=== PATIENT | male | born 1945 | race Caucasian/White ===

== ENCOUNTER 2022-01-07 10:22 | Emergency (ER) | payer MEDICARE, SELFPAY ==
[2022-01-07 10:24] VITALS: BP 160/76; PULSE 81; RESP 18; TEMP 36.6; O2SAT 96; BMI 34.4
--- NOTE | 2022-01-07 10:40 | EKG12_ITS ---
Test Reason : SOB Blood Pressure : / mmHG Vent. Rate : 063 BPM Atrial Rate : 063 BPM P-R Int : 148 ms QRS Dur : 082 ms QT Int : 404 ms P-R-T Axes : 056 038 043 degrees QTc Int : 413 ms Normal sinus rhythm Normal ECG Confirmed by OLINDA RODRIGUEZ, CALISTA ([id number]), editor greeting card AMBROSIO MOREAU ([id number]) on 01/08/2022 11:06:49 AM Referred By: Raoul Confirmed By:CALISTA PRAKASH MD
--- NOTE | 2022-01-07 10:40 | RAD_ITS ---
STUDY: X-RAY CHEST REASON FOR EXAM: Male, 76 years old. Shortness of Breath TECHNIQUE: Single AP portable view of the chest. COMPARISON: None. FINDINGS: EKG electrodes are seen. Mild elevation of the right hemidiaphragm. The lungs are clear. There is no demonstrated pleural abnormality. Normal size heart. Normal mediastinum and geovany. Normal visualized pulmonary arteries. There is atherosclerotic tortuosity of the aortic arch and descending thoracic aorta. There are diffuse degenerative changes of the visualized thoracic spine. Normal visualized ribs, clavicles, and shoulders. There is no demonstrated abnormality of the visualized soft tissue structures of the upper abdomen. RAD/Chest 1 View (Portable) IMPRESSION: No acute abnormality is seen. Electronically Signed: Jesus Stout MD at 11:12 EDT ,
--- NOTE | 2022-01-07 10:41 | ED.VIS.DYS ---
HPI History of Present Illness Chief Complaint: Shortness of Breath Narrative Narrative: Patient with past medical history of hypertension, diabetes, presents with shortness of breath and orthopnea that has had for the last few weeks. States has had few pounds of weight gain. It is worse at night when he tries to lay flat he gets short of breath. He states he becomes diaphoretic and has sweats also. He denies any leg swelling. No fevers or chills. No cough. He may get slight chest pressure. He states he went to [facility] yesterday where he had a work-up and was told everything is fine. He presents again today because he has continued orthopnea and shortness of breath for weeks. [facility] Medical History GERD (gastroesophageal reflux disease) High cholesterol HTN (hypertension) Home Medications albuterol sulfate 90 mcg/actuation aerosol inhaler (Ventolin HFA) 1 - 2 puff inhalation Q4H PRN PRN Wheezing #1 ea 01/07/22 [Rx Last Taken Unknown] aspirin 81 mg tablet,delayed release 81 mg PO DAILY 01/07/22 [History Last Taken Unknown] glimepiride 4 mg tablet 4 mg PO DAILY 01/07/22 [History Last Taken Unknown] lisinopril 10 mg-hydrochlorothiazide 12.5 mg tablet 1 tab PO DAILY 01/07/22 [History Last Taken Unknown] omeprazole 40 mg capsule,delayed release 40 mg PO DAILY 01/07/22 [History Last Taken Unknown] pioglitazone 30 mg tablet 30 mg PO DAILY 01/07/22 [History Last Taken Unknown] potassium chloride 10 mEq capsule,extended release 10 meq PO DAILY 01/07/22 [History Last Taken Unknown] rosuvastatin 10 mg tablet 10 mg PO DAILY 01/07/22 [History Last Taken Unknown] Allergy/AdvReac Type Severity Reaction Status Date / Time metformin Allergy Upset Verified 01/07/22 10:24 Stomach Social History Smoking Status: Former smoker ROS ROS ED ROS Narrative Constitutional: No fever, no chills. HEENT: No sore throat. No neck pain. No loss of vision. No rhinorrhea. Cardiovascular: No chest pain, but occasional light pressure/tightness. No palpitations. No pedal edema. Respiratory: No cough, positive shortness of breath. Orthopnea and mild dyspnea on exertion. Abdominal: No abdominal pain. No nausea. No vomiting. Genitourinary: No dysuria. No hematuria. Musculoskeletal: No myalgias. No arthralgias. Neurologic: No headaches. No dizziness. No lightheadedness. Skin: No rash. No change in color. Psychiatric: No depression. No anxiety. EXAM Physical Exam Narrative Exam Narrative: Afebrile. Vital signs noted. HEENT: Normocephalic. Atraumatic. PERRL, EOMI. Neck soft and supple. No point tenderness or step off. Cardiovascular: Regular rate and rhythm. No murmurs, rubs, or gallops appreciated. Respiratory: No tachypnea. Lungs clear to auscultation bilaterally. No distress. Speaking in full sentences. Resting comfortably on cot. Gastrointestinal: Abdomen soft, nontender, with normoactive bowel sounds. No rebound or guarding. Neurological: Awake. Alert. Nonfocal, nonlateralizing. Skin: No rash. Normal color. No pallor. Musculoskeletal: No pedal edema. Full range of motion extremities. Const Vital Signs: 01/07/22 10:24 01/07/22 10:36 01/07/22 11:28 Temperature 97.9 F Temperature Source Temporal Pulse Rate 81 71 Respiratory Rate 18 18 Respiratory Effort Non-Labored Blood Pressure 160/76 H 132/67 H Blood Pressure Mean 104 88 Pulse Ox 96 93 Oxygen Delivery Method Room Air Room Air MDM MDM MDM Narrative Medical decision making narrative: Comprehensive work-up was pursued. His pulse ox is 96% on room air without evidence of hypoxia. EKG interpreted by myself demonstrates normal sinus rhythm at 63 bpm without ectopy or acute ST changes. No STEMI. CBC is grossly normal with a normal white count of 7.9, hemoglobin 12.3, hematocrit 39.3. Platelet count normal at 316. CMP is grossly unremarkable except for glucose of 189 with a normal anion gap of 5. BUN slightly elevated at 19 with a creatinine of 1.16. Troponin is 6. Beta natruretic peptide normal at 23.9. Chest x-ray interpreted by myself shows no acute process, no pneumonia or pneumothorax. Patient does wear CPAP at night. I am unsure as to the cause of his orthopnea. However, I do feel he can be discharged safely home. He may have a COPD component to this. I will write him for an albuterol inhaler to use and I recommended that he follow-up with pulmonology. Disposition is discharged home in stable condition. Lab Data Attestation: I reviewed the patient's lab results. Labs: Laboratory Results - last 24 hr 01/07/22 01/07/22 01/07/22 10:41 10:41 10:41 WBC 7.9 RBC 4.55 L Hgb 12.3 L Hct 39.3 L MCV 86.4 MCH 27.0 MCHC 31.3 L RDW Std Deviation 47.4 H RDW Coeff of Micky 14.9 H Plt Count 316 MPV 9.2 Immature Gran % (Auto) 0.400 Neut % (Auto) 72.1 H Lymph % (Auto) 16.1 L [place] % (Auto) 7.2 Eos % (Auto) 3.7 Baso % (Auto) 0.5 Absolute Neuts (auto) 5.7 Absolute Lymphs (auto) 1.28 Nucleated RBC % 0 Sodium 137 Potassium 3.9 Chloride 104 Carbon Dioxide 28.0 Anion Gap 5 BUN 19 H Creatinine 1.16 Estim Creat Clear Calc 52.23 Est GFR (MDRD) Af Amer 79 Est GFR (MDRD) Non-Af 65 BUN/Creatinine Ratio 16.4 Glucose 189 H Calcium 8.9 Total Bilirubin 0.50 AST 15 ALT 17 Alkaline Phosphatase 81 Troponin I High Sens 6 B-Natriuretic Peptide 23.9 Total Protein 7.6 Albumin 3.6 Globulin 4.0 Albumin/Globulin Ratio 0.9 Radiography Diagnostic Testing: Clinical Impression(s) from Imaging Studies Chest X-Ray 01/07/22 10:40 IMPRESSION: No acute abnormality is seen. Electronically Signed: Jesus Stout MD at 11:12 EDT , Discharge Plan Triage Chief Complaint: Shortness of Breath ED Provider: Lior Smith Dx/Rx/DC Orders Clinical Impression: SOB (shortness of breath), Orthopnea Instructions: ED Dyspnea Prescriptions: New albuterol sulfate [Ventolin HFA] 90 mcg/actuation HFA aerosol inhaler 1 - 2 puff inhalation Q4H PRN PRN (Reason: Wheezing) Qty: 1 0RF No Action potassium chloride 10 mEq Capsule, Extended Release 10 meq PO DAILY omeprazole 40 mg Capsule,Delayed Release(Dr/Ec) 40 mg PO DAILY aspirin [Aspir-81] 81 mg Tablet,Delayed Release (Dr/Ec) 81 mg PO DAILY glimepiride 4 mg Tablet 4 mg PO DAILY lisinopril-hydrochlorothiazide 10-12.5 mg Tablet 1 tab PO DAILY pioglitazone 30 mg Tablet 30 mg PO DAILY rosuvastatin 10 mg Tablet 10 mg PO DAILY Primary Care Provider: Chaitanya Hernandez Referrals: Kalin Cobos MD [STAFF PHYSICIAN] - 1-2 Weeks Chaitanya Hernandez MD [Primary Care Provider] - 3-5 Days Disposition Disposition: Home, Self Care
[2022-01-07 10:49] LABS: Absolute Lymphocyte Count 1.28 X10^3/uL (0.83-4.51); Absolute Neutrophil Count 5.7 X10^3/uL (2.0-7.7); Basophil# 0.04 X10^3/uL; Basophil% 0.5 % (0-1); Eosinophil# 0.29 X10^3/uL; Eosinophils% 3.7 % (0-5); Hematocrit 39.3 % (40-54); Hemoglobin 12.3 g/dL (13.0-16.5); Lymphocyte # 1.28 X10^3/ul (0.83-4.51); Lymphocyte % 16.1 % (19-41); Mean Corp Hgb Conc 31.3 g/dL (32-36); Mean Corpuscular Volume 86.4 fL (80-94); Mean Platelet Vol. 9.2 fl (6.2-12.0); Monocyte# 0.57 X10^3/uL; Monocyte% 7.2 % (0-10); NRBC Flagged by Analyzer 0 % (0-5); Neutrophil # 5.72 X10^3/uL (2.7-7.7); Neutrophil % 72.1 % (47-70); Platelet Count 316 K/mm3 (150-450); RBC Distribution Width CV 14.9 % (11.6-14.6); RBC Distribution Width SD 47.4 fl (35.1-43.9); Red Blood Count 4.55 M/mm3 (4.6-6.2); White Blood Count 7.9 K/mm3 (4.4-11.0)
[2022-01-07 11:08] LABS: ALB/GLOB Ratio 0.9 RATIO (0.9-2.4); AST(SGOT) 15 U/L (15-37); Alanine Aminotransfer ALT/SGPT 17 U/L (16-61); Albumin, Serum 3.6 g/dL (3.2-5.0); Alkaline Phosphatase 81 U/L (45-117); Anion Gap 5 (5-15); BUN 19 mg/dL (7-18); BUN/Creat Ratio 16.4 RATIO (10-20); Calcium,Total 8.9 mg/dL (8.5-10.1); Chloride 104 mmol/L (98-107); Creatinine, Serum 1.16 mg/dL (0.70-1.30); EST Glomerular Filtration Rate 65 mL/min (>60); Est Glom Filt Rate - Afr Amer 79 mL/min (>60); Estimated Creatinine Clearance 52.23 ml/min; Glucose 189 mg/dL (74-106); Potassium 3.9 mmol/L (3.5-5.1); Protein, Total 7.6 g/dL (6.4-8.2); Sodium Level 137 mmol/L (136-145); Troponin-I HS 6 pg/mL (3.0-78.0)
[2022-01-07 11:10] LABS: BNP,B-Type NATRIURETIC PEPTIDE 23.9 pg/mL (0-100)
[2022-01-07 11:28] VITALS: BP 132/67; PULSE 71; RESP 18; O2SAT 93
== END 2022-01-07 11:54 | disposition home or self-care (01) ==
PROVIDERS: Emergency Provider Emergency Medicine; PCP Family Medicine; Visit Provider Emergency Medicine
DX: R06.02 Shortness of breath (principal); E11.9 Type 2 diabetes mellitus without complications; R06.01 Orthopnea; I10 Essential (primary) hypertension; E78.00 Pure hypercholesterolemia, unspecified; K21.9 Gastro-esophageal reflux disease without esophagitis; Z87.891 Personal history of nicotine dependence; Z79.899 Other long term (current) drug therapy; Z79.82 Long term (current) use of aspirin; Z79.84 Long term (current) use of oral hypoglycemic drugs
CPT/HCPCS: 71045; 80053; 83880; 84484; 85025; 93005; 99283

== ENCOUNTER 2024-02-01 07:20 | Emergency (ER) | payer MEDICARE, SELFPAY ==
[2024-02-01 07:20] VITALS: BP 126/75; PULSE 117; RESP 19; TEMP 36.3; O2SAT 94; BMI 30.6
--- NOTE | 2024-02-01 07:39 | CT_ITS ---
STUDY: CT ABDOMEN AND PELVIS WITH CONTRAST REASON FOR EXAM: Male, 78 years old. Abdominal pain and cramping with diarrhea/constipation. Patient has a history of stage IV colon cancer. RADIATION DOSAGE (If Supplied By Facility): CTDIvol = ( 15.89 ) mGy, DLP = ( 1098.2 ) mGycm TECHNIQUE: Transaxial images were obtained from the dome of the diaphragm to the symphysis pubis without oral contrast. IV 100mL Isovue-370 was administered. Sagittal and coronal images were reconstructed. Individualized dose optimization techniques were used for this CT. COMPARISON: None. FINDINGS: Multiple large pulmonary metastases are seen at the lung bases. The visualized portions of the heart are within normal limits. Multiple hypodense masses are seen in the liver in keeping with metastatic disease. Normal gallbladder and extrahepatic biliary system. Normal spleen. Normal pancreas. Normal bilateral adrenal glands. Normal right kidney. Normal left kidney. Normal visualized stomach. Increased markings in the peritoneal fat surrounding the distal and terminal ileum as it enters the descending colon. Mild degree of enteritis should be ruled out. The patient is status post right hemicolectomy. Scattered sigmoid diverticula. There is non-visualization of the appendix. There is diffuse atherosclerotic calcification of the abdominal aorta, without a demonstrated aneurysm. Normal inferior vena cava. Normal retroperitoneum. Normal urinary bladder. There are prostatic calcifications. Small bilateral inguinal lymph nodes. There are degenerative changes of the visualized lumbar spine. CT/Abdomen/Pelvis W IV Cont ONLY IMPRESSION: Pulmonary and hepatic metastasis. Status post right hemicolectomy with evidence of inflammatory changes in the distal and terminal ileum at the site of the anastomosis with the colon. Localized enteritis should be ruled out. Electronically Signed: Jesus Stout MD at 9:35 EDT ,
--- NOTE | 2024-02-01 07:40 | EDS_ITS ---
HPI HPI - GI History of Present Illness Chief Complaint: Abd Pain Informant: patient and spouse/S.O. Abdominal Pain/Flank Pain Onset: Days Context: Gradual Onset Timing: Continuous Quality: Aching and Cramping Location: Diffuse Current Severity: Mild Maximum Severity: Mild Worsened by: Nothing Relieved by: Nothing Nausea/Vomiting/Emesis GI Symptom: Positive for Nausea and Vomiting Severity: Mild Diarrhea/Melena/Hematochezia GI Symptom: Positive for Diarrhea; Negative for Melena or Hematochezia Onset: Days Stool Quality: Positive for Loose Severity: Mild Associated Symptoms Associated Symptoms: Negative for Dysuria, Frequency, Hematuria or Urgency Narrative Narrative: 78-year-old male history of stage IV colon cancer with metastases to his liver and lungs. Had partial colectomy and tumor resection done on 424 at [facility]. He does have a prior appendectomy. Has been undergoing chemotherapy about every 10 days the last being Thursday a week ago through Dr. Chris Moran oncologist at [facility]. Patient also has a history of diabetes. Says since last Thursday he has had intermittent abdominal pain and cramping. Says he feels bloated. He had some diarrhea. He has been taking Imodium for that. Denies any dysuria. No fever. He had 2 episodes of nausea and vomiting which is resolved. Denies any fevers had some mild chills. Denies any melena. Prior similar symptoms: No Recent Illness/Hospitalization: No [facility] Medical History Sleep apnea Colon cancer GERD (gastroesophageal reflux disease) High cholesterol HTN (hypertension) Home Medications ?Medication ?Instructions ?Recorded ?Last Taken ?Type aspirin 81 mg tablet,delayed 81 mg PO DAILY 01/07/22 Unknown History release glimepiride 4 mg tablet 4 mg PO DAILY 01/07/22 Unknown History lisinopril 10 1 tab PO DAILY 01/07/22 Unknown History mg-hydrochlorothiazide 12.5 mg tablet omeprazole 40 mg capsule,delayed 40 mg PO DAILY 01/07/22 Unknown History release pioglitazone 30 mg tablet 30 mg PO DAILY 01/07/22 Unknown History potassium chloride 10 mEq 10 meq PO DAILY 01/07/22 Unknown History capsule,extended release rosuvastatin 10 mg tablet 10 mg PO DAILY 01/07/22 Unknown History dexamethasone 4 mg tablet mg 02/01/24 Unknown History hydrochlorothiazide 12.5 mg capsule mg 02/01/24 Unknown History lidocaine-prilocaine 2.5 %-2.5 % 02/01/24 Unknown History topical cream mometasone 50 mcg/actuation nasal intranasal 02/01/24 Unknown History spray ondansetron HCl 8 mg tablet mg 02/01/24 Unknown History prochlorperazine maleate 10 mg mg 02/01/24 Unknown History tablet zolpidem 10 mg tablet mg 02/01/24 Unknown History Allergy/AdvReac Type Severity Reaction Status Date / Time lisinopril Allergy Severe Angioedema Verified 02/01/24 07:27 metformin Allergy Upset Verified 02/01/24 07:26 Stomach Surgical History History of ankle surgery History of knee replacement History of appendectomy History of colon resection Social History Smoking Status: Former smoker ROS ROS ED ROS Narrative Nausea, vomiting and diarrhea. Abdominal pain. Constitutional Constitutional ED: Reports chills ENT ENT ED: Denies ear pain Cardiovascular Cardiovascular: Denies chest pain Respiratory/Chest Respiratory/Chest: Denies cough Gastrointestinal Gastrointestinal: Reports abdominal pain, constipation, diarrhea, nausea and vomiting; Denies melena Genitourinary Genitourinary ED: Denies dysuria or hematuria Musculoskeletal Musculoskeletal: Reports back pain; Denies arthralgias Integumentary Denies abscess Neurologic Neurologic: Denies headache(s) Psychiatric Psychiatric: Denies anxiety Endocrine Endocrinology: Denies polydipsia Hematologic/Lymphatic Hematologic/Lymphatic: Denies easy bleeding Allergic/Immunologic Allergic/Immunologic ED: Denies mouth swelling EXAM Physical Exam Narrative Exam Narrative: Well-appearing 78-year-old male. Vital signs are stable. Afebrile. He does not look septic or toxic. He does look mildly dehydrated. H EENT exam pupils round react to light. No facial droop. Dry mucous membranes. Neck nontender no lymphadenopathy. Lungs clear to auscultation bilaterally. Heart tachycardic rate about 115 no murmur. Abdomen soft mildly tender. No peritoneal signs. No hernia. No obvious obstruction. Back nontender. Moving all 4 extremities. Nontender no edema. Neurologically is awake and alert no focal motor deficits. Const Vital Signs: 02/01/24 07:20 02/01/24 08:14 02/01/24 09:17 Temperature 97.4 F L 97.8 F 97.7 F L Temperature Source Temporal Temporal Temporal Pulse Rate 117 H 80 87 Respiratory Rate 19 H 18 16 Blood Pressure 126/75 H 107/66 127/68 H Blood Pressure Mean 92 79 87 Pulse Ox 94 99 98 Oxygen Delivery Method Room Air Room Air Room Air Positive well nourished and well developed; Negative for cachectic, contractures or unkempt General Appearance ED: well developed and NAD; Negative for unkempt, cachectic, contractures or pallor Nutritional Appearance: Negative for cachectic HEENT Reports dry mucous membranes; Denies moist mucous membranes normocephalic and atraumatic; Negative for trauma or tenderness Mouth ED: Yes dry mucous membranes Mouth: dry mucous membranes Eyes PERRL and EOMs intact bilaterally General Eye ED: Negative for pale conjunctiva or scleral icterus Neck no lymphadenopathy, supple and no JVD General: Negative for tenderness Carotids: Negative for other Lymph Lymphatic: Negative for other Resp normal respiratory effort and clear to auscultation bilaterally Effort and Inspection: Negative for respiratory distress, retractions or pain with movement Auscultation: Negative for rales, rhonchi or wheezes Cardio regular rhythm, S1 normal heart sound, S2 normal heart sound and no murmurs; Negative for regular rate Rate: tachycardic Rhythm: Negative for abnormal rhythm GI non-tender, non-distended and no masses Inspection: Negative for abdominal distention Palpation: soft and tender; Negative for guarding, rigid, hernia, mass, pulsatile mass or rebound tenderness present Back/Spine no CVA tenderness General Back: Negative for CVA tenderness Cervical Spine: Negative for cervical spine tenderness Thoracic Spine / Upper Back: Negative for thoracic spinal tenderness Lumbar Spine / Lower Back: Negative for lumbar spinal tenderness Coccyx: Negative for other Extremity full ROM General Extremety ED: Negative for edema or tenderness General Extremity: Negative for edema Neuro CN's II-XII intact bilaterally and moves all extremities Sensorium / Orientation: alert, oriented to person, oriented to place and oriented to time Motor Exam: strength 5/5 throughout; Negative for general weakness or strength abnormal Psych mental status grossly normal and thought process normal Appearance: Negative for unkempt Attitude: No agitated Mood & Affect: Negative for depressed, anxious or tearful Skin no wounds General Skin Exam: Negative for jaundice or pallor Lesions: no lesions Rashes: no rashes Trauma: Negative for abrasion Nails: Negative for discolored MDM MDM MDM Narrative Medical decision making narrative: 78-year-old male with stage IV metastatic: CA with abdominal pain, cramping and diarrhea. Clinically looks dehydrated and received IV fluids. Morphine for pain and Zofran for nausea. CAT scan and labs are pending. Repeat exam at 10:26 AM patient feeling much better. Abdomen benign. Nausea is resolved. We went over his test results. He is comfortable being discharged home. He has a follow-up appointment to see his oncologist Dr. Chris Moran tomorrow at the [facility]. He knows to return if worse. He has nausea medication at home that he can use. Lab Data Attestation: I reviewed the patient's lab results. Lab results narrative: CBC shows a white count 2.4. H&H 12.6 and 40. Platelets are too numerous to count. Chemistry shows sodium 131. Gap 7. BUN 27 creatinine 1.2 consistent with mild dehydration. He is receiving IV fluids. Glucose 184. Liver enzymes unremarkable. Lipase normal. CAT scan shows the known cancer with liver and lung mets. No signs of acute obstruction or other acute abnormality. Labs: Laboratory Results - last 24 hr 02/01/24 08:05 WBC 2.4 L RBC 5.05 Hgb 12.6 L Hct 40.8 MCV 80.8 MCH 25.0 L MCHC 30.9 L RDW Std Deviation 56.2 H RDW Coeff of Micky 19.9 H Plt Count TNP MPV 9.0 Immature Gran % (Auto) 0.000 Neut % (Auto) 47.0 Lymph % (Auto) 13.6 L [place] % (Auto) 37.7 H Eos % (Auto) 1.3 Baso % (Auto) 0.4 Absolute Neuts (auto) 1.1 L Absolute Lymphs (auto) 0.32 L Nucleated RBC % 0 Differential Comment SCANNED Diff Path Review May foll Platelet Estimate ADEQUATE Sodium 131 L Potassium 3.8 Chloride 100 Carbon Dioxide 24.0 Anion Gap 7 BUN 27 H Creatinine 1.20 Estim Creat Clear Calc 55.68 Est GFR (MDRD) Af Amer 76 Est GFR (MDRD) Non-Af 63 BUN/Creatinine Ratio 22.5 H Glucose 184 H Calcium 8.8 Total Bilirubin 1.30 H AST 10 L ALT 8 L Alkaline Phosphatase 86 Total Protein 6.9 Albumin 2.6 L Globulin 4.3 H Albumin/Globulin Ratio 0.6 L Lipase < 10 L Radiography Diagnostic Testing: Clinical Impression(s) from Imaging Studies Abdomen/Pelvis CT 02/01/24 07:39 IMPRESSION: Pulmonary and hepatic metastasis. Status post right hemicolectomy with evidence of inflammatory changes in the distal and terminal ileum at the site of the anastomosis with the colon. Localized enteritis should be ruled out. Electronically Signed: Jesus Stout MD at 9:35 EDT , Discharge Plan Triage Chief Complaint: Abd Pain ED Provider: Genaro Pressley Dx/Rx/DC Orders Clinical Impression: Abdominal pain, History of colon cancer, History of chemotherapy, Acute dehydration Instructions: Abdominal Pain, ED Dehydration (Adult) Prescriptions: No Action potassium chloride 10 mEq Capsule, Extended Release 10 meq PO DAILY omeprazole 40 mg Capsule,Delayed Release(Dr/Ec) 40 mg PO DAILY aspirin [Aspir-81] 81 mg Tablet,Delayed Release (Dr/Ec) 81 mg PO DAILY glimepiride 4 mg Tablet 4 mg PO DAILY lisinopril-hydrochlorothiazide 10-12.5 mg Tablet 1 tab PO DAILY pioglitazone 30 mg Tablet 30 mg PO DAILY rosuvastatin 10 mg Tablet 10 mg PO DAILY ondansetron HCl 8 mg tablet Patient Comments: TAKE 1 TABLET BY MOUTH EVERY 8 HOURS NEEDED FOR NAUSEA AND VOMITING prochlorperazine maleate 10 mg tablet Patient Comments: TAKE 1 TABLET BY MOUTH EVERY 6 HOURS NEEDED lidocaine-prilocaine 2.5-2.5 % cream Patient Comments: APPLY CREAM TOPICALLY TO AFFECTED AREA NEEDED dexamethasone 4 mg tablet Patient Comments: TAKE 1 TABLET BY MOUTH TWICE DAILY WITH MEAL(S) FOR 3 DAYS BEGINNING THE DAY AFTER CHEMOTHERAPY TREATMENT hydrochlorothiazide 12.5 mg capsule Patient Comments: TAKE 1 CAPSULE BY MOUTH ONCE DAILY mometasone 50 mcg/actuation spray,non-aerosol INTRANASAL Patient Comments: USE 1 SPRAY(S) IN EACH NOSTRIL TWICE DAILY zolpidem 10 mg tablet Patient Comments: TAKE 1 TABLET BY MOUTH AT BEDTIME Primary Care Provider: Chaitanya Hernandez Referrals: Chaitanya Hernandez MD [Primary Care Provider] - Chris Moran DO [Med Staff - Active Staff] - 1 Day Activity Restrictions/Additional Instructions: Plenty of fluids and rest. Water, Gatorade and 7-Up. Use your nausea medication as needed. Follow-up with your oncologist Dr. Chris Moran tomorrow as scheduled. Print Language: Czech Disposition Disposition: Home, Self Care
[2024-02-01] MEDS: 0.9% Normal Saline (1000mL) 1,000 ML 999 ML IV (08:05)
[2024-02-01] MEDS: Morphine 4 MG/ML Syringe IV (08:05)
[2024-02-01] MEDS: Ondansetron 4 MG/2 ML Vial IV (08:05)
[2024-02-01 08:14] VITALS: BP 107/66; PULSE 80; RESP 18; TEMP 36.6; O2SAT 99
[2024-02-01 08:19] LABS: Absolute Lymphocyte Count 0.32 X10^3/uL (0.83-4.51); Absolute Neutrophil Count 1.1 X10^3/uL (2.0-7.7); Basophil# 0.01 X10^3/uL; Basophil% 0.4 % (0-1); Eosinophil# 0.03 X10^3/uL; Eosinophils% 1.3 % (0-5); Hematocrit 40.8 % (40-54); Hemoglobin 12.6 g/dL (13.0-16.5); Lymphocyte # 0.32 X10^3/ul (0.83-4.51); Lymphocyte % 13.6 % (19-41); Mean Corp Hgb Conc 30.9 g/dL (32-36); Mean Corpuscular Volume 80.8 fL (80-94); Monocyte# 0.89 X10^3/uL; Monocyte% 37.7 % (0-10); NRBC Flagged by Analyzer 0 % (0-5); Neutrophil # 1.11 X10^3/uL (2.7-7.7); POSITIVE COUNT YES; POSITIVE DIFFERENTIAL YES; POSITIVE MORPHOLOGY YES; RBC Distribution Width CV 19.9 % (11.6-14.6); RBC Distribution Width SD 56.2 fl (35.1-43.9); Red Blood Count 5.05 M/mm3 (4.6-6.2); White Blood Count 2.4 K/mm3 (4.4-11.0)
[2024-02-01 08:35] LABS: ALB/GLOB Ratio 0.6 RATIO (0.9-2.4); AST(SGOT) 10 U/L (15-37); Alanine Aminotransfer ALT/SGPT 8 U/L (16-61); Albumin, Serum 2.6 g/dL (3.2-5.0); Alkaline Phosphatase 86 U/L (45-117); Anion Gap 7 (5-15); BUN 27 mg/dL (7-18); BUN/Creat Ratio 22.5 RATIO (10-20); Calcium,Total 8.8 mg/dL (8.5-10.1); Chloride 100 mmol/L (98-107); EST Glomerular Filtration Rate 63 mL/min (>60); Est Glom Filt Rate - Afr Amer 76 mL/min (>60); Estimated Creatinine Clearance 55.68 ml/min; Globulin 4.3 g/dL (2.2-4.2); Glucose 184 mg/dL (74-106); Lipase < 10 U/L (13-75); Potassium 3.8 mmol/L (3.5-5.1); Protein, Total 6.9 g/dL (6.4-8.2); Sodium Level 131 mmol/L (136-145)
[2024-02-01 08:41] LABS: Differential Indicated SCAN CRITERIA MET
[2024-02-01 08:42] LABS: Differential Comment SCANNED; Platelet Estimate ADEQUATE (ADEQ)
[2024-02-01 09:17] VITALS: BP 127/68; PULSE 87; RESP 16; TEMP 36.5; O2SAT 98
[2024-02-01 10:34] VITALS: BP 118/80; PULSE 87; RESP 16; O2SAT 97
[2024-02-01 10:47] LABS: Bacteria 0 SEEN /hpf (None Seen); Mucous, Urine 0 SEEN /hpf (<or=2+); Red Blood Cells-Urine 0 SEEN /hpf (0-5)
[2024-02-01 10:48] LABS: Color, Urine Yellow (Yellow); Glucose, Dipstick Normal (Normal); Ketone-Dipstick Negative (Negative); Leukocyte Esterase-Dipstick 25 /ul (Negative); Nitrite-Dipstick Positive (Negative); Occult Blood-Urine 10 /ul (Negative); Protein-Dipstick 30 mg/dl (Negative); Specific Gravity, Urine 1.005 (1.002-1.030); Urine Bilirubin Dipstick Negative (Negative); Urine Clarity Clear (Clear); Urine Urobilinogen 1 mg/dl (Normal); Urine pH 6.5 (5.0 - 8.0)
[2024-02-01 11:01] LABS: Squamous Epithelial Cells - UA 0-5 SEEN /hpf (0-5); White Blood Cells 0-5 SEEN /hpf (0-5)
[2024-02-02 14:54] LABS: Pathologist Review Reviewed
== END 2024-02-01 10:43 | disposition home or self-care (01) ==
PROVIDERS: Emergency Provider Emergency Medicine; PCP Family Medicine; Visit Provider Emergency Medicine
DX: R10.9 Unspecified abdominal pain (principal); C78.7 Secondary malignant neoplasm of liver and intrahepatic bile duct; C78.01 Secondary malignant neoplasm of right lung; C78.02 Secondary malignant neoplasm of left lung; E11.9 Type 2 diabetes mellitus without complications; R11.2 Nausea with vomiting, unspecified; E86.0 Dehydration; R19.7 Diarrhea, unspecified; I10 Essential (primary) hypertension; E78.00 Pure hypercholesterolemia, unspecified; Z79.82 Long term (current) use of aspirin; Z79.84 Long term (current) use of oral hypoglycemic drugs; Z79.899 Other long term (current) drug therapy; Z87.891 Personal history of nicotine dependence; Z90.49 Acquired absence of other specified parts of digestive tract
CPT/HCPCS: 36591; 74177; 80053; 81001; 83690; 85025; 96361; 96374; 96375; 99284; J7030; Q9967; A4216; J2405

== ENCOUNTER 2024-11-24 07:46 | Outpatient (CLI) | payer MEDICARE, SELFPAY ==
[2024-11-24 08:01] VITALS: BP 126/55; PULSE 101; RESP 18; TEMP 36.6; O2SAT 93; BMI 28.6
[2024-11-24 08:38] VITALS: BP 105/44; PULSE 85; RESP 18; TEMP 37; O2SAT 96
[2024-11-24 09:38] VITALS: BP 103/49; PULSE 74; RESP 16; TEMP 36.9; O2SAT 96
[2024-11-24 10:42] VITALS: BP 97/43; PULSE 74; RESP 16; TEMP 36.8; O2SAT 92
[2024-11-24 11:40] VITALS: BP 121/66; PULSE 84; RESP 16; TEMP 36.2
== END 2024-11-24 23:59 | disposition home or self-care (01) ==
LOC: MEDOUTP 07:48
PROVIDERS: PCP Family Medicine; Referring Provider Internal Medicine Hematology & Oncology; Visit Provider Internal Medicine Hematology & Oncology
DX: D64.9 Anemia, unspecified (principal)
CPT/HCPCS: 36430; 86850; 86900; 86901; 86920; P9016; A4216

== ENCOUNTER 2025-01-09 13:12 | Inpatient (IN) | payer MEDICARE, SELFPAY ==
[2025-01-09] VITALS (17 sets, daily range): BP systolic 96–113; BP diastolic 47–56; PULSE 67–106; RESP 16–34; TEMP 36–37.2; O2SAT 90–98; BMI 25.0; BMI 25.7
--- NOTE | 2025-01-09 13:31 | EKG12_ITS ---
Test Reason : SOB Blood Pressure : */* mmHG Vent. Rate : 86 BPM Atrial Rate : 86 BPM P-R Int : 128 ms QRS Dur : 88 ms QT Int : 402 ms P-R-T Axes : 53 38 26 degrees QTcB Int : 481 ms Sinus rhythm with Premature atrial complexes BORDERLINE Reconfirmed by Brayan Johansen ([id number]), editor index JIM IBARRA ([id number]) on 01/11/2025 11:18:28 AM Referred By: Confirmed By: Brayan Johansen
[2025-01-09] MEDS: Piperacil/Tazobactam 4.5 GM in 0.9% Normal Saline (100mL MB+) 100 ML IV (14:01)
[2025-01-09] MEDS: 0.9% Normal Saline (1000mL) 1,000 ML 999 ML IV ×3 (14:01→20:12)
--- NOTE | 2025-01-09 14:04 | EX.ED.DYSGE1 ---
"HPI History of Present Illness Chief Complaint: Shortness of Breath Informant: patient and family Narrative Narrative: Sent from PCP office for admission for concerning sepsis. I spoke with Dr. Hudson prior to patient arrival. 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 He stopped his chemotherapy few months ago due to side effects. Couple weeks ago was admitted to [facility] for day due to dehydration. Last 2 days increasing productive sputum. He denies urinary symptoms denies vomiting diarrhea. Reports heart rate was 120s in the office he had a 20 pound weight loss. Patient had prescription of Augmentin and Z-Angelo for which they picked up however not started. Outpatient chest x-ray concerning for new left sided pneumonia. Reported his white count increase also from lab work. Oncologist Dr. Moran. Prior similar symptoms: Yes [facility] Medical History Sleep apnea Colon cancer GERD (gastroesophageal reflux disease) High cholesterol HTN (hypertension) Home Medications ?Medication ?Instructions ?Recorded ?Last Taken ?Type aspirin 81 mg tablet,delayed 81 mg PO DAILY 01/07/22 01/08/25 History release glimepiride 4 mg tablet 4 mg PO DAILY 01/07/22 01/09/25 History omeprazole 40 mg capsule,delayed 40 mg PO DAILY 01/07/22 01/08/25 History release pioglitazone 30 mg tablet 30 mg PO DAILY 01/07/22 01/08/25 History rosuvastatin 10 mg tablet 10 mg PO DAILY 01/07/22 01/09/25 History mometasone 50 mcg/actuation nasal 2 spray intranasal DAILY 02/01/24 01/08/25 History spray ondansetron HCl 8 mg tablet 8 mg PO Q8H PRN nausea and vomiting 02/01/24 Unknown History prochlorperazine maleate 10 mg 10 mg PO Q6H PRN nausea and 02/01/24 Unknown History tablet vomiting zolpidem 10 mg tablet 10 mg PO QHS PRN PRN sleep 02/01/24 Unknown History insulin glargine 100 unit/mL (3 20 unit subcut DAILY 11/24/24 Unknown History mL) subcutaneous pen (Lantus Solostar U-100 Insulin) acyclovir 400 mg tablet 400 mg PO BID 01/09/25 01/09/25 History amoxicillin 875 mg-potassium 1 tab PO BID 01/09/25 Unknown History clavulanate 125 mg tablet azithromycin 250 mg tablet 250 mg PO UD 01/09/25 Unknown History hydrochlorothiazide 12.5 mg tablet 12.5 mg PO DAILY 01/09/25 01/09/25 History magnesium chloride 71.5 mg 71.5 mg PO BID 01/09/25 01/09/25 History (magnesium chloride) tablet,delayed release (Slow-Mag) mirtazapine 15 mg tablet 15 mg PO QHS 01/09/25 Unknown History potassium chloride 10 mEq 10 meq PO BID 01/09/25 01/09/25 History tablet,extended release Allergy/AdvReac Type Severity Reaction Status Date / Time lisinopril Allergy Severe Angioedema Verified 01/09/25 13:14 metformin Allergy Upset Verified 01/09/25 13:14 Stomach Surgical History History of ankle surgery History of knee replacement History of appendectomy History of colon resection Social History housing: house Smoking Status: Former smoker ROS ROS ED Constitutional Constitutional ED: Denies chills, fever(s) or sweats ENT ENT ED: Denies sore throat Cardiovascular Cardiovascular: Denies chest pain, leg edema, palpitations or racing heartbeat Respiratory/Chest Respiratory/Chest: Reports cough; Denies dyspnea or dyspnea on exertion Gastrointestinal Gastrointestinal: Denies abdominal pain, diarrhea, nausea or vomiting Genitourinary Genitourinary ED: Denies dysuria, hematuria or urinary frequency Musculoskeletal Musculoskeletal: Denies back pain, extremity pain or neck pain Integumentary Denies rash or wounds Neurologic Neurologic: Denies headache(s), paresthesias or weakness EXAM Physical Exam Const Vital Signs: 01/09/25 13:13 01/09/25 13:58 01/09/25 13:58 Temperature 97.8 F 98.9 F Temperature Source Oral Oral Pulse Rate 106 H 86 Respiratory Rate 20 H 20 H Respiratory Effort Respiratory Depth Respiratory Pattern Blood Pressure 113/56 L 112/53 L Blood Pressure Mean 75 72 Pulse Ox 93 92 92 Oxygen Delivery Method Room Air Room Air Room Air 01/09/25 13:58 01/09/25 14:14 01/09/25 15:00 Temperature 98.6 F 98.6 F Temperature Source Oral Oral Pulse Rate 81 79 Respiratory Rate 21 H 18 Respiratory Effort Normal Non-Labored Respiratory Depth Normal Respiratory Pattern Normal Blood Pressure 96/54 L 96/53 L Blood Pressure Mean 68 67 Pulse Ox 90 90 Oxygen Delivery Method Room Air Room Air Room Air 01/09/25 16:00 Temperature 98.6 F Temperature Source Oral Pulse Rate 73 Respiratory Rate 18 Respiratory Effort Respiratory Depth Respiratory Pattern Blood Pressure 96/56 L Blood Pressure Mean 69 Pulse Ox 98 Oxygen Delivery Method Room Air Positive well nourished and well developed Constitutional Narrative: Nontoxic, no respiratory distress. General Appearance ED: well developed and NAD HEENT Reports moist mucous membranes normocephalic and atraumatic Eyes General Eye ED: Yes normal appearance of both eyes Neck full ROM Chest Wall Chest: Negative for tenderness Resp normal respiratory effort and normal air movement Effort and Inspection: symmetric chest movement; Negative for respiratory distress Cardio regular rhythm and no murmurs Rate: tachycardic Peripheral Pulses: pulses 2+ throughout GI normal to inspection, nondistended, normoactive bowel sounds and non-tender Palpation: Negative for guarding or rebound tenderness present Extremity normal to inspection General Extremety ED: Negative for edema or tenderness General Extremity: Negative for edema Neuro oriented x3 and no sensory deficits noted Sensorium / Orientation: awake and alert Skin no rashes or lesions noted and no wounds MDM MDM MDM Narrative Medical decision making narrative: Interventions / MDM: Differential diagnosis: Sepsis, pneumonia, metastatic cancer history, anemia Diagnosis considered but do not suspect: N/A My EKG interpretation: Sinus rate of 86, no ST changes. Imaging independently reviewed and interpreted by myself: 1 view chest x-ray: Right lower lobe mass structure noted left lower lobe infiltrative findings. External documents reviewed: Faxed paperwork from primary care chest X today small area of consolidation left lower lobe increasing pulmonary metastasis. Patient outpatient white count of 22 with hemoglobin 7.6. Test considered but not ordered:N/A ED course: Patient here for new pneumonia tachycardic. There is concerns for sepsis. 93% room air. Sepsis labs were ordered. Labs obtain outside hospital system. Will recheck labs and chest x-ray. Blood cultures ordered along with lactic acid. He is covered with Zosyn and vancomycin with his hospitalization 2 weeks ago. 1515: Hemoglobin returned at 5.9. Denies any black or bloody stools. Patient family was transfused blood approximately a month ago as an outpatient. From labs hemoglobin was 12.6 in January of last year. Per family when he was transfused is around the 7 range when he was discharged from the hospital couple weeks ago he was in the 8 range. No cardiac history. Rectal exam had some brown stools with Hemoccult sent. Will type and cross for 1 unit of blood. 1630: Hemoccult returned negative. Patient with pneumonia, anemia, will discuss with hospitalist for admission. I did discuss with GI Dr. Friend, patient was declining any investigations for the anemia from a GI standpoint. Lactic acid was normal. Initial tachycardia white count 13.7 meeting SIRS criteria. Normal creatinine, normal lactic acid, blood pressure 96/56. Currently on room air. Does not meet sepsis at this time. 1640: I spoke with Dr. Baker of the patient's history and findings. Pressures in the 90s, he was placed in the ICU for close monitoring. Re-evaluation: stable Disposition discussed with patient/family/significant other: Patient and family Case discussed with consulting clinician: Gastroenterology, hospitalist This note was generated with [employer] dictation software. It may contain incorrect words, spelling, and punctuation that were not noted in checking the note before signing. Lab Data Attestation: I reviewed the patient's lab results. Labs: Laboratory Results - last 24 hr 01/09/25 14:08 WBC 13.7 H RBC 2.19 L Hgb 5.9 L* Hct 19.8 L MCV 90.4 MCH 26.9 L MCHC 29.8 L RDW Std Deviation 69.5 H RDW Coeff of Micky 21.6 H Plt Count 280 MPV 9.8 Immature Gran % (Auto) 1.200 H Neut % (Auto) 87.1 H Lymph % (Auto) 6.0 L [place] % (Auto) 5.3 Eos % (Auto) 0.1 Baso % (Auto) 0.3 Absolute Neuts (auto) 11.9 H Absolute Lymphs (auto) 0.82 L Nucleated RBC % 0 Differential Comment SCANNED Platelet Estimate ADEQUATE Polychromasia 1+ Hypochromasia 2+ Anisocytosis 2+ PT 16.4 H INR 1.3 APTT 39.6 H Sodium 133 Potassium 3.6 Chloride 96 L Carbon Dioxide 26.0 Anion Gap 11 BUN 19 Creatinine 1.05 Estim Creat Clear Calc 55.08 Est GFR (MDRD) Non-Af 73 BUN/Creatinine Ratio 17.7 Glucose 177 H Lactic Acid 1.4 Calcium 8.5 Total Bilirubin 0.93 AST 29 ALT 14 Alkaline Phosphatase 130 H Total Protein 7.5 Albumin 2.4 L Globulin 5.1 H Albumin/Globulin Ratio 0.5 L Critical Care Time Critical Care Time: Yes Critical care time (excluding procedures): 30-74 minutes, Discussing w/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, Discussing w/Consultants, Arranging Admission or Transfer, Performing Direct Patient Care at Bedside and - (35 minutes) Discharge Plan Triage Chief Complaint: Shortness of Breath ED Provider: Alexandro Navarro Dx/Rx/DC Orders Clinical Impression: Pneumonia, Anemia, Colon cancer metastasized to multiple sites Prescriptions: No Action omeprazole 40 mg Capsule,Delayed Release(Dr/Ec) 40 mg PO DAILY aspirin [Aspir-81] 81 mg Tablet,Delayed Release (Dr/Ec) 81 mg PO DAILY glimepiride 4 mg Tablet 4 mg PO DAILY Patient Comments: was told today by Dr Mazariegos to stop taking pioglitazone 30 mg Tablet 30 mg PO DAILY rosuvastatin 10 mg Tablet 10 mg PO DAILY insulin glargine [Lantus Solostar U-100 Insulin] 100 unit/mL (3 mL) insulin pen 20 unit SUBCUT DAILY Patient Comments: USE 20 UNITS SUBCUTANEOUSLY ONCE A DAY IF SUGAR LEVELS ARE OVER 200 IN THE MORNING BEFORE BREAKFAST states hasn't had insulin since he had chemo potassium chloride 10 mEq tablet extended release 10 meq PO BID acyclovir 400 mg tablet 400 mg PO BID hydrochlorothiazide 12.5 mg tablet 12.5 mg PO DAILY Slow-Mag 71.5 mg tablet,delayed release (DR/EC) 71.5 mg PO BID azithromycin 250 mg tablet 250 mg PO UD Patient Comments: has not started yet mirtazapine 15 mg tablet 15 mg PO QHS amoxicillin-pot clavulanate 875-125 mg tablet 1 tab PO BID Patient Comments: has not started yet ondansetron HCl 8 mg tablet 8 mg PO Q8H PRN (Reason: nausea and vomiting) Patient Comments: TAKE 1 TABLET BY MOUTH EVERY 8 HOURS NEEDED FOR NAUSEA AND VOMITING prochlorperazine maleate 10 mg tablet 10 mg PO Q6H PRN (Reason: nausea and vomiting) Patient Comments: TAKE 1 TABLET BY MOUTH EVERY 6 HOURS NEEDED mometasone 50 mcg/actuation spray,non-aerosol 2 spray INTRANASAL DAILY Patient Comments: USE 1 SPRAY(S) IN EACH NOSTRIL TWICE DAILY zolpidem 10 mg tablet 10 mg PO QHS PRN PRN (Reason: sleep) Patient Comments: TAKE 1 TABLET BY MOUTH AT BEDTIME Primary Care Provider: Chaitanya Mazariegos Referrals: Chaitanya Mazariegos MD [Primary Care Provider] - Print Language: Palestinian Disposition Disposition: Acute Care Hospital [facility]"
--- NOTE | 2025-01-09 14:10 | RAD_ITS ---
PROCEDURE: CHEST 1 VIEW (PORTABLE) 01/09/2025 REASON FOR EXAM: COUGH TECHNIQUE: Frontal view of the chest.. AP portable upright radiograph of the chest. COMPARISON: Chest x-ray study dated 01/07/2022 FINDINGS: Heart and Mediastinum: Heart size and configuration are within normal limits. Pulmonary vasculature is prominent centrally. Arteriosclerotic vascular disease of the aorta is noted. Trachea is midline. Lungs: A 4.8 cm nodular density is noted in the right lower lobe. Prominent alveolar markings are noted in the left lung. A 3.3 cm nodular density is projected over the left upper lobe laterally. Small bilateral pleural effusions are noted. Compressive atelectasis of the adjacent lung bases is noted. Alveolar airspace disease processes are seen in the lower lobes bilaterally. Bones: Diffuse osteopenia of the bony thorax is seen. No acute osseous abnormality is noted. A left-sided central venous line port tip is located in the region of the superior vena cava. Cardiac leads overlie the chest. RAD/Chest 1 View (Portable) IMPRESSION: Bilateral airspace disease processes most likely representing pneumonic infiltr ates and/or compressive atelectasis. Small bilateral pleural effusions with adjacent compressive atelectasis of the lung bases. Recommendation: Follow-up x-ray to follow these processes until they completely resolve to exclude underlying pathology. CT examination may also be warranted if clinically warranted. Reading Location: [id number]
[2025-01-09 14:21] LABS: Hematocrit 19.8 % (40-54); Immature Granulocytes Count 0.170 X10^3/uL (0.0-0.0); Mean Corp Hgb Conc 29.8 g/dL (32-36); Mean Corpuscular Volume 90.4 fL (80-94); Mean Platelet Vol. 9.8 fl (6.2-12.0); NRBC Flagged by Analyzer 0 % (0-5); POSITIVE COUNT YES; POSITIVE MORPHOLOGY YES; Platelet Count 280 K/mm3 (150-450); RBC Distribution Width CV 21.6 % (11.6-14.6); RBC Distribution Width SD 69.5 fl (35.1-43.9); Red Blood Count 2.19 M/mm3 (4.6-6.2); White Blood Count 13.7 K/mm3 (4.4-11.0)
[2025-01-09 14:30] LABS: Differential Indicated SCAN CRITERIA MET
[2025-01-09 14:34] LABS: Prothrombin Time (Protime)PT. 16.4 SECONDS (11.7-14.9)
[2025-01-09 14:35] LABS: Partial Thromboplast Time 39.6 Seconds (24.1-36.2)
[2025-01-09 14:40] LABS: Hemoglobin 5.9 g/dL (13.0-16.5)
[2025-01-09 15:03] LABS: AST(SGOT) 29 U/L (<=37); Alanine Aminotransfer ALT/SGPT 14 U/L (<=46); Albumin, Serum 2.4 g/dL (3.4-4.8); Alkaline Phosphatase 130 U/L (40-129); Anion Gap 11 (5-15); BUN 19 mg/dL (4-19); BUN/Creat Ratio 17.7 RATIO (10-20); Calcium,Total 8.5 mg/dL (7.6-11.0); Carbon Dioxide 26.0 mmol/L (21.0-32.0); Chloride 96 mmol/L (98-108); Estimated Creatinine Clearance 55.08 ml/min (50-250); Globulin 5.1 g/dL (2.2-4.2); Glucose 177 mg/dL (70-99); Potassium 3.6 mmol/L (3.3-5.1)
[2025-01-09] MEDS: Vancomycin HCl 1,750 MG in 0.9% Normal Saline (500mL Bag) 500 ML 250 MG IV (15:10)
[2025-01-09 15:22] LABS: Differential Comment SCANNED
[2025-01-09 15:23] LABS: Anisocytosis 2+; Polychromasia 1+
[2025-01-09 15:24] LABS: Hypochromasia 2+
--- NOTE | 2025-01-09 16:40 | SEPSISATNOTE ---
Sepsis Attestation Sepsis Alert: Yes Sepsis Attestation: Agree w/Sepsis Date exam was performed: 01/09/25 Time exam was performed: 16:40 Possible Source of Sepsis: Pulmonary Supportive Findings: Systolic blood pressure about 94-96, leukocytosis, severe anemia Fluid Resuscitation Fluid resuscitation indicated?: Yes Fluid Resuscitation ordered: 30 ml/kg fluid bolus ordered Amount of fluid ordered: 2,230 Sepsis Note Date exam was performed: 01/09/25 Time exam was performed: 19:58 Sepsis Attestation: Sepsis re-evaluation was performed Response to fluids: Fluid responsive hypotension
--- NOTE | 2025-01-09 16:46 | PCM.HP.STD ---
HPI - General General Date of Admission: 01/09/25 Date of Service: 01/09/25 Chief Complaint: Productive cough, mild shortness of breath for 1 to 2 weeks HPI Narrative DIPTI SIERRA, is a 79 M who was sent to ED by PCP for productive cough, shortness of breath for about 2 weeks. He is not doing well after recent chemotherapy about 2 weeks ago, FOLFIRI by his oncologist Dr. Chris Moran. After chemotherapy patient had diarrhea, weakness, nausea and vomiting decreased oral intake and loss of weight from 180 to 160 pounds. Since then patient also getting productive cough with brownish/greenish sputum along with mild shortness of breath. He denies any fever or chills. His diarrhea has been resolved 2 days in the PCP office, he was found to have tachycardia heart rate more than 100 and, leukocytosis, 22.4 thousand, anemia hemoglobin 7.6 normal platelet count. Chest x-ray was done which shows left lower lobe consolidation and pulmonary metastasis. In ED, patient blood pressure was found very low, systolic 94, clinically dry, short of breath requiring 2 L of oxygen. He was afebrile. H&H also found 5.9/19.8% Patient finally admitted in ICU with concern of possible sepsis [facility] Medical History Sleep apnea Colon cancer GERD (gastroesophageal reflux disease) High cholesterol HTN (hypertension) Home Medications ?Medication ?Instructions ?Recorded ?Last Taken ?Type aspirin 81 mg tablet,delayed 81 mg PO DAILY 01/07/22 01/08/25 History release glimepiride 4 mg tablet 4 mg PO DAILY 01/07/22 01/09/25 History omeprazole 40 mg capsule,delayed 40 mg PO DAILY 01/07/22 01/08/25 History release pioglitazone 30 mg tablet 30 mg PO DAILY 01/07/22 01/08/25 History rosuvastatin 10 mg tablet 10 mg PO DAILY 01/07/22 01/09/25 History mometasone 50 mcg/actuation nasal 2 spray intranasal DAILY 02/01/24 01/08/25 History spray ondansetron HCl 8 mg tablet 8 mg PO Q8H PRN nausea and vomiting 02/01/24 Unknown History prochlorperazine maleate 10 mg 10 mg PO Q6H PRN nausea and 02/01/24 Unknown History tablet vomiting zolpidem 10 mg tablet 10 mg PO QHS PRN PRN sleep 02/01/24 Unknown History insulin glargine 100 unit/mL (3 20 unit subcut DAILY 11/24/24 Unknown History mL) subcutaneous pen (Lantus Solostar U-100 Insulin) acyclovir 400 mg tablet 400 mg PO BID 01/09/25 01/09/25 History amoxicillin 875 mg-potassium 1 tab PO BID 01/09/25 Unknown History clavulanate 125 mg tablet azithromycin 250 mg tablet 250 mg PO UD 01/09/25 Unknown History hydrochlorothiazide 12.5 mg tablet 12.5 mg PO DAILY 01/09/25 01/09/25 History magnesium chloride 71.5 mg 71.5 mg PO BID 01/09/25 01/09/25 History (magnesium chloride) tablet,delayed release (Slow-Mag) mirtazapine 15 mg tablet 15 mg PO QHS 01/09/25 Unknown History potassium chloride 10 mEq 10 meq PO BID 01/09/25 01/09/25 History tablet,extended release Allergy/AdvReac Type Severity Reaction Status Date / Time lisinopril Allergy Severe Angioedema Verified 01/09/25 13:14 metformin Allergy Upset Verified 01/09/25 13:14 Stomach Surgical History History of ankle surgery History of knee replacement History of appendectomy History of colon resection Social History housing: house Smoking Status: Former smoker ROS ROS Narrative Constitutional: Reports fatigue and weakness after chemotherapy. No fever. Fatigue and frail HEENT: Reports systems reviewed and no addt'l complaints, except as documented Respiratory/Chest: Mild shortness of breath mainly on exertion. No wheezing. Prior history of smoking. CVS: No acute chest pressure or tightness. Gastrointestinal: Denies coffee ground emesis, hematemesis or vomiting. He had after chemotherapy as described in HPI Genitourinary: Denies burning urination or new urinary tract symptoms Musculoskeletal: Denies acute joint pain or limited range of motion. No acute injury Neurologic: Denies seizure-like symptoms. skin: No ulcer. 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 Reports systems reviewed and no addt'l complaints, except as documented Rest 14 ROS are negative except as mentioned in HPI Vital Signs Vital Signs Vital Signs: 01/09/25 13:13 01/09/25 13:58 01/09/25 13:58 Temperature 97.8 F 98.9 F Temperature Source Oral Oral Pulse Rate 106 H 86 Respiratory Rate 20 H 20 H Respiratory Effort Respiratory Depth Respiratory Pattern Blood Pressure 113/56 L 112/53 L Blood Pressure Mean 75 72 Pulse Ox 93 92 92 Oxygen Delivery Method Room Air Room Air Room Air 01/09/25 13:58 01/09/25 14:14 01/09/25 15:00 Temperature 98.6 F 98.6 F Temperature Source Oral Oral Pulse Rate 81 79 Respiratory Rate 21 H 18 Respiratory Effort Normal Non-Labored Respiratory Depth Normal Respiratory Pattern Normal Blood Pressure 96/54 L 96/53 L Blood Pressure Mean 68 67 Pulse Ox 90 90 Oxygen Delivery Method Room Air Room Air Room Air 01/09/25 16:00 01/09/25 16:34 Temperature 98.6 F 98.6 F Temperature Source Oral Pulse Rate 73 73 Respiratory Rate 18 18 Respiratory Effort Respiratory Depth Respiratory Pattern Blood Pressure 96/56 L 96/56 L Blood Pressure Mean 69 69 Pulse Ox 98 98 Oxygen Delivery Method Room Air Weight Weight: 160 lb Body Mass Index (BMI) 25.0 Physical Exam Narrative General: Alert, Oriented x3, Cooperative. BMI 25.7 kg/m?, recent loss of weight HEENT: Atraumatic, PERRLA, EOMI, Normocephalic. Oral: Oral mucosa dry no Gingival or Mucosal Lesions/ Ulcerations Neck: Supple, No JVD, Negative Carotid Bruits Chest wall/Lungs: Left upper chest Mediport. Air entry diminished in left lung base. Bilateral lower lobe crepitations. Mild hypoxia. Tachypnea present Cardiovascular: Regular rate and rhythm, Normal S1,S2, No M/G/R Abdomen: Bowel Sounds sluggish, Soft, Non Tender, Non-Distended : No dysuria. No renal angle tenderness. No suprapubic tenderness. Extremities: No edema, Capillary Refill Less than 3 Seconds Skin: No rashes, No breakdown Musculoskeletal: No Tenderness to Palpation of Joints or Extremities. ROM intact Neurological: Cranial nerves II-XII grossly intact, DTR 2+/4. No acute focal neurological deficit. Psych/Mental Status: Flat affect Results Lab / Micro Data 01/09/25 14:08 01/09/25 14:08 Labs: Laboratory Results - last 24 hr 01/09/25 14:08: WBC 13.7 H, RBC 2.19 L, Hgb 5.9 L*, Hct 19.8 L, MCV 90.4, MCH 26.9 L, MCHC 29.8 L, RDW Std Deviation 69.5 H, RDW Coeff of Micky 21.6 H, Plt Count 280, MPV 9.8, Immature Gran % (Auto) 1.200 H, Neut % (Auto) 87.1 H, Lymph % (Auto) 6.0 L, Boyle % (Auto) 5.3, Eos % (Auto) 0.1, Baso % (Auto) 0.3, Absolute Neuts (auto) 11.9 H, Absolute Lymphs (auto) 0.82 L, Nucleated RBC % 0, Differential Comment SCANNED, Platelet Estimate ADEQUATE, Polychromasia 1+, Hypochromasia 2+, Anisocytosis 2+, PT 16.4 H, INR 1.3, APTT 39.6 H, Sodium 133, Potassium 3.6, Chloride 96 L, Carbon Dioxide 26.0, Anion Gap 11, BUN 19, Creatinine 1.05, Estim Creat Clear Calc 55.08, Est GFR (MDRD) Non-Af 73, BUN/Creatinine Ratio 17.7, Glucose 177 H, Lactic Acid 1.4, Calcium 8.5, Total Bilirubin 0.93, AST 29, ALT 14, Alkaline Phosphatase 130 H, Total Protein 7.5, Albumin 2.4 L, Globulin 5.1 H, Albumin/Globulin Ratio 0.5 L Micro: Microbiology 01/09/25 15:20 Stool Stool Occult Blood (JANNIE) - Final 01/09/25 13:40 Mucosa - Nose SARS-CoV-2, Influenza & RSV (PCR) - Final Assessment & Plan Assessment/Plan (1) Anemia: (2) Pneumonia: (3) Colon cancer metastasized to multiple sites: PLAN: Plan This 75-year-old gentleman with downhill course after recent chemotherapy 2 weeks ago presented with worsening of shortness of breath/FERNANDEZ and productive cough since then. 1. Left lower lobe healthcare associated pneumonia: He has SIRS criteria with leukocytosis, tachycardia, tachypnea and mild hypoxia but did not have signs of endorgan dysfunction. Lactic acid normal. Therefore does not meet criteria as per SEP 3 definition but has positive SIRS due to pneumonia. IV fluid resuscitation 30 mL/kg body weight with broad-spectrum antibiotic vancomycin and Zosyn. Pneumonia workup ordered. Patient diarrhea has resolved therefore C. difficile and enteric pathogen panel not ordered. Creel Operator consulted. Triple PCR for SARS-CoV-2, flu and RSV are negative Chest x-ray initially reviewed and shows left lower lobe consolidation and meds. Chest x-ray done today in PCP office, was reported left lower lobe consolidation and pulmonary metastasis. Twelve-lead EKG shows NSR, PAC at 86 beats minute. QTc 480 ms. 2. Carcinoma colon, status post resection and 3 anastomosis in 2023 in [facility] with metastasis to liver and lungs: Patient was started on FOLFIRI chemotherapy 2 weeks ago. Outpatient labs were reviewed. Patient had severe leukopenia, WBC 1000, hemoglobin 7.8, platelet count 88 on 12/15 which has recovered since then. Platelet count in normal the patient is still has severe anemia and leukocytosis. Patient had severe diarrhea, loss of weight loss of appetite, nausea and vomiting and does not want further chemotherapy. His oncologist is Dr. Chris Moran. 3. Severe anemia most likely due to chemotherapy: Patient H&H 5.9/19%. His hemoglobin was 7.9 on 12/15 and 7.6 today, 01/09 as an outpatient. Monitor PRBC transfusion ordered. Check H&H after transfusion. Hold baby aspirin. 4. Hypertension: Currently blood pressure is on lower side. Patient has Mediport. If needed he is agreeable for vasopressors/Levophed 5. DM type II: Glucose is 177. PCP office record reviewed. A1c 5.8% mentioned on the note. Accu-Chek before meals and at bedtime with Humalog sliding scale coverage and hypoglycemia protocol. 6. GERD, obstructive sleep apnea and dyslipidemia: CPAP ordered. IV PPI. Stool for occult blood negative 7. DVT prophylaxis, high risk: Bilateral SCDs. Pharmacological prophylaxis continued because of severe anemia. Living will/advanced directive/end of life care: Patient does have living will or advanced directive. He does not remember who is power of attorney law clerk for health but his is next of kin after discussion of benefits/risks procedures involved with full code, DNR CC arrest and DNR CC, the patient opted for DNR CCA with mild tissue and but want vasopressors through Mediport if indicated. Patient doesn't want artificial life support including intubation, tube feed, ventilator and/chest compression, central venous catheter, and DC shock if needed Total time spent in [id number] encounter in discussion of advanced directive 17 minutes. Microbiology Past 72 Hours 01/09/25 15:20 Stool Stool Occult Blood (JANNIE) - Final 01/09/25 13:40 Mucosa - Nose SARS-CoV-2, Influenza & RSV (PCR) - Final Laboratory Results 01/09/25 14:08: WBC 13.7 H, RBC 2.19 L, Hgb 5.9 L*, Hct 19.8 L, MCV 90.4, MCH 26.9 L, MCHC 29.8 L, RDW Std Deviation 69.5 H, RDW Coeff of Micky 21.6 H, Plt Count 280, MPV 9.8, Immature Gran % (Auto) 1.200 H, Neut % (Auto) 87.1 H, Lymph % (Auto) 6.0 L, Boyle % (Auto) 5.3, Eos % (Auto) 0.1, Baso % (Auto) 0.3, Absolute Neuts (auto) 11.9 H, Absolute Lymphs (auto) 0.82 L, Nucleated RBC % 0, Differential Comment SCANNED, Platelet Estimate ADEQUATE, Polychromasia 1+, Hypochromasia 2+, Anisocytosis 2+, PT 16.4 H, INR 1.3, APTT 39.6 H, Sodium 133, Potassium 3.6, Chloride 96 L, Carbon Dioxide 26.0, Anion Gap 11, BUN 19, Creatinine 1.05, Estim Creat Clear Calc 55.08, Est GFR (MDRD) Non-Af 73, BUN/Creatinine Ratio 17.7, Glucose 177 H, Lactic Acid 1.4, Calcium 8.5, Magnesium 2.2, Total Bilirubin 0.93, AST 29, ALT 14, Alkaline Phosphatase 130 H, Total Creatine Kinase 24, Total Protein 7.5, Albumin 2.4 L, Globulin 5.1 H, Albumin/Globulin Ratio 0.5 L 01/09/25 17:30: MRSA (PCR) Pending Charges/Coding Visit Charges Inpatient E&M: 22679 Init Hosp L3 Procedures Hospitalists Procedures: 26431 Advncd Care Plan 30 Min
--- NOTE | 2025-01-09 17:28 | PCM.RX.CS ---
Consult Antibiotic Management Pharmacy has been consulted to manage selected antibiotic: Vancomycin Type of Intervention Type of Consult: New start Suspected Infection Suspected Infection: Sepsis and Pneumonia Prior Doses of Antibiotics Prior Doses of Antibiotics Received/Current Regimen: Vancomycin 1750 mg IV x 1 given 01/09/25 @ 1510 Labs Labs: Sodium 133 mmol/L (133-145) 01/09/25 14:08 Potassium 3.6 mmol/L (3.3-5.1) 01/09/25 14:08 Chloride 96 mmol/L (98-108) L 01/09/25 14:08 Carbon Dioxide 26.0 mmol/L (21.0-32.0) 01/09/25 14:08 Anion Gap 11 (5-15) 01/09/25 14:08 BUN 19 mg/dL (4-19) 01/09/25 14:08 Creatinine 1.05 mg/dL (0.70-1.20) 01/09/25 14:08 Est GFR (MDRD) Non-Af 73 (>60) 01/09/25 14:08 BUN/Creatinine Ratio 17.7 RATIO (10-20) 01/09/25 14:08 Glucose 177 mg/dL (70-99) H 01/09/25 14:08 Microbiology Microbiology: Microbiology 01/09/25 15:20 Stool Stool Occult Blood (JANNIE) - Final 01/09/25 13:40 Mucosa - Nose SARS-CoV-2, Influenza & RSV (PCR) - Final Dosing Weight Weight used for dosin kg Estimated Creatinine Clearance Estimated Creatinine Clearance: ~ 55 Goal Trough Goal Trough: 15-20 mcg/mL Pharmacy Plan for Drug Dosing Pharmacy Plan for Drug Dosing: Vancomycin 1750 mg IV x 1 followed by 750 mg Q12h Pharmacy Service will continue to monitor and adjust dosing as required. Follow-Up Labs Follow-Up Labs: Trough: Vancomycin Date/Time Labs Ordered Labs to be done on [date and time ordered]: 01/11/25 @ 2330
[2025-01-09 17:32] LABS: CPK Total, Creatine Kinase 24 U/L (24-195); Magnesium 2.2 mg/dL (1.5-2.2)
[2025-01-09] MEDS: 0.9% Normal Saline (1000mL) 1,000 ML 75 ML IV (20:14)
[2025-01-09] MEDS: Piperacil/Tazobactam 3.375 GM in 0.9% Normal Saline (50mL MB+) 50 ML IV (23:00)
--- OUTSIDE RECORDS SUMMARY | 2025-01-09 23:22 | XMS RPT_ITS | CCD ---
Author Organization [facility] Care Team Providers Care Wind Turb[employer] Blade Repair Technician Name Role Phone Marker, Bhavna Cruz Unavailable Unavailable Marker, Bhavna Cruz Unavailable Unavailable Unavailable Primary Care Provider UnavailDayami [place] Unavailable Unavailable Unavailable Bhupinder RODRIGUEZ, Dayami Torres Primary Care Provider Ms. AMBROSIO BAILEY Attending U navailable BHUPINDER, Dr. DAYAMI TORRES Primary Care Unav ailable ROE, Dr. DAYAMI TORRES Attending Unav ailable ROE, Dr. DAYAMI TORRES Primary Care Unav ailable ROE, Dr. DAYAMI TORRES Attending Unav ailable ROE, Dr. DAYAMI TORRES Primary Care Unav ailable Zumbar, Dr. Tamara Gilbert Referring Unav ailable Zumbar, Dr. Tamara Gilbert Attending Unav ailable ROE, Dr. DAYAMI TORRES Primary Care Unav ailable ROE, Dr. DAYAMI TORRES Primary Care Unav ailable ROE, Dr. DAYAMI TORRES Attending Unav ailable ROE, Dr. DAYAMI TORRES Attending Unav ailable ROE, Dr. DAYAMI TORRES Primary Care Unav ailable Zumbar, Dr. Tamara Gilbert Attending Unav ailable ROE, Dr. DAYAMI TORRES Primary Care Unav ailfareed Roe MD, Dayami Torres Primary Care Provider Bhupinder, Dr. Dayami Torres Primary Care Unav ailable Roe, Dr. Dayami Torres Attending Unav ailable Roe, Dr. Dayami Torres Referring Unav ailable Roe, Dr. Dayami Torres Primary Care Unav ailable Roe, Dr. Dayami Torres Attending Unav ailable Roe, Dr. Dayami Torres Referring Unav ailable Roe, Dr. Dayami Torres Primary Care Unav ailable Roe, Dr. Dayami Torres Attending Unav ailable Roe, Dr. Dayami Torres Referring Unav ailable Roe, Dr. Dayami Torres Primary Care Unav ailable Roe, Dr. Dayami Torres Attending Unav ailable Roe, Dr. Dayami Torres Referring Unav ailable Roe, Dr. Dayami Torres Primary Care Unav ailable Roe, Dr. Dayami Torres Attending Unav ailable Roe, Dr. Dayami Torres Referring Unav ailable Roe Dayami RODRIGUEZ Primary Care Provider [phone] Dayami Roe MD Unavailable Dayami Roe MD Primary Care Provider [phone] Bhupinder RODRIGUEZ, Dayami Stiles Unavailable BHUPINDER, DAYAMI TORRES Primary Care Unavaila ble DAMEON RAI Attending Unava ilable ROE, DAYAMI TORRES Primary Care Unavaila ble NGA WHITFIELD Attending Unavailable Dayami Roe MD Primary Care Provider Dayami Roe MD Primary Care Provider Tara To RN Unavailable Unavailable Unavailable Primary Care Provider Unavailaddison Roe MD, Dayami Torres Primary Care Provider DAYAMI ROE Primary Care Unavaila ble HAYDEN BALDERAS Attending Unavailable VOELHAYDEN REYNOLDS Attending Unavailable ROEDAYAMI Stiles Primary Care Unavaila ble HAYDEN BALDERAS Referring Unavailable ROEDAYAMI Stiles Primary Care Unavaila ble HAYDEN BALDERAS Referring Unavailable VOHAYDEN WASHINGTON Attending Unavailable ROEDAYAMI Stiles Primary Care Unavaila ble ARIAS FRANCO Attending Unavail able ENRIQUETA العراقي Admitting Unavailable BHUPINDER, DAYAMI TORRES Primary Care Unavaila ble YENI, TOMÁS Consulting Unavailaddison e HAYDEN BALDERAS Attending Unavailable ROEDAYAMI Stiles Primary Care Unavaila ble ROE, DAYAMI TORRES Primary Care Unavaila ble HAYDEN BALDERAS Attending Unavailable DAY, DAVID SCHULZ Attending Unavailable ROEDAYAMI Stiles Referring Unavaila ble ROE, DAYAMI TORRES Primary Care Unavaila ble AUSTEN HALL Attending Unavailab le ROE, DAYAMI TORRES Primary Care Unavaila ble ROE, DAYAMI TORRES Primary Care Unavaila ble ECKLMIRLANDENELI Attending Unavailable ROE, DAYAMI Stiles Attending Unavailable ROE, DAYAMI Stiles Referring Unavailable ROE, DAYAMI Stiles Primary Care Unavailable ROE, DAYAMI Stiles Attending Unavailable ROE, DAYAMI Stiles Primary Care Unavailable ROE, DAYAMI Stiles Attending Unavailable ROE, DAYAMI Stiles Primary Care Unavailable ROE, DAYAMI Stiles Attending Unavailable ROE, DAYAMI Stiles Referring Unavailable ROE, DAYAMI Stiles Primary Care Unavailable Yong RN, Jocelin Unavailable Unavailable Aarti Bar DO Unavailable ROE, DAYAMI Stiles Primary Care Unavailable ROE, DAYAMI Stiles Primary Care Unavailable ROE, DAYAMI Stiles Primary Care Unavailable ROE, DAYAMI Stiles Primary Care Unavailable Dayami Puri MD Primary Care Provider Prosper Narvaez Unavailable [phone] Dayami Roe MD Primary Care Provider Podlogar MEDICAL REPRESENTATIVE.Mady IFNN Unavailable Jai MEDICAL REPRESENTATIVE.Brunilda FINN Unavailable Amparo Potts Unavailable Unavailabl e Jai MEDICAL REPRESENTATIVE.Brunilda FINN Unavailable Dr. Chaitanya Roe MD Primary Care Provider [phone] Dr. Aarti Bar DO Attending Provider Dipika DIAMOND, Dr. Perez Referring Provider Aarti Bar Attending Unavailable Aarti Bar Referring Unavailable Chaitanya Roe Primary Care Unavailable Bhupinder, Chaitanya Primary Care Unavailable Genaro Pressley Attending Unavailable Jai MEDICAL REPRESENTATIVE.Brunilda FINN Unavailable DAYAMI PURI Primary Care Unavailab DAYAMI Hines Primary Care Unavailab le AARTI BAR Referring Unavailable DAYAMI PURI Primary Care Unavailab le [facility] Dinesh Primary Care Unavailab rosa SILVA CASHE Attending Unavailabl e DAISY PURIER Dinesh Primary Care Unavailab le MASCI, AARTI Mckenna Referring Unavailable DAISY PURI Dinesh Primary Care Unavailab le MASCI, AARTI Mckenna Referring Unavailable DAISY PURIER Dinesh Primary Care Unavailab le [facility] Dinesh Primary Care Unavailab le MASCI, AARTI Mckenna Referring Unavailable MASCAARTI Jama Attending Unavailable DAYAMI PURI Primary Care Unavailab le [facility] Dinesh Primary Care Unavailab le MASCI, AARTI Mckenna Referring Unavailable DAISY PURIER Dinesh Primary Care Unavailab le MASCI, AARTI Andres Referring Unavailable DAISY PURIER Dinesh Primary Care Unavailab le MASCI, AARTI Andres Referring Unavailable DAISY PURIER Dinesh Primary Care Unavailab le MASCI, AARTI Andres Referring Unavailable MASCIAARTI Attending Unavailable DAISY PURIER Dinesh Primary Care Unavailab le [facility] Dinesh Primary Care Unavailab le [place] [place] Dinesh Primary Care Unavailab le [facility] Dinesh Primary Care Unavailab le MASCI, AARTI Andres Referring Unavailable DAYAMI ROE Primary Care Unavaila ble ROEDAYAMI Primary Care Unavaila ble MASCI, AARTI Andres Referring Unavailable DAYAMI PURI Primary Care Unavailab le MASCI, AARTI Andres Referring Unavailable RHONDA OWENS Attending Unavailable DAISY PURIER Dinesh Primary Care Unavailab le MASCI, AARTI Andres Referring Unavailable DAISY PURIER Dinesh Primary Care Unavailab le MASCI, AARTI Mckenna Referring Unavailable DAYAMI PUIR Primary Care Unavailab le MASCI, AARTI Mckenna Referring Unavailable [place]HI [place] Dinesh Primary Care Unavailab le [facility] Dinesh Primary Care Unavailab le [facility] Dinesh Primary Care Unavailab le MASCI, AARTI Andres Referring Unavailable DAISY PURIER Dinesh Primary Care Unavailab le MASCI, AARTI Andres Referring Unavailable DAISY PURIER Dinesh Primary Care Unavailab le MASCI, AARTI Andres Referring Unavailable DAISY PURIER Dinesh Primary Care Unavailab le MASCI, AARTI Mckenna Referring Unavailable DAISY PURIER Dinesh Primary Care Unavailab le MASCI, AARTI Andres Attending Unavailable DAYAMI PURI Primary Care Unavailab le MASCI, AARTI Andres Referring Unavailable ROE, CHRISTOPHER MELISSA Primary Care Unavaila ble MASCAARTI Jama Referring Unavailable DAISY PURIER Dinesh Primary Care Unavailab le MASCIAARTI Referring Unavailable GETACHEW PURIOPHER Dinesh Primary Care Unavailab le SELF Referring Unavailable JANNET BRADY Attending Unavailabl e AARTI BAR Referring Unavailable GETACHEW PURIOPHER B Primary Care Unavailab le GETACHEW PURIOPHER B Primary Care Unavailab le MASCAARTI Jama Referring Unavailable DAISY PURIER Dinesh Primary Care Unavailab le MASCIAARTI Referring Unavailable AARTI BAR Referring Unavailable GETACHEW PURIOPHER B Primary Care Unavailab le GETACHEW PURIOPHER B Primary Care Unavailab le MASCAARTI Jama Referring Unavailable DAYAMI ROE Primary Care Unavaila ble DAISY PURIER Dinesh Attending Unavailab le DAISY PURIER B Primary Care Unavailab le KHUSHI, GETACHEWOPHER B Primary Care Unavailab le KHUSHI, GETACHEWOPHER B Primary Care Unavailab le OWENS, RHONDA Attending Unavailable DAISY PURIER B Primary Care Unavailab le MASCAARTI Jama Referring Unavailable DAISY PURIER B Primary Care Unavailab le OWENS, RHONDA Referring Unavailable DAISY PURIER B Primary Care Unavailab le OWENS, RHONDA Referring Unavailable DAISY PURIER B Primary Care Unavailab le OWENS, RHONDA Referring Unavailable DAISY PURIER B Primary Care Unavailab le KHUSHI, GETACHEWOPHER B Primary Care Unavailab le KHUSHI, DAISYER B Primary Care Unavailab le MASCAARTI Jama Referring Unavailable DAISY PURIER B Primary Care Unavailab le MASCIAARTI Attending Unavailable AARTI BAR Referring Unavailable GETACHEW PURIOPHER B Primary Care Unavailab le MASCAARTI Jama Referring Unavailable GETACHEW PURIOPHER B Primary Care Unavailab le AARTI BAR Referring Unavailable GETACHEW PURIOPHER B Primary Care Unavailab le AARTI BAR Attending Unavailable AARTI BAR Referring Unavailable GETACHEW PURIOPHER B Primary Care Unavailab le MASCIAARTI Referring Unavailable GETACHEW PURIOPHER B Primary Care Unavailab le GETACHEW PURIOPHER B Primary Care Unavailab le MASCAARTI Jama Attending Unavailable DAISY PURIER B Primary Care Unavailab le DAYAMI PURI Primary Care Unavailab le MASCI, AARTI Andres Referring Unavailable MASCI, AARTI Andres Referring Unavailable DAYAMI PURI Primary Care Unavailab le MASCI, AARTI Andres Referring Unavailable DAYAMI PURI Primary Care Unavailab le ROE, DAYAMI TORRES Primary Care Unavaila ble MASCI, AARTI A Attending Unavailable DAYAMI ROE Primary Care Unavaila ble ROE, DAYAMI TORRES Primary Care Unavaila ble ROE, [place] MELISSA Primary Care Unavaila ble OWENS, RHONDA Attending Unavailable ROE, DAYAMI TORRES Primary Care Unavaila ble MASCI, AARTI A Referring Unavailable DAYAMI PURI Attending Unavailab le DAYAMI PURI Primary Care Unavailab le DAYAMI PURI Primary Care Unavailab le MASCI, AARTI Andres Referring Unavailable BHUPINDER, DAYAMI TORRES Primary Care Unavaila ble ROE, DAYAMI TORRES Primary Care Unavaila ble MASCI, AARTI Andres Attending Unavailable DAYAMI ROE Primary Care Unavaila ble MASCI, AARTI Andres Referring Unavailable DAYAMI ROE Primary Care Unavaila ble [facility] Montiel Primary Care Unavailab le KHUSHI, DAYAMI Montiel Primary Care Unavailab le MASCI, AARTI Andres Attending Unavailable DAYAMI PURI Primary Care Unavailab le DAYAMI PURI Primary Care Unavailab le MASCI, AARTI Andres Referring Unavailable DAYAMI PURI Primary Care Unavailab le [facility] Primary Care Unavailab le MASCI, AARTI Andres Referring Unavailable DAYAMI PURI Primary Care Unavailab le ROE, DAYAMI TRORES Primary Care Unavaila ble ROE, DAYAMI TORRES Primary Care Unavaila ble [facility] Primary Care Unavailab le MASCI, AARTI A Referring Unavailable MASCI, AARTI Andres Referring Unavailable DAYAMI PURI Primary Care Unavailab le MASCI, AARTI Andres Referring Unavailable DAYAMI PURI Primary Care Unavailab le MASCI, AARTI Andres Referring Unavailable DAYAMI PURI Primary Care Unavailab le MASCI, AARTI Andres Attending Unavailable DIPIKA, AARTI A Referring Unavailable DAYAMI PURI Primary Care Unavailab le MASCI, AARTI Andres Referring Unavailable DAYAMI PURI Primary Care Unavailab le MASCI, AARTI Andres Referring Unavailable DAYAMI PURI Primary Care Unavailab DAYAMI Manzano Primary Care Unavaila RHONDA Landa Attending Unavailable LUISITO HASSAN Attending Unavailaddison e DAYAMI PURI Primary Care Unavailab DAYAMI Hines Primary Care Unavailab le MASCEvita, AARTI Mckenna Referring Unavailable DAYAMI PURI Primary Care Unavailab le MASCI, AARTI Mckenna Referring Unavailable JOHN MCCRAY Attending Unavailable Khushi RODRIGUEZ, Dr. Tavares Primary Care Provider Rosa DIAMOND, Dr. Mc Emergency Provider Jocelyn RODRIGUEZ, Dr. Manley Other Provider Unavailaddison Levy MD, Dr. Dowd Other Provider Papito RODRIGUEZ, Dr. Gagnon Other Provider Elliot RODRIGUEZ, Dr. Sanon Other Provider [phone] Anastacio DIAMOND, Dr. Caro Other Provider Carly RODRIGUEZ, Dr. Zurita Other Provider [phone] Dave DIAMOND, Dr. Morgan Other Provider Neeru RODRIGUEZ, Dr. Wright Other Provider Dr. Richy Sales DO Other Provider Dr. Angela Ann MD Other Provider [phone] Darin Younger MD Other Provider Nargis RODRIGUEZ, Dr. Burnett Other Provider Dr. Felipa Christianson MD Other Provider Debbie RODRIGUEZ, Dr. Polk Other Provider Dony RODRIGUEZ, Dr. Hdez Other Provider Zander RODRIGUEZ, Dr. Joel Other Provider [phone] Phillip RODRIGUEZ, Dr. Lorenzo Other Provider Lucas RODRIGUEZ, Dr. Saunders Other Provider uCba RODRIGUEZ, Dr. Hyde Other Provider Mana RODRIGUEZ, Dr. Guerrero Other Provider Brian RODRIGUEZ, Dr. Melissa Strickland Other Provider Fermin RODRIGUEZ, Dr. Crowell Other Provider Zhao RODRIGUEZ, Dr. Bernard Other Provider Samuel RODRIGUEZ, Dr. Mattson Admit Provider Samuel RODRIGUEZ, Dr. Mattson Attending Provider Allergies Allergy Classification Reported Allergen(s) Allergy Type Date of Onset Reaction(s) Facility Angiotensin Converting Enzyme (LIZZETTE) Inhibitors (3 sources) Lisinopril Drug Allergy 4 Swelling [facility] metFORMIN (5 sources) metFORMIN; Translations: [metformin] Drug Allergy 4 GI Upset [facility] Work Phone: (20 sources) metFORMIN; Translations: [metformin] Drug Allergy 2 GI Intolerance, Diarrhea, Nausea Only, GI Upset [facility] (20 sources) Lisinopril; Translations: [LISINOPRIL] Drug Allergy 4 Angioedema, Swelling [facility] (1 source) Lisinopril Drug Allergy 5 [facility] (1 source) metFORMIN Drug Allergy 5 [facility] Medications Current Medications Medication Drug Class(es) Dates Sig (Normalized) Sig (Original) acyclovir 400 mg oral tablet (10 sources) Herpesvirus Nucleoside Analog DNA Polymerase Inhibitor, Herpes Simplex Virus Nucleoside Analog DNA Polymerase Inhibitor, Herpes Zoster Virus Nucleoside Analog DNA Polymerase Inhibitor Start: 12-15-2024 take 1 tablet by mouth twice daily acyclovir (ZOVIRAX) 400 mg tablet Take 1 tablet by mouth two times a day. 60 tablet 2 12/15/2024 Active amoxicillin 875 mg / clavulanate 125 mg oral tablet (3 sources) Penicillin-class Antibacterial Start: 01-09-2025 End: 01-16-2025 take 1 tablet by mouth every twelve hours amoxicillin-clav ulanate potassium (AUGMENTIN) 875-125 mg per tablet Take 1 tablet by mouth every 12 hours for 7 days. 14 tablet 01/09/2025 01/16/2025 Active Start: 01-09-2025 Amoxicillin-Po t Clavulanate 875-125 mg tablet Active 1 {tbl} PO TWICE A DAY January 09, 2025 12:00am aspirin 81 mg delayed release oral tablet (20 sources) Platelet Aggregation Inhibitor, Nonsteroidal Anti-inflammatory Drug Start: 06-16-2019 take 1 tablet by mouth once daily Aspirin (Aspir-81) 81 mg Tablet,Delayed Release (Dr/Ec) Active 81 mg PO DAILY January 07, 2022 12:00am Start: 06-16-2019 Adult Aspirin Regimen 81 MG Oral Tablet Delayed Release Quantity: 0 Refills: 0 Ordered: 16-Jun-2019 DO Start : 16-Jun-2019 Active aspirin 500 mg / caffeine 32.5 mg oral tablet (8 sources) Platelet Aggregation Inhibitor, Nonsteroidal Anti-inflammatory Drug, Central Nervous System Stimulant, Methylxanthine aspirin-caffeine ([employer]) 500-32.5 mg Tab Take 1 tablet by mouth as needed . 0 Active atropine sulfate 0.025 mg / diphenoxylate hydrochloride 2.5 mg oral tablet (7 sources) Anticholinergic, Cholinergic Muscarinic Antagonist, Antidiarrheal Start: 2024 End: 2024 take 2 tablets by mouth every six hours as needed for diarrhea diphenoxylate-atropine (LOMOTIL) 2.5-0.025 mg per tablet Indications: 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) , Chemotherapy induced diarrhea Take 2 tablets by mouth every 6 hours as needed for diarrhea for up to 7 days. 56 tablet 12/16/2024 Active azelastine hydrochloride 0.137 mg/actuat metered dose nasal spray (20 sources) Histamine-1 Receptor Antagonist Start: 2023 Start: 10-15-2023 azelastine ( TELIN) 137 mcg (0.1 %) nasal spray 2 (two) sprays by Each Nare route 2 (two) times a day . 0 10/15/2023 Active azithromycin 250 mg oral tablet (3 sources) Macrolide Antimicrobial Start: 01-09-2025 End: 01-09-2025 take 2 tablets by mouth once, then take 1 tablet by mouth once daily azithromycin (ZITHROMAX Z-AYAH) 250 mg tablet Take 2 tablets by mouth one time only for 1 dose. THEN 1 TAB DAILY FOR 4 DAYS. 6 tablet 01/09/2025 01/09/2025 Active Start: 01-09-2025 Azithromycin 2 50 mg tablet Active 250 mg PO DIRECTED January 09, 2025 12:00am codeine phosphate 2 mg/ml / guaiFENesin 20 mg/ml oral solution (20 sources) Opioid Agonist Start: 06-28-2024 End: 07-05-2024 take 10 mL by mouth three times daily as needed for cough codeine-guaiFENesin (ROBITUSSIN AC) 10-100 mg/5 mL syrup Indications: Lower respiratory infection (e.g., bronchitis, pneumonia, pneumonitis, pulmonitis) Take 10 mL by mouth three times a day as needed for cough for up to 7 days. 210 mL 06/28/2024 07/05/2024 Active take 15 mL by mouth every six hours as needed Codeine-guaiFENesin 6.3-100 mg/5 mL liqd Take 15 mL by mouth every 6 hours as needed. Active docusate sodium 50 mg / anselmo osides, care home 8.6 mg oral tablet (7 sources) Start: 10-29-2023 End: 11-28-2023 Start: 10-23-2023 End: 11-28-2023 take 1 tablet by mouth twice daily as needed for constipation senna-docusate (SENNA-S) 8.6-50 mg Take 1 (one) tablet by mouth 2 (two) times a day As needed for constipation . 60 tablet 0 10/29/2023 11/28/2023 Active doxycycline hyclate 100 mg oral capsule (4 sources) Tetracycline-class Drug Start: 06-28-2024 End: 07-08-2024 take 1 capsule by mouth twice daily doxycycline hyclate (VIBRAMYCIN) 100 mg capsule Indications: Lower respiratory infection (e.g., bronchitis, pneumonia, pneumonitis, pulmonitis) Take 1 capsule (100 mg) by mouth two times a day for 10 days. 20 capsule 06/28/2024 07/08/2024 Active enteric contrast (will be provided with radiology test) (20 sources) Start: 10-12-2024 enteric contrast (will be provided with radiology test) Indications: Cancer of cecum (HCC) , 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) , 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) For CT ABD/PEL W IVCON Routine order Administer, As Directed One Time Only, via Oral, Rectal, both Oral and Rectal, Enteric Tube, Stoma or Indwelling Catheter, Enteric Contrast as designated per enteric contrast guidelines 1 each 10/12/2024 Active Start: 07-20-2024 End: 09-14-2024 enteric contrast (will be pr ovided with radiology test) Indications: Cancer of cecum (HCC) , 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) , 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) For CT ABD/PEL W IVCON Routine order Administer, As Directed One Time Only, via Oral, Rectal, both Oral and Rectal, Enteric Tube, Stoma or Indwelling Catheter, Enteric Contrast as designated per enteric contrast guidelines 1 Each 07/20/2024 09/14/2024 Discontinued (Course of therapy completed) Start: 07-20-[address] (will be provided with radiology test) Indications: Cancer of cecum (HCC) , 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) , 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) For CT ABD/PEL W IVCON Routine order Administer, As Directed One Time Only, via Oral, Rectal, both Oral and Rectal, Enteric Tube, Stoma or Indwelling Catheter, Enteric Contrast as designated per enteric contrast guidelines 1 Each 07/20/2024 Active Start: 03-01-2024 End: 03-02-2024 enteric contrast (will be pr ovided with radiology test) Indications: Cancer of cecum (HCC) , 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) For CT CHESTABD/PEL W IVCON Routine order Administer, As Directed One Time Only, via Oral, Rectal, both Oral and Rectal, Enteric Tube, Stoma or Indwelling Catheter, Enteric Contrast as designated per enteric contrast guidelines 1 Each 03/01/2024 03/02/2024 Active hydroCHLOROthiazide 12.5 mg oral tablet (20 sources) Thiazide Diuretic Start: 11-13-2023 End: 01-09-2025 take 1 capsule by mouth once daily Hydrochlorothiazide 12.5 mg capsule Discontinued 12.5 mg PO DAILY February 01, 2024 12:00am January 09, 2025 1:25pm Start: 10-27-2023 End: 11-14-2024 take 1 tablet by mouth once daily hydroCHLOROthiazide 12.5 mg tablet Take 1 tablet by mouth once daily. 90 tablet 2 11/14/2024 Active 3 ml insulin glargine 100 unt/ml pen injector (4 sources) Insulin Analog Start: 11-24-2024 Insulin Glargi ne (Lantus Solostar U-100 Insulin) 100 unit/mL (3 mL) insulin pen Active 20 U SC DAILY November 24, 2024 12:00am Start: 01-01-2024 insulin glargi ne (Lantus) 100 unit/mL (3 mL) pen Indications: Type 2 diabetes mellitus without complication, without long-term current use of insulin (Multi) Use 20 units of insulin a day if sugars are over 200 in AM before breakfast 3 each 01/01/2024 Active Start: 10-28-2023 End: 10-28-2023 5 Units, Subcutaneous, Once, On Thu10/28/23 at 1500, For 1 dose, If patient NPO and BG LESS than 100 before procedure, administer half (rounded up to nearest unit) of the glargine insulin (LANTUS) dose; if BG is GREATER than 100, administer the full dose unless otherwise instructed by ordering physician Do not mix with other insulins in a syringe. Do NOT hold basal insulin without notifying physician insulin glargine,hum.rec.anl og (LANTUS SOLOSTAR U-100 INSULIN SUBCUTANEOUS) (20 sources) insulin glargine ,hum.rec.anlog (LANTUS SOLOSTAR U-100 INSULIN SUBCUTANEOUS) Inject 20 Units subcutaneously as directed. 20 units once daily if sugar greater than 200 Active iv contrast (will be provide d with radiology test) (20 sources) Start: 10-12-2024 iv contrast (will be provide d with radiology test) Indications: Cancer of cecum (HCC) , 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) , 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) CT Chest W -Inject, intravenously, once for 1 dose.No IV access, insert saline lock prior to the beginning of sedation, infusion, injection of imaging exam. Discontinue saline lock post exam. If Pt. has a central line or IVAD, may access for administration according to line specific nursing protocol. Once exam is complete flush line and de-access according to line specific nursing protocol in the CT contrast administration guidelines link. 1 each 10/12/2024 Active Start: 10-12-2024 iv contrast (w ill be provided with radiology test) Indications: Cancer of cecum (HCC) , 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) , 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) CT ABD/PEL -Inject, intravenously, once for 1 dose.No IV access, insert saline lock prior to the beginning of sedation, infusion, injection of imaging exam. Discontinue saline lock post exam. If Pt. has a central line or IVAD, may access for administration according to line specific nursing protocol. Once exam is complete flush line and de-access according to line specific nursing protocol in the CT contrast administration guidelines link. 1 each 10/12/2024 Active Start: 07-20-2024 End: 09-14-2024 iv contrast (will be provide d with radiology test) Indications: Cancer of cecum (HCC) , 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) , 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) CT Chest W -Inject, intravenously, once for 1 dose.No IV access, insert saline lock prior to the beginning of sedation, infusion, injection of imaging exam. Discontinue saline lock post exam. If Pt. has a central line or IVAD, may access for administration according to line specific nursing protocol. Once exam is complete flush line and de-access according to line specific nursing protocol in the CT contrast administration guidelines link. 1 Each 07/20/2024 09/14/2024 Discontinued (Course of therapy completed) Start: 07-20-2024 End: 09-14-2024 iv contrast (will be provide d with radiology test) Indications: Cancer of cecum (HCC) , 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) , 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) CT ABD/PEL -Inject, intravenously, once for 1 dose.No IV access, insert saline lock prior to the beginning of sedation, infusion, injection of imaging exam. Discontinue saline lock post exam. If Pt. has a central line or IVAD, may access for administration according to line specific nursing protocol. Once exam is complete flush line and de-access according to line specific nursing protocol in the CT contrast administration guidelines link. 1 Each 07/20/2024 09/14/2024 Discontinued (Course of therapy completed) Start: 07-20-2024 iv contrast (w ill be provided with radiology test) Indications: Cancer of cecum (HCC) , 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) , 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) CT Chest W -Inject, intravenously, once for 1 dose.No IV access, insert saline lock prior to the beginning of sedation, infusion, injection of imaging exam. Discontinue saline lock post exam. If Pt. has a central line or IVAD, may access for administration according to line specific nursing protocol. Once exam is complete flush line and de-access according to line specific nursing protocol in the CT contrast administration guidelines link. 1 Each 07/20/2024 Active Start: 07-20-2024 iv contrast (w ill be provided with radiology test) Indications: Cancer of cecum (HCC) , 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) , 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) CT ABD/PEL -Inject, intravenously, once for 1 dose.No IV access, insert saline lock prior to the beginning of sedation, infusion, injection of imaging exam. Discontinue saline lock post exam. If Pt. has a central line or IVAD, may access for administration according to line specific nursing protocol. Once exam is complete flush line and de-access according to line specific nursing protocol in the CT contrast administration guidelines link. 1 Each 07/20/2024 Active Start: 03-01-2024 End: 03-02-2024 iv contrast (will be provide d with radiology test) Indications: Cancer of cecum (HCC) , 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) CT Chest ABD/PEL-Inject, intravenously, once for 1 dose.No IV access, insert saline lock prior to the beginning of sedation, infusion, injection of imaging exam. Discontinue saline lock post exam. If Pt. has a central line or IVAD, may access for administration according to line specific nursing protocol. Once exam is complete flush line and de-access according to line specific nursing protocol in the CT contrast administration guidelines link. 1 Each 03/01/2024 03/02/2024 Active Lactobacillus acidophilus (20 sources) take 1 capsule by mouth once daily Lactobacillus acidophilus (ACIDOPHILUS) cap Take 1 capsule by mouth once daily. Active levoFLOXacin 750 mg oral tablet (6 sources) Quinolone Antimicrobial Start: 12-01-19 25 End: 12-08-19 25 take 1 tablet by mouth once daily levoFLOXacin (LEVAQUIN) 750 mg tablet Take 1 tablet by mouth once daily for 7 days. 7 tablet 11/30/2024 12/07/2024 Active magnesium chloride 598 mg delayed release oral tablet (20 sources) Start: 01-10-20 Magnesium Chloride [Magnesium Chloride 71.5 Mg (Magnesium Chloride) Tablet,Delayed Release] (Magnesium Chloride 71.5 Mg (Magnesium Chloride) ) 71.5 mg tablet,delayed release (DR/EC) Active 71.5 mg PO TWICE A DAY January 09, 2025 12:00am Start: 01-19-2024 End: 03-08-2024 take 1 tablet by mouth twice daily Magnesium Chloride (SLOW-MAG) 71.5 mg TbEC Take 1 tablet by mouth two times a day. 60 tablet 5 01/19/2024 03/08/2024 Discontinued (Course of therapy completed) take 71.5 mg by mout h once daily Magnesium Chloride (SLOW-MAG) 71.5 mg TbEC Take 71.5 mg by mouth once daily. Active meloxicam 15 mg oral tablet (17 sources) Nonsteroidal Anti-inflammatory Drug Start: 03-25-2022 End: 07-03-2023 take 1 tablet by mouth once daily meloxicam (Mobic) 15 mg tablet Take 1 tablet (15 mg) by mouth once daily. 0 03/25/2022 07/03/2023 Discontinued (Therapy completed) 24 hr metoprolol succinate 25 mg extended release oral tablet (20 sources) beta-Adrenergic Rinku Start: 01-22-2022 End: 12-31-2023 take 1 tablet by mouth once daily metoprolol succinate XL (Toprol-XL) 25 mg 24 hr tablet Indications: Hypertension, essential, benign Take 1 tablet (25 mg) by mouth once daily. 90 tablet 3 12/31/2022 07/03/2023 Discontinued (Therapy completed) Start: 01-22-2022 End: 05-18-2023 take 1 tablet by mouth every twenty-four hours metoprolol succinate (TOPROL-XL) 25 MG 24 hr tablet Take 1 Unspecified by mouth . 0 01/22/2022 05/18/2023 Discontinued (Therapy completed) mirtazapine 15 mg oral tablet (3 sources) Start: 01-09-2025 End: 04-09-2025 take 1 tablet by mouth once daily at bedtime mirtazapine (REMERON) 15 mg tablet Take 1 tablet by mouth daily at bedtime. 30 tablet 2 01/09/2025 04/09/2025 Active mometasone furoate 0.05 mg/actuat metered dose nasal spray (20 sources) Corticosteroid Start: 02-01-2024 Mometasone 50 mcg/actuation spray,non-aerosol Active 2 NMA INTRANASAL DAILY February 01, 2024 12:00am Start: 11-26-2023 mometasone (NA SONEX) 50 mcg/actuation nasal spray Use 2 Sprays in the nose once daily. 11/26/2023 Active naloxone hydrochloride 40 mg/ml nasal spray (7 sources) Opioid Antagonist Start: 10-29-2023 naloxone (NA RCAN) 4 mg/actuation Dilkon Administer 1 spray into one nostril for known or suspected opioid overdose. If patient worsens or does not respond, may repeat in 2-3 minutes. . 2 each 0 10/29/2023 Active Start: 10-29-2023 End: 10-29-2023 End: 11-13-2023 naloxone (Narcan) 4 mg/0.1 m L nasal spray Administer 1 spray (4 mg) into affected nostril(s) if needed for opioid reversal. May repeat every 2-3 minutes if needed, alternating nostrils, until medical assistance becomes available. 11/13/2023 Discontinued (Therapy completed) nortriptyline 10 mg oral capsule (2 sources) Tricyclic Antidepressant Start: 12-31-2022 End: 07-03-2023 take 1 capsule by mouth once daily at bedtime nortriptyline (Pamelor) 10 mg capsule Indications: Primary insomnia Take 1 capsule (10 mg) by mouth once daily at bedtime. 30 capsule 11 12/31/2022 07/03/2023 Discontinued (Therapy completed) omeprazole 40 mg delayed release oral capsule (20 sources) Proton Pump Inhibitor Start: 06-16-2019 End: 07-08-2025 take 1 capsule by mouth once daily omeprazole (PRILOSEC) 40 mg capsule Take 1 capsule by mouth once daily. 90 capsule 1 01/09/2025 07/08/2025 Active ondansetron 4 mg disintegrating oral tablet (20 sources) Serotonin-3 Receptor Antagonist Start: 12-20-2024 End: 12-27-2024 take 1 tablet by mouth every six hours as needed ondansetron orally disintegrating (ZOFRAN ODT) 4 mg disintegrating tablet Take 1 tablet by mouth every 6 hours as needed for nausea/vomiting for up to 7 days. 20 tablet 12/20/2024 12/27/2024 Active Start: 12-18-2023 take 1 tablet by esther th every eight hours as needed for nausea ondansetron (ZOFRAN) 8 mg tablet Indications: cancer chemotherapy-induced nausea and vomiting Take 1 tablet by mouth every 8 hours as needed for nausea/vomiting. 30 tablet 2 12/18/2023 Active Start: 10-21-2023 End: 10-21-2023 ondansetron (ZOFRAN) injecti on Start: 10-19-2023 End: 10-29-2023 take 4 mg intravenously every six hours as needed for nausea and vomiting 4 mg, Intravenous, Every 6 hours PRN, nausea, vomiting, Starting on 10/19/23 at 1057 oxyCODONE hydrochloride 5 mg oral tablet (5 sources) Opioid Agonist Start: 10-29-2023 End: 11-13-2023 Start: 10-23-2023 End: 10-29-2023 take 5-10 mg by mouth every four hours as needed 5-10 mg, Oral, Every 4 hours PRN (may repeat), moderate to severe pain, Starting on Thu10/23/23 at 1510, Initiate with 5 mg oral every 4 hours prn moderate to severe pain. For unrelieved pain, may repeat 5 mg within 60 minutes of initial dose. If pain is RELIEVED after repeat dose, change to 10 mg every 4 hours prn moderate to severe pain. If pain is UNrelieved after repeat dose, or patient requires dose reduction, call physician. pioglitazone 30 mg oral tablet (20 sources) Peroxisome Proliferator Receptor alpha Agonist, Peroxisome Proliferator Receptor gamma Agonist, Thiazolidinedione Start: 06-16-2019 End: 04-07-2030 take 1 tablet by mouth once daily pioglitazone (ACTOS) 30 mg tablet Take 1 tablet by mouth once daily. 90 tablet 3 11/08/2024 04/07/2030 Active potassium chloride 10 meq extended release oral tablet (20 sources) Start: 01-19-2024 End: 07-20-2024 take 1 tablet by mouth twice daily potassium chloride (K-TAB) 10 mEq tablet Take 1 tablet by mouth two times a day. 180 tablet 3 07/20/2024 Active Start: 01-07-2022 End: 01-09-2025 take 1 capsule by mouth once daily Potassium Chloride 10 mEq Capsule, Extended Release Discontinued 10 meq PO DAILY January 07, 2022 12:00am January 09, 2025 1:26pm Start: 06-16-2019 End: 11-15-2028 take 1 tablet by mouth once daily potassium chloride CR 10 mEq ER tablet Indications: Hypertension, essential, benign Take 1 tablet (10 mEq) by mouth once daily. 30 tablet 61 10/30/2023 11/15/2028 Active potassium phosphate 155 mg / sodium phosphate, dibasic 852 mg / sodium phosphate, monobasic 130 mg oral tablet (12 sources) Start: 12-05-2024 take 1 tablet by mouth twice daily phosphorus (N-JJBX-YPWGLPE) 250 mg tablet Take 1 tablet by mouth two times a day. 14 tablet 12/05/2024 Active pregabalin 25 mg oral capsule (11 sources) Start: 04-14-2022 End: 07-03-2023 take 1 capsule by mouth once daily at bedtime pregabalin (Lyrica) 25 mg capsule Take 1 capsule (25 mg) by mouth once daily at bedtime. 0 04/14/2022 07/03/2023 Discontinued (Therapy completed) prochlorperazine 10 mg oral tablet (20 sources) Phenothiazine Start: 12-18-2023 take 1 tablet by mouth every six hours as needed prochlorperazine (COMPAZINE) 10 mg tablet Take 1 tablet by mouth every 6 hours as needed. 30 tablet 2 12/18/2023 Active rosuvastatin calcium 10 mg oral tablet (20 sources) HMG-CoA Reductase Inhibitor Start: 06-17-2019 End: 07-08-2025 take 1 tablet by mouth once daily rosuvastatin (CRESTOR) 10 mg tablet Take 1 tablet by mouth once daily. 90 tablet 1 01/09/2025 07/08/2025 Active zolpidem tartrate 10 mg oral tablet (20 sources) gamma-Aminobutyric Acid-ergic Agonist Start: 02-01-2024 take 1 tablet by mouth at bedtime as needed for sleep Zolpidem 10 mg tablet Active 10 mg PO AT BEDTIME NEEDED as needed for sleep February 01, 2024 12:00am Start: 10-21-2023 End: 10-29-2023 take 10 mg by mouth once daily 10 mg, Oral, Nightly, F irst dose on Thu10/21/23 at 2100 Start: 10-14-2023 take 1 tablet by mouth once da renée zolpidem (AMBIEN) 10 mg tablet Take 1 (one) tablet (10 mg total) by mouth nightly . 0 10/14/2023 Active Start: 07-03-2023 End: 12-30-2023 take 2 tablets by mouth every twenty-four hours as needed zolpidem (AMBIEN) 5 mg tablet Take 10 mg by mouth at bedtime as needed. 07/03/2023 Active Start: 07-03-2023 End: 12-30-2023 zolpidem (Ambien) 5 mg table t Indications: Primary insomnia Take 1 tablet (5 mg) by mouth as needed at bedtime for sleep. 30 tablet 5 07/03/2023 Active Completed/Discontinued Medications Medication Drug Class(es) Dates Sig (Normalized) Sig (Original) 100 ml acetaminophen 10 mg/ml injection (20 sources) Start: 10-21-2023 End: 10-21-2023 acetaminophen (OFIRMEV) injection Start: 10-19-2023 End: 10-29-2023 take 650 mg by mouth every four hours as needed for pain and headache 650 mg, Oral, Every 4 hours PRN, mild pain, fever 100.4 F or greater, headaches, Starting on 10/19/23 at 1057 take 1 tablet by esther th every eight hours as needed acetaminophen (TYLENOL) 500 mg tablet Take 500 mg by mouth every 8 hours as needed. Active [id number] 200 actuat albuterol 0.09 mg/actuat metered dose inhaler (3 sources) beta2-Adrenergic Agonist Start: 10-21-2023 End: 10-21-2023 albuterol inhaler Start: 01-07-2022 End: 02-01-2024 Albuterol Sulfate (Ventolin Hfa) 90 mcg/actuation HFA aerosol inhaler Discontinued 1 - 2 NMA INHALATION EVERY 4 HOURS NEEDED as needed for Wheezing 1 0 January 07, 2022 12:00am February 01, 2024 7:27am albuterol 0.833 mg/ml / ipratropium bromide 0.167 mg/ml inhalation solution (1 source) Anticholinergic, beta2-Adrenergic Agonist Start: 10-21-2023 End: 10-29-2023 take 3 mL by inhalation every four hours as needed 3 mL, Inhalation, Every 4 hours PRN (RT), shortness of breath, Starting on Thu10/21/23 at 0848 atorvastatin 20 mg oral tablet (1 source) HMG-CoA Reductase Inhibitor Start: 10-21-2023 End: 10-29-2023 take 20 mg by mouth once daily 20 mg, Oral, Nightly, First dose on Thu10/21/23 at 2100 bevacizumab-awwb 440.5 mg in NaCl 0.9% 127.62 mL (MVASI) (2 sources) Start: 08-03-2024 End: 08-03-2024 440.5 mg (5 mg/kg/dose 88.1 kg Treatment plan Recorded weight), INTRAVENOUS, Administer over 30 Minutes, ONCE, 1 dose, On Thu08/03/24 at 1000, exp 1800 08/03/24 (room temp) -- DO NOT SHAKE Refrigerate, Medication Substitution: [facility] preferred product has been replaced with the insurance mandated product Start: 07-20-2024 End: 07-20-2024 440.5 mg (5 mg/kg/dose 88.1 kg Treatment plan Recorded weight), INTRAVENOUS, Administer over 30 Minutes, ONCE, 1 dose, On Thu07/20/24 at 1100, Approx Total Volume - Expires: 07/21/24 @ 1045 - DO NOT SHAKE Refrigerate, Medication Substitution: [facility] preferred product has been replaced with the insurance mandated product bevacizumab-awwb 471.5 mg in NaCl 0.9% 128.86 mL (MVASI) (9 sources) Start: 06-08-2024 End: 06-08-2024 471.5 mg (5 mg/kg/dose 94.3 kg Treatment plan Recorded weight), INTRAVENOUS, Administer over 30 Minutes, ONCE, 1 dose, On Thu06/08/24 at 1030, exp 0900 06/18/24 (refrigerated) - DO NOT SHAKE Refrigerate, Medication Substitution: [facility] preferred product has been replaced with the insurance mandated product Start: 05-25-2024 End: 05-25-2024 471.5 mg (5 mg/kg/dose 94.3 kg Treatment plan Recorded weight), INTRAVENOUS, Administer over 30 Minutes, ONCE, 1 dose, On Thu05/25/24 at 1000, exp 1400 06/03/24 (refrigerated) -- DO NOT SHAKE Refrigerate, Medication Substitution: [facility] preferred product has been replaced with the insurance mandated product Start: 05-11-2024 End: 05-11-2024 471.5 mg (5 mg/kg/dose 94.3 kg Treatment plan Recorded weight), INTRAVENOUS, Administer over 30 Minutes, ONCE, 1 dose, On Thu05/11/24 at 1030, exp 09:45 05/11/24 (room temp) - DO NOT SHAKE Refrigerate, Medication Substitution: [facility] preferred product has been replaced with the insurance mandated product Start: 04-27-2024 End: 04-27-2024 471.5 mg (5 mg/kg/dose 94.3 kg Treatment plan Recorded weight), INTRAVENOUS, Administer over 30 Minutes, ONCE, 1 dose, On Thu04/27/24 at 1000, exp 09:45 04/28/24 (room temp) -- DO NOT SHAKE Refrigerate, Medication Substitution: [facility] preferred product has been replaced with the insurance mandated product Start: 04-13-2024 End: 04-13-2024 471.5 mg (5 mg/kg/dose 94.3 kg Treatment plan Recorded weight), INTRAVENOUS, Administer over 30 Minutes, ONCE, 1 dose, On Thu04/13/24 at 1030, exp 1400 04/22/24 (refrigerated) -- DO NOT SHAKE Refrigerate, Medication Substitution: [facility] preferred product has been replaced with the insurance mandated product Start: 03-30-2024 End: 03-30-2024 471.5 mg (5 mg/kg/dose 94.3 kg Treatment plan Recorded weight), INTRAVENOUS, Administer over 30 Minutes, ONCE, 1 dose, On Thu03/30/24 at 1030, exp 1000 04/09/24 (refrigerated) -- DO NOT SHAKE Refrigerate, Medication Substitution: [facility] preferred product has been replaced with the insurance mandated product Start: 03-02-2024 End: 03-02-2024 471.5 mg (5 mg/kg/dose 94.3 kg Treatment plan Recorded weight), INTRAVENOUS, Administer over 30 Minutes, ONCE, 1 dose, On Thu03/02/24 at 1000, Approx Total Volume - IMMEDIATE USE at room temp -- DO NOT SHAKE Refrigerate, Medication Substitution: [facility] preferred product has been replaced with the insurance mandated product Start: 01-20-2024 End: 01-20-2024 bevacizumab-awwb 471.5 mg in NaCl 0.9% 128.86 mL (MVASI) Start: 01-06-2024 End: 01-06-2024 bevacizumab-awwb 471.5 mg in NaCl 0.9% 128.86 mL (MVASI) bevacizumab-bvzr 400 mg in N aCl 0.9% 126 mL (ZIRABEV) (1 source) Start: 12-05-2024 End: 12-05-2024 400 mg (rounded from 426.5 m g = 5 mg/kg/dose 85.3 kg Treatment plan Recorded weight), INTRAVENOUS, Administer over 30 Minutes, ONCE, 1 dose, On 12/05/24 at 0930, exp 1700 12/05/24 (room temp) - Do Not Shake Refrigerate bevacizumab-bvzr 440.5 mg in NaCl 0.9% 127.62 mL (ZIRABEV) (6 sources) Start: 10-26-2024 End: 10-26-2024 440.5 mg (5 mg/kg/dose 88.1 kg Treatment plan Recorded weight), INTRAVENOUS, Administer over 30 Minutes, ONCE, 1 dose, On Thu10/26/24 at 1000, Approx Total Volume - exp 1500 11/04/24 (refrigerated) Do Not Shake Refrigerate Start: 10-12-2024 End: 10-12-2024 440.5 mg (5 mg/kg/dose 88.1 kg Treatment plan Recorded weight), INTRAVENOUS, Administer over 30 Minutes, ONCE, 1 dose, On Thu10/12/24 at 1130, Approx Total Volume - exp 0830 10/22/24 (refrigerated) Do Not Shake Refrigerate Start: 09-28-2024 End: 09-28-2024 440.5 mg (5 mg/kg/dose 88.1 kg Treatment plan Recorded weight), INTRAVENOUS, Administer over 30 Minutes, ONCE, 1 dose, On Thu09/28/24 at 1100, Approx Total Volume - Expires: 09/29/24 @ 1035 Do Not Shake Refrigerate Start: 09-14-2024 End: 09-14-2024 440.5 mg (5 mg/kg/dose 88.1 kg Treatment plan Recorded weight), INTRAVENOUS, Administer over 30 Minutes, ONCE, 1 dose, On Thu09/14/24 at 1030, Approx Total Volume - Expires: 09/15/24 @ 1000 Do Not Shake Refrigerate Start: 08-31-2024 End: 08-31-2024 440.5 mg (5 mg/kg/dose 88.1 kg Treatment plan Recorded weight), INTRAVENOUS, Administer over 30 Minutes, ONCE, 1 dose, On Thu08/31/24 at 1000, Approx Total Volume - Expires: 09/01/24 @ 0935 - Do Not Shake Refrigerate Start: 08-17-2024 End: 08-17-2024 440.5 mg (5 mg/kg/dose 88.1 kg Treatment plan Recorded weight), INTRAVENOUS, Administer over 30 Minutes, ONCE, 1 dose, On Thu08/17/24 at 1000, Approx Total Volume - Expires: 08/18/24 @ 0935 - Do Not Shake Refrigerate calcium chloride 0.0014 meq/ml / potassium chloride 0.004 meq/ml / sodium chloride 0.103 meq/ml / sodium lactate 0.028 meq/ml injectable solution (2 sources) Start: 10-21-2023 End: 10-22-2023 take 50 mL intravenously every hour 50 mL/hr, Intravenous, Continuous, Starting on Thu10/21/23 at 1215 Start: 10-21-2023 End: 10-22-2023 lactated Ringers infusion ceFAZolin 2000 mg injection (1 source) Cephalosporin Antibacterial Start: 10-21-2023 End: 10-21-2023 ceFAZolin (ANCEF) IVPB 2 g (premix) cefoTEtan 1000 mg injection (1 source) Cephalosporin Antibacterial Start: 10-21-2023 End: 10-21-2023 cefoTEtan (CEFOTAN) injection 1 ml dexamethasone phosphate 10 mg/ml injection (20 sources) Corticosteroid Start: 12-05-2024 End: 12-05-2024 10 mg, INTRAVENOUS, ONCE, 1 dose, On Thu12/05/24 at 0900, Administer over 5 minutes. Start: 10-26-2024 End: 10-26-2024 10 mg, INTRAVENOUS, ONCE, 1 dose, On Thu10/26/24 at 0930, Administer over 5 minutes. Start: 10-12-2024 End: 10-12-2024 10 mg, INTRAVENOUS, ONCE, 1 dose, On Thu10/12/24 at 1100, Administer over 5 minutes. Start: 09-28-2024 End: 09-28-2024 10 mg, INTRAVENOUS, ONCE, 1 dose, On Thu09/28/24 at 1030, Administer over 5 minutes. Start: 09-14-2024 End: 09-14-2024 10 mg, INTRAVENOUS, ONCE, 1 dose, On Thu09/14/24 at 1000, Administer over 5 minutes. Start: 08-31-2024 End: 08-31-2024 10 mg, INTRAVENOUS, ONCE, 1 dose, On Thu08/31/24 at 0930, Administer over 5 minutes. Start: 08-17-2024 End: 08-17-2024 10 mg, INTRAVENOUS, ONCE, 1 dose, On Thu08/17/24 at 0930, Administer over 5 minutes. Start: 08-03-2024 End: 08-03-2024 10 mg, INTRAVENOUS, ONCE, 1 dose, On Thu08/03/24 at 0930, Administer over 5 minutes. Start: 07-20-2024 End: 07-20-2024 10 mg, INTRAVENOUS, ONCE, 1 dose, On Thu07/20/24 at 1030, Administer over 5 minutes. Start: 06-21-2024 End: 06-21-2024 10 mg, INTRAVENOUS, ONCE, 1 dose, On Thu06/21/24 at 0900, Administer over 5 minutes. Start: 06-08-2024 End: 06-08-2024 10 mg, INTRAVENOUS, ONCE, 1 dose, On Thu06/08/24 at 1000, Administer over 5 minutes. Start: 05-25-2024 End: 05-25-2024 10 mg, INTRAVENOUS, ONCE, 1 dose, On Thu05/25/24 at 0930, Administer over 5 minutes. Start: 05-11-2024 End: 05-11-2024 10 mg, INTRAVENOUS, ONCE, 1 dose, On Thu05/11/24 at 1000, Administer over 5 minutes. Start: 04-27-2024 End: 04-27-2024 10 mg, INTRAVENOUS, ONCE, 1 dose, On Thu04/27/24 at 0930, Administer over 5 minutes. Start: 04-13-2024 End: 04-13-2024 10 mg, INTRAVENOUS, ONCE, 1 dose, On Thu04/13/24 at 1000, Administer over 5 minutes. Start: 12-18-2023 End: 01-09-2025 take 1 tablet by mouth twice daily at mealtime dexAMETHasone (DECADRON) 4 mg tablet Indications: Cancer of cecum (HCC) Take 1 tablet by mouth two times a day with meals. for 3 days beginning the day after chemotherapy treatment. 24 tablet 2 11/09/2024 Active Start: 10-21-2023 End: 10-21-2023 dexAMETHasone (DECADRON) inj ection dexAMETHasone 10 mg in NaCl 0.9% 50 mL (DECADRON) (5 sources) Start: 03-30-2024 End: 03-30-2024 10 mg, INTRAVENOUS, ONCE, 1 dose, On Thu03/30/24 at 1000, Refrigerate. Start: 03-02-2024 End: 03-02-2024 10 mg, INTRAVENOUS, Administ er over 15 Minutes, ONCE, 1 dose, On Thu03/02/24 at 0930, Refrigerate. Start: 02-17-2024 End: 02-17-2024 10 mg, INTRAVENOUS, ONCE, 1 dose, On Thu02/17/24 at 0830, Refrigerate. Start: 01-20-2024 End: 01-20-2024 dexAMETHasone 10 mg in NaCl 0.9% 50 mL (DECADRON) Start: 01-06-2024 End: 01-06-2024 dexAMETHasone 10 mg in NaCl 0.9% 50 mL (DECADRON) diazePAM 5 mg oral tablet (6 sources) Benzodiazepine Start: 04-15-2022 diazePAM 5 MG Oral Tablet 1 tab PO 30 minutes prior to MRI Quantity: 1 Refills: 0 Ordered: 15-Apr-2022 Tamara Sesay MD Start : 15-Apr-2022 Active 0.4 ml enoxaparin sodium 100 mg/ml prefilled syringe (1 source) Low Molecular Weight Heparin Start: 10-23-2023 End: 10-29-2023 inject 40 mg by subcutaneous injection once daily 40 mg, Subcutaneous, Daily, First dose on Thu10/23/23 at 0900, Administer in abdomen unless otherwise directed by prescriber. Notify physician if patient refuses., Indication: VTE Prophylaxis famotidine 20 mg oral tablet (5 sources) Histamine-2 Receptor Antagonist Start: 09-26-2023 End: 11-09-2023 take 1 tablet by mouth twice daily famotidine (PEPCID) 20 MG tablet Take 1 (one) tablet (20 mg total) by mouth 2 (two) times a day for 10 days . 20 tablet 0 09/26/2023 11/09/2023 Discontinued (Therapy completed) 1 ml fentaNYL 0.05 mg/ml injection (1 source) Opioid Agonist Start: 10-21-2023 End: 10-21-2023 fentaNYL (SUBLIMAZE) injection fluorouracil 50 mg/ml injectable solution (4 sources) Nucleoside Metabolic Inhibitor Start: 03-02-2024 End: 03-02-2024 828 mg (400 mg/m2 2.07 m2 Treatment Plan BSA from Recorded weight), INTRAVENOUS, ONCE, 1 dose, On Thu03/02/24 at 1230, Push over 2-4 minutes start immediately after leucovorin infusion is complete. Expires: 03/04/24 @ 0930 Hazardous Chemotherapy Drug: Use appropriate PPE. Start: 02-17-2024 End: 02-17-2024 828 mg (400 mg/m2 2.07 m2 Tr eatment Plan BSA from Recorded weight), INTRAVENOUS, ONCE, 1 dose, On Thu02/17/24 at 1130, Push over 2-4 minutes start immediately after leucovorin infusion is complete. exp 1400 02/23/24 (room temp) _ Hazardous Chemotherapy Drug: Use appropriate PPE. Start: 01-20-2024 End: 01-20-2024 fluorouracil 828 mg injectio n (ADRUCIL) Start: 01-06-2024 End: 01-06-2024 fluorouracil 828 mg injectio n (ADRUCIL) fluorouracil (ADRUCIL) 4,500 mg in NaCl 0.9% 102 mL in empty bag (1 source) Start: 12-05-2024 End: 12-05-2024 4,500 mg (rounded from 4,704 mg = 2,400 mg/m2 1.96 m2 Treatment Plan BSA from Recorded weight), INTRAVENOUS, at 2.2 mL/hr, Administer over 46 Hours, ONCE, 1 dose, On 12/05/24 at 1130, Expires: 12/12/24 @ (refrigerated) Hazardous Chemotherapy Drug: Use appropriate PPE. Protect from Light. fluorouracil (ADRUCIL) 4,776 mg in NaCl 0.9% 102 mL in empty bag (8 sources) Start: 10-26-2024 End: 10-26-2024 4,776 mg (2,400 mg/m2 1.99 m 2 Treatment Plan BSA from Recorded weight), INTRAVENOUS, at 2.2 mL/hr, Administer over 46 Hours, ONCE, 1 dose, On Thu10/26/24 at 1230, exp 1500 11/04/24 (refrigerated) Hazardous Chemotherapy Drug: Use appropriate PPE. Protect from Light. Start: 10-12-2024 End: 10-12-2024 4,776 mg (2,400 mg/m2 1.99 m 2 Treatment Plan BSA from Recorded weight), INTRAVENOUS, at 2.2 mL/hr, Administer over 46 Hours, ONCE, 1 dose, On Thu10/12/24 at 1400, exp 0900 10/22/24 (refrigerated) Hazardous Chemotherapy Drug: Use appropriate PPE. Protect from Light. Start: 09-28-2024 End: 09-28-2024 4,776 mg (2,400 mg/m2 1.99 m 2 Treatment Plan BSA from Recorded weight), INTRAVENOUS, at 2.2 mL/hr, Administer over 46 Hours, ONCE, 1 dose, On Thu09/28/24 at 1330, Expires: 10/07/24 @ 1330 (refrigerated) Hazardous Chemotherapy Drug: Use appropriate PPE. Protect from Light. Start: 09-14-2024 End: 09-14-2024 4,776 mg (2,400 mg/m2 1.99 m 2 Treatment Plan BSA from Recorded weight), INTRAVENOUS, at 2.2 mL/hr, Administer over 46 Hours, ONCE, 1 dose, On Thu09/14/24 at 1300, Expires: 09/18/24 @ 1000 Hazardous Chemotherapy Drug: Use appropriate PPE. Protect from Light. Start: 08-31-2024 End: 08-31-2024 4,776 mg (2,400 mg/m2 1.99 m 2 Treatment Plan BSA from Recorded weight), INTRAVENOUS, at 2.2 mL/hr, Administer over 46 Hours, ONCE, 1 dose, On Thu08/31/24 at 1230, Expires: 09/04/24 @ 0930 (room temp) Hazardous Chemotherapy Drug: Use appropriate PPE. Protect from Light. Start: 08-17-2024 End: 08-17-2024 4,776 mg (2,400 mg/m2 1.99 m 2 Treatment Plan BSA from Recorded weight), INTRAVENOUS, at 2.2 mL/hr, Administer over 46 Hours, ONCE, 1 dose, On Thu08/17/24 at 1230, exp 0900 08/24/24 (room temp) Hazardous Chemotherapy Drug: Use appropriate PPE. Protect from Light. Start: 08-03-2024 End: 08-03-2024 4,776 mg (2,400 mg/m2 1.99 m 2 Treatment Plan BSA from Recorded weight), INTRAVENOUS, at 2.2 mL/hr, Administer over 46 Hours, ONCE, 1 dose, On Thu08/03/24 at 1230, exp 0900 08/07/24 (room temp) Hazardous Chemotherapy Drug: Use appropriate PPE. Protect from Light. Start: 07-20-2024 End: 07-20-2024 4,776 mg (2,400 mg/m2 1.99 m 2 Treatment Plan BSA from Recorded weight), INTRAVENOUS, at 2.2 mL/hr, Administer over 46 Hours, ONCE, 1 dose, On Thu07/20/24 at 1330, Expires: 07/24/24 @ 1100 Hazardous Chemotherapy Drug: Use appropriate PPE. Protect from Light. fluorouracil (ADRUCIL) 4,968 mg in NaCl 0.9% 102 mL in empty bag (11 sources) Start: 06-21-2024 End: 06-21-2024 4,968 mg (2,400 mg/m2 2.07 m 2 Treatment Plan BSA from Recorded weight), INTRAVENOUS, at 2.2 mL/hr, Administer over 46 Hours, ONCE, 1 dose, On Thu06/21/24 at 1200, exp 1100 06/27/24 (room temp) Hazardous Chemotherapy Drug: Use appropriate PPE. Protect from Light. Start: 06-08-2024 End: 06-08-2024 4,968 mg (2,400 mg/m2 2.07 m 2 Treatment Plan BSA from Recorded weight), INTRAVENOUS, at 2.2 mL/hr, Administer over 46 Hours, ONCE, 1 dose, On Thu06/08/24 at 1300, exp 0900 06/15/24 (room temp) Hazardous Chemotherapy Drug: Use appropriate PPE. Protect from Light. Start: 05-25-2024 End: 05-25-2024 4,968 mg (2,400 mg/m2 2.07 m 2 Treatment Plan BSA from Recorded weight), INTRAVENOUS, at 2.2 mL/hr, Administer over 46 Hours, ONCE, 1 dose, On Thu05/25/24 at 1230, exp 1400 05/31/24 (room temp) Hazardous Chemotherapy Drug: Use appropriate PPE. Protect from Light. Start: 05-11-2024 End: 05-11-2024 4,968 mg (2,400 mg/m2 2.07 m 2 Treatment Plan BSA from Recorded weight), INTRAVENOUS, at 2.2 mL/hr, Administer over 46 Hours, ONCE, 1 dose, On Thu05/11/24 at 1300, exp 0900 05/18/24 (room temp) Hazardous Chemotherapy Drug: Use appropriate PPE. Protect from Light. Start: 04-27-2024 End: 04-27-2024 4,968 mg (2,400 mg/m2 2.07 m 2 Treatment Plan BSA from Recorded weight), INTRAVENOUS, at 2.2 mL/hr, Administer over 46 Hours, ONCE, 1 dose, On Thu04/27/24 at 1230, exp 1200 05/03/24 (room temp) Hazardous Chemotherapy Drug: Use appropriate PPE. Protect from Light. Start: 04-13-2024 End: 04-13-2024 4,968 mg (2,400 mg/m2 2.07 m 2 Treatment Plan BSA from Recorded weight), INTRAVENOUS, at 2.2 mL/hr, Administer over 46 Hours, ONCE, 1 dose, On Thu04/13/24 at 1300, exp 1400 04/19/24 (room temp) Hazardous Chemotherapy Drug: Use appropriate PPE. Protect from Light. Start: 03-30-2024 End: 03-30-2024 4,968 mg (2,400 mg/m2 2.07 m 2 Treatment Plan BSA from Recorded weight), INTRAVENOUS, at 2.2 mL/hr, Administer over 46 Hours, ONCE, 1 dose, On Thu03/30/24 at 1300, exp 1200 04/05/24 (room temp) Hazardous Chemotherapy Drug: Use appropriate PPE. Protect from Light. Start: 03-02-2024 End: 03-02-2024 4,968 mg (2,400 mg/m2 2.07 m 2 Treatment Plan BSA from Recorded weight), INTRAVENOUS, at 2.2 mL/hr, Administer over 46 Hours, ONCE, 1 dose, On Thu03/02/24 at 1230, Expires: 03/09/24 @ 0930 Hazardous Chemotherapy Drug: Use appropriate PPE. Protect from Light. Start: 02-17-2024 End: 02-17-2024 4,968 mg (2,400 mg/m2 2.07 m 2 Treatment Plan BSA from Recorded weight), INTRAVENOUS, at 2.2 mL/hr, Administer over 46 Hours, ONCE, 1 dose, On Thu02/17/24 at 1130, exp 1400 02/23/24 (room temp) Hazardous Chemotherapy Drug: Use appropriate PPE. Protect from Light. Start: 01-20-2024 End: 01-20-2024 fluorouracil (ADRUCIL) 4,968 mg in NaCl 0.9% 102 mL in empty bag Start: 01-06-2024 End: 01-06-2024 fluorouracil (ADRUCIL) 4,968 mg in NaCl 0.9% 102 mL in empty bag fluticasone propionate 0.05 mg/actuat metered dose nasal spray (17 sources) Corticosteroid Start: 06-16-2019 take 1 spray(s) nasal route twice daily Fluticasone Propionate 50 MCG/ACT Nasal Suspension USE 1 SPRAY IN EACH NOSTRIL TWICE DAILY. Quantity: 0 Refills: 0 Ordered: 16-Jun-2019 DO Start : 16-Jun-2019 Active 4 ml furosemide 10 mg/ml injection (3 sources) Loop Diuretic Start: 10-22-2023 End: 10-23-2023 20 mg, Intravenous, Every 8 hours scheduled, First dose (after last reorder) on Khloe 10/22/23 at 1400, For 3 doses, Administer IV push at 20 mg per minute (doses higher than 100 mg require IVPB) Start: 10-21-2023 End: 10-21-2023 40 mg, Intravenous, Once, On Thu10/21/23 at 2115, For 1 dose, Administer IV push at 20 mg per minute (doses higher than 100 mg require IVPB) Start: 10-20-2023 End: 10-20-2023 20 mg, Intravenous, Every 6 hours scheduled, First dose on Thu10/20/23 at 1800, For 2 doses, Administer IV push at 20 mg per minute (doses higher than 100 mg require IVPB) gabapentin 300 mg oral capsule (3 sources) Anti-epileptic Agent Start: 03-25-2022 take 1 capsule by mouth once daily Gabapentin 300 MG Oral Capsule take 1 capsule by mouth once daily Quantity: 30 Refills: 2 Ordered: 25-Mar-2022 Dayami Roe MD Start : 25-Mar-2022 Active glimepiride 4 mg oral tablet (20 sources) Sulfonylurea Start: 01-05-2020 End: 01-14-2029 take 1 tablet by mouth once daily glimepiride (AMARYL) 4 mg tablet Take 1 tablet by mouth once daily. 90 tablet 1 01/09/2025 01/09/2025 Discontinued (Course of therapy completed) 2 ml glycopyrrolate 0.2 mg/ml injection (1 source) Start: 10-21-2023 End: 10-21-2023 glycopyrrolate (ROBINUL) injection 12 hr guaiFENesin 600 mg extended release oral tablet (1 source) Start: 10-23-2023 End: 10-29-2023 take 600 mg by mouth every twelve hours 600 mg, Oral, Every 12 hours scheduled, First dose on Thu10/23/23 at 2100, DO NOT CRUSH OR CHEW. homatropine methylbromide 0.3 mg/ml / HYDROcodone bitartrate 1 mg/ml oral solution (1 source) Opioid Agonist, Cholinergic Muscarinic Agonist Start: 10-23-2023 End: 10-29-2023 take 5 mL by mouth every four hours as needed for cough 5 mL, Oral, Every 4 hours PRN, cough, Starting on Thu10/23/23 at 1516 hydroCHLOROthiazide 12.5 mg / lisinopril 10 mg oral tablet (20 sources) Thiazide Diuretic, Angiotensin Converting Enzyme Inhibitor Start: 06-16-2019 End: 11-24-2024 Lisinopril-Hydroch lorothiazide 10-12.5 mg Tablet Discontinued 1 {tbl} PO DAILY January 07, 2022 12:00am November 24, 2024 8:01am Start: 06-16-2019 End: 10-29-2023 Start: 06-16-2019 take 1 tablet by esther th every twenty-four hours lisinopriL-hydrochlorothiazide (PRINZIDE,ZESTORETIC) 10-12.5 mg per tablet Take 1 Unspecified by mouth daily . 0 06/16/2019 Suspended 0.5 ml HYDROmorphone hydrochloride 1 mg/ml prefilled syringe (2 sources) Opioid Agonist Start: 10-22-2023 End: 10-23-2023 take 0.25 mg intravenously every three hours as needed 0.25 mg, Intravenous, Every 3 hours PRN, moderate to severe pain, Starting on Khloe 10/22/23 at 0831 Start: 10-21-2023 End: 10-21-2023 HYDROmorphone (DILAUDID) inj ection hyoscyamine sulfate 0.125 mg sublingual tablet (1 source) Start: 12-05-2024 End: 12-05-2024 take 0.25 mg under the tongue once 0.25 mg, SUBLINGUAL, ONCE, 1 dose, On Thu12/05/24 at 0900 Start: 12-05-2024 End: 12-05-2024 take 0.25 mg under the tongue once 0.25 mg, SUBLINGUAL, ONCE, 1 dose, On Thu12/05/24 at 0900 indocyanine green (IC-GREEN) injection (1 source) Start: 10-21-2023 End: 10-21-2023 indocyanine green (IC-GREEN) injection insulin lispro 100 unt/ml injectable solution (1 source) Insulin Analog Start: 10-19-2023 End: 10-29-2023 0-30 Units, Subcutaneous, 3 times daily before meals, First dose on Thu10/19/23 at 1130, * Dose should be given EITHER: No sooner than 10-15 minutes BEFORE a meal (Specific Prandial Doses or NO Prandial Dose - Corrective Scale ONLY) - OR - Immediately AFTER meal completed (Carb Counting Ratio), Prandial Insulin Dosing Method: NO Prandial Dose - Corrective Scale ONLY, Corrective Insulin Regimen (select desired scale to cover BG result): USUAL Sensitivity Scale, Dose Reduction Threshold (at meals) for POC Blood Glucose less than or equal to: 80, For Downtime Calculator, use: Insulin SC MEALtime PREprandial irinotecan (1 source) Topoisomerase Inhibitor Start: 12-05-2024 End: 12-05-2024 280 mg (rounded from 294 mg = 150 mg/m2 1.96 m2 Treatment Plan BSA from Recorded weight), INTRAVENOUS, Administer over 90 Minutes, ONCE, 1 dose, On 12/05/24 at 1000, Approx Total Volume - Expires: 12/06/24 @ Hazardous Chemotherapy Drug: Use appropriate PPE. Antineoplastic Irritant. 5 ml iron sucrose 20 mg/ml injection (1 source) Parenteral Iron Replacement Start: 10-20-2023 End: 10-22-2023 200 mg, Intravenous, Daily, First dose on Thu10/20/23 at 1730, For 3 doses, Administer as IV push over 5 minutes Doses equal to or less than 200 mg may be given IV Push; IF administered IV Push, give over 5 minutes iron sucrose iv piggyback 200 mg in NaCl 0.9% 100 mL (VENOFER) (4 sources) Start: 12-30-2023 End: 12-30-2023 iron sucrose iv piggyback 200 mg in NaCl 0.9% 100 mL (VENOFER) Start: 12-25-2023 End: 12-25-2023 iron sucrose iv piggyback 20 0 mg in NaCl 0.9% 100 mL (VENOFER) Start: 12-23-2023 End: 12-23-2023 iron sucrose iv piggyback 20 0 mg in NaCl 0.9% 100 mL (VENOFER) Start: 12-21-2023 End: 12-21-2023 iron sucrose iv piggyback 20 0 mg in NaCl 0.9% 100 mL (VENOFER) Leucovorin (20 sources) Folate Analog Start: 12-05-2024 End: 12-05-2024 784 mg (400 mg/m2 1.96 m2 Tr eatment Plan BSA from Recorded weight), INTRAVENOUS, Administer over 90 Minutes, ONCE, 1 dose, On 12/05/24 at 1000, Approx Total Volume - Expires: 12/06/24 @ (refrigerated) PROTECT FROM LIGHT ADMINISTER CONCURRENTLY WITH IRINOTECAN. REFRIGERATE Start: 10-26-2024 End: 10-26-2024 796 mg (400 mg/m2 1.99 m2 Tr eatment Plan BSA from Recorded weight), INTRAVENOUS, Administer over 2 Hours, ONCE, 1 dose, On Thu10/26/24 at 1030, Approx Total Volume exp 1500 10/29/24 (refrigerated) PROTECT FROM LIGHT ADMINISTER CONCURRENTLY WITH OXALIPLATIN. REFRIGERATE Start: 10-12-2024 End: 10-12-2024 796 mg (400 mg/m2 1.99 m2 Tr eatment Plan BSA from Recorded weight), INTRAVENOUS, Administer over 2 Hours, ONCE, 1 dose, On Thu10/12/24 at 1200, Approx Total Volume - exp 0900 10/16/24 (refrigerated) PROTECT FROM LIGHT ADMINISTER CONCURRENTLY WITH OXALIPLATIN. REFRIGERATE Start: 09-28-2024 End: 09-28-2024 796 mg (400 mg/m2 1.99 m2 Tr eatment Plan BSA from Recorded weight), INTRAVENOUS, Administer over 2 Hours, ONCE, 1 dose, On Thu09/28/24 at 1130, Approx Total Volume - Expires: 10/01/24 @ (refrigerated) PROTECT FROM LIGHT ADMINISTER CONCURRENTLY WITH OXALIPLATIN. REFRIGERATE Start: 09-14-2024 End: 09-14-2024 796 mg (400 mg/m2 1.99 m2 Tr eatment Plan BSA from Recorded weight), INTRAVENOUS, Administer over 2 Hours, ONCE, 1 dose, On Thu09/14/24 at 1100, Approx Total Volume - Expires: 09/15/24 @ 1600 PROTECT FROM LIGHT ADMINISTER CONCURRENTLY WITH OXALIPLATIN. REFRIGERATE Start: 08-31-2024 End: 08-31-2024 796 mg (400 mg/m2 1.99 m2 Tr eatment Plan BSA from Recorded weight), INTRAVENOUS, Administer over 2 Hours, ONCE, 1 dose, On Thu08/31/24 at 1030, Approx Total Volume - Expires: 09/01/24 @ 1530 PROTECT FROM LIGHT ADMINISTER CONCURRENTLY WITH OXALIPLATIN. REFRIGERATE Start: 08-17-2024 End: 08-17-2024 796 mg (400 mg/m2 1.99 m2 Tr eatment Plan BSA from Recorded weight), INTRAVENOUS, Administer over 2 Hours, ONCE, 1 dose, On Thu08/17/24 at 1030, Approx Total Volume - Expires: 08/18/24 @ 1540 PROTECT FROM LIGHT ADMINISTER CONCURRENTLY WITH OXALIPLATIN. REFRIGERATE Start: 08-03-2024 End: 08-03-2024 796 mg (400 mg/m2 1.99 m2 Tr eatment Plan BSA from Recorded weight), INTRAVENOUS, Administer over 2 Hours, ONCE, 1 dose, On Thu08/03/24 at 1030, PROTECT FROM LIGHT exp 0830 08/17/24 (refrigerated) ADMINISTER CONCURRENTLY WITH OXALIPLATIN. REFRIGERATE Start: 07-20-2024 End: 07-20-2024 796 mg (400 mg/m2 1.99 m2 Tr eatment Plan BSA from Recorded weight), INTRAVENOUS, Administer over 2 Hours, ONCE, 1 dose, On Thu07/20/24 at 1130, Approx Total Volume - Expires: 07/21/24 @ 1635 PROTECT FROM LIGHT ADMINISTER CONCURRENTLY WITH OXALIPLATIN. REFRIGERATE Start: 06-21-2024 End: 06-21-2024 828 mg (400 mg/m2 2.07 m2 Tr eatment Plan BSA from Recorded weight), INTRAVENOUS, Administer over 2 Hours, ONCE, 1 dose, On Thu06/21/24 at 1000, PROTECT FROM LIGHT exp 1100 07/25/23 (refrigerated) ADMINISTER CONCURRENTLY WITH OXALIPLATIN. REFRIGERATE Start: 06-08-2024 End: 06-08-2024 828 mg (400 mg/m2 2.07 m2 Tr eatment Plan BSA from Recorded weight), INTRAVENOUS, Administer over 2 Hours, ONCE, 1 dose, On Thu06/08/24 at 1100, PROTECT FROM LIGHT ADMINISTER CONCURRENTLY WITH OXALIPLATIN. REFRIGERATE Start: 05-25-2024 End: 05-25-2024 828 mg (400 mg/m2 2.07 m2 Tr eatment Plan BSA from Recorded weight), INTRAVENOUS, Administer over 2 Hours, ONCE, 1 dose, On Thu05/25/24 at 1030, PROTECT FROM LIGHT exp 1400 05/28/24 (refrigerated) ADMINISTER CONCURRENTLY WITH OXALIPLATIN. REFRIGERATE Start: 05-11-2024 End: 05-11-2024 828 mg (400 mg/m2 2.07 m2 Tr eatment Plan BSA from Recorded weight), INTRAVENOUS, Administer over 2 Hours, ONCE, 1 dose, On Thu05/11/24 at 1100, PROTECT FROM LIGHT exp 0900 05/15/24 (refrigerated) ADMINISTER CONCURRENTLY WITH OXALIPLATIN. REFRIGERATE Start: 04-27-2024 End: 04-27-2024 828 mg (400 mg/m2 2.07 m2 Tr eatment Plan BSA from Recorded weight), INTRAVENOUS, Administer over 2 Hours, ONCE, 1 dose, On Thu04/27/24 at 1030, PROTECT FROM LIGHT exp 1400 04/30/24 (refrigerated) ADMINISTER CONCURRENTLY WITH OXALIPLATIN. REFRIGERATE Start: 04-13-2024 End: 04-13-2024 828 mg (400 mg/m2 2.07 m2 Tr eatment Plan BSA from Recorded weight), INTRAVENOUS, Administer over 2 Hours, ONCE, 1 dose, On Thu04/13/24 at 1100, PROTECT FROM LIGHT exp 1400 04/14/24 (refrigerated) ADMINISTER CONCURRENTLY WITH OXALIPLATIN. REFRIGERATE Start: 03-30-2024 End: 03-30-2024 828 mg (400 mg/m2 2.07 m2 Tr eatment Plan BSA from Recorded weight), INTRAVENOUS, Administer over 2 Hours, ONCE, 1 dose, On Thu03/30/24 at 1100, PROTECT FROM LIGHT exp 1100 04/02/24 (refrigerated) ADMINISTER CONCURRENTLY WITH OXALIPLATIN. REFRIGERATE Start: 03-02-2024 End: 03-02-2024 828 mg (400 mg/m2 2.07 m2 Tr eatment Plan BSA from Recorded weight), INTRAVENOUS, Administer over 2 Hours, ONCE, 1 dose, On Thu03/02/24 at 1030, Approx Total Volume - Expires: 03/03/24 @ 1520 PROTECT FROM LIGHT ADMINISTER CONCURRENTLY WITH OXALIPLATIN. REFRIGERATE Start: 02-17-2024 End: 02-17-2024 828 mg (400 mg/m2 2.07 m2 T reatment Plan BSA from Recorded weight), INTRAVENOUS, Administer over 2 Hours, ONCE, 1 dose, On Thu02/17/24 at 0930, PROTECT FROM LIGHT exp 1400 02/20/24 (refrigerated) ADMINISTER CONCURRENTLY WITH OXALIPLATIN. REFRIGERATE Start: 01-20-2024 End: 01-20-2024 leucovorin 828 mg in D5W 99. 4 mL Start: 01-06-2024 End: 01-06-2024 leucovorin 828 mg in D5W 99. 4 mL Lidocaine (1 source) Antiarrhythmic, Amide Local Anesthetic Start: 10-21-2023 End: 10-21-2023 lidocaine 20 mg/mL (2 %) injection lidocaine 25 mg/ml / prilocaine 25 mg/ml topical cream (20 sources) Antiarrhythmic, Amide Local Anesthetic Start: 02-01-2024 End: 01-09-2025 Lidocaine-Prilocaine 2.5-2.5 % cream Discontinued February 01, 2024 12:00am January 09, 2025 1:26pm Start: 12-18-2023 lidocaine-pril ocaine (EMLA) 2.5-2.5 % cream Apply to affected area as needed. 30 g 2 12/18/2023 Active 100 ml magnesium sulfate 40 mg/ml injection (10 sources) Start: 12-05-2024 End: 12-05-2024 take 2 g intravenously every hour 4 g, INTRAVENOUS, at 25-50 mL/hr, Administer over 2-4 Hours, ONCE, 1 dose, On Thu12/05/24 at 1000, Magnesium 1.4 to 1.6 infuse 4gm Magnesium Sulfate IV over 2 hours. Magnesium sulfate iv bolus will be infused at a rate of 1 gram/hr The following nursing units may administer 2 g dose over 1 hour if necessary: ICUs/PACU/ED, Adult Hematology/Oncology, Labor and Delivery, Cardiac Stepdown, Headache Clinic If necessary, a magnesium sulfate bolus may be administered greater than 2 g/hr for the following indications: Adult and Pediatric Asthma Exacerbations, [place], Pediatric BMT and Hematology/Oncology, Eclampsia or Preeclampsia Start: 09-14-2024 End: 09-14-2024 take 2 g intravenously every hour 4 g, INTRAVENOUS, at 25-50 mL/hr, Administer over 2-4 Hours, ONCE, 1 dose, On Thu09/14/24 at 1130, Magnesium 1.4 to 1.6 infuse 4gm Magnesium Sulfate IV over 2 hours. Magnesium sulfate iv bolus will be infused at a rate of 1 gram/hr The following nursing units may administer 2 g dose over 1 hour if necessary: ICUs/PACU/ED, Adult Hematology/Oncology, Labor and Delivery, Cardiac Stepdown, Headache Clinic If necessary, a magnesium sulfate bolus may be administered greater than 2 g/hr for the following indications: Adult and Pediatric Asthma Exacerbations, [place], Pediatric BMT and Hematology/Oncology, Eclampsia or Preeclampsia Start: 08-31-2024 End: 08-31-2024 take 2 g intravenously every hour 4 g, INTRAVENOUS, at 25-50 mL/hr, Administer over 2-4 Hours, ONCE, 1 dose, On Thu08/31/24 at 1200, Magnesium 1.4 to 1.6 infuse 4gm Magnesium Sulfate IV over 2 hours. Magnesium sulfate iv bolus will be infused at a rate of 1 gram/hr The following nursing units may administer 2 g dose over 1 hour if necessary: ICUs/PACU/ED, Adult Hematology/Oncology, Labor and Delivery, Cardiac Stepdown, Headache Clinic If necessary, a magnesium sulfate bolus may be administered greater than 2 g/hr for the following indications: Adult and Pediatric Asthma Exacerbations, [place], Pediatric BMT and Hematology/Oncology, Eclampsia or Preeclampsia Start: 07-06-2024 End: 07-06-2024 2 g, INTRAVENOUS, at 25-50 m L/hr, Administer over 1-2 Hours, ONCE, 1 dose, On Thu07/06/24 at 1000, Magnesium Sulfate IV bolus will be infused at a rate of 1 gram/hr. The following care areas may administer a magnesium sulfate bolus at a rate of 2 grams/hr if necessary: 1) ICUs/PACU/ED 2) Adult Hematology/Oncology 3) Labor and Delivery 4) Cardiac Step Down 5) Headache Clinic The following care areas may administer a magnesium sulfate bolus at a rate of GREATER than 2 grams/hr if necessary: 1) Adult and Pediatric Asthma Exacerbations 2) [place] 3) Pediatric BMT and Hematology/Oncology 4) Eclampsia or Preeclampsia Start: 07-06-2024 End: 07-06-2024 take 2 g intravenously every hour 4 g, INTRAVENOUS, at 25-50 mL/hr, Administer over 2-4 Hours, ONCE, 1 dose, On Thu07/06/24 at 1000, Magnesium 1.4 to 1.6 infuse 4gm Magnesium Sulfate IV over 2 hours. Magnesium sulfate iv bolus will be infused at a rate of 1 gram/hr The following nursing units may administer 2 g dose over 1 hour if necessary: ICUs/PACU/ED, Adult Hematology/Oncology, Labor and Delivery, Cardiac Stepdown, Headache Clinic If necessary, a magnesium sulfate bolus may be administered greater than 2 g/hr for the following indications: Adult and Pediatric Asthma Exacerbations, [place], Pediatric BMT and Hematology/Oncology, Eclampsia or Preeclampsia Start: 03-16-2024 End: 03-16-2024 2 g, INTRAVENOUS, at 25-50 m L/hr, Administer over 1-2 Hours, ONCE, 1 dose, On Thu03/16/24 at 0830, Magnesium Sulfate IV bolus will be infused at a rate of 1 gram/hr. The following care areas may administer a magnesium sulfate bolus at a rate of 2 grams/hr if necessary: 1) ICUs/PACU/ED 2) Adult Hematology/Oncology 3) Labor and Delivery 4) Cardiac Step Down 5) Headache Clinic The following care areas may administer a magnesium sulfate bolus at a rate of GREATER than 2 grams/hr if necessary: 1) Adult and Pediatric Asthma Exacerbations 2) [place] 3) Pediatric BMT and Hematology/Oncology 4) Eclampsia or Preeclampsia Start: 03-16-2024 End: 03-16-2024 4 g, INTRAVENOUS, at 25-50 m L/hr, Administer over 2-4 Hours, ONCE, 1 dose, On Thu03/16/24 at 0830, Magnesium 1.4 to 1.6 infuse 4gm Magnesium Sulfate IV over 2 hours. Magnesium Sulfate IV bolus will be infused at a rate of 1 gram/hr. The following care areas may administer a magnesium sulfate bolus at a rate of 2 grams/hr if necessary: 1) ICUs/PACU/ED 2) Adult Hematology/Oncology 3) Labor and Delivery 4) Cardiac Step Down 5) Headache Clinic The following care areas may administer a magnesium sulfate bolus at a rate of GREATER than 2 grams/hr if necessary: 1) Adult and Pediatric Asthma Exacerbations 2) [place] 3) Pediatric BMT and Hematology/Oncology 4) Eclampsia or Preeclampsia Start: 03-02-2024 End: 03-02-2024 4 g, INTRAVENOUS, at 25-50 m L/hr, Administer over 2-4 Hours, ONCE, 1 dose, On Thu03/02/24 at 1000, Magnesium 1.4 to 1.6 infuse 4gm Magnesium Sulfate IV over 2 hours. Magnesium Sulfate IV bolus will be infused at a rate of 1 gram/hr. The following care areas may administer a magnesium sulfate bolus at a rate of 2 grams/hr if necessary: 1) ICUs/PACU/ED 2) Adult Hematology/Oncology 3) Labor and Delivery 4) Cardiac Step Down 5) Headache Clinic The following care areas may administer a magnesium sulfate bolus at a rate of GREATER than 2 grams/hr if necessary: 1) Adult and Pediatric Asthma Exacerbations 2) [place] 3) Pediatric BMT and Hematology/Oncology 4) Eclampsia or Preeclampsia Start: 02-17-2024 End: 02-17-2024 2 g, INTRAVENOUS, at 25-50 m L/hr, Administer over 1-2 Hours, ONCE, 1 dose, On Thu02/17/24 at 0830, Magnesium Sulfate IV bolus will be infused at a rate of 1 gram/hr. The following care areas may administer a magnesium sulfate bolus at a rate of 2 grams/hr if necessary: 1) ICUs/PACU/ED 2) Adult Hematology/Oncology 3) Labor and Delivery 4) Cardiac Step Down 5) Headache Clinic The following care areas may administer a magnesium sulfate bolus at a rate of GREATER than 2 grams/hr if necessary: 1) Adult and Pediatric Asthma Exacerbations 2) [place] 3) Pediatric BMT and Hematology/Oncology 4) Eclampsia or Preeclampsia Start: 02-17-2024 End: 02-17-2024 4 g, INTRAVENOUS, at 25-50 m L/hr, Administer over 2-4 Hours, ONCE, 1 dose, On Thu02/17/24 at 0830, Magnesium 1.4 to 1.6 infuse 4gm Magnesium Sulfate IV over 2 hours. Magnesium Sulfate IV bolus will be infused at a rate of 1 gram/hr. The following care areas may administer a magnesium sulfate bolus at a rate of 2 grams/hr if necessary: 1) ICUs/PACU/ED 2) Adult Hematology/Oncology 3) Labor and Delivery 4) Cardiac Step Down 5) Headache Clinic The following care areas may administer a magnesium sulfate bolus at a rate of GREATER than 2 grams/hr if necessary: 1) Adult and Pediatric Asthma Exacerbations 2) [place] 3) Pediatric BMT and Hematology/Oncology 4) Eclampsia or Preeclampsia magnesium sulfate 0.0277 meq/ml / potassium sulfate 0.0374 meq/ml / sodium sulfate 0.257 meq/ml oral solution (2 sources) Start: 10-19-2023 End: 10-20-2023 1 each, Oral, Once, On Thu10/20/23 at 0400, For 1 dose, Dilute the solution prior to use. Oral medications should not be administered within 1 hour of start of therapy. To be given as a split dose (2-day) regimen. Evening before colonoscopy: Dilute one bottle with water to a total volume of 16 ounces (up to the fill line) and drink the entire amount. Drink 32 ounces of water over the next hour. Next morning: Repeat both steps using the second bottle. The 2nd preparation should be completed no later than 0600 on the day of the procedure. 2 ml metoclopramide 5 mg/ml injection (1 source) Dopamine-2 Receptor Antagonist Start: 10-23-2023 End: 10-28-2023 take 10 mg intravenously every six hours 10 mg, Intravenous, Every 6 hours, First dose on Thu10/23/23 at 1645 100 ml metroNIDAZOLE 5 mg/ml injection (1 source) Nitroimidazole Antimicrobial Start: 10-21-2023 End: 10-21-2023 500 mg, Intravenous, at 200 mL/hr, Once, On Thu10/21/23 at 1200, For 1 dose, Pre-Procedure, Administer within 60 minutes prior to procedure DO NOT REFRIGERATE, Indication (PRE PROCEDURE): colon surgery 1 ml morphine sulfate 2 mg/ml cartridge (1 source) Opioid Agonist Start: 10-21-2023 End: 10-22-2023 take 2 mg intravenously every three hours as needed 2 mg, Intravenous, Every 3 hours PRN, moderate to severe pain, Starting on Thu10/21/23 at 2343, For 3 doses oxaliplatin (19 sources) [place]'-based Drug Start: 10-26-2024 End: 10-26-2024 119.4 mg (60 mg/m2 1.99 m2 Treatment Plan BSA from Recorded weight), INTRAVENOUS, Administer over 2 Hours, ONCE, 1 dose, On Thu10/26/24 at 1030, Approx Total Volume - exp 1500 11/04/24 (refrigerated) Administer concurrently with leucovorin. Hazardous Chemotherapy Drug: Use appropriate PPE. Antineoplastic Irritant with Vesicant Potential. Flush line with D5W before and after administration. Start: 10-12-2024 End: 10-12-2024 119.4 mg (60 mg/m2 1.99 m2 T reatment Plan BSA from Recorded weight), INTRAVENOUS, Administer over 2 Hours, ONCE, 1 dose, On Thu10/12/24 at 1200, Approx Total Volume - exp 0830 10/22/24 (refrigerated) Administer concurrently with leucovorin. Hazardous Chemotherapy Drug: Use appropriate PPE. Antineoplastic Irritant with Vesicant Potential. Flush line with D5W before and after administration. Start: 09-28-2024 End: 09-28-2024 119.4 mg (60 mg/m2 1.99 m2 T reatment Plan BSA from Recorded weight), INTRAVENOUS, Administer over 2 Hours, ONCE, 1 dose, On Thu09/28/24 at 1130, Approx Total Volume - Expires: 10/07/24 @ 1330 (refrigerated) Administer concurrently with leucovorin. Hazardous Chemotherapy Drug: Use appropriate PPE. Antineoplastic Irritant with Vesicant Potential. Flush line with D5W before and after administration. Start: 09-14-2024 End: 09-14-2024 119.4 mg (60 mg/m2 1.99 m2 T reatment Plan BSA from Recorded weight), INTRAVENOUS, Administer over 2 Hours, ONCE, 1 dose, On Thu09/14/24 at 1100, Approx Total Volume - Expires: 09/15/24 @ 1600 Administer concurrently with leucovorin. Hazardous Chemotherapy Drug: Use appropriate PPE. Antineoplastic Irritant with Vesicant Potential. Flush line with D5W before and after administration. Start: 08-31-2024 End: 08-31-2024 119.4 mg (60 mg/m2 1.99 m2 T reatment Plan BSA from Recorded weight), INTRAVENOUS, Administer over 2 Hours, ONCE, 1 dose, On Thu08/31/24 at 1030, Approx Total Volume - Expires: 09/01/24 @ 1530 Administer concurrently with leucovorin. Hazardous Chemotherapy Drug: Use appropriate PPE. Antineoplastic Irritant with Vesicant Potential. Flush line with D5W before and after administration. Start: 08-17-2024 End: 08-17-2024 119.4 mg (60 mg/m2 1.99 m2 T reatment Plan BSA from Recorded weight), INTRAVENOUS, Administer over 2 Hours, ONCE, 1 dose, On Thu08/17/24 at 1030, Administer concurrently with leucovorin. exp 829 (refrigerated) Hazardous Chemotherapy Drug: Use appropriate PPE. Antineoplastic Irritant with Vesicant Potential. Flush line with D5W before and after administration. Start: 08-03-2024 End: 08-03-2024 119.4 mg (60 mg/m2 1.99 m2 T reatment Plan BSA from Recorded weight), INTRAVENOUS, Administer over 2 Hours, ONCE, 1 dose, On Thu08/03/24 at 1030, Administer concurrently with leucovorin. exp 82908/13/24 (refrigerated) Hazardous Chemotherapy Drug: Use appropriate PPE. Antineoplastic Irritant with Vesicant Potential. Flush line with D5W before and after administration. Start: 07-20-2024 End: 07-20-2024 119.4 mg (60 mg/m2 1.99 m2 T reatment Plan BSA from Recorded weight), INTRAVENOUS, Administer over 2 Hours, ONCE, 1 dose, On Thu07/20/24 at 1130, Approx Total Volume - Expires: 07/21/24 @ 1635 Administer concurrently with leucovorin. Hazardous Chemotherapy Drug: Use appropriate PPE. Antineoplastic Irritant with Vesicant Potential. Flush line with D5W before and after administration. Start: 06-21-2024 End: 06-21-2024 124.2 mg (60 mg/m2 2.07 m2 T reatment Plan BSA from Recorded weight), INTRAVENOUS, Administer over 2 Hours, ONCE, 1 dose, On Thu06/21/24 at 1000, Administer concurrently with leucovorin.exp 1100 06/30/24 (refrigerated) Hazardous Chemotherapy Drug: Use appropriate PPE. Antineoplastic Irritant with Vesicant Potential. Flush line with D5W before and after administration. Start: 06-08-2024 End: 06-08-2024 124.2 mg (60 mg/m2 2.07 m2 T reatment Plan BSA from Recorded weight), INTRAVENOUS, Administer over 2 Hours, ONCE, 1 dose, On Thu06/08/24 at 1100, Administer concurrently with leucovorin. exp 0906/18/24 (refrigerated) Hazardous Chemotherapy Drug: Use appropriate PPE. Antineoplastic Irritant with Vesicant Potential. Flush line with D5W before and after administration. Start: 05-25-2024 End: 05-25-2024 124.2 mg (60 mg/m2 2.07 m2 T reatment Plan BSA from Recorded weight), INTRAVENOUS, Administer over 2 Hours, ONCE, 1 dose, On Thu05/25/24 at 1030, Administer concurrently with leucovorin.exp 1400 06/02/24 (refrigerated) Hazardous Chemotherapy Drug: Use appropriate PPE. Antineoplastic Irritant with Vesicant Potential. Flush line with D5W before and after administration. Start: 05-11-2024 End: 05-11-2024 124.2 mg (60 mg/m2 2.07 m2 T reatment Plan BSA from Recorded weight), INTRAVENOUS, Administer over 2 Hours, ONCE, 1 dose, On Thu05/11/24 at 1100, Administer concurrently with leucovorin.exp 89905/21/24 (refrigerated) Hazardous Chemotherapy Drug: Use appropriate PPE. Antineoplastic Irritant with Vesicant Potential. Flush line with D5W before and after administration. Start: 04-27-2024 End: 04-27-2024 124.2 mg (60 mg/m2 2.07 m2 T reatment Plan BSA from Recorded weight), INTRAVENOUS, Administer over 2 Hours, ONCE, 1 dose, On Thu04/27/24 at 1030, Administer concurrently with leucovorin.exp 1400 05/05/24 (refrigerated) Hazardous Chemotherapy Drug: Use appropriate PPE. Antineoplastic Irritant with Vesicant Potential. Flush line with D5W before and after administration. Start: 04-13-2024 End: 04-13-2024 124.2 mg (60 mg/m2 2.07 m2 T reatment Plan BSA from Recorded weight), INTRAVENOUS, Administer over 2 Hours, ONCE, 1 dose, On Thu04/13/24 at 1100, Administer concurrently with leucovorin.exp 1400 04/21/24 (refrigerated) Hazardous Chemotherapy Drug: Use appropriate PPE. Antineoplastic Irritant with Vesicant Potential. Flush line with D5W before and after administration. Start: 03-30-2024 End: 03-30-2024 124.2 mg (60 mg/m2 2.07 m2 T reatment Plan BSA from Recorded weight), INTRAVENOUS, Administer over 2 Hours, ONCE, 1 dose, On Thu03/30/24 at 1100, Administer concurrently with leucovorin. exp 1100 04/07/24 (refrigerated) Hazardous Chemotherapy Drug: Use appropriate PPE. Antineoplastic Irritant with Vesicant Potential. Flush line with D5W before and after administration. Start: 03-02-2024 End: 03-02-2024 175.95 mg (85 mg/m2 2.07 m2 Treatment Plan BSA from Recorded weight), INTRAVENOUS, Administer over 2 Hours, ONCE, 1 dose, On Thu03/02/24 at 1030, Approx Total Volume - Expires: 03/03/24 @ 1520 Administer concurrently with leucovorin. Hazardous Chemotherapy Drug: Use appropriate PPE. Antineoplastic Irritant with Vesicant Potential. Flush line with D5W before and after administration. Start: 02-17-2024 End: 02-17-2024 175.95 mg (85 mg/m2 2.07 m2 Treatment Plan BSA from Recorded weight), INTRAVENOUS, Administer over 2 Hours, ONCE, 1 dose, On Thu02/17/24 at 0930, Administer concurrently with leucovorin. exp 1400 02/24/24 (refrigerated) Hazardous Chemotherapy Drug: Use appropriate PPE. Antineoplastic Irritant with Vesicant Potential. Flush line with D5W before and after administration. Start: 01-20-2024 End: 01-20-2024 oxaliplatin 175.95 mg in D5W 575.19 mL (ELOXATIN) Start: 01-06-2024 End: 01-06-2024 oxaliplatin 175.95 mg in D5W 575.19 mL (ELOXATIN) 5 ml palonosetron 0.05 mg/ml injection (20 sources) Serotonin-3 Receptor Antagonist Start: 12-05-2024 End: 12-05-2024 0.25 mg, INTRAVENOUS, ONCE, 1 dose, On Thu12/05/24 at 0900, Flush IV line with NS prior to and following administration. Start: 10-26-2024 End: 10-26-2024 0.25 mg, INTRAVENOUS, ONCE, 1 dose, On Thu10/26/24 at 0930, Flush IV line with NS prior to and following administration. Start: 10-12-2024 End: 10-12-2024 0.25 mg, INTRAVENOUS, ONCE, 1 dose, On Thu10/12/24 at 1100, Flush IV line with NS prior to and following administration. Start: 09-28-2024 End: 09-28-2024 0.25 mg, INTRAVENOUS, ONCE, 1 dose, On Thu09/28/24 at 1030, Flush IV line with NS prior to and following administration. Start: 09-14-2024 End: 09-14-2024 0.25 mg, INTRAVENOUS, ONCE, 1 dose, On Thu09/14/24 at 1000, Flush IV line with NS prior to and following administration. Start: 08-31-2024 End: 08-31-2024 0.25 mg, INTRAVENOUS, ONCE, 1 dose, On Thu08/31/24 at 0930, Flush IV line with NS prior to and following administration. Start: 08-17-2024 End: 08-17-2024 0.25 mg, INTRAVENOUS, ONCE, 1 dose, On Thu08/17/24 at 0930, Flush IV line with NS prior to and following administration. Start: 08-03-2024 End: 08-03-2024 0.25 mg, INTRAVENOUS, ONCE, 1 dose, On Thu08/03/24 at 0930, Flush IV line with NS prior to and following administration. Start: 07-20-2024 End: 07-20-2024 0.25 mg, INTRAVENOUS, ONCE, 1 dose, On Thu07/20/24 at 1030, Flush IV line with NS prior to and following administration. Start: 06-21-2024 End: 06-21-2024 0.25 mg, INTRAVENOUS, ONCE, 1 dose, On Thu06/21/24 at 0900, Flush IV line with NS prior to and following administration. Start: 06-08-2024 End: 06-08-2024 0.25 mg, INTRAVENOUS, ONCE, 1 dose, On Thu06/08/24 at 1000, Flush IV line with NS prior to and following administration. Start: 05-25-2024 End: 05-25-2024 0.25 mg, INTRAVENOUS, ONCE, 1 dose, On Thu05/25/24 at 0930, Flush IV line with NS prior to and following administration. Start: 05-11-2024 End: 05-11-2024 0.25 mg, INTRAVENOUS, ONCE, 1 dose, On Thu05/11/24 at 1000, Flush IV line with NS prior to and following administration. Start: 04-27-2024 End: 04-27-2024 0.25 mg, INTRAVENOUS, ONCE, 1 dose, On Thu04/27/24 at 0930, Flush IV line with NS prior to and following administration. Start: 04-13-2024 End: 04-13-2024 0.25 mg, INTRAVENOUS, ONCE, 1 dose, On Thu04/13/24 at 1000, Flush IV line with NS prior to and following administration. Start: 03-30-2024 End: 03-30-2024 0.25 mg, INTRAVENOUS, ONCE, 1 dose, On Thu03/30/24 at 1000, Flush IV line with NS prior to and following administration. Start: 03-02-2024 End: 03-02-2024 0.25 mg, INTRAVENOUS, ONCE, 1 dose, On Thu03/02/24 at 0930, Flush IV line with NS prior to and following administration. Start: 02-17-2024 End: 02-17-2024 0.25 mg, INTRAVENOUS, ONCE, 1 dose, On Thu02/17/24 at 0830, Flush IV line with NS prior to and following administration. Start: 01-20-2024 End: 01-20-2024 palonosetron 0.25 mg injecti on (ALOXI) Start: 01-06-2024 End: 01-06-2024 palonosetron 0.25 mg injecti on (ALOXI) pantoprazole 40 mg injection (1 source) Proton Pump Inhibitor Start: 10-19-2023 End: 10-29-2023 take 40 mg intravenously every twelve hours 40 mg, Intravenous, Every 12 hours, First dose on Thu10/19/23 at 1200, Dilute each vial with 10 mL of 0.9% NaCl. 0.6 ml [id number]-jmdb 10 mg/ml prefilled syringe (9 sources) Leukocyte Growth Factor Start: 12-07-2024 End: 12-07-2024 6 mg, SUBCUTANEOUS, ONCE, 1 dose, On Thu12/07/24 at 1030, Refrigerate - Protect From Light - Do Not Shake - Allow prefilled syringe to reach room temperature for at least 30 minutes prior to injection. Start: 10-28-2024 End: 10-28-2024 6 mg, SUBCUTANEOUS, ONCE, 1 dose, On Thu10/28/24 at 1130, Refrigerate - Protect From Light - Do Not Shake - Allow prefilled syringe to reach room temperature for at least 30 minutes prior to injection. Start: 10-14-2024 End: 10-14-2024 6 mg, SUBCUTANEOUS, ONCE, 1 dose, On Thu10/14/24 at 1330, Refrigerate - Protect From Light - Do Not Shake - Allow prefilled syringe to reach room temperature for at least 30 minutes prior to injection. Start: 09-30-2024 End: 09-30-2024 6 mg, SUBCUTANEOUS, ONCE, 1 dose, On Thu09/30/24 at 1300, Refrigerate - Protect From Light - Do Not Shake - Allow prefilled syringe to reach room temperature for at least 30 minutes prior to injection. Start: 09-16-2024 End: 09-16-2024 6 mg, SUBCUTANEOUS, ONCE, 1 dose, On Thu09/16/24 at 1130, Refrigerate - Protect From Light - Do Not Shake - Allow prefilled syringe to reach room temperature for at least 30 minutes prior to injection. Start: 09-02-2024 End: 09-02-2024 6 mg, SUBCUTANEOUS, ONCE, 1 dose, On Thu09/02/24 at 1230, Refrigerate - Protect From Light - Do Not Shake - Allow prefilled syringe to reach room temperature for at least 30 minutes prior to injection. Start: 08-19-2024 End: 08-19-2024 6 mg, SUBCUTANEOUS, ONCE, 1 dose, On Thu08/19/24 at 1130, Refrigerate - Protect From Light - Do Not Shake - Allow prefilled syringe to reach room temperature for at least 30 minutes prior to injection. Start: 08-05-2024 End: 08-05-2024 6 mg, SUBCUTANEOUS, ONCE, 1 dose, On Thu08/05/24 at 1130, Refrigerate - Protect From Light - Do Not Shake - Allow prefilled syringe to reach room temperature for at least 30 minutes prior to injection. Start: 07-22-2024 End: 07-22-2024 6 mg, SUBCUTANEOUS, ONCE, 1 dose, On Thu07/22/24 at 1230, Refrigerate - Protect From Light - Do Not Shake - Allow prefilled syringe to reach room temperature for at least 30 minutes prior to injection. phenylephrine hydrochloride 25 mg/ml ophthalmic solution (2 sources) alpha-1 Adrenergic Agonist Start: 07-25-2024 End: 07-25-2024 PHENYLephrine 2.5 % 1 Drop (AK-DILATE, DAVID-SYNEPHRINE) Start: 07-25-2024 End: 07-25-2024 1 Drop, BOTH EYES, ONCE, 1 d ose, On Thu07/25/24 at 1430, FOR OPHTHALMIC USE ONLY PROTECT FROM LIGHT polyethylene glycol 3350 [id number] mg powder for oral solution (1 source) Osmotic Laxative Start: 2023 End: 10-29-2023 17 g, Oral, Daily, First dose on 10/25/23 at 1100 proparacaine hydrochloride 5 mg/ml ophthalmic solution (2 sources) Local Anesthetic Start: 07-25-2024 End: 07-25-2024 proparacaine 0.5 % 1 Drop (ALCAINE) Start: 07-25-2024 End: 07-25-2024 1 Drop, BOTH EYES, ONCE, 1 d ose, On Thu07/25/24 at 1430, FOR THE EYE 10 ml propofol 10 mg/ml injection (1 source) General Anesthetic Start: 10-21-2023 End: 10-21-2023 propofoL (DIPRIVAN) injection rocuronium bromide 10 mg/ml injectable solution (1 source) Nondepolarizing Neuromuscular Rinku Start: 10-21-2023 End: 10-21-2023 rocuronium (ZEMURON) injection 1000 ml sodium chloride 9 mg/ml injection (2 sources) Start: 12-15-2024 End: 12-15-2024 1,000 mL, INTRAVENOUS, at 500 mL/hr, Administer over 2 Hours, ONCE, 1 dose, On [place]hl[place] 12/15/24 at 1130 Start: 02-02-2024 End: 02-02-2024 NaCl 0.9% iv infusion 5 ml sugammadex 100 mg/ml injection (1 source) Start: 10-21-2023 End: 10-23-2023 sugammadex (BRIDION) injection traZODone hydrochloride 50 mg oral tablet (15 sources) Serotonin Reuptake Inhibitor Start: 10-19-2023 End: 10-29-2023 50 mg, Oral, Nightly PRN, sleep, Starting on Thu10/19/23 at 1058, May repeat times 1 in 30 minutes if still awake. Start: 07-03-2022 End: 11-13-2023 take 0.5 tablet by mouth once daily traZODone (DESYREL) 50 MG tablet Take 0.5 (one-half) tablet (25 mg total) by mouth nightly . 0 04/23/2023 Active Start: 07-03-2022 End: 07-03-2023 take 1 tablet by mouth once daily at bedtime traZODone (Desyrel) 50 mg tablet Take 1 tablet (50 mg) by mouth once daily at bedtime. 0 07/03/2022 07/03/2023 Discontinued (Ineffective) tropicamide 10 mg/ml ophthalmic solution (2 sources) Anticholinergic Start: 07-25-2024 End: 07-25-2024 tropicamide 1 % 1 Drop (MYDRIACYL) Start: 07-25-2024 End: 07-25-2024 1 Drop, BOTH EYES, ONCE, 1 d ose, On Thu07/25/24 at 1430, FOR THE EYE vitamin b12 1 mg/ml injectable solution (13 sources) Vitamin B12 Start: 11-23-2024 End: 11-23-2024 inject 1 dose by intramuscular injection once 1,000 mcg, INTRAMUSCULAR, ONCE, 1 dose, On Thu11/23/24 at 1130 Start: 10-26-2024 End: 10-26-2024 inject 1 dose by intramuscular injection once 1,000 mcg, INTRAMUSCULAR, ONCE, 1 dose, On Thu10/26/24 at 1030 Start: 09-28-2024 End: 09-28-2024 inject 1 dose by intramuscular injection once 1,000 mcg, INTRAMUSCULAR, ONCE, 1 dose, On Thu09/28/24 at 1100 Start: 08-31-2024 End: 08-31-2024 inject 1 dose by intramuscular injection once 1,000 mcg, INTRAMUSCULAR, ONCE, 1 dose, On Thu08/31/24 at 1300 Start: 08-03-2024 End: 08-03-2024 inject 1 dose by intramuscular injection once 1,000 mcg, INTRAMUSCULAR, ONCE, 1 dose, On Thu08/03/24 at 0930 Start: 07-06-2024 End: 07-06-2024 inject 1 dose by intramuscular injection once 1,000 mcg, INTRAMUSCULAR, ONCE, 1 dose, On Thu07/06/24 at 0930 Start: 06-08-2024 End: 06-08-2024 inject 1 dose by intramuscular injection once 1,000 mcg, INTRAMUSCULAR, ONCE, 1 dose, On Thu06/08/24 at 1000 Start: 05-11-2024 End: 05-11-2024 inject 1 dose by intramuscular injection once 1,000 mcg, INTRAMUSCULAR, ONCE, 1 dose, On Thu05/11/24 at 1000 Start: 04-15-2024 End: 04-15-2024 inject 1 dose by intramuscular injection once 1,000 mcg, INTRAMUSCULAR, ONCE, 1 dose, On Thu04/15/24 at 1200 Start: 04-08-2024 End: 04-08-2024 inject 1 dose by intramuscular injection once 1,000 mcg, INTRAMUSCULAR, ONCE, 1 dose, On Thu04/08/24 at 0930 Start: 03-30-2024 End: 03-30-2024 inject 1 dose by intramuscular injection once 1,000 mcg, INTRAMUSCULAR, ONCE, 1 dose, On Thu03/30/24 at 1000 Start: 03-23-2024 End: 03-23-2024 inject 1 dose by intramuscular injection once 1,000 mcg, INTRAMUSCULAR, ONCE, 1 dose, On Thu03/23/24 at 1100 Start: 03-16-2024 End: 03-16-2024 inject 1 dose by intramuscular injection once 1,000 mcg, INTRAMUSCULAR, ONCE, 1 dose, On Thu03/16/24 at 1100 (3 sources) Start: 10-23-2023 End: 10-29-2023 [Order 1 Start] Name: naloxo ne (NARCAN) injection 0.1 mg Signed Summary: 0.1 mg, Intravenous, As needed, opioid reversal, For respiratory rate less than or equal to 8 per minute., Starting on Thu10/23/23 at 1510, Mix nalOXone (NARCAN) 0.4 mg (1mL) with 9 mL of Normal Saline to total 10 mL. Administer 0.1 mg (2.5mL) IV Push every 2 minutes until respiratory rate is 10 or greater. [Order 1 End] [Order 2 Start] Name: Notify physician Signed Summary: STAT, Until discontinued, Starting on Thu10/23/23 at 1510, Until Specified, Respiratory rate less than: 8, For respiratory rate less than or equal to 8, notify physician and/or appropriate staff for additional orders. [Order 2 End] [Order 3 Start] Name: naloxone (NARCAN) injection 0.4 mg Signed Summary: 0.4 mg, Intravenous, As needed, opioid reversal, patient is pulseless, breathless, and unresponsive, Starting on Thu10/23/23 at 1510, Call a code first, then administer naloxone dose undiluted IV Push over 30 seconds. [Order 3 End] Start: 10-19-2023 End: 10-29-2023 [Order 1 Start] Name: insuli n lispro (AdmeLOG,HumaLOG) injection 0-15 Units Signed Summary: 0-15 Units, Subcutaneous, At bedtime, First dose on Thu10/19/23 at 2100, IF initial POC glucose is greater than 250, administer insulin as directed and re-check POC glucose no sooner than 2 hours after administration. THEN notify provider if POC glucose is still greater than 250., For nightly BG greater than 250, give: Half ( ) Corrective Scale, Nightly Prandial Snack Dosing Method: NO Snack Coverage - Corrective Scale ONLY, Nightly Insulin Dose Corrective Scale: FOLLOW DAYTIME Prandial Corrective Scale, Corrective Insulin Regimen (select desired scale to cover BG result): USUAL Sensitivity Scale, (REMINDER: Nightly Insulin Dose Corrective Scale will be automatically calculated to be of the daytime scale), Dose Reduction Threshold (at meals) for POC Blood Glucose less than or equal to: 80, For Downtime Calculator, use: Insulin SC NIGHTtime [Order 1 End] [Order 2 Start] Name: Notify physician Signed Summary: Routine, Until discontinued, Starting on Thu10/19/23 at 1101, Until Specified, Other: IF HS POC Glucose RE-CHECK Greater than 250, If initial HS POC glucose is greater than 250, administer insulin as directed and re-check POC glucose no sooner than 2 hours after administration. IF RE-CHECK POC glucose is still greater than 250, notify provider. [Order 2 End] Start: 10-19-2023 End: 10-29-2023 [Order 1 Start] Name: Saline lock IV Signed Summary: Routine, Continuous, Starting on Thu10/19/23 at 1054, Until Specified [Order 1 End] [Order 2 Start] Name: sodium chloride (PF) (NS) flush 5 mL Signed Summary: 5 mL, Intravenous, As needed, line care, Starting on Thu10/19/23 at 1053 [Order 2 End] [Order 3 Start] Name: sodium chloride (PF) (NS) flush 5 mL Signed Summary: 5 mL, Intravenous, Every 8 hours scheduled, First dose on Thu10/19/23 at 1400, Saline lock [Order 3 End] [Order 4 Start] Name: sodium chloride 0.9% (NS) Signed Summary: 0-150 mL/hr, Intravenous, As needed, To flush line after IV infusions when no maintenance IV ordered or a compatibility issue. Infuse 20ml at the same rate as the secondary infusion, Starting on Thu10/19/23 at 1053, Run as Primary IV. NOT intended for KVO. [Order 4 End] (1 source) Start: 10-21-2023 End: 10-29-2023 Topical, As needed, dry skin , Starting on Thu10/21/23 at 0849, Apply to nose on nose (1 source) Start: 10-20-2023 End: 10-20-2023 75 mL, Intravenous, Once in imaging, contrast, Starting on Thu10/20/23 at 1111, For 1 dose Problems Active Problems Problem Classification Problem Date Documented Da te Episodic/Chronic Abdominal pain (20 sources) Right upper quadrant pain; Translations: [Abdominal pain, right upper quadrant] Onset: 2 Resolved: 3 Episodic Acute and unspecified renal failure (1 source) Acute kidney failure, unspecified; Translations: [ANTHONY (acute kidney injury)] Onset: 5 Episodic Blindness and vision defects (3 sources) Bilateral hyperopia of eyes; Translations: [Hypermetropia, bilateral] 07-25-2024 Episodic Cancer of colon (20 sources) Adenocarcinoma of large intestine; Translations: [Malignant neoplasm of colon, unspecified] Onset: 4 10-28-2023 Chronic Cancer of colon (2 sources) History of malignant neoplasm of colon; Translations: [Personal history of other malignant neoplasm of large intestine] 02-09-2024 Episodic Cardiac dysrhythmias (1 source) Tachycardia; Translations: [Tachycardia, unspecified] 01-09-2025 Episodic Cataract (1 source) Bilateral senile combined form cataracts of eyes; Translations: [Combined forms of age-related cataract, bilateral] 07-25-2024 Chronic Chronic obstructive pulmonary disease and bronchiectasis (1 source) Simple chronic bronchitis; Translations: [Simple chronic bronchitis] 11-30-2023 Chronic Complications of surgical procedures or medical care (20 sources) Anemia due to antineoplastic chemotherapy; Translations: [Antineoplastic chemotherapy induced anemia] Onset: 5 08-17-2024 Chronic Coronary atherosclerosis and other heart disease (11 sources) Coronary atherosclerosis; Translations: [Atherosclerotic heart disease of [place] coronary artery without angina pectoris] Onset: 2 Chronic Deficiency and other anemia (20 sources) Iron deficiency anemia due to blood loss; Translations: [Iron deficiency anemia secondary to blood loss (chronic)] Onset: 4 12-16-2023 Chronic Deficiency and other anemia (1 source) Iron deficiency anemia secondary to blood loss (chronic); Translations: [Iron deficiency anemia due to chronic blood loss] Onset: 4 Chronic Deficiency and other anemia (14 sources) Anemia; Translations: [Anemia, unspecified] Onset: 4 10-19-2023 Episodic Deficiency and other anemia (8 sources) Anemia, unspecified; Translations: [Anemia, unspecified] Onset: 4 Episodic Diabetes mellitus without complication (20 sources) Type 2 diabetes mellitus; Translations: [Diabetes mellitus without mention of complication, type II or unspecified type, not stated as uncontrolled] Onset: 3 12-31-2022 Chronic Disorders of lipid metabolism (20 sources) Hyperlipidemia; Translations: [Other and unspecified hyperlipidemia] Onset: 3 12-31-2022 Chronic Diverticulosis and diverticulitis (1 source) Diverticulosis of large intestine without perforation or abscess without bleeding; Translations: [Dvrtclos of lg int w/o perforation or abscess w/o bleeding] Onset: 2 Chronic Esophageal disorders (20 sources) Gastroesophageal reflux disease; Translations: [Esophageal reflux] Onset: 2 Chronic Essential hypertension (20 sources) Benign essential hypertension; Translations: [Benign essential hypertension] Onset: 3 12-31-2022 Chronic Hyperplasia of prostate (1 source) Benign prostatic hyperplasia without lower urinary tract symptoms; Translations: [Benign prostatic hyperplasia without lower urinry tract symp] Onset: 2 Chronic Malaise and fatigue (1 source) Fatigue; Translations: [Other fatigue] 05-18-2023 Episodic Miscellaneous mental health disorders (5 sources) Primary insomnia; Translations: [Primary insomnia] Onset: 3 12-31-2022 Chronic Nausea and vomiting (3 sources) Nausea and vomiting; Translations: [Nausea with vomiting, unspecified] 01-09-2025 Episodic Osteoarthritis (20 sources) Degenerative joint disease involving multiple joints; Translations: [Osteoarthrosis, generalized, multiple sites] Onset: 3 12-29-2022 Chronic Other aftercare (1 source) Under care of palliative care physician; Translations: [Encounter for palliative care] 06-14-2024 Episodic Other eye disorders (1 source) Bilateral vitreous floaters; Translations: [Other vitreous opacities, bilateral] 07-25-2024 Chronic Other gastrointestinal disorders (20 sources) Malabsorption - iron; Translations: [Intestinal malabsorption, unspecified] Onset: 4 12-16-2023 Chronic Other gastrointestinal disorders (1 source) Intestinal malabsorption, unspecified; 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)] Onset: 4 Chronic Other gastrointestinal disorders (8 sources) Other specified diseases of intestine; Translations: [Other specified disorders of intestine] Onset: 4 10-21-2023 Episodic Other gastrointestinal disorders (1 source) Diarrhea of presumed infectious origin; Translations: [Diarrhea, unspecified] 02-02-2024 Episodic Other gastrointestinal disorders (1 source) Diarrhea, unspecified; Translations: [Diarrhea, unspecified type] Onset: 5 Episodic Other gastrointestinal disorders (3 sources) Diarrhea; Translations: [Diarrhea, unspecified] 01-09-2025 Episodic Other infections; including parasitic (1 source) Personal history of other infectious and parasitic diseases; Translations: [History of COVID-19] 07-11-2024 Episodic Other injuries and conditions due to external causes (2 sources) Angioneurotic edema, initial encounter; Translations: [Angioneurotic edema, initial encounter] Onset: 4 Episodic Other lower respiratory disease (20 sources) Dyspnea; Translations: [Dyspnea, unspecified] Onset: 2 Episodic Other lower respiratory disease (1 source) Hypoxia; Translations: [Hypoxemia] 11-13-2023 Episodic Other lower respiratory disease (2 sources) Shortness of breath; Translations: [Shortness of breath] Onset: 4 Episodic Other lower respiratory disease (1 source) Lower respiratory tract infection; Translations: [Unspecified acute lower respiratory infection] 06-28-2024 Episodic Other lower respiratory disease (2 sources) Orthopnea; Translations: [Orthopnea] 01-15-2022 Episodic Other lower respiratory disease (1 source) Productive cough ; Translations: [Productive cough] 01-09-2025 Episodic Other nutritional; endocrine; and metabolic disorders (9 sources) Morbid obesity; Translations: [Morbid (severe) obesity due to excess calories] Onset: 3 12-31-2022 Chronic Other nutritional; endocrine; and metabolic disorders (4 sources) Morbid (severe) obesity due to excess calories; Translations: [Morbid (severe) obesity due to excess calories (Multi)] Onset: 3 Chronic Other nutritional; endocrine; and metabolic disorders (20 sources) Obesity; Translations: [Class 1 obesity with serious comorbidity and body mass index (BMI) of 33.0 to 33.9 in adult, unspecified obesity type] 07-11-2024 Chronic Other nutritional; endocrine; and metabolic disorders (20 sources) Hypomagnesemia; Translations: [Hypomagnesemia] Onset: 5 07-20-2024 Chronic Other upper respiratory infections (3 sources) Acute pharyngitis, unspecified; Translations: [Sore throat symptom] Onset: 3 Episodic Pneumonia (except that caused by tuberculosis or sexually transmitted disease) (2 sources) Pneumonia; Translations: [Pneumonia, unspecified organism] 01-09-2025 Episodic Residual codes; unclassified (20 sources) Sleep apnea; Translations: [Unspecified sleep apnea] Onset: 3 12-29-2022 Chronic Residual codes; unclassified (20 sources) Obstructive sleep apnea syndrome; Translations: [Obstructive sleep apnea (adult) (pediatric)] 12-31-2022 Chronic Residual codes; unclassified (3 sources) Obstructive sleep apnea (adult) (pediatric); Translations: [Obstructive sleep apnea (adult) (pediatric)] Onset: 3 Chronic Residual codes; unclassified (1 source) History of partial resection of colon; Translations: [Acquired absence of other specified parts of digestive tract] 10-29-2023 Episodic Residual codes; unclassified (2 sources) Acquired absence of other specified parts of digestive tract; Translations: [Acquired absence of other specified parts of digestive tract] Onset: 4 Episodic Residual codes; unclassified (2 sources) History of antineoplastic chemotherapy; Translations: [Personal history of antineoplastic chemotherapy] 02-09-2024 Episodic Residual codes; unclassified (1 source) Pale complexion; Translations: [Pallor] 01-09-2025 Episodic Respiratory failure; insufficiency; arrest (adult) (3 sources) Acute respiratory failure; Translations: [Acute respiratory failure with hypoxia] Onset: 4 10-19-2023 Episodic Secondary malignancies (3 sources) Secondary malignant neoplasm of liver and intrahepatic bile duct; Translations: [Secondary malignant neoplasm of liver and intrahepatic bile duct] Onset: 4 Chronic Secondary malignancies (4 sources) Secondary malignant neoplasm of lung 10-12-2024 Chronic Secondary malignancies (1 source) Secondary malignant neoplasm of unspecified lung; Translations: [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)] Onset: 4 Chronic Spondylosis; intervertebral disc disorders; other back problems (20 sources) Arthritis of lumbosacral spine; Translations: [Lumbosacral spondylosis without myelopathy] Onset: 2 12-31-2022 Chronic Unclassified (2 sources) Colon Cancer Onset: 4 Unclassified (2 sources) 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) 10-12-2024 Unclassified (1 source) Chemotherapy Treatment Onset: 4 Urinary tract infections (2 sources) Acute cystitis; Translations: [Acute cystitis without hematuria] 02-02-2024 Episodic Past or Other Problems Problem Classification Problem Date Documented Da te Episodic/Chronic Deficiency and other anemia (20 sources) Nutritional anemia; Translations: [Vitamin B12 deficiency anemia, unspecified] Onset: 4 03-16-2024 Episodic Deficiency and other anemia (1 source) Vitamin B12 deficiency anemia, unspecified; Translations: [Anemia due to vitamin B12 deficiency, unspecified B12 deficiency type] Onset: 4 Episodic E Codes: Adverse effects of medical drugs (2 sources) Adverse effect of antineoplastic and immunosuppressive drugs, initial encounter; Translations: [Anemia due to antineoplastic chemotherapy] Onset: 5 Episodic Fluid and electrolyte disorders (20 sources) Dehydration; Translations: [Dehydration] Onset: 5 02-02-2024 Episodic Immunizations and screening for infectious disease (20 sources) Patient encounter status; Translations: [Other specified vaccination] Onset: 4 12-31-2022 Episodic Nonspecific chest pain (20 sources) Chest pain; Translations: [Chest pain, unspecified] Onset: 2 Resolved: 3 01-28-2022 Episodic Open wounds of extremities (20 sources) Open wound of finger; Translations: [Open wound of finger(s), without mention of complication] Onset: 3 Resolved: 3 12-29-2022 Episodic Other aftercare (1 source) long term care administrator (current) use of insulin; Translations: [Controlled type 2 diabetes mellitus without complication, with long-term current use of insulin (HCC)] Onset: 4 Episodic Other gastrointestinal disorders (20 sources) Diarrhea due to drug; Translations: [Toxic gastroenteritis and colitis] Onset: 5 05-24-2024 Episodic Other gastrointestinal disorders (1 source) Toxic gastroenteritis and colitis; Translations: [Chemotherapy induced diarrhea] Onset: 5 Episodic Other hematologic conditions (20 sources) History of anemia vitamin B12 deficient; Translations: [Personal history of diseases of the blood and blood-forming organs and certain disorders involving the immune mechanism] Onset: 5 08-17-2024 Episodic Other hematologic conditions (1 source) Personal history of diseases of the blood and blood-forming organs and certain disorders involving the immune mechanism; Translations: [History of anemia due to vitamin B12 deficiency] Onset: 5 Episodic Other nutritional; endocrine; and metabolic disorders (20 sources) Body mass index 30+ - obesity; Translations: [Obesity, unspecified] Onset: 3 Resolved: 3 12-31-2022 Chronic Other nutritional; endocrine; and metabolic disorders (20 sources) History of iron deficiency; Translations: [Personal history of other endocrine, nutritional and metabolic disease] Onset: 4 03-29-2024 Episodic Other nutritional; endocrine; and metabolic disorders (1 source) Personal history of other endocrine, nutritional and metabolic disease; Translations: [History of iron deficiency] Onset: 4 Episodic Other screening for suspected conditions (not mental disorders or infectious disease) (2 sources) Encounter for screening for malignant neoplasm of prostate; Translations: [Encounter for screening for malignant neoplasm of prostate] Onset: 3 Episodic Residual codes; unclassified (20 sources) Insomnia; Translations: [Insomnia, unspecified] Onset: 3 12-29-2022 Episodic Rheumatoid arthritis and related disease (20 sources) Inflammatory polyarthropathy; 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] Onset: 2 Resolved: 3 Chronic Spondylosis; intervertebral disc disorders; other back problems (20 sources) Neurogenic claudication; Translations: [Spinal stenosis, lumbar region, with neurogenic claudication] Onset: 2 Episodic Unclassified (4 sources) Onset: 4 Resolved: 4 07-03-2023 Results Test Name Value Interpretation Reference Range Facility Absolute lymphocyte countOrd ered By: Alexandro Navarro on 01-09-2025 Lymphocytes Auto (Unsp spec) [#/Vol] 0.82 10*3/uL Low 0.83-4.51 [facility] Absolute neutrophil countOrd ered By: Alexandro Navarro on 01-09-2025 Neutrophils (Bld) [#/Vol] 11.9 10*3/uL High 2.0-7.7 [facility] Activated partial thrombopla stin time (aPTT) in platelet poor plasma by coagulation aOrdered By: Alexandro Navarro on 01-09-2025 aPTT Coag (PPP) [Time] 39.6 s High 24.1-36.2 [facility] Anion gap in Serum or Plasma Ordered By: Alexandro Navarro on 01-09-2025 Anion gap [Moles/Vol] 11 mmol/L 5-15 [facility] Automated lymphocyte count a s percentage of total leukocytesOrdered By: Alexandro Navarro on 01-09-2025 Lymphocytes/100 WBC Auto (Unsp spec) 6.0 % Low 19-41 [facility] BUN/creatinine ratioOrdered By: Alexandro Navarro on 01-09-2025 Urea nitrogen/Creatinine [Mass ratio] 17.7 mg/mg 10-20 [facility] Basophil percentageOrdered B y: Alexandro Navarro on 01-09-2025 Basophils/100 WBC (Bld) 0.3 % 0-1 [facility] Bilirubin, totalOrdered By: Alexandro Navarro on 01-09-2025 Bilirubin [Mass/Vol] 0.93 mg/dL 0.00-1.30 [facility] Blood manual differential co mment interpretation (narrative result)Ordered By: Alexandro Navarro on 01-09-2025 Manual differential comment Timoteo (Bld) [Interp] SCANNED [facility] Blood polychromasia detectio n by light microscopyOrdered By: Alexandro Navarro on 01-09-2025 Polychromasia LM Ql (Bld) 1+ [facility] CBC W Auto Differential pane l (Bld)on 01-09-2025 Basophils (Bld) [#/Vol] 0.12 10*3/uL High [facility] Basophils/100 WBC (Bld) 0.5 % [facility] Differential cell count method Nom (Bld) Auto [facility] Eosinophils (Bld) [#/Vol] 0.08 10*3/uL [facility] Eosinophils/100 WBC (Bld) 0.4 % [facility] Erythrocyte distribution width (RBC) [Ratio] 22 % High 11.5 - 15.0 % [facility] Hematocrit (Bld) [Volume fraction] 26.1 % Low 39.0 - 51.0 % [facility] Hemoglobin (Bld) [Mass/Vol] 7.6 g/dL Low 13.0 - 17.0 g/dL [facility] Immature granulocytes (Bld) [#/Vol] 0.44 10*3/uL High [facility] Immature granulocytes/100 WBC (Bld) 2 % [facility] Interpretation and review of laboratory results Abnormal [facility] Lymphocytes (Bld) [#/Vol] 1.44 10*3/uL [facility] Lymphocytes/100 WBC (Bld) 6.4 % [facility] MCH (RBC) [Entitic mass] 26.6 pg 26.0 - 34.0 pg [facility] MCHC (RBC) [Mass/Vol] 29.1 g/dL Low 30.5 - 36.0 g/dL [facility] MCV (RBC) [Entitic vol] 91.3 fL 80.0 - 100.0 fL [facility] Monocytes (Bld) [#/Vol] 1.24 10*3/uL [facility] Monocytes/100 WBC (Bld) 5.5 % [facility] Neutrophils (Bld) [#/Vol] 19.16 10*3/uL High [facility] Neutrophils/100 WBC (Bld) 85.2 % [facility] Nucleated RBC (Bld) [#/Vol] 0.02 10*3/uL [facility] Nucleated RBC/100 WBC (Bld) [Ratio] 0.1 % /100 WBC [facility] Platelet mean volume (Bld) [Entitic vol] 10 fL 9.0 - 12.7 fL [facility] Platelets (Bld) [#/Vol] 462 10*3/uL High [facility] RBC (Bld) [#/Vol] 2.86 10*6/uL Low 4.20 - 6.0 0 m/uL [facility] WBC (Bld) [#/Vol] 22.48 10*3/uL High [facility] Carbon dioxide, total [Moles /volume] in Central venous bloodOrdered By: Alexandro Navarro on 01-09-2025 CO2 [Moles/Vol] 26.0 mmol/L 21.0-32.0 [facility] Chloride assayOrdered By: Jeffery Navarro on 01-09-2025 Chloride [Moles/Vol] 96 mmol/L Low 98-108 [facility] Comprehensive metabolic 2000 panelOrdered By: Cody Hurtado on 01-09-2025 Albumin [Mass/Vol] 2.7 g/dL Low 3.9 - 4.9 g/dL [facility] ALP [Catalytic activity/Vol] 149 U/L High 38 - 113 U/L [facility] ALT [Catalytic activity/Vol] 16 U/L 10 - 54 U/L [facility] Anion gap [Moles/Vol] 15 mmol/L 8 - 15 mmol/L [facility] AST [Catalytic activity/Vol] 29 U/L 14 - 40 U/L [facility] Bilirubin [Mass/Vol] 1.1 mg/dL 0.2 - 1 .3 mg/dL [facility] Calcium [Mass/Vol] 9.5 mg/dL 8.5 - 10. 2 mg/dL [facility] Chloride [Moles/Vol] 95 mmol/L Low 98 - 10 7 mmol/L [facility] CO2 [Moles/Vol] 22 mmol/L 22 - 30 mmol/L [facility] Creatinine [Mass/Vol] 0.98 mg/dL 0.73 - 1.22 mg/dL [facility] GFR/1.73 sq M.predicted among non-blacks MDRD (S/P/Bld) [Vol rate/Area] 79 mL/min/{1.73_m2} - PINF [facility] Comment on above: Estimated Glomerular Filtration Rate (eGFR) is calculated using the 2020 CKD-EPI creatinine equation. This equation utilizes serum creatinine, sex, and age as parameters. The creatinine assay has traceable calibration to isotope dilution-mass spectrometry. Refer to KDIGO guidelines for clinical interpretation. In patients with unstable renal function, e.g. those with acute kidney injury, the eGFR may not accurately reflect actual GFR. Glucose [Mass/Vol] 204 mg/dL High 74 - 99 mg/dL [facility] Comment on above: The [place] [employer] (ADA) provides guidance for cutoff values for fasting glucose and random glucose. The ADA defines fasting as no caloric intake for at least 8 hours. Fasting plasma glucose results between 100 to 125 mg/dL indicate increased risk for diabetes (prediabetes). Fasting plasma glucose results greater than or equal to 126 mg/dL meet the criteria for diagnosis of diabetes. In the absence of unequivocal hyperglycemia, results should be confirmed by repeat testing. In a patient with classic symptoms of hyperglycemia or hyperglycemic crisis, random plasma glucose results greater than or equal to 200 mg/dL meet the criteria for diagnosis of diabetes. Reference: Standards of Medical Care in Diabetes 2016, [place] [employer]. Diabetes Care. 2016.39(Suppl 1). Interpretation and review of laboratory results Abnormal [facility] Potassium [Moles/Vol] 4.3 mmol/L 3.7 - 5.1 mmol/L [facility] Protein [Mass/Vol] 8.7 g/dL High 6.3 - 8.0 g/dL [facility] Sodium [Moles/Vol] 132 mmol/L Low 136 - 144 mmol/L [facility] Urea nitrogen [Mass/Vol] 16 mg/dL 9 - 24 mg/dL [facility] Eosinophil percentageOrdered By: Alexandro Navarro on 01-09-2025 Eosinophils/100 WBC (Bld) 0.1 % 0-5 [facility] Erythrocyte distribution wid th ratioOrdered By: Alexandro Navarro on 01-09-2025 Erythrocyte distribution width (RBC) [Ratio] 21.6 % High 11.6-14.6 [facility] Erythrocyte distribution wid th standard deviationOrdered By: Alexandro Navarro on 01-09-2025 Erythrocyte distribution width (RBC) [Ratio] 69.5 fl High 35.1-43.9 [facility] Glomerular filtration rate ( GFR) estimation/1.73 sq m using serum, plasma, or whole bOrdered By: Alexandro Navarro on 01-09-2025 GFR/1.73 sq M.predicted among non-blacks MDRD (S/P/Bld) [Vol rate/Area] 73 mL/min/{1.73_m2} >60 [facility] Comment on above: mL/min/1.73m2 CKD-EP I Creatinine Equation (2020) Hematocrit Auto (Bld) [Volum e fraction]Ordered By: Alexandro Navarro on 01-09-2025 Hematocrit (Bld) [Volume fraction] 19.8 % Low 40-54 [facility] Hemoglobin measurementOrdere d By: Alexandro Navarro on 01-09-2025 Hemoglobin (Bld) [Mass/Vol] 5.9 g/dL Low 13.0-16.5 [facility] Comment on above: CRITICAL VALUE MORALES D TO RODNEY NGUYEN01/09/25 1438 Jailyn Sena.RESULTS READ BACK BY SAME. Hypochromatic red blood cell detectionOrdered By: Alexandro Navarro on 01-09-2025 Hypochromia Ql (Bld) 2+ [facility] Immature granulocytes/100 WB C Auto (Bld)Ordered By: Alexandro Navarro on 01-09-2025 Immature granulocytes/100 WBC (Bld) 1.200 % High 0.0-0.9 [facility] Comment on above: IG% - Immature Granu locytes (promyelocytes, myelocytes and metamyelocytes) > 1% indicates that a LEFT SHIFT is Present. Influenza virus A and B and SARS-CoV-2 (COVID-19) and Respiratory syncytial virus RNAOrdered By: Alexandro Navarro on 01-09-2025 SARS-CoV-2 (COVID-19) RNA ROYCE+probe Ql (Unsp spec) [facility] International normalized rat io (INR) calculationOrdered By: Alexandro Navarro on 01-09-2025 INR Coag (Bld) [Relative time] 1.3 {INR} [facility] - Chemistry and C hemistry - challengeOrdered By: Alexandro Navarro on 01-09-2025 AST [Catalytic activity/Vol] 29 U/L <38 [facility] - Hematology and Cell countsOrdered By: Alexandro Navarro on 01-09-2025 Anisocytosis Ql (Bld) 2+ [facility] Lactic acid measurementOrder ed By: Alexandro Navarro on 01-09-2025 Lactate [Moles/Vol] 1.4 mmol/L 0.0-2.0 [facility] MCV (mean corpuscular volume ) determinationOrdered By: Alexandro Navarro on 01-09-2025 MCV (RBC) [Entitic vol] 90.4 fL 80-94 [facility] Mean corpuscular hemoglobin (MCH) determinationOrdered By: Alexandro Navarro on 01-09-2025 MCH (RBC) [Entitic mass] 26.9 pg Low 27.0-32.0 [facility] Mean corpuscular hemoglobin concentration (MCHC) determinationOrdered By: Alexandro Navarro on 01-09-2025 MCHC (RBC) [Mass/Vol] 29.8 g/dL Low 32-36 [facility] Mean platelet volume determi nationOrdered By: Alexandro Navarro on 01-09-2025 Platelet mean volume (Bld) [Entitic vol] 9.8 fL 6.2-12.0 [facility] Monocyte percentageOrdered B y: Alexandro Navarro on 01-09-2025 Monocytes/100 WBC (Bld) 5.3 % 0-10 [facility] Neutrophil percentageOrdered By: Alexandro Navarro on 01-09-2025 Neutrophils/100 WBC (Bld) 87.1 % High 47-70 [facility] Nucleated red blood cell per centageOrdered By: Alexandro Navarro on 01-09-2025 Nucleated RBC/100 WBC (Bld) [Ratio] 0 % 0-5 [facility] Platelet countOrdered By: Jeffery Navarro on 01-09-2025 Platelets (Bld) [#/Vol] 280 10*3/uL 150-450 [facility] Platelet estimateOrdered By: Alexandro Navarro on 01-09-2025 Platelets LM Ql (Bld) ADEQUATE ADEQ [facility] Potassium measurement (mass/ volume)Ordered By: Alexandro Navarro on 01-09-2025 Potassium (Unsp spec) [Mass/Vol] 3.6 mmol/L 3.3-5.1 [facility] Prothrombin timeOrdered By: Alexandro Navarro on 01-09-2025 PT Coag (PPP) [Time] 16.4 s High 11.7-14.9 [facility] RBC Auto (Bld) [#/Vol]Ordere d By: Alexandro Navarro on 01-09-2025 RBC (Bld) [#/Vol] 2.19 10*6/uL Low 4.6-6.2 [facility] Serum creatinine measurement (mass/volume)Ordered By: Alexandro Navarro on 01-09-2025 Creatinine [Mass/Vol] 1.05 mg/dL 0.70-1.20 [facility] Serum globulin measurementOr dered By: Alexandro Navarro on 01-09-2025 Globulin (S) [Mass/Vol] 5.1 g/dL High 2.2-4.2 [facility] Serum glucose measurement (m ass/volume)Ordered By: Alexandro Navarro on 01-09-2025 Glucose [Mass/Vol] 177 mg/dL High 70-99 [facility] Serum or plasma alanine marshall otransferase (ALT) measurementOrdered By: Alexandro Navarro on 01-09-2025 ALT [Catalytic activity/Vol] 14 U/L <47 [facility] Serum or plasma albumin miley urement (mass/volume)Ordered By: Alexandro Navarro on 01-09-2025 Albumin [Mass/Vol] 2.4 g/dL Low 3.4-4.8 [facility] Serum or plasma albumin/glob ulin mass ratioOrdered By: Alexandro Navarro on 01-09-2025 Albumin/Globulin [Mass ratio] 0.5 {ratio} Low 0.9-2.4 [facility] Serum or plasma alkaline ruiz sphatase measurementOrdered By: Alexandro Navarro on 01-09-2025 ALP [Catalytic activity/Vol] 130 U/L High 40-129 [facility] Serum or plasma calcium miley urement (mass/volume)Ordered By: Alexandro Navarro on 01-09-2025 Calcium [Mass/Vol] 8.5 mg/dL 7.6-11.0 [facility] Serum or plasma urea nitroge n measurement (mass/volume)Ordered By: Alexandro Navarro on 01-09-2025 Urea nitrogen [Mass/Vol] 19 mg/dL 4-19 [facility] Sodium levelOrdered By: Alexandro Navarro on 01-09-2025 Sodium [Moles/Vol] 133 mmol/L 133-145 [facility] Stool gastrointestinal hemog lobin detection by immunologic methodOrdered By: Alexandro Navarro on 01-09-2025 Lower GI hemoglobin IA Ql (Stl) [facility] Total proteinOrdered By: Talon Navarro on 01-09-2025 Protein [Mass/Vol] 7.5 g/dL 5.9-8.4 [facility] White blood cell (WBC) count Ordered By: Alexandro Navarro on 01-09-2025 WBC (Bld) [#/Vol] 13.7 10*3/uL High 4.4-11.0 [facility] XR Chest PA and Lateralon IMPRESSION: Possible small area of consolidation in the left lower lobe. Increasing pulmonary metastases. Experimental Psychologist: ANNELIESE Transcribe Date/Time: Jan 09 2025 10:08A Dictated by : NGA HILLIARD MD This examination was interpreted and the report reviewed and electronically signed by: NGA HILLIARD MD on Jan 09 2025 10:09AM [facility] DIVISION OF RADIOLOGY * * *Final Report* * * DATE OF EXAM: Jan 09 2025 9:54AM WOX [id number] - XR CHEST 2V FRONTAL/LAT / PROCEDURE REASON: Productive cough * * * * Physician Interpretation * * * * EXAMINATION: CHEST RADIOGRAPH (2 VIEW FRONTAL & LATERAL) CLINICAL HISTORY: Productive cough MQ: [id number] EXAM DATE/TIME: 01/09/2025 9:54 AM COMPARISON: 12/20/2024 RESULT: Lines, tubes, and devices: Mediport with its tip over the mid SVC Lungs and pleura: Scattered bilateral lung masses up to 3.2 cm, increased compared with previously. Gaseous cavitation is noted within a left mid lung zone mass. Possible consolidation left lower lobe. No pleural effusions. Cardiomediastinal silhouette: Normal cardiomediastinal silhouette. Bones and soft tissues: Unremarkable. DIVISION OF RADIOLOGY Provider, Sharron Daniela [facility] - 01/09/2025 * * *Final Report* * * DATE OF EXAM: Jan 09 2025 9:54AM WOX [id number] - XR CHEST 2V FRONTAL/LAT / PROCEDURE REASON: Productive cough * * * * Physician Interpretation * * * * EXAMINATION: CHEST RADIOGRAPH (2 VIEW FRONTAL & LATERAL) CLINICAL HISTORY: Productive cough MQ: [id number] EXAM DATE/TIME: 01/09/2025 9:54 AM COMPARISON: 12/20/2024 RESULT: Lines, tubes, and devices: Mediport with its tip over the mid SVC Lungs and pleura: Scattered bilateral lung masses up to 3.2 cm, increased compared with previously. Gaseous cavitation is noted within a left mid lung zone mass. Possible consolidation left lower lobe. No pleural effusions. Cardiomediastinal silhouette: Normal cardiomediastinal silhouette. Bones and soft tissues: Unremarkable. IMPRESSION IMPRESSION: Possible small area of consolidation in the left lower lobe. Increasing pulmonary metastases. Experimental Psychologist: PSCB Transcribe Date/Time: Jan 09 2025 10:08A Dictated by : NGA HILLIARD MD This examination was interpreted and the report reviewed and electronically signed by: NGA HILLIARD MD on Jan 09 2025 10:09AM EST [facility] Radiology Study observation (narrative) [facility] XR Chest PA and LateralOrder ed By: Ccf Provider on 01-09-2025 [facility] CNPNon 01-02-2025 CNPN Normal [facility] CNPNon 12-21-2024 CNPN Normal [facility] ALLIED HEALTHon 12-20-2024 ALLIED HEALTH HNO ID: [id number] Author: DELGADO DUNLAP RT(R) Service: Radiology Author Type: Pals Specialist Type: Allied Health Filed: 12/20/2024 11:54 Note Text: Radiology Service Progress Note PATIENT NAME: Dipti Sierra DATE OF SERVICE: December 20, 2024 TIME: 11:54 AM PATIENT IDENTITY VERIFICATION COMPLETED USING TWO (2) IDENTIFIERS: Name and Date of confirmed by patient verbally. FALL SCREENING: Has the patient had 2 falls in the last year or 1 fall with injury or currently using an Ambulatory Assistive Device (Walker, Cane, Wheelchair, Crutches, etc.)? Emergency Room Patient: Screened in ED PATIENT GENDER DATA: Assigned male at PATIENT RELEVANT IMPLANT DATA REVIEWED: Not Applicable PATIENT PRESENTS WITH AN IMPLANTABLE OR ATTACHED CASING MAN: No RADIOLOGY DEPARTMENT: General X-ray: Exam(s) Completed: Chest X-Ray PERIPHERAL IV DATA: Not applicable SIGNED BY: RT Isiah(R) December 20, 2024 11:54 AM Normal [facility] CBC W Auto Differential pane l (Bld)on 12-20-2024 Anisocytosis Ql (Bld) Present Normal [facility]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 0.35 k/uL on 12/15/2024 at 2:19 PM EDT. Neutrophils/100 WBC (Bld) 34 % [facility] Comment on above: Corrected result: Pr eviously reported as 34.0 % on 12/15/2024 at 2:19 PM EDT. Nucleated RBC (Bld) [#/Vol] 0.01 10*3/uL High NINF [facility] Comment on above: Corrected result: Pr eviously reported as 0.01 k/uL on 12/15/2024 at 2:19 PM EDT. Nucleated RBC/100 WBC (Bld) [Ratio] 1 % /100 WBC [facility] Comment on above: Corrected result: Pr eviously reported as 1.0 /100 WBC on 12/15/2024 at 2:19 PM EDT. Ovalocytes LM Ql (Bld) Few [facility] Comment on above: Corrected result: Pr eviously reported as Few on 12/15/2024 at 2:19 PM EDT. Platelet mean volume (Bld) [Entitic vol] 10.8 fL 9.0 - 12.7 fL [facility] Platelets (Bld) [#/Vol] 88 10*3/uL Low [facility] Comment on above: No clot detected. Platelets Estimate (Bld) [#/Vol] Decreased [facility] Comment on above: Corrected result: Pr eviously reported as Decreased on 12/15/2024 at 2:19 PM EDT. Polychromasia LM Ql (Bld) Slight [facility] Comment on above: Corrected result: Pr eviously reported as Slight on 12/15/2024 at 2:19 PM EDT. RBC (Bld) [#/Vol] 2.82 10*6/uL Low 4.20 - 6.0 0 m/uL [facility] Red Cell Morph Reviewed: see result s of individual morphologies [facility] Comment on above: Corrected result: Pr eviously reported as Reviewed: see results of individual morphologies on 12/15/2024 at 2:19 PM EDT. Toxic granules LM Ql (Bld) Present [facility] Comment on above: Corrected result: Pr eviously reported as Present on 12/15/2024 at 2:19 PM EDT. WBC (Bld) [#/Vol] 1.03 10*3/uL Low [facility] WBC Left Shift Ql (Bld) Present [facility] Comment on above: Corrected result: Pr eviously reported as Present on 12/15/2024 at 2:19 PM EDT. This is an appended report. These results have been appended to a previously verified report. [facility] CBC W Auto Differential pane l (Bld)on 12-15-2024 Anisocytosis Ql (Bld) Present Normal [facility] Comment on above: Order Comment: Speci men Type: BLOOD SPECIMENOrdering Facility: [facility] Address: [address] [place] [address] Result Comment: Henry ected result: Previously reported as Present on 12/15/2024 at 2:19 PM EDT. Performed By: #### 5 7021-8 ####[facility]ORY[facility]IA [id number] [place] [address] [place] Basophils (Bld) [#/Vol] 0.00 10*3/uL Normal <0.11 [facility] Comment on above: Order Comment: Speci men Type: BLOOD SPECIMENOrdering Facility: [facility] Address: [address] [place] [address] Result Comment: Henry ected result: Previously reported as 0.00 k/uL on 12/15/2024 at 2:19 PM EDT. Performed By: #### 5 7021-8 ####[facility]ORYCLIA [id number] [place] [address] [place] Basophils/100 WBC (Bld) 0.0 % Normal [facility] Comment on above: Order Comment: Speci men Type: BLOOD SPECIMENOrdering Facility: [facility] Address: [address] [place] [address] Result Comment: Henry ected result: Previously reported as 0.0 % on 12/15/2024 at 2:19 PM EDT. Performed By: #### 5 7021-8 ####[facility]ORYCLIA [id number] [place] [address] [place] Differential cell count method Nom (Bld) Manual Normal [facility] Comment on above: Order Comment: Speci men Type: BLOOD SPECIMENOrdering Facility: [facility] Address: [address] [place] [address] Result Comment: Henry ected result: Previously reported as Manual on 12/15/2024 at 2:19 PM EDT. Performed By: #### 5 7021-8 ####[facility]ORYCLIA [id number] [place] [address] [place] Eosinophils (Bld) [#/Vol] 0.09 10*3/uL Normal <0.46 [facility] Comment on above: Order Comment: Speci men Type: BLOOD SPECIMENOrdering Facility: [facility] Address: [address] [place] [address] Result Comment: Henry ected result: Previously reported as 0.09 k/uL on 12/15/2024 at 2:19 PM EDT. Performed By: #### 5 7021-8 ####[facility]ORYCLIA [id number] [address] STATES [facility] Eosinophils/100 WBC (Bld) 9.0 % Normal [facility] Comment on above: Order Comment: Speci men Type: BLOOD SPECIMENOrdering Facility: [facility] Address: [address] [place] [address] Result Comment: Henry ected result: Previously reported as 9.0 % on 12/15/2024 at 2:19 PM EDT. Performed By: #### 5 7021-8 ####[facility]ORYCLIA [id number] [place] [address] [place] Erythrocyte distribution width (RBC) [Ratio] 19.7 % High 11.5-15.0 [facility] Comment on above: Order Comment: Speci men Type: BLOOD SPECIMENOrdering Facility: [facility] Address: [address] [place] [address] Performed By: #### 5 7021-8 ####[facility]ORYCLIA [id number] [address] [place] Hematocrit (Bld) [Volume fraction] 24.5 % Low 39.0-51.0 [facility] Comment on above: Order Comment: Speci men Type: BLOOD SPECIMENOrdering Facility: [facility] Address: [address] [place] [address] Performed By: #### 5 7021-8 ####[facility]ORYCLIA [id number] [place] [address] [place] Hemoglobin (Bld) [Mass/Vol] 7.7 g/dL Low 13.0-17.0 [facility] Comment on above: Order Comment: Speci men Type: BLOOD SPECIMENOrdering Facility: [facility] Address: [address] [place] [address] Performed By: #### 5 7021-8 ####[facility]ORYCLIA [id number] [place] [address] [place] Lymphocytes (Bld) [#/Vol] 0.48 10*3/uL Low 1.00-4.00 [facility] Comment on above: Order Comment: Speci men Type: BLOOD SPECIMENOrdering Facility: [facility] Address: [address] [place] [address] Result Comment: Henry ected result: Previously reported as 0.48 k/uL on 12/15/2024 at 2:19 PM EDT. Performed By: #### 5 7021-8 ####[facility]ORYCLIA [id number] [address] [place] Lymphocytes/100 WBC (Bld) 47.0 % Normal [facility] Comment on above: Order Comment: Speci men Type: BLOOD SPECIMENOrdering Facility: [facility] Address: [address] [place] [address] Result Comment: Henry ected result: Previously reported as 47.0 % on 12/15/2024 at 2:19 PM EDT. Performed By: #### 5 7021-8 ####[facility]ORYCLIA [id number] [place] [address] [place] MCH (RBC) [Entitic mass] 27.3 pg Normal 26.0-34.0 [facility] Comment on above: Order Comment: Speci men Type: BLOOD SPECIMENOrdering Facility: [facility] Address: [address] [place] [address] Performed By: #### 5 7021-8 ####[facility]ORYCLIA [id number] [address] [place] MCHC (RBC) [Mass/Vol] 31.4 g/dL Normal 30.5-36.0 [facility] Comment on above: Order Comment: Speci men Type: BLOOD SPECIMENOrdering Facility: [facility] Address: [address] [place] [address] Performed By: #### 5 7021-8 ####[facility]ORYCLIA [id number] [address] STATES OF [facility] MCV (RBC) [Entitic vol] 86.9 fL Normal 80.0-100.0 [facility] Comment on above: Order Comment: Speci men Type: BLOOD SPECIMENOrdering Facility: [facility] Address: [address] [place] [address] Performed By: #### 5 7021-8 ####[facility]ATORYIA [id number] [address] Monocytes (Bld) [#/Vol] 0.10 10*3/uL Normal <0.87 [facility] Comment on above: Order Comment: Speci men Type: BLOOD SPECIMENOrdering Facility: [facility] Address: [address] [place] [address] Result Comment: Henry ected result: Previously reported as 0.10 k/uL on 12/15/2024 at 2:19 PM EDT. Performed By: #### 5 7021-8 ####[facility]ORYCLIA [id number] [address] Monocytes/100 WBC (Bld) 10.0 % Normal [facility] Comment on above: Order Comment: Speci men Type: BLOOD SPECIMENOrdering Facility: [facility] Address: [address] [place] [address] Result Comment: Henry ected result: Previously reported as 10.0 % on 12/15/2024 at 2:19 PM EDT. Performed By: #### 5 7021-8 ####[facility]ORYCLIA [id number] [place] [address] [place] Neutrophils (Bld) [#/Vol] 0.35 10*3/uL Low 1.45-7.50 [facility] Comment on above: Order Comment: Speci men Type: BLOOD SPECIMENOrdering Facility: [facility] Address: [address] [place] [address] Result Comment: Henry ected result: Previously reported as 0.35 k/uL on 12/15/2024 at 2:19 PM EDT. Performed By: #### 5 7021-8 ####[facility]ORYCLIA [id number] [address] [place] Neutrophils/100 WBC (Bld) 34.0 % Normal [facility] Comment on above: Order Comment: Speci men Type: BLOOD SPECIMENOrdering Facility: [facility] Address: [address] [place] [address] Result Comment: Henry ected result: Previously reported as 34.0 % on 12/15/2024 at 2:19 PM EDT. Performed By: #### 5 7021-8 ####[facility]ORYCLIA [id number] [place] [address] [place] Nucleated RBC (Bld) [#/Vol] 0.01 10*3/uL High <0.01 [facility] Comment on above: Order Comment: Speci men Type: BLOOD SPECIMENOrdering Facility: [facility] Address: [address] [place] [address] Result Comment: Henry ected result: Previously reported as 0.01 k/uL on 12/15/2024 at 2:19 PM EDT. Performed By: #### 5 7021-8 ####[facility]ORYCLIA [id number] [address] [place] Nucleated RBC/100 WBC (Bld) [Ratio] 1.0 /100 WBC Normal [facility] Comment on above: Order Comment: Speci men Type: BLOOD SPECIMENOrdering Facility: [facility] Address: [address] [place] [address] Result Comment: Henry ected result: Previously reported as 1.0 /100 WBC on 12/15/2024 at 2:19 PM EDT. Performed By: #### 5 7021-8 ####[facility]ORYCLIA [id number] [place] [address] [place] Ovalocytes LM Ql (Bld) Few Normal [facility] Comment on above: Order Comment: Speci men Type: BLOOD SPECIMENOrdering Facility: [facility] Address: [address] [place] [address] Result Comment: Henry ected result: Previously reported as Few on 12/15/2024 at 2:19 PM EDT. Performed By: #### 5 7021-8 ####[facility]ATORYIA [id number] [place] [address] [place] Platelet mean volume (Bld) [Entitic vol] 10.8 fL Normal 9.0-12.7 [facility] Comment on above: Order Comment: Speci men Type: BLOOD SPECIMENOrdering Facility: [facility] Address: [address] [place] [address] Performed By: #### 5 7021-8 ####[facility]ORYCLIA [id number] [address] [place] Platelets (Bld) [#/Vol] 88 10*3/uL Low 150-400 [facility] Comment on above: Order Comment: Speci men Type: BLOOD SPECIMENOrdering Facility: [facility] Address: [address] [place] [address] Result Comment: No c lot detected. Performed By: #### 5 7021-8 ####[facility]ORYCLIA [id number] [address] Platelets Estimate (Bld) [#/Vol] Decreased Normal [facility] Comment on above: Order Comment: Speci men Type: BLOOD SPECIMENOrdering Facility: [facility] Address: [address] [place] [address] Result Comment: Henry ected result: Previously reported as Decreased on 12/15/2024 at 2:19 PM EDT. Performed By: #### 5 7021-8 ####[facility]ORYCLIA [id number] [address] Polychromasia LM Ql (Bld) Slight Normal [facility] Comment on above: Order Comment: Speci men Type: BLOOD SPECIMENOrdering Facility: [facility] Address: [address] [place] [address] Result Comment: Henry ected result: Previously reported as Slight on 12/15/2024 at 2:19 PM EDT. Performed By: #### 5 7021-8 ####[facility]ORATORYIA [id number] [place] [address] [place] RBC (Bld) [#/Vol] 2.82 10*6/uL Low 4.20-6.00 [facility] Comment on above: Order Comment: Speci men Type: BLOOD SPECIMENOrdering Facility: [facility] Address: [address] [place] [address] Performed By: #### 5 7021-8 ####[facility]ORYCLIA [id number] [address] RED CELL MORPH Reviewed: see result s of individual morphologies Normal [facility] Comment on above: Order Comment: Speci men Type: BLOOD SPECIMENOrdering Facility: [facility] Address: [address] [place] [address] Result Comment: Henry ected result: Previously reported as Reviewed: see results of individual morphologies on 12/15/2024 at 2:19 PM EDT. Performed By: #### 5 7021-8 ####[facility]ORYCLIA [id number] [address] [place] Toxic granules LM Ql (Bld) Present Normal [facility] Comment on above: Order Comment: Speci men Type: BLOOD SPECIMENOrdering Facility: [facility] Address: [address] [place] [address] Result Comment: Henry ected result: Previously reported as Present on 12/15/2024 at 2:19 PM EDT. Performed By: #### 5 7021-8 ####[facility]ATORYCLIA [id number] [place] [address] [place] WBC (Bld) [#/Vol] 1.03 10*3/uL Low 3.70-11.00 [facility] Comment on above: Order Comment: Speci margaret Type: BLOOD SPECIMENOrdering Facility: [facility] Address: [address] [place] [address] Performed By: #### 5 7021-8 ####[facility]ATORYCLIA [id number] [address] STATES [facility] WBC Left Shift Ql (Bld) Present Normal [facility] Comment on above: Order Comment: Willam robles Type: BLOOD SPECIMENOrdering Facility: [facility] Address: [address] [place] [address] Result Comment: Henry ected result: Previously reported as Present on 12/15/2024 at 2:19 PM EDT. Performed By: #### 5 7021-8 ####[facility]ATORYCLIA [id number] [place] [address] [place] CEA SerPl-mCncon 12-15-2024 Carcinoembryonic Ag [Mass/Vol] 38.3 ng/mL High <=2.9 [facility] Comment on above: Order Comment: Willam robles Type: BLOOD SPECIMENOrdering Facility: [facility] Address: [address] [place] [address] Result Comment: Carc inoembryonic antigen test is used as an aid in monitoring response to treatment or recurrence in patients with established colorectal, breast, lung, prostatic, pancreatic, and ovarian carcinomas. Clinical correlation is required.The Carcinoembryonic antigen test was performed using the Bryce Iveth [employer] DXI paramagnetic particle chemiluminescent immunoassay method. Results obtained with different assay methods or kits cannot be used interchangeably. Performed By: #### 2 039-6 ####[facility] LABCLIA [id number] [place] [address] [place] CNPNon 12-15-2024 CNPN Normal [facility] metabolic 2000 panelOrdered By: Cody Hurtado on 12-15-2024 Albumin [Mass/Vol] 3.2 g/dL Low 3.9 - 4.9 g/dL [facility] ALP [Catalytic activity/Vol] 77 U/L 38 - 113 U/L [facility] ALT [Catalytic activity/Vol] 11 U/L 10 - 54 U/L [facility] Anion gap [Moles/Vol] 12 mmol/L 8 - 15 mmol/L [facility] AST [Catalytic activity/Vol] 17 U/L 14 - 40 U/L [facility] Bilirubin [Mass/Vol] 0.9 mg/dL 0.2 - 1 .3 mg/dL [facility] Calcium [Mass/Vol] 8.9 mg/dL 8.5 - 10. 2 mg/dL [facility] Chloride [Moles/Vol] 93 mmol/L Low 98 - 10 7 mmol/L [facility] CO2 [Moles/Vol] 24 mmol/L 22 - 30 mmol/L [facility] Creatinine [Mass/Vol] 0.84 mg/dL 0.73 - 1.22 mg/dL [facility] GFR/1.73 sq M.predicted among non-blacks MDRD (S/P/Bld) [Vol rate/Area] 90 mL/min/{1.73_m2} - PINF [facility] Comment on above: Estimated Glomerular Filtration Rate (eGFR) is calculated using the 2020 CKD-EPI creatinine equation. This equation utilizes serum creatinine, sex, and age as parameters. The creatinine assay has traceable calibration to isotope dilution-mass spectrometry. Refer to KDIGO guidelines for clinical interpretation. In patients with unstable renal function, e.g. those with acute kidney injury, the eGFR may not accurately reflect actual GFR. Glucose [Mass/Vol] 141 mg/dL High 74 - 99 mg/dL [facility] Comment on above: The [place] [employer] (ADA) provides guidance for cutoff values for fasting glucose and random glucose. The ADA defines fasting as no caloric intake for at least 8 hours. Fasting plasma glucose results between 100 to 125 mg/dL indicate increased risk for diabetes (prediabetes). Fasting plasma glucose results greater than or equal to 126 mg/dL meet the criteria for diagnosis of diabetes. In the absence of unequivocal hyperglycemia, results should be confirmed by repeat testing. In a patient with classic symptoms of hyperglycemia or hyperglycemic crisis, random plasma glucose results greater than or equal to 200 mg/dL meet the criteria for diagnosis of diabetes. Reference: Standards of Medical Care in Diabetes 2016, [place] [employer]. Diabetes Care. 2016.39(Suppl 1). Interpretation and review of laboratory results Abnormal [facility] Potassium [Moles/Vol] 3.6 mmol/L Low 3.7 - 5.1 mmol/L [facility] Protein [Mass/Vol] 6.9 g/dL 6.3 - 8.0 g/dL [facility] Sodium [Moles/Vol] 129 mmol/L Low 136 - 144 mmol/L [facility] Urea nitrogen [Mass/Vol] 16 mg/dL 9 - 24 mg/dL [facility] Comprehensive metabolic 2000 panelon 12-15-2024 Albumin [Mass/Vol] 3.2 g/dL Low 3.9-4.9 [facility] Comment on above: Order Comment: Speci men Type: BLOOD SPECIMENOrdering Facility: [facility] Address: [address] [place] [address] Performed By: #### 1 9123-9, 43823-8 ####[facility] [id number] [place] [address] [place] ALP [Catalytic activity/Vol] 77 U/L Normal 38-113 [facility] Comment on above: Order Comment: Speci men Type: BLOOD SPECIMENOrdering Facility: [facility] Address: [address] [place] [address] Performed By: #### 1 9123-9, 62377-8 ####[facility] NORTHLIA [id number] [place] [address] [place] ALT [Catalytic activity/Vol] 11 U/L Normal 10-54 [facility] Comment on above: Order Comment: Speci men Type: BLOOD SPECIMENOrdering Facility: [facility] Address: [address] [place] [address] Performed By: #### 1 9123-9, 12168-6 ####[facility] CLAU MILLTOWNCLIA [id number] [place] [address] [place] Anion gap [Moles/Vol] 12 mmol/L Normal 8-15 [facility] Comment on above: Order Comment: Speci men Type: BLOOD SPECIMENOrdering Facility: [facility] Address: [address] [place] [address] Performed By: #### 1 9123-9, 95337-3 ####[facility] MILLTOWGIANNALIA [id number] [place] [address] [place] AST [Catalytic activity/Vol] 17 U/L Normal 14-40 [facility] Comment on above: Order Comment: Speci men Type: BLOOD SPECIMENOrdering Facility: [facility] Address: [address] [place] [address] Performed By: #### 1 9123-9, 44112-5 ####[facility] MILLTOWNCLIA [id number] [place] [address] [place] Bilirubin [Mass/Vol] 0.9 mg/dL Normal 0.2-1.3 [facility] Comment on above: Order Comment: Speci men Type: BLOOD SPECIMENOrdering Facility: [facility] Address: [address] [place] [address] Performed By: #### 1 9123-9, 98111-7 ####[facility] CLAU MILLTOWNCLIA [id number] [place] [address] [place] Calcium [Mass/Vol] 8.9 mg/dL Normal 8.5-10.2 [facility] Comment on above: Order Comment: Speci men Type: BLOOD SPECIMENOrdering Facility: [facility] Address: [address] [place] [address] Performed By: #### 1 9123-9, 88721-2 ####[facility]ENWNCLIA [id number] [place] [address] [place] Chloride [Moles/Vol] 93 mmol/L Low 98-107 [facility] Comment on above: Order Comment: Speci men Type: BLOOD SPECIMENOrdering Facility: [facility] Address: [address] [place] [address] Performed By: #### 1 9123-9, 44349-3 ####[facility] [id number] [place] [address] [place] CO2 [Moles/Vol] 24 mmol/L Normal 22-30 [facility] Comment on above: Order Comment: Speci men Type: BLOOD SPECIMENOrdering Facility: [facility] Address: [address] [place] [address] Performed By: #### 1 9123-9, 20326-6 ####[facility]ITALNCLIA [id number] [place] [address] [place] Creatinine [Mass/Vol] 0.84 mg/dL Normal 0.73-1.22 [facility] Comment on above: Order Comment: Speci men Type: BLOOD SPECIMENOrdering Facility: [facility] Address: [address] [place] [address] Performed By: #### 1 9123-9, 76444-1 ####[facility]ITALNCLIA [id number] [place] [address] [place] Creatinine and Glomerular filtration rate.predicted panel (S/P/Bld) 90 mL/min/1.73m??? Normal >=60 [facility] Comment on above: Order Comment: Willam robles Type: BLOOD SPECIMENOrdering Facility: [facility] Address: [address] [id number] Result Comment: Rod mated Glomerular Filtration Rate (eGFR) is calculated using the 2020 CKD-EPI creatinine equation. This equation utilizes serum creatinine, sex, and age as parameters. The creatinine assay has traceable calibration to isotope dilution-mass spectrometry. Refer to KDIGO guidelines for clinical interpretation. In patients with unstable renal function, e.g. those with acute kidney injury, the eGFR may not accurately reflect actual GFR. Performed By: #### 1 9123-9, 12185-5 ####[facility] [id number] [place] [address] [place] Glucose [Mass/Vol] 141 mg/dL High 74-99 [facility] Comment on above: Order Comment: Willam robles Type: BLOOD SPECIMENOrdering Facility: [facility] Address: [address] [place] [address] Result Comment: The [place] Diabetes Association (ADA) provides guidance for cutoff values for fasting glucose and random glucose. The ADA defines fasting as no caloric intake for at least 8 hours. Fasting plasma glucose results between 100 to 125 mg/dL indicate increased risk for diabetes (prediabetes).Fasting plasma glucose results greater than or equal to 126 mg/dL meet the criteria for diagnosis of diabetes. In the absence of unequivocal hyperglycemia, results should be confirmed by repeat testing. In a patient with classic symptoms of hyperglycemia or hyperglycemic crisis, random plasma glucose results greater than or equal to 200 mg/dL meet the criteria for diagnosis of diabetes.Reference: Standards of Medical Care in Diabetes 2016, [place] [employer]. Diabetes Care. 2016.39(Suppl 1). Performed By: #### 1 9123-9, 53687-1 ####[facility] [id number] [place] [address] [place] Potassium [Moles/Vol] 3.6 mmol/L Low 3.7-5.1 [facility] Comment on above: Order Comment: Willam robles Type: BLOOD SPECIMENOrdering Facility: [facility] Address: [address] [place], [place] [address] Performed By: #### 1 9123-9, 03761-9 ####[facility] CLAU MILLTOWNCLIA [id number] [place] [address] [place] Protein [Mass/Vol] 6.9 g/dL Normal 6.3-8.0 [facility] Comment on above: Order Comment: Speci men Type: BLOOD SPECIMENOrdering Facility: [facility] Address: [address] [place], [place] [address] Performed By: #### 1 9123-9, 78425-8 ####[facility] CLAU MILLCAROLLIA [id number] [place] [address] [place] Sodium [Moles/Vol] 129 mmol/L Low 136-144 [facility] Comment on above: Order Comment: Speci men Type: BLOOD SPECIMENOrdering Facility: [facility] Address: [address] [place], [place] [address] Performed By: #### 1 9123-9, 93580-1 ####[facility] MILLJEFFERYWGIANNALIA [id number] [place] [address] [place] Urea nitrogen [Mass/Vol] 16 mg/dL Normal 9-24 [facility] Comment on above: Order Comment: Speci men Type: BLOOD SPECIMENOrdering Facility: [facility] Address: [address] [place] [address] Performed By: #### 1 9123-9, 56746-1 ####[facility] CLAU MILLTOWNCLIA [id number] [place] [address] [place] MAGNESIUMon 12-15-2024 Magnesium [Mass/Vol] 1.7 mg/dL 1.7 - 2 .3 mg/dL [facility] Magnesium SerPl-mCncon 12-15 Magnesium [Mass/Vol] 1.7 mg/dL Normal 1.7-2.3 [facility] Comment on above: Order Comment: Speci men Type: BLOOD SPECIMENOrdering Facility: [facility] Address: [address] [place] [address] Performed By: #### 1 9123-9, 98714-3 ####[facility] [id number] [place] [address] [place] Magnesium [Mass/Vol]on 12-15 Interpretation and review of laboratory results Normal [facility] No Panel Informationon 12-15 [facility] Prot 24h Ur-mRateon 12-08-19 25 Protein (24H U) [Mass/Time] 0.25 g/24 Hr High <0.15 [facility] Comment on above: Order Comment: Speci men Type: URINE SPECIMENOrdering Facility: [facility] Address: [address] [place] [address] Result Comment: Adul t Proteinuria Categories:<0.15 g/24 hours is considered normal to mildly increased0.15 - 0.50 g/24 hours is considered moderately increased>0.50 g/24 hours is considered severely increasedKDIGO. (2013). KDIGO 2012 Clinical Practice Guideline for the Evaluation and Management of Chronic Kidney Disease. Official Journal of the International Society of Nephrology, 3(1), 1-150. Performed By: #### 2 889-4 ####[facility] LABCLIA [id number] [address] [id number] [facility] [id number] [place] [address] [place] Protein (24H U) [Mass/Time]o n 12-07-2024 PERIOD (HRS) 24 hr Normal [facility] Comment on above: Order Comment: Speci men Type: URINE SPECIMENOrdering Facility: [facility] Address: [address] [place] [address] Performed By: #### 2 889-4 ####[facility] LABCLIA [id number] [place] [id number] [facility]CL[facility] [id number] [place] [address] [place] Specimen volume (24H U) 2.275 L Normal [facility] Comment on above: Order Comment: Speci men Type: URINE SPECIMENOrdering Facility: [facility] Address: [address] [place] [address] Performed By: #### 2 889-4 ####[facility] LABCLIA [id number] [address] [id number] [place] [address] [place] CNPNon 12-06-2024 CNPN Normal [facility] CBC W Auto Differential pane l (Bld)on 12-05-2024 Basophils (Bld) [#/Vol] 0.06 10*3/uL [facility] Basophils/100 WBC (Bld) 1 % [facility] Differential cell count method Nom (Bld) Auto [facility] Eosinophils (Bld) [#/Vol] 0.04 10*3/uL [facility] Eosinophils/100 WBC (Bld) 0.7 % [facility] Erythrocyte distribution width (RBC) [Ratio] 20.1 % High 11.5 - 15.0 % [facility] Hematocrit (Bld) [Volume fraction] 28.8 % Low 39.0 - 51.0 % [facility] Hemoglobin (Bld) [Mass/Vol] 8.6 g/dL Low 13.0 - 17.0 g/dL [facility] Immature granulocytes (Bld) [#/Vol] 0.03 10*3/uL [facility] Immature granulocytes/100 WBC (Bld) 0.5 % [facility] Interpretation and review of laboratory results Abnormal [facility] Lymphocytes (Bld) [#/Vol] 0.6 10*3/uL Low [facility] Lymphocytes/100 WBC (Bld) 10.4 % [facility] MCH (RBC) [Entitic mass] 27 pg 26.0 - 34.0 pg [facility] MCHC (RBC) [Mass/Vol] 29.9 g/dL Low 30.5 - 36.0 g/dL [facility] MCV (RBC) [Entitic vol] 90.6 fL 80.0 - 100.0 fL [facility] Monocytes (Bld) [#/Vol] 0.46 10*3/uL [facility] Monocytes/100 WBC (Bld) 8 % [facility] Neutrophils (Bld) [#/Vol] 4.59 10*3/uL [facility] Neutrophils/100 WBC (Bld) 79.4 % [facility] Nucleated RBC (Bld) [#/Vol] NINF [facility] Nucleated RBC/100 WBC (Bld) [Ratio] 0 % /100 WBC [facility] Platelet mean volume (Bld) [Entitic vol] 9.4 fL 9.0 - 12.7 fL [facility] Platelets (Bld) [#/Vol] 238 10*3/uL [facility] RBC (Bld) [#/Vol] 3.18 10*6/uL Low 4.20 - 6.0 0 m/uL [facility] WBC (Bld) [#/Vol] 5.78 10*3/uL [facility] Basophils (Bld) [#/Vol] 0.06 10*3/uL Normal <0.11 [facility] Comment on above: Order Comment: Speci men Type: BLOOD SPECIMENOrdering Facility: [facility] Address: [address] [place] [address] Performed By: #### 5 7021-8 ####[facility] [id number] [place] [address] [place] Basophils/100 WBC (Bld) 1.0 % Normal [facility] Comment on above: Order Comment: Speci men Type: BLOOD SPECIMENOrdering Facility: [facility] Address: [address] [place] [address] Performed By: #### 5 7021-8 ####[facility] [id number] [place] [address] [place] Differential cell count method Nom (Bld) Auto Normal [facility] Comment on above: Order Comment: Speci men Type: BLOOD SPECIMENOrdering Facility: [facility] Address: [address] [place] [address] Performed By: #### 5 7021-8 ####[facility] HOSPITALFALGUNI [id number] [place] [address] [place] Eosinophils (Bld) [#/Vol] 0.04 10*3/uL Normal <0.46 [facility] Comment on above: Order Comment: Speci men Type: BLOOD SPECIMENOrdering Facility: [facility] Address: [address] [place] [address] Performed By: #### 5 7021-8 ####[facility] [id number] [place] [address] [place] Eosinophils/100 WBC (Bld) 0.7 % Normal [facility] Comment on above: Order Comment: Speci men Type: BLOOD SPECIMENOrdering Facility: [facility] Address: [address] [place] [address] Performed By: #### 5 7021-8 ####[facility] [id number] [place] [address] [place] Erythrocyte distribution width (RBC) [Ratio] 20.1 % High 11.5-15.0 [facility] Comment on above: Order Comment: Speci men Type: BLOOD SPECIMENOrdering Facility: [facility] Address: [address] [place] [address] Performed By: #### 5 7021-8 ####[facility] [id number] [place] [address] [place] Hematocrit (Bld) [Volume fraction] 28.8 % Low 39.0-51.0 [facility] Comment on above: Order Comment: Speci men Type: BLOOD SPECIMENOrdering Facility: [facility] Address: [address] [place] [address] Performed By: #### 5 7021-8 ####[facility] HOSPITALGIANNALIA [id number] [place] [address] [place] Hemoglobin (Bld) [Mass/Vol] 8.6 g/dL Low 13.0-17.0 [facility] Comment on above: Order Comment: Speci men Type: BLOOD SPECIMENOrdering Facility: [facility] Address: [address] [place] [address] Performed By: #### 5 7021-8 ####[facility] NORTHLIA [id number] [place] [address] [place] Immature granulocytes (Bld) [#/Vol] 0.03 10*3/uL Normal <0.10 [facility] Comment on above: Order Comment: Speci men Type: BLOOD SPECIMENOrdering Facility: [facility] Address: [address] [place] [address] Performed By: #### 5 7021-8 ####[facility] [id number] [place] [address] [place] Immature granulocytes/100 WBC (Bld) 0.5 % Normal [facility] Comment on above: Order Comment: Speci men Type: BLOOD SPECIMENOrdering Facility: [facility] Address: [address] [place] [address] Performed By: #### 5 7021-8 ####[facility] [id number] [place] [address] [place] Lymphocytes (Bld) [#/Vol] 0.60 10*3/uL Low 1.00-4.00 [facility] Comment on above: Order Comment: Speci men Type: BLOOD SPECIMENOrdering Facility: [facility] Address: [address] [place] [address] Performed By: #### 5 7021-8 ####[facility]ITALNCLIA [id number] [place] [address] [place] Lymphocytes/100 WBC (Bld) 10.4 % Normal [facility] Comment on above: Order Comment: Speci men Type: BLOOD SPECIMENOrdering Facility: [facility] Address: [address] [place] [address] Performed By: #### 5 7021-8 ####[facility] [id number] [place] [address] [place] MCH (RBC) [Entitic mass] 27.0 pg Normal 26.0-34.0 [facility] Comment on above: Order Comment: Speci men Type: BLOOD SPECIMENOrdering Facility: [facility] Address: [address] [place] [address] Performed By: #### 5 7021-8 ####[facility] [id number] [place] [address] [place] MCHC (RBC) [Mass/Vol] 29.9 g/dL Low 30.5-36.0 [facility] Comment on above: Order Comment: Speci men Type: BLOOD SPECIMENOrdering Facility: [facility] Address: [address] [place] [address] Performed By: #### 5 7021-8 ####[facility]OSPITALNCLI [id number] [place] [address] [place] MCV (RBC) [Entitic vol] 90.6 fL Normal 80.0-100.0 [facility] Comment on above: Order Comment: Speci men Type: BLOOD SPECIMENOrdering Facility: [facility] Address: [address] [place] [address] Performed By: #### 5 7021-8 ####[facility] [id number] [place] [address] [place] Monocytes (Bld) [#/Vol] 0.46 10*3/uL Normal <0.87 [facility] Comment on above: Order Comment: Speci men Type: BLOOD SPECIMENOrdering Facility: [facility] Address: [address] [place] [address] Performed By: #### 5 7021-8 ####[facility]OSPITALBANG [id number] [place] [address] [place] Monocytes/100 WBC (Bld) 8.0 % Normal [facility] Comment on above: Order Comment: Speci men Type: BLOOD SPECIMENOrdering Facility: [facility] Address: [address] [place] [address] Performed By: #### 5 7021-8 ####[facility] [id number] [place] [address] [place] Neutrophils (Bld) [#/Vol] 4.59 10*3/uL Normal 1.45-7.50 [facility] Comment on above: Order Comment: Speci men Type: BLOOD SPECIMENOrdering Facility: [facility] Address: [address] [place] [address] Performed By: #### 5 7021-8 ####[facility] [id number] [place] [address] [place] Neutrophils/100 WBC (Bld) 79.4 % Normal [facility] Comment on above: Order Comment: Speci men Type: BLOOD SPECIMENOrdering Facility: [facility] Address: [address] [place] [address] Performed By: #### 5 7021-8 ####[facility] [id number] [place] [address] [place] Nucleated RBC (Bld) [#/Vol] 10*3/uL Normal <0.01 [facility] Comment on above: Order Comment: Speci men Type: BLOOD SPECIMENOrdering Facility: [facility] Address: [address] [place] [address] Performed By: #### 5 7021-8 ####[facility] NAALIA [id number] [place] [address] [place] Nucleated RBC/100 WBC (Bld) [Ratio] 0.0 /100 WBC Normal [facility] Comment on above: Order Comment: Speci men Type: BLOOD SPECIMENOrdering Facility: [facility] Address: [address] [place] [address] Performed By: #### 5 7021-8 ####[facility] HOSPITALGIANNALIA [id number] [place] [address] [place] Platelet mean volume (Bld) [Entitic vol] 9.4 fL Normal 9.0-12.7 [facility] Comment on above: Order Comment: Speci men Type: BLOOD SPECIMENOrdering Facility: [facility] Address: [address] [place] [address] Performed By: #### 5 7021-8 ####[facility] [id number] [place] [address] [place] Platelets (Bld) [#/Vol] 238 10*3/uL Normal 150-400 [facility] Comment on above: Order Comment: Speci men Type: BLOOD SPECIMENOrdering Facility: [facility] Address: [address] [place] [address] Performed By: #### 5 7021-8 ####[facility] NORTHBECKYA [id number] [place] [address] [place] RBC (Bld) [#/Vol] 3.18 10*6/uL Low 4.20-6.00 [facility] Comment on above: Order Comment: Speci men Type: BLOOD SPECIMENOrdering Facility: [facility] Address: [address] [place] [address] Performed By: #### 5 7021-8 ####[facility]PITALNCLIA [id number] [place] [address] [place] WBC (Bld) [#/Vol] 5.78 10*3/uL Normal 3.70-11.00 [facility] Comment on above: Order Comment: Speci men Type: BLOOD SPECIMENOrdering Facility: [facility] Address: [address] [place] [address] Performed By: #### 5 7021-8 ####[facility] [id number] [place] [address] [place] CEA SerPl-mCncon 12-05-2024 Carcinoembryonic Ag [Mass/Vol] 33.0 ng/mL High <=2.9 [facility] Comment on above: Order Comment: Speci [facility] Type: BLOOD SPECIMENOrdering Facility: [facility] Address: [address] [place] [address] Result Comment: Carc inoembryonic antigen test is used as an aid in monitoring response to treatment or recurrence in patients with established colorectal, breast, lung, prostatic, pancreatic, and ovarian carcinomas. Clinical correlation is required.The Carcinoembryonic antigen test was performed using the Bryce Iveth [employer] DXI paramagnetic particle chemiluminescent immunoassay method. Results obtained with different assay methods or kits cannot be used interchangeably. Performed By: #### 2 039-6 ####[facility] LABCLIA [id number] [place] [address] [place] CK SerPl-cCncon 12-05-2024 CK [Catalytic activity/Vol] 76 U/L Normal 51-298 [facility] Comment on above: Order Comment: Speci men Type: BLOOD SPECIMENOrdering Facility: [facility] Address: [address] [place] [address] Performed By: #### 1 9123-9, 2777-1, 37674-9 ####[facility]ITALNCLIA [id number] [place] [address] [place]#### 2157-6 ####[facility] LABCLIA [id number] [place] [id number] [place] CK [Catalytic activity/Vol]o n 12-05-2024 Interpretation and review of laboratory results Normal [facility] CNPNon 12-05-2024 CNPN Normal [facility] metabolic 2000 panelOrdered By: Cody Hurtado on 12-05-2024 Albumin [Mass/Vol] 3.1 g/dL Low 3.9 - 4.9 g/dL [facility] ALP [Catalytic activity/Vol] 76 U/L 38 - 113 U/L [facility] ALT [Catalytic activity/Vol] 24 U/L 10 - 54 U/L [facility] Anion gap [Moles/Vol] 13 mmol/L 8 - 15 mmol/L [facility] AST [Catalytic activity/Vol] 33 U/L 14 - 40 U/L [facility] Bilirubin [Mass/Vol] 0.6 mg/dL 0.2 - 1 .3 mg/dL [facility] Calcium [Mass/Vol] 8.9 mg/dL 8.5 - 10. 2 mg/dL [facility] Chloride [Moles/Vol] 98 mmol/L 98 - 10 7 mmol/L [facility] CO2 [Moles/Vol] 23 mmol/L 22 - 30 mmol/L [facility] Creatinine [Mass/Vol] 0.91 mg/dL 0.73 - 1.22 mg/dL [facility] [facility] GFR/1.73 sq M.predicted among non-blacks MDRD (S/P/Bld) [Vol rate/Area] 87 mL/min/{1.73_m2} - PINF [facility] Comment on above: Estimated Glomerular Filtration Rate (eGFR) is calculated using the 2020 CKD-EPI creatinine equation. This equation utilizes serum creatinine, sex, and age as parameters. The creatinine assay has traceable calibration to isotope dilution-mass spectrometry. Refer to KDIGO guidelines for clinical interpretation. In patients with unstable renal function, e.g. those with acute kidney injury, the eGFR may not accurately reflect actual GFR. Glucose [Mass/Vol] 97 mg/dL 74 - 99 mg/dL [facility] Comment on above: The [place] Di[employer] Association (ADA) provides guidance for cutoff values for fasting glucose and random glucose. The ADA defines fasting as no caloric intake for at least 8 hours. Fasting plasma glucose results between 100 to 125 mg/dL indicate increased risk for diabetes (prediabetes). Fasting plasma glucose results greater than or equal to 126 mg/dL meet the criteria for diagnosis of diabetes. In the absence of unequivocal hyperglycemia, results should be confirmed by repeat testing. In a patient with classic symptoms of hyperglycemia or hyperglycemic crisis, random plasma glucose results greater than or equal to 200 mg/dL meet the criteria for diagnosis of diabetes. Reference: Standards of Medical Care in Diabetes 2016, [place] [employer]. Diabetes Care. 2016.39(Suppl 1). Potassium [Moles/Vol] 3.8 mmol/L 3.7 - 5.1 mmol/L [facility] Protein [Mass/Vol] 7.8 g/dL 6.3 - 8.0 g/dL [facility] Sodium [Moles/Vol] 134 mmol/L Low 136 - 144 mmol/L [facility] Urea nitrogen [Mass/Vol] 16 mg/dL 9 - 24 mg/dL [facility] Comprehensive metabolic 2000 panelon 12-05-2024 Albumin [Mass/Vol] 3.1 g/dL Low 3.9-4.9 [facility] Comment on above: Order Comment: Willam robles Type: BLOOD SPECIMENOrdering Facility: [facility] Address: [address] [place] [address] Performed By: #### 1 9123-9, 27712-27, 85811-2 ####[facility] [id number] [place] [address] [place]#### 2157-6 ####[facility] LABCLIA [id number] [place] [address] [place] ALP [Catalytic activity/Vol] 76 U/L Normal 38-113 [facility] Comment on above: Order Comment: Willam robles Type: BLOOD SPECIMENOrdering Facility: [facility] Address: [address] [place] [address] Performed By: #### 1 9123-9, 2777-, 32544-0 ####[facility] [id number] [place] [address] [place]#### 2157-6 ####[facility] LABCLIA [id number] [place] [id number] [place] ALT [Catalytic activity/Vol] 24 U/L Normal 10-54 [facility] Comment on above: Order Comment: Speci men Type: BLOOD SPECIMENOrdering Facility: [facility] Address: [facility] [place] [address] Performed By: #### 1 9123-9, 2776-06, ####[facility] MILLTOWNCLIA [id number] [place] [address] [place]#### 2157-6 ####[facility] LABCLIA [id number] [place] [address] [place] Anion gap [Moles/Vol] 13 mmol/L Normal 8-15 [facility] Comment on above: Order Comment: Speci men Type: BLOOD SPECIMENOrdering Facility: [facility] Address: [address] [place] [id number] Performed By: #### 1 91239, 2776-06, ####[facility] MILLTOWNCLIA [id number] [place] [address] [place]#### 2157-6 ####[facility] LABCLIA [id number] [place] [address] [place] AST [Catalytic activity/Vol] 33 U/L Normal 14-40 [facility] Comment on above: Order Comment: Speci men Type: BLOOD SPECIMENOrdering Facility: [facility] Address: [address] [place] [id number] Performed By: #### 1 9123-9, 2776-06, ####[facility] MILLTOWNCLIA [id number] [place] [address] [place]#### 2157-6 ####[facility] LABCLIA [id number] [address] [address] [place] Bilirubin [Mass/Vol] 0.6 mg/dL Normal 0.2-1.3 [facility] Comment on above: Order Comment: Speci men Type: BLOOD SPECIMENOrdering Facility: [facility] Address: [address] [place] [address] Performed By: #### 1 9123-9, 2776-06, ####[facility] MILLTOWNCLIA [id number] [place] [address] [place]#### 2157-6 ####[facility] LABCLIA [id number] [address] [address] [place] Calcium [Mass/Vol] 8.9 mg/dL Normal 8.5-10.2 [facility] Comment on above: Order Comment: Speci men Type: BLOOD SPECIMENOrdering Facility: [facility] Address: [address] [place] [address] Performed By: #### 1 91239, 2776-06, ####[facility] MILLTOWNCLIA [id number] [place] [address] [place]#### 2157-6 ####[facility] LABCLIA [id number] [place] [address] [place] Chloride [Moles/Vol] 98 mmol/L Normal 98-107 [facility] Comment on above: Order Comment: Speci men Type: BLOOD SPECIMENOrdering Facility: [facility] Address: [address] [place] [id number] Performed By: #### 1 9123-9, 2776-06, ####[facility] MILLTOWNCLIA [id number] [place] [address] [place]#### 2157-6 ####[facility] LABCLIA [id number] [address] [address] [place] CO2 [Moles/Vol] 23 mmol/L Normal 22-30 [facility] Comment on above: Order Comment: Speci men Type: BLOOD SPECIMENOrdering Facility: [facility] Address: [address] [place] [address] Performed By: #### 1 9123-9, 27712-27, 98344-7 ####[facility] [id number] [place] [address] [place]#### 2157-6 ####[facility] LABCLIA [id number] [address] [address] [address] [place] Creatinine [Mass/Vol] 0.91 mg/dL Normal 0.73-1.22 [facility] Comment on above: Order Comment: Speci men Type: BLOOD SPECIMENOrdering Facility: [facility] Address: [address] [place] [address] Performed By: #### 1 9123-9, 27712-27, 57000-2 ####[facility] NORTHLIA [id number] [place] [address] [place]#### 2157-6 ####[facility] LABCLIA [id number] [address] [address] [place] Creatinine and Glomerular filtration rate.predicted panel (S/P/Bld) 87 mL/min/1.73m??? Normal >=60 [facility] Comment on above: Order Comment: Speci men Type: BLOOD SPECIMENOrdering Facility: [facility] Address: [address] [place], [place] [address] Result Comment: Rod mated Glomerular Filtration Rate (eGFR) is calculated using the 2020 CKD-EPI creatinine equation. This equation utilizes serum creatinine, sex, and age as parameters. The creatinine assay has traceable calibration to isotope dilution-mass spectrometry. Refer to KDIGO guidelines for clinical interpretation. In patients with unstable renal function, e.g. those with acute kidney injury, the eGFR may not accurately reflect actual GFR. Performed By: #### 1 9123-9, 2776-, ####[facility] [id number] [place] [address] [place]#### 2157-6 ####[facility] LABCLIA [id number] [place] [address] [place] Glucose [Mass/Vol] 97 mg/dL Normal 74-99 [facility] Comment on above: Order Comment: Speci men Type: BLOOD SPECIMENOrdering Facility: [facility] Address: [address] [place] [address] Result Comment: The [place] Diabetes Association (ADA) provides guidance for cutoff values for fasting glucose and random glucose. The ADA defines fasting as no caloric intake for at least 8 hours. Fasting plasma glucose results between 100 to 125 mg/dL indicate increased risk for diabetes (prediabetes).Fasting plasma glucose results greater than or equal to 126 mg/dL meet the criteria for diagnosis of diabetes. In the absence of unequivocal hyperglycemia, results should be confirmed by repeat testing. In a patient with classic symptoms of hyperglycemia or hyperglycemic crisis, random plasma glucose results greater than or equal to 200 mg/dL meet the criteria for diagnosis of diabetes.Reference: Standards of Medical Care in Diabetes 2016, [place] [employer]. Diabetes Care. 2016.39(Suppl 1). Performed By: #### 1 9123-9, 2776-06, ####[facility] NORTHLIA [id number] [place] [address] [place]#### 2157-6 ####[facility] LABCLIA [id number] [address] [address] [place] Potassium [Moles/Vol] 3.8 mmol/L Normal 3.7-5.1 [facility] Comment on above: Order Comment: Speci men Type: BLOOD SPECIMENOrdering Facility: [facility] Address: [facility] [place] [address] Performed By: #### 1 9123-9, 2776-06, ####[facility] MILLTOWNCLIA [id number] [place] [address] [place]#### 2157-6 ####[facility] LABCLIA [id number] [address] [address] [place] Protein [Mass/Vol] 7.8 g/dL Normal 6.3-8.0 [facility] Comment on above: Order Comment: Speci men Type: BLOOD SPECIMENOrdering Facility: [facility] Address: [address] [place] [address] Performed By: #### 1 91239, 2776-06, ####[facility] MILLTOWNCLIA [id number] [place] [address] [place]#### 2157-6 ####[facility] LABCLIA [id number] [address] [address] [place] Sodium [Moles/Vol] 134 mmol/L Low 136-144 [facility] Comment on above: Order Comment: Speci men Type: BLOOD SPECIMENOrdering Facility: [facility] Address: [address] [place] [address] Performed By: #### 1 9123-9, 2776-06, ####[facility] MILLWNCLIA [id number] [place] [address] [place]#### 2157-6 ####[facility] LABCLIA [id number] [address] [address] [place] Urea nitrogen [Mass/Vol] 16 mg/dL Normal 9-24 [facility] Comment on above: Order Comment: Speci men Type: BLOOD SPECIMENOrdering Facility: [facility] Address: [facility] [place] [address] Performed By: #### 1 9123-9, 2776-1, 91343-3 ####[facility] NORTHLIA [id number] [place] [address] [place]#### 2157-6 ####[facility] LABCLIA [id number] [address] [facility] Laboratory - Chemistry and C hemistry - challengeon 12-05-2024 CK [Catalytic activity/Vol] 76 U/L 51 - 298 U/L [facility] Laboratory - Chemistry and C hemistry - challengeOrdered By: Mady Cabello on 12-05-2024 Phosphate [Mass/Vol] 2.2 mg/dL Low 2.7 - 4 .8 mg/dL [facility] MAGNESIUMon 12-05-2024 Magnesium [Mass/Vol] 1.4 mg/dL Low 1.7 - 2 .3 mg/dL [facility] Magnesium SerPl-mCncon 12-05 Magnesium [Mass/Vol] 1.4 mg/dL Low 1.7-2.3 [facility] Comment on above: Order Comment: Speci men Type: BLOOD SPECIMENOrdering Facility: [facility] Address: [facility] [place] [address] Performed By: #### 1 9123-9, 2776-06, 32991-5 ####[facility]ITAL[facility]CLIA [id number] [place] [address] [place]#### 2157-6 ####[facility] LABCLIA [id number] [address] [place] No Panel Informationon 12-05 Interpretation and review of laboratory results Abnormal [facility] Phosphate SerPl-mCncon 12-05 Phosphate [Mass/Vol] 2.2 mg/dL Low 2.7-4.8 [facility] Comment on above: Order Comment: Speci men Type: BLOOD SPECIMENOrdering Facility: [facility] Address: [address] [facility] [place] [address] Performed By: #### 1 9123-9, 2777-1, 10016-7 ####[facility] [id number] [place] [address] [place]#### 2157-6 ####[facility] LABCLIA [id number] [address] [place] Phosphate [Mass/Vol]Ordered By: Mady Cabello on 12-05-2024 Interpretation and review of laboratory results Abnormal [facility] UA DIP, URINE (POC)on 2024 BILIRUBIN UA (POCT) Negative Negative [facility] CLARITY UA (POCT) Clear [facility] COLOR UA (POCT) Dark yellow [facility] GLUCOSE UA (POCT) Negative Negative mg/dL [facility] Hemoglobin Ql (U) Negative Negative [facility] Interpretation and review of laboratory results Abnormal [facility] KETONE UA (POCT) Negative Negative mg/dL [facility] LEUKOCYTES UA (POCT) Negative Negative [facility] NITRITE UA (POCT) Negative Negative [facility] PH UA (POCT) 6 4.5 - 8.0 [facility] Protein Ql (U) 100 mg/dL Abnormal Negative [facility] SPECIFIC GRAVITY UA (POCT) >=1.030 1.005 - 1.030 [facility] UROBILINOGEN UA (POCT) 2 Abnormal Normal E.U./dL [facility] Location:[facility], [address] [facility], [place], [place], [address] [place] [address] POINT OF CARE [facility] CBC W Auto Differential pane l (Bld)on 11-30-2024 Basophils (Bld) [#/Vol] 0.05 10*3/uL NINF [facility] Basophils/100 WBC (Bld) 0.6 % [facility] Differential cell count method Nom (Bld) Auto [facility] Eosinophils (Bld) [#/Vol] 0.1 10*3/uL [facility] Eosinophils/100 WBC (Bld) 1.1 % [facility] Erythrocyte distribution width (RBC) [Ratio] 20.1 % High 11.5 - 15.0 % [facility] Hematocrit (Bld) [Volume fraction] 29.5 % Low 39.0 - 51.0 % [facility] Hemoglobin (Bld) [Mass/Vol] 8.8 g/dL Low 13.0 - 17.0 g/dL [facility] Immature granulocytes (Bld) [#/Vol] 0.04 10*3/uL [facility] Immature granulocytes/100 WBC (Bld) 0.4 % [facility] Interpretation and review of laboratory results Abnormal [facility] Lymphocytes (Bld) [#/Vol] 0.82 10*3/uL Low [facility] Lymphocytes/100 WBC (Bld) 9.1 % [facility] MCH (RBC) [Entitic mass] 27.2 pg 26.0 - 34.0 pg [facility] MCHC (RBC) [Mass/Vol] 29.8 g/dL Low 30.5 - 36.0 g/dL [facility] MCV (RBC) [Entitic vol] 91.3 fL 80.0 - 100.0 fL [facility] Monocytes (Bld) [#/Vol] 0.64 10*3/uL [facility] Monocytes/100 WBC (Bld) 7.1 % [facility] Neutrophils (Bld) [#/Vol] 7.33 10*3/uL [facility] Neutrophils/100 WBC (Bld) 81.7 % [facility] Nucleated RBC (Bld) [#/Vol] [facility] Nucleated RBC/100 WBC (Bld) [Ratio] 0 % /100 WBC [facility] Platelet mean volume (Bld) [Entitic vol] 9.1 fL 9.0 - 12.7 fL [facility] Platelets (Bld) [#/Vol] 226 10*3/uL [facility] RBC (Bld) [#/Vol] 3.23 10*6/uL Low 4.20 - 6.0 0 m/uL [facility] WBC (Bld) [#/Vol] 8.98 10*3/uL [facility] Basophils (Bld) [#/Vol] 0.05 10*3/uL Normal <0.11 [facility] Comment on above: Order Comment: Speci men Type: BLOOD SPECIMENOrdering Facility: [facility] Address: [address] [place] [address] Performed By: #### 5 7021-8 ####[facility] MILLWNCLIA [id number] [place] [address] [place] Basophils/100 WBC (Bld) 0.6 % Normal [facility] Comment on above: Order Comment: Speci men Type: BLOOD SPECIMENOrdering Facility: [facility] Address: [address] [place] [address] Performed By: #### 5 7021-8 ####[facility] [id number] [place] [address] [place] Differential cell count method Nom (Bld) Auto Normal [facility] Comment on above: Order Comment: Speci men Type: BLOOD SPECIMENOrdering Facility: [facility] Address: [address] [place] [address] Performed By: #### 5 7021-8 ####[facility] [id number] [place] [address] [place] Eosinophils (Bld) [#/Vol] 0.10 10*3/uL Normal <0.46 [facility] Comment on above: Order Comment: Speci men Type: BLOOD SPECIMENOrdering Facility: [facility] Address: [address] [place] [address] Performed By: #### 5 7021-8 ####[facility] [id number] [place] [address] [place] Eosinophils/100 WBC (Bld) 1.1 % Normal [facility] Comment on above: Order Comment: Speci men Type: BLOOD SPECIMENOrdering Facility: [facility] Address: [address] [place], [place] [address] Performed By: #### 5 7021-8 ####[facility] TEDDYNiraliNCLIA [id number] [place] [address] [place] Erythrocyte distribution width (RBC) [Ratio] 20.1 % High 11.5-15.0 [facility] Comment on above: Order Comment: Speci men Type: BLOOD SPECIMENOrdering Facility: [facility] Address: [address] [place] [address] Performed By: #### 5 7021-8 ####[facility]ITALNCLIA [id number] [place] [address] [place] Hematocrit (Bld) [Volume fraction] 29.5 % Low 39.0-51.0 [facility] Comment on above: Order Comment: Speci men Type: BLOOD SPECIMENOrdering Facility: [facility] Address: [address] [place] [address] Performed By: #### 5 7021-8 ####[facility]OSPITALNCBECKYA [id number] [place] [address] [place] Hemoglobin (Bld) [Mass/Vol] 8.8 g/dL Low 13.0-17.0 [facility] Comment on above: Order Comment: Speci men Type: BLOOD SPECIMENOrdering Facility: [facility] Address: [address] [place] [address] Performed By: #### 5 7021-8 ####[facility] HOSPITALGIANNALIA [id number] [place] [address] [place] Immature granulocytes (Bld) [#/Vol] 0.04 10*3/uL Normal <0.10 [facility] Comment on above: Order Comment: Speci men Type: BLOOD SPECIMENOrdering Facility: [facility] Address: [address] [place] [address] Performed By: #### 5 7021-8 ####[facility] HOSPITALGIANNAMckenna [id number] [place] [address] [place] Immature granulocytes/100 WBC (Bld) 0.4 % Normal [facility] Comment on above: Order Comment: Speci men Type: BLOOD SPECIMENOrdering Facility: [facility] Address: [address] [place] [address] Performed By: #### 5 7021-8 ####[facility] [id number] [place] [address] [place] Lymphocytes (Bld) [#/Vol] 0.82 10*3/uL Low 1.00-4.00 [facility] Comment on above: Order Comment: Speci men Type: BLOOD SPECIMENOrdering Facility: [facility] Address: [address] [place] [address] Performed By: #### 5 7021-8 ####[facility] [id number] [place] [address] [place] Lymphocytes/100 WBC (Bld) 9.1 % Normal [facility] Comment on above: Order Comment: Speci men Type: BLOOD SPECIMENOrdering Facility: [facility] Address: [address] [place] [address] Performed By: #### 5 7021-8 ####[facility] [id number] [place] [address] [place] MCH (RBC) [Entitic mass] 27.2 pg Normal 26.0-34.0 [facility] Comment on above: Order Comment: Speci men Type: BLOOD SPECIMENOrdering Facility: [facility] Address: [address] [place] [address] Performed By: #### 5 7021-8 ####[facility] NORTHLI [id number] [place] [address] [place] MCHC (RBC) [Mass/Vol] 29.8 g/dL Low 30.5-36.0 [facility] Comment on above: Order Comment: Speci men Type: BLOOD SPECIMENOrdering Facility: [facility] Address: [address] [place] [address] Performed By: #### 5 7021-8 ####[facility] HOSPITALNCLI [id number] [place] [address] [place] MCV (RBC) [Entitic vol] 91.3 fL Normal 80.0-100.0 [facility] Comment on above: Order Comment: Speci men Type: BLOOD SPECIMENOrdering Facility: [facility] Address: [address] [place] [address] Performed By: #### 5 7021-8 ####[facility]ITALNCL[facility] [id number] [place] [address] [place] Monocytes (Bld) [#/Vol] 0.64 10*3/uL Normal <0.87 [facility] Comment on above: Order Comment: Speci men Type: BLOOD SPECIMENOrdering Facility: [facility] Address: [address] [place] [address] Performed By: #### 5 7021-8 ####[facility]ITALNCLIA [id number] [place] [address] [place] Monocytes/100 WBC (Bld) 7.1 % Normal [facility] Comment on above: Order Comment: Speci men Type: BLOOD SPECIMENOrdering Facility: [facility] Address: [address] [place] [address] Performed By: #### 5 7021-8 ####[facility]ITALNCLIA [id number] [place] [address] [place] Neutrophils (Bld) [#/Vol] 7.33 10*3/uL Normal 1.45-7.50 [facility] Comment on above: Order Comment: Speci men Type: BLOOD SPECIMENOrdering Facility: [facility] Address: [address] [place] [address] Performed By: #### 5 7021-8 ####[facility] TEDDYBAYARDGIANNALIA [id number] [place] [address] [place] Neutrophils/100 WBC (Bld) 81.7 % Normal [facility] Comment on above: Order Comment: Speci men Type: BLOOD SPECIMENOrdering Facility: [facility] Address: [address] [place] [address] Performed By: #### 5 7021-8 ####[facility]ITALNCLIA [id number] [place] [address] [place] Nucleated RBC (Bld) [#/Vol] 10*3/uL Normal <0.01 [facility] Comment on above: Order Comment: Speci men Type: BLOOD SPECIMENOrdering Facility: [facility] Address: [address] [place] [address] Performed By: #### 5 7021-8 ####[facility] [id number] [place] [address] [place] Nucleated RBC/100 WBC (Bld) [Ratio] 0.0 /100 WBC Normal [facility] Comment on above: Order Comment: Speci men Type: BLOOD SPECIMENOrdering Facility: [facility] Address: [address] [place] [address] Performed By: #### 5 7021-8 ####[facility] [facility] [id number] [place] [address] [place] Platelet mean volume (Bld) [Entitic vol] 9.1 fL Normal 9.0-12.7 [facility] Comment on above: Order Comment: Speci men Type: BLOOD SPECIMENOrdering Facility: [facility] Address: [address] [place] [address] Performed By: #### 5 7021-8 ####[facility] [id number] [place] [address] [place] Platelets (Bld) [#/Vol] 226 10*3/uL Normal 150-400 [facility] Comment on above: Order Comment: Speci men Type: BLOOD SPECIMENOrdering Facility: [facility] Address: [address] [place] [address] Performed By: #### 5 7021-8 ####[facility] [id number] [place] [address] [place] RBC (Bld) [#/Vol] 3.23 10*6/uL Low 4.20-6.00 [facility] Comment on above: Order Comment: Speci men Type: BLOOD SPECIMENOrdering Facility: [facility] Address: [address] [place] [address] Performed By: #### 5 7021-8 ####[facility]ITAL[facility]CL[facility] [id number] [place] [address] [place] WBC (Bld) [#/Vol] 8.98 10*3/uL Normal 3.70-11.00 [facility] Comment on above: Order Comment: Speci men Type: BLOOD SPECIMENOrdering Facility: [facility] Address: [address] [place] [address] Performed By: #### 5 7021-8 ####[facility]NCLIA [id number] [place] [address] [place] CEA SerPl-mCncon 11-30-2024 Carcinoembryonic Ag [Mass/Vol] 36.0 ng/mL High <=2.9 [facility] Comment on above: Order Comment: Speci men Type: BLOOD SPECIMENOrdering Facility: [facility] Address: [address] [place] [address] Result Comment: Carc inoembryonic antigen test is used as an aid in monitoring response to treatment or recurrence in patients with established colorectal, breast, lung, prostatic, pancreatic, and ovarian carcinomas. Clinical correlation is required.The Carcinoembryonic antigen test was performed using the Bryce Iveth Unicel DXI paramagnetic particle chemiluminescent immunoassay method. Results obtained with different assay methods or kits cannot be used interchangeably. Performed By: #### 2 039-6 ####[facility] LABCLIA [id number] [address]OL[address] [address] OF [facility] Comprehensive metabolic 2000 panelOrdered By: Cody Hurtado on 11-30-2024 Albumin [Mass/Vol] 3.1 g/dL Low 3.9 - 4.9 g/dL [facility] ALP [Catalytic activity/Vol] 78 U/L 38 - 113 U/L [facility] ALT [Catalytic activity/Vol] 26 U/L 10 - 54 U/L [facility] Anion gap [Moles/Vol] 12 mmol/L 8 - 15 mmol/L [facility] AST [Catalytic activity/Vol] 37 U/L 14 - 40 U/L [facility] Bilirubin [Mass/Vol] 1.3 mg/dL 0.2 - 1 .3 mg/dL [facility] Calcium [Mass/Vol] 9.2 mg/dL 8.5 - 10. 2 mg/dL [facility] Chloride [Moles/Vol] 98 mmol/L 98 - 10 7 mmol/L [facility] CO2 [Moles/Vol] 22 mmol/L 22 - 30 mmol/L [facility] Creatinine [Mass/Vol] 0.9 mg/dL 0.73 - 1.22 mg/dL [facility] GFR/1.73 sq M.predicted among non-blacks MDRD (S/P/Bld) [Vol rate/Area] 88 mL/min/{1.73_m2} - PINF [facility] Comment on above: Estimated Glomerular Filtration Rate (eGFR) is calculated using the 2020 CKD-EPI creatinine equation. This equation utilizes serum creatinine, sex, and age as parameters. The creatinine assay has traceable calibration to isotope dilution-mass spectrometry. Refer to KDIGO guidelines for clinical interpretation. In patients with unstable renal function, e.g. those with acute kidney injury, the eGFR may not accurately reflect actual GFR. Glucose [Mass/Vol] 157 mg/dL High 74 - 99 mg/dL [facility] Comment on above: The [place] Di[employer] [place] Association (ADA) provides guidance for cutoff values for fasting glucose and random glucose. The ADA defines fasting as no caloric intake for at least 8 hours. Fasting plasma glucose results between 100 to 125 mg/dL indicate increased risk for diabetes (prediabetes). Fasting plasma glucose results greater than or equal to 126 mg/dL meet the criteria for diagnosis of diabetes. In the absence of unequivocal hyperglycemia, results should be confirmed by repeat testing. In a patient with classic symptoms of hyperglycemia or hyperglycemic crisis, random plasma glucose results greater than or equal to 200 mg/dL meet the criteria for diagnosis of diabetes. Reference: Standards of Medical Care in Diabetes 2016, [place] [employer]. Diabetes Care. 2016.39(Suppl 1). Interpretation and review of laboratory results Abnormal [facility] Potassium [Moles/Vol] 4.1 mmol/L 3.7 - 5.1 mmol/L [facility] Protein [Mass/Vol] 8.1 g/dL High 6.3 - 8.0 g/dL [facility] Sodium [Moles/Vol] 132 mmol/L Low 136 - 144 mmol/L [facility] Urea nitrogen [Mass/Vol] 20 mg/dL 9 - 24 mg/dL [facility] Comprehensive metabolic 2000 panelon 11-30-2024 Albumin [Mass/Vol] 3.1 g/dL Low 3.9-4.9 [facility] Comment on above: Order Comment: Speci men Type: BLOOD SPECIMENOrdering Facility: [facility] Address: [address] [place] [address] Performed By: #### 2 4323-8 ####[facility] [id number] [place] [address] [place] ALP [Catalytic activity/Vol] 78 U/L Normal 38-113 [facility] Comment on above: Order Comment: Speci men Type: BLOOD SPECIMENOrdering Facility: [facility] Address: [address] [place] [address] Performed By: #### 2 4323-8 ####[facility] [id number] [place] [address] [place] ALT [Catalytic activity/Vol] 26 U/L Normal 10-54 [facility] Comment on above: Order Comment: Speci men Type: BLOOD SPECIMENOrdering Facility: [facility] Address: [address] [place] [address] Performed By: #### 2 4323-8 ####[facility] CLAU MILLTOWNCLIA [id number] [place] [address] [place] Anion gap [Moles/Vol] 12 mmol/L Normal 8-15 [facility] Comment on above: Order Comment: Speci men Type: BLOOD SPECIMENOrdering Facility: [facility] Address: [address] [place] [address] Performed By: #### 2 4323-8 ####[facility] MILLWNCLIA [id number] [place] [address] [place] AST [Catalytic activity/Vol] 37 U/L Normal 14-40 [facility] Comment on above: Order Comment: Speci men Type: BLOOD SPECIMENOrdering Facility: [facility] Address: [address] [place] [address] Performed By: #### 2 4323-8 ####[facility] CLAUMAYO MEMORIAL HOSPITALWNCLIA [id number] [place] [address] [place] Bilirubin [Mass/Vol] 1.3 mg/dL Normal 0.2-1.3 [facility] Comment on above: Order Comment: Speci men Type: BLOOD SPECIMENOrdering Facility: [facility] Address: [address] [place] [address] Performed By: #### 2 4323-8 ####[facility] CLAU MILLTOWNCLIA [id number] [place] [address] [place] Calcium [Mass/Vol] 9.2 mg/dL Normal 8.5-10.2 [facility] Comment on above: Order Comment: Speci men Type: BLOOD SPECIMENOrdering Facility: [facility] Address: [address] [place] [address] Performed By: #### 2 4323-8 ####[facility] MILLTOWNCLIA [id number] [place] [address] [place] Chloride [Moles/Vol] 98 mmol/L Normal 98-107 [facility] Comment on above: Order Comment: Speci men Type: BLOOD SPECIMENOrdering Facility: [facility] Address: [address] [place] [address] Performed By: #### 2 4323-8 ####[facility]ITALNCLIA [id number] [place] [address] [place] CO2 [Moles/Vol] 22 mmol/L Normal 22-30 [facility] Comment on above: Order Comment: Speci men Type: BLOOD SPECIMENOrdering Facility: [facility] Address: [address] [place] [address] Performed By: #### 2 4323-8 ####[facility] [id number] [place] [address] [place] Creatinine [Mass/Vol] 0.90 mg/dL Normal 0.73-1.22 [facility] Comment on above: Order Comment: Speci men Type: BLOOD SPECIMENOrdering Facility: [facility] Address: [address] [place] [address] Performed By: #### 2 4323-8 ####[facility]ITALNCLIA [id number] [address] OF [facility] Creatinine and Glomerular filtration rate.predicted panel (S/P/Bld) 88 mL/min/1.73m??? Normal >=60 [facility] Comment on above: Order Comment: Speci men Type: BLOOD SPECIMENOrdering Facility: [facility] Address: [address] [place] [address] Result Comment: Rod mated Glomerular Filtration Rate (eGFR) is calculated using the 2020 CKD-EPI creatinine equation. This equation utilizes serum creatinine, sex, and age as parameters. The creatinine assay has traceable calibration to isotope dilution-mass spectrometry. Refer to KDIGO guidelines for clinical interpretation. In patients with unstable renal function, e.g. those with acute kidney injury, the eGFR may not accurately reflect actual GFR. Performed By: #### 2 4323-8 ####[facility] MILLTOWNCLIA [id number] [place] [address] [place] Glucose [Mass/Vol] 157 mg/dL High 74-99 [facility] Comment on above: Order Comment: Speci men Type: BLOOD SPECIMENOrdering Facility: [facility] Address: [address] [place] [address] Result Comment: The [place] Diabetes Association (ADA) provides guidance for cutoff values for fasting glucose and random glucose. The ADA defines fasting as no caloric intake for at least 8 hours. Fasting plasma glucose results between 100 to 125 mg/dL indicate increased risk for diabetes (prediabetes).Fasting plasma glucose results greater than or equal to 126 mg/dL meet the criteria for diagnosis of diabetes. In the absence of unequivocal hyperglycemia, results should be confirmed by repeat testing. In a patient with classic symptoms of hyperglycemia or hyperglycemic crisis, random plasma glucose results greater than or equal to 200 mg/dL meet the criteria for diagnosis of diabetes.Reference: Standards of Medical Care in Diabetes 2016, [place] [employer]. Diabetes Care. 2016.39(Suppl 1). Performed By: #### 2 4323-8 ####[facility] MILLTOWNCLIA [id number] [place] [address] [place] Potassium [Moles/Vol] 4.1 mmol/L Normal 3.7-5.1 [facility] Comment on above: Order Comment: [place] men Type: BLOOD SPECIMENOrdering Facility: [facility] Address: [address] [place] [address] Performed By: #### 2 4323-8 ####[facility] MILLTOWNCLIA [id number] [place] [address] [place] Protein [Mass/Vol] 8.1 g/dL High 6.3-8.0 [facility] Comment on above: Order Comment: Speci men Type: BLOOD SPECIMENOrdering Facility: [facility] Address: [address] [place] [address] Performed By: #### 2 4323-8 ####[facility] TEDDYGANESH [id number] [place] [address] [place] Sodium [Moles/Vol] 132 mmol/L Low 136-144 [facility] Comment on above: Order Comment: Speci men Type: BLOOD SPECIMENOrdering Facility: [facility] Address: [address] [place] [address] Performed By: #### 2 4323-8 ####[facility] [id number] [place] [address] [place] Urea nitrogen [Mass/Vol] 20 mg/dL Normal 9-24 [facility] Comment on above: Order Comment: Speci men Type: BLOOD SPECIMENOrdering Facility: [facility] Address: [address] [place] [address] Performed By: #### 2 4323-8 ####[facility] [id number] [address] [place] UA DIP, URINE (POC)on 2024 BILIRUBIN UA (POCT) Small Abnormal Negative [facility] CLARITY UA (POCT) Cloudy [facility] COLOR UA (POCT) Red [facility] GLUCOSE UA (POCT) Negative Negative mg/dL [facility] Hemoglobin Ql (U) Negative Negative [facility] Interpretation and review of laboratory results Abnormal [facility] KETONE UA (POCT) Trace Negative mg/dL [facility] LEUKOCYTES UA (POCT) Negative Negative [facility] NITRITE UA (POCT) Negative Negative [facility] PH UA (POCT) 5.5 4.5 - 8.0 [facility] Protein Ql (U) 100 mg/dL Abnormal Negative [facility] SPECIFIC GRAVITY UA (POCT) >=1.030 1.005 - 1.030 [facility] UROBILINOGEN UA (POCT) 2 Abnormal Normal E.U./dL [facility] Location:[facility], [address], [place], [address] [facility] POINT OF CARE [facility] BRCon 11-23-2024 RC Normal [facility] Comment on above: Result Comment: [id number] OP RC TRANSFUSED 11/24/24 0816 [id number] OP RC TRANSFUSED 11/24/24 1017 Performed By: #### B , BTS #### [facility] [address] [place], [place], [id number] CBC W Auto Differential pane l (Bld)on 11-23-2024 Basophils (Bld) [#/Vol] 0.06 10*3/uL [facility] Basophils/100 WBC (Bld) 0.9 % [facility] Differential cell count method Nom (Bld) Auto [facility] Eosinophils (Bld) [#/Vol] 0.16 10*3/uL [facility] Eosinophils/100 WBC (Bld) 2.3 % [facility] Erythrocyte distribution width (RBC) [Ratio] 22.8 % High 11.5 - 15.0 % [facility] Hematocrit (Bld) [Volume fraction] 22.8 % Low 39.0 - 51.0 % [facility] Hemoglobin (Bld) [Mass/Vol] 6.8 g/dL Low 13.0 - 17.0 g/dL [facility] Immature granulocytes (Bld) [#/Vol] 0.04 10*3/uL [facility] Immature granulocytes/100 WBC (Bld) 0.6 % [facility] Interpretation and review of laboratory results Abnormal [facility] Lymphocytes (Bld) [#/Vol] 0.9 10*3/uL Low [facility] Lymphocytes/100 WBC (Bld) 13.1 % [facility] MCH (RBC) [Entitic mass] 27.5 pg 26.0 - 34.0 pg [facility] MCHC (RBC) [Mass/Vol] 29.8 g/dL Low 30.5 - 36.0 g/dL [facility] MCV (RBC) [Entitic vol] 92.3 fL 80.0 - 100.0 fL [facility] Monocytes (Bld) [#/Vol] 0.79 10*3/uL NINF [facility] Monocytes/100 WBC (Bld) 11.5 % [facility] Neutrophils (Bld) [#/Vol] 4.92 10*3/uL [facility] Neutrophils/100 WBC (Bld) 71.6 % [facility] Nucleated RBC (Bld) [#/Vol] NINF [facility] Nucleated RBC/100 WBC (Bld) [Ratio] 0 % /100 WBC [facility] Platelet mean volume (Bld) [Entitic vol] 9.7 fL 9.0 - 12.7 fL [facility] Platelets (Bld) [#/Vol] 250 10*3/uL [facility] RBC (Bld) [#/Vol] 2.47 10*6/uL Low 4.20 - 6.0 0 m/uL [facility] WBC (Bld) [#/Vol] 6.87 10*3/uL [facility] Basophils (Bld) [#/Vol] 0.06 10*3/uL Normal <0.11 [facility] Comment on above: Order Comment: Speci men Type: BLOOD SPECIMENOrdering Facility: [facility] Address: [address] [place] [address] Performed By: #### 5 7021-8 ####[facility] [id number] [place] [address] [place] Basophils/100 WBC (Bld) 0.9 % Normal [facility] Comment on above: Order Comment: Speci men Type: BLOOD SPECIMENOrdering Facility: [facility] Address: [address] [place] [address] Performed By: #### 5 7021-8 ####[facility] [id number] [place] [address] [place] Differential cell count method Nom (Bld) Auto Normal [facility] Comment on above: Order Comment: Speci men Type: BLOOD SPECIMENOrdering Facility: [facility] Address: [address] [place] [address] Performed By: #### 5 7021-8 ####[facility]ENWHILIA [id number] [place] [address] [place] Eosinophils (Bld) [#/Vol] 0.16 10*3/uL Normal <0.46 [facility] Comment on above: Order Comment: Speci men Type: BLOOD SPECIMENOrdering Facility: [facility] Address: [address] [place] [address] Performed By: #### 5 7021-8 ####[facility] [id number] [place] [address] [place] Eosinophils/100 WBC (Bld) 2.3 % Normal [facility] Comment on above: Order Comment: Speci men Type: BLOOD SPECIMENOrdering Facility: [facility] Address: [address] [place] [address] Performed By: #### 5 7021-8 ####[facility] [id number] [place] [address] [place] Erythrocyte distribution width (RBC) [Ratio] 22.8 % High 11.5-15.0 [facility] Comment on above: Order Comment: Speci men Type: BLOOD SPECIMENOrdering Facility: [facility] Address: [address] [place] [address] Performed By: #### 5 7021-8 ####[facility] [id number] [place] [address] [place] Hematocrit (Bld) [Volume fraction] 22.8 % Low 39.0-51.0 [facility] Comment on above: Order Comment: Speci men Type: BLOOD SPECIMENOrdering Facility: [facility] Address: [address] [place] [address] Performed By: #### 5 7021-8 ####[facility]ITALNCLI [id number] [place] [address] [place] Hemoglobin (Bld) [Mass/Vol] 6.8 g/dL Low 13.0-17.0 [facility] Comment on above: Order Comment: Speci men Type: BLOOD SPECIMENOrdering Facility: [facility] Address: [address] [place] [address] Performed By: #### 5 7021-8 ####[facility] [id number] [place] [address] [place] Immature granulocytes (Bld) [#/Vol] 0.04 10*3/uL Normal <0.10 [facility] Comment on above: Order Comment: Speci men Type: BLOOD SPECIMENOrdering Facility: [facility] Address: [address] [place] [address] Performed By: #### 5 7021-8 ####[facility] [id number] [address] [place] Immature granulocytes/100 WBC (Bld) 0.6 % Normal [facility] Comment on above: Order Comment: Speci men Type: BLOOD SPECIMENOrdering Facility: [facility] Address: [address] [place] [address] Performed By: #### 5 7021-8 ####[facility] [id number] [place] [address] [place] Lymphocytes (Bld) [#/Vol] 0.90 10*3/uL Low 1.00-4.00 [facility] Comment on above: Order Comment: Speci men Type: BLOOD SPECIMENOrdering Facility: [facility] Address: [address] [place] [address] Performed By: #### 5 7021-8 ####[facility] [id number] [place] [address] [place] Lymphocytes/100 WBC (Bld) 13.1 % Normal [facility] Comment on above: Order Comment: Speci men Type: BLOOD SPECIMENOrdering Facility: [facility] Address: [address] [place] [address] Performed By: #### 5 7021-8 ####[facility] TEDDYBAYARDBANG [id number] [place] [address] [place] MCH (RBC) [Entitic mass] 27.5 pg Normal 26.0-34.0 [facility] Comment on above: Order Comment: Speci men Type: BLOOD SPECIMENOrdering Facility: [facility] Address: [address] [place] [address] Performed By: #### 5 7021-8 ####[facility] [id number] [place] [address] [place] MCHC (RBC) [Mass/Vol] 29.8 g/dL Low 30.5-36.0 [facility] Comment on above: Order Comment: Speci men Type: BLOOD SPECIMENOrdering Facility: [facility] Address: [address] [place] [address] Performed By: #### 5 7021-8 ####[facility] [id number] [place] [address] [place] MCV (RBC) [Entitic vol] 92.3 fL Normal 80.0-100.0 [facility] Comment on above: Order Comment: Speci men Type: BLOOD SPECIMENOrdering Facility: [facility] Address: [address] [place] [address] Performed By: #### 5 7021-8 ####[facility] [id number] [place] [address] [place] Monocytes (Bld) [#/Vol] 0.79 10*3/uL Normal <0.87 [facility] Comment on above: Order Comment: Speci men Type: BLOOD SPECIMENOrdering Facility: [facility] Address: [address] [place] [address] Performed By: #### 5 7021-8 ####[facility] MILLWNCLIA [id number] [place] [address] [place] Monocytes/100 WBC (Bld) 11.5 % Normal [facility] Comment on above: Order Comment: Speci men Type: BLOOD SPECIMENOrdering Facility: [facility] Address: [address] [place] [address] Performed By: #### 5 7021-8 ####[facility]ITALNCLIA [id number] [place] [address] [place] Neutrophils (Bld) [#/Vol] 4.92 10*3/uL Normal 1.45-7.50 [facility] Comment on above: Order Comment: Speci men Type: BLOOD SPECIMENOrdering Facility: [facility] Address: [address] [place] [address] Performed By: #### 5 7021-8 ####[facility] NORTHLIA [id number] [place] [address] [place] Neutrophils/100 WBC (Bld) 71.6 % Normal [facility] Comment on above: Order Comment: Speci men Type: BLOOD SPECIMENOrdering Facility: [facility] Address: [address] [place] [address] Performed By: #### 5 7021-8 ####[facility] NORTHLIA [id number] [place] [address] [place] Nucleated RBC (Bld) [#/Vol] 10*3/uL Normal <0.01 [facility] Comment on above: Order Comment: Speci men Type: BLOOD SPECIMENOrdering Facility: [facility] Address: [address] [place] [address] Performed By: #### 5 7021-8 ####[facility]ITALNCLIA [id number] [place] [address] [place] Nucleated RBC/100 WBC (Bld) [Ratio] 0.0 /100 WBC Normal [facility] Comment on above: Order Comment: Speci men Type: BLOOD SPECIMENOrdering Facility: [facility] Address: [address] [place] [address] Performed By: #### 5 7021-8 ####[facility]ITALNCLI [id number] [place] [address] [place] Platelet mean volume (Bld) [Entitic vol] 9.7 fL Normal 9.0-12.7 [facility] Comment on above: Order Comment: Speci men Type: BLOOD SPECIMENOrdering Facility: [facility] Address: [address] [place] [address] Performed By: #### 5 7021-8 ####[facility] [id number] [place] [address] [place] Platelets (Bld) [#/Vol] 250 10*3/uL Normal 150-400 [facility] Comment on above: Order Comment: Speci men Type: BLOOD SPECIMENOrdering Facility: [facility] Address: [address] [place] [address] Performed By: #### 5 7021-8 ####[facility] [id number] [place] [address] [place] [place] RBC (Bld) [#/Vol] 2.47 10*6/uL Low 4.20-6.00 [facility] Comment on above: Order Comment: Speci men Type: BLOOD SPECIMENOrdering Facility: [facility] Address: [address] [place] [address] Performed By: #### 5 7021-8 ####[facility]OSPITALNCLIA [id number] [place] [address] [place] WBC (Bld) [#/Vol] 6.87 10*3/uL Normal 3.70-11.00 [facility] Comment on above: Order Comment: Speci men Type: BLOOD SPECIMENOrdering Facility: [facility] Address: [address] [place], [place] [address] [address] Performed By: #### 5 7021-8 ####[facility] CLAU ESPINALBAYARDBANG [id number] [place] [address] [place] CEA SerPl-mCncon 11-23-2024 Carcinoembryonic Ag [Mass/Vol] 47.0 ng/mL High <=2.9 [facility] Comment on above: Order Comment: Speci men Type: BLOOD SPECIMENOrdering Facility: [facility] Address: [address] [place] [address] Result Comment: Carc inoembryonic antigen test is used as an aid in monitoring response to treatment or recurrence in patients with established colorectal, breast, lung, prostatic, pancreatic, and ovarian carcinomas. Clinical correlation is required.The Carcinoembryonic antigen test was performed using the [employer] Unicel DXI paramagnetic particle chemiluminescent immunoassay method. Results obtained with different assay methods or kits cannot be used interchangeably. Performed By: #### 2 039-6 ####[facility] LABCLIA [id number] [place] [address] [place] CNPNon 11-23-2024 CNPN Normal [facility] Comprehensive metabolic 2000 panelOrdered By: Mady Cabello on 11-23-2024 Albumin [Mass/Vol] 3.1 g/dL Low 3.9 - 4.9 g/dL [facility] ALP [Catalytic activity/Vol] 77 U/L 38 - 113 U/L [facility] ALT [Catalytic activity/Vol] 43 U/L 10 - 54 U/L [facility] Anion gap [Moles/Vol] 10 mmol/L 8 - 15 mmol/L [facility] AST [Catalytic activity/Vol] 46 U/L High 14 - 40 U/L [facility] Bilirubin [Mass/Vol] 0.9 mg/dL 0.2 - 1 .3 mg/dL [facility] Calcium [Mass/Vol] 8.8 mg/dL 8.5 - 10. 2 mg/dL [facility] Chloride [Moles/Vol] 100 mmol/L 98 - 10 7 mmol/L [facility] CO2 [Moles/Vol] 23 mmol/L 22 - 30 mmol/L [facility] Creatinine [Mass/Vol] 0.95 mg/dL 0.73 - 1.22 mg/dL [facility] GFR/1.73 sq M.predicted among non-blacks MDRD (S/P/Bld) [Vol rate/Area] 82 mL/min/{1.73_m2} - PINF [facility] Comment on above: Estimated Glomerular Filtration Rate (eGFR) is calculated using the 2020 CKD-EPI creatinine equation. This equation utilizes serum creatinine, sex, and age as parameters. The creatinine assay has traceable calibration to isotope dilution-mass spectrometry. Refer to KDIGO guidelines for clinical interpretation. In patients with unstable renal function, e.g. those with acute kidney injury, the eGFR may not accurately reflect actual GFR. Glucose [Mass/Vol] 119 mg/dL High 74 - 99 mg/dL [facility] Comment on above: The [place] Di[employer] [place] Association (ADA) provides guidance for cutoff values for fasting glucose and random glucose. The ADA defines fasting as no caloric intake for at least 8 hours. Fasting plasma glucose results between 100 to 125 mg/dL indicate increased risk for diabetes (prediabetes). Fasting plasma glucose results greater than or equal to 126 mg/dL meet the criteria for diagnosis of diabetes. In the absence of unequivocal hyperglycemia, results should be confirmed by repeat testing. In a patient with classic symptoms of hyperglycemia or hyperglycemic crisis, random plasma glucose results greater than or equal to 200 mg/dL meet the criteria for diagnosis of diabetes. Reference: Standards of Medical Care in Diabetes 2016, [place] [employer]. Diabetes Care. 2016.39(Suppl 1). Interpretation and review of laboratory results Abnormal [facility] Potassium [Moles/Vol] 4.3 mmol/L 3.7 - 5.1 mmol/L [facility] Protein [Mass/Vol] 7.6 g/dL 6.3 - 8.0 g/dL [facility] Sodium [Moles/Vol] 133 mmol/L Low 136 - 144 mmol/L [facility] Urea nitrogen [Mass/Vol] 19 mg/dL 9 - 24 mg/dL [facility] Comprehensive metabolic 2000 panelon 11-23-2024 Albumin [Mass/Vol] 3.1 g/dL Low 3.9-4.9 [facility] Comment on above: Order Comment: Speci men Type: BLOOD SPECIMENOrdering Facility: [facility] Address: [address] [place] [address] Performed By: #### 2 4323-8, ####[facility] GARDENWNCLIA [id number] [place] [address] [place] ALP [Catalytic activity/Vol] 77 U/L Normal 38-113 [facility] Comment on above: Order Comment: Speci men Type: BLOOD SPECIMENOrdering Facility: [facility] Address: [address] [place] [address] Performed By: #### 2 4323-8, ####[facility] GARDENWNCLIA [id number] [place] [address] [place] ALT [Catalytic activity/Vol] 43 U/L Normal 10-54 [facility] Comment on above: Order Comment: Speci men Type: BLOOD SPECIMENOrdering Facility: [facility] Address: [address] [place] [address] Performed By: #### 2 4323-8, ####[facility] HOSPITALNCLIA [id number] [place] [address] [place] Anion gap [Moles/Vol] 10 mmol/L Normal 8-15 [facility] Comment on above: Order Comment: Speci men Type: BLOOD SPECIMENOrdering Facility: [facility] Address: [address] [place] [address] Performed By: #### 2 4323-8, ####[facility]OSPITALNCLIA [id number] [place] [address] [place] AST [Catalytic activity/Vol] 46 U/L High 14-40 [facility] Comment on above: Order Comment: Speci men Type: BLOOD SPECIMENOrdering Facility: [facility] Address: [address] [id number] Performed By: #### 2 4323-8, 60252-3 ####[facility] TEDDYTRICIAA [id number] [place] [address] [place] Bilirubin [Mass/Vol] 0.9 mg/dL Normal 0.2-1.3 [facility] Comment on above: Order Comment: Speci men Type: BLOOD SPECIMENOrdering Facility: [facility] Address: [address] [place] [address] Performed By: #### 2 4323-8, ####[facility] TEDDYGANESH [id number] [place] [address] [place] Calcium [Mass/Vol] 8.8 mg/dL Normal 8.5-10.2 [facility] Comment on above: Order Comment: Speci men Type: BLOOD SPECIMENOrdering Facility: [facility] Address: [address] [place] [address] Performed By: #### 2 4323-8, ####[facility] HOSPITALBANG [id number] [place] [address] [place] Chloride [Moles/Vol] 100 mmol/L Normal 98-107 [facility] Comment on above: Order Comment: Speci men Type: BLOOD SPECIMENOrdering Facility: [facility] Address: [address] [place] [address] Performed By: #### 2 4323-8, ####[facility] HOSPITALGIANNALIA [id number] [place] [address] [place] CO2 [Moles/Vol] 23 mmol/L Normal 22-30 [facility] Comment on above: Order Comment: Speci men Type: BLOOD SPECIMENOrdering Facility: [facility] Address: [address] [place] [address] Performed By: #### 2 4323-8, ####[facility] HOSPITALNCLIA [id number] [place] [address] [place] Creatinine [Mass/Vol] 0.95 mg/dL Normal 0.73-1.22 [facility] Comment on above: Order Comment: Willam robles Type: BLOOD SPECIMENOrdering Facility: [facility] Address: [address] [place] [address] Performed By: #### 2 4323-8, ####[facility] [id number] [place] [address] [place] Creatinine and Glomerular filtration rate.predicted panel (S/P/Bld) 82 mL/min/1.73m??? Normal >=60 [facility] Comment on above: Order Comment: Willam robles Type: BLOOD SPECIMENOrdering Facility: [facility] Address: [address] [place] [address] Result Comment: Rod mated Glomerular Filtration Rate (eGFR) is calculated using the 2020 CKD-EPI creatinine equation. This equation utilizes serum creatinine, sex, and age as parameters. The creatinine assay has traceable calibration to isotope dilution-mass spectrometry. Refer to KDIGO guidelines for clinical interpretation. In patients with unstable renal function, e.g. those with acute kidney injury, the eGFR may not accurately reflect actual GFR. Performed By: #### 2 4323-8, ####[facility] [id number] [place] [address] [place] Glucose [Mass/Vol] 119 mg/dL High 74-99 [facility] Comment on above: Order Comment: Willam robles Type: BLOOD SPECIMENOrdering Facility: [facility] Address: [address] [id number] Result Comment: The [place] Diabetes Association (ADA) provides guidance for cutoff values for fasting glucose and random glucose. The ADA defines fasting as no caloric intake for at least 8 hours. Fasting plasma glucose results between 100 to 125 mg/dL indicate increased risk for diabetes (prediabetes).Fasting plasma glucose results greater than or equal to 126 mg/dL meet the criteria for diagnosis of diabetes. In the absence of unequivocal hyperglycemia, results should be confirmed by repeat testing. In a patient with classic symptoms of hyperglycemia or hyperglycemic crisis, random plasma glucose results greater than or equal to 200 mg/dL meet the criteria for diagnosis of diabetes.Reference: Standards of Medical Care in Diabetes 2016, [place] [employer]. Diabetes Care. 2016.39(Suppl 1). Performed By: #### 2 4323-8, ####[facility] CLAU MILLTOWNCLIA [id number] [place] [address] [place] Potassium [Moles/Vol] 4.3 mmol/L Normal 3.7-5.1 [facility] Comment on above: Order Comment: Speci men Type: BLOOD SPECIMENOrdering Facility: [facility] Address: [address] [place] [address] Performed By: #### 2 4328, ####[facility] GARDENWGIANNALIMckenna [id number] [place] [address] [place] Protein [Mass/Vol] 7.6 g/dL Normal 6.3-8.0 [facility] Comment on above: Order Comment: Patti men Type: BLOOD SPECIMENOrdering Facility: [facility] Address: [address] [place] [address] Performed By: #### 2 432-8, ####[facility] HOSPITALJEFFERYWNCLIA [id number] [place] [address] [place] Sodium [Moles/Vol] 133 mmol/L Low 136-144 [facility] Comment on above: Order Comment: Speci men Type: BLOOD SPECIMENOrdering Facility: [facility] Address: [address] [place] [address] Performed By: #### 2 4323-8, ####[facility] MILLWGIANNALIA [id number] [place] [address] [place] Urea nitrogen [Mass/Vol] 19 mg/dL Normal 9-24 [facility] Comment on above: Order Comment: Speci men Type: BLOOD SPECIMENOrdering Facility: [facility] Address: [address] [place] [address] Performed By: #### 2 4323-8, 50832-1 ####[facility] [id number] [place] [address] [place] FERRITINon 11-23-2024 Ferritin [Mass/Vol] 767 ng/mL High 30.3 - 5 65.7 ng/mL [facility] Ferritin SerPl-mCncon 2024 Ferritin [Mass/Vol] 767.0 ng/mL High 30.3-565.7 [facility] Comment on above: Order Comment: Speci men Type: BLOOD SPECIMENOrdering Facility: [facility] Address: [address] [place] [address] Performed By: #### 5 0190-8, 2275-4 ####[facility] LABCLIA [id number] [place] [address] [place] Ferritin [Mass/Vol]on 2024 Interpretation and review of laboratory results Abnormal [facility] Iron and Iron binding capaci ty panelon 11-23-2024 Interpretation and review of laboratory results Abnormal [facility] Iron [Mass/Vol] 21 ug/dL Low 41 - 186 ug/dL [facility] Iron binding capacity [Mass/Vol] 192 ug/dL Low 232 - 386 ug/dL [facility] Iron/TIBC [Molar ratio] 10.9 % Low 15.0 - 57.0 % [facility] Iron [Mass/Vol] 21 ug/dL Low 41-186 [facility] Comment on above: Order Comment: Speci men Type: BLOOD SPECIMENOrdering Facility: [facility] Address: [address] [place] [address] Performed By: #### 5 0190-8, 6-4 ####[facility] LABCLIA [id number] [place] [id number] [place] Iron binding capacity [Mass/Vol] 192 ug/dL Low 232-386 [facility] Comment on above: Order Comment: Speci men Type: BLOOD SPECIMENOrdering Facility: [facility] Address: [address] [place] [address] Performed By: #### 5 0190-8, 2276-4 ####[facility] LABCLIA [id number] [place] [address] [place] Iron/TIBC [Molar ratio] 10.9 % Low 15.0-57.0 [facility] Comment on above: Order Comment: Speci men Type: BLOOD SPECIMENOrdering Facility: [facility] Address: [address] [place] [address] Performed By: #### 5 0190-8, 2276-4 ####[facility] LABCLIA [id number] [place] [address] [place] MAGNESIUMon 11-23-2024 Magnesium [Mass/Vol] 1.8 mg/dL 1.7 - 2 .3 mg/dL [facility] Magnesium SerPl-mCncon 11-23 Magnesium [Mass/Vol] 1.8 mg/dL Normal 1.7-2.3 [facility] Comment on above: Order Comment: Speci men Type: BLOOD SPECIMENOrdering Facility: [facility] Address: [address] [place] [address] Performed By: #### 2 4323-8, 62942-5 ####[facility] CLAU MILLTOWNCLIA [id number] [place] [address] [place] Magnesium [Mass/Vol]on 11-23 Interpretation and review of laboratory results Normal [facility] No Panel InformationOrdered By: Mady Cabello on 11-23-2024 [facility] Type AND Screenon 11-23-2024 ABO and Rh group Nom (Bld) Blood group O Rh(D) positive Normal [facility] Comment on above: Order Comment: N 11/24/2024 @0745 N Y Mckenna Performed By: #### B CORNELIA #### [facility] [address] [place], [address] CNPNon 11-14-2024 CNPN Normal [facility] CBC W Auto Differential pane l (Bld)on 11-09-2024 Basophils (Bld) [#/Vol] 0.03 10*3/uL [facility] Basophils/100 WBC (Bld) 0.4 % [facility] Differential cell count method Nom (Bld) Auto [facility] Eosinophils (Bld) [#/Vol] 0.06 10*3/uL [facility] Eosinophils/100 WBC (Bld) 0.9 % [facility] Erythrocyte distribution width (RBC) [Ratio] 23.5 % High 11.5 - 15.0 % [facility] Hematocrit (Bld) [Volume fraction] 25.1 % Low 39.0 - 51.0 % [facility] Hemoglobin (Bld) [Mass/Vol] 7.7 g/dL Low 13.0 - 17.0 g/dL [facility] Immature granulocytes (Bld) [#/Vol] 0.22 10*3/uL High [facility] Immature granulocytes/100 WBC (Bld) 3.3 % [facility] Interpretation and review of laboratory results Abnormal [facility] Lymphocytes (Bld) [#/Vol] 0.82 10*3/uL Low [facility] Lymphocytes/100 WBC (Bld) 12.2 % [facility] MCH (RBC) [Entitic mass] 28.5 pg 26.0 - 34.0 pg [facility] MCHC (RBC) [Mass/Vol] 30.7 g/dL 30.5 - 36.0 g/dL [facility] MCV (RBC) [Entitic vol] 93 fL 80.0 - 100.0 fL [facility] Monocytes (Bld) [#/Vol] 0.79 10*3/uL [facility] Monocytes/100 WBC (Bld) 11.7 % [facility] Neutrophils (Bld) [#/Vol] 4.81 10*3/uL [facility] Neutrophils/100 WBC (Bld) 71.5 % [facility] Nucleated RBC (Bld) [#/Vol] 0.04 10*3/uL High NINF [facility] Nucleated RBC/100 WBC (Bld) [Ratio] 0.6 % /100 WBC [facility] Platelet mean volume (Bld) [Entitic vol] 9 fL 9.0 - 12.7 fL [facility] Platelets (Bld) [#/Vol] 160 10*3/uL [facility] RBC (Bld) [#/Vol] 2.7 10*6/uL Low 4.20 - 6.0 0 m/uL [facility] WBC (Bld) [#/Vol] 6.73 10*3/uL [facility] Basophils (Bld) [#/Vol] 0.03 10*3/uL Normal <0.11 [facility] Comment on above: Order Comment: Speci men Type: BLOOD SPECIMENOrdering Facility: [facility] Address: [address] [place] [address] Performed By: #### 5 7021-8 ####[facility] H[facility]ITALA [id number] [place] [address] [place] Basophils/100 WBC (Bld) 0.4 % Normal [facility] Comment on above: Order Comment: Speci men Type: BLOOD SPECIMENOrdering Facility: [facility] Address: [address] [place] [address] Performed By: #### 5 7021-8 ####[facility] [id number] [place] [address] [place] Differential cell count method Nom (Bld) Auto Normal [facility] Comment on above: Order Comment: Speci men Type: BLOOD SPECIMENOrdering Facility: [facility] Address: [address] [place] [address] Performed By: #### 5 7021-8 ####[facility] NORTHLIA [id number] [place] [address] [place] Eosinophils (Bld) [#/Vol] 0.06 10*3/uL Normal <0.46 [facility] Comment on above: Order Comment: Speci men Type: BLOOD SPECIMENOrdering Facility: [facility] Address: [address] [place] [address] Performed By: #### 5 7021-8 ####[facility] TEDDYNiraliNCCARLO [id number] [place] [address] [place] Eosinophils/100 WBC (Bld) 0.9 % Normal [facility] Comment on above: Order Comment: Speci men Type: BLOOD SPECIMENOrdering Facility: [facility] Address: [address] [place] [address] Performed By: #### 5 7021-8 ####[facility] HOSPITALNCLI [id number] [place] [address] [place] Erythrocyte distribution width (RBC) [Ratio] 23.5 % High 11.5-15.0 [facility] Comment on above: Order Comment: Speci men Type: BLOOD SPECIMENOrdering Facility: [facility] Address: [address] [place] [address] Performed By: #### 5 7021-8 ####[facility] HOSPITALNCA [id number] [place] [address] [place] Hematocrit (Bld) [Volume fraction] 25.1 % Low 39.0-51.0 [facility] Comment on above: Order Comment: Speci men Type: BLOOD SPECIMENOrdering Facility: [facility] Address: [address] [place], [place] [address] Performed By: #### 5 7021-8 ####[facility] HOSPITALNCLIA [id number] [place] [address] [place] Hemoglobin (Bld) [Mass/Vol] 7.7 g/dL Low 13.0-17.0 [facility] Comment on above: Order Comment: Speci men Type: BLOOD SPECIMENOrdering Facility: [facility] Address: [address] [place] [address] Performed By: #### 5 7021-8 ####[facility] MILLWNCLIA [id number] [place] [address] [place] Immature granulocytes (Bld) [#/Vol] 0.22 10*3/uL High <0.10 [facility] Comment on above: Order Comment: Speci men Type: BLOOD SPECIMENOrdering Facility: [facility] Address: [address] [place] [address] Performed By: #### 5 7021-8 ####[facility] NORTHLIA [id number] [place] [address] [place] Immature granulocytes/100 WBC (Bld) 3.3 % Normal [facility] Comment on above: Order Comment: Speci men Type: BLOOD SPECIMENOrdering Facility: [facility] Address: [address] [place] [address] Performed By: #### 5 7021-8 ####[facility] NORTHLIA [id number] [place] [address] [place] Lymphocytes (Bld) [#/Vol] 0.82 10*3/uL Low 1.00-4.00 [facility] Comment on above: Order Comment: Speci men Type: BLOOD SPECIMENOrdering Facility: [facility] Address: [address] [place] [address] Performed By: #### 5 7021-8 ####[facility]OSPITALNCLIA [id number] [place] [address] [place] Lymphocytes/100 WBC (Bld) 12.2 % Normal [facility] Comment on above: Order Comment: Speci men Type: BLOOD SPECIMENOrdering Facility: [facility] Address: [address] [place] [address] Performed By: #### 5 7021-8 ####[facility] HOSPITALNCLIA [id number] [place] [address] [place] MCH (RBC) [Entitic mass] 28.5 pg Normal 26.0-34.0 [facility] Comment on above: Order Comment: Speci men Type: BLOOD SPECIMENOrdering Facility: [facility] Address: [address] [place] [address] Performed By: #### 5 7021-8 ####[facility] HOSPITALBANG [id number] [place] [address] [place] MCHC (RBC) [Mass/Vol] 30.7 g/dL Normal 30.5-36.0 [facility] Comment on above: Order Comment: Speci men Type: BLOOD SPECIMENOrdering Facility: [facility] Address: [address] [place] [address] Performed By: #### 5 7021-8 ####[facility] HOSPITALNCMckenna [id number] [place] [address] [place] MCV (RBC) [Entitic vol] 93.0 fL Normal 80.0-100.0 [facility] Comment on above: Order Comment: Speci men Type: BLOOD SPECIMENOrdering Facility: [facility] Address: [address] [place] [address] Performed By: #### 5 7021-8 ####[facility] HOSPITALGIANNAMckenna [id number] [place] [address] [place] Monocytes (Bld) [#/Vol] 0.79 10*3/uL Normal <0.87 [facility] Comment on above: Order Comment: Speci men Type: BLOOD SPECIMENOrdering Facility: [facility] Address: [address] [place] [address] Performed By: #### 5 7021-8 ####[facility] HOSPITALNCLIA [id number] [place] [address] [place] Monocytes/100 WBC (Bld) 11.7 % Normal [facility] Comment on above: Order Comment: Speci men Type: BLOOD SPECIMENOrdering Facility: [facility] Address: [address] [place] [address] Performed By: #### 5 7021-8 ####[facility] TEDDYNiraliNCCARLO [id number] [place] [address] [place] Neutrophils (Bld) [#/Vol] 4.81 10*3/uL Normal 1.45-7.50 [facility] Comment on above: Order Comment: Speci men Type: BLOOD SPECIMENOrdering Facility: [facility] Address: [address] [place] [address] Performed By: #### 5 7021-8 ####[facility] HOSPITALNCBECKYA [id number] [place] [address] [place] Neutrophils/100 WBC (Bld) 71.5 % Normal [facility] Comment on above: Order Comment: Speci men Type: BLOOD SPECIMENOrdering Facility: [facility] Address: [address] [place] [address] Performed By: #### 5 7021-8 ####[facility] [id number] [place] [address] [place] Nucleated RBC (Bld) [#/Vol] 0.04 10*3/uL High <0.01 [facility] Comment on above: Order Comment: Speci men Type: BLOOD SPECIMENOrdering Facility: [facility] Address: [address] [place] [address] Performed By: #### 5 7021-8 ####[facility]ITALNCLIA [id number] [place] [address] [place] Nucleated RBC/100 WBC (Bld) [Ratio] 0.6 /100 WBC Normal [facility] Comment on above: Order Comment: Speci men Type: BLOOD SPECIMENOrdering Facility: [facility] Address: [address] [place] [address] Performed By: #### 5 7021-8 ####[facility] MILLJEFFERYWNCLIA [id number] [place] [address] [place] Platelet mean volume (Bld) [Entitic vol] 9.0 fL Normal 9.0-12.7 [facility] Comment on above: Order Comment: Speci men Type: BLOOD SPECIMENOrdering Facility: [facility] Address: [address] [place], [place] [address] Performed By: #### 5 7021-8 ####[facility] TEDDYWGIANNALIA [id number] [place] [address] [place] Platelets (Bld) [#/Vol] 160 10*3/uL Normal 150-400 [facility] Comment on above: Order Comment: Speci men Type: BLOOD SPECIMENOrdering Facility: [facility] Address: [address] [place], [place] [address] Performed By: #### 5 7021-8 ####[facility] TEDDYWGIANNALIA [id number] [place] [address] [place] RBC (Bld) [#/Vol] 2.70 10*6/uL Low 4.20-6.00 [facility] Comment on above: Order Comment: Speci men Type: BLOOD SPECIMENOrdering Facility: [facility] Address: [address] [place] [address] Performed By: #### 5 7021-8 ####[facility] XIMENAWNCLIA [id number] [place] [address] [place] WBC (Bld) [#/Vol] 6.73 10*3/uL Normal 3.70-11.00 [facility] Comment on above: Order Comment: Speci men Type: BLOOD SPECIMENOrdering Facility: [facility] Address: [address] [place], [place] [address] Performed By: #### 5 7021-8 ####[facility] TEDDYBAYARDFALGUNIA [id number] [place] [address] [place] CEA SerPl-mCncon 11-09-2024 Carcinoembryonic Ag [Mass/Vol] 55.1 ng/mL High <=2.9 [facility] Comment on above: Order Comment: Speci men Type: BLOOD SPECIMENOrdering Facility: [facility] Address: [address] [place] [address] Result Comment: Carc inoembryonic antigen test is used as an aid in monitoring response to treatment or recurrence in patients with established colorectal, breast, lung, prostatic, pancreatic, and ovarian carcinomas. Clinical correlation is required.The Carcinoembryonic antigen test was performed using the [employer] DXI paramagnetic particle chemiluminescent immunoassay method. Results obtained with different assay methods or kits cannot be used interchangeably. Performed By: #### 2 039-6 ####[facility] LABCLIA [id number] [place] [address] [place] CNOVSPon 11-09-2024 CNOVSP Normal [facility] CNPNon 11-09-2024 CNPN Normal [facility] Comprehensive metabolic 2000 panelon 11-09-2024 Albumin [Mass/Vol] 3.4 g/dL Low 3.9 - 4.9 g/dL [facility] ALP [Catalytic activity/Vol] 117 U/L High 38 - 113 U/L [facility] ALT With P-5'-P [Catalytic activity/Vol] 9 U/L Low 10 - 54 U/L [facility] Anion gap [Moles/Vol] 12 mmol/L 8 - 15 mmol/L [facility] AST With P-5'-P [Catalytic activity/Vol] 22 U/L 14 - 40 U/L [facility] Bilirubin [Mass/Vol] 0.6 mg/dL 0.2 - 1 .3 mg/dL [facility] Calcium [Mass/Vol] 8.8 mg/dL 8.5 - 10. 2 mg/dL [facility] Chloride [Moles/Vol] 100 mmol/L 98 - 10 7 mmol/L [facility] CO2 [Moles/Vol] 25 mmol/L 22 - 30 mmol/L [facility] Creatinine [Mass/Vol] 0.92 mg/dL 0.73 - 1.22 mg/dL [facility] GFR/1.73 sq M.predicted among non-blacks MDRD (S/P/Bld) [Vol rate/Area] 86 mL/min/{1.73_m2} - PINF [facility] Comment on above: Estimated Glomerular Filtration Rate (eGFR) is calculated using the 2020 CKD-EPI creatinine equation. This equation utilizes serum creatinine, sex, and age as parameters. The creatinine assay has traceable calibration to isotope dilution-mass spectrometry. Refer to KDIGO guidelines for clinical interpretation. In patients with unstable renal function, e.g. those with acute kidney injury, the eGFR may not accurately reflect actual GFR. Glucose [Mass/Vol] 181 mg/dL High 74 - 99 mg/dL [facility] Comment on above: The [place] Diab[employer] [place] Association (ADA) provides guidance for cutoff values for fasting glucose and random glucose. The ADA defines fasting as no caloric intake for at least 8 hours. Fasting plasma glucose results between 100 to 125 mg/dL indicate increased risk for diabetes (prediabetes). Fasting plasma glucose results greater than or equal to 126 mg/dL meet the criteria for diagnosis of diabetes. In the absence of unequivocal hyperglycemia, results should be confirmed by repeat testing. In a patient with classic symptoms of hyperglycemia or hyperglycemic crisis, random plasma glucose results greater than or equal to 200 mg/dL meet the criteria for diagnosis of diabetes. Reference: Standards of Medical Care in Diabetes 2016, [place] [employer] Association. Diabetes Care. 2016.39(Suppl 1). Interpretation and review of laboratory results Abnormal [facility] Potassium [Moles/Vol] 4 mmol/L 3.7 - 5.1 mmol/L [facility] Protein [Mass/Vol] 7.6 g/dL 6.3 - 8.0 g/dL [facility] Sodium [Moles/Vol] 137 mmol/L 136 - 144 mmol/L [facility] Urea nitrogen [Mass/Vol] 14 mg/dL 9 - 24 mg/dL [facility] Albumin [Mass/Vol] 3.4 g/dL Low 3.9-4.9 [facility] Comment on above: Order Comment: Speci men Type: BLOOD SPECIMENOrdering Facility: [facility] Address: [address] [place] [address] Performed By: #### 1 9123-9, 02474-8 ####[facility] [place] LABCLIA [id number] [place] [address] [place] ALP [Catalytic activity/Vol] 117 U/L High 38-113 [facility] Comment on above: Order Comment: Speci men Type: BLOOD SPECIMENOrdering Facility: [facility] Address: [address] [place] [address] Performed By: #### 1 9123-9, 14937-2 ####[facility] [place] LABCLIA [id number] [place] [address] [place] ALT With P-5'-P [Catalytic activity/Vol] 9 U/L Low 10-54 [facility] Comment on above: Order Comment: Speci men Type: BLOOD SPECIMENOrdering Facility: [facility] Address: [address] [place] [address] Performed By: #### 1 9123-9, 73465-6 ####[facility] [place] LABCLIA [id number] [place] [address] [place] Anion gap [Moles/Vol] 12 mmol/L Normal 8-15 [facility] Comment on above: Order Comment: Speci men Type: BLOOD SPECIMENOrdering Facility: [facility] Address: [address] [place] [address] Performed By: #### 1 9123-9, 89603-3 ####[facility] [place] LABCLIA [id number] [place] [address] [place] AST With P-5'-P [Catalytic activity/Vol] 22 U/L Normal 14-40 [facility] Comment on above: Order Comment: Speci men Type: BLOOD SPECIMENOrdering Facility: [facility] Address: [address] [place] [address] Performed By: #### 1 9123-9, 98633-0 ####[facility] [place] LABCLIA [id number] [place] [address] [place] Bilirubin [Mass/Vol] 0.6 mg/dL Normal 0.2-1.3 [facility] Comment on above: Order Comment: Speci men Type: BLOOD SPECIMENOrdering Facility: [facility] Address: [address] [place] [address] Performed By: #### 1 9123-9, 22909-1 ####[facility] [place] LABCLIA [id number] [place] [address] [place] Calcium [Mass/Vol] 8.8 mg/dL Normal 8.5-10.2 [facility] Comment on above: Order Comment: Speci men Type: BLOOD SPECIMENOrdering Facility: [facility] Address: [address] [place] [address] Performed By: #### 1 9123-9, 08177-4 ####[facility] [place] LABCLIA [id number] [place] [address] [place] Chloride [Moles/Vol] 100 mmol/L Normal 98-107 [facility] Comment on above: Order Comment: Speci men Type: BLOOD SPECIMENOrdering Facility: [facility] Address: [address] [place] [address] Performed By: #### 1 9123-9, 33519-6 ####[facility] [place] LABCLIA [id number] [place] [address] [place] CO2 [Moles/Vol] 25 mmol/L Normal 22-30 [facility] Comment on above: Order Comment: Speci men Type: BLOOD SPECIMENOrdering Facility: [facility] Address: [address] [place] [address] Performed By: #### 1 9123-9, 61721-0 ####[facility] [place] LABCLIA [id number] [place] [address] [place] Creatinine [Mass/Vol] 0.92 mg/dL Normal 0.73-1.22 [facility] Comment on above: Order Comment: Speci men Type: BLOOD SPECIMENOrdering Facility: [facility] Address: [address] [place] [address] Performed By: #### 1 9123-9, 02879-5 ####[facility] [employer] LABCLIA [id number] [place] [id number] [facility] Creatinine and Glomerular filtration rate.predicted panel (S/P/Bld) 86 mL/min/1.73m??? Normal >=60 [facility] Comment on above: Order Comment: Willam robles Type: BLOOD SPECIMENOrdering Facility: [facility] Address: [address] [place] [address] Result Comment: Rod mated Glomerular Filtration Rate (eGFR) is calculated using the 2020 CKD-EPI creatinine equation. This equation utilizes serum creatinine, sex, and age as parameters. The creatinine assay has traceable calibration to isotope dilution-mass spectrometry. Refer to KDIGO guidelines for clinical interpretation. In patients with unstable renal function, e.g. those with acute kidney injury, the eGFR may not accurately reflect actual GFR. Performed By: #### 1 9123-9, 72135-7 ####[facility] [employer] LABCLIA [id number] [place] [id number] [place] Glucose [Mass/Vol] 181 mg/dL High 74-99 [facility] Comment on above: Order Comment: Willam robles Type: BLOOD SPECIMENOrdering Facility: [facility] Address: [address] [place] [address] Result Comment: The [place] Diabetes Association (ADA) provides guidance for cutoff values for fasting glucose and random glucose. The ADA defines fasting as no caloric intake for at least 8 hours. Fasting plasma glucose results between 100 to 125 mg/dL indicate increased risk for diabetes (prediabetes).Fasting plasma glucose results greater than or equal to 126 mg/dL meet the criteria for diagnosis of diabetes. In the absence of unequivocal hyperglycemia, results should be confirmed by repeat testing. In a patient with classic symptoms of hyperglycemia or hyperglycemic crisis, random plasma glucose results greater than or equal to 200 mg/dL meet the criteria for diagnosis of diabetes.Reference: Standards of Medical Care in Diabetes 2016, [place] [employer]. Diabetes Care. 2016.39(Suppl 1). Performed By: #### 1 9123-9, 92090-9 ####[facility] [place] LABCLIA [id number] [place] [address] [place] Potassium [Moles/Vol] 4.0 mmol/L Normal 3.7-5.1 [facility] Comment on above: Order Comment: Speci men Type: BLOOD SPECIMENOrdering Facility: [facility] Address: [address] [place] [address] Performed By: #### 1 9123-9, 90260-9 ####[facility] [place] LABCLIA [id number] [facility] [place] [address] [place] Protein [Mass/Vol] 7.6 g/dL Normal 6.3-8.0 [facility] Comment on above: Order Comment: Speci men Type: BLOOD SPECIMENOrdering Facility: [facility] Address: [address] [place] [address] Performed By: #### 1 9123-9, 38588-0 ####[facility] [place] LABCLIA [id number] [place] [address] [place] Sodium [Moles/Vol] 137 mmol/L Normal 136-144 [facility] Comment on above: Order Comment: Speci men Type: BLOOD SPECIMENOrdering Facility: [facility] Address: [address] [place] [address] Performed By: #### 1 9123-9, 49493-0 ####[facility] [place] LABCLIA [id number] [place] [address] [place] Urea nitrogen [Mass/Vol] 14 mg/dL Normal 9-24 [facility] Comment on above: Order Comment: Speci men Type: BLOOD SPECIMENOrdering Facility: [facility] Address: [address] [place] [address] Performed By: #### 1 9123-9, 92423-2 ####[facility] [place] LABCLIA [id number] [facility] [place] [address] [place] MAGNESIUMon 11-09-2024 Magnesium [Mass/Vol] 1.7 mg/dL 1.7 - 2 .3 mg/dL [facility] Magnesium SerPl-mCncon 11-09 Magnesium [Mass/Vol] 1.7 mg/dL Normal 1.7-2.3 [facility] Comment on above: Order Comment: Speci men Type: BLOOD SPECIMENOrdering Facility: [facility] Address: [address] [id number] Performed By: #### 1 9123-9, 55717-4 ####[facility] [place] LABCLIA [id number] [place] [address] [place] Magnesium [Mass/Vol]on 11-09 Interpretation and review of laboratory results Normal [facility] No Panel Informationon 11-09 [facility] UA DIP, URINE (POC)on 2024 BILIRUBIN UA (POCT) Negative Negative [facility] CLARITY UA (POCT) Clear [facility] COLOR UA (POCT) Yellow [facility] GLUCOSE UA (POCT) Negative Negative mg/dL [facility] Hemoglobin Ql (U) Negative Negative [facility] KETONE UA (POCT) Negative Negative mg/dL [facility] LEUKOCYTES UA (POCT) Negative Negative [facility] NITRITE UA (POCT) Negative Negative [facility] PH UA (POCT) 6 4.5 - 8.0 [facility] Protein Ql (U) Negative Negative mg/dL [facility] SPECIFIC GRAVITY UA (POCT) 1.015 1.005 - 1.030 [facility] UROBILINOGEN UA (POCT) 1 Normal E.U./dL [facility] Location:[facility], [address] , [place], [place], [id number] [place] [address] POINT OF CARE [facility] CT ABD/PEL W IVCONon 025 CT ABD/PEL W IVCON Normal [facility] CT CHEST W IVCONon 5 CT CHEST W IVCON Normal [facility] CBC W Auto Differential pane l (Bld)on 10-26-2024 Basophils (Bld) [#/Vol] NINF [facility] Basophils/100 WBC (Bld) 0.4 % [facility] Differential cell count method Nom (Bld) Auto [facility] Eosinophils (Bld) [#/Vol] 0.1 10*3/uL [facility] Eosinophils/100 WBC (Bld) 2 % [facility] Erythrocyte distribution width (RBC) [Ratio] 22.2 % High 11.5 - 15.0 % [facility] Hematocrit (Bld) [Volume fraction] 28 % Low 39.0 - 51.0 % [facility] Hemoglobin (Bld) [Mass/Vol] 8.2 g/dL Low 13.0 - 17.0 g/dL [facility] Immature granulocytes (Bld) [#/Vol] 0.06 10*3/uL [facility] Immature granulocytes/100 WBC (Bld) 1.2 % [facility] Interpretation and review of laboratory results Abnormal [facility] Lymphocytes (Bld) [#/Vol] 0.79 10*3/uL Low [facility] Lymphocytes/100 WBC (Bld) 15.4 % [facility] MCH (RBC) [Entitic mass] 27.4 pg 26.0 - 34.0 pg [facility] MCHC (RBC) [Mass/Vol] 29.3 g/dL Low 30.5 - 36.0 g/dL [facility] MCV (RBC) [Entitic vol] 93.6 fL 80.0 - 100.0 fL [facility] Monocytes (Bld) [#/Vol] 0.56 10*3/uL [facility] Monocytes/100 WBC (Bld) 10.9 % [facility] Neutrophils (Bld) [#/Vol] 3.59 10*3/uL [facility] Neutrophils/100 WBC (Bld) 70.1 % [facility] Nucleated RBC (Bld) [#/Vol] [facility] Nucleated RBC/100 WBC (Bld) [Ratio] 0 % /100 WBC [facility] Platelet mean volume (Bld) [Entitic vol] 9.6 fL 9.0 - 12.7 fL [facility] Platelets (Bld) [#/Vol] 139 10*3/uL Low [facility] RBC (Bld) [#/Vol] 2.99 10*6/uL Low 4.20 - 6.0 0 m/uL [facility] WBC (Bld) [#/Vol] 5.12 10*3/uL [facility] Basophils (Bld) [#/Vol] 10*3/uL Normal <0.11 [facility] Comment on above: Order Comment: Speci men Type: BLOOD SPECIMENOrdering Facility: [facility] Address: [address] [place] [address] Performed By: #### 5 7021-8 ####[facility] NORTHLIA [id number] [place] [address] [place] Basophils/100 WBC (Bld) 0.4 % Normal [facility] Comment on above: Order Comment: Speci men Type: BLOOD SPECIMENOrdering Facility: [facility] Address: [address] [place] [address] Performed By: #### 5 7021-8 ####[facility] NOR[facility]LIA [id number] [place] [address] [place] Differential cell count method Nom (Bld) Auto Normal [facility] Comment on above: Order Comment: Speci men Type: BLOOD SPECIMENOrdering Facility: [facility] Address: [address] [place] [address] Performed By: #### 5 7021-8 ####[facility] [id number] [place] [address] [place] Eosinophils (Bld) [#/Vol] 0.10 10*3/uL Normal <0.46 [facility] Comment on above: Order Comment: Speci men Type: BLOOD SPECIMENOrdering Facility: [facility] Address: [address] [place] [address] Performed By: #### 5 7021-8 ####[facility] NOR[facility]LIA [id number] [place] [address] [place] Eosinophils/100 WBC (Bld) 2.0 % Normal [facility] Comment on above: Order Comment: Speci men Type: BLOOD SPECIMENOrdering Facility: [facility] Address: [address] [place] [address] Performed By: #### 5 7021-8 ####[facility]ITALNCLIA [id number] [place] [address] [place] Erythrocyte distribution width (RBC) [Ratio] 22.2 % High 11.5-15.0 [facility] Comment on above: Order Comment: Speci men Type: BLOOD SPECIMENOrdering Facility: [facility] Address: [address] [place] [address] Performed By: #### 5 7021-8 ####[facility] [id number] [place] [address] [place] Hematocrit (Bld) [Volume fraction] 28.0 % Low 39.0-51.0 [facility] Comment on above: Order Comment: Speci men Type: BLOOD SPECIMENOrdering Facility: [facility] Address: [address] [place] [address] Performed By: #### 5 7021-8 ####[facility] [id number] [place] [address] [place] Hemoglobin (Bld) [Mass/Vol] 8.2 g/dL Low 13.0-17.0 [facility] Comment on above: Order Comment: Speci men Type: BLOOD SPECIMENOrdering Facility: [facility] Address: [address] [place] [address] Performed By: #### 5 7021-8 ####[facility] [id number] [place] [address] [place] Immature granulocytes (Bld) [#/Vol] 0.06 10*3/uL Normal <0.10 [facility] Comment on above: Order Comment: Speci men Type: BLOOD SPECIMENOrdering Facility: [facility] Address: [address] [place] [address] Performed By: #### 5 7021-8 ####[facility] [id number] [place] [address] [place] Immature granulocytes/100 WBC (Bld) 1.2 % Normal [facility] Comment on above: Order Comment: Speci men Type: BLOOD SPECIMENOrdering Facility: [facility] Address: [address] [place] [address] Performed By: #### 5 7021-8 ####[facility] [id number] [place] [address] [place] Lymphocytes (Bld) [#/Vol] 0.79 10*3/uL Low 1.00-4.00 [facility] Comment on above: Order Comment: Speci men Type: BLOOD SPECIMENOrdering Facility: [facility] Address: [address] [place] [address] Performed By: #### 5 7021-8 ####[facility] [id number] [place] [address] [place] Lymphocytes/100 WBC (Bld) 15.4 % Normal [facility] Comment on above: Order Comment: Speci men Type: BLOOD SPECIMENOrdering Facility: [facility] Address: [address] [place] [address] Performed By: #### 5 7021-8 ####[facility]CLI [id number] [place] [address] [place] MCH (RBC) [Entitic mass] 27.4 pg Normal 26.0-34.0 [facility] Comment on above: Order Comment: Speci men Type: BLOOD SPECIMENOrdering Facility: [facility] Address: [address] [place] [address] Performed By: #### 5 7021-8 ####[facility]ITAL[facility]I [id number] [place] [address] [place] MCHC (RBC) [Mass/Vol] 29.3 g/dL Low 30.5-36.0 [facility] Comment on above: Order Comment: Speci men Type: BLOOD SPECIMENOrdering Facility: [facility] Address: [address] [place] [address] Performed By: #### 5 7021-8 ####[facility] TEDDYNiraliNCCARLO [id number] [place] [address] [place] MCV (RBC) [Entitic vol] 93.6 fL Normal 80.0-100.0 [facility] Comment on above: Order Comment: Speci men Type: BLOOD SPECIMENOrdering Facility: [facility] Address: [address] [place] [address] Performed By: #### 5 7021-8 ####[facility] [id number] [place] [address] [place] Monocytes (Bld) [#/Vol] 0.56 10*3/uL Normal <0.87 [facility] Comment on above: Order Comment: Speci men Type: BLOOD SPECIMENOrdering Facility: [facility] Address: [address] [place] [address] Performed By: #### 5 7021-8 ####[facility]ITALNCLIA [id number] [place] [address] [place] Monocytes/100 WBC (Bld) 10.9 % Normal [facility] Comment on above: Order Comment: Speci men Type: BLOOD SPECIMENOrdering Facility: [facility] Address: [address] [place] [address] Performed By: #### 5 7021-8 ####[facility]ITALNCLIA [id number] [place] [address] [place] Neutrophils (Bld) [#/Vol] 3.59 10*3/uL Normal 1.45-7.50 [facility] Comment on above: Order Comment: Speci men Type: BLOOD SPECIMENOrdering Facility: [facility] Address: [address] [place] [address] Performed By: #### 5 7021-8 ####[facility] GARDENWGIANNALIA [id number] [place] [address] [place] Neutrophils/100 WBC (Bld) 70.1 % Normal [facility] Comment on above: Order Comment: Speci men Type: BLOOD SPECIMENOrdering Facility: [facility] Address: [address] [place] [address] Performed By: #### 5 7021-8 ####[facility] [id number] [place] [address] [place] Nucleated RBC (Bld) [#/Vol] 10*3/uL Normal <0.01 [facility] Comment on above: Order Comment: Speci men Type: BLOOD SPECIMENOrdering Facility: [facility] Address: [address] [place] [address] Performed By: #### 5 7021-8 ####[facility] [id number] [place] [address] [place] Nucleated RBC/100 WBC (Bld) [Ratio] 0.0 /100 WBC Normal [facility] Comment on above: Order Comment: Speci men Type: BLOOD SPECIMENOrdering Facility: [facility] Address: [address] [place] [address] Performed By: #### 5 7021-8 ####[facility] NORTHLIA [id number] [place] [address] [place] Platelet mean volume (Bld) [Entitic vol] 9.6 fL Normal 9.0-12.7 [facility] Comment on above: Order Comment: Speci men Type: BLOOD SPECIMENOrdering Facility: [facility] Address: [address] [place] [address] Performed By: #### 5 7021-8 ####[facility] [id number] [place] [address] [place] Platelets (Bld) [#/Vol] 139 10*3/uL Low 150-400 [facility] Comment on above: Order Comment: Speci men Type: BLOOD SPECIMENOrdering Facility: [facility] Address: [address] [place] [address] Performed By: #### 5 7021-8 ####[facility]PITALNCA [id number] [place] [address] [place] RBC (Bld) [#/Vol] 2.99 10*6/uL Low 4.20-6.00 [facility] Comment on above: Order Comment: Speci men Type: BLOOD SPECIMENOrdering Facility: [facility] Address: [address] [place] [address] Performed By: #### 5 7021-8 ####[facility]ITALNCA [id number] [place] [address] [place] WBC (Bld) [#/Vol] 5.12 10*3/uL Normal 3.70-11.00 [facility] Comment on above: Order Comment: Speci men Type: BLOOD SPECIMENOrdering Facility: [facility] Address: [address] [place] [address] Performed By: #### 5 7021-8 ####[facility]ITALNCLIA [id number] [place] [id number] [place] [facility] 10-26-2024 Carcinoembryonic Ag [Mass/Vol] 45.8 ng/mL High <=2.9 [facility] Comment on above: Order Comment: Speci men Type: BLOOD SPECIMENOrdering Facility: [facility] Address: [address] [place] [address] Result Comment: Carc inoembryonic antigen test is used as an aid in monitoring response to treatment or recurrence in patients with established colorectal, breast, lung, prostatic, pancreatic, and ovarian carcinomas. Clinical correlation is required.The Carcinoembryonic antigen test was performed using the Bryce Tippr Unicel DXI paramagnetic particle chemiluminescent immunoassay method. Results obtained with different assay methods or kits cannot be used interchangeably. Performed By: #### 2 039-6 ####[facility] LABCLIA [id number] [facility] [place] [address] [place] Comprehensive metabolic 2000 panelOrdered By: Cody Hurtado on 10-26-2024 Albumin [Mass/Vol] 3.6 g/dL Low 3.9 - 4.9 g/dL [facility] ALP [Catalytic activity/Vol] 101 U/L 38 - 113 U/L [facility] ALT [Catalytic activity/Vol] 9 U/L Low 10 - 54 U/L [facility] Anion gap [Moles/Vol] 10 mmol/L 8 - 15 mmol/L [facility] AST [Catalytic activity/Vol] 13 U/L Low 14 - 40 U/L [facility] Bilirubin [Mass/Vol] 0.5 mg/dL 0.2 - 1 .3 mg/dL [facility] Calcium [Mass/Vol] 9.3 mg/dL 8.5 - 10. 2 mg/dL [facility] Chloride [Moles/Vol] 102 mmol/L 98 - 10 7 mmol/L [facility] CO2 [Moles/Vol] 27 mmol/L 22 - 30 mmol/L [facility] Creatinine [Mass/Vol] 0.85 mg/dL 0.73 - 1.22 mg/dL [facility] GFR/1.73 sq M.predicted among non-blacks MDRD (S/P/Bld) [Vol rate/Area] 89 mL/min/{1.73_m2} - PINF [facility] Comment on above: Estimated Glomerular Filtration Rate (eGFR) is calculated using the 2020 CKD-EPI creatinine equation. This equation utilizes serum creatinine, sex, and age as parameters. The creatinine assay has traceable calibration to isotope dilution-mass spectrometry. Refer to KDIGO guidelines for clinical interpretation. In patients with unstable renal function, e.g. those with acute kidney injury, the eGFR may not accurately reflect actual GFR. Glucose [Mass/Vol] 166 mg/dL High 74 - 99 mg/dL [facility] Comment on above: The [place] Di[employer] [place] Association (ADA) provides guidance for cutoff values for fasting glucose and random glucose. The ADA defines fasting as no caloric intake for at least 8 hours. Fasting plasma glucose results between 100 to 125 mg/dL indicate increased risk for diabetes (prediabetes). Fasting plasma glucose results greater than or equal to 126 mg/dL meet the criteria for diagnosis of diabetes. In the absence of unequivocal hyperglycemia, results should be confirmed by repeat testing. In a patient with classic symptoms of hyperglycemia or hyperglycemic crisis, random plasma glucose results greater than or equal to 200 mg/dL meet the criteria for diagnosis of diabetes. Reference: Standards of Medical Care in Diabetes 2016, [place] [employer] Association. Diabetes Care. 2016.39(Suppl 1). Interpretation and review of laboratory results Abnormal [facility] Potassium [Moles/Vol] 4 mmol/L 3.7 - 5.1 mmol/L [facility] Protein [Mass/Vol] 7.3 g/dL 6.3 - 8.0 g/dL [facility] Sodium [Moles/Vol] 139 mmol/L 136 - 144 mmol/L [facility] Urea nitrogen [Mass/Vol] 12 mg/dL 9 - 24 mg/dL [facility] Comprehensive metabolic 2000 panelon 10-26-2024 Albumin [Mass/Vol] 3.6 g/dL Low 3.9-4.9 [facility] Comment on above: Order Comment: Speci men Type: BLOOD SPECIMENOrdering Facility: [facility] Address: [address] [place] [address] Performed By: #### 2 4323-8, ####[facility] [id number] [place] [address] [place] ALP [Catalytic activity/Vol] 101 U/L Normal 38-113 [facility] Comment on above: Order Comment: Speci men Type: BLOOD SPECIMENOrdering Facility: [facility] Address: [address] [place] [address] Performed By: #### 2 4323-8, ####[facility] [id number] [place] [address] [place] ALT [Catalytic activity/Vol] 9 U/L Low 10-54 [facility] Comment on above: Order Comment: Speci men Type: BLOOD SPECIMENOrdering Facility: [facility] Address: [address] [place] [address] Performed By: #### 2 4323-8, ####[facility] CLAU ANGEL [id number] [place] [address] [place] Anion gap [Moles/Vol] 10 mmol/L Normal 8-15 [facility] Comment on above: Order Comment: Speci men Type: BLOOD SPECIMENOrdering Facility: [facility] Address: [address] [place] [address] Performed By: #### 2 4323-8, ####[facility]PITALNCCARLO [id number] [place] [address] [place] AST [Catalytic activity/Vol] 13 U/L Low 14-40 [facility] Comment on above: Order Comment: Speci men Type: BLOOD SPECIMENOrdering Facility: [facility] Address: [address] [place] [address] Performed By: #### 2 4323-8, ####[facility]OSPITALNCBECKYA [id number] [place] [address] [place] Bilirubin [Mass/Vol] 0.5 mg/dL Normal 0.2-1.3 [facility] Comment on above: Order Comment: Speci men Type: BLOOD SPECIMENOrdering Facility: [facility] Address: [address] [place] [address] Performed By: #### 2 4323-8, ####[facility]PITALNCLIA [id number] [place] [address] [place] Calcium [Mass/Vol] 9.3 mg/dL Normal 8.5-10.2 [facility] Comment on above: Order Comment: Speci men Type: BLOOD SPECIMENOrdering Facility: [facility] Address: [address] [place], [place] [address] Performed By: #### 2 4323-8, 89046-2 ####[facility]PITALNCLIA [id number] [place] [address] [place] Chloride [Moles/Vol] 102 mmol/L Normal 98-107 [facility] Comment on above: Order Comment: Speci men Type: BLOOD SPECIMENOrdering Facility: [facility] Address: [address] [place] [address] Performed By: #### 2 4323-8, ####[facility]PITALNCLIA [id number] [place] [address] [place] CO2 [Moles/Vol] 27 mmol/L Normal 22-30 [facility] Comment on above: Order Comment: Speci men Type: BLOOD SPECIMENOrdering Facility: [facility] Address: [address] [place] [address] Performed By: #### 2 4323-8, 17836-0 ####[facility]PITALNCLIA [id number] [place] [address] [place] Creatinine [Mass/Vol] 0.85 mg/dL Normal 0.73-1.22 [facility] Comment on above: Order Comment: Speci men Type: BLOOD SPECIMENOrdering Facility: [facility] Address: [address] [place] [address] Performed By: #### 2 4323-8, 41626-1 ####[facility]PITALNCLIA [id number] [place] [address] [place] [facility] Creatinine and Glomerular filtration rate.predicted panel (S/P/Bld) 89 mL/min/1.73m??? Normal >=60 [facility] Comment on above: Order Comment: Speci men Type: BLOOD SPECIMENOrdering Facility: [facility] Address: [address] [place] [address] Result Comment: Rod mated Glomerular Filtration Rate (eGFR) is calculated using the 2020 CKD-EPI creatinine equation. This equation utilizes serum creatinine, sex, and age as parameters. The creatinine assay has traceable calibration to isotope dilution-mass spectrometry. Refer to KDIGO guidelines for clinical interpretation. In patients with unstable renal function, e.g. those with acute kidney injury, the eGFR may not accurately reflect actual GFR. Performed By: #### 2 4323-8, 23015-5 ####[facility] MILLTOWNCLIA [id number] [place] [address] [place] Glucose [Mass/Vol] 166 mg/dL High 74-99 [facility] Comment on above: Order Comment: Wilalm robles Type: BLOOD SPECIMENOrdering Facility: [facility] Address: [address] [place] [address] Result Comment: The [place] Diabetes Association (ADA) provides guidance for cutoff values for fasting glucose and random glucose. The ADA defines fasting as no caloric intake for at least 8 hours. Fasting plasma glucose results between 100 to 125 mg/dL indicate increased risk for diabetes (prediabetes).Fasting plasma glucose results greater than or equal to 126 mg/dL meet the criteria for diagnosis of diabetes. In the absence of unequivocal hyperglycemia, results should be confirmed by repeat testing. In a patient with classic symptoms of hyperglycemia or hyperglycemic crisis, random plasma glucose results greater than or equal to 200 mg/dL meet the criteria for diagnosis of diabetes.Reference: Standards of Medical Care in Diabetes 2016, [place] [employer]. Diabetes Care. 2016.39(Suppl 1). Performed By: #### 2 4323-8, ####[facility] MILLTOWNCLIA [id number] [place] [address] [place] Potassium [Moles/Vol] 4.0 mmol/L Normal 3.7-5.1 [facility] Comment on above: Order Comment: Willam robles Type: BLOOD SPECIMENOrdering Facility: [facility] Address: [address] [place] [address] Performed By: #### 2 4323-8, ####[facility] GARDENWHILIA [id number] [place] [address] [place] Protein [Mass/Vol] 7.3 g/dL Normal 6.3-8.0 [facility] Comment on above: Order Comment: Speci men Type: BLOOD SPECIMENOrdering Facility: [facility] Address: [address] [place] [address] Performed By: #### 2 4323-8, ####[facility] TEDDYBAYARDGIANNALIA [id number] [place] [address] [place] Sodium [Moles/Vol] 139 mmol/L Normal 136-144 [facility] Comment on above: Order Comment: Speci men Type: BLOOD SPECIMENOrdering Facility: [facility] Address: [address] [place] [address] Performed By: #### 2 4323-8, ####[facility] NORTHLIA [id number] [place] [address] [place] Urea nitrogen [Mass/Vol] 12 mg/dL Normal 9-24 [facility] Comment on above: Order Comment: Speci men Type: BLOOD SPECIMENOrdering Facility: [facility] Address: [address] [place] [address] Performed By: #### 2 4323-8, ####[facility] NORTHLIA [id number] [place] [address] [place] MAGNESIUMon 10-26-2024 Magnesium [Mass/Vol] 1.8 mg/dL 1.7 - 2 .3 mg/dL [facility] Magnesium SerPl-mCncon 10-26 Magnesium [Mass/Vol] 1.8 mg/dL Normal 1.7-2.3 [facility] Comment on above: Order Comment: Speci men Type: BLOOD SPECIMENOrdering Facility: [facility] Address: [address] [place] [address] Performed By: #### 2 4323-8, 85637-7 ####[facility] [id number] [place] [address] [place] Magnesium [Mass/Vol]on 10-26 Interpretation and review of laboratory results Normal [facility] No Panel InformationOrdered By: Cody Hurtado on 10-26-2024 [facility] UA DIP, URINE (POC)on 2024 BILIRUBIN UA (POCT) Negative Negative [facility] CLARITY UA (POCT) Clear [facility] COLOR UA (POCT) Yellow [facility] GLUCOSE UA (POCT) Negative Negative mg/dL [facility] Hemoglobin Ql (U) Negative Negative [facility] KETONE UA (POCT) Negative Negative mg/dL [facility] LEUKOCYTES UA (POCT) Negative Negative [facility] NITRITE UA (POCT) Negative Negative [facility] PH UA (POCT) 5.5 4.5 - 8.0 [facility] Protein Ql (U) Negative Negative mg/dL [facility] SPECIFIC GRAVITY UA (POCT) 1.02 1.005 - 1.030 [facility] UROBILINOGEN UA (POCT) 1 Normal E.U./dL [facility] Location:[facility], [address] [place], [place], [address] [place] [address] POINT OF CARE [facility] CBC W Auto Differential pane l (Bld)on 10-12-2024 Basophils (Bld) [#/Vol] NINF [facility] Basophils/100 WBC (Bld) 0.4 % [facility] Differential cell count method Nom (Bld) Auto [facility] Eosinophils (Bld) [#/Vol] 0.09 10*3/uL [facility] Eosinophils/100 WBC (Bld) 1.9 % [facility] Erythrocyte distribution width (RBC) [Ratio] 22.5 % High 11.5 - 15.0 % [facility] Hematocrit (Bld) [Volume fraction] 29.3 % Low 39.0 - 51.0 % [facility] Hemoglobin (Bld) [Mass/Vol] 8.8 g/dL Low 13.0 - 17.0 g/dL [facility] Immature granulocytes (Bld) [#/Vol] 0.06 10*3/uL [facility] Immature granulocytes/100 WBC (Bld) 1.2 % [facility] Interpretation and review of laboratory results Abnormal [facility] Lymphocytes (Bld) [#/Vol] 0.8 10*3/uL Low [facility] Lymphocytes/100 WBC (Bld) 16.6 % [facility] MCH (RBC) [Entitic mass] 28.4 pg 26.0 - 34.0 pg [facility] MCHC (RBC) [Mass/Vol] 30 g/dL Low 30.5 - 36.0 g/dL [facility] MCV (RBC) [Entitic vol] 94.5 fL 80.0 - 100.0 fL [facility] Monocytes (Bld) [#/Vol] 0.5 10*3/uL [facility] Monocytes/100 WBC (Bld) 10.4 % [facility] Neutrophils (Bld) [#/Vol] 3.35 10*3/uL [facility] Neutrophils/100 WBC (Bld) 69.5 % [facility] Nucleated RBC (Bld) [#/Vol] [facility] Nucleated RBC/100 WBC (Bld) [Ratio] 0 % /100 WBC [facility] Platelet mean volume (Bld) [Entitic vol] 9.3 fL 9.0 - 12.7 fL [facility] Platelets (Bld) [#/Vol] 149 10*3/uL Low [facility] RBC (Bld) [#/Vol] 3.1 10*6/uL Low 4.20 - 6.0 0 m/uL [facility] WBC (Bld) [#/Vol] 4.82 10*3/uL [facility] Basophils (Bld) [#/Vol] 10*3/uL Normal <0.11 [facility] Comment on above: Order Comment: Speci men Type: BLOOD SPECIMENOrdering Facility: [facility] Address: [address] [place] [address] Performed By: #### 5 7021-8 ####[facility] CLAU [facility] INDIANACARLO [id number] [place] [address] [place] Basophils/100 WBC (Bld) 0.4 % Normal [facility] Comment on above: Order Comment: Speci men Type: BLOOD SPECIMENOrdering Facility: [facility] Address: [address] [place] [address] Performed By: #### 5 7021-8 ####[facility] TEDDYBAYARDBANG [id number] [place] [address] [place] Differential cell count method Nom (Bld) Auto Normal [facility] Comment on above: Order Comment: Speci men Type: BLOOD SPECIMENOrdering Facility: [facility] Address: [address] [place] [address] Performed By: #### 5 7021-8 ####[facility] [id number] [place] [address] [place] Eosinophils (Bld) [#/Vol] 0.09 10*3/uL Normal <0.46 [facility] Comment on above: Order Comment: Speci men Type: BLOOD SPECIMENOrdering Facility: [facility] Address: [address] [place] [address] Performed By: #### 5 7021-8 ####[facility] [id number] [place] [address] [place] Eosinophils/100 WBC (Bld) 1.9 % Normal [facility] Comment on above: Order Comment: Speci men Type: BLOOD SPECIMENOrdering Facility: [facility] Address: [address] [place] [address] Performed By: #### 5 7021-8 ####[facility] [id number] [place] [address] [place] Erythrocyte distribution width (RBC) [Ratio] 22.5 % High 11.5-15.0 [facility] Comment on above: Order Comment: Speci men Type: BLOOD SPECIMENOrdering Facility: [facility] Address: [address] [place] [address] Performed By: #### 5 7021-8 ####[facility]PITALNCLIA [id number] [place] [address] [place] Hematocrit (Bld) [Volume fraction] 29.3 % Low 39.0-51.0 [facility] Comment on above: Order Comment: Speci men Type: BLOOD SPECIMENOrdering Facility: [facility] Address: [address] [place] [address] Performed By: #### 5 7021-8 ####[facility] [id number] [place] [address] [place] Hemoglobin (Bld) [Mass/Vol] 8.8 g/dL Low 13.0-17.0 [facility] Comment on above: Order Comment: Speci men Type: BLOOD SPECIMENOrdering Facility: [facility] Address: [address] [place] [address] Performed By: #### 5 7021-8 ####[facility] [id number] [place] [address] [place] Immature granulocytes (Bld) [#/Vol] 0.06 10*3/uL Normal <0.10 [facility] Comment on above: Order Comment: Speci men Type: BLOOD SPECIMENOrdering Facility: [facility] Address: [address] [place] [address] Performed By: #### 5 7021-8 ####[facility] [id number] [place] [address] [place] Immature granulocytes/100 WBC (Bld) 1.2 % Normal [facility] Comment on above: Order Comment: Speci men Type: BLOOD SPECIMENOrdering Facility: [facility] Address: [address] [place] [address] Performed By: #### 5 7021-8 ####[facility]PITALNCLIA [id number] [place] [address] [place] Lymphocytes (Bld) [#/Vol] 0.80 10*3/uL Low 1.00-4.00 [facility] Comment on above: Order Comment: Speci men Type: BLOOD SPECIMENOrdering Facility: [facility] Address: [address] [place] [address] Performed By: #### 5 7021-8 ####[facility] [id number] [place] [address] [place] Lymphocytes/100 WBC (Bld) 16.6 % Normal [facility] Comment on above: Order Comment: Speci men Type: BLOOD SPECIMENOrdering Facility: [facility] Address: [address] [place] [address] Performed By: #### 5 7021-8 ####[facility] [id number] [place] [address] [place] MCH (RBC) [Entitic mass] 28.4 pg Normal 26.0-34.0 [facility] Comment on above: Order Comment: Speci men Type: BLOOD SPECIMENOrdering Facility: [facility] Address: [address] [place] [address] Performed By: #### 5 7021-8 ####[facility] [id number] [place] [address] [place] MCHC (RBC) [Mass/Vol] 30.0 g/dL Low 30.5-36.0 [facility] Comment on above: Order Comment: Speci men Type: BLOOD SPECIMENOrdering Facility: [facility] Address: [address] [place] [address] Performed By: #### 5 7021-8 ####[facility] [id number] [place] [address] [place] MCV (RBC) [Entitic vol] 94.5 fL Normal 80.0-100.0 [facility] Comment on above: Order Comment: Speci men Type: BLOOD SPECIMENOrdering Facility: [facility] Address: [address] [place] [address] Performed By: #### 5 7021-8 ####[facility] TEDDYMARIOLAA [id number] [place] [address] [place] Monocytes (Bld) [#/Vol] 0.50 10*3/uL Normal <0.87 [facility] Comment on above: Order Comment: Speci men Type: BLOOD SPECIMENOrdering Facility: [facility] Address: [address] [place] [address] Performed By: #### 5 7021-8 ####[facility] [id number] [place] [address] [place] Monocytes/100 WBC (Bld) 10.4 % Normal [facility] Comment on above: Order Comment: Speci men Type: BLOOD SPECIMENOrdering Facility: [facility] Address: [address] [place] [address] Performed By: #### 5 7021-8 ####[facility] [id number] [place] [address] [place] Neutrophils (Bld) [#/Vol] 3.35 10*3/uL Normal 1.45-7.50 [facility] Comment on above: Order Comment: Speci men Type: BLOOD SPECIMENOrdering Facility: [facility] Address: [address] [place] [address] Performed By: #### 5 7021-8 ####[facility] NORTHLIA [id number] [place] [address] [place] Neutrophils/100 WBC (Bld) 69.5 % Normal [facility] Comment on above: Order Comment: Speci men Type: BLOOD SPECIMENOrdering Facility: [facility] Address: [address] [place] [address] Performed By: #### 5 7021-8 ####[facility] TEDDYWGIANNALIA [id number] [place] [address] [place] Nucleated RBC (Bld) [#/Vol] 10*3/uL Normal <0.01 [facility] Comment on above: Order Comment: Speci men Type: BLOOD SPECIMENOrdering Facility: [facility] Address: [address] [place] [address] Performed By: #### 5 7021-8 ####[facility] [id number] [place] [address] [place] Nucleated RBC/100 WBC (Bld) [Ratio] 0.0 /100 WBC Normal [facility] Comment on above: Order Comment: Speci men Type: BLOOD SPECIMENOrdering Facility: [facility] Address: [address] [place] [address] Performed By: #### 5 7021-8 ####[facility] [id number] [place] [address] [place] Platelet mean volume (Bld) [Entitic vol] 9.3 fL Normal 9.0-12.7 [facility] Comment on above: Order Comment: Speci men Type: BLOOD SPECIMENOrdering Facility: [facility] Address: [address] [place] [address] Performed By: #### 5 7021-8 ####[facility] [id number] [place] [address] [place] Platelets (Bld) [#/Vol] 149 10*3/uL Low 150-400 [facility] Comment on above: Order Comment: Speci men Type: BLOOD SPECIMENOrdering Facility: [facility] Address: [address] [place] [address] Performed By: #### 5 7021-8 ####[facility]ITALNCLI [id number] [place] [address] [place] RBC (Bld) [#/Vol] 3.10 10*6/uL Low 4.20-6.00 [facility] Comment on above: Order Comment: Speci men Type: BLOOD SPECIMENOrdering Facility: [facility] Address: [address] [place] [address] Performed By: #### 5 7021-8 ####[facility] [id number] [place] [address] [place] WBC (Bld) [#/Vol] 4.82 10*3/uL Normal 3.70-11.00 [facility] Comment on above: Order Comment: Speci men Type: BLOOD SPECIMENOrdering Facility: [facility] Address: [address] [place] [address] Performed By: #### 5 7021-8 ####[facility] [id number] [place] [address] [place] CEA SerPl-mCncon 10-12-2024 Carcinoembryonic Ag [Mass/Vol] 31.8 ng/mL High <=2.9 [facility] Comment on above: Order Comment: Speci men Type: BLOOD SPECIMENOrdering Facility: [facility] Address: [address] [place] [address] Result Comment: Carc inoembryonic antigen test is used as an aid in monitoring response to treatment or recurrence in patients with established colorectal, breast, lung, prostatic, pancreatic, and ovarian carcinomas. Clinical correlation is required.The Carcinoembryonic antigen test was performed using the Bryce Tipp[employer] Unicel DXI paramagnetic particle chemiluminescent immunoassay method. Results obtained with different assay methods or kits cannot be used interchangeably. Performed By: #### 2 039-6 ####[facility] LABCLIA [id number] [place] [address] [place] CNOVSPon 10-12-2024 CNOVSP Normal [facility] Comprehensive metabolic 2000 panelOrdered By: Cody Hurtado on 10-12-2024 Albumin [Mass/Vol] 3.8 g/dL Low 3.9 - 4.9 g/dL [facility] ALP [Catalytic activity/Vol] 109 U/L 38 - 113 U/L [facility] ALT [Catalytic activity/Vol] 9 U/L Low 10 - 54 U/L [facility] Anion gap [Moles/Vol] 9 mmol/L 8 - 15 mmol/L [facility] AST [Catalytic activity/Vol] 13 U/L Low 14 - 40 U/L [facility] Bilirubin [Mass/Vol] 0.4 mg/dL 0.2 - 1 .3 mg/dL [facility] Calcium [Mass/Vol] 9.3 mg/dL 8.5 - 10. 2 mg/dL [facility] Chloride [Moles/Vol] 102 mmol/L 98 - 10 7 mmol/L [facility] CO2 [Moles/Vol] 27 mmol/L 22 - 30 mmol/L [facility] Creatinine [Mass/Vol] 0.75 mg/dL 0.73 - 1.22 mg/dL [facility] GFR/1.73 sq M.predicted among non-blacks MDRD (S/P/Bld) [Vol rate/Area] 94 mL/min/{1.73_m2} - PINF [facility] Comment on above: Estimated Glomerular Filtration Rate (eGFR) is calculated using the 2020 CKD-EPI creatinine equation. This equation utilizes serum creatinine, sex, and age as parameters. The creatinine assay has traceable calibration to isotope dilution-mass spectrometry. Refer to KDIGO guidelines for clinical interpretation. In patients with unstable renal function, e.g. those with acute kidney injury, the eGFR may not accurately reflect actual GFR. Glucose [Mass/Vol] 157 mg/dL High 74 - 99 mg/dL [facility] Comment on above: The [place] Di[employer] Association (ADA) provides guidance for cutoff values for fasting glucose and random glucose. The ADA defines fasting as no caloric intake for at least 8 hours. Fasting plasma glucose results between 100 to 125 mg/dL indicate increased risk for diabetes (prediabetes). Fasting plasma glucose results greater than or equal to 126 mg/dL meet the criteria for diagnosis of diabetes. In the absence of unequivocal hyperglycemia, results should be confirmed by repeat testing. In a patient with classic symptoms of hyperglycemia or hyperglycemic crisis, random plasma glucose results greater than or equal to 200 mg/dL meet the criteria for diagnosis of diabetes. Reference: Standards of Medical Care in Diabetes 2016, [place] [employer]. Diabetes Care. 2016.39(Suppl 1). Interpretation and review of laboratory results Abnormal [facility] Potassium [Moles/Vol] 3.8 mmol/L 3.7 - 5.1 mmol/L [facility] Protein [Mass/Vol] 7.2 g/dL 6.3 - 8.0 g/dL [facility] Sodium [Moles/Vol] 138 mmol/L 136 - 144 mmol/L [facility] Urea nitrogen [Mass/Vol] 12 mg/dL 9 - 24 mg/dL [facility] Comprehensive metabolic 2000 panelon 10-12-2024 Albumin [Mass/Vol] 3.8 g/dL Low 3.9-4.9 [facility] Comment on above: Order Comment: Patti margaret Type: BLOOD SPECIMENOrdering Facility: [facility] Address: [address] [place] [address] Performed By: #### 2 4323-8, 29616-4 ####[facility] HOSPITALGIANNAA [id number] [place] [address] [place] ALP [Catalytic activity/Vol] 109 U/L Normal 38-113 [facility] Comment on above: Order Comment: Willam robles Type: BLOOD SPECIMENOrdering Facility: [facility] Address: [address] [place] [address] Performed By: #### 2 4323-8, 11439-4 ####[facility] HOSPITALFALGUNIA [id number] [place] [address] [place] ALT [Catalytic activity/Vol] 9 U/L Low 10-54 [facility] Comment on above: Order Comment: Patti men Type: BLOOD SPECIMENOrdering Facility: [facility] Address: [address] [place] [address] Performed By: #### 2 4323-8, 76610-7 ####[facility] HOSPITALNCLIA [id number] [place] [address] [place] Anion gap [Moles/Vol] 9 mmol/L Normal 8-15 [facility] Comment on above: Order Comment: Speci men Type: BLOOD SPECIMENOrdering Facility: [facility] Address: [address] [place] [address] Performed By: #### 2 4323-8, ####[facility]OSPITALNCLIA [id number] [place] [address] [place] AST [Catalytic activity/Vol] 13 U/L Low 14-40 [facility] Comment on above: Order Comment: Speci men Type: BLOOD SPECIMENOrdering Facility: [facility] Address: [address] [place] [address] Performed By: #### 2 4323-8, ####[facility] HOSPITALNCLIA [id number] [place] [address] [place] Bilirubin [Mass/Vol] 0.4 mg/dL Normal 0.2-1.3 [facility] Comment on above: Order Comment: Speci men Type: BLOOD SPECIMENOrdering Facility: [facility] Address: [address] [place] [address] Performed By: #### 2 4323-8, ####[facility]OSPITALNCLIA [id number] [place] [address] [place] Calcium [Mass/Vol] 9.3 mg/dL Normal 8.5-10.2 [facility] Comment on above: Order Comment: Speci men Type: BLOOD SPECIMENOrdering Facility: [facility] Address: [address] [place], [place] [address] Performed By: #### 2 4323-8, ####[facility]OSPITALNCLIA [id number] [place] [address] [place] Chloride [Moles/Vol] 102 mmol/L Normal 98-107 [facility] Comment on above: Order Comment: Speci men Type: BLOOD SPECIMENOrdering Facility: [facility] Address: [address] [place], [place] [address] Performed By: #### 2 4323-8, 73150-7 ####[facility] TEDDYBAYARDFALGUNIA [id number] [place] [address] [place] CO2 [Moles/Vol] 27 mmol/L Normal 22-30 [facility] Comment on above: Order Comment: Speci men Type: BLOOD SPECIMENOrdering Facility: [facility] Address: [address] [place] [address] Performed By: #### 2 4323-8, 36399-9 ####[facility] HOSPITALNCBECKYA [id number] [address] [place] Creatinine [Mass/Vol] 0.75 mg/dL Normal 0.73-1.22 [facility] Comment on above: Order Comment: Speci men Type: BLOOD SPECIMENOrdering Facility: [facility] Address: [address] [place] [address] Performed By: #### 2 4323-8, ####[facility]OSPITALNCLIA [id number] [address] Creatinine and Glomerular filtration rate.predicted panel (S/P/Bld) 94 mL/min/1.73m??? Normal >=60 [facility] Comment on above: Order Comment: Speci men Type: BLOOD SPECIMENOrdering Facility: [facility] Address: [address] [place] [address] Result Comment: Rod mated Glomerular Filtration Rate (eGFR) is calculated using the 2020 CKD-EPI creatinine equation. This equation utilizes serum creatinine, sex, and age as parameters. The creatinine assay has traceable calibration to isotope dilution-mass spectrometry. Refer to KDIGO guidelines for clinical interpretation. In patients with unstable renal function, e.g. those with acute kidney injury, the eGFR may not accurately reflect actual GFR. Performed By: #### 2 4323-8, ####[facility]ENWNCLIA [id number] [place] [address] [place] Glucose [Mass/Vol] 157 mg/dL High 74-99 [facility] Comment on above: Order Comment: Speci men Type: BLOOD SPECIMENOrdering Facility: [facility] Address: [address] [place] [address] Result Comment: The [place] Diabetes Association (ADA) provides guidance for cutoff values for fasting glucose and random glucose. The ADA defines fasting as no caloric intake for at least 8 hours. Fasting plasma glucose results between 100 to 125 mg/dL indicate increased risk for diabetes (prediabetes).Fasting plasma glucose results greater than or equal to 126 mg/dL meet the criteria for diagnosis of diabetes. In the absence of unequivocal hyperglycemia, results should be confirmed by repeat testing. In a patient with classic symptoms of hyperglycemia or hyperglycemic crisis, random plasma glucose results greater than or equal to 200 mg/dL meet the criteria for diagnosis of diabetes.Reference: Standards of Medical Care in Diabetes 2016, [place] [employer]. Diabetes Care. 2016.39(Suppl 1). Performed By: #### 2 4323-8, ####[facility] HOSPITALNCLIA [id number] [place] [address] [place] Potassium [Moles/Vol] 3.8 mmol/L Normal 3.7-5.1 [facility] Comment on above: Order Comment: Speci men Type: BLOOD SPECIMENOrdering Facility: [facility] Address: [address] [place] [address] Performed By: #### 2 4323-8, ####[facility] NORTHLIA [id number] [place] [address] [place] Protein [Mass/Vol] 7.2 g/dL Normal 6.3-8.0 [facility] Comment on above: Order Comment: Speci men Type: BLOOD SPECIMENOrdering Facility: [facility] Address: [address] [place] [address] Performed By: #### 2 4323-8, ####[facility] MILLTOWNCLIA [id number] [place] [address] [place] Sodium [Moles/Vol] 138 mmol/L Normal 136-144 [facility] Comment on above: Order Comment: Speci men Type: BLOOD SPECIMENOrdering Facility: [facility] Address: [address] [place] [address] Performed By: #### 2 4323-8, ####[facility] MILLWHILIA [id number] [place] [address] [place] Urea nitrogen [Mass/Vol] 12 mg/dL Normal 9-24 [facility] Comment on above: Order Comment: Speci men Type: BLOOD SPECIMENOrdering Facility: [facility] Address: [address] [place] [address] Performed By: #### 2 4328, ####[facility] NORTHLIA [id number] [place] [address] [place] MAGNESIUMon 10-12-2024 Magnesium [Mass/Vol] 1.8 mg/dL 1.7 - 2 .3 mg/dL [facility] Magnesium SerPl-mCncon 10-12 Magnesium [Mass/Vol] 1.8 mg/dL Normal 1.7-2.3 [facility] Comment on above: Order Comment: Speci men Type: BLOOD SPECIMENOrdering Facility: [facility] Address: [address] [place], [place] [address] Performed By: #### 2 4323-8, ####[facility] MILLWNCLIA [id number] [place] [address] [place] Magnesium [Mass/Vol]on 10-12 Interpretation and review of laboratory results Normal [facility] No Panel InformationOrdered By: Cody Hurtado on 10-12-2024 [facility] CBC W Auto Differential pane l (Bld)on 09-28-2024 Basophils (Bld) [#/Vol] 0.03 10*3/uL [facility] Basophils/100 WBC (Bld) 0.5 % [facility] Differential cell count method Nom (Bld) Auto [facility] Eosinophils (Bld) [#/Vol] 0.09 10*3/uL [facility] Eosinophils/100 WBC (Bld) 1.5 % [facility] Erythrocyte distribution width (RBC) [Ratio] 22.3 % High 11.5 - 15.0 % [facility] Hematocrit (Bld) [Volume fraction] 29 % Low 39.0 - 51.0 % [facility] Hemoglobin (Bld) [Mass/Vol] 8.8 g/dL Low 13.0 - 17.0 g/dL [facility] Immature granulocytes (Bld) [#/Vol] 0.21 10*3/uL High [facility] Immature granulocytes/100 WBC (Bld) 3.6 % [facility] Interpretation and review of laboratory results Abnormal [facility] Lymphocytes (Bld) [#/Vol] 0.89 10*3/uL Low [facility] Lymphocytes/100 WBC (Bld) 15.3 % [facility] MCH (RBC) [Entitic mass] 28.9 pg 26.0 - 34.0 pg [facility] MCHC (RBC) [Mass/Vol] 30.3 g/dL Low 30.5 - 36.0 g/dL [facility] MCV (RBC) [Entitic vol] 95.1 fL 80.0 - 100.0 fL [facility] Monocytes (Bld) [#/Vol] 0.48 10*3/uL [facility] Monocytes/100 WBC (Bld) 8.2 % [facility] Neutrophils (Bld) [#/Vol] 4.12 10*3/uL [facility] Neutrophils/100 WBC (Bld) 70.9 % [facility] Nucleated RBC (Bld) [#/Vol] [facility] Nucleated RBC/100 WBC (Bld) [Ratio] 0 % /100 WBC [facility] Platelet mean volume (Bld) [Entitic vol] 9.8 fL 9.0 - 12.7 fL [facility] Platelets (Bld) [#/Vol] 143 10*3/uL Low [facility] RBC (Bld) [#/Vol] 3.05 10*6/uL Low 4.20 - 6.0 0 m/uL [facility] WBC (Bld) [#/Vol] 5.82 10*3/uL [facility] Basophils (Bld) [#/Vol] 0.03 10*3/uL Normal <0.11 [facility] Comment on above: Order Comment: Speci men Type: BLOOD SPECIMENOrdering Facility: [facility] Address: [address] [place] [address] Performed By: #### 5 7021-8 ####[facility] NORTHLIA [id number] [place] [address] [place] Basophils/100 WBC (Bld) 0.5 % Normal [facility] Comment on above: Order Comment: Speci men Type: BLOOD SPECIMENOrdering Facility: [facility] Address: [address] [place] [address] Performed By: #### 5 7021-8 ####[facility] NORTHLIA [id number] [place] [address] [place] Differential cell count method Nom (Bld) Auto Normal [facility] Comment on above: Order Comment: Speci men Type: BLOOD SPECIMENOrdering Facility: [facility] Address: [address] [place] [address] Performed By: #### 5 7021-8 ####[facility] NORTHLIA [id number] [place] [address] [place] Eosinophils (Bld) [#/Vol] 0.09 10*3/uL Normal <0.46 [facility] Comment on above: Order Comment: Speci men Type: BLOOD SPECIMENOrdering Facility: [facility] Address: [address] [place] [address] Performed By: #### 5 7021-8 ####[facility] [id number] [place] [address] [place] Eosinophils/100 WBC (Bld) 1.5 % Normal [facility] Comment on above: Order Comment: Speci men Type: BLOOD SPECIMENOrdering Facility: [facility] Address: [address] [place] [address] Performed By: #### 5 7021-8 ####[facility] [id number] [place] [address] [place] Erythrocyte distribution width (RBC) [Ratio] 22.3 % High 11.5-15.0 [facility] Comment on above: Order Comment: Speci men Type: BLOOD SPECIMENOrdering Facility: [facility] Address: [address] [place] [address] Performed By: #### 5 7021-8 ####[facility] [id number] [place] [address] [place] Hematocrit (Bld) [Volume fraction] 29.0 % Low 39.0-51.0 [facility] Comment on above: Order Comment: Speci men Type: BLOOD SPECIMENOrdering Facility: [facility] Address: [address] [place] [address] Performed By: #### 5 7021-8 ####[facility] [id number] [place] [address] [place] Hemoglobin (Bld) [Mass/Vol] 8.8 g/dL Low 13.0-17.0 [facility] Comment on above: Order Comment: Speci men Type: BLOOD SPECIMENOrdering Facility: [facility] Address: [address] [place] [address] Performed By: #### 5 7021-8 ####[facility]OSPITALNCLI [id number] [place] [address] [place] Immature granulocytes (Bld) [#/Vol] 0.21 10*3/uL High <0.10 [facility] Comment on above: Order Comment: Speci men Type: BLOOD SPECIMENOrdering Facility: [facility] Address: [address] [place] [address] Performed By: #### 5 7021-8 ####[facility] HOSPITALBANG [id number] [address] [place] [facility] Immature granulocytes/100 WBC (Bld) 3.6 % Normal [facility] Comment on above: Order Comment: Speci men Type: BLOOD SPECIMENOrdering Facility: [facility] Address: [address] [place] [address] Performed By: #### 5 7021-8 ####[facility] [id number] [place] [address] [place] Lymphocytes (Bld) [#/Vol] 0.89 10*3/uL Low 1.00-4.00 [facility] Comment on above: Order Comment: Speci men Type: BLOOD SPECIMENOrdering Facility: [facility] Address: [address] [place] [address] Performed By: #### 5 7021-8 ####[facility] [id number] [address] [place] [facility] Lymphocytes/100 WBC (Bld) 15.3 % Normal [facility] Comment on above: Order Comment: Speci men Type: BLOOD SPECIMENOrdering Facility: [facility] Address: [address] [place] [address] Performed By: #### 5 7021-8 ####[facility]OSPITALNCLIA [id number] [place] [address] [place] MCH (RBC) [Entitic mass] 28.9 pg Normal 26.0-34.0 [facility] Comment on above: Order Comment: Speci men Type: BLOOD SPECIMENOrdering Facility: [facility] Address: [address] [place] [address] Performed By: #### 5 7021-8 ####[facility] HOSPITALFALGUNIA [id number] [place] [address] [place] MCHC (RBC) [Mass/Vol] 30.3 g/dL Low 30.5-36.0 [facility] Comment on above: Order Comment: Speci men Type: BLOOD SPECIMENOrdering Facility: [facility] Address: [address] [place] [address] Performed By: #### 5 7021-8 ####[facility] [id number] [place] [address] [place] MCV (RBC) [Entitic vol] 95.1 fL Normal 80.0-100.0 [facility] Comment on above: Order Comment: Speci men Type: BLOOD SPECIMENOrdering Facility: [facility] Address: [address] [place] [address] Performed By: #### 5 7021-8 ####[facility] [id number] [place] [address] [place] Monocytes (Bld) [#/Vol] 0.48 10*3/uL Normal <0.87 [facility] Comment on above: Order Comment: Speci men Type: BLOOD SPECIMENOrdering Facility: [facility] Address: [address] [place] [address] Performed By: #### 5 7021-8 ####[facility] [id number] [place] [address] [place] Monocytes/100 WBC (Bld) 8.2 % Normal [facility] Comment on above: Order Comment: Speci men Type: BLOOD SPECIMENOrdering Facility: [facility] Address: [address] [place] [address] Performed By: #### 5 7021-8 ####[facility] [id number] [place] [address] [place] Neutrophils (Bld) [#/Vol] 4.12 10*3/uL Normal 1.45-7.50 [facility] Comment on above: Order Comment: Speci men Type: BLOOD SPECIMENOrdering Facility: [facility] Address: [address] [place] [address] Performed By: #### 5 7021-8 ####[facility] MILLWNCLIA [id number] [place] [address] [place] Neutrophils/100 WBC (Bld) 70.9 % Normal [facility] Comment on above: Order Comment: Speci men Type: BLOOD SPECIMENOrdering Facility: [facility] Address: [address] [place] [address] Performed By: #### 5 7021-8 ####[facility] [id number] [place] [address] [place] Nucleated RBC (Bld) [#/Vol] 10*3/uL Normal <0.01 [facility] Comment on above: Order Comment: Speci men Type: BLOOD SPECIMENOrdering Facility: [facility] Address: [address] [place] [address] Performed By: #### 5 7021-8 ####[facility]LIA [id number] [place] [address] [place] Nucleated RBC/100 WBC (Bld) [Ratio] 0.0 /100 WBC Normal [facility] Comment on above: Order Comment: Speci men Type: BLOOD SPECIMENOrdering Facility: [facility] Address: [address] [place] [address] Performed By: #### 5 7021-8 ####[facility]ITALA [id number] [place] [address] [place] Platelet mean volume (Bld) [Entitic vol] 9.8 fL Normal 9.0-12.7 [facility] Comment on above: Order Comment: Speci men Type: BLOOD SPECIMENOrdering Facility: [facility] Address: [address] [place] [address] Performed By: #### 5 7021-8 ####[facility] ANGEL [id number] [place] [address] [place] Platelets (Bld) [#/Vol] 143 10*3/uL Low 150-400 [facility] Comment on above: Order Comment: Speci men Type: BLOOD SPECIMENOrdering Facility: [facility] Address: [address] [place] [address] Performed By: #### 5 7021-8 ####[facility]PITALNCLIA [id number] [place] [address] [place] RBC (Bld) [#/Vol] 3.05 10*6/uL Low 4.20-6.00 [facility] Comment on above: Order Comment: Speci men Type: BLOOD SPECIMENOrdering Facility: [facility] Address: [address] [place] [address] Performed By: #### 5 7021-8 ####[facility] HOSPITALNCA [id number] [place] [address] [place] WBC (Bld) [#/Vol] 5.82 10*3/uL Normal 3.70-11.00 [facility] Comment on above: Order Comment: Speci men Type: BLOOD SPECIMENOrdering Facility: [facility] Address: [address] [place] [address] Performed By: #### 5 7021-8 ####[facility]PITALNCLIA [id number] [place] [address] [place] CEA SerPl-mCncon 09-28-2024 Carcinoembryonic Ag [Mass/Vol] 25.5 ng/mL High <=2.9 [facility] Comment on above: Order Comment: Speci men Type: BLOOD SPECIMENOrdering Facility: [facility] Address: [address] [place] [address] [place] [address] Result Comment: Carc inoembryonic antigen test is used as an aid in monitoring response to treatment or recurrence in patients with established colorectal, breast, lung, prostatic, pancreatic, and ovarian carcinomas. Clinical correlation is required.The Carcinoembryonic antigen test was performed using the [employer] DXI paramagnetic particle chemiluminescent immunoassay method. Results obtained with different assay methods or kits cannot be used interchangeably. Performed By: #### 2 039-6 ####[facility] LABCLIA [id number] [place] [address] [place] Comprehensive metabolic 2000 panelOrdered By: Cody Hurtado on 09-28-2024 Albumin [Mass/Vol] 3.6 g/dL Low 3.9 - 4.9 g/dL [facility] ALP [Catalytic activity/Vol] 139 U/L High 38 - 113 U/L [facility] ALT [Catalytic activity/Vol] 10 U/L 10 - 54 U/L [facility] Anion gap [Moles/Vol] 6 mmol/L Low 8 - 15 mmol/L [facility] AST [Catalytic activity/Vol] 14 U/L 14 - 40 U/L [facility] Bilirubin [Mass/Vol] 0.5 mg/dL 0.2 - 1 .3 mg/dL [facility] Calcium [Mass/Vol] 9 mg/dL 8.5 - 10. 2 mg/dL [facility] Chloride [Moles/Vol] 105 mmol/L 98 - 10 7 mmol/L [facility] CO2 [Moles/Vol] 29 mmol/L 22 - 30 mmol/L [facility] Creatinine [Mass/Vol] 0.72 mg/dL Low 0.73 - 1.22 mg/dL [facility] GFR/1.73 sq M.predicted among non-blacks MDRD (S/P/Bld) [Vol rate/Area] 95 mL/min/{1.73_m2} - PINF [facility] Comment on above: Estimated Glomerular Filtration Rate (eGFR) is calculated using the 2020 CKD-EPI creatinine equation. This equation utilizes serum creatinine, sex, and age as parameters. The creatinine assay has traceable calibration to isotope dilution-mass spectrometry. Refer to KDIGO guidelines for clinical interpretation. In patients with unstable renal function, e.g. those with acute kidney injury, the eGFR may not accurately reflect actual GFR. Glucose [Mass/Vol] 170 mg/dL High 74 - 99 mg/dL [facility] Comment on above: The [place] Di[employer] [place] Association (ADA) provides guidance for cutoff values for fasting glucose and random glucose. The ADA defines fasting as no caloric intake for at least 8 hours. Fasting plasma glucose results between 100 to 125 mg/dL indicate increased risk for diabetes (prediabetes). Fasting plasma glucose results greater than or equal to 126 mg/dL meet the criteria for diagnosis of diabetes. In the absence of unequivocal hyperglycemia, results should be confirmed by repeat testing. In a patient with classic symptoms of hyperglycemia or hyperglycemic crisis, random plasma glucose results greater than or equal to 200 mg/dL meet the criteria for diagnosis of diabetes. Reference: Standards of Medical Care in Diabetes 2016, [place] [employer]. Diabetes Care. 2016.39(Suppl 1). Interpretation and review of laboratory results Abnormal [facility] Potassium [Moles/Vol] 3.7 mmol/L 3.7 - 5.1 mmol/L [facility] Protein [Mass/Vol] 7 g/dL 6.3 - 8.0 g/dL [facility] Sodium [Moles/Vol] 140 mmol/L 136 - 144 mmol/L [facility] Urea nitrogen [Mass/Vol] 14 mg/dL 9 - 24 mg/dL [facility] Comprehensive metabolic 2000 panelon 09-28-2024 Albumin [Mass/Vol] 3.6 g/dL Low 3.9-4.9 [facility] Comment on above: Order Comment: Speci men Type: BLOOD SPECIMENOrdering Facility: [facility] Address: [address] [place] [address] Performed By: #### 2 4323-8, ####[facility] [id number] [place] [address] [place] ALP [Catalytic activity/Vol] 139 U/L High 38-113 [facility] Comment on above: Order Comment: Speci men Type: BLOOD SPECIMENOrdering Facility: [facility] Address: [address] [place] [address] Performed By: #### 2 432-8, ####[facility] MILLTOWNCLIA [id number] [place] [address] [place] ALT [Catalytic activity/Vol] 10 U/L Normal 10-54 [facility] Comment on above: Order Comment: Speci men Type: BLOOD SPECIMENOrdering Facility: [facility] Address: [address] [place] [address] Performed By: #### 2 4323-8, ####[facility] MILLTOWNCLIA [id number] [place] [address] [place] Anion gap [Moles/Vol] 6 mmol/L Low 8-15 [facility] Comment on above: Order Comment: Speci men Type: BLOOD SPECIMENOrdering Facility: [facility] Address: [address] [place] [address] Performed By: #### 2 4323-8, ####[facility]ITALNCLIA [id number] [place] [address] [place] AST [Catalytic activity/Vol] 14 U/L Normal 14-40 [facility] Comment on above: Order Comment: Speci men Type: BLOOD SPECIMENOrdering Facility: [facility] Address: [address] [place] [address] Performed By: #### 2 4323-8, ####[facility] GARDENWNCLIA [id number] [place] [address] [place] Bilirubin [Mass/Vol] 0.5 mg/dL Normal 0.2-1.3 [facility] Comment on above: Order Comment: Speci men Type: BLOOD SPECIMENOrdering Facility: [facility] Address: [address] [place] [address] Performed By: #### 2 4323-8, ####[facility]ITALNCLIA [id number] [place] [address] [place] Calcium [Mass/Vol] 9.0 mg/dL Normal 8.5-10.2 [facility] Comment on above: Order Comment: Speci men Type: BLOOD SPECIMENOrdering Facility: [facility] Address: [address] [place] [address] Performed By: #### 2 4323-8, ####[facility] CLAU MILLTOWGIANNALIA [id number] [place] [address] [place] Chloride [Moles/Vol] 105 mmol/L Normal 98-107 [facility] Comment on above: Order Comment: Speci men Type: BLOOD SPECIMENOrdering Facility: [facility] Address: [address] [place] [address] Performed By: #### 2 4323-8, ####[facility] HOSPITALGIANNALIA [id number] [place] [address] [place] CO2 [Moles/Vol] 29 mmol/L Normal 22-30 [facility] Comment on above: Order Comment: Speci men Type: BLOOD SPECIMENOrdering Facility: [facility] Address: [address] [place] [address] Performed By: #### 2 4323-8, ####[facility] MILLWHILIA [id number] [place] [address] [place] Creatinine [Mass/Vol] 0.72 mg/dL Low 0.73-1.22 [facility] Comment on above: Order Comment: Speci men Type: BLOOD SPECIMENOrdering Facility: [facility] Address: [address] [place] [address] Performed By: #### 2 4323-8, ####[facility] CLAU MILLWNCLIA [id number] [place] [address] [place] Creatinine and Glomerular filtration rate.predicted panel (S/P/Bld) 95 mL/min/1.73m??? Normal >=60 [facility] Comment on above: Order Comment: Willam robles Type: BLOOD SPECIMENOrdering Facility: [facility] Address: [address] [place] [address] Result Comment: Rod mated Glomerular Filtration Rate (eGFR) is calculated using the 2020 CKD-EPI creatinine equation. This equation utilizes serum creatinine, sex, and age as parameters. The creatinine assay has traceable calibration to isotope dilution-mass spectrometry. Refer to KDIGO guidelines for clinical interpretation. In patients with unstable renal function, e.g. those with acute kidney injury, the eGFR may not accurately reflect actual GFR. Performed By: #### 2 4323-8, 77870-7 ####[facility] [id number] [place] [address] [place] Glucose [Mass/Vol] 170 mg/dL High 74-99 [facility] Comment on above: Order Comment: Willam robles Type: BLOOD SPECIMENOrdering Facility: [facility] Address: [address] [place] [address] Result Comment: The [place] Diabetes Association (ADA) provides guidance for cutoff values for fasting glucose and random glucose. The ADA defines fasting as no caloric intake for at least 8 hours. Fasting plasma glucose results between 100 to 125 mg/dL indicate increased risk for diabetes (prediabetes).Fasting plasma glucose results greater than or equal to 126 mg/dL meet the criteria for diagnosis of diabetes. In the absence of unequivocal hyperglycemia, results should be confirmed by repeat testing. In a patient with classic symptoms of hyperglycemia or hyperglycemic crisis, random plasma glucose results greater than or equal to 200 mg/dL meet the criteria for diagnosis of diabetes.Reference: Standards of Medical Care in Diabetes 2016, [place] [employer]. Diabetes Care. 2016.39(Suppl 1). Performed By: #### 2 4323-8, 29519-8 ####[facility] NORTHBECKYA [id number] [place] [address] [place] Potassium [Moles/Vol] 3.7 mmol/L Normal 3.7-5.1 [facility] Comment on above: Order Comment: Speci men Type: BLOOD SPECIMENOrdering Facility: [facility] Address: [address] [place] [address] Performed By: #### 2 4323-8, ####[facility] CLAUYEIMI ESPINALRYAN [id number] [place] [address] [place] Protein [Mass/Vol] 7.0 g/dL Normal 6.3-8.0 [facility] Comment on above: Order Comment: Speci men Type: BLOOD SPECIMENOrdering Facility: [facility] Address: [address] [place] [address] Performed By: #### 2 4323-8, ####[facility] CLAU ORTIZ [id number] [place] [address] [place] Sodium [Moles/Vol] 140 mmol/L Normal 136-144 [facility] Comment on above: Order Comment: Speci men Type: BLOOD SPECIMENOrdering Facility: [facility] Address: [address] [place] [address] Performed By: #### 2 4323-8, ####[facility] CLAU ORTIZ [id number] [place] [address] [place] Urea nitrogen [Mass/Vol] 14 mg/dL Normal 9-24 [facility] Comment on above: Order Comment: Speci men Type: BLOOD SPECIMENOrdering Facility: [facility] Address: [address] [place], [place] [address] Performed By: #### 2 4323-8, ####[facility] CLAU GRETCHENA [id number] [place] [address] [place] MAGNESIUMon 09-28-2024 Magnesium [Mass/Vol] 1.7 mg/dL 1.7 - 2 .3 mg/dL [facility] Magnesium SerPl-mCncon 09-28 Magnesium [Mass/Vol] 1.7 mg/dL Normal 1.7-2.3 [facility] Comment on above: Order Comment: Speci men Type: BLOOD SPECIMENOrdering Facility: [facility] Address: [place] [address] Performed By: #### 2 4323-8, 81953-3 ####[facility] [id number] [place] [address] [place] Magnesium [Mass/Vol]on 09-28 Interpretation and review of laboratory results Normal [facility] No Panel InformationOrdered By: Cody Hurtado on 09-28-2024 [facility] UA DIP, URINE (POC)on 2024 BILIRUBIN UA (POCT) Negative Negative [facility] CLARITY UA (POCT) Slightly Cloudy Cl [facility] COLOR UA (POCT) Jocelin [facility] GLUCOSE UA (POCT) 100 mg/dL Abnormal Negative [facility] Hemoglobin Ql (U) Negative Negative [facility] Interpretation and review of laboratory results Abnormal [facility] KETONE UA (POCT) Negative Negative mg/dL [facility] LEUKOCYTES UA (POCT) Negative Negative [facility] NITRITE UA (POCT) Negative Negative [facility] PH UA (POCT) 6.5 4.5 - 8.0 [facility] Protein Ql (U) Trace Abnormal Negative mg/dL [facility] SPECIFIC GRAVITY UA (POCT) 1.025 1.005 - 1.030 [facility] UROBILINOGEN UA (POCT) >=8.0 Abnormal Normal E.U./dL [facility] Location:[facility], [address] [place], [place], [address] [place] [address] POINT OF CARE [facility] CNPNon 09-23-2024 CNPN Normal [facility] CBC W Auto Differential pane l (Bld)on 09-14-2024 Basophils (Bld) [#/Vol] NINF [facility] Basophils/100 WBC (Bld) 0.4 % [facility] Differential cell count method Nom (Bld) Auto [facility] Eosinophils (Bld) [#/Vol] 0.08 10*3/uL NINF [facility] Eosinophils/100 WBC (Bld) 1.5 % [facility] Erythrocyte distribution width (RBC) [Ratio] 22.1 % High 11.5 - 15.0 % [facility] Hematocrit (Bld) [Volume fraction] 29 % Low 39.0 - 51.0 % [facility] Hemoglobin (Bld) [Mass/Vol] 8.5 g/dL Low 13.0 - 17.0 g/dL [facility] Immature granulocytes (Bld) [#/Vol] 0.23 10*3/uL High [facility] Immature granulocytes/100 WBC (Bld) 4.3 % [facility] Interpretation and review of laboratory results Abnormal [facility] Lymphocytes (Bld) [#/Vol] 0.76 10*3/uL Low [facility] Lymphocytes/100 WBC (Bld) 14.1 % [facility] MCH (RBC) [Entitic mass] 28.2 pg 26.0 - 34.0 pg [facility] MCHC (RBC) [Mass/Vol] 29.3 g/dL Low 30.5 - 36.0 g/dL [facility] MCV (RBC) [Entitic vol] 96.3 fL 80.0 - 100.0 fL [facility] Monocytes (Bld) [#/Vol] 0.48 10*3/uL [facility] Monocytes/100 WBC (Bld) 8.9 % [facility] Neutrophils (Bld) [#/Vol] 3.81 10*3/uL [facility] Neutrophils/100 WBC (Bld) 70.8 % [facility] Nucleated RBC (Bld) [#/Vol] 0.04 10*3/uL High [facility] Nucleated RBC/100 WBC (Bld) [Ratio] 0.7 % /100 WBC [facility] Platelet mean volume (Bld) [Entitic vol] 9.7 fL 9.0 - 12.7 fL [facility] Platelets (Bld) [#/Vol] 140 10*3/uL Low [facility] RBC (Bld) [#/Vol] 3.01 10*6/uL Low 4.20 - 6.0 0 m/uL [facility] WBC (Bld) [#/Vol] 5.38 10*3/uL [facility] Basophils (Bld) [#/Vol] 10*3/uL Normal <0.11 [facility] Comment on above: Order Comment: Speci men Type: BLOOD SPECIMENOrdering Facility: [facility] Address: [address] [place] [address] Performed By: #### 5 7021-8 ####[facility] TEDDYWNCLIA [id number] [place] [address] [place] Basophils/100 WBC (Bld) 0.4 % Normal [facility] Comment on above: Order Comment: Speci men Type: BLOOD SPECIMENOrdering Facility: [facility] Address: [address] [place] [address] Performed By: #### 5 7021-8 ####[facility] NORTHLIA [id number] [place] [address] [place] Differential cell count method Nom (Bld) Auto Normal [facility] Comment on above: Order Comment: Speci men Type: BLOOD SPECIMENOrdering Facility: [facility] Address: [address] [place] [address] Performed By: #### 5 7021-8 ####[facility]ITALNCLIA [id number] [place] [address] [place] Eosinophils (Bld) [#/Vol] 0.08 10*3/uL Normal <0.46 [facility] Comment on above: Order Comment: Speci men Type: BLOOD SPECIMENOrdering Facility: [facility] Address: [address] [place] [address] Performed By: #### 5 7021-8 ####[facility] MILLWNCLIA [id number] [place] [address] [place] Eosinophils/100 WBC (Bld) 1.5 % Normal [facility] Comment on above: Order Comment: Speci men Type: BLOOD SPECIMENOrdering Facility: [facility] Address: [address] [place] [address] Performed By: #### 5 7021-8 ####[facility] HOSPITALBAYARDGIANNALIA [id number] [place] [address] [place] Erythrocyte distribution width (RBC) [Ratio] 22.1 % High 11.5-15.0 [facility] Comment on above: Order Comment: Speci men Type: BLOOD SPECIMENOrdering Facility: [facility] Address: [address] [place] [address] Performed By: #### 5 7021-8 ####[facility] NORTHBECKY [id number] [place] [address] [place] Hematocrit (Bld) [Volume fraction] 29.0 % Low 39.0-51.0 [facility] Comment on above: Order Comment: Speci men Type: BLOOD SPECIMENOrdering Facility: [facility] Address: [address] [place] [address] Performed By: #### 5 7021-8 ####[facility] [id number] [place] [address] [place] Hemoglobin (Bld) [Mass/Vol] 8.5 g/dL Low 13.0-17.0 [facility] Comment on above: Order Comment: Speci men Type: BLOOD SPECIMENOrdering Facility: [facility] Address: [address] [place] [address] Performed By: #### 5 7021-8 ####[facility] [id number] [place] [address] [place] Immature granulocytes (Bld) [#/Vol] 0.23 10*3/uL High <0.10 [facility] Comment on above: Order Comment: Speci men Type: BLOOD SPECIMENOrdering Facility: [facility] Address: [address] [place] [address] Performed By: #### 5 7021-8 ####[facility]OSPITALNCLI [id number] [place] [address] [place] Immature granulocytes/100 WBC (Bld) 4.3 % Normal [facility] Comment on above: Order Comment: Speci men Type: BLOOD SPECIMENOrdering Facility: [facility] Address: [address] [place] [address] Performed By: #### 5 7021-8 ####[facility] [id number] [place] [address] [place] Lymphocytes (Bld) [#/Vol] 0.76 10*3/uL Low 1.00-4.00 [facility] Comment on above: Order Comment: Speci men Type: BLOOD SPECIMENOrdering Facility: [facility] Address: [address] [place] [address] Performed By: #### 5 7021-8 ####[facility] [id number] [place] [address] [place] Lymphocytes/100 WBC (Bld) 14.1 % Normal [facility] Comment on above: Order Comment: Speci men Type: BLOOD SPECIMENOrdering Facility: [facility] Address: [address] [place] [address] Performed By: #### 5 7021-8 ####[facility] [id number] [place] [address] [place] MCH (RBC) [Entitic mass] 28.2 pg Normal 26.0-34.0 [facility] Comment on above: Order Comment: Speci men Type: BLOOD SPECIMENOrdering Facility: [facility] Address: [address] [place] [address] Performed By: #### 5 7021-8 ####[facility] [id number] [place] [address] [place] MCHC (RBC) [Mass/Vol] 29.3 g/dL Low 30.5-36.0 [facility] Comment on above: Order Comment: Speci men Type: BLOOD SPECIMENOrdering Facility: [facility] Address: [address] [place] [address] Performed By: #### 5 7021-8 ####[facility]OSPITALBANG [id number] [place] [address] [place] MCV (RBC) [Entitic vol] 96.3 fL Normal 80.0-100.0 [facility] Comment on above: Order Comment: Speci men Type: BLOOD SPECIMENOrdering Facility: [facility] Address: [address] [place] [address] Performed By: #### 5 7021-8 ####[facility] [id number] [place] [address] [place] Monocytes (Bld) [#/Vol] 0.48 10*3/uL Normal <0.87 [facility] Comment on above: Order Comment: Speci men Type: BLOOD SPECIMENOrdering Facility: [facility] Address: [address] [place] [address] Performed By: #### 5 7021-8 ####[facility]ITALA [id number] [place] [address] [place] Monocytes/100 WBC (Bld) 8.9 % Normal [facility] Comment on above: Order Comment: Speci men Type: BLOOD SPECIMENOrdering Facility: [facility] Address: [address] [place] [address] Performed By: #### 5 7021-8 ####[facility]ITALNCLIA [id number] [place] [address] [place] Neutrophils (Bld) [#/Vol] 3.81 10*3/uL Normal 1.45-7.50 [facility] Comment on above: Order Comment: Speci men Type: BLOOD SPECIMENOrdering Facility: [facility] Address: [address] [place] [address] Performed By: #### 5 7021-8 ####[facility] GARDENWHILIA [id number] [place] [address] [place] Neutrophils/100 WBC (Bld) 70.8 % Normal [facility] Comment on above: Order Comment: Speci men Type: BLOOD SPECIMENOrdering Facility: [facility] Address: [address] [place] [address] Performed By: #### 5 7021-8 ####[facility] [id number] [place] [address] [place] Nucleated RBC (Bld) [#/Vol] 0.04 10*3/uL High <0.01 [facility] Comment on above: Order Comment: Speci men Type: BLOOD SPECIMENOrdering Facility: [facility] Address: [address] [place] [address] Performed By: #### 5 7021-8 ####[facility] [id number] [place] [address] [place] Nucleated RBC/100 WBC (Bld) [Ratio] 0.7 /100 WBC Normal [facility] Comment on above: Order Comment: Speci men Type: BLOOD SPECIMENOrdering Facility: [facility] Address: [address] [place] [address] Performed By: #### 5 7021-8 ####[facility] [id number] [place] [address] [place] Platelet mean volume (Bld) [Entitic vol] 9.7 fL Normal 9.0-12.7 [facility] Comment on above: Order Comment: Speci men Type: BLOOD SPECIMENOrdering Facility: [facility] Address: [address] [place] [address] Performed By: #### 5 7021-8 ####[facility]PITALNCLI [id number] [place] [address] [place] Platelets (Bld) [#/Vol] 140 10*3/uL Low 150-400 [facility] Comment on above: Order Comment: Speci men Type: BLOOD SPECIMENOrdering Facility: [facility] Address: [address] [place] [address] Performed By: #### 5 7021-8 ####[facility]ITALNCLIA [id number] [place] [address] [place] RBC (Bld) [#/Vol] 3.01 10*6/uL Low 4.20-6.00 [facility] Comment on above: Order Comment: Speci men Type: BLOOD SPECIMENOrdering Facility: [facility] Address: [address] [place] [address] Performed By: #### 5 7021-8 ####[facility]ITALNCLIA [id number] [place] [address] [place] WBC (Bld) [#/Vol] 5.38 10*3/uL Normal 3.70-11.00 [facility] Comment on above: Order Comment: Speci men Type: BLOOD SPECIMENOrdering Facility: [facility] Address: [address] [place] [address] Performed By: #### 5 7021-8 ####[facility]ITALNCLIA [id number] [place] [address] [place] CEA SerPl-mCncon 09-14-2024 Carcinoembryonic Ag [Mass/Vol] 18.4 ng/mL High <=2.9 [facility] Comment on above: Order Comment: Speci men Type: BLOOD SPECIMENOrdering Facility: [facility] Address: [address] [place] [address] Result Comment: Carc inoembryonic antigen test is used as an aid in monitoring response to treatment or recurrence in patients with established colorectal, breast, lung, prostatic, pancreatic, and ovarian carcinomas. Clinical correlation is required.The Carcinoembryonic antigen test was performed using the [employer] DXI paramagnetic particle chemiluminescent immunoassay method. Results obtained with different assay methods or kits cannot be used interchangeably. Performed By: #### 2 039-6 ####[facility] LABCLIA [id number] [place] [address] [place] CNOVSPon 09-14-2024 CNOVSP Normal [facility] CNPNon 09-14-2024 CNPN Normal [facility] Comprehensive metabolic 2000 panelOrdered By: Mady Cabello on 09-14-2024 Albumin [Mass/Vol] 3.6 g/dL Low 3.9 - 4.9 g/dL [facility] ALP [Catalytic activity/Vol] 133 U/L High 38 - 113 U/L [facility] ALT [Catalytic activity/Vol] 11 U/L 10 - 54 U/L [facility] Anion gap [Moles/Vol] 9 mmol/L 8 - 15 mmol/L [facility] AST [Catalytic activity/Vol] 14 U/L 14 - 40 U/L [facility] Bilirubin [Mass/Vol] 0.5 mg/dL 0.2 - 1 .3 mg/dL [facility] Calcium [Mass/Vol] 8.9 mg/dL 8.5 - 10. 2 mg/dL [facility] Chloride [Moles/Vol] 102 mmol/L 98 - 10 7 mmol/L [facility] CO2 [Moles/Vol] 27 mmol/L 22 - 30 mmol/L [facility] Creatinine [Mass/Vol] 0.74 mg/dL 0.73 - 1.22 mg/dL [facility] GFR/1.73 sq M.predicted among non-blacks MDRD (S/P/Bld) [Vol rate/Area] 94 mL/min/{1.73_m2} - PINF [facility] Comment on above: Estimated Glomerular Filtration Rate (eGFR) is calculated using the 2020 CKD-EPI creatinine equation. This equation utilizes serum creatinine, sex, and age as parameters. The creatinine assay has traceable calibration to isotope dilution-mass spectrometry. Refer to KDIGO guidelines for clinical interpretation. In patients with unstable renal function, e.g. those with acute kidney injury, the eGFR may not accurately reflect actual GFR. Glucose [Mass/Vol] 179 mg/dL High 74 - 99 mg/dL [facility] Comment on above: The [place] Di[employer] [place] Association (ADA) provides guidance for cutoff values for fasting glucose and random glucose. The ADA defines fasting as no caloric intake for at least 8 hours. Fasting plasma glucose results between 100 to 125 mg/dL indicate increased risk for diabetes (prediabetes). Fasting plasma glucose results greater than or equal to 126 mg/dL meet the criteria for diagnosis of diabetes. In the absence of unequivocal hyperglycemia, results should be confirmed by repeat testing. In a patient with classic symptoms of hyperglycemia or hyperglycemic crisis, random plasma glucose results greater than or equal to 200 mg/dL meet the criteria for diagnosis of diabetes. Reference: Standards of Medical Care in Diabetes 2016, [place] [employer]. Diabetes Care. 2016.39(Suppl 1). Potassium [Moles/Vol] 3.6 mmol/L Low 3.7 - 5.1 mmol/L [facility] Protein [Mass/Vol] 6.6 g/dL 6.3 - 8.0 g/dL [facility] Sodium [Moles/Vol] 138 mmol/L 136 - 144 mmol/L [facility] Urea nitrogen [Mass/Vol] 12 mg/dL 9 - 24 mg/dL [facility] Comprehensive metabolic 2000 panelon 09-14-2024 Albumin [Mass/Vol] 3.6 g/dL Low 3.9-4.9 [facility] Comment on above: Order Comment: Speci men Type: BLOOD SPECIMENOrdering Facility: [facility] Address: [address] [place] [address] Performed By: #### 1 9123-9, ####[facility] [id number] [place] [address] [place] ALP [Catalytic activity/Vol] 133 U/L High 38-113 [facility] Comment on above: Order Comment: Speci men Type: BLOOD SPECIMENOrdering Facility: [facility] Address: [address] [place] [address] Performed By: #### 1 9123-9, ####[facility] [id number] [place] [address] [place] ALT [Catalytic activity/Vol] 11 U/L Normal 10-54 [facility] Comment on above: Order Comment: Speci men Type: BLOOD SPECIMENOrdering Facility: [facility] Address: [address] [place] [address] Performed By: #### 1 9123-9, 80139-2 ####[facility]CL[facility] [id number] [place] [address] [place] Anion gap [Moles/Vol] 9 mmol/L Normal 8-15 [facility] Comment on above: Order Comment: Speci men Type: BLOOD SPECIMENOrdering Facility: [facility] Address: [address] [place] [address] Performed By: #### 1 9123-9, 78819-9 ####[facility] [id number] [place] [address] [place] AST [Catalytic activity/Vol] 14 U/L Normal 14-40 [facility] Comment on above: Order Comment: Speci men Type: BLOOD SPECIMENOrdering Facility: [facility] Address: [address] [place] [address] Performed By: #### 1 9123-9, 30495-9 ####[facility] [id number] [place] [address] [place] Bilirubin [Mass/Vol] 0.5 mg/dL Normal 0.2-1.3 [facility] Comment on above: Order Comment: Speci men Type: BLOOD SPECIMENOrdering Facility: [facility] Address: [address] [place], [place] [address] Performed By: #### 1 9123-9, 20643-3 ####[facility] [id number] [place] [address] [place] Calcium [Mass/Vol] 8.9 mg/dL Normal 8.5-10.2 [facility] Comment on above: Order Comment: Speci men Type: BLOOD SPECIMENOrdering Facility: [facility] Address: [address] [place] [address] Performed By: #### 1 9123-9, 13081-1 ####[facility] TEDDYBAYARDGIANNACARLO [id number] [place] [address] [place] Chloride [Moles/Vol] 102 mmol/L Normal 98-107 [facility] Comment on above: Order Comment: Speci men Type: BLOOD SPECIMENOrdering Facility: [facility] Address: [address] [place] [address] Performed By: #### 1 9123-9, 44555-4 ####[facility]OSPITALFALGUNI [id number] [place] [address] [place] CO2 [Moles/Vol] 27 mmol/L Normal 22-30 [facility] Comment on above: Order Comment: Speci men Type: BLOOD SPECIMENOrdering Facility: [facility] Address: [address] [place] [address] Performed By: #### 1 9123-9, 22710-2 ####[facility]ITALFALGUNIA [id number] [place] [address] [place] Creatinine [Mass/Vol] 0.74 mg/dL Normal 0.73-1.22 [facility] Comment on above: Order Comment: Speci men Type: BLOOD SPECIMENOrdering Facility: [facility] Address: [address] [place] [address] Performed By: #### 1 9123-9, 87923-4 ####[facility]ITALNCLIA [id number] [place] [address] [place] Creatinine and Glomerular filtration rate.predicted panel (S/P/Bld) 94 mL/min/1.73m??? Normal >=60 [facility] Comment on above: Order Comment: Speci men Type: BLOOD SPECIMENOrdering Facility: [facility] Address: [address] [place] [address] Result Comment: Rod mated Glomerular Filtration Rate (eGFR) is calculated using the 2020 CKD-EPI creatinine equation. This equation utilizes serum creatinine, sex, and age as parameters. The creatinine assay has traceable calibration to isotope dilution-mass spectrometry. Refer to KDIGO guidelines for clinical interpretation. In patients with unstable renal function, e.g. those with acute kidney injury, the eGFR may not accurately reflect actual GFR. Performed By: #### 1 9123-9, 97963-3 ####[facility] [id number] [place] [address] [place] Glucose [Mass/Vol] 179 mg/dL High 74-99 [facility] Comment on above: Order Comment: Willam robles Type: BLOOD SPECIMENOrdering Facility: [facility] Address: [address] [place] [address] Result Comment: The [place] Diabetes Association (ADA) provides guidance for cutoff values for fasting glucose and random glucose. The ADA defines fasting as no caloric intake for at least 8 hours. Fasting plasma glucose results between 100 to 125 mg/dL indicate increased risk for diabetes (prediabetes).Fasting plasma glucose results greater than or equal to 126 mg/dL meet the criteria for diagnosis of diabetes. In the absence of unequivocal hyperglycemia, results should be confirmed by repeat testing. In a patient with classic symptoms of hyperglycemia or hyperglycemic crisis, random plasma glucose results greater than or equal to 200 mg/dL meet the criteria for diagnosis of diabetes.Reference: Standards of Medical Care in Diabetes 2016, [place] [employer]. Diabetes Care. 2016.39(Suppl 1). Performed By: #### 1 9123-9, 98209-5 ####[facility] [id number] [place] [address] [place] Potassium [Moles/Vol] 3.6 mmol/L Low 3.7-5.1 [facility] Comment on above: Order Comment: Willam robles Type: BLOOD SPECIMENOrdering Facility: [facility] Address: [address] [place] [address] Performed By: #### 1 9123-9, 98627-0 ####[facility] MILLWNCLIA [id number] [place] [address] [place] Protein [Mass/Vol] 6.6 g/dL Normal 6.3-8.0 [facility] Comment on above: Order Comment: Speci men Type: BLOOD SPECIMENOrdering Facility: [facility] Address: [address] [place] [address] Performed By: #### 1 9123-9, 12198-4 ####[facility] NORTHLIA [id number] [place] [address] [place] Sodium [Moles/Vol] 138 mmol/L Normal 136-144 [facility] Comment on above: Order Comment: Speci men Type: BLOOD SPECIMENOrdering Facility: [facility] Address: [address] [place] [address] Performed By: #### 1 9123-9, 94095-7 ####[facility] [id number] [place] [address] [place] Urea nitrogen [Mass/Vol] 12 mg/dL Normal 9-24 [facility] Comment on above: Order Comment: Speci men Type: BLOOD SPECIMENOrdering Facility: [facility] Address: [address] [place] [address] Performed By: #### 1 9123-9, ####[facility] [id number] [place] [address] [place] MAGNESIUMon 09-14-2024 Magnesium [Mass/Vol] 1.6 mg/dL Low 1.7 - 2 .3 mg/dL [facility] Magnesium SerPl-mCncon 09-14 Magnesium [Mass/Vol] 1.6 mg/dL Low 1.7-2.3 [facility] Comment on above: Order Comment: Speci men Type: BLOOD SPECIMENOrdering Facility: [facility] Address: [address] [place] [address] [place] [address] Performed By: #### 1 9123-9, 48618-4 ####[facility] [id number] [place] [id number] [place] [address] [facility] No Panel InformationOrdered By: Mady Cabello on 09-14-2024 Interpretation and review of laboratory results Abnormal [facility] CBC W Auto Differential pane l (Bld)on 08-31-2024 Anisocytosis Ql (Bld) Present [facility] Basophils (Bld) [#/Vol] 0 10*3/uL NINF [facility] Basophils/100 WBC (Bld) 0 % [facility] Dacrocytes LM Ql (Bld) Few [facility] Differential cell count method Nom (Bld) Manual [facility] Eosinophils (Bld) [#/Vol] 0.04 10*3/uL [facility] Eosinophils/100 WBC (Bld) 1 % [facility] Erythrocyte distribution width (RBC) [Ratio] 21.5 % High 11.5 - 15.0 % [facility] Hematocrit (Bld) [Volume fraction] 30.2 % Low 39.0 - 51.0 % [facility] Hemoglobin (Bld) [Mass/Vol] 9 g/dL Low 13.0 - 17.0 g/dL [facility] Interpretation and review of laboratory results Abnormal [facility] Lymphocytes (Bld) [#/Vol] 1.01 10*3/uL [facility] Lymphocytes/100 WBC (Bld) 25 % [facility] MCH (RBC) [Entitic mass] 28.5 pg 26.0 - 34.0 pg [facility] MCHC (RBC) [Mass/Vol] 29.8 g/dL Low 30.5 - 36.0 g/dL [facility] MCV (RBC) [Entitic vol] 95.6 fL 80.0 - 100.0 fL [facility] [place]ner % 1 % [facility] Monocytes (Bld) [#/Vol] 0.32 10*3/uL NINF [facility] Monocytes/100 WBC (Bld) 8 % [facility] Myelo % 2 % [facility] Neutrophils (Bld) [#/Vol] 2.55 10*3/uL [facility] Neutrophils/100 WBC (Bld) 63 % [facility] Nucleated RBC (Bld) [#/Vol] 0.08 10*3/uL High NINF [facility] Nucleated RBC/100 WBC (Bld) [Ratio] 2 % /100 WBC [facility] Ovalocytes LM Ql (Bld) Few [facility] Platelet mean volume (Bld) [Entitic vol] 9.5 fL 9.0 - 12.7 fL [facility] Platelets (Bld) [#/Vol] 137 10*3/uL Low [facility] Platelets Estimate (Bld) [#/Vol] Decreased [facility] Polychromasia LM Ql (Bld) Slight [facility] RBC (Bld) [#/Vol] 3.16 10*6/uL Low 4.20 - 6.0 0 m/uL [facility] Red Cell Morph Reviewed: see result s of individual morphologies [facility] WBC (Bld) [#/Vol] 4.04 10*3/uL [facility] WBC Left Shift Ql (Bld) Present [facility] This is an appended report. These results have been appended to a previously verified report. [facility] Anisocytosis Ql (Bld) Present Normal [facility] Comment on above: Order Comment: Speci men Type: BLOOD SPECIMENOrdering Facility: [facility] Address: [address] [place] [address] Performed By: #### 5 7021-8 ####[facility] [id number] [address] LABORATORYCLIA [id number] [address] Basophils (Bld) [#/Vol] 0.00 10*3/uL Normal <0.11 [facility] Comment on above: Order Comment: Speci men Type: BLOOD SPECIMENOrdering Facility: [facility] Address: [address] [place] [address] Performed By: #### 5 7021-8 ####[facility] [id number] [address] LABORATORYCLIA [id number] [place] [address] [place] Basophils/100 WBC (Bld) 0.0 % Normal [facility] Comment on above: Order Comment: Speci men Type: BLOOD SPECIMENOrdering Facility: [facility] Address: [address] [place] [address] Performed By: #### 5 7021-8 ####[facility] MILLTOWNCLIA [id number] [address] LABORATORYCLIA [id number] [place] [address] [place] Dacrocytes LM Ql (Bld) Few Normal [facility] Comment on above: Order Comment: Speci men Type: BLOOD SPECIMENOrdering Facility: [facility] Address: [address] [place] [address] Performed By: #### 5 7021-8 ####[facility] MILLWNCLIA [id number] [address] LABORATORYCLIA [id number] [place] [address] [place] Differential cell count method Nom (Bld) Manual Normal [facility] Comment on above: Order Comment: Speci men Type: BLOOD SPECIMENOrdering Facility: [facility] Address: [address] [place] [address] Performed By: #### 5 7021-8 ####[facility]ENWNCL[facility] [id number] [address] LABORATORYCLIA [id number] [place] [address] [place] Eosinophils (Bld) [#/Vol] 0.04 10*3/uL Normal <0.46 [facility] Comment on above: Order Comment: Speci men Type: BLOOD SPECIMENOrdering Facility: [facility] Address: [address] [place] [address] Performed By: #### 5 7021-8 ####[facility] MILLTOWNCLIA [id number] [address] LABORATORYCLIA [id number] [place] [address] [place] Eosinophils/100 WBC (Bld) 1.0 % Normal [facility] Comment on above: Order Comment: Speci men Type: BLOOD SPECIMENOrdering Facility: [facility] Address: [address] [place] [address] Performed By: #### 5 7021-8 ####[facility] MILLTOWNCLIA [id number] [address] LABORATORYCLIA [id number] [place] [address] [place] Erythrocyte distribution width (RBC) [Ratio] 21.5 % High 11.5-15.0 [facility] Comment on above: Order Comment: Speci men Type: BLOOD SPECIMENOrdering Facility: [facility] Address: [address] [place] [address] Performed By: #### 5 7021-8 ####[facility]ITALTOWNCLIA [id number] [address] LABORATORYCLIA [id number] [place] [address] [place] Hematocrit (Bld) [Volume fraction] 30.2 % Low 39.0-51.0 [facility] Comment on above: Order Comment: Speci men Type: BLOOD SPECIMENOrdering Facility: [facility] Address: [address] [place] [id number] Performed By: #### 5 7021-8 ####[facility] MILLTOWNCLIA [id number] [address] LABORATORYCLIA [id number] [place] [address] [place] Hemoglobin (Bld) [Mass/Vol] 9.0 g/dL Low 13.0-17.0 [facility] Comment on above: Order Comment: Speci men Type: BLOOD SPECIMENOrdering Facility: [facility] Address: [address] [place] [address] Performed By: #### 5 7021-8 ####[facility] MILLTOWNCLIA [id number] [address] LABORATORYCLIA [id number] [place] [address] [place] Lymphocytes (Bld) [#/Vol] 1.01 10*3/uL Normal 1.00-4.00 [facility] Comment on above: Order Comment: Speci men Type: BLOOD SPECIMENOrdering Facility: [facility] Address: [address] [place] [address] Performed By: #### 5 7021-8 ####[facility] HOSPITALTOWNCLIA [id number] [address] LABORATORYCLIA [id number] [address] STATES OF [facility] Lymphocytes/100 WBC (Bld) 25.0 % Normal [facility] Comment on above: Order Comment: Speci men Type: BLOOD SPECIMENOrdering Facility: [facility] Address: [address] [place] [address] Performed By: #### 5 7021-8 ####[facility] H[facility]PITALTOWNCLIA [id number] [address] LABORATORYCLIA [id number] [place] [address] [place] MCH (RBC) [Entitic mass] 28.5 pg Normal 26.0-34.0 [facility] Comment on above: Order Comment: Speci men Type: BLOOD SPECIMENOrdering Facility: [facility] Address: [address] [place] [address] Performed By: #### 5 7021-8 ####[facility] TEDDYTOWNCLIA [id number] [address] LABORATORYCLIA [id number] [place] [address] [place] MCHC (RBC) [Mass/Vol] 29.8 g/dL Low 30.5-36.0 [facility] Comment on above: Order Comment: Speci men Type: BLOOD SPECIMENOrdering Facility: [facility] Address: [address] [place] [address] Performed By: #### 5 7021-8 ####[facility]ITALNCLIA [id number] [address] LABORATORYCLIA [id number] [place] [address] [place] MCV (RBC) [Entitic vol] 95.6 fL Normal 80.0-100.0 [facility] Comment on above: Order Comment: Speci men Type: BLOOD SPECIMENOrdering Facility: [facility] Address: [address] [place] [address] Performed By: #### 5 7021-8 ####[facility]ENWNCLIA [id number] [address] LABORATORYCLIA [id number] [address] STATES [facility] Metamyelocytes/100 WBC (Bld) 1.0 % Normal [facility] Comment on above: Order Comment: Speci men Type: BLOOD SPECIMENOrdering Facility: [facility] Address: [address] [place] [address] Performed By: #### 5 7021-8 ####[facility]ENWNCL[facility] [id number] [address] LABORATORYCLIA [id number] [place] [address] [place] Monocytes (Bld) [#/Vol] 0.32 10*3/uL Normal <0.87 [facility] Comment on above: Order Comment: Speci men Type: BLOOD SPECIMENOrdering Facility: [facility] Address: [address] [place] [address] Performed By: #### 5 7021-8 ####[facility] MILLWNCLIA [id number] [address] LABORATORYCLIA [id number] [place] [address] [place] Monocytes/100 WBC (Bld) 8.0 % Normal [facility] Comment on above: Order Comment: Speci men Type: BLOOD SPECIMENOrdering Facility: [facility] Address: [address] [place] [address] Performed By: #### 5 7021-8 ####[facility] NORTHLIA [id number] [address] LABORATORYCLIA [id number] [place] [address] [place] MYELO% 2.0 % Normal [facility] Comment on above: Order Comment: Speci men Type: BLOOD SPECIMENOrdering Facility: [facility] Address: [address] [place] [address] Performed By: #### 5 7021-8 ####[facility] NOR[facility] [id number] [address] LABORATORYCLIA [id number] [place] [address] [place] Neutrophils (Bld) [#/Vol] 2.55 10*3/uL Normal 1.45-7.50 [facility] Comment on above: Order Comment: Speci men Type: BLOOD SPECIMENOrdering Facility: [facility] Address: [address] [place] [address] Performed By: #### 5 7021-8 ####[facility] TEDDYTOWNCLIA [id number] [address] LABORATORYCLIA [id number] [place] [address] [place] Neutrophils/100 WBC (Bld) 63.0 % Normal [facility] Comment on above: Order Comment: Speci men Type: BLOOD SPECIMENOrdering Facility: [facility] Address: [address] [place] [address] Performed By: #### 5 7021-8 ####[facility]ENWNCLIA [id number] [address] LABORATORYCLIA [id number] [place] [address] [place] Nucleated RBC (Bld) [#/Vol] 0.08 10*3/uL High <0.01 [facility] Comment on above: Order Comment: Speci men Type: BLOOD SPECIMENOrdering Facility: [facility] Address: [address] [place] [address] Performed By: #### 5 7021-8 ####[facility]ENWNCL[facility] [id number] [address] LABORATORYCLIA [id number] [place] [address] [place] Nucleated RBC/100 WBC (Bld) [Ratio] 2.0 /100 WBC Normal [facility] Comment on above: Order Comment: Speci men Type: BLOOD SPECIMENOrdering Facility: [facility] Address: [address] [place] [address] Performed By: #### 5 7021-8 ####[facility]ITALNCLIA [id number] [address] LABORATORYCLIA [id number] [place] [address] [place] Ovalocytes LM Ql (Bld) Few Normal [facility] Comment on above: Order Comment: Speci men Type: BLOOD SPECIMENOrdering Facility: [facility] Address: [address] [place] [address] Performed By: #### 5 7021-8 ####[facility]CL[facility] [id number] [address] LABORATORYCLIA [id number] [place] [address] [place] Platelet mean volume (Bld) [Entitic vol] 9.5 fL Normal 9.0-12.7 [facility] Comment on above: Order Comment: Speci men Type: BLOOD SPECIMENOrdering Facility: [facility] [facility] Address: [address] [place] [address] Performed By: #### 5 7021-8 ####[facility]ITALNCLIA [id number] [address] LABORATORYCLIA [id number] [place] [address] [place] Platelets (Bld) [#/Vol] 137 10*3/uL Low 150-400 [facility] Comment on above: Order Comment: Speci men Type: BLOOD SPECIMENOrdering Facility: [facility] Address: [address] [place] [address] Performed By: #### 5 7021-8 ####[facility]ENWNCLIA [id number] [address] LABORATORYCLIA [id number] [place] [address] [place] Platelets Estimate (Bld) [#/Vol] Decreased Normal [facility] Comment on above: Order Comment: Speci men Type: BLOOD SPECIMENOrdering Facility: [facility] Address: [address] [place] [address] Performed By: #### 5 7021-8 ####[facility] MILLTOWNCLIA [id number] [address] LABORATORYCLIA [id number] [place] [address] [place] Polychromasia LM Ql (Bld) Slight Normal [facility] Comment on above: Order Comment: Speci men Type: BLOOD SPECIMENOrdering Facility: [facility] Address: [address] [place] [address] Performed By: #### 5 7021-8 ####[facility] MILLWNCLIA [id number] [address] LABORATORYCLIA [id number] [place] [address] [place] RBC (Bld) [#/Vol] 3.16 10*6/uL Low 4.20-6.00 [facility] Comment on above: Order Comment: Speci men Type: BLOOD SPECIMENOrdering Facility: [facility] Address: [address] [place] [address] Performed By: #### 5 7021-8 ####[facility] MILLTOWNCLIA [id number] [address] LABORATORYCLIA [id number] [place] [address] [place] RED CELL MORPH Reviewed: see result s of individual morphologies Normal [facility] Comment on above: Order Comment: Speci men Type: BLOOD SPECIMENOrdering Facility: [facility] Address: [address] [place] [address] Performed By: #### 5 7021-8 ####[facility] MILLTOWNCLIA [id number] [address] LABORATORYCLIA [id number] [place] [address] [place] WBC (Bld) [#/Vol] 4.04 10*3/uL Normal 3.70-11.00 [facility] Comment on above: Order Comment: Speci men Type: BLOOD SPECIMENOrdering Facility: [facility] Address: [address] [place] [address] Performed By: #### 5 7021-8 ####[facility]A [id number] [address] LABORATORYCLIA [id number] [place] [address] [place] WBC Left Shift Ql (Bld) Present Normal [facility] Comment on above: Order Comment: Speci men Type: BLOOD SPECIMENOrdering Facility: [facility] Address: [address] [place] [address] Performed By: #### 5 7021-8 ####[facility] [id number] [address] LABORATORYCLIA [id number] [place] [address] [place] [facility] 08-31-2024 Carcinoembryonic Ag [Mass/Vol] 21.0 ng/mL High <=2.9 [facility] Comment on above: Order Comment: Speci men Type: BLOOD SPECIMENOrdering Facility: [facility] Address: [address] [place] [address] Result Comment: Carc inoembryonic antigen test is used as an aid in monitoring response to treatment or recurrence in patients with established colorectal, breast, lung, prostatic, pancreatic, and ovarian carcinomas. Clinical correlation is required.The Carcinoembryonic antigen test was performed using the [employer] DXI paramagnetic particle chemiluminescent immunoassay method. Results obtained with different assay methods or kits cannot be used interchangeably. Performed By: #### 2 039-6 ####[facility] LABCLIA [id number] [place] [address] [place] Comprehensive metabolic 2000 panelOrdered By: Cody Hurtado on 08-31-2024 Albumin [Mass/Vol] 3.5 g/dL Low 3.9 - 4.9 g/dL [facility] ALP [Catalytic activity/Vol] 110 U/L 38 - 113 U/L [facility] ALT [Catalytic activity/Vol] 9 U/L Low 10 - 54 U/L [facility] Anion gap [Moles/Vol] 8 mmol/L 8 - 15 mmol/L [facility] AST [Catalytic activity/Vol] 12 U/L Low 14 - 40 U/L [facility] Bilirubin [Mass/Vol] 0.4 mg/dL 0.2 - 1 .3 mg/dL [facility] Calcium [Mass/Vol] 8.8 mg/dL 8.5 - 10. 2 mg/dL [facility] Chloride [Moles/Vol] 101 mmol/L 98 - 10 7 mmol/L [facility] CO2 [Moles/Vol] 28 mmol/L 22 - 30 mmol/L [facility] Creatinine [Mass/Vol] 0.67 mg/dL Low 0.73 - 1.22 mg/dL [facility] GFR/1.73 sq M.predicted among non-blacks MDRD (S/P/Bld) [Vol rate/Area] 97 mL/min/{1.73_m2} - PINF [facility] Comment on above: Estimated Glomerular Filtration Rate (eGFR) is calculated using the 2020 CKD-EPI creatinine equation. This equation utilizes serum creatinine, sex, and age as parameters. The creatinine assay has traceable calibration to isotope dilution-mass spectrometry. Refer to KDIGO guidelines for clinical interpretation. In patients with unstable renal function, e.g. those with acute kidney injury, the eGFR may not accurately reflect actual GFR. Glucose [Mass/Vol] 188 mg/dL High 74 - 99 mg/dL [facility] Comment on above: The [place] Di[employer] [place] Association (ADA) provides guidance for cutoff values for fasting glucose and random glucose. The ADA defines fasting as no caloric intake for at least 8 hours. Fasting plasma glucose results between 100 to 125 mg/dL indicate increased risk for diabetes (prediabetes). Fasting plasma glucose results greater than or equal to 126 mg/dL meet the criteria for diagnosis of diabetes. In the absence of unequivocal hyperglycemia, results should be confirmed by repeat testing. In a patient with classic symptoms of hyperglycemia or hyperglycemic crisis, random plasma glucose results greater than or equal to 200 mg/dL meet the criteria for diagnosis of diabetes. Reference: Standards of Medical Care in Diabetes 2016, [place] [employer]. Diabetes Care. 2016.39(Suppl 1). Potassium [Moles/Vol] 3.5 mmol/L Low 3.7 - 5.1 mmol/L [facility] Protein [Mass/Vol] 6.6 g/dL 6.3 - 8.0 g/dL [facility] Sodium [Moles/Vol] 137 mmol/L 136 - 144 mmol/L [facility] Urea nitrogen [Mass/Vol] 15 mg/dL 9 - 24 mg/dL [facility] Comprehensive metabolic 2000 panelon 08-31-2024 Albumin [Mass/Vol] 3.5 g/dL Low 3.9-4.9 [facility] Comment on above: Order Comment: Speci men Type: BLOOD SPECIMENOrdering Facility: [facility] Address: [address] [place] [address] Performed By: #### 1 9123-9, 96271-6 ####[facility] [id number] [place] [address] [place] ALP [Catalytic activity/Vol] 110 U/L Normal 38-113 [facility] Comment on above: Order Comment: Speci men Type: BLOOD SPECIMENOrdering Facility: [facility] Address: [address] [place] [address] Performed By: #### 1 9123-9, 44858-2 ####[facility] [id number] [place] [address] [place] ALT [Catalytic activity/Vol] 9 U/L Low 10-54 [facility] Comment on above: Order Comment: Speci men Type: BLOOD SPECIMENOrdering Facility: [facility] Address: [address] [place] [address] Performed By: #### 1 9123-9, 38214-5 ####[facility]U MILLTOWNCLIA [id number] [place] [address] [place] Anion gap [Moles/Vol] 8 mmol/L Normal 8-15 [facility] Comment on above: Order Comment: Speci men Type: BLOOD SPECIMENOrdering Facility: [facility] Address: [address] [place] [address] Performed By: #### 1 9123-9, 43497-8 ####[facility] MILLTOWNCLIA [id number] [place] [address] [place] AST [Catalytic activity/Vol] 12 U/L Low 14-40 [facility] Comment on above: Order Comment: Speci men Type: BLOOD SPECIMENOrdering Facility: [facility] Address: [address] [place] [address] Performed By: #### 1 9123-9, 21327-2 ####[facility] MILLTOWNCLIA [id number] [place] [address] [place] Bilirubin [Mass/Vol] 0.4 mg/dL Normal 0.2-1.3 [facility] Comment on above: Order Comment: Speci men Type: BLOOD SPECIMENOrdering Facility: [facility] Address: [address] [place], [place] [address] Performed By: #### 1 9123-9, ####[facility] MILLTOWNCLIA [id number] [place] [address] [place] Calcium [Mass/Vol] 8.8 mg/dL Normal 8.5-10.2 [facility] Comment on above: Order Comment: Speci men Type: BLOOD SPECIMENOrdering Facility: [facility] Address: [address] [place], [place] [address] Performed By: #### 1 9123-9, 38814-2 ####[facility]ENWNCLIA [id number] [place] [address] [place] Chloride [Moles/Vol] 101 mmol/L Normal 98-107 [facility] Comment on above: Order Comment: Speci men Type: BLOOD SPECIMENOrdering Facility: [facility] Address: [address] [place] [address] Performed By: #### 1 9123-9, 43073-9 ####[facility] [id number] [place] [address] [place] CO2 [Moles/Vol] 28 mmol/L Normal 22-30 [facility] Comment on above: Order Comment: Speci men Type: BLOOD SPECIMENOrdering Facility: [facility] Address: [address] [place] [address] Performed By: #### 1 9123-9, 31169-6 ####[facility] [id number] [place] [address] [place] Creatinine [Mass/Vol] 0.67 mg/dL Low 0.73-1.22 [facility] Comment on above: Order Comment: Speci men Type: BLOOD SPECIMENOrdering Facility: [facility] Address: [address] [place] [address] Performed By: #### 1 9123-9, 27036-9 ####[facility]A [id number] [place] [address] [facility] [place] Creatinine and Glomerular filtration rate.predicted panel (S/P/Bld) 97 mL/min/1.73m??? Normal >=60 [facility] Comment on above: Order Comment: Speci men Type: BLOOD SPECIMENOrdering Facility: [facility] Address: [address] [place] [address] Result Comment: Rod mated Glomerular Filtration Rate (eGFR) is calculated using the 2020 CKD-EPI creatinine equation. This equation utilizes serum creatinine, sex, and age as parameters. The creatinine assay has traceable calibration to isotope dilution-mass spectrometry. Refer to KDIGO guidelines for clinical interpretation. In patients with unstable renal function, e.g. those with acute kidney injury, the eGFR may not accurately reflect actual GFR. Performed By: #### 1 9123-9, ####[facility] CLAU TEDDYCELINCLIMckenna [id number] [place] [address] [place] Glucose [Mass/Vol] 188 mg/dL High 74-99 [facility] Comment on above: Order Comment: Willma robles Type: BLOOD SPECIMENOrdering Facility: [facility] Address: [address] [place] [address] Result Comment: The [place] Diabetes Association (ADA) provides guidance for cutoff values for fasting glucose and random glucose. The ADA defines fasting as no caloric intake for at least 8 hours. Fasting plasma glucose results between 100 to 125 mg/dL indicate increased risk for diabetes (prediabetes).Fasting plasma glucose results greater than or equal to 126 mg/dL meet the criteria for diagnosis of diabetes. In the absence of unequivocal hyperglycemia, results should be confirmed by repeat testing. In a patient with classic symptoms of hyperglycemia or hyperglycemic crisis, random plasma glucose results greater than or equal to 200 mg/dL meet the criteria for diagnosis of diabetes.Reference: Standards of Medical Care in Diabetes 2016, [place] [employer]. Diabetes Care. 2016.39(Suppl 1). Performed By: #### 1 9123-9, ####[facility]PITALNCLIA [id number] [place] [address] [place] Potassium [Moles/Vol] 3.5 mmol/L Low 3.7-5.1 [facility] Comment on above: Order Comment: Willam robles Type: BLOOD SPECIMENOrdering Facility: [facility] Address: [address] [place] [address] Performed By: #### 1 9123-9, ####[facility] HOSPITALNCLIA [id number] [place] [address] [place] Protein [Mass/Vol] 6.6 g/dL Normal 6.3-8.0 [facility] Comment on above: Order Comment: Speci men Type: BLOOD SPECIMENOrdering Facility: [facility] Address: [address] [place] [address] Performed By: #### 1 9123-9, 33764-2 ####[facility] MILLTOWNCLIA [id number] [place] [address] [place] Sodium [Moles/Vol] 137 mmol/L Normal 136-144 [facility] Comment on above: Order Comment: Speci men Type: BLOOD SPECIMENOrdering Facility: [facility] Address: [address] [place] [address] Performed By: #### 1 9123-9, 25684-6 ####[facility]ITALNCLIA [id number] [place] [address] [place] Urea nitrogen [Mass/Vol] 15 mg/dL Normal 9-24 [facility] Comment on above: Order Comment: Speci men Type: BLOOD SPECIMENOrdering Facility: [facility] Address: [address] [place] [address] Performed By: #### 1 9123-9, ####[facility] MILLBAYARDNCLIA [id number] [place] [address] [place] MAGNESIUMon 08-31-2024 Magnesium [Mass/Vol] 1.6 mg/dL Low 1.7 - 2 .3 mg/dL [facility] Magnesium SerPl-mCncon 08-31 Magnesium [Mass/Vol] 1.6 mg/dL Low 1.7-2.3 [facility] Comment on above: Order Comment: Speci men Type: BLOOD SPECIMENOrdering Facility: [facility] Address: [address] [place] [address] Performed By: #### 1 9123-9, 21411-1 ####[facility] MILLTOWNCLIA [id number] [place] [address] [place] No Panel Informationon 08-31 Interpretation and review of laboratory results Abnormal [facility] UA DIP, URINE (POC)on 2024 BILIRUBIN UA (POCT) Negative Negative [facility] CLARITY UA (POCT) Clear [facility] COLOR UA (POCT) Yellow [facility] GLUCOSE UA (POCT) 500 mg/dL Abnormal Negative [facility] Hemoglobin Ql (U) Negative Negative [facility] Interpretation and review of laboratory results Abnormal [facility] KETONE UA (POCT) Negative Negative mg/dL [facility] LEUKOCYTES UA (POCT) Negative Negative [facility] NITRITE UA (POCT) Negative Negative [facility] PH UA (POCT) 6 4.5 - 8.0 [facility] Protein Ql (U) Negative Negative mg/dL [facility] SPECIFIC GRAVITY UA (POCT) 1.01 1.005 - 1.030 [facility] UROBILINOGEN UA (POCT) 1 Normal E.U./dL [facility] Location:[facility], [address], [place], [place], [id number] [place] [address] POINT OF CARE [facility] CBC W Auto Differential pane l (Bld)on 08-17-2024 Basophils (Bld) [#/Vol] [facility] Basophils/100 WBC (Bld) 0.8 % [facility] Differential cell count method Nom (Bld) Auto [facility] Eosinophils (Bld) [#/Vol] 0.1 10*3/uL [facility] Eosinophils/100 WBC (Bld) 3.8 % [facility] Erythrocyte distribution width (RBC) [Ratio] 22.1 % High 11.5 - 15.0 % [facility] Hematocrit (Bld) [Volume fraction] 29.9 % Low 39.0 - 51.0 % [facility] Hemoglobin (Bld) [Mass/Vol] 8.9 g/dL Low 13.0 - 17.0 g/dL [facility] Immature granulocytes (Bld) [#/Vol] [facility] Immature granulocytes/100 WBC (Bld) 0.8 % [facility] Interpretation and review of laboratory results Abnormal [facility] Lymphocytes (Bld) [#/Vol] 0.64 10*3/uL Low [facility] Lymphocytes/100 WBC (Bld) 24.4 % [facility] MCH (RBC) [Entitic mass] 29.2 pg 26.0 - 34.0 pg [facility] MCHC (RBC) [Mass/Vol] 29.8 g/dL Low 30.5 - 36.0 g/dL [facility] MCV (RBC) [Entitic vol] 98 fL 80.0 - 100.0 fL [facility] Monocytes (Bld) [#/Vol] 0.37 10*3/uL [facility] Monocytes/100 WBC (Bld) 14.1 % [facility] Neutrophils (Bld) [#/Vol] 1.47 10*3/uL [facility] Neutrophils/100 WBC (Bld) 56.1 % [facility] Nucleated RBC (Bld) [#/Vol] [facility] Nucleated RBC/100 WBC (Bld) [Ratio] 0 % /100 WBC [facility] Platelet mean volume (Bld) [Entitic vol] 9.6 fL 9.0 - 12.7 fL [facility] Platelets (Bld) [#/Vol] 127 10*3/uL Low [facility] RBC (Bld) [#/Vol] 3.05 10*6/uL Low 4.20 - 6.0 0 m/uL [facility] WBC (Bld) [#/Vol] 2.62 10*3/uL Low [facility] Basophils (Bld) [#/Vol] 10*3/uL Normal <0.11 [facility] Comment on above: Order Comment: Speci men Type: BLOOD SPECIMENOrdering Facility: [facility] Address: [address] [place] [address] Performed By: #### 5 7021-8 ####[facility] [id number] [address] [place] Basophils/100 WBC (Bld) 0.8 % Normal [facility] Comment on above: Order Comment: Speci men Type: BLOOD SPECIMENOrdering Facility: [facility] Address: [address] [place] [address] Performed By: #### 5 7021-8 ####[facility] HOSPITALNCLIA [id number] [place] [address] [place] Differential cell count method Nom (Bld) Auto Normal [facility] Comment on above: Order Comment: Speci men Type: BLOOD SPECIMENOrdering Facility: [facility] Address: [address] [place] [address] Performed By: #### 5 7021-8 ####[facility]ITALGIANNALAYTON [facility] [id number] [place] [address] [place] Eosinophils (Bld) [#/Vol] 0.10 10*3/uL Normal <0.46 [facility] Comment on above: Order Comment: Speci men Type: BLOOD SPECIMENOrdering Facility: [facility] Address: [address] [place] [address] Performed By: #### 5 7021-8 ####[facility] [id number] [place] [address] [place] Eosinophils/100 WBC (Bld) 3.8 % Normal [facility] Comment on above: Order Comment: Speci men Type: BLOOD SPECIMENOrdering Facility: [facility] Address: [address] [place] [address] Performed By: #### 5 7021-8 ####[facility]ITALNCL[facility] [id number] [place] [address] [place] Erythrocyte distribution width (RBC) [Ratio] 22.1 % High 11.5-15.0 [facility] Comment on above: Order Comment: Speci men Type: BLOOD SPECIMENOrdering Facility: [facility] Address: [address] [place] [address] Performed By: #### 5 7021-8 ####[facility]OSPITALNCLIA [id number] [place] [address] [place] Hematocrit (Bld) [Volume fraction] 29.9 % Low 39.0-51.0 [facility] Comment on above: Order Comment: Speci men Type: BLOOD SPECIMENOrdering Facility: [facility] Address: [address] [place] [address] Performed By: #### 5 7021-8 ####[facility]ITALNCL[facility] [id number] [place] [address] [place] Hemoglobin (Bld) [Mass/Vol] 8.9 g/dL Low 13.0-17.0 [facility] Comment on above: Order Comment: Speci men Type: BLOOD SPECIMENOrdering Facility: [facility] Address: [address] [place] [address] Performed By: #### 5 7021-8 ####[facility] [id number] [place] [address] [place] Immature granulocytes (Bld) [#/Vol] 10*3/uL Normal <0.10 [facility] Comment on above: Order Comment: Speci men Type: BLOOD SPECIMENOrdering Facility: [facility] Address: [address] [place] [address] Performed By: #### 5 7021-8 ####[facility] [id number] [place] [address] [place] Immature granulocytes/100 WBC (Bld) 0.8 % Normal [facility] Comment on above: Order Comment: Speci men Type: BLOOD SPECIMENOrdering Facility: [facility] Address: [address] [place] [address] Performed By: #### 5 7021-8 ####[facility] [id number] [place] [address] [place] Lymphocytes (Bld) [#/Vol] 0.64 10*3/uL Low 1.00-4.00 [facility] Comment on above: Order Comment: Speci men Type: BLOOD SPECIMENOrdering Facility: [facility] Address: [address] [place] [address] Performed By: #### 5 7021-8 ####[facility]PITALNCCARLO [id number] [place] [address] [place] Lymphocytes/100 WBC (Bld) 24.4 % Normal [facility] Comment on above: Order Comment: Speci men Type: BLOOD SPECIMENOrdering Facility: [facility] Address: [address] [place] [address] Performed By: #### 5 7021-8 ####[facility]ITALNCL[facility] [id number] [place] [address] [place] MCH (RBC) [Entitic mass] 29.2 pg Normal 26.0-34.0 [facility] Comment on above: Order Comment: Speci men Type: BLOOD SPECIMENOrdering Facility: [facility] Address: [address] [place] [address] Performed By: #### 5 7021-8 ####[facility] [id number] [place] [address] [place] MCHC (RBC) [Mass/Vol] 29.8 g/dL Low 30.5-36.0 [facility] Comment on above: Order Comment: Speci men Type: BLOOD SPECIMENOrdering Facility: [facility] Address: [address] [place] [address] Performed By: #### 5 7021-8 ####[facility]PITALNCLIA [id number] [place] [address] [place] MCV (RBC) [Entitic vol] 98.0 fL Normal 80.0-100.0 [facility] Comment on above: Order Comment: Speci men Type: BLOOD SPECIMENOrdering Facility: [facility] Address: [address] [place] [address] Performed By: #### 5 7021-8 ####[facility] GARDENWNCLIA [id number] [place] [address] [place] Monocytes (Bld) [#/Vol] 0.37 10*3/uL Normal <0.87 [facility] Comment on above: Order Comment: Speci men Type: BLOOD SPECIMENOrdering Facility: [facility] Address: [address] [place] [address] Performed By: #### 5 7021-8 ####[facility] NORTHLIA [id number] [place] [address] [place] Monocytes/100 WBC (Bld) 14.1 % Normal [facility] Comment on above: Order Comment: Speci men Type: BLOOD SPECIMENOrdering Facility: [facility] Address: [address] [place] [address] Performed By: #### 5 7021-8 ####[facility] [id number] [place] [address] [place] Neutrophils (Bld) [#/Vol] 1.47 10*3/uL Normal 1.45-7.50 [facility] Comment on above: Order Comment: Speci men Type: BLOOD SPECIMENOrdering Facility: [facility] [facility] Address: [address] [place] [address] Performed By: #### 5 7021-8 ####[facility] [id number] [place] [address] [place] Neutrophils/100 WBC (Bld) 56.1 % Normal [facility] Comment on above: Order Comment: Speci men Type: BLOOD SPECIMENOrdering Facility: [facility] Address: [address] [place] [address] Performed By: #### 5 7021-8 ####[facility] [id number] [place] [address] [place] Nucleated RBC (Bld) [#/Vol] 10*3/uL Normal <0.01 [facility] Comment on above: Order Comment: Speci men Type: BLOOD SPECIMENOrdering Facility: [facility] Address: [address] [place] [address] Performed By: #### 5 7021-8 ####[facility] [id number] [place] [address] [place] Nucleated RBC/100 WBC (Bld) [Ratio] 0.0 /100 WBC Normal [facility] Comment on above: Order Comment: Speci men Type: BLOOD SPECIMENOrdering Facility: [facility] Address: [address] [place] [address] Performed By: #### 5 7021-8 ####[facility] [id number] [place] [address] [place] Platelet mean volume (Bld) [Entitic vol] 9.6 fL Normal 9.0-12.7 [facility] Comment on above: Order Comment: Speci men Type: BLOOD SPECIMENOrdering Facility: [facility] Address: [address] [place] [address] Performed By: #### 5 7021-8 ####[facility] [id number] [place] [address] [place] Platelets (Bld) [#/Vol] 127 10*3/uL Low 150-400 [facility] Comment on above: Order Comment: Speci men Type: BLOOD SPECIMENOrdering Facility: [facility] Address: [address] [place] [address] Performed By: #### 5 7021-8 ####[facility] [id number] [place] [address] [place] RBC (Bld) [#/Vol] 3.05 10*6/uL Low 4.20-6.00 [facility] Comment on above: Order Comment: Speci men Type: BLOOD SPECIMENOrdering Facility: [facility] Address: [facility] [place] [id number] Performed By: #### 5 7021-8 ####[facility] [id number] [place] [address] [place] WBC (Bld) [#/Vol] 2.62 10*3/uL Low 3.70-11.00 [facility] Comment on above: Order Comment: Speci men Type: BLOOD SPECIMENOrdering Facility: [facility] Address: [address] [place] [address] Performed By: #### 5 7021-8 ####[facility] [id number] [place] [address] [place] CNOVSPon 08-17-2024 CNOVSP Normal [facility] metabolic 2000 panelOrdered By: Cody Hurtado on 08-17-2024 Albumin [Mass/Vol] 3.8 g/dL Low 3.9 - 4.9 g/dL [facility] ALP [Catalytic activity/Vol] 103 U/L 38 - 113 U/L [facility] ALT [Catalytic activity/Vol] 10 U/L 10 - 54 U/L [facility] Anion gap [Moles/Vol] 9 mmol/L 8 - 15 mmol/L [facility] AST [Catalytic activity/Vol] 14 U/L 14 - 40 U/L [facility] Bilirubin [Mass/Vol] 0.5 mg/dL 0.2 - 1 .3 mg/dL [facility] Calcium [Mass/Vol] 9 mg/dL 8.5 - 10. 2 mg/dL [facility] Chloride [Moles/Vol] 100 mmol/L 98 - 10 7 mmol/L [facility] CO2 [Moles/Vol] 28 mmol/L 22 - 30 mmol/L [facility] Creatinine [Mass/Vol] 0.74 mg/dL 0.73 - 1.22 mg/dL [facility] GFR/1.73 sq M.predicted among non-blacks MDRD (S/P/Bld) [Vol rate/Area] 94 mL/min/{1.73_m2} - PINF [facility] Comment on above: Estimated Glomerular Filtration Rate (eGFR) is calculated using the 2020 CKD-EPI creatinine equation. This equation utilizes serum creatinine, sex, and age as parameters. The creatinine assay has traceable calibration to isotope dilution-mass spectrometry. Refer to KDIGO guidelines for clinical interpretation. In patients with unstable renal function, e.g. those with acute kidney injury, the eGFR may not accurately reflect actual GFR. Glucose [Mass/Vol] 193 mg/dL High 74 - 99 mg/dL [facility] Comment on above: The [place] Di[employer] Association (ADA) provides guidance for cutoff values for fasting glucose and random glucose. The ADA defines fasting as no caloric intake for at least 8 hours. Fasting plasma glucose results between 100 to 125 mg/dL indicate increased risk for diabetes (prediabetes). Fasting plasma glucose results greater than or equal to 126 mg/dL meet the criteria for diagnosis of diabetes. In the absence of unequivocal hyperglycemia, results should be confirmed by repeat testing. In a patient with classic symptoms of hyperglycemia or hyperglycemic crisis, random plasma glucose results greater than or equal to 200 mg/dL meet the criteria for diagnosis of diabetes. Reference: Standards of Medical Care in Diabetes 2016, [place] [employer]. Diabetes Care. 2016.39(Suppl 1). Interpretation and review of laboratory results Abnormal [facility] Potassium [Moles/Vol] 3.9 mmol/L 3.7 - 5.1 mmol/L [facility] Protein [Mass/Vol] 6.9 g/dL 6.3 - 8.0 g/dL [facility] Sodium [Moles/Vol] 137 mmol/L 136 - 144 mmol/L [facility] Urea nitrogen [Mass/Vol] 12 mg/dL 9 - 24 mg/dL [facility] Comprehensive metabolic 2000 panelon 08-17-2024 Albumin [Mass/Vol] 3.8 g/dL Low 3.9-4.9 [facility] Comment on above: Order Comment: Speci men Type: BLOOD SPECIMENOrdering Facility: [facility] Address: [address] [place] [id number] Performed By: #### 1 9123-9, 97340-3 ####[facility] [id number] [place] [address] [place] ALP [Catalytic activity/Vol] 103 U/L Normal 38-113 [facility] Comment on above: Order Comment: Speci men Type: BLOOD SPECIMENOrdering Facility: [facility] Address: [address] [place] [address] Performed By: #### 1 9123-9, 81025-6 ####[facility]EN[facility]CL[facility] [id number] [place] [address] [place] ALT [Catalytic activity/Vol] 10 U/L Normal 10-54 [facility] Comment on above: Order Comment: Speci men Type: BLOOD SPECIMENOrdering Facility: [facility] Address: [address] [place] [address] Performed By: #### 1 9123-9, 23161-0 ####[facility] [id number] [place] [address] [place] Anion gap [Moles/Vol] 9 mmol/L Normal 8-15 [facility] Comment on above: Order Comment: Speci men Type: BLOOD SPECIMENOrdering Facility: [facility] Address: [address] [place] [address] Performed By: #### 1 9123-9, 11040-9 ####[facility] [id number] [place] [address] [place] AST [Catalytic activity/Vol] 14 U/L Normal 14-40 [facility] Comment on above: Order Comment: Speci men Type: BLOOD SPECIMENOrdering Facility: [facility] Address: [address] [place] [address] Performed By: #### 1 9123-9, 68052-3 ####[facility] [id number] [place] [address] [place] Bilirubin [Mass/Vol] 0.5 mg/dL Normal 0.2-1.3 [facility] Comment on above: Order Comment: Speci men Type: BLOOD SPECIMENOrdering Facility: [facility] Address: [address] [place], [place] [address] Performed By: #### 1 9123-9, 83240-8 ####[facility] TEDDYJEFFERYWGIANNALIA [id number] [place] [address] [place] Calcium [Mass/Vol] 9.0 mg/dL Normal 8.5-10.2 [facility] Comment on above: Order Comment: Speci men Type: BLOOD SPECIMENOrdering Facility: [facility] Address: [address] [place], [place] [address] Performed By: #### 1 9123-9, 07369-2 ####[facility] TEDDYJEFFERYWGIANNALIA [id number] [place] [address] [place] Chloride [Moles/Vol] 100 mmol/L Normal 98-107 [facility] Comment on above: Order Comment: Speci men Type: BLOOD SPECIMENOrdering Facility: [facility] Address: [address] [place], [place] [address] Performed By: #### 1 9123-9, 65313-9 ####[facility] MILLJEFFERYWGIANNALIA [id number] [place] [address] [place] CO2 [Moles/Vol] 28 mmol/L Normal 22-30 [facility] Comment on above: Order Comment: Speci men Type: BLOOD SPECIMENOrdering Facility: [facility] Address: [address] [place] [address] Performed By: #### 1 9123-9, ####[facility] MILLTOWNCLIA [id number] [place] [address] [place] Creatinine [Mass/Vol] 0.74 mg/dL Normal 0.73-1.22 [facility] Comment on above: Order Comment: Speci men Type: BLOOD SPECIMENOrdering Facility: [facility] Address: [address] [place] [address] Performed By: #### 1 9123-9, 61903-8 ####[facility] [id number] [place] [address] [place] Creatinine and Glomerular filtration rate.predicted panel (S/P/Bld) 94 mL/min/1.73m??? Normal >=60 [facility] Comment on above: Order Comment: Willam robles Type: BLOOD SPECIMENOrdering Facility: [facility] Address: [address] [place] [address] Result Comment: Rod mated Glomerular Filtration Rate (eGFR) is calculated using the 2020 CKD-EPI creatinine equation. This equation utilizes serum creatinine, sex, and age as parameters. The creatinine assay has traceable calibration to isotope dilution-mass spectrometry. Refer to KDIGO guidelines for clinical interpretation. In patients with unstable renal function, e.g. those with acute kidney injury, the eGFR may not accurately reflect actual GFR. Performed By: #### 1 9123-9, 05067-5 ####[facility] [id number] [place] [address] [place] Glucose [Mass/Vol] 193 mg/dL High 74-99 [facility] Comment on above: Order Comment: Willam robles Type: BLOOD SPECIMENOrdering Facility: [facility] Address: [address] [place] [address] Result Comment: The [place] Diabetes Association (ADA) provides guidance for cutoff values for fasting glucose and random glucose. The ADA defines fasting as no caloric intake for at least 8 hours. Fasting plasma glucose results between 100 to 125 mg/dL indicate increased risk for diabetes (prediabetes).Fasting plasma glucose results greater than or equal to 126 mg/dL meet the criteria for diagnosis of diabetes. In the absence of unequivocal hyperglycemia, results should be confirmed by repeat testing. In a patient with classic symptoms of hyperglycemia or hyperglycemic crisis, random plasma glucose results greater than or equal to 200 mg/dL meet the criteria for diagnosis of diabetes.Reference: Standards of Medical Care in Diabetes 2016, [place] [employer]. Diabetes Care. 2016.39(Suppl 1). Performed By: #### 1 9123-9, ####[facility] MILLTOWNCLIA [id number] [place] [address] [place] Potassium [Moles/Vol] 3.9 mmol/L Normal 3.7-5.1 [facility] Comment on above: Order Comment: Speci men Type: BLOOD SPECIMENOrdering Facility: [facility] Address: [address] [place] [address] Performed By: #### 1 9123-9, ####[facility] MILLTOWNCLIA [id number] [place] [address] [place] Protein [Mass/Vol] 6.9 g/dL Normal 6.3-8.0 [facility] Comment on above: Order Comment: Speci men Type: BLOOD SPECIMENOrdering Facility: [facility] Address: [address] [place] [address] Performed By: #### 1 9123-9, ####[facility]EN[facility]CL[facility] [id number] [place] [address] [place] Sodium [Moles/Vol] 137 mmol/L Normal 136-144 [facility] Comment on above: Order Comment: Speci men Type: BLOOD SPECIMENOrdering Facility: [facility] Address: [address] [place] [address] Performed By: #### 1 9123-9, ####[facility] MILLTOWNCLIA [id number] [place] [address] [place] Urea nitrogen [Mass/Vol] 12 mg/dL Normal 9-24 [facility] Comment on above: Order Comment: Speci men Type: BLOOD SPECIMENOrdering Facility: [facility] Address: [address] [place], [place] [address] Performed By: #### 1 9123-9, ####[facility] MILLTOWNCLIA [id number] [place] [address] [place] MAGNESIUMon 08-17-2024 Magnesium [Mass/Vol] 1.7 mg/dL 1.7 - 2 .3 mg/dL [facility] Magnesium SerPl-mCncon 08-17 Magnesium [Mass/Vol] 1.7 mg/dL Normal 1.7-2.3 [facility] Comment on above: Order Comment: Speci men Type: BLOOD SPECIMENOrdering Facility: [facility] Address: [facility] [place] [address] Performed By: #### 1 9123-9, 70764-7 ####[facility] [id number] [place] [address] [place] Magnesium [Mass/Vol]on 08-17 Interpretation and review of laboratory results Normal [facility] No Panel InformationOrdered By: Cody Hutrado on 08-17-2024 [facility] CBC W Auto Differential pane l (Bld)on 08-10-2024 Basophils (Bld) [#/Vol] [facility] Basophils/100 WBC (Bld) 0.2 % [facility] Differential cell count method Nom (Bld) Auto [facility] Eosinophils (Bld) [#/Vol] [facility] Eosinophils/100 WBC (Bld) 0.1 % [facility] Erythrocyte distribution width (RBC) [Ratio] 21.4 % High 11.5 - 15.0 % [facility] Hematocrit (Bld) [Volume fraction] 31.1 % Low 39.0 - 51.0 % [facility] Hemoglobin (Bld) [Mass/Vol] 9.3 g/dL Low 13.0 - 17.0 g/dL [facility] Immature granulocytes (Bld) [#/Vol] 0.14 10*3/uL High NINF [facility] Immature granulocytes/100 WBC (Bld) 1.1 % [facility] Interpretation and review of laboratory results Abnormal [facility] Lymphocytes (Bld) [#/Vol] 1.21 10*3/uL [facility] Lymphocytes/100 WBC (Bld) 9.9 % [facility] MCH (RBC) [Entitic mass] 28.9 pg 26.0 - 34.0 pg [facility] MCHC (RBC) [Mass/Vol] 29.9 g/dL Low 30.5 - 36.0 g/dL [facility] MCV (RBC) [Entitic vol] 96.6 fL 80.0 - 100.0 fL [facility] Monocytes (Bld) [#/Vol] 0.32 10*3/uL [facility] Monocytes/100 WBC (Bld) 2.6 % [facility] Neutrophils (Bld) [#/Vol] 10.49 10*3/uL High [facility] Neutrophils/100 WBC (Bld) 86.1 % [facility] Nucleated RBC (Bld) [#/Vol] NINF [facility] Nucleated RBC/100 WBC (Bld) [Ratio] 0 % /100 WBC [facility] Platelet mean volume (Bld) [Entitic vol] 9 fL 9.0 - 12.7 fL [facility] Platelets (Bld) [#/Vol] 185 10*3/uL [facility] RBC (Bld) [#/Vol] 3.22 10*6/uL Low 4.20 - 6.0 0 m/uL [facility] WBC (Bld) [#/Vol] 12.19 10*3/uL High [facility] Basophils (Bld) [#/Vol] 10*3/uL Normal <0.11 [facility] Comment on above: Order Comment: Speci men Type: BLOOD SPECIMENOrdering Facility: [facility] Address: [address] [place] [address] Performed By: #### 5 7021-8 ####[facility] [id number] [place] [address] [place] Basophils/100 WBC (Bld) 0.2 % Normal [facility] Comment on above: Order Comment: Speci men Type: BLOOD SPECIMENOrdering Facility: [facility] Address: [address] [place] [address] Performed By: #### 5 7021-8 ####[facility] [id number] [place] [address] [place] Differential cell count method Nom (Bld) Auto Normal [facility] Comment on above: Order Comment: Speci men Type: BLOOD SPECIMENOrdering Facility: [facility] Address: [address] [place] [address] Performed By: #### 5 7021-8 ####[facility] [id number] [place] [address] [place] Eosinophils (Bld) [#/Vol] 10*3/uL Normal <0.46 [facility] Comment on above: Order Comment: Speci men Type: BLOOD SPECIMENOrdering Facility: [facility] Address: [address] [place] [address] Performed By: #### 5 7021-8 ####[facility] [id number] [place] [address] [place] Eosinophils/100 WBC (Bld) 0.1 % Normal [facility] Comment on above: Order Comment: Speci men Type: BLOOD SPECIMENOrdering Facility: [facility] Address: [address] [place] [address] Performed By: #### 5 7021-8 ####[facility] [id number] [place] [address] [place] Erythrocyte distribution width (RBC) [Ratio] 21.4 % High 11.5-15.0 [facility] Comment on above: Order Comment: Speci men Type: BLOOD SPECIMENOrdering Facility: [facility] Address: [address] [place] [address] Performed By: #### 5 7021-8 ####[facility] [id number] [place] [address] [place] Hematocrit (Bld) [Volume fraction] 31.1 % Low 39.0-51.0 [facility] Comment on above: Order Comment: Speci men Type: BLOOD SPECIMENOrdering Facility: [facility] Address: [address] [place] [address] Performed By: #### 5 7021-8 ####[facility] TEDDYWNCLIA [id number] [place] [id number] [place] Hemoglobin (Bld) [Mass/Vol] 9.3 g/dL Low 13.0-17.0 [facility] Comment on above: Order Comment: Speci men Type: BLOOD SPECIMENOrdering Facility: [facility] Address: [address] [place] [address] Performed By: #### 5 7021-8 ####[facility] [id number] [place] [address] [place] Immature granulocytes (Bld) [#/Vol] 0.14 10*3/uL High <0.10 [facility] Comment on above: Order Comment: Speci men Type: BLOOD SPECIMENOrdering Facility: [facility] Address: [address] [place] [address] Performed By: #### 5 7021-8 ####[facility] [id number] [place] [address] [place] Immature granulocytes/100 WBC (Bld) 1.1 % Normal [facility] Comment on above: Order Comment: Speci men Type: BLOOD SPECIMENOrdering Facility: [facility] Address: [address] [place] [address] Performed By: #### 5 7021-8 ####[facility]ENWNCLIA [id number] [place] [address] [place] Lymphocytes (Bld) [#/Vol] 1.21 10*3/uL Normal 1.00-4.00 [facility] Comment on above: Order Comment: Speci men Type: BLOOD SPECIMENOrdering Facility: [facility] Address: [address] [place] [address] Performed By: #### 5 7021-8 ####[facility]CL[facility] [id number] [place] [address] [place] Lymphocytes/100 WBC (Bld) 9.9 % Normal [facility] Comment on above: Order Comment: Speci men Type: BLOOD SPECIMENOrdering Facility: [facility] Address: [address] [place] [address] Performed By: #### 5 7021-8 ####[facility] [id number] [place] [address] [place] MCH (RBC) [Entitic mass] 28.9 pg Normal 26.0-34.0 [facility] Comment on above: Order Comment: Speci men Type: BLOOD SPECIMENOrdering Facility: [facility] Address: [address] [place] [address] Performed By: #### 5 7021-8 ####[facility] [id number] [place] [address] [place] MCHC (RBC) [Mass/Vol] 29.9 g/dL Low 30.5-36.0 [facility] Comment on above: Order Comment: Speci men Type: BLOOD SPECIMENOrdering Facility: [facility] Address: [address] [place] [address] Performed By: #### 5 7021-8 ####[facility] [id number] [place] [address] [place] MCV (RBC) [Entitic vol] 96.6 fL Normal 80.0-100.0 [facility] Comment on above: Order Comment: Speci men Type: BLOOD SPECIMENOrdering Facility: [facility] Address: [address] [place] [address] Performed By: #### 5 7021-8 ####[facility] [id number] [place] [address] [place] Monocytes (Bld) [#/Vol] 0.32 10*3/uL Normal <0.87 [facility] Comment on above: Order Comment: Speci men Type: BLOOD SPECIMENOrdering Facility: [facility] Address: [address] [place] [address] Performed By: #### 5 7021-8 ####[facility] [id number] [place] [address] [place] Monocytes/100 WBC (Bld) 2.6 % Normal [facility] Comment on above: Order Comment: Speci men Type: BLOOD SPECIMENOrdering Facility: [facility] Address: [address] [place] [address] Performed By: #### 5 7021-8 ####[facility] [id number] [place] [address] [place] Neutrophils (Bld) [#/Vol] 10.49 10*3/uL High 1.45-7.50 [facility] Comment on above: Order Comment: Speci men Type: BLOOD SPECIMENOrdering Facility: [facility] Address: [address] [place] [address] Performed By: #### 5 7021-8 ####[facility] [id number] [place] [address] [place] Neutrophils/100 WBC (Bld) 86.1 % Normal [facility] Comment on above: Order Comment: Speci men Type: BLOOD SPECIMENOrdering Facility: [facility] Address: [address] [place] [address] Performed By: #### 5 7021-8 ####[facility] [id number] [place] [address] [place] Nucleated RBC (Bld) [#/Vol] 10*3/uL Normal <0.01 [facility] Comment on above: Order Comment: Speci men Type: BLOOD SPECIMENOrdering Facility: [facility] Address: [address] [place] [address] Performed By: #### 5 7021-8 ####[facility] NAALIA [id number] [place] [address] [place] Nucleated RBC/100 WBC (Bld) [Ratio] 0.0 /100 WBC Normal [facility] Comment on above: Order Comment: Speci men Type: BLOOD SPECIMENOrdering Facility: [facility] Address: [address] [place] [address] Performed By: #### 5 7021-8 ####[facility] TEDDYBAYARDNCLIA [id number] [place] [address] [place] Platelet mean volume (Bld) [Entitic vol] 9.0 fL Normal 9.0-12.7 [facility] Comment on above: Order Comment: Speci men Type: BLOOD SPECIMENOrdering Facility: [facility] Address: [address] [place] [address] Performed By: #### 5 7021-8 ####[facility] [id number] [place] [address] [place] Platelets (Bld) [#/Vol] 185 10*3/uL Normal 150-400 [facility] Comment on above: Order Comment: Speci men Type: BLOOD SPECIMENOrdering Facility: [facility] Address: [address] [place] [address] Performed By: #### 5 7021-8 ####[facility] TEDDYBAYARDNCLIA [id number] [place] [address] [place] RBC (Bld) [#/Vol] 3.22 10*6/uL Low 4.20-6.00 [facility] Comment on above: Order Comment: Speci men Type: BLOOD SPECIMENOrdering Facility: [facility] Address: [address] [place] [address] Performed By: #### 5 7021-8 ####[facility]NEPALMET[facility] GENERAL HOSPITALFALGUNIA [id number] [place] [address] [place] WBC (Bld) [#/Vol] 12.19 10*3/uL High 3.70-11.00 [facility] Comment on above: Order Comment: Speci men Type: BLOOD SPECIMENOrdering Facility: [facility] Address: [address] [place] [address] Performed By: #### 5 7021-8 ####[facility] [id number] [place] [address] [place] CEA SerPl-mCncon 08-10-2024 Carcinoembryonic Ag [Mass/Vol] 15.1 ng/mL High <=2.9 [facility] Comment on above: Order Comment: Speci men Type: BLOOD SPECIMENOrdering Facility: [facility] Address: [address] [place] [address] Result Comment: Carc inoembryonic antigen test is used as an aid in monitoring response to treatment or recurrence in patients with established colorectal, breast, lung, prostatic, pancreatic, and ovarian carcinomas. Clinical correlation is required.The Carcinoembryonic antigen test was performed using the Bryce Iveth Unicel DXI paramagnetic particle chemiluminescent immunoassay method. Results obtained with different assay methods or kits cannot be used interchangeably. Performed By: #### 2 039-6 ####[facility] LABCLIA [id number] [place] [address] [place] CT ABD/PEL W IVCONon 025 CT ABD/PEL W IVCON Normal [facility] CT CHEST W IVCONon 5 CT CHEST W IVCON Normal [facility] Comprehensive metabolic 2000 panelOrdered By: Cody Hurtado on 08-10-2024 Albumin [Mass/Vol] 4 g/dL 3.9 - 4.9 g/dL [facility] ALP [Catalytic activity/Vol] 185 U/L High 38 - 113 U/L [facility] ALT [Catalytic activity/Vol] 11 U/L 10 - 54 U/L [facility] Anion gap [Moles/Vol] 7 mmol/L Low 8 - 15 mmol/L [facility] AST [Catalytic activity/Vol] 14 U/L 14 - 40 U/L [facility] Bilirubin [Mass/Vol] 0.5 mg/dL 0.2 - 1 .3 mg/dL [facility] Calcium [Mass/Vol] 9.3 mg/dL 8.5 - 10. 2 mg/dL [facility] Chloride [Moles/Vol] 101 mmol/L 98 - 10 7 mmol/L [facility] CO2 [Moles/Vol] 29 mmol/L 22 - 30 mmol/L [facility] Creatinine [Mass/Vol] 0.88 mg/dL 0.73 - 1.22 mg/dL [facility] GFR/1.73 sq M.predicted among non-blacks MDRD (S/P/Bld) [Vol rate/Area] 89 mL/min/{1.73_m2} - PINF [facility] Comment on above: Estimated Glomerular Filtration Rate (eGFR) is calculated using the 2020 CKD-EPI creatinine equation. This equation utilizes serum creatinine, sex, and age as parameters. The creatinine assay has traceable calibration to isotope dilution-mass spectrometry. Refer to KDIGO guidelines for clinical interpretation. In patients with unstable renal function, e.g. those with acute kidney injury, the eGFR may not accurately reflect actual GFR. Glucose [Mass/Vol] 60 mg/dL Low 74 - 99 mg/dL [facility] Comment on above: The [place] Di[employer] [place] Association (ADA) provides guidance for cutoff values for fasting glucose and random glucose. The ADA defines fasting as no caloric intake for at least 8 hours. Fasting plasma glucose results between 100 to 125 mg/dL indicate increased risk for diabetes (prediabetes). Fasting plasma glucose results greater than or equal to 126 mg/dL meet the criteria for diagnosis of diabetes. In the absence of unequivocal hyperglycemia, results should be confirmed by repeat testing. In a patient with classic symptoms of hyperglycemia or hyperglycemic crisis, random plasma glucose results greater than or equal to 200 mg/dL meet the criteria for diagnosis of diabetes. Reference: Standards of Medical Care in Diabetes 2016, [place] [employer]. Diabetes Care. 2016.39(Suppl 1). Interpretation and review of laboratory results Abnormal [facility] Potassium [Moles/Vol] 3.2 mmol/L Low 3.7 - 5.1 mmol/L [facility] Protein [Mass/Vol] 7 g/dL 6.3 - 8.0 g/dL [facility] Sodium [Moles/Vol] 137 mmol/L 136 - 144 mmol/L [facility] Urea nitrogen [Mass/Vol] 34 mg/dL High 9 - 24 mg/dL [facility] Comprehensive metabolic 2000 panelon 08-10-2024 Albumin [Mass/Vol] 4.0 g/dL Normal 3.9-4.9 [facility] Comment on above: Order Comment: Speci men Type: BLOOD SPECIMENOrdering Facility: [facility] Address: [address] [place] [address] Performed By: #### 1 9123-9, 52296-4 ####[facility] [id number] [place] [address] [place] ALP [Catalytic activity/Vol] 185 U/L High 38-113 [facility] Comment on above: Order Comment: Speci men Type: BLOOD SPECIMENOrdering Facility: [facility] Address: [address] [place] [address] Performed By: #### 1 9123-9, 11949-7 ####[facility] HOSPITALMckenna [id number] [place] [address] [place] ALT [Catalytic activity/Vol] 11 U/L Normal 10-54 [facility] Comment on above: Order Comment: Speci men Type: BLOOD SPECIMENOrdering Facility: [facility] Address: [address] [place] [address] Performed By: #### 1 9123-9, 04513-5 ####[facility] HOSPITALNCLIA [id number] [place] [address] [place] Anion gap [Moles/Vol] 7 mmol/L Low 8-15 [facility] Comment on above: Order Comment: Speci men Type: BLOOD SPECIMENOrdering Facility: [facility] Address: [address] [place] [address] Performed By: #### 1 9123-9, ####[facility] MILLTOWNCLIA [id number] [place] [address] [place] AST [Catalytic activity/Vol] 14 U/L Normal 14-40 [facility] Comment on above: Order Comment: Speci men Type: BLOOD SPECIMENOrdering Facility: [facility] Address: [address] [place] [address] Performed By: #### 1 9123-9, ####[facility] MILLTOWNCLIA [id number] [place] [address] [place] Bilirubin [Mass/Vol] 0.5 mg/dL Normal 0.2-1.3 [facility] Comment on above: Order Comment: Speci men Type: BLOOD SPECIMENOrdering Facility: [facility] Address: [address] [place] [address] Performed By: #### 1 9123-9, ####[facility] GARDENWNCLIA [id number] [place] [address] [place] Calcium [Mass/Vol] 9.3 mg/dL Normal 8.5-10.2 [facility] Comment on above: Order Comment: Speci men Type: BLOOD SPECIMENOrdering Facility: [facility] Address: [address] [place] [address] Performed By: #### 1 9123-9, ####[facility] MILLTOWNCLIA [id number] [place] [address] [place] Chloride [Moles/Vol] 101 mmol/L Normal 98-107 [facility] Comment on above: Order Comment: Speci men Type: BLOOD SPECIMENOrdering Facility: [facility] Address: [address] [place] [address] Performed By: #### 1 9123-9, ####[facility] MILLTOWNCLIA [id number] [place] [address] [place] CO2 [Moles/Vol] 29 mmol/L Normal 22-30 [facility] Comment on above: Order Comment: Patti margaret Type: BLOOD SPECIMENOrdering Facility: [facility] Address: [address] [place] [address] Performed By: #### 1 9123-9, 79117-8 ####[facility] HOSPITALBANG [id number] [place] [address] [place] Creatinine [Mass/Vol] 0.88 mg/dL Normal 0.73-1.22 [facility] Comment on above: Order Comment: Speci men Type: BLOOD SPECIMENOrdering Facility: [facility] Address: [address] [place] [address] Performed By: #### 1 9123-9, 26364-6 ####[facility] [id number] [place] [address] [place] Creatinine and Glomerular filtration rate.predicted panel (S/P/Bld) 89 mL/min/1.73m??? Normal >=60 [facility] Comment on above: Order Comment: Willam robles Type: BLOOD SPECIMENOrdering Facility: [facility] Address: [address] [place] [address] Result Comment: Rod mated Glomerular Filtration Rate (eGFR) is calculated using the 2020 CKD-EPI creatinine equation. This equation utilizes serum creatinine, sex, and age as parameters. The creatinine assay has traceable calibration to isotope dilution-mass spectrometry. Refer to KDIGO guidelines for clinical interpretation. In patients with unstable renal function, e.g. those with acute kidney injury, the eGFR may not accurately reflect actual GFR. Performed By: #### 1 9123-9, 90289-6 ####[facility] HOSPITALNCLIA [id number] [place] [address] [place] Glucose [Mass/Vol] 60 mg/dL Low 74-99 [facility] Comment on above: Order Comment: Speci men Type: BLOOD SPECIMENOrdering Facility: [facility] Address: [address] [place], [place] [address] Result Comment: The [place] Diabetes Association (ADA) provides guidance for cutoff values for fasting glucose and random glucose. The ADA defines fasting as no caloric intake for at least 8 hours. Fasting plasma glucose results between 100 to 125 mg/dL indicate increased risk for diabetes (prediabetes).Fasting plasma glucose results greater than or equal to 126 mg/dL meet the criteria for diagnosis of diabetes. In the absence of unequivocal hyperglycemia, results should be confirmed by repeat testing. In a patient with classic symptoms of hyperglycemia or hyperglycemic crisis, random plasma glucose results greater than or equal to 200 mg/dL meet the criteria for diagnosis of diabetes.Reference: Standards of Medical Care in Diabetes 2016, [place] [employer]. Diabetes Care. 2016.39(Suppl 1). Performed By: #### 1 9123-9, 72096-5 ####[facility] HOSPITALA [id number] [place] [address] [place] Potassium [Moles/Vol] 3.2 mmol/L Low 3.7-5.1 [facility] Comment on above: Order Comment: Willam robles Type: BLOOD SPECIMENOrdering Facility: [facility] Address: [address] [place] [address] Performed By: #### 1 9123-9, 20166-7 ####[facility] GARDENWHILIA [id number] [place] [id number] [place] Protein [Mass/Vol] 7.0 g/dL Normal 6.3-8.0 [facility] Comment on above: Order Comment: Willam robles Type: BLOOD SPECIMENOrdering Facility: [facility] Address: [address] [place], [place] [address] Performed By: #### 1 9123-9, ####[facility] CLAU MILLWNCLIA [id number] [place] [id number] [place] Sodium [Moles/Vol] 137 mmol/L Normal 136-144 [facility] Comment on above: Order Comment: Speci men Type: BLOOD SPECIMENOrdering Facility: [facility] Address: [address] [place] [address] Performed By: #### 1 9123-9, 85632-4 ####[facility] TEDDYBAYARDNCLI [id number] [place] [address] [place] Urea nitrogen [Mass/Vol] 34 mg/dL High 9-24 [facility] Comment on above: Order Comment: Speci men Type: BLOOD SPECIMENOrdering Facility: [facility] Address: [address] [place] [address] Performed By: #### 1 9123-9, 35468-8 ####[facility] HOSPITALNCLI [id number] [place] [address] [place] MAGNESIUMon 08-10-2024 Magnesium [Mass/Vol] 1.8 mg/dL 1.7 - 2 .3 mg/dL [facility] Magnesium SerPl-mCncon 08-10 Magnesium [Mass/Vol] 1.8 mg/dL Normal 1.7-2.3 [facility] Comment on above: Order Comment: Speci men Type: BLOOD SPECIMENOrdering Facility: [facility] Address: [address] [place] [address] Performed By: #### 1 9123-9, 50314-8 ####[facility] NORTHLIA [id number] [place] [address] [place] Magnesium [Mass/Vol]on 08-10 Interpretation and review of laboratory results Normal [facility] No Panel InformationOrdered By: Cody Hurtado on 08-10-2024 [facility] UA DIP, URINE (POC)on 2024 BILIRUBIN UA (POCT) Negative Negative [facility] CLARITY UA (POCT) Clear [facility] COLOR UA (POCT) Jocelin [facility] GLUCOSE UA (POCT) Negative Negative mg/dL [facility] Hemoglobin Ql (U) Negative Negative [facility] KETONE UA (POCT) Negative Negative mg/dL [facility] LEUKOCYTES UA (POCT) Negative Negative [facility] NITRITE UA (POCT) Negative Negative [facility] PH UA (POCT) 5.5 4.5 - 8.0 [facility] Protein Ql (U) Negative Negative mg/dL [facility] SPECIFIC GRAVITY UA (POCT) 1.02 1.005 - 1.030 [facility] UROBILINOGEN UA (POCT) 0.2 Normal E.U./dL [facility] Location:[facility], [address], [place], [address] [facility] POINT OF CARE [facility] CBC W Auto Differential pane l (Bld)on 08-03-2024 Basophils (Bld) [#/Vol] [facility] Basophils/100 WBC (Bld) 0.2 % [facility] Differential cell count method Nom (Bld) Auto [facility] Eosinophils (Bld) [#/Vol] 0.05 10*3/uL [facility] Eosinophils/100 WBC (Bld) 1.1 % [facility] Erythrocyte distribution width (RBC) [Ratio] 23.0 % High 11.5 - 15.0 % [facility] Hematocrit (Bld) [Volume fraction] 30.8 % Low 39.0 - 51.0 % [facility] Hemoglobin (Bld) [Mass/Vol] 9.2 g/dL Low 13.0 - 17.0 g/dL [facility] Immature granulocytes (Bld) [#/Vol] 0.04 10*3/uL [facility] Immature granulocytes/100 WBC (Bld) 0.9 % [facility] Interpretation and review of laboratory results Abnormal [facility] Lymphocytes (Bld) [#/Vol] 0.68 10*3/uL Low [facility] Lymphocytes/100 WBC (Bld) 15.1 % [facility] MCH (RBC) [Entitic mass] 29.1 pg 26.0 - 34.0 pg [facility] MCHC (RBC) [Mass/Vol] 29.9 g/dL Low 30.5 - 36.0 g/dL [facility] MCV (RBC) [Entitic vol] 97.5 fL 80.0 - 100.0 fL [facility] Monocytes (Bld) [#/Vol] 0.37 10*3/uL NINF [facility] Monocytes/100 WBC (Bld) 8.2 % [facility] Neutrophils (Bld) [#/Vol] 3.34 10*3/uL [facility] Neutrophils/100 WBC (Bld) 74.5 % [facility] Nucleated RBC (Bld) [#/Vol] NINF [facility] Nucleated RBC/100 WBC (Bld) [Ratio] 0.0 % /100 WBC [facility] Platelet mean volume (Bld) [Entitic vol] 9.5 fL 9.0 - 12.7 fL [facility] Platelets (Bld) [#/Vol] 123 10*3/uL Low [facility] RBC (Bld) [#/Vol] 3.16 10*6/uL Low 4.20 - 6.0 0 m/uL [facility] WBC (Bld) [#/Vol] 4.49 10*3/uL [facility] Basophils (Bld) [#/Vol] 10*3/uL Normal <0.11 [facility] Comment on above: Order Comment: Speci men Type: BLOOD SPECIMENOrdering Facility: [facility] Address: [address] [place] [address] Performed By: #### 5 7021-8 ####[facility] [id number] [place] [address] [place] Basophils/100 WBC (Bld) 0.2 % Normal [facility] Comment on above: Order Comment: Speci men Type: BLOOD SPECIMENOrdering Facility: [facility] Address: [address] [place] [address] Performed By: #### 5 7021-8 ####[facility] [id number] [place] [address] [place] Differential cell count method Nom (Bld) Auto Normal [facility] Comment on above: Order Comment: Speci men Type: BLOOD SPECIMENOrdering Facility: [facility] Address: [address] [place] [address] Performed By: #### 5 7021-8 ####[facility] NORTHLIA [id number] [place] [address] [place] Eosinophils (Bld) [#/Vol] 0.05 10*3/uL Normal <0.46 [facility] Comment on above: Order Comment: Speci men Type: BLOOD SPECIMENOrdering Facility: [facility] Address: [address] [place] [address] Performed By: #### 5 7021-8 ####[facility] [id number] [place] [address] [place] Eosinophils/100 WBC (Bld) 1.1 % Normal [facility] Comment on above: Order Comment: Speci men Type: BLOOD SPECIMENOrdering Facility: [facility] Address: [address] [place] [address] Performed By: #### 5 7021-8 ####[facility] [id number] [place] [address] [place] Erythrocyte distribution width (RBC) [Ratio] 23.0 % High 11.5-15.0 [facility] Comment on above: Order Comment: Speci men Type: BLOOD SPECIMENOrdering Facility: [facility] Address: [address] [place] [address] Performed By: #### 5 7021-8 ####[facility] [id number] [place] [address] [place] Hematocrit (Bld) [Volume fraction] 30.8 % Low 39.0-51.0 [facility] Comment on above: Order Comment: Speci men Type: BLOOD SPECIMENOrdering Facility: [facility] Address: [address] [place] [address] Performed By: #### 5 7021-8 ####[facility] HOSPITALNCLI [id number] [place] [address] [place] Hemoglobin (Bld) [Mass/Vol] 9.2 g/dL Low 13.0-17.0 [facility] Comment on above: Order Comment: Speci men Type: BLOOD SPECIMENOrdering Facility: [facility] Address: [address] [place] [address] Performed By: #### 5 7021-8 ####[facility]ITALNCL[facility] [id number] [place] [address] [place] Immature granulocytes (Bld) [#/Vol] 0.04 10*3/uL Normal <0.10 [facility] Comment on above: Order Comment: Speci men Type: BLOOD SPECIMENOrdering Facility: [facility] Address: [address] [place] [address] Performed By: #### 5 7021-8 ####[facility] [id number] [place] [address] [place] Immature granulocytes/100 WBC (Bld) 0.9 % Normal [facility] Comment on above: Order Comment: Speci men Type: BLOOD SPECIMENOrdering Facility: [facility] Address: [address] [place] [address] Performed By: #### 5 7021-8 ####[facility] [id number] [place] [address] [place] Lymphocytes (Bld) [#/Vol] 0.68 10*3/uL Low 1.00-4.00 [facility] Comment on above: Order Comment: Speci men Type: BLOOD SPECIMENOrdering Facility: [facility] Address: [address] [place] [address] Performed By: #### 5 7021-8 ####[facility] [id number] [place] [address] [place] Lymphocytes/100 WBC (Bld) 15.1 % Normal [facility] Comment on above: Order Comment: Speci men Type: BLOOD SPECIMENOrdering Facility: [facility] Address: [address] [place] [address] Performed By: #### 5 7021-8 ####[facility] ANGEL [id number] [address] MCH (RBC) [Entitic mass] 29.1 pg Normal 26.0-34.0 [facility] Comment on above: Order Comment: Speci men Type: BLOOD SPECIMENOrdering Facility: [facility] Address: [address] [place] [address] Performed By: #### 5 7021-8 ####[facility] HOSPITALNCMckenna [id number] [place] [address] [place] MCHC (RBC) [Mass/Vol] 29.9 g/dL Low 30.5-36.0 [facility] Comment on above: Order Comment: Speci men Type: BLOOD SPECIMENOrdering Facility: [facility] Address: [address] [place] [address] Performed By: #### 5 7021-8 ####[facility] HOSPITALGIANNAMckenna [id number] [place] [address] [place] MCV (RBC) [Entitic vol] 97.5 fL Normal 80.0-100.0 [facility] Comment on above: Order Comment: Speci men Type: BLOOD SPECIMENOrdering Facility: [facility] Address: [address] [place] [address] Performed By: #### 5 7021-8 ####[facility] [id number] [place] [address] [facility] [place] Monocytes (Bld) [#/Vol] 0.37 10*3/uL Normal <0.87 [facility] Comment on above: Order Comment: Speci men Type: BLOOD SPECIMENOrdering Facility: [facility] Address: [address] [place] [address] Performed By: #### 5 7021-8 ####[facility] TEDDYWNCLIA [id number] [place] [address] [place] Monocytes/100 WBC (Bld) 8.2 % Normal [facility] Comment on above: Order Comment: Speci men Type: BLOOD SPECIMENOrdering Facility: [facility] Address: [address] [place] [address] Performed By: #### 5 7021-8 ####[facility] NORTHLIA [id number] [place] [address] [place] Neutrophils (Bld) [#/Vol] 3.34 10*3/uL Normal 1.45-7.50 [facility] Comment on above: Order Comment: Speci men Type: BLOOD SPECIMENOrdering Facility: [facility] Address: [address] [place] [address] Performed By: #### 5 7021-8 ####[facility] HOS[facility]ITALA [id number] [place] [address] [place] Neutrophils/100 WBC (Bld) 74.5 % Normal [facility] Comment on above: Order Comment: Speci men Type: BLOOD SPECIMENOrdering Facility: [facility] Address: [address] [place] [address] Performed By: #### 5 7021-8 ####[facility] NORTHLIA [id number] [place] [address] [place] Nucleated RBC (Bld) [#/Vol] 10*3/uL Normal <0.01 [facility] Comment on above: Order Comment: Speci men Type: BLOOD SPECIMENOrdering Facility: [facility] Address: [address] [place] [address] Performed By: #### 5 7021-8 ####[facility]OSPITALNCLIA [id number] [place] [address] [place] Nucleated RBC/100 WBC (Bld) [Ratio] 0.0 /100 WBC Normal [facility] Comment on above: Order Comment: Speci men Type: BLOOD SPECIMENOrdering Facility: [facility] Address: [address] [place] [address] Performed By: #### 5 7021-8 ####[facility]ITALN[facility] [id number] [place] [address] [place] Platelet mean volume (Bld) [Entitic vol] 9.5 fL Normal 9.0-12.7 [facility] Comment on above: Order Comment: Speci men Type: BLOOD SPECIMENOrdering Facility: [facility] Address: [address] [place] [address] Performed By: #### 5 7021-8 ####[facility] [id number] [place] [address] [place] Platelets (Bld) [#/Vol] 123 10*3/uL Low 150-400 [facility] Comment on above: Order Comment: Speci men Type: BLOOD SPECIMENOrdering Facility: [facility] Address: [address] [place] [address] Performed By: #### 5 7021-8 ####[facility]ITALN[facility] [id number] [place] [address] [place] RBC (Bld) [#/Vol] 3.16 10*6/uL Low 4.20-6.00 [facility] Comment on above: Order Comment: Speci men Type: BLOOD SPECIMENOrdering Facility: [facility] Address: [address] [place] [address] Performed By: #### 5 7021-8 ####[facility]PITALNCLIA [id number] [place] [address] [place] WBC (Bld) [#/Vol] 4.49 10*3/uL Normal 3.70-11.00 [facility] Comment on above: Order Comment: Speci men Type: BLOOD SPECIMENOrdering Facility: [facility] Address: [address] [place] [address] Performed By: #### 5 7021-8 ####[facility] CLAU ORTIZ [id number] [place] [address] [place] CEA SerPl-mCncon 08-03-2024 Carcinoembryonic Ag [Mass/Vol] 11.7 ng/mL High <=2.9 [facility] Comment on above: Order Comment: Speci men Type: BLOOD SPECIMENOrdering Facility: [facility] Address: [address] [place], [place] [address] [address] Result Comment: Carc inoembryonic antigen test is used as an aid in monitoring response to treatment or recurrence in patients with established colorectal, breast, lung, prostatic, pancreatic, and ovarian carcinomas. Clinical correlation is required.The Carcinoembryonic antigen test was performed using the Bryce [employer]ippr Unicel DXI paramagnetic particle chemiluminescent immunoassay method. Results obtained with different assay methods or kits cannot be used interchangeably. Performed By: #### 2 039-6 ####[facility] LABCLIA [id number] [place] [address] [place] Comprehensive metabolic 2000 panelOrdered By: Mady Cabello on 08-03-2024 Albumin [Mass/Vol] 3.8 g/dL Low 3.9 - 4.9 g/dL [facility] ALP [Catalytic activity/Vol] 123 U/L High 38 - 113 U/L [facility] ALT [Catalytic activity/Vol] 8 U/L Low 10 - 54 U/L [facility] Anion gap [Moles/Vol] 8 mmol/L 8 - 15 mmol/L [facility] AST [Catalytic activity/Vol] 14 U/L 14 - 40 U/L [facility] Bilirubin [Mass/Vol] 0.6 mg/dL 0.2 - 1 .3 mg/dL [facility] Calcium [Mass/Vol] 9.1 mg/dL 8.5 - 10. 2 mg/dL [facility] Chloride [Moles/Vol] 100 mmol/L 98 - 10 7 mmol/L [facility] CO2 [Moles/Vol] 27 mmol/L 22 - 30 mmol/L [facility] Creatinine [Mass/Vol] 0.75 mg/dL 0.73 - 1.22 mg/dL [facility] GFR/1.73 sq M.predicted among non-blacks MDRD (S/P/Bld) [Vol rate/Area] 94 mL/min/{1.73_m2} - PINF [facility] Comment on above: Estimated Glomerular Filtration Rate (eGFR) is calculated using the 2020 CKD-EPI creatinine equation. This equation utilizes serum creatinine, sex, and age as parameters. The creatinine assay has traceable calibration to isotope dilution-mass spectrometry. Refer to KDIGO guidelines for clinical interpretation. In patients with unstable renal function, e.g. those with acute kidney injury, the eGFR may not accurately reflect actual GFR. Glucose [Mass/Vol] 187 mg/dL High 74 - 99 mg/dL [facility] Comment on above: The [place] Di[employer] Association (ADA) provides guidance for cutoff values for fasting glucose and random glucose. The ADA defines fasting as no caloric intake for at least 8 hours. Fasting plasma glucose results between 100 to 125 mg/dL indicate increased risk for diabetes (prediabetes). Fasting plasma glucose results greater than or equal to 126 mg/dL meet the criteria for diagnosis of diabetes. In the absence of unequivocal hyperglycemia, results should be confirmed by repeat testing. In a patient with classic symptoms of hyperglycemia or hyperglycemic crisis, random plasma glucose results greater than or equal to 200 mg/dL meet the criteria for diagnosis of diabetes. Reference: Standards of Medical Care in Diabetes 2016, [place] [employer]. Diabetes Care. 2016.39(Suppl 1). Interpretation and review of laboratory results Abnormal [facility] Potassium [Moles/Vol] 3.9 mmol/L 3.7 - 5.1 mmol/L [facility] Protein [Mass/Vol] 7.0 g/dL 6.3 - 8.0 g/dL [facility] Sodium [Moles/Vol] 135 mmol/L Low 136 - 144 mmol/L [facility] Urea nitrogen [Mass/Vol] 12 mg/dL 9 - 24 mg/dL [facility] Comprehensive metabolic 2000 panelon 08-03-2024 Albumin [Mass/Vol] 3.8 g/dL Low 3.9-4.9 [facility] Comment on above: Order Comment: Speci men Type: BLOOD SPECIMENOrdering Facility: [facility] Address: [address] [place] [address] Performed By: #### 2 4323-8, ####[facility] JENNIEGIANNACARLO [id number] [place] [address] [place] ALP [Catalytic activity/Vol] 123 U/L High 38-113 [facility] Comment on above: Order Comment: Speci men Type: BLOOD SPECIMENOrdering Facility: [facility] Address: [address] [place] [address] Performed By: #### 2 4323-8, ####[facility] TEDDYBAYARDFALGUNIA [id number] [place] [address] [place] ALT [Catalytic activity/Vol] 8 U/L Low 10-54 [facility] Comment on above: Order Comment: Speci men Type: BLOOD SPECIMENOrdering Facility: [facility] Address: [address] [place] [address] Performed By: #### 2 4323-8, ####[facility] HOSPITALFALGUNIA [id number] [place] [address] [place] Anion gap [Moles/Vol] 8 mmol/L Normal 8-15 [facility] Comment on above: Order Comment: Speci men Type: BLOOD SPECIMENOrdering Facility: [facility] Address: [address] [place] [address] Performed By: #### 2 4323-8, ####[facility]ITALNCLIA [id number] [place] [address] [place] AST [Catalytic activity/Vol] 14 U/L Normal 14-40 [facility] Comment on above: Order Comment: Speci men Type: BLOOD SPECIMENOrdering Facility: [facility] Address: [address] [place] [address] Performed By: #### 2 4323-8, ####[facility] CLAU MILLTOWNCLIA [id number] [place] [id number] [place] Bilirubin [Mass/Vol] 0.6 mg/dL Normal 0.2-1.3 [facility] Comment on above: Order Comment: Speci men Type: BLOOD SPECIMENOrdering Facility: [facility] Address: [address] [place] [address] Performed By: #### 2 4328, ####[facility] MILLTOWNCLIA [id number] [place] [address] [place] Calcium [Mass/Vol] 9.1 mg/dL Normal 8.5-10.2 [facility] Comment on above: Order Comment: Speci men Type: BLOOD SPECIMENOrdering Facility: [facility] Address: [address] [place] [address] Performed By: #### 2 43209-03, ####[facility] G[facility]ENWNCLIA [id number] [place] [address] [place] Chloride [Moles/Vol] 100 mmol/L Normal 98-107 [facility] Comment on above: Order Comment: Speci men Type: BLOOD SPECIMENOrdering Facility: [facility] Address: [address] [place] [address] Performed By: #### 2 43209-03, ####[facility] MILLTOWNCLIA [id number] [place] [address] [place] CO2 [Moles/Vol] 27 mmol/L Normal 22-30 [facility] Comment on above: Order Comment: Speci men Type: BLOOD SPECIMENOrdering Facility: [facility] Address: [address] [place], [place] [address] Performed By: #### 2 4323-8, ####[facility] MILLTOWNCLIA [id number] [place] [address] [place] Creatinine [Mass/Vol] 0.75 mg/dL Normal 0.73-1.22 [facility] Comment on above: Order Comment: Willam robles Type: BLOOD SPECIMENOrdering Facility: [facility] Address: [address] [place] [address] Performed By: #### 2 4323-8, ####[facility] [id number] [place] [id number] [place] Creatinine and Glomerular filtration rate.predicted panel (S/P/Bld) 94 mL/min/1.73m??? Normal >=60 [facility] Comment on above: Order Comment: Willam robles Type: BLOOD SPECIMENOrdering Facility: [facility] Address: [address] [place] [address] Result Comment: Rod mated Glomerular Filtration Rate (eGFR) is calculated using the 2020 CKD-EPI creatinine equation. This equation utilizes serum creatinine, sex, and age as parameters. The creatinine assay has traceable calibration to isotope dilution-mass spectrometry. Refer to KDIGO guidelines for clinical interpretation. In patients with unstable renal function, e.g. those with acute kidney injury, the eGFR may not accurately reflect actual GFR. Performed By: #### 2 4323-8, ####[facility] NORTHLIA [id number] [place] [address] [place] Glucose [Mass/Vol] 187 mg/dL High 74-99 [facility] Comment on above: Order Comment: Willam robles Type: BLOOD SPECIMENOrdering Facility: [facility] Address: [address] [place] [id number] Result Comment: The [place] Diabetes Association (ADA) provides guidance for cutoff values for fasting glucose and random glucose. The ADA defines fasting as no caloric intake for at least 8 hours. Fasting plasma glucose results between 100 to 125 mg/dL indicate increased risk for diabetes (prediabetes).Fasting plasma glucose results greater than or equal to 126 mg/dL meet the criteria for diagnosis of diabetes. In the absence of unequivocal hyperglycemia, results should be confirmed by repeat testing. In a patient with classic symptoms of hyperglycemia or hyperglycemic crisis, random plasma glucose results greater than or equal to 200 mg/dL meet the criteria for diagnosis of diabetes.Reference: Standards of Medical Care in Diabetes 2016, [place] [employer]. Diabetes Care. 2016.39(Suppl 1). Performed By: #### 2 4323-8, ####[facility] MILLJEFFERYWGIANNALIMckenna [id number] [place] [address] [place] Potassium [Moles/Vol] 3.9 mmol/L Normal 3.7-5.1 [facility] Comment on above: Order Comment: Speci men Type: BLOOD SPECIMENOrdering Facility: [facility] Address: [address] [place] [address] Performed By: #### 2 4323-8, ####[facility] HOSPITALBANG [id number] [place] [address] [place] Protein [Mass/Vol] 7.0 g/dL Normal 6.3-8.0 [facility] Comment on above: Order Comment: Speci men Type: BLOOD SPECIMENOrdering Facility: [facility] Address: [address] [place] [address] Performed By: #### 2 4323-8, ####[facility]OSPITALBANG [id number] [place] [address] [place] Sodium [Moles/Vol] 135 mmol/L Low 136-144 [facility] Comment on above: Order Comment: Speci men Type: BLOOD SPECIMENOrdering Facility: [facility] Address: [address] [place] [address] Performed By: #### 2 4323-, ####[facility] GARDENWNCLIA [id number] [place] [address] [place] Urea nitrogen [Mass/Vol] 12 mg/dL Normal 9-24 [facility] Comment on above: Order Comment: Speci men Type: BLOOD SPECIMENOrdering Facility: [facility] Address: [address] [place] [address] Performed By: #### 2 4323-8, ####[facility]OSPITALNCLIA [id number] [place] [address] [place] MAGNESIUMon 08-03-2024 Magnesium [Mass/Vol] 1.8 mg/dL 1.7 - 2 .3 mg/dL [facility] Magnesium SerPl-mCncon 08-03 Magnesium [Mass/Vol] 1.8 mg/dL Normal 1.7-2.3 [facility] Comment on above: Order Comment: Speci men Type: BLOOD SPECIMENOrdering Facility: [facility] Address: [address] [place] [address] Performed By: #### 2 4323-8, ####[facility]ITALA [id number] [place] [address] [place] Magnesium [Mass/Vol]on 08-03 Interpretation and review of laboratory results Normal [facility] No Panel InformationOrdered By: Mady Cabello on 08-03-2024 [facility] CBC W Auto Differential pane l (Bld)on 07-20-2024 Basophils (Bld) [#/Vol] 0.05 10*3/uL Normal <0.11 [facility] Comment on above: Order Comment: Speci men Type: BLOOD SPECIMENOrdering Facility: [facility] Address: [address] [place] [address] Performed By: #### 5 7021-8 ####[facility] [id number] [place] [address] [place] Basophils/100 WBC (Bld) 0.8 % Normal [facility] Comment on above: Order Comment: Speci men Type: BLOOD SPECIMENOrdering Facility: [facility] Address: [address] [place] [address] Performed By: #### 5 7021-8 ####[facility] MILLWNCLIA [id number] [place] [address] [place] Differential cell count method Nom (Bld) Auto Normal [facility] Comment on above: Order Comment: Speci men Type: BLOOD SPECIMENOrdering Facility: [facility] Address: [address] [place] [address] Performed By: #### 5 7021-8 ####[facility] NORTHLIA [id number] [place] [address] [place] Eosinophils (Bld) [#/Vol] 0.13 10*3/uL Normal <0.46 [facility] Comment on above: Order Comment: Speci men Type: BLOOD SPECIMENOrdering Facility: [facility] Address: [address] [place] [address] Performed By: #### 5 7021-8 ####[facility]ITALA [id number] [place] [address] [place] Eosinophils/100 WBC (Bld) 2.0 % Normal [facility] Comment on above: Order Comment: Speci men Type: BLOOD SPECIMENOrdering Facility: [facility] Address: [address] [place] [address] Performed By: #### 5 7021-8 ####[facility]ITALA [id number] [place] [address] [place] Erythrocyte distribution width (RBC) [Ratio] 22.5 % High 11.5-15.0 [facility] Comment on above: Order Comment: Speci men Type: BLOOD SPECIMENOrdering Facility: [facility] Address: [address] [place] [address] Performed By: #### 5 7021-8 ####[facility]PITALNCLIA [id number] [place] [address] [place] Hematocrit (Bld) [Volume fraction] 31.0 % Low 39.0-51.0 [facility] Comment on above: Order Comment: Speci men Type: BLOOD SPECIMENOrdering Facility: [facility] Address: [address] [place] [address] Performed By: #### 5 7021-8 ####[facility]ITALNCL[facility] [id number] [place] [address] [place] Hemoglobin (Bld) [Mass/Vol] 9.0 g/dL Low 13.0-17.0 [facility] Comment on above: Order Comment: Speci men Type: BLOOD SPECIMENOrdering Facility: [facility] Address: [address] [place] [address] Performed By: #### 5 7021-8 ####[facility]ITALNCL[facility] [id number] [place] [address] [place] Immature granulocytes (Bld) [#/Vol] 0.05 10*3/uL Normal <0.10 [facility] Comment on above: Order Comment: Speci men Type: BLOOD SPECIMENOrdering Facility: [facility] Address: [address] [place] [address] Performed By: #### 5 7021-8 ####[facility]ITALNCLIA [id number] [place] [address] [place] Immature granulocytes/100 WBC (Bld) 0.8 % Normal [facility] Comment on above: Order Comment: Speci men Type: BLOOD SPECIMENOrdering Facility: [facility] Address: [address] [place] [address] Performed By: #### 5 7021-8 ####[facility]ITALNCLIA [id number] [place] [address] [place] Lymphocytes (Bld) [#/Vol] 1.08 10*3/uL Normal 1.00-4.00 [facility] Comment on above: Order Comment: Speci men Type: BLOOD SPECIMENOrdering Facility: [facility] Address: [address] [place] [address] Performed By: #### 5 7021-8 ####[facility] TEDDYGANESH [id number] [place] [address] [place] Lymphocytes/100 WBC (Bld) 17.0 % Normal [facility] Comment on above: Order Comment: Speci men Type: BLOOD SPECIMENOrdering Facility: [facility] Address: [address] [place] [address] Performed By: #### 5 7021-8 ####[facility] HOSPITALNCCARLO [id number] [place] [address] [place] MCH (RBC) [Entitic mass] 28.2 pg Normal 26.0-34.0 [facility] Comment on above: Order Comment: Speci men Type: BLOOD SPECIMENOrdering Facility: [facility] Address: [address] [place] [address] Performed By: #### 5 7021-8 ####[facility] HOSPITALNCA [id number] [place] [address] [place] MCHC (RBC) [Mass/Vol] 29.0 g/dL Low 30.5-36.0 [facility] Comment on above: Order Comment: Speci men Type: BLOOD SPECIMENOrdering Facility: [facility] Address: [address] [place] [address] Performed By: #### 5 7021-8 ####[facility]PITALNCLIA [id number] [place] [address] [place] MCV (RBC) [Entitic vol] 97.2 fL Normal 80.0-100.0 [facility] Comment on above: Order Comment: Speci men Type: BLOOD SPECIMENOrdering Facility: [facility] Address: [address] [place] [address] Performed By: #### 5 7021-8 ####[facility] MILLWNCLIA [id number] [place] [address] [place] Monocytes (Bld) [#/Vol] 0.53 10*3/uL Normal <0.87 [facility] Comment on above: Order Comment: Speci men Type: BLOOD SPECIMENOrdering Facility: [facility] Address: [address] [place] [address] Performed By: #### 5 7021-8 ####[facility] NORTHLIA [id number] [place] [address] [place] Monocytes/100 WBC (Bld) 8.3 % Normal [facility] Comment on above: Order Comment: Speci men Type: BLOOD SPECIMENOrdering Facility: [facility] Address: [address] [place] [address] Performed By: #### 5 7021-8 ####[facility] NORTHLIA [id number] [place] [address] [place] Neutrophils (Bld) [#/Vol] 4.51 10*3/uL Normal 1.45-7.50 [facility] Comment on above: Order Comment: Speci men Type: BLOOD SPECIMENOrdering Facility: [facility] Address: [address] [place] [address] Performed By: #### 5 7021-8 ####[facility]OSPITALNCLIA [id number] [place] [address] [place] Neutrophils/100 WBC (Bld) 71.1 % Normal [facility] Comment on above: Order Comment: Speci men Type: BLOOD SPECIMENOrdering Facility: [facility] Address: [address] [place] [address] Performed By: #### 5 7021-8 ####[facility]OSPITALNCLIA [id number] [place] [address] [place] Nucleated RBC (Bld) [#/Vol] 10*3/uL Normal <0.01 [facility] Comment on above: Order Comment: Speci men Type: BLOOD SPECIMENOrdering Facility: [facility] Address: [address] [place] [address] Performed By: #### 5 7021-8 ####[facility] [id number] [place] [address] [place] Nucleated RBC/100 WBC (Bld) [Ratio] 0.0 /100 WBC Normal [facility] Comment on above: Order Comment: Speci men Type: BLOOD SPECIMENOrdering Facility: [facility] Address: [address] [place] [address] Performed By: #### 5 7021-8 ####[facility] [id number] [place] [address] [place] Platelet mean volume (Bld) [Entitic vol] 9.5 fL Normal 9.0-12.7 [facility] Comment on above: Order Comment: Speci men Type: BLOOD SPECIMENOrdering Facility: [facility] Address: [address] [place] [address] Performed By: #### 5 7021-8 ####[facility] [id number] [place] [address] [place] Platelets (Bld) [#/Vol] 274 10*3/uL Normal 150-400 [facility] Comment on above: Order Comment: Speci men Type: BLOOD SPECIMENOrdering Facility: [facility] Address: [address] [place] [address] Performed By: #### 5 7021-8 ####[facility] [id number] [place] [address] [place] RBC (Bld) [#/Vol] 3.19 10*6/uL Low 4.20-6.00 [facility] Comment on above: Order Comment: Speci men Type: BLOOD SPECIMENOrdering Facility: [facility] Address: [address] [place] [address] Performed By: #### 5 7021-8 ####[facility] TEDDYBAYARDNCLIA [id number] [place] [address] [place] WBC (Bld) [#/Vol] 6.35 10*3/uL Normal 3.70-11.00 [facility] Comment on above: Order Comment: Speci men Type: BLOOD SPECIMENOrdering Facility: [facility] Address: [address] [place] [address] Performed By: #### 5 7021-8 ####[facility]PITALNCLIA [id number] [place] [address] [place] CEA SerPl-mCncon 07-20-2024 Carcinoembryonic Ag [Mass/Vol] 15.1 ng/mL High <=2.9 [facility] Comment on above: Order Comment: Speci men Type: BLOOD SPECIMENOrdering Facility: [facility] Address: [address] [place] [address] Result Comment: Carc inoembryonic antigen test is used as an aid in monitoring response to treatment or recurrence in patients with established colorectal, breast, lung, prostatic, pancreatic, and ovarian carcinomas. Clinical correlation is required.The Carcinoembryonic antigen test was performed using the [employer] DXI paramagnetic particle chemiluminescent immunoassay method. Results obtained with different assay methods or kits cannot be used interchangeably. Performed By: #### 2 039-6 ####[facility] LABCLIA [id number] [place] [address] [place] CNOVSPon 07-20-2024 CNOVSP Normal [facility] Comprehensive metabolic 2000 panelon 07-20-2024 Albumin [Mass/Vol] 3.6 g/dL Low 3.9-4.9 [facility] Comment on above: Order Comment: Speci men Type: BLOOD SPECIMENOrdering Facility: [facility] Address: [address] [place] [address] Performed By: #### 2 4323-8, 08415-9 ####[facility] CLAU MILLTOWNCLIA [id number] [place] [address] [place] ALP [Catalytic activity/Vol] 91 U/L Normal 38-113 [facility] Comment on above: Order Comment: Speci men Type: BLOOD SPECIMENOrdering Facility: [facility] Address: [address] [place] [address] Performed By: #### 2 4323-8, ####[facility] MILLTOWGIANNALIA [id number] [place] [address] [place] ALT [Catalytic activity/Vol] 5 U/L Low 10-54 [facility] Comment on above: Order Comment: Speci men Type: BLOOD SPECIMENOrdering Facility: [facility] Address: [address] [place] [address] Performed By: #### 2 4323-8, ####[facility] MILLJEFFERYWGIANNALIA [id number] [place] [address] [place] Anion gap [Moles/Vol] 8 mmol/L Normal 8-15 [facility] Comment on above: Order Comment: Speci men Type: BLOOD SPECIMENOrdering Facility: [facility] Address: [address] [place] [address] Performed By: #### 2 4323-8, ####[facility] MILLTOWNCLIA [id number] [place] [address] [place] AST [Catalytic activity/Vol] 12 U/L Low 14-40 [facility] Comment on above: Order Comment: Speci men Type: BLOOD SPECIMENOrdering Facility: [facility] Address: [address] [place] [address] Performed By: #### 2 4323-8, ####[facility] MILLTOWNCLIA [id number] [place] [address] [place] Bilirubin [Mass/Vol] 0.5 mg/dL Normal 0.2-1.3 [facility] Comment on above: Order Comment: Speci men Type: BLOOD SPECIMENOrdering Facility: [facility] Address: [address] [place] [address] Performed By: #### 2 4323-8, ####[facility] MILLTOWNCLIA [id number] [place] [address] [place] Calcium [Mass/Vol] 9.5 mg/dL Normal 8.5-10.2 [facility] Comment on above: Order Comment: Speci men Type: BLOOD SPECIMENOrdering Facility: [facility] Address: [address] [place] [address] Performed By: #### 2 4323-8, ####[facility] G[facility]ENWNCLIA [id number] [place] [address] [place] Chloride [Moles/Vol] 100 mmol/L Normal 98-107 [facility] Comment on above: Order Comment: Speci men Type: BLOOD SPECIMENOrdering Facility: [facility] Address: [address] [place] [address] Performed By: #### 2 4323-8, ####[facility] MILLTOWNCLIA [id number] [place] [address] [place] CO2 [Moles/Vol] 29 mmol/L Normal 22-30 [facility] Comment on above: Order Comment: Speci men Type: BLOOD SPECIMENOrdering Facility: [facility] Address: [address] [place] [address] Performed By: #### 2 4323-8, ####[facility] MILLTOWNCLIA [id number] [place] [address] [place] Creatinine [Mass/Vol] 0.77 mg/dL Normal 0.73-1.22 [facility] Comment on above: Order Comment: Willam robles Type: BLOOD SPECIMENOrdering Facility: [facility] Address: [address] [place] [address] Performed By: #### 2 4323-8, ####[facility] [id number] [place] [address] [place] Creatinine and Glomerular filtration rate.predicted panel (S/P/Bld) 93 mL/min/1.73m??? Normal >=60 [facility] Comment on above: Order Comment: Willam robles Type: BLOOD SPECIMENOrdering Facility: [facility] Address: [address] [place] [address] Result Comment: Rod mated Glomerular Filtration Rate (eGFR) is calculated using the 2020 CKD-EPI creatinine equation. This equation utilizes serum creatinine, sex, and age as parameters. The creatinine assay has traceable calibration to isotope dilution-mass spectrometry. Refer to KDIGO guidelines for clinical interpretation. In patients with unstable renal function, e.g. those with acute kidney injury, the eGFR may not accurately reflect actual GFR. Performed By: #### 2 4323-8, ####[facility] [id number] [place] [address] [place] Glucose [Mass/Vol] 136 mg/dL High 74-99 [facility] Comment on above: Order Comment: Willam robles Type: BLOOD SPECIMENOrdering Facility: [facility] Address: [address] [place] [address] Result Comment: The [place] Diabetes Association (ADA) provides guidance for cutoff values for fasting glucose and random glucose. The ADA defines fasting as no caloric intake for at least 8 hours. Fasting plasma glucose results between 100 to 125 mg/dL indicate increased risk for diabetes (prediabetes).Fasting plasma glucose results greater than or equal to 126 mg/dL meet the criteria for diagnosis of diabetes. In the absence of unequivocal hyperglycemia, results should be confirmed by repeat testing. In a patient with classic symptoms of hyperglycemia or hyperglycemic crisis, random plasma glucose results greater than or equal to 200 mg/dL meet the criteria for diagnosis of diabetes.Reference: Standards of Medical Care in Diabetes 2016, [place] [employer] Association. Diabetes Care. 2016.39(Suppl 1). Performed By: #### 2 4323-8, ####[facility]ITALNCCARLO [id number] [place] [address] [place] Potassium [Moles/Vol] 3.8 mmol/L Normal 3.7-5.1 [facility] Comment on above: Order Comment: Speci men Type: BLOOD SPECIMENOrdering Facility: [facility] Address: [address] [place], [place] [address] Performed By: #### 2 432-8, ####[facility] [id number] [place] [address] [place] Protein [Mass/Vol] 7.6 g/dL Normal 6.3-8.0 [facility] Comment on above: Order Comment: Speci men Type: BLOOD SPECIMENOrdering Facility: [facility] Address: [address] [place], [place] [address] Performed By: #### 2 432-8, ####[facility] [id number] [place] [address] [place] Sodium [Moles/Vol] 137 mmol/L Normal 136-144 [facility] Comment on above: Order Comment: Speci men Type: BLOOD SPECIMENOrdering Facility: [facility] Address: [address] [place] [address] Performed By: #### 2 4323-8, ####[facility]ITALNCLIA [id number] [place] [address] [place] Urea nitrogen [Mass/Vol] 13 mg/dL Normal 9-24 [facility] Comment on above: Order Comment: Speci men Type: BLOOD SPECIMENOrdering Facility: [facility] Address: [address] [place] [address] Performed By: #### 2 4323-8, 41734-7 ####[facility] CLAU BUENOBANG [id number] [place] [address] [place] HbA1c (Bld)on 07-20-2024 Average glucose Estimated from glycated hemoglobin (Bld) [Mass/Vol] 131 mg/dL Normal [facility] Comment on above: Order Comment: Willam robles Type: BLOOD SPECIMENOrdering Facility: [facility] Address: [address] [place] [address] Result Comment: eAG: (Estimated average glucose) is a calculated value from HgbA1c and is parts sales representative of the average blood glucose level in the last 2-3 month period. Performed By: #### 5 5454-3 ####[facility] LABCLIA [id number] [place] [address] [place] HbA1c (Bld) [Mass fraction] 6.2 % High 4.3-5.6 [facility] Comment on above: Order Comment: Willam robles Type: BLOOD SPECIMENOrdering Facility: [facility] Address: [address] [place] [address] Result Comment: Elizabeth [place] Diabetes Association guidelines indicate that patients with HgbA1c in the range 5.7-6.4% are at increased risk for development of diabetes, and intervention by lifestyle modification may be beneficial. HgbA1c greater or equal to 6.5% is considered diagnostic of diabetes. Performed By: #### 5 5454-3 ####[facility] LABCLIA [id number] [place] [address] [place] Magnesium SerPl-mCncon 07-20 Magnesium [Mass/Vol] 1.7 mg/dL Normal 1.7-2.3 [facility] Comment on above: Order Comment: Willam [facility] Type: BLOOD SPECIMENOrdering Facility: [facility] Address: [address] [place] [address] Performed By: #### 2 4323-8, 91031-5 ####[facility] [id number] [place] [id number] [place] CNOVon 07-11-2024 CNOV Normal [facility] CBC W Auto Differential pane l (Bld)on 07-06-2024 Anisocytosis Ql (Bld) Present [facility] Basophils (Bld) [#/Vol] 0.00 10*3/uL [facility] Basophils/100 WBC (Bld) 0.0 % [facility] Dacrocytes LM Ql (Bld) Few [facility] Differential cell count method Nom (Bld) Manual [facility] Eosinophils (Bld) [#/Vol] 0.05 10*3/uL [facility] Eosinophils/100 WBC (Bld) 3.0 % [facility] Erythrocyte distribution width (RBC) [Ratio] 22.6 % High 11.5 - 15.0 % [facility] Hematocrit (Bld) [Volume fraction] 27.3 % Low 39.0 - 51.0 % [facility] Hemoglobin (Bld) [Mass/Vol] 8.3 g/dL Low 13.0 - 17.0 g/dL [facility] Interpretation and review of laboratory results Abnormal [facility] Lymphocytes (Bld) [#/Vol] 0.64 10*3/uL Low [facility] Lymphocytes/100 WBC (Bld) 39.0 % [facility] MCH (RBC) [Entitic mass] 28.8 pg 26.0 - 34.0 pg [facility] MCHC (RBC) [Mass/Vol] 30.4 g/dL Low 30.5 - 36.0 g/dL [facility] MCV (RBC) [Entitic vol] 94.8 fL 80.0 - 100.0 fL [facility] Monocytes (Bld) [#/Vol] 0.33 10*3/uL [facility] Monocytes/100 WBC (Bld) 20.0 % [facility] Neutrophils (Bld) [#/Vol] 0.63 10*3/uL Low [facility] Neutrophils/100 WBC (Bld) 38.0 % [facility] Nucleated RBC (Bld) [#/Vol] 0.02 10*3/uL High NINF [facility] Nucleated RBC/100 WBC (Bld) [Ratio] 1.0 % /100 WBC [facility] Ovalocytes LM Ql (Bld) Few [facility] Platelet mean volume (Bld) [Entitic vol] 10.4 fL 9.0 - 12.7 fL [facility] Platelets (Bld) [#/Vol] 223 10*3/uL [facility] Comment on above: No clot detected. Platelets Estimate (Bld) [#/Vol] Adequate [facility] Polychromasia LM Ql (Bld) Slight [facility] RBC (Bld) [#/Vol] 2.88 10*6/uL Low 4.20 - 6.0 0 m/uL [facility] Red Cell Morph Reviewed: see result s of individual morphologies [facility] WBC (Bld) [#/Vol] 1.65 10*3/uL Low [facility] This is an appended report. These results have been appended to a previously verified report. [facility] Anisocytosis Ql (Bld) Present Normal [facility] Comment on above: Order Comment: Speci men Type: BLOOD SPECIMENOrdering Facility: [facility] Address: [address] [place] [address] Performed By: #### 5 7021-8 ####[facility] [id number] [address] LABORATORYCLIA [id number] [place] [address] [place] [facility] Basophils (Bld) [#/Vol] 0.00 10*3/uL Normal <0.11 [facility] Comment on above: Order Comment: Speci men Type: BLOOD SPECIMENOrdering Facility: [facility] Address: [address] [place] [address] Performed By: #### 5 7021-8 ####[facility] [id number] [address] LABORATORYCLIA [id number] [address] [place] Basophils/100 WBC (Bld) 0.0 % Normal [facility] Comment on above: Order Comment: Speci men Type: BLOOD SPECIMENOrdering Facility: [facility] Address: [address] [place] [address] Performed By: #### 5 7021-8 ####[facility] H[facility]PITALTOWNCLIA [id number] [address] LABORATORYCLIA [id number] [address] Dacrocytes LM Ql (Bld) Few Normal [facility] Comment on above: Order Comment: Speci men Type: BLOOD SPECIMENOrdering Facility: [facility] Address: [address] [place] [address] Performed By: #### 5 7021-8 ####[facility] [id number] [address] LABORATORYCLIA [id number] [address] STATES [facility] Differential cell count method Nom (Bld) Manual Normal [facility] Comment on above: Order Comment: Speci men Type: BLOOD SPECIMENOrdering Facility: [facility] Address: [address] [place] [address] Performed By: #### 5 7021-8 ####[facility] NORTHLIA [id number] [address] LABORATORYCLIA [id number] [place] [address] [place] Eosinophils (Bld) [#/Vol] 0.05 10*3/uL Normal <0.46 [facility] Comment on above: Order Comment: Speci men Type: BLOOD SPECIMENOrdering Facility: [facility] Address: [address] [place] [address] Performed By: #### 5 7021-8 ####[facility] MILLTOWNCLIA [id number] [address] LABORATORYCLIA [id number] [place] [address] [place] Eosinophils/100 WBC (Bld) 3.0 % Normal [facility] Comment on above: Order Comment: Speci men Type: BLOOD SPECIMENOrdering Facility: [facility] Address: [address] [place] [address] Performed By: #### 5 7021-8 ####[facility]ENWNCLIA [id number] [address] LABORATORYIA [id number] [place] [address] [place] Erythrocyte distribution width (RBC) [Ratio] 22.6 % High 11.5-15.0 [facility] Comment on above: Order Comment: Speci men Type: BLOOD SPECIMENOrdering Facility: [facility] Address: [address] [place] [address] Performed By: #### 5 7021-8 ####[facility] NORTHLIA [id number] [address] LABORATORYCLIA [id number] [place] [address] [place] Hematocrit (Bld) [Volume fraction] 27.3 % Low 39.0-51.0 [facility] Comment on above: Order Comment: Speci men Type: BLOOD SPECIMENOrdering Facility: [facility] Address: [address] [place] [address] Performed By: #### 5 7021-8 ####[facility]ENWNCLIA [id number] [address] LABORATORYIA [id number] [place] [address] [place] Hemoglobin (Bld) [Mass/Vol] 8.3 g/dL Low 13.0-17.0 [facility] Comment on above: Order Comment: Speci men Type: BLOOD SPECIMENOrdering Facility: [facility] Address: [address] [place] [address] Performed By: #### 5 7021-8 ####[facility] HOSPITALTOWNCLIA [id number] [address] LABORATORYCLIA [id number] [place] [address] [place] Lymphocytes (Bld) [#/Vol] 0.64 10*3/uL Low 1.00-4.00 [facility] Comment on above: Order Comment: Speci men Type: BLOOD SPECIMENOrdering Facility: [facility] Address: [address] [place] [address] Performed By: #### 5 7021-8 ####[facility] [id number] [address] LABORATORYCLIA [id number] [address] [place] Lymphocytes/100 WBC (Bld) 39.0 % Normal [facility] Comment on above: Order Comment: Speci men Type: BLOOD SPECIMENOrdering Facility: [facility] Address: [address] [place] [address] Performed By: #### 5 7021-8 ####[facility] NORTHLIA [id number] [address] LABORATORYCLIA [id number] [place] [address] [place] MCH (RBC) [Entitic mass] 28.8 pg Normal 26.0-34.0 [facility] Comment on above: Order Comment: Speci men Type: BLOOD SPECIMENOrdering Facility: [facility] Address: [address] [place] [address] Performed By: #### 5 7021-8 ####[facility] MILLTOWNCLIA [id number] [address] LABORATORYCLIA [id number] [address] MCHC (RBC) [Mass/Vol] 30.4 g/dL Low 30.5-36.0 [facility] Comment on above: Order Comment: Speci men Type: BLOOD SPECIMENOrdering Facility: [facility] Address: [address] [place] [address] Performed By: #### 5 7021-8 ####[facility]ITALNCLIA [id number] [address] LABORATORYCLIA [id number] [address] MCV (RBC) [Entitic vol] 94.8 fL Normal 80.0-100.0 [facility] Comment on above: Order Comment: Speci men Type: BLOOD SPECIMENOrdering Facility: [facility] Address: [address] [place] [address] Performed By: #### 5 7021-8 ####[facility]ENWNCLIA [id number] [address] LABORATORYCLIA [id number] [address] Monocytes (Bld) [#/Vol] 0.33 10*3/uL Normal <0.87 [facility] Comment on above: Order Comment: Speci men Type: BLOOD SPECIMENOrdering Facility: [facility] Address: [address] [place] [address] Performed By: #### 5 7021-8 ####[facility]ENWNCLIA [id number] [address] [facility] LABORATORYCLIA [id number] [place] [address] [place] Monocytes/100 WBC (Bld) 20.0 % Normal [facility] Comment on above: Order Comment: Speci men Type: BLOOD SPECIMENOrdering Facility: [facility] Address: [address] [place] [address] Performed By: #### 5 7021-8 ####[facility] MILLTOWNCLIA [id number] [address] LABORATORYCLIA [id number] [place] [address] [place] Neutrophils (Bld) [#/Vol] 0.63 10*3/uL Low 1.45-7.50 [facility] Comment on above: Order Comment: Speci men Type: BLOOD SPECIMENOrdering Facility: [facility] Address: [address] [place] [address] Performed By: #### 5 7021-8 ####[facility] H[facility]PITALTOWNCLIA [id number] [address] LABORATORYCLIA [id number] [place] [address] [place] Neutrophils/100 WBC (Bld) 38.0 % Normal [facility] Comment on above: Order Comment: Speci men Type: BLOOD SPECIMENOrdering Facility: [facility] Address: [address] [place] [address] Performed By: #### 5 7021-8 ####[facility] MILLTOWNCLIA [id number] [address] LABORATORYCLIA [id number] [place] [address] [place] Nucleated RBC (Bld) [#/Vol] 0.02 10*3/uL High <0.01 [facility] Comment on above: Order Comment: Speci men Type: BLOOD SPECIMENOrdering Facility: [facility] Address: [address] [place] [address] Performed By: #### 5 7021-8 ####[facility] TEDDYJEFFERYWGIANNALIA [id number] [address] LABORATORYCLIA [id number] [address] STATES [facility] Nucleated RBC/100 WBC (Bld) [Ratio] 1.0 /100 WBC Normal [facility] Comment on above: Order Comment: Speci men Type: BLOOD SPECIMENOrdering Facility: [facility] Address: [address] [place] [address] Performed By: #### 5 7021-8 ####[facility]ITALNCLIA [id number] [address] LABORATORYCLIA [id number] [address] OF [place] Ovalocytes LM Ql (Bld) Few Normal [facility] Comment on above: Order Comment: Speci men Type: BLOOD SPECIMENOrdering Facility: [facility] Address: [address] [place] [address] Performed By: #### 5 7021-8 ####[facility]ITALNCLIA [id number] [address] LABORATORYCLIA [id number] [address] Platelet mean volume (Bld) [Entitic vol] 10.4 fL Normal 9.0-12.7 [facility] Comment on above: Order Comment: Speci men Type: BLOOD SPECIMENOrdering Facility: [facility] Address: [address] [place] [address] Performed By: #### 5 7021-8 ####[facility] MILLWNCLIA [id number] [address] LABORATORYCLIA [id number] [place] [address] [place] Platelets (Bld) [#/Vol] 223 10*3/uL Normal 150-400 [facility] Comment on above: Order Comment: Speci men Type: BLOOD SPECIMENOrdering Facility: [facility] Address: [address] [place] [address] Result Comment: No c lot detected. Performed By: #### 5 7021-8 ####[facility] G[facility]ENWHILIA [id number] [address] LABORATORYCLIA [id number] [place] [address] [place] Platelets Estimate (Bld) [#/Vol] Adequate Normal [facility] Comment on above: Order Comment: Speci men Type: BLOOD SPECIMENOrdering Facility: [facility] Address: [address] [place] [address] Performed By: #### 5 7021-8 ####[facility] [id number] [address] LABORATORYCLIA [id number] [place] [address] [place] Polychromasia LM Ql (Bld) Slight Normal [facility] Comment on above: Order Comment: Speci men Type: BLOOD SPECIMENOrdering Facility: [facility] Address: [address] [place] [address] Performed By: #### 5 7021-8 ####[facility]ITALNCLIA [id number] [address] LABORATORYCLIA [id number] [place] [address] [place] RBC (Bld) [#/Vol] 2.88 10*6/uL Low 4.20-6.00 [facility] Comment on above: Order Comment: Speci men Type: BLOOD SPECIMENOrdering Facility: [facility] Address: [address] [place] [address] Performed By: #### 5 7021-8 ####[facility] TEDDYTOWNCLIA [id number] [address] LABORATORYCLIA [id number] [place] [address] [place] RED CELL MORPH Reviewed: see result s of individual morphologies Normal [facility] Comment on above: Order Comment: Speci men Type: BLOOD SPECIMENOrdering Facility: [facility] Address: [address] [place] [address] Performed By: #### 5 7021-8 ####[facility] G[facility]ENWNCLIA [id number] [address] LABORATORYCLIA [id number] [place] [address] [place] WBC (Bld) [#/Vol] 1.65 10*3/uL Low 3.70-11.00 [facility] Comment on above: Order Comment: Speci men Type: BLOOD SPECIMENOrdering Facility: [facility] Address: [address] [place] [address] Performed By: #### 5 7021-8 ####[facility]OSPITALNCA [id number] [address] LABORATORYCLIA [id number] [place] [address] [place] CEA SerPl-mCncon 07-06-2024 Carcinoembryonic Ag [Mass/Vol] 19.6 ng/mL High <=2.9 [facility] Comment on above: Order Comment: Speci men Type: BLOOD SPECIMENOrdering Facility: [facility] Address: [address] [place] [address] Result Comment: Carc inoembryonic antigen test is used as an aid in monitoring response to treatment or recurrence in patients with established colorectal, breast, lung, prostatic, pancreatic, and ovarian carcinomas. Clinical correlation is required.The Carcinoembryonic antigen test was performed using the Bryce Iveth [employer] DXI paramagnetic particle chemiluminescent immunoassay method. Results obtained with different assay methods or kits cannot be used interchangeably. Performed By: #### 2 039-6 ####[facility] LABCLIA [id number] [address] [place] CNPNon 07-06-2024 CNPN Normal [facility] metabolic 2000 panelOrdered By: Cody Hurtado on 07-06-2024 Albumin [Mass/Vol] 3.4 g/dL Low 3.9 - 4.9 g/dL [facility] ALP [Catalytic activity/Vol] 95 U/L 38 - 113 U/L [facility] ALT [Catalytic activity/Vol] 5 U/L Low 10 - 54 U/L [facility] Anion gap [Moles/Vol] 9 mmol/L 8 - 15 mmol/L [facility] AST [Catalytic activity/Vol] 10 U/L Low 14 - 40 U/L [facility] Bilirubin [Mass/Vol] 0.5 mg/dL 0.2 - 1 .3 mg/dL [facility] Calcium [Mass/Vol] 9.2 mg/dL 8.5 - 10. 2 mg/dL [facility] Chloride [Moles/Vol] 100 mmol/L 98 - 10 7 mmol/L [facility] CO2 [Moles/Vol] 28 mmol/L 22 - 30 mmol/L [facility] Creatinine [Mass/Vol] 0.82 mg/dL 0.73 - 1.22 mg/dL [facility] GFR/1.73 sq M.predicted among non-blacks MDRD (S/P/Bld) [Vol rate/Area] 91 mL/min/{1.73_m2} - PINF [facility] Comment on above: Estimated Glomerular Filtration Rate (eGFR) is calculated using the 2020 CKD-EPI creatinine equation. This equation utilizes serum creatinine, sex, and age as parameters. The creatinine assay has traceable calibration to isotope dilution-mass spectrometry. Refer to KDIGO guidelines for clinical interpretation. In patients with unstable renal function, e.g. those with acute kidney injury, the eGFR may not accurately reflect actual GFR. Glucose [Mass/Vol] 201 mg/dL High 74 - 99 mg/dL [facility] Comment on above: The [place] Di[employer] Association (ADA) provides guidance for cutoff values for fasting glucose and random glucose. The ADA defines fasting as no caloric intake for at least 8 hours. Fasting plasma glucose results between 100 to 125 mg/dL indicate increased risk for diabetes (prediabetes). Fasting plasma glucose results greater than or equal to 126 mg/dL meet the criteria for diagnosis of diabetes. In the absence of unequivocal hyperglycemia, results should be confirmed by repeat testing. In a patient with classic symptoms of hyperglycemia or hyperglycemic crisis, random plasma glucose results greater than or equal to 200 mg/dL meet the criteria for diagnosis of diabetes. Reference: Standards of Medical Care in Diabetes 2016, [place] [employer]. Diabetes Care. 2016.39(Suppl 1). Potassium [Moles/Vol] 3.7 mmol/L 3.7 - 5.1 mmol/L [facility] Protein [Mass/Vol] 6.7 g/dL 6.3 - 8.0 g/dL [facility] Sodium [Moles/Vol] 137 mmol/L 136 - 144 mmol/L [facility] Urea nitrogen [Mass/Vol] 14 mg/dL 9 - 24 mg/dL [facility] Comprehensive metabolic 2000 panelon 07-06-2024 Albumin [Mass/Vol] 3.4 g/dL Low 3.9-4.9 [facility] Comment on above: Order Comment: Speci men Type: BLOOD SPECIMENOrdering Facility: [facility] Address: [address] [place] [address] Performed By: #### 1 9123-9, ####[facility] [id number] [place] [address] [place] ALP [Catalytic activity/Vol] 95 U/L Normal 38-113 [facility] Comment on above: Order Comment: Speci men Type: BLOOD SPECIMENOrdering Facility: [facility] Address: [address] [place] [address] Performed By: #### 1 9123-9, ####[facility]ENWNCLIA [id number] [place] [address] [place] ALT [Catalytic activity/Vol] 5 U/L Low 10-54 [facility] Comment on above: Order Comment: Speci men Type: BLOOD SPECIMENOrdering Facility: [facility] Address: [address] [place] [address] Performed By: #### 1 9123-9, 31343-5 ####[facility] MILLTOWNCLIA [id number] [place] [address] [place] Anion gap [Moles/Vol] 9 mmol/L Normal 8-15 [facility] Comment on above: Order Comment: Speci men Type: BLOOD SPECIMENOrdering Facility: [facility] Address: [address] [place] [address] Performed By: #### 1 9123-9, 52694-1 ####[facility] GARDENWGIANNALIA [id number] [place] [address] [place] AST [Catalytic activity/Vol] 10 U/L Low 14-40 [facility] Comment on above: Order Comment: Speci men Type: BLOOD SPECIMENOrdering Facility: [facility] Address: [address] [place] [address] Performed By: #### 1 9123-9, 28033-0 ####[facility] HOSPITALGIANNALIA [id number] [place] [address] [place] Bilirubin [Mass/Vol] 0.5 mg/dL Normal 0.2-1.3 [facility] Comment on above: Order Comment: Speci men Type: BLOOD SPECIMENOrdering Facility: [facility] Address: [address] [place] [address] Performed By: #### 1 9123-9, 89225-6 ####[facility]ITALNCLIA [id number] [place] [address] [place] Calcium [Mass/Vol] 9.2 mg/dL Normal 8.5-10.2 [facility] Comment on above: Order Comment: Speci men Type: BLOOD SPECIMENOrdering Facility: [facility] Address: [address] [place] [address] Performed By: #### 1 9123-9, 39221-6 ####[facility] CLAU MILLWNCLIA [id number] [place] [address] [place] Chloride [Moles/Vol] 100 mmol/L Normal 98-107 [facility] Comment on above: Order Comment: Speci men Type: BLOOD SPECIMENOrdering Facility: [facility] Address: [address] [place] [address] Performed By: #### 1 9123-9, 08238-3 ####[facility]ENWNCLIA [id number] [place] [address] [place] CO2 [Moles/Vol] 28 mmol/L Normal 22-30 [facility] Comment on above: Order Comment: Speci men Type: BLOOD SPECIMENOrdering Facility: [facility] Address: [address] [place] [address] Performed By: #### 1 9123-9, 19445-4 ####[facility]ITALNCLIA [id number] [place] [address] [place] Creatinine [Mass/Vol] 0.82 mg/dL Normal 0.73-1.22 [facility] Comment on above: Order Comment: Speci men Type: BLOOD SPECIMENOrdering Facility: [facility] Address: [address] [place] [address] Performed By: #### 1 9123-9, 90202-1 ####[facility] MILLTOWNCLIA [id number] [place] [address] [place] Creatinine and Glomerular filtration rate.predicted panel (S/P/Bld) 91 mL/min/1.73m??? Normal >=60 [facility] Comment on above: Order Comment: Willam robles Type: BLOOD SPECIMENOrdering Facility: [facility] Address: [address] [place] [address] Result Comment: Rod mated Glomerular Filtration Rate (eGFR) is calculated using the 2020 CKD-EPI creatinine equation. This equation utilizes serum creatinine, sex, and age as parameters. The creatinine assay has traceable calibration to isotope dilution-mass spectrometry. Refer to KDIGO guidelines for clinical interpretation. In patients with unstable renal function, e.g. those with acute kidney injury, the eGFR may not accurately reflect actual GFR. Performed By: #### 1 9123-9, 25304-7 ####[facility] [id number] [place] [address] [place] Glucose [Mass/Vol] 201 mg/dL High 74-99 [facility] Comment on above: Order Comment: Willam robles Type: BLOOD SPECIMENOrdering Facility: [facility] Address: [address] [place] [address] Result Comment: The [place] Diabetes Association (ADA) provides guidance for cutoff values for fasting glucose and random glucose. The ADA defines fasting as no caloric intake for at least 8 hours. Fasting plasma glucose results between 100 to 125 mg/dL indicate increased risk for diabetes (prediabetes).Fasting plasma glucose results greater than or equal to 126 mg/dL meet the criteria for diagnosis of diabetes. In the absence of unequivocal hyperglycemia, results should be confirmed by repeat testing. In a patient with classic symptoms of hyperglycemia or hyperglycemic crisis, random plasma glucose results greater than or equal to 200 mg/dL meet the criteria for diagnosis of diabetes.Reference: Standards of Medical Care in Diabetes 2016, [place] [employer]. Diabetes Care. 2016.39(Suppl 1). Performed By: #### 1 9123-9, 16712-9 ####[facility] [id number] [place] [address] [place] Potassium [Moles/Vol] 3.7 mmol/L Normal 3.7-5.1 [facility] Comment on above: Order Comment: Speci men Type: BLOOD SPECIMENOrdering Facility: [facility] Address: [address] [place], [place] [address] Performed By: #### 1 9123-9, 67347-3 ####[facility] CLAU TEDDYRYAN [id number] [place] [address] [place] Protein [Mass/Vol] 6.7 g/dL Normal 6.3-8.0 [facility] Comment on above: Order Comment: Speci men Type: BLOOD SPECIMENOrdering Facility: [facility] Address: [address] [place] [address] Performed By: #### 1 9123-9, 25382-0 ####[facility] CLAU ANGEL [id number] [place] [address] [place] Sodium [Moles/Vol] 137 mmol/L Normal 136-144 [facility] Comment on above: Order Comment: Speci men Type: BLOOD SPECIMENOrdering Facility: [facility] Address: [address] [place] [address] Performed By: #### 1 9123-9, 53497-6 ####[facility] CLAU ANGEL [id number] [place] [address] [place] Urea nitrogen [Mass/Vol] 14 mg/dL Normal 9-24 [facility] Comment on above: Order Comment: Speci men Type: BLOOD SPECIMENOrdering Facility: [facility] Address: [address] [place] [address] Performed By: #### 1 9123-9, 53115-2 ####[facility] NAALIA [id number] [place] [address] [place] MAGNESIUMon 07-06-2024 Magnesium [Mass/Vol] 1.2 mg/dL Low 1.7 - 2 .3 mg/dL [facility] Magnesium SerPl-mCncon 07-06 Magnesium [Mass/Vol] 1.2 mg/dL Low 1.7-2.3 [facility] Comment on above: Order Comment: Speci men Type: BLOOD SPECIMENOrdering Facility: [facility] Address: [place] [address] Performed By: #### 1 9123-9, 49218-2 ####[facility] [id number] [address] [place] No Panel InformationOrdered By: Cody Hurtado on 07-06-2024 Interpretation and review of laboratory results Abnormal [facility] UA DIP, URINE (POC)on 2024 BILIRUBIN UA (POCT) Negative Negative [facility] CLARITY UA (POCT) Clear [facility] COLOR UA (POCT) Yellow [facility] GLUCOSE UA (POCT) Negative Negative mg/dL [facility] Hemoglobin Ql (U) Negative Negative [facility] Interpretation and review of laboratory results Abnormal [facility] KETONE UA (POCT) Negative Negative mg/dL [facility] LEUKOCYTES UA (POCT) Negative Negative [facility] NITRITE UA (POCT) Negative Negative [facility] PH UA (POCT) 6.5 4.5 - 8.0 [facility] Protein Ql (U) 30 mg/dL Abnormal Negative [facility] SPECIFIC GRAVITY UA (POCT) 1.020 1.005 - 1.030 [facility] UROBILINOGEN UA (POCT) 1.0 Normal E.U./dL [facility] Location:[facility], [address] [place], [place], [address] [place] [address] POINT OF CARE [facility] CNPNon 06-30-2024 CNPN Normal [facility] CNOVon 06-28-2024 CNOV Normal [facility] COVID AND INFLUENZA A/B AND RSV PCR, ROUTINEon 06-28-2024 SARS-CoV-2 (COVID-19) RNA ROYCE+probe Ql (Unsp spec) SARS-COV-2 (AGENT OF COVID-19) RNA: Detected INFLUENZA A RNA: Not detected INFLUENZA B RNA: Not detected RESPIRATORY SYNCYTIAL VIRUS (RSV) RNA: Not detected Abnormal [facility] Comment on above: Performed By: #### C VFLRS ####[facility] LABCLIA [id number] [place] [address] [place] STREP A MOLECULAR (POC)on Procedural Control Valid [facility] Strep A (POCT) Negative Negative [facility] CBC W Auto Differential pane l (Bld)on 06-21-2024 Basophils (Bld) [#/Vol] [facility] Basophils/100 WBC (Bld) 0.3 % [facility] Differential cell count method Nom (Bld) Auto [facility] Eosinophils (Bld) [#/Vol] 0.04 10*3/uL [facility] Eosinophils/100 WBC (Bld) 1.2 % [facility] Erythrocyte distribution width (RBC) [Ratio] 21.4 % High 11.5 - 15.0 % [facility] Hematocrit (Bld) [Volume fraction] 27.8 % Low 39.0 - 51.0 % [facility] Hemoglobin (Bld) [Mass/Vol] 8.7 g/dL Low 13.0 - 17.0 g/dL [facility] Immature granulocytes (Bld) [#/Vol] [facility] Immature granulocytes/100 WBC (Bld) 0.3 % [facility] Interpretation and review of laboratory results Abnormal [facility] Lymphocytes (Bld) [#/Vol] 0.73 10*3/uL Low [facility] Lymphocytes/100 WBC (Bld) 21.8 % [facility] MCH (RBC) [Entitic mass] 29.1 pg 26.0 - 34.0 pg [facility] MCHC (RBC) [Mass/Vol] 31.3 g/dL 30.5 - 36.0 g/dL [facility] MCV (RBC) [Entitic vol] 93.0 fL 80.0 - 100.0 fL [facility] Monocytes (Bld) [#/Vol] 0.35 10*3/uL [facility] Monocytes/100 WBC (Bld) 10.4 % [facility] Neutrophils (Bld) [#/Vol] 2.21 10*3/uL [facility] Neutrophils/100 WBC (Bld) 66.0 % [facility] Nucleated RBC (Bld) [#/Vol] [facility] Nucleated RBC/100 WBC (Bld) [Ratio] 0.0 % /100 WBC [facility] Platelet mean volume (Bld) [Entitic vol] 9.1 fL 9.0 - 12.7 fL [facility] Platelets (Bld) [#/Vol] 88 10*3/uL Low [facility] Comment on above: No clot detected. RBC (Bld) [#/Vol] 2.99 10*6/uL Low 4.20 - 6.0 0 m/uL [facility] WBC (Bld) [#/Vol] 3.35 10*3/uL Low [facility] Basophils (Bld) [#/Vol] 10*3/uL Normal <0.11 [facility] Comment on above: Order Comment: Speci men Type: BLOOD SPECIMENOrdering Facility: [facility] Address: [address] [place] [address] Performed By: #### 5 7021-8 ####[facility] [id number] [place] [address] [place] Basophils/100 WBC (Bld) 0.3 % Normal [facility] Comment on above: Order Comment: Speci men Type: BLOOD SPECIMENOrdering Facility: [facility] Address: [address] [place] [address] Performed By: #### 5 7021-8 ####[facility] [id number] [place] [address] [place] Differential cell count method Nom (Bld) Auto Normal [facility] Comment on above: Order Comment: Speci men Type: BLOOD SPECIMENOrdering Facility: [facility] Address: [address] [place] [address] Performed By: #### 5 7021-8 ####[facility] [id number] [place] [address] [place] Eosinophils (Bld) [#/Vol] 0.04 10*3/uL Normal <0.46 [facility] Comment on above: Order Comment: Speci men Type: BLOOD SPECIMENOrdering Facility: [facility] Address: [address] [place] [address] Performed By: #### 5 7021-8 ####[facility] TEDDYGANESH [id number] [place] [address] [place] Eosinophils/100 WBC (Bld) 1.2 % Normal [facility] Comment on above: Order Comment: Speci men Type: BLOOD SPECIMENOrdering Facility: [facility] Address: [address] [place] [address] Performed By: #### 5 7021-8 ####[facility] HOSPITALNCBECKYMckenna [id number] [place] [address] [place] Erythrocyte distribution width (RBC) [Ratio] 21.4 % High 11.5-15.0 [facility] Comment on above: Order Comment: Speci men Type: BLOOD SPECIMENOrdering Facility: [facility] Address: [address] [place] [address] Performed By: #### 5 7021-8 ####[facility]ITALNCLIA [id number] [place] [address] [place] Hematocrit (Bld) [Volume fraction] 27.8 % Low 39.0-51.0 [facility] Comment on above: Order Comment: Speci men Type: BLOOD SPECIMENOrdering Facility: [facility] Address: [address] [place] [address] Performed By: #### 5 7021-8 ####[facility]ITALNCLIA [id number] [place] [address] [place] Hemoglobin (Bld) [Mass/Vol] 8.7 g/dL Low 13.0-17.0 [facility] Comment on above: Order Comment: Speci men Type: BLOOD SPECIMENOrdering Facility: [facility] Address: [address] [place] [address] Performed By: #### 5 7021-8 ####[facility] GARDENWNCLIA [id number] [place] [address] [place] Immature granulocytes (Bld) [#/Vol] 10*3/uL Normal <0.10 [facility] Comment on above: Order Comment: Speci men Type: BLOOD SPECIMENOrdering Facility: [facility] Address: [address] [place] [address] Performed By: #### 5 7021-8 ####[facility] NORTHLIA [id number] [place] [address] [place] Immature granulocytes/100 WBC (Bld) 0.3 % Normal [facility] Comment on above: Order Comment: Speci men Type: BLOOD SPECIMENOrdering Facility: [facility] Address: [address] [place] [address] Performed By: #### 5 7021-8 ####[facility]ITALA [id number] [place] [address] [place] Lymphocytes (Bld) [#/Vol] 0.73 10*3/uL Low 1.00-4.00 [facility] Comment on above: Order Comment: Speci men Type: BLOOD SPECIMENOrdering Facility: [facility] Address: [address] [place] [address] Performed By: #### 5 7021-8 ####[facility]ITALA [id number] [place] [address] [place] Lymphocytes/100 WBC (Bld) 21.8 % Normal [facility] Comment on above: Order Comment: Speci men Type: BLOOD SPECIMENOrdering Facility: [facility] Address: [address] [place] [address] Performed By: #### 5 7021-8 ####[facility] [id number] [place] [address] [place] MCH (RBC) [Entitic mass] 29.1 pg Normal 26.0-34.0 [facility] Comment on above: Order Comment: Speci men Type: BLOOD SPECIMENOrdering Facility: [facility] Address: [address] [place] [address] Performed By: #### 5 7021-8 ####[facility]NCL[facility] [id number] [place] [address] [place] MCHC (RBC) [Mass/Vol] 31.3 g/dL Normal 30.5-36.0 [facility] Comment on above: Order Comment: Speci men Type: BLOOD SPECIMENOrdering Facility: [facility] Address: [address] [place], [place] [address] Performed By: #### 5 7021-8 ####[facility]NCL[facility] [id number] [place] [address] [place] MCV (RBC) [Entitic vol] 93.0 fL Normal 80.0-100.0 [facility] Comment on above: Order Comment: Speci men Type: BLOOD SPECIMENOrdering Facility: [facility] Address: [address] [place] [address] Performed By: #### 5 7021-8 ####[facility] [id number] [place] [address] [place] Monocytes (Bld) [#/Vol] 0.35 10*3/uL Normal <0.87 [facility] Comment on above: Order Comment: Speci men Type: BLOOD SPECIMENOrdering Facility: [facility] Address: [address] [place] [address] Performed By: #### 5 7021-8 ####[facility] [id number] [place] [address] [place] Monocytes/100 WBC (Bld) 10.4 % Normal [facility] Comment on above: Order Comment: Speci men Type: BLOOD SPECIMENOrdering Facility: [facility] Address: [address] [place] [address] Performed By: #### 5 7021-8 ####[facility] TEDDYTOWNCLIA [id number] [place] [address] [place] Neutrophils (Bld) [#/Vol] 2.21 10*3/uL Normal 1.45-7.50 [facility] Comment on above: Order Comment: Speci men Type: BLOOD SPECIMENOrdering Facility: [facility] Address: [address] [place] [address] Performed By: #### 5 7021-8 ####[facility] MILLWNCLIA [id number] [place] [address] [place] Neutrophils/100 WBC (Bld) 66.0 % Normal [facility] Comment on above: Order Comment: Speci men Type: BLOOD SPECIMENOrdering Facility: [facility] Address: [address] [place] [address] Performed By: #### 5 7021-8 ####[facility] TEDDYWNCLIA [id number] [place] [address] [place] Nucleated RBC (Bld) [#/Vol] 10*3/uL Normal <0.01 [facility] Comment on above: Order Comment: Speci men Type: BLOOD SPECIMENOrdering Facility: [facility] Address: [address] [place] [address] Performed By: #### 5 7021-8 ####[facility] MILLWNCLIA [id number] [place] [address] [place] Nucleated RBC/100 WBC (Bld) [Ratio] 0.0 /100 WBC Normal [facility] Comment on above: Order Comment: Speci men Type: BLOOD SPECIMENOrdering Facility: [facility] Address: [address] [place] [address] Performed By: #### 5 7021-8 ####[facility]OSPITALGIANNALIA [id number] [place] [address] [place] Platelet mean volume (Bld) [Entitic vol] 9.1 fL Normal 9.0-12.7 [facility] Comment on above: Order Comment: Speci men Type: BLOOD SPECIMENOrdering Facility: [facility] Address: [address] [place] [address] Performed By: #### 5 7021-8 ####[facility]ITALNCLIA [id number] [place] [address] [place] Platelets (Bld) [#/Vol] 88 10*3/uL Low 150-400 [facility] Comment on above: Order Comment: Speci men Type: BLOOD SPECIMENOrdering Facility: [facility] Address: [address] [place] [address] Result Comment: No c lot detected. Performed By: #### 5 7021-8 ####[facility]A [id number] [place] [address] [place] RBC (Bld) [#/Vol] 2.99 10*6/uL Low 4.20-6.00 [facility] Comment on above: Order Comment: Speci men Type: BLOOD SPECIMENOrdering Facility: [facility] Address: [address] [place] [address] Performed By: #### 5 7021-8 ####[facility] NORTHLIA [id number] [place] [address] [place] WBC (Bld) [#/Vol] 3.35 10*3/uL Low 3.70-11.00 [facility] Comment on above: Order Comment: Speci men Type: BLOOD SPECIMENOrdering Facility: [facility] Address: [address] [place] [address] Performed By: #### 5 7021-8 ####[facility]ITALNCLIA [id number] [place] [address] [place] CEA SerPl-mCncon 06-21-2024 Carcinoembryonic Ag [Mass/Vol] 26.3 ng/mL High <=2.9 [facility] Comment on above: Order Comment: Speci men Type: BLOOD SPECIMENOrdering Facility: [facility] Address: [address] [place] [address] Result Comment: Carc inoembryonic antigen test is used as an aid in monitoring response to treatment or recurrence in patients with established colorectal, breast, lung, prostatic, pancreatic, and ovarian carcinomas. Clinical correlation is required.The Carcinoembryonic antigen test was performed using the Bry[employer] Unicel DXI paramagnetic particle chemiluminescent immunoassay method. Results obtained with different assay methods or kits cannot be used interchangeably. Performed By: #### 2 039-6 ####[facility] LABCLIA [id number] [place] [address] [place] CNOVSPon 06-21-2024 CNOVSP Normal [facility] Comprehensive metabolic 2000 panelOrdered By: Cody Hurtado on 06-21-2024 Albumin [Mass/Vol] 3.5 g/dL Low 3.9 - 4.9 g/dL [facility] ALP [Catalytic activity/Vol] 71 U/L 38 - 113 U/L [facility] ALT [Catalytic activity/Vol] 8 U/L Low 10 - 54 U/L [facility] Anion gap [Moles/Vol] 8 mmol/L 8 - 15 mmol/L [facility] AST [Catalytic activity/Vol] 14 U/L 14 - 40 U/L [facility] Bilirubin [Mass/Vol] 0.8 mg/dL 0.2 - 1 .3 mg/dL [facility] Calcium [Mass/Vol] 8.5 mg/dL 8.5 - 10. 2 mg/dL [facility] Chloride [Moles/Vol] 102 mmol/L 98 - 10 7 mmol/L [facility] CO2 [Moles/Vol] 26 mmol/L 22 - 30 mmol/L [facility] Creatinine [Mass/Vol] 0.89 mg/dL 0.73 - 1.22 mg/dL [facility] GFR/1.73 sq M.predicted among non-blacks MDRD (S/P/Bld) [Vol rate/Area] 89 mL/min/{1.73_m2} - PINF [facility] Comment on above: Estimated Glomerular Filtration Rate (eGFR) is calculated using the 2020 CKD-EPI creatinine equation. This equation utilizes serum creatinine, sex, and age as parameters. The creatinine assay has traceable calibration to isotope dilution-mass spectrometry. Refer to KDIGO guidelines for clinical interpretation. In patients with unstable renal function, e.g. those with acute kidney injury, the eGFR may not accurately reflect actual GFR. Glucose [Mass/Vol] 162 mg/dL High 74 - 99 mg/dL [facility] Comment on above: The [place] Di[employer] Association (ADA) provides guidance for cutoff values for fasting glucose and random glucose. The ADA defines fasting as no caloric intake for at least 8 hours. Fasting plasma glucose results between 100 to 125 mg/dL indicate increased risk for diabetes (prediabetes). Fasting plasma glucose results greater than or equal to 126 mg/dL meet the criteria for diagnosis of diabetes. In the absence of unequivocal hyperglycemia, results should be confirmed by repeat testing. In a patient with classic symptoms of hyperglycemia or hyperglycemic crisis, random plasma glucose results greater than or equal to 200 mg/dL meet the criteria for diagnosis of diabetes. Reference: Standards of Medical Care in Diabetes 2016, [place] [employer]. Diabetes Care. 2016.39(Suppl 1). Potassium [Moles/Vol] 3.5 mmol/L Low 3.7 - 5.1 mmol/L [facility] Protein [Mass/Vol] 6.3 g/dL 6.3 - 8.0 g/dL [facility] Sodium [Moles/Vol] 136 mmol/L 136 - 144 mmol/L [facility] Urea nitrogen [Mass/Vol] 20 mg/dL 9 - 24 mg/dL [facility] Comprehensive metabolic 2000 panelon 06-21-2024 Albumin [Mass/Vol] 3.5 g/dL Low 3.9-4.9 [facility] Comment on above: Order Comment: Speci men Type: BLOOD SPECIMENOrdering Facility: [facility] Address: [address] [place], [place] [address] [id number] Performed By: #### 1 9123-9, 93383-0 ####[facility] HOSPITALMckenna [id number] [place] [address] [place] ALP [Catalytic activity/Vol] 71 U/L Normal 38-113 [facility] Comment on above: Order Comment: Speci men Type: BLOOD SPECIMENOrdering Facility: [facility] Address: [address] [place] [address] Performed By: #### 1 9123-9, 01631-5 ####[facility] MILLTOWNCLIA [id number] [place] [address] [place] ALT [Catalytic activity/Vol] 8 U/L Low 10-54 [facility] Comment on above: Order Comment: Speci men Type: BLOOD SPECIMENOrdering Facility: [facility] Address: [address] [place] [address] Performed By: #### 1 9123-9, 79725-3 ####[facility] HOSPITALGIANNALIA [id number] [place] [address] [place] Anion gap [Moles/Vol] 8 mmol/L Normal 8-15 [facility] Comment on above: Order Comment: Speci men Type: BLOOD SPECIMENOrdering Facility: [facility] Address: [address] [place] [address] Performed By: #### 1 9123-9, 78118-7 ####[facility] GARDENWGIANNALIA [id number] [place] [address] [place] AST [Catalytic activity/Vol] 14 U/L Normal 14-40 [facility] Comment on above: Order Comment: Speci men Type: BLOOD SPECIMENOrdering Facility: [facility] Address: [address] [place] [address] Performed By: #### 1 9123-9, 02924-0 ####[facility]OSPITALNCLIA [id number] [place] [address] [place] Bilirubin [Mass/Vol] 0.8 mg/dL Normal 0.2-1.3 [facility] Comment on above: Order Comment: Speci men Type: BLOOD SPECIMENOrdering Facility: [facility] Address: [address] [place] [address] Performed By: #### 1 9123-9, 81021-7 ####[facility] NORTHLIA [id number] [place] [address] [place] Calcium [Mass/Vol] 8.5 mg/dL Normal 8.5-10.2 [facility] Comment on above: Order Comment: Speci men Type: BLOOD SPECIMENOrdering Facility: [facility] Address: [address] [place] [address] Performed By: #### 1 9123-9, 71577-3 ####[facility] [id number] [place] [address] [place] Chloride [Moles/Vol] 102 mmol/L Normal 98-107 [facility] Comment on above: Order Comment: Speci men Type: BLOOD SPECIMENOrdering Facility: [facility] Address: [address] [place] [address] Performed By: #### 1 9123-9, 95043-9 ####[facility] NORTHLIA [id number] [place] [address] [place] CO2 [Moles/Vol] 26 mmol/L Normal 22-30 [facility] Comment on above: Order Comment: Speci men Type: BLOOD SPECIMENOrdering Facility: [facility] Address: [address] [place] [address] Performed By: #### 1 9123-9, 87788-9 ####[facility]ITALA [id number] [place] [address] [place] Creatinine [Mass/Vol] 0.89 mg/dL Normal 0.73-1.22 [facility] Comment on above: Order Comment: Speci men Type: BLOOD SPECIMENOrdering Facility: [facility] Address: [address] [place] [address] Performed By: #### 1 9123-9, 62643-5 ####[facility] [id number] [place] [address] [place] Creatinine and Glomerular filtration rate.predicted panel (S/P/Bld) 89 mL/min/1.73m??? Normal >=60 [facility] Comment on above: Order Comment: Willam robles Type: BLOOD SPECIMENOrdering Facility: [facility] Address: [address] [place] [address] Result Comment: Rod mated Glomerular Filtration Rate (eGFR) is calculated using the 2020 CKD-EPI creatinine equation. This equation utilizes serum creatinine, sex, and age as parameters. The creatinine assay has traceable calibration to isotope dilution-mass spectrometry. Refer to KDIGO guidelines for clinical interpretation. In patients with unstable renal function, e.g. those with acute kidney injury, the eGFR may not accurately reflect actual GFR. Performed By: #### 1 9123-9, 56789-5 ####[facility]ITALA [id number] [place] [address] [place] Glucose [Mass/Vol] 162 mg/dL High 74-99 [facility] Comment on above: Order Comment: Willam robles Type: BLOOD SPECIMENOrdering Facility: [facility] Address: [address] [place] [address] Result Comment: The [place] Diabetes Association (ADA) provides guidance for cutoff values for fasting glucose and random glucose. The ADA defines fasting as no caloric intake for at least 8 hours. Fasting plasma glucose results between 100 to 125 mg/dL indicate increased risk for diabetes (prediabetes).Fasting plasma glucose results greater than or equal to 126 mg/dL meet the criteria for diagnosis of diabetes. In the absence of unequivocal hyperglycemia, results should be confirmed by repeat testing. In a patient with classic symptoms of hyperglycemia or hyperglycemic crisis, random plasma glucose results greater than or equal to 200 mg/dL meet the criteria for diagnosis of diabetes.Reference: Standards of Medical Care in Diabetes 2016, [place] [employer]. Diabetes Care. 2016.39(Suppl 1). Performed By: #### 1 9123-9, 57001-8 ####[facility] TEDDYRYAN [id number] [place] [address] [place] Potassium [Moles/Vol] 3.5 mmol/L Low 3.7-5.1 [facility] Comment on above: Order Comment: Speci men Type: BLOOD SPECIMENOrdering Facility: [facility] Address: [address] [place] [address] Performed By: #### 1 9123-9, 90051-1 ####[facility] TEDDYBAYARDBANG [id number] [place] [address] [place] Protein [Mass/Vol] 6.3 g/dL Normal 6.3-8.0 [facility] Comment on above: Order Comment: Speci men Type: BLOOD SPECIMENOrdering Facility: [facility] Address: [address] [place] [address] Performed By: #### 1 9123-9, 40123-0 ####[facility] HOSPITALBANG [id number] [place] [address] [place] Sodium [Moles/Vol] 136 mmol/L Normal 136-144 [facility] Comment on above: Order Comment: Speci men Type: BLOOD SPECIMENOrdering Facility: [facility] Address: [address] [place] [address] Performed By: #### 1 9123-9, 04588-7 ####[facility]OSPITALGIANNALIA [id number] [place] [address] [place] Urea nitrogen [Mass/Vol] 20 mg/dL Normal 9-24 [facility] Comment on above: Order Comment: Speci men Type: BLOOD SPECIMENOrdering Facility: [facility] Address: [address] [place] [address] Performed By: #### 1 9123-9, 17171-8 ####[facility] MILLTOWNCLIA [id number] [place] [address] [place] MAGNESIUMon 06-21-2024 Magnesium [Mass/Vol] 1.5 mg/dL Low 1.7 - 2 .3 mg/dL [facility] Magnesium SerPl-mCncon 06-21 Magnesium [Mass/Vol] 1.5 mg/dL Low 1.7-2.3 [facility] Comment on above: Order Comment: Speci men Type: BLOOD SPECIMENOrdering Facility: [facility] Address: [address] [place] [address] Performed By: #### 1 9123-9, 48657-8 ####[facility] GARDENWHILIA [id number] [place] [address] [place] No Panel InformationOrdered By: Cody Hurtado on 06-21-2024 Interpretation and review of laboratory results Abnormal [facility] CNPNon 06-15-2024 CNPN Normal [facility] CBC W Auto Differential pane l (Bld)on 06-08-2024 Basophils (Bld) [#/Vol] [facility] Basophils/100 WBC (Bld) 0.0 % [facility] Differential cell count method Nom (Bld) Auto [facility] Eosinophils (Bld) [#/Vol] 0.04 10*3/uL [facility] Eosinophils/100 WBC (Bld) 1.0 % [facility] Erythrocyte distribution width (RBC) [Ratio] 21.7 % High 11.5 - 15.0 % [facility] Hematocrit (Bld) [Volume fraction] 30.1 % Low 39.0 - 51.0 % [facility] Hemoglobin (Bld) [Mass/Vol] 9.3 g/dL Low 13.0 - 17.0 g/dL [facility] Immature granulocytes (Bld) [#/Vol] [facility] Immature granulocytes/100 WBC (Bld) 0.3 % [facility] Interpretation and review of laboratory results Abnormal [facility] Lymphocytes (Bld) [#/Vol] 0.64 10*3/uL Low [facility] Lymphocytes/100 WBC (Bld) 16.7 % [facility] MCH (RBC) [Entitic mass] 29.3 pg 26.0 - 34.0 pg [facility] MCHC (RBC) [Mass/Vol] 30.9 g/dL 30.5 - 36.0 g/dL [facility] MCV (RBC) [Entitic vol] 95.0 fL 80.0 - 100.0 fL [facility] Monocytes (Bld) [#/Vol] 0.54 10*3/uL [facility] Monocytes/100 WBC (Bld) 14.1 % [facility] Neutrophils (Bld) [#/Vol] 2.60 10*3/uL [facility] Neutrophils/100 WBC (Bld) 67.9 % [facility] Nucleated RBC (Bld) [#/Vol] [facility] Nucleated RBC/100 WBC (Bld) [Ratio] 0.0 % /100 WBC [facility] Platelet mean volume (Bld) [Entitic vol] 9.3 fL 9.0 - 12.7 fL [facility] Platelets (Bld) [#/Vol] 110 10*3/uL Low [facility] RBC (Bld) [#/Vol] 3.17 10*6/uL Low 4.20 - 6.0 0 m/uL [facility] WBC (Bld) [#/Vol] 3.83 10*3/uL [facility] Basophils (Bld) [#/Vol] 10*3/uL Normal <0.11 [facility] Comment on above: Order Comment: Speci men Type: BLOOD SPECIMENOrdering Facility: [facility] Address: [address] [place] [address] Performed By: #### 5 7021-8 ####[facility] [id number] [address] [facility] Basophils/100 WBC (Bld) 0.0 % Normal [facility] Comment on above: Order Comment: Speci men Type: BLOOD SPECIMENOrdering Facility: [facility] Address: [address] [place] [address] Performed By: #### 5 7021-8 ####[facility] [id number] [place] [address] [place] Differential cell count method Nom (Bld) Auto Normal [facility] Comment on above: Order Comment: Speci men Type: BLOOD SPECIMENOrdering Facility: [facility] Address: [address] [place] [address] Performed By: #### 5 7021-8 ####[facility] [id number] [place] [address] [place] Eosinophils (Bld) [#/Vol] 0.04 10*3/uL Normal <0.46 [facility] Comment on above: Order Comment: Speci men Type: BLOOD SPECIMENOrdering Facility: [facility] Address: [address] [place] [address] Performed By: #### 5 7021-8 ####[facility] [id number] [place] [address] [place] Eosinophils/100 WBC (Bld) 1.0 % Normal [facility] Comment on above: Order Comment: Speci men Type: BLOOD SPECIMENOrdering Facility: [facility] Address: [address] [place] [address] Performed By: #### 5 7021-8 ####[facility] [id number] [place] [address] [place] Erythrocyte distribution width (RBC) [Ratio] 21.7 % High 11.5-15.0 [facility] Comment on above: Order Comment: Speci men Type: BLOOD SPECIMENOrdering Facility: [facility] Address: [address] [place] [address] Performed By: #### 5 7021-8 ####[facility] [id number] [place] [address] [place] Hematocrit (Bld) [Volume fraction] 30.1 % Low 39.0-51.0 [facility] Comment on above: Order Comment: Speci men Type: BLOOD SPECIMENOrdering Facility: [facility] Address: [address] [place] [address] Performed By: #### 5 7021-8 ####[facility] TEDDYBAYARDNCCARLO [id number] [place] [address] [place] Hemoglobin (Bld) [Mass/Vol] 9.3 g/dL Low 13.0-17.0 [facility] Comment on above: Order Comment: Speci men Type: BLOOD SPECIMENOrdering Facility: [facility] Address: [address] [place] [address] Performed By: #### 5 7021-8 ####[facility] [id number] [place] [address] [place] Immature granulocytes (Bld) [#/Vol] 10*3/uL Normal <0.10 [facility] Comment on above: Order Comment: Speci men Type: BLOOD SPECIMENOrdering Facility: [facility] Address: [address] [place] [address] Performed By: #### 5 7021-8 ####[facility]ITALNCLIA [id number] [place] [address] [place] Immature granulocytes/100 WBC (Bld) 0.3 % Normal [facility] Comment on above: Order Comment: Speci men Type: BLOOD SPECIMENOrdering Facility: [facility] Address: [address] [place] [address] Performed By: #### 5 7021-8 ####[facility]ITALNCLIA [id number] [place] [address] [place] Lymphocytes (Bld) [#/Vol] 0.64 10*3/uL Low 1.00-4.00 [facility] Comment on above: Order Comment: Speci men Type: BLOOD SPECIMENOrdering Facility: [facility] Address: [address] [place] [address] Performed By: #### 5 7021-8 ####[facility]PITALGIANNALIA [id number] [place] [address] [place] Lymphocytes/100 WBC (Bld) 16.7 % Normal [facility] Comment on above: Order Comment: Speci men Type: BLOOD SPECIMENOrdering Facility: [facility] Address: [address] [place] [address] Performed By: #### 5 7021-8 ####[facility] NORTHLIA [id number] [place] [address] [place] MCH (RBC) [Entitic mass] 29.3 pg Normal 26.0-34.0 [facility] Comment on above: Order Comment: Speci men Type: BLOOD SPECIMENOrdering Facility: [facility] Address: [address] [place] [address] Performed By: #### 5 7021-8 ####[facility] [id number] [place] [address] [place] MCHC (RBC) [Mass/Vol] 30.9 g/dL Normal 30.5-36.0 [facility] Comment on above: Order Comment: Speci men Type: BLOOD SPECIMENOrdering Facility: [facility] Address: [address] [place] [address] Performed By: #### 5 7021-8 ####[facility]ITALNCLIA [id number] [place] [address] [place] MCV (RBC) [Entitic vol] 95.0 fL Normal 80.0-100.0 [facility] Comment on above: Order Comment: Speci men Type: BLOOD SPECIMENOrdering Facility: [facility] Address: [address] [place] [address] Performed By: #### 5 7021-8 ####[facility] [id number] [place] [address] [place] Monocytes (Bld) [#/Vol] 0.54 10*3/uL Normal <0.87 [facility] Comment on above: Order Comment: Speci men Type: BLOOD SPECIMENOrdering Facility: [facility] Address: [address] [place] [address] Performed By: #### 5 7021-8 ####[facility] NORTHLIA [id number] [place] [address] [place] Monocytes/100 WBC (Bld) 14.1 % Normal [facility] Comment on above: Order Comment: Speci men Type: BLOOD SPECIMENOrdering Facility: [facility] Address: [address] [place] [address] Performed By: #### 5 7021-8 ####[facility]OSPITALNCLI [id number] [place] [address] [place] Neutrophils (Bld) [#/Vol] 2.60 10*3/uL Normal 1.45-7.50 [facility] Comment on above: Order Comment: Speci men Type: BLOOD SPECIMENOrdering Facility: [facility] Address: [address] [place] [address] Performed By: #### 5 7021-8 ####[facility] [id number] [place] [address] [place] Neutrophils/100 WBC (Bld) 67.9 % Normal [facility] Comment on above: Order Comment: Speci men Type: BLOOD SPECIMENOrdering Facility: [facility] Address: [address] [place] [address] Performed By: #### 5 7021-8 ####[facility] [id number] [place] [address] [place] Nucleated RBC (Bld) [#/Vol] 10*3/uL Normal <0.01 [facility] Comment on above: Order Comment: Speci men Type: BLOOD SPECIMENOrdering Facility: [facility] Address: [address] [place] [address] Performed By: #### 5 7021-8 ####[facility] ANGEL [id number] [place] [address] [place] Nucleated RBC/100 WBC (Bld) [Ratio] 0.0 /100 WBC Normal [facility] Comment on above: Order Comment: Speci men Type: BLOOD SPECIMENOrdering Facility: [facility] Address: [address] [place] [address] Performed By: #### 5 7021-8 ####[facility] TEDDYBAYARDNCCARLO [id number] [place] [address] [place] Platelet mean volume (Bld) [Entitic vol] 9.3 fL Normal 9.0-12.7 [facility] Comment on above: Order Comment: Speci men Type: BLOOD SPECIMENOrdering Facility: [facility] Address: [address] [place] [address] Performed By: #### 5 7021-8 ####[facility] TEDDYBAYARDNCBECKYA [id number] [place] [address] [place] Platelets (Bld) [#/Vol] 110 10*3/uL Low 150-400 [facility] Comment on above: Order Comment: Speci men Type: BLOOD SPECIMENOrdering Facility: [facility] Address: [address] [place] [address] Performed By: #### 5 7021-8 ####[facility]ITALNCLIA [id number] [place] [address] [place] RBC (Bld) [#/Vol] 3.17 10*6/uL Low 4.20-6.00 [facility] Comment on above: Order Comment: Speci men Type: BLOOD SPECIMENOrdering Facility: [facility] Address: [address] [place] [address] Performed By: #### 5 7021-8 ####[facility] GARDENWNCLIA [id number] [place] [address] [place] WBC (Bld) [#/Vol] 3.83 10*3/uL Normal 3.70-11.00 [facility] Comment on above: Order Comment: Speci men Type: BLOOD SPECIMENOrdering Facility: [facility] Address: [address] [place] [address] Performed By: #### 5 7021-8 ####[facility]ITALNCLIA [id number] [place] [address] [place] [facility] 06-08-2024 Carcinoembryonic Ag [Mass/Vol] 40.5 ng/mL High <=2.9 [facility] Comment on above: Order Comment: Speci men Type: BLOOD SPECIMENOrdering Facility: [facility] Address: [address] [place] [address] Result Comment: Carc inoembryonic antigen test is used as an aid in monitoring response to treatment or recurrence in patients with established colorectal, breast, lung, prostatic, pancreatic, and ovarian carcinomas. Clinical correlation is required.The Carcinoembryonic antigen test was performed using the [employer] DXI paramagnetic particle chemiluminescent immunoassay method. Results obtained with different assay methods or kits cannot be used interchangeably. Performed By: #### 2 039-6 ####[facility] LABCLIA [id number] [place] [address] [place] Comprehensive metabolic 2000 panelOrdered By: Cody Hurtado on 06-08-2024 Albumin [Mass/Vol] 3.7 g/dL Low 3.9 - 4.9 g/dL [facility] ALP [Catalytic activity/Vol] 81 U/L 38 - 113 U/L [facility] ALT [Catalytic activity/Vol] 9 U/L Low 10 - 54 U/L [facility] Anion gap [Moles/Vol] 10 mmol/L 8 - 15 mmol/L [facility] AST [Catalytic activity/Vol] 13 U/L Low 14 - 40 U/L [facility] Bilirubin [Mass/Vol] 0.9 mg/dL 0.2 - 1 .3 mg/dL [facility] Calcium [Mass/Vol] 8.9 mg/dL 8.5 - 10. 2 mg/dL [facility] Chloride [Moles/Vol] 98 mmol/L 98 - 10 7 mmol/L [facility] CO2 [Moles/Vol] 27 mmol/L 22 - 30 mmol/L [facility] Creatinine [Mass/Vol] 0.76 mg/dL 0.73 - 1.22 mg/dL [facility] GFR/1.73 sq M.predicted among non-blacks MDRD (S/P/Bld) [Vol rate/Area] 93 mL/min/{1.73_m2} - PINF [facility] Comment on above: Estimated Glomerular Filtration Rate (eGFR) is calculated using the 2020 CKD-EPI creatinine equation. This equation utilizes serum creatinine, sex, and age as parameters. The creatinine assay has traceable calibration to isotope dilution-mass spectrometry. Refer to KDIGO guidelines for clinical interpretation. In patients with unstable renal function, e.g. those with acute kidney injury, the eGFR may not accurately reflect actual GFR. Glucose [Mass/Vol] 232 mg/dL High 74 - 99 mg/dL [facility] Comment on above: The [place] [employer] [place] [employer] (ADA) provides guidance for cutoff values for fasting glucose and random glucose. The ADA defines fasting as no caloric intake for at least 8 hours. Fasting plasma glucose results between 100 to 125 mg/dL indicate increased risk for diabetes (prediabetes). Fasting plasma glucose results greater than or equal to 126 mg/dL meet the criteria for diagnosis of diabetes. In the absence of unequivocal hyperglycemia, results should be confirmed by repeat testing. In a patient with classic symptoms of hyperglycemia or hyperglycemic crisis, random plasma glucose results greater than or equal to 200 mg/dL meet the criteria for diagnosis of diabetes. Reference: Standards of Medical Care in Diabetes 2016, [place] [employer]. Diabetes Care. 2016.39(Suppl 1). Interpretation and review of laboratory results Abnormal [facility] Potassium [Moles/Vol] 3.6 mmol/L Low 3.7 - 5.1 mmol/L [facility] Protein [Mass/Vol] 6.4 g/dL 6.3 - 8.0 g/dL [facility] Sodium [Moles/Vol] 135 mmol/L Low 136 - 144 mmol/L [facility] Urea nitrogen [Mass/Vol] 13 mg/dL 9 - 24 mg/dL [facility] Comprehensive metabolic 2000 panelon 06-08-2024 Albumin [Mass/Vol] 3.7 g/dL Low 3.9-4.9 [facility] Comment on above: Order Comment: Speci men Type: BLOOD SPECIMENOrdering Facility: [facility] Address: [address] [place] [address] Performed By: #### 2 4323-8, ####[facility] MILLTOWNCLIA [id number] [place] [address] [place] ALP [Catalytic activity/Vol] 81 U/L Normal 38-113 [facility] Comment on above: Order Comment: Speci men Type: BLOOD SPECIMENOrdering Facility: [facility] Address: [address] [place] [address] Performed By: #### 2 4323-8, ####[facility] MILLTOWNCLIA [id number] [place] [address] [place] ALT [Catalytic activity/Vol] 9 U/L Low 10-54 [facility] Comment on above: Order Comment: Speci men Type: BLOOD SPECIMENOrdering Facility: [facility] Address: [address] [place] [address] Performed By: #### 2 4323-8, ####[facility] MILLTOWNCLIA [id number] [place] [address] [place] Anion gap [Moles/Vol] 10 mmol/L Normal 8-15 [facility] Comment on above: Order Comment: Speci men Type: BLOOD SPECIMENOrdering Facility: [facility] Address: [address] [place] [address] Performed By: #### 2 4323-8, ####[facility] MILLTOWNCLIA [id number] [place] [address] [place] AST [Catalytic activity/Vol] 13 U/L Low 14-40 [facility] Comment on above: Order Comment: Speci men Type: BLOOD SPECIMENOrdering Facility: [facility] Address: [address] [place] [address] Performed By: #### 2 4323-8, 30992-6 ####[facility] MILLTOWGIANNALIMckenna [id number] [place] [address] [place] Bilirubin [Mass/Vol] 0.9 mg/dL Normal 0.2-1.3 [facility] Comment on above: Order Comment: Speci men Type: BLOOD SPECIMENOrdering Facility: [facility] Address: [address] [place] [address] Performed By: #### 2 4323-8, ####[facility]EN[facility] [id number] [place] [address] [place] Calcium [Mass/Vol] 8.9 mg/dL Normal 8.5-10.2 [facility] Comment on above: Order Comment: Speci men Type: BLOOD SPECIMENOrdering Facility: [facility] Address: [address] [place] [address] Performed By: #### 2 4323-8, ####[facility] [id number] [place] [address] [place] Chloride [Moles/Vol] 98 mmol/L Normal 98-107 [facility] Comment on above: Order Comment: Speci men Type: BLOOD SPECIMENOrdering Facility: [facility] Address: [address] [place] [address] Performed By: #### 2 4323-8, ####[facility] MILLTOWNCLIA [id number] [place] [address] [place] CO2 [Moles/Vol] 27 mmol/L Normal 22-30 [facility] Comment on above: Order Comment: Speci men Type: BLOOD SPECIMENOrdering Facility: [facility] Address: [address] [place] [address] Performed By: #### 2 4323-8, ####[facility] [id number] [place] [address] [place] Creatinine [Mass/Vol] 0.76 mg/dL Normal 0.73-1.22 [facility] Comment on above: Order Comment: Speci men Type: BLOOD SPECIMENOrdering Facility: [facility] Address: [address] [place] [address] Performed By: #### 2 4323-8, ####[facility] [id number] [place] [address] [place] Creatinine and Glomerular filtration rate.predicted panel (S/P/Bld) 93 mL/min/1.73m??? Normal >=60 [facility] Comment on above: Order Comment: Speci men Type: BLOOD SPECIMENOrdering Facility: [facility] Address: [address] [place] [address] Result Comment: Rod mated Glomerular Filtration Rate (eGFR) is calculated using the 2020 CKD-EPI creatinine equation. This equation utilizes serum creatinine, sex, and age as parameters. The creatinine assay has traceable calibration to isotope dilution-mass spectrometry. Refer to KDIGO guidelines for clinical interpretation. In patients with unstable renal function, e.g. those with acute kidney injury, the eGFR may not accurately reflect actual GFR. Performed By: #### 2 4323-8, ####[facility] [id number] [place] [address] [place] Glucose [Mass/Vol] 232 mg/dL High 74-99 [facility] Comment on above: Order Comment: Speci men Type: BLOOD SPECIMENOrdering Facility: [facility] Address: [address] [id number] Result Comment: The [place] [employer] (ADA) provides guidance for cutoff values for fasting glucose and random glucose. The ADA defines fasting as no caloric intake for at least 8 hours. Fasting plasma glucose results between 100 to 125 mg/dL indicate increased risk for diabetes (prediabetes).Fasting plasma glucose results greater than or equal to 126 mg/dL meet the criteria for diagnosis of diabetes. In the absence of unequivocal hyperglycemia, results should be confirmed by repeat testing. In a patient with classic symptoms of hyperglycemia or hyperglycemic crisis, random plasma glucose results greater than or equal to 200 mg/dL meet the criteria for diagnosis of diabetes.Reference: Standards of Medical Care in Diabetes 2016, [place] [employer]. Diabetes Care. 2016.39(Suppl 1). Performed By: #### 2 4323-8, ####[facility] [id number] [place] [address] [place] Potassium [Moles/Vol] 3.6 mmol/L Low 3.7-5.1 [facility] Comment on above: Order Comment: Speci men Type: BLOOD SPECIMENOrdering Facility: [facility] Address: [address] [place] [address] Performed By: #### 2 4323-8, ####[facility] [id number] [place] [address] [place] Protein [Mass/Vol] 6.4 g/dL Normal 6.3-8.0 [facility] Comment on above: Order Comment: Speci men Type: BLOOD SPECIMENOrdering Facility: [facility] Address: [address] [id number] Performed By: #### 2 4323-8, ####[facility] [id number] [place] [address] [place] Sodium [Moles/Vol] 135 mmol/L Low 136-144 [facility] Comment on above: Order Comment: Speci men Type: BLOOD SPECIMENOrdering Facility: [facility] Address: [address] [place], [place] [address] Performed By: #### 2 4323-8, ####[facility] TEDDYBAYARDGIANNACARLO [id number] [place] [address] [place] Urea nitrogen [Mass/Vol] 13 mg/dL Normal 9-24 [facility] Comment on above: Order Comment: Speci men Type: BLOOD SPECIMENOrdering Facility: [facility] Address: [address] [place], [place] [address] Performed By: #### 2 4323-8, ####[facility] TEDDYBAYARDNCLIMckenna [id number] [place] [address] [place] MAGNESIUMon 06-08-2024 Magnesium [Mass/Vol] 1.8 mg/dL 1.7 - 2 .3 mg/dL [facility] Magnesium SerPl-mCncon 06-08 Magnesium [Mass/Vol] 1.8 mg/dL Normal 1.7-2.3 [facility] Comment on above: Order Comment: Speci men Type: BLOOD SPECIMENOrdering Facility: [facility] Address: [address] [place], [place] [address] Performed By: #### 2 4323-8, ####[facility]ITALNCLIA [id number] [place] [address] [place] Magnesium [Mass/Vol]on 06-08 Interpretation and review of laboratory results Normal [facility] No Panel InformationOrdered By: Cody Hurtado on 06-08-2024 [facility] UA DIP, URINE (POC)on 2023 BILIRUBIN UA (POCT) Negative Negative [facility] CLARITY UA (POCT) Clear [facility] COLOR UA (POCT) Yellow [facility] GLUCOSE UA (POCT) Negative Negative mg/dL [facility] Hemoglobin Ql (U) Negative Negative [facility] KETONE UA (POCT) Negative Negative mg/dL [facility] LEUKOCYTES UA (POCT) Negative Negative [facility] NITRITE UA (POCT) Negative Negative [facility] PH UA (POCT) 6.5 4.5 - 8.0 [facility] Protein Ql (U) Negative Negative mg/dL [facility] SPECIFIC GRAVITY UA (POCT) 1.010 1.005 - 1.030 [facility] UROBILINOGEN UA (POCT) 0.2 Normal E.U./dL [facility] Location:[facility], [address], [place], [place], [id number] [place] [address] POINT OF CARE [facility] CBC W Auto Differential pane l (Bld)on 05-24-2024 Basophils (Bld) [#/Vol] [facility] Basophils/100 WBC (Bld) 0.0 % [facility] Differential cell count method Nom (Bld) Auto [facility] Eosinophils (Bld) [#/Vol] 0.06 10*3/uL [facility] Eosinophils/100 WBC (Bld) 2.3 % [facility] Erythrocyte distribution width (RBC) [Ratio] 21.2 % High 11.5 - 15.0 % [facility] Hematocrit (Bld) [Volume fraction] 30.1 % Low 39.0 - 51.0 % [facility] Hemoglobin (Bld) [Mass/Vol] 9.3 g/dL Low 13.0 - 17.0 g/dL [facility] Immature granulocytes (Bld) [#/Vol] [facility] Immature granulocytes/100 WBC (Bld) 0.8 % [facility] Interpretation and review of laboratory results Abnormal [facility] Lymphocytes (Bld) [#/Vol] 0.80 10*3/uL Low [facility] Lymphocytes/100 WBC (Bld) 30.1 % [facility] MCH (RBC) [Entitic mass] 29.4 pg 26.0 - 34.0 pg [facility] MCHC (RBC) [Mass/Vol] 30.9 g/dL 30.5 - 36.0 g/dL [facility] MCV (RBC) [Entitic vol] 95.3 fL 80.0 - 100.0 fL [facility] Monocytes (Bld) [#/Vol] 0.35 10*3/uL [facility] Monocytes/100 WBC (Bld) 13.2 % [facility] Neutrophils (Bld) [#/Vol] 1.43 10*3/uL Low [facility] Neutrophils/100 WBC (Bld) 53.6 % [facility] Nucleated RBC (Bld) [#/Vol] NINF [facility] Nucleated RBC/100 WBC (Bld) [Ratio] 0.0 % /100 WBC [facility] Platelet mean volume (Bld) [Entitic vol] 10.2 fL 9.0 - 12.7 fL [facility] Platelets (Bld) [#/Vol] 120 10*3/uL Low [facility] RBC (Bld) [#/Vol] 3.16 10*6/uL Low 4.20 - 6.0 0 m/uL [facility] WBC (Bld) [#/Vol] 2.66 10*3/uL Low [facility] Basophils (Bld) [#/Vol] 10*3/uL Normal <0.11 [facility] Comment on above: Order Comment: Speci men Type: BLOOD SPECIMENOrdering Facility: [facility] Address: [address] [place] [address] Performed By: #### 5 7021-8 ####[facility] [id number] [address] [place] Basophils/100 WBC (Bld) 0.0 % Normal [facility] Comment on above: Order Comment: Speci men Type: BLOOD SPECIMENOrdering Facility: [facility] Address: [address] [place] [address] Performed By: #### 5 7021-8 ####[facility] NORTHLIA [id number] [address] [place] Differential cell count method Nom (Bld) Auto Normal [facility] Comment on above: Order Comment: Speci men Type: BLOOD SPECIMENOrdering Facility: [facility] Address: [address] [place] [address] Performed By: #### 5 7021-8 ####[facility] NORTHLIA [id number] [place] [address] [place] Eosinophils (Bld) [#/Vol] 0.06 10*3/uL Normal <0.46 [facility] Comment on above: Order Comment: Speci men Type: BLOOD SPECIMENOrdering Facility: [facility] Address: [address] [place] [address] Performed By: #### 5 7021-8 ####[facility] [id number] [place] [address] [place] Eosinophils/100 WBC (Bld) 2.3 % Normal [facility] Comment on above: Order Comment: Speci men Type: BLOOD SPECIMENOrdering Facility: [facility] Address: [address] [place] [address] Performed By: #### 5 7021-8 ####[facility] [id number] [place] [address] [place] Erythrocyte distribution width (RBC) [Ratio] 21.2 % High 11.5-15.0 [facility] Comment on above: Order Comment: Speci men Type: BLOOD SPECIMENOrdering Facility: [facility] Address: [address] [place] [address] Performed By: #### 5 7021-8 ####[facility]OS[facility]ITALNCLI [id number] [place] [address] [place] Hematocrit (Bld) [Volume fraction] 30.1 % Low 39.0-51.0 [facility] Comment on above: Order Comment: Speci men Type: BLOOD SPECIMENOrdering Facility: [facility] Address: [address] [place] [address] Performed By: #### 5 7021-8 ####[facility]ITALNCLIA [id number] [place] [address] [place] Hemoglobin (Bld) [Mass/Vol] 9.3 g/dL Low 13.0-17.0 [facility] Comment on above: Order Comment: Speci men Type: BLOOD SPECIMENOrdering Facility: [facility] Address: [address] [place] [address] Performed By: #### 5 7021-8 ####[facility] ANGEL [id number] [place] [address] [place] Immature granulocytes (Bld) [#/Vol] 10*3/uL Normal <0.10 [facility] Comment on above: Order Comment: Speci men Type: BLOOD SPECIMENOrdering Facility: [facility] Address: [address] [place] [address] Performed By: #### 5 7021-8 ####[facility] [id number] [place] [address] [place] Immature granulocytes/100 WBC (Bld) 0.8 % Normal [facility] Comment on above: Order Comment: Speci men Type: BLOOD SPECIMENOrdering Facility: [facility] Address: [address] [place] [address] Performed By: #### 5 7021-8 ####[facility] [id number] [place] [address] [place] Lymphocytes (Bld) [#/Vol] 0.80 10*3/uL Low 1.00-4.00 [facility] Comment on above: Order Comment: Speci men Type: BLOOD SPECIMENOrdering Facility: [facility] Address: [address] [place] [address] Performed By: #### 5 7021-8 ####[facility] NORTHLIA [id number] [place] [address] [place] Lymphocytes/100 WBC (Bld) 30.1 % Normal [facility] Comment on above: Order Comment: Speci men Type: BLOOD SPECIMENOrdering Facility: [facility] Address: [address] [place] [address] Performed By: #### 5 7021-8 ####[facility] TEDDYBAYARDNCLIA [id number] [place] [address] [place] MCH (RBC) [Entitic mass] 29.4 pg Normal 26.0-34.0 [facility] Comment on above: Order Comment: Speci men Type: BLOOD SPECIMENOrdering Facility: [facility] Address: [address] [place] [address] Performed By: #### 5 7021-8 ####[facility] [id number] [place] [address] [place] MCHC (RBC) [Mass/Vol] 30.9 g/dL Normal 30.5-36.0 [facility] Comment on above: Order Comment: Speci men Type: BLOOD SPECIMENOrdering Facility: [facility] Address: [address] [place] [address] Performed By: #### 5 7021-8 ####[facility] [id number] [place] [address] [place] MCV (RBC) [Entitic vol] 95.3 fL Normal 80.0-100.0 [facility] Comment on above: Order Comment: Speci men Type: BLOOD SPECIMENOrdering Facility: [facility] Address: [address] [place] [address] Performed By: #### 5 7021-8 ####[facility] [id number] [place] [address] [place] Monocytes (Bld) [#/Vol] 0.35 10*3/uL Normal <0.87 [facility] Comment on above: Order Comment: Speci men Type: BLOOD SPECIMENOrdering Facility: [facility] Address: [address] [place] [address] Performed By: #### 5 7021-8 ####[facility]OSPITALNCLI [id number] [place] [id number] [place] Monocytes/100 WBC (Bld) 13.2 % Normal [facility] Comment on above: Order Comment: Speci men Type: BLOOD SPECIMENOrdering Facility: [facility] Address: [address] [place] [address] Performed By: #### 5 7021-8 ####[facility]OSPITALNCA [id number] [place] [address] [place] Neutrophils (Bld) [#/Vol] 1.43 10*3/uL Low 1.45-7.50 [facility] Comment on above: Order Comment: Speci men Type: BLOOD SPECIMENOrdering Facility: [facility] Address: [address] [place] [address] Performed By: #### 5 7021-8 ####[facility] [id number] [place] [address] [place] Neutrophils/100 WBC (Bld) 53.6 % Normal [facility] Comment on above: Order Comment: Speci men Type: BLOOD SPECIMENOrdering Facility: [facility] Address: [address] [place] [address] Performed By: #### 5 7021-8 ####[facility] [id number] [place] [address] [place] Nucleated RBC (Bld) [#/Vol] 10*3/uL Normal <0.01 [facility] Comment on above: Order Comment: Speci men Type: BLOOD SPECIMENOrdering Facility: [facility] Address: [address] [place] [address] Performed By: #### 5 7021-8 ####[facility] [id number] [place] [address] [place] Nucleated RBC/100 WBC (Bld) [Ratio] 0.0 /100 WBC Normal [facility] Comment on above: Order Comment: Speci men Type: BLOOD SPECIMENOrdering Facility: [facility] Address: [address] [place] [address] Performed By: #### 5 7021-8 ####[facility] ANGEL [id number] [place] [address] [place] Platelet mean volume (Bld) [Entitic vol] 10.2 fL Normal 9.0-12.7 [facility] Comment on above: Order Comment: Speci men Type: BLOOD SPECIMENOrdering Facility: [facility] Address: [address] [place] [address] Performed By: #### 5 7021-8 ####[facility] TEDDYBAYARDBANG [id number] [place] [address] [place] Platelets (Bld) [#/Vol] 120 10*3/uL Low 150-400 [facility] Comment on above: Order Comment: Speci men Type: BLOOD SPECIMENOrdering Facility: [facility] Address: [address] [place] [address] Performed By: #### 5 7021-8 ####[facility]OSPITALNCBECKYA [id number] [place] [address] [place] RBC (Bld) [#/Vol] 3.16 10*6/uL Low 4.20-6.00 [facility] Comment on above: Order Comment: Speci men Type: BLOOD SPECIMENOrdering Facility: [facility] Address: [address] [place], [place] [address] Performed By: #### 5 7021-8 ####[facility]ITALNCLIA [id number] [place] [address] [place] WBC (Bld) [#/Vol] 2.66 10*3/uL Low 3.70-11.00 [facility] Comment on above: Order Comment: Speci men Type: BLOOD SPECIMENOrdering Facility: [facility] Address: [address] [place] [address] Performed By: #### 5 7021-8 ####[facility] CLAU MILLWNCLIA [id number] [place] [address] [place] CEA SerPl-mCncon 05-24-2024 Carcinoembryonic Ag [Mass/Vol] 35.4 ng/mL High <=2.9 [facility] Comment on above: Order Comment: Speci men Type: BLOOD SPECIMENOrdering Facility: [facility] Address: [address] [place] [address] Result Comment: Carc inoembryonic antigen test is used as an aid in monitoring response to treatment or recurrence in patients with established colorectal, breast, lung, prostatic, pancreatic, and ovarian carcinomas. Clinical correlation is required.The Carcinoembryonic antigen test was performed using the [employer] DXI paramagnetic particle chemiluminescent immunoassay method. Results obtained with different assay methods or kits cannot be used interchangeably. Performed By: #### 2 039-6 ####[facility] LABCLIA [id number] [place] [address] [place] CNOVSPon 05-24-2024 CNOVSP Normal [facility] Comprehensive metabolic 2000 panelOrdered By: Silvina Garibay on 05-24-2024 Albumin [Mass/Vol] 3.7 g/dL Low 3.9 - 4.9 g/dL [facility] ALP [Catalytic activity/Vol] 95 U/L 38 - 113 U/L [facility] ALT [Catalytic activity/Vol] 8 U/L Low 10 - 54 U/L [facility] Anion gap [Moles/Vol] 8 mmol/L 8 - 15 mmol/L [facility] AST [Catalytic activity/Vol] 15 U/L 14 - 40 U/L [facility] Bilirubin [Mass/Vol] 0.5 mg/dL 0.2 - 1 .3 mg/dL [facility] Calcium [Mass/Vol] 9.3 mg/dL 8.5 - 10. 2 mg/dL [facility] Chloride [Moles/Vol] 102 mmol/L 98 - 10 7 mmol/L [facility] CO2 [Moles/Vol] 29 mmol/L 22 - 30 mmol/L [facility] Creatinine [Mass/Vol] 0.78 mg/dL 0.73 - 1.22 mg/dL [facility] GFR/1.73 sq M.predicted among non-blacks MDRD (S/P/Bld) [Vol rate/Area] 92 mL/min/{1.73_m2} - PINF [facility] Comment on above: Estimated Glomerular Filtration Rate (eGFR) is calculated using the 2020 CKD-EPI creatinine equation. This equation utilizes serum creatinine, sex, and age as parameters. The creatinine assay has traceable calibration to isotope dilution-mass spectrometry. Refer to KDIGO guidelines for clinical interpretation. In patients with unstable renal function, e.g. those with acute kidney injury, the eGFR may not accurately reflect actual GFR. Glucose [Mass/Vol] 183 mg/dL High 74 - 99 mg/dL [facility] Comment on above: The [place] [employer] (ADA) provides guidance for cutoff values for fasting glucose and random glucose. The ADA defines fasting as no caloric intake for at least 8 hours. Fasting plasma glucose results between 100 to 125 mg/dL indicate increased risk for diabetes (prediabetes). Fasting plasma glucose results greater than or equal to 126 mg/dL meet the criteria for diagnosis of diabetes. In the absence of unequivocal hyperglycemia, results should be confirmed by repeat testing. In a patient with classic symptoms of hyperglycemia or hyperglycemic crisis, random plasma glucose results greater than or equal to 200 mg/dL meet the criteria for diagnosis of diabetes. Reference: Standards of Medical Care in Diabetes 2016, [place] [employer]. Diabetes Care. 2016.39(Suppl 1). Interpretation and review of laboratory results Abnormal [facility] Potassium [Moles/Vol] 3.7 mmol/L 3.7 - 5.1 mmol/L [facility] Protein [Mass/Vol] 6.3 g/dL 6.3 - 8.0 g/dL [facility] Sodium [Moles/Vol] 139 mmol/L 136 - 144 mmol/L [facility] Urea nitrogen [Mass/Vol] 15 mg/dL 9 - 24 mg/dL [facility] Comprehensive metabolic 2000 panelon 05-24-2024 Albumin [Mass/Vol] 3.7 g/dL Low 3.9-4.9 [facility] Comment on above: Order Comment: Speci men Type: BLOOD SPECIMENOrdering Facility: [facility] Address: [address] [place] [address] Performed By: #### 2 4323-8, 88370-5 ####[facility] CLAU MILLTOWNCLIA [id number] [place] [address] [place] ALP [Catalytic activity/Vol] 95 U/L Normal 38-113 [facility] Comment on above: Order Comment: Speci men Type: BLOOD SPECIMENOrdering Facility: [facility] Address: [address] [place] [address] Performed By: #### 2 4323-8, ####[facility] MILLWNCLIA [id number] [place] [address] [place] ALT [Catalytic activity/Vol] 8 U/L Low 10-54 [facility] Comment on above: Order Comment: Speci men Type: BLOOD SPECIMENOrdering Facility: [facility] Address: [address] [place] [address] Performed By: #### 2 4323-8, ####[facility]ENWGIANNALIA [id number] [place] [address] [place] Anion gap [Moles/Vol] 8 mmol/L Normal 8-15 [facility] Comment on above: Order Comment: Speci men Type: BLOOD SPECIMENOrdering Facility: [facility] Address: [address] [place] [address] Performed By: #### 2 4323-8, ####[facility] MILLTOWNCLIA [id number] [place] [address] [place] AST [Catalytic activity/Vol] 15 U/L Normal 14-40 [facility] Comment on above: Order Comment: Speci men Type: BLOOD SPECIMENOrdering Facility: [facility] Address: [address] [place] [address] Performed By: #### 2 4323-8, ####[facility] HOSPITALGIANNALIA [id number] [place] [address] [place] Bilirubin [Mass/Vol] 0.5 mg/dL Normal 0.2-1.3 [facility] Comment on above: Order Comment: Speci men Type: BLOOD SPECIMENOrdering Facility: [facility] Address: [address] [place] [address] Performed By: #### 2 4323-8, ####[facility] MILLTOWNCLIA [id number] [place] [address] [place] Calcium [Mass/Vol] 9.3 mg/dL Normal 8.5-10.2 [facility] Comment on above: Order Comment: Speci men Type: BLOOD SPECIMENOrdering Facility: [facility] Address: [address] [place] [address] Performed By: #### 2 4323-8, ####[facility] MILLTOWNCLIA [id number] [place] [address] [place] Chloride [Moles/Vol] 102 mmol/L Normal 98-107 [facility] Comment on above: Order Comment: Speci men Type: BLOOD SPECIMENOrdering Facility: [facility] Address: [address] [place] [address] Performed By: #### 2 4323-8, ####[facility] MILLTOWNCLIA [id number] [place] [address] [place] CO2 [Moles/Vol] 29 mmol/L Normal 22-30 [facility] Comment on above: Order Comment: Speci men Type: BLOOD SPECIMENOrdering Facility: [facility] Address: [address] [place] [address] Performed By: #### 2 4323-8, ####[facility] MILLTOWNCLIA [id number] [place] [address] [place] Creatinine [Mass/Vol] 0.78 mg/dL Normal 0.73-1.22 [facility] Comment on above: Order Comment: Willam robles Type: BLOOD SPECIMENOrdering Facility: [facility] Address: [address] [place] [address] Performed By: #### 2 4323-8, ####[facility] [id number] [place] [address] [place] Creatinine and Glomerular filtration rate.predicted panel (S/P/Bld) 92 mL/min/1.73m??? Normal >=60 [facility] Comment on above: Order Comment: Willam robles Type: BLOOD SPECIMENOrdering Facility: [facility] Address: [address] [place] [address] Result Comment: Rod mated Glomerular Filtration Rate (eGFR) is calculated using the 2020 CKD-EPI creatinine equation. This equation utilizes serum creatinine, sex, and age as parameters. The creatinine assay has traceable calibration to isotope dilution-mass spectrometry. Refer to KDIGO guidelines for clinical interpretation. In patients with unstable renal function, e.g. those with acute kidney injury, the eGFR may not accurately reflect actual GFR. Performed By: #### 2 4323-8, ####[facility] [id number] [place] [address] [place] Glucose [Mass/Vol] 183 mg/dL High 74-99 [facility] Comment on above: Order Comment: Willam robles Type: BLOOD SPECIMENOrdering Facility: [facility] Address: [address] [place] [address] Result Comment: The [place] Diabetes Association (ADA) provides guidance for cutoff values for fasting glucose and random glucose. The ADA defines fasting as no caloric intake for at least 8 hours. Fasting plasma glucose results between 100 to 125 mg/dL indicate increased risk for diabetes (prediabetes).Fasting plasma glucose results greater than or equal to 126 mg/dL meet the criteria for diagnosis of diabetes. In the absence of unequivocal hyperglycemia, results should be confirmed by repeat testing. In a patient with classic symptoms of hyperglycemia or hyperglycemic crisis, random plasma glucose results greater than or equal to 200 mg/dL meet the criteria for diagnosis of diabetes.Reference: Standards of Medical Care in Diabetes 2016, [place] [employer]. Diabetes Care. 2016.39(Suppl 1). Performed By: #### 2 4323-8, ####[facility] NORTHLIA [id number] [place] [address] [place] Potassium [Moles/Vol] 3.7 mmol/L Normal 3.7-5.1 [facility] Comment on above: Order Comment: Speci men Type: BLOOD SPECIMENOrdering Facility: [facility] Address: [address] [place], [place] [address] Performed By: #### 2 432-8, ####[facility] [id number] [place] [address] [place] Protein [Mass/Vol] 6.3 g/dL Normal 6.3-8.0 [facility] Comment on above: Order Comment: Speci men Type: BLOOD SPECIMENOrdering Facility: [facility] Address: [address] [place], [place] [address] Performed By: #### 2 432-8, ####[facility] NORTHLIA [id number] [place] [address] [place] Sodium [Moles/Vol] 139 mmol/L Normal 136-144 [facility] Comment on above: Order Comment: Speci men Type: BLOOD SPECIMENOrdering Facility: [facility] Address: [address] [place] [address] Performed By: #### 2 4323-8, ####[facility]PITALNCLIA [id number] [place] [address] [place] Urea nitrogen [Mass/Vol] 15 mg/dL Normal 9-24 [facility] Comment on above: Order Comment: Speci men Type: BLOOD SPECIMENOrdering Facility: [facility] Address: [address] [place] [address] Performed By: #### 2 4323-8, 59060-8 ####[facility] CLAU SCHNEIDERNCCARLO [id number] [place] [address] [place] MAGNESIUMon 05-24-2024 Magnesium [Mass/Vol] 1.6 mg/dL Low 1.7 - 2 .3 mg/dL [facility] Magnesium SerPl-mCncon 05-24 Magnesium [Mass/Vol] 1.6 mg/dL Low 1.7-2.3 [facility] Comment on above: Order Comment: Speci men Type: BLOOD SPECIMENOrdering Facility: [facility] Address: [address] [place] [address] Performed By: #### 2 4323-8, 98498-9 ####[facility] CLAU TEDDYBAYARDNCLIA [id number] [place] [address] [place] Magnesium [Mass/Vol]on 05-24 Interpretation and review of laboratory results Abnormal [facility] CBC W Auto Differential pane l (Bld)on 05-11-2024 Basophils (Bld) [#/Vol] [facility] Basophils/100 WBC (Bld) 0.3 % [facility] Differential cell count method Nom (Bld) Auto [facility] Eosinophils (Bld) [#/Vol] 0.05 10*3/uL [facility] Eosinophils/100 WBC (Bld) 1.5 % [facility] Erythrocyte distribution width (RBC) [Ratio] 22.5 % High 11.5 - 15.0 % [facility] Hematocrit (Bld) [Volume fraction] 31.1 % Low 39.0 - 51.0 % [facility] Hemoglobin (Bld) [Mass/Vol] 9.7 g/dL Low 13.0 - 17.0 g/dL [facility] Immature granulocytes (Bld) [#/Vol] [facility] Immature granulocytes/100 WBC (Bld) 0.3 % [facility] Interpretation and review of laboratory results Abnormal [facility] Lymphocytes (Bld) [#/Vol] 0.73 10*3/uL Low [facility] Lymphocytes/100 WBC (Bld) 22.0 % [facility] MCH (RBC) [Entitic mass] 29.6 pg 26.0 - 34.0 pg [facility] MCHC (RBC) [Mass/Vol] 31.2 g/dL 30.5 - 36.0 g/dL [facility] MCV (RBC) [Entitic vol] 94.8 fL 80.0 - 100.0 fL [facility] Monocytes (Bld) [#/Vol] 0.45 10*3/uL NINF [facility] Monocytes/100 WBC (Bld) 13.6 % [facility] Neutrophils (Bld) [#/Vol] 2.07 10*3/uL [facility] Neutrophils/100 WBC (Bld) 62.3 % [facility] Nucleated RBC (Bld) [#/Vol] NINF [facility] Nucleated RBC/100 WBC (Bld) [Ratio] 0.0 % /100 WBC [facility] Platelet mean volume (Bld) [Entitic vol] 9.1 fL 9.0 - 12.7 fL [facility] Platelets (Bld) [#/Vol] 118 10*3/uL Low [facility] RBC (Bld) [#/Vol] 3.28 10*6/uL Low 4.20 - 6.0 0 m/uL [facility] WBC (Bld) [#/Vol] 3.32 10*3/uL Low [facility] Basophils (Bld) [#/Vol] 10*3/uL Normal <0.11 [facility] Comment on above: Order Comment: Speci men Type: BLOOD SPECIMENOrdering Facility: [facility] Address: [address] [place] [address] Performed By: #### 5 7021-8 ####[facility] [id number] [place] [address] [place] Basophils/100 WBC (Bld) 0.3 % Normal [facility] Comment on above: Order Comment: Speci men Type: BLOOD SPECIMENOrdering Facility: [facility] Address: [address] [place] [address] Performed By: #### 5 7021-8 ####[facility] MILLWGIANNALIA [id number] [place] [address] [place] Differential cell count method Nom (Bld) Auto Normal [facility] Comment on above: Order Comment: Speci men Type: BLOOD SPECIMENOrdering Facility: [facility] Address: [address] [place] [address] Performed By: #### 5 7021-8 ####[facility] HOSPITALGIANNALIA [id number] [place] [address] [place] Eosinophils (Bld) [#/Vol] 0.05 10*3/uL Normal <0.46 [facility] Comment on above: Order Comment: Speci men Type: BLOOD SPECIMENOrdering Facility: [facility] Address: [address] [place] [address] Performed By: #### 5 7021-8 ####[facility]OSPITALGIANNALIA [id number] [place] [address] [place] Eosinophils/100 WBC (Bld) 1.5 % Normal [facility] Comment on above: Order Comment: Speci men Type: BLOOD SPECIMENOrdering Facility: [facility] Address: [address] [place] [address] Performed By: #### 5 7021-8 ####[facility]OSPITALGIANNALIA [id number] [place] [address] [place] Erythrocyte distribution width (RBC) [Ratio] 22.5 % High 11.5-15.0 [facility] Comment on above: Order Comment: Speci men Type: BLOOD SPECIMENOrdering Facility: [facility] Address: [address] [place] [address] Performed By: #### 5 7021-8 ####[facility]OSPITALNCLIA [id number] [place] [address] [place] Hematocrit (Bld) [Volume fraction] 31.1 % Low 39.0-51.0 [facility] Comment on above: Order Comment: Speci men Type: BLOOD SPECIMENOrdering Facility: [facility] Address: [address] [place] [address] Performed By: #### 5 7021-8 ####[facility] [id number] [place] [address] [place] Hemoglobin (Bld) [Mass/Vol] 9.7 g/dL Low 13.0-17.0 [facility] Comment on above: Order Comment: Speci men Type: BLOOD SPECIMENOrdering Facility: [facility] Address: [address] [place] [address] Performed By: #### 5 7021-8 ####[facility] [id number] [place] [address] [place] Immature granulocytes (Bld) [#/Vol] 10*3/uL Normal <0.10 [facility] Comment on above: Order Comment: Speci men Type: BLOOD SPECIMENOrdering Facility: [facility] Address: [address] [place] [address] Performed By: #### 5 7021-8 ####[facility] [id number] [place] [address] [place] Immature granulocytes/100 WBC (Bld) 0.3 % Normal [facility] Comment on above: Order Comment: Speci men Type: BLOOD SPECIMENOrdering Facility: [facility] Address: [address] [place] [address] Performed By: #### 5 7021-8 ####[facility] [id number] [place] [address] [place] Lymphocytes (Bld) [#/Vol] 0.73 10*3/uL Low 1.00-4.00 [facility] Comment on above: Order Comment: Speci men Type: BLOOD SPECIMENOrdering Facility: [facility] Address: [address] [place] [address] Performed By: #### 5 7021-8 ####[facility] TEDDYGANESH [id number] [place] [address] [place] Lymphocytes/100 WBC (Bld) 22.0 % Normal [facility] Comment on above: Order Comment: Speci men Type: BLOOD SPECIMENOrdering Facility: [facility] Address: [address] [place] [address] Performed By: #### 5 7021-8 ####[facility] HOSPITALNCCARLO [id number] [place] [address] [place] MCH (RBC) [Entitic mass] 29.6 pg Normal 26.0-34.0 [facility] Comment on above: Order Comment: Speci men Type: BLOOD SPECIMENOrdering Facility: [facility] Address: [address] [place] [address] Performed By: #### 5 7021-8 ####[facility] HOSPITALNCMckenna [id number] [place] [address] [place] MCHC (RBC) [Mass/Vol] 31.2 g/dL Normal 30.5-36.0 [facility] Comment on above: Order Comment: Speci men Type: BLOOD SPECIMENOrdering Facility: [facility] Address: [address] [place] [address] Performed By: #### 5 7021-8 ####[facility] HOSPITALNCLIA [id number] [place] [address] [place] MCV (RBC) [Entitic vol] 94.8 fL Normal 80.0-100.0 [facility] Comment on above: Order Comment: Speci men Type: BLOOD SPECIMENOrdering Facility: [facility] Address: [address] [place] [address] Performed By: #### 5 7021-8 ####[facility] MILLTOWNCLIA [id number] [place] [address] [place] Monocytes (Bld) [#/Vol] 0.45 10*3/uL Normal <0.87 [facility] Comment on above: Order Comment: Speci men Type: BLOOD SPECIMENOrdering Facility: [facility] Address: [address] [place] [address] Performed By: #### 5 7021-8 ####[facility] NORTHLIA [id number] [place] [address] [place] Monocytes/100 WBC (Bld) 13.6 % Normal [facility] Comment on above: Order Comment: Speci men Type: BLOOD SPECIMENOrdering Facility: [facility] Address: [address] [place] [address] Performed By: #### 5 7021-8 ####[facility] NORTHLIA [id number] [place] [address] [place] Neutrophils (Bld) [#/Vol] 2.07 10*3/uL Normal 1.45-7.50 [facility] Comment on above: Order Comment: Speci men Type: BLOOD SPECIMENOrdering Facility: [facility] Address: [address] [place] [address] Performed By: #### 5 7021-8 ####[facility] HOSPITALNCLIA [id number] [place] [address] [place] Neutrophils/100 WBC (Bld) 62.3 % Normal [facility] Comment on above: Order Comment: Speci men Type: BLOOD SPECIMENOrdering Facility: [facility] Address: [address] [place] [address] Performed By: #### 5 7021-8 ####[facility] HOSPITALNCLIA [id number] [place] [address] [place] Nucleated RBC (Bld) [#/Vol] 10*3/uL Normal <0.01 [facility] Comment on above: Order Comment: Speci men Type: BLOOD SPECIMENOrdering Facility: [facility] Address: [address] [place] [address] Performed By: #### 5 7021-8 ####[facility] [id number] [place] [address] [place] Nucleated RBC/100 WBC (Bld) [Ratio] 0.0 /100 WBC Normal [facility] Comment on above: Order Comment: Speci men Type: BLOOD SPECIMENOrdering Facility: [facility] Address: [address] [place] [address] Performed By: #### 5 7021-8 ####[facility] [id number] [place] [address] [place] Platelet mean volume (Bld) [Entitic vol] 9.1 fL Normal 9.0-12.7 [facility] Comment on above: Order Comment: Speci men Type: BLOOD SPECIMENOrdering Facility: [facility] Address: [address] [place] [address] Performed By: #### 5 7021-8 ####[facility] [id number] [place] [address] [place] Platelets (Bld) [#/Vol] 118 10*3/uL Low 150-400 [facility] Comment on above: Order Comment: Speci men Type: BLOOD SPECIMENOrdering Facility: [facility] Address: [address] [place] [address] Performed By: #### 5 7021-8 ####[facility]OSPITALNCLIA [id number] [place] [address] [place] RBC (Bld) [#/Vol] 3.28 10*6/uL Low 4.20-6.00 [facility] Comment on above: Order Comment: Speci men Type: BLOOD SPECIMENOrdering Facility: [facility] Address: [address] [place] [address] Performed By: #### 5 7021-8 ####[facility] CLAU SCHNEIDERNCLIA [id number] [place] [address] [place] WBC (Bld) [#/Vol] 3.32 10*3/uL Low 3.70-11.00 [facility] Comment on above: Order Comment: Speci men Type: BLOOD SPECIMENOrdering Facility: [facility] Address: [address] [place] [address] Performed By: #### 5 7021-8 ####[facility]PITALNCLIA [id number] [place] [address] [place] CEA SerPl-mCncon 05-11-2024 Carcinoembryonic Ag [Mass/Vol] 28.1 ng/mL High <=2.9 [facility] Comment on above: Order Comment: Speci men Type: BLOOD SPECIMENOrdering Facility: [facility] Address: [address] [place] [address] Result Comment: Carc inoembryonic antigen test is used as an aid in monitoring response to treatment or recurrence in patients with established colorectal, breast, lung, prostatic, pancreatic, and ovarian carcinomas. Clinical correlation is required.The Carcinoembryonic antigen test was performed using the [employer] Iv[employer] Unicel DXI paramagnetic particle chemiluminescent immunoassay method. Results obtained with different assay methods or kits cannot be used interchangeably. Performed By: #### 2 039-6 ####[facility] LABCLIA [id number] [place] [address] [place] Comprehensive metabolic 2000 panelOrdered By: Silvina Garibay on 05-11-2024 Albumin [Mass/Vol] 3.9 g/dL 3.9 - 4.9 g/dL [facility] ALP [Catalytic activity/Vol] 128 U/L High 38 - 113 U/L [facility] ALT [Catalytic activity/Vol] 11 U/L 10 - 54 U/L [facility] Anion gap [Moles/Vol] 10 mmol/L 8 - 15 mmol/L [facility] AST [Catalytic activity/Vol] 17 U/L 14 - 40 U/L [facility] Bilirubin [Mass/Vol] 0.6 mg/dL 0.2 - 1 .3 mg/dL [facility] Calcium [Mass/Vol] 9.1 mg/dL 8.5 - 10. 2 mg/dL [facility] Chloride [Moles/Vol] 100 mmol/L 98 - 10 7 mmol/L [facility] CO2 [Moles/Vol] 26 mmol/L 22 - 30 mmol/L [facility] Creatinine [Mass/Vol] 0.82 mg/dL 0.73 - 1.22 mg/dL [facility] GFR/1.73 sq M.predicted among non-blacks MDRD (S/P/Bld) [Vol rate/Area] 91 mL/min/{1.73_m2} - PINF [facility] Comment on above: Estimated Glomerular Filtration Rate (eGFR) is calculated using the 2020 CKD-EPI creatinine equation. This equation utilizes serum creatinine, sex, and age as parameters. The creatinine assay has traceable calibration to isotope dilution-mass spectrometry. Refer to KDIGO guidelines for clinical interpretation. In patients with unstable renal function, e.g. those with acute kidney injury, the eGFR may not accurately reflect actual GFR. Glucose [Mass/Vol] 259 mg/dL High 74 - 99 mg/dL [facility] Comment on above: The [place] [employer] [place] [employer] (ADA) provides guidance for cutoff values for fasting glucose and random glucose. The ADA defines fasting as no caloric intake for at least 8 hours. Fasting plasma glucose results between 100 to 125 mg/dL indicate increased risk for diabetes (prediabetes). Fasting plasma glucose results greater than or equal to 126 mg/dL meet the criteria for diagnosis of diabetes. In the absence of unequivocal hyperglycemia, results should be confirmed by repeat testing. In a patient with classic symptoms of hyperglycemia or hyperglycemic crisis, random plasma glucose results greater than or equal to 200 mg/dL meet the criteria for diagnosis of diabetes. Reference: Standards of Medical Care in Diabetes 2016, [place] [employer]. Diabetes Care. 2016.39(Suppl 1). Interpretation and review of laboratory results Abnormal [facility] Potassium [Moles/Vol] 3.7 mmol/L 3.7 - 5.1 mmol/L [facility] Protein [Mass/Vol] 6.6 g/dL 6.3 - 8.0 g/dL [facility] Sodium [Moles/Vol] 136 mmol/L 136 - 144 mmol/L [facility] Urea nitrogen [Mass/Vol] 18 mg/dL 9 - 24 mg/dL [facility] Comprehensive metabolic 2000 panelon 05-11-2024 Albumin [Mass/Vol] 3.9 g/dL Normal 3.9-4.9 [facility] Comment on above: Order Comment: Speci men Type: BLOOD SPECIMENOrdering Facility: [facility] Address: [address] [place] [address] Performed By: #### 2 4323-8, ####[facility] HOSPITALBANG [id number] [place] [address] [place] ALP [Catalytic activity/Vol] 128 U/L High 38-113 [facility] Comment on above: Order Comment: Speci men Type: BLOOD SPECIMENOrdering Facility: [facility] Address: [address] [place] [address] Performed By: #### 2 4323-8, ####[facility] HOSPITALFALGUNIA [id number] [place] [address] [place] ALT [Catalytic activity/Vol] 11 U/L Normal 10-54 [facility] Comment on above: Order Comment: Speci men Type: BLOOD SPECIMENOrdering Facility: [facility] Address: [address] [place] [address] Performed By: #### 2 4323-8, ####[facility] HOSPITALGIANNALIA [id number] [place] [address] [place] Anion gap [Moles/Vol] 10 mmol/L Normal 8-15 [facility] Comment on above: Order Comment: Speci men Type: BLOOD SPECIMENOrdering Facility: [facility] Address: [address] [place] [address] Performed By: #### 2 4323-8, ####[facility] CLAU MILLTOWNCLIA [id number] [place] [address] [place] AST [Catalytic activity/Vol] 17 U/L Normal 14-40 [facility] Comment on above: Order Comment: Speci men Type: BLOOD SPECIMENOrdering Facility: [facility] Address: [address] [place] [address] Performed By: #### 2 4323-8, ####[facility] MILLTOWNCLIA [id number] [place] [address] [place] Bilirubin [Mass/Vol] 0.6 mg/dL Normal 0.2-1.3 [facility] Comment on above: Order Comment: Speci men Type: BLOOD SPECIMENOrdering Facility: [facility] Address: [address] [place] [address] Performed By: #### 2 432-8, ####[facility] MILLTOWNCLIA [id number] [place] [address] [place] Calcium [Mass/Vol] 9.1 mg/dL Normal 8.5-10.2 [facility] Comment on above: Order Comment: Speci men Type: BLOOD SPECIMENOrdering Facility: [facility] Address: [address] [place] [address] Performed By: #### 2 4323-8, ####[facility] MILLTOWNCLIA [id number] [place] [address] [place] Chloride [Moles/Vol] 100 mmol/L Normal 98-107 [facility] Comment on above: Order Comment: Speci men Type: BLOOD SPECIMENOrdering Facility: [facility] Address: [address] [place] [address] Performed By: #### 2 4323-8, ####[facility] MILLTOWNCLIA [id number] [place] [address] [place] CO2 [Moles/Vol] 26 mmol/L Normal 22-30 [facility] Comment on above: Order Comment: Speci men Type: BLOOD SPECIMENOrdering Facility: [facility] Address: [address] [place] [address] Performed By: #### 2 4323-8, ####[facility] [id number] [place] [address] [place] Creatinine [Mass/Vol] 0.82 mg/dL Normal 0.73-1.22 [facility] Comment on above: Order Comment: Speci men Type: BLOOD SPECIMENOrdering Facility: [facility] Address: [address] [place] [address] Performed By: #### 2 4323-8, ####[facility] [id number] [place] [address] [place] Creatinine and Glomerular filtration rate.predicted panel (S/P/Bld) 91 mL/min/1.73m??? Normal >=60 [facility] Comment on above: Order Comment: Speci men Type: BLOOD SPECIMENOrdering Facility: [facility] Address: [address] [place] [address] Result Comment: Rod mated Glomerular Filtration Rate (eGFR) is calculated using the 2020 CKD-EPI creatinine equation. This equation utilizes serum creatinine, sex, and age as parameters. The creatinine assay has traceable calibration to isotope dilution-mass spectrometry. Refer to KDIGO guidelines for clinical interpretation. In patients with unstable renal function, e.g. those with acute kidney injury, the eGFR may not accurately reflect actual GFR. Performed By: #### 2 4323-8, ####[facility]CLI [id number] [place] [address] [place] Glucose [Mass/Vol] 259 mg/dL High 74-99 [facility] Comment on above: Order Comment: Willam robles Type: BLOOD SPECIMENOrdering Facility: [facility] Address: [address] [place], [place] [address] Result Comment: The [place] Diabetes Association (ADA) provides guidance for cutoff values for fasting glucose and random glucose. The ADA defines fasting as no caloric intake for at least 8 hours. Fasting plasma glucose results between 100 to 125 mg/dL indicate increased risk for diabetes (prediabetes).Fasting plasma glucose results greater than or equal to 126 mg/dL meet the criteria for diagnosis of diabetes. In the absence of unequivocal hyperglycemia, results should be confirmed by repeat testing. In a patient with classic symptoms of hyperglycemia or hyperglycemic crisis, random plasma glucose results greater than or equal to 200 mg/dL meet the criteria for diagnosis of diabetes.Reference: Standards of Medical Care in Diabetes 2016, [place] Diabetes Association. Diabetes Care. 2016.39(Suppl 1). Performed By: #### 2 4323-8, 87736-1 ####[facility] CLAUMAYO MEMORIAL HOSPITALGANESH [id number] [place] [address] [place] Potassium [Moles/Vol] 3.7 mmol/L Normal 3.7-5.1 [facility] Comment on above: Order Comment: Willam robles Type: BLOOD SPECIMENOrdering Facility: [facility] Address: [address] [place], [place] [address] Performed By: #### 2 4323-8, 23960-9 ####[facility] XIMENABANG [id number] [place] [address] [place] Protein [Mass/Vol] 6.6 g/dL Normal 6.3-8.0 [facility] Comment on above: Order Comment: Willam robles Type: BLOOD SPECIMENOrdering Facility: [facility] Address: [address] [place], [place] [address] Performed By: #### 2 4323-8, 49909-3 ####[facility]PITALBANG [id number] [place] [address] [place] Sodium [Moles/Vol] 136 mmol/L Normal 136-144 [facility] Comment on above: Order Comment: Speci men Type: BLOOD SPECIMENOrdering Facility: [facility] Address: [address] [place], [place] [address] Performed By: #### 2 4323-8, ####[facility]ITALNCLIA [id number] [place] [address] [place] Urea nitrogen [Mass/Vol] 18 mg/dL Normal 9-24 [facility] Comment on above: Order Comment: Speci men Type: BLOOD SPECIMENOrdering Facility: [facility] Address: [address] [place] [address] Performed By: #### 2 4323-8, ####[facility]ITALNCLIA [id number] [place] [address] [place] MAGNESIUMon 05-11-2024 Magnesium [Mass/Vol] 1.8 mg/dL 1.7 - 2 .3 mg/dL [facility] Magnesium SerPl-mCncon 05-11 Magnesium [Mass/Vol] 1.8 mg/dL Normal 1.7-2.3 [facility] Comment on above: Order Comment: Speci men Type: BLOOD SPECIMENOrdering Facility: [facility] Address: [address] [place] [address] Performed By: #### 2 4323-8, ####[facility] NORTHLIA [id number] [place] [address] [place] Magnesium [Mass/Vol]on 05-11 Interpretation and review of laboratory results Normal [facility] No Panel InformationOrdered By: Silvina Garibay on 05-11-2024 [facility] UA DIP, URINE (POC)on 2023 BILIRUBIN UA (POCT) Negative Negative [facility] CLARITY UA (POCT) Clear [facility] COLOR UA (POCT) Yellow [facility] GLUCOSE UA (POCT) Negative Negative mg/dL [facility] Hemoglobin Ql (U) Negative Negative [facility] KETONE UA (POCT) Negative Negative mg/dL [facility] LEUKOCYTES UA (POCT) Negative Negative [facility] NITRITE UA (POCT) Negative Negative [facility] PH UA (POCT) 7.5 4.5 - 8.0 [facility] Protein Ql (U) Negative Negative mg/dL [facility] SPECIFIC GRAVITY UA (POCT) 1.020 1.005 - 1.030 [facility] UROBILINOGEN UA (POCT) 0.2 Normal E.U./dL [facility] Location:[facility], [address] , [place], [address] [facility] POINT OF CARE [facility] CBC W Auto Differential pane l (Bld)on 04-26-2024 Basophils (Bld) [#/Vol] [facility] Basophils/100 WBC (Bld) 0.0 % [facility] Differential cell count method Nom (Bld) Auto [facility] Eosinophils (Bld) [#/Vol] 0.07 10*3/uL [facility] Eosinophils/100 WBC (Bld) 2.0 % [facility] Erythrocyte distribution width (RBC) [Ratio] 22.9 % High 11.5 - 15.0 % [facility] Hematocrit (Bld) [Volume fraction] 32.7 % Low 39.0 - 51.0 % [facility] Hemoglobin (Bld) [Mass/Vol] 9.9 g/dL Low 13.0 - 17.0 g/dL [facility] Immature granulocytes (Bld) [#/Vol] 0.03 10*3/uL [facility] Immature granulocytes/100 WBC (Bld) 0.9 % [facility] Interpretation and review of laboratory results Abnormal [facility] Lymphocytes (Bld) [#/Vol] 0.82 10*3/uL Low [facility] Lymphocytes/100 WBC (Bld) 23.7 % [facility] MCH (RBC) [Entitic mass] 28.8 pg 26.0 - 34.0 pg [facility] MCHC (RBC) [Mass/Vol] 30.3 g/dL Low 30.5 - 36.0 g/dL [facility] MCV (RBC) [Entitic vol] 95.1 fL 80.0 - 100.0 fL [facility] Monocytes (Bld) [#/Vol] 0.39 10*3/uL NINF [facility] Monocytes/100 WBC (Bld) 11.3 % [facility] Neutrophils (Bld) [#/Vol] 2.15 10*3/uL [facility] Neutrophils/100 WBC (Bld) 62.1 % [facility] Nucleated RBC (Bld) [#/Vol] NINF [facility] Nucleated RBC/100 WBC (Bld) [Ratio] 0.0 % /100 WBC [facility] Platelet mean volume (Bld) [Entitic vol] 9.4 fL 9.0 - 12.7 fL [facility] Platelets (Bld) [#/Vol] 133 10*3/uL Low [facility] RBC (Bld) [#/Vol] 3.44 10*6/uL Low 4.20 - 6.0 0 m/uL [facility] WBC (Bld) [#/Vol] 3.46 10*3/uL Low [facility] Basophils (Bld) [#/Vol] 10*3/uL Normal <0.11 [facility] Comment on above: Order Comment: Speci men Type: BLOOD SPECIMENOrdering Facility: [facility] Address: [address] [place] [address] Performed By: #### 5 7021-8 ####[facility] [id number] [place] [address] [place] Basophils/100 WBC (Bld) 0.0 % Normal [facility] Comment on above: Order Comment: Speci men Type: BLOOD SPECIMENOrdering Facility: [facility] Address: [address] [place] [address] Performed By: #### 5 7021-8 ####[facility] [id number] [place] [address] [place] Differential cell count method Nom (Bld) Auto Normal [facility] Comment on above: Order Comment: Speci men Type: BLOOD SPECIMENOrdering Facility: [facility] Address: [address] [place] [address] Performed By: #### 5 7021-8 ####[facility] MILLWNCLIA [id number] [place] [address] [place] Eosinophils (Bld) [#/Vol] 0.07 10*3/uL Normal <0.46 [facility] Comment on above: Order Comment: Speci men Type: BLOOD SPECIMENOrdering Facility: [facility] Address: [address] [place] [address] Performed By: #### 5 7021-8 ####[facility] NORTHLIA [id number] [place] [address] [place] Eosinophils/100 WBC (Bld) 2.0 % Normal [facility] Comment on above: Order Comment: Speci men Type: BLOOD SPECIMENOrdering Facility: [facility] Address: [address] [place] [address] Performed By: #### 5 7021-8 ####[facility] NORTHLIA [id number] [place] [address] [place] Erythrocyte distribution width (RBC) [Ratio] 22.9 % High 11.5-15.0 [facility] Comment on above: Order Comment: Speci men Type: BLOOD SPECIMENOrdering Facility: [facility] Address: [address] [place] [address] Performed By: #### 5 7021-8 ####[facility] NORTHLIA [id number] [place] [address] [place] Hematocrit (Bld) [Volume fraction] 32.7 % Low 39.0-51.0 [facility] Comment on above: Order Comment: Speci men Type: BLOOD SPECIMENOrdering Facility: [facility] Address: [address] [place] [address] Performed By: #### 5 7021-8 ####[facility]ITALNCLIA [id number] [place] [address] [place] Hemoglobin (Bld) [Mass/Vol] 9.9 g/dL Low 13.0-17.0 [facility] Comment on above: Order Comment: Speci men Type: BLOOD SPECIMENOrdering Facility: [facility] Address: [address] [place] [address] Performed By: #### 5 7021-8 ####[facility] HOSPITALNCA [id number] [place] [address] [place] Immature granulocytes (Bld) [#/Vol] 0.03 10*3/uL Normal <0.10 [facility] Comment on above: Order Comment: Speci men Type: BLOOD SPECIMENOrdering Facility: [facility] Address: [address] [place] [address] Performed By: #### 5 7021-8 ####[facility] [id number] [address] [place] Immature granulocytes/100 WBC (Bld) 0.9 % Normal [facility] Comment on above: Order Comment: Speci men Type: BLOOD SPECIMENOrdering Facility: [facility] Address: [address] [place] [address] Performed By: #### 5 7021-8 ####[facility] [id number] [place] [address] [place] Lymphocytes (Bld) [#/Vol] 0.82 10*3/uL Low 1.00-4.00 [facility] Comment on above: Order Comment: Speci men Type: BLOOD SPECIMENOrdering Facility: [facility] Address: [address] [place] [address] Performed By: #### 5 7021-8 ####[facility]OS[facility]ITALNCLIA [id number] [place] [address] [place] Lymphocytes/100 WBC (Bld) 23.7 % Normal [facility] Comment on above: Order Comment: Speci men Type: BLOOD SPECIMENOrdering Facility: [facility] Address: [address] [place] [address] Performed By: #### 5 7021-8 ####[facility] TEDDYBAYARDBANG [id number] [place] [address] [place] MCH (RBC) [Entitic mass] 28.8 pg Normal 26.0-34.0 [facility] Comment on above: Order Comment: Speci men Type: BLOOD SPECIMENOrdering Facility: [facility] Address: [address] [place] [address] Performed By: #### 5 7021-8 ####[facility] HOSPITALNCMckenna [id number] [place] [address] [place] MCHC (RBC) [Mass/Vol] 30.3 g/dL Low 30.5-36.0 [facility] Comment on above: Order Comment: Speci men Type: BLOOD SPECIMENOrdering Facility: [facility] Address: [address] [place] [address] Performed By: #### 5 7021-8 ####[facility] [id number] [place] [address] [place] MCV (RBC) [Entitic vol] 95.1 fL Normal 80.0-100.0 [facility] Comment on above: Order Comment: Speci men Type: BLOOD SPECIMENOrdering Facility: [facility] Address: [address] [place] [address] Performed By: #### 5 7021-8 ####[facility] HOSPITALNCA [id number] [place] [address] [place] Monocytes (Bld) [#/Vol] 0.39 10*3/uL Normal <0.87 [facility] Comment on above: Order Comment: Speci men Type: BLOOD SPECIMENOrdering Facility: [facility] Address: [address] [place] [address] Performed By: #### 5 7021-8 ####[facility] MILLWNCLIA [id number] [place] [address] [place] Monocytes/100 WBC (Bld) 11.3 % Normal [facility] Comment on above: Order Comment: Speci men Type: BLOOD SPECIMENOrdering Facility: [facility] Address: [address] [place] [address] Performed By: #### 5 7021-8 ####[facility]OSPITALNCLIA [id number] [place] [address] [place] Neutrophils (Bld) [#/Vol] 2.15 10*3/uL Normal 1.45-7.50 [facility] Comment on above: Order Comment: Speci men Type: BLOOD SPECIMENOrdering Facility: [facility] Address: [address] [place] [address] Performed By: #### 5 7021-8 ####[facility] NORTHLIA [id number] [place] [address] [place] Neutrophils/100 WBC (Bld) 62.1 % Normal [facility] Comment on above: Order Comment: Speci men Type: BLOOD SPECIMENOrdering Facility: [facility] Address: [address] [place] [address] Performed By: #### 5 7021-8 ####[facility] NORTHLIA [id number] [place] [address] [place] Nucleated RBC (Bld) [#/Vol] 10*3/uL Normal <0.01 [facility] Comment on above: Order Comment: Speci men Type: BLOOD SPECIMENOrdering Facility: [facility] Address: [address] [place] [address] Performed By: #### 5 7021-8 ####[facility]OSPITALNCLIA [id number] [place] [address] [place] Nucleated RBC/100 WBC (Bld) [Ratio] 0.0 /100 WBC Normal [facility] Comment on above: Order Comment: Speci men Type: BLOOD SPECIMENOrdering Facility: [facility] Address: [address] [place] [address] Performed By: #### 5 7021-8 ####[facility] HOSPITALNCBECKYA [id number] [place] [address] [place] Platelet mean volume (Bld) [Entitic vol] 9.4 fL Normal 9.0-12.7 [facility] Comment on above: Order Comment: Speci men Type: BLOOD SPECIMENOrdering Facility: [facility] Address: [address] [place] [address] Performed By: #### 5 7021-8 ####[facility] HOSPITALNCA [id number] [place] [address] [place] Platelets (Bld) [#/Vol] 133 10*3/uL Low 150-400 [facility] Comment on above: Order Comment: Speci men Type: BLOOD SPECIMENOrdering Facility: [facility] Address: [address] [place] [address] Performed By: #### 5 7021-8 ####[facility] HOSPITALNCA [id number] [place] [address] [place] RBC (Bld) [#/Vol] 3.44 10*6/uL Low 4.20-6.00 [facility] Comment on above: Order Comment: Speci men Type: BLOOD SPECIMENOrdering Facility: [facility] Address: [address] [place] [address] Performed By: #### 5 7021-8 ####[facility]OSPITALNCLIA [id number] [place] [address] [place] WBC (Bld) [#/Vol] 3.46 10*3/uL Low 3.70-11.00 [facility] Comment on above: Order Comment: Speci men Type: BLOOD SPECIMENOrdering Facility: [facility] Address: [address] [place], [place] [address] [address] Performed By: #### 5 7021-8 ####[facility] CLAU ESPINALBAYARDGIANNALIMckenna [id number] [place] [address] [place] CEA SerPl-mCncon 04-26-2024 Carcinoembryonic Ag [Mass/Vol] 25.6 ng/mL High <=2.9 [facility] Comment on above: Order Comment: Speci men Type: BLOOD SPECIMENOrdering Facility: [facility] Address: [address] [address] Result Comment: Carc inoembryonic antigen test is used as an aid in monitoring response to treatment or recurrence in patients with established colorectal, breast, lung, prostatic, pancreatic, and ovarian carcinomas. Clinical correlation is required.The Carcinoembryonic antigen test was performed using the [employer] DXI paramagnetic particle chemiluminescent immunoassay method. Results obtained with different assay methods or kits cannot be used interchangeably. Performed By: #### 2 039-6 ####[facility] LABCLIA [id number] [place] [address] [place] CNOVSPon 04-26-2024 CNOVSP Normal [facility] metabolic 2000 panelon 04-26-2024 Albumin [Mass/Vol] 3.5 g/dL Low 3.9 - 4.9 g/dL [facility] ALP [Catalytic activity/Vol] 78 U/L 38 - 113 U/L [facility] ALT With P-5'-P [Catalytic activity/Vol] 10 U/L 10 - 54 U/L [facility] Anion gap [Moles/Vol] 9 mmol/L 8 - 15 mmol/L [facility] AST With P-5'-P [Catalytic activity/Vol] 15 U/L 14 - 40 U/L [facility] Bilirubin [Mass/Vol] 0.6 mg/dL 0.2 - 1 .3 mg/dL [facility] Calcium [Mass/Vol] 9.2 mg/dL 8.5 - 10. 2 mg/dL [facility] Chloride [Moles/Vol] 102 mmol/L 98 - 10 7 mmol/L [facility] CO2 [Moles/Vol] 27 mmol/L 22 - 30 mmol/L [facility] Creatinine [Mass/Vol] 0.80 mg/dL 0.73 - 1.22 mg/dL [facility] GFR/1.73 sq M.predicted among non-blacks MDRD (S/P/Bld) [Vol rate/Area] 92 mL/min/{1.73_m2} - PINF [facility] Comment on above: Estimated Glomerular Filtration Rate (eGFR) is calculated using the 2020 CKD-EPI creatinine equation. This equation utilizes serum creatinine, sex, and age as parameters. The creatinine assay has traceable calibration to isotope dilution-mass spectrometry. Refer to KDIGO guidelines for clinical interpretation. In patients with unstable renal function, e.g. those with acute kidney injury, the eGFR may not accurately reflect actual GFR. Glucose [Mass/Vol] 188 mg/dL High 74 - 99 mg/dL [facility] Comment on above: The [place] Di[employer] [place] Association (ADA) provides guidance for cutoff values for fasting glucose and random glucose. The ADA defines fasting as no caloric intake for at least 8 hours. Fasting plasma glucose results between 100 to 125 mg/dL indicate increased risk for diabetes (prediabetes). Fasting plasma glucose results greater than or equal to 126 mg/dL meet the criteria for diagnosis of diabetes. In the absence of unequivocal hyperglycemia, results should be confirmed by repeat testing. In a patient with classic symptoms of hyperglycemia or hyperglycemic crisis, random plasma glucose results greater than or equal to 200 mg/dL meet the criteria for diagnosis of diabetes. Reference: Standards of Medical Care in Diabetes 2016, [place] [employer]. Diabetes Care. 2016.39(Suppl 1). Interpretation and review of laboratory results Abnormal [facility] Potassium [Moles/Vol] 4.1 mmol/L 3.7 - 5.1 mmol/L [facility] Protein [Mass/Vol] 6.7 g/dL 6.3 - 8.0 g/dL [facility] Sodium [Moles/Vol] 138 mmol/L 136 - 144 mmol/L [facility] Urea nitrogen [Mass/Vol] 15 mg/dL 9 - 24 mg/dL [facility] Albumin [Mass/Vol] 3.5 g/dL Low 3.9-4.9 [facility] Comment on above: Order Comment: Speci men Type: BLOOD SPECIMENOrdering Facility: [facility] Address: [address] [place] [address] Performed By: #### 2 4323-8, ####[facility] LABCLIA [id number] [facility] [place] [address] [place] ALP [Catalytic activity/Vol] 78 U/L Normal 38-113 [facility] Comment on above: Order Comment: Speci men Type: BLOOD SPECIMENOrdering Facility: [facility] Address: [address] [place], [place] [address] Performed By: #### 2 4323-8, ####[facility] LABCLIA [id number] [facility] [place] [address] [place] ALT With P-5'-P [Catalytic activity/Vol] 10 U/L Normal 10-54 [facility] Comment on above: Order Comment: Speci men Type: BLOOD SPECIMENOrdering Facility: [facility] Address: [address] [place] [address] Performed By: #### 2 4323-8, ####[facility] LABCLIA [id number] [place] [address] [place] Anion gap [Moles/Vol] 9 mmol/L Normal 8-15 [facility] Comment on above: Order Comment: Speci men Type: BLOOD SPECIMENOrdering Facility: [facility] Address: [address] [place] [address] Performed By: #### 2 4323-8, ####[facility] LABCLIA [id number] [facility] [place] [address] [place] AST With P-5'-P [Catalytic activity/Vol] 15 U/L Normal 14-40 [facility] Comment on above: Order Comment: Speci men Type: BLOOD SPECIMENOrdering Facility: [facility] Address: [address] [place] [address] Performed By: #### 2 432-8, ####[facility] [place] LABCLIA [id number] [place] [address] [place] Bilirubin [Mass/Vol] 0.6 mg/dL Normal 0.2-1.3 [facility] Comment on above: Order Comment: Speci men Type: BLOOD SPECIMENOrdering Facility: [facility] Address: [address] [place] [address] Performed By: #### 2 43209-03, ####[facility] [place] LABCLIA [id number] [place] [address] [place] Calcium [Mass/Vol] 9.2 mg/dL Normal 8.5-10.2 [facility] Comment on above: Order Comment: Speci men Type: BLOOD SPECIMENOrdering Facility: [facility] Address: [address] [place] [address] Performed By: #### 2 43209-03, ####[facility] [place] LABCLIA [id number] [place] [address] [place] Chloride [Moles/Vol] 102 mmol/L Normal 98-107 [facility] Comment on above: Order Comment: Speci men Type: BLOOD SPECIMENOrdering Facility: [facility] Address: [address] [place] [address] Performed By: #### 2 43209-03, ####[facility] [place] LABCLIA [id number] [place] [address] [place] CO2 [Moles/Vol] 27 mmol/L Normal 22-30 [facility] Comment on above: Order Comment: Speci men Type: BLOOD SPECIMENOrdering Facility: [facility] Address: [address] [place] [address] Performed By: #### 2 4323-8, ####[facility] [place] LABCLIA [id number] [place] [address] [place] Creatinine [Mass/Vol] 0.80 mg/dL Normal 0.73-1.22 [facility] Comment on above: Order Comment: Willam robles Type: BLOOD SPECIMENOrdering Facility: [facility] Address: [address] [place] [address] Performed By: #### 2 4323-8, ####[facility] [employer] LABCLIA [id number] [place] [address] [place] Creatinine and Glomerular filtration rate.predicted panel (S/P/Bld) 92 mL/min/1.73m??? Normal >=60 [facility] Comment on above: Order Comment: Willam robles Type: BLOOD SPECIMENOrdering Facility: [facility] Address: [address] [place] [address] Result Comment: Rod mated Glomerular Filtration Rate (eGFR) is calculated using the 2020 CKD-EPI creatinine equation. This equation utilizes serum creatinine, sex, and age as parameters. The creatinine assay has traceable calibration to isotope dilution-mass spectrometry. Refer to KDIGO guidelines for clinical interpretation. In patients with unstable renal function, e.g. those with acute kidney injury, the eGFR may not accurately reflect actual GFR. Performed By: #### 2 4323-8, ####[facility] [employer] LABCLIA [id number] [place] [address] [place] Glucose [Mass/Vol] 188 mg/dL High 74-99 [facility] Comment on above: Order Comment: Willam robles Type: BLOOD SPECIMENOrdering Facility: [facility] Address: [address] [id number] Result Comment: The [place] Diabetes Association (ADA) provides guidance for cutoff values for fasting glucose and random glucose. The ADA defines fasting as no caloric intake for at least 8 hours. Fasting plasma glucose results between 100 to 125 mg/dL indicate increased risk for diabetes (prediabetes).Fasting plasma glucose results greater than or equal to 126 mg/dL meet the criteria for diagnosis of diabetes. In the absence of unequivocal hyperglycemia, results should be confirmed by repeat testing. In a patient with classic symptoms of hyperglycemia or hyperglycemic crisis, random plasma glucose results greater than or equal to 200 mg/dL meet the criteria for diagnosis of diabetes.Reference: Standards of Medical Care in Diabetes 2016, [place] [employer]. Diabetes Care. 2016.39(Suppl 1). Performed By: #### 2 4323-8, ####[facility] [place] LABCLIA [id number] [place] [address] [place] Potassium [Moles/Vol] 4.1 mmol/L Normal 3.7-5.1 [facility] Comment on above: Order Comment: Speci men Type: BLOOD SPECIMENOrdering Facility: [facility] Address: [address] [place], [place] [address] Performed By: #### 2 43209-03, ####[facility] [place] LABCLIA [id number] [place] [address] [place] Protein [Mass/Vol] 6.7 g/dL Normal 6.3-8.0 [facility] Comment on above: Order Comment: Speci men Type: BLOOD SPECIMENOrdering Facility: [facility] Address: [address] [place], [place] [address] Performed By: #### 2 43209-03, ####[facility] [place] LABCLIA [id number] [place] [address] [place] Sodium [Moles/Vol] 138 mmol/L Normal 136-144 [facility] Comment on above: Order Comment: Speci men Type: BLOOD SPECIMENOrdering Facility: [facility] Address: [address] [place], [place] [address] Performed By: #### 2 43209-03, ####[facility] [place] LABCLIA [id number] [place] [address] [place] Urea nitrogen [Mass/Vol] 15 mg/dL Normal 9-24 [facility] Comment on above: Order Comment: Speci men Type: BLOOD SPECIMENOrdering Facility: [facility] Address: [address] [place] [address] Performed By: #### 2 43209-03, ####[facility] [place] LABCLIA [id number] [place] [address] [place] MAGNESIUMon 04-26-2024 Magnesium [Mass/Vol] 1.7 mg/dL 1.7 - 2 .3 mg/dL [facility] Magnesium SerPl-mCncon 04-26 Magnesium [Mass/Vol] 1.7 mg/dL Normal 1.7-2.3 [facility] Comment on above: Order Comment: Speci men Type: BLOOD SPECIMENOrdering Facility: [facility] Address: [address] [place] [address] Performed By: #### 2 4323-8, 50695-0 ####[facility] [place] LABCLIA [id number] [place] [address] [facility] Magnesium [Mass/Vol]on 04-26 Interpretation and review of laboratory results Normal [facility] No Panel Informationon 04-26 [facility] CBC W Auto Differential pane l (Bld)on 04-12-2024 Basophils (Bld) [#/Vol] [facility] Basophils/100 WBC (Bld) 0.2 % [facility] Differential cell count method Nom (Bld) Auto [facility] Eosinophils (Bld) [#/Vol] 0.16 10*3/uL [facility] Eosinophils/100 WBC (Bld) 3.1 % [facility] Erythrocyte distribution width (RBC) [Ratio] 23.8 % High 11.5 - 15.0 % [facility] Hematocrit (Bld) [Volume fraction] 29.7 % Low 39.0 - 51.0 % [facility] Hemoglobin (Bld) [Mass/Vol] 9.1 g/dL Low 13.0 - 17.0 g/dL [facility] Immature granulocytes (Bld) [#/Vol] [facility] Immature granulocytes/100 WBC (Bld) 0.2 % [facility] Interpretation and review of laboratory results Abnormal [facility] Lymphocytes (Bld) [#/Vol] 0.62 10*3/uL Low [facility] Lymphocytes/100 WBC (Bld) 12.2 % [facility] MCH (RBC) [Entitic mass] 27.9 pg 26.0 - 34.0 pg [facility] MCHC (RBC) [Mass/Vol] 30.6 g/dL 30.5 - 36.0 g/dL [facility] MCV (RBC) [Entitic vol] 91.1 fL 80.0 - 100.0 fL [facility] Monocytes (Bld) [#/Vol] 0.31 10*3/uL [facility] Monocytes/100 WBC (Bld) 6.1 % [facility] Neutrophils (Bld) [#/Vol] 3.99 10*3/uL [facility] Neutrophils/100 WBC (Bld) 78.2 % [facility] Nucleated RBC (Bld) [#/Vol] NINF [facility] Nucleated RBC/100 WBC (Bld) [Ratio] 0.0 % /100 WBC [facility] Platelet mean volume (Bld) [Entitic vol] 8.7 fL Low 9.0 - 12.7 fL [facility] Platelets (Bld) [#/Vol] 113 10*3/uL Low [facility] RBC (Bld) [#/Vol] 3.26 10*6/uL Low 4.20 - 6.0 0 m/uL [facility] WBC (Bld) [#/Vol] 5.10 10*3/uL [facility] Basophils (Bld) [#/Vol] 10*3/uL Normal <0.11 [facility] Comment on above: Order Comment: Speci men Type: BLOOD SPECIMENOrdering Facility: [facility] Address: [address] [place] [address] Performed By: #### 5 7021-8 ####[facility] [id number] [place] [address] [place] Basophils/100 WBC (Bld) 0.2 % Normal [facility] Comment on above: Order Comment: Speci men Type: BLOOD SPECIMENOrdering Facility: [facility] Address: [address] [place] [address] Performed By: #### 5 7021-8 ####[facility] [id number] [place] [address] [place] Differential cell count method Nom (Bld) Auto Normal [facility] Comment on above: Order Comment: Speci men Type: BLOOD SPECIMENOrdering Facility: [facility] Address: [address] [place] [address] Performed By: #### 5 7021-8 ####[facility] [id number] [place] [address] [place] Eosinophils (Bld) [#/Vol] 0.16 10*3/uL Normal <0.46 [facility] Comment on above: Order Comment: Speci men Type: BLOOD SPECIMENOrdering Facility: [facility] Address: [address] [place] [address] Performed By: #### 5 7021-8 ####[facility] [id number] [place] [address] [place] Eosinophils/100 WBC (Bld) 3.1 % Normal [facility] Comment on above: Order Comment: Speci men Type: BLOOD SPECIMENOrdering Facility: [facility] Address: [address] [place] [address] Performed By: #### 5 7021-8 ####[facility] [id number] [place] [address] [place] Erythrocyte distribution width (RBC) [Ratio] 23.8 % High 11.5-15.0 [facility] Comment on above: Order Comment: Speci men Type: BLOOD SPECIMENOrdering Facility: [facility] Address: [address] [place] [address] Performed By: #### 5 7021-8 ####[facility] [id number] [place] [address] [place] Hematocrit (Bld) [Volume fraction] 29.7 % Low 39.0-51.0 [facility] Comment on above: Order Comment: Speci men Type: BLOOD SPECIMENOrdering Facility: [facility] Address: [address] [place] [address] Performed By: #### 5 7021-8 ####[facility]CL[facility] [id number] [place] [address] [place] Hemoglobin (Bld) [Mass/Vol] 9.1 g/dL Low 13.0-17.0 [facility] Comment on above: Order Comment: Speci men Type: BLOOD SPECIMENOrdering Facility: [facility] Address: [address] [place] [address] Performed By: #### 5 7021-8 ####[facility] [id number] [place] [address] [place] Immature granulocytes (Bld) [#/Vol] 10*3/uL Normal <0.10 [facility] Comment on above: Order Comment: Speci men Type: BLOOD SPECIMENOrdering Facility: [facility] Address: [address] [place] [address] Performed By: #### 5 7021-8 ####[facility]ITALNCLIA [id number] [place] [address] [place] Immature granulocytes/100 WBC (Bld) 0.2 % Normal [facility] Comment on above: Order Comment: Speci men Type: BLOOD SPECIMENOrdering Facility: [facility] Address: [address] [place] [address] Performed By: #### 5 7021-8 ####[facility]ITAL[facility]CLIA [id number] [place] [address] [place] Lymphocytes (Bld) [#/Vol] 0.62 10*3/uL Low 1.00-4.00 [facility] Comment on above: Order Comment: Speci men Type: BLOOD SPECIMENOrdering Facility: [facility] Address: [address] [place] [address] Performed By: #### 5 7021-8 ####[facility] NORTHLIA [id number] [place] [address] [place] Lymphocytes/100 WBC (Bld) 12.2 % Normal [facility] Comment on above: Order Comment: Speci men Type: BLOOD SPECIMENOrdering Facility: [facility] Address: [address] [place] [address] Performed By: #### 5 7021-8 ####[facility]ITALBANG [id number] [place] [address] [place] MCH (RBC) [Entitic mass] 27.9 pg Normal 26.0-34.0 [facility] Comment on above: Order Comment: Speci men Type: BLOOD SPECIMENOrdering Facility: [facility] Address: [address] [place] [address] Performed By: #### 5 7021-8 ####[facility]ITALNCCARLO [id number] [place] [address] [place] MCHC (RBC) [Mass/Vol] 30.6 g/dL Normal 30.5-36.0 [facility] Comment on above: Order Comment: Speci men Type: BLOOD SPECIMENOrdering Facility: [facility] Address: [address] [place] [address] Performed By: #### 5 7021-8 ####[facility]ITALNCCARLO [id number] [place] [address] [place] MCV (RBC) [Entitic vol] 91.1 fL Normal 80.0-100.0 [facility] Comment on above: Order Comment: Speci men Type: BLOOD SPECIMENOrdering Facility: [facility] Address: [address] [place] [address] Performed By: #### 5 7021-8 ####[facility]ITALNCLI [id number] [place] [address] [place] Monocytes (Bld) [#/Vol] 0.31 10*3/uL Normal <0.87 [facility] Comment on above: Order Comment: Speci men Type: BLOOD SPECIMENOrdering Facility: [facility] Address: [address] [place] [address] Performed By: #### 5 7021-8 ####[facility]LIA [id number] [place] [address] [place] Monocytes/100 WBC (Bld) 6.1 % Normal [facility] Comment on above: Order Comment: Speci men Type: BLOOD SPECIMENOrdering Facility: [facility] Address: [address] [place] [address] Performed By: #### 5 7021-8 ####[facility] [id number] [place] [address] [place] Neutrophils (Bld) [#/Vol] 3.99 10*3/uL Normal 1.45-7.50 [facility] Comment on above: Order Comment: Speci men Type: BLOOD SPECIMENOrdering Facility: [facility] Address: [address] [place] [address] Performed By: #### 5 7021-8 ####[facility] [id number] [place] [address] [place] Neutrophils/100 WBC (Bld) 78.2 % Normal [facility] Comment on above: Order Comment: Speci men Type: BLOOD SPECIMENOrdering Facility: [facility] Address: [address] [place] [address] Performed By: #### 5 7021-8 ####[facility] [id number] [place] [address] [place] Nucleated RBC (Bld) [#/Vol] 10*3/uL Normal <0.01 [facility] Comment on above: Order Comment: Speci men Type: BLOOD SPECIMENOrdering Facility: [facility] Address: [address] [place] [address] Performed By: #### 5 7021-8 ####[facility] JENNIENCLIA [id number] [place] [address] [place] Nucleated RBC/100 WBC (Bld) [Ratio] 0.0 /100 WBC Normal [facility] Comment on above: Order Comment: Speci men Type: BLOOD SPECIMENOrdering Facility: [facility] Address: [address] [place] [address] Performed By: #### 5 7021-8 ####[facility]ITALNCLIA [id number] [place] [address] [place] Platelet mean volume (Bld) [Entitic vol] 8.7 fL Low 9.0-12.7 [facility] Comment on above: Order Comment: Speci men Type: BLOOD SPECIMENOrdering Facility: [facility] Address: [address] [place] [address] Performed By: #### 5 7021-8 ####[facility]ITALNCLIA [id number] [place] [address] [place] Platelets (Bld) [#/Vol] 113 10*3/uL Low 150-400 [facility] Comment on above: Order Comment: Speci men Type: BLOOD SPECIMENOrdering Facility: [facility] Address: [address] [place] [address] Performed By: #### 5 7021-8 ####[facility]ITALNCLIA [id number] [place] [address] [place] RBC (Bld) [#/Vol] 3.26 10*6/uL Low 4.20-6.00 [facility] Comment on above: Order Comment: Speci men Type: BLOOD SPECIMENOrdering Facility: [facility] Address: [address] [place] [address] Performed By: #### 5 7021-8 ####[facility] [id number] [place] [address] [place] WBC (Bld) [#/Vol] 5.10 10*3/uL Normal 3.70-11.00 [facility] Comment on above: Order Comment: Speci men Type: BLOOD SPECIMENOrdering Facility: [facility] Address: [address] [place] [address] Performed By: #### 5 7021-8 ####[facility] [id number] [place] [address] [place] CEA SerPl-mCncon 04-12-2024 Carcinoembryonic Ag [Mass/Vol] 16.3 ng/mL High <=2.9 [facility] Comment on above: Order Comment: Speci men Type: BLOOD SPECIMENOrdering Facility: [facility] Address: [address] [place] [address] Result Comment: Carc inoembryonic antigen test is used as an aid in monitoring response to treatment or recurrence in patients with established colorectal, breast, lung, prostatic, pancreatic, and ovarian carcinomas. Clinical correlation is required.The Carcinoembryonic antigen test was performed using the [employer] DXI paramagnetic particle chemiluminescent immunoassay method. Results obtained with different assay methods or kits cannot be used interchangeably. Performed By: #### 2 039-6 ####[facility] LABCLIA [id number] [place] [address] [place] CNOVSPon 04-12-2024 CNOVSP Normal [facility] Comprehensive metabolic 2000 panelOrdered By: Cody Hurtado on 04-12-2024 Albumin [Mass/Vol] 3.8 g/dL Low 3.9 - 4.9 g/dL [facility] ALP [Catalytic activity/Vol] 90 U/L 38 - 113 U/L [facility] ALT [Catalytic activity/Vol] 6 U/L Low 10 - 54 U/L [facility] Anion gap [Moles/Vol] 11 mmol/L 8 - 15 mmol/L [facility] AST [Catalytic activity/Vol] 9 U/L Low 14 - 40 U/L [facility] Bilirubin [Mass/Vol] 0.5 mg/dL 0.2 - 1 .3 mg/dL [facility] Calcium [Mass/Vol] 9.3 mg/dL 8.5 - 10. 2 mg/dL [facility] Chloride [Moles/Vol] 100 mmol/L 98 - 10 7 mmol/L [facility] CO2 [Moles/Vol] 25 mmol/L 22 - 30 mmol/L [facility] Creatinine [Mass/Vol] 0.78 mg/dL 0.73 - 1.22 mg/dL [facility] GFR/1.73 sq M.predicted among non-blacks MDRD (S/P/Bld) [Vol rate/Area] 92 mL/min/{1.73_m2} - PINF [facility] Comment on above: Estimated Glomerular Filtration Rate (eGFR) is calculated using the 2020 CKD-EPI creatinine equation. This equation utilizes serum creatinine, sex, and age as parameters. The creatinine assay has traceable calibration to isotope dilution-mass spectrometry. Refer to KDIGO guidelines for clinical interpretation. In patients with unstable renal function, e.g. those with acute kidney injury, the eGFR may not accurately reflect actual GFR. Glucose [Mass/Vol] 207 mg/dL High 74 - 99 mg/dL [facility] Comment on above: The [place] Di[employer] [place] Association (ADA) provides guidance for cutoff values for fasting glucose and random glucose. The ADA defines fasting as no caloric intake for at least 8 hours. Fasting plasma glucose results between 100 to 125 mg/dL indicate increased risk for diabetes (prediabetes). Fasting plasma glucose results greater than or equal to 126 mg/dL meet the criteria for diagnosis of diabetes. In the absence of unequivocal hyperglycemia, results should be confirmed by repeat testing. In a patient with classic symptoms of hyperglycemia or hyperglycemic crisis, random plasma glucose results greater than or equal to 200 mg/dL meet the criteria for diagnosis of diabetes. Reference: Standards of Medical Care in Diabetes 2016, [place] [employer]. Diabetes Care. 2016.39(Suppl 1). Interpretation and review of laboratory results Abnormal [facility] Potassium [Moles/Vol] 4.1 mmol/L 3.7 - 5.1 mmol/L [facility] Protein [Mass/Vol] 6.6 g/dL 6.3 - 8.0 g/dL [facility] Sodium [Moles/Vol] 136 mmol/L 136 - 144 mmol/L [facility] Urea nitrogen [Mass/Vol] 14 mg/dL 9 - 24 mg/dL [facility] Comprehensive metabolic 2000 panelon 04-12-2024 Albumin [Mass/Vol] 3.8 g/dL Low 3.9-4.9 [facility] Comment on above: Order Comment: Speci men Type: BLOOD SPECIMENOrdering Facility: [facility] Address: [address] [place] [address] Performed By: #### 1 9123-9, 73634-0 ####[facility] MILLTOWNCLIA [id number] [place] [address] [place] ALP [Catalytic activity/Vol] 90 U/L Normal 38-113 [facility] Comment on above: Order Comment: Speci men Type: BLOOD SPECIMENOrdering Facility: [facility] Address: [address] [place] [address] Performed By: #### 1 9123-9, 64275-3 ####[facility]ITALNCLIA [id number] [place] [address] [place] ALT [Catalytic activity/Vol] 6 U/L Low 10-54 [facility] Comment on above: Order Comment: Speci men Type: BLOOD SPECIMENOrdering Facility: [facility] Address: [address] [place] [address] Performed By: #### 1 9123-9, 77401-1 ####[facility] MILLWHILIA [id number] [place] [address] [place] Anion gap [Moles/Vol] 11 mmol/L Normal 8-15 [facility] Comment on above: Order Comment: Speci men Type: BLOOD SPECIMENOrdering Facility: [facility] Address: [address] [place] [address] Performed By: #### 1 9123-9, 99558-4 ####[facility]ITALNCLIA [id number] [place] [address] [place] AST [Catalytic activity/Vol] 9 U/L Low 14-40 [facility] Comment on above: Order Comment: Speci men Type: BLOOD SPECIMENOrdering Facility: [facility] Address: [address] [place] [address] Performed By: #### 1 9123-9, 66321-8 ####[facility] MILLTOWNCLIA [id number] [place] [address] [place] Bilirubin [Mass/Vol] 0.5 mg/dL Normal 0.2-1.3 [facility] Comment on above: Order Comment: Speci men Type: BLOOD SPECIMENOrdering Facility: [facility] Address: [address] [place] [address] Performed By: #### 1 9123-9, 65162-1 ####[facility]ENWNCL[facility] [id number] [place] [address] [place] Calcium [Mass/Vol] 9.3 mg/dL Normal 8.5-10.2 [facility] Comment on above: Order Comment: Speci men Type: BLOOD SPECIMENOrdering Facility: [facility] Address: [address] [place] [address] Performed By: #### 1 9123-9, 36837-7 ####[facility] [id number] [place] [address] [place] Chloride [Moles/Vol] 100 mmol/L Normal 98-107 [facility] Comment on above: Order Comment: Speci men Type: BLOOD SPECIMENOrdering Facility: [facility] Address: [address] [place] [address] Performed By: #### 1 9123-9, ####[facility] MILLTOWNCLIA [id number] [place] [address] [place] [place] CO2 [Moles/Vol] 25 mmol/L Normal 22-30 [facility] Comment on above: Order Comment: Speci men Type: BLOOD SPECIMENOrdering Facility: [facility] Address: [address] [place] [address] Performed By: #### 1 9123-9, ####[facility] CLAU JENNIENCLIA [id number] [place] [address] [place] Creatinine [Mass/Vol] 0.78 mg/dL Normal 0.73-1.22 [facility] Comment on above: Order Comment: Speci men Type: BLOOD SPECIMENOrdering Facility: [facility] Address: [address] [place] [address] Performed By: #### 1 9123-9, ####[facility]ITALNCLIA [id number] [place] [address] [place] Creatinine and Glomerular filtration rate.predicted panel (S/P/Bld) 92 mL/min/1.73m??? Normal >=60 [facility] Comment on above: Order Comment: Speci men Type: BLOOD SPECIMENOrdering Facility: [facility] Address: [address] [place] [address] Result Comment: Rod mated Glomerular Filtration Rate (eGFR) is calculated using the 2020 CKD-EPI creatinine equation. This equation utilizes serum creatinine, sex, and age as parameters. The creatinine assay has traceable calibration to isotope dilution-mass spectrometry. Refer to KDIGO guidelines for clinical interpretation. In patients with unstable renal function, e.g. those with acute kidney injury, the eGFR may not accurately reflect actual GFR. Performed By: #### 1 9123-9, ####[facility]ITALNCLIA [id number] [place] [address] [place] Glucose [Mass/Vol] 207 mg/dL High 74-99 [facility] Comment on above: Order Comment: Speci men Type: BLOOD SPECIMENOrdering Facility: [facility] Address: [address] [place] [address] Result Comment: The [place] Diabetes Association (ADA) provides guidance for cutoff values for fasting glucose and random glucose. The ADA defines fasting as no caloric intake for at least 8 hours. Fasting plasma glucose results between 100 to 125 mg/dL indicate increased risk for diabetes (prediabetes).Fasting plasma glucose results greater than or equal to 126 mg/dL meet the criteria for diagnosis of diabetes. In the absence of unequivocal hyperglycemia, results should be confirmed by repeat testing. In a patient with classic symptoms of hyperglycemia or hyperglycemic crisis, random plasma glucose results greater than or equal to 200 mg/dL meet the criteria for diagnosis of diabetes.Reference: Standards of Medical Care in Diabetes 2016, [place] Diabetes Association. Diabetes Care. 2016.39(Suppl 1). Performed By: #### 1 9123-9, 49016-2 ####[facility] HOSPITALMckenna [id number] [place] [address] [place] Potassium [Moles/Vol] 4.1 mmol/L Normal 3.7-5.1 [facility] Comment on above: Order Comment: Speci men Type: BLOOD SPECIMENOrdering Facility: [facility] Address: [address] [place] [address] Performed By: #### 1 9123-9, 81478-4 ####[facility] HOS[facility]ITALMckenna [id number] [place] [address] [place] Protein [Mass/Vol] 6.6 g/dL Normal 6.3-8.0 [facility] Comment on above: Order Comment: Speci men Type: BLOOD SPECIMENOrdering Facility: [facility] Address: [address] [id number] Performed By: #### 1 9123-9, 39616-6 ####[facility] HOS[facility]ITALA [id number] [place] [address] [place] Sodium [Moles/Vol] 136 mmol/L Normal 136-144 [facility] Comment on above: Order Comment: Speci men Type: BLOOD SPECIMENOrdering Facility: [facility] Address: [address] [place] [address] Performed By: #### 1 9123-9, 02696-4 ####[facility]ITALNCLIA [id number] [place] [id number] [place] Urea nitrogen [Mass/Vol] 14 mg/dL Normal 9-24 [facility] Comment on above: Order Comment: Speci men Type: BLOOD SPECIMENOrdering Facility: [facility] Address: [address] [place] [address] Performed By: #### 1 9123-9, 59034-3 ####[facility] [id number] [place] [address] [place] HbA1c (Bld)on 04-12-2024 Average glucose Estimated from glycated hemoglobin (Bld) [Mass/Vol] 154 mg/dL Normal [facility] Comment on above: Order Comment: Speci men Type: BLOOD SPECIMENOrdering Facility: [facility] Address: [address] [place] [address] Result Comment: eAG: (Estimated average glucose) is a calculated value from HgbA1c and is parts sales representative of the average blood glucose level in the last 2-3 month period. Performed By: #### 5 5454-3 ####[facility] LABCLIA [id number] [place] [address] [place] HbA1c (Bld) [Mass fraction] 7.0 % High 4.3-5.6 [facility] Comment on above: Order Comment: Patti men Type: BLOOD SPECIMENOrdering Facility: [facility] Address: [address] [place] [address] Result Comment: [place] Diabetes Association guidelines indicate that patients with HgbA1c in the range 5.7-6.4% are at increased risk for development of diabetes, and intervention by lifestyle modification may be beneficial. HgbA1c greater or equal to 6.5% is considered diagnostic of diabetes. Performed By: #### 5 5454-3 ####[facility] LABCLIA [id number] [address] [place] [address] [place] MAGNESIUMon 04-12-2024 Magnesium [Mass/Vol] 1.8 mg/dL 1.7 - 2 .3 mg/dL [facility] Magnesium SerPl-mCncon 04-12 Magnesium [Mass/Vol] 1.8 mg/dL Normal 1.7-2.3 [facility] Comment on above: Order Comment: Speci men Type: BLOOD SPECIMENOrdering Facility: [facility] Address: [facility] [place] [address] Performed By: #### 1 9123-9, 13699-0 ####[facility] [id number] [place] [id number] [place] Magnesium [Mass/Vol]on 04-12 Interpretation and review of laboratory results Normal [facility] No Panel InformationOrdered By: Cody Hurtado on 04-12-2024 [facility] CBC W Auto Differential pane l (Bld)on 03-29-2024 Basophils (Bld) [#/Vol] 0.04 10*3/uL [facility] Basophils/100 WBC (Bld) 0.5 % [facility] Differential cell count method Nom (Bld) Auto [facility] Eosinophils (Bld) [#/Vol] 0.06 10*3/uL [facility] Eosinophils/100 WBC (Bld) 0.8 % [facility] Erythrocyte distribution width (RBC) [Ratio] 25.0 % High 11.5 - 15.0 % [facility] Hematocrit (Bld) [Volume fraction] 29.9 % Low 39.0 - 51.0 % [facility] Hemoglobin (Bld) [Mass/Vol] 9.1 g/dL Low 13.0 - 17.0 g/dL [facility] Immature granulocytes (Bld) [#/Vol] 0.09 10*3/uL [facility] Immature granulocytes/100 WBC (Bld) 1.2 % [facility] Interpretation and review of laboratory results Abnormal [facility] Lymphocytes (Bld) [#/Vol] 1.11 10*3/uL [facility] Lymphocytes/100 WBC (Bld) 15.0 % [facility] MCH (RBC) [Entitic mass] 26.8 pg 26.0 - 34.0 pg [facility] MCHC (RBC) [Mass/Vol] 30.4 g/dL Low 30.5 - 36.0 g/dL [facility] MCV (RBC) [Entitic vol] 87.9 fL 80.0 - 100.0 fL [facility] Monocytes (Bld) [#/Vol] 0.87 10*3/uL High [facility] Monocytes/100 WBC (Bld) 11.7 % [facility] Neutrophils (Bld) [#/Vol] 5.24 10*3/uL [facility] Neutrophils/100 WBC (Bld) 70.8 % [facility] Nucleated RBC (Bld) [#/Vol] 0.03 10*3/uL High NINF [facility] Nucleated RBC/100 WBC (Bld) [Ratio] 0.4 % /100 WBC [facility] Platelet mean volume (Bld) [Entitic vol] 9.6 fL 9.0 - 12.7 fL [facility] Platelets (Bld) [#/Vol] 292 10*3/uL [facility] RBC (Bld) [#/Vol] 3.40 10*6/uL Low 4.20 - 6.0 0 m/uL [facility] WBC (Bld) [#/Vol] 7.41 10*3/uL [facility] Basophils (Bld) [#/Vol] 0.04 10*3/uL Normal <0.11 [facility] Comment on above: Order Comment: Speci men Type: BLOOD SPECIMENOrdering Facility: [facility] Address: [address] [place] [address] Performed By: #### 5 7021-8 ####[facility] [id number] [address] [facility] Basophils/100 WBC (Bld) 0.5 % Normal [facility] Comment on above: Order Comment: Speci men Type: BLOOD SPECIMENOrdering Facility: [facility] Address: [address] [place] [address] Performed By: #### 5 7021-8 ####[facility] [id number] [place] [address] [place] Differential cell count method Nom (Bld) Auto Normal [facility] Comment on above: Order Comment: Speci men Type: BLOOD SPECIMENOrdering Facility: [facility] Address: [address] [place] [address] Performed By: #### 5 7021-8 ####[facility] [id number] [place] [address] [place] Eosinophils (Bld) [#/Vol] 0.06 10*3/uL Normal <0.46 [facility] Comment on above: Order Comment: Speci men Type: BLOOD SPECIMENOrdering Facility: [facility] Address: [address] [place] [address] Performed By: #### 5 7021-8 ####[facility] [id number] [place] [address] [place] Eosinophils/100 WBC (Bld) 0.8 % Normal [facility] Comment on above: Order Comment: Speci men Type: BLOOD SPECIMENOrdering Facility: [facility] Address: [address] [place] [address] Performed By: #### 5 7021-8 ####[facility] [id number] [place] [address] [place] Erythrocyte distribution width (RBC) [Ratio] 25.0 % High 11.5-15.0 [facility] Comment on above: Order Comment: Speci men Type: BLOOD SPECIMENOrdering Facility: [facility] Address: [address] [place] [address] Performed By: #### 5 7021-8 ####[facility] [id number] [place] [address] [place] Hematocrit (Bld) [Volume fraction] 29.9 % Low 39.0-51.0 [facility] Comment on above: Order Comment: Speci men Type: BLOOD SPECIMENOrdering Facility: [facility] Address: [address] [place] [address] Performed By: #### 5 7021-8 ####[facility] CLAU TEDDYBAYARDNCBECKYA [id number] [place] [address] [place] Hemoglobin (Bld) [Mass/Vol] 9.1 g/dL Low 13.0-17.0 [facility] Comment on above: Order Comment: Speci men Type: BLOOD SPECIMENOrdering Facility: [facility] Address: [address] [place] [address] Performed By: #### 5 7021-8 ####[facility] HOSPITALNCA [id number] [place] [address] [place] Immature granulocytes (Bld) [#/Vol] 0.09 10*3/uL Normal <0.10 [facility] Comment on above: Order Comment: Speci men Type: BLOOD SPECIMENOrdering Facility: [facility] Address: [address] [place] [address] Performed By: #### 5 7021-8 ####[facility]PITALNCLIA [id number] [place] [address] [place] Immature granulocytes/100 WBC (Bld) 1.2 % Normal [facility] Comment on above: Order Comment: Speci men Type: BLOOD SPECIMENOrdering Facility: [facility] Address: [address] [place] [address] Performed By: #### 5 7021-8 ####[facility]ITALNCLIA [id number] [place] [address] [place] Lymphocytes (Bld) [#/Vol] 1.11 10*3/uL Normal 1.00-4.00 [facility] Comment on above: Order Comment: Speci men Type: BLOOD SPECIMENOrdering Facility: [facility] Address: [address] [place] [address] Performed By: #### 5 7021-8 ####[facility]ITALNCLIA [id number] [place] [address] [place] Lymphocytes/100 WBC (Bld) 15.0 % Normal [facility] Comment on above: Order Comment: Speci men Type: BLOOD SPECIMENOrdering Facility: [facility] Address: [address] [place] [address] Performed By: #### 5 7021-8 ####[facility]PITALNCLIA [id number] [place] [address] [place] MCH (RBC) [Entitic mass] 26.8 pg Normal 26.0-34.0 [facility] Comment on above: Order Comment: Speci men Type: BLOOD SPECIMENOrdering Facility: [facility] Address: [address] [place] [address] Performed By: #### 5 7021-8 ####[facility] NORTHLIA [id number] [place] [address] [place] MCHC (RBC) [Mass/Vol] 30.4 g/dL Low 30.5-36.0 [facility] Comment on above: Order Comment: Speci men Type: BLOOD SPECIMENOrdering Facility: [facility] Address: [address] [place] [address] Performed By: #### 5 7021-8 ####[facility]ITALNCLIA [id number] [place] [address] [place] MCV (RBC) [Entitic vol] 87.9 fL Normal 80.0-100.0 [facility] Comment on above: Order Comment: Speci men Type: BLOOD SPECIMENOrdering Facility: [facility] Address: [address] [place] [address] Performed By: #### 5 7021-8 ####[facility] [id number] [place] [address] [place] Monocytes (Bld) [#/Vol] 0.87 10*3/uL High <0.87 [facility] Comment on above: Order Comment: Speci men Type: BLOOD SPECIMENOrdering Facility: [facility] Address: [address] [place] [address] Performed By: #### 5 7021-8 ####[facility] NORTHLIA [id number] [place] [address] [place] Monocytes/100 WBC (Bld) 11.7 % Normal [facility] Comment on above: Order Comment: Speci men Type: BLOOD SPECIMENOrdering Facility: [facility] Address: [address] [place] [address] Performed By: #### 5 7021-8 ####[facility] HOSPITALNCA [id number] [place] [address] [place] Neutrophils (Bld) [#/Vol] 5.24 10*3/uL Normal 1.45-7.50 [facility] Comment on above: Order Comment: Speci men Type: BLOOD SPECIMENOrdering Facility: [facility] Address: [address] [place] [address] Performed By: #### 5 7021-8 ####[facility] NORTHLIA [id number] [place] [address] [place] Neutrophils/100 WBC (Bld) 70.8 % Normal [facility] Comment on above: Order Comment: Speci men Type: BLOOD SPECIMENOrdering Facility: [facility] Address: [address] [place] [address] Performed By: #### 5 7021-8 ####[facility]PITALNCLIA [id number] [place] [address] [place] Nucleated RBC (Bld) [#/Vol] 0.03 10*3/uL High <0.01 [facility] Comment on above: Order Comment: Speci men Type: BLOOD SPECIMENOrdering Facility: [facility] Address: [address] [place] [address] Performed By: #### 5 7021-8 ####[facility] CLAU JENNIENCCARLO [id number] [place] [address] [place] Nucleated RBC/100 WBC (Bld) [Ratio] 0.4 /100 WBC Normal [facility] Comment on above: Order Comment: Speci men Type: BLOOD SPECIMENOrdering Facility: [facility] Address: [address] [place] [address] Performed By: #### 5 7021-8 ####[facility] TEDDYBAYARDNCLIMckenna [id number] [place] [address] [place] Platelet mean volume (Bld) [Entitic vol] 9.6 fL Normal 9.0-12.7 [facility] Comment on above: Order Comment: Speci men Type: BLOOD SPECIMENOrdering Facility: [facility] Address: [address] [place] [address] Performed By: #### 5 7021-8 ####[facility]PITALNCLIA [id number] [place] [address] [place] Platelets (Bld) [#/Vol] 292 10*3/uL Normal 150-400 [facility] Comment on above: Order Comment: Speci men Type: BLOOD SPECIMENOrdering Facility: [facility] Address: [address] [place] [address] Performed By: #### 5 7021-8 ####[facility]PITALNCLIA [id number] [place] [address] [place] RBC (Bld) [#/Vol] 3.40 10*6/uL Low 4.20-6.00 [facility] Comment on above: Order Comment: Speci men Type: BLOOD SPECIMENOrdering Facility: [facility] Address: [address] [place] [address] Performed By: #### 5 7021-8 ####[facility] XIMENANCLIA [id number] [place] [address] [place] WBC (Bld) [#/Vol] 7.41 10*3/uL Normal 3.70-11.00 [facility] Comment on above: Order Comment: Speci men Type: BLOOD SPECIMENOrdering Facility: [facility] Address: [address] [place] [address] Performed By: #### 5 7021-8 ####[facility]ITALNCLIA [id number] [place] [address] [place] CEA SerPl-mCncon 03-29-2024 Carcinoembryonic Ag [Mass/Vol] 36.2 ng/mL High <=2.9 [facility] Comment on above: Order Comment: Speci men Type: BLOOD SPECIMENOrdering Facility: [facility] Address: [address] [place] [address] Result Comment: Carc inoembryonic antigen test is used as an aid in monitoring response to treatment or recurrence in patients with established colorectal, breast, lung, prostatic, pancreatic, and ovarian carcinomas. Clinical correlation is required.The Carcinoembryonic antigen test was performed using the Bryce Iveth Un[employer]el DXI paramagnetic particle chemiluminescent immunoassay method. Results obtained with different assay methods or kits cannot be used interchangeably. Performed By: #### 2 039-6 ####[facility] LABCLIA [id number] [place] [address] [place] CNOVSPon 03-29-2024 CNOVSP Normal [facility] Comprehensive metabolic 2000 panelOrdered By: Mady Cabello on 03-29-2024 Albumin [Mass/Vol] 3.6 g/dL Low 3.9 - 4.9 g/dL [facility] ALP [Catalytic activity/Vol] 75 U/L 38 - 113 U/L [facility] ALT [Catalytic activity/Vol] 5 U/L Low 10 - 54 U/L [facility] Anion gap [Moles/Vol] 11 mmol/L 8 - 15 mmol/L [facility] AST [Catalytic activity/Vol] 8 U/L Low 14 - 40 U/L [facility] Bilirubin [Mass/Vol] 0.6 mg/dL 0.2 - 1 .3 mg/dL [facility] Calcium [Mass/Vol] 9.2 mg/dL 8.5 - 10. 2 mg/dL [facility] Chloride [Moles/Vol] 98 mmol/L 98 - 10 7 mmol/L [facility] CO2 [Moles/Vol] 24 mmol/L 22 - 30 mmol/L [facility] Creatinine [Mass/Vol] 0.86 mg/dL 0.73 - 1.22 mg/dL [facility] GFR/1.73 sq M.predicted among non-blacks MDRD (S/P/Bld) [Vol rate/Area] 90 mL/min/{1.73_m2} - PINF [facility] Comment on above: Estimated Glomerular Filtration Rate (eGFR) is calculated using the 2020 CKD-EPI creatinine equation. This equation utilizes serum creatinine, sex, and age as parameters. The creatinine assay has traceable calibration to isotope dilution-mass spectrometry. Refer to KDIGO guidelines for clinical interpretation. In patients with unstable renal function, e.g. those with acute kidney injury, the eGFR may not accurately reflect actual GFR. Glucose [Mass/Vol] 265 mg/dL High 74 - 99 mg/dL [facility] Comment on above: The [place] Diab[place] Association (ADA) provides guidance for cutoff values for fasting glucose and random glucose. The ADA defines fasting as no caloric intake for at least 8 hours. Fasting plasma glucose results between 100 to 125 mg/dL indicate increased risk for diabetes (prediabetes). Fasting plasma glucose results greater than or equal to 126 mg/dL meet the criteria for diagnosis of diabetes. In the absence of unequivocal hyperglycemia, results should be confirmed by repeat testing. In a patient with classic symptoms of hyperglycemia or hyperglycemic crisis, random plasma glucose results greater than or equal to 200 mg/dL meet the criteria for diagnosis of diabetes. Reference: Standards of Medical Care in Diabetes 2016, [place] Diabetes Association. Diabetes Care. 2016.39(Suppl 1). Interpretation and review of laboratory results Abnormal [facility] Potassium [Moles/Vol] 3.9 mmol/L 3.7 - 5.1 mmol/L [facility] Protein [Mass/Vol] 7.2 g/dL 6.3 - 8.0 g/dL [facility] Sodium [Moles/Vol] 133 mmol/L Low 136 - 144 mmol/L [facility] Urea nitrogen [Mass/Vol] 16 mg/dL 9 - 24 mg/dL [facility] Comprehensive metabolic 2000 panelon 03-29-2024 Albumin [Mass/Vol] 3.6 g/dL Low 3.9-4.9 [facility] Comment on above: Order Comment: Speci men Type: BLOOD SPECIMENOrdering Facility: [facility] Address: [address] [place] [address] Performed By: #### 1 9123-9, 89920-8 ####[facility] HOS[facility]ITALA [id number] [place] [address] [place] ALP [Catalytic activity/Vol] 75 U/L Normal 38-113 [facility] Comment on above: Order Comment: Speci men Type: BLOOD SPECIMENOrdering Facility: [facility] Address: [address] [place] [address] Performed By: #### 1 9123-9, 00284-7 ####[facility] H[facility]ITALA [id number] [place] [address] [place] ALT [Catalytic activity/Vol] 5 U/L Low 10-54 [facility] Comment on above: Order Comment: Speci men Type: BLOOD SPECIMENOrdering Facility: [facility] Address: [address] [place] [address] Performed By: #### 1 9123-9, 49186-6 ####[facility]PITALNCLIA [id number] [place] [address] [place] Anion gap [Moles/Vol] 11 mmol/L Normal 8-15 [facility] Comment on above: Order Comment: Speci men Type: BLOOD SPECIMENOrdering Facility: [facility] Address: [address] [place] [address] Performed By: #### 1 9123-9, ####[facility] MILLTOWNCLIA [id number] [place] [address] [place] AST [Catalytic activity/Vol] 8 U/L Low 14-40 [facility] Comment on above: Order Comment: Speci men Type: BLOOD SPECIMENOrdering Facility: [facility] Address: [address] [place] [address] Performed By: #### 1 9123-9, ####[facility] MILLTOWNCLIA [id number] [place] [address] [place] Bilirubin [Mass/Vol] 0.6 mg/dL Normal 0.2-1.3 [facility] Comment on above: Order Comment: Speci men Type: BLOOD SPECIMENOrdering Facility: [facility] Address: [address] [place] [address] Performed By: #### 1 9123-9, ####[facility]ENWNCLIA [id number] [place] [address] [place] Calcium [Mass/Vol] 9.2 mg/dL Normal 8.5-10.2 [facility] Comment on above: Order Comment: Speci men Type: BLOOD SPECIMENOrdering Facility: [facility] Address: [address] [place] [address] Performed By: #### 1 9123-9, ####[facility] MILLTOWNCLIA [id number] [place] [address] [place] Chloride [Moles/Vol] 98 mmol/L Normal 98-107 [facility] Comment on above: Order Comment: Speci men Type: BLOOD SPECIMENOrdering Facility: [facility] Address: [address] [place] [address] Performed By: #### 1 9123-9, ####[facility] MILLTOWNCLIA [id number] [place] [address] [place] CO2 [Moles/Vol] 24 mmol/L Normal 22-30 [facility] Comment on above: Order Comment: Speci men Type: BLOOD SPECIMENOrdering Facility: [facility] Address: [address] [place] [address] Performed By: #### 1 9123-9, 70374-3 ####[facility] NORTHBECKY [id number] [place] [address] [place] Creatinine [Mass/Vol] 0.86 mg/dL Normal 0.73-1.22 [facility] Comment on above: Order Comment: Speci men Type: BLOOD SPECIMENOrdering Facility: [facility] Address: [address] [place] [address] Performed By: #### 1 9123-9, 83113-5 ####[facility] [id number] [place] [address] [place] Creatinine and Glomerular filtration rate.predicted panel (S/P/Bld) 90 mL/min/1.73m??? Normal >=60 [facility] Comment on above: Order Comment: Willam robles Type: BLOOD SPECIMENOrdering Facility: [facility] Address: [address] [place] [address] Result Comment: Rod mated Glomerular Filtration Rate (eGFR) is calculated using the 2020 CKD-EPI creatinine equation. This equation utilizes serum creatinine, sex, and age as parameters. The creatinine assay has traceable calibration to isotope dilution-mass spectrometry. Refer to KDIGO guidelines for clinical interpretation. In patients with unstable renal function, e.g. those with acute kidney injury, the eGFR may not accurately reflect actual GFR. Performed By: #### 1 9123-9, 96795-6 ####[facility]ITAL[facility]CLIA [id number] [place] [address] [place] Glucose [Mass/Vol] 265 mg/dL High 74-99 [facility] Comment on above: Order Comment: Speci men Type: BLOOD SPECIMENOrdering Facility: [facility] Address: [address] [place], [place] [address] Result Comment: The [place] Diabetes Association (ADA) provides guidance for cutoff values for fasting glucose and random glucose. The ADA defines fasting as no caloric intake for at least 8 hours. Fasting plasma glucose results between 100 to 125 mg/dL indicate increased risk for diabetes (prediabetes).Fasting plasma glucose results greater than or equal to 126 mg/dL meet the criteria for diagnosis of diabetes. In the absence of unequivocal hyperglycemia, results should be confirmed by repeat testing. In a patient with classic symptoms of hyperglycemia or hyperglycemic crisis, random plasma glucose results greater than or equal to 200 mg/dL meet the criteria for diagnosis of diabetes.Reference: Standards of Medical Care in Diabetes 2016, [place] [employer]. Diabetes Care. 2016.39(Suppl 1). Performed By: #### 1 9123-9, 82938-9 ####[facility] HOS[facility]ITALMckenna [id number] [place] [address] [place] Potassium [Moles/Vol] 3.9 mmol/L Normal 3.7-5.1 [facility] Comment on above: Order Comment: Willam orbles Type: BLOOD SPECIMENOrdering Facility: [facility] Address: [address] [place] [address] Performed By: #### 1 9123-9, 80407-0 ####[facility] HOS[facility]ITALA [id number] [place] [address] [place] Protein [Mass/Vol] 7.2 g/dL Normal 6.3-8.0 [facility] Comment on above: Order Comment: Willam men Type: BLOOD SPECIMENOrdering Facility: [facility] Address: [address] [place], [place] [address] Performed By: #### 1 9123-9, ####[facility]ENWNCLIA [id number] [place] [address] [place] Sodium [Moles/Vol] 133 mmol/L Low 136-144 [facility] Comment on above: Order Comment: Speci men Type: BLOOD SPECIMENOrdering Facility: [facility] Address: [address] [place], [place] [address] Performed By: #### 1 9123-9, 67574-8 ####[facility] MILLBAYARDNCLIA [id number] [place] [address] [place] Urea nitrogen [Mass/Vol] 16 mg/dL Normal 9-24 [facility] Comment on above: Order Comment: Speci men Type: BLOOD SPECIMENOrdering Facility: [facility] Address: [address] [place] [address] Performed By: #### 1 9123-9, 63989-3 ####[facility]ITALNCLIA [id number] [place] [address] [place] MAGNESIUMon 03-29-2024 Magnesium [Mass/Vol] 1.7 mg/dL 1.7 - 2 .3 mg/dL [facility] Magnesium SerPl-mCncon 03-29 Magnesium [Mass/Vol] 1.7 mg/dL Normal 1.7-2.3 [facility] Comment on above: Order Comment: Speci men Type: BLOOD SPECIMENOrdering Facility: [facility] Address: [address] [place], [place] [address] Performed By: #### 1 9123-9, 84557-3 ####[facility] NORTHLIA [id number] [place] [address] [place] Magnesium [Mass/Vol]on 03-29 Interpretation and review of laboratory results Normal [facility] No Panel InformationOrdered By: Mady Cabello on 03-29-[address] [facility] [address] ABD/PEL W IVCONon 024 CT ABD/PEL W IVCON Normal [facility] CT CHEST W IVCONon 4 CT CHEST W IVCON Normal [facility] CNOVSPon 03-16-2024 CNOVSP Normal [facility] CBC W Auto Differential pane l (Bld)on 03-15-2024 Anisocytosis Ql (Bld) Present Normal [facility] Comment on above: Order Comment: Speci men Type: BLOOD SPECIMENOrdering Facility: [facility] Address: [address] [place] [address] Performed By: #### 5 7021-8 ####[facility] MILLTOWNCLIA [id number] [address] LABORATORYCLIA [id number] [place] [address] [place] Basophils (Bld) [#/Vol] 0.03 10*3/uL Normal <0.11 [facility] Comment on above: Order Comment: Speci men Type: BLOOD SPECIMENOrdering Facility: [facility] Address: [address] [place] [address] Performed By: #### 5 7021-8 ####[facility] MILLTOWNCLIA [id number] [address] LABORATORYCLIA [id number] [place] [address] [place] Basophils/100 WBC (Bld) 2.0 % Normal [facility] Comment on above: Order Comment: Speci men Type: BLOOD SPECIMENOrdering Facility: [facility] Address: [address] [place] [address] Performed By: #### 5 7021-8 ####[facility] MILLTOWNCLIA [id number] [address] LABORATORYCLIA [id number] [place] [address] [place] Differential cell count method Nom (Bld) Manual Normal [facility] Comment on above: Order Comment: Speci men Type: BLOOD SPECIMENOrdering Facility: [facility] Address: [address] [place] [address] Performed By: #### 5 7021-8 ####[facility] MILLTOWNCLIA [id number] [address] LABORATORYCLIA [id number] [place] [address] [place] Eosinophils (Bld) [#/Vol] 0.02 10*3/uL Normal <0.46 [facility] Comment on above: Order Comment: Speci men Type: BLOOD SPECIMENOrdering Facility: [facility] Address: [address] [place] [address] Performed By: #### 5 7021-8 ####[facility] HOSPITALJEFFERYWGIANNALIA [id number] [address] LABORATORYCLIA [id number] [place] [address] [place] Eosinophils/100 WBC (Bld) 1.0 % Normal [facility] Comment on above: Order Comment: Speci men Type: BLOOD SPECIMENOrdering Facility: [facility] Address: [address] [place] [address] Performed By: #### 5 7021-8 ####[facility] G[facility]ENWNCLIA [id number] [address] LABORATORYCLIA [id number] [place] [address] [place] Erythrocyte distribution width (RBC) [Ratio] 24.1 % High 11.5-15.0 [facility] Comment on above: Order Comment: Speci men Type: BLOOD SPECIMENOrdering Facility: [facility] Address: [address] [place] [address] Performed By: #### 5 7021-8 ####[facility] MILLTOWNCLIA [id number] [address] LABORATORYCLIA [id number] [place] [address] [place] Hematocrit (Bld) [Volume fraction] 31.0 % Low 39.0-51.0 [facility] Comment on above: Order Comment: Speci men Type: BLOOD SPECIMENOrdering Facility: [facility] Address: [address] [place] [address] Performed By: #### 5 7021-8 ####[facility] NORTHLIA [id number] [address] LABORATORYCLIA [id number] [place] [address] [place] Hemoglobin (Bld) [Mass/Vol] 9.7 g/dL Low 13.0-17.0 [facility] Comment on above: Order Comment: Speci men Type: BLOOD SPECIMENOrdering Facility: [facility] Address: [address] [place] [address] Performed By: #### 5 7021-8 ####[facility] NORTHLIA [id number] [address] LABORATORYCLIA [id number] [place] [address] [place] Lymphocytes (Bld) [#/Vol] 0.72 10*3/uL Low 1.00-4.00 [facility] Comment on above: Order Comment: Speci men Type: BLOOD SPECIMENOrdering Facility: [facility] Address: [address] [place] [address] Performed By: #### 5 7021-8 ####[facility] NORTHLIA [id number] [address] LABORATORYCLIA [id number] [place] [address] [place] Lymphocytes/100 WBC (Bld) 45.0 % Normal [facility] Comment on above: Order Comment: Speci men Type: BLOOD SPECIMENOrdering Facility: [facility] Address: [address] [place] [address] Performed By: #### 5 7021-8 ####[facility] XIMENAWNCLIA [id number] [address] LABORATORYCLIA [id number] [address] MCH (RBC) [Entitic mass] 26.3 pg Normal 26.0-34.0 [facility] Comment on above: Order Comment: Speci men Type: BLOOD SPECIMENOrdering Facility: [facility] Address: [address] [place] [address] Performed By: #### 5 7021-8 ####[facility] [id number] [address] LABORATORYCLIA [id number] [address] STATES [facility] MCHC (RBC) [Mass/Vol] 31.3 g/dL Normal 30.5-36.0 [facility] Comment on above: Order Comment: Speci men Type: BLOOD SPECIMENOrdering Facility: [facility] Address: [address] [place] [address] Performed By: #### 5 7021-8 ####[facility]OSPITALGIANNALIA [id number] [address] LABORATORYCLIA [id number] [address] MCV (RBC) [Entitic vol] 84.0 fL Normal 80.0-100.0 [facility] Comment on above: Order Comment: Speci men Type: BLOOD SPECIMENOrdering Facility: [facility] Address: [address] [place], [place] [address] Performed By: #### 5 7021-8 ####[facility]ITALA [id number] [address] LABORATORYCLIA [id number] [place] [address] [place] Monocytes (Bld) [#/Vol] 0.16 10*3/uL Normal <0.87 [facility] Comment on above: Order Comment: Speci men Type: BLOOD SPECIMENOrdering Facility: [facility] Address: [address] [place] [address] Performed By: #### 5 7021-8 ####[facility] MILLTOWNCLIA [id number] [address] LABORATORYCLIA [id number] [place] [address] [place] Monocytes/100 WBC (Bld) 10.0 % Normal [facility] Comment on above: Order Comment: Speci men Type: BLOOD SPECIMENOrdering Facility: [facility] Address: [address] [place] [address] Performed By: #### 5 7021-8 ####[facility] GARDENWNCLIA [id number] [address] LABORATORYCLIA [id number] [place] [address] [place] Neutrophils (Bld) [#/Vol] 0.67 10*3/uL Low 1.45-7.50 [facility] Comment on above: Order Comment: Speci men Type: BLOOD SPECIMENOrdering Facility: [facility] Address: [address] [place] [address] Performed By: #### 5 7021-8 ####[facility] MILLTOWNCLIA [id number] [address] LABORATORYCLIA [id number] [place] [address] [place] Neutrophils/100 WBC (Bld) 42.0 % Normal [facility] Comment on above: Order Comment: Speci men Type: BLOOD SPECIMENOrdering Facility: [facility] Address: [address] [place] [address] Performed By: #### 5 7021-8 ####[facility] TEDDYTOWNCLIA [id number] [address] LABORATORYCLIA [id number] [place] [address] [place] Nucleated RBC (Bld) [#/Vol] 10*3/uL Normal <0.01 [facility] Comment on above: Order Comment: Speci men Type: BLOOD SPECIMENOrdering Facility: [facility] Address: [address] [place] [address] Performed By: #### 5 7021-8 ####[facility] HOSPITALTOWNCLIA [id number] [address] LABORATORYCLIA [id number] [place] [address] [place] Nucleated RBC/100 WBC (Bld) [Ratio] 0.0 /100 WBC Normal [facility] Comment on above: Order Comment: Speci men Type: BLOOD SPECIMENOrdering Facility: [facility] Address: [address] [place] [address] Performed By: #### 5 7021-8 ####[facility] HOSPITALTOWNCLIA [id number] [address] LABORATORYCLIA [id number] [place] [address] [place] Ovalocytes LM Ql (Bld) Few Normal [facility] Comment on above: Order Comment: Speci men Type: BLOOD SPECIMENOrdering Facility: [facility] Address: [address] [place] [address] Performed By: #### 5 7021-8 ####[facility] MILLTOWNCLIA [id number] [address] LABORATORYCLIA [id number] [place] [address] [place] Platelet mean volume (Bld) [Entitic vol] 8.7 fL Low 9.0-12.7 [facility] Comment on above: Order Comment: Speci men Type: BLOOD SPECIMENOrdering Facility: [facility] Address: [address] [place] [address] Performed By: #### 5 7021-8 ####[facility] MILLTOWNCLIA [id number] [address] LABORATORYCLIA [id number] [place] [address] [place] Platelets (Bld) [#/Vol] 121 10*3/uL Low 150-400 [facility] Comment on above: Order Comment: Speci men Type: BLOOD SPECIMENOrdering Facility: [facility] Address: [address] [place] [address] Performed By: #### 5 7021-8 ####[facility] MILLTOWNCLIA [id number] [address] LABORATORYCLIA [id number] [place] [address] [place] Platelets Estimate (Bld) [#/Vol] Decreased Normal [facility] Comment on above: Order Comment: Speci men Type: BLOOD SPECIMENOrdering Facility: [facility] Address: [address] [place] [address] Performed By: #### 5 7021-8 ####[facility] MILLTOWNCLIA [id number] [address] LABORATORYCLIA [id number] [place] [address] [place] Polychromasia LM Ql (Bld) Slight Normal [facility] Comment on above: Order Comment: Speci men Type: BLOOD SPECIMENOrdering Facility: [facility] Address: [address] [place] [address] Performed By: #### 5 7021-8 ####[facility] XIMENAWNCLIA [id number] [address] LABORATORYCLIA [id number] [place] [address] [place] RBC (Bld) [#/Vol] 3.69 10*6/uL Low 4.20-6.00 [facility] Comment on above: Order Comment: Speci men Type: BLOOD SPECIMENOrdering Facility: [facility] Address: [address] [place] [address] Performed By: #### 5 7021-8 ####[facility]ITALA [id number] [address] LABORATORYCLIA [id number] [place] [address] [place] RED CELL MORPH Reviewed: see result s of individual morphologies Normal [facility] Comment on above: Order Comment: Speci men Type: BLOOD SPECIMENOrdering Facility: [facility] Address: [address] [place] [address] Performed By: #### 5 7021-8 ####[facility] NORTHLIA [id number] [address] LABORATORYCLIA [id number] [place] [address] [place] WBC (Bld) [#/Vol] 1.60 10*3/uL Low 3.70-11.00 [facility] Comment on above: Order Comment: Speci men Type: BLOOD SPECIMENOrdering Facility: [facility] Address: [address] [place] [address] Performed By: #### 5 7021-8 ####[facility] MILLTOWNCLIA [id number] [address] STATES [facility] LABORATORYCLIA [id number] [place] [address] [place] CEA SerPl-mCncon 03-15-2024 Carcinoembryonic Ag [Mass/Vol] 37.0 ng/mL High <=2.9 [facility] Comment on above: Order Comment: Speci men Type: BLOOD SPECIMENOrdering Facility: [facility] Address: [address] [place] [address] Result Comment: Carc inoembryonic antigen test is used as an aid in monitoring response to treatment or recurrence in patients with established colorectal, breast, lung, prostatic, pancreatic, and ovarian carcinomas. Clinical correlation is required.The Carcinoembryonic antigen test was performed using the [employer]ce [employer] Un[employer] DXI paramagnetic particle chemiluminescent immunoassay method. Results obtained with different assay methods or kits cannot be used interchangeably. Performed By: #### 2 039-6 ####[facility] LABCLIA [id number] [place] [address] [place] CNOVSPon 03-15-2024 CNOVSP Normal [facility] CNPNon 03-15-2024 CNPN Normal [facility] Comprehensive metabolic 2000 panelOrdered By: Mady Cabello on 03-15-2024 Albumin [Mass/Vol] 3.6 g/dL Low 3.9 - 4.9 g/dL [facility] ALP [Catalytic activity/Vol] 99 U/L 38 - 113 U/L [facility] ALT [Catalytic activity/Vol] 9 U/L Low 10 - 54 U/L [facility] Anion gap [Moles/Vol] 12 mmol/L 8 - 15 mmol/L [facility] AST [Catalytic activity/Vol] 14 U/L 14 - 40 U/L [facility] Bilirubin [Mass/Vol] 0.6 mg/dL 0.2 - 1 .3 mg/dL [facility] Calcium [Mass/Vol] 8.8 mg/dL 8.5 - 10. 2 mg/dL [facility] Chloride [Moles/Vol] 98 mmol/L 98 - 10 7 mmol/L [facility] CO2 [Moles/Vol] 25 mmol/L 22 - 30 mmol/L [facility] Creatinine [Mass/Vol] 0.81 mg/dL 0.73 - 1.22 mg/dL [facility] GFR/1.73 sq M.predicted among non-blacks MDRD (S/P/Bld) [Vol rate/Area] 91 mL/min/{1.73_m2} - PINF [facility] Comment on above: Estimated Glomerular Filtration Rate (eGFR) is calculated using the 2020 CKD-EPI creatinine equation. This equation utilizes serum creatinine, sex, and age as parameters. The creatinine assay has traceable calibration to isotope dilution-mass spectrometry. Refer to KDIGO guidelines for clinical interpretation. In patients with unstable renal function, e.g. those with acute kidney injury, the eGFR may not accurately reflect actual GFR. Glucose [Mass/Vol] 248 mg/dL High 74 - 99 mg/dL [facility] Comment on above: The [place] Di[employer] [place] Association (ADA) provides guidance for cutoff values for fasting glucose and random glucose. The ADA defines fasting as no caloric intake for at least 8 hours. Fasting plasma glucose results between 100 to 125 mg/dL indicate increased risk for diabetes (prediabetes). Fasting plasma glucose results greater than or equal to 126 mg/dL meet the criteria for diagnosis of diabetes. In the absence of unequivocal hyperglycemia, results should be confirmed by repeat testing. In a patient with classic symptoms of hyperglycemia or hyperglycemic crisis, random plasma glucose results greater than or equal to 200 mg/dL meet the criteria for diagnosis of diabetes. Reference: Standards of Medical Care in Diabetes 2016, [place] [employer]. Diabetes Care. 2016.39(Suppl 1). Potassium [Moles/Vol] 3.6 mmol/L Low 3.7 - 5.1 mmol/L [facility] Protein [Mass/Vol] 6.4 g/dL 6.3 - 8.0 g/dL [facility] Sodium [Moles/Vol] 135 mmol/L Low 136 - 144 mmol/L [facility] Urea nitrogen [Mass/Vol] 15 mg/dL 9 - 24 mg/dL [facility] Comprehensive metabolic 2000 panelon 03-15-2024 Albumin [Mass/Vol] 3.6 g/dL Low 3.9-4.9 [facility] Comment on above: Order Comment: Speci men Type: BLOOD SPECIMENOrdering Facility: [facility] Address: [address] [place] [address] Performed By: #### 2 4323-8, ####[facility] CLAU GODINEZA [id number] [place] [address] [place] ALP [Catalytic activity/Vol] 99 U/L Normal 38-113 [facility] Comment on above: Order Comment: Speci men Type: BLOOD SPECIMENOrdering Facility: [facility] Address: [address] [place] [address] Performed By: #### 2 4323-8, ####[facility] JENNIEGIANNALIA [id number] [place] [address] [place] ALT [Catalytic activity/Vol] 9 U/L Low 10-54 [facility] Comment on above: Order Comment: Speci men Type: BLOOD SPECIMENOrdering Facility: [facility] Address: [address] [place] [address] Performed By: #### 2 4323-8, ####[facility] TEDDYTRICIAA [id number] [place] [address] [place] Anion gap [Moles/Vol] 12 mmol/L Normal 8-15 [facility] Comment on above: Order Comment: Speci men Type: BLOOD SPECIMENOrdering Facility: [facility] Address: [address] [place] [address] Performed By: #### 2 4323-8, ####[facility] TEDDYWNCLIA [id number] [place] [address] [place] AST [Catalytic activity/Vol] 14 U/L Normal 14-40 [facility] Comment on above: Order Comment: Speci men Type: BLOOD SPECIMENOrdering Facility: [facility] Address: [address] [place] [address] Performed By: #### 2 4323-8, ####[facility] CLAU MILLTOWNCLIA [id number] [place] [address] [place] Bilirubin [Mass/Vol] 0.6 mg/dL Normal 0.2-1.3 [facility] Comment on above: Order Comment: Speci men Type: BLOOD SPECIMENOrdering Facility: [facility] Address: [address] [place] [address] Performed By: #### 2 4323-8, ####[facility] MILLTOWNCLIA [id number] [place] [address] [place] Calcium [Mass/Vol] 8.8 mg/dL Normal 8.5-10.2 [facility] Comment on above: Order Comment: Speci men Type: BLOOD SPECIMENOrdering Facility: [facility] Address: [address] [place] [address] Performed By: #### 2 4323-8, ####[facility] MILLWNCLIA [id number] [place] [address] [place] Chloride [Moles/Vol] 98 mmol/L Normal 98-107 [facility] Comment on above: Order Comment: Speci men Type: BLOOD SPECIMENOrdering Facility: [facility] Address: [address] [place] [address] Performed By: #### 2 4323-8, ####[facility] MILLTOWNCLIA [id number] [place] [address] [place] CO2 [Moles/Vol] 25 mmol/L Normal 22-30 [facility] Comment on above: Order Comment: Speci men Type: BLOOD SPECIMENOrdering Facility: [facility] Address: [address] [place] [address] Performed By: #### 2 4323-8, ####[facility] CLAU MILLTOWNCLIA [id number] [place] [address] [place] Creatinine [Mass/Vol] 0.81 mg/dL Normal 0.73-1.22 [facility] Comment on above: Order Comment: Willam robles Type: BLOOD SPECIMENOrdering Facility: [facility] Address: [address] [place] [address] Performed By: #### 2 4323-8, ####[facility] [id number] [place] [id number] [place] Creatinine and Glomerular filtration rate.predicted panel (S/P/Bld) 91 mL/min/1.73m??? Normal >=60 [facility] Comment on above: Order Comment: Willam robles Type: BLOOD SPECIMENOrdering Facility: [facility] Address: [address] [place] [address] Result Comment: Rod mated Glomerular Filtration Rate (eGFR) is calculated using the 2020 CKD-EPI creatinine equation. This equation utilizes serum creatinine, sex, and age as parameters. The creatinine assay has traceable calibration to isotope dilution-mass spectrometry. Refer to KDIGO guidelines for clinical interpretation. In patients with unstable renal function, e.g. those with acute kidney injury, the eGFR may not accurately reflect actual GFR. Performed By: #### 2 4323-8, ####[facility] [id number] [place] [address] [place] Glucose [Mass/Vol] 248 mg/dL High 74-99 [facility] Comment on above: Order Comment: Willam robles Type: BLOOD SPECIMENOrdering Facility: [facility] Address: [address] [place] [address] Result Comment: The [place] Diabetes Association (ADA) provides guidance for cutoff values for fasting glucose and random glucose. The ADA defines fasting as no caloric intake for at least 8 hours. Fasting plasma glucose results between 100 to 125 mg/dL indicate increased risk for diabetes (prediabetes).Fasting plasma glucose results greater than or equal to 126 mg/dL meet the criteria for diagnosis of diabetes. In the absence of unequivocal hyperglycemia, results should be confirmed by repeat testing. In a patient with classic symptoms of hyperglycemia or hyperglycemic crisis, random plasma glucose results greater than or equal to 200 mg/dL meet the criteria for diagnosis of diabetes.Reference: Standards of Medical Care in Diabetes 2016, [place] [employer]. Diabetes Care. 2016.39(Suppl 1). Performed By: #### 2 4323-8, ####[facility] CLAU ANGEL [id number] [place] [address] [place] Potassium [Moles/Vol] 3.6 mmol/L Low 3.7-5.1 [facility] Comment on above: Order Comment: Patti margaret Type: BLOOD SPECIMENOrdering Facility: [facility] Address: [address] [place] [address] Performed By: #### 2 4323-8, ####[facility]ENGANESH [id number] [place] [address] [place] Protein [Mass/Vol] 6.4 g/dL Normal 6.3-8.0 [facility] Comment on above: Order Comment: Willam robles Type: BLOOD SPECIMENOrdering Facility: [facility] Address: [address] [place], [place] [address] Performed By: #### 2 4323-8, ####[facility]PITALBANG [id number] [place] [address] [place] Sodium [Moles/Vol] 135 mmol/L Low 136-144 [facility] Comment on above: Order Comment: Speci men Type: BLOOD SPECIMENOrdering Facility: [facility] Address: [address] [place], [place] [address] Performed By: #### 2 4323-8, ####[facility] GARDENMAGGILIMckenna [id number] [place] [address] [place] Urea nitrogen [Mass/Vol] 15 mg/dL Normal 9-24 [facility] Comment on above: Order Comment: Speci men Type: BLOOD SPECIMENOrdering Facility: [facility] Address: [address] [place] [address] Performed By: #### 2 4323-8, 49379-7 ####[facility] TEDDYMADISON STATE HOSPITALLIA [id number] [place] [address] [place] Ferritin SerPl-ncon 2023 Ferritin [Mass/Vol] 1582.0 ng/mL High 30.3-565.7 [facility] Comment on above: Order Comment: Speci men Type: BLOOD SPECIMENOrdering Facility: [facility] Address: [address] [place] [address] Performed By: #### 5 0190-8, 2275-09, 2132-02 ####[facility] LABCLIA [id number] [place] [address] [place] Iron and Iron binding capaci panel 03-15-2024 Iron [Mass/Vol] 40 ug/dL Low 41-186 [facility] Comment on above: Order Comment: Speci men Type: BLOOD SPECIMENOrdering Facility: [facility] Address: [address] [place] [address] Performed By: #### 5 0190-8, 2275-09, 2132-02 ####[facility] LABCLIA [id number] [place] [address] [place] Iron binding capacity [Mass/Vol] 293 ug/dL Normal 232-386 [facility] Comment on above: Order Comment: Speci men Type: BLOOD SPECIMENOrdering Facility: [facility] Address: [address] [place] [address] Performed By: #### 5 0190-8, 2275-09, 2132-02 ####[facility] LABCLIA [id number] [place] [address] [place] Iron/TIBC [Molar ratio] 13.7 % Low 15.0-57.0 [facility] Comment on above: Order Comment: Speci men Type: BLOOD SPECIMENOrdering Facility: [facility] Address: [address] [place], [place] [address] Performed By: #### 5 0190-8, 2275-09, 2132-02 ####[facility] LABCLIA [id number] [place] [address] [place] MAGNESIUMon 03-15-2024 Magnesium [Mass/Vol] 1.3 mg/dL Low 1.7 - 2 .3 mg/dL [facility] Magnesium SerPl-ncon 03-15 Magnesium [Mass/Vol] 1.3 mg/dL Low 1.7-2.3 [facility] Comment on above: Order Comment: Speci men Type: BLOOD SPECIMENOrdering Facility: [facility] Address: [address] [place] [address] Performed By: #### 2 4323-8, 16439-0 ####[facility] CLAU MILLMADISON STATE HOSPITALLIA [id number] [place] [address] [place] No Panel InformationOrdered By: Mady Cabello on 03-15-2024 Interpretation and review of laboratory results Abnormal [facility] Vit B12 SerPl-mCncon 024 Cobalamin (Vitamin B12) [Mass/Vol] 190 pg/mL Low 232-1245 [facility] Comment on above: Order Comment: Speci men Type: BLOOD SPECIMENOrdering Facility: [facility] Address: [address] [place], [place] [address] Performed By: #### 5 0190-8, 2275-09, 2132-02 ####[facility] LABCLIA [id number] [place] [id number] [place] CNCOon 03-08-2024 CNCO Letter Text Normal [facility] CNOVon 03-08-2024 CNOV Normal [facility] CNPNon 03-08-2024 CNPN Normal [facility] CBC W Auto Differential pane l (Bld)on 03-01-2024 Basophils (Bld) [#/Vol] [facility] Basophils/100 WBC (Bld) 0.0 % [facility] Differential cell count method Nom (Bld) Auto [facility] Eosinophils (Bld) [#/Vol] 0.07 10*3/uL [facility] Eosinophils/100 WBC (Bld) 2.5 % [facility] Erythrocyte distribution width (RBC) [Ratio] 23.1 % High 11.5 - 15.0 % [facility] Hematocrit (Bld) [Volume fraction] 32.4 % Low 39.0 - 51.0 % [facility] Hemoglobin (Bld) [Mass/Vol] 10.1 g/dL Low 13.0 - 17.0 g/dL [facility] Immature granulocytes (Bld) [#/Vol] [facility] Immature granulocytes/100 WBC (Bld) 0.4 % [facility] Interpretation and review of laboratory results Abnormal [facility] Lymphocytes (Bld) [#/Vol] 0.43 10*3/uL Low [facility] Lymphocytes/100 WBC (Bld) 15.1 % [facility] MCH (RBC) [Entitic mass] 25.9 pg Low 26.0 - 34.0 pg [facility] MCHC (RBC) [Mass/Vol] 31.2 g/dL 30.5 - 36.0 g/dL [facility] MCV (RBC) [Entitic vol] 83.1 fL 80.0 - 100.0 fL [facility] Monocytes (Bld) [#/Vol] 0.21 10*3/uL [facility] Monocytes/100 WBC (Bld) 7.4 % [facility] Neutrophils (Bld) [#/Vol] 2.12 10*3/uL [facility] Neutrophils/100 WBC (Bld) 74.6 % [facility] Nucleated RBC (Bld) [#/Vol] [facility] Nucleated RBC/100 WBC (Bld) [Ratio] 0.0 % /100 WBC [facility] Platelet mean volume (Bld) [Entitic vol] 8.6 fL Low 9.0 - 12.7 fL [facility] Platelets (Bld) [#/Vol] 112 10*3/uL Low [facility] RBC (Bld) [#/Vol] 3.90 10*6/uL Low 4.20 - 6.0 0 m/uL [facility] WBC (Bld) [#/Vol] 2.84 10*3/uL Low [facility] Basophils (Bld) [#/Vol] 10*3/uL Normal <0.11 [facility] Comment on above: Order Comment: Speci men Type: BLOOD SPECIMENOrdering Facility: [facility] Address: [address] [place] [address] Performed By: #### 5 7021-8 ####[facility] MILLWHILIA [id number] [place] [address] [place] Basophils/100 WBC (Bld) 0.0 % Normal [facility] Comment on above: Order Comment: Speci men Type: BLOOD SPECIMENOrdering Facility: [facility] Address: [address] [place] [address] Performed By: #### 5 7021-8 ####[facility] NORTHLIA [id number] [place] [address] [place] Differential cell count method Nom (Bld) Auto Normal [facility] Comment on above: Order Comment: Speci men Type: BLOOD SPECIMENOrdering Facility: [facility] Address: [address] [place] [address] Performed By: #### 5 7021-8 ####[facility] MILLWNCLIA [id number] [place] [address] [place] Eosinophils (Bld) [#/Vol] 0.07 10*3/uL Normal <0.46 [facility] Comment on above: Order Comment: Speci men Type: BLOOD SPECIMENOrdering Facility: [facility] Address: [address] [place] [address] Performed By: #### 5 7021-8 ####[facility] HOSPITALNCLIA [id number] [place] [address] [place] Eosinophils/100 WBC (Bld) 2.5 % Normal [facility] Comment on above: Order Comment: Speci men Type: BLOOD SPECIMENOrdering Facility: [facility] Address: [address] [place] [address] Performed By: #### 5 7021-8 ####[facility] HOSPITALNCLI [id number] [place] [address] [place] Erythrocyte distribution width (RBC) [Ratio] 23.1 % High 11.5-15.0 [facility] Comment on above: Order Comment: Speci men Type: BLOOD SPECIMENOrdering Facility: [facility] Address: [address] [place] [address] Performed By: #### 5 7021-8 ####[facility] [id number] [place] [address] [place] Hematocrit (Bld) [Volume fraction] 32.4 % Low 39.0-51.0 [facility] Comment on above: Order Comment: Speci men Type: BLOOD SPECIMENOrdering Facility: [facility] Address: [address] [place] [address] Performed By: #### 5 7021-8 ####[facility] [id number] [place] [address] [place] Hemoglobin (Bld) [Mass/Vol] 10.1 g/dL Low 13.0-17.0 [facility] Comment on above: Order Comment: Speci men Type: BLOOD SPECIMENOrdering Facility: [facility] Address: [address] [place] [address] Performed By: #### 5 7021-8 ####[facility] NORTHLI [id number] [place] [address] [place] Immature granulocytes (Bld) [#/Vol] 10*3/uL Normal <0.10 [facility] Comment on above: Order Comment: Speci men Type: BLOOD SPECIMENOrdering Facility: [facility] Address: [address] [place] [address] Performed By: #### 5 7021-8 ####[facility] TEDDYGANESH [id number] [place] [address] [place] Immature granulocytes/100 WBC (Bld) 0.4 % Normal [facility] Comment on above: Order Comment: Speci men Type: BLOOD SPECIMENOrdering Facility: [facility] Address: [address] [place] [address] Performed By: #### 5 7021-8 ####[facility] [id number] [place] [address] [place] Lymphocytes (Bld) [#/Vol] 0.43 10*3/uL Low 1.00-4.00 [facility] Comment on above: Order Comment: Speci men Type: BLOOD SPECIMENOrdering Facility: [facility] Address: [address] [place] [address] Performed By: #### 5 7021-8 ####[facility] NORTHBECKY [id number] [place] [address] [place] Lymphocytes/100 WBC (Bld) 15.1 % Normal [facility] Comment on above: Order Comment: Speci men Type: BLOOD SPECIMENOrdering Facility: [facility] Address: [address] [place] [address] Performed By: #### 5 7021-8 ####[facility] [id number] [place] [address] [place] MCH (RBC) [Entitic mass] 25.9 pg Low 26.0-34.0 [facility] Comment on above: Order Comment: Speci men Type: BLOOD SPECIMENOrdering Facility: [facility] Address: [address] [place] [address] Performed By: #### 5 7021-8 ####[facility] [id number] [place] [address] [place] MCHC (RBC) [Mass/Vol] 31.2 g/dL Normal 30.5-36.0 [facility] Comment on above: Order Comment: Speci men Type: BLOOD SPECIMENOrdering Facility: [facility] Address: [address] [place] [address] Performed By: #### 5 7021-8 ####[facility] [id number] [place] [address] [place] MCV (RBC) [Entitic vol] 83.1 fL Normal 80.0-100.0 [facility] Comment on above: Order Comment: Speci men Type: BLOOD SPECIMENOrdering Facility: [facility] Address: [address] [place] [address] Performed By: #### 5 7021-8 ####[facility] [id number] [place] [address] [place] Monocytes (Bld) [#/Vol] 0.21 10*3/uL Normal <0.87 [facility] Comment on above: Order Comment: Speci men Type: BLOOD SPECIMENOrdering Facility: [facility] Address: [address] [place] [address] Performed By: #### 5 7021-8 ####[facility] [id number] [place] [address] [place] Monocytes/100 WBC (Bld) 7.4 % Normal [facility] Comment on above: Order Comment: Speci men Type: BLOOD SPECIMENOrdering Facility: [facility] Address: [address] [place] [address] Performed By: #### 5 7021-8 ####[facility] HOSPITALNCLIA [id number] [place] [address] [place] Neutrophils (Bld) [#/Vol] 2.12 10*3/uL Normal 1.45-7.50 [facility] Comment on above: Order Comment: Speci men Type: BLOOD SPECIMENOrdering Facility: [facility] Address: [address] [place] [address] Performed By: #### 5 7021-8 ####[facility] [id number] [place] [address] [place] Neutrophils/100 WBC (Bld) 74.6 % Normal [facility] Comment on above: Order Comment: Speci men Type: BLOOD SPECIMENOrdering Facility: [facility] Address: [address] [place] [address] Performed By: #### 5 7021-8 ####[facility] [id number] [place] [address] [place] Nucleated RBC (Bld) [#/Vol] 10*3/uL Normal <0.01 [facility] Comment on above: Order Comment: Speci men Type: BLOOD SPECIMENOrdering Facility: [facility] Address: [address] [place] [address] Performed By: #### 5 7021-8 ####[facility] [id number] [place] [address] [place] Nucleated RBC/100 WBC (Bld) [Ratio] 0.0 /100 WBC Normal [facility] Comment on above: Order Comment: Speci men Type: BLOOD SPECIMENOrdering Facility: [facility] Address: [address] [place] [address] Performed By: #### 5 7021-8 ####[facility] [id number] [place] [address] [place] Platelet mean volume (Bld) [Entitic vol] 8.6 fL Low 9.0-12.7 [facility] Comment on above: Order Comment: Speci men Type: BLOOD SPECIMENOrdering Facility: [facility] Address: [address] [place] [address] Performed By: #### 5 7021-8 ####[facility] CLAU SCHNEIDERNCCARLO [id number] [place] [address] [place] Platelets (Bld) [#/Vol] 112 10*3/uL Low 150-400 [facility] Comment on above: Order Comment: Speci men Type: BLOOD SPECIMENOrdering Facility: [facility] Address: [address] [place] [address] Performed By: #### 5 7021-8 ####[facility] JENNIENCBECKYA [id number] [place] [address] [place] RBC (Bld) [#/Vol] 3.90 10*6/uL Low 4.20-6.00 [facility] Comment on above: Order Comment: Speci men Type: BLOOD SPECIMENOrdering Facility: [facility] Address: [address] [place] [address] Performed By: #### 5 7021-8 ####[facility] TEDDYBAYARDNCLIA [id number] [place] [address] [place] WBC (Bld) [#/Vol] 2.84 10*3/uL Low 3.70-11.00 [facility] Comment on above: Order Comment: Speci men Type: BLOOD SPECIMENOrdering Facility: [facility] Address: [address] [place] [address] Performed By: #### 5 7021-8 ####[facility]ITALNCLIA [id number] [place] [address] [facility] [place] CEA SerPl-mCncon 03-01-2024 Carcinoembryonic Ag [Mass/Vol] 37.5 ng/mL High <=2.9 [facility] Comment on above: Order Comment: Speci men Type: BLOOD SPECIMENOrdering Facility: [facility] Address: [address] [place] [address] Result Comment: Carc inoembryonic antigen test is used as an aid in monitoring response to treatment or recurrence in patients with established colorectal, breast, lung, prostatic, pancreatic, and ovarian carcinomas. Clinical correlation is required.The Carcinoembryonic antigen test was performed using the [employer] DXI paramagnetic particle chemiluminescent immunoassay method. Results obtained with different assay methods or kits cannot be used interchangeably. Performed By: #### 2 039-6 ####[facility] LABCLIA [id number] [place] [address] [place] CNOVSPon 03-01-2024 CNOVSP Normal [facility] Comprehensive metabolic 2000 panelOrdered By: Mady Cabello on 03-01-2024 Albumin [Mass/Vol] 3.6 g/dL Low 3.9 - 4.9 g/dL [facility] ALP [Catalytic activity/Vol] 98 U/L 38 - 113 U/L [facility] ALT [Catalytic activity/Vol] 9 U/L Low 10 - 54 U/L [facility] Anion gap [Moles/Vol] 14 mmol/L 8 - 15 mmol/L [facility] AST [Catalytic activity/Vol] 14 U/L 14 - 40 U/L [facility] Bilirubin [Mass/Vol] 0.6 mg/dL 0.2 - 1 .3 mg/dL [facility] Calcium [Mass/Vol] 9.2 mg/dL 8.5 - 10. 2 mg/dL [facility] Chloride [Moles/Vol] 99 mmol/L 98 - 10 7 mmol/L [facility] CO2 [Moles/Vol] 24 mmol/L 22 - 30 mmol/L [facility] Creatinine [Mass/Vol] 0.82 mg/dL 0.73 - 1.22 mg/dL [facility] GFR/1.73 sq M.predicted among non-blacks MDRD (S/P/Bld) [Vol rate/Area] 91 mL/min/{1.73_m2} - PINF [facility] Comment on above: Estimated Glomerular Filtration Rate (eGFR) is calculated using the 2020 CKD-EPI creatinine equation. This equation utilizes serum creatinine, sex, and age as parameters. The creatinine assay has traceable calibration to isotope dilution-mass spectrometry. Refer to KDIGO guidelines for clinical interpretation. In patients with unstable renal function, e.g. those with acute kidney injury, the eGFR may not accurately reflect actual GFR. Glucose [Mass/Vol] 316 mg/dL High 74 - 99 mg/dL [facility] Comment on above: The [place] Di[employer] [place] [employer] (ADA) provides guidance for cutoff values for fasting glucose and random glucose. The ADA defines fasting as no caloric intake for at least 8 hours. Fasting plasma glucose results between 100 to 125 mg/dL indicate increased risk for diabetes (prediabetes). Fasting plasma glucose results greater than or equal to 126 mg/dL meet the criteria for diagnosis of diabetes. In the absence of unequivocal hyperglycemia, results should be confirmed by repeat testing. In a patient with classic symptoms of hyperglycemia or hyperglycemic crisis, random plasma glucose results greater than or equal to 200 mg/dL meet the criteria for diagnosis of diabetes. Reference: Standards of Medical Care in Diabetes 2016, [place] [employer]. Diabetes Care. 2016.39(Suppl 1). Potassium [Moles/Vol] 3.7 mmol/L 3.7 - 5.1 mmol/L [facility] Protein [Mass/Vol] 6.5 g/dL 6.3 - 8.0 g/dL [facility] Sodium [Moles/Vol] 137 mmol/L 136 - 144 mmol/L [facility] Urea nitrogen [Mass/Vol] 14 mg/dL 9 - 24 mg/dL [facility] Comprehensive metabolic 2000 panelon 03-01-2024 Albumin [Mass/Vol] 3.6 g/dL Low 3.9-4.9 [facility] Comment on above: Order Comment: Speci men Type: BLOOD SPECIMENOrdering Facility: [facility] Address: [address] [place] [address] Performed By: #### 2 4323-8, ####[facility] [id number] [place] [address] [place] ALP [Catalytic activity/Vol] 98 U/L Normal 38-113 [facility] Comment on above: Order Comment: Speci men Type: BLOOD SPECIMENOrdering Facility: [facility] Address: [address] [place] [address] Performed By: #### 2 432-8, ####[facility] CLAU MILLTOWNCLIA [id number] [place] [address] [place] ALT [Catalytic activity/Vol] 9 U/L Low 10-54 [facility] Comment on above: Order Comment: Speci men Type: BLOOD SPECIMENOrdering Facility: [facility] Address: [address] [place] [address] Performed By: #### 2 432-8, ####[facility] MILLTOWNCLIA [id number] [place] [address] [place] Anion gap [Moles/Vol] 14 mmol/L Normal 8-15 [facility] Comment on above: Order Comment: Speci men Type: BLOOD SPECIMENOrdering Facility: [facility] Address: [address] [place] [address] Performed By: #### 2 4328, ####[facility] NORTHLIA [id number] [place] [address] [place] AST [Catalytic activity/Vol] 14 U/L Normal 14-40 [facility] Comment on above: Order Comment: Speci men Type: BLOOD SPECIMENOrdering Facility: [facility] Address: [address] [place] [address] Performed By: #### 2 432-8, ####[facility] MILLTOWNCLIA [id number] [place] [address] [place] Bilirubin [Mass/Vol] 0.6 mg/dL Normal 0.2-1.3 [facility] Comment on above: Order Comment: Speci men Type: BLOOD SPECIMENOrdering Facility: [facility] Address: [address] [place] [address] Performed By: #### 2 4323-8, ####[facility] MILLBAYARDNCLIA [id number] [place] [address] [place] Calcium [Mass/Vol] 9.2 mg/dL Normal 8.5-10.2 [facility] Comment on above: Order Comment: Speci men Type: BLOOD SPECIMENOrdering Facility: [facility] Address: [address] [place] [address] Performed By: #### 2 4323-8, ####[facility] MILLTOWGIANNALIA [id number] [place] [address] [place] Chloride [Moles/Vol] 99 mmol/L Normal 98-107 [facility] Comment on above: Order Comment: Speci men Type: BLOOD SPECIMENOrdering Facility: [facility] Address: [address] [place] [address] Performed By: #### 2 4323-8, ####[facility] GARDENNiraliNCBECKYA [id number] [place] [address] [place] CO2 [Moles/Vol] 24 mmol/L Normal 22-30 [facility] Comment on above: Order Comment: Speci men Type: BLOOD SPECIMENOrdering Facility: [facility] Address: [address] [place] [address] Performed By: #### 2 4323-8, ####[facility] MILLJEFFERYWGIANNALIA [id number] [place] [address] [place] Creatinine [Mass/Vol] 0.82 mg/dL Normal 0.73-1.22 [facility] Comment on above: Order Comment: Speci men Type: BLOOD SPECIMENOrdering Facility: [facility] Address: [address] [place] [address] Performed By: #### 2 4323-8, ####[facility] MILLTOWNCLIA [id number] [place] [address] [place] Creatinine and Glomerular filtration rate.predicted panel (S/P/Bld) 91 mL/min/1.73m??? Normal >=60 [facility] Comment on above: Order Comment: Willam robles Type: BLOOD SPECIMENOrdering Facility: [facility] Address: [address] [place] [address] Result Comment: Rod mated Glomerular Filtration Rate (eGFR) is calculated using the 2020 CKD-EPI creatinine equation. This equation utilizes serum creatinine, sex, and age as parameters. The creatinine assay has traceable calibration to isotope dilution-mass spectrometry. Refer to KDIGO guidelines for clinical interpretation. In patients with unstable renal function, e.g. those with acute kidney injury, the eGFR may not accurately reflect actual GFR. Performed By: #### 2 4323-8, 42185-7 ####[facility] [id number] [place] [address] [place] Glucose [Mass/Vol] 316 mg/dL High 74-99 [facility] Comment on above: Order Comment: Willam robles Type: BLOOD SPECIMENOrdering Facility: [facility] Address: [address] [place] [address] Result Comment: The [place] Diabetes Association (ADA) provides guidance for cutoff values for fasting glucose and random glucose. The ADA defines fasting as no caloric intake for at least 8 hours. Fasting plasma glucose results between 100 to 125 mg/dL indicate increased risk for diabetes (prediabetes).Fasting plasma glucose results greater than or equal to 126 mg/dL meet the criteria for diagnosis of diabetes. In the absence of unequivocal hyperglycemia, results should be confirmed by repeat testing. In a patient with classic symptoms of hyperglycemia or hyperglycemic crisis, random plasma glucose results greater than or equal to 200 mg/dL meet the criteria for diagnosis of diabetes.Reference: Standards of Medical Care in Diabetes 2016, [place] [employer] Association. Diabetes Care. 2016.39(Suppl 1). Performed By: #### 2 4323-8, 79468-2 ####[facility]ITALNCLIA [id number] [place] [address] [place] Potassium [Moles/Vol] 3.7 mmol/L Normal 3.7-5.1 [facility] Comment on above: Order Comment: Speci men Type: BLOOD SPECIMENOrdering Facility: [facility] Address: [address] [place] [address] Performed By: #### 2 4323-8, ####[facility] CLAU TEDDYRYAN [id number] [place] [address] [place] Protein [Mass/Vol] 6.5 g/dL Normal 6.3-8.0 [facility] Comment on above: Order Comment: Speci men Type: BLOOD SPECIMENOrdering Facility: [facility] Address: [address] [place], [place] [address] Performed By: #### 2 4323-8, ####[facility] CLAU ANGEL [id number] [place] [address] [place] Sodium [Moles/Vol] 137 mmol/L Normal 136-144 [facility] Comment on above: Order Comment: Speci men Type: BLOOD SPECIMENOrdering Facility: [facility] Address: [address] [place], [place] [address] Performed By: #### 2 4323-8, ####[facility] CLAU ORTIZ [id number] [place] [address] [place] Urea nitrogen [Mass/Vol] 14 mg/dL Normal 9-24 [facility] Comment on above: Order Comment: Speci men Type: BLOOD SPECIMENOrdering Facility: [facility] Address: [address] [place], [place] [address] Performed By: #### 2 4323-8, ####[facility] CLAU XIMENAFALGUNIA [id number] [place] [address] [place] MAGNESIUMon 03-01-2024 Magnesium [Mass/Vol] 1.5 mg/dL Low 1.7 - 2 .3 mg/dL [facility] Magnesium SerPl-mCncon 03-01 Magnesium [Mass/Vol] 1.5 mg/dL Low 1.7-2.3 [facility] Comment on above: Order Comment: Speci men Type: BLOOD SPECIMENOrdering Facility: [facility] Address: [address] [place] [id number] Performed By: #### 2 4323-8, 04965-6 ####[facility] [id number] [address] [facility] No Panel InformationOrdered By: Mady Cabello on 03-01-2024 Interpretation and review of laboratory results Abnormal [facility] CBC W Auto Differential pane l (Bld)on 02-16-2024 Basophils (Bld) [#/Vol] 0.04 10*3/uL [facility] Basophils/100 WBC (Bld) 0.7 % [facility] Differential cell count method Nom (Bld) Auto [facility] Eosinophils (Bld) [#/Vol] 0.10 10*3/uL [facility] Eosinophils/100 WBC (Bld) 1.8 % [facility] Erythrocyte distribution width (RBC) [Ratio] 21.6 % High 11.5 - 15.0 % [facility] Hematocrit (Bld) [Volume fraction] 33.6 % Low 39.0 - 51.0 % [facility] Hemoglobin (Bld) [Mass/Vol] 10.4 g/dL Low 13.0 - 17.0 g/dL [facility] Immature granulocytes (Bld) [#/Vol] 0.05 10*3/uL [facility] Immature granulocytes/100 WBC (Bld) 0.9 % [facility] Interpretation and review of laboratory results Abnormal [facility] Lymphocytes (Bld) [#/Vol] 0.64 10*3/uL Low [facility] Lymphocytes/100 WBC (Bld) 11.4 % [facility] MCH (RBC) [Entitic mass] 25.4 pg Low 26.0 - 34.0 pg [facility] MCHC (RBC) [Mass/Vol] 31.0 g/dL 30.5 - 36.0 g/dL [facility] MCV (RBC) [Entitic vol] 82.2 fL 80.0 - 100.0 fL [facility] Monocytes (Bld) [#/Vol] 0.54 10*3/uL NINF [facility] Monocytes/100 WBC (Bld) 9.6 % [facility] Neutrophils (Bld) [#/Vol] 4.23 10*3/uL [facility] Neutrophils/100 WBC (Bld) 75.6 % [facility] Nucleated RBC (Bld) [#/Vol] NINF [facility] Nucleated RBC/100 WBC (Bld) [Ratio] 0.0 % /100 WBC [facility] Platelet mean volume (Bld) [Entitic vol] 8.3 fL Low 9.0 - 12.7 fL [facility] Platelets (Bld) [#/Vol] 252 10*3/uL [facility] RBC (Bld) [#/Vol] 4.09 10*6/uL Low 4.20 - 6.0 0 m/uL [facility] WBC (Bld) [#/Vol] 5.60 10*3/uL [facility] Basophils (Bld) [#/Vol] 0.04 10*3/uL Normal <0.11 [facility] Comment on above: Order Comment: Speci men Type: BLOOD SPECIMENOrdering Facility: [facility] Address: [address] [place] [address] Performed By: #### 5 7021-8 ####[facility] [id number] [place] [address] [place] Basophils/100 WBC (Bld) 0.7 % Normal [facility] Comment on above: Order Comment: Speci men Type: BLOOD SPECIMENOrdering Facility: [facility] Address: [address] [place] [address] Performed By: #### 5 7021-8 ####[facility] [id number] [place] [address] [place] Differential cell count method Nom (Bld) Auto Normal [facility] Comment on above: Order Comment: Speci men Type: BLOOD SPECIMENOrdering Facility: [facility] Address: [address] [place] [address] Performed By: #### 5 7021-8 ####[facility] MILLWNCLIA [id number] [place] [address] [place] Eosinophils (Bld) [#/Vol] 0.10 10*3/uL Normal <0.46 [facility] Comment on above: Order Comment: Speci men Type: BLOOD SPECIMENOrdering Facility: [facility] Address: [address] [place] [address] Performed By: #### 5 7021-8 ####[facility] NORTHLIA [id number] [place] [address] [place] Eosinophils/100 WBC (Bld) 1.8 % Normal [facility] Comment on above: Order Comment: Speci men Type: BLOOD SPECIMENOrdering Facility: [facility] Address: [address] [place] [address] Performed By: #### 5 7021-8 ####[facility] NORTHLIA [id number] [place] [address] [place] Erythrocyte distribution width (RBC) [Ratio] 21.6 % High 11.5-15.0 [facility] Comment on above: Order Comment: Speci men Type: BLOOD SPECIMENOrdering Facility: [facility] Address: [address] [place] [address] Performed By: #### 5 7021-8 ####[facility] NORTHLIA [id number] [place] [address] [place] Hematocrit (Bld) [Volume fraction] 33.6 % Low 39.0-51.0 [facility] Comment on above: Order Comment: Speci men Type: BLOOD SPECIMENOrdering Facility: [facility] Address: [address] [place] [address] Performed By: #### 5 7021-8 ####[facility]ITALNCLIA [id number] [place] [address] [place] Hemoglobin (Bld) [Mass/Vol] 10.4 g/dL Low 13.0-17.0 [facility] Comment on above: Order Comment: Speci men Type: BLOOD SPECIMENOrdering Facility: [facility] Address: [address] [place] [address] Performed By: #### 5 7021-8 ####[facility] HOSPITALNCA [id number] [place] [address] [place] Immature granulocytes (Bld) [#/Vol] 0.05 10*3/uL Normal <0.10 [facility] Comment on above: Order Comment: Speci men Type: BLOOD SPECIMENOrdering Facility: [facility] Address: [address] [place] [address] Performed By: #### 5 7021-8 ####[facility] [id number] [address] [place] Immature granulocytes/100 WBC (Bld) 0.9 % Normal [facility] Comment on above: Order Comment: Speci men Type: BLOOD SPECIMENOrdering Facility: [facility] Address: [address] [place] [address] Performed By: #### 5 7021-8 ####[facility] [id number] [place] [address] [place] Lymphocytes (Bld) [#/Vol] 0.64 10*3/uL Low 1.00-4.00 [facility] Comment on above: Order Comment: Speci men Type: BLOOD SPECIMENOrdering Facility: [facility] Address: [address] [place] [address] Performed By: #### 5 7021-8 ####[facility]PITALNCLIA [id number] [place] [address] [place] Lymphocytes/100 WBC (Bld) 11.4 % Normal [facility] Comment on above: Order Comment: Speci men Type: BLOOD SPECIMENOrdering Facility: [facility] Address: [address] [place] [address] Performed By: #### 5 7021-8 ####[facility] TEDDYBAYARDBANG [id number] [place] [address] [place] MCH (RBC) [Entitic mass] 25.4 pg Low 26.0-34.0 [facility] Comment on above: Order Comment: Speci men Type: BLOOD SPECIMENOrdering Facility: [facility] Address: [address] [place] [address] Performed By: #### 5 7021-8 ####[facility] [id number] [place] [address] [place] MCHC (RBC) [Mass/Vol] 31.0 g/dL Normal 30.5-36.0 [facility] Comment on above: Order Comment: Speci men Type: BLOOD SPECIMENOrdering Facility: [facility] Address: [address] [place] [address] Performed By: #### 5 7021-8 ####[facility] [id number] [place] [address] [place] MCV (RBC) [Entitic vol] 82.2 fL Normal 80.0-100.0 [facility] Comment on above: Order Comment: Speci men Type: BLOOD SPECIMENOrdering Facility: [facility] Address: [address] [place] [address] Performed By: #### 5 7021-8 ####[facility] HOSPITALNCA [id number] [place] [address] [place] Monocytes (Bld) [#/Vol] 0.54 10*3/uL Normal <0.87 [facility] Comment on above: Order Comment: Speci men Type: BLOOD SPECIMENOrdering Facility: [facility] Address: [address] [place] [address] Performed By: #### 5 7021-8 ####[facility] MILLWNCLIA [id number] [place] [address] [place] Monocytes/100 WBC (Bld) 9.6 % Normal [facility] Comment on above: Order Comment: Speci men Type: BLOOD SPECIMENOrdering Facility: [facility] Address: [address] [place] [address] Performed By: #### 5 7021-8 ####[facility]PITALNCLIA [id number] [place] [address] [place] Neutrophils (Bld) [#/Vol] 4.23 10*3/uL Normal 1.45-7.50 [facility] Comment on above: Order Comment: Speci men Type: BLOOD SPECIMENOrdering Facility: [facility] Address: [address] [place] [address] Performed By: #### 5 7021-8 ####[facility] NORTHLIA [id number] [place] [address] [place] Neutrophils/100 WBC (Bld) 75.6 % Normal [facility] Comment on above: Order Comment: Speci men Type: BLOOD SPECIMENOrdering Facility: [facility] Address: [address] [place] [address] Performed By: #### 5 7021-8 ####[facility] NORTHLIA [id number] [place] [address] [place] Nucleated RBC (Bld) [#/Vol] 10*3/uL Normal <0.01 [facility] Comment on above: Order Comment: Speci men Type: BLOOD SPECIMENOrdering Facility: [facility] Address: [address] [place] [address] Performed By: #### 5 7021-8 ####[facility]ITALNCLIA [id number] [place] [address] [place] Nucleated RBC/100 WBC (Bld) [Ratio] 0.0 /100 WBC Normal [facility] Comment on above: Order Comment: Speci men Type: BLOOD SPECIMENOrdering Facility: [facility] Address: [address] [place] [address] Performed By: #### 5 7021-8 ####[facility] HOSPITALNCA [id number] [place] [address] [place] Platelet mean volume (Bld) [Entitic vol] 8.3 fL Low 9.0-12.7 [facility] Comment on above: Order Comment: Speci men Type: BLOOD SPECIMENOrdering Facility: [facility] Address: [address] [place] [address] Performed By: #### 5 7021-8 ####[facility]OSPITALNCA [id number] [place] [address] [place] Platelets (Bld) [#/Vol] 252 10*3/uL Normal 150-400 [facility] Comment on above: Order Comment: Speci men Type: BLOOD SPECIMENOrdering Facility: [facility] Address: [address] [place] [address] Performed By: #### 5 7021-8 ####[facility] HOSPITALNCA [id number] [place] [address] [place] RBC (Bld) [#/Vol] 4.09 10*6/uL Low 4.20-6.00 [facility] Comment on above: Order Comment: Speci men Type: BLOOD SPECIMENOrdering Facility: [facility] Address: [address] [place] [address] Performed By: #### 5 7021-8 ####[facility]PITALNCLIA [id number] [place] [address] [place] WBC (Bld) [#/Vol] 5.60 10*3/uL Normal 3.70-11.00 [facility] Comment on above: Order Comment: Speci men Type: BLOOD SPECIMENOrdering Facility: [facility] Address: [address] [place], [place] [address] [address] Performed By: #### 5 7021-8 ####[facility] CLAU ESPINALBAYARDBANG [id number] [place] [address] [place] CEA SerPl-mCncon 02-16-2024 Carcinoembryonic Ag [Mass/Vol] 41.6 ng/mL High <=2.9 [facility] Comment on above: Order Comment: Speci men Type: BLOOD SPECIMENOrdering Facility: [facility] Address: [address] [place] [address] Result Comment: Carc inoembryonic antigen test is used as an aid in monitoring response to treatment or recurrence in patients with established colorectal, breast, lung, prostatic, pancreatic, and ovarian carcinomas. Clinical correlation is required.The Carcinoembryonic antigen test was performed using the [employer] DXI paramagnetic particle chemiluminescent immunoassay method. Results obtained with different assay methods or kits cannot be used interchangeably. Performed By: #### 2 039-6 ####[facility] LABCLIA [id number] [place] [address] [place] CNOVSPon 02-16-2024 CNOVSP Normal [facility] metabolic 2000 panelOrdered By: Mady Cabello on 02-16-2024 Albumin [Mass/Vol] 3.6 g/dL Low 3.9 - 4.9 g/dL [facility] ALP [Catalytic activity/Vol] 84 U/L 38 - 113 U/L [facility] ALT [Catalytic activity/Vol] 11 U/L 10 - 54 U/L [facility] Anion gap [Moles/Vol] 12 mmol/L 8 - 15 mmol/L [facility] AST [Catalytic activity/Vol] 14 U/L 14 - 40 U/L [facility] Bilirubin [Mass/Vol] 0.6 mg/dL 0.2 - 1 .3 mg/dL [facility] Calcium [Mass/Vol] 9.0 mg/dL 8.5 - 10. 2 mg/dL [facility] Chloride [Moles/Vol] 98 mmol/L 98 - 10 7 mmol/L [facility] CO2 [Moles/Vol] 25 mmol/L 22 - 30 mmol/L [facility] Creatinine [Mass/Vol] 0.86 mg/dL 0.73 - 1.22 mg/dL [facility] GFR/1.73 sq M.predicted among non-blacks MDRD (S/P/Bld) [Vol rate/Area] 90 mL/min/{1.73_m2} - PINF [facility] Comment on above: Estimated Glomerular Filtration Rate (eGFR) is calculated using the 2020 CKD-EPI creatinine equation. This equation utilizes serum creatinine, sex, and age as parameters. The creatinine assay has traceable calibration to isotope dilution-mass spectrometry. Refer to KDIGO guidelines for clinical interpretation. In patients with unstable renal function, e.g. those with acute kidney injury, the eGFR may not accurately reflect actual GFR. Glucose [Mass/Vol] 320 mg/dL High 74 - 99 mg/dL [facility] Comment on above: The [place] Di[employer] Association (ADA) provides guidance for cutoff values for fasting glucose and random glucose. The ADA defines fasting as no caloric intake for at least 8 hours. Fasting plasma glucose results between 100 to 125 mg/dL indicate increased risk for diabetes (prediabetes). Fasting plasma glucose results greater than or equal to 126 mg/dL meet the criteria for diagnosis of diabetes. In the absence of unequivocal hyperglycemia, results should be confirmed by repeat testing. In a patient with classic symptoms of hyperglycemia or hyperglycemic crisis, random plasma glucose results greater than or equal to 200 mg/dL meet the criteria for diagnosis of diabetes. Reference: Standards of Medical Care in Diabetes 2016, [place] [employer]. Diabetes Care. 2016.39(Suppl 1). Potassium [Moles/Vol] 3.6 mmol/L Low 3.7 - 5.1 mmol/L [facility] Protein [Mass/Vol] 7.0 g/dL 6.3 - 8.0 g/dL [facility] Sodium [Moles/Vol] 135 mmol/L Low 136 - 144 mmol/L [facility] Urea nitrogen [Mass/Vol] 16 mg/dL 9 - 24 mg/dL [facility] Comprehensive metabolic 2000 panelon 02-16-2024 Albumin [Mass/Vol] 3.6 g/dL Low 3.9-4.9 [facility] Comment on above: Order Comment: Speci men Type: BLOOD SPECIMENOrdering Facility: [facility] Address: [address] [place] [address] Performed By: #### 2 4323-8, ####[facility] CLAU XIMENAWNCLIA [id number] [place] [address] [place] ALP [Catalytic activity/Vol] 84 U/L Normal 38-113 [facility] Comment on above: Order Comment: Speci men Type: BLOOD SPECIMENOrdering Facility: [facility] Address: [address] [place] [address] Performed By: #### 2 4323-8, ####[facility]ENWNCLIA [id number] [place] [address] [place] ALT [Catalytic activity/Vol] 11 U/L Normal 10-54 [facility] Comment on above: Order Comment: Speci men Type: BLOOD SPECIMENOrdering Facility: [facility] Address: [address] [place] [address] Performed By: #### 2 4323-8, ####[facility]PITALNCLIA [id number] [place] [address] [place] Anion gap [Moles/Vol] 12 mmol/L Normal 8-15 [facility] Comment on above: Order Comment: Speci men Type: BLOOD SPECIMENOrdering Facility: [facility] Address: [address] [place] [address] Performed By: #### 2 4323-8, ####[facility]ITALNCLIA [id number] [place] [address] [place] AST [Catalytic activity/Vol] 14 U/L Normal 14-40 [facility] Comment on above: Order Comment: Speci men Type: BLOOD SPECIMENOrdering Facility: [facility] Address: [address] [place] [address] Performed By: #### 2 4323-8, 66914-9 ####[facility] MILLTOWGIANNALIA [id number] [place] [id number] [place] Bilirubin [Mass/Vol] 0.6 mg/dL Normal 0.2-1.3 [facility] Comment on above: Order Comment: Speci men Type: BLOOD SPECIMENOrdering Facility: [facility] Address: [address] [place] [address] Performed By: #### 2 4323-8, ####[facility] MILLTOWGIANNALIA [id number] [place] [address] [place] Calcium [Mass/Vol] 9.0 mg/dL Normal 8.5-10.2 [facility] Comment on above: Order Comment: Speci men Type: BLOOD SPECIMENOrdering Facility: [facility] Address: [address] [place] [address] Performed By: #### 2 4323-8, ####[facility] HOSPITALGIANNALIA [id number] [place] [address] [place] Chloride [Moles/Vol] 98 mmol/L Normal 98-107 [facility] Comment on above: Order Comment: Speci men Type: BLOOD SPECIMENOrdering Facility: [facility] Address: [address] [place] [address] Performed By: #### 2 432-8, ####[facility] MILLWNCLIA [id number] [place] [address] [place] CO2 [Moles/Vol] 25 mmol/L Normal 22-30 [facility] Comment on above: Order Comment: Speci men Type: BLOOD SPECIMENOrdering Facility: [facility] Address: [address] [place] [address] Performed By: #### 2 4323-8, ####[facility] TEDDYBAYARDNCLIA [id number] [place] [address] [place] Creatinine [Mass/Vol] 0.86 mg/dL Normal 0.73-1.22 [facility] Comment on above: Order Comment: Willam robles Type: BLOOD SPECIMENOrdering Facility: [facility] Address: [address] [place] [address] Performed By: #### 2 4323-8, ####[facility] NORTHLIA [id number] [place] [address] [place] Creatinine and Glomerular filtration rate.predicted panel (S/P/Bld) 90 mL/min/1.73m??? Normal >=60 [facility] Comment on above: Order Comment: Willam robles Type: BLOOD SPECIMENOrdering Facility: [facility] Address: [address] [place] [address] Result Comment: Rod mated Glomerular Filtration Rate (eGFR) is calculated using the 2020 CKD-EPI creatinine equation. This equation utilizes serum creatinine, sex, and age as parameters. The creatinine assay has traceable calibration to isotope dilution-mass spectrometry. Refer to KDIGO guidelines for clinical interpretation. In patients with unstable renal function, e.g. those with acute kidney injury, the eGFR may not accurately reflect actual GFR. Performed By: #### 2 4323-8, ####[facility] NORTHLIA [id number] [place] [address] [place] Glucose [Mass/Vol] 320 mg/dL High 74-99 [facility] Comment on above: Order Comment: Willam men Type: BLOOD SPECIMENOrdering Facility: [facility] Address: [address] [id number] Result Comment: The [place] Diabetes Association (ADA) provides guidance for cutoff values for fasting glucose and random glucose. The ADA defines fasting as no caloric intake for at least 8 hours. Fasting plasma glucose results between 100 to 125 mg/dL indicate increased risk for diabetes (prediabetes).Fasting plasma glucose results greater than or equal to 126 mg/dL meet the criteria for diagnosis of diabetes. In the absence of unequivocal hyperglycemia, results should be confirmed by repeat testing. In a patient with classic symptoms of hyperglycemia or hyperglycemic crisis, random plasma glucose results greater than or equal to 200 mg/dL meet the criteria for diagnosis of diabetes.Reference: Standards of Medical Care in Diabetes 2016, [place] [employer] Association. Diabetes Care. 2016.39(Suppl 1). Performed By: #### 2 4323-8, ####[facility] MILLTOWGIANNALIA [id number] [place] [address] [place] Potassium [Moles/Vol] 3.6 mmol/L Low 3.7-5.1 [facility] Comment on above: Order Comment: Willam robles Type: BLOOD SPECIMENOrdering Facility: [facility] Address: [address] [place] [address] Performed By: #### 2 4323-8, ####[facility] G[facility]ENWGIANNALIMckenna [id number] [place] [address] [place] Protein [Mass/Vol] 7.0 g/dL Normal 6.3-8.0 [facility] Comment on above: Order Comment: Willam robles Type: BLOOD SPECIMENOrdering Facility: [facility] Address: [address] [place] [address] Performed By: #### 2 4323-8, ####[facility] GARDENWGIANNALIA [id number] [place] [address] [place] Sodium [Moles/Vol] 135 mmol/L Low 136-144 [facility] Comment on above: Order Comment: Patti margaret Type: BLOOD SPECIMENOrdering Facility: [facility] Address: [address] [place] [address] Performed By: #### 2 4323-8, ####[facility] G[facility]ENWNCLIA [id number] [place] [address] [place] Urea nitrogen [Mass/Vol] 16 mg/dL Normal 9-24 [facility] Comment on above: Order Comment: Speci men Type: BLOOD SPECIMENOrdering Facility: [facility] Address: [address] [place] [address] Performed By: #### 2 4323-8, ####[facility]ITALNCLI [id number] [place] [address] [place] MAGNESIUMon 02-16-2024 Magnesium [Mass/Vol] 1.3 mg/dL Low 1.7 - 2 .3 mg/dL [facility] Magnesium SerPl-mCncon 02-15 Magnesium [Mass/Vol] 1.3 mg/dL Low 1.7-2.3 [facility] Comment on above: Order Comment: Speci men Type: BLOOD SPECIMENOrdering Facility: [facility] Address: [address] [place] [address] Performed By: #### 2 4323-8, ####[facility] [id number] [place] [address] [place] No Panel InformationOrdered By: Mady Cabello on 02-16-2024 Interpretation and review of laboratory results Abnormal [facility] CNPNon 02-04-2024 CNPN Normal [facility] Bacteria Ur Culton Bacteria identified Cx Nom (U) ORGANISM ID: 1 10,000 -<50,000 CFU/ml Mixed microbiota No further workup Normal [facility] Comment on above: Performed By: #### 6 30-4 ####[facility] LABCLIA [id number] [place] [address] [place] C diff Tox gens Stl Ql ROYCE+p robeon 02-02-2024 C. difficile toxin genes ROYCE+probe Ql (Stl) Negative Normal Negative for C. difficile toxin by PCR [facility] Comment on above: Order Comment: Speci men Type: STOOL SPECIMENOrdering Facility: [facility] Address: [address] [place] [address] Performed By: #### 5 4067-4, 40816-9 ####[facility] LABCLIA [id number] [place] [address] [place] CBC W Auto Differential pane l (Bld)on 02-02-2024 Anisocytosis Ql (Bld) Present [facility] Basophils (Bld) [#/Vol] 0.08 10*3/uL [facility] Basophils/100 WBC (Bld) 3.0 % [facility] Differential cell count method Nom (Bld) Manual [facility] Eosinophils (Bld) [#/Vol] 0.03 10*3/uL [facility] Eosinophils/100 WBC (Bld) 1.0 % [facility] Erythrocyte distribution width (RBC) [Ratio] 19.5 % High 11.5 - 15.0 % [facility] Hematocrit (Bld) [Volume fraction] 39.4 % 39.0 - 51.0 % [facility] Hemoglobin (Bld) [Mass/Vol] 12.4 g/dL Low 13.0 - 17.0 g/dL [facility] Interpretation and review of laboratory results Abnormal [facility] Lymphocytes (Bld) [#/Vol] 0.81 10*3/uL Low [facility] Lymphocytes/100 WBC (Bld) 29.0 % [facility] MCH (RBC) [Entitic mass] 25.1 pg Low 26.0 - 34.0 pg [facility] MCHC (RBC) [Mass/Vol] 31.5 g/dL 30.5 - 36.0 g/dL [facility] MCV (RBC) [Entitic vol] 79.8 fL Low 80.0 - 100.0 fL [facility] Monocytes (Bld) [#/Vol] 0.73 10*3/uL [facility] Monocytes/100 WBC (Bld) 26.0 % [facility] Neutrophils (Bld) [#/Vol] 1.14 10*3/uL Low [facility] Neutrophils/100 WBC (Bld) 41.0 % [facility] Nucleated RBC (Bld) [#/Vol] [facility] Nucleated RBC/100 WBC (Bld) [Ratio] 0.0 % /100 WBC [facility] Platelet mean volume (Bld) [Entitic vol] 8.6 fL Low 9.0 - 12.7 fL [facility] Platelets (Bld) [#/Vol] 191 10*3/uL [facility] Comment on above: No clot detected. Platelets Estimate (Bld) [#/Vol] Adequate [facility] RBC (Bld) [#/Vol] 4.94 10*6/uL 4.20 - 6.0 0 m/uL [facility] Red Cell Morph Reviewed: see result s of individual morphologies [facility] Toxic granules LM Ql (Bld) Present [facility] WBC (Bld) [#/Vol] 2.79 10*3/uL Low [facility] This is an appended report. These results have been appended to a previously verified report. [facility] Anisocytosis Ql (Bld) Present Normal [facility] Comment on above: Order Comment: Speci men Type: BLOOD SPECIMENOrdering Facility: [facility] Address: [address] [place] [address] Performed By: #### 5 7021-8 ####[facility] LABORATORYCLIA [id number] [address] [id number] [place] [address] [place] Basophils (Bld) [#/Vol] 0.08 10*3/uL Normal <0.11 [facility] Comment on above: Order Comment: Speci men Type: BLOOD SPECIMENOrdering Facility: [facility] Address: [address] [place] [address] Performed By: #### 5 7021-8 ####[facility] LABORATORYCLIA [id number] [address] [id number] [place] [address] [place] Basophils/100 WBC (Bld) 3.0 % Normal [facility] Comment on above: Order Comment: Speci men Type: BLOOD SPECIMENOrdering Facility: [facility] Address: [address] [place] [address] Performed By: #### 5 7021-8 ####[facility] LABORATORYCLIA [id number] [address] [id number] [place] [address] [place] Differential cell count method Nom (Bld) Manual Normal [facility] Comment on above: Order Comment: Speci men Type: BLOOD SPECIMENOrdering Facility: [facility] Address: [address] [place] [address] Performed By: #### 5 7021-8 ####[facility] LABORATORYCLIA [id number] [id number] [place] [address] [place] Eosinophils (Bld) [#/Vol] 0.03 10*3/uL Normal <0.46 [facility] Comment on above: Order Comment: Speci men Type: BLOOD SPECIMENOrdering Facility: [facility] Address: [address] [place] [address] Performed By: #### 5 7021-8 ####[facility] LABORATORYCLIA [id number] [address] [id number] [place] [address] [place] Eosinophils/100 WBC (Bld) 1.0 % Normal [facility] Comment on above: Order Comment: Speci men Type: BLOOD SPECIMENOrdering Facility: [facility] Address: [address] [place] [address] Performed By: #### 5 7021-8 ####[facility] LABORATORYCLIA [id number] [address] [id number] [place] [address] [place] Erythrocyte distribution width (RBC) [Ratio] 19.5 % High 11.5-15.0 [facility] Comment on above: Order Comment: Speci men Type: BLOOD SPECIMENOrdering Facility: [facility] Address: [address] [place] [address] Performed By: #### 5 7021-8 ####[facility] LABORATORYCLIA [id number] [address] [id number] [place] [address] [place] Hematocrit (Bld) [Volume fraction] 39.4 % Normal 39.0-51.0 [facility] Comment on above: Order Comment: Speci men Type: BLOOD SPECIMENOrdering Facility: [facility] Address: [address] [place] [address] Performed By: #### 5 7021-8 ####[facility] LABORATORYCLIA [id number] [address] [id number] [place] [address] [place] Hemoglobin (Bld) [Mass/Vol] 12.4 g/dL Low 13.0-17.0 [facility] Comment on above: Order Comment: Speci men Type: BLOOD SPECIMENOrdering Facility: [facility] Address: [address] [place] [address] Performed By: #### 5 7021-8 ####[facility] LABORATORYCLIA [id number] [address] [id number] [place] [address] [place] Lymphocytes (Bld) [#/Vol] 0.81 10*3/uL Low 1.00-4.00 [facility] Comment on above: Order Comment: Speci men Type: BLOOD SPECIMENOrdering Facility: [facility] Address: [address] [place] [address] Performed By: #### 5 7021-8 ####[facility] LABORATORYCLIA [id number] [id number] [place] [address] STATES [facility] Lymphocytes/100 WBC (Bld) 29.0 % Normal [facility] Comment on above: Order Comment: Speci men Type: BLOOD SPECIMENOrdering Facility: [facility] Address: [address] [place] [address] Performed By: #### 5 7021-8 ####[facility] LABORATORYCLIA [id number] [id number] [place] [address] [place] MCH (RBC) [Entitic mass] 25.1 pg Low 26.0-34.0 [facility] Comment on above: Order Comment: Speci men Type: BLOOD SPECIMENOrdering Facility: [facility] Address: [address] [place] [address] Performed By: #### 5 7021-8 ####[facility] LABORATORYCLIA [id number] [address] [id number] [place] [address] [place] MCHC (RBC) [Mass/Vol] 31.5 g/dL Normal 30.5-36.0 [facility] Comment on above: Order Comment: Speci men Type: BLOOD SPECIMENOrdering Facility: [facility] Address: [address] [place] [address] Performed By: #### 5 7021-8 ####[facility] LABORATORYCLIA [id number] [address] [id number] [place] [address] [place] MCV (RBC) [Entitic vol] 79.8 fL Low 80.0-100.0 [facility] Comment on above: Order Comment: Speci men Type: BLOOD SPECIMENOrdering Facility: [facility] Address: [address] [place] [address] Performed By: #### 5 7021-8 ####[facility] LABORATORYCLIA [id number] [address] [id number] [place] [address] [place] Monocytes (Bld) [#/Vol] 0.73 10*3/uL Normal <0.87 [facility] Comment on above: Order Comment: Speci men Type: BLOOD SPECIMENOrdering Facility: [facility] Address: [address] [place] [address] Performed By: #### 5 7021-8 ####[facility] LABORATORYCLIA [id number] [address] [id number] [place] [address] [place] Monocytes/100 WBC (Bld) 26.0 % Normal [facility] Comment on above: Order Comment: Speci men Type: BLOOD SPECIMENOrdering Facility: [facility] Address: [address] [place] [address] Performed By: #### 5 7021-8 ####[facility] LABORATORYCLIA [id number] [address] [id number] [place] [address] [place] Neutrophils (Bld) [#/Vol] 1.14 10*3/uL Low 1.45-7.50 [facility] Comment on above: Order Comment: Speci men Type: BLOOD SPECIMENOrdering Facility: [facility] Address: [address] [place] [address] Performed By: #### 5 7021-8 ####[facility] LABORATORYCLIA [id number] [address] [id number] [place] [address] [place] Neutrophils/100 WBC (Bld) 41.0 % Normal [facility] Comment on above: Order Comment: Speci men Type: BLOOD SPECIMENOrdering Facility: [facility] Address: [address] [place] [address] Performed By: #### 5 7021-8 ####[facility] LABORATORYCLIA [id number] [address] [id number] [place] [address] [place] Nucleated RBC (Bld) [#/Vol] 10*3/uL Normal <0.01 [facility] Comment on above: Order Comment: Speci men Type: BLOOD SPECIMENOrdering Facility: [facility] Address: [address] [place] [address] Performed By: #### 5 7021-8 ####[facility] LABORATORYCLIA [id number] [address] [id number] [place] [address] [place] Nucleated RBC/100 WBC (Bld) [Ratio] 0.0 /100 WBC Normal [facility] Comment on above: Order Comment: Speci men Type: BLOOD SPECIMENOrdering Facility: [facility] Address: [address] [place] [address] Performed By: #### 5 7021-8 ####[facility] LABORATORYCLIA [id number] [address] [id number] [place] [address] [place] Platelet mean volume (Bld) [Entitic vol] 8.6 fL Low 9.0-12.7 [facility] Comment on above: Order Comment: Speci men Type: BLOOD SPECIMENOrdering Facility: [facility] Address: [address] [place] [address] Performed By: #### 5 7021-8 ####[facility] LABORATORYCLIA [id number] [address] [id number] [place] [address] [place] Platelets (Bld) [#/Vol] 191 10*3/uL Normal 150-400 [facility] Comment on above: Order Comment: Speci men Type: BLOOD SPECIMENOrdering Facility: [facility] Address: [address] [place] [address] Result Comment: No c lot detected. Performed By: #### 5 7021-8 ####[facility] LABORATORYCLIA [id number] [address] [id number] [place] [address] [place] Platelets Estimate (Bld) [#/Vol] Adequate Normal [facility] Comment on above: Order Comment: Speci men Type: BLOOD SPECIMENOrdering Facility: [facility] Address: [address] [place] [address] Performed By: #### 5 7021-8 ####[facility] LABORATORYCLIA [id number] [address] [id number] [place] [address] [place] RBC (Bld) [#/Vol] 4.94 10*6/uL Normal 4.20-6.00 [facility] Comment on above: Order Comment: Speci men Type: BLOOD SPECIMENOrdering Facility: [facility] Address: [address] [place] [address] Performed By: #### 5 7021-8 ####[facility] LABORATORYCLIA [id number] [address] [id number] [place] [address] [place] RED CELL MORPH Reviewed: see result s of individual morphologies Normal [facility] Comment on above: Order Comment: Speci men Type: BLOOD SPECIMENOrdering Facility: [facility] Address: [address] [place] [address] Performed By: #### 5 7021-8 ####[facility] LABORATORYCLIA [id number] [address] [id number] [place] [address] [place] Toxic granules LM Ql (Bld) Present Normal [facility] Comment on above: Order Comment: Speci men Type: BLOOD SPECIMENOrdering Facility: [facility] Address: [address] [place] [address] Performed By: #### 5 7021-8 ####[facility] LABORATORYCLIA [id number] [address] [id number] [place] [address] [place] WBC (Bld) [#/Vol] 2.79 10*3/uL Low 3.70-11.00 [facility] Comment on above: Order Comment: Speci men Type: BLOOD SPECIMENOrdering Facility: [facility] Address: [address] [place] [address] Performed By: #### 5 7021-8 ####[facility] LABORATORYCLIA [id number] [place] [address] [place] [facility] [id number] [place] [address] [place] CBC W/Diff, Automatedon 08-0 PATH REV Reviewed Normal [facility] Comment on above: Result Comment: Panc ytopenia. Leukopenia and neutropenia. Normocytic anemia. MILD Thrombocytopenia. Clinical correlation necessary. Ganesh Longoria M.D. 02/02/24 AMENDED REPORT 02/02/24 1454 PATH REV previously reported as: [place] Performed By: #### L 501.2450, L500.4050, L100.0100 #### [facility] [address] [place], [place], [id number] CEA SerPl-mCncon 02-02-2024 Carcinoembryonic Ag [Mass/Vol] 68.1 ng/mL High <=2.9 [facility] Comment on above: Order Comment: Speci men Type: BLOOD SPECIMENOrdering Facility: [facility] Address: [address] [place] [address] Result Comment: Carc inoembryonic antigen test is used as an aid in monitoring response to treatment or recurrence in patients with established colorectal, breast, lung, prostatic, pancreatic, and ovarian carcinomas. Clinical correlation is required.The Carcinoembryonic antigen test was performed using the [employer] DXI paramagnetic particle chemiluminescent immunoassay method. Results obtained with different assay methods or kits cannot be used interchangeably. Performed By: #### 2 039-6 ####[facility] LABCLIA [id number] [place] [address] [place] CNOVSPon 02-02-2024 CNOVSP Normal [facility] Comprehensive metabolic 2000 panelOrdered By: Cody Hurtado on 02-02-2024 Albumin [Mass/Vol] 3.4 g/dL Low 3.9 - 4.9 g/dL [facility] ALP [Catalytic activity/Vol] 88 U/L 38 - 113 U/L [facility] ALT [Catalytic activity/Vol] 6 U/L Low 10 - 54 U/L [facility] Anion gap [Moles/Vol] 10 mmol/L 8 - 15 mmol/L [facility] AST [Catalytic activity/Vol] 8 U/L Low 14 - 40 U/L [facility] Bilirubin [Mass/Vol] 1.0 mg/dL 0.2 - 1 .3 mg/dL [facility] Calcium [Mass/Vol] 8.8 mg/dL 8.5 - 10. 2 mg/dL [facility] Chloride [Moles/Vol] 96 mmol/L Low 98 - 10 7 mmol/L [facility] CO2 [Moles/Vol] 25 mmol/L 22 - 30 mmol/L [facility] Creatinine [Mass/Vol] 0.97 mg/dL 0.73 - 1.22 mg/dL [facility] GFR/1.73 sq M.predicted among non-blacks MDRD (S/P/Bld) [Vol rate/Area] 81 mL/min/{1.73_m2} - PINF [facility] Comment on above: Estimated Glomerular Filtration Rate (eGFR) is calculated using the 2020 CKD-EPI creatinine equation. This equation utilizes serum creatinine, sex, and age as parameters. The creatinine assay has traceable calibration to isotope dilution-mass spectrometry. Refer to KDIGO guidelines for clinical interpretation. In patients with unstable renal function, e.g. those with acute kidney injury, the eGFR may not accurately reflect actual GFR. Glucose [Mass/Vol] 196 mg/dL High 74 - 99 mg/dL [facility] Comment on above: The [place] Di[employer] [place] Association (ADA) provides guidance for cutoff values for fasting glucose and random glucose. The ADA defines fasting as no caloric intake for at least 8 hours. Fasting plasma glucose results between 100 to 125 mg/dL indicate increased risk for diabetes (prediabetes). Fasting plasma glucose results greater than or equal to 126 mg/dL meet the criteria for diagnosis of diabetes. In the absence of unequivocal hyperglycemia, results should be confirmed by repeat testing. In a patient with classic symptoms of hyperglycemia or hyperglycemic crisis, random plasma glucose results greater than or equal to 200 mg/dL meet the criteria for diagnosis of diabetes. Reference: Standards of Medical Care in Diabetes 2016, [place] [employer]. Diabetes Care. 2016.39(Suppl 1). Interpretation and review of laboratory results Abnormal [facility] Potassium [Moles/Vol] 3.7 mmol/L 3.7 - 5.1 mmol/L [facility] Protein [Mass/Vol] 6.5 g/dL 6.3 - 8.0 g/dL [facility] Sodium [Moles/Vol] 131 mmol/L Low 136 - 144 mmol/L [facility] Urea nitrogen [Mass/Vol] 24 mg/dL 9 - 24 mg/dL [facility] Comprehensive metabolic 2000 panelon 02-02-2024 Albumin [Mass/Vol] 3.4 g/dL Low 3.9-4.9 [facility] Comment on above: Order Comment: Speci men Type: BLOOD SPECIMENOrdering Facility: [facility] Address: [address] [place] [address] Performed By: #### 2 4323-8, ####[facility] [id number] [place] [address] [place] ALP [Catalytic activity/Vol] 88 U/L Normal 38-113 [facility] Comment on above: Order Comment: Speci men Type: BLOOD SPECIMENOrdering Facility: [facility] Address: [address] [place] [address] Performed By: #### 2 4323-8, ####[facility] [id number] [place] [address] [place] ALT [Catalytic activity/Vol] 6 U/L Low 10-54 [facility] Comment on above: Order Comment: Speci men Type: BLOOD SPECIMENOrdering Facility: [facility] [facility] Address: [address] [place] [address] Performed By: #### 2 4323-8, ####[facility] [id number] [place] [address] [place] Anion gap [Moles/Vol] 10 mmol/L Normal 8-15 [facility] Comment on above: Order Comment: Speci men Type: BLOOD SPECIMENOrdering Facility: [facility] Address: [address] [place] [address] Performed By: #### 2 4323-8, 83208-2 ####[facility] JENNIEGIANNACARLO [id number] [place] [address] [place] AST [Catalytic activity/Vol] 8 U/L Low 14-40 [facility] Comment on above: Order Comment: Speci men Type: BLOOD SPECIMENOrdering Facility: [facility] Address: [address] [place] [address] Performed By: #### 2 4323-8, 45625-2 ####[facility] TEDDYRYAN [id number] [place] [address] [place] Bilirubin [Mass/Vol] 1.0 mg/dL Normal 0.2-1.3 [facility] Comment on above: Order Comment: Speci men Type: BLOOD SPECIMENOrdering Facility: [facility] Address: [address] [place] [address] Performed By: #### 2 4323-8, 15219-5 ####[facility] TEDDYTRICIAA [id number] [place] [address] [place] Calcium [Mass/Vol] 8.8 mg/dL Normal 8.5-10.2 [facility] Comment on above: Order Comment: Speci men Type: BLOOD SPECIMENOrdering Facility: [facility] Address: [address] [place] [address] Performed By: #### 2 4323-8, ####[facility] TEDDYCAROLLIA [id number] [place] [address] [place] Chloride [Moles/Vol] 96 mmol/L Low 98-107 [facility] Comment on above: Order Comment: Speci men Type: BLOOD SPECIMENOrdering Facility: [facility] Address: [address] [place] [address] Performed By: #### 2 4323-8, 64615-5 ####[facility] XIMENAWNCLIA [id number] [place] [address] [place] CO2 [Moles/Vol] 25 mmol/L Normal 22-30 [facility] Comment on above: Order Comment: Speci men Type: BLOOD SPECIMENOrdering Facility: [facility] Address: [address] [place] [address] Performed By: #### 2 4323-8, ####[facility] [id number] [place] [address] [place] Creatinine [Mass/Vol] 0.97 mg/dL Normal 0.73-1.22 [facility] Comment on above: Order Comment: Speci men Type: BLOOD SPECIMENOrdering Facility: [facility] Address: [address] [place] [address] Performed By: #### 2 4323-8, ####[facility]ITAL[facility]CLIA [id number] [address] STATES OF [facility] Creatinine and Glomerular filtration rate.predicted panel (S/P/Bld) 81 mL/min/1.73m??? Normal >=60 [facility] Comment on above: Order Comment: Speci men Type: BLOOD SPECIMENOrdering Facility: [facility] Address: [address] [place] [address] Result Comment: Rod mated Glomerular Filtration Rate (eGFR) is calculated using the 2020 CKD-EPI creatinine equation. This equation utilizes serum creatinine, sex, and age as parameters. The creatinine assay has traceable calibration to isotope dilution-mass spectrometry. Refer to KDIGO guidelines for clinical interpretation. In patients with unstable renal function, e.g. those with acute kidney injury, the eGFR may not accurately reflect actual GFR. Performed By: #### 2 4323-8, 90240-7 ####[facility] [id number] [place] [address] [place] Glucose [Mass/Vol] 196 mg/dL High 74-99 [facility] Comment on above: Order Comment: Speci men Type: BLOOD SPECIMENOrdering Facility: [facility] Address: [address] [place], [place] [address] Result Comment: The [place] Diabetes Association (ADA) provides guidance for cutoff values for fasting glucose and random glucose. The ADA defines fasting as no caloric intake for at least 8 hours. Fasting plasma glucose results between 100 to 125 mg/dL indicate increased risk for diabetes (prediabetes).Fasting plasma glucose results greater than or equal to 126 mg/dL meet the criteria for diagnosis of diabetes. In the absence of unequivocal hyperglycemia, results should be confirmed by repeat testing. In a patient with classic symptoms of hyperglycemia or hyperglycemic crisis, random plasma glucose results greater than or equal to 200 mg/dL meet the criteria for diagnosis of diabetes.Reference: Standards of Medical Care in Diabetes 2016, [place] Diabetes Association. Diabetes Care. 2016.39(Suppl 1). Performed By: #### 2 4323-8, ####[facility] CLAU MILLTOWNCLIA [id number] [place] [address] [place] Potassium [Moles/Vol] 3.7 mmol/L Normal 3.7-5.1 [facility] Comment on above: Order Comment: Speci men Type: BLOOD SPECIMENOrdering Facility: [facility] Address: [address] [place] [address] Performed By: #### 2 4323-8, ####[facility] MILLTOWNCLIA [id number] [place] [address] [place] Protein [Mass/Vol] 6.5 g/dL Normal 6.3-8.0 [facility] Comment on above: Order Comment: Speci men Type: BLOOD SPECIMENOrdering Facility: [facility] Address: [address] [place] [address] Performed By: #### 2 4323-8, ####[facility] MILLTOWNCLIA [id number] [place] [address] [place] Sodium [Moles/Vol] 131 mmol/L Low 136-144 [facility] Comment on above: Order Comment: Speci men Type: BLOOD SPECIMENOrdering Facility: [facility] Address: [address] [place] [address] Performed By: #### 2 4323-8, 56877-1 ####[facility] [id number] [place] [address] [place] Urea nitrogen [Mass/Vol] 24 mg/dL Normal 9-24 [facility] Comment on above: Order Comment: Speci men Type: BLOOD SPECIMENOrdering Facility: [facility] Address: [address] [place] [address] Performed By: #### 2 4323-8, 02681-9 ####[facility]ITALNCA [id number] [place] [address] [place] Gastrointestinal pathogens i dentified ROYCE+probe Nom (Stl)on 02-02-2024 Campylobacter sp DNA ROYCE+probe Nom (Unsp spec) Not detected Normal Not Detected [facility] Comment on above: Order Comment: Speci men Type: STOOL SPECIMENOrdering Facility: [facility] Address: [address] [place] [address] Performed By: #### 5 4067-4, 14379-9 ####[facility] LABCLIA [id number] [place] [address] [place] Salmonella sp DNA ROYCE+probe Ql (Unsp spec) Not detected Normal Not Detected [facility] Comment on above: Order Comment: Speci men Type: STOOL SPECIMENOrdering Facility: [facility] Address: [address] [place] [address] Performed By: #### 5 4067-4, 73348-0 ####[facility] LABCLIA [id number] [place] [address] [place] Shiga toxin stx gene ROYCE+probe Nom (Unsp spec) Not detected Normal Not Detected [facility] Comment on above: Order Comment: Speci men Type: STOOL SPECIMENOrdering Facility: [facility] Address: [address] [place] [address] Performed By: #### 5 4067-4, 12030-3 ####[facility] LABCLIA [id number] [address] [place] Shigella sp DNA ROYCE+probe Ql (Unsp spec) Not detected Normal Not Detected [facility] Comment on above: Order Comment: Speci men Type: STOOL SPECIMENOrdering Facility: [facility] Address: [address] [place] [address] Performed By: #### 5 4067-4, 70983-9 ####[facility] LABCLIA [id number] [place] [address] [place] MAGNESIUMon 02-02-2024 Magnesium [Mass/Vol] 2.1 mg/dL 1.7 - 2 .3 mg/dL [facility] Magnesium SerPl-mCncon 02-01 Magnesium [Mass/Vol] 2.1 mg/dL Normal 1.7-2.3 [facility] Comment on above: Order Comment: Speci men Type: BLOOD SPECIMENOrdering Facility: [facility] Address: [address] [place] [address] Performed By: #### 2 4323-8, 42143-8 ####[facility] [id number] [place] [address] [place] Magnesium [Mass/Vol]on 02-01 Interpretation and review of laboratory results Normal [facility] No Panel InformationOrdered By: Cody Hurtado on 02-02-2024 [facility] Urinalysis complete panel (U )on 02-02-2024 Bacteria LM.HPF (Urine sed) [#/Area] Negative Normal Negative [facility] Comment on above: Order Comment: Speci men Type: URINE SPECIMENOrdering Facility: [facility] Address: [address] [place] [address] Performed By: #### 2 4356-8 ####[facility] LABCLIA [id number] [place] [address] [place] Bilirubin Ql (U) Negative Normal Negative [facility] Comment on above: Order Comment: Speci men Type: URINE SPECIMENOrdering Facility: [facility] Address: [address] [place] [address] Performed By: #### 2 4356-8 ####[facility] LABCLIA [id number] [place] [address] [place] Clarity (Unsp spec) Clear Normal Clear [facility] Comment on above: Order Comment: Speci men Type: URINE SPECIMENOrdering Facility: [facility] Address: [address] [place] [address] Performed By: #### 2 4356-8 ####[facility] LABCLIA [id number] [place] [address] [place] Color (U) Dark Yellow Abnormal Yellow [facility] Comment on above: Order Comment: Speci men Type: URINE SPECIMENOrdering Facility: [facility] Address: [address] [place] [address] Performed By: #### 2 4356-8 ####[facility] LABCLIA [id number] [place] [address] [place] Epithelial cells LM.HPF (Urine sed) [#/Area] Moderate Normal [facility] Comment on above: Order Comment: Speci men Type: URINE SPECIMENOrdering Facility: [facility] Address: [address] [place] [address] Performed By: #### 2 4356-8 ####[facility] LABCLIA [id number] [place] [address] [place] Glucose Test strip (U) [Mass/Vol] Negative Normal Negative [facility] Comment on above: Order Comment: Speci men Type: URINE SPECIMENOrdering Facility: [facility] Address: [address] [place] [address] Performed By: #### 2 4356-8 ####[facility] LABCLIA [id number] [place] [address] [place] Hemoglobin Ql (U) Negative Normal Negative [facility] Comment on above: Order Comment: Speci men Type: URINE SPECIMENOrdering Facility: [facility] Address: [address] [place] [address] Performed By: #### 2 4356-8 ####[facility] LABCLIA [id number] [place] [address] [place] Hyaline casts (Urine sed) [#/Area] 4-10 /LPF Abnormal 0 /LPF [facility] Comment on above: Order Comment: Speci men Type: URINE SPECIMENOrdering Facility: [facility] Address: [address] [place] [address] Performed By: #### 2 4356-8 ####[facility] LABCLIA [id number] [place] [address] [place] Ketones Ql (U) Negative Normal Negative [facility] Comment on above: Order Comment: Speci men Type: URINE SPECIMENOrdering Facility: [facility] Address: [address] [place] [address] Performed By: #### 2 4356-8 ####[facility] LABCLIA [id number] [place] [address] [place] Leukocyte esterase Test strip Ql (U) Negative Normal Negative [facility] Comment on above: Order Comment: Speci men Type: URINE SPECIMENOrdering Facility: [facility] Address: [address] [place] [address] Performed By: #### 2 4356-8 ####[facility] LABCLIA [id number] [place] [address] [place] Nitrite Ql (U) Negative Normal Negative [facility] Comment on above: Order Comment: Speci men Type: URINE SPECIMENOrdering Facility: [facility] Address: [address] [place] [address] Performed By: #### 2 4356-8 ####[facility] LABIA [id number] [place] [address] [place] pH (U) 6.0 [pH] Normal <8.5 [facility] Comment on above: Order Comment: Speci men Type: URINE SPECIMENOrdering Facility: [facility] Address: [address] [place] [address] Performed By: #### 2 4356-8 ####[facility] LABIA [id number] [place] [address] [place] Protein (U) [Mass/Vol] 2+ Abnormal Negative [facility] Comment on above: Order Comment: Speci men Type: URINE SPECIMENOrdering Facility: [facility] Address: [address] [place] [address] Performed By: #### 2 4356-8 ####[facility] LABIA [id number] [place] [address] [place] RBC LM.HPF (Urine sed) [#/Area] 0-2 /HPF Normal 0-2 /HPF [facility] Comment on above: Order Comment: Speci men Type: URINE SPECIMENOrdering Facility: [facility] Address: [address] [place] [address] Performed By: #### 2 4356-8 ####[facility] LABIA [id number] [place] [address] [place] Specific gravity (U) [Rel density] 1.026 Normal 1.005-1.030 [facility] Comment on above: Order Comment: Speci men Type: URINE SPECIMENOrdering Facility: [facility] Address: [address] [place] [address] Performed By: #### 2 4356-8 ####[facility] LABCLIA [id number] [place] [address] [place] Urobilinogen Ql (U) 1.0 EU/dL Normal 0.2-1.0 EU/dL [facility] Comment on above: Order Comment: Speci men Type: URINE SPECIMENOrdering Facility: [facility] Address: [address] [place] [address] Performed By: #### 2 4356-8 ####[facility] LABCLIA [id number] [place] [address] [place] WBC LM.HPF (Urine sed) [#/Area] 0-5 /HPF Normal 0-5 /HPF [facility] Comment on above: Order Comment: Speci men Type: URINE SPECIMENOrdering Facility: [facility] Address: [address] [place] [address] Performed By: #### 2 4356-8 ####[facility] LABIA [id number] [place] [address] [place] Abdomen/Pelvis W IV Cont ONL Yon 02-01-2024 Abdomen/Pelvis W IV Cont ONLY [facility] Imaging Services [address] [place] [address] [id number] Abdomen/Pelvis W IV Cont ONLY MR#: [id number] Acct: [id number] Name: DIPTI SIERRA Rep #: [id number] : 1945 M 78 From: Jesus yee MD PCP: Dr. Chaitanya Roe MD Status: REG ER Study: Abdomen/Pelvis W IV Cont ONLY Date of Exam: Exam# [id number] Ordering Dr: Genaro Pressley MD [id number] STUDY: CT ABDOMEN AND PELVIS WITH CONTRAST REASON FOR EXAM: Male, 78 years old. Abdominal pain and cramping with diarrhea/constipation. Patient has a history of stage IV colon cancer. RADIATION DOSAGE (If Supplied By Facility): CTDIvol = ( 15.89 ) mGy, DLP = ( 1098.2 ) mGycm TECHNIQUE: Transaxial images were obtained from the dome of the diaphragm to the symphysis pubis without oral contrast. IV 100mL Isovue-370 was administered. Sagittal and coronal images were reconstructed. Individualized dose optimization techniques were used for this CT. COMPARISON: None. FINDINGS: Multiple large pulmonary metastases are seen at the lung bases. The visualized portions of the heart are within normal limits. Multiple hypodense masses are seen in the liver in keeping with metastatic disease. Normal gallbladder and extrahepatic biliary system. Normal spleen. Normal pancreas. Normal bilateral adrenal glands. Normal right kidney. Normal left kidney. Normal visualized stomach. Increased markings in the peritoneal fat surrounding the distal and terminal ileum as it enters the descending colon. Mild degree of enteritis should be ruled out. The patient is status post right hemicolectomy. Scattered sigmoid diverticula. There is non-visualization of the appendix. There is diffuse atherosclerotic calcification of the abdominal aorta, without a demonstrated aneurysm. Normal inferior vena cava. Normal retroperitoneum. Normal urinary bladder. There are prostatic calcifications. Small bilateral inguinal lymph nodes. There are degenerative changes of the visualized lumbar spine. CT/Abdomen/Pelvis W IV Cont ONLY IMPRESSION: Pulmonary and hepatic metastasis. Status post right hemicolectomy with evidence of inflammatory changes in the distal and terminal ileum at the site of the anastomosis with the colon. Localized enteritis should be ruled out. Electronically Signed: Jesus Stout MD at 9:35 EDT , CC: Dr. Chaitanya Roe MD; Dr. Genaro Pressley MD Experimental Psychologist: Signed Normal [facility] 02-01-2024 Albumin [Mass/Vol] 2.6 g/dL Low 3.2-5.0 [facility] Comment on above: Performed By: #### L 501.2450, L500.4050, L100.0100 #### [facility] [address] [place], [address] Albumin/Globulin [Mass ratio] 0.6 {ratio} Low 0.9-2.4 [facility] Comment on above: Performed By: #### L 501.2450, L500.4050, L100.0100 #### [facility] [address] [place], [address] ALK P 86 U/L Normal 45-117 [facility] Comment on above: Performed By: #### L 501.2450, L500.4050, L100.0100 #### [facility] [address] [place], [address] ALT [Catalytic activity/Vol] 8 U/L Low 16-61 [facility] Comment on above: Performed By: #### L 501.2450, L500.4050, L100.0100 #### [facility] [address] [place], [address] AST [Catalytic activity/Vol] 10 U/L Low 15-37 [facility] Comment on above: Performed By: #### L 501.2450, L500.4050, L100.0100 #### [facility] [address] [place], [address] Bilirubin [Mass/Vol] 1.30 mg/dL High 0.20-1.00 [facility] Comment on above: Result Comment: For patients on eltrombopag therapy, use of Dimension Fyffe TBIL is not recommended. Performed By: #### L 501.2450, L500.4050, L100.0100 #### [facility] [address] [place], [address] BUN/CRE 22.5 RATIO High 10-20 [facility] Comment on above: Performed By: #### L 501.2450, L500.4050, L100.0100 #### [facility] [address] [place], [address] CA,Total 8.8 mg/dL Normal 8.5-10.1 [facility] Comment on above: Performed By: #### L 501.2450, L500.4050, L100.0100 #### [facility] [address] [place], [address] Chloride [Moles/Vol] 100 mmol/L Normal 98-107 [facility] Comment on above: Performed By: #### L 501.2450, L500.4050, L100.0100 #### [facility] [address] [place], [address] CO2 [Moles/Vol] 24.0 mmol/L Normal 21.0-32.0 [facility] Comment on above: Performed By: #### L 501.2450, L500.4050, L100.0100 #### [facility] [address] [place], [address] Creatinine [Mass/Vol] 1.20 mg/dL Normal 0.70-1.30 [facility] Comment on above: Result Comment: The validity of the calculated GFR GFRAA in patients over 70 years has not been determined. Clinical correlation is essential. Performed By: #### L 501.2450, L500.4050, L100.0100 #### [facility] [address] [place], [address] ECRCL 55.68 ml/min Normal [facility] Comment on above: Performed By: #### L 501.2450, L500.4050, L100.0100 #### [facility] [address] [place], [address] EST GFR - AA 76 mL/min Normal >60 [facility] Comment on above: Result Comment: Afri can [place] GFR Calc Performed By: #### L 501.2450, L500.4050, L100.0100 #### [facility] [address] [place], [address] GAP 7 Normal 5-15 [facility] Comment on above: Performed By: #### L 501.2450, L500.4050, L100.0100 #### [facility] [address] [place], [address] GFR/1.73 sq M.predicted among non-blacks MDRD (S/P/Bld) [Vol rate/Area] 63 mL/min/{1.73_m2} Normal >60 [facility] Comment on above: Result Comment: Non- GFR Calc Performed By: #### L 501.2450, L500.4050, L100.0100 #### [facility] [address] [place], [address] Globulin (S) [Mass/Vol] 4.3 g/dL High 2.2-4.2 [facility] Comment on above: Performed By: #### L 501.2450, L500.4050, L100.0100 #### [facility] [address] [place], [address] Glucose [Mass/Vol] 184 mg/dL High 74-106 [facility] Comment on above: Result Comment: Fast ing Glucose result greater than or equal to 126 mg/dL suggests DIABETES MELLITUS per A.D.A. criteria. Performed By: #### L 501.2450, L500.4050, L100.0100 #### [facility] [address] [place], [address] Potassium [Moles/Vol] 3.8 mmol/L Normal 3.5-5.1 [facility] Comment on above: Performed By: #### L 501.2450, L500.4050, L100.0100 #### [facility] [address] [place], [address] Sodium [Moles/Vol] 131 mmol/L Low 136-145 [facility] Comment on above: Performed By: #### L 501.2450, L500.4050, L100.0100 #### [facility] [address] [place], [address] T PROT 6.9 g/dL Normal 6.4-8.2 [facility] Comment on above: Performed By: #### L 501.2450, L500.4050, L100.0100 #### [facility] [address] [place], [address] Urea nitrogen [Mass/Vol] 27 mg/dL High 7-18 [facility] Comment on above: Performed By: #### L 501.2450, L500.4050, L100.0100 #### [facility] [address] [place], [address] Emergency Department Summary on 02-01-2024 Emergency Department Summary [facility] Medical Records Department [address] [place] [address] Emergency Department Summary 02/01/24 MR#: [id number] Acct: [id number] Name: DIPTI SIERRA Rep #: [id number] : 1945 78 From: Genaro Pressley MD PCP: Dr. Chaitanya Roe MD Status:DEP ER Location: ED HPI HPI - GI History of Present Illness Chief Complaint: Abd Pain Informant: patient and spouse/S.O. Abdominal Pain/Flank Pain Onset: Days Context: Gradual Onset Timing: Continuous Quality: Aching and Cramping Location: Diffuse Current Severity: Mild Maximum Severity: Mild Worsened by: Nothing Relieved by: Nothing Nausea/Vomiting/Emesis GI Symptom: Positive for Nausea and Vomiting Severity: Mild Diarrhea/Melena/Hematochez ia GI Symptom: Positive for Diarrhea; Negative for Melena or Hematochezia Onset: Days Stool Quality: Positive for Loose Severity: Mild Associated Symptoms Associated Symptoms: Negative for Dysuria, Frequency, Hematuria or Urgency Narrative Narrative: 78-year-old male history of stage IV colon cancer with metastases to his liver and lungs. Had partial colectomy and tumor resection done on 424 at [facility]. He does have a prior appendectomy. Has been undergoing chemotherapy about every 10 days the last 1 being Thursday a week ago through Dr. Aarti Bar oncologist at [facility]. Patient also has a history of diabetes. Says since last Thursday he has had intermittent abdominal pain and cramping. Says he feels bloated. He had some diarrhea. He has been taking Imodium for that. Denies any dysuria. No fever. He had 2 episodes of nausea and vomiting which is resolved. Denies any fevers had some mild chills. Denies any melena. Prior similar symptoms: No Recent Illness/Hospitalization: No [facility] Medical History Sleep apnea Colon cancer GERD (gastroesophageal reflux disease) High cholesterol HTN (hypertension) Home Medications ???Medication ???Instructions ???Recorded ???Last Taken ???Type aspirin 81 mg tablet,delayed 81 mg PO DAILY 01/07/22 Unknown History release glimepiride 4 mg tablet 4 mg PO DAILY 01/07/22 Unknown History lisinopril 10 1 tab PO DAILY 01/07/22 Unknown History mg-hydrochlorothiazide 12.5 mg tablet omeprazole 40 mg capsule,delayed 40 mg PO DAILY 01/07/22 Unknown History release pioglitazone 30 mg tablet 30 mg PO DAILY 01/07/22 Unknown History potassium chloride 10 mEq 10 meq PO DAILY 01/07/22 Unknown History capsule,extended release rosuvastatin 10 mg tablet 10 mg PO DAILY 01/07/22 Unknown History dexamethasone 4 mg tablet mg 02/01/24 Unknown History hydrochlorothiazide 12.5 mg capsule mg 02/01/24 Unknown History lidocaine-prilocaine 2.5 %-2.5 % 02/01/24 Unknown History topical cream mometasone 50 mcg/actuation nasal intranasal 02/01/24 Unknown History spray ondansetron HCl 8 mg tablet mg 02/01/24 Unknown History prochlorperazine maleate 10 mg mg 02/01/24 Unknown History tablet zolpidem 10 mg tablet mg 02/01/24 Unknown History Allergy/AdvReac Type Severity Reaction Status Date / Time lisinopril Allergy Severe Angioedema Verified 02/01/24 07:27 metformin Allergy Upset Verified 02/01/24 07:26 Stomach Surgical History History of ankle surgery History of knee replacement History of appendectomy History of colon resection Social History Smoking Status: Former smoker ROS ROS ED ROS Narrative Nausea, vomiting and diarrhea. Abdominal pain. Constitutional Constitutional ED: Reports chills ENT ENT ED: Denies ear pain Cardiovascular Cardiovascular: Denies chest pain Respiratory/Chest Respiratory/Chest: Denies cough Gastrointestinal Gastrointestinal: Reports abdominal pain, constipation, diarrhea, nausea and vomiting; Denies melena Genitourinary Genitourinary ED: Denies dysuria or hematuria Musculoskeletal Musculoskeletal: Reports back pain; Denies arthralgias Integumentary Denies abscess Neurologic Neurologic: Denies headache(s) Psychiatric Psychiatric: Denies anxiety Endocrine Endocrinology: Denies polydipsia Hematologic/Lymphatic Hematologic/Lymphatic: Denies easy bleeding Allergic/Immunologic Allergic/Immunologic ED: Denies mouth swelling EXAM Physical Exam Narrative Exam Narrative: Well-appearing 78-year-old male. Vital signs are stable. Afebrile. He does not look septic or toxic. He does look mildly dehydrated. H EENT exam pupils round react to light. No facial droop. Dry mucous membranes. Neck nontender no lymphadenopathy. Lungs clear to auscultation bilaterally. Heart tachycardic rate about 115 no murmur. Abdomen soft mildly tender. No peritoneal signs. No (more content not included)... Normal [facility] Lipaseon 02-01-2024 Lipase [Catalytic activity/Vol] U/L Low 13-75 [facility] Comment on above: Result Comment: Omar kirk note: LIPASE revised reference range effective 22. New Lipase methodology. Expected to produce lower values than the previous assay method. NEW Reference Range: 13 - 75 U/L Performed By: #### L 501.2450, L500.4050, L100.0100 #### [facility] [address] [place], [address] Urinalysis, Completeon 01-31 EPI,SQUAMOUS 0-5 SEEN Normal 0-5 [facility] Comment on above: Order Comment: CLEAN CATCH Performed By: #### L 400.0001 #### [facility] [address] [place], [address] WBC 0-5 SEEN Normal 0-5 [facility] Comment on above: Order Comment: CLEAN CATCH Performed By: #### L 400.0001 #### [facility] [address] [place], [address] BACTERIA 0 SEEN Normal None Seen [facility] Comment on above: Order Comment: CLEAN CATCH Performed By: #### L 400.0001 #### [facility] [address] [place], [address] Mucus Ql (Urine sed) 0 SEEN Normal [facility] Comment on above: Order Comment: CLEAN CATCH Performed By: #### L 400.0001 #### [facility] [address] [place], [address] RBC 0 SEEN Normal 0-5 [facility] Comment on above: Order Comment: CLEAN CATCH Performed By: #### L 400.0001 #### [facility] [address] [place], [address] CNPNon 01-29-2024 CNPN Normal [facility] CBC W Auto Differential pane l (Bld)on 01-19-2024 Basophils (Bld) [#/Vol] [facility] Basophils/100 WBC (Bld) 0.5 % [facility] Differential cell count method Nom (Bld) Auto [facility] Eosinophils (Bld) [#/Vol] 0.16 10*3/uL [facility] Eosinophils/100 WBC (Bld) 4.4 % [facility] Erythrocyte distribution width (RBC) [Ratio] 19.0 % High 11.5 - 15.0 % [facility] Hematocrit (Bld) [Volume fraction] 36.3 % Low 39.0 - 51.0 % [facility] Hemoglobin (Bld) [Mass/Vol] 11.0 g/dL Low 13.0 - 17.0 g/dL [facility] Immature granulocytes (Bld) [#/Vol] NINF [facility] Immature granulocytes/100 WBC (Bld) 0.3 % [facility] Interpretation and review of laboratory results Abnormal [facility] Lymphocytes (Bld) [#/Vol] 0.73 10*3/uL Low [facility] Lymphocytes/100 WBC (Bld) 19.9 % [facility] MCH (RBC) [Entitic mass] 24.8 pg Low 26.0 - 34.0 pg [facility] MCHC (RBC) [Mass/Vol] 30.3 g/dL Low 30.5 - 36.0 g/dL [facility] MCV (RBC) [Entitic vol] 81.9 fL 80.0 - 100.0 fL [facility] Monocytes (Bld) [#/Vol] 0.41 10*3/uL [facility] Monocytes/100 WBC (Bld) 11.2 % [facility] Neutrophils (Bld) [#/Vol] 2.33 10*3/uL [facility] Neutrophils/100 WBC (Bld) 63.7 % [facility] Nucleated RBC (Bld) [#/Vol] [facility] Nucleated RBC/100 WBC (Bld) [Ratio] 0.0 % /100 WBC [facility] Platelet mean volume (Bld) [Entitic vol] 8.3 fL Low 9.0 - 12.7 fL [facility] Platelets (Bld) [#/Vol] 178 10*3/uL [facility] RBC (Bld) [#/Vol] 4.43 10*6/uL 4.20 - 6.0 0 m/uL [facility] WBC (Bld) [#/Vol] 3.66 10*3/uL Low [facility] Basophils (Bld) [#/Vol] 10*3/uL Normal <0.11 [facility] Comment on above: Order Comment: Speci men Type: BLOOD SPECIMENOrdering Facility: [facility] Address: [address] [place], [place] [address] Performed By: #### 5 7021-8 ####[facility] CLAU ESPINALBAYARDBANG [id number] [place] [address] [place] Basophils/100 WBC (Bld) 0.5 % Normal [facility] Comment on above: Order Comment: Speci men Type: BLOOD SPECIMENOrdering Facility: [facility] Address: [address] [place] [address] Performed By: #### 5 7021-8 ####[facility] [id number] [place] [address] [place] Differential cell count method Nom (Bld) Auto Normal [facility] Comment on above: Order Comment: Speci men Type: BLOOD SPECIMENOrdering Facility: [facility] Address: [address] [place] [address] Performed By: #### 5 7021-8 ####[facility] [id number] [place] [address] [place] Eosinophils (Bld) [#/Vol] 0.16 10*3/uL Normal <0.46 [facility] Comment on above: Order Comment: Speci men Type: BLOOD SPECIMENOrdering Facility: [facility] Address: [address] [place] [address] Performed By: #### 5 7021-8 ####[facility] [id number] [place] [address] [place] Eosinophils/100 WBC (Bld) 4.4 % Normal [facility] Comment on above: Order Comment: Speci men Type: BLOOD SPECIMENOrdering Facility: [facility] Address: [address] [place] [address] Performed By: #### 5 7021-8 ####[facility] [id number] [place] [address] [place] Erythrocyte distribution width (RBC) [Ratio] 19.0 % High 11.5-15.0 [facility] Comment on above: Order Comment: Speci men Type: BLOOD SPECIMENOrdering Facility: [facility] Address: [address] [place] [address] Performed By: #### 5 7021-8 ####[facility] TEDDYBAYARDBANG [id number] [place] [address] [place] Hematocrit (Bld) [Volume fraction] 36.3 % Low 39.0-51.0 [facility] Comment on above: Order Comment: Speci men Type: BLOOD SPECIMENOrdering Facility: [facility] Address: [address] [place] [address] Performed By: #### 5 7021-8 ####[facility] [id number] [place] [address] [place] Hemoglobin (Bld) [Mass/Vol] 11.0 g/dL Low 13.0-17.0 [facility] Comment on above: Order Comment: Speci men Type: BLOOD SPECIMENOrdering Facility: [facility] Address: [address] [place] [address] Performed By: #### 5 7021-8 ####[facility] [id number] [place] [address] [place] Immature granulocytes (Bld) [#/Vol] 10*3/uL Normal <0.10 [facility] Comment on above: Order Comment: Speci men Type: BLOOD SPECIMENOrdering Facility: [facility] Address: [address] [place] [address] Performed By: #### 5 7021-8 ####[facility] [id number] [place] [address] [place] Immature granulocytes/100 WBC (Bld) 0.3 % Normal [facility] Comment on above: Order Comment: Speci men Type: BLOOD SPECIMENOrdering Facility: [facility] Address: [address] [place] [address] Performed By: #### 5 7021-8 ####[facility]ITALNCLIA [id number] [place] [address] [place] Lymphocytes (Bld) [#/Vol] 0.73 10*3/uL Low 1.00-4.00 [facility] Comment on above: Order Comment: Speci men Type: BLOOD SPECIMENOrdering Facility: [facility] Address: [address] [place] [address] Performed By: #### 5 7021-8 ####[facility] [id number] [place] [address] [place] Lymphocytes/100 WBC (Bld) 19.9 % Normal [facility] Comment on above: Order Comment: Speci men Type: BLOOD SPECIMENOrdering Facility: [facility] Address: [address] [place] [address] Performed By: #### 5 7021-8 ####[facility] [id number] [place] [address] [place] MCH (RBC) [Entitic mass] 24.8 pg Low 26.0-34.0 [facility] Comment on above: Order Comment: Speci men Type: BLOOD SPECIMENOrdering Facility: [facility] Address: [address] [place] [address] Performed By: #### 5 7021-8 ####[facility] [id number] [place] [address] [place] MCHC (RBC) [Mass/Vol] 30.3 g/dL Low 30.5-36.0 [facility] Comment on above: Order Comment: Speci men Type: BLOOD SPECIMENOrdering Facility: [facility] Address: [address] [place] [address] Performed By: #### 5 7021-8 ####[facility] [id number] [place] [address] [place] MCV (RBC) [Entitic vol] 81.9 fL Normal 80.0-100.0 [facility] Comment on above: Order Comment: Speci men Type: BLOOD SPECIMENOrdering Facility: [facility] Address: [address] [place] [address] Performed By: #### 5 7021-8 ####[facility] [id number] [place] [address] [place] Monocytes (Bld) [#/Vol] 0.41 10*3/uL Normal <0.87 [facility] Comment on above: Order Comment: Speci men Type: BLOOD SPECIMENOrdering Facility: [facility] Address: [address] [place] [address] Performed By: #### 5 7021-8 ####[facility] [id number] [place] [address] [place] Monocytes/100 WBC (Bld) 11.2 % Normal [facility] Comment on above: Order Comment: Speci men Type: BLOOD SPECIMENOrdering Facility: [facility] Address: [address] [place] [address] Performed By: #### 5 7021-8 ####[facility] [id number] [place] [address] [place] Neutrophils (Bld) [#/Vol] 2.33 10*3/uL Normal 1.45-7.50 [facility] Comment on above: Order Comment: Speci men Type: BLOOD SPECIMENOrdering Facility: [facility] Address: [address] [place] [address] Performed By: #### 5 7021-8 ####[facility] [id number] [place] [address] [place] Neutrophils/100 WBC (Bld) 63.7 % Normal [facility] Comment on above: Order Comment: Speci men Type: BLOOD SPECIMENOrdering Facility: [facility] Address: [address] [place] [address] Performed By: #### 5 7021-8 ####[facility]ITALNCBECKY [id number] [place] [address] [place] Nucleated RBC (Bld) [#/Vol] 10*3/uL Normal <0.01 [facility] Comment on above: Order Comment: Speci men Type: BLOOD SPECIMENOrdering Facility: [facility] Address: [address] [place] [address] Performed By: #### 5 7021-8 ####[facility] [id number] [place] [address] [place] Nucleated RBC/100 WBC (Bld) [Ratio] 0.0 /100 WBC Normal [facility] Comment on above: Order Comment: Speci men Type: BLOOD SPECIMENOrdering Facility: [facility] Address: [address] [place] [address] Performed By: #### 5 7021-8 ####[facility] [id number] [place] [address] [place] Platelet mean volume (Bld) [Entitic vol] 8.3 fL Low 9.0-12.7 [facility] Comment on above: Order Comment: Speci men Type: BLOOD SPECIMENOrdering Facility: [facility] Address: [address] [place] [address] Performed By: #### 5 7021-8 ####[facility]LIA [id number] [place] [address] [place] Platelets (Bld) [#/Vol] 178 10*3/uL Normal 150-400 [facility] Comment on above: Order Comment: Speci men Type: BLOOD SPECIMENOrdering Facility: [facility] Address: [address] [place] [address] Performed By: #### 5 7021-8 ####[facility]ITALNCLIA [id number] [place] [address] [place] RBC (Bld) [#/Vol] 4.43 10*6/uL Normal 4.20-6.00 [facility] Comment on above: Order Comment: Speci men Type: BLOOD SPECIMENOrdering Facility: [facility] Address: [address] [place] [address] Performed By: #### 5 7021-8 ####[facility]ITALNCLIA [id number] [place] [address] [place] WBC (Bld) [#/Vol] 3.66 10*3/uL Low 3.70-11.00 [facility] Comment on above: Order Comment: Speci men Type: BLOOD SPECIMENOrdering Facility: [facility] Address: [address] [place] [address] Performed By: #### 5 7021-8 ####[facility]IA [id number] [place] [address] [place] CEA SerPl-mCncon 01-19-2024 Carcinoembryonic Ag [Mass/Vol] 15.5 ng/mL High <=2.9 [facility] Comment on above: Order Comment: Speci men Type: BLOOD SPECIMENOrdering Facility: [facility] Address: [address] [place] [address] Result Comment: Carc inoembryonic antigen test is used as an aid in monitoring response to treatment or recurrence in patients with established colorectal, breast, lung, prostatic, pancreatic, and ovarian carcinomas. Clinical correlation is required.The Carcinoembryonic antigen test was performed using the [employer] DXI paramagnetic particle chemiluminescent immunoassay method. Results obtained with different assay methods or kits cannot be used interchangeably. Performed By: #### 2 039-6 ####[facility] LABCLIA [id number] [place] [address] [place] CNOVSPon 01-19-2024 CNOVSP Normal [facility] CNPNon 01-19-2024 CNPN Normal [facility] Comprehensive metabolic 2000 panelOrdered By: Cody Hurtado on 01-19-2024 Albumin [Mass/Vol] 3.8 g/dL Low 3.9 - 4.9 g/dL [facility] ALP [Catalytic activity/Vol] 99 U/L 38 - 113 U/L [facility] ALT [Catalytic activity/Vol] 7 U/L Low 10 - 54 U/L [facility] Anion gap [Moles/Vol] 9 mmol/L 8 - 15 mmol/L [facility] AST [Catalytic activity/Vol] 11 U/L Low 14 - 40 U/L [facility] Bilirubin [Mass/Vol] 0.3 mg/dL 0.2 - 1 .3 mg/dL [facility] Calcium [Mass/Vol] 8.7 mg/dL 8.5 - 10. 2 mg/dL [facility] Chloride [Moles/Vol] 100 mmol/L 98 - 10 7 mmol/L [facility] CO2 [Moles/Vol] 29 mmol/L 22 - 30 mmol/L [facility] Creatinine [Mass/Vol] 0.83 mg/dL 0.73 - 1.22 mg/dL [facility] GFR/1.73 sq M.predicted among non-blacks MDRD (S/P/Bld) [Vol rate/Area] 91 mL/min/{1.73_m2} - PINF [facility] Comment on above: Estimated Glomerular Filtration Rate (eGFR) is calculated using the 2020 CKD-EPI creatinine equation. This equation utilizes serum creatinine, sex, and age as parameters. The creatinine assay has traceable calibration to isotope dilution-mass spectrometry. Refer to KDIGO guidelines for clinical interpretation. In patients with unstable renal function, e.g. those with acute kidney injury, the eGFR may not accurately reflect actual GFR. Glucose [Mass/Vol] 175 mg/dL High 74 - 99 mg/dL [facility] Comment on above: The [place] Diab[employer] Association (ADA) provides guidance for cutoff values for fasting glucose and random glucose. The ADA defines fasting as no caloric intake for at least 8 hours. Fasting plasma glucose results between 100 to 125 mg/dL indicate increased risk for diabetes (prediabetes). Fasting plasma glucose results greater than or equal to 126 mg/dL meet the criteria for diagnosis of diabetes. In the absence of unequivocal hyperglycemia, results should be confirmed by repeat testing. In a patient with classic symptoms of hyperglycemia or hyperglycemic crisis, random plasma glucose results greater than or equal to 200 mg/dL meet the criteria for diagnosis of diabetes. Reference: Standards of Medical Care in Diabetes 2016, [place] [employer]. Diabetes Care. 2016.39(Suppl 1). Potassium [Moles/Vol] 3.6 mmol/L Low 3.7 - 5.1 mmol/L [facility] Protein [Mass/Vol] 6.6 g/dL 6.3 - 8.0 g/dL [facility] Sodium [Moles/Vol] 138 mmol/L 136 - 144 mmol/L [facility] Urea nitrogen [Mass/Vol] 19 mg/dL 9 - 24 mg/dL [facility] Comprehensive metabolic 2000 panelon 01-19-2024 Albumin [Mass/Vol] 3.8 g/dL Low 3.9-4.9 [facility] Comment on above: Order Comment: Willam robles Type: BLOOD SPECIMENOrdering Facility: [facility] Address: [address] [place] [address] Performed By: #### 2 4328, ####[facility] H[facility]PITALTOWNCLIA [id number] [place] [address] [place] ALP [Catalytic activity/Vol] 99 U/L Normal 38-113 [facility] Comment on above: Order Comment: Willam robles Type: BLOOD SPECIMENOrdering Facility: [facility] Address: [address] [place] [address] Performed By: #### 2 43209-03, ####[facility] MILLWNCLIA [id number] [place] [address] [place] ALT [Catalytic activity/Vol] 7 U/L Low 10-54 [facility] Comment on above: Order Comment: Patti margaret Type: BLOOD SPECIMENOrdering Facility: [facility] Address: [address] [place] [address] Performed By: #### 2 43209-03, ####[facility] [id number] [place] [address] [place] Anion gap [Moles/Vol] 9 mmol/L Normal 8-15 [facility] Comment on above: Order Comment: Speci men Type: BLOOD SPECIMENOrdering Facility: [facility] Address: [address] [place] [address] Performed By: #### 2 4323-8, ####[facility] MILLTOWNCLIA [id number] [place] [address] [place] AST [Catalytic activity/Vol] 11 U/L Low 14-40 [facility] Comment on above: Order Comment: Speci men Type: BLOOD SPECIMENOrdering Facility: [facility] Address: [address] [place] [address] Performed By: #### 2 4323-8, ####[facility] MILLWGIANNALIA [id number] [place] [address] [place] Bilirubin [Mass/Vol] 0.3 mg/dL Normal 0.2-1.3 [facility] Comment on above: Order Comment: Speci men Type: BLOOD SPECIMENOrdering Facility: [facility] Address: [address] [place] [address] Performed By: #### 2 4323-8, 67442-9 ####[facility] MILLTOWNCLIA [id number] [place] [address] [place] Calcium [Mass/Vol] 8.7 mg/dL Normal 8.5-10.2 [facility] Comment on above: Order Comment: Speci men Type: BLOOD SPECIMENOrdering Facility: [facility] Address: [address] [place] [address] Performed By: #### 2 4323-8, 29664-0 ####[facility] MILLTOWNCLIA [id number] [place] [address] [place] Chloride [Moles/Vol] 100 mmol/L Normal 98-107 [facility] Comment on above: Order Comment: Speci men Type: BLOOD SPECIMENOrdering Facility: [facility] Address: [address] [place], [place] [address] Performed By: #### 2 4323-8, 33963-3 ####[facility] [id number] [place] [address] [place] CO2 [Moles/Vol] 29 mmol/L Normal 22-30 [facility] Comment on above: Order Comment: Speci men Type: BLOOD SPECIMENOrdering Facility: [facility] Address: [address] [place] [address] Performed By: #### 2 4323-8, 94706-8 ####[facility] [id number] [place] [address] [place] Creatinine [Mass/Vol] 0.83 mg/dL Normal 0.73-1.22 [facility] Comment on above: Order Comment: Speci men Type: BLOOD SPECIMENOrdering Facility: [facility] Address: [address] [place] [address] Performed By: #### 2 4323-8, 72446-7 ####[facility]ITALNCLIA [id number] [address] [facility] Creatinine and Glomerular filtration rate.predicted panel (S/P/Bld) 91 mL/min/1.73m??? Normal >=60 [facility] Comment on above: Order Comment: Speci men Type: BLOOD SPECIMENOrdering Facility: [facility] Address: [address] [place] [address] Result Comment: Rod mated Glomerular Filtration Rate (eGFR) is calculated using the 2020 CKD-EPI creatinine equation. This equation utilizes serum creatinine, sex, and age as parameters. The creatinine assay has traceable calibration to isotope dilution-mass spectrometry. Refer to KDIGO guidelines for clinical interpretation. In patients with unstable renal function, e.g. those with acute kidney injury, the eGFR may not accurately reflect actual GFR. Performed By: #### 2 4323-8, ####[facility] HOSPITALGIANNALIMckenna [id number] [place] [id number] [place] Glucose [Mass/Vol] 175 mg/dL High 74-99 [facility] Comment on above: Order Comment: Speci men Type: BLOOD SPECIMENOrdering Facility: [facility] Address: [address] [place] [address] Result Comment: The [place] Diabetes Association (ADA) provides guidance for cutoff values for fasting glucose and random glucose. The ADA defines fasting as no caloric intake for at least 8 hours. Fasting plasma glucose results between 100 to 125 mg/dL indicate increased risk for diabetes (prediabetes).Fasting plasma glucose results greater than or equal to 126 mg/dL meet the criteria for diagnosis of diabetes. In the absence of unequivocal hyperglycemia, results should be confirmed by repeat testing. In a patient with classic symptoms of hyperglycemia or hyperglycemic crisis, random plasma glucose results greater than or equal to 200 mg/dL meet the criteria for diagnosis of diabetes.Reference: Standards of Medical Care in Diabetes 2016, [place] Diabetes Association. Diabetes Care. 2016.39(Suppl 1). Performed By: #### 2 4323-8, ####[facility] [id number] [place] [address] [place] Potassium [Moles/Vol] 3.6 mmol/L Low 3.7-5.1 [facility] Comment on above: Order Comment: Patti men Type: BLOOD SPECIMENOrdering Facility: [facility] Address: [address] [place] [address] Performed By: #### 2 4323-8, ####[facility] [id number] [place] [address] [place] Protein [Mass/Vol] 6.6 g/dL Normal 6.3-8.0 [facility] Comment on above: Order Comment: Speci men Type: BLOOD SPECIMENOrdering Facility: [facility] Address: [address] [place] [address] Performed By: #### 2 4323-8, ####[facility] CLAU TEDDYTRICIAA [id number] [place] [address] [place] Sodium [Moles/Vol] 138 mmol/L Normal 136-144 [facility] Comment on above: Order Comment: Speci men Type: BLOOD SPECIMENOrdering Facility: [facility] Address: [address] [place], [place] [address] Performed By: #### 2 43238, ####[facility] ANGEL [id number] [place] [address] [place] Urea nitrogen [Mass/Vol] 19 mg/dL Normal 9-24 [facility] Comment on above: Order Comment: Speci men Type: BLOOD SPECIMENOrdering Facility: [facility] Address: [address] [place], [place] [address] Performed By: #### 2 4323-8, ####[facility] ANGEL [id number] [place] [address] [place] MAGNESIUMon 01-19-2024 Magnesium [Mass/Vol] 1.6 mg/dL Low 1.7 - 2 .3 mg/dL [facility] Magnesium SerPl-mCncon 01-18 Magnesium [Mass/Vol] 1.6 mg/dL Low 1.7-2.3 [facility] Comment on above: Order Comment: Speci men Type: BLOOD SPECIMENOrdering Facility: [facility] Address: [address] [place] [address] Performed By: #### 2 4323-8, ####[facility] MILLJEFFERYWNCLIA [id number] [place] [address] [place] No Panel InformationOrdered By: Cody Hurtado on 01-19-2024 Interpretation and review of laboratory results Abnormal [facility] CNPNon 01-11-2024 CNPN Normal [facility] CBC W Auto Differential pane l (Bld)on 01-06-2024 Basophils (Bld) [#/Vol] 0.07 10*3/uL [facility] Basophils/100 WBC (Bld) 1.0 % [facility] Differential cell count method Nom (Bld) Auto [facility] Eosinophils (Bld) [#/Vol] 0.37 10*3/uL [facility] Eosinophils/100 WBC (Bld) 5.0 % [facility] Erythrocyte distribution width (RBC) [Ratio] 19.8 % High 11.5 - 15.0 % [facility] Hematocrit (Bld) [Volume fraction] 38.1 % Low 39.0 - 51.0 % [facility] Hemoglobin (Bld) [Mass/Vol] 11.3 g/dL Low 13.0 - 17.0 g/dL [facility] Immature granulocytes (Bld) [#/Vol] 0.03 10*3/uL [facility] Immature granulocytes/100 WBC (Bld) 0.4 % [facility] Interpretation and review of laboratory results Abnormal [facility] Lymphocytes (Bld) [#/Vol] 0.88 10*3/uL Low [facility] Lymphocytes/100 WBC (Bld) 12.0 % [facility] MCH (RBC) [Entitic mass] 24.4 pg Low 26.0 - 34.0 pg [facility] MCHC (RBC) [Mass/Vol] 29.7 g/dL Low 30.5 - 36.0 g/dL [facility] MCV (RBC) [Entitic vol] 82.3 fL 80.0 - 100.0 fL [facility] Monocytes (Bld) [#/Vol] 0.54 10*3/uL [facility] Monocytes/100 WBC (Bld) 7.4 % [facility] Neutrophils (Bld) [#/Vol] 5.45 10*3/uL [facility] Neutrophils/100 WBC (Bld) 74.2 % [facility] Nucleated RBC (Bld) [#/Vol] [facility] Nucleated RBC/100 WBC (Bld) [Ratio] 0.0 % /100 WBC [facility] Platelet mean volume (Bld) [Entitic vol] 8.2 fL Low 9.0 - 12.7 fL [facility] Platelets (Bld) [#/Vol] 392 10*3/uL [facility] RBC (Bld) [#/Vol] 4.63 10*6/uL 4.20 - 6.0 0 m/uL [facility] WBC (Bld) [#/Vol] 7.34 10*3/uL [facility] Comprehensive metabolic 2000 panelOrdered By: Cody Hurtado on 01-06-2024 Albumin [Mass/Vol] 3.9 g/dL 3.9 - 4.9 g/dL [facility] ALP [Catalytic activity/Vol] 89 U/L 38 - 113 U/L [facility] ALT [Catalytic activity/Vol] 5 U/L Low 10 - 54 U/L [facility] Anion gap [Moles/Vol] 9 mmol/L 8 - 15 mmol/L [facility] AST [Catalytic activity/Vol] 9 U/L Low 14 - 40 U/L [facility] Bilirubin [Mass/Vol] 0.4 mg/dL 0.2 - 1 .3 mg/dL [facility] Calcium [Mass/Vol] 9.2 mg/dL 8.5 - 10. 2 mg/dL [facility] Chloride [Moles/Vol] 98 mmol/L 98 - 10 7 mmol/L [facility] CO2 [Moles/Vol] 29 mmol/L 22 - 30 mmol/L [facility] Creatinine [Mass/Vol] 0.88 mg/dL 0.73 - 1.22 mg/dL [facility] GFR/1.73 sq M.predicted among non-blacks MDRD (S/P/Bld) [Vol rate/Area] 89 mL/min/{1.73_m2} - PINF [facility] Comment on above: Estimated Glomerular Filtration Rate (eGFR) is calculated using the 2020 CKD-EPI creatinine equation. This equation utilizes serum creatinine, sex, and age as parameters. The creatinine assay has traceable calibration to isotope dilution-mass spectrometry. Refer to KDIGO guidelines for clinical interpretation. In patients with unstable renal function, e.g. those with acute kidney injury, the eGFR may not accurately reflect actual GFR. Glucose [Mass/Vol] 224 mg/dL High 74 - 99 mg/dL [facility] Comment on above: The [place] Diab[employer] s Association (ADA) provides guidance for cutoff values for fasting glucose and random glucose. The ADA defines fasting as no caloric intake for at least 8 hours. Fasting plasma glucose results between 100 to 125 mg/dL indicate increased risk for diabetes (prediabetes). Fasting plasma glucose results greater than or equal to 126 mg/dL meet the criteria for diagnosis of diabetes. In the absence of unequivocal hyperglycemia, results should be confirmed by repeat testing. In a patient with classic symptoms of hyperglycemia or hyperglycemic crisis, random plasma glucose results greater than or equal to 200 mg/dL meet the criteria for diagnosis of diabetes. Reference: Standards of Medical Care in Diabetes 2016, [place] [employer]. Diabetes Care. 2016.39(Suppl 1). Interpretation and review of laboratory results Abnormal [facility] Potassium [Moles/Vol] 3.9 mmol/L 3.7 - 5.1 mmol/L [facility] Protein [Mass/Vol] 7.6 g/dL 6.3 - 8.0 g/dL [facility] Sodium [Moles/Vol] 136 mmol/L 136 - 144 mmol/L [facility] Urea nitrogen [Mass/Vol] 15 mg/dL 9 - 24 mg/dL [facility] Albumin/Creatinineon 024 Albumin/Creatinine DL <= 20 mg/L (U) [Mass ratio] 15.6 ug/mg Creat Normal <30.0 [facility] Comment on above: Performed By: #### 2 4323-8 #### AKIL CASTLE ([id number]) [facility] ([facility]) [address] [place] [address] Albumin/Creatinine DL <= 20 mg/L (U) [Mass ratio]on 12-29-2023 Albumin DL <= 20 mg/L (U) [Mass/Vol] 19.1 mg/L Normal Not established [facility] Comment on above: Performed By: #### 2 4323-8 #### AKIL CASTLE ([id number]) [facility] ([facility]) [facility] [place] [address] Creatinine (U) [Mass/Vol] 122.8 mg/dL Normal 20.0-370.0 [facility] Comment on above: Performed By: #### 2 432-8 #### AKIL CASTLE ([id number]) [facility] ([facility]) [facility] [place] [address] Comprehensive metabolic 2000 panelon 12-25-2023 Albumin BCP dye [Mass/Vol] 3.8 g/dL Normal 3.4-5.0 [facility] Comment on above: Performed By: #### 2 4323-8 #### AKIL CASTLE ([id number]) [facility] ([facility]) [address] [place] [address] ALP [Catalytic activity/Vol] 79 U/L Normal 33-136 [facility] Comment on above: Performed By: #### 2 4323-8 #### AKIL CASTLE ([id number]) [facility] ([facility]) [address] [place] [address] ALT With P-5'-P [Catalytic activity/Vol] 8 U/L Low 10-52 [facility] Comment on above: Result Comment: Anais ents treated with Sulfasalazine may generate falsely decreased results for ALT. Performed By: #### 2 4323-8 #### AKIL CASTLE ([id number]) [facility] ([facility]) [address] [place] [address] Anion gap [Moles/Vol] 12 mmol/L Normal 10-20 [facility] Comment on above: Performed By: #### 2 4323-8 #### AKIL CASTLE ([id number]) [facility] ([facility]) [address] [place] [address] AST With P-5'-P [Catalytic activity/Vol] 12 U/L Normal 9-39 [facility] Comment on above: Performed By: #### 2 4323-8 #### AKIL CASTLE ([id number]) [facility] ([facility]) [address] [place] [address] Bilirubin [Mass/Vol] 0.5 mg/dL Normal 0.0-1.2 [facility] Comment on above: Performed By: #### 2 4323-8 #### AKIL CASTLE ([id number]) [facility] ([facility]) [address] [place] [address] [place] [address] Calcium [Mass/Vol] 9.0 mg/dL Normal 8.6-10.3 [facility] Comment on above: Performed By: #### 2 4323-8 #### AKIL CASTLE ([id number]) [facility] ([facility]) [address] [place] [address] Chloride [Moles/Vol] 101 mmol/L Normal 98-107 [facility] Comment on above: Performed By: #### 2 4323-8 #### AKIL CASTLE ([id number]) [facility] ([facility]) [address] [place] [address] CO2 [Moles/Vol] 30 mmol/L Normal 21-32 [facility] Comment on above: Performed By: #### 2 4323-8 #### AKIL CASTLE ([id number]) [facility] ([facility]) [address] [place] [address] Creatinine [Mass/Vol] 0.97 mg/dL Normal 0.50-1.30 [facility] Comment on above: Performed By: #### 2 4323-8 #### AKIL CASTLE ([id number]) [facility] ([facility]) [address] [place] [address]9500 Glomerular filtration rate/1.73 sq M.predicted 81 mL/min/1.73m*2 Normal >60 [facility] Comment on above: Result Comment: Calc ulations of estimated GFR are performed using the 2020 CKD-EPI Study Refit equation without the race variable for the IDMS-Traceable creatinine methods. https://jasn.asnjournals.org/content/early//ASN.143986 4586 Performed By: #### 2 4323-8 #### AKIL CASTLE ([id number]) [facility] ([facility]) [address] [place] [address] Glucose [Mass/Vol] 133 mg/dL High 74-99 [facility] Comment on above: Performed By: #### 2 4323-8 #### AKIL CASTLE ([id number]) [facility] ([facility]) [address] [place] [address] Potassium [Moles/Vol] 4.2 mmol/L Normal 3.5-5.3 [facility] Comment on above: Performed By: #### 2 4323-8 #### AKIL CASTLE ([id number]) [facility] ([facility]) [address] [place] [address] Protein [Mass/Vol] 6.8 g/dL Normal 6.4-8.2 [facility] Comment on above: Performed By: #### 2 4323-8 #### AKIL CASTLE ([id number]) [facility] ([facility]) [address] [place] [address]33[address] Sodium [Moles/Vol] 139 mmol/L Normal 136-145 [facility] Comment on above: Performed By: #### 2 4323-8 #### AKIL CASTLE ([id number]) [facility] ([facility]) [address] [place] [address] Urea nitrogen [Mass/Vol] 13 mg/dL Normal 6-23 [facility] Comment on above: Performed By: #### 2 4323-8 #### AKIL CASTLE ([id number]) [facility] ([facility]) [address] [place] [address] HbA1c (Bld) [Mass fraction]o n 12-25-2023 Average glucose Estimated from glycated hemoglobin (Bld) [Mass/Vol] 137 mg/dL Normal Not Established [facility] Comment on above: Order Comment: Diagn osis of Diabetes-Adults Non-Diabetic: < or = 5.6% Increased risk for developing diabetes: 5.7-6.4% Diagnostic of diabetes: > or = 6.5% Performed By: #### 4 548-4 #### AKIL CASTLE ([id number]) [facility] ([facility]) [address] [place] [address]03 Hemoglobin A1c/Hemoglobin.to jenny 12-25-2023 HbA1c (Bld) [Mass fraction] 6.4 % High see below [facility] Comment on above: Order Comment: Diagn osis of Diabetes-Adults Non-Diabetic: < or = 5.6% Increased risk for developing diabetes: 5.7-6.4% Diagnostic of diabetes: > or = 6.5% Performed By: #### 4 548-4 #### AKIL CASTLE ([id number]) [facility] ([facility]) [address] [place] [address] Lipid 1996 panelon 4 Cholesterol [Mass/Vol] 117 mg/dL Normal 0-199 [facility] Comment on above: Result Comment: Age Desirable Borderline High High 0-19 Y 0 - 169 170 - 199 >/= 200 20-24 Y 0 - 189 190 - 224 >/= 225 >24 Y 0 - 199 200 - 239 >/= 240 All ranges are based on fasting samples. Specific therapeutic targets will vary based on patient-specific cardiac risk. Pediatric guidelines reference:Pediatrics 2011, 128(S5).Adult guidelines reference: NCEP ATPIII Guidelines,MARISA 2001, 258:2486-97 Venipuncture immediately after or during the administration of Metamizole may lead to falsely low results. Testing should be performed immediately prior to Metamizole dosing. Performed By: #### 2 4323-8 #### AKIL CASTLE ([id number]) [facility] ([facility]) [address] [place] [address] Cholesterol in HDL [Mass/Vol] 32.0 mg/dL Normal [facility] Comment on above: Result Comment: Age Very Low Low Normal High 0-19 Y < 35 < 40 40-45 ---- 20-24 Y ---- < 40 >45 ---- >24 Y ---- < 40 40-60 >60 Performed By: #### 2 4323-8 #### AKIL CASTLE ([id number]) [facility] ([facility]) [facility] [place] [address] Cholesterol in LDL [Mass/Vol] 64 mg/dL Normal <=99 [facility] Comment on above: Result Comment: Near Borderline AGE Desirable Optimal High High Very High 0-19 Y 0 - 109 --- 110-129 >/= 130 ---- 20-24 Y 0 - 119 --- 120-159 >/= 160 ---- >24 Y 0 - 99 100-129 130-159 160-189 >/=190 Performed By: #### 2 4323-8 #### AKIL CASTLE ([id number]) [facility] ([facility]) [address] [place] [address]62 Cholesterol in VLDL [Mass/Vol] 21 mg/dL Normal 0-40 [facility] Comment on above: Performed By: #### 2 4323-8 #### AKIL CASTLE ([id number]) [facility] ([facility]) [address] [place] [address] 58833 CHOLESTEROL/HDL RATIO 3.7 Normal [facility] Comment on above: Result Comment: Ref Values Desirable < 3.4 High Risk > 5.0 Performed By: #### 2 4323-8 #### AKIL CASTLE ([id number]) [facility] ([facility]) [address] [place] [address] 07010 NON HDL CHOLESTEROL 85 mg/dL Normal 0-149 [facility] Comment on above: Result Comment: Age Desirable Borderline High High Very High 0-19 Y 0 - 119 120 - 144 >/= 145 >/= 160 20-24 Y 0 - 149 150 - 189 >/= 190 ---- >24 Y 30 mg/dL above LDL Cholesterol goal Performed By: #### 2 4323-8 #### AKIL CASTLE ([id number]) [facility] ([facility]) [address] [place] [address] 39980 Triglyceride [Mass/Vol] 105 mg/dL Normal 0-149 [facility] Comment on above: Result Comment: Age Desirable Borderline High High Very High 0 D-90 D 19 - 174 ---- ---- ---- 91 D- 9 Y 0 - 74 75 - 99 >/= 100 ---- 10-19 Y 0 - 89 90 - 129 >/= 130 ---- 20-24 Y 0 - 114 115 - 149 >/= 150 ---- >24 Y 0 - 149 150 - 199 200- 499 >/= 500 Venipuncture immediately after or during the administration of Metamizole may lead to falsely low results. Testing should be performed immediately prior to Metamizole dosing. Performed By: #### 2 4323-8 #### AKIL CASTLE ([id number]) [facility] ([facility]) [facility] [place] [address] Thyrotropinon 12-25-2023 TSH Qn 1.90 m[IU]/L Normal 0.44-3.98 [facility] Comment on above: Order Comment: TSH t esting is performed using different testing methodology at [facility] than at other [facility]. Direct result comparisons should only be made within the same method. Performed By: #### 2 4323-8 #### AKIL CASTLE ([id number]) [facility] ([facility]) [facility] [place] [id number] CBC W Auto Differential pane l (Bld)on 12-15-2023 Basophils (Bld) [#/Vol] 0.04 10*3/uL [facility] Basophils/100 WBC (Bld) 0.5 % [facility] Differential cell count method Nom (Bld) Auto [facility] Eosinophils (Bld) [#/Vol] 0.34 10*3/uL [facility] Eosinophils/100 WBC (Bld) 4.2 % [facility] Erythrocyte distribution width (RBC) [Ratio] 20.9 % High 11.5 - 15.0 % [facility] Hematocrit (Bld) [Volume fraction] 33.6 % Low 39.0 - 51.0 % [facility] Hemoglobin (Bld) [Mass/Vol] 9.9 g/dL Low 13.0 - 17.0 g/dL [facility] Immature granulocytes (Bld) [#/Vol] [facility] Immature granulocytes/100 WBC (Bld) 0.2 % [facility] Interpretation and review of laboratory results Abnormal [facility] Lymphocytes (Bld) [#/Vol] 0.90 10*3/uL Low [facility] Lymphocytes/100 WBC (Bld) 11.1 % [facility] MCH (RBC) [Entitic mass] 23.6 pg Low 26.0 - 34.0 pg [facility] MCHC (RBC) [Mass/Vol] 29.5 g/dL Low 30.5 - 36.0 g/dL [facility] MCV (RBC) [Entitic vol] 80.2 fL 80.0 - 100.0 fL [facility] Monocytes (Bld) [#/Vol] 0.49 10*3/uL NINF [facility] Monocytes/100 WBC (Bld) 6.0 % [facility] Neutrophils (Bld) [#/Vol] 6.32 10*3/uL [facility] Neutrophils/100 WBC (Bld) 78.0 % [facility] Nucleated RBC (Bld) [#/Vol] NINF [facility] Nucleated RBC/100 WBC (Bld) [Ratio] 0.0 % /100 WBC [facility] Platelet mean volume (Bld) [Entitic vol] 8.2 fL Low 9.0 - 12.7 fL [facility] Platelets (Bld) [#/Vol] 401 10*3/uL High [facility] RBC (Bld) [#/Vol] 4.19 10*6/uL Low 4.20 - 6.0 0 m/uL [facility] WBC (Bld) [#/Vol] 8.11 10*3/uL [facility] Comprehensive metabolic 2000 panelOrdered By: Mady Cabello on 12-15-2023 Albumin [Mass/Vol] 3.7 g/dL Low 3.9 - 4.9 g/dL [facility] ALP [Catalytic activity/Vol] 91 U/L 38 - 113 U/L [facility] ALT [Catalytic activity/Vol] 5 U/L Low 10 - 54 U/L [facility] Anion gap [Moles/Vol] 12 mmol/L 8 - 15 mmol/L [facility] AST [Catalytic activity/Vol] 11 U/L Low 14 - 40 U/L [facility] Bilirubin [Mass/Vol] 0.4 mg/dL 0.2 - 1 .3 mg/dL [facility] Calcium [Mass/Vol] 9.3 mg/dL 8.5 - 10. 2 mg/dL [facility] Chloride [Moles/Vol] 99 mmol/L 98 - 10 7 mmol/L [facility] CO2 [Moles/Vol] 25 mmol/L 22 - 30 mmol/L [facility] Creatinine [Mass/Vol] 0.91 mg/dL 0.73 - 1.22 mg/dL [facility] GFR/1.73 sq M.predicted among non-blacks MDRD (S/P/Bld) [Vol rate/Area] 87 mL/min/{1.73_m2} - PINF [facility] Comment on above: Estimated Glomerular Filtration Rate (eGFR) is calculated using the 2020 CKD-EPI creatinine equation. This equation utilizes serum creatinine, sex, and age as parameters. The creatinine assay has traceable calibration to isotope dilution-mass spectrometry. Refer to KDIGO guidelines for clinical interpretation. In patients with unstable renal function, e.g. those with acute kidney injury, the eGFR may not accurately reflect actual GFR. Glucose [Mass/Vol] 157 mg/dL High 74 - 99 mg/dL [facility] Comment on above: The [place] Di[employer] Association (ADA) provides guidance for cutoff values for fasting glucose and random glucose. The ADA defines fasting as no caloric intake for at least 8 hours. Fasting plasma glucose results between 100 to 125 mg/dL indicate increased risk for diabetes (prediabetes). Fasting plasma glucose results greater than or equal to 126 mg/dL meet the criteria for diagnosis of diabetes. In the absence of unequivocal hyperglycemia, results should be confirmed by repeat testing. In a patient with classic symptoms of hyperglycemia or hyperglycemic crisis, random plasma glucose results greater than or equal to 200 mg/dL meet the criteria for diagnosis of diabetes. Reference: Standards of Medical Care in Diabetes 2016, [place] [employer]. Diabetes Care. 2016.39(Suppl 1). Interpretation and review of laboratory results Abnormal [facility] Potassium [Moles/Vol] 3.9 mmol/L 3.7 - 5.1 mmol/L [facility] Protein [Mass/Vol] 7.6 g/dL 6.3 - 8.0 g/dL [facility] Sodium [Moles/Vol] 136 mmol/L 136 - 144 mmol/L [facility] Urea nitrogen [Mass/Vol] 18 mg/dL 9 - 24 mg/dL [facility] HBV core Ab Ql (S)on Interpretation and review of laboratory results Normal [facility] HBV surface Ab Ql (S)Ordered By: Deep Srinivasan on 12-15-2023 HBV surface Ab Qn (S) mIU/mL [facility] Comment on above: <8 mIU/mL: No serolo gical evidence of immunity to Hepatitis B Virus. >/= 8 to <12 mIU/mL: No serological evidence of immunity to Hepatitis B Virus. >/= 12 mIU/mL: Consistent with serological evidence of immunity to Hepatitis B Virus. [facility] HBV surface Ag Ql (S)on 11-27 Interpretation and review of laboratory results Normal [facility] HCV Ab Ql (S)on 12-15-2023 Interpretation and review of laboratory results Normal [facility] HEPATITIS B CORE ANTIBODY TO Jenny 12-15-2023 HBV core Ab Ql (S) Negative Negative [facility] Comment on above: No evidence of curre nt or past infection with Hepatitis B virus. Should recent infection be suspected, repeat testing may be considered 3-4 weeks after this draw. HEPATITIS B SURFACE ANTIBODY Ordered By: Deep Srinivasan on 12-15-2023 HBV surface Ab Ql (S) Negative [facility] Comment on above: No serological evide nce of immunity to Hepatitis B Virus. HEPATITIS B SURFACE ANTIGENo n 12-15-2023 HBV surface Ag Ql (S) Negative Negative [facility] HEPATITIS C ANTIBODY IA WITH CONFIRMATIONon 12-15-2023 HCV Ab Ql (S) Negative Negative [facility] Comment on above: The result suggests no evidence of active infection with Hepatitis C virus. Should recent infection be suspected, repeat testing may be considered 4-6 weeks after this draw. PET LEONARDO IMAG W CT SKULL TO T HIGHon 11-25-[address] W CT SKULL TO THIGH EXAMINATION: PET-CT HISTORY: ORDERING SYSTEM PROVIDED HISTORY: Colon cancer, stage IV, monitor; Colon cancer, CEA elevation, TECHNOLOGIST PROVIDED HISTORY: Illness/Other Reason for exam: Colon cancer, stage IV, monitor, Colon cancer, CEA elevation, Adenocarcinoma of colon Encounter Type: Initial Additional signs and symptoms: ORDERING SYSTEM PROVIDED DIAGNOSIS CODES: C18.9 Adenocarcinoma of colon (HCC) COMPARISON: CT chest, abdomen and pelvis, 10/20/2023. TECHNIQUE: The patient was injected with 10.8 mCi of F-18 fluorodeoxyglucose (FDG) and an emission scan was performed from the skull base to the midthigh. Non contrast CT was performed for attenuation correction and anatomic localization. The blood glucose level was 134 mg/dl. Uptake time is 62 minutes. Mediastinal blood pool SUVmax 2.1. SUV calculations based on body weight. FINDINGS: Head and Neck: No hypermetabolic mass or adenopathy. Chest: Multiple hypermetabolic bilateral lung masses and nodules are seen measuring up to 4.2 x 5.5 cm on the right with SUVmax 11.8. A mildly enlarged subcarinal lymph node shows uptake similar to blood pool. Focal uptake in the right hilum with SUVmax 6.8. No pleural effusion or pneumothorax. No pericardial effusion. There are coronary artery calcifications. Abdomen and Pelvis: Multiple hypermetabolic liver masses measuring up to 4.1 cm with SUVmax 10.2. Postsurgical changes are seen in the colon with nonspecific uptake at the surgical site, SUVmax 7.6. Spleen size is borderline. The pancreas and adrenal glands are unremarkable. No hydronephrosis. Prostate is mildly enlarged. No bowel obstruction. There is colonic diverticulosis. There is mild right lower quadrant fat stranding. Minimal free fluid. No free air. No aortic aneurysm. Musculoskeletal: Diffuse skeletal uptake suggesting bone marrow hyperplasia. No definite hypermetabolic bone lesion. IMPRESSION: 1. Postsurgical changes in the abdomen. 2. Hypermetabolic bilateral lung masses and hypermetabolic right hilar adenopathy, suspicious for metastatic disease. 3. Hypermetabolic liver masses, suspicious for metastatic disease. 4. No other convincing evidence of metastatic disease. 5. Additional incidental findings described above. [employer] Workstation ID: [id number] Dictated by: MARILEE HONG on ThuNovember 26, 2023 12:51:05 PM EDT Transcribed by: ROS DICKERSON on ThuNovember 26, 2023 1:21:00 PM EDT Finalized by: MARILEE HONG on ThuNovember 26, 2023 5:08:57 PM EDT Normal [facility] Comment on above: Order Comment: Injur y/Trauma or Illness?:Illness/Other How long have you had these symptoms (acute/chronic)?:Acute Reason for exam?:post-op port placement History of cancer?:no Surgeries, chemotherapy, or radiation?:no Type of Exam?:Initial Additional signs and symptoms?:. POC GLUCOSE - Sharon 024 Glucose [Mass/Vol] 134 mg/dL High 65-99 [facility] CBC W Auto Differential pane l (Bld)on 11-13-2023 Basophils (Bld) [#/Vol] 0.05 x10*3/uL Normal 0.00-0.10 [facility] Comment on above: Performed By: #### 5 7021-8 #### AKIL CASTLE ([id number]) [facility] ([facility]) [address] [place] [address] 33606 Basophils/100 WBC (Bld) 0.6 % Normal 0.0-2.0 [facility] Comment on above: Performed By: #### 5 7021-8 #### AKIL CASTLE ([id number]) [facility] ([facility]) [address] [place] [address] 07946 Eosinophils (Bld) [#/Vol] 0.25 x10*3/uL Normal 0.00-0.40 [facility] Comment on above: Performed By: #### 5 7021-8 #### AKIL CASTLE ([id number]) [facility] ([facility]) [address] [place] [address] 91633 Eosinophils/100 WBC (Bld) 2.9 % Normal 0.0-6.0 [facility] Comment on above: Performed By: #### 5 7021-8 #### AKIL CASTLE ([id number]) [facility] ([facility]) [address] [place] [address] 79062 Erythrocyte distribution width (RBC) [Ratio] 28.5 % High 11.5-14.5 [facility] Comment on above: Performed By: #### 5 7021-8 #### AKIL CASTLE ([id number]) [facility] ([facility]) [address] [place] [address] 15568 Hematocrit (Bld) [Volume fraction] 36.1 % Low 41.0-52.0 [facility] Comment on above: Performed By: #### 5 7021-8 #### AKIL CASTLE ([id number]) [facility] ([facility]) [address] [place] [address] 80583 Hemoglobin (Bld) [Mass/Vol] 9.8 g/dL Low 13.5-17.5 [facility] Comment on above: Performed By: #### 5 7021-8 #### AKIL CASTLE ([id number]) [facility] ([facility]) [address] [place] [address] 40946 Immature granulocytes (Bld) [#/Vol] 0.04 x10*3/uL Normal 0.00-0.50 [facility] Comment on above: Performed By: #### 5 7021-8 #### AKIL CASTLE ([id number]) [facility] ([facility]) [address] [place] [address] 00380 Immature granulocytes/100 WBC (Bld) 0.5 % Normal 0.0-0.9 [facility] Comment on above: Result Comment: Vannesa ture Granulocyte Count (IG) includes promyelocytes, myelocytes and metamyelocytes but does not include bands. Percent differential counts (%) should be interpreted in the context of the absolute cell counts (cells/UL). Performed By: #### 5 7021-8 #### AKIL CASTLE ([id number]) [facility] ([facility]) [address] [place] [address] 12761 Lymphocytes (Bld) [#/Vol] 0.83 x10*3/uL Normal 0.80-3.00 [facility] Comment on above: Performed By: #### 5 7021-8 #### AKIL CASTLE ([id number]) [facility] ([facility]) [address] [place] [address] 89994 Lymphocytes/100 WBC (Bld) 9.8 % Normal 13.0-44.0 [facility] Comment on above: Performed By: #### 5 7021-8 #### AKIL CASTLE ([id number]) [facility] ([facility]) [address] [place] [address] 97408 MCH (RBC) [Entitic mass] 22.2 pg Low 26.0-34.0 [facility] Comment on above: Performed By: #### 5 7021-8 #### AKIL CASTLE ([id number]) [facility] ([facility]) [address] [place] [address] 33097 MCHC (RBC) [Mass/Vol] 27.1 g/dL Low 32.0-36.0 [facility] Comment on above: Performed By: #### 5 7021-8 #### AKIL CASTLE ([id number]) [facility] ([facility]) [address] [place] [address] 82398 MCV (RBC) [Entitic vol] 82 fL Normal 80-100 [facility] Comment on above: Performed By: #### 5 7021-8 #### AKIL CASTLE ([id number]) [facility] ([facility]) [address] [place] [address] 64892 Monocytes (Bld) [#/Vol] 0.63 x10*3/uL Normal 0.05-0.80 [facility] Comment on above: Performed By: #### 5 7021-8 #### AKIL CASTLE ([id number]) [facility] ([facility]) [address] [place] [address] 82293 Monocytes/100 WBC (Bld) 7.4 % Normal 2.0-10.0 [facility] Comment on above: Performed By: #### 5 7021-8 #### AKIL CASTLE ([id number]) [facility] ([facility]) [address] [place] [address] 46442 Neutrophils (Bld) [#/Vol] 6.69 x10*3/uL High 1.60-5.50 [facility] Comment on above: Result Comment: Perc ent differential counts (%) should be interpreted in the context of the absolute cell counts (cells/uL). Performed By: #### 5 7021-8 #### AKIL CASTLE ([id number]) [facility] ([facility]) [address] [place] [address] 02759 Neutrophils/100 WBC (Bld) 78.8 % Normal 40.0-80.0 [facility] Comment on above: Performed By: #### 5 7021-8 #### AKIL CASTLE ([id number]) [facility] ([facility]) [address] [place] [address] 06297 Nucleated RBC/100 WBC (Bld) [Ratio] 0.0 /100 WBCs Normal 0.0-0.0 [facility] Comment on above: Performed By: #### 5 7021-8 #### AKIL CASTLE ([id number]) [facility] ([facility]) [address] [place] [address] 56977 Platelets (Bld) [#/Vol] 474 x10*3/uL High 150-450 [facility] Comment on above: Result Comment: Plat elet count verified by smear review. Performed By: #### 5 7021-8 #### AKIL CASTLE ([id number]) [facility] ([facility]) [address] [place] [address] 01700 RBC (Bld) [#/Vol] 4.41 x10*6/uL Low 4.50-5.90 [facility] Comment on above: Performed By: #### 5 7021-8 #### AKIL CASTLE ([id number]) [facility] ([facility]) [address] [place] [address] 80902 WBC (Bld) [#/Vol] 8.5 x10*3/uL Normal 4.4-11.3 [facility] Comment on above: Performed By: #### 5 7021-8 #### AKIL CASTLE ([id number]) [facility] ([facility]) [address] [place] [address] 91801 Cobalaminson 11-13-2023 Cobalamin (Vitamin B12) [Mass/Vol] 248 pg/mL Normal 211-911 [facility] Comment on above: Performed By: #### 2 132-9 #### AKIL CASTLE ([id number]) [facility] ([facility]) [address] [place] [address] 35157 Ferritinon 11-13-2023 Ferritin [Mass/Vol] 253 ng/mL Normal 20-300 [facility] Comment on above: Performed By: #### 2 276-4 #### AKIL CASTLE ([id number]) [facility] ([facility]) [address] [place] [address] 54255 Iron and Iron binding capaci ty panelon 11-13-2023 Iron [Mass/Vol] 26 ug/dL Low 35-150 [facility] Comment on above: Performed By: #### 5 0190-8 #### AKIL CASTLE ([id number]) [facility] ([facility]) [address] [place] [address] 46959 Iron binding capacity [Mass/Vol] 273 ug/dL Normal 240-445 [facility] Comment on above: Performed By: #### 5 0190-8 #### AKIL CASTLE ([id number]) [facility] ([facility]) [address] [place] [address] Iron binding capacity.unsaturated [Mass/Vol] 247 ug/dL Normal 110-370 [facility] Comment on above: Performed By: #### 5 0190-8 #### AKIL CASTLE ([id number]) [facility] ([facility]) [address] [place] [address] Iron saturation [Mass fraction] 10 % Low 25-45 [facility] Comment on above: Performed By: #### 5 0190-8 #### AKIL CASTLE ([id number]) [facility] ([facility]) [address] [place] [address] Reticulocytes panel (Bld)on 11-13-2023 Hemoglobin (Reticulocytes) [Entitic mass] 25 pg Low 28-38 [facility] Comment on above: Performed By: #### 5 0262-5 #### AKIL CASTLE ([id number]) [facility] ([facility]) [address] [place] [address] IMMATURE RETIC FRACTION 30.1 % High <=16.0 [facility] Comment on above: Result Comment: Reti culocytes are measured based on a fluorescent technique. The IRF, or immature reticulocyte fraction, is the percent of reticulocytes that show medium (MFR) or high (HFR) fluorescence. This value can be used to assess the relative maturity of the reticulocyte population in response to anemia. The shift reticulocytes are not measured by this technique, eliminating the need for their correction in the reticulocyte index. Performed By: #### 5 0262-5 #### AKIL CASTLE ([id number]) [facility] ([facility]) [address] [place] [address] Reticulocytes (Bld) [#/Vol] 0.076 x10*6/uL Normal 0.017-0.110 [facility] Comment on above: Performed By: #### 5 0262-5 #### AKIL CASTLE ([id number]) [facility] ([facility]) [address] [place] [address] Reticulocytes/100 RBC (Bld) 1.7 % Normal 0.5-2.0 [facility] Comment on above: Performed By: #### 5 0262-5 #### AKIL CASTLE ([id number]) [facility] ([facility]) [address] [place] [address] CEAon 11-11-2023 CEA 42.20 ng/mL High 0.00-2.50 [facility] Comment on above: Result Comment: Test performed using Luma MARIN Immunoassay system. Results determined by assays using different instrumentation may not be comparable. The reference range is for non-smokers. Some smokers may have elevated CEA, usually <5.00. Performed By: #### 4 5219 ####[facility] [address] [place], [place] [address] Dameon Wilkins M.D. [id number] COMPREHENSIVE METABOLIC PANE [facility] 11-11-2023 Albumin [Mass/Vol] 3.7 g/dL Normal 3.2-5.2 [facility] Comment on above: Order Comment: [facility] has implemented the eGFR calculation approach that does not have a coefficient for race that conforms to the NKF-ASN Task Force Recommendations. Performed By: #### 4 6126 ####[facility] [address] [place], [place] [address] Dameon Wilkins M.D. [id number] ALP [Catalytic activity/Vol] 109 U/L Normal 40-150 [facility] Comment on above: Order Comment: [facility] has implemented the eGFR calculation approach that does not have a coefficient for race that conforms to the NKF-ASN Task Force Recommendations. Performed By: #### 4 6126 ####[facility] [address] [place] [address] 03508 Dameon Wilkins M.D. [id number] ALT [Catalytic activity/Vol] 21 U/L Normal 0-50 U/L [facility] Comment on above: Order Comment: [facility] has implemented the eGFR calculation approach that does not have a coefficient for race that conforms to the NKF-ASN Task Force Recommendations. Performed By: #### 4 6126 ####[facility] [address] [place] [address] 09793 Dameon Wilkins M.D. [id number] Anion gap [Moles/Vol] 16 mmol/L Normal 10-20 [facility] Comment on above: Order Comment: [facility] has implemented the eGFR calculation approach that does not have a coefficient for race that conforms to the NKF-ASN Task Force Recommendations. Performed By: #### 4 6126 ####[facility] [address] [place] [address] 85609 Dameon Wilkins M.D. [id number] AST [Catalytic activity/Vol] 25 U/L Normal 0-50 U/L [facility] Comment on above: Order Comment: [facility] has implemented the eGFR calculation approach that does not have a coefficient for race that conforms to the NKF-ASN Task Force Recommendations. Performed By: #### 4 6126 ####[facility] [address] [place] [address] 23525 Dameon Wilkins M.D. [id number] Bilirubin [Mass/Vol] 0.5 mg/dL Normal 0.0-1.3 [facility] Comment on above: Order Comment: [facility] has implemented the eGFR calculation approach that does not have a coefficient for race that conforms to the NKF-ASN Task Force Recommendations. Performed By: #### 4 6126 ####[facility] [address] [place] [address] 68101 Dameon Wilkins M.D. [id number] Calcium [Mass/Vol] 9.0 mg/dL Normal 8.4-10.2 [facility] Comment on above: Order Comment: [facility] has implemented the eGFR calculation approach that does not have a coefficient for race that conforms to the NKF-ASN Task Force Recommendations. Performed By: #### 4 6126 ####[facility] [address] [place] [address] 10236 Dameon Wilkins M.D. [id number] Chloride [Moles/Vol] 99 mmol/L Normal 98-108 [facility] Comment on above: Order Comment: [facility] has implemented the eGFR calculation approach that does not have a coefficient for race that conforms to the NKF-ASN Task Force Recommendations. Performed By: #### 4 6126 ####[facility] [address] [place] [address] 70168 Dameon Wilkins M.D. [id number] Creatinine [Mass/Vol] 0.93 mg/dL Normal 0.80-1.30 [facility] Comment on above: Order Comment: [facility] has implemented the eGFR calculation approach that does not have a coefficient for race that conforms to the NKF-ASN Task Force Recommendations. Performed By: #### 4 6126 ####[facility] [address] [place] [address] 10794 Dameon Wilkins M.D. [id number] EGFR 85 mL/min/1.73 m2 Normal >=60 [facility] Comment on above: Order Comment: [facility] has implemented the eGFR calculation approach that does not have a coefficient for race that conforms to the NKF-ASN Task Force Recommendations. Result Comment: Rod mated GFR was calculated using the 2020 CKD-EPI creatinine equation. Performed By: #### 4 6126 ####[facility] [address] [place] [address] 6[address] Dameon Wilkins M.D. [id number] Glucose [Mass/Vol] 191 mg/dL High 65-99 [facility] Comment on above: Order Comment: [facility] has implemented the eGFR calculation approach that does not have a coefficient for race that conforms to the NKF-ASN Task Force Recommendations. Performed By: #### 4 6126 ####[facility] [address] [place] [address] 50470 Dameon Wilkins M.D. [id number] HCO3 (Bld) [Moles/Vol] 28 mmol/L Normal 21-32 [facility] Comment on above: Order Comment: [facility] has implemented the eGFR calculation approach that does not have a coefficient for race that conforms to the NKF-ASN Task Force Recommendations. Performed By: #### 4 6126 ####[facility] [address] [place] [address] 47112 Dameon Wilkins M.D. [id number] Potassium [Moles/Vol] 4.1 mmol/L Normal 3.5-5.1 [facility] Comment on above: Order Comment: [facility] has implemented the eGFR calculation approach that does not have a coefficient for race that conforms to the NKF-ASN Task Force Recommendations. Performed By: #### 4 6126 ####[facility] [address] [place], [place] [address] Dameon Wilkins M.D. [id number] Protein [Mass/Vol] 7.4 g/dL Normal 6.0-8.0 [facility] Comment on above: Order Comment: [facility] has implemented the eGFR calculation approach that does not have a coefficient for race that conforms to the NKF-ASN Task Force Recommendations. Performed By: #### 4 6126 ####[facility] [address] [place], [place] [address] Dameon Wilkins M.D. [id number] Sodium [Moles/Vol] 139 mmol/L Normal 135-145 [facility] Comment on above: Order Comment: [facility] has implemented the eGFR calculation approach that does not have a coefficient for race that conforms to the NKF-ASN Task Force Recommendations. Performed By: #### 4 6126 ####[facility] [address] [place] [address] Dameon Wilkins M.D. [id number] Urea nitrogen [Mass/Vol] 18 mg/dL Normal 8-25 [facility] Comment on above: Order Comment: [facility] has implemented the eGFR calculation approach that does not have a coefficient for race that conforms to the NKF-ASN Task Force Recommendations. Performed By: #### 4 6126 ####[facility] [address] [place] [address] Dameon Wilkins M.D. [id number] Urea nitrogen/Creatinine [Mass ratio] 19.4 mg/mg Normal 10.0-20.0 [facility] Comment on above: Order Comment: [facility] has implemented the eGFR calculation approach that does not have a coefficient for race that conforms to the NKF-ASN Task Force Recommendations. Performed By: #### 4 6126 ####[facility] [address] [place] [address] Dameon Wilkins M.D. [id number] Comprehensive metabolic 2000 panelon 11-11-2023 Albumin [Mass/Vol] 3.7 g/dL 3.2 - 5.2 g/dL [facility] ALP [Catalytic activity/Vol] 109 U/L 40 - 150 U/L [facility] ALT [Catalytic activity/Vol] 21 U/L 0-50 U/L [facility] Anion gap [Moles/Vol] 16 mmol/L 10 - 2 0 mmol/L [facility] AST [Catalytic activity/Vol] 25 U/L 0-50 U/L [facility] Bilirubin [Mass/Vol] 0.5 mg/dL 0.0 - 1 .3 mg/dL [facility] Calcium [Mass/Vol] 9.0 mg/dL 8.4 - 10. 2 mg/dL [facility] Chloride [Moles/Vol] 99 mmol/L 98 - 10 8 mmol/L [facility] Creatinine [Mass/Vol] 0.93 mg/dL 0.80 - 1.30 mg/dL [facility] GFR/1.73 sq M.predicted CKD-EPI (S/P/Bld) [Vol rate/Area] 85 - PINF [facility] Comment on above: Estimated GFR was ca lculated using the 2020 CKD-EPI creatinine equation. Glucose [Mass/Vol] 191 mg/dL High 65 - 99 mg/dL [facility] HCO3 [Moles/Vol] 28 mmol/L 21 - 32 mmol/L [facility] Interpretation and review of laboratory results Abnormal [facility] Potassium [Moles/Vol] 4.1 mmol/L 3.5 - 5.1 mmol/L [facility] Protein [Mass/Vol] 7.4 g/dL 6.0 - 8.0 g/dL [facility] Sodium [Moles/Vol] 139 mmol/L 135 - 145 mmol/L [facility] Urea nitrogen [Mass/Vol] 18 mg/dL 8 - 25 mg/dL [facility] Urea nitrogen/Creatinine [Mass ratio] 19.4 mg/mg 10.0 - 20.0 [facility] has implemented the eGFR calculation approach that does not have a coefficient for race that conforms to the NKF-ASN Task Force Recommendations. [facility] MTB SCREENon 11-11-2023 MITOGEN-NIL 1.2188 IU/mL Normal [facility] Comment on above: Performed By: #### L [id number] ####[facility] [address] [place] [address] Dameon Wilkins M.D. [id number] MTB SCREEN INTERPRETATION Negative Normal Negative [facility] Comment on above: Result Comment: No I FN-gamma response to M tuberculosis antigens was detected. Latent infection with M tuberculosis is unlikely. A single negative result does not exclude infection with M tuberculosis. In patients at high risk for M tuberculosis infection,a second test should be considered Performed By: #### L [id number] ####[facility] [address] [place] [address] Dameon Wilkins M.D. [id number] NIL 0.0312 IU/mL Normal [facility] Comment on above: Performed By: #### L [id number] ####[facility] [address] [place], [place] [id number] Dameon Wilkins M.D. [id number] TB1-NIL 0.0004 IU/mL Normal 0.00 0.34 [facility] Comment on above: Performed By: #### L [id number] ####[facility] [address] [place] [address] Dameon Wilkins M.D. [id number] TB2-NIL 0.0011 IU/mL Normal 0.00 0.34 [facility] Comment on above: Result Comment: Inte rferon gamma release is measured for specimens from each of the four collection tubes. A qualitative result (Negative, Positive, or Indeterminate) is based on interpretation of the four values, NIL, MITOGEN minus NIL (MITOGEN-NIL), TB1 minus NIL (TB1-NIL), and TB2 minus NIL (TB2-NIL). The NIL value represents nonspecific reactivity produced by the patient specimen. The MITOGEN-NIL value serves as the positive control for the patient specimen, demonstrating successful lymphocyte reactivity. The TB1-NIL tube specifically detects CD4+ lymphocyte reactivity, specifically stimulated by the TB1 antigens. The TB2-NIL tube detects both CD4+ and CD8+ lymphocyte reactivity, stimulated by the TB2 antigens. An overall Negative result does not completely rule out TB Infection. Performed By: #### L [id number] ####[facility] [address] [place] [address] Dameon Wilkins M.D. [id number] BASIC METABOLIC PANELon 05-0 Anion gap [Moles/Vol] 11 mmol/L Normal 10-20 [facility] Comment on above: Order Comment: [facility] has implemented the eGFR calculation approach that does not have a coefficient for race that conforms to the NKF-ASN Task Force Recommendations. Performed By: #### 4 6124 #### LAB [address] [address] Saeid Platt M.D. [id number] Calcium [Mass/Vol] 8.5 mg/dL Normal 8.4-10.2 [facility] Comment on above: Order Comment: [facility] has implemented the eGFR calculation approach that does not have a coefficient for race that conforms to the NKF-ASN Task Force Recommendations. Performed By: #### 4 6124 ####[facility] [address] [address] Saeid Platt M.D. [id number] Chloride [Moles/Vol] 97 mmol/L Low 98-108 [facility] Comment on above: Order Comment: [facility] has implemented the eGFR calculation approach that does not have a coefficient for race that conforms to the NKF-ASN Task Force Recommendations. Performed By: #### 4 6124 #### LAB [address] [place], [place] [address] Saeid Platt M.D. [id number] Creatinine [Mass/Vol] 0.98 mg/dL Normal 0.80-1.30 [facility] Comment on above: Order Comment: [facility] has implemented the eGFR calculation approach that does not have a coefficient for race that conforms to the NKF-ASN Task Force Recommendations. Performed By: #### 4 6124 #### LAB [address] [address] Saeid Platt M.D. [id number] EGFR 80 mL/min/1.73 m2 Normal >=60 [facility] Comment on above: Order Comment: [facility] has implemented the eGFR calculation approach that does not have a coefficient for race that conforms to the NKF-ASN Task Force Recommendations. Result Comment: Rod mated GFR was calculated using the 2020 CKD-EPI creatinine equation. Performed By: #### 4 6124 #### LAB [address] [id number] Saeid Platt M.D. [id number] Glucose [Mass/Vol] 171 mg/dL High 65-99 [facility] Comment on above: Order Comment: [facility] has implemented the eGFR calculation approach that does not have a coefficient for race that conforms to the NKF-ASN Task Force Recommendations. Performed By: #### 4 6124 ####[facility] [address] [place], [place] [address] Saeid Platt M.D. [id number] HCO3 (Bld) [Moles/Vol] 34 mmol/L High 21-32 [facility] Comment on above: Order Comment: [facility] has implemented the eGFR calculation approach that does not have a coefficient for race that conforms to the NKF-ASN Task Force Recommendations. Performed By: #### 4 6124 ####[facility] [address] [id number] Saeid Platt M.D. [id number] Potassium [Moles/Vol] 3.5 mmol/L Normal 3.5-5.1 [facility] Comment on above: Order Comment: [facility] has implemented the eGFR calculation approach that does not have a coefficient for race that conforms to the NKF-ASN Task Force Recommendations. Performed By: #### 4 6124 #### LAB [address] [address] Saeid Platt M.D. [id number] Sodium [Moles/Vol] 138 mmol/L Normal 135-145 [facility] Comment on above: Order Comment: [facility] has implemented the eGFR calculation approach that does not have a coefficient for race that conforms to the NKF-ASN Task Force Recommendations. Performed By: #### 4 6124 #### LAB [address] [address] Saeid Platt M.D. [id number] Urea nitrogen [Mass/Vol] 13 mg/dL Normal 8-25 [facility] Comment on above: Order Comment: [facility] has implemented the eGFR calculation approach that does not have a coefficient for race that conforms to the NKF-ASN Task Force Recommendations. Performed By: #### 4 6124 #### LAB [address] [address] Saeid Platt M.D. [id number] Urea nitrogen/Creatinine [Mass ratio] 13.3 mg/mg Normal 10.0-20.0 [facility] Comment on above: Order Comment: [facility] has implemented the eGFR calculation approach that does not have a coefficient for race that conforms to the NKF-ASN Task Force Recommendations. Performed By: #### 4 6124 #### LAB [address] [address] Saeid Platt M.D. [id number] Basic metabolic 2000 panelon 10-29-2023 Anion gap [Moles/Vol] 11 mmol/L 10 - 2 0 mmol/L [facility] Calcium [Mass/Vol] 8.5 mg/dL 8.4 - 10. 2 mg/dL [facility] Chloride [Moles/Vol] 97 mmol/L Low 98 - 10 8 mmol/L [facility] Creatinine [Mass/Vol] 0.98 mg/dL 0.80 - 1.30 mg/dL [facility] GFR/1.73 sq M.predicted CKD-EPI (S/P/Bld) [Vol rate/Area] 80 - PINF [facility] Glucose [Mass/Vol] 171 mg/dL High 65 - 99 mg/dL [facility] HCO3 [Moles/Vol] 34 mmol/L High 21 - 32 mmol/L [facility] Interpretation and review of laboratory results Abnormal [facility] Potassium [Moles/Vol] 3.5 mmol/L 3.5 - 5.1 mmol/L [facility] Sodium [Moles/Vol] 138 mmol/L 135 - 145 mmol/L [facility] Urea nitrogen [Mass/Vol] 13 mg/dL 8 - 25 mg/dL [facility] Urea nitrogen/Creatinine [Mass ratio] 13.3 mg/mg 10.0 - 20.0 [facility] CBCon 10-29-2023 AUTO NRBC 0.0 % Normal [facility] Comment on above: Performed By: #### 4 [id number] #### LAB [address] [address] Saeid Platt M.D. [id number] AUTO NRBC ABS COUNT 0.00 K/mcL Normal 0.00-0.00 [facility] Comment on above: Performed By: #### 4 [id number] #### LAB [address] [id number] Saeid Platt M.D. [id number] Erythrocyte distribution width (RBC) [Ratio] 28.8 % High 11.6-14.8 [facility] Comment on above: Performed By: #### 4 [id number] #### LAB [address] [address] Saeid Platt M.D. [id number] Hematocrit (Bld) [Volume fraction] 31.5 % Low 41.0-53.0 [facility] Comment on above: Performed By: #### 4 [id number] #### LAB [address] [address] Saeid Platt M.D. [id number] Hemoglobin (Bld) [Mass/Vol] 8.6 g/dL Low 13.5-17.5 [facility] Comment on above: Performed By: #### 4 [id number] #### LAB [address] [address] Saeid Platt M.D. [id number] MCH (RBC) [Entitic mass] 21.4 pg Low 26.0-34.0 [facility] Comment on above: Performed By: #### 4 [id number] #### LAB [address] [address] Saeid Platt M.D. [id number] MCV (RBC) [Entitic vol] 78.6 fL Low 80.0-100.0 [facility] Comment on above: Performed By: #### 4 [id number] #### LAB [address] [address] Saeid Platt M.D. [id number] MEAN CORPUSCULAR HEMOGLOBIN CONC 27.3 g/dL Low 31.0-37.0 [facility] Comment on above: Performed By: #### 4 [id number] #### LAB [address] [address] Saeid Platt M.D. [id number] Platelet mean volume (Bld) [Entitic vol] 8.5 fL Low 9.4-12.4 [facility] Comment on above: Performed By: #### 4 [id number] #### LAB [address] [address] Saeid Platt M.D. [id number] Platelets (Bld) [#/Vol] 300 10*3/uL Normal 150-400 [facility] Comment on above: Performed By: #### 4 [id number] #### LAB [address] [address] Saeid Platt M.D. [id number] RBC (Bld) [#/Vol] 4.01 10*6/uL Low 4.50-5.90 [facility] Comment on above: Performed By: #### 4 [id number] #### LAB [address] [address] Saeid Platt M.D. [id number] WBC (Bld) [#/Vol] 4.64 10*3/uL Normal 4.50-11.00 [facility] Comment on above: Performed By: #### 4 [id number] #### LAB [address] [address] Saeid Platt M.D. [id number] AUTO NRBC 0.0 % Normal [facility] Comment on above: Performed By: #### 4 [id number] #### LAB [address] [address] Saeid Platt M.D. [id number] AUTO NRBC ABS COUNT 0.00 K/mcL Normal 0.00-0.00 [facility] Comment on above: Performed By: #### 4 [id number] #### LAB [address] [address] Saeid Platt M.D. [id number] Erythrocyte distribution width (RBC) [Ratio] 29.2 % High 11.6-14.8 [facility] Comment on above: Performed By: #### 4 [id number] #### LAB [address] [address] Saeid Platt M.D. [id number] Hematocrit (Bld) [Volume fraction] 28.5 % Low 41.0-53.0 [facility] Comment on above: Performed By: #### 4 [id number] #### LAB [address] [address] Saeid Platt M.D. [id number] Hemoglobin (Bld) [Mass/Vol] 7.7 g/dL Low 13.5-17.5 [facility] Comment on above: Performed By: #### 4 [id number] #### LAB [address] [address] Saeid Platt M.D. [id number] MCH (RBC) [Entitic mass] 21.4 pg Low 26.0-34.0 [facility] Comment on above: Performed By: #### 4 [id number] #### LAB [address] [address] Saeid Platt M.D. [id number] MCV (RBC) [Entitic vol] 79.2 fL Low 80.0-100.0 [facility] Comment on above: Performed By: #### 4 [id number] #### LAB [address] [address] Saeid Platt M.D. [id number] MEAN CORPUSCULAR HEMOGLOBIN CONC 27.0 g/dL Low 31.0-37.0 [facility] Comment on above: Performed By: #### 4 5218 ####[facility] [address] [address] Saeid Platt M.D. [id number] Platelet mean volume (Bld) [Entitic vol] 9.1 fL Low 9.4-12.4 [facility] Comment on above: Performed By: #### 4 [id number] #### LAB [address] [address] Saeid Platt M.D. [id number] Platelets (Bld) [#/Vol] 315 10*3/uL Normal 150-400 [facility] Comment on above: Performed By: #### 4 [id number] #### LAB [address] [address] Saeid Platt M.D. [id number] RBC (Bld) [#/Vol] 3.60 10*6/uL Low 4.50-5.90 [facility] Comment on above: Performed By: #### 4 [id number] #### LAB [address] [address] Saeid Platt M.D. [id number] WBC (Bld) [#/Vol] 5.00 10*3/uL Normal 4.50-11.00 [facility] Comment on above: Performed By: #### 4 [id number] ####[facility] [address] [address] Saeid Platt M.D. [id number] CBC panel Auto (Bld)on 10-28 Erythrocyte distribution width (RBC) [Entitic vol] 28.8 % High 11.6 - 14.8 % [facility] Hematocrit (Bld) [Volume fraction] 31.5 % Low 41.0 - 53.0 % [facility] Hemoglobin (Bld) [Mass/Vol] 8.6 g/dL Low 13.5 - 17.5 g/dL [facility] Interpretation and review of laboratory results Abnormal [facility] MCH (RBC) [Entitic mass] 21.4 pg Low 26.0 - 34.0 pg [facility] MCHC (RBC) [Mass/Vol] 27.3 g/dL Low 31.0 - 37.0 g/dL [facility] MCV (RBC) [Entitic vol] 78.6 fL Low 80.0 - 100.0 fL [facility] Nucleated RBC (Bld) [#/Vol] 0.00 10*3/uL [facility] Nucleated RBC/100 WBC (Bld) [Ratio] 0.0 % [facility] Platelet mean volume (Bld) [Entitic vol] 8.5 fL Low 9.4 - 12.4 fL [facility] Platelets (Bld) [#/Vol] 300 10*3/uL [facility] RBC (Bld) [#/Vol] 4.01 10*6/uL Low [facility] WBC (Bld) [#/Vol] 4.64 10*3/uL [facility] Erythrocyte distribution width (RBC) [Entitic vol] 29.2 % High 11.6 - 14.8 % [facility] Hematocrit (Bld) [Volume fraction] 28.5 % Low 41.0 - 53.0 % [facility] Hemoglobin (Bld) [Mass/Vol] 7.7 g/dL Low 13.5 - 17.5 g/dL [facility] Interpretation and review of laboratory results Abnormal [facility] MCH (RBC) [Entitic mass] 21.4 pg Low 26.0 - 34.0 pg [facility] MCHC (RBC) [Mass/Vol] 27.0 g/dL Low 31.0 - 37.0 g/dL [facility] MCV (RBC) [Entitic vol] 79.2 fL Low 80.0 - 100.0 fL [facility] Nucleated RBC (Bld) [#/Vol] 0.00 10*3/uL [facility] Nucleated RBC/100 WBC (Bld) [Ratio] 0.0 % [facility] Platelet mean volume (Bld) [Entitic vol] 9.1 fL Low 9.4 - 12.4 fL [facility] Platelets (Bld) [#/Vol] 315 10*3/uL [facility] RBC (Bld) [#/Vol] 3.60 10*6/uL Low [facility] ealth WBC (Bld) [#/Vol] 5.00 10*3/uL [facility] CEAOrdered By: Brittany elizabeth on 10-29-2023 Carcinoembryonic Ag [Mass/Vol] 56.60 ng/mL High 0.00 - 2.50 ng/mL [facility] Interpretation and review of laboratory results Abnormal [facility] CEAon 10-29-2023 CEA 56.60 ng/mL High 0.00-2.50 [facility] Comment on above: Result Comment: Test performed using Luma MARIN Immunoassay system. Results determined by assays using different instrumentation may not be comparable. The reference range is for non-smokers. Some smokers may have elevated CEA, usually <5.00. Performed By: #### 4 5219 #### LAB [address] [place], [place] [address] Saeid Platt M.D. [id number] FERRITINon 10-29-2023 Ferritin [Mass/Vol] 517 ng/mL High 30-400 [facility] Comment on above: Performed By: #### 4 5614 #### LAB [address] [place], [place] [address] Saeid Platt M.D. [id number] Ferritinon 10-29-2023 Ferritin [Mass/Vol] 517 ng/mL High 30 - 400 ng/mL [facility] Glucose (Bld) [Mass/Vol]on 0 10-29-2023 Glucose [Mass/Vol] 214 mg/dL High 65 - 99 mg/dL [facility] Interpretation and review of laboratory results Abnormal [facility] Glucose [Mass/Vol] 174 mg/dL High 65 - 99 mg/dL [facility] Interpretation and review of laboratory results Abnormal [facility] IRON AND TIBCon 10-29-2023 Iron [Mass/Vol] 19 ug/dL Low 40-165 [facility] Comment on above: Performed By: #### 4 6910 #### LAB [address] [place], [place] [address] Saeid Platt M.D. [id number] IRON SATURATION 10 % Low 20-50 [facility] Comment on above: Performed By: #### 4 6910 ####[facility] [address] [place], [place] [address] Saeid Platt M.D. [id number] TIBC (CALCULATED) 186 mcg/dL Low 225-430 [facility] Comment on above: Performed By: #### 4 6910 ####[facility] [address] [place], [place] [address] Saeid Platt M.D. [id number] Iron and Iron binding capaci ty panelon 10-29-2023 Iron [Mass/Vol] 19 ug/dL Low [facility] Iron binding capacity [Mass/Vol] 186 Low [facility] Iron saturation [Mass fraction] 10 % Low 20 - 50 % [facility] No Panel Informationon 10-28 Interpretation and review of laboratory results Abnormal [facility] POC GL[facility]COSE [facility] Glucose [Mass/Vol] 214 mg/dL High 65-99 [facility] Glucose [Mass/Vol] 174 mg/dL High 65-99 [facility] BASIC METABOLIC PANELon 05-0 Anion gap [Moles/Vol] 12 mmol/L Normal 10-20 [facility] Comment on above: Order Comment: [facility] has implemented the eGFR calculation approach that does not have a coefficient for race that conforms to the NKF-ASN Task Force Recommendations. Performed By: #### 4 6124 ####[facility] [address] [place], [place] [address] Saeid Platt M.D. [id number] Calcium [Mass/Vol] 8.6 mg/dL Normal 8.4-10.2 [facility] Comment on above: Order Comment: [facility] has implemented the eGFR calculation approach that does not have a coefficient for race that conforms to the NKF-ASN Task Force Recommendations. Performed By: #### 4 6124 #### LAB [address] [place], [place] [address] Saeid Platt M.D. [id number] Chloride [Moles/Vol] 93 mmol/L Low 98-108 [facility] Comment on above: Order Comment: [facility] has implemented the eGFR calculation approach that does not have a coefficient for race that conforms to the NKF-ASN Task Force Recommendations. Performed By: #### 4 6124 #### LAB [address] [address] Saeid Platt M.D. [id number] Creatinine [Mass/Vol] 0.98 mg/dL Normal 0.80-1.30 [facility] Comment on above: Order Comment: [facility] has implemented the eGFR calculation approach that does not have a coefficient for race that conforms to the NKF-ASN Task Force Recommendations. Performed By: #### 4 6124 #### LAB [address] [address] Saeid Platt M.D. [id number] EGFR 80 mL/min/1.73 m2 Normal >=60 [facility] Comment on above: Order Comment: [facility] has implemented the eGFR calculation approach that does not have a coefficient for race that conforms to the NKF-ASN Task Force Recommendations. Result Comment: Rod mated GFR was calculated using the 2020 CKD-EPI creatinine equation. Performed By: #### 4 6124 #### LAB [address] [address] Saeid Platt M.D. [id number] Glucose [Mass/Vol] 169 mg/dL High 65-99 [facility] Comment on above: Order Comment: [facility] has implemented the eGFR calculation approach that does not have a coefficient for race that conforms to the NKF-ASN Task Force Recommendations. Performed By: #### 4 6124 #### LAB [address] [address] Saeid Platt M.D. [id number] HCO3 (Bld) [Moles/Vol] 34 mmol/L High 21-32 [facility] Comment on above: Order Comment: [facility] has implemented the eGFR calculation approach that does not have a coefficient for race that conforms to the NKF-ASN Task Force Recommendations. Performed By: #### 4 6124 #### LAB [address] [address] Saeid Platt M.D. [id number] Potassium [Moles/Vol] 3.9 mmol/L Normal 3.5-5.1 [facility] Comment on above: Order Comment: [facility] has implemented the eGFR calculation approach that does not have a coefficient for race that conforms to the NKF-ASN Task Force Recommendations. Performed By: #### 4 6124 #### LAB [address] [address] Saeid Platt M.D. [id number] Sodium [Moles/Vol] 135 mmol/L Normal 135-145 [facility] Comment on above: Order Comment: [facility] has implemented the eGFR calculation approach that does not have a coefficient for race that conforms to the NKF-ASN Task Force Recommendations. Performed By: #### 4 6124 #### LAB [address] [address] Saeid Platt M.D. [id number] Urea nitrogen [Mass/Vol] 14 mg/dL Normal 8-25 [facility] Comment on above: Order Comment: [facility] has implemented the eGFR calculation approach that does not have a coefficient for race that conforms to the NKF-ASN Task Force Recommendations. Performed By: #### 4 6124 #### LAB [address] [address] Saeid Platt M.D. [id number] Urea nitrogen/Creatinine [Mass ratio] 14.3 mg/mg Normal 10.0-20.0 [facility] Comment on above: Order Comment: [facility] has implemented the eGFR calculation approach that does not have a coefficient for race that conforms to the NKF-ASN Task Force Recommendations. Performed By: #### 4 6124 #### LAB [address] [address] Saeid Platt M.D. [id number] Basic metabolic 2000 panelon 10-28-2023 Anion gap [Moles/Vol] 12 mmol/L 10 - 2 0 mmol/L [facility] Calcium [Mass/Vol] 8.6 mg/dL 8.4 - 10. 2 mg/dL [facility] Chloride [Moles/Vol] 93 mmol/L Low 98 - 10 8 mmol/L [facility] Creatinine [Mass/Vol] 0.98 mg/dL 0.80 - 1.30 mg/dL [facility] GFR/1.73 sq M.predicted CKD-EPI (S/P/Bld) [Vol rate/Area] 80 - PINF [facility] Glucose [Mass/Vol] 169 mg/dL High 65 - 99 mg/dL [facility] HCO3 [Moles/Vol] 34 mmol/L High 21 - 32 mmol/L [facility] Interpretation and review of laboratory results Abnormal [facility] Potassium [Moles/Vol] 3.9 mmol/L 3.5 - 5.1 mmol/L [facility] Sodium [Moles/Vol] 135 mmol/L 135 - 145 mmol/L [facility] Urea nitrogen [Mass/Vol] 14 mg/dL 8 - 25 mg/dL [facility] Urea nitrogen/Creatinine [Mass ratio] 14.3 mg/mg 10.0 - 20.0 [facility] CBCon 10-28-2023 AUTO NRBC 0.0 % Normal [facility] Comment on above: Performed By: #### 4 5218 ####[facility] [address] [address] Saeid Platt M.D. [id number] AUTO NRBC ABS COUNT 0.00 K/mcL Normal 0.00-0.00 [facility] Comment on above: Performed By: #### 4 5218 ####[facility] [address] [id number] Saeid Platt M.D. [id number] Erythrocyte distribution width (RBC) [Ratio] 29.3 % High 11.6-14.8 [facility] Comment on above: Performed By: #### 4 5218 #### LAB [address] [address] Saeid Platt M.D. [id number] Hematocrit (Bld) [Volume fraction] 28.5 % Low 41.0-53.0 [facility] Comment on above: Performed By: #### 4 [id number] #### LAB [address] [address] Saeid Platt M.D. [id number] Hemoglobin (Bld) [Mass/Vol] 7.7 g/dL Low 13.5-17.5 [facility] Comment on above: Performed By: #### 4 [id number] #### LAB [address] [address] Saeid Platt M.D. [id number] MCH (RBC) [Entitic mass] 21.3 pg Low 26.0-34.0 [facility] Comment on above: Performed By: #### 4 5218 ####[facility] [address] [address] Saeid Platt M.D. [id number] MCV (RBC) [Entitic vol] 78.9 fL Low 80.0-100.0 [facility] Comment on above: Performed By: #### 4 5218 ####[facility] [address] [address] Saeid Platt M.D. [id number] MEAN CORPUSCULAR HEMOGLOBIN CONC 27.0 g/dL Low 31.0-37.0 [facility] Comment on above: Performed By: #### 4 5218 #### LAB [address] [address] Saeid Platt M.D. [id number] Platelet mean volume (Bld) [Entitic vol] 9.0 fL Low 9.4-12.4 [facility] Comment on above: Performed By: #### 4 5218 #### LAB [address] [address] Saeid Platt M.D. [id number] Platelets (Bld) [#/Vol] 293 10*3/uL Normal 150-400 [facility] Comment on above: Performed By: #### 4 5218 #### LAB [address] [address] Saeid Platt M.D. [id number] RBC (Bld) [#/Vol] 3.61 10*6/uL Low 4.50-5.90 [facility] Comment on above: Performed By: #### 4 5218 #### LAB [address] [place], [place] [address] Saeid Platt M.D. [id number] WBC (Bld) [#/Vol] 5.21 10*3/uL Normal 4.50-11.00 [facility] Comment on above: Performed By: #### 4 [id number] #### LAB [address] [place], [place] [address] Saeid Platt M.D. [id number] CBC panel Auto (Bld)on 10-27 Erythrocyte distribution width (RBC) [Entitic vol] 29.3 % High 11.6 - 14.8 % [facility] Hematocrit (Bld) [Volume fraction] 28.5 % Low 41.0 - 53.0 % [facility] Hemoglobin (Bld) [Mass/Vol] 7.7 g/dL Low 13.5 - 17.5 g/dL [facility] Interpretation and review of laboratory results Abnormal [facility] MCH (RBC) [Entitic mass] 21.3 pg Low 26.0 - 34.0 pg [facility] MCHC (RBC) [Mass/Vol] 27.0 g/dL Low 31.0 - 37.0 g/dL [facility] MCV (RBC) [Entitic vol] 78.9 fL Low 80.0 - 100.0 fL [facility] Nucleated RBC (Bld) [#/Vol] 0.00 10*3/uL [facility] Nucleated RBC/100 WBC (Bld) [Ratio] 0.0 % [facility] Platelet mean volume (Bld) [Entitic vol] 9.0 fL Low 9.4 - 12.4 fL [facility] Platelets (Bld) [#/Vol] 293 10*3/uL [facility] RBC (Bld) [#/Vol] 3.61 10*6/uL Low [facility] WBC (Bld) [#/Vol] 5.21 10*3/uL [facility] Glucose (Bld) [Mass/Vol]on 0 10-28-2023 Glucose [Mass/Vol] 152 mg/dL High 65 - 99 mg/dL [facility] Interpretation and review of laboratory results Abnormal [facility] Glucose [Mass/Vol] 183 mg/dL High 65 - 99 mg/dL [facility] Interpretation and review of laboratory results Abnormal [facility] Glucose [Mass/Vol] 267 mg/dL High 65 - 99 mg/dL [facility] Interpretation and review of laboratory results Abnormal [facility] Glucose [Mass/Vol] 175 mg/dL High 65 - 99 mg/dL [facility] Interpretation and review of laboratory results Abnormal [facility] Glucose [Mass/Vol] 152 mg/dL High 65-99 [facility] Glucose [Mass/Vol] 183 mg/dL High 65-99 [facility] Glucose [Mass/Vol] 267 mg/dL High 65-99 [facility] Glucose [Mass/Vol] 175 mg/dL High 65-99 [facility] BASIC METABOLIC PANELon 09-29 Anion gap [Moles/Vol] 13 mmol/L Normal 10-20 [facility] Comment on above: Order Comment: [facility] has implemented the eGFR calculation approach that does not have a coefficient for race that conforms to the NKF-ASN Task Force Recommendations. Performed By: #### [id number] #### LAB [address] [place], [place] [address] Saeid Platt M.D. [id number] Calcium [Mass/Vol] 8.8 mg/dL Normal 8.4-10.2 [facility] Comment on above: Order Comment: [facility] has implemented the eGFR calculation approach that does not have a coefficient for race that conforms to the NKF-ASN Task Force Recommendations. Performed By: #### 4 [id number] #### LAB [address] [place], [place] [address] Saeid Platt M.D. [id number] Chloride [Moles/Vol] 94 mmol/L Low 98-108 [facility] Comment on above: Order Comment: [facility] has implemented the eGFR calculation approach that does not have a coefficient for race that conforms to the NKF-ASN Task Force Recommendations. Performed By: #### 4 [id number] #### LAB [address] [place], [place] [address] Saeid Platt M.D. [id number] Creatinine [Mass/Vol] 0.89 mg/dL Normal 0.80-1.30 [facility] Comment on above: Order Comment: [facility] has implemented the eGFR calculation approach that does not have a coefficient for race that conforms to the NKF-ASN Task Force Recommendations. Performed By: #### 4 [id number] #### LAB [address] [place] [address] Saeid Platt M.D. [id number] EGFR 89 mL/min/1.73 m2 Normal >=60 [facility] Comment on above: Order Comment: [facility] has implemented the eGFR calculation approach that does not have a coefficient for race that conforms to the NKF-ASN Task Force Recommendations. Result Comment: Rod mated GFR was calculated using the 2020 CKD-EPI creatinine equation. Performed By: #### [id number] #### LAB [address] [place] [address] Saeid Platt M.D. [id number] Glucose [Mass/Vol] 158 mg/dL High 65-99 [facility] Comment on above: Order Comment: [facility] has implemented the eGFR calculation approach that does not have a coefficient for race that conforms to the NKF-ASN Task Force Recommendations. Performed By: #### 4 [id number] #### LAB [address] [place] [address] Saeid Platt M.D. [id number] HCO3 (Bld) [Moles/Vol] 35 mmol/L High 21-32 [facility] Comment on above: Order Comment: [facility] has implemented the eGFR calculation approach that does not have a coefficient for race that conforms to the NKF-ASN Task Force Recommendations. Performed By: #### 4 [id number] #### LAB [address] [place] [address] Saeid Platt M.D. [id number] Potassium [Moles/Vol] 4.1 mmol/L Normal 3.5-5.1 [facility] Comment on above: Order Comment: [facility] has implemented the eGFR calculation approach that does not have a coefficient for race that conforms to the NKF-ASN Task Force Recommendations. Performed By: #### 4 [id number] #### LAB [address] [place], [place] [address] Saeid Platt M.D. [id number] Sodium [Moles/Vol] 138 mmol/L Normal 135-145 [facility] Comment on above: Order Comment: [facility] has implemented the eGFR calculation approach that does not have a coefficient for race that conforms to the NKF-ASN Task Force Recommendations. Performed By: #### 4 [id number] #### LAB [address] [place] [id number] Saeid Platt M.D. [id number] Urea nitrogen [Mass/Vol] 14 mg/dL Normal 8-25 [facility] Comment on above: Order Comment: [facility] has implemented the eGFR calculation approach that does not have a coefficient for race that conforms to the NKF-ASN Task Force Recommendations. Performed By: #### 4 [id number] #### LAB [address] [place] [address] Saeid Platt M.D. [id number] Urea nitrogen/Creatinine [Mass ratio] 15.7 mg/mg Normal 10.0-20.0 [facility] Comment on above: Order Comment: [facility] has implemented the eGFR calculation approach that does not have a coefficient for race that conforms to the NKF-ASN Task Force Recommendations. Performed By: #### 4 [id number] #### LAB [address] [place], [place] [address] Saeid Platt M.D. [id number] Basic metabolic 2000 panelon 10-27-2023 Anion gap [Moles/Vol] 13 mmol/L 10 - 2 0 mmol/L [facility] Calcium [Mass/Vol] 8.8 mg/dL 8.4 - 10. 2 mg/dL [facility] Chloride [Moles/Vol] 94 mmol/L Low 98 - 10 8 mmol/L [facility] Creatinine [Mass/Vol] 0.89 mg/dL 0.80 - 1.30 mg/dL [facility] GFR/1.73 sq M.predicted CKD-EPI (S/P/Bld) [Vol rate/Area] 89 - PINF [facility] Glucose [Mass/Vol] 158 mg/dL High 65 - 99 mg/dL [facility] HCO3 [Moles/Vol] 35 mmol/L High 21 - 32 mmol/L [facility] Interpretation and review of laboratory results Abnormal [facility] Potassium [Moles/Vol] 4.1 mmol/L 3.5 - 5.1 mmol/L [facility] Sodium [Moles/Vol] 138 mmol/L 135 - 145 mmol/L [facility] Urea nitrogen [Mass/Vol] 14 mg/dL 8 - 25 mg/dL [facility] Urea nitrogen/Creatinine [Mass ratio] 15.7 mg/mg 10.0 - 20.0 [facility] CBCon 10-27-2023 AUTO NRBC 0.0 % Normal [facility] Comment on above: Performed By: #### [id number] #### LAB [address] [place] [address] Saeid Platt M.D. [id number] AUTO NRBC ABS COUNT 0.00 K/mcL Normal 0.00-0.00 [facility] Comment on above: Performed By: #### 4 [id number] #### LAB [address] [place] [address] Saeid Platt M.D. [id number] Erythrocyte distribution width (RBC) [Ratio] 29.8 % High 11.6-14.8 [facility] Comment on above: Performed By: #### 4 [id number] #### LAB [address] [place] [address] Saeid Platt M.D. [id number] Hematocrit (Bld) [Volume fraction] 30.7 % Low 41.0-53.0 [facility] Comment on above: Performed By: #### 4 [id number] #### LAB [address] [place] [address] Saeid Platt M.D. [id number] Hemoglobin (Bld) [Mass/Vol] 8.3 g/dL Low 13.5-17.5 [facility] Comment on above: Performed By: #### 4 [id number] #### LAB [address] [place] [address] Saeid Platt M.D. [id number] MCH (RBC) [Entitic mass] 21.3 pg Low 26.0-34.0 [facility] Comment on above: Performed By: #### 4 [id number] #### LAB [address] [place] [address] Saeid Platt M.D. [id number] MCV (RBC) [Entitic vol] 78.9 fL Low 80.0-100.0 [facility] Comment on above: Performed By: #### 4 [id number] #### LAB [address] [place] [address] Saeid Platt M.D. [id number] MEAN CORPUSCULAR HEMOGLOBIN CONC 27.0 g/dL Low 31.0-37.0 [facility] Comment on above: Performed By: #### 4 [id number] #### LAB [address] [place] [address] Saeid Platt M.D. [id number] Platelet mean volume (Bld) [Entitic vol] 9.2 fL Low 9.4-12.4 [facility] Comment on above: Performed By: #### 4 [id number] #### LAB [address] [place] [address] Saeid Platt M.D. [id number] Platelets (Bld) [#/Vol] 305 10*3/uL Normal 150-400 [facility] Comment on above: Performed By: #### 4 [id number] #### LAB [address] [place] [address] Saeid Platt M.D. [id number] RBC (Bld) [#/Vol] 3.89 10*6/uL Low 4.50-5.90 [facility] Comment on above: Performed By: #### 4 [id number] ####[facility] [address] [place] [address] Saeid Platt M.D. [id number] WBC (Bld) [#/Vol] 8.63 10*3/uL Normal 4.50-11.00 [facility] Comment on above: Performed By: #### 4 [id number] #### LAB [address] [facility] [place] [address] Saeid Platt M.D. [id number] CBC panel Auto (Bld)on 10-26 Erythrocyte distribution width (RBC) [Entitic vol] 29.8 % High 11.6 - 14.8 % [facility] Hematocrit (Bld) [Volume fraction] 30.7 % Low 41.0 - 53.0 % [facility] Hemoglobin (Bld) [Mass/Vol] 8.3 g/dL Low 13.5 - 17.5 g/dL [facility] Interpretation and review of laboratory results Abnormal [facility] MCH (RBC) [Entitic mass] 21.3 pg Low 26.0 - 34.0 pg [facility] MCHC (RBC) [Mass/Vol] 27.0 g/dL Low 31.0 - 37.0 g/dL [facility] MCV (RBC) [Entitic vol] 78.9 fL Low 80.0 - 100.0 fL [facility] Nucleated RBC (Bld) [#/Vol] 0.00 10*3/uL [facility] Nucleated RBC/100 WBC (Bld) [Ratio] 0.0 % [facility] Platelet mean volume (Bld) [Entitic vol] 9.2 fL Low 9.4 - 12.4 fL [facility] Platelets (Bld) [#/Vol] 305 10*3/uL [facility] RBC (Bld) [#/Vol] 3.89 10*6/uL Low [facility] WBC (Bld) [#/Vol] 8.63 10*3/uL [facility] Glucose (Bld) [Mass/Vol]on 0 10-27-2023 Glucose [Mass/Vol] 193 mg/dL High 65 - 99 mg/dL [facility] Interpretation and review of laboratory results Abnormal [facility] Glucose [Mass/Vol] 280 mg/dL High 65 - 99 mg/dL [facility] Interpretation and review of laboratory results Abnormal [facility] Glucose [Mass/Vol] 147 mg/dL High 65 - 99 mg/dL [facility] Interpretation and review of laboratory results Abnormal [facility] Glucose [Mass/Vol] 161 mg/dL High 65 - 99 mg/dL [facility] Interpretation and review of laboratory results Abnormal [facility] POC GLUCOSE - [place] 024 Glucose [Mass/Vol] 193 mg/dL High 65-99 [facility] Glucose [Mass/Vol] 280 mg/dL High 65-99 [facility] Glucose [Mass/Vol] 147 mg/dL High 65-99 [facility] Glucose [Mass/Vol] 161 mg/dL High 65-99 [facility] Basic metabolic 2000 panelon 10-26-2023 Anion gap [Moles/Vol] 10 mmol/L 10 - 2 0 mmol/L [facility] Calcium [Mass/Vol] 8.8 mg/dL 8.4 - 10. 2 mg/dL [facility] Chloride [Moles/Vol] 94 mmol/L Low 98 - 10 8 mmol/L [facility] Creatinine [Mass/Vol] 0.84 mg/dL 0.80 - 1.30 mg/dL [facility] GFR/1.73 sq M.predicted CKD-EPI (S/P/Bld) [Vol rate/Area] 90 - PINF [facility] Glucose [Mass/Vol] 176 mg/dL High 65 - 99 mg/dL [facility] HCO3 [Moles/Vol] 37 mmol/L High 21 - 32 mmol/L [facility] Interpretation and review of laboratory results Abnormal [facility] Potassium [Moles/Vol] 4.0 mmol/L 3.5 - 5.1 mmol/L [facility] Sodium [Moles/Vol] 137 mmol/L 135 - 145 mmol/L [facility] Urea nitrogen [Mass/Vol] 10 mg/dL 8 - 25 mg/dL [facility] Urea nitrogen/Creatinine [Mass ratio] 11.9 mg/mg 10.0 - 20.0 [facility] CBC panel Auto (Bld)on 10-25 Erythrocyte distribution width (RBC) [Entitic vol] 29.2 % High 11.6 - 14.8 % [facility] Hematocrit (Bld) [Volume fraction] 30.5 % Low 41.0 - 53.0 % [facility] Hemoglobin (Bld) [Mass/Vol] 8.1 g/dL Low 13.5 - 17.5 g/dL [facility] Interpretation and review of laboratory results Abnormal [facility] MCH (RBC) [Entitic mass] 21.0 pg Low 26.0 - 34.0 pg [facility] MCHC (RBC) [Mass/Vol] 26.6 g/dL Low 31.0 - 37.0 g/dL [facility] MCV (RBC) [Entitic vol] 79.2 fL Low 80.0 - 100.0 fL [facility] Nucleated RBC (Bld) [#/Vol] 0.00 10*3/uL [facility] Nucleated RBC/100 WBC (Bld) [Ratio] 0.0 % [facility] Platelet mean volume (Bld) [Entitic vol] 9.3 fL Low 9.4 - 12.4 fL [facility] Platelets (Bld) [#/Vol] 285 10*3/uL [facility] RBC (Bld) [#/Vol] 3.85 10*6/uL Low [facility] WBC (Bld) [#/Vol] 5.81 10*3/uL [facility] eah [facility] Glucose (Bld) [Mass/Vol]on 0 10-26-2023 Glucose [Mass/Vol] 124 mg/dL High 65 - 99 mg/dL [facility] Interpretation and review of laboratory results Abnormal [facility] Glucose [Mass/Vol] 168 mg/dL High 65 - 99 mg/dL [facility] Interpretation and review of laboratory results Abnormal [facility] Glucose [Mass/Vol] 266 mg/dL High 65 - 99 mg/dL [facility] Interpretation and review of laboratory results Abnormal [facility] Glucose [Mass/Vol] 168 mg/dL High 65 - 99 mg/dL [facility] Interpretation and review of laboratory results Abnormal [facility] OCCULT BLOOD STOOL IMMUNOASS AY ([facility] ONLY)on 10-26-2023 OCCULT BLOOD STOOL IMMUNOASSAY ([facility] ONLY) Positive Abnormal Negative for Occult Blood [facility] Comment on above: Performed By: #### [id number] #### LAB [address] [place] [address] Saeid Platt M.D. [id number] Occult Blood Stool Immunoass ay ([facility] Only)Ordered By: Anastasia Osorio on 10-26-2023 Hemoglobin.gastrointe stinal Ql (Stl) Positive Abnormal Negative for Occult Blood [facility] Interpretation and review of laboratory results Abnormal [facility] POC GLUCOSE - [facility] Glucose [Mass/Vol] 124 mg/dL High 65-99 [facility] Glucose [Mass/Vol] 168 mg/dL High 65-99 [facility] Glucose [Mass/Vol] 266 mg/dL High 65-99 [facility] Tissue ExamOrdered By: Kiran Lopez on 10-26-2023 Annotation comment [Interpretation] Narrative j5afaTNbJJAnjFLwYRPgHHetfq XkLIUpvCPkS0SzyymdYBipCO0o AZ1jaBcbpISbzAJvVFBqNwChd6 lec670zCLkm6teIJVXebzuwIc8 fVerI42bj2X5SsbhR63lpUUaQQ N3TYEyQZZhxFIcSUXpJYZ5JTDs eMCjC6ahOWVdPT6icnobDDvpZH soZAXjgNV2QNZioLOaN0TkBVAj AVbaBGHdhft0NdJjKy2zlPIamF cyMFxwYXJkXHBsYWluXGZzMjAg RB8avQ6mxMscoH1bgDNlgLXhvO OxzQGcmsXyGq0fXL4pa34yrNYh FLRjqHMdzwZbqy33HEpadyHrKZ oLHMcmGCWKBuntYNDVLoxpWS3C WkyeJFSddhXqon2pZLDphPDpoO FnZSBhbmFseXNpcywgYWxsIHNo b4hvjD61SAG3IFQdl4RnaU4zQA sdfcYqv6rfogEfbeDcIGEjpB0u dIUtqdOgkEFqQgZoHTgtx3Pjxj HyjFw8rmAeryVeL56np2ispXGk cXU8xJUgFTDceZiwcd6yROEubI wgxPAyt4DxEtwsJQZkWH2gbWnt LJJaRIELDO3mhAClJAIbadARdJ kfG94fdYTnhPMix3nyxvMzeKFi o7SfiJH5XHOaADDnbMc6gOZ0Ad gsVQAkdDNxAKCtYGYXut6uZOAn mF3xWDbjI63uuW6mIG10AP6qIB wnoOLwm1xsd7RsV9csjJjyvAD2 IPZoWT1ejvYnpo5soUV9LIn1Mi XjUWw3SOHlq77lr2AkWPJluITo ZXRlZCBhdCBPaGlvSGVhbHRoIF fzgfHdv7mpMP3ztqWcsWHvEOUQ v0ZjiGCcnPjoMoV8IDiwLYBeba BnPKN5VR25HNzmKKHzj8AxPDnk OJZRCUS3JMfuIt5sGCcxCKSwF7 BUIGNvZGVzOlxwYXJccGFyIDg4 MzYxIHggNFxwYXJccGFyfQ== [employer] Work Phone: Case Report [employer] Work Phone: Clinical information d0fsmKUiXXUziPCgGEA wNVxhbn PjQRMngHAsX9DofsxvRVwbTU7q QZ7upJhptCErmYDpEDEjHwUsk8 iue772bSMfw9igTCXZxsdjfTx4 eMzqW78se6P6LfkwA7slGPIkKM vfCJBlLJxjcWWaEDv9XMSpaIAl wlErNkFnRDTboLWpbFA5NCIwAK 6prqgzDFweGSdhNVWbmrT4KIRl qAHeG3KfAUOzUD6djrfyFQC3OQ iiFQMrPJK1QlOiYBXbk6Feocb4 MjBccGFyZFxwbGFpblxmczIwXG ZyLPTGGUQuxYUhRCJyJJT7z3Mz E6UfXSEzc9rebrXlZQ2jMBKqG1 YwICBccGFyfQ== [employer] Work Phone: Pathology report final diagnosis Narrative o2avpNQwNLOfwTBcCKNoRFpacs KqZJApbBBsN2LrijjpXTznYQ7k SW8taRwkjTVooRTyMKCbSeAtz1 qjh348zPJzp8pxIRTHklovpXb0 aYgcL12ci0I6CojoH0ocGHSqSJ kfC7KnPG4dKDsiNoo3QZRsDkll iiIoYKyvahLgdlEbKut0WKL8qQ syPQFkzqgeJpC3YZhmSVJipeeu QWc2HXtzOAYtbCS7WBLwqSOoA1 JsNWOhBK6wrvk1DPU4FRkxRFYq QbD4HYOuhRRvDBVdoSoeTXywq0 16SEQ4FqDeLRTotcSvqZeixW7h GrNqHCszTVSjtIAvd6PtWUJiQ1 gnTOReDYArnEImKThbj5Tsv4hd dHJwYWRkZnQzXHRycGFkZGZsM1 n7ztTwCBNdFVI9RSFmzGKsLGMa I4w6ijTxZKMyGVL3PUPlrOQbUL JfD4peiVUltHL7XUtrhRAcCFT3 UOQvCBDtw31xOERoElRijhdgAs Gwyf4evaGvN0jlrcHarywndgJq qa5mEObvaGIcKBAsPAAtBLVhu7 0bAZMwtuBowQDqaKoytOH4h3pa XWDmD8gfmXkNbKK2hHNjZrP9RW WrvFn3RHA5VuSzgGTmXKkaxsGd yBibT5saDKBYPR9ZUxZzACEWLt 2SAIEJMW8YFOShJ8RyhIzbhjKx cOsmx5mozUAeQZvqYOmlGHYngR Kxj3YhpQJbkXDxTBkqgShfT4bz nUxHPN48PBeouMBoLLPoFcNbLP AoaBGgPWPzI3d5foArGRMoAZL7 GQIzoAGyJICaN2t6tjSrYSAvHB P0HBPonABrKLVeF1nayJLkJDK9 SCVnUPDgWANbEHL6HFYfL0yabr TkkLviiyOeh5lfekZbjiBaHWTi YnJkcnJcYnJkcnNcYnJkcncxMF xjbGJyZHJiXGJyZHJzXGJyZHJ3 AGOmL2q8IFT8UEt1FSMlJoIgB6 ucnSkkOPFdy2izDASzGIB9FKdp PFxhcFKvTTBfB5vczxVdoEpovt Jqf7gpboUrasRfGKAyFbYrzyrk YnJkcnNcYnJkcncxMFxjbGJyZH LxOKYiCAZaMOYjNXE4IWOzY3ji guYnOjbzboNbm8hoprLizcJkAA YyviAgxUHweKouvGQ3e3rvASTl X3erxHhIhWE5zVU4WReuOKhygU BlRfUzD3wtaeZiyPjyvxJdf2pv cmRydzEwXGNsYnJkcmxcYnJkcn NcYnJkcncxMFxjbGJyZHJyXGJy VUZpKVMuHWI6GUDnB6vpznRjXr nbeqYzz7dumeHwveOvXFOangHm qXCjwHgeuDW7y8xuTRKuG2cqjI pQmOH7fEX9ZGHoJ7VauSmiJZnc FBhwWDSgODxhsNIiNQHwr6MlKY UiHFgoQ1AacUivNDMgCTmfnBFb XGNlbGxccGFyZFxpbnRibFxwcm 07CGP4d6twrVVyCHbdFlhfwYCc etH2VQmUAOTIUQfAUdOtYJ4vRF ePO0JCXHtMJxw9FOGfHVdjrLP0 s7nwjRVhc1h8WCfxZSS9mPVkE8 p5KVnkjBljk5ryB1SddNj1HCNb ZXibi6jwIKOlSOumr7OcGVmLQZ JVKF3LQO5xjUA1WCnMLKWLJDd9 QZQvMUlcoDO9o9lztNCod5k8LM hjTZU4yDtifFJlfaxtylUlUWDj iOvguM44Zoiiiq74WBDcu3rmRP UpfUOYzJU1yC3iktQuySa6alUn ZGRmdDNcdHJwYWRkZmwzXHRycG FkZGwxMDVcdHJwYWRkZnIzXHRy cGFkZHIxMDVcdHJwYWRkZmIzXG NsYnJkcnRcYnJkcnNcYnJkcncx MFxjbGJyZHJsXGJyZHJzXGJyZH N7ZZFpS8agqlIrynhhtkYwp7gt cmRydzEwXGNsYnJkcmJcYnJkcn NcYnJkcncxMFxjbHZlcnRhbHRc F4gvsSZNgOF4xFOwR3e1A0mxoR i4KBw6WOHtgUt7VUJ8PBbzuDLe VVJ2ZSTqADAuQWRlTXS6SUGiE6 opdwVlbRdctyLsb8vtixUstdYg XGNsYnJkcnJcYnJkcnNcYnJkcn cxMFxjbGJyZHJiXGJyZHJzXGJy ODS2ZMWvC9y6TJS5TFu0NVKrNf HqL8jyoDaoBDOvv1xxAEEeHeNz ZZJxaKs4AMDeQMxoaNWeULV3HS LdHUXgUYUeICH6BDYkF8wvlhBp gPilmdSqs6dyitZxugInURJpIe JkcnJcYnJkcnNcYnJkcncxMFxj sHLjHLEyRUOqSBKxNZIpUGG8DP FlF5q9ZUM1TCv4ZABoBeDmH5cn wOvaGAFgt5hcRILgTaFxAYubHI nbbGNlPcU1CZDtjqNqlB88Ysos RRTybh9aB99mwLLaJNCvqJVjiS lvbiBvZiBtZXNvcmVjdHVtIChm g4EameFjlZFeAIMfkvXhmrx0LP NlbGxccGFyZFxpbnRibFxjZWxs XYUzhcJzyQ31ZisdlJSvtLQvyN akQxjrzQY7IPvfJsafnV4fqFQK QZYTDwxMBgrtcbArMC5PSQHRDv UWVI00HywhBkS3KxlnsJxrMuhy vwOetGWbXaErkJ8Zb1EtAIBbdG zxGZFcKXckKipqfTZ8UVnlUthr yY6siSLNZWXCZxbWHmgeyaWkEA 1OZIVNZX6UnQI1GfHgrOM8Lf16 XCGcOPSlbEAiCTtdX452IDPcYK lqRQQaZaEqE9PisBuczfVgnFjq m7xiwUPnd6IgYJUgQ7vmVMFhKC OhqTEdHZYpjCQeACB6A2m7deQm QFGykWIesJBhJDMluBByGVt2pb BhZGRmcjNcdHJwYWRkcjEwNVx0 iyGsNJAhSqZiM7cfltRyjCrhxr Qwj9axwdUzxnOqBWHpWbIkpivf YnJkcnNcYnJkcncxMFxjbGJyZH XqHILfNISeFFCkJVL5ATKpM0kv tbQvHjxgqhJgt3hwkqPgqySnAG CoheSmoOSxsDoepHD4c2mpEFKl A2rhlTnWfSE5lWLbOAZtN3ZdwX j5KTs2LHNtSaArsnPmClCiorUv YnJkcncxMFxjbGJyZHJsXGJyZH WwLEPmYRJ3BIUiD8mixzKghdbb rdVpe6jhirKoiqZmANIpRmVjqj JcYnJkcnNcYnJkcncxMFxjbHZl ocVkxREmR5zlnWEDfAO6fTCbC7 o3H3gywJajXKZiV0TkxEe2GeY3 XGNsYnJkcnRcYnJkcnNcYnJkcn cxMFxjbGJyZHJsXGJyZHJzXGJy GMU8UVObY6fprgKjnpszyfZdm7 xicmRydzEwXGNsYnJkcmJcYnJk cnNcYnJkcncxMFxjbHZlcnRhbH YgX3pmqCBPvNJ4mADtM7u9R6er bBd9WNIsUVYfcLk1TQP1SbDcoN NwQKpvzcJkbMZGhI7dwnBqdKRy ZlgaLFieFDKmhfPeaO56LeanO8 PloSjrIBRbNMwdxQObOILfa2Hj L4S7NMXsJWnng7hlAJVvZCuvh7 PcQYySCWDWNC6XFD5xsTZ3MSzJ MYTGP1nYjUN4PbV9pWJ6R159XH ByCVLfbDNkTHhvL888V8FgdJ84 MRQbQDvep8xgTUNuWKkjo4CqPM cTMKXLCR8RJW1jxDF7ULmYIFTW NQfhQMRzESsnrSW3g2vqeOPam2 e5VUtcWIK8mJflmKSsrgskjvAd LNLoyAzzgF10Znxmix64QOJid9 fqURLaxAJGsCB5rQ4sauMjlLi8 cnBhZGRmdDNcdHJwYWRkZmwzXH RycGFkZGwxMDVcdHJwYWRkZnIz XHRycGFkZHIxMDVcdHJwYWRkZm IzXGNsYnJkcnRcYnJkcnNcYnJk cncxMFxjbGJyZHJsXGJyZHJzXG XjVAA5JRNsJ9cpmePliebqpyMv s4gnibWgfaXfHKRgXnPfxmZsVk JkcnNcYnJkcncxMFxjbHZlcnRh tKPwL2tmzLDGgOF3dDTtH1y6O3 wscNc5MRj5TAOwtUu3TCG9FEdt wDJrRSD5YJVaCVEcXMYyUYD7TK JkH4axcaTqbWbcwpOdb8izncYe dzEwXGNsYnJkcnJcYnJkcnNcYn JkcncxMFxjbGJyZHJiXGJyZHJz WFNtCPV8ZKXpU3g9ESE5TJq2TP NlUhMvC6yliVqgPDDzl6hxCDQg WfMwQJDpgFu8KAMlDGsepNXsGB K2DCRwDHMpOCQwKVQ0SWWjB5vx xoIvmKhykeMtk4vejiWjybVuUO NsYnJkcnJcYnJkcnNcYnJkcncx MFxjbGJyZHJiXGJyZHJzXGJyZH E6MEPtB3s5PXK1EGq6POMoDpIz J3sngUhwNPKiy1dpEAPbMqVxZP gtWTgvaILmHqU4EIEupcCxkA07 XzuvNIajdV7cg8bjVzM0wDWqOl hpNNwkXPOoqwDtyY45NqquJ6Yx sQbgNEKtNNurvMJhUPHyp7LkN9 P7PKUpQMmcp5ppCXOkZCbqb0Ve WKiHNTXJCY1TOV1jtDP1TDsSPI GZJ0eBaMOvCwJ3tYB9SI68KDLx PWEugQAwWEuiR176OAWapv8tMH EhdZ6vnQA9MBJrPIthz3ptOYEg ALaln6DqJLsEXPWSDM6VYQ2rmN R8IDuUZMNHENq3QSPzG7e5pOA2 k3zrzNAhm2g8KAunTAJ2gBegvN GufcdobjYiKUHmiYkcwN08Owoc tz80SADzl3msZYAnaHZAcYW7wG 4zhbPhfSb8pdEmPCQzmQChrNKr YWRkZmwzXHRycGFkZGwxMDVcdH JwYWRkZnIzXHRycGFkZHIxMDVc dHJwYWRkZmIzXGNsYnJkcnRcYn JkcnNcYnJkcncxMFxjbGJyZHJs DJTdXVEwZGXoYEP3VPNrL1bnrr RqhzpsqzTgl3ywhlYenvKdCWGz YnJkcmJcYnJkcnNcYnJkcncxMF oodZKxbxMgtNDwN4bgvXXLcYI7 xPXfY3d2Y5cfpZh1FHp3QLOvkL a2BFH0BBzvoZBfBNO0DQWwFSRv HAWiPIV0XUPpV2zqyhYlhEuxlg Rth5hbmqUkgtXfEOGaVxJprfAs YnJkcnNcYnJkcncxMFxjbGJyZH MfLRLjDKAePAXlSUG2GRWqG0j8 PXT3KLs5LXHvGmIaQ0cncUzdJU Zsl9ihPXBiVyOoMSHjyYe1ZUZp RUatnBQxFVR5IQInKTAmIIHuQJ S6FIJcT4yrgdPglMlfesJvj3au cmRydzEwXGNsYnJkcnJcYnJkcn NcYnJkcncxMFxjbGJyZHJiXGJy QGYbKYOhYLI7LUAmK7f0MHN6HX j0ONDsNgVtG2jxhIvtNTBut1gu KORtDdVuFFgaJVajaHCgIoF5LC JpzaCchM78EajzLEsjdF1kh7uy JvRacrTfVPrnP7WisSrmNVAvMF ludGJsXGNlbGxccGFyZFxpbnRi rZcmfh89RWL9o1gwxPGrFIutRy plkZBfjdQ6GCnTDRMYWMmQGpDi DA7hGFcUG9ADOAbDPijkOCPiB0 e4lAH8c8czgMUvq8w6RCmxNRZ2 cQuyAhVNo8VydcL9LYk8ITYzVo AinvYvuWwtlHAwd0ildPHeTIcn IswciVXqecY7JQcPOVIPZScXFm UgGO0dPVrGE6IZMlW0PevhAby0 TPw3dMpfLkmmzfWrmPUaHlKpkB 0qyKgwxK7kCqMdBMkaIYkdIAsl cXNxMBSfw9p2fn54WMxgcBlnH0 pvpYfZBK58OZyshRNwWIRwIjDe KKRvfJQgQNFnH5z0nfFmLTJyQC G3AYHjoPUwBFMpY1l9mhAtNVIr YKP7IDPnyQAmYROfV4lmtOSvQN P0RDYvQLPkWJRyPTB7RNRgI6zh ylWvzCirkxUgs5albwYicyTdFU NsYnJkcnJcYnJkcnNcYnJkcncx MFxjbGJyZHJiXGJyZHJzXGJyZH D9WTDgX1b4TQM0VVn0CHNzNgTt W2nunEadEGXgs8btCTCjXAN4UW kgCExkcYTbRZCoS1rxxhRfzXhm dxHwu5xvskQdkmGqURGlQmVxhc xcYnJkcnNcYnJkcncxMFxjbGJy ETJhRAIwNKEjCMShTSU0KHRfG7 cjcaIrJjisuiXof8vjqdUmohAf XCSkkzMlkPLlfNrngYL6d9svGT LxO7nxmVnCiAL7hCZ5EEggYWug tDVzJnOyH9ebfbUmbActviCdt6 xicmRydzEwXGNsYnJkcmxcYnJk cnNcYnJkcncxMFxjbGJyZHJyXG LsVTTsUPJjCSZ6VCJuB9vqjcKx CsowzzPdp2tgrcKidvMcERYlrq HlzVWtxWwgkXV2k1zeFHVdS7po cBrIhYH2mZS8AHWpC0PdiXciVB gfRPwiQMYwRWemrCBwNEB5rI2r VFYmwfW9HSAvvWtlmJOsGPunfc HphDmfOQviKRFgfyKpvI00Paij SOBiI19fY3AbaSiwxhVuuSctn4 oxnKSsy0EaHJHoE2ylOEAwIVXh uOKyWJYhwOSlREW4J7r1bmAvCA McrVAjqVOaLNNesUSbBJf0vnXi AJAqtoXviPRiIRIknrPqIFk5ya LkTUKkLaFmQ1gdggNswOfjrpTj y4wcpuPcmaLnAJVgLpPvdggtAx JkcnNcYnJkcncxMFxjbGJyZHJy HGPtYYEzRNKbOLP1KIKtR5lriw TnVijrdtAjf1mwiwZaktZrEELi jhTboSYqlNuajNX1s0llRURiO2 ttfAoIzBY9yPLuWCWlD4QowDf5 EFc6KUFgYgCbejVoLnJaxeLqQg JkcncxMFxjbGJyZHJsXGJyZHJz QJMbOKU8ACTdZ3xrraWzlrgxya Ldv6lyviYrsyFcPSRfMmCtonNj YnJkcnNcYnJkcncxMFxjbHZlcn WrlLUuN8raaCFBsNW7jYFlH5d9 B6prmRboPEYrA3KiqAo8CzY5WB NsYnJkcnRcYnJkcnNcYnJkcncx MFxjbGJyZHJsXGJyZHJzXGJyZH T0NTWnL2hrsyUbzpliryPwi3xy cmRydzEwXGNsYnJkcmJcYnJkcn NcYnJkcncxMFxjbHZlcnRhbHRc N9ifqFTXkNZ9tHItS5q1F4htxL e8JFZyHTLjjNp0WVF4GwXnyINc WXjqmrCxyUDCaPj1yVXvOPAihx esFAN5AASsqAZgSgoqXVxwBOSf ndDafN76MynjR5OtlFiqKBQdQU vzyZMyHLVxl2OlB5N8NOVfIZzl g2tgYHQpKZslq7UzUYeKUCBCBC 2RHU3wcKK0LFaVHRAQH3cQyWTw XcH6dBZ1Xu42YATjKHSqkBZaZO uwP729Cb14OIUdzSdhI1WskYBv EI9tGQWzCPs4aH7bSXezvNTlbE ZygPVbwDRusgKkdaYmQP24SMgu SevngYS1AVvkEucasV2hkFLYZL XRGfzRStqampJgRJ0NDMMOCH7M cPIlUeG9lYI0Xe88MWHbUEAnwA HgOJgcP139VPCnALbcXAKpFrJp Q5FdhKzwisXktFiav7umeHWeg0 HgNZZsW8ymPRVlVHAzqDLvDCQk xIQkREP7P4a4pqFbMBAwiTSaaF IrDQVupTLpOXw7tyMiWJWnwvXp kTOhASCqqkQdEYg4mzWsHASjJg NlA4gbjsGynRpxboQzj8pwmiFk dzEwXGNsYnJkcmxcYnJkcnNcYn JkcncxMFxjbGJyZHJyXGJyZHJz QOGlTTX2AVTjQ9wrjjGdYugfko Zvc0cwamPikdWfLFTfjdDleOEe rWmgsEF6v4zaNCXhN1qspViLvO C5uOMmNTIpM3MrrMi0FDt8CEDw YnJkcnRcYnJkcnNcYnJkcncxMF xjbGJyZHJsXGJyZHJzXGJyZHJ3 CEOhI0zjrcFhbplwpjTzx9fvci RydzEwXGNsYnJkcmJcYnJkcnNc YnJkcncxMFxjbHZlcnRhbHRcY2 kxtMBUuIN9hBCyD4z6I3atwHng MZAiJ9GdgNd1PcH6NLMpTvQmql RcYnJkcnNcYnJkcncxMFxjbGJy VQDoOKJcXGYeVRVfJJN3OGJiS4 pfekRxmgugjeJtn0vnddXskmLq XGNsYnJkcmJcYnJkcnNcYnJkcn grRDfxlQBfwzLuwUBzN4invHJF eXR8tNXbF6o0T8otbJp2UKMvFY LrfTh2TWE1PzIdjEEvHGfuynWg jRLIzF3wkySdnKHrgiM3RLHjsZ xccGFyZFxpbnRibFxjZWxsXHBh lmPkdZ80IhjdHRolLTB8rWlaoW 52YWRlcyBvciBhZGhlcmVzIHRv LLRfamLhGR26QPR0hqKgoLXvKR tgMAbwB06uyMpbJk35WIwhV8Na sOwqzgVioScok7wkhKMat8RfUU VyC2umDPOwTIPyxKPxNKTqmLOh FYD8Y8j9zmTdXXFllGMcqAUeXK CgfCJlHYo4ilPhEHPpghXgtFGz QHYyhuLuHRz8npWlDENiIsGoP5 lsvmDaaBrwqzFnm6ozfcFwvvDx XGNsYnJkcmxcYnJkcnNcYnJkcn cxMFxjbGJyZHJyXGJyZHJzXGJy REA2DZDmU4xeqdVcNicbvbAio3 xicmRydzEwXGNsdmVydGFsdFxj vST7m2scLMDrB7auwVaOdVO3vN XjQTMbN8KdwNf1KIn8EDDzOmKs cnRcYnJkcnNcYnJkcncxMFxjbG BqYKZoUKDfZHNnPMSgXGS7SCFo S0sxuyTgfvagtjEwk5vhyoMwas EwXGNsYnJkcmJcYnJkcnNcYnJk bfbjGAwexDRuisHwvSIrP8xpzO FGsQR6gJJmJ0u6Q2jioMdrOJHv Z0LumCy8XtT3QSCkYfCdynKeDk JkcnNcYnJkcncxMFxjbGJyZHJs QTSnPNFrGKNeGGI4VDXcN5hpit RyiderdeKft6jffzZjlfLpFGGz YnJkcmJcYnJkcnNcYnJkcncxMF jloEGhaiLcxNWvT5vgiRTKjVN3 mOXaE5c9V4xcyDk4NPKiVUKdfS o4LBH3HaIidPYfTHyolhKogEIX sODpbSGvp5VaZLdxqwAxfC8qKH ckd5GyrVKpGBK4lC5yblGnpfe6 SHEjC5GvdLvgSTOuEYcirMCaRN FvwFuusCViBThptsLwsDpgqi92 ENV1q8blqFTmXTvgJvnksSCezf J1UDxCXHIWNLhLCwFbQM7bFGxB N1NEMBiHDrm8NFAyDAz7qYz8k6 gvrXYcy5p4BIumNBN6pF6xnHCr jHHhzAWjBosiYEwea4FuTUTbOY ItsKXyr6Imv5jevZOxCUgbMyme iVEdptZ0ZEiVOCMMMIyZFdLfFY 4xNZmJL6MYOdR6QUL4Ovs7E1p9 pPrpDewhkiObgHCvFfUjsQ2utP pdgE1kYxWxKNhfSNnbMMbljUEm SMMww9b6up74UBxhvDpkG3oeuC cYKE35RGgtwFZeWOJiFrWmORVn rKWiWVCdG6m5vrBkWGHzKTT7QZ RprPNxNJNvL5v0fvZzNKTuQVY5 DBXnyTLzWSEkQ8qagMJsKHT7XD YnVIOdDRRfDTX4UQIrI4mmleAa cYaqzzEes4pyzfHdbhFjWOLfEa JkcnJcYnJkcnNcYnJkcncxMFxj cWTaPHTkBMYuGQUzUHNoQIC2FA AoN9e7EVW3IOx2JOZwZoTgX3ds tZqkETCrn0raIJVeRPE2OXqaXM grfJAcLLScK8fcipNpyWsbpcHj x9blyqVvfmRiXMZuQvEjoejoDm JkcnNcYnJkcncxMFxjbGJyZHJy FZXsGOTsQTPxYGG8JLLvW6bbdq OcKrjlpoIav3lgmtWwsyOnDUOo loEghYWurOfuqWH3y2mzBWPzN6 okzYpKzVG3hDL3PKmgAJeprXUn YzLmN5engyPndHqlftHdp5yjsv RydzEwXGNsYnJkcmxcYnJkcnNc YnJkcncxMFxjbGJyZHJyXGJyZH YbQWZvEAK3AQWtT2jpotZgIdvc yaUwc4xdltKtgxVzBSRebuTpiE YfjDtxePD3p3kiUFCdB9wzlBlG zKP1xQR9HPYiJ5IesBwhYOeaRR fdWZZlANhbaUVmCL5qQ3Sdl6At gXlmOEA0nU4aHSBvtwTvbrY3hX 2mYhgfXUpsBMIigtLxjT21Czee R9UyjTrdEJVtOVyfxEAzJXHyo3 JtF8T9IVUoVLwnp6rqWXGmMBtp b9ZsJZpOGPDKYV4AEK5jfEH8IS pQVVLVB1fXlLR8KmZ5eXk0NS38 UWEaNQJscAYnWSheP911Zd04XI jsDS49rXAvHCX7JWYqIFawj1ml GFOySTdpc7QyEHbRRNDYRL3LMH 7rrEX6VGrMGUSNMGxxBQKwZLu8 zHt9a5pxvFByk2y6YBpmILZ9sU tosYAascebvbOrUFSeiFvdxP29 Zdpaos58HHSgp2ghERDpnTWCyI G8aW1zlyPjnNv7oqZvZLVocBEc dHJwYWRkZmwzXHRycGFkZGwxMD VcdHJwYWRkZnIzXHRycGFkZHIx MDVcdHJwYWRkZmIzXGNsYnJkcn RcYnJkcnNcYnJkcncxMFxjbGJy EPZfMGRcMFTkEYTiCQC1CETaT5 jcxiJqbyhpltEvx2cusxSfcxOv XGNsYnJkcmJcYnJkcnNcYnJkcn zhEDhibLSwohOrfMSpS2nsgJCI fII7oWYwB4f5S1zqhOt3PCi6QO ZegQb3DJT1YMlyzNXgJBK7HZKi LQHtDPVcRWJ3SVGmU5zshbVeeL ugelTce5hevoRcudYiNEKuHtAe cnJcYnJkcnNcYnJkcncxMFxjbG IqPPWyQUYpCDPmHQQaZKI9YVXr K6e5WEC9XMe7CTPoKkZwI8otbY xhXAHuf3sfZRPvXwCuOXBtsPp6 KOXtXInbmVZaPSB4HUWlMKNzHL JtELE0KAHlT0prjuLsvXitaaNn j4prgyQaosXyRKCoDwHbcjYbIx JkcnNcYnJkcncxMFxjbGJyZHJi WZZoEUQuPADuPMT7CDXbD8n3KW T3CNu5HFEuCyLxH9vgzFfdPTSi w4qhDWSqNqAkYHoaWLyesAIdPc E7OXStcjHcoR56OgenISzyoVfy aPmaXFUmJJ7ynuF1FROnaVtgfz PjtrRtd0ohohajHUOcbOhzxDRd ZFxpbnRibFxjZWxsXHBhcmRcaW 82MumnfIKheHSqpTflPsopcGU4 VWiwZxsehR4ofNKEMBURJawHZv vxegTlLF6ZFAGHXyRGAG67Qzqp EFD6RIp5vAwrWvsyzjImhLVjHw PbvR7Vn1NyyANufgHoDmvbHEut SqlxfTW3SIolTvbniC5crDXSQI JRMfzNGnmvnoMcKG0CVXJVRW7N yIP8DmJyxFp8GL48SMSvFVPokN AgAZzeB282KSXwGAepRPTsKdXd N8NtiLvxlsPtxKecc1pkcCPse2 AxLURkY6epEQEoZNYwaUXkTXYz zRFnIMM9J8d9cqPmXPJvtPSinZ OtVKKqaGRmLKf2hzLcWWKlziMa aLNbQLZwsaKoNPh9itByRPZoIi BwU5hvloDvpCwqwjIef8tvdxMz dzEwXGNsYnJkcmxcYnJkcnNcYn JkcncxMFxjbGJyZHJyXGJyZHJz QQYbHQZ8FIWjU9sxxzQrMnfpvp Sjj7avodDvlvCxJFWzmbEapJTb iAubdVL0y5bzZRZgM3lbjZaEdQ V2vGClYETgH7YjuHm2KVo9ROCr YnJkcnRcYnJkcnNcYnJkcncxMF xjbGJyZHJsXGJyZHJzXGJyZHJ3 JVIeK4jtyeJlwnmmeyHmg5rhah RydzEwXGNsYnJkcmJcYnJkcnNc YnJkcncxMFxjbHZlcnRhbHRcY2 wzaNJAwAN2iJQbE4z0T9strBvr KFCzX7DxjHk7FtR5ANDgMmEwiv RcYnJkcnNcYnJkcncxMFxjbGJy GFEbRQRaNIGeIUIyQAI9QAYvO0 axjbTtfqwvjtDqk2cdclUjjiZd XGNsYnJkcmJcYnJkcnNcYnJkcn oaNQztwTWltuYjxLKdD3sehAVC eNL9oMFhB3p7H3mfiBc9AMTrNS KryBm8JRS0UmYyiXBqEWrzxoKk aWGHFITevnQ8kjXeQZuljxZrwN 1sSowdYPybRDTbmbQkmV59Dtiv M2YgiRpgZWHeAFhohKNcCKHjz2 YiP0U9FRLaHVbil5dvGNGkAQqh i0GdETlYUFCOOG6QRI2uaAS4VJ mTRCSPK2rLyOM9EgO2gEJuzIFb lUyoTmyohoDcqSNpYcVzbH0Rp3 QgaWRlbnRpZmllZHtcZmllbGR7 NCgpIpizaN7enHDXIJSJVutABx soqyDzGR6XYJCHRC9BwQY0CzR7 fDEwfDEwfXtcZmxkcnNsdCBcJz InmA2shGaihQ4hOoFbGHzbJNoq HBfwjIPxRPWmb3a5vh79SNqbkD llI3yjcXbEZY65ZJzryYOdMUGv FeCgFXIlwDEzMUXfE7o6vkKzIY HtDVO5LNRqwXCpGPDiB7a0sxMz IMYcGRR9HBGlfCFoMUCcO5jdrV JdMWW2WWZsJLPmVXQuKEP8UFGu N4lxxnOgmApnvhHbq4umhuDhmf EwXGNsYnJkcnJcYnJkcnNcYnJk cncxMFxjbGJyZHJiXGJyZHJzXG FnGWY9EAKmE3a0EZO6RCs9HYHd ZlSaP4tyiZybBAZzw0vfUNPwRQ D5CNxzQOpccWWhMVDqD0yyikSr fEefjcEjr3bvgbBnyfNhJKKqKx JkcmxcYnJkcnNcYnJkcncxMFxj gJUoEIYxPDImRMCjXXIqLDW4QH ZpW6omplNeOopnjgZdg1szqhGi dfMtSCIcuePsxSRodMpqtZE1y0 qlUXUmJ0wbhEtMxCN4zRV7FZxu FWjtqVPjNvAbO2tdihPpwNjamj Wls7opahRbkeFcBFFjHrZudprj YnJkcnNcYnJkcncxMFxjbGJyZH OzJMDyJPYpWUDvQXM9BUIbC8yf haUgNugnfgOuo8kttoDmrvKrPT RbxzAisCIqvEivrBF9e1arETZz D8aqqAkLsEW3iNH8LPEfJ7YvoI gxMDczNVxwYXJkXGludGJsXGNm FxKSqA6yatMvvKDfnP5uZQHtm7 CdRkgxSPluKKNtrlFnyK89Vqtz S9QjXEKalHooqJRrROewuzFvlL wqil75KJI6u7ctaDOoNEamZqec hUWagzB5FHqPNPGGQThDUoBdKF 6hOQaXE0RKOGwLGbo0AYRtZhkh WEdeNG64CMQxXCBslODyEQsyX9 49TXnynSRyVFAjx2UzpM4mWOl9 XXKlHYevk5dzHGVkMVlhh1FnTR fRTGRSDC9SYJ3dhEY9TFjHBAUF NWq6RADsEnrzCOhxVV96SXFpIP MfkNQgXNwbE779KEMsHTtbHPKr JxUrK7PoqTqsbiMgtKdyb3tahH Ifw5LbCHWvX5exCYQqJDHjhNWf SXUcuHFnWAM1X0n9xbOrNGBdwD AvxPJlBALqxLDcBXp5eyVnXLEg itEmoQLlMDVgjiFnOJw1gjNuUU PxRjFeB6atheAonCxmrpYnd5ta cmRydzEwXGNsYnJkcmxcYnJkcn NcYnJkcncxMFxjbGJyZHJyXGJy CEKxELBmZWQ2CMDbG6tkwzVlLu gtyhUxd3wgljZvriThRUWtktHk oWHnlFtxiOW1u9ugXIEbT9mjrV wCiUY4iUWkMVIfQ2JjuNm0ZKh7 XGNsYnJkcnRcYnJkcnNcYnJkcn cxMFxjbGJyZHJsXGJyZHJzXGJy GFG9ETTgP5uhlhVggfzpqxByi9 xicmRydzEwXGNsYnJkcmJcYnJk cnNcYnJkcncxMFxjbHZlcnRhbH KzD9jmcSNJbBY3sJSdA5v1X9ed vUymBFDhC9RcqVc0CnR5OEFvTj JkcnRcYnJkcnNcYnJkcncxMFxj xUXdBVXuILUgHKIwYSHsVZD6WS ZoZ4zyfoMznemhjqYrj8naoxLy dzEwXGNsYnJkcmJcYnJkcnNcYn GdepllLUjclBIljdHdeQBhH2xs zXFNzUN8qOBhR8u3F0egtRe7RU ImBQYdcRm0ULI8DuHayGHhLDgm eaGiqBABogFdsU9nidFoYXJbKR M3PfpuSOzoTTMclwRvuC44Puab O2AqzGfrPDLpTCeyjYHrIHHhl7 EyD5T8ABYsYUylz7uiJKRaHNpt b7DdMEnKTNPGGO5AJS7myUO4HY hYCKBFS9uXhPB3JiAueZKyaCEn jHwlZnwdvbFedGUxWhLvlA7Trm Jtqx48nxWheoMgtHIkbLOykKW6 wCLbDNA6t4fqqVMrYSdiSfpnyX SzyfW8CGtONXPIAEjAPrEtBZ4n XLvHT5RNUlP7JizeTSX5MKO9YZ O0n9sepDQtx2g3WWnmNAO7nCso zHQpkxzndaTcHNVjzQjhnL30Bu mrmz20VSMoz8gcSQYgjTUHfWE0 jT3wyxDuqAc7xkPyAVRrzFOwwJ JwYWRkZmwzXHRycGFkZGwxMDVc dHJwYWRkZnIzXHRycGFkZHIxMD VcdHJwYWRkZmIzXGNsYnJkcnRc YnJkcnNcYnJkcncxMFxjbGJyZH QiUQXsBWZpIOEzIBO3IIWrE3hw pxJdzesnkaLag5scjlEbpgJjCQ NsYnJkcmJcYnJkcnNcYnJkcncx CHcmlNUihuNydLKaM9ichUASaR G4lXYgB7p7U9jhwEf9BPs3TNWs oIy3GSZ8NVijaIInSYK8DZNwSW UxLVZgKLR4BKTjA6svbgByiPun icEft3fvbwDpdnFhEWCfWkPodp JcYnJkcnNcYnJkcncxMFxjbGJy PCEcUOFhJZFcJGLoIJI0UUUsM6 u7NAA1YGy9FUGqBeTrJ6ozoQow ZYXdp5jhVHKsAvGuEDWdyZe5OR HeOEjlcWMuBEM9EQIaTZXjFQXt CGB2UMIhS4mvleKwaGfyzsUls9 xicmRydzEwXGNsYnJkcnJcYnJk cnNcYnJkcncxMFxjbGJyZHJiXG JnBGMpDAKzJCG4BAWzL8r9YNN6 VRx5KUZfRkRzC2hmrTjmRXNsm4 dpZHRoNjQwMVxjZWxseDEwNzM1 RSGibtBqbA74HrgtLVKgO9qgph rqH3DvtMrzVQMxIUozkJTyHGTo bGxccGFyZFxpbnRibFxjZWxsXG lbaFXoEQYof6h2xh18IGjczElu G0fqgNmTMY79GKmseRGoMYGyDm WlJPCxbNAqZBVbZ4k7diTlNKIx FPR4HPWvgFYmCECtD2t0zhItUE SdBMW1WNNdgXEaUPHzH3zjuLXe HZX9WNUoOMNjBKWrZKA2QRBkJ1 mhweXwpSijurNpm4tnmtPfxtXr XGNsYnJkcnJcYnJkcnNcYnJkcn cxMFxjbGJyZHJiXGJyZHJzXGJy JPL0NNNsQ7i3QFV9YWh4KNCvTz JrZ0eziUetWUExq1tdVYQuGXS6 DXibOMgghPDhWTChH9ugegZefB oayhEat8zvrpZqglPdWNBtKrFm cmxcYnJkcnNcYnJkcncxMFxjbG FhLZMyLTPpIYNlQYLcHYF8BJBg T5zmxhBpOrbhmyJui1mhamRygx BqQHFkckAmaOScwYwflMO8e9ps ZSAaE0qijFnCkPP3kOX3YNdkBE ioqYHoOeDhK9tduwOmrEwxdtFs r0uhadGwfeCiMYZaTdEsfmzsSg JkcnNcYnJkcncxMFxjbGJyZHJy XHKbXQLjATEgFNB1OCJjI1owqq JgDtxejvTvs1fvniMkmkIfTHEy dxYvxPEosGnqqKK4k4srTWExX4 tmrFaXyTK3hAO2MIExV2QqwXsh MDczNVxwYXJkXGludGJsICAgIC UINHOvdG9cp8YxgLBpOCGlizJf fsRqt0b5JUBqPRXkgD4vlEC7QQ NlbGxccGFyZFxpbnRibFxjZWxs RBZscfMhgL64XgkewLWsjICqfR vaHgucfDN4AStvAthziF8doNOF ACSUKrcJSoktydOpOD6ZHXTHWi KZXU86LSM5ZBM2KED3QGF9k3uy aIEod6k5ZFveMXE6nKZluUGtWK RbyF1iSK4kM8V1vMNsHQNxrsBw ajShi6l1ISQsPNHayV9huCA7BP KaSBodd9vaHGLsXKlmt3LiMKiP KMFUBI5GTL2asVZ8VWmDRKAREO t5OPF7EddbX1vcF455XRNtGAPq iAHiLNbuW892LZQjDPutRKQeBx RaM2GttQzlxcBlrHmav4mvuPVa e1BkBRGgM4xmYKGeMEIyfMXyIB KjdAEtLKX0J0n0zoDyANIwhZFk sIMvOAVtvYZjAQk3upYdRWMmpq IdnUBoNMPjzrBhUTx1oaDyTBXp KcRmD2qtoaJheNtbnlYgy7tqdv RydzEwXGNsYnJkcmxcYnJkcnNc YnJkcncxMFxjbGJyZHJyXGJyZH VbGNAkMFB8KXDaQ2ovalXtPcro zwTao8pdgmHzrxPdZOQlooFyuY SloMtbsDN3g7tsXUZwE1abeXtQ xUL6vEElUORzC1IhmQl7KOn8BE NsYnJkcnRcYnJkcnNcYnJkcncx MFxjbGJyZHJsXGJyZHJzXGJyZH S2WPVcC8xhqgZsdkwoxhAup1gx cmRydzEwXGNsYnJkcmJcYnJkcn NcYnJkcncxMFxjbHZlcnRhbHRc I5yfwDYQlHS8tCJxB8i9H0usjE gcRAAwP9RhhYs0SjH7BVFcTaFt cnRcYnJkcnNcYnJkcncxMFxjbG OfGOIxBLYfBQTaECSuEIC9HZRl Q2arzcFuvrlbehFma7ardjNywg EwXGNsYnJkcmJcYnJkcnNcYnJk lvexOWohdFZjqbInmATgO6tbyC HCcJS9uJEqE1f5C4kjyRl8MEGl NVZosBz3RYE6MvAmlXAsESkwcm MtvDBlFRRmMDJzS6qeHRG5QIO5 tyIyj9Flmi9aTGinlrFryHPvKA F6xW8aHsdxAXwxYLYqxyTncO78 ZmgxB8EuoMwhTULnQVjwcDCsUZ Ojn7GbG3Z5PBReWGifj4qvHJVo OCbqo3WwSLlQNKGFMN5CTM4ntZ L7NQcYKNSMP9xGdMGjFoLanSR9 yIH3xHkpPlpmivBkkXUpRiOubV 1YoYnorEPkH6ggdpPvDOzmtBm0 AHQfi9CkgBwchO9geqKnTKBpkE HpcOVhaITdQaXjmtVyHN28P17s XYgzL4PfD1rjr64jPWIwJMFwk5 tlO7UxMAAhWEaceFgzd4tuw5qo qJVxLBjrLlacfMQwkgY3IEaPZE FBHOlECpVjWH4nCEuVV8ZQHwJ4 OFY5XIL9MWP3YUF6s5mouYBll9 g8IQaoARH4iTlvvGTilvyyqyPv LPVxaBjhyF48Rlouri41QIYpe5 piHXHckYWXxFY3aL3nfdNjtVe8 cnBhZGRmdDNcdHJwYWRkZmwzXH RycGFkZGwxMDVcdHJwYWRkZnIz XHRycGFkZHIxMDVcdHJwYWRkZm IzXGNsYnJkcnRcYnJkcnNcYnJk cncxMFxjbGJyZHJsXGJyZHJzXG GuLGO2YFRoO5labySmypojurGb j2tjzbVmwtBdHFPxAwNpfkWuGq JkcnNcYnJkcncxMFxjbHZlcnRh zCJuZ5dhePOOyZE4cTJjV7c4C4 yokUh2OGp0SUCxnNp8MON5TTjj wHHlCWY2TPDoXARrVLMlGMY9HC GuM3semrZmoWkfpfOow3wbzgQh dzEwXGNsYnJkcnJcYnJkcnNcYn JkcncxMFxjbGJyZHJiXGJyZHJz CGFkTZG6LYUjW1n5KFY0CCd4HF DcEiCfG8adoZpnFSDqf6fqOVMr ZyKmUQProXb1IDXyCZtcsZCsIY E5OIFhFPIzWLYeIAR3FKBvT7im hhNgeEoqgsJtj9barrRtmmPgHC NsYnJkcnJcYnJkcnNcYnJkcncx MFxjbGJyZHJiXGJyZHJzXGJyZH K4XPApL9o8JKQ4FDf0MRKdMfRn F1kizOgbNPJrl0uoEJSnVgJuGS rxOItawIKpRxS8CEQgrgXxzS47 LhieBuDdzI4sCDbhfOtvsGzoyv 7fDEE4UWEknZuoxHYkQQyheqGc iCmeXAogFONolcPhtC06KaxpT3 DilVwqapLtlXokl8xkaLEaz6Ln IUDfK1xiRDEuOWAnmDTeTTDgaQ DxNSC6W9n7nnKhWIPzoQMcmNNp RQTvfFAoNIt4peCaDFQqpkVavW FtSZJlnrLyGBa9alNtGALxIsUz P7eceqHhwIncnaRih8josfQpdy EwXGNsYnJkcmxcYnJkcnNcYnJk cncxMFxjbGJyZHJyXGJyZHJzXG WzQQF8DKSmA2orouNwSoudcdJq t8relwRvdxIuCJFxpkTonUTbnQ sjvCC6f5oqROLyI9awbJeRrKA5 mNIlEYSuC3HmcGo3STl4SGLlHk JkcnRcYnJkcnNcYnJkcncxMFxj tRHgRBPtWQQsNCRbJELgQYL4LR XcF8bxnyRjdnwsnxTxd1zfukKz dzEwXGNsYnJkcmJcYnJkcnNcYn QcudxnJFzwrEKtekGzaIWjW6sn xDGEeTR5xTZyA8e5T3lmrTvaUC QeS4PgmBw7RrL9SMBgShJrkpRm YnJkcnNcYnJkcncxMFxjbGJyZH PlDJHjNVVkPAUpFTS4QUAaM5oo ldEaxvwmpcCie1jrjdCwcxYpTL NsYnJkcmJcYnJkcnNcYnJkcncx JFsdtJQpdwVemJLlW6kyoWLGzB M9bHVlW2g2G3etdJw5OFRvQVOc bDy0UCZ5JkCczJWeCQsqbzAxjN YzZJDpKyZrqF1tJQvhcRqnbEhb he7lVUEbbJR4oRP8KYRpqPdkqY FyZFxpbnRibFxjZWxsXHBhcmRc xQ15CmuufAJsxXFjaYjkOeofuC U0FItyOvqubR3duYWEHYVWNvcT ZqszxePvPH3BIHTAGpHTVO37Db ghYZN9YMM8WVA4f5ynsWAvw7q2 PGsqKIB3wDG3lT3sMTHdHDUggg QxiS2rowIzlV5sTBezeIkouNrj dw5mXLabRJE2GNZiIKsgc2cwZH YeIGwvu7EuPTeVKMCREH4CEN9j xII5ZRbDYCRMNOszPAY7RrrgQZ krLT04EVDhCAWayISzBTmwO869 RWWnJUmgEVNsQbOmE6ImqTtlzo YbeWioq1sowEOiz9WrKKPkG5oc WZSeJJTtsEHgOVTxzQYrBLJ0T5 j0xzGgKDAtzLUuuRTtSKEpwIBg OKw8fjTwEXYgmvYibQHoTKFsqx ZuPGe4kjXhSRYeKyKaG8hascOw aWvuguPka6pchqEdbaXhJGIjJf JkcmxcYnJkcnNcYnJkcncxMFxj qHDdWOWnKSFvJNWlEOMzOUL6UM KoZ4dwfhQcMjqcfnFxt4bxirIl xcPyTNRxngOdhELinZwbhMP3r0 joZAMiU9ouaSaPbAL5sJTdWPCf I7SvrWh9AWi9JFNhKkAqwaHmTv JkcnNcYnJkcncxMFxjbGJyZHJs CCRdEONcAJJhXWA6JNVaP8qrcp TpgygphpHjr4nkrkHdoiMjCBMh YnJkcmJcYnJkcnNcYnJkcncxMF qcxJFrhqAioZCzR2lckTHPtKJ6 lIXvW6c0M5ebkQgcAADlW5IweN i1QgT9SSNuEcHykfIfKbMxkuSo YnJkcncxMFxjbGJyZHJsXGJyZH QwBTYuTZV1OPHuI4nrtaPqewsh fkYez8bfaqQissDrCGYaUwXsii JcYnJkcnNcYnJkcncxMFxjbHZl tnMwbYMhQ9gqzEUIwZU3nWSnC4 e5L6zddTz3FZLiAADiwBp6GLH6 MzVccGFyZFxpbnRibCAgICAgTn CjWhZtDP2oFBd7bHBsRB1eXHSl JUvymIitdZGiz8A6QLEbeTrkvD FyZFxpbnRibFxjZWxsXHBhcmRc iW11UgbeXjekCRxbFXrcsSVzXE Efo7c7ri70LGbblCldZ0aagHzF HD47WSnhcJKbXGPhMfTaDRGiaD CrMKRwK5n8jjGzQGOxKWY5YCKr gIAwJGJaP0v5jkRwOMZjXCU8KF EvdZBoFMHrL1xwgUSnFPH2WUId SQZcNBNuHHW0ZGTiD4fnmcEobF zehdBml7auhlWvogZmPMGqDpHr cnJcYnJkcnNcYnJkcncxMFxjbG TrIXHkETVhUJIxGWWkQDJ1PXGh K3u3OBS7NKt3ROOdZsOiT8bloM qaBKIfd2itRMSdDJV9KKmmDOfh wZOzBBOxT3cjemJwrXivruDke3 xicmRydzEwXGNsYnJkcmxcYnJk cnNcYnJkcncxMFxjbGJyZHJyXG QvENDcVBWoLCT7IPVvZ5lyntWd HbfikeRxe0xyeeKsjmVaHXCcxs TyzTWjnEexgYD3n0ksNRCjO3xn kSaNaII7cQK7HRfjCJnaiKMaZv PnD7hieqGkmOfkzuJve7jeglPl dzEwXGNsYnJkcmxcYnJkcnNcYn JkcncxMFxjbGJyZHJyXGJyZHJz YKQeKJS9CZPdZ8edqcCcSzmbim Rqz2chmqNcuxMmLAUbflJatFMh tYqahYG1e0xhRNAgB0fbfQbFwN H3dMT5ARKfO3ZmnWwlIRjpUJfb XQFqSBnxuYBxRLAuMAUGjQ0lST Baf5XcgSzncCkevk1iGIDnIIai dRsvISE7AQBwoAvidLXlGExqmr AfrLxeQOieKGCtpfMvhM27Qphh NrYeU2FqxHbgzrOvgDzpy8evyH Pyb7JfGGJxZ8aoSLSoALLmgUPu ILMshADjRRK3P1x1rdPyQPXfbE IvvZRnKLHccBBoIWq6ixRpVIPw iqXboSZyUEZqbsYzEKv6eiKjDB NrSuGeN4bfelBflCbdycNxt0ci cmRydzEwXGNsYnJkcmxcYnJkcn NcYnJkcncxMFxjbGJyZHJyXGJy AXZiQBRdFTF7HZXnE3bobiAjXh erwyRvl9scfgKcusZfMEIbtaSs gDRboDgsoVT6y6vnYOGlH5hauR wCzJA3nMOjRRIcU5WdbCl1OLk2 XGNsYnJkcnRcYnJkcnNcYnJkcn cxMFxjbGJyZHJsXGJyZHJzXGJy TWE8CTNlT4pakrOhintfksVkj5 xicmRydzEwXGNsYnJkcmJcYnJk cnNcYnJkcncxMFxjbHZlcnRhbH TkM1xscJACnOO9uIExM3m9F8iu pXkuJNRrN1ZdoUc1UaV4IROiUt JkcnRcYnJkcnNcYnJkcncxMFxj jJUrIZToMRIbTZKmZRQaYUT0JD LgK9lmosZsvpuossGyx3yyqrPj dzEwXGNsYnJkcmJcYnJkcnNcYn LclvezAAsdkBHzolRdhQPcK1qi oFPAtBT8rSBfU7v4K7rsbTo9HP DzXAZhkNn8URG2VdOagKImCMny dfGtxUNEsN5tjnWzMGMds7o4pp kxL3KuzXftGTBwJOjtoSRdJDNr iIhezULqVCdxygZzrLlzhj88KY I1j5yipMEfNXvlCcjbaBLvlbR2 GKuOFVYYSFgOZdLmHS8mNPkSU4 HHBYnNFhmtJHF6FUcvTajgDk19 MOHfJOMcfNVdFQviF450BHKsj1 TtcFLqF994laLdGXMhpTBsqUSy qGW9QZJdSPgsp2owXXPwOIpmp5 JpJMfPOFJNFD4CAB7dqUG5A6sD XBKUU0iHkAU0bQndXelujfPdoR AeLxGfvD1ie7mvqWEiNBhlLemd nQFtivC7OWjTMWRYQAmSXoFdVM 4yGQeVOBPFEsU7EPs9f5ntoDYf o6z2TGwwPCG5wJgrrABvprydkc 92MOA8BZDsGzNqWNcqIsknzPY2 HHchMzixwM2puSPZIXWUVgaTKv xzgrCyIJ5XCGTAYT1BoQW9DwA0 fAA2oJZ1eGvpGlpwzhVvhOWkKv OolW3fqLxjtV7gNlWhQDpmCNjw WGizaWBbOVPkx7j2jn83NSsbpG uiC6yikOwFYM08FZmrzTAcJXZu SoUbEYYxlOHkCNMyA9t7djLhTT EyATJ2YXReoARlNPNqW8n3keLd ZKZyYSG6FXKnqVJlMVUcS3qcvU JtQGU7NGXzMULfHDXbLWH5MMRd Q8yavvDqdNcrjlLwa2dyfyTizf EwXGNsYnJkcnJcYnJkcnNcYnJk cncxMFxjbGJyZHJiXGJyZHJzXG VgPTM2CBLwT0a8AFD6NUu6VPSt JyEfZ7hvdWktJGUor0skARHeXT D0NOenOJyuaEQmCSNeD9yerxBp mPghuyZxi4rkwqXmdtNmAUTfYc JkcmxcYnJkcnNcYnJkcncxMFxj cKHqJYDzXHWiKFDpZNNxFQP2TR RgW8xxhfQiEkrmbnNwu2opefXl oqOlCLTgfrVjeGBguEknnAZ1b8 nrBPRuF6fucDrMyYC7bGQ0VOry NPckiMJnAgBkX3nrgiKhcPiybl Bkg4nlajDpfvAiMIStHtIozbtc YnJkcnNcYnJkcncxMFxjbGJyZH PwZZXbSSCfXBByXJP7HBFoQ0sw fbGfGerwjdXdz4edafOsraLaNG YicgOxwCPoqQvjvNA0p5mdLUXu A2ykjAxVrBD2yPR7RSKdA0JwuU gxMDczNVxwYXJkXGludGJsIERp r0IlvrFki5j4WPafNBXxmpEkvL FfEUooN7ApxZndVITnWOvbxJTr XGNlbGxccGFyZFxpbnRibFxwcm 76FGB1m0nekXBfMHndRyvfzJOo yaP6JLzTRHUMXKtMPqVaEI6dRF lEX5MMOYeMFri9WDz9DPdeGYhy QR64ZGSrBLOsgMRiPTpcC898ZO r9GJC6XFTyDXrgw3urESEeDPqt k8EcQNvWZOCZQS7ICY8fzUO7JS sYEWUANCa8BVw9CWjyRUdwVT46 OQGjZNSnuNRzLOnoR526HVZlGC lsUYYuYxYlJ5PzjUwwsyLqdZrh c1vjoKXmh0ZrQPUrJ2jlMITbVV ZzhMUjIXIkhCItWWJ5Z2d7vgPx NKGptQLnoVHiNGHxjDGeRPz6ru BhZGRmcjNcdHJwYWRkcjEwNVx0 naMnTHEzImIeO6boezYjsOzaty Slh6weclFermSnFUGhBxBtqprx YnJkcnNcYnJkcncxMFxjbGJyZH PpLBYfGRQkSURsJEV5XRLoU9dv ibWdFvifgqFvp4ehrtAiawBvKR WuntQmsLFgmTsueAK0j2ptJFXf D1lvtHeOcGW1dEZtBGJyB8XzlU w9DBf0JYHzBpErfyVwUaMpkbVj YnJkcncxMFxjbGJyZHJsXGJyZH NxRYKeZDO2XZCxR1njslJqorca ohWpg7dakxUgdnAxSOEiMcOalb JcYnJkcnNcYnJkcncxMFxjbHZl wjHexELkZ9uhpPZIwNH2zBDmS7 j6Z8exxJwiOZQkQ8WtoIp3XwQ4 XGNsYnJkcnRcYnJkcnNcYnJkcn cxMFxjbGJyZHJsXGJyZHJzXGJy ZFO7BEIaO0pphsEmoyrihsGol9 xicmRydzEwXGNsYnJkcmJcYnJk cnNcYnJkcncxMFxjbHZlcnRhbH OmR9kcrEKUmVT5eOLoN7u4A1xd sBn7FTLeOSIoqSw3ZBX3XuGzpT DlPIlzstDawJicYQRFF7AsENXi DXRsjHMqq81gtJQ1mH5xk0whMn DzgKBwWYrqM6ThfMlrDQYxAUsf dGJsXGIwXGNlbGxccGFyZFxpbn XbiEz3hMCgvLizQIKqOdEUb2Mg OojgIQWBhTPnd7zblCVqjJxyre egWLRal1VuM6F0BDGfJAvst2me TXQoLBgkq8IyGWiZGMYYMZ3ZPE 6shRL0TTtGGVKNR0pPoAV1IMtp iGJ3tQF6qLhqLqpfxjNulNXbNx CdwZ4Fr7UwVXWsqSlgDBEiWKrb ZzpsrGG8WZeeKhpevB2kvDKFLE ORJguXWlzxbyZsTH7KALIVYA2S dMW3LGlplPW1gLP8hDfvQoukul OieLCvFmQeiI2ewVsewG3rBemt hfHvHZRvighqz5cnNLC6cJDist MyZSlxrm68DXR8f6qjsYSoCBji JnzksFAtbdY8KMqHICLXXJsQTx OcRN4mAXxUT4XPLAsWRmdwMmT2 NsdoNVphYF44OWAeUOBjhFFcVR psC302TWE4JCKtKFfff7tuVILp XLtar2MvMKxCHYLKSC3EJG6nrK A9SPrIHRYEUXdtYjR7FftyIPup QU99KLJkHQMrpROpOSbtR982NI LiZNblXWHtYyUoQOxuHGGqnD2p nAMeqDUgtTcyRevgjRW0GPajXd dgfN4alAPHASTRTctQVcjideRw HE4CHEBHPvFKGD26IqFkFEu1Kk O1OzA7s0btrOEst6u8ILkdCRN5 nLLoi8adaLPyAIwaWuvvcFDpfu U9BDaIPUIAIPtMJbUyEY2mZCmC E2SBGcX8TcKcPFe9AzJ7ZbH1f7 tmvJPvc6b7LOjcDVZ6iRuvbQYf dmnbXCUoVxDqVJbjAGKtlJ5yfN MwwKXacAddYwjvvRO8BNptLzyo nG7psLXRWMBZYkwNClpsktGcPP 3JLTGMWeRYYQ29PTX7BID1JeO0 XzY6c2gdgCQij1j3MOszTOZ1aR Qsd6tznEGjKJfiLcidcAJjeiE7 KIjKBJYLDYkLUlOgCN9jPUfBW9 JAQyG0NVQ4QCD5JnR7LjY8b1nm zUChf1s0WYriUHE5pJlfkRFmfd xiXGZzMjAgIFxjZWxsXGludGJs FNHkb7u5uh96PPsybRynX7ctsH vNBN31RNsbwXJryWBhj1d0uhUt ZGRmdDNcdHJwYWRkZmwzXHRycG FkZGwxMDVcdHJwYWRkZnIzXHRy cGFkZHIxMDVcdHJwYWRkZmIzXG NsYnJkcnRcYnJkcnNcYnJkcncx MFxjbGJyZHJsXGJyZHJzXGJyZH R4GNFcB8dmtmLntfdrieEzi3dc cmRydzEwXGNsYnJkcmJcYnJkcn NcYnJkcncxMFxjbHZlcnRhbHRc U4wkyZMEjTS0dUHqY6b5T1cwrK s8ONh5CMKnyFz1BKP9ADavtFHf IMD4INAtQQHkXVRdBHI7QROnW4 hbfqNxwYjbvpHch6jurmRtiyPq XGNsYnJkcnJcYnJkcnNcYnJkcn cxMFxjbGJyZHJiXGJyZHJzXGJy DTT8DLQsL2u2TMY6PBr0VHAwCg WzI1mbdZhlYCDhm0izHNOuAoWe ZERjaJv8VKXrQJkahCFlBTN1VX ZaPURnTBYvSHY3NLNyR8dvvjMz sEnfcoZlj0osopDoydIcKHYpVp JkcnJcYnJkcnNcYnJkcncxMFxj oEFtKZWlZPEdJPPdYHIyGGX4RQ GcL1y3YAI5FFh6HJRmNxRsT0fd tTjyMLMsg1quDXFeEnHjWYgjFX ztqQKqYfM7ZWKkgjIbpU50Uexj LsAwMM9XVKE6kCTcNVFiVWOrxp Pnzu7rTEOyloJuwJUjPD68OCJs o1XdLUOmiUyraMLrMJtwdaAepE mmLSqoEHMabxVvkW09Xuttu6qg H3IwnZGkQX7PRBD7FExxoKZgrF Laqx50CUhpCJT9eSFyv5Ccv37o YZTtatAHE8znRuMVxiXjO4IvcA FwkSDqfqLkuIEvZXMtxT0tTevo MHXvVGWKRkztVO96IDM0OJSyg1 XpyX3tNBypdtMqd8knat6zbNCy NWPKFwP1CPuazEUjqNBjxf93FK mcQLI2dJCvv1Hfu46pSHLxmMmn pR03Kncthl93IKEujzXztZGcMQ RkVP1bNOeuws59XYF6u8kkzVNn PSexBavnfTTnztX7WEqLOCYNNK iCZwByIY7kDYdGE6BGBYkRLidk FNW8PIegI9okC379SOSyHYPaiU KjBBwpM987ZRXwfETJCJOeICMh dPYmtULpaAQ5ACBbJCuml9swTT EmBOvpi9QrNQcVVVYWAL0HFI0h zYZ5Q1gRRBBXL5vPhAD4sTlfPt pxmaRuxULvInZjfO0ObIMpdpze VfzggTN3VFwdJqkjaH9jvGSTEH AGToiGRbfhieLgUH8BITxHFO4D qEC4yGzaDfsdrqGmcNTwJaFxhS 9gnVixkG7jwAZmwJCkdFtqPSQq DhSvJAYefW0sr5r5j5ahuENxTO isPmycjZZqbxN5PAzQOHEPCQrV VfZcKO7fDVsUY5PCGgF6XwFmDE E5XoE1ZfR5i7uzbSMrj4t1ESle NHT9oXyzfNBbxglkYULvSeXtzG FyXGxpNzIwXGxpbjcyMFxiMCBB RNXmo9WjhbKijf3gATklkV2faA cdpQ5xwSAavEg0SNRiveXfu4Nj qaEnl3s4dZBtHXTxe8WabAcgYW ZwyU0mqJIufHSyuPCwiP4mkCIf GIzyPHfnkC6cBSOeifqpZUMkKB JCb9czxoiuzlqhrQFezQAgnOUh gFLhbK4mnKzryLYbCXtmAfNzWA anpvhwOTcqSISEghTdg3d3CFIp n5YrfeS2BRc0NZBgEmLqoqFrlQ qqsWUkQENxPK1lN4NkR9cdc28j FcLlY7WhENF8pr3zfGcmJXHvrK 5sbN5iqMCvBXReugRdmZOtBRWu Y64ABvUFNGYFP12FHOEXKTWBA7 NRC4wSVMIoEiC8lKV5YG9rANX8 DHyvPRWqXgcyFbF1Zi2gBnObGq I3bWS9JH4hCLEqA5p3YGYoDKK7 GZo3Jg2nHoUsPgT7dUg6KO7qTQ HcTDx5RSSwFspoMSO9VQ9dIfB6 HgC7jAJoLCSdDQX9JgG3XSZ4Z7 1kHHB3YvscOi0sNfLcHfPbtWGb JXKaCYO0GTD3ZUW6ZM2wGHO7Jt pnHW5oVnR1UcP1fUX4AID2GeP7 GkFrUkX2mDU1EDEwOBbeBYO2QG h0O19hVvF4EybeYW78KfKoCQj2 rFGjTBZuSAD7KZD2ZvV4ID8iJR N2FLdfAu4nPff4TdO9POIZNMGE CXtBJN0VLDURCTQHAD7NBqGkX0 lMRENBUkRfTUVUQURBVEFfQkVH EN8uKDtfwdAokDJ6FMwKsCAzof aHAPPDSUPRA69KVKNXQGIHR5QN QFBCIEIXPJpVQSKXOg3GJATYRO LUTN1XYXlACpHfXSjgjwP9YBP0 WuqbgBOae5WqGsF7GejsOfZfmS Lvf3YtUdiuSQXfKUn9CPx3J8U0 IJx3SYZwB0k1ONd0H4B1GoP6Qd M1LX19XWuaHvUkEzWuLaT0QG50 CPvmBlIpLrEeIwX7DT08QMarMj N9DsvrOrVtzTjbn8FeVBC4Bzwy HNIorEKcLGgwRzYnYnE5IcB5KA 9xWQi5Q9PeS0L4CNY4OxUouDQw PVkhRqLaBaR3RuIeKX2cH7o5A3 XnP1Q8DNP5JREmfBA9ZLhgZfM6 IcVpFrOjJD0gHEr1W7UcTMhkBE C4Fkd7YTLwh9MoUGG4KgwuQAYi pJQ0AZcqBsMmJeYdEtR8YF8pDG p4JGW1FKbkAFOfmTNxEXbbKkT9 OyHkFIr6KM4yOEu8C1PkMxobJh J6BPc7WbWtm6FiRxG2EMK9AHYv eHPzPMsKANLnhkIaQiV0YbT1VE 2pPVqHE1GTS1rLSDRiVTZKMHFD ZPTcYP7ZZKpSKC0RBJLqQRAZVN FWAANfQjYCGN5bIDzOSF0CEDVx OWRXJIKFOFGaED8HAJPXGB0JBX CJVMJLL41WSZBJNIYTZ7YER6tD XNNTUZSEVjBOLtTEFU3GLAJMIS PTYO2SBhZ4 [facility] Work Phone: Pathology report gross observation Narrative z1djbJTtLEYtcWWbLUZqXCqedd WxLBUsqHTdG9GjxhobNZadGJ7s XO0slDxhkWXepFPpXNJpYpGtz6 uxq406jPYub9inJGZDiqozbJf0 tYceE89ep5P3EoxsW0gbZPSvMF nxVJIlHFiigPFgKEl6VDXxcTXl mzJnOpIgBERbbWRolPR2FGUcMV 4zwnloHTfsSLzoFCJfcvJ5EHSe qIUsY6TjWGFyJH7lnwzxNUX8EV kfRYMpDXA4XnHfBCLfa8Gowmr7 XrZigGp5j0zlOPAqVLHtmNdgb5 vbLTO6JKMoxAAhY7dnyY9aCRRs YD9ajzirm2zlSGhaOXstZWEruX P5vdQ3QZLweXUdW3FxnE3qFRYq AOWvaoUufTwljX9tLuRhSPqdTc NwTS7wPBIuP9DnsyTjICGqMUMb IGxhYmVsZWQgImxpdmVyIiBpcy QfCLGwycGqq41bq1UqIhEme51x i58daQG2sKGrbHCjn9ifN1qxoR Bnl4KbTRFbCU71GCebWH91ITte VE10NRLlEcQsUTczON75bECxVE B9vmNgD0PcrVHrmE1jYXWhLun4 BZ8rDIIoOKMljTLjjB4alqJgnu HbWCZ7jB7jETUgCP9fAIUwtXVx tKgwo7OgbIx0hZHiFBmzCSWkUg feH1ysYPXdpokvLMXcWd8mWHKi Q7WbmnGcOQBvCGTkGGekTnFhML RvTfToml3seyHsKKvtTQLcINQz rRdkrFOid0kqeugkgYRqXU27SY P9QGYiahXblR0obRzmawWoIlSl dFApzBWiw5bquPEemXOaAALmlN mxcCHqWM0iO40ePHA1o241PDns kPWpKDEkzfYsh3TnKU6uGWIwtG 6huBsnoiYkNmB0XDAtpY2noOGj pLI4oLChXU64BIAmVAqdQGgims t4eZvgXm83HDZvARdmFPTcCP1f dGVyKSBhbmQgcHJveGltYWwgY2 2ua56uFAKzBUNxIWjmIRywdbi7 aCwgNCBjbSBpbiBkaWFtZXRlci nzDIUSr0UeLui7MVQ3uRPzFSYx rpZrjOVmGHDxn2SweWOfaUDdHe XbyVUqfQHwr1dazRC2tXrrwEQf RTWenBXnfwQ9VFLcRMofSUqtzg w0eRAvdpDxKjOcmDSuotEfwJMv MWOhvqH4rOyccCEmlcZnGBwciq EnhBG9kdQ9zQBvH4TxuE4kQMDW sBXbyMHnpHjmSStqxBDqE0jdWD lqKLKqWJWaAOEdjvGcx3AflRh2 lXNiBMkyfS0cDxhoL3prVjPdEH AZyTClPHjtbPScZV9dptgxgpGo ieHbxDV9WVGrMD9wHBZ9Tk2wnO OcBONqtyNdlG7bjwLUYi1qBOIf CYFxTAVgsY4xXTGlp42ptOzvWZ QhrSDjIYVta2ZktVUyoDArJsG3 hUUtw25xiJnlKj54ZWphOFMeNK TwWZJjFKCouuWjs2LxeEs0zDGc YXbmVGSpj7XjmwPHEvGktpKaVn CfRDQSoSIvA7UpIGrsqYTjdxFh tcEec2FcuADkUQBnoBLmaCmvCN SmhQazCGSspRRsey9qOBZkJXLw nD9gGMM0GV4po0OjpDUcjFEexA GkQ2siNfNzLOtjBJFfl5Knj2Zm pUJfEB43GNFdAxEhTBRebK5pkH Gup6gzzxCzDJKhXAYytZVfyLD3 OQPlIdlpB8pxXrWwAZHHh0BaZe h8OOJiiaFuvUXpruWzxSNdkaBt u0WanTIvqwTfYwfdXU8iOQJtIE RoLUbbSUUqO22cIesiKA13SBGd rz8wZWejcGOwf9EiuK2hIDFdp4 3aUFPtICOfZRXnpJQnDDYbb4Rx cI4lbNbeIABgDQOdk5hbkaXysN azWKUiU24vbzEns3Czr10amAwf Lb64CKwymBIuWZVeQCFfOL8vBZ GzhDOpfEWhhM9kYOPtUqu7IJ4a RLDciUBsp7LpxTN5aHUyTLWnD9 Tzm32iRI2lOVLseX5mXQwlhIzw u2Uts8CtpNUqbaFugQGxjJLryW WdeHK0rD2cwwK3rJBsREDuuZZt jL1qSQHkQQNyTEk8dA6wCYjwq6 0qnRkoSy26JZrxJKVkWWF3Yd0m dFKgZUKxrlRtfC6xe1PqCfOlJF 5gCDV8CiVuDAigSFRcI7GmNH8l o7QnCWZcWHOkqdJ2hvYwxxJkGI QxvK19kcU4xWAuDJP9VBLkBSHh b6WloAWgvOCiMbMnyNDlfTCgk2 nbtCJjqiThaE9rb9tvkZuoxF20 h8d3SFDeuIAecKCqs6OqsJSbiP RoKPWiAaTrC3YadKajxwTrj1Om yLhpWOC7pP4kSRpbaQdkhPfkFL 36U32dAQtsa0WvGfOyMPItNuI1 oDWgNFUvLQRlknEfb01vzUyiKw 29LLisGQLuIFH2Or5ipESvJFUq pL6yt2PpFnuyQI2gLUH7EcUwWM nmMDRmmS8nGGndCFBnTM9zo7Sl wsRhCwEpL1g2wPpeTWGcKWRuTX A7qHpqYCDzNLHljaVcaL5gwVay MVoyOU2wIPMpnYR9THu5GBmnvM hlcmUgaXMgYSByYWlzZWQsIGFu ejYxBXDqUBsbrU0bfdstI4crYW 2nj4SaoUTuwM7nQDkwfYViBA2m NDJ9dcVrVXXtCDAyDOmvKDnwOR N6LZC9YNYisPYjb7jswx5ePTNn eLRrDYKqRQVcmaF6qrHgagSuWB FycF96fhLnejEhwFoqb1HsnCG4 vFJbEo03TZavy9SmkS6aFVTmXC e5hN4uIVnxlvDexhEzIY82CBKk nuKol7KzaCdzzyFid5MsnVVjl2 NxPVXwLBB0Lx8bsZZdGGSxcZ7y z3FuBdAwDACtIEJESWWuTEAGmU AtUtQwq4utq9AzLKBmy2lakewm HD39N24pXFCuvgNqfac6pJKuNX DkuMNdVbC8JEMay8fpDB8mWOQq UZa7hO6oRMwaoG4fpYWnJN8oXT 4if4CtwIPpbE8mbg9lVMPsvNVe q2BxxIW0dLXbXFGrA7Xib52kOE 6eMKKgD4vzfb14dxLsFb96BYio y8EbdICwsoQze2CpdWg7vANnFU Wfn4IqEIHgFn1qEVDaPZUkJIWe zyBfpjmwLOOwrCQzt4XgmZkyz8 PgXMccDDKiFY9dj1ZygHKpWTQc Tj5cWDr5eEUeYR7xKPBjriC1hk mhkuNnLySvHxIiDZWdoF4ky4ba zGGpvFczgNlzlj8yDSNpsJSzC6 NvVL4cLfV7FLMqcXZaq5FboLS3 iKZeTESbY0Qlx40lUJ8kNFLzLY EkFMCjpyJxrRP3aNPtOPq6lSYx ID9gCKKjQyRjIcE6HRNzxA2oo1 kztHOlbNdoaMhxdr2nXHZmXRTD GOKkTgGrg7XfkOInDURaoS2jbV Uun4Qczm5vWkP1YQSixZ5ea2po tYTyyHojmHoxks4dYWAadBPiF3 GkAU2pPwZ0TAKzqL4kf5uxtAZi eXegeGzorc6pOMEaGCEaPLA8gK JvdWdoIEIyOSBhZGRpdGlvbmFs MDe1rPDsWY5jOIDdKxgbGMDckS PpXQiVSSHtdbZZek3fkiLvxGYy jK5ptQltxxRwVRThw5JfWRVxJN E1US1rdqTfbKGhXVHLt8WbxFKc hSMeWHAuUUXYfAHfq31kjhOHhz HzhJAzUKYdu3MeGBkcCCYKKIZ8 NLpoR7guRSC3 [facility] Work Phone: Pathology report microscopic observation Narrative Other stain v1tvhIHaNZLkeCCdEeYgRMQxAX Naa6tiOLXvkWIiShLcWrAcQuZt VjopvKIkSPLpRyNep3ydd848lF Uwq6loLEWyMlJ7aTCqGIHxcSYp A771BYUzQKvnc6pev3YfRVVbuQ Vby6B6RGYCqjngeCd6gHomQ55y v9I0JvzbY8oaWFHvOZMhK8LfJQ 0hTKImWxk5VBR2FIC7STBrKMPs Y0IpOX6dWKUvlNIfXOd2c0jcwX yzNHXkOWI7n3scJGkjnlNwLU2v hz5iePg4m7vaqiNyLPNxSDKseP JRLIFqS0RifFreKi9nfIf2tTez KbnwOHQ4Cdy4XZ6bmq36iji7dL qgWGJibqgaGxM9HGuyCBHucdyl ISv6NNbqKNZibIF4DOElbYAmX4 EiODRaRD2oeby5IPJ7RHadGHOy UqO9QETbwWMmAPHbqVcyTYulx6 04HHL7SzIcPV7hW0Gyg6F7zI5c yRBbFGMvbHObFoNeTLCjym0mtG HjSLawi1OxOPW5meY3yZAtzQNs GJUaEL05Erbtq6PeWpcxEIO8TG IfjzOay9Rgv8xfOiBeejCvO6sq W2SaURKdVVLnJYQnWvUasqNkr7 Mfz2GstNZuyDw4k3paEUIoJJRv tJobb8pyBNF8ESEiP3O0aQThy7 irBRheMBJmwRM2ugK4JMXbhBMa J0PjtB3pNLAqFL4qcfh5c9uePK T1YCfoHISoCzC5knI4AODihBPj SLQpoYfiKVzpj271MKM8MgZwFJ Ybq0YbR2SshQmeR37lxOzfH44y TCLxnFxhzN3gaPymfS5cIbZkLi MyNFxxbFxwbGFpblxmMVxmczIw OLdyxqxmTWPjTLibH8qtFxXyWC WrnFnxIHvzd7UbWDYoOHAgBeRy HZugul2nL90pdCAdWFquwRptAF Jbh18cqYHtqWFfHq1kiPStSnuo YXJ9 [facility] Work Phone: [facility] Work Phone: XR ABDOMEN /KUB/FLAT PLATE/1 VIEWon 10-26-2023 XR ABDOMEN /KUB/FLAT PLATE/1 VIEW EXAMINATION: XR ABDOMEN /KUB/FLAT PLATE/1 VIEW 10/26/2023 9:57 AM HISTORY: ORDERING SYSTEM PROVIDED HISTORY: nausea, ileus, TECHNOLOGIST PROVIDED HISTORY: Illness/Other Reason for exam: nausea, ileus Cancer History: no Surgery, RadiationHistory: no Encounter Type: Initial Additional signs and symptoms: Shortness of Breath ORDERING SYSTEM PROVIDED DIAGNOSIS CODES: J96.01 Acute respiratory failure with hypoxia (HCC) D64.9 Anemia, unspecified type R06.02 SOB (shortness of breath) COMPARISON: CT chest, abdomen and pelvis, 10/20/2023. FINDINGS: Supine image of the abdomen and pelvis performed. Gas is scattered through the abdomen including small bowel and colon. Loops of small bowel measure up to approximately 4.5 cm diameter. Skin indio project over the lower abdomen. IMPRESSION: Gas-filled loops of small bowel and colon suggesting ileus. Follow-up imaging is suggested to confirm resolution. [facility]/josephine Workstation ID: [id number] Dictated by: EFREN BECK on ThuOct 26, 2023 12:39:05 PM EDT Transcribed by: REKHA RODRÍGUEZ on ThuOct 26, 2023 12:58:07 PM EDT Finalized by: EFREN BECK on ThuOct 26, 2023 1:13:35 PM EDT [facility] Comment on above: Order Comment: Injur y/Trauma or Illness?:Illness/Other How long have you had these symptoms (acute/chronic)?:Acute Reason for exam?:post-op port placement History of cancer?:no Surgeries, chemotherapy, or radiation?:no Type of Exam?:Initial Additional signs and symptoms?:. XR Chest View and Abdomen [place] 10-26-2023 GE RIS GE RIS [facility] Radiology Study observation (narrative) [facility] XR Chest View and Abdomen [place] and UprightOrdered By: Efren Beck on 10-26-2023 [facility] Work Phone: Basic metabolic 2000 panelon 2023 Anion gap [Moles/Vol] 10 mmol/L 10 - 2 0 mmol/L [facility] Calcium [Mass/Vol] 8.8 mg/dL 8.4 - 10. 2 mg/dL [facility] Chloride [Moles/Vol] 94 mmol/L Low 98 - 10 8 mmol/L [facility] Creatinine [Mass/Vol] 0.84 mg/dL 0.80 - 1.30 mg/dL [facility] GFR/1.73 sq M.predicted CKD-EPI (S/P/Bld) [Vol rate/Area] 90 - PINF [facility] Glucose [Mass/Vol] 158 mg/dL High 65 - 99 mg/dL [facility] HCO3 [Moles/Vol] 37 mmol/L High 21 - 32 mmol/L [facility] Interpretation and review of laboratory results Abnormal [facility] Potassium [Moles/Vol] 4.1 mmol/L 3.5 - 5.1 mmol/L [facility] Sodium [Moles/Vol] 137 mmol/L 135 - 145 mmol/L [facility] Urea nitrogen [Mass/Vol] 16 mg/dL 8 - 25 mg/dL [facility] Urea nitrogen/Creatinine [Mass ratio] 19.0 mg/mg 10.0 - 20.0 [facility] CBC panel Auto (Bld)on 10-24 Erythrocyte distribution width (RBC) [Entitic vol] 29.2 % High 11.6 - 14.8 % [facility] Hematocrit (Bld) [Volume fraction] 32.0 % Low 41.0 - 53.0 % [facility] Hemoglobin (Bld) [Mass/Vol] 8.2 g/dL Low 13.5 - 17.5 g/dL [facility] Interpretation and review of laboratory results Abnormal [facility] MCH (RBC) [Entitic mass] 20.6 pg Low 26.0 - 34.0 pg [facility] MCHC (RBC) [Mass/Vol] 25.6 g/dL Low 31.0 - 37.0 g/dL [facility] MCV (RBC) [Entitic vol] 80.2 fL 80.0 - 100.0 fL [facility] Nucleated RBC (Bld) [#/Vol] 0.00 10*3/uL [facility] Nucleated RBC/100 WBC (Bld) [Ratio] 0.0 % [facility] Platelet mean volume (Bld) [Entitic vol] 9.4 fL 9.4 - 12.4 fL [facility] Platelets (Bld) [#/Vol] 277 10*3/uL [facility] RBC (Bld) [#/Vol] 3.99 10*6/uL Low [facility]ld[facility] [#/Vol] 6.70 10*3/uL [facility] eah [facility] Glucose (Bld) [Mass/Vol]on 0 2023 Glucose [Mass/Vol] 229 mg/dL High 65 - 99 mg/dL [facility] Interpretation and review of laboratory results Abnormal [facility] Glucose [Mass/Vol] 184 mg/dL High 65 - 99 mg/dL [facility] Interpretation and review of laboratory results Abnormal [facility] Glucose [Mass/Vol] 220 mg/dL High 65 - 99 mg/dL [facility] Interpretation and review of laboratory results Abnormal [facility] Glucose [Mass/Vol] 162 mg/dL High 65 - 99 mg/dL [facility] Interpretation and review of laboratory results Abnormal [facility] Basic metabolic 2000 panelon 10-24-2023 Anion gap [Moles/Vol] 10 mmol/L 10 - 2 0 mmol/L [facility] Calcium [Mass/Vol] 8.8 mg/dL 8.4 - 10. 2 mg/dL [facility] Chloride [Moles/Vol] 96 mmol/L Low 98 - 10 8 mmol/L [facility] Creatinine [Mass/Vol] 0.90 mg/dL 0.80 - 1.30 mg/dL [facility] GFR/1.73 sq M.predicted CKD-EPI (S/P/Bld) [Vol rate/Area] 89 - PINF [facility] Glucose [Mass/Vol] 186 mg/dL High 65 - 99 mg/dL [facility] HCO3 [Moles/Vol] 36 mmol/L High 21 - 32 mmol/L [facility] Interpretation and review of laboratory results Abnormal [facility] Potassium [Moles/Vol] 4.1 mmol/L 3.5 - 5.1 mmol/L [facility] Sodium [Moles/Vol] 138 mmol/L 135 - 145 mmol/L [facility] Urea nitrogen [Mass/Vol] 21 mg/dL 8 - 25 mg/dL [facility] Urea nitrogen/Creatinine [Mass ratio] 23.3 mg/mg High 10.0 - 20.0 [facility] CBC panel Auto (Bld)on 10-23 Erythrocyte distribution width (RBC) [Entitic vol] 29.1 % High 11.6 - 14.8 % [facility] Hematocrit (Bld) [Volume fraction] 29.6 % Low 41.0 - 53.0 % [facility] Hemoglobin (Bld) [Mass/Vol] 7.8 g/dL Low 13.5 - 17.5 g/dL [facility] Interpretation and review of laboratory results Abnormal [facility] MCH (RBC) [Entitic mass] 20.7 pg Low 26.0 - 34.0 pg [facility] MCHC (RBC) [Mass/Vol] 26.4 g/dL Low 31.0 - 37.0 g/dL [facility] MCV (RBC) [Entitic vol] 78.5 fL Low 80.0 - 100.0 fL [facility] Nucleated RBC (Bld) [#/Vol] 0.00 10*3/uL [facility] Nucleated RBC/100 WBC (Bld) [Ratio] 0.0 % [facility] Platelet mean volume (Bld) [Entitic vol] 9.4 fL 9.4 - 12.4 fL [facility] Platelets (Bld) [#/Vol] 291 10*3/uL [facility] RBC (Bld) [#/Vol] 3.77 10*6/uL Low [facility] WBC (Bld) [#/Vol] 8.17 10*3/uL [facility] Glucose (Bld) [Mass/Vol]on 0 10-24-2023 Glucose [Mass/Vol] 191 mg/dL High 65 - 99 mg/dL [facility] Interpretation and review of laboratory results Abnormal [facility] Glucose [Mass/Vol] 189 mg/dL High 65 - 99 mg/dL [facility] Interpretation and review of laboratory results Abnormal [facility] Glucose [Mass/Vol] 255 mg/dL High 65 - 99 mg/dL [facility] Interpretation and review of laboratory results Abnormal [facility] Glucose [Mass/Vol] 173 mg/dL High 65 - 99 mg/dL [facility] Interpretation and review of laboratory results Abnormal [facility] Basic metabolic 2000 panelon 10-23-2023 Anion gap [Moles/Vol] 11 mmol/L 10 - 2 0 mmol/L [facility] Calcium [Mass/Vol] 8.9 mg/dL 8.4 - 10. 2 mg/dL [facility] Chloride [Moles/Vol] 96 mmol/L Low 98 - 10 8 mmol/L [facility] Creatinine [Mass/Vol] 0.96 mg/dL 0.80 - 1.30 mg/dL [facility] GFR/1.73 sq M.predicted CKD-EPI (S/P/Bld) [Vol rate/Area] 82 - PINF [facility] Glucose [Mass/Vol] 151 mg/dL High 65 - 99 mg/dL [facility] HCO3 [Moles/Vol] 36 mmol/L High 21 - 32 mmol/L [facility] Interpretation and review of laboratory results Abnormal [facility] Potassium [Moles/Vol] 3.8 mmol/L 3.5 - 5.1 mmol/L [facility] Sodium [Moles/Vol] 139 mmol/L 135 - 145 mmol/L [facility] Urea nitrogen [Mass/Vol] 25 mg/dL 8 - 25 mg/dL [facility] Urea nitrogen/Creatinine [Mass ratio] 26.0 mg/mg High 10.0 - 20.0 [facility] CBC panel Auto (Bld)on 10-22 Erythrocyte distribution width (RBC) [Entitic vol] 29.1 % High 11.6 - 14.8 % [facility] Hematocrit (Bld) [Volume fraction] 31.7 % Low 41.0 - 53.0 % [facility] Hemoglobin (Bld) [Mass/Vol] 8.4 g/dL Low 13.5 - 17.5 g/dL [facility] Interpretation and review of laboratory results Abnormal [facility] MCH (RBC) [Entitic mass] 20.6 pg Low 26.0 - 34.0 pg [facility] MCHC (RBC) [Mass/Vol] 26.5 g/dL Low 31.0 - 37.0 g/dL [facility] MCV (RBC) [Entitic vol] 77.9 fL Low 80.0 - 100.0 fL [facility] Nucleated RBC (Bld) [#/Vol] 0.02 10*3/uL High [facility] Nucleated RBC/100 WBC (Bld) [Ratio] 0.2 % [facility] Platelet mean volume (Bld) [Entitic vol] 9.5 fL 9.4 - 12.4 fL [facility] Platelets (Bld) [#/Vol] 333 10*3/uL [facility] RBC (Bld) [#/Vol] 4.07 10*6/uL Low [facility] WBC (Bld) [#/Vol] 11.76 10*3/uL High [facility] Glucose (Bld) [Mass/Vol]on 0 10-23-2023 Glucose [Mass/Vol] 239 mg/dL High 65 - 99 mg/dL [facility] Interpretation and review of laboratory results Abnormal [facility] Glucose [Mass/Vol] 205 mg/dL High 65 - 99 mg/dL [facility] Interpretation and review of laboratory results Abnormal [facility] Glucose [Mass/Vol] 244 mg/dL High 65 - 99 mg/dL [facility] Interpretation and review of laboratory results Abnormal [facility] Glucose [Mass/Vol] 158 mg/dL High 65 - 99 mg/dL [facility] Interpretation and review of laboratory results Abnormal [facility] Basic metabolic 1998 panelon 10-22-2023 Anion gap [Moles/Vol] 14 mmol/L 10 - 2 0 mmol/L [facility] Chloride [Moles/Vol] 100 mmol/L 98 - 10 8 mmol/L [facility] Creatinine [Mass/Vol] 1.06 mg/dL 0.80 - 1.30 mg/dL [facility] GFR/1.73 sq M.predicted CKD-EPI (S/P/Bld) [Vol rate/Area] 73 - PINF [facility] Glucose [Mass/Vol] 290 mg/dL High 65 - 99 mg/dL [facility] HCO3 [Moles/Vol] 31 mmol/L 21 - 32 mmol/L [facility] Interpretation and review of laboratory results Abnormal [facility] Potassium [Moles/Vol] 4.2 mmol/L 3.5 - 5.1 mmol/L [facility] Sodium [Moles/Vol] 141 mmol/L 135 - 145 mmol/L [facility] Urea nitrogen [Mass/Vol] 26 mg/dL High 8 - 25 mg/dL [facility] Urea nitrogen/Creatinine [Mass ratio] 24.5 mg/mg High 10.0 - 20.0 [facility] CBC panel Auto (Bld)on 10-21 Erythrocyte distribution width (RBC) [Entitic vol] 27.5 % High 11.6 - 14.8 % [facility] Hematocrit (Bld) [Volume fraction] 30.1 % Low 41.0 - 53.0 % [facility] Hemoglobin (Bld) [Mass/Vol] 7.9 g/dL Low 13.5 - 17.5 g/dL [facility] Interpretation and review of laboratory results Abnormal [facility] MCH (RBC) [Entitic mass] 20.1 pg Low 26.0 - 34.0 pg [facility] MCHC (RBC) [Mass/Vol] 26.2 g/dL Low 31.0 - 37.0 g/dL [facility] MCV (RBC) [Entitic vol] 76.6 fL Low 80.0 - 100.0 fL [facility] Nucleated RBC (Bld) [#/Vol] 0.02 10*3/uL High [facility] Nucleated RBC/100 WBC (Bld) [Ratio] 0.2 % [facility] Platelet mean volume (Bld) [Entitic vol] 9.7 fL 9.4 - 12.4 fL [facility] Platelets (Bld) [#/Vol] 324 10*3/uL [facility] RBC (Bld) [#/Vol] 3.93 10*6/uL Low [facility]alth WBC (Bld) [#/Vol] 12.74 10*3/uL High [facility] Glucose (Bld) [Mass/Vol]on 0 10-22-2023 Glucose [Mass/Vol] 141 mg/dL High 65 - 99 mg/dL [facility] Interpretation and review of laboratory results Abnormal [facility] Glucose [Mass/Vol] 150 mg/dL High 65 - 99 mg/dL [facility] Interpretation and review of laboratory results Abnormal [facility] Glucose [Mass/Vol] 242 mg/dL High 65 - 99 mg/dL [facility] Interpretation and review of laboratory results Abnormal [facility] Glucose [Mass/Vol] 296 mg/dL High 65 - 99 mg/dL [facility] Interpretation and review of laboratory results Abnormal [facility] Tissue ExamOrdered By: Neftali leo on 10-22-2023 Case Report [facility] Work Phone: Clinical information [id number] wNVxhbn RbHTEogWUbD1MbnaqgXFxsNO3i NX9rfLjuqFOjxNStPXTdWuXno6 mfb652uTGfh9puBFKBgxnoxSu2 fOwrQ10ue9K8FtdrR5xzFOVcLG sgOLTwCZfnuPGaDYn7NCYtrMMp osDlNeCrJBWlaUCdqXR7IVEhGM 0cdfueAUjmLSezBTNrkwB2JIWt vAJhB2EuOJKbZN9sfxjsDFY5YN vnOLXsWHV2IcSxYDYup3Cmonu1 MjBccGFyZFxwbGFpblxmczIwXG WuNDPVoe3cSELkTnakrDCyK4sp CJ8dgEkpJJFeSGClRNLxrq6= [facility] Work Phone: Pathology report final diagnosis Narrative e2cxsRIfVNSfuCJoSCChXBnbso WuGBDaxWVfM1RhcuhrZRvlLJ4i OU9xlZicaJSylGBlJAOjHzNrp7 qcw946dDCub1hiOURWpgkosSk7 sImtR33tv8A5YuodV80ttKKxVV U2WEIuBAYunBFtSMYxVFR4WWYf zBAqK4tyHXYjGV9ugvwnRNkhBV ioPFMewZG3EWIwyKUoT3AfIAFr VOzwSUIhqtr5VrNbUs8zsWLtqS cyMFxwYXJkXHBsYWluXGJcZnMy LXNTVyBmU26fx28nSXIhF1HvJQ 7dc6AuWUMmy5HamGetzCDrTPnf NzIwXGxpbjcyMFxiMCBJbnZhc2 e1CSScQYVzh3CxqnJzws7oOZhb s8DxBHSzeI5exhNrTDLaoivcKK SurIVQd54vEP09AdAvPGWoMATu VEQsYAPgkJLdzDKpvNueJY1jFM FeQILilmWes0y9DVHuSVQqd3Ra kqEugi0gLASftxL4fLKgo5TmwL cwUTOABXDiz5V6RVardwR9dMuu IGJlIGRlZmVycmVkIHRvIHRoZS GaMUXeG3Jgl62na0WhA2pwAY9c XHBhcn0= [employer] Work Phone: Pathology report gross observation Narrative t8yzzGGcKYPkvIHhMUNtQZqlbu JrZRFuyPShA8QjsjdoAMvvTX7l EH4lnFwwmKHevEOgXOXkPnGwi0 qkt191vBJwc0ahFGBExxoqnUl8 gVmmK03ho5D8ZhmyG52nbMFxKR B2ZDNiNKFfoCKsEJRbTHA5LMTq tIFqP9ocTKKuQA0lsmrkOHxyYO taFGPpvIV3BUEsxXNyH4RgTJPe PIvdZEXmswr1FgJrGd1cuFMniE twVRcgV5vvsW3fCqV3IYtvW5wg tP8kLOy4XFioMBWaxLI9maP8ZX RixPObZ4HahK8rROIgGD2yvkk9 y0mpHVN8THdqEHWfIrN4hwX1LS BccGFyZFxwbGFpblxmczIwXHBy o0OuI2K2RUUjPGmiz1ztXXNzYH ifr3FoYQqRIAWMHZ9QDG4gdOL9 TNrUZOIYR6lBrRC2CxB1lLL5BN 27JQNaBINbjDCrWKotL629MKln BovypKQ1FRmmXwkavS6vnHASTI ZDNwxDBbaajoMhIT0VBDRUPT3H iIL9JlV8fCA4BS44MVDiXRGmkV UwBFjeC061CHYxSXkmJZCrBbZr OaBLLEWwpCPfSIRsdnVbu7GgEV qibaesEEUgpEloGWPoKULfK57r a15mMTOgS0YwNTHwt9VruKUxHY voxk17OAW0n8jinJJmJTrqCkor pUBdaaB9HPxWKNIXEGiUTaGmDS 2mUTdAK1WCHJwVGvgwNJB6BVoa cKO1p0xoiPWav4q1RLpeVFC4uF MfMKNwa2islMPlBQsrGpemqOWp jcR5IYkTGWDAJQqANlTdTK3tJU hHX5TZJbI8ErDiJCX9RcthpSyo OxyrdoXkuVIvNnDlwH0ywKjqwS 0pUuIaPQGrvLUnXYQqPMjeTC40 CNUtNN5bMCPgf3U6ETTlXMRdvZ DdyqmlID45FVajYH63LVzxAT1i VNItUCTop5IvC5M1ZKRoCBlhf2 nnFZQuBVdaz4YpGVlNWGIQWC7V LI4hpSS8CKrISJEND6jVzKQ4XF JxtTZ4R326DOKsZSMlfDDrCNag W384HMkvQSOrW3CdL5N6EZ25GH RwRMxis6trEMOmXDizr6OoZIeG YVVYEU5JJI0koZP2CGfRGBTPDR joQVI8A8buqYY8t9muqLZra3m9 DTuvUXE6uHxteGElrqpgfnBbVO YkTC07JEtqmMVrdOSzfMZ5OBJn xM8yQUZnTJDhDMT8YEhuTY9lsV ThHPTkrzSFYRvgEKRhX8Ozu5Hn ULuuqLnmVAIwc49ygPOxSz4bnD GiHUZ1UlRLNR5oOizdvMSdXE1e eUu1NUelJQXrTnFsC0lze6XfEK EzINGvqpMcMK4wrtNneDCkQEin G8ftUSZ8OZEpwJTcVJXiX70FFf SIOZSAW22YGGMAYYXNF0LPK5jJ LIE1SaN5tDS6ZT2kMPB1WQiySH reUoAvZMM2Fy3dLQRIKHWSISsU WD2SGPLWMROUBP2BWtLcI6kHOY KULuNvSUZNPLBJIDJkRsIXCA4m R4sITETZDgAySMLEIBUJTEUlIC 9XQGOJFMMNOO6ELGUGF29AXINS YQIQS8MIP3mQIMPhp5AiyrS8NF rjXpAraVKci6MWjcLqSrGhIO46 MeV0MLCoTO3zCKvYXAShkmKgV4 ooKLejaNX5DoFsVADqxGKVNKMP KNcWMIKLKv1WIOTWYDHJJG6ZIm XtA0WICY1RAj0IKUETXLHVSM0H ZUuGOaMmE9ANVH4DXm8GWTHWBV NUFU1KAuQcIJWZJ7QBCkBSE5fz XGURWRVKQOIoKkCMRP8gRTZBPK 8QMIVLZSPOY44BCBHERQLCX4JC RH0= [facility] Work Phone: Pathology report microscopic observation Narrative Other stain b8lhhBMkVQUyjYPpGyUrOESnQG Shr5wkVQPlwUKfCvQsSaJeBkHu WgbxzFEwLNSgZcSdd1mja636cF Wle4ojAJKaHuM2qGMvIOTdrBYh F822PDTzEGwik4wli5PhMSFteJ Xpz1J8IXPKmeeyrWs7oTouM34g r4F0XcqeI9lwVQFhYUNyK9PsMP 1pFDRkVok6VJX9KPC6GMVwQISs B7AwNF9xUWEiaVKnCSl6a7nujT unSILrAPO1i0pqDQxlgaMcGO4b nk1mpJs5h3ecjgWgIZPrGJHrnA ELQMGxQ2WvqPqiOp7vaYd5vTva TxdzFKQ0Hrk1BK9emr64ikp3lL wbWFHqcqmqTtE4UHckPORqjfch ZRe1JLuwDYHmwSI8BRKfeSEyG6 UgJMKzOW5exdi0JLZ6NPniJUWd QvI7HYWomDOtPXQhdBegTStax5 46JGO2RgKhOD1fC4Jha9I6kI8u aHItRDMqoXGvTvNsEVEqik8csA RfODgyg1HoDUY9avP5kBQudNZj CHJbDD28Lnold0SnGodrVJY3CD JfnzSvz0Tfr0etMtGlknRtF2mw O9LlMLFeVZDbGNGhKoZqeiZgl4 Gam9VizMVfbXa8l2ndRUQpHSDw sMgsj1rgUKU8CWRfU6A2vFEmu0 akZHfcXOBqoLT1woX0PJFzjTCc I9VqfB8vWDRtQR1iqwn7v9gfAF G8OYprBQWdKsG2pmL3IENpqWWk FVYgrHnsVEinn384VWG4IoPdPZ Ozr7ShF3TohTatN36tuFklS32t PVRawUzwsJ3tnKjclX2uJgJwIy MyNFxxbFxwbGFpblxmMVxmczIw BKauwbwsVJAsIUqoH6mwUnWhCD KlcSdrKAyvf6PwIMRbHLAwOcKu WMlksy5jG50rjXCeCCznsDskID Xwm30vsEZlvMQgId9toXPhTquo YXJ9 [facility] Work Phone: [facility] Work Phone: ECHOCARDIOGRAM COMPLETEon ECHOCARDIOGRAM COMPLETE Patient Info Name: DIPTI SIERRA Age: 77 years : 1945 Gender: Male Ht: 170 cm Wt: 104 kg BSA: 2.26 m2 HR: 80 bpm BP: 128 / 69 mmHg Heart Rhythm: Sinus Rhythm Technical Quality: Fair Exam Date: 10/21/2023 8:12 AM 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 Left ventricular chamber dimension is normal. 2. Left ventricular systolic function is normal with an ejection fraction by Biplane Method of Discs of 58 %. 3. The left ventricular diastolic function is normal. 4. Right ventricular chamber dimension is moderately enlarged. 5. Right atrial chamber dimension is enlarged. History/Risk Factors Hypertension: Yes Dyslipidemia: Yes Obesity: Yes Coronary Artery Disease (CAD) Yes Diabetes Mellitus: Yes Tobacco Use: Never Procedure(s): Complete two-dimensional, color flow and Doppler transthoracic echocardiogram is performed. Left Ventricle Left ventricular chamber dimension is normal. Left ventricular systolic function is normal with an ejection fraction by Biplane Method of Discs of 58 %. Normal left ventricular mass. Left ventricular segmental wall motion is normal. The left ventricular diastolic function is normal. Right Ventricle Right ventricular chamber dimension is moderately enlarged. Right ventricular systolic function is normal. Left Atria Left atrial chamber is normal with a left atrial volume index of 30 ml/m2 by BP MOD. Right Atria Right atrial chamber dimension is enlarged. Aortic Valve The aortic valve is poorly visualized. There is no aortic valve stenosis. There is no aortic valve regurgitation. Pulmonic Valve The pulmonic valve is not well visualized. Mitral Valve The mitral valve has normal leaflets. There is no mitral valve stenosis. There is trace mitral valve regurgitation. Tricuspid Valve The tricuspid valve leaflets are not well visualized. There is no significant tricuspid valve stenosis. There is trace tricuspid valve regurgitation. RV systolic pressure could not be accurately estimated. Pericardium/Pleural There is no pericardial effusion. Inferior Vena Cava Normal inferior vena cava with >50% collapse upon inspiration consistent with normal right atrial pressure. Aorta The aortic measurements are indexed to age and body surface area. The aortic root is normal measuring 3.2 cm with an index of 1.4 cm/m2. The proximal ascending aorta is normal measuring 3.1 cm with an index of 1.4 cm/m2. Left Ventricular Outflow Tract Name Value Normal LVOT 2D LVOT Diameter 2.1 cm LVOT Doppler LVOT Peak Velocity 1.2 m/s LVOT Peak Gradient 6 mmHg LVOT Mean Gradient 3 mmHg LVOT VTI 28 cm LVOT VTI/AV VTI Ratio 0.9 LVOT Stroke Volume 92 ml LVOT Stroke Index 40.81 ml/m2 Pulmonic Valve Name Value Normal RVOT Doppler RVOT Peak Velocity 57 cm/s RVOT Peak Gradient 1 mmHg RVOT Mean Gradient 1 mmHg RVOT VTI 14 cm PV Doppler PV Peak Velocity 0.85 m/s PV Peak Gradient 3 mmHg PV Mean Gradient 1 mmHg PV VTI 15 cm Mitral Valve Name Value Normal MV Doppler MV Peak Velocity 0.97 m/s MV Peak Gradient 4 mmHg MV Mean Gradient 2 mmHg MV VTI 30 cm MV Decel [place] 237 cm/s2 MV PHT 83 ms MV Area (PHT) 2.6 cm2 4.0-5.0 MV Area (Cont Eq VTI) 3.1 cm2 MV Area Index (Cont Eq VTI) 1.38 cm2/m2 MV DVI 1.07 MV Diastolic Function MV E Peak Velocity 0.68 m/s MV A Peak Velocity 0.68 m/s MV E/A 1.0 MV Decel Time 288 ms MV Annular TDI MV Septal e' Velocity 10.7 cm/s >=8.0 MV E/e' (Septal) 6.3 <=8.0 MV Lateral e' Velocity 17.4 cm/s >=9.5 MV E/e' (Lateral) 3.9 <=8.0 MV e' Average 14.09 cm/s MV E/e' (Average) 5.1 <=13.5 Tricuspid Valve Name Value Normal ------- (more content not included)... Normal [facility] ETT Airwayon 10-21-2023 Niles Chapman, AA 10/21/2023 12:42 PM ETT Airway Mask ventilation: ventilated by mask Technique: video laryngoscopy and intubating stylet Type: cuffed oral Tube size: 7.5 mm Final laryngoscope: video laryngoscope 4 Bishop Location: oral Final grade: 1 Insertion attempts: 1 Placement verification: end tidal CO2, auscultation, symmetrical chest wall movement and cuff palpation Secured at: 24 cm (measured from the lips) Secured by: tape Bite block: none Lip/tooth/tongue trauma: no Comments: Darin Jarquin [facility] Echo CompleteOrdered By: Sara Lang on 10-21-2023 Aortic valve area 2.943 cm [facility] Work Phone: AV mean gradient 5.17664 mmHg [facility] Work Phone: [phone] AV peak gradient 9.12562 mmHg [facility] Work Phone: EF 57.5409 % [facility] Work Phone: [facility] Work Phone: Echo Completeon 10-21-2023 [employer] CV [facility] Glucose (Bld) [Mass/Vol]on 0 10-21-2023 Glucose [Mass/Vol] 228 mg/dL High 65 - 99 mg/dL [facility] Interpretation and review of laboratory results Abnormal [facility] Glucose [Mass/Vol] 201 mg/dL High 65 - 99 mg/dL [facility] Interpretation and review of laboratory results Abnormal [facility] Glucose [Mass/Vol] 159 mg/dL High 65 - 99 mg/dL [facility] Interpretation and review of laboratory results Abnormal [facility] Glucose [Mass/Vol] 166 mg/dL High 65 - 99 mg/dL [facility] Interpretation and review of laboratory results Abnormal [facility] Hemoglobin and Hematocrit pa harvey (Bld)on 10-21-2023 Hematocrit (Bld) [Volume fraction] 31.0 % Low 41.0 - 53.0 % [facility] Hemoglobin (Bld) [Mass/Vol] 8.5 g/dL Low 13.5 - 17.5 g/dL [facility] Interpretation and review of laboratory results Abnormal [facility] Hematocrit (Bld) [Volume fraction] 31.9 % Low 41.0 - 53.0 % [facility] Hemoglobin (Bld) [Mass/Vol] 8.7 g/dL Low 13.5 - 17.5 g/dL [facility] Interpretation and review of laboratory results Abnormal [facility] Hematocrit (Bld) [Volume fraction] 30.4 % Low 41.0 - 53.0 % [facility] Hemoglobin (Bld) [Mass/Vol] 8.3 g/dL Low 13.5 - 17.5 g/dL [facility] Interpretation and review of laboratory results Abnormal [facility] Hematocrit (Bld) [Volume fraction] 28.8 % Low 41.0 - 53.0 % [facility] Hemoglobin (Bld) [Mass/Vol] 8.0 g/dL Low 13.5 - 17.5 g/dL [facility] Interpretation and review of laboratory results Abnormal [facility] NT Pro BNPon 10-21-2023 Natriuretic peptide.B prohormone N-Terminal [Mass/Vol] 712 pg/mL High 0 - 300 pg/mL [facility] Natriuretic peptide.B prohor loc N-Terminal [Mass/Vol]on 10-21-2023 Interpretation and review of laboratory results Abnormal [facility] TISSUE EXAMon 10-21-2023 TISSUE EXAM Surgical Pathology R eport Case: [id number] Authorizing Provider: Austen Hall MD Collected: 10/21/2023 03:56 PM Ordering Location: [facility] Received: 10/22/2023 07:44 AM Pathologist: Kiran Lopez IV, MD Specimens: A) - Liver, Core, liver biopsy out of body at 1602 B) - Colon, Specify Distance, terminal ileum, right colon, mesentary and portion of small bowel out of body at 1620 See attached Amended xT result from [facility]. Addendum electronically signed by Kiran Lopez IV, MD on 11/19/2023 at 1:08 PM See attached PD-L1, xT, xR and MMR results from [facility]. Addendum electronically signed by Kiran Lopez IV, MD on 11/09/2023 at 8:10 AM COLON: ADENOCARCINOMA Procedure: Right hemicolectomy Macroscopic evaluation of mesorectum (for rectal cancer): Not applicable Tumor site: Cecum Histologic type: Adenocarcinoma Histologic grade: G2: Moderately differentiated Tumor size: 10 cm Multiple primary sites: Not applicable (no additional primary sites present) Tumor extent: Directly invades or adheres to adjacent structure(s): Small bowel Submucosal Invasion (for pT1 tumors only) Not applicable (not a pT1 tumor) Macroscopic tumor perforation: Not identified Lymphatic and/or vascular invasion: Not identified Perineural invasion: Not identified Tumor budding score: High (10 or more) Treatment effect: No known presurgical therapy Margins: Margin status for invasive carcinoma: All margins negative for invasive carcinoma Margin status for non-invasive tumor: All margins negative for high-grade dysplasia / intramucosal carcinoma and low-grade dysplasia Regional lymph nodes: Regional lymph node status: Tumor present in regional lymph node(s) Number of lymph nodes with tumor: 2 Number of lymph nodes examined: 31 Tumor deposits: Present (count = 1) Distant site(s) involved: Liver AJCC 8th edition pathologic stage: Modified Classification: Not applicable pT4b pN1b pM1a MMR Studies (performed on current case) MLH1: Intact protein expression. MSH2: Intact protein expression. MSH6: Intact protein expression. PMS2: Intact protein expression. A. Liver, biopsy: Adenocarcinoma, morphologically consistent with metastatic colonic primary. B. Colon, right hemicolectomy: Invasive moderately differentiated adenocarcinoma. See synoptic report. Immunohistochemical stains for mismatch repair proteins (MLH1, MSH2, MSH6, PMS2), performed by image analysis, all show intact protein expression in carcinoma nuclei. These results are consistent with a microsatellite stable phenotype (JOHN). All controls show appropriate reactivity. The Professional Component of immunohistochemistry and/or in-situ hybridization was completed at [facility], [address] [place] [address]. CPT codes: 69078 x 4 Cecal mass suspected colon cancer A. Received fresh labeled liver is a portion of brown soft tissue which measures 0.9 x 0.9 x 0.5 cm. The outer surface is inked blue. The specimen is sectioned and totally submitted in 1 block. B. Received fresh labeled terminal ileum, right colon, mesentery, and portion of small bowel is a right hemicolectomy which consists of a portion of terminal ileum (4.5 cm in length, 2.5 cm in diameter) and proximal colon (41 cm in length, 4 cm in diameter). Notably, there is also a segment of small bowel which measures 5 cm in length and 3 cm in diameter which is adherent to the cecum. The proximal margin is shaved and submitted into block B1. The distal margin is shaved and submitted in block B2. The margins from the adhesed segment of the small bowel are shaved and submitted in blocks B3 and B4. The cecal mass is located approximately 8 cm from the closest mesenteric margin. The closest mesenteric margin is shaved and submitted block B5. Notably, an appendix is not identified. There is significant serosal puckering along the cecal serosa in the area where the segment of small bowel is adhesed. This is inked blue. Vulcan Crewmember sections of colon with serosal involvement by tumor with adhesion to additional small bowel are submitted in blocks B6 and B7. The cecal mass appears to invade into the attached segment of small bowel and possibly involve its mucosal surface. Sections of the tumor with the mucosal surface of the adherent small bowel are submitted blocks B8 and B9. The colon is then opened. Within the cecum, adjacent to the ileocecal valve, there is a raised, annular, hemorrhagic mass lesion which measures 10 cm in greatest dimension. This appears to invade into and through the bowel wall. Additional parts sales representative sections of tumor are submitted blocks B10 and B11. The background colonic mucosa is erythematous but shows no additional polyps or mass lesions. [employer] sections of background bowel wall are submitted block B12. The mesenteric adipose tissue is then stripped for lymp (more content not included)... Normal [facility] Comment on above: Performed By: #### [id number] ####[place] [address] Saeid Platt M.D. [id number] XR CHEST PA/APon 10-21-2023 XR CHEST PA/AP EXAMINATION: XR CHEST PA/AP HISTORY: Injury/Trauma or Illness?:Illness/Other How long have you had these symptoms (acute/chronic)?:Acute post-op port placement COMPARISON: 10/19/2023 TECHNIQUE: Single AP portable chest radiograph. FINDINGS: TUBES AND LINES: Left chest port likely terminates in the caval atrial junction. Enteric tube tip not visualized but is within the stomach. LUNGS: There are bilateral nodular opacities. PLEURA: No effusions or pneumothorax. HEART AND MEDIASTINUM:Stable cardiac silhouette. OSSEOUS STRUCTURES: No acute abnormality. IMPRESSION: Left chest port likely terminates in the caval atrial junction. No pneumothorax. Workstation ID: [id number] Dictated by: ANGEL HARRISON on ThuOct 21, 2023 6:06:35 PM EDT Transcribed by: ANGEL HARRISON on ThuOct 21, 2023 6:06:35 PM EDT Finalized by: ANGEL HARRISON on ThuOct 21, 2023 6:06:35 PM EDT [facility] Comment on above: Order Comment: Injur y/Trauma or Illness?:Illness/Other How long have you had these symptoms (acute/chronic)?:Acute Reason for exam?:post-op port placement History of cancer?:no Surgeries, chemotherapy, or radiation?:no Type of Exam?:Initial Additional signs and symptoms?:. XR Chest PA and Abdomen APon 10-21-2023 [employer] [facility] Radiology Study observation (narrative) [facility] XR Chest PA and Abdomen APOr dered By: Angel Harrison on 10-21-2023 [facility] Work Phone: XR OR FLUOROSCOPY TIMEon XR OR FLUOROSCOPY TIME This is an auto finalized result. Please refer to patient chart for further information. further information. further information. [facility] Comment on above: Order Comment: Injur y/Trauma or Illness?:Illness/Other How long have you had these symptoms (acute/chronic)?:Acute Reason for exam?:post-op port placement History of cancer?:no Surgeries, chemotherapy, or radiation?:no Type of Exam?:Initial Additional signs and symptoms?:. XR and RF Chest PA and Later al and Viewson 10-21-2023 GE RIS APTTon 10-20-2023 aPTT Coag (Bld) [Time] 37 s High [facility] B12/Folateon 10-20-2023 Cobalamin (Vitamin B12) [Mass/Vol] 353 pg/mL 232 - 1245 pg/mL [facility] Folate [Mass/Vol] 13.1 ng/mL 3.1 - 17.5 ng/mL [facility] Interpretation and review of laboratory results Normal [facility] Basic metabolic 2000 panelon 10-20-2023 Anion gap [Moles/Vol] 13 mmol/L 10 - 2 0 mmol/L [facility] Calcium [Mass/Vol] 8.0 mg/dL Low 8.4 - 10. 2 mg/dL [facility] Chloride [Moles/Vol] 103 mmol/L 98 - 10 8 mmol/L [facility] Creatinine [Mass/Vol] 1.00 mg/dL 0.80 - 1.30 mg/dL [facility] GFR/1.73 sq M.predicted CKD-EPI (S/P/Bld) [Vol rate/Area] 78 - PINF [facility] Glucose [Mass/Vol] 137 mg/dL High 65 - 99 mg/dL [facility] HCO3 [Moles/Vol] 27 mmol/L 21 - 32 mmol/L [facility] Interpretation and review of laboratory results Abnormal [facility] Potassium [Moles/Vol] 4.0 mmol/L 3.5 - 5.1 mmol/L [facility] Sodium [Moles/Vol] 139 mmol/L 135 - 145 mmol/L [facility] Urea nitrogen [Mass/Vol] 24 mg/dL 8 - 25 mg/dL [facility] Urea nitrogen/Creatinine [Mass ratio] 24.0 mg/mg High 10.0 - 20.0 [facility] CBC Auto Differentialon 09-28 Basophils (Bld) [#/Vol] 0.03 10*3/uL [facility] Basophils/100 WBC (Bld) 0.3 % [facility] Eosinophils (Bld) [#/Vol] 0.14 10*3/uL [facility] Eosinophils/100 WBC (Bld) 1.4 % [facility] Erythrocyte distribution width (RBC) [Entitic vol] 24.7 % High 11.6 - 14.8 % [facility] Hematocrit (Bld) [Volume fraction] 27.7 % Low 41.0 - 53.0 % [facility] Hemoglobin (Bld) [Mass/Vol] 7.8 g/dL Low 13.5 - 17.5 g/dL [facility] Immature granulocytes (Bld) [#/Vol] 0.17 10*3/uL [facility] Immature granulocytes/100 WBC (Bld) 1.70 % [facility] Interpretation and review of laboratory results Abnormal [facility] Lymphocytes (Bld) [#/Vol] 0.74 10*3/uL Low [facility] Lymphocytes/100 WBC (Bld) 7.6 % [facility] MCH (RBC) [Entitic mass] 20.5 pg Low 26.0 - 34.0 pg [facility] MCHC (RBC) [Mass/Vol] 28.2 g/dL Low 31.0 - 37.0 g/dL [facility] MCV (RBC) [Entitic vol] 72.9 fL Low 80.0 - 100.0 fL [facility] Monocytes (Bld) [#/Vol] 0.59 10*3/uL [facility] Monocytes/100 WBC (Bld) 6.0 % [facility] Neutrophils (Bld) [#/Vol] 8.10 10*3/uL High [facility] Neutrophils/100 WBC (Bld) 83.0 % [facility] Nucleated RBC (Bld) [#/Vol] 0.05 10*3/uL High [facility] Nucleated RBC/100 WBC (Bld) [Ratio] 0.5 % [facility] Platelet mean volume (Bld) [Entitic vol] 9.3 fL Low 9.4 - 12.4 fL [facility] Platelets (Bld) [#/Vol] 318 10*3/uL [facility] RBC (Bld) [#/Vol] 3.80 10*6/uL Low [facility] ealth WBC (Bld) [#/Vol] 9.77 10*3/uL [facility] eah [facility] CEAOrdered By: Carola Peña on 10-20-2023 Carcinoembryonic Ag [Mass/Vol] 42.00 ng/mL High 0.00 - 2.50 ng/mL [facility] Interpretation and review of laboratory results Abnormal [facility] COLONOSCOPYon 10-20-[address] [facility] [address] Abdomen and Pelvis W cont rast Miladis 10-20-2023 [employer] [facility] Radiology Study observation (narrative) [facility] CT Abdomen and Pelvis W cont rast IVOrdered By: Guillermo Bose on 10-20-2023 [facility] Work Phone: CTA PULM ART AND CT ABD PELV IS WITH IV CONTRASTon 10-20-[address] ABD PELVIS WITH IV CONTRAST EXAMINATION: CTA PULM ART AND CT ABD PELVIS WITH IV CONTRAST HISTORY: ORDERING SYSTEM PROVIDED HISTORY: hypoxia, multiple nodules noted on CXR; hypoxia, multiple nodules noted on CXR, TECHNOLOGIST PROVIDED HISTORY: Illness/Other Reason for exam: hypoxia, multiple nodules on CXR, concern for METS Encounter Type: Subsequent/Follow-up Additional signs and symptoms: . ORDERING SYSTEM PROVIDED DIAGNOSIS CODES: J96.01 Acute respiratory failure with hypoxia (HCC) D64.9 Anemia, unspecified type R06.02 SOB (shortness of breath) COMPARISON: None. TECHNIQUE: CT angiography of the pulmonary arteries following the administration of intravenous contrast. Coronal and sagittal MIP images were performed. Postcontrast axial CT images obtained through the abdomen and pelvis. Reconstructions obtained in the sagittal and coronal planes. Dose reduction techniques were achieved by using automated exposure control and/or adjustment of mA and/or kV according to patient size and/or use of iterative reconstruction technique. CONTRAST: IOPAMIDOL 370 MG IODINE/ML (76 %) INTRAVENOUS SOLUTION - 75 mL, FINDINGS: CT pulmonary angiogram: There is good contrast opacification of the pulmonary arteries. No acute pulmonary emboli. Cardiomegaly. Coronary artery calcifications are present. No thoracic aorta aneurysm or dissection. Thyroid gland normal. Trachea normal. Esophagus normal. Subcarinal lymph node measures 1.3 x 1.9 cm. There are a few additional smaller mediastinal lymph nodes. There are a few small hilar lymph nodes. Numerous metastatic nodules and masses are seen throughout both lungs. A left upper lobe metastatic mass measures 2.8 x 3.4 cm. An additional left upper lobe metastatic mass measures 3.1 x 3.5 cm. A mass within the right middle lobe measures 3.5 x 4.7 cm. A mass at the left lung base measures 3.9 x 4.1 cm. Multiple additional metastatic nodules and masses are noted. There is hazy ground-glass density throughout the lungs that may be pulmonary edema. No pleural effusion. No pneumothorax. CT abdomen and pelvis: Multiple liver metastases are noted. A low-density metastatic lesion in the right lobe of the liver measures 3.0 x 3.2 cm. A metastatic lesion in the left lobe of the liver measures 2.7 x 2.9 cm. There are multiple additional smaller low-density metastatic liver lesions. Gallbladder normal. No abnormal bile duct dilatation. Pancreas normal. Spleen normal. Adrenal glands normal. Kidneys are normal. Stomach normal. Duodenum normal. No small bowel obstruction. No small bowel wall thickening. Appendectomy. There is a mass in the cecum with abnormal thickening and enhancement of the wall of the cecum. The mass measures 6.1 x 6.7 cm in cross-section. This does not obstruct the ileocecal valve but appears to extend to the level of the ileocecal valve. There is some fluid in the ascending colon. There is fluid throughout the transverse colon. Multiple diverticula along the descending colon without acute inflammation. There are some diverticula along the sigmoid colon without inflammation. There are a few abnormally enlarged mesenteric lymph nodes in the right lower quadrant. The largest of these lymph nodes measures 1.1 x 1.1 cm. There are a few additional mildly enlarged mesenteric lymph nodes in the right lower quadrant. Calcification of the abdominal aorta without aneurysmal enlargement. Inferior vena cava normal in size. No ascites. No free air. In the pelvis, the bladder is unremarkable. Prostate gland is enlarged. The rectum is normal. No free fluid in the pelvis. No pelvic lymphadenopathy. No acute compression fracture in the thoracic or lumbar spine. No suspicious osseous lesions are clearly identified. No paraspinal masses. IMPRESSION: 1. No acute pulmonary emboli. 2. There is a mass in the cecum measuring approximately 6.7 cm in greatest dimension consistent with colon cancer. There are a few mildly enlarged mesenteric lymph nodes in the right lower quadrant likely representing local metastatic rolando disease. 3. Multiple ill-defined low-density metastatic lesions in the liver. 4. Numerous metastatic nodules and masses throughout both lungs. A few of these lesions abut the pleural surface but do not clearly invade into the chest wall. 5. Hazy ground-glass density throughout the lungs likely related to pulmonary edema. No pleural effusion. 6. There are a few small to borderline enlarged mediastinal and hilar lymph nodes that are nonspecific. MEHRAN/davin Workstation ID: [id number] Dictated by: GUILLERMO BOSE on ThuOct 20, 2023 12:21:39 PM EDT Transcribed by: TARA AVILA on ThuOct 20, 2023 12:46:37 PM EDT Finalized by: GUILLERMO BOSE on ThuOct 20, 2023 1:33:07 PM EDT Normal [facility] Comment on above: Order Comment: Injur y/Trauma or Illness?:Illness/Other How long have you had these symptoms (acute/chronic)?:Acute Reason for exam?:post-op port placement History of cancer?:no Surgeries, chemotherapy, or radiation?:no Type of Exam?:Initial Additional signs and symptoms?:. Comprehensive metabolic 2000 panelon 10-20-2023 Albumin [Mass/Vol] 3.3 g/dL 3.2 - 5.2 g/dL [facility] ALP [Catalytic activity/Vol] 80 U/L 40 - 150 U/L [facility] ALT [Catalytic activity/Vol] 8 U/L 0-50 U/L [facility] Anion gap [Moles/Vol] 14 mmol/L 10 - 2 0 mmol/L [facility] AST [Catalytic activity/Vol] 22 U/L 0-50 U/L [facility] Bilirubin [Mass/Vol] 0.7 mg/dL 0.0 - 1 .3 mg/dL [facility] Calcium [Mass/Vol] 8.3 mg/dL Low 8.4 - 10. 2 mg/dL [facility] Chloride [Moles/Vol] 104 mmol/L 98 - 10 8 mmol/L [facility] Creatinine [Mass/Vol] 1.00 mg/dL 0.80 - 1.30 mg/dL [facility] GFR/1.73 sq M.predicted CKD-EPI (S/P/Bld) [Vol rate/Area] 78 - PINF [facility] Glucose [Mass/Vol] 169 mg/dL High 65 - 99 mg/dL [facility] HCO3 [Moles/Vol] 27 mmol/L 21 - 32 mmol/L [facility] Interpretation and review of laboratory results Abnormal [facility] Potassium [Moles/Vol] 4.2 mmol/L 3.5 - 5.1 mmol/L [facility] Protein [Mass/Vol] 6.0 g/dL 6.0 - 8.0 g/dL [facility] Sodium [Moles/Vol] 141 mmol/L 135 - 145 mmol/L [facility] Urea nitrogen [Mass/Vol] 19 mg/dL 8 - 25 mg/dL [facility] Urea nitrogen/Creatinine [Mass ratio] 19.0 mg/mg 10.0 - 20.0 [facility] ENDOSCOPY, ESOPHAGUSon 10-19 [facility] Glucose (Bld) [Mass/Vol]on 0 10-20-2023 Glucose [Mass/Vol] 173 mg/dL High 65 - 99 mg/dL [facility] Interpretation and review of laboratory results Abnormal [facility] Glucose [Mass/Vol] 117 mg/dL High 65 - 99 mg/dL [facility] Interpretation and review of laboratory results Abnormal [facility] Glucose [Mass/Vol] 157 mg/dL High 65 - 99 mg/dL [facility] Interpretation and review of laboratory results Abnormal [facility] Glucose [Mass/Vol] 142 mg/dL High 65 - 99 mg/dL [facility] Interpretation and review of laboratory results Abnormal [facility] Hemoglobin and Hematocrit pa harvey (Bld)on 10-20-2023 Hematocrit (Bld) [Volume fraction] 28.9 % Low 41.0 - 53.0 % [facility] Hemoglobin (Bld) [Mass/Vol] 8.0 g/dL Low 13.5 - 17.5 g/dL [facility] Interpretation and review of laboratory results Abnormal [facility] Hematocrit (Bld) [Volume fraction] 28.6 % Low 41.0 - 53.0 % [facility] Hemoglobin (Bld) [Mass/Vol] 8.0 g/dL Low 13.5 - 17.5 g/dL [facility] Interpretation and review of laboratory results Abnormal [facility] INR Coag (PPP) [Relative mario e]Ordered By: Rafaela Shukla on 10-20-2023 Interpretation and review of laboratory results Abnormal [facility] PT Coag (PPP) [Time] 15.1 s High [facility] PT/INROrdered By: Rafaela butler on 10-20-2023 INR Coag (PPP) [Relative time] 1.2 {INR} High 0.8 - 1.1 [facility] aPTT Coag (Bld) [Time]on Interpretation and review of laboratory results Abnormal [facility] ABORH Verificationon 024 ABO and Rh group Nom (Bld) Blood group O Rh(D) positive [facility] ABO and Rh group Nom (Bld) ABO/Rh Verification [facility] Basic metabolic 2000 panelon 10-19-2023 Anion gap [Moles/Vol] 15 mmol/L 10 - 2 0 mmol/L [facility] Calcium [Mass/Vol] 8.2 mg/dL Low 8.4 - 10. 2 mg/dL [facility] Chloride [Moles/Vol] 102 mmol/L 98 - 10 8 mmol/L [facility] Creatinine [Mass/Vol] 1.24 mg/dL 0.80 - 1.30 mg/dL [facility] GFR/1.73 sq M.predicted CKD-EPI (S/P/Bld) [Vol rate/Area] 61 - PINF [facility] Glucose [Mass/Vol] 288 mg/dL High 65 - 99 mg/dL [facility] HCO3 [Moles/Vol] 26 mmol/L 21 - 32 mmol/L [facility] Interpretation and review of laboratory results Abnormal [facility] Potassium [Moles/Vol] 4.3 mmol/L 3.5 - 5.1 mmol/L [facility] Sodium [Moles/Vol] 139 mmol/L 135 - 145 mmol/L [facility] Urea nitrogen [Mass/Vol] 33 mg/dL High 8 - 25 mg/dL [facility] Urea nitrogen/Creatinine [Mass ratio] 26.6 mg/mg High 10.0 - 20.0 [facility] Blood type and Indirect anti body screen panel (Bld)on 10-19-2023 ABO and Rh group Nom (Bld) Blood group O Rh(D) positive [facility] Blood group antibody screen Ql Negative [facility] Specimen Expires 10/22/2023 23:59 EST [facility] CBC Auto Differentialon 09-28 Basophils (Bld) [#/Vol] 0.04 10*3/uL [facility] Basophils/100 WBC (Bld) 0.4 % [facility] Eosinophils (Bld) [#/Vol] 0.14 10*3/uL [facility] Eosinophils/100 WBC (Bld) 1.5 % [facility] Erythrocyte distribution width (RBC) [Entitic vol] 23.2 % High 11.6 - 14.8 % [facility] Hematocrit (Bld) [Volume fraction] 22.3 % Low 41.0 - 53.0 % [facility] Hemoglobin (Bld) [Mass/Vol] 5.5 g/dL Critically low 13.5 - 17.5 g/dL [facility] Immature granulocytes (Bld) [#/Vol] 0.10 10*3/uL [facility] Immature granulocytes/100 WBC (Bld) 1.00 % [facility] Interpretation and review of laboratory results Abnormal [facility] Lymphocytes (Bld) [#/Vol] 0.79 10*3/uL Low [facility] Lymphocytes/100 WBC (Bld) 8.2 % [facility] MCH (RBC) [Entitic mass] 17.1 pg Low 26.0 - 34.0 pg [facility] MCHC (RBC) [Mass/Vol] 24.7 g/dL Low 31.0 - 37.0 g/dL [facility] MCV (RBC) [Entitic vol] 69.3 fL Low 80.0 - 100.0 fL [facility] Monocytes (Bld) [#/Vol] 0.62 10*3/uL [facility] Monocytes/100 WBC (Bld) 6.5 % [facility] Neutrophils (Bld) [#/Vol] 7.91 10*3/uL High [facility] Neutrophils/100 WBC (Bld) 82.4 % [facility] Nucleated RBC (Bld) [#/Vol] 0.05 10*3/uL High [facility] Nucleated RBC/100 WBC (Bld) [Ratio] 0.5 % [facility] Platelet mean volume (Bld) [Entitic vol] 9.7 fL 9.4 - 12.4 fL [facility] Platelets (Bld) [#/Vol] 359 10*3/uL [facility] RBC (Bld) [#/Vol] 3.22 10*6/uL Low [facility] ealth WBC (Bld) [#/Vol] 9.60 10*3/uL [facility] eah CBC and Diff Morphologyon Ovalocytes LM Ql (Bld) Few [facility] Polychromasia LM Ql (Bld) Few [facility] RBC morphology finding Nom (Bld) See Comment [facility] Target cells LM Ql (Bld) Few [facility] COVID-19/INFLUENZA A,B MOLEC ULARon 10-19-2023 SARS-CoV-2 (COVID-19) Ab IA Ql SARS-COV-2 (CLEOPATRA): Not Detected INFLUENZA A (CLEOPATRA): Not Detected INFLUENZA B (CLEOPATRA): Not Detected Normal Not Detected [facility] Comment on above: Performed By: #### L [id number] ####[facility] [address] [address] Saeid Platt M.D. [id number] Critical Careon 10-19-2023 [facility] EKGon 10-19-2023 [facility] EKG 12-leadon 10-19-2023 Atrial Rate 92 BPM [facility] P [place] 67 degrees [facility] P-R Interval 126 ms [facility] Q-T Interval 358 ms [facility] QRS Duration 82 ms [facility] QTC Calculation (Bezet) 442 ms [facility] R [place] 67 degrees [facility] T [place] 68 degrees [facility] Ventricular Rate 92 BPM [facility] th MUSE [facility] Glucose (Bld) [Mass/Vol]on 0 10-19-2023 Glucose [Mass/Vol] 187 mg/dL High 65 - 99 mg/dL [facility] Interpretation and review of laboratory results Abnormal [facility] Glucose [Mass/Vol] 167 mg/dL High 65 - 99 mg/dL [facility] Interpretation and review of laboratory results Abnormal [facility] HbA1c (Bld) [Mass fraction]o n 10-19-2023 Average glucose Estimated from glycated hemoglobin (Bld) [Mass/Vol] 171 mg/dL High 74 - 114 mg/dL [facility] Interpretation and review of laboratory results Abnormal [facility] Hemoglobin A1con 10-19-2023 HbA1c (Bld) [Mass fraction] 7.6 % High 4.2 - 5.6 % [facility] Hemoglobin and Hematocrit pa harvey (Bld)on 10-19-2023 Hematocrit (Bld) [Volume fraction] 24.7 % Low 41.0 - 53.0 % [facility] Hemoglobin (Bld) [Mass/Vol] 6.8 g/dL Critically low 13.5 - 17.5 g/dL [facility] Interpretation and review of laboratory results Abnormal [facility] Hematocrit (Bld) [Volume fraction] 21.1 % Low 41.0 - 53.0 % [facility] Hemoglobin (Bld) [Mass/Vol] 5.2 g/dL Critically low 13.5 - 17.5 g/dL [facility] Interpretation and review of laboratory results Abnormal [facility] INR Coag (PPP) [Relative mario e]on 10-19-2023 Interpretation and review of laboratory results Abnormal [facility] PT Coag (PPP) [Time] 16.3 s High [facility] Influenza virus A and B RNA and SARS-CoV-2 (COVID-19) N gene panel ROYCE+probe (Resp)Ordered By: Jamee Smith on 10-19-2023 FLUAV RNA ROYCE+probe Ql (Unsp spec) Not detected Not Detected [facility] FLUBV RNA ROYCE+probe Ql (Unsp spec) Not detected Not Detected [facility] Interpretation and review of laboratory results Normal [facility] SARS-CoV-2 (COVID-19) RNA ROYCE+probe Ql (Resp) Not detected Not Detected [facility] Iron Study with Ferritinon 0 10-19-2023 Ferritin [Mass/Vol] 18 ng/mL Low 30 - 400 ng/mL [facility] Interpretation and review of laboratory results Abnormal [facility] Iron [Mass/Vol] 8 ug/dL Low [facility] Iron binding capacity [Mass/Vol] 290 [facility] Iron saturation [Mass fraction] 3 % Low 20 - 50 % [facility] Ferritin [Mass/Vol] 19 ng/mL Low 30 - 400 ng/mL [facility] Interpretation and review of laboratory results Abnormal [facility] Iron [Mass/Vol] 10 ug/dL [facility] Iron binding capacity [Mass/Vol] 304 [facility] Iron saturation [Mass fraction] 3 % Low 20 - 50 % [facility] Laboratory - Blood bankon ABO and Rh group Nom (Bld) 5100 [facility] ABO and Rh group Nom (Bld) Blood group O Rh(D) positive [facility] Lactate [Moles/Vol]on 2023 Interpretation and review of laboratory results Normal [facility] Lactic Acid, Plasmaon 2023 Lactate [Moles/Vol] 1.1 mmol/L 0.6 - 2. 0 mmol/L [facility] NT Pro BNPon 10-19-2023 Natriuretic peptide.B prohormone N-Terminal [Mass/Vol] 2593 pg/mL High 0 - 300 pg/mL [facility] Natriuretic peptide.B prohor loc N-Terminal [Mass/Vol]on 10-19-2023 Interpretation and review of laboratory results Abnormal [facility] No Panel Informationon 10-18 Cross Match Compatible [facility] Product ID Red Blood Cells [facility] Status Info Transfused [facility] Obtain VBG and performon [facility] POC Venous Blood Gas Panel-P ulmon 10-19-2023 Base excess Calc (BldV) [Moles/Vol] 2.0 mmol/L -2.0 - 2.0 [facility] Calcium.ionized [Mass/Vol] 4.4 mg/dL Low 4.5 - 5.3 mg/dL [facility] Carboxyhemoglobin (BldA) [Mass fraction] 4.4 High NINF [facility] Chloride [Moles/Vol] 102 mmol/L 98 - 10 8 mmol/L [facility] CO2 (BldV) [Partial pressure] 49.1 mm[Hg] [facility] Glucose post fast [Mass/Vol] 279 mg/dL High 65 - 99 mg/dL [facility] HCO3 (Bld) [Moles/Vol] 27.6 mmol/L 24.0 - 28.0 mmol/L [facility] Hemoglobin (Bld) [Mass/Vol] 6.1 g/dL Critically low 13.5 - 17.5 g/dL [facility] Interpretation and review of laboratory results Abnormal [facility] Lactate [Moles/Vol] 3.0 mmol/L High 0.6 - 2. 0 mmol/L [facility] Methemoglobin (BldA) [Mass fraction] 1.3 % 0.0 - 2.0 % [facility] Oxygen (BldV) [Partial pressure] 49 mm[Hg] High [facility] Oxygen saturation in Venous blood 80.1 % High 40.0 - 70.0 % [facility] Oxyhemoglobin (BldA) [Mass fraction] 75.5 % No established reference range [facility] pH (BldV) 7.36 [pH] 7.32 - 7.42 [facility] Potassium [Moles/Vol] 4.1 mmol/L 3.5 - 5.1 mmol/L [facility] Sodium [Moles/Vol] 141 mmol/L 135 - 145 mmol/L [facility] Specimen source Nom (Unsp spec) Not specified [facility] PT/INRon 10-19-2023 INR Coag (PPP) [Relative time] 1.3 {INR} High 0.8 - 1.1 [facility] Prepare RBC: 1 Unitson 10-18 ABO and Rh group Nom (Bld) 5100 [facility] ABO and Rh group Nom (Bld) Blood group O Rh(D) positive [facility] Cross Match Compatible [facility] Product Code [id number] [facility] Product ID Red Blood Cells [facility] h Status Info Transfused [facility] Unit Number [id number] [facility] Prepare RBC: 2 Unitson 10-18 Product Code [id number] [facility] Product Code [id number] [facility] Unit Number [id number] [facility] Unit Number [id number] [facility] TSH DL <= 0.005 mIU/L Qnon 0 10-19-2023 Interpretation and review of laboratory results Normal [facility] TSH Qn 0.71 m[IU]/L [facility] Troponinon 10-19-2023 Delta Difference Troponin T -4 ng/L < = -/+ 7 change [facility] Inter Troponin T Delta Change Probable non-acute cardiac injury or late presentation of acute injury. [facility] Troponin T 22 ng/L NINF - 22 ng/L [facility] Troponin x 2 (Now and Repeat in 3 hours)on 10-19-2023 Interp Troponin T Delta Change Delta troponin requires at least 3 hours between collections. [facility] Troponin T 21 ng/L NINF - 22 ng/L [facility] Troponin x 2 (Now and Repeat in 3 hours)Ordered By: Tosha Meyer on 10-19-2023 Interpretation and review of laboratory results Abnormal [facility] Troponin T 26 ng/L Critically high NINF - 22 ng/L [facility] Troponin T Interpretation Possible acute cardiac injury. [facility] UrinalysisOrdered By: Jessica Dela Cruz on 10-19-2023 Bacteria Auto Ql (U) Rare Abnormal None Se en /hpf [facility] Bilirubin Ql (U) Negative Negative [facility] th Clarity Refractometry automated (U) Clear Clear [facility] Color (U) Yellow Colorless, Yellow [facility] Crystals.amorphous Computer assisted (U) [#/Area] Few Abnormal None Seen, Rare /hpf [facility] Epithelial cells.squamous Auto (Urine sed) [#/Area] [facility] Glucose Auto test strip (U) [Mass/Vol] 50 mg/dL Abnormal Negative [facility] Hemoglobin Auto test strip Ql (U) Negative Negative [facility] Hyaline casts Auto (Urine sed) [#/Area] 0-2 [facility] Interpretation and review of laboratory results Abnormal [facility] Ketones (U) [Mass/Vol] Negative Negative mg/dL [facility] Leukocyte esterase Auto test strip Ql (U) Negative Negative [facility] Mucus Auto (Urine sed) [#/Area] Rare None Seen, Rare /lpf [facility] Nitrite Auto test strip Ql (U) Negative Negative [facility] pH (U) 6.0 [pH] 5.0 - 7.0 [facility] Protein (U) [Mass/Vol] 30 mg/dL Abnormal Negative [facility] RBC Auto (Urine sed) [#/Area] 2 [facility] Specific gravity (U) [Rel density] 1.028 High 1.005 - 1.025 [facility] Urobilinogen (U) [Mass/Vol] mg/dL [facility] WBC Auto (Urine sed) [#/Area] 1 [facility] XR CHEST AP/PA AND LATon XR CHEST AP/PA AND LAT EXAMINATION: XR CHEST AP/PA AND LAT HISTORY: ORDERING SYSTEM PROVIDED HISTORY: SOB, hypoxia, TECHNOLOGIST PROVIDED HISTORY: Illness/Other Reason for exam: SOB Cancer History: no Surgery, RadiationHistory: no Encounter Type: Initial Additional signs and symptoms: Patient states hes had SOB for years but its been worse the last couple weeks ORDERING SYSTEM PROVIDED DIAGNOSIS CODES: COMPARISON: Chest x-ray: 01/06/2022 FINDINGS: Two-view chest x-ray. There are multiple bilateral pulmonary nodules and masses. The dominant nodule in the right lung base measures 4.7 cm. A dominant nodule in the left lung base measures 4.1 cm. A mass overlying the heart on the lateral view measures 5.3 cm. There is no effusion or pneumothorax. The heart and pulmonary vessels appear stable. There are degenerative changes in the shoulders. IMPRESSION: Multiple bilateral pulmonary masses measuring up to approximately 5.3 cm likely secondary to metastatic disease. Workstation ID: [id number] Dictated by: MATHEW WONG on ThuOct 19, 2023 9:52:50 AM EDT Transcribed by: MATHEW WONG on ThuOct 19, 2023 9:52:50 AM EDT Finalized by: MATHEW WONG on ThuOct 19, 2023 9:52:50 AM EDT Normal [facility] Comment on above: Order Comment: Injur y/Trauma or Illness?:Illness/Other How long have you had these symptoms (acute/chronic)?:Chronic Reason for exam?:SOB History of cancer?:no Surgeries, chemotherapy, or radiation?:no Type of Exam?:Initial Additional signs and symptoms?:Patient states hes had SOB for years but its been worse the last couple weeks XR Chest PA and Lateral and AP lateral-decubituson 10-19-2023 GE RIS GE RIS [facility] Radiology Study observation (narrative) [facility] XR Chest PA and Lateral and AP lateral-decubitusOrdered By: Mathew Wong on 10-19-2023 [facility] Work Phone: Cholesterol in LDL Direct as say [Mass/Vol]on 06-26-2023 Cholesterol in LDL [Mass/Vol] 66 mg/dL Normal 0-129 [facility] Comment on above: Order Comment: [place] chip levels of LDL cholesterol are recognized as a lopez factor in the development of atherosclerosis and CHD. The direct LDL cholesterol test can be used to assess cardiovascular risk and monitor therapy as a follow up to a lipid profile when triglycerides are significantly elevated. Performed By: #### 1 8262-6 #### CODY Mcfadden ([id number]) [facility] ([facility]) [id number] [place] [address] Comprehensive metabolic 2000 panelon 06-26-2023 Albumin BCP dye [Mass/Vol] 3.9 g/dL Normal 3.4-5.0 [facility] Comment on above: Performed By: #### 2 4323-8 #### AKIL CASTLE ([id number]) [facility] ([facility]) [address] [place] [address] ALP [Catalytic activity/Vol] 83 U/L Normal 33-136 [facility] Comment on above: Performed By: #### 2 4323-8 #### AKIL CASTLE ([id number]) [facility] ([facility]) [address] [place] [address] ALT With P-5'-P [Catalytic activity/Vol] 7 U/L Low 10-52 [facility] Comment on above: Result Comment: Anais ents treated with Sulfasalazine may generate falsely decreased results for ALT. Performed By: #### 2 4323-8 #### AKIL CASTLE ([id number]) [facility] ([facility]) [address] [place] [address] Anion gap [Moles/Vol] 13 mmol/L Normal 10-20 [facility] Comment on above: Performed By: #### 2 4323-8 #### AKIL CASTLE ([id number]) [facility] ([facility]) [address] [place] [address] AST With P-5'-P [Catalytic activity/Vol] 9 U/L Normal 9-39 [facility] Comment on above: Performed By: #### 2 4323-8 #### AKIL CASTLE ([id number]) [facility] ([facility]) [address] [place] [address] Bilirubin [Mass/Vol] 0.6 mg/dL Normal 0.0-1.2 [facility] Comment on above: Performed By: #### 2 4323-8 #### AKIL CASTLE ([id number]) [facility] ([facility]) [address] [place] [address] Calcium [Mass/Vol] 8.9 mg/dL Normal 8.6-10.3 [facility] Comment on above: Performed By: #### 2 4323-8 #### AKIL CASTLE ([id number]) [facility] ([facility]) [address] [place] [address] Chloride [Moles/Vol] 101 mmol/L Normal 98-107 [facility] Comment on above: Performed By: #### 2 4323-8 #### AKIL CASTLE ([id number]) [facility] ([facility]) [address] [place] [address] CO2 [Moles/Vol] 30 mmol/L Normal 21-32 [facility] Comment on above: Performed By: #### 2 4323-8 #### AKIL CASTLE ([id number]) [facility] ([facility]) [address] [place] [address] Creatinine [Mass/Vol] 1.11 mg/dL Normal 0.50-1.30 [facility] Comment on above: Performed By: #### 2 4323-8 #### AKIL CASTLE ([id number]) [facility] ([facility]) [address] [place] [address] GFR/1.73 sq M.predicted MDRD (S/P/Bld) [Vol rate/Area] 69 mL/min/1.73m*2 Normal >60 [facility] Comment on above: Result Comment: Calc ulations of estimated GFR are performed using the 2020 CKD-EPI Study Refit equation without the race variable for the IDMS-Traceable creatinine methods. https://jasn.asnjournals.org/content/early//ASN.608413 7866 Performed By: #### 2 4323-8 #### AKIL CASTLE ([id number]) [facility] ([facility]) [address] [place] [address] Glucose [Mass/Vol] 171 mg/dL High 74-99 [facility] Comment on above: Performed By: #### 2 4323-8 #### AKIL CASTLE ([id number]) [facility] ([facility]) [address] [place] [address] Potassium [Moles/Vol] 4.1 mmol/L Normal 3.5-5.3 [facility] Comment on above: Performed By: #### 2 4323-8 #### AKIL CASTLE ([id number]) [facility] ([facility]) [address] [place] [address] Protein [Mass/Vol] 6.8 g/dL Normal 6.4-8.2 [facility] Comment on above: Performed By: #### 2 4323-8 #### AKIL CASTLE ([id number]) [facility] ([facility]) [address] [place] [address] Sodium [Moles/Vol] 140 mmol/L Normal 136-145 [facility] Comment on above: Performed By: #### 2 4323-8 #### AKIL CASTLE ([id number]) [facility] ([facility]) [address] [place] [address] Urea nitrogen [Mass/Vol] 21 mg/dL Normal 6-23 [facility] Comment on above: Performed By: #### 2 4323-8 #### AKIL CASTLE ([id number]) [facility] ([facility]) [address] [place] [address] HbA1c (Bld) [Mass fraction]o n 06-26-2023 Average glucose Estimated from glycated hemoglobin (Bld) [Mass/Vol] 157 mg/dL Normal Not Established [facility] Comment on above: Order Comment: Diagn osis of Diabetes-Adults Non-Diabetic: < or = 5.6% Increased risk for developing diabetes: 5.7-6.4% Diagnostic of diabetes: > or = 6.5% Monitoring of Diabetes Age (y)....................... Therapeutic Goal (%) Adults: >18.........................<7.0 Pediatrics: 13-18...................<7.5 Pediatrics: 7-12....................<8.0 Pediatrics: 0-6..................... 7.5-8.5 [employer]. Diabetes Care 33(S1)Jun 2009 Performed By: #### 4 548-4 #### AKIL CASTLE ([id number]) [facility] ([facility]) [address] [place] [address] Hemoglobin A1c/Hemoglobin.to jenny 06-26-2023 HbA1c (Bld) [Mass fraction] 7.1 % High see below [facility] Comment on above: Order Comment: Diagn osis of Diabetes-Adults Non-Diabetic: < or = 5.6% Increased risk for developing diabetes: 5.7-6.4% Diagnostic of diabetes: > or = 6.5% Monitoring of Diabetes Age (y)....................... Therapeutic Goal (%) Adults: >18.........................<7.0 Pediatrics: 13-18...................<7.5 Pediatrics: 7-12....................<8.0 Pediatrics: 0-6..................... 7.5-8.5 [employer]. Diabetes Care 33(S1)Jun 2009 Performed By: #### 4 548-4 #### AKIL CASTLE ([id number]) [facility] ([facility]) [address] [place] [address] Prostate specific Agon 06-26 Prostate specific Ag [Mass/Vol] 3.09 ng/mL Normal <=4.00 [facility] Comment on above: Order Comment: The F DA requires that the method used for PSA assay be reported to the physician. Values obtained with different assay methods must not be used interchangeably. This test was performed at [facility] using the [employer] Discovery PSA assay is a two-site immunoenzymatic sandwich assay. The assay is approved for measurement of prostate-specific antigen (PSA)in serum and may be used in conjunction with a digital rectal examination in men 50 years and older as an aid in detection of prostate cancer. 4-Owoil-aeiuyaotk inhibitors (e.g. Proscar, Finasteride, Avodart, Dutasteride and Chante) for the treatment of BPH have been shown to lower PSA levels by an average of 50% after 6 months of treatment. Performed By: #### 2 857-1 #### BARNARD CORRINE ([id number]) [facility] ([facility]) [address] [place] [address] COVID-19, MOLECULARon 2022 SARS-CoV-2 (COVID-19) Ab IA Ql Not detected Normal Not Detected [facility] Comment on above: Result Comment: This test was performed under the FDA's Emergency Use Authorization (EUA). Testing was performed using the Mcclell[employer] ID NOW COVID-19 assay on the ID NOW platform. This test has not been approved for use in asymptomatic patients and its performance in this patient population has not been evaluated. Negative results do not rule out the presence of SARS-CoV-2/COVID-19. Fact sheets for the EUA can be found at the following links: For Healthcare Providers: https://www.fda.gov/media/930968/download For Patients: https://www.fda.gov/media/886546/download ALBUMIN, URINE SPOTon 2022 ALBUMIN,URINE 14.9 mg/L Normal Not Established [facility] Comment on above: Performed By: #### C RP #### [id number] ALBUMIN/CREAT RATIO 8.4 ug/mg cycle analyst Normal 0.0 - 30.0 [facility] Comment on above: Performed By: #### C RP #### [address] [address] CREATININE,URINE 177.0 mg/dL Normal 20.0 - 370.0 [facility] Comment on above: Performed By: #### C RP #### [address] [address] ALBUMIN, URINE SPOTon 2022 ALBUMIN,URINE Canceled Normal [facility] Comment on above: Order Comment: TEST ALBUMIN, URINE SPOT WAS CANCELLED, 12/24/2022 07:15 patient unable to void, will recycle test.. Performed By: #### A LBSP #### [facility] [address] [place] [address] ALBUMIN/CREAT RATIO Canceled Normal [facility] Comment on above: Order Comment: TEST ALBUMIN, URINE SPOT WAS CANCELLED, 12/24/2022 07:15 patient unable to void, will recycle test.. Performed By: #### A LBSP #### [facility] [address] [place] [address] CREATININE,URINE Canceled Normal [facility] Comment on above: Order Comment: TEST ALBUMIN, URINE SPOT WAS CANCELLED, 12/24/2022 07:15 patient unable to void, will recycle test.. Performed By: #### A LBSP #### [facility] [address] [place] [address] COMPREHENSIVE PANELon 2022 Albumin [Mass/Vol] 3.8 g/dL Normal 3.4 - 5.0 [facility] Comment on above: Performed By: #### C MP #### [address] [address] ALP [Catalytic activity/Vol] 78 U/L Normal 33 - 136 [facility] Comment on above: Performed By: #### C MP #### [address] [address] ALT [Catalytic activity/Vol] 11 U/L Normal 10 - 52 [facility] Comment on above: Result Comment: Anais ents treated with Sulfasalazine may generate falsely decreased results for ALT. Performed By: #### C MP #### [address] [address] Anion gap [Moles/Vol] 12 mmol/L Normal 10 - 20 [facility] Comment on above: Performed By: #### C MP #### [address] [address] AST [Catalytic activity/Vol] 17 U/L Normal 9 - 39 [facility] Comment on above: Performed By: #### C MP #### [address] [address] Bilirubin [Mass/Vol] 0.7 mg/dL Normal 0.0 - 1.2 [facility] Comment on above: Performed By: #### C MP #### [address] [address] Calcium [Mass/Vol] 8.6 mg/dL Normal 8.6 - 10.3 [facility] Comment on above: Performed By: #### C MP #### [address] [address] Chloride [Moles/Vol] 100 mmol/L Normal 98 - 107 [facility] Comment on above: Performed By: #### C MP #### [address] [address] Creatinine [Mass/Vol] 1.16 mg/dL Normal 0.50 - 1.30 [facility] Comment on above: Performed By: #### C MP #### [address] [address] GFR/1.73 sq M.predicted among non-blacks MDRD (S/P/Bld) [Vol rate/Area] 66 mL/min/{1.73_m2} Normal >90 [facility] Comment on above: Result Comment: CALC ULATIONS OF ESTIMATED GFR ARE PERFORMED USING THE 2020 CKD-EPI STUDY REFIT EQUATION WITHOUT THE RACE VARIABLE FOR THE IDMS-TRACEABLE CREATININE METHODS. https://jasn.asnjournals.org/content/early/ASN.364035 2781 Performed By: #### C MP #### [address] [address] Glucose [Mass/Vol] 129 mg/dL High 74 - 99 [facility] Comment on above: Performed By: #### C MP #### [address] [address] HCO3 (Bld) [Moles/Vol] 29 mmol/L Normal 21 - 32 [facility] Comment on above: Performed By: #### C MP #### [address] [address] Potassium [Moles/Vol] 3.9 mmol/L Normal 3.5 - 5.3 [facility] Comment on above: Performed By: #### C MP #### [address] [address] Protein [Mass/Vol] 6.9 g/dL Normal 6.4 - 8.2 [facility] Comment on above: Performed By: #### C MP #### [address] [address] Sodium [Moles/Vol] 137 mmol/L Normal 136 - 145 [facility] Comment on above: Performed By: #### C MP #### [address] [address] Urea nitrogen [Mass/Vol] 19 mg/dL Normal 6 - 23 [facility] Comment on above: Performed By: #### C MP #### [address] [address] HEMOGLOBIN A1Con 12-24-2022 Glucose [Mass/Vol] 151 mg/dL Normal [facility] Comment on above: Performed By: #### H BA1E #### [address] [address] HbA1c (Bld) [Mass fraction] 6.9 % Abnormal [facility] Comment on above: Result Comment: Diag nosis of Diabetes-Adults Non-Diabetic: < or = 5.6% Increased risk for developing diabetes: 5.7-6.4% Diagnostic of diabetes: > or = 6.5% . Monitoring of Diabetes Age (y) Therapeutic Goal (%) Adults: >18 <7.0 Pediatrics: 13-18 <7.5 7-12 <8.0 0- 6 7.5-8.5 [employer] [employer]. Diabetes Care 33(S1), Jun 2009. Performed By: #### H BA1E #### [address] [address] LIPID PANEL (CORONARY RISK 2 )on 12-24-2022 Cholesterol [Mass/Vol] 111 mg/dL Normal 0 - 199 [facility] Comment on above: Result Comment: . AGE DESIRABLE BORDERLINE HIGH HIGH 0-19 Y 0 - 169 170 - 199 >/= 200 20-24 Y 0 - 189 190 - 224 >/= 225 >24 Y 0 - 199 200 - 239 >/= 240 All ranges are based on fasting samples. Specific therapeutic targets will vary based on patient-specific cardiac risk. . Pediatric guidelines reference:Pediatrics 2011, 128(S5). Adult guidelines reference: NCEP ATPIII Guidelines, MARISA 2001, 258:4986-97 . Venipuncture immediately after or during the administration of Metamizole may lead to falsely low results. Testing should be performed immediately prior to Metamizole dosing. Performed By: #### C RP #### [address] [address] Cholesterol in HDL [Mass/Vol] 39.0 mg/dL Abnormal [facility] Comment on above: Result Comment: . AGE VERY LOW LOW NORMAL HIGH 0-19 Y < 35 < 40 40-45 ---- 20-24 Y ---- < 40 >45 ---- >24 Y ---- < 40 40-60 >60 . Performed By: #### C RP #### [address] [address] Cholesterol in LDL [Mass/Vol] 47 mg/dL Normal 0 - 99 [facility] Comment on above: Result Comment: . NEAR BORD AGE DESIRABLE OPTIMAL HIGH HIGH VERY HIGH 0-19 Y 0 - 109 --- 110-129 >/= 130 ---- 20-24 Y 0 - 119 --- 120-159 >/= 160 ---- >24 Y 0 - 99 100-129 130-159 160-189 >/=190 . Performed By: #### C RP #### [address] [address] Cholesterol in VLDL [Mass/Vol] 25 mg/dL Normal 0 - 40 [facility] Comment on above: Performed By: #### C RP #### [address] [address] Cholesterol.total/Cho lesterol in HDL [Mass ratio] 2.8 {ratio} Normal [facility] Comment on above: Result Comment: REF VALUES DESIRABLE < 3.4 HIGH RISK > 5.0 Performed By: #### C RP #### [address] [address] Triglyceride [Mass/Vol] 123 mg/dL Normal 0 - 149 [facility] Comment on above: Result Comment: . AGE DESIRABLE BORDERLINE HIGH HIGH VERY HIGH 0 D-90 D 19 - 174 ---- ---- ---- 91 D- 9 Y 0 - 74 75 - 99 >/= 100 ---- 10-19 Y 0 - 89 90 - 129 >/= 130 ---- 20-24 Y 0 - 114 115 - 149 >/= 150 ---- >24 Y 0 - 149 150 - 199 200- 499 >/= 500 . Venipuncture immediately after or during the administration of Metamizole may lead to falsely low results. Testing should be performed immediately prior to Metamizole dosing. Performed By: #### C RP #### [address] [address] TSHon 12-24-2022 TSH Qn 1.68 m[IU]/L Normal 0.44 - 3.98 [facility] Comment on above: Result Comment: TSH testing is performed using different testing methodology at [facility] than at other [facility] [place] [facility]. Direct result comparisons should only be made within the same method. Performed By: #### T SH2 #### [address] [address] Tobacco Screening.on 023 Adult depression screening assessment No [employer] [facility] Work Phone: Fall risk assessment a) No falls within the last year [employer] [facility] Work Phone: Tobacco use status [facility] b) No [employer] [facility] Work Phone: COMPREHENSIVE PANEL 2021 Albumin [Mass/Vol] 4.1 g/dL Normal 3.4 - 5.0 [facility] Comment on above: Performed By: #### C MP #### [address] [address] ALP [Catalytic activity/Vol] 68 U/L Normal 33 - 136 [facility] Comment on above: Performed By: #### C MP #### [address] [address] ALT [Catalytic activity/Vol] 9 U/L Low 10 - 52 [facility] Comment on above: Result Comment: Anais ents treated with Sulfasalazine may generate falsely decreased results for ALT. Performed By: #### C MP #### [address] [address] Anion gap [Moles/Vol] 10 mmol/L Normal 10 - 20 [facility] Comment on above: Performed By: #### C MP #### [address] [address] AST [Catalytic activity/Vol] 14 U/L Normal 9 - 39 [facility] Comment on above: Performed By: #### C MP #### [address] [address] Bilirubin [Mass/Vol] 0.6 mg/dL Normal 0.0 - 1.2 [facility] Comment on above: Performed By: #### C MP #### [address] [address] Calcium [Mass/Vol] 9.2 mg/dL Normal 8.6 - 10.3 [facility] Comment on above: Performed By: #### C MP #### [address] [address] Chloride [Moles/Vol] 101 mmol/L Normal 98 - 107 [facility] Comment on above: Performed By: #### C MP #### [address] [address] Creatinine [Mass/Vol] 1.15 mg/dL Normal 0.50 - 1.30 [facility] Comment on above: Performed By: #### C MP #### [address] [address] GFR/1.73 sq M.predicted among non-blacks MDRD (S/P/Bld) [Vol rate/Area] 67 mL/min/{1.73_m2} Normal >90 [facility] Comment on above: Result Comment: CALC ULATIONS OF ESTIMATED GFR ARE PERFORMED USING THE 2020 CKD-EPI STUDY REFIT EQUATION WITHOUT THE RACE VARIABLE FOR THE IDMS-TRACEABLE CREATININE METHODS. https://jasn.asnjournals.org/content/early//ASN.765608 7880 Performed By: #### C MP #### [address] [address] Glucose [Mass/Vol] 106 mg/dL High 74 - 99 [facility] Comment on above: Performed By: #### C MP #### [address] [address] HCO3 (Bld) [Moles/Vol] 32 mmol/L Normal 21 - 32 [facility] Comment on above: Performed By: #### C MP #### [address] [address] Potassium [Moles/Vol] 3.7 mmol/L Normal 3.5 - 5.3 [facility] Comment on above: Performed By: #### C MP #### [address] [address] Protein [Mass/Vol] 7.2 g/dL Normal 6.4 - 8.2 [facility] Comment on above: Performed By: #### C MP #### [address] [address] Sodium [Moles/Vol] 139 mmol/L Normal 136 - 145 [facility] Comment on above: Performed By: #### C MP #### [address] [address] Urea nitrogen [Mass/Vol] 22 mg/dL Normal 6 - 23 [facility] Comment on above: Performed By: #### C MP #### [address] [address] HEMOGLOBIN A1Con 06-26-2022 Glucose [Mass/Vol] 154 mg/dL Normal [facility] Comment on above: Performed By: #### H BA1E #### [address] [address] HbA1c (Bld) [Mass fraction] 7.0 % Abnormal [facility] Comment on above: Result Comment: Diag nosis of Diabetes-Adults Non-Diabetic: < or = 5.6% Increased risk for developing diabetes: 5.7-6.4% Diagnostic of diabetes: > or = 6.5% . Monitoring of Diabetes Age (y) Therapeutic Goal (%) Adults: >18 <7.0 Pediatrics: 13-18 <7.5 7-12 <8.0 0- 6 7.5-8.5 [employer] [employer]. Diabetes Care 33(S1), Jun 2009. Performed By: #### H BA1E #### [address] [address] Hemoglobin A1Con 06-26-2022 Glucose [Mass/Vol] 154 mg/dL [facility]: HbA1c (Bld) [Mass fraction] 7.0 % Abnormal [facility] [place] [place] Work Phone: Comment on above: Diagnosis of Diabete s-Adults Non-Diabetic: < or = 5.6% Increased risk for developing diabetes: 5.7-6.4% Diagnostic of diabetes: > or = 6.5%. Monitoring of Diabetes Age (y) Therapeutic Goal (%) Adults: >18 <7.0 Pediatrics: 13-18 <7.5 7-12 <8.0 0- 6 7.5-8.5 [employer]. Diabetes Care 33(S1), Jun 2009. LDL, DIRECTon 06-26-2022 Cholesterol in LDL [Mass/Vol] 69 mg/dL Normal 0 - 129 [facility] Comment on above: Result Comment: Elev ated levels of LDL cholesterol are recognized as a lopez factor in the development of atherosclerosis and CHD. The direct LDL cholesterol test can be used to assess cardiovascular risk and monitor therapy as a follow up to a lipid profile when triglycerides are significantly elevated. Performed By: #### L DLDI #### [facility] [address] [place] [address] LDL, Direct, Serumon 022 Cholesterol in LDL [Mass/Vol] 69 mg/dL 0 - 129 [facility] [employer] [facility] Work Phone: Comment on above: Elevated levels of L DL cholesterol are recognized as a lopez factor in the development of atherosclerosis and CHD. The direct LDL cholesterol test can be used to assess cardiovascular risk and monitor therapy as a follow up to a lipid profile when triglycerides are significantly elevated. Laboratory - Chemistry and C hemistry - challengeon 06-26-2022 Albumin BCP dye [Mass/Vol] 4.1 g/dL 3.4 - 5.0 [facility] [place] [place] Work Phone: ALP [Catalytic activity/Vol] 68 U/L 33 - 136 [facility] [place] [place] Work Phone: ALT With P-5'-P [Catalytic activity/Vol] 9 U/L below low threshold 10 - 52 [facility] [employer] [facility] Work Phone: Comment on above: Patients treated wit h Sulfasalazine may generate falsely decreased results for ALT. Anion gap [Moles/Vol] 10 mmol/L 10 - 20 [facility] Work Phone: AST With P-5'-P [Catalytic activity/Vol] 14 U/L 9 - 39 [facility] [place] [place] Work Phone: Bilirubin [Mass/Vol] 0.6 mg/dL 0.0 - 1.2 - [employer] [facility] Work Phone: Calcium [Mass/Vol] 9.2 mg/dL 8.6 - 10.3 -[facility] [employer] Work Phone: Chloride [Moles/Vol] 101 mmol/L 98 - 107 [facility] [employer] [facility] Work Phone: CO2 [Moles/Vol] 32 mmol/L 21 - 32 [employer] [facility] Work Phone: Creatinine [Mass/Vol] 1.15 mg/dL See Below [employer] [facility] Work Phone: Comment on above: Reference Range: 0.5 0 - 1.30 Glucose [Mass/Vol] 106 mg/dL above high threshold 74 - 99 [email or web address] [facility] Work Phone: Potassium [Moles/Vol] 3.7 mmol/L 3.5 - 5.3 [facility] [[email or web address]] [employer] [facility] Work Phone: Protein [Mass/Vol] 7.2 g/dL 6.4 - 8.2 [employer] [facility] Work Phone: Sodium [Moles/Vol] 139 mmol/L 136 - 145 [employer] [facility] Work Phone: Urea nitrogen [Mass/Vol] 22 mg/dL 6 - 23 [employer] [facility] Work Phone: No Panel Informationon 06-26 67 {mL/min/1.73m2} >90 [employer] [facility] Work Phone: Comment on above: CALCULATIONS OF ROD MATED GFR ARE PERFORMED USING THE 2020 CKD-EPI STUDY REFIT EQUATION WITHOUT THE RACE VARIABLE FOR THE IDMS-TRACEABLE CREATININE METHODS.https://jasn.asnjournals.org/content// N.0881050828 PROSTATE SPEC.AG,SCREENon PROSTATE SPEC.AG,SCREEN 2.58 ng/mL Normal 0.00 - 4.00 [facility] Comment on above: Result Comment: The FDA requires that the method used for PSA assay be reported to the physician. Values obtained with different assay methods must not be used interchangeably. This test was performed at [facility] using the [employer] PSA assay is a two-site immunoenzymatic sandwich assay. The assay is approved for measurement of prostate-specific antigen (PSA)in serum and may be used in conjunction with a digital rectal examination in men 50 years and older as an aid in detection of prostate cancer. 0-Hmybg-yidskqikl inhibitors (e.g. Proscar, Finasteride, Avodart, Dutasteride and Chante) for the treatment of BPH have been shown to lower PSA levels by an average of 50% after 6 months of treatment. Performed By: #### C RP #### [facility] [address] [place] [address] Prostate Spec.Ag, Screenon 1 Prostate specific Ag [Mass/Vol] 2.58 ng/mL See Below [facility] Work Phone: Comment on above: Reference Range: 0.0 0 - 4.00The FDA requires that the method used for PSA assay be reported to the physician. Values obtained with different assay methods must not be used interchangeably. This testwas performed at [facility] using the [employer] PSA assay is a two-site immunoenzymatic sandwich assay. The assay is approved for measurement of prostate-specific antigen (PSA)in serum and may be used in conjunction with a digital rectal examination in men 50 years and older as an aid in detection of prostate cancer.1-Iwzks-tcpsrylrf inhibitors (e.g. Proscar, Finasteride, Avodart, Dutasteride and Chante) for the treatment of BPH have been shown to lower PSA levels by an average of 50% after 6 months of treatment. 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 We reviewed the MRI scan. We discussed the findings. We discussed his pain pattern. At this time, he does not want to do anything. He just wanted to make sure that there was nothing concerning on his imaging. He states that the pain has gotten better. It is not perfect but it is better than before. At this time, he will call our services should he require anything from us. Otherwise he is going to follow-up as needed. Chief Complaint Back Pain FUV MRI. PATIENT PRESENTS WITH PAIN IN HIS RIGHT LOWER BACK AND RIGHT SIDE. HE STATES THE PAIN IN HIS SIDE IS DULL, TENDER AND BURNING. THE PAIN IN HIS BACK IS DULL. HIS PAIN NEVER GOES AWAY. HE STATES THAT IT IS WORSE WITH STANDING, WALKING, BENDING OR TWISTING AND DAILY ACTIVITIES. HE DENIES USING ICE OR HEAT, WALKER, DEEP BREATHING OR MASSAGE TO HELP WITH HIS PAIN. HE DENIES GOING TO PT IN THE PAST OR DOING AT HOME STRETCHES/EXERCISE. PATIENT STATES HE HAS A CANE AT HOME BUT HE DOES NOT USE IT. HE TAKES MEDICATIONS PRESCRIBED; DENIES NEEDING REFILLS TODAY. 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 PATIENT DENIES NUMBNESS/PINS AND NEEDLES OR WEAKNESS. HE STATES THAT HE HAS HAD IT UP TO HERE (POINTING TO FOREHEAD) WITH ALL OF THE TESTS AND JUST WOULD LIKE AN ANSWER; STATING THAT HE HAS BEEN IN PAIN FOR TWO MONTHS. SMOKING NEGATIVE. DEPRESSION NEGATIVE. BMI EDUCATION GIVEN. PAIN 2/10 PAIN. Adult Risk Screening Living Will. Living Will: Living will on file. Healthcare POA: Health care proxy on file. Tobacco Screening: Has not used tobacco in the past 6 months. Has not tried to quit or thought about quitting tobacco. Domestic Violence Screen: Does not feel threatened or abused physically, emotionally or sexually. Do you feel UNSAFE? The patient feels safe in the home. Depression/Suicide Screening: During the past 2 weeks, the patient has not felt down, depressed or hopeless. During the past 2 weeks, the patient has not felt little interest or pleasure in doing things. He does not have a risk of suicide. He has not had thoughts of harming others. History of Present Illness On a scale of 0 to 10, the patient rates the pain at 2. Pain Location: Low Back Pain. Pain Quality: Burning, Dull, Tenderness and DULL IN THE LOW BACK; BURNING AND TENDER TO THE TOUCH DULL FEELING IN THE RIGHT SIDE. Timing/Duration: Constant and > 12 weeks duration. Exacerbating Factors: motion, lifting, repetitive motion, standing, walking, weightbearing and BENDING/TWISTING. Alleviating Factors: Assistive Devices, Medications, Repositioning. 24 Hour Behavior: Symptoms are the same in the am. Symptoms are the same as the day progresses. Symptoms are the same in the pm. Symptoms are better lying down. IF ON THE SIDE OR THE BACK. Patient is a 76-year-old male with a past medical history significant for pain along the right rib cage and lower back pain. He rates the discomfort a 2/10. He states that over the last month or so things have gotten better. He is here today just to make sure that there is nothing concerning on his imaging. He was concerned that maybe he had a mass. He states that the CT of the abdomen and pelvis did not show 1 but he wonders what this showed. He states that he can live with a certain amount of pain. He is not really all that concerned about that at this time. He just wants to make sure of the imaging. Review of Systems All 13 systems were reviewed and are within normal levels except as noted below or per HPI. Positive and pertinent negative responses are noted below or in the HPI. 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 Gonsalves History of Appendectomy History of Cardiac catheterization [facility], less than 70% stenosis, no stent History of Colonoscopy [place], 2019, +polyp (3 years) History of Knee replacement right knee per [facility] no details o (more content not included)... Normal [facility] MRI L Spine without Contrast on 04-22-2022 MR Lumbar spine WO contrast Normal [facility] Work Phone: MRI T Spine without Contrast on 04-22-2022 MR Thoracic spine WO contrast Normal [facility] Work Phone: NR MRI L-SPINE WOon 04-22-20 22 NR MRI L-SPINE WO Patient Name: DIPTI SIERRA STUDY: MRI L-SPINE WO; 04/22/2022 12:19 pm INDICATION: pain M06.4: Inflammatory polyarthropathy. COMPARISON: None. ACCESSION NUMBER(S): [id number] ORDERING CLINICIAN: TAMARA SESAY TECHNIQUE: The lumbar spine was studied in the sagital, axial and coronal planes utiliing T1 and T2 weighted images. FINDINGS: The marrow signal and vertebral body height are normal. The conus and sacrum are normal. Images at each interspace reveal the following: L1/L2 Mild bulging disc and facet hypertrophy without canal or foraminal narrowing L2/L3 Mild bulging disc and facet hypertrophy without canal or foraminal narrowing L3/L4 Mild bulging disc and facet hypertrophy without canal stenosis. Moderate bilateral foraminal narrowing without focal disc herniation L4/L5 Circumferential bulging intervertebral disc. Bilateral facet hypertrophy. Narrowing of the thecal sac which measures approximately 7 mm in diameter. Moderate/advanced bilateral foraminal narrowing. L5/S1 Asymmetrical bulging or osteophyte formation toward the left with focal left-sided foraminal narrowing. No measurable canal stenosis. IMPRESSION: * Lumbar spondylosis as described The examination was interpreted [facility] Electronically signed by: MICHELLE BLANCO MD [facility] NR MRI T-SPINE WOon 04-22-20 22 NR MRI T-SPINE WO Patient Name: DIPTI SIERRA STUDY: MRI T-SPINE WO; 04/22/2022 12:19 pm INDICATION: pain M06.4: Inflammatory polyarthropathy M54.14: Thoracic radiculopathy M48.062: Neurogenic claudication due to lumbar spinal stenosis. COMPARISON: None. ACCESSION NUMBER(S): [id number] ORDERING CLINICIAN: TAMARA SESAY TECHNIQUE: Sagittal and axial T1 and T2 weighted images were performed through the thoracic spine. FINDINGS: Marrow signal and vertebral body height are normal. There is slight loss of height and signal intervertebral disc spaces. Small bulging discs and osteophytes are present throughout the thoracic spine. There is no measurable canal stenosis or foraminally narrowing. The spinal cord is normal in size and signal. There is no evidence of herniated nucleus polyposis. The conus is normal. The paraspinal soft tissues are normal. IMPRESSION: Thoracic spondylosis without canal or foraminal narrowing. [place]AM[place] [facility] [place] by: MICHELLE BLANCO MD Normal [facility] C Reactive Protein, Serumon 04-14-2022 CRP [Mass/Vol] 0.42 mg/dL [facility] Work Phone: Comment on above: REF VALUE< 1.00 C-REACTIVE PROTEINon 022 C-REACTIVE PROTEIN 0.42 mg/dL Normal [facility] Comment on above: Result Comment: REF VALUE < 1.00 Performed By: #### C RP #### [facility] [address] [place] [address] Initial Visit (Pain Medicine )on 04-14-2022 Initial Visit (Pain Medicine) Diagnoses/Problems Thoracic radiculopathy (724.4) (M54.14) Neurogenic claudication due to lumbar spinal stenosis (724.03) (M48.062) 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 : No What are the patient's signs and symptoms? : pain MRI T Spine without Contrast; Status:Hold For - Scheduling; Requested for:14Apr2022; Radiologist to Determine Optimal Study : Y Does the patient have a Cochlear Implant, Pacemaker, Defibrilator, Pacing Wire, Brain Aneurysm Clip, Implanted Nerve or Bone Graft Simulator, Implanted Breast Tissue Patient Service Associate, Glucose Monitor, or Neulasta Device? : No What are the patient's signs and symptoms? : pain Start: Pregabalin 25 MG Oral Capsule; TAKE 1 CAPSULE Bedtime Patient Discussion/Summary I discussed with the patient the likely etiology of his symptoms, as well as potential treatment options I reviewed his recent imaging which did not show an obvious cause for his symptoms. We discussed options and I will check some inflammatory markers and we will check thoracic and lumbar MRIs to evaluate for neural impingement and/or an occult compression fracture. I went over the pros and cons of this plan and he was in agreement with it. Since he could not tolerate gabapentin I will start him on Lyrica 25 mg at bedtime. Depending on how he progresses we may consider injections and/or therapy but I think it would be premature to do either of those until a cause for his symptoms can be found. I will see him for follow-up after the imaging for repeat evaluation. Over 45 minutes was spent caring for the patient in total. Chief Complaint NEW PATIENT, PRESENTS WITH PAIN TO THE RIGHT SIDE OF HIS CHEST UNDER HIS PECTORAL LINE THAT WRAPS TO THE BACK, HE GETS A SHARP,STABBING PAIN WITH LIFTING, WHEN HE LAYS DOWN THE PAIN IS WORSE WITH A COLD FEELING THROUGHOUT HIS CHEST, HE HASN'T SLEPT FOR THE PAST 7 WEEKS, HIS PAIN IS CONSTANT, THE MELOXICAM SEEMS TO GIVE HIM SOME RELIEF, NO PHYSICAL THERAPY, NO CHIROPRACTIC VISITS, REPOSITIONS OFTEN, THORACIC X-RAY DONE, CT ABDOMEN/PELIVIS DONE, ULTRASOUND OF GALLBLADDER DONE, HIS DISCOMFORT IS ALWAYS AROUND A 2/10 BUT SPIKES AT TIMES This is a 76-year-old male here for a new patient appointment for chief complaint of right-sided mid to low back and rib pain. He rates the pain currently as a 2 out of 10 but at its worst it can get up to a 7-8 out of 10. He reports that this has been going on for 7 weeks. He cannot recall any causative event but reports that the symptoms came on relatively abruptly. He states that the pain starts in the mid to low back and radiates under the right lower ribs anteriorly. He does not have symptoms on the left side. He never had a rash. He states that the symptoms are constant to an extent but are generally worst when he is up and walking. He has been using meloxicam which helps some. He reports the pain impacts his function during the day and keeps him from sleeping at night. He was tried on gabapentin which initially seemed to help but then he developed side effects to it so he had to stop it. He has had a chest x-ray, a thoracic x-ray, and an abdominal CT scan along with a HIDA scan. Thus far no cause for his symptoms has been found. He denies numbness, tingling, weakness, or loss of bladder or bowel control. The patient's past medical, social, and family history along with medications and allergies are available and were reviewed. Adult Risk Screening Living Will. Living Will: Living will on file. Healthcare POA: Health care proxy on file. Domestic Violence Screen: Does not feel threatened or abused physically, emotionally or sexually. Do you feel UNSAFE? The patient feels safe in the home. Depression/Suicide Screening: During the past 2 weeks, the patient has not felt down, depressed or hopeless. During the past 2 weeks, the patient has not felt little interest or pleasure in doing things. He does not have a risk of suicide. He has not had thoughts of harming others. History of Present Illness On a scale of 0 to 10, the patient rates the pain at 2. Pain Location: RIGHT SIDE WRAPPING AROUND TO HIS BACK. Pain Quality: Burning, Stabbing and Tenderness. Pain Radiation: Right Lateral Chest and Right Posterior Chest. Sensory/ Motor: COLD. Timing/Duration: Constant and 6-12 weeks duration. Exacerbating Factors: rest and lifting. Alleviating Factors: Medications, Repositioning. 24 Hour Behavior: Symptoms are worse in the am. Symptoms are worse as the day progresses. Symptoms are worse in the pm. Symptoms are worse when lying down. Effect of Movement on Symptoms: Bending makes symptoms worse. Lyi (more content not included)... Normal [employer] SEDIMENTATION RATE, ERYTHROC YTEon 04-14-2022 SEDIMENTATION RATE, ERYTHROCYTE 24 mm/h High 0 - 20 [facility] Comment on above: Performed By: #### E SRWS #### [facility] [address] [place] [address] Sedimentation Rate, Erythroc yteon 04-14-2022 ESR (Bld) [Velocity] 24 mm/h above high threshold 0 - 20 [facility] Work Phone: Office Visit (Primary Care T xt/Forms)on 04-01-2022 Follow-up visit Diagnoses/Problems Assessed DM2 (diabetes mellitus, type 2) (250.00) (E11.9) Hypertension, essential, benign (401.1) (I10) Hyperlipidemia (272.4) (E78.5) Encounter for prostate cancer screening (V76.44) (Z12.5) Orders DM2 (diabetes mellitus, type 2) Comprehensive Metabolic Panel; Status:Active; Requested for:02Jul2022; Hemoglobin A1C; Status:Active; Requested for:02Jul2022; LDL, Direct, Serum; Status:Active; Requested for:02Jul2022; Encounter for prostate cancer screening Prostate Spec.Ag, Screen; Status:Active; Requested for:02Jul2022; Patient Discussion/Summary Follow-up in June, discontinue gabapentin for now follow-up with pain medicine. Provider Impressions Provider Impressions Free Text Note Form: Patient arrives to the office today for recheck on right chest wall pain. Thoracic spine demonstrates mild degenerative changes, gabapentin did seem to help at first, but now patient is feeling more tired is actually restless at night, try discontinuing medication to see if improves, pain is actually improved with time, has an appointment to see pain medicine on 14 April. 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 We will plan to follow-up in June for regular office visit. Chief Complaint 1 WK F/U History of Present Illness To see pain medicine 04/14 + fatigued, pain in side still there (not as sharp, dull ache), sensitive to touch gabapentin helped at first, worse in the past 2 nights worse if bends over, pain manageable Review of Systems Constitutional: feeling tired, but no fever and no chills. Cardiovascular: chest pain, but no palpitations, no lower extremity edema and no shortness of breath. Gastrointestinal: no abdominal pain, no constipation, no diarrhea, no heartburn, no nausea, no bloating, no rectal pain, no blood in stools, no dysphagia and no vomiting. Musculoskeletal: joint pain localized to one or more joints. 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) Medicare annual wellness visit, subsequent (V70.0) (Z00.00) Obesity (BMI 30-39.9) (278.00) (E66.9) Right-sided chest wall pain (786.52) (R07.89) Sleep apnea (780.57) (G47.30) Surgical History Problems History of Ankle surgery History of Appendectomy History of Cardiac catheterization History of Colonoscopy History of Knee replacement History of Laryngoscopy Family History Mother Family history of acute myocardial infarction (V17.3) (Z82.49) Family history of coronary artery disease (V17.3) (Z82.49) Family history of hypertension (V17.49) (Z82.49) Father Family history of hypertension (V17.49) (Z82.49) Sister Family history of malignant neoplasm of breast (V16.3) (Z80.3) Social History Problems Active advance directive (V49.89) (Z78.9) Denies alcohol consumption (V49.89) (Z78.9) Does not use illicit drugs (V49.89) (Z78.9) Former smoker (V15.82) (Z87.891) No alcohol use No illicit drug use Patient has healthcare proxy and living will (V49.89) (Z78.9) Current Meds Medication NameInstruction Adult Aspirin Regimen 81 MG Oral Tablet Delayed Release Fluticasone Propionate 50 MCG/ACT Nasal SuspensionUSE 1 SPRAY IN EACH NOSTRIL TWICE DAILY. Gabapentin 300 MG Oral Capsuletake 1 capsule by mouth once daily Glimepiride 4 MG Oral TabletTAKE 1 TABLET DAILY. Lisinopril-hydroCHLOROthia zide 10-12.5 MG Oral TabletTAKE 1 TABLET DAILY. Meloxicam 15 MG Oral TabletTAKE 1 TABLET DAILY. Metoprolol Succinate ER 25 MG Oral Tablet Extended Release 24 Hourtake 1 tablet by mouth once daily Omeprazole 40 MG Oral Capsule Delayed ReleaseTAKE 1 CAPSULE Daily Pioglitazone HCl - 30 MG Oral TabletTAKE 1 TABLET ONCE DAILY. Potassium Chloride ER 10 MEQ Oral Tablet Extended Releasetake 1 tablet by mouth once daily Rosuvastatin Calcium 10 MG Oral TabletTAKE 1 TABLET DAILY. Allergies Medication metformin Vitals Vital Signs Recorded: 01Apr2022 10:58AM Heart Rate: 91 Systolic: 140 Diastolic: 60 Height: 5 ft 7 in Weight: 241 lb BMI Calculated: 37.75 kg/m2 BSA Calculated: 2.19 O2 Saturation: 95 Physical Exam Constitutional - Well developed, well nourished, well hydrated and no acute distress. Vital signs reviewed. Pulmonary - No grunting, flaring or retractions. No rales or wheezing. Good air exchange. Cardiovascular - Regular rate and rhythm. No significant murmur. Results/Data Xray T (more content not included)... Normal [facility] Radiologyon 03-26-2022 XR Thoracic spine 3 Views Normal [facility] Work Phone: SPINE, THORACIC, 3 VIEWSon 0 03-26-2022 SPINE, THORACIC, 3 VIEWS Patient Name: DIPTI SIERRA STUDY: SPINE, THORACIC, 3 VIEWS; ; 03/26/2022 9:43 am INDICATION: chest wall pain R07.89: Right-sided chest wall pain. COMPARISON: None. ACCESSION NUMBER(S): [id number] ORDERING CLINICIAN: DAYAMI ROE FINDINGS: Thoracic kyphosis is maintained. Vertebral body heights and disc spaces are within normal limits. No fracture or dislocation. Mild multilevel degenerative change including endplate remodeling and osteophyte formation. Osseous echotexture is within normal limits. Partially imaged mild degenerative changes of the lower cervical spine. Imaged lung farfan are clear. IMPRESSION: No acute findings. Mild multilevel degenerative changes of the thoracic spine. Electronically signed by: CRISTOBAL COTTO MD Normal [facility] Office Visit (Primary Care T xt/Forms)on 03-25-2022 Follow-up visit Diagnoses/Problems Assessed Right-sided chest wall pain (786.52) (R07.89) Orders Right-sided chest wall pain Start: Gabapentin 300 MG Oral Capsule; take 1 capsule by mouth once daily Xray Thoracic Spine 3 View; Status:Hold For - Scheduling; Requested for:[id number]; Radiologist to Determine Optimal Study : Y What are the patient's signs and symptoms? : chest wall pain Pain Management Referral Evaluation and Treatment Evaluate AND Treat Status: Hold For - Scheduling Requested for: [id number] Start: Meloxicam 15 MG Oral Tablet; TAKE 1 TABLET DAILY Patient Discussion/Summary Follow-up in 1 week for pain, start gabapentin at night and meloxicam in morning, we are going to have you see Pain Management for evaluation and x-ray of thoracic spine. Provider Impressions Provider Impressions Free Text Note Form: Patient presents to the office today for reevaluation of right upper quadrant abdominal pain, the pain actually seems as though it may actually be radicular pain from his thoracic spine, describes as a burning sensation is somewhat positional at times, HIDA scan, ultrasound and CT scan of the area of all been normal. Will place on meloxicam 15 mg once a day, placed on gabapentin 300 mg at at bedtime, refer to pain medicine for further evaluation for possible injection check an x-ray specifically of the thoracic spine. Intermittent rapid heartbeat at times especially with exertion and exercise, despite the use of metoprolol. Patient has an appointment to see cardiology in the next few weeks, will try to make sure that we make sure that he has all of the testing that is been done. Follow-up in 1 week to recheck. Chief Complaint 2 WK F/U History of Present Illness NOt as sharp as it was, more dull/burning sensation, times gets worse if bends over, no pain with DB/cough no increase in GERD, nausea or worse after eating ,some bloating after eating, trying to eat less/frequent some better after eating some better if puts pressure on side NSAIDs some help hard to sleep at night, worse at night Review of Systems Constitutional: NAD, no fevers, chills, sweats or fatigue Rep: no cough or shortness of breath Cardio: no chest pain, edema, or palpitations GI: no nausea, vomiting, diarrhea, constipation, or heartburn : normal urine flow and stream, no nocturia or dysuria MS: no joint pain or significant limits of function Skin: no visible rashes or suspicious lesions Neuro: alert and oriented X4, no numbness, tingling or issues with balance Psych: no anxiety or depression 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) Medicare annual wellness visit, subsequent (V70.0) (Z00.00) Obesity (BMI 30-39.9) (278.00) (E66.9) Sleep apnea (780.57) (G47.30) Surgical History Problems History of Ankle surgery History of Appendectomy History of Cardiac catheterization History of Colonoscopy History of Knee replacement History of Laryngoscopy Family History Mother Family history of acute myocardial infarction (V17.3) (Z82.49) Family history of coronary artery disease (V17.3) (Z82.49) Family history of hypertension (V17.49) (Z82.49) Father Family history of hypertension (V17.49) (Z82.49) Sister Family history of malignant neoplasm of breast (V16.3) (Z80.3) Social History Problems Active advance directive (V49.89) (Z78.9) Denies alcohol consumption (V49.89) (Z78.9) Does not use illicit drugs (V49.89) (Z78.9) Former smoker (V15.82) (Z87.891) No alcohol use No illicit drug use Patient has healthcare proxy and living will (V49.89) (Z78.9) Current Meds Medication NameInstruction Adult Aspirin Regimen 81 MG Oral Tablet Delayed Release Fluticasone Propionate 50 MCG/ACT Nasal SuspensionUSE 1 SPRAY IN EACH NOSTRIL TWICE DAILY. Glimepiride 4 MG Oral TabletTAKE 1 TABLET DAILY. Lisinopril-hydroCHLOROthia zide 10-12.5 MG Oral TabletTAKE 1 TABLET DAILY. Metoprolol Succinate ER 25 MG Oral Tablet Extended Release 24 Hourtake 1 tablet by mouth once daily Omeprazole 40 MG Oral Capsule Delayed ReleaseTAKE 1 CAPSULE Daily Pioglitazone HCl - 30 MG Oral TabletTAKE 1 TABLET ONCE DAILY. Potassium Chloride ER 10 MEQ Oral Tablet Extended Releasetake 1 tablet by mouth once daily Rosuvastatin Calcium 10 MG Oral TabletTAKE 1 TABLET DAILY. Allergies Medication metformin Vitals Vital Signs Recorded: 25Mar2022 03:41PM Heart Rate: 97 Systolic: 140 Diastolic: 60 Height: 5 ft 7 in Weight: 238 lb 9 oz BMI Calculated: (more content not included)... [facility] PEL[facility] W IV C [facility] 03-13-2022 CT ABDOMEN AND PELVIS W IV CONTRAST Patient Name: DIPTI SIERRA STUDY: CT ABDOMEN AND PELVIS W IV CONTRAST; 03/13/2022 2:37 pm INDICATION: RUQ abdominal pain K21.9: GERD (gastroesophageal reflux disease) R10.11: Abdominal pain, RUQ (right upper quadrant). COMPARISON: None. ACCESSION NUMBER(S): [id number] ORDERING CLINICIAN: DAYAMI ROE TECHNIQUE: Contiguous axial images of the abdomen and pelvis were obtained after the intravenous administration of 90 mL of Omnipaque 350 contrast. 500 mL of positive contrast was administered. Coronal and sagittal reformatted images were reconstructed from the axial data. FINDINGS: LOWER CHEST: Partially visualized atherosclerotic calcifications of the right coronary artery. There is bibasilar atelectasis. Small hiatal hernia. ABDOMEN/PELVIS: ABDOMINAL WALL: No significant abnormality. LIVER: The liver is normal in size. There is a simple fluid attenuating hepatic segment 1 cyst. There is a right hepatic hypoattenuating lesion too small to characterize but likely represents a cyst. BILE DUCTS: No significant intrahepatic or extrahepatic dilatation. GALLBLADDER: No significant abnormality. SPLEEN: No significant abnormality. PANCREAS: No significant abnormality. ADRENALS: No significant abnormality. KIDNEYS, URETERS, BLADDER: No significant abnormality. REPRODUCTIVE ORGANS: The prostate is enlarged measuring 5.3 x 4.4 cm. VESSELS: Mild atherosclerotic vascular calcifications of the abdominal aorta and its branches. No abdominal aorta aneurysm. There are 2 left renal arteries. The portal and superior mesenteric veins are patent. RETROPERITONEUM/LYMPH NODES: No enlarged lymph nodes. BOWEL/MESENTERY/PERITONEUM : Positive oral contrast opacifies the duodenum, jejunum, and distal ileum. The stomach is decompressed. Descending and sigmoid colon diverticulosis. No inflammatory bowel wall thickening or dilatation. The appendix is surgically absent. No ascites, free air, or fluid collection. MUSCULOSKELETAL: Multilevel degenerative changes of the visualized thoracolumbar spine most prominent at L5-S1 consisting of intervertebral disc space narrowing, vacuum disc phenomenon, and endplate osteophytosis. Diffuse disc bulge and ligamentum flavum thickening at L4-L5 results in severe spinal canal narrowing. No acute osseous abnormality. IMPRESSION: 1. No acute abnormality within the abdomen or pelvis. 2. Colonic diverticulosis without diverticulitis. 3. Prostatomegaly. Correlate with serum PSA. 4. L4-L5 diffuse disc bulge and ligamentum flavum thickening results in severe spinal canal narrowing. I personally reviewed the images/study and I agree with the findings as stated. This study was interpreted at [place], [place]. Electronically signed by: BRENDA LAY MD [facility] CT Abdomen and Pelvis with I V Contraston 03-13-2022 CT Abdomen and Pelvis W contrast IV Normal [facility] Work Phone: BILIARY WITH EF W OR W/O CCK on 03-07-2022 BILIARY WITH EF W OR W/O CCK Patient Name: DIPTI SIERRA STUDY: BILIARY WITH EF W OR W/O CCK; 03/07/2022 10:35 am INDICATION: RUQ abdominal pain, neg US K21.9: GERD (gastroesophageal reflux disease) R10.11: Abdominal pain, RUQ (right upper quadrant). COMPARISON: Gallbladder ultrasound 03/07/2022 ACCESSION NUMBER(S): [id number] ORDERING CLINICIAN: DAYAMI ROE TECHNIQUE: DIVISION OF NUCLEAR MEDICINE HEPATOBILIARY SCAN (HIDA), QUANTITATIVE The patient received an intravenous dose of 5.3 mCi of Tc-99m mebrofenin (Choletec). Sequential images of the upper abdomen were then acquired over the next 60 minutes. An intravenous infusion of the cholecystokinin (CCK) analogue, Sincalide, was then administered followed by an additional period of imaging. Computer quantification of gallbladder emptying was then performed. FINDINGS: Adequate clearance of the cardiac blood pool. Liver is in its normal anatomic position. Gallbladder filling is first visualized at approximately 7 minutes with evidence of radiotracer activity within the small bowel. After Sincalide administration, there is evidence of excretion of radiotracer into the small bowel.. The gallbladder ejection fraction is calculated to be 95 % (normal above 38%). IMPRESSION: Normal HIDA scan without evidence of cystic duct obstruction or biliary dyskinesia (no acute or chronic cholecystitis). I personally reviewed the images/study and I agree with the resident findings as stated. This study was interpreted at [place], [place]. Electronically signed by: PROSPER RAMOS MD Normal [facility] PANELon 2021 Albumin [Mass/Vol] 4.0 g/dL Normal 3.4 - 5.0 [facility] Comment on above: Performed By: #### C RP #### [address] [address] ALP [Catalytic activity/Vol] 73 U/L Normal 33 - 136 [facility] Comment on above: Performed By: #### C RP #### [address] [address] ALT [Catalytic activity/Vol] 14 U/L Normal 10 - 52 [facility] Comment on above: Result Comment: Anais ents treated with Sulfasalazine may generate falsely decreased results for ALT. Performed By: #### C RP #### [address] [address] Anion gap [Moles/Vol] 11 mmol/L Normal 10 - 20 [facility] Comment on above: Performed By: #### C RP #### [address] [address] AST [Catalytic activity/Vol] 17 U/L Normal 9 - 39 [facility] Comment on above: Performed By: #### C RP #### [address] [address] Bilirubin [Mass/Vol] 0.6 mg/dL Normal 0.0 - 1.2 [facility] Comment on above: Performed By: #### C RP #### [address] [place] [address] Calcium [Mass/Vol] 8.8 mg/dL Normal 8.6 - 10.3 [facility] Comment on above: Performed By: #### C RP #### [address] [address] Chloride [Moles/Vol] 99 mmol/L Normal 98 - 107 [facility] Comment on above: Performed By: #### C RP #### [address] [address] Creatinine [Mass/Vol] 1.15 mg/dL Normal 0.50 - 1.30 [facility] Comment on above: Performed By: #### C RP #### [address] [address] GFR/1.73 sq M.predicted among non-blacks MDRD (S/P/Bld) [Vol rate/Area] 67 mL/min/{1.73_m2} Normal >90 [facility] Comment on above: Result Comment: CALC ULATIONS OF ESTIMATED GFR ARE PERFORMED USING THE 2020 CKD-EPI STUDY REFIT EQUATION WITHOUT THE RACE VARIABLE FOR THE IDMS-TRACEABLE CREATININE METHODS. https://jasn.asnjournals.org/content//ASN.125036 8395 Performed By: #### C RP #### [address] [address] Glucose [Mass/Vol] 155 mg/dL High 74 - 99 [facility] Comment on above: Performed By: #### C RP #### [address] [address] HCO3 (Bld) [Moles/Vol] 28 mmol/L Normal 21 - 32 [facility] Comment on above: Performed By: #### C RP #### [address] [address] Potassium [Moles/Vol] 3.6 mmol/L Normal 3.5 - 5.3 [facility] Comment on above: Performed By: #### C RP #### [address] [address] Protein [Mass/Vol] 6.9 g/dL Normal 6.4 - 8.2 [facility] Comment on above: Performed By: #### C RP #### [address] [address] Sodium [Moles/Vol] 134 mmol/L Low 136 - 145 [facility] Comment on above: Performed By: #### C RP #### [address] [address] Urea nitrogen [Mass/Vol] 23 mg/dL Normal 6 - 23 [facility] Comment on above: Performed By: #### C RP #### [address] [address] Laboratory - Chemistry and C hemistry - challengeon 03-07-2022 Albumin BCP dye [Mass/Vol] 4.0 g/dL 3.4 - 5.0 [facility] [[email or web address] [employer] Work Phone: [phone] ALP [Catalytic activity/Vol] 73 U/L 33 - 136 [facility] [place] [place] Work Phone: ALT With P-5'-P [Catalytic activity/Vol] 14 U/L 10 - 52 [facility] [place] [place] Work Phone: Comment on above: Patients treated wit h Sulfasalazine may generate falsely decreased results for ALT. Anion gap [Moles/Vol] 11 mmol/L 10 - 20 [facility] Work Phone: AST With P-5'-P [Catalytic activity/Vol] 17 U/L 9 - 39 [facility] [email or web address] [employer] Work Phone: Bilirubin [Mass/Vol] 0.6 mg/dL 0.0 - 1.2 [facility] [employer] [facility] Work Phone: Calcium [Mass/Vol] 8.8 mg/dL 8.6 - 10.3 [facility] ical [employer] Work Phone: Chloride [Moles/Vol] 99 mmol/L 98 - 107 [facility] [employer] [facility] Work Phone: CO2 [Moles/Vol] 28 mmol/L 21 - 32 [facility] Work Phone: Creatinine [Mass/Vol] 1.15 mg/dL See Below [facility] [[email or web address]] [employer] [facility] Work Phone: Comment on above: Reference Range: 0.5 0 - 1.30 Glucose [Mass/Vol] 155 mg/dL above high threshold 74 - 99 [facility] [place] [place] Work Phone: Potassium [Moles/Vol] 3.6 mmol/L 3.5 - 5.3 [facility] [[email or web address]] [facility] [employer] Work Phone: Protein [Mass/Vol] 6.9 g/dL 6.4 - 8.2 [facility] [place] [facility] Work Phone: Sodium [Moles/Vol] 134 mmol/L below low threshold 136 - 145 [facility] [place] [place] Work Phone: Urea nitrogen [Mass/Vol] 23 mg/dL 6 - 23 [facility] [place] [place] Work Phone: NM Biliary with EF w/wo CCKo n 03-07-2022 NM Biliary with EF w/wo CCK Normal [facility] [place] [place] Work Phone: No Panel Informationon 03-07 67 {mL/min/1.73m2} >90 [facility] [place] [facility] [place] Work [place]: Comment on above: CALCULATIONS OF ROD MATED GFR ARE PERFORMED USING THE 2020 CKD-EPI STUDY REFIT EQUATION WITHOUT THE RACE VARIABLE FOR THE IDMS-TRACEABLE CREATININE METHODS.https://jasn.asnjournals.org/content/early// N.9640474452 Radiologyon 02-26-2022 US Gallbladder Normal [facility] [[email or web address] Work Phone: US GALLBLADDERon 02-26-2022 US GALLBLADDER Patient Name: DIPTI SIERRA STUDY: US GALLBLADDER 02/26/2022 7:14 am INDICATION: 76 y/o M with RUQ abdominal pain R10.11: Abdominal pain, RUQ (right upper quadrant). COMPARISON: None. ACCESSION NUMBER(S): [id number] ORDERING CLINICIAN: DAYAMI ROE TECHNIQUE: Routine ultrasound of the right upper quadrant was performed. Static images were obtained for remote interpretation. FINDINGS: LIVER: Craniocaudal length: 15 cm, within normal limits of size for age. Echogenicity: Hyperechoic potentially related to fatty infiltration. Mass: None. BILE DUCTS: Intrahepatic ducts: Non-dilated. Common bile duct diameter: 5 mm. GALLBLADDER: Gallbladder: Normal. Gallstones: None. Gallbladder sludge: None. Gallbladder wall thickening: None. Pericholecystic fluid: None. PANCREAS: Obscured by gas RIGHT KIDNEY: Craniocaudal length: 12 cm, within normal limits of size for age. No hydronephrosis, hydroureter or focal renal lesion. PERITONEAL FLUID: None seen in the right upper quadrant. IMPRESSION: Hyperechoic liver may indicate fatty infiltration. Otherwise unremarkable ultrasound of the right upper quadrant. Electronically signed by: VALENTINA SIDDIQUI MD [facility] [facility] Office Visit (Primary Care T xt/Forms)on 02-21-2022 Follow-up visit Diagnoses/Problems Assessed GERD (gastroesophageal reflux disease) (530.81) (K21.9) Abdominal pain, RUQ (right upper quadrant) (789.01) (R10.11) Orders Abdominal pain, RUQ (right upper quadrant) Ultrasound Gallbladder; Status:Hold For - Scheduling; Requested for:[id number]; Radiologist to Determine Optimal Study : Y What are the patient's signs and symptoms? : RUQ abdominal pain Patient Discussion/Summary Follow-up as needed, get US of gallbladder Provider Impressions Provider Impressions Free Text Note Form: Patient arrives to the office today for evaluation of right upper quadrant abdominal pain been there for little over a month, had a heart catheterization in the past month that demonstrated stenosis less than 70% no stent needed. Worse after eating sometimes wakes him up at night, he does have no pain on examination today, concerned about gallbladder issues to check an ultrasound of the gallbladder, if negative will consider doing a HIDA scan. If all testing comes back normal consider doing CT scan of the area. Chief Complaint PAIN RT SIDE PAIN [id number] RUQ History of Present Illness not sleeping well at night, 1.5 weeks with pain in RUQ, getting worse, radiates to side and back, comes and goes, sensitive to touch, ate some chili last night, made worse, used some OTC AA with some help, had a hard time sleeping last night, drank some mild with help, no burping or belching, worse after eating Review of Systems Constitutional: NAD, no fevers, chills, sweats or fatigue Rep: no cough or shortness of breath Cardio: no chest pain, edema, or palpitations GI: no nausea, vomiting, diarrhea, constipation, or heartburn : normal urine flow and stream, no nocturia or dysuria MS: no joint pain or significant limits of function Skin: no visible rashes or suspicious lesions Neuro: alert and oriented X4, no numbness, tingling or issues with balance Psych: no anxiety or depression Active Problems Problems DM2 (diabetes mellitus, type 2) (250.00) (E11.9) Encounter for immunization (V03.89) (Z23) Encounter for prostate cancer screening (V76.44) (Z12.5) Finger wound, simple, open (883.0) (S61.209A) Generalized osteoarthritis of multiple sites (715.09) (M15.9) GERD (gastroesophageal reflux disease) (530.81) (K21.9) Hyperlipidemia (272.4) (E78.5) Hypertension, essential, benign (401.1) (I10) Insomnia disorder (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) Medicare annual wellness visit, subsequent (V70.0) (Z00.00) Obesity (BMI 30-39.9) (278.00) (E66.9) Sleep apnea (780.57) (G47.30) Surgical History Problems History of Ankle surgery History of Appendectomy History of Cardiac catheterization History of Colonoscopy History of Knee replacement History of Laryngoscopy Family History Mother Family history of acute myocardial infarction (V17.3) (Z82.49) Family history of coronary artery disease (V17.3) (Z82.49) Family history of hypertension (V17.49) (Z82.49) Father Family history of hypertension (V17.49) (Z82.49) Sister Family history of malignant neoplasm of breast (V16.3) (Z80.3) Social History Problems Active advance directive (V49.89) (Z78.9) Denies alcohol consumption (V49.89) (Z78.9) Does not use illicit drugs (V49.89) (Z78.9) Former smoker (V15.82) (Z87.891) No alcohol use No illicit drug use Patient has healthcare proxy and living will (V49.89) (Z78.9) Current Meds Medication NameInstruction Adult Aspirin Regimen 81 MG Oral Tablet Delayed Release Fluticasone Propionate 50 MCG/ACT Nasal SuspensionUSE 1 SPRAY IN EACH NOSTRIL TWICE DAILY. Glimepiride 4 MG Oral TabletTAKE 1 TABLET DAILY. Lisinopril-hydroCHLOROthia zide 10-12.5 MG Oral TabletTAKE 1 TABLET DAILY. Metoprolol Succinate ER 25 MG Oral Tablet Extended Release 24 Hourtake 1 tablet by mouth once daily Omeprazole 40 MG Oral Capsule Delayed ReleaseTAKE 1 CAPSULE Daily Pioglitazone HCl - 30 MG Oral TabletTAKE 1 TABLET ONCE DAILY. Potassium Chloride ER 10 MEQ Oral Tablet Extended Releasetake 1 tablet by mouth once daily Rosuvastatin Calcium 10 MG Oral TabletTAKE 1 TABLET DAILY. Allergies Medication metformin Vitals Vital Signs Recorded: 21Feb2022 11:25AM Heart Rate: 80 Systolic: 140 Diastolic: 60 Height: 5 ft 7 in Weight: 238 lb 8 oz BMI Calculated: 37.35 kg/m2 BSA Calculated: 2.18 O2 Saturation: 94 Physical Exam Gen: Alert and oriented, no acute distress HEENT: normal TMs/external ear, conjunctiva normal, PERRLA/EOMI, neck supple, no lymphadenopathy or thyromegaly Resp: clear to auscultation, no audible wheezes, rales, or rhonchi, normal chest movement Cardio: regular rate and rhythm, no murmur, clicks or gallops heard, normal peripheral pulses, no edema Abdomen: normal bowel sounds, soft, non tender, non distended, no organomegaly, negative Cassidy sign Skin: no visible rashes or abnormal skin lesions, warm and dry Neruo: Alert and oriented, normal gross movement of extremities Psych: cooperativ (more content not included)... [facility] Office Visit (Primary Care T xt/Forms)on 01-22-2022 Follow-up visit Diagnoses/Problems Assessed DM2 (diabetes mellitus, type 2) (250.00) (E11.9) Hypertension, essential, benign (401.1) (I10) Hyperlipidemia (272.4) (E78.5) Sleep apnea (780.57) (G47.30) GERD (gastroesophageal reflux disease) (530.81) (K21.9) Orders DM2 (diabetes mellitus, type 2) Renew: Glimepiride 4 MG Oral Tablet; TAKE 1 TABLET DAILY Renew: Pioglitazone HCl - 30 MG Oral Tablet; TAKE 1 TABLET ONCE DAILY GERD (gastroesophageal reflux disease) Renew: Omeprazole 40 MG Oral Capsule Delayed Release; TAKE 1 CAPSULE Daily Hyperlipidemia Renew: Rosuvastatin Calcium 10 MG Oral Tablet; TAKE 1 TABLET DAILY Hypertension, essential, benign Start: Metoprolol Succinate ER 25 MG Oral Tablet Extended Release 24 Hour; take 1 tablet by mouth once daily Patient Discussion/Summary Follow-up in 1 month for shortness of breath, start metoprolol and see formulation technician next week Provider Impressions Provider Impressions Free Text Note Form: Patient arrives to the office today 6-month follow-up for chronic medical problems. Laboratory testing reviewed with patient, A1c testing up slightly over 7, lipid profile is good, renal liver function testing is normal, he is compliant with CPAP therapy. Patient has been to 2 different emergency rooms in the past couple weeks with increasing shortness of breath, change in exercise tolerance and not feeling well and feeling more fatigued. Very concerned about possible heart issues, troponins and EKG and chest x-ray in the emergency room were all negative, he has an appointment to see cardiology next week, was encouraged to keep this appointment, was advised that he probably needs an echocardiogram and a stress test. We will start the patient on metoprolol 25 mg once a day, recheck in 1 month, if no solutions through cardiology will pursue other evaluations for the patient's dyspnea. May need to adjust medications if he does have heart disease. Chief Complaint 6 MO F/U REV LABS History of Present Illness No low blood sugars since last OV, seen opthalmology in the past year, and no numbness or tingling in feet, skin normal. No headache, chest pain, more shortness of breath,not dizziness, lightheadedness, or edema Taking PPI daily without breakthrough symptoms. Reviewed dietary, caffeine, tobacco, alcohol, and NSAID use. No dyspepsia, dysphagia, reflux, melena, or abdominal pain. Seen in ER 01/06/22, has been having a hard time sleeping at night since November has been noticing more FERNANDEZ, palpitations, fatigue and change in exercise tolerance to see [facility] on January 28 at [facility] went to ER at [place] after, gave MDI to use, has not used no cough or wheeze, some numbness in left hand at times Patient has been using their CPAP nightly and is experiencing restful sleep, no morning headaches, no witnessed snoring, and notices a difference if they do not use the device. Review of Systems Constitutional: NAD, no fevers, chills, sweats or fatigue Rep: no cough or shortness of breath Cardio: no chest pain, edema, or palpitations GI: no nausea, vomiting, diarrhea, constipation, or heartburn : normal urine flow and stream, no nocturia or dysuria MS: no joint pain or significant limits of function Skin: no visible rashes or suspicious lesions Neuro: alert and oriented X4, no numbness, tingling or issues with balance Psych: no anxiety or depression Active Problems Problems DM2 (diabetes mellitus, type 2) (250.00) (E11.9) Encounter for immunization (V03.89) (Z23) Encounter for prostate cancer screening (V76.44) (Z12.5) Finger wound, simple, open (883.0) (S61.209A) Generalized osteoarthritis of multiple sites (715.09) (M15.9) GERD (gastroesophageal reflux disease) (530.81) (K21.9) Hyperlipidemia (272.4) (E78.5) Hypertension, essential, benign (401.1) (I10) Insomnia disorder (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) Medicare annual wellness visit, subsequent (V70.0) (Z00.00) Obesity (BMI 30-39.9) (278.00) (E66.9) Sleep apnea (780.57) (G47.30) Surgical History Problems History of Ankle surgery History of Appendectomy History of Colonoscopy History of Knee replacement History of Laryngoscopy Family History Mother Family history of acute myocardial infarction (V17.3) (Z82.49) Family history of coronary artery disease (V17.3) (Z82.49) Family history of hypertension (V17.49) (Z82.49) Father Family history of hypertension (V17.49) (Z82.49) Sister Family history of malignant neoplasm of breast (V16.3) (Z80.3) Social History Problems Active advance directive (V49.89) (Z78.9) Denies alcohol consumption (V49.89) (Z78.9) Does not use illicit drugs (V49.89) (Z78.9) Former smoker (V15.82) (Z87.891) No alcohol use No illicit drug use Patient has healthcare proxy and living will (V49.89) (Z78.9) Current Meds Medication NameInstruction Adult Aspirin Regimen 81 MG Oral Tablet Delayed Release Fluticasone Propionate 50 MCG/ACT Nasal SuspensionUSE 1 SPRAY IN EACH NOSTRIL (more content not included)... Normal [employer] Tobacco Screening.on 022 Adult depression screening assessment No [employer] [facility] Work Phone: Fall risk assessment a) No falls within the last year [employer] [facility] Work Phone: Tobacco use status CPHS b) No [employer] [facility] Work Phone: ALBUMIN, URINE SPOTon 2021 ALBUMIN,URINE 11.6 mg/L Normal Not Established [facility] Comment on above: Performed By: #### A LBSP #### [address] [address] ALBUMIN/CREAT RATIO 8.9 ug/mg cycle analyst Normal 0.0 - 30.0 [facility] Comment on above: Performed By: #### A LBSP #### [address] [address] CREATININE,URINE 131.0 mg/dL Normal 20.0 - 370.0 [facility] Comment on above: Performed By: #### A LBSP #### [address] [address] COMPREHENSIVE PANELon 2021 Albumin [Mass/Vol] 4.1 g/dL Normal 3.4 - 5.0 [facility] Comment on above: Performed By: #### C RP #### [address] [address] ALP [Catalytic activity/Vol] 66 U/L Normal 33 - 136 [facility] Comment on above: Performed By: #### C RP #### [address] [address] ALT [Catalytic activity/Vol] 11 U/L Normal 10 - 52 [facility] Comment on above: Result Comment: Anasi ents treated with Sulfasalazine may generate falsely decreased results for ALT. Performed By: #### C RP #### [address] [address] Anion gap [Moles/Vol] 12 mmol/L Normal 10 - 20 [facility] Comment on above: Performed By: #### C RP #### [address] [address] AST [Catalytic activity/Vol] 14 U/L Normal 9 - 39 [facility] Comment on above: Performed By: #### C RP #### [address] [address] Bilirubin [Mass/Vol] 0.6 mg/dL Normal 0.0 - 1.2 [facility] Comment on above: Performed By: #### C RP #### [address] [address] Calcium [Mass/Vol] 9.0 mg/dL Normal 8.6 - 10.3 [facility] Comment on above: Performed By: #### C RP #### [address] [address] Chloride [Moles/Vol] 102 mmol/L Normal 98 - 107 [facility] Comment on above: Performed By: #### C RP #### [address] [address] Creatinine [Mass/Vol] 1.10 mg/dL Normal 0.50 - 1.30 [facility] Comment on above: Performed By: #### C RP #### [address] [address] GFR/1.73 sq M.predicted among non-blacks MDRD (S/P/Bld) [Vol rate/Area] 70 mL/min/{1.73_m2} Normal >90 [facility] Comment on above: Result Comment: CALC ULATIONS OF ESTIMATED GFR ARE PERFORMED USING THE 2020 CKD-EPI STUDY REFIT EQUATION WITHOUT THE RACE VARIABLE FOR THE IDMS-TRACEABLE CREATININE METHODS. https://jasn.asnjournals.org/content/early/ASN.149007 0802 Performed By: #### C RP #### [address] [address] Glucose [Mass/Vol] 108 mg/dL High 74 - 99 [facility] Comment on above: Performed By: #### C RP #### [address] [address] HCO3 (Bld) [Moles/Vol] 29 mmol/L Normal 21 - 32 [facility] Comment on above: Performed By: #### C RP #### [address] [address] Potassium [Moles/Vol] 3.9 mmol/L Normal 3.5 - 5.3 [facility] Comment on above: Performed By: #### C RP #### [address] [address] Protein [Mass/Vol] 7.1 g/dL Normal 6.4 - 8.2 [facility] Comment on above: Performed By: #### C RP #### [address] [address] Sodium [Moles/Vol] 139 mmol/L Normal 136 - 145 [facility] Comment on above: Performed By: #### C RP #### [address] [address] Urea nitrogen [Mass/Vol] 20 mg/dL Normal 6 - 23 [facility] Comment on above: Performed By: #### C RP #### [address] [address] HEMOGLOBIN A1Con 01-15-2022 Glucose [Mass/Vol] 157 mg/dL Normal [facility] Comment on above: Performed By: #### C RP #### [address] [address] HbA1c (Bld) [Mass fraction] 7.1 % Abnormal [facility] Comment on above: Result Comment: Diag nosis of Diabetes-Adults Non-Diabetic: < or = 5.6% Increased risk for developing diabetes: 5.7-6.4% Diagnostic of diabetes: > or = 6.5% . Monitoring of Diabetes Age (y) Therapeutic Goal (%) Adults: >18 <7.0 Pediatrics: 13-18 <7.5 7-12 <8.0 0- 6 7.5-8.5 [place] [employer]. Diabetes Care 33(S1), Jun 2009. Performed By: #### C RP #### [facility] [address] [place] [address] Hemoglobin A1Con 01-15-2022 Glucose [Mass/Vol] 157 mg/dL [employer] [facility] Work Phone: HbA1c (Bld) [Mass fraction] 7.1 % Abnormal [facility] [place] [place] Work Phone: Comment on above: Diagnosis of Diabete s-Adults Non-Diabetic: < or = 5.6% Increased risk for developing diabetes: 5.7-6.4% Diagnostic of diabetes: > or = 6.5%. Monitoring of Diabetes Age (y) Therapeutic Goal (%) Adults: >18 <7.0 Pediatrics: 13-18 <7.5 7-12 <8.0 0- 6 7.5-8.5 [employer] [employer]. Diabetes Care 33(S1), Jun 2009. LIPID PANEL (CORONARY RISK 2 )on 01-15-2022 Cholesterol [Mass/Vol] 128 mg/dL Normal 0 - 199 [facility] Comment on above: Result Comment: . AGE DESIRABLE BORDERLINE HIGH HIGH 0-19 Y 0 - 169 170 - 199 >/= 200 20-24 Y 0 - 189 190 - 224 >/= 225 >24 Y 0 - 199 200 - 239 >/= 240 All ranges are based on fasting samples. Specific therapeutic targets will vary based on patient-specific cardiac risk. . Pediatric guidelines reference:Pediatrics 2011, 128(S5). Adult guidelines reference: NCEP ATPIII Guidelines, MARISA 2001, 258:2486-97 . Venipuncture immediately after or during the administration of Metamizole may lead to falsely low results. Testing should be performed immediately prior to Metamizole dosing. Performed By: #### C RP #### [address] [address] Cholesterol in HDL [Mass/Vol] 44.0 mg/dL Normal [facility] Comment on above: Result Comment: . AGE VERY LOW LOW NORMAL HIGH 0-19 Y < 35 < 40 40-45 ---- 20-24 Y ---- < 40 >45 ---- >24 Y ---- < 40 40-60 >60 . Performed By: #### C RP #### [address] [address] Cholesterol in LDL [Mass/Vol] 57 mg/dL Normal 0 - 99 [facility] Comment on above: Result Comment: . NEAR BORD AGE DESIRABLE OPTIMAL HIGH HIGH VERY HIGH 0-19 Y 0 - 109 --- 110-129 >/= 130 ---- 20-24 Y 0 - 119 --- 120-159 >/= 160 ---- >24 Y 0 - 99 100-129 130-159 160-189 >/=190 . Performed By: #### C RP #### [address] [address] Cholesterol in VLDL [Mass/Vol] 27 mg/dL Normal 0 - 40 [facility] Comment on above: Performed By: #### C RP #### [address] [address] Cholesterol.total/Cho lesterol in HDL [Mass ratio] 2.9 {ratio} Normal [facility] Comment on above: Result Comment: REF VALUES DESIRABLE < 3.4 HIGH RISK > 5.0 Performed By: #### C RP #### [address] [address] Triglyceride [Mass/Vol] 135 mg/dL Normal 0 - 149 [facility] Comment on above: Result Comment: . AGE DESIRABLE BORDERLINE HIGH HIGH VERY HIGH 0 D-90 D 19 - 174 ---- ---- ---- 91 D- 9 Y 0 - 74 75 - 99 >/= 100 ---- 10-19 Y 0 - 89 90 - 129 >/= 130 ---- 20-24 Y 0 - 114 115 - 149 >/= 150 ---- >24 Y 0 - 149 150 - 199 200- 499 >/= 500 . Venipuncture immediately after or during the administration of Metamizole may lead to falsely low results. Testing should be performed immediately prior to Metamizole dosing. Performed By: #### C #### [facility] [address] [place] [address] Laboratory - Chemistry and C hemistry - challengeon 01-15-2022 Albumin BCP dye [Mass/Vol] 4.1 g/dL 3.4 - 5.0 [employer] [facility] Work Phone: Albumin Ql (U) 11.6 mg/L See Below [facility] [email or web address]][employer] [facility] Work Phone: Comment on above: Reference Range: Not Established Albumin/Creatinine DL <= 20 mg/L (U) [Mass ratio] 8.9 {ug/mg_crt} 0.0 - 30.0 [facility] [email or web address]][employer] [facility] Work Phone: ALP [Catalytic activity/Vol] 66 U/L 33 - 136 [facility] [employer] [facility] Work Phone: ALT With P-5'-P [Catalytic activity/Vol] 11 U/L 10 - 52 [facility] [[email or web address]][employer] Work Phone: Comment on above: Patients treated wit h Sulfasalazine may generate falsely decreased results for ALT. Anion gap [Moles/Vol] 12 mmol/L 10 - 20 [employer] Work Phone: [phone] AST With P-5'-P [Catalytic activity/Vol] 14 U/L 9 - 39 [facility] [email or web address]][employer] [facility] Work Phone: Bilirubin [Mass/Vol] 0.6 mg/dL 0.0 - 1.2 [facility] [facility] [employer] [facility] Work Phone: Calcium [Mass/Vol] 9.0 mg/dL 8.6 - 10.3 [facility] [employer] [facility] Work Phone: Chloride [Moles/Vol] 102 mmol/L 98 - 107 -[facility] Work Phone: CO2 [Moles/Vol] 29 mmol/L 21 - 32 -[facility] Work Phone: Creatinine (U) [Mass/Vol] 131.0 mg/dL See Below [facility] [email or web address] Work Phone: Comment on above: Reference Range: 20. 0 - 370.0 Creatinine [Mass/Vol] 1.10 mg/dL See Below [facility] [[email or web address]] [facility] Work Phone: Comment on above: Reference Range: 0.5 0 - 1.30 Glucose [Mass/Vol] 108 mg/dL above high threshold 74 - 99 [facility] [[email or web address] Work Phone: Potassium [Moles/Vol] 3.9 mmol/L 3.5 - 5.3 - [facility] Work Phone: Protein [Mass/Vol] 7.1 g/dL 6.4 - 8.2 -[facility] Work Phone: Sodium [Moles/Vol] 139 mmol/L 136 - 145 -[facility] Work Phone: Urea nitrogen [Mass/Vol] 20 mg/dL 6 - 23 -Medical [employer] Work Phone: Lipid Panelon 01-15-2022 Cholesterol [Mass/Vol] 128 mg/dL 0 - 199 -[facility] Work Phone: Comment on above: . AGE DESIRABLE BORD PJ HIGH HIGH 0-19 Y 0 - 169 170 - 199 >/= 200 20-24 Y 0 - 189 190 - 224 >/= 225 >24 Y 0 - 199 200 - 239 >/= 240 All ranges are based on fasting samples. Specific therapeutic targets will vary based on patient-specific cardiac risk.. Pediatric guidelines reference:Pediatrics 2011, 128(S5). Adult guidelines reference: NCEP ATPIII Guidelines, MARISA 2001, 258:2486-97. Venipuncture immediately after or during the administration of Metamizole may lead to falsely low results. Testing should be performed immediately prior to Metamizole dosing. Cholesterol in HDL [Mass/Vol] 44.0 mg/dL [employer] [facility] Work Phone: Comment on above: . AGE VERY LOW LOW N ORMAL HIGH 0-19 Y < 35 < 40 40-45 ---- 20- 24 Y ---- < 40 >45 ---- >24 Y ---- < 40 40-60 >60. Cholesterol in LDL [Mass/Vol] 57 mg/dL 0 - 99 [employer] [facility] Work Phone: Comment on above: . NEAR BORD AGE HUGO RABLE OPTIMAL HIGH HIGH VERY HIGH 0-19 Y 0 - 109 --- 110-129 >/= 130 ---- 20-24 Y 0 - 119 --- 120-159 >/= 160 ---- >24 Y 0 - 99 100-129 130-159 160-189 >/=190. Cholesterol.total/Cho lesterol in HDL [Mass ratio] 2.9 {ratio} [employer] [facility] Work Phone: Comment on above: REF VALUESDESIRABLE < 3.4HIGH RISK > 5.0 Triglyceride [Mass/Vol] 135 mg/dL 0 - 149 [employer] [facility] Work Phone: Comment on above: . AGE DESIRABLE BORD PJ HIGH HIGH VERY HIGH 0 D-90 D 19 - 174 ---- ---- ----91 D- 9 Y 0 - 74 75 - 99 >/= 100 ---- 10-19 Y 0 - 89 90 - 129 >/= 130 ---- 20-24 Y 0 - 114 115 - 149 >/= 150 ---- >24 Y 0 - 149 150 - 199 200- 499 >/= 500. Venipuncture immediately after or during the administration of Metamizole may lead to falsely low results. Testing should be performed immediately prior to Metamizole dosing. Lipid Panel 27 mg/dL 0 - 40 [employer] [facility] Work Phone: No Panel Informationon 01-15 70 {mL/min/1.73m2} >90 [employer] [facility] Work Phone: Comment on above: CALCULATIONS OF ROD MATED GFR ARE PERFORMED USING THE 2020 CKD-EPI STUDY REFIT EQUATION WITHOUT THE RACE VARIABLE FOR THE IDMS-TRACEABLE CREATININE METHODS.https://jasn.asnjournals.org/content/early/ N.3452329878 TSHon 01-15-2022 TSH Qn 1.57 m[IU]/L Normal 0.44 - 3.98 [facility] Comment on above: Result Comment: TSH testing is performed using different testing methodology at [facility] than at other [facility]. Direct result comparisons should only be made within the same method. Performed By: #### C RP #### [place] [address] TSH - Thyroid Stimulating Ho monse, Serumon 01-15-2022 TSH Qn 1.57 m[IU]/L See Below [facility] Work Phone: Comment on above: Reference Range: 0.4 4 - 3.98 TSH testing is performed using different testing methodology at [facility] than at [facility]. Direct result comparisons should only be made within the same method. Office Visit (Primary Care T xt/Forms)on 08-08-2021 Follow-up visit Diagnoses/Problems Assessed Finger wound, simple, open (883.0) (S61.154D) Orders Encounter for immunization Temporarily Stop: Influenza, seasonal, injectable Provider Impressions Provider Impressions Free Text Note Form: recommended soaking finger in warm h20 AND mild soap daily apply bacitracin oint, bid to wound recommended protecting tip of thumb from injury with a finger splint instructed to call if develops redness/edema/drainage from wound Chief Complaint [facility] ER FU L THUMB LACERATION History of Present Illness Dipti comes to office after cutting finger on Thursday w/ a table saw. Was seen @ [facility] and wound was cleansed AND he received his Tetanus shot. Minimal pain. No drainage. No F/C. Review of Systems Constitutional: no fever and no chills. Integumentary: skin wound, but as noted in HPI . L tip of thumb. Active Problems Problems DM2 (diabetes mellitus, type 2) (250.00) (E11.9) Encounter for immunization (V03.89) (Z23) Encounter for prostate cancer screening (V76.44) (Z12.5) Generalized osteoarthritis of multiple sites (715.09) (M15.9) GERD (gastroesophageal reflux disease) (530.81) (K21.9) Hyperlipidemia (272.4) (E78.5) Hypertension, essential, benign (401.1) (I10) Insomnia disorder (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) Medicare annual wellness visit, subsequent (V70.0) (Z00.00) Obesity (BMI 30-39.9) (278.00) (E66.9) Sleep apnea (780.57) (G47.30) Surgical History Problems History of Ankle surgery History of Appendectomy History of Colonoscopy History of Knee replacement History of Laryngoscopy Family History Mother Family history of acute myocardial infarction (V17.3) (Z82.49) Family history of coronary artery disease (V17.3) (Z82.49) Family history of hypertension (V17.49) (Z82.49) Father Family history of hypertension (V17.49) (Z82.49) Sister Family history of malignant neoplasm of breast (V16.3) (Z80.3) Social History Problems Active advance directive (V49.89) (Z78.9) Denies alcohol consumption (V49.89) (Z78.9) Does not use illicit drugs (V49.89) (Z78.9) Former smoker (V15.82) (Z87.891) No alcohol use No illicit drug use Patient has healthcare proxy and living will (V49.89) (Z78.9) Current Meds Medication NameInstruction Adult Aspirin Regimen 81 MG Oral Tablet Delayed Release Fluticasone Propionate 50 MCG/ACT Nasal SuspensionUSE 1 SPRAY IN EACH NOSTRIL TWICE DAILY. Glimepiride 4 MG Oral TabletTAKE 1 TABLET DAILY. Lisinopril-hydroCHLOROthia zide 10-12.5 MG Oral TabletTAKE 1 TABLET DAILY. Omeprazole 40 MG Oral Capsule Delayed ReleaseTAKE 1 CAPSULE Daily Pioglitazone HCl - 30 MG Oral TabletTAKE 1 TABLET ONCE DAILY. Potassium Chloride ER 10 MEQ Oral Tablet Extended Releasetake 1 tablet by mouth once daily Rosuvastatin Calcium 10 MG Oral TabletTAKE 1 TABLET DAILY. Allergies Medication metformin Vitals Vital Signs Recorded: [id number] 03:13PM Temperature: 96.8 F Heart Rate: 75 Systolic: 134 Diastolic: 68 Height: 5 ft 7 in Weight: 238 lb 3 oz BMI Calculated: 37.31 kg/m2 BSA Calculated: 2.18 Tobacco Use: b) No PHQ-2 #1. Over the last 2 weeks have you felt down, depressed or hopeless? (If yes, answer PHQ-9 below): No PHQ-2 #2. Over the last 2 weeks have you felt little interest or pleasure in doing things? (If yes, answer PHQ-9 below): No Fall Screening: a) No falls within the last year O2 Saturation: 95 Physical Exam General: Alert and oriented. Ambulation status: With steady gait. Behavior: Appropriate. Integumentary: Warm, Dry, Willows, Intact. + tip of L thumb with dried dark red drainage. No circumferential redness or edema noted. No drainage noted. tenderness to touch @ tip of thumb. Neurologic: Alert, Oriented. Signatures Electronically signed by : MONTRELL Coelho; Aug 08 2021 3:40PM EST (Author) Normal [employer] Tobacco Screening.on Adult depression screening assessment No [facility] Work Phone: Fall risk assessment a) No falls within the last year [facility] Work Phone: Tobacco use status [facility] b) No [facility] Work Phone: Medicare Annual Wellness Vis iton 07-25-2021 Medicare Annual Wellness Visit *Chief Complaint 6 MO GERD HL HTN CK REV LABS History of Present Illness The patient is being seen for the subsequent annual wellness visit. Past Medical, Surgical and Family History: reviewed and updated in chart. Medications and Supplements: Review of all medications by a prescribing practitioner or clinical pharmacist (such as prescriptions, OTCs, herbal therapies and supplements) documented in the medical record. No, the patient is not using opioids. Patient Self Assessment of Health Status: good. Tobacco use: Non-User Alcohol use: Non-User Illicit drug use: Non-User Current diet: well balanced diet. Exercise Frequency: regularly. Depression/Suicide Screening: . During the past 2 weeks, the patient has not felt down, depressed or hopeless. During the past 2 weeks, the patient has not felt little interest or pleasure in doing things. Hearing Impairment: none. Cognitive Impairment: No cognitive impairment observed. Bathing: performs independently. Dressing: performs independently. Walking: performs independently. Managing Finances: performs independently. Shopping: performs independently. Managing Medications: performs independently. Housework / Basic Home Maintenance: performs independently. Falls Risk Screening:. DIPTI has not fallen in the last 6 months. Home safety risk factors: none. Advance directives:. Patient has living will. Placed in chart. Patient's End of Life Decisions: End of life decisions were reviewed with the patient. I agree to follow the patient's decisions. No low blood sugars since last OV, seen opthalmology in the past year, and no numbness or tingling in feet, skin normal. No headache, chest pain, shortness of breath, dizziness, lightheadedness, or edema Review of Systems Constitutional: NAD, no fevers, chills, sweats or fatigue Rep: no cough or shortness of breath Cardio: no chest pain, edema, or palpitations GI: no nausea, vomiting, diarrhea, constipation, or heartburn : normal urine flow and stream, no nocturia or dysuria MS: no joint pain or significant limits of function Skin: no visible rashes or suspicious lesions Neuro: alert and oriented X4, no numbness, tingling or issues with balance Psych: no anxiety or depression *Active Problems DM2 (diabetes mellitus, type 2) (250.00) (E11.9) Encounter for immunization (V03.89) (Z23) Encounter for prostate cancer screening (V76.44) (Z12.5) Generalized osteoarthritis of multiple sites (715.09) (M15.9) GERD (gastroesophageal reflux disease) (530.81) (K21.9) Hyperlipidemia (272.4) (E78.5) Hypertension, essential, benign (401.1) (I10) Insomnia disorder (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) Medicare annual wellness visit, subsequent (V70.0) (Z00.00) Obesity (BMI 30-39.9) (278.00) (E66.9) Sleep apnea (780.57) (G47.30) Surgical History History of Ankle surgery With plate - Dr. Gonsalves History of Appendectomy History of Colonoscopy [place], 2019, +polyp (3 years) History of Knee replacement right knee per [facility] no details of date History of Laryngoscopy Dr. Whitfield's office Family History Family history of acute myocardial infarction (V17.3) (Z82.49) Family history of coronary artery disease (V17.3) (Z82.49) Family history of hypertension (V17.49) (Z82.49) Family history of hypertension (V17.49) (Z82.49) Family history of malignant neoplasm of breast (V16.3) (Z80.3) Social History Active advance directive (V49.89) (Z78.9) Denies alcohol consumption (V49.89) (Z78.9) Does not use illicit drugs (V49.89) (Z78.9) Former smoker (V15.82) (Z87.891) No alcohol use No illicit drug use Patient has healthcare proxy and living will (V49.89) (Z78.9) *Allergies metformin Diarrhea; Nausea; Recorded By: Bhavna Gamez; 06/16/2019 11:38:41 AM Additional reactions - C/O - a headache *Current Meds Medication NameInstruction Adult Aspirin Regimen 81 MG Oral Tablet Delayed Release Fluticasone Propionate 50 MCG/ACT Nasal SuspensionUSE 1 SPRAY IN EACH NOSTRIL TWICE DAILY. Glimepiride 4 MG Oral TabletTAKE 1 TABLET DAILY. Lisinopril-hydroCHLOROthia zide 10-12.5 MG Oral TabletTAKE 1 TABLET DAILY. Omeprazole 40 MG Oral Capsule Delayed ReleaseTAKE 1 CAPSULE Daily Pioglitazone HCl - 30 MG Oral TabletTAKE 1 TABLET ONCE DAILY. Potassium Chloride ER 10 MEQ Oral Tablet Extended Releasetake 1 tablet by mouth once daily Rosuvastatin Calcium 10 MG Oral TabletTAKE 1 TABLET DAILY. Immunizations Influenza --- Series1: 21-Jul-2019 Moderna COVID-19 Vaccine 100 MCG/0.5ML Intramuscular Suspension --- Series1: 30-Aug-2020; Series2: 27-Sep-2020; Series3: 04-May-2021 PCV --- Series1: 10-Jun-2016; Series2: 21-Jul-2019 PPSV --- Series1: 12-Nov-2012 Patient Care Team Care Team MemberRoleSpecialtyOffice Number Bhupinder RODRIGUEZ, Dayami Carmen Care ProviderAtrium Health Navicent [phone] Roseann RODRIGUEZ, Darin Farmer Vitals Vital Signs Recorded: 25Jul2021 10:05AM Coqjnlfurra71.2 F Heart Rate94 Systo (more content not included)... Normal [facility] Tobacco Screening.on 022 Adult depression screening assessment No [employer] [facility] Work Phone: Fall risk assessment a) No falls within the last year [facility] Work Phone: Tobacco use status [facility] b) No [facility] Work Phone: Hemoglobin A1Con 06-12-2021 Glucose [Mass/Vol] 146 mg/dL [email or web address] [employer] [facility] Work Phone: HbA1c (Bld) [Mass fraction] 6.7 % Abnormal [facility] Work Phone: Comment on above: Diagnosis of Diabete s-Adults Non-Diabetic: < or = 5.6% Increased risk for developing diabetes: 5.7-6.4% Diagnostic of diabetes: > or = 6.5%. Monitoring of Diabetes Age (y) Therapeutic Goal (%) Adults: >18 <7.0 Pediatrics: 13-18 <7.5 7-12 <8.0 0- 6 7.5-8.5 [place] [employer]. Diabetes Care 33(S1), Jun 2009. LDL, Direct, Serumon 021 Cholesterol in LDL [Mass/Vol] 74 mg/dL 0 - 129 [facility] Work Phone: Comment on above: Elevated levels of L DL cholesterol are recognized as a lopez factor in the development of atherosclerosis and CHD. The direct LDL cholesterol test can be used to assess cardiovascular risk and monitor therapy as a follow up to a lipid profile when triglycerides are significantly elevated. Laboratory - Chemistry and C hemistry - challengeon 06-12-2021 Albumin BCP dye [Mass/Vol] 4.0 g/dL 3.4 - 5.0 [facility] Work Phone: ALP [Catalytic activity/Vol] 65 U/L 33 - 136 [facility] Work Phone: ALT With P-5'-P [Catalytic activity/Vol] 12 U/L 10 - 52 [facility] Work Phone: Comment on above: Patients treated wit h Sulfasalazine may generate falsely decreased results for ALT. Anion gap [Moles/Vol] 9 mmol/L below low threshold 10 - 20 -[facility] Work Phone: AST With P-5'-P [Catalytic activity/Vol] 16 U/L 9 - 39 -Medical [employer] Work Phone: Bilirubin [Mass/Vol] 0.7 mg/dL 0.0 - 1.2 [facility] [employer] [facility] Work Phone: Calcium [Mass/Vol] 9.2 mg/dL 8.6 - 10.3 -[facility] [employer] [facility] Work Phone: Chloride [Moles/Vol] 101 mmol/L 98 - 107 [facility] Work Phone: CO2 [Moles/Vol] 30 mmol/L 21 - 32 [facility] [employer] [facility] Work Phone: Creatinine [Mass/Vol] 0.95 mg/dL See Below - [facility] Work Phone: Comment on above: Reference Range: 0.5 0 - 1.30 Glucose [Mass/Vol] 132 mg/dL above high threshold 74 - 99 -[facility] Work Phone: Potassium [Moles/Vol] 4.0 mmol/L 3.5 - 5.3 [facility] [[email or web address]] [facility] Work Phone: Protein [Mass/Vol] 7.2 g/dL 6.4 - 8.2 [facility] ical [employer] [facility] Work Phone: Sodium [Moles/Vol] 136 mmol/L 136 - 145 [employer] [facility] Work Phone: Urea nitrogen [Mass/Vol] 16 mg/dL [employer] [facility] Work Phone: No Panel Informationon 06-12 >60 >60 [facility] Work Phone: Comment on above: CALCULATIONS OF ROD MATED GFR ARE PERFORMED USING THE MDRD STUDY EQUATION FOR THE IDMS-TRACEABLE CREATININE METHODS. CLIN CHEM 2007;53:766-72 Prostate Spec.Ag, Screenon 1 08-13-2020 Prostate specific Ag [Mass/Vol] 3.39 ng/mL See Below [facility] Work Phone: Comment on above: Reference Range: 0.0 0 - 4.00The FDA requires that the method used for PSA assay be reported to the physician. Values obtained with different assay methods must not be used interchangeably. This testwas [facility] using the Access Hy[employer]ch PSA assay is a two-site immunoenzymatic sandwich assay. The assay is approved for measurement of prostate-specific antigen (PSA)in serum and may be used in conjunction with a digital rectal examination in men 50 years and older as an aid in detection of prostate cancer.4-Jftks-iykrmlazw inhibitors (e.g. Proscar, Finasteride, Avodart, Dutasteride and Chante) for the treatment of BPH have been shown to lower PSA levels by an average of 50% after 6 months of treatment. Tobacco Screening.on 021 Fall risk assessment a) No falls within the last year [facility] Work Phone: Tobacco use status [facility] b) No [facility] Work Phone: Hemoglobin A1Con 12-19-2020 Glucose [Mass/Vol] 123 mg/dL [employer] [facility] Work Phone: HbA1c (Bld) [Mass fraction] 5.9 % [employer] [facility] Work Phone: Comment on above: Diagnosis of Diabete s-Adults Non-Diabetic: < or = 5.6% Increased risk for developing diabetes: 5.7-6.4% Diagnostic of diabetes: > or = 6.5%. Monitoring of Diabetes Age (y) Therapeutic Goal (%) Adults: >18 <7.0 Pediatrics: 13-18 <7.5 7-12 <8.0 0- 6 7.5-8.5 [place] [employer]. Diabetes Care 33(S1), Jun 2009. Laboratory - Chemistry and C hemistry - challengeon 12-19-2020 Albumin BCP dye [Mass/Vol] 4.3 g/dL 3.4 - 5.0 -Medical [employer] [facility] Work Phone: ALP [Catalytic activity/Vol] 73 U/L 33 - 136 [facility] [[email or web address] [employer] [facility] Work Phone: ALT With P-5'-P [Catalytic activity/Vol] 15 U/L 10 - 52 -[employer] [facility] Work Phone: Comment on above: Patients treated wit h Sulfasalazine may generate falsely decreased results for ALT. Anion gap [Moles/Vol] 9 mmol/L below low threshold 10 - 20 -[facility] [employer] [facility] Work Phone: AST With P-5'-P [Catalytic activity/Vol] 17 U/L 9 - 39 -[facility] [employer] [facility] Work Phone: Bilirubin [Mass/Vol] 0.8 mg/dL 0.0 - 1.2 - [employer] [facility] Work Phone: Calcium [Mass/Vol] 9.6 mg/dL 8.6 - 10.3 -[facility] ical [employer] [facility] Work Phone: Chloride [Moles/Vol] 101 mmol/L 98 - 107 -[employer] [facility] Work Phone: CO2 [Moles/Vol] 32 mmol/L 21 - 32 -Medica l [employer] [facility] Work Phone: Creatinine [Mass/Vol] 1.03 mg/dL See Below [employer] [facility] Work Phone: Comment on above: Reference Range: 0.5 0 - 1.30 Glucose [Mass/Vol] 134 mg/dL above high threshold 74 - 99 [employer] [facility] Work Phone: Potassium [Moles/Vol] 3.9 mmol/L 3.5 - 5.3 [employer] [facility] Work Phone: Protein [Mass/Vol] 7.2 g/dL 6.4 - 8.2 [employer] [facility] Work Phone: Sodium [Moles/Vol] 138 mmol/L 136 - 145 [employer] [facility] Work Phone: Urea nitrogen [Mass/Vol] 23 mg/dL 6 - 23 [employer] [facility] Work Phone: Lipid Panelon 12-19-2020 Cholesterol [Mass/Vol] 134 mg/dL 0 - 199 [employer] [facility] Work Phone: Comment on above: . AGE DESIRABLE BORD PJ HIGH HIGH 0-19 Y 0 - 169 170 - 199 >/= 200 20-24 Y 0 - 189 190 - 224 >/= 225 >24 Y 0 - 199 200 - 239 >/= 240 All ranges are based on fasting samples. Specific therapeutic targets will vary based on patient-specific cardiac risk.. Pediatric guidelines reference:Pediatrics 2011, 128(S5). Adult guidelines reference: NCEP ATPIII Guidelines, MARISA 2001, 258:2486-97. Venipuncture immediately after or during the administration of Metamizole may lead to falsely low results. Testing should be performed immediately prior to Metamizole dosing. Cholesterol in HDL [Mass/Vol] 46.0 mg/dL [employer] [facility] Work Phone: Comment on above: . AGE VERY LOW LOW N ORMAL HIGH 0-19 Y < 35 < 40 40-45 ---- 20- 24 Y ---- < 40 >45 ---- >24 Y ---- < 40 40-60 >60. Cholesterol in LDL [Mass/Vol] 62 mg/dL 0 - 99 [facility] Work Phone: Comment on above: . NEAR BORD AGE HUGO RABLE OPTIMAL HIGH HIGH VERY HIGH 0-19 Y 0 - 109 --- 110-129 >/= 130 ---- 20-24 Y 0 - 119 --- 120-159 >/= 160 ---- >24 Y 0 - 99 100-129 130-159 160-189 >/=190. Cholesterol.total/Cho lesterol in HDL [Mass ratio] 2.9 {ratio} [facility] Work Phone: Comment on above: REF VALUESDESIRABLE < 3.4HIGH RISK > 5.0 Triglyceride [Mass/Vol] 129 mg/dL 0 - 149 [facility] Work Phone: Comment on above: . AGE DESIRABLE BORD PJ HIGH HIGH VERY HIGH 0 D-90 D 19 - 174 ---- ---- ----91 D- 9 Y 0 - 74 75 - 99 >/= 100 ---- 10-19 Y 0 - 89 90 - 129 >/= 130 ---- 20-24 Y 0 - 114 115 - 149 >/= 150 ---- >24 Y 0 - 149 150 - 199 200- 499 >/= 500. Venipuncture immediately after or during the administration of Metamizole may lead to falsely low results. Testing should be performed immediately prior to Metamizole dosing. Lipid Panel 26 mg/dL 0 - 40 [employer] [facility] Work Phone: No Panel Informationon 12-19 >60 >60 [facility] Work Phone: Comment on above: CALCULATIONS OF ROD MATED GFR ARE PERFORMED USING THE MDRD STUDY EQUATION FOR THE IDMS-TRACEABLE CREATININE METHODS. CLIN CHEM 2007;53:766-72 TSH - Thyroid Stimulating Ho monse, Serumon 12-19-2020 TSH Qn 1.80 m[IU]/L See Below [facility] Work Phone: Comment on above: Reference Range: 0.4 4 - 3.98 TSH testing is performed using different testing methodology at [facility] than at [facility]. Direct result comparisons should only be made within the same method. Hep A,B, C Panelon 9 Hep A IgM Negative Normal Negative [facility] Comment on above: Performed By: #### 1 [id number] #### [facility] [address] [place] [address] Hep B Core IgM Negative Normal Negative [facility] Comment on above: Performed By: #### 1 [id number] #### [facility] [address] [place] [address] Hep Bs Ag Negative Normal Negative [facility] Comment on above: Performed By: #### 1 [id number] #### [facility] [facility] [place] [address] Hep C Ab <0.1 Normal 0.0-0.9 [facility] Comment on above: Result Comment: Nega tive: < 0.8 Indeterminate: 0.8 - 0.9 Positive: > 0.9 The CDC recommends that a positive HCV antibody result be followed up with a HCV Nucleic Acid Amplification test (249776). Performed At: [facility] [id number] Lasha Parmar PhD Ph:[phone] Performed By: #### 1 [id number] #### [facility] [address] [address] Auto Diffon 12-23-2018 Basophils (Bld) [#/Vol] 0.0 E3/mcL Normal 0.0-0.2 [facility] Comment on above: Order Comment: Order added by Discern Expert. Performed By: #### 1 [id number] #### [facility] [address] [place] [address] Basophils/100 WBC (Bld) 0.9 % Normal 0.0-2.0 [facility] Comment on above: Order Comment: Order added by Discern Expert. Performed By: #### 1 [id number] #### [facility] [address] [place] [address] Eos Absolute 0.0 E3/mcL Normal 0.0-0.7 [facility] Comment on above: Order Comment: Order added by Discern Expert. Performed By: #### 1 [id number] #### [facility] [place] [address] Eosinophils/100 WBC (Bld) 0.3 % Normal 0.0-11.0 [facility] Comment on above: Order Comment: Order added by Discern Expert. Performed By: #### 1 [id number] #### [facility] [place] [address] Lymphocytes (Bld) [#/Vol] 1.0 E3/mcL Low 1.2-3.4 [facility] Comment on above: Order Comment: Order added by Discern Expert. Performed By: #### 1 [id number] #### [facility] [place] [address] Lymphocytes/100 WBC (Bld) 22.0 % Normal 20.0-55.0 [facility] Comment on above: Order Comment: Order added by Discern Expert. Performed By: #### 1 [id number] #### [facility] [place] [address] [place] Absolute 0.4 E3/mcL Normal 0.0-0.7 [facility] Comment on above: Order Comment: Order added by Discern Expert. Performed By: #### 1 [id number] #### [facility] [place] [address] Monocytes/100 WBC (Bld) 9.8 % Normal 0.0-10.0 [facility] Comment on above: Order Comment: Order added by Discern Expert. Performed By: #### 1 [id number] #### [facility] [address] Neutro Absolute 3.0 E3/mcL Normal 1.4-6.5 [facility] Comment on above: Order Comment: Order added by Discern Expert. Performed By: #### 1 [id number] #### [facility] [place] [address] Neutro Auto 67.0 % Normal 37.0-75.0 [facility] Comment on above: Order Comment: Order added by Discern Expert. Performed By: #### 1 [id number] #### [facility] [address] [address] CBC w/ Auto Diffon Erythrocyte distribution width (RBC) [Ratio] 14.7 % High 11.5-14.5 [facility] Comment on above: Performed By: #### 1 [id number] #### [facility] [place] [address] Hematocrit (Bld) [Volume fraction] 42.1 % Normal 42.0-52.0 [facility] Comment on above: Performed By: #### 1 [id number] #### [facility] [address] [place] [address] Hemoglobin (Bld) [Mass/Vol] 14.1 g/dL Normal 13.5-18.0 [facility] Comment on above: Performed By: #### 1 [id number] #### [facility] [employer] [address] [place] [address] MCH (RBC) [Entitic mass] 29.4 pg Normal 27.0-31.0 [facility] Comment on above: Performed By: #### 1 [id number] #### [facility] [employer] [address] [place] [address] MCHC (RBC) [Mass/Vol] 33.5 g/dL Normal 33.0-37.0 [facility] Comment on above: Performed By: #### 1 [id number] #### [facility] [employer] [address] [place] [address] MCV (RBC) [Entitic vol] 87.8 fL Normal 78.0-100.0 [facility] Comment on above: Performed By: #### 1 [id number] #### [facility] [employer] [address] [place] [address] Platelet mean volume (Bld) [Entitic vol] 7.6 fL Normal 7.4-11.0 [facility] Comment on above: Performed By: #### 1 [id number] #### [facility] [employer] [address] [place] [address] Platelets (Bld) [#/Vol] 247 E3/mcL Normal 130-400 [facility] Comment on above: Performed By: #### 1 [id number] #### [facility] [address] [address] RBC (Bld) [#/Vol] 4.80 E6/mcL Normal 3.90-6.10 [facility] Comment on above: Performed By: #### 1 [id number] #### [facility] [place] [address] [place] [address] WBC (Bld) [#/Vol] 4.5 E3/mcL Normal 3.6-11.0 [facility] Comment on above: Performed By: #### 1 [id number] #### [facility] [place] [address] CMPon 12-23-2018 Albumin [Mass/Vol] 3.9 g/dL Normal 3.4-5.0 [facility] Comment on above: Performed By: #### 1 [id number] #### [facility] [place] [address] [address] Albumin/Globulin [Mass ratio] 1.3 {ratio} Normal 1.1-1.9 [facility] Comment on above: Performed By: #### 1 [id number] #### [facility] [place] [address] Alk Phos 73 Int._Unit/L Normal 33-136 [facility] Comment on above: Performed By: #### 1 [id number] #### [facility] [place] [address] [place] [address] ALT [Catalytic activity/Vol] 147 Int._Unit/L High 10-52 [facility] Comment on above: Performed By: #### 1 [id number] #### [facility] [place] [address] Anion gap [Moles/Vol] 11 mmol/L Normal 10-20 [facility] Comment on above: Performed By: #### 1 [id number] #### [facility] [place] [address] [place] [address] AST [Catalytic activity/Vol] 110 Int._Unit/L High 9-39 [facility] Comment on above: Performed By: #### 1 [id number] #### [facility] [place] [address] Bili Total 0.70 mg/dL Normal 0.00-1.20 [facility] Comment on above: Performed By: #### 1 [id number] #### [facility] [employer] [address] [place] [address] Calcium [Mass/Vol] 8.8 mg/dL Normal 8.6-10.3 [facility] Comment on above: Performed By: #### 1 [id number] #### [facility] [employer] [address] [place] [address] Chloride [Moles/Vol] 98 mmol/L Normal 98-107 [facility] Comment on above: Performed By: #### 1 [id number] #### [facility] [employer] [address] [place] [address] CO2 [Moles/Vol] 30.0 mmol/L Normal 21.0-32.0 [facility] Comment on above: Performed By: #### 1 [id number] #### [facility] [employer] [address] [place] [address] Creatinine [Mass/Vol] 1.0 mg/dL Normal 0.5-1.3 [facility] Comment on above: Performed By: #### 1 [id number] #### [facility] [employer] [address] [place] [address] Globulin (S) [Mass/Vol] 3.0 g/dL Normal 2.0-4.0 [facility] Comment on above: Performed By: #### 1 [id number] #### [facility] [employer] [address] [place] [address] Glucose [Mass/Vol] 285 mg/dL High 70-99 [facility] Comment on above: Performed By: #### 1 [id number] #### [facility] [employer] [address] [place] [address] Potassium [Moles/Vol] 3.8 mmol/L Normal 3.5-5.3 [facility] Comment on above: Performed By: #### 1 [id number] #### [facility] [employer] [address] [place] [address] Protein [Mass/Vol] 7.0 g/dL Normal 6.4-8.2 [facility] Comment on above: Performed By: #### 1 [id number] #### [facility] [employer] [address] [place] [address] Sodium [Moles/Vol] 135 mmol/L Low 136-145 [facility] Comment on above: Performed By: #### 1 [id number] #### [facility] [employer] [address] [place] [address] Urea nitrogen [Mass/Vol] 23 mg/dL Normal 6-23 [facility] Comment on above: Performed By: #### 1 [id number] #### [facility] [employer] [address] [place] [address] 48327 Urea nitrogen/Creatinine [Mass ratio] 23.0 ratio Normal 5.4-30.0 [facility] Comment on above: Performed By: #### 1 [id number] #### [facility] [employer] [address] [place] [address] 73824 Sed Rate Automatedon 019 Sed Rate Automated 40 mm/hr Normal [facility] Comment on above: Result Comment: AGE- SPECIFIC REFERENCE RANGES FOR SEDIMENTATION RATE AUTOMATED REFERENCE RANGE - MM/HR AGE MEN WOMEN 0-2 0-2 - PUBERTY 3-13 3-13 PUBERTY - 50 YRS 0-15 0-20 > 50 YRS 0-20 0-30 Performed By: #### 1 [id number] #### [facility] [employer] [address] [place] [address] eGFRon 12-23-2018 GFR/1.73 sq M predicted among non-blacks MDRD (S/P/Bld) [Vol rate/Area] mL/min/{1.73_m2} Normal [facility] Comment on above: Order Comment: Order added by Discern Expert. Performed By: #### 1 [id number] #### [facility] [employer] [address] [place] [address] 448[address] CMPon 12-09-2018 Albumin [Mass/Vol] 4.0 g/dL Normal 3.4-5.0 [facility] Comment on above: Performed By: #### 2 145312 #### [facility] [employer] [address] [place] [address] 36671 Albumin/Globulin [Mass ratio] 1.3 {ratio} Normal 1.1-1.9 [facility] Comment on above: Performed By: #### 2 497072 #### [facility] [employer] [address] [place] [address] 50040 Alk Phos 75 Int._Unit/L Normal 33-136 [facility] Comment on above: Performed By: #### 2 090227 #### [facility] [employer] [address] [place] [address] 91877 ALT [Catalytic activity/Vol] 15 Int._Unit/L Normal 10-52 [facility] Comment on above: Performed By: #### 2 [id number] #### [facility] [employer] [address] [place] [address] 61957 Anion gap [Moles/Vol] 13 mmol/L Normal 10-20 [facility] Comment on above: Performed By: #### 2 110595 #### [facility] [employer] [address] [place] [address] 25344 AST [Catalytic activity/Vol] 18 Int._Unit/L Normal 9-39 [facility] Comment on above: Performed By: #### 2 602725 #### [facility] [employer] [address] [place] [address] 46310 Bili Total 0.53 mg/dL Normal 0.00-1.20 [facility] Comment on above: Performed By: #### 2 492856 #### [facility] [employer] [address] [place] [address] 01727 Calcium [Mass/Vol] 9.4 mg/dL Normal 8.6-10.3 [facility] Comment on above: Performed By: #### 2 179138 #### [facility] [employer] [address] [place] [address] 25536 Chloride [Moles/Vol] 102 mmol/L Normal 98-107 [facility] Comment on above: Performed By: #### 2 637782 #### [facility] [employer] [address] [place] [address] 57463 CO2 [Moles/Vol] 29.0 mmol/L Normal 21.0-32.0 [facility] Comment on above: Performed By: #### 2 600924 #### [facility] [employer] [address] [place] [address] 96594 Creatinine [Mass/Vol] 1.0 mg/dL Normal 0.5-1.3 [facility] Comment on above: Performed By: #### 2 126197 #### [facility] [employer] [address] [place] [address] 00319 Globulin (S) [Mass/Vol] 3.0 g/dL Normal 2.0-4.0 [facility] Comment on above: Performed By: #### 2 403186 #### [facility] [employer] [address] [place] [address] 93748 Glucose [Mass/Vol] 167 mg/dL High 70-99 [facility] Comment on above: Performed By: #### 2 555274 #### [facility] [employer] [address] [place] [address] 99839 Potassium [Moles/Vol] 3.7 mmol/L Normal 3.5-5.3 [facility] Comment on above: Performed By: #### 2 135648 #### [facility] [employer] [address] [place] [address] 83139 Protein [Mass/Vol] 7.0 g/dL Normal 6.4-8.2 [facility] Comment on above: Performed By: #### 2 819378 #### [facility] [employer] [address] [place] [address] 97122 Sodium [Moles/Vol] 140 mmol/L Normal 136-145 [facility] Comment on above: Performed By: #### 2 420967 #### [facility] [employer] [address] [place] [address] 39952 Urea nitrogen [Mass/Vol] 24 mg/dL High 6-23 [facility] Comment on above: Performed By: #### 2 945383 #### [facility] [employer] [address] [place] [address] 36822 Urea nitrogen/Creatinine [Mass ratio] 24.0 ratio Normal 5.4-30.0 [facility] Comment on above: Performed By: #### 2 765398 #### [facility] [employer] [address] [place] [address] 93534 [id number] 12-09-2018 HbA1c (Bld) [Mass fraction] 7.3 % High 4.0-6.3 [facility] Comment on above: Performed By: #### 1 [id number] #### [facility] [employer] [address] [place] [address] 31636 Lipid Profileon 06-13-2019 Cholesterol [Mass/Vol] 163 mg/dL Normal 0-199 [facility] Comment on above: Result Comment: TOTA L CHOLEESTEROL: <200 NORMAL 200 - 239 BORDERLINE HIGH >240 HIGH Performed By: #### 3 [id number] #### [facility] [employer] [address] [place] [address] 43854 Cholesterol in HDL [Mass/Vol] 46 mg/dL Normal 40-60 [facility] Comment on above: Performed By: #### 3 0391412 #### [facility] [employer] [facility] [place] [address] Cholesterol in LDL [Mass/Vol] 90 mg/dL Normal 0-130 [facility] Comment on above: Result Comment: <100 OPTIMAL 100-129 NEAR / ABOVE OPTIMAL 130-159 BORDERLINE HIGH 160-189 HIGH >190 VERY HIGH CALC LDL NOT VALID WHEN TRIGLYCERIDE IS >400 MG/DL Performed By: #### 3 [id number] #### [facility] [employer] [address] [place] [address] 61403 Cholesterol in VLDL [Mass/Vol] 27 mg/dL Normal 0-40 [facility] Comment on above: Performed By: #### 3 [id number] #### [facility] [employer] [address] [place] [address] 05054 Triglyceride [Mass/Vol] 137 mg/dL Normal 0-149 [facility] Comment on above: Result Comment: AGE DESIRABLE BORDERLINE HIGH 91 D - 9 Y 0 - 74 75 - 99 > 100 10 - 19 Y 0 - 89 90 - 129 > 130 20 -24 Y 0 - 114 115 - 149 > 150 > 25 0 - 149 150 - 199 200 - 499 Performed By: #### 3 [id number] #### [facility] [employer] [address] [place] [address] 93247 TSHon 12-09-2018 TSH Qn 1.92 mcIU/mL Normal 0.30-5.60 [facility] Comment on above: Performed By: #### 2 [id number] #### [facility] [employer] [address] [place] [address] 86151 eGFRon 12-09-2018 GFR/1.73 sq M predicted among non-blacks MDRD (S/P/Bld) [Vol rate/Area] mL/min/{1.73_m2} Normal [facility] Comment on above: Order Comment: Order added by Discern Expert. Performed By: #### 1 [id number] #### [facility] [employer] [address] [place] [address] 59562 Microalb/Creat Ratioon 06-15 Creatinine [Mass/Vol] 172.0 mg/dL Normal 20.0-300.0 [facility] Comment on above: Performed By: #### 1 [id number] #### [facility] [employer] [address] [place] [address] 67196 Creatinine [Mass/Vol] 4 ug/mg Normal 0-30 [facility] Comment on above: Performed By: #### 1 [id number] #### [facility] [employer] [address] [place] [address] 69016 Ur Microalbumin 0.7 mg/dL Normal 0.0-1.9 [facility] Comment on above: Performed By: #### 1 4656978 #### [facility] [employer] [address] [place] [address] CMPon 06-10-2018 Albumin [Mass/Vol] 4.4 g/dL Normal 3.4-5.0 [facility] Comment on above: Performed By: #### 2 254686 #### [facility] [employer] [address] [place] [address] 94134 Albumin/Globulin [Mass ratio] 1.4 {ratio} Normal 1.1-1.9 [facility] Comment on above: Performed By: #### 2 120184 #### [facility] [employer] [address] [place] [address] 14256 Alk Phos 64 Int._Unit/L Normal 33-136 [facility] Comment on above: Performed By: #### 2 111819 #### [facility] [employer] [address] [place] [address] 78434 ALT [Catalytic activity/Vol] 15 Int._Unit/L Normal 10-52 [facility] Comment on above: Performed By: #### 2 293460 #### [facility] [employer] [address] [place] [address] 68760 Anion gap [Moles/Vol] 10 mmol/L Normal 10-20 [facility] Comment on above: Performed By: #### 2 813075 #### [facility] [employer] [address] [place] [address] 64227 AST [Catalytic activity/Vol] 16 Int._Unit/L Normal 9-39 [facility] Comment on above: Performed By: #### 2 199386 #### [facility] [employer] [address] [place] [address] 06818 Bili Total 0.67 mg/dL Normal 0.00-1.20 [facility] Comment on above: Performed By: #### 2 [id number] #### [facility] [employer] [address] [place] [address] 57044 Calcium [Mass/Vol] 9.5 mg/dL Normal 8.6-10.3 [facility] Comment on above: Performed By: #### 2 468322 #### [facility] [employer] [address] [place] [address] 81074 Chloride [Moles/Vol] 100 mmol/L Normal 98-107 [facility] Comment on above: Performed By: #### 2 808432 #### [facility] [employer] [address] [place], [place] [address] CO2 [Moles/Vol] 32.0 mmol/L Normal 21.0-32.0 [facility] Comment on above: Performed By: #### 2 544349 #### [facility] [employer] [address] [place] [address] 16044 Creatinine [Mass/Vol] 1.1 mg/dL Normal 0.5-1.3 [facility] Comment on above: Performed By: #### 2 209503 #### [facility] [employer] [address] [place] [address] 71944 Globulin (S) [Mass/Vol] 3.0 g/dL Normal 2.0-4.0 [facility] Comment on above: Performed By: #### 2 329646 #### [facility] [employer] [address] [place] [address] 23944 Glucose [Mass/Vol] 147 mg/dL High 70-99 [facility] Comment on above: Performed By: #### 2 650392 #### [facility] [employer] [address] [place] [address] 18581 Potassium [Moles/Vol] 3.8 mmol/L Normal 3.5-5.3 [facility] Comment on above: Performed By: #### 2 450114 #### [facility] [employer] [facility] [place] [address] Protein [Mass/Vol] 7.5 g/dL Normal 6.4-8.2 [facility] Comment on above: Performed By: #### 2 807213 #### [facility] [employer] [address] [place] [address] 46996 Sodium [Moles/Vol] 138 mmol/L Normal 136-145 [facility] Comment on above: Performed By: #### 2 684060 #### [facility] [employer] [address] [place] [address] 35675 Urea nitrogen [Mass/Vol] 22 mg/dL Normal 6-23 [facility] Comment on above: Performed By: #### 2 583284 #### [facility] [employer] [address] [place] [address] 25598 Urea nitrogen/Creatinine [Mass ratio] 20.0 ratio Normal 5.4-30.0 [facility] Comment on above: Performed By: #### 2 694357 #### [facility] [employer] [address] [place] [address] 82255 [id number] 06-10-2018 HbA1c (Bld) [Mass fraction] 7.0 % High 4.0-6.3 [facility] Comment on above: Performed By: #### 3 [id number] #### [facility] Chemistry Manual Subsection [address] [place] [address] 67391 LDL Directon 06-10-2018 Cholesterol in LDL [Mass/Vol] 106 mg/dL Normal 0-129 [facility] Comment on above: Result Comment: LDL CHOLESTEROL: <100 OPTIMAL 100-129 NEAR / ABOVE OPTIMAL 130-159 BORDERLINE HIGH 160-189 HIGH >190 VERY HIGH CALC LDL NOT VALID WHEN TRIGLYCERIDE IS >400 MG/DL Performed By: #### 1 [id number] #### [facility] [employer] [address] [place] [address] 69412 eGFRon 06-10-2018 GFR/1.73 sq M predicted among non-blacks MDRD (S/P/Bld) [Vol rate/Area] mL/min/{1.73_m2} Normal [facility] Comment on above: Order Comment: Order added by Discern Expert. Performed By: #### 1 [id number] #### [facility] [employer] [facility] [place] [address] CBC with Diffon 08-20-2017 Basophils Auto #/vol (Bld) 0.0 K/mcL Normal 0-0.2 [facility] Comment on above: Performed By: #### C BCDIF, EDCTNI, CMET ####Unless otherwise noted, all testing performed by [phone]: [id number] Director: Saeid Platt M.D. Basophils/100 WBC Auto (Bld) 0.6 % Normal [facility] Comment on above: Performed By: #### C BCDIF, EDCTNI, CMET ####Unless otherwise noted, all testing performed by [place] [phone]: [id number] Director: Saeid Platt M.D. Eosinophils 0.2 K/mcL Normal 0-0.5 [facility] Comment on above: Performed By: #### C BCDIF, EDCTNI, CMET ####Unless otherwise noted, all testing performed by [phone]: [id number] Director: Saeid Platt M.D. Eosinophils/100 leukocytes 2.5 % Normal [facility] Comment on above: Performed By: #### C BCDIF, EDCTNI, CMET ####Unless otherwise noted, all testing performed by [address] [phone]: [id number] Director: Saeid Platt M.D. Erythrocyte distribution width Auto Ratio (RBC) 13.7 % Normal 10-14.3 [facility] Comment on above: Performed By: #### C BCDIF, EDCTNI, CMET ####Unless otherwise noted, all testing performed by [address] [phone]: [id number] Director: Saeid Platt M.D. Erythrocytes (RBC) 4.59 M/mcL Normal 4.0-5.5 [facility] Comment on above: Performed By: #### C BCDIF, EDCTNI, CMET ####Unless otherwise noted, all testing performed by [address] [phone]: [id number] Director: Saeid Platt M.D. Hematocrit (HCT) 40.9 % Normal 37.9-49.2 [facility] Comment on above: Performed By: #### C BCDIF, EDCTNI, CMET ####Unless otherwise noted, all testing performed by [address] [phone]: [id number] Director: Saeid Platt M.D. Hemoglobin mass conc (Bld) 13.5 g/dL Normal 12.9-16.9 [facility] Comment on above: Performed By: #### C BCDIF, EDCTNI, CMET ####Unless otherwise noted, all testing performed by [address] [phone]: [id number] Director: Saeid Platt M.D. Lymphocytes 0.9 K/mcL Normal 0.9-3.6 [facility] Comment on above: Performed By: #### C BCDIF, EDCTNI, CMET ####Unless otherwise noted, all testing performed by [address] [phone]: [id number] Director: Saeid Platt M.D. Lymphocytes/100 leukocytes 12.5 % Normal [facility] Comment on above: Performed By: #### C BCDIF, EDCTNI, CMET ####Unless otherwise noted, all testing performed by [address] [phone]: [id number] Director: Saeid Platt M.D. MCH 29.5 pg Normal 27.7-34.6 [facility] Comment on above: Performed By: #### C BCDIF, EDCTNI, CMET ####Unless otherwise noted, all testing performed by [address] [phone]: [id number] Director: Saeid Platt M.D. MCHC mass conc (RBC) 33.1 g/dL Normal 32.9-35.5 [facility] Comment on above: Performed By: #### C BCDIF, EDCTNI, CMET ####Unless otherwise noted, all testing performed by [address] [phone]: [id number] Director: Saeid Platt M.D. MCV 89.1 fL Normal 82.8-99.3 [facility] Comment on above: Performed By: #### C BCDIF, EDCTNI, CMET ####Unless otherwise noted, all testing performed by [address] [phone]: [id number] Director: Saeid Platt M.D. Monocytes 0.4 K/mcL Normal 0.2-0.6 [facility] Comment on above: Performed By: #### C BCDIF, EDCTNI, CMET ####Unless otherwise noted, all testing performed by [address]8509CLIA: [id number] Director: Saeid Platt M.D. Monocytes/100 leukocytes 5.2 % Normal [facility] Comment on above: Performed By: #### C BCDIF, EDCTNI, CMET ####Unless otherwise noted, all testing performed by [address]8509CLIA: [id number] Director: Saeid Platt M.D. Neutrophils 5.6 K/mcL Normal 1.4-6.8 [facility] Comment on above: Performed By: #### C BCDIF, EDCTNI, CMET ####Unless otherwise noted, all testing performed by [address]8509CLIA: [id number] Director: Saeid Platt M.D. Platelet mean volume (PMV) 7.7 fL Normal 6.6-10.8 [facility] Comment on above: Performed By: #### C BCDIF, EDCTNI, CMET ####Unless otherwise noted, all testing performed by [place] [phone]: [id number] Director: Saeid Platt M.D. Platelets 286 K/mcL Normal 139-354 [facility] Comment on above: Performed By: #### C BCDIF, EDCTNI, CMET ####Unless otherwise noted, all testing performed by [address] [phone]: [id number] Director: Saeid Platt M.D. Segmented Neut % 79.2 % Normal [facility] Comment on above: Performed By: #### C BCDIF, EDCTNI, CMET ####Unless otherwise noted, all testing performed by [address] [phone]: [id number] Director: Saeid Platt M.D. WBC (Leukocytes) 7.1 K/mcL Normal 3.6-10.4 [facility] Comment on above: Performed By: #### C BCDIF, EDCTNI, CMET ####Unless otherwise noted, all testing performed by [address] [phone]: [id number] Director: Saeid Platt M.D. CT BRAIN W/O CONTRASTon 07-31 CT BRAIN W/O CONTRAST Final ReportAccession No: [id number] Performed: Aug 20 2017 5:58AMExamination: CT BRAIN W/O CONTRASTHISTORY: Dizziness.CT HEAD WITHOUT CONTRAST 08/20/2017COMPARISON STUDY: None.TECHNIQUE: 3 mm sections were obtained through the head without contrast.Coronal and sagittal reconstructed images were obtained. Dose reductiontechniques were achieved by using automated exposure control and/oradjustmentof mA and/or kV according to patient size and/or use of iterativereconstruction technique.FINDINGS: Mastoid air cells, middle ear cavities and visualized paranasalsinuses are clear. No acute osseous abnormality is noted. No acuteintraorbitalabnormali ty is identified. The upper parapharyngeal fat planes are grosslyintact.Intracranial ly, there is no midline shift, hemorrhage, or dominant masslesion.The ventricles and cisternal spaces are within normal limits. Thegray-whitematter differentiation is grossly intact. Mild bifrontal predominantatrophicchanges are noted.IMPRESSION:No acute intracranial process. Negative for intracranial hemorrhage.Interpreting Physician: STERLING SANTIAGO M.D.Trans: nhatte : cc: Normal [facility] Comprehensive Metabolic Pane danyell 08-20-2017 Alanine aminotransferase (ALT) 21 U/L Normal 14-65 [facility] Comment on above: Result Comment: This test result might be falsely depressed or falsely elevated onsamples drawn from patients taking Sulfasalazine and Sulfapyridine.Venipuncture should occur prior to taking either of these drugs. Performed By: #### C BCDIF, EDCTNI, CMET ####Unless otherwise noted, all testing performed by [place] [phone]: [id number] Director: Saeid Platt M.D. Albumin 3.6 g/dL Normal 3.2-5.2 [facility] Comment on above: Performed By: #### C BCDIF, EDCTNI, CMET ####Unless otherwise noted, all testing performed by [address] [phone]: [id number] Director: Saeid Platt M.D. Alkaline phosphatase (ALP) 68 U/L Normal 40-150 [facility] Comment on above: Performed By: #### C BCDIF, OSCARTNI, CMET ####Unless otherwise noted, all testing performed by [address] [phone]: [id number] Director: Saeid Platt M.D. Aspartate aminotransferase (AST) 14 U/L Normal 0-45 [facility] Comment on above: Result Comment: This test result might be falsely depressed or falsely elevated onsamples drawn from patients taking Sulfasalazine and Sulfapyridine.Venipuncture should occur prior to taking either of these drugs. Performed By: #### C BCDIF, EDCTNI, CMET ####Unless otherwise noted, all testing performed by [place] [phone]: [id number] Director: Saeid Platt M.D. Bilirubin (total) 0.6 mg/dL Normal 0.3-1.2 [facility] Comment on above: Performed By: #### C BCDIF, EDCTNI, CMET ####Unless otherwise noted, all testing performed by [address]8509CLIA: [id number] Director: Saeid Platt M.D. Calcium 8.6 mg/dL Normal 8.4-10.2 [facility] Comment on above: Performed By: #### C BCDIF, EDCTNI, CMET ####Unless otherwise noted, all testing performed by [address] [phone]: [id number] Director: Saeid Platt M.D. Chloride 102 mmol/L Normal 98-108 [facility] Comment on above: Performed By: #### C BCDIF, EDCTNI, CMET ####Unless otherwise noted, all testing performed by [address] [phone]: [id number] Director: Saeid Lc, M.D. CO2 28 mmol/L Normal 21-32 [facility] Comment on above: Performed By: #### C BCDIF, EDCTNI, CMET ####Unless otherwise noted, all testing performed by [address] [phone]: [id number] Director: Saeid Platt M.D. Creatinine 1.03 mg/dL Normal 0.80-1.30 [facility] Comment on above: Performed By: #### C BCDIF, EDCTNI, CMET ####Unless otherwise noted, all testing performed by [address] [phone]: [id number] Director: Saeid Platt M.D. eGFR (black) mL/min/{1.73_m2} Normal [facility] Comment on above: Result Comment: Afri can [place] GFR Calc Performed By: #### C BCDIF, EDCTNI, CMET ####Unless otherwise noted, all testing performed by [address] [phone]: [id number] Director: Saeid Platt M.D. eGFR (non-black) mL/min/{1.73_m2} Normal [facility] Comment on above: Result Comment: Non- GFR CalceGFR is an estimated Glomerular Filtration Rate based on the valueof the patient's serum creatinine. In outpatients, eGFR should be usedas a helpful tool in screening for CKD. In inpatients or patients withacute renal failure, eGFR represents the GFR at the moment of the drawand should be used with caution. Performed By: #### C BCDIF, EDCTNI, CMET ####Unless otherwise noted, all testing performed by [address] [phone]: [id number] Director: Saeid Platt M.D. Glucose mass conc 195 mg/dL High 70-99 [facility] Comment on above: Result Comment: This test result might be falsely depressed or falsely elevated onsamples drawn from patients taking Sulfasalazine and Sulfapyridine.Venipuncture should occur prior to taking either of these drugs. Performed By: #### C BCDIF, EDCTNI, CMET ####Unless otherwise noted, all testing performed by [place] [id number]: [id number] Director: Saeid Platt M.D. Potassium molar conc 3.5 mmol/L Normal 3.5-5.1 [facility] Comment on above: Performed By: #### C BCDIF, EDCTNI, CMET ####Unless otherwise noted, all testing performed by [place] [id number]: [id number] Director: Saeid Platt M.D. Protein 7.2 g/dL Normal 6.0-8.0 [facility] Comment on above: Performed By: #### C BCDIF, EDCTNI, CMET ####Unless otherwise noted, all testing performed by [address] [id number]: [id number] Director: Saeid Platt M.D. Sodium 137 mmol/L Normal 135-145 [facility] Comment on above: Performed By: #### C BCDIF, EDCTNI, CMET ####Unless otherwise noted, all testing performed by [place] [id number]: [id number] Director: Saeid Platt M.D. Urea nitrogen 19 mg/dL Normal 8-25 [facility] Comment on above: Performed By: #### C BCDIF, EDCTNI, CMET ####Unless otherwise noted, all testing performed by [address] [id number]: [id number] Director: Saeid Platt M.D. ED Cardiac Troponin-Ion 07-31 Troponin I.cardiac mass conc ng/mL Normal < 45 [facility] Comment on above: Result Comment: Elev ation of troponin indicates some degree of myocardial necrosis butunless there is a significant rise and/or fall (if elevated) identified,it unlikely that an acute event has taken placeSamples from patients routinely receiving high dose biotin therapy(100-300 mg/day) may show falsely decreased results. Please correlateclinically. Performed By: #### C BCDIF, EDCTNI, CMET ####Unless otherwise noted, all testing performed by [address] [id number]: [id number] Director: Saeid Platt M.D. Vital Signs Date Time Vital Sign Value Performing Clinician Johana zavala 01-09-2025 16:34-0400 Body temperature 98.6 [degF] Dr. Chaitanya Roe MD Work Phone: [facility] 01-09-2025 16:34-0400 Diastolic blood pressure 56 mm[Hg] Dr. Chaitanya Roe MD Work Phone: [facility] 01-09-2025 16:34-0400 Heart rate 73 /min Dr. Chaitanya Roe MD Work Phone: [facility] 01-09-2025 16:34-0400 Respiratory rate 18 /min Dr. Chaitanya Roe MD Work Phone: [facility] 01-09-2025 16:34-0400 SaO2% (BldA) [Mass fraction] 98 % Dr. Chaitanya Roe MD Work Phone: [facility] 01-09-2025 16:34-0400 Systolic blood pressure 96 mm[Hg] Dr. Chaitanya Roe MD Work Phone: [facility] 01-09-2025 13:13-0400 Body height 170.[address] Chaitanya Roe MD Work Phone: [facility] 01-09-2025 13:13-0400 Body mass index (BMI) [Ratio] 25 kg/m2 Dr. Chaitanya Roe MD Work Phone: [facility] 01-09-2025 13:13-0400 Body weight 72.[address] Chaitanya Roe MD Work Phone: [facility] 01-09-2025 08:38-0400 Body height 160 cm Dayami Puri MD Work Phone: [facility] 01-09-2025 08:38-0400 Body mass index (BMI) [Ratio] 28.41 kg/m2 Dayami Puri MD Work Phone: [facility] 01-09-2025 08:38-0400 Body temperature 97.9 [degF] Dayami Puri MD Work Phone: [facility] 01-09-2025 08:38-0400 Body weight 72.76 kg Dayami Puri MD Work Phone: [facility] 01-09-2025 08:38-0400 Diastolic blood pressure 66 mm[Hg] Dayami Puri MD Work Phone: [facility] 01-09-2025 08:38-0400 Heart rate 116 /min Dayami Puri MD Work Phone: [facility] 01-09-2025 08:38-0400 SaO2% (BldA) [Mass fraction] 96 % Dayami Puri MD Work Phone: [facility] 01-09-2025 08:38-0400 Systolic blood pressure 110 mm[Hg] Dayami Puri MD Work Phone: [facility] 12-15-2024 11:30-0400 Body temperature 98.71 [degF] Treatment Wstr Work Phone: [facility] 12-15-2024 11:30-0400 Diastolic blood pressure 61 mm[Hg] Treatment [facility]str Work Phone: [facility] 12-15-2024 11:30-0400 Heart rate 73 /min Treatment [facility]str Work Phone: [facility] 12-15-2024 11:30-0400 SaO2% (BldA) [Mass fraction] 94 % Treatment [facility]str Work Phone: [facility] 12-15-2024 11:30-0400 Systolic blood pressure 98 mm[Hg] Treatment Wstr Work Phone: [facility] 12-07-2024 10:00-0400 Body temperature 97.2 [degF] Lab/Port [facility]str Work Phone: [facility] 12-07-2024 10:00-0400 Diastolic blood pressure 69 mm[Hg] Lab[facility]Port [facility]str Work Phone: [facility] 12-07-2024 10:00-0400 Heart rate 79 /min Lab/Port [facility]str Work Phone: [facility] 12-07-2024 10:00-0400 Systolic blood pressure 116 mm[Hg] Lab[facility]Port [facility]str Work Phone: [facility] 12-05-2024 07:00-0400 Body mass index (BMI) [Ratio] 31.27 kg/m2 Treatment Wstr Work Phone: [facility] 12-05-2024 07:00-0400 Body temperature 97.7 [degF] Treatment Wstr Work Phone: [facility] 12-05-2024 07:00-0400 Body weight 81.87 kg Treatment Wstr Work Phone: [facility] 12-05-2024 07:00-0400 Diastolic blood pressure 68 mm[Hg] Treatment Wstr Work Phone: [facility] 12-05-2024 07:00-0400 Heart rate 78 /min Treatment Wstr Work Phone: [facility] 12-05-2024 07:00-0400 Systolic blood pressure 117 mm[Hg] Treatment Wstr Work Phone: [facility] 11-30-2024 10:00-0400 Diastolic blood pressure 63 mm[Hg] Treatment Wstr Work Phone: [facility] 11-30-2024 10:00-0400 Heart rate 91 /min Treatment Wstr Work Phone: [facility] 11-30-2024 10:00-0400 Respiratory rate 20 /min Treatment Wstr Work Phone: [facility] 11-30-2024 10:00-0400 SaO2% (BldA) [Mass fraction] 89 % Treatment Wstr Work Phone: [facility] 11-30-2024 10:00-0400 Systolic blood pressure 104 mm[Hg] Treatment Wstr Work Phone: [facility] 11-24-2024 11:40-0400 Body temperature 97.2 [degF] Dr. Chaitanya Roe MD Work Phone: [facility] 11-24-2024 11:40-0400 Diastolic blood pressure 66 mm[Hg] Dr. Chaitanya Roe MD Work Phone: [facility] 11-24-2024 11:40-0400 Heart rate 84 /min Dr. Chaitanya Roe MD Work Phone: [facility] 11-24-2024 11:40-0400 Respiratory rate 16 /min Dr. Chaitanya Roe MD Work Phone: [facility] 11-24-2024 11:40-0400 Systolic blood pressure 121 mm[Hg] Dr. Chaitanya Roe MD Work Phone: [facility] 11-24-2024 10:42-0400 SaO2% (BldA) [Mass fraction] 92 % Dr. Chaitanya Roe MD Work Phone: [facility] 11-24-2024 08:01-0400 Body height 170.[address] Chaitanya Roe MD Work Phone: [facility] 11-24-2024 08:01-0400 Body mass index (BMI) [Ratio] 28.6 kg/m2 Dr. Chaitanya Roe MD Work Phone: [facility] 11-24-2024 08:01-0400 Body weight [address] Chaitanya Roe MD Work Phone: [facility] 11-23-2024 10:12-0400 Body mass index (BMI) [Ratio] 31.71 kg/m2 Treatment Wstr Work Phone: [facility] 11-23-2024 10:12-0400 Body temperature 98.01 [degF] Treatment Wstr Work Phone: [facility] 11-23-2024 10:12-0400 Body weight 83.01 kg Treatment Wstr Work Phone: [facility] 11-23-2024 10:12-0400 Diastolic blood pressure 69 mm[Hg] Treatment Wstr Work Phone: [facility] 11-23-2024 10:12-0400 Heart rate 79 /min Treatment Wstr Work Phone: [facility] 11-23-2024 10:12-0400 SaO2% (BldA) [Mass fraction] 94 % Treatment Wstr Work Phone: [facility] 11-23-2024 10:12-0400 Systolic blood pressure 122 mm[Hg] Treatment Wstr Work Phone: [facility] 11-09-2024 09:26-0400 Body mass index (BMI) [Ratio] 32.57 kg/m2 Aarti Bar DO Work Phone: [facility] 11-09-2024 09:26-0400 Body temperature 98.1 [degF] Aarti Salasi DO Work Phone: [facility] 11-09-2024 09:26-0400 Body weight 85.28 kg Aarti Masci DO Work Phone: [facility] 11-09-2024 09:26-0400 Diastolic blood pressure 68 mm[Hg] Aarti Masci DO Work Phone: [facility] 11-09-2024 09:26-0400 Heart rate 87 /min Aarti Masci DO Work Phone: [facility] 11-09-2024 09:26-0400 SaO2% (BldA) [Mass fraction] 95 % Aarti Salasi DO Work Phone: [facility] 11-09-2024 09:26-0400 Systolic blood pressure 114 mm[Hg] Aarti Salasi DO Work Phone: [facility] 11-09-2024 09:11-0400 Body mass index (BMI) [Ratio] 32.57 kg/m2 Lab/Port [facility]str Work Phone: [facility] 11-09-2024 09:11-0400 Body weight 85.28 kg Lab/Port [facility]str Work Phone: [facility] 10-28-2024 11:30-0400 Body temperature 97.59 [degF] Lab/Port [facility]str Work Phone: [facility] 10-28-2024 11:30-0400 Diastolic blood pressure 72 mm[Hg] Lab[facility]Port [facility]str Work Phone: [facility] 10-28-2024 11:30-0400 Heart rate 77 /min Lab/Port [facility]str Work Phone: [facility] 10-28-2024 11:30-0400 Respiratory rate 20 /min Lab/Port [facility] Work Phone: [facility] 10-28-2024 11:30-0400 SaO2% (BldA) [Mass fraction] 97 % Lab[facility]Port [facility] Work Phone: [facility] 10-28-2024 11:30-0400 Systolic blood pressure 130 mm[Hg] Lab/Port [facility]str Work Phone: [facility] 10-26-2024 09:09-0400 Body mass index (BMI) [Ratio] 33.44 kg/m2 Treatment Wstr Work Phone: [facility] 10-26-2024 09:09-0400 Body temperature 98.01 [degF] Treatment Wstr Work Phone: [facility] 10-26-2024 09:09-0400 Body weight 87.54 kg Treatment Wstr Work Phone: [facility] 10-26-2024 09:09-0400 Diastolic blood pressure 67 mm[Hg] Treatment Wstr Work Phone: [facility] 10-26-2024 09:09-0400 Heart rate 82 /min Treatment Wstr Work Phone: [facility] 10-26-2024 09:09-0400 Respiratory rate 22 /min Treatment Wstr Work Phone: [facility] 10-26-2024 09:09-0400 SaO2% (BldA) [Mass fraction] 97 % Treatment Wstr Work Phone: [facility] 10-26-2024 09:09-0400 Systolic blood pressure 144 mm[Hg] Treatment Wstr Work Phone: [facility] 10-14-2024 13:05-0400 Diastolic blood pressure 62 mm[Hg] Lab/Port [facility]str Work Phone: [facility] 10-14-2024 13:05-0400 Heart rate 90 /min Lab/Port [facility]str Work Phone: [facility] 10-14-2024 13:05-0400 SaO2% (BldA) [Mass fraction] 97 % Lab[facility]Port [facility] Work Phone: [facility] 10-14-2024 13:05-0400 Systolic blood pressure 118 mm[Hg] Lab/Port [facility]str Work Phone: [facility] 10-12-2024 10:02-0400 Body mass index (BMI) [Ratio] 33.53 kg/m2 Lab/Port [facility]str Work Phone: [facility] 10-12-2024 10:02-0400 Body temperature 97.59 [degF] Aarti Masci DO Work Phone: [facility] 10-12-2024 10:02-0400 Body weight 87.77 kg Lab/Port Wstr Work Phone: [facility] 10-12-2024 10:02-0400 Diastolic blood pressure 74 mm[Hg] Aarti Masci DO Work Phone: [facility] 10-12-2024 10:02-0400 Heart rate 68 /min Aarti Masci DO Work Phone: [facility] 10-12-2024 10:02-0400 SaO2% (BldA) [Mass fraction] 97 % Aarti Masci DO Work Phone: [facility] 10-12-2024 10:02-0400 Systolic blood pressure 135 mm[Hg] Aarti Masci DO Work Phone: [facility] 09-30-2024 12:33-0400 Body temperature 97 [degF] Lab/Port Wstr Work Phone: [facility] 09-30-2024 12:33-0400 Diastolic blood pressure 89 mm[Hg] Lab/Port [facility]str Work Phone: [facility] 09-30-2024 12:33-0400 Heart rate 79 /min Lab/Port [facility]str Work Phone: [facility] 09-30-2024 12:33-0400 SaO2% (BldA) [Mass fraction] 96 % Lab[facility] Work Phone: [facility] 09-30-2024 12:33-0400 Systolic blood pressure 140 mm[Hg] Lab/Port [facility]str Work Phone: [facility] 09-28-2024 09:56-0400 Body mass index (BMI) [Ratio] 33.96 kg/m2 Treatment Wstr Work Phone: [facility] 09-28-2024 09:56-0400 Body temperature 97.7 [degF] Treatment Wstr Work Phone: [facility] 09-28-2024 09:56-0400 Body weight 88.91 kg Treatment Wstr Work Phone: [facility] 09-28-2024 09:56-0400 Diastolic blood pressure 65 mm[Hg] Treatment Wstr Work Phone: [facility] 09-28-2024 09:56-0400 Heart rate 68 /min Treatment Wstr Work Phone: [facility] 09-28-2024 09:56-0400 SaO2% (BldA) [Mass fraction] 97 % Treatment Wstr Work Phone: [facility] 09-28-2024 09:56-0400 Systolic blood pressure 134 mm[Hg] Treatment Wstr Work Phone: [facility] 09-16-2024 11:22-0400 Body temperature 97.2 [degF] Lab/Port Wstr Work Phone: [facility] 09-16-2024 11:22-0400 Heart rate 91 /min Lab/Port [facility]str Work Phone: [facility] 09-16-2024 11:22-0400 SaO2% (BldA) [Mass fraction] 94 % Lab/Port [facility] Work Phone: [facility] 09-14-2024 09:18-0400 Body mass index (BMI) [Ratio] 34.22 kg/m2 Rhonda Owens Work Phone: [facility] 09-14-2024 09:18-0400 Body temperature 97.7 [degF] Rhonda Owens Work Phone: [facility] 09-14-2024 09:18-0400 Body weight 89.58 kg Rhonda Owens Work Phone: [facility] 09-14-2024 09:18-0400 Diastolic blood pressure 74 mm[Hg] Rhonda Owens Work Phone: [facility] 09-14-2024 09:18-0400 Heart rate 74 /min Rhonda Owens Work Phone: [facility] 09-14-2024 09:18-0400 SaO2% (BldA) [Mass fraction] 94 % Rhonda Owens Work Phone: [facility] 09-14-2024 09:18-0400 Systolic blood pressure 149 mm[Hg] Rhonda Owens Work Phone: [facility] 09-14-2024 09:06-0400 Body mass index (BMI) [Ratio] 34.22 kg/m2 Treatment Wstr Work Phone: [facility] 09-14-2024 09:06-0400 Body weight 89.58 kg Treatment Wstr Work Phone: [facility] 09-02-2024 12:18-0500 Body temperature 97.2 [degF] Lab/Port Wstr Work Phone: [facility] 09-02-2024 12:18-0500 Diastolic blood pressure 58 mm[Hg] Lab/Port [facility]str Work Phone: [facility] 09-02-2024 12:18-0500 Heart rate 80 /min Lab/Port [facility] Work Phone: [facility] 09-02-2024 12:18-0500 Respiratory rate 18 /min Lab/Port [facility]str Work Phone: [facility] 09-02-2024 12:18-0500 SaO2% (BldA) [Mass fraction] 94 % Lab[facility]Port [facility] Work Phone: [facility] 09-02-2024 12:18-0500 Systolic blood pressure 121 mm[Hg] Lab/Port [facility]str Work Phone: [facility] 08-31-2024 08:46-0500 Body mass index (BMI) [Ratio] 34.05 kg/m2 Treatment Wstr Work Phone: [facility] 08-31-2024 08:46-0500 Body temperature 97.3 [degF] Treatment Wstr Work Phone: [facility] 08-31-2024 08:46-0500 Body weight 89.13 kg Treatment Wstr Work Phone: [facility] 08-31-2024 08:46-0500 Diastolic blood pressure 69 mm[Hg] Treatment Wstr Work Phone: [facility] 08-31-2024 08:46-0500 Heart rate 70 /min Treatment Wstr Work Phone: [facility] 08-31-2024 08:46-0500 SaO2% (BldA) [Mass fraction] 94 % Treatment Wstr Work Phone: [facility] 08-31-2024 08:46-0500 Systolic blood pressure 123 mm[Hg] Treatment Wstr Work Phone: [facility] 08-19-2024 11:23-0500 Body temperature 97.11 [degF] Lab/Port Wstr Work Phone: [facility] 08-19-2024 11:23-0500 Diastolic blood pressure 69 mm[Hg] Lab/Port Wstr Work Phone: [facility] 08-19-2024 11:23-0500 Heart rate 82 /min Lab/Port Wstr Work Phone: [facility] 08-19-2024 11:23-0500 SaO2% (BldA) [Mass fraction] 96 % Lab/Port [facility]str Work Phone: [facility] 08-19-2024 11:23-0500 Systolic blood pressure 138 mm[Hg] Lab/Port [facility]str Work Phone: [facility] 08-17-2024 09:13-0500 Body mass index (BMI) [Ratio] 34.31 kg/m2 Aarti Bar DO Work Phone: [facility] 08-17-2024 09:13-0500 Body temperature 97.39 [degF] Aarti Masci DO Work Phone: [facility] 08-17-2024 09:13-0500 Body weight 89.81 kg Aarti Masci DO Work Phone: [facility] 08-17-2024 09:13-0500 Diastolic blood pressure 70 mm[Hg] Aarti Masci DO Work Phone: [facility] 08-17-2024 09:13-0500 Heart rate 68 /min Aarti Masci DO Work Phone: [facility] 08-17-2024 09:13-0500 SaO2% (BldA) [Mass fraction] 97 % Aarti Salasi DO Work Phone: [facility] 08-17-2024 09:13-0500 Systolic blood pressure 145 mm[Hg] Aarti Salasi DO Work Phone: [facility] 08-05-2024 11:30-0500 Body temperature 97.11 [degF] Lab/Port Wstr Work Phone: [facility] 08-05-2024 11:30-0500 Diastolic blood pressure 69 mm[Hg] Lab/Port [facility]str Work Phone: [facility] 08-05-2024 11:30-0500 Heart rate 61 /min Lab/Port Wstr Work Phone: [facility] 08-05-2024 11:30-0500 SaO2% (BldA) [Mass fraction] 95 % Lab/Port [facility]str Work Phone: [facility] 08-05-2024 11:30-0500 Systolic blood pressure 138 mm[Hg] Lab/Port Wstr Work Phone: [facility] 08-03-2024 08:47-0500 Body mass index (BMI) [Ratio] 34.31 kg/m2 Treatment Wstr Work Phone: [facility] 08-03-2024 08:47-0500 Body temperature 97.2 [degF] Treatment Wstr Work Phone: [facility] 08-03-2024 08:47-0500 Body weight 89.81 kg Treatment Wstr Work Phone: [facility] 08-03-2024 08:47-0500 Diastolic blood pressure 85 mm[Hg] Treatment Wstr Work Phone: [facility] 08-03-2024 08:47-0500 Heart rate 85 /min Treatment Wstr Work Phone: [facility] 08-03-2024 08:47-0500 Respiratory rate 22 /min Treatment Wstr Work Phone: [facility] 08-03-2024 08:47-0500 SaO2% (BldA) [Mass fraction] 94 % Treatment Wstr Work Phone: [facility] 08-03-2024 08:47-0500 Systolic blood pressure 109 mm[Hg] Treatment Wstr Work Phone: [facility] 07-22-2024 12:20-0500 Body temperature 97.5 [degF] Lab/Port Wstr Work Phone: [facility] 07-22-2024 12:20-0500 Diastolic blood pressure 73 mm[Hg] Lab/Port Wstr Work Phone: [facility] 07-22-2024 12:20-0500 Heart rate 80 /min Lab/Port Wstr Work Phone: [facility] 07-22-2024 12:20-0500 SaO2% (BldA) [Mass fraction] 94 % Lab/Port [facility]str Work Phone: [facility] 07-22-2024 12:20-0500 Systolic blood pressure 148 mm[Hg] Lab/Port Wstr Work Phone: [facility] 07-20-2024 09:09-0500 Body mass index (BMI) [Ratio] 34.31 kg/m2 Aarti Bar DO Work Phone: [facility] 07-20-2024 09:09-0500 Body temperature 97.11 [degF] Aarti Bar DO Work Phone: [facility] 07-20-2024 09:09-0500 Body weight 89.81 kg Aarti Masci DO Work Phone: [facility] 07-20-2024 09:09-0500 Diastolic blood pressure 77 mm[Hg] Aarti Bar DO Work Phone: [facility] 07-20-2024 09:09-0500 Heart rate 74 /min Aarti Bar DO Work Phone: [facility] 07-20-2024 09:09-0500 SaO2% (BldA) [Mass fraction] 95 % Aarti Bar DO Work Phone: [facility] 07-20-2024 09:09-0500 Systolic blood pressure 146 mm[Hg] Aarti Bar DO Work Phone: [facility] 07-11-2024 09:02-0500 Heart rate 96 /min Dayami Puri MD Work Phone: [facility] 07-11-2024 08:38-0500 Body mass index (BMI) [Ratio] 33.65 kg/m2 Dayami Puri MD Work Phone: [facility] 07-11-2024 08:38-0500 Body weight 88.09 kg Dayami Puri MD Work Phone: [facility] 07-11-2024 08:38-0500 Diastolic blood pressure 64 mm[Hg] Dayami Puri MD Work Phone: [facility] 07-11-2024 08:38-0500 Respiratory rate 20 /min Dayami Puri MD Work Phone: [facility] 07-11-2024 08:38-0500 SaO2% (BldA) [Mass fraction] 93 % Dayami Puri MD Work Phone: [facility] 07-11-2024 08:38-0500 Systolic blood pressure 126 mm[Hg] Dayami Puri MD Work Phone: [facility] 07-06-2024 08:43-0500 Body mass index (BMI) [Ratio] 33.96 kg/m2 Treatment Wstr Work Phone: [facility] 07-06-2024 08:43-0500 Body temperature 97.2 [degF] Treatment Wstr Work Phone: [facility] 07-06-2024 08:43-0500 Body weight 88.91 kg Treatment Wstr Work Phone: [facility] 07-06-2024 08:43-0500 Diastolic blood pressure 73 mm[Hg] Treatment Wstr Work Phone: [facility] 07-06-2024 08:43-0500 Heart rate 113 /min Treatment Wstr Work Phone: [facility] 07-06-2024 08:43-0500 Systolic blood pressure 126 mm[Hg] Treatment Wstr Work Phone: [facility] 06-28-2024 09:00-0500 Body mass index (BMI) [Ratio] 34.07 kg/m2 Silva Cash MEDICAL REPRESENTATIVE.OPERATIONS PROGRAM MANAGER Work Phone: [facility] 06-28-2024 09:00-0500 Body temperature 99.3 [degF] Silva Cash MEDICAL REPRESENTATIVE.OPERATIONS PROGRAM MANAGER Work Phone: [facility] 06-28-2024 09:00-0500 Body weight 89.2 kg Silva Cash MEDICAL REPRESENTATIVE.OPERATIONS PROGRAM MANAGER Work Phone: [facility] 06-28-2024 09:00-0500 Diastolic blood pressure 60 mm[Hg] Silva Vernonhof MEDICAL REPRESENTATIVE.OPERATIONS PROGRAM MANAGER Work Phone: [facility] 06-28-2024 09:00-0500 Heart rate 100 /min Silva Cash MEDICAL REPRESENTATIVE.OPERATIONS PROGRAM MANAGER Work Phone: [facility] 06-28-2024 09:00-0500 Respiratory rate 16 /min Silva Cash MEDICAL REPRESENTATIVE.OPERATIONS PROGRAM MANAGER Work Phone: [facility] 06-28-2024 09:00-0500 SaO2% (BldA) [Mass fraction] 93 % Silva Vernonhof MEDICAL REPRESENTATIVE.OPERATIONS PROGRAM MANAGER Work Phone: [facility] 06-28-2024 09:00-0500 Systolic blood pressure 110 mm[Hg] Silva Cash APRN.OPERATIONS PROGRAM MANAGER Work Phone: [facility] 06-23-2024 10:27-0500 Body temperature 96.01 [degF] Lab/Port Wstr Work Phone: [facility] 06-23-2024 10:27-0500 Diastolic blood pressure 66 mm[Hg] Lab/Port Wstr Work Phone: [facility] 06-23-2024 10:27-0500 Heart rate 69 /min Lab/Port Wstr Work Phone: [facility] 06-23-2024 10:27-0500 Respiratory rate 18 /min Lab/Port Wstr Work Phone: [facility] 06-23-2024 10:27-0500 SaO2% (BldA) [Mass fraction] 94 % Lab/Port Wstr Work Phone: [facility] 06-23-2024 10:27-0500 Systolic blood pressure 124 mm[Hg] Lab/Port Wstr Work Phone: [facility] 06-21-2024 08:34-0500 Body mass index (BMI) [Ratio] 34.91 kg/m2 John Mccray MD Work Phone: [facility] 06-21-2024 08:34-0500 Body temperature 98.01 [degF] John Mccray MD Work Phone: [facility] 06-21-2024 08:34-0500 Body weight 91.4 kg John Mccray MD Work Phone: [facility] 06-21-2024 08:34-0500 Diastolic blood pressure 67 mm[Hg] John Mccray MD Work Phone: [facility] 06-21-2024 08:34-0500 Heart rate 88 /min John Mccray MD Work Phone: [facility] 06-21-2024 08:34-0500 SaO2% (BldA) [Mass fraction] 92 % John Mccray MD Work Phone: [facility] 06-21-2024 08:34-0500 Systolic blood pressure 122 mm[Hg] John Mccray MD Work Phone: [facility] 06-21-2024 08:23-0500 Body mass index (BMI) [Ratio] 34.91 kg/m2 Lab/Port Wstr Work Phone: [facility] 06-21-2024 08:23-0500 Body weight 91.4 kg Lab/Port Wstr Work Phone: [facility] 06-10-2024 11:34-0500 Body temperature 96.91 [degF] Lab/Port Wstr Work Phone: [facility] 06-10-2024 11:34-0500 Diastolic blood pressure 64 mm[Hg] Lab/Port Wstr Work Phone: [facility] 06-10-2024 11:34-0500 Heart rate 63 /min Lab/Port Wstr Work Phone: [facility] 06-10-2024 11:34-0500 Respiratory rate 18 /min Lab/Port Wstr Work Phone: [facility] 06-10-2024 11:34-0500 SaO2% (BldA) [Mass fraction] 95 % Lab/Port [facility]str Work Phone: [facility] 06-10-2024 11:34-0500 Systolic blood pressure 135 mm[Hg] Lab/Port Wstr Work Phone: [facility] 06-08-2024 09:19-0500 Body mass index (BMI) [Ratio] 35.52 kg/m2 Treatment Wstr Work Phone: [facility] 06-08-2024 09:19-0500 Body temperature 97.11 [degF] Treatment Wstr Work Phone: [facility] 06-08-2024 09:19-0500 Body weight 92.99 kg Treatment Wstr Work Phone: [facility] 06-08-2024 09:19-0500 Diastolic blood pressure 73 mm[Hg] Treatment Wstr Work Phone: [facility] 06-08-2024 09:19-0500 Heart rate 78 /min Treatment Wstr Work Phone: [facility] 06-08-2024 09:19-0500 SaO2% (BldA) [Mass fraction] 96 % Treatment Wstr Work Phone: [facility] 06-08-2024 09:19-0500 Systolic blood pressure 136 mm[Hg] Treatment Wstr Work Phone: [facility] 05-27-2024 11:06-0500 Body temperature 96.91 [degF] Lab/Port Wstr Work Phone: [facility] 05-27-2024 11:06-0500 Diastolic blood pressure 82 mm[Hg] Lab/Port Wstr Work Phone: [facility] 05-27-2024 11:06-0500 Heart rate 56 /min Lab/Port [facility]str Work Phone: [facility] 05-27-2024 11:06-0500 Respiratory rate 16 /min Lab/Port Wstr Work Phone: [facility] 05-27-2024 11:06-0500 SaO2% (BldA) [Mass fraction] 97 % Lab/Port Wstr Work Phone: [facility] 05-27-2024 11:06-0500 Systolic blood pressure 146 mm[Hg] Lab/Port Wstr Work Phone: [facility] 05-25-2024 08:47-0500 Body temperature 97.5 [degF] Treatment Wstr Work Phone: [facility] 05-25-2024 08:47-0500 Diastolic blood pressure 77 mm[Hg] Treatment Wstr Work Phone: [facility] 05-25-2024 08:47-0500 Heart rate 74 /min Treatment Wstr Work Phone: [facility] 05-25-2024 08:47-0500 Respiratory rate 18 /min Treatment Wstr Work Phone: [facility] 05-25-2024 08:47-0500 SaO2% (BldA) [Mass fraction] 96 % Treatment Wstr Work Phone: [facility] 05-25-2024 08:47-0500 Systolic blood pressure 135 mm[Hg] Treatment Wstr Work Phone: [facility] 05-24-2024 09:34-0500 Body mass index (BMI) [Ratio] 35.69 kg/m2 Lab/Port Wstr Work Phone: [facility] 05-24-2024 09:34-0500 Body temperature 97.81 [degF] Aarti Masci DO Work Phone: [facility] 05-24-2024 09:34-0500 Body weight 93.44 kg Lab/Port Wstr Work Phone: [facility] 05-24-2024 09:34-0500 Diastolic blood pressure 75 mm[Hg] Aarti Masci DO Work Phone: [facility] 05-24-2024 09:34-0500 Heart rate 65 /min Aarti Masci DO Work Phone: [facility] 05-24-2024 09:34-0500 SaO2% (BldA) [Mass fraction] 97 % Aarti Masci DO Work Phone: [facility] 05-24-2024 09:34-0500 Systolic blood pressure 144 mm[Hg] Aarti Masci DO Work Phone: [facility] 05-13-2024 11:24-0500 Body temperature 97.2 [degF] Lab/Port Wstr Work Phone: [facility] 05-13-2024 11:24-0500 Diastolic blood pressure 76 mm[Hg] Lab/Port Wstr Work Phone: [facility] 05-13-2024 11:24-0500 Heart rate 63 /min Lab/Port Wstr Work Phone: [facility] 05-13-2024 11:24-0500 SaO2% (BldA) [Mass fraction] 96 % Lab/Port Wstr Work Phone: [facility] 05-13-2024 11:24-0500 Systolic blood pressure 142 mm[Hg] Lab/Port Wstr Work Phone: [facility] 05-11-2024 09:12-0500 Body mass index (BMI) [Ratio] 35.69 kg/m2 Treatment Wstr Work Phone: [facility] 05-11-2024 09:12-0500 Body temperature 97.39 [degF] Treatment Wstr Work Phone: [facility] 05-11-2024 09:12-0500 Body weight 93.44 kg Treatment Wstr Work Phone: [facility] 05-11-2024 09:12-0500 Diastolic blood pressure 67 mm[Hg] Treatment Wstr Work Phone: [facility] 05-11-2024 09:12-0500 Heart rate 74 /min Treatment Wstr Work Phone: [facility] 05-11-2024 09:12-0500 SaO2% (BldA) [Mass fraction] 97 % Treatment Wstr Work Phone: [facility] 05-11-2024 09:12-0500 Systolic blood pressure 127 mm[Hg] Treatment Wstr Work Phone: [facility] 04-29-2024 11:38-0400 Body temperature 96.69 [degF] Lab/Port Wstr Work Phone: [facility] 04-29-2024 11:38-0400 Diastolic blood pressure 72 mm[Hg] Lab/Port Wstr Work Phone: [facility] 04-29-2024 11:38-0400 Heart rate 63 /min Lab/Port Wstr Work Phone: [facility] 04-29-2024 11:38-0400 Respiratory rate 18 /min Lab/Port Wstr Work Phone: [facility] 04-29-2024 11:38-0400 SaO2% (BldA) [Mass fraction] 97 % Lab/Port Wstr Work Phone: [facility] 04-29-2024 11:38-0400 Systolic blood pressure 144 mm[Hg] Lab/Port Wstr Work Phone: [facility] 04-27-2024 09:00-0400 Diastolic blood pressure 73 mm[Hg] Treatment Wstr Work Phone: [facility] 04-27-2024 09:00-0400 Heart rate 68 /min Treatment Wstr Work Phone: [facility] 04-27-2024 09:00-0400 Respiratory rate 20 /min Treatment Wstr Work Phone: [facility] 04-27-2024 09:00-0400 SaO2% (BldA) [Mass fraction] 96 % Treatment Wstr Work Phone: [facility] 04-27-2024 09:00-0400 Systolic blood pressure 127 mm[Hg] Treatment Wstr Work Phone: [facility] 04-26-2024 09:46-0400 Body mass index (BMI) [Ratio] 35.35 kg/m2 Aarti [employer]i DO Work Phone: [facility] 04-26-2024 09:46-0400 Body temperature 97.3 [degF] Aarti Masci DO Work Phone: [facility] 04-26-2024 09:46-0400 Body weight 92.53 kg Aarti Masci DO Work Phone: [facility] 04-26-2024 09:46-0400 Diastolic blood pressure 77 mm[Hg] Aarti Masci DO Work Phone: [facility] 04-26-2024 09:46-0400 Heart rate 64 /min Aarti Masci DO Work Phone: [facility] 04-26-2024 09:46-0400 SaO2% (BldA) [Mass fraction] 96 % Aarti Masci DO Work Phone: [facility] 04-26-2024 09:46-0400 Systolic blood pressure 150 mm[Hg] Aarti Bar DO Work Phone: [facility] 04-26-2024 09:39-0400 Body mass index (BMI) [Ratio] 35.35 kg/m2 Lab/Port Wstr Work Phone: [facility] 04-26-2024 09:39-0400 Body weight 92.53 kg Lab/Port Wstr Work Phone: [facility] 04-15-2024 11:38-0400 Body temperature 97.39 [degF] Lab/Port Wstr Work Phone: [facility] 04-15-2024 11:38-0400 Diastolic blood pressure 70 mm[Hg] Lab/Port Wstr Work Phone: [facility] 04-15-2024 11:38-0400 Heart rate 65 /min Lab/Port Wstr Work Phone: [facility] 04-15-2024 11:38-0400 Respiratory rate 20 /min Lab/Port Wstr Work Phone: [facility] 04-15-2024 11:38-0400 Systolic blood pressure 125 mm[Hg] Lab/Port Wstr Work Phone: [facility] 04-13-2024 09:51-0400 Body temperature 97.2 [degF] Treatment Wstr Work Phone: [facility] 04-13-2024 09:51-0400 Diastolic blood pressure 67 mm[Hg] Treatment Wstr Work Phone: [facility] 04-13-2024 09:51-0400 Heart rate 68 /min Treatment Wstr Work Phone: [facility] 04-13-2024 09:51-0400 SaO2% (BldA) [Mass fraction] 94 % Treatment Wstr Work Phone: [facility] 04-13-2024 09:51-0400 Systolic blood pressure 125 mm[Hg] Treatment Wstr Work Phone: [facility] 04-12-2024 10:05-0400 Body mass index (BMI) [Ratio] 35.17 kg/m2 Aarti Salasi DO Work Phone: [facility] 04-12-2024 10:05-0400 Body temperature 97.11 [degF] Aarti Josuei DO Work Phone: [facility] 04-12-2024 10:05-0400 Body weight 92.08 kg Aarti Josuei DO Work Phone: [facility] 04-12-2024 10:05-0400 Diastolic blood pressure 54 mm[Hg] Aarti Josuei DO Work Phone: [facility] 04-12-2024 10:05-0400 Heart rate 75 /min Aarti Salasi DO Work Phone: [facility] 04-12-2024 10:05-0400 SaO2% (BldA) [Mass fraction] 96 % Aarti Salasi DO Work Phone: [facility] 04-12-2024 10:05-0400 Systolic blood pressure 135 mm[Hg] Aarti Josuei DO Work Phone: [facility] 04-12-2024 09:55-0400 Body mass index (BMI) [Ratio] 35.17 kg/m2 Lab/Port Wstr Work Phone: [facility] 04-12-2024 09:55-0400 Body weight 92.08 kg Lab/Port Wstr Work Phone: [facility] 04-08-2024 09:20-0400 Body mass index (BMI) [Ratio] 34.65 kg/m2 Injection Wstr Work Phone: [facility] 04-08-2024 09:20-0400 Body temperature 97.2 [degF] Injection Wstr Work Phone: [facility] 04-08-2024 09:20-0400 Body weight 90.72 kg Injection Wstr Work Phone: [facility] 04-08-2024 09:20-0400 Diastolic blood pressure 75 mm[Hg] Injection Wstr Work Phone: [facility] 04-08-2024 09:20-0400 Heart rate 104 /min Injection Wstr Work Phone: [facility] 04-08-2024 09:20-0400 SaO2% (BldA) [Mass fraction] 93 % Injection Wstr Work Phone: [facility] 04-08-2024 09:20-0400 Systolic blood pressure 155 mm[Hg] Injection Wstr Work Phone: [facility] 04-01-2024 11:43-0400 Body temperature 97.3 [degF] Lab/Port Wstr Work Phone: [facility] 04-01-2024 11:43-0400 Diastolic blood pressure 71 mm[Hg] Lab/Port Wstr Work Phone: [facility] 04-01-2024 11:43-0400 Heart rate 76 /min Lab/Port Wstr Work Phone: [facility] 04-01-2024 11:43-0400 Respiratory rate 18 /min Lab/Port Wstr Work Phone: [facility] 04-01-2024 11:43-0400 SaO2% (BldA) [Mass fraction] 97 % Lab/Port Wstr Work Phone: [facility] 04-01-2024 11:43-0400 Systolic blood pressure 118 mm[Hg] Lab/Port Wstr Work Phone: [facility] 03-30-2024 09:38-0400 Body temperature 97.3 [degF] Treatment Wstr Work Phone: [facility] 03-30-2024 09:38-0400 Heart rate 90 /min Treatment Wstr Work Phone: [facility] 03-30-2024 09:38-0400 SaO2% (BldA) [Mass fraction] 94 % Treatment Wstr Work Phone: [facility] 03-29-2024 08:23-0400 Body mass index (BMI) [Ratio] 35.09 kg/m2 Aarti Masci DO Work Phone: [facility] 03-29-2024 08:23-0400 Body temperature 98.2 [degF] Aarti Josuei DO Work Phone: [facility] 03-29-2024 08:23-0400 Body weight 91.85 kg Aarti Masci DO Work Phone: [facility] 03-29-2024 08:23-0400 Diastolic blood pressure 82 mm[Hg] Aarti Masci DO Work Phone: [facility] 03-29-2024 08:23-0400 Heart rate 108 /min Aarti Masci DO Work Phone: [facility] 03-29-2024 08:23-0400 SaO2% (BldA) [Mass fraction] 92 % Aarti Josuei DO Work Phone: [facility] 03-29-2024 08:23-0400 Systolic blood pressure 136 mm[Hg] Aarti Josuei DO Work Phone: [facility] 03-29-2024 08:20-0400 Body mass index (BMI) [Ratio] 35.09 kg/m2 Lab/Port Wstr Work Phone: [facility] 03-29-2024 08:20-0400 Body weight 91.85 kg Lab/Port Wstr Work Phone: [facility] 03-23-2024 10:52-0400 Diastolic blood pressure 78 mm[Hg] Injection Wstr Work Phone: [facility] 03-23-2024 10:52-0400 Heart rate 98 /min Injection Wstr Work Phone: [facility] 03-23-2024 10:52-0400 Systolic blood pressure 146 mm[Hg] Injection Wstr Work Phone: [facility] 03-16-2024 08:12-0400 Body mass index (BMI) [Ratio] 34.65 kg/m2 Treatment Wstr Work Phone: [facility] 03-16-2024 08:12-0400 Body temperature 97.9 [degF] Treatment Wstr Work Phone: [facility] 03-16-2024 08:12-0400 Body weight 90.7 kg Treatment Wstr Work Phone: [facility] 03-16-2024 08:12-0400 Diastolic blood pressure 67 mm[Hg] Treatment Wstr Work Phone: [facility] 03-16-2024 08:12-0400 Heart rate 107 /min Treatment Wstr Work Phone: [facility] 03-16-2024 08:12-0400 SaO2% (BldA) [Mass fraction] 93 % Treatment Wstr Work Phone: [facility] 03-16-2024 08:12-0400 Systolic blood pressure 142 mm[Hg] Treatment Wstr Work Phone: [facility] 03-15-2024 08:53-0400 Body mass index (BMI) [Ratio] 34.65 kg/m2 Rhonda Owens Work Phone: [facility] 03-15-2024 08:53-0400 Body temperature 97.81 [degF] Rhonda Owens Work Phone: [facility] 03-15-2024 08:53-0400 Body weight 90.72 kg Rhonda Owens Work Phone: [facility] 03-15-2024 08:53-0400 Diastolic blood pressure 79 mm[Hg] Rhonda Owens Work Phone: [facility] 03-15-2024 08:53-0400 Heart rate 101 /min Rhonda Owens Work Phone: [facility] 03-15-2024 08:53-0400 SaO2% (BldA) [Mass fraction] 97 % Rhonda Owens Work Phone: [facility] 03-15-2024 08:53-0400 Systolic blood pressure 149 mm[Hg] Rhonda Owens Work Phone: [facility] 03-15-2024 08:41-0400 Body mass index (BMI) [Ratio] 34.65 kg/m2 Lab/Port Wstr Work Phone: [facility] 03-15-2024 08:41-0400 Body weight 90.72 kg Lab/Port Wstr Work Phone: [facility] 03-08-2024 08:17-0400 Body height 161.8 cm Dayami Puri MD Work Phone: [facility] 03-08-2024 08:17-0400 Body mass index (BMI) [Ratio] 34.51 kg/m2 Dayami Puri MD Work Phone: [facility] 03-08-2024 08:17-0400 Body weight 90.36 kg Dayami Puri MD Work Phone: [facility] 03-08-2024 08:17-0400 Diastolic blood pressure 70 mm[Hg] Dayami Puri MD Work Phone: [facility] 03-08-2024 08:17-0400 Heart rate 93 /min Dayami Puri MD Work Phone: [facility] 03-08-2024 08:17-0400 Respiratory rate 20 /min Dayami Puri MD Work Phone: [facility] 03-08-2024 08:17-0400 SaO2% (BldA) [Mass fraction] 98 % Dayami Puri MD Work Phone: [facility] 03-08-2024 08:17-0400 Systolic blood pressure 128 mm[Hg] Dayami Puri MD Work Phone: [facility] 03-04-2024 11:51-0400 Body temperature 97.39 [degF] Lab/Port Wstr Work Phone: [facility] 03-04-2024 11:51-0400 Diastolic blood pressure 74 mm[Hg] Lab/Port Wstr Work Phone: [facility] 03-04-2024 11:51-0400 Heart rate 84 /min Lab/Port Wstr Work Phone: [facility] 03-04-2024 11:51-0400 Respiratory rate 20 /min Lab/Port Wstr Work Phone: [facility] 03-04-2024 11:51-0400 Systolic blood pressure 127 mm[Hg] Lab/Port Wstr Work Phone: [facility] 03-02-2024 08:50-0400 Body temperature 98.1 [degF] Treatment Wstr Work Phone: [facility] 03-02-2024 08:50-0400 Diastolic blood pressure 82 mm[Hg] Treatment Wstr Work Phone: [facility] 03-02-2024 08:50-0400 Heart rate 90 /min Treatment Wstr Work Phone: [facility] 03-02-2024 08:50-0400 Respiratory rate 14 /min Treatment Wstr Work Phone: [facility] 03-02-2024 08:50-0400 SaO2% (BldA) [Mass fraction] 95 % Treatment Wstr Work Phone: [facility] 03-02-2024 08:50-0400 Systolic blood pressure 140 mm[Hg] Treatment Wstr Work Phone: [facility] 03-01-2024 09:21-0400 Body mass index (BMI) [Ratio] 33.48 kg/m2 Rhondasarah Owens Work Phone: [facility] 03-01-2024 09:21-0400 Body temperature 98.01 [degF] Rhnoda Owens Work Phone: [facility] 03-01-2024 09:21-0400 Body weight 90.04 kg Rhonda Owens Work Phone: [facility] 03-01-2024 09:21-0400 Diastolic blood pressure 74 mm[Hg] Rhonda Lucasight Work Phone: [facility] 03-01-2024 09:21-0400 Heart rate 89 /min Rhonda Lucasight Work Phone: [facility] 03-01-2024 09:21-0400 SaO2% (BldA) [Mass fraction] 96 % Rhonda Owens Work Phone: [facility] 03-01-2024 09:21-0400 Systolic blood pressure 125 mm[Hg] Rhonda Owens Work Phone: [facility] 03-01-2024 09:08-0400 Body mass index (BMI) [Ratio] 33.48 kg/m2 Lab/Port Wstr Work Phone: [facility] 03-01-2024 09:08-0400 Body weight 90.04 kg Lab/Port Wstr Work Phone: [facility] 02-19-2024 10:00-0400 Body temperature 96.91 [degF] Lab/Port Wstr Work Phone: [facility] 02-19-2024 10:00-0400 Diastolic blood pressure 77 mm[Hg] Lab/Port Wstr Work Phone: [facility] 02-19-2024 10:00-0400 Heart rate 88 /min Lab/Port Wstr Work Phone: [facility] 02-19-2024 10:00-0400 Respiratory rate 16 /min Lab/Port Wstr Work Phone: [facility] 02-19-2024 10:00-0400 SaO2% (BldA) [Mass fraction] 96 % Lab/Port Wstr Work Phone: [facility] 02-19-2024 10:00-0400 Systolic blood pressure 128 mm[Hg] Lab/Port Wstr Work Phone: [facility] 02-17-2024 08:00-0400 Body temperature 97.3 [degF] Treatment Wstr Work Phone: [facility] 02-17-2024 08:00-0400 Diastolic blood pressure 62 mm[Hg] Treatment Wstr Work Phone: [facility] 02-17-2024 08:00-0400 Heart rate 92 /min Treatment Wstr Work Phone: [facility] 02-17-2024 08:00-0400 Systolic blood pressure 111 mm[Hg] Treatment Wstr Work Phone: [facility] 02-16-2024 09:36-0400 Body mass index (BMI) [Ratio] 33.9 kg/m2 Rhonda Owens Work Phone: [facility] 02-16-2024 09:36-0400 Body temperature 97.7 [degF] Rhonda Owens Work Phone: [facility] 02-16-2024 09:36-0400 Body weight 91.17 kg Rhonda Owens Work Phone: [facility] 02-16-2024 09:36-0400 Diastolic blood pressure 74 mm[Hg] Rhonda Owens Work Phone: [facility] 02-16-2024 09:36-0400 Heart rate 98 /min Rhonda Owens Work Phone: [facility] 02-16-2024 09:36-0400 SaO2% (BldA) [Mass fraction] 91 % Rhonda Owens Work Phone: [facility] 02-16-2024 09:36-0400 Systolic blood pressure 120 mm[Hg] Rhonda Owens Work Phone: [facility] 02-02-2024 10:52-0400 Body mass index (BMI) [Ratio] 33.22 kg/m2 Aarti Masci DO Work Phone: [facility] 02-02-2024 10:52-0400 Body temperature 97.81 [degF] Aarti Masci DO Work Phone: [facility] 02-02-2024 10:52-0400 Body weight 89.36 kg Aarti Masci DO Work Phone: [facility] 02-02-2024 10:52-0400 Diastolic blood pressure 76 mm[Hg] Aarti Masci DO Work Phone: [facility] 02-02-2024 10:52-0400 Heart rate 99 /min Aarti Masci DO Work Phone: [facility] 02-02-2024 10:52-0400 SaO2% (BldA) [Mass fraction] 91 % Aarti Bar DO Work Phone: [facility] 02-02-2024 10:52-0400 Systolic blood pressure 116 mm[Hg] Aarti Bar DO Work Phone: [facility] 01-22-2024 10:40-0400 Body temperature 97.39 [degF] Lab/Port Wstr Work Phone: [facility] 01-22-2024 10:40-0400 Diastolic blood pressure 88 mm[Hg] Lab/Port Wstr Work Phone: [facility] 01-22-2024 10:40-0400 Heart rate 70 /min Lab/Port Wstr Work Phone: [facility] 01-22-2024 10:40-0400 Respiratory rate 16 /min Lab/Port Wstr Work Phone: [facility] 01-22-2024 10:40-0400 SaO2% (BldA) [Mass fraction] 95 % Lab/Port Wstr Work Phone: [facility] 01-22-2024 10:40-0400 Systolic blood pressure 155 mm[Hg] Lab/Port Wstr Work Phone: [facility] 01-20-2024 08:22-0400 Body temperature 97.81 [degF] Treatment Wstr Work Phone: [facility] 01-20-2024 08:22-0400 Diastolic blood pressure 58 mm[Hg] Treatment Wstr Work Phone: [facility] 01-20-2024 08:22-0400 Heart rate 77 /min Treatment Wstr Work Phone: [facility] 01-20-2024 08:22-0400 Respiratory rate 18 /min Treatment Wstr Work Phone: [facility] 01-20-2024 08:22-0400 SaO2% (BldA) [Mass fraction] 96 % Treatment Wstr Work Phone: [facility] 01-20-2024 08:22-0400 Systolic blood pressure 125 mm[Hg] Treatment Wstr Work Phone: [facility] 01-19-2024 15:36-0400 Body mass index (BMI) [Ratio] 34.99 kg/m2 Aarti Masci DO Work Phone: [facility] 01-19-2024 15:36-0400 Body temperature 97.81 [degF] Aarti Masci DO Work Phone: [facility] 01-19-2024 15:36-0400 Body weight 94.12 kg Aarti Masci DO Work Phone: [facility] 01-19-2024 15:36-0400 Diastolic blood pressure 75 mm[Hg] Aarti Masci DO Work Phone: [facility] 01-19-2024 15:36-0400 Heart rate 74 /min Aarti Masci DO Work Phone: [facility] 01-19-2024 15:36-0400 SaO2% (BldA) [Mass fraction] 95 % Aarti Masci DO Work Phone: [facility] 01-19-2024 15:36-0400 Systolic blood pressure 134 mm[Hg] Aarti Masci DO Work Phone: [facility] 01-19-2024 15:27-0400 Body mass index (BMI) [Ratio] 34.99 kg/m2 Lab/Port Wstr Work Phone: [facility] 01-19-2024 15:27-0400 Body weight 94.12 kg Lab/Port Wstr Work Phone: [facility] 01-08-2024 11:57-0400 Body temperature 97.59 [degF] Lab/Port Wstr Work Phone: [facility] 01-08-2024 11:57-0400 Diastolic blood pressure 73 mm[Hg] Lab/Port Wstr Work Phone: [facility] 01-08-2024 11:57-0400 Heart rate 88 /min Lab/Port Wstr Work Phone: [facility] 01-08-2024 11:57-0400 Respiratory rate 18 /min Lab/Port Wstr Work Phone: [facility] 01-08-2024 11:57-0400 SaO2% (BldA) [Mass fraction] 98 % Lab/Port Wstr Work Phone: [facility] 01-08-2024 11:57-0400 Systolic blood pressure 136 mm[Hg] Lab/Port Wstr Work Phone: [facility] 01-06-2024 09:11-0400 Body mass index (BMI) [Ratio] 34.74 kg/m2 Treatment Wstr Work Phone: [facility] 01-06-2024 09:11-0400 Body temperature 97.81 [degF] Treatment Wstr Work Phone: [facility] 01-06-2024 09:11-0400 Body weight 93.44 kg Treatment Wstr Work Phone: [facility] 01-06-2024 09:11-0400 Diastolic blood pressure 60 mm[Hg] Treatment Wstr Work Phone: [facility] 01-06-2024 09:11-0400 Heart rate 92 /min Treatment Wstr Work Phone: [facility] 01-06-2024 09:11-0400 Respiratory rate 18 /min Treatment Wstr Work Phone: [facility] 01-06-2024 09:11-0400 SaO2% (BldA) [Mass fraction] 94 % Treatment Wstr Work Phone: [facility] 01-06-2024 09:11-0400 Systolic blood pressure 140 mm[Hg] Treatment Wstr Work Phone: [facility] 01-01-2024 08:29-0400 Body height 170.2 cm Dayami Roe MD Work Phone: [facility] 01-01-2024 08:29-0400 Body mass index (BMI) [Ratio] 32.8 kg/m2 Dayami Roe MD Work Phone: [facility] 01-01-2024 08:29-0400 Body weight 94.98 kg Dayami Roe MD Work Phone: [facility] 01-01-2024 08:29-0400 Diastolic blood pressure 68 mm[Hg] Dayami Roe MD Work Phone: [facility] 01-01-2024 08:29-0400 Heart rate 81 /min Dayami Roe MD Work Phone: [facility] 01-01-2024 08:29-0400 SaO2% (BldA) [Mass fraction] 93 % Dayami Roe MD Work Phone: [facility] 01-01-2024 08:29-0400 Systolic blood pressure 134 mm[Hg] Dayami Roe MD Work Phone: [facility] 12-30-2023 13:50-0400 Body temperature 98.6 [degF] Treatment Wstr Work Phone: [facility] 12-30-2023 13:50-0400 Diastolic blood pressure 77 mm[Hg] Treatment Wstr Work Phone: [facility] 12-30-2023 13:50-0400 Heart rate 96 /min Treatment Wstr Work Phone: [facility] 12-30-2023 13:50-0400 SaO2% (BldA) [Mass fraction] 95 % Treatment Wstr Work Phone: [facility] 12-30-2023 13:50-0400 Systolic blood pressure 146 mm[Hg] Treatment Wstr Work Phone: [facility] 12-25-2023 14:00-0400 Body temperature 97.81 [degF] Treatment Wstr Work Phone: [facility] 12-25-2023 14:00-0400 Diastolic blood pressure 53 mm[Hg] Treatment Wstr Work Phone: [facility] 12-25-2023 14:00-0400 Heart rate 77 /min Treatment Wstr Work Phone: [facility] 12-25-2023 14:00-0400 Systolic blood pressure 141 mm[Hg] Treatment Wstr Work Phone: [facility] 12-23-2023 13:53-0400 Body temperature 97.11 [degF] Treatment Wstr Work Phone: [facility] 12-23-2023 13:53-0400 Diastolic blood pressure 70 mm[Hg] Treatment Wstr Work Phone: [facility] 12-23-2023 13:53-0400 Heart rate 80 /min Treatment Wstr Work Phone: [facility] 12-23-2023 13:53-0400 Systolic blood pressure 131 mm[Hg] Treatment Wstr Work Phone: [facility] 12-21-2023 10:49-0400 Body temperature 98.01 [degF] Treatment Wstr Work Phone: [facility] 12-21-2023 10:49-0400 Diastolic blood pressure 76 mm[Hg] Treatment Wstr Work Phone: [facility] 12-21-2023 10:49-0400 Heart rate 75 /min Treatment Wstr Work Phone: [facility] 12-21-2023 10:49-0400 Respiratory rate 18 /min Treatment Wstr Work Phone: [facility] 12-21-2023 10:49-0400 Systolic blood pressure 139 mm[Hg] Treatment Wstr Work Phone: [facility] 12-15-2023 14:07-0400 Body height 164 cm Aarti Josuei DO Work Phone: [facility] 12-15-2023 14:07-0400 Body mass index (BMI) [Ratio] 35.08 kg/m2 Aarti Masci DO Work Phone: [facility] 12-15-2023 14:07-0400 Body temperature 98.8 [degF] Aarti Salasi DO Work Phone: [facility] 12-15-2023 14:07-0400 Body weight 94.35 kg Aarti Salasi DO Work Phone: [facility] 12-15-2023 14:07-0400 Diastolic blood pressure 76 mm[Hg] Aarti Salasi DO Work Phone: [facility] 12-15-2023 14:07-0400 Heart rate 96 /min Aarti Salasi DO Work Phone: [facility] 12-15-2023 14:07-0400 SaO2% (BldA) [Mass fraction] 94 % Aarti Salasi DO Work Phone: [facility] 12-15-2023 14:07-0400 Systolic blood pressure 132 mm[Hg] Aarti Salasi DO Work Phone: [facility] 11-30-2023 10:35-0400 Body height 170.2 cm Hayden Aaronpel DO Work Phone: [facility] 11-30-2023 10:35-0400 Body mass index (BMI) [Ratio] 32.44 kg/m2 Hayden Angelelpel DO Work Phone: [facility] 11-30-2023 10:35-0400 Body temperature 98.29 [degF] Hayden Aneglelpel DO Work Phone: [facility] 11-30-2023 10:35-0400 Body weight 93.94 kg Hayden Angelelpel DO Work Phone: [facility] 11-30-2023 10:35-0400 Diastolic blood pressure 76 mm[Hg] Hayden Angelelpel DO Work Phone: [facility] 11-30-2023 10:35-0400 Heart rate 99 /min Hayden Angelelpel DO Work Phone: [facility] 11-30-2023 10:35-0400 SaO2% (BldA) [Mass fraction] 89 % Hayden Angelelpel DO Work Phone: [facility] 11-30-2023 10:35-0400 Systolic blood pressure 160 mm[Hg] Hayden Voelpel DO Work Phone: [facility] 11-13-2023 11:06-0400 Body height 170.2 cm Dayami Roe MD Work Phone: [facility] 11-13-2023 11:06-0400 Body mass index (BMI) [Ratio] 32.56 kg/m2 Dayami Roe MD Work Phone: [facility] 11-13-2023 11:06-0400 Body weight 94.3 kg Dayami Roe MD Work Phone: [facility] 11-13-2023 11:06-0400 Diastolic blood pressure 60 mm[Hg] Dayami Roe MD Work Phone: [facility] 11-13-2023 11:06-0400 Heart rate 105 /min Dayami Roe MD Work Phone: [facility] 11-13-2023 11:06-0400 SaO2% (BldA) [Mass fraction] 93 % Dayami Roe MD Work Phone: [facility] 11-13-2023 11:06-0400 Systolic blood pressure 130 mm[Hg] Dayami Roe MD Work Phone: [facility] 11-11-2023 14:49-0400 Body mass index (BMI) [Ratio] 33.22 kg/m2 Hayden Voelpel DO Work Phone: [facility] 11-11-2023 14:49-0400 Body temperature 97.7 [degF] Hayden Voelpel DO Work Phone: [facility] 11-11-2023 14:49-0400 Body weight 96.21 kg Hayden Voelpel DO Work Phone: [facility] 11-11-2023 14:49-0400 Diastolic blood pressure 77 mm[Hg] Hayden Voelpel DO Work Phone: [facility] 11-11-2023 14:49-0400 Heart rate 105 /min Hayden Voelpel DO Work Phone: [facility] 11-11-2023 14:49-0400 SaO2% (BldA) [Mass fraction] 91 % Hayden Balderas DO Work Phone: [facility] 11-11-2023 14:49-0400 Systolic blood pressure 130 mm[Hg] Hayden Balderas DO Work Phone: [facility] 11-09-2023 10:31-0400 Body height 170.2 cm Austen Hall MD Work Phone: [facility] 11-09-2023 10:31-0400 Body mass index (BMI) [Ratio] 33.53 kg/m2 Austen Hall MD Work Phone: [facility] 11-09-2023 10:31-0400 Body weight 97.11 kg Austen Hall MD Work Phone: [facility] 11-09-2023 10:31-0400 Diastolic blood pressure 76 mm[Hg] Austen Hall MD Work Phone: [facility] 11-09-2023 10:31-0400 Heart rate 99 /min Austen Hall MD Work Phone: [facility] 11-09-2023 10:31-0400 SaO2% (BldA) [Mass fraction] 92 % Austen Hall MD Work Phone: [facility] 11-09-2023 10:31-0400 Systolic blood pressure 146 mm[Hg] Austen Hall MD Work Phone: [facility] 10-29-2023 17:12-0400 Diastolic blood pressure 51 mm[Hg] Arias Jyoti DO Work Phone: [facility] 10-29-2023 17:12-0400 Heart rate 86 /min Arias Jyoti DO Work Phone: [facility] 10-29-2023 17:12-0400 Respiratory rate 18 /min Arias Jyoti DO Work Phone: [facility] 10-29-2023 17:12-0400 SaO2% (BldA) [Mass fraction] 93 % Arias Franco DO Work Phone: [facility] 10-29-2023 17:12-0400 Systolic blood pressure 151 mm[Hg] Arias Ortegaran DO Work Phone: [facility] 10-29-2023 05:22-0400 Body temperature 97.81 [degF] Arias Ortegaran DO Work Phone: [facility] 10-19-2023 08:51-0400 Body height 170.2 cm Arias Ortegaran DO Work Phone: [facility] 10-19-2023 08:51-0400 Body mass index (BMI) [Ratio] 36.02 kg/m2 Arias Franco DO Work Phone: [facility] 10-19-2023 08:51-0400 Body weight 104.33 kg Arias Franco DO Work Phone: [facility] 09-28-2023 11:41-0400 Body height 170.2 cm Dayami Roe MD Work Phone: [facility] 09-28-2023 11:41-0400 Body mass index (BMI) [Ratio] 35.93 kg/m2 Dayami Roe MD Work Phone: [facility] 09-28-2023 11:41-0400 Body weight 104.06 kg Dayami Roe MD Work Phone: [facility] 09-28-2023 11:41-0400 Diastolic blood pressure 52 mm[Hg] Dayami Roe MD Work Phone: [facility] 09-28-2023 11:41-0400 Heart rate 91 /min Dayami Roe MD Work Phone: [facility] 09-28-2023 11:41-0400 SaO2% (BldA) [Mass fraction] 92 % Dayami Roe MD Work Phone: [facility] 09-28-2023 11:41-0400 Systolic blood pressure 130 mm[Hg] Dayami Roe MD Work Phone: [facility] 07-03-2023 08:22-0500 Body height 170.2 cm Dayami Roe MD Work Phone: [facility] 07-03-2023 08:22-0500 Body mass index (BMI) [Ratio] 36.96 kg/m2 Dayami Roe MD Work Phone: [facility] 07-03-2023 08:22-0500 Body weight 107.05 kg Dayami Roe MD Work Phone: [facility] 07-03-2023 08:22-0500 Diastolic blood pressure 60 mm[Hg] Dayami Roe MD Work Phone: [facility] 07-03-2023 08:22-0500 Heart rate 92 /min Dayami Roe MD Work Phone: [facility] 07-03-2023 08:22-0500 SaO2% (BldA) [Mass fraction] 93 % Dayami Roe MD Work Phone: [facility] 07-03-2023 08:22-0500 Systolic blood pressure 124 mm[Hg] Dayami Roe MD Work Phone: [facility] 05-18-2023 10:49-0500 Diastolic blood pressure 75 mm[Hg] David Argueta MD Work Phone: [facility] 05-18-2023 10:49-0500 Heart rate 95 /min David Argueta MD Work Phone: [facility] 05-18-2023 10:49-0500 SaO2% (BldA) [Mass fraction] 92 % David Argueta MD Work Phone: [facility] 05-18-2023 10:49-0500 Systolic blood pressure 138 mm[Hg] David Argueta MD Work Phone: [facility] 05-18-2023 10:41-0500 Body height 167.6 cm David Argueta MD Work Phone: [facility] 05-18-2023 10:41-0500 Body mass index (BMI) [Ratio] 38.64 kg/m2 David Argueta MD Work Phone: [facility] 05-18-2023 10:41-0500 Body weight 108.59 kg David Argueta MD Work Phone: [facility] 12-31-2022 09:40-0400 Body height 170.2 cm Dayami Roe MD Work Phone: [facility] 12-31-2022 09:40-0400 Body mass index (BMI) [Ratio] 37.2 kg/m2 Dayami Roe MD Work Phone: [facility] 12-31-2022 09:40-0400 Body weight 107.73 kg Dayami Roe MD Work Phone: [facility] 12-31-2022 09:40-0400 Diastolic blood pressure 56 mm[Hg] Dayami Roe MD Work Phone: [facility] 12-31-2022 09:40-0400 Heart rate 85 /min Dayami Roe MD Work Phone: [facility] 12-31-2022 09:40-0400 SaO2% (BldA) [Mass fraction] 94 % Dayami Roe MD Work Phone: [facility] 12-31-2022 09:40-0400 Systolic blood pressure 120 mm[Hg] Dayami Roe MD Work Phone: [facility] 07-03-2022 09:28-0500 Body height 170.18 cm Dayami Roe Work Phone: [facility] Work Phone: 07-03-2022 09:28-0500 Body mass index (BMI) [Ratio] 38.11 kg/m2 Dayami Roe Work Phone: [facility] Work Phone: 07-03-2022 09:28-0500 Body surface area Derived from formula 2.2 m2 Dayami Roe Work Phone: [facility] Work Phone: 07-03-2022 09:28-0500 Body weight 110.37 kg Dayami Roe Work Phone: [employer] Work Phone: 07-03-2022 09:28-0500 Diastolic blood pressure 60 mm[Hg] Dayami Roe Work Phone: [employer] Work Phone: 07-03-2022 09:28-0500 Heart rate 89 /min Dayami Roe Work Phone: [employer] [facility] Work Phone: 07-03-2022 09:28-0500 SaO2% (BldA) [Mass fraction] 94 % Dayami Roe Work Phone: [employer] [employer] [facility] Work Phone: 07-03-2022 09:28-0500 Systolic blood pressure 140 mm[Hg] Dayami Roe Work Phone: [facility] [employer] [facility] Work Phone: 05-27-2022 08:24-0500 Body height 167.6 cm Dipti Hoffman MD Work Phone: [facility] 05-27-2022 08:24-0500 Body mass index (BMI) [Ratio] 38.9 kg/m2 Dipti Hoffman MD Work Phone: [facility] 05-27-2022 08:24-0500 Body weight 109.32 kg Dipti Hoffman MD Work Phone: [facility] 05-27-2022 08:24-0500 Diastolic blood pressure 80 mm[Hg] Dipti Hoffman MD Work Phone: [facility] 05-27-2022 08:24-0500 Heart rate 81 /min Dipti Hoffman MD Work Phone: [facility] 05-27-2022 08:24-0500 SaO2% (BldA) [Mass fraction] 93 % Dipti Hoffman MD Work Phone: [facility] 05-27-2022 08:24-0500 Systolic blood pressure 159 mm[Hg] Dipti Hoffman MD Work Phone: [facility] 04-24-2022 11:16-0400 Body height 170.18 cm Dayami Roe Work Phone: [facility] Work Phone: 04-24-2022 11:16-0400 Body mass index (BMI) [Ratio] 38.22 kg/m2 Dayami Roe Work Phone: [facility] Work Phone: 04-24-2022 11:16-0400 Body surface area Derived from formula 2.2 m2 Dayami Roe Work Phone: [facility] Work Phone: 04-24-2022 11:16-0400 Body weight 110.68 kg Dayami Roe Work Phone: [facility] Work Phone: 04-24-2022 11:16-0400 Diastolic blood pressure 81 mm[Hg] Dayami Roe Work Phone: [facility] Work Phone: 04-24-2022 11:16-0400 Heart rate 76 /min Dayami Roe Work Phone: [facility] Work Phone: 04-24-2022 11:16-0400 Respiratory rate 20 /min Dayami Roe Work Phone: [facility] Work Phone: 04-24-2022 11:16-0400 Systolic blood pressure 176 mm[Hg] Dayami Roe Work Phone: [facility] Work Phone: 04-01-2022 10:58-0400 Body height 170.18 cm Dayami Roe Work Phone: [facility] Work Phone: 04-01-2022 10:58-0400 Body mass index (BMI) [Ratio] 37.75 kg/m2 Dayami Roe Work Phone: [facility] Work Phone: 04-01-2022 10:58-0400 Body surface area Derived from formula 2.19 m2 Dayami Roe Work Phone: [facility] Work Phone: 04-01-2022 10:58-0400 Body weight 109.32 kg Dayami Roe Work Phone: [facility] Work Phone: 04-01-2022 10:58-0400 Diastolic blood pressure 60 mm[Hg] Dayami Roe Work Phone: [facility] Work Phone: 04-01-2022 10:58-0400 Heart rate 91 /min Dayami Roe Work Phone: [facility] Work Phone: 04-01-2022 10:58-0400 SaO2% (BldA) [Mass fraction] 95 % Dayami Roe Work Phone: [facility] Work Phone: 04-01-2022 10:58-0400 Systolic blood pressure 140 mm[Hg] Dayami Roe Work Phone: [employer] Work Phone: 03-25-2022 15:41-0400 Body height 170.18 cm Dayami Roe Work Phone: [facility] Work Phone: 03-25-2022 15:41-0400 Body mass index (BMI) [Ratio] 37.36 kg/m2 Dayami Roe Work Phone: [facility] Work Phone: 03-25-2022 15:41-0400 Body surface area Derived from formula 2.18 m2 Dayami Roe Work Phone: [facility] Work Phone: 03-25-2022 15:41-0400 Body weight 108.21 kg Dayami Roe Work Phone: [employer] Work Phone: 03-25-2022 15:41-0400 Diastolic blood pressure 60 mm[Hg] Dayami Roe Work Phone: [facility] Work Phone: 03-25-2022 15:41-0400 Heart rate 97 /min Dayami Roe Work Phone: [facility] Work Phone: 03-25-2022 15:41-0400 SaO2% (BldA) [Mass fraction] 95 % Dayami Roe Work Phone: [employer] Work Phone: 03-25-2022 15:41-0400 Systolic blood pressure 140 mm[Hg] Dayami Roe Work Phone: [facility] Work Phone: 02-21-2022 11:25-0400 Body height 170.18 cm Dayami Roe Work Phone: [facility] Work Phone: 02-21-2022 11:25-0400 Body mass index (BMI) [Ratio] 37.35 kg/m2 Dayami Roe Work Phone: [facility] Work Phone: 02-21-2022 11:25-0400 Body surface area Derived from formula 2.18 m2 Dayami Roe Work Phone: [facility] Work Phone: 02-21-2022 11:25-0400 Body weight 108.18 kg Dayami Roe Work Phone: [facility] Work Phone: 02-21-2022 11:25-0400 Diastolic blood pressure 60 mm[Hg] Dayami Roe Work Phone: [facility] Work Phone: 02-21-2022 11:25-0400 Heart rate 80 /min Dayami Roe Work Phone: [facility] Work Phone: 02-21-2022 11:25-0400 SaO2% (BldA) [Mass fraction] 94 % Dayami Roe Work Phone: [facility] Work Phone: 02-21-2022 11:25-0400 Systolic blood pressure 140 mm[Hg] Dayami Roe Work Phone: [facility] Work Phone: 01-22-2022 08:51-0400 Body height 170.18 cm Dayami Roe Work Phone: [facility] Work Phone: 01-22-2022 08:51-0400 Body mass index (BMI) [Ratio] 37.29 kg/m2 Dayami Roe Work Phone: [facility] Work Phone: 01-22-2022 08:51-0400 Body surface area Derived from formula 2.18 m2 Dayami Roe Work Phone: [employer] Work Phone: 01-22-2022 08:51-0400 Body weight 107.98 kg Dayami Roe Work Phone: [employer] Work Phone: 01-22-2022 08:51-0400 Diastolic blood pressure 68 mm[Hg] Dayami Roe Work Phone: [employer] Work Phone: 01-22-2022 08:51-0400 Heart rate 97 /min Dayami Roe Work Phone: [employer] [facility] Work Phone: 01-22-2022 08:51-0400 SaO2% (BldA) [Mass fraction] 94 % Dayami Roe Work Phone: [facility] Work Phone: 01-22-2022 08:51-0400 Systolic blood pressure 140 mm[Hg] Dayami Roe Work Phone: [employer] Work Phone: 08-08-2021 15:13-0500 Body height 170.18 cm Dayami Roe Work Phone: [employer] Work Phone: 08-08-2021 15:13-0500 Body mass index (BMI) [Ratio] 37.31 kg/m2 Dayami Roe Work Phone: [employer] Work Phone: 08-08-2021 15:13-0500 Body surface area Derived from formula 2.18 m2 Dayami Roe Work Phone: [employer] Work Phone: 08-08-2021 15:13-0500 Body temperature 96.8 [degF] Dayami Roe Work Phone: [employer] Work Phone: 08-08-2021 15:13-0500 Body weight 108.04 kg Dayami Roe Work Phone: [employer] [facility] Work Phone: 08-08-2021 15:13-0500 Diastolic blood pressure 68 mm[Hg] Dayami Roe Work Phone: [employer] [facility] Work Phone: 08-08-2021 15:13-0500 Heart rate 75 /min Dayami Roe Work Phone: [employer] [facility] Work Phone: 08-08-2021 15:13-0500 SaO2% (BldA) [Mass fraction] 95 % Dayami Roe Work Phone: [employer] [facility] Work Phone: 08-08-2021 15:13-0500 Systolic blood pressure 134 mm[Hg] Dayami Roe Work Phone: [employer] [facility] Work Phone: 07-25-2021 10:05-0500 Body height 170.18 cm Dayami Roe Work Phone: [employer] [facility] Work Phone: 07-25-2021 10:05-0500 Body mass index (BMI) [Ratio] 37.05 kg/m2 Dayami Roe Work Phone: [facility] Work Phone: 07-25-2021 10:05-0500 Body surface area Derived from formula 2.17 m2 Dayami Roe Work Phone: [facility] Work Phone: 07-25-2021 10:05-0500 Body temperature 96.2 [degF] Dayami Roe Work Phone: [facility] Work Phone: 07-25-2021 10:05-0500 Body weight 107.3 kg Dayami Roe Work Phone: [facility] Work Phone: 07-25-2021 10:05-0500 Diastolic blood pressure 76 mm[Hg] Dayami Roe Work Phone: [facility] Work Phone: 07-25-2021 10:05-0500 Heart rate 94 /min Dayami Roe Work Phone: [facility] Work Phone: 07-25-2021 10:05-0500 SaO2% (BldA) [Mass fraction] 95 % Dayami Roe Work Phone: [facility] Work Phone: 07-25-2021 10:05-0500 Systolic blood pressure 140 mm[Hg] Dayami Roe Work Phone: [facility] Work Phone: 12-26-2020 08:55-0400 Body height 170.18 cm Dayami Roe Work Phone: [facility] Work Phone: 12-26-2020 08:55-0400 Body mass index (BMI) [Ratio] 35.74 kg/m2 Dayami Roe Work Phone: [employer] [facility] Work Phone: 12-26-2020 08:55-0400 Body surface area Derived from formula 2.14 m2 Dayami Roe Work Phone: [employer] [facility] Work Phone: 12-26-2020 08:55-0400 Body temperature 97.1 [degF] Dayami Roe Work Phone: [employer] [facility] Work Phone: 12-26-2020 08:55-0400 Body weight 103.51 kg Dayami Roe Work Phone: [employer] [facility] Work Phone: 12-26-2020 08:55-0400 Diastolic blood pressure 64 mm[Hg] Dayami Roe Work Phone: [employer] [facility] Work Phone: 12-26-2020 08:55-0400 Heart rate 84 /min Dayami Roe Work Phone: [employer] [facility] Work Phone: 12-26-2020 08:55-0400 SaO2% (BldA) [Mass fraction] 95 % Dayami Roe Work Phone: [employer] [facility] Work Phone: 12-26-2020 08:55-0400 Systolic blood pressure 130 mm[Hg] Dayami Roe Work Phone: [employer] [facility] Work Phone: Encounters Encounter Date Encounter Type Care Provider Facility Start: 01-09-2025 Evaluation and management of inpatient Dr. Srinivasan Baker MD -Intensive Care Unit Work Phone: Start: 01-09-2025 End: 01-09-2025 Follow-up encounter Dayami Puri MD Work Phone: [facility] Comment on above: Results Start: 01-09-2025 End: 01-09-2025 Patient encounter procedure Dayami Puri MD Work Phone: [facility] Comment on above: Nausea and vomiting, unspecified vomiting type (Primary Dx); Diarrhea, unspecified type; SOB (shortness of breath); Productive cough; Hypokalemia; Hyponatremia; Tachycardia; Dehydration; 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); Anemia due to antineoplastic chemotherapy; Pallor; Controlled type 2 diabetes mellitus without complication, with long-term current use of insulin (HCC); Essential hypertension Start: 01-02-2025 End: 01-02-2025 Telephone encounter Dayami Puri MD Work Phone: [facility] Comment on above: Orders Start: 12-21-2024 End: 12-22-2024 Telephone encounter Jocelin Beach reconciliation clerk/Oncology Comment on above: It Quality Analyst - O ther (ED Follow-up ) Start: 12-20-2024 End: 12-21-2024 Telephone encounter Aarti Bar DO Work Phone: Hematology/Oncology Comment on above: Patient Update Start: 12-20-2024 End: 12-20-2024 Emergency department patient visit DAYAMI PURI Facility:[facility] Start: 12-19-2024 End: 12-19-2024 Telephone encounter Jackie Noyola RN Work Phone: Hematology/Oncology Comment on above: Care Coordination (F ollow up Note ) Start: 12-16-2024 End: 12-16-2024 Telephone encounter Jackie Noyola RN Work Phone: Hematology/Oncology Comment on above: Care Coordination (F ollow up Note) Start: 12-15-2024 End: 12-15-2024 Telephone encounter Aarti Bar DO Work Phone: Hematology/Oncology Comment on above: Care Coordination (D iarrhea/Nausea) Start: 12-15-2024 End: 12-15-2024 ambulatory Treatment Rm 15 [facility] Work Phone: Hematology/Oncology Comment on above: Cancer of cecum (HCC ) (Primary Dx); 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); Iron deficiency anemia due to chronic blood loss; Iron malabsorption (HCC); 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); History of iron deficiency; Anemia due to vitamin B12 deficiency, unspecified B12 deficiency type Start: 12-07-2024 End: 12-07-2024 ambulatory Lab/Port [facility] Work Phone: Hematology/Oncology Comment on above: Cancer of cecum (HCC ) (Primary Dx); 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); 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) Start: 12-06-2024 End: 12-06-2024 Telephone encounter Jocelin Beach RN Hematology/Oncology Comment on above: It Quality Analyst - O ther (C1D1 Post Treatment Call ([facility]) ) Start: 12-05-2024 End: 12-05-2024 Telephone encounter Aarti Bar DO Work Phone: Hematology/Oncology Comment on above: Results Start: 12-05-2024 End: 12-05-2024 ambulatory Treatment Rm 2 [facility] Work Phone: Hematology/Oncology Comment on above: Cancer of cecum (HCC ) (Primary Dx); 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); 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); Anemia due to vitamin B12 deficiency, unspecified B12 deficiency type; History of iron deficiency; Anemia due to antineoplastic chemotherapy Start: 11-30-2024 End: 11-30-2024 ambulatory Treatment Rm 9 [facility] Work Phone: Hematology/Oncology Comment on above: Cancer of cecum (HCC ); 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); 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); Anemia due to vitamin B12 deficiency, unspecified B12 deficiency type; History of iron deficiency Start: 11-24-2024 End: 11-24-[address] Aarti Bar DO -Medical Out Work Phone: Start: 11-24-2024 End: 11-24-[address] Chaitanya Roe MD Work Phone: [facility] Work Phone: Start: 11-23-2024 End: 12-12-2024 Telephone encounter Aarti Bar DO Work Phone: Hematology/Oncology Comment on above: Appointment; [employer] Author[employer]at ion Start: 11-23-2024 End: 11-23-2024 ambulatory Treatment Rm 9 Jose Roberto [facility] Work Phone: Hematology/Oncology Comment on above: Anemia due to vitami n B12 deficiency, unspecified B12 deficiency type (Primary Dx); Cancer of cecum (HCC); 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); 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); History of iron deficiency Start: 11-14-2024 End: 12-12-2024 Refill Dayami Puri MD Work Phone: [facility] Comment on above: Refill Request Appointment Start: 11-09-2024 End: 11-09-2024 Telephone encounter Jocelin Beach reconciliation clerk/Oncology Comment on above: It Quality Analyst - O ther (Change in treatment ) Start: 11-09-2024 End: 11-09-2024 Office outpatient visit 25 minutes Aarti Bar DO Work Phone: Hematology/Oncology Comment on above: Cancer of cecum (HCC ) (Primary Dx); 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); 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); History of anemia due to vitamin B12 deficiency; Anemia due to antineoplastic chemotherapy; History of iron deficiency Start: 11-09-2024 End: 11-09-2024 ambulatory Lab/Port [facility] Work Phone: Hematology/Oncology Comment on above: Cancer of cecum (HCC ) (Primary Dx); 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); 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); Anemia due to vitamin B12 deficiency, unspecified B12 deficiency type; History of iron deficiency Start: 11-07-2024 End: 11-08-2024 Refill Dayami Puri MD Work Phone: [facility] Comment on above: Refill Request Start: 11-02-2024 End: 11-02-2024 Subsequent hospital visit by physician Tiffanie [facility] (I-Stat) Work Phone: Cat Scan Comment on above: Cancer of cecum (HCC ) [C18.0] Start: 11-02-2024 End: 11-02-2024 ambulatory Lab/Port Jose Roberto [facility] Work Phone: Hematology/Oncology Comment on above: Cancer of cecum (HCC ) (Primary Dx) Start: 10-28-2024 End: 10-28-2024 ambulatory Lab/Port Jose Roberto [facility] Work Phone: Hematology/Oncology Comment on above: Cancer of cecum (HCC ) (Primary Dx); 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); 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) Start: 10-26-2024 End: 10-26-2024 ambulatory Treatment Rm 5 Jose Roberto [facility] Work Phone: Hematology/Oncology Comment on above: Metastatic colon can cer to liver (HCC) (Primary Dx); Cancer of cecum (HCC); 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); Anemia due to vitamin B12 deficiency, unspecified B12 deficiency type; History of iron deficiency Start: 10-14-2024 End: 10-14-2024 ambulatory Lab/Port Jose Roberto [facility] Work Phone: Hematology/Oncology Comment on above: Cancer of cecum (HCC ) (Primary Dx); 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); 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) Start: 10-12-2024 End: 10-12-2024 Office outpatient visit 25 minutes Aarti Bar DO Work Phone: Hematology/Oncology Comment on above: Cancer of cecum (HCC ) (Primary Dx); 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); 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); Anemia due to vitamin B12 deficiency, unspecified B12 deficiency type; History of iron deficiency; Anemia due to antineoplastic chemotherapy; Chemotherapy induced diarrhea Start: 10-12-2024 End: 10-12-2024 ambulatory Lab/Port Jose Roberto [facility] Work Phone: Hematology/Oncology Comment on above: Cancer of cecum (HCC ) (Primary Dx); 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); 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); Anemia due to vitamin B12 deficiency, unspecified B12 deficiency type; History of iron deficiency Cancer of cecum (HCC ) (Primary Dx); 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); 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) Start: 09-30-2024 End: 09-30-2024 ambulatory Lab/Port Jose Roberto [facility] Work Phone: Hematology/Oncology Comment on above: Cancer of cecum (HCC ) (Primary Dx); 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); 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) Start: 09-28-2024 End: 09-28-2024 ambulatory Treatment Rm 9 Jose Roberto [facility] Work Phone: Hematology/Oncology Comment on above: Metastatic colon can cer to liver (HCC) (Primary Dx); Cancer of cecum (HCC); 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); Anemia due to vitamin B12 deficiency, unspecified B12 deficiency type; History of iron deficiency Start: 09-23-2024 End: 09-23-2024 Telephone encounter Financial Navigator Jose Roberto Work Phone: Hematology/Oncology Comment on above: Benefits Investigati on Start: 09-19-2024 End: 09-26-2024 Refill Dayami Puri MD Work Phone: [address] [place] [address] Comment on above: Refill Request Start: 09-16-2024 End: 09-16-2024 ambulatory Lab/Port Jose Roberto [facility] Work Phone: Hematology/Oncology Comment on above: Cancer of cecum (HCC ) (Primary Dx); 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); 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) Start: 09-14-2024 End: 09-14-2024 Telephone encounter Amparo WEBB Hematology/Oncology Comment on above: Social Work Services Start: 09-14-2024 End: 09-14-2024 Patient encounter procedure Rhonda Owens Work Phone: Hematology/Oncology Start: 09-14-2024 End: 09-14-2024 ambulatory Lab/Port Jose Roberto [facility] Work Phone: Hematology/Oncology Comment on above: Cancer of cecum (HCC ) (Primary Dx) Metastatic colon can cer to liver (HCC) (Primary Dx); Cancer of cecum (HCC); 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); Anemia due to vitamin B12 deficiency, unspecified B12 deficiency type; History of iron deficiency Cancer of cecum (HCC ) (Primary Dx); Anemia due to vitamin B12 deficiency, unspecified B12 deficiency type; Chemotherapy induced diarrhea Start: 09-12-2024 End: 09-12-2024 Refill Dayami Puri MD Work Phone: [address] [place] [address] Comment on above: Refill Request Start: 09-02-2024 End: 09-02-2024 ambulatory Lab/Port [facility] Work Phone: Hematology/Oncology Comment on above: Cancer of cecum (HCC ) (Primary Dx); 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); 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) Start: 08-31-2024 End: 08-31-2024 ambulatory Treatment Rm 5 [facility] Work Phone: Hematology/Oncology Comment on above: Metastatic colon can cer to liver (HCC) (Primary Dx); Cancer of cecum (HCC); 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); Anemia due to vitamin B12 deficiency, unspecified B12 deficiency type; History of iron deficiency Start: 08-19-2024 End: 08-19-2024 ambulatory Lab/Port [facility] Work Phone: Hematology/Oncology Comment on above: Cancer of cecum (HCC ) (Primary Dx); 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); 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) Start: 08-17-2024 End: 08-17-2024 ambulatory Treatment Rm 9 [facility] Work Phone: Hematology/Oncology Comment on above: Metastatic colon can cer to liver (HCC) (Primary Dx); Cancer of cecum (HCC); 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); Anemia due to vitamin B12 deficiency, unspecified B12 deficiency type; History of iron deficiency Start: 08-17-2024 End: 08-17-2024 Office outpatient visit 25 minutes Aarti Bar DO Work Phone: Hematology/Oncology Comment on above: Cancer of cecum (HCC ) (Primary Dx); 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); 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); History of iron deficiency; Chemotherapy induced diarrhea; History of anemia due to vitamin B12 deficiency; Anemia due to antineoplastic chemotherapy Start: 08-10-2024 End: 08-10-2024 ambulatory Lab/Port Jose Roberto [facility] Work Phone: Hematology/Oncology Comment on above: Cancer of cecum (HCC ) (Primary Dx); 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); 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); Anemia due to vitamin B12 deficiency, unspecified B12 deficiency type; History of iron deficiency Start: 08-10-2024 End: 08-10-2024 Subsequent hospital visit by physician Ct [facility] (I-Stat) Work Phone: Cat Scan Comment on above: Cancer of cecum (HCC ) [C18.0] Start: 08-05-2024 End: 08-05-2024 ambulatory Lab/Port Jose Roberto [facility] Work Phone: Hematology/Oncology Comment on above: Cancer of cecum (HCC ) (Primary Dx); 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); 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) Start: 08-03-2024 End: 08-03-2024 ambulatory Treatment Rm 5 Jose Roberto [facility] Work Phone: Hematology/Oncology Comment on above: Metastatic colon can cer to liver (HCC) (Primary Dx); Cancer of cecum (HCC); 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); Anemia due to vitamin B12 deficiency, unspecified B12 deficiency type; History of iron deficiency Start: 07-25-2024 End: 07-25-2024 ambulatory DAYAMI PURI Facility:[facility] Start: 07-25-2024 End: 07-25-2024 Patient encounter procedure Jannet Brday OD Work Phone: Optometry Comment on above: Type 2 diabetes pipe itus without retinopathy (HCC) (Primary Dx); Combined form of age-related cataract, both eyes; Floaters, bilateral; Hyperopia, bilateral; Regular astigmatism, bilateral; Presbyopia Start: 07-22-2024 End: 07-22-2024 ambulatory Lab/Port [facility] Work Phone: Hematology/Oncology Comment on above: Cancer of cecum (HCC ) (Primary Dx); 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); 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) Start: 07-20-2024 End: 07-20-2024 Office outpatient visit 25 minutes Aarti Bar DO Work Phone: Hematology/Oncology Comment on above: Cancer of cecum (HCC ) (Primary Dx); 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); 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); Anemia due to vitamin B12 deficiency, unspecified B12 deficiency type; History of iron deficiency; Hypokalemia; Hypomagnesemia Start: 07-20-2024 End: 07-20-2024 ambulatory Treatment Rm 10 [facility] [place] Work Phone: Hematology/Oncology Comment on above: Cancer of cecum (HCC ) (Primary Dx); 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); 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) Start: 07-11-2024 End: 07-11-2024 ambulatory DAYAMI PURI Facility:[facility] Start: 07-11-2024 End: 07-11-2024 Patient encounter procedure Dayami Puri MD Work Phone: [facility] Comment on above: Controlled type 2 di abetes mellitus without complication, with long-term current use of insulin (HCC) (Primary Dx); History of COVID-19; Essential hypertension; 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); Anemia due to vitamin B12 deficiency, unspecified B12 deficiency type; Iron deficiency anemia due to chronic blood loss; Class 1 obesity with serious comorbidity and body mass index (BMI) of 33.0 to 33.9 in adult, unspecified obesity type Start: 07-06-2024 End: 07-06-2024 Telephone encounter Aarti Bar DO Work Phone: Hematology/Oncology Start: 07-06-2024 End: 07-06-2024 ambulatory Treatment Rm 5 Jose Roberto [facility] [place] Work Phone: Hematology/Oncology Comment on above: Anemia due to vitami n B12 deficiency, unspecified B12 deficiency type (Primary Dx); Cancer of cecum (HCC); 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); 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); History of iron deficiency Start: 06-30-2024 End: 06-30-2024 Telephone encounter Silva Cash APRN.OPERATIONS PROGRAM MANAGER Work Phone: [facility] Comment on above: Results (Covid/Flu, RSV) Start: 06-28-2024 End: 06-28-2024 ambulatory DAYAMI PURI Facility:[facility] Start: 06-28-2024 End: 06-28-2024 Patient encounter procedure Silva Cash APRN.OPERATIONS PROGRAM MANAGER Work Phone: [facility] Comment on above: Lower respiratory in fection (e.g., bronchitis, pneumonia, pneumonitis, pulmonitis) (Primary Dx); Sore throat Start: 06-23-2024 End: 06-23-2024 ambulatory Lab/Port Jose Roberto [facility] Work Phone: Hematology/Oncology Comment on above: Cancer of cecum (HCC ) (Primary Dx); 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); 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) Start: 06-21-2024 End: 06-21-2024 Patient encounter procedure John Mccray MD Work Phone: Hematology/Oncology Start: 06-21-2024 End: 06-21-2024 ambulatory Lab/Port Jose Roberto [facility] Work Phone: Hematology/Oncology Comment on above: Cancer of cecum (HCC ); 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); 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) Cancer of cecum (HCC ) Cancer of cecum (HCC ) (Primary Dx); 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); 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) Start: 06-15-2024 End: 06-15-2024 Telephone encounter Nury Fonseca RN Mobile Services Start: 06-14-2024 End: 06-14-2024 ambulatory Luisito Hassan APRN.OPERATIONS PROGRAM MANAGER Work Phone: Palliative Medicine Comment on above: Palliative care by s pecialist (Primary Dx); 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); 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) Start: 06-14-2024 End: 06-14-2024 Telemedicine consultation with patient Luisito Hassan APRN.OPERATIONS PROGRAM MANAGER Work Phone: Palliative Medicine Start: 06-10-2024 End: 06-10-2024 ambulatory Lab/Port Jose Roberto [facility] Work Phone: Hematology/Oncology Comment on above: Cancer of cecum (HCC ) (Primary Dx); 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); 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) Start: 06-08-2024 End: 06-08-2024 ambulatory Treatment Rm 7 Jose Roberto [facility] Work Phone: Hematology/Oncology Comment on above: Metastatic colon can cer to liver (HCC) (Primary Dx); Cancer of cecum (HCC); 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); Anemia due to vitamin B12 deficiency, unspecified B12 deficiency type Start: 05-27-2024 End: 05-27-2024 ambulatory Lab/Port Jose Roberto [facility] Work Phone: Hematology/Oncology Comment on above: Cancer of cecum (HCC ) (Primary Dx); 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); 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) Start: 05-25-2024 End: 05-25-2024 ambulatory Treatment Rm 5 Jose Roberto [facility] Work Phone: Hematology/Oncology Comment on above: Cancer of cecum (HCC ) (Primary Dx); 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); 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) Start: 05-24-2024 End: 05-24-2024 Office outpatient visit 25 minutes Aarti Bar DO Work Phone: Hematology/Oncology Comment on above: Cancer of cecum (HCC ) (Primary Dx); 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); 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); Anemia due to vitamin B12 deficiency, unspecified B12 deficiency type; History of iron deficiency; Chemotherapy induced diarrhea Start: 05-24-2024 End: 05-24-2024 ambulatory Lab/Port Jose Roberto [facility] Work Phone: Hematology/Oncology Comment on above: Cancer of cecum (HCC ) (Primary Dx); 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); 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) Start: 05-13-2024 End: 05-13-2024 ambulatory Lab/Port Jose Roberto [facility] Work Phone: Hematology/Oncology Comment on above: Cancer of cecum (HCC ) (Primary Dx); 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); 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) Start: 05-11-2024 End: 05-11-2024 ambulatory Treatment Rm 7 Jose Roberto [facility] Work Phone: Hematology/Oncology Comment on above: Metastatic colon can cer to liver (HCC) (Primary Dx); Cancer of cecum (HCC); 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); Anemia due to vitamin B12 deficiency, unspecified B12 deficiency type Start: 04-29-2024 End: 04-29-2024 ambulatory Lab/Port Jose Roberto [facility] Work Phone: Hematology/Oncology Comment on above: Cancer of cecum (HCC ) (Primary Dx); 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); 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) Start: 04-27-2024 End: 04-27-2024 ambulatory Treatment 7 [facility] Work Phone: Hematology/Oncology Comment on above: Cancer of cecum (HCC ) (Primary Dx); 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); 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) Start: 04-26-2024 End: 04-26-2024 Office outpatient visit 25 minutes Aarti Bar DO Work Phone: Hematology/Oncology Comment on above: Cancer of cecum (HCC ) (Primary Dx); 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); 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); Anemia due to vitamin B12 deficiency, unspecified B12 deficiency type; History of iron deficiency Start: 04-26-2024 End: 04-26-2024 ambulatory Lab/Port Jose Roberto [facility] Work Phone: Hematology/Oncology Comment on above: Cancer of cecum (HCC ); 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); 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) Start: 04-15-2024 End: 04-15-2024 ambulatory Lab/Port Jose Roberto [facility] Work Phone: Hematology/Oncology Comment on above: Cancer of cecum (HCC ) (Primary Dx); 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); 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); Anemia due to vitamin B12 deficiency, unspecified B12 deficiency type Start: 04-13-2024 End: 04-13-2024 ambulatory Treatment Rm 9 Jose Roberto [facility] Work Phone: Hematology/Oncology Comment on above: Cancer of cecum (HCC ) (Primary Dx); 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); 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) Start: 04-12-2024 End: 04-12-2024 Patient encounter procedure Aarti Bar DO Work Phone: Hematology/Oncology Start: 04-12-2024 End: 04-12-2024 ambulatory Lab/Port [facility] Work Phone: Hematology/Oncology Comment on above: Cancer of cecum (HCC ) (Primary Dx); 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); 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); Controlled type 2 diabetes mellitus without complication, with long-term current use of insulin (HCC) Cancer of cecum (HCC ) (Primary Dx); 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); 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); History of iron deficiency; Anemia due to vitamin B12 deficiency, unspecified B12 deficiency type Start: 04-08-2024 End: 04-08-2024 ambulatory Injection Jose Roberto [facility] Work Phone: Hematology/Oncology Comment on above: Anemia due to vitami n B12 deficiency, unspecified B12 deficiency type (Primary Dx); Cancer of cecum (HCC); 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) Start: 04-01-2024 End: 04-01-2024 ambulatory Lab/Port Jose Roberto [facility] Work Phone: Hematology/Oncology Comment on above: Cancer of cecum (HCC ) (Primary Dx); 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); 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) Start: 03-30-2024 End: 03-30-2024 ambulatory Treatment Rm 7 Jose Roberto [facility] Work Phone: Hematology/Oncology Comment on above: Cancer of cecum (HCC ) (Primary Dx); 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); 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); Anemia due to vitamin B12 deficiency, unspecified B12 deficiency type Start: 03-29-2024 End: 03-29-2024 Patient encounter procedure Aarti Bar DO Work Phone: Hematology/Oncology Start: 03-29-2024 End: 03-29-2024 ambulatory Lab/Port Jose Roberto [facility] Work Phone: Hematology/Oncology Comment on above: Cancer of cecum (HCC ); 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); 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) Cancer of cecum (HCC ) (Primary Dx); 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); 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); History of iron deficiency Start: 03-23-2024 End: 03-23-2024 ambulatory Injection Jose Roberto [facility] Work Phone: Hematology/Oncology Comment on above: Anemia due to vitami n B12 deficiency, unspecified B12 deficiency type (Primary Dx); Cancer of cecum (HCC); 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) Start: 03-21-2024 End: 03-21-2024 ambulatory Lab/Port Jose Roberto [facility] Work Phone: Hematology/Oncology Comment on above: Cancer of cecum (HCC ) (Primary Dx) Start: 03-21-2024 End: 03-21-2024 Subsequent hospital visit by physician Ct Prep [facility] Cat Scan Comment on above: Cancer of cecum (HCC ) [C18.0] Start: 03-16-2024 End: 03-16-2024 Orders Only Rhonda Owens Work Phone: Hematology/Oncology Comment on above: Anemia due to vitami n B12 deficiency, unspecified B12 deficiency type (Primary Dx) Cancer of cecum (HCC ) (Primary Dx); 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); 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); Anemia due to vitamin B12 deficiency, unspecified B12 deficiency type Start: 03-15-2024 End: 03-15-2024 Telephone encounter Rhonda Owens Work Phone: Hematology/Oncology Comment on above: Results Start: 03-15-2024 End: 03-15-2024 Patient encounter procedure Rhonda Owens Work Phone: Hematology/Oncology Start: 03-15-2024 End: 03-15-2024 ambulatory Lab/Port Jose Roberto [facility] Work Phone: Hematology/Oncology Comment on above: Cancer of cecum (HCC ) (Primary Dx); 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); 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); Iron deficiency anemia due to chronic blood loss Cancer of cecum (HCC ) (Primary Dx) Start: 03-08-2024 End: 03-08-2024 Telephone encounter Dayami Puri MD Work Phone: Mobile Services Comment on above: [id number]- pall med; Ini tial Consult Start: 03-08-2024 End: 03-08-2024 Patient encounter procedure Dayami Puri MD Work Phone: [facility] Comment on above: Encounter for medica l examination to establish care (Primary Dx); 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); 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); Controlled type 2 diabetes mellitus without complication, with long-term current use of insulin (HCC); Iron deficiency anemia due to chronic blood loss; BRYCE on CPAP; Essential hypertension; Encounter for immunization Start: 03-08-2024 End: 03-08-2024 Patient encounter status Dayami Puri MD Work Phone: [facility] Work Phone: Start: 03-08-2024 End: 03-08-2024 ambulatory DAYAMI PURI Facility:[facility] Start: 03-08-2024 Encounter for genera l adult medical examination without abnormal findings DAYAMI PURI [facility] Start: 03-04-2024 End: 03-04-2024 ambulatory Lab/Port Jose Roberto [facility] Work Phone: Hematology/Oncology Comment on above: Cancer of cecum (HCC ) (Primary Dx); 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); 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) Start: 03-02-2024 End: 03-02-2024 ambulatory Treatment Rm 5 Jose Roberto [facility] Work Phone: Hematology/Oncology Comment on above: Cancer of cecum (HCC ) (Primary Dx); 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); 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) Start: 03-01-2024 End: 03-01-2024 Patient encounter procedure Rhonda Owens Work Phone: Hematology/Oncology Start: 03-01-2024 End: 03-01-2024 ambulatory Lab/Port [facility] Work Phone: Hematology/Oncology Comment on above: Cancer of cecum (HCC ); 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); 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) Cancer of cecum (HCC ) (Primary Dx); 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); Malignant neoplasm of colon, unspecified part of colon (HCC) Start: 02-19-2024 End: 02-19-2024 ambulatory Lab/Port [facility] Work Phone: Hematology/Oncology Comment on above: Cancer of cecum (HCC ) (Primary Dx); 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); 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) Start: 02-17-2024 End: 02-17-2024 ambulatory Treatment Rm 4 Jose Roberto [facility] Work Phone: Hematology/Oncology Comment on above: Colon cancer metasta sized to lung (HCC) (Primary Dx); Cancer of cecum (HCC); 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) Start: 02-16-2024 End: 02-16-2024 Patient encounter procedure Rhonda Owens Work Phone: Hematology/Oncology Start: 02-16-2024 End: 02-16-2024 ambulatory Lab/Port Jose Roberto [facility] Work Phone: Hematology/Oncology Comment on above: Cancer of cecum (HCC ); 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); 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) Colon cancer metasta sized to lung (HCC) (Primary Dx); Cancer of cecum (HCC); Iron deficiency anemia due to chronic blood loss Start: 02-04-2024 End: 03-22-2024 Telephone encounter Aarti Bar DO Work Phone: Hematology/Oncology Comment on above: Results Start: 02-02-2024 End: 02-02-2024 Patient encounter procedure Aarti Bar DO Work Phone: Hematology/Oncology Start: 02-02-2024 End: 02-02-2024 ambulatory Lab/Port Jose Roberto [facility] Work Phone: Hematology/Oncology Comment on above: Cancer of cecum (HCC ); 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); 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) Cancer of cecum (HCC ) (Primary Dx); 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); Diarrhea of presumed infectious origin; Acute cystitis without hematuria; Dehydration Cancer of cecum (HCC ) (Primary Dx); 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); 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); Acute cystitis without hematuria Start: 02-01-2024 End: 02-01-2024 Emergency department patient visit Chaitanya Avoca Facility:[facility] Start: 01-29-2024 Telephone encounter Aarti vincent DO Work Phone: Hematology/Oncology Comment on above: Patient Update It Quality Analyst - O ther (Symptoms ) Start: 01-22-2024 End: 01-22-2024 ambulatory Lab/Port Jose Roberto [facility] Work Phone: Hematology/Oncology Comment on above: Cancer of cecum (HCC ) (Primary Dx); 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); 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) Start: 01-20-2024 End: 01-20-2024 ambulatory Treatment Rm 4 Jose Roberto [facility] Work Phone: Hematology/Oncology Comment on above: Cancer of cecum (HCC ) (Primary Dx); 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); 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) Start: 01-19-2024 End: 01-19-2024 Patient encounter procedure Aarti Bar DO Work Phone: Hematology/Oncology Start: 01-19-2024 End: 01-19-2024 ambulatory Lab/Port Jose Roberto [facility] Work Phone: Hematology/Oncology Comment on above: Cancer of cecum (HCC ); 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); 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) Cancer of cecum (HCC ) (Primary Dx); 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); 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); Iron deficiency anemia due to chronic blood loss Start: 01-19-2024 Telephone encounter Aarti vincent DO Work Phone: Hematology/Oncology Comment on above: AVS 01/19/24 Start: 01-11-2024 Telephone encounter Jocelin Beach RN He matology/Oncology Comment on above: It Quality Analyst - O ther (C1D1 Post Treatment Call (Folfox+Avastin)) Start: 01-08-2024 End: 01-08-2024 ambulatory Lab/Port Jose Roberto [facility] Work Phone: Hematology/Oncology Comment on above: Cancer of cecum (HCC ) (Primary Dx); 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); 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) Start: 01-06-2024 End: 01-06-2024 ambulatory Treatment Rm 7 [facility] Work Phone: Hematology/Oncology Comment on above: Cancer of cecum (HCC ) (Primary Dx); 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); 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) Start: 01-01-2024 End: 01-01-2024 Assay of hemosiderin, quant Dayami Roe MD Work Phone: [facility] Work Phone: Start: 01-01-2024 End: 01-01-2024 Office outpatient visit 25 minutes Dayami Roe MD Work Phone: [facility] Comment on above: Type 2 diabetes pipe itus without complication, without long- term current use of insulin (Multi) (Primary Dx); Mixed hyperlipidemia; Hypertension, essential, benign; Gastroesophageal reflux disease without esophagitis; Neurogenic claudication due to lumbar spinal stenosis; Arthritis of lumbosacral spine; Obstructive sleep apnea syndrome; Routine general medical examination at health care facility; Obesity, morbid (Multi); Primary insomnia; 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 (Multi) Start: 01-01-2024 End: 01-01-2024 ambulatory [facility] Ambulatory Start: 12-30-2023 End: 12-30-2023 ambulatory Treatment 13 [facility] [place] Work Phone: Hematology/Oncology Comment on above: Iron malabsorption ( Primary Dx); Iron deficiency anemia due to chronic blood loss; Cancer of cecum (HCC); 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); 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) Start: 12-29-2023 End: 12-29-2023 ambulatory [facility] Start: 12-25-2023 End: 12-25-2023 ambulatory Treatment 13 [facility] [place] Work Phone: Hematology/Oncology Comment on above: Iron deficiency anem ia due to chronic blood loss (Primary Dx); Iron malabsorption; Cancer of cecum (HCC); 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); 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) Start: 12-25-2023 Telephone encounter Amparo WEBB Hematology/Oncology Comment on above: Social Work Services Start: 12-25-2023 End: 12-25-2023 ambulatory [facility] Start: 12-23-2023 End: 12-23-2023 ambulatory Treatment [address] [place] Work Phone: Hematology/Oncology Comment on above: Iron malabsorption ( Primary Dx); Iron deficiency anemia due to chronic blood loss; Cancer of cecum (HCC); 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); 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) Start: 12-21-2023 End: 12-21-2023 ambulatory Treatment [address] [place] Work Phone: Hematology/Oncology Comment on above: Iron malabsorption ( Primary Dx); Iron deficiency anemia due to chronic blood loss; Cancer of cecum (HCC); 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); 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) Start: 12-18-2023 Telephone encounter Jackie moss RN Work Phone: Hematology/Oncology Comment on above: Care Coordination (R x needed) Start: 12-18-2023 End: 12-18-2023 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 [facility] Work Phone: Hematology/Oncology Comment on above: Encounter for educat ion (Primary Dx); 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) Start: 12-15-2023 End: 12-15-2023 ambulatory Lab/Port Jose Roberto [facility] Work Phone: Hematology/Oncology Comment on above: Cancer of cecum (HCC ); 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); 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) Cancer of cecum (HCC ) (Primary Dx); 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); 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) Start: 12-15-2023 End: 12-15-2023 Patient encounter procedure Aarti Bar DO Work Phone: Hematology/Oncology Start: 12-15-2023 Telephone encounter Aarti vincent DO Work Phone: Hematology/Oncology Comment on above: AVS 12/15/23/CHEMO ST ART Start: 12-02-2023 ambulatory [facility] [[email or web address]BLAYNE JAMIL REINA [facility] Ambulatory Start: 11-30-2023 End: 11-30-2023 Office outpatient visit 25 minutes [facility] DO Work Phone: [facility] Comment on above: Adenocarcinoma of co danyell (HCC) (Primary Dx); Simple chronic bronchitis (HCC); Morbid obesity due to excess calories (HCC) Start: 11-30-2023 End: 11-30-2023 ambulatory [place] MELISSA [facility] Ambulatory Start: 11-25-2023 End: 11-25-2023 ambulatory [facility] Start: 11-19-2023 Telephone encounter Aarti vincent DO Work Phone: Hematology/Oncology Comment on above: New Patient Start: 11-13-2023 End: 11-13-2023 Office outpatient visit 25 minutes Dayami Roe MD Work Phone: [facility] Comment on above: 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 (Multi) (Primary Dx); Type 2 diabetes mellitus without complication, without long-term current use of insulin (Multi); Mixed hyperlipidemia; Gastroesophageal reflux disease without esophagitis; Hypertension, essential, benign; Anemia, unspecified type; Hypoxia; Obstructive sleep apnea syndrome Start: 11-13-2023 End: 11-13-2023 ambulatory [facility] Ambulatory Start: 11-11-2023 End: 11-11-2023 Encounter for other specified special examinations ALLYSSA [facility] Start: 11-11-2023 End: 11-15-2023 ambulatory [facility] Start: 11-11-2023 End: 11-11-2023 Office outpatient new 60 minutes Hayden Balderas DO Work Phone: [facility] Comment on above: Adenocarcinoma of co danyell (HCC) (Primary Dx) Start: 11-11-2023 End: 11-11-2023 ambulatory HAYDEN LIZ [facility] Amb[facility] Start: 11-09-2023 End: 11-09-2023 Postop follow up visit related to original px Austen Hall MD Work Phone: [facility] Comment on above: Cecal cancer (HCC) ( Primary Dx); 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) Start: 11-09-2023 End: 11-09-2023 ambulatory AUSTEN HALL [facility]ory Start: 10-28-2023 Orders Only Ros valladares RN [facility] Comment on above: Adenocarcinoma of co danyell (HCC) (Primary Dx) Start: 10-21-2023 End: 10-21-2023 Evaluation and management of inpatient Melissa Pereira MD Work Phone: [facility] Periop Start: 10-19-2023 Critical care ill/injured patient init 30-74 min Garrick Caruso MD Work Phone: [facility] Start: 10-19-2023 End: 10-29-2023 Evaluation and management of inpatient Garrick Caruso MD Work Phone: [facility] Intermediate Start: 09-28-2023 End: 09-28-2023 Office outpatient visit 15 minutes Dayami Roe MD Work Phone: [facility] Comment on above: Hypertension, essent ial, benign Start: 09-28-2023 End: 09-28-2023 ambulatory [facility] Ambulatory Start: 09-26-2023 End: 09-26-2023 Emergency department patient visit [email or web address] Start: 07-03-2023 End: 07-03-2023 Assay of hemosiderin, quant Dayami Roe MD Work Phone: [facility] Work Phone: Start: 07-03-2023 End: 07-03-2023 Patient encounter procedure Dayami Roe MD Work Phone: [facility] Comment on above: Routine general medi tanisha examination at health care facility (Primary Dx); Mixed hyperlipidemia; Hypertension, essential, benign; Type 2 diabetes mellitus without complication, without long-term current use of insulin ([facility]); Gastroesophageal reflux disease without esophagitis; Neurogenic claudication due to lumbar spinal stenosis; Arthritis of lumbosacral spine; Obstructive sleep apnea syndrome; Obesity, morbid ([facility]); Primary insomnia Start: 07-03-2023 End: 07-03-2023 ambulatory [facility] Ambulatory Start: 07-03-2023 End: 07-03-2023 Encounter for general adult medical examination without abnormal findings [facility] Ambulatory Start: 06-26-2023 End: 06-26-2023 ambulatory [facility] Start: 05-18-2023 End: 05-18-2023 Office outpatient visit 25 minutes David Argueta MD Work Phone: [facility] Comment on above: Dyspnea, unspecified type (Primary Dx); Coronary artery disease involving [place] coronary artery of [place] heart without angina pectoris; Fatigue, unspecified type Start: 05-18-2023 End: 05-18-2023 ambulatory DAVID ARGUETA [facility] Start: 03-26-2023 End: 03-26-2023 Emergency department patient visit DAYAMI ROE [facility] Start: 12-31-2022 End: 12-31-2022 Office outpatient visit 25 minutes Dayami Roe MD Work Phone: [facility] Comment on above: Type 2 diabetes pipe itus without complication, without long- term current use of insulin ([facility]) (Primary Dx); Mixed hyperlipidemia; Hypertension, essential, benign; Gastroesophageal reflux disease without esophagitis; Neurogenic claudication due to lumbar spinal stenosis; Arthritis of lumbosacral spine; Obstructive sleep apnea syndrome; Prostate cancer screening; Primary insomnia; Obesity, morbid ([facility]) Start: 08-28-2022 AUDIT Dayami Roe Work Phone: [facility] Work Phone: Start: 08-05-2022 AUDIT Dayami Roe Work Phone: [facility] [[email or web address] [employer] [facility] Work Phone: Start: 07-03-2022 Adv care pln tlkd & alt dcsn maker docd Dayami Roe Work Phone: -[facility] Work Phone: Start: 07-03-[address] Chaitanya Roe Facility:[id number] Start: 06-27-2022 Chart Update Dayami Roe Work Phone: -[facility] [facility] Work Phone: Start: 06-26-2022 Chart Update Dayami Roe Work Phone: -[facility] [employer] [facility] Work Phone: Start: 05-29-2022 AUDIT Dayami Roe Work Phone: [facility] Work Phone: Start: 05-27-2022 End: 05-27-2022 Office outpatient visit 10 minutes Dipti Hoffman MD Work Phone: [facility] Comment on above: Dyspnea, unspecified type (Primary Dx); Coronary artery disease involving [place] coronary artery of [place] heart without angina pectoris Start: 04-27-2022 Chart Update Dayami Roe Work Phone: [facility] Work Phone: Start: 04-24-2022 Patient encounter procedure Dayami Roe Work Phone: [facility] Work Phone: Start: 04-24-2022 ambulatory Ms. AMBROSIO SHRESTHA BAILEY Facility:[id number] Start: 04-22-[address] Tamara Flynn todd Shama Facility:[id number] Start: 04-15-2022 AUDIT Dayami Roe Work Phone: [facility] Work Phone: Start: 04-14-2022 Patient encounter procedure Dayami Roe Work Phone: [facility] Work Phone: Start: 04-14-[address] Tamara Flynn [facility] Facility:[id number] Start: 04-01-2022 Office outpatient vi sit 15 minutes Dayami Roe Work Phone: [facility] Work Phone: Start: 04-01-[address] Chaitanya Roe Facility:[id number] Start: 03-27-2022 Chart Update Dayami Roe Work Phone: [facility] Work Phone: Start: 03-26-[address] CHAITANYA ROE Facility:[id number] Start: 03-25-2022 Office outpatient vi sit 15 minutes Dayami Roe Work Phone: [facility] Work Phone: Start: 03-25-[address] Chaitanya Roe Facility:[id number] Start: 03-17-2022 Chart Update Dayami Roe Work Phone: [facility] Work Phone: Start: 03-13-[address] CHAITANYA ROE Facility:[id number] Start: 03-07-2022 Chart Update Dayami Roe Work Phone: [facility] Work Phone: Start: 03-07-[address] CHAITANYA ROE Facility:[id number] Start: 03-04-2022 AUDIT Dayami Roe Work Phone: [facility] Work Phone: Start: 02-26-[address] CHAITANYA ROE Facility:[id number] Start: 02-21-2022 Office outpatient vi sit 15 minutes Dayami Roe Work Phone: [facility] Work Phone: Start: 02-21-[address] Chaitanya Roe Facility:[id number] Start: 02-10-2022 Admission to [facility] Dipti Hoffman MD Work Phone: [facility] Start: 01-28-2022 Orders Only Hayden Russell RN [facility] Start: 01-22-[address] Chaitanya Roe Facility:[id number] Start: 01-22-2022 Office outpatient vi sit 25 minutes Dayami Roe Work Phone: [facility] Work Phone: Start: 01-16-2022 Chart Update Dayami Roe Work Phone: [facility] Work Phone: Start: 01-15-2022 Chart Update Dayami Roe Work Phone: [facility] Work Phone: Start: 01-15-2022 Transcribe Orders Dameon Rai DO Work Phone: [facility] Comment on above: Shortness of breath (Primary Dx); Dyspnea, unspecified type Start: 08-08-2021 Office outpatient vi sit 15 minutes Dayami Roe Work Phone: [facility] Work Phone: Start: 07-25-2021 Patient encounter procedure Dayami Roe Work Phone: [facility] Work Phone: Start: 06-12-2021 Chart Update Dayami Roe Work Phone: [facility] Work Phone: Start: 05-02-2021 Telephone encounter Chaitanya Roe Work Phone: [facility] [place] [id number] Work Phone: Start: 12-26-2020 Patient encounter procedure Dayami Roe Work Phone: [facility] Work Phone: Start: 12-24-2020 Chart Update Getachewjessica Linsey Roe Work Phone: [facility] Work Phone: Start: 08-04-2020 End: 08-04-2020 Orders Only Bhavna Ailson Reyes Work Phone: [facility] [place] Start: 08-20-2017 End: 08-20-2017 Emergency department patient visit Bhavna Gallardo Facility:[place] Patient encounter procedure Dayami Roe Work Phone: [facility] Work Phone: Procedures Date Procedure Procedure Detail Performing Clinician Start: 01-09-[address] Sarthak Roe MD Work Phone: Start: 01-09-2025 Measurement of occult blood in stool specimen using immunoassay Dr. Chaitanya Roe MD Work Phone: Start: 01-09-2025 SARS-CoV-2, Influenza & RSV (PCR) Dr. Wiliam Roe MD Work Phone: Start: 12-15-2024 Blood count complete auto&auto difrntl wbc Aarti Andres Masci DO Work Phone: Start: 12-05-2024 Urnls dip stick/tablet rgnt auto w/o microscopy [facility] Provider Start: 12-05-2024 Blood count complete auto&auto difrntl wbc Aarti Andres Masci DO Work Phone: Start: 11-30-2024 Urnls dip stick/tablet rgnt auto w/o microscopy [facility] Provider Start: 11-30-2024 Blood count complete auto&auto difrntl wbc Aarti Andres Masci DO Work Phone: Start: 11-23-2024 End: 11-23-2024 Blood count complete auto&auto difrntl wbc Aarti Andres Masci DO Work Phone: Start: 11-09-2024 Urnls dip stick/tablet rgnt auto w/o microscopy [facility] Provider Start: 11-09-2024 Blood count complete auto&auto difrntl wbc Aarti Salasi DO Work Phone: Start: 10-26-2024 Urnls dip stick/tablet rgnt auto w/o microscopy [facility] Provider Start: 10-26-2024 Blood count complete auto&auto difrntl wbc Aarti Andres Masci DO Work Phone: Start: 10-12-2024 Blood count complete auto&auto difrntl wbc Aarti Andres Masci DO Work Phone: Start: 09-28-2024 Urnls dip stick/tablet rgnt auto w/o microscopy [facility] Provider Start: 09-28-2024 Blood count complete auto&auto difrntl wbc Aarti Andres Masci DO Work Phone: Start: 09-14-2024 Blood count complete auto&auto difrntl wbc Aarti Andres Masci DO Work Phone: Start: 08-31-2024 Urnls dip stick/tablet rgnt auto w/o microscopy [facility] Provider Start: 08-31-2024 Blood count complete auto&auto difrntl wbc Aarti Andres Masci DO Work Phone: Start: 08-17-2024 Blood count complete auto&auto difrntl wbc Aarti Andres Masci DO Work Phone: Start: 08-10-2024 Urnls dip stick/tablet rgnt auto w/o microscopy [facility] Provider Start: 08-10-2024 Blood count complete auto&auto difrntl wbc Aarti Andres Masci DO Work Phone: Start: 08-03-2024 Blood count complete auto&auto difrntl wbc Aarti Andres Masci DO Work Phone: Start: 07-06-2024 Urnls dip stick/tablet rgnt auto w/o microscopy [facility] Provider Start: 07-06-2024 Blood count complete auto&auto difrntl wbc Aarti Andres Masci DO Work Phone: Start: 06-28-2024 STREP A MOLECULAR (POC) Silva Cash APRN.OPERATIONS PROGRAM MANAGER Work Phone: Start: 06-21-2024 Blood count complete auto&auto difrntl wbc Aarti Andres Masci DO Work Phone: Start: 06-08-2024 Blood count complete auto&auto difrntl wbc Aarti Andres Masci DO Work Phone: Start: 05-25-2024 Urnls dip stick/tablet rgnt auto w/o microscopy [facility] Provider Start: 05-24-2024 Blood count complete auto&auto difrntl wbc Aarti Andres Masci DO Work Phone: Start: 05-11-2024 Blood count complete auto&auto difrntl wbc Aarti Andres Masci DO Work Phone: Start: 04-27-2024 Urnls dip stick/tablet rgnt auto w/o microscopy [facility] Provider Start: 04-26-2024 Blood count complete auto&auto difrntl wbc Aarti Andres Masci DO Work Phone: Start: 04-12-2024 Blood count complete auto&auto difrntl wbc Aarti Andres Masci DO Work Phone: Start: 03-29-2024 Blood count complete auto&auto difrntl wbc Aarti Andres Masci DO Work Phone: Start: 03-15-2024 CBC + DIFF Aarti Andres Masci DO Work Phone: Start: 03-15-2024 Comprehensive metabolic panel Aarti Andres Mas ci DO Work Phone: Start: 03-01-2024 Blood count complete auto&auto difrntl wbc Aarti Andres Masci DO Work Phone: Start: 02-16-2024 Blood count complete auto&auto difrntl wbc Aarti Andres Masci DO Work Phone: Start: 02-02-2024 Blood count complete auto&auto difrntl wbc Aarti Andres Masci DO Work Phone: Start: 01-19-2024 Blood count complete auto&auto difrntl wbc Aarti Andres Masci DO Work Phone: Start: 01-06-2024 Blood count complete auto&auto difrntl wbc Ileana Xiao MEDICAL REPRESENTATIVEJohnathanOPERATIONS PROGRAM MANAGER Work Phone: Start: 12-25-2023 Lipid 1996 panel - Serum or Plasma Sarthak Roe MD Work Phone: Start: 12-15-2023 Blood count complete auto&auto difrntl wbc Aarti Andres Masci DO Work Phone: Start: 12-15-2023 HEP REMOTE PANEL BL Aarti Andres Masci DO Work Phone: Start: 12-15-2023 Hepatitis c antibody Aarti Andres Masci DO Work Phone: Start: 12-15-2023 Iaad ia hepatitis b surface antigen Aarti Andres Masci DO Work Phone: Start: 11-13-2023 CBC W Auto Differential panel - Blood DAYAMI ROE Start: 11-13-2023 Cyanocobalamin vitamin b-12 DAYAMI LENTZD Start: 11-13-2023 Ferritin [Mass/volume] in Serum or Plasma GETACHEWBLAYNEJULIA ROE Start: 11-13-2023 IRON AND TIBC GETACHEWJESSICA LENTZD Start: 11-13-2023 RETICULOCYTES GETACHEWJESSICA LENTZD Start: 10-29-2023 Glucose measurement Generic [facility] Work Phone: Start: 10-29-2023 EVALUATE FOR HOME O2 Arias Franco DO Work Phone: Start: 10-29-2023 Carcinoembryonic antigen cea Lencho Rodriguez MD Work Phone: Start: 10-29-2023 Glucose measurement [facility] Work Phone: Start: 10-29-2023 Basic metabolic panel calcium total Venessa Nicolas MD Work Phone: Start: 10-28-2023 Glucose measurement [facility] Work Phone: Start: 10-28-2023 Glucose measurement [facility] Work Phone: Start: 10-28-2023 Glucose measurement [facility] Work Phone: Start: 10-28-2023 Glucose measurement [facility] Work Phone: Start: 10-28-2023 Basic metabolic panel calcium total Venessa Nicolas MD Work Phone: Start: 10-27-2023 Glucose measurement [facility] Work Phone: Start: 10-27-2023 Glucose measurement [facility] Work Phone: Start: 10-27-2023 Glucose measurement [facility] Work Phone: Start: 10-27-2023 Glucose measurement [facility] Work Phone: Start: 10-27-2023 Basic metabolic panel calcium total Venessa Nicolas MD Work Phone: Start: 10-26-2023 Blood occult fecal hgb deter ia qual feces 1-3 Enriqueta العراقي MD Work Phone: Start: 10-26-2023 Glucose measurement [facility] Work Phone: Start: 10-26-2023 Glucose measurement [facility] Work Phone: Start: 10-26-2023 Glucose measurement [facility] Work Phone: Start: 10-26-2023 Radiologic exam abdomen 1 view Louisa Bogdan Vaca CNP Work Phone: Start: 10-26-2023 Glucose measurement [facility] Work Phone: Start: 10-26-2023 Basic metabolic panel calcium total Venessa Nicolas MD Work Phone: Start: 2023 Glucose measurement [facility] Work Phone: Start: 2023 Glucose measurement [facility] Work Phone: Start: 2023 Glucose measurement [facility] Work Phone: Start: 2023 Glucose measurement [facility] Work Phone: Start: 2023 Basic metabolic panel calcium total Venessa Nicolas MD Work Phone: Start: 10-24-2023 Glucose measurement [facility] Work Phone: Start: 10-24-2023 Glucose measurement [facility] Work Phone: Start: 10-24-2023 Glucose measurement [facility] Work Phone: Start: 10-24-2023 Glucose measurement [facility] Work Phone: Start: 10-24-2023 Basic metabolic panel calcium total Venessa Nicolas MD Work Phone: Start: 10-23-2023 Glucose measurement [facility] Work Phone: Start: 10-23-2023 Glucose measurement [facility] Work Phone: Start: 10-23-2023 Glucose measurement [facility] Work Phone: Start: 10-23-2023 Glucose measurement [facility] Work Phone: Start: 10-23-2023 Basic metabolic panel calcium total Venessa Shaikh Maria Isabel RODRIGUEZ Work Phone: Start: 10-22-2023 Glucose measurement [facility] Work Phone: Start: 10-22-2023 Glucose measurement [facility] Work Phone: Start: 10-22-2023 Glucose measurement [facility] Work Phone: Start: 10-22-2023 Glucose measurement [facility] Work Phone: Start: 10-22-2023 End: 10-22-2023 Blood count complete automated Sherron Browne OPERATIONS PROGRAM MANAGER Work Phone: Start: 10-21-2023 Blood count hematocrit Enriqueta العراقي MD Work Phone: Start: 10-21-2023 Natriuretic peptide Aixa Jennifer Gamez OPERATIONS PROGRAM MANAGER Work Phone: Start: 10-21-2023 Glucose measurement [facility] Work Phone: Start: 10-21-2023 Blood count hematocrit Enriqueta العراقي MD Work Phone: Start: 10-21-2023 Glucose measurement [facility] Work Phone: Start: 10-21-2023 Radiologic exam chest single view Norma Hall MD Work Phone: Start: 10-21-2023 XR and RF Chest PA and Lateral and Views Austen Hall MD Work Phone: Start: 10-21-2023 Level vi surg pathology gross&microscopic exam Austen Hall MD Work Phone: Start: 10-21-2023 AIRWAY ETT Niles Farnsworthkaren GIBBS Work Phone: Start: 10-21-2023 End: 10-21-2023 INSERTION SUBCUTANEOUS PORT Austen Hall MD Work Phone: Start: 10-21-2023 End: 10-21-2023 Laps colectomy prtl w/rmvl terminal ileum Austen Hall MD Work Phone: Start: 10-21-2023 Glucose measurement Generic [facility] Work Phone: Start: 10-21-2023 Glucose measurement Generic [facility] Work Phone: Start: 10-21-2023 Echo tthrc r-t 2d w/wom-mode compl spec&colr d Enriqueta العراقي MD Work Phone: Start: 10-21-2023 Blood count hematocrit Enriqueta العراقي MD Work Phone: Start: 10-20-2023 Blood count hematocrit Enriqueta العراقي MD Work Phone: Start: 10-20-2023 Glucose measurement Generic [facility] Work Phone: Start: 10-20-2023 Comprehensive metabolic panel Lencho Rodriguez MD Work Phone: Start: 10-20-2023 Glucose measurement Generic [facility] Work Phone: Start: 10-20-2023 Blood count hematocrit Enriqueta العراقي MD Work Phone: Start: 10-20-2023 Level iv surg pathology gross&microscopic exam Joe Rojas MD Work Phone: Start: 10-20-2023 End: 10-20-2023 Esophagogastroduodenoscopy Joe Rojas MD Work Phone: Start: 10-20-2023 Endoscopy of esophagus Joe Rojas MD Work Phone: Start: 10-20-2023 Glucose measurement Generic [facility] Work Phone: Start: 10-20-2023 Ct angiography chest w/contrast/noncontrast Venessa Nicolas MD Work Phone: Start: 10-20-2023 Glucose measurement Generic [facility] [place] [facility] Work Phone: Start: 10-20-2023 Blood count hematocrit Enriqueta العراقي MD Work Phone: Start: 10-20-2023 Basic metabolic panel calcium total Enriqueta العراقي MD Work Phone: Start: 10-20-2023 End: 10-20-2023 Colonoscopy Joe Rojas MD Work Phone: Start: 10-19-2023 End: 10-19-2023 Packed RBC preparation Garrick Caruso MD Work Phone: Start: 10-19-2023 End: 10-20-2023 Transfusion of red blood cells Tarik johnson DO Work Phone: Start: 10-19-2023 Glucose measurement Generic [facility] [place] [facility] Work Phone: Start: 10-19-2023 Urnls dip stick/tablet reagent auto microscopy Vero Morales CNP Work Phone: Start: 10-19-2023 Electrocardiogram Garrick Caruso MD Work Phone: Start: 10-19-2023 Blood count hematocrit Enriqueta العراقي MD Work Phone: Start: 10-19-2023 Glucose measurement Enriqueta العراقي MD Work Phone: Start: 10-19-2023 Assay of lactate Enriqueta العراقي MD Work Phone: Start: 10-19-2023 End: 10-19-2023 Transfusion of red blood cells Garrick anand MD Work Phone: Start: 10-19-2023 Hemoglobin glycosylated a1c Enriqueta rice MD Work Phone: Start: 10-19-2023 Blood typing serologic abo Garrick Caruso MD Work Phone: Start: 10-19-2023 Radiologic exam chest 2 views Garrick Caruso MD Work Phone: Start: 10-19-2023 Gases blood ph direct miley xcpt pulse oximitry Garrick Caruso MD Work Phone: Start: 10-19-2023 Basic metabolic panel calcium total Vero Morales OPERATIONS PROGRAM MANAGER Work Phone: Start: 10-19-2023 Blood group typing Garrick Caruso MD Work Phone: Start: 10-19-2023 Influenza virus A and B RNA and SARS-CoV-2 (COVID-19) N gene panel - Respiratory specimen by ROYCE with probe detection Vero Morales OPERATIONS PROGRAM MANAGER Work Phone: Start: 10-19-2023 OBTAIN VENOUS BLOOD GASES AND PERFORM Garrick Caruso MD Work Phone: Start: 10-19-2023 Red blood cell morphology Vero Morales OPERATIONS PROGRAM MANAGER Work Phone: Start: 10-19-2023 Ecg routine ecg w/least 12 lds w/i&r Garrick Caruso MD Work Phone: Start: 07-03-2023 FOLLOW UP IN FAMILY MEDICINE DAYAMI ROE Start: 06-26-2023 CHOLESTEROL, LDL DIRECT DAYAMI ROE Start: 06-26-2023 Comprehensive metabolic 2000 panel - Serum or Plasma DAYAMI ROE Start: 06-26-2023 Hemoglobin A1c/Hemoglobin.total in Blood DAYAMI ROE Start: 06-26-2023 PROSTATE SPECIFIC ANTIGEN, SCREEN GETACHEW ROE Start: 06-26-2023 Lipid 1996 panel - Serum or Plasma Sarthak Roe MD Work Phone: Start: 12-24-2022 Lipid 1996 panel - Serum or Plasma Sarthak Roe MD Work Phone: Start: 02-07-2022 Cardiac catheterization Dayami murphy Work Phone: Comment on above: [facility], less than 70% stenosis, no stent; Start: 03-01-2020 Colonoscopy Dayami Roe MD Work Phone: Start: 12-09-2018 [object Object] Comment on above: Result Comment: AGE-SPECIFIC REFERENCE R ANGES FOR SERUM PSA REFERENCE RANGE NG/ML AGE ASIANS BLACKS WHITE 40-49 0-2 0-2 0-2.5 50-59 0-3 0-4 0-3.5 60-69 0-4 0-4.5 0-4.5 70-79 0-5 0-5.5 0-6.5 PSA INCREASES WITH AGE, RACE, AND EJACULATION WITHIN 48 HRS. [facility] VOL24,NO.2, , PG.339 Performed By: #### [id number] #### [facility] [address] [place] [address] Start: 07-16-2018 Colonoscopy Dameon Rai DO Work Phone: Start: 07-16-2018 Colonoscopy Dayami Roe Work Phone: Comment on above: Jerome, 2019, +polyp (3 years); Start: 01-08-2013 Laryngoscopy Dayami Roe Work Phone: Comment on above: Dr. Whitfield's office; Appendectomy Dayami mclain Work Phone: Arthroplasty of knee Juan Roe Work Phone: Comment on above: right knee per [facility] no details of date; Operative procedure on ankle Dayami Roe Work Phone: Comment on above: With plate - Dr. Gonsalves; Plan of Treatment Date Care Activity Detail Author Start: 10-19-2033 Screening for malignant neoplasm of colon [facility] Start: 08-05-2031 DTaP/Tdap/Td Vaccines (2 - Td or Tdap) DTaP/Tdap/Td Vaccines (2 - Td or Tdap) [facility] Start: 08-05-2031 Tetanus vaccination Tetanus: Every 10yrs [facility] Start: 08-05-2031 Urine microalbumin profile DTaP,Tdap,Td Vaccine (2 - Td or Tdap) [facility] Start: 03-01-2030 Screening for malignant neoplasm of colon [facility] Start: 07-16-2028 Screening for malignant neoplasm of colon [facility] Start: 07-06-2027 Diabetes Screening Diabetes Screening [facility] Start: 06-21-2027 Diabetes Screening Diabetes Screening [facility] Start: 06-08-2027 Diabetes Screening Diabetes Screening [facility] Start: 05-24-2027 Diabetes Screening Diabetes Screening [facility] Start: 05-11-2027 Diabetes Screening Diabetes Screening [facility] Start: 04-26-2027 Diabetes Screening Diabetes Screening [facility] Start: 04-12-2027 Diabetes Screening Diabetes Screening [facility] Start: 03-29-2027 Diabetes Screening Diabetes Screening [facility] Start: 03-15-2027 Diabetes Screening Diabetes Screening [facility] Start: 03-01-2027 Diabetes Screening Diabetes Screening [facility] Start: 02-15-2027 Diabetes Screening Diabetes Screening [facility] Start: 02-01-2027 Diabetes Screening Diabetes Screening [facility] Start: 01-18-2027 Diabetes Screening Diabetes Screening [facility] Start: 01-05-2027 Diabetes Screening Diabetes Screening [facility] Start: 12-24-2026 Diabetes Screening Diabetes Screening [facility] Start: 12-14-2026 Diabetes Screening Diabetes Screening [facility] Start: 11-10-2026 Diabetes Screening Diabetes Screening [facility] Start: 01-09-2026 Annual PCP Team Chronic Disease Visit Annual PCP Team Chronic Disease Visit [facility] Start: 01-06-2026 Hepatitis B screening Urine Albumin:Creatinine Ratio [facility] Start: 01-06-2026 Hepatitis B surface antibody level LDL Cholesterol [facility] Start: 11-09-2025 BP Controlled (<130/80) BP Controlled (<130/80) [facility] Start: 07-25-2025 Glaucoma screening Dilated Retinal Exam [facility] Start: 07-11-2025 Annual PCP Team Chronic Disease Visit Annual PCP Team Chronic Disease Visit [facility] Start: 07-11-2025 BP Controlled (<130/80) BP Controlled (<130/80) [facility] Start: 07-09-2025 Hemoglobin A1c measurement HbA1C [facility] Start: 06-28-2025 Annual PCP Team Chronic Disease Visit Annual PCP Team Chronic Disease Visit [facility] Start: 06-28-2025 BP Controlled (<130/80) BP Controlled (<130/80) [facility] Start: 06-21-2025 BP Controlled (<130/80) BP Controlled (<130/80) [facility] Start: 03-08-2025 Annual PCP Team Chronic Disease Visit Annual PCP Team Chronic Disease Visit [facility] Start: 03-08-2025 BP Controlled (<130/80) BP Controlled (<130/80) [facility] Start: 03-08-2025 Covid-19 Vaccine ( season) Covid-19 Vaccine ( season) [facility] Comment on above: Postponed from 02/28/2024 (Declined at t his time) Start: 03-08-2025 Covid-19 Vaccine ( season) Covid-19 Vaccine ( season) [facility] Comment on above: Postponed from 02/28/2024 (Declined at t his time) Start: 03-08-2025 RSV Vaccine (1 - 1-dose 60+ series) RSV Vaccine (1 - 1-dose 60+ series) [facility] Comment on above: Postponed from 2007 (Declined at t his time) Start: 03-08-2025 RSV Vaccine (1 - 1-dose 75+ series) RSV Vaccine (1 - 1-dose 75+ series) [facility] Comment on above: Postponed from 10/24/2022 (Declined at t his time) Start: 03-08-2025 Shingrix Vaccine (1 of 2) Shingrix Vaccine (1 of 2) [facility] Comment on above: Postponed from 10/24/1966 (Declined at t his time) Start: 02-27-2025 Influenza vaccination Influ[facility] Start: 02-16-2025 End: 02-16-2025 ambulatory 02/16/2025 4:00 PM EDT Infusion Center Hematology/Oncology [address] [place] [address] Wstr, Lab/Port [facility] [address] [place] [address] D/C CADD* Hematology/Oncology Comment on above: D/C CADD* Start: 02-14-2025 End: 02-14-2025 ambulatory Hematology/Oncology Comment on above: (SO)CBC/CMP(S)/MG(S)/CEA/QMO URINE(PORT) /OV & CHEMO TODAY* OV(PORT)LAB EARLY/CH EMO TODAY* MASCI - OV EVERY OTHER TREATMENT Q2WK FOLFIRI/AVASTIN /(PORT)LAB&OV EARLY* EARLY APPTS (SO)CBC/CMP(S)/MG(S) /CEA/QMO URINE(PORT)/OV TODAY* OV(PORT)LAB EARLY* Start: 02-02-2025 End: 02-02-2025 ambulatory 02/02/2025 4:00 PM EDT Infusion Center Hematology/Oncology [address] [place] [address] Wstr, Lab/Port [place] [facility] [address] [place] [address] D/C CADD* Hematology/Oncology Comment on above: D/C CADD* Start: 01-31-2025 End: 01-31-2025 ambulatory 01/31/2025 9:00 AM EDT Infusion Center Hematology/Oncology [address] [place] [address] (SO)CBC/CMP(S)/MG(S)/CEA /Q2WK FOLFIRI/AVASTIN/QMO B12(PORT)* EARLY APPTS Hematology/Oncology Comment on above: (SO)CBC/CMP(S)/MG(S)/CEA/Q2WK FOLFIRI/AV ASTIN/QMO B12(PORT)* EARLY APPTS Start: 01-20-2025 End: 01-20-2025 ambulatory 01/20/2025 4:00 PM EDT Infusion Center Hematology/Oncology [address] [place] [address] Wstr, Lab/Port [place] [facility] [address] [place] [address] D/C CADD* Hematology/Oncology Comment on above: D/C CADD* Start: 01-19-2025 End: 01-19-2025 ambulatory 01/19/2025 4:00 PM EDT [facility] Center Hematology/Oncology [address] [place] [address] Wstr, Lab/Port [place] [facility] [address] [place] [address] D/C CADD* Hematology/Oncology Comment on above: D/C CADD* Start: 01-18-2025 End: 01-18-2025 ambulatory Hematology/Oncology Comment on above: (SO)CBC/CMP(S)/MG(S)/CEA/Q2WK FOLFOX/SATINDER STIN/QMO B12(PORT)* EARLY APPTS (SO)CBC/CMP(S)/MG(S) /CEA/Q2WK FOLFIRI/AVASTIN/QMO B12(PORT)* EARLY APPTS Start: 01-17-2025 Hemoglobin A1c measurement HbA1C [facility] Start: 01-17-2025 End: 01-17-2025 ambulatory Hematology/Oncology Comment on above: (SO)CBC/CMP(S)/MG(S)/CEA/QMO URINE(PORT) /OV & CHEMO TODAY* OV(PORT)LAB EARLY/CH EMO TODAY* MASCI - OV EVERY OTHER TREATMENT Q2WK FOLFIRI/AVASTIN /(PORT)LAB&OV EARLY* EARLY APPTS Start: 01-16-2025 End: 01-16-2025 Patient encounter procedure 01/16/2025 9:00 AM EDT Office Visit [facility] [address] [place] [address] Mady Armenta APRN.OPERATIONS PROGRAM MANAGER [address] [place] [address] 1 week follow up. Pneumonia [facility] Comment on above: 1 week follow up. Pneumonia Start: 01-13-2025 End: 01-13-2025 ambulatory 01/13/2025 4:00 PM EDT Infusion Center Hematology/Oncology [address] [place] [address] Wstr, Lab/Port [place] [facility] [address] [place] [address] D/C CADD* Hematology/Oncology Comment on above: D/C CADD* Start: 01-11-2025 End: 01-11-2025 ambulatory Hematology/Oncology Comment on above: (SO)CBC/CMP(S)/MG(S)/CEA/QMO URINE(PORT) /OV & CHEMO TODAY* OV(PORT)LAB EARLY/CH EMO TODAY* MASCI - OV EVERY OTHER TREATMENT Q2WK FOLFIRI/AVASTIN /(PORT)LAB&OV EARLY* EARLY APPTS Start: 01-09-2025 Bacteria identified in Sputum by Culture [facility] Start: 01-09-2025 Bacterial nucleic acid assay [facility] Start: 01-09-2025 Catheterization of vein [facility] Start: 01-09-2025 Consultation [facility] Start: 01-09-2025 Legionella pneumophila Ag [Presence] in Urine [facility] Start: 01-09-2025 Streptococcus pneumoniae antigen assay [facility] Start: 01-09-2025 [facility] Start: 01-09-2025 Hospital admission, emergency, from emergency room, medical nature [facility] Start: 01-09-2025 Admission procedure [facility] Start: 01-09-2025 Administration of blood product [facility] Start: 01-09-2025 Leukocyte reduced red blood cells [facility] Start: 01-09-2025 [facility] Start: 01-09-2025 Plain chest X-ray Chest 1 View (Portable) [facility] Start: 01-09-2025 XR Chest Single view [facility] Start: 01-09-2025 End: 01-09-2025 [facility] Start: 01-09-2025 Bacteria identified in Blood by Culture Blood Culture [facility] Start: 01-09-2025 End: 01-09-2025 Patient encounter procedure [facility] Comment on above: 6 month follow up 6 month follow up--[facility] follow up on 12/21/2023 nausea, vomiting, shortness of breath Start: 01-06-2025 End: 01-06-2025 ambulatory Hematology/Oncology Comment on above: D/C CADD* lab Start: 01-05-2025 End: 01-05-2025 ambulatory 01/05/2025 4:00 PM T Infusion Center Hematology/Oncology [address] [place] [address] Wstr, Lab/Port [place] [facility] [address] [place] [address] D/C CADD* Hematology/Oncology Comment on above: D/C CADD* Start: 01-04-2025 End: 01-04-2025 ambulatory Hematology/Oncology Comment on above: (SO)CBC/CMP(S)/MG(S)/CEA/QMO URINE(PORT) /OV & CHEMO TODAY* OV(PORT)LAB EARLY/CH EMO TODAY* MASCI- OV EVERY OTHER TX Q2WK FOLFOX/AVASTIN/ (PORT)LAB&OV EARLY* EARLY APPTS Q2WK FOLFIRI/AVASTIN /(PORT)LAB&OV EARLY* EARLY APPTS STRAIGHTBACK (SO)CBC /CMP(S)/MG(S)/CEA/QMO URINE(PORT)Q2WK FOLFIRI/AVASTIN* EARLY APPTS Start: 01-03-2025 End: 01-03-2025 ambulatory 01/03/2025 10:00 AM [facility] Infusion Center Hematology/Oncology [address] [place] [address] (SO)CBC/CMP(S)/MG(S)/CEA /Q2WK FOLFIRI/AVASTIN/QMO B12(PORT)* EARLY APPTS Hematology/Oncology Comment on above: (SO)CBC/CMP(S)/MG(S)/CEA/Q2WK FOLFIRI/AV ASTIN/QMO B12(PORT)* EARLY APPTS Start: 01-02-2025 End: 04-03-2025 Hemoglobin A1c in Blood HEMOGLOBIN A1C Lab Routine Controlled type 2 diabetes mellitus without complication, with long-term current use of insulin (HCC) Expected: 01/02/2025, Expires: 04/03/2025 [facility] Work Phone: Comment on above: Expected: 01/02/2025, Expires: Start: 01-02-2025 End: 04-03-2025 LIPID PANEL, NONFASTING LIPID PANEL, NONFASTING Lab Routine Controlled type 2 diabetes mellitus without complication, with long-term current use of insulin (HCC) Expected: 01/02/2025, Expires: 04/03/2025 [facility] Comment on above: Expected: 01/02/2025, Expires: Start: 01-02-2025 End: 04-03-2025 Microalbumin/Creatinine [Mass Ratio] in Urine ALBUMIN/CREATININE RATIO, URINE Lab Routine Controlled type 2 diabetes mellitus without complication, with long-term current use of insulin (HCC) Expected: 01/02/2025, Expires: 04/03/2025 [facility] Comment on above: Expected: 01/02/2025, Expires: Start: 12-29-2024 End: 12-29-2024 ambulatory 12/29/2024 4:00 PM EDT Infusion Center Hematology/Oncology [address] [place] [address] Wstr, Lab/Port [place] [facility] [address] [place] [address] D/C CADD* Hematology/Oncology Comment on above: D/C CADD* Start: 12-28-2024 Hepatitis B screening Urine Albumin:Creatinine Ratio [facility] Start: 12-28-2024 Urine screening for protein Diabetes: Urine Protein Screening [facility] Start: 12-27-2024 End: 12-27-2024 ambulatory 12/27/2024 8:00 AM EDT Infusion Center Hematology/Oncology [address] [place] [address] (SO)CBC/CMP(S)/MG(S)/CEA /Q2WK FOLFIRI/AVASTIN/QMO B12(PORT)* EARLY APPTS Hematology/Oncology Comment on above: (SO)CBC/CMP(S)/MG(S)/CEA/Q2WK FOLFIRI/AV ASTIN/QMO B12(PORT)* EARLY APPTS Start: 12-24-2024 Hepatitis B surface antibody level LDL Cholesterol [facility] Start: 12-24-2024 Lipid panel Lipid Panel [facility] Start: 12-23-2024 End: 12-23-2024 ambulatory 12/23/2024 4:00 PM EDT Infusion Center Hematology/Oncology [address] [place] [address] Wstr, Lab/Port [facility] [address] [place] [address] D/C CADD* Hematology/Oncology Comment on above: D/C CADD* Start: 12-22-2024 End: 12-22-2024 ambulatory 12/22/2024 4:00 PM EDT Infusion Center Hematology/Oncology [address] [place] [address] Wstr, Lab/Port [place] [facility] [address] [place] [address] D/C CADD* Hematology/Oncology Comment on above: D/C CADD* Start: 12-21-2024 End: 12-21-2024 ambulatory Hematology/Oncology Comment on above: (SO)CBC/CMP(S)/MG(S)/CEA/Q2WK FOLFOX/SATINDER STIN/QMO B12(PORT)* EARLY APPTS (SO)CBC/CMP(S)/MG(S) /CEA/Q2WK FOLFIRI/AVASTIN/QMO B12(PORT)* EARLY APPTS Start: 12-20-2024 End: 12-20-2024 ambulatory Hematology/Oncology Comment on above: (SO)CBC/CMP(S)/MG(S)/CEA/QMO URINE(PORT) /OV & CHEMO TODAY* OV(PORT)LAB EARLY/CH EMO TODAY* MASCI - OV EVERY OTHER TREATMENT Q2WK FOLFIRI/AVASTIN /(PORT)LAB&OV EARLY* EARLY APPTS Start: 12-15-2024 End: 12-15-2024 ambulatory 12/15/2024 4:00 PM EDT Infusion Center Hematology/Oncology [address] [place] [address] Wstr, Lab/Port [facility] [address] [place] [address] D/C CADD* Hematology/Oncology Comment on above: D/C CADD* Start: 12-15-2024 End: 03-16-2025 Basic metabolic 2000 panel - Serum or Plasma BASIC METABOLIC PANEL Lab Routine Cancer of cecum (HCC) 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) Expected: 12/15/2024, Expires: 03/16/2025 [facility] Comment on above: Expected: 12/15/2024, Expires: Start: 12-15-2024 End: 03-16-2025 CBC W Auto Differential panel - Blood COMPLETE BLOOD COUNT AND DIFFERENTIAL Lab STAT Cancer of cecum (HCC) 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) History of iron deficiency Expected: 12/15/2024, Expires: 03/16/2025 [facility] Work Phone: Comment on above: Expected: 12/15/2024, Expires: Start: 12-13-2024 End: 12-13-2024 ambulatory 12/13/2024 10:30 AM EDT Infusion Center Hematology/Oncology [address] [place] [address] Q2WK FOLFIRI/AVASTIN/(PORT)LA B&OV EARLY* EARLY APPTS Hematology/Oncology Comment on above: Q2WK FOLFIRI/AVASTIN/(PORT)LAB&OV EARLY* EARLY APPTS Start: 12-13-2024 End: 12-13-2024 ambulatory Hematology/Oncology Comment on above: (SO)CBC/CMP(S)/MG(S)/CEA/QMO URINE(PORT) /OV & CHEMO TODAY* OV(PORT)LAB EARLY/CH EMO TODAY* MASCI - OV EVERY OTHER TREATMENT Start: 12-09-2024 End: 12-09-2024 ambulatory 12/09/2024 4:00 PM EDT Infusion Center Hematology/Oncology [address] [place] [address] Wstr, Lab/Port [place] [facility] [address] [place] [address] D/C CADD* Hematology/Oncology Comment on above: D/C CADD* Start: 12-07-2024 End: 12-07-2024 ambulatory Hematology/Oncology Comment on above: (SO)CBC/CMP(S)/MG(S)/CEA/QMO URINE(PORT) /OV & CHEMO TODAY* OV(PORT)LAB EARLY/CH EMO TODAY* masci every other treatment Q2WK FOLFOX/AVASTIN/ (PORT)LAB&OV EARLY/AUTH EXP 11/01/24* EARLY APPTS Q2WK FOLFIRI/AVASTIN /(PORT)LAB&OV EARLY/AUTH EXP 11/01/24* EARLY APPTS D/C CADD* Start: 12-05-2024 End: 12-05-2024 ambulatory 12/05/2024 8:00 AM EDT Infusion Center Hematology/Oncology [address] [place] [address] delayed from 11/23 (SO)CBC/CMP(S)/MG(S)/CEA /Q2WK FOLFIRI/AVASTIN/QMO B12(PORT)/AUTH EXP 11/01/24* EARLY APPTS Hematology/Oncology Comment on above: delayed from 11/23 (SO)CBC/CMP(S)/MG(S)/C EA/Q2WK FOLFIRI/AVASTIN/QMO B12(PORT)/AUTH EXP 11/01/24* EARLY APPTS Start: 12-02-2024 End: 12-02-2024 ambulatory 12/02/2024 4:00 PM EDT Infusion Center Hematology/Oncology [address] [place] [address] Wstr, Lab/Port [place] [facility] [address] [place] [address] D/C CADD* Hematology/Oncology Comment on above: D/C CADD* Start: 11-30-2024 End: 11-30-2024 ambulatory 11/30/2024 10:00 AM EDT Infusion Center Hematology/Oncology [address] [place] [address] delayed from 11/23 (SO)CBC/CMP(S)/MG(S)/CEA /Q2WK FOLFIRI/AVASTIN/QMO B12(PORT)/AUTH EXP 11/01/24* EARLY APPTS Hematology/Oncology Comment on above: delayed from 11/23 (SO)CBC/CMP(S)/MG(S)/C EA/Q2WK FOLFIRI/AVASTIN/QMO B12(PORT)/AUTH EXP 11/01/24* EARLY APPTS Start: 11-25-2024 End: 11-25-2024 ambulatory 11/25/2024 4:00 PM EDT Infusion Center Hematology/Oncology [address] [place] [address] Wstr, Lab/Port [place] [facility] [address] [place] [address] D/C CADD* Hematology/Oncology Comment on above: D/C CADD* Start: 11-24-2024 Administration of blood product [facility] Start: 11-24-2024 [facility] Start: 11-23-2024 End: 11-23-2024 ambulatory Hematology/Oncology Comment on above: (SO)CBC/CMP(S)/MG(S)/CEA/Q2WK FOLFOX/SATINDER STIN/QMO B12(PORT)/AUTH EXP ?* (SO)CBC/CMP(S)/MG(S) /CEA/Q2WK FOLFOX/AVASTIN/QMO B12(PORT)/AUTH EXP 11/01/24* EARLY APPTS (SO)CBC/CMP(S)/MG(S) /CEA/Q2WK FOLFIRI/AVASTIN/QMO B12(PORT)/AUTH EXP 11/01/24* EARLY APPTS Start: 11-11-2024 End: 11-11-2024 ambulatory 11/11/2024 4:00 PM EDT Infusion Center Hematology/Oncology [address] [place] [address] Wstr, Lab/Port [facility] [address] [place] [address] D/C CADD* Hematology/Oncology Comment on above: D/C CADD* Start: 11-09-2024 End: 02-08-2025 [id number] [facility] Work Phone: Comment on above: Expected: 11/09/2024, Expires: Start: 11-09-2024 End: 11-09-2024 ambulatory Hematology/Oncology Comment on above: (SO)CBC/CMP(S)/MG(S)/CEA/QMO URINE(PORT) /OV & CHEMO TODAY* OV(PORT)LAB EARLY/CH EMO TODAY* masci every other treatment Q2WK FOLFOX/AVASTIN/ (PORT)LAB&OV EARLY/AUTH EXP ?* Q2WK FOLFOX/AVASTIN/ (PORT)LAB&OV EARLY/AUTH EXP 11/01/24* EARLY APPTS Start: 11-02-2024 End: 11-02-2024 Patient encounter procedure Cat Scan Comment on above: Cancer of cecum (HCC) [C18.0] Start: 10-28-2024 End: 10-28-2024 ambulatory 10/28/2024 4:00 PM EDT Infusion Center Hematology/Oncology [address] [place] [address] Wstr, Lab/Port [place] [facility] [address] [place] [address] D/C CADD* Hematology/Oncology Comment on above: D/C CADD* Start: 10-26-2024 End: 10-26-2024 ambulatory Hematology/Oncology Comment on above: (SO)CBC/CMP(S)/MG(S)/CEA/Q2WK FOLFOX/SATINDER STIN/QMO B12(PORT)/AUTH EXP ?* (SO)CBC/CMP(S)/MG(S) /CEA/Q2WK FOLFOX/AVASTIN/QMO B12(PORT)/AUTH EXP 11/01/24* Start: 10-14-2024 End: 10-14-2024 ambulatory 10/14/2024 4:00 PM EDT Infusion Center Hematology/Oncology [address] [place] [address] Wstr, Lab/Port [place] Roberto c [address] [place] [address] D/C CADD* Hematology/Oncology Comment on above: D/C CADD* Start: 10-12-2024 End: 10-12-2024 ambulatory Hematology/Oncology Comment on above: (SO)CBC/CMP(S)/MG(S)/CEA/QMO URINE(PORT) /OV & CHEMO TODAY* OV(PORT)LAB EARLY/CH EMO TODAY* masci every other treatment Q2WK FOLFOX/AVASTIN/ (PORT)LAB&OV EARLY/AUTH EXP ?* Q2WK FOLFOX/AVASTIN/ (PORT)LAB&OV EARLY/AUTH EXP 11/01/24* Start: 10-11-2024 Hemoglobin A1c measurement HbA1C [facility] Start: 09-30-2024 End: 09-30-2024 ambulatory 09/30/2024 4:00 PM EDT Infusion Center Hematology/Oncology [address] [place] [address] Wstr, Lab/Port [place] [facility] [address] [place] [address] D/C CADD* Hematology/Oncology Comment on above: D/C CADD* Start: 09-28-2024 End: 09-28-2024 ambulatory Hematology/Oncology Comment on above: (SO)CBC/CMP(S)/MG(S)/CEA/Q2WK FOLFOX/SATINDER STIN/QMO B12(PORT)/AUTH EXP ?* (SO)CBC/CMP(S)/MG(S) /CEA/Q2WK FOLFOX/AVASTIN/QMO B12(PORT)/AUTH EXP 11/01/24* Start: 09-16-2024 End: 09-16-2024 ambulatory 09/16/2024 4:00 PM EDT Infusion Center Hematology/Oncology [address] [place] [address] Wstr, Lab/Port [place] [facility] [address] [place] [address] D/C CADD* Hematology/Oncology Comment on above: D/C CADD* Start: 09-14-2024 End: 09-14-2024 ambulatory Hematology/Oncology Comment on above: (SO)CBC/CMP(S)/MG(S)/CEA(PORT)/OV & CHEM O TODAY* OV(PORT)LAB EARLY/CH EMO TODAY* masci every other treatment Q2WK FOLFOX/AVASTIN/ (PORT)LAB&OV EARLY/AUTH EXP 09/27/24* (SO)CBC/CMP(S)/MG(S) /CEA/QMO URINE(PORT)/OV & CHEMO TODAY* Start: 09-02-2024 End: 09-02-2024 ambulatory 09/02/2024 4:00 PM EST [facility] Hematology/Oncology [address] [place] [address] Wstr, Lab/Port [facility] [address] [place] [address] D/C CADD* Hematology/Oncology Comment on above: D/C CADD* Start: 08-31-2024 End: 08-31-2024 ambulatory 08/31/2024 9:00 AM EST [facility] H[facility]ology[facility]Oncology [address] [place] [address] (SO)CBC/CMP(S)/MG(S)/CEA /Q2WK FOLFOX/AVASTIN/QMO B12(PORT)/AUTH EXP 09/27/24* Hematology/Oncology Comment on above: (SO)CBC/CMP(S)/MG(S)/CEA/Q2WK FOLFOX/SATINDER STIN/QMO B12(PORT)/AUTH EXP 09/27/24* Start: 08-19-2024 End: 08-19-2024 ambulatory 08/19/2024 4:00 PM EST Infusion Center Hematology/Oncology [address] [place] [address] Wstr, Lab/Port Jose Roberto [facility] [address] [place] [address] D/C CADD* Hematology/Oncology Comment on above: D/C CADD* Start: 08-17-2024 End: 08-17-2024 ambulatory Hematology/Oncology Comment on above: (SO)CBC/CMP(S)/MG(S)/CEA(PORT)/OV & CHEM O TODAY* OV(PORT)LAB EARLY/CH EMO TODAY* masci every other treatment Q2WK FOLFOX/AVASTIN/ (PORT)LAB&OV EARLY/AUTH EXP 09/27/24* OV(PORT)LAB&CT 08/10/ CHEMO TODAY* masci every other treatment Start: 08-10-2024 End: 08-10-2024 ambulatory 08/10/2024 1:30 PM EST Infusion Center Hematology/Oncology [address] [place] [address] Wstr, Lab/Port Jose Roberto [facility] [address] [place] [address] (SO)CBC/CMP(S)/MG(S)/CEA /QMO URINE(PORT)/OV & CHEMO TODAY* Hematology/Oncology Comment on above: (SO)CBC/CMP(S)/MG(S)/CEA/QMO URINE(PORT) /OV & CHEMO TODAY* Start: 08-10-2024 End: 08-10-2024 Patient encounter procedure Cat Scan Comment on above: Cancer of cecum (HCC) [C18.0] Start: 08-05-2024 End: 08-05-2024 ambulatory 08/05/2024 4:00 PM EST Infusion Center Hematology/Oncology [address] [place] [address] Wstr, Lab/Port Jose Roberto [facility] [address] [place] [address] D/C CADD* Hematology/Oncology Comment on above: D/C CADD* Start: 08-03-2024 End: 08-03-2024 ambulatory Hematology/Oncology Comment on above: (SO)CBC/CMP(S)/MG(S)/CEA/Q2WK FOLFOX/SATINDER STIN/QMO B12(PORT)/AUTH EXP ?* (SO)CBC/CMP(S)/MG(S) /CEA/Q2WK FOLFOX/AVASTIN/QMO B12(PORT)/AUTH EXP 09/27/24* Start: 07-25-2024 End: 07-25-2024 Patient encounter procedure 07/25/2024 2:00 PM EST Office Visit [facility] [address] [place] [address] Jannet Brady, OD [address] [place] [address] Eye exam MMO Medicare/[facility] Comment on above: Eye exam MMO [employer] Start: 07-22-2024 End: 07-22-2024 ambulatory Hematology/Oncology Comment on above: D/C CADD* D/C CADD*/neulasta Start: 07-20-2024 End: 07-20-2024 ambulatory Hematology/Oncology Comment on above: (SO)CBC/CMP(S)/MG(S)/CEA(PORT)/Q2WK FOLF OX/AVASTIN/QMO B12(PORT)AUTH EXP ?* OV(PORT)LAB EARLY/CH EMO* masci every other treatment UA/(SO)CBC/CMP(S)/MG (S)/CEA(PORT)/Q2WK FOLFOX/AVASTIN/QMO B12(PORT)AUTH EXP ?* (SO)CBC/CMP(S)/MG(S) /CEA(PORT)/OV & CHEMO TODAY* OV(PORT)LAB EARLY/CH EMO TODAY* masci every other treatment Q2WK FOLFOX/AVASTIN( PORT)LAB&OV EARLY/AUTH EXP 09/27/24* Start: 07-11-2024 End: 10-10-2024 Hemoglobin A1c in Blood HEMOGLOBIN A1C Lab Routine Controlled type 2 diabetes mellitus without complication, with long-term current use of insulin (HCC) Expected: 07/11/2024, Expires: 10/10/2024 [facility] Work Phone: Comment on above: Expected: 07/11/2024, Expires: Start: 07-11-2024 End: 07-11-2024 Patient encounter procedure 07/11/2024 8:40 AM EST Office Visit [facility] [address] [place] [id number] Dayami Puri MD [address] [place] [phone] 4 month follow up [facility] Comment on above: 4 month follow up Start: 07-08-2024 End: 07-08-2024 ambulatory 07/08/2024 4:00 PM EST Infusion Center Hematology/Oncology [address] [place] [address] Wstr, Lab/Port Jose Roberto [facility] [address] [place] [address] D/C CADD* Hematology/Oncology Comment on above: D/C CADD* Start: 07-06-2024 End: 07-06-2024 ambulatory Hematology/Oncology Comment on above: Q2WK FOLFOX/AVASTIN/QMO B12(PORT)LAB&OV 1/UTH EXP ?* (SO)CBC/CMP(S)/MG(S) /CEA/Q2WK FOLFOX/AVASTIN/QMO B12(PORT)/AUTH EXP ?* Start: 07-05-2024 End: 07-05-2024 ambulatory Hematology/Oncology Comment on above: (SO)CBC/CMP(S)/MG(S)/CEA(PORT)/OV TODAY* OV(PORT)LAB EARLY/CH EMO 07/06* masci Start: 07-04-2024 Medicare Annual Wellness Visit Medicare Annual Wellness Visit (AWV) [facility] Start: 07-03-2024 History and physical examination, annual for health maintenance Wellness Visit [facility] Start: 06-29-2024 Advance Directive Discussion Advance Directive Discussion [facility] Start: 06-29-2024 Medicare Advantage Annual Wellness Visit Medicare Advantage Annual Wellness Visit [facility] Start: 06-26-2024 Lipid panel Lipid Panel [facility] Start: 06-23-2024 End: 06-23-2024 ambulatory 06/23/2024 4:00 PM EST Infusion Center Hematology/Oncology [address] [place] [address] Wstr, Lab/Port Jose Roberto [facility] [address] [place] [address] D/C CADD* Hematology/Oncology Comment on above: D/C CADD* Start: 06-21-2024 End: 06-21-2024 ambulatory Hematology/Oncology Comment on above: Q2WK FOLFOX/AVASTIN/QMO B12(PORT)LAB&OV H EXP 06/28/24* (SO)CBC/CMP(S)/MG(S) /CEA(PORT)/Q2WK FOLFOX/AVASTIN/QMO B12(PORT)AUTH EXP 06/28/24* OV(PORT)LAB EARLY/CH EMO* masci every other treatment UA/(SO)CBC/CMP(S)/MG (S)/CEA(PORT)/Q2WK FOLFOX/AVASTIN/QMO B12(PORT)AUTH EXP 06/28/24* (SO)CBC/CMP(S)/MG(S) /CEA(PORT)/OV & CHEMO TODAY* UA/(SO)CBC/CMP(S)/MG (S)/CEA(PORT)/OV & CHEMO TODAY* Start: 06-20-2024 End: 06-20-2024 ambulatory Hematology/Oncology Comment on above: (SO)CBC/CMP(S)/MG(S)/CEA(PORT)/OV TODAY* OV(PORT)LAB EARLY/CH EMO 06/21* masci Start: 06-14-2024 End: 06-14-2024 Patient encounter procedure 06/14/2024 8:30 AM [facility] [address] [place] [address] Luisito Hassan, MEDICAL REPRESENTATIVE.OPERATIONS PROGRAM MANAGER [address] [place] [address] Colon Cancer, referral from Dr. Puri, [place]/chemo room Palliative Medicine Comment on above: Colon Cancer, referral from Dr. Puri, [place]/chemo room Start: 06-10-2024 End: 06-10-2024 ambulatory 06/10/2024 4:00 PM [facility] Hematology/Oncology [address] [place] [address] Wstr, Lab/Port Jose Roberto [facility] [address] [place] [phone] D/C CADD* Hematology/Oncology Comment on above: D/C CADD* Start: 06-08-2024 End: 06-08-2024 ambulatory Hematology/Oncology Comment on above: Q2WK FOLFOX/AVASTIN(PORT)LAB&OV EXP 06/28/24* Q2WK FOLFOX/AVASTIN/ QMO B12(PORT)LAB&OV EXP 06/28/24* CBC/CMP/MAG/CEA/Q2WK FOLFOX/AVASTIN/QMO B12(PORT)LAB&OV EXP 06/28/24* Start: 06-06-2024 End: 06-06-2024 ambulatory Hematology/Oncology Comment on above: (SO)CBC/CMP(S)/MG(S)/CEA(PORT)/OV TODAY* OV(PORT)LAB EARLY/CH EMO 06/08* masci Start: 05-27-2024 End: 05-27-2024 ambulatory 05/27/2024 4:00 PM EST Infusion Center Hematology/Oncology [address] [place] [address] Wstr, Lab/Port Jose Roberto [facility] [address] [place] [address] D/C CADD* Hematology/Oncology Comment on above: D/C CADD* Start: 05-25-2024 End: 05-25-2024 ambulatory 05/25/2024 9:00 AM EST Infusion Center Hematology/Oncology [address] [place] [address] Q2WK FOLFOX/AVASTIN(PORT)LAB& OV EXP 06/28/24* Hematology/Oncology Comment on above: Q2WK FOLFOX/AVASTIN(PORT)LAB&OV EXP 06/28/24* Start: 05-24-2024 End: 05-24-2024 ambulatory Hematology/Oncology Comment on above: (SO)CBC/CMP(S)/MG(S)/CEA(PORT)/OV TODAY* OV(PORT)LAB EARLY/CH EMO 05/25* masci Start: 05-13-2024 End: 05-13-2024 ambulatory 05/13/2024 4:00 PM EST Infusion Center Hematology/Oncology [address] [place] [address] Wstr, Lab/Port Jose Roberto [facility] [address] [place] [address] D/C CADD* Hematology/Oncology Comment on above: D/C CADD* Start: 05-11-2024 End: 05-11-2024 ambulatory Hematology/Oncology Comment on above: Q2WK FOLFOX/AVASTIN(PORT)LAB&OV 05/10/ TH EXP 06/28/24* Q2WK FOLFOX/AVASTIN/ QMO B12(PORT)LAB&OV 05/10/AUTH EXP 06/28/24* (SO)CBC/CMP(S)/MG(S) /CEA(PORT)/Q2WK FOLFOX/AVASTIN/QMO B12(PORT)LAB&OV AUTH EXP 06/28/24* Start: 05-10-2024 End: 05-10-2024 ambulatory Hematology/Oncology Comment on above: (SO)CBC/CMP(S)/MG(S)/CEA(PORT)/OV TODAY* OV(PORT)LAB EARLY/CH EMO 05/11* masci Start: 04-29-2024 End: 04-29-2024 ambulatory 04/29/2024 4:00 PM [facility] Infusion Center Hematology/Oncology [address] [place] [address] Wstr, Lab/Port Jose Roberto [facility] [address] [place] [address] D/C CADD* Hematology/Oncology Comment on above: D/C CADD* Start: 04-27-2024 End: 04-27-2024 ambulatory Hematology/Oncology Comment on above: Q2WK FOLFOX/AVASTIN(PORT)LAB&OV EXP 06/28/24* Q2WK FOLFOX/AVASTIN( PORT)LAB&OV 04/26/AUTH EXP 06/28/24* Reprint schedule Start: 04-26-2024 End: 04-26-2024 ambulatory Hematology/Oncology Comment on above: (SO)CBC/CMP(S)/MG(S)/CEA(PORT)/OV TODAY* OV(PORT)LAB EARLY/CH EMO 04/27* masci Start: 04-15-2024 End: 04-15-2024 ambulatory Hematology/Oncology Comment on above: D/C CADD* B12 INJ./D/C CADD* Start: 04-13-2024 End: 04-13-2024 ambulatory Hematology/Oncology Comment on above: Q2WK FOLFOX/AVASTIN(PORT)LAB&OV TH EXP 06/28/24* Q2WK FOLFOX/AVASTIN/ QMO B12(PORT)LAB&OV EXP 06/28/24* Start: 04-12-2024 End: 11-10-2024 Complete blood count with white cell differential, manual CBC and Differential Lab Routine Adenocarcinoma of colon (HCC) Expected: 04/12/2024, Expires: 11/10/2024 [facility] Work Phone: Comment on above: Expected: 04/12/2024, Expires: Start: 04-12-2024 End: 04-12-2024 ambulatory Hematology/Oncology Comment on above: (SO)CBC/CMP(S)/MG(S)/CEA(PORT)/OV TODAY* OV(PORT)LAB EARLY/CH EMO 04/13* masci Start: 04-08-2024 End: 04-08-2024 ambulatory Hematology/Oncology Comment on above: QWK B12 QWK B12/4-4* THEN QM O Start: 04-04-2024 End: 04-04-2024 Patient encounter procedure 04/04/2024 9:00 AM EDT Office Visit [facility] [address] [place] [id number] Dayami Roe MD [address] [place] [address] [facility] Start: 04-02-2024 End: 12-31-2024 Cholesterol in LDL [Mass/volume] in Serum or Plasma Cholesterol, LDL Direct Lab Routine Mixed hyperlipidemia Type 2 diabetes mellitus without complication, without long-term current use of insulin (Multi) Expected: 04/02/2024 (Approximate), Expires: 12/31/2024 [facility] Service Area Work Phone: Comment on above: Expected: 04/02/2024 (Approximate), Expi res: 12/31/2024 Start: 04-02-2024 End: 12-31-2024 Comprehensive metabolic 2000 panel - Serum or Plasma Comprehensive Metabolic Panel Lab Routine Mixed hyperlipidemia Hypertension, essential, benign Type 2 diabetes mellitus without complication, without long-term current use of insulin (Multi) Expected: 04/02/2024 (Approximate), Expires: 12/31/2024 [facility] Work Phone: Comment on above: Expected: 04/02/2024 (Approximate), Expi res: 12/31/2024 Start: 04-02-2024 End: 12-31-2024 Hemoglobin A1c/Hemoglobin.total in Blood Hemoglobin A1C Lab Routine Type 2 diabetes mellitus without complication, without long-term current use of insulin (Multi) Expected: 04/02/2024 (Approximate), Expires: 12/31/2024 [facility] Work Phone: Comment on above: Expected: 04/02/2024 (Approximate), Expi res: 12/31/2024 Start: 04-01-2024 End: 04-01-2024 ambulatory 04/01/2024 4:00 PM [facility] Hematology/Oncology [address] [place] [address] Wstr, Lab/Port Jose Roberto [facility] [address] [place] [address] D/C CADD* Hematology/Oncology Comment on above: D/C CADD* Start: 03-30-2024 End: 03-30-2024 ambulatory Hematology/Oncology Comment on above: Q2WK FOLFOX/AVASTIN(PORT)LAB&OV H EXP 06/28/24* Q2WK FOLFOX/AVASTIN( PORT) / QWK B12/ LAB&OV EXP 06/28/24* Q2WK FOLFOX/AVASTIN( PORT) / QWK B12 3-4/ LAB&OV EXP 06/28/24* B12 THEN QMO Start: 03-29-2024 End: 03-29-2024 ambulatory Hematology/Oncology Comment on above: (SO)CBC/CMP(S)/MG(S)/CEA(PORT)/OV TODAY* OV(PORT)LAB EARLY/CH EMO 03/30* masci Start: 03-29-2024 End: 03-29-2024 ambulatory Hematology/Oncology Comment on above: (SO)CBC/CMP(S)/MG(S)/CEA(PORT)/OV TODAY* OV(PORT)LAB EARLY/CH EMO 03/30/CT 03/21* masci (SO)CBC/CMP(S)/MG(S) /CEA(PORT)/QWK B12 /OV TODAY* Start: 03-26-2024 End: 06-25-2024 Hemoglobin A1c in Blood HEMOGLOBIN A1C Lab Routine Controlled type 2 diabetes mellitus without complication, with long-term current use of insulin (HCC) Expected: 03/26/2024, Expires: 06/25/2024 [facility] Work Phone: Comment on above: Expected: 03/26/2024, Expires: Start: 03-26-2024 Hemoglobin A1c measurement Diabetes: Hemoglobin A1C [facility] Start: 03-23-2024 End: 03-23-2024 ambulatory 03/23/2024 10:45 AM EDT Infusion Center Hematology/Oncology [address] [place] [id number] Wstr, Injection Jose Roberto [facility] [address] [place] [id number] QWK B12(PORT)* Hematology/Oncology Comment on above: QWK B12(PORT)* Start: 03-21-2024 End: 03-21-2024 ambulatory Hematology/Oncology Comment on above: PORT ACCESS FOR CT* PORT ACCESS FOR CT/ ADD B12 * Start: 03-21-2024 End: 03-21-2024 Patient encounter procedure Cat Scan Comment on above: Cancer of cecum (HCC) [C18.0]; Colon can cer metastasized to lung (HCC) [C18.9, C78.00]; Malignant neoplasm of colon, unspecified part of colon (HCC) [C18.9] Start: 03-18-2024 End: 03-18-2024 ambulatory 03/18/2024 4:00 PM EDT Infusion Center Hematology/Oncology [address] [place] [address] Wstr, Lab/Port Jose Roberto [facility] [address] [place] [address] D/C CADD* Hematology/Oncology Comment on above: D/C CADD* Start: 03-16-2024 End: 03-16-2024 ambulatory Hematology/Oncology Comment on above: Q2WK FOLFOX/AVASTIN(PORT)LAB&OV 03/15/AUT H EXP 06/28/24* ELECTROLYTES PER 02/27 7 TE* Start: 03-15-2024 End: 03-15-2024 ambulatory Hematology/Oncology Comment on above: (SO)CBC/CMP(S)/MG(S)/CEA(PORT)/OV TODAY* OV(PORT)LAB EARLY/CH EMO 03/16* masci Start: 03-08-2024 End: 03-08-2024 Patient encounter procedure [facility] Comment on above: Building Dismantler consult Start: 03-04-2024 End: 03-04-2024 ambulatory 03/04/2024 4:00 PM EDT Infusion Center Hematology/Oncology [address] [place] [address] Wstr, Lab/Port Jose Roberto [facility] [address] [place] [address] D/C CADD* Hematology/Oncology Comment on above: D/C CADD* Start: 03-02-2024 End: 03-02-2024 ambulatory Hematology/Oncology Comment on above: Q2WK FOLFOX/AVASTIN(PORT)LAB&OV 03/01/AUTH EXP?* Q2WK FOLFOX/AVASTIN( PORT)LAB&OV //AUTH EXP 06/28/24* Start: 03-01-2024 End: 03-01-2024 ambulatory Hematology/Oncology Comment on above: CBC/CMP/MAG/CEA(PORT)OV TODAY* OV(PORT)LAB EARLY/CH EMO 03/02* masci (SO)CBC/CMP(S)/MG(S) /CEA(PORT)/OV TODAY* Start: 02-28-2024 Covid-19 Vaccine ( season) Covid-19 Vaccine () [facility] Start: 02-28-2024 Influenza vaccination [facility] Start: 02-19-2024 End: 02-19-2024 ambulatory 02/19/2024 4:00 PM EDT Infusion Center Hematology/Oncology [address] [place] [address] Wstr, Lab/Port Jose Roberto [facility] [address] [place] [address] D/C CADD* Hematology/Oncology Comment on above: D/C CADD* Start: 02-17-2024 End: 02-17-2024 ambulatory Hematology/Oncology Comment on above: Q2WK FOLFOX/AVASTIN(PORT)LAB&OV 02/15/AUT H EXP?* Q2WK FOLFOX/AVASTIN( PORT)LAB&OV 02/15/AUTH EXP 06/28/24* B12/IRON STUDIES/Q2W K FOLFOX(PORT)LAB&OV 02/15/AUTH EXP 06/28/24* Start: 02-16-2024 End: 05-17-2024 Cobalamin (Vitamin B12) [Mass/volume] in Serum or Plasma VITAMIN B12 Lab Routine Iron deficiency anemia due to chronic blood loss 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) Expected: 02/16/2024, Expires: 05/17/2024 [facility] Comment on above: Expected: 02/16/2024, Expires: Start: 02-16-2024 End: 05-17-2024 Ferritin [Mass/volume] in Serum or Plasma FERRITIN Lab Routine Iron deficiency anemia due to chronic blood loss 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) Expected: 02/16/2024, Expires: 05/17/2024 [facility] Work Phone: Comment on above: Expected: 02/16/2024, Expires: Start: 02-16-2024 End: 05-17-2024 Iron and Iron binding capacity panel - Serum or Plasma IRON AND TIBC Lab Routine Iron deficiency anemia due to chronic blood loss 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) Expected: 02/16/2024, Expires: 05/17/2024 [facility] Comment on above: Expected: 02/16/2024, Expires: Start: 02-16-2024 End: 02-16-2024 ambulatory Hematology/Oncology Comment on above: CBC/CMP/MAG/CEA(PORT)OV TODAY* OV(PORT)LAB EARLY/CH EMO 02/16* masci (SO)CBC/CMP(S)/MG(S) /CEA(PORT)/OV TODAY* Start: 02-05-2024 End: 02-05-2024 ambulatory 02/05/2024 4:00 PM EDT Infusion Center Hematology/Oncology [address] [place] [address] Wstr, Lab/Port Jose Roberto [facility] [address] [place] [address] D/C CADD* Hematology/Oncology Comment on above: D/C CADD* Start: 02-03-2024 End: 02-03-2024 ambulatory Hematology/Oncology Comment on above: Q2WK FOLFOX/AVASTIN(PORT)LAB&OV //AUTH EXP?* Q2WK FOLFOX/AVASTIN( PORT)LAB&OV 8/6/AUTH EXP 06/28/24* Start: 02-02-2024 End: 05-03-2024 Bacteria identified in Urine by Culture [facility] Comment on above: Expected: 02/02/2024, Expires: Start: 02-02-2024 End: 05-03-2024 Urinalysis complete panel - Urine [facility] Work Phone: Comment on above: Expected: 02/02/2024, Expires: Start: 02-02-2024 End: 02-02-2024 ambulatory Hematology/Oncology Comment on above: CBC/CMP/MAG/CEA(PORT)OV TODAY* OV(PORT)LAB EARLY/CH EMO 02/02* (SO)CBC/CMP(S)/MG(S) /CEA(PORT)/OV TODAY* Start: 01-22-2024 End: 01-22-2024 ambulatory 01/22/2024 4:00 PM EDT Infusion Center Hematology/Oncology [address] [place] [address] Wstr, Lab/Port Jose Roberto [facility] [address] [place] [address] D/C CADD* Hematology/Oncology Comment on above: D/C CADD* Start: 01-20-2024 End: 01-20-2024 ambulatory Hematology/Oncology Comment on above: Q2WK FOLFOX/AVASTIN(PORT)LAB&OV H EXP?* est pcp - Q2WK FOLFO X/AVASTIN(PORT)LAB&OV 01/18/ EXP 06/28/24* Start: 01-19-2024 End: 01-19-2024 ambulatory Hematology/Oncology Comment on above: CBC/CMP/MAG/CEA(PORT)OV TODAY* OV(PORT)LAB EARLY/CH EMO 01/19* Start: 01-18-2024 Hemoglobin A1c measurement [facility] Start: 01-08-2024 End: 01-08-2024 ambulatory 01/08/2024 4:00 PM EDT Infusion Center Hematology/Oncology [address] [place] [address] Wstr, Lab/Port Jose Roberto [facility] [address] [place] [address] D/C CADD* Hematology/Oncology Comment on above: D/C CADD* Start: 01-06-2024 End: 01-06-2024 ambulatory 01/06/2024 9:30 AM EDT Infusion Center Hematology/Oncology [address] [place] [address] CBC/CMP/START Q2WK FOLFOX/AVASTIN(PORT)AUTH EXP?* Hematology/Oncology Comment on above: CBC/CMP/START Q2WK FOLFOX/AVASTIN(PORT)A UTH EXP?* Start: 01-01-2024 End: 07-03-2024 Comprehensive metabolic 2000 panel - Serum or Plasma Comprehensive Metabolic Panel Lab Routine Mixed hyperlipidemia Hypertension, essential, benign Type 2 diabetes mellitus without complication, without long-term current use of insulin ([facility]) Expected: 01/01/2024 (Approximate), Expires: 07/03/2024 [facility] Work Phone: Comment on above: Expected: 01/01/2024 (Approximate), Expi res: 07/03/2024 Start: 01-01-2024 End: 07-03-2024 Hemoglobin A1c/Hemoglobin.total in Blood Hemoglobin A1C Lab Routine Type 2 diabetes mellitus without complication, without long-term current use of insulin ([facility]) Expected: 01/01/2024 (Approximate), Expires: 07/03/2024 [facility] Work Phone: Comment on above: Expected: 01/01/2024 (Approximate), Expi res: 07/03/2024 Start: 01-01-2024 End: 07-03-2024 Microalbumin/Creatinine [Mass Ratio] in Urine Albumin , Urine Random Lab Routine Hypertension, essential, benign Expected: 01/01/2024 (Approximate), Expires: 07/03/2024 [facility] Service Area Work Phone: Comment on above: Expected: 01/01/2024 (Approximate), Expi res: 07/03/2024 Start: 01-01-2024 End: 07-03-2024 Thyrotropin [Units/volume] in Serum or Plasma Thyroid Stimulating Hormone Lab Routine Type 2 diabetes mellitus without complication, without long-term current use of insulin ([facility]) Expected: 01/01/2024 (Approximate), Expires: 07/03/2024 [facility] Work Phone: Comment on above: Expected: 01/01/2024 (Approximate), Expi res: 07/03/2024 Start: 01-01-2024 End: 01-01-2024 Patient encounter procedure 01/01/2024 8:40 AM EDT Office Visit [facility] [address] [place] [address] Dayami Roe MD [address] [place] [address] [facility] Start: 12-30-2023 End: 12-30-2023 ambulatory 12/30/2023 2:00 PM EDT Infusion Center Hematology/Oncology [address] [place] [address] IRON SUCROSE/5-5/AUTH EXP 06/28/24* Hematology/Oncology Comment on above: IRON SUCROSE/5-5/AUTH EXP 06/28/24* Start: 12-28-2023 End: 12-28-2023 Patient encounter procedure 12/28/2023 10:30 AM EDT Office Visit [facility] [address] [place] [address] [address] [place] [address] Hayden Balderas [address] [address] [facility] Start: 12-28-2023 End: 12-28-2023 ambulatory 12/28/2023 10:00 AM EDT Infusion Center Hematology/Oncology [address] [place] [address] IRON SUCROSE/4-5/AUTH EXP 06/28/24* Hematology/Oncology Comment on above: IRON SUCROSE/4-5/AUTH EXP 06/28/24* Start: 12-27-2023 Urine screening for protein Diabetes: Urine Protein Screening [facility] Start: 12-25-2023 End: 12-25-2023 ambulatory 12/25/2023 2:30 PM EDT Infusion Center Hematology/Oncology [address] [place] [address] IRON SUCROSE/3-5/AUTH EXP 06/28/24* Hematology/Oncology Comment on above: IRON SUCROSE/3-5/AUTH EXP 06/28/24* Start: 12-25-2023 Lipid panel Lipid Panel [facility] Start: 12-23-2023 End: 12-23-2023 ambulatory 12/23/2023 2:00 PM EDT Infusion Center Hematology/Oncology [address] [place] [address] IRON SUCROSE/2-5/AUTH EXP 06/28/24* Hematology/Oncology Comment on above: IRON SUCROSE/2-5/AUTH EXP 06/28/24* Start: 12-21-2023 End: 12-21-2023 ambulatory 12/21/2023 11:00 AM EDT Infusion Center Hematology/Oncology [address] [place] [address] START IRON SUCROSE/1-5/AUTH EXP 06/28/24* Hematology/Oncology Comment on above: START IRON SUCROSE/1-5/AUTH EXP 06/28/24 * Start: 12-18-2023 End: 12-18-2023 ambulatory 12/18/2023 1:30 PM EDT Infusion Center Hematology/Oncology [address] [place] [address] Wstr, It Quality Analyst [facility] [address] [place] [address] CHEMO ED - FOLFOX/AVASTIN* Hematology/Oncology Comment on above: CHEMO ED - FOLFOX/AVASTIN* Start: 12-15-2023 End: 12-15-2023 ambulatory 12/15/2023 2:00 PM EDT Visit (SP) Office Hematology/Oncology [address] [place] [address] Aarti Bar DO [address] [place] [address] FUNERAL DIRECTOR/COLON CANCER WITH LIVER AND LUNG METS/REF.* Hematology/Oncology Comment on above: FUNERAL DIRECTOR/COLON CANCER WITH LIVER AND LUNG METS /REF.* Start: 12-15-2023 End: 03-15-2024 Carcinoembryonic Ag [Mass/volume] in Serum or Plasma [facility] Work Phone: Comment on above: Expected: 12/15/2023, Expires: Start: 12-15-2023 End: 03-15-2024 [id number] GENOTYPING PANEL [facility] Comment on above: Expected: 12/15/2023, Expires: 4 Start: 11-24-2023 End: 11-24-2023 Patient encounter procedure 11/24/2023 2:00 PM EDT Office Visit [facility] [address] [place] [address] Hayden Balderas DO [address] [place] [address] [facility] Start: 11-13-2023 End: 11-12-2024 CBC W Auto Differential panel - Blood [facility] Service Area Work Phone: Comment on above: Expected: 11/13/2023 (Approximate), Expi res: 11/12/2024 Start: 11-13-2023 End: 11-12-2024 Cobalamin (Vitamin B12) [Mass/volume] in Serum or Plasma [facility] Work Phone: Comment on above: Expected: 11/13/2023 (Approximate), Expi res: 11/12/2024 Start: 11-13-2023 End: 11-12-2024 Ferritin [Mass/volume] in Serum or Plasma [facility] Work Phone: Comment on above: Expected: 11/13/2023 (Approximate), Expi res: 11/12/2024 Start: 11-13-2023 End: 11-12-2024 Iron and Iron binding capacity panel - Serum or Plasma [facility] Work Phone: Comment on above: Expected: 11/13/2023 (Approximate), Expi res: 11/12/2024 Start: 11-13-2023 End: 11-12-2024 Reticulocytes panel - Blood [facility] Work Phone: Comment on above: Expected: 11/13/2023 (Approximate), Expi res: 11/12/2024 Start: 11-12-2023 End: 11-10-2024 PET+CT Guidance for localization of tumor of Skull base to mid-thigh-- W [id number] IV PET Tumor Imaging With CT Skull To Thigh Imaging Routine Adenocarcinoma of colon (HCC) Expected: 11/12/2023, Expires: 11/10/2024 [facility] Comment on above: Expected: 11/12/2023, Expires: Start: 11-11-2023 End: 11-11-2023 Patient encounter procedure 11/11/2023 2:45 PM EDT Office Visit [facility] [address] [facility] [address] [place] [address] Hayden Balderas, DO [address] [place] [address] [facility] Start: 10-30-2023 End: 10-30-2023 Patient encounter procedure 10/30/2023 1:40 PM EDT Office Visit [facility] [address] [place] [phone] Dayami Roe MD [address] [place] [address] [facility] Start: 09-25-2023 Hemoglobin A1c measurement Diabetes: Hemoglobin A1C [facility] Start: 07-04-2023 Medicare Annual Wellness Visit Medicare Annual Wellness Visit (AWV) [facility] Start: 07-03-2023 End: 01-01-2024 Cholesterol in LDL [Mass/volume] in Serum or Plasma Cholesterol, LDL Direct Lab Routine Mixed hyperlipidemia Type 2 diabetes mellitus without complication, without long-term current use of insulin (CMS/HCC) Expected: 07/03/2023 (Approximate), Expires: 01/01/2024 [facility] Service Area Work Phone: Comment on above: Expected: 07/03/2023 (Approximate), Expi res: 01/01/2024 Start: 07-03-2023 End: 01-01-2024 Comprehensive metabolic 2000 panel - Serum or Plasma Comprehensive Metabolic Panel Lab Routine Mixed hyperlipidemia Type 2 diabetes mellitus without complication, without long-term current use of insulin (CMS/HCC) Expected: 07/03/2023 (Approximate), Expires: 01/01/2024 [facility] Work Phone: Comment on above: Expected: 07/03/2023 (Approximate), Expi res: 01/01/2024 Start: 07-03-2023 End: 01-01-2024 Hemoglobin A1c/Hemoglobin.total in Blood Hemoglobin A1C Lab Routine Type 2 diabetes mellitus without complication, without long-term current use of insulin ([facility]) Expected: 07/03/2023 (Approximate), Expires: 01/01/2024 [facility] Work Phone: Comment on above: Expected: 07/03/2023 (Approximate), Expi res: 01/01/2024 Start: 07-03-2023 End: 07-03-2024 Lipid 1996 panel - Serum or Plasma Lipid Panel Lab Routine Mixed hyperlipidemia Type 2 diabetes mellitus without complication, without long-term current use of insulin ([facility]) Expected: 07/03/2023 (Approximate), Expires: 07/03/2024 [facility] Work Phone: Comment on above: Expected: 07/03/2023 (Approximate), Expi res: 07/03/2024 Start: 07-03-2023 End: 07-03-2023 Patient encounter procedure 07/03/2023 8:20 AM EST Office Visit [facility] [address] [place] [id number] Dayami Roe MD [address] [place] [address] [facility] Start: 06-29-2023 Advance Directive Discussion Advance Directive Discussion [facility] Start: 06-29-2023 Behavioral Health Screening Behavioral Health Screening [facility] Start: 06-29-2023 zzBehavioral Health Screening zzBehavioral Health Screening [facility] Start: 06-25-2023 Hemoglobin A1c measurement A1C [facility] Start: 03-26-2023 Hemoglobin A1c measurement Diabetes: Hemoglobin A1C [facility] Start: 02-27-2023 Covid-19 Vaccine () Covid-19 Vaccine () [facility] Start: 02-27-2023 COVID-19 Vaccine ( season) COVID-19 Vaccine () [facility] Start: 02-27-2023 Influenza vaccination [facility] Start: 12-31-2022 End: 01-01-2024 Prostate specific Ag [Mass/volume] in Serum or Plasma Prostate Specific Antigen, Screen Lab Routine Prostate cancer screening Expected: 12/31/2022 (Approximate), Expires: 01/01/2024 [facility] Work Phone: Comment on above: Expected: 12/31/2022 (Approximate), Expi res: 01/01/2024 Start: 12-31-2022 EPV, Provider: Dayami Roe, Status: Pen, Time: 9:20 AM EPV, Provider: Dayami Roe, Status: Pen, Time: 9:20 AM [facility] [place] [place] Work Phone: Start: 07-25-2022 COVID-19 Vaccine (4 - Booster for Moderna series) COVID-19 Vaccine (4 - Booster for Moderna series) [facility] Start: 07-25-2022 COVID-19 Vaccine (4 - Moderna series) COVID-19 Vaccine (4 - Moderna series) [facility] Start: 07-03-2022 EPV, Provider: Dayami Roe, Status: Pen, Time: 9:20 AM EPV, Provider: Dayami Roe, Status: Pen, Time: 9:20 AM [facility] [place] [place] Work Phone: Start: 06-09-2022 End: 06-09-2022 Patient encounter procedure 06/09/2022 Appointment Cardiology Dipti Hoffman MD [address] [place] [address] [facility] Start: 05-27-2022 End: 05-27-2022 Patient encounter procedure 05/27/2022 Office Visit Cardiology Dipti Hoffman MD [address] [facility] [place] [place] [address] [facility] Start: 04-24-2022 FUV, Provider: Ambrosio Bailey, Status: Pen, Time: 11:15 AM FUV, Provider: Ambrosio Bailey, Status: Pen, Time: 11:15 AM [facility] Work Phone: Start: 04-14-2022 NPV, Provider: Tamara Sesay, Status: Pen, Time: 9:00 AM NPV, Provider: Tamara Sesay, Status: Pen, Time: 9:00 AM [facility] Work Phone: Start: 04-01-2022 EPV, Provider: Dayami Roe, Status: Pen, Time: 11:00 AM EPV, Provider: Dayami Roe, Status: Pen, Time: 11:00 AM [facility] Work Phone: Start: 03-25-2022 EPV, Provider: Dayami Roe, Status: Pen, Time: 3:40 PM EPV, Provider: Dayami Roe, Status: Pen, Time: 3:40 PM [facility] Work Phone: Start: 03-07-2022 EPV, Provider: Dayami Roe, Status: Pen, Time: 3:00 PM EPV, Provider: Dayami Roe, Status: Pen, Time: 3:00 PM [facility] Work Phone: Start: 02-27-2022 Influenza vaccination Sequential Influenza Vaccine (#1) [facility] Start: 02-26-2022 EPV, Provider: Dayami Roe, Status: Pen, Time: 8:00 AM EPV, Provider: Dayami Roe, Status: Pen, Time: 8:00 AM [facility] Work Phone: Start: 02-10-2022 End: 02-10-2022 Admission to same day surgery center 02/10/2022 Surgery Cardiology Baljinder Banegas MD [facility] [place] [address] Left Heart Cath Possbile PTCA/Stent [facility] Comment on above: Left Heart Cath Possbile PTCA/Stent Start: 02-10-2022 Subsequent hospital visit by physician [facility] Procedural Care Unit Start: 01-28-2022 End: 01-28-2022 Patient encounter procedure 01/28/2022 Office Visit Cardiology Dmaeon aRi, [address] [place] [address] Dipti Hoffman MD [address] [place] [address] [facility] Start: 01-22-2022 EPV, Provider: Dayami Roe, Status: Pen, Time: 8:40 AM EPV, Provider: Dayami Roe, Status: Pen, Time: 8:40 AM [email or web address] Work Phone: Start: 09-01-2021 COVID-19 Vaccine (4 - Booster for Moderna series) COVID-19 Vaccine (4 - Booster for Moderna series) [facility] Start: 07-02-2021 EPV, Provider: Dayami Roe, Status: Pen, Time: 8:40 AM EPV, Provider: Dayami Roe, Status: Pen, Time: 8:40 AM [email or web address] Work Phone: Start: 06-29-2021 COVID-19 Vaccine (4 - Booster for Moderna series) COVID-19 Vaccine (4 - Booster for Moderna series) [facility] Start: 06-19-2021 EPV, Provider: Dayami Roe, Status: Pen, Time: 8:40 AM EPV, Provider: Dayami Roe, Status: Pen, Time: 8:40 AM [facility] Work Phone: Start: 12-26-2020 EPV, Provider: Dayami Roe, Status: Pen, Time: 8:40 AM EPV, Provider: Dayami Roe, Status: Osei, Time: 8:40 AM [facility] Work Phone: Start: 10-24-2012 Abdominal aortic aneurysm screening Abdominal Aortic Aneurysm (AAA) Screening [facility] Start: 10-24-2012 Fall risk assessment Falls Risk Assessment [facility] Start: 2007 Hepatitis B Vaccines (1 of 3 - Risk 3-dose series) Hepatitis B Vaccines (1 of 3 - Risk 3-dose series) [facility] Start: 2007 RSV patients and/or patients aged 60+ years (1 - 1-dose 60+ series) RSV patients and/or patients aged 60+ years (1 - 1-dose 60+ series) [facility] Start: 2007 RSV Vaccine (1 - 1-dose 60+ series) RSV Vaccine (1 - 1-dose 60+ series) [facility] Start: 10-24-1997 Administration of herpes zoster vaccine Zoster Vaccines (1 of 2) [facility] Start: 10-24-1997 Screening for malignant neoplasm of colon [facility] Start: 10-24-1997 Shingrix Vaccine (1 of 2) Shingrix Vaccine (1 of 2) [facility] Start: 10-24-1997 Zoster Vaccines (1 of 2) Zoster Vaccines (1 of 2) [facility] Start: 10-24-1969 DTaP/Tdap/Td Vaccines (1 - Tdap) DTaP/Tdap/Td Vaccines (1 - Tdap) [facility] Start: 10-24-1966 Hepatitis A Vaccines (1 of 2 - Risk 2-dose series) Hepatitis A Vaccines (1 of 2 - Risk 2-dose series) [facility] Start: 10-24-1966 Shingrix Vaccine (1 of 2) Shingrix Vaccine (1 of 2) [facility] Start: 10-24-1966 Urine microalbumin profile DTaP,Tdap,Td Vaccine (1 - Tdap) [facility] Start: 10-24-1965 Anxiety Screening Anxiety Screening [facility] Start: 10-24-1965 BP Controlled (<130/80) BP Controlled (<130/80) [facility] Start: 10-24-1965 Depression Screening Depression Screening [facility] Start: 10-24-1965 Hepatitis C screening Hepatitis C Screening [facility] Start: 1959 Depression screening using PHQ-9 (Patient Health Questionnaire 9) score Depression Screening (PHQ-2/9) [facility] Start: 10-24-1957 Diabetic foot examination [facility] Start: 10-24-1957 Glaucoma screening [facility] Start: 10-24-1957 Microalbumin measurement, urine, quantitative Urine Microalbumin [facility] Start: 10-24-1957 Ophthalmic examination and evaluation [facility] Start: 10-24-1957 Urine screening for protein Urine Microalbumin [facility] Start: 10-24-1950 History and physical examination, annual for health maintenance Wellness Visit [facility] Start: 1947 Hemoglobin A1c measurement A1C [facility] Start: 1947 Medicare Annual Wellness Visit Medicare Annual Wellness Visit (AWV) [facility] Start: 1947 Prostate specific antigen measurement PSA Level [facility] Start: 1947 Screening for malignant neoplasm of colon [facility] Bilirubin measuremen t, urine [facility] Carcinoembryonic Ag [Mass/volume] in Serum or Plasma CARCINOEMBRYONIC ANTIGEN Lab Routine Cancer of cecum (HCC) 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) 01/19/2024 3:34 PM [facility] Work Phone: Carcinoembryonic Ag [Mass/volume] in Serum or Plasma CARCINOEMBRYONIC ANTIGEN Lab Routine Cancer of cecum (HCC) 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) 02/02/2024 10:47 AM [facility] Work Phone: Carcinoembryonic Ag [Mass/volume] in Serum or Plasma CARCINOEMBRYONIC ANTIGEN Lab Routine Cancer of cecum (HCC) 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) 02/16/2024 9:33 AM [facility] Work Phone: Carcinoembryonic Ag [Mass/volume] in Serum or Plasma CARCINOEMBRYONIC ANTIGEN Lab Routine Cancer of cecum (HCC) 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) 03/01/2024 9:05 AM [facility] Work Phone: Carcinoembryonic Ag [Mass/volume] in Serum or Plasma CARCINOEMBRYONIC ANTIGEN Lab Routine Cancer of cecum (HCC) 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) 03/15/2024 8:40 AM [facility] Carcinoembryonic Ag [Mass/volume] in Serum or Plasma CARCINOEMBRYONIC ANTIGEN Lab Routine Cancer of cecum (HCC) 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) 03/29/2024 8:07 AM [facility] Work Phone: Carcinoembryonic Ag [Mass/volume] in Serum or Plasma CARCINOEMBRYONIC ANTIGEN Lab Routine Cancer of cecum (HCC) 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) 04/12/2024 9:56 AM [facility] Work Phone: Carcinoembryonic Ag [Mass/volume] in Serum or Plasma CARCINOEMBRYONIC ANTIGEN Lab Routine Cancer of cecum (HCC) 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) 04/26/2024 9:43 AM [facility] Work Phone: Carcinoembryonic Ag [Mass/volume] in Serum or Plasma CARCINOEMBRYONIC ANTIGEN Lab Routine Cancer of cecum (HCC) 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) 05/11/2024 9:22 AM [facility] Work Phone: Carcinoembryonic Ag [Mass/volume] in Serum or Plasma CARCINOEMBRYONIC ANTIGEN Lab Routine Cancer of cecum (HCC) 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) 05/24/2024 9:23 AM [facility] Work Phone: Carcinoembryonic Ag [Mass/volume] in Serum or Plasma CARCINOEMBRYONIC ANTIGEN Lab Routine Cancer of cecum (HCC) 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) 06/08/2024 9:24 AM [facility] Work Phone: Carcinoembryonic Ag [Mass/volume] in Serum or Plasma CARCINOEMBRYONIC ANTIGEN Lab Routine Cancer of cecum (HCC) 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) 06/21/2024 8:22 AM [facility] Work Phone: Carcinoembryonic Ag [Mass/volume] in Serum or Plasma CARCINOEMBRYONIC ANTIGEN Lab Routine Cancer of cecum (HCC) 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) Anemia due to vitamin B12 deficiency, unspecified B12 deficiency type History of iron deficiency 07/06/2024 8:46 AM [facility] Work Phone: Carcinoembryonic Ag [Mass/volume] in Serum or Plasma CARCINOEMBRYONIC ANTIGEN Lab Routine Cancer of cecum (HCC) 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) Anemia due to vitamin B12 deficiency, unspecified B12 deficiency type History of iron deficiency 08/03/2024 8:53 AM [facility] Work Phone: Carcinoembryonic Ag [Mass/volume] in Serum or Plasma CARCINOEMBRYONIC ANTIGEN Lab Routine Cancer of cecum (HCC) 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) Anemia due to vitamin B12 deficiency, unspecified B12 deficiency type History of iron deficiency 08/10/2024 1:09 PM [facility] Work Phone: End: 08-17-2025 Carcinoembryonic Ag [Mass/volume] in Serum or Plasma CARCINOEMBRYONIC ANTIGEN Lab Routine 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) Every other week for 26 Occurrences starting 08/17/2024 until 08/17/2025 [facility] Work Phone: Comment on above: Every other week for 26 Occurrences star ting 08/17/2024 until 08/17/2025 Carcinoembryonic Ag [Mass/volume] in Serum or Plasma CARCINOEMBRYONIC ANTIGEN Lab Routine Cancer of cecum (HCC) 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) Anemia due to vitamin B12 deficiency, unspecified B12 deficiency type History of iron deficiency 08/31/2024 8:59 AM [facility] Work Phone: Carcinoembryonic Ag [Mass/volume] in Serum or Plasma CARCINOEMBRYONIC ANTIGEN Lab Routine 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) 09/14/2024 9:15 AM [facility] Work Phone: Carcinoembryonic Ag [Mass/volume] in Serum or Plasma CARCINOEMBRYONIC ANTIGEN Lab Routine Cancer of cecum (HCC) 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) Anemia due to vitamin B12 deficiency, unspecified B12 deficiency type History of iron deficiency 09/28/2024 10:04 AM [facility] Work Phone: Carcinoembryonic Ag [Mass/volume] in Serum or Plasma CARCINOEMBRYONIC ANTIGEN Lab Routine 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) 10/12/2024 9:59 AM [facility] Work Phone: Carcinoembryonic Ag [Mass/volume] in Serum or Plasma CARCINOEMBRYONIC ANTIGEN Lab Routine Cancer of cecum (HCC) 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) Anemia due to vitamin B12 deficiency, unspecified B12 deficiency type History of iron deficiency 10/26/2024 9:15 AM [facility] Work Phone: Carcinoembryonic Ag [Mass/volume] in Serum or Plasma CARCINOEMBRYONIC ANTIGEN Lab Routine 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) 11/09/2024 9:13 AM [facility] Work Phone: Carcinoembryonic Ag [Mass/volume] in Serum or Plasma CARCINOEMBRYONIC ANTIGEN Lab Routine 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) 11/23/2024 10:23 AM [facility] Work Phone: Carcinoembryonic Ag [Mass/volume] in Serum or Plasma CARCINOEMBRYONIC ANTIGEN Lab Routine 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) 11/30/2024 10:02 AM [facility] Work Phone: Carcinoembryonic Ag [Mass/volume] in Serum or Plasma CARCINOEMBRYONIC ANTIGEN Lab Routine Cancer of cecum (HCC) 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) Anemia due to vitamin B12 deficiency, unspecified B12 deficiency type History of iron deficiency 12/05/2024 8:07 AM EDT [facility] Carcinoembryonic Ag [Mass/volume] in Serum or Plasma CARCINOEMBRYONIC ANTIGEN Lab Routine 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) 12/15/2024 11:28 AM EDT [facility] Work Phone: End: 11-10-2024 Carcinoembryonic antigen measurement CEA Lab Routine Adenocarcinoma of colon (HCC) 1 Occurrences starting 11/11/2023 until 11/10/2024 [facility] Comment on above: 1 Occurrences starting 11/11/2023 until 11/10/2024 Carcinoembryonic ant igen measurement CEA Lab Routine Adenocarcinoma of colon (HCC) 11/11/2023 4:51 PM EDT [facility] CBC W Auto Different ial panel - Blood COMPLETE BLOOD COUNT AND DIFFERENTIAL Lab STAT Cancer of cecum (HCC) 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) 03/15/2024 8:40 AM [facility] Work Phone: Clostridioides diffi cile toxin genes [Presence] in Stool by ROYCE with probe detection C. DIFFICILE PCR Lab Routine Cancer of cecum (HCC) 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) Diarrhea of presumed infectious origin 02/02/2024 1:46 PM EDT [facility] Cobalamin (Vitamin B 12) [Mass/volume] in Serum or Plasma VITAMIN B12 Lab Routine Iron deficiency anemia due to chronic blood loss 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) [facility] & [facility]FLU[facility] A/ B & RSV PCR, ROUTINE COVID & INFLUENZA A/B & RSV PCR, ROUTINE Microbiology Routine Lower respiratory infection (e.g., bronchitis, pneumonia, pneumonitis, pulmonitis) Ordered: 06/28/2024 [facility] Work Phone: Comment on above: Ordered: 06/28/2024 Creatine kinase [Enzymatic activity/volume] in Serum or Plasma [facility] End: 03-31-2025 CT Abdomen and Pelvis W contrast IV CT ABD/PEL W IVCON Radiology Routine Cancer of cecum (HCC) 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) Malignant neoplasm of colon, unspecified part of colon (HCC) 1 Occurrences starting 03/01/2024 until 03/31/2025 [facility] Work Phone: Comment on above: 1 Occurrences starting 03/01/2024 until 03/31/2025 CT Abdomen and Pelvi s W contrast IV CT ABD/PEL W IVCON Radiology Routine Cancer of cecum (HCC) 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) Malignant neoplasm of colon, unspecified part of colon (HCC) 03/21/2024 10:03 AM [facility] Work Phone: End: 08-20-2025 CT Abdomen and Pelvis W contrast IV CT ABD/PEL W IVCON Radiology Routine Cancer of cecum (HCC) 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) 1 Occurrences starting 07/20/2024 until 08/20/2025 [facility] Comment on above: 1 Occurrences starting 07/20/2024 until 08/20/2025 CT Abdomen and Pelvi s W contrast IV CT ABD/PEL W IVCON Radiology Routine Cancer of cecum (HCC) 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) 08/10/2024 2:[address] [facility] End: 11-11-2025 CT Abdomen and Pelvis W contrast IV CT ABD/PEL W IVCON Radiology Routine Cancer of cecum (HCC) 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) 1 Occurrences starting 10/12/2024 until 11/11/2025 [facility] Comment on above: 1 Occurrences starting 10/12/2024 until 11/11/2025 CT Abdomen and Pelvi s W contrast IV CT ABD/PEL W IVCON Radiology Routine Cancer of cecum (HCC) 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) 11/02/2024 9:17 AM [facility] End: 03-31-2025 CT Chest W contrast IV CT CHEST W IVCON Radiology Routine Cancer of cecum (HCC) 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) Malignant neoplasm of colon, unspecified part of colon (HCC) 1 Occurrences starting 03/01/2024 until 03/31/2025 [facility] Comment on above: 1 Occurrences starting 03/01/2024 until 03/31/2025 CT Chest W contrast IV CT CHEST W IVCON Radiology Routine Cancer of cecum (HCC) 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) Malignant neoplasm of colon, unspecified part of colon (HCC) 03/21/2024 10:03 AM [facility] End: 08-19-2025 CT Chest W contrast IV CT CHEST W IVCON Radiology Routine Cancer of cecum (HCC) 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) 1 Occurrences starting 07/20/2024 until 08/19/2025 [facility] Work Phone: Comment on above: 1 Occurrences starting 07/20/2024 until 08/19/2025 CT Chest W contrast IV CT CHEST W IVCON Radiology Routine Cancer of cecum (HCC) 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) 08/10/2024 2:36 PM [facility] Work Phone: End: 11-11-2025 CT Chest W contrast IV CT CHEST W IVCON Radiology Routine Cancer of cecum (HCC) 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) 1 Occurrences starting 10/12/2024 until 11/11/2025 [facility] Work Phone: Comment on above: 1 Occurrences starting 10/12/2024 until 11/11/2025 CT Chest W contrast IV CT CHEST W IVCON Radiology Routine Cancer of cecum (HCC) 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) 11/02/2024 9:17 AM [facility] Work Phone: End: 07-27-2023 Echocardiography Echocardiogram complete Echocardiography Routine Coronary artery disease involving [place] coronary artery of [place] heart without angina pectoris Dyspnea, unspecified type 1 Occurrences starting 05/27/2022 until 07/27/2023 [facility] Work Phone: Comment on above: 1 Occurrences starting 05/27/2022 until 07/27/2023 ENTERIC BACTERIAL PA HARVEY BY PCR ENTERIC BACTERIAL PANEL BY PCR Lab Routine Cancer of cecum (HCC) 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) Diarrhea of presumed infectious origin 02/02/2024 1:46 PM EDT [facility] Ferritin [Mass/volum e] in Serum or Plasma FERRITIN Lab Routine Iron deficiency anemia due to chronic blood loss 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) 03/15/2024 8:40 AM EDT [facility] Work Phone: Hemoglobin [Presence ] in Urine [facility] Hemoglobin A1c in Blood HEMOGLOB IN A1C Lab Routine Controlled type 2 diabetes mellitus without complication, with long-term current use of insulin (HCC) 04/12/2024 9:56 AM EDT [facility] Work Phone: Iron and Iron bindin g capacity panel - Serum or Plasma IRON AND TIBC Lab Routine Iron deficiency anemia due to chronic blood loss 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) 03/15/2024 8:40 AM EDT [facility] LEFT HEART CATH POSS IBLE PTCA/STENT LEFT HEART CATH POSSIBLE PTCA/STENT Shortness of Breath [facility] Magnesium measurement [facility] Measurement of keton es in urine using dipstick [facility] Microscopic urinalysis [facility] End: 11-10-2024 MTB SCREEN MTB SCREEN Lab Routine Adenocarcinoma of colon (HCC) 1 Occurrences starting 11/11/2023 until 11/10/2024 [facility] Comment on above: 1 Occurrences starting 11/11/2023 until 11/10/2024 MTB SCREEN MTB SCREEN Lab R outine Adenocarcinoma of colon (HCC) 11/11/2023 4:51 PM EDT [facility] pH of Urine [facility] Specific gravity of Urine [facility] Tempus xF - Blood/Li quid Biopsy Sample [facility]us xF - Blood/Liquid Biopsy Sample Lab Routine Adenocarcinoma of colon (HCC) 11/11/2023 4:57 PM EDT [facility] Tempus xT - Tumor Sample [facility] xT - Tumor Sample Lab Routine Adenocarcinoma of colon (HCC) 10/28/2023 11:42 AM EDT [facility] Work Phone: UA DIP B/O UA DIP B/O Lab R outine Cancer of cecum (HCC) Ordered: 12/05/2024 [facility] Work Phone: Comment on above: Ordered: 12/05/2024 UA DIP, URINE (POC) UA DIP, URIN E (POC) Lab Routine Cancer of cecum (HCC) Ordered: 01/06/2024 [facility] Work Phone: Comment on above: Ordered: 01/06/2024 UA DIP, URINE (POC) UA DIP, URIN E (POC) Lab Routine Cancer of cecum (HCC) 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) Ordered: 05/25/2024 [facility] Work Phone: Comment on above: Ordered: 05/25/2024 End: 07-20-2025 UA DIP, URINE (POC) UA DIP, URINE (POC) Lab Routine Cancer of cecum (HCC) 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) Once per month for 12 Occurrences starting 07/20/2024 until 07/20/2025 [facility] Comment on above: Once per month for 12 Occurrences starti ng 07/20/2024 until 07/20/2025 Urine blood test [facility] Urine culture [facility] Urine dipstick for glucose [facility] Urine dipstick for leukocyte esterase [facility] Urine dipstick for nitrite [facility] Urine dipstick for protein [facility] Urine examination [facility] Urine microscopy: epithelial cells [facility] Urine Microscopy: wh ite cells [facility] Urobilinogen [Presen ce] in Urine [facility] Immunizations Immunization Date Immunization Notes Care Provider [facility] 03-08-2024 influenza, high dose seasonal, preservative-free Dayami Puri MD Work Phone: [facility] 03-08-2024 influenza virus vaccine, unspecified formulation Dayami Puri MD Work Phone: [facility] 05-30-2022 Fluzone High-Dose Quadrivalent 0.7 ML Intramuscular Suspension Prefilled Syringe Dayami Roe Work Phone: [facility] Work Phone: 05-30-2022 Pfizer COVID-19 Vac Bivalent 30 MCG/0.3ML Intramuscular Suspension Dayami Roe Work Phone: [facility] Work Phone: 05-30-2022 influenza virus vaccine, unspecified formulation Dayami Roe MD Work Phone: [facility] Work Phone: 08-05-2021 tetanus toxoid, redu cristobal diphtheria toxoid, and acellular pertussis vaccine, adsorbed Dameon Oscar DO Work Phone: [facility] 05-04-2021 Moderna COVID-19 Vaccine 100 MCG/0.5ML Intramuscular Suspension Dayami Roe Work Phone: [facility] Work Phone: 09-27-2020 Moderna COVID-19 Vaccine 100 MCG/0.5ML Intramuscular Suspension Dayami Roe Work Phone: [facility] Work Phone: 08-30-2020 Moderna COVID-19 Vaccine 100 MCG/0.5ML Intramuscular Suspension Dayami Roe Work Phone: [facility] Work Phone: 07-21-2019 influenza, seasonal, injectable Dayami Roe Work Phone: [facility] Work Phone: Comment on above: Series: 07-21-2019 pneumococcal conjuga te vaccine, 13 valent Dayami Roe Work Phone: [facility] Comment on above: Series: 07-21-2019 Seasonal trivalent influenza vaccine, adjuvanted, preservative free Dayami Puri MD Work Phone: [facility] 07-21-2019 influenza virus vaccine, unspecified formulation Aarti Dipika DO Work Phone: [facility] 06-10-2016 pneumococcal conjuga te vaccine, 13 valent Dayami Roe Work Phone: [facility] Work Phone: Comment on above: Series: 11-12-2012 pneumococcal polysaccharide vaccine, 23 valent Dayami Roe Work Phone: [facility] Comment on above: Series: 10-30-1998 tetanus toxoid, unspecified formulation Dayami Roe MD Work Phone: [facility] Work Phone: Payers Date Payer Category Payer Medicare (Managed Care) MMO [employer] HMO [id number] 2024 Self-pay 2022 Unknown 2022 Unknown [id number] 2021 Medicare [id number] 2021 Medicare [id number] 2012 Medicare [id number] 2006 Unknown [id number] 1945 Unknown [id number] 2.16.840.1.644815.3.579. 2.1068 1945 Unknown [id number] 2.16.840.1.192710.3.579. 2.1068 1947 Unknown [id number] 2.16.840.1.983572.3.579. 2.1069 1947 Unknown [id number] 2.840.1.966290.3.579. 2.106 1947 Unknown [id number] 2.16840.1.314103.3.579. 2.1068 1947 Unknown [id number] 2.840.1.894612.3.579. 2.1068 1947 Unknown [id number] 2.16840.1.579025.3.579. 2.1068 1947 Unknown [id number] 2.840.1.687659.3.579. 2.356 1947 Unknown [id number] 2.840.1.862715.3.579. 2.356 1947 Unknown [id number] 2.840.1.993688.3.579. 2.356 1947 Unknown [id number] 2.840.1.660534.3.579. 2.356 1947 Unknown [id number] 2.840.1.174212.3.579. 2.356 1947 Unknown [id number] 2.840.1.146651.3.579. 2.902 1947 Unknown [id number] 2.840.1.011779.3.579. 2.90 1947 Unknown [id number] 2.840.1.776380.3.579. 2.903 1947 Unknown [id number] 2.840.1.060772.3.579. 2.90 1947 Unknown [id number] 2.840.1.551801.3.579. 2.903 1947 Unknown [id number] 2.840.1.594264.3.579. 2.90 1947 Unknown [id number] 2.840.1.881819.3.579. 2. 1945 Unknown [id number] 2.840.1.759412.3.579. 2. 1945 Unknown [id number] 2.16840.1.557581.3.579. 2. 1945 Unknown [id number] 2.840.1.619088.3.579. 2. 1945 Unknown [id number] 2.840.1.920432.3.579. 2. 1945 Unknown [id number] 2.0.1.479697.3.579. 2.1243 1947 Unknown [id number] 2.840.1.793665.3.579. 2.1243 1947 Unknown [id number] 2.0.1.246650.3.579. 2.1243 1947 Unknown [id number] 2.0.1.451187.3.579. 2.1243 1947 Unknown [id number] 2.0.1.789468.3.579. 2.1244 1947 Unknown [id number] 2.840.1.885123.3.579. 2.1244 1947 Unknown [id number] .840.1.771433.3.579. 2.1244 1947 Unknown [id number] .840.1.379085.3.579. 2.1245 Medicare [id number] Unknown [id number] 2.840.1.230456.3.579. 2.462 Unknown [id number] .840.1.036496.3.579. 2.462 Social History Date Type Detail Facility [facility] ever smoked [facility] Start: 1945 Sex Assigned At Not on file [facility] Start: 12-31-2022 End: 07-22-2024 Denies alcohol consumption Denies alcohol consumption [facility] Start: 01-06-2022 Tobacco smoking stat [facility] Tobacco smoking consumption unknown [facility] Start: 12-27-2021 End: 01-01-2024 Exposure to SARS-CoV-2 (event) Not sure [facility] Start: 01-28-2022 Tobacco [facility] Never smoked tobacco [facility] Start: 01-28-2022 End: 03-08-2024 Tobacco use and exposure Smokeless tobacco non-user [facility] Start: 01-28-2022 End: 11-30-2023 Alcohol intake Lifetime non-drinker (finding) [facility] Start: 12-31-2022 End: 03-08-2024 Tobacco smoking status NHIS Ex-smoker [facility] Start: 06-29-1973 End: 06-29-1983 History of tobacco use Current smoker [facility] Work Phone: Start: 06-29-1973 End: 06-29-1983 History of tobacco use Cigarette Smoker [facility] Work Phone: Start: 12-31-2022 End: 01-09-2025 Alcohol intake Ex-drinker (finding) [facility] Work Phone: Start: 12-31-2022 End: 07-22-2024 Tobacco use panel [facility] Start: 08-05-2021 Gender identity Identifies as male gender (finding) [facility] Start: 08-05-2021 Sexual orientation Heterosexua l (finding) [facility] Has the electric, H-umus s, oil, or water company threatened to shut off services in your home in past 12Mo No [facility] (I/We) worried manuel er (my/our) food would run out before (I/we) got money to buy more. Never true [facility] In the past 12 month s, has lack of transportation kept you from medical appointments or from getting medications? No [facility] Are you now , , , , never or living with a partner? [facility] How often to you hav e a drink containing alcohol? Never [facility] How hard is it for y ou to pay for the very basics like food, housing, medical care, and heating Not very hard [facility] Do you feel stress - tense, restless, nervous, or anxious, or unable to sleep at night because your mind is troubled all the time - these days [OSQ] Not at all [facility] Start: 1945 Sex Assigned At Male [facility] NEGATED: Highlighted rowStart: NINF History of tobacco use Passive smoker [facility] Work Phone: Medical Equipment Procedure Code Equipment Code Equipment Origin al Text Equipment Identifier Dates [id number], [id number] FDA Start: 10-21-2023 Use to inject 1- 4 times daily as directed. [id number] Start: 01-01-2024 End: 12-31-2024 Mental Status Date Assessment Result Facility 11-24-2024 Cognitive function Level Of Cons ciousness Awake;Alert;Appropriate;Follow s Commands [facility] Work Phone: Clinical Notes 01-22-2021 to 01-09-2025 Note Date & Type Note Facility 01-09-2025 Discharge summary [facility] 01-09-2025 Discharge summary Note Date/Time January 09, 2025 4:46pm [facility] Medical Records Department [address] [place] [address] Emergency Department Summary 01/09/25 MR#: [id number] Acct: [id number] Name: DIPTI SIERRA Rep #:[id number] : 1945 79 From: Alexandro Dillard PCP: Dr. Chaitanya Puri MD Status :REG ER Location: ED HPI History of Present Illness Chief Complaint: Shortness of Breath Informant: patient and family Narrative Narrative: Sent from PCP office for admission for concerning sepsis. I spoke with Dr. Hudson prior to patient arrival. 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 He stopped his chemotherapy few months ago due to side effects. Couple weeks ago was admitted to [facility] for day due to dehydration. Last 2 days increasing productive sputum. He denies urinary symptoms denies vomiting diarrhea. Reports heart rate was 120s in the office hehad a 20 pound weight loss. Patient had prescription of Augmentin and Z-Ayah forwhich they picked up however not started. Outpatient chest x-ray concerning fornew left sided pneumonia. Reported his white count increase also from lab work. Oncologist Dr. Bar. Prior similar symptoms: Yes PFSH [facility] Medical History Sleep apnea Colon cancer GERD (gastroesophageal reflux disease) High cholesterol HTN (hypertension) Home Medications ?Medication ?Instructions ?Recorded ?Last Taken ?Type aspirin 81 mg tablet,delayed 81 mg PO DAILY 01/07/22 0 01/08/25 History release glimepiride 4 mg tablet 4 mg PO DAILY 01/07/2201/09 History omeprazole 40 mg capsule,delayed 40 mg PO DAILY 01/08/25 History release pioglitazone 30 mg tablet 30 mg PO DAILY 01/07/2212/27 History rosuvastatin 10 mg tablet 10 mg PO DAILY 01/07/2212/27 History mometasone 50 mcg/actuation nasal 2 spray intranasal D AILY 02/01/24 01/08/25 History spray ondansetron HCl 8 mg tablet 8 mg PO Q8H PRN nausea and vomiting 02/01/24 Unknown History prochlorperazine maleate 10 mg 10 mg PO Q6H PRN nausea and 02/01/24 Unknown History tablet vomiting zolpidem 10 mg tablet 10 mg PO QHS PRN PRN sleep 0 02/01/24 Unknown History insulin glargine 100 unit/mL (3 20 unit subcut DAILY 0 11/24/24 Unknown History mL) subcutaneous pen (Lantus Solostar U-100 Insulin) acyclovir 400 mg tablet 400 mg PO BID 01/09/2501/09 History amoxicillin 875 mg-potassium 1 tab PO BID 01/09/25 Unk nown History clavulanate 125 mg tablet azithromycin 250 mg tablet 250 mg PO UD 01/09/25 Unkno wn History hydrochlorothiazide 12.5 mg tablet 12.5 mg PO DAILY 01/09/25 History magnesium chloride 71.5 mg 71.5 mg PO BID 01/09/25 History (magnesium chloride) tablet,delayed release (Slow-Mag) mirtazapine 15 mg tablet 15 mg PO QHS 01/09/25 Unknow n History potassium chloride 10 mEq 10 meq PO BID 01/09/2501/09 History tablet,extended release Allergy/AdvReac Type Severity Reaction Status Date / Time lisinopril Allergy Severe Angioedema Verified 01/09/25 13:14 metformin Allergy Upset Verified 01/09/25 13:14 Stomach Surgical History History of ankle surgery History of knee replacement History of appendectomy History of colon resection Social History housing: house Smoking Status: Former smoker ROS ROS ED Constitutional Constitutional ED: Denies chills, fever(s) or sweats ENT ENT ED: Denies sore throat Cardiovascular Cardiovascular: Denies chest pain, leg edema, palpitations or racing heartbeat Respiratory/Chest Respiratory/Chest: Reports cough; Denies dyspnea or dyspnea on exertion Gastrointestinal Gastrointestinal: Denies abdominal pain, diarrhea, nausea or vomiting Genitourinary Genitourinary ED: Denies dysuria, hematuria or urinary frequency Musculoskeletal Musculoskeletal: Denies back pain, extremity pain or neck pain Integumentary Denies rash or wounds Neurologic Neurologic: Denies headache(s), paresthesias or weakness EXAM Physical Exam Const Vital Signs: 01/09/25 13:13 01/09/25 13:58 01/09/25 13:58 Temperature 97.8 F 98.9 F Temperature Source Oral Oral Pulse Rate 106 H 86 Respiratory Rate 20 H 20 H Respiratory Effort Respiratory Depth Respiratory Pattern Blood Pressure 113/56 L 112/53 L Blood Pressure Mean 75 72 Pulse Ox 93 92 92 Oxygen Delivery Method Room Air Room Air Room Air 01/09/25 13:58 01/09/25 14:14 01/09/25 15:00 Temperature 98.6 F 98.6 F Temperature Source Oral Oral Pulse Rate 81 79 Respiratory Rate 21 H 18 Respiratory Effort Normal Non-Labored Respiratory Depth Normal Respiratory Pattern Normal Blood Pressure 96/54 L 96/53 L Blood Pressure Mean 68 67 Pulse Ox 90 90 Oxygen Delivery Method Room Air Room Air Room Air 01/09/25 16:00 Temperature 98.6 F Temperature Source Oral Pulse Rate 73 Respiratory Rate 18 Respiratory Effort Respiratory Depth Respiratory Pattern Blood Pressure 96/56 L Blood Pressure Mean 69 Pulse Ox 98 Oxygen Delivery Method Room Air Positive well nourished and well developed Constitutional Narrative: Nontoxic, no respiratory distress. General Appearance ED: well developed and NAD HEENT Reports moist mucous membranes normocephalic and atraumatic Eyes General Eye ED: Yes normal appearance of both eyes Neck full ROM Chest Wall Chest: Negative for tenderness Resp normal respiratory effort and normal air movement Effort and Inspection: symmetric chest movement; Negative for respiratory distress Cardio regular rhythm and no murmurs Rate: tachycardic Peripheral Pulses: pulses 2+ throughout GI normal to inspection, nondistended, normoactive bowel sounds and non-tender Palpation: Negative for guarding or rebound tenderness present Extremity normal to inspection General Extremety ED: Negative for edema or tenderness General Extremity: Negative for edema Neuro oriented x3 and no sensory deficits noted Sensorium / Orientation: awake and alert Skin no rashes or lesions noted and no wounds MDM MDM MDM Narrative Medical decision making narrative: Interventions / MDM: Differential diagnosis: Sepsis, pneumonia, metastatic cancer history, anemia Diagnosis considered but do not suspect: N/A My EKG interpretation: Sinus rate of 86, no ST changes. Imaging independently reviewed and interpreted by myself: 1 view chest x-ray: Right lower lobe mass structure noted left lower lobe infiltrative findings. External documents reviewed: Faxed paperwork from primary care chest X today small area of consolidation left lower lobe increasing pulmonary metastasis. Patient outpatient white count of 22 with hemoglobin 7.6. Test considered but not ordered:N/A ED course: Patient here for new pneumonia tachycardic. There is concerns for sepsis. 93% room air. Sepsis labs were ordered. Labs obtain outside hospital system. Will recheck labs and chest x-ray. Blood cultures ordered along with lactic acid. He is covered with Zosyn and vancomycin with his hospitalization 2weeks ago. 1515: Hemoglobin returned at 5.9. Denies any black or bloody stools. Patient family was transfused blood approximately a month ago as an outpatient. From labs hemoglobin was 12.6 in January of last year. Per family when he was transfused is around the 7 range when he was discharged from the hospital coupleweeks ago he was in the 8 range. No cardiac history. Rectal exam had some brown stools with Hemoccult sent. Will type and cross for 1 unit of blood. 1630: Hemoccult returned negative. Patient with pneumonia, anemia, will discusswith hospitalist for admission. I did discuss with GI Dr. Friend, patient was declining any investigations for the anemia from a GI standpoint. Lactic acid was normal. Initial tachycardia white count 13.7 meeting SIRS criteria. Normalcreatinine, normal lactic acid, blood pressure 96/56. Currently on room air. Does not meet sepsis at this time. 1640: I spoke with Dr. Baker of the patient's history and findings. Pressures in the 90s, he was placed in the ICU for close monitoring. Re-evaluation: stable Disposition discussed with patient/family/significant other: Patient and family Case discussed with consulting clinician: Gastroenterology, hospitalist This note was generated with [employer] dictation software. It may contain incorrectwords, spelling, and punctuation that were not noted in checking the note beforesigning. Lab Data Attestation: I reviewed the patient's lab results. Labs: Laboratory Results - last 24 hr 01/09/25 14:08 WBC 13.7 H RBC 2.19 L Hgb 5.9 L* Hct 19.8 L MCV 90.4 MCH 26.9 L MCHC 29.8 L RDW Std Deviation 69.5 H RDW Coeff of Micky 21.6 H Plt Count 280 MPV 9.8 Immature Gran % (Auto) 1.200 H Neut % (Auto) 87.1 H Lymph % (Auto) 6.0 L Medina % (Auto) 5.3 Eos % (Auto) 0.1 Baso % (Auto) 0.3 Absolute Neuts (auto) 11.9 H Absolute Lymphs (auto) 0.82 L Nucleated RBC % 0 Differential Comment SCANNED Platelet Estimate ADEQUATE Polychromasia 1+ Hypochromasia 2+ Anisocytosis 2+ PT 16.4 H INR 1.3 APTT 39.6 H Sodium 133 Potassium 3.6 Chloride 96 L Carbon Dioxide 26.0 Anion Gap 11 BUN 19 Creatinine 1.05 Estim Creat Clear Calc 55.08 Est GFR (MDRD) Non-Af 73 BUN/Creatinine Ratio 17.7 Glucose 177 H Lactic Acid 1.4 Calcium 8.5 Total Bilirubin 0.93 AST 29 ALT 14 Alkaline Phosphatase 130 H Total Protein 7.5 Albumin 2.4 L Globulin 5.1 H Albumin/Globulin Ratio 0.5 L Critical Care Time Critical Care Time: Yes Critical care time (excluding procedures): 30-74 minutes, Discussing w/Patient &/or Family/Manager In Training, Discussing w/Consultants, Arranging Admission or Transfer, Performing Direct Patient Care at Bedside and - (35 minutes) Discharge Plan Triage Chief Complaint: Shortness of Breath ED Provider: Alexandro Navarro Dx/Rx/DC Orders Clinical Impression: Pneumonia, Anemia, Colon cancer metastasized to multiple sites Prescriptions: No Action omeprazole 40 mg Capsule,Delayed Release(Dr/Ec) 40 mg PO DAILY aspirin [Aspir-81] 81 mg Tablet,Delayed Release (Dr/Ec) 81 mg PO DAILY glimepiride 4 mg Tablet 4 mg PO DAILY Patient Comments: was told today by Dr Puri to stop taking pioglitazone 30 mg Tablet 30 mg PO DAILY rosuvastatin 10 mg Tablet 10 mg PO DAILY insulin glargine [Lantus Solostar U-100 Insulin] 100 unit/mL (3 mL) insulin pen 20 unit SUBCUT DAILY Patient Comments: USE 20 UNITS SUBCUTANEOUSLY ONCE A DAY IF SUGAR LEVELS ARE OVER 200 IN THE MORNING BEFORE BREAKFAST states hasn't had insulin since he had chemo potassium chloride 10 mEq tablet extended release 10 meq PO BID acyclovir 400 mg tablet 400 mg PO BID hydrochlorothiazide 12.5 mg tablet 12.5 mg PO DAILY Slow-Mag 71.5 mg tablet,delayed release (DR/EC) 71.5 mg PO BID azithromycin 250 mg tablet 250 mg PO UD Patient Comments: has not started yet mirtazapine 15 mg tablet 15 mg PO QHS amoxicillin-pot clavulanate 875-125 mg tablet 1 tab PO BID Patient Comments: has not started yet ondansetron HCl 8 mg tablet 8 mg PO Q8H PRN (Reason: nausea and vomiting) Patient Comments: TAKE 1 TABLET BY MOUTH EVERY 8 HOURS NEEDED FOR NAUSEA AND VOMITING prochlorperazine maleate 10 mg tablet 10 mg PO Q6H PRN (Reason: nausea and vomiting) Patient Comments: TAKE 1 TABLET BY MOUTH EVERY 6 HOURS NEEDED mometasone 50 mcg/actuation spray,non-aerosol 2 spray INTRANASAL DAILY Patient Comments: USE 1 SPRAY(S) IN EACH NOSTRIL TWICE DAILY zolpidem 10 mg tablet 10 mg PO QHS PRN PRN (Reason: sleep) Patient Comments: TAKE 1 TABLET BY MOUTH AT BEDTIME Primary Care Provider: Chaitanya Puri Referrals: Chaitanya Puri MD [Primary Care Provider] - Print Language: Japanese Disposition Disposition: Acute Care Hospital [facility] What to do if you have Problems For any increased pain, shortness of breath, bleeding, nausea or vomiting, chestpain, or any unexpected problems, contact your Primary Care Provider. Call [facility] ([phone]) or report to the closest Emergency Room. Call 911 if necessary. 01/09/25 1646 <Electronically signed by Alexandro Dillard> Cosigner Signature (if applicable): CC: Dr. Chaitanya Puri MD ~ Signed [facility] Work Phone: [phone]) 136-591907-14-2025 Telephone encounter Note* Telephone Encounter - Dayami Puri MD - 01/09/2025 12:19 PM EDT Report called to [facility] ED. [facility]07-14-2025 Miscellaneous Notes* Telephone Encounter - Dayami Puri MD - 01/09/2025 12:19 PM EDT Report called to [facility] ED. * Telephone Encounter - Trinh Willett MA - 01/09/2025 11:20 AM EDT Patient informed and verbalized understanding. Will head over to [facility]. He states his is not home so it'll probably afternoon when he goes. Trinh Willett MA * Telephone Encounter - Trinh Willett MA - 01/09/2025 11:17 AM EDT ----- Message from Dayami Puri MD sent at 01/09/2025 10:34 AM EDT ----- Patient's CBC shows very high WBC and neutrophil count consistent with infection. His chest xray actually shows possible pneumonia in the left lung instead of the right. With his WBC being so high, HR being elevated >110, and a source of infection he meets criteria for sepsis. His CMP is still pending, but I would recommend he be evaluated in the ER and admitted for IV antibiotics and IV fluids for sepsis. If he goes to a [facility] ER such as [facility], they will be able to see our records. If going to [facility], will need to fax results and office note. Let me know what he says and where he will be going so I can update the hospital. [facility] Tele[facility] encounter Note * Telephone Encounter - Trinh Willett MA - 01/09/2025 11:20 AM EDT Patient informed and verbalized understanding. Will head over to [facility]. He states his is not home so it'll probably afternoon when he goes. Trinh Willett MA [facility]07-14-2025 Telephone encounter Note* Telephone Encounter - Trinh Willett MA - 01/09/2025 11:17 AM EDT ----- Message from Dayami Puri MD sent at 01/09/2025 10:34 AM EDT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 understanding of when to seek Medical Attention? YES Patient verbalizes understanding of after hours and weekend phone number? YES Patient verbalizes understanding of next outreach appointment? YES Jocelin Beach RN documented in this encounterAdena Health System06-26-2025 Telephone encounter Note * Telephone Encounter - Jocelin Beach RN - 12/22/2024 4:21 PM EDT Spoke to and informed her of Dr. Bar's response, stated understanding. stated patient has not had a BM since yesterday and feels he is constipated. Discussed increasing fluids, activity, fiber, and can try a stool softener or miralax. Hold imodium. instructed to call if patient does not have a BM after trying discussed interventions. denies abdominal pain. Jocelin Beach RN [facility]06-26-2025 Telephone encounter Note* Telephone Encounter - Bhavna Pritchett - 12/22/2024 4:19 PM EDT Jocelin and Evita must have been documenting at same time. I will take care of appointments and contact spouse. [facility]06-26-2025 Telephone encounter Note* Telephone Encounter - Bhavna Pritchett - 12/22/2024 4:14 PM EDT Spouse called back. Care Coord rang busy. Please call patient. [facility]06-26-2025 Telephone encounter Note* Telephone Encounter - Jocelin Beach RN - 12/22/2024 4:[address] Bar, okay to cancel all appointments up to his next OV with Dr. Bar on 02/14. Patient stated yesterday that he is declining further chemotherapy. Called patient to inform him of this, his answered the phone. stated she needed to call our office back. Message was not given to . When she calls back, please let her know that Dr. Bar stated he will see him at his next scheduled appointment in January. We are cancelling chemotherapy at this time. Thank you. Jocelin Beach RN [facility]06-25-2025 Telephone encounter Note* Telephone Encounter - Jocelin Beach RN - 12/21/2024 11:10 AM EDT EMERGENCY ROOM CALL BACK Today's date: December 21, 2024 Patient identified by name and date of . 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 Patient was onhis way to the ED. Patient with any new symptom issues: No Psychosocial Risk Factors: None FOLLOW UP Patient reminded of her follow-up appointment with [facility] provider, ALLIE- patient is declining any further chemotherapy. Next It Quality Analyst outreach with patient scheduled? TBD Discussed: Patient stated he went to the ED d/t vomiting and diarrhea. Patient stated he is doing the best I can today. Patient was able to drink a small glass of OJ and hot chocolate with marshmallows and part of a cookie. Everything just tastes so bad and when I get something, it's really hard choking it down. Patient stated his last episode of emesis was yesterday AM and last episode of diarrhea was yesterday. Patient has taken 1 tablet of imodium today. Denies fever, chills, dizzinesswith standing, decreased urine output, or dark urine. Patient stated he is drinking water, yolanda ramiro or patricia mist. Patient stated he is feeling better today. Patient will continue utilizing zofranand imodium/lomotil as needed. PATIENT EDUCATION/REINFORCEMENT Patient verbalizes understanding of when to seek Medical Attention? YES Patient verbalizes understanding of after hours and weekend phone number? YES Patient verbalizes understanding of next outreach appointment? YES Jocelin Beach RN [facility]06-24-2025 [id number] (AGENT OF COVID-19) RNA: Not detected INFLUENZA A RNA: Not detected INFLUENZA B RNA: Not detected RESPIRATORY SYNCYTIAL VIRUS (RSV) RNA: Not detectedMedina HospitalComment on above:Performed By: #### [id number] ####[facility] LABORATORYCLIA [id number] [place] [address] [facility]06-24-2025 Telephone encounter Note* Telephone Encounter - Kimberly Diaz - 12/20/2024 8:11 AM EDT Patients spouse called to cancel appointments due to patient being very ill. Spouse stated she is taking him to [facility] now. Kimberly Diaz [facility]06-24-2025 Miscellaneous Notes* Telephone Encounter - Kimberly Diaz - 12/20/2024 8:11 AM EDT Patients spouse called to cancel appointments due to patient being very ill. Spouse stated she is taking him to [facility] now. Kimberly Diaz documented in this encounterAdena Health System06-23-2025 Telephone encounter Note * Telephone Encounter - Jackie Noyola RN - 12/19/2024 12:23 PM EDT [place] Care Coordination FOLLOW-UP NOTE Patient identified by name and date of . YES Spoke to spouse Summary: (Reason for follow-up) Call to patient, spoke with spouse, Dionne. States she feels he is doing a little better. He had some breakfast/tea this am. Tolerating well. States she started the Lomotil alt with Imodium on Thursday and continued through W/E, did not wake patient up during the night. She couldn't really recall how many episode he had over the weekend but felt it was getting better. He did have an 1 episode of diarrhea during the night and gave him Imodium this am and will alt with Lomotil again today. Had nausea last pm, 1 episode of emesis, took Zofran, helped. Denies fever/chills or other concerns. She also asks about the Acyclovir Rx that was also sent in. Patient started that on Thursday. Explained that it is given as a preventative. Spouse states understanding. Reviewed upcoming appointment tomorrow. Patient verbalized when to seek Medical Attention and an understanding of after- hours phone numberand process: Yes Care Coordination Plan: Has lab/OV tomorrow at 815am. Jackie Noyola RN December 19, 2024 [facility] Work Phone: [phone]) 946-561406-23-2025 Miscellaneous Notes* Telephone Encounter - Jackie Noyola RN - 12/19/2024 12:23 PM EDT [place] Care Coordination FOLLOW-UP NOTE Patient identified by name and date of . YES Spoke to spouse Summary: (Reason for follow-up) Call to patient, spoke with spouse, Dionne. States she feels he is doing a little better. He had some breakfast/tea this am. Tolerating well. States she started the Lomotil alt with Imodium on Thursday and continued through W/E, did not wake patient up during the night. She couldn't really recall how many episode he had over the weekend but felt it was getting better. He did have an 1 episode of diarrhea during the night and gave him Imodium this am and will alt with Lomotil again today. Had nausea last pm, 1 episode of emesis, took Zofran, helped. Denies fever/chills or other concerns. She also asks about the Acyclovir Rx that was also sent in. Patient started that on Thursday. Explained that it is given as a preventative. Spouse states understanding. Reviewed upcoming appointment tomorrow. Patient verbalized when to seek Medical Attention and an understanding of after- hours phone numberand process: Yes Care Coordination Plan: Has lab/OV tomorrow at 815am. Jackie Noyola RN December 19, 2024 documented in this encounterAdena Health System06-20-2025 Telephone encounter Note * Telephone Encounter - Sindy Luna LPN - 12/16/2024 2:28 PM EDT Spoke with pt. Given instructions Advise 2 tabs of Lomotil alternating with 2 tabs Imodium every 6 hours until diarrhea ceases for 12 hours. If needs ED, then [facility] . Also sent info to pt. Via my chart so he knows exactly what he is looking for as far as the imodiumgoes and is clear on instructions. Sindy Luna LPN [facility]06-20-2025 Miscellaneous Notes* Telephone Encounter - Sindy Luna LPN - 12/16/2024 2:28 PM EDT Spoke with pt. Given instructions Advise 2 tabs of Lomotil alternating with 2 tabs Imodium every 6 hours until diarrhea ceases for 12 hours. If needs ED, then [facility] . Also sent info to pt. Via my chart so he knows exactly what he is looking for as far as the imodiumgoes and is clear on instructions. Sindy Luna LPN * Telephone Encounter - Aarti Bar DO - 12/16/2024 2:09 PM EDT He is an intermediate metabolizer of irinotecan. It was dose reduced for cycle #1. Advise 2 tabs ofLomotil alternating with 2 tabs Imodium every 6 hours until diarrhea ceases for 12 hours. If needs ED, then [facility]. Aarti Bar DO * Telephone Encounter - Jackie Noyola RN - 12/16/2024 1:45 PM EDT [place] Care Coordination FOLLOW-UP NOTE Patient identified by name and date of . YES Spoke to spouse for update on patient symptoms. Summary: (Reason for follow-up) Call to patient, spoke with . States he is continuing to have diarrhea. 3 episodes during the night. She doesn't think he took Imodium then. He had another this am, took 2 Imodium and then another later but did not take Imodium. Reviewed Imodium dosing and encouraged to take per instructions. (2 tbs w/ 1st episode and 1 after each additional loose/watery stool, no more than 8/24 hour period).She states understanding. States he is very weak and has no strength in his legs. Nausea/emesis x 1 last pm. Took Zofran and none since. Drinking a little more today, mostly Sprite, unable to tell me how much. Yesterday after home from infusion, had 2 hard boiled eggs. Today, small pancake for breakfast and granola bar for lunch, sipping on Sprite. Talked through other ideas to eat/drink, juice, gaterade, decaf options, buttered noodles, chicken noodle soup, jello, berries, banannas, bland food, easy to chew and digest. Avoid dairy. She states understanding. Advised ED if continues with diarrhea along with above dosing of Imodium, fever/chills, signs of dehydration. Call 911 if needed and too weak to ambulate to car. She states understanding and agrees. Patient verbalized when to seek Medical Attention and an understanding of after- hours phone numberand process: Yes Care Coordination Plan: Will follow up on 12/19/24 Jackie Noyola RN December 16, 2024 documented in this encounterAdena Health System06-20-2025 Telephone encounter Note * Telephone Encounter - Aarti Bar DO - 12/16/2024 2:09 PM EDT He is an intermediate metabolizer of irinotecan. It was dose reduced for cycle #1. Advise 2 tabs ofLomotil alternating with 2 tabs Imodium every 6 hours until diarrhea ceases for 12 hours. If needs ED, then [facility]. Aarti Bar DO [facility]06-20-2025 Telephone encounter Note* Telephone Encounter - Jackie Noyola RN - 12/16/2024 1:45 PM EDT [facility] Care Coordination FOLLOW-UP NOTE Patient identified by name and date of . YES Spoke to spouse for update on patient symptoms. Summary: (Reason for follow-up) Call to patient, spoke with . States he is continuing to have diarrhea. 3 episodes during the night. She doesn't think he took Imodium then. He had another this am, took 2 Imodium and then another later but did not take Imodium. Reviewed Imodium dosing and encouraged to take per instructions. (2 tbs w/ 1st episode and 1 after each additional loose/watery stool, no more than 8/24 hour period).She states understanding. States he is very weak and has no strength in his legs. Nausea/emesis x 1 last pm. Took Zofran and none since. Drinking a little more today, mostly Sprite, unable to tell me how much. Yesterday after home from infusion, had 2 hard boiled eggs. Today, small pancake for breakfast and granola bar for lunch, sipping on Sprite. Talked through other ideas to eat/drink, juice, gaterade, decaf options, buttered noodles, chicken noodle soup, jello, berries, banannas, bland food, easy to chew and digest. Avoid dairy. She states understanding. Advised ED if continues with diarrhea along with above dosing of Imodium, fever/chills, signs of dehydration. Call 911 if needed and too weak to ambulate to car. She states understanding and agrees. Patient verbalized when to seek Medical Attention and an understanding of after- hours phone numberand process: Yes Care Coordination Plan: Will follow up on 12/19/24 Jackie Noyola RN December 16, 2024 [facility] Work Phone: 1(184) 562-768406-19-2025 Telephone encounter Note* Telephone Encounter - Kimberly Diaz - 12/15/2024 11:08 AM EDT Scheduled as requested Kimberly Diaz [facility]06-19-2025 Miscellaneous Notes* Telephone Encounter - Kimberly Diaz - 12/15/2024 11:08 AM EDT Scheduled as requested Kimberly Diaz * Telephone Encounter - Aarti Bar DO - 12/15/2024 11:03 AM EDT Lab and beacon orders filed. * Telephone Encounter - Jackie Noyola RN - 12/15/2024 10:39 AM EDT PSS: please make appointment upstairs for labs(port)/hydration. labs pended. Melvi Noyola RN * Telephone Encounter - Jackie Noyola RN - 12/15/2024 10:[address] Bar would like fluids today and will place beacon orders. labs: CBC/possible transfusion, BMP, Mg Melvi Noyola RN Call to patricia Hernandez for patient to come in at this time. Will do hydration upstairs. Call to spouse, aware of labs/hydration and appointment will be upstairs. She states they have beenup there before. They will leave house at this time. Melvi Noyola RN * Telephone Encounter - Jackie Noyola RN - 12/15/2024 10:04 AM EDT Care Coordination Triage Note [facility] [place] Situation: Patient reports Appetite/Weight symptoms , Bowel symptoms, and Nausea/Vomiting Background: Colon w/ mets, C1 Folfori/Avastin 12/05/24 Assessment: Call to spouseDionne. Patient with diarrhea since Thursday. 2 episodes daily, taking dose of Imodium after each episode. Upset stomach, nausea, no emesis. Took Zofran last pm. Has not taken any today. Encouraged to use asprescribed every 8 hours. Poor appetite, not eating much, unable to tell me what he ate yesterday. well, it goes right through him. Decreased fluid intake. Drinking water and Gingerale, about 1.5 cups total yesterday. Encouraged to increase fluid intake but not sure that patient is willing to do that. Spouse aware that patient is going to get dehydrated if he doesn't increase his fluids and shestates yeah, I know She seems discouraged by patient status and also states he doesn't want to get anymore treatment. Patient states he is not light-headed or dizzy but when I asked spouse if he seems stable on feet when he is ambulating, she states no. She is aware that I will update Dr. Bar and call her back. They live about 15 minutes away and she thinks he would be willing to come in for hydration. Recommendations: Per RNCC, patient directed to: Manage at home. Instructions provided. Will update Dr. Bar and call back with further instructions. Jackie Noyola RN December 15, 2024 10:04 AM * Telephone Encounter - Kimberly Diaz - 12/15/2024 9:22 AM EDT Patients spouse called statin patient has diarrhea and upset stomach and is not wanting to continuewith treatment anymore. Unable to reach clinical at this time. Please call spouse Dionne. Kimberly Diaz documented in this encounterAdena [facility] System06-19-2025 Telephone encounter Note * Telephone Encounter - Aarti Bar DO - 12/15/2024 11:03 AM EDT Lab and beacon orders filed. [facility]06-19-2025 Telephone encounter Note* Telephone Encounter - Jackie Noyola RN - 12/15/2024 10:39 AM EDT PSS: please make appointment upstairs for labs(port)/hydration. labs pended. Melvi Noyola RN [facility]06-19-2025 Telephone encounter Note* Telephone Encounter - Jackie Noyola RN - 12/15/2024 10:[address] Bar would like fluids today and will place beacon orders. labs: CBC/possible transfusion, BMP, Mg Melvi Noyola RN Call to patricia Hernandez for patient to come in at this time. Will do hydration upstairs. Call to spouse, aware of labs/hydration and appointment will be upstairs. She states they have beenup there before. They will leave house at this time. Melvi Noyola RN [facility]06-19-2025 Telephone encounter Note* Telephone Encounter - Jackie Noyola RN - 12/15/2024 10:04 AM EDT Care Coordination Triage Note [facility] [place] Situation: Patient reports Appetite/Weight symptoms , Bowel symptoms, and Nausea/Vomiting Background: Colon w/ mets, C1 Folfori/Avastin 12/05/24 Assessment: Call to spouseDionne. Patient with diarrhea since Thursday. 2 episodes daily, taking dose of Imodium after each episode. Upset stomach, nausea, no emesis. Took Zofran last pm. Has not taken any today. Encouraged to use asprescribed every 8 hours. Poor appetite, not eating much, unable to tell me what he ate yesterday. well, it goes right through him. Decreased fluid intake. Drinking water and Gingerale, about 1.5 cups total yesterday. Encouraged to increase fluid intake but not sure that patient is willing to do that. Spouse aware that patient is going to get dehydrated if he doesn't increase his fluids and shestates yeah, I know She seems discouraged by patient status and also states he doesn't want to get anymore treatment. Patient states he is not light-headed or dizzy but when I asked spouse if he seems stable on feet when he is ambulating, she states no. She is aware that I will update Dr. Bar and call her back. They live about 15 minutes away and she thinks he would be willing to come in for hydration. Recommendations: Per RNCC, patient directed to: Manage at home. Instructions provided. Will update Dr. Bar and call back with further instructions. Jackie Noyola RN December 15, 2024 10:04 AM [facility]06-19-2025 Telephone encounter Note* Telephone Encounter - Kimberly Diaz - 12/15/2024 9:22 AM EDT Patients spouse called statin patient has diarrhea and upset stomach and is not wanting to continuewith treatment anymore. Unable to reach clinical at this time. Please call spouse Dionne. Kimberly Diaz [facility]06-10-2025 Telephone encounter Note* Telephone Encounter - Jocelin Beach RN - 12/06/2024 9:40 AM EDT CYCLE 1/DAY 1 POST TREATMENT CALL Today's date: December 06, 2024 Treatment Regimen: Folfiri C1D1 Date: 12/05/2024 Called patient to follow-up on symptom management. Spoke with patient SYMPTOM ASSESSMENT Neuro: Numbness/Weakness/Tingling: legs are weak with sitting down and standing up. Visual Changes: has occasional blurry vision. Once in awhile I have sensitivity to light. Had an eye exam 2 months ago and was informed he has cataracts. CV/Resp: Patient stated he had a respiratory infection recently and will occasionally lose his voice. Deniescough/SOB. GI/: Appetite: no changes in appetite, appetite fair Denies N/V/D Integument: None Activity: Patient reported no changes in energy level, energy level fair Pain: No=0 (pain 0 on a scale of 0-10). Fever: No Chills: No Patient stated he is feeling better today. Patient stated he doesn't have pain in his hips anymore. Any new referrals needed? No Reinforced CURRENT treatment education based on current and anticipated symptoms. Discussed port/line care and patient verbalizes understanding: Yes Patient instructed to contact office or after hours Hematology/Oncology fellow for: temperature >= 100.4; questions or concerns. Patient verbalized understanding of when to seek medical attention and after hours number protocol. Jocelin Beach RN [facility]06-10-2025 Miscellaneous Notes* Telephone Encounter - Jocelin Beach RN - 12/06/2024 9:40 AM EDT CYCLE 1/DAY 1 POST TREATMENT CALL Today's date: December 06, 2024 Treatment Regimen: Folfiri C1D1 Date: 12/05/2024 Called patient to follow-up on symptom management. Spoke with patient SYMPTOM ASSESSMENT Neuro: Numbness/Weakness/Tingling: legs are weak with sitting down and standing up. Visual Changes: has occasional blurry vision. Once in awhile I have sensitivity to light. Had an eye exam 2 months ago and was informed he has cataracts. CV/Resp: Patient stated he had a respiratory infection recently and will occasionally lose his voice. Deniescough/SOB. GI/: Appetite: no changes in appetite, appetite fair Denies N/V/D Integument: None Activity: Patient reported no changes in energy level, energy level fair Pain: No=0 (pain 0 on a scale of 0-10). Fever: No Chills: No Patient stated he is feeling better today. Patient stated he doesn't have pain in his hips anymore. Any new referrals needed? No Reinforced CURRENT treatment education based on current and anticipated symptoms. Discussed port/line care and patient verbalizes understanding: Yes Patient instructed to contact office or after hours Hematology/Oncology fellow for: temperature >= 100.4; questions or concerns. Patient verbalized understanding of when to seek medical attention and after hours number protocol. Jocelin Beach RN documented in this encounterAdena Health System06-09-2025 Telephone encounter Note * Telephone Encounter - Denae Carbone LPN - 12/05/2024 1:59 PM EDT Patient aware. Denae Carbone LPN [facility]06-09-2025 Miscellaneous Notes* Telephone Encounter - Denae Carbone LPN - 12/05/2024 1:59 PM EDT Patient aware. Denae Carbone LPN * Telephone Encounter - Aarti Bar DO - 12/05/2024 1:36 PM EDT Phosphorus is low. May explain some of the leg pain. Advise K-Phos twice daily x 1 week. Should be taken 4 hours apart from magnesium supplement. documented in this encounterAdena Health System06-09-2025 Telephone encounter Note * Telephone Encounter - Aarti Bar DO - 12/05/2024 1:36 PM EDT Phosphorus is low. May explain some of the leg pain. Advise K-Phos twice daily x 1 week. Should be taken 4 hours apart from magnesium supplement. [facility]06-09-2025 Telephone encounter Note* Telephone Encounter - Denae Carbone LPN - 12/05/2024 1:06 PM EDT Labs added on. Denae Carbone LPN [facility]06-09-2025 Miscellaneous Notes* Telephone Encounter - Denae Carbone LPN - 12/05/2024 1:06 PM EDT Labs added on. Denae Carbone LPN * Telephone Encounter - Aarti Bar DO - 12/05/2024 12:58 PM EDT Check phosphorus and CK level if he is still here. * Telephone Encounter - Mary Conway RN - 12/05/2024 9:53 AM EDT Patient is requesting prescription for bilateral leg pain; pain with ambulation. Rated 6/10 aching in nature x 1week. No redness/warmth noted. documented in this encounterAdena Health System06-09-2025 Telephone encounter Note * Telephone Encounter - Aarti Bar DO - 12/05/2024 12:58 PM EDT Check phosphorus and CK level if he is still here. [facility]06-09-2025 Telephone encounter Note* Telephone Encounter - Mary Conway RN - 12/05/2024 9:53 AM EDT Patient is requesting prescription for bilateral leg pain; pain with ambulation. Rated 6/10 aching in nature x 1week. No redness/warmth noted. [facility]06-04-2025 NoteHNO ID: [id number] Author: HEATHER AGUILAR RN Service: ? Author Type: Registered Nurse Type: Progress Notes Filed: 11/30/2024 14:49 Note Text: Held TX until 12/[address] bar. Pt is starting antibiotics.[facility]06-04-2025 History of Present illness Narrative* Heather Aguilar RN - 11/30/2024 11:40 AM EDT Held TX until 12/[address] bar. Pt is starting antibiotics. documented in this encounterAdena Health System05-28-2025 Telephone encounter Note * Telephone Encounter - Bhavna Pritchett - 11/23/2024 1:29 PM EDT Schedule updated [facility] Work Phone: 1(780) 717-924105-28-2025 Miscellaneous Notes* Telephone Encounter - Bhavna Pritchett - 11/23/2024 1:29 PM EDT Schedule updated * Telephone Encounter - Kimberly Diaz - 11/23/2024 11:53 AM EDT Scheduled next treatment with patient. Remainder will need scheduled Kimberly Diaz * Telephone Encounter - Denae Carbone LPN - 11/23/2024 11:04 AM EDT PSS- Per Dr. Bar- delay treatment X 1 week. Entire schedule will have to be adjusted. Patient is scheduled for 2 units PRBC 11/24/2024 @ [facility]. Orders faxed. Patient and lab aware. Denae Carbone LPN documented in this encounterAdena Health System05-28-2025 Telephone encounter Note * Telephone Encounter - Bhavna Pritchett - 11/23/2024 1:14 PM EDT Received call from [employer] with authorization # [id number] for Fulphila 6 mg every 14 days for 9 doses. Auth good from 09/30/24 to 01/27/25. [facility] Work Phone: 1(354) 605-938005-28-2025 Miscellaneous Notes* Telephone Encounter - Bhavna Pritchett - 11/23/2024 1:14 PM EDT Received call from [employer] with authorization # [id number] for Fulphila 6 mg every 14 days for 9 doses. Auth good from 09/30/24 to 01/27/25. documented in this encounterAdena Health System05-28-2025 Telephone encounter Note * Telephone Encounter - Kimberly Diaz - 11/23/2024 11:53 AM EDT Scheduled next treatment with patient. Remainder will need scheduled Kimberly Diaz [facility]05-28-2025 Telephone encounter Note* Telephone Encounter - Denae Carbone LPN - 11/23/2024 11:04 AM EDT PSS- Per Dr. Bar- delay treatment X 1 week. Entire schedule will have to be adjusted. Patient is scheduled for 2 units PRBC 11/24/2024 @ [facility], [facility]. Orders faxed. Patient and lab aware. Denae Carbone LPN [facility]05-28-2025 NoteR[facility] Institute05-28-2025 History of Present illness Narrative* Vero Lauren RN - 11/23/2024 10:46 AM EDT Collaborated with Dr. Bar on Dipti' symptoms/labs. Dipti describes himself as not well Increased fatigue 01/05 and sleeping a lot more, has had a significant change in his taste- describes it as spoiled, increased nausea and aversion to food, says appetite went from fair to poor in the last two weeks, poor fluid intake, son states he has been holding his head a lot but dipti denies headaches. Labs resulted and Hg was 6.8. Per Dr. Bar, hold chemotherapy treatment today and will need 2 units RBC 11/24/24, delay treatment 1 week, will not hydrate today due to low Hg. documented in this encounterAdena [facility] System05-19-2025 Telephone encounter Note * Telephone Encounter - Aarti Bar DO - 11/14/2024 2:20 PM EDT Yes. [facility]05-19-2025 Miscellaneous Notes* Telephone Encounter - Aarti Bar DO - 11/14/2024 2:20 PM EDT Yes. * Telephone Encounter - Bhavna Pritchett - 11/14/2024 1:52 PM EDT OK for straightback for 01/04 treatment due to change in [facility] template? documented in this encounterAdena Health System05-19-2025 Telephone encounter Note * Telephone Encounter - Bhavna Pritchett - 11/14/2024 1:52 PM EDT OK for straightback for 01/04 treatment due to change in [employer]onda[employer] template? [facility] Work Phone: 1(237) 510-564205-19-2025 Telephone encounter Note* Telephone Encounter - Lacey Rubio - 11/14/2024 9:12 AM EDT Prescription Refill Information The patient has been identified by name and date of : Yes Caregiver verified no other encounters exist for this prescription request: Yes Caregiver confirmed with patient/requestor that no other refills are due, in the near future, with this provider at this time: Yes The last office visit in the department: 07/11/2024 Does the patient have a future office visit with this provider/department: Yes Requested Prescriptions Pending Prescriptions Disp Refills hydroCHLOROthiazide 12.5 mg tablet 90 tablet 2 Sig: Take 1 tablet by mouth once daily. Lacey Nunez November 14, 2024 9:13 AM [facility]05-19-2025 Miscellaneous Notes* Telephone Encounter - Lacey Rubio - 11/14/2024 9:12 AM EDT Prescription Refill Information The patient has been identified by name and date of : Yes Caregiver verified no other encounters exist for this prescription request: Yes Caregiver confirmed with patient/requestor that no other refills are due, in the near future, with this provider at this time: Yes The last office visit in the department: 07/11/2024 Does the patient have a future office visit with this provider/department: Yes Requested Prescriptions Pending Prescriptions Disp Refills hydroCHLOROthiazide 12.5 mg tablet 90 tablet 2 Sig: Take 1 tablet by mouth once daily. Lacey Nunez November 14, 2024 9:13 AM documented in this encounterAdena Health System05-14-2025 Telephone encounter Note * Telephone Encounter - Jocelin Beach RN - 11/09/2024 9:58 AM EDT ONCOLOGY PATIENT EDUCATION NOTE TOPIC: Chemotherapy, Medications: Folfiri (changing from folfox) patient here today for education for treatment of Colon / Rectal Cancer Anticipated/Scheduled start date: TBD- next week READINESS TO LEARN: COGNITIVE ABILITY: Alert and oriented MOTIVATION TO LEARN: Interested FAMILY SUPPORT: High - Very involved in pt care INSTRUCTION PROVIDED TO: Patient and Family member INSTRUCTION PROVIDED BY: Nurse Coordinator PATIENT LEARNS BEST BY: Multiple Methods FACTORS AFFECTING LEARNING: None PHYSICAL LIMITATIONS AFFECTING LEARNING: None LEARNING RESPONSE METHOD OF INSTRUCTION: Individual instruction Written instruction/Handouts Verbal instruction PATIENT/FAMILY RESPONSE: Verbalizes understanding of: CHEMOTHERAPY-Regimen, toxicity and side effects FOLLOW UP PLAN: Patient instructed to call with any further issues Recommend - Recommend continued instruction and follow up as directed Follow up phone call. Contact information given. SUPPLEMENTAL MATERIAL: Written material was provided at this visit with the following information: - Chemotherapy education was provided by a pharmacist YES - Side effect management information was provided/discussed including but not limited to: anemia, appetite changes, arthralgia, bowel habit changes, diet, electrolyte disturbances, fatigue, hair loss, mouth hygiene, nausea/vomitting, thrombocytopenia YES - Provided important phone numbers and contacts during and after hours. YES - Provided information on symptoms that require immediate assistance. YES - Provided Chemotherapy when to call handouts YES - Preventing infection. YES - Treatment schedule and confirmation of appointment times. YES-- will be scheduled today at check out - Available support groups. YES - The importance of contraception during the course of chemotherapy YES - Neutropenic fever protocol discussed with patient, which included the importance of reporting anyfever of 100.4F (38.0C) or greater to the healthcare team as noted on the provided wallet card and/or magnet. YES-- handout given Time Spent: 5 minutes discussing irinotecan and diarrhea protocol. REFERRAL (RECOMMENDATION): N/A Jocelin Beach RN [facility]05-14-2025 Miscellaneous Notes* Telephone Encounter - Jocelin Beach RN - 11/09/2024 9:58 AM EDT ONCOLOGY PATIENT EDUCATION NOTE TOPIC: Chemotherapy, Medications: Folfiri (changing from folfox) patient here today for education for treatment of Colon / Rectal Cancer Anticipated/Scheduled start date: TBD- next week READINESS TO LEARN: COGNITIVE ABILITY: Alert and oriented MOTIVATION TO LEARN: Interested FAMILY SUPPORT: High - Very involved in pt care INSTRUCTION PROVIDED TO: Patient and Family member INSTRUCTION PROVIDED BY: Nurse Coordinator PATIENT LEARNS BEST BY: Multiple Methods FACTORS AFFECTING LEARNING: None PHYSICAL LIMITATIONS AFFECTING LEARNING: None LEARNING RESPONSE METHOD OF INSTRUCTION: Individual instruction Written instruction/Handouts Verbal instruction PATIENT/FAMILY RESPONSE: Verbalizes understanding of: CHEMOTHERAPY-Regimen, toxicity and side effects FOLLOW UP PLAN: Patient instructed to call with any further issues Recommend - Recommend continued instruction and follow up as directed Follow up phone call. Contact information given. SUPPLEMENTAL MATERIAL: Written material was provided at this visit with the following information: - Chemotherapy education was provided by a pharmacist YES - Side effect management information was provided/discussed including but not limited to: anemia, appetite changes, arthralgia, bowel habit changes, diet, electrolyte disturbances, fatigue, hair loss, mouth hygiene, nausea/vomitting, thrombocytopenia YES - Provided important phone numbers and contacts during and after hours. YES - Provided information on symptoms that require immediate assistance. YES - Provided Chemotherapy when to call handouts YES - Preventing infection. YES - Treatment schedule and confirmation of appointment times. YES-- will be scheduled today at check out - Available support groups. YES - The importance of contraception during the course of chemotherapy YES - Neutropenic fever protocol discussed with patient, which included the importance of reporting anyfever of 100.4F (38.0C) or greater to the healthcare team as noted on the provided wallet card and/or magnet. YES-- handout given Time Spent: 5 minutes discussing irinotecan and diarrhea protocol. REFERRAL (RECOMMENDATION): N/A Jocelin Beach RN documented in this encounterAdena Health System05-14-2025 History of Present illness Narrative* Aarti Bar DO - 11/09/2024 9:30 AM EDT Oncologic problem(s): 1) Metastatic adenocarcinoma of the cecum. HPI: The patient is a 78-year-old male with a past medical history as outlined below. Had a colonoscopy in 2019 during which evidently showed one polyp. Had about 2 year history right abdominal pain. Insomnia. Had work up [facility] 02/2022. Admitted to [facility] in September 2023 with hemoglobin of 5.5 g/dL and black tarry stools. Got 3 units RBCs and IV iron. CTA 10/20/2023: 1. No acute pulmonary emboli. 2. There is a mass in the cecum measuring approximately 6.7 cm in greatest dimension consistent with colon cancer. There are a few mildly enlarged mesenteric lymph nodes in the right lower quadrant likely representing local metastatic rolando disease. 3. Multiple ill-defined low-density metastatic lesions in the liver. 4. Numerous metastatic nodules and masses throughout both lungs. A few of these lesions abut the pleural surface but do not clearly invade into the chest wall. 5. Hazy ground-glass density throughout the lungs likely related to pulmonary edema. No pleural effusion. 6. There are a few small to borderline enlarged mediastinal and hilar lymph nodes that are nonspecific. Colonoscopy 10/20/2023: A frond-like/villous non-obstructing large mass was found in the cecum. No bleeding was present. Biopsies were taken with a cold forceps for histology. Multiple small and large-mouthed diverticula were found in the sigmoid colon and descending colon. External hemorrhoids were found. The hemorrhoids were small. EGD was unremarkable. Underwent robotic right hemicolectomy, small bowel resection, liver biopsy and port placement on 10/21/2023. COLON: ADENOCARCINOMA Procedure: Right hemicolectomy Macroscopic evaluation of mesorectum (for rectal cancer): Not applicable Tumor site: Cecum Histologic type: Adenocarcinoma Histologic grade: G2: Moderately differentiated Tumor size: 10 cm Multiple primary sites: Not applicable (no additional primary sites present) Tumor extent: Directly invades or adheres to adjacent structure(s): Small bowel Submucosal Invasion (for pT1 tumors only) Not applicable (not a pT1 tumor) Macroscopic tumor perforation: Not identified Lymphatic and/or vascular invasion: Not identified Perineural invasion: Not identified Tumor budding score: High (10 or more) Treatment effect: No known presurgical therapy Margins: Margin status for invasive carcinoma: All margins negative for invasive carcinoma Margin status for non-invasive tumor: All margins negative for high-grade dysplasia / intramucosal carcinoma and low-grade dysplasia Regional lymph nodes: Regional lymph node status: Tumor present in regional lymph node(s) Number of lymph nodes with tumor: 2 Number of lymph nodes examined: 31 Tumor deposits: Present (count = 1) Distant site(s) involved: Liver AJCC 8th edition pathologic stage: Modified Classification: Not applicable pT4b pN1b pM1a MMR Studies (performed on current case) MLH1: Intact protein expression. MSH2: Intact protein expression. MSH6: Intact protein expression. PMS2: Intact protein expression. A. Liver, biopsy: Adenocarcinoma, morphologically consistent with metastatic colonic primary. B. Colon, right hemicolectomy: Invasive moderately differentiated adenocarcinoma. See synoptic report. PET 11/25/2023--demonstrated postsurgical changes in the abdomen. There are hypermetabolic bilaterallung masses and hypermetabolic right hilar adenopathy suspicious for metastatic disease. The largest of the bilateral lung masses measured up to 4.2 x 5.5 cm on the right. Multiple hypermetabolic liver masses measuring up to 4.1 were observed. Spleen size was noted to be borderline. No bone metastases observed. Per initial OV: Feeling much better. No pain. Bowels moving regularly. Mostly formed stools. Occasionally loose. No other GI symptoms. No longer short of breath. Past Medical History: Diabetes mellitus (HCC) Hyperlipidemia Hypertension Sleep apnea has a CPAP Past Surgical History: Procedure Laterality Date ANKLE ARTHROSCOPY W/ OPEN REPAIR Left 1967 APPENDECTOMY 1961 CARDIAC CATHETERIZATION N/A 02/10/2022 Procedure: Left Heart Cath Possbile PTCA/Stent; Surgeon: Baljinder Banegas MD; Location: [facility]; Service: Cardiovascular CARDIAC CATHETERIZATION N/A 02/10/2022 Procedure: Coronary Angiogram; Surgeon: Baljinder Banegas MD; Location: [facility]; Service: Cardiovascular CARDIAC CATHETERIZATION N/A 02/10/2022 Procedure: Instant Wave Free Ratio; Surgeon: Baljinder Banegas MD; Location: [facility]; Service: Cardiovascular CARDIAC CATHETERIZATION N/A 02/10/2022 Procedure: Fractional Flow Ruffin; Surgeon: Baljinder Banegas MD; Location: [facility]; Service: Cardiovascular COLONOSCOPY N/A 10/20/2023 Procedure: COLONOSCOPY with biopsy; Surgeon: Joe Rojas MD; Location: Endo; Service: Gastroenterology CT COLONOSCOPY 03/01/[address] COLONOSCOPY 07/16/2018 CT COLONOSCOPY EGD N/A 10/20/2023 Procedure: ESOPHAGOGASTRODUODENOSCOPY; Surgeon: Joe Rojas MD; Location: Endo; Service: Gastroenterology INSERTION SUBCUTANEOUS PORT N/A 10/21/2023 Procedure: INSERTION SUBCUTANEOUS PORT; Surgeon: Austen Hall MD; Location: Main OR; Service: [employer] KNEE ARTHROPLASTY Right 1999 MT LAPS COLECTOMY PRTL W/RMVL TERMINAL ILEUM Right 10/21/2023 Procedure: COLECTOMY RIGHT ROBOTIC XI AND SMALL BOWEL RESECTION WITH LYMPH NODE DISSECTION AND LIVER BIOPSY; Surgeon: Austen Hall MD; Location: Main OR; Service: [employer] Social History Marital status: Tobacco Use Smoking status: Smokeless tobacco: Never Vaping Use Vaping Use: Never used Substance and Sexual Activity Alcohol use: Never Drug use: Never Sexual activity: Not Currently Family History Problem Relation Age of Onset Heart attack Mother Sister had breast cancer and at age 53 Current therapy: 1) FOLFOX with meli. Following cycle #2 which was administered on 01/19, he had onset of nausea and vomiting 01/26. 2 episodes. Following that he had diarrhea. Symptoms abated somewhat but worsened and he went to the ER. Had a CT of the abdomen pelvis which redemonstrated metastatic disease to liver and lung. There were findings of right prior hemicolectomy with some inflammatory changes in the distal terminal ileum atthe site of anastomosis. He was given hydration and discharged home. All was due to a supplemental drink he was using. He stopped it and has not had any nausea since. Presents for ongoing oncologic management. Interim history: No subjective change. No symptoms of neuropathy. Taste is still off. Generalized fatigue. ROS: Constitutional: No fever. No drenching night sweats. Neuro: No recent SARAH, vertigo, dizziness or imbalance. HEENT: No recent change in voice, vision or hearing. Resp: No cough, wheeze of hemoptysis. No shortness of breath at rest. No FERNANDEZ. CVS: No exertional chest pain, PND or orthopnea. No extremity swelling/edema. GI: See HPI. : No dysuria or gross hematuria. Endo: No hot flashes. No polyuria or polydipsia. No heat or cold intolerance. Musculoskeletal: No bone, back, joint and muscular pain. Derm: No rash. Heme: No unusual bleeding and unexplained bruising. Psych: Normal mood. PHYSICAL EXAM: Vitals: Blood pressure 114/68, pulse 87, temperature 36.7 C (98.1 F), temperature source Temporal, weight 85.3 kg (188 lb), SpO2 95%. Well-appearing and in no acute distress. EYES: Sclerae are anicteric bilaterally. LYMPHATIC: There is no palpable cervical, supraclavicular adenopathy. CARDIOVASCULAR: Rhythm is regular. ABDOMEN: The abdomen is nondistended. SKIN: No jaundice. LABS: NGS/biomarkers/route driver mutation analyses: pMRR. KRAS mutation. HER2 BRAF [id number] intermediate metabolizer. 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 -PS is 90%. -Comorbid conditions: DM2 (no baseline neuropathy), hypertension, hyperlipidemia and BRYCE. -Tolerating FOLFOX with bevacizumab very well. -Blood pressure controlled. -History of iron deficiency received parenteral iron. -Hgb fluctuates, but no suggestion of TUNG. Secondary to chemotherapy. -CEA increased trend. -CTs reviewed. Stable to further minimal response and some of the lung metastases. PD liver. - Discussed rationale for Guardant since mixed response. -Recommended changing to FOLFIRI with bevacizumab. -I discussed the rationale, logistics, potential risks (including but not limited to fatigue, nausea vomiting, diarrhea, cytopenias, infections and the small potential for as a consequence of severe toxicity/complications of therapy), benefits and alternatives, as well as the personnel involved in the administration of FOLFIRI with bevacizumab. I answered his questions in detail and he verbalized understanding and agreed with the recommended therapy. Please see the electronic consent document for details of doses and schedule. -Plan to start irinotecan 150 mg/m due to being an intermediate metabolizer, anemia and history of diarrhea with FOLFOX. Plan: -Cancel therapy today. -Begin FOLFIRI bevacizumab in 2 weeks--allow more recovery from anemia. -Continue monitoring CEA. -Monitor urine monthly for proteinuria. -CTs following 4 cycles. -Continue oral potassium replacement and Slow-Mag 1 tablet daily. -Ongoing monitoring of electrolytes and magnesium. (D64.81, T45.1X5A) Anemia due to antineoplastic chemotherapy (Z86.39) History of iron deficiency (Z86.2) History of anemia due to vitamin B12 deficiency Assessment: -Anemia multifactorial but no evidence of iron deficiency at this time. He has been receiving monthly B12 injections. - Reviewed CBC. Hemoglobin 7.7 g/dL today. No indication for transfusion. Discussed rationale for waiting 2 weeks to start FOLFIRI with bevacizumab based on degree of anemia now. Plan: -CBC with each cycle. -Recheck iron levels as indicated. -Continue monthly B12 injection. -Periodic check of B12 level. Portions of this documentation were copied and pasted from my previous office visit note dated 10/12/2024 in order to provide a cohesive continuity of the history. The note has been reviewed and edited and updated as necessary. Aarti Bar DO documented in this encounterAdena Health System05-14-2025 NoteRiverview [facility] Institute05-13-2025 Telephone encounter Note* Telephone Encounter - Nima Anglin LPN - 11/08/2024 8:51 AM EDT Last filled by former PCP. Rx pending. Please review and file. Nima Anglin LPN [facility]05-13-2025 Miscellaneous Notes* Telephone Encounter - Nima Anglin LPN - 11/08/2024 8:51 AM EDT Last filled by former PCP. Rx pending. Please review and file. Nima Anglin LPN * Telephone Encounter - Silva Chacon - 11/07/2024 9:57 AM EDT Prescription Refill Information The patient has been identified by name and date of : Yes Caregiver verified no other encounters exist for this prescription request: Yes Caregiver confirmed with patient/requestor that no other refills are due, in the near future, with this provider at this time: Yes The last office visit in the department: 07/11/24 Does the patient have a future office visit with this provider/department: Yes 01/09/25 Requested Prescriptions Pending Prescriptions Disp Refills pioglitazone (ACTOS) 30 mg tablet 90 tablet 21 Sig: Take 1 tablet by mouth once daily. Silva Chacon November 07, 2024 9:57 AM documented in this encounterAdena Health System05-12-2025 Telephone encounter Note * Telephone Encounter - Silva Chacon - 11/07/2024 9:57 AM EDT Prescription Refill Information The patient has been identified by name and date of : Yes Caregiver verified no other encounters exist for this prescription request: Yes Caregiver confirmed with patient/requestor that no other refills are due, in the near future, with this provider at this time: Yes The last office visit in the department: 07/11/24 Does the patient have a future office visit with this provider/department: Yes 01/09/25 Requested Prescriptions Pending Prescriptions Disp Refills pioglitazone (ACTOS) 30 mg tablet 90 tablet 21 Sig: Take 1 tablet by mouth once daily. Silva Chacon November 07, 2024 9:57 AM [facility]05-07-2025 History of Present illness Narrative* Luisito Carbajal, RT(R) - 11/02/2024 9:00 AM EDT Radiology Service Progress Note PATIENT NAME: Dipti Sierra DATE OF SERVICE: November 02, 2024 TIME: 12:17 PM PATIENT IDENTITY VERIFICATION COMPLETED USING TWO (2) IDENTIFIERS: Name and Date of confirmedby patient verbally. FALL SCREENING: Has the patient had 2 falls in the last year or 1 fall with injury or currently using an Ambulatory Assistive Device (Walker, Cane, Wheelchair, Crutches, etc.)? No PATIENT GENDER DATA: Assigned male at PATIENT RELEVANT IMPLANT DATA REVIEWED: Yes PATIENT PRESENTS WITH AN IMPLANTABLE OR ATTACHED CASING MAN: No RADIOLOGY DEPARTMENT: CT; Exam(s) Completed: Chest Abdomen Pelvis PERIPHERAL IV DATA: power port accessed by hemoc SIGNED BY: RT Rosaura(R) November 02, 2024 12:17 PM documented in this encounterAdena Health System05-07-2025 NoteRiverview Health Institute04-16-2025 NoteHNO ID: [id number] Author: PATRICIA OWEN RN Service: ? Author Type: Registered Nurse Type: Progress Notes Filed: 10/12/2024 14:27 Note Text: OV prior to tx. Patricia Owen RNRiverview Health Institute04-16-2025 History of Present illness Narrative* Patricia Owen RN - 10/12/2024 11:32 AM EDT OV prior to tx. Patricia Owen RN documented in this encounterAdena Health System04-16-2025 NoteRiverview [facility] Institute04-16-2025 History of Present illness Narrative* Aarti Bar DO - 10/12/2024 10:28 AM EDT Oncologic problem(s): 1) Metastatic adenocarcinoma of the cecum. HPI: The patient is a 78-year-old male with a past medical history as outlined below. Had a colonoscopy in 2019 during which evidently showed one polyp. Had about 2 year history right abdominal pain. Insomnia. Had work up [facility] 02/2022. Admitted to [facility] in September with hemoglobin of 5.5 g/dL and black tarry stools. Got 3 units RBCs and IV iron. CTA 10/20/2023: 1. No acute pulmonary emboli. 2. There is a mass in the cecum measuring approximately 6.7 cm in greatest dimension consistent with colon cancer. There are a few mildly enlarged mesenteric lymph nodes in the right lower quadrant likely representing local metastatic rolando disease. 3. Multiple ill-defined low-density metastatic lesions in the liver. 4. Numerous metastatic nodules and masses throughout both lungs. A few of these lesions abut the pleural surface but do not clearly invade into the chest wall. 5. Hazy ground-glass density throughout the lungs likely related to pulmonary edema. No pleural effusion. 6. There are a few small to borderline enlarged mediastinal and hilar lymph nodes that are nonspecific. Colonoscopy 10/20/2023: A frond-like/villous non-obstructing large mass was found in the cecum. No bleeding was present. Biopsies were taken with a cold forceps for histology. Multiple small and large-mouthed diverticula were found in the sigmoid colon and descending colon. External hemorrhoids were found. The hemorrhoids were small. EGD was unremarkable. Underwent robotic right hemicolectomy, small bowel resection, liver biopsy and port placement on 10/21/2023. COLON: ADENOCARCINOMA Procedure: Right hemicolectomy Macroscopic evaluation of mesorectum (for rectal cancer): Not applicable Tumor site: Cecum Histologic type: Adenocarcinoma Histologic grade: G2: Moderately differentiated Tumor size: 10 cm Multiple primary sites: Not applicable (no additional primary sites present) Tumor extent: Directly invades or adheres to adjacent structure(s): Small bowel Submucosal Invasion (for pT1 tumors only) Not applicable (not a pT1 tumor) Macroscopic tumor perforation: Not identified Lymphatic and/or vascular invasion: Not identified Perineural invasion: Not identified Tumor budding score: High (10 or more) Treatment effect: No known presurgical therapy Margins: Margin status for invasive carcinoma: All margins negative for invasive carcinoma Margin status for non-invasive tumor: All margins negative for high-grade dysplasia / intramucosal carcinoma and low-grade dysplasia Regional lymph nodes: Regional lymph node status: Tumor present in regional lymph node(s) Number of lymph nodes with tumor: 2 Number of lymph nodes examined: 31 Tumor deposits: Present (count = 1) Distant site(s) involved: Liver AJCC 8th edition pathologic stage: Modified Classification: Not applicable pT4b pN1b pM1a MMR Studies (performed on current case) MLH1: Intact protein expression. MSH2: Intact protein expression. MSH6: Intact protein expression. PMS2: Intact protein expression. A. Liver, biopsy: Adenocarcinoma, morphologically consistent with metastatic colonic primary. B. Colon, right hemicolectomy: Invasive moderately differentiated adenocarcinoma. See synoptic report. PET 11/25/2023--demonstrated postsurgical changes in the abdomen. There are hypermetabolic bilaterallung masses and hypermetabolic right hilar adenopathy suspicious for metastatic disease. The largest of the bilateral lung masses measured up to 4.2 x 5.5 cm on the right. Multiple hypermetabolic liver masses measuring up to 4.1 were observed. Spleen size was noted to be borderline. No bone metastases observed. Per initial OV: Feeling much better. No pain. Bowels moving regularly. Mostly formed stools. Occasionally loose. No other GI symptoms. No longer short of breath. Past Medical History: Diabetes mellitus (HCC) Hyperlipidemia Hypertension Sleep apnea has a CPAP Past Surgical History: Procedure Laterality Date ANKLE ARTHROSCOPY W/ OPEN REPAIR Left 1967 APPENDECTOMY 1961 CARDIAC CATHETERIZATION N/A 02/10/2022 Procedure: Left Heart Cath Possbile PTCA/Stent; Surgeon: Baljinder Banegas MD; Location: [facility]; Service: Cardiovascular CARDIAC CATHETERIZATION N/A 02/10/2022 Procedure: Coronary Angiogram; Surgeon: Baljinder Banegas MD; Location: [facility]; Service: Cardiovascular CARDIAC CATHETERIZATION N/A 02/10/2022 Procedure: Instant Wave Free Ratio; Surgeon: Baljinder Banegas MD; Location: [facility]; Service: Cardiovascular CARDIAC CATHETERIZATION N/A 02/10/2022 Procedure: Fractional Flow Ruffin; Surgeon: Baljinder Banegas MD; Location: [facility]; Service: Cardiovascular COLONOSCOPY N/A 10/20/2023 Procedure: COLONOSCOPY with biopsy; Surgeon: Joe Rojas MD; Location: [facility]; Service: Gastroenterology CT COLONOSCOPY 03/01/[address] COLONOSCOPY 07/16/2018 CT COLONOSCOPY EGD N/A 10/20/2023 Procedure: ESOPHAGOGASTRODUODENOSCOPY; Surgeon: Joe Rojas MD; Location: Endo; Service: Gastroenterology INSERTION SUBCUTANEOUS PORT N/A 10/21/2023 Procedure: INSERTION SUBCUTANEOUS PORT; Surgeon: Austen Hall MD; Location: Main OR; Service: [employer] KNEE ARTHROPLASTY Right 1999 MT LAPS COLECTOMY PRTL W/RMVL TERMINAL ILEUM Right 10/21/2023 Procedure: COLECTOMY RIGHT ROBOTIC XI AND SMALL BOWEL RESECTION WITH LYMPH NODE DISSECTION AND LIVER BIOPSY; Surgeon: Austen Hall MD; Location: [facility] OR; Service: [employer] Social History Marital status: Tobacco Use Smoking status: Smokeless tobacco: Never Vaping Use Vaping Use: Never used Substance and Sexual Activity Alcohol use: Never Drug use: Never Sexual activity: Not Currently Family History Problem Relation Age of Onset Heart attack Mother Sister had breast cancer and at age 53 Current therapy: 1) FOLFOX with meli. Following cycle #2 which was administered on 01/19, he had onset of nausea and vomiting 01/26. 2 episodes. Following that he had diarrhea. Symptoms abated somewhat but worsened and he went to the ER. Had a CT of the abdomen pelvis which redemonstrated metastatic disease to liver and lung. There were findings of right prior hemicolectomy with some inflammatory changes in the distal terminal ileum atthe site of anastomosis. He was given hydration and discharged home. All was due to a supplemental drink he was using. He stopped it and has not had any nausea since. Presents for ongoing oncologic management. Interim history: No sense of smell or taste. Was diminishing prior to Covid but really dropped off since then. 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 Diarrhea still occurs for about 3 days in a row continues. Depends on what he eats. Self resolves. Fatigue stable. ROS: Constitutional: No fever. No drenching night sweats. Neuro: No recent SARAH, vertigo, dizziness or imbalance. HEENT: No recent change in voice, vision or hearing. Resp: No cough, wheeze of hemoptysis. No shortness of breath at rest. No FERNANDEZ. CVS: No exertional chest pain, PND or orthopnea. No extremity swelling/edema. GI: See HPI. : No dysuria or gross hematuria. Endo: No hot flashes. No polyuria or polydipsia. No heat or cold intolerance. Musculoskeletal: No bone, back, joint and muscular pain. Derm: No rash. Heme: No unusual bleeding and unexplained bruising. Psych: Normal mood. PHYSICAL EXAM: Vitals: Blood pressure 135/74, pulse 68, temperature 36.4 C (97.6 F), temperature source Temporal, weight 87.8 kg (193 lb 8 oz), SpO2 97%. Well-appearing and in no acute distress. EYES: Sclerae are anicteric bilaterally. LYMPHATIC: There is no palpable cervical, supraclavicular adenopathy. RESPIRATORY: Inspiratory breath sounds are of normal intensity in all farfan. No rales, wheezes or rhonchi. CARDIOVASCULAR: Rhythm is regular. ABDOMEN: The abdomen is nondistended. SKIN: No jaundice. LABS: NGS/biomarkers/route driver mutation analyses: pMRR. KRAS mutation. 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 -PS is 90%. -Comorbid conditions: DM2 (no baseline neuropathy), hypertension, hyperlipidemia and BRYCE. -Tolerating FOLFOX with bevacizumab very well. -Blood pressure controlled. -History of iron deficiency received parenteral iron. -Hgb fluctuates, but no suggestion of TUNG. Secondary to chemotherapy. -CEA fluctuating. -He has no persistent symptoms of neuropathy so we again discussed continuing oxaliplatin for the time being particularly because his disease has been so well-controlled and it is not clear that oxaliplatin is causing his loss of smell or taste. I explained typically patients will complain of a metallic taste with oxaliplatin. We discussed potentially holding it but we agreed to continue for the reasons just stated. Plan: -Okay for cycle #18 today. -Monitor CEA. -Monitor urine monthly for proteinuria. -CTs prior to cycle #20. -Continue oral potassium replacement and Slow-Mag 1 tablet daily. -Ongoing monitoring of electrolytes and magnesium. (D64.81, T45.1X5A) Anemia due to antineoplastic chemotherapy (Z86.39) History of iron deficiency (Z86.2) History of anemia due to vitamin B12 deficiency Assessment: -Anemia multifactorial but no evidence of iron deficiency at this time. He has been receiving monthly B12 injections. Discussed that moderate anemia secondary to chemotherapy. He has some fatigue butis fully capable of ADLs and IADLs. Discussed plan to continue monitoring. Plan: -CBC with each cycle. -Recheck iron levels as indicated. -Continue monthly B12 injection. -Periodic check of B12 level. (K52.1, T45.1X5A) Chemotherapy induced diarrhea Assessment: -Remains a grade 1 and is well-managed with Imodium. Plan: -Imodium as needed. Portions of this documentation were copied and pasted from my previous office visit note dated 08/17/2024 in order to provide a cohesive continuity of the history. The note has been reviewed and edited and updated as necessary. Aarti Bar DO documented in this encounterAden[facility]04-16-2025 NoteR[facility]04-16-2025 History of Present illness Narrative* Mary Conway RN - 10/12/2024 9:52 AM EDT Patient is here for IVAD port flush/blood draw per [facility] [place] protocol. IVAD is located in left upper chest. Site cleansed with Chloraprep IVAD accessed with a #20 gauge 3/4 non-coring Gripper needle Flush with 5cc's Normal Saline. Blood Return: Good. 10 cc's blood aspirated and discarded. Blood drawn for CBC, CMP, and Gold top. Flushed with: 20 ml Normal Saline. Non-coring needle left intact for further therapy. Opsite applied to puncture site. Site negative for redness, edema or tenderness. Patient tolerated procedure well. documented in this encounterAdena Health System03-31-2025 Telephone encounter Note * Telephone Encounter - [place] Mikayla Cohen - 09/26/2024 1:53 PM EDT Dionne called due to waiting for one week. Patient is now out of medication. Please send today. Please notify spouse Dionne once sent. [facility]03-31-2025 Miscellaneous Notes* Telephone Encounter - [place] Mikayla Cohen - 09/26/2024 1:53 PM EDT Doinne called due to waiting for one week. Patient is now out of medication. Please send today. Please notify spouse Dionne once sent. * Telephone Encounter - Italia Flores - 09/19/2024 10:49 AM EDT Prescription Refill Information The patient has been identified by name and date of : Yes Caregiver verified no other encounters exist for this prescription request: Yes Caregiver confirmed with patient/requestor that no other refills are due, in the near future, with this provider at this time: Yes The last office visit in the department: Does the patient have a future office visit with this provider/department: Yes Requested Prescriptions Pending Prescriptions Disp Refills glimepiride (AMARYL) 4 mg tablet 90 tablet 1 Sig: Take 1 tablet by mouth once daily. rosuvastatin (CRESTOR) 10 mg tablet 90 tablet 1 Sig: Take 1 tablet by mouth once daily. Italia Cohen September 19, 2024 10:50 AM documented in this encounterAdena Health System03-28-2025 Telephone encounter Note * Telephone Encounter - Checnho Kovacs - 09/23/2024 10:21 AM EDT Patient is active with [employer] Medicare, LOC 80%, $0 deductible has $0 remaining, $3,350 OOP has $1,027.74 remaining. Estimate shows patient financial responsibility is $779.67 for each treatment in 2024until oop max is reached. Will call the patient's tomorrow to discuss Reference #[id number]. [facility]03-28-2025 Miscellaneous Notes* Telephone Encounter - Chencho Kovacs - 09/23/2024 10:21 AM EDT Patient is active with [employer], LOC 80%, $0 deductible has $0 remaining, $3,350 OOP has $1,027.74 remaining. Estimate shows patient financial responsibility is $779.67 for each treatment in 2024until oop max is reached. Will call the patient's tomorrow to discuss Reference #[id number]. documented in this encounterAdena Health System03-24-2025 Telephone encounter Note * Telephone Encounter - Italia Flores - 09/19/2024 10:49 AM EDT Prescription Refill Information The patient has been identified by name and date of : Yes Caregiver verified no other encounters exist for this prescription request: Yes Caregiver confirmed with patient/requestor that no other refills are due, in the near future, with this provider at this time: Yes The last office visit in the department: Does the patient have a future office visit with this provider/department: Yes Requested Prescriptions Pending Prescriptions Disp Refills glimepiride (AMARYL) 4 mg tablet 90 tablet 1 Sig: Take 1 tablet by mouth once daily. rosuvastatin (CRESTOR) 10 mg tablet 90 tablet 1 Sig: Take 1 tablet by mouth once daily. Italia Cohen September 19, 2024 10:50 AM [facility]03-21-2025 NoteHNO ID: [id number] Author: LAUREEN LYONS RN Service: ? Author Type: Registered Nurse Type: Progress Notes Filed: 09/16/2024 11:47 Note Text: Patient denies any pain or symptoms at this timeRiverview [facility] Institute 09-16-2024 History of Present illness Narrative* Laureen Lyons RN - 09/16/2024 11:21 AM EDT Patient denies any pain or symptoms at this time documented in this encounterAdena Health System03-19-2025 Telephone encounter Note * Telephone Encounter - Amparo Razo LISW - 09/14/2024 1:33 PM EDT SOCIAL WORK FOLLOW UP NOTE: [facility] Date of service: September 14, 2024 Dipti Sierra is being seen for a follow up social work visit. Today's visit includes: spouse TOPICS ADDRESSED: SW met with pt's this date following OV. Pt's is inquiring about financial assistance for pt's chemotherapy regimen, reporting a $300 OOP for each treatment. SW discussed referred to the financial navigators and discussed with pt's possible assistance programs they could assist him enroll him. Pt's in agreement with referral. SW referred pt via email to financial navigation this date. No other needs identified at this time. PLAN: Continue follow up as needed and referral to financial navigation F/U APPOINTMENT: PRN Assigned SW listed in Care Team tab: Yes JON Duran-Beverly [facility]03-19-2025 Miscellaneous Notes* Telephone Encounter - Amparo Razo LISW - 09/14/2024 1:33 PM EDT SOCIAL WORK FOLLOW UP NOTE: [facility] Date of service: September 14, 2024 Dipti Sierra is being seen for a follow up social work visit. Today's visit includes: spouse TOPICS ADDRESSED: SW met with pt's this date following OV. Pt's is inquiring about financial assistance for pt's chemotherapy regimen, reporting a $300 OOP for each treatment. SW discussed referred to the financial navigators and discussed with pt's possible assistance programs they could assist him enroll him. Pt's in agreement with referral. SW referred pt via email to financial navigation this date. No other needs identified at this time. PLAN: Continue follow up as needed and referral to financial navigation F/U APPOINTMENT: PRN Assigned SHERRI listed in Care Team tab: Yes VIRGIL Duran documented in this encounterAdena Health System03-19-2025 NoteRiverview [facility] Institute03-19-2025 History of Present illness Narrative* Rhonda Owens - 09/14/2024 9:21 AM EDT Oncologic problem(s): 1) Metastatic adenocarcinoma of the cecum. HPI: The patient is a 78-year-old male with a past medical history as outlined below. Had a colonoscopy in 2019 during which evidently showed one polyp. Had about 2 year history right abdominal pain. Insomnia. Had work up [facility] 02/2022. Admitted to [facility] in September with hemoglobin of 5.5 g/dL and black tarry stools. Got 3 units RBCs and IV iron. CTA 10/20/2023: 1. No acute pulmonary emboli. 2. There is a mass in the cecum measuring approximately 6.7 cm in greatest dimension consistent with colon cancer. There are a few mildly enlarged mesenteric lymph nodes in the right lower quadrant likely representing local metastatic rolando disease. 3. Multiple ill-defined low-density metastatic lesions in the liver. 4. Numerous metastatic nodules and masses throughout both lungs. A few of these lesions abut the pleural surface but do not clearly invade into the chest wall. 5. Hazy ground-glass density throughout the lungs likely related to pulmonary edema. No pleural effusion. 6. There are a few small to borderline enlarged mediastinal and hilar lymph nodes that are nonspecific. Colonoscopy 10/20/2023: A frond-like/villous non-obstructing large mass was found in the cecum. No bleeding was present. Biopsies were taken with a cold forceps for histology. Multiple small and large-mouthed diverticula were found in the sigmoid colon and descending colon. External hemorrhoids were found. The hemorrhoids were small. EGD was unremarkable. Underwent robotic right hemicolectomy, small bowel resection, liver biopsy and port placement on 10/21/2023. COLON: ADENOCARCINOMA Procedure: Right hemicolectomy Macroscopic evaluation of mesorectum (for rectal cancer): Not applicable Tumor site: Cecum Histologic type: Adenocarcinoma Histologic grade: G2: Moderately differentiated Tumor size: 10 cm Multiple primary sites: Not applicable (no additional primary sites present) Tumor extent: Directly invades or adheres to adjacent structure(s): Small bowel Submucosal Invasion (for pT1 tumors only) Not applicable (not a pT1 tumor) Macroscopic tumor perforation: Not identified Lymphatic and/or vascular invasion: Not identified Perineural invasion: Not identified Tumor budding score: High (10 or more) Treatment effect: No known presurgical therapy Margins: Margin status for invasive carcinoma: All margins negative for invasive carcinoma Margin status for non-invasive tumor: All margins negative for high-grade dysplasia / intramucosal carcinoma and low-grade dysplasia Regional lymph nodes: Regional lymph node status: Tumor present in regional lymph node(s) Number of lymph nodes with tumor: 2 Number of lymph nodes examined: 31 Tumor deposits: Present (count = 1) Distant site(s) involved: Liver AJCC 8th edition pathologic stage: Modified Classification: Not applicable pT4b pN1b pM1a MMR Studies (performed on current case) MLH1: Intact protein expression. MSH2: Intact protein expression. MSH6: Intact protein expression. PMS2: Intact protein expression. A. Liver, biopsy: Adenocarcinoma, morphologically consistent with metastatic colonic primary. B. Colon, right hemicolectomy: Invasive moderately differentiated adenocarcinoma. See synoptic report. PET 11/25/2023--demonstrated postsurgical changes in the abdomen. There are hypermetabolic bilaterallung masses and hypermetabolic right hilar adenopathy suspicious for metastatic disease. The largest of the bilateral lung masses measured up to 4.2 x 5.5 cm on the right. Multiple hypermetabolic liver masses measuring up to 4.1 were observed. Spleen size was noted to be borderline. No bone metastases observed. Per initial OV: Feeling much better. No pain. Bowels moving regularly. Mostly formed stools. Occasionally loose. No other GI symptoms. No longer short of breath. Past Medical History: Diabetes mellitus (HCC) Hyperlipidemia Hypertension Sleep apnea has a CPAP Past Surgical History: Procedure Laterality Date ANKLE ARTHROSCOPY W/ OPEN REPAIR Left 1967 APPENDECTOMY 1961 CARDIAC CATHETERIZATION N/A 02/10/2022 Procedure: Left Heart Cath Possbile PTCA/Stent; Surgeon: Baljinder Banegas MD; Location: [facility]; Service: Cardiovascular CARDIAC CATHETERIZATION N/A 02/10/2022 Procedure: Coronary Angiogram; Surgeon: Baljinder Banegas MD; Location: [facility]; Service: Cardiovascular CARDIAC CATHETERIZATION N/A 02/10/2022 Procedure: Instant Wave Free Ratio; Surgeon: Baljinder Banegas MD; Location: [facility]; Service: Cardiovascular CARDIAC CATHETERIZATION N/A 02/10/2022 Procedure: Fractional Flow Ruffin; Surgeon: Baljinder Banegas MD; Location: [facility]; Service: Cardiovascular COLONOSCOPY N/A 10/20/2023 Procedure: COLONOSCOPY with biopsy; Surgeon: Joe Rojas MD; Location: Endo; Service: Gastroenterology CT COLONOSCOPY 03/01/[address] COLONOSCOPY 07/16/2018 CT COLONOSCOPY EGD N/A 10/20/2023 Procedure: ESOPHAGOGASTRODUODENOSCOPY; Surgeon: Joe Rojas MD; Location: Endo; Service: Gastroenterology INSERTION SUBCUTANEOUS PORT N/A 10/21/2023 Procedure: INSERTION SUBCUTANEOUS PORT; Surgeon: Austen Hall MD; Location: [facility]; Service: [employer] KNEE ARTHROPLASTY Right 1999 MT LAPS COLECTOMY PRTL W/RMVL TERMINAL ILEUM Right 10/21/2023 Procedure: COLECTOMY RIGHT ROBOTIC XI AND SMALL BOWEL RESECTION WITH LYMPH NODE DISSECTION AND LIVER BIOPSY; Surgeon: Austen Hall MD; Location: [facility]; Service: [employer] Social History Marital status: Tobacco Use Smoking status: Smokeless tobacco: Never Vaping Use Vaping Use: Never used Substance and Sexual Activity Alcohol use: Never Drug use: Never Sexual activity: Not Currently Family History Problem Relation Age of Onset Heart attack Mother Sister had breast cancer and at age 53 Current therapy: 1) FOLFOX with meli. Following cycle #2 which was administered on 01/19, he had onset of nausea and vomiting 01/26. 2 episodes. Following that he had diarrhea. Symptoms abated somewhat but worsened and he went to the ER. Had a CT of the abdomen pelvis which redemonstrated metastatic disease to liver and lung. There were findings of right prior hemicolectomy with some inflammatory changes in the distal terminal ileum atthe site of anastomosis. He was given hydration and discharged home. All was due to a supplemental drink he was using. He stopped it and has not had any nausea since. Presents for ongoing oncologic management. Interim history: Mr. Sierra presents today with his spouse and son prior to treatment. He reports feeling well. Denies any new issues. Taste still off from Covid, no real changes. Feels that he has to force himself to eat. 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 Diarrhea still occurs for about 3 days in a row continues. What eats can make a difference. Self resolves. Often eats cheese to treat this. Tolerable. Denies bleeding or bruising. ROS: All systems reviewed on 09/14/2024 with pertinent positives and negatives as outlined in the interval history. PHYSICAL EXAM: Vitals: Blood pressure 149/74, pulse 74, temperature 36.5 C (97.7 F), temperature source Temporal, weight 89.6 kg (197 lb 8 oz), SpO2 94%. Well-appearing and in no acute distress. EYES: Sclerae are anicteric bilaterally. LYMPHATIC: There is no palpable cervical, supraclavicular adenopathy. RESPIRATORY: Inspiratory breath sounds are of normal intensity in all farfan. No rales, wheezes or rhonchi. CARDIOVASCULAR: Rhythm is regular. ABDOMEN: The abdomen is nondistended. SKIN: No jaundice. I have performed the physical exam today (09/14/2024) and have edited the note to correlate with current findings. LABS: NGS/biomarkers/route driver mutation analyses: pMRR. KRAS mutation. 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 -PS is 90%. -Comorbid conditions: DM2 (no baseline neuropathy), hypertension, hyperlipidemia and BRYCE. -Tolerating FOLFOX with bevacizumab very well. -Blood pressure controlled -History of iron deficiency received parenteral iron with improvement. -Hgb fluctuates, but no suggestion of TUNG. Secondary to chemotherapy. -CEA pending today -Reviewed CT results from 08/10, stable -He has no persistent symptoms of neuropathy paln to continuing oxaliplatin for the time being. Plan: -Okay for cycle #16 today. -Continue to monitor CEA. -Monitor urine monthly for proteinuria. -CTs following 3-5 cycles pending CEA trend. -Continue oral potassium replacement and Slow-Mag 1 tablet daily. -Ongoing monitoring of electrolytes and magnesium. (D64.81, T45.1X5A) Anemia due to antineoplastic chemotherapy (Z86.39) History of iron deficiency (Z86.2) History of anemia due to vitamin B12 deficiency Assessment: -Anemia multifactorial but no evidence of iron deficiency at this time. He has been receiving monthly B12 injections. Discussed that moderate anemia secondary to chemotherapy. He has some fatigue butis fully capable of ADLs and IADLs. Discussed plan to continue monitoring. Plan: -CBC with each cycle, generally stable today -Recheck iron levels as needed. -Continue monthly B12 injection. -Periodic check of B12 level. (K52.1, T45.1X5A) Chemotherapy induced diarrhea Assessment: -Remains a grade 1 and is well-managed with Imodium. Plan: -Imodium as needed. Rhonda Owens APRN.OPERATIONS PROGRAM MANAGER I spent a total of 30 minutes on the date of the service which included preparing to see the patient, [id number] patient care, completing clinical documentation, obtaining and/or reviewing separately obtained history, and ordering medications, tests, or procedures. Portions of this note including HPI, ROS, impression/plan may have been copied forward as to provide important historical information essential in contributing to medical decision making. Documentation has been reviewed and edited as necessary to support clinical decision making for today's visit and to reflect my own independent evaluation of this patient. documented in this encounterAden[facility] System[facility]-17-[facility]25 Telephone encounter Note * Telephone Encounter - Italia Flores - 09/12/2024 10:07 AM EDT Prescription Refill Information The patient has been identified by name and date of : Yes Caregiver verified no other encounters exist for this prescription request: Yes Caregiver confirmed with patient/requestor that no other refills are due, in the near future, with this provider at this time: Yes The last office visit in the department: Does the patient have a future office visit with this provider/department: Yes Requested Prescriptions Pending Prescriptions Disp Refills omeprazole (PRILOSEC) 40 mg capsule 90 capsule 1 Sig: Take 1 capsule by mouth once daily. Italia Cohen September 12, 2024 10:08 AM [facility]03-17-2025 Miscellaneous Notes* Telephone Encounter - Italia Flores - 09/12/2024 10:07 AM EDT Prescription Refill Information The patient has been identified by name and date of : Yes Caregiver verified no other encounters exist for this prescription request: Yes Caregiver confirmed with patient/requestor that no other refills are due, in the near future, with this provider at this time: Yes The last office visit in the department: Does the patient have a future office visit with this provider/department: Yes Requested Prescriptions Pending Prescriptions Disp Refills omeprazole (PRILOSEC) 40 mg capsule 90 capsule 1 Sig: Take 1 capsule by mouth once daily. Italia Cohen September 12, 2024 10:08 AM documented in this encounterAdena [facility] System02-19-2025 [facility] History of Present illness Narrative* Aarti Bar DO - 08/17/2024 9:17 AM EST Oncologic problem(s): 1) Metastatic adenocarcinoma of the cecum. HPI: The patient is a 78-year-old male with a past medical history as outlined below. Had a colonoscopy in 2018 during which evidently showed one polyp. Had about 2 year history right abdominal pain. Insomnia. Had work up [facility] 02/2022. Admitted to [facility] in September with hemoglobin of 5.5 g/dL and black tarry stools. Got 3 units RBCs and IV iron. CTA 10/20/2023: 1. No acute pulmonary emboli. 2. There is a mass in the cecum measuring approximately 6.7 cm in greatest dimension consistent with colon cancer. There are a few mildly enlarged mesenteric lymph nodes in the right lower quadrant likely representing local metastatic rolando disease. 3. Multiple ill-defined low-density metastatic lesions in the liver. 4. Numerous metastatic nodules and masses throughout both lungs. A few of these lesions abut the pleural surface but do not clearly invade into the chest wall. 5. Hazy ground-glass density throughout the lungs likely related to pulmonary edema. No pleural effusion. 6. There are a few small to borderline enlarged mediastinal and hilar lymph nodes that are nonspecific. Colonoscopy 10/20/2023: A frond-like/villous non-obstructing large mass was found in the cecum. No bleeding was present. Biopsies were taken with a cold forceps for histology. Multiple small and large-mouthed diverticula were found in the sigmoid colon and descending colon. External hemorrhoids were found. The hemorrhoids were small. EGD was unremarkable. Underwent robotic right hemicolectomy, small bowel resection, liver biopsy and port placement on 10/21/2023. COLON: ADENOCARCINOMA Procedure: Right hemicolectomy Macroscopic evaluation of mesorectum (for rectal cancer): Not applicable Tumor site: Cecum Histologic type: Adenocarcinoma Histologic grade: G2: Moderately differentiated Tumor size: 10 cm Multiple primary sites: Not applicable (no additional primary sites present) Tumor extent: Directly invades or adheres to adjacent structure(s): Small bowel Submucosal Invasion (for pT1 tumors only) Not applicable (not a pT1 tumor) Macroscopic tumor perforation: Not identified Lymphatic and/or vascular invasion: Not identified Perineural invasion: Not identified Tumor budding score: High (10 or more) Treatment effect: No known presurgical therapy Margins: Margin status for invasive carcinoma: All margins negative for invasive carcinoma Margin status for non-invasive tumor: All margins negative for high-grade dysplasia / intramucosal carcinoma and low-grade dysplasia Regional lymph nodes: Regional lymph node status: Tumor present in regional lymph node(s) Number of lymph nodes with tumor: 2 Number of lymph nodes examined: 31 Tumor deposits: Present (count = 1) Distant site(s) involved: Liver AJCC 8th edition pathologic stage: Modified Classification: Not applicable pT4b pN1b pM1a MMR Studies (performed on current case) MLH1: Intact protein expression. MSH2: Intact protein expression. MSH6: Intact protein expression. PMS2: Intact protein expression. A. Liver, biopsy: Adenocarcinoma, morphologically consistent with metastatic colonic primary. B. Colon, right hemicolectomy: Invasive moderately differentiated adenocarcinoma. See synoptic report. PET 11/25/2023--demonstrated postsurgical changes in the abdomen. There are hypermetabolic bilaterallung masses and hypermetabolic right hilar adenopathy suspicious for metastatic disease. The largest of the bilateral lung masses measured up to 4.2 x 5.5 cm on the right. Multiple hypermetabolic liver masses measuring up to 4.1 were observed. Spleen size was noted to be borderline. No bone metastases observed. Per initial OV: Feeling much better. No pain. Bowels moving regularly. Mostly formed stools. Occasionally loose. No other GI symptoms. No longer short of breath. Past Medical History: Diabetes mellitus (HCC) Hyperlipidemia Hypertension Sleep apnea has a CPAP Past Surgical History: Procedure Laterality Date ANKLE ARTHROSCOPY W/ OPEN REPAIR Left 1967 APPENDECTOMY 1961 CARDIAC CATHETERIZATION N/A 02/10/2022 Procedure: Left Heart Cath Possbile PTCA/Stent; Surgeon: Baljinder Banegas MD; Location: [facility]; Service: Cardiovascular CARDIAC CATHETERIZATION N/A 02/10/2022 Procedure: Coronary Angiogram; Surgeon: Baljinder Banegas MD; Location: [facility]; Service: Cardiovascular CARDIAC CATHETERIZATION N/A 02/10/2022 Procedure: Instant Wave Free Ratio; Surgeon: Baljinder Banegas MD; [facility]; Service: Cardiovascular CARDIAC CATHETERIZATION N/A 02/10/2022 Procedure: Fractional Flow Ruffin; Surgeon: Baljinder Banegas MD; Location: [facility]; Service: Cardiovascular COLONOSCOPY N/A 10/20/2023 Procedure: COLONOSCOPY with biopsy; Surgeon: Joe Rojas MD; Location: [facility]; Service: Gastroenterology CT COLONOSCOPY 03/01/[address] COLONOSCOPY 07/16/2018 CT COLONOSCOPY EGD N/A 10/20/2023 Procedure: ESOPHAGOGASTRODUODENOSCOPY; Surgeon: Joe Rojas MD; Location: [facility]; Service: Gastroenterology INSERTION SUBCUTANEOUS PORT N/A 10/21/2023 Procedure: INSERTION SUBCUTANEOUS PORT; Surgeon: Austen Hall MD; Location: [facility]; Service: [employer] KNEE ARTHROPLASTY Right 1999 MT LAPS COLECTOMY PRTL W/RMVL TERMINAL ILEUM Right 10/21/2023 Procedure: COLECTOMY RIGHT ROBOTIC XI AND SMALL BOWEL RESECTION WITH LYMPH NODE DISSECTION AND LIVER BIOPSY; Surgeon: Austen Hall MD; Location: [facility]; Service: [employer] Social History Marital status: Tobacco Use Smoking status: Smokeless tobacco: Never Vaping Use Vaping Use: Never used Substance and Sexual Activity Alcohol use: Never Drug use: Never Sexual activity: Not Currently Family History Problem Relation Age of Onset Heart attack Mother Sister had breast cancer and at age 53 Current therapy: 1) FOLFOX with meli. Following cycle #2 which was administered on 01/19, he had onset of nausea and vomiting 01/26. 2 episodes. Following that he had diarrhea. Symptoms abated somewhat but worsened and he went to the ER. Had a CT of the abdomen pelvis which redemonstrated metastatic disease to liver and lung. There were findings of right prior hemicolectomy with some inflammatory changes in the distal terminal ileum atthe site of anastomosis. He was given hydration and discharged home. All was due to a supplemental drink he was using. He stopped it and has not had any nausea since. Presents for ongoing oncologic management. Interim history: Taste still off from Covid. 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 In fact, says it's not as bad as it was at first--can drink cold water sooner after day 1. Diarrhea still occurs for about 3 days in a row continues. What eats can make a difference. Self resolves. Fatigued. ROS: Constitutional: No fever. No drenching night sweats. Neuro: No recent SARAH, vertigo, dizziness or imbalance. HEENT: No recent change in voice, vision or hearing. Resp: No cough, wheeze of hemoptysis. No shortness of breath at rest. No FERNANDEZ. CVS: No exertional chest pain, PND or orthopnea. No extremity swelling/edema. GI: See HPI. : No dysuria or gross hematuria. Endo: No hot flashes. No polyuria or polydipsia. No heat or cold intolerance. Musculoskeletal: No bone, back, joint and muscular pain. Derm: No rash. Heme: No unusual bleeding and unexplained bruising. Psych: Normal mood. PHYSICAL EXAM: Vitals: Blood pressure 145/70, pulse 68, temperature 36.3 C (97.4 F), temperature source Temporal, weight 89.8 kg (198 lb), SpO2 97%. Well-appearing and in no acute distress. EYES: Sclerae are anicteric bilaterally. LYMPHATIC: There is no palpable cervical, supraclavicular adenopathy. RESPIRATORY: Inspiratory breath sounds are of normal intensity in all farfan. No rales, wheezes or rhonchi. CARDIOVASCULAR: Rhythm is regular. ABDOMEN: The abdomen is nondistended. SKIN: No jaundice. LABS: NGS/biomarkers/route driver mutation analyses: pMRR. KRAS mutation. 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 -PS is 90%. -Comorbid conditions: DM2 (no baseline neuropathy), hypertension, hyperlipidemia and BRYCE. -Tolerating FOLFOX with bevacizumab very well. -Blood pressure controlled--systolic a little high today but is not usual for him when here. -History of iron deficiency received parenteral iron. Nice improvement in hemoglobin. -Hgb fluctuates, but no suggestion of TUNG. Secondary to chemotherapy. -CEA continues to trend lower. -Reviewed CT results from 08/10. Further objective response. -He has no persistent symptoms of neuropathy so we discussed continuing oxaliplatin for the time being. Plan: -Okay for cycle #14 today. -Monitor CEA. -Monitor urine monthly for proteinuria. -CTs following 4-6 cycles pending CEA trend. -Continue oral potassium replacement and Slow-Mag 1 tablet daily. -Ongoing monitoring of electrolytes and magnesium. (D64.81, T45.1X5A) Anemia due to antineoplastic chemotherapy (Z86.39) History of iron deficiency (Z86.2) History of anemia due to vitamin B12 deficiency Assessment: -Anemia multifactorial but no evidence of iron deficiency at this time. He has been receiving monthly B12 injections. Discussed that moderate anemia secondary to chemotherapy. He has some fatigue butis fully capable of ADLs and IADLs. Discussed plan to continue monitoring. Plan: -CBC with each cycle. -Recheck iron levels as needed. -Continue monthly B12 injection. -Periodic check of B12 level. (K52.1, T45.1X5A) Chemotherapy induced diarrhea Assessment: -Remains a grade 1 and is well-managed with Imodium. Plan: -Imodium as needed. Portions of this documentation were copied and pasted from my previous office visit note dated 07/20/2024 in order to provide a cohesive continuity of the history. The note has been reviewed and edited and updated as necessary. Aarti aBr DO documented in this encounterAdena Health System02-12-2025 History of Present illness Narrative* Luisito Carbajal, RT(R) - 08/10/2024 2:00 PM EST Radiology Service Progress Note PATIENT NAME: Dipti Sierra DATE OF SERVICE: August 10, 2024 TIME: 3:57 PM PATIENT IDENTITY VERIFICATION COMPLETED USING TWO (2) IDENTIFIERS: Name and Date of confirmedby patient verbally. FALL SCREENING: Has the patient had 2 falls in the last year or 1 fall with injury or currently using an Ambulatory Assistive Device (Walker, Cane, Wheelchair, Crutches, etc.)? No PATIENT GENDER DATA: Assigned male at PATIENT RELEVANT IMPLANT DATA REVIEWED: Yes PATIENT PRESENTS WITH AN IMPLANTABLE OR ATTACHED CASING MAN: No RADIOLOGY DEPARTMENT: CT; Exam(s) Completed: Chest Abdomen Pelvis PERIPHERAL IV DATA: power port accessed by hemoc SIGNED BY: RT Rosaura(R) August 10, 2024 3:57 PM documented in this encounterAdena Health System02-12-2025 [facility]02-12-2025 [facility]02-12-2025 History of Present illness Narrative* Mary Conway RN - 08/10/2024 7:24 AM EST Patient is here for IVAD port flush/blood draw per [facility] [place] protocol. IVAD is located in left upper chest. Site cleansed with Chloraprep IVAD accessed with a #20 gauge 3/4 non-coring Gripper needle Flush with 5cc's Normal Saline. Blood Return: Good. 10 cc's blood aspirated and discarded. Blood drawn for CBC, CMP, and Gold top. Flushed with: 20 ml Normal Saline. Non-coring needle left intact for further therapy. Opsite applied to puncture site. Site negative for redness, edema or tenderness. Patient tolerated procedure well. documented in this encounterAdena Health System01-27-2025 Instructions* Patient Instructions* Jannet Brady OD - 07/25/2024 2:35 PM EST ASSESSMENT/PLAN: 1. 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 Discussed need for optimal diabetes control to minimize chance of ocular complications. Advise patient to immediately report worsening in status or additional symptoms. Continue yearly dilated eye examinations. 2. Combined form of age-related cataract, both eyes - ICD9: 366.19, ICD10: H25.813 Mild to moderate cataract in both eyes. Well tolerated at this time. Discussed possible future affect on daily activities to watch for. Monitor as instructed. 3. Floaters, bilateral - ICD9: 379.24, ICD10: H43.393 Vitreal floaters stable both eyes. Retinas flat and intact with no apparent retinal tear or traction. Discussed symptoms of retinal tear/detachment and if seen patient will return to clinic without delay. 4. Hyperopia, bilateral - ICD9: 367.0, ICD10: H52.03 5. Regular astigmatism, bilateral - ICD9: 367.21, ICD10: H52.223 6. Presbyopia - ICD9: 367.4, ICD10: H52.4 Discussed updating his glasses as desired. Recommended yearly dilated exams. documented in this encounterAdena Health System01-27-2025 NoteR[facility] Institute01-27-2025 History of Present illness Narrative* Jannet Brady, OD - 07/25/2024 2:33 PM EST ASSESSMENT/PLAN: 1. 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 Discussed need for optimal diabetes control to minimize chance of ocular complications. Advise patient to immediately report worsening in status or additional symptoms. Continue yearly dilated eye examinations. 2. Combined form of age-related cataract, both eyes - ICD9: 366.19, ICD10: H25.813 Mild to moderate cataract in both eyes. Well tolerated at this time. Discussed possible future affect on daily activities to watch for. Monitor as instructed. 3. Floaters, bilateral - ICD9: 379.24, ICD10: H43.393 Vitreal floaters stable both eyes. Retinas flat and intact with no apparent retinal tear or traction. Discussed symptoms of retinal tear/detachment and if seen patient will return to clinic without delay. 4. Hyperopia, bilateral - ICD9: 367.0, ICD10: H52.03 5. Regular astigmatism, bilateral - ICD9: 367.21, ICD10: H52.223 6. Presbyopia - ICD9: 367.4, ICD10: H52.4 Discussed updating his glasses as desired. Recommended yearly dilated exams. Jannet Brady, OD I have confirmed and edited as necessary the relevant ophthalmic history, ROS, and the neuro exam findings as obtained by others. documented in this encounterAdena Health System01-22-2025 NoteRiverview [facility] Institute01-22-2025 History of Present illness Narrative* Aarti Bar, - 07/20/2024 9:57 AM EST Oncologic problem(s): 1) Metastatic adenocarcinoma of the cecum. HPI: The patient is a 78-year-old male with a past medical history as outlined below. Had a colonoscopy in 2019 during which evidently showed one polyp. Had about 2 year history right abdominal pain. Insomnia. Had work up [facility] 02/2022. Admitted to [facility] in September with hemoglobin of 5.5 g/dL and black tarry stools. Got 3 units RBCs and IV iron. CTA 10/20/2023: 1. No acute pulmonary emboli. 2. There is a mass in the cecum measuring approximately 6.7 cm in greatest dimension consistent with colon cancer. There are a few mildly enlarged mesenteric lymph nodes in the right lower quadrant likely representing local metastatic rolando disease. 3. Multiple ill-defined low-density metastatic lesions in the liver. 4. Numerous metastatic nodules and masses throughout both lungs. A few of these lesions abut the pleural surface but do not clearly invade into the chest wall. 5. Hazy ground-glass density throughout the lungs likely related to pulmonary edema. No pleural effusion. 6. There are a few small to borderline enlarged mediastinal and hilar lymph nodes that are nonspecific. Colonoscopy 10/20/2023: A frond-like/villous non-obstructing large mass was found in the cecum. No bleeding was present. Biopsies were taken with a cold forceps for histology. Multiple small and large-mouthed diverticula were found in the sigmoid colon and descending colon. External hemorrhoids were found. The hemorrhoids were small. EGD was unremarkable. Underwent robotic right hemicolectomy, small bowel resection, liver biopsy and port placement on 10/21/2023. COLON: ADENOCARCINOMA Procedure: Right hemicolectomy Macroscopic evaluation of mesorectum (for rectal cancer): Not applicable Tumor site: Cecum Histologic type: Adenocarcinoma Histologic grade: G2: Moderately differentiated Tumor size: 10 cm Multiple primary sites: Not applicable (no additional primary sites present) Tumor extent: Directly invades or adheres to adjacent structure(s): Small bowel Submucosal Invasion (for pT1 tumors only) Not applicable (not a pT1 tumor) Macroscopic tumor perforation: Not identified Lymphatic and/or vascular invasion: Not identified Perineural invasion: Not identified Tumor budding score: High (10 or more) Treatment effect: No known presurgical therapy Margins: Margin status for invasive carcinoma: All margins negative for invasive carcinoma Margin status for non-invasive tumor: All margins negative for high-grade dysplasia / intramucosal carcinoma and low-grade dysplasia Regional lymph nodes: Regional lymph node status: Tumor present in regional lymph node(s) Number of lymph nodes with tumor: 2 Number of lymph nodes examined: 31 Tumor deposits: Present (count = 1) Distant site(s) involved: Liver AJCC 8th edition pathologic stage: Modified Classification: Not applicable pT4b pN1b pM1a MMR Studies (performed on current case) MLH1: Intact protein expression. MSH2: Intact protein expression. MSH6: Intact protein expression. PMS2: Intact protein expression. A. Liver, biopsy: Adenocarcinoma, morphologically consistent with metastatic colonic primary. B. Colon, right hemicolectomy: Invasive moderately differentiated adenocarcinoma. See synoptic report. PET 11/25/2023--demonstrated postsurgical changes in the abdomen. There are hypermetabolic bilaterallung masses and hypermetabolic right hilar adenopathy suspicious for metastatic disease. The largest of the bilateral lung masses measured up to 4.2 x 5.5 cm on the right. Multiple hypermetabolic liver masses measuring up to 4.1 were observed. Spleen size was noted to be borderline. No bone metastases observed. Per initial OV: Feeling much better. No pain. Bowels moving regularly. Mostly formed stools. Occasionally loose. No other GI symptoms. No longer short of breath. Past Medical History: Diabetes mellitus (HCC) Hyperlipidemia Hypertension Sleep apnea has a CPAP Past Surgical History: Procedure Laterality Date ANKLE ARTHROSCOPY W/ OPEN REPAIR Left 1967 APPENDECTOMY 1961 CARDIAC CATHETERIZATION N/A 02/10/2022 Procedure: Left Heart Cath Possbile PTCA/Stent; Surgeon: Baljinder Banegas MD; Location: [facility]; Service: Cardiovascular CARDIAC CATHETERIZATION N/A 02/10/2022 Procedure: Coronary Angiogram; Surgeon: Baljinder Banegas MD; Location: [facility]; Service: Cardiovascular CARDIAC CATHETERIZATION N/A 02/10/2022 Procedure: Instant Wave Free Ratio; Surgeon: Baljinder Banegas MD; Location: [facility]; Service: Cardiovascular CARDIAC CATHETERIZATION N/A 02/10/2022 Procedure: Fractional Flow Ruffin; Surgeon: Baljinder Banegas MD; Location: [facility]; Service: Cardiovascular COLONOSCOPY N/A 10/20/2023 Procedure: COLONOSCOPY with biopsy; Surgeon: Joe Rojas MD; Location: [facility]; Service: Gastroenterology CT COLONOSCOPY 03/01/[address] COLONOSCOPY 07/16/2018 CT COLONOSCOPY EGD N/A 10/20/2023 Procedure: ESOPHAGOGASTRODUODENOSCOPY; Surgeon: Joe Rojas MD; Location: [facility]; Service: Gastroenterology INSERTION SUBCUTANEOUS PORT N/A 10/21/2023 Procedure: INSERTION SUBCUTANEOUS PORT; Surgeon: Austen Hall MD; [facility]: [facility]; Service: [employer] KNEE ARTHROPLASTY Right 1999 MT LAPS COLECTOMY PRTL W/RMVL TERMINAL ILEUM Right 10/21/2023 Procedure: COLECTOMY RIGHT ROBOTIC XI AND SMALL BOWEL RESECTION WITH LYMPH NODE DISSECTION AND LIVER BIOPSY; Surgeon: Austen Hall MD; Location: [facility]; Service: [employer] Social History Marital status: Tobacco Use Smoking status: Smokeless tobacco: Never Vaping Use Vaping Use: Never used Substance and Sexual Activity Alcohol use: Never Drug use: Never Sexual activity: Not Currently Family History Problem Relation Age of Onset Heart attack Mother Sister had breast cancer and at age 53 Current therapy: 1) FOLFOX with meli. Following cycle #2 which was administered on 7/24, he had onset of nausea and vomiting 01/26. 2 episodes. Following that he had diarrhea. Symptoms abated somewhat but worsened and he went to the ER. Had a CT of the abdomen pelvis which redemonstrated metastatic disease to liver and lung. There were findings of right prior hemicolectomy with some inflammatory changes in the distal terminal ileum atthe site of anastomosis. He was given hydration and discharged home. All was due to a supplemental drink he was using. He stopped it and has not had any nausea since. Presents for ongoing oncologic management. 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 No symptoms of sensory neuropathy currently--even in the very cold weather this am. Diarrhea for about 3 days in a row continues. Self resolves. Fatigued. Had Covid--taste is off so appetite lower right now. ROS: Constitutional: No fever. No drenching night sweats. Neuro: No recent SARAH, vertigo, dizziness or imbalance. HEENT: No recent change in voice, vision or hearing. Resp: No cough, wheeze of hemoptysis. No shortness of breath at rest. No FERNANDEZ. CVS: No exertional chest pain, PND or orthopnea. No extremity swelling/edema. No symptoms of claudication. No painful or tender varicose veins. GI: See HPI. : No dysuria or gross hematuria. Endo: No hot flashes. No polyuria or polydipsia. No heat or cold intolerance. Musculoskeletal: No bone, back, joint and muscular pain. Derm: No current rash. No history of jaundice. No diffuse pruritis. Heme: No unusual bleeding and unexplained bruising. Psych: Normal mood. PHYSICAL EXAM: Vitals: Blood pressure 146/77, pulse 74, temperature 36.2 C (97.1 F), temperature source Temporal, weight 89.8 kg (198 lb), SpO2 95%. Well-appearing and in no acute distress. EYES: Sclerae are anicteric bilaterally. LYMPHATIC: There is no palpable cervical, supraclavicular adenopathy. RESPIRATORY: Inspiratory breath sounds are of normal intensity in all farfan. No rales, wheezes or rhonchi. CARDIOVASCULAR: Rhythm is regular. ABDOMEN: The abdomen is nondistended. SKIN: No jaundice. LABS: NGS/biomarkers/route driver mutation analyses: pMRR. KRAS mutation. ASSESSMENT/PLAN: (C18.0) Cancer of cecum (HCC) (primary encounter diagnosis) (C18.9, C78.00) 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) (C18.9, C78.7) 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) (D51.9) Anemia due to vitamin B12 deficiency, unspecified B12 deficiency type (Z86.39) History of iron deficiency (K52.1, T45.1X5A) Chemotherapy induced diarrhea Assessment: -pT4b pN1b 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 -PS is 90%. -Comorbid conditions: DM2 (no neuropathy), hypertension, hyperlipidemia and BRYCE. -Tolerating FOLFOX with bevacizumab very well. -Blood pressure controlled--systolic a little high today but is not usual for him. -History of iron deficiency received parenteral iron. Nice improvement in hemoglobin. -CTs 03/21--Objective response of liver metastases. Stable disease in the lungs. However, baseline comparator scans were done in September which was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 (COMPAZINE) 10 mg tablet Take 1 tablet by mouth every 6 hours as needed. ondansetron (ZOFRAN) 8 mg tablet Take 1 tablet by mouth every 8 hours as needed for nausea/vomiting. pioglitazone (ACTOS) 30 mg tablet Take 30 mg by mouth once daily. hydroCHLOROthiazide 12.5 mg tablet Take 12.5 mg by mouth once daily. zolpidem (AMBIEN) 5 mg tablet Take 10 mg by mouth at bedtime as needed. mometasone (NASONEX) 50 mcg/actuation nasal spray Use 2 Sprays in the nose once daily. azelastine 0.1% nasal spray Use 2 Sprays in each nostril two times a day. acetaminophen (TYLENOL) 500 mg tablet Take 500 mg by mouth every 8 hours as needed. REVIEW OF SYSTEMS: GENERAL: No fever, night sweats, weight loss or malaise. All other reviewed and negative other than HPI. PHYSICAL EXAMINATION: VITAL SIGNS: BP 122/67 Pulse 88 Temp (Src) 98 (Temporal) Wt 201 lb 8 oz (91.4kg) SpO2 92% GENERAL APPEARANCE: Well appearing, in no acute distress, alert and oriented x3, well-hydrated, well nourished. LUNGS: CTA HEART: Reg I spent a total of 30 minutes on the date of the service which included preparing to see the patient, [id number] patient care, completing clinical documentation, obtaining and/or reviewing separately obtained history, performing a medically appropriate examination, counseling and educating the pat ient/family/caregiver, ordering medications, tests, or procedures, communicating with other HCPs (not separately reported), independently interpreting results (not separately reported), and communicating results to the patient/family/caregiver. Electronically Signed: John Mccray MD June 21, 2024 8:45 AM documented in this encounterAdena [facility] System12-18-2024 Telephone encounter Note * Telephone Encounter - Margarita Tomlinson RN - 06/15/2024 5:21 PM EST Palliative Medicine at Home Care Coordination New Patient Note Patient declined services. No contact made [facility] Work Phone: 1(610) 756-529012-18-2024 Miscellaneous Notes* Telephone Encounter - Margarita Tomlinson RN - 06/15/2024 5:21 PM EST Palliative Medicine at Home Care Coordination New Patient Note Patient declined services. No contact made documented in this encounterAdena Health System12-17-2024 Instructions* Patient Instructions* Luisito Hassan, HODA.OPERATIONS PROGRAM MANAGER - 06/14/2024 8:33 AM EST Luisito Hassan CNP Department of Palliative and Supportive Care Palliative Care - Specialty services in symptom management and support For questions or prescription refills, call: [phone] Thursday - Thursday 9AM-5PM JEROME Elliott, RN - It Quality Analyst Please call 3-5 days in advance for medication refills Evenings, Weekends, Holidays: [phone] (ask for palliative medicine on-call provider) For appointments, cancellations or reschedule, call: [phone] documented in this encounterAdena Health System12-17-2024 History of Present illness Narrative* Luisito Hassan APRN.AAKASH - 06/14/2024 8:30 AM EST PALLIATIVE MEDICINE VIRTUAL CONSULT NOTE SERVICE DATE: June 14, 2024 IDENTIFICATION AND INTRODUCTION: Dipti Sierra is a 78 year old male This visit took place Virtually; I have communicated my name and active licensure. The patient's identity and physical location were verified at the time of this visit. 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 Consultation requested by Dayami Garcia MD for an opinion regarding Symptom Management.. My final recommendations will be communicated back to the requesting physician by way of shared Medical record or letter to requesting physician via US mail. CHIEF COMPLAINT: Neoplasm Pain PERTINENT MEDICAL HISTORY: Stage IV colon cancer with mets to lung and liver diagnosed in 2021. Cancer managed by Dr. Bar with last OV on 03/01 with their office. On FOLFOX with bevacizumab since December. DM, CAD, OAS on CPAP Subjective I met with Mr. Sierra and his via virtual visit, he is alert oriented x 3, no acute distress. He is tolerating his treatment very well, he has minimal side effects. He tells me he has no pain, weight and appetite are stable, no shortness of breath, no edema. No significant emotional or sleep disturbance. He has all of his advanced directives in place. Mr. Sierra has a distrust of the medical system, he describes how he was misdiagnosed for 2 years,he had many expensive test done and it took going to another hospital system to have the cancer diagnosed. This journey his cost him a lot both emotionally, physically, and financially. He is tired of beingbounced around to doctors and is understandably. upset that this palliative medical appointment wasscheduled when he had no need for it. REVIEW OF SYSTEMS: Modified ESAS ([place] Symptom Assessment Scale) Information Provided By: Patient Pain: None Nausea: None Loss of Appetite: None Constipation: None Shortness of Breath: None Drowsiness: None Tiredness: None Depression: None Anxiety: None Objective PHYSICAL EXAMINATION: There were no vitals taken for this visit. General Appearance: No apparent distress Skin: No jaundice and No rash Eyes: Normal and No Icterus HENT: Atraumatic and No mucosal ulcerations Neck: Grossly normal and No masses Lungs: Normal effort, no cough CV: Not examined Abdomen: Not examined Musculoskeletal: Not examined Lymphatics: Not examined Neuro: Not examined Psych: Not examined DATA: Diagnostic tests reviewed for today's visit: Most recent labs and imaging results. Creatinine Date Value Ref Range Status 06/08/2024 0.76 0.73 - 1.22 mg/dL Final Estimated Creatinine Clearance: 84.6 mL/min (based on SCr of 0.76 mg/dL). Opioid Management: No Assessment & Plan (Z51.5) Palliative care by specialist (primary encounter diagnosis) - Introduced philosophy of palliative medicine and hospice to family. - Discussed services offered by [facility] and hospice - Provided support to family - MPOA and Living will in place - Remains Full Code - Thankfully Mr. Haywood has no symptoms that need to be managed at this time and will reach out if symptom burden increases. He does not wish additional visits and copays if not necessary. (C18.9, C78.7) 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) (C18.9, C78.00) Colon cancer metastasized to lung - Follow with Oncology Some elements copied from PCP note on 03/08/24, the elements have been updated and all reflect current decision making from today, 06/14/2024. I spent a total of 35 minutes on the date of the service which included preparing to see the patient, [id number] patient care, completing clinical documentation, obtaining and/or reviewing separately obtained history, performing a medically appropriate examination, counseling and educating the pat ient/family/caregiver, communicating with other HCPs (not separately reported), independently interpreting results (not separately reported), and care coordination (not separately reported). Next Visit: Pt declines Services Palliative Medicine Nurse to do telephonic follow-up: No Patient Support Assistant Services: None at this time Referral to Sub Prior: No, not at this time Luisito Hassan NP, HODA.OPERATIONS PROGRAM MANAGER June 14, 2024 8:06 AM This note may have been partially generated using the [employer] voice recognition system. While every effort was made to correct voice recognition errors, kindly be aware that some errors may occasionally occur. documented in this encounterAdena Health System12-17-2024 NoteR[facility]11-26-2024 NoteRiverview Health Institute11-26-2024 History of Present illness Narrative* Aarti Bar, - 05/24/2024 9:54 AM EST Oncologic problem(s): 1) Metastatic adenocarcinoma of the cecum. HPI: The patient is a 78-year-old male with a past medical history as outlined below. Had a colonoscopy in 2018 during which evidently showed one polyp. Had about 2 year history right abdominal pain. Insomnia. Had work up [facility] 02/2022. Admitted to [facility] in September with hemoglobin of 5.5 g/dL and black tarry stools. Got 3 units RBCs and IV iron. CTA 10/20/2023: 1. No acute pulmonary emboli. 2. There is a mass in the cecum measuring approximately 6.7 cm in greatest dimension consistent with colon cancer. There are a few mildly enlarged mesenteric lymph nodes in the right lower quadrant likely representing local metastatic rolando disease. 3. Multiple ill-defined low-density metastatic lesions in the liver. 4. Numerous metastatic nodules and masses throughout both lungs. A few of these lesions abut the pleural surface but do not clearly invade into the chest wall. 5. Hazy ground-glass density throughout the lungs likely related to pulmonary edema. No pleural effusion. 6. There are a few small to borderline enlarged mediastinal and hilar lymph nodes that are nonspecific. Colonoscopy 10/20/2023: A frond-like/villous non-obstructing large mass was found in the cecum. No bleeding was present. Biopsies were taken with a cold forceps for histology. Multiple small and large-mouthed diverticula were found in the sigmoid colon and descending colon. External hemorrhoids were found. The hemorrhoids were small. EGD was unremarkable. Underwent robotic right hemicolectomy, small bowel resection, liver biopsy and port placement on 10/21/2023. COLON: ADENOCARCINOMA Procedure: Right hemicolectomy Macroscopic evaluation of mesorectum (for rectal cancer): Not applicable Tumor site: Cecum Histologic type: Adenocarcinoma Histologic grade: G2: Moderately differentiated Tumor size: 10 cm Multiple primary sites: Not applicable (no additional primary sites present) Tumor extent: Directly invades or adheres to adjacent structure(s): Small bowel Submucosal Invasion (for pT1 tumors only) Not applicable (not a pT1 tumor) Macroscopic tumor perforation: Not identified Lymphatic and/or vascular invasion: Not identified Perineural invasion: Not identified Tumor budding score: High (10 or more) Treatment effect: No known presurgical therapy Margins: Margin status for invasive carcinoma: All margins negative for invasive carcinoma Margin status for non-invasive tumor: All margins negative for high-grade dysplasia / intramucosal carcinoma and low-grade dysplasia Regional lymph nodes: Regional lymph node status: Tumor present in regional lymph node(s) Number of lymph nodes with tumor: 2 Number of lymph nodes examined: 31 Tumor deposits: Present (count = 1) Distant site(s) involved: Liver AJCC 8th edition pathologic stage: Modified Classification: Not applicable pT4b pN1b pM1a MMR Studies (performed on current case) MLH1: Intact protein expression. MSH2: Intact protein expression. MSH6: Intact protein expression. PMS2: Intact protein expression. A. Liver, biopsy: Adenocarcinoma, morphologically consistent with metastatic colonic primary. B. Colon, right hemicolectomy: Invasive moderately differentiated adenocarcinoma. See synoptic report. PET 11/25/2023--demonstrated postsurgical changes in the abdomen. There are hypermetabolic bilaterallung masses and hypermetabolic right hilar adenopathy suspicious for metastatic disease. The largest of the bilateral lung masses measured up to 4.2 x 5.5 cm on the right. Multiple hypermetabolic liver masses measuring up to 4.1 were observed. Spleen size was noted to be borderline. No bone metastases observed. Per initial OV: Feeling much better. No pain. Bowels moving regularly. Mostly formed stools. Occasionally loose. No other GI symptoms. No longer short of breath. Past Medical History: Diabetes mellitus (HCC) Hyperlipidemia Hypertension Sleep apnea has a CPAP Past Surgical History: Procedure Laterality Date ANKLE ARTHROSCOPY W/ OPEN REPAIR Left 1967 APPENDECTOMY 1961 CARDIAC CATHETERIZATION N/A 02/10/2022 Procedure: Left Heart Cath Possbile PTCA/Stent; Surgeon: Baljinder Banegas MD; Location: [facility]; Service: Cardiovascular CARDIAC CATHETERIZATION N/A 02/10/2022 Procedure: Coronary Angiogram; Surgeon: Baljinder Banegas MD; Location: [facility]; Service: Cardiovascular CARDIAC CATHETERIZATION N/A 02/10/2022 Procedure: Instant Wave Free Ratio; Surgeon: Baljinder Banegas MD; Location: [facility]; Service: Cardiovascular CARDIAC CATHETERIZATION N/A 02/10/2022 Procedure: Fractional Flow Ruffin; Surgeon: Baljinder Banegas MD; Location: [facility]; Service: Cardiovascular COLONOSCOPY N/A 10/20/2023 Procedure: COLONOSCOPY with biopsy; Surgeon: Joe Rojas MD; Location: [facility]; Service: Gastroenterology CT COLONOSCOPY 03/01/[address] COLONOSCOPY 07/16/2018 CT COLONOSCOPY EGD N/A 10/20/2023 Procedure: ESOPHAGOGASTRODUODENOSCOPY; Surgeon: Joe Rojas MD; Location: Endo; Service: Gastroenterology INSERTION SUBCUTANEOUS PORT N/A 10/21/2023 Procedure: INSERTION SUBCUTANEOUS PORT; Surgeon: Austen Hall MD; Location: Main OR; Service: [employer] KNEE ARTHROPLASTY Right 1999 MT LAPS COLECTOMY PRTL W/RMVL TERMINAL ILEUM Right 10/21/2023 Procedure: COLECTOMY RIGHT ROBOTIC XI AND SMALL BOWEL RESECTION WITH LYMPH NODE DISSECTION AND LIVER BIOPSY; Surgeon: Austen Hall MD; Location: Main OR; Service: [employer] Social History Marital status: Tobacco Use Smoking status: Smokeless tobacco: Never Vaping Use Vaping Use: Never used Substance and Sexual Activity Alcohol use: Never Drug use: Never Sexual activity: Not Currently Family History Problem Relation Age of Onset Heart attack Mother Sister had breast cancer and at age 53 Current therapy: 1) FOLFOX with meli. Following cycle #2 which was administered on 01/19, he had onset of nausea and vomiting 01/26. 2 episodes. Following that he had diarrhea. Symptoms abated somewhat but worsened and he went to the ER. Had a CT of the abdomen pelvis which redemonstrated metastatic disease to liver and lung. There were findings of right prior hemicolectomy with some inflammatory changes in the distal terminal ileum atthe site of anastomosis. He was given hydration and discharged home. All was due to a supplemental drink he was using. He stopped it and has not had any nausea since. Presents for ongoing oncologic management. 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 No symptoms of sensory neuropathy currently. Diarrhea for about 3 days in a row. Self resolved. ROS: Constitutional: No fever. No drenching night sweats. Neuro: No recent SARAH, vertigo, dizziness or imbalance. HEENT: No recent change in voice, vision or hearing. Resp: No cough, wheeze of hemoptysis. No shortness of breath at rest. No FERNANDEZ. CVS: No exertional chest pain, PND or orthopnea. No extremity swelling/edema. No symptoms of claudication. No painful or tender varicose veins. GI: See HPI. : No dysuria or gross hematuria. Endo: No hot flashes. No polyuria or polydipsia. No heat or cold intolerance. Musculoskeletal: No bone, back, joint and muscular pain. Derm: No current rash. No history of jaundice. No diffuse pruritis. Heme: No unusual bleeding and unexplained bruising. Psych: Normal mood. PHYSICAL EXAM: Vitals: Blood pressure 144/75, pulse 65, temperature 36.6 C (97.8 F), temperature source Temporal, weight 93.4 kg (206 lb), SpO2 97%. Well-appearing and in no acute distress. EYES: Sclerae are anicteric bilaterally. LYMPHATIC: There is no palpable cervical, supraclavicular adenopathy. RESPIRATORY: Inspiratory breath sounds are of normal intensity in all farfan. No rales, wheezes or rhonchi. CARDIOVASCULAR: Rhythm is regular. ABDOMEN: The abdomen is nondistended. No splenomegaly or hepatomegaly. No tenderness. SKIN: No jaundice. LABS: NGS/biomarkers/route driver mutation analyses: pMRR. KRAS mutation. ASSESSMENT/PLAN: (C18.0) Cancer of cecum (HCC) (primary encounter diagnosis) (C18.9, C78.00) 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) (C18.9, C78.7) 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) (D51.9) Anemia due to vitamin B12 deficiency, unspecified B12 deficiency type (Z86.39) History of iron deficiency (K52.1, T45.1X5A) Chemotherapy induced diarrhea Assessment: -pT4b pN1b 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 -PS is 90%. -Comorbid conditions: DM2 (no neuropathy), hypertension, hyperlipidemia and BRYCE. -Tolerating FOLFOX with bevacizumab very well. -Blood pressure controlled. -History of iron deficiency received parenteral iron. Nice improvement in hemoglobin. -CTs 03/21--Objective response of liver metastases. Stable disease in the lungs. However, baseline comparator scans were done in September which was about 2-1/2 months prior to him starting therapy. -Stable to improving anemia. -CEA trending lower. -Tolerating treatment well. Reviewed CBC. ANC on the lower side but allows for continued treatment.Benefit outweighs risk. -Diarrhea secondary to chemotherapy. This has not been a consistent side effect but lasted longer this past cycle. Plan: -Continue current therapy. Okay for cycle #9 tomorrow. -Advised Imodium prn diarrhea. -CTs after the holidays. -Monitor CEA. -Monthly B12 injections. -Monitor urine monthly for proteinuria. -Recheck iron as indicated. Portions of this documentation were copied and pasted from previous office visit notes in order to provide a cohesive continuity of the history. The note has been reviewed and edited and updated as necessary. Aarti Bar DO documented in this encounterAdena Health System10-30-2024 NoteR[facility] Institute10-30-2024 History of Present illness Narrative* Heather Aguilar RN - 04/27/2024 9:35 AM EDT pt unable to give urine sample for treatment. he was unaware he needed to. are we ok to proceed with treatment without. I can collect one during treatment if needed ?? 29 mins PM Aarti Bar, Yes, okay for him to get treated. Can get UA later today or next time. 23 mins wonderful thank you Pt did give sample today negative urine protein. documented in this encounterAdena Health System10-29-2024 NoteRiverview [facility] Institute10-29-2024 History of Present illness Narrative* Aarti Bar, DO - 04/26/2024 10:10 AM EDT Oncologic problem(s): 1) Metastatic adenocarcinoma of the cecum. HPI: The patient is a 78-year-old male with a past medical history as outlined below. Had a colonoscopy in 2018 during which evidently showed one polyp. Had about 2 year history right abdominal pain. Insomnia. Had work up [facility] 02/2022. Admitted to [facility] in September with hemoglobin of 5.5 g/dL and black tarry stools. Got 3 units RBCs and IV iron. CTA 10/20/2023: 1. No acute pulmonary emboli. 2. There is a mass in the cecum measuring approximately 6.7 cm in greatest dimension consistent with colon cancer. There are a few mildly enlarged mesenteric lymph nodes in the right lower quadrant likely representing local metastatic rolando disease. 3. Multiple ill-defined low-density metastatic lesions in the liver. 4. Numerous metastatic nodules and masses throughout both lungs. A few of these lesions abut the pleural surface but do not clearly invade into the chest wall. 5. Hazy ground-glass density throughout the lungs likely related to pulmonary edema. No pleural effusion. 6. There are a few small to borderline enlarged mediastinal and hilar lymph nodes that are nonspecific. Colonoscopy 10/20/2023: A frond-like/villous non-obstructing large mass was found in the cecum. No bleeding was present. Biopsies were taken with a cold forceps for histology. Multiple small and large-mouthed diverticula were found in the sigmoid colon and descending colon. External hemorrhoids were found. The hemorrhoids were small. EGD was unremarkable. Underwent robotic right hemicolectomy, small bowel resection, liver biopsy and port placement on 10/21/2023. COLON: ADENOCARCINOMA Procedure: Right hemicolectomy Macroscopic evaluation of mesorectum (for rectal cancer): Not applicable Tumor site: Cecum Histologic type: Adenocarcinoma Histologic grade: G2: Moderately differentiated Tumor size: 10 cm Multiple primary sites: Not applicable (no additional primary sites present) Tumor extent: Directly invades or adheres to adjacent structure(s): Small bowel Submucosal Invasion (for pT1 tumors only) Not applicable (not a pT1 tumor) Macroscopic tumor perforation: Not identified Lymphatic and/or vascular invasion: Not identified Perineural invasion: Not identified Tumor budding score: High (10 or more) Treatment effect: No known presurgical therapy Margins: Margin status for invasive carcinoma: All margins negative for invasive carcinoma Margin status for non-invasive tumor: All margins negative for high-grade dysplasia / intramucosal carcinoma and low-grade dysplasia Regional lymph nodes: Regional lymph node status: Tumor present in regional lymph node(s) Number of lymph nodes with tumor: 2 Number of lymph nodes examined: 31 Tumor deposits: Present (count = 1) Distant site(s) involved: Liver AJCC 8th edition pathologic stage: Modified Classification: Not applicable pT4b pN1b pM1a MMR Studies (performed on current case) MLH1: Intact protein expression. MSH2: Intact protein expression. MSH6: Intact protein expression. PMS2: Intact protein expression. A. Liver, biopsy: Adenocarcinoma, morphologically consistent with metastatic colonic primary. B. Colon, right hemicolectomy: Invasive moderately differentiated adenocarcinoma. See synoptic report. PET 11/25/2023--demonstrated postsurgical changes in the abdomen. There are hypermetabolic bilaterallung masses and hypermetabolic right hilar adenopathy suspicious for metastatic disease. The largest of the bilateral lung masses measured up to 4.2 x 5.5 cm on the right. Multiple hypermetabolic liver masses measuring up to 4.1 were observed. Spleen size was noted to be borderline. No bone metastases observed. Per initial OV: Feeling much better. No pain. Bowels moving regularly. Mostly formed stools. Occasionally loose. No other GI symptoms. No longer short of breath. Past Medical History: Diabetes mellitus (HCC) Hyperlipidemia Hypertension Sleep apnea has a CPAP Past Surgical History: Procedure Laterality Date ANKLE ARTHROSCOPY W/ OPEN REPAIR Left 1967 APPENDECTOMY 1961 CARDIAC CATHETERIZATION N/A 02/10/2022 Procedure: Left Heart Cath Possbile PTCA/Stent; Surgeon: Baljinder Banegas MD; Location: [facility]; Service: Cardiovascular CARDIAC CATHETERIZATION N/A 02/10/2022 Procedure: Coronary Angiogram; Surgeon: Baljidner Banegas MD; Location: [facility]; Service: Cardiovascular CARDIAC CATHETERIZATION N/A 02/10/2022 Procedure: Instant Wave Free Ratio; Surgeon: Baljinder Banegas MD; Location: [facility]; Service: Cardiovascular CARDIAC CATHETERIZATION N/A 02/10/2022 Procedure: Fractional Flow Ruffin; Surgeon: Baljinder Banegas MD; Location: [facility]; Service: Cardiovascular COLONOSCOPY N/A 10/20/2023 Procedure: COLONOSCOPY with biopsy; Surgeon: Joe Rojas MD; Location: Endo; Service: Gastroenterology CT COLONOSCOPY 03/01/[address] COLONOSCOPY 07/16/2018 CT COLONOSCOPY EGD N/A 10/20/2023 Procedure: ESOPHAGOGASTRODUODENOSCOPY; Surgeon: Joe Rojas MD; Location: Endo; Service: Gastroenterology INSERTION SUBCUTANEOUS PORT N/A 10/21/2023 Procedure: INSERTION SUBCUTANEOUS PORT; Surgeon: Austen Hall MD; Location: Main OR; Service: [employer] KNEE ARTHROPLASTY Right 1999 MT LAPS COLECTOMY PRTL W/RMVL TERMINAL ILEUM Right 10/21/2023 Procedure: COLECTOMY RIGHT ROBOTIC XI AND SMALL BOWEL RESECTION WITH LYMPH NODE DISSECTION AND LIVER BIOPSY; Surgeon: Austen Hall MD; Location: Main OR; Service: [employer] Social History Marital status: Tobacco Use Smoking status: Smokeless tobacco: Never Vaping Use Vaping Use: Never used Substance and Sexual Activity Alcohol use: Never Drug use: Never Sexual activity: Not Currently Family History Problem Relation Age of Onset Heart attack Mother Sister had breast cancer and at age 53 Current therapy: 1) FOLFOX with meli. Following cycle #2 which was administered on 01/19, he had onset of nausea and vomiting 01/26. 2 episodes. Following that he had diarrhea. Symptoms abated somewhat but worsened and he went to the ER. Had a CT of the abdomen pelvis which redemonstrated metastatic disease to liver and lung. There were findings of right prior hemicolectomy with some inflammatory changes in the distal terminal ileum atthe site of anastomosis. He was given hydration and discharged home. All was due to a supplemental drink he was using. He stopped it and has not had any nausea since. Presents for ongoing oncologic management. 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 No symptoms of sensory neuropathy currently. Good appetite. No nausea. Bowels moving regularly with formed stools. Still only diarrhea if eats anything greasy. No black or bloody stools. Good energy. ROS: Constitutional: No fever. No drenching night sweats. Neuro: No recent SARAH, vertigo, dizziness or imbalance. HEENT: No recent change in voice, vision or hearing. Resp: No cough, wheeze of hemoptysis. No shortness of breath at rest. No FERNANDEZ. CVS: No exertional chest pain, PND or orthopnea. No extremity swelling/edema. No symptoms of claudication. No painful or tender varicose veins. GI: See HPI. : No dysuria or gross hematuria. Endo: No hot flashes. No polyuria or polydipsia. No heat or cold intolerance. Musculoskeletal: No bone, back, joint and muscular pain. Derm: No current rash. No history of jaundice. No diffuse pruritis. Heme: No unusual bleeding and unexplained bruising. Psych: Normal mood. PHYSICAL EXAM: Vitals: Blood pressure 150/77, pulse 64, temperature 36.3 C (97.3 F), temperature source Temporal, weight 92.5 kg (204 lb), SpO2 96%. Well-appearing and in no acute distress. EYES: Sclerae are anicteric bilaterally. LYMPHATIC: There is no palpable cervical, supraclavicular adenopathy. RESPIRATORY: Inspiratory breath sounds are of normal intensity in all farfan. No rales, wheezes or rhonchi. CARDIOVASCULAR: Rhythm is regular. ABDOMEN: The abdomen is nondistended. No splenomegaly or hepatomegaly. No tenderness. SKIN: No jaundice. LABS: Latest Ref Rng 04/26/2024 WBC 3.70 - 11.00 k/uL 3.46 (L) RBC 4.20 - 6.00 m/uL 3.44 (L) Hemoglobin 13.0 - 17.0 g/dL 9.9 (L) Hematocrit 39.0 - 51.0 % 32.7 (L) MCV 80.0 - 100.0 fL 95.1 MCH 26.0 - 34.0 pg 28.8 MCHC 30.5 - 36.0 g/dL 30.3 (L) RDW-CV 11.5 - 15.0 % 22.9 (H) Platelet Count 150 - 400 k/uL 133 (L) MPV 9.0 - 12.7 fL 9.4 Neut% % 62.1 Abs Neut (ANC) 1.45 - 7.50 k/uL 2.15 Lymph% % 23.7 Abs Lymph 1.00 - 4.00 k/uL 0.82 (L) Medina% % 11.3 Abs Medina <0.87 k/uL 0.39 Eosin% % 2.0 Abs Eosin <0.46 k/uL 0.07 Baso% % 0.0 Abs Baso <0.11 k/uL <0.03 Immature Gran % % 0.9 IMMATURE GRANS (ABS) <0.10 k/uL 0.03 NRBC /100 WBC 0.0 Absolute nRBC <0.01 k/uL <0.01 DTYPE Auto NGS/biomarkers/route driver mutation analyses: pMRR. KRAS mutation. 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 -PS is 90%. -Comorbid conditions: DM2 (no neuropathy), hypertension, hyperlipidemia and BRYCE. -Tolerating FOLFOX with bevacizumab very well. -Blood pressure controlled. -History of iron deficiency received parenteral iron. Nice improvement in hemoglobin. -CTs 03/21--Objective response of liver metastases. Stable disease in the lungs. However, baseline comparator scans were done in September which was about 2-1/2 months prior to him starting therapy. -Stable to improving anemia. -Answered questions--Again discussed the goals of therapy are palliation and prolongation of survival. Explained that he will require treatment lifelong but that some patients do require an occasional chemotherapy holiday. Discussed that oxaliplatin typically omitted after 9-12 cycles pending neuropathy symptoms. -CEA trending lower. -Tolerating treatment well. Benefit continues to outweigh risks. Plan: -Continue current therapy. Okay for next cycle tomorrow. -CTs after the holidays. -Counts and chemistries each cycle. -Monitor CEA. -Monthly B12 injections. -Monitor urine for proteinuria. Portions of this documentation were copied and pasted from previous office visit notes in order to provide a cohesive continuity of the history. The note has been reviewed and edited and updated as necessary. Aarti Bar DO documented in this encounterA[facility]24 [facility] History of Present illness Narrative* Aarti Bar DO - 04/12/2024 10:44 AM EDT Oncologic problem(s): 1) Metastatic adenocarcinoma of the cecum. HPI: The patient is a 78-year-old male with a past medical history as outlined below. Had a colonoscopy in 2019 during which evidently showed one polyp. Had about 2 year history right abdominal pain. Insomnia. Had work up [facility] 02/2022. Admitted to [facility] in September with hemoglobin of 5.5 g/dL and black tarry stools. Got 3 units RBCs and IV iron. CTA 10/20/2023: 1. No acute pulmonary emboli. 2. There is a mass in the cecum measuring approximately 6.7 cm in greatest dimension consistent with colon cancer. There are a few mildly enlarged mesenteric lymph nodes in the right lower quadrant likely representing local metastatic rolando disease. 3. Multiple ill-defined low-density metastatic lesions in the liver. 4. Numerous metastatic nodules and masses throughout both lungs. A few of these lesions abut the pleural surface but do not clearly invade into the chest wall. 5. Hazy ground-glass density throughout the lungs likely related to pulmonary edema. No pleural effusion. 6. There are a few small to borderline enlarged mediastinal and hilar lymph nodes that are nonspecific. Colonoscopy 10/20/2023: A frond-like/villous non-obstructing large mass was found in the cecum. No bleeding was present. Biopsies were taken with a cold forceps for histology. Multiple small and large-mouthed diverticula were found in the sigmoid colon and descending colon. External hemorrhoids were found. The hemorrhoids were small. EGD was unremarkable. Underwent robotic right hemicolectomy, small bowel resection, liver biopsy and port placement on 10/21/2023. COLON: ADENOCARCINOMA Procedure: Right hemicolectomy Macroscopic evaluation of mesorectum (for rectal cancer): Not applicable Tumor site: Cecum Histologic type: Adenocarcinoma Histologic grade: G2: Moderately differentiated Tumor size: 10 cm Multiple primary sites: Not applicable (no additional primary sites present) Tumor extent: Directly invades or adheres to adjacent structure(s): Small bowel Submucosal Invasion (for pT1 tumors only) Not applicable (not a pT1 tumor) Macroscopic tumor perforation: Not identified Lymphatic and/or vascular invasion: Not identified Perineural invasion: Not identified Tumor budding score: High (10 or more) Treatment effect: No known presurgical therapy Margins: Margin status for invasive carcinoma: All margins negative for invasive carcinoma Margin status for non-invasive tumor: All margins negative for high-grade dysplasia / intramucosal carcinoma and low-grade dysplasia Regional lymph nodes: Regional lymph node status: Tumor present in regional lymph node(s) Number of lymph nodes with tumor: 2 Number of lymph nodes examined: 31 Tumor deposits: Present (count = 1) Distant site(s) involved: Liver AJCC 8th edition pathologic stage: Modified Classification: Not applicable pT4b pN1b pM1a MMR Studies (performed on current case) MLH1: Intact protein expression. MSH2: Intact protein expression. MSH6: Intact protein expression. PMS2: Intact protein expression. A. Liver, biopsy: Adenocarcinoma, morphologically consistent with metastatic colonic primary. B. Colon, right hemicolectomy: Invasive moderately differentiated adenocarcinoma. See synoptic report. PET 11/25/2023--demonstrated postsurgical changes in the abdomen. There are hypermetabolic bilaterallung masses and hypermetabolic right hilar adenopathy suspicious for metastatic disease. The largest of the bilateral lung masses measured up to 4.2 x 5.5 cm on the right. Multiple hypermetabolic liver masses measuring up to 4.1 were observed. Spleen size was noted to be borderline. No bone metastases observed. Per initial OV: Feeling much better. No pain. Bowels moving regularly. Mostly formed stools. Occasionally loose. No other GI symptoms. No longer short of breath. Past Medical History: Diabetes mellitus (HCC) Hyperlipidemia Hypertension Sleep apnea has a CPAP Past Surgical History: Procedure Laterality Date ANKLE ARTHROSCOPY W/ OPEN REPAIR Left 1966 APPENDECTOMY 1961 CARDIAC CATHETERIZATION N/A 02/10/2022 Procedure: Left Heart Cath Possbile PTCA/Stent; Surgeon: Baljinder Banegas MD; Location: [facility]; Service: Cardiovascular CARDIAC CATHETERIZATION N/A 02/10/2022 Procedure: Coronary Angiogram; Surgeon: Baljinder Banegas MD; Location: [facility]; Service: Cardiovascular CARDIAC CATHETERIZATION N/A 02/10/2022 Procedure: Instant Wave Free Ratio; Surgeon: Baljinder Banegas MD; Location: [facility]; Service: Cardiovascular CARDIAC CATHETERIZATION N/A 02/10/2022 Procedure: Fractional Flow Ruffin; Surgeon: Baljinder Banegas MD; Location: [facility]; Service: Cardiovascular COLONOSCOPY N/A 10/20/2023 Procedure: COLONOSCOPY with biopsy; Surgeon: Joe Rojas MD; Location: Endo; Service: Gastroenterology CT COLONOSCOPY 03/01/[address] COLONOSCOPY 07/16/2018 CT COLONOSCOPY EGD N/A 10/20/2023 Procedure: ESOPHAGOGASTRODUODENOSCOPY; Surgeon: Joe Rojas MD; Location: [facility]; Service: Gastroenterology INSERTION SUBCUTANEOUS PORT N/A 10/21/2023 Procedure: INSERTION SUBCUTANEOUS PORT; Surgeon: Austen Hall MD; Location: Main OR; Service: [employer] KNEE ARTHROPLASTY Right 1999 MT LAPS COLECTOMY PRTL W/RMVL TERMINAL ILEUM Right 10/21/2023 Procedure: COLECTOMY RIGHT ROBOTIC XI AND SMALL BOWEL RESECTION WITH LYMPH NODE DISSECTION AND LIVER BIOPSY; Surgeon: Austen Hall MD; Location: Main OR; Service: [employer] Social History Marital status: Tobacco Use Smoking status: Smokeless tobacco: Never Vaping Use Vaping Use: Never used Substance and Sexual Activity Alcohol use: Never Drug use: Never Sexual activity: Not Currently Family History Problem Relation Age of Onset Heart attack Mother Sister had breast cancer and at age 53 Current therapy: 1) FOLFOX with meli. Following cycle #2 which was administered on 01/19, he had onset of nausea and vomiting 01/26. 2 episodes. Following that he had diarrhea. Symptoms abated somewhat but worsened and he went to the ER. Had a CT of the abdomen pelvis which redemonstrated metastatic disease to liver and lung. There were findings of right prior hemicolectomy with some inflammatory changes in the distal terminal ileum atthe site of anastomosis. He was given hydration and discharged home. All was due to a supplemental drink he was using. He stopped it and has not had any nausea since. Presents for ongoing oncologic management. 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 No symptoms of sensory neuropathy currently. Good appetite. No nausea. Bowels moving regularly with formed stools. Diarrhea if eats anything greasy. No black or bloody stools. Less fatigued--getting out and about. I feel better now than I did a year ago. ROS: Constitutional: No fever. No drenching night sweats. Neuro: No recent SARAH, vertigo, dizziness or imbalance. HEENT: No recent change in voice, vision or hearing. Resp: No cough, wheeze of hemoptysis. No shortness of breath at rest. No FERNANDEZ. CVS: No exertional chest pain, PND or orthopnea. No extremity swelling/edema. No symptoms of claudication. No painful or tender varicose veins. GI: See HPI. : No dysuria or gross hematuria. Endo: No hot flashes. No polyuria or polydipsia. No heat or cold intolerance. Musculoskeletal: No bone, back, joint and muscular pain. Derm: No current rash. No history of jaundice. No diffuse pruritis. Heme: No unusual bleeding and unexplained bruising. Psych: Normal mood. PHYSICAL EXAM: Vitals: Blood pressure 135/54, pulse 75, temperature 36.2 C (97.1 F), temperature source Temporal, weight 92.1 kg (203 lb), SpO2 96%. Well-appearing and in no acute distress. EYES: Sclerae are anicteric bilaterally. LYMPHATIC: There is no palpable cervical, supraclavicular adenopathy. RESPIRATORY: Inspiratory breath sounds are of normal intensity in all farfan. No rales, wheezes or rhonchi. CARDIOVASCULAR: Rhythm is regular. ABDOMEN: The abdomen is nondistended. No splenomegaly or hepatomegaly. No tenderness. SKIN: No jaundice. LABS: Latest Ref Rng 04/12/2024 WBC 3.70 - 11.00 k/uL 5.10 RBC 4.20 - 6.00 m/uL 3.26 (L) Hemoglobin 13.0 - 17.0 g/dL 9.1 (L) Hematocrit 39.0 - 51.0 % 29.7 (L) MCV 80.0 - 100.0 fL 91.1 MCH 26.0 - 34.0 pg 27.9 MCHC 30.5 - 36.0 g/dL 30.6 RDW-CV 11.5 - 15.0 % 23.8 (H) Platelet Count 150 - 400 k/uL 113 (L) MPV 9.0 - 12.7 fL 8.7 (L) Neut% % 78.2 Abs Neut (ANC) 1.45 - 7.50 k/uL 3.99 Lymph% % 12.2 Abs Lymph 1.00 - 4.00 k/uL 0.62 (L) Medina% % 6.1 Abs Medina <0.87 k/uL 0.31 Eosin% % 3.1 Abs Eosin <0.46 k/uL 0.16 Baso% % 0.2 Abs Baso <0.11 k/uL <0.03 Immature Gran % % 0.2 IMMATURE GRANS (ABS) <0.10 k/uL <0.03 NRBC /100 WBC 0.0 Absolute nRBC <0.01 k/uL <0.01 DTYPE Auto Protein, Total 6.3 - 8.0 g/dL 6.6 Albumin 3.9 - 4.9 g/dL 3.8 (L) Calcium 8.5 - 10.2 mg/dL 9.3 Bilirubin, Total 0.2 - 1.3 mg/dL 0.5 Alkaline Phosphatase 38 - 113 U/L 90 AST 14 - 40 U/L 9 (L) ALT 10 - 54 U/L 6 (L) Glucose 74 - 99 mg/dL 207 (H) BUN 9 - 24 mg/dL 14 Creatinine 0.73 - 1.22 mg/dL 0.78 Sodium 136 - 144 mmol/L 136 Potassium 3.7 - 5.1 mmol/L 4.1 Chloride 98 - 107 mmol/L 100 CO2 22 - 30 mmol/L 25 Anion Gap 8 - 15 mmol/L 11 eGFR >=60 mL/min/1.73m 92 Magnesium 1.7 - 2.3 mg/dL 1.8 NGS/biomarkers/route driver mutation analyses: pMRR. KRAS mutation. 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 -PS is . -Comorbid conditions: DM2 (no neuropathy), hypertension, hyperlipidemia and BRYCE. -Tolerating FOLFOX with bevacizumab very well. -Blood pressure controlled. -History of iron deficiency received parenteral iron. Nice improvement in hemoglobin. -CTs 03/21--Objective response of liver metastases. Stable disease in the lungs. However, baseline comparator scans were done in September which was about 2-1/2 months prior to him starting therapy. -Stable anemia. -Again discussed the goals of therapy are palliation and prolongation of survival. Explained that he will require treatment lifelong but that some patients do require an occasional chemotherapy holiday. Discussed that oxaliplatin typically omitted after 9-12 cycles pending neuropathy symptoms. Plan: -Continue current therapy. Okay for next cycle tomorrow. -CTs following 3 more cycles. -Continue monitoring counts and chemistries each cycle. -Monitor CEA. -Monthly B12 injections. -Monitor urine for proteinuria. Portions of this documentation were copied and pasted from previous office visit notes in order to provide a cohesive continuity of the history. The note has been reviewed and edited and updated as necessary. I spent a total of 20 minutes on the date of the service which included preparing to see the patient, [id number] patient care, completing clinical documentation, obtaining and/or reviewing separately obtained history, performing a medically appropriate examination, counseling and educating the pat ient/family/caregiver, ordering medications, tests, or procedures, communicating with other HCPs (not separately reported), and communicating results to the patient/family/caregiver. Aarti Bar DO documented in this encounterAdena [facility] System10-11-2024 Nurse Note* Sindy Luna LPN - 04/08/2024 9:23 AM EDT Patient presents with: Imm/Inj Pt is identified by name and birthdate: Yes. Allergies and medications reviewed. Latex allergy? No. Does this patient have: Unplanned weight loss or gain of greater than 10 pounds, or a change of appetite over the last year? No Does the patient have any concerns about safety in the home/falls? Not at risk for falls Has the patient fallen in the past year? No Does the patient have difficulty performing or completing routine daily living activities? No Does this patient have concerns about personal safety? No Is patient having pain? Pain: No=0 (pain 0 on a scale of 0-10). Health Maintenance: Reviewed and updated. Does patient have MyChart access or Caregiver proxy: yes Pt/Caregiver willingness and readiness to learn assessed: Yes. Barriers: none Cyanocobalamin injection administered, left Deltoid, tolerated well, no immediate adverse reactionsnoted. Sindy Luna LPN [facility]10-[facility] Nurse Note* Sindy Luna LPN - 04/08/2024 9:23 AM EDT Patient presents with: Imm/Inj Pt is identified by name and birthdate: Yes. Allergies and medications reviewed. Latex allergy? No. Does this patient have: Unplanned weight loss or gain of greater than 10 pounds, or a change of appetite over the last year? No Does the patient have any concerns about safety in the home/falls? Not at risk for falls Has the patient fallen in the past year? No Does the patient have difficulty performing or completing routine daily living activities? No Does this patient have concerns about personal safety? No Is patient having pain? Pain: No=0 (pain 0 on a scale of 0-10). Health Maintenance: Reviewed and updated. Does patient have MyChart access or Caregiver proxy: yes Pt/Caregiver willingness and readiness to learn assessed: Yes. Barriers: none Cyanocobalamin injection administered, left Deltoid, tolerated well, no immediate adverse reactionsnoted. Sindy Luna LPN documented in this encounterAdena Health System10-02-2024 NoteHNO ID: [id number] Author: LAUREEN LYONS RN Service: ? Author Type: Registered Nurse Type: Progress Notes Filed: 03/30/2024 13:01 Note Text: Assessment unchanged from 03/29/24 [facility] History of Present illness Narrative* Laureen Lyons RN - 03/30/2024 9:36 AM EDT Assessment unchanged from 03/29/24 office visit with Linsey Bar documented in this encounterAdena Health System10-01-2024 [facility]10-[facility]-2024 History of Present illness Narrative* Aarti BarDO - 03/29/2024 8:26 AM EDT Oncologic problem(s): 1) Metastatic adenocarcinoma of the cecum. HPI: The patient is a 78-year-old male with a past medical history as outlined below. Had a colonoscopy in 2019 during which evidently showed one polyp. Had about 2 year history right abdominal pain. Insomnia. Had work up [facility] 02/2022. Admitted to [facility] in September with hemoglobin of 5.5 g/dL and black tarry stools. Got 3 units RBCs and IV iron. CTA 10/20/2023: 1. No acute pulmonary emboli. 2. There is a mass in the cecum measuring approximately 6.7 cm in greatest dimension consistent with colon cancer. There are a few mildly enlarged mesenteric lymph nodes in the right lower quadrant likely representing local metastatic rolando disease. 3. Multiple ill-defined low-density metastatic lesions in the liver. 4. Numerous metastatic nodules and masses throughout both lungs. A few of these lesions abut the pleural surface but do not clearly invade into the chest wall. 5. Hazy ground-glass density throughout the lungs likely related to pulmonary edema. No pleural effusion. 6. There are a few small to borderline enlarged mediastinal and hilar lymph nodes that are nonspecific. Colonoscopy 10/20/2023: A frond-like/villous non-obstructing large mass was found in the cecum. No bleeding was present. Biopsies were taken with a cold forceps for histology. Multiple small and large-mouthed diverticula were found in the sigmoid colon and descending colon. External hemorrhoids were found. The hemorrhoids were small. EGD was unremarkable. Underwent robotic right hemicolectomy, small bowel resection, liver biopsy and port placement on 10/21/2023. COLON: ADENOCARCINOMA Procedure: Right hemicolectomy Macroscopic evaluation of mesorectum (for rectal cancer): Not applicable Tumor site: Cecum Histologic type: Adenocarcinoma Histologic grade: G2: Moderately differentiated Tumor size: 10 cm Multiple primary sites: Not applicable (no additional primary sites present) Tumor extent: Directly invades or adheres to adjacent structure(s): Small bowel Submucosal Invasion (for pT1 tumors only) Not applicable (not a pT1 tumor) Macroscopic tumor perforation: Not identified Lymphatic and/or vascular invasion: Not identified Perineural invasion: Not identified Tumor budding score: High (10 or more) Treatment effect: No known presurgical therapy Margins: Margin status for invasive carcinoma: All margins negative for invasive carcinoma Margin status for non-invasive tumor: All margins negative for high-grade dysplasia / intramucosal carcinoma and low-grade dysplasia Regional lymph nodes: Regional lymph node status: Tumor present in regional lymph node(s) Number of lymph nodes with tumor: 2 Number of lymph nodes examined: 31 Tumor deposits: Present (count = 1) Distant site(s) involved: Liver AJCC 8th edition pathologic stage: Modified Classification: Not applicable pT4b pN1b pM1a MMR Studies (performed on current case) MLH1: Intact protein expression. MSH2: Intact protein expression. MSH6: Intact protein expression. PMS2: Intact protein expression. A. Liver, biopsy: Adenocarcinoma, morphologically consistent with metastatic colonic primary. B. Colon, right hemicolectomy: Invasive moderately differentiated adenocarcinoma. See synoptic report. PET 11/25/2023--demonstrated postsurgical changes in the abdomen. There are hypermetabolic bilaterallung masses and hypermetabolic right hilar adenopathy suspicious for metastatic disease. The largest of the bilateral lung masses measured up to 4.2 x 5.5 cm on the right. Multiple hypermetabolic liver masses measuring up to 4.1 were observed. Spleen size was noted to be borderline. No bone metastases observed. Per initial OV: Feeling much better. No pain. Bowels moving regularly. Mostly formed stools. Occasionally loose. No other GI symptoms. No longer short of breath. Past Medical History: Diabetes mellitus (HCC) Hyperlipidemia Hypertension Sleep apnea has a CPAP Past Surgical History: Procedure Laterality Date ANKLE ARTHROSCOPY W/ OPEN REPAIR Left 1967 APPENDECTOMY 1962 CARDIAC CATHETERIZATION N/A 02/10/2022 Procedure: Left Heart Cath Possbile PTCA/Stent; Surgeon: Baljinder Banegas MD; [facility]; Service: Cardiovascular CARDIAC CATHETERIZATION N/A 02/10/2022 Procedure: Coronary Angiogram; Surgeon: Baljinder Banegas MD; Location: [facility]; Service: Cardiovascular CARDIAC CATHETERIZATION N/A 02/10/2022 Procedure: Instant Wave Free Ratio; Surgeon: Baljinder Banegas MD; Location: [facility]; Service: Cardiovascular CARDIAC CATHETERIZATION N/A 02/10/2022 Procedure: Fractional Flow Ruffin; Surgeon: Baljinder Banegas MD; Location: [facility]; Service: Cardiovascular COLONOSCOPY N/A 10/20/2023 Procedure: COLONOSCOPY with biopsy; Surgeon: Joe Rojas MD; Location: Endo; Service: Gastroenterology CT COLONOSCOPY 03/01/[address] COLONOSCOPY 07/16/2018 CT COLONOSCOPY EGD N/A 10/20/2023 Procedure: ESOPHAGOGASTRODUODENOSCOPY; Surgeon: Joe Rojas MD; Location: [facility]; Service: Gastroenterology INSERTION SUBCUTANEOUS PORT N/A 10/21/2023 Procedure: INSERTION SUBCUTANEOUS PORT; Surgeon: Austen Hall MD; Location: Main OR; Service: [employer] KNEE ARTHROPLASTY Right 1999 MT LAPS COLECTOMY PRTL W/RMVL TERMINAL ILEUM Right 10/21/2023 Procedure: COLECTOMY RIGHT ROBOTIC XI AND SMALL BOWEL RESECTION WITH LYMPH NODE DISSECTION AND LIVER BIOPSY; Surgeon: Austen Hall MD; Location: Main OR; Service: [employer] Social History Marital status: Tobacco Use Smoking status: Smokeless tobacco: Never Vaping Use Vaping Use: Never used Substance and Sexual Activity Alcohol use: Never Drug use: Never Sexual activity: Not Currently Family History Problem Relation Age of Onset Heart attack Mother Sister had breast cancer and at age 53 Current therapy: 1) FOLFOX with meli. Following cycle #2 which was administered on 01/19, he had onset of nausea and vomiting 01/26. 2 episodes. Following that he had diarrhea. Symptoms abated somewhat but worsened and he went to the ER. Had a CT of the abdomen pelvis which redemonstrated metastatic disease to liver and lung. There were findings of right prior hemicolectomy with some inflammatory changes in the distal terminal ileum atthe site of anastomosis.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 chemotherapy treatment. glimepiride (AMARYL) 4 mg tablet Take 4 mg by mouth once daily. rosuvastatin (CRESTOR) 10 mg tablet Take 10 mg by mouth once daily. pioglitazone (ACTOS) 30 mg tablet Take 30 mg by mouth once daily. hydroCHLOROthiazide 12.5 mg tablet Take 12.5 mg by mouth once daily. Magnesium Chloride (SLOW-MAG) 71.5 mg TbEC Take 1 tablet by mouth two times a day. (Patient not taking: Reported on 02/02/2024) lidocaine-prilocaine (EMLA) 2.5-2.5 % cream Apply to affected area as needed. prochlorperazine (COMPAZINE) 10 mg tablet Take 1 tablet by mouth every 6 hours as needed. ondansetron (ZOFRAN) 8 mg tablet Take 1 tablet by mouth every 8 hours as needed for nausea/vomiting. zolpidem (AMBIEN) 5 mg tablet Take 10 mg by mouth at bedtime as needed. mometasone (NASONEX) 50 mcg/actuation nasal spray Use 2 Sprays in the nose once daily. azelastine 0.1% nasal spray Use 2 Sprays in each nostril two times a day. acetaminophen (TYLENOL) 500 mg tablet Take 500 mg by mouth every 8 hours as needed. No current facility-administered medications on file prior to visit. Social History Social History Tobacco Use Smoking status: Former Current packs/day: 0.00 Average packs/day: 0.5 packs/day for 10.0 years (5.0 ttl pk-yrs) Types: Cigarettes Start date: 1973 Quit date: 1984 Years since quittin.7 Smokeless tobacco: Never Vaping Use Vaping status: Never Used Substance Use Topics Alcohol use: Not Currently Drug use: Never Review of Symptoms REVIEW OF SYSTEMS GENERAL: No weight loss, malaise or fevers RESPIRATORY: Negative for cough, hemoptysis, wheezing, COPD, dyspnea or shortness of breath CARDIOVASCULAR: Negative for chest pain, leg swelling, hypertension, CHF or palpitations GI: No nausea, vomiting, or diarrhea SKIN: Negative for lesions, rash, and itching PSYCH: Denies change in mood. EXAM: BP 128/70 Pulse 93 Resp 20 Ht 161.8 cm (5' 3.7) Wt 90.4 kg (199 lb 3.2 oz) SpO2 98% BMI 34.51 kg/m General Appearance: Well appearing, alert, in no acute distress, well-hydrated, well nourished.. Skin: Skin color, texture, turgor normal, no suspicious rashes or lesions. Lungs: Lungs clear to auscultation. No wheezing, rhonchi, rales.. Heart: RRR without murmur, gallop, or rubs. No ectopy. Abdomen: Normal abdominal exam, Abdomen soft, non-tender. Bowel sounds normal. No masses, organomegaly. Extremities: No deformities, edema, skin discoloration, clubbing or cyanosis. Good capillary refill. . Health Maintenance List Depression Screening Never done Anxiety Screening Never done Shingrix Vaccine(1 of 2) Never done RSV Vaccine(1 - 1-dose 60+ series) Never done Advance Directive Discussion Never done Covid-19 Vaccine(2022- season) due on 02/28/2024 Influenza Vaccine(1) due on 02/28/2024 Diabetes Screening due on 03/01/2027 DTaP,Tdap,Td Vaccine(2 - Td or Tdap) due on 08/05/2031 Hepatitis C Screening Completed Pneumococcal Vaccine: 65+ Completed HPV Vaccine Aged Out Data reviewed Latest Ref Rng 03/01/2024 WBC 3.70 - 11.00 k/uL 2.84 (L) RBC 4.20 - 6.00 m/uL 3.90 (L) Hemoglobin 13.0 - 17.0 g/dL 10.1 (L) Hematocrit 39.0 - 51.0 % 32.4 (L) MCV 80.0 - 100.0 fL 83.1 MCH 26.0 - 34.0 pg 25.9 (L) MCHC 30.5 - 36.0 g/dL 31.2 RDW-CV 11.5 - 15.0 % 23.1 (H) Platelet Count 150 - 400 k/uL 112 (L) MPV 9.0 - 12.7 fL 8.6 (L) Neut% % 74.6 Abs Neut (ANC) 1.45 - 7.50 k/uL 2.12 Lymph% % 15.1 Abs Lymph 1.00 - 4.00 k/uL 0.43 (L) Medina% % 7.4 Abs Medina <0.87 k/uL 0.21 Eosin% % 2.5 Abs Eosin <0.46 k/uL 0.07 Baso% % 0.0 Abs Baso <0.11 k/uL <0.03 Immature Gran % % 0.4 IMMATURE GRANS (ABS) <0.10 k/uL <0.03 NRBC /100 WBC 0.0 Absolute nRBC <0.01 k/uL <0.01 DTYPE Auto Protein, Total 6.3 - 8.0 g/dL 6.5 Albumin 3.9 - 4.9 g/dL 3.6 (L) Calcium 8.5 - 10.2 mg/dL 9.2 Bilirubin, Total 0.2 - 1.3 mg/dL 0.6 Alkaline Phosphatase 38 - 113 U/L 98 AST 14 - 40 U/L 14 ALT 10 - 54 U/L 9 (L) Glucose 74 - 99 mg/dL 316 (H) BUN 9 - 24 mg/dL 14 Creatinine 0.73 - 1.22 mg/dL 0.82 Sodium 136 - 144 mmol/L 137 Potassium 3.7 - 5.1 mmol/L 3.7 Chloride 98 - 107 mmol/L 99 CO2 22 - 30 mmol/L 24 Anion Gap 8 - 15 mmol/L 14 eGFR >=60 mL/min/1.73m 91 Magnesium 1.7 - 2.3 mg/dL 1.5 (L) CEA <=2.9 ng/mL 37.5 (H) Legend: (L) Low (H) High ASSESSMENT/PLAN: 1. Encounter for medical examination to establish care - ICD9: V70.9, ICD10: Z00.00 (primary diagnosis) - Counseled on healthy diet and regular exercise - Patient counseled on and acknowledged vaccine benefits/risks/side effects; VIS provided: Influenza 2. 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) - ICD9: 153.9, 197.0, ICD10: C18.9, C78.00 Managed by oncology and is on chemotherapy for palliation. Discussed referral to palliative care which he is agreeable to. Will discuss code status with , but would like to be DNR and will bring completed form back along with his living will and POA. Will f/u oncology recommendations. - CONSULT TO PALLIATIVE CARE 3. 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) - ICD9: 153.9, 197.7, ICD10: C18.9, C78.7 See above. - CONSULT TO PALLIATIVE CARE 4. Controlled type 2 diabetes mellitus without complication, with long-term current use of insulin (HCC) - ICD9: 250.00, V58.67, ICD10: E11.9, Z79.4 - Controlled - Continue current medications - Recheck A1c at the end of the month. If normal, will see back in 4 months or PRN. - Statin prescribed - rosuvastatin - Blood glucose monitoring on a once daily schedule - Counseled on healthy diet and regular exercise - Discussed need for and benefit of weight loss. BMI 34.51 kg/(m^2) - Discussed diabetic education issues of diabetes complications and monitoring required, hypoglycemic/hyperglycemic symptoms, and medication-specific side effects and monitoring - Follow up in 4 months, sooner should any other issues arise. - CONSULT TO OPHTHALMOLOGY - HEMOGLOBIN A1C 5. Iron deficiency anemia due to chronic blood loss - ICD9: 280.0, ICD10: D50.0 Improved with IV iron. Heme/onc monitoring his levels. 6. BRYCE on CPAP - ICD9: 327.23, ICD10: G47.33 Improved with nightly CPAP. Continue current settings and recommendations from specialist. 7. Essential hypertension - ICD9: 401.9, ICD10: I10 - Controlled - Continue current medications - Recommend home blood pressure monitoring, to bring results to next visit - Encouraged sodium restriction, DASH or Mediterranean diet - Recommend regular aerobic exercise 8. Encounter for immunization - ICD9: V03.89, ICD10: Z23 - INFLUENZA VACCINE, PRSV FREE, AGE 65+ YR, HIGH DOSE, TRIVALENT (FLUZONE HIGH-DOSE) I spent a total of 45 minutes on the date of the service which included preparing to see the patient, [id number] patient care, completing clinical documentation, obtaining and/or reviewing separately obtained history, performing a medically appropriate examination, counseling and educating the pat ient/family/caregiver, communicating with other HCPs (not separately reported), and independently interpreting results (not separately reported). Dayami Puri MD documented in this encounterAdena [facility] System09-03-2024 NoteRiverview Health Institute09-03-2024 History of Present illness Narrative* Rhonda Owens - 03/01/2024 9:27 AM EDT Oncologic problem(s): 1) Metastatic adenocarcinoma of the cecum. HPI: The patient is a 78-year-old male with a past medical history as outlined below. Had a colonoscopy in 2018 during which evidently showed one polyp. Had about 2 year history right abdominal pain. Insomnia. Had work up [facility] 02/2022. Admitted to [facility] in September with hemoglobin of 5.5 g/dL and black tarry stools. Got 3 units RBCs and IV iron. Started C1D1 FOLFOX Meli on 01/06/2024 Tolerated cycle #1 very well. Following cycle #2 which was administered on 01/19, he had onset of nausea and vomiting 01/26. 2 episodes. Following that he had diarrhea. Symptoms abated somewhat but worsened and he went to the ER last Thursday. Had a CT of the abdomen pelvis which redemonstrated metastatic disease to liver and lung.There were findings of right prior hemicolectomy with some inflammatory changes in the distal terminal ileum at the site of anastomosis. He was given hydration and discharged home. Treatment was heldfor symptoms. CTA 10/20/2023: 1. No acute pulmonary emboli. 2. There is a mass in the cecum measuring approximately 6.7 cm in greatest dimension consistent with colon cancer. There are a few mildly enlarged mesenteric lymph nodes in the right lower quadrant likely representing local metastatic rolando disease. 3. Multiple ill-defined low-density metastatic lesions in the liver. 4. Numerous metastatic nodules and masses throughout both lungs. A few of these lesions abut the pleural surface but do not clearly invade into the chest wall. 5. Hazy ground-glass density throughout the lungs likely related to pulmonary edema. No pleural effusion. 6. There are a few small to borderline enlarged mediastinal and hilar lymph nodes that are nonspecific. Colonoscopy 10/20/2023: A frond-like/villous non-obstructing large mass was found in the cecum. No bleeding was present. Biopsies were taken with a cold forceps for histology. Multiple small and large-mouthed diverticula were found in the sigmoid colon and descending colon. External hemorrhoids were found. The hemorrhoids were small. EGD was unremarkable. Underwent robotic right hemicolectomy, small bowel resection, liver biopsy and port placement on 10/21/2023. COLON: ADENOCARCINOMA Procedure: Right hemicolectomy Macroscopic evaluation of mesorectum (for rectal cancer): Not applicable Tumor site: Cecum Histologic type: Adenocarcinoma Histologic grade: G2: Moderately differentiated Tumor size: 10 cm Multiple primary sites: Not applicable (no additional primary sites present) Tumor extent: Directly invades or adheres to adjacent structure(s): Small bowel Submucosal Invasion (for pT1 tumors only) Not applicable (not a pT1 tumor) Macroscopic tumor perforation: Not identified Lymphatic and/or vascular invasion: Not identified Perineural invasion: Not identified Tumor budding score: High (10 or more) Treatment effect: No known presurgical therapy Margins: Margin status for invasive carcinoma: All margins negative for invasive carcinoma Margin status for non-invasive tumor: All margins negative for high-grade dysplasia / intramucosal carcinoma and low-grade dysplasia Regional lymph nodes: Regional lymph node status: Tumor present in regional lymph node(s) Number of lymph nodes with tumor: 2 Number of lymph nodes examined: 31 Tumor deposits: Present (count = 1) Distant site(s) involved: Liver AJCC 8th edition pathologic stage: Modified Classification: Not applicable pT4b pN1b pM1a MMR Studies (performed on current case) MLH1: Intact protein expression. MSH2: Intact protein expression. MSH6: Intact protein expression. PMS2: Intact protein expression. A. Liver, biopsy: Adenocarcinoma, morphologically consistent with metastatic colonic primary. B. Colon, right hemicolectomy: Invasive moderately differentiated adenocarcinoma. See synoptic report. PET 11/25/2023--demonstrated postsurgical changes in the abdomen. There are hypermetabolic bilaterallung masses and hypermetabolic right hilar adenopathy suspicious for metastatic disease. The largest of the bilateral lung masses measured up to 4.2 x 5.5 cm on the right. Multiple hypermetabolic liver masses measuring up to 4.1 were observed. Spleen size was noted to be borderline. No bone metastases observed. Per initial OV: Feeling much better. No pain. Bowels moving regularly. Mostly formed stools. Occasionally loose. No other GI symptoms. No longer short of breath. Past Medical History: Diabetes mellitus (HCC) Hyperlipidemia Hypertension Sleep apnea has a CPAP Past Surgical History: Procedure Laterality Date ANKLE ARTHROSCOPY W/ OPEN REPAIR Left 1967 APPENDECTOMY 1961 CARDIAC CATHETERIZATION N/A 02/10/2022 Procedure: Left Heart Cath Possbile PTCA/Stent; Surgeon: Baljinder Banegas MD; Location: [facility]; Service: Cardiovascular CARDIAC CATHETERIZATION N/A 02/10/2022 Procedure: Coronary Angiogram; Surgeon: Baljinder Banegas MD; Location: [facility]; Service: Cardiovascular CARDIAC CATHETERIZATION N/A 02/10/2022 Procedure: Instant Wave Free Ratio; Surgeon: Baljinder Banegas MD; Location: [facility]; Service: Cardiovascular CARDIAC CATHETERIZATION N/A 02/10/2022 Procedure: Fractional Flow Ruffin; Surgeon: Baljinder Banegas MD; Location: [facility]; Service: Cardiovascular COLONOSCOPY N/A 10/20/2023 Procedure: COLONOSCOPY with biopsy; Surgeon: Joe Rojas MD; Location: [facility]; Service: Gastroenterology CT COLONOSCOPY 03/01/[address] COLONOSCOPY 07/16/2018 CT COLONOSCOPY EGD N/A 10/20/2023 Procedure: ESOPHAGOGASTRODUODENOSCOPY; Surgeon: Joe Rojas MD; Location: Endo; Service: Gastroenterology INSERTION SUBCUTANEOUS PORT N/A 10/21/2023 Procedure: INSERTION SUBCUTANEOUS PORT; Surgeon: Austen Hall MD; Location: Main OR; Service: [employer] KNEE ARTHROPLASTY Right 1999 MT LAPS COLECTOMY PRTL W/RMVL TERMINAL ILEUM Right 10/21/2023 Procedure: COLECTOMY RIGHT ROBOTIC XI AND SMALL BOWEL RESECTION WITH LYMPH NODE DISSECTION AND LIVER BIOPSY; Surgeon: Austen Hall MD; Location: Main OR; Service: [employer] Social History Marital status: Tobacco Use Smoking status: Smokeless tobacco: Never Vaping Use Vaping Use: Never used Substance and Sexual Activity Alcohol use: Never Drug use: Never Sexual activity: Not Currently Family History Problem Relation Age of Onset Heart attack Mother Sister had breast cancer and at age 53 Current therapy: 1) FOLFOX with meli. Started C1D1 01/06/24 Presents for ongoing oncologic management. Interim history: Today he presents with his son for follow up and evaluation prior to C4. He states that he is feeling well overall. Denies recent fevers, chills or NS. Diarrhea has resolved. Had one day of looser stools but believed to be diet related. Not taking any imodium, treats diarrhea with crackers and [place] cheese. Otherwise no new issues. Denies SOB, CP, palpitations. No neuropathy. No SARAH, dizziness. Denies N/V. No rash or skin changes.No new aches or pains. No bleeding or bruising. Denies neuropathy. Appetite and energy level are good. Discussed Ok to restart PO mag. CMP pending ROS: Constitutional: No fever. No drenching night sweats. Normal appetite. All systems reviewed on 03/01/2024 with pertinent positives and negatives as outlined in the intervalhistory. PHYSICAL EXAM: Vitals: Blood pressure 125/74, pulse 89, temperature 36.7 C (98 F), temperature source Temporal, weight 90 kg (198 lb 8 oz), SpO2 96%. Fatigue-appearing and in no acute distress. EYES: Sclerae are anicteric bilaterally. ENT: Oral mucosa is dry. LYMPHATIC: There is no palpable cervical, supraclavicular, axillary adenopathy. RESPIRATORY: Inspiratory breath sounds are of normal intensity in all farfan. No rales, wheezes or rhonchi. CARDIOVASCULAR: Rhythm is regular. ABDOMEN: The abdomen is nondistended. No splenomegaly or hepatomegaly. No tenderness. No hyperactive bowel sounds. SKIN: No jaundice. I have performed the physical exam today (03/01/2024) and have edited the note to correlate with current findings. LABS: Latest Reference Range & Units 03/01/24 09:05 WBC 3.70 - 11.00 k/uL 2.84 (L) RBC 4.20 - 6.00 m/uL 3.90 (L) Hemoglobin 13.0 - 17.0 g/dL 10.1 (L) Hematocrit 39.0 - 51.0 % 32.4 (L) Platelet Count 150 - 400 k/uL 112 (L) MCV 80.0 - 100.0 fL 83.1 MCH 26.0 - 34.0 pg 25.9 (L) MCHC 30.5 - 36.0 g/dL 31.2 MPV 9.0 - 12.7 fL 8.6 (L) RDW-CV 11.5 - 15.0 % 23.1 (H) DTYPE Auto Neut% % 74.6 Abs Neut (ANC) 1.45 - 7.50 k/uL 2.12 Lymph% % 15.1 Abs Lymph 1.00 - 4.00 k/uL 0.43 (L) Medina% % 7.4 Abs Medina <0.87 k/uL 0.21 Eosin% % 2.5 Abs Eosin <0.46 k/uL 0.07 Baso% % 0.0 Abs Baso <0.11 k/uL <0.03 Immature Gran % % 0.4 IMMATURE GRANS (ABS) <0.10 k/uL <0.03 NRBC /100 WBC 0.0 Absolute nRBC <0.01 k/uL <0.01 (L): Data is abnormally low (H): Data is abnormally high CMP pending ASSESSMENT/PLAN: (C18.0) Cancer of cecum (HCC) (primary encounter diagnosis) (C18.9, C78.7) 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) (C18.9, C78.00) 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) Assessment: -pT4b pN1b 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 -pMRR. -KRAS mutation. -PS is 0. -Comorbid conditions: DM2 (no neuropathy), hypertension, hyperlipidemia and BRYCE. -Goals of care are palliation and prolongation of overall survival. -Tolerated C1 FOLFOX with bevacizumab very well. Following C2 had significant diarrhea, treatment held for symptoms however pt feels that this may have been related to protein drink. Diarrhea resolved once he discontinued use -Blood pressure controlled. -Received parenteral iron. Nice improvement in hemoglobin. - CBC stable Plan: -OK for C4D1 pending remaining labs -Check iron studies, B12 not drawn today. -CT following 4 cycles, ordered today RTC as scheduled for treatment Rhonda Owens APRN.OPERATIONS PROGRAM MANAGER I spent a total of 30 minutes on the date of the service which included preparing to see the patient, [id number] patient care, completing clinical documentation, and performing a medically appropriate examination. Portions of this note including HPI, ROS, impression/plan may have been copied forward as to provide important historical information essential in contributing to medical decision making. Documentation has been reviewed and edited as necessary to support clinical decision making for today's visit and to reflect my own independent evaluation of this patient. documented in this encounterAdena Health System08-20-2024 NoteRiverview [facility] Institute08-20-2024 History of Present illness Narrative* Rhonda Owens - 02/16/2024 9:42 AM EDT Oncologic problem(s): 1) Metastatic adenocarcinoma of the cecum. HPI: The patient is a 78-year-old male with a past medical history as outlined below. Had a colonoscopy in 2018 during which evidently showed one polyp. Had about 2 year history right abdominal pain. Insomnia. Had work up [facility] 02/2022. Admitted to [facility] in September with hemoglobin of 5.5 g/dL and black tarry stools. Got 3 units RBCs and IV iron. Started C1D1 FOLFOX Meli on 01/06/2024 Tolerated cycle #1 very well. Following cycle #2 which was administered on 01/19, he had onset of nausea and vomiting 01/26. 2 episodes. Following that he had diarrhea. Symptoms abated somewhat but worsened and he went to the ER last Thursday. Had a CT of the abdomen pelvis which redemonstrated metastatic disease to liver and lung.There were findings of right prior hemicolectomy with some inflammatory changes in the distal terminal ileum at the site of anastomosis. He was given hydration and discharged home. Treatment was heldfor symptoms. CTA 10/20/2023: 1. No acute pulmonary emboli. 2. There is a mass in the cecum measuring approximately 6.7 cm in greatest dimension consistent with colon cancer. There are a few mildly enlarged mesenteric lymph nodes in the right lower quadrant likely representing local metastatic rolando disease. 3. Multiple ill-defined low-density metastatic lesions in the liver. 4. Numerous metastatic nodules and masses throughout both lungs. A few of these lesions abut the pleural surface but do not clearly invade into the chest wall. 5. Hazy ground-glass density throughout the lungs likely related to pulmonary edema. No pleural effusion. 6. There are a few small to borderline enlarged mediastinal and hilar lymph nodes that are nonspecific. Colonoscopy 10/20/2023: A frond-like/villous non-obstructing large mass was found in the cecum. No bleeding was present. Biopsies were taken with a cold forceps for histology. Multiple small and large-mouthed diverticula were found in the sigmoid colon and descending colon. External hemorrhoids were found. The hemorrhoids were small. EGD was unremarkable. Underwent robotic right hemicolectomy, small bowel resection, liver biopsy and port placement on 10/21/2023. COLON: ADENOCARCINOMA Procedure: Right hemicolectomy Macroscopic evaluation of mesorectum (for rectal cancer): Not applicable Tumor site: Cecum Histologic type: Adenocarcinoma Histologic grade: G2: Moderately differentiated Tumor size: 10 cm Multiple primary sites: Not applicable (no additional primary sites present) Tumor extent: Directly invades or adheres to adjacent structure(s): Small bowel Submucosal Invasion (for pT1 tumors only) Not applicable (not a pT1 tumor) Macroscopic tumor perforation: Not identified Lymphatic and/or vascular invasion: Not identified Perineural invasion: Not identified Tumor budding score: High (10 or more) Treatment effect: No known presurgical therapy Margins: Margin status for invasive carcinoma: All margins negative for invasive carcinoma Margin status for non-invasive tumor: All margins negative for high-grade dysplasia / intramucosal carcinoma and low-grade dysplasia Regional lymph nodes: Regional lymph node status: Tumor present in regional lymph node(s) Number of lymph nodes with tumor: 2 Number of lymph nodes examined: 31 Tumor deposits: Present (count = 1) Distant site(s) involved: Liver AJCC 8th edition pathologic stage: Modified Classification: Not applicable pT4b pN1b pM1a MMR Studies (performed on current case) MLH1: Intact protein expression. MSH2: Intact protein expression. MSH6: Intact protein expression. PMS2: Intact protein expression. A. Liver, biopsy: Adenocarcinoma, morphologically consistent with metastatic colonic primary. B. Colon, right hemicolectomy: Invasive moderately differentiated adenocarcinoma. See synoptic report. PET 11/25/2023--demonstrated postsurgical changes in the abdomen. There are hypermetabolic bilaterallung masses and hypermetabolic right hilar adenopathy suspicious for metastatic disease. The largest of the bilateral lung masses measured up to 4.2 x 5.5 cm on the right. Multiple hypermetabolic liver masses measuring up to 4.1 were observed. Spleen size was noted to be borderline. No bone metastases observed. Per initial OV: Feeling much better. No pain. Bowels moving regularly. Mostly formed stools. Occasionally loose. No other GI symptoms. No longer short of breath. Past Medical History: Diabetes mellitus (HCC) Hyperlipidemia Hypertension Sleep apnea has a CPAP Past Surgical History: Procedure Laterality Date ANKLE ARTHROSCOPY W/ OPEN REPAIR Left 1967 APPENDECTOMY 1961 CARDIAC CATHETERIZATION N/A 02/10/2022 Procedure: Left Heart Cath Possbile PTCA/Stent; Surgeon: Baljinder Banegas MD; Location: [facility]; Service: Cardiovascular CARDIAC CATHETERIZATION N/A 02/10/2022 Procedure: Coronary Angiogram; Surgeon: Baljinder Banegas MD; Location: [facility]; Service: Cardiovascular CARDIAC CATHETERIZATION N/A 02/10/2022 Procedure: Instant Wave Free Ratio; Surgeon: Baljinder Banegas MD; Location: [facility]; Service: Cardiovascular CARDIAC CATHETERIZATION N/A 02/10/2022 Procedure: Fractional Flow Ruffin; Surgeon: Baljinder Banegas MD; Location: [facility]; Service: Cardiovascular COLONOSCOPY N/A 10/20/2023 Procedure: COLONOSCOPY with biopsy; Surgeon: Joe Rojas MD; Location: [facility]; Service: Gastroenterology CT COLONOSCOPY 03/01/[address] COLONOSCOPY 07/16/2018 CT COLONOSCOPY EGD N/A 10/20/2023 Procedure: ESOPHAGOGASTRODUODENOSCOPY; Surgeon: Joe Rojas MD; Location: Endo; Service: Gastroenterology INSERTION SUBCUTANEOUS PORT N/A 10/21/2023 Procedure: INSERTION SUBCUTANEOUS PORT; Surgeon: Austen Hall MD; Location: Main [facility]; Service: [employer] KNEE ARTHROPLASTY Right 1999 MT LAPS COLECTOMY PRTL W/RMVL TERMINAL ILEUM Right 10/21/2023 Procedure: COLECTOMY RIGHT ROBOTIC XI AND SMALL BOWEL RESECTION WITH LYMPH NODE DISSECTION AND LIVER BIOPSY; Surgeon: Austen Hall MD; Location: [facility] OR; Service: [employer] Social History Marital status: Tobacco Use Smoking status: Smokeless tobacco: Never Vaping Use Vaping Use: Never used Substance and Sexual Activity Alcohol use: Never Drug use: Never Sexual activity: Not Currently Family History Problem Relation Age of Onset Heart attack Mother Sister had breast cancer and at age 53 Current therapy: 1) FOLFOX with meli. Started C1D1 01/06/24 Presents for ongoing oncologic management. Interim history: Today he presents with his spouse for follow up and evaluation prior to C3. He states that he is feeling well overall. Denies recent fevers, chills or NS. Diarrhea has resolved. He states that he believes symptoms related to drinking [employer] protein shakes. Diarrhea has entirely resolved since he discontinued these. Not taking any imodium, treats diarrhea with crackers and [place] cheese. Denies SOB, CP, palpitations. No neuropathy. No SARAH, dizziness. Denies N/V. No rash or skin changes.No new aches or pains. No bleeding or bruising. ROS: Constitutional: No fever. No drenching night sweats. Normal appetite. All systems reviewed on 02/16/2024 with pertinent positives and negatives as outlined in the interval history. PHYSICAL EXAM: Vitals: Blood pressure 120/74, pulse 98, temperature 36.5 C (97.7 F), temperature source Temporal, weight 91.2 kg (201 lb), SpO2 91%. Fatigue-appearing and in no acute distress. EYES: Sclerae are anicteric bilaterally. ENT: Oral mucosa is dry. LYMPHATIC: There is no palpable cervical, supraclavicular, axillary adenopathy. RESPIRATORY: Inspiratory breath sounds are of normal intensity in all farfan. No rales, wheezes or rhonchi. CARDIOVASCULAR: Rhythm is regular. ABDOMEN: The abdomen is nondistended. No splenomegaly or hepatomegaly. No tenderness. No hyperactive bowel sounds. SKIN: No jaundice. I have performed the physical exam today (02/16/2024) and have edited the note to correlate with current findings. LABS: Latest Reference Range & Units 02/16/24 09:33 WBC 3.70 - 11.00 k/uL 5.60 RBC 4.20 - 6.00 m/uL 4.09 (L) Hemoglobin 13.0 - 17.0 g/dL 10.4 (L) Hematocrit 39.0 - 51.0 % 33.6 (L) Platelet Count 150 - 400 k/uL 252 MCV 80.0 - 100.0 fL 82.2 MCH 26.0 - 34.0 pg 25.4 (L) MCHC 30.5 - 36.0 g/dL 31.0 MPV 9.0 - 12.7 fL 8.3 (L) RDW-CV 11.5 - 15.0 % 21.6 (H) DTYPE Auto Neut% % 75.6 Abs Neut (ANC) 1.45 - 7.50 k/uL 4.23 Lymph% % 11.4 Abs Lymph 1.00 - 4.00 k/uL 0.64 (L) Medina% % 9.6 Abs [place]ina <0.87 k/uL 0.54 Eosin% % 1.8 Abs Eosin <0.46 k/uL 0.10 Baso% % 0.7 Abs Baso <0.11 k/uL 0.04 Immature Gran % % 0.9 IMMATURE GRANS (ABS) <0.10 k/uL 0.05 NRBC /100 WBC 0.0 Absolute nRBC <0.01 k/uL <0.01 (L): Data is abnormally low (H): Data is abnormally high CMP pending ASSESSMENT/PLAN: (C18.0) Cancer of cecum (HCC) (primary encounter diagnosis) (C18.9, C78.7) 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) (C18.9, C78.00) 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) Assessment: -pT4b pN1b 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 -pMRR. -KRAS mutation. -PS is 0. -Comorbid conditions: DM2 (no neuropathy), hypertension, hyperlipidemia and BRYCE. -We discussed goals of care are palliation and prolongation of overall survival. -Tolerated C1 FOLFOX with bevacizumab very well. Following C2 had significant diarrhea, treatment held for symptoms however pt feels that this may have been related to protein drink. Diarrhea resolved once he discontinued use -Blood pressure controlled. -Received parenteral iron. Nice improvement in hemoglobin. Plan: -OK to resume treatment with C3D1 pending remaining labs - per Dr. Bar previous note -Hold bevacizumab at least 1 cycle after restarting. -Check iron studies, B12 -CT following 4 cycles. Rhonda Owens APRN.OPERATIONS PROGRAM MANAGER I spent a total of 30 minutes on the date of the service which included preparing to see the patient, [id number] patient care, completing clinical documentation, and performing a medically appropriate examination. Portions of this note including HPI, ROS, impression/plan may have been copied forward as to provide important historical information essential in contributing to medical decision making. Documentation has been reviewed and edited as necessary to support clinical decision making for today's visit and to reflect my own independent evaluation of this patient. documented in this encounterA[facility]24 Telephone encounter Note * Telephone Encounter - Jocelin Beach RN - 02/05/2024 10:18 AM EDT Diarrhea symptoms: When did you start having loose stools? Last Thursday How many loose stools have you had in the last 24 hours? Has at least 3 BM's daily. Is there any solid component to the stool? It's starting to become more solid, it was pretty watery before In the last 24 hours, have you taken anything for your diarrhea? (Imodium?) yes imodium If yes, what and how often? 3 tablets yesterday Any fever, bloating, nausea, vomiting or cramping? Denies fever, N/V, or cramping. Has chills every once in awhile and has had some bloating occasionally Any blood in the stool? no Are you eating and drinking normally? Just starting yesterday and today he actually ate, I thinkwe are on the right track. He gets up a little slow and stands there for a minute and he's okay.I think he's just weak too If no, what have you eaten and how much have you drunk in the last 24 hours? Not enough 1/2 glassfluids each meal + 14 ounces. Had OJ for breakfast yesterday and today. Also had tea this morning. Are you taking any new medications, especially antibiotics or supplements? Denies antibiotics, stopped slow-mag. Just started probiotics I think that might be helping. Denies dry mouth or cracked lips. Normal urine output. feels patient is doing better today. Denies the need for IVF. informed of results. feels patient is slowly improving, still having at least 3 BM's daily, becoming more formed now. Patient started eating/drinking a little bit more yesterday. He has hadOJ and tea this morning. denied the need for IVF today. Encouraged her to have him continue imodium and discussed instructions for use. Jocelin Beach RN [facility]08-09-[facility] Miscellaneous Notes* Telephone Encounter - Joeclin Beach RN - 02/05/2024 10:18 AM EDT Diarrhea symptoms: When did you start having loose stools? Last Thursday How many loose stools have you had in the last 24 hours? Has at least 3 BM's daily. Is there any solid component to the stool? It's starting to become more solid, it was pretty watery before In the last 24 hours, have you taken anything for your diarrhea? (Imodium?) yes imodium If yes, what and how often? 3 tablets yesterday Any fever, bloating, nausea, vomiting or cramping? Denies fever, N/V, or cramping. Has chills every once in awhile and has had some bloating occasionally Any blood in the stool? no Are you eating and drinking normally? Just starting yesterday and today he actually ate, I thinkwe are on the right track. He gets up a little slow and stands there for a minute and he's okay.I think he's just weak too If no, what have you eaten and how much have you drunk in the last 24 hours? Not enough 1/2 glassfluids each meal + 14 ounces. Had OJ for breakfast yesterday and today. Also had tea this morning. Are you taking any new medications, especially antibiotics or supplements? Denies antibiotics, stopped slow-mag. Just started probiotics I think that might be helping. Denies dry mouth or cracked lips. Normal urine output. feels patient is doing better today. Denies the need for IVF. informed of results. feels patient is slowly improving, still having at least 3 BM's daily, becoming more formed now. Patient started eating/drinking a little bit more yesterday. He has hadOJ and tea this morning. denied the need for IVF today. Encouraged her to have him continue imodium and discussed instructions for use. Jocelin Beach RN * Telephone Encounter - Jocelin Beach RN - 02/05/2024 9:41 AM EDT [place] Care Coordination FOLLOW-UP NOTE Care Coordination Plan: called patient, no answer, left a VM requesting a call back. Jocelin Beach RN February 05, 2024 * Telephone Encounter - Bhavna Pritchett - 02/04/2024 3:17 PM EDT Spouse requesting lab results from 02/01 documented in this encounterAdena [facility]08-09-2024 Telephone encounter Note * Telephone Encounter - Jocelin Beach RN - 02/05/2024 9:41 AM EDT [facility] Care Coordination FOLLOW-UP NOTE Care Coordination Plan: called patient, no answer, left a VM requesting a call back. Jocelin Beach RN February 05, 2024 [facility]08-08-[facility] Telephone encounter Note* Telephone Encounter - Bhavna Pritchett - 02/04/2024 3:17 PM EDT Spouse requesting lab results from 02/01 [facility] Work Phone: 1(811) 550-441108-06-2024 [facility] History of Present illness Narrative* Aarti Bar DO - 02/02/2024 11:44 AM EDT Oncologic problem(s): 1) Metastatic adenocarcinoma of the cecum. HPI: The patient is a 78-year-old male with a past medical history as outlined below. Had a colonoscopy in 2019 during which evidently showed one polyp. Had about 2 year history right abdominal pain. Insomnia. Had work up [facility] 02/2022. Admitted to [facility] in September with hemoglobin of 5.5 g/dL and black tarry stools. Got 3 units RBCs and IV iron. CTA 10/20/2023: 1. No acute pulmonary emboli. 2. There is a mass in the cecum measuring approximately 6.7 cm in greatest dimension consistent with colon cancer. There are a few mildly enlarged mesenteric lymph nodes in the right lower quadrant likely representing local metastatic rolando disease. 3. Multiple ill-defined low-density metastatic lesions in the liver. 4. Numerous metastatic nodules and masses throughout both lungs. A few of these lesions abut the pleural surface but do not clearly invade into the chest wall. 5. Hazy ground-glass density throughout the lungs likely related to pulmonary edema. No pleural effusion. 6. There are a few small to borderline enlarged mediastinal and hilar lymph nodes that are nonspecific. Colonoscopy 10/20/2023: A frond-like/villous non-obstructing large mass was found in the cecum. No bleeding was present. Biopsies were taken with a cold forceps for histology. Multiple small and large-mouthed diverticula were found in the sigmoid colon and descending colon. External hemorrhoids were found. The hemorrhoids were small. EGD was unremarkable. Underwent robotic right hemicolectomy, small bowel resection, liver biopsy and port placement on 10/21/2023. COLON: ADENOCARCINOMA Procedure: Right hemicolectomy Macroscopic evaluation of mesorectum (for rectal cancer): Not applicable Tumor site: Cecum Histologic type: Adenocarcinoma Histologic grade: G2: Moderately differentiated Tumor size: 10 cm Multiple primary sites: Not applicable (no additional primary sites present) Tumor extent: Directly invades or adheres to adjacent structure(s): Small bowel Submucosal Invasion (for pT1 tumors only) Not applicable (not a pT1 tumor) Macroscopic tumor perforation: Not identified Lymphatic and/or vascular invasion: Not identified Perineural invasion: Not identified Tumor budding score: High (10 or more) Treatment effect: No known presurgical therapy Margins: Margin status for invasive carcinoma: All margins negative for invasive carcinoma Margin status for non-invasive tumor: All margins negative for high-grade dysplasia / intramucosal carcinoma and low-grade dysplasia Regional lymph nodes: Regional lymph node status: Tumor present in regional lymph node(s) Number of lymph nodes with tumor: 2 Number of lymph nodes examined: 31 Tumor deposits: Present (count = 1) Distant site(s) involved: Liver AJCC 8th edition pathologic stage: Modified Classification: Not applicable pT4b pN1b pM1a MMR Studies (performed on current case) MLH1: Intact protein expression. MSH2: Intact protein expression. MSH6: Intact protein expression. PMS2: Intact protein expression. A. Liver, biopsy: Adenocarcinoma, morphologically consistent with metastatic colonic primary. B. Colon, right hemicolectomy: Invasive moderately differentiated adenocarcinoma. See synoptic report. PET 11/25/2023--demonstrated postsurgical changes in the abdomen. There are hypermetabolic bilaterallung masses and hypermetabolic right hilar adenopathy suspicious for metastatic disease. The largest of the bilateral lung masses measured up to 4.2 x 5.5 cm on the right. Multiple hypermetabolic liver masses measuring up to 4.1 were observed. Spleen size was noted to be borderline. No bone metastases observed. Per initial OV: Feeling much better. No pain. Bowels moving regularly. Mostly formed stools. Occasionally loose. No other GI symptoms. No longer short of breath. Past Medical History: Diabetes mellitus (HCC) Hyperlipidemia Hypertension Sleep apnea has a CPAP Past Surgical History: Procedure Laterality Date ANKLE ARTHROSCOPY W/ OPEN REPAIR Left 1967 APPENDECTOMY 1961 CARDIAC CATHETERIZATION N/A 02/10/2022 Procedure: Left Heart Cath Possbile PTCA/Stent; Surgeon: Baljinder Banegas MD; Location: [facility]; Service: Cardiovascular CARDIAC CATHETERIZATION N/A 02/10/2022 Procedure: Coronary Angiogram; Surgeon: Baljinder Banegas MD; [facility]; Service: Cardiovascular CARDIAC CATHETERIZATION N/A 02/10/2022 Procedure: Instant Wave Free Ratio; Surgeon: Baljinder Banegas MD; [facility]; Service: Cardiovascular CARDIAC CATHETERIZATION N/A 02/10/2022 Procedure: Fractional Flow Ruffin; Surgeon: Baljinder Banegas MD; Location: [facility]; Service: Cardiovascular COLONOSCOPY N/A 10/20/2023 Procedure: COLONOSCOPY with biopsy; Surgeon: Joe Rojas MD; Location: Endo; Service: Gastroenterology CT COLONOSCOPY 03/01/[address] COLONOSCOPY 07/16/2018 CT COLONOSCOPY EGD N/A 10/20/2023 Procedure: ESOPHAGOGASTRODUODENOSCOPY; Surgeon: Joe Rojas MD; Location: Endo; Service: Gastroenterology INSERTION SUBCUTANEOUS PORT N/A 10/21/2023 Procedure: INSERTION SUBCUTANEOUS PORT; Surgeon: Austen Hall MD; Location: [facility]; Service: [employer] KNEE ARTHROPLASTY Right 1999 MT LAPS COLECTOMY PRTL W/RMVL TERMINAL ILEUM Right 10/21/2023 Procedure: COLECTOMY RIGHT ROBOTIC XI AND SMALL BOWEL RESECTION WITH LYMPH NODE DISSECTION AND LIVER BIOPSY; Surgeon: Austen Hall MD; Location: [facility]; Service: [employer] Social History Marital status: Tobacco Use Smoking status: Smokeless tobacco: Never Vaping Use Vaping Use: Never used Substance and Sexual Activity Alcohol use: Never Drug use: Never Sexual activity: Not Currently Family History Problem Relation Age of Onset Heart attack Mother Sister had breast cancer and at age 53 Current therapy: 1) FOLFOX with meli. Presents for ongoing oncologic management. Interim history: Tolerated cycle #1 very well. Following cycle #2 which was administered on 01/19, he had onset of nausea and vomiting 01/26. 2 episodes. Following that he had diarrhea. Symptoms abated somewhat but worsened and he went to the ER last Thursday. Had a CT of the abdomen pelvis which redemonstrated metastatic disease to liver and lung.There were findings of right prior hemicolectomy with some inflammatory changes in the distal terminal ileum at the site of anastomosis. He was given hydration and discharged home. Has been eating very little since Thursday. Took Imodium this morning when diarrhea started occurring again. Watery. No blood. Lower back pain flared but has subsided. He discontinued oral magnesium. Restarted omeprazole 40 mg daily. ROS: Constitutional: No fever. No drenching night sweats. Normal appetite. Neuro: No recent SARAH, vertigo, dizziness or imbalance. HEENT: No recent change in voice, vision or hearing. Resp: No cough, wheeze of hemoptysis. No shortness of breath at rest. No FERNANDEZ. CVS: No exertional chest pain, PND or orthopnea. No extremity swelling/edema. No symptoms of claudication. No painful or tender varicose veins. GI: See HPI. : No dysuria or gross hematuria. Endo: No hot flashes. No polyuria or polydipsia. No heat or cold intolerance. Musculoskeletal: No bone, back, joint and muscular pain. Derm: No current rash. No history of jaundice. No diffuse pruritis. Heme: No unusual bleeding and unexplained bruising. Psych: Normal mood. PHYSICAL EXAM: Vitals: Blood pressure 116/76, pulse 99, temperature 36.6 C (97.8 F), temperature source Temporal, weight 89.4 kg (197 lb), SpO2 91%. Fatigue-appearing and in no acute distress. EYES: Sclerae are anicteric bilaterally. ENT: Oral mucosa is dry. LYMPHATIC: There is no palpable cervical, supraclavicular, axillary adenopathy. RESPIRATORY: Inspiratory breath sounds are of normal intensity in all farfan. No rales, wheezes or rhonchi. CARDIOVASCULAR: Rhythm is regular. ABDOMEN: The abdomen is nondistended. No splenomegaly or hepatomegaly. No tenderness. No hyperactive bowel sounds. SKIN: No jaundice. LABS: Latest Ref [facility] 02/02/2024 Protein, Total 6.3 - 8.0 g/dL 6.5 Albumin 3.9 - 4.9 g/dL 3.4 (L) Calcium 8.5 - 10.2 mg/dL 8.8 Bilirubin, Total 0.2 - 1.3 mg/dL 1.0 Alkaline Phosphatase 38 - 113 U/L 88 AST 14 - 40 U/L 8 (L) ALT 10 - 54 U/L 6 (L) Glucose 74 - 99 mg/dL 196 (H) BUN 9 - 24 mg/dL 24 Creatinine 0.73 - 1.22 mg/dL 0.97 Sodium 136 - 144 mmol/L 131 (L) Potassium 3.7 - 5.1 mmol/L 3.7 Chloride 98 - 107 mmol/L 96 (L) CO2 22 - 30 mmol/L 25 Anion Gap 8 - 15 mmol/L 10 eGFR >=60 mL/min/1.73m 81 RBC 4.20 - 6.00 m/uL 4.94 (P) Hemoglobin 13.0 - 17.0 g/dL 12.4 (L) (P) Hematocrit 39.0 - 51.0 % 39.4 (P) MCV 80.0 - 100.0 fL 79.8 (L) (P) MCH 26.0 - 34.0 pg 25.1 (L) (P) MCHC 30.5 - 36.0 g/dL 31.5 (P) RDW-CV 11.5 - 15.0 % 19.5 (H) (P) Platelet Count 150 - 400 k/uL 191 (P) MPV 9.0 - 12.7 fL 8.6 (L) (P) Magnesium 1.7 - 2.3 mg/dL 2.1 ASSESSMENT/PLAN: (C18.0) Cancer of cecum (HCC) (primary encounter diagnosis) (C18.9, C78.7) 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) (C18.9, C78.00) 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) Assessment: -pT4b pN1b 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 -pMRR. -KRAS mutation. -PS is 0. -Comorbid conditions: DM2 (no neuropathy), hypertension, hyperlipidemia and BRYCE. -We discussed goals of care are palliation and prolongation of overall survival. -Tolerating FOLFOX with bevacizumab very well. -Blood pressure controlled. -Received parenteral iron. Nice improvement in hemoglobin. Plan: -Continue omeprazole. -Stop oral Mg. -IV hydration today. -Delay chemotherapy tomorrow at least a week. -Hold bevacizumab at least 1 cycle after restarting. -Imodium [id number]. -Rule out C. difficile and other enteric pathogens. -Encouraged liberal hydration. -Check UA and culture based on UA results at the ED which showed nitrites and leukocyte esterases. Culture was not done there. -CT following 4 cycles. Portions of this documentation were copied and pasted from previous office visit notes in order to provide a cohesive continuity of the history. The note has been reviewed and edited and updated as necessary. I spent a total of 30 minutes on the date of the service which included preparing to see the patient, [id number] patient care, completing clinical documentation, obtaining and/or reviewing separately obtained history, performing a medically appropriate examination, counseling and educating the pat ient/family/caregiver, ordering medications, tests, or procedures, communicating with other HCPs (not separately reported), and communicating results to the patient/family/caregiver. Aarti Bar DO documented in this encounterAdena Health System08-05-2024 Telephone encounter Note * Telephone Encounter - Jocelin Beach RN - 02/01/2024 12:54 PM EDT EMERGENCY ROOM CALL BACK Today's date: February 01, 2024 Patient identified by name and date of . YES Primary Cancer Diagnosis: Metastatic Colon Cancer, Folfox + Avastin C2 01/20/24 Reason for Emergency Room Visit: Dehydration/N/V Time of day presented to Emergency Room morning If Thu-Thursday during business hours: N/A Patient with any new symptom issues: No Psychosocial Risk Factors: None FOLLOW UP Patient reminded of her follow-up appointment with [facility] provider, Dr. Bar on 02/02/24: Yes Next It Quality Analyst outreach with patient scheduled? Yes, reinforced date and time Discussed: stated patient went to [facility] ED this morning d/t weakness/dehydration. Patient is feeling much better now after receiving IVF. Per , she believes the diarrhea has improved as well. Patient has an OV with Dr. Bar tomorrow. Advised stopping magnesium if he is having diarrhea. Wifewas given the billing customer service number because she had a question about a bill she received in the mail. PATIENT EDUCATION/REINFORCEMENT Patient verbalizes understanding of when to seek Medical Attention? YES Patient verbalizes understanding of after hours and weekend phone number? YES Patient verbalizes understanding of next outreach appointment? YES Jocelin Beach RN [facility]08-05-2024 Miscellaneous Notes* Telephone Encounter - Jocelin Beach RN - 02/01/2024 12:54 PM EDT EMERGENCY ROOM CALL BACK Today's date: February 01, 2024 Patient identified by name and date of . YES Primary Cancer Diagnosis: Metastatic Colon Cancer, Folfox + Avastin C2 01/20/24 Reason for Emergency Room Visit: Dehydration/N/V Time of day presented to Emergency Room morning If Thu-Thursday during business hours: N/A Patient with any new symptom issues: No Psychosocial Risk Factors: None FOLLOW UP Patient reminded of her follow-up appointment with [facility] provider, Dr. Bar on 02/02/24: Yes Next It Quality Analyst outreach with patient scheduled? Yes, reinforced date and time Discussed: stated patient went to [facility] ED this morning d/t weakness/dehydration. Patient is feeling much better now after receiving IVF. Per , she believes the diarrhea has improved as well. Patient has an OV with Dr. Bar tomorrow. Advised stopping magnesium if he is having diarrhea. Wifewas given the billing customer service number because she had a question about a bill she received in the mail. PATIENT EDUCATION/REINFORCEMENT Patient verbalizes understanding of when to seek Medical Attention? YES Patient verbalizes understanding of after hours and weekend phone number? YES Patient verbalizes understanding of next outreach appointment? YES Jocelin Beach RN * Telephone Encounter - Jocelin Beach RN - 01/29/2024 1:01 PM EDT Care Coordination Triage Note [facility] Situation: Patient reports Bowel symptoms and Nausea/Vomiting, started 01/26 Background: Metastatic Colon Cancer, Folfox + Avastin C2 01/20/24 Assessment: Diarrhea symptoms: When did you start having loose stools? Yesterday How many loose stools have you had in the last 24 hours? 3 diarrhea episodes Is there any solid component to the stool? Watery and some form In the last 24 hours, have you taken anything for your diarrhea? Imodium AD 2 tablets, today 11 am.Has had a BM since taking imodium, watery some form Any fever, bloating, nausea, vomiting or cramping? Bloating, patient stated he looks and feels bloated. Not passing much gas. Denies cramping. Any blood in the stool? no Are you eating and drinking normally? no If no, what have you eaten and how much have you drunk in the last 24 hours? Not much more than 10-12 ounces Are you taking any new medications, especially antibiotics or supplements? no Any recent hospitalization? no Dizziness with standing- denies Feels weak Urinating- denies decrease in urination Denies fever/chills, cold/resp symptoms. NAUSEA When did the nausea start? Thursday Is it constant or intermittent? Constant Are you taking any anti-nausea medications? Prochlorperazine- started , took every 6 hours. If yes, what and when did you last take it? Noon today Did you get any relief from this medication? He's been drowsy, sleeping, its not enough to make him eat or drink Is there anything that makes the nausea worse? no When was your last bowel movement? An hour ago Was it normal for you? No, diarrhea What have you been able to eat and drink in the past 24 hours? Are you taking any pain medications or any new medications including supplements since the nausea started? no VOMITING Are you also having any vomiting? 1- yesterday, after drinking coffee Heartburn: restarted omeprazole yesterday and the heartburn has resolved. Not eating/drinking, heartburn started Thursday. Patient stated he switched to slow-mag after his last OV. On Thursday he developed heartburn and burning up into his esophagus. Patient had breakfast and then coffee and had an episode of emesis. Patient restarted omeprazole yesterday and the heartburn resolved. Patient has continuous nausea, not relieved by compazine. Patient has also had 3 episodes of watery some form stool in the past 24 hours. Patient stated he has bloating and increased gas, denies abdominal pain, fever, chills, dizziness with standing, decreased urine output, or recent colds/illnesses. Denies sick contacts. Patient advised to switch to Zofran and take every 8 hours. Continue taking imodium. Start sipping on fluids every 15 min, eat crackers/cereal/BRAT diet, and go to local ER if he continues to not be able to eat/drink over the weekend. Patient stated understanding. Recommendations: Per RNCC, patient directed to: Manage at home. Instructions provided. Jocelin Beach RN January 29, 2024 1:01 PM documented in this encounterAden[facility]08-[facility]24 Telephone encounter Note * Telephone Encounter - Jocelin Beach RN - 01/29/2024 3:06 PM EDT Addressed in a separate phone encounter. Jocelin Beach RN [facility]08-02-2024 Miscellaneous Notes* Telephone Encounter - Jocelin Beach RN - 01/29/2024 3:06 PM EDT Addressed in a separate phone encounter. Jocelin Beach RN * Telephone Encounter - Bhavna Pritchett - 01/29/2024 12:58 PM EDT Spouse called stating patient has not been feeling well since Thursday. He had a couple bouts of diarrhea and has vomited. Patient is not eating. Please advise. documented in this encounterAdena [facility] System08-02-2024 Telephone encounter Note * Telephone Encounter - Jocelin Beach RN - 01/29/2024 1:01 PM EDT Care Coordination Triage Note [facility] Situation: Patient reports Bowel symptoms and Nausea/Vomiting, started 01/26 Background: Metastatic Colon Cancer, Folfox + Avastin C2 01/20/24 Assessment: Diarrhea symptoms: When did you start having loose stools? Yesterday How many loose stools have you had in the last 24 hours? 3 diarrhea episodes Is there any solid component to the stool? Watery and some form In the last 24 hours, have you taken anything for your diarrhea? Imodium AD 2 tablets, today 11 am.Has had a BM since taking imodium, watery some form Any fever, bloating, nausea, vomiting or cramping? Bloating, patient stated he looks and feels bloated. Not passing much gas. Denies cramping. Any blood in the stool? no Are you eating and drinking normally? no If no, what have you eaten and how much have you drunk in the last 24 hours? Not much more than 10-12 ounces Are you taking any new medications, especially antibiotics or supplements? no Any recent hospitalization? no Dizziness with standing- denies Feels weak Urinating- denies decrease in urination Denies fever/chills, cold/resp symptoms. NAUSEA When did the nausea start? Thursday Is it constant or intermittent? Constant Are you taking any anti-nausea medications? Prochlorperazine- started , took every 6 hours. If yes, what and when did you last take it? Noon today Did you get any relief from this medication? He's been drowsy, sleeping, its not enough to make him eat or drink Is there anything that makes the nausea worse? no When was your last bowel movement? An hour ago Was it normal for you? No, diarrhea What have you been able to eat and drink in the past 24 hours? Are you taking any pain medications or any new medications including supplements since the nausea started? no VOMITING Are you also having any vomiting? 1- yesterday, after drinking coffee Heartburn: restarted omeprazole yesterday and the heartburn has resolved. Not eating/drinking, heartburn started Thursday. Patient stated he switched to slow-mag after his last OV. On Thursday he developed heartburn and burning up into his esophagus. Patient had breakfast and then coffee and had an episode of emesis. Patient restarted omeprazole yesterday and the heartburn resolved. Patient has continuous nausea, not relieved by compazine. Patient has also had 3 episodes of watery some form stool in the past 24 hours. Patient stated he has bloating and increased gas, denies abdominal pain, fever, chills, dizziness with standing, decreased urine output, or recent colds/illnesses. Denies sick contacts. Patient advised to switch to Zofran and take every 8 hours. Continue taking imodium. Start sipping on fluids every 15 min, eat crackers/cereal/BRAT diet, and go to local ER if he continues to not be able to eat/drink over the weekend. Patient stated understanding. Recommendations: Per RNCC, patient directed to: Manage at home. Instructions provided. Jocelin Beach RN January 29, 2024 1:01 PM [facility]08-02-2024 Telephone encounter Note* Telephone Encounter - Jacksonthiago CohenBhavna - 01/29/2024 12:58 PM EDT Spouse called stating patient has not been feeling well since Thursday. He had a couple bouts of diarrhea and has vomited. Patient is not eating. Please advise. [facility] Work Phone: 1(400) 959-548207-24-2024 [facility] History of Present illness Narrative* Yaima Nieto RN - 01/20/2024 9:53 AM EDT Pt. Verbally denies any change in assessment from office visit on 01/19/[address] Bar. Pt verbalagree's to treatment. documented in this encounterAdena Health System07-23-2024 Telephone encounter Note * Telephone Encounter - Kimberly Diaz - 01/19/2024 4:45 PM EDT Scheduled as directed Kimberly Diaz [facility]07-23-2024 Miscellaneous Notes* Telephone Encounter - Kimberly Diaz - 01/19/2024 4:45 PM EDT Scheduled as directed Kimberly Diaz * Telephone Encounter - Nury Hunter - 01/19/2024 4:31 PM EDT Check out comments:He would like to establish with PCP here if able. As scheduled. documented in this encounterAdena Health System07-23-2024 Telephone encounter Note * Telephone Encounter - Nury Hunter - 01/19/2024 4:31 PM EDT Check out comments:He would like to establish with PCP here if able. As scheduled. [facility]07-23-2024 [facility]07-[facility]24 History of Present illness Narrative* Aarti Bar, - 01/19/2024 4:15 PM EDT Oncologic problem(s): 1) Metastatic HPI: The patient is a 78-year-old male with a past medical history as outlined below. Had a colonoscopy in 2019 during which evidently showed one polyp. Had about 2 year history right abdominal pain. Insomnia. Had work up [facility] 02/2022. Admitted to [facility] in September with hemoglobin of 5.5 g/dL and black tarry stools. Got 3 units RBCs and IV iron. CTA 10/20/2023: 1. No acute pulmonary emboli. 2. There is a mass in the cecum measuring approximately 6.7 cm in greatest dimension consistent with colon cancer. There are a few mildly enlarged mesenteric lymph nodes in the right lower quadrant likely representing local metastatic roladno disease. 3. Multiple ill-defined low-density metastatic lesions in the liver. 4. Numerous metastatic nodules and masses throughout both lungs. A few of these lesions abut the pleural surface but do not clearly invade into the chest wall. 5. Hazy ground-glass density throughout the lungs likely related to pulmonary edema. No pleural effusion. 6. There are a few small to borderline enlarged mediastinal and hilar lymph nodes that are nonspecific. Colonoscopy 10/20/2023: A frond-like/villous non-obstructing large mass was found in the cecum. No bleeding was present. Biopsies were taken with a cold forceps for histology. Multiple small and large-mouthed diverticula were found in the sigmoid colon and descending colon. External hemorrhoids were found. The hemorrhoids were small. EGD was unremarkable. Underwent robotic right hemicolectomy, small bowel resection, liver biopsy and port placement on 10/21/2023. COLON: ADENOCARCINOMA Procedure: Right hemicolectomy Macroscopic evaluation of mesorectum (for rectal cancer): Not applicable Tumor site: Cecum Histologic type: Adenocarcinoma Histologic grade: G2: Moderately differentiated Tumor size: 10 cm Multiple primary sites: Not applicable (no additional primary sites present) Tumor extent: Directly invades or adheres to adjacent structure(s): Small bowel Submucosal Invasion (for pT1 tumors only) Not applicable (not a pT1 tumor) Macroscopic tumor perforation: Not identified Lymphatic and/or vascular invasion: Not identified Perineural invasion: Not identified Tumor budding score: High (10 or more) Treatment effect: No known presurgical therapy Margins: Margin status for invasive carcinoma: All margins negative for invasive carcinoma Margin status for non-invasive tumor: All margins negative for high-grade dysplasia / intramucosal carcinoma and low-grade dysplasia Regional lymph nodes: Regional lymph node status: Tumor present in regional lymph node(s) Number of lymph nodes with tumor: 2 Number of lymph nodes examined: 31 Tumor deposits: Present (count = 1) Distant site(s) involved: Liver AJCC 8th edition pathologic stage: Modified Classification: Not applicable pT4b pN1b pM1a MMR Studies (performed on current case) MLH1: Intact protein expression. MSH2: Intact protein expression. MSH6: Intact protein expression. PMS2: Intact protein expression. A. Liver, biopsy: Adenocarcinoma, morphologically consistent with metastatic colonic primary. B. Colon, right hemicolectomy: Invasive moderately differentiated adenocarcinoma. See synoptic report. PET 11/25/2023--demonstrated postsurgical changes in the abdomen. There are hypermetabolic bilaterallung masses and hypermetabolic right hilar adenopathy suspicious for metastatic disease. The largest of the bilateral lung masses measured up to 4.2 x 5.5 cm on the right. Multiple hypermetabolic liver masses measuring up to 4.1 were observed. Spleen size was noted to be borderline. No bone metastases observed. Per initial OV: Feeling much better. No pain. Bowels moving regularly. Mostly formed stools. Occasionally loose. No other GI symptoms. No longer short of breath. Past Medical History: Diabetes mellitus (HCC) Hyperlipidemia Hypertension Sleep apnea has a CPAP Past Surgical History: Procedure Laterality Date ANKLE ARTHROSCOPY W/ OPEN REPAIR Left 1967 APPENDECTOMY 1961 CARDIAC CATHETERIZATION N/A 02/10/2022 Procedure: Left Heart Cath Possbile PTCA/Stent; Surgeon: Baljinder Banegas MD; Location: [facility]; Service: Cardiovascular CARDIAC CATHETERIZATION N/A 02/10/2022 Procedure: Coronary Angiogram; Surgeon: Baljinder Banegas MD; Location: [facility]; Service: Cardiovascular CARDIAC CATHETERIZATION N/A 02/10/2022 Procedure: Instant Wave Free Ratio; Surgeon: Baljinder Banegas MD; Location: [facility]; Service: Cardiovascular CARDIAC CATHETERIZATION N/A 02/10/2022 Procedure: Fractional Flow Ruffin; Surgeon: Baljinder Banegas MD; Location: [facility]; Service: Cardiovascular COLONOSCOPY N/A 10/20/2023 Procedure: COLONOSCOPY with biopsy; Surgeon: Joe Rojas MD; Location: Endo; Service: Gastroenterology CT COLONOSCOPY 03/01/[address] COLONOSCOPY 07/16/2018 CT COLONOSCOPY EGD N/A 10/20/2023 Procedure: ESOPHAGOGASTRODUODENOSCOPY; Surgeon: Joe Rojas MD; Location: Endo; Service: Gastroenterology INSERTION SUBCUTANEOUS PORT N/A 10/21/2023 Procedure: INSERTION SUBCUTANEOUS PORT; Surgeon: Austen Hall MD; Location: Main OR; Service: [employer] KNEE ARTHROPLASTY Right 1999 MT LAPS COLECTOMY PRTL W/RMVL TERMINAL ILEUM Right 10/21/2023 Procedure: COLECTOMY RIGHT ROBOTIC XI AND SMALL BOWEL RESECTION WITH LYMPH NODE DISSECTION AND LIVER BIOPSY; Surgeon: Austen Hall MD; Location: Main OR; Service: [employer] Social History Marital status: Tobacco Use Smoking status: Smokeless tobacco: Never Vaping Use Vaping Use: Never used Substance and Sexual Activity Alcohol use: Never Drug use: Never Sexual activity: Not Currently Family History Problem Relation Age of Onset Heart attack Mother Sister had breast cancer and at age 53 Current therapy: 1) FOLFOX with meli. Presents for ongoing oncologic management. Interim history: Tolerated well. Got parenteral iron. No nausea. One episode diarrhea. Otherwise bowels working normally. Cold induced neuropathy resolved. ROS: Constitutional: No fever. No drenching night sweats. Normal appetite. Neuro: No recent SARAH, vertigo, dizziness or imbalance. HEENT: No recent change in voice, vision or hearing. Resp: No cough, wheeze of hemoptysis. No shortness of breath at rest. No FERNANDEZ. CVS: No exertional chest pain, PND or orthopnea. No extremity swelling/edema. No symptoms of claudication. No painful or tender varicose veins. GI: See HPI. : No dysuria or gross hematuria. Endo: No hot flashes. No polyuria or polydipsia. No heat or cold intolerance. Musculoskeletal: No bone, back, joint and muscular pain. Derm: No current rash. No history of jaundice. No diffuse pruritis. Heme: No unusual bleeding and unexplained bruising. Psych: Normal mood. PHYSICAL EXAM: Vitals: Blood pressure 134/75, pulse 74, temperature 36.6 C (97.8 F), temperature source Temporal, weight 94.1 kg (207 lb 8 oz), SpO2 95%. Well-appearing and in no acute distress. EYES: Sclerae are anicteric bilaterally. ENT: Oral mucosa is unremarkable. There is no sign of thrush or mucositis. LYMPHATIC: There is no palpable cervical, supraclavicular, axillary adenopathy. RESPIRATORY: Inspiratory breath sounds are of normal intensity in all farfan. No rales, wheezes or rhonchi. CARDIOVASCULAR: Rhythm is regular. ABDOMEN: The abdomen is nondistended. No splenomegaly or hepatomegaly. No tenderness. All incisionsand trocar sites well-healed. SKIN: No jaundice. LABS: Latest Ref [facility] 01/19/2024 WBC 3.70 - 11.00 k/uL 3.66 (L) RBC 4.20 - 6.00 m/uL 4.43 Hemoglobin 13.0 - 17.0 g/dL 11.0 (L) Hematocrit 39.0 - 51.0 % 36.3 (L) MCV 80.0 - 100.0 fL 81.9 MCH 26.0 - 34.0 pg 24.8 (L) MCHC 30.5 - 36.0 g/dL 30.3 (L) RDW-CV 11.5 - 15.0 % 19.0 (H) Platelet Count 150 - 400 k/uL 178 MPV 9.0 - 12.7 fL 8.3 (L) Neut% % 63.7 Abs Neut (ANC) 1.45 - 7.50 k/uL 2.33 Lymph% % 19.9 Abs Lymph 1.00 - 4.00 k/uL 0.73 (L) Medina% % 11.2 Abs Medina <0.87 k/uL 0.41 Eosin% % 4.4 Abs Eosin <0.46 k/uL 0.16 Baso% % 0.5 Abs Baso <0.11 k/uL <0.03 Immature Gran % % 0.3 IMMATURE GRANS (ABS) <0.10 k/uL <0.03 NRBC /100 WBC 0.0 Absolute nRBC <0.01 k/uL <0.01 DTYPE Auto Protein, Total 6.3 - 8.0 g/dL 6.6 Albumin 3.9 - 4.9 g/dL 3.8 (L) Calcium 8.5 - 10.2 mg/dL 8.7 Bilirubin, Total 0.2 - 1.3 mg/dL 0.3 Alkaline Phosphatase 38 - 113 U/L 99 AST 14 - 40 U/L 11 (L) ALT 10 - 54 U/L 7 (L) Glucose 74 - 99 mg/dL 175 (H) BUN 9 - 24 mg/dL 19 Creatinine 0.73 - 1.22 mg/dL 0.83 Sodium 136 - 144 mmol/L 138 Potassium 3.7 - 5.1 mmol/L 3.6 (L) Chloride 98 - 107 mmol/L 100 CO2 22 - 30 mmol/L 29 Anion Gap 8 - 15 mmol/L 9 eGFR >=60 mL/min/1.73m 91 Magnesium 1.7 - 2.3 mg/dL 1.6 (L) ASSESSMENT/PLAN: (C18.0) Cancer of cecum (HCC) (primary encounter diagnosis) (C18.9, C78.7) 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) (C18.9, C78.00) 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) Assessment: -pT4b pN1b 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 -pMRR. -KRAS mutation. -PS is 0. -Comorbid conditions: DM2 (no neuropathy), hypertension, hyperlipidemia and BRYCE. -We discussed goals of care are palliation and prolongation of overall survival. -Tolerating FOLFOX with bevacizumab very well. -Blood pressure controlled. -Received parenteral iron. Nice improvement in hemoglobin. Plan: -Hold omeprazole. -Start Slo-Mag BID. -Okay for cycle #2 of FOLFOX with bevacizumab tomorrow. -Monitor urine for protein every other cycle. -Monitor blood pressure. -CT following 4 cycles. Portions of this documentation were copied and pasted from previous office visit notes in order to provide a cohesive continuity of the history. The note has been reviewed and edited and updated as necessary. I spent a total of 20 minutes on the date of the service which included preparing to see the patient, [id number] patient care, completing clinical documentation, obtaining and/or reviewing separately obtained history, performing a medically appropriate examination, counseling and educating the pat ient/family/caregiver, ordering medications, tests, or procedures, communicating with other HCPs (not separately reported), and communicating results to the patient/family/caregiver. Aarti Bar DO documented in this encounterAdena Health System07-15-2024 Telephone encounter Note * Telephone Encounter - Jocelin Beach RN - 01/11/2024 11:29 AM EDT CYCLE 1/DAY 1 POST TREATMENT CALL Today's date: January 11, 2024 Treatment Regimen: Folfox+ Avastin C1D1 Date: 01/06/24 Called patient to follow-up on symptom management. Spoke with patient SYMPTOM ASSESSMENT Neuro: Headache slight headache Thursday- took 2 tylenol and he's been fine since. CV/Resp: None GI/: Appetite: no changes in appetite, appetite fair. Fluid intake: drinking adequate amounts of water Denies N/V/D Integument: None Activity: Patient reported no changes in energy level, energy level good Pain: No=0 (pain 0 on a scale of 0-10). Fever: No Chills: No Any new referrals needed? No Reinforced CURRENT treatment education based on current and anticipated symptoms. Discussed port/line care and patient verbalizes understanding: Yes Patient instructed to contact office or after hours Hematology/Oncology fellow for: temperature ? 100.4; questions or concerns. Patient verbalized understanding of when to seek medical attention and after hours number protocol. Jocelin Beach RN [facility]07-15-2024 Miscellaneous Notes* Telephone Encounter - Jocelin Beach RN - 01/11/2024 11:29 AM EDT CYCLE 1/DAY 1 POST TREATMENT CALL Today's date: January 11, 2024 Treatment Regimen: Folfox+ Avastin C1D1 Date: 01/06/24 Called patient to follow-up on symptom management. Spoke with patient SYMPTOM ASSESSMENT Neuro: Headache slight headache Thursday- took 2 tylenol and he's been fine since. CV/Resp: None GI/: Appetite: no changes in appetite, appetite fair. Fluid intake: drinking adequate amounts of water Denies N/V/D Integument: None Activity: Patient reported no changes in energy level, energy level good Pain: No=0 (pain 0 on a scale of 0-10). Fever: No Chills: No Any new referrals needed? No Reinforced CURRENT treatment education based on current and anticipated symptoms. Discussed port/line care and patient verbalizes understanding: Yes Patient instructed to contact office or after hours Hematology/Oncology fellow for: temperature ? 100.4; questions or concerns. Patient verbalized understanding of when to seek medical attention and after hours number protocol. Jocelin Beach RN * Telephone Encounter - Jocelin Beach RN - 01/11/2024 11:05 AM EDT CYCLE 1/DAY 1 POST TREATMENT CALL Today's date: January 11, 2024 Treatment Regimen: Folfox+Avastin C1D1 Date: 01/06/24 Called patient to follow-up on symptom management, there was no answer, left a VM requesting a callback from patient. Jocelin Beach RN documented in this encounterAdena Health System07-15-2024 Telephone encounter Note * Telephone Encounter - Jocelin Beach RN - 01/11/2024 11:05 AM EDT CYCLE 1/DAY 1 POST TREATMENT CALL Today's date: January 11, 2024 Treatment Regimen: Folfox+Avastin C1D1 Date: 01/06/24 Called patient to follow-up on symptom management, there was no answer, left a VM requesting a callback from patient. Jocelin Beach RN [facility]07-10-2024 History of Present illness Narrative* Katja Diggs RN - 01/06/2024 1:08 PM EDT Urine dip completed this am did not transfer over copy sent to be scanned in to the system documented in this encounterAdena Health System07-05-2024 Evaluation + Plan note* Assessment & Plan Note - Dayami Roe MD - 01/01/2024 12:51 PM EDT Associated Problem(s): 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 (Multi) Following with oncology at the [facility], to start chemotherapy in the next month. [facility] Work Phone: [phone]) 646-496607-05-2024 Evaluation + Plan note* Assessment & Plan Note - Dayami Roe MD - 01/01/2024 12:51 PM EDTAssociated Problem(s): GERD (gastroesophageal reflux disease) Currently stable. [facility] Work Phone: 1(539) 638-900007-05-2024 Miscellaneous Notes* Assessment & Plan Note - Dayami Roe MD - 01/01/2024 12:51 PM EDTAssociated Problem(s): 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 (Multi) Following with oncology at the [facility], to start chemotherapy in the next month. * Assessment & Plan Note - Dayami Roe MD - 01/01/2024 12:51 PM EDT Associated Problem(s): GERD (gastroesophageal reflux disease) Currently stable. * Assessment & Plan Note - Dayami Roe MD - 01/01/2024 12:50 PM EDT Associated Problem(s): Obesity, morbid (Multi) Encouraged about diet and exercise. * Assessment & Plan Note - Dayami Roe MD - 01/01/2024 12:50 PM EDT Associated Problem(s): DM2 (diabetes mellitus, type 2) (Multi) A1c testing improved, patient lost about 20 pounds since September, is currently undergoing evaluation with oncology for treatment of stage IV colon cancer. Patient will be getting steroids during his chemotherapy session, was given a prescription today for glucose meter, told to check in the morning before breakfast especially during chemotherapy, if sugars over 200 administer 20 units of insulin glargine, was demonstrated how to use insulin pen today in the office, contact the office if any problems. * Assessment & Plan Note - Dayami Roe MD - 01/01/2024 12:50 PM EDT Associated Problem(s): Hypertension, essential, benign Blood pressure under good control renal function stable no change. * Assessment & Plan Note - Dayami Roe MD - 01/01/2024 12:50 PM EDT Associated Problem(s): Hyperlipidemia Stable currently with rosuvastatin. [facility] [place] [facility] [phone]) 811-370407-05-2024 Evaluation + Plan note* Assessment & Plan Note - Dayami Roe MD - 01/01/2024 12:50 PM EDTAssociated Problem(s): Obesity, morbid (Multi) Encouraged about diet and exercise. [facility] Work Phone: [phone]) 371-155907-05-2024 Evaluation + Plan note* Assessment & Plan Note - Dayami Roe MD - 01/01/2024 12:50 PM EDTAssociated Problem(s): DM2 (diabetes mellitus, type 2) (Multi) A1c testing improved, patient lost about 20 pounds since September, is currently undergoing evaluation with oncology for treatment of stage IV colon cancer. Patient will be getting steroids during his chemotherapy session, was given a prescription today for glucose meter, told to check in the morning before breakfast especially during chemotherapy, if sugars over 200 administer 20 units of insulin glargine, was demonstrated how to use insulin pen today in the office, contact the office if any problems. [facility] Work Phone: [phone]) 446-995707-05-2024 Evaluation + Plan note* Assessment & Plan Note - Dayami Roe MD - 01/01/2024 12:50 PM EDTAssociated Problem(s): Hypertension, essential, benign Blood pressure under good control renal function stable no change. [facility] Work Phone: [phone]) 424-717507-05-2024 Evaluation + Plan note* Assessment & Plan Note - Dayami Roe MD - 01/01/2024 12:50 PM EDTAssociated Problem(s): Hyperlipidemia Stable currently with rosuvastatin. [facility] Work Phone: [phone]) [phone] History of Present illness Narrative* Dayami Roe MD - 01/01/2024 8:40 AM EDT Subjective Patient ID: Dipti Sierra is a 78 y.o. male who presents for Follow-up (6 month follow up with labs ). HPI No low blood sugars since last OV, seen opthalmology in the past year, and no numbness or tingling in feet, skin normal. No headache, chest pain, shortness of breath, dizziness, lightheadedness, or edema Taking PPI daily without breakthrough symptoms. Reviewed dietary, caffeine, tobacco, alcohol, and NSAID use. No dyspepsia, dysphagia, reflux, melena, or abdominal pain. 20 pound weight loss since September Last seen oncology in November, had Fe infusion, to start chemotherapy next week No LBS, will be using steroids with chemotherapy Review of Systems Constitutional: Negative for activity change, appetite change, fatigue and unexpected weight change. HENT: Negative for ear pain, nosebleeds, rhinorrhea, sneezing and trouble swallowing. Respiratory: Negative for cough, shortness of breath and wheezing. Cardiovascular: Negative for chest pain, palpitations and leg swelling. Gastrointestinal: Negative for abdominal distention, abdominal pain, constipation, diarrhea, nauseaand vomiting. Genitourinary: Negative for difficulty urinating. Musculoskeletal: Negative for arthralgias. Skin: Negative for rash. Neurological: Negative for dizziness, light-headedness, numbness and headaches. Hematological: Negative for adenopathy. Psychiatric/Behavioral: Negative for behavioral problems. All other systems reviewed and are negative. Objective BP 134/68 (BP Location: Left arm, Patient Position: Sitting) Pulse 81 Ht 1.702 m (5' 7) Wt 95 kg (209 lb 6.4 oz) SpO2 93% BMI 32.80 kg/m Physical Exam Vitals and nursing note reviewed. Constitutional: General: He is not in acute distress. Appearance: Normal appearance. He is not toxic-appearing. HENT: Head: Normocephalic and atraumatic. Right Ear: Tympanic membrane, ear canal and external ear normal. Left Ear: Tympanic membrane, ear canal and external ear normal. Nose: Nose normal. Mouth/Throat: Mouth: Mucous membranes are moist. Pharynx: Oropharynx is clear. Eyes: Extraocular Movements: Extraocular movements intact. Conjunctiva/sclera: Conjunctivae normal. Pupils: Pupils are equal, round, and reactive to light. Cardiovascular: Rate and Rhythm: Normal rate and regular rhythm. Pulses: Normal pulses. Heart sounds: Normal heart sounds. Pulmonary: Effort: Pulmonary effort is normal. Breath sounds: Normal breath sounds. Abdominal: General: Abdomen is flat. Bowel sounds are normal. Palpations: Abdomen is soft. Musculoskeletal: Cervical back: Normal range of motion and neck supple. Skin: General: Skin is warm and dry. Capillary Refill: Capillary refill takes less than 2 seconds. Neurological: General: No focal deficit present. Mental Status: He is alert and oriented to person, place, and time. Mental status is at baseline. Psychiatric: Mood and Affect: Mood normal. Behavior: Behavior normal. 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 Patient will be getting steroids during his chemotherapy session, was given a prescription today for glucose meter, told to check in the morning before breakfast especially during chemotherapy, if sugars over 200 administer 20 units of insulin glargine, was demonstrated how to use insulin pen today in the office, contact the office if any problems. Relevant Medications insulin glargine (Lantus) 100 unit/mL (3 mL) pen pen needle, diabetic 31 gauge x 5/16 needle Other Relevant Orders Follow Up In Primary Care - Established Cholesterol, LDL Direct Comprehensive Metabolic Panel Hemoglobin A1C GERD (gastroesophageal reflux disease) K21.9 Currently stable. Relevant Orders Follow Up In Primary Care - Established Hyperlipidemia E78.5 Stable currently with rosuvastatin. Relevant Orders Follow Up In Primary Care - Established Cholesterol, LDL Direct Comprehensive Metabolic Panel Hypertension, essential, benign I10 Blood pressure under good control renal function stable no change. Relevant Orders Follow Up In Primary Care - Established Comprehensive Metabolic Panel Insomnia disorder G47.00 Relevant Orders Follow Up In Primary Care - Established Neurogenic claudication due to lumbar spinal stenosis M48.062 Relevant Orders Follow Up In Primary Care - Established Sleep apnea G47.30 Relevant Orders Follow Up In Primary Care - Established Obesity, morbid (Multi) E66.01 Encouraged about diet and exercise. Relevant Orders Follow Up In Primary Care - Established 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 (Multi) C18.9 Following with oncology at the [facility], to start chemotherapy in the next month. Relevant Orders Follow Up In Primary Care - Established Other Visit Diagnoses Codes Routine general medical examination at [facility] Z00.00 Relevant Orders Follow Up In Primary Care - Established [facility] [place] Work Phone: [phone]) [phone] Instructions* Patient Instructions* Dayami Roe MD - 01/01/2024 8:40 AM EDT Monitor sugars around chemotherapy, use 20 units of your insulin if sugar goes over 200. documented [facility]Access [facility] [place] Work Phone: [phone]) [phone] Telephone encounter Note* Telephone Encounter - Amparo Razo LISW - 12/25/2023 11:14 AM EDT Pt noted on [facility] 1st time treatment report. Pt has a non-oncology regimen. No social work followup indicated. VIRGIL Duran [facility]06-28-2024 Miscellaneous Notes* Telephone Encounter - Amparo Razo LISW - 12/25/2023 11:14 AM EDT Pt noted on [facility] 1st time treatment report. Pt has a non-oncology regimen. No social work followup indicated. VIRGIL Duran documented in this encounterAden[facility]06-[facility] Telephone encounter Note * Telephone Encounter - Aarti Bar DO - 12/18/2023 5:03 PM EDT I also sent prescription for 3 days of dexamethasone and Zofran. Aarti Bar DO [facility] Miscellaneous Notes* Telephone Encounter - Aarti Bar DO - 12/18/2023 5:03 PM EDT I also sent prescription for 3 days of dexamethasone and Zofran. Aarti Bar DO * Telephone Encounter - Jackie Noyola RN - 12/18/2023 2:18 PM EDT Chemo education completed. Needs Rx for antiemetic and Emla cream. Pended. Please review. Melvi Noyola RN documented in this encounterAdena Health System06-21-2024 History of Present illness Narrative* Jackie Noyola RN - 12/18/2023 3:36 PM EDT Patient teaching was completed over the phone. Jackie Noyola RN It Quality Analyst Pre Chemo Patient identified by name and date of . YES Confirmed date and time for chemotherapy ? YES Other appointments (labs, imaging) discussed? 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 NO Described the infusion room and what to expect. (What to wear, what to bring [iPad, books] amount of time treatment can take, meals and CC options for food) YES Note: na Discussed whether the patient can eat prior to labs and treatment. YES Who is driving you to and from treatment? Spouse Discussed why it is important to bring someone with you. Yes, first treatment Resources discussed (music therapy, Art therapy, pet therapy, etc.) YES Education on chemotherapy (drug, side effects) discussed and that the patient will be receiving a C1D1 call within 7 days of treatment. YES Other topics discussed, interventions needed: kimberley Noyola RN * Jackie Noyola RN - 12/18/2023 3:32 PM EDT ONCOLOGY PATIENT EDUCATION NOTE TOPIC: Chemotherapy, Medications: Folfox/Avastin patient called today for education for treatment of Colon / Rectal Cancer Anticipated/Scheduled start date: 01/06/24 READINESS TO LEARN: COGNITIVE ABILITY: Alert and oriented MOTIVATION TO LEARN: Interested FAMILY SUPPORT: High - Very involved in pt care INSTRUCTION PROVIDED TO: Patient INSTRUCTION PROVIDED BY: Nurse Coordinator PATIENT LEARNS BEST BY: Multiple Methods FACTORS AFFECTING LEARNING: None PHYSICAL LIMITATIONS AFFECTING LEARNING: None LEARNING RESPONSE METHOD OF INSTRUCTION: Individual instruction Written instruction/Handouts Verbal instruction PATIENT/FAMILY RESPONSE: Verbalizes understanding of: CHEMOTHERAPY-Regimen, toxicity and side effects FOLLOW UP PLAN: Recommend - Recommend continued instruction and follow up as directed Contact information given. SUPPLEMENTAL MATERIAL: Written material was provided at this visit with the following information: - Chemotherapy education was provided by a pharmacist NO - Side effect management information was provided/discussed including but not limited to: anemia, bowel habit changes, fatigue, mucositis, nausea/vomitting, neutropenia, peripheral neuropathy, rash, skin changes, taste changes, thrombocytopenia YES - Provided important phone numbers and contacts during and after hours. YES - Provided information on symptoms that require immediate assistance. YES - Provided Chemotherapy when to call handouts YES - Preventing infection. YES - Treatment schedule and confirmation of appointment times. YES - Available support groups. YES - The importance of contraception during the course of chemotherapy NA - Neutropenic fever protocol discussed with patient, which included the importance of reporting anyfever of 100.4F (38.0C) or greater to the healthcare team as noted on the provided wallet card and/or magnet. YES Time Spent: 45 minutes REFERRAL (RECOMMENDATION): Social Work, to call patient at a later time. Jackie Noyola RN documented in this encounterAdena Health System06-21-2024 Telephone encounter Note * Telephone Encounter - Jackie Noyola RN - 12/18/2023 2:18 PM EDT Chemo education completed. Needs Rx for antiemetic and Emla cream. Pended. Please review. Melvi Noyola RN [facility] Work Phone: [phone]) [phone] Telephone encounter Note* Telephone Encounter - Bhavna Pritchett - 12/17/2023 1:47 PM EDT Chemo scheduled Start email sent [facility] Work Phone: [phone]) [phone] Miscellaneous Notes* Telephone Encounter - Bhavna Pritchett - 12/17/2023 1:47 PM EDT Chemo scheduled Start email sent * Telephone Encounter - Bhavna Pritchett - 12/17/2023 1:28 PM EDT Scheduled iron with patient Start email sent * Telephone Encounter - Aarti Bar DO - 12/16/2023 4:54 PM EDT Can let him know he is definitely low on iron. Please schedule for 5 doses of iron sucrose. Can start that prior to starting chemotherapy. Aarti Bar DO * Telephone Encounter - Nury Hunter - 12/15/2023 3:22 PM EDT Check out comments: Begin Folfox/Avastin when able. CBC/CMP straight back D1. CBC/CMP/MAG/CEA/OV for cycle 2 and subsequent cycles. Chemo Ed scheduled for 12/18/23. Patient already has port. Please schedule once orders have dropped into [place]. Nury Hunter documented in this encounterAdena Health System06-20-2024 Telephone encounter Note * Telephone Encounter - Bhavna Pritchett - 12/17/2023 1:28 PM EDT Scheduled iron with patient Start email sent [facility]06-19-20[facility] Telephone encounter Note* Telephone Encounter - Aarti Bar DO - 12/16/2023 4:54 PM EDT Can let him know he is definitely low on iron. Please schedule for 5 doses of iron sucrose. Can start that prior to starting chemotherapy. Aarti Bar DO [facility]06-18-[facility] Telephone encounter Note* Telephone Encounter - Nury Hunter - 12/15/2023 3:22 PM EDT Check out comments: Begin Folfox/Avastin when able. CBC/CMP straight back D1. CBC/CMP/MAG/CEA/OV for cycle 2 and subsequent cycles. Chemo Ed scheduled for 12/18/23. Patient already has port. Please schedule once orders have dropped into [place]. Nury Hunter [facility]06-18-2024 History of Present illness Narrative* Aarti Bar DO - 12/15/2023 2:00 PM EDT Patient referred by Dayami Roe for metastatic colon cancer. The impression and plan will be communicated by way of the shared electronic record or faxed under separate cover letter. HPI: The patient is a 78-year-old male with a past medical history as outlined below. Had a colonoscopy in 2019 during which evidently showed one polyp. Had about 2 year history right abdominal pain. Insomnia. Had work up [facility] 02/2022. Admitted to [facility] in September with hemoglobin of 5.5 g/dL and black tarry stools. Got 3 units RBCs and IV iron. CTA 10/20/2023: 1. No acute pulmonary emboli. 2. There is a mass in the cecum measuring approximately 6.7 cm in greatest dimension consistent with colon cancer. There are a few mildly enlarged mesenteric lymph nodes in the right lower quadrant likely representing local metastatic rolando disease. 3. Multiple ill-defined low-density metastatic lesions in the liver. 4. Numerous metastatic nodules and masses throughout both lungs. A few of these lesions abut the pleural surface but do not clearly invade into the chest wall. 5. Hazy ground-glass density throughout the lungs likely related to pulmonary edema. No pleural effusion. 6. There are a few small to borderline enlarged mediastinal and hilar lymph nodes that are nonspecific. Colonoscopy 10/20/2023: A frond-like/villous non-obstructing large mass was found in the cecum. No bleeding was present. Biopsies were taken with a cold forceps for histology. Multiple small and large-mouthed diverticula were found in the sigmoid colon and descending colon. External hemorrhoids were found. The hemorrhoids were small. EGD was unremarkable. Underwent robotic right hemicolectomy, small bowel resection, liver biopsy and port placement on 10/21/2023. COLON: ADENOCARCINOMA Procedure: Right hemicolectomy Macroscopic evaluation of mesorectum (for rectal cancer): Not applicable Tumor site: Cecum Histologic type: Adenocarcinoma Histologic grade: G2: Moderately differentiated Tumor size: 10 cm Multiple primary sites: Not applicable (no additional primary sites present) Tumor extent: Directly invades or adheres to adjacent structure(s): Small bowel Submucosal Invasion (for pT1 tumors only) Not applicable (not a pT1 tumor) Macroscopic tumor perforation: Not identified Lymphatic and/or vascular invasion: Not identified Perineural invasion: Not identified Tumor budding score: High (10 or more) Treatment effect: No known presurgical therapy Margins: Margin status for invasive carcinoma: All margins negative for invasive carcinoma Margin status for non-invasive tumor: All margins negative for high-grade dysplasia / intramucosal carcinoma and low-grade dysplasia Regional lymph nodes: Regional lymph node status: Tumor present in regional lymph node(s) Number of lymph nodes with tumor: 2 Number of lymph nodes examined: 31 Tumor deposits: Present (count = 1) Distant site(s) involved: Liver AJCC 8th edition pathologic stage: Modified Classification: Not applicable pT4b pN1b pM1a MMR Studies (performed on current case) MLH1: Intact protein expression. MSH2: Intact protein expression. MSH6: Intact protein expression. PMS2: Intact protein expression. A. Liver, biopsy: Adenocarcinoma, morphologically consistent with metastatic colonic primary. B. Colon, right hemicolectomy: Invasive moderately differentiated adenocarcinoma. See synoptic report. PET 11/25/2023--demonstrated postsurgical changes in the abdomen. There are hypermetabolic bilaterallung masses and hypermetabolic right hilar adenopathy suspicious for metastatic disease. The largest of the bilateral lung masses measured up to 4.2 x 5.5 cm on the right. Multiple hypermetabolic liver masses measuring up to 4.1 were observed. Spleen size was noted to be borderline. No bone metastases observed. Feeling much better. No pain. Bowels moving regularly. Mostly formed stools. Occasionally loose. No other GI symptoms. No longer short of breath. Past Medical History: Diabetes mellitus (HCC) Hyperlipidemia Hypertension Sleep apnea has a CPAP Past Surgical History: Procedure Laterality Date ANKLE ARTHROSCOPY W/ OPEN REPAIR Left 1967 APPENDECTOMY 1961 CARDIAC CATHETERIZATION N/A 02/10/2022 Procedure: Left Heart Cath Possbile PTCA/Stent; Surgeon: Baljinder Banegas MD; Location: [facility]; Service: Cardiovascular CARDIAC CATHETERIZATION N/A 02/10/2022 Procedure: Coronary Angiogram; Surgeon: Baljinder Banegas MD; Location: [facility]; Service: Cardiovascular CARDIAC CATHETERIZATION N/A 02/10/2022 Procedure: Instant Wave Free Ratio; Surgeon: Baljinder Banegas MD; Location: [facility]; Service: Cardiovascular CARDIAC CATHETERIZATION N/A 02/10/2022 Procedure: Fractional Flow Ruffin; Surgeon: Baljinder Banegas MD; Location: [facility]; Service: Cardiovascular COLONOSCOPY N/A 10/20/2023 Procedure: COLONOSCOPY with biopsy; Surgeon: Joe Rojas MD; Location: [facility]; Service: Gastroenterology CT COLONOSCOPY 03/01/[address] COLONOSCOPY 07/16/2018 CT COLONOSCOPY EGD N/A 10/20/2023 Procedure: ESOPHAGOGASTRODUODENOSCOPY; Surgeon: Joe Rojas MD; Location: [facility]; Service: Gastroenterology INSERTION SUBCUTANEOUS PORT N/A 10/21/2023 Procedure: INSERTION SUBCUTANEOUS PORT; Surgeon: Austen Hall MD; Location: Main OR; Service: [employer] KNEE ARTHROPLASTY Right 1999 MT LAPS COLECTOMY PRTL W/RMVL TERMINAL ILEUM Right 10/21/2023 Procedure: COLECTOMY RIGHT ROBOTIC XI AND SMALL BOWEL RESECTION WITH LYMPH NODE DISSECTION AND LIVER BIOPSY; Surgeon: Austen Hall MD; Location: [facility]; Service: [employer] Social History Marital status: Tobacco Use Smoking status: Smokeless tobacco: Never Vaping Use Vaping Use: Never used Substance and Sexual Activity Alcohol use: Never Drug use: Never Sexual activity: Not Currently Family History Problem Relation Age of Onset Heart attack Mother Sister had breast cancer and at age 53 ROS: Constitutional: No fever. No drenching night sweats. Normal appetite. No unexplained weight loss. No significant fatigue. Neuro: No recent SARAH, vertigo, dizziness or imbalance. No symptoms of sensory neuropathy. HEENT: No recent change in voice, vision or hearing. Resp: No cough, wheeze of hemoptysis. No shortness of breath at rest. No FERNANDEZ. CVS: No exertional chest pain, PND or orthopnea. No extremity swelling/edema. No symptoms of claudication. No painful or tender varicose veins. GI: See HPI. : No dysuria or gross hematuria. Endo: No hot flashes. No polyuria or polydipsia. No heat or cold intolerance. Musculoskeletal: No bone, back, joint and muscular pain. Derm: No current rash. No history of jaundice. No diffuse pruritis. Heme: No unusual bleeding and unexplained bruising. Psych: Normal mood. PHYSICAL EXAM: Vitals: Blood pressure 132/76, pulse 96, temperature 37.1 C (98.8 F), temperature source Temporal, height 164 cm (5' 4.57), weight 94.3 kg (208 lb), SpO2 94%. Well-appearing and in no acute distress. EYES: Sclerae are anicteric bilaterally. ENT: Oral mucosa is unremarkable. There is no sign of thrush or mucositis. LYMPHATIC: There is no palpable cervical, supraclavicular, axillary adenopathy. RESPIRATORY: Inspiratory breath sounds are of normal intensity in all farfan. No rales, wheezes or rhonchi. CARDIOVASCULAR: Rhythm is regular. ABDOMEN: The abdomen is nondistended. No splenomegaly or hepatomegaly. No tenderness. All incisionsand trocar sites well-healed. SKIN: No jaundice. 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 -Mismatch repair proficient. -KRAS mutation. -PS is 0. -Comorbid conditions: DM2 (no neuropathy), hypertension, hyperlipidemia and BRYCE. -I reviewed the PET scan images with the patient and his family. -We discussed goals of care are palliation and prolongation of overall survival. -I recommended starting therapy with FOLFOX and bevacizumab. -I discussed the rationale, logistics, potential risks (including but not limited to cytopenias, nausea vomiting, diarrhea, rash, stomatitis, cytopenias, neuropathy, infectious complications and the small potential for as a consequence of severe toxicity/complications of therapy), benefits and alternatives, as well as the personnel involved in the administration of FOLFOX with bevacizumab. I answered his questions in detail and he verbalized understanding and agreed with the recommended therapy. Please see the electronic consent document for details of doses and schedule. -Most recent outside lab work suggests iron deficiency anemia. Plan: -CBC, CMP, CEA, hepatitis remote panel, DPYD genotyping and iron studies today. -Parenteral iron indicated if low (on PPI and need to replete iron stores quickly). -Rx for Zofran, dexamethasone and olanzapine (once we know his pharmacy). -Begin FOLFOX with bevacizumab once approved. -Monitor urine for protein every other cycle. -Monitor blood pressure. -CT following 4 cycles. I spent a total of 75 minutes on the date of the service which included preparing to see the patient, [id number] patient care, completing clinical documentation, obtaining and/or reviewing separately obtained history, performing a medically appropriate examination, counseling and educating the pat ient/family/caregiver, ordering medications, tests, or procedures, communicating with other HCPs (not separately reported), and communicating results to the patient/family/caregiver. Aarti Bar DO documented in this encounterAdena [facility] System06-03-2024 NoteHematology and Oncology Consult Note Patient Name: Dipti Sierra : 1945 Physicians: Dayami Roe MD (Family); No ref. provider found (Referring) History of present illness Dipti Sierra is a 78 y.o. y/o male with c/o metaastatic colon cancer wants result of PET/CT Oncologic history This 78 yo obese male presented to discuss the extent of his metastatic disease and the possibility of starting Pembrolizumab and FolFOX. He wanted to know if he decided to start if he could start without the pembrolizumab first And then decide if he wanted to add it. His son and were present for this visit. Past Medical, Surgical, Family, and Social History: Past Medical History: Diagnosis Date Diabetes mellitus (HCC) Hyperlipidemia Hypertension Sleep apnea has a CPAP Past Surgical History: Procedure Laterality Date ANKLE ARTHROSCOPY W/ OPEN REPAIR Left 1967 APPENDECTOMY 1961 CARDIAC CATHETERIZATION N/A 02/10/2022 Procedure: Left Heart Cath Possbile PTCA/Stent; Surgeon: Baljinder Banegas MD; Location: [facility]; Service: Cardiovascular CARDIAC CATHETERIZATION N/A 02/10/2022 Procedure: Coronary Angiogram; Surgeon: Baljinder Banegas MD; Location: [facility]; Service: Cardiovascular CARDIAC CATHETERIZATION N/A 02/10/2022 Procedure: Instant Wave Free Ratio; Surgeon: Baljinder Banegas MD; Location: [facility]; Service: Cardiovascular CARDIAC CATHETERIZATION N/A 02/10/2022 Procedure: Fractional Flow Ruffin; Surgeon: Baljinder Banegas MD; Location: [facility]; Service: Cardiovascular COLONOSCOPY N/A 10/20/2023 Procedure: COLONOSCOPY with biopsy; Surgeon: Joe Rojas MD; Location: [facility]; Service: Gastroenterology CT COLONOSCOPY 03/01/[address] COLONOSCOPY 07/16/2018 CT COLONOSCOPY EGD N/A 10/20/2023 Procedure: ESOPHAGOGASTRODUODENOSCOPY; Surgeon: Joe Rojas MD; Location: Endo; Service: Gastroenterology INSERTION SUBCUTANEOUS PORT N/A 10/21/2023 Procedure: INSERTION SUBCUTANEOUS PORT; Surgeon: Austen Hall MD; Location: [facility] OR; Service: [employer] KNEE ARTHROPLASTY Right 1999 MT LAPS COLECTOMY PRTL W/RMVL TERMINAL ILEUM Right 10/21/2023 Procedure: COLECTOMY RIGHT ROBOTIC XI AND SMALL BOWEL RESECTION WITH LYMPH NODE DISSECTION AND LIVER BIOPSY; Surgeon: Austen Hall MD; Location: Main OR; Service: Gen-Robotics Family History Problem Relation Age of Onset Heart attack Mother Social History Socioeconomic History Marital status: Tobacco Use Smoking status: Never Smokeless tobacco: Never Vaping Use Vaping Use: Never used Substance and Sexual Activity Alcohol use: Never Drug use: Never Sexual activity: Not Currently Social Determinants of Health Food Insecurity: No Food Insecurity (10/19/2023) Hunger Vital Sign Worried About Running Out of Food in the Last Year: Never true Ran Out of Food in the Last Year: Never true Transportation Needs: No Transportation Needs (10/19/2023) PRAPARE - Transportation Lack of Transportation (Medical): No Lack of Transportation (Non-Medical): No Housing Stability: Low Risk (10/19/2023) Housing Stability Vital Sign Unable to Pay for Housing in the Last Year: No Number of Places Lived in the Last Year: 1 Unstable Housing in the Last Year: No Other HX: Allergies and Medications: : I have reviewed the patient's allergies. Lisinopril and Metformin Home Medications: Patient's Medications New Prescriptions No medications on file Previous Medications ACETAMINOPHEN (TYLENOL) 500 MG TABLET Take 1 (one) tablet (500 mg total) by mouth as needed for pain . ASPIRIN 81 MG EC TABLET Take 1 (one) tablet (81 mg total) by mouth every morning . ASPIRIN-CAFFEINE (KIA BACK AND BODY) 500-32.5 MG TAB Take 1 tablet by mouth as needed . AZELASTINE (ASTELIN) 137 MCG (0.1 %) NASAL SPRAY 2 (two) sprays by Each Nare route 2 (two) times a day . GLIMEPIRIDE (AMARYL) 4 MG TABLET Take 1 Unspecified by mouth daily . HYDROCHLOROTHIAZIDE 12.5 MG TABLET Take 1 (one) tablet (12.5 mg total) by mouth daily Start: 10/30/23. NALOXONE (NARCAN) 4 MG/ACTUATION SPRY Administer 1 spray into one nostril for known or suspected opioid overdose. If patient worsens or does not respond, may repeat in 2-3 minutes. . OMEPRAZOLE (PRILOSEC) 40 MG CAPSULE Take 1 (one) capsule (40 mg total) by mouth daily with dinner . PIOGLITAZONE (ACTOS) 30 MG TABLET Take 1 (one) tablet (30 mg total) by mouth every morning . POTASSIUM CHLORIDE 10 MEQ CR TABLET Take 1 Unspecified by mouth . ROSUVASTATIN (CRESTOR) 10 MG TABLET Take 1 (one) tablet (10 mg total) by mouth every morning . TRAZODONE (DESYREL) 50 MG TABLET Take 0.5 (one-half) tablet (25 mg total) by mouth nightly . ZOLPIDEM (AMBIEN) 10 MG TABLET Take 1 (one) tablet (10 mg total) by mouth nightly . Modified Medications No medications on file Discontinued Medicati (more content not included)...[facility] 11-30-2023 History of Present illness Narrative* LulúHayden mcfadden Jo, DO - 11/30/2023 12:08 PM EDT Hematology and Oncology Consult Note Patient Name: Dipti Sierra : 1945 Physicians: Dayami Roe MD (Family); No ref. provider found (Referring) History of present illness Dipti Sierra is a 78 y.o. y/o male with c/o metaastatic colon cancer wants result of PET/CT Oncologic history This 78 yo obese male presented to discuss the extent of his metastatic disease and the possibilityof starting Pembrolizumab and FolFOX. He wanted to know if he decided to start if he could start without the pembrolizumab first And then decide if he wanted to add it. His son and were present for this visit. Past Medical, Surgical, Family, and Social History: Past Medical History: Diagnosis Date Diabetes mellitus (HCC) Hyperlipidemia Hypertension Sleep apnea has a CPAP Past Surgical History: Procedure Laterality Date ANKLE ARTHROSCOPY W/ OPEN REPAIR Left 1967 APPENDECTOMY 1961 CARDIAC CATHETERIZATION N/A 02/10/2022 Procedure: Left Heart Cath Possbile PTCA/Stent; Surgeon: Baljinder Banegas MD; Location: [facility]; Service: Cardiovascular CARDIAC CATHETERIZATION N/A 02/10/2022 Procedure: Coronary Angiogram; Surgeon: Baljinder Banegas MD; Location: [facility]; Service: Cardiovascular CARDIAC CATHETERIZATION N/A 02/10/2022 Procedure: Instant Wave Free Ratio; Surgeon: Baljinder Banegas MD; Location: [facility]; Service: Cardiovascular CARDIAC CATHETERIZATION N/A 02/10/2022 Procedure: Fractional Flow Ruffin; Surgeon: Baljinder Banegas MD; Location[facility]; Service: Cardiovascular COLONOSCOPY N/A 10/20/2023 Procedure: COLONOSCOPY with biopsy; Surgeon: Joe Rojas MD; Location: Endo; Service: Gastroenterology CT COLONOSCOPY 03/01/[address] COLONOSCOPY 07/16/2018 CT COLONOSCOPY EGD N/A 10/20/2023 Procedure: ESOPHAGOGASTRODUODENOSCOPY; Surgeon: Joe Rojas MD; Location: Endo; Service: Gastroenterology INSERTION SUBCUTANEOUS PORT N/A 10/21/2023 Procedure: INSERTION SUBCUTANEOUS PORT; Surgeon: Austen Hall MD; Location: [facility] OR; Service: [employer] KNEE ARTHROPLASTY Right 1999 MT LAPS COLECTOMY PRTL W/RMVL TERMINAL ILEUM Right 10/21/2023 Procedure: COLECTOMY RIGHT ROBOTIC XI AND SMALL BOWEL RESECTION WITH LYMPH NODE DISSECTION AND LIVER BIOPSY; Surgeon: Austen Hall MD; Location: [facility] OR; Service: Gen-[employer] Family History Problem Relation Age of Onset Heart attack Mother Social History Socioeconomic History Marital status: Tobacco Use Smoking status: Never Smokeless tobacco: Never Vaping Use Vaping Use: Never used Substance and Sexual Activity Alcohol use: Never Drug use: Never Sexual activity: Not Currently Social Determinants of Health Food Insecurity: No Food Insecurity (10/19/2023) Hunger Vital Sign Worried About Running Out of Food in the Last Year: Never true Ran Out of Food in the Last Year: Never true Transportation Needs: No Transportation Needs (10/19/2023) PRAPARE - Transportation Lack of Transportation (Medical): No Lack of Transportation (Non-Medical): No Housing Stability: Low Risk (10/19/2023) Housing Stability Vital Sign Unable to Pay for Housing in the Last Year: No Number of Places Lived in the Last Year: 1 Unstable Housing in the Last Year: No Other HX: Allergies and Medications: : I have reviewed the patient's allergies. Lisinopril and Metformin Home Medications: Patient's Medications New Prescriptions No medications on file Previous Medications ACETAMINOPHEN (TYLENOL) 500 MG TABLET Take 1 (one) tablet (500 mg total) by mouth as needed for pain . ASPIRIN 81 MG EC TABLET Take 1 (one) tablet (81 mg total) by mouth every morning . ASPIRIN-CAFFEINE (KIA BACK AND BODY) 500-32.5 MG TAB Take 1 tablet by mouth as needed . AZELASTINE (ASTELIN) 137 MCG (0.1 %) NASAL SPRAY 2 (two) sprays by Each Nare route 2 (two) times a day . GLIMEPIRIDE (AMARYL) 4 MG TABLET Take 1 Unspecified by mouth daily . HYDROCHLOROTHIAZIDE 12.5 MG TABLET Take 1 (one) tablet (12.5 mg total) by mouth daily Start: 10/30/23. NALOXONE (NARCAN) 4 MG/ACTUATION SPRY Administer 1 spray into one nostril for known or suspected opioid overdose. If patient worsens or does not respond, may repeat in 2-3 minutes. . OMEPRAZOLE (PRILOSEC) 40 MG CAPSULE Take 1 (one) capsule (40 mg total) by mouth daily with dinner . PIOGLITAZONE (ACTOS) 30 MG TABLET Take 1 (one) tablet (30 mg total) by mouth every morning . POTASSIUM CHLORIDE 10 MEQ CR TABLET Take 1 Unspecified by mouth . ROSUVASTATIN (CRESTOR) 10 MG TABLET Take 1 (one) tablet (10 mg total) by mouth every morning . TRAZODONE (DESYREL) 50 MG TABLET Take 0.5 (one-half) tablet (25 mg total) by mouth nightly . ZOLPIDEM (AMBIEN) 10 MG TABLET Take 1 (one) tablet (10 mg total) by mouth nightly . Modified Medications No medications on file Discontinued Medications No medications on file Review of Systems : The following system(s) were reviewed and pertinent findings noted: PSH: hemicolectomy and liver bxrigh knee arthroscopy, young Ankle arthroscopy. Resp: non smoker no hx of pneumonia, has slight SOB with exertion CV> cardiaccath in the past with coronary calcifications GI: no hx of hepatitis and states he eats healthy but would like additional nutritional informationas it relates to chemotherapy : no hx of CKD Fam Hx: cardiac disease Physical Exam: Alert obese male no abdominal pain and states he has no restrictions at home at this time. He is undecided about if he wants chemo but would like information on diet. Heart RRR Lungs CTA abd was protuberant due to obesity he is able to ambulate with wide based gait and DTR's are diminished. His surgical incisions are well healed. We read the results of the PET ct done last week. Mediport is intact and is ready for treatment if patient agrees understands this is not curative intent but may prolong lifespan Laboratory and Additional Data Reviewed: Laboratory 11/30/23 12:09 PM Microbiology 11/30/23 12:09 PM Pathology 11/30/23 12:09 PM Radiology 11/30/23 12:09 PM Cardiology 11/30/23 12:09 PM Medications 11/30/23 12:09 PM Transcriptions 11/30/23 12:09 PM No results for input(s): WBC, HGB, PLT in the last 72 hours. No results for input(s): NA, K, CL, BICARB, BUN, CREATININE, GLUCOSE, PHOS, MG, DREW, CALCIUM, BILITOT, ALKPHOS, ALT, AST, PROT, ALBUMIN in the last 72 hours. Invalid input(s): ALB No results for input(s): INR, PTT in the last 72 hours. No orders to display IMPRESSION : ASSESSMENT AND PLAN: Metastatic adenocarcinoma of colon COPD Morbid Obesity Degenerative Arthritis Plan: will await decision on FOLFOX treatment he wants to wait for immunotherapy at this time. The genomic testing indicated FDA approved therapies include cetuximab or panitumumab added to FOLFOX, patient was given number for clinic to call when he is ready to start. RTC one month Hayden Balderas DO documented in this [id number] Instructions* Patient Instructions* Neli Guevara RN - 11/30/2023 11:31 AM EDT Please call the office on Thursday if you decide to do treatment, , follow the prompts for Dr. Balderas's nurse. documented in this [id number] Telephone encounter Note* Telephone Encounter - Justyna Delcid LPN - 11/25/2023 4:27 PM EDT I requested PET images to be pushed. Justyna Delcid LPN [facility]05-29-2024 Miscellaneous Notes* Telephone Encounter - Justyna Delcid LPN - 11/25/2023 4:27 PM EDT I requested PET images to be pushed. Justyna Delcid LPN * Telephone Encounter - Klaudia Lundy - 11/25/2023 3:40 PM EDT Patient called back and was scheduled for first available new patient appointment which was with for 12/15/23 @ 2:00 pm, patient is concerned maybe he should not wait this long. He stated he just had a PET scan done yesterday at [facility] in [place]. I told the patient we would let him know if there was a possibility of getting him in sooner, but he could speak to his PCP about going somewhere else also. I told him we could also [facility] He wanted to wait for right now. Klaudia Cohen * Telephone Encounter - Sally Caldera - 11/25/2023 2:40 PM EDT Called patient and left a vm to return our call * Telephone Encounter - Denae Carbone LPN - 11/20/2023 9:19 AM EDT Referral never received. 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 Surgery was at [facility] and some testing was done at . Dr. Roe is patient's PCP. Patient will contact his office to have referral faxed. Denae Carbone LPN * Telephone Encounter - Bhavna Pritchett - 11/19/2023 3:36 PM EDT Patient states new patient referral was faxed to us on Thursday from Dr. Roe. documented in this encounterAdena [facility] System05-29-2024 Telephone encounter Note * Telephone Encounter - Klaudia Lundy - 11/25/2023 3:40 PM EDT Patient called back and was scheduled for first available new patient appointment which was with for 12/15/23 @ 2:00 pm, patient is concerned maybe he should not wait this long. He stated he just had a PET scan done yesterday at [facility] in [place]. I told the patient we would let him know if there was a possibility of getting him in sooner, but he could speak to his PCP about going somewhere else also. I told him we could also [facility] He wanted to wait for right now. Klaudia Cohen [facility]05-29-2024 Telephone encounter Note* Telephone Encounter - Sally Caldera - 11/25/2023 2:40 PM EDT Called patient and left a vm to return our call [facility]05-24-2024 Telephone encounter Note* Telephone Encounter - Denae Carbone LPN - 11/20/2023 9:19 AM EDT Referral never received. 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 Surgery was at [facility] and some testing was done at . Dr. Roe is patient's PCP. Patient will contact his office to have referral faxed. Denae Carbone LPN [facility]05-23-2024 Telephone encounter Note* Telephone Encounter - Delaney Pritchettissa - 11/19/2023 3:36 PM EDT Patient states new patient referral was faxed to us on Thursday from Dr. Roe. [facility]05-17-2024 Evaluation + Plan note* Assessment & Plan Note - Dayami Roe MD - 11/13/2023 1:05 PM EDTAssociated Problem(s): Sleep apnea Advised to use CPAP device nightly, will check a nocturnal pulse oximetry without oxygen supplementation, if O2 sat below 88% will set up for O2 bleed in at night. [facility] Work Phone: [phone]) 149-505205-17-2024 Miscellaneous Notes* Assessment & Plan Note - Dayami Roe MD - 11/13/2023 1:05 PM EDTAssociated Problem(s): Sleep apnea Advised to use CPAP device nightly, will check a nocturnal pulse oximetry without oxygen supplementation, if O2 sat below 88% will set up for O2 bleed in at night. * Assessment & Plan Note - Dayami Roe MD - 11/13/2023 1:04 PM EDT Associated Problem(s): 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 (Multi) Patient with presumed stage IV colorectal cancer, had surgery at the cecum with hemicolectomy, is not happy with oncology services at [facility], will get second opinion from [facility]. * Assessment & Plan Note - Dayami Roe MD - 11/13/2023 1:04 PM EDT Associated Problem(s): Anemia Check labs today, seems like it was improving after surgery. Patient is subjectively feeling better. [facility] Work Phone: [phone] 860-601905-17-2024 Evaluation + Plan note* Assessment & Plan Note - Dayami Roe MD - 11/13/2023 1:04 PM EDTAssociated Problem(s): 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 (Multi) Patient with presumed stage IV colorectal cancer, had surgery at the cecum with hemicolectomy, is not happy with oncology services at [facility], will get second opinion from [facility]. [facility] Work Phone: [phone]) 286-407605-17-2024 Evaluation + Plan note* Assessment & Plan Note - Dayami Roe MD - 11/13/2023 1:04 PM EDTAssociated Problem(s): Anemia Check labs today, seems like it was improving after surgery. Patient is subjectively feeling better. [facility] Work Phone: [phone]) 756-680105-17-2024 History of Present illness Narrative* Dayami Roe MD - 11/13/2023 11:00 AM EDT Patient: Dipti Sierra : 1945 PCP: Dayami Roe MD Program: Transitional Care Management Status: Enrolled Effective Dates: 10/30/2023 - present Responsible Staff: Tara To RN Social Determinants to be Addressed: Alcohol Use, Financial Resource Strain, Physical Activity, Social Connections, Stress, Tobacco Use, Transportation Needs Dipti Sierra is a 78 y.o. male presenting today for follow-up after being discharged from the hospital 15 days ago. The main problem requiring admission was colon cancer and anemia. The discharge summary and/or Transitional Care Management documentation was reviewed. Medication reconciliation was performed as indicated via the Lencho as Reviewed timestamp. Dipti Sierra was contacted by Transitional Care Management services two days after his discharge. This encounter and supporting documentation was reviewed. Patient post hospitalization at [facility] from 10/18 to 10/28 for anemia and found to have metastatic colon cancer, had right hemicolectomy on 10/20 for a cecal mass, had some post-op ileus issues, Hgbwas 5.5 at admission, gave 2 U PRBC in hospital, had post hospital follow-up with surgery 11/08 and oncology on 11/10 Sent home with O2, not wearing now, SOB improved, coughing better Feeling better since surgery, sleeping better (6-8 hours) Using CPAP, using an incentive spirometer Weight down 30 pounds since last seen in June Uses [facility] for home O2 Review of Systems Constitutional: Negative for activity change, appetite change, fatigue and unexpected weight change. HENT: Negative for ear pain, nosebleeds, rhinorrhea, sneezing and trouble swallowing. Respiratory: Negative for cough, shortness of breath and wheezing. Cardiovascular: Negative for chest pain, palpitations and leg swelling. Gastrointestinal: Negative for abdominal distention, abdominal pain, constipation, diarrhea, nauseaand vomiting. Genitourinary: Negative for difficulty urinating. Musculoskeletal: Negative for arthralgias. Skin: Negative for rash. Neurological: Negative for dizziness, light-headedness, numbness and headaches. Hematological: Negative for adenopathy. Psychiatric/Behavioral: Negative for behavioral problems. All other systems reviewed and are negative. BP 130/60 Pulse 105 Ht 1.702 m (5' 7) Wt 94.3 kg (207 lb 14.4 oz) SpO2 93% BMI 32.56 kg/m Physical Exam Vitals and nursing note reviewed. Constitutional: General: He is not in acute distress. Appearance: Normal appearance. He is not toxic-appearing. HENT: Head: Normocephalic and atraumatic. Right Ear: Tympanic membrane, ear canal and external ear normal. Left Ear: Tympanic membrane, ear canal and external ear normal. Nose: Nose normal. Mouth/Throat: Mouth: Mucous membranes are moist. Pharynx: Oropharynx is clear. Eyes: Extraocular Movements: Extraocular movements intact. Conjunctiva/sclera: Conjunctivae normal. Pupils: Pupils are equal, round, and reactive to light. Cardiovascular: Rate and Rhythm: Normal rate and regular rhythm. Pulses: Normal pulses. Heart sounds: Normal heart sounds. Pulmonary: Effort: Pulmonary effort is normal. Breath sounds: Normal breath sounds. Abdominal: General: Abdomen is flat. Bowel sounds are normal. Palpations: Abdomen is soft. Musculoskeletal: Cervical back: Normal range of motion and neck supple. Skin: General: Skin is warm and dry. Capillary Refill: Capillary refill takes less than 2 seconds. Neurological: General: No focal deficit present. Mental Status: He is alert and oriented to person, place, and time. Mental status is at baseline. Psychiatric: Mood and Affect: Mood normal. Behavior: Behavior normal. The complexity of medical decision making for this patient's transitional care is high. Assessment/Plan Problem List Items Addressed This Visit ICD-10-CM DM2 (diabetes mellitus, type 2) (Multi) E11.9 Relevant Medications pioglitazone (Actos) 30 mg tablet glimepiride (Amaryl) 4 mg tablet GERD (gastroesophageal reflux disease) K21.9 Relevant Medications omeprazole (PriLOSEC) [address] capsule Hyperlipidemia E78.5 Relevant Medications rosuvastatin (Crestor) 10 mg tablet Hypertension, essential, benign I10 Relevant Medications hydroCHLOROthiazide (Microzide) 12.5 mg capsule Sleep apnea G47.30 Advised to use CPAP device nightly, will check a nocturnal pulse oximetry without oxygen supplementation, if O2 sat below 88% will set up for O2 bleed in at night. Anemia D64.9 Check labs today, seems like it was improving after surgery. Patient is subjectively feeling better. Relevant Orders CBC and Auto Differential Ferritin Reticulocytes Iron and TIBC Vitamin B12 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 (Multi) - Primary C18.9 Patient with presumed stage IV colorectal cancer, had surgery at the cecum with hemicolectomy, is not happy with oncology services at [facility], will get second opinion from [facility]. Relevant Orders Referral to Hematology and Oncology Other Visit Diagnoses Codes Hypoxia R09.02 Try using O2 as needed through the day, pulse oximetry above 88%, check nocturnal pulse oximetry onroom air. [facility] encounterAccess [facility] Work Phone: 1(225) 614-659405-17-2024 Instructions* Patient Instructions* Dayami Roe MD - 11/13/2023 11:00 AM EDT Keep appointment in December, use oxygen as needed and we will check oxygen at night while asleep without oxygen. We will arrange for a second opinion for your cancer treatment documented [facility] encounterAccess [facility] Work Phone: [phone]) 529-197805-15-2024 Instructions* Patient Instructions* Ignacia Patel RN - 11/11/2023 4:37 PM EDT [facility] Scheduling will call you to schedule your PET scan. Please be sure to follow theinstructions provided regarding preparation for scan, if applicable. Please make every effort to keep your scheduled appointment. documented in this [id number] NoteHematology and Oncology Consult Note Patient Name: Dipti Sierra : 1945 Physicians: Dayami Roe MD (Family); No ref. provider found (Referring) History of present illness Dipti Sierra is a 78 y.o. y/o male with c/o evaluation of metastatic ca of colon Oncologic history This 78 yo presented on oxygen therapy 2liter flow with recent resection of colon cancer and + liver bx for metastatic disease Past Medical, Surgical, Family, and Social History: Past Medical History: Diagnosis Date Diabetes mellitus (HCC) Hyperlipidemia Hypertension Sleep apnea has a CPAP Past Surgical History: Procedure Laterality Date ANKLE ARTHROSCOPY W/ OPEN REPAIR Left 1967 APPENDECTOMY 1961 CARDIAC CATHETERIZATION N/A 02/10/2022 Procedure: Left Heart Cath Possbile PTCA/Stent; Surgeon: Baljinder Banegas MD; Location: [facility]; Service: Cardiovascular CARDIAC CATHETERIZATION N/A 02/10/2022 Procedure: Coronary Angiogram; Surgeon: Baljinder Banegas MD; Location: [facility]; Service: Cardiovascular CARDIAC CATHETERIZATION N/A 02/10/2022 Procedure: Instant Wave Free Ratio; Surgeon: Baljinder Banegas MD; Location: [facility]; Service: Cardiovascular CARDIAC CATHETERIZATION N/A 02/10/2022 Procedure: Fractional Flow Ruffin; Surgeon: Baljinder Banegas MD; Location: [facility]; Service: Cardiovascular COLONOSCOPY N/A 10/20/2023 Procedure: COLONOSCOPY with biopsy; Surgeon: Joe Rojas MD; Location: Endo; Service: Gastroenterology CT COLONOSCOPY 03/01/[address] COLONOSCOPY 07/16/2018 CT COLONOSCOPY EGD N/A 10/20/2023 Procedure: ESOPHAGOGASTRODUODENOSCOPY; Surgeon: Joe Rojas MD; Location: [facility]; Service: Gastroenterology INSERTION SUBCUTANEOUS PORT N/A 10/21/2023 Procedure: INSERTION SUBCUTANEOUS PORT; Surgeon: Austen Hall MD; Location: Main OR; Service: [employer] KNEE ARTHROPLASTY Right 1999 MT LAPS COLECTOMY PRTL W/RMVL TERMINAL ILEUM Right 10/21/2023 Procedure: COLECTOMY RIGHT ROBOTIC XI AND SMALL BOWEL RESECTION WITH LYMPH NODE DISSECTION AND LIVER BIOPSY; Surgeon: Austen Hall MD; Location: Main OR; Service: [employer] Family History Problem Relation Age of Onset Heart attack Mother Social History Socioeconomic History Marital status: Tobacco Use Smoking status: Never Smokeless tobacco: Never Vaping Use Vaping Use: Never used Substance and Sexual Activity Alcohol use: Never Drug use: Never Sexual activity: Not Currently Social Determinants of Health Food Insecurity: No Food Insecurity (10/19/2023) Hunger Vital Sign Worried About Running Out of Food in the Last Year: Never true Ran Out of Food in the Last Year: Never true Transportation Needs: No Transportation Needs (10/19/2023) PRAPARE - Transportation Lack of Transportation (Medical): No Lack of Transportation (Non-Medical): No Housing Stability: Low Risk (10/19/2023) Housing Stability Vital Sign Unable to Pay for Housing in the Last Year: No Number of Places Lived in the Last Year: 1 Unstable Housing in the Last Year: No Other HX: Allergies and Medications: : I have reviewed the patient's allergies. Lisinopril and Metformin Home Medications: Patient's Medications New Prescriptions No medications on file Previous Medications ACETAMINOPHEN (TYLENOL) 500 MG TABLET Take 1 (one) tablet (500 mg total) by mouth as needed for pain . ASPIRIN 81 MG EC TABLET Take 1 (one) tablet (81 mg total) by mouth every morning . ASPIRIN-CAFFEINE (KIA BACK AND BODY) 500-32.5 MG TAB Take 1 tablet by mouth as needed . AZELASTINE (ASTELIN) 137 MCG (0.1 %) NASAL SPRAY 2 (two) sprays by Each Nare route 2 (two) times a day . GLIMEPIRIDE (AMARYL) 4 MG TABLET Take 1 Unspecified by mouth daily . HYDROCHLOROTHIAZIDE 12.5 MG TABLET Take 1 (one) tablet (12.5 mg total) by mouth daily Start: 10/30/23. NALOXONE (NARCAN) 4 MG/ACTUATION SPRY Administer 1 spray into one nostril for known or suspected opioid overdose. If patient worsens or does not respond, may repeat in 2-3 minutes. . OMEPRAZOLE (PRILOSEC) 40 MG CAPSULE Take 1 (one) capsule (40 mg total) by mouth daily with dinner . PIOGLITAZONE (ACTOS) 30 MG TABLET Take 1 (one) tablet (30 mg total) by mouth every morning . POTASSIUM CHLORIDE 10 MEQ CR TABLET Take 1 Unspecified by mouth . ROSUVASTATIN (CRESTOR) 10 MG TABLET Take 1 (one) tablet (10 mg total) by mouth every morning . SENNA-DOCUSATE (SENNA-S) 8.6-50 MG Take 1 (one) tablet by mouth 2 (two) times a day As needed for constipation . TRAZODONE (DESYREL) 50 MG TABLET Take 0.5 (one-half) tablet (25 mg total) by mouth nightly . ZOLPIDEM (AMBIEN) 10 MG TABLET Take 1 (one) tablet (10 mg total) by mouth nightly . Modified Medications No medications on file Discontinued Medications No medications on file Review of Systems : The following system(s) were reviewed (more content not included)...[facility]05-15-2024 History of Present illness Narrative* Hayden Balderas DO - 11/11/2023 4:06 PM EDT Hematology and Oncology Consult Note Patient Name: Dipti Sierra : 1945 Physicians: Dayami Roe MD (Family); No ref. provider found (Referring) History of present illness Dipti Sierra is a 78 y.o. y/o male with c/o evaluation of metastatic ca of colon Oncologic history This 78 yo presented on oxygen therapy 2liter flow with recent resection of colon cancer and + liver bx for metastatic disease Past Medical, Surgical, Family, and Social History: Past Medical History: Diagnosis Date Diabetes mellitus (HCC) Hyperlipidemia Hypertension Sleep apnea has a CPAP Past Surgical History: Procedure Laterality Date ANKLE ARTHROSCOPY W/ OPEN REPAIR Left 1967 APPENDECTOMY 1961 CARDIAC CATHETERIZATION N/A 02/10/2022 Procedure: Left Heart Cath Possbile PTCA/Stent; Surgeon: Baljinder Banegas MD; Location: [facility]; Service: Cardiovascular CARDIAC CATHETERIZATION N/A 02/10/2022 Procedure: Coronary Angiogram; Surgeon: Baljinder Banegas MD; Location: [facility]; Service: Cardiovascular CARDIAC CATHETERIZATION N/A 02/10/2022 Procedure: Instant Wave Free Ratio; Surgeon: Baljinder Banegas MD; Location: [facility]; Service: Cardiovascular CARDIAC CATHETERIZATION N/A 02/10/2022 Procedure: Fractional Flow Ruffin; Surgeon: Baljinder Banegas MD; Location: [facility]; Service: Cardiovascular COLONOSCOPY N/A 10/20/2023 Procedure: COLONOSCOPY with biopsy; Surgeon: Joe Rojas MD; Location: [facility]; Service: Gastroenterology CT COLONOSCOPY 03/01/[address] COLONOSCOPY 07/16/2018 CT COLONOSCOPY EGD N/A 10/20/2023 Procedure: ESOPHAGOGASTRODUODENOSCOPY; Surgeon: Joe Rojas MD; Location: Endo; Service: Gastroenterology INSERTION SUBCUTANEOUS PORT N/A 10/21/2023 Procedure: INSERTION SUBCUTANEOUS PORT; Surgeon: Austen Hall MD; Location: [facility]; Service: [employer] KNEE ARTHROPLASTY Right 1999 MT LAPS COLECTOMY PRTL W/RMVL TERMINAL ILEUM Right 10/21/2023 Procedure: COLECTOMY RIGHT ROBOTIC XI AND SMALL BOWEL RESECTION WITH LYMPH NODE DISSECTION AND LIVER BIOPSY; Surgeon: Austen Hall MD; Location: [facility]; Service: [employer] Family History Problem Relation Age of Onset Heart attack Mother Social History Socioeconomic History Marital status: Tobacco Use Smoking status: Never Smokeless tobacco: Never Vaping Use Vaping Use: Never used Substance and Sexual Activity Alcohol use: Never Drug use: Never Sexual activity: Not Currently Social Determinants of Health Food Insecurity: No Food Insecurity (10/19/2023) Hunger Vital Sign Worried About Running Out of Food in the Last Year: Never true Ran Out of Food in the Last Year: Never true Transportation Needs: No Transportation Needs (10/19/2023) PRAPARE - Transportation Lack of Transportation (Medical): No Lack of Transportation (Non-Medical): No Housing Stability: Low Risk (10/19/2023) Housing Stability Vital Sign Unable to Pay for Housing in the Last Year: No Number of Places Lived in the Last Year: 1 Unstable Housing in the Last Year: No Other HX: Allergies and Medications: : I have reviewed the patient's allergies. Lisinopril and Metformin Home Medications: Patient's Medications New Prescriptions No medications on file Previous Medications ACETAMINOPHEN (TYLENOL) 500 MG TABLET Take 1 (one) tablet (500 mg total) by mouth as needed for pain . ASPIRIN 81 MG EC TABLET Take 1 (one) tablet (81 mg total) by mouth every morning . ASPIRIN-CAFFEINE (KIA BACK AND BODY) 500-32.5 MG TAB Take 1 tablet by mouth as needed . AZELASTINE (ASTELIN) 137 MCG (0.1 %) NASAL SPRAY 2 (two) sprays by Each Nare route 2 (two) times a day . GLIMEPIRIDE (AMARYL) 4 MG TABLET Take 1 Unspecified by mouth daily . HYDROCHLOROTHIAZIDE 12.5 MG TABLET Take 1 (one) tablet (12.5 mg total) by mouth daily Start: 10/30/23. NALOXONE (NARCAN) 4 MG/ACTUATION SPRY Administer 1 spray into one nostril for known or suspected opioid overdose. If patient worsens or does not respond, may repeat in 2-3 minutes. . OMEPRAZOLE (PRILOSEC) 40 MG CAPSULE Take 1 (one) capsule (40 mg total) by mouth daily with dinner . PIOGLITAZONE (ACTOS) 30 MG TABLET Take 1 (one) tablet (30 mg total) by mouth every morning . POTASSIUM CHLORIDE 10 MEQ CR TABLET Take 1 Unspecified by mouth . ROSUVASTATIN (CRESTOR) 10 MG TABLET Take 1 (one) tablet (10 mg total) by mouth every morning . SENNA-DOCUSATE (SENNA-S) 8.6-50 MG Take 1 (one) tablet by mouth 2 (two) times a day As needed for constipation . TRAZODONE (DESYREL) 50 MG TABLET Take 0.5 (one-half) tablet (25 mg total) by mouth nightly . ZOLPIDEM (AMBIEN) 10 MG TABLET Take 1 (one) tablet (10 mg total) by mouth nightly . Modified Medications No medications on file Discontinued Medications No medications on file Review of Systems : The following system(s) were reviewed and pertinent findings noted: PSH: hemicolectomy September 2023,liver bx, pinning of right knee Resp: exertional dyspnea with SOB, on oxygen therapy 2l/m stop: only has nocturia once nightly. CV no hx of DC GI: black tarry stools for some time had Hb of 6.5 was admitted and underwent endoscopy then bowel surgery and liver bx In 2018 had colonoscopy that was negative Fam Hx: sister had breast cancer and at age 53. Physical Exam: Alert obese cau male with oxygen on at this time poor respiratory expansion of chest wall but lung farfan were CTA Heart RRR abd was distended with 4 incisions from robotic hemicolectomy healing is good. DTR's diminished Laboratory and Additional Data Reviewed: Laboratory 11/11/23 4:06 PM Microbiology 11/11/23 4:06 PM Pathology 11/11/23 4:06 PM Radiology 11/11/23 4:06 PM Cardiology 11/11/23 4:06 PM Medications 11/11/23 4:06 PM Transcriptions 11/11/23 4:06 PM No results for input(s): WBC, HGB, PLT in the last 72 hours. No results for input(s): NA, K, CL, BICARB, BUN, CREATININE, GLUCOSE, PHOS, MG, DREW, CALCIUM, BILITOT, ALKPHOS, ALT, AST, PROT, ALBUMIN in the last 72 hours. Invalid input(s): ALB No results for input(s): INR, PTT in the last 72 hours. 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 Patient presented with iron deficiency anemia, found to have a large right colon/cecal mass with multiple liver and lung lesions. Biopsy proven adenocarcinoma with liver metastasis. Doing well without major issues. Tolerating diet, pain free, bowels working, reports stools are soft but formed. Incisions C/D/I, all indio removed. Port site looks good. Abdomen soft, NTND From a surgical standpoint I think he may begin chemotherapy when deemed appropriate from the oncologist. I would recommend not beginning Avastin for an additional 3 weeks. Follow up prn Final Diagnosis COLON: ADENOCARCINOMA Procedure: Right hemicolectomy Macroscopic evaluation of mesorectum (for rectal cancer): Not applicable Tumor site: Cecum Histologic type: Adenocarcinoma Histologic grade: G2: Moderately differentiated Tumor size: 10 cm Multiple primary sites: Not applicable (no additional primary sites present) Tumor extent: Directly invades or adheres to adjacent structure(s): Small bowel Submucosal Invasion (for pT1 tumors only) Not applicable (not a pT1 tumor) Macroscopic tumor perforation: Not identified Lymphatic and/or vascular invasion: Not identified Perineural invasion: Not identified Tumor budding score: High (10 or more) Treatment effect: No known presurgical therapy Margins: Margin status for invasive carcinoma: All margins negative for invasive carcinoma Margin status for non-invasive tumor: All margins negative for high-grade dysplasia / intramucosal carcinoma and low-grade dysplasia Regional lymph nodes: Regional lymph node status: Tumor present in regional lymph node(s) Number of lymph nodes with tumor: 2 Number of lymph nodes examined: 31 Tumor deposits: Present (count = 1) Distant site(s) involved: Liver AJCC 8th edition pathologic stage: Modified Classification: Not applicable pT4b pN1b pM1a MMR Studies (performed on current case) MLH1: Intact protein expression. MSH2: Intact protein expression. MSH6: Intact protein expression. PMS2: Intact protein expression. A. Liver, biopsy: Adenocarcinoma, morphologically consistent with metastatic colonic primary. B. Colon, right hemicolectomy: Invasive moderately differentiated adenocarcinoma. See synoptic report. AUTHENTICATED BY AUSTEN HALL, ON 11/09/2023 10:52:31[facility]05-13-2024 History of Present illness Narrative* Austen Hall MD - 11/09/2023 10:37 AM EDT Patient presents for follow up s/p robotic right hemicolectomy, small bowel resection, liver biopsyand port placement on 10/20. Patient presented with iron deficiency anemia, found to have a large right colon/cecal mass with multiple liver and lung lesions. Biopsy proven adenocarcinoma with liver metastasis. Doing well without major issues. Tolerating diet, pain free, bowels working, reports stools are soft but formed. Incisions C/D/I, all indio removed. Port site looks good. Abdomen soft, NTND From a surgical standpoint I think he may begin chemotherapy when deemed appropriate from the oncologist. I would recommend not beginning Avastin for an additional 3 weeks. Follow up prn Final Diagnosis COLON: ADENOCARCINOMA Procedure: Right hemicolectomy Macroscopic evaluation of mesorectum (for rectal cancer): Not applicable Tumor site: Cecum Histologic type: Adenocarcinoma Histologic grade: G2: Moderately differentiated Tumor size: 10 cm Multiple primary sites: Not applicable (no additional primary sites present) Tumor extent: Directly invades or adheres to adjacent structure(s): Small bowel Submucosal Invasion (for pT1 tumors only) Not applicable (not a pT1 tumor) Macroscopic tumor perforation: Not identified Lymphatic and/or vascular invasion: Not identified Perineural invasion: Not identified Tumor budding score: High (10 or more) Treatment effect: No known presurgical therapy Margins: Margin status for invasive carcinoma: All margins negative for invasive carcinoma Margin status for non-invasive tumor: All margins negative for high-grade dysplasia / intramucosal carcinoma and low-grade dysplasia Regional lymph nodes: Regional lymph node status: Tumor present in regional lymph node(s) Number of lymph nodes with tumor: 2 Number of lymph nodes examined: 31 Tumor deposits: Present (count = 1) Distant site(s) involved: Liver AJCC 8th edition pathologic stage: Modified Classification: Not applicable pT4b pN1b pM1a MMR Studies (performed on current case) MLH1: Intact protein expression. MSH2: Intact protein expression. MSH6: Intact protein expression. PMS2: Intact protein expression. A. Liver, biopsy: Adenocarcinoma, morphologically consistent with metastatic colonic primary. B. Colon, right hemicolectomy: Invasive moderately differentiated adenocarcinoma. See synoptic report. documented in this [id number] History of Present illness Narrative* Candy Bright LISW - 10/29/2023 2:21 PM EDT Care Management Progress Note Date: 10/29/2023 Time: 2:21 PM Patient Name: Dipti Sierra Date of : 1945 Discharge Plan: Regulatory Documentation: Medicare IM Regulatory Documentation Status: Certified Plan A: Home Patient Paper Copy: Patient received paper copy Discharging Transportation Plan: Discharge Plan Status: Patient is expected to discharge today. Plans remains in place for patient to return home with spouse. Patient denied need for any home health or continued therapy at discharge. 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 Tolerating diet. Having bowel function. - ok to discharge from surgical standpoint - f/u with Dr. Hall next week for staple removal. INCIDENTAL FINDINGS: RESOLVED PROBLEMS: SURGERIES/PROCEDURES: Date Operation/Procedure Provider Name 10/21/2023 Robotic right hemicolectomy with central mesenteric lymph node dissection. Robotic small bowel resection. Robotic segment 5 liver wedge resection. Left-sided subclavian [id number]-[id number] placement with fluoroscopic guidance Dr. Hall TODAY'S ASSESSMENT AND PLAN OF CARE: See above DISPOSITION - per primary CHIEF COMPLAINT/ HPI / PFSHx / EVENTS OVER LAST 24HRS: Up in chair. Tolerating diet. No nausea or vomiting. Having bowel movements. REVIEW OF SYSTEMS: Other than the above items the remainder of the complete ROS is otherwise unchanged from admission. PHYSICAL EXAM: Temp: [97.8 F (36.6 C)-99 F (37.2 C)] 97.8 F (36.6 C) Heart Rate: [78-87] 87 Resp: [18-22] 18 BP: (119-150)/(65-72) 150/70 GENERAL: Appears age appropriate. NEUROLOGICAL: Alert and oriented X 3. No focal neurologic deficits noted. CARDIOVASCULAR: Regular rate and rhythm. 2+ pulses radial/DP/PT bilaterally. RESPIRATORY: Respiratory effort unlabored without use of accessory muscles. On nasal cannula. ABDOMINAL: Rounded, soft, mildly TTP. Incisions well approximated with indio. GENITOURINARY: Normal genitalia for age without lesion or trauma. MUSCULOSKELETAL: Extremities atraumatic without gross deformity x4. SKIN: Skin warm and dry. No intake or output data in the 24 hours ending 10/29/23 0941 IMAGING: No new imaging. LABS Lab Results Component Value Date WBC 4.64 10/29/2023 HGB 8.6 (L) 10/29/2023 HCT 31.5 (L) 10/29/2023 MCV 78.6 (L) 10/29/2023 EXTMCV 89.1 08/20/2017 PLT 300 10/29/2023 RBC 4.01 (L) 10/29/2023 Lab Results Component Value Date GLUCOSE 171 (H) 10/29/2023 CALCIUM 8.5 10/29/2023 NA 138 10/29/2023 K 3.5 10/29/2023 CL 97 (L) 10/29/2023 BUN 13 10/29/2023 CREATININE 0.98 10/29/2023 Lab Results Component Value Date ALT 8 10/20/2023 AST 22 10/20/2023 ALKPHOS 80 10/20/2023 BILITOT 0.7 10/20/2023 DAILY CHECKLIST: *Need for Restraints: na *Need for Urinary Catheter: na *Need for Central Access Devices: port *Stress Ulcer Prophylaxis: protonix *VTE Prophylaxis (Body mass index is 36.02 kg/m ., Estimated Creatinine Clearance: 60 mL/min (by C-G formula based on SCr of 0.98 mg/dL).): lovenox 40 mg daily *Home Medications Reconciled: per primary *Code Status: full code * Daria Herndon PTA - 10/29/2023 8:13 AM EDT Physical Therapy PHYSICAL THERAPY TREATMENT NOTE Skilled Therapy Needs After Discharge Anticipate Resolution of Current Assessment Limitations Including: Pain, Mechanical Barriers, Social Support Are Skilled Therapy Services Needed After Discharge: Yes Intensity of Skilled Therapy: 2-3 days per week DME Recommendation: Wheeled Walker (may not need by discharge, owns) DME Rationale: Patient's condition creates an increased risk of safety hazard without recommended equipment Rehab Potential: Good Outcomes Measures Prior Function - Basic Mobility Raw Score: 24 Points Prior Function - Basic Mobility % Impaired: 0% AM-PAC Basic Mobility Raw Score: 18 Points AM-PAC Basic Mobility % Impaired: 40.47% Activity Tolerance Activity Tolerance: Tolerates 20 - 30 min activity with multiple rests Therapy Precautions Orthotic Devices: No Weight Bearing Status: WFL General Rehab Precautions: Fall risk, Abdominal Balance Sitting Balance - Static: Modified independent Sitting Balance - Dynamic: Modified independent Standing Balance - Static: Stand by assist Mechanical Shop Laborer - Standing Static: wheeled walker Loss of Balance- Standing Static: (none) Standing Balance - Dynamic: Stand by assist, Contact guard assist Mechanical Shop Laborer - Standing Dynamic: wheeled walker Loss of Balance- Standing Dynamic: (none) Transfers Sit to Stand: Stand by assist Mechanical Shop Laborer: wheeled walker, BUE Skilled Intervention Provided: verbal cues, environmental setup/modification, patient education, monitoring patient response with activity For: controlled descent, efficient movement, safety during functional tasks, self-monitoring duringactivity Resulting in: improved activity tolerance, improved functional independence, improved safety, improved performance, increased upright tolerance for functional tasks, decreased assistance required Gait/Locomotion Gait Assistance: Stand by assist Assistive Device: wheeled walker Distance: 300 Feet (lap around unit; SpO2 89% and above) Pattern: step through, L decreased step length, R decreased step length, over reliance on upper extremities, decreased candace (steps per minute) Weight Bearing Status: able to maintain Gait Loss(es) of Balance: (none with ww) Environment/Terrain: open/community environment, multiple distractions Stair Management Technique: (Pt declined need for stair training, as training was done earlier thisweek) Skilled Intervention Provided: verbal cues, environmental setup/modification, monitoring patient response with activity, patient education For: breathing techniques, efficient movement, pathfinding, self-monitoring during activity, stairssequence/technique Resulting in: improved activity tolerance, improved functional independence, improved performance, improved safety, increased upright tolerance for functional tasks, decreased assistance required Additional Treatment Details Pt with increased activity juanita this date on 4L O2. Pt able to amb one lap around unit with no rest breaks. SpO2 89% and above throughout amb. Pt with no further concerns or questions regarding therapy at this time. Pt educated on continued use of ww for safety upon return home. Pt understands abdominal precautions. Pt up in chair post tx with all needs met and call light in reach. Home Living Obtained Home Living and PLOF info from: Patient Lives With: Spouse, Son (They can assist at home after discharge.) Type of Home: House Home Layout: One level Steps to enter home: Yes Rails to enter home: (Grab bar present to assist self at top step.) Number of stairs to enter home: 3 Bathroom Shower/Tub: Walk-in shower, Main level Bathroom Toilet: Standard, Main level Bathroom Equipment: Grab bars in shower, Shower chair, Bulit-in shower seat Bathroom Accessibility: Accessible via walker Mobility Equipment: Standard walker Additional Objective Details - Home Living: Pt can be called [place]. Prior Level of Function Level of [place] - Transfers/Ambulation/Mobility: Independent with functional transfers, Independent with household ambulation, Independent with community ambulation (No AD for ambulation at home SIGHT MOUNTER.) Level of [place] - ADLs: Independent Level of [place] - Homemaking: (Spouse completed cooking and laundry tasks.) Driving: Patient drives Vocational: Retired For complete objective data, detailed plan of care and patient education refer to: PT Evaluation flowsheet, PT Evaluation and Treatment flowsheet, PT Treatment flowsheet, patient Plan of Care, Plan of Care progress note, and Patient Education. This note stands as the current Discharge Summary upon patient discharge from the hospital or completion of Physical Therapy Plan of Care. * Candy Bright LISW - 10/28/2023 1:21 PM EDT Care Management Progress Note Date: 10/28/2023 Time: 1:21 PM Patient Name: Dipti Sierra Date of : 1945 Discharge Plan: Regulatory Documentation: Medicare IM Regulatory Documentation Status: Certified Plan A: Home Patient Paper Copy: Patient received paper copy Discharging Transportation Plan: Discharge Plan Status: Patient reviewed with Dr. Franco. No new needs identified. Plan remains in place for patient to return home with spouse. Assessment and Background Information: * Daria Herndon PTA - 10/28/2023 9:30 AM EDT Physical Therapy PHYSICAL THERAPY TREATMENT NOTE Skilled Therapy Needs After Discharge Anticipate Resolution of Current Assessment Limitations Including: Pain, Mechanical Barriers, Social Support Are Skilled Therapy Services Needed After Discharge: Yes Intensity of Skilled Therapy: 2-3 days per week DME Recommendation: Wheeled Walker (may not need by discharge, owns) DME Rationale: Patient's condition creates an increased risk of safety hazard without recommended equipment Rehab Potential: Good Outcomes Measures Prior Function - Basic Mobility Raw Score: 24 Points Prior Function - Basic Mobility % Impaired: 0% AM-PAC Basic Mobility Raw Score: 18 Points AM-PAC Basic Mobility % Impaired: 40.47% Activity Tolerance Activity Tolerance: Tolerates 20 - 30 min activity with multiple rests Therapy Precautions Orthotic Devices: No Weight Bearing Status: WFL General Rehab Precautions: Fall risk, Abdominal Balance Sitting Balance - Static: Modified independent Sitting Balance - Dynamic: Modified independent Standing Balance - Static: Stand by assist Mechanical Shop Laborer - Standing Static: wheeled walker Loss of Balance- Standing Static: (none) Standing Balance - Dynamic: Stand by assist, Contact guard assist Mechanical Shop Laborer - Standing Dynamic: wheeled walker Loss of Balance- Standing Dynamic: (none) Transfers Sit to Stand: Contact guard assist Mechanical Shop Laborer: wheeled walker, BUE Additional Transfer Trial 2: Yes Sit to Stand Trial 2: Stand by assist Mechanical Shop Laborer Trial 2: wheeled walker, BUE Skilled Intervention Provided: verbal cues, environmental setup/modification, monitoring patient response with activity For: controlled descent, energy conservation, efficient movement, safety during functional tasks, self-monitoring during activity Resulting in: improved activity tolerance, improved functional independence, improved performance, improved safety, increased upright tolerance for functional tasks, decreased assistance required Gait/Locomotion Gait Assistance: Contact guard assist, Stand by assist Assistive Device: wheeled walker Distance: 70 Feet (SpO2 92% after amb) Rest Breaks: Yes Rest Break Position: seated Additional Gait Trial 2: Yes Gait Assistance Trial 2: Stand by assist, Contact guard assist Assistive Device Trial 2: wheeled walker Distance Trial 2: 30 Pattern: step through, R decreased step length, L decreased step length, over reliance on upper extremities, decreased candace (steps per minute) Weight Bearing Status: able to maintain Gait Loss(es) of Balance: (none with ww) Environment/Terrain: open/community environment, multiple distractions Skilled Intervention Provided: verbal cues, environmental setup/modification, monitoring patient response with activity, provided step by step instructions, patient education For: breathing techniques, device management and safe use of device, fall prevention, pathfinding, self-monitoring during activity Resulting in: improved activity tolerance, improved functional independence, improved performance, improved safety, increased upright tolerance for functional tasks Exercise Seated Exercises: Pt performs miguel LE ap, LAQ and hip abd x 15 each to improve m. strength and endurance (Seated/supine HEP handout provided and explained) Skilled Intervention Provided: verbal cues, visual cues, demonstration, instruction on proper technique/alignment, patient education, written instructions/handout provided and reviewed For: achieving full ROM as tolerated, hold duration, muscle activation, number of repetitions, necessary precautions Resulting in: improved activity tolerance, improved functional strength/ROM, improved independence with HEP, improved performance Additional Treatment Details Pt with increased activity juanita this date. Pt on 4L O2 this date. SpO2 92% immediately after amb. Ptgiven seated/supine HEP for LE strengthening, ex adhering to abdominal precautions. Pt up in recliner post tx with all needs met and call light in reach. Access Code: [email or web address] URL: [email or web address] Date: 10/28/2023 Prepared by: Daria Box Exercises - Seated Heel Toe Raises - 1 x daily -7 x weekly - 1 sets - 20 reps - 5 hold - Seated Long Arc Quad (Mirrored) - 1 x daily - 7 x weekly -1 sets - 20 reps - 5 hold - Seated Hip Abduction - 1 x daily - 7 x weekly - 1 sets - 20 reps - 5 hold - Supine Ankle Pumps - 1 x daily - 7 x weekly - 3 sets - 10 reps - Supine Quad Set - 1 x daily - 7 x weekly - 3 sets - 10 reps - Supine Short Arc Quad - 1 x daily - 7 x weekly - 3 sets - 10 reps Home Living Obtained Home Living and PLOF info from: Patient Lives With: Spouse, Son (They can assist at home after discharge.) Type of Home: House Home Layout: One level Steps to enter home: Yes Rails to enter home: (Grab bar present to assist self at top step.) Number of stairs to enter home: 3 Bathroom Shower/Tub: Walk-in shower, Main level Bathroom Toilet: Standard, Main level Bathroom Equipment: Grab bars in shower, Shower chair, Bulit-in shower seat Bathroom Accessibility: Accessible via walker Mobility Equipment: Standard walker Additional Objective Details - Home Living: Pt can be called [place]. Prior Level of Function Level of [place] - Transfers/Ambulation/Mobility: Independent with functional transfers, Independent with household ambulation, Independent with community ambulation (No AD for ambulation at home SIGHT MOUNTER.) Level of [place] - ADLs: Independent Level of [place] - Homemaking: (Spouse completed cooking and laundry tasks.) Driving: Patient drives Vocational: Retired For complete objective data, detailed plan of care and patient education refer to: PT Evaluation flowsheet, PT Evaluation and Treatment flowsheet, PT Treatment flowsheet, patient Plan of Care, Plan of Care progress note, and Patient Education. This note stands as the current Discharge Summary upon patient discharge from the hospital or completion of Physical Therapy Plan of Care. 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 Oncology following. Afebrile. WBC 5.2 Tolerating cld, passing flatus and having bowel movements Pain improving - adv to reg diet - continue ambulation, pulm hygiene INCIDENTAL FINDINGS: RESOLVED PROBLEMS: SURGERIES/PROCEDURES: Date Operation/Procedure Provider Name 10/21/2023 Robotic right hemicolectomy with central mesenteric lymph node dissection. Robotic small bowel resection. Robotic segment 5 liver wedge resection. Left-sided subclavian Zeeahm-V-Vulp placement with fluoroscopic guidance Dr. Hall TODAY'S ASSESSMENT AND PLAN OF CARE: See above DISPOSITION - TBD CHIEF COMPLAINT/ HPI / PFSHx / EVENTS OVER LAST 24HRS: Up to chair. Reports overall improvement to distension and abdominal pain. REVIEW OF SYSTEMS: Other than the above items the remainder of the complete ROS is otherwise unchanged from admission. PHYSICAL EXAM: Temp: [97.7 F (36.5 C)-98.7 F (37.1 C)] 97.8 F (36.6 C) Heart Rate: [83-94] 88 Resp: [16-20] 18 BP: (125-153)/(67-77) 134/70 GENERAL: Appears age appropriate. NEUROLOGICAL: Alert and oriented X 3. No focal neurologic deficits noted. Head Eyes Ear Nose Throat: Head: Atraumatic, normocephalic. CARDIOVASCULAR: Regular rate and rhythm. 2+ pulses radial/DP/PT bilaterally. RESPIRATORY: Respiratory effort unlabored without use of accessory muscles. On nasal cannula. ABDOMINAL: Rounded, distended, mildly TTP. Incisions well approximated. GENITOURINARY: Normal genitalia for age without lesion or trauma. MUSCULOSKELETAL: Extremities atraumatic without gross deformity x4. SKIN: Skin warm and dry. Intake/Output Summary (Last 24 hours) at 10/28/2023 0922 Last data filed at 10/28/2023 0800 Gross per 24 hour Intake 990 ml Output 475 ml Net 515 ml IMAGING: No new imaging. LABS Lab Results Component Value Date WBC 5.21 10/28/2023 HGB 7.7 (L) 10/28/2023 HCT 28.5 (L) 10/28/2023 MCV 78.9 (L) 10/28/2023 EXTMCV 89.1 08/20/2017 PLT 293 10/28/2023 RBC 3.61 (L) 10/28/2023 Lab Results Component Value Date GLUCOSE 169 (H) 10/28/2023 CALCIUM 8.6 10/28/2023 NA 135 10/28/2023 K 3.9 10/28/2023 CL 93 (L) 10/28/2023 BUN 14 10/28/2023 CREATININE 0.98 10/28/2023 Lab Results Component Value Date ALT 8 10/20/2023 AST 22 10/20/2023 ALKPHOS 80 10/20/2023 BILITOT 0.7 10/20/2023 DAILY CHECKLIST: *Need for Restraints: na *Need for Urinary Catheter: na *Need for Central Access Devices: port *Stress Ulcer Prophylaxis: protonix *VTE Prophylaxis (Body mass index is 36.02 kg/m ., Estimated Creatinine Clearance: 60 mL/min (by C-G formula based on SCr of 0.98 mg/dL).): lovenox 40 mg daily *Home Medications Reconciled: per primary *Code Status: full code Associated attestation - Austen Hall MD - 10/28/2023 1:36 PM EDT Patient seen and examined agree with below. Doing well no new issues. Has tolerated diet without problems, bowels continue to work and no nausea. AFVS Labs reviewed Abdomen soft, less distended, ATTP Incisions CDI - advance diet - dc reglan - okay to dc home if patient tolerates regular/diabetic diet from surgical standpoint. Patient should follow up with me in one week for staple removal * Arias Franco DO - 10/28/2023 9:[address] [facility] [place] PROGRESS NOTE Assessment and Plan Dipti Sierra is a 77 y.o. male patient of Dayami Roe MD with history of DM, HLD, HTNand sleep apnea presents to ED with fatigue and shortness of breath found to have hemoglobin of 5.5down from 11.9 in . Colon cancer with Multiple metastatic lesions S/p right hemicolectomy on 10/21/23 Colonoscopy with large cecal mass CT chest abdomen and pelvis with no PE, 6.7 cm cecal mass, mesenteric lymph nodes, multiple metastases to liver, mediastinal and hilar lymph nodes, likely pulmonary edema Biopsies taken of cecal mass GS rec removal of mass and port placement Rt hemicolectomy w/LN dissection, robotic small bowel resection due to involved small bowel, segment 5 liver resection and port placed done on 10/20 Pain poorly controlled on 10/22 Discontinued Dilaudid IV, changed to oxycodone pain intermittent order set 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 thereafter Had 2 large bowel movements on 10/26 a.m. Tolerating liquids now, will be advanced to regular diet per surgery 10/27 Continue Reglan and will scale back bowel regimen Possibly can discharge on 10/28 Encouraged ambulation Acute on chronic anemia Iron deficiency anemia Hemoglobin 5.5 down from 9.2(01/2022) Patient currently getting 2 units of PRBC transfused Guaiac neg Ferritin low GI consulted, recommend colonoscopy and EGD Patient on Protonix IV 40 mg twice daily EGD on 10/19 with normal mucosa Colonoscopy on 10/19 with 6 cm mass in cecum-likely cause of bleeding Hgb remaining stable Acute respiratory failure with hypoxia Acute pulmonary edema, CHF ruled out Patient notes shortness of breath for 2 years BNP of 700-WNL for age Chest x-ray with multiple lung nodules, the largest of which was approximately 5 cm Likely secondary to multiple lung metastases as well as pulmonary edema S/P IV lasix x 2 doses Required HHF post-op IS, lasix 20mg q8 hours x 3 and monitor Added Hycodan, Mucinex, PEP Presently remaining stable on 3 L nasal cannula, wean as able Lactic acidosis Initial 3.1 trend with fluids to 1.1 Likely secondary to bleed Type 2 diabetes Patient takes Actos and Amaryl at home Continue Sliding scale while here BG high on 10/27, will give one time dose of Lantus 5u If still remaining high, may need to add consistent basal coverage Dyslipidemia Continue atorvastatin while here. Patient takes Crestor 10 mg daily at home Hypertension Blood pressure on the low normal side. Patient's home regimen includes lisinopril-hydrochlorothiazide, however it is mentioned that he hasa history of angioedema with lisinopril Start hydrochlorothiazide 12.5 mg alone on 10/26 BP now much better Consider adding losartan if needed BRYCE Gets cpap at night Continue while here Obesity Discharge Planning Medically Stable for Discharge Date: 10/28 Patient requires continued hospitalization due to: need to advance diet further now that ileus is resolving Discharge Location: Home, likely with [facility] Quality Measures DVT Prophylaxis: SCDs Pierce Catheter: absent Code Status full Primary Contact Information Subjective Patient reports significant improvement in symptoms today. Has actually had loose bowel movements. Per surgery, advancing diet and possibly going to discharge tomorrow Objective BP 134/70 Pulse 88 Temp 97.8 F (36.6 C) (Oral) Resp 18 Ht 5' 7 Wt 104.3 kg (230 lb) SpO2 94% BMI 36.02 kg/m Physical Examination General Appearance: alert; acute on chronically ill appearing; in no acute distress HEENT: Head- normocephalic; Eyes- EOMI, sclera anicteric; Throat- mucous membranes moist Cardiovascular: regular rate and rhythm; normal S1, S2; no murmurs, rubs, clicks or gallops; peripheral edema absent Respiratory: Diminished breath sounds bilaterally; on nasal cannula Abdomen: Protuberant, soft, nontender, moderately distended but improved from 10/25, wound dressing c/d/i Neurological: oriented x 3; normal speech; no focal findings or movement disorder noted Musculoskeletal: no significant deformity or tenderness to palpation Skin: normal coloration Psych: normal mood and affect * Wilfred Pretty CNP - 10/27/2023 12:24 PM EDT [facility] DAILY PROGRESS NOTE 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 Oncology following. Afebrile. WBC normal. Reports nausea has resolved, 2 large bowel movements overnight. No emesis. Tolerating sips. -Will discuss advancing diet. - continue reglan. Ambulate OOB. - pathology pending. INCIDENTAL FINDINGS: RESOLVED PROBLEMS: SURGERIES/PROCEDURES: Date Operation/Procedure Provider Name 10/21/2023 Robotic right hemicolectomy with central mesenteric lymph node dissection. Robotic small bowel resection. Robotic segment 5 liver wedge resection. Left-sided subclavian Npiuhf-I-Eolu placement with fluoroscopic guidance Dr. Hall TODAY'S ASSESSMENT AND PLAN OF CARE: See above DISPOSITION - TBD CHIEF COMPLAINT/ HPI / PFSHx / EVENTS OVER LAST 24HRS: Up to chair on my evaluation, reports pain is controlled. Reports 2 large bowel movements overnight. Family at bedside REVIEW OF SYSTEMS: Other than the above items the remainder of the complete ROS is otherwise unchanged from admission. PHYSICAL EXAM: Temp: [97.6 F (36.4 C)-98.7 F (37.1 C)] 97.7 F (36.5 C) Heart Rate: [83-107] 94 Resp: [14-18] 18 BP: (137-159)/(63-76) 153/75 GENERAL: Appears age appropriate. NEUROLOGICAL: Alert and oriented X 3. No focal neurologic deficits noted. Head Eyes Ear Nose Throat: Head: Atraumatic, normocephalic. CARDIOVASCULAR: Regular rate and rhythm. 2+ pulses radial/DP/PT bilaterally. RESPIRATORY: Respiratory effort unlabored without use of accessory muscles. On nasal cannula. ABDOMINAL: Rounded, distended, mildly TTP. Incisions well approximated with [place]. GENITOURINARY: Normal genitalia for age without lesion or trauma. MUSCULOSKELETAL: Extremities atraumatic without gross deformity x4. SKIN: Skin warm and dry. Intake/Output Summary (Last 24 hours) at 10/27/2023 1224 Last data filed at 10/27/2023 0300 Gross per 24 hour Intake -- Output 325 ml Net -325 ml IMAGING: No new imaging. LABS Lab Results Component Value Date WBC 8.63 10/27/2023 HGB 8.3 (L) 10/27/2023 HCT 30.7 (L) 10/27/2023 MCV 78.9 (L) 10/27/2023 EXTMCV 89.1 08/20/2017 PLT 305 10/27/2023 RBC 3.89 (L) 10/27/2023 Lab Results Component Value Date GLUCOSE 158 (H) 10/27/2023 CALCIUM 8.8 10/27/2023 NA 138 10/27/2023 K 4.1 10/27/2023 CL 94 (L) 10/27/2023 BUN 14 10/27/2023 CREATININE 0.89 10/27/2023 Lab Results Component Value Date ALT 8 10/20/2023 AST 22 10/20/2023 ALKPHOS 80 10/20/2023 BILITOT 0.7 10/20/2023 DAILY CHECKLIST: *Need for Restraints: na *Need for Urinary Catheter: na *Need for Central Access Devices: port *Stress Ulcer Prophylaxis: protonix *VTE Prophylaxis (Body mass index is 36.02 kg/m ., Estimated Creatinine Clearance: 66 mL/min (by C-G formula based on SCr of 0.89 mg/dL).): lovenox 40 mg daily *Home Medications Reconciled: per primary *Code Status: full code Associated attestation - Austen Hall MD - 10/27/2023 2:55 PM EDT Seen and examined agree with below. Doing well. Reports 3 good bowel movements now and resolution of nausea. Has tolerated clear liquids. Sore. AFVS Labs reviewed, HGB stable. Abdomen softer less distended, aTTP Incisions CDI - clear liquids today - if tolerating advance tomorrow - tentative DC date 10/28 from surgical standpoint * Daria Herndon PTA - 10/27/2023 8:25 AM EDT Physical Therapy PHYSICAL THERAPY TREATMENT NOTE Skilled Therapy Needs After Discharge Anticipate Resolution of Current Assessment Limitations Including: Pain, Mechanical Barriers, Social Support Are Skilled Therapy Services Needed After Discharge: Yes Intensity of Skilled Therapy: 2-3 days per week DME Recommendation: Wheeled Walker (may not need by discharge, owns) DME Rationale: Patient's condition creates an increased risk of safety hazard without recommended equipment Rehab Potential: Good Outcomes Measures Prior Function - Basic Mobility Raw Score: 24 Points Prior Function - Basic Mobility % Impaired: 0% AM-PAC Basic Mobility Raw Score: 18 Points AM-PAC Basic Mobility % Impaired: 40.47% Activity Tolerance Activity Tolerance: Tolerates 20 - 30 min activity with multiple rests Therapy Precautions Orthotic Devices: No Weight Bearing Status: WFL General Rehab Precautions: Fall risk, Abdominal Balance Sitting Balance - Static: Modified independent Sitting Balance - Dynamic: Modified independent Standing Balance - Static: Stand by assist Mechanical Shop Laborer - Standing Static: wheeled walker Loss of Balance- Standing Static: (none with ww) Standing Balance - Dynamic: Contact guard assist, Stand by assist, with device Mechanical Shop Laborer - Standing Dynamic: wheeled walker Loss of Balance- Standing Dynamic: intermittent Transfers Sit to Stand: Stand by assist Mechanical Shop Laborer: wheeled walker, BUE Additional Transfer Trial 2: Yes Sit to Stand Trial 2: Stand by assist Mechanical Shop Laborer Trial 2: wheeled walker, BUE Additional Transfer Trial 3: Yes Sit to Stand Trial 3: Stand by assist Mechanical Shop Laborer Trial 3: wheeled walker, BUE Skilled Intervention Provided: verbal cues, environmental setup/modification, provided step by stepinstructions, patient education, monitoring patient response with activity For: energy conservation, efficient movement, breathing techniques, safety during functional tasks,safe use of AD and/or equipment, sequencing of movement, self-monitoring during activity Resulting in: improved functional independence, improved performance, improved safety, increased upright tolerance for functional tasks, decreased assistance required Gait/Locomotion Gait Assistance: Contact guard assist, Stand by assist Assistive Device: wheeled walker Distance: 30 Feet Rest Breaks: Yes Rest Break Position: standing (stair training performed during amb break) Additional Gait Trial 2: Yes Gait Assistance Trial 2: Contact guard assist, Stand by assist Assistive Device Trial 2: wheeled walker Distance Trial 2: 20 Rest Breaks Trial 2: Yes Rest Break Position Trial 2: seated Rest Break Duration Trial 2: 3-4mins (pt resting d/t feeling nauseous) Additional Gait Trial 3: Yes Gait Assistance Trial 3: Contact guard assist Assistive Device Trial 3: wheeled walker Distance Trial 3: 30 Pattern: step through, R decreased step length, L decreased step length, over reliance on upper extremities, forward flexed, decreased candace (steps per minute) Weight Bearing Status: able to maintain Gait Loss(es) of Balance: (none with ww) Environment/Terrain: open/community environment, multiple distractions Stair Management Technique: L rail up/R rail down, step-to pattern, forwards Stair Management Assistance: Contact guard assist Number of Stairs: 3 Skilled Intervention Provided: verbal cues, visual cues, environmental setup/modification, providedstep by step instructions, patient education, monitoring patient response with activity For: breathing techniques, device management and safe use of device, efficient movement, fall prevention, gait technique, pathfinding, self-monitoring during activity, stairs sequence/technique Resulting in: improved functional independence, improved performance, improved safety, increased upright tolerance for functional tasks Exercise Ankle Pumps: x20 miguel Skilled Intervention Provided: verbal cues, visual cues For: achieving full ROM as tolerated, number of repetitions Resulting in: improved activity tolerance, improved functional strength/ROM, improved performance Additional Treatment Details Pt on 4L O2 upon arrival. Pt SpO2 monitored throughout tx. Pt trials stairs this date for home going. Pt educated on safe sequence, technique, and use of HRs. Pt performs with CGA for safety. Pt seated after stairs to rest, SpO2 had dropped into low 80s. Zahira back up to 90 with 1 min of seated rest. While amb back to room, pt reports feeling nauseous. Pt given extended seated rest. Pt up in cahir post tx with all needs met, call light in reach. No alarm on pre tx. Nurses aware of pt status. Home Living Obtained Home Living and PLOF info from: Patient Lives With: Spouse, Son Type of Home: House Home Layout: One level Steps to enter home: Yes Rails to enter home: 1 rail Number of stairs to enter home: 3 Mobility Equipment: Wheeled walker Prior Level of Function Level of [place] - Transfers/Ambulation/Mobility: Independent with household ambulation, Independent with functional transfers, Independent with community ambulation (no AD) Level of [place] - ADLs: Independent Driving: Patient drives Vocational: Retired For complete objective data, detailed plan of care and patient education refer to: PT Evaluation flowsheet, PT Evaluation and Treatment flowsheet, PT Treatment flowsheet, patient Plan of Care, Plan of Care progress note, and Patient Education. This note stands as the current Discharge Summary upon patient discharge from the hospital or completion of Physical Therapy Plan of Care. * Arias Franco, DO - 10/27/2023 8:[address] [facility] [place] PROGRESS NOTE Assessment and Plan Dipti Sierra is a 77 y.o. male patient of Dayami Roe MD with history of DM, HLD, HTNand sleep apnea presents to ED with fatigue and shortness of breath found to have hemoglobin of 5.5down from 11.9 in . Colon cancer with Multiple metastatic lesions S/p right hemicolectomy on 10/21/23 Colonoscopy with large cecal mass CT chest abdomen and pelvis with no PE, 6.7 cm cecal mass, mesenteric lymph nodes, multiple metastases to liver, mediastinal and hilar lymph nodes, likely pulmonary edema Biopsies taken of cecal mass GS rec removal of mass and port placement Rt hemicolectomy w/LN dissection, robotic small bowel resection due to involved small bowel, segment 5 liver resection and port placed done on 10/20 Pain poorly controlled on 10/22 Discontinued Dilaudid IV, changed to oxycodone pain intermittent order set 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 thereafter Had 2 large bowel movements on 10/26 a.m. Likely will advance diet per surgery Continue Reglan and bowel regimen Encouraged ambulation Acute on chronic anemia Iron deficiency anemia Hemoglobin 5.5 down from 9.2(01/2022) Patient currently getting 2 units of PRBC transfused Guaiac neg Ferritin low GI consulted, recommend colonoscopy and EGD Patient on Protonix IV 40 mg twice daily EGD on 10/19 with normal mucosa Colonoscopy on 10/19 with 6 cm mass in cecum-likely cause of bleeding Hgb remaining stable Acute respiratory failure with hypoxia Acute pulmonary edema, CHF ruled out Patient notes shortness of breath for 2 years BNP of 700-WNL for age Chest x-ray with multiple lung nodules, the largest of which was approximately 5 cm Likely secondary to multiple lung metastases as well as pulmonary edema S/P IV lasix x 2 doses Required HHF post-op IS, lasix 20mg q8 hours x 3 and monitor Added Hycodan, Mucinex, PEP Presently remaining stable on 3 L nasal cannula, wean as able Lactic acidosis Initial 3.1 trend with fluids to 1.1 Likely secondary to bleed Type 2 diabetes Patient takes Actos and Amaryl at home Continue Sliding scale while here Dyslipidemia Continue atorvastatin while here. Patient takes Crestor 10 mg daily at home Hypertension Blood pressure on the low normal side. Patient's home regimen includes lisinopril-hydrochlorothiazide, however it is mentioned that he hasa history of angioedema with lisinopril Start hydrochlorothiazide 12.5 mg alone on 10/26 Consider adding losartan if needed BRYCE Gets cpap at night Continue while here Obesity Discharge Planning Medically Stable for Discharge Date: 10/26 Patient requires continued hospitalization due to: Possibly advancing diet but need to evaluate forileus Discharge Location: Home Quality Measures DVT Prophylaxis: SCDs Pierce Catheter: absent Code Status full Primary Contact Information Subjective Patient reports significant improvement in symptoms today. He had 2 large bowel movements overnight. Otherwise denies any issues presently. Objective BP (!) 150/75 Pulse (!) 107 Temp 97.6 F (36.4 C) (Oral) Resp 16 Ht 5' 7 Wt 104.3 kg (230lb) SpO2 90% BMI 36.02 kg/m Physical Examination General Appearance: alert; acute on chronically ill appearing; in no acute distress HEENT: Head- normocephalic; Eyes- EOMI, sclera anicteric; Throat- mucous membranes moist Cardiovascular: regular rate and rhythm; normal S1, S2; no murmurs, rubs, clicks or gallops; peripheral edema absent Respiratory: Diminished breath sounds bilaterally; on nasal cannula Abdomen: Protuberant, soft, nontender, moderately distended but improved from 10/25, wound dressing c/d/i Neurological: oriented x 3; normal speech; no focal findings or movement disorder noted Musculoskeletal: no significant deformity or tenderness to palpation Skin: normal coloration Psych: normal mood and affect * Lencho Rodriguez MD - 10/26/2023 4:55 PM EDT Oncology Inpatient Follow-up 10/26/2023 Lencho Rodriguez MD [facility] Patient: Dipti Sierra Date of : 1945 (78 y.o.) PCP: Dayami Roe MD SUBJECTIVE: History Since Last Visit: Patient has developed an ileus since last visit p.o. intake is being heldwill wait till his ileus resolved no new pain. Final pathology returned shows adenocarcinoma of thecolon with liver mets Review of Systems: A Complete review of systems was performed and is negative except for what is listed in the HPI. OBJECTIVE: Physical Examination: BP (!) 159/76 Pulse 83 Temp 98.3 F (36.8 C) (Oral) Resp 14 Ht 5' 7 Wt 104.3 kg (230 lb) SpO2 95% BMI 36.02 kg/m ECOG Gen: NAD, resting comfortably HEENT: NCAT, no temporal wasting, anicteric sclerae, mmm, no op lesions Neck: supple, no thyromegaly or LAD Lymphatics: no cervical, axillary, or inguinal adenopathy Chest: CTAB, no w/r/r, no respiratory distress CV: RRR, no m/r/g, normal S1, S2 Abd: soft, nontender, nondistended, +BS Ext: wwp, no c/c/e Skin: no rashes or lesions Neuro: Alert and oriented x4, no focal deficits, moves all four extremities Psych: Mood normal. Laboratory and Additional Data Reviewed: Reviewed 10/26/23 4:55 PM: Laboratory Lab Results Component Value Date WBC 5.81 10/26/2023 HGB 8.1 (L) 10/26/2023 HCT 30.5 (L) 10/26/2023 MCV 79.2 (L) 10/26/2023 EXTMCV 89.1 08/20/2017 PLT 285 10/26/2023 RBC 3.85 (L) 10/26/2023 Lab Results Component Value Date GLUCOSE 176 (H) 10/26/2023 CALCIUM 8.8 10/26/2023 NA 137 10/26/2023 K 4.0 10/26/2023 CL 94 (L) 10/26/2023 BUN 10 10/26/2023 CREATININE 0.84 10/26/2023 Lab Results Component Value Date ALT 8 10/20/2023 AST 22 10/20/2023 ALKPHOS 80 10/20/2023 BILITOT 0.7 10/20/2023 ASSESSMENT/PLAN: Dipti Sierra 78 y.o. male with history of metastatic colorectal cancer presently has an ileus thatwill resolve soon would consider IV iron in the near future wait any chemotherapy for 3 to 4 weeks * Candy Bright LISW - 10/26/2023 2:03 PM EDT Care Management Progress Note Date: 10/26/2023 Time: 2:03 PM Patient Name: Dipti Sierra Date of : 1945 Discharge Plan: Regulatory Documentation: Medicare IM Regulatory Documentation Status: Certified Plan A: Home Patient Paper Copy: Patient received paper copy Discharging Transportation Plan: Discharge Plan Status: Patient reviewed with Dr. Franco. No new needs identified. Plan remains in place for patient to return home with spouse. Patient denied need for home health/continued therapy at discharge. Assessment and Background Information: * Sally Vallejo RD - 10/26/2023 11:00 AM EDT Nutrition Care Initial Assessment Reason for visit: Dietitian Screen: Length of Stay Nutrition Diagnosis: Inadequate oral intake r/t inability to consume sufficient energy PO aeb NPO diet status. Nutrition Intervention Initiate source of nutrition X 24 hours Nutrition Prescription: Diet:Continue NPO sips/ice chips Follow surgery for diet advancement. Add MVI as able. Nutrition Goals: Diet advancement within 24-72hrs Start Date:10/26/2023 Expected End Date:11/01/2023 Nutrition Education: Not appropriate due to clinical presentation Assessment: Pertinent clinical information: Stage 4 cecal cancer. S/P right hemicolectomy with central mesenteric lymph node dissection. S/P small bowel resection. S/P port placement. Considering chemotherapy in 1 month. Pathology of cecal mass is pending. Note, terminal ileum resected. May need to consider B12. Past Medical History: Diagnosis Date Diabetes mellitus (HCC) Hyperlipidemia Hypertension Sleep apnea has a CPAP Past Surgical History: Procedure Laterality Date ANKLE ARTHROSCOPY W/ OPEN REPAIR Left 1967 APPENDECTOMY 1961 CARDIAC CATHETERIZATION N/A 02/10/2022 Procedure: Left Heart Cath Possbile PTCA/Stent; Surgeon: Baljinder Banegas MD; Location: [facility]; Service: Cardiovascular CARDIAC CATHETERIZATION N/A 02/10/2022 Procedure: Coronary Angiogram; Surgeon: Baljinder Banegas MD; Location: [facility]; Service: Cardiovascular CARDIAC CATHETERIZATION N/A 02/10/2022 Procedure: Instant Wave Free Ratio; Surgeon: Baljinder Banegas MD; Location: [facility]; Service: Cardiovascular CARDIAC CATHETERIZATION N/A 02/10/2022 Procedure: Fractional Flow Ruffin; Surgeon: Baljinder Banegas MD; Location: [facility]; Service: Cardiovascular COLONOSCOPY N/A 10/20/2023 Procedure: COLONOSCOPY with biopsy; Surgeon: Joe Rojas MD; Location: [facility]; Service: Gastroenterology CT COLONOSCOPY 03/01/[address] COLONOSCOPY 07/16/2018 CT COLONOSCOPY EGD N/A 10/20/2023 Procedure: ESOPHAGOGASTRODUODENOSCOPY; Surgeon: Joe Rojas MD; Location: Endo; Service: Gastroenterology INSERTION SUBCUTANEOUS PORT N/A 10/21/2023 Procedure: INSERTION SUBCUTANEOUS PORT; Surgeon: Austen Hall MD; Location: Main OR; Service: [employer] KNEE ARTHROPLASTY Right 1999 MT LAPS COLECTOMY PRTL W/RMVL TERMINAL ILEUM Right 10/21/2023 Procedure: COLECTOMY RIGHT ROBOTIC XI AND SMALL BOWEL RESECTION WITH LYMPH NODE DISSECTION AND LIVER BIOPSY; Surgeon: Austen Hall MD; Location: Main OR; Service: [employer] Height: 5' 7 Current weight: 104.3 kg (230 lb) BMI Body mass index is 36.02 kg/m . Weight hx: stable Wt Readings from Last 10 Encounters: 10/19/23 104.3 kg (230 lb) 09/26/23 104.3 kg (230 lb) 05/18/23 108.6 kg (239 lb 6.4 oz) 03/26/23 109.3 kg (241 lb) 05/27/22 109.3 kg (241 lb) 02/10/22 104.3 kg (230 lb) 01/28/22 108 kg (238 lb) 01/06/22 99.8 kg (220 lb) 08/05/21 104.3 kg (230 lb) Significant Weight Change: No Current diet order: Diet: NPO. NPO/CL most of LOS. Recent intake: Current intake does not meet estimated needs. Barriers to adequate p.o. intakes: Frequent NPO status for OR/Procedures Nutrition Related Allergies/Intolerances: No Nutrition Related Allergies noted Cultural or Episcopalian Dietary Needs :No Cultural or Episcopalian Dietary needs noted Patient/family comments: deferred: remains NPO Difficulty Chewing or Swallowing: No Skin Integrity: Surgical Incision(s) GI Function: LBM: 10/19 with bloating Fluid Status: Generalized edema noted Physical Appearance: Unable to assess at this time Labs: Recent Labs 10/26/23 0601 NA 137 K 4.0 BICARB 37* CL 94* GLUCOSE 176* BUN 10 CREATININE 0.84 Recent Labs 10/24/23 0551 10/25/23 0600 10/26/23 0601 GLUCOSE 186* 158* 176* Lab Results Component Value Date HGBA1C 7.6 (H) 10/19/2023 Home Medications Reviewed: Yes Scheduled Meds: atorvastatin 20 mg Oral Nightly enoxaparin (LOVENOX) injection 40 mg Subcutaneous Daily guaiFENesin 600 mg Oral Q12H KODY lispro insulin 0-15 Units Subcutaneous at bedtime insulin lispro 0-30 Units Subcutaneous TID AC metoclopramide (REGLAN) injection 10 mg Intravenous Q6H pantoprazole 40 mg Intravenous Q12H polyethylene glycol 17 g Oral Daily senna-docusate 1 tablet Oral BID sodium chloride (PF) 5 mL Intravenous Q8H KODY zolpidem 10 mg Oral Nightly Continuous Infusions: sodium chloride 0.9 % Nutrient Depleting Medications: No chronic use of nutrient depleting medications noted. 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 Oncology following. Afebrile. WBC normal. With nausea this morning, minimal flatus. Increased abdominal distention. - back down to sips and chips. - continue reglan. Ambulate OOB. - pathology pending. INCIDENTAL FINDINGS: RESOLVED PROBLEMS: SURGERIES/PROCEDURES: Date Operation/Procedure Provider Name 10/21/2023 Robotic right hemicolectomy with central mesenteric lymph node dissection. Robotic small bowel resection. Robotic segment 5 liver wedge resection. Left-sided subclavian Gmchke-A-Muvl placement with fluoroscopic guidance Dr. Hall TODAY'S ASSESSMENT AND PLAN OF CARE: See above DISPOSITION - TBD CHIEF COMPLAINT/ HPI / PFSHx / EVENTS OVER LAST 24HRS: Resting in recliner. Reports feeling increased distention with nausea this morning. Had been up walking prior to our visit. REVIEW OF SYSTEMS: Other than the above items the remainder of the complete ROS is otherwise unchanged from admission. PHYSICAL EXAM: Temp: [97.6 F (36.4 C)-98.6 F (37 C)] 97.6 F (36.4 C) Heart Rate: [74-85] 81 Resp: [14-20] 16 BP: (134-148)/(73-80) 144/77 GENERAL: Appears age appropriate. NEUROLOGICAL: Alert and oriented X 3. No focal neurologic deficits noted. GCS = 15 Head Eyes Ear Nose Throat: Head: Atraumatic, normocephalic. CARDIOVASCULAR: Regular rate and rhythm. 2+ pulses radial/DP/PT bilaterally. RESPIRATORY: Respiratory effort unlabored without use of accessory muscles. On nasal cannula. ABDOMINAL: Rounded, distended, mildly TTP. Incisions well approximated with indio. GENITOURINARY: Normal genitalia for age without lesion or trauma. MUSCULOSKELETAL: Extremities atraumatic without gross deformity x4. SKIN: Skin warm and dry. Intake/Output Summary (Last 24 hours) at 10/26/2023 0918 Last data filed at 10/26/2023 0758 Gross per 24 hour Intake 1365 ml Output 1575 ml Net -210 ml IMAGING: No new imaging. LABS Lab Results Component Value Date WBC 5.81 10/26/2023 HGB 8.1 (L) 10/26/2023 HCT 30.5 (L) 10/26/2023 MCV 79.2 (L) 10/26/2023 EXTMCV 89.1 08/20/2017 PLT 285 10/26/2023 RBC 3.85 (L) 10/26/2023 Lab Results Component Value Date GLUCOSE 176 (H) 10/26/2023 CALCIUM 8.8 10/26/2023 NA 137 10/26/2023 K 4.0 10/26/2023 CL 94 (L) 10/26/2023 BUN 10 10/26/2023 CREATININE 0.84 10/26/2023 Lab Results Component Value Date ALT 8 10/20/2023 AST 22 10/20/2023 ALKPHOS 80 10/20/2023 BILITOT 0.7 10/20/2023 DAILY CHECKLIST: *Need for Restraints: na *Need for Urinary Catheter: na *Need for Central Access Devices: port *Stress Ulcer Prophylaxis: protonix *VTE Prophylaxis (Body mass index is 36.02 kg/m ., Estimated Creatinine Clearance: 69.9 mL/min (by C-G formula based on SCr of 0.84 mg/dL).): lovenox 40 mg daily *Home Medications Reconciled: per primary *Code Status: full code Associated attestation - Austen Hall MD - 10/26/2023 2:56 PM EDT Seen and examined agree with below. Patient with ongoing bloating. Did report some nausea this am, currently not experiencing. No bowelfunction yet. KUB images reviewed, diffuse small and large bowel gas consistent with ileus. Pathology reviewed with patient and family today. Confirmed stage IV colon cancer that were suspicious for. HGB remains stable, WBC normal. AFVS Abdomen softly distended, tympanitic, ATTP Incisions CDI - agree with sips/chips - continue current aggressive bowel regimen - encourage activity - if patient does experience emesis then would recommend NGT replacement * Arias Franco, - 10/26/2023 8:[address] [facility] [place] PROGRESS NOTE Assessment and Plan Dipti Sierra is a 77 y.o. male patient of Dayami Roe MD with history of DM, HLD, HTNand sleep apnea presents to ED with fatigue and shortness of breath found to have hemoglobin of 5.5down from 11.9 in . Colon cancer with Multiple metastatic lesions S/p right hemicolectomy on 10/21/23 Concern for postoperative ileus Colonoscopy with large cecal mass CT chest abdomen and pelvis with no PE, 6.7 cm cecal mass, mesenteric lymph nodes, multiple metastases to liver, mediastinal and hilar lymph nodes, likely pulmonary edema Biopsies taken of cecal mass GS rec removal of mass and port placement Rt hemicolectomy w/LN dissection, robotic small bowel resection due to involved small bowel, segment 5 liver resection and port placed done on 10/20 Pain poorly controlled on 10/22 Discontinued Dilaudid IV, changed to oxycodone pain intermittent order set Final pathology of 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 at this time Aggressive bowel regimen Acute on chronic anemia Iron deficiency anemia Hemoglobin 5.5 down from 9.2(01/2022) Patient currently getting 2 units of PRBC transfused Guaiac neg Ferritin low GI consulted, recommend colonoscopy and EGD Patient on Protonix IV 40 mg twice daily EGD on 10/19 with normal mucosa Colonoscopy on 10/19 with 6 cm mass in cecum-likely cause of bleeding Hb stable IV iron. Follow-up CBC. Acute respiratory failure with hypoxia Acute pulmonary edema, CHF ruled out Patient notes shortness of breath for 2 years BNP of 700-WNL for age Chest x-ray with multiple lung nodules, the largest of which was approximately 5 cm Likely secondary to multiple lung metastases as well as pulmonary edema S/P IV lasix x 2 doses Required HHF post-op IS, lasix 20mg q8 hours x 3 and monitor Added Hycodan, Mucinex, PEP Lactic acidosis Initial 3.1 trend with fluids to 1.1 Likely secondary to bleed Type 2 diabetes Patient takes Actos and Amaryl at home Continue Sliding scale while here Dyslipidemia Continue atorvastatin while here. Patient takes Crestor 10 mg daily at home Hypertension Blood pressure on the low normal side. Consider restarting lisinopril/hydrochlorothiazide if BP increases BRYCE Gets cpap at night Continue while here Obesity Discharge Planning Medically Stable for Discharge Date: 10/26 Patient requires continued hospitalization due to: Possibly advancing diet but need to evaluate forileus Discharge Location: Home Quality Measures DVT Prophylaxis: SCDs Pierce Catheter: absent Code Status full Primary Contact Information Subjective Patient reports bloating and distention today. Otherwise denies any significant issues. Objective BP (!) 144/77 Pulse 81 Temp 97.6 F (36.4 C) (Oral) Resp 18 Ht 5' 7 Wt 104.3 kg (230 lb) SpO2 93% BMI 36.02 kg/m Physical Examination General Appearance: alert; acute on chronically ill appearing; in no acute distress HEENT: Head- normocephalic; Eyes- EOMI, sclera anicteric; Throat- mucous membranes moist Cardiovascular: regular rate and rhythm; normal S1, S2; no murmurs, rubs, clicks or gallops; peripheral edema absent Respiratory: Diminished breath sounds bilaterally; on heated high flow Abdomen: Protuberant, soft, mildly tender, moderately distended, wound dressing c/d/i Neurological: oriented x 3; normal speech; no focal findings or movement disorder noted Musculoskeletal: no significant deformity or tenderness to palpation Skin: normal coloration Psych: normal mood and affect * Daria Herndon PTA - 10/26/2023 8:15 AM EDT Physical Therapy PHYSICAL THERAPY TREATMENT NOTE Skilled Therapy Needs After Discharge Anticipate Resolution of Current Assessment Limitations Including: Pain, Mechanical Barriers, Social Support Are Skilled Therapy Services Needed After Discharge: Yes Intensity of Skilled Therapy: 2-3 days per week DME Recommendation: Wheeled Walker (may not need by discharge, owns) DME Rationale: Patient's condition creates an increased risk of safety hazard without recommended equipment Rehab Potential: Good Outcomes Measures Prior Function - Basic Mobility Raw Score: 24 Points Prior Function - Basic Mobility % Impaired: 0% AM-PAC Basic Mobility Raw Score: 18 Points AM-PAC Basic Mobility % Impaired: 40.47% Activity Tolerance Activity Tolerance: Tolerates 20 - 30 min activity with multiple rests Therapy Precautions Orthotic Devices: No Weight Bearing Status: WFL General Rehab Precautions: Fall risk, Abdominal Balance Sitting Balance - Static: Modified independent Sitting Balance - Dynamic: Modified independent Standing Balance - Static: Stand by assist Mechanical Shop Laborer - Standing Static: wheeled walker Loss of Balance- Standing Static: (none) Standing Balance - Dynamic: Contact guard assist, Stand by assist, with device Mechanical Shop Laborer - Standing Dynamic: wheeled walker Loss of Balance- Standing Dynamic: intermittent Bed Mobility Rolling: (pt up in recliner upon arrival) Transfers Sit to Stand: Stand by assist Mechanical Shop Laborer: wheeled walker, BUE Additional Transfer Trial 2: Yes Sit to Stand Trial 2: Stand by assist Mechanical Shop Laborer Trial 2: wheeled walker, BUE Skilled Intervention Provided: verbal cues, environmental setup/modification, patient education For: controlled descent, efficient movement, safety during functional tasks, safe use of AD and/or equipment, self-monitoring during activity, sequencing of movement Resulting in: improved activity tolerance, improved functional independence, improved performance, improved safety, increased upright tolerance for functional tasks Gait/Locomotion Gait Assistance: Stand by assist Assistive Device: wheeled walker Distance: 30 Feet (Pt trials amb on 3LO2, desat to 88%) Rest Breaks: Yes Rest Break Position: seated Additional Gait Trial 2: Yes Gait Assistance Trial 2: Stand by assist Assistive Device Trial 2: wheeled walker Distance Trial 2: 70 (Trials amb on 4L O2, SpO2 stays in low 90s) Pattern: step through, R decreased step length, L decreased step length, over reliance on upper extremities, forward flexed, decreased candace (steps per minute) Weight Bearing Status: able to maintain Gait Loss(es) of Balance: (none with ww) Environment/Terrain: open/community environment, multiple distractions Skilled Intervention Provided: verbal cues, environmental setup/modification, provided step by stepinstructions, patient education, monitoring patient response with activity For: breathing techniques, device management and safe use of device, efficient movement, fall prevention, gait technique, pathfinding, self-monitoring during activity Resulting in: improved activity tolerance, improved functional independence, improved performance, improved safety, increased upright tolerance for functional tasks Exercise Seated Exercises: Pt performs miguel LE ap, marches, LAQs, and hip abd/add x 20 each to improve m. strength and endurance for functional mobility Skilled Intervention Provided: verbal cues, visual cues, demonstration, instruction on proper technique/alignment, patient education For: achieving full ROM as tolerated, muscle activation, number of repetitions Resulting in: improved activity tolerance, improved functional strength/ROM, improved independence with HEP, improved performance Additional Treatment Details pt on 5L O2 upon arrival, pt reports he has been on 3L. Amb trialled on 3L O2 this date, pt SpO2 dropping to 88% when amb. pt denies SOB/Dizziness. Pt cues in breathing tech. Pt recovers back to low 90s with 1 min of seated rest. Pt trials amb on 4L for next trial, with SpO2 staying in low 90s. Pt returned to recliner post tx with all needs met, call light in reach. No alarm on pre tx. Home Living Obtained Home Living and PLOF info from: Patient Lives With: Spouse, Son Type of Home: House Home Layout: One level Steps to enter home: Yes Rails to enter home: 1 rail Number of stairs to enter home: 3 Mobility Equipment: Wheeled walker Prior Level of Function Level of [place] - Transfers/Ambulation/Mobility: Independent with household ambulation, Independent with functional transfers, Independent with community ambulation (no AD) Level of [place] - ADLs: Independent Driving: Patient drives Vocational: Retired For complete objective data, detailed plan of care and patient education refer to: PT Evaluation flowsheet, PT Evaluation and Treatment flowsheet, PT Treatment flowsheet, patient Plan of Care, Plan of Care progress note, and Patient Education. This note stands as the current Discharge Summary upon patient discharge from the hospital or completion of Physical Therapy Plan of Care. * Lencho Rodriguez MD - 2023 5:31 PM EDT Oncology Inpatient Follow-up 2023 Lencho Rodriguez MD [facility] Patient: Dipti Sierra Date of : 1945 (78 y.o.) PCP: Dayami Roe MD ASSESSMENT/PLAN: Dipti Sierra 78 y.o. male with history of colon cancer awaiting final tissue diagnosed tolerating full liquids will consider chemotherapy in a month SUBJECTIVE: History Since Last Visit: Improved today tolerating clear liquids Pending Lab and Radiology Results Order Current Status Tissue Exam In process Review of Systems: GI All other systems reviewed and negative other than HPI OBJECTIVE: Physical Examination: BP (!) 148/74 Pulse 74 Temp 98 F (36.7 C) (Oral) Resp 18 Ht 5' 7 Wt 104.3 kg (230 lb) SpO2 95% BMI 36.02 kg/m General Appearance: Alert, well appearing, and in no acute distress. HEENT: Head - Normocephalic, atraumatic. Eyes - JAIME bilaterally and EOMI. Ears - normal external appearance, hearing intact. Nose - normal, no erythema. Throat - mucous membranes moist, pharynx without lesions. Neck: Supple, trachea midline. Cardiovascular: S1, S2 normal. No murmurs, rubs, clicks or gallops appreciated. No pedal edema. Respiratory: Lungs clear to auscultation, no wheezes, rales or rhonchi heard. Abdomen: Soft, non-tender, normal bowel sounds, non-distended, no masses or organomegaly appreciated. Neurological: Grossly normal motor and sensory exam. No focal deficits. Musculoskeletal: No joint tenderness, deformity or swelling. Skin: Normal coloration and turgor. No rashes. Psych: Alert, oriented x 3. Normal mood and affect. Laboratory and Additional Data Reviewed: Reviewed 10/25/23 5:31 PM: Laboratory * Michael Maddox MD - 2023 11:[address] [facility] [place] PROGRESS NOTE Assessment and Plan Dipti Sierra is a 77 y.o. male patient of Dayami Roe MD with history of DM, HLD, HTNand sleep apnea presents to ED with fatigue and shortness of breath found to have hemoglobin of 5.5down from 11.9 in . Colon cancer with Multiple metastatic lesions Colonoscopy with large cecal mass CT chest abdomen and pelvis with no PE, 6.7 cm cecal mass, mesenteric lymph nodes, multiple metastases to liver, mediastinal and hilar lymph nodes, likely pulmonary edema Biopsies taken of cecal mass GS rec removal of mass and port placement Rt hemicolectomy w/LN dissection, robotic small bowel resection due to involved small bowel, segment 5 liver resection and port placed done on 10/20 Pain poorly controlled on 10/22 Discontinued Dilaudid IV, changed to oxycodone pain intermittent order set Pending final pathology of cecal mass. Continue clear liquid diet. Add senna Colace and MiraLAX. Awaiting return of bowel function. Acute on chronic anemia Iron deficiency anemia Hemoglobin 5.5 down from 9.2(01/2022) Patient currently getting 2 units of PRBC transfused Guaiac neg Ferritin low GI consulted, recommend colonoscopy and EGD Patient on Protonix IV 40 mg twice daily EGD on 10/19 with normal mucosa Colonoscopy on 10/19 with 6 cm mass in cecum-likely cause of bleeding Hb stable IV iron. CBC tomorrow. Acute respiratory failure with hypoxia Acute pulmonary edema, CHF ruled out Patient notes shortness of breath for 2 years BNP of 700-WNL for age Chest x-ray with multiple lung nodules, the largest of which was approximately 5 cm Likely secondary to multiple lung metastases as well as pulmonary edema S/P IV lasix x 2 doses Required HHF post-op IS, lasix 20mg q8 hours x 3 and monitor Added Hycodan, Mucinex, PEP Lactic acidosis Initial 3.1 trend with fluids to 1.1 Likely secondary to bleed Type 2 diabetes Patient takes Actos and Amaryl at home Continue Sliding scale while here Dyslipidemia Continue atorvastatin while here. Patient takes Crestor 10 mg daily at home Hypertension Blood pressure on the low normal side. Consider restarting lisinopril/hydrochlorothiazide if BP increases BRYCE Gets cpap at night Continue while here Obesity Discharge Planning Medically Stable for Discharge Date: 10/25 Patient requires continued hospitalization due to: Advancing diet today, awaiting final pathology results of cecal mass. Oncology and general surgery following. Plan for discharge once okay with consultants in next 1 to 2 days. Discharge Location: Home Quality Measures DVT Prophylaxis: SCDs Pierce Catheter: absent Code Status full Primary Contact Information Subjective Patient reports having great sleep last night. Feeling much better this morning. Has not had a bowel movement. Objective BP (!) 146/77 Pulse 80 Temp 97.9 F (36.6 C) (Oral) Resp 14 Ht 5' 7 Wt 104.3 kg (230 lb) SpO2 92% BMI 36.02 kg/m Physical Examination General Appearance: alert; acute on chronically ill appearing; in no acute distress HEENT: Head- normocephalic; Eyes- EOMI, sclera anicteric; Throat- mucous membranes moist Cardiovascular: regular rate and rhythm; normal S1, S2; no murmurs, rubs, clicks or gallops; peripheral edema absent Respiratory: Diminished breath sounds bilaterally; on heated high flow Abdomen: Protuberant, soft, mildly tender, mildly distended, improved bs, wound dressing c/d/i Neurological: oriented x 3; normal speech; no focal findings or movement disorder noted Musculoskeletal: no significant deformity or tenderness to palpation Skin: normal coloration Psych: normal mood and affect * Prosper Camarillo MD - 2023 8:44 AM EDT POD #4 Robotic right hemicolectomy with central mesenteric lymph node dissection. Robotic small bowel resection. Robotic segment 5 liver wedge resection. Left-sided subclavian [id number] placementwith fluoroscopic guidance The patient feels very bloated but is otherwise without complaints. His pain is minimal. He is tolerating clear liquids and ambulating well. He denies any flatus or bowel movement still but also denies nausea. Vital signs stable, afebrile Belly markedly distended, all incisions look good Hemoglobin stable at 8.2 (7.8), WBC normal as are electrolytes Continue to encourage increased activity Continue with clear liquids for now Awaiting return of bowel function * Michael Maddox MD - 10/24/2023 11:[address] [facility] [place] PROGRESS NOTE Assessment and Plan Dipti Sierra is a 77 y.o. male patient of Dayami Roe MD with history of DM, HLD, HTNand sleep apnea presents to ED with fatigue and shortness of breath found to have hemoglobin of 5.5down from 11.9 in . Colon cancer with Multiple metastatic lesions Colonoscopy with large cecal mass CT chest abdomen and pelvis with no PE, 6.7 cm cecal mass, mesenteric lymph nodes, multiple metastases to liver, mediastinal and hilar lymph nodes, likely pulmonary edema Biopsies taken of cecal mass GS rec removal of mass and port placement Rt hemicolectomy w/LN dissection, robotic small bowel resection due to involved small bowel, segment 5 liver resection and port placed done on 10/20 Pain poorly controlled on 10/22 Discontinued Dilaudid IV, changed to oxycodone pain intermittent order set Pending final pathology of cecal mass. Continue clear liquids for general surgery. Encourage ambulation today. Acute on chronic anemia Iron deficiency anemia Hemoglobin 5.5 down from 9.2(01/2022) Patient currently getting 2 units of PRBC transfused Guaiac neg Ferritin low GI consulted, recommend colonoscopy and EGD Patient on Protonix IV 40 mg twice daily EGD on 10/19 with normal mucosa Colonoscopy on 10/19 with 6 cm mass in cecum-likely cause of bleeding Hb stable IV iron today. CBC tomorrow. Acute respiratory failure with hypoxia Acute pulmonary edema, CHF ruled out Patient notes shortness of breath for 2 years BNP of 700-WNL for age Chest x-ray with multiple lung nodules, the largest of which was approximately 5 cm Likely secondary to multiple lung metastases as well as pulmonary edema Will give Lasix IV x 2 doses Required HHF post-op IS, lasix 20mg q8 hours x 3 and monitor Added Hycodan, Mucinex, PEP Lactic acidosis Initial 3.1 trend with fluids to 1.1 Likely secondary to bleed Type 2 diabetes Patient takes Actos and Amaryl at home Continue Sliding scale while here Dyslipidemia Continue atorvastatin while here. Patient takes Crestor 10 mg daily at home Hypertension Blood pressure on the low normal side. Consider restarting lisinopril/hydrochlorothiazide if BP increases BRYCE Gets cpap at night Continue while here Obesity Discharge Planning Medically Stable for Discharge Date: 10/25 Patient requires continued hospitalization due to: Investigation of multiple metastasis, oncology consult, respiratory failure Discharge Location: Home Quality Measures DVT Prophylaxis: SCDs Pierce Catheter: absent Code Status full Primary Contact Information Subjective Pain is better controlled, he is passing gas. No nausea or vomiting. Finished his breakfast this morning. Objective BP 137/72 Pulse 80 Temp 98.5 F (36.9 C) (Oral) Resp (!) 21 Ht 5' 7 Wt 104.3 kg (230 lb) SpO2 91% BMI 36.02 kg/m Physical Examination General Appearance: alert; acute on chronically ill appearing; in no acute distress HEENT: Head- normocephalic; Eyes- EOMI, sclera anicteric; Throat- mucous membranes moist Cardiovascular: regular rate and rhythm; normal S1, S2; no murmurs, rubs, clicks or gallops; peripheral edema absent Respiratory: Diminished breath sounds bilaterally; on heated high flow Abdomen: Protuberant, soft, mildly tender, mildly distended, improved bs, wound dressing c/d/i Neurological: oriented x 3; normal speech; no focal findings or movement disorder noted Musculoskeletal: no significant deformity or tenderness to palpation Skin: normal coloration Psych: normal mood and affect * Lencho Rodriguez MD - 10/24/2023 9:23 AM EDT Oncology Inpatient Follow-up 10/24/2023 Lencho Rodriguez MD [facility] Patient: Dipti Sierra Date of : 1945 (77 y.o.) PCP: Dayami Roe MD SUBJECTIVE: History Since Last Visit: Patient doing well status post laparoscopy this last indicates he has some abdominal soreness. But is ambulating with physical therapy advised final path is not available as of today. Will discuss it with him as soon as it arrives likely her testing was ordered. CEA is in the range of 43 his hemoglobin today is 7.8 would consider giving IV iron his iron level islow. Pending Lab and Radiology Results Order Current Status Tissue Exam In process Interpretation of Testing: I personally reviewed the Chest X-ray and agree with the interpretation(s). Review of Systems: A Complete review of systems was performed and is negative except for what is listed in the HPI. OBJECTIVE: Physical Examination: BP 137/72 Pulse 80 Temp 98.5 F (36.9 C) (Oral) Resp (!) 21 Ht 5' 7 Wt 104.3 kg (230 lb) SpO2 91% BMI 36.02 kg/m ECOG Gen: NAD, resting comfortably HEENT: NCAT, no temporal wasting, anicteric sclerae, mmm, no op lesions Neck: supple, no thyromegaly or LAD Lymphatics: no cervical, axillary, or inguinal adenopathy Chest: CTAB, no w/r/r, no respiratory distress CV: RRR, no m/r/g, normal S1, S2 Abd: soft, nontender, nondistended, +BS Ext: wwp, no c/c/e Skin: no rashes or lesions Neuro: Alert and oriented x4, no focal deficits, moves all four extremities Psych: Mood normal. Laboratory and Additional Data Reviewed: Reviewed 10/24/23 9:23 AM: Laboratory Lab Results Component Value Date WBC 8.17 10/24/2023 HGB 7.8 (L) 10/24/2023 HCT 29.6 (L) 10/24/2023 MCV 78.5 (L) 10/24/2023 EXTMCV 89.1 08/20/2017 PLT 291 10/24/2023 RBC 3.77 (L) 10/24/2023 Lab Results Component Value Date GLUCOSE 186 (H) 10/24/2023 CALCIUM 8.8 10/24/2023 NA 138 10/24/2023 K 4.1 10/24/2023 CL 96 (L) 10/24/2023 BUN 21 10/24/2023 CREATININE 0.90 10/24/2023 Lab Results Component Value Date ALT 8 10/20/2023 AST 22 10/20/2023 ALKPHOS 80 10/20/2023 BILITOT 0.7 10/20/2023 ASSESSMENT/PLAN: Dipti Sierra 77 y.o. male with history of metastatic colorectal cancer to the lung and liver status post resection of a cecal mass status post excision of liver lesion awaiting final path. I have ordered further testing on the colon cancer resected his hemoglobin 7.8 today would give him IV iron will help his anemia. 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 Oncology following. Afebrile. WBC 8.2 (11.8). NG out 10/21, patient denies any flatus or BM. No nausea or emesis Continued right sided abdominal tenderness - pathology pending - continue cld until further bowel function - ambulate. OOB. Therapies. - pain control. Acute Respiratory Failure Assessment & Plan Management per primary team. Currently on 4L NC, encourage pulm hygiene Anemia Assessment & Plan Hemodynamically stable. Hemoglobin 7.8(8.4). HD stable - monitor. INCIDENTAL FINDINGS: RESOLVED PROBLEMS: SURGERIES/PROCEDURES: Date Operation/Procedure Provider Name 10/21/2023 Robotic right hemicolectomy with central mesenteric lymph node dissection. Robotic small bowel resection. Robotic segment 5 liver wedge resection. Left-sided subclavian [id number]-[id number] placement with fluoroscopic guidance Dr. Hall TODAY'S ASSESSMENT AND PLAN OF CARE: See above DISPOSITION - TBD CHIEF COMPLAINT/ HPI / PFSHx / EVENTS OVER LAST 24HRS: Resting in recliner, patient reports continued right sided abdominal pain. REVIEW OF SYSTEMS: Other than the above items the remainder of the complete ROS is otherwise unchanged from admission. PHYSICAL EXAM: Temp: [97.9 F (36.6 C)-98.5 F (36.9 C)] 98.5 F (36.9 C) Heart Rate: [76-89] 80 Resp: [16-21] 21 BP: (132-167)/(58-81) 137/72 GENERAL: Appears age appropriate. NEUROLOGICAL: Alert and oriented X 3. No focal neurologic deficits noted. GCS = 15 Head Eyes Ear Nose Throat: Head: Atraumatic, normocephalic. CARDIOVASCULAR: Regular rate and rhythm. 2+ pulses radial/DP/PT bilaterally. RESPIRATORY: Respiratory effort unlabored without use of accessory muscles. On bipap. ABDOMINAL: Rounded, softly distended, mildly TTP. Incisions with dressing CDI. GENITOURINARY: Normal genitalia for age without lesion or trauma. MUSCULOSKELETAL: Extremities atraumatic without gross deformity x4. SKIN: Skin warm and dry. Intake/Output Summary (Last 24 hours) at 10/24/2023 0817 Last data filed at 10/24/2023 0100 Gross per 24 hour Intake -- Output 250 ml Net -250 ml IMAGING: No imaging. LABS Lab Results Component Value Date WBC 8.17 10/24/2023 HGB 7.8 (L) 10/24/2023 HCT 29.6 (L) 10/24/2023 MCV 78.5 (L) 10/24/2023 EXTMCV 89.1 08/20/2017 PLT 291 10/24/2023 RBC 3.77 (L) 10/24/2023 Lab Results Component Value Date GLUCOSE 186 (H) 10/24/2023 CALCIUM 8.8 10/24/2023 NA 138 10/24/2023 K 4.1 10/24/2023 CL 96 (L) 10/24/2023 BUN 21 10/24/2023 CREATININE 0.90 10/24/2023 Lab Results Component Value Date ALT 8 10/20/2023 AST 22 10/20/2023 ALKPHOS 80 10/20/2023 BILITOT 0.7 10/20/2023 DAILY CHECKLIST: *Need for Restraints: na *Need for Urinary Catheter: na *Need for Central Access Devices: port *Stress Ulcer Prophylaxis: protonix *VTE Prophylaxis (Body mass index is 36.02 kg/m ., Estimated Creatinine Clearance: 66.3 mL/min (by C-G formula based on SCr of 0.9 mg/dL).): lovenox 40 mg daily *Home Medications Reconciled: per primary *Code Status: full code Associated attestation - Austen Hall MD - 10/24/2023 10:16 AM EDT Seen and examined agree with below. No nausea but no bowel function yet. Normal abdominal soreness. AFVS Labs reviewed, WBC normal HGB stable. Abdomen softly distended, ATTP Incision CDI - keep on clears for now, encourage ambulation - reglan scheduled * Venessa Nicolas MD - 10/23/2023 4:[address] [facility] [place] PROGRESS NOTE Assessment and Plan Dipti Sierra is a 77 y.o. male patient of Dayami Roe MD with history of DM, HLD, HTNand sleep apnea presents to ED with fatigue and shortness of breath found to have hemoglobin of 5.5down from 11.9 in . Colon cancer with Multiple metastatic lesions Colonoscopy with large cecal mass CT chest abdomen and pelvis with no PE, 6.7 cm cecal mass, mesenteric lymph nodes, multiple metastases to liver, mediastinal and hilar lymph nodes, likely pulmonary edema Biopsies taken of cecal mass Oncology consult-rec GS consult GS rec removal of mass and port placement Rt hemicolectomy w/LN dissection, robotic small bowel resection due to involved small bowel, segment 5 liver resection and port placed done on 10/20 Pain poorly controlled on 10/22 Discontinued Dilaudid IV, changed to oxycodone pain intermittent order set Clear liquids per surgery Acute on chronic anemia Iron deficiency anemia Hemoglobin 5.5 down from 9.2(01/2022) Patient currently getting 2 units of PRBC transfused Guaiac neg Ferritin low GI consulted, recommend colonoscopy and EGD Patient on Protonix IV 40 mg twice daily EGD on 10/19 with normal mucosa Colonoscopy on 10/19 with 6 cm mass in cecum-likely cause of bleeding Hb stable Acute respiratory failure with hypoxia Acute pulmonary edema, CHF ruled out Patient notes shortness of breath for 2 years BNP of 700-WNL for age Chest x-ray with multiple lung nodules, the largest of which was approximately 5 cm Likely secondary to multiple lung metastases as well as pulmonary edema Will give Lasix IV x 2 doses Required HHF post-op IS, lasix 20mg q8 hours x 3 and monitor Added Hycodan, Mucinex, PEP Lactic acidosis Initial 3.1 trend with fluids to 1.1 Likely secondary to bleed Type 2 diabetes Patient takes Actos and Amaryl at home Continue Sliding scale while here Dyslipidemia Continue atorvastatin while here. Patient takes Crestor 10 mg daily at home Hypertension Blood pressure on the low normal side. Consider restarting lisinopril/hydrochlorothiazide if BP increases BRYCE Gets cpap at night Continue while here Obesity Discharge Planning Medically Stable for Discharge Date: 10/25 Patient requires continued hospitalization due to: Investigation of multiple metastasis, oncology consult, respiratory failure Discharge Location: Home Quality Measures DVT Prophylaxis: SCDs Pierce Catheter: absent Code Status full Primary Contact Information Subjective Pain is still not very well-controlled when patient moves or coughs. His pain is normally 3 out of 10 but it increases Significantly with cough. He still is not passing gas and does note bloating. Hehas not had a stool. He has no trouble urinating. Objective BP 135/69 (BP Location: Right arm, Patient Position: Lying) Pulse 76 Temp 98.4 F (36.9 C) (Oral) Resp (!) 21 Ht 5' 7 Wt 104.3 kg (230 lb) SpO2 96% BMI 36.02 kg/m Physical Examination General Appearance: alert; acute on chronically ill appearing; in no acute distress HEENT: Head- normocephalic; Eyes- EOMI, sclera anicteric; Throat- mucous membranes moist Cardiovascular: regular rate and rhythm; normal S1, S2; no murmurs, rubs, clicks or gallops; peripheral edema absent Respiratory: Diminished breath sounds bilaterally; on heated high flow Abdomen: Protuberant, soft, mildly tender, mildly distended, improved bs, wound dressing c/d/i Neurological: oriented x 3; normal speech; no focal findings or movement disorder noted Musculoskeletal: no significant deformity or tenderness to palpation Skin: normal coloration Psych: normal mood and affect * Lencho Rodriguez MD - 10/23/2023 3:15 PM EDT Oncology Inpatient Follow-up 10/23/2023 Lencho Rodriguez MD [facility] Patient: Dipti Sierra Date of : 1945 (77 y.o.) PCP: Dayami Roe MD SUBJECTIVE: History Since Last Visit: 77-year-old male status post laparoscopy with resection of the cecum for a small bowel for the liver and Port-A-Cath placed. He is doing well day 2 postoperatively. Final path not available. Pending Lab and Radiology Results Order Current Status Tissue Exam In process Review of Systems: A Complete review of systems was performed and is negative except for what is listed in the HPI. OBJECTIVE: Physical Examination: BP 131/73 Pulse 85 Temp 98.7 F (37.1 C) (Oral) Resp 16 Ht 5' 7 Wt 104.3 kg (230 lb) SpO2 95% BMI 36.02 kg/m ECOG Gen: NAD, resting comfortably HEENT: NCAT, no temporal wasting, anicteric sclerae, mmm, no op lesions Neck: supple, no thyromegaly or LAD Lymphatics: no cervical, axillary, or inguinal adenopathy Chest: CTAB, no w/r/r, no respiratory distress CV: RRR, no m/r/g, normal S1, S2 Abd: soft, nontender, nondistended, +BS Ext: wwp, no c/c/e Skin: no rashes or lesions Neuro: Alert and oriented x4, no focal deficits, moves all four extremities Psych: Mood normal. Laboratory and Additional Data Reviewed: Reviewed 10/23/23 3:15 PM: Laboratory Lab Results Component Value Date WBC 11.76 (H) 10/23/2023 HGB 8.4 (L) 10/23/2023 HCT 31.7 (L) 10/23/2023 MCV 77.9 (L) 10/23/2023 EXTMCV 89.1 08/20/2017 PLT 333 10/23/2023 RBC 4.07 (L) 10/23/2023 Lab Results Component Value Date GLUCOSE 151 (H) 10/23/2023 CALCIUM 8.9 10/23/2023 NA 139 10/23/2023 K 3.8 10/23/2023 CL 96 (L) 10/23/2023 BUN 25 10/23/2023 CREATININE 0.96 10/23/2023 Lab Results Component Value Date ALT 8 10/20/2023 AST 22 10/20/2023 ALKPHOS 80 10/20/2023 BILITOT 0.7 10/20/2023 ASSESSMENT/PLAN: Dipti Sierra 77 y.o. male with history of metastatic colorectal cancer to the lung and liver. Patient's status post resection of the cecal lesion. Will hold any therapy for 20 days at that time may begin FOLFOX without Avastin possibly add Avastin 2 weeks after that time. Wait for final path and special studies. * Daria Herndon, SIGHT MOUNTER - 10/23/2023 12:45 PM EDT Physical Therapy PHYSICAL THERAPY TREATMENT NOTE Skilled Therapy Needs After Discharge Anticipate Resolution of Current Assessment Limitations Including: Pain, Mechanical Barriers, Social Support Are Skilled Therapy Services Needed After Discharge: Yes Intensity of Skilled Therapy: 2-3 days per week DME Recommendation: Wheeled Walker (may not need by discharge, owns) DME Rationale: Patient's condition creates an increased risk of safety hazard without recommended equipment Rehab Potential: Good Outcomes Measures Prior Function - Basic Mobility Raw Score: 24 Points Prior Function - Basic Mobility % Impaired: 0% AM-PAC Basic Mobility Raw Score: 17 Points AM-PAC Basic Mobility % Impaired: 43.83% Activity Tolerance Activity Tolerance: Tolerates 10 - 20 min activity with multiple rests (pt desat to low 80s on 6L O2) Therapy Precautions Orthotic Devices: No Weight Bearing Status: WFL General Rehab Precautions: Fall risk, Abdominal Balance Sitting Balance - Static: Stand by assist Sitting Balance - Dynamic: Stand by assist Standing Balance - Static: Contact guard assist, with device Mechanical Shop Laborer - Standing Static: wheeled walker Loss of Balance- Standing Static: (none with ww) Standing Balance - Dynamic: Contact guard assist, with device Mechanical Shop Laborer - Standing Dynamic: wheeled walker Loss of Balance- Standing Dynamic: intermittent Standing Balance Treatment: postural re-education, varying base of support, upright gaze, marching in place (Pt' SpO2 able to stay in low 90s on 6L O2) Skilled Intervention Provided: verbal cues, patient education For: balance recovery, efficient movement, safe use of AD and/or equipment, self-monitoring during activity, sequencing of movement Resulting in: improved activity tolerance, improved functional independence, improved performance, improved safety, improved trunk stability, increased upright tolerance for functional tasks, improved balance reactions Transfers Sit to Stand: Contact guard assist Mechanical Shop Laborer: wheeled walker, BUE Additional Transfer Trial 2: Yes Sit to Stand Trial 2: Contact guard assist Mechanical Shop Laborer Trial 2: wheeled walker, BUE Skilled Intervention Provided: verbal cues, visual cues, environmental setup/modification, providedstep by step instructions, patient education For: UE positioning, controlled descent, efficient movement, safety during functional tasks, safe use of AD and/or equipment, sequencing of movement Resulting in: improved activity tolerance, improved functional independence, improved performance, improved safety, increased upright tolerance for functional tasks Gait/Locomotion Gait Assistance: Contact guard assist Assistive Device: wheeled walker Distance: 30 Feet (desat to low 80s during amb on 6L O2. pt cued in breathing technique and seated rest) Rest Breaks: Yes Rest Break Position: seated Rest Break Duration: 3mins Additional Gait Trial 2: Yes Gait Assistance Trial 2: Contact guard assist Assistive Device Trial 2: wheeled walker Distance Trial 2: 25 Pattern: step through, L impaired heel strike, R impaired heel strike, L decreased step length, R decreased step length, over reliance on upper extremities, forward flexed, decreased candace (steps per minute) Weight Bearing Status: able to maintain Gait Loss(es) of Balance: intermittent (mild unsteadiness) Environment/Terrain: open/community environment, multiple distractions Skilled Intervention Provided: verbal cues, environmental setup/modification, provided step by stepinstructions, patient education, monitoring patient response with activity For: breathing techniques, device management and safe use of device, efficient movement, fall prevention, gait technique, improved posture, pathfinding, self- monitoring during activity Resulting in: improved activity tolerance, improved functional independence, improved performance, improved safety, increased upright tolerance for functional tasks Exercise Seated Exercises: Pt performs miguel LE ap, LAQs, and hip add x 15 each to improve m. strength and endurance Skilled Intervention Provided: verbal cues, visual cues, demonstration, instruction on proper technique/alignment, patient education For: achieving full ROM as tolerated, hold duration, muscle activation, number of repetitions Resulting in: improved activity tolerance, improved independence with HEP, improved functional strength/ROM, improved performance Additional Treatment Details Pt on 4L O2 upon arrival, however pt desat upon standing into low 80s. O2 turned up to 6 L for ambulation. Pt reports no SOB/dizziness. Pt requires increased rest time to alow SpO2 to rise. Pt up in chair post tx with all needs met, call light in reach. No alarm on pre tx. Home Living Obtained Home Living and PLOF info from: Patient Lives With: Spouse, Son Type of Home: House Home Layout: One level Steps to enter home: Yes Rails to enter home: 1 rail Number of stairs to enter home: 3 Mobility Equipment: Wheeled walker Prior Level of Function Level of [place] - Transfers/Ambulation/Mobility: Independent with household ambulation, Independent with functional transfers, Independent with community ambulation (no AD) Level of [place] - ADLs: Independent Driving: Patient drives Vocational: Retired For complete objective data, detailed plan of care and patient education refer to: PT Evaluation flowsheet, PT Evaluation and Treatment flowsheet, PT Treatment flowsheet, patient Plan of Care, Plan of Care progress note, and Patient Education. This note stands as the current Discharge Summary upon patient discharge from the hospital or completion of Physical Therapy Plan of Care. * Candy Bright LISW - 10/23/2023 10:20 AM EDT Care Management Progress Note Date: 10/23/2023 Time: 10:20 AM Patient Name: Dipti Sierra Date of : 1945 Discharge Plan: Plan A: Home Discharging Transportation Plan: Discharge Plan Status: In to see patient. Discussed continued therapy at discharge. Patient denied needing outpatient or home health care at this time. Patient advised to notify nursing if he changeshis mind. 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 Oncology following. Afebrile. WBC 11 (12). NG removed 10/21 - no nausea or vomiting. Awaiting for bowel function. - ok for clears today - ambulate. OOB. Therapies. - pain control. Acute Respiratory Failure Assessment & Plan Management per primary team. Anemia Assessment & Plan Hemodynamically stable. Hemoglobin 8.4 (7.9). - monitor. INCIDENTAL FINDINGS: RESOLVED PROBLEMS: SURGERIES/PROCEDURES: Date Operation/Procedure Provider Name 10/21/2023 Robotic right hemicolectomy with central mesenteric lymph node dissection. Robotic small bowel resection. Robotic segment 5 liver wedge resection. Left-sided subclavian Znxvem-T-Wcjy placement with fluoroscopic guidance Dr. Hall TODAY'S ASSESSMENT AND PLAN OF CARE: See above DISPOSITION - TBD CHIEF COMPLAINT/ HPI / PFSHx / EVENTS OVER LAST 24HRS: Resting in recliner on bipap. Patient reports mild abdominal pain. No nausea or vomiting. No flatusyet. REVIEW OF SYSTEMS: Other than the above items the remainder of the complete ROS is otherwise unchanged from admission. PHYSICAL EXAM: Temp: [97.8 F (36.6 C)-99.2 F (37.3 C)] 99.2 F (37.3 C) Heart Rate: [77-84] 77 Resp: [16-20] 19 BP: (127-160)/(57-95) 148/75 FiO2 (%): 6 GENERAL: Appears age appropriate. NEUROLOGICAL: Alert and oriented X 3. No focal neurologic deficits noted. GCS = 15 Head Eyes Ear Nose Throat: Head: Atraumatic, normocephalic. CARDIOVASCULAR: Regular rate and rhythm. 2+ pulses radial/DP/PT bilaterally. RESPIRATORY: Respiratory effort unlabored without use of accessory muscles. On bipap. ABDOMINAL: Rounded, softly distended, mildly TTP. Incisions with dressing CDI. GENITOURINARY: Normal genitalia for age without lesion or trauma. MUSCULOSKELETAL: Extremities atraumatic without gross deformity x4. SKIN: Skin warm and dry. Intake/Output Summary (Last 24 hours) at 10/23/2023 0737 Last data filed at 10/22/2023 1700 Gross per 24 hour Intake -- Output 800 ml Net -800 ml IMAGING: No imaging. LABS Lab Results Component Value Date WBC 11.76 (H) 10/23/2023 HGB 8.4 (L) 10/23/2023 HCT 31.7 (L) 10/23/2023 MCV 77.9 (L) 10/23/2023 EXTMCV 89.1 08/20/2017 PLT 333 10/23/2023 RBC 4.07 (L) 10/23/2023 Lab Results Component Value Date GLUCOSE 151 (H) 10/23/2023 CALCIUM 8.9 10/23/2023 NA 139 10/23/2023 K 3.8 10/23/2023 CL 96 (L) 10/23/2023 BUN 25 10/23/2023 CREATININE 0.96 10/23/2023 Lab Results Component Value Date ALT 8 10/20/2023 AST 22 10/20/2023 ALKPHOS 80 10/20/2023 BILITOT 0.7 10/20/2023 DAILY CHECKLIST: *Need for Restraints: na *Need for Urinary Catheter: na *Need for Central Access Devices: port *Stress Ulcer Prophylaxis: protonix *VTE Prophylaxis (Body mass index is 36.02 kg/m ., Estimated Creatinine Clearance: 62.2 mL/min (by C-G formula based on SCr of 0.96 mg/dL).): lovenox 40 mg daily *Home Medications Reconciled: per primary *Code Status: full code Associated attestation - Austen Hall MD - 10/23/2023 3:51 PM EDT Seen and examined agree with below. No new issues. Denies nausea. No bowel function yet. AFVS Labs reviewed, HGB stable, WBC trending down Abdomen softly distended, ATTP - clear liquids today - await bowel function - encourage activity - awaiting final pathology * Lencho Rodriguez MD - 10/22/2023 3:14 PM EDT Oncology Inpatient Follow-up 10/22/2023 Lencho Rodriguez MD [facility] Patient: Dipti Sierra Date of : 1945 (77 y.o.) PCP: Dayami oRe MD SUBJECTIVE: History Since Last Visit: Patient underwent a robotic right hemicolectomy and partial small bowel resection wedge resection of the liver lesion 5 cm and Port-A-Cath placed he is doing well postoperatively ambulating with physical therapy. Abdomen without significant discomfort Pending Lab and Radiology Results Order Current Status Tissue Exam In process Review of Systems: A Complete review of systems was performed and is negative except for what is listed in the HPI. OBJECTIVE: Physical Examination: BP (!) 145/58 Pulse 81 Temp 98.3 F (36.8 C) Resp 16 Ht 5' 7 Wt 104.3 kg (230 lb) SpO2 92% BMI 36.02 kg/m ECOG Gen: NAD, resting comfortably HEENT: NCAT, no temporal wasting, anicteric sclerae, mmm, no op lesions Neck: supple, no thyromegaly or LAD Lymphatics: no cervical, axillary, or inguinal adenopathy Chest: CTAB, no w/r/r, no respiratory distress CV: RRR, no m/r/g, normal S1, S2 Abd: soft, nontender, nondistended, +BS Ext: wwp, no c/c/e Skin: no rashes or lesions Neuro: Alert and oriented x4, no focal deficits, moves all four extremities Psych: Mood normal. Laboratory and Additional Data Reviewed: Reviewed 10/22/23 3:14 PM: Laboratory Lab Results Component Value Date WBC 12.74 (H) 10/22/2023 HGB 7.9 (L) 10/22/2023 HCT 30.1 (L) 10/22/2023 MCV 76.6 (L) 10/22/2023 EXTMCV 89.1 08/20/2017 PLT 324 10/22/2023 RBC 3.93 (L) 10/22/2023 Lab Results Component Value Date GLUCOSE 290 (H) 10/22/2023 CALCIUM 8.3 (L) 10/20/2023 NA 141 10/22/2023 K 4.2 10/22/2023 CL 100 10/22/2023 BUN 26 (H) 10/22/2023 CREATININE 1.06 10/22/2023 Lab Results Component Value Date ALT 8 10/20/2023 AST 22 10/20/2023 ALKPHOS 80 10/20/2023 BILITOT 0.7 10/20/2023 ASSESSMENT/PLAN: Dipti Sierra 77 y.o. male with history of 77-year-old male with a history of metastatic colorectalcancer final path is pending today he had robotic right hemicolectomy partial small bowel resectionand lesion removed from the liver 5 cm in size as well as a Port-A-Cath he is doing well first day postoperatively. Will follow with you and advise consider IV iron * Louisa Vaca, AAKASH - 10/22/2023 8:18 AM EDT [facility] DAILY PROGRESS NOTE DIAGNOSIS / REASON FOR CONSULT: Surgery Admitted with these risk variables:Acute Respiratory Failure, Diabetes, Acute Glycemic Conditions, and Metastatic Cancer. Please see assessment and plan for further details. 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 Oncology following. Afebrile. WBC 12.74 likely reactive. Minimal NG output. - ok for ice chips. -ambulate. OOB. Therapies. - pain control. Acute Respiratory Failure Assessment & Plan Management per primary team. Anemia Assessment & Plan Hemodynamically stable. Hemoglobin 7.9. (8.5). - monitor. INCIDENTAL FINDINGS: RESOLVED PROBLEMS: SURGERIES/PROCEDURES: Date Operation/Procedure Provider Name 10/21/2023 Robotic right hemicolectomy with central mesenteric lymph node dissection. Robotic small bowel resection. Robotic segment 5 liver wedge resection. Left-sided subclavian Thpxny-L-Ovxd placement with fluoroscopic guidance Dr. Hall TODAY'S ASSESSMENT AND PLAN OF CARE: See above DISPOSITION - TBD CHIEF COMPLAINT/ HPI / PFSHx / EVENTS OVER LAST 24HRS: Resting in bed. Patient reports generalized abdominal pain to palpation but mild at rest. No nauseaor vomiting. No flatus yet. REVIEW OF SYSTEMS: Other than the above items the remainder of the complete ROS is otherwise unchanged from admission. PHYSICAL EXAM: Temp: [97 F (36.1 C)-98.2 F (36.8 C)] 97.8 F (36.6 C) Heart Rate: [65-95] 81 Resp: [13-22] 16 BP: (116-147)/(56-71) 147/60 FiO2 (%): 50 GENERAL: Appears age appropriate. NEUROLOGICAL: Alert and oriented X 3. No focal neurologic deficits noted. GCS = 15 Head Eyes Ear Nose Throat: Head: Atraumatic, normocephalic. CARDIOVASCULAR: Regular rate and rhythm. 2+ pulses radial/DP/PT bilaterally. RESPIRATORY: Respiratory effort unlabored without use of accessory muscles. On high flow nasal cannula, ABDOMINAL: Rounded, softly distended, mildly TTP. Incisions with dressing CDI. NG with minimal clear output. GENITOURINARY: Normal genitalia for age without lesion or trauma. MUSCULOSKELETAL: Extremities atraumatic without gross deformity x4. SKIN: Skin warm and dry. Intake/Output Summary (Last 24 hours) at 10/22/2023 0818 Last data filed at 10/22/2023 0016 Gross per 24 hour Intake 1350 ml Output 975 ml Net 375 ml IMAGING: Imaging reviewed. LABS Lab Results Component Value Date WBC 12.74 (H) 10/22/2023 HGB 7.9 (L) 10/22/2023 HCT 30.1 (L) 10/22/2023 MCV 76.6 (L) 10/22/2023 EXTMCV 89.1 08/20/2017 PLT 324 10/22/2023 RBC 3.93 (L) 10/22/2023 Lab Results Component Value Date GLUCOSE 290 (H) 10/22/2023 CALCIUM 8.3 (L) 10/20/2023 NA 141 10/22/2023 K 4.2 10/22/2023 CL 100 10/22/2023 BUN 26 (H) 10/22/2023 CREATININE 1.06 10/22/2023 Lab Results Component Value Date ALT 8 10/20/2023 AST 22 10/20/2023 ALKPHOS 80 10/20/2023 BILITOT 0.7 10/20/2023 DAILY CHECKLIST: *Need for Restraints: na *Need for Urinary Catheter: na *Need for Central Access Devices: port *Stress Ulcer Prophylaxis: protonix *VTE Prophylaxis (Body mass index is 36.02 kg/m ., Estimated Creatinine Clearance: 56.3 mL/min (by C-G formula based on SCr of 1.06 mg/dL).): ok for lovenox *Home Medications Reconciled: per primary *Code Status: full code Associated attestation - Austen Hall MD - 10/22/2023 2:16 PM EDT Seen and examined agree with below. Overall doing well. Pain/soreness as expected. No nausea or emesis. No bowel function. Scant NGT output overnight. AFVS Labs reviewed, reactive leukocytosis. Abdomen soft, ATTP, ND Incisions CDI - DC NGT - sips of clears - ambulate - await final pathology. Clinically this was stage 4 malignancy. * Venessa Nicolas MD - 10/22/2023 7:[address] [facility] [place] PROGRESS NOTE Assessment and Plan Dipti Sierra is a 77 y.o. male patient of Dayami Roe MD with history of DM, HLD, HTNand sleep apnea presents to ED with fatigue and shortness of breath found to have hemoglobin of 5.5down from 11.9 in . Colon cancer with Multiple metastatic lesions Colonoscopy with large cecal mass CT chest abdomen and pelvis with no PE, 6.7 cm cecal mass, mesenteric lymph nodes, multiple metastases to liver, mediastinal and hilar lymph nodes, likely pulmonary edema Biopsies taken of cecal mass Oncology consult-rec GS consult GS rec removal of mass and port placement Rt hemicolectomy w/LN dissection, robotic small bowel resection due to involved small bowel, segment 5 liver resection and port placed done on 10/20 Acute on chronic anemia Iron deficiency anemia Hemoglobin 5.5 down from 9.2(01/2022) Patient currently getting 2 units of PRBC transfused Guaiac neg Ferritin low GI consulted, recommend colonoscopy and EGD Patient on Protonix IV 40 mg twice daily EGD on 10/19 with normal mucosa Colonoscopy on 10/19 with 6 cm mass in cecum-likely cause of bleeding Hb stable Acute respiratory failure with hypoxia Acute pulmonary edema, CHF ruled out Patient notes shortness of breath for 2 years BNP of 700-WNL for age Chest x-ray with multiple lung nodules, the largest of which was approximately 5 cm Likely secondary to multiple lung metastases as well as pulmonary edema Will give Lasix IV x 2 doses Required HHF post-op IS, lasix 20mg q8 hours x 3 and monitor Lactic acidosis Initial 3.1 trend with fluids to 1.1 Likely secondary to bleed Type 2 diabetes Patient takes Actos and Amaryl at home Continue Sliding scale while here Dyslipidemia Continue atorvastatin while here. Patient takes Crestor 10 mg daily at home Hypertension Blood pressure on the low normal side. Consider restarting lisinopril/hydrochlorothiazide if BP increases BRYCE Gets cpap at night Continue while here Obesity Discharge Planning Medically Stable for Discharge Date: 10/22 Patient requires continued hospitalization due to: Investigation of multiple metastasis, oncology consult, respiratory failure Discharge Location: Home Quality Measures DVT Prophylaxis: SCDs Pierce Catheter: absent Code Status full Primary Contact Information Subjective Pt doing well post-op. Pain 09/05. Has HHF on. Denies ROS. Still not passing gas or having stool Objective BP (!) 147/60 (BP Location: Right arm) Pulse 81 Temp 97.8 F (36.6 C) (Oral) Resp 16 Ht 5' 7 Wt 104.3 kg (230 lb) SpO2 91% BMI 36.02 kg/m Physical Examination General Appearance: alert; acute on chronically ill appearing; in no acute distress HEENT: Head- normocephalic; Eyes- EOMI, sclera anicteric; Throat- mucous membranes moist Cardiovascular: regular rate and rhythm; normal S1, S2; no murmurs, rubs, clicks or gallops; peripheral edema absent Respiratory: Diminished breath sounds bilaterally; on heated high flow Abdomen: Protuberant, soft, mildly tender, mildly distended, hypoactive bs, wound dressing c/d/i Neurological: oriented x 3; normal speech; no focal findings or movement disorder noted Musculoskeletal: no significant deformity or tenderness to palpation Skin: normal coloration Psych: normal mood and affect * Aixa Gamez, AAKASH - 10/21/2023 8:27 PM EDT [facility] POST-OP CHECK Mr. Dipti Sierra is a 77 y.o. male who is - POD#1 ESOPHAGOGASTRODUODENOSCOPY on 10/20/[address] Rojas - POD#1 COLONOSCOPY on 10/20/[address] Rojas - POD#0 COLECTOMY RIGHT ROBOTIC XI on 10/21/[address] Hall - POD#0 INSERTION SUBCUTANEOUS PORT on 10/21/[address] Hall Procedure without complications. Ihave evaluated the patient in the immediate post op period. Assessment and Plan: Mass of cecum Acute Respiratory Failure Assessment & Plan POD # 0 from robotic right colectomy, central mesenteric lymph node dissection, SBR, liver biopsy, and port placement. Pre-op anemia with 3 unit PRBC administered 10/18. EBL 150 ml - post op hgb 8.7, no tachycardia, however is hypoxic on 6L NC - Q 8 hour H/H - Cpap at HS if able to tolerate. IS at bedside. - NG tube- ILWS - NPO, MIVF Acute Respiratory Failure Assessment & Plan +4.5L since admission Obtain strict I&O On 6L NC currenly satting 86-89%, dropped to the 60s earlier per nursing, start [facility] CXR this evening with vascular congestion, likely worsening pulmonary edema - given findings, will order a 1x dose of lasix 40mg IV - decrease LR to 50ml/hr - echo with EF 58% Further treatment per primary Temp: [97 F (36.1 C)-98.7 F (37.1 C)] 97.6 F (36.4 C) Heart Rate: [65-95] 89 Resp: [13-22] 15 BP: (116-144)/(56-71) 127/71 GENERAL: Appears age appropriate. No acute distress. NEUROLOGICAL: Alert and oriented X 3. Follows commands with extremities x4, equal strength. GCS = 15 CARDIOVASCULAR: Regular rate and rhythm. 2+ pulses radial/DP/PT bilaterally. RESPIRATORY: Lungs, with fine crackles to auscultation bilaterally. Respiratory effort labored withuse of accessory muscles. On 6L NC, satting 89%. ABDOMINAL: Rounded, soft, TTP as expected, nondistended, hypoactive bowel sounds. Multiple lap sites to lower abdomen with surgical glue, lower abdominal incision with indio. GENITOURINARY: Normal genitalia for age without lesion or trauma. MUSCULOSKELETAL: Extremities atraumatic without gross deformity x4. SKIN: Skin warm and dry. Intake/Output Summary (Last 24 hours) at 10/21/20232026 Last data filed at 10/21/2023 1721 Gross per 24 hour Intake 1350 ml Output 150 ml Net 1200 ml * Venessa Nicolas MD - 10/21/2023 4:[address] [facility] [place] PROGRESS NOTE Assessment and Plan Dipti Sierra is a 77 y.o. male patient of Dayami Roe MD with history of DM, HLD, HTNand sleep apnea presents to ED with fatigue and shortness of breath found to have hemoglobin of 5.5down from 11.9 in . Large cecal mass Multiple metastatic lesions Colonoscopy with large cecal mass CT chest abdomen and pelvis with no PE, 6.7 cm cecal mass, mesenteric lymph nodes, multiple metastases to liver, mediastinal and hilar lymph nodes, likely pulmonary edema Biopsies taken of cecal mass Oncology consult-rec GS consult GS rec removal of mass and port placement - done on 10/20 Acute on chronic anemia Iron deficiency anemia Hemoglobin 5.5 down from 9.2(01/2022) Patient currently getting 2 units of PRBC transfused Guaiac neg Ferritin low GI consulted, recommend colonoscopy and EGD Patient on Protonix IV 40 mg twice daily EGD on 10/19 with normal mucosa Colonoscopy on 10/19 with 6 cm mass in cecum-likely cause of bleeding Hb stable Acute respiratory failure with hypoxia Patient notes shortness of breath for 2 years Chest x-ray with multiple lung nodules, the largest of which was approximately 5 cm Likely secondary to multiple lung metastases as well as pulmonary edema Will give Lasix IV x 2 doses Wean oxygen as tolerated Type 2 diabetes Patient takes Actos and Amaryl at home Continue Sliding scale while here Dyslipidemia Continue atorvastatin while here. Patient takes Crestor 10 mg daily at home Hypertension Blood pressure on the low normal side. Consider restarting lisinopril/hydrochlorothiazide if BP increases BRYCE Gets cpap at night Continue while here Discharge Planning Medically Stable for Discharge Date: 10/22 Patient requires continued hospitalization due to: Investigation of multiple metastasis, oncology consult, respiratory failure Discharge Location: Home Quality Measures DVT Prophylaxis: SCDs Pierce Catheter: absent Code Status full Primary Contact Information Subjective Pt doing better today. No bleeding. Feels wheezy. Normally on cpap at night and didn't get it. Objective BP 133/71 Pulse 80 Temp 98 F (36.7 C) (Oral) Resp 18 Ht 5' 7 Wt 104.3 kg (230 lb) VaL686% BMI 36.02 kg/m Physical Examination General Appearance: alert; acute on chronically ill appearing; in no acute distress HEENT: Head- normocephalic; Eyes- EOMI, sclera anicteric; Throat- mucous membranes moist Cardiovascular: regular rate and rhythm; normal S1, S2; no murmurs, rubs, clicks or gallops; peripheral edema absent Respiratory: Diminished breath sounds bilaterally; on nasal cannula Abdomen: Protuberant, soft, non-tender, non-distended Neurological: oriented x 3; normal speech; no focal findings or movement disorder noted Musculoskeletal: no significant deformity or tenderness to palpation Skin: normal coloration Psych: normal mood and affect * Lencho Rodriguez MD - 10/21/2023 9:42 AM EDT 77-year-old male with what appears to be metastatic colorectal cancer has been prepped for surgery that will happen this afternoon talk to the surgeon at length. We will follow the postop time. He will have a partial colectomy and also a port placed today I will see him in about 3 weeks as an outpatient to plan on initiating chemotherapy when he has totally recovered from his operation. his CEA was 42, B12 level of 353 and folic acid level of 13. The cause of his anemia is iron deficiency and the cause of the iron deficiency is a colon tumor in the cecum area. Will follow with you thank you for this consult * April Bailey - 10/20/2023 4:45 PM EDT Spiritual Care Progress Note Completed by: April Bailey Person(s) Present During this Visit: Patient, Daughter Time Spent in Direct Patient Care: 15 Narrative: Sub Prior visited with the patient while rounding on the unit, Mr. Simon was sitting up in bed and his daughter was sitting in a chair. Mr. Simon spoke very little but he did indicate that felt okay, Mr. Simon also stated that he was being discharged, but that he appreciated the visit. Sub Prior provided spiritual and emotional support to the patient and his family. Patients Response to Pastoral Care: Appeared to be well-engaged Planning for Future Visits: PRN 10/20/23 1645 Visit Background Visit With Patient;Daughter Visit By Staff Sub Prior Visit Progression Introduction Visit Requested By Sub Prior Initiated Visit Source Sub Prior Initiated Visit Type Inpatient;Rounding Visit Circumstances and Events Routine Visit Visit Length (minutes) 15 Patient's Response to Pastoral Care Appeared to be well-engaged Visit Planning PRN Spiritual Assessment Not assessed during visit Episcopalian Assessment Not assessed during this visit Family assessment provided? Assessed during this visit Family Assessment Relationship to Patient Daughter April Giraldo [place]iv[place] [address] On-call Sub Prior: * Venessa Nicolas MD - 10/20/2023 10:[address] [facility] [place] PROGRESS NOTE Assessment and Plan Dipti Sierra is a 77 y.o. male patient of Dayami Roe MD with history of DM, HLD, HTNand sleep apnea presents to ED with fatigue and shortness of breath found to have hemoglobin of 5.5down from 11.9 in . Large cecal mass Multiple metastatic lesions Colonoscopy with large cecal mass CT chest abdomen and pelvis with no PE, 6.7 cm cecal mass, mesenteric lymph nodes, multiple metastases to liver, mediastinal and hilar lymph nodes, likely pulmonary edema Biopsies taken of cecal mass Oncology consult Acute on chronic anemia Iron deficiency anemia Hemoglobin 5.5 down from 9.2(01/2022) Patient currently getting 2 units of PRBC transfused Guaiac neg Ferritin low GI consulted, recommend colonoscopy and EGD Patient on Protonix IV 40 mg twice daily EGD on 10/19 with normal mucosa Colonoscopy on 10/19 with 5 to 6 cm mass in cecum-likely cause of bleeding Monitor hemoglobin for now Acute respiratory failure with hypoxia Patient notes shortness of breath for 2 years Chest x-ray with multiple lung nodules, the largest of which was approximately 5 cm Likely secondary to multiple lung metastases as well as pulmonary edema Will give Lasix IV x 2 doses Type 2 diabetes Patient takes Actos and Amaryl at home Continue Sliding scale while here Dyslipidemia Continue atorvastatin while here. Patient takes Crestor 10 mg daily at home Hypertension Blood pressure on the low normal side. Hold lisinopril/hydrochlorothiazide while here Discharge Planning Medically Stable for Discharge Date: 10/22 Patient requires continued hospitalization due to: Investigation of multiple metastasis, oncology consult, respiratory failure Discharge Location: Home Quality Measures DVT Prophylaxis: SCDs Pierce Catheter: absent Code Status full Primary Contact Information Subjective Patient states he has been having trouble breathing for the last 2 years. He has been talking to his doctor about this. He did just see a lung doctor who ordered a chest x-ray as well as pulmonary function test. These were supposed to be scheduled but had not been scheduled yet. Patient states he feels better than when he came in. He denies any melena or blood per rectum Objective BP 128/73 Pulse 79 Temp 98.1 F (36.7 C) (Oral) Resp 18 Ht 5' 7 Wt 104.3 kg (230 lb) SpO2 92% BMI 36.02 kg/m Physical Examination General Appearance: alert; acute on chronically ill appearing; in no acute distress HEENT: Head- normocephalic; Eyes- EOMI, sclera anicteric; Throat- mucous membranes moist Cardiovascular: regular rate and rhythm; normal S1, S2; no murmurs, rubs, clicks or gallops; peripheral edema absent Respiratory: Diminished breath sounds bilaterally; on nasal cannula Abdomen: Protuberant, soft, non-tender, non-distended Neurological: oriented x 3; normal speech; no focal findings or movement disorder noted Musculoskeletal: no significant deformity or tenderness to palpation Skin: normal coloration Psych: normal mood and affect * Liliana Zaldivar RN - 10/19/2023 11:34 AM EDT 10/19/23 1131 Patient Information Source of Information Patient;Children;Significant Other (His son and spouse were also present in the room and contributed to his history.) Primary Caregiver Self Support Systems Spouse/significant other;Children Type of Residence Private residence (Denies any difficulty navigating strairs - remains independent - uses no home medial equipment to assist with ambulation.) Current Home Equipment None Does Patient have a PCP? Yes (Dayami Roe MD [phone]) Interventions Home Health Care (Denies any in home services or the need for assistance.) Mr. Sierra presented to the emergency department with complaints of ongoing and progressive shortness of breath. He denies the use of any home oxygen and was only 83% on room air on arrival. He has been placed on oxygen at 3 liters to maintain his saturation levels. He has a history of hypertension, diabetes mellitus chronic shortness of breath and hyperlipidemia. He is from home where he resides with his spouse. He remains fairly independent and does not use any assistive devices for ambulation. He is a diabetic but does not check his blood sugars, he takes glimepiride at home. I was never told to. He denies any difficulty covering the expense of his medications or his medical care. His spouse did share a concern that his insurance will only pay for 90 s leeping pills a year. Encouraged her to discuss the concern with his PCP. He denies any food insecurity. He denies any current in home services or the need. He has a primary care provider and has [employer]. Care Coordination will continue to follow for possible discharge needs. documented in this [id number] [facility] [place] [facility] Dipti Sierra Admitted: 10/19/2023 Discharge Date: 10/29/23 PCP Handoff Recommended Outpatient Testing CBC, BMP, iron studies Remainder per oncology Results Pending At Discharge [facility] tumor sample testing Clinical Summary Colon cancer with Multiple metastatic lesions S/p right hemicolectomy on 10/21/23 Colonoscopy with large cecal mass CT chest abdomen and pelvis with no PE, 6.7 cm cecal mass, mesenteric lymph nodes, multiple metastases to liver, mediastinal and hilar lymph nodes, likely pulmonary edema Biopsies taken of cecal mass GS rec removal of mass and port placement Rt hemicolectomy w/LN dissection, robotic small bowel resection due to involved small bowel, segment 5 liver resection and port placed done on 10/20 Pain poorly controlled on 10/22 Discontinued Dilaudid IV, changed to oxycodone pain intermittent order set 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 thereafter Had 2 large bowel movements on 10/26 a.m. Tolerating liquids now, will be advanced to regular diet per surgery 10/27 Continue Reglan and will scale back bowel regimen Tolerating diet on 10/28, plan for discharge Encouraged ambulation Acute on chronic anemia Iron deficiency anemia Hemoglobin 5.5 down from 9.2(01/2022) Patient currently getting 2 units of PRBC transfused Guaiac neg Ferritin low GI consulted, recommend colonoscopy and EGD Patient on Protonix IV 40 mg twice daily EGD on 10/19 with normal mucosa Colonoscopy on 10/19 with 6 cm mass in cecum-likely cause of bleeding Hgb remaining stable Acute respiratory failure with hypoxia Acute pulmonary edema, CHF ruled out Patient notes shortness of breath for 2 years BNP of 700-WNL for age Chest x-ray with multiple lung nodules, the largest of which was approximately 5 cm Likely secondary to multiple lung metastases as well as pulmonary edema S/P IV lasix x 2 doses Required HHF post-op IS, lasix 20mg q8 hours x 3 and monitor Added Hycodan, Mucinex, PEP Presently remaining stable on 3 L nasal cannula, wean as able Home O2 eval prior to discharge Lactic acidosis Initial 3.1 trend with fluids to 1.1 Likely secondary to bleed Type 2 diabetes Patient takes Actos and Amaryl at home Continue Sliding scale while here BG high on 10/27, will give one time dose of Lantus 5u Dyslipidemia Continue atorvastatin while here. Patient takes Crestor 10 mg daily at home Hypertension Blood pressure on the low normal side. Patient's home regimen includes lisinopril-hydrochlorothiazide, however it is mentioned that he has a history of angioedema with lisinopril Start hydrochlorothiazide 12.5 mg alone on 10/26 BP now much better Consider adding losartan if needed BRYCE Gets cpap at night Continue while here Obesity Discharge Medications Discharge Medications New Medications Details hydroCHLOROthiazide 12.5 MG tablet Start taking on: October 30, 2023 Take 1 (one) tablet (12.5 mg total) by mouth daily Start: 10/30/23. Quantity: 30 tablet naloxone 4 mg/actuation Dilkon Commonly known as: NARCAN Administer 1 spray into one nostril for known or suspected opioid overdose. If patient worsens or does not respond, may repeat in 2-3 minutes. . Quantity: 2 each oxyCODONE 5 MG immediate release tablet Commonly known as: ROXICODONE Take 1 (one) tablet (5 mg total) by mouth every 4 (four) hours as needed (may repeat) for pain . Quantity: 15 tablet senna-docusate 8.6-50 mg Commonly known as: SENNA-S Take 1 (one) tablet by mouth 2 (two) times a day . Quantity: 60 tablet Medications To Continue Details acetaminophen 500 MG tablet Commonly known as: TYLENOL Take 1 (one) tablet (500 mg total) by mouth as needed for pain . aspirin 81 MG EC tablet Take 1 (one) tablet (81 mg total) by mouth every morning . azelastine 137 mcg (0.1 %) nasal spray Commonly known as: ASTELIN 2 (two) sprays by Each Nare route 2 (two) times a day . Kia Back and Body 500-32.5 mg Tab Generic drug: aspirin-caffeine Take 1 tablet by mouth as needed . famotidine 20 MG tablet Commonly known as: PEPCID Take 1 (one) tablet (20 mg total) by mouth 2 (two) times a day for 10 days . Quantity: 20 tablet glimepiride 4 MG tablet Commonly known as: AMARYL Take 1 Unspecified by mouth daily . omeprazole 40 MG capsule Commonly known as: PRILOSEC Take 1 (one) capsule (40 mg total) by mouth daily with dinner . pioglitazone 30 MG tablet Commonly known as: ACTOS Take 1 (one) tablet (30 mg total) by mouth every morning . potassium chloride 10 MEQ CR tablet Take 1 Unspecified by mouth . rosuvastatin 10 MG tablet Commonly know (more content not included)...[facility]05-02-2024 Hospital course Narrative* Arias Franco, - 10/29/2023 1:[address] [facility] [place] DISCHARGE SUMMARY -- [facility] Dipti Sierra Admitted: 10/19/2023 Discharge Date: 10/29/23 PCP Handoff Recommended Outpatient Testing CBC, BMP, iron studies Remainder per oncology Results Pending At Discharge [facility] tumor sample testing Clinical Summary Colon cancer with Multiple metastatic lesions S/p right hemicolectomy on 10/21/23 Colonoscopy with large cecal mass CT chest abdomen and pelvis with no PE, 6.7 cm cecal mass, mesenteric lymph nodes, multiple metastases to liver, mediastinal and hilar lymph nodes, likely pulmonary edema Biopsies taken of cecal mass GS rec removal of mass and port placement Rt hemicolectomy w/LN dissection, robotic small bowel resection due to involved small bowel, segment 5 liver resection and port placed done on 10/20 Pain poorly controlled on 10/22 Discontinued Dilaudid IV, changed to oxycodone pain intermittent order set 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 thereafter Had 2 large bowel movements on 10/26 a.m. Tolerating liquids now, will be advanced to regular diet per surgery 10/27 Continue Reglan and will scale back bowel regimen Tolerating diet on 10/28, plan for discharge Encouraged ambulation Acute on chronic anemia Iron deficiency anemia Hemoglobin 5.5 down from 9.2(01/2022) Patient currently getting 2 units of PRBC transfused Guaiac neg Ferritin low GI consulted, recommend colonoscopy and EGD Patient on Protonix IV 40 mg twice daily EGD on 10/19 with normal mucosa Colonoscopy on 10/19 with 6 cm mass in cecum-likely cause of bleeding Hgb remaining stable Acute respiratory failure with hypoxia Acute pulmonary edema, CHF ruled out Patient notes shortness of breath for 2 years BNP of 700-WNL for age Chest x-ray with multiple lung nodules, the largest of which was approximately 5 cm Likely secondary to multiple lung metastases as well as pulmonary edema S/P IV lasix x 2 doses Required HHF post-op IS, lasix 20mg q8 hours x 3 and monitor Added Hycodan, Mucinex, PEP Presently remaining stable on 3 L nasal cannula, wean as able Home O2 eval prior to discharge Lactic acidosis Initial 3.1 trend with fluids to 1.1 Likely secondary to bleed Type 2 diabetes Patient takes Actos and Amaryl at home Continue Sliding scale while here BG high on 10/27, will give one time dose of Lantus 5u Dyslipidemia Continue atorvastatin while here. Patient takes Crestor 10 mg daily at home Hypertension Blood pressure on the low normal side. Patient's home regimen includes lisinopril-hydrochlorothiazide, however it is mentioned that he hasa history of angioedema with lisinopril Start hydrochlorothiazide 12.5 mg alone on 10/26 BP now much better Consider adding losartan if needed BRYCE Gets cpap at night Continue while here Obesity Discharge Medications Discharge Medications New Medications Details hydroCHLOROthiazide 12.5 MG tablet Start taking on: October 30, 2023 Take 1 (one) tablet (12.5 mg total) by mouth daily Start: 10/30/23. Quantity: 30 tablet naloxone 4 mg/actuation Dilkon Commonly known as: NARCAN Administer 1 spray into one nostril for known or suspected opioid overdose. If patient worsens or does not respond, may repeat in 2-3 minutes. . Quantity: 2 each oxyCODONE 5 MG immediate release tablet Commonly known as: ROXICODONE Take 1 (one) tablet (5 mg total) by mouth every 4 (four) hours as needed (may repeat) for pain . Quantity: 15 tablet senna-docusate 8.6-50 mg Commonly known as: SENNA-S Take 1 (one) tablet by mouth 2 (two) times a day . Quantity: 60 tablet Medications To Continue Details acetaminophen 500 MG tablet Commonly known as: TYLENOL Take 1 (one) tablet (500 mg total) by mouth as needed for pain . aspirin 81 MG EC tablet Take 1 (one) tablet (81 mg total) by mouth every morning . azelastine 137 mcg (0.1 %) nasal spray Commonly known as: ASTELIN 2 (two) sprays by Each Nare route 2 (two) times a day . Kia Back and Body 500-32.5 mg Tab Generic drug: aspirin-caffeine Take 1 tablet by mouth as needed . famotidine 20 MG tablet Commonly known as: PEPCID Take 1 (one) tablet (20 mg total) by mouth 2 (two) times a day for 10 days . Quantity: 20 tablet glimepiride 4 MG tablet Commonly known as: AMARYL Take 1 Unspecified by mouth daily . omeprazole 40 MG capsule Commonly known as: PRILOSEC Take 1 (one) capsule (40 mg total) by mouth daily with dinner . pioglitazone 30 MG tablet Commonly known as: ACTOS Take 1 (one) tablet (30 mg total) by mouth every morning . potassium chloride 10 MEQ CR tablet Take 1 Unspecified by mouth . rosuvastatin 10 MG tablet Commonly known as: CRESTOR Take 1 (one) tablet (10 mg total) by mouth every morning . traZODone 50 MG tablet Commonly known as: DESYREL Take 0.5 (one-half) tablet (25 mg total) by mouth nightly . zolpidem 10 mg tablet Commonly known as: AMBIEN Take 1 (one) tablet (10 mg total) by mouth nightly . Stopped Medications lisinopriL-hydrochlorothiazide 10-12.5 mg per tablet Commonly known as: SABINEZESTORETIC Physician(s) Follow Up: Dayami Roe MD [id number] [facility] [phone] Schedule an appointment as soon as possible for a visit in 2 week(s) for a hospital follow-up Austen Hall MD [address] [id number] Schedule an appointment as soon as possible for a visit in 1 week(s) for staple removal and postop follow-up Lencho Rodriguez MD [address] [phone] Schedule an appointment as soon as possible for a visit in 2 week(s) Condition at Discharge: Stable Disposition: Home with Home Health I reviewed discharge recommendations with the patient in person. Patient instructions, including activity, were given to the patient/family at discharge. On day of discharge I saw Dipti Sierra and spent: > 30 minutes on discharge. Completed by: Arias Franco DO on 10/29/23, 1:06 PM documented in this [id number] Miscellaneous Notes* Plan of Care - Jannet Perez RN - 10/29/2023 10:40 AM EDT Problem: Actual or potential alteration in health Goal: Absence of healthcare acquired conditions Outcome: Met Problem: Pain Goal: Reduced pain sensation Outcome: Met Goal: Control of acute pain to acceptable level Outcome: Met Goal: Able to cope with pain Outcome: Met Goal: Able to achieve maximum level of physical functioning Outcome: Met Goal: Able to achieve maximum level of psychosocial functioning Outcome: Met Problem: Pressure Injury, Risk of Goal: Absence of pressure injury Outcome: Met * Plan of Care - Vladimir Dias RN - 10/29/2023 6:09 AM EDT Problem: Actual or potential alteration in health Goal: Absence of healthcare acquired conditions Outcome: Partially Met Problem: Pain Goal: Reduced pain sensation Outcome: Partially Met Goal: Control of acute pain to acceptable level Outcome: Partially Met Goal: Able to cope with pain Outcome: Partially Met Goal: Able to achieve maximum level of physical functioning Outcome: Partially Met Goal: Able to achieve maximum level of psychosocial functioning Outcome: Partially Met Problem: Pressure Injury, Risk of Goal: Absence of pressure injury Outcome: Partially Met Problem: Falls, Risk of Goal: Absence of falls Outcome: Partially Met Goal: Absence of physical injury Outcome: Partially Met * Plan of Care - Liliana Weiss RN - 10/28/2023 2:53 PM EDT Problem: Actual or potential alteration in health Goal: Absence of healthcare acquired conditions Outcome: Partially Met Problem: Pain Goal: Reduced pain sensation Outcome: Partially Met Goal: Control of acute pain to acceptable level Outcome: Partially Met Goal: Able to cope with pain Outcome: Partially Met Goal: Able to achieve maximum level of physical functioning Outcome: Partially Met Goal: Able to achieve maximum level of psychosocial functioning Outcome: Partially Met Problem: Pressure Injury, Risk of Goal: Absence of pressure injury Outcome: Partially Met Problem: Falls, Risk of Goal: Absence of falls Outcome: Partially Met Goal: Absence of physical injury Outcome: Partially Met * Plan of Care - Swapnil Pineda RN - 10/26/2023 7:26 AM EDT Problem: Actual or potential alteration in health Goal: Absence of healthcare acquired conditions Outcome: Partially Met Goal: Knowledge of Interdisciplinary Plan of Care Outcome: Completed Goal: Knowledge of Enviroment Outcome: Completed Problem: Pain Goal: Reduced pain sensation Outcome: Partially Met Goal: Control of acute pain to acceptable level Outcome: Partially Met Goal: Able to cope with pain Outcome: Partially Met Goal: Able to achieve maximum level of physical functioning Outcome: Partially Met Goal: Able to achieve maximum level of psychosocial functioning Outcome: Partially Met Problem: Pressure Injury, Risk of Goal: Absence of pressure injury Outcome: Partially Met Problem: Falls, Risk of Goal: Absence of falls Outcome: Partially Met Goal: Absence of physical injury Outcome: Partially Met * Plan of Care - Jannet Perez RN - 2023 10:37 AM EDT Problem: Actual or potential alteration in health Goal: Absence of healthcare acquired conditions Outcome: Met Goal: Knowledge of Interdisciplinary Plan of Care Outcome: Met Goal: Knowledge of Enviroment Outcome: Met Problem: Pain Goal: Reduced pain sensation Outcome: Met Goal: Control of acute pain to acceptable level Outcome: Met Goal: Able to cope with pain Outcome: Met Goal: Able to achieve maximum level of physical functioning Outcome: Met Goal: Able to achieve maximum level of psychosocial functioning Outcome: Met Problem: Pressure Injury, Risk of Goal: Absence of pressure injury Outcome: Met Problem: Falls, Risk of Goal: Absence of falls Outcome: Met * Plan of Care - Dayana Bernal RN - 2023 12:23 AM EDT Problem: Actual or potential alteration in health Goal: Absence of healthcare acquired conditions Outcome: Partially Met Goal: Knowledge of Interdisciplinary Plan of Care Outcome: Partially Met Goal: Knowledge of Enviroment Outcome: Partially Met Problem: Pain Goal: Reduced pain sensation Outcome: Partially Met Goal: Control of acute pain to acceptable level Outcome: Partially Met Goal: Able to cope with pain Outcome: Partially Met Goal: Able to achieve maximum level of physical functioning Outcome: Partially Met Goal: Able to achieve maximum level of psychosocial functioning Outcome: Partially Met Problem: Pressure Injury, Risk of Goal: Absence of pressure injury Outcome: Partially Met Problem: Falls, Risk of Goal: Absence of falls Outcome: Partially Met Goal: Absence of physical injury Outcome: Partially Met * Plan of Care - Jannet Perez RN - 10/24/2023 10:40 AM EDT Problem: Actual or potential alteration in health Goal: Absence of healthcare acquired conditions Outcome: Met Goal: Knowledge of Interdisciplinary Plan of Care Outcome: Met Goal: Knowledge of Enviroment Outcome: Met Problem: Pain Goal: Reduced pain sensation Outcome: Met Goal: Control of acute pain to acceptable level Outcome: Met Goal: Able to cope with pain Outcome: Met Goal: Able to achieve maximum level of physical functioning Outcome: Met Goal: Able to achieve maximum level of psychosocial functioning Outcome: Met Problem: Pressure Injury, Risk of Goal: Absence of pressure injury Outcome: Met Problem: Falls, Risk of Goal: Absence of falls Outcome: Met Goal: Absence of physical injury Outcome: Met * Plan of Care - Louisa Kahn RN - 10/24/2023 6:10 AM EDT Problem: Actual or potential alteration in health Goal: Absence of healthcare acquired conditions Outcome: Partially Met Goal: Knowledge of Interdisciplinary Plan of Care Outcome: Partially Met Goal: Knowledge of Enviroment Outcome: Partially Met Problem: Pain Goal: Reduced pain sensation Outcome: Partially Met Goal: Control of acute pain to acceptable level Outcome: Partially Met Goal: Able to cope with pain Outcome: Partially Met Goal: Able to achieve maximum level of physical functioning Outcome: Partially Met Goal: Able to achieve maximum level of psychosocial functioning Outcome: Partially Met Problem: Pressure Injury, Risk of Goal: Absence of pressure injury Outcome: Partially Met * Plan of Care - Kenroy Garcia RN - 10/23/2023 3:38 PM EDT Problem: Actual or potential alteration in health Goal: Absence of healthcare acquired conditions Outcome: Met Goal: Knowledge of Interdisciplinary Plan of Care Outcome: Met Goal: Knowledge of Enviroment Outcome: Met Problem: Pressure Injury, Risk of Goal: Absence of pressure injury Outcome: Met Problem: Pain Goal: Reduced pain sensation Outcome: Partially Met Goal: Control of acute pain to acceptable level Outcome: Partially Met Goal: Able to cope with pain Outcome: Partially Met Goal: Able to achieve maximum level of physical functioning Outcome: Partially Met Goal: Able to achieve maximum level of psychosocial functioning Outcome: Partially Met * Plan of Care - Sandi Kendrick RN - 10/22/2023 9:14 AM EDT Problem: Actual or potential alteration in health Goal: Absence of healthcare acquired conditions Outcome: Partially Met Goal: Knowledge of Interdisciplinary Plan of Care Outcome: Partially Met Goal: Knowledge of Enviroment Outcome: Partially Met Problem: Pain Goal: Reduced pain sensation Outcome: Partially Met Goal: Control of acute pain to acceptable level Outcome: Partially Met Goal: Able to cope with pain Outcome: Partially Met Goal: Able to achieve maximum level of physical functioning Outcome: Partially Met Goal: Able to achieve maximum level of psychosocial functioning Outcome: Partially Met * CDI Query - Venessa Nicolas MD - 10/22/2023 6:56 AM EDT Noted monitoring of lactic acid. Clinical Indicators: Per lab: 10/18 lactic acid 3.1 and 1.1 Per orders: PRBC Per progress notes: Acute respiratory failure with hypoxia, anemia Please document the corresponding diagnosis reflective of these findings. Please include the present on admission status if applicable. For Example: Excessive lacticemia, POA now resolved Elevated lactic acid is clinically undetermined Other (please specify) Unable to determine Thank you, Glenny BIRCHN, RN Clinical Medical Laboratory Specialist [phone] (cell) After business hours you may contact Kenna Russo at [phone] (Weekdays until 10 PM and weekends 8 AM -10 PM) * Plan of Care - Dayana Bernal RN - 10/22/2023 3:42 AM EDT Problem: Actual or potential alteration in health Goal: Absence of healthcare acquired conditions Outcome: Partially Met Goal: Knowledge of Interdisciplinary Plan of Care Outcome: Partially Met Goal: Knowledge of Enviroment Outcome: Partially Met Problem: Pain Goal: Reduced pain sensation Outcome: Partially Met Goal: Control of acute pain to acceptable level Outcome: Partially Met Goal: Able to cope with pain Outcome: Partially Met Goal: Able to achieve maximum level of physical functioning Outcome: Partially Met Goal: Able to achieve maximum level of psychosocial functioning Outcome: Partially Met * Assessment & Plan Note - Sherron Browne CNP - 10/21/2023 8:08 PM EDT Associated Problem(s): Mass of cecum POD # 0 from robotic right colectomy, central mesenteric lymph node dissection, SBR, liver biopsy, and port placement. Pre-op anemia with 3 unit PRBC administered 10/18. EBL 150 ml -post op hgb 8.7, no tachycardia, VS stable. 6L NC -Q 8 hour H/H -Cpap at HS. IS to bedside. -NG tube- ILWS -NPO, MIVF * Plan of Care - Kenroy Garcia, ALESSANDRA - 10/21/2023 6:38 PM EDT Problem: Actual or potential alteration in health Goal: Absence of healthcare acquired conditions Outcome: Met Goal: Knowledge of Interdisciplinary Plan of Care Outcome: Met Goal: Knowledge of Enviroment Outcome: Met * CDI Query - Venessa Nicolas MD - 10/21/2023 5:52 PM EDT Noted documentation of pulmonary edema. Clinical Indicators: Per progress notes: CT chest abdomen and pelvis..... likely pulmonary edema Per 10/20 Echo: Left ventricular systolic function is normal with an ejection fraction 58 % Per HEATHER: IV lasix Per orders: 3 units PRBC since admission Please specify the acuity of the pulmonary edema and if related to heart failure. For Example: Acute pulmonary edema due to fluid overload, not related heart failure Acute pulmonary edema, CHF ruled out Pulmonary edema (please further specify) Other (please specify) Unable to determine Thank you, Glenny BIRCHN, RN Clinical Medical Laboratory Specialist [phone] (cell) After business hours you may contact Kenna Russo at [phone] (Weekdays until 10 PM and weekends 8 AM - 10 PM) * CDI Query - Venessa Nicolas MD - 10/21/2023 5:38 PM EDT 10/21/23 Addendum: Thank you for looking at this query; unable to find a response. Please respond in the progress notes. Noted BMI of 36. Weight: 230 # Height: 5'7'' Clinical Indicators: PMHX: Type 2 diabetes, Dyslipidemia, Hypertension, BRYCE Please provide an associated diagnosis related to the abnormal BMI. For Example: Obesity Overweight BMI is not clinically significant Other (please specify) Unable to determine Thank you, Glenny CANO, RN Clinical Medical Laboratory Specialist [phone] (cell) After business hours you may contact Kenna Russo at [phone] (Weekdays until 10 PM and weekends 8 AM - 10 PM) * Brief Op Note - Austen Hall MD - 10/21/2023 5:18 PM EDT Brief Post Operative Note Patient Name: Dipti Sierra : 1945 (77 y.o.) Date of Service: 10/21/2023 CSN: [id number] Procedure(s): COLECTOMY RIGHT ROBOTIC XI AND SMALL BOWEL RESECTION WITH LYMPH NODE DISSECTION AND LIVER BIOPSY INSERTION SUBCUTANEOUS PORT Pre-Operative Diagnoses: * Cecal mass suspected colon cancer Post-Operative Diagnoses: * Same as Pre-Op Diagnosis Surgeon(s) and Role: * Austen Hall MD - Primary Anesthesiologist: Melissa Pereira MD ICEBOX MAN: Ty Betancourt CRNA Anesthesiologist Business Analyst Intern: Niles Chapman AA Supervisor Communications And Signals: Tiffanie Reese RN Cleaning Professional: Mckayla Mancilla TECHNOLOGIST Supervisor Communications And Signals Relief: Brunilda Miranda RN Scrub Person: Stefania Guerrier RN Electronics Warfare Technician: Germain Henderson PSA Operative findings: Tumor appears to be involving the anterior abdominal wall and a segment of small bowel. This was all able to be removed en bloc. Superficial liver lesions seen in segment V of theliver so wedge biopsy performed. Intra and immediate post-operative complications: none Type of anesthesia used: General Estimated blood loss: 150 mL Estimated urine output: Specimen(s): ID Type Source Tests Collected by Time Destination A : liver biopsy out of body at 1602 Biopsy Liver, Medical TISSUE EXAM Austen Hall MD 10/21/2023 1556 B : terminal ileum, right colon, mesentary and portion of small bowel out of body at 1620 Tissue Colon, Specify Distance TISSUE EXAM Austen Hall MD 10/21/2023 1304 Implant(s): Implant Name Type Inv. Item Serial No. Pulley Worker Lot No. LRB No. Used Action PORT 8FR POWER ISP ATTACHABLE SINGLE LUMEN - SNA PORT 8FR POWER ISP ATTACHABLE SINGLE LUMEN NA PUJA [id number] Left 1 Implanted Drain(s): Urethral Catheter Latex 16 Fr. (Active) Wound(s): Wound 10/21/23 x5 trocar sites Surgical Wound Abdomen LUQ (Active) Wound Closure Sutures;[place] 10/19/23 0001 Wound 10/21/23 1 Surgical Wound Abdomen Lower;Medial (Active) Wound Closure Sutures;[place] 10/19/23 0001 Wound 10/21/23 1 Surgical Wound Clavicle Left (Active) Wound Closure Sutures;Surgical Adhesive 10/19/23 0001 Austen Hall MD 10/21/2023 5:18 PM * Quick Note - Clementina Wilson RN - 10/21/2023 1:18 PM EDT Charting of SN Eulalia Hardy reviewed * Op Note - Austen Hall MD - 10/21/2023 12:47 PM EDT DIPTI SIERRA [id number] 1945 DATE 10/21/2023 OPERATIVE REPORT SURGEON AUSTEN HALL MD PREOPERATIVE DIAGNOSIS 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 PROCEDURES 1. Robotic right hemicolectomy with central mesenteric lymph node dissection. 2. Robotic small bowel resection. 3. Robotic segment 5 liver wedge resection. 4. Left-sided subclavian Idqhss-D-Alup placement with fluoroscopic guidance. ANESTHESIA General endotracheal. ESTIMATED BLOOD LOSS 150 cc. SPECIMENS 1. Terminal ileum, right colon mesentery, and associated segment of small bowel. 2. Liver biopsy. COMPLICATIONS None apparent. Colon resection Operation performed with curative intent? No Tumor location: Cecum Extent of colon and vascular resection: Right hemicolectomy - ileocolic, right colic (if present) HISTORY OF PRESENT ILLNESS Patient is a 77-year-old male, who recently presented with iron- deficiency anemia. He underwent workup and was found to have a cecal mass. Further imaging demonstrates multiple liver and lung nodules concerning for stage IV metastatic disease. Oncology met with the patient and are talking about chemotherapy, but given the patient's size of the mass and the fact that he came in with the bleeding, there is concern about the risk of bleeding and potential perforation as well as obstruction developing. As such it was discussed with the patient to proceed with the resection. I discussed with the oncologist and all are in agreement. DESCRIPTION OF PROCEDURE Patient was brought to the operating room. General endotracheal anesthesia was induced. SCDs were on and functioning. He received preoperative antibiotics. Pierce catheter was placed by the nursing staff with return of clear yellow urine. Abdomen was prepped and draped in the usual sterile manner bottle. Bilateral arms were tucked. Time- out was performed to confirm correct patient and procedure. Anesthetized skin and subcutaneous tissue in the left upper quadrant. A transverse incision was made in the left upper quadrant. Direct entry to the peritoneal cavity was obtained using the Optiview obturator. Abdomen insufflated with carbon dioxide. Visual inspection confirms no injuries from the entrance. There was no evidence of diffuse carcinomatosis, but there is the cecum stuck to the right lower quadrant of the abdominal wall. I placed 3 additional robotic trocars in a line extending down to the left lower quadrant. Under direct visualization the 8 mm assist trocar was then placed in the left upper quadrant. The patient was rotated, slight Trendelenburg and right side up. The robot was then docked. I began taking the omentum, trying to pull this out of the pelvis, but it is clearly stuck to the cecum. A segment of the omentum was left en bloc with the cecal mass. I then amputate the omentum off and flipped this into the upper abdomen. I then began taking the omentum off the hepatic flexure of the colon. Further inspection demonstrated that there was a loop of small bowel that appears to be potentially invaded by this cecal mass as well as the right lower quadrant abdominal wall. I was able to remove both the segment of small bowel and a portion of the abdominal wall en bloc with the specimen as well, taking a wedge of the peritoneum using electrocautery. I ran the bowel and, unfortunately, it is not the terminal ileum that is involved, it is actually midportion of the small bowel with at least 100 cm between the terminal ileum and this segment of small bowel. As such, I had to perform a separate small bowel resection. I made windows in the mesentery, both proximal and distal to the involvement and divided the bowel using the robotic MANJU 60 mm stapler with blue loads. Intervening mesentery was then taken down using the vessel sealer. This allowed me to then rotate the small bowel away from the right colon mesentery. I began dividing the attachments of the hepatic flexure using the vessel sealer, dividing out the avascular plane between the stomach and duodenum and the hepatic flexure of the colon. I then continued my dissection down along the ascending colon toward the cecum, again working in the avascular plane between the retroperitoneum and the colon. I took this down to the level of the cecum. I now identified the terminal ileum and divided the terminal ileum using a robotic MANJU 60 mm with a blue load and began taking down the mesentery to the terminal ileum toward the colonic mesentery using the vessel sealer. Now I tented up the mesentery and I could identify the ileocolic pedicle. The mesentery was scored and the ileocolic vessels were isolated out individually. They were clipped proximally and divided distally using the vessel sealer. I then continued my division taking the ascending colon ff the retroperitoneum, dividing in the avascular plane, connecting it to my previous lateral dissection. I then continued dissecting inferiorly toward the level of the cecum and hepatic flexure. Finally then I connected the mesenteric dissection to my previous terminal ileum dissection using the vessel sealer. Now I began dividing the terminal ileum to the hepatic flexure of the colon using the vessel sealer and again isolated this out, and 1 firing of the MANJU 60 mm stapler with the blue load completely removed the right colon segment along with the en bloc resection specimens. This was placed in the upper abdomen. ICG was given at this time to assess the perfusion. There was a 2 cm segment of the terminal ileum that was not perfusing as well as I would like, so this was taken off using 1 additional firing of the stapler. A [id number] isoperistaltic anastomosis was then created using the robotic MANJU 60 mm stapler with a blue load, and the common enterotomy was closed using a 2-0 absorbable V-Loc suture. When the defect was completely closed. It was further imbricated upon itself taking seromuscular bites. Anastomosis was then placed in the right upper quadrant. I was able to align the antimesenteric borders of the small bowel segment and a [id number] antiperistaltic anastomosis was able to be created. I amputated the previous staple lines using the vessel sealer and then the common enterotomy was closed using 1 final firing of the robotic MANJU 60 mm stapler with a blue load. The anastomotic crotch stitch was placed using a 2-0 silk suture to take tension off the anastomosis, and prior to performing the ileocolic anastomosis a suture was placed at the crotch of that anastomosis as well. I was able to visualize in segment 5 of the liver there were superficial nodules adjacent to the gallbladder and I went ahead and performed a wedge resection of these to confirm stage IV malignancy. This was performed using a combination of the vessel sealer and electrocautery and scissors. This specimen was then placed into the finger of a glove and was extracted from the abdominal cavity. Everything was inspected. It was found to be hemostatic. The omentum was draped over the bowel. The specimen was then grasped using a laparoscopic grasper. The robot was then undocked. A Pfannenstiel incision was made. The Devyn retractor was placed within the abdominal cavity and the specimen was withdrawn. Peritoneal defect was then closed using a #1 Vicryl suture. The anterior fascia was closed in a transverse fashion using #1 Prolene x2. Prior to undocking the robot and desufflating the abdomen I did perform a bilateral TAP block using a mixture of Exparel, normal saline and regular Marcaine. With the specimen extracted everything was hemostatic. This skin incisions were then closed using skin indio. Counts were correct x2 prior to completion of the procedure. Now these dressings were taken down and the patient's left neck and chest were re- prepped and draped in the usual sterile fashion. I anesthetized skin and subcutaneous tissue using lidocaine 1% with epinephrine. Subclavian vein was accessed on the 1st attempt with return of venous blood. The syringe was removed and a guidewire was advanced. Fluoroscopy was used to confirm intraluminal position in the superior vena cava tracking down toward the heart. Ectopy was also appreciated on telemetry. An incision was then made using a 15 blade scalpel. I created a subcutaneous pocket on the left chest using electrocautery. The dilator was then advanced over the guidewire. The guidewire was then removed as was the dilator, leaving the tear-away sheath in place. The catheter was flushed with saline. It was then advanced into the venous lumen and fluoroscopy was used to position the distal tip in the superior vena cava. The port was previously flushed and it was then secured to the chest wall using 0 silk sutures x3. The catheter was then cut to the appropriate length and secured to the port and the locking clip was used to secure the tube in place. Sutures were then sequentially tied down and 1 final image demonstrated good positioning of the catheter with no kinking. It was found to flush and withdraw blood easily and then it was flushed with heparin solution. The subcutaneous tissue was then approximated using interrupted 3-0 Vicryl sutures and the skin incisions were then closed using 4-0 Monocryl in a running subcuticular fashion. The chest was then cleansed and dried. Skin glue was applied. Counts were correct for this site x2. The patient subsequently had his Pierce catheter removed, extubated, and transferred to the mobile cart. Upright x-ray was obtained demonstrating good positioning of the catheter and no pneumothorax. The patient was subsequently transferred to the recovery room in stable condition. AUSTEN HALL MD D 10/21/2023 17:46 [id number] T 10/21/2023 22:17 MICHELLE/BLESSINGL cc: DAYAMI ROE MD * Quick Note - Louisa Vaca CNP - 10/21/2023 7:34 AM EDT General Surgery Quick: NPO since midnight. Consent on chart. OR today with Dr. Hall. Associated attestation - Austen Hall MD - 10/21/2023 7:50 AM EDT Patient was seen this am and discussed the plan with him. Discussed case with Dr. Rodriguez last evening. 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 Given the mass and bleeding with plans for chemotherapy, feel it best to perform resection in order to prevent complications of bleeding and perforation associated with the mass and chemotherapy agents. As such we will plan for a robotic right hemicolectomy and port placement today. I discussed the details of the operation rationalerisks and benefits with the patient and he is agreeable to proceed. All questions were answered. Plan to proceed this afternoon. * Plan of Care - Dayana Bernal RN - 10/21/2023 12:45 AM EDT Problem: Actual or potential alteration in health Goal: Absence of healthcare acquired conditions Outcome: Partially Met Goal: Knowledge of Interdisciplinary Plan of Care Outcome: Partially Met Goal: Knowledge of Enviroment Outcome: Partially Met * Quick Note - Juan Tinajero CNP - 10/20/2023 7:43 PM EDT Consent obtained for right colectomy and port placement tomorrow with JV Rodríguez at midnight. * CDI Query - Venessa Nicolas MD - 10/20/2023 6:53 PM EDT Noted BMI of 36. Weight: 230 # Height: 5'7'' Clinical Indicators: PMHX: Type 2 diabetes, Dyslipidemia, Hypertension Please provide an associated diagnosis related to the abnormal BMI. For Example: Obesity Overweight BMI is not clinically significant Other (please specify) Unable to determine Thank you, Glenny CANO, RN Clinical Medical Laboratory Specialist [phone] (cell) After business hours you may contact Kenna Russo at [phone] (Weekdays until 10 PM and weekends 8 AM - 10 PM) * Plan of Care - Kenroy Garcia RN - 10/20/2023 2:58 PM EDT Problem: Actual or potential alteration in health Goal: Absence of healthcare acquired conditions Outcome: Met Goal: Knowledge of Interdisciplinary Plan of Care Outcome: Met Goal: Knowledge of Enviroment Outcome: Met * Brief Op Note - Joe Rojas MD - 10/20/2023 2:10 PM EDT Colonoscopy and EGD done. EGD was normal. Colonoscopy revealed #1 a large mass in the cecum endoscopically consistent with colon cancer biopsies taken. #2 moderate diverticulosis in the sigmoid and descending colon. Follow-up the biopsy result and he will need surgery consult. * Utilization Review - Barbara Landin RN - 10/20/2023 7:16 AM EDT Images from the original note were not included. [facility] Utilization Review Notes HISTORY OF PRESENT ILLNESS: Dipti Sierra is a 77 y.o. male patient of Dayami Roe MD with history of DM, HLD, HTN and sleep apnea presents to ED with fatigue and shortness of breath found to have hemoglobin of 5.5 down from 11.9 in . Patient admits to progressive fatigue and shortness of breath over the past year becoming worse this past few weeks. he denies any melena orred blood per rectum. No nausea vomiting weight loss dysphagia or change in bowel habits. His last colonoscopy was on 07/16/[address] Cano and noted to have 5 mm cecal polyps and diverticulosis.He denies family history of colorectal cancer. Patient denies any fever or chills. Denies any abdominal pain, chest pain syncope or dizziness VITAL SIGNS: 10/19/23 1730 -- 75 24 Abnormal 137/63 90 -- -- 10/19/23 1600 -- 77 19 Abnormal 109/85 91 -- -- 10/19/23 1530 -- 79 22 Abnormal 153/60 Abnormal 94 -- -- 10/19/23 1522 97.5 (36.4) 79 15 148/59 Abnormal 93 Nasal cannula 3 10/19/23 1512 97.5 (36.4) 75 15 150/54 Abnormal 93 Nasal cannula 3 10/19/23 1430 -- 75 22 Abnormal 115/78 90 -- -- 10/19/23 1415 98.2 (36.8) 73 24 Abnormal 128/72 -- -- -- 10/19/23 1157 98.2 (36.8) 75 16 124/76 95 Nasal cannula 3 10/19/23 1142 98 (36.7) 75 16 124/59 Abnormal -- -- -- 10/19/23 1100 -- 73 23 Abnormal -- 94 -- -- SpO2: 3L at 10/19/23 1100 10/19/23 1045 -- 75 24 Abnormal 120/63 93 -- -- 10/19/23 1000 -- 78 22 Abnormal 132/71 94 Nasal cannula 3 10/19/23 0853 -- -- -- 161/82 Abnormal -- -- -- 10/19/23 0851 98.2 (36.8) 93 23 Abnormal -- 95 Nasal cannula 2 EKG: Sinus Rhythm WEIGHT: 104.3kg LABS: (Abnormal / Relevant): Latest Reference Range & Units 10/19/23 08:58 10/19/23 09:15 10/19/23 11:25 10/19/23 14:34 10/19/23 18:42 pH, Venous 7.32 - 7.42 7.36 pCO2, Marco Antonio 41.0 - 51.0 mm Hg 49.1 pO2, Marco Antonio 25 - 40 mm Hg 49 (H) HCO3, Marco Antonio 24.0 - 28.0 mmol/L 27.6 Base Excess, Marco Antonio -2.0 - 2.0 2.0 O2 Sat, Marco Antonio 40.0 - 70.0 % 80.1 (H) Carboxyhemoglobin <=1.5 % of total Hb 4.4 (H) Methemoglobin 0.0 - 2.0 % 1.3 Hemoglobin, Blood Gas 13.5 - 17.5 g/dL 6.1 (CL) O2 Hb No established reference range % 75.5 Sodium 135 - 145 mmol/L 139 141 Potassium 3.5 - 5.1 mmol/L 4.3 4.1 Chloride 98 - 108 mmol/L 102 102 Bicarbonate 21 - 32 mmol/L 26 Anion Gap 10 - 20 mmol/L 15 Glucose 65 - 99 mg/dL 288 (H) 279 (H) BUN 8 - 25 mg/dL 33 (H) Creatinine 0.80 - 1.30 mg/dL 1.24 eGFR >=60 mL/min/1.73 m2 61 BUN/Creatinine Ratio 10.0 - 20.0 26.6 (H) Calcium 8.4 - 10.2 mg/dL 8.2 (L) Ionized Calcium 4.5 - 5.3 mg/dL 4.4 (L) Troponin T <=22 ng/L 26 (CH) 21 22 Delta Difference Troponin T < = -/+ 7 change ng/L -4 Troponin T Interpretation Possible acute cardiac injury. Interp Troponin T Delta Change Delta troponin requires at least 3 hours between collections. Probable non-acute cardiac injury or late presentation of acute injury. NT-Pro BNP 0 - 300 pg/mL 2,593 (H) Iron 40 - 165 mcg/dL 10 (L) 8 (L) Ferritin 30 - 400 ng/mL 19 (L) 18 (L) Iron Saturation 20 - 50 % 3 (L) 3 (L) TIBC 225 - 430 mcg/dL 304 290 Lactic Acid 0.6 - 2.0 mmol/L 3.0 (H) 1.1 WBC 4.50 - 11.00 K/mcL 9.60 RBCs 4.50 - 5.90 M/mcL 3.22 (L) Hemoglobin 13.5 - 17.5 g/dL 5.5 (CL) 5.2 (CL) 6.8 (CL) Hematocrit 41.0 - 53.0 % 22.3 (L) 21.1 (L) 24.7 (L) MCV 80.0 - 100.0 fL 69.3 (L) MCH 26.0 - 34.0 pg 17.1 (L) MCHC 31.0 - 37.0 g/dL 24.7 (L) RDW 11.6 - 14.8 % 23.2 (H) Platelets 150 - 400 K/mcL 359 MPV 9.4 - 12.4 fL 9.7 Neutrophils % 82.4 Lymphocytes % 8.2 Monocytes % 6.5 Eosinophils % 1.5 Basophils % 0.4 IG Percent % 1.00 Neutrophils Abs 1.70 - 7.00 K/mcL 7.91 (H) Lymphocytes Abs 0.90 - 4.00 K/mcL 0.79 (L) Monocytes Abs 0.30 - 0.90 K/mcL 0.62 Eosinophils Abs 0.00 - 0.50 K/mcL 0.14 Basophils Abs 0.00 - 0.30 K/mcL 0.04 IG Absolute 0.00 - 0.30 K/mcL 0.10 Nucleated RBC % 0.5 Nucleated RBC Abs 0.00 - 0.00 K/mcL 0.05 (H) RBC Morphology See Comment Polychromia Few Ovalocytes Few Target Cells Few Protime 11.8 - 14.3 seconds 16.3 (H) INR 0.8 - 1.1 1.3 (H) Hemoglobin A1C 4.2 - 5.6 % 7.6 (H) Estimated Average Glucose 74 - 114 mg/dL 171 (H) IMAGING: (Abnormal / Relevant): Chest xray: Multiple bilateral pulmonary masses measuring up to approximately 5.3 cm likely secondary to metastatic disease. ED TX: Chest xray, EKG, Protonix 40mg IV x1 DX:Acute on chronic anemia ASSESSMENT / PLAN H&P 10/19/23: Dipti Sierra is a 77 y.o. male patient of Dayami Roe MD with history of DM, HLD, HTNand sleep apnea presents to ED with fatigue and shortness of breath found to have hemoglobin of 5.5down from 11.9 in . Assessment and plan Acute on chronic anemia Iron deficiency anemia Hemoglobin 5.5 down from 9.2(01/2022) Patient currently getting 2 units of PRBC transfused Guaiac negative per ED physician. Stool for Hemoccult Ferritin low Patient evaluated by GI, no signs of active bleeding patient probably has slow intermittent GI blood loss Plan for EGD and colonoscopy tomorrow Patient on Protonix IV 40 mg twice daily Type 2 diabetes Patient takes Actos and Amaryl at home Continue Sliding scale while here Dyslipidemia Continue atorvastatin while here. Patient takes Crestor 10 mg daily at home Hypertension Blood pressure on the low normal side. Hold lisinopril/hydrochlorothiazide while here GI consult 10/19/23: Iron deficiency anemia- Ferritin 18 hemoglobin 5.5 down from 9.2 (on 01/2022) Denies melena or red blood per rectum Occult stool was negative Last colonoscopy 07/16/[address] Cano-cecal polyp and diverticulosis No signs of acute bleeding, may have slow intermittent GI blood loss Will need bidirectional endoscopy to further evaluate Plan for EGD and colonoscopy tomorrow Continue to monitor hemoglobin and transfuse for hemoglobin less than 7 Significant event note: Called by the RN that the patient hemoglobin is 6.8 after 2 units of PRBC transfusion. Ordered another 1 unit of PRBC MEDS / ORDERS: Transfuse 3 units PRBC's, Protonix 40mg IV q12h, H&H q8h, cardiac monitoring, Echo, EGD, colonoscopy DISPO: TBD * Plan of Care - Alcira Nair RN - 10/20/2023 5:15 AM EDT Problem: Actual or potential alteration in health Goal: Absence of healthcare acquired conditions Outcome: Partially Met Goal: Knowledge of Interdisciplinary Plan of Care Outcome: Partially Met Goal: Knowledge of Enviroment Outcome: Partially Met * Quick Note - Alcira Nair RN - 10/20/2023 12:00 AM EDT Pt NPO for colonoscopy in AM. Pt verbalized understanding. * Quick Note - Alcira Nair RN - 10/19/2023 9:33 PM EDT Pt started Suprep at this time for colonoscopy in AM. * Plan of Care - Jessica Ballard RN - 10/19/2023 8:34 PM EDT Problem: Actual or potential alteration in health Goal: Absence of healthcare acquired conditions Outcome: Not Met Goal: Knowledge of Interdisciplinary Plan of Care Outcome: Not Met Goal: Knowledge of Enviroment Outcome: Not Met * Quick Note - Alcira Nair RN - 10/19/2023 8:29 PM EDT Pt admitted into room 3712 via WC from ED. VS and assessment completed. Telemetry applied. Orientedto room, call light. No distress noted. * Significant Event - Tarik Carrasquillo DO - 10/19/2023 7:06 PM EDT Called by the RN that the patient hemoglobin is 6.8 after 2 units of PRBC transfusion. Ordered another 1 unit of PRBC * ED Attestation Note - Garrick Caruso MD - 10/19/2023 11:03 AM EDT - Initially the YOUNG had signed up to see this patient. However I decided to see this patient by MYSELF ONLY. As such, an attestation note is not needed. - Please see my primary ED medical record note for complete details. documented in this [id number] [facility] and [facility] DAILY PROGRESS NOTE 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 Tolerating diet. Having bowel function. - ok to discharge from surgical standpoint - f/u with Dr. Hall next week for staple removal. INCIDENTAL FINDINGS: RESOLVED PROBLEMS: SURGERIES/PROCEDURES: Date Operation/Procedure Provider Name 10/21/2023 Robotic right hemicolectomy with central mesenteric lymph node dissection. Robotic small bowel resection. Robotic segment 5 liver wedge resection. Left-sided subclavian [id number] placement with fluoroscopic guidance Dr. Hall TODAY'S ASSESSMENT AND PLAN OF CARE: See above DISPOSITION - per primary CHIEF COMPLAINT/ HPI / PFSHx / EVENTS OVER LAST 24HRS: Up in chair. Tolerating diet. No nausea or vomiting. Having bowel movements. REVIEW OF SYSTEMS: Other than the above items the remainder of the complete ROS is otherwise unchanged from admission. PHYSICAL EXAM: Temp: [97.8 degrees F (36.6 degrees C)-99 degrees F (37.2 degrees C)] 97.8 degrees F (36.6 degrees C) Heart Rate: [78-87] 87 Resp: [18-22] 18 BP: (119-150)/(65-72) 150/70 GENERAL: Appears age appropriate. NEUROLOGICAL: Alert and oriented X 3. No focal neurologic deficits noted. CARDIOVASCULAR: Regular rate and rhythm. 2+ pulses radial/DP/PT bilaterally. RESPIRATORY: Respiratory effort unlabored without use of accessory muscles. On nasal cannula. ABDOMINAL: Rounded, soft, mildly TTP. Incisions well approximated with indio. GENITOURINARY: Normal genitalia for age without lesion or trauma. MUSCULOSKELETAL: Extremities atraumatic without gross deformity x4. SKIN: Skin warm and dry. No intake or output data in the 24 hours ending 10/29/23 0941 IMAGING: No new imaging. LABS Lab Results Component Value Date WBC 4.64 10/29/2023 HGB 8.6 (L) 10/29/2023 HCT 31.5 (L) 10/29/2023 MCV 78.6 (L) 10/29/2023 EXTMCV 89.1 08/20/2017 PLT 300 10/29/2023 RBC 4.01 (L) 10/29/2023 Lab Results Component Value Date GLUCOSE 171 (H) 10/29/2023 CALCIUM 8.5 10/29/2023 NA 138 10/29/2023 K 3.5 10/29/2023 CL 97 (L) 10/29/2023 BUN 13 10/29/2023 CREATININE 0.98 10/29/2023 Lab Results Component Value Date ALT 8 10/20/2023 AST 22 10/20/2023 ALKPHOS 80 10/20/2023 BILITOT 0.7 10/20/2023 DAILY CHECKLIST: *Need for Restraints: na *Need for Urinary Catheter: na *Need for Central Access Devices: port *Stress Ulcer Prophylaxis: protonix *VTE Prophylaxis (Body mass index is 36.02 kg/m ., Estimated Creatinine Clearance: 60 mL/min (by C-G formula based on SCr of 0.98 mg/dL).): lovenox 40 mg daily *Home Medications Reconciled: per primary *Code Status: full code AUTHENTICATED BY LOUISA VACA, ON 10/29/2023 09:45:18[facility]05-01-2024 Consult note* Alcira Guzman RN - 10/28/2023 10:34 AM EDT Unstageable pressure injury identified to the right elbow via the prevalent study. Floor nurse notified of need for assessment, documentation, measurements, orders, and consult for wound care for evaluation and treatment orders, if warranted. * Swapna Caro OTR/Bogdan - 10/27/2023 4:05 PM EDT Occupational Therapy OCCUPATIONAL THERAPY EVALUATION Skilled Therapy Needs After Discharge Are Skilled Therapy Services Needed After Discharge: No DME Recommendation: None Rehab Potential: (N/A; Evaluation Only.) OT Caregiver Readiness Working toward discharge home: Yes OT Caregiver Training: Completed Who was trained?: (Patient) Provided training for: Bed mobility - completed, Dressing - completed, Precautions - completed Caregiver response to training: Verbalizes understanding, Returns demonstration Outcomes Measures Prior Function Daily Activity Raw Score: 24 Prior Function Daily Activity % Impaired: 0% AM-PAC Daily Activity Raw Score: 22 AM-PAC Daily Activity % Impaired: 25.80% Occupational Therapy Assessment The patient's current functional participation deficits are LE dressing, bathing. This reduced independence will limit their life roles of premorbid level individual. The patient's co morbidities do affect patient performance in the above activities and roles. The performance deficits are a result of musculoskeletal, cardiopulmonary impairment(s) in generalized debility, trunk including balance, acitvity tolerance, respiratory capacity, pain. 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 The patient's education level is a state fire marshal, compliance is a state fire marshal, awareness of own capacity and performance is a state fire marshal to return to prior level of function. During the assessment, minimal to moderate modification of task was required and several treatment options were identified in the plan of care. This consultation required expanded review of the medical and therapy history. 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 UE Function: Bilateral UE AROM to WNL; bilateral gross grasp about 5/5; pt has impaired opposition of thumb to 5th digit using R hand; UE MMT not completed d/t pt with abdominal precautions. Activity Tolerance Activity Tolerance: (Using O2 at 4 lpm; no O2 at home SIGHT MOUNTER; SpO2 noted to be 87- 93% when checked during session.) Therapy Precautions Orthotic Devices: No Weight Bearing Status: WFL General Rehab Precautions: Abdominal Activity as Tolerated Cognition Overall Cognitive Status: Within Functional Limits Arousal/Alertness: Appropriate responses to stimuli Orientation Level: Oriented to place, Oriented to time, Oriented to person (Knew birthdate.) Attention: Attends to quiet environment Hearing Status: WFL Social Interaction: WF ADL Grooming: Stand by assist (Cue for thoroughness w/face washing in standing at sink. Combed hair seated in chair w/set-up.) Lower Body Dressing: Stand by assist (Donned/doffed socks at chair level using figure-four strategyat recommendation of therapist to maximize abdominal ease with LB dressing during surgical recovery.) Functional Mobility: Stand by assist (For short distance ambulation w/out AD.) Bed Mobility Not tested; pt sleeps in chair or adjustable bed at home. Functional Transfers Sit to Stand: Independent (Independent w/stand to sit transition at chair.) Mechanical Shop Laborer: (None) (Independent w/dynamic sitting at chair level during sock donning using figure- four strategy; independent w/standing at sink to wash face w/out LOB observed.) Additional Assessment Details Pt encouraged to use built-in shower seat for showering upon discharge to home if he becomes fatigued or SOB with activity exertion. Pt instructed to limit lifting to 10# during recovery from abdominal surgery and to utilize logroll for bed mobility for abdominal protection. Pt does not present with deficits that warrant follow-up OT treatment. (OT will sign off case at this time.) Home Living Obtained Home Living and PLOF info from: Patient Lives With: Spouse, Son (They can assist at home after discharge.) Type of Home: House Home Layout: One level Steps to enter home: Yes Rails to enter home: (Grab bar present to assist self at top step.) Number of stairs to enter home: 3 Bathroom Shower/Tub: Walk-in shower, Main level Bathroom Toilet: Standard, Main level Bathroom Equipment: Grab bars in shower, Shower chair, Bulit-in shower seat Bathroom Accessibility: Accessible via walker Mobility Equipment: Standard walker Additional Objective Details - Home Living: Pt can be called [place]. Prior Level of Function Level of [place] - Transfers/Ambulation/Mobility: Independent with functional transfers, Independent with household ambulation, Independent with community ambulation (No AD for ambulation at home SIGHT MOUNTER.) Level of [place] - ADLs: Independent Level of [place] - Homemaking: (Spouse completed cooking and laundry tasks.) Driving: Patient drives Vocational: Retired Past Medical History: Diagnosis Date Diabetes mellitus (HCC) Hyperlipidemia Hypertension Sleep apnea has a CPAP Past Surgical History: Procedure Laterality Date ANKLE ARTHROSCOPY W/ OPEN REPAIR Left 1967 APPENDECTOMY 1961 CARDIAC CATHETERIZATION N/A 02/10/2022 Procedure: Left Heart Cath Possbile PTCA/Stent; Surgeon: Baljinder Banegas MD; Location: [facility]; Service: Cardiovascular CARDIAC CATHETERIZATION N/A 02/10/2022 Procedure: Coronary Angiogram; Surgeon: Baljinder Banegas MD; Location: [facility]; Service: Cardiovascular CARDIAC CATHETERIZATION N/A 02/10/2022 Procedure: Instant Wave Free Ratio; Surgeon: Baljinder Banegas MD; [facility]; Service: Cardiovascular CARDIAC CATHETERIZATION N/A 02/10/2022 Procedure: Fractional Flow Ruffin; Surgeon: Baljinder Banegas MD; Location: [facility]; Service: Cardiovascular COLONOSCOPY N/A 10/20/2023 Procedure: COLONOSCOPY with biopsy; Surgeon: Joe Rojas MD; Location: [facility]; Service: Gastroenterology CT COLONOSCOPY 03/01/[address] COLONOSCOPY 07/16/2018 CT COLONOSCOPY EGD N/A 10/20/2023 Procedure: ESOPHAGOGASTRODUODENOSCOPY; Surgeon: Joe Rojas MD; Location: [facility]; Service: Gastroenterology INSERTION SUBCUTANEOUS PORT N/A 10/21/2023 Procedure: INSERTION SUBCUTANEOUS PORT; Surgeon: Austen Hall MD; [facility]; Service: [employer] KNEE ARTHROPLASTY Right 1999 MT LAPS COLECTOMY PRTL W/RMVL TERMINAL ILEUM Right 10/21/2023 Procedure: COLECTOMY RIGHT ROBOTIC XI AND SMALL BOWEL RESECTION WITH LYMPH NODE DISSECTION AND LIVER BIOPSY; Surgeon: Austen Hall MD; [facility]; Service: [employer] For complete objective data, detailed plan of care and patient education refer to: OT Evaluation flowsheet, OT Evaluation and Treatment flowsheet, OT Treatment flowsheet, patient Plan of Care, Plan of Care progress note, and Patient Education. This note stands as the current Discharge Summary upon patient discharge from the hospital or completion of Occupational Therapy Plan of Care. * Dorothy Thurston, PT - 10/22/2023 2:54 PM EDT Physical Therapy PHYSICAL THERAPY EVALUATION and TREATMENT NOTE COLECTOMY RIGHT ROBOTIC XI AND SMALL BOWEL RESECTION WITH LYMPH NODE DISSECTION AND LIVER BIOPSY INSERTION SUBCUTANEOUS PORT 10/21/23 PHYSICAL THERAPY EVALUATION Skilled Therapy Needs After Discharge Anticipate Resolution of Current Assessment Limitations Including: Pain, Mechanical Barriers, Social Support Are Skilled Therapy Services Needed After Discharge: Yes Intensity of Skilled Therapy: 2-3 days per week DME Recommendation: Wheeled Walker (may not need by discharge, owns) DME Rationale: Patient's condition creates an increased risk of safety hazard without recommended equipment Rehab Potential: Good Outcomes Measures Prior Function - Basic Mobility Raw Score: 24 Points Prior Function - Basic Mobility % Impaired: 0% AM-PAC Basic Mobility Raw Score: 17 Points AM-PAC Basic Mobility % Impaired: 43.83% Physical Therapy Assessment History: The following factors influence the patient's participation in the PT plan of care: Personal Factors: Age Environmental Factors: Steps to enter home The following co-morbidities (from this admission or prior) influence the patient's participation in this plan of care: See H&P Number of History elements affecting this patient's PT plan of care: 3 or more Examination of Body Systems: The patient presents with: Musculoskeletal impairments: Functional Endurance, Pain Neurologic Impairments: Balance Cardiopulmonary Impairments: Activity Tolerance, O2 Saturation Regulation with Activity Integumentary Impairments: Active Wound, Tissue Healing. These impairments result in limitations of Gait, Functional Transfers, Stair- Climbing, Safety, Activity Tolerance. These impairments result in restrictions of Household mobility, Community mobility, Leisure activities. Number of Body Systems elements affecting this patient's PT plan of care: 4 or more. Clinical Presentation: The patient's clinical presentation for this PT evaluation is evolving with changing characteristics as evidenced by current PT documentation. Activity Tolerance Activity Tolerance: (desat to 85% on 6L NC with ambulation) Was on high flow earlier today Therapy Precautions Orthotic Devices: No Weight Bearing Status: WFL General Rehab Precautions: Fall risk, Abdominal Balance Assessment Standing Balance - Static: Contact guard assist, with device Mechanical Shop Laborer - Standing Static: wheeled walker Bed Mobility Not assessed Transfers Sit to Stand: Contact guard assist Mechanical Shop Laborer: BUE, wheeled walker Additional Transfer Trial 2: Yes Sit to Stand Trial 2: Contact guard assist Mechanical Shop Laborer Trial 2: BUE Additional Transfer Trial 3: Yes Sit to Stand Trial 3: Contact guard assist Mechanical Shop Laborer Trial 3: wheeled walker, BUE Gait/Locomotion Gait Assistance: Contact guard assist Assistive Device: wheeled walker Distance: 25 Feet Additional Gait Trial 2: Yes Gait Assistance Trial 2: Contact guard assist Assistive Device Trial 2: wheeled walker Distance Trial 2: 25 Additional Gait Trial 3: Yes Gait Assistance Trial 3: Contact guard assist Assistive Device Trial 3: other (comment) (none) Distance Trial 3: 1 (1 step forward then back from recliner with mildly unsteady gait) Pattern: step through, L decreased step length, R decreased step length, decreased candace (steps per minute) Gait Loss(es) of Balance: (2 mild LOB first bout) Environment/Terrain: open/community environment, multiple distractions Home Living Obtained Home Living and PLOF info from: Patient Lives With: Spouse, Son Type of Home: House Home Layout: One level Steps to enter home: Yes Rails to enter home: 1 rail Number of stairs to enter home: 3 Mobility Equipment: Wheeled walker Prior Level of Function Level of [place] - Transfers/Ambulation/Mobility: Independent with household ambulation, Independent with functional transfers, Independent with community ambulation (no AD) Level of [place] - ADLs: Independent Driving: Patient drives Vocational: Retired Additional Assessment: After patient mobilization was performed SCD's were administered to the Bilateral LE's for DVT prevention. Pt in recliner at end of session with pain rated 3/10. No alarm in recliner pre-PT PHYSICAL THERAPY TREATMENT NOTE Total Treatment Time (Total Session Time): 20 Minutes Total Timed Code Treatment Minutes: 5 Minutes Gait Training Skilled Intervention Provided: verbal cues, monitoring patient response with activity (monitoring vitals) For: device adjustment fit to patient, self-monitoring during activity, fall prevention Resulting in: improved safety, decreasing fall risk, improved activity tolerance Additional Treatment Details Pt educated on PT POC Past Medical History: Diagnosis Date Diabetes mellitus (HCC) Hyperlipidemia Hypertension Sleep apnea has a CPAP Past Surgical History: Procedure Laterality Date ANKLE ARTHROSCOPY W/ OPEN REPAIR Left 1967 APPENDECTOMY 1961 CARDIAC CATHETERIZATION N/A 02/10/2022 Procedure: Left Heart Cath Possbile PTCA/Stent; Surgeon: Baljinder Banegas MD; Location: [facility]; Service: Cardiovascular CARDIAC CATHETERIZATION N/A 02/10/2022 Procedure: Coronary Angiogram; Surgeon: Baljinder Banegas MD; Location: [facility]; Service: Cardiovascular CARDIAC CATHETERIZATION N/A 02/10/2022 Procedure: Instant Wave Free Ratio; Surgeon: Baljinder Banegas MD; Location: [facility]; Service: Cardiovascular CARDIAC CATHETERIZATION N/A 02/10/2022 Procedure: Fractional Flow Ruffin; Surgeon: Baljinder Banegas MD; Location: [facility]; Service: Cardiovascular COLONOSCOPY N/A 10/20/2023 Procedure: COLONOSCOPY with biopsy; Surgeon: Joe Rojas MD; Location: [facility]; Service: Gastroenterology CT COLONOSCOPY 03/01/[address] COLONOSCOPY 07/16/2018 CT COLONOSCOPY EGD N/A 10/20/2023 Procedure: ESOPHAGOGASTRODUODENOSCOPY; Surgeon: Joe Rojas MD; Location: [facility]; Service: Gastroenterology INSERTION SUBCUTANEOUS PORT N/A 10/21/2023 Procedure: INSERTION SUBCUTANEOUS PORT; Surgeon: Austen Hall MD; [facility]; Service: [employer] KNEE ARTHROPLASTY Right 1999 MT LAPS COLECTOMY PRTL W/RMVL TERMINAL ILEUM Right 10/21/2023 Procedure: COLECTOMY RIGHT ROBOTIC XI AND SMALL BOWEL RESECTION WITH LYMPH NODE DISSECTION AND LIVER BIOPSY; Surgeon: Austen Hall MD; [facility]; Service: [employer] For complete objective data, detailed plan of care and patient education refer to: PT Evaluation flowsheet, PT Evaluation and Treatment flowsheet, PT Treatment flowsheet, patient Plan of Care, Plan of Care progress note, and Patient Education. This note stands as the current Discharge Summary upon patient discharge from the hospital or completion of Physical Therapy Plan. * Diana Bryant RN - 10/22/2023 1:02 PM EDTAssociated Order(s): IP CONSULT TO CARE MANAGEMENT Care Management Consult Note Date: 10/22/2023 Time: 1:02 PM Patient Name: Dipti Sierra Date of : 1945 Reason for Consult: Discharge Plan: Plan A: Home Discharging Transportation Plan: Pt's to transport to home at discharge Discharge Plan Status: Pending medical decision making. Assessment and Background Information: Please see CM assessment completed by Liliana Zaldivar RNresidential program manager while pt was in the emergency dept. CM ASSESSMENT Introduced self to patient his and son at bedside; CM Services explained; pt agreeable to CM assessment. LIVING ARRANGEMENTS: Patient lives with his and son in one story private residence with basement. Entry into home has 3 steps, having 1 handrail(s), which pt can navigate. Pt lives on first floor without need to access basement.. ADL'S: Performs all primary ADLs independently, i.e., bathing, toileting, continence, dressing, feeding, transfering . Food preparation completed by pt's . Shopping needs obtained by pt's . House keeping performed by pt's TRANSPORTATION: Pt drives and doeshave a working vehicle, transportation assistance provided by pt's or son . Pt's will transport pt home at time of discharge as appropriate. FINANCES: Pt aware this admission insurance coverage is listed as [employer]OTED [employer] MANAGED MEDICARE and no secondary insurance. Pt denies transportation, medication or food insecurity. Pt denies any concerns relating to obtaining medications or follow up medical care. DISCHARGE CARE RESOURCES: Pt has Dayami Roe MD as PCP. The patient is not currently receiving home health services.. Pt's spouse as teachable care consultant. Pt does not have association with [facility] Agency on Aging such as [facility] [employer]/ [employer].. DME: As listed Living Arrangements: Spouse/significant other, Children Support Systems: Spouse/significant other, Children Assistance Needed: no Type of Residence: Private residence Prior to Admission Home Care Services: No Current Home Equipment: Wheeled walker, Cane, Tub/Shower chair, Adaptive equipment, C-PAP (does notuse ambulatory DME, grab bars in shower. Has CPAP machine but states old and needs new one) Holistic Assessment Medication adherence problem:: No History of falls in last 6 months:: No Family aware of the patient's advance care planning wishes:: Yes Do you have any cultural/spiritual connections or beliefs that would impact how we deliver your care?: No Chronic pain:: (!) Yes Location of chronic pain:: low back Chronic pain timing:: Intermittent Chronic pain severity:: 8 (experiences pain level of 8 with weather changes) Limitation of routine activities due to chronic pain:: No Pt denies further needs at this time. CM will continue to follow this visit * Lencho Rodriguez MD - 10/21/2023 2:06 PM EDTAssociated Order(s): IP CONSULT TO ONCOLOGY Consult completed on 10/20/23 * Juan Tinajero CNP - 10/20/2023 5:43 PM EDT [facility] SURGICAL HISTORY & PHYSICAL/CONSULTATION NOTE Cecal mass: C-scope today with large cecal mass, no obstruction or perforation noted, pathology pending CT CAP, 6.7 cm cecal mass, enlarged mesenteric lymph nodes right lower quadrant, numerous metastatic nodules bilateral lungs, multiple ill-defined metastatic lesions in the liver Oncology following, recommending surgical consult and possible Port-A-Cath placement CEA pending Final surgical plan to follow, Dr. Hall to review imaging and discuss with oncology. Surgery Admitted with these risk variables:None. Please see assessment and plan for further details. CHIEF COMPLAINT: Shortness of breath HISTORY OF PRESENT ILLNESS / INJURY (HPI): 77-year-old male patient with past medical history of diabetes, hyperlipidemia, hypertension, BRYCE and past surgical history of appendectomy arrived to [facility] emergency department on 10/18 with complaints of shortness of breath. He was found to be anemic at that time and GI was consulted for colonoscopy. Colonoscopy 10/19 shows a large cecal mass, nonobstructing, nonbleeding, biopsies and pathology is pending. CT chest abdomen pelvis was obtained and shows likely metastatic disease to liver, lymph nodes, and lungs. Oncology consulted recommended surgery consult for possible colon resection. No abdominal pain, denies any bloody bowel movements, no AC/AP medications at home. Discussed with Dr. Hall, final surgical plan pending. PAST MEDICAL HISTORY (PMH): Past Medical History: Diagnosis Date Diabetes mellitus (HCC) Hyperlipidemia Hypertension Sleep apnea has a CPAP Past Surgical History: Procedure Laterality Date ANKLE ARTHROSCOPY W/ OPEN REPAIR Left 1967 APPENDECTOMY 1961 CARDIAC CATHETERIZATION N/A 02/10/2022 Procedure: Left Heart Cath Possbile PTCA/Stent; Surgeon: Baljinder Banegas MD; Location: [facility]; Service: Cardiovascular CARDIAC CATHETERIZATION N/A 02/10/2022 Procedure: Coronary Angiogram; Surgeon: Baljinder Banegas MD; Location: [facility]; Service: Cardiovascular CARDIAC CATHETERIZATION N/A 02/10/2022 Procedure: Instant Wave Free Ratio; Surgeon: Baljinder Banegas MD; Location: [facility]; Service: Cardiovascular CARDIAC CATHETERIZATION N/A 02/10/2022 Procedure: Fractional Flow Ruffin; Surgeon: Baljinder Banegas MD; [facility]; Service: Cardiovascular CT COLONOSCOPY 03/01/[address] COLONOSCOPY 07/16/2018 CT COLONOSCOPY KNEE ARTHROPLASTY Right 2000 Social History Tobacco Use Smoking status: Never Smokeless tobacco: Never Vaping Use Vaping Use: Never used Substance Use Topics Alcohol use: Never Drug use: Never Family History Problem Relation Age of Onset Heart attack Mother MEDICATIONS: No current facility-administered medications on file prior to encounter. Current Outpatient Medications on File Prior to Encounter Medication Sig Dispense Refill aspirin 81 MG EC tablet Take 1 (one) tablet (81 mg total) by mouth every morning . aspirin-caffeine (Kia Back and Body) 500-32.5 mg Tab Take 1 tablet by mouth as needed . azelastine (ASTELIN) 137 mcg (0.1 %) nasal spray 2 (two) sprays by Each Nare route 2 (two) times a day . glimepiride (AMARYL) 4 MG tablet Take 1 Unspecified by mouth daily . omeprazole (PRILOSEC) 40 MG capsule Take 1 (one) capsule (40 mg total) by mouth daily with dinner . pioglitazone (ACTOS) 30 MG tablet Take 1 (one) tablet (30 mg total) by mouth every morning . rosuvastatin (CRESTOR) 10 MG tablet Take 1 (one) tablet (10 mg total) by mouth every morning . zolpidem (AMBIEN) 10 mg tablet Take 1 (one) tablet (10 mg total) by mouth nightly . acetaminophen (TYLENOL) 500 MG tablet Take 1 (one) tablet (500 mg total) by mouth as needed for pain . famotidine (PEPCID) 20 MG tablet Take 1 (one) tablet (20 mg total) by mouth 2 (two) times a day for10 days . 20 tablet 0 lisinopriL-hydrochlorothiazide (PRINZIDE,ZESTORETIC) 10-12.5 mg per tablet Take 1 Unspecified by mouth daily . potassium chloride 10 MEQ CR tablet Take 1 Unspecified by mouth . traZODone (DESYREL) 50 MG tablet Take 0.5 (one-half) tablet (25 mg total) by mouth nightly . ALLERGIES: Allergies Allergen Reactions Lisinopril Angioedema Metformin GI Intolerance REVIEW OF SYSTEMS: COVID19 Screen: Negative for fever, cough, SOB, exposure. Constitutional Symptoms: Negative for unexplained falls, weight loss Eyes: Negative for eye pain or vision changes Ears, Nose, Mouth, Throat: Negative for rhinorrhea, nasal pain, dysphagia, hoarseness Cardiovascular: Negative for chest pain, orthopnea, edema Respiratory: Positive for shortness of breath, denies chest pain Gastrointestinal: Slight abdominal bloating, no nausea or vomiting. Genitourinary: Negative for dysuria, hematuria Musculoskeletal: Negative for pain, joint edema Skin/Breast: Negative for rash, itching, lesions Neurological: Negative for paresthesia, paralysis, loss of bowel or bladder control, loss of consciousness Psychiatric: Negative for depression, anxiety, or suicidal ideations Endocrine: Negative for heat/cold intolerance, polydipsia, polyphagia, polyuria Hematologic/Lymphatic: Negative for anticoagulant use, antiplatelet use, family hx of clotting or bleeding disorders Allergic/Immunologic: Allergies reviewed, no use of immunosuppressants or active chemotherapy Other than the above items, the remainder of a complete review of systems is otherwise negative. PHYSICAL EXAM: BP 134/75 Pulse 70 Temp 98.1 F (36.7 C) (Oral) Resp (!) 22 Ht 5' 7 Wt 104.3 kg (230 lb) SpO2 96% BMI 36.02 kg/m Body mass index is 36.02 kg/m . GENERAL: Appears age appropriate. No acute distress. NEUROLOGICAL: Alert and oriented X 3. Follows commands with extremities x4, equal strength. Pupils equal, round, reactive to light. EOMI. No focal neurologic deficits noted. Head Eyes Ear Nose Throat: Head: Atraumatic, normocephalic. Eyes: Conjunctivae/sclerae/corneas clear. Ears: External ear normal. Hearing within normal limits for patient. No drainage. Nose: nares normal, septum midline, no drainage or nasal tenderness. Throat: phonation normal Neck: Supple, trachea midline, no midline tenderness, step offs, bony crepitus. CARDIOVASCULAR: Regular rate and rhythm. No clicks, rubs, murmurs or gallops noted. No peripheral edema noted. 2+ pulses radial/DP/PT bilaterally. RESPIRATORY: lungs clear, equal chest rise, on 2 liters nc. ABDOMINAL: Rounded, soft, nontender, slightly distended. normal bowel sounds. No guarding or peritoneal signs. +BM/+flatus GENITOURINARY: Normal genitalia for age without lesion or trauma. Rectal exam - defer MUSCULOSKELETAL: Extremities atraumatic without gross deformity x4. ROM appropriate for age. No clubbing, cyanosis or joint edema. SPINE: No midline tenderness, stepoffs, or bony tenderness to thoracic and lumbar spine SKIN: Skin warm and dry. No rashes or lesions. IMAGING STUDIES: I have reviewed the following: Reviewed LABORATORY STUDIES: Lab Results Component Value Date WBC 9.77 10/20/2023 HGB 8.0 (L) 10/20/2023 HCT 28.9 (L) 10/20/2023 MCV 72.9 (L) 10/20/2023 EXTMCV 89.1 08/20/2017 PLT 318 10/20/2023 RBC 3.80 (L) 10/20/2023 Lab Results Component Value Date GLUCOSE 137 (H) 10/20/2023 CALCIUM 8.0 (L) 10/20/2023 NA 139 10/20/2023 K 4.0 10/20/2023 CL 103 10/20/2023 BUN 24 10/20/2023 CREATININE 1.00 10/20/2023 Lab Results Component Value Date ALT 21 08/20/2017 AST 14 08/20/2017 * Lencho Rodriguez MD - 10/20/2023 5:00 PM EDT Oncology Inpatient Consult 10/20/2023 Lencho Rodriguez MD [facility] Patient: Dipti Sierra Date of : 1945 (77 y.o.) Referring Provider: Refer to consult order in electronic medical record PCP: Dayami Roe MD ASSESSMENT/PLAN: Dipti Sierra 77 y.o. male with history of colon cancer with metastatic disease to the lung and liver colonoscopy on 10/20/2023 showed a mass in the cecum there is no evidence of obstruction from the notes I can find we will wait for the surgeon to talk to the criminology professor about the need for any diverting procedure if no diverting procedure is needed we will proceed with FOLFOX and Avastin in the near future he will need a Port-A-Cath tomorrow and we will initiate FOLFOX and Avastin in thenear future he is iron deficient and should be given some IV iron tomorrow I have discussed the options with his his son and the patient himself. Will wait for final biopsy report and special testing of the biopsy we could biopsy the lung or the liver but they all look like metastasis from thecolon and I do not see the need at the present time. Admitted with these risk variables:Acute Respiratory Failure. Please see assessment and plan for further details. SUBJECTIVE: Reason for Consult: 77-year-old male presented to the emergency room with a history of shortness ofbreath he indicated he been shortness of breath for the last couple years but it got markedly worsein the emergency room his hemoglobin was in the [address] of the chest showed no evidence of pulmonary embolus but the CT showed multiple pulmonary metastasis as well as liver metastasis. He deniesbright red blood per rectum are hemoptysis or hematemesis. Colonoscopy done today showed a cecal mass CAT scan showed a mass in the same area about 6.7 cm in size liver masses measuring the range of 3 cm lung mass is in the similar size. No family history of colon cancer he did have a colon anoscopy approxi-10 years ago and was negative except for a polyp. These not any significant weight loss. He does have exertional dyspnea he feels better now after transfusion hemoglobin was moved from 5-11.His iron levels are low I do not see a B12 or folate level but we have ordered those we will try toget him some IV iron in the near future. History of Present Illness: Dipti Sierra is a 77 y.o. male with a history of patient appears to have colon cancer and will need treatment for metastatic disease in the near future. Pending Lab and Radiology Results Order Current Status Tissue Exam In process Interpretation of Testing: I personally reviewed the Chest X-ray and agree with the interpretation(s). Review of Systems: A Complete review of systems was performed and is negative except for what is listed in the HPI. Past Medical History: Diagnosis Date Diabetes mellitus (HCC) Hyperlipidemia Hypertension Sleep apnea has a CPAP Past Surgical History: Procedure Laterality Date ANKLE ARTHROSCOPY W/ OPEN REPAIR Left 1967 APPENDECTOMY 1961 CARDIAC CATHETERIZATION N/A 02/10/2022 Procedure: Left Heart Cath Possbile PTCA/Stent; Surgeon: Baljinder Banegas MD; Location: [facility]; Service: Cardiovascular CARDIAC CATHETERIZATION N/A 02/10/2022 Procedure: Coronary Angiogram; Surgeon: Baljinder Banegas MD; Location: [facility]; Service: Cardiovascular CARDIAC CATHETERIZATION N/A 02/10/2022 Procedure: Instant Wave Free Ratio; Surgeon: Baljinder Banegas MD; Location: [facility]; Service: Cardiovascular CARDIAC CATHETERIZATION N/A 02/10/2022 Procedure: Fractional Flow Ruffin; Surgeon: Baljinder Banegas MD; Location: [facility]; Service: Cardiovascular CT COLONOSCOPY 03/01/[address] COLONOSCOPY 07/16/2018 CT COLONOSCOPY KNEE ARTHROPLASTY Right 2000 Family History Problem Relation Age of Onset Heart attack Mother Social History Tobacco Use Smoking Status Never Smokeless Tobacco Never Allergies: Lisinopril and Metformin Current HOSPITAL Medications: acetaminophen (TYLENOL) tablet 650 mg, 650 mg, Oral, Q4H PRN furosemide (LASIX) injection 20 mg, 20 mg, Intravenous, Q6H KODY insulin lispro (AdmeLOG,HumaLOG) injection 0-15 Units, 0-15 Units, Subcutaneous, at bedtime ANDNotify physician, , , Until Discontinued insulin lispro (AdmeLOG,HumaLOG) injection 0-30 Units, 0-30 Units, Subcutaneous, TID AC iron sucrose (VENOFER) injection 200 mg, 200 mg, Intravenous, Daily ondansetron (ZOFRAN) injection 4 mg, 4 mg, Intravenous, Q6H PRN pantoprazole (PROTONIX) injection 40 mg, 40 mg, Intravenous, Q12H perflutren lipid microspheres (DEFINITY) 0.143 mg/mL solution 0-10 mL of mixture, 0-10 mL of mixture, Intravenous, Once in imaging Saline lock IV, , , Continuous AND sodium chloride (PF) (NS) flush 5 mL, 5 mL, Intravenous, PRNAND sodium chloride (PF) (NS) flush 5 mL, 5 mL, Intravenous, Q8H KODY AND sodium chloride 0.9% (NS), 0-150 mL/hr, Intravenous, PRN sodium chloride 0.9% (NS), 25 mL/hr, Intravenous, Once PRN sodium chloride 0.9% (NS), 25 mL/hr, Intravenous, Once PRN traZODone (DESYREL) tablet 50 mg, 50 mg, Oral, Nightly PRN OBJECTIVE: Physical Examination: BP 134/75 Pulse 70 Temp 98.1 F (36.7 C) (Oral) Resp (!) 22 Ht 5' 7 Wt 104.3 kg (230 lb) SpO2 96% BMI 36.02 kg/m ECOG Gen: NAD, resting comfortably HEENT: NCAT, no temporal wasting, anicteric sclerae, mmm, no op lesions Neck: supple, no thyromegaly or LAD Lymphatics: no cervical, axillary, or inguinal adenopathy Chest: CTAB, no w/r/r, no respiratory distress CV: RRR, no m/r/g, normal S1, S2 Abd: soft, nontender, nondistended, +BS Ext: wwp, no c/c/e Skin: no rashes or lesions Neuro: Alert and oriented x4, no focal deficits, moves all four extremities Psych: Mood normal. Laboratory and Additional Data Reviewed: Reviewed 10/20/23 5:00 PM: Laboratory Lab Results Component Value Date WBC 9.77 10/20/2023 HGB 8.0 (L) 10/20/2023 HCT 28.9 (L) 10/20/2023 MCV 72.9 (L) 10/20/2023 EXTMCV 89.1 08/20/2017 PLT 318 10/20/2023 RBC 3.80 (L) 10/20/2023 Lab Results Component Value Date GLUCOSE 137 (H) 10/20/2023 CALCIUM 8.0 (L) 10/20/2023 NA 139 10/20/2023 K 4.0 10/20/2023 CL 103 10/20/2023 BUN 24 10/20/2023 CREATININE 1.00 10/20/2023 Lab Results Component Value Date ALT 21 08/20/2017 AST 14 08/20/2017 Lencho Rodriguez MD * Gayla De La Paz CNP - 10/19/2023 12:54 PM EDTAssociated Order(s): IP CONSULT TO GASTROENTEROLOGY Gastroenterology Inpatient Consult 10/19/2023 Gayla De La Paz CNP [facility] Patient: Dipti Sierra Date of : 1945 (77 y.o.) Referring Provider: Refer to consult order in electronic medical record PCP: Dayami Roe MD SUBJECTIVE: Chief Complaint/Reason for Consult: acute anemia ASSESSMENT/PLAN: 77 y.o. male with history of DM, HLD, HTN and sleep apnea presents to ED with fatigue and shortnessof breath found to have hemoglobin of 5.5 down from 11.9 in along with low iron stores without signs of overt bleeding. Iron deficiency anemia- Ferritin 18 hemoglobin 5.5 down from 9.2 (on 01/2022) Denies melena or red blood per rectum Occult stool was negative Last colonoscopy 07/16/[address] Cano-cecal polyp and diverticulosis No signs of acute bleeding, may have slow intermittent GI blood loss Will need bidirectional endoscopy to further evaluate Plan for EGD and colonoscopy tomorrow Continue to monitor hemoglobin and transfuse for hemoglobin less than 7 No new Assessment & Plan notes have been filed under this hospital service since the last note was generated. Service: Gastroenterology History of Present Illness: Dipti Sierra is a 77 y.o. male with history of DM, HLD, HTN and sleep apnea presents to ED with fatigue and shortness of breath found to have hemoglobin of 5.5 down from 11.9 in . Endorses progressive fatigue and shortness of breath over the past year becoming worse this past few weeks he denies any melena or red blood per rectum. No nausea vomiting weight loss dysphagia or change in bowel habits. His last colonoscopy was on 07/16/[address] Cano and noted to have 5 mm cecal polyps and diverticulosis. He denies family history of colorectal cancer. Iron studies show ferritin of18 consistent with iron deficiency anemia. He was found to be guaiac negative by ED physician. Blood transfusion has been ordered. Interpretation of Testing: I personally reviewed the labs notes and imaging Review of Systems: All other systems reviewed and negative other than HPI Past Medical History: Diagnosis Date Diabetes mellitus (HCC) Hyperlipidemia Hypertension Sleep apnea has a CPAP Past Surgical History: Procedure Laterality Date ANKLE ARTHROSCOPY W/ OPEN REPAIR Left 1967 APPENDECTOMY 1961 CARDIAC CATHETERIZATION N/A 02/10/2022 Procedure: Left Heart Cath Possbile PTCA/Stent; Surgeon: Baljinder Banegas MD; Location: [facility]; Service: Cardiovascular CARDIAC CATHETERIZATION N/A 02/10/2022 Procedure: Coronary Angiogram; Surgeon: Baljinder Banegas MD; Location: [facility]; Service: Cardiovascular CARDIAC CATHETERIZATION N/A 02/10/2022 Procedure: Instant Wave Free Ratio; Surgeon: Baljinder Banegas MD; Location: [facility]; Service: Cardiovascular CARDIAC CATHETERIZATION N/A 02/10/2022 Procedure: Fractional Flow Ruffin; Surgeon: Baljinder Banegas MD; Location: [facility]; Service: Cardiovascular CT COLONOSCOPY 03/01/[address] COLONOSCOPY 07/16/2018 CT COLONOSCOPY KNEE ARTHROPLASTY Right 2000 Family History Problem Relation Age of Onset Heart attack Mother Social History Tobacco Use Smoking Status Never Smokeless Tobacco Never Additional History Comments: None Allergies: Lisinopril and Metformin Current HOME Medications: Outpatient Medications Marked as Taking for the 10/19/23 encounter (Hospital Encounter): aspirin 81 MG EC tablet, Take 1 (one) tablet (81 mg total) by mouth every morning . aspirin-caffeine (Kia Back and Body) 500-32.5 mg Tab, Take 1 tablet by mouth as needed . azelastine (ASTELIN) 137 mcg (0.1 %) nasal spray, 2 (two) sprays by Each Nare route 2 (two) times aday . glimepiride (AMARYL) 4 MG tablet, Take 1 Unspecified by mouth daily . omeprazole (PRILOSEC) 40 MG capsule, Take 1 (one) capsule (40 mg total) by mouth daily with dinner . pioglitazone (ACTOS) 30 MG tablet, Take 1 (one) tablet (30 mg total) by mouth every morning . rosuvastatin (CRESTOR) 10 MG tablet, Take 1 (one) tablet (10 mg total) by mouth every morning . zolpidem (AMBIEN) 10 mg tablet, Take 1 (one) tablet (10 mg total) by mouth nightly . Current HOSPITAL Medications: acetaminophen (TYLENOL) tablet 650 mg, 650 mg, Oral, Q4H PRN enoxaparin (LOVENOX) syringe 40 mg, 40 mg, Subcutaneous, Daily insulin lispro (AdmeLOG,HumaLOG) injection 0-15 Units, 0-15 Units, Subcutaneous, at bedtime ANDNotify physician, , , Until Discontinued insulin lispro (AdmeLOG,HumaLOG) injection 0-30 Units, 0-30 Units, Subcutaneous, TID AC ondansetron (ZOFRAN) injection 4 mg, 4 mg, Intravenous, Q6H PRN pantoprazole (PROTONIX) injection 40 mg, 40 mg, Intravenous, Q12H Saline lock IV, , , Continuous AND sodium chloride (PF) (NS) flush 5 mL, 5 mL, Intravenous, PRNAND sodium chloride (PF) (NS) flush 5 mL, 5 mL, Intravenous, Q8H KODY AND sodium chloride 0.9% (NS), 0-150 mL/hr, Intravenous, PRN sodium chloride 0.9% (NS), 25 mL/hr, Intravenous, Once PRN traZODone (DESYREL) tablet 50 mg, 50 mg, Oral, Nightly PRN OBJECTIVE: Physical Examination: BP 124/76 Pulse 75 Temp 98.2 F (36.8 C) Resp 16 Ht 5' 7 Wt 104.3 kg (230 lb) SpO2 95% BMI 36.02 kg/m General Appearance: Well appearing, no acute distress HEENT: Head- Normocephalic, atraumatic. Eyes: No scleral icterus, normal conjunctive. Ears: Normal appearance, hearing intact. Nares: Normal pink mucosa, no exudate. Throat: Mucus membranes moist, noerythema. Neck: Supple, trachea midline. Cardiovascular: Regular rate and rhythm, no murmur, rub or gallop. Respiratory: Respirations unlabored, Lungs clear to auscultation, no wheezes, crackles or rhonchi. Abdomen: Soft, non distended, normoactive bowel sounds, non- tender to palpation, no organomegaly or masses. Extremities: No clubbing, cyanosis or edema. Musculoskeletal: No joint deformity, swelling or tenderness Neurological: Alert and oriented, no focal deficits, grossly normal motor and sensory Skin: Normal color and turgor, no jaundice or rashes. Psych: Normal mood and affect. Laboratory and Additional Data Reviewed: Reviewed 10/19/23 12:54 PM: Laboratory, Medications, and Transcriptions Associated attestation - Joe Rojas MD - 10/19/2023 1:52 PM EDT I personally interviewed and examined the patient. I review Nayely nurse practitioner consultation report and agree with the documented history physical exam assessment and plan. 77 y.o. male with history of DM, HLD, HTN and sleep apnea presents to ED with fatigue and shortnessof breath found to have hemoglobin of 5.5 down from 11.9 in along with low iron stores without signs of overt bleeding. Ferritin 18 hemoglobin 5.5 down from 9.2 (on 01/2022) Denies melena or red blood per rectum Occult stool was negative Last colonoscopy 07/16/[address] Cano-cecal polyp and diverticulosis No signs of acute bleeding, may have slow intermittent GI blood loss Will need bidirectional endoscopy to further evaluate Plan for EGD and colonoscopy tomorrow documented in this [id number] Note Attestation signed by Austen Hall MD at 10/28/2023 1:36 PM Patient seen and examined agree with below. Doing well no new issues. Has tolerated diet without problems, bowels continue to work and no nausea. AFVS Labs reviewed Abdomen soft, less distended, ATTP Incisions CDI - advance diet - dc reglan - okay to dc home if patient tolerates regular/diabetic diet from surgical standpoint. 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 Oncology following. Afebrile. WBC 5.2 Tolerating cld, passing flatus and having bowel movements Pain improving - adv to reg diet - continue ambulation, pulm hygiene INCIDENTAL FINDINGS: RESOLVED PROBLEMS: SURGERIES/PROCEDURES: Date Operation/Procedure Provider Name 10/21/2023 Robotic right hemicolectomy with central mesenteric lymph node dissection. Robotic small bowel resection. Robotic segment 5 liver wedge resection. Left-sided subclavian [id number] placement with fluoroscopic guidance Dr. Hall TODAY'S ASSESSMENT AND PLAN OF CARE: See above DISPOSITION - TBD CHIEF COMPLAINT/ HPI / PFSHx / EVENTS OVER LAST 24HRS: Up to chair. Reports overall improvement to distension and abdominal pain. REVIEW OF SYSTEMS: Other than the above items the remainder of the complete ROS is otherwise unchanged from admission. PHYSICAL EXAM: Temp: [97.7 degrees F (36.5 degrees C)-98.7 degrees F (37.1 degrees C)] 97.8 degrees F (36.6 degrees C) Heart Rate: [83-94] 88 Resp: [16-20] 18 BP: (125-153)/(67-77) 134/70 GENERAL: Appears age appropriate. NEUROLOGICAL: Alert and oriented X 3. No focal neurologic deficits noted. Head Eyes Ear Nose Throat: Head: Atraumatic, normocephalic. CARDIOVASCULAR: Regular rate and rhythm. 2+ pulses radial/DP/PT bilaterally. RESPIRATORY: Respiratory effort unlabored without use of accessory muscles. On nasal cannula. ABDOMINAL: Rounded, distended, mildly TTP. Incisions well approximated. GENITOURINARY: Normal genitalia for age without lesion or trauma. MUSCULOSKELETAL: Extremities atraumatic without gross deformity x4. SKIN: Skin warm and dry. Intake/Output Summary (Last 24 hours) at 10/28/2023 0922 Last data filed at 10/28/2023 0800 Gross per 24 hour Intake 990 ml Output 475 ml Net 515 ml IMAGING: No new imaging. LABS Lab Results Component Value Date WBC 5.21 10/28/2023 HGB 7.7 (L) 10/28/2023 HCT 28.5 (L) 10/28/2023 MCV 78.9 (L) 10/28/2023 EXTMCV 89.1 08/20/2017 PLT 293 10/28/2023 RBC 3.61 (L) 10/28/2023 Lab Results Component Value Date GLUCOSE 169 (H) 10/28/2023 CALCIUM 8.6 10/28/2023 NA 135 10/28/2023 K 3.9 10/28/2023 CL 93 (L) 10/28/2023 BUN 14 10/28/2023 CREATININE 0.98 10/28/2023 Lab Results Component Value Date ALT 8 10/20/2023 AST 22 10/20/2023 ALKPHOS 80 10/20/2023 BILITOT 0.7 10/20/2023 DAILY CHECKLIST: *Need for Restraints: na *Need for Urinary Catheter: na *Need for Central Access Devices: port *Stress Ulcer Prophylaxis: protonix *VTE Prophylaxis (Body mass index is 36.02 kg/m ., Estimated Creatinine Clearance: 60 mL/min (by C-G formula based on SCr of 0.98 mg/dL).): lovenox 40 mg daily *Home Medications Reconciled: per primary *Code Status: full code AUTHENTICATED BY JA CASTRO ON 10/28/2023 09:24:[address] [place] [address] 10-28-2023 NoteS PROGRESS NOTE Assessment and Plan Dipti Sierra is a 77 y.o. male patient of Dayami Roe MD with history of DM, HLD, HTN and sleep apnea presents to ED with fatigue and shortness of breath found to have hemoglobin of 5.5 down from 11.9 in . Colon cancer with Multiple metastatic lesions S/p right hemicolectomy on 10/21/23 Colonoscopy with large cecal mass CT chest abdomen and pelvis with no PE, 6.7 cm cecal mass, mesenteric lymph nodes, multiple metastases to liver, mediastinal and hilar lymph nodes, likely pulmonary edema Biopsies taken of cecal mass GS rec removal of mass and port placement Rt hemicolectomy w/LN dissection, robotic small bowel resection due to involved small bowel, segment 5 liver resection and port placed done on 10/20 Pain poorly controlled on 10/22 Discontinued Dilaudid IV, changed to oxycodone pain intermittent order set 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 thereafter Had 2 large bowel movements on 10/26 a.m. Tolerating liquids now, will be advanced to regular diet per surgery 10/27 Continue Reglan and will scale back bowel regimen Possibly can discharge on 10/28 Encouraged ambulation Acute on chronic anemia Iron deficiency anemia Hemoglobin 5.5 down from 9.2(01/2022) Patient currently getting 2 units of PRBC transfused Guaiac neg Ferritin low GI consulted, recommend colonoscopy and EGD Patient on Protonix IV 40 mg twice daily EGD on 10/19 with normal mucosa Colonoscopy on 10/19 with 6 cm mass in cecum-likely cause of bleeding Hgb remaining stable Acute respiratory failure with hypoxia Acute pulmonary edema, CHF ruled out Patient notes shortness of breath for 2 years BNP of 700-WNL for age Chest x-ray with multiple lung nodules, the largest of which was approximately 5 cm Likely secondary to multiple lung metastases as well as pulmonary edema S/P IV lasix x 2 doses Required HHF post-op IS, lasix 20mg q8 hours x 3 and monitor Added Hycodan, Mucinex, PEP Presently remaining stable on 3 L nasal cannula, wean as able Lactic acidosis Initial 3.1 trend with fluids to 1.1 Likely secondary to bleed Type 2 diabetes Patient takes Actos and Amaryl at home Continue Sliding scale while here BG high on 10/27, will give one time dose of Lantus 5u If still remaining high, may need to add consistent basal coverage Dyslipidemia Continue atorvastatin while here. Patient takes Crestor 10 mg daily at home Hypertension Blood pressure on the low normal side. Patient's home regimen includes lisinopril-hydrochlorothiazide, however it is mentioned that he has a history of angioedema with lisinopril Start hydrochlorothiazide 12.5 mg alone on 10/26 BP now much better Consider adding losartan if needed BRYCE Gets cpap at night Continue while here Obesity Discharge Planning Medically Stable for Discharge Date: 10/28 Patient requires continued hospitalization due to: need to advance diet further now that ileus is resolving Discharge Location: Home, likely with [facility] Quality Measures DVT Prophylaxis: SCDs Pierce Catheter: absent Code Status full Primary Contact Information Subjective Patient reports significant improvement in symptoms today. Has actually had loose bowel movements. Per surgery, advancing diet and possibly going to discharge tomorrow Objective BP 134/70 Pulse 88 Temp 97.8 degrees F (36.6 degrees C) (Oral) Resp 18 Ht 5' 7 Wt 104.3 kg (230 lb) SpO2 94% BMI 36.02 kg/m Physical Examination General Appearance: alert; acute on chronically ill appearing; in no acute distress HEENT: Head- normocephalic; Eyes- EOMI, sclera anicteric; Throat- mucous membranes moist Cardiovascular: regular rate and rhythm; normal S1, S2; no murmurs, rubs, clicks or gallops; peripheral edema absent Respiratory: Diminished breath sounds bilaterally; on nasal cannula Abdomen: Protuberant, soft, nontender, moderately distended but improved from 10/25, wound dressing c/d/i Neurological: oriented x 3; normal speech; no focal findings or movement disorder noted Musculoskeletal: no significant deformity or tenderness to palpation Skin: normal coloration Psych: normal mood and affect AUTHENTICATED BY ARIAS FRANCO ON 10/28/2023 13:18:02[facility]04-30-2024 Note Attestation signed by Austen Hall MD at 10/27/2023 2:55 PM Seen and examined agree with below. Doing well. Reports 3 good bowel movements now and resolution of nausea. Has tolerated clear liquids. Sore. AFVS Labs reviewed, HGB stable. 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 Oncology following. Afebrile. WBC normal. Reports nausea has resolved, 2 large bowel movements overnight. No emesis. Tolerating sips. -Will discuss advancing diet. - continue reglan. Ambulate OOB. - pathology pending. INCIDENTAL FINDINGS: RESOLVED PROBLEMS: SURGERIES/PROCEDURES: Date Operation/Procedure Provider Name 10/21/2023 Robotic right hemicolectomy with central mesenteric lymph node dissection. Robotic small bowel resection. Robotic segment 5 liver wedge resection. Left-sided subclavian [id number] placement with fluoroscopic guidance Dr. Hall TODAY'S ASSESSMENT AND PLAN OF CARE: See above DISPOSITION - TBD CHIEF COMPLAINT/ HPI / PFSHx / EVENTS OVER LAST 24HRS: Up to chair on my evaluation, reports pain is controlled. Reports 2 large bowel movements overnight. Family at bedside REVIEW OF SYSTEMS: Other than the above items the remainder of the complete ROS is otherwise unchanged from admission. PHYSICAL EXAM: Temp: [97.6 degrees F (36.4 degrees C)-98.7 degrees F (37.1 degrees C)] 97.7 degrees F (36.5 degrees C) Heart Rate: [83-107] 94 Resp: [14-18] 18 BP: (137-159)/(63-76) 153/75 GENERAL: Appears age appropriate. NEUROLOGICAL: Alert and oriented X 3. No focal neurologic deficits noted. Head Eyes Ear Nose Throat: Head: Atraumatic, normocephalic. CARDIOVASCULAR: Regular rate and rhythm. 2+ pulses radial/DP/PT bilaterally. RESPIRATORY: Respiratory effort unlabored without use of accessory muscles. On nasal cannula. ABDOMINAL: Rounded, distended, mildly TTP. Incisions well approximated with indio. GENITOURINARY: Normal genitalia for age without lesion or trauma. MUSCULOSKELETAL: Extremities atraumatic without gross deformity x4. SKIN: Skin warm and dry. Intake/Output Summary (Last 24 hours) at 10/27/2023 1224 Last data filed at 10/27/2023 0300 Gross per 24 hour Intake -- Output 325 ml Net -325 ml IMAGING: No new imaging. LABS Lab Results Component Value Date WBC 8.63 10/27/2023 HGB 8.3 (L) 10/27/2023 HCT 30.7 (L) 10/27/2023 MCV 78.9 (L) 10/27/2023 EXTMCV 89.1 08/20/2017 PLT 305 10/27/2023 RBC 3.89 (L) 10/27/2023 Lab Results Component Value Date GLUCOSE 158 (H) 10/27/2023 CALCIUM 8.8 10/27/2023 NA 138 10/27/2023 K 4.1 10/27/2023 CL 94 (L) 10/27/2023 BUN 14 10/27/2023 CREATININE 0.89 10/27/2023 Lab Results Component Value Date ALT 8 10/20/2023 AST 22 10/20/2023 ALKPHOS 80 10/20/2023 BILITOT 0.7 10/20/2023 DAILY CHECKLIST: *Need for Restraints: na *Need for Urinary Catheter: na *Need for Central Access Devices: port *Stress Ulcer Prophylaxis: protonix *VTE Prophylaxis (Body mass index is 36.02 kg/m ., Estimated Creatinine Clearance: 66 mL/min (by C-G formula based on SCr of 0.89 mg/dL).): lovenox 40 mg daily *Home Medications Reconciled: per primary *Code Status: full code AUTHENTICATED BY AUSTEN HALL, ON 10/27/2023 14:55:[address] [place] [address] 10-27-2023 NoteHMS PROGRESS NOTE Assessment and Plan Dipti Sierra is a 77 y.o. male patient of Dayami Roe MD with history of DM, HLD, HTN and sleep apnea presents to ED with fatigue and shortness of breath found to have hemoglobin of 5.5 down from 11.9 in . Colon cancer with Multiple metastatic lesions S/p right hemicolectomy on 10/21/23 Colonoscopy with large cecal mass CT chest abdomen and pelvis with no PE, 6.7 cm cecal mass, mesenteric lymph nodes, multiple metastases to liver, mediastinal and hilar lymph nodes, likely pulmonary edema Biopsies taken of cecal mass GS rec removal of mass and port placement Rt hemicolectomy w/LN dissection, robotic small bowel resection due to involved small bowel, segment 5 liver resection and port placed done on 10/20 Pain poorly controlled on 10/22 Discontinued Dilaudid IV, changed to oxycodone pain intermittent order set 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 thereafter Had 2 large bowel movements on 10/26 a.m. Likely will advance diet per surgery Continue Reglan and bowel regimen Encouraged ambulation Acute on chronic anemia Iron deficiency anemia Hemoglobin 5.5 down from 9.2(01/2022) Patient currently getting 2 units of PRBC transfused Guaiac neg Ferritin low GI consulted, recommend colonoscopy and EGD Patient on Protonix IV 40 mg twice daily EGD on 10/19 with normal mucosa Colonoscopy on 10/19 with 6 cm mass in cecum-likely cause of bleeding Hgb remaining stable Acute respiratory failure with hypoxia Acute pulmonary edema, CHF ruled out Patient notes shortness of breath for 2 years BNP of 700-WNL for age Chest x-ray with multiple lung nodules, the largest of which was approximately 5 cm Likely secondary to multiple lung metastases as well as pulmonary edema S/P IV lasix x 2 doses Required HHF post-op IS, lasix 20mg q8 hours x 3 and monitor Added Hycodan, Mucinex, PEP Presently remaining stable on 3 L nasal cannula, wean as able Lactic acidosis Initial 3.1 trend with fluids to 1.1 Likely secondary to bleed Type 2 diabetes Patient takes Actos and Amaryl at home Continue Sliding scale while here Dyslipidemia Continue atorvastatin while here. Patient takes Crestor 10 mg daily at home Hypertension Blood pressure on the low normal side. Patient's home regimen includes lisinopril-hydrochlorothiazide, however it is mentioned that he has a history of angioedema with lisinopril Start hydrochlorothiazide 12.5 mg alone on 10/26 Consider adding losartan if needed BRYCE Gets cpap at night Continue while here Obesity Discharge Planning Medically Stable for Discharge Date: 10/26 Patient requires continued hospitalization due to: Possibly advancing diet but need to evaluate for ileus Discharge Location: Home Quality Measures DVT Prophylaxis: SCDs Pierce Catheter: absent Code Status full Primary Contact Information Subjective Patient reports significant improvement in symptoms today. He had 2 large bowel movements overnight. Otherwise denies any issues presently. Objective BP (!) 150/75 Pulse (!) 107 Temp 97.6 degrees F (36.4 degrees C) (Oral) Resp 16 Ht 5' 7 Wt 104.3 kg (230 lb) SpO2 90% BMI 36.02 kg/m Physical Examination General Appearance: alert; acute on chronically ill appearing; in no acute distress HEENT: Head- normocephalic; Eyes- EOMI, sclera anicteric; Throat- mucous membranes moist Cardiovascular: regular rate and rhythm; normal S1, S2; no murmurs, rubs, clicks or gallops; peripheral edema absent Respiratory: Diminished breath sounds bilaterally; on nasal cannula Abdomen: Protuberant, soft, nontender, moderately distended but improved from 10/25, wound dressing c/d/i Neurological: oriented x 3; normal speech; no focal findings or movement disorder noted Musculoskeletal: no significant deformity or tenderness to palpation Skin: normal coloration Psych: normal mood and affect AUTHENTICATED BY ARIAS FRANCO, ON 10/27/2023 13:17:[address] [place], [place] [id number] NoteOncology Inpatient Follow-up 10/26/2023 Lencho Rodriguez MD [facility] Patient: Dipti Sierra Date of : 1945 (78 y.o.) PCP: Dayami Roe MD SUBJECTIVE: History Since Last Visit: Patient has developed an ileus since last visit p.o. intake is being held will wait till his ileus resolved no new pain. Final pathology returned shows adenocarcinoma of the colon with liver mets Review of Systems: A Complete review of systems was performed and is negative except for what is listed in the HPI. OBJECTIVE: Physical Examination: BP (!) 159/76 Pulse 83 Temp 98.3 degrees F (36.8 degrees C) (Oral) Resp 14 Ht 5' 7 Wt 104.3 kg (230 lb) SpO2 95% BMI 36.02 kg/m ECOG Gen: NAD, resting comfortably HEENT: NCAT, no temporal wasting, anicteric sclerae, mmm, no op lesions Neck: supple, no thyromegaly or LAD Lymphatics: no cervical, axillary, or inguinal adenopathy Chest: CTAB, no w/r/r, no respiratory distress CV: RRR, no m/r/g, normal S1, S2 Abd: soft, nontender, nondistended, +BS Ext: wwp, no c/c/e Skin: no rashes or lesions Neuro: Alert and oriented x4, no focal deficits, moves all four extremities Psych: Mood normal. Laboratory and Additional Data Reviewed: Reviewed 10/26/23 4:55 PM: Laboratory Lab Results Component Value Date WBC 5.81 10/26/2023 HGB 8.1 (L) 10/26/2023 HCT 30.5 (L) 10/26/2023 MCV 79.2 (L) 10/26/2023 EXTMCV 89.1 08/20/2017 PLT 285 10/26/2023 RBC 3.85 (L) 10/26/2023 Lab Results Component Value Date GLUCOSE 176 (H) 10/26/2023 CALCIUM 8.8 10/26/2023 NA 137 10/26/2023 K 4.0 10/26/2023 CL 94 (L) 10/26/2023 BUN 10 10/26/2023 CREATININE 0.84 10/26/2023 Lab Results Component Value Date ALT 8 10/20/2023 AST 22 10/20/2023 ALKPHOS 80 10/20/2023 BILITOT 0.7 10/20/2023 ASSESSMENT/PLAN: Dipti Sierra 78 y.o. male with history of metastatic colorectal cancer presently has an ileus that will resolve soon would consider IV iron in the near future wait any chemotherapy for 3 to 4 weeks AUTHENTICATED BY LENCHO RODRIGUEZ, ON 10/26/2023 16:56:[address] [place] [address] 10-26-2023 Note Attestation signed by Austen Hall MD at 10/26/2023 2:56 PM Seen and examined agree with below. Patient with ongoing bloating. Did report some nausea this am, currently not experiencing. No bowel function yet. KUB images reviewed, diffuse small and large bowel gas consistent with ileus. Pathology reviewed with patient and family today. Confirmed stage IV colon cancer that were suspicious for. HGB remains stable, WBC normal. 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 Oncology following. Afebrile. WBC normal. With nausea this morning, minimal flatus. Increased abdominal distention. - back down to sips and chips. - continue reglan. Ambulate OOB. - pathology pending. INCIDENTAL FINDINGS: RESOLVED PROBLEMS: SURGERIES/PROCEDURES: Date Operation/Procedure Provider Name 10/21/2023 Robotic right hemicolectomy with central mesenteric lymph node dissection. Robotic small bowel resection. Robotic segment 5 liver wedge resection. Left-sided subclavian [id number]-V-Ejor placement with fluoroscopic guidance Dr. Hall TODAY'S ASSESSMENT AND PLAN OF CARE: See above DISPOSITION - TBD CHIEF COMPLAINT/ HPI / PFSHx / EVENTS OVER LAST 24HRS: Resting in recliner. Reports feeling increased distention with nausea this morning. Had been up walking prior to our visit. REVIEW OF SYSTEMS: Other than the above items the remainder of the complete ROS is otherwise unchanged from admission. PHYSICAL EXAM: Temp: [97.6 degrees F (36.4 degrees C)-98.6 degrees F (37 degrees C)] 97.6 degrees F (36.4 degrees C) Heart Rate: [74-85] 81 Resp: [14-20] 16 BP: (134-148)/(73-80) 144/77 GENERAL: Appears age appropriate. NEUROLOGICAL: Alert and oriented X 3. No focal neurologic deficits noted. GCS = 15 Head Eyes Ear Nose Throat: Head: Atraumatic, normocephalic. CARDIOVASCULAR: Regular rate and rhythm. 2+ pulses radial/DP/PT bilaterally. RESPIRATORY: Respiratory effort unlabored without use of accessory muscles. On nasal cannula. ABDOMINAL: Rounded, distended, mildly TTP. Incisions well approximated with indio. GENITOURINARY: Normal genitalia for age without lesion or trauma. MUSCULOSKELETAL: Extremities atraumatic without gross deformity x4. SKIN: Skin warm and dry. Intake/Output Summary (Last 24 hours) at 10/26/2023 0918 Last data filed at 10/26/2023 0758 Gross per 24 hour Intake 1365 ml Output 1575 ml Net -210 ml IMAGING: No new imaging. LABS Lab Results Component Value Date WBC 5.81 10/26/2023 HGB 8.1 (L) 10/26/2023 HCT 30.5 (L) 10/26/2023 MCV 79.2 (L) 10/26/2023 EXTMCV 89.1 08/20/2017 PLT 285 10/26/2023 RBC 3.85 (L) 10/26/2023 Lab Results Component Value Date GLUCOSE 176 (H) 10/26/2023 CALCIUM 8.8 10/26/2023 NA 137 10/26/2023 K 4.0 10/26/2023 CL 94 (L) 10/26/2023 BUN 10 10/26/2023 CREATININE 0.84 10/26/2023 Lab Results Component Value Date ALT 8 10/20/2023 AST 22 10/20/2023 ALKPHOS 80 10/20/2023 BILITOT 0.7 10/20/2023 DAILY CHECKLIST: *Need for Restraints: na *Need for Urinary Catheter: na *Need for Central Access Devices: port *Stress Ulcer Prophylaxis: protonix *VTE Prophylaxis (Body mass index is 36.02 kg/m ., Estimated Creatinine Clearance: 69.9 mL/min (by C-G formula based on SCr of 0.84 mg/dL).): lovenox 40 mg daily *Home Medications Reconciled: per primary *Code Status: full code AUTHENTICATED BY AUSTEN HALL, ON 10/26/2023 14:56:00[facility] 10-26-2023 NoteS PROGRESS NOTE Assessment and Plan Dipti Sierra is a 77 y.o. male patient of Dayami Roe MD with history of DM, HLD, HTN and sleep apnea presents to ED with fatigue and shortness of breath found to have hemoglobin of 5.5 down from 11.9 in . Colon cancer with Multiple metastatic lesions S/p right hemicolectomy on 10/21/23 Concern for postoperative ileus Colonoscopy with large cecal mass CT chest abdomen and pelvis with no PE, 6.7 cm cecal mass, mesenteric lymph nodes, multiple metastases to liver, mediastinal and hilar lymph nodes, likely pulmonary edema Biopsies taken of cecal mass GS rec removal of mass and port placement Rt hemicolectomy w/LN dissection, robotic small bowel resection due to involved small bowel, segment 5 liver resection and port placed done on 10/20 Pain poorly controlled on 10/22 Discontinued Dilaudid IV, changed to oxycodone pain intermittent order set Final pathology of 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 at this time Aggressive bowel regimen Acute on chronic anemia Iron deficiency anemia Hemoglobin 5.5 down from 9.2(01/2022) Patient currently getting 2 units of PRBC transfused Guaiac neg Ferritin low GI consulted, recommend colonoscopy and EGD Patient on Protonix IV 40 mg twice daily EGD on 10/19 with normal mucosa Colonoscopy on 10/19 with 6 cm mass in cecum-likely cause of bleeding Hb stable IV iron. Follow-up CBC. Acute respiratory failure with hypoxia Acute pulmonary edema, CHF ruled out Patient notes shortness of breath for 2 years BNP of 700-WNL for age Chest x-ray with multiple lung nodules, the largest of which was approximately 5 cm Likely secondary to multiple lung metastases as well as pulmonary edema S/P IV lasix x 2 doses Required HHF post-op IS, lasix 20mg q8 hours x 3 and monitor Added Hycodan, Mucinex, PEP Lactic acidosis Initial 3.1 trend with fluids to 1.1 Likely secondary to bleed Type 2 diabetes Patient takes Actos and Amaryl at home Continue Sliding scale while here Dyslipidemia Continue atorvastatin while here. Patient takes Crestor 10 mg daily at home Hypertension Blood pressure on the low normal side. Consider restarting lisinopril/hydrochlorothiazide if BP increases BRYCE Gets cpap at night Continue while here Obesity Discharge Planning Medically Stable for Discharge Date: 10/26 Patient requires continued hospitalization due to: Possibly advancing diet but need to evaluate for ileus Discharge Location: Home Quality Measures DVT Prophylaxis: SCDs Pierce Catheter: absent Code Status full Primary Contact Information Subjective Patient reports bloating and distention today. Otherwise denies any significant issues. Objective BP (!) 144/77 Pulse 81 Temp 97.6 degrees F (36.4 degrees C) (Oral) Resp 18 Ht 5' 7 Wt 104.3 kg (230 lb) SpO2 93% BMI 36.02 kg/m Physical Examination General Appearance: alert; acute on chronically ill appearing; in no acute distress HEENT: Head- normocephalic; Eyes- EOMI, sclera anicteric; Throat- mucous membranes moist Cardiovascular: regular rate and rhythm; normal S1, S2; no murmurs, rubs, clicks or gallops; peripheral edema absent Respiratory: Diminished breath sounds bilaterally; on heated high flow Abdomen: Protuberant, soft, mildly tender, moderately distended, wound dressing c/d/i Neurological: oriented x 3; normal speech; no focal findings or movement disorder noted Musculoskeletal: no significant deformity or tenderness to palpation Skin: normal coloration Psych: normal mood and affect AUTHENTICATED BY ARIAS FRANCO, ON 10/26/2023 16:07:[address] [place], [place] [id number] Note* Addendum Note - Ty Betancourt CRNA - 10/23/2023 9:09 AM EDT Addendum created 10/23/23908 by Ty Betancourt CRNA Intraprocedure Meds edited, Orders acknowledged in Narrator [facility] Work Phone: 1(785) 580-340804-26-2024 Miscellaneous Notes* Addendum Note - Ty Betancourt CRNA - 10/23/2023 9:09 AM EDT Addendum created 10/23/23908 by Ty Betancourt CRNA Intraprocedure Meds edited, Orders acknowledged in Narrator documented in this [id number] Anesthesiology Postoperative evaluation and management note* Anesthesia Postprocedure Evaluation - Melissa Pereira MD - 10/21/2023 5:49 PM EDT Images from the original note were not included. Anesthesia Post Evaluation PACU Vitals 10/21/2023 1721 - 10/21/2023 1730 10/21/2023 1727 10/21/2023 1730 BP: 116/63 140/66 Temp: 36.6 C -- Pulse: 94 95 Resp: 18 18 SpO2: 91 % 91 % MAP (mmHg): 80 87 * * Refer to nursing documentation for PACU vitals * * Patient participation: patient participated Mental status: awake Pain management: adequate Anesthetic complications: no Nausea / vomiting: no Respiratory / airway status: airway patent Postoperative hydration: acceptable Comment: Patient has satisfactorily recovered from his anesthetic. [facility] Work Phone: [phone]) 257-961404-24-2024 Surgical operation note* Anesthesia Postprocedure Evaluation - Melissa Pereira MD - 10/21/2023 5:49 PM EDT Images from the original note were not included. Anesthesia Post Evaluation PACU Vitals 10/21/2023 1721 - 10/21/2023 1730 10/21/2023 1727 10/21/2023 1730 BP: 116/63 140/66 Temp: 36.6 C -- Pulse: 94 95 Resp: 18 18 SpO2: 91 % 91 % MAP (mmHg): 80 87 * * Refer to nursing documentation for PACU vitals * * Patient participation: patient participated Mental status: awake Pain management: adequate Anesthetic complications: no Nausea / vomiting: no Respiratory / airway status: airway patent Postoperative hydration: acceptable Comment: Patient has satisfactorily recovered from his anesthetic. * Anesthesia Procedure Notes - Niles Chapman AA - 10/21/2023 12:35 PM EDTAssociated Order(s): ETT Airway ETT Airway Mask ventilation: ventilated by mask Technique: video laryngoscopy and intubating stylet Type: cuffed oral Tube size: 7.5 mm Final laryngoscope: video laryngoscope 4 Bishop Location: oral Final grade: 1 Insertion attempts: 1 Placement verification: end tidal CO2, auscultation, symmetrical chest wall movement and cuff palpation Secured at: 24 cm (measured from the lips) Secured by: tape Bite block: none Lip/tooth/tongue trauma: no Comments: Darin Jarquin *See MAR for medication administration * Anesthesia Preprocedure Evaluation - Melissa Pereira MD - 10/21/2023 11:26 AM EDT ANESTHESIA PREPROCEDURE EVALUATION Anesthesia Plan ASA: 3 (emergent) Type: general Airway: endotracheal tube Induction: intravenous Anesthetic plan and risks as outlined in the consent discussed with: patient Plan discussed with: CAA Physical Exam Airway Mallampati: II Neck ROM: full Cardiovascular Rhythm: regular Pulmonary Breath sounds are clear to auscultation Neurological Mental Status: alert Dental poor dentition Review of Systems / Medical History - Reviewed: ECG, patient summary, anesthesia history, nursing notes, medical history, H&P and labs / results - No history of anesthetic complications Pulmonary Positive: sleep apnea Neurological / Psychological - negative Cardiovascular Positive: hypertension hyperlipidemia Gastrointestinal / Hepatic / Renal NPO Status > 8 hours Comment: Cecal Mass Positive: GERD Endocrine / Musculoskeletal Positive: type 2 diabetes anemia Other Negative: smoker documented in this [id number] Procedure anesthesia Narrative * Procedure Summary Procedure Name Responsible Anesthesiologist Anesthesia Start Time Anesthesia Stop Time COLECTOMY RIGHT ROBOTIC XI AND SMALL BOWEL RESECTION WITH LYMPH NODE DISSECTION AND LIVER BIOPSY (Right: Abdomen) Melissa Pereira MD 10/21/23 1219 10/21/23 1730 Events Date Time Event Comment 10/21/2023 1129 1154 AN Equip Check 1219 An Start 1219 Patient Verification 1219 An Start Data 1223 An Induction 1228 An Intubation 1232 Anesthesia Ready 1554 an lencho now Reverse Trendel enburg PSR. 1715 Emergence MH OR 10 1718 An Extubation 1721 an stop data 1729 Handoff 1730 An Stop Meds Name Total fentaNYL 100 mcg lidocaine 2% 100 mg propofol 140 mg rocuronium 150 mg dexamethasone 8 mg ondansetron 4 mg sugammadex 300 mg ceFAZolin (ANCEF) IVPB 2 g (premix) 2,00 0 mg metroNIDAZOLE (FLAGYL) IVPB 500 mg 0 mg glycopyrrolate 0.1 mg acetaminophen 1,000 mg albuterol 6 puff indocyanine green 10 mg HYDROmorphone 0.5 mg cefoTEtan 1g 2,000 mg lactated Ringers infusion 1,200 mL * Agents No agents on file. * Blood No blood administrations on file. Lines, Drains, and Airways Type Details Placement Removal Peripheral IV Placement Date: 09/28 08/22; Placement Time: 1016; Orientation: Right; Location: Antecubital; Site Prep: Chlorhexidine ; Local Anes: None; Inserted by: LANDEN Lal; Patient Tolerance: Tolerated well 10/19/23 1016 by Ros Yin RN Wound 10/21/23; 1340; x5 t rocar sites; Surgical Wou; Abdomen LUQ; Surgical Jackie; Sutures, [place]; 4x4, medipore 10/21/23 1340 by Tiffanie Reese RN Wound 10/21/23; 1612; 1; Surgical Wou; Abdomen; Lower, Medial; Surgical Jackie; Sutures, [place]; 4x4, medipore 10/21/23 1612 by Tiffanie Reese RN Wound 10/21/23; 1700; 1; Surgical Wou; Clavicle; Left; Surgical Jackie; Sutures, Surgical Adhesive; dermabond 10/21/23 1700 by Tiffanie Reese RN Port A Cath 10/21/23; 1700; Chlorhexidine ; Power Port; Left; Subclavian; Dr. Hall 10/21/23 1700 by Tiffanie Reese RN Peripheral IV Placement Date: 09/28 08/22; Placement Time: 0856; Orientation: Distal, Left, Posterior; Location: Forearm; Site Prep: Chlorhexidine ; Local Anes: None; Inserted by: ALESSANDRA Yanez; Patient Tolerance: Tolerated well; Removal Date: 10/23/23; Removal Time: 0543; Removal Reason: Other (Comment) 10/19/23 0856 by Ros Yin RN 10/23/23 0543 by Catie Sarmiento RN Urethral Catheter Placement Date: 09/28 10/20; Placement Time: 1230; Inserted by: Tiffanie Reese RN; Type: Latex; Size: 16 Fr.; Balloon Size: 10 mL; Urine Returned: Yes; Removal Date: 10/21/23; Removal Time: 171810/21/23 1230 by Tiffanie Reese RN 10/21/23 1719 by Tiffanie Reese RN ETT Placement Date: 09/28 10/20; Placement Time: 1236 (created via procedure documentation); Mask Ventilation: Ventilated by mask; Type: Cuffed, Oral; Tube Size: 7.5 mm; Grade View: 1; Insertion Attempts: 1; Removal Date: 10/21/23; Removal Time: 17110/21/23 1236 by Niles Chapman AA 10/21/23 1718 by Ty Betancourt CRNA Feeding Tube 10/21/23; 1700; Righ t nare; 10/22/23; 1005; Per order 10/21/23 1700 by Sandi Echols RN 10/22/23 1005 by Sandi Kendrick RN documented in this encounter [id number] Anesthesiology procedure note* Anesthesia Procedure Notes - Niles Chapman AA - 10/21/2023 12:35 PM EDTAssociated Order(s): ETT Airway ETT Airway Mask ventilation: ventilated by mask Technique: video laryngoscopy and intubating stylet Type: cuffed oral Tube size: 7.5 mm Final laryngoscope: video laryngoscope 4 Bishop Location: oral Final grade: 1 Insertion attempts: 1 Placement verification: end tidal CO2, auscultation, symmetrical chest wall movement and cuff palpation Secured at: 24 cm (measured from the lips) Secured by: tape Bite block: none Lip/tooth/tongue trauma: no Comments: Darin Jarquin *See MAR for medication administration [facility] Work Phone: [phone] Anesthesiology Preoperative evaluation and management note* Anesthesia Preprocedure Evaluation - Melissa Pereira MD - 10/21/2023 11:26 AM EDT ANESTHESIA PREPROCEDURE EVALUATION Anesthesia Plan ASA: 3 (emergent) Type: general Airway: endotracheal tube Induction: intravenous Anesthetic plan and risks as outlined in the consent discussed with: patient Plan discussed with: CAA Physical Exam Airway Mallampati: II Neck ROM: full Cardiovascular Rhythm: regular Pulmonary Breath sounds are clear to auscultation Neurological Mental Status: alert Dental poor dentition Review of Systems / Medical History - Reviewed: ECG, patient summary, anesthesia history, nursing notes, medical history, H&P and labs / results - No history of anesthetic complications Pulmonary Positive: sleep apnea Neurological / Psychological - negative Cardiovascular Positive: hypertension hyperlipidemia Gastrointestinal / Hepatic / Renal NPO Status > 8 hours Comment: Cecal Mass Positive: GERD Endocrine / Musculoskeletal Positive: type 2 diabetes anemia Other Negative: smoker [id number] History and physical note* Austen Hall MD - 10/21/2023 8:25 AM EDT INTERVAL HISTORY AND PHYSICAL Patient Name: Dipti Sierra Admit Date: [id number] MR #: [id number] : 1945 The H&P has been reviewed and the patient has been examined. I have re-assessed the patient andnoted the following changes: see note from today It is appropriate to proceed with the planned procedure. Austen Hall MD 10/21/2023 8:25 AM Source Note - Juan Tinajero, AAKASH - 10/20/2023 5:43 PM EDT [facility] SURGICAL HISTORY & PHYSICAL/CONSULTATION NOTE Cecal mass: C-scope today with large cecal mass, no obstruction or perforation noted, pathology pending CT CAP, 6.7 cm cecal mass, enlarged mesenteric lymph nodes right lower quadrant, numerous metastatic nodules bilateral lungs, multiple ill-defined metastatic lesions in the liver Oncology following, recommending surgical consult and possible Port-A-Cath placement CEA pending Final surgical plan to follow, Dr. Hall to review imaging and discuss with oncology. Surgery Admitted with these risk variables:None. Please see assessment and plan for further details. CHIEF COMPLAINT: Shortness of breath HISTORY OF PRESENT ILLNESS / INJURY (HPI): 77-year-old male patient with past medical history of diabetes, hyperlipidemia, hypertension, BRYCE and past surgical history of appendectomy arrived to [facility] emergency department on 10/18 with complaints of shortness of breath. He was found to be anemic at that time and GI was consulted for colonoscopy. Colonoscopy 10/19 shows a large cecal mass, nonobstructing, nonbleeding, biopsies and pathology is pending. CT chest abdomen pelvis was obtained and shows likely metastatic disease to liver, lymph nodes, and lungs. Oncology consulted recommended surgery consult for possible colon resection. No abdominal pain, denies any bloody bowel movements, no AC/AP medications at home. Discussed with Dr. Hall, final surgical plan pending. PAST MEDICAL HISTORY (PMH): Past Medical History: Diagnosis Date Diabetes mellitus (HCC) Hyperlipidemia Hypertension Sleep apnea has a CPAP Past Surgical History: Procedure Laterality Date ANKLE ARTHROSCOPY W/ OPEN REPAIR Left 1967 APPENDECTOMY 1961 CARDIAC CATHETERIZATION N/A 02/10/2022 Procedure: Left Heart Cath Possbile PTCA/Stent; Surgeon: Baljinder Banegas MD; Location: [facility]; Service: Cardiovascular CARDIAC CATHETERIZATION N/A 02/10/2022 Procedure: Coronary Angiogram; Surgeon: Baljinder Banegas MD; Location: [facility]; Service: Cardiovascular CARDIAC CATHETERIZATION N/A 02/10/2022 Procedure: Instant Wave Free Ratio; Surgeon: Baljinder Banegas MD; Location: [facility]; Service: Cardiovascular CARDIAC CATHETERIZATION N/A 02/10/2022 Procedure: Fractional Flow Ruffin; Surgeon: Baljinder Banegas MD; Location: [facility]; Service: Cardiovascular CT COLONOSCOPY 03/01/[address] COLONOSCOPY 07/16/2018 CT COLONOSCOPY KNEE ARTHROPLASTY Right 1999 Social History Tobacco Use Smoking status: Never Smokeless tobacco: Never Vaping Use Vaping Use: Never used Substance Use Topics Alcohol use: Never Drug use: Never Family History Problem Relation Age of Onset Heart attack Mother MEDICATIONS: No current facility-administered medications on file prior to encounter. Current Outpatient Medications on File Prior to Encounter Medication Sig Dispense Refill aspirin 81 MG EC tablet Take 1 (one) tablet (81 mg total) by mouth every morning . aspirin-caffeine (Kia Back and Body) 500-32.5 mg Tab Take 1 tablet by mouth as needed . azelastine (ASTELIN) 137 mcg (0.1 %) nasal spray 2 (two) sprays by Each Nare route 2 (two) times a day . glimepiride (AMARYL) 4 MG tablet Take 1 Unspecified by mouth daily . omeprazole (PRILOSEC) 40 MG capsule Take 1 (one) capsule (40 mg total) by mouth daily with dinner . pioglitazone (ACTOS) 30 MG tablet Take 1 (one) tablet (30 mg total) by mouth every morning . rosuvastatin (CRESTOR) 10 MG tablet Take 1 (one) tablet (10 mg total) by mouth every morning . zolpidem (AMBIEN) 10 mg tablet Take 1 (one) tablet (10 mg total) by mouth nightly . acetaminophen (TYLENOL) 500 MG tablet Take 1 (one) tablet (500 mg total) by mouth as needed for pain . famotidine (PEPCID) 20 MG tablet Take 1 (one) tablet (20 mg total) by mouth 2 (two) times a day for10 days . 20 tablet 0 lisinopriL-hydrochlorothiazide (PRINZIDE,ZESTORETIC) 10-12.5 mg per tablet Take 1 Unspecified by mouth daily . potassium chloride 10 MEQ CR tablet Take 1 Unspecified by mouth . traZODone (DESYREL) 50 MG tablet Take 0.5 (one-half) tablet (25 mg total) by mouth nightly . ALLERGIES: Allergies Allergen Reactions Lisinopril Angioedema Metformin GI Intolerance REVIEW OF SYSTEMS: COVID19 Screen: Negative for fever, cough, SOB, exposure. Constitutional Symptoms: Negative for unexplained falls, weight loss Eyes: Negative for eye pain or vision changes Ears, Nose, Mouth, Throat: Negative for rhinorrhea, nasal pain, dysphagia, hoarseness Cardiovascular: Negative for chest pain, orthopnea, edema Respiratory: Positive for shortness of breath, denies chest pain Gastrointestinal: Slight abdominal bloating, no nausea or vomiting. Genitourinary: Negative for dysuria, hematuria Musculoskeletal: Negative for pain, joint edema Skin/Breast: Negative for rash, itching, lesions Neurological: Negative for paresthesia, paralysis, loss of bowel or bladder control, loss of consciousness Psychiatric: Negative for depression, anxiety, or suicidal ideations Endocrine: Negative for heat/cold intolerance, polydipsia, polyphagia, polyuria Hematologic/Lymphatic: Negative for anticoagulant use, antiplatelet use, family hx of clotting or bleeding disorders Allergic/Immunologic: Allergies reviewed, no use of immunosuppressants or active chemotherapy Other than the above items, the remainder of a complete review of systems is otherwise negative. PHYSICAL EXAM: BP 134/75 Pulse 70 Temp 98.1 F (36.7 C) (Oral) Resp (!) 22 Ht 5' 7 Wt 104.3 kg (230 lb) SpO2 96% BMI 36.02 kg/m Body mass index is 36.02 kg/m . GENERAL: Appears age appropriate. No acute distress. NEUROLOGICAL: Alert and oriented X 3. Follows commands with extremities x4, equal strength. Pupils equal, round, reactive to light. EOMI. No focal neurologic deficits noted. Head Eyes Ear Nose Throat: Head: Atraumatic, normocephalic. Eyes: Conjunctivae/sclerae/corneas clear. Ears: External ear normal. Hearing within normal limits for patient. No drainage. Nose: nares normal, septum midline, no drainage or nasal tenderness. Throat: phonation normal Neck: Supple, trachea midline, no midline tenderness, step offs, bony crepitus. CARDIOVASCULAR: Regular rate and rhythm. No clicks, rubs, murmurs or gallops noted. No peripheral edema noted. 2+ pulses radial/DP/PT bilaterally. RESPIRATORY: lungs clear, equal chest rise, on 2 liters nc. ABDOMINAL: Rounded, soft, nontender, slightly distended. normal bowel sounds. No guarding or peritoneal signs. +BM/+flatus GENITOURINARY: Normal genitalia for age without lesion or trauma. Rectal exam - defer MUSCULOSKELETAL: Extremities atraumatic without gross deformity x4. ROM appropriate for age. No clubbing, cyanosis or joint edema. SPINE: No midline tenderness, stepoffs, or bony tenderness to thoracic and lumbar spine SKIN: Skin warm and dry. No rashes or lesions. IMAGING STUDIES: I have reviewed the following: Reviewed LABORATORY STUDIES: Lab Results Component Value Date WBC 9.77 10/20/2023 HGB 8.0 (L) 10/20/2023 HCT 28.9 (L) 10/20/2023 MCV 72.9 (L) 10/20/2023 EXTMCV 89.1 08/20/2017 PLT 318 10/20/2023 RBC 3.80 (L) 10/20/2023 Lab Results Component Value Date GLUCOSE 137 (H) 10/20/2023 CALCIUM 8.0 (L) 10/20/2023 NA 139 10/20/2023 K 4.0 10/20/2023 CL 103 10/20/2023 BUN 24 10/20/2023 CREATININE 1.00 10/20/2023 Lab Results Component Value Date ALT 21 08/20/2017 AST 14 08/20/2017 * Enriqueta العراقي MD - 10/19/2023 11:[address] [facility] HISTORY AND PHYSICAL -- [facility] Patient Name: Dipti Sierra : 1945 MR #: [id number] Admit Date: 10/19/2023 Physicians: Dayami Roe MD (Family); No ref. provider found (Referring) Dipti Sierra is a 77 y.o. male patient of Dayami Roe MD with history of DM, HLD, HTNand sleep apnea presents to ED with fatigue and shortness of breath found to have hemoglobin of 5.5down from 11.9 in . Assessment and plan Acute on chronic anemia Iron deficiency anemia Hemoglobin 5.5 down from 9.2(01/2022) Patient currently getting 2 units of PRBC transfused Guaiac negative per ED physician. Stool for Hemoccult Ferritin low Patient evaluated by GI, no signs of active bleeding patient probably has slow intermittent GI blood loss Plan for EGD and colonoscopy tomorrow Patient on Protonix IV 40 mg twice daily Type 2 diabetes Patient takes Actos and Amaryl at home Continue Sliding scale while here Dyslipidemia Continue atorvastatin while here. Patient takes Crestor 10 mg daily at home Hypertension Blood pressure on the low normal side. Hold lisinopril/hydrochlorothiazide while here Residence prior to admission: house or apartment Was patient transferred from outlying hospital or ED no Quality Measures DVT Prophylaxis: SCDs Pierce Catheter: absent Medication Reconciliation: Verified Admitted with these risk variables:None. Please see assessment and plan for further details. Estimated Date of Discharge greater than 2 midnights Code Status Full Code; code status verified on 10/19/2023 with patient (capacity intact) Chief Complaint fatigue and shortness of breath History of Present Illness Dipti Sierra is a 77 y.o. male patient of Dayami Roe MD with history of DM, HLD, HTNand sleep apnea presents to ED with fatigue and shortness of breath found to have hemoglobin of 5.5down from 11.9 in . Patient admits to progressive fatigue and shortness of breath over the past year becoming worse this past few weeks. he denies any melena or red blood per rectum. No nausea vomiting weight loss dysphagia or change in bowel habits. His last colonoscopy was on 07/16/2018with Dr. Cano and noted to have 5 mm cecal polyps and diverticulosis. He denies family history ofcolorectal cancer. Patient denies any fever or chills. Denies any abdominal pain, chest pain syncope or dizziness Past Medical History Past Medical History: Diagnosis Date Diabetes mellitus (HCC) Hyperlipidemia Hypertension Sleep apnea has a CPAP Past Surgical History Past Surgical History: Procedure Laterality Date ANKLE ARTHROSCOPY W/ OPEN REPAIR Left 1967 APPENDECTOMY 1961 CARDIAC CATHETERIZATION N/A 02/10/2022 Procedure: Left Heart Cath Possbile PTCA/Stent; Surgeon: Baljinder Banegas MD; Location: [facility]; Service: Cardiovascular CARDIAC CATHETERIZATION N/A 02/10/2022 Procedure: Coronary Angiogram; Surgeon: Baljinder Banegas MD; Location: [facility]; Service: Cardiovascular CARDIAC CATHETERIZATION N/A 02/10/2022 Procedure: Instant Wave Free Ratio; Surgeon: Baljinder Banegas MD; Location: [facility]; Service: Cardiovascular CARDIAC CATHETERIZATION N/A 02/10/2022 Procedure: Fractional Flow Ruffin; Surgeon: Baljinder Banegas MD; Location: [facility]; Service: Cardiovascular CT COLONOSCOPY 03/01/[address] COLONOSCOPY 07/16/2018 CT COLONOSCOPY KNEE ARTHROPLASTY Right 2000 Family History Family History Problem Relation Age of Onset Heart attack Mother Social History Social History Tobacco Use Smoking Status Never Smokeless Tobacco Never Social History Substance and Sexual Activity Alcohol Use Never Social History Substance and Sexual Activity Drug Use Never Allergy Information I have reviewed the patient's allergies. Lisinopril and Metformin Home Medications Home medications were reviewed. Review Of Systems All relevant systems have been reviewed and are negative except as noted in HPI or below Physical Examination BP 120/63 Pulse 73 Temp 98.2 F (36.8 C) (Oral) Resp (!) 23 Ht 5' 7 Wt 104.3 kg (230 lb) SpO2 (S) 94% Comment: 3L BMI 36.02 kg/m General Appearance: alert; well appearing; in no acute distress HEENT: Head- normocephalic; Eyes- EOMI, sclera anicteric; Throat- mucous membranes moist Cardiovascular: regular rate and rhythm; normal S1, S2; no murmurs, rubs, clicks or gallops; peripheral edema absent Respiratory: lungs clear to auscultation; without wheezes, rales or rhonchi; on nasal cannula Abdomen: soft, non-tender, non-distended Neurological: oriented x 3; normal speech; no focal findings or movement disorder noted Musculoskeletal: no significant deformity or tenderness to palpation Skin: normal coloration Psych: normal mood and affect documented in this [id number] Nurse Note* Vianey Mabry RN - 10/20/2023 2:45 PM EDT Patient escorted back to inpatient room at this time via cart. * Vianey Mabry RN - 10/20/2023 2:35 PM EDT Report given to primary RN at this time. * Vianey Mabry RN - 10/20/2023 2:[address] Rojas at bedside updating patient at this time. * Vianey Mabry RN - 10/20/2023 1:36 PM EDT Vitals and monitoring by anesthesia/ICEBOX MAN. See their charting. documented in this [id number] Emergency department Note* Geraldine Robledo RN - 10/19/2023 8:14 PM EDT Hourly rounding assessment completed on the patient. [x] Patient updated on plan of care [x] All comfort needs addressed [x] Patient updated on duration of visit All questions answered, patient denies further needs. Call light within reach. * Desire Amador PSA - 10/19/2023 6:16 PM EDT Hourly rounding assessment completed on the patient. [x] Patient updated on plan of care [x] All comfort needs addressed [] Patient updated on duration of visit All questions answered, patient denies further needs. Call light within reach. * Louisa Sandoval RN - 10/19/2023 6:03 PM EDT Call placed to RN to give report, awaiting room to be clean * Desire Amador PSA - 10/19/2023 3:13 PM EDT Hourly rounding assessment completed on the patient. [x] Patient updated on plan of care [x] All comfort needs addressed [] Patient updated on duration of visit All questions answered, patient denies further needs. Call light within reach. * Santiago Perez - 10/19/2023 2:13 PM EDT Ordered clear liquid meal tray for this pt at this time. * Carolina Newman RN - 10/19/2023 2:00 PM EDT Hourly rounding assessment completed on the patient. [x] Patient updated on plan of care [x] All comfort needs addressed [] Patient updated on duration of visit All questions answered, patient denies further needs. Call light within reach. * Carolina Newman RN - 10/19/2023 1:00 PM EDT Hourly rounding assessment completed on the patient. [x] Patient updated on plan of care [x] All comfort needs addressed [x] Patient updated on duration of visit All questions answered, patient denies further needs. Call light within reach. * Ros Yin RN - 10/19/2023 10:13 AM EDT Hourly rounding assessment completed on the patient. [x] Patient updated on plan of care [x] All comfort needs addressed [x] Patient updated on duration of visit All questions answered, patient denies further needs. Call light within reach. * Garrick Caruso MD - 10/19/2023 8:56 AM EDTAssociated Order(s): EKG 12-lead; Critical Care [facility] EMERGENCY DEPARTMENT - Emergency Medicine Attending Note: NAME: Dipti Sierra 77 y.o. CSN: [id number] PCP: Dayami Roe MD History: Chief Complaint: Shortness of Breath HPI: The history was obtained from the patient. Dipti is a 77 y.o. male who presents with a chief complaint of Shortness of Breath. Shortness of Breath Associated symptoms: cough Associated symptoms: no abdominal pain, no chest pain, no fever, no headaches, no rash, no vomitingand no wheezing 77-year-old presented for evaluation of shortness of breath and coughing for the past few weeks. However, today, he felt like he could only catch his breath, and presented here for further evaluation. Patient found in triage to have an SpO2 of 79% on room air. Patient reports no history of any pulmonary or cardiac problems. ROS: Review of Systems Constitutional: Positive for fatigue. Negative for activity change, appetite change and fever. HENT: Positive for congestion. Negative for facial swelling. Eyes: Negative for photophobia, pain, redness and visual disturbance. Respiratory: Positive for cough and shortness of breath. Negative for apnea, chest tightness and wheezing. Cardiovascular: Negative for chest pain and palpitations. Gastrointestinal: Negative for abdominal pain, constipation, diarrhea, nausea and vomiting. Genitourinary: Negative for difficulty urinating and hematuria. Musculoskeletal: Negative for arthralgias and myalgias. Skin: Negative for color change and rash. Allergic/Immunologic: Negative for environmental allergies and food allergies. Neurological: Negative for dizziness, syncope, light-headedness, numbness and headaches. Psychiatric/Behavioral: Negative for behavioral problems and confusion. Positives and pertinent negatives as per HPI. All other systems were reviewed and are negative. Physical Exam: Patient Vitals for the past 24 hrs: BP Temp Temp src Pulse Resp SpO2 Height Weight 10/19/23 1045 120/63 -- -- 75 (!) 24 93 % -- -- 10/19/23 1000 132/71 -- -- 78 (!) 22 94 % -- -- 10/19/23 0900 (!) 142/69 -- -- 86 (!) 20 93 % -- -- 10/19/23 0853 (!) 161/82 -- -- -- -- -- -- -- 10/19/23 0851 -- 98.2 F (36.8 C) Oral 93 (!) 23 95 % 5' 7 104.3 kg (230 lb) Physical Exam Constitutional: General: He is not in acute distress. Appearance: He is ill-appearing (Patient is ill-appearing, but in no acute distress.). He is not diaphoretic. HENT: Head: Normocephalic and atraumatic. Right Ear: External ear normal. Left Ear: External ear normal. Eyes: General: No scleral icterus. Extraocular Movements: Extraocular movements intact. Pupils: Pupils are equal, round, and reactive to light. Neck: Vascular: No JVD. Trachea: No tracheal deviation. Cardiovascular: Rate and Rhythm: Normal rate and regular rhythm. Pulses: Normal pulses. Heart sounds: Normal heart sounds. No murmur heard. No friction rub. No gallop. Pulmonary: Effort: Pulmonary effort is normal. No respiratory distress. Breath sounds: Normal breath sounds. Comments: Mildly coarse breath sounds bilaterally. Chest: Chest wall: No tenderness. Musculoskeletal: General: No deformity. Right lower leg: No tenderness. No edema. Left lower leg: No tenderness. No edema. Skin: General: Skin is warm and dry. Neurological: General: No focal deficit present. Mental Status: He is alert and oriented to person, place, and time. Psychiatric: Mood and Affect: Mood normal. Behavior: Behavior normal. Laboratory & Radiological Imaging (if done): Labs Reviewed BASIC METABOLIC PANEL - Abnormal; Notable for the following components: Result Value Glucose 288 (*) BUN 33 (*) BUN/Creatinine Ratio 26.6 (*) Calcium 8.2 (*) All other components within normal limits Narrative: [facility] has implemented the eGFR calculation approach that does not have a coefficient for race that conforms to the NKF-ASN Task Force Recommendations. NT PRO BNP - Abnormal; Notable for the following components: NT-Pro BNP 2,593 (*) All other components within normal limits Narrative: Pride Study Cut-offs Rule In: < /= 50 Years >450 pg/mL 51 Years - 75 Years >900 pg/mL 76 Years - 99 Years >1800 pg/mL Rule Out: All patients <300 pg/mL TROPONIN - Abnormal; Notable for the following components: Troponin T 26 (*) All other components within normal limits CBC WITH AUTO DIFFERENTIAL - Abnormal; Notable for the following components: RBC 3.22 (*) Hemoglobin 5.5 (*) Hematocrit 22.3 (*) MCV 69.3 (*) MCH 17.1 (*) MCHC 24.7 (*) RDW - CV 23.2 (*) Neutrophils Abs 7.91 (*) Lymphocytes Abs 0.79 (*) Nucleated RBC Abs 0.05 (*) All other components within normal limits COVID-19/INFLUENZA A,B MOLECULAR - Normal OCCULT BLOOD STOOL IMMUNOASSAY (CRUZITO DOS SANTOS, ANDREW ONLY) CBC AND DIFFERENTIAL Narrative: The following orders were created for panel order CBC w/ Diff. Procedure Abnormality Status --------- ------ CBC Auto Differential[[id number]] Abnormal Final result CBC and Diff Morphology[[id number]] Final result Please view results for these tests on the individual orders. OBTAIN VENOUS BLOOD GASES AND PERFORM TROPONIN URINALYSIS PT/INR TROPONIN TROPONIN URINALYSIS HEMOGLOBIN A1C HEMOGLOBIN AND HEMATOCRIT HEMOGLOBIN AND HEMATOCRIT IRON STUDY WITH FERRITIN POC GLUCOSE POC GLUCOSE PREPARE RBC TYPE AND SCREEN PREPARE RBC MORPHOLOGY ABORH VERIFICATION XR Chest AP/PA and LAT Final Result Multiple bilateral pulmonary masses measuring up to approximately 5.3 cm likely secondary to metastatic disease. Workstation ID: [id number] Procedures: EKG 12-lead Date/Time: 10/19/2023 8:59 AM Performed by: Garrick Caruso MD Authorized by: Garrick Caruso MD Interpreted by ED attending physician Rhythm: sinus rhythm BPM: 92 ST Segments: ST segments normal Clinical impression: normal ECG Critical Care Performed by: Garrick Caruso MD Authorized by: Garrick Caruso MD Total critical care time: 35 minutes Critical care time was exclusive of separately billable procedures and treating other patients. Critical care was necessary to treat or prevent imminent or life-threatening deterioration of the following conditions: respiratory failure. Critical care was time spent personally by me on the following activities: development of treatmentplan with patient or surrogate, discussions with consultants, evaluation of patient's response to treatment, examination of patient, obtaining history from patient or surrogate, ordering and performing treatments and interventions, ordering and review of laboratory studies, ordering and review of radiographic studies, pulse oximetry, re-evaluation of patient's condition and review of old charts. ED Course / Medical Decision Makin-year-old male, presenting for evaluation of shortness of breath has been progressively worseningover the past few weeks, as described above. Initial differential is very broad, including for pneumonia, pneumothorax, ACS, COVID, new onset COPD or other obstructive pulmonary disease. Patient was found to be anemic, his baseline appears to be close to 12 or 13, and his CBC today showing hemoglobin of 5.5. This is confirmed on the VBG as well. Troponin is elevated to 26, but likelydemand ischemia. Chest x-ray is unremarkable. Stool guaiac test was obtained, with Tushar, LINTER DRIER OPERATOR, chaperoning, and is found to be negative. We discussed the results of the work up in the emergency department. Patient was consented for blood, after discussing the risk, benefits, and alternatives, he is agreeable to proceeding with the same. Will plan for admission at this time, still unclear source of the anemia, will likely need to trend hemoglobins after transfusion to determine if this is acute, subacute, or chronic. I spoke with the [facility] Doc Cargo Surveyor/Unassigned Medicine Service, Dr. العراقي, and the patient will beaccepted onto their inpatient service., Intermediate unit. ED MIPS (if empty, not applicable): Coding Elements: Medical Decision Making Clinical Impression: 1. Acute respiratory failure with hypoxia (HCC) 2. Anemia, unspecified type 3. SOB (shortness of breath) Disposition: hospitalize to CVSD/ISD (Intermediate) Garrick Caruso M.D. Attending Physician [facility] 10/19/2023 Portions of this note may have been dictated utilizing voice recognition software. Unfortunately this leads to occasional typographical errors. If questions arise please do not hesitate to contact jesus for clarification. Data from EMR: PMHx: Past Medical History: Diagnosis Date Diabetes mellitus (HCC) Hyperlipidemia Hypertension Sleep apnea has a CPAP PMSx: Past Surgical History: Procedure Laterality Date ANKLE ARTHROSCOPY W/ OPEN REPAIR Left 1967 APPENDECTOMY 1961 CARDIAC CATHETERIZATION N/A 02/10/2022 Procedure: Left Heart Cath Possbile PTCA/Stent; Surgeon: Baljinder Banegas MD; Location: [facility]; Service: Cardiovascular CARDIAC CATHETERIZATION N/A 02/10/2022 Procedure: Coronary Angiogram; Surgeon: Baljinder Banegas MD; Location: [facility]; Service: Cardiovascular CARDIAC CATHETERIZATION N/A 02/10/2022 Procedure: Instant Wave Free Ratio; Surgeon: Baljinder Banegas MD; Location[facility]; Service: Cardiovascular CARDIAC CATHETERIZATION N/A 02/10/2022 Procedure: Fractional Flow Ruffin; Surgeon: Baljinder Banegas MD; Location: [facility]; Service: Cardiovascular CT COLONOSCOPY 03/01/[address] COLONOSCOPY 07/16/2018 CT COLONOSCOPY KNEE ARTHROPLASTY Right 1999 FAM. Hx: Family History Problem Relation Age of Onset Heart attack Mother SOC. Hx: Social History Socioeconomic History Marital status: Tobacco Use Smoking status: Never Smokeless tobacco: Never Vaping Use Vaping Use: Never used Substance and Sexual Activity Alcohol use: Never Drug use: Never MEDs: Previous Medications Medication Sig aspirin 81 MG EC tablet Take 1 (one) tablet (81 mg total) by mouth daily . famotidine (PEPCID) 20 MG tablet Take 1 (one) tablet (20 mg total) by mouth 2 (two) times a day for10 days . glimepiride (AMARYL) 4 MG tablet Take 1 Unspecified by mouth daily . lisinopriL-hydrochlorothiazide (PRINZIDE,ZESTORETIC) 10-12.5 mg per tablet Take 1 Unspecified by mouth daily . omeprazole (PRILOSEC) 40 MG capsule Take 1 Unspecified by mouth . pioglitazone (ACTOS) 30 MG tablet Take 1 Unspecified by mouth daily . potassium chloride 10 MEQ CR tablet Take 1 Unspecified by mouth . rosuvastatin (CRESTOR) 10 MG tablet Take 1 Unspecified by mouth daily . traZODone (DESYREL) 50 MG tablet Take 0.5 (one-half) tablet (25 mg total) by mouth nightly . ALL: Allergies Allergen Reactions Lisinopril Angioedema Metformin GI Intolerance (Please note that portions of this note have been completed with a voice recognition software. Efforts were made to correct any errors, but occasionally words are mis-transcribed.) Garrick Caruso MD 10/19/23 1102 * Ros Yin RN - 10/19/2023 8:48 AM EDT Pt reports to ED via triage w/ c/o SOB worsening x 2 weeks. Pt denies chest pain and does not wear O2 at home. Pt SPO2 83% upon arrival to ED, placed on 4L O2 via NC with return SPO2 91%. Pt A&O x 4. * Carolina Newman RN - 10/19/2023 1:50 AM EDT Hourly rounding assessment completed on the patient. [x] Patient updated on plan of care [x] All comfort needs addressed [] Patient updated on duration of visit All questions answered, patient denies further needs. Call light within reach. documented in this [id number] History of Present illness Narrative* Dayami Roe MD - 09/28/2023 11:40 AM EDT Subjective Patient ID: Dipti Sierra is a 77 y.o. male who presents for ER F/U ALLERGIC REACTION TO MEDICATION. HPI Was in ER 09/25 for facial swelling suspected angioedema, stopped lisinopril Had an episode 3 weeks prior with some swelling of the tongue, woke up drooling Stable SOB, had a cough for a week prior, had seen cardiology in April, stopped metoprolol No HBP checks Review of Systems Constitutional: Negative for activity change, appetite change and fatigue. HENT: Negative for congestion, nosebleeds, postnasal drip, rhinorrhea, sinus pressure, sinus pain, sneezing and sore throat. Respiratory: Negative for cough, chest tightness and shortness of breath. Cardiovascular: Negative for chest pain, palpitations and leg swelling. Gastrointestinal: Negative for abdominal pain, constipation, diarrhea, nausea and vomiting. Objective BP 130/52 Pulse 91 Ht 1.702 m (5' 7) Wt 104 kg (229 lb 6.4 oz) SpO2 92% BMI 35.93 kg/m Physical Exam Vitals and nursing note reviewed. Constitutional: Appearance: Normal appearance. HENT: Head: Normocephalic and atraumatic. Right Ear: Tympanic membrane, ear canal and external ear normal. Left Ear: Tympanic membrane, ear canal and external ear normal. Nose: Nose normal. Mouth/Throat: Mouth: Mucous membranes are moist. Pharynx: Oropharynx is clear. Cardiovascular: Rate and Rhythm: Normal rate and regular rhythm. Pulses: Normal pulses. Heart sounds: Normal heart sounds. Pulmonary: Effort: Pulmonary effort is normal. Breath sounds: Normal breath sounds. Musculoskeletal: Cervical back: Normal range of motion and neck supple. Neurological: Mental Status: He is alert. Psychiatric: Mood and Affect: Mood normal. Behavior: Behavior normal. Assessment/Plan Problem List Items Addressed This Visit ICD-10-CM Hypertension, essential, benign I10 Relevant Orders Follow Up In Primary Care - Established documented in this [facility] Work Phone: 1(246) 201-888904-01-2024 Instructions* Patient Instructions* Dayami Roe MD - 09/28/2023 11:40 AM EDT Stop potassium and stay off of lisinopril for now, try to get some blood pressure readings outside of the office, goal to be less than 140/90 documented in this [facility] Work Phone: 1([phone]) 800-122201-05-2024 Evaluation + Plan note* Assessment & Plan Note - Dayami Roe MD - 07/03/2023 12:38 PM ESTAssociated Problem(s): Insomnia disorder No help with tricyclic antidepressants or trazodone. Has had success with zolpidem in the past, state prescribing database was reviewed today, was given a prescription for 5 mg of zolpidem with refills, will plan to do controlled medicine agreement at his follow-up in 6 months from now. It was advised about [facility] policy for prescribing controlled medicines and he agrees to comply. [facility] Work Phone: [phone]) [phone] Evaluation + Plan note* Assessment & Plan Note - Dayami Roe MD - 07/03/2023 12:38 PM ESTAssociated Problem(s): Neurogenic claudication due to lumbar spinal stenosis As she seems to be improved currently. [facility] Work Phone: [phone] Evaluation + Plan note* Assessment & Plan Note - Dayami Roe MD - 07/03/2023 12:38 PM ESTAssociated Problem(s): GERD (gastroesophageal reflux disease) Currently stable. [facility] Work Phone: [phone] Evaluation + Plan note* Assessment & Plan Note - Dayami Roe MD - 07/03/2023 12:38 PM ESTAssociated Problem(s): Obesity, morbid (CMS/HCC) Encouraged about diet and exercise. [facility] Work Phone: [phone] Miscellaneous Notes* Assessment & Plan Note - Dayami Roe MD - 07/03/2023 12:38 PM ESTAssociated Problem(s): Insomnia disorder No help with tricyclic antidepressants or trazodone. Has had success with zolpidem in the past, state prescribing database was reviewed today, was given a prescription for 5 mg of zolpidem with refills, will plan to do controlled medicine agreement at his follow-up in 6 months from now. It was advised about [facility] policy for prescribing controlled medicines and he agrees to comply. * Assessment & Plan Note - Dayami Roe MD - 07/03/2023 12:38 PM EST Associated Problem(s): Neurogenic claudication due to lumbar spinal stenosis As she seems to be improved currently. * Assessment & Plan Note - Dayami Roe MD - 07/03/2023 12:38 PM EST Associated Problem(s): GERD (gastroesophageal reflux disease) Currently stable. * Assessment & Plan Note - Dayami Roe MD - 07/03/2023 12:38 PM EST Associated Problem(s): Obesity, morbid (CMS/HCC) Encouraged about diet and exercise. * Assessment & Plan Note - Dayami Roe MD - 07/03/2023 12:37 PM EST Associated Problem(s): DM2 (diabetes mellitus, type 2) (CMS/[facility]) A1c testing stable, tolerating medication, is not been able to afford GLP-1 or SGLT2's * Assessment & Plan Note - Dayami Roe MD - 07/03/2023 12:37 PM EST Associated Problem(s): Hypertension, essential, benign Blood pressure under good control renal function stable no change. * Assessment & Plan Note - Dayami Roe MD - 07/03/2023 12:37 PM EST Associated Problem(s): Hyperlipidemia Labs stable no change. documented in this [facility] Work Phone: [phone]) [phone] Evaluation + Plan note* Assessment & Plan Note - Dayami Roe MD - 07/03/2023 12:37 PM ESTAssociated Problem(s): DM2 (diabetes mellitus, type 2) ([facility]) A1c testing stable, tolerating medication, is not been able to afford GLP-1 or SGLT2's [facility] Work Phone: [phone] Evaluation + Plan note* Assessment & Plan Note - Dayami Roe MD - 07/03/2023 12:37 PM ESTAssociated Problem(s): Hypertension, essential, benign Blood pressure under good control renal function stable no change. [facility] Work Phone: [phone] Evaluation + Plan note* Assessment & Plan Note - Dayami Roe MD - 07/03/2023 12:37 PM ESTAssociated Problem(s): Hyperlipidemia Labs stable no change. [facility] Work Phone: [phone]) [phone] History of Present illness Narrative* Daymai Roe MD - 07/03/2023 8:20 AM EST Subjective Reason for Visit: Dipti Sierra is an 77 y.o. male here for a Medicare Wellness visit. Past Medical, Surgical, and Family History reviewed and updated in chart. Reviewed all medications by prescribing practitioner or clinical pharmacist (such as prescriptions,OTCs, herbal therapies and supplements) and documented in the medical record. HPI No low blood sugars since last OV, seen opthalmology in the past year, and no numbness or tingling in feet, skin normal. No headache, chest pain, shortness of breath, dizziness, lightheadedness, or edema Taking PPI daily without breakthrough symptoms. Reviewed dietary, caffeine, tobacco, alcohol, and NSAID use. No dyspepsia, dysphagia, reflux, melena, or abdominal pain. Still has trouble sleeping at night, try to use CPAP LBP some better, not using Meloxicam or Lyrica Patient Care Team: Dayami Roe MD as PCP - General Dayami Roe MD as PCP - [facility] [employer] PCP Review of Systems Constitutional: Negative for activity change, appetite change, fatigue and unexpected weight change. HENT: Negative for ear pain, nosebleeds, rhinorrhea, sneezing and trouble swallowing. Respiratory: Negative for cough, shortness of breath and wheezing. Cardiovascular: Negative for chest pain, palpitations and leg swelling. Gastrointestinal: Negative for abdominal distention, abdominal pain, constipation, diarrhea, nauseaand vomiting. Genitourinary: Negative for difficulty urinating. Musculoskeletal: Negative for arthralgias. Skin: Negative for rash. Neurological: Negative for dizziness, light-headedness, numbness and headaches. Hematological: Negative for adenopathy. Psychiatric/Behavioral: Positive for sleep disturbance. Negative for behavioral problems. All other systems reviewed and are negative. Objective Vitals: BP 124/60 Pulse 92 Ht 1.702 m (5' 7) Wt 107 kg (236 lb) SpO2 93% BMI 36.96 kg/m Physical Exam Vitals and nursing note reviewed. Constitutional: Appearance: Normal appearance. HENT: Head: Normocephalic and atraumatic. Right Ear: Tympanic membrane, ear canal and external ear normal. Left Ear: Tympanic membrane, ear canal and external ear normal. Nose: Nose normal. Mouth/Throat: Mouth: Mucous membranes are moist. Pharynx: Oropharynx is clear. Cardiovascular: Rate and Rhythm: Normal rate and regular rhythm. Pulses: Normal pulses. Heart sounds: Normal heart sounds. Pulmonary: Effort: Pulmonary effort is normal. Breath sounds: Normal breath sounds. Musculoskeletal: Cervical back: Normal range of motion and neck supple. Neurological: Mental Status: He is alert. Psychiatric: Mood and Affect: Mood normal. Behavior: Behavior normal. Assessment/Plan Problem List Items Addressed This Visit Arthritis of lumbosacral spine Relevant Orders Follow Up In Primary Care - Established DM2 (diabetes mellitus, type 2) ([facility]) Current Assessment & Plan A1c testing stable, tolerating medication, is not been able to afford GLP-1 or SGLT2's Relevant Orders Comprehensive Metabolic Panel Hemoglobin A1C Thyroid Stimulating Hormone Lipid Panel Follow Up In Primary Care - Established GERD (gastroesophageal reflux disease) Current Assessment & Plan Currently stable. Relevant Orders Follow Up In Primary Care - Established Hyperlipidemia Current Assessment & Plan Labs stable no change. Relevant Orders Comprehensive Metabolic Panel Lipid Panel Follow Up In Primary Care - Established Hypertension, essential, benign Current Assessment & Plan Blood pressure under good control renal function stable no change. Relevant Medications potassium chloride CR 10 mEq ER tablet lisinopriL-hydrochlorothiazide 10-12.5 mg tablet Other Relevant Orders Albumin , Urine Random Comprehensive Metabolic Panel Follow Up In Primary Care - Established Insomnia disorder Current Assessment & Plan No help with tricyclic antidepressants or trazodone. Has had success with zolpidem in the past, state prescribing database was reviewed today, was given a prescription for 5 mg of zolpidem with refills, will plan to do controlled medicine agreement at his follow-up in 6 months from now. It was advised about [facility] policy for prescribing controlled medicines and he agrees to comply. Relevant Medications zolpidem (Ambien) 5 mg tablet Other Relevant Orders Follow Up In Primary Care - Established Neurogenic claudication due to lumbar spinal stenosis Current Assessment & Plan As she seems to be improved currently. Relevant Orders Follow Up In Primary Care - Established Sleep apnea Relevant Orders Follow Up In Primary Care - Established Obesity, morbid (CMS/HCC) Current Assessment & Plan Encouraged about diet and exercise. Relevant Orders Follow Up In Primary Care - Established Other Visit Diagnoses Routine general medical examination at health care facility - Primary Relevant Orders Follow Up In Primary [facility] - [facility]: [phone] 453-196601-05-2024 Instructions* Patient Instructions* Dayami Roe MD - 07/03/2023 8:20 AM EST Use the Ambien at night as needed [facility]: [phone]) 384-704711-20-2023 History of Present illness Narrative* David Argueta MD - 05/18/2023 3:00 PM EST General Cardiology Returning Patient Clinic Visit [facility] 05/18/2023 David Argueta MD [address] [place] [phone] [facility], physician's office 05/18/2023 Patient: Dipti Sierra Date of : 1945 (77 y.o.) PCP: Dayami Roe MD Chief Complaint: Follow-up (Yearly previous Hoffman/ ) Date of Service: 05/18/2023 Assessment and Plan: 1. Dyspnea, unspecified type 2. Coronary artery disease involving [place] coronary artery of [place] heart without angina pectoris 3. Fatigue, unspecified type Overall I do not believe that his symptoms are cardiac in nature. He seems to have multiple other medical comorbidities including sciatica etc. I do not see an indication for metoprolol so I would be happy to stop that medication for him todayto see how his symptoms do. Regarding his coronary disease, nonobstructive, continue primary prevention with statin and aspirin as he is doing It has been a pleasure caring for this patient. Please don't hesitate to reach out to my office directly with any questions or concerns. Follow-up: Patient really does not have any ongoing cardiovascular needs that require routine cardiovascular follow-up, and so we will defer to his primary care physician at this time. We will be happy to see him should further issues arise David Argueta MD, [facility] Non-Invasive Cardiology [facility] P:[phone] F:[phone] History of Present Illness: Dipti Sierra is a 77 y.o. man with a past medical history of hypertension, diabetes, hyperlipidemia who previously followed with Dr. Hoffman. Was seen initially in January 2022 he was referred from the with shortness of breath symptoms. Noted he had a long history of sleep apnea. I felt he should go for catheterization with his risk factors. Catheterization was done on February 10. He had a mid LAD lesion with a negative FFR assessment. Left ventricular end- diastolic pressure was normal, LV systolic function was normal. No other significant disease noted. He presents today continuing to feel well from a cardiovascular perspective. He does think that metoprolol is leading to some fatigue. Objective Review of Systems: All systems were reviewed and noted to be negative unless otherwise stated in HPI. Past Medical History: Diagnosis Date Diabetes mellitus (HCC) Hyperlipidemia Hypertension Sleep apnea has a CPAP Past Surgical History: Procedure Laterality Date ANKLE ARTHROSCOPY W/ OPEN REPAIR Left 1967 APPENDECTOMY 1961 CARDIAC CATHETERIZATION N/A 02/10/2022 Procedure: Left Heart Cath Possbile PTCA/Stent; Surgeon: Baljinder Banegas MD; Location[facility]; Service: Cardiovascular CARDIAC CATHETERIZATION N/A 02/10/2022 Procedure: Coronary Angiogram; Surgeon: Baljinder Banegas MD; Location: [facility]; Service: Cardiovascular CARDIAC CATHETERIZATION N/A 02/10/2022 Procedure: Instant Wave Free Ratio; Surgeon: Baljinder Banegas MD; Location: [facility]; Service: Cardiovascular CARDIAC CATHETERIZATION N/A 02/10/2022 Procedure: Fractional Flow Ruffin; Surgeon: Baljinder Banegas MD; Location: [facility]; Service: Cardiovascular KNEE ARTHROPLASTY Right 1999 Family History Problem Relation Age of Onset Heart attack Mother Social History Tobacco Use Smoking Status Never Smokeless Tobacco Never Allergies: Metformin All of the above information has been reviewed at today's visit and modified if necessary. Home Medications: Current Outpatient Medications: aspirin 81 MG EC tablet, Take 1 (one) tablet (81 mg total) by mouth daily ., Disp: , Rfl: glimepiride (AMARYL) 4 MG tablet, Take 1 Unspecified by mouth daily ., Disp: , Rfl: lisinopriL-hydrochlorothiazide (PRINZIDE,ZESTORETIC) 10-12.5 mg per tablet, Take 1 Unspecified by mouth daily ., Disp: , Rfl: omeprazole (PRILOSEC) 40 MG capsule, Take 1 Unspecified by mouth ., Disp: , Rfl: pioglitazone (ACTOS) 30 MG tablet, Take 1 Unspecified by mouth daily ., Disp: , Rfl: potassium chloride 10 MEQ CR tablet, Take 1 Unspecified by mouth ., Disp: , Rfl: rosuvastatin (CRESTOR) 10 MG tablet, Take 1 Unspecified by mouth daily ., Disp: , Rfl: traZODone (DESYREL) 50 MG tablet, Take 0.5 (one-half) tablet (25 mg total) by mouth nightly ., Disp: , Rfl: Physical Exam: BP 138/75 (BP Location: Left arm, Patient Position: Sitting, BP Cuff Size: X- large Adult) Pulse 95 Ht 5' 6 Wt 108.6 kg (239 lb 6.4 oz) SpO2 92% BMI 38.64 kg/m Constitutional: Well appearing male, no acute distress Head: Normocephalic and atraumatic. Eyes: Conjunctivae are normal, no scleral icterus, no corneal arcus Neck: No acanthosis nigricans, no elevated jugular venous distension, no hepatojugular reflux Cardiovascular: Regular rate and rhythm, no murmurs appreciated on today's exam, normal S1 and S2, no rubs or gallops, PMI is midline Pulses: +2 dorsalis pedis pulses bilaterally Musculoskeletal: Normal range of motion. No cyanosis. No peripheral Edema Neurological: AOx3, moving all extremities normally Skin: Skin is warm and dry, normal hair pattern Psychiatric: Normal mood and affect, appropriate conversation Cardiovascular Studies: Reviewed left heart catheterization January 2022 nonobstructive coronary disease Echocardiogram May 2022 within normal limits Labs: Lab Results Component Value Date GLUCOSE 157 (H) 01/28/2022 CALCIUM 8.9 01/28/2022 NA 141 01/28/2022 K 4.0 01/28/2022 CL 106 01/28/2022 BUN 22 01/28/2022 CREATININE 1.18 01/28/2022 Lab Results Component Value Date ALT 21 08/20/2017 AST 14 08/20/2017 Lab Results Component Value Date WBC 5.99 01/28/2022 HGB 11.9 (L) 01/28/2022 HCT 38.9 (L) 01/28/2022 MCV 88.0 01/28/2022 EXTMCV 89.1 08/20/2017 PLT 349 01/28/2022 RBC 4.42 (L) 01/28/2022 No results found for: CHOL, LDLCALC, LDLDIRECT, TRIG, HDL No results found for: HGBA1C Lab Results Component Value Date ALT 21 08/20/2017 AST 14 08/20/2017 The ASCVD Risk score (Ben DK, et al., 2019) failed to calculate for the following reasons: The valid total cholesterol range is 130 to 320 mg/dL documented in this [id number] Instructions* Patient Instructions* David Argueta MD - 05/18/2023 10:41 AM EST How to Contact your Care Team: Provider: Dr. David Argueta MD Clinic Nurse: Amna Smith RN REFILLS: When in need for refills please call your care team or the office at [phone]. Please include medication name, pharmacy name, and specify 30-day or 90-day supply. Please check with your pharmacy within 24 hours of request for your refill. You must follow up as directed to continue current refills. Thank you! Patient Instructions So great to see you today! Please do not hesitate to call me if you have any questions! Here are the things we talked about... Cut metoprolol in half for a week, then stop See if that helps documented in this [id number] Evaluation + Plan note* Assessment & Plan Note - Dayami Roe MD - 12/31/2022 1:50 PM EDT Associated Problem(s): Sleep apnea Patient has been using their CPAP nightly and is experiencing restful sleep, no morning headaches, no witnessed snoring, and notices a difference if they do not use the device. [facility] Work Phone: [phone]) [phone] Evaluation + Plan note* Assessment & Plan Note - Dayami Roe MD - 12/31/2022 1:50 PM EDTAssociated Problem(s): Insomnia disorder Patient unable to get relief with trazodone, has used zolpidem in the past, try low-dose nortriptyline 10 mg at at bedtime to try to help with sleep and help improve pain relief. [facility] Work Phone: [phone] Evaluation + Plan note* Assessment & Plan Note - Dayami Roe MD - 12/31/2022 1:50 PM EDTAssociated Problem(s): Neurogenic claudication due to lumbar spinal stenosis No change with current treatment, able to accomplish daily activities without difficulty. [facility] Work Phone: [phone] Evaluation + Plan note* Assessment & Plan Note - Dayami Roe MD - 12/31/2022 1:50 PM EDTAssociated Problem(s): GERD (gastroesophageal reflux disease) Currently stable with medication no change. [facility] Work Phone: [phone]) 340-277207-05-2023 Miscellaneous Notes* Assessment & Plan Note - Dayami Roe MD - 12/31/2022 1:50 PM EDTAssociated Problem(s): Sleep apnea Patient has been using their CPAP nightly and is experiencing restful sleep, no morning headaches, no witnessed snoring, and notices a difference if they do not use the device. * Assessment & Plan Note - Dayami Roe MD - 12/31/2022 1:50 PM EDT Associated Problem(s): Insomnia disorder Patient unable to get relief with trazodone, has used zolpidem in the past, try low-dose nortriptyline 10 mg at at bedtime to try to help with sleep and help improve pain relief. * Assessment & Plan Note - Dayami Roe MD - 12/31/2022 1:50 PM EDT Associated Problem(s): Neurogenic claudication due to lumbar spinal stenosis No change with current treatment, able to accomplish daily activities without difficulty. * Assessment & Plan Note - Dayami Roe MD - 12/31/2022 1:50 PM EDT Associated Problem(s): GERD (gastroesophageal reflux disease) Currently stable with medication no change. * Assessment & Plan Note - Dayami Roe MD - 12/31/2022 1:49 PM EDT Associated Problem(s): DM2 (diabetes mellitus, type 2) (CMS/HCC) A1c testing stable, continue with current medication, again advised about diet and exercise. * Assessment & Plan Note - Dayami Roe MD - 12/31/2022 1:49 PM EDT Associated Problem(s): Hypertension, essential, benign Blood pressures within goal, renal function electrolytes are all normal. * Assessment & Plan Note - Dayami Roe MD - 12/31/2022 1:49 PM EDT Associated Problem(s): Hyperlipidemia Cholesterol levels are within range, no change with medication. * Assessment & Plan Note - Dayami oRe MD - 12/31/2022 1:48 PM EDT Associated Problem(s): Obesity, morbid (CMS/HCC) Advised about diet and exercise. documented in this [facility] Work Phone: [phone] Evaluation + Plan note* Assessment & Plan Note - Dayami Roe MD - 12/31/2022 1:49 PM EDTAssociated Problem(s): DM2 (diabetes mellitus, type 2) (CMS/[facility]) A1c testing stable, continue with current medication, again advised about diet and exercise. [facility] Work Phone: [phone] Evaluation + Plan note* Assessment & Plan Note - Dayami Roe MD - 12/31/2022 1:49 PM EDTAssociated Problem(s): Hypertension, essential, benign Blood pressures within goal, renal function electrolytes are all normal. [facility] Work Phone: [phone] Evaluation + Plan note* Assessment & Plan Note - Dayami Roe MD - 12/31/2022 1:49 PM EDTAssociated Problem(s): Hyperlipidemia Cholesterol levels are within range, no change with medication. [facility] Work Phone: [phone] Evaluation + Plan note* Assessment & Plan Note - Dayami Roe MD - 12/31/2022 1:48 PM EDTAssociated Problem(s): Obesity, morbid (CMS/HCC) Advised about diet and exercise. [facility] Work Phone: [phone] History of Present illness Narrative* Dayami Roe MD - 12/31/2022 9:20 AM EDT Subjective Patient ID: Dipti Sierra is a 77 y.o. male who presents for 6 MO LABS. HPI No low blood sugars since last OV, seen opthalmology in the past year, and no numbness or tingling in feet, skin normal. No headache, chest pain, shortness of breath, dizziness, lightheadedness, or edema Taking PPI daily without breakthrough symptoms. Reviewed dietary, caffeine, tobacco, alcohol, and NSAID use. No dyspepsia, dysphagia, reflux, melena, or abdominal pain. Patient has been using their CPAP nightly and is experiencing restful sleep, no morning headaches, no witnessed snoring, and notices a difference if they do not use the device. Last seen cardiology in April Still having trouble sleeping through the night, trazodone not helpful Review of Systems Constitutional: Negative for activity change, appetite change, fatigue and unexpected weight change. HENT: Negative for ear pain, nosebleeds, rhinorrhea, sneezing and trouble swallowing. Respiratory: Negative for cough, shortness of breath and wheezing. Cardiovascular: Negative for chest pain, palpitations and leg swelling. Gastrointestinal: Negative for abdominal distention, abdominal pain, constipation, diarrhea, nauseaand vomiting. Genitourinary: Negative for difficulty urinating. Musculoskeletal: Negative for arthralgias. Skin: Negative for rash. Neurological: Negative for dizziness, light-headedness, numbness and headaches. Hematological: Negative for adenopathy. Psychiatric/Behavioral: Positive for sleep disturbance. Negative for behavioral problems. All other systems reviewed and are negative. Objective BP 120/56 Pulse 85 Ht 1.702 m (5' 7) Wt 108 kg (237 lb 8 oz) SpO2 94% BMI 37.20 kg/m Physical Exam Vitals and nursing note reviewed. Constitutional: General: He is not in acute distress. Appearance: Normal appearance. He is not toxic-appearing. HENT: Head: Normocephalic and atraumatic. Right Ear: Tympanic membrane, ear canal and external ear normal. Left Ear: Tympanic membrane, ear canal and external ear normal. Nose: Nose normal. Mouth/Throat: Mouth: Mucous membranes are moist. Pharynx: Oropharynx is clear. Eyes: Extraocular Movements: Extraocular movements intact. Conjunctiva/sclera: Conjunctivae normal. Pupils: Pupils are equal, round, and reactive to light. Cardiovascular: Rate and Rhythm: Normal rate and regular rhythm. Pulmonary: Effort: Pulmonary effort is normal. Breath sounds: Normal breath sounds. Abdominal: General: Abdomen is flat. Bowel sounds are normal. Palpations: Abdomen is soft. Musculoskeletal: Cervical back: Normal range of motion and neck supple. Skin: General: Skin is warm and dry. Capillary Refill: Capillary refill takes less than 2 seconds. Neurological: General: No focal deficit present. Mental Status: He is alert and oriented to person, place, and time. Mental status is at baseline. Psychiatric: Mood and Affect: Mood normal. Behavior: Behavior normal. Assessment/Plan Problem List Items Addressed This Visit Arthritis of lumbosacral spine Relevant Orders Follow Up In Primary Care - Established DM2 (diabetes mellitus, type 2) ([facility]) - Primary A1c testing stable, continue with current medication, again advised about diet and exercise. Relevant Medications pioglitazone (Actos) 30 mg tablet glimepiride (Amaryl) 4 mg tablet Other Relevant Orders Follow Up In Primary Care - Established Cholesterol, LDL Direct Comprehensive Metabolic Panel Hemoglobin A1C GERD (gastroesophageal reflux disease) Currently stable with medication no change. Relevant Medications omeprazole (PriLOSEC) [address] capsule Other Relevant Orders Follow Up In Primary Care - Established Hyperlipidemia Cholesterol levels are within range, no change with medication. Relevant Medications rosuvastatin (Crestor) 10 mg tablet Other Relevant Orders Follow Up In Primary Care - Established Cholesterol, LDL Direct Comprehensive Metabolic Panel Hypertension, essential, benign Blood pressures within goal, renal function electrolytes are all normal. Relevant Medications metoprolol succinate XL (Toprol-XL) 25 mg 24 hr tablet Other Relevant Orders Follow Up In Primary Care - Established Insomnia disorder Patient unable to get relief with trazodone, has used zolpidem in the past, try low-dose nortriptyline 10 mg at at bedtime to try to help with sleep and help improve pain relief. Relevant Medications nortriptyline (Pamelor) 10 mg capsule Neurogenic claudication due to lumbar spinal stenosis No change with current treatment, able to accomplish daily activities without difficulty. Relevant Orders Follow Up In Primary Care - Established Sleep apnea Patient has been using their CPAP nightly and is experiencing restful sleep, no morning headaches, no witnessed snoring, and notices a difference if they do not use the device. Relevant Orders Follow Up In Primary Care - Established Obesity, morbid ([facility]) Advised about diet and exercise. Other Visit Diagnoses Prostate cancer screening Relevant Orders Prostate Specific Antigen, [facility] [phone] Instructions* Patient Instructions* Dayami Roe MD - 12/31/2022 9:20 AM EDT Try using nortriptyline at night for sleep, if not helping in the next month, call. [facility]: [phone] Evaluation + Plan note* Assessment & Plan Note - Dipti Hoffman MD - 05/27/2022 9:18 AM ESTAssociated Problem(s): CAD (coronary artery disease) He does not report any anginal complaints. I reviewed with him today the possibility of switching his Actos to a Farxiga or Jardiance. I would like him to discuss this further with his primary care. Those agents may be more appropriate for him in the setting of his underlying coronary artery disease and diabetes condition. [id number] Miscellaneous Notes* Assessment & Plan Note - Dipti Hoffman MD - 05/27/2022 9:18 AM ESTAssociated Problem(s): CAD (coronary artery disease) He does not report any anginal complaints. I reviewed with him today the possibility of switching his Actos to a Farxiga or Jardiance. I would like him to discuss this further with his primary care. Those agents may be more appropriate for him in the setting of his underlying coronary artery disease and diabetes condition. * Assessment & Plan Note - Dipti Hoffman MD - 05/27/2022 8:52 AM EST Associated Problem(s): Dyspnea I reviewed his recent angiographic findings with him. He does not have any critical coronary disease. He still has some dyspnea symptoms but in further discussion today it seems to relate to problemswith sleep. This has been ongoing for some time and he is working it through his primary care. He did undergo a number of diagnostic studies since his catheterization and he does not sound like any particular finding was noted except for some sort of issue with the thoracic muscle. I do not have copies of those reports. I reviewed his cardiovascular therapy and I told him it is reasonable to continue this. I would like to get an echo for assessment of overall cardiac structure and function. We would like to maintain periodic follow-ups with him, he also knows to contact us if he has any additional concerns or changes. documented in this [id number] Evaluation + Plan note* Assessment & Plan Note - Dipti Hoffman MD - 05/27/2022 8:52 AM EST Associated Problem(s): Dyspnea I reviewed his recent angiographic findings with him. He does not have any critical coronary disease. He still has some dyspnea symptoms but in further discussion today it seems to relate to problemswith sleep. This has been ongoing for some time and he is working it through his primary care. He did undergo a number of diagnostic studies since his catheterization and he does not sound like any particular finding was noted except for some sort of issue with the thoracic muscle. I do not have copies of those reports. I reviewed his cardiovascular therapy and I told him it is reasonable to continue this. I would like to get an echo for assessment of overall cardiac structure and function. We would like to maintain periodic follow-ups with him, he also knows to contact us if he has any additional concerns or changes. [id number] Instructions* Patient Instructions* Brooke Villeda MA - 05/27/2022 8:25 AM EST You can reach Dr Hoffman's nurse Hayden Russell RN, at [phone]. If unable to reach us please leave a detailed voicemail message. We regularly check our messages when we are in clinic and will return your call in 24 hours. REFILLS: When in need for refills please call the above number. Please relay your name, date and phonenumber. We request that you include medication name, dose, pharmacy name and location of pharmacy in your message. Be sure to specify 30-day or 90-day supply requested. Please check with your pharmacy within 24-48 hours of request for your refill. You must follow up as directed to continue current refills. FOLLOW UP VISIT: Regarding your follow up office visit: The return date listed below is an approximate date of when your next office visit will be. We will call you a month before that date to schedule your office visit. If you have not heard from us by the date listed below please call the office at [phone] and ask to speak to the schedulers to make an appointment. *If you made an -appointment prior to leaving the office today disregard this message. To cancel or reschedule your office visit or testing please call [phone]. If you need to cancel it must be 24 hours prior to that appt. Thank you. ....If you were seen in the [place] office today. If any testing was ordered a director blood bank from [facility] will call you to schedule your testing. If you do not hear from a director blood bank after a couple of days please call the office at [phone] and ask to speak to a director blood bank. documented in this [id number] History of Present illness Narrative* Dipti Hoffman MD - 05/27/2022 8:20 AM EST General Cardiology Clinic Follow-up Heart & Vascular [facility] 05/27/2022 Dipti Hoffman MD [address] [place] [address] [phone] Patient: Dipti Sierra Date of : 1945 (76 y.o.) PCP: Dayami Roe MD Assessment & Plan Dyspnea I reviewed his recent angiographic findings with him. He does not have any critical coronary disease. He still has some dyspnea symptoms but in further discussion today it seems to relate to problemswith sleep. This has been ongoing for some time and he is working it through his primary care. He did undergo a number of diagnostic studies since his catheterization and he does not sound like any particular finding was noted except for some sort of issue with the thoracic muscle. I do not have copies of those reports. I reviewed his cardiovascular therapy and I told him it is reasonable to continue this. I would like to get an echo for assessment of overall cardiac structure and function. We would like to maintain periodic follow-ups with him, he also knows to contact us if he has any additional concerns or changes. CAD (coronary artery disease) He does not report any anginal complaints. I reviewed with him today the possibility of switching his Actos to a Farxiga or Jardiance. I would like him to discuss this further with his primary care. Those agents may be more appropriate for him in the setting of his underlying coronary artery disease and diabetes condition. Follow-up: Return in about 1 year (around 05/27/2023). Subjective History of Present Illness: Dipti Sierra is a 76 y.o. male This is a 76-year-old gentleman. He has a history of diabetes, hypertension, hyperlipidemia. I saw him in January he was referred from the ER with shortness of breath symptoms. Noted he had a long history of sleep apnea. I felt he should go for catheterization with his risk factors. Catheterization was done on February 10. He had a mid LAD lesion with a negative FFR assessment. Left ventricular end-diastolic pressure was normal, LV systolic function was normal. No other significant disease noted. Objective Tobacco Use Smoking Status Never Smokeless Tobacco Never ECG 12 Lead Final Result by Interface, Lab Results In [facility] (02/10/2022 1256) Cardiac Catheterization Final Result by Baljinder Banegas MD (02/10/2022 0883) HOME Medications: Patient's Medications New Prescriptions No medications on file Previous Medications ASPIRIN 81 MG EC TABLET Take 1 (one) tablet (81 mg total) by mouth daily . GLIMEPIRIDE (AMARYL) 4 MG TABLET Take 1 Unspecified by mouth daily . LISINOPRIL-HYDROCHLOROTHIAZIDE (PRINZIDE,ZESTORETIC) 10-12.5 MG PER TABLET Take 1 Unspecified by mouth daily . METOPROLOL SUCCINATE (TOPROL-XL) 25 MG 24 HR TABLET Take 1 Unspecified by mouth . OMEPRAZOLE (PRILOSEC) 40 MG CAPSULE Take 1 Unspecified by mouth . PIOGLITAZONE (ACTOS) 30 MG TABLET Take 1 Unspecified by mouth daily . POTASSIUM CHLORIDE 10 MEQ CR TABLET Take 1 Unspecified by mouth . ROSUVASTATIN (CRESTOR) 10 MG TABLET Take 1 Unspecified by mouth daily . Modified Medications No medications on file Discontinued Medications No medications on file Vital Signs: BP (!) 159/80 (BP Location: Right arm, Patient Position: Sitting, BP Cuff Size: Adult) Pulse 81 Ht 5' 6 Wt 109.3 kg (241 lb) SpO2 93% BMI 38.90 kg/m Physical Exam Vitals reviewed. documented in this [id number] History of Present illness Narrative* On a scale of 0 to 10, the patient rates the pain at 2. * Pain Location: Low Back Pain. * Pain Quality: Burning, Dull, Tenderness and DULL IN THE LOW BACK; BURNING AND TENDER TO THE TOUCH DULL FEELING IN THE RIGHT SIDE. * Timing/Duration: Constant and > 12 weeks duration. * Exacerbating Factors: motion, lifting, repetitive motion, standing, walking, weightbearing and BENDING/TWISTING. * Alleviating Factors: Assistive Devices, Medications, Repositioning. * 24 Hour Behavior: * Symptoms are the same in the am. * Symptoms are the same as the day progresses. * Symptoms are the same in the pm. * Symptoms are better lying down. IF ON THE SIDE OR THE BACK. * Patient is a 76-year-old male with a past medical history significant for pain along the right rib cage and lower back pain. He rates the discomfort a 2/10. He states that over the last month or so things have gotten better. He is here today just to make sure that there is nothing concerning on hisimaging. He was concerned that maybe he had a mass. He states that the CT of the abdomen and pelvisdid not show 1 but he wonders what this showed. * He states that he can live with a certain amount of pain. He is not really all that concerned aboutthat at this time. He just wants to make sure of the imaging. [facility] Work Phone: [phone]) [phone] History of Present illness Narrativenot sleeping well at night, 1.5 weeks with pain in RUQ, getting worse, radiates to side and back, comes and goes, sensitive to touch, ate some chili last night, made worse, used some OTC AA with somehelp, had a hard time sleeping last night, drank some mild with help, no burping or belching, worseafter eatingMP-[facility] Work Phone: [phone]) [phone] History of Present illness NarrativeJames comes to office after cutting finger on Thursday w/ a table saw. [facility] and woundwas cleansed & he received his Tetanus shot. Minimal pain. No drainage. No F/C.[facility] Work Phone: [phone]) [phone] History of Present illness Narrative* No low blood sugars since last OV, seen opthalmology in the past year, and no numbness or tingling in feet, skin normal. * No headache, chest pain, more shortness of breath,not dizziness, lightheadedness, or edema * Taking PPI daily without breakthrough symptoms. Reviewed dietary, caffeine, tobacco, alcohol, and NSAID use. No dyspepsia, dysphagia, reflux, melena, or abdominal pain. * Seen in ER 01/06/22, has been having a hard time sleeping at night since November * has been noticing more FERNANDEZ, palpitations, fatigue and change in exercise tolerance * to see [facility] on January 28 at [facility] * went to ER at [facility] after, gave MDI to use, has not used * no cough or wheeze, some numbness in left hand at times * Patient has been using their CPAP nightly and is experiencing restful sleep, no morning headaches, no witnessed snoring, and notices a difference if they do not use the device. [facility] Work Phone: evaluation note* Diagnosis Dyspnea, unspecified type [facility] Diagnosis Dyspnea, unspecified type- Primary Coronary artery disease involving [place] coronary artery of [place] heart without angina pectoris [facility]* Diagnosis Type 2 diabetes mellitus without complication, without long-term current use of insulin (CMS/HCC)- Primary Mixed hyperlipidemia Hypertension, essential, benign Essential hypertension, benign Gastroesophageal reflux disease without esophagitis Esophageal reflux Neurogenic claudication due to lumbar spinal stenosis Spinal stenosis of lumbar region Arthritis of lumbosacral spine Obstructive sleep apnea syndrome Obstructive sleep apnea (adult) (pediatric) Prostate cancer screening Special screening for malignant neoplasm of prostate Primary insomnia Persistent disorder of initiating or maintaining sleep Obesity, morbid (CMS/HCC) Morbid obesity documented [facility] Work Phone: Evaluation note* Diagnosis Dyspnea, unspecified type- Primary Coronary artery disease involving [place] coronary artery of [place] heart without angina pectoris Fatigue, unspecified type [facility]* Diagnosis Routine general medical examination at health care facility- Primary Routine general medical examination at a health care facility Mixed hyperlipidemia Hypertension, essential, benign Essential hypertension, benign Type 2 diabetes mellitus without complication, without long-term current use of insulin (CMS/HCC) Gastroesophageal reflux disease without esophagitis Esophageal reflux Neurogenic claudication due to lumbar spinal stenosis Spinal stenosis of lumbar region Arthritis of lumbosacral spine Obstructive sleep apnea syndrome Obstructive sleep apnea (adult) (pediatric) Obesity, morbid (CMS/HCC) Morbid obesity Primary insomnia Persistent disorder of initiating or maintaining sleep documented in [facility] Work Phone: Evaluation note* Diagnosis Hypertension, essential, benign Essential hypertension, benign documented in [facility] Work Phone: Evaluation note* Diagnosis Adenocarcinoma of colon (HCC)- Primary Malignant neoplasm of colon, unspecified site [facility]* Diagnosis Acute anemia- Primary Anemia, unspecified type SOB (shortness of breath) Shortness of breath Acute respiratory failure with hypoxia (HCC) S/P right hemicolectomy Other postprocedural status Mass of cecum Unspecified disorder of intestine [facility]* Diagnosis 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) [facility]* Diagnosis Adenocarcinoma of colon (HCC)- Primary Malignant neoplasm of colon, unspecified site [facility]* Diagnosis 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 (Multi)- Primary Type 2 diabetes mellitus without complication, without long-term current use of insulin (Multi) Mixed hyperlipidemia Gastroesophageal reflux disease without esophagitis Esophageal reflux Hypertension, essential, benign Essential hypertension, benign Anemia, unspecified type Hypoxia Hypoxemia Obstructive sleep apnea syndrome Obstructive sleep apnea (adult) (pediatric) documented in this [facility] Work Phone: Evaluation note* Diagnosis Adenocarcinoma of colon (HCC)- Primary Malignant neoplasm of colon, unspecified site 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) Malignant neoplasm of colon, unspecified site 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) Malignant neoplasm of colon, unspecified site documented in this encounter [facility]* Diagnosis Iron deficiency anemia due to chronic blood loss- Primary 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 [facility]* Diagnosis Encounter for education- Primary Counseling NOS 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) Malignant neoplasm of colon, unspecified site [facility]* Diagnosis Iron malabsorption- 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) 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) Malignant neoplasm of colon, unspecified site 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) Malignant neoplasm of colon, [facility] site [facility] Iron malabsorption- 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) 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) Malignant neoplasm of colon, unspecified site 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) Malignant neoplasm of colon, unspecified site [facility] Iron deficiency anemia due to chronic blood loss- Primary 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) Malignant neoplasm of colon, unspecified site 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) Malignant neoplasm of colon, unspecified site [facility] Iron [facility]- 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) 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) Malignant neoplasm of colon, unspecified site 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) Malignant neoplasm of colon, unspecified site [facility] Cancer of cecum (HCC)- Primary 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) Malignant neoplasm of colon, unspecified site 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) Malignant neoplasm of colon, unspecified site [facility] Cancer of cecum (HCC)- Primary 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) Malignant neoplasm of colon, unspecified site 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) Malignant neoplasm of colon, unspecified site [facility] 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) Malignant neoplasm of colon, unspecified site 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) Malignant neoplasm of colon, unspecified site [facility] Cancer of cecum (HCC)- Primary 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) Malignant neoplasm of colon, unspecified site 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) Malignant neoplasm of colon, unspecified site Iron deficiency anemia due to chronic blood loss Iron deficiency anemia secondary to blood loss (chronic) [facility] Cancer of cecum (HCC)- Primary 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) Malignant neoplasm of colon, unspecified site 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) Malignant neoplasm of colon, unspecified site [facility] Cancer of cecum (HCC)- Primary 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) Malignant neoplasm of colon, unspecified site 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) Malignant neoplasm of colon, unspecified site [facility] Cancer of cecum (HCC)- Primary 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) Malignant neoplasm of colon, unspecified site Diarrhea of presumed infectious origin Acute cystitis without hematuria Acute cystitis Dehydration [facility] Cancer of cecum (HCC)- Primary 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) Malignant neoplasm of colon, unspecified site 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) Malignant neoplasm of colon, unspecified site Acute cystitis without hematuria Acute cystitis [facility] 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) Malignant neoplasm of colon, unspecified site 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) Malignant neoplasm of colon, unspecified site [facility] Diagnosis 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)- Primary Malignant neoplasm of colon, unspecified site 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) [facility] Diagnosis 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)- Primary Malignant neoplasm of colon, unspecified site 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) Malignant neoplasm of colon, unspecified site [facility] Diagnosis Cancer of cecum (HCC)- Primary 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) Malignant neoplasm of colon, unspecified site 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) Malignant neoplasm of colon, unspecified site [facility] 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) Malignant neoplasm of colon, unspecified site 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) Malignant neoplasm of colon, unspecified site [facility] Cancer of cecum (HCC)- Primary 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) Malignant neoplasm of colon, unspecified site Malignant neoplasm of colon, unspecified part of colon (HCC) [facility] Cancer of cecum (HCC)- Primary 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) Malignant neoplasm of colon, unspecified site 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) Malignant neoplasm of colon, unspecified site [facility] Cancer of cecum (HCC)- Primary 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) Malignant neoplasm of colon, unspecified site 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) Malignant neoplasm of colon, unspecified site [facility] Diagnosis Encounter for medical examination to establish care- Primary 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) Malignant neoplasm of colon, unspecified site 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) Malignant neoplasm of colon, unspecified site Controlled type 2 diabetes mellitus without complication, with long-term current use of insulin (HCC) Iron deficiency anemia due to chronic blood loss Iron deficiency anemia secondary to blood loss (chronic) BRYCE on CPAP Obstructive sleep apnea (adult) (pediatric) Essential hypertension Unspecified essential hypertension Encounter for immunization Need for other specified prophylactic vaccination against single bacterial disease [facility] Cancer of cecum (HCC)- Primary 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) Malignant neoplasm of colon, unspecified site 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) Malignant neoplasm of colon, unspecified site Iron deficiency anemia due to chronic blood loss Iron deficiency anemia secondary to blood loss (chronic) [facility] Cancer of cecum (HCC)- Primary Malignant neoplasm of cecum [facility] Diagnosis Anemia due to vitamin B12 deficiency, unspecified B12 deficiency type- Primary [facility] Diagnosis Cancer of cecum (HCC)- Primary 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) Malignant neoplasm of colon, unspecified site 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) Malignant neoplasm of colon, unspecified site Anemia due to vitamin B12 deficiency, unspecified B12 deficiency type [facility] Diagnosis Cancer of cecum (HCC)- Primary Malignant neoplasm of cecum [facility] Diagnosis 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) Malignant neoplasm of colon, unspecified site Malignant neoplasm of colon, unspecified part of colon (HCC) [facility] Diagnosis Anemia due to vitamin B12 deficiency, unspecified B12 deficiency type- Primary 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) Malignant neoplasm of colon, unspecified site [facility] Diagnosis 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) Malignant neoplasm of colon, unspecified site 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) Malignant neoplasm of colon, unspecified site [facility] Diagnosis Cancer of cecum (HCC)- Primary 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) Malignant neoplasm of colon, unspecified site 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) Malignant neoplasm of colon, unspecified site History of iron deficiency Personal history of diseases of blood and blood-forming organs [facility] Diagnosis Cancer of cecum (HCC)- Primary 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) Malignant neoplasm of colon, unspecified site 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) Malignant neoplasm of colon, unspecified site Anemia due to vitamin B12 deficiency, unspecified B12 deficiency type [facility] Diagnosis Cancer of cecum (HCC)- Primary 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) Malignant neoplasm of colon, unspecified site 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) Malignant neoplasm of colon, unspecified site [facility] Diagnosis Cancer of cecum (HCC)- Primary 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) Malignant neoplasm of colon, unspecified site 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) Malignant neoplasm of colon, unspecified site Controlled type 2 diabetes mellitus without complication, with long-term current use of insulin (HCC) [facility] Diagnosis Cancer of cecum (HCC)- Primary 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) Malignant neoplasm of colon, unspecified site 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) Malignant neoplasm of colon, unspecified site History of iron deficiency Personal history of diseases of blood and blood-forming organs Anemia due to vitamin B12 deficiency, unspecified B12 deficiency type [facility] Diagnosis Cancer of cecum (HCC)- Primary 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) Malignant neoplasm of colon, unspecified site 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) Malignant neoplasm of colon, unspecified site [facility] Diagnosis Cancer of cecum (HCC)- Primary 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) Malignant neoplasm of colon, unspecified site 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) Malignant neoplasm of colon, unspecified site Anemia due to vitamin B12 deficiency, unspecified B12 deficiency type [facility] Diagnosis Cancer of cecum (HCC)- Primary 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) Malignant neoplasm of colon, unspecified site 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) Malignant neoplasm of colon, unspecified site Anemia due to vitamin B12 deficiency, unspecified B12 deficiency type History of iron deficiency Personal history of diseases of blood and blood-forming organs [facility] Cancer of cecum (HCC)- Primary 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) Malignant neoplasm of colon, unspecified site 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) Malignant neoplasm of colon, unspecified site [facility] Diagnosis 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)- Primary Malignant neoplasm of colon, unspecified site 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) Malignant neoplasm of colon, unspecified site Anemia due to vitamin B12 deficiency, unspecified B12 deficiency type [facility] Diagnosis Cancer of cecum (HCC)- Primary 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) Malignant neoplasm of colon, unspecified site 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) Malignant neoplasm of colon, unspecified site [facility] Diagnosis Cancer of cecum (HCC)- Primary 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) Malignant neoplasm of colon, unspecified site 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) Malignant neoplasm of colon, unspecified site [facility] Diagnosis Cancer of cecum (HCC)- Primary 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) Malignant neoplasm of colon, unspecified site 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) Malignant neoplasm of colon, unspecified site Anemia due to vitamin B12 deficiency, unspecified B12 deficiency type History of iron deficiency Personal history of diseases of blood and blood-forming organs Chemotherapy induced diarrhea Diarrhea [facility] Cancer of cecum (HCC)- Primary 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) Malignant neoplasm of colon, unspecified site 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) Malignant neoplasm of colon, unspecified site [facility] Diagnosis Cancer of cecum (HCC)- Primary 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) Malignant neoplasm of colon, unspecified site 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) Malignant neoplasm of colon, unspecified site [facility] Diagnosis Type 2 diabetes mellitus without complication, without long-term current use of insulin (Multi)- Primary Mixed hyperlipidemia Hypertension, essential, benign Essential hypertension, benign Gastroesophageal reflux disease without esophagitis Esophageal reflux Neurogenic claudication due to lumbar spinal stenosis Spinal stenosis of lumbar region Arthritis of lumbosacral spine Obstructive sleep apnea syndrome Obstructive sleep apnea (adult) (pediatric) Routine general medical examination at health care facility Routine general medical examination at a health care facility Obesity, morbid (Multi) Morbid obesity Primary insomnia Persistent disorder of initiating or maintaining sleep 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 (Multi) documented in this encounter [facility] Work Phone: Evaluation note* Diagnosis 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)- Primary Malignant neoplasm of colon, unspecified site 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 (HCC) Malignant neoplasm of colon, unspecified site Anemia due to vitamin B12 deficiency, unspecified B12 deficiency type [facility] [place] [facility] Diagnosis Cancer of cecum (HCC)- Primary 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 (HCC) Malignant neoplasm of colon, unspecified site 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) Malignant neoplasm of colon, unspecified site [facility] Diagnosis Palliative care by specialist- Primary 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) Malignant neoplasm of colon, unspecified site Colon cancer metastasized to lung (HCC) Malignant neoplasm of colon, unspecified site [facility] 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 [facility] Diagnosis Cancer of cecum (HCC)- Primary 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 (HCC) Malignant neoplasm of colon, unspecified site 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) Malignant neoplasm of colon, unspecified site [facility] Diagnosis Cancer of cecum (HCC)- Primary 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 (HCC) Malignant neoplasm of colon, unspecified site 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) Malignant neoplasm of colon, unspecified site [facility] Diagnosis Lower respiratory infection (e.g., bronchitis, pneumonia, pneumonitis, pulmonitis)- Primary Other diseases of respiratory system, not elsewhere classified Sore throat Acute pharyngitis [facility] Diagnosis Anemia due to vitamin B12 deficiency, unspecified B12 deficiency type- Primary 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 (HCC) Malignant neoplasm of colon, unspecified site 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) Malignant neoplasm of colon, unspecified site History of iron deficiency Personal history of diseases of blood and blood-forming organs [facility] Diagnosis Controlled type 2 diabetes mellitus without complication, with long-term current use of insulin (HCC)- Primary History of COVID-19 Essential hypertension Unspecified essential hypertension Colon cancer metastasized to lung (HCC) Malignant neoplasm of colon, unspecified site Anemia due to vitamin B12 deficiency, unspecified B12 deficiency type Iron deficiency anemia due to chronic blood loss Iron deficiency anemia secondary to blood loss (chronic) Class 1 obesity with serious comorbidity and body mass index (BMI) of 33.0 to 33.9 in adult, unspecified obesity type [facility] Diagnosis Cancer of cecum (HCC)- Primary 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 (HCC) Malignant neoplasm of colon, unspecified site 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) Malignant neoplasm of colon, unspecified site Anemia due to vitamin B12 deficiency, unspecified B12 deficiency type History of iron deficiency Personal history of diseases of blood and blood-forming organs Hypokalemia Hypopotassemia Hypomagnesemia Disorders of magnesium metabolism [facility] Diagnosis Cancer of cecum (HCC)- Primary 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 (HCC) Malignant neoplasm of colon, unspecified site 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) Malignant neoplasm of colon, unspecified site [facility] Diagnosis Cancer of cecum (HCC)- Primary 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 (HCC) Malignant neoplasm of colon, unspecified site 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) Malignant neoplasm of colon, unspecified site [facility] Diagnosis Type 2 diabetes mellitus without retinopathy (HCC)- Primary Type II or unspecified type diabetes mellitus without mention of complication, not stated as uncontrolled Combined form of age-related cataract, both eyes Floaters, bilateral Hyperopia, bilateral Regular astigmatism, bilateral Presbyopia [facility] Diagnosis 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)- Primary Malignant neoplasm of colon, unspecified site 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 (HCC) Malignant neoplasm of colon, unspecified site Anemia due to vitamin B12 deficiency, unspecified B12 deficiency type History of iron deficiency Personal history of diseases of blood and blood-forming organs [facility] Diagnosis Cancer of cecum (HCC)- Primary 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 (HCC) Malignant neoplasm of colon, unspecified site 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) Malignant neoplasm of colon, unspecified site [facility] Diagnosis Cancer of cecum (HCC)- Primary 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 (HCC) Malignant neoplasm of colon, unspecified site 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) Malignant neoplasm of colon, unspecified site Anemia due to vitamin B12 deficiency, unspecified B12 deficiency type History of iron deficiency Personal history of diseases of blood and blood-forming organs [facility] Diagnosis 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 (HCC) Malignant neoplasm of colon, unspecified site 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) Malignant neoplasm of colon, unspecified site [facility] Diagnosis Cancer of cecum (HCC)- Primary 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 (HCC) Malignant neoplasm of colon, unspecified site Metastatic colon cancer to liver (HCC) Malignant neoplasm of colon, unspecified site History of iron deficiency Personal history of diseases of blood and blood-forming organs Chemotherapy induced diarrhea Diarrhea History of anemia due to vitamin B12 deficiency Anemia due to antineoplastic chemotherapy Antineoplastic chemotherapy induced anemia [facility] Diagnosis Metastatic colon cancer to liver (HCC)- Primary Malignant neoplasm of colon, unspecified site 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 (HCC) Malignant neoplasm of colon, unspecified site Anemia due to vitamin B12 deficiency, unspecified B12 deficiency type History of iron deficiency Personal history of diseases of blood and blood-forming organs [facility] Cancer of cecum (HCC)- Primary 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 (HCC) Malignant neoplasm of colon, unspecified site Metastatic colon cancer to liver (HCC) Malignant neoplasm of colon, unspecified site [facility] Metastatic colon cancer to liver (HCC)- Primary Malignant neoplasm of colon, unspecified site 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 (HCC) Malignant neoplasm of colon, unspecified site Anemia due to vitamin B12 deficiency, unspecified B12 deficiency type History of iron deficiency Personal history of diseases of blood and blood-forming organs [facility] Cancer of cecum (HCC)- Primary 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 (HCC) Malignant neoplasm of colon, unspecified site Metastatic colon cancer to liver (HCC) Malignant neoplasm of colon, unspecified site [facility] Cancer of cecum (HCC)- Primary Malignant neoplasm of cecum [facility] Diagnosis Metastatic colon cancer to liver (HCC)- Primary Malignant neoplasm of colon, unspecified site 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 (HCC) Malignant neoplasm of colon, unspecified site Anemia due to vitamin B12 deficiency, unspecified B12 deficiency type History of iron deficiency Personal history of diseases of blood and blood-forming organs [facility] Diagnosis Cancer of cecum (HCC)- Primary Malignant neoplasm of cecum Anemia due to vitamin B12 deficiency, unspecified B12 deficiency type Chemotherapy induced diarrhea Diarrhea [facility] Diagnosis Cancer of cecum (HCC)- Primary 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 (HCC) Malignant neoplasm of colon, unspecified site Metastatic colon cancer to liver (HCC) Malignant neoplasm of colon, unspecified site [facility]* Diagnosis Metastatic colon cancer to liver (HCC)- Primary Malignant neoplasm of colon, unspecified site 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 (HCC) Malignant neoplasm of colon, unspecified site Anemia due to vitamin B12 deficiency, unspecified B12 deficiency type History of iron deficiency Personal history of diseases of blood and blood-forming organs documented in this encounter [facility]* Diagnosis Cancer of cecum (HCC)- Primary 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 (HCC) Malignant neoplasm of colon, unspecified site Metastatic colon cancer to liver (HCC) Malignant neoplasm of colon, unspecified site documented in this encounter [facility]* Diagnosis Cancer of cecum (HCC)- Primary 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 (HCC) Malignant neoplasm of colon, unspecified site Metastatic colon cancer to liver (HCC) Malignant neoplasm of colon, unspecified site Anemia due to vitamin B12 deficiency, unspecified B12 deficiency type History of iron deficiency Personal history of diseases of blood and blood-forming organs documented in this encounter [facility]* Diagnosis Cancer of cecum (HCC)- Primary 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 (HCC) Malignant neoplasm of colon, unspecified site Metastatic colon cancer to liver (HCC) Malignant neoplasm of colon, unspecified site Anemia due to vitamin B12 deficiency, unspecified B12 deficiency type History of iron deficiency Personal history of diseases of blood and blood-forming organs Anemia due to antineoplastic chemotherapy Antineoplastic chemotherapy induced anemia Chemotherapy induced diarrhea Diarrhea documented in this encounter [facility]* Diagnosis Cancer of cecum (HCC)- Primary 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 (HCC) Malignant neoplasm of colon, unspecified site Metastatic colon cancer to liver (HCC) Malignant neoplasm of colon, unspecified site [facility] Diagnosis Metastatic colon cancer to liver (HCC)- Primary Malignant neoplasm of colon, unspecified site 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 (HCC) Malignant neoplasm of colon, unspecified site Anemia due to vitamin B12 deficiency, unspecified B12 deficiency type History of iron deficiency Personal history of diseases of blood and blood-forming organs documented in this encounter [facility]* Diagnosis Cancer of cecum (HCC)- Primary Malignant neoplasm of cecum [facility] 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 (HCC) Malignant neoplasm of colon, unspecified site Metastatic colon cancer to liver (HCC) Malignant neoplasm of colon, unspecified site [facility] Cancer of cecum (HCC)- Primary 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 (HCC) Malignant neoplasm of colon, unspecified site Metastatic colon cancer to liver (HCC) Malignant neoplasm of colon, unspecified site Anemia due to vitamin B12 deficiency, unspecified B12 deficiency type History of iron deficiency Personal history of diseases of blood and blood-forming organs [facility]* Diagnosis Cancer of cecum (HCC)- Primary 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 (HCC) Malignant neoplasm of colon, unspecified site Metastatic colon cancer to liver (HCC) Malignant neoplasm of colon, unspecified site History of anemia due to vitamin B12 deficiency Anemia due to antineoplastic chemotherapy Antineoplastic chemotherapy induced anemia History of iron deficiency Personal history of diseases of blood and blood-forming organs [facility]* Diagnosis Anemia due to vitamin B12 deficiency, unspecified B12 deficiency type- Primary 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 (HCC) Malignant neoplasm of colon, unspecified site Metastatic colon cancer to liver (HCC) Malignant neoplasm of colon, unspecified site History of iron deficiency Personal history of diseases of blood and blood-forming organs documented in this encounter [facility] noteNo assessment information availableWJoint [facility] Work Phone: Evaluation note* Diagnosis 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 (HCC) Malignant neoplasm of colon, unspecified site Metastatic colon cancer to liver (HCC) Malignant neoplasm of colon, unspecified site Anemia due to vitamin B12 deficiency, unspecified B12 deficiency type History of iron deficiency Personal history of diseases of blood and blood-forming organs documented in this encounter [facility]* Diagnosis Cancer of cecum (HCC)- Primary 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 (HCC) Malignant neoplasm of colon, unspecified site Metastatic colon cancer to liver (HCC) Malignant neoplasm of colon, unspecified site Anemia due to vitamin B12 deficiency, unspecified B12 deficiency type History of iron deficiency Personal history of diseases of blood and blood-forming organs Anemia due to antineoplastic chemotherapy Antineoplastic chemotherapy induced anemia [facility]* Diagnosis Cancer of cecum (HCC)- Primary 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) Malignant neoplasm of colon, unspecified site documented in this encounter [facility]* Diagnosis Cancer of cecum (HCC)- Primary 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 (HCC) Malignant neoplasm of colon, unspecified site 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 Metastatic colon cancer to liver (HCC) Malignant neoplasm of colon, unspecified site History of iron deficiency Personal history of diseases of blood and blood-forming organs Anemia due to vitamin B12 deficiency, unspecified B12 deficiency type documented in this encounter [facility]* Diagnosis Cancer of cecum (HCC)- Primary 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) Malignant neoplasm of colon, unspecified site History of iron deficiency Personal history of diseases of blood and blood-forming organs documented in this encounter [facility]* Diagnosis Metastatic colon cancer to liver (HCC)- Primary Malignant neoplasm of colon, unspecified site Chemotherapy induced diarrhea Diarrhea documented in this encounter [facility]* Diagnosis Controlled type 2 diabetes mellitus without complication, with long-term current use of insulin (HCC)- Primary documented in this encounter [facility]* Diagnosis Onset Date Resolution Status Admit Date Anemia acute January 09 4:35pm Colon cancer metastasized to multiple sites acute January 09, 2025 4:35pm Pneumonia acute January 09 4:35pm [facility] Work Phone: Evaluation note* Diagnosis Nausea and vomiting, unspecified vomiting type- Primary Diarrhea, unspecified type SOB (shortness of breath) Shortness of breath Productive cough Cough Hypokalemia Hypopotassemia Hyponatremia Hyposmolality and/or hyponatremia Tachycardia Tachycardia, unspecified Dehydration Colon cancer metastasized to lung (HCC) Malignant neoplasm of colon, unspecified site Anemia due to antineoplastic chemotherapy Antineoplastic chemotherapy induced anemia Pallor Controlled type 2 diabetes mellitus without complication, with long-term current use of insulin (HCC) Essential hypertension Unspecified essential hypertension Productive cough Cough [facility]* The patient is being seen for the subsequent annual wellness visit. * Past Medical, Surgical and Family History: reviewed and updated in chart. * Medications and Supplements: Medications and supplements, including calcium and vitamins reviewed and updated in chart. * No, the patient is not using opioids. * Patient Self Assessment of Health Status: good. * Tobacco use: Non-User * Alcohol use: Non-User * Illicit drug use: Non-User * Current diet: well balanced diet. * Exercise Frequency: regularly. * Depression/Suicide Screening: . * During the past 2 weeks, the patient has not felt down, depressed or hopeless. * During the past 2 weeks, the patient has not felt little interest or pleasure in doing things. * Hearing Impairment: none. * Cognitive Impairment: No cognitive impairment observed. * Bathing: performs independently. * Dressing: performs independently. * Walking: performs independently. * Managing Finances: performs independently. * Shopping: performs independently. * Managing Medications: performs independently. * Housework / Basic Home Maintenance: performs independently. * Falls Risk Screening:. DIPTI has not fallen in the last 6 months. * Home safety risk factors: none. * No low blood sugars since last OV, seen opthalmology in the past year, and no numbness or tingling in feet, skin normal. * No headache, chest pain, shortness of breath, dizziness, lightheadedness, or edema * Taking PPI daily without breakthrough symptoms. Reviewed dietary, caffeine, tobacco, alcohol, and NSAID use. No dyspepsia, dysphagia, reflux, melena, or abdominal pain. * Patient has been using their CPAP nightly and is experiencing restful sleep, no morning headaches, no witnessed snoring, and notices a difference if they do not use the device. * LBP and shoulder pain, has been moving homes lately, uses some NSAIDs prn [facility] Work Phone: History of Present illness Narrative* The patient is being seen for the subsequent annual wellness visit. * Past Medical, Surgical and Family History: reviewed and updated in chart. * Medications and Supplements: Review of all medications by a prescribing practitioner or clinical pharmacist (such as prescriptions, OTCs, herbal therapies and supplements) documented in the medical record. * No, the patient is not using opioids. * Patient Self Assessment of Health Status: good. * Tobacco use: Non-User * Alcohol use: Non-User * Illicit drug use: Non-User * Current diet: well balanced diet. * Exercise Frequency: regularly. * Depression/Suicide Screening: . * During the past 2 weeks, the patient has not felt down, depressed or hopeless. * During the past 2 weeks, the patient has not felt little interest or pleasure in doing things. * Hearing Impairment: none. * Cognitive Impairment: No cognitive impairment observed. * Bathing: performs independently. * Dressing: performs independently. * Walking: performs independently. * Managing Finances: performs independently. * Shopping: performs independently. * Managing Medications: performs independently. * Housework / Basic Home Maintenance: performs independently. * Falls Risk Screening:. DIPTI has not fallen in the last 6 months. * Home safety risk factors: none. * Advance directives:. Patient has living will. Placed in chart. * Patient's End of Life Decisions: End of life decisions were reviewed with the patient. I agree to follow the patient's decisions. * No low blood sugars since last OV, seen opthalmology in the past year, and no numbness or tingling in feet, skin normal. * No headache, chest pain, shortness of breath, dizziness, lightheadedness, or edema [employer] [facility] Work Phone: History of Present illness Narrative* NOt as sharp as it was, more dull/burning sensation, times gets worse if bends over, no pain with DB/cough * no increase in GERD, nausea or worse after eating ,some bloating after eating, trying to eat less/frequent * some better after eating * some better if puts pressure on side * NSAIDs some help * hard to sleep at night, worse at night [employer] [facility] Work Phone: History of Present illness Narrative* NOt as sharp as it was, more dull/burning sensation, times gets worse if bends over, no pain with DB/cough * no increase in GERD, nausea or worse after eating ,some bloating after eating, trying to eat less/frequent * some better after eating * some better if puts pressure on side * NSAIDs some help * hard to sleep at night, worse at night [facility] Work Phone: History of Present illness Narrative* To see pain medicine 04/14 * + fatigued, pain in side still there (not as sharp, dull ache), sensitive to touch * gabapentin helped at first, worse in the past 2 nights * worse if bends over, pain manageable [facility] Work Phone: History of Present illness Narrative* On a scale of 0 to 10, the patient rates the pain at 2. * Pain Location: RIGHT SIDE WRAPPING AROUND TO HIS BACK. * Pain Quality: Burning, Stabbing and Tenderness. * Pain Radiation: Right Lateral Chest and Right Posterior Chest. * Sensory/ Motor: COLD. * Timing/Duration: Constant and 6-12 weeks duration. * Exacerbating Factors: rest and lifting. * Alleviating Factors: Medications, Repositioning. * 24 Hour Behavior: * Symptoms are worse in the am. * Symptoms are worse as the day progresses. * Symptoms are worse in the pm. * Symptoms are worse when lying down. * Effect of Movement on Symptoms: * Bending makes symptoms worse. * Lying makes symptoms worse. COLD FEELING IN CHEST. * Rising from sitting doesn't change symptoms. * Sitting doesn't change symptoms. * Standing doesn't change symptoms. * Rising from supine to sitting makes symptoms worse. * Turning doesn't change symptoms. * Walking doesn't change symptoms. * Twisting makes symptoms worse. * Weather doesn't change symptoms. * Coughing/sneezing doesn't change symptoms. * Pushing motion makes symptoms worse. * Pulling motion makes symptoms worse. * Lifting: Worse. * Goals for Pain Management: * OPIOID RISK SCORE=0. [facility]: History of Present illness Narrative* NOt as sharp as it was, more dull/burning sensation, times gets worse if bends over, no pain with DB/cough * no increase in GERD, nausea or worse after eating ,some bloating after eating, trying to eat less/frequent * some better after eating * some better if puts pressure on side * NSAIDs some help * hard to sleep at night, worse at night [facility] Work Phone: History of Present illness Narrative* The patient is being seen for the subsequent annual wellness visit. * Past Medical, Surgical and Family History: reviewed and updated in chart. * Medications and Supplements: Review of all medications by a prescribing practitioner or clinical pharmacist (such as prescriptions, OTCs, herbal therapies and supplements) documented in the medical record. * No, the patient is not using opioids. * Patient Self Assessment of Health Status: good. * Tobacco use: Non-User * Alcohol use: Non-User * Illicit drug use: Non-User * Current diet: well balanced diet. * Exercise Frequency: regularly. * Depression/Suicide Screening: . * During the past 2 weeks, the patient has not felt down, depressed or hopeless. * During the past 2 weeks, the patient has not felt little interest or pleasure in doing things. * Hearing Impairment: none. * Cognitive Impairment: No cognitive impairment observed. * Bathing: performs independently. * Dressing: performs independently. * Walking: performs independently. * Managing Finances: performs independently. * Shopping: performs independently. * Managing Medications: performs independently. * Housework / Basic Home Maintenance: performs independently. * Falls Risk Screening:. DIPTI has not fallen in the last 6 months. * Home safety risk factors: none. * Advance directives:. Advanced Care Planning discussed and documented advance care plan or surrogatedecision maker documented in the medical record. Patient has living will. Patient has healthcare POA. * Patient's End of Life Decisions: End of life decisions were reviewed with the patient. I agree to follow the patient's decisions. * No low blood sugars since last OV, seen opthalmology in the past year, and no numbness or tingling in feet, skin normal. * No headache, chest pain, shortness of breath (some FERNANDEZ), dizziness, lightheadedness, or edema * Taking PPI daily without breakthrough symptoms. Reviewed dietary, caffeine, tobacco, alcohol, and NSAID use. No dyspepsia, dysphagia, reflux, melena, or abdominal pain. * seen pain medicine, pain in right abdomen better, pain medicine Rx pregabalin (hard to sleep) * Patient has been using their CPAP nightly and is experiencing restful sleep, no morning headaches, no witnessed snoring, and notices a difference if they do not use the device. * has a hard time sleeping at night (hard to sleep through the night), Ambien helped in the past * started to exercise in the past week * seen Cardiology in November, had Echo done [facility] Work Phone: Hospital Discharge instructions* Attachments The following attachments cannot be sent through Care Everywhere. 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 Obstructive sleep apnea syndrome Procedures Follow Up In Primary Care - Established Dayami Roe MD [address] [place] [address] Referral ID Status Reason Start Date Expiration Date V isits Requested Visits Authorized [id number] Authorized 12/31/2022 06/29/2023 1 1 [facility] Work Phone: Reztmg for referral (narrative)* Consultation (Routine) - Authorized Specialty Diagnoses / Procedures Referred By Oren jones Referred To Contact Primary Care Diagnoses Mixed hyperlipidemia Hypertension, essential, benign Type 2 diabetes mellitus without complication, without long-term current use of insulin (CMS/HCC) Gastroesophageal reflux disease without esophagitis 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 Obstructive sleep apnea syndrome Routine general medical examination at health care facility Obesity, morbid (CMS/HCC) Primary insomnia Procedures Follow Up In Primary Care - Established Dayami Roe MD [address] [place] [address] Referral ID Status Reason Start Date Expiration Date V isits Requested Visits Authorized [id number] Authorized 07/03/2023 07/02/2024 1 1 [facility] Work Phone: Reuasb for referral (narrative)* Consultation (Routine) - Authorized Specialty Diagnoses / Procedures Referred By Oren jones Referred To Contact Primary Care Diagnoses Hypertension, essential, benign Procedures Follow Up In Primary Care - Established Dayami Roe MD [address] [place] [address] Referral ID Status Reason Start Date Expiration Date V isits Requested Visits Authorized [id number] Authorized 09/28/2023 09/27/2024 1 1 [facility] Work Phone: Reason for referral (narrative)* Consultation (Routine) - Authorized Specialty Diagnoses / Procedures Referred By Oren jones Referred To Contact Primary Care Diagnoses Mixed hyperlipidemia Hypertension, essential, benign Type 2 diabetes mellitus without complication, without long-term current use of insulin (Multi) Gastroesophageal reflux disease without esophagitis 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 Obstructive sleep apnea syndrome Routine general medical examination at health care facility Obesity, morbid (Multi) Primary insomnia 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 (Multi) Procedures Follow Up In Primary Care - Established Dayami Roe MD [address] [place] [address] Referral ID Status Reason Start Date Expiration Date V isits Requested Visits Authorized [id number] Authorized 01/01/2024 12/31/2024 1 1 [facility] Work Phone: Reason for referral (narrative)No reason for referral information availableWJoint Township District [facility] Work Phone: Reason for visit Narrative* MRI/CT (Routine) - Closed Specialty Diagnoses / Procedures Referred By Oren jones Referred To Contact CT IMAGING Diagnoses Cancer of cecum (HCC) 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) Procedures CT ABD/PEL W IVCON CT ABD & PELVIS W/CONTRAST Aarti Bar DO [address] [place] [address] Phone: tel: fax: [place] [phone] Referral ID Status Reason Start Date Expiration Date V isits Requested Visits Authorized [id number] Closed Auto-Generate d Referral 07/20/2024 08/19/2025 1 1 [facility] for visit Narrative* MRI/CT (Routine) - Closed Specialty Diagnoses / Procedures Referred By Contac t Referred To Contact CT IMAGING Diagnoses Cancer of cecum (HCC) 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) Procedures CT ABD/PEL W IVCON CT ABD & PELVIS W/CONTRAST Aarti Bar, DO [address] [place] [address] Phone: tel: fax: [place] [phone] Referral ID Status Reason Start Date Expiration Date V isits Requested Visits Authorized [id number] Closed Auto-Generate d Referral 10/12/2024 11/11/2025 1 1 [facility] for visit Narrative* [place] Prior Authorization (Routine) - Pending Review Specialty Diagnoses / Procedures Referred By Contac t Referred To Contact Diagnoses Cancer of cecum (HCC) 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) Procedures LEUCOVORIN CALCIUM INJECTION PALONOSETRON HCL IRINOTECAN, 20 MG FLUOROURACIL INJECTION INJ., ZIRABEV, 10 MG Aarti Bar, DO [address] [place] [address] Phone: tel: fax: Aarti Bar, DO [address] [place] [address] Phone: tel: fax: Referral ID Status Reason Start Date Expiration Date Visits Requested Visits Authorized [id number] Pending Review Patient Cleared - Admin/Chair man/Directo r advise to proceed or did not respond 11/23/2024 03/26/2025 1 99 [facility] Summary Purpose Family History Unknown Family Member Name Dates Details Family history of coronary a rtery disease: Mother(V17.3, Z82.49) Status:Active Family history of malignant neoplasm of breast: Sister(V16.3, Z80.3) Status:Active Family history of acute myoc ardial infarction: Mother(V17.3, Z82.49) Status:Active Family history of hypertensi on: Mother, Father(V17.49, Z82.49) Status:Active Unknown Family Member Name Dates Details Family history of hypertensi on: Mother, Father(V17.49, Z82.49) Status:Active Family history of acute myoc ardial infarction: Mother(V17.3, Z82.49) Status:Active Family history of malignant neoplasm of breast: Sister(V16.3, Z80.3) Status:Active Family history of coronary a rtery disease: Mother(V17.3, Z82.49) Status:Active Unknown Family Member Name Dates Details Family history of hypertensi on: Mother, Father(V17.49, Z82.49) Status:Active Family history of acute myoc ardial infarction: Mother(V17.3, Z82.49) Status:Active Family history of malignant neoplasm of breast: Sister(V16.3, Z80.3) Status:Active Family history of coronary a rtery disease: Mother(V17.3, Z82.49) Status:Active Unknown Family Member Name Dates Details Family history of acute myoc ardial infarction: Mother(V17.3, Z82.49) Status:Active Family history of hypertensi on: Mother, Father(V17.49, Z82.49) Status:Active Family history of malignant neoplasm of breast: Sister(V16.3, Z80.3) Status:Active Family history of coronary a rtery disease: Mother(V17.3, Z82.49) Status:Active Unknown Family Member Name Dates Details Family history of hypertensi on: Mother, Father(V17.49, Z82.49) Status:Active Family history of acute myoc ardial infarction: Mother(V17.3, Z82.49) Status:Active Family history of malignant neoplasm of breast: Sister(V16.3, Z80.3) Status:Active Family history of coronary a rtery disease: Mother(V17.3, Z82.49) Status:Active Unknown Family Member Name Dates Details Family history of coronary a rtery disease: Mother(V17.3, Z82.49) Status:Active Family history of malignant neoplasm of breast: Sister(V16.3, Z80.3) Status:Active Family history of acute myoc ardial infarction: Mother(V17.3, Z82.49) Status:Active Family history of hypertensi on: Mother, Father(V17.49, Z82.49) Status:Active Unknown Family Member Name Dates Details Family history of hypertensi on: Mother, Father(V17.49, Z82.49) Status:Active Family history of acute myoc ardial infarction: Mother(V17.3, Z82.49) Status:Active Family history of malignant neoplasm of breast: Sister(V16.3, Z80.3) Status:Active Family history of coronary a rtery disease: Mother(V17.3, Z82.49) Status:Active Unknown Family Member Name Dates Details Family history of coronary a rtery disease: Mother(V17.3, Z82.49) Status:Active Family history of malignant neoplasm of breast: Sister(V16.3, Z80.3) Status:Active Family history of acute myoc ardial infarction: Mother(V17.3, Z82.49) Status:Active Family history of hypertensi on: Mother, Father(V17.49, Z82.49) Status:Active Unknown Family Member Name Dates Details Family history of hypertensi on: Mother, Father(V17.49, Z82.49) Status:Active Family history of acute myoc ardial infarction: Mother(V17.3, Z82.49) Status:Active Family history of malignant neoplasm of breast: Sister(V16.3, Z80.3) Status:Active Family history of coronary a rtery disease: Mother(V17.3, Z82.49) Status:Active Unknown Family Member Name Dates Details Family history of coronary a rtery disease: Mother(V17.3, Z82.49) Status:Active Family history of malignant neoplasm of breast: Sister(V16.3, Z80.3) Status:Active Family history of acute myoc ardial infarction: Mother(V17.3, Z82.49) Status:Active Family history of hypertensi on: Mother, Father(V17.49, Z82.49) Status:Active Unknown Family Member Name Dates Details Family history of hypertensi on: Mother, Father(V17.49, Z82.49) Status:Active Family history of acute myoc ardial infarction: Mother(V17.3, Z82.49) Status:Active Family history of malignant neoplasm of breast: Sister(V16.3, Z80.3) Status:Active Family history of coronary a rtery disease: Mother(V17.3, Z82.49) Status:Active Unknown Family Member Name Dates Details Family history of hypertensi on: Mother, Father(V17.49, Z82.49) Status:Active Family history of acute myoc ardial infarction: Mother(V17.3, Z82.49) Status:Active Family history of malignant neoplasm of breast: Sister(V16.3, Z80.3) Status:Active Family history of coronary a rtery disease: Mother(V17.3, Z82.49) Status:Active Unknown Family Member Name Dates Details Family history of hypertensi on: Mother, Father(V17.49, Z82.49) Status:Active Family history of acute myoc ardial infarction: Mother(V17.3, Z82.49) Status:Active Family history of malignant neoplasm of breast: Sister(V16.3, Z80.3) Status:Active Family history of coronary a rtery disease: Mother(V17.3, Z82.49) Status:Active Unknown Family Member Name Dates Details Family history of coronary a rtery disease: Mother(V17.3, Z82.49) Status:Active Family history of malignant neoplasm of breast: Sister(V16.3, Z80.3) Status:Active Family history of acute myoc ardial infarction: Mother(V17.3, Z82.49) Status:Active Family history of hypertensi on: Mother, Father(V17.49, Z82.49) Status:Active Unknown Family Member Name Dates Details Family history of coronary a rtery disease: Mother(V17.3, Z82.49) Status:Active Family history of malignant neoplasm of breast: Sister(V16.3, Z80.3) Status:Active Family history of acute myoc ardial infarction: Mother(V17.3, Z82.49) Status:Active Family history of hypertensi on: Mother, Father(V17.49, Z82.49) Status:Active Unknown Family Member Name Dates Details Family history of hypertensi on: Mother, Father(V17.49, Z82.49) Status:Active Family history of acute myoc ardial infarction: Mother(V17.3, Z82.49) Status:Active Family history of malignant neoplasm of breast: Sister(V16.3, Z80.3) Status:Active Family history of coronary a rtery disease: Mother(V17.3, Z82.49) Status:Active Unknown Family Member Name Dates Details Family history of hypertensi on: Mother, Father(V17.49, Z82.49) Status:Active Family history of acute myoc ardial infarction: Mother(V17.3, Z82.49) Status:Active Family history of malignant neoplasm of breast: Sister(V16.3, Z80.3) Status:Active Family history of coronary a rtery disease: Mother(V17.3, Z82.49) Status:Active Unknown Family Member Name Dates Details Family history of hypertensi on: Mother, Father(V17.49, Z82.49) Status:Active Family history of acute myoc ardial infarction: Mother(V17.3, Z82.49) Status:Active Family history of malignant neoplasm of breast: Sister(V16.3, Z80.3) Status:Active Family history of coronary a rtery disease: Mother(V17.3, Z82.49) Status:Active Unknown Family Member Name Dates Details Family history of hypertensi on: Mother, Father(V17.49, Z82.49) Status:Active Family history of acute myoc ardial infarction: Mother(V17.3, Z82.49) Status:Active Family history of malignant neoplasm of breast: Sister(V16.3, Z80.3) Status:Active Family history of coronary a rtery disease: Mother(V17.3, Z82.49) Status:Active Unknown Family Member Name Dates Details Family history of hypertensi on: Mother, Father(V17.49, Z82.49) Status:Active Family history of acute myoc ardial infarction: Mother(V17.3, Z82.49) Status:Active Family history of malignant neoplasm of breast: Sister(V16.3, Z80.3) Status:Active Family history of coronary a rtery disease: Mother(V17.3, Z82.49) Status:Active Unknown Family Member Name Dates Details Family history of hypertensi on: Mother, Father(V17.49, Z82.49) Status:Active Family history of acute myoc ardial infarction: Mother(V17.3, Z82.49) Status:Active Family history of malignant neoplasm of breast: Sister(V16.3, Z80.3) Status:Active Family history of coronary a rtery disease: Mother(V17.3, Z82.49) Status:Active Unknown Family Member Name Dates Details Family history of coronary a rtery disease: Mother(V17.3, Z82.49) Status:Active Family history of malignant neoplasm of breast: Sister(V16.3, Z80.3) Status:Active Family history of acute myoc ardial infarction: Mother(V17.3, Z82.49) Status:Active Family history of hypertensi on: Mother, Father(V17.49, Z82.49) Status:Active Unknown Family Member Name Dates Details Family history of hypertensi on: Mother, Father(V17.49, Z82.49) Status:Active Family history of acute myoc ardial infarction: Mother(V17.3, Z82.49) Status:Active Family history of malignant neoplasm of breast: Sister(V16.3, Z80.3) Status:Active Family history of coronary a rtery disease: Mother(V17.3, Z82.49) Status:Active Unknown Family Member Name Dates Details Family history of hypertensi on: Mother, Father(V17.49, Z82.49) Status:Active Family history of acute myoc ardial infarction: Mother(V17.3, Z82.49) Status:Active Family history of malignant neoplasm of breast: Sister(V16.3, Z80.3) Status:Active Family history of coronary a rtery disease: Mother(V17.3, Z82.49) Status:Active Unknown Family Member Name Dates Details Family history of hypertensi on: Mother, Father(V17.49, Z82.49) Status:Active Family history of acute myoc ardial infarction: Mother(V17.3, Z82.49) Status:Active Family history of malignant neoplasm of breast: Sister(V16.3, Z80.3) Status:Active Family history of coronary a rtery disease: Mother(V17.3, Z82.49) Status:Active Unknown Family Member Name Dates Details Family history of hypertensi on: Mother, Father(V17.49, Z82.49) Status:Active Family history of acute myoc ardial infarction: Mother(V17.3, Z82.49) Status:Active Family history of malignant neoplasm of breast: Sister(V16.3, Z80.3) Status:Active Family history of coronary a rtery disease: Mother(V17.3, Z82.49) Status:Active Unknown Family Member Name Dates Details Family history of coronary a rtery disease: Mother(V17.3, Z82.49) Status:Active Family history of malignant neoplasm of breast: Sister(V16.3, Z80.3) Status:Active Family history of acute myoc ardial infarction: Mother(V17.3, Z82.49) Status:Active Family history of hypertensi on: Mother, Father(V17.49, Z82.49) Status:Active Unknown Family Member Name Dates Details Family history of hypertensi on: Mother, Father(V17.49, Z82.49) Status:Active Family history of acute myoc ardial infarction: Mother(V17.3, Z82.49) Status:Active Family history of malignant neoplasm of breast: Sister(V16.3, Z80.3) Status:Active Family history of coronary a rtery disease: Mother(V17.3, Z82.49) Status:Active Advance Directives Date Activated Date Inactivated Comments 10/19/2023 10:59 AM 10/29/2023 7:33 PM Date Activated Date Inactivated Comments 02/10/2022 7:01 AM 02/10/2022 12:33 PM Latest Code Status on File Code Status Date Activated Date Inactivated Comments Full Code 02/10/2022 7:01 AM 02/10/2022 12:33 PM Latest Code Status on File Code Status Date Activated Date Inactivated Comments Full Code 02/10/2022 7:01 AM 02/10/2022 12:33 PM Date Activated Date Inactivated Comments 10/19/2023 10:59 AM Date Activated Date Inactivated Comments 02/10/2022 7:01 AM 02/10/2022 12:33 PM Date Activated Date Inactivated Comments 10/19/2023 10:59 AM Date Activated Date Inactivated Comments 10/19/2023 10:59 AM 10/29/2023 7:33 PM Documents on File Type Date Recorded 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 No January 09, 2025 1:58pm Chief Complaint 6 MO F/U DM HT REV LABS6 MO GERD HL [facility] THUMB LACERATION6 MO F/U REV LABSPAIN RT SIDE PAIN X1MO RUQ2 WK F/U2 WK F/U1 WK F/U* NEW PATIENT, PRESENTS WITH PAIN TO THE RIGHT SIDE OF HIS CHEST UNDER HIS PECTORAL LINE THAT WRAPS TO THE BACK, HE GETS A SHARP,STABBING PAIN WITH LIFTING, WHEN HE LAYS DOWN THE PAIN IS WORSE WITH A COLD FEELING THROUGHOUT HIS CHEST, HE HASN'T SLEPT FOR THE PAST 7 WEEKS, HIS PAIN IS CONSTANT, THE DELANEY OXICAM SEEMS TO GIVE HIM SOME RELIEF, NO PHYSICAL THERAPY, NO CHIROPRACTIC VISITS, REPOSITIONS OFTEN, THORACIC X-RAY DONE, CT ABDOMEN/PELIVIS DONE, ULTRASOUND OF GALLBLADDER DONE, HIS DISCOMFORT IS ALWAYS AROUND A 2/10 BUT SPIKES AT TIMES * This is a 76-year-old male here for a new patient appointment for chief complaint of right-sided mid to low back and rib pain. He rates the pain currently as a 2 out of 10 but at its worst it can getup to a 7-8 out of 10. He reports that this has been going on for 7 weeks. He cannot recall any caus ative event but reports that the symptoms came on relatively abruptly. He states that the pain starts in the mid to low back and radiates under the right lower ribs anteriorly. He does not have symptoms on the left side. He never had a rash. He states that the symptoms are constant to an extent butare generally worst when he is up and walking. He has been using meloxicam which helps some. He reports the pain impacts his function during the day and keeps him from sleeping at night. He was triedon gabapentin which initially seemed to help but then he developed side effects to it so he had to stop it. He has had a chest x-ray, a thoracic x-ray, and an abdominal CT scan along with a HIDA scan. Thus far no cause for his symptoms has been found. He denies numbness, tingling, weakness, or lossof bladder or bowel control. * The patient's past medical, social, and family history along with medications and allergies are available and were reviewed. 2 WK F/U* FUV MRI. PATIENT PRESENTS WITH PAIN IN HIS RIGHT LOWER BACK AND RIGHT SIDE. HE STATES THE PAIN IN HIS SIDE IS DULL, TENDER AND BURNING. THE PAIN IN HIS BACK IS DULL. HIS PAIN NEVER GOES AWAY. HE STATES THAT IT IS WORSE WITH STANDING, WALKING, BENDING OR TWISTING AND DAILY ACTIVITIES. HE DENIES USING ICE OR HEAT, WALKER, DEEP BREATHING OR MASSAGE TO HELP WITH HIS PAIN. [facility] OR DOING AT HOME STRETCHES/EXERCISE. PATIENT STATES HE HAS A CANE AT HOME BUT HE DOES NOT USE IT. HE TAKES MEDICATIONS PRESCRIBED; DENIES NEEDING REFILLS TODAY. 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 PATIENT DENIES NUMBNESS/PINS AND NEEDLES OR WEAKNESS. HE STATES THAT HE HAS HAD IT UP TO HERE (POINTING TO FOREHEAD) WITH ALL OF THE TESTS AND JUST WOULD LIKE AN ANSWER; STATING THAT HE HAS BEEN IN PAIN FOR TWO MONTHS. * SMOKING NEGATIVE. DEPRESSION NEGATIVE. BMI EDUCATION GIVEN. PAIN 2/10 PAIN. 3 mo f/u labs Reason for Referral Specialty Diagnoses / Procedures Referred By Oren jones Referred To Contact Cardiology Diagnoses Shortness of breath Dyspnea, unspecified type Dameon Rai DO [address] [place] [address] [facility] [address] [place], [place] [address] [place] [address] Referral ID Status Reason Start Date Expiration Date V isits Requested Visits Authorized [id number] Authorized 01/15/2022 01/15/2023 1 1 Specialty Diagnoses / Procedures Referred By Contac t Referred To Contact Cardiology Diagnoses Coronary artery disease involving [place] coronary artery of [place] heart without angina pectoris Dyspnea, unspecified type Procedures Echocardiogram complete Dipti Hoffman MD [address] [place] [address] Referral ID Status Reason Start Date Expiration Date V isits Requested Visits Authorized [id number] New Request 05/27/2022 05/27/2023 1 1 Specialty Diagnoses / Procedures Referred By Contac t Referred To Contact Radiology Diagnoses Adenocarcinoma of colon (HCC) Procedures PET Tumor Imaging With CT Skull To Thigh Hayden Balderas DO [address] [place] [address] Referral ID Status Reason Start Date Expiration Date V isits Requested Visits Authorized [id number] New Request 11/12/2023 11/11/2024 4 4 Specialty Diagnoses / Procedures Referred By Contac t Referred To Contact Hematology and Oncology Diagnoses 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 (Multi) Dayami Roe MD [address] [place] [address] Aarti Bar DO [address] [place] [address] Referral ID Status Reason Start Date Expiration Date Visits Requested Visits Authorized [id number] Authorized Specialty Services Required 11/13/2023 11/12/2024 1 1 [facility]ty Diagnoses / [facility] Diagnoses Cancer of cecum (HCC) 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) Malignant neoplasm of colon, unspecified part of colon (HCC) Procedures CT CHEST W IVCON DIAGNOSTIC COMPUTED TOMOGRAPHY THORAX W/CONTRAST Rhonda Owens [address] [place] [address] [place] [address] Referral ID Status Reason Start Date Expiration Date Visits Requested Visits Authorized [id number] Authorized Auto-Generat ed Referral 03/01/2024 06/28/2024 2 2 Specialty Diagnoses / [facility] CT [facility]ING Diagnoses Cancer of cecum (HCC) 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) Malignant neoplasm of colon, unspecified part of colon (HCC) Procedures CT ABD/PEL W IVCON CT ABD & PELVIS W/CONTRAST Rhonda Owens [address] [place] [address] [place] [address] Referral ID Status Reason Start Date Expiration Date Visits Requested Visits Authorized [id number] Authorized Auto-Generat ed Referral 03/01/2024 06/28/2024 1 1 Specialty Diagnoses / Procedures Referred By Contac t Referred To Contact Ophthalmology Diagnoses Controlled type 2 diabetes mellitus without complication, with long-term current use of insulin (HCC) Procedures CONSULT TO OPHTHALMOLOGY OFFICE/OUTPATIENT NEW [facility] MDM 60 MINUTES Dayami Puri MD [address] [place] [id number] Referral ID Status Reason Start Date Expiration Date Visits Requested Visits Authorized [id number] Authorized PCP Requested Referral 03/08/2024 03/08/2025 1 1 Specialty Diagnoses / Procedures Referred By Contac t Referred To Contact Diagnoses 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) Procedures CONSULT TO PALLIATIVE CARE OFFICE/OUTPATIENT NEW [facility] MDM 60 MINUTES Dayami Puri MD [facility] [place] [address] Referral ID Status Reason Start Date Expiration Date Visits Requested Visits Authorized [id number] Authorized PCP Requested Referral 03/08/2024 03/08/2025 1 1 Specialty Diagnoses / Procedures Referred By Contac t Referred To Contact CT IMAGING Diagnoses Cancer of cecum (HCC) 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) Procedures CT ABD/PEL W IVCON CT ABD & PELVIS W/CONTRAST Aarti Bar DO [address] [facility] [place] [address] [place] [address] Referral ID Status Reason Start Date Expiration Date Visits Requested Visits Authorized [id number] Authorized Auto-Generat ed Referral 07/20/2024 08/19/2025 1 1 Specialty Diagnoses / Procedures Referred By Contac t Referred To Contact CT IMAGING Diagnoses Cancer of cecum (HCC) 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) Procedures CT CHEST W IVCON DIAGNOSTIC COMPUTED TOMOGRAPHY THORAX W/CONTRAST Aarti Bar, DO [address] [place] [address] [place] [address] Referral ID Status Reason Start Date Expiration Date Visits Requested Visits Authorized [id number] Authorized Auto-Generat ed Referral 07/20/2024 08/19/2025 1 1 Chief Complaint and Reason for Visit Chief Complaint Admit Date 2 UNITS PRBC November 24, 2024 7:46a m Chief Complaint Admit Date 2 UNITS PRBC November 24, 2024 7:46a m PNEUMONIA, LOW BP January 09, 2025 4:35 pm Reason for Visit Admit Date Anemia January 09, 2025 4:35 pm Colon cancer metastasized to multiple si raudel January 09, 2025 4:35pm Pneumonia January 09, 2025 4:35 pm Additional Source Comments (unrecognized sect ion and content) No Status Records FoundNo Status Records FoundNo Status Records FoundNo Status Records FoundNo Status Records FoundNo Status Records FoundNo Status Records FoundNo Status Records FoundNo Status Records FoundNo Status Records FoundNo Status Records FoundNo Status Records FoundNo Status Records Found INFORMATION SOURCE (unrecogn ized section and content) DATE CREATED AUTHOR 12/17/2017 [facility] DATE CREATED AUTHOR AUTHOR'S ORGANIZ ATION 03/27/2019 [facility] DATE CREATED AUTHOR AUTHOR'S ORGANIZ ATION 04/26/2022 [facility] DATE CREATED AUTHOR AUTHOR'S ORGANIZ ATION 04/27/2022 [facility] DATE CREATED AUTHOR AUTHOR'S ORGANIZ ATION 12/27/2022 [facility] DATE CREATED AUTHOR AUTHOR'S ORGANIZ ATION 10/26/2023 [facility] DATE CREATED AUTHOR AUTHOR'S ORGANIZ ATION 12/27/2023 [facility] DATE CREATED AUTHOR AUTHOR'S ORGANIZ ATION 01/02/2024 [facility] DATE CREATED AUTHOR AUTHOR'S ORGANIZ ATION 01/16/2024 [facility] DATE CREATED AUTHOR AUTHOR'S ORGANIZ ATION 02/06/2024 [facility] DATE CREATED AUTHOR AUTHOR'S ORGANIZ ATION 11/30/2024 [facility] DATE CREATED AUTHOR AUTHOR'S ORGANIZ ATION 12/21/2024 [facility] DATE CREATED AUTHOR AUTHOR'S ORGANIZ ATION 01/06/2025 [facility] Care Teams (unrecognized sec tion and content) [employer] Blade Repair Technician Relationship Specialty Start Date End Date Dayami Roe MD [address] [place] [phone] PCP - General Family Medicine 08/05/21 [employer] Repair Technician Relationship Specialty Start Date End Date Dayami Roe MD [address] [place] [phone] PCP - General Family Medicine 08/05/21 [employer] Repair Technician Relationship Specialty Start Date End Date Dayami Roe MD [address] [place] [phone] PCP - General Family Medicine 08/05/21 [employer] Blade Repair Technician Relationship Specialty Start Date End Date Dayami Roe MD [address] [place] [phone] PCP - General 03/01/19 Dayami Roe MD [address] [facility] [place] [phone] PCP - [employer] PCP 06/29/22 [employer] Blade Repair Technician Relationship Specialty Start Date End Date Dayami Roe MD [address] [place] [phone] PCP - General Family Medicine 08/05/21 [employer] Repair Technician Relationship Specialty Start Date End Date Dayami Roe MD PCP - General 03/01/19 Dayami Roe MD [address] [place], [place] [phone]- PCP - [employer]age PCP 06/29/22 [employer] Rep[employer] Technician Relationship Specialty Start Date End Date Dayami Roe MD PCP - General 03/01/19 Dayami Roe MD [address] [place], [place] [phone]- PCP - [employer] PCP 06/29/22 [employer] Repair Technician Relationship Specialty Start Date End Date Dayami Roe MD [address] [place] [phone] PCP - General Family Medicine 08/05/21 [employer] Bl[employer] Repair Technician Relationship Specialty Start Date End Date Dayami Roe MD [address] [place] [phone] PCP - General Family Medicine 08/05/21 [employer] Blade Repair Technician Relationship Specialty Start Date End Date Dayami Roe MD [address] [place] [phone]- PCP - General Family Medicine 08/05/21 [employer] Blade Repair Technician Relationship Specialty Start Date End Date Dayami Roe MD [address] [place] [phone] PCP - General Family Medicine 08/05/21 Wind T[employer] Blade Repair Technician Relationship Specialty Start Date End Date Dayami Roe MD [address] [place] [id number] PCP - General Family Medicine 08/05/21 Wind Turbine Blade Repair Technician Relationship Specialty Start Date End Date Dayami Roe MD [address] [place] [address] PCP - [facility] Medicare Advantage PCP 06/29/22 Dayami Roe MD [address] [place] [address] PCP - General Family Medicine 10/23/23 Tara To, title processorCourtesy Clerk 10/30/23 Wind Turbine Blade Repair Technician Relationship Specialty Start Date End Date Dayami Roe MD [address] [place] [id number] PCP - General Family Medicine 12/15/23 Wind Turbine Blade Repair Technician Relationship Specialty Start Date End Date Dayami Roe MD [address] [facility] [place] [address] PCP - General Family Medicine 12/15/23 Wind Turbine Blade Repair Technician Relationship Specialty Start Date End Date Dayami Roe MD [address] [facility] [place] [id number] PCP - General Family Medicine 12/15/23 Wind Turbine Blade Repair Technician Relationship Specialty Start Date End Date Dayami Roe MD [address] [facility] [place] [address] PCP - General Family Medicine 12/15/23 Wind Turbine Blade Repair Technician Relationship Specialty Start Date End Date Dayami Roe MD [address] [place] [address] PCP - General Family Medicine 12/15/23 Wind Turbine Blade Repair Technician Relationship Specialty Start Date End Date Dayami Roe MD [address] [facility] [place] [address] PCP - General Family Medicine 12/15/23 Wind Turbine Blade Repair Technician Relationship Specialty Start Date End Date Dayami Roe MD [address] [facility] [place] [address] PCP - General Family Medicine 12/15/23 Wind Turbine Blade Repair Technician Relationship Specialty Start Date End Date Dayami Roe MD [address] [facility] [place] [place] [address] PCP - General Family Medicine 12/15/23 Wind Turbine Blade Repair Technician Relationship Specialty Start Date End Date Dayami Roe MD [address] [facility] [place] [id number] PCP - General Family Medicine 12/15/23 Wind Turbine Blade Repair Technician Relationship Specialty Start Date End Date Dayami Roe MD [address] [facility] [place] [address] PCP - General Family Medicine 12/15/23 Wind Turbine Blade Repair Technician Relationship Specialty Start Date End Date Dayami Roe MD [address] [facility] [place] [place] [address] PCP - General Family Medicine 12/15/23 Wind Turbine Blade Repair Technician Relationship Specialty Start Date End Date Dayami Roe MD [address] [facility] [place] [place] [address] PCP - General Family Medicine 12/15/23 Wind Turbine Blade Repair Technician Relationship Specialty Start Date End Date Dayami Roe MD [address] [facility] [place] [address] PCP - General Family Medicine 12/15/23 Jocelin Beach RN Specialty It Quality Analyst Oncology 01/13/24 Aarti Bar DO [address] [place] [address] Hematology/Oncology 01/13/24 Wind Turbine Blade Repair Technician Relationship Specialty Start Date End Date Dayami Roe MD [address] [facility] [place] [place] [address] PCP - General Family Medicine 12/15/23 Jocelin Beach RN Specialty It Quality Analyst Oncology 01/13/24 Aarti Bar DO [address] [place] [address] Hematology/Oncology 01/13/24 Wind Turbine Blade Repair Technician Relationship Specialty Start Date End Date Dayami Roe MD [address] [place] [address] PCP - General Family Medicine 12/15/23 Jocelin Beach RN Specialty It Quality Analyst Oncology 01/13/24 Aarti Bar DO [address] [place] [address] Hematology/Oncology 01/13/24 Wind Turbine Blade Repair Technician Relationship Specialty Start Date End Date Dayami Roe MD [address] [facility] [place] [address] PCP - General Family Medicine 12/15/23 Jocelin Beach RN Specialty It Quality Analyst Oncology 01/13/24 Aarti Bar DO [address] [place] [address] Hematology/Oncology 01/13/24 Wind Turbine Blade Repair Technician Relationship Specialty Start Date End Date Dayami Roe MD [address] [place] [address] PCP - General Family Medicine 12/15/23 Jocelin Beach RN Specialty It Quality Analyst Oncology 01/13/24 Aarti Bar DO [address] [facility] [place] [address] Hematology/Oncology 01/13/24 Wind Turbine Blade Repair Technician Relationship Specialty Start Date End Date Dayami Roe MD [address] [place] [address] PCP - General Family Medicine 12/15/23 Jocelin Beach RN Specialty It Quality Analyst Oncology 01/13/24 Aarti Bar DO [address] [facility] [place] [address] Hematology/Oncology 01/13/24 Wind Turbine Blade Repair Technician Relationship Specialty Start Date End Date Dayami Roe MD [address] [facility] [place] [address] PCP - General Family Medicine 12/15/23 Jocelin Beach RN Specialty It Quality Analyst Oncology 01/13/24 Aarti Bar DO [address] [facility] [place] [address] Hematology/Oncology 01/13/24 Wind Turbine Blade Repair Technician Relationship Specialty Start Date End Date Dayami Roe MD [address] [facility] [place] [address] PCP - General Family Medicine 12/15/23 Jocelin Beach RN Specialty It Quality Analyst Oncology 01/13/24 Aarti Bar DO [address] [place] [address] Hematology/Oncology 01/13/24 Wind Turbine Blade Repair Technician Relationship Specialty Start Date End Date Dayami Roe MD [address] [facility] [place] [place] [address] PCP - General Family Medicine 12/15/23 Jocelin Beach RN Specialty It Quality Analyst Oncology 01/13/24 Aarti Bar DO [address] [place] [address] Hematology/Oncology 01/13/24 Wind Turbine Blade Repair Technician Relationship Specialty Start Date End Date Dayami Roe MD [address] [place] [address] PCP - General Family Medicine 12/15/23 Jocelin Beach RN Specialty It Quality Analyst Oncology 01/13/24 Aarti Bar DO [address] [place] [address] Hematology/Oncology 01/13/24 Wind Turbine Blade Repair Technician Relationship Specialty Start Date End Date Dayami Roe MD [address] [place] [address] PCP - General Family Medicine 12/15/23 Jocelin Beach RN Specialty It Quality Analyst Oncology 01/13/24 Aarti Bar DO [address] [place] [address] Hematology/Oncology 01/13/24 Wind Turbine Blade Repair Technician Relationship Specialty Start Date End Date Dayami Roe MD [address] [place] [address] PCP - General Family Medicine 12/15/23 Jocelin Beach RN Specialty It Quality Analyst Oncology 01/13/24 Aarti Bar DO [address] [place] [address] Hematology/Oncology 01/13/24 Wind Turbine Blade Repair Technician Relationship Specialty Start Date End Date Dayami Roe MD [address] [place] [address] PCP - General Family Medicine 12/15/23 Jocelin Beach RN Specialty It Quality Analyst Oncology 01/13/24 Aarti Bar DO [address] [place] [address] Hematology/Oncology 01/13/24 Wind Turbine Blade Repair Technician Relationship Specialty Start Date End Date Dayami Puri MD [address] [place] [address] PCP - General Family Medicine 03/08/24 Jocelin Beach RN Specialty It Quality Analyst Oncology 01/13/24 Aarti Bar DO [address] [place] [address] Hematology/Oncology 01/13/24 Wind Turbine Blade Repair Technician Relationship Specialty Start Date End Date Dayami Puri MD [address] [place] [address] PCP - General Family Medicine 03/08/24 Jocelin Beach RN Specialty It Quality Analyst Oncology 01/13/24 Aarti Bar DO [address] [place] [address] Hematology/Oncology 01/13/24 Wind Turbine Blade Repair Technician Relationship Specialty Start Date End Date Dayami Puri MD [address] [place] [address] PCP - General Family Medicine 03/08/24 Jocelin Beach RN Specialty It Quality Analyst Oncology 01/13/24 Aatri Bar DO [address] [place] [address] Hematology/Oncology 01/13/24 Prosper Narvaez [address] [place] [address] Pulmonary Disease 03/15/24 Wind Turbine Blade Repair Technician Relationship Specialty Start Date End Date Dayami Puri MD [address] [place] [address] PCP - General Family Medicine 03/08/24 Jocelin Beach RN Specialty It Quality Analyst Oncology 01/13/24 Aarti Bar DO [address] [place] [address] Hematology/Oncology 01/13/24 Prosper Narvaez [address] [place] [address] Pulmonary Disease 03/15/24 Wind Turbine Blade Repair Technician Relationship Specialty Start Date End Date Dayami Puri MD [address] [place] [address] PCP - General Family Medicine 03/08/24 Jocelin Beach RN Specialty It Quality Analyst Oncology 01/13/24 Aarti Bar DO [address] [place] [address] Hematology/Oncology 01/13/24 Prosper Narvaez [address] [place] [address] Pulmonary Disease 03/15/24 Wind Turbine Blade Repair Technician Relationship Specialty Start Date End Date Dayami Puri MD [address] [place] [address] PCP - General Family Medicine 03/08/24 Jocelin Beach RN Specialty It Quality Analyst Oncology 01/13/24 Aarti Bar DO [address] [place] [address] Hematology/Oncology 01/13/24 Prosper Narvaez [address] [facility] [address] Pulmonary Disease 03/15/24 Wind Turbine Blade Repair Technician Relationship Specialty Start Date End Date Dayami Puri MD [address] [place] [address] PCP - General Family Medicine 03/08/24 Jocelin Beach RN Specialty It Quality Analyst Oncology 01/13/24 Aarti Bar DO [address] [place] [address] Hematology/Oncology 01/13/24 Prosper Narvaez [address] [place] [address] Pulmonary Disease 03/15/24 Wind Turbine Blade Repair Technician Relationship Specialty Start Date End Date Dayami Puri MD [address] [place] [address] PCP - General Family Medicine 03/08/24 Jocelin Beach RN Specialty It Quality Analyst Oncology 01/13/24 Aarti Bar DO [address] [place] [address] Hematology/Oncology 01/13/24 Prosper Narvaez [address] [facility] [place] [place] [address] Pulmonary Disease 03/15/24 Wind Turbine Blade Repair Technician Relationship Specialty Start Date End Date Dayami oRe MD [address] [place] [address] PCP - General Family Medicine 12/15/23 03/07/24 Dayami Puri MD [address] [place] [address] PCP - General Family Medicine 03/08/24 Jocelin Beach RN Specialty It Quality Analyst Oncology 01/13/24 Aarti Bar DO [address] [place] [address] Hematology/Oncology 01/13/24 Prosper Narvaez [address] [place] [address] Pulmonary Disease 03/15/24 Wind Turbine Blade Repair Technician Relationship Specialty Start Date End Date Dayami Puri MD [address] [facility] [place] [address] PCP - General Family Medicine 03/08/24 Jocelin Beach RN Specialty It Quality Analyst Oncology 01/13/24 Aarti Bar DO [address] [place] [address] Hematology/Oncology 01/13/24 Prosper Narvaez [address] [place] [address] Pulmonary Disease 03/15/24 Wind Turbine Blade Repair Technician Relationship Specialty Start Date End Date Dayami Puri MD [address] [place] [address] PCP - General Family Medicine 03/08/24 Jocelin Beach RN Specialty It Quality Analyst Oncology 01/13/24 Aarti Bar DO [address] [place] [address] Hematology/Oncology 01/13/24 Prosper Narvaez [address] [place] [address] Pulmonary Disease 03/15/24 Wind Turbine Blade Repair Technician Relationship Specialty Start Date End Date Dayami Puri MD [address] [place] [address] PCP - General Family Medicine 03/08/24 Jocelin Beach RN Specialty It Quality Analyst Oncology 01/13/24 Aarti Bar DO [address] [place] [address] Hematology/Oncology 01/13/24 Prosper Narvaez [address] [place] [address] Pulmonary Disease 03/15/24 Wind Turbine Blade Repair Technician Relationship Specialty Start Date End Date Dayami Puri MD [address] [place] [address] PCP - General Family Medicine 03/08/24 Jocelin Beach RN Specialty It Quality Analyst Oncology 01/13/24 Aarti Bar DO [address] [place] [address] Hematology/Oncology 01/13/24 Prosper Narvaez [address] [place] [address] Pulmonary Disease 03/15/24 Wind Turbine Blade Repair Technician Relationship Specialty Start Date End Date Dayami Puri MD [address] [place] [address] PCP - General Family Medicine 03/08/24 Jocelin Beach RN Specialty It Quality Analyst Oncology 01/13/24 Aarti Bar DO [address] [place] [address] Hematology/Oncology 01/13/24 Prsoper Narvaez [address] [place] [address] Pulmonary Disease 03/15/24 Wind Turbine Blade Repair Technician Relationship Specialty Start Date End Date Dayami Puri MD [address] [place] [address] PCP - General Family Medicine 03/08/24 Jocelin Beach RN Specialty It Quality Analyst Oncology 01/13/24 Aarti Bar DO [address] [facility] [address] Hematology/Oncology 01/13/24 Prosper Narvaez [address] [place] [address] Pulmonary Disease 03/15/24 Wind Turbine Blade Repair Technician Relationship Specialty Start Date End Date Dayami Puri MD [address] [place] [address] PCP - General Family Medicine 03/08/24 Jocelin Beach RN Specialty It Quality Analyst Oncology 01/13/24 Aarti Bar DO [address] [place] [address] Hematology/Oncology 01/13/24 Prosper Narvaez [address] [facility] [place] [address] Pulmonary Disease 03/15/24 Wind Turbine Blade Repair Technician Relationship Specialty Start Date End Date Dayami Puri MD [address] [place] [address] PCP - General Family Medicine 03/08/24 Jocelin Beach RN Specialty It Quality Analyst Oncology 01/13/24 Aarti Bar DO [address] [place] [address] Hematology/Oncology 01/13/24 Prosper Narvaez [address] [place] [address] Pulmonary Disease 03/15/24 Wind Turbine Blade Repair Technician Relationship Specialty Start Date End Date Dayami Puri MD [address] [place] [address] PCP - General Family Medicine 03/08/24 Jocelin Beach RN Specialty It Quality Analyst Oncology 01/13/24 Aarti Bar DO [address] [place] [address] Hematology/Oncology 01/13/24 Prosper Narvaez [address] [address] Pulmonary Disease 03/15/24 Wind Turbine Blade Repair Technician Relationship Specialty Start Date End Date Dayami Puri MD [address] [place] [address] PCP - General Family Medicine 03/08/24 Jocelin Beach RN Specialty It Quality Analyst Oncology 01/13/24 Aarti Bar DO [address] [place] [address] Hematology/Oncology 01/13/24 Prosper Narvaez [address] [address] Pulmonary Disease 03/15/24 Wind Turbine Blade Repair Technician Relationship Specialty Start Date End Date Dayami Puri MD [address] [place] [address] PCP - General Family Medicine 03/08/24 Jocelin Beach RN Specialty It Quality Analyst Oncology 01/13/24 Aarti Bar DO [address] [place] [address] Hematology/Oncology 01/13/24 Prosper Narvaez [address] [place] [address] Pulmonary Disease 03/15/24 Wind Turbine Blade Repair Technician Relationship Specialty Start Date End Date Dayami Puri MD [address] [place] [address] PCP - General Family Medicine 03/08/24 Jocelin Beach RN Specialty It Quality Analyst Oncology 01/13/24 Aarti Bar DO [address] [place] [address] Hematology/Oncology 01/13/24 Prosper Narvaez [address] [place] [address] Pulmonary Disease 03/15/24 Wind Turbine Blade Repair Technician Relationship Specialty Start Date End Date Dayami Puri MD [address] [place] [address] PCP - General Family Medicine 03/08/24 Jocelin Beach RN Specialty It Quality Analyst Oncology 01/13/24 Aarti Bar DO [address] [place] [address] Hematology/Oncology 01/13/24 Prosper Narvaez [address] [place] [address] Pulmonary Disease 03/15/24 Wind Turbine Blade Repair Technician Relationship Specialty Start Date End Date Dayami Puri MD [address] [place] [address] PCP - General Family Medicine 03/08/24 Jocelin Beach RN Specialty It Quality Analyst Oncology 01/13/24 Aarti Bar DO [address] [place] [address] Hematology/Oncology 01/13/24 Prosper Narvaez [address] [facility] [address] Pulmonary Disease 03/15/24 Wind Turbine Blade Repair Technician Relationship Specialty Start Date End Date Dayami Puri MD [address] [place] [address] PCP - General Family Medicine 03/08/24 Jocelin Beach RN Specialty It Quality Analyst Oncology 01/13/24 Aarti Bar DO [address] [place] [address] Hematology/Oncology 01/13/24 Prosper Narvaez [address] [facility] [place] [address] Pulmonary Disease 03/15/24 Wind Turbine Blade Repair Technician Relationship Specialty Start Date End Date Dayami Roe MD [address] [place] [address] PCP - [facility] Medicare Advantage PCP 06/29/22 Dayami Roe MD [address] [place] [address] PCP - General Family Medicine 10/23/23 Tara To, title processorCourtesy Clerk 10/30/23 Wind Turbine Blade Repair Technician Relationship Specialty Start Date End Date Dayami Puri MD [address] [place] [address] PCP - General Family Medicine 03/08/24 Jocelin Beach, ALESSANDRA Specialty It Quality Analyst Oncology 01/13/24 Aarti Bar DO [address] [place], [place] [address] Hematology/Oncology 01/13/24 Prosper Narvaez [address] [facility] [address] Pulmonary Disease 03/15/24 PodlogarMady APRN.CNP [address] [place] [address] Hoop Punch And Coiler Operator Helper Family Medicine 06/04/24 Wind Turbine Blade Repair Technician Relationship Specialty Start Date End Date Dayami Puri MD [address] [place] [address] PCP - General Family Medicine 03/08/24 Jocelin Beach RN Specialty It Quality Analyst Oncology 01/13/24 Aarti Bar DO [address] [place], [place] [address] Hematology/Oncology 01/13/24 Prosper Narvaez [address] [place] [address] Pulmonary Disease 03/15/24 Podlogar, Mady, MEDICAL REPRESENTATIVE.OPERATIONS PROGRAM MANAGER [address] [place] [address] [facility] 06/04/24 Wind Turbine Blade Repair Technician Relationship Specialty Start Date End Date Dayami Puri MD [address] [place] [address] PCP - General Family Medicine 03/08/24 Jocelin Beach RN Specialty It Quality Analyst Oncology 01/13/24 Aarti Bar DO [address] [place] [address] Hematology/Oncology 01/13/24 Prosper Narvaez [address] [facility] [address] Pulmonary Disease 03/15/24 Podlogar, Mady, MEDICAL REPRESENTATIVE.OPERATIONS PROGRAM MANAGER [address] [place] [address] [facility] 06/04/24 Wind Turbine Blade Repair Technician Relationship Specialty Start Date End Date Dayami Puri MD [address] [place] [address] PCP - General Family Medicine 03/08/24 Jocelin Beach RN Specialty It Quality Analyst Oncology 01/13/24 Aarti Bar DO [address] [place] [address] Hematology/Oncology 01/13/24 Prosper Narvaez [address] [place] [address] Pulmonary Disease 03/15/24 Podlogar, HODA Earl.OPERATIONS PROGRAM MANAGER [address] [place] [address] Hoop Punch And Coiler Operator Helper [facility] 06/04/24 Wind Turbine Blade Repair Technician Relationship Specialty Start Date End Date Dayami Puri MD [address] [place] [address] PCP - General Family Medicine 03/08/24 Jocelin Beach RN Specialty It Quality Analyst Oncology 01/13/24 Aarti Bar DO [address] [place] [address] Hematology/Oncology 01/13/24 Prosper Narvaez [address] [facility] [address] Pulmonary Disease 03/15/24 Podlogar, HODA Earl.OPERATIONS PROGRAM MANAGER [address] [place] [address] [facility] 06/04/24 Wind Turbine Blade Repair Technician Relationship Specialty Start Date End Date Dayami Puri MD [address] [place] [address] PCP - General Family Medicine 03/08/24 Jocelin Beach RN Specialty It Quality Analyst Oncology 01/13/24 Aarti Bar DO [address] [place] [address] Hematology/Oncology 01/13/24 Prosper Narvaez [address] [place] [address] Pulmonary Disease 03/15/24 PodlogarMady APRN.OPERATIONS PROGRAM MANAGER [address] [place] [address] Hoop Punch And Coiler Operator Helper [facility] 06/04/24 Wind Turbine Blade Repair Technician Relationship Specialty Start Date End Date Dayami Puri MD [address] [place] [address] PCP - General Family Medicine 03/08/24 Jocelin Beach RN Specialty It Quality Analyst Oncology 01/13/24 Aarti Bar DO [address] [place] [address] Hematology/Oncology 01/13/24 Prosper Narvaez [address] [facility] [address] Pulmonary Disease 03/15/24 PodlogarMady APRN.OPERATIONS PROGRAM MANAGER [address] [place] [address] [facility] 06/04/24 Wind Turbine Blade Repair Technician Relationship Specialty Start Date End Date Dayami Puri MD [address] [place] [address] PCP - General Family Medicine 03/08/24 Jocelin Beach RN Specialty It Quality Analyst Oncology 01/13/24 Aarti Bar DO [address] [place] [address] Hematology/Oncology 01/13/24 Prosper Narvaez [address] [place] [address] Pulmonary Disease 03/15/24 PodlogarMady APRN.OPERATIONS PROGRAM MANAGER [address] [place] [address] Hoop Punch And Coiler Operator Helper [facility] 06/04/24 Wind Turbine Blade Repair Technician Relationship Specialty Start Date End Date Dayami Puri MD [address] [place] [address] PCP - General Family Medicine 03/08/24 Jocelin Beach RN Specialty It Quality Analyst Oncology 01/13/24 Aarti Bar DO [address] [place] [address] Hematology/Oncology 01/13/24 Prosper Narvaez [address] [facility] [place] [address] Pulmonary Disease 03/15/24 PodlogarMady APRN.OPERATIONS PROGRAM MANAGER [address] [place] [address] [facility] Punch And Coiler [facility] 06/04/24 Wind Turbine Blade Repair Technician Relationship Specialty Start Date End Date Dayami Puri MD [address] [place] [address] PCP - General Family Medicine 03/08/24 Jocelin Beach RN Specialty It Quality Analyst Oncology 01/13/24 Aarti Bar DO [address] [place] [address] Hematology/Oncology 01/13/24 Prosper Narvaez [address] [place] [address] Pulmonary Disease 03/15/24 PodlogarMady APRN.OPERATIONS PROGRAM MANAGER [address] [place] [address] [employer] Punch [employer] Coiler Operator [facility] 06/04/24 Wind Turbine Blade Repair Technician Relationship Specialty Start Date End Date Dayami Puri MD [address] [place] [address] PCP - General Family Medicine 03/08/24 Jocelin Beach RN Specialty It Quality Analyst Oncology 01/13/24 Aarti Bar DO [address] [place], [place] [address] [phone] Hematology/Oncology 01/13/24 Prosper Narvaez [address] [facility] [address] Pulmonary Disease 03/15/24 PodlogarMady APRN.OPERATIONS PROGRAM MANAGER [address] [place] [address] [facility] 06/04/24 Wind Turbine Blade Repair Technician Relationship Specialty Start Date End Date Dayami Puri MD [address] [place] [address] PCP - General Family Medicine 03/08/24 Jocelin Beach RN Specialty It Quality Analyst Oncology 01/13/24 Aarti Bar DO [address] [place], [place] [address] [phone] Hematology/Oncology 01/13/24 Prosper Narvaez [address] [place] [address] Pulmonary Disease 03/15/24 PodlogarMady APRN.OPERATIONS PROGRAM MANAGER [address] [place] [address] [employer] Punch And Coiler Operator [facility] 06/04/24 Wind Turbine Blade Repair Technician Relationship Specialty Start Date End Date Dayami Puri MD [address] [place] [address] PCP - General Family Medicine 03/08/24 Jocelin Beach RN Specialty It Quality Analyst Oncology 01/13/24 Aarti Bar DO [address] [place], [place] [address] [phone] Hematology/Oncology 01/13/24 Prosper Narvaez [address] [facility] [address] Pulmonary Disease 03/15/24 Podlogar, HODA Earl.OPERATIONS PROGRAM MANAGER [address] [place] [address] [facility] 06/04/24 Wind Turbine Blade Repair Technician Relationship Specialty Start Date End Date Dayami Puri MD [address] [place] [address] PCP - General Family Medicine 03/08/24 Jocelin Beach RN Specialty It Quality Analyst Oncology 01/13/24 Aarti Bar DO [address] [place] [address] Hematology/Oncology 01/13/24 Prosper Narvaez [address] [facility] [place] [address] Pulmonary Disease 03/15/24 Podlogar, HODA Earl.OPERATIONS PROGRAM MANAGER [address] [place], [place] [address] [phone] Hoop Punch And Coiler Operator Helper [facility] 06/04/24 Wind Turbine Blade Repair Technician Relationship Specialty Start Date End Date Dayami Puri MD [address] [place] [address] PCP - General Family Medicine 03/08/24 Jocelin Beach RN Specialty It Quality Analyst Oncology 01/13/24 Aarti Bar DO [address] [place] [address] Hematology/Oncology 01/13/24 Prosper Narvaez 391 [facility] [address] Pulmonary Disease 03/15/24 Podlogar, Mady, MEDICAL REPRESENTATIVE.OPERATIONS PROGRAM MANAGER [address] [place] [address] [facility] 06/04/24 Wind Turbine Blade Repair Technician Relationship Specialty Start Date End Date Dayami Puri MD [address] [place] [address] PCP - General Family Medicine 03/08/24 Jocelin Beach RN Specialty It Quality Analyst Oncology 01/13/24 Aarti Bar DO [address] [facility] [place] [address] Hematology/Oncology 01/13/24 Prosper Narvaez [address] [facility] [place] [address] Pulmonary Disease 03/15/24 Podlogar, HODA Earl.OPERATIONS PROGRAM MANAGER [address] [place], [place] [address]71 Hoop Punch And Coiler [facility] Wind Turbine Blade Repair Technician Relationship Specialty Start Date End Date Dayami Puri MD [address] [place] [address] PCP - General Family Medicine 03/08/24 Jocelin Beach RN Specialty It Quality Analyst Oncology 01/13/24 Aarti Bar DO [address] [place] [address] Hematology/Oncology 01/13/24 Prosper Narvaez 391 [facility] [address] Pulmonary Disease 03/15/24 Podlogar, HODA Earl.OPERATIONS PROGRAM MANAGER [address] [place] [address] [facility] 06/04/24 Wind Turbine Blade Repair Technician Relationship Specialty Start Date End Date Dayami Puri MD [address] [place] [address] PCP - General Family Medicine 03/08/24 Jocelin Beach RN Specialty It Quality Analyst Oncology 01/13/24 Aarti Bar DO [address] [place] [address] Hematology/Oncology 01/13/24 Prosper Narvaez [address] [facility] [place] [address] Pulmonary Disease 03/15/24 Podlogar, Mady, MEDICAL REPRESENTATIVE.OPERATIONS PROGRAM MANAGER [address] [place], [place] [address] Hoop Punch And Coiler Operator Helper [facility] 06/04/24 Wind Turbine Blade Repair Technician Relationship Specialty Start Date End Date Dayami Puri MD [address] [place], [place] 403[address] PCP - General Family Medicine 03/08/24 Jocelin Beach RN Specialty It Quality Analyst Oncology 01/13/24 Aarti Bar DO [address] [place] [address] Hematology/Oncology 01/13/24 Prosper Narvaez 391 [facility] WO[place] [address] Pulmonary Disease 03/15/24 Podlogar, Mady, MEDICAL REPRESENTATIVE.OPERATIONS PROGRAM MANAGER [address] [place] [address] [facility] 06/04/24 Wind Turbine Blade Repair Technician Relationship Specialty Start Date End Date Dayami Puri MD [address] [place], [place] [id number] PCP - General Family Medicine 03/08/24 Jocelin Beach RN Specialty It Quality Analyst Oncology 01/13/24 Aarti Bar DO [address] [place] [address] Hematology/Oncology 01/13/24 Prosper Narvaez 391 [facility] [place] [address] Pulmonary Disease 03/15/24 Podlogar, HODA Earl.OPERATIONS PROGRAM MANAGER [address] [place] [address] Hoop Punch And Coiler Operator Helper Family [facility] 06/04/24 Wind Turbine Blade Repair Technician Relationship Specialty Start Date End Date Dayami Puri MD [address] [place] [address] PCP - General Family Medicine 03/08/24 Jocelin Beach RN Specialty It Quality Analyst Oncology 01/13/24 Aarti Bar DO [address] [place] [address] Hematology/Oncology 01/13/24 Prosper Narvaez [address] [facility] [place] [address] Pulmonary Disease 03/15/24 Podlogar, HODA Earl.OPERATIONS PROGRAM MANAGER [address] [place] [address] Hoop Punch And Coiler Operator Helper Family [facility] 06/04/24 Wind Turbine Blade Repair Technician Relationship Specialty Start Date End Date Dayami Puri MD [address] [place] [address] PCP - General Family Medicine 03/08/24 Jocelin Beach RN Specialty It Quality Analyst Oncology 01/13/24 Aarti Bar DO [address] [place] [address] Hematology/Oncology 01/13/24 Prosper Narvaez [address] [facility] [place] [address] Pulmonary Disease 03/15/24 Podlogar, Mady, MEDICAL REPRESENTATIVE.OPERATIONS PROGRAM MANAGER [address] [place] [address] Hoop Punch And Coiler Operator Helper Family [facility] 06/04/24 Wind Turbine Blade Repair Technician Relationship Specialty Start Date End Date Dayami Puri MD [address] [place] [address] PCP - General Family Medicine 03/08/24 Jocelin Beach RN Specialty It Quality Analyst Oncology 01/13/24 Aarti Bar DO [address] [place] [address] Hematology/Oncology 01/13/24 Prosper Narvaez [address] [facility] [place] [address] Pulmonary Disease 03/15/24 Podlogar, Mady, MEDICAL REPRESENTATIVE.OPERATIONS PROGRAM MANAGER [address] [place] [address] Hoop Punch And Coiler Operator Helper Family [facility] 06/04/24 Wind Turbine Blade Repair Technician Relationship Specialty Start Date End Date Dayami Puri MD [address] [place] [address] PCP - General Family Medicine 03/08/24 Jocelin Beach RN Specialty It Quality Analyst Oncology 01/13/24 Aarti Bar DO [address] [place] [address] Hematology/Oncology 01/13/24 Brice Prosper Joey [address] [place] [address] Pulmonary Disease 03/15/24 PodlogarMady APRN.OPERATIONS PROGRAM MANAGER [address] [place] [address] Hoop Punch And Coiler Operator Helper Family [facility] 06/04/24 Wind Turbine Blade Repair Technician Relationship Specialty Start Date End Date Dayami Puri MD [address] [place] [address] PCP - General Family Medicine 03/08/24 Jocelin Beach RN Specialty It Quality Analyst Oncology 01/13/24 Aarti Bar DO [address] [place] [address] Hematology/Oncology 01/13/24 Prosper Narvaez [address] [facility] [place] [address] Pulmonary Disease 03/15/24 PodlogarMady APRN.OPERATIONS PROGRAM MANAGER [address] [place] [address] Hoop Punch And Coiler Operator Helper Family Medicine 06/04/24 Brunilda Vergara APRN.OPERATIONS PROGRAM MANAGER [address] [place] [address] Hoop Punch And Coiler Operator Helper Family Medicine 09/09/24 Wind Turbine Blade Repair Technician Relationship Specialty Start Date End Date Dayami Puri MD [address] [place] [address] PCP - General Family Medicine 03/08/24 Jocelin Beach, RN Specialty It Quality Analyst Oncology 01/13/24 Aarti Bar DO [address] [place], [place] 98[address] [phone] Hematology/Oncology 01/13/24 Prosper Narvaez [address] [facility] [address] Pulmonary Disease 03/15/24 PodlogarMady APRN.OPERATIONS PROGRAM MANAGER [address] [place] [address] Hoop Punch And Coiler Operator Helper Family [facility] 06/04/24 Brunilda Vergara APRN.OPERATIONS PROGRAM MANAGER [address] [place], [place] [address] [phone] Hoop Punch And Coiler Operator Helper Family [facility] 09/09/24 Amparo Razo LISW [address] [place] [address] Nurse Instructor Hematology/Oncology 09/14/24 Wind Turbine Blade Repair Technician Relationship Specialty Start Date End Date Dayami Puri MD [address] [place] [address] PCP - General Family Medicine 03/08/24 Jocelin Beach, RN Specialty It Quality Analyst Oncology 01/13/24 Aarti Bar DO [address] [place] [address] Hematology/Oncology 01/13/24 Prosper Narvaez 391 [facility] [address] Pulmonary Disease 03/15/24 Podlogar, HODA Earl.OPERATIONS PROGRAM MANAGER [address] [facility] [address] Hoop Punch And Coiler Operator Helper Family Medicine 06/04/24 Brunilda Vergara APRN.OPERATIONS PROGRAM MANAGER [address] [facility] [place] [address] Hoop Punch And Coiler Operator Helper Family Medicine 09/09/24 Amparo Razo LISW [address] [place] [address] Nurse Instructor Hematology/Oncology 09/14/24 Wind Turbine Blade Repair Technician Relationship Specialty Start Date End Date Dayami Puri MD [address] [facility] [address] PCP - General Family Medicine 03/08/24 Jocelin Beach RN Specialty It Quality Analyst Oncology 01/13/24 Aarti Bar DO [address] [facility] [address] Hematology/Oncology 01/13/24 Prosper Narvaez [address] [place] [address] Pulmonary Disease 03/15/24 Podlogar, HODA Earl.OPERATIONS PROGRAM MANAGER [address] [facility] [address] Hoop Punch And Coiler Operator Helper Family Medicine 06/04/24 Brunilda Vergara APRN.OPERATIONS PROGRAM MANAGER [address] [facility] [place] [address] Hoop Punch And Coiler Operator Helper Family Medicine 09/09/24 Amparo Razo, DIRECTOR [place]INA [address] [facility] [address] Nurse Instructor Hematology/Oncology 09/14/24 Wind Turbine Blade Repair Technician Relationship Specialty Start Date End Date Dayami Puri MD [address] [place] [address] PCP - General Family Medicine 03/08/24 Jocelin Beach, RN Specialty It Quality Analyst Oncology 01/13/24 Aarti Bar DO [address] [place] [address] Hematology/Oncology 01/13/24 Prosper Narvaez [address] [place] [address] Pulmonary Disease 03/15/24 PodlogarMady APRN.OPERATIONS PROGRAM MANAGER [address] [place] [address] Hoop Punch And Coiler Operator Helper Family Medicine 06/04/24 Brunilda Vergara APRN.OPERATIONS PROGRAM MANAGER [address] [place] [address] Hoop Punch And Coiler Operator Helper Family [facility] 09/09/24 Amparo Razo LISW [address] [place] [address] Nurse Instructor Hematology/Oncology 09/14/24 Wind Turbine Blade Repair Technician Relationship Specialty Start Date End Date Dayami Puri MD [address] [place] [address] PCP - General Family Medicine 03/08/24 Jocelin Beach, RN Specialty It Quality Analyst Oncology 01/13/24 Aarti Bar DO [address] [place] [address] Hematology/Oncology 01/13/24 Prosper Narvaez [address] [place] [address] Pulmonary Disease 03/15/24 Podlogar, HODA Earl.OPERATIONS PROGRAM MANAGER [address] [place] [address] Hoop Punch And Coiler Operator Helper Family Medicine 06/04/24 Brunilda Vergara APRN.OPERATIONS PROGRAM MANAGER [address] [place] [address] Hoop Punch And Coiler Operator Helper Family [facility] 09/09/24 Amparo Razo LISW [address] [place] [address] Nurse Instructor Hematology/Oncology 09/14/24 Wind Turbine Blade Repair Technician Relationship Specialty Start Date End Date Dayami Puri MD [address] [place] [address] PCP - General Family Medicine 03/08/24 Jocelin Beach, ALESSANDRA Specialty It Quality Analyst Oncology 01/13/24 Aarti Bar DO [address] [place] [address] Hematology/Oncology 01/13/24 Prosper Narvaez [address] [place] [address] Pulmonary Disease 03/15/24 Podlogar, HODA Earl.OPERATIONS PROGRAM MANAGER [address] [place] [address] [facility] Family [facility] 06/04/24 Amparo Razo LISW [address] [place] [address] Nurse Instructor Hematology/Oncology 09/14/24 Brunilda Vergara APRN.OPERATIONS PROGRAM MANAGER [address] [place] [address] Hoop Punch And Coiler Operator Helper Family Medicine 09/19/24 Wind Turbine Blade Repair Technician Relationship Specialty Start Date End Date Dayami Puri MD [address] [place] [address] PCP - General Family Medicine 03/08/24 Jocelin Beach RN Specialty It Quality Analyst Oncology 01/13/24 Aarti Bar DO [address] [place], [place] [address] Hematology/Oncology 01/13/24 Prosper Narvaez [address] [place], [place] [address]ANTHONY WOJCIECHChuy [place] [address] Pulmonary Disease 03/15/24 MeeralogMady quarles MEDICAL REPRESENTATIVE.OPERATIONS PROGRAM MANAGER [address] [place] [address] Hoop Punch And Coiler Operator Helper Family Medicine 06/04/24 Amparo Razo LISW [address] [place] [address] Nurse Instructor Hematology/Oncology 09/14/24 Brunilda Vergara APRN.OPERATIONS PROGRAM MANAGER [address] [place] [address] Hoop Punch And Coiler Operator Helper Family [facility] 09/19/24 Wind Turbine Blade Repair Technician Relationship Specialty Start Date End Date Dayami Puri MD [address] [place], [place] [address] PCP - General Family Medicine 03/08/24 Jocelin Beach RN Specialty It Quality Analyst Oncology 01/13/24 Aarti Bar DO [address] [place] [address] Hematology/Oncology 01/13/24 Prosper Narvaez [address] [place] [address] Pulmonary Disease 03/15/24 Podlogar, HODA Earl.OPERATIONS PROGRAM MANAGER [address] [facility] [address] Hoop Punch And Coiler Operator [facility] 06/04/24 Amparo Razo, JON [address] [place] [address] Nurse Instructor Hematology/Oncology 09/14/24 Brunilda Vergara APRN.OPERATIONS PROGRAM MANAGER [address] [place] [address] [facility] 09/19/24 Wind Turbine Blade Repair Technician Relationship Specialty Start Date End Date Dayami Puri MD [address] [facility] [address] PCP - General Family Medicine 03/08/24 Jocelin Beach RN Specialty It Quality Analyst Oncology 01/13/24 Aarti Bar DO [address] [place] [address] Hematology/Oncology 01/13/24 Prosper Narvaez [address] [place] [address] Pulmonary Disease 03/15/24 Podlogar, HODA Earl.OPERATIONS PROGRAM MANAGER [address] [place] [address] [facility] 06/04/24 Amparo Razo, DIRECTOR CHINA [address] [place] [address] Nurse Instructor Hematology/Oncology 09/14/24 Brunilda Vergara APRN.OPERATIONS PROGRAM MANAGER [address] [place] [address] Hoop Punch And Coiler Operator Helper Family Medicine 09/19/24 Wind Turbine Blade Repair Technician Relationship Specialty Start Date End Date Dayami Puri MD [address] [place] [address] PCP - General Family Medicine 03/08/24 Jocelin Beach, ALESSANDRA Specialty It Quality Analyst Oncology 01/13/24 Aarti Bar DO [address] [place] [address] Hematology/Oncology 01/13/24 Prosper Narvaez [address] [place] [address] [place] [address] Pulmonary Disease 03/15/24 PodlogarMady APRN.OPERATIONS PROGRAM MANAGER [address] [place] [address] Hoop Punch And Coiler Operator Helper Family [facility] 06/04/24 Amparo Razo LISW [address] [place] [address] Nurse Instructor Hematology/Oncology 09/14/24 Brunilda Vergara, MEDICAL REPRESENTATIVE.OPERATIONS PROGRAM MANAGER [address] [place] [address] Hoop Punch And Coiler Operator Helper Family Medicine 09/19/24 Wind Turbine Blade Repair Technician Relationship Specialty Start Date End Date Dayami Puri MD [address] [place] [address] PCP - General Family Medicine 03/08/24 Jocelin Beach RN Specialty It Quality Analyst Oncology 01/13/24 Aarti Bar DO [address] [place], [place] 8444[address] [phone] Hematology/Oncology 01/13/24 Prosper Narvaez [address] [place] [address] Pulmonary Disease 03/15/24 Podlogar, Mady, MEDICAL REPRESENTATIVE.OPERATIONS PROGRAM MANAGER [address] [place] [address] Hoop Punch And Coiler Operator Helper Family [facility] 06/04/24 Amparo Razo LISW [address] [place] [address] Nurse Instructor Hematology/Oncology 09/14/24 Brunilda Vergara APRN.OPERATIONS PROGRAM MANAGER [address] [place] [address] [facility] 09/19/24 Wind Turbine Blade Repair Technician Relationship Specialty Start Date End Date Dayami Puri MD [address] [place] [address] PCP - General Family Medicine 03/08/24 Jocelin Beach, RN Specialty It Quality Analyst Oncology 01/13/24 Aarti Bar DO [address] [place] [address] Hematology/Oncology 01/13/24 Prosper Narvaez [address] [place] [address] Pulmonary Disease 03/15/24 Podlogar, Mady, MEDICAL REPRESENTATIVE.OPERATIONS PROGRAM MANAGER [address] [place] [address] Hoop Punch And Coiler Operator Helper Family Medicine 06/04/24 Amparo Razo, DIRECTOR CHINA [address] [place] [address] Nurse Instructor Hematology/Oncology 09/14/24 Brunilda Vergara APRN.OPERATIONS PROGRAM MANAGER [address] [facility] [place] [address] [facility] Family [facility] 09/19/24 Wind Turbine Blade Repair Technician Relationship Specialty Start Date End Date Dayami Puri MD [address] [facility] [address] PCP - General Family Medicine 03/08/24 Jocelin Beach RN Specialty It Quality Analyst Oncology 01/13/24 Aarti Bar DO [address] [place] [address] Hematology/Oncology 01/13/24 Propser Narvaez [address] [place] [phone] Pulmonary Disease 03/15/24 PodlogarMady APRN.OPERATIONS PROGRAM MANAGER [address] [facility] [address] Hoop Punch And Coiler Operator Helper Family Medicine 06/04/24 Amparo Razo, JON [address] [facility] [address] Nurse Instructor Hematology/Oncology 09/14/24 Brunilda Vergara APRN.OPERATIONS PROGRAM MANAGER [address] [place] [address] [facility] Family Medicine 09/19/24 Wind Turbine Blade Repair Technician Relationship Specialty Start Date End Date Dayami Puri MD [address] [place] [address] PCP - General Family Medicine 03/08/24 Jocelin Beach RN Specialty It Quality Analyst Oncology 01/13/24 Aarti Bar DO [address] [place], [place] [address] [phone] Hematology/Oncology 01/13/24 Prosper Narvaez [address] [facility] [place] [address] Pulmonary Disease 03/15/24 PodlogarMady APRN.OPERATIONS PROGRAM MANAGER [address] [place] [address] Hoop Punch And Coiler Operator Helper Family [facility] 06/04/24 Amparo Razo LISW [address] [place] [address] Nurse Instructor Hematology/Oncology 09/14/24 Brunilda Vergara APRN.OPERATIONS PROGRAM MANAGER [address] [place], [place] [address] [phone] [facility] 09/19/24 Wind Turbine Blade Repair Technician Relationship Specialty Start Date End Date Dayami Puri MD [address] [place] [address] PCP - General Family Medicine 03/08/24 Jocelin Beach RN Specialty It Quality Analyst Oncology 01/13/24 Aarti Bar DO [address] [place] [address] Hematology/Oncology 01/13/24 Prosper Narvaez [address] [place] [address] Pulmonary Disease 03/15/24 Podlogar, HODA Earl.OPERATIONS PROGRAM MANAGER [address] [facility] [address] Hoop Punch And Coiler Operator Helper Family Medicine 06/04/24 DongAmparo andrade, DIRECTOR CHINA [address] [place] [address] Nurse Instructor Hematology/Oncology 09/14/24 Brunilda Vergara APRN.OPERATIONS PROGRAM MANAGER [address] [facility] [place] [address] [facility] 09/19/24 Wind Turbine Blade Repair Technician Relationship Specialty Start Date End Date Dayami Puri MD [address] [facility] [address] PCP - General Family Medicine 03/08/24 Jocelin Beach RN Specialty It Quality Analyst Oncology 01/13/24 Aarti Bar DO [address] [place] [address] Hematology/Oncology 01/13/24 Prosper Narvaez [address] [place] [phone] Pulmonary Disease 03/15/24 Podlogar, HODA Earl.OPERATIONS PROGRAM MANAGER [address] [facility] [address] Hoop Punch And Coiler Operator Helper Family Medicine 06/04/24 Amparo Razo, DIRECTOR CHINA [address] [facility] [address] Nurse Instructor Hematology/Oncology 09/14/24 Brunilda Vergara APRN.OPERATIONS PROGRAM MANAGER [address] [facility] [place] [address] [facility] Family Medicine 09/19/24 Wind Turbine Blade Repair Technician Relationship Specialty Start Date End Date Dayami Puri MD [address] [place] [address] PCP - General Family Medicine 03/08/24 Jocelin Beach RN Specialty It Quality Analyst Oncology 01/13/24 Aarti Bar DO [address] [place] [address] Hematology/Oncology 01/13/24 Prosper Narvaez [address] [facility] [address] Pulmonary Disease 03/15/24 PodlogarMady APRN.OPERATIONS PROGRAM MANAGER [address] [place] [address] Hoop Punch And Coiler Operator Helper Family Medicine 06/04/24 Amparo Razo LISW [address] [place] [address] Nurse Instructor Hematology/Oncology 09/14/24 Brunilda Vergara, HODA.OPERATIONS PROGRAM MANAGER [address] [place] [address] Hoop Punch And Coiler Operator Helper Family [facility] 09/19/24 Wind Turbine Blade Repair Technician Relationship Specialty Start Date End Date Dayami Puri MD [address] [place] [address] PCP - General Family Medicine 03/08/24 Jocelin Beach RN Specialty It Quality Analyst Oncology 01/13/24 Aarti Bar DO [address] [place] [address] Hematology/Oncology 01/13/24 Prosper Narvaez [address] [facility] [place] [address] Pulmonary Disease 03/15/24 Podlogar, HIRAM EarlN.OPERATIONS PROGRAM MANAGER [address] [facility] [address] Hoop Punch And Coiler Operator Helper Family Medicine 06/04/24 Amparo Razo, DIRECTOR CHINA [address] [place] [address] Nurse Instructor Hematology/Oncology 09/14/24 Brunilda Vergara APRN.OPERATIONS PROGRAM MANAGER [address] [facility] [place] [address] [facility] 09/19/24 Wind Turbine Blade Repair Technician Relationship Specialty Start Date End Date Dayami Puri MD [address] [facility] [address] PCP - General Family Medicine 03/08/24 Jocelin Beach RN Specialty It Quality Analyst Oncology 01/13/24 Aarti Bar DO [address] [facility] [place] [address] Hematology/Oncology 01/13/24 Prosper Narvaez [address] [place] [address] Pulmonary Disease 03/15/24 Podlogar, Mady, MEDICAL REPRESENTATIVE.OPERATIONS PROGRAM MANAGER [address] [facility] [address] [facility] Family [facility] 06/04/24 Amparo Razo, DIRECTOR [place]INA [address] [place] [address] Nurse Instructor Hematology/Oncology 09/14/24 Brunilda Vergara APRN.OPERATIONS PROGRAM MANAGER [address] [facility] [place] [address] Hoop Punch And Coiler Operator Helper Family Medicine 09/19/24 Wind Turbine Blade Repair Technician Relationship Specialty Start Date End Date Dayami Puri MD [address] [place] [address] PCP - General Family Medicine 03/08/24 Jocelin Beach RN Specialty It Quality Analyst Oncology 01/13/24 Aarti Bar DO [address] [place] [address] Hematology/Oncology 01/13/24 Prosper Narvaez [address] [place], [place] [address]ANTHONY [place] [address] Pulmonary Disease 03/15/24 PodlogarMady APRN.OPERATIONS PROGRAM MANAGER [address] [place] [address] Hoop Punch And Coiler Operator Helper Family [facility] 06/04/24 Amparo Razo LISW [address] [place] [address] Nurse Instructor Hematology/Oncology 09/14/24 Brunilda Vergara APRN.OPERATIONS PROGRAM MANAGER [address] [place] [address] [facility] 09/19/24 Wind Turbine Blade Repair Technician Relationship Specialty Start Date End Date Dayami Puri MD [address] [place] [address] PCP - General Family Medicine 03/08/24 Jocelin Beach RN Specialty It Quality Analyst Oncology 01/13/24 Aarti Bar DO [address] [place] [address] Hematology/Oncology 01/13/24 Brice Prosper Cook [address] [place] [address] Pulmonary Disease 03/15/24 Podlogar, HODA Earl.OPERATIONS PROGRAM MANAGER [address] [place] [place] [address] Hoop Punch And Coiler Operator Helper Family Medicine 06/04/24 Amparo Razo LISW [address] [place] [address] Nurse Instructor Hematology/Oncology 09/14/24 Wind Turbine Blade Repair Technician Relationship Specialty Start Date End Date Dayami Puri MD [address] [facility] [place] [address] PCP - General Family Medicine 03/08/24 Jocelin Beach RN Specialty It Quality Analyst Oncology 01/13/24 Aarti Bar DO [address] [place] [address] Hematology/Oncology 01/13/24 Brice Prosper Cook [address] [place] [address] Pulmonary Disease 03/15/24 Podlogar, HODA Earl.OPERATIONS PROGRAM MANAGER [address] [facility] [place] [address] Hoop Punch And Coiler Operator Helper Family Medicine 06/04/24 Amparo Razo LISW [address] [place] [address] Nurse Instructor Hematology/Oncology 09/14/24 Wind Turbine Blade Repair Technician Relationship Specialty Start Date End Date Dayami Puri MD [address] [facility] [place] [address] PCP - General Family Medicine 03/08/24 Jocelin Beach RN Specialty It Quality Analyst Oncology 01/13/24 Aarti Bar DO [address] [place], [place] [address] Hematology/Oncology 01/13/24 Prosper Narvaez [address] [place] [address] Pulmonary Disease 03/15/24 PodlogarMady APRN.OPERATIONS PROGRAM MANAGER [address] [place], [place] [address] Hoop Punch And Coiler Operator Helper Family Medicine 06/04/24 Amparo Razo LISW [address] [place] [address] Nurse Instructor Hematology/Oncology 09/14/24 Team Status: Active Member Role Status Dates Dr. Chaitanya Roe MD Primary Care Provider Active Team Status: Inactive Member Role Status Dates Dr. Chaitanya Roe MD Primary Care Provider Active Start: November 24, 2024 End: November 24, 2024 Dr. Aarti Bar DO Attending Provider Active St art: November 24, 2024 End: November 24, 2024 Dr. Aarti Bar DO Referring Provider Active St art: November 24, 2024 End: November 24, 2024 Wind Turbine Blade Repair Technician Relationship Specialty Start Date End Date Dayami Puri MD [address] [place], [place] [address] PCP - General Family Medicine 03/08/24 Jocelin Beach RN Specialty It Quality Analyst Oncology 01/13/24 Aarti Bar DO [address] [place], [place] [address] Hematology/Oncology 01/13/24 Prosper Narvaez [address] [place] [address] Pulmonary Disease 03/15/24 Podlogar, HODA Earl.OPERATIONS PROGRAM MANAGER [address] [facility] [place] [address] Hoop Punch And Coiler Operator Helper Family Medicine 06/04/24 Amparo Razo, JON [address] [place] [address] Nurse Instructor Hematology/Oncology 09/14/24 Wind Turbine Blade Repair Technician Relationship Specialty Start Date End Date Dayami Puri MD [address] [facility] [address] PCP - General Family Medicine 03/08/24 Jocelin Beach RN Specialty It Quality Analyst Oncology 01/13/24 Aarti Bar DO [address] [facility] [place] [address] Hematology/Oncology 01/13/24 Prosper Narvaez [address] [facility] [phone] Pulmonary Disease 03/15/24 Podlogar, HODA Earl.OPERATIONS PROGRAM MANAGER [address] [facility] [address] Hoop Punch And Coiler Operator Helper Family Medicine 06/04/24 Amparo Razo, DIRECTOR CHINA [address] [facility] [address] Nurse Instructor Hematology/Oncology 09/14/24 Wind Turbine Blade Repair Technician Relationship Specialty Start Date End Date Dayami Puri MD [address] [facility] [place] [address] PCP - General Family Medicine 03/08/24 Jocelin Beach RN Specialty It Quality Analyst Oncology 01/13/24 Aarti Bar DO [address] [place] [address] Hematology/Oncology 01/13/24 Prosper Narvaez [address] [place] [address] Pulmonary Disease 03/15/24 Podlogar, HODA Earl.OPERATIONS PROGRAM MANAGER [address] [place] [address] Hoop Punch And Coiler Operator Helper Family Medicine 06/04/24 Amparo Razo LISW [address] [place] [address] Nurse Instructor Hematology/Oncology 09/14/24 Wind Turbine Blade Repair Technician Relationship Specialty Start Date End Date Dayami Puri MD [address] [facility] [place] [address] PCP - General Family Medicine 03/08/24 Jocelin Beach, RN Specialty It Quality Analyst Oncology 01/13/24 Aarti Bar DO [address] [place] [address] Hematology/Oncology 01/13/24 Prosper Narvaez [address] [place] [address] Pulmonary Disease 03/15/24 Podlogar, HODA Earl.OPERATIONS PROGRAM MANAGER [address] [facility] [place] [address] Hoop Punch And Coiler Operator Helper Family Medicine 06/04/24 Amparo Razo LISW [address] [place] [address] Nurse Instructor Hematology/Oncology 09/14/24 Wind Turbine Blade Repair Technician Relationship Specialty Start Date End Date Dayami Puri MD [address] [place] [address] PCP - General Family Medicine 03/08/24 Jocelin Beach RN Specialty It Quality Analyst Oncology 01/13/24 Aarti Bar DO [address] [place] [address] Hematology/Oncology 01/13/24 Prosper Narvaez [address] [facility] [place] [address] Pulmonary Disease 03/15/24 PodlogarMady APRN.OPERATIONS PROGRAM MANAGER [address] [place] [address] Hoop Punch And Coiler Operator Helper Family Medicine 06/04/24 Amparo Razo LISW [address] [place] [address] Nurse Instructor Hematology/Oncology 09/14/24 Brunilda Vergara APRN.OPERATIONS PROGRAM MANAGER [address] [place] [address] Hoop Punch And Coiler Operator Helper Family [facility] 12/08/24 Wind Turbine Blade Repair Technician Relationship Specialty Start Date End Date Dayami Puri MD [address] [place] [address] PCP - General Family Medicine 03/08/24 Jocelin Beach RN Specialty It Quality Analyst Oncology 01/13/24 Aarti Bar DO [address] [place] [address] Hematology/Oncology 01/13/24 Prosper Narvaez [address] [place] [address] Pulmonary Disease 03/15/24 Podlogar, HIRAM EarlN.OPERATIONS PROGRAM MANAGER [address] [facility] [address] Hoop Punch And Coiler Operator Helper Family Medicine 06/04/24 Amparo Razo, DIRECTOR CHINA [address] [place] [address] Nurse Instructor Hematology/Oncology 09/14/24 Brunilda Vergara APRN.OPERATIONS PROGRAM MANAGER [address] [facility] [place] [address] [facility] 12/08/24 Wind Turbine Blade Repair Technician Relationship Specialty Start Date End Date Dayami Puri MD [address] [place] [address] PCP - General Family Medicine 03/08/24 Jocelin Beach RN Specialty It Quality Analyst Oncology 01/13/24 Aarti Bra DO [address] [facility], [place] [address] Hematology/Oncology 01/13/24 Prosper Narvaez [address] [place] [phone] Pulmonary Disease 03/15/24 Podlogar, Mady, MEDICAL REPRESENTATIVE.OPERATIONS PROGRAM MANAGER [address] [facility] [address] [facility] 06/04/24 Amparo Razo, DIRECTOR CHINA [address] [facility] [address] Nurse Instructor Hematology/Oncology 09/14/24 Brunilda Vergara APRN.OPERATIONS PROGRAM MANAGER [address] [place] [address] Hoop Punch And Coiler Operator Helper Family [facility] 12/08/24 Wind Turbine Blade Repair Technician Relationship Specialty Start Date End Date Dayami Puri MD [address] [place] [address] PCP - General Family Medicine 03/08/24 Jocelin Beach RN Specialty It Quality Analyst Oncology 01/13/24 Aarti Bar DO [address] [place] [address] Hematology/Oncology 01/13/24 Prosper Narvaez [address] [place], [place] [address] [address] Pulmonary Disease 03/15/24 PodlogarMady APRN.OPERATIONS PROGRAM MANAGER [address] [place] [address] Hoop Punch And Coiler Operator Helper Family [facility] 06/04/24 Amparo Razo LISW [address] [place] [address] Nurse Instructor Hematology/Oncology 09/14/24 Brunilda Vergara APRN.OPERATIONS PROGRAM MANAGER [address] [place] [address] [facility] 12/08/24 Wind Turbine Blade Repair Technician Relationship Specialty Start Date End Date Dayami Puri MD [address] [place] [address] PCP - General Family Medicine 03/08/24 Jocelin Beach, RN Specialty It Quality Analyst Oncology 01/13/24 Aarti Bar DO [address] [place] [address] Hematology/Oncology 01/13/24 Prosper Narvaez [address] [place] [address] Pulmonary Disease 03/15/24 Podlogar, HODA Earl.OPERATIONS PROGRAM MANAGER [address] [place] [address] Hoop Punch And Coiler Operator Helper Family Medicine 06/04/24 Amparo Razo, DIRECTOR CHINA [address] [place] [address] Nurse Instructor Hematology/Oncology 09/14/24 Brunilda Vergara APRN.OPERATIONS PROGRAM MANAGER [address] [place] [address] [facility] Family [facility] 12/08/24 Wind Turbine Blade Repair Technician Relationship Specialty Start Date End Date Dayami Puri MD [address] [facility] [address] PCP - General Family Medicine 03/08/24 Jocelin Beach, ALESSANDRA Specialty It Quality Analyst Oncology 01/13/24 Aarti Bar DO [address] [facility] [address] Hematology/Oncology 01/13/24 Prosper Narvaez [address] [place] [address] Pulmonary Disease 03/15/24 Podlogar, HIRAM EarlN.OPERATIONS PROGRAM MANAGER [address] [facility] [address] Hoop Punch And Coiler Operator Helper Family Medicine 06/04/24 Amparo Razo, DIRECTOR CHINA [address] [place] [address] Nurse Instructor Hematology/Oncology 09/14/24 Brunilda Vergara, HODA.OPERATIONS PROGRAM MANAGER [address] [place], [place] [address] Hoop Punch And Coiler Operator Helper Family Medicine 12/08/24 Wind Turbine Blade Repair Technician Relationship Specialty Start Date End Date Dayami Puri MD [address] [place], [place] [address] PCP - General Family Medicine 03/08/24 Jocelin Beach RN Specialty It Quality Analyst Oncology 01/13/24 Aarti Bar DO [address] [place], [place] [id number] Hematology/Oncology 01/13/24 Prosper Narvaez [address] [place] [address] [place] [address] Pulmonary Disease 03/15/24 PodlogarMady APRN.OPERATIONS PROGRAM MANAGER [address] [place], [place] [address] Hoop Punch And Coiler Operator Helper Family Medicine 06/04/24 Amparo Razo LISW [address] [place] [address] Nurse Instructor Hematology/Oncology 09/14/24 Brunilda Vergara, MEDICAL REPRESENTATIVE.OPERATIONS PROGRAM MANAGER [address] [place], [place] [address] Hoop Punch And Coiler Operator Helper Family Medicine 12/08/24 Team Status: Active Member Role/Relationship Status Dates Dr. Chaitanya Puri MD Primary Care Provider Acti ve Team Status: Inactive Member Role/Relationship Status Dates Dr. Chaitanya Roe MD Primary Care Provider Active Start: November 24, 2024 End: November 24, 2024 Dr. Aarti Bar DO Attending Provider Active St art: November 24, 2024 End: November 24, 2024 Dr. Aarti Bar DO Referring Provider Active St art: November 24, 2024 End: November 24, 2024 Team Status: Active Member Role/Relationship Status Dates Dr. Chaitanya Puri MD Primary Care Provider Acti ve Start: January 09, 2025 Dr. Alexandro Navarro DO Emergency Provider Active Start : January 09, 2025 Dr. Sindhu Banks MD Other Provider Active Sta rt: January 09, 2025 Dr. Nile Levy MD Other Provider Active Star t: January 09, 2025 Dr. Kalin Cobos MD Other Provider Active Star t: January 09, 2025 Dr. Fab Zarate MD Other Provider Active S tart: January 09, 2025 Dr. Gordo Chaves DO Other Provider Active Start : January 09, 2025 Dr. Parminder Carroll MD Other Provider Active Start : January 09, 2025 Dr. Eddie Acosta DO Other Provider Active St art: January 09, 2025 Dr. Kyle Siddiqi MD Other Provider Active Star t: January 09, 2025 Dr. Richy Sales DO Other Provider Active Start: January 09, 2025 Dr. Angeal Ann MD Other Provider Active Star t: January 09, 2025 Dr. Darin Younger MD Other Provider Active Start: January 09, 2025 Dr. Lex Barillas MD Other Provider Active Star t: January 09, 2025 Dr. Felipa Christianson MD Other Provider Active Start: January 09, 2025 Dr. Jam Lewis MD Other Provider Active St art: January 09, 2025 Dr. Ketty Napoles MD Other Provider Active Start: January 09, 2025 Dr. Wisam Fermin MD Other Provider Active Sta rt: January 09, 2025 Dr. Bj Fisher MD Other Provider Active St art: January 09, 2025 Dr. Nicky Zavala MD Other Provider Active Sta rt: January 09, 2025 Dr. Barrett Brink MD Other Provider Active St art: January 09, 2025 Dr. Cesar Adair MD Other Provider Active Start: January 09, 2025 Dr. Melissa Nguyen MD Other Provider Active Sta rt: January 09, 2025 Dr. Socrates Christensen MD Other Provider Active Start: January 09, 2025 Dr. Marco Antonio Churchill MD Other Provider Active Start : January 09, 2025 Dr. Srinivasan Baker MD Admit Provider Active Sta rt: January 09, 2025 Dr. Srinivasan Baker MD Attending Provider Active Start: January 09, 2025 Wind Turbine Blade Repair Technician Relationship Specialty Start Date End Date Dayami Puri MD [address] [facility] [address] PCP - General Family Medicine 03/08/24 Jocelin Beach RN Specialty It Quality Analyst Oncology 01/13/24 Aarti Bar DO [address] [place] [address] Hematology/Oncology 01/13/24 Prosper Narvaez [address] [place] [phone] Pulmonary Disease 03/15/24 PodMady vila, MEDICAL REPRESENTATIVE.OPERATIONS PROGRAM MANAGER [address] [facility] [address] Hoop Punch And Coiler Operator Helper Family Medicine 06/04/24 Amparo Razo LISW [address] [place] [address] Nurse Instructor Hematology/Oncology 09/14/24 Brunilda Vergara, MEDICAL REPRESENTATIVE.OPERATIONS PROGRAM MANAGER [address] [facility] [place] [address] Hoop Punch And Coiler Operator Helper Family Medicine 12/08/24 Wind Turbine Blade Repair Technician Relationship Specialty Start Date End Date Dayami Puri MD [address] [facility] [address] PCP - General Family Medicine 03/08/24 Doup, Jocelin, RN Specialty It Quality Analyst Oncology 01/13/24 Aarti Bar DO [address] [place], [place] [id number] Hematology/Oncology 01/13/24 BriceProsper [address] [place] [phone] Pulmonary Disease 03/15/24 MeeralogarMady APRN.OPERATIONS PROGRAM MANAGER [address] [place], [place] [address] Hoop Punch And Coiler Operator Helper Family Medicine 06/04/24 Amparo Razo LISW [address] [place] [address] Nurse Instructor Hematology/Oncology 09/14/24 Brunilda Vergara APRN.OPERATIONS PROGRAM MANAGER [address] [place], [place] [id number] [facility] 12/08/24 Reason for Visit (unrecogniz ed section and content) Reason Comments CADD Pump D/C Specialty Diagnoses / Procedures Referred By Contac t Referred To Contact Diagnoses Cancer of cecum (HCC) 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) Procedures OXALIPLATIN LEUCOVORIN CALCIUM INJECTION FLUOROURACIL INJECTION PALONOSETRON HCL INJ MVASI 10 MG INJECTION, Aarti Escamilla DO [address] [place] [address] Jose Roberto [facility] [address] [place] [address] Referral ID Status Reason Start Date Expiration Date Visits Requested Visits Authorized [id number] Pending Review Patient Cleared - Admin/Chair man/Directo r advise to proceed or did not respond 12/29/2023 09/27/2024 99 99 Reason Comments New Patient Specialty Diagnoses / Procedures Referred By Contac t Referred To Contact Hematology/Oncology Diagnoses 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 (HCC) Procedures AMB REFERRAL TO MALIGNANT HEMATOLOGY (HEMATOLOGY / ONCOLOGY) Dayami Roe MD [address] [place] [address] Aarti Bar DO [address] [place] [address] Referral ID Status Reason Start Date Expiration Date V isits Requested Visits Authorized [id number] Outside PCP 11/13/2023 11/12/2024 1 1 Reason Comments 6 [facility] LAB[facility] Reason Comments Follow-up Yearly previous Baco n/ Reason Comments Medicare Annual Wellness Visit Elio t 6 [facility] LABS Specialty Diagnoses / Procedures Referred By Contac t Referred To Contact Primary Care Diagnoses Mixed hyperlipidemia Hypertension, essential, benign Type 2 diabetes mellitus without complication, without long-term current use of insulin (CMS/HCC) Gastroesophageal reflux disease without esophagitis 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 Obstructive sleep apnea syndrome Procedures Follow Up In Primary Care - Established Dayami Roe MD [address] [place] [address] Referral ID Status Reason Start Date Expiration Date Visits Re quested Visits Authorized [id number] Closed 12/31/2022 06/29/2023 1 1 Reason Comments ER F/U ALLERGIC REACTION TO MEDICATION Specialty Diagnoses / Procedures Referred By Contac t Referred To Contact Diagnoses SOB (shortness of breath) Acute respiratory failure with hypoxia (HCC) Anemia, unspecified type Acute anemia Referral ID Status Reason Start Date Expiration Date Visits Re quested Visits Authorized [id number] 1 1 Reason Comments Shortness of Breath Specialty Diagnoses / Procedures Referred By Contac t Referred To Contact Diagnoses SOB (shortness of breath) Acute respiratory failure with hypoxia (HCC) Anemia, unspecified type Acute anemia Reason Comments Post-op Colectomy and small bowel resection Reason Comments Colon Cancer IP f/u new colon ca, pt needs tempus blood sample Reason Comments [place] F/U Colon Surgery Reason Comments Colon Cancer Reason Comments Established Patient Reason Comments AVS 12/15/23/CHEMO START Reason Comments Care Coordination Rx needed Reason Comments Non-Chemotherapy Treatment Specialty Diagnoses / Procedures Referred By Contac t Referred To Contact Diagnoses Iron malabsorption Iron deficiency anemia due to chronic blood loss Cancer of cecum (HCC) 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) Procedures IRON SUCROSE INJECTION PER 1 MG Aarti Bar, DO [address] [facility] [place] [address] Jose Roberto [facility] [address] [place] [address] Referral ID Status Reason Start Date Expiration Date V isits Requested Visits Authorized [id number] Authorized 12/17/2023 06/28/2024 99 99 Reason Comments Social Work Services Reason Comments Chemotherapy Treatment Specialty Diagnoses / Procedures [facility] To Contact Diagnoses Cancer of cecum (HCC) 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) Procedures OXALIPLATIN LEUCOVORIN CALCIUM INJECTION FLUOROURACIL INJECTION PALONOSETRON HCL INJ MVASI 10 MG Aarti Bar, DO [address] [place] [address] [facility] [address] [place] [address] Referral ID Status Reason Start Date Expiration Date Visits Requested Visits Authorized [id number] Waiting for Response Patient Cleared - Admin/Chair man/Directo r advise to proceed or did not respond 12/29/2023 03/14/2024 6 6 Reason Comments It Quality Analyst - Other C1D1 Post Treat ment Call (Folfox+Avastin) Reason Comments Blood Draw (CVAD) Reason Comments AVS 01/19/24 Referral ID Status Reason Start Date Expiration Date Visits Requested Visits Authorized [id number] Authorized Patient Cleared - Admin/Chairm an/Director advise to proceed or did not respond 12/29/2023 06/28/2024 99 99 Reason Comments Patient Update Reason Comments It Quality Analyst - Other Symptoms Reason Comments Established Patient Reason Comments Establish Care Reason Comments 23932- pall med Initial Consult Reason Comments Results Reason Comments CVAD Access Specialty Diagnoses / Procedures [facility] To Contact [facility] Diagnoses Cancer of cecum (HCC) 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) Malignant neoplasm of colon, unspecified part of colon (HCC) Procedures CT CHEST W IVCON DIAGNOSTIC COMPUTED TOMOGRAPHY THORAX W/CONTRAST Frankie Owensianna [address] [place] [address] [place] [address] Referral ID Status Reason Start Date Expiration Date V isits Requested Visits Authorized [id number] Closed Auto-Generate d Referral 03/01/2024 06/28/2024 [address] Specialty Diagnoses / Procedures Referred By Contac t Referred To Contact CT IMAGING Diagnoses Cancer of cecum (HCC) 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) Malignant neoplasm of colon, unspecified part of colon (HCC) Procedures CT CHEST W IVCON DIAGNOSTIC COMPUTED TOMOGRAPHY THORAX W/CONTRAST Rhonda Owens [address] [place] [address] [place] [address] Reason Comments Imm/Inj Reason Comments Follow-up 6 month follow up [facility] labs Specialty Diagnoses / Procedures Referred By Contac t Referred To Contact Primary Care Diagnoses Mixed hyperlipidemia Hypertension, essential, benign Type 2 diabetes mellitus without complication, without long-term current use of insulin (Multi) Gastroesophageal reflux disease without esophagitis 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 Obstructive sleep apnea syndrome Routine general medical examination at health care facility Obesity, morbid (Multi) Primary insomnia Procedures Follow Up In Primary Care - Established Dayami Roe MD [address] [place] [address] Referral ID Status Reason Start Date Expiration Date V isits Requested Visits Authorized [id number] Authorized 07/03/2023 07/02/2024 1 1 Specialty Diagnoses / Procedures Referred By Contac t Referred To Contact Diagnoses Cancer of cecum (HCC) 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 60 MINUTES Dayami Puri MD [address] [place] [address] Referral ID Status Reason Start Date Expiration Date V isits Requested Visits Authorized [id number] Closed PCP Requested Referral 03/08/2024 03/08/2025 1 1 Reason Comments Acute Visit cough, congestion an d fatique Reason Comments Results Covid/Flu, RSV Referral ID Status Reason Start Date Expiration Date Visits Requested Visits Authorized [id number] Authorized Patient Cleared - Admin/Chairm an/Director advise to proceed or did not respond 12/29/2023 09/27/2024 99 99 Reason Comments Follow Up 4 month Reason Comments Diabetes Specialty Diagnoses / Procedures Referred By Contac t Referred To Contact Diagnoses Cancer of cecum (HCC) 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) Procedures OXALIPLATIN LEUCOVORIN CALCIUM INJECTION FLUOROURACIL INJECTION PALONOSETRON HCL INJ MVASI 10 MG INJECTION, Aarti Escamilla DO [address] [place] [address] Phone: tel: fax: Hematology/Oncology [address] [place] [address] Phone: tel: fax: Referral ID Status Reason Start Date Expiration Date Visits Requested Visits Authorized [id number] Authorized Patient Cleared - Admin/Chairm an/Director advise to proceed or did not respond 12/29/2023 09/27/2024 99 99 Referral ID Status Reason Start Date Expiration Date Visits Requested Visits Authorized [id number] Authorized Patient Cleared - Admin/Chairm an/Director advise to proceed or did not respond 12/29/2023 11/01/2024 99 99 Reason Onset Date Comments Refill Request 09/12/2024 Reason Comments Benefits Investigation Reason Onset Date Comments Refill Request 09/19/2024 Referral ID Status Reason Start Date Expiration Date Visits Requested Visits Authorized [id number] Authorized Patient Cleared - Admin/Chairm an/Director advise to proceed or did not respond 12/29/2023 03/26/2025 27 27 Referral ID Status Reason Start Date Expiration Date Visits Requested Visits Authorized [id number] Authorized Patient Cleared - Admin/Chairm an/Director advise to proceed or did not respond 12/29/2023 03/26/2025 38 38 Specialty Diagnoses / Procedures Referred By Contac t Referred To Contact CT IMAGING Diagnoses Cancer of cecum (HCC) 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) Procedures CT ABD/PEL W IVCON CT ABD & PELVIS W/CONTRAST Aarti Bar, DO [address] [place] [address] Phone: tel: fax: [place] [address] Referral ID Status Reason Start Date Expiration Date V isits Requested Visits Authorized [id number] Closed Auto-Generate d Referral 10/12/2024 11/11/2025 1 1 Reason Onset Date Comments Refill Request 11/07/2024 Reason Comments It Quality Analyst - Other Change in treat ment Reason Comments Refill Request Specialty Diagnoses / Procedures Referred By [facility] [facility] Diagnoses Cancer of cecum (HCC) 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) Procedures LEUCOVORIN CALCIUM INJECTION PALONOSETRON HCL IRINOTECAN, 20 MG FLUOROURACIL INJECTION INJ., ZIRABEV, 10 MG Aarti Bar, DO [address] [place] [address] Phone: tel: fax: Aarti Bar, DO [address] [facility] [place] [address] Phone: tel: fax: Referral ID Status Reason Start Date Expiration Date V Donya Labsts Requested Visits Authorized [id number] Pending Review 11/23/2024 03/26/2025 1 99 Reason Comments Appointment Transfusion Referral ID Status Reason Start Date Expiration Date Visits Requested Visits Authorized [id number] Pending Review Patient Cleared - Admin/Chair man/Directo r advise to proceed or did not respond 11/23/2024 03/26/2025 1 102 Reason Comments It Quality Analyst - Other C1D1 Post Treat ment Call (Folfir) Referral ID Status Reason Start Date Expiration Date Visits Requested Visits Authorized [id number] Pending Review Patient Cleared - Admin/Chair man/Directo r advise to proceed or did not respond 11/23/2024 03/26/2025 1 101 Reason Comments Appointment Reason Comments Insurance Authorization Reason Comments Care Coordination Diarrhea/Nausea Reason Comments Care Coordination Follow up Note Reason Comments Care Coordination Follow up Note Reason Comments It Quality Analyst - Other ED Follow-up Reason Comments Orders Reason Comments 6 Month Exam ER F/U [facility] 12/20/24 na usea/vomiting, coughing, SOB Reason Onset Date Comments Results 01/09/2025 Scheduled Active and Recently Administ ered Medications (unrecognized section and content) Medication Order 10/27/2023 10/28/2023 10/29/2023 atorvastatin (LIPITOR) tablet 20 mg 20 mg, Oral, Nightly, First dose on Thu10/21/23 at 2100 2106 (Given - Provider: Shell Ruvalcaba RN) 2206 (Given - Provider: Vladimir Dias, RN) enoxaparin (LOVENOX) syringe 40 mg 40 mg, Subcutaneous, Daily, First dose on Thu10/23/23 at 0900, Administer in abdomen unless otherwise directed by prescriber. Notify physician if patient refuses., Indication: VTE Prophylaxis 901 (Given - Provider: Liliana Weiss RN) 08 (Given - Provider: Liliana Weiss RN) 09 (Given - Provider: Jannet Perez, ALESSANDRA) guaiFENesin (MUCINEX) 12 hr tablet 600 mg 600 mg, Oral, Every 12 hours scheduled, First dose on Thu10/23/23 at 2100, DO NOT CRUSH OR CHEW. 09 (Given - Provider: Liliana Weiss RN)2106 (Given - Provider: Shell Ruvalcaba RN) 08 (Given - Provider: Liliana Weiss RN)2206 (Given - Provider: Vladimir Dias, RN) 913 (Given - Provider: Jannet Perez, ALESSANDRA) hydroCHLOROthiazide tablet 12.5 mg 12.5 mg, Oral, Daily, First dose on Thu10/27/23 at 1500 1532 (Given - Provider: Liliana Weiss RN) 0837 (Given - Provider: Liliana Weiss RN) 0914 (Given - Provider: Jannet Perez RN) insulin glargine (LANTUS) injection 5 Units (COMPLETED) 5 Units, Subcutaneous, Once, On Thu10/28/23 at 1500, For 1 dose, If patient NPO and BG LESS than 100 before procedure, administer half (rounded up to nearest unit) of the glargine insulin (LANTUS) dose; if BG is GREATER than 100, administer the full dose unless otherwise instructed by ordering physician Do not mix with other insulins in a syringe. Do NOT hold basal insulin without notifying physician 1542 (Given - Provider: Liliana Weiss RN) insulin lispro (AdmeLOG,HumaLOG) injection 0-15 Units(Linked Group 1) 0-15 Units, Subcutaneous, At bedtime, First dose on Thu10/19/23 at 2100, IF initial POC glucose is greater than 250, administer insulin as directed and re-check POC glucose no sooner than 2 hours after administration. THEN notify provider if POC glucose is still greater than 250., For nightly BG greater than 250, give: Half ( ) Corrective Scale, Nightly Prandial Snack Dosing Method: NO Snack Coverage - Corrective Scale ONLY, Nightly Insulin Dose Corrective Scale: FOLLOW DAYTIME Prandial Corrective Scale, Corrective Insulin Regimen (select desired scale to cover BG result): USUAL Sensitivity Scale, (REMINDER: Nightly Insulin Dose Corrective Scale will be automatically calculated to be of the daytime scale), Dose Reduction Threshold (at meals) for POC Blood Glucose less than or equal to: 80, For Downtime Calculator, use: Insulin SC NIGHTtime 2100 (Not Given - Provider: Shell Ruvalcaba RN - Reason: Order parameters not met) 2100 (Not Given - Provider: Vladimir Dias RN - Reason: Order parameters not met) insulin lispro (AdmeLOG,HumaLOG) injection 0-30 Units 0-30 Units, Subcutaneous, 3 times daily before meals, First dose on Thu10/19/23 at 1130, * Dose should be given EITHER: No sooner than 10-15 minutes BEFORE a meal (Specific Prandial Doses or NO Prandial Dose - Corrective Scale ONLY) - OR - Immediately AFTER meal completed (Carb Counting Ratio), Prandial Insulin Dosing Method: NO Prandial Dose - Corrective Scale ONLY, Corrective Insulin Regimen (select desired scale to cover BG result): USUAL Sensitivity Scale, Dose Reduction Threshold (at meals) for POC Blood Glucose less than or equal to: 80, For Downtime Calculator, use: Insulin SC MEALtime PREprandial 0900 (Given - Provider: Liliana Weiss RN)1152 (Given - Provider: Liliana Weiss RN)1727 (Given - Provider: Liliana Weiss RN) 0837 (Given - Provider: Liliana Weiss RN)1308 (Given - Provider: Liliana Weiss RN)1713 (Given - Provider: Liliana Weiss RN) 0914 (Given - Provider: Jannet Perez RN)1221 (Given - Provider: Jannet Perez RN)1630 (Due) metoclopramide (REGLAN) injection 10 mg (CANCELED) 10 mg, Intravenous, Every 6 hours, First dose on Thu10/23/23 at 1645 0554 (Given - Provider: Amber Fernandez RN)1049 (Given - Provider: Liliana Weiss RN)1624 (Given - Provider: Liliana Weiss RN)2326 (Given - Provider: Shell Ruvalcaba RN) 0549 (Given - Provider: Shell Ruvalcaba RN)1013 (Given - Provider: Liliana Weiss RN) pantoprazole (PROTONIX) injection 40 mg 40 mg, Intravenous, Every 12 hours, First dose on Thu10/19/23 at 1200, Dilute each vial with 10 mL of 0.9% NaCl. 0902 (Given - Provider: Liliana Weiss RN)2107 (Given - Provider: Shell Ruvalcaba RN) 0837 (Given - Provider: Liliana Weiss RN)2207 (Given - Provider: Vladimir Dias RN) 0914 (Given - Provider: Jannet Perez RN) polyethylene glycol (MIRALAX) powder 17 g 17 g, Oral, Daily, First dose on Thu10/25/23 at 1100 0902 (Given - Provider: Liliana Weiss RN) 0836 (Given - Provider: Liliana Weiss RN) 0900 (Hold - Provider: Jannet Perez RN - Reason: Other) senna-docusate (SENNA-S) 8.6-50 mg per tablet 1 tablet 1 tablet, Oral, 2 times daily, First dose on Thu10/23/23 at 2100, NOT for abdominal surgery patients. Hold for loose stools. Do Not Crush or Chew if administering orally due to bitter taste. May be crushed if given via tube. 0902 (Given - Provider: Liliana Weiss RN)2100 (Not Given - Provider: Shell Ruvalcaba RN - Reason: Order parameters not met) 0836 (Given - Provider: Liliana Weiss RN)2100 (Not Given - Provider: Vladimir Dias RN - Reason: Patient/family refused) 0900 (Hold - Provider: Jannet Perez RN - Reason: Other) sodium chloride (PF) (NS) flush 5 mL(Linked Group 2) 5 mL, Intravenous, Every 8 hours scheduled, First dose on Thu10/19/23 at 1400, Saline lock 0554 (Given - Provider: Amber Fernandez RN)1532 (Given - Provider: Liliana Weiss RN)1623 (Given - Provider: Liliana Wiess RN)2108 (Given - Provider: Shell Ruvalcaba RN) 0549 (Given - Provider: Shell Ruvalcaba RN)1400 (Canceled Entry - Provider: Liliana Weiss RN)2207 (Given - Provider: Vladimir Dias, ALESSANDRA) 0521 (Given - Provider: Vladimir Dias RN)1400 (Not Given - Provider: Jannet Perez RN - Reason: Loss of IV access) zolpidem (AMBIEN) tablet 10 mg 10 mg, Oral, Nightly, First dose on Thu10/21/23 at 2100 2107 (Given - Provider: Shell Ruvalcaba RN) 2207 (Given - Provider: Vladimir Dias, ALESSANDRA) PRN Medication Order 10/27/2023 10/28/2023 10/29/2023 acetaminophen (TYLENOL) tablet 650 mg 650 mg, Oral, Every 4 hours PRN, mild pain, fever 100.4 F or greater, headaches, Starting on Thu10/19/23 at 1057 HYDROcodone-homatropine (HYCODAN,HYDROMET) 5-1.5 mg/5 mL syrup 5 mL 5 mL, Oral, Every 4 hours PRN, cough, Starting on Thu10/23/23 at 1516 ipratropium-albuteroL (DUO-NEB) 0.5-2.5 mg/3 ml nebulizer solution 3 mL 3 mL, Inhalation, Every 4 hours PRN (RT), shortness of breath, Starting on Thu10/21/23 at 0848 naloxone (NARCAN) injection 0.1 mg(Linked Group 3) 0.1 mg, Intravenous, As needed, opioid reversal, For respiratory rate less than or equal to 8 per minute., Starting on Thu10/23/23 at 1510, Mix nalOXone (NARCAN) 0.4 mg (1mL) with 9 mL of Normal Saline to total 10 mL. Administer 0.1 mg (2.5mL) IV Push every 2 minutes until respiratory rate is 10 or greater. naloxone (NARCAN) injection 0.4 mg(Linked Group 3) 0.4 mg, Intravenous, As needed, opioid reversal, patient is pulseless, breathless, and unresponsive, Starting on Thu10/23/23 at 1510, Call a code first, then administer naloxone dose undiluted IV Push over 30 seconds. ondansetron (ZOFRAN) injection 4 mg 4 mg, Intravenous, Every 6 hours PRN, nausea, vomiting, Starting on Thu10/19/23 at 1057 1621 (Not Given - Provider: Liliana Weiss RN - Reason: Other - Comment: pt not needed) oxyCODONE (ROXICODONE) immediate release tablet 5-10 mg 5-10 mg, Oral, Every 4 hours PRN (may repeat), moderate to severe pain, Starting on Thu10/23/23 at 1510, Initiate with 5 mg oral every 4 hours prn moderate to severe pain. For unrelieved pain, may repeat 5 mg within 60 minutes of initial dose. If pain is RELIEVED after repeat dose, change to 10 mg every 4 hours prn moderate to severe pain. If pain is UNrelieved after repeat dose, or patient requires dose reduction, call physician. 0235 (Given - Provider: Amber Fernandez RN) sodium chloride (PF) (NS) flush 5 mL(Linked Group 2) 5 mL, Intravenous, As needed, line care, Starting on Thu10/19/23 at 1053 sodium chloride 0.9% (NS)(Linked Group 2) 0-150 mL/hr, Intravenous, As needed, To flush line after IV infusions when no maintenance IV ordered or a compatibility issue. Infuse 20ml at the same rate as the secondary infusion, Starting on Thu10/19/23 at 1053, Run as Primary IV. NOT intended for KVO. sodium chloride-aloe vera topical gel Gel Topical, As needed, dry skin, Starting on Thu10/21/23 at 0849, Apply to nose on nose traZODone (DESYREL) tablet 50 mg 50 mg, Oral, Nightly PRN, sleep, Starting on Thu10/19/23 at 1058, May repeat times 1 in 30 minutes if still awake. Linked Groups Order Group 1: insulin lispro (AdmeLOG,HumaLOG) injection 0-15 UnitsJump to med 0-15 Units, Subcutaneous, At bedtime, First dose on Thu10/19/23 at 2100, IF initial POC glucose is greater than 250, administer insulin as directed and re-check POC glucose no sooner than 2 hours after administration. THEN notify provider if POC glucose is still greater than 250., For nightly BG greater than 250, give: Half ( ) Corrective Scale, Nightly Prandial Snack Dosing Method: NO Snack Coverage - Corrective Scale ONLY, Nightly Insulin Dose Corrective Scale: FOLLOW DAYTIME Prandial Corrective Scale, Corrective Insulin Regimen (select desired scale to cover BG result): USUAL Sensitivity Scale, (REMINDER: Nightly Insulin Dose Corrective Scale will be automatically calculated to be of the daytime scale), Dose Reduction Threshold (at meals) for POC Blood Glucose less than or equal to: 80, For Downtime Calculator, use: Insulin SC NIGHTtime And Notify physician (CANCELED) Routine, Until discontinued, Starting on Thu10/19/23 at 1101, Until Specified, Other: IF HS POC Glucose RE-CHECK Greater than 250, If initial HS POC glucose is greater than 250, administer insulin as directed and re-check POC glucose no sooner than 2 hours after administration. IF RE-CHECK POC glucose is still greater than 250, notify provider. Group 2: Saline lock IV (CANCELED) Routine, Continuous, Starting on Thu10/19/23 at 1054, Until Specified And sodium chloride (PF) (NS) flush 5 mLJump to med 5 mL, Intravenous, As needed, line care, Starting on Thu10/19/23 at 1053 And sodium chloride (PF) (NS) flush 5 mLJump to med 5 mL, Intravenous, Every 8 hours scheduled, First dose on Thu10/19/23 at 1400, Saline lock And sodium chloride 0.9% (NS)Jump to med 0-150 mL/hr, Intravenous, As needed, To flush line after IV infusions when no maintenance IV ordered or a compatibility issue. Infuse 20ml at the same rate as the secondary infusion, Starting on Thu10/19/23 at 1053, Run as Primary IV. NOT intended for KVO. Group 3: naloxone (NARCAN) injection 0.1 mgJump to med 0.1 mg, Intravenous, As needed, opioid reversal, For respiratory rate less than or equal to 8 per minute., Starting on Thu10/23/23 at 1510, Mix nalOXone (NARCAN) 0.4 mg (1mL) with 9 mL of Normal Saline to total 10 mL. Administer 0.1 mg (2.5mL) IV Push every 2 minutes until respiratory rate is 10 or greater. And Notify physician (CANCELED) STAT, Until discontinued, Starting on Thu10/23/23 at 1510, Until Specified, Respiratory rate less than: 8, For respiratory rate less than or equal to 8, notify physician and/or appropriate staff for additional orders. And naloxone (NARCAN) injection 0.4 mgJump to med 0.4 mg, Intravenous, As needed, opioid reversal, patient is pulseless, breathless, and unresponsive, Starting on Thu10/23/23 at 1510, Call a code first, then administer naloxone dose undiluted IV Push over 30 seconds. Source Comments (unrecognize d section and content) In the event this informatio n is protected by the Federal Confidentiality of Alcohol and Drug Abuse Patient Records regulations: The Federal rules restrict any use of the information to criminally investigate or prosecute any alcohol or drug abuse patient.[facility]In the event this information is protected by the Federal Confidentiality of Alcohol and Drug Abuse Patient Records regulations: The Federal rules restrict any use of the information to criminally investigate or prosecute any alcohol or drug abuse patient.[facility] SystemIn the event this information is protected by the Federal Confidentiality of Alcohol and Drug Abuse Patient Records regulations: The Federal rules restrict any use of the information to criminally investigate or prosecute any alcohol or drug abuse patient.[facility] SystemIn the event this information is protected by the Federal Confidentiality of Alcohol and Drug Abuse Patient Records regulations: The Federal rules restrict any use of the information to criminally investigate or prosecute any alcohol or drug abuse patient.[facility] SystemIn the event this information is protected by the Federal Confidentiality of Alcohol and Drug Abuse Patient Records regulations: The Federal rules restrict any use of the information to criminally investigate or prosecute any alcohol or drug abuse patient.[facility] SystemIn the event this information is protected by the Federal Confidentiality of Alcohol and Drug Abuse Patient Records regulations: The Federal rules restrict any use of the information to criminally investigate or prosecute any alcohol or drug abuse patient.[facility] SystemIn the event this information is protected by the Federal Confidentiality of Alcohol and Drug Abuse Patient Records regulations: The Federal rules restrict any use of the information to criminally investigate or prosecute any alcohol or drug abuse patient.[facility] SystemIn the event this information is protected by the Federal Confidentiality of Alcohol and Drug Abuse Patient Records regulations: The Federal rules restrict any use of the information to criminally investigate or prosecute any alcohol or drug abuse patient.[facility] SystemIn the event this information is protected by the Federal Confidentiality of Alcohol and Drug Abuse Patient Records regulations: The Federal rules restrict any use of the information to criminally investigate or prosecute any alcohol or drug abuse patient.[facility] SystemIn the event this information is protected by the Federal Confidentiality of Alcohol and Drug Abuse Patient Records regulations: The Federal rules restrict any use of the information to criminally investigate or prosecute any alcohol or drug abuse patient.[facility] SystemIn the event this information is protected by the Federal Confidentiality of Alcohol and Drug Abuse Patient Records regulations: The Federal rules restrict any use of the information to criminally investigate or prosecute any alcohol or drug abuse patient.[facility] SystemIn the event this information is protected by the Federal Confidentiality of Alcohol and Drug Abuse Patient Records regulations: The Federal rules restrict any use of the information to criminally investigate or prosecute any alcohol or drug abuse patient.[facility] SystemIn the event this information is protected by the Federal Confidentiality of Alcohol and Drug Abuse Patient Records regulations: The Federal rules restrict any use of the information to criminally investigate or prosecute any alcohol or drug abuse patient.[facility] SystemIn the event this information is protected by the Federal Confidentiality of Alcohol and Drug Abuse Patient Records regulations: The Federal rules restrict any use of the information to criminally investigate or prosecute any alcohol or drug abuse patient.[facility] SystemIn the event this information is protected by the Federal Confidentiality of Alcohol and Drug Abuse Patient Records regulations: The Federal rules restrict any use of the information to criminally investigate or prosecute any alcohol or drug abuse patient.[facility] SystemIn the event this information is protected by the Federal Confidentiality of Alcohol and Drug Abuse Patient Records regulations: The Federal rules restrict any use of the information to criminally investigate or prosecute any alcohol or drug abuse patient.[facility] SystemIn the event this information is protected by the Federal Confidentiality of Alcohol and Drug Abuse Patient Records regulations: The Federal rules restrict any use of the information to criminally investigate or prosecute any alcohol or drug abuse patient.[facility] SystemIn the event this information is protected by the Federal Confidentiality of Alcohol and Drug Abuse Patient Records regulations: The Federal rules restrict any use of the information to criminally investigate or prosecute any alcohol or drug abuse patient.[facility] SystemIn the event this information is protected by the Federal Confidentiality of Alcohol and Drug Abuse Patient Records regulations: The Federal rules restrict any use of the information to criminally investigate or prosecute any alcohol or drug abuse patient.[facility] SystemIn the event this information is protected by the Federal Confidentiality of Alcohol and Drug Abuse Patient Records regulations: The Federal rules restrict any use of the information to criminally investigate or prosecute any alcohol or drug abuse patient.[facility] SystemIn the event this information is protected by the Federal Confidentiality of Alcohol and Drug Abuse Patient Records regulations: The Federal rules restrict any use of the information to criminally investigate or prosecute any alcohol or drug abuse patient.[facility] SystemIn the event this information is protected by the Federal Confidentiality of Alcohol and Drug Abuse Patient Records regulations: The Federal rules restrict any use of the information to criminally investigate or prosecute any alcohol or drug abuse patient.[facility] SystemIn the event this information is protected by the Federal Confidentiality of Alcohol and Drug Abuse Patient Records regulations: The Federal rules restrict any use of the information to criminally investigate or prosecute any alcohol or drug abuse patient.[facility] SystemIn the event this information is protected by the Federal Confidentiality of Alcohol and Drug Abuse Patient Records regulations: The Federal rules restrict any use of the information to criminally investigate or prosecute any alcohol or drug abuse patient.[facility] SystemIn the event this information is protected by the Federal Confidentiality of Alcohol and Drug Abuse Patient Records regulations: The Federal rules restrict any use of the information to criminally investigate or prosecute any alcohol or drug abuse patient.[facility] SystemIn the event this information is protected by the Federal Confidentiality of Alcohol and Drug Abuse Patient Records regulations: The Federal rules restrict any use of the information to criminally investigate or prosecute any alcohol or drug abuse patient.[facility] SystemIn the event this information is protected by the Federal Confidentiality of Alcohol and Drug Abuse Patient Records regulations: The Federal rules restrict any use of the information to criminally investigate or prosecute any alcohol or drug abuse patient.[facility] SystemIn the event this information is protected by the Federal Confidentiality of Alcohol and Drug Abuse Patient Records regulations: The Federal rules restrict any use of the information to criminally investigate or prosecute any alcohol or drug abuse patient.[facility] SystemIn the event this information is protected by the Federal Confidentiality of Alcohol and Drug Abuse Patient Records regulations: The Federal rules restrict any use of the information to criminally investigate or prosecute any alcohol or drug abuse patient.[facility] SystemIn the event this information is protected by the Federal Confidentiality of Alcohol and Drug Abuse Patient Records regulations: The Federal rules restrict any use of the information to criminally investigate or prosecute any alcohol or drug abuse patient.[facility] SystemIn the event this information is protected by the Federal Confidentiality of Alcohol and Drug Abuse Patient Records regulations: The Federal rules restrict any use of the information to criminally investigate or prosecute any alcohol or drug abuse patient.[facility] SystemIn the event this information is protected by the Federal Confidentiality of Alcohol and Drug Abuse Patient Records regulations: The Federal rules restrict any use of the information to criminally investigate or prosecute any alcohol or drug abuse patient.[facility] SystemIn the event this information is protected by the Federal Confidentiality of Alcohol and Drug Abuse Patient Records regulations: The Federal rules restrict any use of the information to criminally investigate or prosecute any alcohol or drug abuse patient.[facility] SystemIn the event this information is protected by the Federal Confidentiality of Alcohol and Drug Abuse Patient Records regulations: The Federal rules restrict any use of the information to criminally investigate or prosecute any alcohol or drug abuse patient.[facility] SystemIn the event this information is protected by the Federal Confidentiality of Alcohol and Drug Abuse Patient Records regulations: The Federal rules restrict any use of the information to criminally investigate or prosecute any alcohol or drug abuse patient.[facility] SystemIn the event this information is protected by the Federal Confidentiality of Alcohol and Drug Abuse Patient Records regulations: The Federal rules restrict any use of the information to criminally investigate or prosecute any alcohol or drug abuse patient.[facility] SystemIn the event this information is protected by the Federal Confidentiality of Alcohol and Drug Abuse Patient Records regulations: The Federal rules restrict any use of the information to criminally investigate or prosecute any alcohol or drug abuse patient.[facility] SystemIn the event this information is protected by the Federal Confidentiality of Alcohol and Drug Abuse Patient Records regulations: The Federal rules restrict any use of the information to criminally investigate or prosecute any alcohol or drug abuse patient.[facility] SystemIn the event this information is protected by the Federal Confidentiality of Alcohol and Drug Abuse Patient Records regulations: The Federal rules restrict any use of the information to criminally investigate or prosecute any alcohol or drug abuse patient.[facility] SystemIn the event this information is protected by the Federal Confidentiality of Alcohol and Drug Abuse Patient Records regulations: The Federal rules restrict any use of the information to criminally investigate or prosecute any alcohol or drug abuse patient.[facility] SystemIn the event this information is protected by the Federal Confidentiality of Alcohol and Drug Abuse Patient Records regulations: The Federal rules restrict any use of the information to criminally investigate or prosecute any alcohol or drug abuse patient.[facility] SystemIn the event this information is protected by the Federal Confidentiality of Alcohol and Drug Abuse Patient Records regulations: The Federal rules restrict any use of the information to criminally investigate or prosecute any alcohol or drug abuse patient.[facility] SystemIn the event this information is protected by the Federal Confidentiality of Alcohol and Drug Abuse Patient Records regulations: The Federal rules restrict any use of the information to criminally investigate or prosecute any alcohol or drug abuse patient.[facility] SystemIn the event this information is protected by the Federal Confidentiality of Alcohol and Drug Abuse Patient Records regulations: The Federal rules restrict any use of the information to criminally investigate or prosecute any alcohol or drug abuse patient.[facility] SystemIn the event this information is protected by the Federal Confidentiality of Alcohol and Drug Abuse Patient Records regulations: The Federal rules restrict any use of the information to criminally investigate or prosecute any alcohol or drug abuse patient.[facility] SystemIn the event this information is protected by the Federal Confidentiality of Alcohol and Drug Abuse Patient Records regulations: The Federal rules restrict any use of the information to criminally investigate or prosecute any alcohol or drug abuse patient.[facility] SystemIn the event this information is protected by the Federal Confidentiality of Alcohol and Drug Abuse Patient Records regulations: The Federal rules restrict any use of the information to criminally investigate or prosecute any alcohol or drug abuse patient.[facility] SystemIn the event this information is protected by the Federal Confidentiality of Alcohol and Drug Abuse Patient Records regulations: The Federal rules restrict any use of the information to criminally investigate or prosecute any alcohol or drug abuse patient.[facility] SystemIn the event this information is protected by the Federal Confidentiality of Alcohol and Drug Abuse Patient Records regulations: The Federal rules restrict any use of the information to criminally investigate or prosecute any alcohol or drug abuse patient.[facility] SystemIn the event this information is protected by the Federal Confidentiality of Alcohol and Drug Abuse Patient Records regulations: The Federal rules restrict any use of the information to criminally investigate or prosecute any alcohol or drug abuse patient.[facility] SystemIn the event this information is protected by the Federal Confidentiality of Alcohol and Drug Abuse Patient Records regulations: The Federal rules restrict any use of the information to criminally investigate or prosecute any alcohol or drug abuse patient.[facility] SystemIn the event this information is protected by the Federal Confidentiality of Alcohol and Drug Abuse Patient Records regulations: The Federal rules restrict any use of the information to criminally investigate or prosecute any alcohol or drug abuse patient.[facility] SystemIn the event this information is protected by the Federal Confidentiality of Alcohol and Drug Abuse Patient Records regulations: The Federal rules restrict any use of the information to criminally investigate or prosecute any alcohol or drug abuse patient.[facility] SystemIn the event this information is protected by the Federal Confidentiality of Alcohol and Drug Abuse Patient Records regulations: The Federal rules restrict any use of the information to criminally investigate or prosecute any alcohol or drug abuse patient.[facility] SystemIn the event this information is protected by the Federal Confidentiality of Alcohol and Drug Abuse Patient Records regulations: The Federal rules restrict any use of the information to criminally investigate or prosecute any alcohol or drug abuse patient.[facility] SystemIn the event this information is protected by the Federal Confidentiality of Alcohol and Drug Abuse Patient Records regulations: The Federal rules restrict any use of the information to criminally investigate or prosecute any alcohol or drug abuse patient.[facility] SystemIn the event this information is protected by the Federal Confidentiality of Alcohol and Drug Abuse Patient Records regulations: The Federal rules restrict any use of the information to criminally investigate or prosecute any alcohol or drug abuse patient.[facility] SystemIn the event this information is protected by the Federal Confidentiality of Alcohol and Drug Abuse Patient Records regulations: The Federal rules restrict any use of the information to criminally investigate or prosecute any alcohol or drug abuse patient.[facility] SystemIn the event this information is protected by the Federal Confidentiality of Alcohol and Drug Abuse Patient Records regulations: The Federal rules restrict any use of the information to criminally investigate or prosecute any alcohol or drug abuse patient.[facility] SystemIn the event this information is protected by the Federal Confidentiality of Alcohol and Drug Abuse Patient Records regulations: The Federal rules restrict any use of the information to criminally investigate or prosecute any alcohol or drug abuse patient.[facility] SystemIn the event this information is protected by the Federal Confidentiality of Alcohol and Drug Abuse Patient Records regulations: The Federal rules restrict any use of the information to criminally investigate or prosecute any alcohol or drug abuse patient.[facility] SystemIn the event this information is protected by the Federal Confidentiality of Alcohol and Drug Abuse Patient Records regulations: The Federal rules restrict any use of the information to criminally investigate or prosecute any alcohol or drug abuse patient.[facility] SystemIn the event this information is protected by the Federal Confidentiality of Alcohol and Drug Abuse Patient Records regulations: The Federal rules restrict any use of the information to criminally investigate or prosecute any alcohol or drug abuse patient.[facility] SystemIn the event this information is protected by the Federal Confidentiality of Alcohol and Drug Abuse Patient Records regulations: The Federal rules restrict any use of the information to criminally investigate or prosecute any alcohol or drug abuse patient.[facility] SystemIn the event this information is protected by the Federal Confidentiality of Alcohol and Drug Abuse Patient Records regulations: The Federal rules restrict any use of the information to criminally investigate or prosecute any alcohol or drug abuse patient.[facility] SystemIn the event this information is protected by the Federal Confidentiality of Alcohol and Drug Abuse Patient Records regulations: The Federal rules restrict any use of the information to criminally investigate or prosecute any alcohol or drug abuse patient.[facility] SystemIn the event this information is protected by the Federal Confidentiality of Alcohol and Drug Abuse Patient Records regulations: The Federal rules restrict any use of the information to criminally investigate or prosecute any alcohol or drug abuse patient.[facility] SystemIn the event this information is protected by the Federal Confidentiality of Alcohol and Drug Abuse Patient Records regulations: The Federal rules restrict any use of the information to criminally investigate or prosecute any alcohol or drug abuse patient.[facility] SystemIn the event this information is protected by the Federal Confidentiality of Alcohol and Drug Abuse Patient Records regulations: The Federal rules restrict any use of the information to criminally investigate or prosecute any alcohol or drug abuse patient.[facility] SystemIn the event this information is protected by the Federal Confidentiality of Alcohol and Drug Abuse Patient Records regulations: The Federal rules restrict any use of the information to criminally investigate or prosecute any alcohol or drug abuse patient.[facility]In the event this information is protected by the Federal Confidentiality of Alcohol and Drug Abuse Patient Records regulations: The Federal rules restrict any use of the information to criminally investigate or prosecute any alcohol or drug abuse patient.[facility]In the event this information is protected by the Federal Confidentiality of Alcohol and Drug Abuse Patient Records regulations: The Federal rules restrict any use of the information to criminally investigate or prosecute any alcohol or drug abuse patient.[facility]In the event this information is protected by the Federal Confidentiality of Alcohol and Drug Abuse Patient Records regulations: The Federal rules restrict any use of the information to criminally investigate or prosecute any alcohol or drug abuse patient.[facility]In the event this information is protected by the Federal Confidentiality of Alcohol and Drug Abuse Patient Records regulations: The Federal rules restrict any use of the information to criminally investigate or prosecute any alcohol or drug abuse patient.[facility]In the event this information is protected by the Federal Confidentiality of Alcohol and Drug Abuse Patient Records regulations: The Federal rules restrict any use of the information to criminally investigate or prosecute any alcohol or drug abuse patient.[facility]In the event this information is protected by the Federal Confidentiality of Alcohol and Drug Abuse Patient Records regulations: The Federal rules restrict any use of the information to criminally investigate or prosecute any alcohol or drug abuse patient.[facility]In the event this information is protected by the Federal Confidentiality of Alcohol and Drug Abuse Patient Records regulations: The Federal rules restrict any use of the information to criminally investigate or prosecute any alcohol or drug abuse patient.[facility]In the event this information is protected by the Federal Confidentiality of Alcohol and Drug Abuse Patient Records regulations: The Federal rules restrict any use of the information to criminally investigate or prosecute any alcohol or drug abuse patient.[facility]In the event this information is protected by the Federal Confidentiality of Alcohol and Drug Abuse Patient Records regulations: The Federal rules restrict any use of the information to criminally investigate or prosecute any alcohol or drug abuse patient.[facility]In the event this information is protected by the Federal Confidentiality of Alcohol and Drug Abuse Patient Records regulations: The Federal rules restrict any use of the information to criminally investigate or prosecute any alcohol or drug abuse patient.[facility]In the event this information is protected by the Federal Confidentiality of Alcohol and Drug Abuse Patient Records regulations: The Federal rules restrict any use of the information to criminally investigate or prosecute any alcohol or drug abuse patient.[facility]In the event this information is protected by the Federal Confidentiality of Alcohol and Drug Abuse Patient Records regulations: The Federal rules restrict any use of the information to criminally investigate or prosecute any alcohol or drug abuse patient.[facility]In the event this information is protected by the Federal Confidentiality of Alcohol and Drug Abuse Patient Records regulations: The Federal rules restrict any use of the information to criminally investigate or prosecute any alcohol or drug abuse patient.[facility]In the event this information is protected by the Federal Confidentiality of Alcohol and Drug Abuse Patient Records regulations: The Federal rules restrict any use of the information to criminally investigate or prosecute any alcohol or drug abuse patient.[facility]In the event this information is protected by the Federal Confidentiality of Alcohol and Drug Abuse Patient Records regulations: The Federal rules restrict any use of the information to criminally investigate or prosecute any alcohol or drug abuse patient.[facility]In the event this information is protected by the Federal Confidentiality of Alcohol and Drug Abuse Patient Records regulations: The Federal rules restrict any use of the information to criminally investigate or prosecute any alcohol or drug abuse patient.[facility]In the event this information is protected by the Federal Confidentiality of Alcohol and Drug Abuse Patient Records regulations: The Federal rules restrict any use of the information to criminally investigate or prosecute any alcohol or drug abuse patient.[facility]In the event this information is protected by the Federal Confidentiality of Alcohol and Drug Abuse Patient Records regulations: The Federal rules restrict any use of the information to criminally investigate or prosecute any alcohol or drug abuse patient.[facility]In the event this information is protected by the Federal Confidentiality of Alcohol and Drug Abuse Patient Records regulations: The Federal rules restrict any use of the information to criminally investigate or prosecute any alcohol or drug abuse patient.[facility]In the event this information is protected by the Federal Confidentiality of Alcohol and Drug Abuse Patient Records regulations: The Federal rules restrict any use of the information to criminally investigate or prosecute any alcohol or drug abuse patient.[facility]In the event this information is protected by the Federal Confidentiality of Alcohol and Drug Abuse Patient Records regulations: The Federal rules restrict any use of the information to criminally investigate or prosecute any alcohol or drug abuse patient.[facility]In the event this information is protected by the Federal Confidentiality of Alcohol and Drug Abuse Patient Records regulations: The Federal rules restrict any use of the information to criminally investigate or prosecute any alcohol or drug abuse patient.[facility]In the event this information is protected by the Federal Confidentiality of Alcohol and Drug Abuse Patient Records regulations: The Federal rules restrict any use of the information to criminally investigate or prosecute any alcohol or drug abuse patient.[facility]In the event this information is protected by the Federal Confidentiality of Alcohol and Drug Abuse Patient Records regulations: The Federal rules restrict any use of the information to criminally investigate or prosecute any alcohol or drug abuse patient.[facility]In the event this information is protected by the Federal Confidentiality of Alcohol and Drug Abuse Patient Records regulations: The Federal rules restrict any use of the information to criminally investigate or prosecute any alcohol or drug abuse patient.[facility]In the event this information is protected by the Federal Confidentiality of Alcohol and Drug Abuse Patient Records regulations: The Federal rules restrict any use of the information to criminally investigate or prosecute any alcohol or drug abuse patient.[facility]In the event this information is protected by the Federal Confidentiality of Alcohol and Drug Abuse Patient Records regulations: The Federal rules restrict any use of the information to criminally investigate or prosecute any alcohol or drug abuse patient.[facility]In the event this information is protected by the Federal Confidentiality of Alcohol and Drug Abuse Patient Records regulations: The Federal rules restrict any use of the information to criminally investigate or prosecute any alcohol or drug abuse patient.[facility]In the event this information is protected by the Federal Confidentiality of Alcohol and Drug Abuse Patient Records regulations: The Federal rules restrict any use of the information to criminally investigate or prosecute any alcohol or drug abuse patient.[facility]In the event this information is protected by the Federal Confidentiality of Alcohol and Drug Abuse Patient Records regulations: The Federal rules restrict any use of the information to criminally investigate or prosecute any alcohol or drug abuse patient.[facility]In the event this information is protected by the Federal Confidentiality of Alcohol and Drug Abuse Patient Records regulations: The Federal rules restrict any use of the information to criminally investigate or prosecute any alcohol or drug abuse patient.[facility]In the event this information is protected by the Federal Confidentiality of Alcohol and Drug Abuse Patient Records regulations: The Federal rules restrict any use of the information to criminally investigate or prosecute any alcohol or drug abuse patient.[facility]In the event this information is protected by the Federal Confidentiality of Alcohol and Drug Abuse Patient Records regulations: The Federal rules restrict any use of the information to criminally investigate or prosecute any alcohol or drug abuse patient.[facility]In the event this information is protected by the Federal Confidentiality of Alcohol and Drug Abuse Patient Records regulations: The Federal rules restrict any use of the information to criminally investigate or prosecute any alcohol or drug abuse patient.[facility]In the event this information is protected by the Federal Confidentiality of Alcohol and Drug Abuse Patient Records regulations: The Federal rules restrict any use of the information to criminally investigate or prosecute any alcohol or drug abuse patient.[facility]In the event this information is protected by the Federal Confidentiality of Alcohol and Drug Abuse Patient Records regulations: The Federal rules restrict any use of the information to criminally investigate or prosecute any alcohol or drug abuse patient.[facility]In the event this information is protected by the Federal Confidentiality of Alcohol and Drug Abuse Patient Records regulations: The Federal rules restrict any use of the information to criminally investigate or prosecute any alcohol or drug abuse patient.[facility]In the event this information is protected by the Federal Confidentiality of Alcohol and Drug Abuse Patient Records regulations: The Federal rules restrict any use of the information to criminally investigate or prosecute any alcohol or drug abuse patient.[facility]In the event this information is protected by the Federal Confidentiality of Alcohol and Drug Abuse Patient Records regulations: The Federal rules restrict any use of the information to criminally investigate or prosecute any alcohol or drug abuse patient.[facility]In the event this information is protected by the Federal Confidentiality of Alcohol and Drug Abuse Patient Records regulations: The Federal rules restrict any use of the information to criminally investigate or prosecute any alcohol or drug abuse patient.[facility]In the event this information is protected by the Federal Confidentiality of Alcohol and Drug Abuse Patient Records regulations: The Federal rules restrict any use of the information to criminally investigate or prosecute any alcohol or drug abuse patient.[facility]In the event this information is protected by the Federal Confidentiality of Alcohol and Drug Abuse Patient Records regulations: The Federal rules restrict any use of the information to criminally investigate or prosecute any alcohol or drug abuse patient.[facility]In the event this information is protected by the Federal Confidentiality of Alcohol and Drug Abuse Patient Records regulations: The Federal rules restrict any use of the information to criminally investigate or prosecute any alcohol or drug abuse patient.[facility]In the event this information is protected by the Federal Confidentiality of Alcohol and Drug Abuse Patient Records regulations: The Federal rules restrict any use of the information to criminally investigate or prosecute any alcohol or drug abuse patient.[facility]In the event this information is protected by the Federal Confidentiality of Alcohol and Drug Abuse Patient Records regulations: The Federal rules restrict any use of the information to criminally investigate or prosecute any alcohol or drug abuse patient.[facility]In the event this information is protected by the Federal Confidentiality of Alcohol and Drug Abuse Patient Records regulations: The Federal rules restrict any use of the information to criminally investigate or prosecute any alcohol or drug abuse patient.[facility]In the event this information is protected by the Federal Confidentiality of Alcohol and Drug Abuse Patient Records regulations: The Federal rules restrict any use of the information to criminally investigate or prosecute any alcohol or drug abuse patient.[facility]In the event this information is protected by the Federal Confidentiality of Alcohol and Drug Abuse Patient Records regulations: The Federal rules restrict any use of the information to criminally investigate or prosecute any alcohol or drug abuse patient.[facility]In the event this information is protected by the Federal Confidentiality of Alcohol and Drug Abuse Patient Records regulations: The Federal rules restrict any use of the information to criminally investigate or prosecute any alcohol or drug abuse patient.[facility]In the event this information is protected by the Federal Confidentiality of Alcohol and Drug Abuse Patient Records regulations: The Federal rules restrict any use of the information to criminally investigate or prosecute any alcohol or drug abuse patient.[facility]In the event this information is protected by the Federal Confidentiality of Alcohol and Drug Abuse Patient Records regulations: The Federal rules restrict any use of the information to criminally investigate or prosecute any alcohol or drug abuse patient.[facility]In the event this information is protected by the Federal Confidentiality of Alcohol and Drug Abuse Patient Records regulations: The Federal rules restrict any use of the information to criminally investigate or prosecute any alcohol or drug abuse patient.[facility]In the event this information is protected by the Federal Confidentiality of Alcohol and Drug Abuse Patient Records regulations: The Federal rules restrict any use of the information to criminally investigate or prosecute any alcohol or drug abuse patient.[facility]In the event this information is protected by the Federal Confidentiality of Alcohol and Drug Abuse Patient Records regulations: The Federal rules restrict any use of the information to criminally investigate or prosecute any alcohol or drug abuse patient.[facility]In the event this information is protected by the Federal Confidentiality of Alcohol and Drug Abuse Patient Records regulations: The Federal rules restrict any use of the information to criminally investigate or prosecute any alcohol or drug abuse patient.[facility]In the event this information is protected by the Federal Confidentiality of Alcohol and Drug Abuse Patient Records regulations: The Federal rules restrict any use of the information to criminally investigate or prosecute any alcohol or drug abuse patient.[facility] SystemIn the event this information is protected by the Federal Confidentiality of Alcohol and Drug Abuse Patient Records regulations: The Federal rules restrict any use of the information to criminally investigate or prosecute any alcohol or drug abuse patient.[facility] SystemIn the event this information is protected by the Federal Confidentiality of Alcohol and Drug Abuse Patient Records regulations: The Federal rules restrict any use of the information to criminally investigate or prosecute any alcohol or drug abuse patient.[facility] SystemIn the event this information is protected by the Federal Confidentiality of Alcohol and Drug Abuse Patient Records regulations: The Federal rules restrict any use of the information to criminally investigate or prosecute any alcohol or drug abuse patient.[facility] SystemIn the event this information is protected by the Federal Confidentiality of Alcohol and Drug Abuse Patient Records regulations: The Federal rules restrict any use of the information to criminally investigate or prosecute any alcohol or drug abuse patient.[facility] SystemIn the event this information is protected by the Federal Confidentiality of Alcohol and Drug Abuse Patient Records regulations: The Federal rules restrict any use of the information to criminally investigate or prosecute any alcohol or drug abuse patient.[facility] SystemIn the event this information is protected by the Federal Confidentiality of Alcohol and Drug Abuse Patient Records regulations: The Federal rules restrict any use of the information to criminally investigate or prosecute any alcohol or drug abuse patient.[facility] SystemIn the event this information is protected by the Federal Confidentiality of Alcohol and Drug Abuse Patient Records regulations: The Federal rules restrict any use of the information to criminally investigate or prosecute any alcohol or drug abuse patient.[facility] SystemIn the event this information is protected by the Federal Confidentiality of Alcohol and Drug Abuse Patient Records regulations: The Federal rules restrict any use of the information to criminally investigate or prosecute any alcohol or drug abuse patient.[facility] Goals (unrecognized section and content) Goals may be documented in a n alternate sectionGoals may be documented in an alternate section FOR RECORDS PERTAINING TO PATIENTS WHO ARE OR HAVE BEEN ENROLLED IN A CHEMICAL DEPENDENCY/SUBSTANCEABUSE PROGRAM, SOME INFORMATION MAY BE OMITTED. This clinical summary was aggregated from multiple sources. Caution should be exercised in using it in the provision of clinical care. This summary normalizes information from multiple sources, and as a consequence, information in this document may materially change the coding, format and clinical context of patient data. In addition, data may be omitted in some cases. CLINICAL DECISIONS SHOULD BE BASED ON THE PRIMARY CLINICAL RECORDS. [facility]. provides no warranty or guarantee of the accuracy or completeness of information in this document.
[2025-01-10] VITALS (10 sets, daily range): BP systolic 100–129; BP diastolic 50–57; PULSE 67–78; RESP 19–29; TEMP 36.3–36.4; O2SAT 92–99; BMI 26.4
[2025-01-10 02:10] LABS: Mucous, Urine 0 SEEN /hpf (<or=2+); Red Blood Cells-Urine 0 SEEN /hpf (0-5)
[2025-01-10 02:13] LABS: Color, Urine Yellow (Yellow); Glucose, Dipstick Normal (Normal); Ketone-Dipstick Negative (Negative); Leukocyte Esterase-Dipstick Negative /ul (Negative); Nitrite-Dipstick Negative (Negative); Occult Blood-Urine Negative /ul (Negative); Protein-Dipstick 15 mg/dl (Negative); Specific Gravity, Urine 1.010 (1.002-1.030); Urine Bilirubin Dipstick Negative (Negative)
[2025-01-10 02:21] LABS: Squamous Epithelial Cells - UA 0-5 SEEN /hpf (0-5)
[2025-01-10] MEDS: Vancomycin HCl 750 MG in 0.9% Normal Saline (250mL Bag) 250 ML 250 MG IV (03:21)
[2025-01-10] MEDS: Piperacil/Tazobactam 3.375 GM in 0.9% Normal Saline (50mL MB+) 50 ML IV (05:23)
[2025-01-10] MEDS: 0.9% Saline Lock 10 ML Syringe IV (05:24)
[2025-01-10 05:55] LABS: Hematocrit 20.8 % (40-54); Hemoglobin 6.3 g/dL (13.0-16.5); Immature Granulocytes Count 0.280 X10^3/uL (0.0-0.0); Mean Corp Hgb Conc 30.3 g/dL (32-36); Mean Corpuscular Volume 90.4 fL (80-94); Mean Platelet Vol. 9.5 fl (6.2-12.0); NRBC Flagged by Analyzer 0.1 % (0-5); POSITIVE MORPHOLOGY YES; Platelet Count 272 K/mm3 (150-450); RBC Distribution Width CV 21.1 % (11.6-14.6); RBC Distribution Width SD 67.3 fl (35.1-43.9); Red Blood Count 2.30 M/mm3 (4.6-6.2); White Blood Count 13.8 K/mm3 (4.4-11.0)
[2025-01-10 05:58] LABS: Differential Indicated SCAN CRITERIA MET
[2025-01-10 06:25] LABS: Anion Gap 9 (5-15); BUN 13 mg/dL (4-19); BUN/Creat Ratio 16.4 RATIO (10-20); Calcium,Total 7.9 mg/dL (7.6-11.0); Carbon Dioxide 23.7 mmol/L (21.0-32.0); Chloride 106 mmol/L (98-108); Estimated Creatinine Clearance 72.30 ml/min (50-250); Glucose 41 mg/dL (70-99); Potassium 3.0 mmol/L (3.3-5.1)
[2025-01-10 06:43] LABS: Differential Comment SCANNED
[2025-01-10 06:44] LABS: Acanthocytes RARE; Anisocytosis 2+; Bite Cell RARE; Macrocytosis 1+; Microcytosis 1+; Schistocytes RARE
--- NOTE | 2025-01-10 06:53 | EX.PCM.CONCC ---
Assessment & Plan Assessment/Plan (1) Anemia: PLAN: Plan RECOMMENDATIONS: 1. Transfuse 1 additional unit of packed red blood cells. 2. Transition to Levaquin to complete 7 days of therapy. 3. No additional intervention or workup, per patient request. 4. CODE STATUS has been updated based upon discussion with the patient. 5. Outpatient follow-up with hospice care services next week. 6. Will sign off from a critical care perspective. IMPRESSIONS: 1. Shortness of breath Most likely secondary to presenting anemia with questionable pneumonia on chest imaging. I do not feel that the patient is septic. I do believe that his hypotension was likely the consequence of volume depletion and anemia. The patient understands that he has an incurable disease in the form of metastatic colon cancer, and at this time, does not wish to pursue any additional intervention or workup. The patient is agreeable to receiving 1 additional unit of packed red blood cells, after which time, he is requesting to be discharged home. The patient indicated that he is scheduled to be seen by palliative/hospice care services next week. From my perspective, the patient can be transitioned to Levaquin to complete 7 days of therapy. 2. History of anemia/metastatic colon cancer/diabetes mellitus/GERD/obstructive sleep apnea Complicates care, management, recovery and prognosis. Continue supportive measures as noted above. CODE STATUS to be updated to DNR comfort care, per patient request. The patient is requesting discharge home today and does not want any additional workup or intervention at this time. This note was generated with [employer] dictation software. It may contain incorrect words, spelling, and punctuation that were not noted in checking the note before signing. HPI Consult Data Date of Consult: 01/10/25 HPI Narrative Reason for Consultation: Anemia HPI Narrative: The patient is a 79-year-old male, with a history as outlined below, who presented to the emergency department on January 09 with shortness of breath. The patient had been referred to the emergency department for evaluation by his primary care provider over concerns for underlying pneumonia. The patient has a known history of metastatic colon cancer, which was previously being treated with chemotherapy under the discretion of Dr. Moran of oncology. However, due to the advanced nature of his disease, coupled with the side effects of the chemotherapy, the patient decided to discontinue therapy approximately 3 weeks ago. He does report an associated cough that has been productive of clear sputum. On presentation to the emergency department, the patient was documented to be afebrile and hemodynamically stable. Laboratory evaluation revealed a white blood cell count of 13,000 with a hemoglobin of 5.9 g/dL. Coagulation profile was notable for an INR of 1.3. Chemistry profile was unremarkable. Lactate was within normal limits. Total bilirubin was normal. Urine analysis was unremarkable. Chest x-ray was notable for pulmonary metastatic disease with questionable left lower lobe infiltrate. The patient was subsequently placed on antimicrobials and IV fluids. The patient was transfused 1 unit of packed red blood cells. Overnight, the patient has remained hemodynamically stable. This morning, the patient was still noted to be anemic with a hemoglobin of 6.3 g/dL. Stool for occult blood was negative. I did have a very murray discussion with the patient this morning regarding his CODE STATUS and overall goals of care. He indicated to me that he is scheduled to be seen by hospice care services next week. He is not currently interested in pursuing any additional intervention or workup. He understands that he has an underlying incurable disease and indicated that his goal to be discharged home today. He indicated that he is okay with receiving 1 more unit of packed red blood cells, but then would like to be discharged afterwards. Ultimately, the patient's wishes are to be made comfort care. [facility] Medical History Sleep apnea Colon cancer GERD (gastroesophageal reflux disease) High cholesterol HTN (hypertension) Home Medications ?Medication ?Instructions ?Recorded ?Last Taken ?Type aspirin 81 mg tablet,delayed 81 mg PO DAILY 01/07/22 01/08/25 History release glimepiride 4 mg tablet 4 mg PO DAILY 01/07/22 01/09/25 History omeprazole 40 mg capsule,delayed 40 mg PO DAILY 01/07/22 01/08/25 History release pioglitazone 30 mg tablet 30 mg PO DAILY 01/07/22 01/08/25 History rosuvastatin 10 mg tablet 10 mg PO DAILY 01/07/22 01/09/25 History mometasone 50 mcg/actuation nasal 2 spray intranasal DAILY 02/01/24 01/08/25 History spray ondansetron HCl 8 mg tablet 8 mg PO Q8H PRN nausea and vomiting 02/01/24 Unknown History prochlorperazine maleate 10 mg 10 mg PO Q6H PRN nausea and 02/01/24 Unknown History tablet vomiting zolpidem 10 mg tablet 10 mg PO QHS PRN PRN sleep 02/01/24 Unknown History insulin glargine 100 unit/mL (3 20 unit subcut DAILY 11/24/24 Unknown History mL) subcutaneous pen (Lantus Solostar U-100 Insulin) acyclovir 400 mg tablet 400 mg PO BID 01/09/25 01/09/25 History amoxicillin 875 mg-potassium 1 tab PO BID 01/09/25 Unknown History clavulanate 125 mg tablet azithromycin 250 mg tablet 250 mg PO UD 01/09/25 Unknown History hydrochlorothiazide 12.5 mg tablet 12.5 mg PO DAILY 01/09/25 01/09/25 History magnesium chloride 71.5 mg 71.5 mg PO BID 01/09/25 01/09/25 History (magnesium chloride) tablet,delayed release (Slow-Mag) mirtazapine 15 mg tablet 15 mg PO QHS 01/09/25 Unknown History potassium chloride 10 mEq 10 meq PO BID 01/09/25 01/09/25 History tablet,extended release Allergy/AdvReac Type Severity Reaction Status Date / Time lisinopril Allergy Severe Angioedema Verified 01/09/25 13:14 metformin Allergy Upset Verified 01/09/25 13:14 Stomach Surgical History History of ankle surgery History of knee replacement History of appendectomy History of colon resection Social History housing: house Smoking Status: Former smoker ROS ROS Narrative 10 systems were reviewed with pertinent positives as noted in the HPI above. Physical Exam Const alert, oriented x3 and no apparent distress General Appearance: cooperative HEENT normocephalic, head/scalp atraumatic and moist oral mucous membranes Eyes PERRL, EOMs intact bilaterally and conjunctivae normal Neck supple General: trachea midline Chest inspection of chest normal Resp normal respiratory effort Auscultation: Negative for rales, rhonchi or wheezes Cardio regular rate and regular rhythm GI normal to inspection, nondistended, normoactive bowel sounds Extremity no clubbing, cyanosis or edema Skin no rashes or lesions noted Neuro CN's II-XII intact bilaterally, moves all extremities and no focal motor deficits Psych cooperative and affect normal Lab / Micro Data 01/10/25 05:30 01/10/25 05:30 Labs: Laboratory Results - last 24 hr 01/09/25 14:08: WBC 13.7 H, RBC 2.19 L, Hgb 5.9 L*, Hct 19.8 L, MCV 90.4, MCH 26.9 L, MCHC 29.8 L, RDW Std Deviation 69.5 H, RDW Coeff of Micky 21.6 H, Plt Count 280, MPV 9.8, Immature Gran % (Auto) 1.200 H, Neut % (Auto) 87.1 H, Lymph % (Auto) 6.0 L, [place] % (Auto) 5.3, Eos % (Auto) 0.1, Baso % (Auto) 0.3, Absolute Neuts (auto) 11.9 H, Absolute Lymphs (auto) 0.82 L, Nucleated RBC % 0, Differential Comment SCANNED, Platelet Estimate ADEQUATE, Polychromasia 1+, Hypochromasia 2+, Anisocytosis 2+, PT 16.4 H, INR 1.3, APTT 39.6 H, Sodium 133, Potassium 3.6, Chloride 96 L, Carbon Dioxide 26.0, Anion Gap 11, BUN 19, Creatinine 1.05, Estim Creat Clear Calc 55.08, Est GFR (MDRD) Non-Af 73, BUN/Creatinine Ratio 17.7, Glucose 177 H, Lactic Acid 1.4, Calcium 8.5, Magnesium 2.2, Total Bilirubin 0.93, AST 29, ALT 14, Alkaline Phosphatase 130 H, Total Creatine Kinase 24, Total Protein 7.5, Albumin 2.4 L, Globulin 5.1 H, Albumin/Globulin Ratio 0.5 L 01/09/25 17:30: MRSA (PCR) Negative 01/09/25 18:50: Blood Type O POSITIVE, Antibody Screen NEGATIVE, Crossmatch See Detail 01/10/25 02:00: Urine Color Yellow, Urine Clarity Clear, Urine pH 6.0, Ur Specific [place] 1.010, Urine Protein 15 H, Urine Glucose (UA) Normal, Urine Ketones Negative, Urine Occult Blood Negative, Urine Nitrite Negative, Urine Bilirubin Negative, Urine Urobilinogen 4 H, Ur Leukocyte Esterase Negative, Urine RBC 0 SEEN, Urine WBC 0 SEEN, Ur Squamous Epith Cells 0-5 SEEN, Urine Bacteria 1+, Urine Mucus 0 SEEN 01/10/25 05:30: WBC 13.8 H, RBC 2.30 L, Hgb 6.3 L, Hct 20.8 L, MCV 90.4, MCH 27.4, MCHC 30.3 L, RDW Std Deviation 67.3 H, RDW Coeff of Micky 21.1 H, Plt Count 272, MPV 9.5, Immature Gran % (Auto) 2.000 H, Neut % (Auto) 84.8 H, Lymph % (Auto) 6.9 L, [place] % (Auto) 4.9, Eos % (Auto) 1.0, Baso % (Auto) 0.4, Absolute Neuts (auto) 11.7 H, Absolute Lymphs (auto) 0.95, Nucleated RBC % 0.1, Differential Comment SCANNED, Platelet Estimate ADEQUATE, Anisocytosis 2+, Microcytosis 1+, Macrocytosis 1+, Ovalocytes 1+, Bite Cells RARE, Acanthocytes (Spur) RARE, Schistocytes RARE, Sodium 139, Potassium 3.0 L, Chloride 106, Carbon Dioxide 23.7, Anion Gap 9, BUN 13, Creatinine 0.78, Estim Creat Clear Calc 72.30, Est GFR (MDRD) Non-Af 92, BUN/Creatinine Ratio 16.4, Glucose 41 L*, Calcium 7.9 Micro: Microbiology 01/09/25 19:40 Urine, Clean Catch Legionella Antigen - Final 01/09/25 19:40 Urine, Clean Catch Streptococcus pneumoniae Antigen (M - Final 01/09/25 17:30 Mucosa - Nose SARS-CoV-2, Influenza & RSV (PCR) - Final 01/09/25 15:20 Stool Stool Occult Blood (JANNIE) - Final 01/09/25 13:40 Mucosa - Nose SARS-CoV-2, Influenza & RSV (PCR) - Final Charges/Coding Visit Charges Inpatient E&M: 91760 Init Hosp L3
--- NOTE | 2025-01-10 08:00 | DCINST_ITS ---
Discharge Instructions DC O2, CPAP, BIPAP needs Home O2 Discharge instructions: No Dressing / Incision Discharge Activity: Return to Normal Activity Weight Bearing Status: Full weight bearing Follow Up Care Test Results: Test results from this visit will be discussed in further detail at your follow- up appointment, if applicable. Discharge Plan Admission Admit Date/Time: 01/09/25 16:35 Primary Reason for Your Visit: anemia, pneumonia Attending Provider: Reynold Ty Primary Care Provider: Chaitanya Mazariegos Consulting Providers: Darin Younger; Cesar Adair; Kalin Cobos; Gordo Chaves; Polo Torres; Barrett Brink; Fab Zarate; Ketty Napoles; Parminder Carroll; Socrates Christensen; Marco Antonio Churchill; Angela Ann; Sindhu Banks; Nicky Zavala; Lex Barillas; Bj Fisher; Kyle Siddiqi; Eddie Acosta; Felipa Christianson; Jam Lewis; Richy Sales; Nile Levy; Wisam Fermin; Srinivasan Baker Discharge Orders/Prescriptions Prescriptions: Continued omeprazole 40 mg Capsule,Delayed Release(Dr/Ec) 40 mg PO DAILY aspirin 81 mg Tablet,Delayed Release (Dr/Ec) 81 mg PO DAILY glimepiride 4 mg Tablet 4 mg PO DAILY Patient Comments: was told today by Dr Mazariegos to stop taking pioglitazone 30 mg Tablet 30 mg PO DAILY rosuvastatin 10 mg Tablet 10 mg PO DAILY insulin glargine [Lantus Solostar U-100 Insulin] 100 unit/mL (3 mL) insulin pen 20 unit SUBCUT DAILY Patient Comments: USE 20 UNITS SUBCUTANEOUSLY ONCE A DAY IF SUGAR LEVELS ARE OVER 200 IN THE MORNING BEFORE BREAKFAST states hasn't had insulin since he had chemo potassium chloride 10 mEq tablet extended release 10 meq PO BID acyclovir 400 mg tablet 400 mg PO BID hydrochlorothiazide 12.5 mg tablet 12.5 mg PO DAILY Slow-Mag 71.5 mg tablet,delayed release (DR/EC) 71.5 mg PO BID azithromycin 250 mg tablet 250 mg PO UD Patient Comments: has not started yet mirtazapine 15 mg tablet 15 mg PO QHS amoxicillin-pot clavulanate 875-125 mg tablet 1 tab PO BID Patient Comments: has not started yet ondansetron HCl 8 mg tablet 8 mg PO Q8H PRN (Reason: nausea and vomiting) Patient Comments: TAKE 1 TABLET BY MOUTH EVERY 8 HOURS NEEDED FOR NAUSEA AND VOMITING prochlorperazine maleate 10 mg tablet 10 mg PO Q6H PRN (Reason: nausea and vomiting) Patient Comments: TAKE 1 TABLET BY MOUTH EVERY 6 HOURS NEEDED mometasone 50 mcg/actuation spray,non-aerosol 2 spray INTRANASAL DAILY Patient Comments: USE 1 SPRAY(S) IN EACH NOSTRIL TWICE DAILY zolpidem 10 mg tablet 10 mg PO QHS PRN PRN (Reason: sleep) Patient Comments: TAKE 1 TABLET BY MOUTH AT BEDTIME Referrals / Follow Up: Chaitanya Mazareigos MD [Primary Care Provider] - Chris Moran DO [Med Staff - Active Staff] - See Referral Note (As scheduled) Disposition Disposition (needs filled in before D/C Order can be placed): Home, Self Care
--- NOTE | 2025-01-10 08:03 | DS.PCM_ITS ---
Providers Date of Admission: 01/09/25 Date of Discharge: 01/10/25 Primary Care Physician: Dr. Chaitanya Mazariegos MD Consultations 01/09/25 16:43 Consult: A And P Technician / Pulmonary Medicine Routine Consulting Provider: Intensivists/Pulmonary Med Reason for Consult: CONCERN of sepsis EMERGENT Consult: No MD Notified: Yes Date Notified: 01/09/25 Time Notified: 16:43 Method of Notification: Text Reason For Visit: PNEUMONIA, LOW BP Diagnosis Discharge Diagnosis (1) Anemia: Status: Acute Code(s): D64.9 - Anemia, unspecified Plan 1. Left lower lobe pneumonia #2 anemia secondary to chemotherapy for colon cancer #3 metastatic colon cancer #4 type 2 diabetes Medications at Discharge Home Medications aspirin 81 mg tablet,delayed release 81 mg PO DAILY 01/07/22 glimepiride 4 mg tablet 4 mg PO DAILY 01/07/22 omeprazole 40 mg capsule,delayed release 40 mg PO DAILY 01/07/22 pioglitazone 30 mg tablet 30 mg PO DAILY 01/07/22 rosuvastatin 10 mg tablet 10 mg PO DAILY 01/07/22 mometasone 50 mcg/actuation nasal spray 2 spray intranasal DAILY 02/01/24 ondansetron HCl 8 mg tablet 8 mg PO Q8H PRN nausea and vomiting 02/01/24 prochlorperazine maleate 10 mg tablet 10 mg PO Q6H PRN nausea and vomiting 02/01/24 zolpidem 10 mg tablet 10 mg PO QHS PRN PRN sleep 02/01/24 insulin glargine 100 unit/mL (3 mL) subcutaneous pen (Lantus Solostar U-100 Insulin) 20 unit subcut DAILY 11/24/24 acyclovir 400 mg tablet 400 mg PO BID 01/09/25 amoxicillin 875 mg-potassium clavulanate 125 mg tablet 1 tab PO BID 01/09/25 azithromycin 250 mg tablet 250 mg PO UD 01/09/25 hydrochlorothiazide 12.5 mg tablet 12.5 mg PO DAILY 01/09/25 magnesium chloride 71.5 mg (magnesium chloride) tablet,delayed release (Slow- Mag) 71.5 mg PO BID 01/09/25 mirtazapine 15 mg tablet 15 mg PO QHS 01/09/25 potassium chloride 10 mEq tablet,extended release 10 meq PO BID 07/14/25 Hospital Course Operations None Procedures None and Blood transfusion Summary of Care Provided Minutes Spent on Discharge: 30 Hospital Course: This 79-year-old white male was seen in the emergency room at [facility] with chief complaint of shortness of breath and cough, he had been recently discharged from the hospital in [facility] after treatment for dehydration. Patient has a history of metastatic colon cancer with metastatic disease spread to the lungs and liver. Labs in the emergency room revealed a low hemoglobin at 5.9, white blood cell count was elevated, patient did not require supplemental oxygen. Chest x-ray showed bilateral infiltrates. Patient was admitted to ICU and given 1 unit of packed red blood cells, the following day the patient requested discharge to home, he had a prescription for Zithromax and Augmentin as an outpatient which he had not started. On 01/10/2025, patient was seen and examined: On examination he appeared in good health and spirits. Vital signs as documented. Skin warm and dry and without overt rashes. Neck without JVD, neck was supple, trachea midline, thyroid was normal. Lungs clear bilaterally, normal air movement was noted. Heart exam notable for regular rhythm, normal sounds and absence of murmurs, rubs or gallops. Abdomen unremarkable and without evidence of organomegaly, masses, or abdominal aortic enlargement. Bowel sounds are present, abdomen is not distended. Extremities nonedematous, no cyanosis was noted, no clubbing was noted. Neuro: Cranial nerves II through XII are grossly intact, no focal motor deficits were noted, sensation to light touch and pinprick intact, motor exam 5/5 throughout. Psych: Patient is alert and oriented x3, he does not appear anxious or depressed, he does not appear agitated. Patient was discharged home in stable condition on 01/10/2025. Weight / BMI Weight Weight: 76.3 kg Body Mass Index (BMI) 26.4 ABG / Lab / Microbiology Data 01/10/25 05:30 01/10/25 05:30 Laboratory: Laboratory Results - last 24 hr 01/09/25 14:08: WBC 13.7 H, RBC 2.19 L, Hgb 5.9 L*, Hct 19.8 L, MCV 90.4, MCH 26.9 L, MCHC 29.8 L, RDW Std Deviation 69.5 H, RDW Coeff of Micky 21.6 H, Plt Count 280, MPV 9.8, Immature Gran % (Auto) 1.200 H, Neut % (Auto) 87.1 H, Lymph % (Auto) 6.0 L, [place] % (Auto) 5.3, Eos % (Auto) 0.1, Baso % (Auto) 0.3, Absolute Neuts (auto) 11.9 H, Absolute Lymphs (auto) 0.82 L, Nucleated RBC % 0, Differential Comment SCANNED, Platelet Estimate ADEQUATE, Polychromasia 1+, Hypochromasia 2+, Anisocytosis 2+, PT 16.4 H, INR 1.3, APTT 39.6 H, Sodium 133, Potassium 3.6, Chloride 96 L, Carbon Dioxide 26.0, Anion Gap 11, BUN 19, Creatinine 1.05, Estim Creat Clear Calc 55.08, Est GFR (MDRD) Non-Af 73, BUN/Creatinine Ratio 17.7, Glucose 177 H, Lactic Acid 1.4, Calcium 8.5, Magnesium 2.2, Total Bilirubin 0.93, AST 29, ALT 14, Alkaline Phosphatase 130 H, Total Creatine Kinase 24, Total Protein 7.5, Albumin 2.4 L, Globulin 5.1 H, A lbumin/Globulin Ratio 0.5 L 01/09/25 17:30: MRSA (PCR) Negative 01/09/25 18:50: Blood Type O POSITIVE, Antibody Screen NEGATIVE, Crossmatch See Detail 01/10/25 02:00: Urine Color Yellow, Urine Clarity Clear, Urine pH 6.0, Ur Specific [place] 1.010, Urine Protein 15 H, Urine Glucose (UA) Normal, Urine Ketones Negative, Urine Occult Blood Negative, Urine Nitrite Negative, Urine Bilirubin Negative, Urine Urobilinogen 4 H, Ur Leukocyte Esterase Negative, Urine RBC 0 SEEN, Urine WBC 0 SEEN, Ur Squamous Epith Cells 0-5 SEEN, Urine Bacteria 1+, Urine Mucus 0 SEEN 01/10/25 05:30: WBC 13.8 H, RBC 2.30 L, Hgb 6.3 L, Hct 20.8 L, MCV 90.4, MCH 27.4, MCHC 30.3 L, RDW Std Deviation 67.3 H, RDW Coeff of Micky 21.1 H, Plt Count 272, MPV 9.5, Immature Gran % (Auto) 2.000 H, Neut % (Auto) 84.8 H, Lymph % (Auto) 6.9 L, [place] % (Auto) 4.9, Eos % (Auto) 1.0, Baso % (Auto) 0.4, Absolute Neuts (auto) 11.7 H, Absolute Lymphs (auto) 0.95, Nucleated RBC % 0.1, Differential Comment SCANNED, Platelet Estimate ADEQUATE, Anisocytosis 2+, Microcytosis 1+, Macrocytosis 1+, Ovalocytes 1+, Bite Cells RARE, Acanthocytes (Spur) RARE, Schistocytes RARE, Sodium 139, Potassium 3.0 L, Chloride 106, Carbon Dioxide 23.7, Anion Gap 9, BUN 13, Creatinine 0.78, Estim Creat Clear Calc 72.30, Est GFR (MDRD) Non-Af 92, BUN/Creatinine Ratio 16.4, Glucose 41 L*, Calcium 7.9 Microbiology: Microbiology 01/09/25 14:05 Blood Culture (Wb) - Chest Blood Culture - Final No growth in 5 days. 01/09/25 13:50 Blood Culture (Wb) - Chest Blood Culture - Final No growth in 5 days. 01/10/25 02:00 Urine, Clean Catch Urine Culture - Final Culture exhibits no growth. 01/09/25 19:40 Urine, Clean Catch Legionella Antigen - Final 01/09/25 19:40 Urine, Clean Catch Streptococcus pneumoniae Antigen (M - Final 01/09/25 17:30 Mucosa - Nose SARS-CoV-2, Influenza & RSV (PCR) - Final 01/09/25 15:20 Stool Stool Occult Blood (JANNIE) - Final 01/09/25 13:40 Mucosa - Nose SARS-CoV-2, Influenza & RSV (PCR) - Final D/C Instructions Weight Bearing Status: Full weight bearing DC O2, CPAP, BIPAP Needs Home O2 Discharge instructions: No Meaningful Use Info Meaningful Use Meaningful Use Diagnoses (Choose all that apply): None applicable Discharge Plan Admission Admit Date/Time: 01/09/25 16:35 Primary Reason for Your Visit: anemia, pneumonia Attending Provider: Reynold Ty Primary Care Provider: Chaitanya Mazariegos Consulting Providers: Darin Younger; Cesar Adair; Kalin Cobos; Gordo Chaves; Polo Torres; Barrett Brink; Fab Zarate; Ketty Napoles; Parminder Carroll; Socrates Christensen; Marco Antonio Churchill; Angela Ann; Sindhu Banks; Nicky Zavala; Lex Barillas; Bj Fisher; Kyle Siddiqi; Eddie Acosta; Felipa Christianson; Jam Lewis; Richy Sales; Nile Levy; Wisam Fermin; Srinivasan Baker Discharge Orders/Prescriptions Prescriptions: Continued omeprazole 40 mg Capsule,Delayed Release(Dr/Ec) 40 mg PO DAILY aspirin 81 mg Tablet,Delayed Release (Dr/Ec) 81 mg PO DAILY glimepiride 4 mg Tablet 4 mg PO DAILY Patient Comments: was told today by Dr Mazariegos to stop taking pioglitazone 30 mg Tablet 30 mg PO DAILY rosuvastatin 10 mg Tablet 10 mg PO DAILY insulin glargine [Lantus Solostar U-100 Insulin] 100 unit/mL (3 mL) insulin pen 20 unit SUBCUT DAILY Patient Comments: USE 20 UNITS SUBCUTANEOUSLY ONCE A DAY IF SUGAR LEVELS ARE OVER 200 IN THE MORNING BEFORE BREAKFAST states hasn't had insulin since he had chemo potassium chloride 10 mEq tablet extended release 10 meq PO BID acyclovir 400 mg tablet 400 mg PO BID hydrochlorothiazide 12.5 mg tablet 12.5 mg PO DAILY Slow-Mag 71.5 mg tablet,delayed release (DR/EC) 71.5 mg PO BID azithromycin 250 mg tablet 250 mg PO UD Patient Comments: has not started yet mirtazapine 15 mg tablet 15 mg PO QHS amoxicillin-pot clavulanate 875-125 mg tablet 1 tab PO BID Patient Comments: has not started yet ondansetron HCl 8 mg tablet 8 mg PO Q8H PRN (Reason: nausea and vomiting) Patient Comments: TAKE 1 TABLET BY MOUTH EVERY 8 HOURS NEEDED FOR NAUSEA AND VOMITING prochlorperazine maleate 10 mg tablet 10 mg PO Q6H PRN (Reason: nausea and vomiting) Patient Comments: TAKE 1 TABLET BY MOUTH EVERY 6 HOURS NEEDED mometasone 50 mcg/actuation spray,non-aerosol 2 spray INTRANASAL DAILY Patient Comments: USE 1 SPRAY(S) IN EACH NOSTRIL TWICE DAILY zolpidem 10 mg tablet 10 mg PO QHS PRN PRN (Reason: sleep) Patient Comments: TAKE 1 TABLET BY MOUTH AT BEDTIME Referrals / Follow Up: Chaitanya Mazariegos MD [Primary Care Provider] - Chris Moran DO [Med Staff - Active Staff] - See Referral Note (As scheduled) Disposition Disposition (needs filled in before D/C Order can be placed): Home, Self Care Charges/Coding Visit Charges Inpatient E&M: 29979 Disch Hosp
--- NOTE | 2025-01-10 09:22 | CASEMGMT ---
Per ICU rounds, pt is ready for DC home now. Per chart review, pt has a hospice meeting next week. ALESSANDRA CM to the pt room at this time. Pt is sitting up in bed and is A&Ox4 and is calm. Pt states that he has a hospice appt scheduled for next Thursday. Pt declines wanting the appt moved up at all. Pt states that he lives at home with his and that she will be his ride home today. Pt states that he feels safe returning home today and denies any further DC needs or concerns. SW updated and plans to call hospice to confirm appt date/time. No further needs identified at this time.
--- NOTE | 2025-01-10 10:01 | CASEMGMT ---
Social Work- RNCM reports pt plans to have hospice eval Thursday. [facility] does not have pt on schedule. Pt updated. Pt declined additional assistance. Pt d/c home today. NORI Coffey
--- NOTE | 2025-01-10 11:33 | CHAPLAIN ---
Type of Pastoral Visit _x__ Initial Visit ___ Follow-up Visit ___ On-call Visit ___ General Patient Visit ___ Spiritual Assessment ___ Family Conference ___ Bereavement ___ Rapid Response ___ Code Blue ___ Other (describe below) Pastoral Care Referral From _x__ Patient ___ Family ___ Nurse ___ Physician ___ Oil Rag Washer ___ Audit Intern ___ Other (describe below) Sacrament/Intervention _x__ Active listening ___ Anointing ___ Jain ___ Bereavement ___ Communion ___ Crystal exploration ___ ___ Life review ___ Prayer ___ Reconciliation ___ Sacrament of Sick ___ Supportive presence ___ Wedding ___ Other (describe below) Pastoral Comments patient is ready for discharge and is waiting for his ride home; pt is offered presence, support, and listening for any concerns or needs; pt indicates that he is doing fine for the situation, had a difficult experience with the change in his chemo treatments, and has made a decision to stop chemo treatments and will be consulting with hospice soon; offered to help reflect and continue processing of the situation and of his desires for his life; pt states that he is comfortable with his decision and plan of action; prayer is also offered; family members arrive at this time to take patient home; family is greeted and offered support as well
== END 2025-01-10 09:45 | disposition home or self-care (01) | DRG 811 ==
LOC: ED 16:46 → ICU 16:52
PROVIDERS: Admitting Provider Internal Medicine; Emergency Provider Emergency Medicine; PCP Family Medicine; Visit Provider Internal Medicine
DX: D64.81 Anemia due to antineoplastic chemotherapy (principal); J18.9 Pneumonia, unspecified organism; C78.01 Secondary malignant neoplasm of right lung; C78.02 Secondary malignant neoplasm of left lung; C18.0 Malignant neoplasm of cecum; C78.7 Secondary malignant neoplasm of liver and intrahepatic bile duct; Z66 Do not resuscitate; E11.9 Type 2 diabetes mellitus without complications; I10 Essential (primary) hypertension; Z79.4 Long term (current) use of insulin; E78.5 Hyperlipidemia, unspecified; K21.9 Gastro-esophageal reflux disease without esophagitis; G47.33 Obstructive sleep apnea (adult) (pediatric); I95.9 Hypotension, unspecified; T45.1X5A Adverse effect of antineoplastic and immunosuppressive drugs, initial encounter; I49.1 Atrial premature depolarization; Z79.82 Long term (current) use of aspirin; Z79.899 Other long term (current) drug therapy; Z90.49 Acquired absence of other specified parts of digestive tract; Z87.891 Personal history of nicotine dependence; Z95.9 Presence of cardiac and vascular implant and graft, unspecified; Z79.84 Long term (current) use of oral hypoglycemic drugs
CPT/HCPCS: 36591; 71045; 80048; 80053; 81001; 82274; 82550; 82962; 83605; 83735; 85025; 85610; 85730; 86850; 86900; 86901; 87040; 87086; 87449; 87631; 87641; 93005; 99285; P9016; A4216

== ENCOUNTER 2025-03-24 08:52 | Emergency (ER) | payer MEDICARE, SELFPAY ==
[2025-03-24] VITALS (27 sets, daily range): BP systolic 87–126; BP diastolic 46–71; PULSE 70–101; RESP 20–33; TEMP 36.4–37.1; O2SAT 86–100; BMI 24.3
--- NOTE | 2025-03-24 09:55 | EKG12_ITS ---
Test Reason : GENERAL Blood Pressure : */* mmHG Vent. Rate : 83 BPM Atrial Rate : 83 BPM P-R Int : 130 ms QRS Dur : 84 ms QT Int : 404 ms P-R-T Axes : 43 28 30 degrees QTcB Int : 474 ms Normal sinus rhythm Normal ECG Confirmed by DRISS VARGAS ([id number]), publications editor JIM IBARRA ([id number]) on 03/27/2025 9:07:02 AM Referred By: Confirmed By: DRISS VARGAS
--- NOTE | 2025-03-24 09:55 | CT_ITS ---
PROCEDURE: CTA CHEST W/WO CONTRAST 03/24/2025 REASON FOR EXAM: HYPOXIA, PLEURITIC CHEST PAIN , HX OF CANCER Pulmonary metastatic disease. TECHNIQUE: Procedure Code: [id number] Modality: CT Procedure: CTA CHEST W/WO CONTRAST Multiplanar Sagittal and Coronal images were obtained. 3D post processing was performed CONTRAST: Isovue 370 VOLUME: 100 mL One or more dose reduction techniques were used (e.g., Automated exposure control, adjustment of the mA and/or kV according to patient size, use of iterative reconstruction technique). RADIATION DOSE SUMMARY: CTDlvol: 17 mGy DLP: 450.3 MGycm COMPARISON: CT abdomen January 2024. # of known CTs in the past 12 months: 1 # of known Cardiac Nuclear Medicine Studies in the past 12 months: 0 FINDINGS: Thyroid gland: Negative. Lungs: Extensive bilateral pulmonary masses largest on the right is in the right middle lobe and measures 5.6 by 4.8 cm. Largest in the left is in the left lung base and measures at least 6 by 7 cm. This mass is increased in size and overall suspect metastatic disease has moderately worsened since January 2024. Additionally there is hyperdense material in the right lower lobe consider concerning for aspiration pneumonia with similar disease on the left. Therefore suspect patient has both worsening metastatic disease and developing bilateral aspiration pneumonia. Pleura: Negative for pleural effusion or pneumothorax. Airways: Imaged bronchi and trachea otherwisenegative. Mediastinum: Right azygous esophageal recess adenopathy measures 2.7 by 1.6 cm. Negative for mediastinal mass. Lymph nodes: Azygous esophageal recess adenopathy. Mild left hilar adenopathy. No axillary adenopathy. Heart and Vasculature: Pulmonary arteries well opacify with intravenous contrast. Negative for intraluminal thrombus. Heart normal size. Negative for vascular calcifications of the thoracic aorta. Coronary Artery Calcifications: Slight vascular calcifications of the coronary arteries Upper Abdomen: Probable hepatic metastatic disease with poorly defined lesion in the right lobe of liver measuring at least 5 cm. Hardware: None. Bones: No bony metastatic disease. Mild compression fractures lower thoracic spine, old. Age-appropriate degenerative changes of the thoracic spine. CT/CTA Chest W/WO Contrast IMPRESSION: Negative for pulmonary embolus. Extensive pulmonary metastatic disease mildly worse compared to January 2024. Suspect interval development of bilateral aspiration pneumonia. Hepatic metastatic disease. No definitive bony metastatic disease Reading Location: [id number]
--- NOTE | 2025-03-24 09:57 | EX.ED.DYSGE1 ---
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 He follows with Dr. Moran. He is presenting today with worsening left sided pleuritic chest pain. States it started rather suddenly around 7 PM last night. He states he feels generally weak and short of breath with it. On arrival to the ER patient was 86% on room air and does not wear oxygen normally. He has been having chills for the past few nights and for the past few weeks has been having some worsening cough. Son states has been worse over the past few days. No fevers reported. Tried to take pain medication (phospho-inge) last night with no relief. Denies any medications today. Denies associate nausea or vomiting, cardiac history, history of DVT or PE or leg swelling. Is not on any oral anticoagulation. States he does have some mild pain in his left upper quadrant but states it is more underneath his ribs. Denies any acute change in his bowel movements . No other complaints or concerns reported acutely at this time. States he does have [facility] Medical History Colon cancer metastasized to multiple sites Anemia Pneumonia Sleep apnea Colon cancer GERD (gastroesophageal reflux disease) High cholesterol HTN (hypertension) Home Medications ?Medication ?Instructions ?Recorded ?Last Taken ?Type aspirin 81 mg tablet,delayed 81 mg PO DAILY 01/07/22 01/08/25 History release glimepiride 4 mg tablet 4 mg PO DAILY 01/07/22 01/09/25 History omeprazole 40 mg capsule,delayed 40 mg PO DAILY 01/07/22 01/08/25 History release pioglitazone 30 mg tablet 30 mg PO DAILY 01/07/22 01/08/25 History rosuvastatin 10 mg tablet 10 mg PO DAILY 01/07/22 01/09/25 History mometasone 50 mcg/actuation nasal 2 spray intranasal DAILY 02/01/24 01/08/25 History spray ondansetron HCl 8 mg tablet 8 mg PO Q8H PRN nausea and vomiting 02/01/24 Unknown History prochlorperazine maleate 10 mg 10 mg PO Q6H PRN nausea and 08/05/24 Unknown History tablet vomiting zolpidem 10 mg tablet 10 mg PO QHS PRN PRN sleep 02/01/24 Unknown History insulin glargine 100 unit/mL (3 20 unit subcut DAILY 11/24/24 Unknown History mL) subcutaneous pen (Lantus Solostar U-100 Insulin) acyclovir 400 mg tablet 400 mg PO BID 01/09/25 01/09/25 History amoxicillin 875 mg-potassium 1 tab PO BID 01/09/25 Unknown History clavulanate 125 mg tablet azithromycin 250 mg tablet 250 mg PO UD 01/09/25 Unknown History hydrochlorothiazide 12.5 mg tablet 12.5 mg PO DAILY 01/09/25 01/09/25 History magnesium chloride 71.5 mg 71.5 mg PO BID 01/09/25 01/09/25 History (magnesium chloride) tablet,delayed release (Slow-Mag) mirtazapine 15 mg tablet 15 mg PO QHS 01/09/25 Unknown History potassium chloride 10 mEq 10 meq PO BID 01/09/25 01/09/25 History tablet,extended release amoxicillin 875 mg-potassium 1 tab PO Q12H #20 tabs 03/24/25 Unknown Rx clavulanate 125 mg tablet hydrocodone-acetaminophen 5-325mg 1 tab PO Q6H PRN PRN Pain 5 days 03/24/25 Unknown Rx 5mg-325mg #20 TABLETS Allergy/AdvReac Type Severity Reaction Status Date / Time lisinopril Allergy Severe Angioedema Verified 03/24/25 08:54 metformin Allergy Upset Verified 03/24/25 08:54 Stomach Surgical History History of ankle surgery History of knee replacement History of appendectomy History of colon resection Social History housing: house Smoking Status: Former smoker ROS ROS ED Constitutional Constitutional ED: Reports chills; Denies fever(s) ENT ENT ED: Denies rhinorrhea or sore throat Cardiovascular Cardiovascular: Reports chest pain; Denies palpitations Respiratory/Chest Respiratory/Chest: Reports cough, dyspnea, dyspnea on exertion and sputum Gastrointestinal Gastrointestinal: Denies abdominal pain, diarrhea, nausea or vomiting Musculoskeletal Musculoskeletal: Denies arthralgias or myalgias Integumentary Denies rash Neurologic Neurologic: Reports weakness; Denies headache(s) or paresthesias Hematologic/Lymphatic Hematologic/Lymphatic: Denies easy bleeding or easy bruising EXAM Physical Exam Const Vital Signs: 03/24/25 15:45 03/24/25 15:56 03/24/25 16:00 Temperature 97.8 F Temperature Source Oral Pulse Rate 75 72 74 Respiratory Rate 20 H 28 H 33 H Blood Pressure 107/64 107/64 94/54 L Blood Pressure Mean 77 78 66 Blood Pressure Source Monitor Blood Pressure Position Semi-Fowlers Blood Pressure Location Left Arm Pulse Ox 99 97 100 Oxygen Delivery Method Room Air 03/24/25 16:15 03/24/25 16:20 Temperature 97.8 F Temperature Source Pulse Rate 77 77 Respiratory Rate 29 H 29 H Blood Pressure 98/55 L 98/55 L Blood Pressure Mean 67 69 Blood Pressure Source Blood Pressure Position Blood Pressure Location Pulse Ox 97 97 Oxygen Delivery Method Positive well nourished and well developed General Appearance ED: well developed and NAD HEENT Reports dry mucous membranes Mouth ED: Yes dry mucous membranes Mouth: dry mucous membranes Eyes PERRL and EOMs intact bilaterally Neck supple and no JVD Chest Wall inspection of chest normal Chest Narrative: No chest wall crepitus. No overlying rash of the chest wall. Mild tense palpation of the left anterior lower ribs and along the costal margin. Resp Resp Narrative: Tachypneic. Mildly coarse of breath sounds on the left side compared to the right with bibasilar crackles present. No absent breath sounds. Cardio regular rate, regular rhythm and no murmurs GI normal to inspection, nondistended, normoactive bowel sounds and non-tender Palpation: soft; Negative for tender or guarding Extremity normal to inspection General Extremety ED: Negative for edema General Extremity: Negative for edema Neuro oriented x3 Sensorium / Orientation: alert Motor Exam: general weakness Psych mental status grossly normal Skin no rashes or lesions noted and no wounds MDM MDM MDM Narrative Medical decision making narrative: Patient is evaluated for worsening shortness of breath left-sided pleuritic pain. Has had chills. Differential includes is not limited to pulmonary emboli, pneumothorax, postobstructive pneumonia, progression of his cancer, pleural effusion, symptomatic anemia, hyponatremia. Chest x-ray obtained to rule out pneumothorax given sudden onset of pleuritic pain and hypoxia. This reviewed by myself and shows extensive pulmonary metastatic disease but no pneumothorax. This is also reviewed by radiology was in agreement. CBC shows a mild leukocytosis of 13.1, his hemoglobin is 6.5 which is similar to where his hemoglobin was in December of this year. Question we could have some symptomatic anemia however given that he is hypoxic and short of breath more acutely over the past few days. Anemia is likely associated with his cancer. He has a normal BUN and creatinine lower spectrum for upper GI bleeding. Blood glucose is mildly elevated at 309 however his anion gap is normal. He has some mild pseudohyponatremia with a sodium of 129. CTA of the chest shows no PE however there is extensive pulmonary metastatic disease that is worsening from January 2024 as well as bilateral aspiration pneumonia. Patient started on Unasyn. We ordered a unit of blood. Did discuss with the patient's oncologist, Dr. Moran, who states from an oncologic standpoint there is not a whole lot of intervention further for him and he does not need transferred from that standpoint. He does not have a particularly obstructive process from his lung mets. Discussed with the hospitalist for admission with the patient. Initially patient was agreeable however on further consideration patient states he is really go home. He knows that his diagnosis is terminal and is interested in hospice evaluation. He understands if he goes home I cannot arrange for home oxygen today and his oxygen might be low. He states he is likely had low oxygen for couple days. He is acting appropriate and has capacity to make this decision. I did speak with [facility] and his information was sent over. I given a phone number which I gave to his to call once he gets home and they will have someone come out [facility] for further hospice assistance and evaluation. Patient is agreeable to prescription for pain medication and antibiotics (Augmentin) for pneumonia. Will receive a unit of blood in the emergency room. Counseled that it is possible that he could go into fulminant respiratory distress and have an untimely associated with respiratory failure given that he is already hypoxic. He verbalizes understanding of this. He is encouraged to return to the emergency room should he change his mind about treatment options or hospitalization. Patient, son and are all in agreement with this plan of care. Lab Data Attestation: I reviewed the patient's lab results. Labs: Laboratory Results - last 24 hr 03/24/25 11:52 Crossmatch See Detail Radiography Chest X-Ray - ED: 1 View, Read by ED Physician, Read by Radiologist and Chronic Changes Diagnostic Testing: Clinical Impression(s) from Imaging Studies Chest CTA 03/24/25 09:55 IMPRESSION: Negative for pulmonary embolus. Extensive pulmonary metastatic disease mildly worse compared to January 2024. Suspect interval development of bilateral aspiration pneumonia. Hepatic metastatic disease. No definitive bony metastatic disease Reading Location: [facility] Chest X-Ray 03/24/25 10:30 IMPRESSION: Extensive pulmonary metastatic disease Small left-sided pleural effusion. Reading Location: [facility] Rhythm Strip Rate: 83 Ectopy: None EKG Initial EKG: Attestation: I personally reviewed and interpreted this EKG as follows: Interpretation: Sinus Rhythm Comments: Normal sinus rhythm at a rate of 83 bpm Normal axis Normal intervals Normal ST segments Management Discussion w/another healthcare provider: Hospitalist and Cdl Driver Discharge Plan Triage Chief Complaint: Other, Pain/Inj ED Provider: Afsaneh Olson Dx/Rx/DC Orders Clinical Impression: Metastatic colon cancer to liver, Metastatic cancer to lung, Aspiration pneumonia, Anemia, Hypoxia Prescriptions: New amoxicillin-pot clavulanate 875-125 mg tablet 1 tab PO Q12H Qty: 20 0RF hydrocodone-acetaminophen 5-325 mg tablet 1 tab PO Q6H PRN PRN (Reason: Pain) 5 Days Qty: 20 0RF No Action omeprazole 40 mg Capsule,Delayed Release(Dr/Ec) 40 mg PO DAILY aspirin 81 mg Tablet,Delayed Release (Dr/Ec) 81 mg PO DAILY glimepiride 4 mg Tablet 4 mg PO DAILY Patient Comments: was told today by Dr Mazariegos to stop taking pioglitazone 30 mg Tablet 30 mg PO DAILY rosuvastatin 10 mg Tablet 10 mg PO DAILY insulin glargine [Lantus Solostar U-100 Insulin] 100 unit/mL (3 mL) insulin pen 20 unit SUBCUT DAILY Patient Comments: USE 20 UNITS SUBCUTANEOUSLY ONCE A DAY IF SUGAR LEVELS ARE OVER 200 IN THE MORNING BEFORE BREAKFAST states hasn't had insulin since he had chemo potassium chloride 10 mEq tablet extended release 10 meq PO BID acyclovir 400 mg tablet 400 mg PO BID hydrochlorothiazide 12.5 mg tablet 12.5 mg PO DAILY Slow-Mag 71.5 mg tablet,delayed release (DR/EC) 71.5 mg PO BID azithromycin 250 mg tablet 250 mg PO UD Patient Comments: has not started yet mirtazapine 15 mg tablet 15 mg PO QHS amoxicillin-pot clavulanate 875-125 mg tablet 1 tab PO BID Patient Comments: has not started yet ondansetron HCl 8 mg tablet 8 mg PO Q8H PRN (Reason: nausea and vomiting) Patient Comments: TAKE 1 TABLET BY MOUTH EVERY 8 HOURS NEEDED FOR NAUSEA AND VOMITING prochlorperazine maleate 10 mg tablet 10 mg PO Q6H PRN (Reason: nausea and vomiting) Patient Comments: TAKE 1 TABLET BY MOUTH EVERY 6 HOURS NEEDED mometasone 50 mcg/actuation spray,non-aerosol 2 spray INTRANASAL DAILY Patient Comments: USE 1 SPRAY(S) IN EACH NOSTRIL TWICE DAILY zolpidem 10 mg tablet 10 mg PO QHS PRN PRN (Reason: sleep) Patient Comments: TAKE 1 TABLET BY MOUTH AT BEDTIME Primary Care Provider: Chaitanya Mazariegos Referrals: Chaitanya Mazariegos MD [Primary Care Provider, Family Practice] Activity Restrictions/Additional Instructions: You received a unit of blood today. You have been prescribed antibiotics for aspiration pneumonia. Please contact hospice [facility] referral line when you get home (call them immediately) and they will send hospice nurse out to your house for further assistance and evaluation later tonight or soon as possible. If it anytime you feel your breathing is worsening, you change your mind or you have further concerns please do not hesitate to return to the emergency room. We did initially plan on admission to the hospital for supplemental oxygen, pain control, blood transfusion and treatment of aspiration pneumonia however due to your advanced cancer and desire to be at home it was ultimately decided to go home tonight. There is a risk given your low oxygen with this however you are welcome back to the ER if you feel that you are worsening or change her mind. Print Language: Albanian Disposition Disposition: Home, Self Care Discharge Date/Time: 03/24/25 16:28
[2025-03-24] MEDS: 0.9% Normal Saline (1000mL) 1,000 ML 999 ML IV (10:11)
[2025-03-24] MEDS: fentaNYL 100 MCG/2 ML Ampul 50 MCG IV (10:13)
--- NOTE | 2025-03-24 10:19 | CPS ---
Pt was 100%, RT decreased O2 down to 2L NC. Pt is now 97%
--- NOTE | 2025-03-24 10:30 | RAD_ITS ---
PROCEDURE: CHEST 1 VIEW (PORTABLE) 03/24/2025 REASON FOR EXAM: LEFT SIDED CHEEST PAIN TECHNIQUE: Frontal view of the chest. COMPARISON: December 2024. FINDINGS: Hardware and support lines: Left-sided Port-A-Cath. Heart: Negative. Lungs: Numerous bilateral pulmonary masses relatively stable. Pleura: No pleural thickening. Minimal left-sided pleural fluid. Mediastinum and aorta: Negative for hilar adenopathy. Mildly tortuous thoracic aorta. Bones: Mild degenerative changes of the shoulders. Age-appropriate degenerative changes of the spine. Other: Remainder of the exam negative. RAD/Chest 1 View (Portable) IMPRESSION: Extensive pulmonary metastatic disease Small left-sided pleural effusion. Reading Location: [id number]
[2025-03-24 11:11] LABS: Hematocrit 21.5 % (40-54); Hemoglobin 6.5 g/dL (13.0-16.5); Immature Granulocytes Count 0.080 X10^3/uL (0.0-0.0); Mean Corp Hgb Conc 30.2 g/dL (32-36); Mean Corpuscular Volume 85.3 fL (80-94); Mean Platelet Vol. 9.3 fl (6.2-12.0); NRBC Flagged by Analyzer 0 % (0-5); Platelet Count 253 K/mm3 (150-450); RBC Distribution Width CV 18.8 % (11.6-14.6); RBC Distribution Width SD 59.0 fl (35.1-43.9); Red Blood Count 2.52 M/mm3 (4.6-6.2); White Blood Count 13.1 K/mm3 (4.4-11.0)
[2025-03-24 11:41] LABS: Anion Gap 10 (5-15); BUN 16 mg/dL (4-19); BUN/Creat Ratio 14.4 RATIO (10-20); Calcium,Total 8.1 mg/dL (7.6-11.0); Carbon Dioxide 25.2 mmol/L (21.0-32.0); Chloride 94 mmol/L (98-108); Estimated Creatinine Clearance 53.06 ml/min (50-250); Glucose 309 mg/dL (70-99); Potassium 3.4 mmol/L (3.3-5.1); Pro- Brain NATRIURETIC PEPTIDE 1573 pg/mL (<=1800); Troponin T High Sensitivity 27 ng/L (<=22)
[2025-03-24] MEDS: Ampicillin/Sulbactam 3 GM in 0.9% Normal Saline (100mL MB+) 100 ML IV (13:56)
[2025-03-24] MEDS: HYDROcodone Bitartrate/Apap 5/325 Tablet PO (13:56)
[2025-03-24 14:09] LABS: Troponin T High Sens 2 HR 26 ng/L (<=22)
== END 2025-03-24 16:28 | disposition home or self-care (01) ==
LOC: ED 12:29 → PCU 15:00
PROVIDERS: Emergency Provider Emergency Medicine; PCP Family Medicine; Visit Provider Emergency Medicine
DX: J69.0 Pneumonitis due to inhalation of food and vomit (principal); C78.7 Secondary malignant neoplasm of liver and intrahepatic bile duct; C78.01 Secondary malignant neoplasm of right lung; C78.02 Secondary malignant neoplasm of left lung; C18.9 Malignant neoplasm of colon, unspecified; R09.02 Hypoxemia; D64.9 Anemia, unspecified; R06.00 Dyspnea, unspecified; I10 Essential (primary) hypertension; K21.9 Gastro-esophageal reflux disease without esophagitis; E78.00 Pure hypercholesterolemia, unspecified; Z90.49 Acquired absence of other specified parts of digestive tract; Z79.82 Long term (current) use of aspirin; Z79.899 Other long term (current) drug therapy; Z87.891 Personal history of nicotine dependence
CPT/HCPCS: 36430; 71045; 71275; 80048; 83880; 84484; 85025; 86850; 86900; 86901; 93005; 96361; 96365; 96366; 96375; 99284; P9016; Q9967; A4216; J0295

== ENCOUNTER 2025-04-21 08:54 | Outpatient (CLI) | payer MEDICARE, SELFPAY ==
[2025-04-21 09:17] VITALS: BP 110/49; PULSE 102; RESP 16; TEMP 35.7; O2SAT 95; BMI 25.0
[2025-04-21 09:40] VITALS: BP 88/48; PULSE 83; RESP 16; TEMP 36.1; O2SAT 95
[2025-04-21 10:46] VITALS: BP 99/49; PULSE 76; RESP 16; TEMP 36; O2SAT 95
== END 2025-04-21 23:59 | disposition home or self-care (01) ==
LOC: MEDOUTP 08:54
PROVIDERS: PCP Family Medicine; Referring Provider Internal Medicine Hematology & Oncology; Visit Provider Internal Medicine Hematology & Oncology
DX: D64.81 Anemia due to antineoplastic chemotherapy (principal); T45.1X5A Adverse effect of antineoplastic and immunosuppressive drugs, initial encounter
CPT/HCPCS: 36430; 86850; 86900; 86901; P9016; A4216

== ENCOUNTER 2025-05-06 08:25 | Emergency (ER) | payer MEDICARE, SELFPAY ==
[2025-05-06 08:26] VITALS: BP 101/54; PULSE 93; RESP 18; TEMP 37.1; O2SAT 92; BMI 24.7
[2025-05-06 08:30] VITALS: BP 113/61; PULSE 86; RESP 18; TEMP 36.3; O2SAT 94; O2SAT 96
--- OUTSIDE RECORDS SUMMARY | 2025-05-06 08:41 | XMS RPT_ITS | CCD ---
Author Organization [facility] Care Team Providers Care Sustainable Agriculture Specialist Name Role Phone Marker, Bhavna Cruz Unavailable Unavailable Marker, Bhavna Cruz Unavailable Unavailable Unavailable Primary Care Provider UnavailDayami [place] Unavailable Unavailable Unavailable Bhupinder RODRIGUEZ, Dayami Torres Primary Care Provider HARIS MsJohnathan ROSS Attending U navailable ROE, Dr. DAYAMI TORRES Primary Care Unav [...] TORRES Primary Care Unav ailable Zumbar, Dr. Tamaar Gilbert Attending Unav ailable ROE, Dr. DAYAMI TORRES Primary Care Unav ailfareed Roe MD, Dayami Torres Primary Care Provider Bhupinder, Dr. Dayami Torres Primary Care Unav ailable Bhupinder, Dr. Dayami Torres Attending Unav ailable Roe, Dr. Dayami Torres Referring Unav ailable Roe, Dr. Dayami Torres Primary Care Unav ailable Bhupinder, Dr. Dayami Torres Attending Unav ailable Roe, [...] ailable Roe Dayami RODRIGUEZ Primary Care Provider [phone] Dayami Roe MD Unavailable Dayami Roe MD Primary Care Provider [phone] Dayami Roe MD Unavailable [phone] DAYAMI ROE Primary Care Unavaila ble DAMEON RAI Attending Unava ilable DAYAMI ROE Primary Care Unavaila ble NGA WHITFIELD Attending Unavailable Dayami Roe MD Primary Care Provider Dayami Roe MD Primary Care Provider [phone] Tara To RN Unavailable Unavailable Unavailable Primary Care Provider Unavailaddison Roe MD, Dayami Torres Primary Care Provider DAYAMI ROE Primary Care Unavaila ble HAYDEN BALDERAS Attending Unavailable HAYDEN BALDERAS Attending Unavailable ROEDAYAMI Stiles Primary Care Unavaila ble HAYDEN BALDEARS Referring Unavailable ROEDAYAMI Stiles Primary Care Unavaila ble HAYDEN BALDERAS Referring Unavailable HAYDEN BALDERAS Attending Unavailable DAYAMI ROE Primary Care Unavaila ble ARIAS FRANCO Attending Unavail able ENRIQUETA العراقي Admitting Unavailable DAYAMI ROE Primary Care Unavaila ble YENI, TOMÁS Consulting UnavailHAYDEN Gilmore Attending Unavailable DAYAMI ROE Primary Care Unavaila ble DAYAMI ROE Primary Care Unavaila ble HAYDEN BALDERAS Attending Unavailable DAYDAVID Attending Unavailable ROE, DAYAMI TORRES Referring Unavaila ble ROE, DAYAMI TORRES Primary Care Unavaila ble AUSTEN HALL Attending Unavailab le ROE, DAYAMI TORRES Primary Care Unavaila ble ROE, DAYAMI TORRES Primary Care Unavaila ble COLBYNELI Attending Unavailable ROE, DAYAMI Stiles Attending Unavailable ROE, DAYAMI Stiles Referring Unavailable ROE, GETACHEWOPHALESSANDRA Stiles Primary Care Unavailable ROE, CHRISTOPHALESSANDRA Stiles Attending Unavailable ROE, CHRISTOPHER Linsey Primary Care Unavailable ROE, CHRISTOPHALESSANDRA D Attending Unavailable ROE, GETACHEWOPHALESSANDRA Stiles Primary Care Unavailable ROE, CHRISTOPHALESSANDRA Stiles Attending Unavailable ROE, CHRISTOPHER D Referring Unavailable ROE, CHRISTOPHER D Primary Care Unavailable Dosandra APARICIO, Jocelin Unavailable Unavailable Dipika DIAMOND, Aarti Andres Unavailable BHUPINDER, DAYAMI Stiles Primary Care Unavailable ROE, DAYAMI Stiles Primary Care Unavailable ROE, DAYAMI Stiles Primary Care Unavailable ROE, GETACHEWOPHER Linsey Primary Care Unavailable Dayami Puri MD Primary Care Provider Prosper Narvaez Unavailable Bhupinder RODRIGUEZ, Dayami Torres Primary Care Provider Podlogar HAND PRINTED CIRCUIT BOARD ASSEMBLER.Mady FINN Unavailable Jai HAND PRINTED CIRCUIT BOARD ASSEMBLER.AAKASH, Brunilda Unavailable Amparo Potts Unavailable Unavailabl e Jai HAND 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, Brunilda Unavailable Dr. Chaitanya Roe MD Primary Care Provider [phone] Dr. Aarti Bar DO Attending Provider Dr. Aarti Bar DO Referring Provider Jai HAND 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, Brunilda Unavailable Dr. Chaitanya Puri MD Primary Care Provider Melanie DIAMOND, Dr. Mc Emergency Provider Jocelyn RODRIGUEZ, Dr. Manley Other Provider Unavailabl chuy Levy MD, Dr. Dowd Other Provider Papito RODRIGUEZ, Dr. Gagnon Other Provider Elliot RODRIGUEZ, Dr. Sanon Other Provider [phone] Anastacio DIAMOND, Dr. Caro Other Provider Carly RODRIGUEZ, Dr. Zurita Other Provider [phone] Dave DIAMOND, Dr. Morgan Other Provider [phone] Neeru RODRIGUEZ, Dr. Wright Other Provider Henrry DIAMOND, Dr. Lockhart Other Provider Marissa RODRIGUEZ, Dr. Miller Other Provider Carisa RODRIGUEZ, Dr. Webster Other Provider Nargis RODRIGUEZ, Dr. Burnett Other Provider Meghan RODRIGUEZ, Dr. Leo Other Provider [phone] Debbie RODRIGUEZ, Dr. Polk Other Provider [phone] Dony RODRGIUEZ, Dr. Hdez Other Provider [phone] Zander RODRIGUEZ, Dr. Joel Other Provider [phone] Phillip RODRIGUEZ, Dr. Lorenzo Other Provider [phone] Lucas RODRIGUEZ, Dr. Saunders Other Provider [phone] Cuba RODRIGUEZ, Dr. Hyde Other Provider [phone] Mana RODRIGUEZ, Dr. Guerrero Other Provider Brian RODRIGUEZ, Dr. Polo Strickland Other Provider [phone] Fermin RODRIGUEZ, Dr. Crowell Other Provider [phone] Zhao RODRIGUEZ, Dr. Bernard Other Provider [phone] Samuel RODRIGUEZ, Dr. Mattson Admit Provider Samuel RODRIGUEZ, Dr. Mattson Attending Provider Samuel RODRIGUEZ, Dr. Mattson Other Provider Dr. Lencho Ty DO Attending Provider Samuel RODRIGUEZ, Dr. Mattson Attending Provider Anastacio DIAMOND, Dr. Caro Attending Provider Melony DIAMOND, Dr. Flaherty Other Provider Brice Prosper Joey Unavailable Khushi RODRIGUEZ, Dr. Tavares Primary Care Physicia n Melanie DIAMOND, Dr. Mc Emergency Department Physician Samuel RODRIGUEZ, Dr. Mattson Admitting Physician Samuel RODRIGUEZ, Dr. Mattson Nurse Practitioner Carisa RODRIGUEZ, Dr. Webster Nurse Practitioner [phone] Mana RODRIGUEZ, Dr. Guerrero Nurse Practitioner Papito RODRIGUEZ, Dr. Gagnon Nurse Practitioner Anastacio DIAMOND, Dr. Caro Nurse Practitioner Brian RODRIGUEZ, Dr. Polo Strickland Nurse Practitioner Cuba RODRIGUEZ, Dr. Hyde Nurse Practitioner Elliot RODRIGUEZ, Dr. Sanon Nurse Practitioner Dony RODRIGUEZ, Dr. Hdez Nurse Practitioner Carly RODRIGUEZ, Dr. Zurita Nurse Practitioner Fermin RODRIGUEZ, Dr. Crowell Nurse Practitioner Zhao RODRIGUEZ, Dr. Bernard Nurse Practitioner [phone] Marissa RODRIGUEZ, Dr. Miller Nurse Practitioner Jocelyn RODRIGUEZ, Dr. Manley Nurse Practitioner Unavail fareed Zavala MD, Dr. Saunders Nurse Practitioner [phone] Nargis RODRIGUEZ, Dr. Burnett Nurse Practitioner [phone] Phillip RODRIGUEZ, Dr. Lorenzo Nurse Practitioner Neeru RODRIGUEZ, Dr. Wright Nurse Practitioner [phone] Dave DIAMOND, Dr. Morgan Nurse Practitioner Gill MD, Dr. Leo Nurse Practitioner Debbie RODRIGUEZ, Dr. Polk Nurse Practitioner Henrry DIAMOND, Dr. Lockhart Nurse Practitioner [phone] Cam RODRIGUEZ, Dr. Dowd Nurse Practitioner [phone] Zander RODRIGUEZ, Dr. Joel Nurse Practitioner Melony DIAMOND, Dr. Flaherty Attending Physician Samuel RODRIGUEZ, Dr. Mattson Attending Physician Anastacio DIAMOND, Dr. Caro Attending Physician Melony DIAMOND, Dr. Flaherty Referring Provider Melony DIAMOND, Dr. Flaherty Nurse Practitioner Wesley DIAMOND, Dr. Shelby Emergency Department Physi minerva DAYAMI PURI Primary Care Unavailab Aarti Andrews Attending Unavailable Chaitanya Puri Primary Care Unavailable Aarti Bar Referring Unavailable Lencho Ty Attending Unavailable Chaitanya Puri Primary Care Unavailable Srinivasan Baker Admitting Unavailable Darin Younger Consulting Unavailable Cesar Adair Consulting Unavailable Kalin Cobos Consulting Unavailable Gordo Chaves Consulting Unavailable Polo Nguyen Consulting Unavailable Barrett Brink Consulting Unavailable Fab Zarate Consulting Unavailable Ketty Napoles Consulting Unavailab Parminder Granger Consulting Unavailable Socrates Christensen Consulting Unavailable Marco Antonio Churchill Consulting Unavailable Angela Ann Consulting Unavailable AljunSindhu schneider Consulting Unavailable Zavala, Nicky Consulting Unavailable Nargis, Lex Consulting Unavailable Iruksivan, Bj Consulting Unavailable Neeru, Kyle Consulting Unavailable Dave, Eddie Consulting Unavailable Felipa Christianson Consulting Unavailable Jam Lewis Consulting Unavailable Richy Sales Consulting Unavailable Nile Levy Consulting Unavailable Wisam Fermin Consulting Unavailable Srinivasan Baker Consulting Unavailable Lencho Ty Consulting Unavailable Lencho Ty Referring Unavailable Gordo Chaves Attending Unavailable Srinivasan Baker Attending Unavailable Afsaneh Olson Attending Unavailable Dameon Cohn Admitting Unavailable Chaitanya Puri Primary Care Unavailable Lencho Ty Attending Unavailable Darin Younger Consulting Unavailable Khushi Chaitanya Primary Care Unavailable Samuel, Srinivasan Admitting Unavailable Cesar Adair Consulting Unavailable Kalin Cobos Consulting Unavailable Gordo Chaves Consulting Unavailable Polo Nguyen Consulting Unavailable Barrett Brink Consulting Unavailable Fab Zarate Consulting Unavailable Ketty Napoles Consulting Unavailab Parminder Granger Consulting Unavailable Christensen, Scorates Consulting Unavailable Marco Antonio Churchill Consulting Unavailable Angela Ann Consulting Unavailable Sindhu Banks Consulting Unavailable Zavala, Nicky Consulting Unavailable Nargis, Lex Consulting Unavailable IrBj mcclellan Consulting Unavailable Neeru, Kyle Consulting Unavailable Eddie Acosta Consulting Unavailable Felipa Christianson Consulting Unavailable Jam Lewis Consulting Unavailable Richy Sales Consulting Unavailable Nile Levy Consulting Unavailable Wisam Fermin Consulting Unavailable Samuel, Srinivasan Consulting Unavailable Bhupinder Chaitanya Primary Care Unavailable Aarti Bar Referring Unavailable Aarti Bar Attending Unavailable DAYAMI PURI Referring Unavailab le YONATAN PURIER B Primary Care Unavailab le AARTI BAR A Referring Unavailable DAYAMI PURI B Primary Care Unavailab le AARTI BAR Referring Unavailable DAYAMI PURI B Primary Care Unavailab le DAYAMI PURI B Primary Care Unavailab le KHUSHI, GETACHEWOPHER B Primary Care Unavailab le DIPIKA, AARTI A Referring Unavailable AARTI BAR A Referring Unavailable YONATAN PURIER Dinesh Primary Care Unavailab SILVA Pyle Attending Unavailabl e DAYAMI PURI Primary Care Unavailab le KHUSHI, GETACHEWOPHER B Primary Care Unavailab le AARTI BAR A Referring Unavailable YONATAN PURIER B Primary Care Unavailab le AARTI BAR A Referring Unavailable AARTI BAR Referring Unavailable DAYAMI PURI B Primary Care Unavailab le AARTI BAR Referring Unavailable DAYAMI PURI B Primary Care Unavailab RHONDA Caba Attending Unavailable AARTI BAR Referring Unavailable DAYAMI PURI B Primary Care Unavailab le KHUSHI, YONATANER B Referring Unavailab le KHUSHI, YONATANER B Primary Care Unavailab le DAYAMI PURI Attending Unavailab le YONATAN PURIER Dinesh Primary Care Unavailab le YONATAN PURIER B Primary Care Unavailab le MASCI, AARTI A Referring Unavailable YONATAN PURIER Dinesh Primary Care Unavailab le MASCI, AARTI A Referring Unavailable YONATAN PURIER Dinesh Primary Care Unavailab le MASCI, AARTI A Referring Unavailable YONATAN PURIER Dinesh Primary Care Unavailab le MASCI, AARTI A Referring Unavailable YONATAN PURIER Dinesh Primary Care Unavailab le MASCI, AARTI A Referring Unavailable YONATAN PURIER Dinesh Primary Care Unavailab le MASCI, AARTI A Referring Unavailable YONATAN PURIER Dinesh Primary Care Unavailab le GETACHEW PURIOPHER Dinesh Primary Care Unavailab le MASCI, AARTI A Attending Unavailable YONATAN PURIER Dinesh Primary Care Unavailab le YONATAN PURIER Dinesh Primary Care Unavailab le MASCI, AARTI A Referring Unavailable YONATAN PURIER Dinesh Primary Care Unavailab LUISITO Walters Attending Unavailabl e YONATAN PURIER Dinesh Primary Care Unavailab le MASCI, AARTI A Referring Unavailable MASCI, AARTI A Referring Unavailable YONATAN PURIER B Primary Care Unavailab le MASCI, AARTI A Referring Unavailable YONATAN PURIER B Primary Care Unavailab le YONATAN PURIER Dinesh Referring Unavailab le YONATAN PURIER B Primary Care Unavailab le MASCI, AARTI A Referring Unavailable YONATAN PURIER Dinesh Primary Care Unavailab le MASCI, AARTI A Referring Unavailable YONATAN PURIER B Primary Care Unavailab le MASCI, AARTI A Referring Unavailable YONATAN PURIER B Primary Care Unavailab le MASCI, AARTI A Referring Unavailable YONATAN PURIER Dinesh Primary Care Unavailab le MASCI, AARTI A Referring Unavailable YONATAN PURIER Dinesh Primary Care Unavailab JANNET Gamble Attending Unavailabl e SELF Referring Unavailable YONATAN PURIER B Primary Care Unavailab le GETACHEW PURIOPHER B Primary Care Unavailab le MASCI, AARTI A Referring Unavailable YONATAN PURIER B Primary Care Unavailab le MASCI, AARTI A Referring Unavailable YONATAN PURIER B Primary Care Unavailab le MASCI, AARTI A Referring Unavailable MASCI, AARTI A Referring Unavailable YONATAN PURIER B Primary Care Unavailab le YONATAN PURIER Dinesh Attending Unavailab le [facility] Primary Care Unavailab le MASCI, AARTI A Referring Unavailable [facility]HI [facility] Primary Care Unavailab CHATO Dumont Attending Unavailable MASCI, AARTI Andres Referring Unavailable [facility] Primary Care Unavailab le MASCI, AARTI A Referring Unavailable [facility] Primary Care Unavailab le MASCI, AARTI A Referring Unavailable [facility]HI [facility] Primary Care Unavailab le MASCI, AARTI A Referring Unavailable [facility] Primary Care Unavailab le MASCI, AARTI A Referring Unavailable MASCI, AARTI Mckenna Attending Unavailable [facility], [facility] Primary Care Unavailab le MASCI, AARTI A Referring Unavailable [facility]HI [facility] Primary Care Unavailab le MASCI, AARTI A Referring Unavailable [facility], [facility] Primary Care Unavailab le MASCI, AARTI Mckenna Referring Unavailable [facility], [facility] Primary Care Unavailab le KHUSHI, [place] B Primary Care Unavailab le [facility], [facility] Primary Care Unavailab le MASCI, AARTI Mckenna Attending Unavailable MADY ARMENTA Attending Unavailable DANDRELEY[facility] Primary Care Unavailab le BURSLEY[facility] Primary Care Unavailab le MASCI, AARTI A Referring Unavailable MASCI, AARTI Andres Attending Unavailable [facility], [facility] Primary Care Unavailab le MASCI, AARTI Mckenna Referring Unavailable MASCI, AARTI Andres Attending Unavailable [facility] Primary Care Unavailab le MASCI, AARTI A Referring Unavailable [facility] Primary Care Unavailab le BURSLEY, [facility] Primary Care Unavailab le MASCI, AARTI A Referring Unavailable MASCI, AARTI A Referring Unavailable [facility], [facility] Primary Care Unavailab le MASCI, AARTI A Referring Unavailable [facility], [facility] Primary Care Unavailab le MASCI, AARTI Andres Attending Unavailable MASCI, AARTI A Referring Unavailable [facility] Primary Care Unavailab le BURSLEY[facility] Primary Care Unavailab le MASCI, AARTI A Referring Unavailable MASCI, AARTI A Referring Unavailable DANDRELEY[facility] Primary Care Unavailab le BURSLEY, [facility] Primary Care Unavailab le MASCI, AARTI Mckenna Attending Unavailable MASCI, AARTI A Referring Unavailable [facility] Primary Care Unavailab le MASCI, AARTI Mckenna Referring Unavailable DAYAMI PURI Primary Care Unavailab JOHN Christianson Attending Unavailable AARTI BAR Referring Unavailable DAYAMI PURI Primary Care Unavailab AARTI Andrews Referring Unavailable AARTI BAR Attending Unavailable DAYAMI PURI Primary Care Unavailab DAYAMI Hines Primary Care Unavailab AARTI Andrews Referring Unavailable DAYAMI PURI Primary Care Unavailab DAYAMI Hines Primary Care Unavailab AARTI Andrews Referring Unavailable DAYAMI PURI Primary Care Unavailab le DAYAMI PURI Primary Care Unavailab AARTI Andrews Referring Unavailable Allergies Allergy Classification Reported Allergen(s) Allergy Type Date of Onset Reaction(s) Facility Angiotensin Converting Enzyme (LIZZETTE) Inhibitors (3 sources) Lisinopril Drug Allergy 4 Swelling [facility] metFORMIN (5 sources) metFORMIN; Translations: [metformin] Drug Allergy 4 GI Upset [facility] Work Phone: (20 sources) metFORMIN; Translations: [metformin] Drug Allergy 2 GI Intolerance, Diarrhea, Nausea Only, GI Upset [facility] (20 sources) Lisinopril; Translations: [LISINOPRIL] Drug Allergy 4 Angioedema, Swelling [facility] (1 source) Lisinopril Drug Allergy [address] [facility] (1 source) metFORMIN Drug Allergy [address] [facility] Medications Current Medications Medication Drug Class(es) Dates Sig (Normalized) Sig (Original) acetaminophen 325 mg / HYDROcodone bitartrate 5 mg oral tablet (1 source) Opioid Agonist Start: 03-24-2025 take 1 tablet by mouth every six hours as needed for pain acyclovir 400 mg oral tablet (20 sources) Herpesvirus Nucleoside Analog DNA Polymerase Inhibitor, Herpes Simplex Virus Nucleoside Analog DNA Polymerase Inhibitor, Herpes Zoster Virus Nucleoside Analog DNA Polymerase Inhibitor Start: 12-15-2024 take 1 tablet by mouth twice daily amoxicillin 875 mg / clavulanate 125 mg oral tablet (9 sources) Penicillin-class Antibacterial Start: 03-24-2025 Start: 01-09-2025 End: 01-16-2025 take 1 tablet by mouth every twelve hours amoxicillin-clavulanate potassium (AUGMENTIN) 875-125 mg per tablet Take 1 tablet by mouth every 12 hours for 7 days. 14 tablet 01/09/2025 01/16/2025 Active Start: 01-09-2025 aspirin 81 mg delayed release oral tablet (20 sources) Platelet Aggregation Inhibitor, Nonsteroidal Anti-inflammatory Drug Start: 06-16-2019 take 1 tablet by mouth once daily Start: 06-16-2019 Adult Aspirin Regimen 81 MG [...] / diphenoxylate hydrochloride 2.5 mg oral tablet (20 sources) Anticholinergic, Cholinergic Muscarinic Antagonist, Antidiarrheal Start: [...] times a day . 0 10/15/2023 Active codeine phosphate 2 mg/ml / guaiFENesin 20 [...] 7 days. 210 mL 06/28/2024 07/05/2024 Active End: 01-17-2025 take 15 mL by mouth every six hours as needed Codeine-guaiFENesin 6.3-100 mg/5 mL liqd Take 15 mL by mouth every 6 hours as needed. 01/17/2025 Discontinued docusate sodium 50 mg / anselmo osides, jail 8.6 mg oral tablet (7 sources) Start: [...] contrast guidelines 1 Each 03/01/2024 03/02/2024 Active glimepiride 4 mg oral tablet (20 sources) Sulfonylurea Start: 01-05-2020 End: 01-14-2029 take 1 tablet by mouth once daily hydroCHLOROthiazide 12.5 mg oral tablet (20 sources) Thiazide Diuretic Start: 01-09-2025 take 1 tablet by mouth once daily Start: 11-13-2023 End: 01-09-2025 take 1 capsule by mouth once daily Hydrochlorothiazide 12.5 mg capsule Discontinued 12.5 mg PO DAILY February 01, 2024 12:00am January 09, 2025 1:25pm Start: 10-27-2023 End: 11-14-2024 take 1 tablet by mouth once daily hydroCHLOROthiazide 12.5 mg tablet Take 1 tablet by mouth once daily. 90 tablet 2 11/14/2024 Active 3 ml insulin glargine 100 un t/ml pen injector (6 sources) Insulin Analog Start: 11-24-2024 Start: 01-01-2024 insulin glargi ne (Lantus) 100 [...] d with radiology test) (20 sources) Start: 01-17-2025 iv contrast (will be provide d with radiology test) Indications: Metastatic colon cancer to liver (HCC) , Cancer of cecum (HCC) CT Chest W -Inject, intravenously, once [...] CT contrast administration guidelines link. 1 each 01/17/2025 Active Start: 01-17-2025 iv contrast (w ill be provided with radiology test) Indications: Metastatic colon cancer to liver (HCC) , Cancer of cecum (HCC) CT ABD/PEL -Inject, intravenously, once for [...] CT contrast administration guidelines link. 1 each 01/17/2025 Active Start: 10-12-2024 End: 01-17-2025 iv contrast (will be provide d with [...] contrast administration guidelines link. 1 each 10/12/2024 01/17/2025 Discontinued Start: 10-12-2024 End: 01-17-2025 iv contrast (will be provide d with [...] contrast administration guidelines link. 1 each 10/12/2024 01/17/2025 Discontinued Start: 10-12-2024 iv contrast (w ill be [...] tablet (6 sources) Quinolone Antimicrobial Start: 12-01-19 End: 12-08-19 25 take 1 tablet by mouth once daily levoFLOXacin (LEVAQUIN) 750 mg tablet Take 1 tablet by mouth once daily for 7 days. 7 tablet 11/30/2024 12/07/2024 Active magnesium chloride 598 mg delayed release oral tablet (20 sources) Start: 01-10-20 25 take 1 tablet by mouth twice daily Start: 01-19-2024 End: 03-08-2024 take 1 tablet [...] (Therapy completed) mirtazapine 15 mg oral tablet (20 sources) Start: 01-09-2025 End: 04-09-2025 take 1 tablet by mouth at bedtime mometasone furoate 0.05 mg/actuat metered dose nasal spray (20 sources) Corticosteroid Start: 02-01-2024 Start: 11-26-2023 mometasone (NA SONEX) 50 mcg/actuation nasal spray Use 2 Sprays in the nose once daily. 11/26/2023 Active naloxone hydrochloride 40 mg/ml nasal spray (7 sources) Opioid Antagonist Start: 10-29-2023 naloxone (NA RCAN) 4 mg/actuation [place] Administer 1 spray into one nostril for [...] take 1 capsule by mouth once daily ondansetron 4 mg disintegrating oral tablet (20 [...] every eight hours as needed for nausea and vomiting Start: 10-21-2023 End: 10-21-2023 ondansetron (ZOFRAN) injecti [...] tablet by mouth once daily potassium chloride 10 meq extended release oral tablet (20 sources) Start: 01-09-2025 take 1 tablet by mouth twice daily Start: 01-19-2024 End: 07-20-2024 take 1 tablet [...] sodium phosphate, monobasic 130 mg oral tablet (20 sources) Start: 12-05-2024 take 1 tablet by mouth twice daily phosphorus (L-HRVF-UCBXYNP) 250 mg tablet Take 1 tablet by [...] mouth every six hours as needed for nausea and vomiting rosuvastatin calcium 10 mg oral tablet (20 sources) HMG-CoA Reductase Inhibitor Start: 06-17-2019 End: 07-08-2025 take 1 tablet by mouth once daily tipiracil 8.19 mg / trifluridine 20 mg oral tablet (3 sources) Nucleoside Analog Antiviral, Nucleoside Metabolic Inhibitor, Thymidine Phosphorylase Inhibitor Start: 02-14-2025 trifluridine-tipirac il (LONSURF) 20-8.19 mg tablet Take 3 tablets by mouth two times a day. with food Thursday through Thursday for 2 consecutive weeks. Then off two weeks. 60 tablet 5 02/14/2025 Active zolpidem tartrate 10 mg oral tablet (20 sources) gamma-Aminobutyric Acid-ergic Agonist Start: 02-01-2024 take 1 tablet by mouth at bedtime as needed for sleep Start: 10-21-2023 End: 10-29-2023 take 10 mg [...] greater, headaches, Starting on Thu10/19/23 at 1057 take 1 tablet by esther th every eight hours as needed acetaminophen (TYLENOL) 500 mg tablet Take 500 mg by mouth every 8 hours as needed. Active [id number] 200 actuat albuterol 0.09 mg/actuat metered dose inhaler (5 sources) beta2-Adrenergic Agonist Start: 10-21-2023 End: 10-21-2023 [...] Nightly, First dose on Thu10/21/23 at 2100 azithromycin 250 mg oral tablet (6 sources) Macrolide Antimicrobial Start: 01-09-2025 End: 01-09-2025 take 2 tablets by mouth once, then take 1 tablet by mouth once daily azithromycin (ZITHROMAX Z-AYAH) 250 mg tablet Take 2 tablets by mouth one time only for 1 dose. THEN 1 TAB DAILY FOR 4 DAYS. 6 tablet 01/09/2025 01/09/2025 Start: 01-09-2025 bevacizumab-awwb 440.5 mg in NaCl 0.9% 127.62 mL (MVASI) (2 sources) Start: 08-03-2024 End: 08-03-2024 440.5 mg (5 mg/kg/dose 88.1 kg Treatment plan Recorded weight), INTRAVENOUS, Administer over 30 Minutes, ONCE, 1 dose, On Thu08/03/24 at 1000, exp 1800 08/03/24 (room temp) -- DO NOT SHAKE Refrigerate, Medication Substitution: [facility] preferred product has been replaced with the insurance mandated product Start: 07-20-2024 End: 07-20-2024 440.5 mg (5 mg/kg/dose 88.1 kg Treatment plan Recorded weight), INTRAVENOUS, Administer over 30 Minutes, ONCE, 1 dose, On Thu07/20/24 at 1100, Approx Total Volume - Expires: 07/21/24 @ 1045 - DO NOT SHAKE Refrigerate, Medication Substitution: [facility] preferred product has been replaced with the insurance mandated product bevacizumab-awwb 471.5 mg in NaCl 0.9% 128.86 mL (MVASI) (9 sources) Start: 06-08-2024 End: 06-08-2024 471.5 mg (5 mg/kg/dose 94.3 kg Treatment plan Recorded weight), INTRAVENOUS, Administer over 30 Minutes, ONCE, 1 dose, On Thu06/08/24 at 1030, exp 0900 06/18/24 (refrigerated) - DO NOT SHAKE Refrigerate, Medication Substitution: [facility] preferred product has been replaced with the insurance mandated product Start: 05-25-2024 End: 05-25-2024 471.5 mg (5 mg/kg/dose 94.3 kg Treatment plan Recorded weight), INTRAVENOUS, Administer over 30 Minutes, ONCE, 1 dose, On Thu05/25/24 at 1000, exp 1400 06/03/24 (refrigerated) -- DO NOT SHAKE Refrigerate, Medication Substitution: [facility] preferred product has been replaced with the insurance mandated product Start: 05-11-2024 End: 05-11-2024 471.5 mg (5 mg/kg/dose 94.3 kg Treatment plan Recorded weight), INTRAVENOUS, Administer over 30 Minutes, ONCE, 1 dose, On Thu05/11/24 at 1030, exp 09:45 05/11/24 (room temp) - DO NOT SHAKE Refrigerate, Medication Substitution: [facility] preferred product has been replaced with the insurance mandated product Start: 04-27-2024 End: 04-27-2024 471.5 mg (5 mg/kg/dose 94.3 kg Treatment plan Recorded weight), INTRAVENOUS, Administer over 30 Minutes, ONCE, 1 dose, On Thu04/27/24 at 1000, exp 09:45 04/28/24 (room temp) -- DO NOT SHAKE Refrigerate, Medication Substitution: [facility] preferred product has been replaced with the insurance mandated product Start: 04-13-2024 End: 04-13-2024 471.5 mg (5 mg/kg/dose 94.3 kg Treatment plan Recorded weight), INTRAVENOUS, Administer over 30 Minutes, ONCE, 1 dose, On Thu04/13/24 at 1030, exp 1400 04/22/24 (refrigerated) -- DO NOT SHAKE Refrigerate, Medication Substitution: [facility] preferred product has been replaced with the insurance mandated product Start: 03-30-2024 End: 03-30-2024 471.5 mg (5 mg/kg/dose 94.3 kg Treatment plan Recorded weight), INTRAVENOUS, Administer over 30 Minutes, ONCE, 1 dose, On Thu03/30/24 at 1030, exp 1000 04/09/24 (refrigerated) -- DO NOT SHAKE Refrigerate, Medication Substitution: [facility] preferred product has been replaced with the insurance mandated product Start: 03-02-2024 End: 03-02-2024 471.5 mg (5 mg/kg/dose 94.3 kg Treatment plan Recorded weight), INTRAVENOUS, Administer over 30 Minutes, ONCE, 1 dose, On Thu03/02/24 at 1000, Approx Total Volume - IMMEDIATE USE at room temp -- DO NOT SHAKE Refrigerate, Medication Substitution: [facility] preferred product has been replaced with the [...] Administer over 5 minutes. Start: 12-18-2023 End: 01-17-2025 Dexamethasone 4 mg tablet Di scontinued mg February 01, 2024 12:00am January 09, 2025 1:25pm Start: 10-21-2023 End: 10-21-2023 dexAMETHasone (DECADRON) inj [...] over 46 Hours, ONCE, 1 dose, On Thu12/05/24 at 1130, Expires: 12/12/24 @ (refrigerated) Hazardous [...] scheduled, First dose (after last reorder) on Thu10/22/23 at 1400, For 3 doses, Administer IV [...] Dayami Roe MD Start : 25-Mar-2022 Active 2 ml glycopyrrolate 0.2 mg/ml injection (1 [...] over 90 Minutes, ONCE, 1 dose, On Thu12/05/24 at 1000, Approx Total Volume - Expires: [...] over 2 Hours, ONCE, 1 dose, On 09/28/24 at 1130, Approx Total Volume - Expires: [...] over 2 Hours, ONCE, 1 dose, On 08/31/24 at 1030, Approx Total Volume - Expires: 09/01/24 @ 1530 PROTECT FROM LIGHT ADMINISTER CONCURRENTLY WITH OXALIPLATIN. REFRIGERATE Start: 08-17-2024 End: 08-17-2024 796 mg (400 mg/m2 1.99 m2 Tr eatment Plan BSA from Recorded weight), INTRAVENOUS, Administer over 2 Hours, ONCE, 1 dose, On 08/17/24 at 1030, Approx Total Volume - Expires: [...] over 2 Hours, ONCE, 1 dose, On 07/20/24 at 1130, Approx Total Volume - Expires: [...] 2343, For 3 doses oxaliplatin (19 sources) [facility] Start: 10-26-2024 End: 10-26-2024 119.4 mg [...] at 1100, Administer concurrently with leucovorin. exp 89906/18/24 (refrigerated) Hazardous Chemotherapy Drug: Use appropriate PPE. [...] Thu04/27/24 at 1030, Administer concurrently with leucovorin.exp 139905/05/24 (refrigerated) Hazardous Chemotherapy Drug: Use appropriate PPE. Antineoplastic Irritant with Vesicant Potential. Flush line with D5W before and after administration. Start: 04-13-2024 End: 04-13-2024 124.2 mg (60 mg/m2 2.07 m2 T reatment Plan BSA from Recorded weight), INTRAVENOUS, Administer over 2 Hours, ONCE, 1 dose, On Thu04/13/24 at 1100, Administer concurrently with leucovorin.exp 139904/21/24 (refrigerated) Hazardous Chemotherapy Drug: Use appropriate PPE. Antineoplastic Irritant with Vesicant Potential. Flush line with D5W before and after administration. Start: 03-30-2024 End: 03-30-2024 124.2 mg (60 mg/m2 2.07 m2 T reatment Plan BSA from Recorded weight), INTRAVENOUS, Administer over 2 Hours, ONCE, 1 dose, On Thu03/30/24 at 1100, Administer concurrently with leucovorin. exp 109904/07/24 (refrigerated) Hazardous Chemotherapy Drug: Use appropriate PPE. [...] at 0930, Administer concurrently with leucovorin. exp 139902/24/24 (refrigerated) Hazardous Chemotherapy Drug: Use appropriate PPE. [...] ONLY PROTECT FROM LIGHT polyethylene glycol 3350 38026 mg powder for oral solution (1 source) Osmotic Laxative Start: 2023 End: 10-29-2023 17 g, Oral, Daily, First dose on Thu10/25/23 at 1100 proparacaine hydrochloride 5 mg/ml ophthalmic [...] As needed, dry skin , Starting on 4/24/24 at 0849, Apply to nose on nose (1 source) Start: 10-20-2023 End: 10-20-2023 75 mL, Intravenous, Once in imaging, contrast, Starting on Thu10/20/23 at 1111, For 1 dose Problems Active Problems Problem Classification Problem Date Documented Da te Episodic/Chronic Abdominal pain (20 sources) Right upper quadrant pain; Translations: [Abdominal pain, right upper quadrant] Onset: 2 Resolved: 3 Episodic Aspiration pneumonitis; food/vomitus (1 source) Aspiration pneumonia; Translations: [Pneumonitis due to inhalation of food and vomit] 03-24-2025 Episodic Blindness and vision defects (3 sources) Bilateral hyperopia of eyes; Translations: [Hypermetropia, bilateral] 07-25-2024 Episodic Cancer of colon (20 sources) Adenocarcinoma of large intestine; Translations: [Malignant neoplasm of colon, unspecified] Onset: 4 10-28-2023 Chronic Cancer of colon (4 sources) History of malignant neoplasm of colon; Translations: [Personal history of other malignant neoplasm of large intestine] 02-09-2024 Episodic Cataract (1 source) Bilateral senile combined [...] Coronary atherosclerosis; Translations: [Atherosclerotic heart disease of [place] coronary artery without angina pectoris] Onset: 2 Chronic Deficiency and other anemia (20 sources) Iron deficiency anemia due to blood loss; Translations: [Iron deficiency anemia secondary to blood loss (chronic)] Onset: 4 12-16-2023 Chronic Deficiency and other anemia (1 source) Anemia in neoplastic disease; Translations: [Anemia in neoplastic disease] 01-16-2025 Chronic Deficiency and other anemia (1 source) Anemia in neoplastic disease; Translations: [Anemia in neoplastic disease] Onset: 5 Chronic Deficiency and other anemia (1 source) Iron deficiency anemia secondary to blood loss (chronic); Translations: [Iron deficiency anemia due to chronic blood loss] Onset: 4 Chronic Deficiency and other anemia (19 sources) Anemia; Translations: [Anemia, unspecified] Onset: 4 10-19-2023 Episodic Deficiency and other anemia (9 sources) Anemia, unspecified; Translations: [Anemia, unspecified] Onset: [...] lower urinry tract symp] Onset: 2 Chronic Immunizations and screening for infectious disease (20 sources) Patient encounter status; Translations: [Other specified vaccination] 12-31-2022 Episodic Malaise and fatigue (1 source) Fatigue; Translations: [Other fatigue] 05-18-2023 Episodic Miscellaneous mental health disorders (5 sources) Primary insomnia; Translations: [Primary insomnia] Onset: 3 12-31-2022 Chronic Nonspecific chest pain (20 sources) Chest pain; Translations: [Chest pain, unspecified] Onset: 2 Resolved: 3 01-28-2022 Episodic Osteoarthritis (20 sources) Degenerative joint disease involving multiple joints; Translations: [Osteoarthrosis, generalized, multiple sites] Onset: 3 12-29-2022 Chronic Other aftercare (1 source) Under care of palliative care physician; Translations: [Encounter for palliative care] 06-14-2024 Episodic Other aftercare (1 source) Post-discharge follow-up; Translations: [Encounter for follow-up examination after completed treatment for conditions other than malignant neoplasm] 01-16-2025 Episodic Other eye disorders (1 source) Bilateral [...] [Diarrhea, unspecified] 02-02-2024 Episodic Other gastrointestinal disorders (3 sources) Diarrhea; [...] Onset: 2 Episodic Other lower respiratory disease (2 sources) Hypoxia; Translations: [Hypoxemia] 11-13-2023 Episodic Other lower respiratory disease (1 source) Lower respiratory tract infection; Translations: [Unspecified acute lower respiratory infection] 06-28-2024 Episodic Other lower respiratory disease (4 sources) Orthopnea; Translations: [Orthopnea] 01-15-2022 Episodic Other nutritional; endocrine; and metabolic disorders [...] Translations: [Sore throat symptom] Onset: 3 Episodic Residual codes; unclassified (20 sources) Sleep apnea; Translations: [Unspecified sleep apnea] Onset: 3 12-29-2022 Chronic Residual codes; unclassified (20 sources) Obstructive sleep apnea syndrome; Translations: [Obstructive sleep apnea (adult) (pediatric)] 12-31-2022 Chronic Residual codes; unclassified (2 sources) Obstructive sleep apnea (adult) (pediatric); Translations: [...] tract] Onset: 4 Episodic Residual codes; unclassified (4 sources) History of antineoplastic chemotherapy; Translations: [Personal [...] bile duct] Onset: 4 Chronic Secondary malignancies (5 sources) Secondary malignant neoplasm of lung; Translations: [Secondary malignant neoplasm of unspecified lung] 10-12-2024 Chronic Secondary malignancies (1 source) Secondary malignant neoplasm of unspecified lung; Translations: [Colon cancer metastasized to lung (HCC)] Onset: 4 Chronic Spondylosis; intervertebral disc disorders; other back problems (20 sources) Arthritis of lumbosacral spine; Translations: [Lumbosacral spondylosis without myelopathy] Onset: 2 12-31-2022 Chronic Unclassified (2 sources) Colon Cancer Onset: 4 Unclassified (2 sources) As scheduled Urinary tract infections (2 sources) Acute cystitis; Translations: [Acute cystitis without hematuria] 02-02-2024 Episodic Past or Other Problems Problem Classification Problem Date Documented Da te Episodic/Chronic Acute and unspecified renal failure (1 source) Acute kidney failure, unspecified; Translations: [ANTHONY (acute kidney injury)] Onset: 5 Episodic Cardiac dysrhythmias (2 sources) Tachycardia; Translations: [Tachycardia, unspecified] Onset: 5 01-09-2025 Episodic Deficiency and other anemia (20 sources) Nutritional [...] Dehydration; Translations: [Dehydration] Onset: 5 02-02-2024 Episodic Nausea and vomiting (4 sources) Nausea and vomiting; Translations: [Nausea with vomiting, unspecified] Onset: 5 01-09-2025 Episodic Open wounds of extremities (20 sources) Open wound of finger; Translations: [Open wound of finger(s), without mention of complication] Onset: 3 Resolved: 3 12-29-2022 Episodic Other aftercare (1 source) Encounter for follow-up examination after completed treatment for conditions other than malignant neoplasm; Translations: [Hospital discharge follow-up] Onset: 5 Episodic Other aftercare (1 source) FPC (current) use of insulin; Translations: [Controlled type 2 diabetes mellitus without complication, with long-term current use of insulin (HCC)] Onset: 5 Episodic Other gastrointestinal disorders (20 sources) Diarrhea due to drug; Translations: [Toxic gastroenteritis and colitis] Onset: 5 05-24-2024 Episodic Other gastrointestinal disorders (2 sources) Diarrhea, unspecified; Translations: [Diarrhea, unspecified type] Onset: 5 Episodic Other gastrointestinal disorders (1 source) Toxic [...] vitamin B12 deficiency] Onset: 5 Episodic Other lower respiratory disease (4 sources) Shortness of breath; Translations: [Shortness of breath] Onset: 4 Episodic Other lower respiratory disease (3 sources) Productive cough ; Translations: [Productive cough] Onset: 5 01-09-2025 Episodic Other nutritional; endocrine; and metabolic [...] malignant neoplasm of prostate] Onset: 3 Episodic Pneumonia (except that caused by tuberculosis or sexually transmitted disease) (9 sources) Pneumonia; Translations: [Pneumonia, unspecified organism] Onset: 5 01-09-2025 Episodic Residual codes; unclassified (20 sources) Insomnia; Translations: [Insomnia, unspecified] Onset: 3 12-29-2022 Episodic Residual codes; unclassified (1 source) Pallor; Translations: [Pallor] Onset: 5 Episodic Rheumatoid arthritis and related disease (20 sources) Inflammatory polyarthropathy; 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] Onset: 2 Resolved: 3 Chronic Spondylosis; intervertebral disc disorders; other back problems (20 sources) Neurogenic claudication; Translations: [Spinal stenosis, lumbar region, with neurogenic claudication] Onset: 2 Episodic Unclassified (4 sources) Onset: 4 Resolved: 4 07-03-2023 Unclassified (4 sources) Metastatic colon cancer to liver (HCC) 10-12-2024 Results Test Name Value Interpretation Reference Range Facility CBC W Auto Differential pane l (Bld)on 05-02-2025 Basophils (Bld) [#/Vol] 10*3/uL Normal <0.11 [facility] Comment on above: Order Comment: Speci men Type: BLOOD SPECIMENOrdering Facility: [facility] Address: [address] [place] [address] Performed By: #### 5 7021-8 ####[facility] [id number] [place] [address] [place] Basophils/100 WBC (Bld) 0.4 % Normal [facility] Comment on above: Order Comment: Speci men Type: BLOOD SPECIMENOrdering Facility: [facility] Address: [address] [place] [address] Performed By: #### 5 7021-8 ####[facility] MILLST[facility]INC[facility] EVANSV[facility]LELIA [id number] [place] [address] [place] Differential cell count method Nom (Bld) Auto Normal [facility] Comment on above: Order Comment: Speci men Type: BLOOD SPECIMENOrdering Facility: [facility] Address: [address] [place] [address] Performed By: #### 5 7021-8 ####[facility] [id number] [place] [address] [place] Eosinophils (Bld) [#/Vol] 0.07 10*3/uL Normal <0.46 [facility] Comment on above: Order Comment: Speci men Type: BLOOD SPECIMENOrdering Facility: [facility] Address: [address] [place] [address] Performed By: #### 5 7021-8 ####[facility] [id number] [place] [address] [place] Eosinophils/100 WBC (Bld) 2.8 % Normal [facility] Comment on above: Order Comment: Speci men Type: BLOOD SPECIMENOrdering Facility: [facility] Address: [address] [place] [address] Performed By: #### 5 7021-8 ####[facility] [id number] [place] [address] [place] Erythrocyte distribution width (RBC) [Ratio] 21.1 % High 11.5-15.0 [facility] Comment on above: Order Comment: Speci men Type: BLOOD SPECIMENOrdering Facility: [facility] Address: [address] [place] [address] Performed By: #### 5 7021-8 ####[facility] [id number] [place] [address] [place] Hematocrit (Bld) [Volume fraction] 23.7 % Low 39.0-51.0 [facility] Comment on above: Order Comment: Speci men Type: BLOOD SPECIMENOrdering Facility: [facility] Address: [address] [place] [address] Performed By: #### 5 7021-8 ####[facility] [id number] [place] [address] [place] Hemoglobin (Bld) [Mass/Vol] 7.2 g/dL Low 13.0-17.0 [facility] Comment on above: Order Comment: Speci men Type: BLOOD SPECIMENOrdering Facility: [facility] Address: [address] [place] [address] Performed By: #### 5 7021-8 ####[facility] [id number] [place] [address] [place] Immature granulocytes (Bld) [#/Vol] 10*3/uL Normal <0.10 [facility] Comment on above: Order Comment: Speci men Type: BLOOD SPECIMENOrdering Facility: [facility] Address: [address] [place] [address] Performed By: #### 5 7021-8 ####[facility] [id number] [place] [address] [place] Immature granulocytes/100 WBC (Bld) 0.4 % Normal [facility] Comment on above: Order Comment: Speci men Type: BLOOD SPECIMENOrdering Facility: [facility] Address: [address] [place] [address] Performed By: #### 5 7021-8 ####[facility] [id number] [place] [address] [place] Lymphocytes (Bld) [#/Vol] 0.51 10*3/uL Low 1.00-4.00 [facility] Comment on above: Order Comment: Speci men Type: BLOOD SPECIMENOrdering Facility: [facility] Address: [address] [place] [address] Performed By: #### 5 7021-8 ####[facility] [id number] [address] [place] Lymphocytes/100 WBC (Bld) 20.3 % Normal [facility] Comment on above: Order Comment: Speci men Type: BLOOD SPECIMENOrdering Facility: [facility] Address: [address] [place] [address] Performed By: #### 5 7021-8 ####[facility] [id number] [place] [address] [place] MCH (RBC) [Entitic mass] 25.8 pg Low 26.0-34.0 [facility] Comment on above: Order Comment: Speci men Type: BLOOD SPECIMENOrdering Facility: [facility] Address: [address] [place] [address] Performed By: #### 5 7021-8 ####[facility] [id number] [place] [address] [place] MCHC (RBC) [Mass/Vol] 30.4 g/dL Low 30.5-36.0 [facility] Comment on above: Order Comment: Speci men Type: BLOOD SPECIMENOrdering Facility: [facility] Address: [address] [place] [address] Performed By: #### 5 7021-8 ####[facility] [id number] [place] [address] [place] MCV (RBC) [Entitic vol] 84.9 fL Normal 80.0-100.0 [facility] Comment on above: Order Comment: Speci men Type: BLOOD SPECIMENOrdering Facility: [facility] Address: [address] [place] [address] Performed By: #### 5 7021-8 ####[facility] MILLTOWNCLIA [id number] [place] [address] [place] Monocytes (Bld) [#/Vol] 0.35 10*3/uL Normal <0.87 [facility] Comment on above: Order Comment: Speci men Type: BLOOD SPECIMENOrdering Facility: [facility] Address: [address] [place] [address] Performed By: #### 5 7021-8 ####[facility] ERWVTLIA [id number] [place] [address] [place] Monocytes/100 WBC (Bld) 13.9 % Normal [facility] Comment on above: Order Comment: Speci men Type: BLOOD SPECIMENOrdering Facility: [facility] Address: [address] [place] [address] Performed By: #### 5 7021-8 ####[facility] [id number] [place] [address] [place] Neutrophils (Bld) [#/Vol] 1.56 10*3/uL Normal 1.45-7.50 [facility] Comment on above: Order Comment: Speci men Type: BLOOD SPECIMENOrdering Facility: [facility] Address: [address] [place] [address] Performed By: #### 5 7021-8 ####[facility] [id number] [place] [address] [place] Neutrophils/100 WBC (Bld) 62.2 % Normal [facility] Comment on above: Order Comment: Speci men Type: BLOOD SPECIMENOrdering Facility: [facility] Address: [address] [place] [address] Performed By: #### 5 7021-8 ####[facility] [id number] [place] [address] [place] Nucleated RBC (Bld) [#/Vol] 10*3/uL Normal <0.01 [facility] Comment on above: Order Comment: Speci men Type: BLOOD SPECIMENOrdering Facility: [facility] Address: [address] [place] [address] Performed By: #### 5 7021-8 ####[facility] [id number] [place] [address] [place] Nucleated RBC/100 WBC (Bld) [Ratio] 0.0 /100 WBC Normal [facility] Comment on above: Order Comment: Speci men Type: BLOOD SPECIMENOrdering Facility: [facility] Address: [address] [place] [address] Performed By: #### 5 7021-8 ####[facility] [id number] [place] [address] [place] Platelet mean volume (Bld) [Entitic vol] 9.1 fL Normal 9.0-12.7 [facility] Comment on above: Order Comment: Speci men Type: BLOOD SPECIMENOrdering Facility: [facility] Address: [address] [place] [address] Performed By: #### 5 7021-8 ####[facility] [id number] [place] [address] [place] Platelets (Bld) [#/Vol] 189 10*3/uL Normal 150-400 [facility] Comment on above: Order Comment: Speci men Type: BLOOD SPECIMENOrdering Facility: [facility] Address: [address] [place] [address] Performed By: #### 5 7021-8 ####[facility] [id number] [place] [address] [place] RBC (Bld) [#/Vol] 2.79 10*6/uL Low 4.20-6.00 [facility] Comment on above: Order Comment: Speci men Type: BLOOD SPECIMENOrdering Facility: [facility] Address: [address] [place] [address] Performed By: #### 5 7021-8 ####[facility] [id number] [place] [address] [place] WBC (Bld) [#/Vol] 2.51 10*3/uL Low 3.70-11.00 [facility] Comment on above: Order Comment: Speci men Type: BLOOD SPECIMENOrdering Facility: [facility] Address: [address] [place] [address] Performed By: #### 5 7021-8 ####[facility] [id number] [place] [address] [place] CEA SerPl-mCncon 05-02-2025 Carcinoembryonic Ag [Mass/Vol] 873.0 ng/mL High <=2.9 [facility] Comment on above: Order Comment: Speci men Type: BLOOD SPECIMENOrdering Facility: [facility] Address: [address] [place] [address] Result Comment: Carc inoembryonic antigen test is used as an aid in monitoring response to treatment or recurrence in patients with established colorectal, breast, lung, prostatic, pancreatic, and ovarian carcinomas. Clinical correlation is required.The Carcinoembryonic antigen test was performed using the Bryce Aspen Un[employer] DXI paramagnetic particle chemiluminescent immunoassay method. Results obtained with different assay methods or kits cannot be used interchangeably. Performed By: #### 2 039-6 ####[facility] LABCL[facility] [id number] [place] [address] [place] CNOVSPon 05-02-2025 CNOVSP Normal [facility] Comprehensive metabolic 2000 panelon 05-02-2025 Albumin [Mass/Vol] 3.3 g/dL Low 3.9-4.9 [facility] Comment on above: Order Comment: Speci men Type: BLOOD SPECIMENOrdering Facility: [facility] Address: [address] [place] [address] Performed By: #### 2 4323-8 ####[facility] MILLTOWNCLIA [id number] [place] [address] [place] ALP [Catalytic activity/Vol] 138 U/L High 38-113 [facility] Comment on above: Order Comment: Speci men Type: BLOOD SPECIMENOrdering Facility: [facility] Address: [address] [place] [address] Performed By: #### 2 4323-8 ####[facility] ERWNCLIA [id number] [place] [address] [place] ALT [Catalytic activity/Vol] 6 U/L Low 10-54 [facility] Comment on above: Order Comment: Speci men Type: BLOOD SPECIMENOrdering Facility: [facility] Address: [address] [place] [address] Performed By: #### 2 4323-8 ####[facility] [id number] [place] [address] [place] Anion gap [Moles/Vol] 13 mmol/L Normal 8-15 [facility] Comment on above: Order Comment: Speci men Type: BLOOD SPECIMENOrdering Facility: [facility] Address: [address] [place] [address] Performed By: #### 2 4323-8 ####[facility] [id number] [place] [address] [place] AST [Catalytic activity/Vol] 16 U/L Normal 14-40 [facility] Comment on above: Order Comment: Speci men Type: BLOOD SPECIMENOrdering Facility: [facility] Address: [address] [place] [address] Performed By: #### 2 4323-8 ####[facility]CL[facility] [id number] [place] [address] [place] Bilirubin [Mass/Vol] 1.0 mg/dL Normal 0.2-1.3 [facility] Comment on above: Order Comment: Speci men Type: BLOOD SPECIMENOrdering Facility: [facility] Address: [address] [place] [address] Performed By: #### 2 4323-8 ####[facility] [id number] [place] [address] [place] Calcium [Mass/Vol] 9.3 mg/dL Normal 8.5-10.2 [facility] Comment on above: Order Comment: Speci men Type: BLOOD SPECIMENOrdering Facility: [facility] Address: [address] [place] [address] Performed By: #### 2 4323-8 ####[facility] [id number] [place] [address] [place] Chloride [Moles/Vol] 96 mmol/L Low 98-107 [facility] Comment on above: Order Comment: Speci men Type: BLOOD SPECIMENOrdering Facility: [facility] Address: [address] [place] [address] Performed By: #### 2 4323-8 ####[facility] [id number] [place] [address] [place] CO2 [Moles/Vol] 24 mmol/L Normal 22-30 [facility] Comment on above: Order Comment: Speci men Type: BLOOD SPECIMENOrdering Facility: [facility] Address: [address] [place] [address] Performed By: #### 2 4323-8 ####[facility] [id number] [place] [address] [place] Creatinine [Mass/Vol] 0.77 mg/dL Normal 0.73-1.22 [facility] Comment on above: Order Comment: Speci men Type: BLOOD SPECIMENOrdering Facility: [facility] Address: [address] [place] [address] Performed By: #### 2 4323-8 ####[facility]ANCLI [id number] [place] [address] [place] eGFRcr SerPlBld CKD-EPI 2020 92 mL/min/1.73m??? Normal >=60 [facility] Comment on above: Order Comment: Willam robles Type: BLOOD SPECIMENOrdering Facility: [facility] Address: [address] [place] [address] Result Comment: Rod mated Glomerular Filtration Rate [...] actual GFR. Performed By: #### 2 4323-8 ####[facility]CL[facility] [id number] [place] [address] [place] Glucose [Mass/Vol] 256 mg/dL High 74-99 [facility] Comment on above: Order Comment: Willam robles Type: BLOOD SPECIMENOrdering Facility: [facility] Address: [address] [place] [address] Result Comment: The [place] [employer] (ADA) provides guidance for cutoff [...] Standards of Medical Care in Diabetes 2016, [place] [employer]. Diabetes Care. 2016.39(Suppl 1). Performed By: #### 2 4323-8 ####[facility] MILLTOWNCLIA [id number] [place] [address] [place] Potassium [Moles/Vol] 3.6 mmol/L Low 3.7-5.1 [facility] Comment on above: Order Comment: Speci men Type: BLOOD SPECIMENOrdering Facility: [facility] Address: [address] [place] [address] Performed By: #### 2 4323-8 ####[facility] ERWNCLIA [id number] [place] [address] [place] Protein [Mass/Vol] 8.0 g/dL Normal 6.3-8.0 [facility] Comment on above: Order Comment: Speci men Type: BLOOD SPECIMENOrdering Facility: [facility] Address: [address] [place] [address] Performed By: #### 2 4323-8 ####[facility] [id number] [place] [address] [place] Sodium [Moles/Vol] 133 mmol/L Low 136-144 [facility] Comment on above: Order Comment: Speci men Type: BLOOD SPECIMENOrdering Facility: [facility] Address: [address] [place] [address] Performed By: #### 2 4323-8 ####[facility] ERWNCLIA [id number] [place] [address] [place] Urea nitrogen [Mass/Vol] 16 mg/dL Normal 9-24 [facility] Comment on above: Order Comment: Speci men Type: BLOOD SPECIMENOrdering Facility: [facility] Address: [address] [place] [address] Performed By: #### 2 4323-8 ####[facility]CL[facility] [id number] [place] [address] [place] CNPNon 05-01-2025 CNPN Normal [facility] CBC W Auto Differential pane l (Bld)on 04-27-2025 Basophils (Bld) [#/Vol] 10*3/uL Normal <0.11 [facility] Comment on above: Order Comment: Speci men Type: BLOOD SPECIMENOrdering Facility: [facility] Address: [address] [place] [address] Performed By: #### 5 7021-8 ####[facility] ERWVTLIA [id number] [place] [address] [place] Basophils/100 WBC (Bld) 0.3 % Normal [facility] Comment on above: Order Comment: Speci men Type: BLOOD SPECIMENOrdering Facility: [facility] Address: [address] [place] [address] Performed By: #### 5 7021-8 ####[facility]A [id number] [place] [address] [place] Differential cell count method Nom (Bld) Auto Normal [facility] Comment on above: Order Comment: Speci men Type: BLOOD SPECIMENOrdering Facility: [facility] Address: [address] [place] [address] Performed By: #### 5 7021-8 ####[facility]A [id number] [place] [address] [place] Eosinophils (Bld) [#/Vol] 0.06 10*3/uL Normal <0.46 [facility] Comment on above: Order Comment: Speci men Type: BLOOD SPECIMENOrdering Facility: [facility] Address: [address] [place] [address] Performed By: #### 5 7021-8 ####[facility]CLIA [id number] [place] [address] [place] Eosinophils/100 WBC (Bld) 1.6 % Normal [facility] Comment on above: Order Comment: Speci men Type: BLOOD SPECIMENOrdering Facility: [facility] Address: [address] [place] [address] Performed By: #### 5 7021-8 ####[facility] ANGEL [id number] [place] [address] [place] Erythrocyte distribution width (RBC) [Ratio] 18.9 % High 11.5-15.0 [facility] Comment on above: Order Comment: Speci men Type: BLOOD SPECIMENOrdering Facility: [facility] Address: [address] [place] [address] Performed By: #### 5 7021-8 ####[facility] TEDDYBULLHEADNCBECKYMckenna [id number] [place] [address] [place] Hematocrit (Bld) [Volume fraction] 24.3 % Low 39.0-51.0 [facility] Comment on above: Order Comment: Speci men Type: BLOOD SPECIMENOrdering Facility: [facility] Address: [address] [place] [address] Performed By: #### 5 7021-8 ####[facility] FLORIDAFALGUNIA [id number] [place] [address] [place] Hemoglobin (Bld) [Mass/Vol] 7.4 g/dL Low 13.0-17.0 [facility] Comment on above: Order Comment: Speci men Type: BLOOD SPECIMENOrdering Facility: [facility] Address: [address] [place] [address] Performed By: #### 5 7021-8 ####[facility] FL[facility]IDAGIANNALIA [id number] [place] [address] [place] Immature granulocytes (Bld) [#/Vol] 0.04 10*3/uL Normal <0.10 [facility] Comment on above: Order Comment: Speci men Type: BLOOD SPECIMENOrdering Facility: [facility] Address: [address] [place] [address] Performed By: #### 5 7021-8 ####[facility]ANCLIA [id number] [place] [address] [place] Immature granulocytes/100 WBC (Bld) 1.1 % Normal [facility] Comment on above: Order Comment: Speci men Type: BLOOD SPECIMENOrdering Facility: [facility] Address: [address] [place] [address] Performed By: #### 5 7021-8 ####[facility] [id number] [place] [address] [place] Lymphocytes (Bld) [#/Vol] 0.52 10*3/uL Low 1.00-4.00 [facility] Comment on above: Order Comment: Speci men Type: BLOOD SPECIMENOrdering Facility: [facility] Address: [address] [place] [address] Performed By: #### 5 7021-8 ####[facility] [id number] [place] [address] [place] Lymphocytes/100 WBC (Bld) 13.8 % Normal [facility] Comment on above: Order Comment: Speci men Type: BLOOD SPECIMENOrdering Facility: [facility] Address: [address] [place] [address] Performed By: #### 5 7021-8 ####[facility] [id number] [place] [address] [place] MCH (RBC) [Entitic mass] 25.5 pg Low 26.0-34.0 [facility] Comment on above: Order Comment: Speci men Type: BLOOD SPECIMENOrdering Facility: [facility] Address: [address] [place] [address] Performed By: #### 5 7021-8 ####[facility] [id number] [place] [address] [place] MCHC (RBC) [Mass/Vol] 30.5 g/dL Normal 30.5-36.0 [facility] Comment on above: Order Comment: Speci men Type: BLOOD SPECIMENOrdering Facility: [facility] Address: [address] [place] [address] Performed By: #### 5 7021-8 ####[facility] [id number] [place] [address] [place] MCV (RBC) [Entitic vol] 83.8 fL Normal 80.0-100.0 [facility] Comment on above: Order Comment: Speci men Type: BLOOD SPECIMENOrdering Facility: [facility] Address: [address] [place] [address] Performed By: #### 5 7021-8 ####[facility] [id number] [place] [address] [place] Monocytes (Bld) [#/Vol] 0.23 10*3/uL Normal <0.87 [facility] Comment on above: Order Comment: Speci men Type: BLOOD SPECIMENOrdering Facility: [facility] Address: [address] [place] [address] Performed By: #### 5 7021-8 ####[facility] [id number] [place] [address] [place] Monocytes/100 WBC (Bld) 6.1 % Normal [facility] Comment on above: Order Comment: Speci men Type: BLOOD SPECIMENOrdering Facility: [facility] Address: [address] [place] [address] Performed By: #### 5 7021-8 ####[facility] [id number] [place] [address] [place] Neutrophils (Bld) [#/Vol] 2.90 10*3/uL Normal 1.45-7.50 [facility] Comment on above: Order Comment: Speci men Type: BLOOD SPECIMENOrdering Facility: [facility] Address: [address] [place] [address] Performed By: #### 5 7021-8 ####[facility] TEDDYGANESH [id number] [place] [address] [place] Neutrophils/100 WBC (Bld) 77.1 % Normal [facility] Comment on above: Order Comment: Speci men Type: BLOOD SPECIMENOrdering Facility: [facility] Address: [address] [place] [address] Performed By: #### 5 7021-8 ####[facility]IDABANG [id number] [place] [address] [place] Nucleated RBC (Bld) [#/Vol] 10*3/uL Normal <0.01 [facility] Comment on above: Order Comment: Speci men Type: BLOOD SPECIMENOrdering Facility: [facility] Address: [address] [place] [address] Performed By: #### 5 7021-8 ####[facility]IDANCMckenna [id number] [place] [address] [place] Nucleated RBC/100 WBC (Bld) [Ratio] 0.0 /100 WBC Normal [facility] Comment on above: Order Comment: Speci men Type: BLOOD SPECIMENOrdering Facility: [facility] Address: [address] [place] [address] Performed By: #### 5 7021-8 ####[facility] [id number] [place] [address] [place] Platelet mean volume (Bld) [Entitic vol] 9.1 fL Normal 9.0-12.7 [facility] Comment on above: Order Comment: Speci men Type: BLOOD SPECIMENOrdering Facility: [facility] Address: [address] [place] [address] Performed By: #### 5 7021-8 ####[facility]CL[facility] [id number] [place] [address] [place] Platelets (Bld) [#/Vol] 175 10*3/uL Normal 150-400 [facility] Comment on above: Order Comment: Speci men Type: BLOOD SPECIMENOrdering Facility: [facility] Address: [address] [place] [address] Performed By: #### 5 7021-8 ####[facility]CL[facility] [id number] [place] [address] [place] RBC (Bld) [#/Vol] 2.90 10*6/uL Low 4.20-6.00 [facility] Comment on above: Order Comment: Speci men Type: BLOOD SPECIMENOrdering Facility: [facility] Address: [address] [place] [address] Performed By: #### 5 7021-8 ####[facility] [id number] [place] [address] [place] WBC (Bld) [#/Vol] 3.76 10*3/uL Normal 3.70-11.00 [facility] Comment on above: Order Comment: Speci men Type: BLOOD SPECIMENOrdering Facility: [facility] Address: [address] [place] [address] Performed By: #### 5 7021-8 ####[facility]ALL[facility] [id number] [place] [address] [place] CNPNon 04-27-2025 CNPN Normal [facility] BRCon 04-20-[address] [facility] Comment on above: Result Comment: [id number] OP RC TRANSFUSED 04/21/25 0917 Performed By: #### B BETY, BTS #### [facility] [address] [facility]. [place], [place], [id number] CBC W Auto Differential pane l (Bld)on 04-20-2025 Basophils (Bld) [#/Vol] 0.03 10*3/uL Normal <0.11 [facility] Comment on above: Order Comment: Speci men Type: BLOOD SPECIMENOrdering Facility: [facility] Address: [address] [place] [address] Performed By: #### 5 7021-8 ####[facility] ERWVTLIA [id number] [place] [address] [place] Basophils/100 WBC (Bld) 0.4 % Normal [facility] Comment on above: Order Comment: Speci men Type: BLOOD SPECIMENOrdering Facility: [facility] Address: [address] [place] [address] Performed By: #### 5 7021-8 ####[facility] [id number] [place] [address] [place] Differential cell count method Nom (Bld) Auto Normal [facility] Comment on above: Order Comment: Speci men Type: BLOOD SPECIMENOrdering Facility: [facility] Address: [address] [place] [address] Performed By: #### 5 7021-8 ####[facility] [id number] [place] [address] [place] Eosinophils (Bld) [#/Vol] 0.15 10*3/uL Normal <0.46 [facility] Comment on above: Order Comment: Speci men Type: BLOOD SPECIMENOrdering Facility: [facility] Address: [address] [place] [address] Performed By: #### 5 7021-8 ####[facility] [id number] [place] [address] [place] Eosinophils/100 WBC (Bld) 2.2 % Normal [facility] Comment on above: Order Comment: Speci men Type: BLOOD SPECIMENOrdering Facility: [facility] Address: [address] [place] [address] Performed By: #### 5 7021-8 ####[facility] ANGEL [id number] [place] [address] [place] Erythrocyte distribution width (RBC) [Ratio] 18.6 % High 11.5-15.0 [facility] Comment on above: Order Comment: Speci men Type: BLOOD SPECIMENOrdering Facility: [facility] Address: [address] [place] [address] Performed By: #### 5 7021-8 ####[facility]CC[facility] [id number] [place] [address] [place] Hematocrit (Bld) [Volume fraction] 24.0 % Low 39.0-51.0 [facility] Comment on above: Order Comment: Speci men Type: BLOOD SPECIMENOrdering Facility: [facility] Address: [address] [place] [address] Performed By: #### 5 7021-8 ####[facility]ITALCARLO [id number] [place] [address] [place] Hemoglobin (Bld) [Mass/Vol] 7.3 g/dL Low 13.0-17.0 [facility] Comment on above: Order Comment: Speci men Type: BLOOD SPECIMENOrdering Facility: [facility] Address: [address] [place] [address] Performed By: #### 5 7021-8 ####[facility]CL[facility] [id number] [place] [address] [place] Immature granulocytes (Bld) [#/Vol] 0.04 10*3/uL Normal <0.10 [facility] Comment on above: Order Comment: Speci men Type: BLOOD SPECIMENOrdering Facility: [facility] Address: [address] [place] [address] Performed By: #### 5 7021-8 ####[facility] [id number] [place] [address] [place] Immature granulocytes/100 WBC (Bld) 0.6 % Normal [facility] Comment on above: Order Comment: Speci men Type: BLOOD SPECIMENOrdering Facility: [facility] Address: [address] [place] [address] Performed By: #### 5 7021-8 ####[facility] [id number] [place] [address] [place] Lymphocytes (Bld) [#/Vol] 0.73 10*3/uL Low 1.00-4.00 [facility] Comment on above: Order Comment: Speci men Type: BLOOD SPECIMENOrdering Facility: [facility] Address: [address] [place] [address] Performed By: #### 5 7021-8 ####[facility] [id number] [place] [address] [place] Lymphocytes/100 WBC (Bld) 10.8 % Normal [facility] Comment on above: Order Comment: Speci men Type: BLOOD SPECIMENOrdering Facility: [facility] Address: [address] [place] [address] Performed By: #### 5 7021-8 ####[facility] [id number] [place] [address] [place] MCH (RBC) [Entitic mass] 25.4 pg Low 26.0-34.0 [facility] Comment on above: Order Comment: Speci men Type: BLOOD SPECIMENOrdering Facility: [facility] Address: [address] [place] [address] Performed By: #### 5 7021-8 ####[facility] [id number] [place] [address] [place] MCHC (RBC) [Mass/Vol] 30.4 g/dL Low 30.5-36.0 [facility] Comment on above: Order Comment: Speci men Type: BLOOD SPECIMENOrdering Facility: [facility] Address: [address] [place] [address] Performed By: #### 5 7021-8 ####[facility] [id number] [place] [address] [place] MCV (RBC) [Entitic vol] 83.6 fL Normal 80.0-100.0 [facility] Comment on above: Order Comment: Speci men Type: BLOOD SPECIMENOrdering Facility: [facility] Address: [address] [place] [address] Performed By: #### 5 7021-8 ####[facility] [id number] [place] [address] [place] Monocytes (Bld) [#/Vol] 0.25 10*3/uL Normal <0.87 [facility] Comment on above: Order Comment: Speci men Type: BLOOD SPECIMENOrdering Facility: [facility] Address: [address] [place] [address] Performed By: #### 5 7021-8 ####[facility] [id number] [place] [address] [place] Monocytes/100 WBC (Bld) 3.7 % Normal [facility] Comment on above: Order Comment: Speci men Type: BLOOD SPECIMENOrdering Facility: [facility] Address: [address] [place] [address] Performed By: #### 5 7021-8 ####[facility] [id number] [place] [address] [place] Neutrophils (Bld) [#/Vol] 5.57 10*3/uL Normal 1.45-7.50 [facility] Comment on above: Order Comment: Speci men Type: BLOOD SPECIMENOrdering Facility: [facility] Address: [address] [place] [address] Performed By: #### 5 7021-8 ####[facility] TEDDYGANESH [id number] [place] [address] [place] Neutrophils/100 WBC (Bld) 82.3 % Normal [facility] Comment on above: Order Comment: Speci men Type: BLOOD SPECIMENOrdering Facility: [facility] Address: [address] [place] [address] Performed By: #### 5 7021-8 ####[facility]NAL[facility] [id number] [place] [address] [place] Nucleated RBC (Bld) [#/Vol] 10*3/uL Normal <0.01 [facility] Comment on above: Order Comment: Speci men Type: BLOOD SPECIMENOrdering Facility: [facility] Address: [address] [place] [address] Performed By: #### 5 7021-8 ####[facility]ENTERMckenna [id number] [place] [address] [place] Nucleated RBC/100 WBC (Bld) [Ratio] 0.0 /100 WBC Normal [facility] Comment on above: Order Comment: Speci men Type: BLOOD SPECIMENOrdering Facility: [facility] Address: [address] [place] [address] Performed By: #### 5 7021-8 ####[facility] [id number] [place] [address] [place] Platelet mean volume (Bld) [Entitic vol] 9.0 fL Normal 9.0-12.7 [facility] Comment on above: Order Comment: Speci men Type: BLOOD SPECIMENOrdering Facility: [facility] Address: [address] [place] [address] Performed By: #### 5 7021-8 ####[facility]CL[facility] [id number] [place] [address] [place] Platelets (Bld) [#/Vol] 210 10*3/uL Normal 150-400 [facility] Comment on above: Order Comment: Speci men Type: BLOOD SPECIMENOrdering Facility: [facility] Address: [address] [place] [address] Performed By: #### 5 7021-8 ####[facility] [id number] [place] [address] [place] RBC (Bld) [#/Vol] 2.87 10*6/uL Low 4.20-6.00 [facility] Comment on above: Order Comment: Speci men Type: BLOOD SPECIMENOrdering Facility: [facility] Address: [address] [place] [address] Performed By: #### 5 7021-8 ####[facility] [id number] [place] [address] [place] WBC (Bld) [#/Vol] 6.77 10*3/uL Normal 3.70-11.00 [facility] Comment on above: Order Comment: Speci men Type: BLOOD SPECIMENOrdering Facility: [facility] Address: [address] [place] [address] Performed By: #### 5 7021-8 ####[facility] [id number] [place] [address] [place] CNPNon 04-20-2025 CNPN Normal [facility] Type AND Screenon 04-20-2025 ABO and Rh group Nom (Bld) Blood group O Rh(D) positive Normal [facility] Comment on above: Order Comment: PRETR ANSFUSION HGB = 7.3 HCT = 24.0 PERFORMED AT [facility] PRETRANSFUSION PLT = 210 PERFORMED AT [facility] 04/21/2025 @ 0900 N Y A Performed By: #### B RC, BTS #### [facility] [address] [place], [address] [facility]17[facility]2025 [facility] CNOVSPon 04-11-2025 CNOVSP [facility] CNPNon 04-09-2025 CNPN Telephone (MEPRAD) -- DIPTI SIERRA ([id number]) 1945 M Date Time Provider Department 04/09/25 FRED DAVEY During your visit today, we recorded the following information about you: Fred Davey MD 04/09/2025 5:22 PM Signed rifluridine-tipiracil (LONSURF) 20-8.19 mg tablet 60 tablet 5 02/14/2025 -- Sig: Take 3 tablets by mouth two times a day. with food Thursday through Thursday for 2 consecutive weeks. Then off two weeks. Sent to pharmacy as: trifluridine-tipiracil (LONSURF) 20-8.19 mg tablet Class: [facility] Patient requested to go over new medication that he is planning to start in AM. I went over lonsurf medication as was prescribed by Dr. Aarti Bar in detail. Fred Davey MD April 09, 2025 5:22 PM Allergies As of Date: 04/09/2025 Noted Allergy Reaction LISINOPRIL 12/15/2023 7 - Swelling METFORMIN 12/15/2023 8 - GI Upset Date Reviewed: 02/14/2025 Reviewed by: William Corbett MA - Fully Assessed Reason for Visit: Returning Patient's Call [408] Cmt: Lonsurf directions Prescriptions as of 04/09/2025 - trifluridine-tipiracil (LONSURF) 20-8.19 mg tablet Take 3 tablets by mouth two times a day. with food Thursday through Thursday for 2 consecutive weeks. Then off two weeks. - iv contrast (will be provided with radiology [...] in the CT contrast administration guidelines link. - iv contrast (will be provided with radiology [...] in the CT contrast administration guidelines link. - rosuvastatin (CRESTOR) 10 mg tablet Take 1 tablet by mouth once daily. - omeprazole (PRILOSEC) 40 mg capsule Take 1 capsule by mouth once daily. - mirtazapine (REMERON) 15 mg tablet Take 1 tablet by mouth daily at bedtime. - diphenoxylate-atropine (LOMOTIL) 2.5-0.025 mg per tablet Take 2 tablets by mouth every 6 hours as needed for diarrhea for up to 7 days. - acyclovir (ZOVIRAX) 400 mg tablet Take 1 tablet by mouth two times a day. - phosphorus (V-SJUP-EOATEBL) 250 mg tablet Take 1 tablet by mouth two times a day. - hydroCHLOROthiazide 12.5 mg tablet Take 1 tablet by mouth once daily. - pioglitazone (ACTOS) 30 mg tablet Take 1 tablet by mouth once daily. - enteric contrast (will be provided with radiology test) For CT ABD/PEL W IVCON Routine order Administer, As Directed One Time Only, via Oral, Rectal, both Oral and Rectal, Enteric Tube, Stoma or Indwelling Catheter, Enteric Contrast as designated per enteric contrast guidelines - potassium chloride (K-TAB) 10 mEq tablet Take 1 tablet by mouth two times a day. - Magnesium Chloride (SLOW-MAG) 71.5 mg TbEC Take 71.5 mg by mouth once daily. - aspirin, enteric coated (ASPIRIN, ENTERIC COATED) 81 mg EC tablet Take 81 mg by mouth once daily. - insulin glargine,hum.rec.anlog (LANTUS SOLOSTAR U-100 INSULIN SUBCUTANEOUS) Inject 20 Units subcutaneously as directed. 20 units once daily if sugar greater than 200 - Lactobacillus acidophilus (ACIDOPHILUS) cap Take 1 capsule by mouth once daily. - lidocaine-prilocaine (EMLA) 2.5-2.5 % cream Apply to affected area as needed. - prochlorperazine (COMPAZINE) 10 mg tablet Take 1 tablet by mouth every 6 hours as needed. - ondansetron (ZOFRAN) 8 mg tablet Take 1 tablet by mouth every 8 hours as needed for nausea/vomiting. - zolpidem (AMBIEN) 5 mg tablet Take 10 mg by mouth at bedtime as needed. - mometasone (NASONEX) 50 mcg/actuation nasal spray Use 2 Sprays in the nose once daily. - azelastine 0.1% nasal spray Use 2 Sprays in each nostril two times a day. - acetaminophen (TYLENOL) 500 mg tablet Take 500 mg by mouth every 8 hours as needed. 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 Normal [facility] CBC W Auto Differential pane l (Bld)on 04-07-2025 Basophils (Bld) [#/Vol] 0.07 10*3/uL Normal <0.11 [facility] Comment on above: Order Comment: Speci men Type: BLOOD SPECIMENOrdering Facility: [facility] Address: [address] [place] [address] Performed By: #### 5 7021-8 ####[facility] MILLWNCLIA [id number] [place] [address] [place] Basophils/100 WBC (Bld) 0.7 % Normal [facility] Comment on above: Order Comment: Speci men Type: BLOOD SPECIMENOrdering Facility: [facility] Address: [address] [place] [address] Performed By: #### 5 7021-8 ####[facility] [id number] [place] [address] [place] Differential cell count method Nom (Bld) Auto Normal [facility] Comment on above: Order Comment: Speci men Type: BLOOD SPECIMENOrdering Facility: [facility] Address: [address] [place] [address] Performed By: #### 5 7021-8 ####[facility] [id number] [place] [address] [place] Eosinophils (Bld) [#/Vol] 0.21 10*3/uL Normal <0.46 [facility] Comment on above: Order Comment: Speci men Type: BLOOD SPECIMENOrdering Facility: [facility] Address: [address] [place] [address] Performed By: #### 5 7021-8 ####[facility] [id number] [place] [address] [place] Eosinophils/100 WBC (Bld) 2.0 % Normal [facility] Comment on above: Order Comment: Speci men Type: BLOOD SPECIMENOrdering Facility: [facility] Address: [address] [place] [address] Performed By: #### 5 7021-8 ####[facility] [id number] [place] [address] [place] Erythrocyte distribution width (RBC) [Ratio] 18.1 % High 11.5-15.0 [facility] Comment on above: Order Comment: Speci men Type: BLOOD SPECIMENOrdering Facility: [facility] Address: [address] [place] [address] Performed By: #### 5 7021-8 ####[facility] [id number] [place] [address] [place] Hematocrit (Bld) [Volume fraction] 27.3 % Low 39.0-51.0 [facility] Comment on above: Order Comment: Speci men Type: BLOOD SPECIMENOrdering Facility: [facility] Address: [address] [place] [address] Performed By: #### 5 7021-8 ####[facility] [id number] [place] [address] [place] Hemoglobin (Bld) [Mass/Vol] 8.2 g/dL Low 13.0-17.0 [facility] Comment on above: Order Comment: Speci men Type: BLOOD SPECIMENOrdering Facility: [facility] Address: [address] [place] [address] Performed By: #### 5 7021-8 ####[facility] [id number] [place] [address] [place] Immature granulocytes (Bld) [#/Vol] 0.09 10*3/uL Normal <0.10 [facility] Comment on above: Order Comment: Speci men Type: BLOOD SPECIMENOrdering Facility: [facility] Address: [address] [place] [address] Performed By: #### 5 7021-8 ####[facility] [id number] [place] [address] [place] Immature granulocytes/100 WBC (Bld) 0.9 % Normal [facility] Comment on above: Order Comment: Speci men Type: BLOOD SPECIMENOrdering Facility: [facility] Address: [address] [place] [address] Performed By: #### 5 7021-8 ####[facility] [id number] [place] [address] [place] Lymphocytes (Bld) [#/Vol] 0.70 10*3/uL Low 1.00-4.00 [facility] Comment on above: Order Comment: Speci men Type: BLOOD SPECIMENOrdering Facility: [facility] Address: [address] [place] [address] Performed By: #### 5 7021-8 ####[facility] [id number] [place] [address] [place] Lymphocytes/100 WBC (Bld) 6.8 % Normal [facility] Comment on above: Order Comment: Speci men Type: BLOOD SPECIMENOrdering Facility: [facility] Address: [address] [place] [address] Performed By: #### 5 7021-8 ####[facility] [id number] [place] [address] [place] MCH (RBC) [Entitic mass] 25.2 pg Low 26.0-34.0 [facility] Comment on above: Order Comment: Speci men Type: BLOOD SPECIMENOrdering Facility: [facility] Address: [address] [place] [address] Performed By: #### 5 7021-8 ####[facility] [id number] [place] [address] [place] MCHC (RBC) [Mass/Vol] 30.0 g/dL Low 30.5-36.0 [facility] Comment on above: Order Comment: Speci men Type: BLOOD SPECIMENOrdering Facility: [facility] Address: [address] [place] [address] Performed By: #### 5 7021-8 ####[facility] TEDDYWNCLIA [id number] [place] [address] [place] MCV (RBC) [Entitic vol] 83.7 fL Normal 80.0-100.0 [facility] Comment on above: Order Comment: Speci men Type: BLOOD SPECIMENOrdering Facility: [facility] Address: [address] [place] [address] Performed By: #### 5 7021-8 ####[facility] [id number] [place] [address] [place] Monocytes (Bld) [#/Vol] 0.64 10*3/uL Normal <0.87 [facility] Comment on above: Order Comment: Speci men Type: BLOOD SPECIMENOrdering Facility: [facility] Address: [address] [place] [address] Performed By: #### 5 7021-8 ####[facility] [id number] [place] [address] [place] Monocytes/100 WBC (Bld) 6.2 % Normal [facility] Comment on above: Order Comment: Speci men Type: BLOOD SPECIMENOrdering Facility: [facility] Address: [address] [place] [address] Performed By: #### 5 7021-8 ####[facility] [id number] [place] [address] [place] Neutrophils (Bld) [#/Vol] 8.61 10*3/uL High 1.45-7.50 [facility] Comment on above: Order Comment: Speci men Type: BLOOD SPECIMENOrdering Facility: [facility] Address: [address] [place] [address] Performed By: #### 5 7021-8 ####[facility] [id number] [place] [address] [place] Neutrophils/100 WBC (Bld) 83.4 % Normal [facility] Comment on above: Order Comment: Speci men Type: BLOOD SPECIMENOrdering Facility: [facility] Address: [address] [place] [address] Performed By: #### 5 7021-8 ####[facility] [id number] [place] [address] [place] Nucleated RBC (Bld) [#/Vol] 10*3/uL Normal <0.01 [facility] Comment on above: Order Comment: Speci men Type: BLOOD SPECIMENOrdering Facility: [facility] Address: [address] [place] [address] Performed By: #### 5 7021-8 ####[facility] [id number] [place] [address] [place] Nucleated RBC/100 WBC (Bld) [Ratio] 0.0 /100 WBC Normal [facility] Comment on above: Order Comment: Speci men Type: BLOOD SPECIMENOrdering Facility: [facility] Address: [address] [place] [address] Performed By: #### 5 7021-8 ####[facility] [id number] [place] [address] [place] Platelet mean volume (Bld) [Entitic vol] 9.0 fL Normal 9.0-12.7 [facility] Comment on above: Order Comment: Speci men Type: BLOOD SPECIMENOrdering Facility: [facility] Address: [address] [place] [address] Performed By: #### 5 7021-8 ####[facility] [id number] [place] [address] [place] Platelets (Bld) [#/Vol] 356 10*3/uL Normal 150-400 [facility] Comment on above: Order Comment: Speci men Type: BLOOD SPECIMENOrdering Facility: [facility] Address: [address] [place] [address] Performed By: #### 5 7021-8 ####[facility]CL[facility] [id number] [place] [address] [place] RBC (Bld) [#/Vol] 3.26 10*6/uL Low 4.20-6.00 [facility] Comment on above: Order Comment: Speci men Type: BLOOD SPECIMENOrdering Facility: [facility] Address: [address] [place] [address] Performed By: #### 5 7021-8 ####[facility] [id number] [place] [address] [place] WBC (Bld) [#/Vol] 10.32 10*3/uL Normal 3.70-11.00 [facility] Comment on above: Order Comment: Speci men Type: BLOOD SPECIMENOrdering Facility: [facility] Address: [address] [place] [address] Performed By: #### 5 7021-8 ####[facility] [id number] [place] [address] [place] CEA SerPl-ncon 04-07-2025 Carcinoembryonic Ag [Mass/Vol] 676.1 ng/mL High <=2.9 [facility] Comment on above: Order Comment: Speci men Type: BLOOD SPECIMENOrdering Facility: [facility] Address: [address] [place] [address] Result Comment: Carc inoembryonic antigen test is used as an aid in monitoring response to treatment or recurrence in patients with established colorectal, breast, lung, prostatic, pancreatic, and ovarian carcinomas. Clinical correlation is required.The Carcinoembryonic antigen test was performed using the [employer] Unicel DXI paramagnetic particle chemiluminescent immunoassay method. Results obtained with different assay methods or kits cannot be used interchangeably. Performed By: #### 2 039-6 ####[facility] LABCLIA [id number] [place] [address] [address] [place] CNPNon 04-07-2025 CNPN Normal [facility] Comprehensive metabolic 2000 panelon 04-07-2025 Albumin [Mass/Vol] 3.3 g/dL Low 3.9-4.9 [facility] Comment on above: Order Comment: Speci men Type: BLOOD SPECIMENOrdering Facility: [facility] Address: [address] [place] [address] Performed By: #### 1 9123-9, 75031-4 ####[facility] MILLTOWNCLIA [id number] [place] [address] [place] ALP [Catalytic activity/Vol] 172 U/L High 38-113 [facility] Comment on above: Order Comment: Speci men Type: BLOOD SPECIMENOrdering Facility: [facility] Address: [address] [place] [address] Performed By: #### 1 9123-9, 79223-5 ####[facility] MILLTOWNCLIA [id number] [place] [address] [place] ALT [Catalytic activity/Vol] 10 U/L Normal 10-54 [facility] Comment on above: Order Comment: Speci men Type: BLOOD SPECIMENOrdering Facility: [facility] Address: [address] [place] [address] Performed By: #### 1 9123-9, 92811-4 ####[facility] MILLTOWNCLIA [id number] [place] [address] [place] Anion gap [Moles/Vol] 15 mmol/L Normal 8-15 [facility] Comment on above: Order Comment: Speci men Type: BLOOD SPECIMENOrdering Facility: [facility] Address: [address] [place] [address] Performed By: #### 1 9123-9, 05473-5 ####[facility] MILLTOWNCLIA [id number] [place] [address] [place] AST [Catalytic activity/Vol] 27 U/L Normal 14-40 [facility] Comment on above: Order Comment: Speci men Type: BLOOD SPECIMENOrdering Facility: [facility] Address: [address] [place] [address] Performed By: #### 1 9123-9, 20570-2 ####[facility]CL[facility] [id number] [place] [address] [place] Bilirubin [Mass/Vol] 0.5 mg/dL Normal 0.2-1.3 [facility] Comment on above: Order Comment: Speci men Type: BLOOD SPECIMENOrdering Facility: [facility] Address: [address] [place] [address] Performed By: #### 1 9123-9, 15553-9 ####[facility] FLORIDAGIANNALIMckenna [id number] [place] [address] [place] Calcium [Mass/Vol] 9.7 mg/dL Normal 8.5-10.2 [facility] Comment on above: Order Comment: Speci men Type: BLOOD SPECIMENOrdering Facility: [facility] Address: [address] [place] [address] Performed By: #### 1 9123-9, 48822-9 ####[facility] [id number] [place] [address] [place] Chloride [Moles/Vol] 95 mmol/L Low 98-107 [facility] Comment on above: Order Comment: Speci men Type: BLOOD SPECIMENOrdering Facility: [facility] Address: [address] [place] [address] Performed By: #### 1 9123-9, 59341-6 ####[facility] MILLBULLHEADNCLIA [id number] [place] [address] [place] CO2 [Moles/Vol] 23 mmol/L Normal 22-30 [facility] Comment on above: Order Comment: Speci men Type: BLOOD SPECIMENOrdering Facility: [facility] Address: [address] [place] [address] Performed By: #### 1 9123-9, 93415-5 ####[facility] [id number] [place] [address] [place] Creatinine [Mass/Vol] 0.92 mg/dL Normal 0.73-1.22 [facility] Comment on above: Order Comment: Speci men Type: BLOOD SPECIMENOrdering Facility: [facility] Address: [address] [place] [address] Performed By: #### 1 9123-9, 49266-1 ####[facility] [id number] [place] [address] [place] eGFRcr SerPlBld CKD-EPI 2020 86 mL/min/1.73m??? Normal >=60 [facility] Comment on above: Order Comment: Speci men Type: BLOOD SPECIMENOrdering Facility: [facility] Address: [address] [place] [address] Result Comment: Rod mated Glomerular Filtration Rate [...] actual GFR. Performed By: #### 1 9123-9, 47514-9 ####[facility] [id number] [place] [address] [place] Glucose [Mass/Vol] 292 mg/dL High 74-99 [facility] Comment on above: Order Comment: Speci men Type: BLOOD SPECIMENOrdering Facility: [facility] Address: [address] [place], [place] [address] Result Comment: The [place] [employer] (ADA) provides guidance for cutoff [...] Standards of Medical Care in Diabetes 2016, [place] [employer]. Diabetes Care. 2016.39(Suppl 1). Performed By: #### 1 9123-9, 87241-8 ####[facility] [id number] [place] [address] [place] Potassium [Moles/Vol] 3.6 mmol/L Low 3.7-5.1 [facility] Comment on above: Order Comment: Speci men Type: BLOOD SPECIMENOrdering Facility: [facility] Address: [address] [address] Performed By: #### 1 9123-9, 86901-2 ####[facility] [id number] [place] [address] [place] Protein [Mass/Vol] 9.0 g/dL High 6.3-8.0 [facility] Comment on above: Order Comment: Speci men Type: BLOOD SPECIMENOrdering Facility: [facility] Address: [address] [address] Performed By: #### 1 9123-9, 80538-7 ####[facility] [id number] [place] [address] [place] Sodium [Moles/Vol] 133 mmol/L Low 136-144 [facility] Comment on above: Order Comment: Speci men Type: BLOOD SPECIMENOrdering Facility: [facility] Address: [address] [place], [place] [address] Performed By: #### 1 9123-9, 40840-4 ####[facility] TEDDYBULLHEADNCA [id number] [place] [address] [place] Urea nitrogen [Mass/Vol] 15 mg/dL Normal 9-24 [facility] Comment on above: Order Comment: Speci men Type: BLOOD SPECIMENOrdering Facility: [facility] Address: [address] [place] [address] Performed By: #### 1 9123-9, 53846-6 ####[facility]CL[facility] [id number] [place] [address] [place] Magnesium SerPl-mCncon 04-07 Magnesium [Mass/Vol] 2.0 mg/dL Normal 1.7-2.3 [facility] Comment on above: Order Comment: Speci men Type: BLOOD SPECIMENOrdering Facility: [facility] Address: [address] [place] [address] Performed By: #### 1 9123-9, 11334-5 ####[facility] [id number] [place] [address] [place] CNPNon 04-03-2025 CNPN Normal [facility] CNPNon 03-28-2025 CNPN Normal [facility] 12 Lead EKGon 03-24-2025 12 Lead EKG [facility] [address] [place] [address] 12 Lead EKG 03/24/25 1011 MR#: [id number] Acct: [id number] Name: DIPTI SIERRA Rep #: [id number] : 1945 79 From: Driss Martinez MD Attending Dr: Status: DEP ER Ordering Dr: Afsaneh Olson DO Date: 03/24/25 Location: ED Sex: M C Admitted: Test Reason : GENERAL Blood Pressure : */* mmHG Vent. Rate : 83 BPM Atrial Rate : 83 BPM P-R Int : 130 ms QRS Dur : 84 ms QT Int : 404 ms P-R-T Axes : 43 28 30 degrees QTcB Int : 474 ms Normal sinus rhythm Normal ECG Confirmed by DRISS MARTINEZ ([id number]), industrial editor JIM IBARRA ([id number]) on 03/27/2025 9:07:02 AM Referred By: Confirmed By: DRISS MARTINEZ 03/27/25906 Driss Martinez MD CC: Dr. Chaitanya Puri MD; Dr. Afsaneh Olson, DO Signed Normal [facility] Absolute lymphocyte countOrd ered By: Afsaneh Olson on 03-24-2025 Lymphocytes Auto (Unsp spec) [#/Vol] 0.63 10*3/uL Low 0.83-4.51 [facility] Absolute neutrophil countOrd ered By: Afsaneh Olson on 03-24-2025 Neutrophils (Bld) [#/Vol] 11.6 10*3/uL High 2.0-7.7 [facility] Anion gap in Serum or Plasma Ordered By: Afsaneh Olson on 03-24-2025 Anion gap [Moles/Vol] 10 mmol/L 5-15 [facility] Automated lymphocyte count a s percentage of total leukocytesOrdered By: Afsaneh Olson on 03-24-2025 Lymphocytes/100 WBC Auto (Unsp spec) 4.8 % Low 19-41 [facility] BRCon 03-24-[address] [facility] Comment on above: Result Comment: [id number] OP RC TRANSFUSED 03/24/25 1305 Performed By: #### L 501.080 #### [facility] [place], [address] BUN/creatinine ratioOrdered By: Afsaneh Olson on 03-24-2025 Urea nitrogen/Creatinine [Mass ratio] 14.4 mg/mg 10-20 [facility] Basic Metabolic Profile (BMP )on 03-24-2025 BUN/CRE 14.4 RATIO Normal 10-20 [facility] Comment on above: Performed By: #### Dinesh ALBERT, BTS #### [facility] [address] [place], [address] Calcium [Mass/Vol] 8.1 mg/dL Normal 7.6-11.0 [facility] Comment on above: Performed By: #### Dinesh ALBERT, BTS #### [facility] [address] [place], [address] Chloride [Moles/Vol] 94 mmol/L Low 98-108 [facility] Comment on above: Performed By: #### Dinesh ALBERT, BTS #### [facility] [address] [place], [address] CO2 [Moles/Vol] 25.2 mmol/L Normal 21.0-32.0 [facility] Comment on above: Performed By: #### Dinesh ALBERT, BTS #### [facility] [address] [place], [address] Creatinine [Mass/Vol] 1.09 mg/dL Normal 0.70-1.20 [facility] Comment on above: Performed By: #### Dinesh ALBERT, BTS #### [facility] [address] [place], [address] ECRCL 53.06 ml/min Normal 50-250 [facility] Comment on above: Performed By: #### Dinesh ALBERT, BTS #### [facility] [address] [place], [address] GAP 10 Normal 5-15 [facility] Comment on above: Performed By: #### Dinesh ALBERT, BTS #### [facility] [address] [place], [address] GFR/1.73 sq M.predicted among non-blacks MDRD (S/P/Bld) [Vol rate/Area] 70 mL/min/{1.73_m2} Normal >60 [facility] Comment on above: Result Comment: mL/m in/1.73m2 CKD-EPI Creatinine Equation (2020) Performed By: #### Dinesh ALBERT, BTS #### [facility] [address] [place], [address] Glucose [Mass/Vol] 309 mg/dL High 70-99 [facility] Comment on above: Performed By: #### Dinesh ALBERT, BTS #### [facility] [address] [place], [address] Potassium [Moles/Vol] 3.4 mmol/L Normal 3.3-5.1 [facility] Comment on above: Performed By: #### Dinesh ALBERT, BTS #### [facility] [address] [place], [address] Sodium [Moles/Vol] 129 mmol/L Low 133-145 [facility] Comment on above: Performed By: #### Dinesh ALBERT, BTS #### [facility] [address] [place], [address] Urea nitrogen [Mass/Vol] 16 mg/dL Normal 4-19 [facility] Comment on above: Performed By: #### Dinesh ALBERT, BTS #### [facility] [address] [place], [address] Basophil percentageOrdered B y: Afsaneh Olson on 03-24-2025 Basophils/100 WBC (Bld) 0.2 % 0-1 [facility] CBC W/Diff, Automatedon 02-28 Absolute Lymph 0.63 X10 3/uL Low 0.83-4.51 [facility] Comment on above: Performed By: #### Dinesh ALBERT, BTS #### [facility] [address] [place], [address] Absolute Neut 11.6 X10 3/uL High 2.0-7.7 [facility] Comment on above: Performed By: #### B BETY, BTS #### [facility] [address] [place], [address] Basophils/100 WBC (Bld) 0.2 % Normal 0-1 [facility] Comment on above: Performed By: #### B BETY, BTS #### [facility] [address] [place], [address] Eosinophils/100 WBC (Bld) 0.1 % Normal 0-5 [facility] Comment on above: Performed By: #### B BETY, BTS #### [facility] [address] [place], [address] Erythrocyte distribution width (RBC) [Ratio] 18.8 % High 11.6-14.6 [facility] Comment on above: Performed By: #### Dinesh ALBERT, BTS #### [facility] [address] [place], [address] Hematocrit (Bld) [Volume fraction] 21.5 % Low 40-54 [facility] Comment on above: Performed By: #### B BETY, BTS #### [facility] [address] [place], [address] Hemoglobin (Bld) [Mass/Vol] 6.5 g/dL Low 13.0-16.5 [facility] Comment on above: Performed By: #### B BETY, BTS #### [facility] [address] [place], [address] IG% 0.600 Normal 0.0-0.9 [facility] Comment on above: Result Comment: IG% - Immature Granulocytes (promyelocytes, myelocytes and metamyelocytes) > 1% indicates that a LEFT SHIFT is Present. Performed By: #### B BETY, BTS #### [facility] [address] [place], [address] Lymphocytes/100 WBC (Bld) 4.8 % Low 19-41 [facility] Comment on above: Performed By: #### Dinesh ALBERT, BTS #### [facility] [address] [place], [address] MCH (RBC) [Entitic mass] 25.8 pg Low 27.0-32.0 [facility] Comment on above: Performed By: #### Dinesh ALBERT, BTS #### [facility] [address] [place], [address] MCHC (RBC) [Mass/Vol] 30.2 g/dL Low 32-36 [facility] Comment on above: Performed By: #### Dinesh ALBERT, BTS #### [facility] [address] [place], [address] MCV (RBC) [Entitic vol] 85.3 fL Normal 80-94 [facility] Comment on above: Performed By: #### Dinesh ALBERT, BTS #### [facility] [address] [place], [address] Monocytes/100 WBC (Bld) 6.0 % Normal 0-10 [facility] Comment on above: Performed By: #### Dinesh ALBERT, BTS #### [facility] [address] [place], [address] Neutrophils/100 WBC (Bld) 88.3 % High 47-70 [facility] Comment on above: Performed By: #### Dinesh ALBERT, BTS #### [facility] [address] [place], [address] Nucleated RBC (Bld) [#/Vol] 0 10*3/uL Normal 0-5 [facility] Comment on above: Performed By: #### Dinesh ALBERT, BTS #### [facility] [address] [place], [address] Platelet mean volume (Bld) [Entitic vol] 9.3 fL Normal 6.2-12.0 [facility] Comment on above: Performed By: #### B BETY BTS #### [facility] [address] [place], [address] Platelets (Bld) [#/Vol] 253 10*3/uL Normal 150-450 [facility] Comment on above: Performed By: #### B BETY, BTS #### [facility] [address] [place] [place], [address] RBC (Bld) [#/Vol] 2.52 10*6/uL Low 4.6-6.2 [facility] Comment on above: Performed By: #### B BETY BTS #### [facility] [address] [place], [address] RDW SD 59.0 fl High 35.1-43.9 [facility] Comment on above: Performed By: #### B BETY BTS #### [facility] [address] [place], [address] WBC (Bld) [#/Vol] 13.1 10*3/uL High 4.4-11.0 [facility] Comment on above: Performed By: #### B BETY BTS #### [facility] [address] [place], [address] CNPNon 03-24-2025 CNPN Normal [facility] CTA Chest W/WO Contraston CTA Chest W/WO Contrast [facility] Imaging Services [address] [place] [address] CTA Chest W/WO Contrast MR#: [id number] Acct: [id number] Name: DIPTI SIERRA Rep #: [id number] : 1945 M 79 From: Brayan Martinez MD PCP: Dr. Chaitanya Puri MD Status: REG ER Study: CTA Chest W/WO Contrast Date of Exam: 03/24/25 Exam# [id number] Ordering Dr: Afsaneh Olson DO PROCEDURE: CTA CHEST W/WO CONTRAST 03/24/2025 REASON FOR EXAM: HYPOXIA, PLEURITIC CHEST PAIN , HX OF CANCER Pulmonary metastatic disease. TECHNIQUE: Procedure Code: CTCTACHWW Modality: CT Procedure: CTA CHEST W/WO CONTRAST Multiplanar Sagittal and Coronal images were obtained. 3D post processing was performed CONTRAST: Isovue 370 VOLUME: 100 mL One or more dose reduction techniques were used (e.g., Automated exposure control, adjustment of the mA and/or kV according to patient size, use of iterative reconstruction technique). RADIATION DOSE SUMMARY: CTDlvol: 17 mGy DLP: 450.3 MGycm COMPARISON: CT abdomen January 2024. # of known CTs in the past 12 months: 1 # of known Cardiac Nuclear Medicine Studies in the past 12 months: 0 FINDINGS: Thyroid gland: Negative. Lungs: Extensive bilateral pulmonary masses largest on the right is in the right middle lobe and measures 5.6 by 4.8 cm. Largest in the left is in the left lung base and measures at least 6 by 7 cm. This mass is increased in size and overall suspect metastatic disease has moderately worsened since January 2024. Additionally there is hyperdense material in the right lower lobe consider concerning for aspiration pneumonia with similar disease on the left. Therefore suspect patient has both worsening metastatic disease and developing bilateral aspiration pneumonia. Pleura: Negative for pleural effusion or pneumothorax. Airways: Imaged bronchi and trachea otherwisenegative. Mediastinum: Right azygous esophageal recess adenopathy measures 2.7 by 1.6 cm. Negative for mediastinal mass. Lymph nodes: Azygous esophageal recess adenopathy. Mild left hilar adenopathy. No axillary adenopathy. Heart and Vasculature: Pulmonary arteries well opacify with intravenous contrast. Negative for intraluminal thrombus. Heart normal size. Negative for vascular calcifications of the thoracic aorta. Coronary Artery Calcifications: Slight vascular calcifications of the coronary arteries Upper Abdomen: Probable hepatic metastatic disease with poorly defined lesion in the right lobe of liver measuring at least 5 cm. Hardware: None. Bones: No bony metastatic disease. Mild compression fractures lower thoracic spine, old. Age- appropriate degenerative changes of the thoracic spine. CT/CTA Chest W/WO Contrast IMPRESSION: Negative for pulmonary embolus. Extensive pulmonary metastatic disease mildly worse compared to January 2024. Suspect interval development of bilateral aspiration pneumonia. Hepatic metastatic disease. No definitive bony metastatic disease Reading Location: [facility] CC: Dr. Chaitanya Puri MD; Dr. Afsaneh Olson DO Zoning Assistant: Signed Normal [facility] Carbon dioxide, total [Moles /volume] in Central venous bloodOrdered By: Afsaneh Olson on 03-24-2025 CO2 [Moles/Vol] 25.2 mmol/L 21.0-32.0 [facility] Chest 1 View (Portable)on Chest 1 View (Portable) [facility] Imaging Services [address], [place] [address] Chest 1 View (Portable) MR#: [id number] Acct: [id number] Name: DIPTI SIERRA Rep #: [id number] : 1945 M 79 From: Brayan Martinez MD PCP: Dr. Chaitanya Puri MD Status: REG ER Study: Chest 1 View (Portable) Date of Exam: 03/24/25 Exam# [id number] Ordering Dr: Afsaneh Olson DO PROCEDURE: CHEST 1 VIEW (PORTABLE) 03/24/2025 REASON FOR EXAM: LEFT SIDED CHEEST PAIN TECHNIQUE: Frontal view of the chest. COMPARISON: December 2024. FINDINGS: Hardware and support lines: Left-sided Port-A-Cath. Heart: Negative. Lungs: Numerous bilateral pulmonary masses relatively stable. Pleura: No pleural thickening. Minimal left-sided pleural fluid. Mediastinum and aorta: Negative for hilar adenopathy. Mildly tortuous thoracic aorta. Bones: Mild degenerative changes of the shoulders. Age-appropriate degenerative changes of the spine. Other: Remainder of the exam negative. RAD/Chest 1 View (Portable) IMPRESSION: Extensive pulmonary metastatic disease Small left-sided pleural effusion. Reading Location: [id number] CC: Dr. Chaitanya Puri MD; Dr. Afsaneh Olson DO Zoning Assistant: Signed Normal [facility] Chloride assayOrdered By: Blu Olson on 09-26-2025 Chloride [Moles/Vol] 94 mmol/L Low 98-108 [facility] Electrocardiogram reportOrde red By: Driss Martinez on 03-24-2025 EKG study [facility] Cardiovascular Services [address] [place] [address] 12 Lead EKG 03/24/25 1011 MR#: [id number] Acct: [id number] Name: DIPTI SIERRA Rep #:[id number] : 1945 79 From: Driss Martinez MD Attending Dr: Status: DEP E R Ordering Dr: Afsaneh Olson DO Date: 0 03/24/25 Location: ED Sex: M C Admitted: Test Reason : GENERAL Blood Pressure : */* mmHG Vent. Rate : 83 BPM Atrial Rate : 83 BPM P-R Int : 130 ms QRS Dur : 84 ms QT Int : 404 ms P-R-T Axes : 43 28 30 degrees QTcB Int : 474 ms Normal sinus rhythm Normal ECG Confirmed by DRISS MARTINEZ ([id number]), industrial editor JIM IBARRA ([id number]) on 03/27/2025 9:07:02 AM Referred By: Confirmed By: DRISS MARTINEZ 03/27/25 09 Date _ Driss Martinez MD CC: Dr. Chaitanya Puri MD; Dr. Afsaneh Olson DO ~ Signed [facility] Other Phone: Emergency Department Summary on 03-24-[address] [facility] Medical Records Department [address] [place] [address] Emergency Department Summary 03/24/25 MR#: [id number] Acct: [id number] Name: DIPTI SIERRA Rep #: [id number] : 1945 79 From: Afsaneh Olson DO PCP: Dr. 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 He follows with Dr. Bar. He is presenting today with worsening left sided pleuritic chest pain. States it started rather suddenly around 7 PM last night. He states he feels generally weak and short of breath with it. On arrival to the ER patient was 86% on room air and does not wear oxygen normally. He has been having chills for the past few nights and for the past few weeks has been having some worsening cough. Son states has been worse over the past few days. No fevers reported. Tried to take pain medication (phospho-inge) last night with no relief. Denies any medications today. Denies associate nausea or vomiting, cardiac history, history of DVT or PE or leg swelling. Is not on any oral anticoagulation. States he does have some mild pain in his left upper quadrant but states it is more underneath his ribs. Denies any acute change in his bowel movements . No other complaints or concerns reported acutely at this time. States he does have [facility] Medical History Colon cancer metastasized to multiple sites Anemia Pneumonia Sleep apnea Colon cancer GERD (gastroesophageal reflux disease) High cholesterol HTN (hypertension) Home Medications ???Medication ???Instructions ???Recorded ???Last Taken ???Type aspirin 81 mg tablet,delayed 81 mg PO DAILY 01/07/22 01/08/25 H istory release glimepiride 4 mg tablet 4 mg PO DAILY 01/07/22 01/09/25 Hi story omeprazole 40 mg capsule,delayed 40 mg PO DAILY 01/07/22 01/08/25 H istory release pioglitazone 30 mg tablet 30 mg PO DAILY 01/07/22 01/08/25 H istory rosuvastatin 10 mg tablet 10 mg PO DAILY 01/07/22 01/09/25 H istory mometasone 50 mcg/actuation nasal 2 spray intranasal DAILY 02/01/24 01/08/25 History spray ondansetron HCl 8 mg tablet 8 mg PO Q8H PRN nausea and vomitin g 02/01/24 Unknown History prochlorperazine maleate 10 mg 10 mg PO Q6H PRN nausea and Unknown History tablet vomiting zolpidem 10 mg tablet 10 mg PO QHS PRN PRN sleep 4 Unknown History insulin glargine 100 unit/mL (3 20 unit subcut DAILY 11/24/24 Unkn own History mL) subcutaneous pen (Lantus Solostar U-100 Insulin) acyclovir 400 mg tablet 400 mg PO BID 01/09/25 01/09/25 Hi story amoxicillin 875 mg-potassium 1 tab PO BID 01/09/25 Unknown Hist ory clavulanate 125 mg tablet azithromycin 250 mg tablet 250 mg PO UD 01/09/25 Unknown Hist ory hydrochlorothiazide 12.5 mg tablet 12.5 mg PO DAILY 01/09/25 History magnesium chloride 71.5 mg 71.5 mg PO BID 01/09/25 01/09/25 H istory (magnesium chloride) tablet,delayed release (Slow-Mag) mirtazapine 15 mg tablet 15 mg PO QHS 01/09/25 Unknown Hist ory potassium chloride 10 mEq 10 meq PO BID 01/09/25 01/09/25 Hi story tablet,extended release amoxicillin 875 mg-potassium 1 tab PO Q12H #20 tabs 03/24/25 Un known Rx clavulanate 125 mg tablet hydrocodone-acetaminophen 5-325mg 1 tab PO Q6H PRN PRN Pain 5 days 03/24/25 Unknown Rx 5mg-325mg #20 TABLETS Allergy/AdvReac Type Severity Reaction Status Date / Time lisinopril Allergy Severe Angioedema Verified 03/24/25 08:54 metformin Allergy Upset Verified 03/24/25 08:54 Stomach Surgical History History of ankle surgery History of knee replacement History of appendectomy History of colon resection Social History housing: house Smoking Status: Former smoker ROS ROS ED Constitutional Constitutional ED: Reports chills; Denies fever(s) ENT ENT ED: Denies rhinorrhea or sore throat Cardiovascular Cardiovascular: Reports chest pain; Denies palpitations Respiratory/Chest Respiratory/Chest: Reports cough, dyspnea, dyspnea on exertion and sputum Gastrointestinal Gastrointestinal: Denies abdominal pain, diarrhea, nausea or vomiting Musculoskeletal Musculoskeletal: Denies arthralgias or myalgias Integumentary Denies rash Neurologic Neurologic: Reports weakness; Denies headache(s) or paresthesias Hematologic/Lymphatic Hematologic/Lymphatic: Denies easy bleeding or easy bruising (more content not included)... Normal [facility] Eosinophil percentageOrdered By: Afsaneh Olson on 03-24-2025 Eosinophils/100 WBC (Bld) 0.1 % 0-5 [facility] Erythrocyte distribution wid th ratioOrdered By: Afsaneh Olson on 03-24-2025 Erythrocyte distribution width (RBC) [Ratio] 18.8 % High 11.6-14.6 [facility] Erythrocyte distribution wid th standard deviationOrdered By: Afsaneh Olson on 03-24-2025 Erythrocyte distribution width (RBC) [Ratio] 59.0 fl High 35.1-43.9 [facility] Glomerular filtration rate ( GFR) estimation/1.73 sq m using serum, plasma, or whole bOrdered By: Afsaneh Olson on 03-24-2025 GFR/1.73 sq M.predicted among non-blacks MDRD (S/P/Bld) [Vol rate/Area] 70 mL/min/{1.73_m2} >60 [facility] Comment on above: mL/min/1.73m2 CKD-EP I Creatinine Equation (2020) Hematocrit Auto (Bld) [Volum e fraction]Ordered By: Afsaneh Olson on 03-24-2025 Hematocrit (Bld) [Volume fraction] 21.5 % Low 40-54 [facility] Hemoglobin measurementOrdere d By: Afsaneh Olson on 03-24-2025 Hemoglobin (Bld) [Mass/Vol] 6.5 g/dL Low 13.0-16.5 [facility] Immature granulocytes/100 WB C Auto (Bld)Ordered By: Afsaneh Olson on 03-24-2025 Immature granulocytes/100 WBC (Bld) 0.600 % 0.0-0.9 [facility] Comment on above: IG% - Immature Granu locytes (promyelocytes, myelocytes and metamyelocytes) > 1% indicates that a LEFT SHIFT is Present. L501.4021on 03-24-2025 Trop T High Sen 27 ng/L High <=22 [facility] Comment on above: Performed By: #### B , BTS #### [facility] [address] [place], [place], [id number] MCV (mean corpuscular volume ) determinationOrdered By: Afsaneh Olson on 03-24-2025 MCV (RBC) [Entitic vol] 85.3 fL 80-94 [facility] Mean corpuscular hemoglobin (MCH) determinationOrdered By: Afsaneh Olson on 03-24-2025 MCH (RBC) [Entitic mass] 25.8 pg Low 27.0-32.0 [facility] Mean corpuscular hemoglobin concentration (MCHC) determinationOrdered By: Afsaneh Olson on 03-24-2025 MCHC (RBC) [Mass/Vol] 30.2 g/dL Low 32-36 [facility] Mean platelet volume determi nationOrdered By: Afsaneh Olson on 03-24-2025 Platelet mean volume (Bld) [Entitic vol] 9.3 fL 6.2-12.0 [facility] Monocyte percentageOrdered B y: Afsaneh Olson on 03-24-2025 Monocytes/100 WBC (Bld) 6.0 % 0-10 [facility] Natriuretic peptide.B prohor loc N-Terminal [Mass/volume] in Serum or PlasmaOrdered By: Afsaneh Olson on 03-24-2025 Natriuretic peptide.B prohormone N-Terminal [Mass/Vol] 1573 pg/mL <1800 [facility] Comment on above: Heart Failure Unlike ly: < 300 pg/mLHeart Failure Likely< 50 Years: > 450 pg/mL50-75 Years: > 900 pg/mL>75 Years: > 1800 pg/mL Neutrophil percentageOrdered By: Afsaneh Olson on 03-24-2025 Neutrophils/100 WBC (Bld) 88.3 % High 47-70 [facility] Nucleated red blood cell per centageOrdered By: Afsaneh Olson on 03-24-2025 Nucleated RBC/100 WBC (Bld) [Ratio] 0 % 0-5 [facility] Platelet countOrdered By: Blu Olson on 03-24-2025 Platelets (Bld) [#/Vol] 253 10*3/uL 150-450 [facility] Potassium measurement (mass/ volume)Ordered By: Afsaneh Olson on 03-24-2025 Potassium (Unsp spec) [Mass/Vol] 3.4 mmol/L 3.3-5.1 [facility] Pro- Brain NATRIURETIC PEPTI Andrea 03-24-2025 Natriuretic peptide B (Bld) [Mass/Vol] 1573 pg/mL Normal <=1800 [facility] Comment on above: Result Comment: Hear t Failure Unlikely: < 300 pg/mL Heart Failure Likely < 50 Years: > 450 pg/mL 50-75 Years: > 900 pg/mL >75 Years: > 1800 pg/mL Performed By: #### B BETY, BTS #### [facility] [address] [place], [address] RBC Auto (Bld) [#/Vol]Ordere d By: Afsaneh Olson on 03-24-2025 RBC (Bld) [#/Vol] 2.52 10*6/uL Low 4.6-6.2 [facility] Serum creatinine measurement (mass/volume)Ordered By: Afsaneh Olson on 03-24-2025 Creatinine [Mass/Vol] 1.09 mg/dL 0.70-1.20 [facility] Serum glucose measurement (m ass/volume)Ordered By: Afsaneh Olson on 03-24-2025 Glucose [Mass/Vol] 309 mg/dL High 70-99 [facility] Serum or plasma calcium miley urement (mass/volume)Ordered By: Afsaneh Olson on 03-24-2025 Calcium [Mass/Vol] 8.1 mg/dL 7.6-11.0 [facility] Serum or plasma urea nitroge n measurement (mass/volume)Ordered By: Afsaneh Olson on 03-24-2025 Urea nitrogen [Mass/Vol] 16 mg/dL 4-19 [facility] Sodium levelOrdered By: Lyle Olson on 03-24-2025 Sodium [Moles/Vol] 129 mmol/L Low 133-145 [facility] Troponin T HS 2 HRon 025 Trop T High Sen 26 ng/L High <=22 [facility] Comment on above: Performed By: #### L 499.0042 #### [facility] [address] [place], [place], [id number] Troponin T HS 4 HRon 025 Trop T High Sen Normal <=22 [facility] Comment on above: Result Comment: CAMELIA ENT DISCHARGED Performed By: #### L 499.0043 #### [facility] [address] [place], [place], [id number] Troponin T.cardiac [Mass/vol ume] in Serum or Plasma by High sensitivity methodOrdered By: Afsaneh Olson on 03-24-2025 Troponin T.cardiac High sensitivity method [Mass/Vol] 26 ng/L High <22 [facility] Troponin T.cardiac High sensitivity method [Mass/Vol] 27 ng/L High <22 [facility] Type AND Screenon 03-24-2025 ABO and Rh group Nom (Bld) Blood group O Rh(D) positive Normal [facility] Comment on above: Order Comment: CMV N EG? NNumber of units to transfuse: 1Is pt's Hgb is = to 7.0 mg/dl or Hct </= 21%? YReason for Ordering Blood: ChronicAre the blood/blood products to be transfused? YIs the patient having/had surgery? NHas pt arrived? YBlanca Chu Performed By: #### L 501.080 #### [facility] [address] [facility]. [place], [place], [id number] White blood cell (WBC) count Ordered By: Afsaneh Olson on 03-24-2025 WBC (Bld) [#/Vol] 13.1 10*3/uL High 4.4-11.0 [facility] CNPNon 03-17-2025 CNPN Normal [facility] CBC W Auto Differential pane l (Bld)on 02-14-2025 Basophils (Bld) [#/Vol] 0.05 10*3/uL NINF [facility] Basophils/100 WBC (Bld) 0.8 % [facility] Differential cell count method Nom (Bld) Auto [facility] Eosinophils (Bld) [#/Vol] 0.29 10*3/uL [facility]F [facility] Eosinophils/100 WBC (Bld) 4.8 % [facility] Erythrocyte distribution width (RBC) [Ratio] 20.2 % High 11.5 - 15.0 % [facility] Hematocrit (Bld) [Volume fraction] 25.2 % Low 39.0 - 51.0 % [facility] Hemoglobin (Bld) [Mass/Vol] 7.6 g/dL Low 13.0 - 17.0 g/dL [facility] Immature granulocytes (Bld) [#/Vol] 0.05 10*3/uL [facility]F [facility] Immature granulocytes/100 WBC (Bld) 0.8 % [facility] Interpretation and review of laboratory results Abnormal [facility] Lymphocytes (Bld) [#/Vol] 0.79 10*3/uL Low [facility] Lymphocytes/100 WBC (Bld) 13.0 % [facility] MCH (RBC) [Entitic mass] 27.6 pg 26.0 - 34.0 pg [facility] MCHC (RBC) [Mass/Vol] 30.2 g/dL Low 30.5 - 36.0 g/dL [facility] MCV (RBC) [Entitic vol] 91.6 fL 80.0 - 100.0 fL [facility] Monocytes (Bld) [#/Vol] 0.47 10*3/uL [facility] Monocytes/100 WBC (Bld) 7.8 % [facility] Neutrophils (Bld) [#/Vol] 4.41 10*3/uL [facility] Neutrophils/100 WBC (Bld) 72.8 % [facility] Nucleated RBC (Bld) [#/Vol] [facility]F [facility] Nucleated RBC/100 WBC (Bld) [Ratio] 0.0 % /100 WBC [facility] Platelet mean volume (Bld) [Entitic vol] 9.1 fL 9.0 - 12.7 fL [facility] Platelets (Bld) [#/Vol] 243 10*3/uL [facility] RBC (Bld) [#/Vol] 2.75 10*6/uL Low 4.20 - 6.0 0 m/uL [facility] WBC (Bld) [#/Vol] 6.06 10*3/uL [facility] Basophils (Bld) [#/Vol] 0.05 10*3/uL Normal <0.11 [facility] Comment on above: Order Comment: Speci men Type: BLOOD SPECIMENOrdering Facility: [facility] Address: [address] [place] [address] Performed By: #### 5 7021-8 ####[facility] MILLWNCLIA [id number] [place] [address] [place] Basophils/100 WBC (Bld) 0.8 % Normal [facility] Comment on above: Order Comment: Speci men Type: BLOOD SPECIMENOrdering Facility: [facility] Address: [address] [place] [address] Performed By: #### 5 7021-8 ####[facility] [id number] [place] [address] [place] Differential cell count method Nom (Bld) Auto Normal [facility] Comment on above: Order Comment: Speci men Type: BLOOD SPECIMENOrdering Facility: [facility] Address: [address] [place] [address] Performed By: #### 5 7021-8 ####[facility] [id number] [place] [address] [place] Eosinophils (Bld) [#/Vol] 0.29 10*3/uL Normal <0.46 [facility] Comment on above: Order Comment: Speci men Type: BLOOD SPECIMENOrdering Facility: [facility] Address: [address] [place] [address] Performed By: #### 5 7021-8 ####[facility]PITALLIA [id number] [place] [address] [place] Eosinophils/100 WBC (Bld) 4.8 % Normal [facility] Comment on above: Order Comment: Speci men Type: BLOOD SPECIMENOrdering Facility: [facility] Address: [address] [place] [address] Performed By: #### 5 7021-8 ####[facility] ANGEL [id number] [place] [address] [place] Erythrocyte distribution width (RBC) [Ratio] 20.2 % High 11.5-15.0 [facility] Comment on above: Order Comment: Speci men Type: BLOOD SPECIMENOrdering Facility: [facility] Address: [address] [place] [address] Performed By: #### 5 7021-8 ####[facility] [id number] [place] [address] [place] Hematocrit (Bld) [Volume fraction] 25.2 % Low 39.0-51.0 [facility] Comment on above: Order Comment: Speci men Type: BLOOD SPECIMENOrdering Facility: [facility] Address: [address] [place] [address] Performed By: #### 5 7021-8 ####[facility]ITALBECKYA [id number] [place] [address] [place] Hemoglobin (Bld) [Mass/Vol] 7.6 g/dL Low 13.0-17.0 [facility] Comment on above: Order Comment: Speci men Type: BLOOD SPECIMENOrdering Facility: [facility] Address: [address] [place] [address] Performed By: #### 5 7021-8 ####[facility] [id number] [place] [address] [place] Immature granulocytes (Bld) [#/Vol] 0.05 10*3/uL Normal <0.10 [facility] Comment on above: Order Comment: Speci men Type: BLOOD SPECIMENOrdering Facility: [facility] Address: [address] [place] [address] Performed By: #### 5 7021-8 ####[facility]ITALBECKYA [id number] [place] [address] [place] Immature granulocytes/100 WBC (Bld) 0.8 % Normal [facility] Comment on above: Order Comment: Speci men Type: BLOOD SPECIMENOrdering Facility: [facility] Address: [address] [place] [address] Performed By: #### 5 7021-8 ####[facility] [id number] [place] [address] [place] Lymphocytes (Bld) [#/Vol] 0.79 10*3/uL Low 1.00-4.00 [facility] Comment on above: Order Comment: Speci men Type: BLOOD SPECIMENOrdering Facility: [facility] Address: [address] [place] [address] Performed By: #### 5 7021-8 ####[facility] [id number] [place] [address] [place] Lymphocytes/100 WBC (Bld) 13.0 % Normal [facility] Comment on above: Order Comment: Speci men Type: BLOOD SPECIMENOrdering Facility: [facility] Address: [address] [place] [address] Performed By: #### 5 7021-8 ####[facility] [id number] [place] [address] [place] MCH (RBC) [Entitic mass] 27.6 pg Normal 26.0-34.0 [facility] Comment on above: Order Comment: Speci men Type: BLOOD SPECIMENOrdering Facility: [facility] Address: [address] [place] [address] Performed By: #### 5 7021-8 ####[facility] [id number] [place] [address] [place] MCHC (RBC) [Mass/Vol] 30.2 g/dL Low 30.5-36.0 [facility] Comment on above: Order Comment: Speci men Type: BLOOD SPECIMENOrdering Facility: [facility] Address: [address] [place] [address] Performed By: #### 5 7021-8 ####[facility] [id number] [place] [address] [place] MCV (RBC) [Entitic vol] 91.6 fL Normal 80.0-100.0 [facility] Comment on above: Order Comment: Speci men Type: BLOOD SPECIMENOrdering Facility: [facility] Address: [address] [place] [address] Performed By: #### 5 7021-8 ####[facility] [id number] [place] [address] [place] Monocytes (Bld) [#/Vol] 0.47 10*3/uL Normal <0.87 [facility] Comment on above: Order Comment: Speci men Type: BLOOD SPECIMENOrdering Facility: [facility] Address: [address] [place] [address] Performed By: #### 5 7021-8 ####[facility] [id number] [place] [address] [place] Monocytes/100 WBC (Bld) 7.8 % Normal [facility] Comment on above: Order Comment: Speci men Type: BLOOD SPECIMENOrdering Facility: [facility] Address: [address] [place] [address] Performed By: #### 5 7021-8 ####[facility] [id number] [place] [address] [place] Neutrophils (Bld) [#/Vol] 4.41 10*3/uL Normal 1.45-7.50 [facility] Comment on above: Order Comment: Speci men Type: BLOOD SPECIMENOrdering Facility: [facility] Address: [address] [place] [address] Performed By: #### 5 7021-8 ####[facility] TEDDYMARIOLAA [id number] [place] [address] [place] Neutrophils/100 WBC (Bld) 72.8 % Normal [facility] Comment on above: Order Comment: Speci men Type: BLOOD SPECIMENOrdering Facility: [facility] Address: [address] [place] [address] Performed By: #### 5 7021-8 ####[facility]NAA [id number] [place] [address] [place] Nucleated RBC (Bld) [#/Vol] 10*3/uL Normal <0.01 [facility] Comment on above: Order Comment: Speci men Type: BLOOD SPECIMENOrdering Facility: [facility] Address: [address] [place] [address] Performed By: #### 5 7021-8 ####[facility]BECKYA [id number] [place] [address] [place] Nucleated RBC/100 WBC (Bld) [Ratio] 0.0 /100 WBC Normal [facility] Comment on above: Order Comment: Speci men Type: BLOOD SPECIMENOrdering Facility: [facility] Address: [address] [place] [address] Performed By: #### 5 7021-8 ####[facility] TEDDYBULLHEADGIANNALIA [id number] [place] [address] [place] Platelet mean volume (Bld) [Entitic vol] 9.1 fL Normal 9.0-12.7 [facility] Comment on above: Order Comment: Speci men Type: BLOOD SPECIMENOrdering Facility: [facility] Address: [address] [place] [address] Performed By: #### 5 7021-8 ####[facility]CL[facility] [id number] [place] [address] [place] Platelets (Bld) [#/Vol] 243 10*3/uL Normal 150-400 [facility] Comment on above: Order Comment: Speci men Type: BLOOD SPECIMENOrdering Facility: [facility] Address: [address] [place] [address] Performed By: #### 5 7021-8 ####[facility]CL[facility] [id number] [place] [address] [place] RBC (Bld) [#/Vol] 2.75 10*6/uL Low 4.20-6.00 [facility] Comment on above: Order Comment: Speci men Type: BLOOD SPECIMENOrdering Facility: [facility] Address: [address] [place] [address] Performed By: #### 5 7021-8 ####[facility] [id number] [place] [address] [place] WBC (Bld) [#/Vol] 6.06 10*3/uL Normal 3.70-11.00 [facility] Comment on above: Order Comment: Speci men Type: BLOOD SPECIMENOrdering Facility: [facility] Address: [address] [place] [address] Performed By: #### 5 7021-8 ####[facility] [id number] [place] [address] [place] CEA SerPl-mCncon 02-14-2025 Carcinoembryonic Ag [Mass/Vol] 420.9 ng/mL High <=2.9 [facility] Comment on above: Order Comment: Speci men Type: BLOOD SPECIMENOrdering Facility: [facility] Address: [address] [place] [address] Result Comment: Carc inoembryonic antigen test is [...] used interchangeably. Performed By: #### 2 039-6 ####[facility] LABCLIA [id number] [address] [place] CNOVSPon 02-14-2025 CNOVSP Normal [facility] CNPNon 02-14-2025 CNPN Normal [facility] Comprehensive metabolic 2000 panelOrdered By: Mady Cabello on 02-14-2025 Albumin [Mass/Vol] 3.5 g/dL Low 3.9 - 4.9 g/dL [facility] ALP [Catalytic activity/Vol] 120 U/L High 38 - 113 U/L [facility] ALT [Catalytic activity/Vol] 8 U/L Low 10 - 54 U/L [facility] Anion gap [Moles/Vol] 12 mmol/L 8 - 15 mmol/L [facility] AST [Catalytic activity/Vol] 19 U/L 14 - 40 U/L [facility] Bilirubin [Mass/Vol] 0.7 mg/dL 0.2 - 1 .3 mg/dL [facility] Calcium [Mass/Vol] 9.6 mg/dL 8.5 - 10. 2 mg/dL [facility] Chloride [Moles/Vol] 97 mmol/L Low 98 - 10 7 mmol/L [facility] CO2 [Moles/Vol] 25 mmol/L 22 - 30 mmol/L [facility] Creatinine [Mass/Vol] 0.79 mg/dL 0.73 - 1.22 mg/dL [facility] GFR/1.73 sq M.predicted among non-blacks MDRD (S/P/Bld) [Vol rate/Area] 91 mL/min/{1.73_m2} - PINF [facility] Comment on above: Estimated Glomerular Filtration Rate [...] not accurately reflect actual GFR. Glucose [Mass/Vol] 276 mg/dL High 74 - 99 mg/dL [facility] Comment on above: The [place] Di[employer] Association (ADA) provides guidance for [...] Standards of Medical Care in Diabetes 2016, [place] [employer]. Diabetes Care. 2016.39(Suppl 1). Interpretation and review of laboratory results Abnormal [facility] Potassium [Moles/Vol] 3.6 mmol/L Low 3.7 - 5.1 mmol/L [facility] Protein [Mass/Vol] 8.2 g/dL High 6.3 - 8.0 g/dL [facility] Sodium [Moles/Vol] 134 mmol/L Low 136 - 144 mmol/L [facility] Urea nitrogen [Mass/Vol] 15 mg/dL 9 - 24 mg/dL [facility] Comprehensive metabolic 2000 panelon 02-14-2025 Albumin [Mass/Vol] 3.5 g/dL Low 3.9-4.9 [facility] Comment on above: Order Comment: Speci men Type: BLOOD SPECIMENOrdering Facility: [facility] Address: [address] [place] [address] Performed By: #### 2 4323-8, ####[facility] [id number] [place] [address] [place] ALP [Catalytic activity/Vol] 120 U/L High 38-113 [facility] Comment on above: Order Comment: Speci men Type: BLOOD SPECIMENOrdering Facility: [facility] Address: [address] [place] [address] Performed By: #### 2 4323-8, ####[facility] MILLTOWNCLIA [id number] [place] [address] [place] ALT [Catalytic activity/Vol] 8 U/L Low 10-54 [facility] Comment on above: Order Comment: Speci men Type: BLOOD SPECIMENOrdering Facility: [facility] Address: [address] [place] [address] Performed By: #### 2 4323-8, ####[facility] MILLTOWNCLIA [id number] [place] [address] [place] Anion gap [Moles/Vol] 12 mmol/L Normal 8-15 [facility] Comment on above: Order Comment: Speci men Type: BLOOD SPECIMENOrdering Facility: [facility] Address: [address] [place] [address] Performed By: #### 2 4328, ####[facility] [id number] [place] [address] [place] AST [Catalytic activity/Vol] 19 U/L Normal 14-40 [facility] Comment on above: Order Comment: Speci men Type: BLOOD SPECIMENOrdering Facility: [facility] Address: [address] [place] [address] Performed By: #### 2 4323-8, ####[facility] MILLWNCLIA [id number] [place] [address] [place] Bilirubin [Mass/Vol] 0.7 mg/dL Normal 0.2-1.3 [facility] Comment on above: Order Comment: Speci men Type: BLOOD SPECIMENOrdering Facility: [facility] Address: [address] [place] [address] Performed By: #### 2 4323-8, ####[facility]CL[facility] [id number] [place] [address] [place] Calcium [Mass/Vol] 9.6 mg/dL Normal 8.5-10.2 [facility] Comment on above: Order Comment: Speci men Type: BLOOD SPECIMENOrdering Facility: [facility] Address: [address] [place] [address] Performed By: #### 2 4323-8, 85457-6 ####[facility] MILLTOWGIANNALIA [id number] [place] [address] [place] Chloride [Moles/Vol] 97 mmol/L Low 98-107 [facility] Comment on above: Order Comment: Speci men Type: BLOOD SPECIMENOrdering Facility: [facility] Address: [address] [place] [address] Performed By: #### 2 4323-8, 97107-6 ####[facility] MILLWGIANNALIA [id number] [place] [address] [place] CO2 [Moles/Vol] 25 mmol/L Normal 22-30 [facility] Comment on above: Order Comment: Speci men Type: BLOOD SPECIMENOrdering Facility: [facility] Address: [address] [place] [address] Performed By: #### 2 4323-8, ####[facility] MILLTOWNCLIA [id number] [place] [address] [place] Creatinine [Mass/Vol] 0.79 mg/dL Normal 0.73-1.22 [facility] Comment on above: Order Comment: Speci men Type: BLOOD SPECIMENOrdering Facility: [facility] Address: [address] [place] [address] Performed By: #### 2 4323-8, 81945-0 ####[facility] MILLTOWNCLIA [id number] [place] [address] [place] eGFRcr SerPlBld CKD-EPI 2020 91 mL/min/1.73m??? Normal >=60 [facility] Comment on above: Order Comment: Willam robles Type: BLOOD SPECIMENOrdering Facility: [facility] Address: [address] [place] [address] Result Comment: Rod mated Glomerular Filtration Rate [...] actual GFR. Performed By: #### 2 4323-8, 05412-2 ####[facility] [id number] [place] [address] [place] Glucose [Mass/Vol] 276 mg/dL High 74-99 [facility] Comment on above: Order Comment: Willam robles Type: BLOOD SPECIMENOrdering Facility: [facility] Address: [address] [place] [address] Result Comment: The [place] Diabetes Association (ADA) provides guidance for cutoff [...] Standards of Medical Care in Diabetes 2016, [place] [employer]. Diabetes Care. 2016.39(Suppl 1). Performed By: #### 2 4323-8, 23882-3 ####[facility] [id number] [place] [address] [place] Potassium [Moles/Vol] 3.6 mmol/L Low 3.7-5.1 [facility] Comment on above: Order Comment: Speci men Type: BLOOD SPECIMENOrdering Facility: [facility] Address: [address] [place] [address] Performed By: #### 2 4323-8, ####[facility] TEDDYRYAN [id number] [place] [address] [place] Protein [Mass/Vol] 8.2 g/dL High 6.3-8.0 [facility] Comment on above: Order Comment: Speci men Type: BLOOD SPECIMENOrdering Facility: [facility] Address: [address] [place] [address] Performed By: #### 2 4323-8, ####[facility] ORTIZ [id number] [place] [address] [place] Sodium [Moles/Vol] 134 mmol/L Low 136-144 [facility] Comment on above: Order Comment: Speci men Type: BLOOD SPECIMENOrdering Facility: [facility] Address: [address] [place] [address] Performed By: #### 2 4323-8, ####[facility] ORTIZ [id number] [place] [address] [place] Urea nitrogen [Mass/Vol] 15 mg/dL Normal 9-24 [facility] Comment on above: Order Comment: Speci men Type: BLOOD SPECIMENOrdering Facility: [facility] Address: [address] [place] [address] Performed By: #### 2 4323-8, ####[facility] GODINEZA [id number] [place] [address] [place] MAGNESIUMon 02-14-2025 Magnesium [Mass/Vol] 1.8 mg/dL 1.7 - 2 .3 mg/dL [facility] Magnesium SerPl-mCncon 02-14 Magnesium [Mass/Vol] 1.8 mg/dL Normal 1.7-2.3 [facility] Comment on above: Order Comment: Speci men Type: BLOOD SPECIMENOrdering Facility: [facility] Address: [place] [address] Performed By: #### 2 4323-8, 12182-0 ####[facility]ENTERMckenna [id number] [place] [address] [place] Magnesium [Mass/Vol]on 02-14 Interpretation and review of laboratory results Normal [facility] UA DIP, URINE (POC)on 2024 BILIRUBIN UA (POCT) Negative Negative [facility] CLARITY UA (POCT) Clear [facility] COLOR UA (POCT) Yellow [facility] GLUCOSE UA (POCT) Negative Negative mg/dL [facility] Hemoglobin Ql (U) Negative Negative [facility] Interpretation and review of laboratory results Abnormal [facility] KETONE UA (POCT) Negative Negative mg/dL [facility] LEUKOCYTES UA (POCT) Negative Negative [facility] NITRITE UA (POCT) Negative Negative [facility] PH UA (POCT) 6.0 4.5 - 8.0 [facility] Protein Ql (U) Trace Abnormal Negative mg/dL [facility] SPECIFIC GRAVITY UA (POCT) 1.020 1.005 - 1.030 [facility] UROBILINOGEN UA (POCT) 0.2 Normal E.U./dL [facility] Location:[facility], [address], [place], [place], [address] [place] [address] POINT OF CARE [facility] CT ABD/PEL W IVCONon 025 CT ABD/PEL W IVCON Normal [facility] CT CHEST W IVCONon 5 CT CHEST W IVCON Normal [facility] CNPNon 02-06-2025 CNPN Normal [facility] CNPNon 01-19-2025 CNPN Normal [facility] CBC W Auto Differential pane l (Bld)on 01-17-2025 Basophils (Bld) [#/Vol] 0.07 10*3/uL NINF [facility] Basophils/100 WBC (Bld) 0.7 % [facility] Differential cell count method Nom (Bld) Auto [facility] Eosinophils (Bld) [#/Vol] 0.4 10*3/uL [facility]F [facility] Eosinophils/100 WBC (Bld) 4.2 % [facility] Erythrocyte distribution width (RBC) [Ratio] 21.1 % High 11.5 - 15.0 % [facility] Hematocrit (Bld) [Volume fraction] 24.5 % Low 39.0 - 51.0 % [facility] Hemoglobin (Bld) [Mass/Vol] 7.2 g/dL Low 13.0 - 17.0 g/dL [facility] Immature granulocytes (Bld) [#/Vol] 0.08 10*3/uL [facility]F [facility] Immature granulocytes/100 WBC (Bld) 0.8 % [facility] Interpretation and review of laboratory results Abnormal [facility] Lymphocytes (Bld) [#/Vol] 0.72 10*3/uL Low [facility] Lymphocytes/100 WBC (Bld) 7.6 % [facility] MCH (RBC) [Entitic mass] 27.2 pg 26.0 - 34.0 pg [facility] MCHC (RBC) [Mass/Vol] 29.4 g/dL Low 30.5 - 36.0 g/dL [facility] MCV (RBC) [Entitic vol] 92.5 fL 80.0 - 100.0 fL [facility] Monocytes (Bld) [#/Vol] 0.41 10*3/uL [facility] Monocytes/100 WBC (Bld) 4.3 % [facility] Neutrophils (Bld) [#/Vol] 7.77 10*3/uL High [facility] Neutrophils/100 WBC (Bld) 82.4 % [facility] Nucleated RBC (Bld) [#/Vol] [facility]F [facility] Nucleated RBC/100 WBC (Bld) [Ratio] 0 % /100 WBC [facility] Platelet mean volume (Bld) [Entitic vol] 9.2 fL 9.0 - 12.7 fL [facility] Platelets (Bld) [#/Vol] 256 10*3/uL [facility] RBC (Bld) [#/Vol] 2.65 10*6/uL Low 4.20 - 6.0 0 m/uL [facility] WBC (Bld) [#/Vol] 9.45 10*3/uL [facility] Basophils (Bld) [#/Vol] 0.07 10*3/uL Normal <0.11 [facility] Comment on above: Order Comment: Speci men Type: BLOOD SPECIMENOrdering Facility: [facility] Address: [address] [place] [address] Performed By: #### 5 7021-8 ####[facility] MILLWVTLIA [id number] [place] [address] [place] Basophils/100 WBC (Bld) 0.7 % Normal [facility] Comment on above: Order Comment: Speci men Type: BLOOD SPECIMENOrdering Facility: [facility] Address: [address] [place] [address] Performed By: #### 5 7021-8 ####[facility] [id number] [place] [address] [place] Differential cell count method Nom (Bld) Auto Normal [facility] Comment on above: Order Comment: Speci men Type: BLOOD SPECIMENOrdering Facility: [facility] Address: [address] [place] [address] Performed By: #### 5 7021-8 ####[facility]IA [id number] [place] [address] [place] Eosinophils (Bld) [#/Vol] 0.40 10*3/uL Normal <0.46 [facility] Comment on above: Order Comment: Speci men Type: BLOOD SPECIMENOrdering Facility: [facility] Address: [address] [place] [address] Performed By: #### 5 7021-8 ####[facility] [id number] [place] [address] [place] Eosinophils/100 WBC (Bld) 4.2 % Normal [facility] Comment on above: Order Comment: Speci men Type: BLOOD SPECIMENOrdering Facility: [facility] Address: [address] [place] [address] Performed By: #### 5 7021-8 ####[facility] TEDDYGANESH [id number] [place] [address] [place] Erythrocyte distribution width (RBC) [Ratio] 21.1 % High 11.5-15.0 [facility] Comment on above: Order Comment: Speci men Type: BLOOD SPECIMENOrdering Facility: [facility] Address: [address] [place] [address] Performed By: #### 5 7021-8 ####[facility] [id number] [place] [address] [place] Hematocrit (Bld) [Volume fraction] 24.5 % Low 39.0-51.0 [facility] Comment on above: Order Comment: Speci men Type: BLOOD SPECIMENOrdering Facility: [facility] Address: [address] [place] [address] Performed By: #### 5 7021-8 ####[facility]CL[facility] [id number] [place] [address] [place] Hemoglobin (Bld) [Mass/Vol] 7.2 g/dL Low 13.0-17.0 [facility] Comment on above: Order Comment: Speci men Type: BLOOD SPECIMENOrdering Facility: [facility] Address: [address] [place] [address] Performed By: #### 5 7021-8 ####[facility] [id number] [place] [address] [place] Immature granulocytes (Bld) [#/Vol] 0.08 10*3/uL Normal <0.10 [facility] Comment on above: Order Comment: Speci men Type: BLOOD SPECIMENOrdering Facility: [facility] Address: [address] [place] [address] Performed By: #### 5 7021-8 ####[facility] ERWNCLIA [id number] [place] [address] [place] Immature granulocytes/100 WBC (Bld) 0.8 % Normal [facility] Comment on above: Order Comment: Speci men Type: BLOOD SPECIMENOrdering Facility: [facility] Address: [address] [place] [address] Performed By: #### 5 7021-8 ####[facility]IDAGIANNALI [id number] [place] [address] [place] Lymphocytes (Bld) [#/Vol] 0.72 10*3/uL Low 1.00-4.00 [facility] Comment on above: Order Comment: Speci men Type: BLOOD SPECIMENOrdering Facility: [facility] Address: [address] [place] [address] Performed By: #### 5 7021-8 ####[facility] [id number] [place] [address] [place] Lymphocytes/100 WBC (Bld) 7.6 % Normal [facility] Comment on above: Order Comment: Speci men Type: BLOOD SPECIMENOrdering Facility: [facility] Address: [address] [place] [address] Performed By: #### 5 7021-8 ####[facility]CL[facility] [id number] [place] [address] [place] MCH (RBC) [Entitic mass] 27.2 pg Normal 26.0-34.0 [facility] Comment on above: Order Comment: Speci men Type: BLOOD SPECIMENOrdering Facility: [facility] Address: [address] [place] [address] Performed By: #### 5 7021-8 ####[facility]CL[facility] [id number] [place] [address] [place] MCHC (RBC) [Mass/Vol] 29.4 g/dL Low 30.5-36.0 [facility] Comment on above: Order Comment: Speci men Type: BLOOD SPECIMENOrdering Facility: [facility] Address: [address] [place] [address] Performed By: #### 5 7021-8 ####[facility] [id number] [place] [address] [place] MCV (RBC) [Entitic vol] 92.5 fL Normal 80.0-100.0 [facility] Comment on above: Order Comment: Speci men Type: BLOOD SPECIMENOrdering Facility: [facility] Address: [address] [place] [address] Performed By: #### 5 7021-8 ####[facility] [id number] [place] [address] [place] Monocytes (Bld) [#/Vol] 0.41 10*3/uL Normal <0.87 [facility] Comment on above: Order Comment: Speci men Type: BLOOD SPECIMENOrdering Facility: [facility] Address: [address] [place] [address] Performed By: #### 5 7021-8 ####[facility] [id number] [place] [address] [place] Monocytes/100 WBC (Bld) 4.3 % Normal [facility] Comment on above: Order Comment: Speci men Type: BLOOD SPECIMENOrdering Facility: [facility] Address: [address] [place] [address] Performed By: #### 5 7021-8 ####[facility]IDANCLI [id number] [place] [address] [place] Neutrophils (Bld) [#/Vol] 7.77 10*3/uL High 1.45-7.50 [facility] Comment on above: Order Comment: Speci men Type: BLOOD SPECIMENOrdering Facility: [facility] Address: [address] [place] [address] Performed By: #### 5 7021-8 ####[facility] TEDDYGANESH [id number] [place] [address] [place] Neutrophils/100 WBC (Bld) 82.4 % Normal [facility] Comment on above: Order Comment: Speci men Type: BLOOD SPECIMENOrdering Facility: [facility] Address: [address] [place] [address] Performed By: #### 5 7021-8 ####[facility] FL[facility]IDAGIANNAMckenna [id number] [place] [address] [place] Nucleated RBC (Bld) [#/Vol] 10*3/uL Normal <0.01 [facility] Comment on above: Order Comment: Speci men Type: BLOOD SPECIMENOrdering Facility: [facility] Address: [address] [place] [address] Performed By: #### 5 7021-8 ####[facility]IDAGIANNAMckenna [id number] [place] [address] [place] Nucleated RBC/100 WBC (Bld) [Ratio] 0.0 /100 WBC Normal [facility] Comment on above: Order Comment: Speci men Type: BLOOD SPECIMENOrdering Facility: [facility] Address: [address] [place] [address] Performed By: #### 5 7021-8 ####[facility]ENTERMckenna [id number] [place] [address] [place] Platelet mean volume (Bld) [Entitic vol] 9.2 fL Normal 9.0-12.7 [facility] Comment on above: Order Comment: Speci men Type: BLOOD SPECIMENOrdering Facility: [facility] Address: [address] [place] [address] Performed By: #### 5 7021-8 ####[facility]CL[facility] [id number] [place] [address] [place] Platelets (Bld) [#/Vol] 256 10*3/uL Normal 150-400 [facility] Comment on above: Order Comment: Speci men Type: BLOOD SPECIMENOrdering Facility: [facility] Address: [address] [place] [address] Performed By: #### 5 7021-8 ####[facility]CL[facility] [id number] [place] [address] [place] RBC (Bld) [#/Vol] 2.65 10*6/uL Low 4.20-6.00 [facility] Comment on above: Order Comment: Speci men Type: BLOOD SPECIMENOrdering Facility: [facility] Address: [address] [place] [address] Performed By: #### 5 7021-8 ####[facility] [id number] [place] [address] [place] WBC (Bld) [#/Vol] 9.45 10*3/uL Normal 3.70-11.00 [facility] Comment on above: Order Comment: Speci men Type: BLOOD SPECIMENOrdering Facility: [facility] Address: [address] [place] [address] Performed By: #### 5 7021-8 ####[facility]ALL[facility] [id number] [place] [address] [place] CEA SerPl-mCncon 01-17-2025 Carcinoembryonic Ag [Mass/Vol] 55.7 ng/mL High <=2.9 [facility] Comment on above: Order Comment: Speci men Type: BLOOD SPECIMENOrdering Facility: [facility] Address: [address] [place] [address] Result Comment: Carc inoembryonic antigen test is [...] used interchangeably. Performed By: #### 2 039-6 ####[facility] LABCLIA [id number] [address] [place] CNOVSPon 01-17-2025 CNOVSP Normal [facility] CNPNon 01-17-2025 CNPN Normal [facility] Comprehensive metabolic 2000 panelOrdered By: Cody Hurtado on 01-17-2025 Albumin [Mass/Vol] 2.8 g/dL Low 3.9 - 4.9 g/dL [facility] ALP [Catalytic activity/Vol] 105 U/L 38 - 113 U/L [facility] ALT [Catalytic activity/Vol] 11 U/L 10 - 54 U/L [facility] Anion gap [Moles/Vol] 14 mmol/L 8 - 15 mmol/L [facility] AST [Catalytic activity/Vol] 20 U/L 14 - 40 U/L [facility] Bilirubin [Mass/Vol] 0.6 mg/dL 0.2 - 1 .3 mg/dL [facility] Calcium [Mass/Vol] 8.8 mg/dL 8.5 - 10. 2 mg/dL [facility] Chloride [Moles/Vol] 99 mmol/L 98 - 10 7 mmol/L [facility] CO2 [Moles/Vol] 22 mmol/L 22 - 30 mmol/L [facility] Creatinine [Mass/Vol] 0.74 mg/dL 0.73 - 1.22 mg/dL [facility] GFR/1.73 sq M.predicted among non-blacks MDRD (S/P/Bld) [Vol rate/Area] 93 mL/min/{1.73_m2} - PINF [facility] Comment on above: Estimated Glomerular Filtration Rate [...] not accurately reflect actual GFR. Glucose [Mass/Vol] 288 mg/dL High 74 - 99 mg/dL [facility] Comment on above: The [place] Diab[employer] Association (ADA) provides guidance for [...] Standards of Medical Care in Diabetes 2016, [place] [employer]. Diabetes Care. 2016.39(Suppl 1). Interpretation and review of laboratory results Abnormal [facility] Potassium [Moles/Vol] 3.8 mmol/L 3.7 - 5.1 mmol/L [facility] Protein [Mass/Vol] 8.2 g/dL High 6.3 - 8.0 g/dL [facility] Sodium [Moles/Vol] 135 mmol/L Low 136 - 144 mmol/L [facility] Urea nitrogen [Mass/Vol] 10 mg/dL 9 - 24 mg/dL [facility] Comprehensive metabolic 2000 panelon 01-17-2025 Albumin [Mass/Vol] 2.8 g/dL Low 3.9-4.9 [facility] Comment on above: Order Comment: Speci men Type: BLOOD SPECIMENOrdering Facility: [facility] Address: [address] [place] [address] Performed By: #### 2 4323-8 ####[facility] [id number] [place] [address] [place] ALP [Catalytic activity/Vol] 105 U/L Normal 38-113 [facility] Comment on above: Order Comment: Patti men Type: BLOOD SPECIMENOrdering Facility: [facility] Address: [address] [place] [address] Performed By: #### 2 4323-8 ####[facility] MILLTOWNCLIA [id number] [place] [address] [place] ALT [Catalytic activity/Vol] 11 U/L Normal 10-54 [facility] Comment on above: Order Comment: Speci men Type: BLOOD SPECIMENOrdering Facility: [facility] Address: [address] [place] [address] Performed By: #### 2 4323-8 ####[facility] MILLTOWNCLIA [id number] [place] [address] [place] Anion gap [Moles/Vol] 14 mmol/L Normal 8-15 [facility] Comment on above: Order Comment: Speci men Type: BLOOD SPECIMENOrdering Facility: [facility] Address: [address] [place] [address] Performed By: #### 2 4323-8 ####[facility] MILLTOWNCLIA [id number] [place] [address] [place] AST [Catalytic activity/Vol] 20 U/L Normal 14-40 [facility] Comment on above: Order Comment: Speci men Type: BLOOD SPECIMENOrdering Facility: [facility] Address: [address] [place] [address] Performed By: #### 2 4323-8 ####[facility] MILLTOWNCLIA [id number] [place] [address] [place] Bilirubin [Mass/Vol] 0.6 mg/dL Normal 0.2-1.3 [facility] Comment on above: Order Comment: Speci men Type: BLOOD SPECIMENOrdering Facility: [facility] Address: [address] [place] [address] Performed By: #### 2 4323-8 ####[facility] MILLTOWNCLIA [id number] [place] [address] [place] Calcium [Mass/Vol] 8.8 mg/dL Normal 8.5-10.2 [facility] Comment on above: Order Comment: Speci men Type: BLOOD SPECIMENOrdering Facility: [facility] Address: [address] [place] [address] Performed By: #### 2 4323-8 ####[facility] ERWNCLIA [id number] [place] [address] [place] Chloride [Moles/Vol] 99 mmol/L Normal 98-107 [facility] Comment on above: Order Comment: Speci men Type: BLOOD SPECIMENOrdering Facility: [facility] Address: [address] [place] [address] Performed By: #### 2 4323-8 ####[facility] ERWNCLIA [id number] [place] [address] [place] CO2 [Moles/Vol] 22 mmol/L Normal 22-30 [facility] Comment on above: Order Comment: Speci men Type: BLOOD SPECIMENOrdering Facility: [facility] Address: [address] [place] [address] Performed By: #### 2 4323-8 ####[facility] [id number] [place] [address] [place] Creatinine [Mass/Vol] 0.74 mg/dL Normal 0.73-1.22 [facility] Comment on above: Order Comment: Speci men Type: BLOOD SPECIMENOrdering Facility: [facility] Address: [address] [place] [address] Performed By: #### 2 4323-8 ####[facility]CL[facility] [id number] [place] [address] [place] eGFRcr SerPlBld CKD-EPI 2020 93 mL/min/1.73m??? Normal >=60 [facility] Comment on above: Order Comment: Speci men Type: BLOOD SPECIMENOrdering Facility: [facility] Address: [address] [place] [address] Result Comment: Rod mated Glomerular Filtration Rate [...] actual GFR. Performed By: #### 2 4323-8 ####[facility]ENTERMckenna [id number] [place] [address] [place] Glucose [Mass/Vol] 288 mg/dL High 74-99 [facility] Comment on above: Order Comment: Willam robles Type: BLOOD SPECIMENOrdering Facility: [facility] Address: [address] [place] [address] Result Comment: The [place] Diabetes Association (ADA) provides guidance for cutoff [...] Standards of Medical Care in Diabetes 2016, [place] [employer]. Diabetes Care. 2016.39(Suppl 1). Performed By: #### 2 4323-8 ####[facility]A [id number] [place] [address] [place] Potassium [Moles/Vol] 3.8 mmol/L Normal 3.7-5.1 [facility] Comment on above: Order Comment: Willam robles Type: BLOOD SPECIMENOrdering Facility: [facility] Address: [address] [place] [address] Performed By: #### 2 4323-8 ####[facility] [id number] [place] [address] [place] Protein [Mass/Vol] 8.2 g/dL High 6.3-8.0 [facility] Comment on above: Order Comment: Speci men Type: BLOOD SPECIMENOrdering Facility: [facility] Address: [address] [place] [address] Performed By: #### 2 4323-8 ####[facility] [id number] [place] [address] [place] Sodium [Moles/Vol] 135 mmol/L Low 136-144 [facility] Comment on above: Order Comment: Speci men Type: BLOOD SPECIMENOrdering Facility: [facility] Address: [address] [place] [address] Performed By: #### 2 4323-8 ####[facility] [id number] [place] [address] [place] Urea nitrogen [Mass/Vol] 10 mg/dL Normal 9-24 [facility] Comment on above: Order Comment: Speci men Type: BLOOD SPECIMENOrdering Facility: [facility] Address: [address] [place] [address] Performed By: #### 2 4323-8 ####[facility] [id number] [place] [address] [place] Ferritin SerPl-mCncon 2024 Ferritin [Mass/Vol] 1043.0 ng/mL High 30.3-565.7 [facility] Comment on above: Order Comment: Speci men Type: BLOOD SPECIMENOrdering Facility: [facility] Address: [address] [place] [address] Performed By: #### 2 276-4, 37210-6 ####[facility] LABCLIA [id number] [place] [address] [place] Ferritin [Mass/Vol]on 2024 Interpretation and review of laboratory results Abnormal [facility] Iron and Iron binding capaci ty panelon 01-17-2025 Interpretation and review of laboratory results Abnormal [facility] Iron [Mass/Vol] 20 ug/dL Low 41 - 186 ug/dL [facility] Iron binding capacity [Mass/Vol] 162 ug/dL Low 232 - 386 ug/dL [facility] Iron/TIBC [Molar ratio] 12.3 % Low 15.0 - 57.0 % [facility] Iron [Mass/Vol] 20 ug/dL Low 41-186 [facility] Comment on above: Order Comment: Speci men Type: BLOOD SPECIMENOrdering Facility: [facility] Address: [address] [place] [address] Performed By: #### 2 276-4, 38754-0 ####[facility] LABCLIA [id number] [place] [address] [place] Iron binding capacity [Mass/Vol] 162 ug/dL Low 232-386 [facility] Comment on above: Order Comment: Speci men Type: BLOOD SPECIMENOrdering Facility: [facility] Address: [address] [place] [address] Performed By: #### 2 276-4, 38270-9 ####[facility] LABIA [id number] [place] [address] [place] Iron/TIBC [Molar ratio] 12.3 % Low 15.0-57.0 [facility] Comment on above: Order Comment: Speci men Type: BLOOD SPECIMENOrdering Facility: [facility] Address: [address] [place] [address] Performed By: #### 2 276-4, 63137-4 ####[facility] LABCLIA [id number] [place] [id number] [place] Laboratory - Chemistry and C hemistry - challengeon 01-17-2025 Ferritin [Mass/Vol] 1043 ng/mL High 30.3 - 5 65.7 ng/mL [facility] CNOVon 01-16-2025 CNOV Normal [facility] Culture, Blood (WB)on 2024 CUB Blood cultures x2, f rom two different sites No growth in [address] [facility] Comment on above: Performed By: #### B BETY BTS #### [facility] [address] [place], [address] Performed By: #### L 499.0043 #### [facility] [address] [place], [address] CNPNon 01-12-2025 CNPN Normal [facility] Absolute lymphocyte countOrd ered By: Srinivasan Baker on 01-10-2025 Lymphocytes Auto (Unsp spec) [#/Vol] 0.95 10*3/uL 0.83-4.51 [facility] Absolute neutrophil countOrd ered By: Srinivasan Baker on 01-10-2025 Neutrophils (Bld) [#/Vol] 11.7 10*3/uL High 2.0-7.7 [facility] Anion gap in Serum or Plasma Ordered By: Srinivasan Baker on 01-10-2025 Anion gap [Moles/Vol] 9 mmol/L - [facility] Automated lymphocyte count a s percentage of total leukocytesOrdered By: Srinivasan Baker on 01-10-2025 Lymphocytes/100 WBC Auto (Unsp spec) 6.9 % Low 19-41 [facility] BUN/creatinine ratioOrdered By: Srinivasan Baker on 01-10-2025 Urea nitrogen/Creatinine [Mass ratio] 16.4 mg/mg 10- [facility] Basic Metabolic Profile (BMP )on 01-10-2025 BUN/CRE 16.4 RATIO Normal - [facility] Comment on above: Performed By: #### L 100.0100, L500.2500 #### [facility] [address] [place], [address] Calcium [Mass/Vol] 7.9 mg/dL Normal 7.6-11.0 [facility] Comment on above: Performed By: #### L 100.0100, L500.2500 #### [facility] [address] [place], [address] Chloride [Moles/Vol] 106 mmol/L Normal 98-108 [facility] Comment on above: Performed By: #### L 100.0100, L500.2500 #### [facility] [address] [place], [address] CO2 [Moles/Vol] 23.7 mmol/L Normal 21.0-32.0 [facility] Comment on above: Performed By: #### L 100.0100, L500.2500 #### [facility] [address] [place], [address] Creatinine [Mass/Vol] 0.78 mg/dL Normal 0.70-1.20 [facility] Comment on above: Performed By: #### L 100.0100, L500.2500 #### [facility] [address] [place], [address] ECRCL 72.30 ml/min Normal 50-250 [facility] Comment on above: Performed By: #### L 100.0100, L500.2500 #### [facility] [address] [place], [address] GAP 9 Normal 5-15 [facility] Comment on above: Performed By: #### L 100.0100, L500.2500 #### [facility] [address] [place], [address] GFR/1.73 sq M.predicted among non-blacks MDRD (S/P/Bld) [Vol rate/Area] 92 mL/min/{1.73_m2} Normal >60 [facility] Comment on above: Result Comment: mL/m in/1.73m2 CKD-EPI Creatinine Equation (2020) Performed By: #### L 100.0100, L500.2500 #### [facility] [address] [place], [address] Glucose [Mass/Vol] 41 mg/dL Invalid Interpretation Code 70-99 [facility] Comment on above: Result Comment: Crit ical Result(s) Called at: by:??Results read back by same. CRITICAL RESULT CALLED TO ZULEMA BY MIGUEL ANGEL HIGGINBOTHAM. RESULTS READ BACK BY SAME. 0625 Performed By: #### L 100.0100, L500.2500 #### [facility] [address] [place], [address] Potassium [Moles/Vol] 3.0 mmol/L Low 3.3-5.1 [facility] Comment on above: Performed By: #### L 100.0100, L500.2500 #### [facility] [address] [place], [address] Sodium [Moles/Vol] 139 mmol/L Normal 133-145 [facility] Comment on above: Performed By: #### L 100.0100, L500.2500 #### [facility] [address] [place], [address] Urea nitrogen [Mass/Vol] 13 mg/dL Normal 4-19 [facility] Comment on above: Performed By: #### L 100.0100, L500.2500 #### [facility] [address] [place], [address] Basophil percentageOrdered B y: Srinivasan Baker on 01-10-2025 Basophils/100 WBC (Bld) 0.4 % 0-1 [facility] Bedside Glucoseon 01-10-2025 FINGERSTICK GLU 103 mg/dL Normal 74-106 [facility] Comment on above: Result Comment: EBONY GEMENT OF PATIENT CARE PER NURSING PROTOCOL Performed By: #### B RC, BTS #### [facility] [address] [place], [address] FINGERSTICK GLU 54 mg/dL Low 74-106 [facility] Comment on above: Result Comment: EBONY GEMENT OF PATIENT CARE PER NURSING PROTOCOL Performed By: #### L 501.080 #### [facility] [address] [place], [address] Bilirubin Test strip Ql (U)O rdered By: Alexandro Navarro on 01-10-2025 Bilirubin Ql (U) Negative Negative [facility] Bite cells detectionOrdered By: Srinivasan Baker on 01-10-2025 Bite cells LM Ql (Bld) RARE [facility] Blood manual differential co mment interpretation (narrative result)Ordered By: Srinivasan Baker on 01-10-2025 Manual differential comment Timoteo (Bld) [Interp] SCANNED [facility] Blood schistocyte detection by light microscopyOrdered By: Srniivasan Baker on 01-10-2025 Schistocytes LM Ql (Bld) [facility] CBC W/Diff, Automatedon 12-[address] [facility] Comment on above: Performed By: #### L 100.0100, L500.2500 #### [facility] [address] [place], [address] Anisocytosis Ql (Bld) 2+ Normal [facility] Comment on above: Performed By: #### L 100.0100, L500.2500 #### [facility] [address] [place], [address] BITE CELL RARE Normal [facility] Comment on above: Performed By: #### L 100.0100, L500.2500 #### [facility] [address] [place], [address] MACROCYTOSIS 1+ Normal [facility] Comment on above: Performed By: #### L 100.0100, L500.2500 #### [facility] [address] [place], [address] MICROCYTIC 1+ Normal [facility] Comment on above: Performed By: #### L 100.0100, L500.2500 #### [facility] [address] [place], [address] OVALOCYTE 1+ Normal [facility] Comment on above: Performed By: #### L 100.0100, L500.2500 #### [facility] [address] [place], [address] [facility] Comment on above: Performed By: #### L 100.0100, L500.2500 #### [facility] [address] [place], [address] PLT EST ADEQUATE Normal ADEQ [facility] Comment on above: Performed By: #### L 100.0100, L500.2500 #### [facility] [address] [place], [address] SMEAR COMMENT SCANNED Normal [facility] Comment on above: Performed By: #### L 100.0100, L500.2500 #### [facility] [address] [facility] [place], [address] Carbon dioxide, total [Moles /volume] in Central venous bloodOrdered By: Srinivasan Baker on 01-10-2025 CO2 [Moles/Vol] 23.7 mmol/L 21.0-32.0 [facility] Chloride assayOrdered By: Hailey Baker on 01-10-2025 Chloride [Moles/Vol] 106 mmol/L 98-108 [facility] Consultation - Intensiviston 01-10-2025 Consultation - Journeyman Molder [facility] Medical Records Department [address] [place] [address] Consultation - Journeyman Molder 01/10/25 0653 MR#: [id number] Acct: [id number] Name: RIGODIPTI MUSA Rep #: [id number] : 1945 79 From: Gordo Chaves DO PCP: Dr. Chaitanya Puri MD Status:ADM IN Location: ICU ICU08-1 Assessment Plan Assessment/Plan (1) Anemia: PLAN: Plan RECOMMENDATIONS: 1. Transfuse 1 additional unit of packed red blood cells. 2. Transition to Levaquin to complete 7 days of therapy. 3. No additional intervention or workup, per patient request. 4. CODE STATUS has been updated based upon discussion with the patient. 5. Outpatient follow-up with hospice care services next week. 6. Will sign off from a critical care perspective. IMPRESSIONS: 1. Shortness of breath Most likely secondary to presenting anemia with questionable pneumonia on chest imaging. I do not feel that the patient is septic. I do believe that his hypotension was likely the consequence of volume depletion and anemia. The patient understands that he has an incurable disease in the form of metastatic colon cancer, and at this time, does not wish to pursue any additional intervention or workup. The patient is agreeable to receiving 1 additional unit of packed red blood cells, after which time, he is requesting to be discharged home. The patient indicated that he is scheduled to be seen by palliative/hospice care services next week. From my perspective, the patient can be transitioned to Levaquin to complete 7 days of therapy. 2. History of anemia/metastatic colon cancer/diabetes mellitus/GERD/obstructive sleep apnea Complicates care, management, recovery and prognosis. Continue supportive measures as noted above. CODE STATUS to be updated to DNR comfort care, per patient request. The patient is requesting discharge home today and does not want any additional workup or intervention at this time. This note was generated with [employer] dictation software. It may contain incorrect words, spelling, and punctuation that were not noted in checking the note before signing. HPI Consult Data Date of Consult: 01/10/25 HPI Narrative Reason for Consultation: Anemia HPI Narrative: The patient is a 79-year-old male, with a history as outlined below, who presented to the emergency department on January 09 with shortness of breath. The patient had been referred to the emergency department for evaluation by his primary care provider over concerns for underlying pneumonia. The patient has a known history of metastatic colon cancer, which was previously being treated with chemotherapy under the discretion of Dr. Bar of oncology. However, due to the advanced nature of his disease, coupled with the side effects of the chemotherapy, the patient decided to discontinue therapy approximately 3 weeks ago. He does report an associated cough that has been productive of clear sputum. On presentation to the emergency department, the patient was documented to be afebrile and hemodynamically stable. Laboratory evaluation revealed a white blood cell count of 13,000 with a hemoglobin of 5.9 g/dL. Coagulation profile was notable for an INR of 1.3. Chemistry profile was unremarkable. Lactate was within normal limits. Total bilirubin was normal. Urine analysis was unremarkable. Chest x-ray was notable for pulmonary metastatic disease with questionable left lower lobe infiltrate. The patient was subsequently placed on antimicrobials and IV fluids. The patient was transfused 1 unit of packed red blood cells. Overnight, the patient has remained hemodynamically stable. This morning, the patient was still noted to be anemic with a hemoglobin of 6.3 g/dL. Stool for occult blood was negative. I did have a very murray discussion with the patient this morning regarding his CODE STATUS and overall goals of care. He indicated to me that he is scheduled to be seen by hospice care services next week. He is not currently interested in pursuing any additional intervention or workup. He understands that he has an underlying incurable disease and indicated that his goal to be discharged home today. He indicated that he is okay with receiving 1 more unit of packed red blood cells, but then would like to be discharged afterwards. Ultimately, the patient's wishes are to be made comfort care. [facility] Medical History Sleep apnea Colon cancer GERD (gastroesophageal reflux disease) High cholesterol HTN (hypertension) Home Medications ???Medication ???Instructions ???Recorded ???Last Taken ???Type aspirin 81 mg tablet,delayed 81 mg PO DAILY 01/07/22 01/08/25 H istory release glimepiride 4 mg tablet 4 mg PO DAILY 01/07/22 01/09/25 Hi story omeprazole 40 mg capsule,delayed 40 mg PO DAILY 01/07/22 01/08/25 H istory release (more content not included)... Normal [facility] Discharge Instructionon 12-27 Discharge Instruction [facility] Medical Records Department [address] [place] [address] Instructions for Home/Discharge Instructions 01/10/25 0800 MR#: [id number] Acct: [id number] Name: DIPTI SIERRA Rep #: [id number] : 1945 79 From: Lencho Ty DO PCP: Dr. Chaitanya Puri MD Status:ADM IN Discharge Instructions DC O2, CPAP, BIPAP needs Home O2 Discharge instructions: No Dressing / Incision Discharge Activity: Return to Normal Activity Weight Bearing Status: Full weight bearing Follow Up Care Test Results: Test results from this visit will be discussed in further detail at your follow-up appointment, if applicable. Discharge Plan Admission Admit Date/Time: 01/09/25 16:35 Primary Reason for Your Visit: anemia, pneumonia Attending Provider: Lencho Ty Primary Care Provider: Chaitanya Puri Consulting Providers: Darin Younger; Cesar Adair; Kalin Cobos; Gordo Chaves; Polo Nguyen; Barrett Brink; Fab Zarate; Ketty Napoles; Parminder Carroll; Socrates Christensen; Marco Antonio Churchill; Angela Ann; Sindhu Banks; Nicky Zavala; Lex Barillas; Bj Fishre; Kyle Siddiqi; Eddie Acosta; Felipa Christianson; Jam Lewis; Richy Sales; Nile Levy; Wisam Fermin; Srinivasan Baker Discharge Orders/Prescriptions Prescriptions: Continued omeprazole 40 mg Capsule,Delayed Release(Dr/Ec) 40 mg PO DAILY aspirin 81 mg Tablet,Delayed Release (Dr/Ec) 81 mg [...] TAKE 1 TABLET BY MOUTH AT BEDTIME Referrals / Follow Up: Chaitanya Puri MD [Primary Care Provider] - Aarti Bar DO [Med Staff - Active Staff] - See Referral Note (As scheduled) Disposition Disposition (needs filled in before D/C Order can be placed): Home, Self Care 01/10/25 0803 Lencho Ty DO CC: Dr. Cesar Adair MD; Dr. Darin Younger MD; Dr. Kalin Cobos MD; Dr. Chaitanya Puri MD; Dr. Polo Nguyen MD; Dr. Gordo Chaves DO; Dr. Barrett Brink MD; Dr. Fab Zarate MD; Dr. Parminder Carroll MD; Dr. Socrates Christensen MD; Dr. Marco Antonio Churchill MD; Dr. Angela Ann MD; Dr. Sindhu Banks MD; Dr. Nicky Zavala MD; Dr. Bj Fisher MD; Dr. Srinivasan Baker MD; Dr. Lex Barillas MD; Dr. Kyle Siddiqi MD; Dr. Jam Lewis MD; Dr. Felipa Christianson MD; Dr. Eddie Acosta DO; Dr. Richy Sales DO; Dr. Nile Levy MD; Dr. Wisam Fermin MD; Dr. Ketty Napoles MD Signed Normal [facility] Eosinophil percentageOrdered By: Srinivasan Baker on 01-10-2025 Eosinophils/100 WBC (Bld) 1.0 % 0-5 [facility] Erythrocyte distribution wid th ratioOrdered By: Srinivasan Baker on 01-10-2025 Erythrocyte distribution width (RBC) [Ratio] 21.1 % High 11.6-14.6 [facility] Erythrocyte distribution wid th standard deviationOrdered By: Srinivasan Baker on 01-10-2025 Erythrocyte distribution width (RBC) [Ratio] 67.3 fl High 35.1-43.9 [facility] Glomerular filtration rate ( GFR) estimation/1.73 sq m using serum, plasma, or whole bOrdered By: Srinivasan Baker on 01-10-2025 GFR/1.73 sq M.predicted among non-blacks MDRD (S/P/Bld) [Vol rate/Area] 92 mL/min/{1.73_m2} >60 [facility] Comment on above: mL/min/1.73m2 CKD-EP I Creatinine Equation (2020) [facility] deOrdered By: Lencho Ty on 01-10-2025 Glucose [Mass/Vol] 103 mg/dL 74-106 [facility] Comment on above: MANAGEMENT OF PATIEN T CARE PER NURSING PROTOCOL Hematocrit Auto (Bld) [Volum e fraction]Ordered By: Srinivasan Baker on 01-10-2025 Hematocrit (Bld) [Volume fraction] 20.8 % Low 40-54 [facility] Hemoglobin measurementOrdere d By: Srinivasan Baker on 01-10-2025 Hemoglobin (Bld) [Mass/Vol] 6.3 g/dL Low 13.0-16.5 [facility] Immature granulocytes/100 WB C Auto (Bld)Ordered By: Srinivasan Baker on 01-10-2025 Immature granulocytes/100 WBC (Bld) 2.000 % High 0.0-0.9 [facility] Comment on above: IG% - Immature Granu locytes (promyelocytes, myelocytes and metamyelocytes) > 1% indicates that a LEFT SHIFT is Present. Ketones Test strip Ql (U)Ord ered By: Alexandro Navarro on 01-10-2025 Ketones Ql (U) Negative Negative [facility] - Hematology and Cell countsOrdered By: Srinivasan Baker on 01-10-2025 Anisocytosis Ql (Bld) 2+ [facility] MCV (mean corpuscular volume ) determinationOrdered By: Srinivasan Baker on 01-10-2025 MCV (RBC) [Entitic vol] 90.4 fL 80-94 [facility] Macrocytes detectionOrdered By: Srinivasan Baker on 01-10-2025 Macrocytes Ql (Bld) 1+ [facility] Mean corpuscular hemoglobin (MCH) determinationOrdered By: Srinivasan Baker on 01-10-2025 MCH (RBC) [Entitic mass] 27.4 pg 27.0-32.0 [facility] Mean corpuscular hemoglobin concentration (MCHC) determinationOrdered By: Srinivasan Baker on 01-10-2025 MCHC (RBC) [Mass/Vol] 30.3 g/dL Low 32-36 [facility] Mean platelet volume determi nationOrdered By: Srinivasan Baker on 01-10-2025 Platelet mean volume (Bld) [Entitic vol] 9.5 fL 6.2-12.0 [facility] Microscopic analysis of urin e for red blood cells (RBC)Ordered By: Alexandro Navarro on 01-10-2025 Microscopic analysis of urine for red blood cells (RBC) 0 SEEN /hpf 0-5 [facility] Monocyte percentageOrdered B y: Srinivasan Baker on 01-10-2025 Monocytes/100 WBC (Bld) 4.9 % 0-10 [facility] Mucus LM Ql (Urine sed)Order ed By: Alexandro Navarro on 01-10-2025 Mucus Ql (Urine sed) 0 SEEN /hpf [facility] Neutrophil percentageOrdered By: Srinivasan Baker on 01-10-2025 Neutrophils/100 WBC (Bld) 84.8 % High 47-70 [facility] Nitrite Test strip Ql (U)Ord ered By: Alexandro Navarro on 01-10-2025 Nitrite Ql (U) Negative Negative [facility] Nucleated red blood cell per centageOrdered By: Srinivasan Baker on 01-10-2025 Nucleated RBC/100 WBC (Bld) [Ratio] 0.1 % 0-5 [facility] Ovalocyte detectionOrdered B y: Srinivasan Baker on 01-10-2025 Ovalocytes LM Ql (Bld) 1+ [facility] Platelet countOrdered By: Hailey Baker on 01-10-2025 Platelets (Bld) [#/Vol] 272 10*3/uL 150-450 [facility] Platelet estimateOrdered By: Srinivasan Baker on 01-10-2025 Platelets LM Ql (Bld) ADEQUATE ADEQ [facility] Potassium measurement (mass/ volume)Ordered By: Srinivasan Baker on 01-10-2025 Potassium (Unsp spec) [Mass/Vol] 3.0 mmol/L Low 3.3-5.1 [facility] Protein Test strip Ql (U)Ord ered By: Alexandro Navarro on 01-10-2025 Protein Ql (U) 15 mg/dl High Negative [facility] RBC Auto (Bld) [#/Vol]Ordere d By: Srinivasan Baker on 01-10-2025 RBC (Bld) [#/Vol] 2.30 10*6/uL Low 4.6-6.2 [facility] Serum creatinine measurement (mass/volume)Ordered By: Srinivasan Baker on 01-10-2025 Creatinine [Mass/Vol] 0.78 mg/dL 0.70-1.20 [facility] Serum glucose measurement (m ass/volume)Ordered By: Srinivasan Baker on 01-10-2025 Glucose [Mass/Vol] 41 mg/dL Critically low 70-99 [facility] Comment on above: Critical Result(s) C alled at: by: Results read back by same.CRITICAL RESULT CALLED TO [facility] BY MIGUEL ANGEL HIGGINBOTHAM. RESULTS READ BACK BY SAME. 0625 Serum or plasma calcium miley urement (mass/volume)Ordered By: Srinivasan Baker on 01-10-2025 Calcium [Mass/Vol] 7.9 mg/dL 7.6-11.0 [facility] Serum or plasma urea nitroge n measurement (mass/volume)Ordered By: Srinivasan Baker on 01-10-2025 Urea nitrogen [Mass/Vol] 13 mg/dL 4-19 [facility] Sodium levelOrdered By: Enrique Baker on 01-10-2025 Sodium [Moles/Vol] 139 mmol/L 133-145 [facility] Squamous epithelial cells de tection in urine sediment by light microscopyOrdered By: Alexandro Navarro on 01-10-2025 Epithelial cells.squamous LM Ql (Urine sed) 0-5 SEEN /hpf 0-5 [facility] Urinalysis, Completeon 01-10 BACTERIA 1+ /hpf Normal None Seen [facility] Comment on above: Order Comment: CLEAN CATCH Performed By: #### L 499.0042 #### [facility] [address] [place], [address] EPI,SQUAMOUS 0-5 SEEN Normal 0-5 [facility] Comment on above: Order Comment: CLEAN CATCH Performed By: #### L 499.0042 #### [facility] [address] [place], [address] Mucus Ql (Urine sed) 0 SEEN Normal [facility] Comment on above: Order Comment: CLEAN CATCH Performed By: #### L 499.0042 #### [facility] [address] [place], [address] RBC 0 SEEN Normal 0-5 [facility] Comment on above: Order Comment: CLEAN CATCH Performed By: #### L 499.0042 #### [facility] [address] [place], [address] WBC 0 SEEN Normal 0-5 [facility] Comment on above: Order Comment: CLEAN CATCH Performed By: #### L 499.0042 #### [facility] [address] [place], [address] Urine Cultureon 01-10-2025 URC Culture exhibits no growth. Normal [facility] Comment on above: Performed By: #### L 501.080 #### [facility] [address] [place], [address] Urine clarityOrdered By: Talon Navarro on 01-10-2025 Clarity (U) Clear Clear [facility] Urine color determinationOrd ered By: Alexandro Navarro on 01-10-2025 Color (U) Yellow Yellow [facility] Urine cultureOrdered By: Talon Navarro on 01-10-2025 Bacteria identified Cx Nom (U) Culture exhibits no growth. [facility] Urine glucose detectionOrder ed By: Alexandro Navarro on 01-10-2025 Glucose Ql (U) Normal mg/dl Normal [facility] Urine leukocyte esterase det ection by dipstickOrdered By: Alexandro Navarro on 01-10-2025 Leukocyte esterase Test strip Ql (U) Negative Negative [facility] Urine pHOrdered By: Alexandro Navarro on 01-10-2025 pH (U) 6.0 [pH] 5.0 - 8.0 [facility] Urine sediment bacteria coun t by microscopy (number/high power field)Ordered By: Alexandro Navarro on 01-10-2025 Bacteria LM.HPF (Urine sed) [#/Area] 1 /[HPF] None Seen [facility] Urine specific gravity measu rementOrdered By: Alexandro Navarro on 01-10-2025 Specific gravity (U) [Rel density] 1.010 1.002-1.030 [facility] Urine urobilinogen measureme ntOrdered By: Alexandro Navarro on 01-10-2025 Urobilinogen Ql (U) 4 mg/dl High Normal [facility] White blood cell (WBC) count Ordered By: Srinivasan Baker on 01-10-2025 WBC (Bld) [#/Vol] 13.8 10*3/uL High 4.4-11.0 [facility] White blood cell countOrdere d By: Alexandro Navarro on 01-10-2025 White blood cell count 0 SEEN /hpf 0-5 [facility] 12 Lead EKGon 01-09-2025 12 Lead EKG [facility] [address] [place] [address] 12 Lead EKG 01/09/25 1400 MR#: [id number] Acct: [id number] Name: DIPTI SIERRA Rep #: [id number] : 1945 79 From: Brayan Johansen MD Attending Dr: Dr. Lencho Ty DO Status: D IS IN Ordering Dr: Alexandro Navarro DO Date: 01/09/25 Location: ICU Sex: M C Admitted: 01/09/25 Test Reason : SOB Blood Pressure : */* mmHG Vent. Rate : 86 BPM Atrial Rate : 86 BPM P-R Int : 128 ms QRS Dur : 88 ms QT Int : 402 ms P-R-T Axes : 53 38 26 degrees QTcB Int : 481 ms Sinus rhythm with Premature atrial complexes BORDERLINE Reconfirmed by Brayan Johansen ([id number]), industrial editor JIM IBARRA ([id number]) on 01/11/2025 11:18:28 AM Referred By: Confirmed By: Brayan Johansen 01/11/251117 Date Brayan Johansen MD CC: Dr. Chaitanya Puri MD; Dr. Lencho Ty DO; Dr. Alexandro Navarro DO Signed Normal [facility] Absolute lymphocyte countOrd ered By: Alexandro Navarro on 01-09-2025 Lymphocytes Auto (Unsp spec) [#/Vol] 0.82 10*3/uL Low 0.83-4.51 [facility] Absolute neutrophil countOrd ered By: Alexandro Navarro on 01-09-2025 Neutrophils (Bld) [#/Vol] 11.9 10*3/uL High 2.0-7.7 [facility] Activated partial thrombopla stin time (aPTT) in platelet poor plasma by coagulation aOrdered By: Alexandro Navarro on 01-09-2025 aPTT Coag (PPP) [Time] 39.6 s High 24.1-36.2 [facility] Anion gap in Serum or Plasma Ordered By: Alexandro Navarro on 01-09-2025 Anion gap [Moles/Vol] 11 mmol/L 5-15 [facility] Automated lymphocyte count a s percentage of total leukocytesOrdered By: Alexandro Navarro on 01-09-2025 Lymphocytes/100 WBC Auto (Unsp spec) 6.0 % Low 19-41 [facility] BRCon 01-09-[address] [facility] Comment on above: Result Comment: [id number] OP RC READY Performed By: #### L 499.0043 #### [facility] [address] [place], [address] Result Comment: [id number] OP RC TRANSFUSED 01/09/252035 Performed By: #### L 501.080 #### [facility] [address] [place], [address] BUN/creatinine ratioOrdered By: Alexandro Navarro on 01-09-2025 Urea nitrogen/Creatinine [Mass ratio] 17.7 mg/mg 10-20 [facility] Basophil percentageOrdered B y: Alexandro Navarro on 01-09-2025 Basophils/100 WBC (Bld) 0.3 % 0-1 [facility] Bilirubin, totalOrdered By: Alexandro Navarro on 01-09-2025 Bilirubin [Mass/Vol] 0.93 mg/dL 0.00-1.30 [facility] Blood cultureOrdered By: Talon Navarro on 01-09-2025 Bacteria identified Cx Nom (Bld) No growth in [address] [facility] Bacteria identified Cx Nom (Bld) No growth in [address] [facility] Blood manual differential co mment interpretation (narrative result)Ordered By: Alexandro Navarro on 01-09-2025 Manual differential comment Timoteo (Bld) [Interp] SCANNED [facility] Blood polychromasia detectio n by light microscopyOrdered By: Alexandro Navarro on 01-09-2025 Polychromasia LM Ql (Bld) 1+ [facility] CBC W Auto Differential pane l (Bld)on 01-09-2025 Basophils (Bld) [#/Vol] 0.12 10*3/uL High [facility] Basophils/100 WBC (Bld) 0.5 % [facility] Differential cell count method Nom (Bld) Auto [facility] Eosinophils (Bld) [#/Vol] 0.08 10*3/uL [facility] Eosinophils/100 WBC (Bld) 0.4 % [facility] Erythrocyte distribution width (RBC) [Ratio] 22 % High 11.5 - 15.0 % [facility] Hematocrit (Bld) [Volume fraction] 26.1 % Low 39.0 - 51.0 % [facility] Hemoglobin (Bld) [Mass/Vol] 7.6 g/dL Low 13.0 - 17.0 g/dL [facility] Immature granulocytes (Bld) [#/Vol] 0.44 10*3/uL High [facility]F [facility] Immature granulocytes/100 WBC (Bld) 2 % [facility] Interpretation and review of laboratory results Abnormal [facility] Lymphocytes (Bld) [#/Vol] 1.44 10*3/uL [facility] Lymphocytes/100 WBC (Bld) 6.4 % [facility] MCH (RBC) [Entitic mass] 26.6 pg 26.0 - 34.0 pg [facility] MCHC (RBC) [Mass/Vol] 29.1 g/dL Low 30.5 - 36.0 g/dL [facility] MCV (RBC) [Entitic vol] 91.3 fL 80.0 - 100.0 fL [facility] Monocytes (Bld) [#/Vol] 1.24 10*3/uL High [facility] Monocytes/100 WBC (Bld) 5.5 % [facility] Neutrophils (Bld) [#/Vol] 19.16 10*3/uL High [facility] Neutrophils/100 WBC (Bld) 85.2 % [facility] Nucleated RBC (Bld) [#/Vol] 0.02 10*3/uL High [facility] Nucleated RBC/100 WBC (Bld) [Ratio] 0.1 % /100 WBC [facility] Platelet mean volume (Bld) [Entitic vol] 10 fL 9.0 - 12.7 fL [facility] Platelets (Bld) [#/Vol] 462 10*3/uL High [facility] RBC (Bld) [#/Vol] 2.86 10*6/uL Low 4.20 - 6.0 0 m/uL [facility] WBC (Bld) [#/Vol] 22.48 10*3/uL [facility] Basophils (Bld) [#/Vol] 0.12 10*3/uL High <0.11 [facility] Comment on above: Order Comment: Speci men Type: BLOOD SPECIMENOrdering Facility: [facility] [facility] Address: [address] [place], [place] [address] Performed By: #### 5 7021-8 ####[facility] [id number] [place] [address] [place] Basophils/100 WBC (Bld) 0.5 % Normal [facility] Comment on above: Order Comment: Speci men Type: BLOOD SPECIMENOrdering Facility: [facility] Address: [address] [place] [address] Performed By: #### 5 7021-8 ####[facility] [id number] [place] [address] [place] Differential cell count method Nom (Bld) Auto Normal [facility] Comment on above: Order Comment: Speci men Type: BLOOD SPECIMENOrdering Facility: [facility] Address: [address] [place] [address] Performed By: #### 5 7021-8 ####[facility] [id number] [place] [address] [place] Eosinophils (Bld) [#/Vol] 0.08 10*3/uL Normal <0.46 [facility] Comment on above: Order Comment: Speci men Type: BLOOD SPECIMENOrdering Facility: [facility] Address: [address] [place] [address] Performed By: #### 5 7021-8 ####[facility] [id number] [place] [address] [place] Eosinophils/100 WBC (Bld) 0.4 % Normal [facility] Comment on above: Order Comment: Speci men Type: BLOOD SPECIMENOrdering Facility: [facility] Address: [address] [place] [address] Performed By: #### 5 7021-8 ####[facility] [id number] [place] [address] [place] Erythrocyte distribution width (RBC) [Ratio] 22.0 % High 11.5-15.0 [facility] Comment on above: Order Comment: Speci men Type: BLOOD SPECIMENOrdering Facility: [facility] Address: [address] [place] [address] Performed By: #### 5 7021-8 ####[facility] TEDDYGANESH [id number] [place] [address] [place] Hematocrit (Bld) [Volume fraction] 26.1 % Low 39.0-51.0 [facility] Comment on above: Order Comment: Speci men Type: BLOOD SPECIMENOrdering Facility: [facility] Address: [address] [place] [address] Performed By: #### 5 7021-8 ####[facility] [id number] [place] [address] [place] Hemoglobin (Bld) [Mass/Vol] 7.6 g/dL Low 13.0-17.0 [facility] Comment on above: Order Comment: Speci men Type: BLOOD SPECIMENOrdering Facility: [facility] Address: [address] [place] [address] Performed By: #### 5 7021-8 ####[facility]ENTERMckenna [id number] [place] [address] [place] Immature granulocytes (Bld) [#/Vol] 0.44 10*3/uL High <0.10 [facility] Comment on above: Order Comment: Speci men Type: BLOOD SPECIMENOrdering Facility: [facility] Address: [address] [place] [address] Performed By: #### 5 7021-8 ####[facility] [id number] [place] [address] [place] Immature granulocytes/100 WBC (Bld) 2.0 % Normal [facility] Comment on above: Order Comment: Speci men Type: BLOOD SPECIMENOrdering Facility: [facility] Address: [address] [place] [address] Performed By: #### 5 7021-8 ####[facility] TEDDYWNCLIA [id number] [place] [address] [place] Lymphocytes (Bld) [#/Vol] 1.44 10*3/uL Normal 1.00-4.00 [facility] Comment on above: Order Comment: Speci men Type: BLOOD SPECIMENOrdering Facility: [facility] Address: [address] [place] [address] Performed By: #### 5 7021-8 ####[facility] [id number] [place] [address] [place] Lymphocytes/100 WBC (Bld) 6.4 % Normal [facility] Comment on above: Order Comment: Speci men Type: BLOOD SPECIMENOrdering Facility: [facility] Address: [address] [place] [address] Performed By: #### 5 7021-8 ####[facility] [id number] [place] [address] [place] MCH (RBC) [Entitic mass] 26.6 pg Normal 26.0-34.0 [facility] Comment on above: Order Comment: Speci men Type: BLOOD SPECIMENOrdering Facility: [facility] Address: [address] [place] [address] Performed By: #### 5 7021-8 ####[facility] [id number] [place] [address] [place] MCHC (RBC) [Mass/Vol] 29.1 g/dL Low 30.5-36.0 [facility] Comment on above: Order Comment: Speci men Type: BLOOD SPECIMENOrdering Facility: [facility] Address: [address] [place] [address] Performed By: #### 5 7021-8 ####[facility] [id number] [place] [address] [place] MCV (RBC) [Entitic vol] 91.3 fL Normal 80.0-100.0 [facility] Comment on above: Order Comment: Speci men Type: BLOOD SPECIMENOrdering Facility: [facility] Address: [address] [place] [address] Performed By: #### 5 7021-8 ####[facility] [id number] [place] [address] [place] Monocytes (Bld) [#/Vol] 1.24 10*3/uL High <0.87 [facility] Comment on above: Order Comment: Speci men Type: BLOOD SPECIMENOrdering Facility: [facility] Address: [address] [place] [address] Performed By: #### 5 7021-8 ####[facility] [id number] [place] [address] [place] Monocytes/100 WBC (Bld) 5.5 % Normal [facility] Comment on above: Order Comment: Speci men Type: BLOOD SPECIMENOrdering Facility: [facility] Address: [address] [place] [address] Performed By: #### 5 7021-8 ####[facility]CL[facility] [id number] [place] [address] [place] Neutrophils (Bld) [#/Vol] 19.16 10*3/uL High 1.45-7.50 [facility] Comment on above: Order Comment: Speci men Type: BLOOD SPECIMENOrdering Facility: [facility] Address: [address] [place] [address] Performed By: #### 5 7021-8 ####[facility] [id number] [place] [address] [place] Neutrophils/100 WBC (Bld) 85.2 % Normal [facility] Comment on above: Order Comment: Speci men Type: BLOOD SPECIMENOrdering Facility: [facility] Address: [address] [place] [address] Performed By: #### 5 7021-8 ####[facility] TEDDYBULLHEADBANG [id number] [place] [address] [place] Nucleated RBC (Bld) [#/Vol] 0.02 10*3/uL High <0.01 [facility] Comment on above: Order Comment: Speci men Type: BLOOD SPECIMENOrdering Facility: [facility] Address: [address] [place] [address] Performed By: #### 5 7021-8 ####[facility] [id number] [place] [address] [place] Nucleated RBC/100 WBC (Bld) [Ratio] 0.1 /100 WBC Normal [facility] Comment on above: Order Comment: Speci men Type: BLOOD SPECIMENOrdering Facility: [facility] Address: [address] [place] [address] Performed By: #### 5 7021-8 ####[facility] [id number] [place] [address] [place] Platelet mean volume (Bld) [Entitic vol] 10.0 fL Normal 9.0-12.7 [facility] Comment on above: Order Comment: Speci men Type: BLOOD SPECIMENOrdering Facility: [facility] Address: [address] [place] [address] Performed By: #### 5 7021-8 ####[facility] [id number] [place] [address] [place] Platelets (Bld) [#/Vol] 462 10*3/uL High 150-400 [facility] Comment on above: Order Comment: Speci men Type: BLOOD SPECIMENOrdering Facility: [facility] Address: [address] [place] [address] Performed By: #### 5 7021-8 ####[facility] TEDDYWNCLIA [id number] [place] [address] [place] RBC (Bld) [#/Vol] 2.86 10*6/uL Low 4.20-6.00 [facility] Comment on above: Order Comment: Speci men Type: BLOOD SPECIMENOrdering Facility: [facility] Address: [address] [place] [address] Performed By: #### 5 7021-8 ####[facility] [id number] [place] [address] [place] WBC (Bld) [#/Vol] 22.48 10*3/uL High 3.70-11.00 [facility] Comment on above: Order Comment: Speci men Type: BLOOD SPECIMENOrdering Facility: [facility] Address: [address] [place] [address] Performed By: #### 5 7021-8 ####[facility] [id number] [place] [address] [place] CBC W/Diff, Automatedon 07- HYPOCHROMASIA 2+ Normal [facility] Comment on above: Performed By: #### L 300.4310, L100.0100, L300.3900, L503.6005, L500.4050, M200.1000 #### [facility] [address] [place] [address] Anisocytosis Ql (Bld) 2+ Normal [facility] Comment on above: Performed By: #### L 300.4310, L100.0100, L300.3900, L503.6005, L500.4050, M200.1000 #### [facility] [address] [facility] [address] POLYCHROMASIA 1+ Normal [facility] Comment on above: Performed By: #### L 300.4310, L100.0100, L300.3900, L503.6005, L500.4050, M200.1000 #### [facility] [address] [place], [address] PLT EST ADEQUATE Normal ADEQ [facility] Comment on above: Performed By: #### L 300.4310, L100.0100, L300.3900, L503.6005, L500.4050, M200.1000 #### [facility] [address] [place], [address] SMEAR COMMENT SCANNED Normal [facility] Comment on above: Performed By: #### L 300.4310, L100.0100, L300.3900, L503.6005, L500.4050, M200.1000 #### [facility] [address] [place], [address] CNOVon 01-09-2025 CNOV Normal [facility] CPK Total, Creatine Kinaseon 01-09-2025 CPK TOTAL 24 U/L Normal 24-195 [facility] Comment on above: Performed By: #### L 501.3620, L501.5200 #### [facility] [address] [place], [address] Carbon dioxide, total [Moles /volume] in Central venous bloodOrdered By: Alexandro Navarro on 01-09-2025 CO2 [Moles/Vol] 26.0 mmol/L 21.0-32.0 [facility] Chest 1 View (Portable)on Chest 1 View (Portable) [facility] Imaging Services [address] [place] [address] Chest 1 View (Portable) MR#: [id number] Acct: [id number] Name: DIPTI SIERRA Rep #: [id number] : 1945 M 79 From: Ciara Goode PCP: Dr. Chaitanya Puri MD Status: DIS IN Study: Chest 1 View (Portable) Date of Exam: 01/09/25 Exam# [id number] Ordering Dr: Alexandro Navarro DO PROCEDURE: CHEST 1 VIEW (PORTABLE) 01/09/2025 REASON FOR EXAM: COUGH TECHNIQUE: Frontal view of the chest.. AP portable upright radiograph of the chest. COMPARISON: Chest x-ray study dated 01/07/2022 FINDINGS: Heart and Mediastinum: Heart size and configuration are within normal limits. Pulmonary vasculature is prominent centrally. Arteriosclerotic vascular disease of the aorta is noted. Trachea is midline. Lungs: A 4.8 cm nodular density is noted in the right lower lobe. Prominent alveolar markings are noted in the left lung. A 3.3 cm nodular density is projected over the left upper lobe laterally. Small bilateral pleural effusions are noted. Compressive atelectasis of the adjacent lung bases is noted. Alveolar airspace disease processes are seen in the lower lobes bilaterally. Bones: Diffuse osteopenia of the bony thorax is seen. No acute osseous abnormality is noted. A left-sided central venous line port tip is located in the region of the superior vena cava. Cardiac leads overlie the chest. RAD/Chest 1 View (Portable) IMPRESSION: Bilateral airspace disease processes most likely representing pneumonic infiltrates and/or compressive atelectasis. Small bilateral pleural effusions with adjacent compressive atelectasis of the lung bases. Recommendation: Follow-up x-ray to follow these processes until they completely resolve to exclude underlying pathology. CT examination may also be warranted if clinically warranted. Reading Location: [id number] CC: Dr. Chaitanya Puri MD; Dr. Alexandro Navarro DO Zoning Assistant: Signed Normal [facility] Chloride assayOrdered By: Jeffery Navarro on 01-09-2025 Chloride [Moles/Vol] 96 mmol/L Low 98-108 [facility] Comprehensive Metabolic Prof ilon 01-09-2025 Albumin [Mass/Vol] 2.4 g/dL Low 3.4-4.8 [facility] Comment on above: Performed By: #### B BTS #### [facility] [address] [place], [address] Albumin/Globulin [Mass ratio] 0.5 {ratio} Low 0.9-2.4 [facility] Comment on above: Performed By: #### B BETY, BTS #### [facility] [address] [place], [address] ALK PHOS 130 U/L High 40-129 [facility] Comment on above: Performed By: #### B BETY, BTS #### [facility] [address] [place], [address] ALT [Catalytic activity/Vol] 14 U/L Normal <=46 [facility] Comment on above: Performed By: #### B BETY, BTS #### [facility] [address] [place], [address] AST [Catalytic activity/Vol] 29 U/L Normal <=37 [facility] Comment on above: Performed By: #### B BETY, BTS #### [facility] [address] [place], [address] Bilirubin [Mass/Vol] 0.93 mg/dL Normal 0.00-1.30 [facility] Comment on above: Performed By: #### B BETY, BTS #### [facility] [address] [place], [address] BUN/CRE 17.7 RATIO Normal 10-20 [facility] Comment on above: Performed By: #### B BETY, BTS #### [facility] [address] [place], [address] Calcium [Mass/Vol] 8.5 mg/dL Normal 7.6-11.0 [facility] Comment on above: Performed By: #### B BETY, BTS #### [facility] [address] [place], [address] Chloride [Moles/Vol] 96 mmol/L Low 98-108 [facility] Comment on above: Performed By: #### B BETY, BTS #### [facility] [address] [place], [address] CO2 [Moles/Vol] 26.0 mmol/L Normal 21.0-32.0 [facility] Comment on above: Performed By: #### B BETY, BTS #### [facility] [address] [place], [address] Creatinine [Mass/Vol] 1.05 mg/dL Normal 0.70-1.20 [facility] Comment on above: Performed By: #### B BETY, BTS #### [facility] [address] [place], [address] ECRCL 55.08 ml/min Normal 50-250 [facility] Comment on above: Performed By: #### B BETY, BTS #### [facility] [address] [place], [address] GAP 11 Normal 5-15 [facility] Comment on above: Performed By: #### B BETY, BTS #### [facility] [address] [place], [address] GFR/1.73 sq M.predicted among non-blacks MDRD (S/P/Bld) [Vol rate/Area] 73 mL/min/{1.73_m2} Normal >60 [facility] Comment on above: Result Comment: mL/m in/1.73m2 CKD-EPI Creatinine Equation (2020) Performed By: #### B BETY, BTS #### [facility] [address] [place], [address] Globulin (S) [Mass/Vol] 5.1 g/dL High 2.2-4.2 [facility] Comment on above: Performed By: #### B BETY, BTS #### [facility] [address] [place], [address] Glucose [Mass/Vol] 177 mg/dL High 70-99 [facility] Comment on above: Performed By: #### B BETY, BTS #### [facility] [address] [place], [address] Potassium [Moles/Vol] 3.6 mmol/L Normal 3.3-5.1 [facility] Comment on above: Performed By: #### B BETY, BTS #### [facility] [address] [place], [address] Sodium [Moles/Vol] 133 mmol/L Normal 133-145 [facility] Comment on above: Performed By: #### B BETY, BTS #### [facility] [address] [place], [address] T PROT 7.5 g/dL Normal 5.9-8.4 [facility] Comment on above: Performed By: #### Dinesh ALBERT, BTS #### [facility] [address] [place], [address] Urea nitrogen [Mass/Vol] 19 mg/dL Normal 4-19 [facility] Comment on above: Performed By: #### B BETY, BTS #### [facility] [address] [place], [address] Comprehensive metabolic 2000 panelOrdered By: Cody Hurtado on 01-09-2025 Albumin [Mass/Vol] 2.7 g/dL Low 3.9 - 4.9 g/dL [facility] ALP [Catalytic activity/Vol] 149 U/L High 38 - 113 U/L [facility] ALT [Catalytic activity/Vol] 16 U/L 10 - 54 U/L [facility] Anion gap [Moles/Vol] 15 mmol/L 8 - 15 mmol/L [facility] AST [Catalytic activity/Vol] 29 U/L 14 - 40 U/L [facility] Bilirubin [Mass/Vol] 1.1 mg/dL 0.2 - 1 .3 mg/dL [facility] Calcium [Mass/Vol] 9.5 mg/dL 8.5 - 10. 2 mg/dL [facility] Chloride [Moles/Vol] 95 mmol/L Low 98 - 10 7 mmol/L [facility] CO2 [Moles/Vol] 22 mmol/L 22 - 30 mmol/L [facility] Creatinine [Mass/Vol] 0.98 mg/dL 0.73 - 1.22 mg/dL [facility] GFR/1.73 sq M.predicted among non-blacks MDRD (S/P/Bld) [Vol rate/Area] 79 mL/min/{1.73_m2} - PINF [facility] Comment on above: Estimated Glomerular Filtration Rate [...] 204 mg/dL High 74 - 99 mg/dL [facility] Comment on above: The [place] Di[employer] Association (ADA) provides guidance for [...] Standards of Medical Care in Diabetes 2016, [place] [employer]. Diabetes Care. 2016.39(Suppl 1). Interpretation and review of laboratory results Abnormal [facility] Potassium [Moles/Vol] 4.3 mmol/L 3.7 - 5.1 mmol/L [facility] Protein [Mass/Vol] 8.7 g/dL High 6.3 - 8.0 g/dL [facility] Sodium [Moles/Vol] 132 mmol/L Low 136 - 144 mmol/L [facility] Urea nitrogen [Mass/Vol] 16 mg/dL 9 - 24 mg/dL [facility] Comprehensive metabolic 2000 panelon 01-09-2025 Albumin [Mass/Vol] 2.7 g/dL Low 3.9-4.9 [facility] Comment on above: Order Comment: Speci men Type: BLOOD SPECIMENOrdering Facility: [facility] Address: [address] [place] [address] Performed By: #### 2 4323-8 ####[facility] [id number] [place] [address] [place] ALP [Catalytic activity/Vol] 149 U/L High 38-113 [facility] Comment on above: Order Comment: Speci men Type: BLOOD SPECIMENOrdering Facility: [facility] Address: [address] [place] [address] Performed By: #### 2 4323-8 ####[facility] [id number] [place] [address] [place] ALT [Catalytic activity/Vol] 16 U/L Normal 10-54 [facility] Comment on above: Order Comment: Speci men Type: BLOOD SPECIMENOrdering Facility: [facility] Address: [address] [place] [address] Performed By: #### 2 4323-8 ####[facility] [id number] [place] [address] [place] Anion gap [Moles/Vol] 15 mmol/L Normal 8-15 [facility] Comment on above: Order Comment: Speci men Type: BLOOD SPECIMENOrdering Facility: [facility] Address: [address] [place] [address] Performed By: #### 2 4323-8 ####[facility] [id number] [place] [address] [place] AST [Catalytic activity/Vol] 29 U/L Normal 14-40 [facility] Comment on above: Order Comment: Speci men Type: BLOOD SPECIMENOrdering Facility: [facility] Address: [address] [place] [address] Performed By: #### 2 4323-8 ####[facility] MILLTOWNCLIA [id number] [place] [address] [place] Bilirubin [Mass/Vol] 1.1 mg/dL Normal 0.2-1.3 [facility] Comment on above: Order Comment: Speci men Type: BLOOD SPECIMENOrdering Facility: [facility] Address: [address] [place] [address] Performed By: #### 2 4323-8 ####[facility] MILLTOWNCLIA [id number] [place] [address] [place] Calcium [Mass/Vol] 9.5 mg/dL Normal 8.5-10.2 [facility] Comment on above: Order Comment: Speci men Type: BLOOD SPECIMENOrdering Facility: [facility] Address: [address] [place] [address] Performed By: #### 2 4323-8 ####[facility] MILLTOWNCLIA [id number] [place] [address] [place] Chloride [Moles/Vol] 95 mmol/L Low 98-107 [facility] Comment on above: Order Comment: Speci men Type: BLOOD SPECIMENOrdering Facility: [facility] Address: [address] [place] [address] Performed By: #### 2 4323-8 ####[facility] MILLTOWNCLIA [id number] [place] [address] [place] CO2 [Moles/Vol] 22 mmol/L Normal 22-30 [facility] Comment on above: Order Comment: Speci men Type: BLOOD SPECIMENOrdering Facility: [facility] Address: [address] [place] [address] Performed By: #### 2 4323-8 ####[facility] MILLTOWNCLIA [id number] [place] [address] [place] Creatinine [Mass/Vol] 0.98 mg/dL Normal 0.73-1.22 [facility] Comment on above: Order Comment: Willam rboles Type: BLOOD SPECIMENOrdering Facility: [facility] Address: [address] [place] [address] Performed By: #### 2 4323-8 ####[facility] [id number] [place] [address] [place] Creatinine and Glomerular filtration rate.predicted panel (S/P/Bld) 79 mL/min/1.73m??? Normal >=60 [facility] Comment on above: Order Comment: Willam robles Type: BLOOD SPECIMENOrdering Facility: [facility] Address: [address] [place] [address] Result Comment: Rod mated Glomerular Filtration Rate [...] actual GFR. Performed By: #### 2 4323-8 ####[facility] [id number] [place] [address] [place] Glucose [Mass/Vol] 204 mg/dL High 74-99 [facility] Comment on above: Order Comment: Willam robles Type: BLOOD SPECIMENOrdering Facility: [facility] Address: [address] [place] [address] Result Comment: The [place] [employer] (ADA) provides guidance for cutoff [...] Standards of Medical Care in Diabetes 2016, [place] [employer]. Diabetes Care. 2016.39(Suppl 1). Performed By: #### 2 4323-8 ####[facility] [id number] [place] [address] [place] Potassium [Moles/Vol] 4.3 mmol/L Normal 3.7-5.1 [facility] Comment on above: Order Comment: Speci men Type: BLOOD SPECIMENOrdering Facility: [facility] Address: [address] [place] [address] Performed By: #### 2 4323-8 ####[facility] [id number] [place] [address] [place] Protein [Mass/Vol] 8.7 g/dL High 6.3-8.0 [facility] Comment on above: Order Comment: Speci men Type: BLOOD SPECIMENOrdering Facility: [facility] Address: [address] [place], [place] [address] Performed By: #### 2 4323-8 ####[facility] [id number] [place] [address] [place] Sodium [Moles/Vol] 132 mmol/L Low 136-144 [facility] Comment on above: Order Comment: Speci men Type: BLOOD SPECIMENOrdering Facility: [facility] Address: [address] [place] [address] Performed By: #### 2 4323-8 ####[facility] [id number] [place] [address] [place] Urea nitrogen [Mass/Vol] 16 mg/dL Normal 9-24 [facility] Comment on above: Order Comment: Speci men Type: BLOOD SPECIMENOrdering Facility: [facility] Address: [address] [place] [address] Performed By: #### 2 4323-8 ####[facility] [id number] [place] [address] [place] Emergency Department Summary on 01-09-2025 Emergency Department Summary [facility] Medical Records Department [address] [place] [address] Emergency Department Summary 01/09/25 MR#: [id number] Acct: [id number] Name: DIPTI SIERRA Rep #: [id number] : 1945 79 From: Alexandro Dillard PCP: Dr. Chaitanya Puri MD Status:REG ER Location: ED HPI History of Present [...] effects. Couple weeks ago was admitted to [facility] for day due to dehydration. Last 2 days increasing productive sputum. He denies urinary symptoms denies vomiting diarrhea. Reports heart rate was 120s in the office he had a 20 pound weight loss. Patient had prescription of Augmentin and Z-Ayah for which they picked up however not started. Outpatient chest x-ray concerning for new left sided pneumonia. Reported his white count increase also from lab work. Oncologist Dr. Bar. Prior similar symptoms: Yes PFSH PFSH Medical History Sleep apnea Colon cancer GERD (gastroesophageal reflux disease) High cholesterol HTN (hypertension) Home Medications ???Medication ???Instructions ???Recorded ???Last Taken ???Type aspirin 81 mg tablet,delayed 81 mg PO DAILY 01/07/22 01/08/25 H istory release glimepiride 4 mg tablet 4 mg PO DAILY 01/07/22 01/09/25 Hi story omeprazole 40 mg capsule,delayed 40 mg PO DAILY 01/07/22 01/08/25 H istory release pioglitazone 30 mg tablet 30 mg PO DAILY 01/07/22 01/08/25 H istory rosuvastatin 10 mg tablet 10 mg PO DAILY 01/07/22 01/09/25 H istory mometasone 50 mcg/actuation nasal 2 spray intranasal DAILY 02/01/24 01/08/25 History spray ondansetron HCl 8 mg tablet 8 mg PO Q8H PRN nausea and vomitin g 02/01/24 Unknown History prochlorperazine maleate 10 mg 10 mg PO Q6H PRN nausea and Unknown History tablet vomiting zolpidem 10 mg tablet 10 mg PO QHS PRN PRN sleep 4 Unknown History insulin glargine 100 unit/mL (3 20 unit subcut DAILY 11/24/24 Unkn own History mL) subcutaneous pen (Lantus Solostar U-100 Insulin) acyclovir 400 mg tablet 400 mg PO BID 01/09/25 01/09/25 Hi story amoxicillin 875 mg-potassium 1 tab PO BID 01/09/25 Unknown Hist ory clavulanate 125 mg tablet azithromycin 250 mg tablet 250 mg PO UD 01/09/25 Unknown Hist ory hydrochlorothiazide 12.5 mg tablet 12.5 mg PO DAILY 01/09/25 History magnesium chloride 71.5 mg 71.5 mg PO BID 01/09/25 01/09/25 H istory (magnesium chloride) tablet,delayed release (Slow-Mag) mirtazapine 15 mg tablet 15 mg PO QHS 01/09/25 Unknown Hist ory potassium chloride 10 mEq 10 meq PO BID 01/09/25 01/09/25 Hi story tablet,extended release Allergy/AdvReac Type Severity Reaction Status [...] Effort Normal Non-Labored Respiratory Depth Normal Respiratory (more content not included)... Normal [facility] Eosinophil percentageOrdered By: Alexandro Navarro on 01-09-2025 Eosinophils/100 WBC (Bld) 0.1 % 0-5 [facility] Erythrocyte distribution wid th ratioOrdered By: Alexandro Navarro on 01-09-2025 Erythrocyte distribution width (RBC) [Ratio] 21.6 % High 11.6-14.6 [facility] Erythrocyte distribution wid th standard deviationOrdered By: Alexandro Navarro on 01-09-2025 Erythrocyte distribution width (RBC) [Ratio] 69.5 fl High 35.1-43.9 [facility] Glomerular filtration rate ( GFR) estimation/1.73 sq m using serum, plasma, or whole bOrdered By: Alexandro Navarro on 01-09-2025 GFR/1.73 sq M.predicted among non-blacks MDRD (S/P/Bld) [Vol rate/Area] 73 mL/min/{1.73_m2} >60 [facility] Comment on above: mL/min/1.73m2 CKD-EP I Creatinine Equation (2020) [facility] H&P Exam - Hospitalist [facility] Medical Records Department [address] [place] [address] H P Exam - Hospitalist 01/09/25 1646 MR#: [id number] Acct: [id number] Name: DIPTI SIERRA Rep #: [id number] : 1945 79 From: Srinivasan Baker MD PCP: Dr. Chaitanya Puri MD Status:ADM IN Location: ICU ICU08-1 HPI - General General Date of Admission: 01/09/25 Date of Service: 01/09/25 Chief Complaint: Productive cough, mild shortness of breath for 1 to 2 weeks HPI Narrative DIPTI SIERRA, is a 79 M who was sent to ED by PCP for productive cough, shortness of breath for about 2 weeks. He is not doing well after recent chemotherapy about 2 weeks ago, FOLFIRI by his oncologist Dr. Aarti Bar. After chemotherapy patient had diarrhea, weakness, nausea and vomiting decreased oral intake and loss of weight from 180 to 160 pounds. Since then patient also getting productive cough with brownish/greenish sputum along with mild shortness of breath. He denies any fever or chills. His diarrhea has been resolved 2 days in the PCP office, he was found to have tachycardia heart rate more than 100 and, leukocytosis, 22.4 thousand, anemia hemoglobin 7.6 normal platelet count. Chest x-ray was done which shows left lower lobe consolidation and pulmonary metastasis. In ED, patient blood pressure was found very low, systolic 94, clinically dry, short of breath requiring 2 L of oxygen. He was afebrile. H H also found 5.9/19.8% Patient finally admitted in ICU with concern of possible sepsis [facility] Medical History Sleep apnea Colon cancer GERD (gastroesophageal reflux disease) High cholesterol HTN (hypertension) Home Medications ???Medication ???Instructions ???Recorded ???Last Taken ???Type aspirin 81 mg tablet,delayed 81 mg PO DAILY 01/07/22 01/08/25 H istory release glimepiride 4 mg tablet 4 mg PO DAILY 01/07/22 01/09/25 Hi story omeprazole 40 mg capsule,delayed 40 mg PO DAILY 01/07/22 01/08/25 H istory release pioglitazone 30 mg tablet 30 mg PO DAILY 01/07/22 01/08/25 H istory rosuvastatin 10 mg tablet 10 mg PO DAILY 01/07/22 01/09/25 H istory mometasone 50 mcg/actuation nasal 2 spray intranasal DAILY 02/01/24 01/08/25 History spray ondansetron HCl 8 mg tablet 8 mg PO Q8H PRN nausea and vomitin g 02/01/24 Unknown History prochlorperazine maleate 10 mg 10 mg PO Q6H PRN nausea and Unknown History tablet vomiting zolpidem 10 mg tablet 10 mg PO QHS PRN PRN sleep 4 Unknown History insulin glargine 100 unit/mL (3 20 unit subcut DAILY 11/24/24 Unkn own History mL) subcutaneous pen (Lantus Solostar U-100 Insulin) acyclovir 400 mg tablet 400 mg PO BID 01/09/25 01/09/25 Hi story amoxicillin 875 mg-potassium 1 tab PO BID 01/09/25 Unknown Hist ory clavulanate 125 mg tablet azithromycin 250 mg tablet 250 mg PO UD 01/09/25 Unknown Hist ory hydrochlorothiazide 12.5 mg tablet 12.5 mg PO DAILY 01/09/25 History magnesium chloride 71.5 mg 71.5 mg PO BID 01/09/25 01/09/25 H istory (magnesium chloride) tablet,delayed release (Slow-Mag) mirtazapine 15 mg tablet 15 mg PO QHS 01/09/25 Unknown Hist ory potassium chloride 10 mEq 10 meq PO BID 01/09/25 01/09/25 Hi story tablet,extended release Allergy/AdvReac Type Severity Reaction Status Date / Time lisinopril Allergy Severe Angioedema Verified 01/09/25 13:14 metformin Allergy Upset Verified 01/09/25 13:14 Stomach Surgical History History of ankle surgery History of knee replacement History of appendectomy History of colon resection Social History housing: house Smoking Status: Former smoker ROS ROS Narrative Constitutional: Reports fatigue and weakness after chemotherapy. No fever. Fatigue and frail HEENT: Reports systems reviewed and no addt'l complaints, except as documented Respiratory/Chest: Mild shortness of breath mainly on exertion. No wheezing. Prior history of smoking. CVS: No acute chest pressure or tightness. Gastrointestinal: Denies coffee ground emesis, hematemesis or vomiting. He had after chemotherapy as described in HPI Genitourinary: Denies burning urination or new urinary tract symptoms Musculoskeletal: Denies acute joint pain or limited range of motion. No acute injury Neurologic: Denies seizure-like symptoms. skin: No ulcer. 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 Reports systems reviewed and no addt'l complaints, except as documented Rest 14 ROS are negative except as mentioned in HPI Vital Signs Vital Signs Vital Signs: (more content not included)... Normal [facility] Hematocrit Auto (Bld) [Volum e fraction]Ordered By: Alexandro Navarro on 01-09-2025 Hematocrit (Bld) [Volume fraction] 19.8 % Low 40-54 [facility] Hemoglobin measurementOrdere d By: Alexandro Navarro on 01-09-2025 Hemoglobin (Bld) [Mass/Vol] 5.9 g/dL Low 13.0-16.5 [facility] Comment on above: CRITICAL VALUE MORALES D TO RODNEY NGUYEN01/09/25 1438 Jailyn Sena.RESULTS READ BACK BY SAME. Hypochromatic red blood cell detectionOrdered By: Alexandro Navarro on 01-09-2025 Hypochromia Ql (Bld) 2+ [facility] Immature granulocytes/100 WB C Auto (Bld)Ordered By: Alexandro Navarro on 01-09-2025 Immature granulocytes/100 WBC (Bld) 1.200 % High 0.0-0.9 [facility] Comment on above: IG% - Immature Granu locytes (promyelocytes, myelocytes and metamyelocytes) > 1% indicates that a LEFT SHIFT is Present. Influenza virus A and B and SARS-CoV-2 (COVID-19) and Respiratory syncytial virus RNAOrdered By: Srinivasan Baker on 01-09-2025 SARS-CoV-2 (COVID-19) RNA ROYCE+probe Ql (Unsp spec) [facility] Influenza virus A and B and SARS-CoV-2 (COVID-19) and Respiratory syncytial virus RNAOrdered By: Alexandro Le on 01-09-2025 SARS-CoV-2 (COVID-19) RNA ROYCE+probe Ql (Unsp spec) [facility] International normalized rat io (INR) calculationOrdered By: Alexandro Melanie on 01-09-2025 INR Coag (Bld) [Relative time] 1.3 {INR} [facility] - Chemistry and C hemistry - challengeOrdered By: Alexandro Navarro on 01-09-2025 AST [Catalytic activity/Vol] 29 U/L <38 [facility] - Hematology and Cell countsOrdered By: Alexandro Navarro on 01-09-2025 Anisocytosis Ql (Bld) 2+ [facility] Lactic Acidon 01-09-2025 Lactate [Moles/Vol] 1.4 mmol/L Normal 0.0-2.0 [facility] Comment on above: Order Comment: Y Performed By: #### B RC, BTS #### [facility] [address] [place], [place], [id number] Lactic acid measurementOrder ed By: Alexandro Le on 01-09-2025 Lactate [Moles/Vol] 1.4 mmol/L 0.0-2.0 [facility] Legionella Antigen Urineon 0 01-09-2025 LEGU URINE, CLEAN CATCH Legionella Antigen result interpretation: L pneumo Ag Ur Ql Negative Presumptive negative for Legionella pneumophila serogroup 1 antigen in urine, suggesting no recent or current infection. Legionella Ag, Urine Negative (See interpretation below) Normal [facility] Comment on above: Performed By: #### L 499.0043 #### [facility] [address] [place], [address] M R Staph Aureus DNA by PCRo n 01-09-2025 MRSA DNA ASSAY Negative Normal Negative [facility] Comment on above: Performed By: #### L 499.0043 #### [facility] [address] [place], [address] M100.678on 01-09-2025 M100.678 Pending SARS-CoV-2 (COVID 19) Negative INFLUENZA A Negative INFLUENZA B Negative RSV PCR Negative Normal [facility] Comment on above: Performed By: #### L 499.0042 #### [facility] [address] [place], [address] M100.678 Pending SARS-CoV-2 (COVID 19) Negative INFLUENZA A Negative INFLUENZA B Negative RSV PCR Negative Normal [facility] Comment on above: Performed By: #### L 499.0042 #### [facility] [address] [place], [place], [id number] MCV (mean corpuscular volume ) determinationOrdered By: Alexandro Navarro on 01-09-2025 MCV (RBC) [Entitic vol] 90.4 fL 80-94 [facility] Magnesiumon 01-09-2025 Magnesium [Mass/Vol] 2.2 mg/dL Normal 1.5-2.2 [facility] Comment on above: Performed By: #### L 501.3620, L501.5200 #### [facility] [address] [place], [place], [id number] Magnesium measurement (mass/ volume)Ordered By: Srinivasan Baker on 01-09-2025 Magnesium (Unsp spec) [Mass/Vol] 2.2 mg/dL 1.5-2.2 [facility] Mean corpuscular hemoglobin (MCH) determinationOrdered By: Alexandro Navarro on 01-09-2025 MCH (RBC) [Entitic mass] 26.9 pg Low 27.0-32.0 [facility] Mean corpuscular hemoglobin concentration (MCHC) determinationOrdered By: Alexandro Navarro on 01-09-2025 MCHC (RBC) [Mass/Vol] 29.8 g/dL Low 32-36 [facility] Mean platelet volume determi nationOrdered By: Alexandro Navarro on 01-09-2025 Platelet mean volume (Bld) [Entitic vol] 9.8 fL 6.2-12.0 [facility] Monocyte percentageOrdered B y: Alexandro Navarro on 01-09-2025 Monocytes/100 WBC (Bld) 5.3 % 0-10 [facility] Neutrophil percentageOrdered By: Alexandro Navarro on 01-09-2025 Neutrophils/100 WBC (Bld) 87.1 % High 47-70 [facility] Nucleated red blood cell per centageOrdered By: Alexandro Navarro on 01-09-2025 Nucleated RBC/100 WBC (Bld) [Ratio] 0 % 0-5 [facility] Partial Thromboplast Timeon 01-09-2025 aPTT Coag (Bld) [Time] 39.6 s High 24.1-36.2 [facility] Comment on above: Performed By: #### B LIANA ALBERTS #### [facility] [address] [place], [address] (741) Platelet countOrdered By: Jeffery peñaloza Melanie on 01-09-2025 Platelets (Bld) [#/Vol] 280 10*3/uL 150-450 [facility] Platelet estimateOrdered By: Alexandro Le on 01-09-2025 Platelets LM Ql (Bld) ADEQUATE ADEQ [facility] Potassium measurement (mass/ volume)Ordered By: Alexandro Le on 01-09-2025 Potassium (Unsp spec) [Mass/Vol] 3.6 mmol/L 3.3-5.1 [facility] Prothrombin Time w/INRon INR Coag (PPP) [Relative time] 1.3 {INR} Normal [facility] Comment on above: Performed By: #### B BETY, BTS #### [facility] [address] [place], [address] (800 PT Coag (PPP) [Time] 16.4 s High 11.7-14.9 [facility] Comment on above: Performed By: #### B BETY, BTS #### [facility] [address] [place], [address] (254 Prothrombin timeOrdered By: Alexandro Navarro on 01-09-2025 PT Coag (PPP) [Time] 16.4 s High 11.7-14.9 [facility] RBC Auto (Bld) [#/Vol]Ordere d By: Alexandro Navarro on 01-09-2025 RBC (Bld) [#/Vol] 2.19 10*6/uL Low 4.6-6.2 [facility] Serum creatinine measurement (mass/volume)Ordered By: Alexandro Navarro on 01-09-2025 Creatinine [Mass/Vol] 1.05 mg/dL 0.70-1.20 [facility] Serum globulin measurementOr dered By: Alexandro Navarro on 01-09-2025 Globulin (S) [Mass/Vol] 5.1 g/dL High 2.2-4.2 [facility] Serum glucose measurement (m ass/volume)Ordered By: Alexandro Navarro on 01-09-2025 Glucose [Mass/Vol] 177 mg/dL High 70-99 [facility] Serum or plasma alanine masrhall otransferase (ALT) measurementOrdered By: Alexandro Navarro on 01-09-2025 ALT [Catalytic activity/Vol] 14 U/L <47 [facility] Serum or plasma albumin miley urement (mass/volume)Ordered By: Alexandro Navarro on 01-09-2025 Albumin [Mass/Vol] 2.4 g/dL Low 3.4-4.8 [facility] Serum or plasma albumin/glob ulin mass ratioOrdered By: Alexandro Navarro on 01-09-2025 Albumin/Globulin [Mass ratio] 0.5 {ratio} Low 0.9-2.4 [facility] Serum or plasma alkaline ruiz sphatase measurementOrdered By: Alexandro Navarro on 01-09-2025 ALP [Catalytic activity/Vol] 130 U/L High 40-129 [facility] Serum or plasma calcium miley urement (mass/volume)Ordered By: Alexandro Navarro on 01-09-2025 Calcium [Mass/Vol] 8.5 mg/dL 7.6-11.0 [facility] Serum or plasma creatine kin ase activityOrdered By: Srinivasan Baker on 01-09-2025 CK [Catalytic activity/Vol] 24 U/L 24-195 [facility] Serum or plasma urea nitroge n measurement (mass/volume)Ordered By: Alexandro Navarro on 01-09-2025 Urea nitrogen [Mass/Vol] 19 mg/dL 4-19 [facility] Sodium levelOrdered By: Alexandro Navarro on 01-09-2025 Sodium [Moles/Vol] 133 mmol/L 133-145 [facility] Stool Occult Blood iFOBon STOB Negative Normal [facility] Comment on above: Performed By: #### L 499.0042 #### [facility] [address] [place], [place], [id number] Stool gastrointestinal hemog lobin detection by immunologic methodOrdered By: Alexandro Navarro on 01-09-2025 Lower GI hemoglobin IA Ql (Stl) [facility] Strep pneumoniae Antig(UR,CS F)on 01-09-2025 STPAG URINE INTERPRETATION Strep pneumoniae Antig(UR,CSF) Negative Urine Presumptive negative for pneumococcal pneumonia, suggesting no current or recent pneumococcal infection. Infection due to S pneumoniae cannot be ruled out since the antigen present in the sample may be below the detection limit of the test. Strep pneumo Test Negative URINE (See interpretation below) Normal [facility] Comment on above: Performed By: #### L 499.0043 #### [facility] [address] [place], [address] Total proteinOrdered By: Talon Navarro on 01-09-2025 Protein [Mass/Vol] 7.5 g/dL 5.9-8.4 [facility] Type AND Screenon 01-09-2025 Ab SCREEN GEL Negative Normal [facility] Comment on above: Order Comment: CMV N EG? NNumber of units to transfuse: 1Is pt's Hgb is = to 7.0 mg/dl or Hct </= 21%? YReason for Ordering Blood: ChronicAre the blood/blood products to be transfused? YIs the patient having/had surgery? Jerman Dunbar Performed By: #### L 501.080 #### [facility] [address] [place], [place], [address] Urine Legionella pneumophila antigen detectionOrdered By: Srinivasan Baker on 01-09-2025 L. pneumophila Ag Ql (U) [facility] White blood cell (WBC) count Ordered By: Alexandro Navarro on 01-09-2025 WBC (Bld) [#/Vol] 13.7 10*3/uL High 4.4-11.0 [facility] XR CHEST 2V FRONTAL/LATon XR CHEST 2V FRONTAL/LAT Normal [facility] XR Chest PA and Lateralon IMPRESSION: Possible small area of consolidation in the left lower lobe. Increasing pulmonary metastases. Zoning Assistant: PSCDinesh Transcribe Date/Time: Jan 09 2025 10:08A Dictated by : NGA HILLIARD MD This examination was interpreted and the report reviewed and electronically signed by: NGA HILLIARD MD on Jan 09 2025 10:09AM [facility] DIVISION OF RADIOLOGY * * *Final Report* [...] soft tissues: Unremarkable. DIVISION OF RADIOLOGY Provider, [facility] Daniela [facility] - 01/09/2025 * * *Final Report* * [...] the left lower lobe. Increasing pulmonary metastases. Zoning Assistant: PSCB Transcribe Date/Time: Jan 09 2025 10:08A Dictated by : NGA HILLIARD MD This examination was interpreted and the report reviewed and electronically signed by: NGA HILLIARD MD on Jan 09 2025 10:09AM EST [facility] Radiology Study observation (narrative) [facility] XR Chest PA and LateralOrder ed By: [facility] Provider on 01-09-2025 [facility] ALBUMIN/CREATININE RATIO, UR INEon 01-06-2025 Albumin DL <= 20 mg/L (U) [Mass/Vol] 33.7 mg/L Normal [facility] Comment on above: Order Comment: Speci men Type: URINE SPECIMENOrdering Facility: [facility] Address: [address] [place] [address] Performed By: #### U ACR ####[facility] LABCLIA [id number] [place] [address] [place] Albumin/Creatinine (U) [Mass ratio] 19 mg/g Normal <30 [facility] Comment on above: Order Comment: Speci men Type: URINE SPECIMENOrdering Facility: [facility] Address: [address] [place] [address] Result Comment: Adul t Male and Female Nephrotic Criteria:<30 mg/g is considered normal to mildly sslrxfsgi20-003 mg/g is considered moderately increased>300 mg/g is considered severely increasedKDIGO. (2013). KDIGO 2012 Clinical Practice Guideline for the Evaluation and Management of Chronic Kidney Disease. Official Journal of the International Society of Nephrology, 3(1), 1-150. Performed By: #### U ACR ####[facility] LABCLIA [id number] [place] [address] [place] Creatinine (U) [Mass/Vol] 179.6 mg/dL Normal 20.0-300.0 [facility] Comment on above: Order Comment: Speci men Type: URINE SPECIMENOrdering Facility: [facility] Address: [address] [place] [address] Performed By: #### U ACR ####[facility] LABCLIA [id number] [place] [id number] [facility] HbA1c (Bld)on 01-06-2025 Average glucose Estimated from glycated hemoglobin (Bld) [Mass/Vol] 120 mg/dL Normal [facility] Comment on above: Order Comment: Speci men Type: BLOOD SPECIMENOrdering Facility: [facility] Address: [address] [place] [address] Result Comment: eAG: (Estimated average glucose) is a calculated value from HgbA1c and is sales representative livestock of the average blood glucose level in the last 2-3 month period. Performed By: #### 5 5454-3 ####[facility] LABCLIA [id number] [place] [id number] [place] [facility] HbA1c (Bld) [Mass fraction] 5.8 % High 4.3-5.6 [facility] Comment on above: Order Comment: Speci men Type: BLOOD SPECIMENOrdering Facility: [facility] Address: [address] [place] [address] Result Comment: Amer [place] Diabetes Association guidelines indicate that patients with HgbA1c in the range 5.7-6.4% are at increased risk for development of diabetes, and intervention by lifestyle modification may be beneficial. HgbA1c greater or equal to 6.5% is considered diagnostic of diabetes. Performed By: #### 5 5454-3 ####[facility] LABCLIA [id number] [place] [id number] [facility] LIPID PANEL, NONFASTINGon Cholesterol [Mass/Vol] 96 mg/dL Normal <200 [facility] Comment on above: Order Comment: Speci men Type: BLOOD SPECIMENOrdering Facility: [facility] Address: [address] [place], [place] [id number] Result Comment: <200 mg/dL, Desirable 200-239 mg/dL, Borderline high>239 mg/dL, High Performed By: #### L IPNF ####[facility] LABCLIA [id number] [address] HDL CHOLESTEROL, NF 38 mg/dL Low >39 [facility] Comment on above: Order Comment: Willam rolbes Type: BLOOD SPECIMENOrdering Facility: [facility] Address: [address] [place] [address] Result Comment: 40-5 9 mg/dL, Acceptable>59 mg/dL, High: Negative risk factor for coronary heart disease<40 mg/dL, Low: Positive risk factor for coronary heart disease Performed By: #### L IPNF ####[facility] LABCLIA [id number] [address] LDL CHOLESTEROL CALCULATED, NF 44 mg/dL Normal <100 [facility] Comment on above: Order Comment: Willam robles Type: BLOOD SPECIMENOrdering Facility: [facility] Address: [address] [place] [address] Result Comment: <100 mg/dL, Optimal 100-129 mg/dL, Near optimal/above optimal 130-159 mg/dL, Borderline high 160-189 mg/dL, High>189 mg/dL, Very highSecondary prevention optimal LDL Cholesterol levels are recommended to be <70 mg/dLLDL cholesterol is calculated using the Romo-NIH equation. Performed By: #### L IPNF ####[facility] LABIA [id number] [address] OF [facility] LDL/HDL RATIO, NF 1.16 mg/dL Normal <2.54 [facility] Comment on above: Order Comment: Willam robles Type: BLOOD SPECIMENOrdering Facility: [facility] Address: [address] [place] [address] Result Comment: Refe rence:1. National Cholesterol Education Program ATP III Guideline At-A-Glance Quick Desk Reference: National Heart, Lung, and Blood Roy. National Institutes of Health. 2001: NIH Publication No. 01-3305.2. An International Atherosclerosis Society position paper: global recommendations for the management of dyslipidemia: executive summary, Atherosclerosis. 2014: 232(2):410-413. Performed By: #### L IPNF ####[facility] LABCLIA [id number] [address] [place] NON HDL CHOL, NF 58 mg/dL Normal <130 [facility] Comment on above: Order Comment: Speci men Type: BLOOD SPECIMENOrdering Facility: [facility] Address: [address] [place] [address] Result Comment: <130 mg/dL, Optimal 130-159 mg/dL, Near optimal/above optimal 160-189 mg/dL, Borderline high 190-219 mg/dL, High>219 mg/dL, Very highSecondary prevention optimal non HDL Cholesterol levels are recommended to be <100 mg/dL Performed By: #### L IPNF ####[facility] LABIA [id number] [address] T CHOL/HDL RATIO NF 2.53 mg/dL Normal <5.10 [facility] Comment on above: Order Comment: Willam [facility] Type: BLOOD SPECIMENOrdering Facility: [facility] Address: [address] [place] [address] Performed By: #### L IPNF ####[facility] LABIA [id number] [address] [place] TRIGLYCERIDES, NF 65 mg/dL Normal <150 [facility] Comment on above: Order Comment: Willam [facility] Type: BLOOD SPECIMENOrdering Facility: [facility] Address: [address] [place] [address] Result Comment: <150 mg/dL, Normal 150-199 mg/dL, Borderline high 200-499 mg/dL, High>499 mg/dL, Very high Performed By: #### L IPNF ####[facility] LABIA [id number] [place] [address] [place] VLDL CHOLESTEROL, NF 9 mg/dL Normal <30 [facility] Comment on above: Order Comment: Speci margaret Type: BLOOD SPECIMENOrdering Facility: [facility] Address: [address] [place] [address] Performed By: #### L IPNF ####[facility] LABCLIA [id number] [place] [address] [place] CNPNon 01-02-2025 CNPN Normal [facility] CNPNon 12-21-2024 CNPN Normal [facility] ALLIED HEALTHon 12-20-2024 ALLIED HEALTH HNO ID: [id number] Author: DELGADO DUNLAP RT(R) Service: Radiology Author Type: Tow Truck Dispatcher Type: Allied Health Filed: 12/20/2024 11:54 Note [...] PATIENT PRESENTS WITH AN IMPLANTABLE OR ATTACHED GEOSPATIAL DEVELOPER: No RADIOLOGY DEPARTMENT: General X-ray: Exam(s) Completed: Chest X-Ray PERIPHERAL IV DATA: Not applicable SIGNED BY: RT Isiah(R) December 20, 2024 11:54 AM Normal [facility] CBC W Auto Differential pane l (Bld)on 12-20-2024 Anisocytosis Ql (Bld) Present Normal [facility] Comment on above: Order Comment: Willam robles Type: BLOOD SPECIMEN [facility] Address: [address] [place] [address] Performed By: #### 5 7021-8 #### [facility] CLIA [id number] [address] [place] [address] [place] Basophils (Bld) [#/Vol] 0.00 10*3/uL Normal <0.11 [facility] Comment on above: Order Comment: Speci men Type: BLOOD SPECIMEN [facility] Address: [address] [place] [address] Performed By: #### 5 7021-8 #### [facility] CLIA [id number] [address] [place] [address] [place] Basophils/100 WBC (Bld) 0.0 % Normal [facility] Comment on above: Order Comment: Speci men Type: BLOOD SPECIMEN [facility] Address: [address] [place] [address] Performed By: #### 5 7021-8 #### [facility] CLIA [id number] [address] [place] [address] [place] Differential cell count method Nom (Bld) Manual Normal [facility] Comment on above: Order Comment: Speci men Type: BLOOD SPECIMEN [facility] Address: [address] [place] [address] Performed By: #### 5 7021-8 #### [facility] CLIA [id number] [address] [place] [address] [place] Eosinophils (Bld) [#/Vol] 0.00 10*3/uL Normal <0.46 [facility] Comment on above: Order Comment: Speci men Type: BLOOD SPECIMEN [facility] Address: [address] [place] [address] Performed By: #### 5 7021-8 #### [facility] CLIA [id number] [address] [place] [address] [place] Eosinophils/100 WBC (Bld) 0.0 % Normal [facility] Comment on above: Order Comment: Speci men Type: BLOOD SPECIMEN [facility] Address: [address] [place] [address] Performed By: #### 5 7021-8 #### [facility] CLIA [id number] [address] [place] [address] [place] Erythrocyte distribution width (RBC) [Ratio] 20.4 % High 11.5-15.0 [facility] Comment on above: Order Comment: Speci men Type: BLOOD SPECIMEN [facility] Address: [address] [place] [address] Performed By: #### 5 7021-8 #### [facility] CLIA [id number] [address] [place] Hematocrit (Bld) [Volume fraction] 26.3 % Low 39.0-51.0 [facility] Comment on above: Order Comment: Speci men Type: BLOOD SPECIMEN [facility] Address: [address] [place] [address] Performed By: #### 5 7021-8 #### [facility] CLIA [id number] [address] [place] Hemoglobin (Bld) [Mass/Vol] 8.1 g/dL Low 13.0-17.0 [facility] Comment on above: Order Comment: Speci men Type: BLOOD SPECIMEN [facility] Address: [address] [place] [address] Performed By: #### 5 7021-8 #### [facility] CLIA [id number] [address] [place] [address] [place] Lymphocytes (Bld) [#/Vol] 0.56 10*3/uL Low 1.00-4.00 [facility] Comment on above: Order Comment: Speci men Type: BLOOD SPECIMEN [facility] Address: [address] [place] [address] Performed By: #### 5 7021-8 #### [facility] CLIA [id number] [address] [place] Lymphocytes/100 WBC (Bld) 12.0 % Normal [facility] Comment on above: Order Comment: Speci men Type: BLOOD SPECIMEN [facility] Address: [address] [place] [address] Performed By: #### 5 7021-8 #### [facility] CLIA [id number] [address] [place] [address] [place] MCH (RBC) [Entitic mass] 27.0 pg Normal 26.0-34.0 [facility] Comment on above: Order Comment: Speci men Type: BLOOD SPECIMEN [facility] Address: [address] [place] [address] Performed By: #### 5 7021-8 #### [facility] CLIA [id number] [address] OF [facility] MCHC (RBC) [Mass/Vol] 30.8 g/dL Normal 30.5-36.0 [facility] Comment on above: Order Comment: Speci men Type: BLOOD SPECIMEN [facility] Address: [address] [place] [address] Performed By: #### 5 7021-8 #### [facility] CLIA [id number] [address] MCV (RBC) [Entitic vol] 87.7 fL Normal 80.0-100.0 [facility] Comment on above: Order Comment: Speci men Type: BLOOD SPECIMEN [facility] Address: [address] [place] [address] Performed By: #### 5 7021-8 #### [facility] CLIA [id number] [address] Monocytes (Bld) [#/Vol] 0.60 10*3/uL Normal <0.87 [facility] Comment on above: Order Comment: Speci men Type: BLOOD SPECIMEN [facility] Address: [address] [place] [address] Performed By: #### 5 7021-8 #### [facility] CLIA [id number] [address] Monocytes/100 WBC (Bld) 13.0 % Normal [facility] Comment on above: Order Comment: Speci men Type: BLOOD SPECIMEN [facility] Address: [address] [place] [address] Performed By: #### 5 7021-8 #### [facility] CLIA [id number] [address] [place] Neutrophils (Bld) [#/Vol] 3.49 10*3/uL Normal 1.45-7.50 [facility] Comment on above: Order Comment: Speci men Type: BLOOD SPECIMEN [facility] Address: [address] [place] [address] Performed By: #### 5 7021-8 #### [facility] CLIA [id number] [address] Neutrophils/100 WBC (Bld) 75.0 % Normal [facility] Comment on above: Order Comment: Speci men Type: BLOOD SPECIMEN [facility] Address: [address] [place] [address] Performed By: #### 5 7021-8 #### [facility] CLIA [id number] [address] Nucleated RBC (Bld) [#/Vol] 10*3/uL Normal <0.01 [facility] Comment on above: Order Comment: Speci men Type: BLOOD SPECIMEN [facility] Address: [address] [place] [address] Performed By: #### 5 7021-8 #### [facility] CLIA [id number] [address] [facility] Nucleated RBC/100 WBC (Bld) [Ratio] 0.0 /100 WBC Normal [facility] Comment on above: Order Comment: Speci men Type: BLOOD SPECIMEN [facility] Address: [address] [place] [address] Performed By: #### 5 7021-8 #### [facility] CLIA [id number] [address] [place] Ovalocytes LM Ql (Bld) Few Normal [facility] Comment on above: Order Comment: Speci men Type: BLOOD SPECIMEN [facility] Address: [address] [place] [address] Performed By: #### 5 7021-8 #### [facility] CLIA [id number] [address] [place] Platelet mean volume (Bld) [Entitic vol] 9.8 fL Normal 9.0-12.7 [facility] Comment on above: Order Comment: Speci men Type: BLOOD SPECIMEN [facility] Address: [address] [place] [address] Performed By: #### 5 7021-8 #### [facility] CLIA [id number] [address] Platelets (Bld) [#/Vol] 228 10*3/uL Normal 150-400 [facility] Comment on above: Order Comment: Speci men Type: BLOOD SPECIMEN [facility] Address: [address] [place] [address] Performed By: #### 5 7021-8 #### [facility] CLIA [id number] [address] Platelets Estimate (Bld) [#/Vol] Adequate Normal [facility] Comment on above: Order Comment: Speci men Type: BLOOD SPECIMEN [facility] Address: [address] [place] [address] Performed By: #### 5 7021-8 #### [facility] CLIA [id number] [address] [place] RBC (Bld) [#/Vol] 3.00 10*6/uL Low 4.20-6.00 [facility] Comment on above: Order Comment: Speci men Type: BLOOD SPECIMEN [facility] Address: [address] [place] [address] Performed By: #### 5 7021-8 #### [facility] CLIA [id number] [address] RED CELL MORPH Reviewed: see result s of individual morphologies Normal [facility] Comment on above: Order Comment: Speci men Type: BLOOD SPECIMEN [facility] Address: [address] [place] [address] Performed By: #### 5 7021-8 #### [facility] CLIA [id number] [address] [place] WBC (Bld) [#/Vol] 4.65 10*3/uL Normal 3.70-11.00 [facility] Comment on above: Order Comment: Speci men Type: BLOOD SPECIMEN [facility] Address: [address] [place] [address] Performed By: #### 5 7021-8 #### [facility] CLIA [id number] [address] [place] [address] [place] CNPNon 12-20-2024 CNPN Normal [facility] metabolic 2000 panelon 12-20-2024 Albumin [Mass/Vol] 3.2 g/dL Low 3.9-4.9 [facility] Comment on above: Order Comment: Speci men Type: BLOOD SPECIMEN [facility] Address: [address] [place] [address] Performed By: #### 2 4323-8, , 3039-3 #### [facility] CLIA [id number] [address] [place] [address] [place] ALP [Catalytic activity/Vol] 105 U/L Normal 38-113 [facility] Comment on above: Order Comment: Speci men Type: BLOOD SPECIMEN [facility] Address: [address] [place] [address] Performed By: #### 2 4323-8, , 3039-3 #### [facility] CLIA [id number] [address] [place] [address] [place] ALT [Catalytic activity/Vol] 20 U/L Normal 10-54 [facility] Comment on above: Order Comment: Speci men Type: BLOOD SPECIMEN [facility] Address: [address] [place] [address] Performed By: #### 2 4323-8, 35174-6, 0-3 #### [facility] CLIA [id number] [address] [place] [address] [place] Anion gap [Moles/Vol] 13 mmol/L Normal 8-15 [facility] Comment on above: Order Comment: Speci men Type: BLOOD SPECIMEN [facility] Address: [address] [place] [address] Performed By: #### 2 4323-8, , 3040-3 #### [facility] CLIA [id number] [address] [place] [address] [place] AST [Catalytic activity/Vol] 29 U/L Normal 14-40 [facility] Comment on above: Order Comment: Speci men Type: BLOOD SPECIMEN [facility] Address: [address] [place] [address] Performed By: #### 2 4323-8, , 3039-3 #### [facility] CLIA [id number] [address] [place] [address] [place] Bilirubin [Mass/Vol] 1.0 mg/dL Normal 0.2-1.3 [facility] Comment on above: Order Comment: Speci men Type: BLOOD SPECIMEN [facility] Address: [address] [place] [address] Performed By: #### 2 4323-8, , 3 #### [facility] CLIA [id number] [address] [place] [address] [place] Calcium [Mass/Vol] 8.5 mg/dL Normal 8.5-10.2 [facility] Comment on above: Order Comment: Speci men Type: BLOOD SPECIMEN [facility] Address: [address] [place] [address] Performed By: #### 2 4323-8, , 3 #### [facility] CLIA [id number] [address] [place] [address] [place] Chloride [Moles/Vol] 96 mmol/L Low 98-107 [facility] Comment on above: Order Comment: Speci men Type: BLOOD SPECIMEN [facility] Address: [address] [place] [address] Performed By: #### 2 4323-8, , 3039-3 #### [facility] CLIA [id number] [address] [place] [address] [place] CO2 [Moles/Vol] 22 mmol/L Normal 22-30 [facility] Comment on above: Order Comment: Speci men Type: BLOOD SPECIMEN [facility] [address] [id number] Performed By: #### 2 4323-8, 13917-5, 0-3 #### [facility] CLIA [id number] [address] [place] [address] [place] Creatinine [Mass/Vol] 1.32 mg/dL High 0.73-1.22 [facility] Comment on above: Order Comment: Willam men Type: BLOOD SPECIMEN [facility] Address: [address] [place] [address] Performed By: #### 2 4323-8, 98952-2, 0-3 #### [facility] CLIA [id number] [address] [place] [address] [facility] [place] Creatinine and Glomerular filtration rate.predicted panel (S/P/Bld) 56 mL/min/1.73m??? Low >=60 [facility] Comment on above: Order Comment: Willam robles Type: BLOOD SPECIMEN [facility] Address: [address] [place] [address] Result Comment: Rod mated Glomerular Filtration Rate [...] actual GFR. Performed By: #### 2 4323-8, 14701-2, 0-3 #### [facility] CLIA [id number] [address] [place] [address] [place] Glucose [Mass/Vol] 103 mg/dL High 74-99 [facility] Comment on above: Order Comment: Willam robles Type: BLOOD SPECIMEN [facility] Address: [address] [place] [address] Result Comment: The [place] [employer] (ADA) provides guidance for cutoff [...] Standards of Medical Care in Diabetes 2016, [place] [employer]. Diabetes Care. 2016.39(Suppl 1). Performed By: #### 2 4323-8, , 0-3 #### [facility] CLIA [id number] [address] [place] [address] [place] Potassium [Moles/Vol] 2.8 mmol/L Low 3.7-5.1 [facility] Comment on above: Order Comment: Willam robles Type: BLOOD SPECIMEN [facility] Address: [address] [place] [address] Performed By: #### 2 4323-8, , 3039-3 #### [facility] CLIA [id number] [address] [place] [address] [place] Protein [Mass/Vol] 8.1 g/dL High 6.3-8.0 [facility] Comment on above: Order Comment: Willam robles Type: BLOOD SPECIMEN [facility] Address: [address] [place] [address] Performed By: #### 2 4323-8, , 3039-3 #### [facility] CLIA [id number] [address] [place] [address] [place] Sodium [Moles/Vol] 131 mmol/L Low 136-144 [facility] Comment on above: Order Comment: Willam robles Type: BLOOD SPECIMEN [facility] Address: [address] [place] [address] Performed By: #### 2 4323-8, , 3039-3 #### [facility] CLIA [id number] [address] [place] [address] [place] Urea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 432-8, ####[facility] TEDDYRYAN [id number] [place] [address] [place] Potassium [Moles/Vol] 3.6 mmol/L Low 3.7-5.1 [facility] Comment on above: Order Comment: Speci men Type: BLOOD SPECIMENOrdering Facility: [facility] Address: [address] [place] [address] Performed By: #### 2 432-8, ####[facility] TEDDYRYAN [id number] [place] [address] [place] Protein [Mass/Vol] 6.9 g/dL Normal 6.3-8.0 [facility] Comment on above: Order Comment: Speci men Type: BLOOD SPECIMENOrdering Facility: [facility] Address: [address] [place] [address] Performed By: #### 2 432-8, ####[facility] [facility] [id number] [place] [address] [place] Sodium [Moles/Vol] 129 mmol/L Low 136-144 [facility] Comment on above: Order Comment: Speci men Type: BLOOD SPECIMENOrdering Facility: [facility] Address: [address] [place] [address] Performed By: #### 2 4323-01, ####[facility] [id number] [place] [address] [place] Urea nitrogen [Mass/Vol] 16 mg/dL Normal 9-24 [facility] Comment on above: Order Comment: Speci men Type: BLOOD SPECIMENOrdering Facility: [facility] Address: [address] [place] [address] Performed By: #### 2 4323-8, 27012-2 ####[facility] [id number] [place] [address] [place] MAGNESIUMon 12-15-2024 Magnesium [Mass/Vol] 1.7 mg/dL 1.7 - 2 .3 mg/dL [facility] Magnesium SerPl-mCncon 12-15 Magnesium [Mass/Vol] 1.7 mg/dL Normal 1.7-2.3 [facility] Comment on above: Order Comment: Speci men Type: BLOOD SPECIMENOrdering Facility: [facility] Address: [address] [place] [address] Performed By: #### 2 4323-8, ####[facility] [id number] [place] [address] [place] Magnesium [Mass/Vol]on 12-15 Interpretation and review of laboratory results Normal [facility] No Panel Informationon 12-15 [facility] Prot 24h Ur-mRateon 12-08-19 25 Protein (24H U) [Mass/Time] 0.25 g/24 Hr High <0.15 [facility] Comment on above: Order Comment: Speci men Type: URINE SPECIMENOrdering Facility: [facility] Address: [address] [place] [address] Result Comment: Adul t Proteinuria Categories:<0.15 g/24 hours is considered normal to mildly increased0.15 - 0.50 g/24 hours is considered moderately increased>0.50 g/24 hours is considered severely increasedKDIGO. (2013). KDIGO 2012 Clinical Practice Guideline for the Evaluation and Management of Chronic Kidney Disease. Official Journal of the International Society of Nephrology, 3(1), 1-150. Performed By: #### 2 889-4 ####[facility] LABCLIA [id number] [address] [address] [place] [facility] [id number] [place] [address] [place] Protein (24H U) [Mass/Time]o n 12-07-2024 PERIOD (HRS) 24 hr Normal [facility] Comment on above: Order Comment: Speci men Type: URINE SPECIMENOrdering Facility: [facility] Address: [address] [place] [address] Performed By: #### 2 889-4 ####[facility] LABCLIA [id number] [address] STATES [facility] [id number] [place] [address] [place] Specimen volume (24H U) 2.275 L Normal [facility] Comment on above: Order Comment: Speci men Type: URINE SPECIMENOrdering Facility: [facility] Address: [address] [place] [address] Performed By: #### 2 889-4 ####[facility] LABCLIA [id number] [address] STATES [facility] [id number] [place] [address] [place] CNPNon 12-06-2024 CNPN Normal [facility] CBC W Auto Differential pane l (Bld)on 12-05-2024 Basophils (Bld) [#/Vol] 0.06 10*3/uL [facility]F [facility] Basophils/100 WBC (Bld) 1 % [facility] Differential cell count method Nom (Bld) Auto [facility] Eosinophils (Bld) [#/Vol] 0.04 10*3/uL [facility]F [facility] Eosinophils/100 WBC (Bld) 0.7 % [facility] Erythrocyte distribution width (RBC) [Ratio] 20.1 % High 11.5 - 15.0 % [facility] Hematocrit (Bld) [Volume fraction] 28.8 % Low 39.0 - 51.0 % [facility] Hemoglobin (Bld) [Mass/Vol] 8.6 g/dL Low 13.0 - 17.0 g/dL [facility] Immature granulocytes (Bld) [#/Vol] 0.03 10*3/uL [facility]F [facility] Immature granulocytes/100 WBC (Bld) 0.5 % [facility] Interpretation and review of laboratory results Abnormal [facility] Lymphocytes (Bld) [#/Vol] 0.6 10*3/uL Low [facility] Lymphocytes/100 WBC (Bld) 10.4 % [facility] MCH (RBC) [Entitic mass] 27 pg 26.0 - 34.0 pg [facility] MCHC (RBC) [Mass/Vol] 29.9 g/dL Low 30.5 - 36.0 g/dL [facility] MCV (RBC) [Entitic vol] 90.6 fL 80.0 - 100.0 fL [facility] Monocytes (Bld) [#/Vol] 0.46 10*3/uL [facility] Monocytes/100 WBC (Bld) 8 % [facility] Neutrophils (Bld) [#/Vol] 4.59 10*3/uL [facility] Neutrophils/100 WBC (Bld) 79.4 % [facility] Nucleated RBC (Bld) [#/Vol] [facility] Nucleated RBC/100 WBC (Bld) [Ratio] 0 % /100 WBC [facility] Platelet mean volume (Bld) [Entitic vol] 9.4 fL 9.0 - 12.7 fL [facility] Platelets (Bld) [#/Vol] 238 10*3/uL [facility] RBC (Bld) [#/Vol] 3.18 10*6/uL Low 4.20 - 6.0 0 m/uL [facility] WBC (Bld) [#/Vol] 5.78 10*3/uL [facility] Basophils (Bld) [#/Vol] 0.06 10*3/uL Normal <0.11 [facility] Comment on above: Order Comment: Speci men Type: BLOOD SPECIMENOrdering Facility: [facility] Address: [address] [place] [address] Performed By: #### 5 7021-8 ####[facility] [id number] [address] [place] Basophils/100 WBC (Bld) 1.0 % Normal [facility] Comment on above: Order Comment: Speci men Type: BLOOD SPECIMENOrdering Facility: [facility] Address: [address] [place] [address] Performed By: #### 5 7021-8 ####[facility] [id number] [place] [address] [place] Differential cell count method Nom (Bld) Auto Normal [facility] Comment on above: Order Comment: Speci men Type: BLOOD SPECIMENOrdering Facility: [facility] Address: [address] [place] [address] Performed By: #### 5 7021-8 ####[facility]IANNAA [id number] [place] [address] [place] Eosinophils (Bld) [#/Vol] 0.04 10*3/uL Normal <0.46 [facility] Comment on above: Order Comment: Speci men Type: BLOOD SPECIMENOrdering Facility: [facility] Address: [address] [place] [address] Performed By: #### 5 7021-8 ####[facility] [id number] [place] [address] [place] Eosinophils/100 WBC (Bld) 0.7 % Normal [facility] Comment on above: Order Comment: Speci men Type: BLOOD SPECIMENOrdering Facility: [facility] Address: [address] [place] [address] Performed By: #### 5 7021-8 ####[facility] [id number] [place] [address] [place] Erythrocyte distribution width (RBC) [Ratio] 20.1 % High 11.5-15.0 [facility] Comment on above: Order Comment: Speci men Type: BLOOD SPECIMENOrdering Facility: [facility] Address: [address] [place] [address] Performed By: #### 5 7021-8 ####[facility] NAALIA [id number] [place] [address] [place] Hematocrit (Bld) [Volume fraction] 28.8 % Low 39.0-51.0 [facility] Comment on above: Order Comment: Speci men Type: BLOOD SPECIMENOrdering Facility: [facility] Address: [address] [place] [address] Performed By: #### 5 7021-8 ####[facility] [id number] [place] [address] [place] Hemoglobin (Bld) [Mass/Vol] 8.6 g/dL Low 13.0-17.0 [facility] Comment on above: Order Comment: Speci men Type: BLOOD SPECIMENOrdering Facility: [facility] Address: [address] [place] [address] Performed By: #### 5 7021-8 ####[facility] [id number] [place] [address] [place] Immature granulocytes (Bld) [#/Vol] 0.03 10*3/uL Normal <0.10 [facility] Comment on above: Order Comment: Speci men Type: BLOOD SPECIMENOrdering Facility: [facility] Address: [address] [place] [address] Performed By: #### 5 7021-8 ####[facility] [id number] [place] [address] [place] Immature granulocytes/100 WBC (Bld) 0.5 % Normal [facility] Comment on above: Order Comment: Speci men Type: BLOOD SPECIMENOrdering Facility: [facility] Address: [address] [place] [address] Performed By: #### 5 7021-8 ####[facility]CLI [id number] [place] [address] [place] Lymphocytes (Bld) [#/Vol] 0.60 10*3/uL Low 1.00-4.00 [facility] Comment on above: Order Comment: Speci men Type: BLOOD SPECIMENOrdering Facility: [facility] Address: [address] [place] [address] Performed By: #### 5 7021-8 ####[facility] [id number] [place] [address] [place] Lymphocytes/100 WBC (Bld) 10.4 % Normal [facility] Comment on above: Order Comment: Speci men Type: BLOOD SPECIMENOrdering Facility: [facility] Address: [address] [place] [address] Performed By: #### 5 7021-8 ####[facility] [id number] [place] [address] [place] MCH (RBC) [Entitic mass] 27.0 pg Normal 26.0-34.0 [facility] Comment on above: Order Comment: Speci men Type: BLOOD SPECIMENOrdering Facility: [facility] Address: [address] [place] [address] Performed By: #### 5 7021-8 ####[facility] [id number] [place] [address] [place] MCHC (RBC) [Mass/Vol] 29.9 g/dL Low 30.5-36.0 [facility] Comment on above: Order Comment: Speci men Type: BLOOD SPECIMENOrdering Facility: [facility] Address: [address] [place] [address] Performed By: #### 5 7021-8 ####[facility] [id number] [place] [address] [place] MCV (RBC) [Entitic vol] 90.6 fL Normal 80.0-100.0 [facility] Comment on above: Order Comment: Speci men Type: BLOOD SPECIMENOrdering Facility: [facility] Address: [address] [place] [address] Performed By: #### 5 7021-8 ####[facility] [id number] [place] [address] [place] Monocytes (Bld) [#/Vol] 0.46 10*3/uL Normal <0.87 [facility] Comment on above: Order Comment: Speci men Type: BLOOD SPECIMENOrdering Facility: [facility] Address: [address] [place] [address] Performed By: #### 5 7021-8 ####[facility] [id number] [place] [address] [place] Monocytes/100 WBC (Bld) 8.0 % Normal [facility] Comment on above: Order Comment: Speci men Type: BLOOD SPECIMENOrdering Facility: [facility] Address: [address] [place] [address] Performed By: #### 5 7021-8 ####[facility] [id number] [place] [address] [place] Neutrophils (Bld) [#/Vol] 4.59 10*3/uL Normal 1.45-7.50 [facility] Comment on above: Order Comment: Speci men Type: BLOOD SPECIMENOrdering Facility: [facility] Address: [address] [place] [address] Performed By: #### 5 7021-8 ####[facility] [id number] [place] [address] [place] Neutrophils/100 WBC (Bld) 79.4 % Normal [facility] Comment on above: Order Comment: Speci men Type: BLOOD SPECIMENOrdering Facility: [facility] Address: [address] [place] [address] Performed By: #### 5 7021-8 ####[facility] [id number] [place] [address] [place] Nucleated RBC (Bld) [#/Vol] 10*3/uL Normal <0.01 [facility] Comment on above: Order Comment: Speci men Type: BLOOD SPECIMENOrdering Facility: [facility] Address: [address] [place] [address] Performed By: #### 5 7021-8 ####[facility] [id number] [place] [address] [place] Nucleated RBC/100 WBC (Bld) [Ratio] 0.0 /100 WBC Normal [facility] Comment on above: Order Comment: Speci men Type: BLOOD SPECIMENOrdering Facility: [facility] Address: [address] [place] [address] Performed By: #### 5 7021-8 ####[facility] [id number] [place] [address] [place] Platelet mean volume (Bld) [Entitic vol] 9.4 fL Normal 9.0-12.7 [facility] Comment on above: Order Comment: Speci men Type: BLOOD SPECIMENOrdering Facility: [facility] Address: [address] [place] [address] Performed By: #### 5 7021-8 ####[facility] [id number] [place] [address] [place] Platelets (Bld) [#/Vol] 238 10*3/uL Normal 150-400 [facility] Comment on above: Order Comment: Speci men Type: BLOOD SPECIMENOrdering Facility: [facility] Address: [address] [place] [address] Performed By: #### 5 7021-8 ####[facility] [id number] [place] [address] [place] RBC (Bld) [#/Vol] 3.18 10*6/uL Low 4.20-6.00 [facility] Comment on above: Order Comment: Speci men Type: BLOOD SPECIMENOrdering Facility: [facility] Address: [address] [place] [address] Performed By: #### 5 7021-8 ####[facility] [id number] [place] [address] [place] WBC (Bld) [#/Vol] 5.78 10*3/uL Normal 3.70-11.00 [facility] Comment on above: Order Comment: Speci men Type: BLOOD SPECIMENOrdering Facility: [facility] Address: [address] [place] [address] Performed By: #### 5 7021-8 ####[facility] [id number] [place] [address] [place] CEA SerPl-mCncon 12-05-2024 Carcinoembryonic Ag [Mass/Vol] 33.0 ng/mL High <=2.9 [facility] Comment on above: Order Comment: Speci men Type: BLOOD SPECIMENOrdering Facility: [facility] Address: [address] [place] [address] Result Comment: Carc inoembryonic antigen test is used as an aid in monitoring response to treatment or recurrence in patients with established colorectal, breast, lung, prostatic, pancreatic, and ovarian carcinomas. Clinical correlation is required.The Carcinoembryonic antigen test was performed using the Bryce Aspen Unicel DXI paramagnetic particle chemiluminescent immunoassay method. Results obtained with different assay methods or kits cannot be used interchangeably. Performed By: #### 2 039-6 ####[facility] LABCLIA [id number] [place] [address] [place] CK SerPl-cCncon 12-05-2024 CK [Catalytic activity/Vol] 76 U/L Normal 51-298 [facility] Comment on above: Order Comment: Speci men Type: BLOOD SPECIMENOrdering Facility: [facility] Address: [address] [place] [address] Performed By: #### 1 9123-9, 2777-1, 28361-0 ####[facility] MILLBULLHEADNCLIA [id number] [place] [id number] [place] [address] [place]#### 2157-6 ####[facility] LABCLIA [id number] [address] STATES OF [facility] CK [Catalytic activity/Vol]o n 12-05-2024 Interpretation and review of laboratory results Normal [facility] CNPNon 12-05-2024 CNPN Normal [facility] Comprehensive metabolic 2000 panelOrdered By: Cody Hurtado on 12-05-2024 Albumin [Mass/Vol] 3.1 g/dL Low 3.9 - 4.9 g/dL [facility] ALP [Catalytic activity/Vol] 76 U/L 38 - 113 U/L [facility] ALT [Catalytic activity/Vol] 24 U/L 10 - 54 U/L [facility] Anion gap [Moles/Vol] 13 mmol/L 8 - 15 mmol/L [facility] AST [Catalytic activity/Vol] 33 U/L 14 - 40 U/L [facility] Bilirubin [Mass/Vol] 0.6 mg/dL 0.2 - 1 .3 mg/dL [facility] Calcium [Mass/Vol] 8.9 mg/dL 8.5 - 10. 2 mg/dL [facility] Chloride [Moles/Vol] 98 mmol/L 98 - 10 7 mmol/L [facility] CO2 [Moles/Vol] 23 mmol/L 22 - 30 mmol/L [facility] Creatinine [Mass/Vol] 0.91 mg/dL 0.73 - 1.22 mg/dL [facility] GFR/1.73 sq M.predicted among non-blacks MDRD (S/P/Bld) [Vol rate/Area] 87 mL/min/{1.73_m2} - PINF [facility] Comment on above: Estimated Glomerular Filtration Rate (eGFR) is calculated using the 2021 CKD-EPI creatinine equation. This equation utilizes serum creatinine, sex, and age as parameters. The creatinine assay has traceable calibration to isotope dilution-mass spectrometry. Refer to KDIGO guidelines for clinical interpretation. In patients with unstable renal function, e.g. those with acute kidney injury, the eGFR may not accurately reflect actual GFR. Glucose [Mass/Vol] 97 mg/dL 74 - 99 mg/dL [facility] Comment on above: The [place] Diabete s Association (ADA) provides guidance for [...] Standards of Medical Care in Diabetes 2016, [place] [employer] Association. Diabetes Care. 2016.39(Suppl 1). Potassium [Moles/Vol] 3.8 mmol/L 3.7 - 5.1 mmol/L [facility] Protein [Mass/Vol] 7.8 g/dL 6.3 - 8.0 g/dL [facility] Sodium [Moles/Vol] 134 mmol/L Low 136 - 144 mmol/L [facility] Urea nitrogen [Mass/Vol] 16 mg/dL 9 - 24 mg/dL [facility] Comprehensive metabolic 2000 panelon 12-05-2024 Albumin [Mass/Vol] 3.1 g/dL Low 3.9-4.9 [facility] Comment on above: Order Comment: Speci men Type: BLOOD SPECIMENOrdering Facility: [facility] Address: [address] [place] [address] Performed By: #### 1 9123-9, 2777-1, 14316-5 ####[facility] SYSTEMCARLO [id number] [place] [address] [place]#### 2157-6 ####[facility] LABCLIA [id number] [address] [address] [place] ALP [Catalytic activity/Vol] 76 U/L Normal 38-113 [facility] Comment on above: Order Comment: Speci men Type: BLOOD SPECIMENOrdering Facility: [facility] Address: [address] [place] [address] Performed By: #### 1 9123-9, 2776-, 63437-1 ####[facility] MILLTOWNCLIA [id number] [place] [address] [place]#### 2157-6 ####[facility] LABCLIA [id number] [place] [id number] [place] ALT [Catalytic activity/Vol] 24 U/L Normal 10-54 [facility] Comment on above: Order Comment: Speci men Type: BLOOD SPECIMENOrdering Facility: [facility] Address: [address] [place], [place] [address] Performed By: #### 1 23-9, 2776-06, 53222-4 ####[facility] MILLTOWNCLIA [id number] [place] [address] [place]#### 2157-6 ####[facility] LABCLIA [id number] [address] [address] [place] Anion gap [Moles/Vol] 13 mmol/L Normal 8-15 [facility] Comment on above: Order Comment: Speci men Type: BLOOD SPECIMENOrdering Facility: [facility] Address: [address] [place] [address] Performed By: #### 1 9123-9, 2776-06, 09746-8 ####[facility] MILLTOWNCLIA [id number] [place] [address] [place]#### 2157-6 ####[facility] LABCLIA [id number] [address] [address] [place] AST [Catalytic activity/Vol] 33 U/L Normal 14-40 [facility] Comment on above: Order Comment: Speci men Type: BLOOD SPECIMENOrdering Facility: [facility] Address: [address] [place] [address] Performed By: #### 1 23-9, 2776-06, 07937-6 ####[facility] MILLTOWNCLIA [id number] [place] [address] [place]#### 2157-6 ####[facility] LABCLIA [id number] [place] [address] [place] Bilirubin [Mass/Vol] 0.6 mg/dL Normal 0.2-1.3 [facility] Comment on above: Order Comment: Speci men Type: BLOOD SPECIMENOrdering Facility: [facility] Address: [address] [place] [address] Performed By: #### 1 9, 2776-06, ####[facility] MILLTOWNCLIA [id number] [place] [address] [place]#### 2157-6 ####[facility] LABCLIA [id number] [place] [address] [place] Calcium [Mass/Vol] 8.9 mg/dL Normal 8.5-10.2 [facility] Comment on above: Order Comment: Speci men Type: BLOOD SPECIMENOrdering Facility: [facility] Address: [address] [place] [id number] Performed By: #### 1 23-9, 2776-06, 02241-7 ####[facility] MILLTOWNCLIA [id number] [place] [address] [place]#### 2157-6 ####[facility] LABCLIA [id number] [address] [address] [place] Chloride [Moles/Vol] 98 mmol/L Normal 98-107 [facility] Comment on above: Order Comment: Speci men Type: BLOOD SPECIMENOrdering Facility: [facility] Address: [address] [place] [id number] Performed By: #### 1 23-9, 2776-06, 59102-3 ####[facility] MILLTOWNCLIA [id number] [place] [address] [place]#### 2157-6 ####[facility] LABCLIA [id number] [place] [address] [place] CO2 [Moles/Vol] 23 mmol/L Normal 22-30 [facility] Comment on above: Order Comment: Speci men Type: BLOOD SPECIMENOrdering Facility: [facility] Address: [address] [place] [address] Performed By: #### 1 239, 2776-06, ####[facility] MILLTOWNCLIA [id number] [place] [address] [place]#### 2157-6 ####[facility] LABCLIA [id number] [place] [address] [place] Creatinine [Mass/Vol] 0.91 mg/dL Normal 0.73-1.22 [facility] Comment on above: Order Comment: Speci men Type: BLOOD SPECIMENOrdering Facility: [facility] Address: [address] [place] [address] Performed By: #### 1 9123-9, 2776-06, 62877-1 ####[facility] MILLTOWNCLIA [id number] [place] [address] [place]#### 2157-6 ####[facility] LABCLIA [id number] [place] [id number] [place] Creatinine and Glomerular filtration rate.predicted panel (S/P/Bld) 87 mL/min/1.73m??? Normal >=60 [facility] Comment on above: Order Comment: Willam robles Type: BLOOD SPECIMENOrdering Facility: [facility] Address: [address] [place] [address] Result Comment: Rod mated Glomerular Filtration Rate [...] actual GFR. Performed By: #### 1 9123-9, 2777-1, 78327-6 ####[facility] [id number] [place] [address] [place]#### 2157-6 ####[facility] LABCLIA [id number] [place] [id number] [place] Glucose [Mass/Vol] 97 mg/dL Normal 74-99 [facility] Comment on above: Order Comment: Willam robles Type: BLOOD SPECIMENOrdering Facility: [facility] Address: [address] [place] [address] Result Comment: The [place] Diabetes Association (ADA) provides guidance for cutoff [...] Standards of Medical Care in Diabetes 2016, [place] Diabetes Association. Diabetes Care. 2016.39(Suppl 1). Performed By: #### 1 9123-9, 2776-06, ####[facility] MILLTOWNCLIA [id number] [place] [address] [place]#### 2157-6 ####[facility] LABCLIA [id number] [address] [address] [place] Potassium [Moles/Vol] 3.8 mmol/L Normal 3.7-5.1 [facility] Comment on above: Order Comment: Speci men Type: BLOOD SPECIMENOrdering Facility: [facility] Address: [address] [place] [address] Performed By: #### 1 9123-9, 2776-06, ####[facility] [id number] [place] [address] [place]#### 2157-6 ####[facility] LABCLIA [id number] [address] [address] [place] Protein [Mass/Vol] 7.8 g/dL Normal 6.3-8.0 [facility] Comment on above: Order Comment: Speci men Type: BLOOD SPECIMENOrdering Facility: [facility] Address: [address] [place] [address] Performed By: #### 1 9123-9, 2776-06, ####[facility] MILLWNCLIA [id number] [place] [address] [place]#### 2157-6 ####[facility] LABCLIA [id number] [place] [id number] [place] Sodium [Moles/Vol] 134 mmol/L Low 136-144 [facility] Comment on above: Order Comment: Speci men Type: BLOOD SPECIMENOrdering Facility: [facility] Address: [address] [facility] [address] Performed By: #### 1 9123-9, 2776-06, 20930-9 ####[facility] [id number] [place] [address] [place]#### 2157-6 ####[facility] LABCLIA [id number] [place] [address] [place] Urea nitrogen [Mass/Vol] 16 mg/dL Normal 9-24 [facility] Comment on above: Order Comment: Speci men Type: BLOOD SPECIMENOrdering Facility: [facility] Address: [address] [place] [place] [address] Performed By: #### 1 9123-9, 2776-06, ####[facility] [id number] [address] [place]#### 2157-6 ####[facility] LABCLIA [id number] [place] [id number] [place] Laboratory - Chemistry and C hemistry - challengeon 12-05-2024 CK [Catalytic activity/Vol] 76 U/L 51 - 298 U/L [facility] Laboratory - Chemistry and C hemistry - challengeOrdered By: Mady Cabello on 12-05-2024 Phosphate [Mass/Vol] 2.2 mg/dL Low 2.7 - 4 .8 mg/dL [facility] MAGNESIUMon 12-05-2024 Magnesium [Mass/Vol] 1.4 mg/dL Low 1.7 - 2 .3 mg/dL [facility] Magnesium SerPl-mCncon 12-05 Magnesium [Mass/Vol] 1.4 mg/dL Low 1.7-2.3 [facility] Comment on above: Order Comment: Speci men Type: BLOOD SPECIMENOrdering Facility: [facility] Address: [address] [place] [address] Performed By: #### 1 9123-9, 2776-06, ####[facility] [id number] [place] [address] [place]#### 2157-6 ####[facility] LABCLIA [id number] [place] [id number] [place] No Panel Informationon 12-05 Interpretation and review of laboratory results Abnormal [facility] Phosphate SerPl-mCncon 12-05 Phosphate [Mass/Vol] 2.2 mg/dL Low 2.7-4.8 [facility] Comment on above: Order Comment: Speci men Type: BLOOD SPECIMENOrdering Facility: [facility] Address: [address] [place] [address] Performed By: #### 1 9123-9, 2777-1, 15600-7 ####[facility] [id number] [address] [place]#### 2157-6 ####[facility] LABCLIA [id number] [address] [place] [facility] Phosphate [Mass/Vol]Ordered By: Mady Cabello on 12-05-2024 Interpretation and review of laboratory results Abnormal [facility] UA DIP, URINE (POC)on 2024 BILIRUBIN UA (POCT) Negative Negative [facility] CLARITY UA (POCT) Clear [facility] COLOR UA (POCT) Dark yellow [facility] GLUCOSE UA (POCT) Negative Negative mg/dL [facility] Hemoglobin Ql (U) Negative Negative [facility] Interpretation and review of laboratory results Abnormal [facility] KETONE UA (POCT) Negative Negative mg/dL [facility] LEUKOCYTES UA (POCT) Negative Negative [facility] NITRITE UA (POCT) Negative Negative [facility] PH UA (POCT) 6 4.5 - 8.0 [facility] Protein Ql (U) 100 mg/dL Abnormal Negative [facility] SPECIFIC GRAVITY UA (POCT) >=1.030 1.005 - 1.030 [facility] UROBILINOGEN UA (POCT) 2 Abnormal Normal E.U./dL [facility] Location:[facility], [address], [place], [address] [facility] POINT OF CARE [facility] CBC W Auto Differential pane l (Bld)on 11-30-2024 Basophils (Bld) [#/Vol] 0.05 10*3/uL [facility] Basophils/100 WBC (Bld) 0.6 % [facility] Differential cell count method Nom (Bld) Auto [facility] Eosinophils (Bld) [#/Vol] 0.1 10*3/uL [facility] Eosinophils/100 WBC (Bld) 1.1 % [facility] Erythrocyte distribution width (RBC) [Ratio] 20.1 % High 11.5 - 15.0 % [facility] Hematocrit (Bld) [Volume fraction] 29.5 % Low 39.0 - 51.0 % [facility] Hemoglobin (Bld) [Mass/Vol] 8.8 g/dL Low 13.0 - 17.0 g/dL [facility] Immature granulocytes (Bld) [#/Vol] 0.04 10*3/uL [facility] Immature granulocytes/100 WBC (Bld) 0.4 % [facility] Interpretation and review of laboratory results Abnormal [facility] Lymphocytes (Bld) [#/Vol] 0.82 10*3/uL Low [facility] Lymphocytes/100 WBC (Bld) 9.1 % [facility] MCH (RBC) [Entitic mass] 27.2 pg 26.0 - 34.0 pg [facility] MCHC (RBC) [Mass/Vol] 29.8 g/dL Low 30.5 - 36.0 g/dL [facility] MCV (RBC) [Entitic vol] 91.3 fL 80.0 - 100.0 fL [facility] Monocytes (Bld) [#/Vol] 0.64 10*3/uL [facility] Monocytes/100 WBC (Bld) 7.1 % [facility] Neutrophils (Bld) [#/Vol] 7.33 10*3/uL [facility] Neutrophils/100 WBC (Bld) 81.7 % [facility] Nucleated RBC (Bld) [#/Vol] NINF [facility] Nucleated RBC/100 WBC (Bld) [Ratio] 0 % /100 WBC [facility] Platelet mean volume (Bld) [Entitic vol] 9.1 fL 9.0 - 12.7 fL [facility] Platelets (Bld) [#/Vol] 226 10*3/uL [facility] RBC (Bld) [#/Vol] 3.23 10*6/uL Low 4.20 - 6.0 0 m/uL [facility] WBC (Bld) [#/Vol] 8.98 10*3/uL [facility] Basophils (Bld) [#/Vol] 0.05 10*3/uL Normal <0.11 [facility] Comment on above: Order Comment: Speci men Type: BLOOD SPECIMENOrdering Facility: [facility] Address: [address] [place] [address] Performed By: #### 5 7021-8 ####[facility] [id number] [place] [address] [place] Basophils/100 WBC (Bld) 0.6 % Normal [facility] Comment on above: Order Comment: Speci men Type: BLOOD SPECIMENOrdering Facility: [facility] Address: [address] [place] [address] Performed By: #### 5 7021-8 ####[facility] [id number] [place] [address] [place] Differential cell count method Nom (Bld) Auto Normal [facility] Comment on above: Order Comment: Speci men Type: BLOOD SPECIMENOrdering Facility: [facility] Address: [address] [place] [address] Performed By: #### 5 7021-8 ####[facility] [id number] [place] [address] [place] Eosinophils (Bld) [#/Vol] 0.10 10*3/uL Normal <0.46 [facility] Comment on above: Order Comment: Speci men Type: BLOOD SPECIMENOrdering Facility: [facility] Address: [address] [place] [address] Performed By: #### 5 7021-8 ####[facility] TEDDYGANESH [id number] [place] [address] [place] Eosinophils/100 WBC (Bld) 1.1 % Normal [facility] Comment on above: Order Comment: Speci men Type: BLOOD SPECIMENOrdering Facility: [facility] Address: [address] [place] [address] Performed By: #### 5 7021-8 ####[facility] [id number] [place] [address] [place] Erythrocyte distribution width (RBC) [Ratio] 20.1 % High 11.5-15.0 [facility] Comment on above: Order Comment: Speci men Type: BLOOD SPECIMENOrdering Facility: [facility] Address: [address] [place] [address] Performed By: #### 5 7021-8 ####[facility]ANCBECKYA [id number] [place] [address] [place] Hematocrit (Bld) [Volume fraction] 29.5 % Low 39.0-51.0 [facility] Comment on above: Order Comment: Speci men Type: BLOOD SPECIMENOrdering Facility: [facility] Address: [address] [place] [address] Performed By: #### 5 7021-8 ####[facility] [id number] [place] [address] [place] Hemoglobin (Bld) [Mass/Vol] 8.8 g/dL Low 13.0-17.0 [facility] Comment on above: Order Comment: Speci men Type: BLOOD SPECIMENOrdering Facility: [facility] Address: [address] [place] [address] Performed By: #### 5 7021-8 ####[facility] ERWNCLIA [id number] [place] [address] [place] Immature granulocytes (Bld) [#/Vol] 0.04 10*3/uL Normal <0.10 [facility] Comment on above: Order Comment: Speci men Type: BLOOD SPECIMENOrdering Facility: [facility] Address: [address] [place] [address] Performed By: #### 5 7021-8 ####[facility] [id number] [place] [address] [place] Immature granulocytes/100 WBC (Bld) 0.4 % Normal [facility] Comment on above: Order Comment: Speci men Type: BLOOD SPECIMENOrdering Facility: [facility] Address: [address] [place] [address] Performed By: #### 5 7021-8 ####[facility] [id number] [place] [address] [place] Lymphocytes (Bld) [#/Vol] 0.82 10*3/uL Low 1.00-4.00 [facility] Comment on above: Order Comment: Speci men Type: BLOOD SPECIMENOrdering Facility: [facility] Address: [address] [place] [address] Performed By: #### 5 7021-8 ####[facility] [id number] [place] [address] [place] Lymphocytes/100 WBC (Bld) 9.1 % Normal [facility] Comment on above: Order Comment: Speci men Type: BLOOD SPECIMENOrdering Facility: [facility] Address: [address] [place] [address] Performed By: #### 5 7021-8 ####[facility] [id number] [place] [address] [place] MCH (RBC) [Entitic mass] 27.2 pg Normal 26.0-34.0 [facility] Comment on above: Order Comment: Speci men Type: BLOOD SPECIMENOrdering Facility: [facility] Address: [address] [place] [address] Performed By: #### 5 7021-8 ####[facility] [id number] [place] [address] [place] MCHC (RBC) [Mass/Vol] 29.8 g/dL Low 30.5-36.0 [facility] Comment on above: Order Comment: Speci men Type: BLOOD SPECIMENOrdering Facility: [facility] Address: [address] [place], [place] [address] Performed By: #### 5 7021-8 ####[facility] [id number] [place] [address] [place] MCV (RBC) [Entitic vol] 91.3 fL Normal 80.0-100.0 [facility] Comment on above: Order Comment: Speci men Type: BLOOD SPECIMENOrdering Facility: [facility] Address: [address] [place] [address] Performed By: #### 5 7021-8 ####[facility] [id number] [place] [address] [place] Monocytes (Bld) [#/Vol] 0.64 10*3/uL Normal <0.87 [facility] Comment on above: Order Comment: Speci men Type: BLOOD SPECIMENOrdering Facility: [facility] Address: [address] [place] [address] Performed By: #### 5 7021-8 ####[facility] [id number] [place] [address] [place] Monocytes/100 WBC (Bld) 7.1 % Normal [facility] Comment on above: Order Comment: Speci men Type: BLOOD SPECIMENOrdering Facility: [facility] Address: [address] [place] [address] Performed By: #### 5 7021-8 ####[facility] [id number] [place] [address] [place] Neutrophils (Bld) [#/Vol] 7.33 10*3/uL Normal 1.45-7.50 [facility] Comment on above: Order Comment: Speci men Type: BLOOD SPECIMENOrdering Facility: [facility] Address: [address] [place] [address] Performed By: #### 5 7021-8 ####[facility] [id number] [place] [address] [place] Neutrophils/100 WBC (Bld) 81.7 % Normal [facility] Comment on above: Order Comment: Speci men Type: BLOOD SPECIMENOrdering Facility: [facility] Address: [address] [place] [address] Performed By: #### 5 7021-8 ####[facility] [id number] [place] [address] [place] Nucleated RBC (Bld) [#/Vol] 10*3/uL Normal <0.01 [facility] Comment on above: Order Comment: Speci men Type: BLOOD SPECIMENOrdering Facility: [facility] Address: [address] [place] [address] Performed By: #### 5 7021-8 ####[facility] [id number] [place] [address] [place] Nucleated RBC/100 WBC (Bld) [Ratio] 0.0 /100 WBC Normal [facility] Comment on above: Order Comment: Speci men Type: BLOOD SPECIMENOrdering Facility: [facility] Address: [address] [place] [address] Performed By: #### 5 7021-8 ####[facility] [id number] [place] [address] [place] Platelet mean volume (Bld) [Entitic vol] 9.1 fL Normal 9.0-12.7 [facility] Comment on above: Order Comment: Speci men Type: BLOOD SPECIMENOrdering Facility: [facility] Address: [address] [place] [address] Performed By: #### 5 7021-8 ####[facility] TEDDYMARIOLAA [id number] [place] [address] [place] Platelets (Bld) [#/Vol] 226 10*3/uL Normal 150-400 [facility] Comment on above: Order Comment: Speci men Type: BLOOD SPECIMENOrdering Facility: [facility] Address: [address] [place] [address] Performed By: #### 5 7021-8 ####[facility]IANNABECKYA [id number] [place] [address] [place] RBC (Bld) [#/Vol] 3.23 10*6/uL Low 4.20-6.00 [facility] Comment on above: Order Comment: Speci men Type: BLOOD SPECIMENOrdering Facility: [facility] Address: [address] [place] [address] Performed By: #### 5 7021-8 ####[facility]NABECKYA [id number] [place] [address] [place] WBC (Bld) [#/Vol] 8.98 10*3/uL Normal 3.70-11.00 [facility] Comment on above: Order Comment: Speci men Type: BLOOD SPECIMENOrdering Facility: [facility] Address: [address] [place] [address] Performed By: #### 5 7021-8 ####[facility]CL[facility] [id number] [place] [id number] [place] CEA SerPl-mCncon 11-30-2024 Carcinoembryonic Ag [Mass/Vol] 36.0 ng/mL High <=2.9 [facility] Comment on above: Order Comment: Speci men Type: BLOOD SPECIMENOrdering Facility: [facility] Address: [address] [place] [address] Result Comment: Carc inoembryonic antigen test is used as an aid in monitoring response to treatment or recurrence in patients with established colorectal, breast, lung, prostatic, pancreatic, and ovarian carcinomas. Clinical correlation is required.The Carcinoembryonic antigen test was performed using the Bryce Aspen Unicel DXI paramagnetic particle chemiluminescent immunoassay method. Results obtained with different assay methods or kits cannot be used interchangeably. Performed By: #### 2 039-6 ####[facility] LABCLIA [id number] [place] [address] [place] Comprehensive metabolic 2000 panelOrdered By: Cody Hurtado on 11-30-2024 Albumin [Mass/Vol] 3.1 g/dL Low 3.9 - 4.9 g/dL [facility] ALP [Catalytic activity/Vol] 78 U/L 38 - 113 U/L [facility] ALT [Catalytic activity/Vol] 26 U/L 10 - 54 U/L [facility] Anion gap [Moles/Vol] 12 mmol/L 8 - 15 mmol/L [facility] AST [Catalytic activity/Vol] 37 U/L 14 - 40 U/L [facility] Bilirubin [Mass/Vol] 1.3 mg/dL 0.2 - 1 .3 mg/dL [facility] Calcium [Mass/Vol] 9.2 mg/dL 8.5 - 10. 2 mg/dL [facility] Chloride [Moles/Vol] 98 mmol/L 98 - 10 7 mmol/L [facility] CO2 [Moles/Vol] 22 mmol/L 22 - 30 mmol/L [facility] Creatinine [Mass/Vol] 0.9 mg/dL 0.73 - 1.22 mg/dL [facility] GFR/1.73 sq M.predicted among non-blacks MDRD (S/P/Bld) [Vol rate/Area] 88 mL/min/{1.73_m2} - PINF [facility] Comment on above: Estimated Glomerular Filtration Rate [...] 157 mg/dL High 74 - 99 mg/dL [facility] Comment on above: The [place] Diabete s Association (ADA) provides guidance for [...] Standards of Medical Care in Diabetes 2016, [place] [employer]. Diabetes Care. 2016.39(Suppl 1). Interpretation and review of laboratory results Abnormal [facility] Potassium [Moles/Vol] 4.1 mmol/L 3.7 - 5.1 mmol/L [facility] Protein [Mass/Vol] 8.1 g/dL High 6.3 - 8.0 g/dL [facility] Sodium [Moles/Vol] 132 mmol/L Low 136 - 144 mmol/L [facility] Urea nitrogen [Mass/Vol] 20 mg/dL 9 - 24 mg/dL [facility] Comprehensive metabolic 2000 panelon 11-30-2024 Albumin [Mass/Vol] 3.1 g/dL Low 3.9-4.9 [facility] Comment on above: Order Comment: Speci men Type: BLOOD SPECIMENOrdering Facility: [facility] Address: [address] [place], [place] [address] [address] Performed By: #### 2 4323-8 ####[facility] [id number] [place] [address] [place] ALP [Catalytic activity/Vol] 78 U/L Normal 38-113 [facility] Comment on above: Order Comment: Speci men Type: BLOOD SPECIMENOrdering Facility: [facility] Address: [address] [place] [address] Performed By: #### 2 4323-8 ####[facility] [id number] [place] [address] [place] ALT [Catalytic activity/Vol] 26 U/L Normal 10-54 [facility] Comment on above: Order Comment: Speci men Type: BLOOD SPECIMENOrdering Facility: [facility] Address: [address] [place] [address] Performed By: #### 2 4323-8 ####[facility] [id number] [place] [address] [place] Anion gap [Moles/Vol] 12 mmol/L Normal 8-15 [facility] Comment on above: Order Comment: Speci men Type: BLOOD SPECIMENOrdering Facility: [facility] Address: [address] [place] [address] Performed By: #### 2 4323-8 ####[facility] [id number] [place] [address] [place] AST [Catalytic activity/Vol] 37 U/L Normal 14-40 [facility] Comment on above: Order Comment: Speci men Type: BLOOD SPECIMENOrdering Facility: [facility] Address: [address] [place] [address] Performed By: #### 2 4323-8 ####[facility] [id number] [place] [address] [place] Bilirubin [Mass/Vol] 1.3 mg/dL Normal 0.2-1.3 [facility] Comment on above: Order Comment: Speci men Type: BLOOD SPECIMENOrdering Facility: [facility] Address: [address] [place] [address] Performed By: #### 2 4323-8 ####[facility] MILLTOWNCLIA [id number] [place] [address] [place] Calcium [Mass/Vol] 9.2 mg/dL Normal 8.5-10.2 [facility] Comment on above: Order Comment: Speci men Type: BLOOD SPECIMENOrdering Facility: [facility] Address: [address] [place] [address] Performed By: #### 2 4323-8 ####[facility] MILLTOWNCLIA [id number] [place] [address] [place] Chloride [Moles/Vol] 98 mmol/L Normal 98-107 [facility] Comment on above: Order Comment: Speci men Type: BLOOD SPECIMENOrdering Facility: [facility] Address: [address] [place] [address] Performed By: #### 2 4323-8 ####[facility] ERWNCLIA [id number] [place] [address] [place] CO2 [Moles/Vol] 22 mmol/L Normal 22-30 [facility] Comment on above: Order Comment: Speci men Type: BLOOD SPECIMENOrdering Facility: [facility] Address: [address] [place] [address] Performed By: #### 2 4323-8 ####[facility] MILLTOWNCLIA [id number] [place] [address] [place] Creatinine [Mass/Vol] 0.90 mg/dL Normal 0.73-1.22 [facility] Comment on above: Order Comment: Speci men Type: BLOOD SPECIMENOrdering Facility: [facility] Address: [address] [place] [address] Performed By: #### 2 4323-8 ####[facility] MILLWNCLIA [id number] [place] [address] [place] Creatinine and Glomerular filtration rate.predicted panel (S/P/Bld) 88 mL/min/1.73m??? Normal >=60 [facility] Comment on above: Order Comment: Willam robles Type: BLOOD SPECIMENOrdering Facility: [facility] Address: [address] [place] [address] Result Comment: Rod mated Glomerular Filtration Rate [...] actual GFR. Performed By: #### 2 4323-8 ####[facility] [id number] [place] [address] [place] Glucose [Mass/Vol] 157 mg/dL High 74-99 [facility] Comment on above: Order Comment: Willam robles Type: BLOOD SPECIMENOrdering Facility: [facility] Address: [address] [place] [address] Result Comment: The [place] Diabetes Association (ADA) provides guidance for cutoff [...] Standards of Medical Care in Diabetes 2016, [place] [employer]. Diabetes Care. 2016.39(Suppl 1). Performed By: #### 2 4323-8 ####[facility] [id number] [place] [address] [place] Potassium [Moles/Vol] 4.1 mmol/L Normal 3.7-5.1 [facility] Comment on above: Order Comment: Speci men Type: BLOOD SPECIMENOrdering Facility: [facility] Address: [address] [place] [address] Performed By: #### 2 4323-8 ####[facility] ERWNCLIA [id number] [place] [address] [place] Protein [Mass/Vol] 8.1 g/dL High 6.3-8.0 [facility] Comment on above: Order Comment: Speci men Type: BLOOD SPECIMENOrdering Facility: [facility] Address: [address] [place] [address] Performed By: #### 2 4323-8 ####[facility] [id number] [place] [address] [place] Sodium [Moles/Vol] 132 mmol/L Low 136-144 [facility] Comment on above: Order Comment: Speci men Type: BLOOD SPECIMENOrdering Facility: [facility] Address: [address] [place] [address] Performed By: #### 2 4323-8 ####[facility] [id number] [place] [address] [place] Urea nitrogen [Mass/Vol] 20 mg/dL Normal 9-24 [facility] Comment on above: Order Comment: Speci men Type: BLOOD SPECIMENOrdering Facility: [facility] Address: [address] [place] [address] Performed By: #### 2 4323-8 ####[facility] [id number] [place] [address] [place] UA DIP, URINE (POC)on 2024 BILIRUBIN UA (POCT) Small Abnormal Negative [facility] CLARITY UA (POCT) Cloudy [facility] COLOR UA (POCT) Red [facility] GLUCOSE UA (POCT) Negative Negative mg/dL [facility] Hemoglobin Ql (U) Negative Negative [facility] Interpretation and review of laboratory results Abnormal [facility] KETONE UA (POCT) Trace Negative mg/dL [facility] LEUKOCYTES UA (POCT) Negative Negative [facility] NITRITE UA (POCT) Negative Negative [facility] PH UA (POCT) 5.5 4.5 - 8.0 [facility] Protein Ql (U) 100 mg/dL Abnormal Negative [facility] SPECIFIC GRAVITY UA (POCT) >=1.030 1.005 - 1.030 [facility] UROBILINOGEN UA (POCT) 2 Abnormal Normal E.U./dL [facility] Location:[facility], [address], [place], [place], [id number] [place] [address] POINT OF CARE [facility] BRCon 11-23-[address] [facility] Comment on above: Result Comment: [id number] OP RC TRANSFUSED 11/24/24 0816 [id number] OP RC TRANSFUSED 11/24/24 1017 Performed By: #### L 501.080 #### [facility] [address] [place], [address] CBC W Auto Differential pane l (Bld)on 11-23-2024 Basophils (Bld) [#/Vol] 0.06 10*3/uL [facility] Basophils/100 WBC (Bld) 0.9 % [facility] Differential cell count method Nom (Bld) Auto [facility] Eosinophils (Bld) [#/Vol] 0.16 10*3/uL [facility] Eosinophils/100 WBC (Bld) 2.3 % [facility] Erythrocyte distribution width (RBC) [Ratio] 22.8 % High 11.5 - 15.0 % [facility] Hematocrit (Bld) [Volume fraction] 22.8 % Low 39.0 - 51.0 % [facility] Hemoglobin (Bld) [Mass/Vol] 6.8 g/dL Low 13.0 - 17.0 g/dL [facility] Immature granulocytes (Bld) [#/Vol] 0.04 10*3/uL [facility] Immature granulocytes/100 WBC (Bld) 0.6 % [facility] Interpretation and review of laboratory results Abnormal [facility] Lymphocytes (Bld) [#/Vol] 0.9 10*3/uL Low [facility] Lymphocytes/100 WBC (Bld) 13.1 % [facility] MCH (RBC) [Entitic mass] 27.5 pg 26.0 - 34.0 pg [facility] MCHC (RBC) [Mass/Vol] 29.8 g/dL Low 30.5 - 36.0 g/dL [facility] MCV (RBC) [Entitic vol] 92.3 fL 80.0 - 100.0 fL [facility] Monocytes (Bld) [#/Vol] 0.79 10*3/uL NINF [facility] Monocytes/100 WBC (Bld) 11.5 % [facility] Neutrophils (Bld) [#/Vol] 4.92 10*3/uL [facility] Neutrophils/100 WBC (Bld) 71.6 % [facility] Nucleated RBC (Bld) [#/Vol] NINF [facility] Nucleated RBC/100 WBC (Bld) [Ratio] 0 % /100 WBC [facility] Platelet mean volume (Bld) [Entitic vol] 9.7 fL 9.0 - 12.7 fL [facility] Platelets (Bld) [#/Vol] 250 10*3/uL [facility] RBC (Bld) [#/Vol] 2.47 10*6/uL Low 4.20 - 6.0 0 m/uL [facility] WBC (Bld) [#/Vol] 6.87 10*3/uL [facility] Basophils (Bld) [#/Vol] 0.06 10*3/uL Normal <0.11 [facility] Comment on above: Order Comment: Speci men Type: BLOOD SPECIMENOrdering Facility: [facility] Address: [address] [place] [address] Performed By: #### 5 7021-8 ####[facility] CLAU ESPINALBULLHEADBANG [id number] [place] [id number] [place] Basophils/100 WBC (Bld) 0.9 % Normal [facility] Comment on above: Order Comment: Speci men Type: BLOOD SPECIMENOrdering Facility: [facility] Address: [address] [place] [address] Performed By: #### 5 7021-8 ####[facility] [id number] [place] [address] [place] Differential cell count method Nom (Bld) Auto Normal [facility] Comment on above: Order Comment: Speci men Type: BLOOD SPECIMENOrdering Facility: [facility] Address: [address] [place] [address] Performed By: #### 5 7021-8 ####[facility] [id number] [place] [address] [place] Eosinophils (Bld) [#/Vol] 0.16 10*3/uL Normal <0.46 [facility] Comment on above: Order Comment: Speci men Type: BLOOD SPECIMENOrdering Facility: [facility] Address: [address] [place] [address] Performed By: #### 5 7021-8 ####[facility] [id number] [place] [address] [place] Eosinophils/100 WBC (Bld) 2.3 % Normal [facility] Comment on above: Order Comment: Speci men Type: BLOOD SPECIMENOrdering Facility: [facility] Address: [address] [place] [address] Performed By: #### 5 7021-8 ####[facility] [id number] [place] [address] [place] Erythrocyte distribution width (RBC) [Ratio] 22.8 % High 11.5-15.0 [facility] Comment on above: Order Comment: Speci men Type: BLOOD SPECIMENOrdering Facility: [facility] Address: [address] [place] [address] Performed By: #### 5 7021-8 ####[facility] [id number] [place] [address] [place] Hematocrit (Bld) [Volume fraction] 22.8 % Low 39.0-51.0 [facility] Comment on above: Order Comment: Speci men Type: BLOOD SPECIMENOrdering Facility: [facility] Address: [address] [place] [address] Performed By: #### 5 7021-8 ####[facility]ID[facility] [id number] [place] [address] [place] Hemoglobin (Bld) [Mass/Vol] 6.8 g/dL Low 13.0-17.0 [facility] Comment on above: Order Comment: Speci men Type: BLOOD SPECIMENOrdering Facility: [facility] Address: [address] [place] [address] Performed By: #### 5 7021-8 ####[facility] FLORIDAGIANNAMckenna [id number] [place] [address] [place] Immature granulocytes (Bld) [#/Vol] 0.04 10*3/uL Normal <0.10 [facility] Comment on above: Order Comment: Speci men Type: BLOOD SPECIMENOrdering Facility: [facility] Address: [address] [place] [address] Performed By: #### 5 7021-8 ####[facility] [id number] [place] [address] [place] Immature granulocytes/100 WBC (Bld) 0.6 % Normal [facility] Comment on above: Order Comment: Speci men Type: BLOOD SPECIMENOrdering Facility: [facility] Address: [address] [place] [address] Performed By: #### 5 7021-8 ####[facility] [id number] [place] [address] [place] Lymphocytes (Bld) [#/Vol] 0.90 10*3/uL Low 1.00-4.00 [facility] Comment on above: Order Comment: Speci men Type: BLOOD SPECIMENOrdering Facility: [facility] Address: [address] [place] [address] Performed By: #### 5 7021-8 ####[facility] [id number] [place] [address] [place] Lymphocytes/100 WBC (Bld) 13.1 % Normal [facility] Comment on above: Order Comment: Speci men Type: BLOOD SPECIMENOrdering Facility: [facility] Address: [address] [place] [address] Performed By: #### 5 7021-8 ####[facility] [id number] [place] [address] [place] MCH (RBC) [Entitic mass] 27.5 pg Normal 26.0-34.0 [facility] Comment on above: Order Comment: Speci men Type: BLOOD SPECIMENOrdering Facility: [facility] Address: [address] [place] [address] Performed By: #### 5 7021-8 ####[facility] [id number] [place] [address] [place] MCHC (RBC) [Mass/Vol] 29.8 g/dL Low 30.5-36.0 [facility] Comment on above: Order Comment: Speci men Type: BLOOD SPECIMENOrdering Facility: [facility] Address: [address] [place] [address] Performed By: #### 5 7021-8 ####[facility] [id number] [place] [address] [place] MCV (RBC) [Entitic vol] 92.3 fL Normal 80.0-100.0 [facility] Comment on above: Order Comment: Speci men Type: BLOOD SPECIMENOrdering Facility: [facility] Address: [address] [place] [address] Performed By: #### 5 7021-8 ####[facility] MILLTOWNCLIA [id number] [place] [address] [place] Monocytes (Bld) [#/Vol] 0.79 10*3/uL Normal <0.87 [facility] Comment on above: Order Comment: Speci men Type: BLOOD SPECIMENOrdering Facility: [facility] Address: [address] [place] [address] Performed By: #### 5 7021-8 ####[facility] MILLTOWNCLIA [id number] [place] [address] [place] Monocytes/100 WBC (Bld) 11.5 % Normal [facility] Comment on above: Order Comment: Speci men Type: BLOOD SPECIMENOrdering Facility: [facility] Address: [address] [place] [address] Performed By: #### 5 7021-8 ####[facility]CL[facility] [id number] [place] [address] [place] Neutrophils (Bld) [#/Vol] 4.92 10*3/uL Normal 1.45-7.50 [facility] Comment on above: Order Comment: Speci men Type: BLOOD SPECIMENOrdering Facility: [facility] Address: [address] [place] [address] Performed By: #### 5 7021-8 ####[facility] MILLTOWNCLIA [id number] [place] [address] [place] Neutrophils/100 WBC (Bld) 71.6 % Normal [facility] Comment on above: Order Comment: Speci men Type: BLOOD SPECIMENOrdering Facility: [facility] Address: [address] [place] [address] Performed By: #### 5 7021-8 ####[facility] MILLWNCLIA [id number] [place] [address] [place] Nucleated RBC (Bld) [#/Vol] 10*3/uL Normal <0.01 [facility] Comment on above: Order Comment: Speci men Type: BLOOD SPECIMENOrdering Facility: [facility] Address: [address] [place] [address] Performed By: #### 5 7021-8 ####[facility]AGIANNACARLO [id number] [place] [address] [place] Nucleated RBC/100 WBC (Bld) [Ratio] 0.0 /100 WBC Normal [facility] Comment on above: Order Comment: Speci men Type: BLOOD SPECIMENOrdering Facility: [facility] Address: [address] [place] [address] Performed By: #### 5 7021-8 ####[facility]AGIANNAMckenna [id number] [place] [address] [place] Platelet mean volume (Bld) [Entitic vol] 9.7 fL Normal 9.0-12.7 [facility] Comment on above: Order Comment: Speci men Type: BLOOD SPECIMENOrdering Facility: [facility] Address: [address] [place] [address] Performed By: #### 5 7021-8 ####[facility] FLORIDAFALGUNIA [id number] [place] [address] [place] Platelets (Bld) [#/Vol] 250 10*3/uL Normal 150-400 [facility] Comment on above: Order Comment: Speci men Type: BLOOD SPECIMENOrdering Facility: [facility] Address: [address] [place] [address] Performed By: #### 5 7021-8 ####[facility]CL[facility] [id number] [place] [address] [place] RBC (Bld) [#/Vol] 2.47 10*6/uL Low 4.20-6.00 [facility] Comment on above: Order Comment: Speci men Type: BLOOD SPECIMENOrdering Facility: [facility] Address: [address] [place] [address] Performed By: #### 5 7021-8 ####[facility] [id number] [place] [address] [place] WBC (Bld) [#/Vol] 6.87 10*3/uL Normal 3.70-11.00 [facility] Comment on above: Order Comment: Speci men Type: BLOOD SPECIMENOrdering Facility: [facility] Address: [address] [place] [address] Performed By: #### 5 7021-8 ####[facility] [id number] [place] [address] [place] CEA SerPl-mCncon 11-23-2024 Carcinoembryonic Ag [Mass/Vol] 47.0 ng/mL High <=2.9 [facility] Comment on above: Order Comment: Speci men Type: BLOOD SPECIMENOrdering Facility: [facility] Address: [address] [place] [address] Result Comment: Carc inoembryonic antigen test is used as an aid in monitoring response to treatment or recurrence in patients with established colorectal, breast, lung, prostatic, pancreatic, and ovarian carcinomas. Clinical correlation is required.The Carcinoembryonic antigen test was performed using the [employer] Unicel DXI paramagnetic particle chemiluminescent immunoassay method. Results obtained with different assay methods or kits cannot be used interchangeably. Performed By: #### 2 039-6 ####[facility] LABCLIA [id number] [place] [address] [place] CNPNon 11-23-2024 CNPN Normal [facility] Comprehensive metabolic 2000 panelOrdered By: Mady Cabello on 11-23-2024 Albumin [Mass/Vol] 3.1 g/dL Low 3.9 - 4.9 g/dL [facility] ALP [Catalytic activity/Vol] 77 U/L 38 - 113 U/L [facility] ALT [Catalytic activity/Vol] 43 U/L 10 - 54 U/L [facility] Anion gap [Moles/Vol] 10 mmol/L 8 - 15 mmol/L [facility] AST [Catalytic activity/Vol] 46 U/L High 14 - 40 U/L [facility] Bilirubin [Mass/Vol] 0.9 mg/dL 0.2 - 1 .3 mg/dL [facility] Calcium [Mass/Vol] 8.8 mg/dL 8.5 - 10. 2 mg/dL [facility] Chloride [Moles/Vol] 100 mmol/L 98 - 10 7 mmol/L [facility] CO2 [Moles/Vol] 23 mmol/L 22 - 30 mmol/L [facility] Creatinine [Mass/Vol] 0.95 mg/dL 0.73 - 1.22 mg/dL [facility] GFR/1.73 sq M.predicted among non-blacks MDRD (S/P/Bld) [Vol rate/Area] 82 mL/min/{1.73_m2} - PINF [facility] Comment on above: Estimated Glomerular Filtration Rate [...] 119 mg/dL High 74 - 99 mg/dL [facility] Comment on above: The [place] Diabete s Association (ADA) provides guidance for [...] Standards of Medical Care in Diabetes 2016, [place] [employer]. Diabetes Care. 2016.39(Suppl 1). Interpretation and review of laboratory results Abnormal [facility] Potassium [Moles/Vol] 4.3 mmol/L 3.7 - 5.1 mmol/L [facility] Protein [Mass/Vol] 7.6 g/dL 6.3 - 8.0 g/dL [facility] Sodium [Moles/Vol] 133 mmol/L Low 136 - 144 mmol/L [facility] Urea nitrogen [Mass/Vol] 19 mg/dL 9 - 24 mg/dL [facility] Comprehensive metabolic 2000 panelon 11-23-2024 Albumin [Mass/Vol] 3.1 g/dL Low 3.9-4.9 [facility] Comment on above: Order Comment: Speci men Type: BLOOD SPECIMENOrdering Facility: [facility] Address: [address] [place] [address] Performed By: #### 2 4323-8, ####[facility] [id number] [place] [address] [place] ALP [Catalytic activity/Vol] 77 U/L Normal 38-113 [facility] Comment on above: Order Comment: Speci men Type: BLOOD SPECIMENOrdering Facility: [facility] Address: [address] [place] [address] Performed By: #### 2 4323-8, ####[facility] [id number] [place] [address] [place] ALT [Catalytic activity/Vol] 43 U/L Normal 10-54 [facility] Comment on above: Order Comment: Speci men Type: BLOOD SPECIMENOrdering Facility: [facility] Address: [address] [place] [address] Performed By: #### 2 4323-8, ####[facility] [id number] [place] [address] [place] Anion gap [Moles/Vol] 10 mmol/L Normal 8-15 [facility] Comment on above: Order Comment: Speci men Type: BLOOD SPECIMENOrdering Facility: [facility] Address: [address] [place] [address] Performed By: #### 2 4323-8, 50836-0 ####[facility] JENNIEGIANNACARLO [id number] [place] [address] [place] AST [Catalytic activity/Vol] 46 U/L High 14-40 [facility] Comment on above: Order Comment: Speci men Type: BLOOD SPECIMENOrdering Facility: [facility] Address: [address] [place] [address] Performed By: #### 2 4323-8, 55362-7 ####[facility] TEDDYRYAN [id number] [place] [address] [place] Bilirubin [Mass/Vol] 0.9 mg/dL Normal 0.2-1.3 [facility] Comment on above: Order Comment: Speci men Type: BLOOD SPECIMENOrdering Facility: [facility] Address: [address] [place] [address] Performed By: #### 2 4323-8, 32010-4 ####[facility] TEDDYRYAN [id number] [place] [address] [place] Calcium [Mass/Vol] 8.8 mg/dL Normal 8.5-10.2 [facility] Comment on above: Order Comment: Speci men Type: BLOOD SPECIMENOrdering Facility: [facility] Address: [address] [place] [address] Performed By: #### 2 4323-8, ####[facility] TEDDYCAROLLIA [id number] [place] [address] [place] Chloride [Moles/Vol] 100 mmol/L Normal 98-107 [facility] Comment on above: Order Comment: Speci men Type: BLOOD SPECIMENOrdering Facility: [facility] Address: [address] [place] [address] Performed By: #### 2 4323-8, 31827-2 ####[facility] XIMENAWNCLIA [id number] [place] [address] [place] CO2 [Moles/Vol] 23 mmol/L Normal 22-30 [facility] Comment on above: Order Comment: Speci men Type: BLOOD SPECIMENOrdering Facility: [facility] Address: [address] [place] [address] Performed By: #### 2 4323-8, ####[facility] [id number] [place] [address] [place] Creatinine [Mass/Vol] 0.95 mg/dL Normal 0.73-1.22 [facility] Comment on above: Order Comment: Speci men Type: BLOOD SPECIMENOrdering Facility: [facility] Address: [address] [place] [address] Performed By: #### 2 4323-8, ####[facility]CL[facility] [id number] [address] STATES OF [facility] Creatinine and Glomerular filtration rate.predicted panel (S/P/Bld) 82 mL/min/1.73m??? Normal >=60 [facility] Comment on above: Order Comment: Speci men Type: BLOOD SPECIMENOrdering Facility: [facility] Address: [address] [place] [address] Result Comment: Rod mated Glomerular Filtration Rate [...] actual GFR. Performed By: #### 2 4323-8, 09766-6 ####[facility] ERWNCLIA [id number] [place] [address] [place] Glucose [Mass/Vol] 119 mg/dL High 74-99 [facility] Comment on above: Order Comment: Speci men Type: BLOOD SPECIMENOrdering Facility: [facility] Address: [address] [place], [place] [id number] Result Comment: The [place] Diabetes Association (ADA) provides guidance for cutoff [...] Standards of Medical Care in Diabetes 2016, [place] [employer]. Diabetes Care. 2016.39(Suppl 1). Performed By: #### 2 4323-8, ####[facility] MILLTOWNCLIA [id number] [place] [address] [place] Potassium [Moles/Vol] 4.3 mmol/L Normal 3.7-5.1 [facility] Comment on above: Order Comment: Speci men Type: BLOOD SPECIMENOrdering Facility: [facility] Address: [address] [place], [place] [address] Performed By: #### 2 4323-8, ####[facility] MILLTOWNCLIA [id number] [place] [address] [place] Protein [Mass/Vol] 7.6 g/dL Normal 6.3-8.0 [facility] Comment on above: Order Comment: Speci men Type: BLOOD SPECIMENOrdering Facility: [facility] Address: [address] [place], [place] [address] Performed By: #### 2 4323-8, ####[facility] MILLTOWNCLIA [id number] [place] [address] [place] Sodium [Moles/Vol] 133 mmol/L Low 136-144 [facility] Comment on above: Order Comment: Speci men Type: BLOOD SPECIMENOrdering Facility: [facility] Address: [address] [place], [place] [address] Performed By: #### 2 4323-8, 69112-1 ####[facility] [id number] [place] [address] [place] Urea nitrogen [Mass/Vol] 19 mg/dL Normal 9-24 [facility] Comment on above: Order Comment: Speci men Type: BLOOD SPECIMENOrdering Facility: [facility] Address: [address] [place] [address] Performed By: #### 2 4323-8, 45794-7 ####[facility] [id number] [place] [address] [place] FERRITINon 11-23-2024 Ferritin [Mass/Vol] 767 ng/mL High 30.3 - 5 65.7 ng/mL [facility] Ferritin SerPl-mCncon 2024 Ferritin [Mass/Vol] 767.0 ng/mL High 30.3-565.7 [facility] Comment on above: Order Comment: Speci men Type: BLOOD SPECIMENOrdering Facility: [facility] Address: [address] [place] [address] Performed By: #### 2 276-4, 98931-3 ####[facility] LABCLIA [id number] [place] [address] [place] Ferritin [Mass/Vol]on 2024 Interpretation and review of laboratory results Abnormal [facility] Iron and Iron binding capaci ty panelon 11-23-2024 Interpretation and review of laboratory results Abnormal [facility] Iron [Mass/Vol] 21 ug/dL Low 41 - 186 ug/dL [facility] Iron binding capacity [Mass/Vol] 192 ug/dL Low 232 - 386 ug/dL [facility] Iron/TIBC [Molar ratio] 10.9 % Low 15.0 - 57.0 % [facility] Iron [Mass/Vol] 21 ug/dL Low 41-186 [facility] Comment on above: Order Comment: Speci men Type: BLOOD SPECIMENOrdering Facility: [facility] Address: [address] [place] [address] Performed By: #### 2 276-4, 83255-3 ####[facility] LABIA [id number] [place] [address] [place] Iron binding capacity [Mass/Vol] 192 ug/dL Low 232-386 [facility] Comment on above: Order Comment: Speci men Type: BLOOD SPECIMENOrdering Facility: [facility] Address: [address] [place] [address] Performed By: #### 2 276-4, 98430-8 ####[facility] [id number] [place] [address] [place] Iron/TIBC [Molar ratio] 10.9 % Low 15.0-57.0 [facility] Comment on above: Order Comment: Speci men Type: BLOOD SPECIMENOrdering Facility: [facility] Address: [address] [place] [address] Performed By: #### 2 276-4, 42730-9 ####[facility] [id number] [place] [id number] [place] MAGNESIUMon 11-23-2024 Magnesium [Mass/Vol] 1.8 mg/dL 1.7 - 2 .3 mg/dL [facility] Magnesium SerPl-mCncon 11-23 Magnesium [Mass/Vol] 1.8 mg/dL Normal 1.7-2.3 [facility] Comment on above: Order Comment: Speci men Type: BLOOD SPECIMENOrdering Facility: [facility] Address: [address] [place] [address] Performed By: #### 2 4323-8, 38897-4 ####[facility] MILLTOWNCLIA [id number] [place] [id number] [facility] Magnesium [Mass/Vol]on 11-23 Interpretation and review of laboratory results Normal [facility] No Panel InformationOrdered By: Mady Cabello on 11-23-2024 [facility] Type AND Screenon 11-23-2024 ABO and Rh group Nom (Bld) Blood group O Rh(D) positive Normal [facility] Comment on above: Order Comment: N05/2 02/2025 @0745NYA Performed By: #### L 501.080 #### [facility] [address] [place], [place], [id number] CNPNon 11-14-2024 CNPN Normal [facility] CBC W Auto Differential pane l (Bld)on 11-09-2024 Basophils (Bld) [#/Vol] 0.03 10*3/uL [facility] Basophils/100 WBC (Bld) 0.4 % [facility] Differential cell count method Nom (Bld) Auto [facility] Eosinophils (Bld) [#/Vol] 0.06 10*3/uL [facility] Eosinophils/100 WBC (Bld) 0.9 % [facility] Erythrocyte distribution width (RBC) [Ratio] 23.5 % High 11.5 - 15.0 % [facility] Hematocrit (Bld) [Volume fraction] 25.1 % Low 39.0 - 51.0 % [facility] Hemoglobin (Bld) [Mass/Vol] 7.7 g/dL Low 13.0 - 17.0 g/dL [facility] Immature granulocytes (Bld) [#/Vol] 0.22 10*3/uL High [facility]F [facility] Immature granulocytes/100 WBC (Bld) 3.3 % [facility] Interpretation and review of laboratory results Abnormal [facility] Lymphocytes (Bld) [#/Vol] 0.82 10*3/uL Low [facility] Lymphocytes/100 WBC (Bld) 12.2 % [facility] MCH (RBC) [Entitic mass] 28.5 pg 26.0 - 34.0 pg [facility] MCHC (RBC) [Mass/Vol] 30.7 g/dL 30.5 - 36.0 g/dL [facility] MCV (RBC) [Entitic vol] 93 fL 80.0 - 100.0 fL [facility] Monocytes (Bld) [#/Vol] 0.79 10*3/uL [facility]F [facility] Monocytes/100 WBC (Bld) 11.7 % [facility] Neutrophils (Bld) [#/Vol] 4.81 10*3/uL [facility] Neutrophils/100 WBC (Bld) 71.5 % [facility] Nucleated RBC (Bld) [#/Vol] 0.04 10*3/uL High NINF [facility] Nucleated RBC/100 WBC (Bld) [Ratio] 0.6 % /100 WBC [facility] Platelet mean volume (Bld) [Entitic vol] 9 fL 9.0 - 12.7 fL [facility] Platelets (Bld) [#/Vol] 160 10*3/uL [facility] RBC (Bld) [#/Vol] 2.7 10*6/uL Low 4.20 - 6.0 0 m/uL [facility] WBC (Bld) [#/Vol] 6.73 10*3/uL [facility] Basophils (Bld) [#/Vol] 0.03 10*3/uL Normal <0.11 [facility] Comment on above: Order Comment: Speci men Type: BLOOD SPECIMENOrdering Facility: [facility] Address: [address] [place] [address] Performed By: #### 5 7021-8 ####[facility] [id number] [place] [address] [place] Basophils/100 WBC (Bld) 0.4 % Normal [facility] Comment on above: Order Comment: Speci men Type: BLOOD SPECIMENOrdering Facility: [facility] Address: [address] [place] [address] Performed By: #### 5 7021-8 ####[facility] [id number] [place] [address] [place] Differential cell count method Nom (Bld) Auto Normal [facility] Comment on above: Order Comment: Speci men Type: BLOOD SPECIMENOrdering Facility: [facility] Address: [address] [place] [address] Performed By: #### 5 7021-8 ####[facility] [id number] [place] [address] [place] Eosinophils (Bld) [#/Vol] 0.06 10*3/uL Normal <0.46 [facility] Comment on above: Order Comment: Speci men Type: BLOOD SPECIMENOrdering Facility: [facility] Address: [address] [place] [address] Performed By: #### 5 7021-8 ####[facility] [id number] [place] [address] [place] Eosinophils/100 WBC (Bld) 0.9 % Normal [facility] Comment on above: Order Comment: Speci men Type: BLOOD SPECIMENOrdering Facility: [facility] Address: [address] [place] [address] Performed By: #### 5 7021-8 ####[facility] [id number] [place] [address] [place] Erythrocyte distribution width (RBC) [Ratio] 23.5 % High 11.5-15.0 [facility] Comment on above: Order Comment: Speci men Type: BLOOD SPECIMENOrdering Facility: [facility] Address: [address] [place] [address] Performed By: #### 5 7021-8 ####[facility] [id number] [place] [address] [place] Hematocrit (Bld) [Volume fraction] 25.1 % Low 39.0-51.0 [facility] Comment on above: Order Comment: Speci men Type: BLOOD SPECIMENOrdering Facility: [facility] Address: [address] [place] [address] Performed By: #### 5 7021-8 ####[facility] JENNIENCLIA [id number] [place] [address] [place] Hemoglobin (Bld) [Mass/Vol] 7.7 g/dL Low 13.0-17.0 [facility] Comment on above: Order Comment: Speci men Type: BLOOD SPECIMENOrdering Facility: [facility] Address: [address] [place] [address] Performed By: #### 5 7021-8 ####[facility]CL[facility] [id number] [place] [address] [place] Immature granulocytes (Bld) [#/Vol] 0.22 10*3/uL High <0.10 [facility] Comment on above: Order Comment: Speci men Type: BLOOD SPECIMENOrdering Facility: [facility] Address: [address] [place] [address] Performed By: #### 5 7021-8 ####[facility]IDAGIANNAL[facility] [id number] [place] [address] [place] Immature granulocytes/100 WBC (Bld) 3.3 % Normal [facility] Comment on above: Order Comment: Speci men Type: BLOOD SPECIMENOrdering Facility: [facility] Address: [address] [place] [address] Performed By: #### 5 7021-8 ####[facility] TEDDYWGIANNALIA [id number] [place] [address] [place] Lymphocytes (Bld) [#/Vol] 0.82 10*3/uL Low 1.00-4.00 [facility] Comment on above: Order Comment: Speci men Type: BLOOD SPECIMENOrdering Facility: [facility] Address: [address] [place] [address] Performed By: #### 5 7021-8 ####[facility] [id number] [place] [address] [place] Lymphocytes/100 WBC (Bld) 12.2 % Normal [facility] Comment on above: Order Comment: Speci men Type: BLOOD SPECIMENOrdering Facility: [facility] Address: [address] [place] [address] Performed By: #### 5 7021-8 ####[facility] [id number] [place] [address] [place] MCH (RBC) [Entitic mass] 28.5 pg Normal 26.0-34.0 [facility] Comment on above: Order Comment: Speci men Type: BLOOD SPECIMENOrdering Facility: [facility] Address: [address] [place] [address] Performed By: #### 5 7021-8 ####[facility] [id number] [place] [address] [place] MCHC (RBC) [Mass/Vol] 30.7 g/dL Normal 30.5-36.0 [facility] Comment on above: Order Comment: Speci men Type: BLOOD SPECIMENOrdering Facility: [facility] Address: [address] [place] [address] Performed By: #### 5 7021-8 ####[facility] [id number] [place] [address] [place] MCV (RBC) [Entitic vol] 93.0 fL Normal 80.0-100.0 [facility] Comment on above: Order Comment: Speci men Type: BLOOD SPECIMENOrdering Facility: [facility] Address: [address] [place] [address] Performed By: #### 5 7021-8 ####[facility] [id number] [place] [address] [place] Monocytes (Bld) [#/Vol] 0.79 10*3/uL Normal <0.87 [facility] Comment on above: Order Comment: Speci men Type: BLOOD SPECIMENOrdering Facility: [facility] Address: [address] [place] [address] Performed By: #### 5 7021-8 ####[facility] [id number] [place] [address] [place] Monocytes/100 WBC (Bld) 11.7 % Normal [facility] Comment on above: Order Comment: Speci men Type: BLOOD SPECIMENOrdering Facility: [facility] Address: [address] [place] [address] Performed By: #### 5 7021-8 ####[facility] [id number] [place] [address] [place] Neutrophils (Bld) [#/Vol] 4.81 10*3/uL Normal 1.45-7.50 [facility] Comment on above: Order Comment: Speci men Type: BLOOD SPECIMENOrdering Facility: [facility] Address: [address] [place] [address] Performed By: #### 5 7021-8 ####[facility] [id number] [place] [address] [place] Neutrophils/100 WBC (Bld) 71.5 % Normal [facility] Comment on above: Order Comment: Speci men Type: BLOOD SPECIMENOrdering Facility: [facility] Address: [address] [place] [address] Performed By: #### 5 7021-8 ####[facility] [id number] [place] [address] [place] Nucleated RBC (Bld) [#/Vol] 0.04 10*3/uL High <0.01 [facility] Comment on above: Order Comment: Speci men Type: BLOOD SPECIMENOrdering Facility: [facility] Address: [address] [place] [address] Performed By: #### 5 7021-8 ####[facility] TEDDYGANESH [id number] [place] [address] [place] Nucleated RBC/100 WBC (Bld) [Ratio] 0.6 /100 WBC Normal [facility] Comment on above: Order Comment: Speci men Type: BLOOD SPECIMENOrdering Facility: [facility] Address: [address] [place] [address] Performed By: #### 5 7021-8 ####[facility] [id number] [place] [address] [place] Platelet mean volume (Bld) [Entitic vol] 9.0 fL Normal 9.0-12.7 [facility] Comment on above: Order Comment: Speci men Type: BLOOD SPECIMENOrdering Facility: [facility] Address: [address] [place] [address] Performed By: #### 5 7021-8 ####[facility] [id number] [place] [address] [place] Platelets (Bld) [#/Vol] 160 10*3/uL Normal 150-400 [facility] Comment on above: Order Comment: Speci men Type: BLOOD SPECIMENOrdering Facility: [facility] Address: [address] [place] [address] Performed By: #### 5 7021-8 ####[facility]NAL[facility] [id number] [place] [address] [place] RBC (Bld) [#/Vol] 2.70 10*6/uL Low 4.20-6.00 [facility] Comment on above: Order Comment: Speci men Type: BLOOD SPECIMENOrdering Facility: [facility] Address: [address] [place] [address] Performed By: #### 5 7021-8 ####[facility] ERWNCLIA [id number] [place] [address] [place] WBC (Bld) [#/Vol] 6.73 10*3/uL Normal 3.70-11.00 [facility] Comment on above: Order Comment: Speci men Type: BLOOD SPECIMENOrdering Facility: [facility] Address: [address] [place] [address] Performed By: #### 5 7021-8 ####[facility] [id number] [place] [address] [place] CEA SerPl-nc 11-09-2024 Carcinoembryonic Ag [Mass/Vol] 55.1 ng/mL High <=2.9 [facility] Comment on above: Order Comment: Speci men Type: BLOOD SPECIMENOrdering Facility: [facility] Address: [address] [place] [address] Result Comment: Carc inoembryonic antigen test is [...] used interchangeably. Performed By: #### 2 039-6 ####[facility] LABCLIA [id number] [place] [address] [place] CNOVSPon 11-09-2024 CNOVSP Normal [facility] CNPNon 11-09-2024 CNPN Normal [facility] Comprehensive metabolic 2000 panelon 11-09-2024 Albumin [Mass/Vol] 3.4 g/dL Low 3.9 - 4.9 g/dL [facility] ALP [Catalytic activity/Vol] 117 U/L High 38 - 113 U/L [facility] ALT With P-5'-P [Catalytic activity/Vol] 9 U/L Low 10 - 54 U/L [facility] Anion gap [Moles/Vol] 12 mmol/L 8 - 15 mmol/L [facility] AST With P-5'-P [Catalytic activity/Vol] 22 U/L 14 - 40 U/L [facility] Bilirubin [Mass/Vol] 0.6 mg/dL 0.2 - 1 .3 mg/dL [facility] Calcium [Mass/Vol] 8.8 mg/dL 8.5 - 10. 2 mg/dL [facility] Chloride [Moles/Vol] 100 mmol/L 98 - 10 7 mmol/L [facility] CO2 [Moles/Vol] 25 mmol/L 22 - 30 mmol/L [facility] Creatinine [Mass/Vol] 0.92 mg/dL 0.73 - 1.22 mg/dL [facility] GFR/1.73 sq M.predicted among non-blacks MDRD (S/P/Bld) [Vol rate/Area] 86 mL/min/{1.73_m2} - PINF [facility] Comment on above: Estimated Glomerular Filtration Rate [...] 181 mg/dL High 74 - 99 mg/dL [facility] Comment on above: The [place] Di[employer] s Association (ADA) provides guidance for [...] Standards of Medical Care in Diabetes 2016, [place] [employer]. Diabetes Care. 2016.39(Suppl 1). Interpretation and review of laboratory results Abnormal [facility] Potassium [Moles/Vol] 4 mmol/L 3.7 - 5.1 mmol/L [facility] Protein [Mass/Vol] 7.6 g/dL 6.3 - 8.0 g/dL [facility] Sodium [Moles/Vol] 137 mmol/L 136 - 144 mmol/L [facility] Urea nitrogen [Mass/Vol] 14 mg/dL 9 - 24 mg/dL [facility] Albumin [Mass/Vol] 3.4 g/dL Low 3.9-4.9 [facility] Comment on above: Order Comment: Speci men Type: BLOOD SPECIMENOrdering Facility: [facility] Address: [address] [place] [address] Performed By: #### 1 9123-9, 92849-0 ####[facility] LABCLIA [id number] [facility] [place] [address] [place] ALP [Catalytic activity/Vol] 117 U/L High 38-113 [facility] Comment on above: Order Comment: Speci men Type: BLOOD SPECIMENOrdering Facility: [facility] Address: [address] [place] [address] Performed By: #### 1 9123-9, 90381-2 ####[facility] LABCLIA [id number] [place] [address] [place] ALT With P-5'-P [Catalytic activity/Vol] 9 U/L Low 10-54 [facility] Comment on above: Order Comment: Speci men Type: BLOOD SPECIMENOrdering Facility: [facility] Address: [address] [place] [address] Performed By: #### 1 9123-9, 93787-9 ####[facility] LABCLIA [id number] [facility] [address] [place] Anion gap [Moles/Vol] 12 mmol/L Normal 8-15 [facility] Comment on above: Order Comment: Speci men Type: BLOOD SPECIMENOrdering Facility: [facility] Address: [address] [place] [address] Performed By: #### 1 9123-9, 19660-8 ####[facility] LABCLIA [id number] [facility] [place] [address] [place] AST With P-5'-P [Catalytic activity/Vol] 22 U/L Normal 14-40 [facility] Comment on above: Order Comment: Speci men Type: BLOOD SPECIMENOrdering Facility: [facility] Address: [address] [place] [address] Performed By: #### 1 9123-9, 30481-3 ####[facility] LABCLIA [id number] [facility] [place] [address] [place] Bilirubin [Mass/Vol] 0.6 mg/dL Normal 0.2-1.3 [facility] Comment on above: Order Comment: Speci men Type: BLOOD SPECIMENOrdering Facility: [facility] Address: [address] [place] [address] Performed By: #### 1 9123-9, ####[facility] LABCLIA [id number] [facility] [place] [address] [place] Calcium [Mass/Vol] 8.8 mg/dL Normal 8.5-10.2 [facility] Comment on above: Order Comment: Speci men Type: BLOOD SPECIMENOrdering Facility: [facility] Address: [address] [place] [address] Performed By: #### 1 9123-9, 76334-5 ####[facility] LABCLIA [id number] [place] [address] [place] Chloride [Moles/Vol] 100 mmol/L Normal 98-107 [facility] Comment on above: Order Comment: Speci men Type: BLOOD SPECIMENOrdering Facility: [facility] Address: [address] [place], [place] [address] Performed By: #### 1 9123-9, 36705-1 ####[facility] LABCLIA [id number] [place] [address] [place] CO2 [Moles/Vol] 25 mmol/L Normal 22-30 [facility] Comment on above: Order Comment: Speci men Type: BLOOD SPECIMENOrdering Facility: [facility] Address: [address] [place] [address] [place] [address] Performed By: #### 1 9123-9, 81254-1 ####[facility] LABCLIA [id number] [place] [address] [place] [facility] Creatinine [Mass/Vol] 0.92 mg/dL Normal 0.73-1.22 [facility] Comment on above: Order Comment: Willam robles Type: BLOOD SPECIMENOrdering Facility: [facility] Address: [address] [place] [address] Performed By: #### 1 9123-9, 41525-4 ####[facility] LABCLIA [id number] [place] [address] [facility] Creatinine and Glomerular filtration rate.predicted panel (S/P/Bld) 86 mL/min/1.73m??? Normal >=60 [facility] Comment on above: Order Comment: Willam robles Type: BLOOD SPECIMENOrdering Facility: [facility] Address: [address] [place] [address] Result Comment: Rod mated Glomerular Filtration Rate [...] actual GFR. Performed By: #### 1 9123-9, 63383-2 ####[facility] LABCLIA [id number] [place] [address] [place] Glucose [Mass/Vol] 181 mg/dL High 74-99 [facility] Comment on above: Order Comment: Willam robles Type: BLOOD SPECIMENOrdering Facility: [facility] Address: [address] [place] [address] Result Comment: The [place] Diabetes Association (ADA) provides guidance for cutoff [...] Standards of Medical Care in Diabetes 2016, [place] [employer]. Diabetes Care. 2016.39(Suppl 1). Performed By: #### 1 9123-9, ####[facility] LABCLIA [id number] [place] [address] [place] Potassium [Moles/Vol] 4.0 mmol/L Normal 3.7-5.1 [facility] Comment on above: Order Comment: Willam robles Type: BLOOD SPECIMENOrdering Facility: [facility] Address: [address] [place] [address] Performed By: #### 1 9123-02, ####[facility] LABCLIA [id number] [place] [address] [place] Protein [Mass/Vol] 7.6 g/dL Normal 6.3-8.0 [facility] Comment on above: Order Comment: Willam robles Type: BLOOD SPECIMENOrdering Facility: [facility] Address: [address] [place] [address] Performed By: #### 1 91239, ####[facility] LABCLIA [id number] [place] [address] [place] Sodium [Moles/Vol] 137 mmol/L Normal 136-144 [facility] Comment on above: Order Comment: Willam robles Type: BLOOD SPECIMENOrdering Facility: [facility] Address: [address] [place] [address] Performed By: #### 1 91239, ####[facility] LABCLIA [id number] [place] [address] [place] Urea nitrogen [Mass/Vol] 14 mg/dL Normal 9-24 [facility] [facility] Comment on above: Order Comment: Speci men Type: BLOOD SPECIMENOrdering Facility: [facility] Address: [address] [place] [address] Performed By: #### 1 9123-9, 96647-8 ####[facility] LABCLIA [id number] [place] [address] [place] MAGNESIUMon 11-09-2024 Magnesium [Mass/Vol] 1.7 mg/dL 1.7 - 2 .3 mg/dL [facility] Magnesium SerPl-mCncon 11-09 Magnesium [Mass/Vol] 1.7 mg/dL Normal 1.7-2.3 [facility] Comment on above: Order Comment: Speci men Type: BLOOD SPECIMENOrdering Facility: [facility] Address: [address] [place] [address] Performed By: #### 1 9123-9, 77146-9 ####[facility] LABCLIA [id number] [place] [address] [place] Magnesium [Mass/Vol]on 11-09 Interpretation and review of laboratory results Normal [facility] No Panel Informationon 11-09 [facility] UA DIP, URINE (POC)on 2024 BILIRUBIN UA (POCT) Negative Negative [facility] CLARITY UA (POCT) Clear [facility] COLOR UA (POCT) Yellow [facility] GLUCOSE UA (POCT) Negative Negative mg/dL [facility] Hemoglobin Ql (U) Negative Negative [facility] KETONE UA (POCT) Negative Negative mg/dL [facility] LEUKOCYTES UA (POCT) Negative Negative [facility] NITRITE UA (POCT) Negative Negative [facility] PH UA (POCT) 6 4.5 - 8.0 [facility] Protein Ql (U) Negative Negative mg/dL [facility] SPECIFIC GRAVITY UA (POCT) 1.015 1.005 - 1.030 [facility] UROBILINOGEN UA (POCT) 1 Normal E.U./dL [facility] Location:[facility], [address] , [place], [place], [id number] [place] [address] POINT OF CARE [facility] CT ABD/PEL W IVCONon 025 CT ABD/PEL W IVCON Normal [facility] CT CHEST W IVCONon 5 CT CHEST W IVCON Normal [facility] CBC W Auto Differential pane l (Bld)on 10-26-2024 Basophils (Bld) [#/Vol] [facility] Basophils/100 WBC (Bld) 0.4 % [facility] Differential cell count method Nom (Bld) Auto [facility] Eosinophils (Bld) [#/Vol] 0.1 10*3/uL [facility] Eosinophils/100 WBC (Bld) 2 % [facility] Erythrocyte distribution width (RBC) [Ratio] 22.2 % High 11.5 - 15.0 % [facility] Hematocrit (Bld) [Volume fraction] 28 % Low 39.0 - 51.0 % [facility] Hemoglobin (Bld) [Mass/Vol] 8.2 g/dL Low 13.0 - 17.0 g/dL [facility] Immature granulocytes (Bld) [#/Vol] 0.06 10*3/uL [facility] Immature granulocytes/100 WBC (Bld) 1.2 % [facility] Interpretation and review of laboratory results Abnormal [facility] Lymphocytes (Bld) [#/Vol] 0.79 10*3/uL Low [facility] Lymphocytes/100 WBC (Bld) 15.4 % [facility] MCH (RBC) [Entitic mass] 27.4 pg 26.0 - 34.0 pg [facility] MCHC (RBC) [Mass/Vol] 29.3 g/dL Low 30.5 - 36.0 g/dL [facility] MCV (RBC) [Entitic vol] 93.6 fL 80.0 - 100.0 fL [facility] Monocytes (Bld) [#/Vol] 0.56 10*3/uL [facility] Monocytes/100 WBC (Bld) 10.9 % [facility] Neutrophils (Bld) [#/Vol] 3.59 10*3/uL [facility] Neutrophils/100 WBC (Bld) 70.1 % [facility] Nucleated RBC (Bld) [#/Vol] [facility] Nucleated RBC/100 WBC (Bld) [Ratio] 0 % /100 WBC [facility] Platelet mean volume (Bld) [Entitic vol] 9.6 fL 9.0 - 12.7 fL [facility] Platelets (Bld) [#/Vol] 139 10*3/uL Low [facility] RBC (Bld) [#/Vol] 2.99 10*6/uL Low 4.20 - 6.0 0 m/uL [facility] WBC (Bld) [#/Vol] 5.12 10*3/uL [facility] Basophils (Bld) [#/Vol] 10*3/uL Normal <0.11 [facility] Comment on above: Order Comment: Speci men Type: BLOOD SPECIMENOrdering Facility: [facility] Address: [address] [place] [address] Performed By: #### 5 7021-8 ####[facility] [id number] [place] [address] [place] Basophils/100 WBC (Bld) 0.4 % Normal [facility] Comment on above: Order Comment: Speci men Type: BLOOD SPECIMENOrdering Facility: [facility] Address: [address] [place] [address] Performed By: #### 5 7021-8 ####[facility] [id number] [place] [address] [place] Differential cell count method Nom (Bld) Auto Normal [facility] Comment on above: Order Comment: Speci men Type: BLOOD SPECIMENOrdering Facility: [facility] Address: [address] [place] [address] Performed By: #### 5 7021-8 ####[facility] [id number] [place] [address] [place] Eosinophils (Bld) [#/Vol] 0.10 10*3/uL Normal <0.46 [facility] Comment on above: Order Comment: Speci men Type: BLOOD SPECIMENOrdering Facility: [facility] Address: [address] [place] [address] Performed By: #### 5 7021-8 ####[facility] TEDDYWNCLIA [id number] [place] [address] [place] Eosinophils/100 WBC (Bld) 2.0 % Normal [facility] Comment on above: Order Comment: Speci men Type: BLOOD SPECIMENOrdering Facility: [facility] Address: [address] [place] [address] Performed By: #### 5 7021-8 ####[facility]IDANCL[facility] [id number] [place] [address] [place] Erythrocyte distribution width (RBC) [Ratio] 22.2 % High 11.5-15.0 [facility] Comment on above: Order Comment: Speci men Type: BLOOD SPECIMENOrdering Facility: [facility] Address: [address] [place] [address] Performed By: #### 5 7021-8 ####[facility]ANCL[facility] [id number] [place] [address] [place] Hematocrit (Bld) [Volume fraction] 28.0 % Low 39.0-51.0 [facility] Comment on above: Order Comment: Speci men Type: BLOOD SPECIMENOrdering Facility: [facility] Address: [address] [place] [address] Performed By: #### 5 7021-8 ####[facility] FL[facility]IDANCLIA [id number] [place] [address] [place] Hemoglobin (Bld) [Mass/Vol] 8.2 g/dL Low 13.0-17.0 [facility] Comment on above: Order Comment: Speci men Type: BLOOD SPECIMENOrdering Facility: [facility] Address: [address] [place] [address] Performed By: #### 5 7021-8 ####[facility] [id number] [place] [address] [place] Immature granulocytes (Bld) [#/Vol] 0.06 10*3/uL Normal <0.10 [facility] Comment on above: Order Comment: Speci men Type: BLOOD SPECIMENOrdering Facility: [facility] Address: [address] [place] [address] Performed By: #### 5 7021-8 ####[facility] [id number] [place] [address] [place] Immature granulocytes/100 WBC (Bld) 1.2 % Normal [facility] Comment on above: Order Comment: Speci men Type: BLOOD SPECIMENOrdering Facility: [facility] Address: [address] [place] [address] Performed By: #### 5 7021-8 ####[facility] [id number] [place] [address] [place] Lymphocytes (Bld) [#/Vol] 0.79 10*3/uL Low 1.00-4.00 [facility] Comment on above: Order Comment: Speci men Type: BLOOD SPECIMENOrdering Facility: [facility] Address: [address] [place] [address] Performed By: #### 5 7021-8 ####[facility] [id number] [place] [address] [place] Lymphocytes/100 WBC (Bld) 15.4 % Normal [facility] Comment on above: Order Comment: Speci men Type: BLOOD SPECIMENOrdering Facility: [facility] Address: [address] [place] [address] Performed By: #### 5 7021-8 ####[facility] [id number] [place] [address] [place] MCH (RBC) [Entitic mass] 27.4 pg Normal 26.0-34.0 [facility] Comment on above: Order Comment: Speci men Type: BLOOD SPECIMENOrdering Facility: [facility] Address: [address] [place] [address] Performed By: #### 5 7021-8 ####[facility] [id number] [place] [address] [place] MCHC (RBC) [Mass/Vol] 29.3 g/dL Low 30.5-36.0 [facility] Comment on above: Order Comment: Speci men Type: BLOOD SPECIMENOrdering Facility: [facility] Address: [address] [place] [address] Performed By: #### 5 7021-8 ####[facility] [id number] [place] [address] [place] MCV (RBC) [Entitic vol] 93.6 fL Normal 80.0-100.0 [facility] Comment on above: Order Comment: Speci men Type: BLOOD SPECIMENOrdering Facility: [facility] Address: [address] [place] [address] Performed By: #### 5 7021-8 ####[facility] [id number] [place] [address] [place] Monocytes (Bld) [#/Vol] 0.56 10*3/uL Normal <0.87 [facility] Comment on above: Order Comment: Speci men Type: BLOOD SPECIMENOrdering Facility: [facility] Address: [address] [place] [address] Performed By: #### 5 7021-8 ####[facility] [id number] [place] [address] [place] Monocytes/100 WBC (Bld) 10.9 % Normal [facility] Comment on above: Order Comment: Speci men Type: BLOOD SPECIMENOrdering Facility: [facility] Address: [address] [place] [address] Performed By: #### 5 7021-8 ####[facility] MILLTOWNCLIA [id number] [place] [address] [place] Neutrophils (Bld) [#/Vol] 3.59 10*3/uL Normal 1.45-7.50 [facility] Comment on above: Order Comment: Speci men Type: BLOOD SPECIMENOrdering Facility: [facility] Address: [address] [place] [address] Performed By: #### 5 7021-8 ####[facility] ERWNCLIA [id number] [place] [address] [place] Neutrophils/100 WBC (Bld) 70.1 % Normal [facility] Comment on above: Order Comment: Speci men Type: BLOOD SPECIMENOrdering Facility: [facility] Address: [address] [place] [address] Performed By: #### 5 7021-8 ####[facility]ITALLIA [id number] [place] [address] [place] Nucleated RBC (Bld) [#/Vol] 10*3/uL Normal <0.01 [facility] Comment on above: Order Comment: Speci men Type: BLOOD SPECIMENOrdering Facility: [facility] Address: [address] [place] [address] Performed By: #### 5 7021-8 ####[facility] MILLWNCLIA [id number] [place] [address] [place] Nucleated RBC/100 WBC (Bld) [Ratio] 0.0 /100 WBC Normal [facility] Comment on above: Order Comment: Speci men Type: BLOOD SPECIMENOrdering Facility: [facility] Address: [address] [place] [address] Performed By: #### 5 7021-8 ####[facility] MILLBULLHEADNCLIA [id number] [place] [address] [place] Platelet mean volume (Bld) [Entitic vol] 9.6 fL Normal 9.0-12.7 [facility] Comment on above: Order Comment: Speci men Type: BLOOD SPECIMENOrdering Facility: [facility] Address: [address] [place] [address] Performed By: #### 5 7021-8 ####[facility] [id number] [place] [address] [place] Platelets (Bld) [#/Vol] 139 10*3/uL Low 150-400 [facility] Comment on above: Order Comment: Speci men Type: BLOOD SPECIMENOrdering Facility: [facility] Address: [address] [place] [address] Performed By: #### 5 7021-8 ####[facility] [id number] [place] [address] [place] RBC (Bld) [#/Vol] 2.99 10*6/uL Low 4.20-6.00 [facility] Comment on above: Order Comment: Speci men Type: BLOOD SPECIMENOrdering Facility: [facility] Address: [address] [place] [address] Performed By: #### 5 7021-8 ####[facility]IDANCLIA [id number] [place] [address] [place] WBC (Bld) [#/Vol] 5.12 10*3/uL Normal 3.70-11.00 [facility] Comment on above: Order Comment: Speci men Type: BLOOD SPECIMENOrdering Facility: [facility] Address: [address] [place] [address] Performed By: #### 5 7021-8 ####[facility]ANCLIA [id number] [place] [address] [place] CEA SerPl-mCncon 04-30-2025 Carcinoembryonic Ag [Mass/Vol] 45.8 ng/mL High <=2.9 [facility] Comment on above: Order Comment: Speci men Type: BLOOD SPECIMENOrdering Facility: [facility] Address: [address] [place] [address] Result Comment: Carc inoembryonic antigen test is used as an aid in monitoring response to treatment or recurrence in patients with established colorectal, breast, lung, prostatic, pancreatic, and ovarian carcinomas. Clinical correlation is required.The Carcinoembryonic antigen test was performed using the [employer] Unicel DXI paramagnetic particle chemiluminescent immunoassay method. Results obtained with different assay methods or kits cannot be used interchangeably. Performed By: #### 2 039-6 ####[facility] LABCLIA [id number] [address] OF [facility] Comprehensive metabolic 2000 panelOrdered By: Cody Hurtado on 10-26-2024 Albumin [Mass/Vol] 3.6 g/dL Low 3.9 - 4.9 g/dL [facility] ALP [Catalytic activity/Vol] 101 U/L 38 - 113 U/L [facility] ALT [Catalytic activity/Vol] 9 U/L Low 10 - 54 U/L [facility] Anion gap [Moles/Vol] 10 mmol/L 8 - 15 mmol/L [facility] AST [Catalytic activity/Vol] 13 U/L Low 14 - 40 U/L [facility] Bilirubin [Mass/Vol] 0.5 mg/dL 0.2 - 1 .3 mg/dL [facility] Calcium [Mass/Vol] 9.3 mg/dL 8.5 - 10. 2 mg/dL [facility] Chloride [Moles/Vol] 102 mmol/L 98 - 10 7 mmol/L [facility] CO2 [Moles/Vol] 27 mmol/L 22 - 30 mmol/L [facility] Creatinine [Mass/Vol] 0.85 mg/dL 0.73 - 1.22 mg/dL [facility] GFR/1.73 sq M.predicted among non-blacks MDRD (S/P/Bld) [Vol rate/Area] 89 mL/min/{1.73_m2} - PINF [facility] Comment on above: Estimated Glomerular Filtration Rate [...] 166 mg/dL High 74 - 99 mg/dL [facility] Comment on above: The [place] Diab[employer] s Association (ADA) provides guidance for [...] Standards of Medical Care in Diabetes 2016, [place] [employer]. Diabetes Care. 2016.39(Suppl 1). Interpretation and review of laboratory results Abnormal [facility] Potassium [Moles/Vol] 4 mmol/L 3.7 - 5.1 mmol/L [facility] Protein [Mass/Vol] 7.3 g/dL 6.3 - 8.0 g/dL [facility] Sodium [Moles/Vol] 139 mmol/L 136 - 144 mmol/L [facility] Urea nitrogen [Mass/Vol] 12 mg/dL 9 - 24 mg/dL [facility] Comprehensive metabolic 2000 panelon 10-26-2024 Albumin [Mass/Vol] 3.6 g/dL Low 3.9-4.9 [facility] Comment on above: Order Comment: Speci men Type: BLOOD SPECIMENOrdering Facility: [facility] Address: [facility] [place]Lin[address] [place] [id number] Performed By: #### 2 4323-8, 64248-2 ####[facility] CLAUCLEVEL[facility] [id number] [place] [address] [place] ALP [Catalytic activity/Vol] 101 U/L Normal 38-113 [facility] Comment on above: Order Comment: Speci men Type: BLOOD SPECIMENOrdering Facility: [facility] Address: [address] [place] [address] Performed By: #### 2 4323-8, ####[facility] ERWNCLIA [id number] [place] [address] [place] ALT [Catalytic activity/Vol] 9 U/L Low 10-54 [facility] Comment on above: Order Comment: Speci men Type: BLOOD SPECIMENOrdering Facility: [facility] Address: [address] [place] [address] Performed By: #### 2 4323-8, ####[facility]CL[facility] [id number] [place] [address] [place] Anion gap [Moles/Vol] 10 mmol/L Normal 8-15 [facility] Comment on above: Order Comment: Speci men Type: BLOOD SPECIMENOrdering Facility: [facility] Address: [address] [place] [address] Performed By: #### 2 4323-8, ####[facility]ANCLIA [id number] [place] [address] [place] AST [Catalytic activity/Vol] 13 U/L Low 14-40 [facility] Comment on above: Order Comment: Speci men Type: BLOOD SPECIMENOrdering Facility: [facility] Address: [address] [place] [address] Performed By: #### 2 4323-8, ####[facility] [id number] [place] [address] [place] Bilirubin [Mass/Vol] 0.5 mg/dL Normal 0.2-1.3 [facility] Comment on above: Order Comment: Speci men Type: BLOOD SPECIMENOrdering Facility: [facility] Address: [address] [id number] Performed By: #### 2 4323-8, ####[facility] NAALIA [id number] [place] [address] [place] Calcium [Mass/Vol] 9.3 mg/dL Normal 8.5-10.2 [facility] Comment on above: Order Comment: Speci men Type: BLOOD SPECIMENOrdering Facility: [facility] Address: [address] [place], [place] [address] Performed By: #### 2 4323-8, ####[facility] TEDDYCAROLLIA [id number] [place] [address] [place] Chloride [Moles/Vol] 102 mmol/L Normal 98-107 [facility] Comment on above: Order Comment: Speci men Type: BLOOD SPECIMENOrdering Facility: [facility] Address: [address] [place], [place] [address] Performed By: #### 2 4323-8, ####[facility] TEDDYBULLHEADFALGUNIA [id number] [place] [address] [place] CO2 [Moles/Vol] 27 mmol/L Normal 22-30 [facility] Comment on above: Order Comment: Speci men Type: BLOOD SPECIMENOrdering Facility: [facility] Address: [address] [place] [address] Performed By: #### 2 4323-8, ####[facility] MILLWNCLIA [id number] [place] [address] [place] Creatinine [Mass/Vol] 0.85 mg/dL Normal 0.73-1.22 [facility] Comment on above: Order Comment: Speci men Type: BLOOD SPECIMENOrdering Facility: [facility] Address: [address] [place] [address] Performed By: #### 2 4323-8, 30546-4 ####[facility] ERWNCLIA [id number] [place] [address] [place] Creatinine and Glomerular filtration rate.predicted panel (S/P/Bld) 89 mL/min/1.73m??? Normal >=60 [facility] Comment on above: Order Comment: Willam robles Type: BLOOD SPECIMENOrdering Facility: [facility] Address: [address] [place] [address] Result Comment: Rod mated Glomerular Filtration Rate [...] actual GFR. Performed By: #### 2 4323-8, 67243-7 ####[facility]ITALLIA [id number] [place] [address] [place] Glucose [Mass/Vol] 166 mg/dL High 74-99 [facility] Comment on above: Order Comment: Willam robles Type: BLOOD SPECIMENOrdering Facility: [facility] Address: [address] [place] [address] Result Comment: The [place] Diabetes Association (ADA) provides guidance for cutoff [...] Standards of Medical Care in Diabetes 2016, [place] [employer]. Diabetes Care. 2016.39(Suppl 1). Performed By: #### 2 4323-8, 44745-6 ####[facility]ITALLIA [id number] [place] [address] [place] Potassium [Moles/Vol] 4.0 mmol/L Normal 3.7-5.1 [facility] Comment on above: Order Comment: Speci men Type: BLOOD SPECIMENOrdering Facility: [facility] Address: [address] [place] [address] Performed By: #### 2 4323-8, ####[facility] MILLTOWNCLIA [id number] [place] [address] [place] Protein [Mass/Vol] 7.3 g/dL Normal 6.3-8.0 [facility] Comment on above: Order Comment: Speci men Type: BLOOD SPECIMENOrdering Facility: [facility] Address: [address] [place] [address] Performed By: #### 2 4323-8, ####[facility] MILLTOWNCLIA [id number] [place] [address] [place] Sodium [Moles/Vol] 139 mmol/L Normal 136-144 [facility] Comment on above: Order Comment: Speci men Type: BLOOD SPECIMENOrdering Facility: [facility] Address: [address] [place] [address] Performed By: #### 2 4323-8, ####[facility] MILLTOWNCLIA [id number] [place] [address] [place] Urea nitrogen [Mass/Vol] 12 mg/dL Normal 9-24 [facility] Comment on above: Order Comment: Speci men Type: BLOOD SPECIMENOrdering Facility: [facility] Address: [address] [place] [address] Performed By: #### 2 4323-8, ####[facility] MILLTOWNCLIA [id number] [place] [address] [place] MAGNESIUMon 10-26-2024 Magnesium [Mass/Vol] 1.8 mg/dL 1.7 - 2 .3 mg/dL [facility] Magnesium SerPl-mCncon 10-26 Magnesium [Mass/Vol] 1.8 mg/dL Normal 1.7-2.3 [facility] Comment on above: Order Comment: Speci men Type: BLOOD SPECIMENOrdering Facility: [facility] Address: [facility] [place] [id number] Performed By: #### 2 4323-8, 33229-2 ####[facility] CENTERMckenna [id number] [place] [address] [place] Magnesium [Mass/Vol]on 10-26 Interpretation and review of laboratory results Normal [facility] No Panel InformationOrdered By: Cody Hurtado on 10-26-2024 [facility] UA DIP, URINE (POC)on 2024 BILIRUBIN UA (POCT) Negative Negative [facility] CLARITY UA (POCT) Clear [facility] COLOR UA (POCT) Yellow [facility] GLUCOSE UA (POCT) Negative Negative mg/dL [facility] Hemoglobin Ql (U) Negative Negative [facility] KETONE UA (POCT) Negative Negative mg/dL [facility] LEUKOCYTES UA (POCT) Negative Negative [facility] NITRITE UA (POCT) Negative Negative [facility] PH UA (POCT) 5.5 4.5 - 8.0 [facility] Protein Ql (U) Negative Negative mg/dL [facility] SPECIFIC GRAVITY UA (POCT) 1.02 1.005 - 1.030 [facility] UROBILINOGEN UA (POCT) 1 Normal E.U./dL [facility] Location:[facility], [address] , [place], [place], [id number] [place] [address] POINT OF CARE [facility] CBC W Auto Differential pane l (Bld)on 10-12-2024 Basophils (Bld) [#/Vol] NINF [facility] Basophils/100 WBC (Bld) 0.4 % [facility] Differential cell count method Nom (Bld) Auto [facility] Eosinophils (Bld) [#/Vol] 0.09 10*3/uL [facility] Eosinophils/100 WBC (Bld) 1.9 % [facility] Erythrocyte distribution width (RBC) [Ratio] 22.5 % High 11.5 - 15.0 % [facility] Hematocrit (Bld) [Volume fraction] 29.3 % Low 39.0 - 51.0 % [facility] Hemoglobin (Bld) [Mass/Vol] 8.8 g/dL Low 13.0 - 17.0 g/dL [facility] Immature granulocytes (Bld) [#/Vol] 0.06 10*3/uL [facility] Immature granulocytes/100 WBC (Bld) 1.2 % [facility] Interpretation and review of laboratory results Abnormal [facility] Lymphocytes (Bld) [#/Vol] 0.8 10*3/uL Low [facility] Lymphocytes/100 WBC (Bld) 16.6 % [facility] MCH (RBC) [Entitic mass] 28.4 pg 26.0 - 34.0 pg [facility] MCHC (RBC) [Mass/Vol] 30 g/dL Low 30.5 - 36.0 g/dL [facility] MCV (RBC) [Entitic vol] 94.5 fL 80.0 - 100.0 fL [facility] Monocytes (Bld) [#/Vol] 0.5 10*3/uL [facility] Monocytes/100 WBC (Bld) 10.4 % [facility] Neutrophils (Bld) [#/Vol] 3.35 10*3/uL [facility] Neutrophils/100 WBC (Bld) 69.5 % [facility] Nucleated RBC (Bld) [#/Vol] [facility]F [facility] Nucleated RBC/100 WBC (Bld) [Ratio] 0 % /100 WBC [facility] Platelet mean volume (Bld) [Entitic vol] 9.3 fL 9.0 - 12.7 fL [facility] Platelets (Bld) [#/Vol] 149 10*3/uL Low [facility] RBC (Bld) [#/Vol] 3.1 10*6/uL Low 4.20 - 6.0 0 m/uL [facility] WBC (Bld) [#/Vol] 4.82 10*3/uL [facility] Basophils (Bld) [#/Vol] 10*3/uL Normal <0.11 [facility] Comment on above: Order Comment: Speci men Type: BLOOD SPECIMENOrdering Facility: [facility] Address: [address] [place] [address] Performed By: #### 5 7021-8 ####[facility] [id number] [place] [address] [place] Basophils/100 WBC (Bld) 0.4 % Normal [facility] Comment on above: Order Comment: Speci men Type: BLOOD SPECIMENOrdering Facility: [facility] Address: [address] [place] [address] Performed By: #### 5 7021-8 ####[facility] [id number] [place] [address] [place] Differential cell count method Nom (Bld) Auto Normal [facility] Comment on above: Order Comment: Speci men Type: BLOOD SPECIMENOrdering Facility: [facility] Address: [address] [place] [address] Performed By: #### 5 7021-8 ####[facility] [id number] [place] [address] [place] Eosinophils (Bld) [#/Vol] 0.09 10*3/uL Normal <0.46 [facility] Comment on above: Order Comment: Speci men Type: BLOOD SPECIMENOrdering Facility: [facility] Address: [address] [place] [address] Performed By: #### 5 7021-8 ####[facility] [id number] [place] [address] [place] Eosinophils/100 WBC (Bld) 1.9 % Normal [facility] Comment on above: Order Comment: Speci men Type: BLOOD SPECIMENOrdering Facility: [facility] Address: [address] [place] [address] Performed By: #### 5 7021-8 ####[facility] [id number] [place] [address] [place] Erythrocyte distribution width (RBC) [Ratio] 22.5 % High 11.5-15.0 [facility] Comment on above: Order Comment: Speci men Type: BLOOD SPECIMENOrdering Facility: [facility] Address: [address] [place] [address] Performed By: #### 5 7021-8 ####[facility] [id number] [place] [address] [place] Hematocrit (Bld) [Volume fraction] 29.3 % Low 39.0-51.0 [facility] Comment on above: Order Comment: Speci men Type: BLOOD SPECIMENOrdering Facility: [facility] Address: [address] [place] [address] Performed By: #### 5 7021-8 ####[facility] [id number] [place] [address] [place] Hemoglobin (Bld) [Mass/Vol] 8.8 g/dL Low 13.0-17.0 [facility] Comment on above: Order Comment: Speci men Type: BLOOD SPECIMENOrdering Facility: [facility] Address: [address] [place] [address] Performed By: #### 5 7021-8 ####[facility] [id number] [place] [address] [place] Immature granulocytes (Bld) [#/Vol] 0.06 10*3/uL Normal <0.10 [facility] Comment on above: Order Comment: Speci men Type: BLOOD SPECIMENOrdering Facility: [facility] Address: [address] [place] [address] Performed By: #### 5 7021-8 ####[facility] [id number] [place] [address] [place] Immature granulocytes/100 WBC (Bld) 1.2 % Normal [facility] Comment on above: Order Comment: Speci men Type: BLOOD SPECIMENOrdering Facility: [facility] Address: [address] [place] [address] Performed By: #### 5 7021-8 ####[facility] [id number] [place] [address] [place] Lymphocytes (Bld) [#/Vol] 0.80 10*3/uL Low 1.00-4.00 [facility] Comment on above: Order Comment: Speci men Type: BLOOD SPECIMENOrdering Facility: [facility] Address: [address] [place] [address] Performed By: #### 5 7021-8 ####[facility] [id number] [place] [address] [place] Lymphocytes/100 WBC (Bld) 16.6 % Normal [facility] Comment on above: Order Comment: Speci men Type: BLOOD SPECIMENOrdering Facility: [facility] Address: [address] [place] [address] Performed By: #### 5 7021-8 ####[facility]CL[facility] [id number] [place] [address] [place] MCH (RBC) [Entitic mass] 28.4 pg Normal 26.0-34.0 [facility] Comment on above: Order Comment: Speci men Type: BLOOD SPECIMENOrdering Facility: [facility] Address: [address] [place] [address] Performed By: #### 5 7021-8 ####[facility]CL[facility] [id number] [place] [address] [place] MCHC (RBC) [Mass/Vol] 30.0 g/dL Low 30.5-36.0 [facility] Comment on above: Order Comment: Speci men Type: BLOOD SPECIMENOrdering Facility: [facility] Address: [address] [place] [address] Performed By: #### 5 7021-8 ####[facility] TEDDYGANESH [id number] [place] [address] [place] MCV (RBC) [Entitic vol] 94.5 fL Normal 80.0-100.0 [facility] Comment on above: Order Comment: Speci men Type: BLOOD SPECIMENOrdering Facility: [facility] Address: [address] [place] [address] Performed By: #### 5 7021-8 ####[facility]LO [id number] [place] [address] [place] Monocytes (Bld) [#/Vol] 0.50 10*3/uL Normal <0.87 [facility] Comment on above: Order Comment: Speci men Type: BLOOD SPECIMENOrdering Facility: [facility] Address: [address] [place] [address] Performed By: #### 5 7021-8 ####[facility]CL[facility] [id number] [place] [address] [place] Monocytes/100 WBC (Bld) 10.4 % Normal [facility] Comment on above: Order Comment: Speci men Type: BLOOD SPECIMENOrdering Facility: [facility] Address: [address] [place] [address] Performed By: #### 5 7021-8 ####[facility]CL[facility] [id number] [place] [address] [place] Neutrophils (Bld) [#/Vol] 3.35 10*3/uL Normal 1.45-7.50 [facility] Comment on above: Order Comment: Speci men Type: BLOOD SPECIMENOrdering Facility: [facility] Address: [address] [place] [address] Performed By: #### 5 7021-8 ####[facility] TEDDYWNCLIA [id number] [place] [address] [place] Neutrophils/100 WBC (Bld) 69.5 % Normal [facility] Comment on above: Order Comment: Speci men Type: BLOOD SPECIMENOrdering Facility: [facility] Address: [address] [place] [address] Performed By: #### 5 7021-8 ####[facility] FL[facility]IDAGIANNALIA [id number] [place] [address] [place] Nucleated RBC (Bld) [#/Vol] 10*3/uL Normal <0.01 [facility] Comment on above: Order Comment: Speci men Type: BLOOD SPECIMENOrdering Facility: [facility] Address: [address] [place] [address] Performed By: #### 5 7021-8 ####[facility] [id number] [place] [address] [place] Nucleated RBC/100 WBC (Bld) [Ratio] 0.0 /100 WBC Normal [facility] Comment on above: Order Comment: Speci men Type: BLOOD SPECIMENOrdering Facility: [facility] Address: [address] [place] [address] Performed By: #### 5 7021-8 ####[facility] [id number] [place] [address] [place] Platelet mean volume (Bld) [Entitic vol] 9.3 fL Normal 9.0-12.7 [facility] Comment on above: Order Comment: Speci men Type: BLOOD SPECIMENOrdering Facility: [facility] Address: [address] [place] [address] Performed By: #### 5 7021-8 ####[facility] [id number] [place] [address] [place] Platelets (Bld) [#/Vol] 149 10*3/uL Low 150-400 [facility] Comment on above: Order Comment: Speci men Type: BLOOD SPECIMENOrdering Facility: [facility] Address: [address] [place] [address] Performed By: #### 5 7021-8 ####[facility] [id number] [place] [address] [place] RBC (Bld) [#/Vol] 3.10 10*6/uL Low 4.20-6.00 [facility] Comment on above: Order Comment: Speci men Type: BLOOD SPECIMENOrdering Facility: [facility] Address: [address] [place] [address] Performed By: #### 5 7021-8 ####[facility]CA [id number] [place] [address] [place] WBC (Bld) [#/Vol] 4.82 10*3/uL Normal 3.70-11.00 [facility] Comment on above: Order Comment: Speci men Type: BLOOD SPECIMENOrdering Facility: [facility] Address: [address] [place] [address] Performed By: #### 5 7021-8 ####[facility]CL[facility] [id number] [place] [address] [place] CEA SerPl-ncon 10-12-2024 Carcinoembryonic Ag [Mass/Vol] 31.8 ng/mL High <=2.9 [facility] Comment on above: Order Comment: Speci men Type: BLOOD SPECIMENOrdering Facility: [facility] Address: [address] [place] [address] Result Comment: Carc inoembryonic antigen test is used as an aid in monitoring response to treatment or recurrence in patients with established colorectal, breast, lung, prostatic, pancreatic, and ovarian carcinomas. Clinical correlation is required.The Carcinoembryonic antigen test was performed using the [employer] Unicel DXI paramagnetic particle chemiluminescent immunoassay method. Results obtained with different assay methods or kits cannot be used interchangeably. Performed By: #### 2 039-6 ####[facility] LABCLIA [id number] [facility]PITALSheng [address] [place] CNOVSPon 10-12-2024 CNOVSP Normal [facility] metabolic 2000 panelOrdered By: Cody Hurtado on 10-12-2024 Albumin [Mass/Vol] 3.8 g/dL Low 3.9 - 4.9 g/dL [facility] ALP [Catalytic activity/Vol] 109 U/L 38 - 113 U/L [facility] ALT [Catalytic activity/Vol] 9 U/L Low 10 - 54 U/L [facility] Anion gap [Moles/Vol] 9 mmol/L 8 - 15 mmol/L [facility] AST [Catalytic activity/Vol] 13 U/L Low 14 - 40 U/L [facility] Bilirubin [Mass/Vol] 0.4 mg/dL 0.2 - 1 .3 mg/dL [facility] Calcium [Mass/Vol] 9.3 mg/dL 8.5 - 10. 2 mg/dL [facility] Chloride [Moles/Vol] 102 mmol/L 98 - 10 7 mmol/L [facility] CO2 [Moles/Vol] 27 mmol/L 22 - 30 mmol/L [facility] Creatinine [Mass/Vol] 0.75 mg/dL 0.73 - 1.22 mg/dL [facility] GFR/1.73 sq M.predicted among non-blacks MDRD (S/P/Bld) [Vol rate/Area] 94 mL/min/{1.73_m2} - PINF [facility] Comment on above: Estimated Glomerular Filtration Rate [...] 157 mg/dL High 74 - 99 mg/dL [facility] Comment on above: The [place] Di[employer] Association (ADA) provides guidance for [...] Standards of Medical Care in Diabetes 2016, [place] [employer]. Diabetes Care. 2016.39(Suppl 1). Interpretation and review of laboratory results Abnormal [facility] Potassium [Moles/Vol] 3.8 mmol/L 3.7 - 5.1 mmol/L [facility] Protein [Mass/Vol] 7.2 g/dL 6.3 - 8.0 g/dL [facility] Sodium [Moles/Vol] 138 mmol/L 136 - 144 mmol/L [facility] Urea nitrogen [Mass/Vol] 12 mg/dL 9 - 24 mg/dL [facility] Comprehensive metabolic 2000 panelon 10-12-2024 Albumin [Mass/Vol] 3.8 g/dL Low 3.9-4.9 [facility] Comment on above: Order Comment: Willam robles Type: BLOOD SPECIMENOrdering Facility: [facility] Address: [address] [place] [address] Performed By: #### 2 4323-8, ####[facility] [id number] [place] [address] [place] ALP [Catalytic activity/Vol] 109 U/L Normal 38-113 [facility] Comment on above: Order Comment: Patti men Type: BLOOD SPECIMENOrdering Facility: [facility] Address: [address] [place] [address] Performed By: #### 2 4323-8, ####[facility] [id number] [place] [address] [place] ALT [Catalytic activity/Vol] 9 U/L Low 10-54 [facility] Comment on above: Order Comment: Speci men Type: BLOOD SPECIMENOrdering Facility: [facility] Address: [address] [place] [address] Performed By: #### 2 4323-8, ####[facility] ERWNCLIA [id number] [place] [address] [place] Anion gap [Moles/Vol] 9 mmol/L Normal 8-15 [facility] Comment on above: Order Comment: Speci men Type: BLOOD SPECIMENOrdering Facility: [facility] Address: [address] [place] [address] Performed By: #### 2 4323-8, ####[facility] [id number] [place] [address] [place] AST [Catalytic activity/Vol] 13 U/L Low 14-40 [facility] Comment on above: Order Comment: Speci men Type: BLOOD SPECIMENOrdering Facility: [facility] Address: [address] [place] [address] Performed By: #### 2 4323-8, ####[facility] [id number] [place] [address] [place] Bilirubin [Mass/Vol] 0.4 mg/dL Normal 0.2-1.3 [facility] Comment on above: Order Comment: Speci men Type: BLOOD SPECIMENOrdering Facility: [facility] Address: [address] [place] [address] Performed By: #### 2 4323-8, ####[facility] [id number] [place] [address] [place] Calcium [Mass/Vol] 9.3 mg/dL Normal 8.5-10.2 [facility] Comment on above: Order Comment: Speci men Type: BLOOD SPECIMENOrdering Facility: [facility] Address: [address] [place] [address] Performed By: #### 2 4323-8, ####[facility] SCHNEIDERNCCARLO [id number] [place] [address] [place] Chloride [Moles/Vol] 102 mmol/L Normal 98-107 [facility] Comment on above: Order Comment: Speci men Type: BLOOD SPECIMENOrdering Facility: [facility] Address: [address] [place] [address] Performed By: #### 2 4323-8, ####[facility] TEDDYMARIOLAA [id number] [place] [address] [place] CO2 [Moles/Vol] 27 mmol/L Normal 22-30 [facility] Comment on above: Order Comment: Speci men Type: BLOOD SPECIMENOrdering Facility: [facility] Address: [address] [place] [address] Performed By: #### 2 4323-8, ####[facility] TEDDYBULLHEADFALGUNIA [id number] [place] [address] [place] Creatinine [Mass/Vol] 0.75 mg/dL Normal 0.73-1.22 [facility] Comment on above: Order Comment: Speci men Type: BLOOD SPECIMENOrdering Facility: [facility] Address: [address] [place] [address] Performed By: #### 2 4323-8, ####[facility] [id number] [place] [address] [place] Creatinine and Glomerular filtration rate.predicted panel (S/P/Bld) 94 mL/min/1.73m??? Normal >=60 [facility] Comment on above: Order Comment: Speci men Type: BLOOD SPECIMENOrdering Facility: [facility] Address: [facility] [place] [address] Result Comment: Rod mated Glomerular Filtration Rate [...] actual GFR. Performed By: #### 2 4323-8, ####[facility] [id number] [place] [address] [place] Glucose [Mass/Vol] 157 mg/dL High 74-99 [facility] Comment on above: Order Comment: Speci men Type: BLOOD SPECIMENOrdering Facility: [facility] Address: [address] [place] [address] Result Comment: The [place] Diabetes Association (ADA) provides guidance for cutoff [...] Standards of Medical Care in Diabetes 2016, [place] [employer]. Diabetes Care. 2016.39(Suppl 1). Performed By: #### 2 4323-8, ####[facility] [id number] [place] [address] [place] Potassium [Moles/Vol] 3.8 mmol/L Normal 3.7-5.1 [facility] Comment on above: Order Comment: Speci men Type: BLOOD SPECIMENOrdering Facility: [facility] Address: [address] [place] [address] Performed By: #### 2 4323-8, 17704-7 ####[facility] MILLWNCLIA [id number] [place] [address] [place] Protein [Mass/Vol] 7.2 g/dL Normal 6.3-8.0 [facility] Comment on above: Order Comment: Speci men Type: BLOOD SPECIMENOrdering Facility: [facility] Address: [address] [place] [address] Performed By: #### 2 4323-8, ####[facility] [id number] [place] [address] [place] Sodium [Moles/Vol] 138 mmol/L Normal 136-144 [facility] Comment on above: Order Comment: Speci men Type: BLOOD SPECIMENOrdering Facility: [facility] Address: [address] [place] [address] Performed By: #### 2 4323-8, ####[facility] [id number] [place] [address] [place] Urea nitrogen [Mass/Vol] 12 mg/dL Normal 9-24 [facility] Comment on above: Order Comment: Speci men Type: BLOOD SPECIMENOrdering Facility: [facility] Address: [address] [place] [address] Performed By: #### 2 4323-8, ####[facility] [id number] [place] [address] [place] MAGNESIUMon 10-12-2024 Magnesium [Mass/Vol] 1.8 mg/dL 1.7 - 2 .3 mg/dL [facility] Magnesium SerPl-mCncon 10-12 Magnesium [Mass/Vol] 1.8 mg/dL Normal 1.7-2.3 [facility] Comment on above: Order Comment: Speci men Type: BLOOD SPECIMENOrdering Facility: [facility] Address: [address] [place], [place] [address] [id number] Performed By: #### 2 4323-8, 97901-4 ####[facility] CLAU [facility] HOSPITALMckenna [id number] [place] [id number] [place] Magnesium [Mass/Vol]on 10-12 Interpretation and review of laboratory results Normal [facility] No Panel InformationOrdered By: Cody Hurtado on 10-12-2024 [facility] CBC W Auto Differential pane l (Bld)on 09-28-2024 Basophils (Bld) [#/Vol] 0.03 10*3/uL [facility]F [facility] Basophils/100 WBC (Bld) 0.5 % [facility] Differential cell count method Nom (Bld) Auto [facility] Eosinophils (Bld) [#/Vol] 0.09 10*3/uL [facility] Eosinophils/100 WBC (Bld) 1.5 % [facility] Erythrocyte distribution width (RBC) [Ratio] 22.3 % High 11.5 - 15.0 % [facility] Hematocrit (Bld) [Volume fraction] 29 % Low 39.0 - 51.0 % [facility] Hemoglobin (Bld) [Mass/Vol] 8.8 g/dL Low 13.0 - 17.0 g/dL [facility] Immature granulocytes (Bld) [#/Vol] 0.21 10*3/uL High [facility] Immature granulocytes/100 WBC (Bld) 3.6 % [facility] Interpretation and review of laboratory results Abnormal [facility] Lymphocytes (Bld) [#/Vol] 0.89 10*3/uL Low [facility] Lymphocytes/100 WBC (Bld) 15.3 % [facility] MCH (RBC) [Entitic mass] 28.9 pg 26.0 - 34.0 pg [facility] MCHC (RBC) [Mass/Vol] 30.3 g/dL Low 30.5 - 36.0 g/dL [facility] MCV (RBC) [Entitic vol] 95.1 fL 80.0 - 100.0 fL [facility] Monocytes (Bld) [#/Vol] 0.48 10*3/uL [facility] Monocytes/100 WBC (Bld) 8.2 % [facility] Neutrophils (Bld) [#/Vol] 4.12 10*3/uL [facility] Neutrophils/100 WBC (Bld) 70.9 % [facility] [facility] Nucleated RBC (Bld) [#/Vol] NINF [facility] Nucleated RBC/100 WBC (Bld) [Ratio] 0 % /100 WBC [facility] Platelet mean volume (Bld) [Entitic vol] 9.8 fL 9.0 - 12.7 fL [facility] Platelets (Bld) [#/Vol] 143 10*3/uL Low [facility] RBC (Bld) [#/Vol] 3.05 10*6/uL Low 4.20 - 6.0 0 m/uL [facility] WBC (Bld) [#/Vol] 5.82 10*3/uL [facility] Basophils (Bld) [#/Vol] 0.03 10*3/uL Normal <0.11 [facility] Comment on above: Order Comment: Speci men Type: BLOOD SPECIMENOrdering Facility: [facility] Address: [address] [place] [address] Performed By: #### 5 7021-8 ####[facility] [id number] [place] [address] [place] Basophils/100 WBC (Bld) 0.5 % Normal [facility] Comment on above: Order Comment: Speci men Type: BLOOD SPECIMENOrdering Facility: [facility] Address: [address] [place] [address] Performed By: #### 5 7021-8 ####[facility]ITALLIA [id number] [place] [address] [place] Differential cell count method Nom (Bld) Auto Normal [facility] Comment on above: Order Comment: Speci men Type: BLOOD SPECIMENOrdering Facility: [facility] Address: [address] [place] [address] Performed By: #### 5 7021-8 ####[facility] [id number] [place] [address] [place] Eosinophils (Bld) [#/Vol] 0.09 10*3/uL Normal <0.46 [facility] Comment on above: Order Comment: Speci men Type: BLOOD SPECIMENOrdering Facility: [facility] Address: [address] [place] [address] Performed By: #### 5 7021-8 ####[facility] [id number] [place] [address] [place] Eosinophils/100 WBC (Bld) 1.5 % Normal [facility] Comment on above: Order Comment: Speci men Type: BLOOD SPECIMENOrdering Facility: [facility] Address: [address] [place] [address] Performed By: #### 5 7021-8 ####[facility] [id number] [place] [address] [place] Erythrocyte distribution width (RBC) [Ratio] 22.3 % High 11.5-15.0 [facility] Comment on above: Order Comment: Speci men Type: BLOOD SPECIMENOrdering Facility: [facility] Address: [address] [place] [address] Performed By: #### 5 7021-8 ####[facility] [id number] [place] [address] [place] Hematocrit (Bld) [Volume fraction] 29.0 % Low 39.0-51.0 [facility] Comment on above: Order Comment: Speci men Type: BLOOD SPECIMENOrdering Facility: [facility] Address: [address] [place] [address] Performed By: #### 5 7021-8 ####[facility] [id number] [place] [address] [place] Hemoglobin (Bld) [Mass/Vol] 8.8 g/dL Low 13.0-17.0 [facility] Comment on above: Order Comment: Speci men Type: BLOOD SPECIMENOrdering Facility: [facility] Address: [address] [place] [address] Performed By: #### 5 7021-8 ####[facility] ANGEL [id number] [place] [address] [place] Immature granulocytes (Bld) [#/Vol] 0.21 10*3/uL High <0.10 [facility] Comment on above: Order Comment: Speci men Type: BLOOD SPECIMENOrdering Facility: [facility] Address: [address] [place] [address] Performed By: #### 5 7021-8 ####[facility] [id number] [place] [address] [place] Immature granulocytes/100 WBC (Bld) 3.6 % Normal [facility] Comment on above: Order Comment: Speci men Type: BLOOD SPECIMENOrdering Facility: [facility] Address: [address] [place] [address] Performed By: #### 5 7021-8 ####[facility]ENTERMckenna [id number] [place] [address] [place] Lymphocytes (Bld) [#/Vol] 0.89 10*3/uL Low 1.00-4.00 [facility] Comment on above: Order Comment: Speci men Type: BLOOD SPECIMENOrdering Facility: [facility] Address: [address] [place] [address] Performed By: #### 5 7021-8 ####[facility]NALIA [id number] [place] [address] [place] Lymphocytes/100 WBC (Bld) 15.3 % Normal [facility] Comment on above: Order Comment: Speci men Type: BLOOD SPECIMENOrdering Facility: [facility] Address: [address] [place] [address] Performed By: #### 5 7021-8 ####[facility]CL[facility] [id number] [place] [address] [place] MCH (RBC) [Entitic mass] 28.9 pg Normal 26.0-34.0 [facility] Comment on above: Order Comment: Speci men Type: BLOOD SPECIMENOrdering Facility: [facility] Address: [address] [place] [address] Performed By: #### 5 7021-8 ####[facility] [id number] [place] [address] [place] MCHC (RBC) [Mass/Vol] 30.3 g/dL Low 30.5-36.0 [facility] Comment on above: Order Comment: Speci men Type: BLOOD SPECIMENOrdering Facility: [facility] Address: [address] [place] [address] Performed By: #### 5 7021-8 ####[facility] [id number] [place] [address] [place] MCV (RBC) [Entitic vol] 95.1 fL Normal 80.0-100.0 [facility] Comment on above: Order Comment: Speci men Type: BLOOD SPECIMENOrdering Facility: [facility] Address: [address] [place] [address] Performed By: #### 5 7021-8 ####[facility] [id number] [place] [address] [place] Monocytes (Bld) [#/Vol] 0.48 10*3/uL Normal <0.87 [facility] Comment on above: Order Comment: Speci men Type: BLOOD SPECIMENOrdering Facility: [facility] Address: [address] [place] [address] Performed By: #### 5 7021-8 ####[facility] [id number] [place] [address] [place] Monocytes/100 WBC (Bld) 8.2 % Normal [facility] Comment on above: Order Comment: Speci men Type: BLOOD SPECIMENOrdering Facility: [facility] Address: [address] [place] [address] Performed By: #### 5 7021-8 ####[facility] [id number] [place] [address] [place] Neutrophils (Bld) [#/Vol] 4.12 10*3/uL Normal 1.45-7.50 [facility] Comment on above: Order Comment: Speci men Type: BLOOD SPECIMENOrdering Facility: [facility] Address: [address] [place] [address] Performed By: #### 5 7021-8 ####[facility] [id number] [place] [address] [place] Neutrophils/100 WBC (Bld) 70.9 % Normal [facility] Comment on above: Order Comment: Speci men Type: BLOOD SPECIMENOrdering Facility: [facility] Address: [address] [place] [address] Performed By: #### 5 7021-8 ####[facility] [id number] [place] [address] [place] Nucleated RBC (Bld) [#/Vol] 10*3/uL Normal <0.01 [facility] Comment on above: Order Comment: Speci men Type: BLOOD SPECIMENOrdering Facility: [facility] Address: [address] [place] [address] Performed By: #### 5 7021-8 ####[facility] [id number] [place] [address] [place] Nucleated RBC/100 WBC (Bld) [Ratio] 0.0 /100 WBC Normal [facility] Comment on above: Order Comment: Speci men Type: BLOOD SPECIMENOrdering Facility: [facility] Address: [address] [place] [address] Performed By: #### 5 7021-8 ####[facility] ANGEL [id number] [place] [address] [place] Platelet mean volume (Bld) [Entitic vol] 9.8 fL Normal 9.0-12.7 [facility] Comment on above: Order Comment: Speci men Type: BLOOD SPECIMENOrdering Facility: [facility] Address: [address] [place] [address] Performed By: #### 5 7021-8 ####[facility] TEDDYBULLHEADBANG [id number] [place] [address] [place] Platelets (Bld) [#/Vol] 143 10*3/uL Low 150-400 [facility] Comment on above: Order Comment: Speci men Type: BLOOD SPECIMENOrdering Facility: [facility] Address: [address] [place] [address] Performed By: #### 5 7021-8 ####[facility] TEDDYBULLHEADFALGUNIA [id number] [place] [address] [place] RBC (Bld) [#/Vol] 3.05 10*6/uL Low 4.20-6.00 [facility] Comment on above: Order Comment: Speci men Type: BLOOD SPECIMENOrdering Facility: [facility] Address: [address] [place] [address] Performed By: #### 5 7021-8 ####[facility] [id number] [place] [address] [place] WBC (Bld) [#/Vol] 5.82 10*3/uL Normal 3.70-11.00 [facility] Comment on above: Order Comment: Speci men Type: BLOOD SPECIMENOrdering Facility: [facility] Address: [address] [place] [address] Performed By: #### 5 7021-8 ####[facility] [id number] [place] [address] [place] CEA SerPl-mCncon 09-28-2024 Carcinoembryonic Ag [Mass/Vol] 25.5 ng/mL High <=2.9 [facility] Comment on above: Order Comment: Speci men Type: BLOOD SPECIMENOrdering Facility: [facility] Address: [address] [place] [address] Result Comment: Carc inoembryonic antigen test is used as an aid in monitoring response to treatment or recurrence in patients with established colorectal, breast, lung, prostatic, pancreatic, and ovarian carcinomas. Clinical correlation is required.The Carcinoembryonic antigen test was performed using the [employer] Unicel DXI paramagnetic particle chemiluminescent immunoassay method. Results obtained with different assay methods or kits cannot be used interchangeably. Performed By: #### 2 039-6 ####[facility] LABCLIA [id number] [place] [address] [place] Comprehensive metabolic 2000 panelOrdered By: Cody Hurtado on 09-28-2024 Albumin [Mass/Vol] 3.6 g/dL Low 3.9 - 4.9 g/dL [facility] ALP [Catalytic activity/Vol] 139 U/L High 38 - 113 U/L [facility] ALT [Catalytic activity/Vol] 10 U/L 10 - 54 U/L [facility] Anion gap [Moles/Vol] 6 mmol/L Low 8 - 15 mmol/L [facility] AST [Catalytic activity/Vol] 14 U/L 14 - 40 U/L [facility] Bilirubin [Mass/Vol] 0.5 mg/dL 0.2 - 1 .3 mg/dL [facility] Calcium [Mass/Vol] 9 mg/dL 8.5 - 10. 2 mg/dL [facility] Chloride [Moles/Vol] 105 mmol/L 98 - 10 7 mmol/L [facility] CO2 [Moles/Vol] 29 mmol/L 22 - 30 mmol/L [facility] Creatinine [Mass/Vol] 0.72 mg/dL Low 0.73 - 1.22 mg/dL [facility] GFR/1.73 sq M.predicted among non-blacks MDRD (S/P/Bld) [Vol rate/Area] 95 mL/min/{1.73_m2} - PINF [facility] Comment on above: Estimated Glomerular Filtration Rate [...] 170 mg/dL High 74 - 99 mg/dL [facility] Comment on above: The [place] Di[employer] Association (ADA) provides guidance for [...] Standards of Medical Care in Diabetes 2016, [place] [employer]. Diabetes Care. 2016.39(Suppl 1). Interpretation and review of laboratory results Abnormal [facility] Potassium [Moles/Vol] 3.7 mmol/L 3.7 - 5.1 mmol/L [facility] Protein [Mass/Vol] 7 g/dL 6.3 - 8.0 g/dL [facility] Sodium [Moles/Vol] 140 mmol/L 136 - 144 mmol/L [facility] Urea nitrogen [Mass/Vol] 14 mg/dL 9 - 24 mg/dL [facility] Comprehensive metabolic 2000 panelon 09-28-2024 Albumin [Mass/Vol] 3.6 g/dL Low 3.9-4.9 [facility] Comment on above: Order Comment: Speci men Type: BLOOD SPECIMENOrdering Facility: [facility] Address: [address] [id number] Performed By: #### 2 5483-8, ####[facility] CLAU MILLTOWNCLIA [id number] [place] [address] [place] ALP [Catalytic activity/Vol] 139 U/L High 38-113 [facility] Comment on above: Order Comment: Speci men Type: BLOOD SPECIMENOrdering Facility: [facility] Address: [address] [place] [address] Performed By: #### 2 4323-8, ####[facility] MILLWNCLIA [id number] [place] [address] [place] ALT [Catalytic activity/Vol] 10 U/L Normal 10-54 [facility] Comment on above: Order Comment: Speci men Type: BLOOD SPECIMENOrdering Facility: [facility] Address: [address] [place] [address] Performed By: #### 2 4323-8, ####[facility] [id number] [place] [address] [place] Anion gap [Moles/Vol] 6 mmol/L Low 8-15 [facility] Comment on above: Order Comment: Speci men Type: BLOOD SPECIMENOrdering Facility: [facility] Address: [address] [place] [address] Performed By: #### 2 4323-8, ####[facility] MILLWNCLIA [id number] [place] [address] [place] AST [Catalytic activity/Vol] 14 U/L Normal 14-40 [facility] Comment on above: Order Comment: Speci men Type: BLOOD SPECIMENOrdering Facility: [facility] Address: [address] [place] [address] Performed By: #### 2 4323-8, ####[facility] [id number] [place] [address] [place] Bilirubin [Mass/Vol] 0.5 mg/dL Normal 0.2-1.3 [facility] Comment on above: Order Comment: Speci men Type: BLOOD SPECIMENOrdering Facility: [facility] Address: [address] [place] [address] Performed By: #### 2 4323-8, 00247-7 ####[facility] MILLWFALGUNIA [id number] [place] [address] [place] Calcium [Mass/Vol] 9.0 mg/dL Normal 8.5-10.2 [facility] Comment on above: Order Comment: Speci men Type: BLOOD SPECIMENOrdering Facility: [facility] Address: [address] [place] [address] Performed By: #### 2 4323-8, ####[facility] [id number] [place] [address] [place] Chloride [Moles/Vol] 105 mmol/L Normal 98-107 [facility] Comment on above: Order Comment: Speci men Type: BLOOD SPECIMENOrdering Facility: [facility] Address: [address] [place] [address] Performed By: #### 2 4323-8, ####[facility] [id number] [place] [address] [place] CO2 [Moles/Vol] 29 mmol/L Normal 22-30 [facility] Comment on above: Order Comment: Speci men Type: BLOOD SPECIMENOrdering Facility: [facility] Address: [address] [place] [address] Performed By: #### 2 4323-8, ####[facility] ERWNCLIA [id number] [place] [address] [place] Creatinine [Mass/Vol] 0.72 mg/dL Low 0.73-1.22 [facility] Comment on above: Order Comment: Willam robles Type: BLOOD SPECIMENOrdering Facility: [facility] Address: [address] [place] [address] Performed By: #### 2 4323-8, ####[facility]CL[facility] [id number] [place] [address] [place] Creatinine and Glomerular filtration rate.predicted panel (S/P/Bld) 95 mL/min/1.73m??? Normal >=60 [facility] Comment on above: Order Comment: Willam robles Type: BLOOD SPECIMENOrdering Facility: [facility] Address: [address] [place] [address] Result Comment: Rod mated Glomerular Filtration Rate [...] actual GFR. Performed By: #### 2 4323-8, ####[facility]A [id number] [place] [address] [place] Glucose [Mass/Vol] 170 mg/dL High 74-99 [facility] Comment on above: Order Comment: Willam robles Type: BLOOD SPECIMENOrdering Facility: [facility] Address: [address] [place] [address] Result Comment: The [place] Diabetes Association (ADA) provides guidance for cutoff [...] Standards of Medical Care in Diabetes 2016, [place] [employer]. Diabetes Care. 2016.39(Suppl 1). Performed By: #### 2 4323-8, ####[facility] TEDDYWNCLIA [id number] [place] [address] [place] Potassium [Moles/Vol] 3.7 mmol/L Normal 3.7-5.1 [facility] Comment on above: Order Comment: Speci men Type: BLOOD SPECIMENOrdering Facility: [facility] Address: [address] [place], [place] [id number] Performed By: #### 2 4323-8, ####[facility] FL[facility]IDANCMckenna [id number] [place] [address] [place] Protein [Mass/Vol] 7.0 g/dL Normal 6.3-8.0 [facility] Comment on above: Order Comment: Speci men Type: BLOOD SPECIMENOrdering Facility: [facility] Address: [address] [place] [address] Performed By: #### 2 4323-8, ####[facility] [id number] [place] [address] [place] Sodium [Moles/Vol] 140 mmol/L Normal 136-144 [facility] Comment on above: Order Comment: Speci men Type: BLOOD SPECIMENOrdering Facility: [facility] Address: [address] [place] [address] Performed By: #### 2 4323-8, ####[facility] [id number] [place] [address] [place] Urea nitrogen [Mass/Vol] 14 mg/dL Normal 9-24 [facility] Comment on above: Order Comment: Speci men Type: BLOOD SPECIMENOrdering Facility: [facility] Address: [address] [place], [place] [address] [address] Performed By: #### 2 4323-8, 34043-9 ####[facility] ANGEL [id number] [place] [address] [place] MAGNESIUMon 09-28-2024 Magnesium [Mass/Vol] 1.7 mg/dL 1.7 - 2 .3 mg/dL [facility] Magnesium SerPl-mCncon 09-28 Magnesium [Mass/Vol] 1.7 mg/dL Normal 1.7-2.3 [facility] Comment on above: Order Comment: Speci men Type: BLOOD SPECIMENOrdering Facility: [facility] Address: [facility] [address] [place] [id number] Performed By: #### 2 4323-8, 97952-6 ####[facility] TEDDYBULLHEADNCBECKYA [id number] [place] [address] [place] Magnesium [Mass/Vol]on 09-28 Interpretation and review of laboratory results Normal [facility] No Panel InformationOrdered By: Cody Hurtado on 09-28-2024 [facility] UA DIP, URINE (POC)on 2024 BILIRUBIN UA (POCT) Negative Negative [facility] CLARITY UA (POCT) Slightly Cloudy Cl [facility] COLOR UA (POCT) Jocelin [facility] GLUCOSE UA (POCT) 100 mg/dL Abnormal Negative [facility] Hemoglobin Ql (U) Negative Negative [facility] Interpretation and review of laboratory results Abnormal [facility] KETONE UA (POCT) Negative Negative mg/dL [facility] LEUKOCYTES UA (POCT) Negative Negative [facility] NITRITE UA (POCT) Negative Negative [facility] PH UA (POCT) 6.5 4.5 - 8.0 [facility] Protein Ql (U) Trace Abnormal Negative mg/dL [facility] SPECIFIC GRAVITY UA (POCT) 1.025 1.005 - 1.030 [facility] UROBILINOGEN UA (POCT) >=8.0 Abnormal Normal E.U./dL [facility] Location:[facility] [address] [facility], [place], [address] [facility] POINT [facility] CARE [facility] CNPNon 09-23-2024 CNPN Normal [facility] CBC W Auto Differential pane l (Bld)on 09-14-2024 Basophils (Bld) [#/Vol] [facility] Basophils/100 WBC (Bld) 0.4 % [facility] Differential cell count method Nom (Bld) Auto [facility] Eosinophils (Bld) [#/Vol] 0.08 10*3/uL [facility] Eosinophils/100 WBC (Bld) 1.5 % [facility] Erythrocyte distribution width (RBC) [Ratio] 22.1 % High 11.5 - 15.0 % [facility] Hematocrit (Bld) [Volume fraction] 29 % Low 39.0 - 51.0 % [facility] Hemoglobin (Bld) [Mass/Vol] 8.5 g/dL Low 13.0 - 17.0 g/dL [facility] Immature granulocytes (Bld) [#/Vol] 0.23 10*3/uL High [facility] Immature granulocytes/100 WBC (Bld) 4.3 % [facility] Interpretation and review of laboratory results Abnormal [facility] Lymphocytes (Bld) [#/Vol] 0.76 10*3/uL Low [facility] Lymphocytes/100 WBC (Bld) 14.1 % [facility] MCH (RBC) [Entitic mass] 28.2 pg 26.0 - 34.0 pg [facility] MCHC (RBC) [Mass/Vol] 29.3 g/dL Low 30.5 - 36.0 g/dL [facility] MCV (RBC) [Entitic vol] 96.3 fL 80.0 - 100.0 fL [facility] Monocytes (Bld) [#/Vol] 0.48 10*3/uL [facility] Monocytes/100 WBC (Bld) 8.9 % [facility] Neutrophils (Bld) [#/Vol] 3.81 10*3/uL [facility] Neutrophils/100 WBC (Bld) 70.8 % [facility] Nucleated RBC (Bld) [#/Vol] 0.04 10*3/uL High [facility] Nucleated RBC/100 WBC (Bld) [Ratio] 0.7 % /100 WBC [facility] Platelet mean volume (Bld) [Entitic vol] 9.7 fL 9.0 - 12.7 fL [facility] Platelets (Bld) [#/Vol] 140 10*3/uL Low [facility] RBC (Bld) [#/Vol] 3.01 10*6/uL Low 4.20 - 6.0 0 m/uL [facility] WBC (Bld) [#/Vol] 5.38 10*3/uL [facility] Basophils (Bld) [#/Vol] 10*3/uL Normal <0.11 [facility] Comment on above: Order Comment: Speci men Type: BLOOD SPECIMENOrdering Facility: [facility] Address: [address] [place] [address] Performed By: #### 5 7021-8 ####[facility] [id number] [place] [address] [place] Basophils/100 WBC (Bld) 0.4 % Normal [facility] Comment on above: Order Comment: Speci men Type: BLOOD SPECIMENOrdering Facility: [facility] Address: [address] [place] [address] Performed By: #### 5 7021-8 ####[facility] [id number] [place] [address] [place] Differential cell count method Nom (Bld) Auto Normal [facility] Comment on above: Order Comment: Speci men Type: BLOOD SPECIMENOrdering Facility: [facility] Address: [address] [place] [address] Performed By: #### 5 7021-8 ####[facility] [id number] [place] [address] [place] Eosinophils (Bld) [#/Vol] 0.08 10*3/uL Normal <0.46 [facility] Comment on above: Order Comment: Speci men Type: BLOOD SPECIMENOrdering Facility: [facility] Address: [address] [place] [address] Performed By: #### 5 7021-8 ####[facility] MILLWNCLIA [id number] [place] [address] [place] Eosinophils/100 WBC (Bld) 1.5 % Normal [facility] Comment on above: Order Comment: Speci men Type: BLOOD SPECIMENOrdering Facility: [facility] Address: [address] [place] [address] Performed By: #### 5 7021-8 ####[facility] [id number] [place] [address] [place] Erythrocyte distribution width (RBC) [Ratio] 22.1 % High 11.5-15.0 [facility] Comment on above: Order Comment: Speci men Type: BLOOD SPECIMENOrdering Facility: [facility] Address: [address] [place] [address] Performed By: #### 5 7021-8 ####[facility] [id number] [place] [address] [place] Hematocrit (Bld) [Volume fraction] 29.0 % Low 39.0-51.0 [facility] Comment on above: Order Comment: Speci men Type: BLOOD SPECIMENOrdering Facility: [facility] Address: [address] [place] [address] Performed By: #### 5 7021-8 ####[facility] [id number] [place] [address] [place] Hemoglobin (Bld) [Mass/Vol] 8.5 g/dL Low 13.0-17.0 [facility] Comment on above: Order Comment: Speci men Type: BLOOD SPECIMENOrdering Facility: [facility] Address: [address] [place] [address] Performed By: #### 5 7021-8 ####[facility] [id number] [place] [address] [place] Immature granulocytes (Bld) [#/Vol] 0.23 10*3/uL High <0.10 [facility] Comment on above: Order Comment: Speci men Type: BLOOD SPECIMENOrdering Facility: [facility] Address: [address] [place] [address] Performed By: #### 5 7021-8 ####[facility] [id number] [place] [address] [place] Immature granulocytes/100 WBC (Bld) 4.3 % Normal [facility] Comment on above: Order Comment: Speci men Type: BLOOD SPECIMENOrdering Facility: [facility] Address: [address] [place] [address] Performed By: #### 5 7021-8 ####[facility] [id number] [place] [address] [place] Lymphocytes (Bld) [#/Vol] 0.76 10*3/uL Low 1.00-4.00 [facility] Comment on above: Order Comment: Speci men Type: BLOOD SPECIMENOrdering Facility: [facility] Address: [address] [place] [address] Performed By: #### 5 7021-8 ####[facility] [id number] [place] [address] [place] Lymphocytes/100 WBC (Bld) 14.1 % Normal [facility] Comment on above: Order Comment: Speci men Type: BLOOD SPECIMENOrdering Facility: [facility] Address: [address] [place] [address] Performed By: #### 5 7021-8 ####[facility] [id number] [place] [address] [place] MCH (RBC) [Entitic mass] 28.2 pg Normal 26.0-34.0 [facility] Comment on above: Order Comment: Speci men Type: BLOOD SPECIMENOrdering Facility: [facility] Address: [address] [place] [address] Performed By: #### 5 7021-8 ####[facility] JENNIEFALGUNIMckenna [id number] [place] [address] [place] MCHC (RBC) [Mass/Vol] 29.3 g/dL Low 30.5-36.0 [facility] Comment on above: Order Comment: Speci men Type: BLOOD SPECIMENOrdering Facility: [facility] Address: [address] [place] [address] Performed By: #### 5 7021-8 ####[facility] TEDDYBULLHEADBANG [id number] [place] [address] [place] MCV (RBC) [Entitic vol] 96.3 fL Normal 80.0-100.0 [facility] Comment on above: Order Comment: Speci men Type: BLOOD SPECIMENOrdering Facility: [facility] Address: [address] [place] [address] Performed By: #### 5 7021-8 ####[facility] [id number] [place] [address] [place] Monocytes (Bld) [#/Vol] 0.48 10*3/uL Normal <0.87 [facility] Comment on above: Order Comment: Speci men Type: BLOOD SPECIMENOrdering Facility: [facility] Address: [address] [place] [address] Performed By: #### 5 7021-8 ####[facility] [id number] [place] [address] [place] Monocytes/100 WBC (Bld) 8.9 % Normal [facility] Comment on above: Order Comment: Speci men Type: BLOOD SPECIMENOrdering Facility: [facility] Address: [address] [place] [address] Performed By: #### 5 7021-8 ####[facility] MILLWNCLIA [id number] [place] [address] [place] Neutrophils (Bld) [#/Vol] 3.81 10*3/uL Normal 1.45-7.50 [facility] Comment on above: Order Comment: Speci men Type: BLOOD SPECIMENOrdering Facility: [facility] Address: [address] [place] [address] Performed By: #### 5 7021-8 ####[facility] [id number] [place] [address] [place] Neutrophils/100 WBC (Bld) 70.8 % Normal [facility] Comment on above: Order Comment: Speci men Type: BLOOD SPECIMENOrdering Facility: [facility] Address: [address] [place] [address] Performed By: #### 5 7021-8 ####[facility] [id number] [place] [address] [place] Nucleated RBC (Bld) [#/Vol] 0.04 10*3/uL High <0.01 [facility] Comment on above: Order Comment: Speci men Type: BLOOD SPECIMENOrdering Facility: [facility] Address: [address] [place] [address] Performed By: #### 5 7021-8 ####[facility] [id number] [place] [address] [place] Nucleated RBC/100 WBC (Bld) [Ratio] 0.7 /100 WBC Normal [facility] Comment on above: Order Comment: Speci men Type: BLOOD SPECIMENOrdering Facility: [facility] Address: [address] [place] [address] Performed By: #### 5 7021-8 ####[facility] [id number] [place] [address] [place] Platelet mean volume (Bld) [Entitic vol] 9.7 fL Normal 9.0-12.7 [facility] Comment on above: Order Comment: Speci men Type: BLOOD SPECIMENOrdering Facility: [facility] Address: [address] [place] [address] Performed By: #### 5 7021-8 ####[facility] [id number] [place] [address] [place] Platelets (Bld) [#/Vol] 140 10*3/uL Low 150-400 [facility] Comment on above: Order Comment: Speci men Type: BLOOD SPECIMENOrdering Facility: [facility] Address: [address] [place] [address] Performed By: #### 5 7021-8 ####[facility] [id number] [place] [address] [place] RBC (Bld) [#/Vol] 3.01 10*6/uL Low 4.20-6.00 [facility] Comment on above: Order Comment: Speci men Type: BLOOD SPECIMENOrdering Facility: [facility] Address: [address] [place] [address] Performed By: #### 5 7021-8 ####[facility] [id number] [place] [address] [place] WBC (Bld) [#/Vol] 5.38 10*3/uL Normal 3.70-11.00 [facility] Comment on above: Order Comment: Speci men Type: BLOOD SPECIMENOrdering Facility: [facility] Address: [address] [place] [address] Performed By: #### 5 7021-8 ####[facility] ERWNCLIA [id number] [place] [address] [place] CEA SerPl-mCncon 09-14-2024 Carcinoembryonic Ag [Mass/Vol] 18.4 ng/mL High <=2.9 [facility] Comment on above: Order Comment: Speci men Type: BLOOD SPECIMENOrdering Facility: [facility] Address: [address] [place] [address] Result Comment: Carc inoembryonic antigen test is used as an aid in monitoring response to treatment or recurrence in patients with established colorectal, breast, lung, prostatic, pancreatic, and ovarian carcinomas. Clinical correlation is required.The Carcinoembryonic antigen test was performed using the [employer] DXI paramagnetic particle chemiluminescent immunoassay method. Results obtained with different assay methods or kits cannot be used interchangeably. Performed By: #### 2 039-6 ####[facility] LABCLIA [id number] [place] [address] [place] CNOVSPon 09-14-2024 CNOVSP Normal [facility] CNPNon 09-14-2024 CNPN Normal [facility] Comprehensive metabolic 2000 panelOrdered By: Mady Cabello on 09-14-2024 Albumin [Mass/Vol] 3.6 g/dL Low 3.9 - 4.9 g/dL [facility] ALP [Catalytic activity/Vol] 133 U/L High 38 - 113 U/L [facility] ALT [Catalytic activity/Vol] 11 U/L 10 - 54 U/L [facility] Anion gap [Moles/Vol] 9 mmol/L 8 - 15 mmol/L [facility] AST [Catalytic activity/Vol] 14 U/L 14 - 40 U/L [facility] Bilirubin [Mass/Vol] 0.5 mg/dL 0.2 - 1 .3 mg/dL [facility] Calcium [Mass/Vol] 8.9 mg/dL 8.5 - 10. 2 mg/dL [facility] Chloride [Moles/Vol] 102 mmol/L 98 - 10 7 mmol/L [facility] CO2 [Moles/Vol] 27 mmol/L 22 - 30 mmol/L [facility] Creatinine [Mass/Vol] 0.74 mg/dL 0.73 - 1.22 mg/dL [facility] GFR/1.73 sq M.predicted among non-blacks MDRD (S/P/Bld) [Vol rate/Area] 94 mL/min/{1.73_m2} - PINF [facility] Comment on above: Estimated Glomerular Filtration Rate [...] 179 mg/dL High 74 - 99 mg/dL [facility] Comment on above: The [place] Di[employer] Association (ADA) provides guidance for [...] Standards of Medical Care in Diabetes 2016, [place] [employer]. Diabetes Care. 2016.39(Suppl 1). Potassium [Moles/Vol] 3.6 mmol/L Low 3.7 - 5.1 mmol/L [facility] Protein [Mass/Vol] 6.6 g/dL 6.3 - 8.0 g/dL [facility] Sodium [Moles/Vol] 138 mmol/L 136 - 144 mmol/L [facility] Urea nitrogen [Mass/Vol] 12 mg/dL 9 - 24 mg/dL [facility] Comprehensive metabolic 2000 panelon 09-14-2024 Albumin [Mass/Vol] 3.6 g/dL Low 3.9-4.9 [facility] Comment on above: Order Comment: Speci men Type: BLOOD SPECIMENOrdering Facility: [facility] Address: [address] [place] [address] Performed By: #### 1 9123-9, 20189-7 ####[facility] [id number] [address] [place] ALP [Catalytic activity/Vol] 133 U/L High 38-113 [facility] Comment on above: Order Comment: Speci men Type: BLOOD SPECIMENOrdering Facility: [facility] Address: [address] [place] [address] Performed By: #### 1 9123-9, 87069-6 ####[facility] MILLTOWNCLIA [id number] [place] [address] [place] ALT [Catalytic activity/Vol] 11 U/L Normal 10-54 [facility] Comment on above: Order Comment: Speci men Type: BLOOD SPECIMENOrdering Facility: [facility] Address: [address] [place] [address] Performed By: #### 1 9123-9, 98118-0 ####[facility] [id number] [place] [address] [place] Anion gap [Moles/Vol] 9 mmol/L Normal 8-15 [facility] Comment on above: Order Comment: Speci men Type: BLOOD SPECIMENOrdering Facility: [facility] Address: [address] [place] [address] Performed By: #### 1 9123-9, 80178-7 ####[facility] [id number] [place] [address] [place] [facility] AST [Catalytic activity/Vol] 14 U/L Normal 14-40 [facility] Comment on above: Order Comment: Speci men Type: BLOOD SPECIMENOrdering Facility: [facility] Address: [address] [place] [address] Performed By: #### 1 9123-9, 80607-7 ####[facility] [id number] [place] [address] [place] Bilirubin [Mass/Vol] 0.5 mg/dL Normal 0.2-1.3 [facility] Comment on above: Order Comment: Speci men Type: BLOOD SPECIMENOrdering Facility: [facility] Address: [address] [place] [address] Performed By: #### 1 9123-9, 82555-9 ####[facility] ESPINALJEFFERYNiraliFALGUNIA [id number] [place] [address] [place] Calcium [Mass/Vol] 8.9 mg/dL Normal 8.5-10.2 [facility] Comment on above: Order Comment: Speci men Type: BLOOD SPECIMENOrdering Facility: [facility] Address: [address] [place] [address] Performed By: #### 1 9123-9, 83265-1 ####[facility] TEDDYRYAN [id number] [place] [address] [place] Chloride [Moles/Vol] 102 mmol/L Normal 98-107 [facility] Comment on above: Order Comment: Speci men Type: BLOOD SPECIMENOrdering Facility: [facility] Address: [address] [place] [address] Performed By: #### 1 9123-9, 19557-4 ####[facility] TEDDYTRICIAA [id number] [place] [address] [place] CO2 [Moles/Vol] 27 mmol/L Normal 22-30 [facility] Comment on above: Order Comment: Speci men Type: BLOOD SPECIMENOrdering Facility: [facility] Address: [address] [place] [address] Performed By: #### 1 9123-9, 87702-9 ####[facility] TEDDYCELINCLIA [id number] [place] [address] [place] Creatinine [Mass/Vol] 0.74 mg/dL Normal 0.73-1.22 [facility] Comment on above: Order Comment: Speci men Type: BLOOD SPECIMENOrdering Facility: [facility] Address: [address] [place] [address] Performed By: #### 1 9123-9, 94704-9 ####[facility] [id number] [place] [address] [place] Creatinine and Glomerular filtration rate.predicted panel (S/P/Bld) 94 mL/min/1.73m??? Normal >=60 [facility] Comment on above: Order Comment: Willam robles Type: BLOOD SPECIMENOrdering Facility: [facility] Address: [address] [place] [address] Result Comment: Rod mated Glomerular Filtration Rate [...] actual GFR. Performed By: #### 1 9123-9, 41981-7 ####[facility] [id number] [place] [address] [place] Glucose [Mass/Vol] 179 mg/dL High 74-99 [facility] Comment on above: Order Comment: Willam robles Type: BLOOD SPECIMENOrdering Facility: [facility] Address: [address] [place] [address] Result Comment: The [place] Diabetes Association (ADA) provides guidance for cutoff [...] Standards of Medical Care in Diabetes 2016, [place] [employer]. Diabetes Care. 2016.39(Suppl 1). Performed By: #### 1 9123-9, 65717-9 ####[facility] MILLTOWNCLIA [id number] [place] [address] [place] Potassium [Moles/Vol] 3.6 mmol/L Low 3.7-5.1 [facility] Comment on above: Order Comment: Speci men Type: BLOOD SPECIMENOrdering Facility: [facility] Address: [address] [place] [address] Performed By: #### 1 9123-9, 51103-1 ####[facility] MILLTOWNCLIA [id number] [place] [address] [place] Protein [Mass/Vol] 6.6 g/dL Normal 6.3-8.0 [facility] Comment on above: Order Comment: Speci men Type: BLOOD SPECIMENOrdering Facility: [facility] Address: [address] [place] [address] Performed By: #### 1 9123-9, ####[facility] MILLWNCLIA [id number] [place] [address] [place] Sodium [Moles/Vol] 138 mmol/L Normal 136-144 [facility] Comment on above: Order Comment: Speci men Type: BLOOD SPECIMENOrdering Facility: [facility] Address: [address] [place] [address] Performed By: #### 1 9123-9, ####[facility] MILLTOWNCLIA [id number] [place] [address] [place] Urea nitrogen [Mass/Vol] 12 mg/dL Normal 9-24 [facility] Comment on above: Order Comment: Speci men Type: BLOOD SPECIMENOrdering Facility: [facility] Address: [address] [place] [address] Performed By: #### 1 9123-9, 28209-7 ####[facility] MILLTOWNCLIA [id number] [place] [address] [place] MAGNESIUMon 09-14-2024 Magnesium [Mass/Vol] 1.6 mg/dL Low 1.7 - 2 .3 mg/dL [facility] Magnesium SerPl-mCncon 09-14 Magnesium [Mass/Vol] 1.6 mg/dL Low 1.7-2.3 [facility] Comment on above: Order Comment: Speci men Type: BLOOD SPECIMENOrdering Facility: [facility] Address: [address] [place] [address] Performed By: #### 1 9123-9, 12155-3 ####[facility] [id number] [address] [place] No Panel InformationOrdered By: Mady Cabello on 09-14-2024 Interpretation and review of laboratory results Abnormal [facility] CBC W Auto Differential pane l (Bld)on 08-31-2024 Anisocytosis Ql (Bld) Present [facility] Basophils (Bld) [#/Vol] 0 10*3/uL [facility]F [facility] Basophils/100 WBC (Bld) 0 % [facility] Dacrocytes LM Ql (Bld) Few [facility] Differential cell count method Nom (Bld) Manual [facility] Eosinophils (Bld) [#/Vol] 0.04 10*3/uL [facility]F [facility] Eosinophils/100 WBC (Bld) 1 % [facility] Erythrocyte distribution width (RBC) [Ratio] 21.5 % High 11.5 - 15.0 % [facility] Hematocrit (Bld) [Volume fraction] 30.2 % Low 39.0 - 51.0 % [facility] Hemoglobin (Bld) [Mass/Vol] 9 g/dL Low 13.0 - 17.0 g/dL [facility] Interpretation and review of laboratory results Abnormal [facility] Lymphocytes (Bld) [#/Vol] 1.01 10*3/uL [facility] Lymphocytes/100 WBC (Bld) 25 % [facility] MCH (RBC) [Entitic mass] 28.5 pg 26.0 - 34.0 pg [facility] MCHC (RBC) [Mass/Vol] 29.8 g/dL Low 30.5 - 36.0 g/dL [facility] MCV (RBC) [Entitic vol] 95.6 fL 80.0 - 100.0 fL [facility] [place] % 1 % [facility] Monocytes (Bld) [#/Vol] 0.32 10*3/uL NINF [facility] Monocytes/100 WBC (Bld) 8 % [facility] Myelo % 2 % [facility] Neutrophils (Bld) [#/Vol] 2.55 10*3/uL [facility] Neutrophils/100 WBC (Bld) 63 % [facility] Nucleated RBC (Bld) [#/Vol] 0.08 10*3/uL High NINF [facility] Nucleated RBC/100 WBC (Bld) [Ratio] 2 % /100 WBC [facility] Ovalocytes LM Ql (Bld) Few [facility] Platelet mean volume (Bld) [Entitic vol] 9.5 fL 9.0 - 12.7 fL [facility] Platelets (Bld) [#/Vol] 137 10*3/uL Low [facility] Platelets Estimate (Bld) [#/Vol] Decreased [facility] Polychromasia LM Ql (Bld) Slight [facility] RBC (Bld) [#/Vol] 3.16 10*6/uL Low 4.20 - 6.0 0 m/uL [facility] Red Cell Morph Reviewed: see result s of individual morphologies [facility] WBC (Bld) [#/Vol] 4.04 10*3/uL [facility] WBC Left Shift Ql (Bld) Present [facility] This is an appended report. These results have been appended to a previously verified report. [facility] Anisocytosis Ql (Bld) Present Normal [facility] Comment on above: Order Comment: Speci men Type: BLOOD SPECIMENOrdering Facility: [facility] Address: [address] [place] [address] Performed By: #### 5 7021-8 ####[facility] BUENOBANG [id number] [place] [id number] [place] [address] LABORATORYCLIA [id number] [address] [place] Basophils (Bld) [#/Vol] 0.00 10*3/uL Normal <0.11 [facility] Comment on above: Order Comment: Speci men Type: BLOOD SPECIMENOrdering Facility: [facility] Address: [address] [place] [address] Performed By: #### 5 7021-8 ####[facility] ERWNCLIA [id number] [address] LABORATORYCLIA [id number] [address] [place] [facility] Basophils/100 WBC (Bld) 0.0 % Normal [facility] Comment on above: Order Comment: Speci men Type: BLOOD SPECIMENOrdering Facility: [facility] Address: [address] [place] [address] Performed By: #### 5 7021-8 ####[facility] [id number] [address] LABORATORYCLIA [id number] [address] Dacrocytes LM Ql (Bld) Few Normal [facility] Comment on above: Order Comment: Speci men Type: BLOOD SPECIMENOrdering Facility: [facility] Address: [address] [place] [address] Performed By: #### 5 7021-8 ####[facility] [id number] [address] LABORATORYCLIA [id number] [address] [place] Differential cell count method Nom (Bld) Manual Normal [facility] Comment on above: Order Comment: Speci men Type: BLOOD SPECIMENOrdering Facility: [facility] Address: [address] [place] [address] Performed By: #### 5 7021-8 ####[facility] MILLTOWNCLIA [id number] [address] LABORATORYCLIA [id number] [place] [address] [place] Eosinophils (Bld) [#/Vol] 0.04 10*3/uL Normal <0.46 [facility] Comment on above: Order Comment: Speci men Type: BLOOD SPECIMENOrdering Facility: [facility] Address: [address] [place] [address] Performed By: #### 5 7021-8 ####[facility] ERWNCLIA [id number] [address] LABORATORYCLIA [id number] [place] [address] [place] Eosinophils/100 WBC (Bld) 1.0 % Normal [facility] Comment on above: Order Comment: Speci men Type: BLOOD SPECIMENOrdering Facility: [facility] Address: [address] [place] [address] Performed By: #### 5 7021-8 ####[facility]IDANCLIA [id number] [address] LABORATORYCLIA [id number] [place] [address] [place] Erythrocyte distribution width (RBC) [Ratio] 21.5 % High 11.5-15.0 [facility] Comment on above: Order Comment: Speci men Type: BLOOD SPECIMENOrdering Facility: [facility] Address: [address] [place] [address] Performed By: #### 5 7021-8 ####[facility] ERWNCLIA [id number] [address] LABORATORYCLIA [id number] [place] [address] [place] Hematocrit (Bld) [Volume fraction] 30.2 % Low 39.0-51.0 [facility] Comment on above: Order Comment: Speci men Type: BLOOD SPECIMENOrdering Facility: [facility] Address: [address] [place] [address] Performed By: #### 5 7021-8 ####[facility]ITALTOWNCLIA [id number] [address] LABORATORYCLIA [id number] [place] [address] [place] Hemoglobin (Bld) [Mass/Vol] 9.0 g/dL Low 13.0-17.0 [facility] Comment on above: Order Comment: Speci men Type: BLOOD SPECIMENOrdering Facility: [facility] Address: [address] [place] [address] Performed By: #### 5 7021-8 ####[facility] ERWVTLIA [id number] [address] LABORATORYCLIA [id number] [place] [address] [place] Lymphocytes (Bld) [#/Vol] 1.01 10*3/uL Normal 1.00-4.00 [facility] Comment on above: Order Comment: Speci men Type: BLOOD SPECIMENOrdering Facility: [facility] Address: [address] [place] [address] Performed By: #### 5 7021-8 ####[facility]ANCLIA [id number] [address] LABORATORYCLIA [id number] [address] [place] Lymphocytes/100 WBC (Bld) 25.0 % Normal [facility] Comment on above: Order Comment: Speci men Type: BLOOD SPECIMENOrdering Facility: [facility] Address: [address] [place] [address] Performed By: #### 5 7021-8 ####[facility] MILLTOWNCLIA [id number] [address] LABORATORYCLIA [id number] [place] [address] [facility] MCH (RBC) [Entitic mass] 28.5 pg Normal 26.0-34.0 [facility] Comment on above: Order Comment: Speci men Type: BLOOD SPECIMENOrdering Facility: [facility] Address: [address] [place] [address] Performed By: #### 5 7021-8 ####[facility]ANCLIA [id number] [address] LABORATORYCLIA [id number] [place] [address] [place] [facility] MCHC (RBC) [Mass/Vol] 29.8 g/dL Low 30.5-36.0 [facility] Comment on above: Order Comment: Speci men Type: BLOOD SPECIMENOrdering Facility: [facility] Address: [address] [place] [address] Performed By: #### 5 7021-8 ####[facility]ANCLIA [id number] [address] LABORATORYCLIA [id number] [address] [place] [facility] MCV (RBC) [Entitic vol] 95.6 fL Normal 80.0-100.0 [facility] Comment on above: Order Comment: Speci men Type: BLOOD SPECIMENOrdering Facility: [facility] Address: [address] [place] [address] Performed By: #### 5 7021-8 ####[facility] FL[facility]IDANCA [id number] [address] [facility] LABORATORYCLIA [id number] [place] [address] [place] Metamyelocytes/100 WBC (Bld) 1.0 % Normal [facility] Comment on above: Order Comment: Speci men Type: BLOOD SPECIMENOrdering Facility: [facility] Address: [address] [place] [address] Performed By: #### 5 7021-8 ####[facility] MILLTOWNCLIA [id number] [address] LABORATORYCLIA [id number] [place] [address] [place] Monocytes (Bld) [#/Vol] 0.32 10*3/uL Normal <0.87 [facility] Comment on above: Order Comment: Speci men Type: BLOOD SPECIMENOrdering Facility: [facility] Address: [address] [place] [address] Performed By: #### 5 7021-8 ####[facility] MILLTOWNCLIA [id number] [address] LABORATORYCLIA [id number] [place] [address] [place] Monocytes/100 WBC (Bld) 8.0 % Normal [facility] Comment on above: Order Comment: Speci men Type: BLOOD SPECIMENOrdering Facility: [facility] Address: [address] [place] [address] Performed By: #### 5 7021-8 ####[facility] MILLTOWNCLIA [id number] [address] LABORATORYCLIA [id number] [place] [address] [place] MYELO% 2.0 % Normal [facility] Comment on above: Order Comment: Speci men Type: BLOOD SPECIMENOrdering Facility: [facility] Address: [address] [place] [address] Performed By: #### 5 7021-8 ####[facility] XIMENAWNCLIA [id number] [address] LABORATORYCLIA [id number] [place] [address] [place] Neutrophils (Bld) [#/Vol] 2.55 10*3/uL Normal 1.45-7.50 [facility] Comment on above: Order Comment: Speci men Type: BLOOD SPECIMENOrdering Facility: [facility] Address: [address] [place] [address] Performed By: #### 5 7021-8 ####[facility] FLORIDAGIANNALIA [id number] [address] LABORATORYCLIA [id number] [place] [address] [place] Neutrophils/100 WBC (Bld) 63.0 % Normal [facility] Comment on above: Order Comment: Speci men Type: BLOOD SPECIMENOrdering Facility: [facility] Address: [address] [place] [address] Performed By: #### 5 7021-8 ####[facility]IDANCLIA [id number] [address] LABORATORYCLIA [id number] [place] [address] [place] Nucleated RBC (Bld) [#/Vol] 0.08 10*3/uL High <0.01 [facility] Comment on above: Order Comment: Speci men Type: BLOOD SPECIMENOrdering Facility: [facility] Address: [address] [place] [address] Performed By: #### 5 7021-8 ####[facility] ERWNCLIA [id number] [address] LABORATORYCLIA [id number] [place] [address] [place] Nucleated RBC/100 WBC (Bld) [Ratio] 2.0 /100 WBC Normal [facility] Comment on above: Order Comment: Speci men Type: BLOOD SPECIMENOrdering Facility: [facility] Address: [address] [place] [address] Performed By: #### 5 7021-8 ####[facility] MILLTOWNCLIA [id number] [address] LABORATORYCLIA [id number] [place] [address] [place] Ovalocytes LM Ql (Bld) Few Normal [facility] Comment on above: Order Comment: Speci men Type: BLOOD SPECIMENOrdering Facility: [facility] Address: [address] [place] [address] Performed By: #### 5 7021-8 ####[facility] ERWNCLIA [id number] [address] LABORATORYCLIA [id number] [place] [address] [place] Platelet mean volume (Bld) [Entitic vol] 9.5 fL Normal 9.0-12.7 [facility] Comment on above: Order Comment: Speci men Type: BLOOD SPECIMENOrdering Facility: [facility] Address: [address] [place] [address] Performed By: #### 5 7021-8 ####[facility] MILLWNCLIA [id number] [address] LABORATORYCLIA [id number] [place] [address] [place] Platelets (Bld) [#/Vol] 137 10*3/uL Low 150-400 [facility] Comment on above: Order Comment: Speci men Type: BLOOD SPECIMENOrdering Facility: [facility] Address: [address] [place] [address] Performed By: #### 5 7021-8 ####[facility] TEDDYTOWNCLIA [id number] [address] LABORATORYCLIA [id number] [place] [address] [place] Platelets Estimate (Bld) [#/Vol] Decreased Normal [facility] Comment on above: Order Comment: Speci men Type: BLOOD SPECIMENOrdering Facility: [facility] Address: [address] [place] [address] Performed By: #### 5 7021-8 ####[facility]ITALLIA [id number] [address] LABORATORYCLIA [id number] [place] [address] [place] Polychromasia LM Ql (Bld) Slight Normal [facility] Comment on above: Order Comment: Speci men Type: BLOOD SPECIMENOrdering Facility: [facility] Address: [address] [place] [address] Performed By: #### 5 7021-8 ####[facility] ERWNCLIA [id number] [address] LABORATORYCLIA [id number] [place] [address] [place] RBC (Bld) [#/Vol] 3.16 10*6/uL Low 4.20-6.00 [facility] Comment on above: Order Comment: Speci men Type: BLOOD SPECIMENOrdering Facility: [facility] Address: [address] [place] [address] Performed By: #### 5 7021-8 ####[facility] MILLWNCLIA [id number] [address] LABORATORYCLIA [id number] [place] [address] [place] [facility] RED CELL MORPH Reviewed: see result s of individual morphologies Normal [facility] Comment on above: Order Comment: Speci men Type: BLOOD SPECIMENOrdering Facility: [facility] Address: [address] [place] [address] Performed By: #### 5 7021-8 ####[facility]ITALLIA [id number] [address] LABORATORYCLIA [id number] [place] [address] [place] WBC (Bld) [#/Vol] 4.04 10*3/uL Normal 3.70-11.00 [facility] Comment on above: Order Comment: Speci men Type: BLOOD SPECIMENOrdering Facility: [facility] Address: [address] [place] [address] Performed By: #### 5 7021-8 ####[facility]ENTERA [id number] [address] LABORATORYCLIA [id number] [place] [address] [place] WBC Left Shift Ql (Bld) Present Normal [facility] Comment on above: Order Comment: Speci men Type: BLOOD SPECIMENOrdering Facility: [facility] Address: [address] [place] [address] Performed By: #### 5 7021-8 ####[facility]ENTERA [id number] [address] LABORATORYCLIA [id number] [place] [address] [place] CEA SerPl-mCncon 08-31-2024 Carcinoembryonic Ag [Mass/Vol] 21.0 ng/mL High <=2.9 [facility] Comment on above: Order Comment: Speci men Type: BLOOD SPECIMENOrdering Facility: [facility] Address: [address] [place] [address] Result Comment: Carc inoembryonic antigen test is [...] used interchangeably. Performed By: #### 2 039-6 ####[facility] LABCLIA [id number] [place] [address] [place] Comprehensive metabolic 2000 panelOrdered By: Cody Hurtado on 08-31-2024 Albumin [Mass/Vol] 3.5 g/dL Low 3.9 - 4.9 g/dL [facility] ALP [Catalytic activity/Vol] 110 U/L 38 - 113 U/L [facility] ALT [Catalytic activity/Vol] 9 U/L Low 10 - 54 U/L [facility] Anion gap [Moles/Vol] 8 mmol/L 8 - 15 mmol/L [facility] AST [Catalytic activity/Vol] 12 U/L Low 14 - 40 U/L [facility] Bilirubin [Mass/Vol] 0.4 mg/dL 0.2 - 1 .3 mg/dL [facility] Calcium [Mass/Vol] 8.8 mg/dL 8.5 - 10. 2 mg/dL [facility] Chloride [Moles/Vol] 101 mmol/L 98 - 10 7 mmol/L [facility] CO2 [Moles/Vol] 28 mmol/L 22 - 30 mmol/L [facility] Creatinine [Mass/Vol] 0.67 mg/dL Low 0.73 - 1.22 mg/dL [facility] GFR/1.73 sq M.predicted among non-blacks MDRD (S/P/Bld) [Vol rate/Area] 97 mL/min/{1.73_m2} - PINF [facility] Comment on above: Estimated Glomerular Filtration Rate [...] 188 mg/dL High 74 - 99 mg/dL [facility] Comment on above: The [place] Diabete s Association (ADA) provides guidance for [...] Standards of Medical Care in Diabetes 2016, [place] [employer]. Diabetes Care. 2016.39(Suppl 1). Potassium [Moles/Vol] 3.5 mmol/L Low 3.7 - 5.1 mmol/L [facility] Protein [Mass/Vol] 6.6 g/dL 6.3 - 8.0 g/dL [facility] Sodium [Moles/Vol] 137 mmol/L 136 - 144 mmol/L [facility] Urea nitrogen [Mass/Vol] 15 mg/dL 9 - 24 mg/dL [facility] Comprehensive metabolic 2000 panelon 08-31-2024 Albumin [Mass/Vol] 3.5 g/dL Low 3.9-4.9 [facility] Comment on above: Order Comment: Willam robles Type: BLOOD SPECIMENOrdering Facility: [facility] Address: [address] [place] [address] Performed By: #### 2 4323-8, 93631-1 ####[facility] CLA[facility] HOSPITALMckenna [id number] [place] [id number] [place] ALP [Catalytic activity/Vol] 110 U/L Normal 38-113 [facility] Comment on above: Order Comment: Willam robles Type: BLOOD SPECIMENOrdering Facility: [facility] Address: [address] [place] [address] Performed By: #### 2 4323-8, 08921-2 ####[facility] GRETCHENA [id number] [address] [place] ALT [Catalytic activity/Vol] 9 U/L Low 10-54 [facility] Comment on above: Order Comment: Speci men Type: BLOOD SPECIMENOrdering Facility: [facility] Address: [address] [place] [address] Performed By: #### 2 4323-8, ####[facility] TEDDYBULLHEADFALGUNIA [id number] [place] [address] [place] Anion gap [Moles/Vol] 8 mmol/L Normal 8-15 [facility] Comment on above: Order Comment: Speci men Type: BLOOD SPECIMENOrdering Facility: [facility] Address: [address] [place] [address] Performed By: #### 2 4323-8, ####[facility] FLORIDAFALGUNIA [id number] [place] [address] [place] AST [Catalytic activity/Vol] 12 U/L Low 14-40 [facility] Comment on above: Order Comment: Speci men Type: BLOOD SPECIMENOrdering Facility: [facility] Address: [address] [place] [address] Performed By: #### 2 4323-8, ####[facility] ERWNCLIA [id number] [place] [address] [place] Bilirubin [Mass/Vol] 0.4 mg/dL Normal 0.2-1.3 [facility] Comment on above: Order Comment: Speci men Type: BLOOD SPECIMENOrdering Facility: [facility] Address: [address] [place] [address] Performed By: #### 2 4323-, ####[facility] MILLTOWNCLIA [id number] [place] [address] [place] Calcium [Mass/Vol] 8.8 mg/dL Normal 8.5-10.2 [facility] Comment on above: Order Comment: Speci men Type: BLOOD SPECIMENOrdering Facility: [facility] Address: [address] [place] [address] Performed By: #### 2 432-8, ####[facility] MILLTOWNCLIA [id number] [place] [address] [place] Chloride [Moles/Vol] 101 mmol/L Normal 98-107 [facility] Comment on above: Order Comment: Speci men Type: BLOOD SPECIMENOrdering Facility: [facility] Address: [address] [place] [address] Performed By: #### 2 4328, ####[facility]PITALLIA [id number] [place] [address] [place] CO2 [Moles/Vol] 28 mmol/L Normal 22-30 [facility] Comment on above: Order Comment: Speci men Type: BLOOD SPECIMENOrdering Facility: [facility] Address: [address] [place] [address] Performed By: #### 2 43238, ####[facility] MILLWNCLIA [id number] [place] [address] [place] Creatinine [Mass/Vol] 0.67 mg/dL Low 0.73-1.22 [facility] Comment on above: Order Comment: Speci men Type: BLOOD SPECIMENOrdering Facility: [facility] Address: [address] [place], [place] [address] Performed By: #### 2 4323-8, ####[facility] MILLBULLHEADGIANNALIA [id number] [place] [address] [place] Creatinine and Glomerular filtration rate.predicted panel (S/P/Bld) 97 mL/min/1.73m??? Normal >=60 [facility] Comment on above: Order Comment: Willam robles Type: BLOOD SPECIMENOrdering Facility: [facility] Address: [address] [place] [address] Result Comment: Rod mated Glomerular Filtration Rate [...] actual GFR. Performed By: #### 2 4323-8, 12155-6 ####[facility] [id number] [place] [address] [place] Glucose [Mass/Vol] 188 mg/dL High 74-99 [facility] Comment on above: Order Comment: Willam robles Type: BLOOD SPECIMENOrdering Facility: [facility] Address: [address] [place] [address] Result Comment: The [place] Diabetes Association (ADA) provides guidance for cutoff [...] Standards of Medical Care in Diabetes 2016, [place] [employer]. Diabetes Care. 2016.39(Suppl 1). Performed By: #### 2 4323-8, 47759-0 ####[facility] HOSPITALLI [id number] [place] [address] [place] Potassium [Moles/Vol] 3.5 mmol/L Low 3.7-5.1 [facility] Comment on above: Order Comment: Speci men Type: BLOOD SPECIMENOrdering Facility: [facility] Address: [address] [place] [address] Performed By: #### 2 4323-8, ####[facility] ERGANESH [id number] [place] [id number] [place] Protein [Mass/Vol] 6.6 g/dL Normal 6.3-8.0 [facility] Comment on above: Order Comment: Speci men Type: BLOOD SPECIMENOrdering Facility: [facility] Address: [address] [place] [address] Performed By: #### 2 4323-8, ####[facility] ERGANESH [id number] [place] [address] [place] Sodium [Moles/Vol] 137 mmol/L Normal 136-144 [facility] Comment on above: Order Comment: Speci men Type: BLOOD SPECIMENOrdering Facility: [facility] Address: [address] [place] [address] Performed By: #### 2 4323-8, ####[facility]IDABANG [id number] [place] [address] [place] Urea nitrogen [Mass/Vol] 15 mg/dL Normal 9-24 [facility] Comment on above: Order Comment: Speci men Type: BLOOD SPECIMENOrdering Facility: [facility] Address: [address] [place] [address] Performed By: #### 2 4323-8, ####[facility] FLORIDANCLIA [id number] [place] [id number] [place] MAGNESIUMon 08-31-2024 Magnesium [Mass/Vol] 1.6 mg/dL Low 1.7 - 2 .3 mg/dL [facility] Magnesium SerPl-mCncon 08-31 Magnesium [Mass/Vol] 1.6 mg/dL Low 1.7-2.3 [facility] Comment on above: Order Comment: Speci men Type: BLOOD SPECIMENOrdering Facility: [facility] Address: [address] [place] [address] Performed By: #### 2 4323-8, 15587-7 ####[facility] [id number] [place] [address] [place] No Panel Informationon 08-31 Interpretation and review of laboratory results Abnormal [facility] UA DIP, URINE (POC)on 2024 BILIRUBIN UA (POCT) Negative Negative [facility] CLARITY UA (POCT) Clear [facility] COLOR UA (POCT) Yellow [facility] GLUCOSE UA (POCT) 500 mg/dL Abnormal Negative [facility] Hemoglobin Ql (U) Negative Negative [facility] Interpretation and review of laboratory results Abnormal [facility] KETONE UA (POCT) Negative Negative mg/dL [facility] LEUKOCYTES UA (POCT) Negative Negative [facility] NITRITE UA (POCT) Negative Negative [facility] PH UA (POCT) 6 4.5 - 8.0 [facility] Protein Ql (U) Negative Negative mg/dL [facility] SPECIFIC GRAVITY UA (POCT) 1.01 1.005 - 1.030 [facility] UROBILINOGEN UA (POCT) 1 Normal E.U./dL [facility] Location:[facility], [address], [place], [place], [id number] [place] [address] POINT OF CARE [facility] CBC W Auto Differential pane l (Bld)on 08-17-2024 Basophils (Bld) [#/Vol] NINF [facility] Basophils/100 WBC (Bld) 0.8 % [facility] Differential cell count method Nom (Bld) Auto [facility] Eosinophils (Bld) [#/Vol] 0.1 10*3/uL NINF [facility] Eosinophils/100 WBC (Bld) 3.8 % [facility] Erythrocyte distribution width (RBC) [Ratio] 22.1 % High 11.5 - 15.0 % [facility] Hematocrit (Bld) [Volume fraction] 29.9 % Low 39.0 - 51.0 % [facility] Hemoglobin (Bld) [Mass/Vol] 8.9 g/dL Low 13.0 - 17.0 g/dL [facility] Immature granulocytes (Bld) [#/Vol] NINF [facility] Immature granulocytes/100 WBC (Bld) 0.8 % [facility] Interpretation and review of laboratory results Abnormal [facility] Lymphocytes (Bld) [#/Vol] 0.64 10*3/uL Low [facility] Lymphocytes/100 WBC (Bld) 24.4 % [facility] MCH (RBC) [Entitic mass] 29.2 pg 26.0 - 34.0 pg [facility] MCHC (RBC) [Mass/Vol] 29.8 g/dL Low 30.5 - 36.0 g/dL [facility] MCV (RBC) [Entitic vol] 98 fL 80.0 - 100.0 fL [facility] Monocytes (Bld) [#/Vol] 0.37 10*3/uL [facility] Monocytes/100 WBC (Bld) 14.1 % [facility] Neutrophils (Bld) [#/Vol] 1.47 10*3/uL [facility] Neutrophils/100 WBC (Bld) 56.1 % [facility] Nucleated RBC (Bld) [#/Vol] [facility] Nucleated RBC/100 WBC (Bld) [Ratio] 0 % /100 WBC [facility] Platelet mean volume (Bld) [Entitic vol] 9.6 fL 9.0 - 12.7 fL [facility] Platelets (Bld) [#/Vol] 127 10*3/uL Low [facility] RBC (Bld) [#/Vol] 3.05 10*6/uL Low 4.20 - 6.0 0 m/uL [facility] WBC (Bld) [#/Vol] 2.62 10*3/uL Low [facility] Basophils (Bld) [#/Vol] 10*3/uL Normal <0.11 [facility] Comment on above: Order Comment: Speci men Type: BLOOD SPECIMENOrdering Facility: [facility] Address: [address] [place] [address] Performed By: #### 5 7021-8 ####[facility] TEDDYWNCLIA [id number] [place] [address] [place] Basophils/100 WBC (Bld) 0.8 % Normal [facility] Comment on above: Order Comment: Speci men Type: BLOOD SPECIMENOrdering Facility: [facility] Address: [address] [place] [address] Performed By: #### 5 7021-8 ####[facility]ITALLIA [id number] [place] [address] [place] Differential cell count method Nom (Bld) Auto Normal [facility] Comment on above: Order Comment: Speci men Type: BLOOD SPECIMENOrdering Facility: [facility] Address: [address] [place] [address] Performed By: #### 5 7021-8 ####[facility]ITALLIA [id number] [place] [address] [place] Eosinophils (Bld) [#/Vol] 0.10 10*3/uL Normal <0.46 [facility] Comment on above: Order Comment: Speci men Type: BLOOD SPECIMENOrdering Facility: [facility] Address: [address] [place] [address] Performed By: #### 5 7021-8 ####[facility] ERWNCLIA [id number] [place] [address] [place] Eosinophils/100 WBC (Bld) 3.8 % Normal [facility] Comment on above: Order Comment: Speci men Type: BLOOD SPECIMENOrdering Facility: [facility] Address: [address] [place] [address] Performed By: #### 5 7021-8 ####[facility]IDANCLIA [id number] [place] [address] [place] Erythrocyte distribution width (RBC) [Ratio] 22.1 % High 11.5-15.0 [facility] Comment on above: Order Comment: Speci men Type: BLOOD SPECIMENOrdering Facility: [facility] Address: [address] [place] [address] Performed By: #### 5 7021-8 ####[facility] [id number] [place] [address] [place] Hematocrit (Bld) [Volume fraction] 29.9 % Low 39.0-51.0 [facility] Comment on above: Order Comment: Speci men Type: BLOOD SPECIMENOrdering Facility: [facility] Address: [address] [place] [address] Performed By: #### 5 7021-8 ####[facility] [id number] [place] [address] [place] Hemoglobin (Bld) [Mass/Vol] 8.9 g/dL Low 13.0-17.0 [facility] Comment on above: Order Comment: Speci men Type: BLOOD SPECIMENOrdering Facility: [facility] Address: [address] [place] [address] Performed By: #### 5 7021-8 ####[facility] [id number] [place] [address] [place] Immature granulocytes (Bld) [#/Vol] 10*3/uL Normal <0.10 [facility] Comment on above: Order Comment: Speci men Type: BLOOD SPECIMENOrdering Facility: [facility] Address: [address] [place] [address] Performed By: #### 5 7021-8 ####[facility] FL[facility]IDANCLI [id number] [place] [address] [place] Immature granulocytes/100 WBC (Bld) 0.8 % Normal [facility] Comment on above: Order Comment: Speci men Type: BLOOD SPECIMENOrdering Facility: [facility] Address: [address] [place] [address] Performed By: #### 5 7021-8 ####[facility] TEDDYGANESH [id number] [place] [address] [place] Lymphocytes (Bld) [#/Vol] 0.64 10*3/uL Low 1.00-4.00 [facility] Comment on above: Order Comment: Speci men Type: BLOOD SPECIMENOrdering Facility: [facility] Address: [address] [place] [address] Performed By: #### 5 7021-8 ####[facility] [id number] [place] [address] [place] Lymphocytes/100 WBC (Bld) 24.4 % Normal [facility] Comment on above: Order Comment: Speci men Type: BLOOD SPECIMENOrdering Facility: [facility] Address: [address] [place] [address] Performed By: #### 5 7021-8 ####[facility] FLORIDANCMckenna [id number] [place] [address] [place] MCH (RBC) [Entitic mass] 29.2 pg Normal 26.0-34.0 [facility] Comment on above: Order Comment: Speci men Type: BLOOD SPECIMENOrdering Facility: [facility] Address: [address] [place] [address] Performed By: #### 5 7021-8 ####[facility] FL[facility]IDANCLIA [id number] [place] [address] [place] MCHC (RBC) [Mass/Vol] 29.8 g/dL Low 30.5-36.0 [facility] Comment on above: Order Comment: Speci men Type: BLOOD SPECIMENOrdering Facility: [facility] Address: [address] [place] [address] Performed By: #### 5 7021-8 ####[facility] ERWNCLIA [id number] [place] [address] [place] MCV (RBC) [Entitic vol] 98.0 fL Normal 80.0-100.0 [facility] Comment on above: Order Comment: Speci men Type: BLOOD SPECIMENOrdering Facility: [facility] Address: [address] [place] [address] Performed By: #### 5 7021-8 ####[facility]ALLIA [id number] [place] [address] [place] Monocytes (Bld) [#/Vol] 0.37 10*3/uL Normal <0.87 [facility] Comment on above: Order Comment: Speci men Type: BLOOD SPECIMENOrdering Facility: [facility] Address: [address] [place] [address] Performed By: #### 5 7021-8 ####[facility]ENTERA [id number] [place] [address] [place] Monocytes/100 WBC (Bld) 14.1 % Normal [facility] Comment on above: Order Comment: Speci men Type: BLOOD SPECIMENOrdering Facility: [facility] Address: [address] [place] [address] Performed By: #### 5 7021-8 ####[facility]ENTERA [id number] [place] [address] [place] Neutrophils (Bld) [#/Vol] 1.47 10*3/uL Normal 1.45-7.50 [facility] Comment on above: Order Comment: Speci men Type: BLOOD SPECIMENOrdering Facility: [facility] Address: [address] [place] [address] Performed By: #### 5 7021-8 ####[facility] FL[facility]IDANCLIA [id number] [place] [address] [place] Neutrophils/100 WBC (Bld) 56.1 % Normal [facility] Comment on above: Order Comment: Speci men Type: BLOOD SPECIMENOrdering Facility: [facility] Address: [address] [place] [address] Performed By: #### 5 7021-8 ####[facility]CL[facility] [id number] [place] [address] [place] Nucleated RBC (Bld) [#/Vol] 10*3/uL Normal <0.01 [facility] Comment on above: Order Comment: Speci men Type: BLOOD SPECIMENOrdering Facility: [facility] Address: [address] [place] [address] Performed By: #### 5 7021-8 ####[facility] [id number] [place] [address] [place] Nucleated RBC/100 WBC (Bld) [Ratio] 0.0 /100 WBC Normal [facility] Comment on above: Order Comment: Speci men Type: BLOOD SPECIMENOrdering Facility: [facility] Address: [address] [place] [address] Performed By: #### 5 7021-8 ####[facility] [id number] [place] [address] [place] Platelet mean volume (Bld) [Entitic vol] 9.6 fL Normal 9.0-12.7 [facility] Comment on above: Order Comment: Speci men Type: BLOOD SPECIMENOrdering Facility: [facility] Address: [address] [place] [address] Performed By: #### 5 7021-8 ####[facility] [id number] [place] [address] [place] Platelets (Bld) [#/Vol] 127 10*3/uL Low 150-400 [facility] Comment on above: Order Comment: Speci men Type: BLOOD SPECIMENOrdering Facility: [facility] Address: [address] [place] [address] Performed By: #### 5 7021-8 ####[facility]IDANCLIA [id number] [place] [address] [place] RBC (Bld) [#/Vol] 3.05 10*6/uL Low 4.20-6.00 [facility] Comment on above: Order Comment: Speci men Type: BLOOD SPECIMENOrdering Facility: [facility] Address: [address] [place] [address] Performed By: #### 5 7021-8 ####[facility]IDANCLIA [id number] [place] [address] [place] WBC (Bld) [#/Vol] 2.62 10*3/uL Low 3.70-11.00 [facility] Comment on above: Order Comment: Speci men Type: BLOOD SPECIMENOrdering Facility: [facility] Address: [address] [place] [address] Performed By: #### 5 7021-8 ####[facility]IDANCLIA [id number] [place] [address] [place] CNOVSPon 08-17-2024 CNOVSP Normal [facility] metabolic 2000 panelOrdered By: Cody Hurtado on 08-17-2024 Albumin [Mass/Vol] 3.8 g/dL Low 3.9 - 4.9 g/dL [facility] ALP [Catalytic activity/Vol] 103 U/L 38 - 113 U/L [facility] ALT [Catalytic activity/Vol] 10 U/L 10 - 54 U/L [facility] Anion gap [Moles/Vol] 9 mmol/L 8 - 15 mmol/L [facility] AST [Catalytic activity/Vol] 14 U/L 14 - 40 U/L [facility] Bilirubin [Mass/Vol] 0.5 mg/dL 0.2 - 1 .3 mg/dL [facility] Calcium [Mass/Vol] 9 mg/dL 8.5 - 10. 2 mg/dL [facility] Chloride [Moles/Vol] 100 mmol/L 98 - 10 7 mmol/L [facility] CO2 [Moles/Vol] 28 mmol/L 22 - 30 mmol/L [facility] Creatinine [Mass/Vol] 0.74 mg/dL 0.73 - 1.22 mg/dL [facility] GFR/1.73 sq M.predicted among non-blacks MDRD (S/P/Bld) [Vol rate/Area] 94 mL/min/{1.73_m2} - PINF [facility] Comment on above: Estimated Glomerular Filtration Rate [...] 193 mg/dL High 74 - 99 mg/dL [facility] Comment on above: The [place] Di[employer] Association (ADA) provides guidance for [...] Standards of Medical Care in Diabetes 2016, [place] [employer]. Diabetes Care. 2016.39(Suppl 1). Interpretation and review of laboratory results Abnormal [facility] Potassium [Moles/Vol] 3.9 mmol/L 3.7 - 5.1 mmol/L [facility] Protein [Mass/Vol] 6.9 g/dL 6.3 - 8.0 g/dL [facility] Sodium [Moles/Vol] 137 mmol/L 136 - 144 mmol/L [facility] Urea nitrogen [Mass/Vol] 12 mg/dL 9 - 24 mg/dL [facility] Comprehensive metabolic 2000 panelon 08-17-2024 Albumin [Mass/Vol] 3.8 g/dL Low 3.9-4.9 [facility] Comment on above: Order Comment: Speci men Type: BLOOD SPECIMENOrdering Facility: [facility] Address: [address] [place] [address] Performed By: #### 1 9123-9, 47402-3 ####[facility] FLORIDAFALGUNIA [id number] [place] [address] [place] ALP [Catalytic activity/Vol] 103 U/L Normal 38-113 [facility] Comment on above: Order Comment: Speci men Type: BLOOD SPECIMENOrdering Facility: [facility] Address: [address] [place] [address] Performed By: #### 1 9123-9, 12188-0 ####[facility] FLORIDANCA [id number] [place] [address] [place] ALT [Catalytic activity/Vol] 10 U/L Normal 10-54 [facility] Comment on above: Order Comment: Speci men Type: BLOOD SPECIMENOrdering Facility: [facility] Address: [address] [place] [address] Performed By: #### 1 9123-9, 67769-5 ####[facility] FLORIDABANG [id number] [place] [address] [place] Anion gap [Moles/Vol] 9 mmol/L Normal 8-15 [facility] Comment on above: Order Comment: Speci men Type: BLOOD SPECIMENOrdering Facility: [facility] Address: [address] [place] [address] Performed By: #### 1 9123-9, 43154-0 ####[facility] FLORIDANCLIA [id number] [place] [address] [place] AST [Catalytic activity/Vol] 14 U/L Normal 14-40 [facility] Comment on above: Order Comment: Speci men Type: BLOOD SPECIMENOrdering Facility: [facility] Address: [address] [place], [place] [address] Performed By: #### 1 9123-9, 03564-3 ####[facility] CLAU ORTIZ [id number] [place] [address] [place] Bilirubin [Mass/Vol] 0.5 mg/dL Normal 0.2-1.3 [facility] Comment on above: Order Comment: Speci men Type: BLOOD SPECIMENOrdering Facility: [facility] Address: [address] [place] [address] Performed By: #### 1 9123-9, 50356-5 ####[facility] ANGEL [id number] [place] [address] [place] Calcium [Mass/Vol] 9.0 mg/dL Normal 8.5-10.2 [facility] Comment on above: Order Comment: Speci men Type: BLOOD SPECIMENOrdering Facility: [facility] Address: [address] [place] [address] Performed By: #### 1 9123-9, 63369-5 ####[facility] ANGEL [id number] [place] [address] [place] Chloride [Moles/Vol] 100 mmol/L Normal 98-107 [facility] Comment on above: Order Comment: Speci men Type: BLOOD SPECIMENOrdering Facility: [facility] Address: [address] [place] [address] Performed By: #### 1 9123-9, 83703-5 ####[facility] ANGEL [id number] [place] [address] [place] CO2 [Moles/Vol] 28 mmol/L Normal 22-30 [facility] Comment on above: Order Comment: Speci men Type: BLOOD SPECIMENOrdering Facility: [facility] Address: [address] [place] [address] Performed By: #### 1 9123-9, 38532-5 ####[facility] TEDDYBULLHEADNCA [id number] [place] [address] [place] Creatinine [Mass/Vol] 0.74 mg/dL Normal 0.73-1.22 [facility] Comment on above: Order Comment: Willam robles Type: BLOOD SPECIMENOrdering Facility: [facility] Address: [address] [place] [address] Performed By: #### 1 9123-9, 45402-7 ####[facility] FL[facility]IDANCLIA [id number] [place] [address] [place] Creatinine and Glomerular filtration rate.predicted panel (S/P/Bld) 94 mL/min/1.73m??? Normal >=60 [facility] Comment on above: Order Comment: Willam robles Type: BLOOD SPECIMENOrdering Facility: [facility] Address: [address] [place] [address] Result Comment: Rod mated Glomerular Filtration Rate [...] actual GFR. Performed By: #### 1 9123-9, 55009-4 ####[facility]ITALLIA [id number] [place] [address] [place] Glucose [Mass/Vol] 193 mg/dL High 74-99 [facility] Comment on above: Order Comment: Patti men Type: BLOOD SPECIMENOrdering Facility: [facility] Address: [address] [place] [address] Result Comment: The [place] Diabetes Association (ADA) provides guidance for cutoff [...] Standards of Medical Care in Diabetes 2016, [place] [employer]. Diabetes Care. 2016.39(Suppl 1). Performed By: #### 1 9123-9, 57421-3 ####[facility] MILLTOWNCLIA [id number] [place] [address] [place] Potassium [Moles/Vol] 3.9 mmol/L Normal 3.7-5.1 [facility] Comment on above: Order Comment: Speci men Type: BLOOD SPECIMENOrdering Facility: [facility] Address: [address] [place] [address] Performed By: #### 1 239, ####[facility] ERWNCLIA [id number] [place] [address] [place] Protein [Mass/Vol] 6.9 g/dL Normal 6.3-8.0 [facility] Comment on above: Order Comment: Speci men Type: BLOOD SPECIMENOrdering Facility: [facility] Address: [address] [place] [address] Performed By: #### 1 91239, ####[facility] MILLWNCLIA [id number] [place] [address] [place] Sodium [Moles/Vol] 137 mmol/L Normal 136-144 [facility] Comment on above: Order Comment: Speci men Type: BLOOD SPECIMENOrdering Facility: [facility] Address: [address] [place] [address] Performed By: #### 1 9123-9, ####[facility] MILLTOWNCLIA [id number] [place] [address] [place] Urea nitrogen [Mass/Vol] 12 mg/dL Normal 9-24 [facility] Comment on above: Order Comment: Speci men Type: BLOOD SPECIMENOrdering Facility: [facility] Address: [address] [place] [address] Performed By: #### 1 9123-9, 62597-8 ####[facility] [id number] [place] [address] [place] MAGNESIUMon 08-17-2024 Magnesium [Mass/Vol] 1.7 mg/dL 1.7 - 2 .3 mg/dL [facility] Magnesium SerPl-mCncon 08-17 Magnesium [Mass/Vol] 1.7 mg/dL Normal 1.7-2.3 [facility] Comment on above: Order Comment: Speci men Type: BLOOD SPECIMENOrdering Facility: [facility] Address: [address] [place] [address] Performed By: #### 1 9123-9, 87536-7 ####[facility] [id number] [place] [address] [place] Magnesium [Mass/Vol]on 08-17 Interpretation and review of laboratory results Normal [facility] No Panel InformationOrdered By: Cody Hurtado on 08-17-2024 [facility] CBC W Auto Differential pane l (Bld)on 08-10-2024 Basophils (Bld) [#/Vol] NINF [facility] Basophils/100 WBC (Bld) 0.2 % [facility] Differential cell count method Nom (Bld) Auto [facility] Eosinophils (Bld) [#/Vol] NINF [facility] Eosinophils/100 WBC (Bld) 0.1 % [facility] Erythrocyte distribution width (RBC) [Ratio] 21.4 % High 11.5 - 15.0 % [facility] Hematocrit (Bld) [Volume fraction] 31.1 % Low 39.0 - 51.0 % [facility] Hemoglobin (Bld) [Mass/Vol] 9.3 g/dL Low 13.0 - 17.0 g/dL [facility] Immature granulocytes (Bld) [#/Vol] 0.14 10*3/uL High NINF [facility] Immature granulocytes/100 WBC (Bld) 1.1 % [facility] Interpretation and review of laboratory results Abnormal [facility] Lymphocytes (Bld) [#/Vol] 1.21 10*3/uL [facility] Lymphocytes/100 WBC (Bld) 9.9 % [facility] MCH (RBC) [Entitic mass] 28.9 pg 26.0 - 34.0 pg [facility] MCHC (RBC) [Mass/Vol] 29.9 g/dL Low 30.5 - 36.0 g/dL [facility] MCV (RBC) [Entitic vol] 96.6 fL 80.0 - 100.0 fL [facility] Monocytes (Bld) [#/Vol] 0.32 10*3/uL [facility] Monocytes/100 WBC (Bld) 2.6 % [facility] Neutrophils (Bld) [#/Vol] 10.49 10*3/uL High [facility] Neutrophils/100 WBC (Bld) 86.1 % [facility] Nucleated RBC (Bld) [#/Vol] [facility] Nucleated RBC/100 WBC (Bld) [Ratio] 0 % /100 WBC [facility] Platelet mean volume (Bld) [Entitic vol] 9 fL 9.0 - 12.7 fL [facility] Platelets (Bld) [#/Vol] 185 10*3/uL [facility] RBC (Bld) [#/Vol] 3.22 10*6/uL Low 4.20 - 6.0 0 m/uL [facility] WBC (Bld) [#/Vol] 12.19 10*3/uL High [facility] Basophils (Bld) [#/Vol] 10*3/uL Normal <0.11 [facility] Comment on above: Order Comment: Speci men Type: BLOOD SPECIMENOrdering Facility: [facility] Address: [address] [place], [place] [address] Performed By: #### 5 7021-8 ####[facility] CLAUC[facility] [id number] [place] [address] [place] Basophils/100 WBC (Bld) 0.2 % Normal [facility] Comment on above: Order Comment: Speci men Type: BLOOD SPECIMENOrdering Facility: [facility] Address: [address] [place] [address] Performed By: #### 5 7021-8 ####[facility] [id number] [place] [address] [place] Differential cell count method Nom (Bld) Auto Normal [facility] Comment on above: Order Comment: Speci men Type: BLOOD SPECIMENOrdering Facility: [facility] Address: [address] [place] [address] Performed By: #### 5 7021-8 ####[facility] [id number] [place] [address] [place] Eosinophils (Bld) [#/Vol] 10*3/uL Normal <0.46 [facility] Comment on above: Order Comment: Speci men Type: BLOOD SPECIMENOrdering Facility: [facility] Address: [address] [place] [address] Performed By: #### 5 7021-8 ####[facility] [id number] [place] [address] [place] Eosinophils/100 WBC (Bld) 0.1 % Normal [facility] Comment on above: Order Comment: Speci men Type: BLOOD SPECIMENOrdering Facility: [facility] Address: [address] [place] [address] Performed By: #### 5 7021-8 ####[facility] [id number] [place] [address] [place] Erythrocyte distribution width (RBC) [Ratio] 21.4 % High 11.5-15.0 [facility] Comment on above: Order Comment: Speci men Type: BLOOD SPECIMENOrdering Facility: [facility] Address: [address] [place] [address] Performed By: #### 5 7021-8 ####[facility] TEDDYGANESH [id number] [place] [address] [place] Hematocrit (Bld) [Volume fraction] 31.1 % Low 39.0-51.0 [facility] Comment on above: Order Comment: Speci men Type: BLOOD SPECIMENOrdering Facility: [facility] Address: [address] [place] [address] Performed By: #### 5 7021-8 ####[facility] [id number] [place] [address] [place] Hemoglobin (Bld) [Mass/Vol] 9.3 g/dL Low 13.0-17.0 [facility] Comment on above: Order Comment: Speci men Type: BLOOD SPECIMENOrdering Facility: [facility] Address: [address] [place] [address] Performed By: #### 5 7021-8 ####[facility] [id number] [place] [address] [place] Immature granulocytes (Bld) [#/Vol] 0.14 10*3/uL High <0.10 [facility] Comment on above: Order Comment: Speci men Type: BLOOD SPECIMENOrdering Facility: [facility] Address: [address] [place] [address] Performed By: #### 5 7021-8 ####[facility]ALL[facility] [id number] [place] [address] [place] Immature granulocytes/100 WBC (Bld) 1.1 % Normal [facility] Comment on above: Order Comment: Speci men Type: BLOOD SPECIMENOrdering Facility: [facility] Address: [address] [place] [address] Performed By: #### 5 7021-8 ####[facility] ERWVTLIA [id number] [place] [address] [place] Lymphocytes (Bld) [#/Vol] 1.21 10*3/uL Normal 1.00-4.00 [facility] Comment on above: Order Comment: Speci men Type: BLOOD SPECIMENOrdering Facility: [facility] [facility] Address: [address] [place] [address] Performed By: #### 5 7021-8 ####[facility] [id number] [place] [address] [place] Lymphocytes/100 WBC (Bld) 9.9 % Normal [facility] Comment on above: Order Comment: Speci men Type: BLOOD SPECIMENOrdering Facility: [facility] Address: [address] [place] [address] Performed By: #### 5 7021-8 ####[facility] [id number] [place] [address] [place] MCH (RBC) [Entitic mass] 28.9 pg Normal 26.0-34.0 [facility] Comment on above: Order Comment: Speci men Type: BLOOD SPECIMENOrdering Facility: [facility] Address: [address] [place] [address] Performed By: #### 5 7021-8 ####[facility] [id number] [place] [address] [place] MCHC (RBC) [Mass/Vol] 29.9 g/dL Low 30.5-36.0 [facility] Comment on above: Order Comment: Speci men Type: BLOOD SPECIMENOrdering Facility: [facility] Address: [address] [place] [address] Performed By: #### 5 7021-8 ####[facility] [id number] [place] [address] [place] MCV (RBC) [Entitic vol] 96.6 fL Normal 80.0-100.0 [facility] Comment on above: Order Comment: Speci men Type: BLOOD SPECIMENOrdering Facility: [facility] Address: [address] [place] [address] Performed By: #### 5 7021-8 ####[facility] [id number] [place] [address] [place] Monocytes (Bld) [#/Vol] 0.32 10*3/uL Normal <0.87 [facility] Comment on above: Order Comment: Speci men Type: BLOOD SPECIMENOrdering Facility: [facility] Address: [address] [place] [address] Performed By: #### 5 7021-8 ####[facility] [id number] [place] [address] [place] Monocytes/100 WBC (Bld) 2.6 % Normal [facility] Comment on above: Order Comment: Speci men Type: BLOOD SPECIMENOrdering Facility: [facility] Address: [address] [place] [address] Performed By: #### 5 7021-8 ####[facility] [id number] [place] [address] [place] Neutrophils (Bld) [#/Vol] 10.49 10*3/uL High 1.45-7.50 [facility] Comment on above: Order Comment: Speci men Type: BLOOD SPECIMENOrdering Facility: [facility] Address: [address] [place] [address] Performed By: #### 5 7021-8 ####[facility] [id number] [place] [address] [place] Neutrophils/100 WBC (Bld) 86.1 % Normal [facility] Comment on above: Order Comment: Speci men Type: BLOOD SPECIMENOrdering Facility: [facility] Address: [address] [place] [address] Performed By: #### 5 7021-8 ####[facility] TEDDYBULLHEADBANG [id number] [place] [address] [place] Nucleated RBC (Bld) [#/Vol] 10*3/uL Normal <0.01 [facility] Comment on above: Order Comment: Speci men Type: BLOOD SPECIMENOrdering Facility: [facility] Address: [address] [place] [address] Performed By: #### 5 7021-8 ####[facility] [id number] [place] [address] [place] Nucleated RBC/100 WBC (Bld) [Ratio] 0.0 /100 WBC Normal [facility] Comment on above: Order Comment: Speci men Type: BLOOD SPECIMENOrdering Facility: [facility] Address: [address] [place] [address] Performed By: #### 5 7021-8 ####[facility] [id number] [place] [address] [place] Platelet mean volume (Bld) [Entitic vol] 9.0 fL Normal 9.0-12.7 [facility] Comment on above: Order Comment: Speci men Type: BLOOD SPECIMENOrdering Facility: [facility] Address: [address] [place] [address] Performed By: #### 5 7021-8 ####[facility] [id number] [place] [address] [place] Platelets (Bld) [#/Vol] 185 10*3/uL Normal 150-400 [facility] Comment on above: Order Comment: Speci men Type: BLOOD SPECIMENOrdering Facility: [facility] Address: [address] [place] [address] Performed By: #### 5 7021-8 ####[facility] [id number] [place] [address] [place] RBC (Bld) [#/Vol] 3.22 10*6/uL Low 4.20-6.00 [facility] Comment on above: Order Comment: Speci men Type: BLOOD SPECIMENOrdering Facility: [facility] Address: [address] [place] [address] Performed By: #### 5 7021-8 ####[facility] [id number] [place] [address] [place] WBC (Bld) [#/Vol] 12.19 10*3/uL High 3.70-11.00 [facility] Comment on above: Order Comment: Speci men Type: BLOOD SPECIMENOrdering Facility: [facility] Address: [address] [place] [address] Performed By: #### 5 7021-8 ####[facility] [id number] [place] [address] [place] [facility] 08-10-2024 Carcinoembryonic Ag [Mass/Vol] 15.1 ng/mL High <=2.9 [facility] Comment on above: Order Comment: Speci men Type: BLOOD SPECIMENOrdering Facility: [facility] Address: [address] [place] [address] Result Comment: Carc inoembryonic antigen test is [...] used interchangeably. Performed By: #### 2 039-6 ####[facility] LABCLIA [id number] [place] [address] [place] CT ABD/PEL W IVCONon 025 CT ABD/PEL W IVCON Normal [facility] CT CHEST W IVCONon 5 CT CHEST W IVCON Normal [facility] Comprehensive metabolic 2000 panelOrdered By: Cody Hurtado on 08-10-2024 Albumin [Mass/Vol] 4 g/dL 3.9 - 4.9 g/dL [facility] ALP [Catalytic activity/Vol] 185 U/L High 38 - 113 U/L [facility] ALT [Catalytic activity/Vol] 11 U/L 10 - 54 U/L [facility] Anion gap [Moles/Vol] 7 mmol/L Low 8 - 15 mmol/L [facility] AST [Catalytic activity/Vol] 14 U/L 14 - 40 U/L [facility] Bilirubin [Mass/Vol] 0.5 mg/dL 0.2 - 1 .3 mg/dL [facility] Calcium [Mass/Vol] 9.3 mg/dL 8.5 - 10. 2 mg/dL [facility] Chloride [Moles/Vol] 101 mmol/L 98 - 10 7 mmol/L [facility] CO2 [Moles/Vol] 29 mmol/L 22 - 30 mmol/L [facility] Creatinine [Mass/Vol] 0.88 mg/dL 0.73 - 1.22 mg/dL [facility] GFR/1.73 sq M.predicted among non-blacks MDRD (S/P/Bld) [Vol rate/Area] 89 mL/min/{1.73_m2} - PINF [facility] Comment on above: Estimated Glomerular Filtration Rate [...] 60 mg/dL Low 74 - 99 mg/dL [facility] Comment on above: The [place] Diab[employer] s Association (ADA) provides guidance for [...] Standards of Medical Care in Diabetes 2016, [place] [employer]. Diabetes Care. 2016.39(Suppl 1). Interpretation and review of laboratory results Abnormal [facility] Potassium [Moles/Vol] 3.2 mmol/L Low 3.7 - 5.1 mmol/L [facility] Protein [Mass/Vol] 7 g/dL 6.3 - 8.0 g/dL [facility] Sodium [Moles/Vol] 137 mmol/L 136 - 144 mmol/L [facility] Urea nitrogen [Mass/Vol] 34 mg/dL High 9 - 24 mg/dL [facility] Comprehensive metabolic 2000 panelon 08-10-2024 Albumin [Mass/Vol] 4.0 g/dL Normal 3.9-4.9 [facility] Comment on above: Order Comment: Willam robles Type: BLOOD SPECIMENOrdering Facility: [facility] Address: [address] [place] [address] Performed By: #### 1 9123-9, 67366-1 ####[facility] [id number] [place] [address] [place] ALP [Catalytic activity/Vol] 185 U/L High 38-113 [facility] Comment on above: Order Comment: Willam robles Type: BLOOD SPECIMENOrdering Facility: [facility] Address: [address] [place] [address] Performed By: #### 1 9123-9, 71523-3 ####[facility] [id number] [place] [address] [place] ALT [Catalytic activity/Vol] 11 U/L Normal 10-54 [facility] Comment on above: Order Comment: Willam robles Type: BLOOD SPECIMENOrdering Facility: [facility] Address: [address] [place] [address] Performed By: #### 1 9123-9, 18173-2 ####[facility] MILLTOWNCLIA [id number] [place] [address] [place] Anion gap [Moles/Vol] 7 mmol/L Low 8-15 [facility] Comment on above: Order Comment: Speci men Type: BLOOD SPECIMENOrdering Facility: [facility] Address: [address] [place] [address] Performed By: #### 1 9123-9, 26653-0 ####[facility] MILLTOWNCLIA [id number] [place] [address] [place] AST [Catalytic activity/Vol] 14 U/L Normal 14-40 [facility] Comment on above: Order Comment: Speci men Type: BLOOD SPECIMENOrdering Facility: [facility] Address: [address] [place] [address] Performed By: #### 1 9123-9, 55992-5 ####[facility] MILLTOWNCLIA [id number] [place] [address] [place] Bilirubin [Mass/Vol] 0.5 mg/dL Normal 0.2-1.3 [facility] Comment on above: Order Comment: Speci men Type: BLOOD SPECIMENOrdering Facility: [facility] Address: [address] [place] [address] Performed By: #### 1 9123-9, 50225-5 ####[facility] MILLTOWNCLIA [id number] [place] [address] [place] Calcium [Mass/Vol] 9.3 mg/dL Normal 8.5-10.2 [facility] Comment on above: Order Comment: Speci men Type: BLOOD SPECIMENOrdering Facility: [facility] Address: [address] [place] [address] Performed By: #### 1 9123-9, 28650-2 ####[facility] MILLTOWNCLIA [id number] [place] [address] [place] Chloride [Moles/Vol] 101 mmol/L Normal 98-107 [facility] Comment on above: Order Comment: Speci men Type: BLOOD SPECIMENOrdering Facility: [facility] Address: [address] [place] [address] Performed By: #### 1 9123-9, 32402-4 ####[facility] [id number] [place] [address] [place] CO2 [Moles/Vol] 29 mmol/L Normal 22-30 [facility] Comment on above: Order Comment: Speci men Type: BLOOD SPECIMENOrdering Facility: [facility] Address: [address] [place] [address] Performed By: #### 1 9123-9, 01198-0 ####[facility] [id number] [place] [address] [place] Creatinine [Mass/Vol] 0.88 mg/dL Normal 0.73-1.22 [facility] Comment on above: Order Comment: Speci men Type: BLOOD SPECIMENOrdering Facility: [facility] Address: [address] [place] [address] Performed By: #### 1 9123-9, 16213-8 ####[facility] [id number] [place] [address] [place] Creatinine and Glomerular filtration rate.predicted panel (S/P/Bld) 89 mL/min/1.73m??? Normal >=60 [facility] Comment on above: Order Comment: Speci men Type: BLOOD SPECIMENOrdering Facility: [facility] Address: [address] [place] [address] Result Comment: Rod mated Glomerular Filtration Rate [...] actual GFR. Performed By: #### 1 9123-9, ####[facility] TEDDYTOWNCLIA [id number] [place] [address] [place] Glucose [Mass/Vol] 60 mg/dL Low 74-99 [facility] Comment on above: Order Comment: Willam rolbes Type: BLOOD SPECIMENOrdering Facility: [facility] Address: [address] [place] [address] Result Comment: The [place] Diabetes Association (ADA) provides guidance for cutoff [...] Standards of Medical Care in Diabetes 2016, [place] [employer]. Diabetes Care. 2016.39(Suppl 1). Performed By: #### 1 9123-9, ####[facility] TEDDYTOWNCLIA [id number] [place] [address] [place] Potassium [Moles/Vol] 3.2 mmol/L Low 3.7-5.1 [facility] Comment on above: Order Comment: Willam robles Type: BLOOD SPECIMENOrdering Facility: [facility] Address: [address] [place] [address] Performed By: #### 1 9123-9, ####[facility] TEDDYJEFFERYWNCLIA [id number] [place] [address] [place] Protein [Mass/Vol] 7.0 g/dL Normal 6.3-8.0 [facility] Comment on above: Order Comment: Speci men Type: BLOOD SPECIMENOrdering Facility: [facility] Address: [address] [place] [address] Performed By: #### 1 9123-9, 29187-3 ####[facility] ERWNCLIA [id number] [place] [address] [place] Sodium [Moles/Vol] 137 mmol/L Normal 136-144 [facility] Comment on above: Order Comment: Speci men Type: BLOOD SPECIMENOrdering Facility: [facility] Address: [address] [place] [address] Performed By: #### 1 9123-9, 75233-1 ####[facility] [id number] [place] [address] [place] Urea nitrogen [Mass/Vol] 34 mg/dL High 9-24 [facility] Comment on above: Order Comment: Speci men Type: BLOOD SPECIMENOrdering Facility: [facility] Address: [address] [place] [address] Performed By: #### 1 9123-9, ####[facility] [id number] [place] [address] [place] MAGNESIUMon 08-10-2024 Magnesium [Mass/Vol] 1.8 mg/dL 1.7 - 2 .3 mg/dL [facility] Magnesium SerPl-mCncon 08-10 Magnesium [Mass/Vol] 1.8 mg/dL Normal 1.7-2.3 [facility] Comment on above: Order Comment: Speci men Type: BLOOD SPECIMENOrdering Facility: [facility] Address: [address] [place] [address] Performed By: #### 1 9123-9, 56432-3 ####[facility]ANCBECKYA [id number] [place] [address] [place] Magnesium [Mass/Vol]on 08-10 Interpretation and review of laboratory results Normal [facility] No Panel InformationOrdered By: Cody Hurtado on 08-10-2024 [facility] UA DIP, URINE (POC)on 2024 BILIRUBIN UA (POCT) Negative Negative [facility] CLARITY UA (POCT) Clear [facility] COLOR UA (POCT) Jocelin [facility] GLUCOSE UA (POCT) Negative Negative mg/dL [facility] Hemoglobin Ql (U) Negative Negative [facility] KETONE UA (POCT) Negative Negative mg/dL [facility] LEUKOCYTES UA (POCT) Negative Negative [facility] NITRITE UA (POCT) Negative Negative [facility] PH UA (POCT) 5.5 4.5 - 8.0 [facility] Protein Ql (U) Negative Negative mg/dL [facility] SPECIFIC GRAVITY UA (POCT) 1.02 1.005 - 1.030 [facility] UROBILINOGEN UA (POCT) 0.2 Normal E.U./dL [facility] Location:[facility], [address], [place], [place], [id number] [place] [address] POINT OF CARE [facility] CBC W Auto Differential pane l (Bld)on 08-03-2024 Basophils (Bld) [#/Vol] [facility]F [facility] Basophils/100 WBC (Bld) 0.2 % [facility] Differential cell count method Nom (Bld) Auto [facility] Eosinophils (Bld) [#/Vol] 0.05 10*3/uL [facility] Eosinophils/100 WBC (Bld) 1.1 % [facility] Erythrocyte distribution width (RBC) [Ratio] 23.0 % High 11.5 - 15.0 % [facility] Hematocrit (Bld) [Volume fraction] 30.8 % Low 39.0 - 51.0 % [facility] Hemoglobin (Bld) [Mass/Vol] 9.2 g/dL Low 13.0 - 17.0 g/dL [facility] Immature granulocytes (Bld) [#/Vol] 0.04 10*3/uL [facility]F [facility] Immature granulocytes/100 WBC (Bld) 0.9 % [facility] Interpretation and review of laboratory results Abnormal [facility] Lymphocytes (Bld) [#/Vol] 0.68 10*3/uL Low [facility] Lymphocytes/100 WBC (Bld) 15.1 % [facility] MCH (RBC) [Entitic mass] 29.1 pg 26.0 - 34.0 pg [facility] MCHC (RBC) [Mass/Vol] 29.9 g/dL Low 30.5 - 36.0 g/dL [facility] MCV (RBC) [Entitic vol] 97.5 fL 80.0 - 100.0 fL [facility] Monocytes (Bld) [#/Vol] 0.37 10*3/uL NINF [facility] Monocytes/100 WBC (Bld) 8.2 % [facility] Neutrophils (Bld) [#/Vol] 3.34 10*3/uL [facility] Neutrophils/100 WBC (Bld) 74.5 % [facility] Nucleated RBC (Bld) [#/Vol] NINF [facility] Nucleated RBC/100 WBC (Bld) [Ratio] 0.0 % /100 WBC [facility] Platelet mean volume (Bld) [Entitic vol] 9.5 fL 9.0 - 12.7 fL [facility] Platelets (Bld) [#/Vol] 123 10*3/uL Low [facility] RBC (Bld) [#/Vol] 3.16 10*6/uL Low 4.20 - 6.0 0 m/uL [facility] WBC (Bld) [#/Vol] 4.49 10*3/uL [facility] Basophils (Bld) [#/Vol] 10*3/uL Normal <0.11 [facility] Comment on above: Order Comment: Speci men Type: BLOOD SPECIMENOrdering Facility: [facility] Address: [address] [place] [address] Performed By: #### 5 7021-8 ####[facility] [id number] [address] [place] Basophils/100 WBC (Bld) 0.2 % Normal [facility] Comment on above: Order Comment: Speci men Type: BLOOD SPECIMENOrdering Facility: [facility] Address: [address] [place], [place] [id number] Performed By: #### 5 7021-8 ####[facility] MILLWGIANNALIA [id number] [place] [address] [place] Differential cell count method Nom (Bld) Auto Normal [facility] Comment on above: Order Comment: Speci men Type: BLOOD SPECIMENOrdering Facility: [facility] Address: [address] [place] [address] Performed By: #### 5 7021-8 ####[facility] [id number] [place] [address] [place] Eosinophils (Bld) [#/Vol] 0.05 10*3/uL Normal <0.46 [facility] Comment on above: Order Comment: Speci men Type: BLOOD SPECIMENOrdering Facility: [facility] Address: [address] [place] [address] Performed By: #### 5 7021-8 ####[facility] [id number] [place] [address] [place] Eosinophils/100 WBC (Bld) 1.1 % Normal [facility] Comment on above: Order Comment: Speci men Type: BLOOD SPECIMENOrdering Facility: [facility] Address: [address] [place] [address] Performed By: #### 5 7021-8 ####[facility] [id number] [place] [address] [place] Erythrocyte distribution width (RBC) [Ratio] 23.0 % High 11.5-15.0 [facility] Comment on above: Order Comment: Speci men Type: BLOOD SPECIMENOrdering Facility: [facility] Address: [address] [place] [address] Performed By: #### 5 7021-8 ####[facility] [id number] [place] [address] [place] Hematocrit (Bld) [Volume fraction] 30.8 % Low 39.0-51.0 [facility] Comment on above: Order Comment: Speci men Type: BLOOD SPECIMENOrdering Facility: [facility] Address: [address] [place] [address] Performed By: #### 5 7021-8 ####[facility] [id number] [place] [address] [place] Hemoglobin (Bld) [Mass/Vol] 9.2 g/dL Low 13.0-17.0 [facility] Comment on above: Order Comment: Speci men Type: BLOOD SPECIMENOrdering Facility: [facility] Address: [address] [place] [address] Performed By: #### 5 7021-8 ####[facility] [id number] [place] [address] [place] Immature granulocytes (Bld) [#/Vol] 0.04 10*3/uL Normal <0.10 [facility] Comment on above: Order Comment: Speci men Type: BLOOD SPECIMENOrdering Facility: [facility] Address: [address] [place] [address] Performed By: #### 5 7021-8 ####[facility] [id number] [place] [address] [place] Immature granulocytes/100 WBC (Bld) 0.9 % Normal [facility] Comment on above: Order Comment: Speci men Type: BLOOD SPECIMENOrdering Facility: [facility] Address: [address] [place] [address] Performed By: #### 5 7021-8 ####[facility]CL[facility] [id number] [place] [address] [place] Lymphocytes (Bld) [#/Vol] 0.68 10*3/uL Low 1.00-4.00 [facility] Comment on above: Order Comment: Speci men Type: BLOOD SPECIMENOrdering Facility: [facility] Address: [address] [place] [address] Performed By: #### 5 7021-8 ####[facility] TEDDYNiraliNCCARLO [id number] [place] [address] [place] Lymphocytes/100 WBC (Bld) 15.1 % Normal [facility] Comment on above: Order Comment: Speci men Type: BLOOD SPECIMENOrdering Facility: [facility] Address: [address] [place] [address] Performed By: #### 5 7021-8 ####[facility] [id number] [place] [address] [place] MCH (RBC) [Entitic mass] 29.1 pg Normal 26.0-34.0 [facility] Comment on above: Order Comment: Speci men Type: BLOOD SPECIMENOrdering Facility: [facility] Address: [address] [place] [address] Performed By: #### 5 7021-8 ####[facility] [id number] [place] [address] [place] MCHC (RBC) [Mass/Vol] 29.9 g/dL Low 30.5-36.0 [facility] Comment on above: Order Comment: Speci men Type: BLOOD SPECIMENOrdering Facility: [facility] Address: [address] [place] [address] Performed By: #### 5 7021-8 ####[facility]CL[facility] [id number] [place] [address] [place] MCV (RBC) [Entitic vol] 97.5 fL Normal 80.0-100.0 [facility] Comment on above: Order Comment: Speci men Type: BLOOD SPECIMENOrdering Facility: [facility] Address: [address] [place] [address] Performed By: #### 5 7021-8 ####[facility] MILLTOWNCLIA [id number] [place] [address] [place] Monocytes (Bld) [#/Vol] 0.37 10*3/uL Normal <0.87 [facility] Comment on above: Order Comment: Speci men Type: BLOOD SPECIMENOrdering Facility: [facility] Address: [address] [place] [address] Performed By: #### 5 7021-8 ####[facility] [id number] [place] [address] [place] Monocytes/100 WBC (Bld) 8.2 % Normal [facility] Comment on above: Order Comment: Speci men Type: BLOOD SPECIMENOrdering Facility: [facility] Address: [address] [place] [address] Performed By: #### 5 7021-8 ####[facility]ALLIA [id number] [place] [address] [place] Neutrophils (Bld) [#/Vol] 3.34 10*3/uL Normal 1.45-7.50 [facility] Comment on above: Order Comment: Speci men Type: BLOOD SPECIMENOrdering Facility: [facility] Address: [address] [place] [address] Performed By: #### 5 7021-8 ####[facility] [id number] [place] [address] [place] Neutrophils/100 WBC (Bld) 74.5 % Normal [facility] Comment on above: Order Comment: Speci men Type: BLOOD SPECIMENOrdering Facility: [facility] Address: [address] [place] [address] Performed By: #### 5 7021-8 ####[facility]IDANCLIA [id number] [place] [address] [place] Nucleated RBC (Bld) [#/Vol] 10*3/uL Normal <0.01 [facility] Comment on above: Order Comment: Speci men Type: BLOOD SPECIMENOrdering Facility: [facility] Address: [address] [place] [address] Performed By: #### 5 7021-8 ####[facility] [id number] [place] [address] [place] Nucleated RBC/100 WBC (Bld) [Ratio] 0.0 /100 WBC Normal [facility] Comment on above: Order Comment: Speci men Type: BLOOD SPECIMENOrdering Facility: [facility] Address: [address] [place] [address] Performed By: #### 5 7021-8 ####[facility]CL[facility] [id number] [place] [address] [place] Platelet mean volume (Bld) [Entitic vol] 9.5 fL Normal 9.0-12.7 [facility] Comment on above: Order Comment: Speci men Type: BLOOD SPECIMENOrdering Facility: [facility] Address: [address] [place] [address] Performed By: #### 5 7021-8 ####[facility] [id number] [place] [address] [place] Platelets (Bld) [#/Vol] 123 10*3/uL Low 150-400 [facility] Comment on above: Order Comment: Speci men Type: BLOOD SPECIMENOrdering Facility: [facility] Address: [address] [place] [address] Performed By: #### 5 7021-8 ####[facility] [id number] [place] [address] [place] RBC (Bld) [#/Vol] 3.16 10*6/uL Low 4.20-6.00 [facility] Comment on above: Order Comment: Speci men Type: BLOOD SPECIMENOrdering Facility: [facility] Address: [address] [place] [address] Performed By: #### 5 7021-8 ####[facility] CLAU BUENOWNCLIA [id number] [place] [address] [place] WBC (Bld) [#/Vol] 4.49 10*3/uL Normal 3.70-11.00 [facility] Comment on above: Order Comment: Speci men Type: BLOOD SPECIMENOrdering Facility: [facility] Address: [address] [place] [address] Performed By: #### 5 7021-8 ####[facility]IDANCLIA [id number] [place] [address] [place] CEA SerPl-mCncon 08-03-2024 Carcinoembryonic Ag [Mass/Vol] 11.7 ng/mL High <=2.9 [facility] Comment on above: Order Comment: Speci men Type: BLOOD SPECIMENOrdering Facility: [facility] Address: [address] [place] [address] Result Comment: Carc inoembryonic antigen test is [...] used interchangeably. Performed By: #### 2 039-6 ####[facility] LABCLIA [id number] [place] [address] [place] Comprehensive metabolic 2000 panelOrdered By: Mady Cabello on 08-03-2024 Albumin [Mass/Vol] 3.8 g/dL Low 3.9 - 4.9 g/dL [facility] ALP [Catalytic activity/Vol] 123 U/L High 38 - 113 U/L [facility] ALT [Catalytic activity/Vol] 8 U/L Low 10 - 54 U/L [facility] Anion gap [Moles/Vol] 8 mmol/L 8 - 15 mmol/L [facility] AST [Catalytic activity/Vol] 14 U/L 14 - 40 U/L [facility] Bilirubin [Mass/Vol] 0.6 mg/dL 0.2 - 1 .3 mg/dL [facility] Calcium [Mass/Vol] 9.1 mg/dL 8.5 - 10. 2 mg/dL [facility] Chloride [Moles/Vol] 100 mmol/L 98 - 10 7 mmol/L [facility] CO2 [Moles/Vol] 27 mmol/L 22 - 30 mmol/L [facility] Creatinine [Mass/Vol] 0.75 mg/dL 0.73 - 1.22 mg/dL [facility] GFR/1.73 sq M.predicted among non-blacks MDRD (S/P/Bld) [Vol rate/Area] 94 mL/min/{1.73_m2} - PINF [facility] Comment on above: Estimated Glomerular Filtration Rate [...] 187 mg/dL High 74 - 99 mg/dL [facility] Comment on above: The [place] Diabete s Association (ADA) provides guidance for [...] Standards of Medical Care in Diabetes 2016, [place] [employer]. Diabetes Care. 2016.39(Suppl 1). Interpretation and review of laboratory results Abnormal [facility] Potassium [Moles/Vol] 3.9 mmol/L 3.7 - 5.1 mmol/L [facility] Protein [Mass/Vol] 7.0 g/dL 6.3 - 8.0 g/dL [facility] Sodium [Moles/Vol] 135 mmol/L Low 136 - 144 mmol/L [facility] Urea nitrogen [Mass/Vol] 12 mg/dL 9 - 24 mg/dL [facility] Comprehensive metabolic 2000 panelon 08-03-2024 Albumin [Mass/Vol] 3.8 g/dL Low 3.9-4.9 [facility] Comment on above: Order Comment: Speci men Type: BLOOD SPECIMENOrdering Facility: [facility] Address: [address] [place] [address] Performed By: #### 2 4323-8, ####[facility] FL[facility]IDABANG [id number] [place] [address] [place] ALP [Catalytic activity/Vol] 123 U/L High 38-113 [facility] Comment on above: Order Comment: Speci men Type: BLOOD SPECIMENOrdering Facility: [facility] Address: [address] [place] [address] Performed By: #### 2 4323-8, ####[facility] FLORIDAFALGUNIA [id number] [place] [address] [place] ALT [Catalytic activity/Vol] 8 U/L Low 10-54 [facility] Comment on above: Order Comment: Speci men Type: BLOOD SPECIMENOrdering Facility: [facility] Address: [address] [place] [address] Performed By: #### 2 4323-8, ####[facility] FLORIDAGIANNALIA [id number] [place] [address] [place] Anion gap [Moles/Vol] 8 mmol/L Normal 8-15 [facility] Comment on above: Order Comment: Speci men Type: BLOOD SPECIMENOrdering Facility: [facility] Address: [address] [place] [address] Performed By: #### 2 4323-8, 91675-6 ####[facility] CLAU MILLTOWNCLIA [id number] [place] [address] [place] AST [Catalytic activity/Vol] 14 U/L Normal 14-40 [facility] Comment on above: Order Comment: Speci men Type: BLOOD SPECIMENOrdering Facility: [facility] Address: [address] [place] [address] Performed By: #### 2 4323-8, ####[facility] MILLTOWNCLIA [id number] [place] [address] [place] Bilirubin [Mass/Vol] 0.6 mg/dL Normal 0.2-1.3 [facility] Comment on above: Order Comment: Speci men Type: BLOOD SPECIMENOrdering Facility: [facility] Address: [address] [place] [address] Performed By: #### 2 432-8, 79710-3 ####[facility] MILLTOWNCLIA [id number] [place] [address] [place] Calcium [Mass/Vol] 9.1 mg/dL Normal 8.5-10.2 [facility] Comment on above: Order Comment: Speci men Type: BLOOD SPECIMENOrdering Facility: [facility] Address: [address] [place] [address] Performed By: #### 2 4323-8, ####[facility] MILLTOWNCLIA [id number] [place] [address] [place] Chloride [Moles/Vol] 100 mmol/L Normal 98-107 [facility] Comment on above: Order Comment: Speci men Type: BLOOD SPECIMENOrdering Facility: [facility] Address: [address] [place] [address] Performed By: #### 2 4323-8, ####[facility] [id number] [place] [address] [place] CO2 [Moles/Vol] 27 mmol/L Normal 22-30 [facility] Comment on above: Order Comment: Speci men Type: BLOOD SPECIMENOrdering Facility: [facility] Address: [address] [place] [address] Performed By: #### 2 4323-8, ####[facility] [id number] [place] [address] [place] Creatinine [Mass/Vol] 0.75 mg/dL Normal 0.73-1.22 [facility] Comment on above: Order Comment: Speci men Type: BLOOD SPECIMENOrdering Facility: [facility] Address: [address] [place] [address] Performed By: #### 2 4323-8, ####[facility] [id number] [place] [address] [place] Creatinine and Glomerular filtration rate.predicted panel (S/P/Bld) 94 mL/min/1.73m??? Normal >=60 [facility] Comment on above: Order Comment: Speci men Type: BLOOD SPECIMENOrdering Facility: [facility] Address: [address] [place] [address] Result Comment: Rod mated Glomerular Filtration Rate [...] actual GFR. Performed By: #### 2 4323-8, ####[facility]ALLIA [id number] [place] [address] [place] Glucose [Mass/Vol] 187 mg/dL High 74-99 [facility] Comment on above: Order Comment: Willam robles Type: BLOOD SPECIMENOrdering Facility: [facility] Address: [address] [place], [place] [id number] Result Comment: The [place] Diabetes Association (ADA) provides guidance for cutoff [...] Standards of Medical Care in Diabetes 2016, [place] [employer]. Diabetes Care. 2016.39(Suppl 1). Performed By: #### 2 4323-8, ####[facility] ANGEL [id number] [place] [address] [place] Potassium [Moles/Vol] 3.9 mmol/L Normal 3.7-5.1 [facility] Comment on above: Order Comment: Willam robles Type: BLOOD SPECIMENOrdering Facility: [facility] Address: [address] [place], [place] [address] Performed By: #### 2 4323-8, ####[facility] XIMENABANG [id number] [place] [address] [place] Protein [Mass/Vol] 7.0 g/dL Normal 6.3-8.0 [facility] Comment on above: Order Comment: Willam robles Type: BLOOD SPECIMENOrdering Facility: [facility] Address: [address] [place], [place] [address] Performed By: #### 2 4323-8, ####[facility]OSPITALJEFFERYWGIANNALIMckenna [id number] [place] [address] [place] Sodium [Moles/Vol] 135 mmol/L Low 136-144 [facility] Comment on above: Order Comment: Speci men Type: BLOOD SPECIMENOrdering Facility: [facility] Address: [address] [place] [address] Performed By: #### 2 4323-8, ####[facility] [id number] [place] [address] [place] Urea nitrogen [Mass/Vol] 12 mg/dL Normal 9-24 [facility] Comment on above: Order Comment: Speci men Type: BLOOD SPECIMENOrdering Facility: [facility] Address: [address] [place] [address] Performed By: #### 2 4323-8, ####[facility] [id number] [place] [address] [place] MAGNESIUMon 08-03-2024 Magnesium [Mass/Vol] 1.8 mg/dL 1.7 - 2 .3 mg/dL [facility] Magnesium SerPl-mCncon 08-03 Magnesium [Mass/Vol] 1.8 mg/dL Normal 1.7-2.3 [facility] Comment on above: Order Comment: Speci men Type: BLOOD SPECIMENOrdering Facility: [facility] Address: [address] [place] [address] Performed By: #### 2 4323-8, ####[facility] [id number] [place] [address] [place] Magnesium [Mass/Vol]on 08-03 Interpretation and review of laboratory results Normal [facility] No Panel InformationOrdered By: Mady Cabello on 08-03-2024 [facility] CBC W Auto Differential pane l (Bld)on 07-20-2024 Basophils (Bld) [#/Vol] 0.05 10*3/uL Normal <0.11 [facility] Comment on above: Order Comment: Speci men Type: BLOOD SPECIMENOrdering Facility: [facility] Address: [address] [place] [address] Performed By: #### 5 7021-8 ####[facility] TEDDYWGIANNALIA [id number] [place] [address] [place] Basophils/100 WBC (Bld) 0.8 % Normal [facility] Comment on above: Order Comment: Speci men Type: BLOOD SPECIMENOrdering Facility: [facility] Address: [address] [place] [address] Performed By: #### 5 7021-8 ####[facility]ALLIA [id number] [place] [address] [place] Differential cell count method Nom (Bld) Auto Normal [facility] Comment on above: Order Comment: Speci men Type: BLOOD SPECIMENOrdering Facility: [facility] Address: [address] [place] [address] Performed By: #### 5 7021-8 ####[facility]ALL[facility] [id number] [place] [address] [place] Eosinophils (Bld) [#/Vol] 0.13 10*3/uL Normal <0.46 [facility] Comment on above: Order Comment: Speci men Type: BLOOD SPECIMENOrdering Facility: [facility] Address: [address] [place] [address] Performed By: #### 5 7021-8 ####[facility] ERWNCLIA [id number] [place] [address] [place] Eosinophils/100 WBC (Bld) 2.0 % Normal [facility] Comment on above: Order Comment: Speci men Type: BLOOD SPECIMENOrdering Facility: [facility] Address: [address] [place] [address] Performed By: #### 5 7021-8 ####[facility]ALL[facility] [id number] [place] [address] [place] Erythrocyte distribution width (RBC) [Ratio] 22.5 % High 11.5-15.0 [facility] Comment on above: Order Comment: Speci men Type: BLOOD SPECIMENOrdering Facility: [facility] Address: [address] [place] [address] Performed By: #### 5 7021-8 ####[facility]IDAGIANNALIFEPOINT [facility]ALS [id number] [place] [address] [place] Hematocrit (Bld) [Volume fraction] 31.0 % Low 39.0-51.0 [facility] Comment on above: Order Comment: Speci men Type: BLOOD SPECIMENOrdering Facility: [facility] Address: [address] [place] [address] Performed By: #### 5 7021-8 ####[facility] [id number] [place] [address] [place] Hemoglobin (Bld) [Mass/Vol] 9.0 g/dL Low 13.0-17.0 [facility] Comment on above: Order Comment: Speci men Type: BLOOD SPECIMENOrdering Facility: [facility] Address: [address] [place] [address] Performed By: #### 5 7021-8 ####[facility] [id number] [place] [address] [place] Immature granulocytes (Bld) [#/Vol] 0.05 10*3/uL Normal <0.10 [facility] Comment on above: Order Comment: Speci men Type: BLOOD SPECIMENOrdering Facility: [facility] Address: [address] [place] [address] Performed By: #### 5 7021-8 ####[facility] FLORIDANCLI [id number] [place] [address] [place] Immature granulocytes/100 WBC (Bld) 0.8 % Normal [facility] Comment on above: Order Comment: Speci men Type: BLOOD SPECIMENOrdering Facility: [facility] Address: [address] [place] [address] Performed By: #### 5 7021-8 ####[facility] TEDDYBULLHEADNCCARLO [id number] [place] [address] [place] Lymphocytes (Bld) [#/Vol] 1.08 10*3/uL Normal 1.00-4.00 [facility] Comment on above: Order Comment: Speci men Type: BLOOD SPECIMENOrdering Facility: [facility] Address: [address] [place] [address] Performed By: #### 5 7021-8 ####[facility]ANCL[facility] [id number] [place] [address] [place] Lymphocytes/100 WBC (Bld) 17.0 % Normal [facility] Comment on above: Order Comment: Speci men Type: BLOOD SPECIMENOrdering Facility: [facility] Address: [address] [place] [address] Performed By: #### 5 7021-8 ####[facility] [id number] [place] [address] [place] MCH (RBC) [Entitic mass] 28.2 pg Normal 26.0-34.0 [facility] Comment on above: Order Comment: Speci men Type: BLOOD SPECIMENOrdering Facility: [facility] Address: [address] [place] [address] Performed By: #### 5 7021-8 ####[facility] FL[facility]IDANCLIA [id number] [place] [address] [place] MCHC (RBC) [Mass/Vol] 29.0 g/dL Low 30.5-36.0 [facility] Comment on above: Order Comment: Speci men Type: BLOOD SPECIMENOrdering Facility: [facility] Address: [address] [place] [address] Performed By: #### 5 7021-8 ####[facility]IDANCLIA [id number] [place] [address] [place] MCV (RBC) [Entitic vol] 97.2 fL Normal 80.0-100.0 [facility] Comment on above: Order Comment: Speci men Type: BLOOD SPECIMENOrdering Facility: [facility] Address: [address] [place] [address] Performed By: #### 5 7021-8 ####[facility] FL[facility]IDANCLIA [id number] [place] [address] [place] Monocytes (Bld) [#/Vol] 0.53 10*3/uL Normal <0.87 [facility] Comment on above: Order Comment: Speci men Type: BLOOD SPECIMENOrdering Facility: [facility] Address: [address] [place] [address] Performed By: #### 5 7021-8 ####[facility] FLORIDANCLIA [id number] [place] [address] [place] Monocytes/100 WBC (Bld) 8.3 % Normal [facility] Comment on above: Order Comment: Speci men Type: BLOOD SPECIMENOrdering Facility: [facility] Address: [address] [place] [address] Performed By: #### 5 7021-8 ####[facility]ALLIA [id number] [place] [address] [place] Neutrophils (Bld) [#/Vol] 4.51 10*3/uL Normal 1.45-7.50 [facility] Comment on above: Order Comment: Speci men Type: BLOOD SPECIMENOrdering Facility: [facility] Address: [address] [place] [address] Performed By: #### 5 7021-8 ####[facility]ANCL[facility] [id number] [place] [address] [place] Neutrophils/100 WBC (Bld) 71.1 % Normal [facility] Comment on above: Order Comment: Speci men Type: BLOOD SPECIMENOrdering Facility: [facility] Address: [address] [place] [address] Performed By: #### 5 7021-8 ####[facility] [id number] [place] [address] [place] Nucleated RBC (Bld) [#/Vol] 10*3/uL Normal <0.01 [facility] Comment on above: Order Comment: Speci men Type: BLOOD SPECIMENOrdering Facility: [facility] Address: [address] [place] [address] Performed By: #### 5 7021-8 ####[facility] [id number] [place] [address] [place] Nucleated RBC/100 WBC (Bld) [Ratio] 0.0 /100 WBC Normal [facility] Comment on above: Order Comment: Speci men Type: BLOOD SPECIMENOrdering Facility: [facility] Address: [address] [place] [address] Performed By: #### 5 7021-8 ####[facility]IDANCLIA [id number] [place] [address] [place] Platelet mean volume (Bld) [Entitic vol] 9.5 fL Normal 9.0-12.7 [facility] Comment on above: Order Comment: Speci men Type: BLOOD SPECIMENOrdering Facility: [facility] Address: [address] [place] [address] Performed By: #### 5 7021-8 ####[facility] FL[facility]IDANCLIA [id number] [place] [address] [place] Platelets (Bld) [#/Vol] 274 10*3/uL Normal 150-400 [facility] Comment on above: Order Comment: Speci men Type: BLOOD SPECIMENOrdering Facility: [facility] Address: [address] [place] [address] Performed By: #### 5 7021-8 ####[facility] CLAU TEDDYWNCLIA [id number] [place] [address] [place] RBC (Bld) [#/Vol] 3.19 10*6/uL Low 4.20-6.00 [facility] Comment on above: Order Comment: Speci men Type: BLOOD SPECIMENOrdering Facility: [facility] Address: [address] [place] [address] Performed By: #### 5 7021-8 ####[facility]IDANCLIA [id number] [place] [address] [place] WBC (Bld) [#/Vol] 6.35 10*3/uL Normal 3.70-11.00 [facility] Comment on above: Order Comment: Speci men Type: BLOOD SPECIMENOrdering Facility: [facility] Address: [address] [place] [address] Performed By: #### 5 7021-8 ####[facility]IDANCLIA [id number] [place] [address] [place] CEA SerPl-mCncon 07-20-2024 Carcinoembryonic Ag [Mass/Vol] 15.1 ng/mL High <=2.9 [facility] Comment on above: Order Comment: Speci men Type: BLOOD SPECIMENOrdering Facility: [facility] Address: [address] [place] [address] Result Comment: Carc inoembryonic antigen test is used as an aid in monitoring response to treatment or recurrence in patients with established colorectal, breast, lung, prostatic, pancreatic, and ovarian carcinomas. Clinical correlation is required.The Carcinoembryonic antigen test was performed using the [employer] DXI paramagnetic particle chemiluminescent immunoassay method. Results obtained with different assay methods or kits cannot be used interchangeably. Performed By: #### 2 039-6 ####[facility] LABCLIA [id number] [place] LLCLinsey DRASC[place] [address] [place] CNOVSPon 07-20-2024 CNOVSP Normal [facility] Comprehensive metabolic 2000 panelon 07-20-2024 Albumin [Mass/Vol] 3.6 g/dL Low 3.9-4.9 [facility] Comment on above: Order Comment: Speci men Type: BLOOD SPECIMENOrdering Facility: [facility] Address: [address] [place] [address] Performed By: #### 1 9123-9, 75981-8 ####[facility] FLORIDAGIANNAMckenna [id number] [place] [address] [place] ALP [Catalytic activity/Vol] 91 U/L Normal 38-113 [facility] Comment on above: Order Comment: Speci men Type: BLOOD SPECIMENOrdering Facility: [facility] Address: [address] [place] [address] Performed By: #### 1 9123-9, 89963-4 ####[facility]PITALBECKYA [id number] [place] [address] [place] ALT [Catalytic activity/Vol] 5 U/L Low 10-54 [facility] Comment on above: Order Comment: Speci men Type: BLOOD SPECIMENOrdering Facility: [facility] Address: [address] [place] [address] Performed By: #### 1 9123-9, 04844-1 ####[facility] FLORIDANCLIA [id number] [place] [address] [place] Anion gap [Moles/Vol] 8 mmol/L Normal 8-15 [facility] Comment on above: Order Comment: Speci men Type: BLOOD SPECIMENOrdering Facility: [facility] Address: [address] [place] [address] Performed By: #### 1 9123-9, 37604-7 ####[facility] MILLTOWNCLIA [id number] [place] [address] [place] AST [Catalytic activity/Vol] 12 U/L Low 14-40 [facility] Comment on above: Order Comment: Speci men Type: BLOOD SPECIMENOrdering Facility: [facility] Address: [address] [place] [address] Performed By: #### 1 9123-9, ####[facility] MILLTOWNCLIA [id number] [place] [address] [place] Bilirubin [Mass/Vol] 0.5 mg/dL Normal 0.2-1.3 [facility] Comment on above: Order Comment: Speci men Type: BLOOD SPECIMENOrdering Facility: [facility] Address: [address] [place] [address] Performed By: #### 1 9123-9, ####[facility] ERWNCLIA [id number] [place] [address] [place] Calcium [Mass/Vol] 9.5 mg/dL Normal 8.5-10.2 [facility] Comment on above: Order Comment: Speci men Type: BLOOD SPECIMENOrdering Facility: [facility] Address: [address] [place] [address] Performed By: #### 1 9123-9, ####[facility] ERWNCLIA [id number] [place] [address] [place] Chloride [Moles/Vol] 100 mmol/L Normal 98-107 [facility] Comment on above: Order Comment: Speci men Type: BLOOD SPECIMENOrdering Facility: [facility] Address: [address] [place] [address] Performed By: #### 1 9123-9, ####[facility] MILLTOWNCLIA [id number] [place] [address] [place] CO2 [Moles/Vol] 29 mmol/L Normal 22-30 [facility] Comment on above: Order Comment: Willam robles Type: BLOOD SPECIMENOrdering Facility: [facility] Address: [address] [place] [address] Performed By: #### 1 9123-9, 05009-7 ####[facility] FLORIDABANG [id number] [place] [address] [place] Creatinine [Mass/Vol] 0.77 mg/dL Normal 0.73-1.22 [facility] Comment on above: Order Comment: Willam men Type: BLOOD SPECIMENOrdering Facility: [facility] Address: [address] [place] [address] Performed By: #### 1 9123-9, 06296-1 ####[facility] FLORIDANCMckenna [id number] [place] [address] [place] Creatinine and Glomerular filtration rate.predicted panel (S/P/Bld) 93 mL/min/1.73m??? Normal >=60 [facility] Comment on above: Order Comment: Willam rboles Type: BLOOD SPECIMENOrdering Facility: [facility] Address: [address] [place] [address] Result Comment: Rod mated Glomerular Filtration Rate [...] actual GFR. Performed By: #### 1 9123-9, 46326-8 ####[facility] FLORIDANCLIA [id number] [place] [address] [place] Glucose [Mass/Vol] 136 mg/dL High 74-99 [facility] Comment on above: Order Comment: Speci men Type: BLOOD SPECIMENOrdering Facility: [facility] Address: [address] [place], [place] [address] Result Comment: The [place] Diabetes Association (ADA) provides guidance for cutoff [...] Standards of Medical Care in Diabetes 2016, [place] Diabetes Association. Diabetes Care. 2016.39(Suppl 1). Performed By: #### 1 9123-9, 23848-2 ####[facility] [id number] [place] [address] [place] Potassium [Moles/Vol] 3.8 mmol/L Normal 3.7-5.1 [facility] Comment on above: Order Comment: Willam robles Type: BLOOD SPECIMENOrdering Facility: [facility] Address: [address] [place], [place] [address] Performed By: #### 1 9123-9, 47715-9 ####[facility]ENTERA [id number] [place] [address] [place] Protein [Mass/Vol] 7.6 g/dL Normal 6.3-8.0 [facility] Comment on above: Order Comment: Willam robles Type: BLOOD SPECIMENOrdering Facility: [facility] Address: [address] [place], [place] [address] Performed By: #### 1 9123-9, ####[facility] ERWNCLIA [id number] [place] [address] [place] Sodium [Moles/Vol] 137 mmol/L Normal 136-144 [facility] Comment on above: Order Comment: Willam robles Type: BLOOD SPECIMENOrdering Facility: [facility] Address: [address] [place] [address] Performed By: #### 1 9123-9, 84799-8 ####[facility]ANCLIFE[facility] [id number] [place] [address] [place] Urea nitrogen [Mass/Vol] 13 mg/dL Normal 9-24 [facility] Comment on above: Order Comment: Willam men Type: BLOOD SPECIMENOrdering Facility: [facility] Address: [address] [place] [address] Performed By: #### 1 9123-9, 44881-4 ####[facility]CL[facility] [id number] [place] [address] [place] HbA1c (Bld)on 07-20-2024 Average glucose Estimated from glycated hemoglobin (Bld) [Mass/Vol] 131 mg/dL Normal [facility] Comment on above: Order Comment: Willam robles Type: BLOOD SPECIMENOrdering Facility: [facility] Address: [address] [place] [address] Result Comment: eAG: (Estimated average glucose) is a calculated value from HgbA1c and is sales representative livestock of the average blood glucose level in the last 2-3 month period. Performed By: #### 5 5454-3 ####[facility] LABCLIA [id number] [place] [address] [place] HbA1c (Bld) [Mass fraction] 6.2 % High 4.3-5.6 [facility] Comment on above: Order Comment: Willam margaret Type: BLOOD SPECIMENOrdering Facility: [facility] Address: [address] [place] [address] Result Comment: [place] Diabetes Association guidelines indicate that patients with HgbA1c in the range 5.7-6.4% are at increased risk for development of diabetes, and intervention by lifestyle modification may be beneficial. HgbA1c greater or equal to 6.5% is considered diagnostic of diabetes. Performed By: #### 5 5454-3 ####[facility] LABCLIA [id number] [facility]DES[facility] [place] [id number] [place] Magnesium SerPl-mCncon 07-20 Magnesium [Mass/Vol] 1.7 mg/dL Normal 1.7-2.3 [facility] Comment on above: Order Comment: Speci men Type: BLOOD SPECIMENOrdering Facility: [facility] Address: [address] [place] [address] Performed By: #### 1 9123-9, 47097-7 ####[facility] MILLTONCLIA [id number] [place] [address] [place] CNOVon 07-11-2024 CNOV Normal [facility] CBC W Auto Differential pane l (Bld)on 07-06-2024 Anisocytosis Ql (Bld) Present [facility] Basophils (Bld) [#/Vol] 0.00 10*3/uL [facility]F [facility] Basophils/100 WBC (Bld) 0.0 % [facility] Dacrocytes LM Ql (Bld) Few [facility] Differential cell count method Nom (Bld) Manual [facility] Eosinophils (Bld) [#/Vol] 0.05 10*3/uL [facility]F [facility] Eosinophils/100 WBC (Bld) 3.0 % [facility] Erythrocyte distribution width (RBC) [Ratio] 22.6 % High 11.5 - 15.0 % [facility] Hematocrit (Bld) [Volume fraction] 27.3 % Low 39.0 - 51.0 % [facility] Hemoglobin (Bld) [Mass/Vol] 8.3 g/dL Low 13.0 - 17.0 g/dL [facility] Interpretation and review of laboratory results Abnormal [facility] Lymphocytes (Bld) [#/Vol] 0.64 10*3/uL Low [facility] Lymphocytes/100 WBC (Bld) 39.0 % [facility] MCH (RBC) [Entitic mass] 28.8 pg 26.0 - 34.0 pg [facility] MCHC (RBC) [Mass/Vol] 30.4 g/dL Low 30.5 - 36.0 g/dL [facility] MCV (RBC) [Entitic vol] 94.8 fL 80.0 - 100.0 fL [facility] Monocytes (Bld) [#/Vol] 0.33 10*3/uL [facility]F [facility] Monocytes/100 WBC (Bld) 20.0 % [facility] Neutrophils (Bld) [#/Vol] 0.63 10*3/uL Low [facility] Neutrophils/100 WBC (Bld) 38.0 % [facility] Nucleated RBC (Bld) [#/Vol] 0.02 10*3/uL [facility] Nucleated RBC/100 WBC (Bld) [Ratio] 1.0 % /100 WBC [facility] Ovalocytes LM Ql (Bld) Few [facility] Platelet mean volume (Bld) [Entitic vol] 10.4 fL 9.0 - 12.7 fL [facility] Platelets (Bld) [#/Vol] 223 10*3/uL [facility] Comment on above: No clot detected. Platelets Estimate (Bld) [#/Vol] Adequate [facility] Polychromasia LM Ql (Bld) Slight [facility] RBC (Bld) [#/Vol] 2.88 10*6/uL Low 4.20 - 6.0 0 m/uL [facility] Red Cell Morph Reviewed: see result s of individual morphologies [facility] WBC (Bld) [#/Vol] 1.65 10*3/uL Low [facility] This is an appended report. These results have been appended to a previously verified report. [facility] Anisocytosis Ql (Bld) Present Normal [facility] Comment on above: Order Comment: Speci men Type: BLOOD SPECIMENOrdering Facility: [facility] Address: [address] [place], [place] [address] Performed By: #### 5 7021-8 ####[facility] ESPINALBULLHEADBANG [id number] [place] [id number] [place] [address] LABORATORYCLIA [id number] [address] Basophils (Bld) [#/Vol] 0.00 10*3/uL Normal <0.11 [facility] Comment on above: Order Comment: Speci men Type: BLOOD SPECIMENOrdering Facility: [facility] Address: [address] [place] [address] Performed By: #### 5 7021-8 ####[facility]ITALTOWNCLIA [id number] [address] LABORATORYCLIA [id number] [address] Basophils/100 WBC (Bld) 0.0 % Normal [facility] Comment on above: Order Comment: Speci men Type: BLOOD SPECIMENOrdering Facility: [facility] Address: [address] [place] [address] Performed By: #### 5 7021-8 ####[facility] ERWNCLIA [id number] [address] LABORATORYCLIA [id number] [address] Dacrocytes LM Ql (Bld) Few Normal [facility] Comment on above: Order Comment: Speci men Type: BLOOD SPECIMENOrdering Facility: [facility] Address: [address] [place] [address] Performed By: #### 5 7021-8 ####[facility]ANCLIA [id number] [address] LABORATORYCLIA [id number] [address] Differential cell count method Nom (Bld) Manual Normal [facility] Comment on above: Order Comment: Speci men Type: BLOOD SPECIMENOrdering Facility: [facility] Address: [address] [place] [address] Performed By: #### 5 7021-8 ####[facility]A [id number] [address] LABORATORYCLIA [id number] [place] [address] [place] Eosinophils (Bld) [#/Vol] 0.05 10*3/uL Normal <0.46 [facility] Comment on above: Order Comment: Speci men Type: BLOOD SPECIMENOrdering Facility: [facility] Address: [address] [place] [address] Performed By: #### 5 7021-8 ####[facility] MILLTOWNCLIA [id number] [address] LABORATORYCLIA [id number] [place] [address] [place] Eosinophils/100 WBC (Bld) 3.0 % Normal [facility] Comment on above: Order Comment: Speci men Type: BLOOD SPECIMENOrdering Facility: [facility] Address: [address] [place] [address] Performed By: #### 5 7021-8 ####[facility]ITALTOWNCLIA [id number] [address] LABORATORYCLIA [id number] [place] [address] [place] Erythrocyte distribution width (RBC) [Ratio] 22.6 % High 11.5-15.0 [facility] Comment on above: Order Comment: Speci men Type: BLOOD SPECIMENOrdering Facility: [facility] Address: [address] [place] [address] Performed By: #### 5 7021-8 ####[facility] ERWVTLIA [id number] [address] LABORATORYCLIA [id number] [place] [address] [place] Hematocrit (Bld) [Volume fraction] 27.3 % Low 39.0-51.0 [facility] Comment on above: Order Comment: Speci men Type: BLOOD SPECIMENOrdering Facility: [facility] Address: [address] [place] [address] Performed By: #### 5 7021-8 ####[facility] XIMENAWNCLIA [id number] [address] LABORATORYCLIA [id number] [place] [address] [place] Hemoglobin (Bld) [Mass/Vol] 8.3 g/dL Low 13.0-17.0 [facility] Comment on above: Order Comment: Speci men Type: BLOOD SPECIMENOrdering Facility: [facility] Address: [address] [place] [address] Performed By: #### 5 7021-8 ####[facility]IDANCLIA [id number] [address] LABORATORYCLIA [id number] [place] [address] [place] Lymphocytes (Bld) [#/Vol] 0.64 10*3/uL Low 1.00-4.00 [facility] Comment on above: Order Comment: Speci men Type: BLOOD SPECIMENOrdering Facility: [facility] Address: [address] [place] [address] Performed By: #### 5 7021-8 ####[facility] ERWNCLIA [id number] [address] LABORATORYCLIA [id number] [place] [address] [place] Lymphocytes/100 WBC (Bld) 39.0 % Normal [facility] Comment on above: Order Comment: Speci men Type: BLOOD SPECIMENOrdering Facility: [facility] Address: [address] [place] [address] Performed By: #### 5 7021-8 ####[facility] MILLTOWNCLIA [id number] [address] LABORATORYCLIA [id number] [address] MCH (RBC) [Entitic mass] 28.8 pg Normal 26.0-34.0 [facility] Comment on above: Order Comment: Speci men Type: BLOOD SPECIMENOrdering Facility: [facility] Address: [address] [place] [address] Performed By: #### 5 7021-8 ####[facility]IDANCLIA [id number] [address] LABORATORYCLIA [id number] [address] [facility] MCHC (RBC) [Mass/Vol] 30.4 g/dL Low 30.5-36.0 [facility] Comment on above: Order Comment: Speci men Type: BLOOD SPECIMENOrdering Facility: [facility] Address: [address] [place] [address] Performed By: #### 5 7021-8 ####[facility]ANCLIA [id number] [address] LABORATORYCLIA [id number] [address] [facility] MCV (RBC) [Entitic vol] 94.8 fL Normal 80.0-100.0 [facility] Comment on above: Order Comment: Speci men Type: BLOOD SPECIMENOrdering Facility: [facility] Address: [address] [place], [place] [address] Performed By: #### 5 7021-8 ####[facility] ERWNCLIA [id number] [address] LABORATORYCLIA [id number] [place] [address] [place] Monocytes (Bld) [#/Vol] 0.33 10*3/uL Normal <0.87 [facility] Comment on above: Order Comment: Speci men Type: BLOOD SPECIMENOrdering Facility: [facility] Address: [address] [place] [address] Performed By: #### 5 7021-8 ####[facility]ITALLIA [id number] [address] LABORATORYCLIA [id number] [place] [address] [place] Monocytes/100 WBC (Bld) 20.0 % Normal [facility] Comment on above: Order Comment: Speci men Type: BLOOD SPECIMENOrdering Facility: [facility] Address: [address] [place] [address] Performed By: #### 5 7021-8 ####[facility] [id number] [address] LABORATORYCLIA [id number] [place] [address] [place] Neutrophils (Bld) [#/Vol] 0.63 10*3/uL Low 1.45-7.50 [facility] Comment on above: Order Comment: Speci men Type: BLOOD SPECIMENOrdering Facility: [facility] Address: [address] [place] [address] Performed By: #### 5 7021-8 ####[facility]ITALLIA [id number] [address] LABORATORYCLIA [id number] [place] [address] [place] Neutrophils/100 WBC (Bld) 38.0 % Normal [facility] Comment on above: Order Comment: Speci men Type: BLOOD SPECIMENOrdering Facility: [facility] Address: [address] [place] [address] Performed By: #### 5 7021-8 ####[facility] MILLJEFFERYWNCLIA [id number] [address] LABORATORYCLIA [id number] [place] [address] [place] Nucleated RBC (Bld) [#/Vol] 0.02 10*3/uL High <0.01 [facility] Comment on above: Order Comment: Speci men Type: BLOOD SPECIMENOrdering Facility: [facility] Address: [address] [place] [address] Performed By: #### 5 7021-8 ####[facility] [id number] [address] LABORATORYCLIA [id number] [place] [address] [place] Nucleated RBC/100 WBC (Bld) [Ratio] 1.0 /100 WBC Normal [facility] Comment on above: Order Comment: Speci men Type: BLOOD SPECIMENOrdering Facility: [facility] Address: [address] [place] [address] Performed By: #### 5 7021-8 ####[facility]PITALLIA [id number] [address] LABORATORYCLIA [id number] [place] [address] [place] Ovalocytes LM Ql (Bld) Few Normal [facility] Comment on above: Order Comment: Speci men Type: BLOOD SPECIMENOrdering Facility: [facility] Address: [address] [place] [address] Performed By: #### 5 7021-8 ####[facility] ERWNCLIA [id number] [address] LABORATORYCLIA [id number] [place] [address] [place] Platelet mean volume (Bld) [Entitic vol] 10.4 fL Normal 9.0-12.7 [facility] Comment on above: Order Comment: Speci men Type: BLOOD SPECIMENOrdering Facility: [facility] Address: [address] [place] [address] Performed By: #### 5 7021-8 ####[facility] MILLTOWNCLIA [id number] [address] LABORATORYCLIA [id number] [place] [address] [place] Platelets (Bld) [#/Vol] 223 10*3/uL Normal 150-400 [facility] Comment on above: Order Comment: Speci men Type: BLOOD SPECIMENOrdering Facility: [facility] Address: [address] [place] [address] Result Comment: No c lot detected. Performed By: #### 5 7021-8 ####[facility]ITALTOWNCLIA [id number] [address] LABORATORYCLIA [id number] [place] [address] [place] Platelets Estimate (Bld) [#/Vol] Adequate Normal [facility] Comment on above: Order Comment: Speci men Type: BLOOD SPECIMENOrdering Facility: [facility] Address: [address] [place] [address] Performed By: #### 5 7021-8 ####[facility] ERWNCLIA [id number] [address] LABORATORYCLIA [id number] [place] [address] [place] Polychromasia LM Ql (Bld) Slight Normal [facility] Comment on above: Order Comment: Speci men Type: BLOOD SPECIMENOrdering Facility: [facility] Address: [address] [place] [address] Performed By: #### 5 7021-8 ####[facility] XIMENAWNCLIA [id number] [address] LABORATORYCLIA [id number] [place] [address] [place] RBC (Bld) [#/Vol] 2.88 10*6/uL Low 4.20-6.00 [facility] Comment on above: Order Comment: Speci men Type: BLOOD SPECIMENOrdering Facility: [facility] Address: [address] [place] [address] Performed By: #### 5 7021-8 ####[facility]CL[facility] [id number] [address] LABORATORYCLIA [id number] [place] [address] [place] RED CELL MORPH Reviewed: see result s of individual morphologies Normal [facility] Comment on above: Order Comment: Speci men Type: BLOOD SPECIMENOrdering Facility: [facility] Address: [address] [place] [address] Performed By: #### 5 7021-8 ####[facility] ERWNCLIA [id number] [address] LABORATORYCLIA [id number] [place] [address] [place] WBC (Bld) [#/Vol] 1.65 10*3/uL Low 3.70-11.00 [facility] Comment on above: Order Comment: Speci men Type: BLOOD SPECIMENOrdering Facility: [facility] Address: [address] [place] [address] Performed By: #### 5 7021-8 ####[facility] ERWNCLIA [id number] [place] [address] [place] [facility] LABORATORYCLIA [id number] [place] [address] [place] CEA SerPl-mCncon 07-06-2024 Carcinoembryonic Ag [Mass/Vol] 19.6 ng/mL High <=2.9 [facility] Comment on above: Order Comment: Speci men Type: BLOOD SPECIMENOrdering Facility: [facility] Address: [address] [place] [address] Result Comment: Carc inoembryonic antigen test is used as an aid in monitoring response to treatment or recurrence in patients with established colorectal, breast, lung, prostatic, pancreatic, and ovarian carcinomas. Clinical correlation is required.The Carcinoembryonic antigen test was performed using the [employer] Unicel DXI paramagnetic particle chemiluminescent immunoassay method. Results obtained with different assay methods or kits cannot be used interchangeably. Performed By: #### 2 039-6 ####[facility] LABCLIA [id number] [place] [address] [place] CNPNon 07-06-2024 CNPN Normal [facility] Comprehensive metabolic 2000 panelOrdered By: Cody Hurtado on 07-06-2024 Albumin [Mass/Vol] 3.4 g/dL Low 3.9 - 4.9 g/dL [facility] ALP [Catalytic activity/Vol] 95 U/L 38 - 113 U/L [facility] ALT [Catalytic activity/Vol] 5 U/L Low 10 - 54 U/L [facility] Anion gap [Moles/Vol] 9 mmol/L 8 - 15 mmol/L [facility] AST [Catalytic activity/Vol] 10 U/L Low 14 - 40 U/L [facility] Bilirubin [Mass/Vol] 0.5 mg/dL 0.2 - 1 .3 mg/dL [facility] Calcium [Mass/Vol] 9.2 mg/dL 8.5 - 10. 2 mg/dL [facility] Chloride [Moles/Vol] 100 mmol/L 98 - 10 7 mmol/L [facility] CO2 [Moles/Vol] 28 mmol/L 22 - 30 mmol/L [facility] Creatinine [Mass/Vol] 0.82 mg/dL 0.73 - 1.22 mg/dL [facility] GFR/1.73 sq M.predicted among non-blacks MDRD (S/P/Bld) [Vol rate/Area] 91 mL/min/{1.73_m2} - PINF [facility] Comment on above: Estimated Glomerular Filtration Rate [...] 201 mg/dL High 74 - 99 mg/dL [facility] Comment on above: The [place] Diabete s Association (ADA) provides guidance for [...] Standards of Medical Care in Diabetes 2016, [place] [employer]. Diabetes Care. 2016.39(Suppl 1). Potassium [Moles/Vol] 3.7 mmol/L 3.7 - 5.1 mmol/L [facility] Protein [Mass/Vol] 6.7 g/dL 6.3 - 8.0 g/dL [facility] Sodium [Moles/Vol] 137 mmol/L 136 - 144 mmol/L [facility] Urea nitrogen [Mass/Vol] 14 mg/dL 9 - 24 mg/dL [facility] Comprehensive metabolic 2000 panelon 07-06-2024 Albumin [Mass/Vol] 3.4 g/dL Low 3.9-4.9 [facility] Comment on above: Order Comment: Speci men Type: BLOOD SPECIMENOrdering Facility: [facility] Address: [facility] [place] [address] Performed By: #### 1 9123-9, 87148-0 ####[facility] MILLTOWNCLIA [id number] [place] [address] [place] ALP [Catalytic activity/Vol] 95 U/L Normal 38-113 [facility] Comment on above: Order Comment: Speci men Type: BLOOD SPECIMENOrdering Facility: [facility] Address: [address] [place] [address] Performed By: #### 1 9123-9, 97008-3 ####[facility] MILLTOWNCLIA [id number] [place] [address] [place] ALT [Catalytic activity/Vol] 5 U/L Low 10-54 [facility] Comment on above: Order Comment: Speci men Type: BLOOD SPECIMENOrdering Facility: [facility] Address: [address] [place] [address] Performed By: #### 1 9123-9, 67385-9 ####[facility] ERWNCLIA [id number] [place] [address] [place] Anion gap [Moles/Vol] 9 mmol/L Normal 8-15 [facility] Comment on above: Order Comment: Speci men Type: BLOOD SPECIMENOrdering Facility: [facility] Address: [address] [place] [address] Performed By: #### 1 9123-9, 01428-6 ####[facility] MILLTOWNCLIA [id number] [place] [address] [place] AST [Catalytic activity/Vol] 10 U/L Low 14-40 [facility] Comment on above: Order Comment: Speci men Type: BLOOD SPECIMENOrdering Facility: [facility] Address: [address] [place] [address] Performed By: #### 1 9123-9, 90221-8 ####[facility] ERWNCLIA [id number] [place] [address] [place] Bilirubin [Mass/Vol] 0.5 mg/dL Normal 0.2-1.3 [facility] Comment on above: Order Comment: Speci men Type: BLOOD SPECIMENOrdering Facility: [facility] Address: [address] [place] [address] Performed By: #### 1 9123-9, 90239-4 ####[facility] MILLTOWNCLIA [id number] [place] [address] [place] Calcium [Mass/Vol] 9.2 mg/dL Normal 8.5-10.2 [facility] Comment on above: Order Comment: Speci men Type: BLOOD SPECIMENOrdering Facility: [facility] Address: [address] [place] [address] Performed By: #### 1 9123-9, 55500-6 ####[facility] MILLWGIANNALIA [id number] [place] [address] [place] Chloride [Moles/Vol] 100 mmol/L Normal 98-107 [facility] Comment on above: Order Comment: Speci men Type: BLOOD SPECIMENOrdering Facility: [facility] Address: [address] [place] [address] Performed By: #### 1 9123-9, 18026-0 ####[facility] MILLWNCLIA [id number] [place] [address] [place] CO2 [Moles/Vol] 28 mmol/L Normal 22-30 [facility] Comment on above: Order Comment: Speci men Type: BLOOD SPECIMENOrdering Facility: [facility] Address: [address] [place] [address] Performed By: #### 1 9123-9, 30946-2 ####[facility] MILLTOWNCLIA [id number] [place] [address] [place] Creatinine [Mass/Vol] 0.82 mg/dL Normal 0.73-1.22 [facility] Comment on above: Order Comment: Willam robles Type: BLOOD SPECIMENOrdering Facility: [facility] Address: [address] [place] [address] Performed By: #### 1 9123-9, 43336-7 ####[facility] [id number] [place] [address] [place] Creatinine and Glomerular filtration rate.predicted panel (S/P/Bld) 91 mL/min/1.73m??? Normal >=60 [facility] Comment on above: Order Comment: Willam robles Type: BLOOD SPECIMENOrdering Facility: [facility] Address: [address] [place] [address] Result Comment: Rod mated Glomerular Filtration Rate [...] actual GFR. Performed By: #### 1 9123-9, 87148-9 ####[facility] [id number] [place] [address] [place] Glucose [Mass/Vol] 201 mg/dL High 74-99 [facility] Comment on above: Order Comment: Willam robles Type: BLOOD SPECIMENOrdering Facility: [facility] Address: [address] [place] [address] Result Comment: The [place] Diabetes Association (ADA) provides guidance for cutoff [...] Standards of Medical Care in Diabetes 2016, [place] [employer]. Diabetes Care. 2016.39(Suppl 1). Performed By: #### 1 9123-9, 42261-8 ####[facility] ESPINALJEFFERYWNCBECKYA [id number] [place] [address] [place] Potassium [Moles/Vol] 3.7 mmol/L Normal 3.7-5.1 [facility] Comment on above: Order Comment: Speci men Type: BLOOD SPECIMENOrdering Facility: [facility] Address: [address] [place], [place] [address] Performed By: #### 1 9123-9, 75234-9 ####[facility]CBECKYA [id number] [place] [address] [place] Protein [Mass/Vol] 6.7 g/dL Normal 6.3-8.0 [facility] Comment on above: Order Comment: Speci men Type: BLOOD SPECIMENOrdering Facility: [facility] Address: [address] [place], [place] [address] Performed By: #### 1 9123-9, 85020-9 ####[facility] FLORIDAFALGUNIA [id number] [place] [address] [place] Sodium [Moles/Vol] 137 mmol/L Normal 136-144 [facility] Comment on above: Order Comment: Speci men Type: BLOOD SPECIMENOrdering Facility: [facility] Address: [address] [place] [address] Performed By: #### 1 9123-9, 93547-1 ####[facility]ID[facility]CL[facility] [id number] [place] [address] [place] Urea nitrogen [Mass/Vol] 14 mg/dL Normal 9-24 [facility] Comment on above: Order Comment: Speci men Type: BLOOD SPECIMENOrdering Facility: [facility] Address: [address] [place], [place] [address] Performed By: #### 1 9123-9, 03820-4 ####[facility] ESPINALWNCLIA [id number] [place], [place] [address] [place] [address] OF [place] MAGNESIUMon 07-06-2024 Magnesium [Mass/Vol] 1.2 mg/dL Low 1.7 - 2 .3 mg/dL [facility] Magnesium SerPl-mCncon 07-06 Magnesium [Mass/Vol] 1.2 mg/dL Low 1.7-2.3 [facility] Comment on above: Order Comment: Speci men Type: BLOOD SPECIMENOrdering Facility: [facility] Address: [address] [place] [address] Performed By: #### 1 9123-9, 68982-0 ####[facility] TEDDYBULLHEADNCLIA [id number] [address] No Panel InformationOrdered By: Cody Hurtado on 07-06-2024 Interpretation and review of laboratory results Abnormal [facility] UA DIP, URINE (POC)on 2024 BILIRUBIN UA (POCT) Negative Negative [facility] CLARITY UA (POCT) Clear [facility] COLOR UA (POCT) Yellow [facility] GLUCOSE UA (POCT) Negative Negative mg/dL [facility] Hemoglobin Ql (U) Negative Negative [facility] Interpretation and review of laboratory results Abnormal [facility] KETONE UA (POCT) Negative Negative mg/dL [facility] LEUKOCYTES UA (POCT) Negative Negative [facility] NITRITE UA (POCT) Negative Negative [facility] PH UA (POCT) 6.5 4.5 - 8.0 [facility] Protein Ql (U) 30 mg/dL Abnormal Negative [facility] SPECIFIC GRAVITY UA (POCT) 1.020 1.005 - 1.030 [facility] UROBILINOGEN UA (POCT) 1.0 Normal E.U./dL [facility] Location:[facility], [address], [place], [place], [address] [place] [address] POINT OF CARE [facility] CNPNon 06-30-2024 CNPN Normal [facility] CNOVon 06-28-2024 CNOV Normal [facility] COVID AND INFLUENZA A/B AND RSV PCR, ROUTINEon 06-28-2024 SARS-CoV-2 (COVID-19) RNA ROYCE+probe Ql (Unsp spec) SARS-COV-2 (AGENT OF COVID-19) RNA: Detected INFLUENZA A RNA: Not detected INFLUENZA B RNA: Not detected RESPIRATORY SYNCYTIAL VIRUS (RSV) RNA: Not detected Abnormal [facility] Comment on above: Performed By: #### C VFLRS ####[facility] LABCLIA [id number] [address] [place] STREP A MOLECULAR (POC)on Procedural Control Valid [facility] Strep A (POCT) Negative Negative [facility] CBC W Auto Differential pane l (Bld)on 06-21-2024 Basophils (Bld) [#/Vol] [facility] Basophils/100 WBC (Bld) 0.3 % [facility] Differential cell count method Nom (Bld) Auto [facility] Eosinophils (Bld) [#/Vol] 0.04 10*3/uL [facility] Eosinophils/100 WBC (Bld) 1.2 % [facility] Erythrocyte distribution width (RBC) [Ratio] 21.4 % High 11.5 - 15.0 % [facility] Hematocrit (Bld) [Volume fraction] 27.8 % Low 39.0 - 51.0 % [facility] Hemoglobin (Bld) [Mass/Vol] 8.7 g/dL Low 13.0 - 17.0 g/dL [facility] Immature granulocytes (Bld) [#/Vol] [facility] Immature granulocytes/100 WBC (Bld) 0.3 % [facility] Interpretation and review of laboratory results Abnormal [facility] Lymphocytes (Bld) [#/Vol] 0.73 10*3/uL Low [facility] Lymphocytes/100 WBC (Bld) 21.8 % [facility] MCH (RBC) [Entitic mass] 29.1 pg 26.0 - 34.0 pg [facility] MCHC (RBC) [Mass/Vol] 31.3 g/dL 30.5 - 36.0 g/dL [facility] MCV (RBC) [Entitic vol] 93.0 fL 80.0 - 100.0 fL [facility] Monocytes (Bld) [#/Vol] 0.35 10*3/uL [facility] Monocytes/100 WBC (Bld) 10.4 % [facility] Neutrophils (Bld) [#/Vol] 2.21 10*3/uL [facility] Neutrophils/100 WBC (Bld) 66.0 % [facility] Nucleated RBC (Bld) [#/Vol] NINF [facility] Nucleated RBC/100 WBC (Bld) [Ratio] 0.0 % /100 WBC [facility] Platelet mean volume (Bld) [Entitic vol] 9.1 fL 9.0 - 12.7 fL [facility] Platelets (Bld) [#/Vol] 88 10*3/uL Low [facility] Comment on above: No clot detected. RBC (Bld) [#/Vol] 2.99 10*6/uL Low 4.20 - 6.0 0 m/uL [facility] WBC (Bld) [#/Vol] 3.35 10*3/uL Low [facility] Basophils (Bld) [#/Vol] 10*3/uL Normal <0.11 [facility] Comment on above: Order Comment: Speci men Type: BLOOD SPECIMENOrdering Facility: [facility] Address: [address] [place] [address] Performed By: #### 5 7021-8 ####[facility] [id number] [address] STATES OF [facility] Basophils/100 WBC (Bld) 0.3 % Normal [facility] Comment on above: Order Comment: Speci men Type: BLOOD SPECIMENOrdering Facility: [facility] Address: [address] [place] [address] Performed By: #### 5 7021-8 ####[facility] [id number] [place] [address] [place] Differential cell count method Nom (Bld) Auto Normal [facility] Comment on above: Order Comment: Speci men Type: BLOOD SPECIMENOrdering Facility: [facility] Address: [address] [place] [address] Performed By: #### 5 7021-8 ####[facility] TEDDYBULLHEADBANG [id number] [place] [address] [place] Eosinophils (Bld) [#/Vol] 0.04 10*3/uL Normal <0.46 [facility] Comment on above: Order Comment: Speci men Type: BLOOD SPECIMENOrdering Facility: [facility] Address: [address] [place] [address] Performed By: #### 5 7021-8 ####[facility] FLORIDAGIANNAMckenna [id number] [place] [address] [place] Eosinophils/100 WBC (Bld) 1.2 % Normal [facility] Comment on above: Order Comment: Speci men Type: BLOOD SPECIMENOrdering Facility: [facility] Address: [address] [place] [address] Performed By: #### 5 7021-8 ####[facility]ENTERMckenna [id number] [place] [address] [place] Erythrocyte distribution width (RBC) [Ratio] 21.4 % High 11.5-15.0 [facility] Comment on above: Order Comment: Speci men Type: BLOOD SPECIMENOrdering Facility: [facility] Address: [address] [place] [address] Performed By: #### 5 7021-8 ####[facility]ENTERA [id number] [place] [address] [place] Hematocrit (Bld) [Volume fraction] 27.8 % Low 39.0-51.0 [facility] Comment on above: Order Comment: Speci men Type: BLOOD SPECIMENOrdering Facility: [facility] Address: [address] [place] [address] Performed By: #### 5 7021-8 ####[facility] TEDDYNiraliNCLIA [id number] [place] [address] [place] Hemoglobin (Bld) [Mass/Vol] 8.7 g/dL Low 13.0-17.0 [facility] Comment on above: Order Comment: Speci men Type: BLOOD SPECIMENOrdering Facility: [facility] Address: [address] [place] [address] Performed By: #### 5 7021-8 ####[facility] FL[facility]IDAGIANNALIA [id number] [place] [address] [place] Immature granulocytes (Bld) [#/Vol] 10*3/uL Normal <0.10 [facility] Comment on above: Order Comment: Speci men Type: BLOOD SPECIMENOrdering Facility: [facility] Address: [address] [place] [address] Performed By: #### 5 7021-8 ####[facility]ENTERA [id number] [place] [address] [place] Immature granulocytes/100 WBC (Bld) 0.3 % Normal [facility] Comment on above: Order Comment: Speci men Type: BLOOD SPECIMENOrdering Facility: [facility] Address: [address] [place] [address] Performed By: #### 5 7021-8 ####[facility] FL[facility]IDAGIANNALIA [id number] [place] [address] [place] Lymphocytes (Bld) [#/Vol] 0.73 10*3/uL Low 1.00-4.00 [facility] Comment on above: Order Comment: Speci men Type: BLOOD SPECIMENOrdering Facility: [facility] Address: [address] [place] [address] Performed By: #### 5 7021-8 ####[facility] FLORIDANCLI [id number] [place] [address] [place] Lymphocytes/100 WBC (Bld) 21.8 % Normal [facility] Comment on above: Order Comment: Speci men Type: BLOOD SPECIMENOrdering Facility: [facility] Address: [address] [place] [address] Performed By: #### 5 7021-8 ####[facility]ANCLIFEPOINT [facility] [id number] [place] [address] [place] MCH (RBC) [Entitic mass] 29.1 pg Normal 26.0-34.0 [facility] Comment on above: Order Comment: Speci men Type: BLOOD SPECIMENOrdering Facility: [facility] Address: [address] [place] [address] Performed By: #### 5 7021-8 ####[facility]CL[facility] [id number] [place] [address] [place] MCHC (RBC) [Mass/Vol] 31.3 g/dL Normal 30.5-36.0 [facility] Comment on above: Order Comment: Speci men Type: BLOOD SPECIMENOrdering Facility: [facility] Address: [address] [place] [address] Performed By: #### 5 7021-8 ####[facility] FL[facility]IDANCLIA [id number] [place] [address] [place] MCV (RBC) [Entitic vol] 93.0 fL Normal 80.0-100.0 [facility] Comment on above: Order Comment: Speci men Type: BLOOD SPECIMENOrdering Facility: [facility] Address: [address] [place] [address] Performed By: #### 5 7021-8 ####[facility] FL[facility]IDANCLI [id number] [place] [address] [place] Monocytes (Bld) [#/Vol] 0.35 10*3/uL Normal <0.87 [facility] Comment on above: Order Comment: Speci men Type: BLOOD SPECIMENOrdering Facility: [facility] Address: [address] [place] [address] Performed By: #### 5 7021-8 ####[facility] TEDDYBULLHEADFALGUNIA [id number] [place] [address] [place] Monocytes/100 WBC (Bld) 10.4 % Normal [facility] Comment on above: Order Comment: Speci men Type: BLOOD SPECIMENOrdering Facility: [facility] Address: [address] [place] [address] Performed By: #### 5 7021-8 ####[facility]CL[facility] [id number] [place] [address] [place] Neutrophils (Bld) [#/Vol] 2.21 10*3/uL Normal 1.45-7.50 [facility] Comment on above: Order Comment: Speci men Type: BLOOD SPECIMENOrdering Facility: [facility] Address: [address] [place] [address] Performed By: #### 5 7021-8 ####[facility]ENTERA [id number] [place] [address] [place] Neutrophils/100 WBC (Bld) 66.0 % Normal [facility] Comment on above: Order Comment: Speci men Type: BLOOD SPECIMENOrdering Facility: [facility] Address: [address] [place] [address] Performed By: #### 5 7021-8 ####[facility]IDANCLIA [id number] [place] [address] [place] Nucleated RBC (Bld) [#/Vol] 10*3/uL Normal <0.01 [facility] Comment on above: Order Comment: Speci men Type: BLOOD SPECIMENOrdering Facility: [facility] Address: [address] [place] [address] Performed By: #### 5 7021-8 ####[facility] FL[facility]IDANCLIA [id number] [place] [address] [place] Nucleated RBC/100 WBC (Bld) [Ratio] 0.0 /100 WBC Normal [facility] Comment on above: Order Comment: Speci men Type: BLOOD SPECIMENOrdering Facility: [facility] Address: [address] [place] [address] Performed By: #### 5 7021-8 ####[facility] FLORIDAFALGUNI [id number] [place] [address] [place] Platelet mean volume (Bld) [Entitic vol] 9.1 fL Normal 9.0-12.7 [facility] Comment on above: Order Comment: Speci men Type: BLOOD SPECIMENOrdering Facility: [facility] Address: [address] [place] [address] Performed By: #### 5 7021-8 ####[facility] FLORIDANCA [id number] [place] [address] [place] Platelets (Bld) [#/Vol] 88 10*3/uL Low 150-400 [facility] Comment on above: Order Comment: Speci men Type: BLOOD SPECIMENOrdering Facility: [facility] Address: [address] [place] [address] Result Comment: No c lot detected. Performed By: #### 5 7021-8 ####[facility]A [id number] [place] [address] [place] RBC (Bld) [#/Vol] 2.99 10*6/uL Low 4.20-6.00 [facility] Comment on above: Order Comment: Speci men Type: BLOOD SPECIMENOrdering Facility: [facility] Address: [address] [place] [address] Performed By: #### 5 7021-8 ####[facility] [id number] [place] [id number] [place] WBC (Bld) [#/Vol] 3.35 10*3/uL Low 3.70-11.00 [facility] Comment on above: Order Comment: Speci men Type: BLOOD SPECIMENOrdering Facility: [facility] Address: [address] [place] [address] Performed By: #### 5 7021-8 ####[facility] [id number] [place] [address] [place] CEA SerPl-ncon 06-21-2024 Carcinoembryonic Ag [Mass/Vol] 26.3 ng/mL High <=2.9 [facility] Comment on above: Order Comment: Speci men Type: BLOOD SPECIMENOrdering Facility: [facility] Address: [address] [place] [address] Result Comment: Carc inoembryonic antigen test is used as an aid in monitoring response to treatment or recurrence in patients with established colorectal, breast, lung, prostatic, pancreatic, and ovarian carcinomas. Clinical correlation is required.The Carcinoembryonic antigen test was performed using the Bryce Aspen Unicel DXI paramagnetic particle chemiluminescent immunoassay method. Results obtained with different assay methods or kits cannot be used interchangeably. Performed By: #### 2 039-6 ####[facility] LABCLIA [id number] [place] [address] [place] CNOVSPon 06-21-2024 CNOVSP Normal [facility] Comprehensive metabolic 2000 panelOrdered By: Cody Hurtado on 06-21-2024 Albumin [Mass/Vol] 3.5 g/dL Low 3.9 - 4.9 g/dL [facility] ALP [Catalytic activity/Vol] 71 U/L 38 - 113 U/L [facility] ALT [Catalytic activity/Vol] 8 U/L Low 10 - 54 U/L [facility] Anion gap [Moles/Vol] 8 mmol/L 8 - 15 mmol/L [facility] AST [Catalytic activity/Vol] 14 U/L 14 - 40 U/L [facility] Bilirubin [Mass/Vol] 0.8 mg/dL 0.2 - 1 .3 mg/dL [facility] Calcium [Mass/Vol] 8.5 mg/dL 8.5 - 10. 2 mg/dL [facility] Chloride [Moles/Vol] 102 mmol/L 98 - 10 7 mmol/L [facility] CO2 [Moles/Vol] 26 mmol/L 22 - 30 mmol/L [facility] Creatinine [Mass/Vol] 0.89 mg/dL 0.73 - 1.22 mg/dL [facility] GFR/1.73 sq M.predicted among non-blacks MDRD (S/P/Bld) [Vol rate/Area] 89 mL/min/{1.73_m2} - PINF [facility] Comment on above: Estimated Glomerular Filtration Rate [...] 162 mg/dL High 74 - 99 mg/dL [facility] Comment on above: The [place] Diabete s Association (ADA) provides guidance for [...] Standards of Medical Care in Diabetes 2016, [place] Diabetes Association. Diabetes Care. 2016.39(Suppl 1). Potassium [Moles/Vol] 3.5 mmol/L Low 3.7 - 5.1 mmol/L [facility] Protein [Mass/Vol] 6.3 g/dL 6.3 - 8.0 g/dL [facility] Sodium [Moles/Vol] 136 mmol/L 136 - 144 mmol/L [facility] Urea nitrogen [Mass/Vol] 20 mg/dL 9 - 24 mg/dL [facility] metabolic 2000 panelon 06-21-2024 Albumin [Mass/Vol] 3.5 g/dL Low 3.9-4.9 [facility] Comment on above: Order Comment: Speci men Type: BLOOD SPECIMENOrdering Facility: [facility] Address: [address] [place] [address] Performed By: #### 1 9123-9, 58412-5 ####[facility] MILLWFALGUNIA [id number] [place] [address] [place] ALP [Catalytic activity/Vol] 71 U/L Normal 38-113 [facility] Comment on above: Order Comment: Speci men Type: BLOOD SPECIMENOrdering Facility: [facility] Address: [address] [place] [address] Performed By: #### 1 9123-9, 93922-7 ####[facility] FLORIDAFALGUNIA [id number] [place] [address] [place] ALT [Catalytic activity/Vol] 8 U/L Low 10-54 [facility] Comment on above: Order Comment: Speci men Type: BLOOD SPECIMENOrdering Facility: [facility] Address: [address] [place] [address] Performed By: #### 1 9123-9, 76407-8 ####[facility] FLORIDAFALGUNIA [id number] [place] [address] [place] Anion gap [Moles/Vol] 8 mmol/L Normal 8-15 [facility] Comment on above: Order Comment: Speci men Type: BLOOD SPECIMENOrdering Facility: [facility] Address: [address] [place] [address] Performed By: #### 1 9123-9, 83565-4 ####[facility] FLORIDANCLIA [id number] [place] [address] [place] AST [Catalytic activity/Vol] 14 U/L Normal 14-40 [facility] Comment on above: Order Comment: Speci men Type: BLOOD SPECIMENOrdering Facility: [facility] Address: [address] [place], [place] [address] Performed By: #### 1 9123-9, 63455-9 ####[facility]PITALLIA [id number] [place] [address] [place] Bilirubin [Mass/Vol] 0.8 mg/dL Normal 0.2-1.3 [facility] Comment on above: Order Comment: Speci men Type: BLOOD SPECIMENOrdering Facility: [facility] Address: [address] [place] [address] Performed By: #### 1 9123-9, 31504-8 ####[facility] [id number] [place] [address] [place] Calcium [Mass/Vol] 8.5 mg/dL Normal 8.5-10.2 [facility] Comment on above: Order Comment: Speci men Type: BLOOD SPECIMENOrdering Facility: [facility] Address: [address] [place] [address] Performed By: #### 1 9123-9, 22443-7 ####[facility] [id number] [place] [address] [place] Chloride [Moles/Vol] 102 mmol/L Normal 98-107 [facility] Comment on above: Order Comment: Speci men Type: BLOOD SPECIMENOrdering Facility: [facility] Address: [address] [place] [address] Performed By: #### 1 9123-9, 13619-2 ####[facility]ENTERA [id number] [place] [address] [place] CO2 [Moles/Vol] 26 mmol/L Normal 22-30 [facility] Comment on above: Order Comment: Speci men Type: BLOOD SPECIMENOrdering Facility: [facility] Address: [address] [place] [address] Performed By: #### 1 9123-9, 94165-6 ####[facility] FLORIDANCLI [id number] [place] [address] [place] Creatinine [Mass/Vol] 0.89 mg/dL Normal 0.73-1.22 [facility] Comment on above: Order Comment: Speci men Type: BLOOD SPECIMENOrdering Facility: [facility] Address: [address] [place] [address] Performed By: #### 1 9123-9, 13545-7 ####[facility] [id number] [place] [address] [place] Creatinine and Glomerular filtration rate.predicted panel (S/P/Bld) 89 mL/min/1.73m??? Normal >=60 [facility] Comment on above: Order Comment: Speci men Type: BLOOD SPECIMENOrdering Facility: [facility] Address: [address] [place] [address] Result Comment: Rod mated Glomerular Filtration Rate [...] actual GFR. Performed By: #### 1 9123-9, 79137-7 ####[facility] FLORIDANCLIA [id number] [place] [address] [place] Glucose [Mass/Vol] 162 mg/dL High 74-99 [facility] Comment on above: Order Comment: Speci men Type: BLOOD SPECIMENOrdering Facility: [facility] Address: [address] [place] [address] Result Comment: The [place] Diabetes Association (ADA) provides guidance for cutoff [...] Standards of Medical Care in Diabetes 2016, [place] Diabetes Association. Diabetes Care. 2016.39(Suppl 1). Performed By: #### 1 9123-9, 94725-5 ####[facility] FLORIDABANG [id number] [place] [address] [place] Potassium [Moles/Vol] 3.5 mmol/L Low 3.7-5.1 [facility] Comment on above: Order Comment: Speci men Type: BLOOD SPECIMENOrdering Facility: [facility] Address: [address] [place] [address] Performed By: #### 1 9123-9, 67084-0 ####[facility] CENTERMckenna [id number] [place] [address] [place] Protein [Mass/Vol] 6.3 g/dL Normal 6.3-8.0 [facility] Comment on above: Order Comment: Speci men Type: BLOOD SPECIMENOrdering Facility: [facility] Address: [address] [place] [address] Performed By: #### 1 9123-9, ####[facility] CENTERMckenna [id number] [place] [address] [place] Sodium [Moles/Vol] 136 mmol/L Normal 136-144 [facility] Comment on above: Order Comment: Speci men Type: BLOOD SPECIMENOrdering Facility: [facility] Address: [address] [place] [address] Performed By: #### 1 9123-9, 36286-4 ####[facility] MILLWNCLIA [id number] [place] [address] [place] Urea nitrogen [Mass/Vol] 20 mg/dL Normal 03-22 [facility] Comment on above: Order Comment: Speci men Type: BLOOD SPECIMENOrdering Facility: [facility] Address: [address] [place] [address] Performed By: #### 1 9123-9, 70252-4 ####[facility] MILLWNCLIA [id number] [place] [address] [place] MAGNESIUMon 06-21-2024 Magnesium [Mass/Vol] 1.5 mg/dL Low 1.7 - 2 .3 mg/dL [facility] Magnesium SerPl-mCncon 06-21 Magnesium [Mass/Vol] 1.5 mg/dL Low 1.7-2.3 [facility] Comment on above: Order Comment: Speci men Type: BLOOD SPECIMENOrdering Facility: [facility] Address: [address] [place] [address] Performed By: #### 1 9123-9, 54318-1 ####[facility]OSPITALLIA [id number] [place] [address] [place] No Panel InformationOrdered By: Cody Hurtado on 06-21-2024 Interpretation and review of laboratory results Abnormal [facility] CNPNon 06-15-2024 CNPN Normal [facility] CBC W Auto Differential pane l (Bld)on 06-08-2024 Basophils (Bld) [#/Vol] NINF [facility] Basophils/100 WBC (Bld) 0.0 % [facility] Differential cell count method Nom (Bld) Auto [facility] Eosinophils (Bld) [#/Vol] 0.04 10*3/uL NINF [facility] Eosinophils/100 WBC (Bld) 1.0 % [facility] Erythrocyte distribution width (RBC) [Ratio] 21.7 % High 11.5 - 15.0 % [facility] Hematocrit (Bld) [Volume fraction] 30.1 % Low 39.0 - 51.0 % [facility] Hemoglobin (Bld) [Mass/Vol] 9.3 g/dL Low 13.0 - 17.0 g/dL [facility] Immature granulocytes (Bld) [#/Vol] NINF [facility] Immature granulocytes/100 WBC (Bld) 0.3 % [facility] Interpretation and review of laboratory results Abnormal [facility] Lymphocytes (Bld) [#/Vol] 0.64 10*3/uL Low [facility] Lymphocytes/100 WBC (Bld) 16.7 % [facility] MCH (RBC) [Entitic mass] 29.3 pg 26.0 - 34.0 pg [facility] MCHC (RBC) [Mass/Vol] 30.9 g/dL 30.5 - 36.0 g/dL [facility] MCV (RBC) [Entitic vol] 95.0 fL 80.0 - 100.0 fL [facility] Monocytes (Bld) [#/Vol] 0.54 10*3/uL [facility] Monocytes/100 WBC (Bld) 14.1 % [facility] Neutrophils (Bld) [#/Vol] 2.60 10*3/uL [facility] Neutrophils/100 WBC (Bld) 67.9 % [facility] Nucleated RBC (Bld) [#/Vol] NINF [facility] Nucleated RBC/100 WBC (Bld) [Ratio] 0.0 % /100 WBC [facility] Platelet mean volume (Bld) [Entitic vol] 9.3 fL 9.0 - 12.7 fL [facility] Platelets (Bld) [#/Vol] 110 10*3/uL Low [facility] RBC (Bld) [#/Vol] 3.17 10*6/uL Low 4.20 - 6.0 0 m/uL [facility] WBC (Bld) [#/Vol] 3.83 10*3/uL [facility] Basophils (Bld) [#/Vol] 10*3/uL Normal <0.11 [facility] Comment on above: Order Comment: Speci men Type: BLOOD SPECIMENOrdering Facility: [facility] Address: [address] [place] [address] Performed By: #### 5 7021-8 ####[facility] TEDDYWGIANNALIA [id number] [place] [address] [place] Basophils/100 WBC (Bld) 0.0 % Normal [facility] Comment on above: Order Comment: Speci men Type: BLOOD SPECIMENOrdering Facility: [facility] Address: [address] [place] [address] Performed By: #### 5 7021-8 ####[facility] TEDDYBULLHEADGIANNALIA [id number] [place] [address] [place] Differential cell count method Nom (Bld) Auto Normal [facility] Comment on above: Order Comment: Speci men Type: BLOOD SPECIMENOrdering Facility: [facility] Address: [address] [place] [address] Performed By: #### 5 7021-8 ####[facility] FLORIDAGIANNABECKYA [id number] [place] [address] [place] Eosinophils (Bld) [#/Vol] 0.04 10*3/uL Normal <0.46 [facility] Comment on above: Order Comment: Speci men Type: BLOOD SPECIMENOrdering Facility: [facility] Address: [address] [place] [address] Performed By: #### 5 7021-8 ####[facility] FLORIDAFALGUNIA [id number] [place] [address] [place] Eosinophils/100 WBC (Bld) 1.0 % Normal [facility] Comment on above: Order Comment: Speci men Type: BLOOD SPECIMENOrdering Facility: [facility] Address: [address] [place] [address] Performed By: #### 5 7021-8 ####[facility] FLORIDANCLIA [id number] [place] [address] [place] Erythrocyte distribution width (RBC) [Ratio] 21.7 % High 11.5-15.0 [facility] Comment on above: Order Comment: Speci men Type: BLOOD SPECIMENOrdering Facility: [facility] Address: [address] [place] [address] Performed By: #### 5 7021-8 ####[facility]IDANCLIFEPOINT [facility]ALS [id number] [place] [address] [place] Hematocrit (Bld) [Volume fraction] 30.1 % Low 39.0-51.0 [facility] Comment on above: Order Comment: Speci men Type: BLOOD SPECIMENOrdering Facility: [facility] Address: [address] [place] [address] Performed By: #### 5 7021-8 ####[facility]ANCLIFEPOINT [facility] [id number] [place] [address] [place] Hemoglobin (Bld) [Mass/Vol] 9.3 g/dL Low 13.0-17.0 [facility] Comment on above: Order Comment: Speci men Type: BLOOD SPECIMENOrdering Facility: [facility] Address: [address] [place] [address] Performed By: #### 5 7021-8 ####[facility] FLORIDANCLIA [id number] [place] [address] [place] Immature granulocytes (Bld) [#/Vol] 10*3/uL Normal <0.10 [facility] Comment on above: Order Comment: Speci men Type: BLOOD SPECIMENOrdering Facility: [facility] Address: [address] [place] [address] Performed By: #### 5 7021-8 ####[facility]ENTERA [id number] [place] [address] [place] Immature granulocytes/100 WBC (Bld) 0.3 % Normal [facility] Comment on above: Order Comment: Speci men Type: BLOOD SPECIMENOrdering Facility: [facility] Address: [address] [place] [address] Performed By: #### 5 7021-8 ####[facility] MILLWNCLIA [id number] [place] [address] [place] Lymphocytes (Bld) [#/Vol] 0.64 10*3/uL Low 1.00-4.00 [facility] Comment on above: Order Comment: Speci men Type: BLOOD SPECIMENOrdering Facility: [facility] Address: [address] [place] [address] Performed By: #### 5 7021-8 ####[facility] ERWNCLIA [id number] [place] [address] [place] Lymphocytes/100 WBC (Bld) 16.7 % Normal [facility] Comment on above: Order Comment: Speci men Type: BLOOD SPECIMENOrdering Facility: [facility] Address: [address] [place] [address] Performed By: #### 5 7021-8 ####[facility] FLORIDANCLIA [id number] [place] [address] [place] MCH (RBC) [Entitic mass] 29.3 pg Normal 26.0-34.0 [facility] Comment on above: Order Comment: Speci men Type: BLOOD SPECIMENOrdering Facility: [facility] Address: [address] [place] [address] Performed By: #### 5 7021-8 ####[facility] MILLBULLHEADNCLIA [id number] [place] [address] [place] MCHC (RBC) [Mass/Vol] 30.9 g/dL Normal 30.5-36.0 [facility] Comment on above: Order Comment: Speci men Type: BLOOD SPECIMENOrdering Facility: [facility] Address: [address] [place] [address] Performed By: #### 5 7021-8 ####[facility]PITALLIA [id number] [place] [address] [place] MCV (RBC) [Entitic vol] 95.0 fL Normal 80.0-100.0 [facility] Comment on above: Order Comment: Speci men Type: BLOOD SPECIMENOrdering Facility: [facility] Address: [address] [place] [address] Performed By: #### 5 7021-8 ####[facility] [id number] [place] [address] [place] Monocytes (Bld) [#/Vol] 0.54 10*3/uL Normal <0.87 [facility] Comment on above: Order Comment: Speci men Type: BLOOD SPECIMENOrdering Facility: [facility] Address: [address] [place] [address] Performed By: #### 5 7021-8 ####[facility] [id number] [place] [address] [place] Monocytes/100 WBC (Bld) 14.1 % Normal [facility] Comment on above: Order Comment: Speci men Type: BLOOD SPECIMENOrdering Facility: [facility] Address: [address] [place] [address] Performed By: #### 5 7021-8 ####[facility] [id number] [place] [address] [place] Neutrophils (Bld) [#/Vol] 2.60 10*3/uL Normal 1.45-7.50 [facility] Comment on above: Order Comment: Speci men Type: BLOOD SPECIMENOrdering Facility: [facility] Address: [address] [place] [address] Performed By: #### 5 7021-8 ####[facility] [id number] [place] [address] [place] Neutrophils/100 WBC (Bld) 67.9 % Normal [facility] Comment on above: Order Comment: Speci men Type: BLOOD SPECIMENOrdering Facility: [facility] Address: [address] [place] [address] Performed By: #### 5 7021-8 ####[facility]ANCLIFE[facility] [id number] [place] [address] [place] Nucleated RBC (Bld) [#/Vol] 10*3/uL Normal <0.01 [facility] Comment on above: Order Comment: Speci men Type: BLOOD SPECIMENOrdering Facility: [facility] Address: [address] [place] [address] Performed By: #### 5 7021-8 ####[facility]ANCLIFE[facility] [id number] [place] [address] [place] Nucleated RBC/100 WBC (Bld) [Ratio] 0.0 /100 WBC Normal [facility] Comment on above: Order Comment: Speci men Type: BLOOD SPECIMENOrdering Facility: [facility] Address: [address] [place] [address] Performed By: #### 5 7021-8 ####[facility] [id number] [place] [address] [place] Platelet mean volume (Bld) [Entitic vol] 9.3 fL Normal 9.0-12.7 [facility] Comment on above: Order Comment: Speci men Type: BLOOD SPECIMENOrdering Facility: [facility] Address: [address] [place] [address] Performed By: #### 5 7021-8 ####[facility]OSPITALLIA [id number] [place] [address] [place] Platelets (Bld) [#/Vol] 110 10*3/uL Low 150-400 [facility] Comment on above: Order Comment: Speci men Type: BLOOD SPECIMENOrdering Facility: [facility] Address: [address] [place] [address] Performed By: #### 5 7021-8 ####[facility] FL[facility]IDANCLIA [id number] [place] [address] [place] RBC (Bld) [#/Vol] 3.17 10*6/uL Low 4.20-6.00 [facility] Comment on above: Order Comment: Speci men Type: BLOOD SPECIMENOrdering Facility: [facility] Address: [address] [place] [address] Performed By: #### 5 7021-8 ####[facility] FLORIDANCA [id number] [place] [address] [place] WBC (Bld) [#/Vol] 3.83 10*3/uL Normal 3.70-11.00 [facility] Comment on above: Order Comment: Speci men Type: BLOOD SPECIMENOrdering Facility: [facility] Address: [address] [place] [address] Performed By: #### 5 7021-8 ####[facility]ENTERA [id number] [place] [address] [place] [facility] Carcinoembryonic Ag [Mass/Vol] 40.5 ng/mL High <=2.9 [facility] Comment on above: Order Comment: Speci men Type: BLOOD SPECIMENOrdering Facility: [facility] Address: [address] [place] [address] Result Comment: Carc inoembryonic antigen test is used as an aid in monitoring response to treatment or recurrence in patients with established colorectal, breast, lung, prostatic, pancreatic, and ovarian carcinomas. Clinical correlation is required.The Carcinoembryonic antigen test was performed using the [employer] Unicel DXI paramagnetic particle chemiluminescent immunoassay method. Results obtained with different assay methods or kits cannot be used interchangeably. Performed By: #### 2 039-6 ####[facility] LABCLIA [id number] [address] [address] [place] Comprehensive metabolic 2000 panelOrdered By: Cody Hurtado on 06-08-2024 Albumin [Mass/Vol] 3.7 g/dL Low 3.9 - 4.9 g/dL [facility] ALP [Catalytic activity/Vol] 81 U/L 38 - 113 U/L [facility] ALT [Catalytic activity/Vol] 9 U/L Low 10 - 54 U/L [facility] Anion gap [Moles/Vol] 10 mmol/L 8 - 15 mmol/L [facility] AST [Catalytic activity/Vol] 13 U/L Low 14 - 40 U/L [facility] Bilirubin [Mass/Vol] 0.9 mg/dL 0.2 - 1 .3 mg/dL [facility] Calcium [Mass/Vol] 8.9 mg/dL 8.5 - 10. 2 mg/dL [facility] Chloride [Moles/Vol] 98 mmol/L 98 - 10 7 mmol/L [facility] CO2 [Moles/Vol] 27 mmol/L 22 - 30 mmol/L [facility] Creatinine [Mass/Vol] 0.76 mg/dL 0.73 - 1.22 mg/dL [facility] GFR/1.73 sq M.predicted among non-blacks MDRD (S/P/Bld) [Vol rate/Area] 93 mL/min/{1.73_m2} - PINF [facility] Comment on above: Estimated Glomerular Filtration Rate [...] 232 mg/dL High 74 - 99 mg/dL [facility] Comment on above: The [place] Diabete s Association (ADA) provides guidance for [...] Standards of Medical Care in Diabetes 2016, [place] [employer]. Diabetes Care. 2016.39(Suppl 1). Interpretation and review of laboratory results Abnormal [facility] Potassium [Moles/Vol] 3.6 mmol/L Low 3.7 - 5.1 mmol/L [facility] Protein [Mass/Vol] 6.4 g/dL 6.3 - 8.0 g/dL [facility] Sodium [Moles/Vol] 135 mmol/L Low 136 - 144 mmol/L [facility] Urea nitrogen [Mass/Vol] 13 mg/dL 9 - 24 mg/dL [facility] Comprehensive metabolic 2000 panelon 06-08-2024 Albumin [Mass/Vol] 3.7 g/dL Low 3.9-4.9 [facility] Comment on above: Order Comment: Speci margaret Type: BLOOD SPECIMENOrdering Facility: [facility] Address: [address] [place] [address] Performed By: #### 2 4328, ####[facility] ERWVTLIA [id number] [place] [address] [place] ALP [Catalytic activity/Vol] 81 U/L Normal 38-113 [facility] Comment on above: Order Comment: Patti men Type: BLOOD SPECIMENOrdering Facility: [facility] Address: [address] [place] [address] Performed By: #### 2 43209-03, ####[facility] MILLWNCLIA [id number] [place] [address] [place] ALT [Catalytic activity/Vol] 9 U/L Low 10-54 [facility] Comment on above: Order Comment: Speci men Type: BLOOD SPECIMENOrdering Facility: [facility] Address: [address] [place] [address] Performed By: #### 2 43209-03, ####[facility]PITALLIA [id number] [place] [address] [place] Anion gap [Moles/Vol] 10 mmol/L Normal 8-15 [facility] Comment on above: Order Comment: Speci men Type: BLOOD SPECIMENOrdering Facility: [facility] Address: [address] [place] [address] Performed By: #### 2 4323-8, ####[facility] MILLTOWNCLIA [id number] [place] [address] [place] AST [Catalytic activity/Vol] 13 U/L Low 14-40 [facility] Comment on above: Order Comment: Speci men Type: BLOOD SPECIMENOrdering Facility: [facility] Address: [address] [place] [address] Performed By: #### 2 4323-8, ####[facility] MILLWGIANNALIA [id number] [place] [address] [place] Bilirubin [Mass/Vol] 0.9 mg/dL Normal 0.2-1.3 [facility] Comment on above: Order Comment: Speci men Type: BLOOD SPECIMENOrdering Facility: [facility] Address: [address] [place] [address] Performed By: #### 2 4323-8, 85653-7 ####[facility] MILLTOWNCLIA [id number] [place] [address] [place] Calcium [Mass/Vol] 8.9 mg/dL Normal 8.5-10.2 [facility] Comment on above: Order Comment: Speci men Type: BLOOD SPECIMENOrdering Facility: [facility] Address: [address] [place] [address] Performed By: #### 2 4323-8, 93176-7 ####[facility] MILLTOWNCLIA [id number] [place] [address] [place] Chloride [Moles/Vol] 98 mmol/L Normal 98-107 [facility] Comment on above: Order Comment: Speci men Type: BLOOD SPECIMENOrdering Facility: [facility] Address: [address] [place], [place] [address] Performed By: #### 2 4323-8, 53235-2 ####[facility] [id number] [place] [address] [place] CO2 [Moles/Vol] 27 mmol/L Normal 22-30 [facility] Comment on above: Order Comment: Speci men Type: BLOOD SPECIMENOrdering Facility: [facility] Address: [address] [place] [address] Performed By: #### 2 4323-8, 59895-8 ####[facility] [id number] [place] [address] [place] Creatinine [Mass/Vol] 0.76 mg/dL Normal 0.73-1.22 [facility] Comment on above: Order Comment: Speci men Type: BLOOD SPECIMENOrdering Facility: [facility] Address: [address] [place] [address] Performed By: #### 2 4323-8, 58758-1 ####[facility] [id number] [address] OF [facility] Creatinine and Glomerular filtration rate.predicted panel (S/P/Bld) 93 mL/min/1.73m??? Normal >=60 [facility] Comment on above: Order Comment: Speci men Type: BLOOD SPECIMENOrdering Facility: [facility] Address: [address] [place] [address] Result Comment: Rod mated Glomerular Filtration Rate [...] GFR. Performed By: #### 2 4323-8, ####[facility]ORIDAGIANNALIMckenna [id number] [place] [address] [place] Glucose [Mass/Vol] 232 mg/dL High 74-99 [facility] Comment on above: Order Comment: Speci men Type: BLOOD SPECIMENOrdering Facility: [facility] Address: [address] [place] [address] Result Comment: The [place] Diabetes Association (ADA) provides guidance for cutoff [...] Standards of Medical Care in Diabetes 2016, [place] [employer]. Diabetes Care. 2016.39(Suppl 1). Performed By: #### 2 4323-8, ####[facility] [id number] [place] [address] [place] Potassium [Moles/Vol] 3.6 mmol/L Low 3.7-5.1 [facility] Comment on above: Order Comment: Patti men Type: BLOOD SPECIMENOrdering Facility: [facility] Address: [address] [place] [address] Performed By: #### 2 4323-8, ####[facility] [id number] [place] [address] [place] Protein [Mass/Vol] 6.4 g/dL Normal 6.3-8.0 [facility] Comment on above: Order Comment: Speci men Type: BLOOD SPECIMENOrdering Facility: [facility] Address: [address] [place] [address] Performed By: #### 2 4323-8, ####[facility]U TEDDYRYAN [id number] [place] [address] [place] Sodium [Moles/Vol] 135 mmol/L Low 136-144 [facility] Comment on above: Order Comment: Speci men Type: BLOOD SPECIMENOrdering Facility: [facility] Address: [address] [place], [place] [address] Performed By: #### 2 4323-8, ####[facility] ANGEL [id number] [place] [address] [place] Urea nitrogen [Mass/Vol] 13 mg/dL Normal 9-24 [facility] Comment on above: Order Comment: Speci men Type: BLOOD SPECIMENOrdering Facility: [facility] Address: [address] [place], [place] [address] Performed By: #### 2 4323-8, ####[facility] ANGEL [id number] [place] [address] [place] MAGNESIUMon 06-08-2024 Magnesium [Mass/Vol] 1.8 mg/dL 1.7 - 2 .3 mg/dL [facility] Magnesium SerPl-mCncon 06-08 Magnesium [Mass/Vol] 1.8 mg/dL Normal 1.7-2.3 [facility] Comment on above: Order Comment: Speci men Type: BLOOD SPECIMENOrdering Facility: [facility] Address: [address] [place] [address] Performed By: #### 2 4323-8, ####[facility] XIMENAWNCBECKYA [id number] [place] [address] [place] Magnesium [Mass/Vol]on 06-08 Interpretation and review of laboratory results Normal [facility] No Panel InformationOrdered By: Cody Hurtado on 06-08-2024 [facility] UA DIP, URINE (POC)on 2023 BILIRUBIN UA (POCT) Negative Negative [facility] CLARITY UA (POCT) Clear [facility] COLOR UA (POCT) Yellow [facility] GLUCOSE UA (POCT) Negative Negative mg/dL [facility] Hemoglobin Ql (U) Negative Negative [facility] KETONE UA (POCT) Negative Negative mg/dL [facility] LEUKOCYTES UA (POCT) Negative Negative [facility] NITRITE UA (POCT) Negative Negative [facility] PH UA (POCT) 6.5 4.5 - 8.0 [facility] Protein Ql (U) Negative Negative mg/dL [facility] SPECIFIC GRAVITY UA (POCT) 1.010 1.005 - 1.030 [facility] UROBILINOGEN UA (POCT) 0.2 Normal E.U./dL [facility] Location:[facility], [address] , [place], [place], [address] [place] [address] POINT OF CARE [facility] CBC W Auto Differential pane l (Bld)on 05-24-2024 Basophils (Bld) [#/Vol] [facility] Basophils/100 WBC (Bld) 0.0 % [facility] Differential cell count method Nom (Bld) Auto [facility] Eosinophils (Bld) [#/Vol] 0.06 10*3/uL [facility] Eosinophils/100 WBC (Bld) 2.3 % [facility] Erythrocyte distribution width (RBC) [Ratio] 21.2 % High 11.5 - 15.0 % [facility] Hematocrit (Bld) [Volume fraction] 30.1 % Low 39.0 - 51.0 % [facility] Hemoglobin (Bld) [Mass/Vol] 9.3 g/dL Low 13.0 - 17.0 g/dL [facility] Immature granulocytes (Bld) [#/Vol] [facility]F [facility] Immature granulocytes/100 WBC (Bld) 0.8 % [facility] Interpretation and review of laboratory results Abnormal [facility] Lymphocytes (Bld) [#/Vol] 0.80 10*3/uL Low [facility] Lymphocytes/100 WBC (Bld) 30.1 % [facility] MCH (RBC) [Entitic mass] 29.4 pg 26.0 - 34.0 pg [facility] MCHC (RBC) [Mass/Vol] 30.9 g/dL 30.5 - 36.0 g/dL [facility] MCV (RBC) [Entitic vol] 95.3 fL 80.0 - 100.0 fL [facility] Monocytes (Bld) [#/Vol] 0.35 10*3/uL [facility]F [facility] Monocytes/100 WBC (Bld) 13.2 % [facility] Neutrophils (Bld) [#/Vol] 1.43 10*3/uL Low [facility] Neutrophils/100 WBC (Bld) 53.6 % [facility] Nucleated RBC (Bld) [#/Vol] NINF [facility] Nucleated RBC/100 WBC (Bld) [Ratio] 0.0 % /100 WBC [facility] Platelet mean volume (Bld) [Entitic vol] 10.2 fL 9.0 - 12.7 fL [facility] Platelets (Bld) [#/Vol] 120 10*3/uL Low [facility] RBC (Bld) [#/Vol] 3.16 10*6/uL Low 4.20 - 6.0 0 m/uL [facility] WBC (Bld) [#/Vol] 2.66 10*3/uL Low [facility] Basophils (Bld) [#/Vol] 10*3/uL Normal <0.11 [facility] Comment on above: Order Comment: Speci men Type: BLOOD SPECIMENOrdering Facility: [facility] Address: [address] [place] [address] Performed By: #### 5 7021-8 ####[facility] [id number] [address] OF [facility] Basophils/100 WBC (Bld) 0.0 % Normal [facility] Comment on above: Order Comment: Speci men Type: BLOOD SPECIMENOrdering Facility: [facility] Address: [address] [place] [address] Performed By: #### 5 7021-8 ####[facility] [id number] [place] [address] [place] Differential cell count method Nom (Bld) Auto Normal [facility] Comment on above: Order Comment: Speci men Type: BLOOD SPECIMENOrdering Facility: [facility] Address: [address] [place] [address] Performed By: #### 5 7021-8 ####[facility] [id number] [place] [address] [place] Eosinophils (Bld) [#/Vol] 0.06 10*3/uL Normal <0.46 [facility] Comment on above: Order Comment: Speci men Type: BLOOD SPECIMENOrdering Facility: [facility] Address: [address] [place] [address] Performed By: #### 5 7021-8 ####[facility] [id number] [place] [address] [place] Eosinophils/100 WBC (Bld) 2.3 % Normal [facility] Comment on above: Order Comment: Speci men Type: BLOOD SPECIMENOrdering Facility: [facility] Address: [address] [place] [address] Performed By: #### 5 7021-8 ####[facility] [id number] [place] [address] [place] Erythrocyte distribution width (RBC) [Ratio] 21.2 % High 11.5-15.0 [facility] Comment on above: Order Comment: Speci men Type: BLOOD SPECIMENOrdering Facility: [facility] Address: [address] [place] [address] Performed By: #### 5 7021-8 ####[facility] [id number] [place] [address] [place] Hematocrit (Bld) [Volume fraction] 30.1 % Low 39.0-51.0 [facility] Comment on above: Order Comment: Speci men Type: BLOOD SPECIMENOrdering Facility: [facility] Address: [address] [place] [address] Performed By: #### 5 7021-8 ####[facility] TEDDYNiraliNCCARLO [id number] [place] [address] [place] Hemoglobin (Bld) [Mass/Vol] 9.3 g/dL Low 13.0-17.0 [facility] Comment on above: Order Comment: Speci men Type: BLOOD SPECIMENOrdering Facility: [facility] Address: [address] [place] [address] Performed By: #### 5 7021-8 ####[facility] [id number] [place] [address] [place] Immature granulocytes (Bld) [#/Vol] 10*3/uL Normal <0.10 [facility] Comment on above: Order Comment: Speci men Type: BLOOD SPECIMENOrdering Facility: [facility] Address: [address] [place] [address] Performed By: #### 5 7021-8 ####[facility] [id number] [place] [address] [place] Immature granulocytes/100 WBC (Bld) 0.8 % Normal [facility] Comment on above: Order Comment: Speci men Type: BLOOD SPECIMENOrdering Facility: [facility] Address: [address] [place] [address] Performed By: #### 5 7021-8 ####[facility] [id number] [place] [address] [place] Lymphocytes (Bld) [#/Vol] 0.80 10*3/uL Low 1.00-4.00 [facility] Comment on above: Order Comment: Speci men Type: BLOOD SPECIMENOrdering Facility: [facility] Address: [address] [place], [place] [address] Performed By: #### 5 7021-8 ####[facility] [id number] [place] [address] [place] Lymphocytes/100 WBC (Bld) 30.1 % Normal [facility] Comment on above: Order Comment: Speci men Type: BLOOD SPECIMENOrdering Facility: [facility] Address: [address] [place] [address] Performed By: #### 5 7021-8 ####[facility] [id number] [place] [address] [place] MCH (RBC) [Entitic mass] 29.4 pg Normal 26.0-34.0 [facility] Comment on above: Order Comment: Speci men Type: BLOOD SPECIMENOrdering Facility: [facility] Address: [address] [place] [address] Performed By: #### 5 7021-8 ####[facility] [id number] [place] [address] [place] MCHC (RBC) [Mass/Vol] 30.9 g/dL Normal 30.5-36.0 [facility] Comment on above: Order Comment: Speci men Type: BLOOD SPECIMENOrdering Facility: [facility] Address: [address] [place] [address] Performed By: #### 5 7021-8 ####[facility] [id number] [place] [address] [place] MCV (RBC) [Entitic vol] 95.3 fL Normal 80.0-100.0 [facility] Comment on above: Order Comment: Speci men Type: BLOOD SPECIMENOrdering Facility: [facility] Address: [address] [place] [address] Performed By: #### 5 7021-8 ####[facility] [id number] [place] [address] [place] Monocytes (Bld) [#/Vol] 0.35 10*3/uL Normal <0.87 [facility] Comment on above: Order Comment: Speci men Type: BLOOD SPECIMENOrdering Facility: [facility] Address: [address] [place] [address] Performed By: #### 5 7021-8 ####[facility]ITALLIA [id number] [place] [address] [place] Monocytes/100 WBC (Bld) 13.2 % Normal [facility] Comment on above: Order Comment: Speci men Type: BLOOD SPECIMENOrdering Facility: [facility] Address: [address] [place] [address] Performed By: #### 5 7021-8 ####[facility] [id number] [place] [address] [place] Neutrophils (Bld) [#/Vol] 1.43 10*3/uL Low 1.45-7.50 [facility] Comment on above: Order Comment: Speci men Type: BLOOD SPECIMENOrdering Facility: [facility] Address: [address] [place] [address] Performed By: #### 5 7021-8 ####[facility]IT[facility] [id number] [place] [address] [place] Neutrophils/100 WBC (Bld) 53.6 % Normal [facility] Comment on above: Order Comment: Speci men Type: BLOOD SPECIMENOrdering Facility: [facility] Address: [address] [place] [address] Performed By: #### 5 7021-8 ####[facility] [id number] [place] [address] [place] Nucleated RBC (Bld) [#/Vol] 10*3/uL Normal <0.01 [facility] Comment on above: Order Comment: Speci men Type: BLOOD SPECIMENOrdering Facility: [facility] Address: [address] [place] [address] Performed By: #### 5 7021-8 ####[facility] JENNIENCCARLO [id number] [place] [address] [place] Nucleated RBC/100 WBC (Bld) [Ratio] 0.0 /100 WBC Normal [facility] Comment on above: Order Comment: Speci men Type: BLOOD SPECIMENOrdering Facility: [facility] Address: [address] [place] [address] Performed By: #### 5 7021-8 ####[facility] TEDDYBULLHEADNCLIA [id number] [place] [address] [place] Platelet mean volume (Bld) [Entitic vol] 10.2 fL Normal 9.0-12.7 [facility] Comment on above: Order Comment: Speci men Type: BLOOD SPECIMENOrdering Facility: [facility] Address: [address] [place] [address] Performed By: #### 5 7021-8 ####[facility] [id number] [place] [address] [place] Platelets (Bld) [#/Vol] 120 10*3/uL Low 150-400 [facility] Comment on above: Order Comment: Speci men Type: BLOOD SPECIMENOrdering Facility: [facility] Address: [address] [place] [address] Performed By: #### 5 7021-8 ####[facility] [id number] [place] [address] [place] RBC (Bld) [#/Vol] 3.16 10*6/uL Low 4.20-6.00 [facility] Comment on above: Order Comment: Speci men Type: BLOOD SPECIMENOrdering Facility: [facility] Address: [address] [place] [address] Performed By: #### 5 7021-8 ####[facility] TEDDYBULLHEADNCLIA [id number] [place] [address] [place] WBC (Bld) [#/Vol] 2.66 10*3/uL Low 3.70-11.00 [facility] Comment on above: Order Comment: Speci men Type: BLOOD SPECIMENOrdering Facility: [facility] Address: [address] [place] [address] Performed By: #### 5 7021-8 ####[facility] [id number] [place] [address] [place] CEA SerPl-mCncon 05-24-2024 Carcinoembryonic Ag [Mass/Vol] 35.4 ng/mL High <=2.9 [facility] Comment on above: Order Comment: Speci men Type: BLOOD SPECIMENOrdering Facility: [facility] Address: [address] [place] [address] Result Comment: Carc inoembryonic antigen test is used as an aid in monitoring response to treatment or recurrence in patients with established colorectal, breast, lung, prostatic, pancreatic, and ovarian carcinomas. Clinical correlation is required.The Carcinoembryonic antigen test was performed using the [employer] Unicel DXI paramagnetic particle chemiluminescent immunoassay method. Results obtained with different assay methods or kits cannot be used interchangeably. Performed By: #### 2 039-6 ####[facility] LABCLIA [id number] [place] [address] [place] CNOVSPon 05-24-2024 CNOVSP Normal [facility] metabolic 2000 panelOrdered By: Silvina Garibay on 05-24-2024 Albumin [Mass/Vol] 3.7 g/dL Low 3.9 - 4.9 g/dL [facility] ALP [Catalytic activity/Vol] 95 U/L 38 - 113 U/L [facility] ALT [Catalytic activity/Vol] 8 U/L Low 10 - 54 U/L [facility] Anion gap [Moles/Vol] 8 mmol/L 8 - 15 mmol/L [facility] AST [Catalytic activity/Vol] 15 U/L 14 - 40 U/L [facility] Bilirubin [Mass/Vol] 0.5 mg/dL 0.2 - 1 .3 mg/dL [facility] Calcium [Mass/Vol] 9.3 mg/dL 8.5 - 10. 2 mg/dL [facility] Chloride [Moles/Vol] 102 mmol/L 98 - 10 7 mmol/L [facility] CO2 [Moles/Vol] 29 mmol/L 22 - 30 mmol/L [facility] Creatinine [Mass/Vol] 0.78 mg/dL 0.73 - 1.22 mg/dL [facility] GFR/1.73 sq M.predicted among non-blacks MDRD (S/P/Bld) [Vol rate/Area] 92 mL/min/{1.73_m2} - PINF [facility] Comment on above: Estimated Glomerular Filtration Rate [...] 183 mg/dL High 74 - 99 mg/dL [facility] Comment on above: The [place] Di[employer] s Association (ADA) provides guidance for [...] Standards of Medical Care in Diabetes 2016, [place] [employer]. Diabetes Care. 2016.39(Suppl 1). Interpretation and review of laboratory results Abnormal [facility] Potassium [Moles/Vol] 3.7 mmol/L 3.7 - 5.1 mmol/L [facility] Protein [Mass/Vol] 6.3 g/dL 6.3 - 8.0 g/dL [facility] Sodium [Moles/Vol] 139 mmol/L 136 - 144 mmol/L [facility] Urea nitrogen [Mass/Vol] 15 mg/dL 9 - 24 mg/dL [facility] Comprehensive metabolic 2000 panelon 05-24-2024 Albumin [Mass/Vol] 3.7 g/dL Low 3.9-4.9 [facility] Comment on above: Order Comment: Speci men Type: BLOOD SPECIMENOrdering Facility: [facility] Address: [address] [place] [address] Performed By: #### 2 4323-8, ####[facility] FLORIDAFALGUNIA [id number] [place] [address] [place] ALP [Catalytic activity/Vol] 95 U/L Normal 38-113 [facility] Comment on above: Order Comment: Speci men Type: BLOOD SPECIMENOrdering Facility: [facility] Address: [address] [place] [address] Performed By: #### 2 4323-8, ####[facility]PITALBECKYA [id number] [place] [address] [place] ALT [Catalytic activity/Vol] 8 U/L Low 10-54 [facility] Comment on above: Order Comment: Speci men Type: BLOOD SPECIMENOrdering Facility: [facility] Address: [address] [place] [address] Performed By: #### 2 4323-8, ####[facility]CL[facility] [id number] [place] [address] [place] Anion gap [Moles/Vol] 8 mmol/L Normal 8-15 [facility] Comment on above: Order Comment: Speci men Type: BLOOD SPECIMENOrdering Facility: [facility] Address: [address] [place] [address] Performed By: #### 2 4323-8, ####[facility] MILLTOWNCLIA [id number] [place] [address] [place] AST [Catalytic activity/Vol] 15 U/L Normal 14-40 [facility] Comment on above: Order Comment: Speci men Type: BLOOD SPECIMENOrdering Facility: [facility] Address: [address] [place] [address] Performed By: #### 2 432-8, ####[facility] MILLTOWNCLIA [id number] [place] [address] [place] Bilirubin [Mass/Vol] 0.5 mg/dL Normal 0.2-1.3 [facility] Comment on above: Order Comment: Speci men Type: BLOOD SPECIMENOrdering Facility: [facility] Address: [address] [place] [address] Performed By: #### 2 432-8, ####[facility] ERWNCLIA [id number] [place] [address] [place] Calcium [Mass/Vol] 9.3 mg/dL Normal 8.5-10.2 [facility] Comment on above: Order Comment: Speci men Type: BLOOD SPECIMENOrdering Facility: [facility] Address: [address] [place] [address] Performed By: #### 2 4323-8, ####[facility] MILLTOWNCLIA [id number] [place] [address] [place] Chloride [Moles/Vol] 102 mmol/L Normal 98-107 [facility] Comment on above: Order Comment: Speci men Type: BLOOD SPECIMENOrdering Facility: [facility] Address: [address] [place] [address] Performed By: #### 2 4323-8, ####[facility] MILLTOWNCLIA [id number] [place] [address] [place] CO2 [Moles/Vol] 29 mmol/L Normal 22-30 [facility] Comment on above: Order Comment: Speci margaret Type: BLOOD SPECIMENOrdering Facility: [facility] Address: [address] [place] [address] Performed By: #### 2 4323-8, 91423-7 ####[facility]IDAABNG [id number] [place] [address] [place] Creatinine [Mass/Vol] 0.78 mg/dL Normal 0.73-1.22 [facility] Comment on above: Order Comment: Speci men Type: BLOOD SPECIMENOrdering Facility: [facility] Address: [address] [place] [address] Performed By: #### 2 4323-8, ####[facility] CENTERMckenna [id number] [place] [address] [place] Creatinine and Glomerular filtration rate.predicted panel (S/P/Bld) 92 mL/min/1.73m??? Normal >=60 [facility] Comment on above: Order Comment: Willam robles Type: BLOOD SPECIMENOrdering Facility: [facility] Address: [address] [place] [address] Result Comment: Rod mated Glomerular Filtration Rate [...] GFR. Performed By: #### 2 4323-8, ####[facility] FLORIDANCLIA [id number] [place] [address] [place] Glucose [Mass/Vol] 183 mg/dL High 74-99 [facility] Comment on above: Order Comment: Speci men Type: BLOOD SPECIMENOrdering Facility: [facility] Address: [address] [place], [place] [address] Result Comment: The [place] Diabetes Association (ADA) provides guidance for cutoff [...] Standards of Medical Care in Diabetes 2016, [place] [employer]. Diabetes Care. 2016.39(Suppl 1). Performed By: #### 2 4323-8, ####[facility]ENTERA [id number] [place] [address] [place] Potassium [Moles/Vol] 3.7 mmol/L Normal 3.7-5.1 [facility] Comment on above: Order Comment: Willam robles Type: BLOOD SPECIMENOrdering Facility: [facility] Address: [address] [place] [address] Performed By: #### 2 4323-8, ####[facility] ERWVTLIA [id number] [place] [address] [place] Protein [Mass/Vol] 6.3 g/dL Normal 6.3-8.0 [facility] Comment on above: Order Comment: Willam robles Type: BLOOD SPECIMENOrdering Facility: [facility] Address: [address] [place], [place] [address] Performed By: #### 2 4323-, ####[facility] MILLWNCLIA [id number] [place] [address] [place] Sodium [Moles/Vol] 139 mmol/L Normal 136-144 [facility] Comment on above: Order Comment: Speci men Type: BLOOD SPECIMENOrdering Facility: [facility] Address: [address] [place] [address] Performed By: #### 2 4323-8, ####[facility] TEDDYBULLHEADNCLIA [id number] [place] [address] [place] Urea nitrogen [Mass/Vol] 15 mg/dL Normal 9-24 [facility] Comment on above: Order Comment: Speci men Type: BLOOD SPECIMENOrdering Facility: [facility] Address: [address] [place] [address] Performed By: #### 2 4323-8, ####[facility] FLORIDANCLI [id number] [place] [address] [place] MAGNESIUMon 05-24-2024 Magnesium [Mass/Vol] 1.6 mg/dL Low 1.7 - 2 .3 mg/dL [facility] Magnesium SerPl-mCncon 05-24 Magnesium [Mass/Vol] 1.6 mg/dL Low 1.7-2.3 [facility] Comment on above: Order Comment: Speci men Type: BLOOD SPECIMENOrdering Facility: [facility] Address: [address] [place] [address] Performed By: #### 2 4323-8, ####[facility]ENTERA [id number] [place] [address] [place] Magnesium [Mass/Vol]on 05-24 Interpretation and review of laboratory results Abnormal [facility] CBC W Auto Differential pane l (Bld)on 05-11-2024 Basophils (Bld) [#/Vol] [facility]F [facility] Basophils/100 WBC (Bld) 0.3 % [facility] Differential cell count method Nom (Bld) Auto [facility] Eosinophils (Bld) [#/Vol] 0.05 10*3/uL NINF [facility] Eosinophils/100 WBC (Bld) 1.5 % [facility] Erythrocyte distribution width (RBC) [Ratio] 22.5 % High 11.5 - 15.0 % [facility] Hematocrit (Bld) [Volume fraction] 31.1 % Low 39.0 - 51.0 % [facility] Hemoglobin (Bld) [Mass/Vol] 9.7 g/dL Low 13.0 - 17.0 g/dL [facility] Immature granulocytes (Bld) [#/Vol] [facility]F [facility] Immature granulocytes/100 WBC (Bld) 0.3 % [facility] Interpretation and review of laboratory results Abnormal [facility] Lymphocytes (Bld) [#/Vol] 0.73 10*3/uL Low [facility] Lymphocytes/100 WBC (Bld) 22.0 % [facility] MCH (RBC) [Entitic mass] 29.6 pg 26.0 - 34.0 pg [facility] MCHC (RBC) [Mass/Vol] 31.2 g/dL 30.5 - 36.0 g/dL [facility] MCV (RBC) [Entitic vol] 94.8 fL 80.0 - 100.0 fL [facility] Monocytes (Bld) [#/Vol] 0.45 10*3/uL [facility] Monocytes/100 WBC (Bld) 13.6 % [facility] Neutrophils (Bld) [#/Vol] 2.07 10*3/uL [facility] Neutrophils/100 WBC (Bld) 62.3 % [facility] Nucleated RBC (Bld) [#/Vol] [facility]F [facility] Nucleated RBC/100 WBC (Bld) [Ratio] 0.0 % /100 WBC [facility] Platelet mean volume (Bld) [Entitic vol] 9.1 fL 9.0 - 12.7 fL [facility] Platelets (Bld) [#/Vol] 118 10*3/uL Low [facility] RBC (Bld) [#/Vol] 3.28 10*6/uL Low 4.20 - 6.0 0 m/uL [facility] WBC (Bld) [#/Vol] 3.32 10*3/uL Low [facility] Basophils (Bld) [#/Vol] 10*3/uL Normal <0.11 [facility] Comment on above: Order Comment: Speci men Type: BLOOD SPECIMENOrdering Facility: [facility] Address: [address] [place] [address] Performed By: #### 5 7021-8 ####[facility] MILLWNCLIA [id number] [place] [address] [place] Basophils/100 WBC (Bld) 0.3 % Normal [facility] Comment on above: Order Comment: Speci men Type: BLOOD SPECIMENOrdering Facility: [facility] Address: [address] [place] [address] Performed By: #### 5 7021-8 ####[facility] ERWNCLIA [id number] [place] [address] [place] Differential cell count method Nom (Bld) Auto Normal [facility] Comment on above: Order Comment: Speci men Type: BLOOD SPECIMENOrdering Facility: [facility] Address: [address] [place] [address] Performed By: #### 5 7021-8 ####[facility] ERWNCLIA [id number] [place] [address] [place] Eosinophils (Bld) [#/Vol] 0.05 10*3/uL Normal <0.46 [facility] Comment on above: Order Comment: Speci men Type: BLOOD SPECIMENOrdering Facility: [facility] Address: [address] [place] [address] Performed By: #### 5 7021-8 ####[facility] MILLTOWNCLIA [id number] [place] [address] [place] Eosinophils/100 WBC (Bld) 1.5 % Normal [facility] Comment on above: Order Comment: Speci men Type: BLOOD SPECIMENOrdering Facility: [facility] Address: [address] [place] [address] Performed By: #### 5 7021-8 ####[facility] MILLTOWNCLIA [id number] [place] [address] [place] Erythrocyte distribution width (RBC) [Ratio] 22.5 % High 11.5-15.0 [facility] Comment on above: Order Comment: Speci men Type: BLOOD SPECIMENOrdering Facility: [facility] Address: [address] [place] [address] Performed By: #### 5 7021-8 ####[facility] FLORIDABANG [id number] [place] [address] [place] Hematocrit (Bld) [Volume fraction] 31.1 % Low 39.0-51.0 [facility] Comment on above: Order Comment: Speci men Type: BLOOD SPECIMENOrdering Facility: [facility] Address: [address] [place] [address] Performed By: #### 5 7021-8 ####[facility] FLORIDANCCARLO [id number] [place] [address] [place] Hemoglobin (Bld) [Mass/Vol] 9.7 g/dL Low 13.0-17.0 [facility] Comment on above: Order Comment: Speci men Type: BLOOD SPECIMENOrdering Facility: [facility] Address: [address] [place] [address] Performed By: #### 5 7021-8 ####[facility] FL[facility]IDAB[facility] [id number] [place] [address] [place] Immature granulocytes (Bld) [#/Vol] 10*3/uL Normal <0.10 [facility] Comment on above: Order Comment: Speci men Type: BLOOD SPECIMENOrdering Facility: [facility] Address: [address] [place] [address] Performed By: #### 5 7021-8 ####[facility] FLORIDANCLIA [id number] [place] [address] [place] Immature granulocytes/100 WBC (Bld) 0.3 % Normal [facility] Comment on above: Order Comment: Speci men Type: BLOOD SPECIMENOrdering Facility: [facility] Address: [address] [place] [address] Performed By: #### 5 7021-8 ####[facility] TEDDYNiraliNCCARLO [id number] [place] [address] [place] Lymphocytes (Bld) [#/Vol] 0.73 10*3/uL Low 1.00-4.00 [facility] Comment on above: Order Comment: Speci men Type: BLOOD SPECIMENOrdering Facility: [facility] Address: [address] [place] [address] Performed By: #### 5 7021-8 ####[facility]IDANCLIFEPOINT [facility] [id number] [place] [address] [place] Lymphocytes/100 WBC (Bld) 22.0 % Normal [facility] Comment on above: Order Comment: Speci men Type: BLOOD SPECIMENOrdering Facility: [facility] Address: [address] [place] [address] Performed By: #### 5 7021-8 ####[facility] [id number] [place] [address] [place] MCH (RBC) [Entitic mass] 29.6 pg Normal 26.0-34.0 [facility] Comment on above: Order Comment: Speci men Type: BLOOD SPECIMENOrdering Facility: [facility] Address: [address] [place] [address] Performed By: #### 5 7021-8 ####[facility] FLORIDANCLIA [id number] [place] [address] [place] MCHC (RBC) [Mass/Vol] 31.2 g/dL Normal 30.5-36.0 [facility] Comment on above: Order Comment: Speci men Type: BLOOD SPECIMENOrdering Facility: [facility] Address: [address] [place], [place] [address] Performed By: #### 5 7021-8 ####[facility] FLORIDANCLIA [id number] [place] [address] [place] MCV (RBC) [Entitic vol] 94.8 fL Normal 80.0-100.0 [facility] Comment on above: Order Comment: Speci men Type: BLOOD SPECIMENOrdering Facility: [facility] Address: [address] [place] [address] Performed By: #### 5 7021-8 ####[facility] FLORIDANCLIA [id number] [place] [address] [place] Monocytes (Bld) [#/Vol] 0.45 10*3/uL Normal <0.87 [facility] Comment on above: Order Comment: Speci men Type: BLOOD SPECIMENOrdering Facility: [facility] Address: [address] [place] [address] Performed By: #### 5 7021-8 ####[facility] FLORIDANCLIA [id number] [place] [address] [place] Monocytes/100 WBC (Bld) 13.6 % Normal [facility] Comment on above: Order Comment: Speci men Type: BLOOD SPECIMENOrdering Facility: [facility] Address: [address] [place] [address] Performed By: #### 5 7021-8 ####[facility]PITALLIA [id number] [place] [address] [place] Neutrophils (Bld) [#/Vol] 2.07 10*3/uL Normal 1.45-7.50 [facility] Comment on above: Order Comment: Speci men Type: BLOOD SPECIMENOrdering Facility: [facility] Address: [address] [place] [address] Performed By: #### 5 7021-8 ####[facility] [id number] [place] [address] [place] Neutrophils/100 WBC (Bld) 62.3 % Normal [facility] Comment on above: Order Comment: Speci men Type: BLOOD SPECIMENOrdering Facility: [facility] Address: [address] [place] [address] Performed By: #### 5 7021-8 ####[facility] TEDDYBULLHEADBANG [id number] [place] [address] [place] Nucleated RBC (Bld) [#/Vol] 10*3/uL Normal <0.01 [facility] Comment on above: Order Comment: Speci men Type: BLOOD SPECIMENOrdering Facility: [facility] Address: [address] [place] [address] Performed By: #### 5 7021-8 ####[facility]AB[facility] [id number] [place] [address] [place] Nucleated RBC/100 WBC (Bld) [Ratio] 0.0 /100 WBC Normal [facility] Comment on above: Order Comment: Speci men Type: BLOOD SPECIMENOrdering Facility: [facility] Address: [address] [place] [address] Performed By: #### 5 7021-8 ####[facility] [id number] [place] [address] [place] Platelet mean volume (Bld) [Entitic vol] 9.1 fL Normal 9.0-12.7 [facility] Comment on above: Order Comment: Speci men Type: BLOOD SPECIMENOrdering Facility: [facility] Address: [address] [place] [address] Performed By: #### 5 7021-8 ####[facility] FLORIDANCLIA [id number] [place] [address] [place] Platelets (Bld) [#/Vol] 118 10*3/uL Low 150-400 [facility] Comment on above: Order Comment: Speci men Type: BLOOD SPECIMENOrdering Facility: [facility] Address: [address] [place] [address] Performed By: #### 5 7021-8 ####[facility] TEDDYWNCLIA [id number] [place] [address] [place] RBC (Bld) [#/Vol] 3.28 10*6/uL Low 4.20-6.00 [facility] Comment on above: Order Comment: Speci men Type: BLOOD SPECIMENOrdering Facility: [facility] Address: [address] [place] [address] Performed By: #### 5 7021-8 ####[facility] FL[facility]IDANCLIA [id number] [place] [address] [place] WBC (Bld) [#/Vol] 3.32 10*3/uL Low 3.70-11.00 [facility] Comment on above: Order Comment: Speci men Type: BLOOD SPECIMENOrdering Facility: [facility] Address: [address] [place] [address] Performed By: #### 5 7021-8 ####[facility] FL[facility]IDANCLIA [id number] [place] [address] [place] [facility]A [facility] Carcinoembryonic Ag [Mass/Vol] 28.1 ng/mL High <=2.9 [facility] Comment on above: Order Comment: Speci men Type: BLOOD SPECIMENOrdering Facility: [facility] Address: [address] [place] [address] Result Comment: Carc inoembryonic antigen test is used as an aid in monitoring response to treatment or recurrence in patients with established colorectal, breast, lung, prostatic, pancreatic, and ovarian carcinomas. Clinical correlation is required.The Carcinoembryonic antigen test was performed using the [employer] DXI paramagnetic particle chemiluminescent immunoassay method. Results obtained with different assay methods or kits cannot be used interchangeably. Performed By: #### 2 039-6 ####[facility] LABCLIA [id number] [place] [address] [place] Comprehensive metabolic 2000 panelOrdered By: Silvina Garibay on 05-11-2024 Albumin [Mass/Vol] 3.9 g/dL 3.9 - 4.9 g/dL [facility] ALP [Catalytic activity/Vol] 128 U/L High 38 - 113 U/L [facility] ALT [Catalytic activity/Vol] 11 U/L 10 - 54 U/L [facility] Anion gap [Moles/Vol] 10 mmol/L 8 - 15 mmol/L [facility] AST [Catalytic activity/Vol] 17 U/L 14 - 40 U/L [facility] Bilirubin [Mass/Vol] 0.6 mg/dL 0.2 - 1 .3 mg/dL [facility] Calcium [Mass/Vol] 9.1 mg/dL 8.5 - 10. 2 mg/dL [facility] Chloride [Moles/Vol] 100 mmol/L 98 - 10 7 mmol/L [facility] CO2 [Moles/Vol] 26 mmol/L 22 - 30 mmol/L [facility] Creatinine [Mass/Vol] 0.82 mg/dL 0.73 - 1.22 mg/dL [facility] GFR/1.73 sq M.predicted among non-blacks MDRD (S/P/Bld) [Vol rate/Area] 91 mL/min/{1.73_m2} - PINF [facility] Comment on above: Estimated Glomerular Filtration Rate [...] 259 mg/dL High 74 - 99 mg/dL [facility] Comment on above: The [place] Di[employer] s Association (ADA) provides guidance for [...] Standards of Medical Care in Diabetes 2016, [place] [employer]. Diabetes Care. 2016.39(Suppl 1). Interpretation and review of laboratory results Abnormal [facility] Potassium [Moles/Vol] 3.7 mmol/L 3.7 - 5.1 mmol/L [facility] Protein [Mass/Vol] 6.6 g/dL 6.3 - 8.0 g/dL [facility] Sodium [Moles/Vol] 136 mmol/L 136 - 144 mmol/L [facility] Urea nitrogen [Mass/Vol] 18 mg/dL 9 - 24 mg/dL [facility] Comprehensive metabolic 2000 panelon 05-11-2024 Albumin [Mass/Vol] 3.9 g/dL Normal 3.9-4.9 [facility] Comment on above: Order Comment: Willam robles Type: BLOOD SPECIMENOrdering Facility: [facility] Address: [address] [place] [address] Performed By: #### 2 4323-8, ####[facility] [id number] [place] [address] [place] ALP [Catalytic activity/Vol] 128 U/L High 38-113 [facility] Comment on above: Order Comment: Patti margaret Type: BLOOD SPECIMENOrdering Facility: [facility] Address: [address] [place] [address] Performed By: #### 2 4323-8, ####[facility] [id number] [place] [address] [place] ALT [Catalytic activity/Vol] 11 U/L Normal 10-54 [facility] Comment on above: Order Comment: Speci men Type: BLOOD SPECIMENOrdering Facility: [facility] Address: [address] [place] [address] Performed By: #### 2 4323-8, ####[facility] MILLTOWNCLIA [id number] [place] [address] [place] Anion gap [Moles/Vol] 10 mmol/L Normal 8-15 [facility] Comment on above: Order Comment: Speci men Type: BLOOD SPECIMENOrdering Facility: [facility] Address: [address] [place] [address] Performed By: #### 2 4323-8, ####[facility] MILLTOWNCLIA [id number] [place] [address] [place] AST [Catalytic activity/Vol] 17 U/L Normal 14-40 [facility] Comment on above: Order Comment: Speci men Type: BLOOD SPECIMENOrdering Facility: [facility] Address: [address] [place], [place] [address] Performed By: #### 2 432-8, ####[facility] MILLTOWNCLIA [id number] [place] [address] [place] Bilirubin [Mass/Vol] 0.6 mg/dL Normal 0.2-1.3 [facility] Comment on above: Order Comment: Speci men Type: BLOOD SPECIMENOrdering Facility: [facility] Address: [address] [place] [address] Performed By: #### 2 4328, ####[facility] MILLTOWNCLIA [id number] [place] [address] [place] Calcium [Mass/Vol] 9.1 mg/dL Normal 8.5-10.2 [facility] Comment on above: Order Comment: Speci men Type: BLOOD SPECIMENOrdering Facility: [facility] Address: [address] [place] [address] Performed By: #### 2 4323-8, ####[facility]IDANCLIA [id number] [place] [address] [place] Chloride [Moles/Vol] 100 mmol/L Normal 98-107 [facility] Comment on above: Order Comment: Speci men Type: BLOOD SPECIMENOrdering Facility: [facility] Address: [address] [place] [address] Performed By: #### 2 4323-8, 33433-6 ####[facility] FLORIDANCA [id number] [place] [address] [place] CO2 [Moles/Vol] 26 mmol/L Normal 22-30 [facility] Comment on above: Order Comment: Speci men Type: BLOOD SPECIMENOrdering Facility: [facility] Address: [address] [place] [address] Performed By: #### 2 4323-8, 16902-1 ####[facility]PITALLIA [id number] [place] [address] [place] Creatinine [Mass/Vol] 0.82 mg/dL Normal 0.73-1.22 [facility] Comment on above: Order Comment: Speci men Type: BLOOD SPECIMENOrdering Facility: [facility] Address: [address] [place] [address] Performed By: #### 2 4323-8, 35104-2 ####[facility]PITALLIA [id number] [place] [address] [place] Creatinine and Glomerular filtration rate.predicted panel (S/P/Bld) 91 mL/min/1.73m??? Normal >=60 [facility] Comment on above: Order Comment: Speci men Type: BLOOD SPECIMENOrdering Facility: [facility] Address: [address] [place] [address] Result Comment: Rod mated Glomerular Filtration Rate [...] reflect actual GFR. Performed By: #### 2 432-8, ####[facility] TEDDYCAROLLIMckenna [id number] [place] [address] [place] Glucose [Mass/Vol] 259 mg/dL High 74-99 [facility] Comment on above: Order Comment: Willam robles Type: BLOOD SPECIMENOrdering Facility: [facility] Address: [address] [place] [address] Result Comment: The [place] [employer] (ADA) provides guidance for cutoff [...] Standards of Medical Care in Diabetes 2016, [place] [employer]. Diabetes Care. 2016.39(Suppl 1). Performed By: #### 2 43209-03, ####[facility]IDANCLIA [id number] [place] [address] [place] Potassium [Moles/Vol] 3.7 mmol/L Normal 3.7-5.1 [facility] Comment on above: Order Comment: Willam robles Type: BLOOD SPECIMENOrdering Facility: [facility] Address: [address] [place] [address] Performed By: #### 2 4323-8, ####[facility]IDANCLIA [id number] [place] [address] [place] Protein [Mass/Vol] 6.6 g/dL Normal 6.3-8.0 [facility] Comment on above: Order Comment: Speci men Type: BLOOD SPECIMENOrdering Facility: [facility] Address: [address] [place] [address] Performed By: #### 2 4323-8, ####[facility] MILLWNCLIA [id number] [place] [address] [place] Sodium [Moles/Vol] 136 mmol/L Normal 136-144 [facility] Comment on above: Order Comment: Speci men Type: BLOOD SPECIMENOrdering Facility: [facility] Address: [address] [place] [address] Performed By: #### 2 4323-8, ####[facility] FLORIDANCLIMckenna [id number] [place] [address] [place] Urea nitrogen [Mass/Vol] 18 mg/dL Normal 9-24 [facility] Comment on above: Order Comment: Speci men Type: BLOOD SPECIMENOrdering Facility: [facility] Address: [address] [place] [address] Performed By: #### 2 4323-8, ####[facility] FLORIDANCLIA [id number] [place] [address] [place] MAGNESIUMon 05-11-2024 Magnesium [Mass/Vol] 1.8 mg/dL 1.7 - 2 .3 mg/dL [facility] Magnesium SerPl-mCncon 05-11 Magnesium [Mass/Vol] 1.8 mg/dL Normal 1.7-2.3 [facility] Comment on above: Order Comment: Speci men Type: BLOOD SPECIMENOrdering Facility: [facility] Address: [address] [place] [address] Performed By: #### 2 4323-8, ####[facility] MILLBULLHEADNCLIA [id number] [place] [id number] [place] Magnesium [Mass/Vol]on 05-11 Interpretation and review of laboratory results Normal [facility] No Panel InformationOrdered By: Silvina Garibay on 05-11-2024 [facility] UA DIP, URINE (POC)on 2023 BILIRUBIN UA (POCT) Negative Negative [facility] CLARITY UA (POCT) Clear [facility] COLOR UA (POCT) Yellow [facility] GLUCOSE UA (POCT) Negative Negative mg/dL [facility] Hemoglobin Ql (U) Negative Negative [facility] KETONE UA (POCT) Negative Negative mg/dL [facility] LEUKOCYTES UA (POCT) Negative Negative [facility] NITRITE UA (POCT) Negative Negative [facility] PH UA (POCT) 7.5 4.5 - 8.0 [facility] Protein Ql (U) Negative Negative mg/dL [facility] SPECIFIC GRAVITY UA (POCT) 1.020 1.005 - 1.030 [facility] UROBILINOGEN UA (POCT) 0.2 Normal E.U./dL [facility] Location:[facility], [address], [place], [place], [id number] [place] [address] POINT OF CARE [facility] CBC W Auto Differential pane l (Bld)on 04-26-2024 Basophils (Bld) [#/Vol] [facility]F [facility] Basophils/100 WBC (Bld) 0.0 % [facility] Differential cell count method Nom (Bld) Auto [facility] Eosinophils (Bld) [#/Vol] 0.07 10*3/uL [facility] Eosinophils/100 WBC (Bld) 2.0 % [facility] Erythrocyte distribution width (RBC) [Ratio] 22.9 % High 11.5 - 15.0 % [facility] Hematocrit (Bld) [Volume fraction] 32.7 % Low 39.0 - 51.0 % [facility] Hemoglobin (Bld) [Mass/Vol] 9.9 g/dL Low 13.0 - 17.0 g/dL [facility] Immature granulocytes (Bld) [#/Vol] 0.03 10*3/uL [facility] Immature granulocytes/100 WBC (Bld) 0.9 % [facility] Interpretation and review of laboratory results Abnormal [facility] Lymphocytes (Bld) [#/Vol] 0.82 10*3/uL Low [facility] Lymphocytes/100 WBC (Bld) 23.7 % [facility] MCH (RBC) [Entitic mass] 28.8 pg 26.0 - 34.0 pg [facility] MCHC (RBC) [Mass/Vol] 30.3 g/dL Low 30.5 - 36.0 g/dL [facility] MCV (RBC) [Entitic vol] 95.1 fL 80.0 - 100.0 fL [facility] Monocytes (Bld) [#/Vol] 0.39 10*3/uL NINF [facility] Monocytes/100 WBC (Bld) 11.3 % [facility] Neutrophils (Bld) [#/Vol] 2.15 10*3/uL [facility] Neutrophils/100 WBC (Bld) 62.1 % [facility] Nucleated RBC (Bld) [#/Vol] NINF [facility] Nucleated RBC/100 WBC (Bld) [Ratio] 0.0 % /100 WBC [facility] Platelet mean volume (Bld) [Entitic vol] 9.4 fL 9.0 - 12.7 fL [facility] Platelets (Bld) [#/Vol] 133 10*3/uL Low [facility] RBC (Bld) [#/Vol] 3.44 10*6/uL Low 4.20 - 6.0 0 m/uL [facility] WBC (Bld) [#/Vol] 3.46 10*3/uL Low [facility] Comprehensive metabolic 2000 panelon 04-26-2024 Albumin [Mass/Vol] 3.5 g/dL Low 3.9 - 4.9 g/dL [facility] ALP [Catalytic activity/Vol] 78 U/L 38 - 113 U/L [facility] ALT With P-5'-P [Catalytic activity/Vol] 10 U/L 10 - 54 U/L [facility] Anion gap [Moles/Vol] 9 mmol/L 8 - 15 mmol/L [facility] AST With P-5'-P [Catalytic activity/Vol] 15 U/L 14 - 40 U/L [facility] Bilirubin [Mass/Vol] 0.6 mg/dL 0.2 - 1 .3 mg/dL [facility] Calcium [Mass/Vol] 9.2 mg/dL 8.5 - 10. 2 mg/dL [facility] Chloride [Moles/Vol] 102 mmol/L 98 - 10 7 mmol/L [facility] CO2 [Moles/Vol] 27 mmol/L 22 - 30 mmol/L [facility] Creatinine [Mass/Vol] 0.80 mg/dL 0.73 - 1.22 mg/dL [facility] GFR/1.73 sq M.predicted among non-blacks MDRD (S/P/Bld) [Vol rate/Area] 92 mL/min/{1.73_m2} - PINF [facility] Comment on above: Estimated Glomerular Filtration Rate [...] 188 mg/dL High 74 - 99 mg/dL [facility] Comment on above: The [place] [employer] (ADA) provides guidance for [...] Standards of Medical Care in Diabetes 2016, [place] [employer]. Diabetes Care. 2016.39(Suppl 1). Interpretation and review of laboratory results Abnormal [facility] Potassium [Moles/Vol] 4.1 mmol/L 3.7 - 5.1 mmol/L [facility] Protein [Mass/Vol] 6.7 g/dL 6.3 - 8.0 g/dL [facility] Sodium [Moles/Vol] 138 mmol/L 136 - 144 mmol/L [facility] Urea nitrogen [Mass/Vol] 15 mg/dL 9 - 24 mg/dL [facility] MAGNESIUMon 04-26-2024 Magnesium [Mass/Vol] 1.7 mg/dL 1.7 - 2 .3 mg/dL [facility] Magnesium [Mass/Vol]on 04-26 Interpretation and review of laboratory results Normal [facility] No Panel Informationon 04-26 [facility] CBC W Auto Differential pane l (Bld)on 04-12-2024 Basophils (Bld) [#/Vol] [facility] Basophils/100 WBC (Bld) 0.2 % [facility] Differential cell count method Nom (Bld) Auto [facility] Eosinophils (Bld) [#/Vol] 0.16 10*3/uL [facility] Eosinophils/100 WBC (Bld) 3.1 % [facility] Erythrocyte distribution width (RBC) [Ratio] 23.8 % High 11.5 - 15.0 % [facility] Hematocrit (Bld) [Volume fraction] 29.7 % Low 39.0 - 51.0 % [facility] Hemoglobin (Bld) [Mass/Vol] 9.1 g/dL Low 13.0 - 17.0 g/dL [facility] Immature granulocytes (Bld) [#/Vol] [facility] Immature granulocytes/100 WBC (Bld) 0.2 % [facility] Interpretation and review of laboratory results Abnormal [facility] Lymphocytes (Bld) [#/Vol] 0.62 10*3/uL Low [facility] Lymphocytes/100 WBC (Bld) 12.2 % [facility] MCH (RBC) [Entitic mass] 27.9 pg 26.0 - 34.0 pg [facility] MCHC (RBC) [Mass/Vol] 30.6 g/dL 30.5 - 36.0 g/dL [facility] MCV (RBC) [Entitic vol] 91.1 fL 80.0 - 100.0 fL [facility] Monocytes (Bld) [#/Vol] 0.31 10*3/uL [facility] Monocytes/100 WBC (Bld) 6.1 % [facility] Neutrophils (Bld) [#/Vol] 3.99 10*3/uL [facility] Neutrophils/100 WBC (Bld) 78.2 % [facility] Nucleated RBC (Bld) [#/Vol] [facility] Nucleated RBC/100 WBC (Bld) [Ratio] 0.0 % /100 WBC [facility] Platelet mean volume (Bld) [Entitic vol] 8.7 fL Low 9.0 - 12.7 fL [facility] Platelets (Bld) [#/Vol] 113 10*3/uL Low [facility] RBC (Bld) [#/Vol] 3.26 10*6/uL Low 4.20 - 6.0 0 m/uL [facility] WBC (Bld) [#/Vol] 5.10 10*3/uL [facility] Comprehensive metabolic 2000 panelOrdered By: Cody Hurtado on 04-12-2024 Albumin [Mass/Vol] 3.8 g/dL Low 3.9 - 4.9 g/dL [facility] ALP [Catalytic activity/Vol] 90 U/L 38 - 113 U/L [facility] ALT [Catalytic activity/Vol] 6 U/L Low 10 - 54 U/L [facility] Anion gap [Moles/Vol] 11 mmol/L 8 - 15 mmol/L [facility] AST [Catalytic activity/Vol] 9 U/L Low 14 - 40 U/L [facility] Bilirubin [Mass/Vol] 0.5 mg/dL 0.2 - 1 .3 mg/dL [facility] Calcium [Mass/Vol] 9.3 mg/dL 8.5 - 10. 2 mg/dL [facility] Chloride [Moles/Vol] 100 mmol/L 98 - 10 7 mmol/L [facility] CO2 [Moles/Vol] 25 mmol/L 22 - 30 mmol/L [facility] Creatinine [Mass/Vol] 0.78 mg/dL 0.73 - 1.22 mg/dL [facility] GFR/1.73 sq M.predicted among non-blacks MDRD (S/P/Bld) [Vol rate/Area] 92 mL/min/{1.73_m2} - PINF [facility] Comment on above: Estimated Glomerular Filtration Rate [...] 207 mg/dL High 74 - 99 mg/dL [facility] Comment on above: The [place] [employer] (ADA) provides guidance for [...] Standards of Medical Care in Diabetes 2016, [place] [employer]. Diabetes Care. 2016.39(Suppl 1). Interpretation and review of laboratory results Abnormal [facility] Potassium [Moles/Vol] 4.1 mmol/L 3.7 - 5.1 mmol/L [facility] Protein [Mass/Vol] 6.6 g/dL 6.3 - 8.0 g/dL [facility] Sodium [Moles/Vol] 136 mmol/L 136 - 144 mmol/L [facility] Urea nitrogen [Mass/Vol] 14 mg/dL 9 - 24 mg/dL [facility] MAGNESIUMon 04-12-2024 Magnesium [Mass/Vol] 1.8 mg/dL 1.7 - 2 .3 mg/dL [facility] Magnesium [Mass/Vol]on 04-12 Interpretation and review of laboratory results Normal [facility] No Panel InformationOrdered By: Cody Hurtado on 04-12-2024 [facility] CBC W Auto Differential pane l (Bld)on 03-29-2024 Basophils (Bld) [#/Vol] 0.04 10*3/uL [facility] Basophils/100 WBC (Bld) 0.5 % [facility] Differential cell count method Nom (Bld) Auto [facility] Eosinophils (Bld) [#/Vol] 0.06 10*3/uL [facility] Eosinophils/100 WBC (Bld) 0.8 % [facility] Erythrocyte distribution width (RBC) [Ratio] 25.0 % High 11.5 - 15.0 % [facility] Hematocrit (Bld) [Volume fraction] 29.9 % Low 39.0 - 51.0 % [facility] Hemoglobin (Bld) [Mass/Vol] 9.1 g/dL Low 13.0 - 17.0 g/dL [facility] Immature granulocytes (Bld) [#/Vol] 0.09 10*3/uL [facility]F [facility] Immature granulocytes/100 WBC (Bld) 1.2 % [facility] Interpretation and review of laboratory results Abnormal [facility] Lymphocytes (Bld) [#/Vol] 1.11 10*3/uL [facility] Lymphocytes/100 WBC (Bld) 15.0 % [facility] MCH (RBC) [Entitic mass] 26.8 pg 26.0 - 34.0 pg [facility] MCHC (RBC) [Mass/Vol] 30.4 g/dL Low 30.5 - 36.0 g/dL [facility] MCV (RBC) [Entitic vol] 87.9 fL 80.0 - 100.0 fL [facility] Monocytes (Bld) [#/Vol] 0.87 10*3/uL High [facility] Monocytes/100 WBC (Bld) 11.7 % [facility] Neutrophils (Bld) [#/Vol] 5.24 10*3/uL [facility] Neutrophils/100 WBC (Bld) 70.8 % [facility] Nucleated RBC (Bld) [#/Vol] 0.03 10*3/uL High [facility] Nucleated RBC/100 WBC (Bld) [Ratio] 0.4 % /100 WBC [facility] Platelet mean volume (Bld) [Entitic vol] 9.6 fL 9.0 - 12.7 fL [facility] Platelets (Bld) [#/Vol] 292 10*3/uL [facility] RBC (Bld) [#/Vol] 3.40 10*6/uL Low 4.20 - 6.0 0 m/uL [facility] WBC (Bld) [#/Vol] 7.41 10*3/uL [facility] Comprehensive metabolic 2000 panelOrdered By: Mady Cabello on 03-29-2024 Albumin [Mass/Vol] 3.6 g/dL Low 3.9 - 4.9 g/dL [facility] ALP [Catalytic activity/Vol] 75 U/L 38 - 113 U/L [facility] ALT [Catalytic activity/Vol] 5 U/L Low 10 - 54 U/L [facility] Anion gap [Moles/Vol] 11 mmol/L 8 - 15 mmol/L [facility] AST [Catalytic activity/Vol] 8 U/L Low 14 - 40 U/L [facility] Bilirubin [Mass/Vol] 0.6 mg/dL 0.2 - 1 .3 mg/dL [facility] Calcium [Mass/Vol] 9.2 mg/dL 8.5 - 10. 2 mg/dL [facility] Chloride [Moles/Vol] 98 mmol/L 98 - 10 7 mmol/L [facility] CO2 [Moles/Vol] 24 mmol/L 22 - 30 mmol/L [facility] Creatinine [Mass/Vol] 0.86 mg/dL 0.73 - 1.22 mg/dL [facility] GFR/1.73 sq M.predicted among non-blacks MDRD (S/P/Bld) [Vol rate/Area] 90 mL/min/{1.73_m2} - PINF [facility] Comment on above: Estimated Glomerular Filtration Rate [...] 265 mg/dL High 74 - 99 mg/dL [facility] Comment on above: The [place] [employer] (ADA) provides guidance for [...] Standards of Medical Care in Diabetes 2016, [place] [employer]. Diabetes Care. 2016.39(Suppl 1). Interpretation and review of laboratory results Abnormal [facility] Potassium [Moles/Vol] 3.9 mmol/L 3.7 - 5.1 mmol/L [facility] Protein [Mass/Vol] 7.2 g/dL 6.3 - 8.0 g/dL [facility] Sodium [Moles/Vol] 133 mmol/L Low 136 - 144 mmol/L [facility] Urea nitrogen [Mass/Vol] 16 mg/dL 9 - 24 mg/dL [facility] MAGNESIUMon 03-29-2024 Magnesium [Mass/Vol] 1.7 mg/dL 1.7 - 2 .3 mg/dL [facility] Magnesium [Mass/Vol]on 03-29 Interpretation and review of laboratory results Normal [facility] No Panel InformationOrdered By: Mady Cabello on 03-29-2024 [facility] Comprehensive metabolic 2000 panelOrdered By: Mady Cabello on 03-15-2024 Albumin [Mass/Vol] 3.6 g/dL Low 3.9 - 4.9 g/dL [facility] ALP [Catalytic activity/Vol] 99 U/L 38 - 113 U/L [facility] ALT [Catalytic activity/Vol] 9 U/L Low 10 - 54 U/L [facility] Anion gap [Moles/Vol] 12 mmol/L 8 - 15 mmol/L [facility] AST [Catalytic activity/Vol] 14 U/L 14 - 40 U/L [facility] Bilirubin [Mass/Vol] 0.6 mg/dL 0.2 - 1 .3 mg/dL [facility] Calcium [Mass/Vol] 8.8 mg/dL 8.5 - 10. 2 mg/dL [facility] Chloride [Moles/Vol] 98 mmol/L 98 - 10 7 mmol/L [facility] CO2 [Moles/Vol] 25 mmol/L 22 - 30 mmol/L [facility] Creatinine [Mass/Vol] 0.81 mg/dL 0.73 - 1.22 mg/dL [facility] GFR/1.73 sq M.predicted among non-blacks MDRD (S/P/Bld) [Vol rate/Area] 91 mL/min/{1.73_m2} - PINF [facility] Comment on above: Estimated Glomerular Filtration Rate [...] 248 mg/dL High 74 - 99 mg/dL [facility] Comment on above: The [place] [employer] (ADA) provides guidance for [...] Standards of Medical Care in Diabetes 2016, [place] [employer]. Diabetes Care. 2016.39(Suppl 1). Potassium [Moles/Vol] 3.6 mmol/L Low 3.7 - 5.1 mmol/L [facility] Protein [Mass/Vol] 6.4 g/dL 6.3 - 8.0 g/dL [facility] Sodium [Moles/Vol] 135 mmol/L Low 136 - 144 mmol/L [facility] Urea nitrogen [Mass/Vol] 15 mg/dL 9 - 24 mg/dL [facility] MAGNESIUMon 03-15-2024 Magnesium [Mass/Vol] 1.3 mg/dL Low 1.7 - 2 .3 mg/dL [facility] No Panel InformationOrdered By: Mady Cabello on 03-15-2024 Interpretation and review of laboratory results Abnormal [facility] CBC W Auto Differential pane l (Bld)on 03-01-2024 Basophils (Bld) [#/Vol] NINF [facility] Basophils/100 WBC (Bld) 0.0 % [facility] Differential cell count method Nom (Bld) Auto [facility] Eosinophils (Bld) [#/Vol] 0.07 10*3/uL [facility]F [facility] Eosinophils/100 WBC (Bld) 2.5 % [facility] Erythrocyte distribution width (RBC) [Ratio] 23.1 % High 11.5 - 15.0 % [facility] Hematocrit (Bld) [Volume fraction] 32.4 % Low 39.0 - 51.0 % [facility] Hemoglobin (Bld) [Mass/Vol] 10.1 g/dL Low 13.0 - 17.0 g/dL [facility] Immature granulocytes (Bld) [#/Vol] NINF [facility] Immature granulocytes/100 WBC (Bld) 0.4 % [facility] Interpretation and review of laboratory results Abnormal [facility] Lymphocytes (Bld) [#/Vol] 0.43 10*3/uL Low [facility] Lymphocytes/100 WBC (Bld) 15.1 % [facility] MCH (RBC) [Entitic mass] 25.9 pg Low 26.0 - 34.0 pg [facility] MCHC (RBC) [Mass/Vol] 31.2 g/dL 30.5 - 36.0 g/dL [facility] MCV (RBC) [Entitic vol] 83.1 fL 80.0 - 100.0 fL [facility] Monocytes (Bld) [#/Vol] 0.21 10*3/uL [facility] Monocytes/100 WBC (Bld) 7.4 % [facility] Neutrophils (Bld) [#/Vol] 2.12 10*3/uL [facility] Neutrophils/100 WBC (Bld) 74.6 % [facility] Nucleated RBC (Bld) [#/Vol] [facility]F [facility] Nucleated RBC/100 WBC (Bld) [Ratio] 0.0 % /100 WBC [facility] Platelet mean volume (Bld) [Entitic vol] 8.6 fL Low 9.0 - 12.7 fL [facility] Platelets (Bld) [#/Vol] 112 10*3/uL Low [facility] RBC (Bld) [#/Vol] 3.90 10*6/uL Low 4.20 - 6.0 0 m/uL [facility] WBC (Bld) [#/Vol] 2.84 10*3/uL Low [facility] Comprehensive metabolic 2000 panelOrdered By: Mady Cabello on 03-01-2024 Albumin [Mass/Vol] 3.6 g/dL Low 3.9 - 4.9 g/dL [facility] ALP [Catalytic activity/Vol] 98 U/L 38 - 113 U/L [facility] ALT [Catalytic activity/Vol] 9 U/L Low 10 - 54 U/L [facility] Anion gap [Moles/Vol] 14 mmol/L 8 - 15 mmol/L [facility] AST [Catalytic activity/Vol] 14 U/L 14 - 40 U/L [facility] Bilirubin [Mass/Vol] 0.6 mg/dL 0.2 - 1 .3 mg/dL [facility] Calcium [Mass/Vol] 9.2 mg/dL 8.5 - 10. 2 mg/dL [facility] Chloride [Moles/Vol] 99 mmol/L 98 - 10 7 mmol/L [facility] CO2 [Moles/Vol] 24 mmol/L 22 - 30 mmol/L [facility] Creatinine [Mass/Vol] 0.82 mg/dL 0.73 - 1.22 mg/dL [facility] GFR/1.73 sq M.predicted among non-blacks MDRD (S/P/Bld) [Vol rate/Area] 91 mL/min/{1.73_m2} - PINF [facility] Comment on above: Estimated Glomerular Filtration Rate [...] 316 mg/dL High 74 - 99 mg/dL [facility] Comment on above: The [employer] (ADA) provides guidance for [...] Standards of Medical Care in Diabetes 2016, [employer]. Diabetes Care. 2016.39(Suppl 1). Potassium [Moles/Vol] 3.7 mmol/L 3.7 - 5.1 mmol/L [facility] Protein [Mass/Vol] 6.5 g/dL 6.3 - 8.0 g/dL [facility] Sodium [Moles/Vol] 137 mmol/L 136 - 144 mmol/L [facility] Urea nitrogen [Mass/Vol] 14 mg/dL 9 - 24 mg/dL [facility] MAGNESIUMon 03-01-2024 Magnesium [Mass/Vol] 1.5 mg/dL Low 1.7 - 2 .3 mg/dL [facility] No Panel InformationOrdered By: Mady Cabello on 03-01-2024 Interpretation and review of laboratory results Abnormal [facility] CBC W Auto Differential pane l (Bld)on 02-16-2024 Basophils (Bld) [#/Vol] 0.04 10*3/uL [facility] Basophils/100 WBC (Bld) 0.7 % [facility] Differential cell count method Nom (Bld) Auto [facility] Eosinophils (Bld) [#/Vol] 0.10 10*3/uL [facility] Eosinophils/100 WBC (Bld) 1.8 % [facility] Erythrocyte distribution width (RBC) [Ratio] 21.6 % High 11.5 - 15.0 % [facility] Hematocrit (Bld) [Volume fraction] 33.6 % Low 39.0 - 51.0 % [facility] Hemoglobin (Bld) [Mass/Vol] 10.4 g/dL Low 13.0 - 17.0 g/dL [facility] Immature granulocytes (Bld) [#/Vol] 0.05 10*3/uL [facility] Immature granulocytes/100 WBC (Bld) 0.9 % [facility] Interpretation and review of laboratory results Abnormal [facility] Lymphocytes (Bld) [#/Vol] 0.64 10*3/uL Low [facility] Lymphocytes/100 WBC (Bld) 11.4 % [facility] MCH (RBC) [Entitic mass] 25.4 pg Low 26.0 - 34.0 pg [facility] MCHC (RBC) [Mass/Vol] 31.0 g/dL 30.5 - 36.0 g/dL [facility] MCV (RBC) [Entitic vol] 82.2 fL 80.0 - 100.0 fL [facility] Monocytes (Bld) [#/Vol] 0.54 10*3/uL [facility]F [facility] Monocytes/100 WBC (Bld) 9.6 % [facility] Neutrophils (Bld) [#/Vol] 4.23 10*3/uL [facility] Neutrophils/100 WBC (Bld) 75.6 % [facility] Nucleated RBC (Bld) [#/Vol] NINF [facility] Nucleated RBC/100 WBC (Bld) [Ratio] 0.0 % /100 WBC [facility] Platelet mean volume (Bld) [Entitic vol] 8.3 fL Low 9.0 - 12.7 fL [facility] Platelets (Bld) [#/Vol] 252 10*3/uL [facility] RBC (Bld) [#/Vol] 4.09 10*6/uL Low 4.20 - 6.0 0 m/uL [facility] WBC (Bld) [#/Vol] 5.60 10*3/uL [facility] Comprehensive metabolic 2000 panelOrdered By: Mady Cabello on 02-16-2024 Albumin [Mass/Vol] 3.6 g/dL Low 3.9 - 4.9 g/dL [facility] ALP [Catalytic activity/Vol] 84 U/L 38 - 113 U/L [facility] ALT [Catalytic activity/Vol] 11 U/L 10 - 54 U/L [facility] Anion gap [Moles/Vol] 12 mmol/L 8 - 15 mmol/L [facility] AST [Catalytic activity/Vol] 14 U/L 14 - 40 U/L [facility] Bilirubin [Mass/Vol] 0.6 mg/dL 0.2 - 1 .3 mg/dL [facility] Calcium [Mass/Vol] 9.0 mg/dL 8.5 - 10. 2 mg/dL [facility] Chloride [Moles/Vol] 98 mmol/L 98 - 10 7 mmol/L [facility] CO2 [Moles/Vol] 25 mmol/L 22 - 30 mmol/L [facility] Creatinine [Mass/Vol] 0.86 mg/dL 0.73 - 1.22 mg/dL [facility] GFR/1.73 sq M.predicted among non-blacks MDRD (S/P/Bld) [Vol rate/Area] 90 mL/min/{1.73_m2[facility] Comment on above: Estimated Glomerular Filtration Rate [...] 320 mg/dL High 74 - 99 mg/dL [facility] Comment on above: The [place] [employer] (ADA) provides guidance for [...] Standards of Medical Care in Diabetes 2016, [employer]. Diabetes Care. 2016.39(Suppl 1). Potassium [Moles/Vol] 3.6 mmol/L Low 3.7 - 5.1 mmol/L [facility] Protein [Mass/Vol] 7.0 g/dL 6.3 - 8.0 g/dL [facility] Sodium [Moles/Vol] 135 mmol/L Low 136 - 144 mmol/L [facility] Urea nitrogen [Mass/Vol] 16 mg/dL 9 - 24 mg/dL [facility] MAGNESIUMon 02-16-2024 Magnesium [Mass/Vol] 1.3 mg/dL Low 1.7 - 2 .3 mg/dL [facility] No Panel InformationOrdered By: Mady Cabello on 02-16-2024 Interpretation and review of laboratory results Abnormal [facility] CBC W Auto Differential pane l (Bld)on 02-02-2024 Anisocytosis Ql (Bld) Present [facility] Basophils (Bld) [#/Vol] 0.08 10*3/uL NINF [facility] Basophils/100 WBC (Bld) 3.0 % [facility] Differential cell count method Nom (Bld) Manual [facility] Eosinophils (Bld) [#/Vol] 0.03 10*3/uL [facility]F [facility] Eosinophils/100 WBC (Bld) 1.0 % [facility] Erythrocyte distribution width (RBC) [Ratio] 19.5 % High 11.5 - 15.0 % [facility] Hematocrit (Bld) [Volume fraction] 39.4 % 39.0 - 51.0 % [facility] Hemoglobin (Bld) [Mass/Vol] 12.4 g/dL Low 13.0 - 17.0 g/dL [facility] Interpretation and review of laboratory results Abnormal [facility] Lymphocytes (Bld) [#/Vol] 0.81 10*3/uL Low [facility] Lymphocytes/100 WBC (Bld) 29.0 % [facility] MCH (RBC) [Entitic mass] 25.1 pg Low 26.0 - 34.0 pg [facility] MCHC (RBC) [Mass/Vol] 31.5 g/dL 30.5 - 36.0 g/dL [facility] MCV (RBC) [Entitic vol] 79.8 fL Low 80.0 - 100.0 fL [facility] Monocytes (Bld) [#/Vol] 0.73 10*3/uL [facility]F [facility] Monocytes/100 WBC (Bld) 26.0 % [facility] Neutrophils (Bld) [#/Vol] 1.14 10*3/uL Low [facility] Neutrophils/100 WBC (Bld) 41.0 % [facility] Nucleated RBC (Bld) [#/Vol] [facility]F [facility] Nucleated RBC/100 WBC (Bld) [Ratio] 0.0 % /100 WBC [facility] Platelet mean volume (Bld) [Entitic vol] 8.6 fL Low 9.0 - 12.7 fL [facility] Platelets (Bld) [#/Vol] 191 10*3/uL [facility] Comment on above: No clot detected. Platelets Estimate (Bld) [#/Vol] Adequate [facility] RBC (Bld) [#/Vol] 4.94 10*6/uL 4.20 - 6.0 0 m/uL [facility] Red Cell Morph Reviewed: see result s of individual morphologies [facility] Toxic granules LM Ql (Bld) Present [facility] WBC (Bld) [#/Vol] 2.79 10*3/uL [facility] This is an appended report. These results have been appended to a previously verified report. [facility] Comprehensive metabolic 2000 panelOrdered By: Cody Hurtado on 02-02-2024 Albumin [Mass/Vol] 3.4 g/dL Low 3.9 - 4.9 g/dL [facility] ALP [Catalytic activity/Vol] 88 U/L 38 - 113 U/L [facility] ALT [Catalytic activity/Vol] 6 U/L Low 10 - 54 U/L [facility] Anion gap [Moles/Vol] 10 mmol/L 8 - 15 mmol/L [facility] AST [Catalytic activity/Vol] 8 U/L Low 14 - 40 U/L [facility] Bilirubin [Mass/Vol] 1.0 mg/dL 0.2 - 1 .3 mg/dL [facility] Calcium [Mass/Vol] 8.8 mg/dL 8.5 - 10. 2 mg/dL [facility] Chloride [Moles/Vol] 96 mmol/L Low 98 - 10 7 mmol/L [facility] CO2 [Moles/Vol] 25 mmol/L 22 - 30 mmol/L [facility] Creatinine [Mass/Vol] 0.97 mg/dL 0.73 - 1.22 mg/dL [facility] GFR/1.73 sq M.predicted among non-blacks MDRD (S/P/Bld) [Vol rate/Area] 81 mL/min/{1.73_m2} - PINF [facility] Comment on above: Estimated Glomerular Filtration Rate [...] 196 mg/dL High 74 - 99 mg/dL [facility] Comment on above: The [employer] (ADA) provides guidance for [...] Standards of Medical Care in Diabetes 2016, [employer]. Diabetes Care. 2016.39(Suppl 1). Interpretation and review of laboratory results Abnormal [facility] Potassium [Moles/Vol] 3.7 mmol/L 3.7 - 5.1 mmol/L [facility] Protein [Mass/Vol] 6.5 g/dL 6.3 - 8.0 g/dL [facility] Sodium [Moles/Vol] 131 mmol/L Low 136 - 144 mmol/L [facility] Urea nitrogen [Mass/Vol] 24 mg/dL 9 - 24 mg/dL [facility] MAGNESIUMon 02-02-2024 Magnesium [Mass/Vol] 2.1 mg/dL 1.7 - 2 .3 mg/dL [facility] Magnesium [Mass/Vol]on 02-01 Interpretation and review of laboratory results Normal [facility] No Panel InformationOrdered By: Cody Hurtado on 02-02-2024 [facility] CBC W Auto Differential pane l (Bld)on 01-19-2024 Basophils (Bld) [#/Vol] [facility] Basophils/100 WBC (Bld) 0.5 % [facility] Differential cell count method Nom (Bld) Auto [facility] Eosinophils (Bld) [#/Vol] 0.16 10*3/uL [facility] Eosinophils/100 WBC (Bld) 4.4 % [facility] Erythrocyte distribution width (RBC) [Ratio] 19.0 % High 11.5 - 15.0 % [facility] Hematocrit (Bld) [Volume fraction] 36.3 % Low 39.0 - 51.0 % [facility] Hemoglobin (Bld) [Mass/Vol] 11.0 g/dL Low 13.0 - 17.0 g/dL [facility] Immature granulocytes (Bld) [#/Vol] [facility] Immature granulocytes/100 WBC (Bld) 0.3 % [facility] Interpretation and review of laboratory results Abnormal [facility] Lymphocytes (Bld) [#/Vol] 0.73 10*3/uL Low [facility] Lymphocytes/100 WBC (Bld) 19.9 % [facility] MCH (RBC) [Entitic mass] 24.8 pg Low 26.0 - 34.0 pg [facility] MCHC (RBC) [Mass/Vol] 30.3 g/dL Low 30.5 - 36.0 g/dL [facility] MCV (RBC) [Entitic vol] 81.9 fL 80.0 - 100.0 fL [facility] Monocytes (Bld) [#/Vol] 0.41 10*3/uL NINF [facility] Monocytes/100 WBC (Bld) 11.2 % [facility] Neutrophils (Bld) [#/Vol] 2.33 10*3/uL [facility] Neutrophils/100 WBC (Bld) 63.7 % [facility] Nucleated RBC (Bld) [#/Vol] NINF [facility] Nucleated RBC/100 WBC (Bld) [Ratio] 0.0 % /100 WBC [facility] Platelet mean volume (Bld) [Entitic vol] 8.3 fL Low 9.0 - 12.7 fL [facility] Platelets (Bld) [#/Vol] 178 10*3/uL [facility] RBC (Bld) [#/Vol] 4.43 10*6/uL 4.20 - 6.0 0 m/uL [facility] WBC (Bld) [#/Vol] 3.66 10*3/uL Low [facility] Comprehensive metabolic 2000 panelOrdered By: Cody Hurtado on 01-19-2024 Albumin [Mass/Vol] 3.8 g/dL Low 3.9 - 4.9 g/dL [facility] ALP [Catalytic activity/Vol] 99 U/L 38 - 113 U/L [facility] ALT [Catalytic activity/Vol] 7 U/L Low 10 - 54 U/L [facility] Anion gap [Moles/Vol] 9 mmol/L 8 - 15 mmol/L [facility] AST [Catalytic activity/Vol] 11 U/L Low 14 - 40 U/L [facility] Bilirubin [Mass/Vol] 0.3 mg/dL 0.2 - 1 .3 mg/dL [facility] Calcium [Mass/Vol] 8.7 mg/dL 8.5 - 10. 2 mg/dL [facility] Chloride [Moles/Vol] 100 mmol/L 98 - 10 7 mmol/L [facility] CO2 [Moles/Vol] 29 mmol/L 22 - 30 mmol/L [facility] Creatinine [Mass/Vol] 0.83 mg/dL 0.73 - 1.22 mg/dL [facility] GFR/1.73 sq M.predicted among non-blacks MDRD (S/P/Bld) [Vol rate/Area] 91 mL/min/{1.73_m2} - PINF [facility] Comment on above: Estimated Glomerular Filtration Rate [...] 175 mg/dL High 74 - 99 mg/dL [facility] Comment on above: The [employer] (ADA) provides guidance for [...] Standards of Medical Care in Diabetes 2016, [employer]. Diabetes Care. 2016.39(Suppl 1). Potassium [Moles/Vol] 3.6 mmol/L Low 3.7 - 5.1 mmol/L [facility] Protein [Mass/Vol] 6.6 g/dL 6.3 - 8.0 g/dL [facility] Sodium [Moles/Vol] 138 mmol/L 136 - 144 mmol/L [facility] Urea nitrogen [Mass/Vol] 19 mg/dL 9 - 24 mg/dL [facility] MAGNESIUMon 01-19-2024 Magnesium [Mass/Vol] 1.6 mg/dL Low 1.7 - 2 .3 mg/dL [facility] No Panel InformationOrdered By: Cody Hurtado on 01-19-2024 Interpretation and review of laboratory results Abnormal [facility] CBC W Auto Differential pane l (Bld)on 01-06-2024 Basophils (Bld) [#/Vol] 0.07 10*3/uL [facility] Basophils/100 WBC (Bld) 1.0 % [facility] Differential cell count method Nom (Bld) Auto [facility] Eosinophils (Bld) [#/Vol] 0.37 10*3/uL [facility] Eosinophils/100 WBC (Bld) 5.0 % [facility] Erythrocyte distribution width (RBC) [Ratio] 19.8 % High 11.5 - 15.0 % [facility] Hematocrit (Bld) [Volume fraction] 38.1 % Low 39.0 - 51.0 % [facility] Hemoglobin (Bld) [Mass/Vol] 11.3 g/dL Low 13.0 - 17.0 g/dL [facility] Immature granulocytes (Bld) [#/Vol] 0.03 10*3/uL [facility] Immature granulocytes/100 WBC (Bld) 0.4 % [facility] Interpretation and review of laboratory results Abnormal [facility] Lymphocytes (Bld) [#/Vol] 0.88 10*3/uL Low [facility] Lymphocytes/100 WBC (Bld) 12.0 % [facility] MCH (RBC) [Entitic mass] 24.4 pg Low 26.0 - 34.0 pg [facility] MCHC (RBC) [Mass/Vol] 29.7 g/dL Low 30.5 - 36.0 g/dL [facility] MCV (RBC) [Entitic vol] 82.3 fL 80.0 - 100.0 fL [facility] Monocytes (Bld) [#/Vol] 0.54 10*3/uL [facility] Monocytes/100 WBC (Bld) 7.4 % [facility] Neutrophils (Bld) [#/Vol] 5.45 10*3/uL [facility] Neutrophils/100 WBC (Bld) 74.2 % [facility] Nucleated RBC (Bld) [#/Vol] [facility]F [facility] Nucleated RBC/100 WBC (Bld) [Ratio] 0.0 % /100 WBC [facility] Platelet mean volume (Bld) [Entitic vol] 8.2 fL Low 9.0 - 12.7 fL [facility] Platelets (Bld) [#/Vol] 392 10*3/uL [facility] RBC (Bld) [#/Vol] 4.63 10*6/uL 4.20 - 6.0 0 m/uL [facility] WBC (Bld) [#/Vol] 7.34 10*3/uL [facility] Comprehensive metabolic 2000 panelOrdered By: Cody Hurtado on 01-06-2024 Albumin [Mass/Vol] 3.9 g/dL 3.9 - 4.9 g/dL [facility] ALP [Catalytic activity/Vol] 89 U/L 38 - 113 U/L [facility] ALT [Catalytic activity/Vol] 5 U/L Low 10 - 54 U/L [facility] Anion gap [Moles/Vol] 9 mmol/L 8 - 15 mmol/L [facility] AST [Catalytic activity/Vol] 9 U/L Low 14 - 40 U/L [facility] Bilirubin [Mass/Vol] 0.4 mg/dL 0.2 - 1 .3 mg/dL [facility] Calcium [Mass/Vol] 9.2 mg/dL 8.5 - 10. 2 mg/dL [facility] Chloride [Moles/Vol] 98 mmol/L 98 - 10 7 mmol/L [facility] CO2 [Moles/Vol] 29 mmol/L 22 - 30 mmol/L [facility] Creatinine [Mass/Vol] 0.88 mg/dL 0.73 - 1.22 mg/dL [facility] GFR/1.73 sq M.predicted among non-blacks MDRD (S/P/Bld) [Vol rate/Area] 89 mL/min/{1.73_m2} - PINF [facility] Comment on above: Estimated Glomerular Filtration Rate [...] 224 mg/dL High 74 - 99 mg/dL [facility] Comment on above: The [employer] (ADA) provides guidance for [...] Standards of Medical Care in Diabetes 2016, [employer]. Diabetes Care. 2016.39(Suppl 1). Interpretation and review of laboratory results Abnormal [facility] Potassium [Moles/Vol] 3.9 mmol/L 3.7 - 5.1 mmol/L [facility] Protein [Mass/Vol] 7.6 g/dL 6.3 - 8.0 g/dL [facility] Sodium [Moles/Vol] 136 mmol/L 136 - 144 mmol/L [facility] Urea nitrogen [Mass/Vol] 15 mg/dL 9 - 24 mg/dL [facility] Albumin/Creatinineon 024 Albumin/Creatinine DL <= 20 mg/L (U) [Mass ratio] 15.6 ug/mg Creat Normal <30.0 [facility] Comment on above: Performed By: #### 2 4323-8 #### AKIL CASTLE ([id number]) [facility] ([facility]) [address] [place] [address] Albumin/Creatinine DL <= 20 mg/L (U) [Mass ratio]on 12-29-2023 Albumin DL <= 20 mg/L (U) [Mass/Vol] 19.1 mg/L Normal Not established [facility] Comment on above: Performed By: #### 2 4323-8 #### AKIL CASTLE ([id number]) [facility] ([facility]) [address] [place] [address] Creatinine (U) [Mass/Vol] 122.8 mg/dL Normal 20.0-370.0 [facility] Comment on above: Performed By: #### 2 4323-8 #### AKIL CASTLE ([id number]) [facility] ([facility]) [address] [place] [address] Comprehensive metabolic 2000 panelon 12-25-2023 Albumin BCP dye [Mass/Vol] 3.8 g/dL Normal 3.4-5.0 [facility] Comment on above: Performed By: #### 2 4323-8 #### AKIL CASTLE ([id number]) [facility] ([facility]) [address] [place] [address] ALP [Catalytic activity/Vol] 79 U/L Normal 33-136 [facility] Comment on above: Performed By: #### 2 4323-8 #### AKIL CASTLE ([id number]) [facility] ([facility]) [address] [place] [address] ALT With P-5'-P [Catalytic activity/Vol] 8 U/L Low 10-52 [facility] Comment on above: Result Comment: Camelia ents treated with Sulfasalazine may generate falsely decreased results for ALT. Performed By: #### 2 4323-8 #### AKIL CASTLE ([id number]) [facility] ([facility]) [address] [place] [address] Anion gap [Moles/Vol] 12 mmol/L Normal 10-20 [facility] Comment on above: Performed By: #### 2 4323-8 #### AKIL CASTLE ([id number]) [facility] ([facility]) [address] [place] [address] AST With P-5'-P [Catalytic activity/Vol] 12 U/L Normal 9-39 [facility] Comment on above: Performed By: #### 2 4323-8 #### AKIL CASTLE ([id number]) [facility] ([facility]) [address] [place] [address] Bilirubin [Mass/Vol] 0.5 mg/dL Normal 0.0-1.2 [facility] Comment on above: Performed By: #### 2 4323-8 #### AKIL CASTLE ([id number]) [facility] ([facility]) [address] [place] [address] Calcium [Mass/Vol] 9.0 mg/dL Normal 8.6-10.3 [facility] Comment on above: Performed By: #### 2 4323-8 #### AKIL CASTLE ([id number]) [facility] ([facility]) [facility] [place] [address] Chloride [Moles/Vol] 101 mmol/L Normal 98-107 [facility] Comment on above: Performed By: #### 2 4323-8 #### AKIL CASTLE ([id number]) [facility] ([facility]) [address] [place] [address] CO2 [Moles/Vol] 30 mmol/L Normal 21-32 [facility] Comment on above: Performed By: #### 2 4323-8 #### AKIL CASTLE ([id number]) [facility] ([facility]) [address] [place] [address] Creatinine [Mass/Vol] 0.97 mg/dL Normal 0.50-1.30 [facility] Comment on above: Performed By: #### 2 4323-8 #### AKIL CASTLE ([id number]) [facility] ([facility]) [address] [place] [address] Glomerular filtration rate/1.73 sq M.predicted 81 mL/min/1.73m*2 Normal >60 [facility] Comment on above: Result Comment: Calc ulations of estimated GFR are performed using the 2020 CKD-EPI Study Refit equation without the race variable for the IDMS-Traceable creatinine methods. https://jasn.asnjournals.org/content/early//ASN.093809 4588 Performed By: #### 2 4323-8 #### AKIL CASTLE ([id number]) [facility] ([facility]) [address] [place] [address] Glucose [Mass/Vol] 133 mg/dL High 74-99 [facility] Comment on above: Performed By: #### 2 4323-8 #### AKIL CASTLE ([id number]) [facility] ([facility]) [address] [place] [address] Potassium [Moles/Vol] 4.2 mmol/L Normal 3.5-5.3 [facility] Comment on above: Performed By: #### 2 4323-8 #### AKIL CASTLE ([id number]) [facility] ([facility]) [address] [place] [address] Protein [Mass/Vol] 6.8 g/dL Normal 6.4-8.2 [facility] Comment on above: Performed By: #### 2 4323-8 #### AKIL CASTLE ([id number]) [facility] ([facility]) [address] [place] [address] Sodium [Moles/Vol] 139 mmol/L Normal 136-145 [facility] Comment on above: Performed By: #### 2 4323-8 #### AKIL CASTLE ([id number]) [facility] ([facility]) [address] [place] [address] Urea nitrogen [Mass/Vol] 13 mg/dL Normal 6-23 [facility] Comment on above: Performed By: #### 2 4323-8 #### AKIL CASTLE ([id number]) [facility] ([facility]) [address] [place] [address]2942 HbA1c (Bld) [Mass fraction]o n 12-25-2023 Average glucose Estimated from glycated hemoglobin (Bld) [Mass/Vol] 137 mg/dL Normal Not Established [facility] Comment on above: Order Comment: Diagn osis of Diabetes-Adults Non-Diabetic: < or = 5.6% Increased risk for developing diabetes: 5.7-6.4% Diagnostic of diabetes: > or = 6.5% Performed By: #### 4 548-4 #### AKIL CASTLE ([id number]) [facility] ([facility]) [address] [place] [address] Hemoglobin A1c/Hemoglobin.to jenny 12-25-2023 HbA1c (Bld) [Mass fraction] 6.4 % High see below [facility] Comment on above: Order Comment: Diagn osis of Diabetes-Adults Non-Diabetic: < or = 5.6% Increased risk for developing diabetes: 5.7-6.4% Diagnostic of diabetes: > or = 6.5% Performed By: #### 4 548-4 #### AKIL CASTLE ([id number]) [facility] ([facility]) [facility] [place] [address] Lipid 1996 panelon 4 Cholesterol [Mass/Vol] 117 mg/dL Normal 0-199 [facility] Comment on above: Result Comment: Age [...] By: #### 2 4323-8 #### AKIL CASTLE ([id number]) [facility] ([facility]) [address] [place] [address] Cholesterol in HDL [Mass/Vol] 32.0 mg/dL Normal [facility] Comment on above: Result Comment: Age Very Low Low Normal High 0-19 Y < 35 < 40 40-45 ---- 20-24 Y ---- < 40 >45 ---- >24 Y ---- < 40 40-60 >60 Performed By: #### 2 4323-8 #### AKIL CASTLE ([id number]) [facility] ([facility]) [facility] [place] [address] Cholesterol in LDL [Mass/Vol] 64 mg/dL Normal <=99 [facility] Comment on above: Result Comment: Near Borderline AGE Desirable Optimal High High Very High 0-19 Y 0 - 109 --- 110-129 >/= 130 ---- 20-24 Y 0 - 119 --- 120-159 >/= 160 ---- >24 Y 0 - 99 100-129 130-159 160-189 >/=190 Performed By: #### 2 4323-8 #### AKIL CASTLE ([id number]) [facility] ([facility]) [facility] [place] [address] Cholesterol in VLDL [Mass/Vol] 21 mg/dL Normal 0-40 [facility] Comment on above: Performed By: #### 2 4323-8 #### AKIL CASTLE ([id number]) [facility] ([facility]) [address] [place] [address] 627[address] CHOLESTEROL/HDL RATIO 3.7 Normal [facility] Comment on above: Result Comment: Ref Values Desirable < 3.4 High Risk > 5.0 Performed By: #### 2 4323-8 #### AKIL CASTLE ([id number]) [facility] ([facility]) [address] [place] [address] 70252 NON HDL CHOLESTEROL 85 mg/dL Normal 0-149 [facility] Comment on above: Result Comment: Age Desirable Borderline High High Very High 0-19 Y 0 - 119 120 - 144 >/= 145 >/= 160 20-24 Y 0 - 149 150 - 189 >/= 190 ---- >24 Y 30 mg/dL above LDL Cholesterol goal Performed By: #### 2 4323-8 #### AKIL CASTLE ([id number]) [facility] ([facility]) [address] [place] [address]371 Triglyceride [Mass/Vol] 105 mg/dL Normal 0-149 [facility] Comment on above: Result Comment: Age [...] By: #### 2 4323-8 #### AKIL CASTLE ([id number]) [facility] ([facility]) [address] [place] [address] Thyrotropinon 12-25-2023 TSH Qn 1.90 m[IU]/L Normal 0.44-3.98 [facility] Comment on above: Order Comment: TSH t esting is performed using different testing methodology at [facility] than at other [facility]. Direct result comparisons should only be made within the same method. Performed By: #### 2 4323-8 #### AKIL CASTLE ([id number]) [facility] ([facility]) [address] [place] [address] CBC W Auto Differential pane l (Bld)on 12-15-2023 Basophils (Bld) [#/Vol] 0.04 10*3/uL [facility] Basophils/100 WBC (Bld) 0.5 % [facility] Differential cell count method Nom (Bld) Auto [facility] Eosinophils (Bld) [#/Vol] 0.34 10*3/uL [facility]F [facility] Eosinophils/100 WBC (Bld) 4.2 % [facility] Erythrocyte distribution width (RBC) [Ratio] 20.9 % High 11.5 - 15.0 % [facility] Hematocrit (Bld) [Volume fraction] 33.6 % Low 39.0 - 51.0 % [facility] Hemoglobin (Bld) [Mass/Vol] 9.9 g/dL Low 13.0 - 17.0 g/dL [facility] Immature granulocytes (Bld) [#/Vol] [facility]F [facility] Immature granulocytes/100 WBC (Bld) 0.2 % [facility] Interpretation and review of laboratory results Abnormal [facility] Lymphocytes (Bld) [#/Vol] 0.90 10*3/uL Low [facility] Lymphocytes/100 WBC (Bld) 11.1 % [facility] MCH (RBC) [Entitic mass] 23.6 pg Low 26.0 - 34.0 pg [facility] MCHC (RBC) [Mass/Vol] 29.5 g/dL Low 30.5 - 36.0 g/dL [facility] MCV (RBC) [Entitic vol] 80.2 fL 80.0 - 100.0 fL [facility] Monocytes (Bld) [#/Vol] 0.49 10*3/uL NINF [facility] Monocytes/100 WBC (Bld) 6.0 % [facility] Neutrophils (Bld) [#/Vol] 6.32 10*3/uL [facility] Neutrophils/100 WBC (Bld) 78.0 % [facility] Nucleated RBC (Bld) [#/Vol] NINF [facility] Nucleated RBC/100 WBC (Bld) [Ratio] 0.0 % /100 WBC [facility] Platelet mean volume (Bld) [Entitic vol] 8.2 fL Low 9.0 - 12.7 fL [facility] Platelets (Bld) [#/Vol] 401 10*3/uL High [facility] RBC (Bld) [#/Vol] 4.19 10*6/uL Low 4.20 - 6.0 0 m/uL [facility] WBC (Bld) [#/Vol] 8.11 10*3/uL [facility] Comprehensive metabolic 2000 panelOrdered By: Mady Cabello on 12-15-2023 Albumin [Mass/Vol] 3.7 g/dL Low 3.9 - 4.9 g/dL [facility] ALP [Catalytic activity/Vol] 91 U/L 38 - 113 U/L [facility] ALT [Catalytic activity/Vol] 5 U/L Low 10 - 54 U/L [facility] Anion gap [Moles/Vol] 12 mmol/L 8 - 15 mmol/L [facility] AST [Catalytic activity/Vol] 11 U/L Low 14 - 40 U/L [facility] Bilirubin [Mass/Vol] 0.4 mg/dL 0.2 - 1 .3 mg/dL [facility] Calcium [Mass/Vol] 9.3 mg/dL 8.5 - 10. 2 mg/dL [facility] Chloride [Moles/Vol] 99 mmol/L 98 - 10 7 mmol/L [facility] CO2 [Moles/Vol] 25 mmol/L 22 - 30 mmol/L [facility] Creatinine [Mass/Vol] 0.91 mg/dL 0.73 - 1.22 mg/dL [facility] GFR/1.73 sq M.predicted among non-blacks MDRD (S/P/Bld) [Vol rate/Area] 87 mL/min/{1.73_m2} - PINF [facility] Comment on above: Estimated Glomerular Filtration Rate [...] 157 mg/dL High 74 - 99 mg/dL [facility] Comment on above: The [place] Diabete s Association (ADA) provides guidance for [...] Standards of Medical Care in Diabetes 2016, [place] [employer]. Diabetes Care. 2016.39(Suppl 1). Interpretation and review of laboratory results Abnormal [facility] Potassium [Moles/Vol] 3.9 mmol/L 3.7 - 5.1 mmol/L [facility] Protein [Mass/Vol] 7.6 g/dL 6.3 - 8.0 g/dL [facility] Sodium [Moles/Vol] 136 mmol/L 136 - 144 mmol/L [facility] Urea nitrogen [Mass/Vol] 18 mg/dL 9 - 24 mg/dL [facility] HBV core Ab Ql (S)on Interpretation and review of laboratory results Normal [facility] HBV surface Ab Ql (S)Ordered By: Deep Srinivasan on 12-15-2023 HBV surface Ab Qn (S) mIU/mL [facility] Comment on above: <8 mIU/mL: No serolo gical evidence of immunity to Hepatitis B Virus. >/= 8 to <12 mIU/mL: No serological evidence of immunity to Hepatitis B Virus. >/= 12 mIU/mL: Consistent with serological evidence of immunity to Hepatitis B Virus. [facility] HBV surface Ag Ql (S)on 11-27 Interpretation and review of laboratory results Normal [facility] HCV Ab Ql (S)on 12-15-2023 Interpretation and review of laboratory results Normal [facility] HEPATITIS B CORE ANTIBODY TO Jenny 12-15-2023 HBV core Ab Ql (S) Negative Negative [facility] Comment on above: No evidence of curre nt or past infection with Hepatitis B virus. Should recent infection be suspected, repeat testing may be considered 3-4 weeks after this draw. HEPATITIS B SURFACE ANTIBODY Ordered By: Deep Srinivasan on 12-15-2023 HBV surface Ab Ql (S) Negative [facility] Comment on above: No serological evide nce of immunity to Hepatitis B Virus. HEPATITIS B SURFACE ANTIGENo n 12-15-2023 HBV surface Ag Ql (S) Negative Negative [facility] HEPATITIS C ANTIBODY IA WITH CONFIRMATIONon 12-15-2023 HCV Ab Ql (S) Negative Negative [facility] Comment on above: The result suggests no [...] disease. 5. Additional incidental findings described above. [employer] Workstation ID: [id number] Dictated by: MARILEE HONG on ThuNovember 26, 2023 12:51:05 PM EDT Transcribed by: ROS DICKERSON on ThuNovember 26, 2023 1:21:00 PM EDT Finalized by: MARILEE HONG on ThuNovember 26, 2023 5:08:57 PM EDT Normal [facility] Comment on above: Order Comment: Injur y/Trauma or Illness?:Illness/Other How long have you had these symptoms (acute/chronic)?:Acute Reason for exam?:post-op port placement History of cancer?:no Surgeries, chemotherapy, or radiation?:no Type of Exam?:Initial Additional signs and symptoms?:. POC GLUCOSE - Sharon 024 Glucose [Mass/Vol] 134 mg/dL High 65-99 [facility] CBC W Auto Differential pane l (Bld)on 11-13-2023 Basophils (Bld) [#/Vol] 0.05 x10*3/uL Normal 0.00-0.10 [facility] Comment on above: Performed By: #### 5 7021-8 #### AKIL CASTLE ([id number]) [facility] ([facility]) [address] [place] [address] 78570 Basophils/100 WBC (Bld) 0.6 % Normal 0.0-2.0 [facility] Comment on above: Performed By: #### 5 7021-8 #### AKIL CASTLE ([id number]) [facility] ([facility]) [address] [place] [address] 19166 Eosinophils (Bld) [#/Vol] 0.25 x10*3/uL Normal 0.00-0.40 [facility] Comment on above: Performed By: #### 5 7021-8 #### AKIL CASTLE ([id number]) [facility] ([facility]) [address] [place] [address] 10401 Eosinophils/100 WBC (Bld) 2.9 % Normal 0.0-6.0 [facility] Comment on above: Performed By: #### 7021-8 #### AKIL CASTLE ([id number]) [facility] ([facility]) [address] [place] [address] 38057 Erythrocyte distribution width (RBC) [Ratio] 28.5 % High 11.5-14.5 [facility] Comment on above: Performed By: #### 5 7021-8 #### AKIL CASTLE ([id number]) [facility] ([facility]) [address] [place] [address] 44005 Hematocrit (Bld) [Volume fraction] 36.1 % Low 41.0-52.0 [facility] Comment on above: Performed By: #### 5 7021-8 #### AKIL CASTLE ([id number]) [facility] ([facility]) [address] [place] [address] 11288 Hemoglobin (Bld) [Mass/Vol] 9.8 g/dL Low 13.5-17.5 [facility] Comment on above: Performed By: #### 5 7021-8 #### AKIL CASTLE ([id number]) [facility] ([facility]) [address] [place] [address] 63652 Immature granulocytes (Bld) [#/Vol] 0.04 x10*3/uL Normal 0.00-0.50 [facility] Comment on above: Performed By: #### 5 7021-8 #### AKIL CASTLE ([id number]) [facility] ([facility]) [address] [place] [address] 13015 Immature granulocytes/100 WBC (Bld) 0.5 % Normal 0.0-0.9 [facility] Comment on above: Result Comment: Vannesa ture Granulocyte Count (IG) includes promyelocytes, myelocytes and metamyelocytes but does not include bands. Percent differential counts (%) should be interpreted in the context of the absolute cell counts (cells/UL). Performed By: #### 5 7021-8 #### AKIL CASTLE ([id number]) [facility] ([facility]) [address] [place] [address] Lymphocytes (Bld) [#/Vol] 0.83 x10*3/uL Normal 0.80-3.00 [facility] Comment on above: Performed By: #### 5 7021-8 #### AKIL CASTLE ([id number]) [facility] ([facility]) [address] [place] [address] 71351 Lymphocytes/100 WBC (Bld) 9.8 % Normal 13.0-44.0 [facility] Comment on above: Performed By: #### 5 7021-8 #### AKIL CASTLE ([id number]) [facility] ([facility]) [address] [place], [place] [address] MCH (RBC) [Entitic mass] 22.2 pg Low 26.0-34.0 [facility] Comment on above: Performed By: #### 5 7021-8 #### AKIL CASTLE ([id number]) [facility] ([facility]) [address] [place] [address] 96799 MCHC (RBC) [Mass/Vol] 27.1 g/dL Low 32.0-36.0 [facility] Comment on above: Performed By: #### 5 7021-8 #### AKIL CASTLE ([id number]) [facility] ([facility]) [address] [place] [address] MCV (RBC) [Entitic vol] 82 fL Normal 80-100 [facility] Comment on above: Performed By: #### 5 7021-8 #### AKIL CASTLE ([id number]) [facility] ([facility]) [address] [place] [address] 92920 Monocytes (Bld) [#/Vol] 0.63 x10*3/uL Normal 0.05-0.80 [facility] Comment on above: Performed By: #### 5 7021-8 #### AKIL CASTLE ([id number]) [facility] ([facility]) [address] [place] [address] 95935 Monocytes/100 WBC (Bld) 7.4 % Normal 2.0-10.0 [facility] Comment on above: Performed By: #### 5 7021-8 #### AKIL CASTLE ([id number]) [facility] ([facility]) [address] [place] [address] 97424 Neutrophils (Bld) [#/Vol] 6.69 x10*3/uL High 1.60-5.50 [facility] Comment on above: Result Comment: Perc ent differential counts (%) should be interpreted in the context of the absolute cell counts (cells/uL). Performed By: #### 5 7021-8 #### AKIL CASTLE ([id number]) [facility] ([facility]) [address] [place] [address] 87103 Neutrophils/100 WBC (Bld) 78.8 % Normal 40.0-80.0 [facility] Comment on above: Performed By: #### 5 7021-8 #### AKIL CASTLE ([id number]) [facility] ([facility]) [address] [place] [address] 11348 Nucleated RBC/100 WBC (Bld) [Ratio] 0.0 /100 WBCs Normal 0.0-0.0 [facility] Comment on above: Performed By: #### 5 7021-8 #### AKIL CASTLE ([id number]) [facility] ([facility]) [address] [place] [address] 17992 Platelets (Bld) [#/Vol] 474 x10*3/uL High 150-450 [facility] Comment on above: Result Comment: Plat elet count verified by smear review. Performed By: #### 5 7021-8 #### AKIL CASTLE ([id number]) [facility] ([facility]) [address] [place] [address] 37516 RBC (Bld) [#/Vol] 4.41 x10*6/uL Low 4.50-5.90 [facility] Comment on above: Performed By: #### 5 7021-8 #### AKIL CASTLE ([id number]) [facility] ([facility]) [address] [place] [address] 43778 WBC (Bld) [#/Vol] 8.5 x10*3/uL Normal 4.4-11.3 [facility] Comment on above: Performed By: #### 5 7021-8 #### AKIL CASTLE ([id number]) [facility] ([facility]) [address] [place] [address] 86379 Cobalaminson 11-13-2023 Cobalamin (Vitamin B12) [Mass/Vol] 248 pg/mL Normal 211-911 [facility] Comment on above: Performed By: #### 2 132-9 #### AKIL CASTLE ([id number]) [facility] ([facility]) [address] [place] [address] 74691 Ferritinon 11-13-2023 Ferritin [Mass/Vol] 253 ng/mL Normal 20-300 [facility] Comment on above: Performed By: #### 2 276-4 #### AKIL CASTLE ([id number]) [facility] ([facility]) [address] [place] [address] 71704 Iron and Iron binding capaci ty panelon 11-13-2023 Iron [Mass/Vol] 26 ug/dL Low 35-150 [facility] Comment on above: Performed By: #### 5 0190-8 #### AKIL CASTLE ([id number]) [facility] ([facility]) [address] [place] [address] 79673 Iron binding capacity [Mass/Vol] 273 ug/dL Normal 240-445 [facility] Comment on above: Performed By: #### 5 0190-8 #### AKIL CASTLE ([id number]) [facility] ([facility]) [address] [place] [address] Iron binding capacity.unsaturated [Mass/Vol] 247 ug/dL Normal 110-370 [facility] Comment on above: Performed By: #### 5 0190-8 #### AKIL CASTLE ([id number]) [facility] ([facility]) [address] [place], [place] [address] Iron saturation [Mass fraction] 10 % Low 25-45 [facility] Comment on above: Performed By: #### 5 0190-8 #### AKIL CASTLE ([id number]) [facility] ([facility]) [address] [place] [address] Reticulocytes panel (Bld)on 11-13-2023 Hemoglobin (Reticulocytes) [Entitic mass] 25 pg Low 28-38 [facility] Comment on above: Performed By: #### 5 0262-5 #### AKIL CASTLE ([id number]) [facility] ([facility]) [address] [place] [address] IMMATURE RETIC FRACTION 30.1 % High <=16.0 [facility] Comment on above: Result Comment: Reti [...] By: #### 5 0262-5 #### AKIL CASTLE ([id number]) [facility] ([facility]) [address] [place], [place] [address] Reticulocytes (Bld) [#/Vol] 0.076 x10*6/uL Normal 0.017-0.110 [facility] Comment on above: Performed By: #### 5 0262-5 #### AKIL CASTLE ([id number]) [facility] ([facility]) [address] [place] [address] Reticulocytes/100 RBC (Bld) 1.7 % Normal 0.5-2.0 [facility] Comment on above: Performed By: #### 5 0262-5 #### BARNARD CORRINE ([id number]) [facility] ([facility]) [address] [place] [address] CEAon 11-11-2023 CEA 42.20 ng/mL High 0.00-2.50 [facility] Comment on above: Result Comment: Test performed using Luma MARIN Immunoassay system. Results determined by assays using different instrumentation may not be comparable. The reference range is for non-smokers. Some smokers may have elevated CEA, usually <5.00. Performed By: #### 4 5219 ####[facility] [address] [place] [address] Dameon Wilkins M.D. [id number] COMPREHENSIVE METABOLIC PANE [facility] 11-11-2023 Albumin [Mass/Vol] 3.7 g/dL Normal 3.2-5.2 [facility] Comment on above: Order Comment: [facility] has implemented the eGFR calculation approach that does not have a coefficient for race that conforms to the NKF-ASN Task Force Recommendations. Performed By: #### 4 6126 ####[facility] [address] [place] [address] Dameon Wilkins M.D. [id number] ALP [Catalytic activity/Vol] 109 U/L Normal 40-150 [facility] Comment on above: Order Comment: [facility] has implemented the eGFR calculation approach that does not have a coefficient for race that conforms to the NKF-ASN Task Force Recommendations. Performed By: #### 4 6188 ####[facility] [address] [place], [place] [id number] Dameon Wilkins M.D. [id number] ALT [Catalytic activity/Vol] 21 U/L Normal 0-50 U/L [facility] Comment on above: Order Comment: [facility] has implemented the eGFR calculation approach that does not have a coefficient for race that conforms to the NKF-ASN Task Force Recommendations. Performed By: #### 4 6126 ####[facility] [address] [place] [address] 37046 Dameon Wilkins M.D. [id number] Anion gap [Moles/Vol] 16 mmol/L Normal 10-20 [facility] Comment on above: Order Comment: [facility] has implemented the eGFR calculation approach that does not have a coefficient for race that conforms to the NKF-ASN Task Force Recommendations. Performed By: #### 4 6126 ####[facility] [address] [place] [address] 16821 Dameon Wilkins M.D. [id number] AST [Catalytic activity/Vol] 25 U/L Normal 0-50 U/L [facility] Comment on above: Order Comment: [facility] has implemented the eGFR calculation approach that does not have a coefficient for race that conforms to the NKF-ASN Task Force Recommendations. Performed By: #### 4 6126 ####[facility] [address] [place] [address] 626[address] Dameon Wilkins M.D. [id number] Bilirubin [Mass/Vol] 0.5 mg/dL Normal 0.0-1.3 [facility] Comment on above: Order Comment: [facility] has implemented the eGFR calculation approach that does not have a coefficient for race that conforms to the NKF-ASN Task Force Recommendations. Performed By: #### 4 6126 ####[facility] [address] [place] [address] 62273 Dameon Wilkins M.D. [id number] Calcium [Mass/Vol] 9.0 mg/dL Normal 8.4-10.2 [facility] Comment on above: Order Comment: [facility] has implemented the eGFR calculation approach that does not have a coefficient for race that conforms to the NKF-ASN Task Force Recommendations. Performed By: #### 4 6126 ####[facility] [address] [place] [address] Dameon Wilkins M.D. [id number] Chloride [Moles/Vol] 99 mmol/L Normal 98-108 [facility] Comment on above: Order Comment: [facility] has implemented the eGFR calculation approach that does not have a coefficient for race that conforms to the NKF-ASN Task Force Recommendations. Performed By: #### 4 6126 ####[facility] [address] [place] [address] 76891 Dameon Wilkins M.D. [id number] Creatinine [Mass/Vol] 0.93 mg/dL Normal 0.80-1.30 [facility] Comment on above: Order Comment: [facility] has implemented the eGFR calculation approach that does not have a coefficient for race that conforms to the NKF-ASN Task Force Recommendations. Performed By: #### 4 6126 ####[facility] [address] [place] [address] 33255 Dameon Wilkins M.D. [id number] EGFR 85 mL/min/1.73 m2 Normal >=60 [facility] Comment on above: Order Comment: [facility] has implemented the eGFR calculation approach that does not have a coefficient for race that conforms to the NKF-ASN Task Force Recommendations. Result Comment: Rod mated GFR was calculated using the 2020 CKD-EPI creatinine equation. Performed By: #### 4 6126 ####[facility] [address] [place] [address] 266[address] Dameon Wilkins M.D. [id number] Glucose [Mass/Vol] 191 mg/dL High 65-99 [facility] Comment on above: Order Comment: [facility] has implemented the eGFR calculation approach that does not have a coefficient for race that conforms to the NKF-ASN Task Force Recommendations. Performed By: #### 4 6126 ####[facility] [address] [place] [address] 228[address] Dameon Wilkins M.D. [id number] HCO3 (Bld) [Moles/Vol] 28 mmol/L Normal 21-32 [facility] Comment on above: Order Comment: [facility] has implemented the eGFR calculation approach that does not have a coefficient for race that conforms to the NKF-ASN Task Force Recommendations. Performed By: #### 4 6126 ####[facility] [facility] [address] [place], [place] [id number] Dameon Wilkins M.D. [id number] Potassium [Moles/Vol] 4.1 mmol/L Normal 3.5-5.1 [facility] Comment on above: Order Comment: [facility] has implemented the eGFR calculation approach that does not have a coefficient for race that conforms to the NKF-ASN Task Force Recommendations. Performed By: #### 4 [id number] ####[facility] [address] [place], [place] [id number] Dameon Wilkins M.D. [id number] Protein [Mass/Vol] 7.4 g/dL Normal 6.0-8.0 [facility] Comment on above: Order Comment: [facility] has implemented the eGFR calculation approach that does not have a coefficient for race that conforms to the NKF-ASN Task Force Recommendations. Performed By: #### 4 [id number] ####[facility] [address] [place], [place] [id number] Dameon Wilkins M.D. [id number] Sodium [Moles/Vol] 139 mmol/L Normal 135-145 [facility] Comment on above: Order Comment: [facility] has implemented the eGFR calculation approach that does not have a coefficient for race that conforms to the NKF-ASN Task Force Recommendations. Performed By: #### 4 [id number] ####[facility] [address] [place], [place] [id number] Dameon Wilkins M.D. [id number] Urea nitrogen [Mass/Vol] 18 mg/dL Normal 8-25 [facility] Comment on above: Order Comment: [facility] has implemented the eGFR calculation approach that does not have a coefficient for race that conforms to the NKF-ASN Task Force Recommendations. Performed By: #### 4 [id number] ####[facility] [address] [place] [address] Dameon Wilkins M.D. [id number] Urea nitrogen/Creatinine [Mass ratio] 19.4 mg/mg Normal 10.0-20.0 [facility] Comment on above: Order Comment: [facility] has implemented the eGFR calculation approach that does not have a coefficient for race that conforms to the NKF-ASN Task Force Recommendations. Performed By: #### 4 [id number] ####[facility] [address] [place] [address] Dameon Wilkins M.D. [id number] Comprehensive metabolic 2000 panelon 11-11-2023 Albumin [Mass/Vol] 3.7 g/dL 3.2 - 5.2 g/dL [facility] ALP [Catalytic activity/Vol] 109 U/L 40 - 150 U/L [facility] ALT [Catalytic activity/Vol] 21 U/L 0-50 U/L [facility] Anion gap [Moles/Vol] 16 mmol/L 10 - 2 0 mmol/L [facility] AST [Catalytic activity/Vol] 25 U/L 0-50 U/L [facility] Bilirubin [Mass/Vol] 0.5 mg/dL 0.0 - 1 .3 mg/dL [facility] Calcium [Mass/Vol] 9.0 mg/dL 8.4 - 10. 2 mg/dL [facility] Chloride [Moles/Vol] 99 mmol/L 98 - 10 8 mmol/L [facility] Creatinine [Mass/Vol] 0.93 mg/dL 0.80 - 1.30 mg/dL [facility] GFR/1.73 sq M.predicted CKD-EPI (S/P/Bld) [Vol rate/Area] 85 - PINF [facility] Comment on above: Estimated GFR was ca lculated using the 2020 CKD-EPI creatinine equation. Glucose [Mass/Vol] 191 mg/dL High 65 - 99 mg/dL [facility] HCO3 [Moles/Vol] 28 mmol/L 21 - 32 mmol/L [facility] Interpretation and review of laboratory results Abnormal [facility] Potassium [Moles/Vol] 4.1 mmol/L 3.5 - 5.1 mmol/L [facility] Protein [Mass/Vol] 7.4 g/dL 6.0 - 8.0 g/dL [facility] Sodium [Moles/Vol] 139 mmol/L 135 - 145 mmol/L [facility] Urea nitrogen [Mass/Vol] 18 mg/dL 8 - 25 mg/dL [facility] Urea nitrogen/Creatinine [Mass ratio] 19.4 mg/mg 10.0 - 20.0 [facility] has implemented the eGFR calculation approach that does not have a coefficient for race that conforms to the NKF-ASN Task Force Recommendations. [facility] MTB SCREENon 11-11-2023 MITOGEN-NIL 1.2188 IU/mL Normal [facility] Comment on above: Performed By: #### L [id number] ####[facility] [address] [place] [address] Dameon Wilkins M.D. [id number] MTB SCREEN INTERPRETATION Negative Normal Negative [facility] Comment on above: Result Comment: No I FN-gamma response to M tuberculosis antigens was detected. Latent infection with M tuberculosis is unlikely. A single negative result does not exclude infection with M tuberculosis. In patients at high risk for M tuberculosis infection,a second test should be considered Performed By: #### L [id number] ####[facility] [address] [place] [address] Dameon Wilkins M.D. [id number] NIL 0.0312 IU/mL Normal [facility] Comment on above: Performed By: #### L [id number] ####[facility] [address] [place] [address] Dameon Wilkins M.D. [id number] TB1-NIL 0.0004 IU/mL Normal 0.00 0.34 [facility] Comment on above: Performed By: #### L [id number] ####[facility] [address] [place] [address] Dameon Wilkins M.D. [id number] TB2-NIL 0.0011 IU/mL Normal 0.00 0.34 [facility] Comment on above: Result Comment: Inte rferon [...] out TB Infection. Performed By: #### L [id number] ####[facility] [address] [place] [address] Dameon Wilkins M.D. [id number] BASIC METABOLIC PANELon 05-0 Anion gap [Moles/Vol] 11 mmol/L Normal 10-20 [facility] Comment on above: Order Comment: [facility] has implemented the eGFR calculation approach that does not have a coefficient for race that conforms to the NKF-ASN Task Force Recommendations. Performed By: #### 4 6124 ####[facility] [address] [place], [place] [address] Saeid Platt M.D. [id number] Calcium [Mass/Vol] 8.5 mg/dL Normal 8.4-10.2 [facility] Comment on above: Order Comment: [facility] has implemented the eGFR calculation approach that does not have a coefficient for race that conforms to the NKF-ASN Task Force Recommendations. Performed By: #### 4 6124 ####[facility] [address] [place], [place] [address] Saeid Platt M.D. [id number] Chloride [Moles/Vol] 97 mmol/L Low 98-108 [facility] Comment on above: Order Comment: [facility] has implemented the eGFR calculation approach that does not have a coefficient for race that conforms to the NKF-ASN Task Force Recommendations. Performed By: #### 4 6124 #### [facility] [address] [place], [place] [address] Saeid Platt M.D. [id number] Creatinine [Mass/Vol] 0.98 mg/dL Normal 0.80-1.30 [facility] Comment on above: Order Comment: [facility] has implemented the eGFR calculation approach that does not have a coefficient for race that conforms to the NKF-ASN Task Force Recommendations. Performed By: #### 4 6124 #### [facility] [address] [place] [address] Saeid Platt M.D. [id number] EGFR 80 mL/min/1.73 m2 Normal >=60 [facility] Comment on above: Order Comment: [facility] has implemented the eGFR calculation approach that does not have a coefficient for race that conforms to the NKF-ASN Task Force Recommendations. Result Comment: Rod mated GFR was calculated using the 2020 CKD-EPI creatinine equation. Performed By: #### 4 6124 #### [facility] [address] [place] [address] Saeid Platt M.D. [id number] Glucose [Mass/Vol] 171 mg/dL High 65-99 [facility] Comment on above: Order Comment: [facility] has implemented the eGFR calculation approach that does not have a coefficient for race that conforms to the NKF-ASN Task Force Recommendations. Performed By: #### 4 6124 #### [facility] [address] [place] [address] Saeid Platt M.D. [id number] HCO3 (Bld) [Moles/Vol] 34 mmol/L High 21-32 [facility] Comment on above: Order Comment: [facility] has implemented the eGFR calculation approach that does not have a coefficient for race that conforms to the NKF-ASN Task Force Recommendations. Performed By: #### 4 6124 #### [facility] [address] [place] [address] Saeid Platt M.D. [id number] Potassium [Moles/Vol] 3.5 mmol/L Normal 3.5-5.1 [facility] Comment on above: Order Comment: [facility] has implemented the eGFR calculation approach that does not have a coefficient for race that conforms to the NKF-ASN Task Force Recommendations. Performed By: #### 4 6124 #### [facility] [address] [place], [place] [address] Saeid Platt M.D. [id number] Sodium [Moles/Vol] 138 mmol/L Normal 135-145 [facility] Comment on above: Order Comment: [facility] has implemented the eGFR calculation approach that does not have a coefficient for race that conforms to the NKF-ASN Task Force Recommendations. Performed By: #### 4 6124 #### [facility] [address] [place], [place] [address] Saeid Platt M.D. [id number] Urea nitrogen [Mass/Vol] 13 mg/dL Normal 8-25 [facility] Comment on above: Order Comment: [facility] has implemented the eGFR calculation approach that does not have a coefficient for race that conforms to the NKF-ASN Task Force Recommendations. Performed By: #### 4 6124 #### [facility] [address] [place], [place] [address] Saeid Platt M.D. [id number] Urea nitrogen/Creatinine [Mass ratio] 13.3 mg/mg Normal 10.0-20.0 [facility] Comment on above: Order Comment: [facility] has implemented the eGFR calculation approach that does not have a coefficient for race that conforms to the NKF-ASN Task Force Recommendations. Performed By: #### 4 [id number] #### [facility] [address] [place], [place] [address] Saeid Platt M.D. [id number] Basic metabolic 2000 panelon 10-29-2023 Anion gap [Moles/Vol] 11 mmol/L 10 - 2 0 mmol/L [facility] Calcium [Mass/Vol] 8.5 mg/dL 8.4 - 10. 2 mg/dL [facility] Chloride [Moles/Vol] 97 mmol/L Low 98 - 10 8 mmol/L [facility] Creatinine [Mass/Vol] 0.98 mg/dL 0.80 - 1.30 mg/dL [facility] GFR/1.73 sq M.predicted CKD-EPI (S/P/Bld) [Vol rate/Area] 80 - PINF [facility] Glucose [Mass/Vol] 171 mg/dL High 65 - 99 mg/dL [facility] HCO3 [Moles/Vol] 34 mmol/L High 21 - 32 mmol/L [facility] Interpretation and review of laboratory results Abnormal [facility] Potassium [Moles/Vol] 3.5 mmol/L 3.5 - 5.1 mmol/L [facility] Sodium [Moles/Vol] 138 mmol/L 135 - 145 mmol/L [facility] Urea nitrogen [Mass/Vol] 13 mg/dL 8 - 25 mg/dL [facility] Urea nitrogen/Creatinine [Mass ratio] 13.3 mg/mg 10.0 - 20.0 [facility] CBCon 10-29-2023 AUTO NRBC 0.0 % Normal [facility] Comment on above: Performed By: #### 4 [id number] #### [facility] [address] [place] [address] Saeid Platt M.D. [id number] AUTO NRBC ABS COUNT 0.00 K/mcL Normal 0.00-0.00 [facility] Comment on above: Performed By: #### 4 [id number] #### [facility] [address] [place] [address] Saeid Platt M.D. [id number] Erythrocyte distribution width (RBC) [Ratio] 28.8 % High 11.6-14.8 [facility] Comment on above: Performed By: #### 4 [id number] #### [facility] [address] [place] [id number] Saeid Platt M.D. [id number] Hematocrit (Bld) [Volume fraction] 31.5 % Low 41.0-53.0 [facility] Comment on above: Performed By: #### 4 [id number] #### [facility] [address] [place] [address] Saeid Platt M.D. [id number] Hemoglobin (Bld) [Mass/Vol] 8.6 g/dL Low 13.5-17.5 [facility] Comment on above: Performed By: #### 4 [id number] #### [facility] [address] [place] [address] Saeid Platt M.D. [id number] MCH (RBC) [Entitic mass] 21.4 pg Low 26.0-34.0 [facility] Comment on above: Performed By: #### 4 [id number] #### [facility] [address] [place] [address] Saeid Platt M.D. [id number] MCV (RBC) [Entitic vol] 78.6 fL Low 80.0-100.0 [facility] Comment on above: Performed By: #### 4 [id number] #### [facility] [address] [place] [address] Saeid Paltt M.D. [id number] MEAN CORPUSCULAR HEMOGLOBIN CONC 27.3 g/dL Low 31.0-37.0 [facility] Comment on above: Performed By: #### 4 [id number] #### [facility] [address] [place] [address] Saeid Platt M.D. [id number] Platelet mean volume (Bld) [Entitic vol] 8.5 fL Low 9.4-12.4 [facility] Comment on above: Performed By: #### 4 [id number] #### [facility] [address] [place] [address] Saeid Platt M.D. [id number] Platelets (Bld) [#/Vol] 300 10*3/uL Normal 150-400 [facility] Comment on above: Performed By: #### 4 [id number] #### [facility] [address] [place] [address] Saeid Platt M.D. [id number] RBC (Bld) [#/Vol] 4.01 10*6/uL Low 4.50-5.90 [facility] Comment on above: Performed By: #### 4 [id number] #### [facility] [address] [place] [address] Saeid Platt M.D. [id number] WBC (Bld) [#/Vol] 4.64 10*3/uL Normal 4.50-11.00 [facility] Comment on above: Performed By: #### 4 [id number] #### [facility] [address] [place] [address] Saeid Platt M.D. [id number] AUTO NRBC 0.0 % Normal [facility] Comment on above: Performed By: #### 4 [id number] #### [facility] [address] [place] [address] Saeid Platt M.D. [id number] AUTO NRBC ABS COUNT 0.00 K/mcL Normal 0.00-0.00 [facility] Comment on above: Performed By: #### 4 [id number] #### [facility] [address] [place] [address] Saeid Platt M.D. [id number] Erythrocyte distribution width (RBC) [Ratio] 29.2 % High 11.6-14.8 [facility] Comment on above: Performed By: #### 4 [id number] #### [facility] [address] [place] [address] Saeid Platt M.D. [id number] Hematocrit (Bld) [Volume fraction] 28.5 % Low 41.0-53.0 [facility] Comment on above: Performed By: #### 4 [id number] #### [facility] [address] [place] [address] Saeid Platt M.D. [id number] Hemoglobin (Bld) [Mass/Vol] 7.7 g/dL Low 13.5-17.5 [facility] Comment on above: Performed By: #### 4 [id number] #### [facility] [address] [place] [address] Saeid Platt M.D. [id number] MCH (RBC) [Entitic mass] 21.4 pg Low 26.0-34.0 [facility] Comment on above: Performed By: #### 4 [id number] #### [facility] [address] [place] [address] Saeid Platt M.D. [id number] MCV (RBC) [Entitic vol] 79.2 fL Low 80.0-100.0 [facility] Comment on above: Performed By: #### 4 [id number] #### [facility] [address] [place] [address] Saeid Platt M.D. [id number] MEAN CORPUSCULAR HEMOGLOBIN CONC 27.0 g/dL Low 31.0-37.0 [facility] Comment on above: Performed By: #### 4 [id number] #### [facility] [address] [place] [address] Saeid Platt M.D. [id number] Platelet mean volume (Bld) [Entitic vol] 9.1 fL Low 9.4-12.4 [facility] Comment on above: Performed By: #### 4 [id number] #### [facility] [address] [place] [address] Saeid Platt M.D. [id number] Platelets (Bld) [#/Vol] 315 10*3/uL Normal 150-400 [facility] Comment on above: Performed By: #### 4 [id number] #### [facility] [address] [place] [address] Saeid Platt M.D. [id number] RBC (Bld) [#/Vol] 3.60 10*6/uL Low 4.50-5.90 [facility] Comment on above: Performed By: #### 4 [id number] #### [facility] [address] [place] [address] Saeid Platt M.D. [id number] WBC (Bld) [#/Vol] 5.00 10*3/uL Normal 4.50-11.00 [facility] Comment on above: Performed By: #### 4 [id number] #### [facility] [address] [place] [address] Saeid Platt M.D. [id number] CBC panel Auto (Bld)on 10-28 Erythrocyte distribution width (RBC) [Entitic vol] 28.8 % High 11.6 - 14.8 % [facility] Hematocrit (Bld) [Volume fraction] 31.5 % Low 41.0 - 53.0 % [facility] Hemoglobin (Bld) [Mass/Vol] 8.6 g/dL Low 13.5 - 17.5 g/dL [facility] Interpretation and review of laboratory results Abnormal [facility] MCH (RBC) [Entitic mass] 21.4 pg Low 26.0 - 34.0 pg [facility] MCHC (RBC) [Mass/Vol] 27.3 g/dL Low 31.0 - 37.0 g/dL [facility] MCV (RBC) [Entitic vol] 78.6 fL Low 80.0 - 100.0 fL [facility] Nucleated RBC (Bld) [#/Vol] 0.00 10*3/uL [facility] Nucleated RBC/100 WBC (Bld) [Ratio] 0.0 % [facility] Platelet mean volume (Bld) [Entitic vol] 8.5 fL Low 9.4 - 12.4 fL [facility] Platelets (Bld) [#/Vol] 300 10*3/uL [facility] RBC (Bld) [#/Vol] 4.01 10*6/uL Low [facility] WBC (Bld) [#/Vol] 4.64 10*3/uL [facility] Erythrocyte distribution width (RBC) [Entitic vol] 29.2 % High 11.6 - 14.8 % [facility] Hematocrit (Bld) [Volume fraction] 28.5 % Low 41.0 - 53.0 % [facility] Hemoglobin (Bld) [Mass/Vol] 7.7 g/dL Low 13.5 - 17.5 g/dL [facility] Interpretation and review of laboratory results Abnormal [facility] MCH (RBC) [Entitic mass] 21.4 pg Low 26.0 - 34.0 pg [facility] MCHC (RBC) [Mass/Vol] 27.0 g/dL Low 31.0 - 37.0 g/dL [facility] MCV (RBC) [Entitic vol] 79.2 fL Low 80.0 - 100.0 fL [facility] Nucleated RBC (Bld) [#/Vol] 0.00 10*3/uL [facility] Nucleated RBC/100 WBC (Bld) [Ratio] 0.0 % [facility] Platelet mean volume (Bld) [Entitic vol] 9.1 fL Low 9.4 - 12.4 fL [facility] Platelets (Bld) [#/Vol] 315 10*3/uL [facility] RBC (Bld) [#/Vol] 3.60 10*6/uL Low [facility] ealth WBC (Bld) [#/Vol] 5.00 10*3/uL [facility] CEAOrdered By: Brittany elizabeth on 10-29-2023 Carcinoembryonic Ag [Mass/Vol] 56.60 ng/mL High 0.00 - 2.50 ng/mL [facility] Interpretation and review of laboratory results Abnormal [facility] CEAon 10-29-2023 CEA 56.60 ng/mL High 0.00-2.50 [facility] Comment on above: Result Comment: Test performed using [employer] MARIN Immunoassay system. Results determined by assays using different instrumentation may not be comparable. The reference range is for non-smokers. Some smokers may have elevated CEA, usually <5.00. Performed By: #### 4 [id number] #### [facility] [address] [place], [place] [address] Saeid Platt M.D. [id number] FERRITINon 10-29-2023 Ferritin [Mass/Vol] 517 ng/mL High 30-400 [facility] Comment on above: Performed By: #### 4 5614 #### [facility] [address] [place], [place] [address] Saeid Platt M.D. [id number] Ferritinon 10-29-2023 Ferritin [Mass/Vol] 517 ng/mL High 30 - 400 ng/mL [facility] Glucose (Bld) [Mass/Vol]on 0 10-29-2023 Glucose [Mass/Vol] 214 mg/dL High 65 - 99 mg/dL [facility] Interpretation and review of laboratory results Abnormal [facility] Glucose [Mass/Vol] 174 mg/dL High 65 - 99 mg/dL [facility] Interpretation and review of laboratory results Abnormal [facility] IRON AND TIBCon 10-29-2023 Iron [Mass/Vol] 19 ug/dL Low 40-165 [facility] Comment on above: Performed By: #### 4 6910 #### LAB [address] [place], [place] [address] Saeid Platt M.D. [id number] IRON SATURATION 10 % Low 20-50 [facility] Comment on above: Performed By: #### 4 6910 ####[facility] [address] [place], [place] [address] Saeid Platt M.D. [id number] TIBC (CALCULATED) 186 mcg/dL Low 225-430 [facility] Comment on above: Performed By: #### 4 [id number] #### [facility] [address] [place] [address] Saeid Platt M.D. [id number] Iron and Iron binding capaci ty panelon 10-29-2023 Iron [Mass/Vol] 19 ug/dL Low [facility] Iron binding capacity [Mass/Vol] 186 Low [facility] Iron saturation [Mass fraction] 10 % Low 20 - 50 % [facility] No Panel Informationon 10-28 Interpretation and review of laboratory results Abnormal [facility] Glucose [Mass/Vol] 214 mg/dL High 65-99 [facility] Glucose [Mass/Vol] 174 mg/dL High 65-99 [facility] BASIC METABOLIC PANELon 0 Anion gap [Moles/Vol] 12 mmol/L Normal 10-20 [facility] Comment on above: Order Comment: [facility] has implemented the eGFR calculation approach that does not have a coefficient for race that conforms to the NKF-ASN Task Force Recommendations. Performed By: #### 4 6124 #### LAB [address] [place] [id number] Saeid Platt M.D. [id number] Calcium [Mass/Vol] 8.6 mg/dL Normal 8.4-10.2 [facility] Comment on above: Order Comment: [facility] has implemented the eGFR calculation approach that does not have a coefficient for race that conforms to the NKF-ASN Task Force Recommendations. Performed By: #### 4 6124 ####[facility] [address] [place] [address] Saeid Platt M.D. [id number] Chloride [Moles/Vol] 93 mmol/L Low 98-108 [facility] Comment on above: Order Comment: [facility] has implemented the eGFR calculation approach that does not have a coefficient for race that conforms to the NKF-ASN Task Force Recommendations. Performed By: #### 4 6124 #### [facility] [address] [place] [address] Saeid Platt M.D. [id number] Creatinine [Mass/Vol] 0.98 mg/dL Normal 0.80-1.30 [facility] Comment on above: Order Comment: [facility] has implemented the eGFR calculation approach that does not have a coefficient for race that conforms to the NKF-ASN Task Force Recommendations. Performed By: #### 4 6124 ####[facility] [address] [place] [address] Saeid Platt M.D. [id number] EGFR 80 mL/min/1.73 m2 Normal >=60 [facility] Comment on above: Order Comment: [facility] has implemented the eGFR calculation approach that does not have a coefficient for race that conforms to the NKF-ASN Task Force Recommendations. Result Comment: Rod mated GFR was calculated using the 2020 CKD-EPI creatinine equation. Performed By: #### 4 6124 #### [facility] [address] [place] [address] Saeid Platt M.D. [id number] Glucose [Mass/Vol] 169 mg/dL High 65-99 [facility] Comment on above: Order Comment: [facility] has implemented the eGFR calculation approach that does not have a coefficient for race that conforms to the NKF-ASN Task Force Recommendations. Performed By: #### 4 6124 ####[facility] [address] [place] [address] Saeid Platt M.D. [id number] HCO3 (Bld) [Moles/Vol] 34 mmol/L High 21-32 [facility] Comment on above: Order Comment: [facility] has implemented the eGFR calculation approach that does not have a coefficient for race that conforms to the NKF-ASN Task Force Recommendations. Performed By: #### 4 6124 #### [facility] [address] [place] [address] Saeid Platt M.D. [id number] Potassium [Moles/Vol] 3.9 mmol/L Normal 3.5-5.1 [facility] Comment on above: Order Comment: [facility] has implemented the eGFR calculation approach that does not have a coefficient for race that conforms to the NKF-ASN Task Force Recommendations. Performed By: #### 4 6124 #### [facility] [address] [place] [address] Saeid Platt M.D. [id number] Sodium [Moles/Vol] 135 mmol/L Normal 135-145 [facility] Comment on above: Order Comment: [facility] has implemented the eGFR calculation approach that does not have a coefficient for race that conforms to the NKF-ASN Task Force Recommendations. Performed By: #### 4 6124 #### LAB [address] [place] [address] Saeid Platt M.D. [id number] Urea nitrogen [Mass/Vol] 14 mg/dL Normal 8-25 [facility] Comment on above: Order Comment: [facility] has implemented the eGFR calculation approach that does not have a coefficient for race that conforms to the NKF-ASN Task Force Recommendations. Performed By: #### [id number] #### LAB [address] [address] Saeid Platt M.D. [id number] Urea nitrogen/Creatinine [Mass ratio] 14.3 mg/mg Normal 10.0-20.0 [facility] Comment on above: Order Comment: [facility] has implemented the eGFR calculation approach that does not have a coefficient for race that conforms to the NKF-ASN Task Force Recommendations. Performed By: #### [id number] #### LAB [address] [address] Saeid Platt M.D. [id number] Basic metabolic 2000 panelon 10-28-2023 Anion gap [Moles/Vol] 12 mmol/L 10 - 2 0 mmol/L [facility] Calcium [Mass/Vol] 8.6 mg/dL 8.4 - 10. 2 mg/dL [facility] Chloride [Moles/Vol] 93 mmol/L Low 98 - 10 8 mmol/L [facility] Creatinine [Mass/Vol] 0.98 mg/dL 0.80 - 1.30 mg/dL [facility] GFR/1.73 sq M.predicted CKD-EPI (S/P/Bld) [Vol rate/Area] 80 - PINF [facility] Glucose [Mass/Vol] 169 mg/dL High 65 - 99 mg/dL [facility] HCO3 [Moles/Vol] 34 mmol/L High 21 - 32 mmol/L [facility] Interpretation and review of laboratory results Abnormal [facility] Potassium [Moles/Vol] 3.9 mmol/L 3.5 - 5.1 mmol/L [facility] Sodium [Moles/Vol] 135 mmol/L 135 - 145 mmol/L [facility] Urea nitrogen [Mass/Vol] 14 mg/dL 8 - 25 mg/dL [facility] Urea nitrogen/Creatinine [Mass ratio] 14.3 mg/mg 10.0 - 20.0 [facility] CBCon 10-28-2023 AUTO NRBC 0.0 % Normal [facility] Comment on above: Performed By: #### [id number] #### LAB [address] [address] Saeid Platt M.D. [id number] AUTO NRBC ABS COUNT 0.00 K/mcL Normal 0.00-0.00 [facility] Comment on above: Performed By: #### 4 [id number] ####[facility] LAB [address] [place], [place] [address] Saeid Platt M.D. [id number] Erythrocyte distribution width (RBC) [Ratio] 29.3 % High 11.6-14.8 [facility] Comment on above: Performed By: #### 4 [id number] #### LAB [address] [address] Saeid Platt M.D. [id number] Hematocrit (Bld) [Volume fraction] 28.5 % Low 41.0-53.0 [facility] Comment on above: Performed By: #### 4 [id number] #### LAB [address] [address] Saeid Platt M.D. [id number] Hemoglobin (Bld) [Mass/Vol] 7.7 g/dL Low 13.5-17.5 [facility] Comment on above: Performed By: #### 4 [id number] #### LAB [address] [address] Saeid Platt M.D. [id number] MCH (RBC) [Entitic mass] 21.3 pg Low 26.0-34.0 [facility] Comment on above: Performed By: #### 4 [id number] #### LAB [address] [address] Saeid Platt M.D. [id number] MCV (RBC) [Entitic vol] 78.9 fL Low 80.0-100.0 [facility] Comment on above: Performed By: #### 4 [id number] #### LAB [address] [address] Saeid Platt M.D. [id number] MEAN CORPUSCULAR HEMOGLOBIN CONC 27.0 g/dL Low 31.0-37.0 [facility] Comment on above: Performed By: #### 4 [id number] #### LAB [address] [address] Saeid Platt M.D. [id number] Platelet mean volume (Bld) [Entitic vol] 9.0 fL Low 9.4-12.4 [facility] Comment on above: Performed By: #### 4 [id number] #### LAB [address] [address] Seaid Platt M.D. [id number] Platelets (Bld) [#/Vol] 293 10*3/uL Normal 150-400 [facility] Comment on above: Performed By: #### 4 [id number] #### LAB [address] [address] Saeid Platt M.D. [id number] RBC (Bld) [#/Vol] 3.61 10*6/uL Low 4.50-5.90 [facility] Comment on above: Performed By: #### 4 [id number] #### LAB [address] [place], [place] [address] Saeid Platt M.D. [id number] WBC (Bld) [#/Vol] 5.21 10*3/uL Normal 4.50-11.00 [facility] Comment on above: Performed By: #### 4 [id number] #### LAB [address] [place], [place] [address] Saeid Platt M.D. [id number] CBC panel Auto (Bld)on 10-27 Erythrocyte distribution width (RBC) [Entitic vol] 29.3 % High 11.6 - 14.8 % [facility] Hematocrit (Bld) [Volume fraction] 28.5 % Low 41.0 - 53.0 % [facility] Hemoglobin (Bld) [Mass/Vol] 7.7 g/dL Low 13.5 - 17.5 g/dL [facility] Interpretation and review of laboratory results Abnormal [facility] MCH (RBC) [Entitic mass] 21.3 pg Low 26.0 - 34.0 pg [facility] MCHC (RBC) [Mass/Vol] 27.0 g/dL Low 31.0 - 37.0 g/dL [facility] MCV (RBC) [Entitic vol] 78.9 fL Low 80.0 - 100.0 fL [facility] Nucleated RBC (Bld) [#/Vol] 0.00 10*3/uL [facility] Nucleated RBC/100 WBC (Bld) [Ratio] 0.0 % [facility] Platelet mean volume (Bld) [Entitic vol] 9.0 fL Low 9.4 - 12.4 fL [facility] Platelets (Bld) [#/Vol] 293 10*3/uL [facility] RBC (Bld) [#/Vol] 3.61 10*6/uL Low [facility] WBC (Bld) [#/Vol] 5.21 10*3/uL [facility] Glucose (Bld) [Mass/Vol]on 10-28-2023 Glucose [Mass/Vol] 152 mg/dL High 65 - 99 mg/dL [facility] Interpretation and review of laboratory results Abnormal [facility] Glucose [Mass/Vol] 183 mg/dL High 65 - 99 mg/dL [facility] Interpretation and review of laboratory results Abnormal [facility] Glucose [Mass/Vol] 267 mg/dL High 65 - 99 mg/dL [facility] Interpretation and review of laboratory results Abnormal [facility] Glucose [Mass/Vol] 175 mg/dL High 65 - 99 mg/dL [facility] Interpretation and review of laboratory results Abnormal [facility] Glucose [Mass/Vol] 152 mg/dL High 65-99 [facility] Glucose [Mass/Vol] 183 mg/dL High 65-99 [facility] Glucose [Mass/Vol] 267 mg/dL High 65-99 [facility] Glucose [Mass/Vol] 175 mg/dL High 65-99 [facility] BASIC METABOLIC PANEL 09-29-2023 Anion gap [Moles/Vol] 13 mmol/L Normal 10-20 [facility] Comment on above: Order Comment: [facility] has implemented the eGFR calculation approach that does not have a coefficient for race that conforms to the NKF-ASN Task Force Recommendations. Performed By: #### 4 [id number] #### LAB [address] [place], [place] [address] Saeid Platt M.D. [id number] Calcium [Mass/Vol] 8.8 mg/dL Normal 8.4-10.2 [facility] Comment on above: Order Comment: [facility] has implemented the eGFR calculation approach that does not have a coefficient for race that conforms to the NKF-ASN Task Force Recommendations. Performed By: #### 4 [id number] ####[facility] LAB [address] [place], [place] [address] Saeid Platt M.D. [id number] Chloride [Moles/Vol] 94 mmol/L Low 98-108 [facility] Comment on above: Order Comment: [facility] has implemented the eGFR calculation approach that does not have a coefficient for race that conforms to the NKF-ASN Task Force Recommendations. Performed By: #### 4 6124 ####[facility] LAB [address] [place], [place] [address] Saeid Platt M.D. [id number] Creatinine [Mass/Vol] 0.89 mg/dL Normal 0.80-1.30 [facility] Comment on above: Order Comment: [facility] has implemented the eGFR calculation approach that does not have a coefficient for race that conforms to the NKF-ASN Task Force Recommendations. Performed By: #### 4 [id number] #### LAB [address] [address] Saeid Platt M.D. [id number] EGFR 89 mL/min/1.73 m2 Normal >=60 [facility] Comment on above: Order Comment: [facility] has implemented the eGFR calculation approach that does not have a coefficient for race that conforms to the NKF-ASN Task Force Recommendations. Result Comment: Rod mated GFR was calculated using the 2020 CKD-EPI creatinine equation. Performed By: #### 4 [id number] #### LAB [address] [address] Saeid Platt M.D. [id number] Glucose [Mass/Vol] 158 mg/dL High 65-99 [facility] Comment on above: Order Comment: [facility] has implemented the eGFR calculation approach that does not have a coefficient for race that conforms to the NKF-ASN Task Force Recommendations. Performed By: #### 4 [id number] #### LAB [address] [address] Saeid Platt M.D. [id number] HCO3 (Bld) [Moles/Vol] 35 mmol/L High 21-32 [facility] Comment on above: Order Comment: [facility] has implemented the eGFR calculation approach that does not have a coefficient for race that conforms to the NKF-ASN Task Force Recommendations. Performed By: #### 4 [id number] #### LAB [address] [address] Saeid Platt M.D. [id number] Potassium [Moles/Vol] 4.1 mmol/L Normal 3.5-5.1 [facility] Comment on above: Order Comment: [facility] has implemented the eGFR calculation approach that does not have a coefficient for race that conforms to the NKF-ASN Task Force Recommendations. Performed By: #### 4 [id number] #### LAB [address] [place], [place] [address] Saeid Platt M.D. [id number] Sodium [Moles/Vol] 138 mmol/L Normal 135-145 [facility] Comment on above: Order Comment: [facility] has implemented the eGFR calculation approach that does not have a coefficient for race that conforms to the NKF-ASN Task Force Recommendations. Performed By: #### 4 [id number] #### LAB [address] [place], [place] [address] Saeid Platt M.D. [id number] Urea nitrogen [Mass/Vol] 14 mg/dL Normal 8-25 [facility] Comment on above: Order Comment: [facility] has implemented the eGFR calculation approach that does not have a coefficient for race that conforms to the NKF-ASN Task Force Recommendations. Performed By: #### 4 [id number] #### LAB [address] [place], [place] [address] Saeid Platt M.D. [id number] Urea nitrogen/Creatinine [Mass ratio] 15.7 mg/mg Normal 10.0-20.0 [facility] Comment on above: Order Comment: [facility] has implemented the eGFR calculation approach that does not have a coefficient for race that conforms to the NKF-ASN Task Force Recommendations. Performed By: #### 4 [id number] #### LAB [address] [place], [place] [address] Saeid Platt M.D. [id number] Basic metabolic 2000 panelon 10-27-2023 Anion gap [Moles/Vol] 13 mmol/L 10 - 2 0 mmol/L [facility] Calcium [Mass/Vol] 8.8 mg/dL 8.4 - 10. 2 mg/dL [facility] Chloride [Moles/Vol] 94 mmol/L Low 98 - 10 8 mmol/L [facility] Creatinine [Mass/Vol] 0.89 mg/dL 0.80 - 1.30 mg/dL [facility] GFR/1.73 sq M.predicted CKD-EPI (S/P/Bld) [Vol rate/Area] 89 - PINF [facility] Glucose [Mass/Vol] 158 mg/dL High 65 - 99 mg/dL [facility] HCO3 [Moles/Vol] 35 mmol/L High 21 - 32 mmol/L [facility] Interpretation and review of laboratory results Abnormal [facility] Potassium [Moles/Vol] 4.1 mmol/L 3.5 - 5.1 mmol/L [facility] Sodium [Moles/Vol] 138 mmol/L 135 - 145 mmol/L [facility] Urea nitrogen [Mass/Vol] 14 mg/dL 8 - 25 mg/dL [facility] Urea nitrogen/Creatinine [Mass ratio] 15.7 mg/mg 10.0 - 20.0 [facility] CBCon 10-27-2023 AUTO NRBC 0.0 % Normal [facility] Comment on above: Performed By: #### [id number] #### LAB [address] [address] Saeid Platt M.D. [id number] AUTO NRBC ABS COUNT 0.00 K/mcL Normal 0.00-0.00 [facility] Comment on above: Performed By: #### 4 [id number] #### LAB [address] [address] Saeid Platt M.D. [id number] Erythrocyte distribution width (RBC) [Ratio] 29.8 % High 11.6-14.8 [facility] Comment on above: Performed By: #### 4 [id number] #### LAB [address] [address] Saeid Platt M.D. [id number] Hematocrit (Bld) [Volume fraction] 30.7 % Low 41.0-53.0 [facility] Comment on above: Performed By: #### 4 [id number] #### LAB [address] [address] Saeid Platt M.D. [id number] Hemoglobin (Bld) [Mass/Vol] 8.3 g/dL Low 13.5-17.5 [facility] Comment on above: Performed By: #### 4 [id number] #### LAB [address] [address] Saeid Platt M.D. [id number] MCH (RBC) [Entitic mass] 21.3 pg Low 26.0-34.0 [facility] Comment on above: Performed By: #### 4 [id number] #### LAB [address] [address] Saeid Platt M.D. [id number] MCV (RBC) [Entitic vol] 78.9 fL Low 80.0-100.0 [facility] Comment on above: Performed By: #### 4 [id number] #### LAB [address] [address] Saeid Platt M.D. [id number] MEAN CORPUSCULAR HEMOGLOBIN CONC 27.0 g/dL Low 31.0-37.0 [facility] Comment on above: Performed By: #### 4 [id number] #### LAB [address] [address] Saeid Platt M.D. [id number] Platelet mean volume (Bld) [Entitic vol] 9.2 fL Low 9.4-12.4 [facility] Comment on above: Performed By: #### 4 [id number] #### LAB [address] [address] Saeid Platt M.D. [id number] Platelets (Bld) [#/Vol] 305 10*3/uL Normal 150-400 [facility] Comment on above: Performed By: #### 4 [id number] #### LAB [address] [address] Saeid Platt M.D. [id number] RBC (Bld) [#/Vol] 3.89 10*6/uL Low 4.50-5.90 [facility] Comment on above: Performed By: #### 4 [id number] #### LAB [address] [address] Saeid Platt M.D. [id number] WBC (Bld) [#/Vol] 8.63 10*3/uL Normal 4.50-11.00 [facility] Comment on above: Performed By: #### 4 [id number] #### LAB [address] [place], [place] [address] Saeid Platt M.D. [id number] CBC panel Auto (Bld)on 10-26 Erythrocyte distribution width (RBC) [Entitic vol] 29.8 % High 11.6 - 14.8 % [facility] Hematocrit (Bld) [Volume fraction] 30.7 % Low 41.0 - 53.0 % [facility] Hemoglobin (Bld) [Mass/Vol] 8.3 g/dL Low 13.5 - 17.5 g/dL [facility] Interpretation and review of laboratory results Abnormal [facility] MCH (RBC) [Entitic mass] 21.3 pg Low 26.0 - 34.0 pg [facility] MCHC (RBC) [Mass/Vol] 27.0 g/dL Low 31.0 - 37.0 g/dL [facility] MCV (RBC) [Entitic vol] 78.9 fL Low 80.0 - 100.0 fL [facility] Nucleated RBC (Bld) [#/Vol] 0.00 10*3/uL [facility] Nucleated RBC/100 WBC (Bld) [Ratio] 0.0 % [facility] Platelet mean volume (Bld) [Entitic vol] 9.2 fL Low 9.4 - 12.4 fL [facility] Platelets (Bld) [#/Vol] 305 10*3/uL [facility] RBC (Bld) [#/Vol] 3.89 10*6/uL Low [facility] WBC (Bld) [#/Vol] 8.63 10*3/uL [facility] Glucose (Bld) [Mass/Vol]on 0 10-27-2023 Glucose [Mass/Vol] 193 mg/dL High 65 - 99 mg/dL [facility] Interpretation and review of laboratory results Abnormal [facility] Glucose [Mass/Vol] 280 mg/dL High 65 - 99 mg/dL [facility] Interpretation and review of laboratory results Abnormal [facility] Glucose [Mass/Vol] 147 mg/dL High 65 - 99 mg/dL [facility] Interpretation and review of laboratory results Abnormal [facility] Glucose [Mass/Vol] 161 mg/dL High 65 - 99 mg/dL [facility] Interpretation and review of laboratory results Abnormal [facility] POC GLUCOSE - [place] 024 Glucose [Mass/Vol] 193 mg/dL High 65-99 [facility] Glucose [Mass/Vol] 280 mg/dL High 65-99 [facility] Glucose [Mass/Vol] 147 mg/dL High 65-99 [facility] Glucose [Mass/Vol] 161 mg/dL High 65-99 [facility] Basic metabolic 2000 panelon 10-26-2023 Anion gap [Moles/Vol] 10 mmol/L 10 - 2 0 mmol/L [facility] Calcium [Mass/Vol] 8.8 mg/dL 8.4 - 10. 2 mg/dL [facility] Chloride [Moles/Vol] 94 mmol/L Low 98 - 10 8 mmol/L [facility] Creatinine [Mass/Vol] 0.84 mg/dL 0.80 - 1.30 mg/dL [facility] GFR/1.73 sq M.predicted CKD-EPI (S/P/Bld) [Vol rate/Area] 90 - PINF [facility] Glucose [Mass/Vol] 176 mg/dL High 65 - 99 mg/dL [facility] HCO3 [Moles/Vol] 37 mmol/L High 21 - 32 mmol/L [facility] Interpretation and review of laboratory results Abnormal [facility] Potassium [Moles/Vol] 4.0 mmol/L 3.5 - 5.1 mmol/L [facility] Sodium [Moles/Vol] 137 mmol/L 135 - 145 mmol/L [facility] Urea nitrogen [Mass/Vol] 10 mg/dL 8 - 25 mg/dL [facility] Urea nitrogen/Creatinine [Mass ratio] 11.9 mg/mg 10.0 - 20.0 [facility] CBC panel Auto (Bld)on 10-25 Erythrocyte distribution width (RBC) [Entitic vol] 29.2 % High 11.6 - 14.8 % [facility] Hematocrit (Bld) [Volume fraction] 30.5 % Low 41.0 - 53.0 % [facility] Hemoglobin (Bld) [Mass/Vol] 8.1 g/dL Low 13.5 - 17.5 g/dL [facility] Interpretation and review of laboratory results Abnormal [facility] MCH (RBC) [Entitic mass] 21.0 pg Low 26.0 - 34.0 pg [facility] MCHC (RBC) [Mass/Vol] 26.6 g/dL Low 31.0 - 37.0 g/dL [facility] MCV (RBC) [Entitic vol] 79.2 fL Low 80.0 - 100.0 fL [facility] Nucleated RBC (Bld) [#/Vol] 0.00 10*3/uL [facility] Nucleated RBC/100 WBC (Bld) [Ratio] 0.0 % [facility] Platelet mean volume (Bld) [Entitic vol] 9.3 fL Low 9.4 - 12.4 fL [facility] Platelets (Bld) [#/Vol] 285 10*3/uL [facility] RBC (Bld) [#/Vol] 3.85 10*6/uL Low [facility] WBC (Bld) [#/Vol] 5.81 10*3/uL [facility] Glucose (Bld) [Mass/Vol]on 0 10-26-2023 Glucose [Mass/Vol] 124 mg/dL High 65 - 99 mg/dL [facility] Interpretation and review of laboratory results Abnormal [facility] Glucose [Mass/Vol] 168 mg/dL High 65 - 99 mg/dL [facility] Interpretation and review of laboratory results Abnormal [facility] Glucose [Mass/Vol] 266 mg/dL High 65 - 99 mg/dL [facility] Interpretation and review of laboratory results Abnormal [facility] Glucose [Mass/Vol] 168 mg/dL High 65 - 99 mg/dL [facility] Interpretation and review of laboratory results Abnormal [facility] OCCULT BLOOD STOOL IMMUNOASS AY ([facility] ONLY)on 10-26-2023 OCCULT BLOOD STOOL IMMUNOASSAY ([facility] ONLY) Positive Abnormal Negative for Occult Blood [facility] Comment on above: Performed By: #### [id number] #### LAB [address] [place], [place] [address] Saeid Platt M.D. [id number] Occult Blood Stool Immunoass ay ([facility] Only)Ordered By: Anastasia Osorio on 10-26-2023 Hemoglobin.gastrointe stinal Ql (Stl) Positive Abnormal Negative for Occult Blood [facility] Interpretation and review of laboratory results Abnormal [facility] POC GLUCOSE - [place] 024 Glucose [Mass/Vol] 124 mg/dL High 65-99 [facility] Glucose [Mass/Vol] 168 mg/dL High 65-99 [facility] Glucose [Mass/Vol] 266 mg/dL High 65-99 [facility] Tissue ExamOrdered By: Kiran Lopez on 10-26-2023 Annotation comment [Interpretation] Narrative o5anvTZeDASsuARvWZVrWLwkac CzWXMsgDPtR4MjgxqjNVtjBS1y NP0bmDlxuDKmkMGgDMHpHhZpu2 zhj828sRLpk8unKXXXnxyxpVv8 aCgmR45gn2W4RespT49gtZIbEP A4JMWsBLGbeTBvKSWhNWF9PSWn rPMuF8nwUCCjZK9olpuyGUznXN ytJMMmrGE0AMOtcAGhK0ZsZGWq UNvoXGHuqiz9KhKfId1toQFmxH cyMFxwYXJkXHBsYWluXGZzMjAg IZ9gaU3xmZzxtU8bjWRuvOSbzA QiaHIapzJaXg4iPO4jw14ppBUt DKKutYQipjIfqs60TKpkjvNhAX lFQXnkORDQTfvzEZQPHornYK6K IddgWYEqqsFiwd9sEHBfiCRzhF FnZSBhbmFseXNpcywgYWxsIHNo v7uueC44QUZ0VENkf4EbxK3wJN rpgpXak4opnjOlirYmIIUicE2e iOAbfhLooFWfYgLtJUqqy3Whtt JpxZr3dzJsrwAqT18vg6kzdMCb rWL7sFGkPQWpaEyjbx1cKHYfzE mygPIck5WlUeqaGMJqVT9coZvj TMAgQOQUOL7bpBBgMAQckaJUpZ joA21auOHvrXDmo5oxqzPkhDBo p5HblGA1YDBgQPSdhVd4zUI2Hz xfDQDuyNFhWRQsAVGJdz3dZBLf oB8mGCwtA81aqU1fSP84II8bJR lqkDDaz1pwh5CjH8xqvBcdsYE5 BFKeEJ6zqsZyjw1haHT3NIh0Wj RmSUa1TZKlp74ur9GhNIXfqGYx ZXRlZCBhdCBPaGlvSGVhbHRoIF cyazSqn7unTY8tztNucEZaQCWF o5OvqBBusThyWcI1FFxaXWEqbw WgORK9FW87WJrrUMLjw1MeODhs SRVXAZV0GVtwOx2aCOhsTJEwM5 BUIGNvZGVzOlxwYXJccGFyIDg4 MzYxIHggNFxwYXJccGFyfQ== [employer] Work Phone: Case Report [employer] Work Phone: Clinical information i0kazRSjYHFzxXXcLEX wNVxhbn IzGPUuwRYzP3JdymarJGbfWP3s TV7zuAlyhVJgcAZeZEShLfAua6 ncz107rMYsp4nqTMYGowosqNj2 xRokW65ao6H0VwkbH3bcQCOqSY fmHMZgKOctoMCqMWc8COSidEOo nnLkTdUeZHQjkEQcrQD8UHXcYY 6yckqfOItfPFyaSPJcqcF7MJBh aLUfR6OfHFYkLS2qhwoxGXZ7SO zgGVAfJQR7TpFoGRZcf3Lqwpv7 MjBccGFyZFxwbGFpblxmczIwXG BzWDEMCYPxpAAoVXGmUYZ7h4Jr I8FlEWBqb3xlynDlUZ5xIZLaE6 YwICBccGFyfQ== [employer] Work Phone: Pathology report final diagnosis Narrative c2nvzVIfDIEvfUDvUOUmGLcwrk LiIVKlxNOmH1InuyprQOadXJ1k AM4vdLzjdFAhjIMmJUHwZzJfp3 ijx660pJDny2uxCZGDvcddsIa1 gLdcI89cg5U4WsxsC5hxJMEqSR fyR6AsRT0kBBcoBjq5RAFpAves qfJiYCvkheSkvsWfIdi2YVT6sT kyEWUlbgvpBiK8GCfbXERjjrra JSh3UDcdDBDagAW4QJOzbPZuB8 DfKVQbRY8tkbi8YUN3PMryIFPb KxL4BXLarUUgNVXnmKuwFNgbo5 39WCD9HyPsEYPqghRkyUoegL9k HkTuYZdnQZQtmBTzw4PdGNYhQ2 phAPYyTUGxtDSkLAzkk6Glq1nu dHJwYWRkZnQzXHRycGFkZGZsM1 t0wdXvRMZkOMC2SCWrbWKfMQYt K8a6xaYyAVWuNVQ6HADwnFAtZV WjF3xmrCAphWO5MSvoaPHlJDH1 MFRwIERur13uONGgXrZsfmigEz Nekq9iepHmR8jmsmFzjtmdzaAl ry2dNIujfXFcYOVaZOMpNWOeb8 3bUWAzyfIhgCQwoWquaRG9a0lx LNNdS8cdaNxKuIU2cKXiAsD5YV QybPw3URK7IoHsqQUqUYtwuyZd zHfiU6ovGVZDMT7VEjOxKESSXl 6JDSYIJO3BNPPnB4WyfWxfslGl nRnkw2xnbAHlFLnhBQgjZAHeyS Sxn1BrdKIkjVCkOQkljHxuJ0nu zHdUCB79FObpbZXqERQvIaKvIZ StpPChFPXiZ0a3wePbVPPmWEY2 RDWciVLyDRMvI7n4huHbWJQtPM O7EWSwpJZxIKJgB1hwiRSjZXK9 INUkGPIwDROhBCH6OMVnU0lgaz NihPialjThi6gkckKpkwXnLAIx YnJkcnJcYnJkcnNcYnJkcncxMF xjbGJyZHJiXGJyZHJzXGJyZHJ3 LTTcM0i8UJX2ECk9LBWkWvRbT9 jdgBlqDMZna1rmELAgCSQ0MJas VNpmqCUfYFNwA9ezanXgjZzeuu Ydm2bqxdRnqlCqQBVtAiCrmhdb YnJkcnNcYnJkcncxMFxjbGJyZH LjRZLxIOLkTENkCQO8YJPdT0hx tcFiZysgjeJcz7nbxtMvzjMqYJ ZnogRzsXCltXntgVS8p3qzBZIb W0lrmOyTvRX3gJF7FZsnXOcwfU FkUkCsS0cqapNkvJnquoLbk9zt cmRydzEwXGNsYnJkcmxcYnJkcn NcYnJkcncxMFxjbGJyZHJyXGJy CVUgUITtVSI2QWQuK6zxdrXrCh yjfyAcm8eyloGlsvEvNFJovhAd dCRywAxqeLX6g9zrGRFuU8zsbY zIoXA5oHM8PMSmQ9KhyWlpDRny MBapTSVhTNtsjMQeABWer0AlYM ErDIdwO0LpyQdqBWGnVAifvCJs XGNlbGxccGFyZFxpbnRibFxwcm 85QEO5p6bpaPLzDYmoXdrtpSFz hlE6FZfCBNZWLQtJZlXsTR6oQP wQM1WFBUfIEuq9DFNvYPikrAX6 i1zzaJPtm7o6MEnhYWC0pGQsM8 t8FHymkVmfq6ceW0OweKw8FDQm CHsms4ujWKQdHIqxl8TvUQmONF CVCH0YDB1jfNV6ZYuIBCXZPLy0 GGWtNIiazTR0z9ndxGDgl9q3JT fyBKM6wTvmwJUfsxqvslHlCCJm qZuhaE31Dhiqkb29SXHpo2brTA RjwSXDaBQ8iJ4sjkQekOj0vcKf ZGRmdDNcdHJwYWRkZmwzXHRycG FkZGwxMDVcdHJwYWRkZnIzXHRy cGFkZHIxMDVcdHJwYWRkZmIzXG NsYnJkcnRcYnJkcnNcYnJkcncx MFxjbGJyZHJsXGJyZHJzXGJyZH H5YDYsU5bmjuAzmfvksaOpt5xk cmRydzEwXGNsYnJkcmJcYnJkcn NcYnJkcncxMFxjbHZlcnRhbHRc G9imsDNRrAV6yVKmW4y9L2bhlC o4BDs9RATiaPj3PVT2TFxvoDCc OQM9VMIxKGZdVYKpXOZ5LZGqC2 jwdgDrcGugpeOmx8kqcrVqgbIp XGNsYnJkcnJcYnJkcnNcYnJkcn cxMFxjbGJyZHJiXGJyZHJzXGJy YIE8TCRvO3a5VSE6TIv1GXZgZe KfY6desUgqULGrp8vbUIMpNvJb YIXjaLl5QCMnPYqshCMvREW9LK VsQHGnBUBhFYO0ZDEdR0gmorDn dUfqxrLmz0ycnuXmiyAoEWRhLk JkcnJcYnJkcnNcYnJkcncxMFxj lKBmXSNnMHXzMZTpYAXhTON1XO AsC1t4QZC4AQw0JYIsLtMaA3rv oWotMBPkb7akWZVvYdYhFDjhUD cezUImMfO9VSDsklYdyH01Bxyd GFDsak8zG50bcHOsTVLrsCSczL lvbiBvZiBtZXNvcmVjdHVtIChm n7EavrZxgXQqIDSijhGlsta9HW NlbGxccGFyZFxpbnRibFxjZWxs BKXdcvPubK20UfutuWPdcBNxoR suPvdrwHW0QOogCusijJ4bhGHB YSSCGmiGLniudxNhRM9TBTFKAb PDBN34UmikSlA6DxrzjZizOcsv epHxaZRxBiLpbX1Pz0EgXTCklW dqNRBaLQtcIgletNP5ILebBxpw fS6kdOJQKSHFVxcLGjueqgWlKY 3KSKNFUD4RjSH6GkDbiZD0El86 OYFuAJUrnUXgOXcjB978VPMwIV tzSVIyOvSsX0HeiOirbsTalUlb e8isxHNsw5VyHCXhB3mkWBQcBV LftBPtHVVnjRPjZVJ0L0v3xjJv OBJslPJpjLOeVZVuqQNtSHc4qr BhZGRmcjNcdHJwYWRkcjEwNVx0 mzVgHOVzOkPoG8wtreIgsLdlya Wdl3gctuVbqfXbOAGmDbHdrnui YnJkcnNcYnJkcncxMFxjbGJyZH PlHYIeSNXqESHvCSO2CRYeA7tg fmLdUoqohyMtz2daxwZrncFoKM ChvqJnhZWdnIgxkAS4x7huXHKt V2zqkXwDuWT1jKMlJNXhY9PudJ f0OWx2KLSgTkVqltSgIjZmaaIw YnJkcncxMFxjbGJyZHJsXGJyZH CmHSNwGJM7ZXXfW8dwmqWesxig pcTzm9pslfDfbiVyRMPhQwOeeg JcYnJkcnNcYnJkcncxMFxjbHZl uoFlqJZmR1bcfEMApTR3gAQuP3 h0L1fzqIngLLHpX0DutFw7BmH1 XGNsYnJkcnRcYnJkcnNcYnJkcn cxMFxjbGJyZHJsXGJyZHJzXGJy ZJU0EDStO7uiqaGnztbbcnHpl5 xicmRydzEwXGNsYnJkcmJcYnJk cnNcYnJkcncxMFxjbHZlcnRhbH KgJ4syrZOZyOK2aGGrO9h4M9ui qEs4SNVsUQToqTy2PGC9YaAeuT IaTJhettRhhMTNhU3dftAcoTIw ChjeYXlyWUYrgtFylN96IvwgM0 EgcVxbNSLnAThcyYMiCXEch5Mc S6F5MQFdYCcud4dnGXAiFTxpb7 ImMBwMLXUXDP0IBS3noEM5QWkX UEVGF9eYlTC3CtC0lHS7H545JC PxKWErsEAlOWkfL863H5PfuJ15 SCSpBYyvn6fjGODtFPgcy2GaAO dKZWCYLR1VDC2xaHM9XTlDLGOS HRosMEWwETnzfMF2a2nerDUtu1 m5SSxpVKV9bKyahCStvuflwdZl BLIjbFfktG85Lusmxh58ZMNhc0 yjWIFnvDIHhXJ1fE8usdQxlWr7 cnBhZGRmdDNcdHJwYWRkZmwzXH RycGFkZGwxMDVcdHJwYWRkZnIz XHRycGFkZHIxMDVcdHJwYWRkZm IzXGNsYnJkcnRcYnJkcnNcYnJk cncxMFxjbGJyZHJsXGJyZHJzXG HzYMV5CSDsO9zdykFkyruzwuSs b3hdqoZzkiUoVQGoHtGixaCaPs JkcnNcYnJkcncxMFxjbHZlcnRh fADyJ7qdmOCDcAV8wTOsJ3s7X8 ztoSa1XNz1BARnoCn2MEX7NKco uAYtNDL3CHLzKJIiKPIhWOG1TE DgP8oojxWrxCescbKbg5arulWu dzEwXGNsYnJkcnJcYnJkcnNcYn JkcncxMFxjbGJyZHJiXGJyZHJz RUUkELX9DRGpV6c2BTF4NWm2ZR HzTdVqI2jfeLamCCHty6hzBZEb YnUhWFBfxRf9JHTvCKksaSExIZ R6QYOfFGRmTOBvGYJ0CKNiL7cf yxWtfQxgvkInx7tvfiItgrLjRX NsYnJkcnJcYnJkcnNcYnJkcncx MFxjbGJyZHJiXGJyZHJzXGJyZH C0WDIkH9q4QTH2GQs2FPZsToWp S6vjoPmcYJRyx0wuIVOtJpDvKW nyWTjrdXJlOqJ7JPLqmnEpeB40 RncdITxrgO9bz0chOxH5uKOpUm xpSQpuZVPmmkSpaL61NnbhO5Ip sNyrYOSxUDnurAUuZXYwx4VfB4 D5WHUyUIdjs0jpIFFzYOwcc1Wn PLkJNGWQUM8AOR3mcBG0NDpIYG ECT2hRcMQoEcX3kSE5VX11GBHt PSPsqRHeXJegJ358RKNcxx9vZD BjcL6jnCR4AVUeYUtpo1shXWIp TYgwt2MnRWmARUJPEI5LEI7zyP J3AToTEEPRFNh1PKHiL3e3xAX6 o5gleIEcv8p2CZuvPCG5eMwqlO UtunkbkrOpKCYwfGbfaY38Jdrm cx61YQXuy8owHSEjbFDLkXI1nC 0mxeBzgDz7wjUgPMSfjAQzeWQr YWRkZmwzXHRycGFkZGwxMDVcdH JwYWRkZnIzXHRycGFkZHIxMDVc dHJwYWRkZmIzXGNsYnJkcnRcYn JkcnNcYnJkcncxMFxjbGJyZHJs QVLoKWBdAQLzYAN0ZISuP2uokv LelmdpmnBcs7gvpeCxabSuIGDn YnJkcmJcYnJkcnNcYnJkcncxMF qpiIIkufMwyFRiX0eslHNNxUI1 zOOwJ9s4D8vodFr9TUp7JGFcvR r2PYO9CLyemVVdLRI5GICvNVWm CASxUUI8RPKaL7pnyhWhnIrwwn Qib1jtvpOsfnZoDMGxDkGlssRj YnJkcnNcYnJkcncxMFxjbGJyZH DvJEWoUYUaBECiUEQ5CJArV8i7 GXM6LUz8LJRwExSuN1kqiUshWQ Dbc4hhFLQhVoTuWVSjnEu2KNEn KKoumGQrSJO8IFKpSCFjAZXvVW G1VGFuN0frhoArkZfuzfDbk3cn cmRydzEwXGNsYnJkcnJcYnJkcn NcYnJkcncxMFxjbGJyZHJiXGJy DRLxOSSkZOG0AJOxJ7j0NQQ8AJ s7UQDsRtLxF8tagPlzGRWsf3bo RBKeCtWmKAclKIiggCCpYnS3QA ShccPyrF00LdhtWUlcpP0yz9qv ArPrffRxAIsmO5MyrLhpEEFbVU ludGJsXGNlbGxccGFyZFxpbnRi oEjktk25QPX4d1bgaFKnCXhuKr wmyTMineH2FFtRVAAVXRlBDvGa QI9xCBmKQ9QVNUvUIvmeVITrL2 s9bPF6x4csaLUge2n0OWauHRO0 mGlrZjZRt2KgkgF6LKc2YBRpGn YntgQaqQwyfTTbo8lhqKPeDNmi KitxrGJdzmM5PNlLRJJXZMeDBz AwGA7xXWjTQ9FBYsF6JrdsNpl3 MLj2pRsjRmybbuKyoBFsMrTjrP 9ijMlmhN4dBeJpQHtnYTzwXTfa uVEhKKAnc0f9wg31DEmkzDxfR3 knwPxZTX66CUobwITvKZVuDvTa WICkaDKtVMNpR3n9ehLmTFQtLT M3VIAmwWZfLTXrL1u9psOxVNQj CIO9WLAkiEOoQYSgU1mbmXKvOV C7FJZpRNXnOVTmFWE4ENSgI3la ydOyeRtahrXru0agwsEjpsIaXN NsYnJkcnJcYnJkcnNcYnJkcncx MFxjbGJyZHJiXGJyZHJzXGJyZH Z6IAQbA0j2JCO2PAl0FINkUfKg Y9ujhKteGUOhf9yiSLYjDOU6NU asMZzcpPSoRPQiL6viusWkdHjf wqFqc3cgfqGdxyFgCWDfBpEblq xcYnJkcnNcYnJkcncxMFxjbGJy MCQhROLkSLOzMWHcPIE8AOPaM5 ovmuCjFrnvzvPrh9sqfhQxwiPr UKAfmxOptVJvxKzjtLA1q7eyWH TiC3yfwPfDoET6iWI9QIbiVNzb rYZhMzDwS1nvvePnqXkougSkm8 xicmRydzEwXGNsYnJkcmxcYnJk cnNcYnJkcncxMFxjbGJyZHJyXG MdHAZbMZCyCUN0JQCtR6dgqqZr CimrwkOdb6ooizOzglUwYQXpkk OxpHQnrEtsgYY4l7ohNLJtL9mj lPeUhMY7wXW0CIBuO2VzpOhaOI veBHvtOFTxTJdvoFIoBKD3yK3t HMHuhrB4RELijKzxxGQpMBkppn KzsAgkQNxeDENgjtUdrS65Emwj UCVmB37lV9PxmIqlaeJfiKnko1 ujzMYyb0AuJFUvZ9keXYNgJOHf sOHaIISwnGSdWEB9Q4y0asGiQU HasUPgnPAzZBPjuGFmTVh5pdCi OWQfikLlfMNjPJTvmeGyIIk5nt WeKKGtDrWxR9jocpWhlVvsvqSb s4fjugAvucBhBJDfEvOtvunjEh JkcnNcYnJkcncxMFxjbGJyZHJy NDYhGDVbXRRzWYM5DPAoI7tift MyWpacdkYzh4xyvyYtlkTzQWFv prEsgOJtiSmthFU5y7mpFMLsB2 ybeHyRjZE5yAAlELNlQ0WktVd1 RZl6TYBnUfPwryLvJwYcdiHtUm JkcncxMFxjbGJyZHJsXGJyZHJz FTLhZNV4JDLgW9dtkrVdwgmzik Xns9rsdgHdsfBfJSLxQkQixqBv YnJkcnNcYnJkcncxMFxjbHZlcn IteBQsS1vzrQNTrXQ2pSSqZ3p6 T9lncUklTCVyY1LqrWb0KdA9YX NsYnJkcnRcYnJkcnNcYnJkcncx MFxjbGJyZHJsXGJyZHJzXGJyZH K7QRYyA5ajuaTxoriuhlKbt4rr cmRydzEwXGNsYnJkcmJcYnJkcn NcYnJkcncxMFxjbHZlcnRhbHRc B9kzjOCJxCZ0lFVgS8m2O3xltL v8QATkAYUcwFz4LMG7BwAfrXTe TCroriVroAEOiZp9bAFdJWYyxb heOWO4QAXluZSyDtyzTCtqVQLp jaOtoR62JrjaE2OfdEigKUXjHG rynHMcBYHri9YtV6D7MMPpSHmj d6grDNXpJIfkr6EbXNkOVMTBYM 0GST1wwIA8STiGTURLZ7uXnMOd EzV1gAR4Pg64MFEqNHOlwKYlDH szX484Hg36YEQzfKbwW7FtlVSs QT5yCIYpBPi4mD9dPWchhNMexJ KnzXMosFOsisQjviJiDB14NVgq VjbncMO1ONozHpqsrP8fnIMVHA OOPxmOJanwubPtYG9MAVZQNP0X uIHrAzN2xIS8Gy28JQTmIQIepG JoJOxhX159HMNyXLbhKZKpLrLz S4VzuTaizgWqwOrih6luvIKhh0 JkMLMoV2mnTLLnPUArxNBsYAYv mUGkWTC7A0j2eyExSTRrrUEoiI AbCPSglMPbPAv8qyEvJJVbgfZo aTWoAUTuzxKgZRf5xnOyFSBpOv VgS5rwxkZikMuekyGit6jsamJg dzEwXGNsYnJkcmxcYnJkcnNcYn JkcncxMFxjbGJyZHJyXGJyZHJz EUGzOUY6UDAsG5bygfEeBqvakb Buq2rsvhRptgGxZLPzifJuuTHx kGdwgPK0a4ivGSZqV1fcrRpOsV Z4pSNtHNIkG9VhjTj0SBf1YFMu YnJkcnRcYnJkcnNcYnJkcncxMF xjbGJyZHJsXGJyZHJzXGJyZHJ3 QNFfK6mlahYweboicfUkm3xroi RydzEwXGNsYnJkcmJcYnJkcnNc YnJkcncxMFxjbHZlcnRhbHRcY2 dvtEWAsBM7oXVmY9e2Z5arjIud LIDrT3KttRo0CkK3BGTuLoUihv RcYnJkcnNcYnJkcncxMFxjbGJy KWIgONSrPBAxCJVhQUN7XVSyA2 ccrgErrtngmkOms6vvolFnihEd XGNsYnJkcmJcYnJkcnNcYnJkcn njLQbmoTWuxgCfeQGiL5zfsAUD hEX1bSIjH8c6F2uhcDr1TSDnFJ FmzQk8QWR1XlFtoHHuENbbnbDb cOJTrI9fsjOqiYRmeyI1LYJunL xccGFyZFxpbnRibFxjZWxsXHBh bzClbI71IpknYYngSRJ8lDusuZ 52YWRlcyBvciBhZGhlcmVzIHRv GLHwafJuGJ47WJY4ksZlsBJoOI xgBUofE24prIxqIm91ZCfmD5Ko iYasstAjzLkji2ppyRXut1GyUG PxV4gmWYGpJVXiyRMrHYNroGRk WZA8X9m3bdHoGLZsgZAatOJiTO LsrGCkUNq8ioEtTZQdkbXdjIYs EVMzokPdXGp9gbTqTDTwZmNhC5 qwhiLvcPauipYgm6aorpOmtpTb XGNsYnJkcmxcYnJkcnNcYnJkcn cxMFxjbGJyZHJyXGJyZHJzXGJy MLF4LXUzB7cttzRbKmcjqiSqk9 xicmRydzEwXGNsdmVydGFsdFxj iLH4u2suWGDdK9zlhAsAqJK4wW BzJYRyF0FnaIh4UWp8XHOtXvQk cnRcYnJkcnNcYnJkcncxMFxjbG IrFPOmWEVjWFOmWWSeWXL1KJNh N4kndfYnwdayzuHko4ksyrYmao EwXGNsYnJkcmJcYnJkcnNcYnJk dlxsHXujmJBrckAiyGBkL6oetT AZlGW2fIGdZ8m4B0vxeIlzPQLu G7XsfXo0WuR7LPZmVyFrnpCkDm JkcnNcYnJkcncxMFxjbGJyZHJs XQQwMCFzDPBvSZG9RIRkE7xkjb CjldrrnuZyc9ifjyGkooFbXBAh YnJkcmJcYnJkcnNcYnJkcncxMF xtpZKmndVevLJcF7vmiDUHeLR8 oCAvU5p7G8cbjTq8THJxTQDfyV i2GMN6DmOiiPEbAZyubkKfsUCA iJDuvYGme1GvLKreulUyiY7sUS hji9SjqWKjLVU8pJ9bfwSxqnm4 UMEzJ4KgpXexMCYwWNvebMMgPC EmmHeidVKyCJgufrEqdAihaw82 QJY6o8djdYPsNFksOfsxmQSurw E6NLvCPELEBTiACqVkLR1sKCqL X3EPRMaVCam9DREdIOs1tSd5r9 oetRLyy9l7BLybYCR6aM7kwSQg qOCptDKhAdamZClah9DaIYMhSV JglAXun7Iyu2okfOBwHZwhSqxm sYLfnaV9LOnKJFKVCFnDTrQnDN 1wJMuJM7EPEgQ8FBO1Auc1D7y4 lIiiQgzkpeWadXEfMsWamC7nlI kdeO8cIdWyJXdsVYxyBKuabMUg XLKwq7i3mh47CYxigBawX7gkqO oCJO56ZKgdhXZfRIWvCtPrLXFe aTZzNOLiF1q8mfElZXRiMOF8IB MhjPEnYAQsE4l2cbBbXXDqKTK9 EPXbdHZaEYKlE2xwvQCsVRW2RI DlMXUoINUjDKI0JZQbX2uhdfEc nSvbyzAsm1dpssGfqsWsIMAfZr JkcnJcYnJkcnNcYnJkcncxMFxj cYCyZRRsYHInVMPcCFUzXKR7WD QyJ1g3QGT2USs3RGItHpLmP8ba aTweIKTth7imOMVeRWJ4BAtmIW qtwOUbYWGnQ1geofImlNthlmTq y7rnksXhipPgUVCuIbTnmozyHb JkcnNcYnJkcncxMFxjbGJyZHJy JVEdSNGsVYMxQQX6UVRiE3zcmg MuUjkwmjWrs5pjxhFiecGyBWAy wkChbMRjeVbmdBY2j2lqQFUxF4 wzgRpBhXD8bLG5GBecHRubtYSg YxNoH8cmdfFaaHdvouLlz2fald RydzEwXGNsYnJkcmxcYnJkcnNc YnJkcncxMFxjbGJyZHJyXGJyZH TnGNVeJCC1SJFqN8rbooPeWxei jfSzo7aoohGwbxLtQIMjmwWtfI UphJlrgJV5t4ilQRAhU0ueeQxM mFA3tEW7OFLrK0ViqFucASrpWC jeWERwBDsllVWbRJ3gP0Rqm5Uv fJuuKWY6zC1vZJVsjiUaodK6wE 8sYcvzOKpgEACanoQebU07Jgkw M4SfyEjqDJDdQKnefDInIEGdr0 UsZ6P7GSGfBMzie2twDBWuINui u1JgCJnEPQMGJV2YSS0oqVS7WV sRIZBSV8vIhSP4CoO6qSw4LI90 NRRbWWLxdCHxEXfeX693Bp02AZ qsVT30tQVmZME0WSTbUHiff8od WOGzZMeet0DiNOlXPTXVZC7AUO 8muUQ1UGwSOPENUMlrXKIyMVu5 zUj5j5tdjOHwj8a7LQydIYN1vQ obtCRulbctkgZwNYYzvOzstU31 Yhuhme78YYFgg5ilXOWhlWOJyV F4qB9xhiWngKg4nhHmRHDnyXVv dHJwYWRkZmwzXHRycGFkZGwxMD VcdHJwYWRkZnIzXHRycGFkZHIx MDVcdHJwYWRkZmIzXGNsYnJkcn RcYnJkcnNcYnJkcncxMFxjbGJy DHZnVKRoBXDiNIOvMTB0NQXjH4 swzcIqfakwyzGnw8ezviWuzsBi XGNsYnJkcmJcYnJkcnNcYnJkcn roEWxjtVWxvqLepJWqP9tjvHQY uGS1uBWcB5n4C0fqxFk9OTm2UV WpfBd0KCS0DAgrmEIvNZA8XXWb UPKaCEZqZOF1OOVvY3wifqFuvT jgyrZlx4ehviOhiyAlUKGhPxQj cnJcYnJkcnNcYnJkcncxMFxjbG XlCAWlRCJrDCBuTHEkUOF3NQDv L7p4XEV8ZSd5ZZBhSzQaA2auiU ztXFQie5jePUJaRsPzSIJwmVv2 UOSjKOkahXZxVOP8ZUUiIOAyNN TnJQD1TXHeM3ocexFryAgxsyFz b4pksaSgofGlUZEgGvRaovDbXd JkcnNcYnJkcncxMFxjbGJyZHJi VHIyGHWwQXGoQSC6TVIvG9v4SF D2KZy5WLMzIkBiZ6hgxAfdFVRs c1fwXGKiGyBlSMggVWhmkLHkIo U4XTKywpSvpU34UamgZEesaKdz kJesNCMnJR2fduI5ZWGrzMwzdl DglpWak3scixxsICKttKdxiUBo ZFxpbnRibFxjZWxsXHBhcmRcaW 94UsywvIKoqIRfbWsyGtvrmOM8 LPzjCbsrwQ2wsOIKOJOUIyfUJk ojcgCgOH1YDAFEDpHOZO68Kuaz WQJ3FXc4iGahBccstxXavEBoXw YnrW7Eh7SusGTvnkTqLgxdZQav XbippLN6PUcmNyrymD3xrMXVEQ ZUUyjPMfmsnjPfVT2XONCZJL3V jHO2GlIypNd4XH86AIBvGCRwyV BeQZkzC210LKGtPJfuUHByZtRl M1QhzZvehqKkdCtnp0suhZSfj2 XzVGWuU5dxTBUdHFKtoRXiMMEo aKPlLNU2U1o9qoGjPXQmtJQwzV FeBEEgiSReBJs2stSiRFCwejSi pJWtOWNgbfMpLBd3pmPzVYCzBp LhA7xgcuWueBxexkBwu2ijdaTd dzEwXGNsYnJkcmxcYnJkcnNcYn JkcncxMFxjbGJyZHJyXGJyZHJz MXWmGVL6DUIqL7vkstBeEtlcoj Rfk4icthEnndLkSLXirbAqsQEa zThgbEV8y8zbYXTwP9icpTtMoI Z7oBGeUTDyZ6FlqKj3MLj0FSLz YnJkcnRcYnJkcnNcYnJkcncxMF xjbGJyZHJsXGJyZHJzXGJyZHJ3 AIGbZ0juzvHotmhdtzYqp0qdpw RydzEwXGNsYnJkcmJcYnJkcnNc YnJkcncxMFxjbHZlcnRhbHRcY2 twuBUHhOR0wYUxS0a6W2ewkYza KDVuV0QtkUu2FeL2SHPrOoVplq RcYnJkcnNcYnJkcncxMFxjbGJy JZUrBEMwRHToOKHbOXM7RNVjR5 dkzfKrqnrrydXae7rpvtHpnfUb XGNsYnJkcmJcYnJkcnNcYnJkcn eiDKcpcEFzthQxdULtZ1hokEMS gPC2iZZgG4v6W2qomMw9VMUdOP EioSg8OFA5FmZmiABxVWegjzIh yTDJJVIvdhX5zaBbUMrqsqEziQ 1sYbzdGVxoYYMoynIlcF86Cybz A6GqvWtqDXQbVWcyfZSdDPSqp5 UpT6U5IQOkXFsmh8txKWZiJPga t5AkVUeEGNPRQU5YSZ5maJT2BM uWJUOLE5vThVH7YnU6cWTxqBLf zWtlRmplytCpcSVjNwFzoT9Ks2 QgaWRlbnRpZmllZHtcZmllbGR7 KHoiZngquC0vvOWHRPEFFelUZq ajbeZmKD0IOKNCLS0KnLC9GfD9 fDEwfDEwfXtcZmxkcnNsdCBcJz XxqI9xqXcqoW3gMhFhANpdHOid WYcveCRkDVIyh2k8if66WKcoyJ arF4xmmVpLWE30CGhvpBBjQEBw GhVcEKLafMQrBFNsC5h0nvAtSS DzALD2LSVnmIOvSVOsG9d9roId NODwGOQ4SBNmbRQsCVSuK2ygqK DzSBK1RTFcPSAnLGJqXXN4FWPs M7czdpWmhTdbedRrf2uokoLxpc EwXGNsYnJkcnJcYnJkcnNcYnJk cncxMFxjbGJyZHJiXGJyZHJzXG SiEZC6SZObR5z1FSE4TQt9XUPx GmOwQ3rpaSllHKDpf9rbUYHnNU K4FWwjOKyfcOFbBMHlE3dvyiJx yDvqggIjj4lfzcAlvpTrZSWjOm JkcmxcYnJkcnNcYnJkcncxMFxj mXJqTBTkUQCcUDGfASUqWXL7ZZ CjD9wpwnOnRcrmbqQst3crmzXj ruHxYLXtmgBeaTSnoCdcpHE8z9 miBMUrN7vekJeIpBD7vBH0VMfe QGbyrAVlQpMyI2wlzgClyGrgpd Nik8lrqoPksaLvNAOvJhNyzasl YnJkcnNcYnJkcncxMFxjbGJyZH RzINGlYEHcIYGuPTC9LCHzN3vq tbTwIexolcIgw9epqwDfycLsUP NjweZelJRajQwjtOC9k6gdDGQz F0irvRrCaKO6tTV7GLKuK5CgsD gxMDczNVxwYXJkXGludGJsXGNm XrFOaW2yycKmjDLxvM1nPFTuo0 AyXdznUWpqRGItuoEhkQ99Mpep Y9BqTRMzjAcwtTNbBIwvhmZnuL ysxv59TJC9k4xukLIzSRzcItme yNGoiqM1QDsHWRYGRRvHThBaFU 5sYVjGC5MAZUeJVlt3SJWrRnsg JEzqAV46ANYeGZLswVAoQMrlB4 71IJtpoDRqFDBix5HsxN7cRCa3 QRYhTUxou8vsGHGaSYfeu1GkBG mLKVDDVR4UTA5khMF6BHoKBYOJ OUs8MHKnTkdeFJqfDY76ISGxRX YqgYTqIVwnO606YJJeORelVDYk ZjBhX8JmoHwexrIwxPksf3xwhR Lnu8JaPMXgJ4gjEDErABQmjPDg EOOjnTNgFGO7Y9c8wnEmMDOtdL BopWAxGAIqrVJbIJs6uzZoZZNj uxHotJOrXGQzusShDYu2vyBlIU ArVaRiX8izalDypJzrbmAho1ya cmRydzEwXGNsYnJkcmxcYnJkcn NcYnJkcncxMFxjbGJyZHJyXGJy FKEfUILsJQL9NVVvP3jafoDcIc qcpfKma0aafpIazwKrUSYiptKh yLIjxChhnKA9o5sjLAKuV6vhjV rMuYU6mRUnFFZwA5GohCq0QSe2 XGNsYnJkcnRcYnJkcnNcYnJkcn cxMFxjbGJyZHJsXGJyZHJzXGJy HAR2OKViW8pelxJxykjqelXun7 xicmRydzEwXGNsYnJkcmJcYnJk cnNcYnJkcncxMFxjbHZlcnRhbH GiE7faoMQKnGQ8xCReT0d5V0jf hOpkPGEoC1GatJl2NeL5JBJeJi JkcnRcYnJkcnNcYnJkcncxMFxj gRQrFQZiELAfBWRcOSBwZIQ9IP LeK4ggurYuboichpVck8unpoLp dzEwXGNsYnJkcmJcYnJkcnNcYn PbnotvUSzkuLUwqeMwxEUqN8yq eKQVxSI6gNDoR8v9E2jisHo9HX QyWBAoyUz6KJX6XjWljYUnVVlj ivHzxQCAfxWckW6dgwHeJVDbRC R7MxxeIGurJDKzncUblI31Funj M6UkaQbrVWVrCHaqkYIyPIAov8 PrV5S4HPSiCHova0tbCSYiWXnh h4DgEJdUZGIHDN2VMO7dgYX0TC vLCJPJQ9oMmTQ4IoOipHVexZEh mIbdSuqleuInzMKcTfQtiA7Ygx Lrwd86bqVcpdRasFFdjZRgzNR0 uLGaPOC3m8zchCBjNQsiIizkzU CbazX9LYuXYEATLNhNSrFfCI7k APjWV5OKGeK7LxkqMFP5UQB3BQ B4b7yrgFMpz7t1RQprSEF1aGyp vMBcjjpevsOuDLUubGiqxR66Jc ayql41HYZyw8gwOIYmzAKSiXE8 lX5bxkCvpNv9ziGuNXAhrXWmdB JwYWRkZmwzXHRycGFkZGwxMDVc dHJwYWRkZnIzXHRycGFkZHIxMD VcdHJwYWRkZmIzXGNsYnJkcnRc YnJkcnNcYnJkcncxMFxjbGJyZH AlIGLmSILeVMToWHC4TDYtF6rf fuKuwfzaefUpj0isdcVpwbSnBQ NsYnJkcmJcYnJkcnNcYnJkcncx BZnxhUJaslUwmPWvI2hghRRJqM N9rAHoT6r6N5uuqOu3IPk1GAAc lUz8UYB9GWfloBIqLRW3IGAmSC RnTGMrXHA8PFOhH6evleFwdMpa rcByx5axvwUtmlJwRFUdCkVhbf JcYnJkcnNcYnJkcncxMFxjbGJy FPAoBVGrNJZkBXJlTSK4FIHoO0 w9XLZ1LTo1HGGvBuMiS2exkQwc ZXSwu1wsVKZtBdIaTMDujZd8UC RiDGdsaWFkBNQ0DQJwDYTiKSAb BST8BTNbL5fgozFhgFsxkeVin3 xicmRydzEwXGNsYnJkcnJcYnJk cnNcYnJkcncxMFxjbGJyZHJiXG JbNUUjQLNaNLA1DGMjZ5k0WEQ9 JKf6RDZrEqCoY7zzwIrgRIYji2 dpZHRoNjQwMVxjZWxseDEwNzM1 AYPbliKnfC04LlztFKJoH4geti ciY8YlvCjfXRWnXIzcuEEfMWSm bGxccGFyZFxpbnRibFxjZWxsXG jwbJLbRMWag1b2ag61APvzwNes N3fjeQnCGR96RIodiRCvYUTzSi VaMTPdiDWoFYByZ5p1xjYpUAQy LXS8TQKifAZrLMTvD7d8ldKoWM DlMPW0KVYkvCIhKZSgT4ccyEBf VYA8KFGcLIFpMYDsYQQ7ZGErN8 yrreHlrKvzcsIom8nrueYzjaHw XGNsYnJkcnJcYnJkcnNcYnJkcn cxMFxjbGJyZHJiXGJyZHJzXGJy TJQ3MDNlG7a9XIA6UYu3BRHcNr VfF6exoNlpFSQts4yuPEZnVRI3 UYniYCmltQLiNXCfP3ithaMltO yxcoTrw0eupiLqncXjRKJwVvOg cmxcYnJkcnNcYnJkcncxMFxjbG VbNEGnAOZzGZTeBFFpKEP1ZSWs X7xzggKwLdixjsBgu0wmmlXddm CzDRVsppPdxKLpxEjfoYH1t3du TUPxI4etuVfLmKI5rCV8JGqkUH uzxNGaAtHhV8crgzJmzEsoilKx d0wjgoZjfsGfJRPvGcTketbuWt JkcnNcYnJkcncxMFxjbGJyZHJy SKUqIZQvWNOsVVV7EKSmA4bmww FjZydzowLfw8vguzKzokAoMKYh soShaGAemMfrrRU8m7qzKQAmK5 bahCeXcIR8jPO9JSXzY8EdrAov MDczNVxwYXJkXGludGJsICAgIC ASMFGvgB4as5YuhNIdDSFebeXu loAvk8w6UIKxBYQexI6cpTB4YF NlbGxccGFyZFxpbnRibFxjZWxs YHQwjqGheY27DdkinZQuyGGnhR dvVdzsbBK7JLrtFfaiyJ1npTCQ TTLDLjgYHezwyxNoMH8ZGBCXZt TGUE08VRQ1PBM2ARI2SWG1y3tt yCIlx4k9IOjvMLT2sYLnhLXmTG YgoI3fAD3dW2M9hGIoCFKecmJt myQmk7m9IYTkQDBlgN6fcID8LR AsECsaz4oaYCYvZYfer8UnBYpZ WJTZOZ0HAQ5zkEY8NAoDZAGLJC c4UKN4JxjtB5hdZ022JFBcBVEg yLVmNNusT316DHUlCVbfJSRxPt UmR7OfnDsizzHoeMqwm9dovPYl j4PjKKYrI1qlKATeLWRlnTJkGJ WepVQaUXS6W9m5elBiDOSquYIq aOQsXGOhmADlSFm1vpJzQNEmru ZipHIjONGytsBzQSq9boOqCALz SrUwF3flwiGhwXwbuxWrr5cxvh RydzEwXGNsYnJkcmxcYnJkcnNc YnJkcncxMFxjbGJyZHJyXGJyZH EzZGRzBJS3SBOrW8twbuFbRumf fkKxc9lazrIkuoGtCRTzfpCsyE CkxJayrPF7q3ogUUDzH7lkjDiT uPG5lDFoGHImW5SczYd6CNs4EN NsYnJkcnRcYnJkcnNcYnJkcncx MFxjbGJyZHJsXGJyZHJzXGJyZH U6HGCcQ9xrzlTqbkwamfPxa2er cmRydzEwXGNsYnJkcmJcYnJkcn NcYnJkcncxMFxjbHZlcnRhbHRc I8mwiZTFhGI7mVYkI9f1A6bveG mdZBOaE1OofPs2AlC7QHUtWdYz cnRcYnJkcnNcYnJkcncxMFxjbG NvIWAuFKNwTVZuWPYxQYE2NKDp U2xemsBnbiurzoEdd0hyfvUdkc EwXGNsYnJkcmJcYnJkcnNcYnJk uiaiSCgiqROhuiUkbDCtT7pqcV SZxKM9uNNnN9x6M3sioNe6PSYz LBDjfBa8OPP5UpVlrKFgNIarqo UtwTUmKCZvALHjM7bbVLN3JZK1 cdPto6Rbku3kFNquxkOdkQRiDA A3iY5yCgvzJJytKVPxecOqzG01 KgsuP7AakOshXTXkSZmlbLZaKM Buk6TlR0T8YZEuLBlct9ngZIMh IWmmi0TyTXbSNWOAYH3OAK2cqT C6OVjJDVXYN9eShUWhUxOluKJ9 nYE4jBfpRzntqqDkuWYjCvAauC 1OmDfwfBYyK0aybuTqXFblpDs3 LKYhv6DutIdwyZ1gfaLrFRRcbJ JzoVIkvMOiDeVbhsKsSO61U75y YMzqQ1MlS1dqr22fSSWoGQHuz0 zbH8IuLJLpGWedvIvlx3wgr9ob gLCfPSwwCrozcOFryrK4UNtFQE KGASrXTiObUP8gQOvBE1GGFrJ4 TJE6STM8OKQ6ANC6o8pkoGAtf6 e5PAufKYJ9nTxkoTLngipmpyUi ZYHpuMhcuM82Bfkxac28DEGch0 teYXTlrOSVjHK9oE9aevQcxRj4 cnBhZGRmdDNcdHJwYWRkZmwzXH RycGFkZGwxMDVcdHJwYWRkZnIz XHRycGFkZHIxMDVcdHJwYWRkZm IzXGNsYnJkcnRcYnJkcnNcYnJk cncxMFxjbGJyZHJsXGJyZHJzXG ZdOCE8OKDiP2antdBydyflveZs d0jihwOmwpNuLAMhQzVyaqAlLd JkcnNcYnJkcncxMFxjbHZlcnRh cBUcW9tuoHEMnXG0uDRzE9e2H2 cqhJy5AZv1MEQsjIe8YQO4YXuk zZQmIJS0HSUoALOzCRZxQHO0IK TmP8rzkiHpfFpfrbStm9yffhZy dzEwXGNsYnJkcnJcYnJkcnNcYn JkcncxMFxjbGJyZHJiXGJyZHJz DULeVKF7WPWhC3x3ZWW5IIl2HU HtUcUjI2jwgZtgGORjh1tsZGRe YhPdXSBauJd9AWYrBOgvnCGcZK R1GCGdCAZbGIKbAFI9MXStP3zi skCjcRoxsyUkn3imnzKrmhBjKD NsYnJkcnJcYnJkcnNcYnJkcncx MFxjbGJyZHJiXGJyZHJzXGJyZH B2HGUiJ8a8ZKZ5RQt6NFWjVrZp F1aacMxlECKfw2kvKIFdArWuGH qmOQexhJMhEdY4XHYuheLvbG36 IsfzAsBgqR6mTFooiBbojTtlsw 6dNNL3BALwjWuknTLlGKwwdiGe vEvjOLjxSANyndWhxO52SgbkZ8 WktWtcycRrtAewz8dhyEPrw3Vw VBMoT5zmDITxVMWdtVJeMLMooA MeJTB3C8n1kwQdPWIztEDoiEEm SMJkrOIjUHy3yfHtWCBhsrIhqS ZgTOSedaUjROn7tjCaIKJuBzIe L3wbgrVnaBnecyUet2ogngKfwy EwXGNsYnJkcmxcYnJkcnNcYnJk cncxMFxjbGJyZHJyXGJyZHJzXG IlSPH3FJIhB4ecvsKeQpmcelPa k9kttxXaczMqPEPjvjSktSFnnJ mxnAM3k8mpHEEnS0hyfTtXuBK0 sMJdIYEbY3NfzMh1VMl0EHLjIk JkcnRcYnJkcnNcYnJkcncxMFxj nTQvSXCkCFCcQRFgPJQtBHG5OO BoO0tbgsWhkrkbaaQri4arbhVo dzEwXGNsYnJkcmJcYnJkcnNcYn TlmjblPFhjuYEnelTjkARvP4uw nMFKdQT1fCZcE2j4A0syoQqyHX SxK4DymMq1FbJ7PKUxHeObtbLi YnJkcnNcYnJkcncxMFxjbGJyZH BsZKOoCMSpKGOjKCG4HCLrU5nv pxGimjavjpUab9kvvfWtifHjXY NsYnJkcmJcYnJkcnNcYnJkcncx EEyedXSsydYxjFPdI7hwyTIRmZ T1wMVrQ5c9N8hleVb1TJXeLGFm uYo7YRQ4RrYwdPTbBZtezgPczY TyFNAtXdUzjB1rDBlukXqdbArf ua6kVRTipWT7aDW6FGEytZbhtA FyZFxpbnRibFxjZWxsXHBhcmRc rV13VzriqBPwbMFrnYfmAvfzyI Z5YIfsGryesL2pyBNGDROCOgxN GmiuypUkZQ2KCROMSlNLXD81Pm xgMXC9BIV3QUK0b3kfoYFry5w8 WTpzQTK5hHL7zH8eRKLkOXZank YrrZ1bmaBjbA1vZRdtxObrmKjo pi6zDFbxRGL1SBUiZYnrf5pfUH BlZZfox6TbUJiTIEIGOG5TGS9q tBK2YMyHWTRPJOufVNB0XopoQG rgWL44MSNdHNXjyZKqYSicO196 ZLHqNKdwMCJmPgWsQ9FszXhcsz VpnQzai1pvpWCub8OlVZHlA0tv JYNyNVRqqEGqBOJhnHQhWCD6O0 x5srCpQMEhvCRysVIvJYAmqNMa LZl9cxAmKYMzwkMypGIqYFSmrd PhARt3paLbZCEoFuShE1uxkeEf vQwplqGqc8cejlZpyoBpLPKyHz JkcmxcYnJkcnNcYnJkcncxMFxj jMQpWJPjBBNkWGJlPJHaCCA3TE DlB1ijxvYhYcjtqzLvt8fixeDu qvQqZDNjurReiDFrfVvbiMB7c1 hbLWStY8opaChGjIA0xKGoBROr Z6DxwBu4KTz5TTFfLsVpftKnIg JkcnNcYnJkcncxMFxjbGJyZHJs VKOaASLpHGRhMZM2WWZlE2pusm BxmsyqheMxg7ujtyXqibYkVLMm YnJkcmJcYnJkcnNcYnJkcncxMF jitOYxzsGdnODbI9imwYTJmRK1 aUVxY6i6Z2yleLcxKYRiT5QyeY b3RhF0QIWsQrGtycWkHqPqnnWj YnJkcncxMFxjbGJyZHJsXGJyZH ScBELdWAN1JZWqB1xyeiVhjxcn muRgk1kxzkThruAyJINrBkJdze JcYnJkcnNcYnJkcncxMFxjbHZl xyFipLCfF5vcgYUGeRO1mBJzP4 p4P7cbiOj8EBCtIBYivQv1ZBV9 MzVccGFyZFxpbnRibCAgICAgTn KmUdArUH5zRDn3uZLvNT7wHHWz AUwfwUfgmERjr9W0MXUivXxnfX FyZFxpbnRibFxjZWxsXHBhcmRc nS76ImazJptiRIwhZNletGJsSR Kkw8o9sz52UWnloMavJ0kqkOqC SD00XBiubLRoZIIcKcKbGPNxvI SpMHHoS6o4rxBfSTOkYPE6AGOn bOHqUOSgT0l1ciSvPXRnVAF9XU XorLVsMCPeD0eqcDKcSCA3DZXz MXHeTCTcIRY7PASkQ9livzLclQ vxfuOzb3zyohGegvNrZVCaWiNo cnJcYnJkcnNcYnJkcncxMFxjbG YqTQRcVSClHIKyQXDsXAQ2AUPz Z4d5FZT3LJf0VWKjHlQxF3ppxZ owKPWvz8uhOMFjPJL9AZjvOOxc zBZqQFRpC8ufcoRxyQgmmeOjl7 xicmRydzEwXGNsYnJkcmxcYnJk cnNcYnJkcncxMFxjbGJyZHJyXG BzQBTqDGVeTWL9DUPnB5csupEc OvwyvuWkv8ckanAeleKlZZPlil JziMJlzXiavUL1m1ggFPRbT5ha fFbEwKG6wAT0AMkxCGyupHNxAg EhK8sgwkCnhKhgjhJbz0ymklYb dzEwXGNsYnJkcmxcYnJkcnNcYn JkcncxMFxjbGJyZHJyXGJyZHJz CIRiHPA3IATtX3nbbuNdLxlrmt Hsf1dvbmSnkcEpJRBobhTvqMHt nYiliNQ5o4dzETTsU2qejWiJaS I1bEP2ZTEbM6IpqGfaPAvkQQca XKPbEUtlwUMoXHWpTBVPgZ7hST Byw0JhwYbisAqjdt1vFTUjAQiq iMjqYUT1KDMaoSbywETcTYyzgp FajTyqZThcNKZrhaPboD54Qjho GwFjO0HmwPvapgPjvPeep6bftN Tku9GnHVMmQ1xoSCWnETEerTMd KUGpwPYpNDF8O9m3rkOyMNDhlC HkuBDiJIPbxFDeLJg2zdZnTRFh uyLskJZmRTDubqCuLSk1lzGoCX VaRqAcV1swdpJpcMzgpiTtg1jm cmRydzEwXGNsYnJkcmxcYnJkcn NcYnJkcncxMFxjbGJyZHJyXGJy YHEbVVVrUHS1HYKcC9wctkEmKm gugnTad1zlhuVaylTgYYMxqaWy yUMciRjqpBH5g0kqUIAcW5rdvB tLeLP1iYRgHIEaK4QxpDv8JNe1 XGNsYnJkcnRcYnJkcnNcYnJkcn cxMFxjbGJyZHJsXGJyZHJzXGJy FPV7WSWmF7yfnzAhrkhkimHkn6 xicmRydzEwXGNsYnJkcmJcYnJk cnNcYnJkcncxMFxjbHZlcnRhbH IpP4dziBTFlRB5jWBfI5m9M4ct yPkgQWSbB1OndDk1OgJ8KDUuBu JkcnRcYnJkcnNcYnJkcncxMFxj cRKwHJXhNGRbRZAwWDLcJEY0HT LjA8qtdlQzxxayxfQcf2hakgKe dzEwXGNsYnJkcmJcYnJkcnNcYn CvwvhqDLaxvBTqrtZtcDFrK3pl rWLHoOT2sOJkI4d2T9ijwOe1WG MqDXTavRj2TMR7BgKjbBInLYmf zqIlzGQGxR8uxwWnFVQwm1i5tt hcD7JajLmqUWStUBsjcGYeFEZe cBdlaILaZDlignFjlDsobp43QU U5c5kwfZXuNXekEyfflQZlcnL6 DKoMZRXMWUiXJeRgKG7eMGeWC0 WCFLfTIdqtVZH1JIwbUjeqRa95 FOIoRHNooTXqGTqyG737SWZgu9 ExmHHiS060xiCxRVMdxRMnyAXq uLL0FDKeMQsfz6mwKWSiJNpkx6 XgACxKUBZSVB8NDP2fjWD4R6nO LWGFS7eFvEG2nXmoLlmygpExpH UmGrGcnR5qa3gtqBLdQPglOkfz kMPjijO6MAePTTKMIAmCXdQsKU 7uZCiSPRKRHiO3ULm0d1mdoOPp f9c5IJfbTHB2hDimtRMcsiqxxg 62VHG3QYGlKhHiYVtmPoqrzPL2 TNutAcgweA2hnUYBWQQHXzaYAb xjjzWaWA0DEOZAHA1IiBY6QnI0 zOC0aQU5qBeqGhjdqzKqcWGyAf NlaZ2tfLlrmG4fNsJjFDpaKEwe KNrctOPiSIMrw4r9pw81OEnjbX vtU6odxDxOYE38IVpqmPJvVXEj PjRbTGNwuRRhTXYuC4o0poGmKM DoHIB9NXRmsULrUWVqH4o8pzGm ZWIkUOU7FGWrdSZlOQWeQ3wgpP QmLVL2HLCoAMFzDZKzCLJ2KRFh S6vqpoQpdZfattCry7zjdxZnvf EwXGNsYnJkcnJcYnJkcnNcYnJk cncxMFxjbGJyZHJiXGJyZHJzXG SwOYH2LHAtG7p4OLA4OWb7NZBr PnTgQ2qoeCfrCNNiv7qcGUEySF I8QCabGYeppKHzATEgZ2xzkkSc kLytqaElu4wohlKygoOjMOJoSl JkcmxcYnJkcnNcYnJkcncxMFxj hTVfOGYjYWSxUUTuHXUyPDR2ZH IcX6kpiwVwRigldnNcj9pxvgDz nzKpXEWappFdfVZvvYhlaXD0m2 rlMQBbX6ebzRcYfNT1hFD4FEfw TDdjfCDhRyFuI9ububRkeIjezn Qgc4jnfzTqmkInCKNbDtYvaway YnJkcnNcYnJkcncxMFxjbGJyZH UcCCGmRXMtGGNeOPG2YSLdK1ik ksCoAuyxlwMml3fmooPazlCtMY PouhZlzFUpsXkclXD6f1giYVHe C4ybhQsCcHQ7qMS1BMDoT2FetB gxMDczNVxwYXJkXGludGJsIERp j0HxaxBoq8q0MAjbHFOvthFziH KiATzqN5WmpTewCJRtNFxwuMUg XGNlbGxccGFyZFxpbnRibFxwcm 34PAN5n0tbsRHzMFbxNokfsGGi utZ7TXfMHWYZCKuSCwRlEF7sNV oUX6JWHKwQCtz7FPj4MReoSCcl FM29YCIcTJDipITsUXiyW648VT i7SHQ1PXBrVCmul8zkOGBgWSuf m2BrMOsIOUIPKG6RIO5zzKZ1ZY dLJUURRQw1KJc7RReeUHctBV03 YCQdEHKdbZEjZRvwM149ZAIwDN ljFYKyLhTyF1QduFkkejNqhVmh s6xelHPdv3XvLQWcE1dxJTAaYQ JdfBSgCKXkhJPjDVF7U7x7xrVz JWRleUJajERmIBBizEFpYKt7ln BhZGRmcjNcdHJwYWRkcjEwNVx0 nsOhLJRnVaKgA3tqjmYotGaozr Rfm9ytmcVoxnHuOJTjSoTzzbjm YnJkcnNcYnJkcncxMFxjbGJyZH RoFURaODBwOZKiAII8XYNfI3nj twExGmuethQqx9exyxEsxzSaQB GnveWjpRLdkHjcwMK0e9vvLGTi J1lqnDiLbNS9gIFlDQGlQ6WwdU t1HVk9NQXvZiFqebZdPnFitaIb YnJkcncxMFxjbGJyZHJsXGJyZH AxKWVlMJD5XWCsJ9muyePyllat wwKkq4orndCrgeUdLSWuXiRsiw JcYnJkcnNcYnJkcncxMFxjbHZl neTjjFEdP7qbmYVJeVP1tPKvL3 b8O9ewcHdxFXUaF9MtcBd6GuQ0 XGNsYnJkcnRcYnJkcnNcYnJkcn cxMFxjbGJyZHJsXGJyZHJzXGJy GBH7LJIqE8snbcYiyvuvqpKgk7 xicmRydzEwXGNsYnJkcmJcYnJk cnNcYnJkcncxMFxjbHZlcnRhbH UkP5cgzOVYtRL9dQYkC9t1R0el cIe2SXAhNBZuwSf8COI0IzXtlM WhPSnskcUofSabSACMC5PvJTNy HXKuzXWng66pnWN2bP9af6qcOa AhkDNoSAymL1VfbXpyABMoYTgi dGJsXGIwXGNlbGxccGFyZFxpbn NhmRi0nPLpkUicYHZuYuTDk5Ep VvafCKXItEWrq0ovlYTbuZbbnc mwPGUnw9ChB3J4CORzHAwpy2up IQOhMYohr4JxXBdZTPCAVU1MUJ 4hoEN5EFyAYBWNF5gPsDU7NEyw tHC5mKV9fBhxAhdshrUvuDMwDy AsiC2Ry1XnMNGlsXaiWUPwMPsp PghvcQZ5ZNbdIycmrW8pgLQDIM MJKogEXdvblyYtLZ3TBKRFMJ4S tXY1IPsgnOO3fGX9hUhsQlvmth VatXPeAiOdlG6vpGbvgM3wZjwv esRxNCGlpjlrp5xeHAH7nLLfbz HxWDnzwi42IIN1t7pabHOvSXmn PlfyoEDaziA0XIyTDNZEQLaZPz VjWF8dIAnKM7RWLIaZTnpyDwG1 HukgKRmgFH42AUNzMGJqvRNpMD rrK038TIO9LMFcFFgbv8qhHVLv AHmcc5HaXChHXVDZBD0LDY4yeO F3AKxMETMMTQvnKzT8DindOMes AB99QGBgIDIrwCPzCLllK231BL OlKHaqRTOxAlDgROnaXHSowC2c iHEnjQZxgEytGskyeWT1AQpsBw cdlH2riBCCDHBNHorOSksaxhGp WW9XFINXNdEXNS59EhOmWCp2Sg U4ZuD1e4mefZQva4d3JIbjKMW8 uLXwa8cbqEBuCEmxSgxbzYXdfj S4TThBLPXDQTxYFtIfYQ0uYBhH O4IZCtS8TeBtKTm6FgW6NvH4i1 qfrPKff4x5GMtcBSE6iLvuqVVn fsruQNGoFyMeRGohHUQncO2kbN LziUUrdNtaYgjygWS0RZhvRbta hG0rxKHMHCEPKtpKRmmosiNdFM 1LKHAGXqDFFP84CNM1KIN7RgU7 QtS1q0qywVQxr9v1SAehWHH9aW Pfs1mviMPjGZknWljwuUBtgeS2 JZwHDPNSRPyTZeOzJP2lYCoIB9 FJEfO6POP4QHA6KrV1ZcM1y5kr gMJdn5x7NJigNSW0dHyhwYOjfj xiXGZzMjAgIFxjZWxsXGludGJs JCKik1l3ur86PCfcwIbwY9qvnY yZGX79HDqkoIVmjBNfe6w4wuFi ZGRmdDNcdHJwYWRkZmwzXHRycG FkZGwxMDVcdHJwYWRkZnIzXHRy cGFkZHIxMDVcdHJwYWRkZmIzXG NsYnJkcnRcYnJkcnNcYnJkcncx MFxjbGJyZHJsXGJyZHJzXGJyZH T7CABuD5lgxdKnajbsogKeq8ti cmRydzEwXGNsYnJkcmJcYnJkcn NcYnJkcncxMFxjbHZlcnRhbHRc J8sjwYYIhOS1lNXbL7b6N1rkxP u7SLs9LQWljIc3GNU9FCnvhDEr ENQ7JRWzQJMjFEDdKGW4VCYoQ5 xkweKlmWpmtsUkn1futoPoltLr XGNsYnJkcnJcYnJkcnNcYnJkcn cxMFxjbGJyZHJiXGJyZHJzXGJy PMF4VHAaG2d6KHB8TNo9XJRyXp AmZ1qrfApfBWBxt1nnCOHvNkDg RKNlmGt3OVTtHNplgYMxPQN6TD SrYMUcACBgKEI8GZAiC2jocqWv mCthunHuo4pmbuScmiUrAIEmMx JkcnJcYnJkcnNcYnJkcncxMFxj pYNrCAHaDWPnQDGbRRSmDCO2MH RxG7r3PFR4KGh7PITgZkWsL1jv dDwtWMDja8foJZXjJuVhZCdcED gvvHTgPfJ6TIZlfxDpkJ76Qllq TfWsYI2CKFR0zMLdZSMmQMSnae Sovj6hDJCwvhIplYTqFO85MLRk l7ZiMUNtxEcxpPBuNHjsxqUyqG aeBZglQEKrfvArgI62Rxtda2uz U0DkeGZdQD7LVRY5IXasqYQidP Fcfj93WOthMOC0aNJdo6Tgm61j BQZommSTK4pbPyMLvrUrE2RwzW QziXMbdnOscRInENKmoU1mWjxd JSVlYLRYSzdoHB28RWH8MNPpn4 PmdW2hGMwvspFyb0usfg1rrLZo NQEEGjP8DOkqlYIqcFZdfc87GQ jfWHY9rFChp6Usm44qDFWckSaw gT38Xcspug34DSApcqHxnGDaRC OiOV1xBZdfdo32NVP3s5mlnGSw GCgnRjagrORtlsQ5LSxAJHFBUR iRBqOjIW4pMJgDT1ATHVbMDfoq HCE0TFgiG3ydA314MSCuEGRykP ZjLTdhV004WDYfvTEIXEEzTUXg iCPldITdyXJ5JPDpVOanu1shMS QnJNeyi6KxSEyZFSSCGZ3WAZ3x fNE2C8bGJXBAI9tMaMH8oOtjEf wtbwZvhMSfHvKbaR6CkGMvkuqf DogohZG4BBbaKuhtzG5mnBDZWZ DCUqzTZchhjmSdGQ7TVHiZZV6Z sZX5sKatVcfwxcNpiVJhDuIcmU 8zxViqcG2uyPQtbYCynKtsANXz FaAeKKJakH7aw0i4c8pgvAWzVJ muUurymWXgwxW6RIxJFDGHDOuE PwWmWD6wMFcWM4IZTvW8JfQxGY F8ZlZ0AwJ8y8zsoWHpb7j0BWxr ZBO7oOoscNKgbhcuDHNfByVlaV FyXGxpNzIwXGxpbjcyMFxiMCBB LFDsi5OkiaKblo6sVIkrtM9xfX lvrS5mmSGfbXn2HKFcqvAqf1Qn hcLaz9u2jPMmCJLml9UlsIhzGU QcsK9unZGoyDFgmKDahI7oeARm CYslFGteyK3mAIZjtgtxDHBpYT QVf0bmwxvplhwmqAHmvXCcdXDn mKNbxL1fxGztgPFvGCalHsHaQS fbgcmlWOwjUDDOgrVpa2j2LZYx j5CqctF8DIc6TWWyIvPkrlZdfP jclIMsBNQoSN8gD2RvU8fte57x LuVtM6HtDFL1gx1dpXitSGDsnS 8fgT9kzVJvCMQrwhAjdGBwUENp X75ZFmQTJCMOC11FBDKYNOTHU4 MDO0eKQHSmWjQ2tUA5XL2xIXY1 OQjcFLAnYbofRvV1Ir8uNiPwBj E6yXV4MJ1fGORfQ9e6TKNlBAK3 NPp3Ll0nVjFrAuD6cNf0IV4sZQ CpZQm8ZLRkAjkvVBU2HD0zPyV0 IhJ1rJVmFDKyICA9SeO9SQK8G8 5kHQV9NainAz5aRuWbEtNvmAAa KHDuLKR4YUC3MNJ0SK1nANK9Xy rpCJ1lWnU2OaF6gIL6JEG1SxV6 EpAcYyE4yOF0CMVhCPwbIBI8GU b8E69oOqZ0OcglNF85DvHvVKe1 qLPrDJWdIBL6TAI1YfL6WM2kCM V1BQkdVg0xTsr2TkK4NLPTQTVW OWdMVJ2ONVXWPSFLOC8PBlYdF3 lMRENBUkRfTUVUQURBVEFfQkVH SA5hFQdnhuClmBU5ECxUaRUvgj pTSCJSKLRUF23PWWTHXIEQW7XW IMFCERXJBGoSUJVLGf4WYHFLDU EZTO0AFLnVNmCePIdoyhN5FIZ4 AbqzfGIjm2CuYhQ3GixvNdGdqW Hjo5ApLkziFIEcHQh6AVr4P6F9 COh9DBQkY5n1QOa3E9M2EbF7Pt I6PZ41HLokGeAeSwRuTrR3JJ52 KDwzVgNzKaUlZpP4XX90DSglOd V1EkpgDrFfeJoqs8JbELN0Gvvz JUUxsDWpPWeiFpFuRfA3LdD4FJ 3uCJx6B1VqM4D8BPW6ZjZgeZRq XPbzKcBmXyQ3OfTmOR7yB4x6V6 MhB7X7UCF3WNLkiSG2TRfcVnM0 KjTdAbCtZJ9lLMi7D7MtWOneYR C1Ulo8OKOqo2CyEKK1TsvuIXVw rNB2GGnsXiCkXnHaIjZ8JB7qRK z3VPN7QZyyOEPrhEPkWTupMrD9 JpQdLKy7WM0bZKq4W1NfMuyyNc T2DEu1KvLeu8KuYrL6SCS7CGRa yYSzGQdLQJTiovSyEuC7JeN2NB 6bUOjIC9ZMI4tYBDWxUJSLQIKQ YOZzFG9KTWvSPU0QEYXjRHAOVP IZWEYlNkQDIX6yTJhYSE7WRSIc YNBURPCKTNSfCN4GCHAXHN4WCY BTNXARD66VLLPNIIRAE8BVQ9bK PEHLDNMVBxHZQjICXP5SRVGGHK HGTG9TTsR5 [facility] Work Phone: Pathology report gross observation Narrative y2ogrDZuBNSqrHXhOWRwDXenty BfQTNqcXPeV5ScaycnTOayTL8x YX4xlHxouBLhwXAmQVDwXfTya4 ntf631sSHgg9pvRXSEyvulnYm9 jNkgC57kd8E1RqlpW7suWAWwIF snVRQaMSpueBRcQJq4MVVhjYHh vtWgUiXaJRQsoQNddWE2IARaJE 7uwdnoSOrtHMlsVCZtldE4WOJp uXZjD4MfTVVgNQ7hcirbIQQ5QR mzNKWjJZJ4OyTrXNZol7Mbpgb9 FeTsbVx7y0yeAROvDPViwMktj1 hjVJG1NYEtqENmW8sryL8lAAXp RP8bqxbbi5sgILeaZTyoWZZwjY U3lwK7JDFejDCnX3CgoS5gLNWi ITHxmfRjfIxzmW0qKnMaLZoqPi TcCA9yRTCkQ3XnysPvGJPkVTDz IGxhYmVsZWQgImxpdmVyIiBpcy StFLCtclElk42uf2TmQmLck24d a14aiDX2jKSfiWGxc6yoF3kquA Nks1ArDQRpZX72YNggBU89TMfb DS33BSPxXwIqLRgoNA32tNZaMK Y1dzFwF9OgbKBlwJ9tIGJmGvv3 XT0oVWZzZAMtcSBwvS7pukWyss KoIAZ4kS0cBXYdYK3tKYKcwWLb dBxyy4RimNj6mPYiXPcbMASaSx koD5uhAEPryxeqRTJoGb2nHYIk Z0ApoaGeMIFwCOXwQQulAeJmUN QyOuJpcx9vejWyOBxiHFYeOZSo vPupfSMmk6abltniyYCcZB76WE X6TGQhxtSrrL7yaIswmvKpZbIy wPBeoHWjl8zpeYVbaSLgUUIekR rvlUPcPR7xE36rYDY0j165CPtx rCKlDNOdjbFzb5KjFH0iPKXknW 8awFicjtNjRfY0UJGobZ4zuPSq vLS9vUAdOR47IHOkXRxrXWrwsa l1iPrfHo68SGOyYBgkDKTbZZ9i dGVyKSBhbmQgcHJveGltYWwgY2 6ie74jWHReUKUxBLudDTktuts3 aCwgNCBjbSBpbiBkaWFtZXRlci bdBWDUo0QbXga8MSD6lSYgNJJn aqWnaVLoLMImp7KejUDqmCCjYi EydNIhyJEjv6exmKF6dOemgUVk KQRerQWrbpC2BIXjBSnhTPscqd a0tPXgmmZbTeHhsIBbfyAcsTMb EPNkivV2hOedwTEiedGeGWaffa HuxAC7svB3fWZrL7BksD7yGQJQ dUTguVZykSlwISbwiCWwM2dvTZ ekFSTjORMuFABfmoLig4WaqZt7 tNQgUMrtrB1kWxbtX6vqMgSvKS FQdWWlIRoyvUOuSH8nxejuvfXw ozOhgEQ6LKDxTH9tDMW8Wv2xfL GsXATyfoOhpW9hzqXAAb5pMPRw BANgSIHheE8xLERje35rhKtkRI SrwFQkORBuj9HwsFVphQOnIcB0 yWPcd76pvKyxHl10OWbxZECiZJ JhJXAqOVXagxOzb0GgtOp0lVWj USlfHZUww9ScheRIQeRlcvDpVf KiJICVzBOtD8AmOCdpgYLomrNm chWvj0BaqEEtDKJugVBwpWtvHA VhnEiqSQLwoWJulu0bTVZsTDCl dJ1oHUR9RL9wl1EpaZLdeJLszX AiF7ngHoZnDDdxJPZnt5Kmh0Re xCVfUH70ZSGcAnCmUKDrvF6jaC Jeu8okaxErVELuXCNkqIDlzFQ4 AOUmYkqaK4cfVdLgPSSTb0HsLc a0IFPtzuZkaSBpzcEgnUTsrfYz z3SnaDYukkGyKwcwYP2wECMbNZ JiJHwiMKKjB14uErvkCQ36TCYf ta3zBPxacPVra4BsrB6aSLMzt5 1lVCOhAYRhIZKrlROmNMAgx2Hm cD8elViaCWDsLVYvt2rxxbFreO dtTZDcD66gvgGga3Ymg76xqXvk Uw68HVebtZYyLKRsRSKhUL2oIA YlxZZsxVFunG7jGXPyNss8DY0f RJUawNKdm1UutFD7fBMvLOMkV4 Wzl43kRO2gXVFubN5wWWkdsMdl j7Lrd8DzoNLtsrYjbHHphFVqsA GefLC4cB3qdlJ4eANqMRQjoXTx qF3sFKYrZEQiRDj8yS9aENilv0 2tmFebIf05AUryGRWcBXC1Ak8e iNDpWQZpbiLrwV1cl9JrMlBqEK 2gIQV2IhXhOCynJAOaJ8GjOE6x s9KySNVwKBGhwjC1afAvkxKzUN TsrT98tuF0kABuGIJ1AMIaJDLq m3IekQWcdFLlZwPbjRFqtABrx1 esnQTmhiVgbA1iq2tduFyzbF30 a8u5HEWfcFXmbQYsy3BzaFMkgE GcNXYpPwHrJ6QruVaccdIsa1Es pTcbAFF0aU7yYKahiInwmAjrKS 54W86uJOfbd9OeXvMhEDLyVfD7 pUXvLDExAFDvngBlh60caZbtHn 64YDvuZKXzLDV3Ry4huMKgYJVc fD9fa7MxLitfEG3nIRT3AmPrAC zrHCAntP1iSSljVMHePT8lk9Bc dkMwZdYfE1g6hYzoVCOyFBVxBC U5cGsuANNgRGQocqQspR4apOle URctPB7xPCBgpUX1UIl7ISsxtN hlcmUgaXMgYSByYWlzZWQsIGFu diZtSRPcPCzrwU5gyarsN9wcCN 9lw9JhcXIdrA6pXVnuvBOxHA1b YAX0zsYaIWLbRJGzSAprEZgmBP U0ZFL9CNZbaVBvu1rxsx3pLGPn rDXrCEOzEDDkrpU7vqRmflAzTZ YegP30sqOksbGxfYkzk5JjeSI8 vDGzEb36QWiki1SgrY4gIDQsWA n6cH5dOLovwzOnlzAgHK68QIUn apAvf3XwhVgngtItj4JwmLObl8 CnLJBgWFL9Tq4bnXWmIMOodJ1c t5DaZiJzCKJzFBYYWEHiQPAQvR XuBvUlt7ynu0BvDRZty8ajgleh VX78L21xDZMeiuNgfjz9yFHuMU JytVJhNjZ7ZANzc8jyYD0bRIGs OXk5kW4zHWcukU6bpYSaRS3gLP 7ka8JacVCgmT7zof4uHXKvfOXn h3ExcVY8qMIoIOJqO3Pyb58pKQ 4lHBTeB5xrkn95cbGoFn12SZnb y2AjjEWtebMgw4KzzDl5uOSpTG Vyi3XrJXQzGq2iPRAdMKAnEQJc xvSnqcltHIBzrKYsj3NdcCpvc6 YjGWlkQLUdZL1xn4YzjRCpUIMc Ci4yRSb3wNZhPC1mRMFvdxO7go mqehIlWgLzQmQiYSRxpW5yu5iz nXLsaNsvpSjysf9kTLEqnPJlD0 CsBN6hCeF6YSYykSYnn1BdfWI5 uWFoXNMfF8Krf86qMD9jDBHdRY UoYYYomqRltDB4uLOfHGs0mAIw AS2aBUPkNuWsAyX6OMIjdK4pd4 omsWOweVctlTgari0uQDGlAAPR MZEaAeDnh9AthIDjCIUpgS8fpC Ypv1Tfwb1vFdI2QCHuzA1bg9fc fBWxxKkspLeici2hKMHlqCQqA6 XsBE9yWmR6RFOunO8pg0xylVFp dMfhfSftrl6pGAHvBEQvSFG1aL JvdWdoIEIyOSBhZGRpdGlvbmFs QCm6dTBzBA5uCOHmRwogHTJcsE RoUVkWOKXbjjVHfx1sgbKmwQYh bQ0ahOpsmkLrFETrl7IsBHYcBG G7FV3deeUcdYIeNTDQy7DesDTm iQIaNLIrGKBSpJXat51ofeZVgn SgsODyETTgc1JeNVlcCYPEVTG8 GRzqK9gcDVF3 [facility] Work Phone: Pathology report microscopic observation Narrative Other stain n7jblIPhQEFlsSLmEbZnEWPwLI Twj5xaKWFpmJRsNdJnNjJnMfFy GxpmdJUlLMUjPvHxo3gsh026dA Rfg6lpDTEjZqP6vJKtZEXxaGMx T398IYTyWOjrs5nud3WqXGJhkD Ake8D7CJCIwpbxjKx2rOdnH91y p5F1EzbqT9inIEWiQFBoL3CgBV 8yDYBdPnv2MJU0DLC1QMBhZYJl G3QgGI9hKHZbzZDsYXj6x8qjrD muMWGfELW4m6xaKYvdkiReNY6i ea7yyGv7p5bqwyAgMWOwRUMwwY AKWZVzL1NxnKfaXt1gaSe8vIlb IncpRGV6Mfw5FM6qrl38swi0fV iyJXElonlbGnH4RNzlUYNuexem DVt3ZDcjUSCxbZG1XVEftZDxC9 VuEQDwXO7oadt0XAW2YOcbTNJo NdA6ZFIooMTsBBYjyTeuWPjst4 46JEK9BqHmBS3uI4Lgp7G1gM4q iRVwOYRuhHEuXpDiALQmue5fjW CfIPigg3VxBWN6qrO7eNKudSFn CSTfNQ03Injjw1VfHapcDFF1ZY ZstbIfv1Hln4plJvVmaoQmX8im L0GlYBXeCJSqIZSdGdSnorBln8 Oux6YljFXkrUr1c3bnLKNqHVSn mIcms6irPHY8XFBnP2I0oDIfh9 daYLxkGIPybCI9voQ5CJOwqXQa V2RoxG7yLDGiOK7amnj5f9msHC T4GAsoRHOlTvA2cgO2GMPgrXEa NVJdyTeaSQnqr040ZAB9NmHqUY Hkl6XhR1UdsBmcB98zmPwdI52y DAAlcGwwaX1hgQnadS3sRqVoBw MyNFxxbFxwbGFpblxmMVxmczIw GNsmagpwCYDwWCsaU0dqLbPoBO XtbBkdMSvrb4YmNJWgIHRvBuWp PPslcz7qT56vmARwIXitoWoaUC Vme46wfFSiaRJmMb9fyXCoVphp YXJ9 [facility] Work Phone: [facility] Work Phone: XR ABDOMEN /KUB/FLAT PLATE/1 VIEWon [...] Follow-up imaging is suggested to confirm resolution. [facility] Workstation ID: [id number] Dictated by: EFREN BECK on ThuOct 26, 2023 12:39:05 PM EDT Transcribed by: REKHA RODRÍGUEZ on ThuOct 26, 2023 12:58:07 PM EDT Finalized by: EFREN BECK on ThuOct 26, 2023 1:13:35 PM EDT [facility] Comment on above: Order Comment: Injur y/Trauma or Illness?:Illness/Other How long have you had these symptoms (acute/chronic)?:Acute Reason for exam?:post-op port placement History of cancer?:no Surgeries, chemotherapy, or radiation?:no Type of Exam?:Initial Additional signs and symptoms?:. XR Chest View and Abdomen [place] 10-26-2023 GE RIS GE RIS [facility] Radiology Study observation (narrative) [facility] XR Chest View and Abdomen [place] and UprightOrdered By: Efren Beck on 10-26-2023 [facility] Work Phone: Basic metabolic 2000 panelon 2023 Anion gap [Moles/Vol] 10 mmol/L 10 - 2 0 mmol/L [facility] Calcium [Mass/Vol] 8.8 mg/dL 8.4 - 10. 2 mg/dL [facility] Chloride [Moles/Vol] 94 mmol/L Low 98 - 10 8 mmol/L [facility] Creatinine [Mass/Vol] 0.84 mg/dL 0.80 - 1.30 mg/dL [facility] GFR/1.73 sq M.predicted CKD-EPI (S/P/Bld) [Vol rate/Area] 90 - PINF [facility] Glucose [Mass/Vol] 158 mg/dL High 65 - 99 mg/dL [facility] HCO3 [Moles/Vol] 37 mmol/L High 21 - 32 mmol/L [facility] Interpretation and review of laboratory results Abnormal [facility] Potassium [Moles/Vol] 4.1 mmol/L 3.5 - 5.1 mmol/L [facility] Sodium [Moles/Vol] 137 mmol/L 135 - 145 mmol/L [facility] Urea nitrogen [Mass/Vol] 16 mg/dL 8 - 25 mg/dL [facility] Urea nitrogen/Creatinine [Mass ratio] 19.0 mg/mg 10.0 - 20.0 [facility] CBC panel Auto (Bld)on 10-24 Erythrocyte distribution width (RBC) [Entitic vol] 29.2 % High 11.6 - 14.8 % [facility] Hematocrit (Bld) [Volume fraction] 32.0 % Low 41.0 - 53.0 % [facility] Hemoglobin (Bld) [Mass/Vol] 8.2 g/dL Low 13.5 - 17.5 g/dL [facility] Interpretation and review of laboratory results Abnormal [facility] MCH (RBC) [Entitic mass] 20.6 pg Low 26.0 - 34.0 pg [facility] MCHC (RBC) [Mass/Vol] 25.6 g/dL Low 31.0 - 37.0 g/dL [facility] MCV (RBC) [Entitic vol] 80.2 fL 80.0 - 100.0 fL [facility] Nucleated RBC (Bld) [#/Vol] 0.00 10*3/uL [facility] Nucleated RBC/100 WBC (Bld) [Ratio] 0.0 % [facility] Platelet mean volume (Bld) [Entitic vol] 9.4 fL 9.4 - 12.4 fL [facility] Platelets (Bld) [#/Vol] 277 10*3/uL [facility] RBC (Bld) [#/Vol] 3.99 10*6/uL Low [facility] [#/Vol] 6.70 10*3/uL [facility] Glucose (Bld) [Mass/Vol]on 0 2023 Glucose [Mass/Vol] 229 mg/dL High 65 - 99 mg/dL [facility] Interpretation and review of laboratory results Abnormal [facility] Glucose [Mass/Vol] 184 mg/dL High 65 - 99 mg/dL [facility] Interpretation and review of laboratory results Abnormal [facility] Glucose [Mass/Vol] 220 mg/dL High 65 - 99 mg/dL [facility] Interpretation and review of laboratory results Abnormal [facility] Glucose [Mass/Vol] 162 mg/dL High 65 - 99 mg/dL [facility] Interpretation and review of laboratory results Abnormal [facility] Basic metabolic 2000 panelon 10-24-2023 Anion gap [Moles/Vol] 10 mmol/L 10 - 2 0 mmol/L [facility] Calcium [Mass/Vol] 8.8 mg/dL 8.4 - 10. 2 mg/dL [facility] Chloride [Moles/Vol] 96 mmol/L Low 98 - 10 8 mmol/L [facility] Creatinine [Mass/Vol] 0.90 mg/dL 0.80 - 1.30 mg/dL [facility] GFR/1.73 sq M.predicted CKD-EPI (S/P/Bld) [Vol rate/Area] 89 - PINF [facility] Glucose [Mass/Vol] 186 mg/dL High 65 - 99 mg/dL [facility] HCO3 [Moles/Vol] 36 mmol/L High 21 - 32 mmol/L [facility] Interpretation and review of laboratory results Abnormal [facility] Potassium [Moles/Vol] 4.1 mmol/L 3.5 - 5.1 mmol/L [facility] Sodium [Moles/Vol] 138 mmol/L 135 - 145 mmol/L [facility] Urea nitrogen [Mass/Vol] 21 mg/dL 8 - 25 mg/dL [facility] Urea nitrogen/Creatinine [Mass ratio] 23.3 mg/mg High 10.0 - 20.0 [facility] CBC panel Auto (Bld)on 10-23 Erythrocyte distribution width (RBC) [Entitic vol] 29.1 % High 11.6 - 14.8 % [facility] Hematocrit (Bld) [Volume fraction] 29.6 % Low 41.0 - 53.0 % [facility] Hemoglobin (Bld) [Mass/Vol] 7.8 g/dL Low 13.5 - 17.5 g/dL [facility] Interpretation and review of laboratory results Abnormal [facility] MCH (RBC) [Entitic mass] 20.7 pg Low 26.0 - 34.0 pg [facility] MCHC (RBC) [Mass/Vol] 26.4 g/dL Low 31.0 - 37.0 g/dL [facility] MCV (RBC) [Entitic vol] 78.5 fL Low 80.0 - 100.0 fL [facility] Nucleated RBC (Bld) [#/Vol] 0.00 10*3/uL [facility] Nucleated RBC/100 WBC (Bld) [Ratio] 0.0 % [facility] Platelet mean volume (Bld) [Entitic vol] 9.4 fL 9.4 - 12.4 fL [facility] Platelets (Bld) [#/Vol] 291 10*3/uL [facility] RBC (Bld) [#/Vol] 3.77 10*6/uL Low [facility] WBC (Bld) [#/Vol] 8.17 10*3/uL [facility] Glucose (Bld) [Mass/Vol]on 0 10-24-2023 Glucose [Mass/Vol] 191 mg/dL High 65 - 99 mg/dL [facility] Interpretation and review of laboratory results Abnormal [facility] Glucose [Mass/Vol] 189 mg/dL High 65 - 99 mg/dL [facility] Interpretation and review of laboratory results Abnormal [facility] Glucose [Mass/Vol] 255 mg/dL High 65 - 99 mg/dL [facility] Interpretation and review of laboratory results Abnormal [facility] Glucose [Mass/Vol] 173 mg/dL High 65 - 99 mg/dL [facility] Interpretation and review of laboratory results Abnormal [facility] Basic metabolic 2000 panelon 10-23-2023 Anion gap [Moles/Vol] 11 mmol/L 10 - 2 0 mmol/L [facility] Calcium [Mass/Vol] 8.9 mg/dL 8.4 - 10. 2 mg/dL [facility] Chloride [Moles/Vol] 96 mmol/L Low 98 - 10 8 mmol/L [facility] Creatinine [Mass/Vol] 0.96 mg/dL 0.80 - 1.30 mg/dL [facility] GFR/1.73 sq M.predicted CKD-EPI (S/P/Bld) [Vol rate/Area] 82 - PINF [facility] Glucose [Mass/Vol] 151 mg/dL High 65 - 99 mg/dL [facility] HCO3 [Moles/Vol] 36 mmol/L High 21 - 32 mmol/L [facility] Interpretation and review of laboratory results Abnormal [facility] Potassium [Moles/Vol] 3.8 mmol/L 3.5 - 5.1 mmol/L [facility] Sodium [Moles/Vol] 139 mmol/L 135 - 145 mmol/L [facility] Urea nitrogen [Mass/Vol] 25 mg/dL 8 - 25 mg/dL [facility] Urea nitrogen/Creatinine [Mass ratio] 26.0 mg/mg High 10.0 - 20.0 [facility] CBC panel Auto (Bld)on 10-22 Erythrocyte distribution width (RBC) [Entitic vol] 29.1 % High 11.6 - 14.8 % [facility] Hematocrit (Bld) [Volume fraction] 31.7 % Low 41.0 - 53.0 % [facility] Hemoglobin (Bld) [Mass/Vol] 8.4 g/dL Low 13.5 - 17.5 g/dL [facility] Interpretation and review of laboratory results Abnormal [facility] MCH (RBC) [Entitic mass] 20.6 pg Low 26.0 - 34.0 pg [facility] MCHC (RBC) [Mass/Vol] 26.5 g/dL Low 31.0 - 37.0 g/dL [facility] MCV (RBC) [Entitic vol] 77.9 fL Low 80.0 - 100.0 fL [facility] Nucleated RBC (Bld) [#/Vol] 0.02 10*3/uL High [facility] Nucleated RBC/100 WBC (Bld) [Ratio] 0.2 % [facility] Platelet mean volume (Bld) [Entitic vol] 9.5 fL 9.4 - 12.4 fL [facility] Platelets (Bld) [#/Vol] 333 10*3/uL [facility] RBC (Bld) [#/Vol] 4.07 10*6/uL Low [facility] WBC (Bld) [#/Vol] 11.76 10*3/uL High [facility] Glucose (Bld) [Mass/Vol]on 0 10-23-2023 Glucose [Mass/Vol] 239 mg/dL High 65 - 99 mg/dL [facility] Interpretation and review of laboratory results Abnormal [facility] Glucose [Mass/Vol] 205 mg/dL High 65 - 99 mg/dL [facility] Interpretation and review of laboratory results Abnormal [facility] Glucose [Mass/Vol] 244 mg/dL High 65 - 99 mg/dL [facility] Interpretation and review of laboratory results Abnormal [facility] Glucose [Mass/Vol] 158 mg/dL High 65 - 99 mg/dL [facility] Interpretation and review of laboratory results Abnormal [facility] Basic metabolic 1998 panelon 10-22-2023 Anion gap [Moles/Vol] 14 mmol/L 10 - 2 0 mmol/L [facility] Chloride [Moles/Vol] 100 mmol/L 98 - 10 8 mmol/L [facility] Creatinine [Mass/Vol] 1.06 mg/dL 0.80 - 1.30 mg/dL [facility] GFR/1.73 sq M.predicted CKD-EPI (S/P/Bld) [Vol rate/Area] 73 - PINF [facility] Glucose [Mass/Vol] 290 mg/dL High 65 - 99 mg/dL [facility] HCO3 [Moles/Vol] 31 mmol/L 21 - 32 mmol/L [facility] Interpretation and review of laboratory results Abnormal [facility] Potassium [Moles/Vol] 4.2 mmol/L 3.5 - 5.1 mmol/L [facility] Sodium [Moles/Vol] 141 mmol/L 135 - 145 mmol/L [facility] Urea nitrogen [Mass/Vol] 26 mg/dL High 8 - 25 mg/dL [facility] Urea nitrogen/Creatinine [Mass ratio] 24.5 mg/mg High 10.0 - 20.0 [facility] CBC panel Auto (Bld)on 10-21 Erythrocyte distribution width (RBC) [Entitic vol] 27.5 % High 11.6 - 14.8 % [facility] Hematocrit (Bld) [Volume fraction] 30.1 % Low 41.0 - 53.0 % [facility] Hemoglobin (Bld) [Mass/Vol] 7.9 g/dL Low 13.5 - 17.5 g/dL [facility] Interpretation and review of laboratory results Abnormal [facility] MCH (RBC) [Entitic mass] 20.1 pg Low 26.0 - 34.0 pg [facility] MCHC (RBC) [Mass/Vol] 26.2 g/dL Low 31.0 - 37.0 g/dL [facility] MCV (RBC) [Entitic vol] 76.6 fL Low 80.0 - 100.0 fL [facility] Nucleated RBC (Bld) [#/Vol] 0.02 10*3/uL High [facility] Nucleated RBC/100 WBC (Bld) [Ratio] 0.2 % [facility] Platelet mean volume (Bld) [Entitic vol] 9.7 fL 9.4 - 12.4 fL [facility] Platelets (Bld) [#/Vol] 324 10*3/uL [facility] RBC (Bld) [#/Vol] 3.93 10*6/uL Low [facility] WBC (Bld) [#/Vol] 12.74 10*3/uL High [facility] Glucose (Bld) [Mass/Vol]on 0 10-22-2023 Glucose [Mass/Vol] 141 mg/dL High 65 - 99 mg/dL [facility] Interpretation and review of laboratory results Abnormal [facility] Glucose [Mass/Vol] 150 mg/dL High 65 - 99 mg/dL [facility] Interpretation and review of laboratory results Abnormal [facility] Glucose [Mass/Vol] 242 mg/dL High 65 - 99 mg/dL [facility] Interpretation and review of laboratory results Abnormal [facility] Glucose [Mass/Vol] 296 mg/dL High 65 - 99 mg/dL [facility] Interpretation and review of laboratory results Abnormal [facility] Tissue ExamOrdered By: Neftali leo on 10-22-2023 Case Report [facility] Work Phone: Clinical information j3korAYgWRGegIUuPPS wNVxhbn BgHYBxgCFsB5SrelcbOGjhLG1v VY9vuEsqoEAatORrOCCtOrXch3 tyk144cSUiw6rrBAWBxphzrTf5 qPsnP04lw1V5GgdgA1mjQVKkSG slNTMdSEmqvOFrOPn5KDHutGVh puEiZnSpIVVxgYZnyKT4ZGVbFX 2ksasuXPqoPUdwBNZncdP1GZDo fWOzP3IeVIErUH7cotoqUNN8WJ bxJISjQYE5WbMpNEYcd6Nizgb4 MjBccGFyZFxwbGFpblxmczIwXG IkAEOVtx3jLITnFspahMJrH6iy QO3beLfsPEOvYPYnZFLjnu2= [facility] Work Phone: Pathology report final diagnosis Narrative w2ufgPSeDRLshABlNFHtPVydqe MxMVLwkXWyJ5QssylnYHjpXX8s DD9snLruvFHygJTdCAEaHaAzo4 myx610iVYbs6laMGTJtsgncKo6 eFumV60dz6J0ClinK29vlWUsYL U3FUBmXHSnhCWbIHFtUOK5GRAp lWWiS0aoHNSrZK1opiyuAQfdDU icWSYbsXP6OPSctPLeO4DoRTBy XVudURKnirv7JnPdSk2llBBqxB cyMFxwYXJkXHBsYWluXGJcZnMy AHPOQrFhQ81wo95kTCHdW8BmZV 5nc1QnKDUpx8HvrQjnlYWgZWtp NzIwXGxpbjcyMFxiMCBJbnZhc2 d4RMZaYXKtx3LynwSepk5nGYqr t3UePLCvlE7mzeQzCCElrtrcRR EvuNTXr58eHD78XkUrEPHwWRYg XQIjRMBnxFEufXGflRryHQ3oIB MiWLLpvoHqn8q0ZWHhJFGci7Jm grRapf1wXICpkeQ0qLZhm5UluJ ubUQGTEDLwy1Z8XLprcqT6hVlz IGJlIGRlZmVycmVkIHRvIHRoZS SqXTToM1Syv75ye6HeO0szQR8x XHBhcn0= [employer] Work Phone: Pathology report gross observation Narrative g3exwLIvQNRnrUTkASMbIRsxmq WlZDLnqNMcP5UxykfnUOhyTV1p UK6ipGrqzDTjxIOtYVMyXdFlv1 mfh461tIGzy1brOYNByfcovBg4 rYviB25qw2S2KpixG14brYEuDK O5NUAcTFJjnXHuTXOyKRE9WGDm qBWoZ5ztEEJtXW0uwmdyZXzqWT uwDBRxbKZ6ICChxLNjN3LnAHOo LXtxPJCeqgj4AxPcFg6owHJlcZ llBJnbX6bicB7zYkX4UXvxP3gf vJ0pKQj0OAhsCNGhwQB3slE8SF VzdQRoZ0MfiC0vAZYeHT3drdq8 o3dqKLI7JEtnCBRuHhS8deK1HH BccGFyZFxwbGFpblxmczIwXHBy a4UfZ7R1SUTxFJpwo6prJQBrEH uye0GpTEaRPSGJEE3KXM4qeVZ4 OHxVXXJJB7iIfDV9GgJ8nZW7SV 48CTKwYIIccJWuLJjnZ661NZru KotbsPU4XPtvVrffaY9cgIBOOW UQQycQIlckheUrIJ7NLGKZUX8R gCA5MwX4iKR2QE53XRLvFEFvfJ EjOPygM736SDUkNGqnIRHcLaXq ZmBVYYAopUJtGMWwxnZgg5RhRI kuqqypVWKykMpqXKStNXHgC53m u96cWAOaF9XjKPQsj8FuqMHeLS nujl81DWZ1o4nkdCTvTBhjTuau rGNiprZ6GOzFYHCDRWvNJkJrER 0vZVeJH5JFYXrYBkgkHTS6NVyv wAX2d6bbjEMzl9p9JBrsOZB6wY IzDWHsy7gjoARoVIhpClpmfEUt qyF0OGhCNHJBWVtPQpMxDM1aCI xSP5HEUnJ8RgWaYAS5LhynmNot IapgvhXaeKViKgGkrA9kmYzmpD 6oYpFqPWEfxZTxBOUwJHtaFT75 GDBfZW4qAJDbt1H7JIHzZOOavF GfjenaPY44ZRzxDG76MXpwTU7j ZCVdDFEyv0XbH3Z0FRIxKIkfs8 nkNEQkJXojc4ZxWWjGMPLAIX1T KM2twDQ9WSkVXILHJ2yGnBY8AP VrlVT6Q787JCFuOEGejXCbQBdw T798QXgmZGPvP0WkN8G0JH63JX RmSKunu4jvNNHwYIiik9FsITjD CVXPVQ1LNQ3zmFX9XUsEPWHACA bcMSL3F3ynkIW9z6escXIdz4d7 CMumROZ5lPxiaXYywgrncvWtDX ZhVR65HMiprALmxTKviUP8IASe mU5nQVPaQTYjBYK6JLmeMM9qwG ZeVLAxjiSTMOqbNCTbT6Szw1Nx XIhtrNwbQAWqg08npNIpLu3ujG AfTDP3ZaNPVF3xYqnfvEHlUY2u lUc3XMkqXCEuRkDlB2sfp2XmYV EiFAWgcgXjDF8puoSdeBAqHXin Z3qhFZG1NJYoqAYhIYStJ50WKs DXUCMYW04QTUSNNGGUN1WNO6gL FOH9OlL2cQV7BU4aHJO5JEqoLX wxWvJaLGW5Wp5bRIDRALLHHHgD LX6IHNZOMHHKFR2IDhTzP8cMOM ZPPbDrLWKUQRGATIXjUeOEMY2r X3tKHVLUOcVyIHDGEXZVVQFxRE 4FUWBJPBGJPD3SWSEJG62RBMIH CYCNS1ZKO1wAYCOqi0LmvkN6AJ fkIfPfuRUpx3BIctWfQvPkSK46 CeU1BHBnHV5yEShGPIEpjnGjS0 skGDhklNF2HdQxHTJlzXEDAQZE TBkJMKQDNi2GNRYDNCDERU0MHw OoD0HXWG7BHb1SOWVMAJKHLR4O BDvXDrNvC0LZES4GUq1ZSCNNLA OLLA7ZHfDvBXAQF1WUCuMXE6yj ECSXEKSWUQRdQjTQKV9gZCHDXP 3OOSNZCLTSJ01WKIBXTQWTU3NV RH0= [facility] Work Phone: Pathology report microscopic observation Narrative Other stain h9nupNMdNTVtaMYjUcFsOFUkSC Ild0uaYMYunARiHyGvIvUpMmPe JhhvrRJxVDJoFrVbd6goz545xN Iml4fhWLOgFzX7zENpKFBscAOe I617FPXlFLjmv0zey6XxHSYtmO Ejo7X9XBTUrenybMq5iQneS68q y8J8EhbfY5mxANWsMPLfT0SfCF 2dXUSkRkl1JZW0BDT4NIJsMCUs Y8MfJH0qMMVafREjPCg9c8ihcH gsONGnGJP6m1hlYCizsgIuQN5v ey3ghAr1b4noifRcJWQwBIUcpN DZPKClE6FwvWuuJi0upAz0zMnm XapsTKP4Iyi1HI9jgo05iik0zF npNAQmyusnOzO6EXahSZNajfqc SRr3TRrcSBSmePX5PZHxbQTcG6 ZkCQDeQQ0skwg3NER2KNjhTNDt KwU6IHExbNUeYUFpoCwdASbrs3 02KQT3VlBbLU4zI1Veo4O0fH5w hHZgFWCzbKEkJsAkYVDepx2ryS WmCUnqc9FyTCB2muV1fNVfvGKq OAQnNN63Dqshn6CbDkmxCCB7MA YsyhVgh7Nlp0fkOpNlntZgG8nz V4UnWOEtAABjPMEqMeUdonIvl7 Usz7OiaZConPf8j1imVEGoQACl dUhst9ozZID6WOHmT1Y7pTSic3 cpPYxqMSUwtAF5baD5OGDqhGWq C3EkyY6sAPDqCH7tuuh5r9ojGR P8GXgdCANtIzQ0ckN7KWZtgNNz UFEowEjqSVdrj513UFX2TrSkIN Xca8JcF2XzkDutL75arGhqW28g CBHojDyilL7uwCuebS7oCwIdUx MyNFxxbFxwbGFpblxmMVxmczIw XVqigpbsQFYnQBgoD7hvMxMmIX VqvXpxFDokx8BoUKFkSXMbDpJq CDxixw0wI28boRFgBFfovXvuTV Jcb80maOZbsSZbAt1thAXgDdtc YXJ9 [facility] Work Phone: [facility] Work Phone: ECHOCARDIOGRAM COMPLETEon ECHOCARDIOGRAM COMPLETE Patient Info Name: DIPTI SIERRA Age: 77 years : 1945 Gender: Male Ht: 170 cm Wt: 104 kg BSA: 2.26 m2 HR: 80 bpm BP: 128 / 69 mmHg Heart Rhythm: Sinus Rhythm Technical Quality: Fair Exam Date: 10/21/2023 8:12 AM 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 Left ventricular [...] mmHg MV VTI 30 cm MV Decel Grainger 237 cm/s2 MV PHT 83 ms MV [...] Normal ------- (more content not included)... Normal [facility] ETT Airwayon 10-21-2023 Niles Chapman AA 10/21/2023 12:42 PM ETT Airway Mask ventilation: ventilated by mask Technique: video laryngoscopy and intubating stylet Type: cuffed oral Tube size: 7.5 mm Final laryngoscope: video laryngoscope 4 [place] Location: oral Final grade: 1 Insertion attempts: 1 Placement verification: end tidal CO2, auscultation, symmetrical chest wall movement and cuff palpation Secured at: 24 cm (measured from the lips) Secured by: tape Bite block: none Lip/tooth/tongue trauma: no Comments: Darin Milka [facility] Echo CompleteOrdered By: Sara Lang on 10-21-2023 Aortic valve area 2.943 cm [facility] Work Phone: AV mean gradient 5.28560 mmHg [facility] Work Phone: [phone] AV peak gradient 9.02248 mmHg [facility] Work Phone: [phone] EF 57.5409 % [facility] Work Phone: [facility] Work Phone: Echo Completeon 10-21-2023 [employer] SYNAPSE CV [facility] Glucose (Bld) [Mass/Vol]on 0 10-21-2023 Glucose [Mass/Vol] 228 mg/dL High 65 - 99 mg/dL [facility] Interpretation and review of laboratory results Abnormal [facility] Glucose [Mass/Vol] 201 mg/dL High 65 - 99 mg/dL [facility] Interpretation and review of laboratory results Abnormal [facility] Glucose [Mass/Vol] 159 mg/dL High 65 - 99 mg/dL [facility] Interpretation and review of laboratory results Abnormal [facility] Glucose [Mass/Vol] 166 mg/dL High 65 - 99 mg/dL [facility] Interpretation and review of laboratory results Abnormal [facility] Hemoglobin and Hematocrit pa harvey (Bld)on 10-21-2023 Hematocrit (Bld) [Volume fraction] 31.0 % Low 41.0 - 53.0 % [facility] Hemoglobin (Bld) [Mass/Vol] 8.5 g/dL Low 13.5 - 17.5 g/dL [facility] Interpretation and review of laboratory results Abnormal [facility] Hematocrit (Bld) [Volume fraction] 31.9 % Low 41.0 - 53.0 % [facility] Hemoglobin (Bld) [Mass/Vol] 8.7 g/dL Low 13.5 - 17.5 g/dL [facility] Interpretation and review of laboratory results Abnormal [facility] Hematocrit (Bld) [Volume fraction] 30.4 % Low 41.0 - 53.0 % [facility] Hemoglobin (Bld) [Mass/Vol] 8.3 g/dL Low 13.5 - 17.5 g/dL [facility] Interpretation and review of laboratory results Abnormal [facility] Hematocrit (Bld) [Volume fraction] 28.8 % Low 41.0 - 53.0 % [facility] Hemoglobin (Bld) [Mass/Vol] 8.0 g/dL Low 13.5 - 17.5 g/dL [facility] Interpretation and review of laboratory results Abnormal [facility] NT Pro BNPon 10-21-2023 Natriuretic peptide.B prohormone N-Terminal [Mass/Vol] 712 pg/mL High 0 - 300 pg/mL [facility] Natriuretic peptide.B prohor loc N-Terminal [Mass/Vol]on 10-21-2023 Interpretation and review of laboratory results Abnormal [facility] TISSUE EXAMon 10-21-2023 TISSUE EXAM Surgical Pathology R eport Case: [id number] Authorizing Provider: Austen Hall MD Collected: 10/21/2023 03:56 PM Ordering Location: [facility] Received: 10/22/2023 07:44 AM Pathologist: Kiran Lopez [...] immunohistochemistry and/or in-situ hybridization was completed at [facility], [address] [place] [address]. CPT codes: 09596 x 4 Cecal mass suspected colon cancer [...] bowel is adhesed. This is inked blue. Storehouse Clerk sections of colon with serosal involvement by [...] into and through the bowel wall. Additional sales representative livestock sections of tumor are submitted blocks B10 and B11. The background colonic mucosa is erythematous but shows no additional polyps or mass lesions. Storehouse Clerk sections of background bowel wall are submitted block B12. The mesenteric adipose tissue is then stripped for lymp (more content not included)... Normal [facility] Comment on above: Performed By: #### [id number] ####[facility] [address] [place], [place] [address] Saeid Platt M.D. [id number] XR CHEST PA/APon 10-21-2023 XR CHEST PA/AP [...] on ThuOct 21, 2023 6:06:35 PM EDT [facility] Comment on above: Order Comment: Injur y/Trauma or Illness?:Illness/Other How long have you had these symptoms (acute/chronic)?:Acute Reason for exam?:post-op port placement History of cancer?:no Surgeries, chemotherapy, or radiation?:no Type of Exam?:Initial Additional signs and symptoms?:. XR Chest PA and Abdomen APon 10-21-2023 Hapara RIS Zanbato [facility] Radiology Study observation (narrative) [facility] XR Chest PA and Abdomen APOr dered By: Angel Harrison on 10-21-2023 [facility] Work Phone: XR OR FLUOROSCOPY TIMEon XR OR FLUOROSCOPY TIME This is an auto finalized result. Please refer to patient chart for further information. further information. further information. [facility] Comment on above: Order Comment: Injur y/Trauma or Illness?:Illness/Other How long have you had these symptoms (acute/chronic)?:Acute Reason for exam?:post-op port placement History of cancer?:no Surgeries, chemotherapy, or radiation?:no Type of Exam?:Initial Additional signs and symptoms?:. XR and RF Chest PA and Later al and Viewson 10-21-2023 GE RIS APTTon 10-20-2023 aPTT Coag (Bld) [Time] 37 s High [facility] B12/Folateon 10-20-2023 Cobalamin (Vitamin B12) [Mass/Vol] 353 pg/mL 232 - 1245 pg/mL [facility] Folate [Mass/Vol] 13.1 ng/mL 3.1 - 17.5 ng/mL [facility] Interpretation and review of laboratory results Normal [facility] Basic metabolic 2000 panelon 10-20-2023 Anion gap [Moles/Vol] 13 mmol/L 10 - 2 0 mmol/L [facility] Calcium [Mass/Vol] 8.0 mg/dL Low 8.4 - 10. 2 mg/dL [facility] Chloride [Moles/Vol] 103 mmol/L 98 - 10 8 mmol/L [facility] Creatinine [Mass/Vol] 1.00 mg/dL 0.80 - 1.30 mg/dL [facility] GFR/1.73 sq M.predicted CKD-EPI (S/P/Bld) [Vol rate/Area] 78 - PINF [facility] Glucose [Mass/Vol] 137 mg/dL High 65 - 99 mg/dL [facility] HCO3 [Moles/Vol] 27 mmol/L 21 - 32 mmol/L [facility] Interpretation and review of laboratory results Abnormal [facility] Potassium [Moles/Vol] 4.0 mmol/L 3.5 - 5.1 mmol/L [facility] Sodium [Moles/Vol] 139 mmol/L 135 - 145 mmol/L [facility] Urea nitrogen [Mass/Vol] 24 mg/dL 8 - 25 mg/dL [facility] Urea nitrogen/Creatinine [Mass ratio] 24.0 mg/mg High 10.0 - 20.0 [facility] CBC Auto Differentialon 09-28 Basophils (Bld) [#/Vol] 0.03 10*3/uL [facility] Basophils/100 WBC (Bld) 0.3 % [facility] Eosinophils (Bld) [#/Vol] 0.14 10*3/uL [facility] Eosinophils/100 WBC (Bld) 1.4 % [facility] Erythrocyte distribution width (RBC) [Entitic vol] 24.7 % High 11.6 - 14.8 % [facility] Hematocrit (Bld) [Volume fraction] 27.7 % Low 41.0 - 53.0 % [facility] Hemoglobin (Bld) [Mass/Vol] 7.8 g/dL Low 13.5 - 17.5 g/dL [facility] Immature granulocytes (Bld) [#/Vol] 0.17 10*3/uL [facility] Immature granulocytes/100 WBC (Bld) 1.70 % [facility] Interpretation and review of laboratory results Abnormal [facility] Lymphocytes (Bld) [#/Vol] 0.74 10*3/uL Low [facility] Lymphocytes/100 WBC (Bld) 7.6 % [facility] MCH (RBC) [Entitic mass] 20.5 pg Low 26.0 - 34.0 pg [facility] MCHC (RBC) [Mass/Vol] 28.2 g/dL Low 31.0 - 37.0 g/dL [facility] MCV (RBC) [Entitic vol] 72.9 fL Low 80.0 - 100.0 fL [facility] Monocytes (Bld) [#/Vol] 0.59 10*3/uL [facility] Monocytes/100 WBC (Bld) 6.0 % [facility] Neutrophils (Bld) [#/Vol] 8.10 10*3/uL High [facility] Neutrophils/100 WBC (Bld) 83.0 % [facility] Nucleated RBC (Bld) [#/Vol] 0.05 10*3/uL High [facility] Nucleated RBC/100 WBC (Bld) [Ratio] 0.5 % [facility] Platelet mean volume (Bld) [Entitic vol] 9.3 fL Low 9.4 - 12.4 fL [facility] Platelets (Bld) [#/Vol] 318 10*3/uL [facility] RBC (Bld) [#/Vol] 3.80 10*6/uL Low [facility] ealth WBC (Bld) [#/Vol] 9.77 10*3/uL [facility] ealth [facility] CEAOrdered By: Carola Peña on 10-20-2023 Carcinoembryonic Ag [Mass/Vol] 42.00 ng/mL High 0.00 - 2.50 ng/mL [facility] Interpretation and review of laboratory results Abnormal [facility] COLONOSCOPYon 10-20-[address] [facility] [address] Abdomen and Pelvis W cont rast Miladis 10-20-2023 GE RIS GE RIS [facility] Radiology Study observation (narrative) [facility] CT Abdomen and Pelvis W cont rast IVOrdered By: Guillermo Bose on 10-20-2023 [facility] Work Phone: CTA PULM ART AND CT [...] and hilar lymph nodes that are nonspecific. [facility] Workstation ID: [id number] Dictated by: GUILLERMO BOSE on ThuOct 20, 2023 12:21:39 PM EDT Transcribed by: TARA AVILA on ThuOct 20, 2023 12:46:37 PM EDT Finalized by: GUILLERMO BOSE on ThuOct 20, 2023 1:33:07 PM EDT Normal [facility] Comment on above: Order Comment: Injur y/Trauma or Illness?:Illness/Other How long have you had these symptoms (acute/chronic)?:Acute Reason for exam?:post-op port placement History of cancer?:no Surgeries, chemotherapy, or radiation?:no Type of Exam?:Initial Additional signs and symptoms?:. Comprehensive metabolic 2000 panelon 10-20-2023 Albumin [Mass/Vol] 3.3 g/dL 3.2 - 5.2 g/dL [facility] ALP [Catalytic activity/Vol] 80 U/L 40 - 150 U/L [facility] ALT [Catalytic activity/Vol] 8 U/L 0-50 U/L [facility] Anion gap [Moles/Vol] 14 mmol/L 10 - 2 0 mmol/L [facility] AST [Catalytic activity/Vol] 22 U/L 0-50 U/L [facility] Bilirubin [Mass/Vol] 0.7 mg/dL 0.0 - 1 .3 mg/dL [facility] Calcium [Mass/Vol] 8.3 mg/dL Low 8.4 - 10. 2 mg/dL [facility] Chloride [Moles/Vol] 104 mmol/L 98 - 10 8 mmol/L [facility] Creatinine [Mass/Vol] 1.00 mg/dL 0.80 - 1.30 mg/dL [facility] GFR/1.73 sq M.predicted CKD-EPI (S/P/Bld) [Vol rate/Area] 78 - PINF [facility] Glucose [Mass/Vol] 169 mg/dL High 65 - 99 mg/dL [facility] HCO3 [Moles/Vol] 27 mmol/L 21 - 32 mmol/L [facility] Interpretation and review of laboratory results Abnormal [facility] Potassium [Moles/Vol] 4.2 mmol/L 3.5 - 5.1 mmol/L [facility] Protein [Mass/Vol] 6.0 g/dL 6.0 - 8.0 g/dL [facility] Sodium [Moles/Vol] 141 mmol/L 135 - 145 mmol/L [facility] Urea nitrogen [Mass/Vol] 19 mg/dL 8 - 25 mg/dL [facility] Urea nitrogen/Creatinine [Mass ratio] 19.0 mg/mg 10.0 - 20.0 [facility] ENDOSCOPY, ESOPHAGUSon 10-19 [facility] Glucose (Bld) [Mass/Vol]on 0 10-20-2023 Glucose [Mass/Vol] 173 mg/dL High 65 - 99 mg/dL [facility] Interpretation and review of laboratory results Abnormal [facility] Glucose [Mass/Vol] 117 mg/dL High 65 - 99 mg/dL [facility] Interpretation and review of laboratory results Abnormal [facility] Glucose [Mass/Vol] 157 mg/dL High 65 - 99 mg/dL [facility] Interpretation and review of laboratory results Abnormal [facility] Glucose [Mass/Vol] 142 mg/dL High 65 - 99 mg/dL [facility] Interpretation and review of laboratory results Abnormal [facility] Hemoglobin and Hematocrit pa harvey (Bld)on 10-20-2023 Hematocrit (Bld) [Volume fraction] 28.9 % Low 41.0 - 53.0 % [facility] Hemoglobin (Bld) [Mass/Vol] 8.0 g/dL Low 13.5 - 17.5 g/dL [facility] Interpretation and review of laboratory results Abnormal [facility] Hematocrit (Bld) [Volume fraction] 28.6 % Low 41.0 - 53.0 % [facility] Hemoglobin (Bld) [Mass/Vol] 8.0 g/dL Low 13.5 - 17.5 g/dL [facility] Interpretation and review of laboratory results Abnormal [facility] INR Coag (PPP) [Relative mario e]Ordered By: Rafaela Shukla on 10-20-2023 Interpretation and review of laboratory results Abnormal [facility] PT Coag (PPP) [Time] 15.1 s High [facility] PT/INROrdered By: Rafaela butler on 10-20-2023 INR Coag (PPP) [Relative time] 1.2 {INR} High 0.8 - 1.1 [facility] aPTT Coag (Bld) [Time]on Interpretation and review of laboratory results Abnormal [facility] ABORH Verificationon 024 ABO and Rh group Nom (Bld) Blood group O Rh(D) positive [facility] ABO and Rh group Nom (Bld) ABO/Rh Verification [facility] Basic metabolic 2000 panelon 10-19-2023 Anion gap [Moles/Vol] 15 mmol/L 10 - 2 0 mmol/L [facility] Calcium [Mass/Vol] 8.2 mg/dL Low 8.4 - 10. 2 mg/dL [facility] Chloride [Moles/Vol] 102 mmol/L 98 - 10 8 mmol/L [facility] Creatinine [Mass/Vol] 1.24 mg/dL 0.80 - 1.30 mg/dL [facility] GFR/1.73 sq M.predicted CKD-EPI (S/P/Bld) [Vol rate/Area] 61 - PINF [facility] Glucose [Mass/Vol] 288 mg/dL High 65 - 99 mg/dL [facility] HCO3 [Moles/Vol] 26 mmol/L 21 - 32 mmol/L [facility] Interpretation and review of laboratory results Abnormal [facility] Potassium [Moles/Vol] 4.3 mmol/L 3.5 - 5.1 mmol/L [facility] Sodium [Moles/Vol] 139 mmol/L 135 - 145 mmol/L [facility] Urea nitrogen [Mass/Vol] 33 mg/dL High 8 - 25 mg/dL [facility] Urea nitrogen/Creatinine [Mass ratio] 26.6 mg/mg High 10.0 - 20.0 [facility] Blood type and Indirect anti body screen panel (Bld)on 10-19-2023 ABO and Rh group Nom (Bld) Blood group O Rh(D) positive [facility] Blood group antibody screen Ql Negative [facility] Specimen Expires 10/22/2023 23:59 EST [facility] CBC Auto Differentialon 09-28 Basophils (Bld) [#/Vol] 0.04 10*3/uL [facility] Basophils/100 WBC (Bld) 0.4 % [facility] Eosinophils (Bld) [#/Vol] 0.14 10*3/uL [facility] Eosinophils/100 WBC (Bld) 1.5 % [facility] Erythrocyte distribution width (RBC) [Entitic vol] 23.2 % High 11.6 - 14.8 % [facility] Hematocrit (Bld) [Volume fraction] 22.3 % Low 41.0 - 53.0 % [facility] Hemoglobin (Bld) [Mass/Vol] 5.5 g/dL Critically low 13.5 - 17.5 g/dL [facility] Immature granulocytes (Bld) [#/Vol] 0.10 10*3/uL [facility] Immature granulocytes/100 WBC (Bld) 1.00 % [facility] Interpretation and review of laboratory results Abnormal [facility] Lymphocytes (Bld) [#/Vol] 0.79 10*3/uL Low [facility] Lymphocytes/100 WBC (Bld) 8.2 % [facility] MCH (RBC) [Entitic mass] 17.1 pg Low 26.0 - 34.0 pg [facility] MCHC (RBC) [Mass/Vol] 24.7 g/dL Low 31.0 - 37.0 g/dL [facility] MCV (RBC) [Entitic vol] 69.3 fL Low 80.0 - 100.0 fL [facility] Monocytes (Bld) [#/Vol] 0.62 10*3/uL [facility] Monocytes/100 WBC (Bld) 6.5 % [facility] Neutrophils (Bld) [#/Vol] 7.91 10*3/uL High [facility] Neutrophils/100 WBC (Bld) 82.4 % [facility] Nucleated RBC (Bld) [#/Vol] 0.05 10*3/uL High [facility] Nucleated RBC/100 WBC (Bld) [Ratio] 0.5 % [facility] Platelet mean volume (Bld) [Entitic vol] 9.7 fL 9.4 - 12.4 fL [facility] Platelets (Bld) [#/Vol] 359 10*3/uL [facility] RBC (Bld) [#/Vol] 3.22 10*6/uL Low [facility] ealth WBC (Bld) [#/Vol] 9.60 10*3/uL [facility] eah CBC and Diff Morphologyon Ovalocytes LM Ql (Bld) Few [facility] Polychromasia LM Ql (Bld) Few [facility] RBC morphology finding Nom (Bld) See Comment [facility] Target cells LM Ql (Bld) Few [facility] COVID-19/INFLUENZA A,B MOLEC ULARon 10-19-2023 SARS-CoV-2 (COVID-19) Ab IA Ql SARS-COV-2 (CLEOPATRA): Not Detected INFLUENZA A (CLEOPATRA): Not Detected INFLUENZA B (CLEOPATRA): Not Detected Normal Not Detected [facility] Comment on above: Performed By: #### L [id number] ####[facility] [address], [place] [address] Saeid Platt M.D. [id number] Critical Careon 10-19-2023 [facility] EKGon 10-19-2023 [facility] EKG 12-leadon 10-19-2023 Atrial Rate 92 BPM [facility] P [place] 67 degrees [facility] P-R Interval 126 ms [facility] Q-T Interval 358 ms [facility] QRS Duration 82 ms [facility] QTC Calculation (Bezet) 442 ms [facility] R [place] 67 degrees [facility] T [place] 68 degrees [facility] Ventricular Rate 92 BPM [facility] MUSE [facility] Glucose (Bld) [Mass/Vol]on 0 10-19-2023 Glucose [Mass/Vol] 187 mg/dL High 65 - 99 mg/dL [facility] Interpretation and review of laboratory results Abnormal [facility] Glucose [Mass/Vol] 167 mg/dL High 65 - 99 mg/dL [facility] Interpretation and review of laboratory results Abnormal [facility] HbA1c (Bld) [Mass fraction]o n 10-19-2023 Average glucose Estimated from glycated hemoglobin (Bld) [Mass/Vol] 171 mg/dL High 74 - 114 mg/dL [facility] Interpretation and review of laboratory results Abnormal [facility] Hemoglobin A1con 10-19-2023 HbA1c (Bld) [Mass fraction] 7.6 % High 4.2 - 5.6 % [facility] Hemoglobin and Hematocrit pa harvey (Bld)on 10-19-2023 Hematocrit (Bld) [Volume fraction] 24.7 % Low 41.0 - 53.0 % [facility] Hemoglobin (Bld) [Mass/Vol] 6.8 g/dL Critically low 13.5 - 17.5 g/dL [facility] Interpretation and review of laboratory results Abnormal [facility] Hematocrit (Bld) [Volume fraction] 21.1 % Low 41.0 - 53.0 % [facility] Hemoglobin (Bld) [Mass/Vol] 5.2 g/dL Critically low 13.5 - 17.5 g/dL [facility] Interpretation and review of laboratory results Abnormal [facility] INR Coag (PPP) [Relative mario e]on 10-19-2023 Interpretation and review of laboratory results Abnormal [facility] PT Coag (PPP) [Time] 16.3 s High [facility] Influenza virus A and B RNA and SARS-CoV-2 (COVID-19) N gene panel ROYCE+probe (Resp)Ordered By: Jamee Smith on 10-19-2023 FLUAV RNA ROYCE+probe Ql (Unsp spec) Not detected Not Detected [facility] FLUBV RNA ROYCE+probe Ql (Unsp spec) Not detected Not Detected [facility] Interpretation and review of laboratory results Normal [facility] SARS-CoV-2 (COVID-19) RNA ROYCE+probe Ql (Resp) Not detected Not Detected [facility] Iron Study with Ferritinon 0 10-19-2023 Ferritin [Mass/Vol] 18 ng/mL Low 30 - 400 ng/mL [facility] Interpretation and review of laboratory results Abnormal [facility] Iron [Mass/Vol] 8 ug/dL Low [facility] h Iron binding capacity [Mass/Vol] 290 [facility] Iron saturation [Mass fraction] 3 % Low 20 - 50 % [facility] Ferritin [Mass/Vol] 19 ng/mL Low 30 - 400 ng/mL [facility] Interpretation and review of laboratory results Abnormal [facility] Iron [Mass/Vol] 10 ug/dL Low [facility] h Iron binding capacity [Mass/Vol] 304 [facility] Iron saturation [Mass fraction] 3 % Low 20 - 50 % [facility] Laboratory - Blood bankon ABO and Rh group Nom (Bld) 5100 [facility] ABO and Rh group Nom (Bld) Blood group O Rh(D) positive [facility] Lactate [Moles/Vol]on 2023 Interpretation and review of laboratory results Normal [facility] Lactic Acid, Plasmaon 2023 Lactate [Moles/Vol] 1.1 mmol/L 0.6 - 2. 0 mmol/L [facility] NT Pro BNPon 10-19-2023 Natriuretic peptide.B prohormone N-Terminal [Mass/Vol] 2593 pg/mL High 0 - 300 pg/mL [facility] Natriuretic peptide.B prohor loc N-Terminal [Mass/Vol]on 10-19-2023 Interpretation and review of laboratory results Abnormal [facility] No Panel Informationon 10-18 Cross Match Compatible [facility] Product ID Red Blood Cells [facility] h Status Info Transfused [facility] Obtain VBG and performon [facility] POC Venous Blood Gas Panel-P ulmon 10-19-2023 Base excess Calc (BldV) [Moles/Vol] 2.0 mmol/L -2.0 - 2.0 [facility] Calcium.ionized [Mass/Vol] 4.4 mg/dL Low 4.5 - 5.3 mg/dL [facility] Carboxyhemoglobin (BldA) [Mass fraction] 4.4 High [facility]F [facility] Chloride [Moles/Vol] 102 mmol/L 98 - 10 8 mmol/L [facility] CO2 (BldV) [Partial pressure] 49.1 mm[Hg] [facility] Glucose post fast [Mass/Vol] 279 mg/dL High 65 - 99 mg/dL [facility] HCO3 (Bld) [Moles/Vol] 27.6 mmol/L 24.0 - 28.0 mmol/L [facility] Hemoglobin (Bld) [Mass/Vol] 6.1 g/dL Critically low 13.5 - 17.5 g/dL [facility] Interpretation and review of laboratory results Abnormal [facility] Lactate [Moles/Vol] 3.0 mmol/L High 0.6 - 2. 0 mmol/L [facility] Methemoglobin (BldA) [Mass fraction] 1.3 % 0.0 - 2.0 % [facility] Oxygen (BldV) [Partial pressure] 49 mm[Hg] High [facility] Oxygen saturation in Venous blood 80.1 % High 40.0 - 70.0 % [facility] Oxyhemoglobin (BldA) [Mass fraction] 75.5 % No established reference range [facility] pH (BldV) 7.36 [pH] 7.32 - 7.42 [facility] Potassium [Moles/Vol] 4.1 mmol/L 3.5 - 5.1 mmol/L [facility] Sodium [Moles/Vol] 141 mmol/L 135 - 145 mmol/L [facility] Specimen source Nom (Unsp spec) Not specified [facility] PT/INRon 10-19-2023 INR Coag (PPP) [Relative time] 1.3 {INR} High 0.8 - 1.1 [facility] Prepare RBC: 1 Unitson 10-18 ABO and Rh group Nom (Bld) 5100 [facility] ABO and Rh group Nom (Bld) Blood group O Rh(D) positive [facility] Cross Match Compatible [facility] Product Code [id number] [facility] Product ID Red Blood Cells [facility] h Status Info Transfused [facility] Unit Number [id number] [facility] Prepare RBC: 2 Unitson 10-18 Product Code [id number] [facility] Product Code [id number] [facility] Unit Number [id number] [facility] Unit Number [id number] [facility] TSH DL <= 0.005 mIU/L Qnon 0 10-19-2023 Interpretation and review of laboratory results Normal [facility] TSH Qn 0.71 m[IU]/L [facility] Troponinon 10-19-2023 Delta Difference Troponin T -4 ng/L < = -/+ 7 change [facility] [facility] Inter Troponin T Delta Change Probable non-acute cardiac injury or late presentation of acute injury. [facility] Troponin T 22 ng/L NINF - 22 ng/L [facility] Troponin x 2 (Now and Repeat in 3 hours)on 10-19-2023 Interp Troponin T Delta Change Delta troponin requires at least 3 hours between collections. [facility] Troponin T 21 ng/L NINF - 22 ng/L [facility] Troponin x 2 (Now and Repeat in 3 hours)Ordered By: Tosha Meyer on 10-19-2023 Interpretation and review of laboratory results Abnormal [facility] Troponin T 26 ng/L Critically high NINF - 22 ng/L [facility] Troponin T Interpretation Possible acute cardiac injury. [facility] UrinalysisOrdered By: Jessica Dela Cruz on 10-19-2023 Bacteria Auto Ql (U) Rare Abnormal None Se en /hpf [facility] Bilirubin Ql (U) Negative Negative [facility] th Clarity Refractometry automated (U) Clear Clear [facility] Color (U) Yellow Colorless, Yellow [facility] Crystals.amorphous Computer assisted (U) [#/Area] Few Abnormal None Seen, Rare /hpf [facility] Epithelial cells.squamous Auto (Urine sed) [#/Area] [facility] Glucose Auto test strip (U) [Mass/Vol] 50 mg/dL Abnormal Negative [facility] Hemoglobin Auto test strip Ql (U) Negative Negative [facility] Hyaline casts Auto (Urine sed) [#/Area] 0-2 [facility] Interpretation and review of laboratory results Abnormal [facility] Ketones (U) [Mass/Vol] Negative Negative mg/dL [facility] Leukocyte esterase Auto test strip Ql (U) Negative Negative [facility] Mucus Auto (Urine sed) [#/Area] Rare None Seen, Rare /lpf [facility] Nitrite Auto test strip Ql (U) Negative Negative [facility] pH (U) 6.0 [pH] 5.0 - 7.0 [facility] Protein (U) [Mass/Vol] 30 mg/dL Abnormal Negative [facility] RBC Auto (Urine sed) [#/Area] 2 [facility] Specific gravity (U) [Rel density] 1.028 High 1.005 - 1.025 [facility] Urobilinogen (U) [Mass/Vol] mg/dL Abnormal [facility]F - 2.0 mg/dL [facility] WBC Auto (Urine sed) [#/Area] 1 [facility] XR CHEST AP/PA AND LATon XR CHEST [...] ThuOct 19, 2023 9:52:50 AM EDT Normal [facility] Comment on above: Order Comment: Injur y/Trauma or Illness?:Illness/Other How long have you had these symptoms (acute/chronic)?:Chronic Reason for exam?:SOB History of cancer?:no Surgeries, chemotherapy, or radiation?:no Type of Exam?:Initial Additional signs and symptoms?:Patient states hes had SOB for years but its been worse the last couple weeks XR Chest PA and Lateral and AP lateral-decubituson 10-19-2023 GE RIS GE RIS [facility] Radiology Study observation (narrative) [facility] XR Chest PA and Lateral and AP lateral-decubitusOrdered By: Mathew Wong on 10-19-2023 [facility] Work Phone: Cholesterol in LDL Direct as say [Mass/Vol]on 06-26-2023 Cholesterol in LDL [Mass/Vol] 66 mg/dL Normal 0-129 [facility] Comment on above: Order Comment: [place] chip levels of LDL cholesterol are recognized as a lopez factor in the development of atherosclerosis and CHD. The direct LDL cholesterol test can be used to assess cardiovascular risk and monitor therapy as a follow up to a lipid profile when triglycerides are significantly elevated. Performed By: #### 1 8262-6 #### CODY Mcfadden ([id number]) [facility] ([facility]) [id number] [place] [address] Comprehensive metabolic 2000 panelon 06-26-2023 Albumin BCP dye [Mass/Vol] 3.9 g/dL Normal 3.4-5.0 [facility] Comment on above: Performed By: #### 2 4323-8 #### AKIL CASTLE ([id number]) [facility] ([facility]) [address] [place] [address] ALP [Catalytic activity/Vol] 83 U/L Normal 33-136 [facility] Comment on above: Performed By: #### 2 4323-8 #### AKIL CASTLE ([id number]) [facility] ([facility]) [address] [place] [address] ALT With P-5'-P [Catalytic activity/Vol] 7 U/L Low 10-52 [facility] Comment on above: Result Comment: Camelia ents treated with Sulfasalazine may generate falsely decreased results for ALT. Performed By: #### 2 4323-8 #### AKIL CASTLE ([id number]) [facility] ([facility]) [address] [place] [address] Anion gap [Moles/Vol] 13 mmol/L Normal 10-20 [facility] Comment on above: Performed By: #### 2 4323-8 #### AKIL CASTLE ([id number]) [facility] ([facility]) [address] [place] [address] AST With P-5'-P [Catalytic activity/Vol] 9 U/L Normal 9-39 [facility] Comment on above: Performed By: #### 2 4323-8 #### AKIL CASTLE ([id number]) [facility] ([facility]) [address] [place] [address] Bilirubin [Mass/Vol] 0.6 mg/dL Normal 0.0-1.2 [facility] Comment on above: Performed By: #### 2 4323-8 #### AKIL CASTLE ([id number]) [facility] ([facility]) [facility] [place] [address] Calcium [Mass/Vol] 8.9 mg/dL Normal 8.6-10.3 [facility] Comment on above: Performed By: #### 2 4323-8 #### AKIL CASTLE ([id number]) [facility] ([facility]) [address] [place] [address] Chloride [Moles/Vol] 101 mmol/L Normal 98-107 [facility] Comment on above: Performed By: #### 2 4323-8 #### AKIL CASTLE ([id number]) [facility] ([facility]) [address] [place] [address]71 CO2 [Moles/Vol] 30 mmol/L Normal 21-32 [facility] Comment on above: Performed By: #### 2 4323-8 #### AKIL CASTLE ([id number]) [facility] ([facility]) [address] [place] [address] Creatinine [Mass/Vol] 1.11 mg/dL Normal 0.50-1.30 [facility] Comment on above: Performed By: #### 2 4323-8 #### AKIL CASTLE ([id number]) [facility] ([facility]) [address] [place] [address] GFR/1.73 sq M.predicted MDRD (S/P/Bld) [Vol rate/Area] 69 mL/min/1.73m*2 Normal >60 [facility] Comment on above: Result Comment: Calc ulations of estimated GFR are performed using the 2020 CKD-EPI Study Refit equation without the race variable for the IDMS-Traceable creatinine methods. https://jasn.asnjournals.org/content/early/ASN.393127 4261 Performed By: #### 2 4323-8 #### AKIL CASTLE ([id number]) [facility] ([facility]) [address] [place] [address] Glucose [Mass/Vol] 171 mg/dL High 74-99 [facility] Comment on above: Performed By: #### 2 4323-8 #### AKIL CASTLE ([id number]) [facility] ([facility]) [address] [place] [address] Potassium [Moles/Vol] 4.1 mmol/L Normal 3.5-5.3 [facility] Comment on above: Performed By: #### 2 4323-8 #### AKIL CASTLE ([id number]) [facility] ([facility]) [address] [place] [address]21 Protein [Mass/Vol] 6.8 g/dL Normal 6.4-8.2 [facility] Comment on above: Performed By: #### 2 4323-8 #### AKIL CASTLE ([id number]) [facility] ([facility]) [address] [place] [address] Sodium [Moles/Vol] 140 mmol/L Normal 136-145 [facility] Comment on above: Performed By: #### 2 4323-8 #### AKIL CASTLE ([id number]) [facility] ([facility]) [address] [place] [address] Urea nitrogen [Mass/Vol] 21 mg/dL Normal 6-23 [facility] Comment on above: Performed By: #### 2 4323-8 #### AKIL CASTLE ([id number]) [facility] ([facility]) [address] [place] [address] HbA1c (Bld) [Mass fraction]o n 06-26-2023 Average glucose Estimated from glycated hemoglobin (Bld) [Mass/Vol] 157 mg/dL Normal Not Established [facility] Comment on above: Order Comment: Diagn osis of Diabetes-Adults Non-Diabetic: < or = 5.6% Increased risk for developing diabetes: 5.7-6.4% Diagnostic of diabetes: > or = 6.5% Monitoring of Diabetes Age (y)....................... Therapeutic Goal (%) Adults: >18.........................<7.0 Pediatrics: 13-18...................<7.5 Pediatrics: 7-12....................<8.0 Pediatrics: 0-6..................... 7.5-8.5 [employer]. Diabetes Care 33(S1)Jun 2009 Performed By: #### 4 548-4 #### AKIL CASTLE ([id number]) [facility] ([facility]) [address] [place], [place] [id number] Hemoglobin A1c/Hemoglobin.to jenny 06-26-2023 HbA1c (Bld) [Mass fraction] 7.1 % High see below [facility] Comment on above: Order Comment: Diagn osis of Diabetes-Adults Non-Diabetic: < or = 5.6% Increased risk for developing diabetes: 5.7-6.4% Diagnostic of diabetes: > or = 6.5% Monitoring of Diabetes Age (y)....................... Therapeutic Goal (%) Adults: >18.........................<7.0 Pediatrics: 13-18...................<7.5 Pediatrics: 7-12....................<8.0 Pediatrics: 0-6..................... 7.5-8.5 [employer]. Diabetes Care 33(S1)Jun 2009 Performed By: #### 4 548-4 #### AKIL CASTLE ([id number]) [facility] ([facility]) [facility] [place] [address] Prostate specific Agon 06-26 Prostate specific Ag [Mass/Vol] 3.09 ng/mL Normal <=4.00 [facility] Comment on above: Order Comment: The F DA requires that the method used for PSA assay be reported to the physician. Values obtained with different assay methods must not be used interchangeably. This test was performed at [facility] using the [employer] PSA assay is a two-site immunoenzymatic sandwich assay. The assay is approved for measurement of prostate-specific antigen (PSA)in serum and may be used in conjunction with a digital rectal examination in men 50 years and older as an aid in detection of prostate cancer. 5-Zkdvi-rxtzlusqo inhibitors (e.g. Proscar, Finasteride, Avodart, Dutasteride and Chante) for the treatment of BPH have been shown to lower PSA levels by an average of 50% after 6 months of treatment. Performed By: #### 2 857-1 #### BARNARD CORRINE ([id number]) [facility] ([facility]) [address] [place] [address] COVID-19, MOLECULARon 2022 SARS-CoV-2 (COVID-19) Ab IA Ql Not detected Normal Not Detected [facility] Comment on above: Result Comment: [...] at the following links: For Healthcare Providers: https://www.fda.gov/media/707990/download For Patients: https://www.fda.gov/media/313978/download ALBUMIN, URINE SPOTon 2022 ALBUMIN,URINE 14.9 mg/L Normal Not Established [facility] Comment on above: Performed By: #### C RP #### [place] [address] ALBUMIN/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 Performed By: #### A LBSP #### [facility] [address] [place] [address] ALBUMIN/CREAT RATIO Canceled Normal [facility] Comment on above: Order Comment: TEST ALBUMIN, URINE SPOT WAS CANCELLED, 12/24/2022 07:15 patient unable to void, will recycle test.. Performed By: #### A LBSP #### [facility] [address] [place] [address] CREATININE,URINE Canceled Normal [facility] Comment on above: Order Comment: TEST ALBUMIN, URINE SPOT WAS CANCELLED, 12/24/2022 07:15 patient unable to void, will recycle test.. Performed By: #### A LBSP #### [facility] [address] [place] [address] COMPREHENSIVE PANELon 2022 Albumin [Mass/Vol] 3.8 g/dL Normal 3.4 - 5.0 [facility] Comment on above: Performed By: #### C MP #### [address] [address] ALP [Catalytic activity/Vol] 78 U/L Normal 33 - 136 [facility] Comment on above: Performed By: #### C MP #### [address] [address] ALT [Catalytic activity/Vol] 11 U/L Normal 10 - 52 [facility] Comment on above: Result Comment: Camelia ents treated with Sulfasalazine may generate falsely decreased results for ALT. Performed By: #### C MP #### [address] [address] Anion gap [Moles/Vol] 12 mmol/L Normal 10 - 20 [facility] Comment on above: Performed By: #### C MP #### [address] [address] AST [Catalytic activity/Vol] 17 U/L Normal 9 - 39 [facility] Comment on above: Performed By: #### C MP #### [address] [address] Bilirubin [Mass/Vol] 0.7 mg/dL Normal 0.0 - 1.2 [facility] Comment on above: Performed By: #### C MP #### [address] [address] Calcium [Mass/Vol] 8.6 mg/dL Normal 8.6 - 10.3 [facility] Comment on above: Performed By: #### C MP #### [address] [address] Chloride [Moles/Vol] 100 mmol/L Normal 98 - 107 [facility] Comment on above: Performed By: #### C MP #### [address] [address] Creatinine [Mass/Vol] 1.16 mg/dL Normal 0.50 - 1.30 [facility] Comment on above: Performed By: #### C MP #### [address] [address] GFR/1.73 sq M.predicted among non-blacks MDRD (S/P/Bld) [Vol rate/Area] 66 mL/min/{1.73_m2} Normal >90 [facility] Comment on above: Result Comment: CALC ULATIONS OF ESTIMATED GFR ARE PERFORMED USING THE 2020 CKD-EPI STUDY REFIT EQUATION WITHOUT THE RACE VARIABLE FOR THE IDMS-TRACEABLE CREATININE METHODS. https://jasn.asnjournals.org/content/early//ASN.283027 0948 Performed By: #### C MP #### [address] [address] Glucose [Mass/Vol] 129 mg/dL High 74 - 99 [facility] Comment on above: Performed By: #### C MP #### [address] [address] HCO3 (Bld) [Moles/Vol] 29 mmol/L Normal 21 - 32 [facility] Comment on above: Performed By: #### C MP #### [address] [address] Potassium [Moles/Vol] 3.9 mmol/L Normal 3.5 - 5.3 [facility] Comment on above: Performed By: #### C MP #### [address] [address] Protein [Mass/Vol] 6.9 g/dL Normal 6.4 - 8.2 [facility] Comment on above: Performed By: #### C MP #### [address] [address] Sodium [Moles/Vol] 137 mmol/L Normal 136 - 145 [facility] Comment on above: Performed By: #### C MP #### [address] [address] Urea nitrogen [Mass/Vol] 19 mg/dL Normal 6 - 23 [facility] Comment on above: Performed By: #### C MP #### [address] [address] HEMOGLOBIN A1Con 12-24-2022 Glucose [Mass/Vol] 151 mg/dL Normal [facility] Comment on above: Performed By: #### H BA1E #### [address] [address] HbA1c (Bld) [Mass fraction] 6.9 % Abnormal [facility] Comment on above: Result Comment: Diag nosis of Diabetes-Adults Non-Diabetic: < or = 5.6% Increased risk for developing diabetes: 5.7-6.4% Diagnostic of diabetes: > or = 6.5% . Monitoring of Diabetes Age (y) Therapeutic Goal (%) Adults: >18 <7.0 Pediatrics: 13-18 <7.5 7-12 <8.0 0- 6 7.5-8.5 [employer]. Diabetes Care 33(S1), Jun 2009. Performed By: #### H BA1E #### [address] [address] LIPID PANEL (CORONARY RISK 2 )on 12-24-2022 Cholesterol [Mass/Vol] 111 mg/dL Normal 0 - 199 [facility] Comment on above: Result Comment: . AGE [...] dosing. Performed By: #### C RP #### [address] [address] Cholesterol in HDL [Mass/Vol] 39.0 mg/dL Abnormal [facility] Comment on above: Result Comment: . AGE VERY LOW LOW NORMAL HIGH 0-19 Y < 35 < 40 40-45 ---- 20-24 Y ---- < 40 >45 ---- >24 Y ---- < 40 40-60 >60 . Performed By: #### C RP #### [address] [address] Cholesterol in LDL [Mass/Vol] 47 mg/dL Normal 0 - 99 [facility] Comment on above: Result Comment: . NEAR BORD AGE DESIRABLE OPTIMAL HIGH HIGH VERY HIGH 0-19 Y 0 - 109 --- 110-129 >/= 130 ---- 20-24 Y 0 - 119 --- 120-159 >/= 160 ---- >24 Y 0 - 99 100-129 130-159 160-189 >/=190 . Performed By: #### C RP #### [address] [address] Cholesterol in VLDL [Mass/Vol] 25 mg/dL Normal 0 - 40 [facility] Comment on above: Performed By: #### C RP #### [address] [address] Cholesterol.total/Cho lesterol in HDL [Mass ratio] 2.8 {ratio} Normal [facility] Comment on above: Result Comment: REF VALUES DESIRABLE < 3.4 HIGH RISK > 5.0 Performed By: #### C RP #### [address] [address] Triglyceride [Mass/Vol] 123 mg/dL Normal 0 - 149 [facility] Comment on above: Result Comment: . AGE [...] dosing. Performed By: #### C RP #### [address] [address] TSHon 12-24-2022 TSH Qn 1.68 m[IU]/L Normal 0.44 - 3.98 [facility] Comment on above: Result Comment: TSH testing is performed using different testing methodology at [facility] than at other [facility]. Direct result comparisons should only be made within the same method. Performed By: #### T SH2 #### [address] [address] Tobacco Screening.on 023 Adult depression screening assessment No [employer] [facility] Work Phone: Fall risk assessment a) No falls within the last year [employer] [facility] Work Phone: Tobacco use status [facility]PH[facility] b) No [employer] [facility] Work Phone: COMPREHENSIVE PANELon 12-29- 2022 Albumin [Mass/Vol] 4.1 g/dL Normal 3.4 - 5.0 [facility] Comment on above: Performed By: #### C MP #### [address] [address] ALP [Catalytic activity/Vol] 68 U/L Normal 33 - 136 [facility] Comment on above: Performed By: #### C MP #### [address] [address] ALT [Catalytic activity/Vol] 9 U/L Low 10 - 52 [facility] Comment on above: Result Comment: Camelia ents treated with Sulfasalazine may generate falsely decreased results for ALT. Performed By: #### C MP #### [address] [address] Anion gap [Moles/Vol] 10 mmol/L Normal 10 - 20 [facility] Comment on above: Performed By: #### C MP #### [address] [address] AST [Catalytic activity/Vol] 14 U/L Normal 9 - 39 [facility] Comment on above: Performed By: #### C MP #### [address] [address] Bilirubin [Mass/Vol] 0.6 mg/dL Normal 0.0 - 1.2 [facility] Comment on above: Performed By: #### C MP #### [address] [address] Calcium [Mass/Vol] 9.2 mg/dL Normal 8.6 - 10.3 [facility] Comment on above: Performed By: #### C MP #### [address] [address] Chloride [Moles/Vol] 101 mmol/L Normal 98 - 107 [facility] Comment on above: Performed By: #### C MP #### [address] [address] Creatinine [Mass/Vol] 1.15 mg/dL Normal 0.50 - 1.30 [facility] Comment on above: Performed By: #### C MP #### [address] [address] GFR/1.73 sq M.predicted among non-blacks MDRD (S/P/Bld) [Vol rate/Area] 67 mL/min/{1.73_m2} Normal >90 [facility] Comment on above: Result Comment: CALC ULATIONS OF ESTIMATED GFR ARE PERFORMED USING THE 2020 CKD-EPI STUDY REFIT EQUATION WITHOUT THE RACE VARIABLE FOR THE IDMS-TRACEABLE CREATININE METHODS. https://jasn.asnjournals.org/content/early//ASN.312651 8935 Performed By: #### C MP #### [address] [address] Glucose [Mass/Vol] 106 mg/dL High 74 - 99 [facility] Comment on above: Performed By: #### C MP #### [address] [address] HCO3 (Bld) [Moles/Vol] 32 mmol/L Normal 21 - 32 [facility] Comment on above: Performed By: #### C MP #### [address] [address] Potassium [Moles/Vol] 3.7 mmol/L Normal 3.5 - 5.3 [facility] Comment on above: Performed By: #### C MP #### [address] [address] Protein [Mass/Vol] 7.2 g/dL Normal 6.4 - 8.2 [facility] Comment on above: Performed By: #### C MP #### [address] [address] Sodium [Moles/Vol] 139 mmol/L Normal 136 - 145 [facility] Comment on above: Performed By: #### C MP #### [address] [address] Urea nitrogen [Mass/Vol] 22 mg/dL Normal 6 - 23 [facility] Comment on above: Performed By: #### C MP #### [address] [address] HEMOGLOBIN A1Con 06-26-2022 Glucose [Mass/Vol] 154 mg/dL Normal [facility] Comment on above: Performed By: #### H BA1E #### [address] [address] HbA1c (Bld) [Mass fraction] 7.0 % Abnormal [facility] Comment on above: Result Comment: Diag nosis of Diabetes-Adults Non-Diabetic: < or = 5.6% Increased risk for developing diabetes: 5.7-6.4% Diagnostic of diabetes: > or = 6.5% . Monitoring of Diabetes Age (y) Therapeutic Goal (%) Adults: >18 <7.0 Pediatrics: 13-18 <7.5 7-12 <8.0 0- 6 7.5-8.5 [employer]. Diabetes Care 33(S1), Jun 2009. Performed By: #### H BA1E #### [address] [address] Hemoglobin A1Con 06-26-2022 Glucose [Mass/Vol] 154 mg/dL [facility] Work Phone: HbA1c (Bld) [Mass fraction] 7.0 % Abnormal [facility] Work Phone: Comment on above: Diagnosis of Diabete s-Adults Non-Diabetic: < or = 5.6% Increased risk for developing diabetes: 5.7-6.4% Diagnostic of diabetes: > or = 6.5%. Monitoring of Diabetes Age (y) Therapeutic Goal (%) Adults: >18 <7.0 Pediatrics: 13-18 <7.5 7-12 <8.0 0- 6 7.5-8.5 [employer]. Diabetes Care 33(S1), Jun 2009. LDL, DIRECTon 06-26-2022 Cholesterol in LDL [Mass/Vol] 69 mg/dL Normal 0 - 129 [facility] Comment on above: Result Comment: Elev ated levels of LDL cholesterol are recognized as a lopez factor in the development of atherosclerosis and CHD. The direct LDL cholesterol test can be used to assess cardiovascular risk and monitor therapy as a follow up to a lipid profile when triglycerides are significantly elevated. Performed By: #### L DLDI #### [facility] [address] [place] [address] LDL, Direct, Serumon 022 Cholesterol in LDL [Mass/Vol] 69 mg/dL 0 - 129 -[employer] [facility] Work Phone: Comment on above: Elevated levels [...] dye [Mass/Vol] 4.1 g/dL 3.4 - 5.0 MP-[employer] [facility] Work Phone: ALP [Catalytic activity/Vol] 68 U/L 33 - 136 [facility] [employer] [facility] Work Phone: ALT With P-5'-P [Catalytic activity/Vol] 9 U/L below low threshold 10 - 52 [facility] Work Phone: Comment on above: Patients treated wit h Sulfasalazine may generate falsely decreased results for ALT. Anion gap [Moles/Vol] 10 mmol/L 10 - 20 - [employer] [facility] Work Phone: AST With P-5'-P [Catalytic activity/Vol] 14 U/L 9 - 39 [facility] [employer] [facility] Work Phone: Bilirubin [Mass/Vol] 0.6 mg/dL 0.0 - 1.2 - [employer] [facility] Work Phone: Calcium [Mass/Vol] 9.2 mg/dL 8.6 - 10.3 -[facility] ical [employer] [facility] Work Phone: Chloride [Moles/Vol] 101 mmol/L 98 - 107 - edical [employer] [facility] Work Phone: CO2 [Moles/Vol] 32 mmol/L 21 - 32 -Medica l [employer] [facility] Work Phone: Creatinine [Mass/Vol] 1.15 mg/dL See Below Recommendi [facility] Work Phone: Comment on above: Reference Range: 0.5 0 - 1.30 Glucose [Mass/Vol] 106 mg/dL above high threshold 74 - 99 [facility] [employer] [facility] Work Phone: Potassium [Moles/Vol] 3.7 mmol/L 3.5 - 5.3 [facility] Work Phone: Protein [Mass/Vol] 7.2 g/dL 6.4 - 8.2 [employer] [facility] Work Phone: Sodium [Moles/Vol] 139 mmol/L 136 - 145 [employer] [facility] Work Phone: Urea nitrogen [Mass/Vol] 22 mg/dL 6 - 23 [facility] Work Phone: No Panel Informationon 06-26 67 {mL/min/1.73m2} >90 [employer] [facility] Work Phone: Comment on above: CALCULATIONS OF ROD MATED GFR ARE PERFORMED USING THE 2020 CKD-EPI STUDY REFIT EQUATION WITHOUT THE RACE VARIABLE FOR THE IDMS-TRACEABLE CREATININE METHODS.https://jasn.asnjournals.org/content// N.3453851604 PROSTATE SPEC.AG,SCREENon PROSTATE SPEC.AG,SCREEN 2.58 ng/mL Normal 0.00 - 4.00 [facility] Comment on above: Result Comment: The FDA requires that the method used for PSA assay be reported to the physician. Values obtained with different assay methods must not be used interchangeably. This test was performed at [facility] using the [employer] PSA assay is a two-site immunoenzymatic sandwich assay. The assay is approved for measurement of prostate-specific antigen (PSA)in serum and may be used in conjunction with a digital rectal examination in men 50 years and older as an aid in detection of prostate cancer. 7-Lzrgw-rpfdylctu inhibitors (e.g. Proscar, Finasteride, Avodart, Dutasteride and Chante) for the treatment of BPH have been shown to lower PSA levels by an average of 50% after 6 months of treatment. Performed By: #### C RP #### [facility] [address] [place] [address] Prostate Spec.Ag, Screenon 1 Prostate specific Ag [Mass/Vol] 2.58 ng/mL See Below [facility] Work Phone: Comment on above: Reference Range: 0.0 0 - 4.00The FDA requires that the method used for PSA assay be reported to the physician. Values obtained with different assay methods must not be used interchangeably. This testwas performed at [facility] using the [employer] PSA assay is a two-site immunoenzymatic sandwich assay. The assay is approved for measurement of prostate-specific antigen (PSA)in serum and may be used in conjunction with a digital rectal examination in men 50 years and older as an aid in detection of prostate cancer.0-Erkga-dvekxxsxt inhibitors (e.g. Proscar, Finasteride, Avodart, Dutasteride and [...] PRESCRIBED; DENIES NEEDING REFILLS TODAY. 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 PATIENT DENIES NUMBNESS/PINS AND NEEDLES OR WEAKNESS. [...] History of Appendectomy History of Cardiac catheterization [facility], less than 70% stenosis, no stent History of Colonoscopy [place], 2018, +polyp (3 years) History of Knee replacement right knee per [facility] no details o (more content not included)... 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 COMPARISON: None. 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 COMPARISON: None. ACCESSION NUMBER(S): [id number] ORDERING CLINICIAN: TAMARA SESAY TECHNIQUE: Sagittal and [...] foraminal narrowing. THIS EXAMINATION WAS INTERPRETED AT [facility] Electronically signed by: MICHELLE BLANCO MD Normal [facility] C Reactive Protein, Serumon 04-14-2022 CRP [Mass/Vol] 0.42 mg/dL -[facility] Work Phone: Comment on above: REF VALUE< 1.00 C-REACTIVE PROTEINon 022 C-REACTIVE PROTEIN 0.42 mg/dL Normal [facility] Comment on above: Result Comment: REF VALUE < 1.00 Performed By: #### C RP #### [id number] [place] [address] Initial Visit (Pain Medicine )on 04-14-2022 Initial [...] or Bone Graft Simulator, Implanted Breast Tissue Bag Tester, Glucose Monitor, or Neulasta Device? : No What are the patient's signs and symptoms? : pain MRI T Spine without Contrast; Status:Hold For - Scheduling; Requested for:14Apr2022; Radiologist to Determine Optimal Study : Y Does the patient have a Cochlear Implant, Pacemaker, Defibrilator, Pacing Wire, Brain Aneurysm Clip, Implanted Nerve or Bone Graft Simulator, Implanted Breast Tissue Bag Tester, Glucose Monitor, or Neulasta Device? : No [...] 24 mm/h High 0 - 20 [facility] Comment on above: Performed By: #### E SRWS #### [address] [address] Sedimentation Rate, Erythroc yteon 04-14-2022 ESR (Bld) [Velocity] 24 mm/h above high threshold 0 - 20 [facility] Phone: Office Visit (Primary Care T xt/Forms)on [...] has an appointment to follow-up with his computer support technician in the next week or 2, [...] Xray T (more content not included)... Normal [facility] Radiologyon 03-26-2022 XR Thoracic spine 3 Views Normal [facility] Work Phone: SPINE, THORACIC, 3 VIEWSon 0 03-26-2022 SPINE, THORACIC, 3 VIEWS Patient Name: DIPTI SIERRA STUDY: SPINE, THORACIC, 3 VIEWS; ; 03/26/2022 9:43 am INDICATION: chest wall pain R07.89: Right-sided chest wall pain. COMPARISON: None. ACCESSION NUMBER(S): [id number] ORDERING CLINICIAN: DAYAMI ROE FINDINGS: Thoracic kyphosis [...] Electronically signed by: CRISTOBAL COTTO MD Normal [facility] Office Visit (Primary Care T xt/Forms)on 03-25-2022 Follow-up visit Diagnoses/Problems Assessed Right-sided chest wall pain (786.52) (R07.89) Orders Right-sided chest wall pain Start: Gabapentin 300 MG Oral Capsule; take 1 capsule by mouth once daily Xray Thoracic Spine 3 View; Status:Hold For - Scheduling; Requested for:[id number]; Radiologist to Determine Optimal Study : Y What are the patient's signs and symptoms? : chest wall pain Pain Management Referral Evaluation and Treatment Evaluate AND Treat Status: Hold For - Scheduling Requested for: [id number] Start: Meloxicam 15 MG Oral Tablet; TAKE [...] Allergies Medication metformin Vitals Vital Signs Recorded: [id number] 03:41PM Heart Rate: 97 Systolic: 140 Diastolic: 60 Height: 5 ft 7 in Weight: 238 lb 9 oz BMI Calculated: (more content not included)... Normal [facility] CT ABDOMEN AND PELVIS W IV C [facility] 03-13-2022 CT ABDOMEN AND PELVIS W IV CONTRAST Patient Name: DIPTI SIERRA STUDY: CT ABDOMEN AND PELVIS W IV CONTRAST; 03/13/2022 2:37 pm INDICATION: RUQ abdominal pain K21.9: GERD (gastroesophageal reflux disease) R10.11: Abdominal pain, RUQ (right upper quadrant). COMPARISON: None. ACCESSION NUMBER(S): [id number] ORDERING CLINICIAN: DAYAMI ROE TECHNIQUE: Contiguous axial [...] as stated. This study was interpreted at [place], [place]. Electronically signed by: BRENDA LAY MD [facility] CT Abdomen and Pelvis with I V Contraston 03-13-2022 CT Abdomen and Pelvis W contrast IV Normal [facility] Work Phone: BILIARY WITH EF W OR W/O CCK on 03-07-2022 BILIARY WITH EF W OR W/O CCK Patient Name: DIPTI SIERRA STUDY: BILIARY WITH EF W OR W/O CCK; 03/07/2022 10:35 am INDICATION: RUQ abdominal pain, neg US K21.9: GERD (gastroesophageal reflux disease) R10.11: Abdominal pain, RUQ (right upper quadrant). COMPARISON: Gallbladder ultrasound 03/07/2022 ACCESSION NUMBER(S): [id number] ORDERING CLINICIAN: DAYAMI ROE TECHNIQUE: DIVISION OF [...] as stated. This study was interpreted at [place], [place]. Electronically signed by: PROSPER RAMOS MD Normal [facility] PANELon 2021 Albumin [Mass/Vol] 4.0 g/dL Normal 3.4 - 5.0 [facility] Comment on above: Performed By: #### C RP #### [address] [address] ALP [Catalytic activity/Vol] 73 U/L Normal 33 - 136 [facility] Comment on above: Performed By: #### C RP #### [address] [address] ALT [Catalytic activity/Vol] 14 U/L Normal 10 - 52 [facility] Comment on above: Result Comment: Camelia ents treated with Sulfasalazine may generate falsely decreased results for ALT. Performed By: #### C RP #### [address] [address] Anion gap [Moles/Vol] 11 mmol/L Normal 10 - 20 [facility] Comment on above: Performed By: #### C RP #### [address] [address] AST [Catalytic activity/Vol] 17 U/L Normal 9 - 39 [facility] Comment on above: Performed By: #### C RP #### [address] [address] Bilirubin [Mass/Vol] 0.6 mg/dL Normal 0.0 - 1.2 [facility] Comment on above: Performed By: #### C RP #### [address] [address] Calcium [Mass/Vol] 8.8 mg/dL Normal 8.6 - 10.3 [facility] Comment on above: Performed By: #### C RP #### [address] [address] Chloride [Moles/Vol] 99 mmol/L Normal 98 - 107 [facility] Comment on above: Performed By: #### C RP #### [address] [address] Creatinine [Mass/Vol] 1.15 mg/dL Normal 0.50 - 1.30 [facility] Comment on above: Performed By: #### C RP #### [address] [address] GFR/1.73 sq M.predicted among non-blacks MDRD (S/P/Bld) [Vol rate/Area] 67 mL/min/{1.73_m2} Normal >90 [facility] Comment on above: Result Comment: CALC ULATIONS OF ESTIMATED GFR ARE PERFORMED USING THE 2020 CKD-EPI STUDY REFIT EQUATION WITHOUT THE RACE VARIABLE FOR THE IDMS-TRACEABLE CREATININE METHODS. https://jasn.asnjournals.org/content/early//ASN.268735 6479 Performed By: #### C RP #### [address] [address] Glucose [Mass/Vol] 155 mg/dL High 74 - 99 [facility] Comment on above: Performed By: #### C RP #### [address] [address] HCO3 (Bld) [Moles/Vol] 28 mmol/L Normal 21 - 32 [facility] Comment on above: Performed By: #### C RP #### [address] [address] Potassium [Moles/Vol] 3.6 mmol/L Normal 3.5 - 5.3 [facility] Comment on above: Performed By: #### C RP #### [address] [address] Protein [Mass/Vol] 6.9 g/dL Normal 6.4 - 8.2 [facility] Comment on above: Performed By: #### C RP #### [address] [address] Sodium [Moles/Vol] 134 mmol/L Low 136 - 145 [facility] Comment on above: Performed By: #### C RP #### [address] [address] Urea nitrogen [Mass/Vol] 23 mg/dL Normal 6 - 23 [facility] Comment on above: Performed By: #### C RP #### [address] [address] Laboratory - Chemistry and C hemistry - challengeon 03-07-2022 Albumin BCP dye [Mass/Vol] 4.0 g/dL 3.4 - 5.0 -[facility] Work Phone: [phone] ALP [Catalytic activity/Vol] 73 U/L 33 - 136 [facility] Work Phone: ALT With P-5'-P [Catalytic activity/Vol] 14 U/L 10 - 52 [facility] Work Phone: Comment on above: Patients treated wit h Sulfasalazine may generate falsely decreased results for ALT. Anion gap [Moles/Vol] 11 mmol/L 10 - 20 - [facility] Work Phone: AST With P-5'-P [Catalytic activity/Vol] 17 U/L 9 - 39 -[facility] Work Phone: Bilirubin [Mass/Vol] 0.6 mg/dL 0.0 - 1.2 [employer] [facility] Work Phone: Calcium [Mass/Vol] 8.8 mg/dL 8.6 - 10.3 -[facility] ical [facility] Work Phone: Chloride [Moles/Vol] 99 mmol/L 98 - 107 - edical [facility] Work Phone: CO2 [Moles/Vol] 28 mmol/L 21 - 32 [facility] Work Phone: Creatinine [Mass/Vol] 1.15 mg/dL See Below Recommendi [facility] Work Phone: Comment on above: Reference Range: 0.5 0 - 1.30 Glucose [Mass/Vol] 155 mg/dL above high threshold 74 - 99 [facility] Work Phone: Potassium [Moles/Vol] 3.6 mmol/L 3.5 - 5.3 [employer] [facility] Work Phone: Protein [Mass/Vol] 6.9 g/dL 6.4 - 8.2 [employer] [facility] Work Phone: Sodium [Moles/Vol] 134 mmol/L below low threshold 136 - 145 [facility] Work Phone: Urea nitrogen [Mass/Vol] 23 mg/dL 6 - 23 [facility] Work Phone: NM Biliary with EF w/wo CCKo n 03-07-2022 NM Biliary with EF w/wo CCK Normal [facility] Work Phone: No Panel Informationon 03-07 67 {mL/min/1.73m2} >90 [employer] [facility] Work Phone: Comment on above: CALCULATIONS OF ROD MATED GFR ARE PERFORMED USING THE 2020 CKD-EPI STUDY REFIT EQUATION WITHOUT THE RACE VARIABLE FOR THE IDMS-TRACEABLE CREATININE METHODS.https://jasn.asnjournals.org/content/early/ N.7031829636 Radiologyon 02-26-2022 US Gallbladder Normal [facility] Work Phone: US GALLBLADDERon 02-26-2022 US GALLBLADDER Patient Name: DIPTI SIERRA STUDY: US GALLBLADDER 02/26/2022 7:14 am INDICATION: 76 y/o M with RUQ abdominal pain R10.11: Abdominal pain, RUQ (right upper quadrant). COMPARISON: None. ACCESSION NUMBER(S): [id number] ORDERING CLINICIAN: DAYAMI ROE TECHNIQUE: Routine ultrasound [...] quadrant. Electronically signed by: VALENTINA SIDDIQUI MD [facility] Office Visit (Primary Care T xt/Forms)on 02-21-2022 Follow-up visit Diagnoses/Problems Assessed GERD (gastroesophageal reflux disease) (530.81) (K21.9) Abdominal pain, RUQ (right upper quadrant) (789.01) (R10.11) Orders Abdominal pain, RUQ (right upper quadrant) Ultrasound Gallbladder; Status:Hold For - Scheduling; Requested for:[id number]; Radiologist to Determine Optimal Study : Y [...] Allergies Medication metformin Vitals Vital Signs Recorded: [id number] 11:25AM Heart Rate: 80 Systolic: 140 Diastolic: [...] shortness of breath, start metoprolol and see computer support technician next week Provider Impressions Provider Impressions [...] and change in exercise tolerance to see Javascript Web Developer on January 28 at [facility] went to ER at [place] after, gave MDI to use, has not [...] EACH NOSTRIL (more content not included)... Normal [facility] Tobacco Screening.on 022 Adult depression screening assessment No [employer] [facility] Work Phone: Fall risk assessment a) No falls within the last year [employer] [facility] Work Phone: Tobacco use status [facility]PH[facility] b) No [employer] 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 Normal 0.0 - 30.0 [facility] Comment on above: Performed By: #### A LBSP #### [address] [address] CREATININE,URINE 131.0 mg/dL Normal 20.0 - 370.0 [facility] Comment on above: Performed By: #### A LBSP #### [address] [address] COMPREHENSIVE PANELon 2021 Albumin [Mass/Vol] 4.1 g/dL Normal 3.4 - 5.0 [facility] Comment on above: Performed By: #### C RP #### [address] [address] ALP [Catalytic activity/Vol] 66 U/L Normal 33 - 136 [facility] Comment on above: Performed By: #### C RP #### [address] [address] ALT [Catalytic activity/Vol] 11 U/L Normal 10 - 52 [facility] Comment on above: Result Comment: Camelia ents treated with Sulfasalazine may generate falsely decreased results for ALT. Performed By: #### C RP #### [address] [address] Anion gap [Moles/Vol] 12 mmol/L Normal 10 - 20 [facility] Comment on above: Performed By: #### C RP #### [address] [address] AST [Catalytic activity/Vol] 14 U/L Normal 9 - 39 [facility] Comment on above: Performed By: #### C RP #### [address] [address] Bilirubin [Mass/Vol] 0.6 mg/dL Normal 0.0 - 1.2 [facility] Comment on above: Performed By: #### C RP #### [address] [address] Calcium [Mass/Vol] 9.0 mg/dL Normal 8.6 - 10.3 [facility] Comment on above: Performed By: #### C RP #### [address] [address] Chloride [Moles/Vol] 102 mmol/L Normal 98 - 107 [facility] Comment on above: Performed By: #### C RP #### [address] [address] Creatinine [Mass/Vol] 1.10 mg/dL Normal 0.50 - 1.30 [facility] Comment on above: Performed By: #### C RP #### [address] [address] GFR/1.73 sq M.predicted among non-blacks MDRD (S/P/Bld) [Vol rate/Area] 70 mL/min/{1.73_m2} Normal >90 [facility] Comment on above: Result Comment: CALC ULATIONS OF ESTIMATED GFR ARE PERFORMED USING THE 2020 CKD-EPI STUDY REFIT EQUATION WITHOUT THE RACE VARIABLE FOR THE IDMS-TRACEABLE CREATININE METHODS. https://jasn.asnjournals.org/content/early/ASN.007827 1851 Performed By: #### C RP #### [address] [address] Glucose [Mass/Vol] 108 mg/dL High 74 - 99 [facility] Comment on above: Performed By: #### C RP #### [address] [address] HCO3 (Bld) [Moles/Vol] 29 mmol/L Normal 21 - 32 [facility] Comment on above: Performed By: #### C RP #### [address] [address] Potassium [Moles/Vol] 3.9 mmol/L Normal 3.5 - 5.3 [facility] Comment on above: Performed By: #### C RP #### [address] [address] Protein [Mass/Vol] 7.1 g/dL Normal 6.4 - 8.2 [facility] Comment on above: Performed By: #### C RP #### [address] [address] Sodium [Moles/Vol] 139 mmol/L Normal 136 - 145 [facility] Comment on above: Performed By: #### C RP #### [address] [address] Urea nitrogen [Mass/Vol] 20 mg/dL Normal 6 - 23 [facility] Comment on above: Performed By: #### C RP #### [address] [address] HEMOGLOBIN A1Con 01-15-2022 Glucose [Mass/Vol] 157 mg/dL Normal [facility] Comment on above: Performed By: #### C RP #### [address] [address] HbA1c (Bld) [Mass fraction] 7.1 % Abnormal [facility] Comment on above: Result Comment: Diag nosis of Diabetes-Adults Non-Diabetic: < or = 5.6% Increased risk for developing diabetes: 5.7-6.4% Diagnostic of diabetes: > or = 6.5% . Monitoring of Diabetes Age (y) Therapeutic Goal (%) Adults: >18 <7.0 Pediatrics: 13-18 <7.5 7-12 <8.0 0- 6 7.5-8.5 [employer]. Diabetes Care 33(S1), Jun 2009. Performed By: #### C RP #### [facility] [address] [place] [address] Hemoglobin A1Con 01-15-2022 Glucose [Mass/Vol] 157 mg/dL [employer] [facility] Work Phone: HbA1c (Bld) [Mass fraction] 7.1 % Abnormal [employer] [facility] Work Phone: Comment on above: Diagnosis of Diabete s-Adults Non-Diabetic: < or = 5.6% Increased risk for developing diabetes: 5.7-6.4% Diagnostic of diabetes: > or = 6.5%. Monitoring of Diabetes Age (y) Therapeutic Goal (%) Adults: >18 <7.0 Pediatrics: 13-18 <7.5 7-12 <8.0 0- 6 7.5-8.5 [employer]. Diabetes Care 33(S1), Jun 2009. LIPID PANEL (CORONARY RISK 2 )on 01-15-2022 Cholesterol [Mass/Vol] 128 mg/dL Normal 0 - 199 [facility] Comment on above: Result Comment: . AGE [...] dosing. Performed By: #### C RP #### [address] [address] Cholesterol in HDL [Mass/Vol] 44.0 mg/dL Normal [facility] Comment on above: Result Comment: . AGE VERY LOW LOW NORMAL HIGH 0-19 Y < 35 < 40 40-45 ---- 20-24 Y ---- < 40 >45 ---- >24 Y ---- < 40 40-60 >60 . Performed By: #### C RP #### [address] [address] Cholesterol in LDL [Mass/Vol] 57 mg/dL Normal 0 - 99 [facility] Comment on above: Result Comment: . NEAR BORD AGE DESIRABLE OPTIMAL HIGH HIGH VERY HIGH 0-19 Y 0 - 109 --- 110-129 >/= 130 ---- 20-24 Y 0 - 119 --- 120-159 >/= 160 ---- >24 Y 0 - 99 100-129 130-159 160-189 >/=190 . Performed By: #### C RP #### [address] [address] Cholesterol in VLDL [Mass/Vol] 27 mg/dL Normal 0 - 40 [facility] Comment on above: Performed By: #### C RP #### [address] [address] Cholesterol.total/Cho lesterol in HDL [Mass ratio] 2.9 {ratio} Normal [facility] Comment on above: Result Comment: REF VALUES DESIRABLE < 3.4 HIGH RISK > 5.0 Performed By: #### C RP #### [address] [address] Triglyceride [Mass/Vol] 135 mg/dL Normal 0 - 149 [facility] Comment on above: Result Comment: . AGE [...] Metamizole dosing. Performed By: #### C #### [facility] [address] [place] [address] Laboratory - Chemistry and C hemistry - challengeon 01-15-2022 Albumin BCP dye [Mass/Vol] 4.1 g/dL 3.4 - 5.0 [facility] Work Phone: Albumin Ql (U) 11.6 mg/L See Below [facility] Work Phone: Comment on above: Reference Range: Not Established Albumin/Creatinine DL <= 20 mg/L (U) [Mass ratio] 8.9 {ug/mg_crt} 0.0 - 30.0 [facility] Work Phone: ALP [Catalytic activity/Vol] 66 U/L 33 - 136 [facility] [employer] [facility] Work Phone: ALT With P-5'-P [Catalytic activity/Vol] 11 U/L 10 - 52 [employer] [facility] Work Phone: Comment on above: Patients treated wit h Sulfasalazine may generate falsely decreased results for ALT. Anion gap [Moles/Vol] 12 mmol/L 10 - 20 [employer] [facility] Work Phone: AST With P-5'-P [Catalytic activity/Vol] 14 U/L 9 - 39 [facility] Work Phone: Bilirubin [Mass/Vol] 0.6 mg/dL 0.0 - 1.2 [facility] [employer]ical [employer] [facility] Work Phone: Calcium [Mass/Vol] 9.0 mg/dL 8.6 - 10.3 [facility] ical [employer] [facility] Work Phone: Chloride [Moles/Vol] 102 mmol/L 98 - 107 [facility] [employer] [facility] Work Phone: CO2 [Moles/Vol] 29 mmol/L 21 - 32 -[facility] Work Phone: Creatinine (U) [Mass/Vol] 131.0 mg/dL See Below [facility] Work Phone: Comment on above: Reference Range: 20. 0 - 370.0 Creatinine [Mass/Vol] 1.10 mg/dL See Below [facility] [employer] [facility] Work Phone: Comment on above: Reference Range: 0.5 0 - 1.30 Glucose [Mass/Vol] 108 mg/dL above high threshold 74 - 99 [facility] Work Phone: Potassium [Moles/Vol] 3.9 mmol/L 3.5 - 5.3 [facility] Medical [facility] Work Phone: Protein [Mass/Vol] 7.1 g/dL 6.4 - 8.2 [employer] [facility] Work Phone: Sodium [Moles/Vol] 139 mmol/L 136 - 145 [employer] [facility] Work Phone: Urea nitrogen [Mass/Vol] 20 mg/dL 6 - 23 [facility] [place] Work Phone: Lipid Panelon 01-15-2022 Cholesterol [Mass/Vol] 128 mg/dL 0 - 199 -Medical [facility] Work Phone: Comment on above: . AGE [...] dosing. Cholesterol in HDL [Mass/Vol] 44.0 mg/dL [employer] [facility] Work Phone: Comment on above: . AGE VERY LOW LOW N ORMAL HIGH 0-19 Y < 35 < 40 40-45 ---- 20- 24 Y ---- < 40 >45 ---- >24 Y ---- < 40 40-60 >60. Cholesterol in LDL [Mass/Vol] 57 mg/dL 0 - 99 [employer] [facility] Work Phone: Comment on above: . NEAR BORD AGE HUGO RABLE OPTIMAL HIGH HIGH VERY HIGH 0-19 Y 0 - 109 --- 110-129 >/= 130 ---- 20-24 Y 0 - 119 --- 120-159 >/= 160 ---- >24 Y 0 - 99 100-129 130-159 160-189 >/=190. Cholesterol.total/Cho lesterol in HDL [Mass ratio] 2.9 {ratio} [employer] [facility] Work Phone: Comment on above: REF VALUESDESIRABLE < 3.4HIGH RISK > 5.0 Triglyceride [Mass/Vol] 135 mg/dL 0 - 149 [employer] [facility] Work Phone: Comment on above: . AGE [...] Lipid Panel 27 mg/dL 0 - 40 [employer] [employer] [facility] Work Phone: No Panel Informationon 01-15 70 {mL/min/1.73m2} >90 [employer] [facility] Work Phone: Comment on above: CALCULATIONS OF ROD MATED GFR ARE PERFORMED USING THE 2020 CKD-EPI STUDY REFIT EQUATION WITHOUT THE RACE VARIABLE FOR THE IDMS-TRACEABLE CREATININE METHODS.https://jasn.asnjournals.org/content/early/ N.4613592064 TSHon 01-15-2022 TSH Qn 1.57 m[IU]/L Normal 0.44 - 3.98 [facility] Comment on above: Result Comment: TSH testing is performed using different testing methodology at [facility] than at other [facility]. Direct result comparisons should only be made within the same method. Performed By: #### C #### [id number] [place] [address] TSH - Thyroid Stimulating Ho monse, Serumon 01-15-2022 TSH Qn 1.57 m[IU]/L See Below [facility] Work Phone: Comment on above: Reference Range: 0.4 4 - 3.98 TSH testing is performed using different testing methodology at [facility] than at [facility]. Direct result comparisons should only be made within the same method. Office Visit (Primary Care T xt/Forms)on 08-08-2021 Follow-up visit Diagnoses/Problems Assessed Finger wound, simple, open (883.0) (S61.209A) Orders Encounter for immunization Temporarily Stop: Influenza, seasonal, injectable Provider Impressions Provider Impressions Free Text Note Form: recommended soaking finger in warm h20 AND mild soap daily apply bacitracin oint, bid to wound recommended protecting tip of thumb from injury with a finger splint instructed to call if develops redness/edema/drainage from wound Chief Complaint [facility] FU L THUMB LACERATION History of Present Illness Dipti comes to office after cutting finger on Thursday w/ a table saw. Was seen @ [facility] and wound was cleansed AND he received [...] Allergies Medication metformin Vitals Vital Signs Recorded: [id number] 03:13PM Temperature: 96.8 F Heart Rate: 75 [...] steady gait. Behavior: Appropriate. Integumentary: Warm, Dry, [place], Intact. + tip of L thumb with dried dark red drainage. No circumferential redness or edema noted. No drainage noted. tenderness to touch @ tip of thumb. Neurologic: Alert, Oriented. Signatures Electronically signed by : MONTRELL Coelho; Aug 08 2021 3:40PM EST (Author) Normal [employer] Tobacco Screening.on Adult depression screening assessment No [facility] Work Phone: Fall risk assessment a) No falls within the last year [facility] Work Phone: Tobacco use status [facility] b) No [facility] [employer] [facility] Work Phone: Medicare Annual Wellness Vis iton [...] Care Team MemberRoleSpecialtyOffice Number Bhupinder RODRIGUEZ, Dayami PACErimary Care ProviderFafoxborough state hospital [phone] Roseann RODRIGUEZ, Darin Farmer Vitals Vital Signs Recorded: 25Jul2021 10:05AM Jmdtsilmsek84.2 F Heart Rate94 Systo (more content not included)... Normal [facility] Tobacco Screening.on 022 Adult depression screening assessment No [facility] Work Phone: Fall risk assessment a) No falls within the last year [facility] [employer] [facility] Work Phone: Tobacco use status [facility] b) No [employer] [facility] Work Phone: Hemoglobin A1Con 06-12-2021 Glucose [Mass/Vol] 146 mg/dL [employer] [facility] Work Phone: HbA1c (Bld) [Mass fraction] 6.7 % Abnormal [employer] [employer] [facility] Work Phone: Comment on above: Diagnosis of Diabete s-Adults Non-Diabetic: < or = 5.6% Increased risk for developing diabetes: 5.7-6.4% Diagnostic of diabetes: > or = 6.5%. Monitoring of Diabetes Age (y) Therapeutic Goal (%) Adults: >18 <7.0 Pediatrics: 13-18 <7.5 7-12 <8.0 0- 6 7.5-8.5 [employer]. Diabetes Care 33(S1), Jun 2009. LDL, Direct, Serumon 021 Cholesterol in LDL [Mass/Vol] 74 mg/dL 0 - 129 [employer] [employer] [facility] Work Phone: Comment on above: Elevated levels [...] dye [Mass/Vol] 4.0 g/dL 3.4 - 5.0 [employer] [facility] Work Phone: ALP [Catalytic activity/Vol] 65 U/L 33 - 136 -[facility] Work Phone: ALT With P-5'-P [Catalytic activity/Vol] 12 U/L 10 - 52 [facility] Work Phone: Comment on above: Patients treated wit h Sulfasalazine may generate falsely decreased results for ALT. Anion gap [Moles/Vol] 9 mmol/L below low threshold 10 - 20 -[facility] Work Phone: AST With P-5'-P [Catalytic activity/Vol] 16 U/L 9 - 39 [facility] Work Phone: Bilirubin [Mass/Vol] 0.7 mg/dL 0.0 - 1.2 [facility] Work Phone: Calcium [Mass/Vol] 9.2 mg/dL 8.6 - 10.3 -[facility] Work Phone: Chloride [Moles/Vol] 101 mmol/L 98 - 107 [facility] [employer] [facility] Work Phone: CO2 [Moles/Vol] 30 mmol/L 21 - 32 [facility] l [facility] Work Phone: Creatinine [Mass/Vol] 0.95 mg/dL See Below - [facility] Work Phone: Comment on above: Reference Range: 0.5 0 - 1.30 Glucose [Mass/Vol] 132 mg/dL above high threshold 74 - 99 -[facility] Work Phone: Potassium [Moles/Vol] 4.0 mmol/L 3.5 - 5.3 - [facility] Work Phone: Protein [Mass/Vol] 7.2 g/dL 6.4 - 8.2 -[facility] Work Phone: Sodium [Moles/Vol] 136 mmol/L 136 - 145 [employer] [facility] Work Phone: Urea nitrogen [Mass/Vol] 16 mg/dL - [employer] [facility] Work Phone: No Panel Informationon 06-12 >60 >60 [facility] [employer] [facility] Work Phone: Comment on above: CALCULATIONS OF ROD MATED GFR ARE PERFORMED USING THE MDRD STUDY EQUATION FOR THE IDMS-TRACEABLE CREATININE METHODS. CLIN CHEM 2007;53:766-72 Prostate Spec.Ag, Screenon 1 08-13-2020 Prostate specific Ag [Mass/Vol] 3.39 ng/mL See Below [employer] [facility] Work Phone: Comment on above: Reference Range: 0.0 0 - 4.00The FDA requires that the method used for PSA assay be reported to the physician. Values obtained with different assay methods must not be used interchangeably. This testwas performed at [facility] using the [employer] PSA assay is a two-site immunoenzymatic sandwich assay. The assay is approved for measurement of prostate-specific antigen (PSA)in serum and may be used in conjunction with a digital rectal examination in men 50 years and older as an aid in detection of prostate cancer.9-Lqlqt-tunukqike inhibitors (e.g. Proscar, Finasteride, Avodart, Dutasteride and Chante) for the treatment of BPH have been shown to lower PSA levels by an average of 50% after 6 months of treatment. Tobacco Screening.on 021 Fall risk assessment a) No falls within the last year [employer] [facility] Work Phone: Tobacco use status [facility] b) No [employer] [employer] [facility] Work Phone: Hemoglobin A1Con 12-19-2020 Glucose [Mass/Vol] 123 mg/dL [employer] [facility] Work Phone: HbA1c (Bld) [Mass fraction] 5.9 % [employer] [facility] Work Phone: Comment on above: Diagnosis of Diabete s-Adults Non-Diabetic: < or = 5.6% Increased risk for developing diabetes: 5.7-6.4% Diagnostic of diabetes: > or = 6.5%. Monitoring of Diabetes Age (y) Therapeutic Goal (%) Adults: >18 <7.0 Pediatrics: 13-18 <7.5 7-12 <8.0 0- 6 7.5-8.5 [employer]. Diabetes Care 33(S1), Jun 2009. Laboratory - Chemistry and C hemistry - challengeon 12-19-2020 Albumin BCP dye [Mass/Vol] 4.3 g/dL 3.4 - 5.0 MP[facility] [employer] [facility] Work Phone: ALP [Catalytic activity/Vol] 73 U/L 33 - 136 -Medical [employer] [facility] Work Phone: ALT With P-5'-P [Catalytic activity/Vol] 15 U/L 10 - 52 [employer] [facility] Work Phone: Comment on above: Patients treated wit h Sulfasalazine may generate falsely decreased results for ALT. Anion gap [Moles/Vol] 9 mmol/L below low threshold 10 - 20 [facility] [employer] [facility] Work Phone: AST With P-5'-P [Catalytic activity/Vol] 17 U/L 9 - 39 -Medical [employer] [facility] Work Phone: Bilirubin [Mass/Vol] 0.8 mg/dL 0.0 - 1.2 -[employer] [facility] Work Phone: Calcium [Mass/Vol] 9.6 mg/dL 8.6 - 10.3 -Med ical [employer] [facility] Work Phone: Chloride [Moles/Vol] 101 mmol/L 98 - 107 [employer] [facility] Work Phone: CO2 [Moles/Vol] 32 mmol/L 21 - 32 [facility]Med[facility] l [employer] [facility] Work Phone: Creatinine [Mass/Vol] 1.03 mg/dL See Below MP- Medical [employer] [facility] Work Phone: Comment on above: Reference Range: 0.5 0 - 1.30 Glucose [Mass/Vol] 134 mg/dL above high threshold 74 - 99 [facility] Work Phone: Potassium [Moles/Vol] 3.9 mmol/L 3.5 - 5.3 [facility] [employer] [facility] Work Phone: Protein [Mass/Vol] 7.2 g/dL 6.4 - 8.2 [employer] [facility] [employer] [facility] Work Phone: Sodium [Moles/Vol] 138 mmol/L 136 - 145 [facility] [employer] [facility] Work Phone: Urea nitrogen [Mass/Vol] 23 mg/dL 6 - 23 [facility]ENTERBridj [facility] Work Phone: Lipid Panelon 12-19-2020 Cholesterol [Mass/Vol] 134 mg/dL 0 - 199 [facility] Work Phone: Comment on above: . AGE [...] dosing. Cholesterol in HDL [Mass/Vol] 46.0 mg/dL [facility] Work Phone: Comment on above: . AGE VERY LOW LOW N ORMAL HIGH 0-19 Y < 35 < 40 40-45 ---- 20- 24 Y ---- < 40 >45 ---- >24 Y ---- < 40 40-60 >60. Cholesterol in LDL [Mass/Vol] 62 mg/dL 0 - 99 [employer] [facility] Work Phone: Comment on above: . NEAR BORD AGE HUGO RABLE OPTIMAL HIGH HIGH VERY HIGH 0-19 Y 0 - 109 --- 110-129 >/= 130 ---- 20-24 Y 0 - 119 --- 120-159 >/= 160 ---- >24 Y 0 - 99 100-129 130-159 160-189 >/=190. Cholesterol.total/Cho lesterol in HDL [Mass ratio] 2.9 {ratio} [employer] [facility] Work Phone: Comment on above: REF VALUESDESIRABLE < 3.4HIGH RISK > 5.0 Triglyceride [Mass/Vol] 129 mg/dL 0 - 149 [employer] [facility] Work Phone: Comment on above: . AGE [...] Lipid Panel 26 mg/dL 0 - 40 [employer] [facility] Work Phone: No Panel Informationon 12-19 >60 >60 [employer] [facility] Work Phone: Comment on above: CALCULATIONS OF ROD MATED GFR ARE PERFORMED USING THE MDRD STUDY EQUATION FOR THE IDMS-TRACEABLE CREATININE METHODS. CLIN CHEM 2007;53:766-72 TSH - Thyroid Stimulating Ho monse, Serumon 12-19-2020 TSH Qn 1.80 m[IU]/L See Below [employer] [facility] Work Phone: Comment on above: Reference Range: 0.4 4 - 3.98 TSH testing is performed using different testing methodology at [facility] than at [facility]. Direct result comparisons should only be made within the same method. Hep A,B, C Panelon 9 Hep A IgM Negative Normal Negative [facility] Comment on above: Performed By: #### 1 [id number] #### [facility] [id number] Hep B Core IgM Negative Normal Negative [facility] Comment on above: Performed By: #### 1 [id number] #### [facility] [employer] [address] [place], [place] [id number] Hep Bs Ag Negative Normal Negative [facility] Comment on above: Performed By: #### 1 [id number] #### [facility] [employer] [facility] [place] [address] Hep C Ab <0.1 Normal 0.0-0.9 [facility] Comment on above: Result Comment: Nega tive: < 0.8 Indeterminate: 0.8 - 0.9 Positive: > 0.9 The CDC recommends that a positive HCV antibody result be followed up with a HCV Nucleic Acid Amplification test (903984). Performed At: [facility] [address] [id number] Lasha Parmar PhD Ph:[phone] Performed By: #### 1 [id number] #### [facility] [address] [address] Auto Diffon 12-23-2018 Basophils (Bld) [#/Vol] 0.0 E3/mcL Normal 0.0-0.2 [facility] Comment on above: Order Comment: Order added by Discern Expert. Performed By: #### 1 [id number] #### [facility] [employer] [address] [place] [address] Basophils/100 WBC (Bld) 0.9 % Normal 0.0-2.0 [facility] Comment on above: Order Comment: Order added by Discern Expert. Performed By: #### 1 [id number] #### [facility] [employer] [facility] [place] [address] Eos Absolute 0.0 E3/mcL Normal 0.0-0.7 [facility] Comment on above: Order Comment: Order added by Discern Expert. Performed By: #### 1 [id number] #### [facility] [employer] [address] [place] [address] Eosinophils/100 WBC (Bld) 0.3 % Normal 0.0-11.0 [facility] Comment on above: Order Comment: Order added by Discern Expert. Performed By: #### 1 [id number] #### [facility] [address] [address] Lymphocytes (Bld) [#/Vol] 1.0 E3/mcL Low 1.2-3.4 [facility] Comment on above: Order Comment: Order added by Discern Expert. Performed By: #### 1 [id number] #### [facility] [address] [address] Lymphocytes/100 WBC (Bld) 22.0 % Normal 20.0-55.0 [facility] Comment on above: Order Comment: Order added by Discern Expert. Performed By: #### 1 [id number] #### [facility] [address] [address] [place] Absolute 0.4 E3/mcL Normal 0.0-0.7 [facility] Comment on above: Order Comment: Order added by Discern Expert. Performed By: #### 1 [id number] #### [facility] [address] [address] Monocytes/100 WBC (Bld) 9.8 % Normal 0.0-10.0 [facility] Comment on above: Order Comment: Order added by Discern Expert. Performed By: #### 1 [id number] #### [facility] [address] [address] Neutro Absolute 3.0 E3/mcL Normal 1.4-6.5 [facility] Comment on above: Order Comment: Order added by Discern Expert. Performed By: #### 1 [id number] #### [facility] [address] [address] Neutro Auto 67.0 % Normal 37.0-75.0 [facility] Comment on above: Order Comment: Order added by Discern Expert. Performed By: #### 1 [id number] #### [facility] [employer] [address] [place] [address] CBC w/ Auto Diffon 9 Erythrocyte distribution width (RBC) [Ratio] 14.7 % High 11.5-14.5 [facility] Comment on above: Performed By: #### 1 [id number] #### [facility] [address] [address] Hematocrit (Bld) [Volume fraction] 42.1 % Normal 42.0-52.0 [facility] Comment on above: Performed By: #### 1 [id number] #### [facility] [employer]fieldK[employer] [address] [place] [address] Hemoglobin (Bld) [Mass/Vol] 14.1 g/dL Normal 13.5-18.0 [facility] Comment on above: Performed By: #### 1 [id number] #### [facility] [address] [address] MCH (RBC) [Entitic mass] 29.4 pg Normal 27.0-31.0 [facility] Comment on above: Performed By: #### 1 [id number] #### [facility] [address] [address] MCHC (RBC) [Mass/Vol] 33.5 g/dL Normal 33.0-37.0 [facility] Comment on above: Performed By: #### 1 [id number] #### [facility] [address] [address] MCV (RBC) [Entitic vol] 87.8 fL Normal 78.0-100.0 [facility] Comment on above: Performed By: #### 1 [id number] #### [facility] [address] [address] Platelet mean volume (Bld) [Entitic vol] 7.6 fL Normal 7.4-11.0 [facility] Comment on above: Performed By: #### 1 [id number] #### [facility] [employer] [address] [place] [address] Platelets (Bld) [#/Vol] 247 E3/mcL Normal 130-400 [facility] Comment on above: Performed By: #### 1 [id number] #### [facility] [employer] [address] [place] [address] RBC (Bld) [#/Vol] 4.80 E6/mcL Normal 3.90-6.[address] [facility] Comment on above: Performed By: #### 1 [id number] #### [facility] [employer] [facility] [place] [address] WBC (Bld) [#/Vol] 4.5 E3/mcL Normal 3.6-11.0 [facility] Comment on above: Performed By: #### 1 [id number] #### [facility] [employer] [facility] [place] [address] CMPon 12-23-2018 Albumin [Mass/Vol] 3.9 g/dL Normal 3.4-5.[address] [facility] Comment on above: Performed By: #### 1 [id number] #### [facility] [place] [place] [address] Albumin/Globulin [Mass ratio] 1.3 {ratio} Normal 1.1-1.9 [facility] Comment on above: Performed By: #### 1 [id number] #### [facility] [address] [address] Alk Phos 73 Int._Unit/L Normal 33-136 [facility] Comment on above: Performed By: #### 1 [id number] #### [facility] [employer] [facility] [place] [address] ALT [Catalytic activity/Vol] 147 Int._Unit/L High 10-52 [facility] Comment on above: Performed By: #### 1 [id number] #### [facility] [place] [place] [address] Anion gap [Moles/Vol] 11 mmol/L Normal 10-20 [facility] Comment on above: Performed By: #### 1 [id number] #### [facility] [employer] [address] [place] [address] AST [Catalytic activity/Vol] 110 Int._Unit/L High 9-39 [facility] Comment on above: Performed By: #### 1 [id number] #### [facility] [address] [place] [address] Bili Total 0.70 mg/dL Normal 0.00-1.20 [facility] Comment on above: Performed By: #### 1 [id number] #### [facility] [employer] [address] [place] [address] Calcium [Mass/Vol] 8.8 mg/dL Normal 8.6-10.[address] [facility] Comment on above: Performed By: #### 1 [id number] #### [facility] [employer] [address] [place] [address] Chloride [Moles/Vol] 98 mmol/L Normal 98-107 [facility] Comment on above: Performed By: #### 1 [id number] #### [facility] [employer] [address] [place] [address] CO2 [Moles/Vol] 30.0 mmol/L Normal 21.0-32.[address] [facility] Comment on above: Performed By: #### 1 [id number] #### [facility] [employer] [facility] [place] [address] Creatinine [Mass/Vol] 1.0 mg/dL Normal 0.5-1.3 [facility] Comment on above: Performed By: #### 1 [id number] #### [facility] [employer] [facility] [place] [address] Globulin (S) [Mass/Vol] 3.0 g/dL Normal 2.0-4.0 [facility] Comment on above: Performed By: #### 1 [id number] #### [facility] [employer] [address] [place] [address] Glucose [Mass/Vol] 285 mg/dL High 70-[address] [facility] Comment on above: Performed By: #### 1 [id number] #### [facility] [employer] [address] [place] [address] Potassium [Moles/Vol] 3.8 mmol/L Normal 3.5-5.3 [facility] Comment on above: Performed By: #### 1 [id number] #### [facility] [employer] [address] [place] [address] Protein [Mass/Vol] 7.0 g/dL Normal 6.4-8.[address] [facility] Comment on above: Performed By: #### 1 [id number] #### [facility] [address] [place] [address] Sodium [Moles/Vol] 135 mmol/L Low 136-[address] [facility] Comment on above: Performed By: #### 1 [id number] #### [facility] [employer] [facility] [place] [address] Urea nitrogen [Mass/Vol] 23 mg/dL Normal 6-23 [facility] Comment on above: Performed By: #### 1 [id number] #### [facility] [employer] [address] [place] [address] Urea nitrogen/Creatinine [Mass ratio] 23.0 ratio Normal 5.4-30.0 [facility] Comment on above: Performed By: #### 1 [id number] #### [facility] [employer] [facility] [place] [address] Sed Rate Automatedon 019 Sed Rate Automated 40 mm/hr Normal [facility] Comment on above: Result Comment: AGE- SPECIFIC REFERENCE RANGES FOR SEDIMENTATION RATE AUTOMATED REFERENCE RANGE - MM/HR AGE MEN WOMEN 0-2 0-2 - PUBERTY 3-13 3-13 PUBERTY - 50 YRS 0-15 0-20 > 50 YRS 0-20 0-30 Performed By: #### 1 [id number] #### [facility] [employer] [address] [place] [address] eGFRon 12-23-2018 GFR/1.73 sq M predicted among non-blacks MDRD (S/P/Bld) [Vol rate/Area] mL/min/{1.73_m2} Normal [facility] Comment on above: Order Comment: Order added by Discern Expert. Performed By: #### 1 [id number] #### [facility] [employer] [address] [place] [address] CMPon 12-09-2018 Albumin [Mass/Vol] 4.0 g/dL Normal 3.4-5.[address] [facility] Comment on above: Performed By: #### 2 [id number] #### [facility] [employer] [address] [place] [address] Albumin/Globulin [Mass ratio] 1.3 {ratio} Normal 1.1-1.9 [facility] Comment on above: Performed By: #### 2 [id number] #### [facility] [employer] [address] [place] [address] Alk Phos 75 Int._Unit/L Normal 33-136 [facility] Comment on above: Performed By: #### 2 [id number] #### [facility] [employer] [address] [place] [address] ALT [Catalytic activity/Vol] 15 Int._Unit/L Normal 10-52 [facility] Comment on above: Performed By: #### 2 [id number] #### [facility] [employer] [address] [place] [address] Anion gap [Moles/Vol] 13 mmol/L Normal 10-20 [facility] Comment on above: Performed By: #### 2 [id number] #### [facility] [employer] [address] [place] [address] AST [Catalytic activity/Vol] 18 Int._Unit/L Normal 9-39 [facility] Comment on above: Performed By: #### 2 [id number] #### [facility] [employer] [address] [place] [address] 27912 Bili Total 0.53 mg/dL Normal 0.00-1.20 [facility] Comment on above: Performed By: #### 2 [id number] #### [facility] [employer] [address] [place] [address] 87526 Calcium [Mass/Vol] 9.4 mg/dL Normal 8.6-10.[address] [facility] Comment on above: Performed By: #### 2 726745 #### [facility] [employer] [address] [place] [address] 71710 Chloride [Moles/Vol] 102 mmol/L Normal 98-107 [facility] Comment on above: Performed By: #### 2 081511 #### [facility] [employer] [address] [place] [address] 41259 CO2 [Moles/Vol] 29.0 mmol/L Normal 21.0-32.[address] [facility] Comment on above: Performed By: #### 2 303092 #### [facility] [employer] [address] [place] [address] 51115 Creatinine [Mass/Vol] 1.0 mg/dL Normal 0.5-1.3 [facility] Comment on above: Performed By: #### 2 817095 #### [facility] [employer] [address] [place] [address] 36512 Globulin (S) [Mass/Vol] 3.0 g/dL Normal 2.0-4.0 [facility] Comment on above: Performed By: #### 2 941512 #### [facility] [employer] [address] [place] [address] Glucose [Mass/Vol] 167 mg/dL High 70-[address] [facility] Comment on above: Performed By: #### 2 271816 #### [facility] [employer] [facility] [place] [address] Potassium [Moles/Vol] 3.7 mmol/L Normal 3.5-5.3 [facility] Comment on above: Performed By: #### 2 108531 #### [facility] [employer] [address] [place] [address] 55239 Protein [Mass/Vol] 7.0 g/dL Normal 6.4-8.[address] [facility] Comment on above: Performed By: #### 2 993978 #### [facility] [employer] [address] [place] [address] 99926 Sodium [Moles/Vol] 140 mmol/L Normal 136-[address] [facility] Comment on above: Performed By: #### 2 837950 #### [facility] [employer] [address] [place] [address] 39426 Urea nitrogen [Mass/Vol] 24 mg/dL High 6-23 [facility] Comment on above: Performed By: #### 2 490577 #### [facility] [employer] [address] [place] [address] 48629 Urea nitrogen/Creatinine [Mass ratio] 24.0 ratio Normal 5.4-30.0 [facility] Comment on above: Performed By: #### 2 506795 #### [facility] [employer] [address] [place] [address] 56739 [id number] 12-09-2018 HbA1c (Bld) [Mass fraction] 7.3 % High 4.0-6.3 [facility] Comment on above: Performed By: #### 1 [id number] #### [facility] [address] [place] [address] 55001 Lipid Profileon 12-09-2018 Cholesterol [Mass/Vol] 163 mg/dL Normal 0-199 [facility] Comment on above: Result Comment: TOTA L CHOLEESTEROL: <200 NORMAL 200 - 239 BORDERLINE HIGH >240 HIGH Performed By: #### 3 [id number] #### [facility] [employer] [address] [place] [address] 88147 Cholesterol in HDL [Mass/Vol] 46 mg/dL Normal 40-60 [facility] Comment on above: Performed By: #### 3 [id number] #### [facility] [employer] [address] [place] [address] 66169 Cholesterol in LDL [Mass/Vol] 90 mg/dL Normal 0-130 [facility] Comment on above: Result Comment: <100 OPTIMAL 100-129 NEAR / ABOVE OPTIMAL 130-159 BORDERLINE HIGH 160-189 HIGH >190 VERY HIGH CALC LDL NOT VALID WHEN TRIGLYCERIDE IS >400 MG/DL Performed By: #### 3 [id number] #### [facility] [employer] [address] [place] [address] 23553 Cholesterol in VLDL [Mass/Vol] 27 mg/dL Normal 0-40 [facility] Comment on above: Performed By: #### 3 [id number] #### [facility] [employer] [address] [place] [address] 38293 Triglyceride [Mass/Vol] 137 mg/dL Normal 0-149 [facility] Comment on above: Result Comment: AGE DESIRABLE BORDERLINE HIGH 91 D - 9 Y 0 - 74 75 - 99 > 100 10 - 19 Y 0 - 89 90 - 129 > 130 20 -24 Y 0 - 114 115 - 149 > 150 > 25 0 - 149 150 - 199 200 - 499 Performed By: #### 3 [id number] #### [facility] [employer] [address] [place] [address] 56905 TSHon 12-09-2018 TSH Qn 1.92 mcIU/mL Normal 0.30-5.60 [facility] Comment on above: Performed By: #### 2 900968 #### [facility] [employer] [address] [place] [address] 49974 eGFRon 12-09-2018 GFR/1.73 sq M predicted among non-blacks MDRD (S/P/Bld) [Vol rate/Area] mL/min/{1.73_m2} Normal [facility] Comment on above: Order Comment: Order added by Discern Expert. Performed By: #### 1 [id number] #### [facility] [address] [place] [address] Microalb/Creat Ratioon 06-15 Creatinine [Mass/Vol] 172.0 mg/dL Normal 20.0-300.0 [facility] Comment on above: Performed By: #### 1 [id number] #### [facility] [employer] [address] [place], [place] [address] Creatinine [Mass/Vol] 4 ug/mg Normal 0-30 [facility] Comment on above: Performed By: #### 1 [id number] #### [facility] [employer] [address] [place] [address] 46350 Ur Microalbumin 0.7 mg/dL Normal 0.0-1.9 [facility] Comment on above: Performed By: #### 1 9976789 #### [facility] [employer] [address] [place] [address] CMPon 06-10-2018 Albumin [Mass/Vol] 4.4 g/dL Normal 3.4-5.[address] [facility] Comment on above: Performed By: #### 2 110651 #### [facility] [employer] [address] [place], [place] [address] Albumin/Globulin [Mass ratio] 1.4 {ratio} Normal 1.1-1.9 [facility] Comment on above: Performed By: #### 2 605087 #### [facility] [employer] [address] [place] [address] 97271 Alk Phos 64 Int._Unit/L Normal 33-136 [facility] Comment on above: Performed By: #### 2 691876 #### [facility] [employer] [address] [place] [address] 12821 ALT [Catalytic activity/Vol] 15 Int._Unit/L Normal 10-52 [facility] Comment on above: Performed By: #### 2 664071 #### [facility] [employer] [address] [place] [address] 88362 Anion gap [Moles/Vol] 10 mmol/L Normal 10-20 [facility] Comment on above: Performed By: #### 2 438496 #### [facility] [employer] [address] [place] [address] AST [Catalytic activity/Vol] 16 Int._Unit/L Normal 9-39 [facility] Comment on above: Performed By: #### 2 676718 #### [facility] [employer] [address] [place] [address] 46583 Bili Total 0.67 mg/dL Normal 0.00-1.20 [facility] Comment on above: Performed By: #### 2 580631 #### [facility] [employer] [address] [place] [address] 75878 Calcium [Mass/Vol] 9.5 mg/dL Normal 8.6-10.[address] [facility] Comment on above: Performed By: #### 2 240602 #### [facility] [employer] [address] [place] [address] 66602 Chloride [Moles/Vol] 100 mmol/L Normal 98-107 [facility] Comment on above: Performed By: #### 2 163730 #### [facility] [employer] [address] [place] [address] 07746 CO2 [Moles/Vol] 32.0 mmol/L Normal 21.0-32.[address] [facility] Comment on above: Performed By: #### 2 201446 #### [facility] [employer] [address] [place] [address] 12824 Creatinine [Mass/Vol] 1.1 mg/dL Normal 0.5-1.3 [facility] Comment on above: Performed By: #### 2 442230 #### [facility] [employer] [address] [place] [address] 20653 Globulin (S) [Mass/Vol] 3.0 g/dL Normal 2.0-4.0 [facility] Comment on above: Performed By: #### 2 241558 #### [facility] [employer] [address] [place] [address] 65299 Glucose [Mass/Vol] 147 mg/dL High 70-[address] [facility] Comment on above: Performed By: #### 2 747296 #### [facility] [employer] [address] [place] [address] 94325 Potassium [Moles/Vol] 3.8 mmol/L Normal 3.5-5.3 [facility] Comment on above: Performed By: #### 2 323431 #### [facility] [employer] [facility] [place] [address] Protein [Mass/Vol] 7.5 g/dL Normal 6.4-8.[address] [facility] Comment on above: Performed By: #### 2 529011 #### [facility] [employer] [address] [place] [address] 15036 Sodium [Moles/Vol] 138 mmol/L Normal 136-[address] [facility] Comment on above: Performed By: #### 2 676570 #### [facility] [employer] [address] [place] [address] 99231 Urea nitrogen [Mass/Vol] 22 mg/dL Normal 6-23 [facility] Comment on above: Performed By: #### 2 697989 #### [facility] [employer] [address] [place], [place] [address] Urea nitrogen/Creatinine [Mass ratio] 20.0 ratio Normal 5.4-30.0 [facility] Comment on above: Performed By: #### 2 642356 #### [facility] [employer] [address] [place], [place] [address] [id number] 06-10-2018 HbA1c (Bld) [Mass fraction] 7.0 % High 4.0-6.3 [facility] Comment on above: Performed By: #### 3 [id number] #### [facility] Chemistry Manual Subsection [address] [place] [address] 65194 LDL Directon 06-10-2018 Cholesterol in LDL [Mass/Vol] 106 mg/dL Normal 0-129 [facility] Comment on above: Result Comment: LDL CHOLESTEROL: <100 OPTIMAL 100-129 NEAR / ABOVE OPTIMAL 130-159 BORDERLINE HIGH 160-189 HIGH >190 VERY HIGH CALC LDL NOT VALID WHEN TRIGLYCERIDE IS >400 MG/DL Performed By: #### 1 1384275 #### [facility] [employer] [address] [place] [address] 60669 eGFRon 06-10-2018 GFR/1.73 sq M predicted among non-blacks MDRD (S/P/Bld) [Vol rate/Area] mL/min/{1.73_m2} Normal [facility] Comment on above: Order Comment: Order added by Discern Expert. Performed By: #### 1 [id number] #### [facility] [address] [place] [id number] CBC with Diffon 08-20-2017 Basophils Auto #/vol (Bld) 0.0 K/mcL Normal 0-0.2 [facility] Comment on above: Performed By: #### C BCDIF, EDCTNI, CMET ####Unless otherwise noted, all testing performed by [place] [id number]: [id number] Director: Saeid Platt M.D. Basophils/100 WBC Auto (Bld) 0.6 % Normal [facility] Comment on above: Performed By: #### C BCDIF, EDCTNI, CMET ####Unless otherwise noted, all testing performed by [place] 592196[address]CLIA: [id number] Director: Saeid Platt M.D. Eosinophils 0.2 K/mcL Normal 0-0.5 [facility] Comment on above: Performed By: #### C BCDIF, EDCTNI, CMET ####Unless otherwise noted, all testing performed by [place] 592196-[address]CLIA: [id number] Director: Saeid Platt M.D. Eosinophils/100 leukocytes 2.5 % Normal [facility] Comment on above: Performed By: #### C BCDIF, EDCTNI, CMET ####Unless otherwise noted, all testing performed by [place] 592[address]CLIA: [id number] Director: Saeid Platt M.D. Erythrocyte distribution width Auto Ratio (RBC) 13.7 % Normal 10-14.3 [facility] Comment on above: Performed By: #### C BCDIF, EDCTNI, CMET ####Unless otherwise noted, all testing performed by [address] [phone]: [id number] Director: Saeid Platt M.D. Erythrocytes (RBC) 4.59 M/mcL Normal 4.0-5.5 [facility] Comment on above: Performed By: #### C BCDIF, EDCTNI, CMET ####Unless otherwise noted, all testing performed by [address] [phone]: [id number] Director: Saeid Platt M.D. Hematocrit (HCT) 40.9 % Normal 37.9-49.2 [facility] Comment on above: Performed By: #### C BCDIF, EDCTNI, CMET ####Unless otherwise noted, all testing performed by [address] [phone]: [id number] Director: Saeid Platt M.D. Hemoglobin mass conc (Bld) 13.5 g/dL Normal 12.9-16.9 [facility] Comment on above: Performed By: #### C BCDIF, EDCTNI, CMET ####Unless otherwise noted, all testing performed by [address] [phone]: [id number] Director: Saeid Platt M.D. Lymphocytes 0.9 K/mcL Normal 0.9-3.6 [facility] Comment on above: Performed By: #### C BCDIF, EDCTNI, CMET ####Unless otherwise noted, all testing performed by [address] [phone]: [id number] Director: Saeid Platt M.D. Lymphocytes/100 leukocytes 12.5 % Normal [facility] Comment on above: Performed By: #### C BCDIF, EDCTNI, CMET ####Unless otherwise noted, all testing performed by [address] [phone]: [id number] Director: Saeid Platt M.D. MCH 29.5 pg Normal 27.7-34.6 [facility] Comment on above: Performed By: #### C BCDIF, EDCTNI, CMET ####Unless otherwise noted, all testing performed by [address] [phone]: [id number] Director: Saeid Platt M.D. MCHC mass conc (RBC) 33.1 g/dL Normal 32.9-35.5 [facility] Comment on above: Performed By: #### C BCDIF, EDCTNI, CMET ####Unless otherwise noted, all testing performed by [address] [phone]: [id number] Director: Saeid Platt M.D. MCV 89.1 fL Normal 82.8-99.3 [facility] Comment on above: Performed By: #### C BCDIF, EDCTNI, CMET ####Unless otherwise noted, all testing performed by [address] [phone]: [id number] Director: Saeid Platt M.D. Monocytes 0.4 K/mcL Normal 0.2-0.6 [facility] Comment on above: Performed By: #### C BCDIF, EDCTNI, CMET ####Unless otherwise noted, all testing performed by [place] [phone]: [id number] Director: Saeid Platt M.D. Monocytes/100 leukocytes 5.2 % Normal [facility] Comment on above: Performed By: #### C BCDIF, EDCTNI, CMET ####Unless otherwise noted, all testing performed by [address]CLIA: [id number] Director: Saeid Platt M.D. Neutrophils 5.6 K/mcL Normal 1.4-6.8 [facility] Comment on above: Performed By: #### C BCDIF, EDCTNI, CMET ####Unless otherwise noted, all testing performed by [address]8[address]CLIA: [id number] Director: Saeid Platt M.D. Platelet mean volume (PMV) 7.7 fL Normal 6.6-10.8 [facility] Comment on above: Performed By: #### C BCDIF, EDCTNI, CMET ####Unless otherwise noted, all testing performed by [address]CLIA: [id number] Director: Saeid Platt M.D. Platelets 286 K/mcL Normal 139-354 [facility] Comment on above: Performed By: #### C BCDIF, EDCTNI, CMET ####Unless otherwise noted, all testing performed by [address] [phone]: [id number] Director: Saeid Platt M.D. Segmented Neut % 79.2 % Normal [facility] Comment on above: Performed By: #### C CHRISTIDIF, OSCARTNI, CMET ####Unless otherwise noted, all testing performed by [address] [phone]: [id number] Director: Saeid Platt M.D. WBC (Leukocytes) 7.1 K/mcL Normal 3.6-10.4 [facility] Comment on above: Performed By: #### C ISMAELF, OSCARTCADEN, CMET ####Unless otherwise noted, all testing performed by [address] [phone]: [id number] Director: Saeid Platt M.D. CT BRAIN W/O CONTRASTon 07-31 CT BRAIN W/O CONTRAST Final ReportAccession No: [id number] Performed: Aug 20 2017 5:58AMExamination: CT [...] STERLING SANTIAGO M.D.Trans: nhatte : cc: Normal [facility] Comprehensive Metabolic Pane danyell 08-20-2017 Alanine aminotransferase (ALT) 21 U/L Normal 14-65 [facility] Comment on above: Result Comment: This test result might be falsely depressed or falsely elevated onsamples drawn from patients taking Sulfasalazine and Sulfapyridine.Venipuncture should occur prior to taking either of these drugs. Performed By: #### C GENE CRAIG, CMET ####Unless otherwise noted, all testing performed by [place] [id number]: [id number] Director: Saeid Platt M.D. Albumin 3.6 g/dL Normal 3.2-5.2 [facility] Comment on above: Performed By: #### C GENE CRAIG, CMET ####Unless otherwise noted, all testing performed by [place] [phone]: [id number] Director: Saeid Platt M.D. Alkaline phosphatase (ALP) 68 U/L Normal 40-150 [facility] Comment on above: Performed By: #### C GENE CRAIG, CMET ####Unless otherwise noted, all testing performed by [place] [phone]: [id number] Director: Saeid Platt M.D. Aspartate aminotransferase (AST) 14 U/L Normal 0-45 [facility] Comment on above: Result Comment: This test result might be falsely depressed or falsely elevated onsamples drawn from patients taking Sulfasalazine and Sulfapyridine.Venipuncture should occur prior to taking either of these drugs. Performed By: #### C BCDIF, EDCTNI, CMET ####Unless otherwise noted, all testing performed by [place] 592196-[address]CLIA: [id number] Director: Saeid Platt M.D. Bilirubin (total) 0.6 mg/dL Normal 0.3-1.2 [facility] Comment on above: Performed By: #### C BCDIF, EDCTNI, CMET ####Unless otherwise noted, all testing performed by [place] 592196-[address]CLIA: [id number] Director: Saeid Platt M.D. Calcium 8.6 mg/dL Normal 8.4-10.2 [facility] Comment on above: Performed By: #### C BCDIF, EDCTNI, CMET ####Unless otherwise noted, all testing performed by [place] [id number]: [id number] Director: Saeid Platt M.D. Chloride 102 mmol/L Normal 98-108 [facility] Comment on above: Performed By: #### C BCDIF, EDCTNI, CMET ####Unless otherwise noted, all testing performed by [place] [id number]: [id number] Director: Saeid Platt M.D. CO2 28 mmol/L Normal 21-32 [facility] Comment on above: Performed By: #### C BCDIF, EDCTNI, CMET ####Unless otherwise noted, all testing performed by [address] [phone]: [id number] Director: Saeid Platt M.D. Creatinine 1.03 mg/dL Normal 0.80-1.30 [facility] Comment on above: Performed By: #### C BCDIF, EDCTNI, CMET ####Unless otherwise noted, all testing performed by [address] [phone]: [id number] Director: Saeid Platt M.D. eGFR (black) mL/min/{1.73_m2} Normal [facility] Comment on above: Result Comment: Afri can Afghan GFR Calc Performed By: #### C BCDIF, EDCTNI, CMET ####Unless otherwise noted, all testing performed by [address] [phone]: [id number] Director: Saeid Platt M.D. eGFR (non-black) mL/min/{1.73_m2} Normal [facility] Comment on above: Result Comment: Non- [...] ####Unless otherwise noted, all testing performed by [address] [phone]: [id number] Director: Saeid Platt M.D. Glucose mass conc 195 mg/dL High 70-99 [facility] Comment on above: Result Comment: This test result might be falsely depressed or falsely elevated onsamples drawn from patients taking Sulfasalazine and Sulfapyridine.Venipuncture should occur prior to taking either of these drugs. Performed By: #### C BCDIF, EDCTNI, CMET ####Unless otherwise noted, all testing performed by [address] [phone]: [id number] Director: Saeid Platt M.D. Potassium molar conc 3.5 mmol/L Normal 3.5-5.1 [facility] Comment on above: Performed By: #### C BCDIF, EDCTNI, CMET ####Unless otherwise noted, all testing performed by [address] [phone]: [id number] Director: Saeid Platt M.D. Protein 7.2 g/dL Normal 6.0-8.0 [facility] Comment on above: Performed By: #### C BCDIF, EDCTNI, CMET ####Unless otherwise noted, all testing performed by [address] [phone]: [id number] Director: Saeid Platt M.D. Sodium 137 mmol/L Normal 135-145 [facility] Comment on above: Performed By: #### C BCDIF, EDCTNI, CMET ####Unless otherwise noted, all testing performed by [address] [phone]: [id number] Director: Saeid Platt M.D. Urea nitrogen 19 mg/dL Normal 8-25 [facility] Comment on above: Performed By: #### C GENE CRAIG, CMET ####Unless otherwise noted, all testing performed by [address] [phone]: [id number] Director: Saeid Platt M.D. ED Cardiac Troponin-Ion 07-31 Troponin I.cardiac mass conc ng/mL Normal < 45 [facility] Comment on above: Result Comment: Elev ation of troponin indicates some degree of myocardial necrosis butunless there is a significant rise and/or fall (if elevated) identified,it unlikely that an acute event has taken placeSamples from patients routinely receiving high dose biotin therapy(100-300 mg/day) may show falsely decreased results. Please correlateclinically. Performed By: #### C GENE CRAIG, CMET ####Unless otherwise noted, all testing performed by [address] [phone]: [id number] Director: Saeid Platt M.D. Vital Signs Date Time Vital Sign Value Performing Clinician Johana zavala 03-24-2025 16:20-0400 Body temperature 97.8 [degF] Dr. Chaitanya Puri MD Work Phone: [facility] 03-24-2025 16:20-0400 Diastolic blood pressure 55 mm[Hg] Dr. Chaitanya Puri MD Work Phone: [facility] 03-24-2025 16:20-0400 Heart rate 77 /min Dr. Chaitanya Puri MD Work Phone: [facility] 03-24-2025 16:20-0400 Respiratory rate 29 /min Dr. Chaitanya Puri MD Work Phone: [facility] 03-24-2025 16:20-0400 SaO2% (BldA) [Mass fraction] 97 % Dr. Chaitanya Puri MD Work Phone: [facility] 03-24-2025 16:20-0400 Systolic blood pressure 98 mm[Hg] Dr. Chaitanya Puri MD Work Phone: [phone] [place] [address] 03-24-2025 13:36-0400 Inhaled oxygen flow rate 2 L/min Dr. Chaitanya Puri MD Work Phone: [phone] [place] [address] 03-24-2025 08:54-0400 Body height 170.[address] Chaitanya Puri MD Work Phone: [phone])[phone] [place] [address] 03-24-2025 08:54-0400 Body mass index (BMI) [Ratio] 24.3 kg/m2 Dr. Chaitanya Puri MD Work Phone: 3(282)[phone] [place] [address] 03-24-2025 08:54-0400 Body weight 70.[address] Chaitanya Puri MD Work Phone: 8(168)[phone] [place] [address] 02-14-2025 08:42-0400 Body mass index (BMI) [Ratio] 29.05 kg/m2 Aarti Bar DO Work Phone: [facility] 02-14-2025 08:42-0400 Body temperature 97.11 [degF] Aarti Salasi DO Work Phone: [facility] 02-14-2025 08:42-0400 Body weight 74.39 kg Aarti Salasi DO Work Phone: [facility] 02-14-2025 08:42-0400 Diastolic blood pressure 62 mm[Hg] Aarti Salasi DO Work Phone: [facility] 02-14-2025 08:42-0400 Heart rate 98 /min Aarti Salasi DO Work Phone: [facility] 02-14-2025 08:42-0400 SaO2% (BldA) [Mass fraction] 92 % Aarti Salasi DO Work Phone: [facility] 02-14-2025 08:42-0400 Systolic blood pressure 102 mm[Hg] Aarti Salasi DO Work Phone: [facility] 02-14-2025 08:29-0400 Body mass index (BMI) [Ratio] 29.05 kg/m2 Lab/Port Wstr Work Phone: [facility] 02-14-2025 08:29-0400 Body weight 74.39 kg Lab/[facility]str Work Phone: [facility] 01-17-2025 09:59-0400 Body mass index (BMI) [Ratio] 29.23 kg/m2 Aarti Salasi DO Work Phone: [facility] 01-17-2025 09:59-0400 Body temperature 97.59 [degF] Aarti Masci DO Work Phone: [facility] 01-17-2025 09:59-0400 Body weight 74.84 kg Aarti Salasi DO Work Phone: [facility] 01-17-2025 09:59-0400 Diastolic blood pressure 70 mm[Hg] Aarti Josuei DO Work Phone: [facility] 01-17-2025 09:59-0400 Heart rate 104 /min Aarti Salasi DO Work Phone: [facility] 01-17-2025 09:59-0400 SaO2% (BldA) [Mass fraction] 96 % Aarti Josuei DO Work Phone: [facility] 01-17-2025 09:59-0400 Systolic blood pressure 109 mm[Hg] Aarti Josuei DO Work Phone: [facility] 01-16-2025 08:43-0400 Body mass index (BMI) [Ratio] 29.05 kg/m2 Mady Armenta APRN.[employer] Work Phone: [facility] 01-16-2025 08:43-0400 Body weight 74.39 kg Mady Armenta APRN.MIXER FOAM RUBBER Work Phone: [facility] 01-16-2025 08:43-0400 Diastolic blood pressure 62 mm[Hg] Mady Podlogar HAND 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 Work Phone: [facility] 01-16-2025 08:43-0400 Heart rate 109 /min Mady Podlogar HAND 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 Work Phone: [facility] 01-16-2025 08:43-0400 SaO2% (BldA) [Mass fraction] 94 % Mady Podlogar HAND 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 Work Phone: [facility] 01-16-2025 08:43-0400 Systolic blood pressure 126 mm[Hg] Mady Podlogar HAND 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 Work Phone: [facility] 01-10-2025 09:00-0400 Diastolic blood pressure 56 mm[Hg] Dr. Chaitanya Roe MD Work Phone: [facility] 01-10-2025 09:00-0400 Heart rate 72 /min Dr. Chaitanya Roe MD Work Phone: [facility] 01-10-2025 09:00-0400 Respiratory rate 24 /min Dr. Chaitanya Roe MD Work Phone: [facility] 01-10-2025 09:00-0400 SaO2% (BldA) [Mass fraction] 94 % Dr. Chaitanya Roe MD Work Phone: [facility] 01-10-2025 09:00-0400 Systolic blood pressure 108 mm[Hg] Dr. Chaitanya Roe MD Work Phone: [facility] 01-10-2025 08:00-0400 Body temperature 97.5 [degF] Dr. Chaitanya Roe MD Work Phone: [facility] 01-10-2025 05:26-0400 Body mass index (BMI) [Ratio] 26.4 kg/m2 Dr. Chaitanya Roe MD Work Phone: [facility] 01-10-2025 05:26-0400 Body weight 76.[address] Chaitanya Roe MD Work Phone: [facility] 01-10-2025 05:00-0400 Inhaled oxygen flow rate 2 L/min Dr. Chaitanya Roe MD Work Phone: [facility] 01-09-2025 17:13-0400 Body height 170.[address] Chaitanya Roe MD Work Phone: [facility] 01-09-2025 16:34-0400 Body temperature 98.6 [degF] Dr. Chaitanya Roe MD Work Phone: [facility] 01-09-2025 16:34-0400 Diastolic blood pressure 56 mm[Hg] Dr. Chaitanya Roe MD Work Phone: [facility] 01-09-2025 16:34-0400 Heart rate 73 /min Dr. Chaitanya Roe MD Work Phone: [phone] [place] [address] 01-09-2025 16:34-0400 Respiratory rate 18 /min Dr. Chaitanya Roe MD Work Phone: [facility] 01-09-2025 16:34-0400 SaO2% (BldA) [Mass fraction] 98 % Dr. Chaitanya Roe MD Work Phone: [facility] 01-09-2025 16:34-0400 Systolic blood pressure 96 mm[Hg] Dr. Chaitanya Roe MD Work Phone: [facility] 01-09-2025 13:13-0400 Body height 170.[address] Chaitanya Roe MD Work Phone: [facility] 01-09-2025 13:13-0400 Body mass index (BMI) [Ratio] 25 kg/m2 Dr. Chaitanya Roe MD Work Phone: [facility] 01-09-2025 13:13-0400 Body weight 72.[address] Chaitanya Roe MD Work Phone: [phone](095)[phone] [place] [address] 01-09-2025 08:38-0400 Body height 160 cm Dayami Puri MD Work Phone: [facility] 01-09-2025 08:38-0400 Body mass index (BMI) [Ratio] 28.41 kg/m2 Dayami Puri MD Work Phone: [facility] 01-09-2025 08:38-0400 Body temperature 97.9 [degF] Dayami Puri MD Work Phone: [facility] 01-09-2025 08:38-0400 Body weight 72.76 kg Dayami Puri MD Work Phone: [facility] 01-09-2025 08:38-0400 Diastolic blood pressure 66 mm[Hg] Dayami Puri MD Work Phone: [facility] 01-09-2025 08:38-0400 Heart rate 116 /min Dayami Puri MD Work Phone: [facility] 01-09-2025 08:38-0400 SaO2% (BldA) [Mass fraction] 96 % Dayami Puri MD Work Phone: [facility] 01-09-2025 08:38-0400 Systolic blood pressure 110 mm[Hg] Dayami Puri MD Work Phone: [facility] 12-15-2024 11:30-0400 Body temperature 98.71 [degF] Treatment Wstr Work Phone: [facility] 12-15-2024 11:30-0400 Diastolic blood pressure 61 mm[Hg] Treatment Wstr Work Phone: [facility] 12-15-2024 11:30-0400 Heart rate 73 /min Treatment Wstr Work Phone: [facility] 12-15-2024 11:30-0400 SaO2% (BldA) [Mass fraction] 94 % Treatment Wstr Work Phone: [facility] 12-15-2024 11:30-0400 Systolic blood pressure 98 mm[Hg] Treatment Wstr Work Phone: [facility] 12-07-2024 10:00-0400 Body temperature 97.2 [degF] Lab/Port Wstr Work Phone: [facility] 12-07-2024 10:00-0400 Diastolic blood pressure 69 mm[Hg] Lab/Port Wstr Work Phone: [facility] 12-07-2024 10:00-0400 Heart rate 79 /min Lab/Port Wstr Work Phone: [facility] 12-07-2024 10:00-0400 Systolic blood pressure 116 mm[Hg] Lab/Port Wstr Work Phone: [facility] 12-05-2024 07:00-0400 Body mass index (BMI) [Ratio] 31.27 kg/m2 Treatment Wstr Work Phone: [facility] 12-05-2024 07:00-0400 Body temperature 97.7 [degF] Treatment Wstr Work Phone: [facility] 12-05-2024 07:00-0400 Body weight 81.87 kg Treatment Wstr Work Phone: [facility] 12-05-2024 07:00-0400 Diastolic blood pressure 68 mm[Hg] Treatment Wstr Work Phone: [facility] 12-05-2024 07:00-0400 Heart rate 78 /min Treatment Wstr Work Phone: [facility] 12-05-2024 07:00-0400 Systolic blood pressure 117 mm[Hg] Treatment Wstr Work Phone: [facility] 11-30-2024 10:00-0400 Diastolic blood pressure 63 mm[Hg] Treatment Wstr Work Phone: [facility] 11-30-2024 10:00-0400 Heart rate 91 /min Treatment Wstr Work Phone: [facility] 11-30-2024 10:00-0400 Respiratory rate 20 /min Treatment Wstr Work Phone: [facility] 11-30-2024 10:00-0400 SaO2% (BldA) [Mass fraction] 89 % Treatment Wstr Work Phone: [facility] 11-30-2024 10:00-0400 Systolic blood pressure 104 mm[Hg] Treatment Wstr Work Phone: [facility] 11-24-2024 11:40-0400 Body temperature 97.2 [degF] Dr. Chaitanya Roe MD Work Phone: [facility] 11-24-2024 11:40-0400 Diastolic blood pressure 66 mm[Hg] Dr. Chaitanya Roe MD Work Phone: [facility] 11-24-2024 11:40-0400 Heart rate 84 /min Dr. Chaitanya Roe MD Work Phone: [facility] 11-24-2024 11:40-0400 Respiratory rate 16 /min Dr. Chaitanya Roe MD Work Phone: [facility] 11-24-2024 11:40-0400 Systolic blood pressure 121 mm[Hg] Dr. Chaitanya Roe MD Work Phone: [facility] 11-24-2024 10:42-0400 SaO2% (BldA) [Mass fraction] 92 % Dr. Chaitanya Roe MD Work Phone: [facility] 11-24-2024 08:01-0400 Body height 170.[address] Chaitanya Roe MD Work Phone: [facility] 11-24-2024 08:01-0400 Body mass index (BMI) [Ratio] 28.6 kg/m2 Dr. Chaitanya Roe MD Work Phone: [facility] 11-24-2024 08:01-0400 Body weight [address] Chaitanya Roe MD Work Phone: [facility] 11-23-2024 10:12-0400 Body mass index (BMI) [Ratio] 31.71 kg/m2 Treatment Wstr Work Phone: [facility] 11-23-2024 10:12-0400 Body temperature 98.01 [degF] Treatment Wstr Work Phone: [facility] 11-23-2024 10:120400 Body weight 83.01 kg Treatment Wstr Work Phone: [facility] 11-23-2024 10:12-0400 Diastolic blood pressure 69 mm[Hg] Treatment Wstr Work Phone: [facility] 11-23-2024 10:12-0400 Heart rate 79 /min Treatment Wstr Work Phone: [facility] 11-23-2024 10:12-0400 SaO2% (BldA) [Mass fraction] 94 % Treatment Wstr Work Phone: [facility] 11-23-2024 10:12-0400 Systolic blood pressure 122 mm[Hg] Treatment Wstr Work Phone: [facility] 11-09-2024 09:26-0400 Body mass index (BMI) [Ratio] 32.57 kg/m2 [employer]i [employer] Folioi DO Work Phone: [facility] 11-09-2024 09:26-0400 Body temperature 98.1 [degF] [employer] Folioi DO Work Phone: [facility] 11-09-2024 09:26-0400 Body weight 85.28 kg Aarti Masci DO Work Phone: [facility] 11-09-2024 09:26-0400 Diastolic blood pressure 68 mm[Hg] [employer] Folioi DO Work Phone: [facility] 11-09-2024 09:26-0400 Heart rate 87 /min Aarti Josuei DO Work Phone: [facility] 11-09-2024 09:26-0400 SaO2% (BldA) [Mass fraction] 95 % [employer] Folioi DO Work Phone: [facility] 11-09-2024 09:26-0400 Systolic blood pressure 114 mm[Hg] [employer]i [employer] Folioi DO Work Phone: [facility] 11-09-2024 09:11-0400 Body mass index (BMI) [Ratio] 32.57 kg/m2 Lab/Port Wstr Work Phone: [facility] 11-09-2024 09:11-0400 Body weight 85.28 kg Lab/Port Wstr Work Phone: [facility] 10-28-2024 11:30-0400 Body temperature 97.59 [degF] Lab/Port Wstr Work Phone: [facility] 10-28-2024 11:30-0400 Diastolic blood pressure 72 mm[Hg] Lab/Port [facility]str Work Phone: [facility] 10-28-2024 11:30-0400 Heart rate 77 /min Lab/Port Wstr Work Phone: [facility] 10-28-2024 11:30-0400 Respiratory rate 20 /min Lab/Port Wstr Work Phone: [facility] 10-28-2024 11:30-0400 SaO2% (BldA) [Mass fraction] 97 % Lab/Port [facility]str Work Phone: [facility] 10-28-2024 11:30-0400 Systolic blood pressure 130 mm[Hg] Lab/Port Wstr Work Phone: [facility] 10-26-2024 09:09-0400 Body mass index (BMI) [Ratio] 33.44 kg/m2 Treatment Wstr Work Phone: [facility] 10-26-2024 09:09-0400 Body temperature 98.01 [degF] Treatment Wstr Work Phone: [facility] 10-26-2024 09:09-0400 Body weight 87.54 kg Treatment Wstr Work Phone: [facility] 10-26-2024 09:09-0400 Diastolic blood pressure 67 mm[Hg] Treatment Wstr Work Phone: [facility] 10-26-2024 09:09-0400 Heart rate 82 /min Treatment Wstr Work Phone: [facility] 10-26-2024 09:09-0400 Respiratory rate 22 /min Treatment Wstr Work Phone: [facility] 10-26-2024 09:09-0400 SaO2% (BldA) [Mass fraction] 97 % Treatment Wstr Work Phone: [facility] 10-26-2024 09:09-0400 Systolic blood pressure 144 mm[Hg] Treatment Wstr Work Phone: [facility] 10-14-2024 13:05-0400 Diastolic blood pressure 62 mm[Hg] Lab/Port Wstr Work Phone: [facility] 10-14-2024 13:05-0400 Heart rate 90 /min Lab/Port Wstr Work Phone: [facility] 10-14-2024 13:05-0400 SaO2% (BldA) [Mass fraction] 97 % Lab/Port Wstr Work Phone: [facility] 10-14-2024 13:05-0400 Systolic blood pressure 118 mm[Hg] Lab/Port Wstr Work Phone: [facility] 10-12-2024 10:02-0400 Body mass index (BMI) [Ratio] 33.53 kg/m2 Lab/Port Wstr Work Phone: [facility] 10-12-2024 10:02-0400 Body temperature 97.59 [degF] Aarti Masci DO Work Phone: [facility] 10-12-2024 10:02-0400 Body weight 87.77 kg Lab/Port Wstr Work Phone: [facility] 10-12-2024 10:02-0400 Diastolic blood pressure 74 mm[Hg] Aarti Masci DO Work Phone: [facility] 10-12-2024 10:02-0400 Heart rate 68 /min Aarti Masci DO Work Phone: [facility] 10-12-2024 10:02-0400 SaO2% (BldA) [Mass fraction] 97 % Aarti Masci DO Work Phone: [facility] 10-12-2024 10:02-0400 Systolic blood pressure 135 mm[Hg] Aarti Bar DO Work Phone: [facility] 09-30-2024 12:33-0400 Body temperature 97 [degF] Lab/Port Wstr Work Phone: [facility] 09-30-2024 12:33-0400 Diastolic blood pressure 89 mm[Hg] Lab/Port Wstr Work Phone: [facility] 09-30-2024 12:33-0400 Heart rate 79 /min Lab/Port Wstr Work Phone: [facility] 09-30-2024 12:33-0400 SaO2% (BldA) [Mass fraction] 96 % Lab/Port Wstr Work Phone: [facility] 09-30-2024 12:33-0400 Systolic blood pressure 140 mm[Hg] Lab/Port Wstr Work Phone: [facility] 09-28-2024 09:56-0400 Body mass index (BMI) [Ratio] 33.96 kg/m2 Treatment Wstr Work Phone: [facility] 09-28-2024 09:56-0400 Body temperature 97.7 [degF] Treatment Wstr Work Phone: [facility] 09-28-2024 09:56-0400 Body weight 88.91 kg Treatment Wstr Work Phone: [facility] 09-28-2024 09:56-0400 Diastolic blood pressure 65 mm[Hg] Treatment Wstr Work Phone: [facility] 09-28-2024 09:56-0400 Heart rate 68 /min Treatment Wstr Work Phone: [facility] 09-28-2024 09:56-0400 SaO2% (BldA) [Mass fraction] 97 % Treatment Wstr Work Phone: [facility] 09-28-2024 09:56-0400 Systolic blood pressure 134 mm[Hg] Treatment Wstr Work Phone: [facility] 09-16-2024 11:22-0400 Body temperature 97.2 [degF] Lab/Port Wstr Work Phone: [facility] 09-16-2024 11:22-0400 Heart rate 91 /min Lab/Port Wstr Work Phone: [facility] 09-16-2024 11:22-0400 SaO2% (BldA) [Mass fraction] 94 % Lab/Port [facility]str Work Phone: [facility] 09-14-2024 09:18-0400 Body mass index (BMI) [Ratio] 34.22 kg/m2 Rhonda Owens Work Phone: [facility] 09-14-2024 09:18-0400 Body temperature 97.7 [degF] Rhonda Owens Work Phone: [facility] 09-14-2024 09:18-0400 Body weight 89.58 kg Rhonda Owens Work Phone: [facility] 09-14-2024 09:18-0400 Diastolic blood pressure 74 mm[Hg] Rhonda Owens Work Phone: [facility] 09-14-2024 09:18-0400 Heart rate 74 /min Rhonda Owens Work Phone: [facility] 09-14-2024 09:18-0400 SaO2% (BldA) [Mass fraction] 94 % Rhondasarah Owens Work Phone: [facility] 09-14-2024 09:18-0400 Systolic blood pressure 149 mm[Hg] Rhonda Owens Work Phone: [facility] 09-14-2024 09:06-0400 Body mass index (BMI) [Ratio] 34.22 kg/m2 Treatment Wstr Work Phone: [facility] 09-14-2024 09:06-0400 Body weight 89.58 kg Treatment Wstr Work Phone: [facility] 09-02-2024 12:18-0500 Body temperature 97.2 [degF] Lab/Port Wstr Work Phone: [facility] 09-02-2024 12:18-0500 Diastolic blood pressure 58 mm[Hg] Lab/Port Wstr Work Phone: [facility] 09-02-2024 12:18-0500 Heart rate 80 /min Lab/Port Wstr Work Phone: [facility] 09-02-2024 12:18-0500 Respiratory rate 18 /min Lab/Port Wstr Work Phone: [facility] 09-02-2024 12:18-0500 SaO2% (BldA) [Mass fraction] 94 % Lab/Port Wstr Work Phone: [facility] 09-02-2024 12:18-0500 Systolic blood pressure 121 mm[Hg] Lab/Port Wstr Work Phone: [facility] 08-31-2024 08:46-0500 Body mass index (BMI) [Ratio] 34.05 kg/m2 Treatment Wstr Work Phone: [facility] 08-31-2024 08:46-0500 Body temperature 97.3 [degF] Treatment Wstr Work Phone: [facility] 08-31-2024 08:46-0500 Body weight 89.13 kg Treatment Wstr Work Phone: [facility] 08-31-2024 08:46-0500 Diastolic blood pressure 69 mm[Hg] Treatment Wstr Work Phone: [facility] 08-31-2024 08:46-0500 Heart rate 70 /min Treatment Wstr Work Phone: [facility] 08-31-2024 08:46-0500 SaO2% (BldA) [Mass fraction] 94 % Treatment Wstr Work Phone: [facility] 08-31-2024 08:46-0500 Systolic blood pressure 123 mm[Hg] Treatment Wstr Work Phone: [facility] 08-19-2024 11:23-0500 Body temperature 97.11 [degF] Lab/Port Wstr Work Phone: [facility] 08-19-2024 11:23-0500 Diastolic blood pressure 69 mm[Hg] Lab/Port Wstr Work Phone: [facility] 08-19-2024 11:23-0500 Heart rate 82 /min Lab/Port Wstr Work Phone: [facility] 08-19-2024 11:23-0500 SaO2% (BldA) [Mass fraction] 96 % Lab/Port Wstr Work Phone: [facility] 08-19-2024 11:23-0500 Systolic blood pressure 138 mm[Hg] Lab/Port Wstr Work Phone: [facility] 08-17-2024 09:13-0500 Body mass index (BMI) [Ratio] 34.31 kg/m2 Aarti Masci DO Work Phone: [facility] 08-17-2024 09:13-0500 Body temperature 97.39 [degF] Aarti Masci DO Work Phone: [facility] 08-17-2024 09:13-0500 Body weight 89.81 kg Aarti Masci DO Work Phone: [facility] 08-17-2024 09:13-0500 Diastolic blood pressure 70 mm[Hg] Aarti Masci DO Work Phone: [facility] 08-17-2024 09:13-0500 Heart rate 68 /min Aarti Masci DO Work Phone: [facility] 08-17-2024 09:13-0500 SaO2% (BldA) [Mass fraction] 97 % Aarti Masci DO Work Phone: [facility] 08-17-2024 09:13-0500 Systolic blood pressure 145 mm[Hg] Aarti Masci DO Work Phone: [facility] 08-05-2024 11:30-0500 Body temperature 97.11 [degF] Lab/Port Wstr Work Phone: [facility] 08-05-2024 11:30-0500 Diastolic blood pressure 69 mm[Hg] Lab/Port Wstr Work Phone: [facility] 08-05-2024 11:30-0500 Heart rate 61 /min Lab/Port Wstr Work Phone: [facility] 08-05-2024 11:30-0500 SaO2% (BldA) [Mass fraction] 95 % Lab/Port Wstr Work Phone: [facility] 08-05-2024 11:30-0500 Systolic blood pressure 138 mm[Hg] Lab/Port Wstr Work Phone: [facility] 08-03-2024 08:47-0500 Body mass index (BMI) [Ratio] 34.31 kg/m2 Treatment Wstr Work Phone: [facility] 08-03-2024 08:47-0500 Body temperature 97.2 [degF] Treatment Wstr Work Phone: [facility] 08-03-2024 08:47-0500 Body weight 89.81 kg Treatment Wstr Work Phone: [facility] 08-03-2024 08:47-0500 Diastolic blood pressure 85 mm[Hg] Treatment Wstr Work Phone: [facility] 08-03-2024 08:47-0500 Heart rate 85 /min Treatment Wstr Work Phone: [facility] 08-03-2024 08:47-0500 Respiratory rate 22 /min Treatment Wstr Work Phone: [facility] 08-03-2024 08:47-0500 SaO2% (BldA) [Mass fraction] 94 % Treatment Wstr Work Phone: [facility] 08-03-2024 08:47-0500 Systolic blood pressure 109 mm[Hg] Treatment Wstr Work Phone: [facility] 07-22-2024 12:20-0500 Body temperature 97.5 [degF] Lab/Port Wstr Work Phone: [facility] 07-22-2024 12:20-0500 Diastolic blood pressure 73 mm[Hg] Lab/Port Wstr Work Phone: [facility] 07-22-2024 12:20-0500 Heart rate 80 /min Lab/Port Wstr Work Phone: [facility] 07-22-2024 12:20-0500 SaO2% (BldA) [Mass fraction] 94 % Lab/Port Wstr Work Phone: [facility] 07-22-2024 12:20-0500 Systolic blood pressure 148 mm[Hg] Lab/Port Wstr Work Phone: [facility] 07-20-2024 09:09-0500 Body mass index (BMI) [Ratio] 34.31 kg/m2 Aarti Masci DO Work Phone: [facility] 07-20-2024 09:09-0500 Body temperature 97.11 [degF] Aarti Masci DO Work Phone: [facility] 07-20-2024 09:09-0500 Body weight 89.81 kg Aarti Masci DO Work Phone: [facility] 07-20-2024 09:09-0500 Diastolic blood pressure 77 mm[Hg] Aarti Masci DO Work Phone: [facility] 07-20-2024 09:09-0500 Heart rate 74 /min Aarti Masci DO Work Phone: [facility] 07-20-2024 09:09-0500 SaO2% (BldA) [Mass fraction] 95 % Aarti Masci DO Work Phone: [facility] 07-20-2024 09:09-0500 Systolic blood pressure 146 mm[Hg] Aarti Masci DO Work Phone: [facility] 07-11-2024 09:02-0500 Heart rate 96 /min Dayami Puri MD Work Phone: [facility] 07-11-2024 08:38-0500 Body mass index (BMI) [Ratio] 33.65 kg/m2 Dayami Puri MD Work Phone: [facility] 07-11-2024 08:38-0500 Body weight 88.09 kg Dayami Puri MD Work Phone: [facility] 07-11-2024 08:38-0500 Diastolic blood pressure 64 mm[Hg] Dayami Puri MD Work Phone: [facility] 07-11-2024 08:38-0500 Respiratory rate 20 /min Dayami Puri MD Work Phone: [facility] 07-11-2024 08:38-0500 SaO2% (BldA) [Mass fraction] 93 % Dayami Puri MD Work Phone: [facility] 07-11-2024 08:38-0500 Systolic blood pressure 126 mm[Hg] Dayami Puri MD Work Phone: [facility] 07-06-2024 08:43-0500 Body mass index (BMI) [Ratio] 33.96 kg/m2 Treatment Wstr Work Phone: [facility] 07-06-2024 08:43-0500 Body temperature 97.2 [degF] Treatment Wstr Work Phone: [facility] 07-06-2024 08:43-0500 Body weight 88.91 kg Treatment Wstr Work Phone: [facility] 07-06-2024 08:43-0500 Diastolic blood pressure 73 mm[Hg] Treatment Wstr Work Phone: [facility] 07-06-2024 08:43-0500 Heart rate 113 /min Treatment Wstr Work Phone: [facility] 07-06-2024 08:43-0500 Systolic blood pressure 126 mm[Hg] Treatment Wstr Work Phone: [facility] 06-28-2024 09:00-0500 Body mass index (BMI) [Ratio] 34.07 kg/m2 Silva Cash APRN.CNP Work Phone: [facility] 06-28-2024 09:00-0500 Body temperature 99.3 [degF] Silva Tannhof [employer] 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 Work Phone: [facility] 06-28-2024 09:00-0500 Body weight 89.2 kg Silva Vernonhof [employer] 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 Work Phone: [facility] 06-28-2024 09:00-0500 Diastolic blood pressure 60 mm[Hg] Silva Tannhof HAND 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 Work Phone: [facility] 06-28-2024 09:00-0500 Heart rate 100 /min Silva Vernonhof HAND 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 Work Phone: [facility] 06-28-2024 09:00-0500 Respiratory rate 16 /min Silva Vernonhof HAND 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 Work Phone: [facility] 06-28-2024 09:00-0500 SaO2% (BldA) [Mass fraction] 93 % Silva Vernonhof HAND 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 Work Phone: [facility] 06-28-2024 09:00-0500 Systolic blood pressure 110 mm[Hg] Silva Vernonhof HAND 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 Work Phone: [facility] 06-23-2024 10:27-0500 Body temperature 96.01 [degF] Lab/Port Wstr Work Phone: [facility] 06-23-2024 10:27-0500 Diastolic blood pressure 66 mm[Hg] Lab/Port Wstr Work Phone: [facility] 06-23-2024 10:27-0500 Heart rate 69 /min Lab/Port Wstr Work Phone: [facility] 06-23-2024 10:27-0500 Respiratory rate 18 /min Lab/Port Wstr Work Phone: [facility] 06-23-2024 10:27-0500 SaO2% (BldA) [Mass fraction] 94 % Lab/Port Wstr Work Phone: [facility] 06-23-2024 10:27-0500 Systolic blood pressure 124 mm[Hg] Lab/Port Wstr Work Phone: [facility] 06-21-2024 08:34-0500 Body mass index (BMI) [Ratio] 34.91 kg/m2 John Mccray MD Work Phone: [facility] 06-21-2024 08:34-0500 Body temperature 98.01 [degF] John Mccray MD Work Phone: [facility] 06-21-2024 08:34-0500 Body weight 91.4 kg John Mccray MD Work Phone: [facility] 06-21-2024 08:34-0500 Diastolic blood pressure 67 mm[Hg] John Mccray MD Work Phone: [facility] 06-21-2024 08:34-0500 Heart rate 88 /min John Mccray MD Work Phone: [facility] 06-21-2024 08:34-0500 SaO2% (BldA) [Mass fraction] 92 % John Mccray MD Work Phone: [facility] 06-21-2024 08:34-0500 Systolic blood pressure 122 mm[Hg] John Mccray MD Work Phone: [facility] 06-21-2024 08:23-0500 Body mass index (BMI) [Ratio] 34.91 kg/m2 Lab/Port Wstr Work Phone: [facility] 06-21-2024 08:23-0500 Body weight 91.4 kg Lab/Port Wstr Work Phone: [facility] 06-10-2024 11:34-0500 Body temperature 96.91 [degF] Lab/Port Wstr Work Phone: [facility] 06-10-2024 11:34-0500 Diastolic blood pressure 64 mm[Hg] Lab/Port Wstr Work Phone: [facility] 06-10-2024 11:34-0500 Heart rate 63 /min Lab/Port Wstr Work Phone: [facility] 06-10-2024 11:34-0500 Respiratory rate 18 /min Lab/Port Wstr Work Phone: [facility] 06-10-2024 11:34-0500 SaO2% (BldA) [Mass fraction] 95 % Lab/Port Wstr Work Phone: [facility] 06-10-2024 11:34-0500 Systolic blood pressure 135 mm[Hg] Lab/Port Wstr Work Phone: [facility] 06-08-2024 09:19-0500 Body mass index (BMI) [Ratio] 35.52 kg/m2 Treatment Wstr Work Phone: [facility] 06-08-2024 09:19-0500 Body temperature 97.11 [degF] Treatment Wstr Work Phone: [facility] 06-08-2024 09:19-0500 Body weight 92.99 kg Treatment Wstr Work Phone: [facility] 06-08-2024 09:19-0500 Diastolic blood pressure 73 mm[Hg] Treatment Wstr Work Phone: [facility] 06-08-2024 09:19-0500 Heart rate 78 /min Treatment Wstr Work Phone: [facility] 06-08-2024 09:19-0500 SaO2% (BldA) [Mass fraction] 96 % Treatment Wstr Work Phone: [facility] 06-08-2024 09:19-0500 Systolic blood pressure 136 mm[Hg] Treatment Wstr Work Phone: [facility] 05-27-2024 11:06-0500 Body temperature 96.91 [degF] Lab/Port Wstr Work Phone: [facility] 05-27-2024 11:06-0500 Diastolic blood pressure 82 mm[Hg] Lab/Port Wstr Work Phone: [facility] 05-27-2024 11:06-0500 Heart rate 56 /min Lab/Port Wstr Work Phone: [facility] 05-27-2024 11:06-0500 Respiratory rate 16 /min Lab/Port Wstr Work Phone: [facility] 05-27-2024 11:06-0500 SaO2% (BldA) [Mass fraction] 97 % Lab/Port Wstr Work Phone: [facility] 05-27-2024 11:06-0500 Systolic blood pressure 146 mm[Hg] Lab/Port Wstr Work Phone: [facility] 05-25-2024 08:47-0500 Body temperature 97.5 [degF] Treatment Wstr Work Phone: [facility] 05-25-2024 08:47-0500 Diastolic blood pressure 77 mm[Hg] Treatment Wstr Work Phone: [facility] 05-25-2024 08:47-0500 Heart rate 74 /min Treatment Wstr Work Phone: [facility] 05-25-2024 08:47-0500 Respiratory rate 18 /min Treatment Wstr Work Phone: [facility] 05-25-2024 08:47-0500 SaO2% (BldA) [Mass fraction] 96 % Treatment Wstr Work Phone: [facility] 05-25-2024 08:47-0500 Systolic blood pressure 135 mm[Hg] Treatment Wstr Work Phone: [facility] 05-24-2024 09:34-0500 Body mass index (BMI) [Ratio] 35.69 kg/m2 Lab/Port Wstr Work Phone: [facility] 05-24-2024 09:34-0500 Body temperature 97.81 [degF] Aarti Bar DO Work Phone: [facility] 05-24-2024 09:34-0500 Body weight 93.44 kg Lab/Port Wstr Work Phone: [facility] 05-24-2024 09:34-0500 Diastolic blood pressure 75 mm[Hg] Aarti Bar DO Work Phone: [facility] 05-24-2024 09:34-0500 Heart rate 65 /min Aarti Bar DO Work Phone: [facility] 05-24-2024 09:34-0500 SaO2% (BldA) [Mass fraction] 97 % Aarti Bar DO Work Phone: [facility] 05-24-2024 09:34-0500 Systolic blood pressure 144 mm[Hg] Aarti Bar DO Work Phone: [facility] 05-13-2024 11:24-0500 Body temperature 97.2 [degF] Lab/Port Wstr Work Phone: [facility] 05-13-2024 11:24-0500 Diastolic blood pressure 76 mm[Hg] Lab/Port Wstr Work Phone: [facility] 05-13-2024 11:24-0500 Heart rate 63 /min Lab/Port Wstr Work Phone: [facility] 05-13-2024 11:24-0500 SaO2% (BldA) [Mass fraction] 96 % Lab/Port Wstr Work Phone: [facility] 05-13-2024 11:24-0500 Systolic blood pressure 142 mm[Hg] Lab/Port Wstr Work Phone: [facility] 05-11-2024 09:12-0500 Body mass index (BMI) [Ratio] 35.69 kg/m2 Treatment Wstr Work Phone: [facility] 05-11-2024 09:12-0500 Body temperature 97.39 [degF] Treatment Wstr Work Phone: [facility] 05-11-2024 09:12-0500 Body weight 93.44 kg Treatment Wstr Work Phone: [facility] 05-11-2024 09:12-0500 Diastolic blood pressure 67 mm[Hg] Treatment Wstr Work Phone: [facility] 05-11-2024 09:12-0500 Heart rate 74 /min Treatment Wstr Work Phone: [facility] 05-11-2024 09:12-0500 SaO2% (BldA) [Mass fraction] 97 % Treatment Wstr Work Phone: [facility] 05-11-2024 09:12-0500 Systolic blood pressure 127 mm[Hg] Treatment Wstr Work Phone: [facility] 04-29-2024 11:38-0400 Body temperature 96.69 [degF] Lab/Port Wstr Work Phone: [facility] 04-29-2024 11:38-0400 Diastolic blood pressure 72 mm[Hg] Lab/Port Wstr Work Phone: [facility] 04-29-2024 11:38-0400 Heart rate 63 /min Lab/Port Wstr Work Phone: [facility] 04-29-2024 11:38-0400 Respiratory rate 18 /min Lab/Port Wstr Work Phone: [facility] 04-29-2024 11:38-0400 SaO2% (BldA) [Mass fraction] 97 % Lab/Port Wstr Work Phone: [facility] 04-29-2024 11:38-0400 Systolic blood pressure 144 mm[Hg] Lab/Port Wstr Work Phone: [facility] 04-27-2024 09:00-0400 Diastolic blood pressure 73 mm[Hg] Treatment Wstr Work Phone: [facility] 04-27-2024 09:00-0400 Heart rate 68 /min Treatment Wstr Work Phone: [facility] 04-27-2024 09:00-0400 Respiratory rate 20 /min Treatment Wstr Work Phone: [facility] 04-27-2024 09:00-0400 SaO2% (BldA) [Mass fraction] 96 % Treatment Wstr Work Phone: [facility] 04-27-2024 09:00-0400 Systolic blood pressure 127 mm[Hg] Treatment Wstr Work Phone: [facility] 04-26-2024 09:46-0400 Body mass index (BMI) [Ratio] 35.35 kg/m2 Aarti Masci DO Work Phone: [facility] 04-26-2024 09:46-0400 Body temperature 97.3 [degF] Aarti Masci DO Work Phone: [facility] 04-26-2024 09:46-0400 Body weight 92.53 kg Aarti Masci DO Work Phone: [facility] 04-26-2024 09:46-0400 Diastolic blood pressure 77 mm[Hg] Aarti Masci DO Work Phone: [facility] 04-26-2024 09:46-0400 Heart rate 64 /min Aarti Masci DO Work Phone: [facility] 04-26-2024 09:46-0400 SaO2% (BldA) [Mass fraction] 96 % Aarti Masci DO Work Phone: [facility] 04-26-2024 09:46-0400 Systolic blood pressure 150 mm[Hg] Aarti Masci DO Work Phone: [facility] 04-26-2024 09:39-0400 Body mass index (BMI) [Ratio] 35.35 kg/m2 Lab/Port Wstr Work Phone: [facility] 04-26-2024 09:39-0400 Body weight 92.53 kg Lab/Port Wstr Work Phone: [facility] 04-15-2024 11:38-0400 Body temperature 97.39 [degF] Lab/Port Wstr Work Phone: [facility] 04-15-2024 11:38-0400 Diastolic blood pressure 70 mm[Hg] Lab/Port Wstr Work Phone: [facility] 04-15-2024 11:38-0400 Heart rate 65 /min Lab/Port Wstr Work Phone: [facility] 04-15-2024 11:38-0400 Respiratory rate 20 /min Lab/Port Wstr Work Phone: [facility] 04-15-2024 11:38-0400 Systolic blood pressure 125 mm[Hg] Lab/Port Wstr Work Phone: [facility] 04-13-2024 09:51-0400 Body temperature 97.2 [degF] Treatment Wstr Work Phone: [facility] 04-13-2024 09:51-0400 Diastolic blood pressure 67 mm[Hg] Treatment Wstr Work Phone: [facility] 04-13-2024 09:51-0400 Heart rate 68 /min Treatment Wstr Work Phone: [facility] 04-13-2024 09:51-0400 SaO2% (BldA) [Mass fraction] 94 % Treatment Wstr Work Phone: [facility] 04-13-2024 09:51-0400 Systolic blood pressure 125 mm[Hg] Treatment Wstr Work Phone: [facility] 04-12-2024 10:05-0400 Body mass index (BMI) [Ratio] 35.17 kg/m2 [employer]i [employer] Folioi DO Work Phone: [facility] 04-12-2024 10:05-0400 Body temperature 97.11 [degF] Aarti Masci DO Work Phone: [facility] 04-12-2024 10:05-0400 Body weight 92.08 kg Aarti Masci DO Work Phone: [facility] 04-12-2024 10:05-0400 Diastolic blood pressure 54 mm[Hg] Aarti Masci DO Work Phone: [facility] 04-12-2024 10:05-0400 Heart rate 75 /min Aarti Masci DO Work Phone: [facility] 04-12-2024 10:05-0400 SaO2% (BldA) [Mass fraction] 96 % Aarti Masci DO Work Phone: [facility] 04-12-2024 10:05-0400 Systolic blood pressure 135 mm[Hg] Aarti Masci DO Work Phone: [facility] 04-12-2024 09:55-0400 Body mass index (BMI) [Ratio] 35.17 kg/m2 Lab/Port Wstr Work Phone: [facility] 04-12-2024 09:55-0400 Body weight 92.08 kg Lab/Port Wstr Work Phone: [facility] 04-08-2024 09:20-0400 Body mass index (BMI) [Ratio] 34.65 kg/m2 Injection Wstr Work Phone: [facility] 04-08-2024 09:20-0400 Body temperature 97.2 [degF] Injection Wstr Work Phone: [facility] 04-08-2024 09:20-0400 Body weight 90.72 kg Injection Wstr Work Phone: [facility] 04-08-2024 09:20-0400 Diastolic blood pressure 75 mm[Hg] Injection Wstr Work Phone: [facility] 04-08-2024 09:20-0400 Heart rate 104 /min Injection Wstr Work Phone: [facility] 04-08-2024 09:20-0400 SaO2% (BldA) [Mass fraction] 93 % Injection Wstr Work Phone: [facility] 04-08-2024 09:20-0400 Systolic blood pressure 155 mm[Hg] Injection Wstr Work Phone: [facility] 04-01-2024 11:43-0400 Body temperature 97.3 [degF] Lab/Port Wstr Work Phone: [facility] 04-01-2024 11:43-0400 Diastolic blood pressure 71 mm[Hg] Lab/Port Wstr Work Phone: [facility] 04-01-2024 11:43-0400 Heart rate 76 /min Lab/Port Wstr Work Phone: [facility] 04-01-2024 11:43-0400 Respiratory rate 18 /min Lab/Port Wstr Work Phone: [facility] 04-01-2024 11:43-0400 SaO2% (BldA) [Mass fraction] 97 % Lab/Port Wstr Work Phone: [facility] 04-01-2024 11:43-0400 Systolic blood pressure 118 mm[Hg] Lab/Port Wstr Work Phone: [facility] 03-30-2024 09:38-0400 Body temperature 97.3 [degF] Treatment Wstr Work Phone: [facility] 03-30-2024 09:38-0400 Heart rate 90 /min Treatment Wstr Work Phone: [facility] 03-30-2024 09:38-0400 SaO2% (BldA) [Mass fraction] 94 % Treatment Wstr Work Phone: [facility] 03-29-2024 08:23-0400 Body mass index (BMI) [Ratio] 35.09 kg/m2 Aarti Josuei DO Work Phone: [facility] 03-29-2024 08:23-0400 Body temperature 98.2 [degF] Aarti Masci DO Work Phone: [facility] 03-29-2024 08:23-0400 Body weight 91.85 kg Aarti Masci DO Work Phone: [facility] 03-29-2024 08:23-0400 Diastolic blood pressure 82 mm[Hg] Aarti Masci DO Work Phone: [facility] 03-29-2024 08:23-0400 Heart rate 108 /min Aarti Masci DO Work Phone: [facility] 03-29-2024 08:23-0400 SaO2% (BldA) [Mass fraction] 92 % Aarti Masci DO Work Phone: [facility] 03-29-2024 08:23-0400 Systolic blood pressure 136 mm[Hg] Aarti Masci DO Work Phone: [facility] 03-29-2024 08:20-0400 Body mass index (BMI) [Ratio] 35.09 kg/m2 Lab/Port Wstr Work Phone: [facility] 03-29-2024 08:20-0400 Body weight 91.85 kg Lab/Port Wstr Work Phone: [facility] 03-23-2024 10:52-0400 Diastolic blood pressure 78 mm[Hg] Injection Wstr Work Phone: [facility] 03-23-2024 10:52-0400 Heart rate 98 /min Injection Wstr Work Phone: [facility] 03-23-2024 10:52-0400 Systolic blood pressure 146 mm[Hg] Injection Wstr Work Phone: [facility] 03-16-2024 08:12-0400 Body mass index (BMI) [Ratio] 34.65 kg/m2 Treatment Wstr Work Phone: [facility] 03-16-2024 08:12-0400 Body temperature 97.9 [degF] Treatment Wstr Work Phone: [facility] 03-16-2024 08:12-0400 Body weight 90.7 kg Treatment Wstr Work Phone: [facility] 03-16-2024 08:12-0400 Diastolic blood pressure 67 mm[Hg] Treatment Wstr Work Phone: [facility] 03-16-2024 08:12-0400 Heart rate 107 /min Treatment Wstr Work Phone: [facility] 03-16-2024 08:12-0400 SaO2% (BldA) [Mass fraction] 93 % Treatment Wstr Work Phone: [facility] 03-16-2024 08:12-0400 Systolic blood pressure 142 mm[Hg] Treatment Wstr Work Phone: [facility] 03-15-2024 08:53-0400 Body mass index (BMI) [Ratio] 34.65 kg/m2 Rhonda Owens Work Phone: [facility] 03-15-2024 08:53-0400 Body temperature 97.81 [degF] Rhonda Owens Work Phone: [facility] 03-15-2024 08:53-0400 Body weight 90.72 kg Rhonda Owens Work Phone: [facility] 03-15-2024 08:53-0400 Diastolic blood pressure 79 mm[Hg] Rhonda Owens Work Phone: [facility] 03-15-2024 08:53-0400 Heart rate 101 /min Rhonda Owens Work Phone: [facility] 03-15-2024 08:53-0400 SaO2% (BldA) [Mass fraction] 97 % Rhonda Owens Work Phone: [facility] 03-15-2024 08:53-0400 Systolic blood pressure 149 mm[Hg] Rhonda Owens Work Phone: [facility] 03-15-2024 08:41-0400 Body mass index (BMI) [Ratio] 34.65 kg/m2 Lab/Port Wstr Work Phone: [facility] 03-15-2024 08:41-0400 Body weight 90.72 kg Lab/Port Wstr Work Phone: [facility] 03-08-2024 08:17-0400 Body height 161.8 cm Dayami Puri MD Work Phone: [facility] 03-08-2024 08:17-0400 Body mass index (BMI) [Ratio] 34.51 kg/m2 Dayami Puri MD Work Phone: [facility] 03-08-2024 08:17-0400 Body weight 90.36 kg Dayami Puri MD Work Phone: [facility] 03-08-2024 08:17-0400 Diastolic blood pressure 70 mm[Hg] Dayami Puri MD Work Phone: [facility] 03-08-2024 08:17-0400 Heart rate 93 /min Dayami Puri MD Work Phone: [facility] 03-08-2024 08:17-0400 Respiratory rate 20 /min Dayami Puri MD Work Phone: [facility] 03-08-2024 08:17-0400 SaO2% (BldA) [Mass fraction] 98 % Dayami Puri MD Work Phone: [facility] 03-08-2024 08:17-0400 Systolic blood pressure 128 mm[Hg] Dayami Puri MD Work Phone: [facility] 03-04-2024 11:51-0400 Body temperature 97.39 [degF] Lab/Port Wstr Work Phone: [facility] 03-04-2024 11:51-0400 Diastolic blood pressure 74 mm[Hg] Lab/Port Wstr Work Phone: [facility] 03-04-2024 11:51-0400 Heart rate 84 /min Lab/Port Wstr Work Phone: [facility] 03-04-2024 11:51-0400 Respiratory rate 20 /min Lab/Port Wstr Work Phone: [facility] 03-04-2024 11:51-0400 Systolic blood pressure 127 mm[Hg] Lab/Port Wstr Work Phone: [facility] 03-02-2024 08:50-0400 Body temperature 98.1 [degF] Treatment Wstr Work Phone: [facility] 03-02-2024 08:50-0400 Diastolic blood pressure 82 mm[Hg] Treatment Wstr Work Phone: [facility] 03-02-2024 08:50-0400 Heart rate 90 /min Treatment Wstr Work Phone: [facility] 03-02-2024 08:50-0400 Respiratory rate 14 /min Treatment Wstr Work Phone: [facility] 03-02-2024 08:50-0400 SaO2% (BldA) [Mass fraction] 95 % Treatment Wstr Work Phone: [facility] 03-02-2024 08:50-0400 Systolic blood pressure 140 mm[Hg] Treatment Wstr Work Phone: [facility] 03-01-2024 09:21-0400 Body mass index (BMI) [Ratio] 33.48 kg/m2 Rhonda Ownes Work Phone: [facility] 03-01-2024 09:21-0400 Body temperature 98.01 [degF] Rhonda Owens Work Phone: [facility] 03-01-2024 09:21-0400 Body weight 90.04 kg Rhonda Owens Work Phone: [facility] 03-01-2024 09:21-0400 Diastolic blood pressure 74 mm[Hg] Rhonda Owens Work Phone: [facility] 03-01-2024 09:21-0400 Heart rate 89 /min Rhonda Owens Work Phone: [facility] 03-01-2024 09:21-0400 SaO2% (BldA) [Mass fraction] 96 % Rhonda Owens Work Phone: [facility] 03-01-2024 09:21-0400 Systolic blood pressure 125 mm[Hg] Rhonda Owens Work Phone: [facility] 03-01-2024 09:08-0400 Body mass index (BMI) [Ratio] 33.48 kg/m2 Lab/Port Wstr Work Phone: [facility] 03-01-2024 09:08-0400 Body weight 90.04 kg Lab/Port Wstr Work Phone: [facility] 02-19-2024 10:00-0400 Body temperature 96.91 [degF] Lab/Port Wstr Work Phone: [facility] 02-19-2024 10:00-0400 Diastolic blood pressure 77 mm[Hg] Lab/Port Wstr Work Phone: [facility] 02-19-2024 10:00-0400 Heart rate 88 /min Lab/Port Wstr Work Phone: [facility] 02-19-2024 10:00-0400 Respiratory rate 16 /min Lab/Port Wstr Work Phone: [facility] 02-19-2024 10:00-0400 SaO2% (BldA) [Mass fraction] 96 % Lab/Port Wstr Work Phone: [facility] 02-19-2024 10:00-0400 Systolic blood pressure 128 mm[Hg] Lab/Port Wstr Work Phone: [facility] 02-17-2024 08:00-0400 Body temperature 97.3 [degF] Treatment Wstr Work Phone: [facility] 02-17-2024 08:00-0400 Diastolic blood pressure 62 mm[Hg] Treatment Wstr Work Phone: [facility] 02-17-2024 08:00-0400 Heart rate 92 /min Treatment Wstr Work Phone: [facility] 02-17-2024 08:00-0400 Systolic blood pressure 111 mm[Hg] Treatment Wstr Work Phone: [facility] 02-16-2024 09:36-0400 Body mass index (BMI) [Ratio] 33.9 kg/m2 Rhonda Owens Work Phone: [facility] 02-16-2024 09:36-0400 Body temperature 97.7 [degF] Rhonda Owens Work Phone: [facility] 02-16-2024 09:36-0400 Body weight 91.17 kg Rhonda Lucasight Work Phone: [facility] 02-16-2024 09:36-0400 Diastolic blood pressure 74 mm[Hg] Rhonda Owens Work Phone: [facility] 02-16-2024 09:36-0400 Heart rate 98 /min Rhonda Owens Work Phone: [facility] 02-16-2024 09:36-0400 SaO2% (BldA) [Mass fraction] 91 % Rhondakimberley Owens Work Phone: [facility] [facility] 02-16-2024 09:36-0400 Systolic blood pressure 120 mm[Hg] Rhonda Owens Work Phone: [facility] 02-02-2024 10:52-0400 Body mass index (BMI) [Ratio] 33.22 kg/m2 Aarti Salasi DO Work Phone: [facility] 02-02-2024 10:52-0400 Body temperature 97.81 [degF] Aarti Josuei DO Work Phone: [facility] 02-02-2024 10:52-0400 Body weight 89.36 kg Aarti Salasi DO Work Phone: [facility] 02-02-2024 10:52-0400 Diastolic blood pressure 76 mm[Hg] Aarti Salasi DO Work Phone: [facility] 02-02-2024 10:52-0400 Heart rate 99 /min Aarti Josuei DO Work Phone: [facility] 02-02-2024 10:52-0400 SaO2% (BldA) [Mass fraction] 91 % Aarti Salasi DO Work Phone: [facility] 02-02-2024 10:52-0400 Systolic blood pressure 116 mm[Hg] Aarti Josuei DO Work Phone: [facility] 01-22-2024 10:40-0400 Body temperature 97.39 [degF] Lab/Port Wstr Work Phone: [facility] 01-22-2024 10:40-0400 Diastolic blood pressure 88 mm[Hg] Lab/Port [facility]str Work Phone: [facility] 01-22-2024 10:40-0400 Heart rate 70 /min Lab/[facility] Work Phone: [facility] 01-22-2024 10:40-0400 Respiratory rate 16 /min Lab/[facility] Work Phone: [facility] 01-22-2024 10:40-0400 SaO2% (BldA) [Mass fraction] 95 % Lab[facility] Work Phone: [facility] 01-22-2024 10:40-0400 Systolic blood pressure 155 mm[Hg] Lab/Port [facility] Work Phone: [facility] 01-20-2024 08:22-0400 Body temperature 97.81 [degF] Treatment Wstr Work Phone: [facility] 01-20-2024 08:22-0400 Diastolic blood pressure 58 mm[Hg] Treatment Wstr Work Phone: [facility] 01-20-2024 08:22-0400 Heart rate 77 /min Treatment Wstr Work Phone: [facility] 01-20-2024 08:22-0400 Respiratory rate 18 /min Treatment Wstr Work Phone: [facility] 01-20-2024 08:22-0400 SaO2% (BldA) [Mass fraction] 96 % Treatment Wstr Work Phone: [facility] 01-20-2024 08:22-0400 Systolic blood pressure 125 mm[Hg] Treatment Wstr Work Phone: [facility] 01-19-2024 15:36-0400 Body mass index (BMI) [Ratio] 34.99 kg/m2 Aarti Masci DO Work Phone: [facility] 01-19-2024 15:36-0400 Body temperature 97.81 [degF] Aarti Masci DO Work Phone: [facility] 01-19-2024 15:36-0400 Body weight 94.12 kg Aarti Masci DO Work Phone: [facility] 01-19-2024 15:36-0400 Diastolic blood pressure 75 mm[Hg] Aarti Masci DO Work Phone: [facility] 01-19-2024 15:36-0400 Heart rate 74 /min Aarti Masci DO Work Phone: [facility] 01-19-2024 15:36-0400 SaO2% (BldA) [Mass fraction] 95 % Aarti Bar DO Work Phone: [facility] 01-19-2024 15:36-0400 Systolic blood pressure 134 mm[Hg] Aarti Bar DO Work Phone: [facility] 01-19-2024 15:27-0400 Body mass index (BMI) [Ratio] 34.99 kg/m2 Lab/Port Wstr Work Phone: [facility] 01-19-2024 15:27-0400 Body weight 94.12 kg Lab/Port [facility]str Work Phone: [facility] 01-08-2024 11:57-0400 Body temperature 97.59 [degF] Lab/Port Wstr Work Phone: [facility] 01-08-2024 11:57-0400 Diastolic blood pressure 73 mm[Hg] Lab/Port Wstr Work Phone: [facility] 01-08-2024 11:57-0400 Heart rate 88 /min Lab/Port Wstr Work Phone: [facility] 01-08-2024 11:57-0400 Respiratory rate 18 /min Lab/Port W[facility] Work Phone: [facility] 01-08-2024 11:57-0400 SaO2% (BldA) [Mass fraction] 98 % Lab/Port [facility] Work Phone: [facility] 01-08-2024 11:57-0400 Systolic blood pressure 136 mm[Hg] Lab/Port Wstr Work Phone: [facility] 01-06-2024 09:11-0400 Body mass index (BMI) [Ratio] 34.74 kg/m2 Treatment Wstr Work Phone: [facility] 01-06-2024 09:11-0400 Body temperature 97.81 [degF] Treatment Wstr Work Phone: [facility] 01-06-2024 09:11-0400 Body weight 93.44 kg Treatment Wstr Work Phone: [facility] 01-06-2024 09:11-0400 Diastolic blood pressure 60 mm[Hg] Treatment Wstr Work Phone: [facility] 01-06-2024 09:11-0400 Heart rate 92 /min Treatment Wstr Work Phone: [facility] 01-06-2024 09:11-0400 Respiratory rate 18 /min Treatment Wstr Work Phone: [facility] 01-06-2024 09:11-0400 SaO2% (BldA) [Mass fraction] 94 % Treatment Wstr Work Phone: [facility] 01-06-2024 09:11-0400 Systolic blood pressure 140 mm[Hg] Treatment Wstr Work Phone: [facility] 01-01-2024 08:29-0400 Body height 170.2 cm Dayami Roe MD Work Phone: [facility] 01-01-2024 08:29-0400 Body mass index (BMI) [Ratio] 32.8 kg/m2 Dayami Roe MD Work Phone: 7(108)574-126527 [place] [address] 01-01-2024 08:29-0400 Body weight 94.98 kg Dayami Roe MD Work Phone: 4(529)130-108727 [place] [address] 01-01-2024 08:29-0400 Diastolic blood pressure 68 mm[Hg] Dayami Roe MD Work Phone: 2(752)191-188127 [place] [address] 01-01-2024 08:29-0400 Heart rate 81 /min Dayami Roe MD Work Phone: [facility] 01-01-2024 08:29-0400 SaO2% (BldA) [Mass fraction] 93 % Dayami Roe MD Work Phone: [facility] 01-01-2024 08:29-0400 Systolic blood pressure 134 mm[Hg] Dayami Roe MD Work Phone: 8(131)248-217827 [place] [address] 12-30-2023 13:50-0400 Body temperature 98.6 [degF] Treatment Wstr Work Phone: [facility] 12-30-2023 13:50-0400 Diastolic blood pressure 77 mm[Hg] Treatment Wstr Work Phone: [facility] 12-30-2023 13:50-0400 Heart rate 96 /min Treatment Wstr Work Phone: [facility] 12-30-2023 13:50-0400 SaO2% (BldA) [Mass fraction] 95 % Treatment Wstr Work Phone: [facility] 12-30-2023 13:50-0400 Systolic blood pressure 146 mm[Hg] Treatment Wstr Work Phone: [facility] 12-25-2023 14:00-0400 Body temperature 97.81 [degF] Treatment Wstr Work Phone: [facility] 12-25-2023 14:00-0400 Diastolic blood pressure 53 mm[Hg] Treatment Wstr Work Phone: [facility] 12-25-2023 14:00-0400 Heart rate 77 /min Treatment Wstr Work Phone: [facility] 12-25-2023 14:00-0400 Systolic blood pressure 141 mm[Hg] Treatment Wstr Work Phone: [facility] 12-23-2023 13:53-0400 Body temperature 97.11 [degF] Treatment Wstr Work Phone: [facility] 12-23-2023 13:53-0400 Diastolic blood pressure 70 mm[Hg] Treatment Wstr Work Phone: [facility] 12-23-2023 13:53-0400 Heart rate 80 /min Treatment Wstr Work Phone: [facility] 12-23-2023 13:53-0400 Systolic blood pressure 131 mm[Hg] Treatment Wstr Work Phone: [facility] 12-21-2023 10:49-0400 Body temperature 98.01 [degF] Treatment Wstr Work Phone: [facility] 12-21-2023 10:49-0400 Diastolic blood pressure 76 mm[Hg] Treatment Wstr Work Phone: [facility] 12-21-2023 10:49-0400 Heart rate 75 /min Treatment Wstr Work Phone: [facility] 12-21-2023 10:49-0400 Respiratory rate 18 /min Treatment Wstr Work Phone: [facility] 12-21-2023 10:49-0400 Systolic blood pressure 139 mm[Hg] Treatment Wstr Work Phone: [facility] 12-15-2023 14:07-0400 Body height 164 cm Aarti Salasi DO Work Phone: [facility] 12-15-2023 14:07-0400 Body mass index (BMI) [Ratio] 35.08 kg/m2 Aarti Josuei DO Work Phone: [facility] 12-15-2023 14:07-0400 Body temperature 98.8 [degF] Aarti Masci DO Work Phone: [facility] 12-15-2023 14:07-0400 Body weight 94.35 kg Aarti Masci DO Work Phone: [facility] 12-15-2023 14:07-0400 Diastolic blood pressure 76 mm[Hg] Aarit Masci DO Work Phone: [facility] 12-15-2023 14:07-0400 Heart rate 96 /min Aarti Masci DO Work Phone: [facility] 12-15-2023 14:07-0400 SaO2% (BldA) [Mass fraction] 94 % Aarti Masci DO Work Phone: [facility] 12-15-2023 14:07-0400 Systolic blood pressure 132 mm[Hg] Aarti Masci DO Work Phone: [facility] 11-30-2023 10:35-0400 Body height 170.2 cm Hayden Balderas DO Work Phone: [facility] 11-30-2023 10:35-0400 Body mass index (BMI) [Ratio] 32.44 kg/m2 Hayden Chinol DO Work Phone: [facility] 11-30-2023 10:35-0400 Body temperature 98.29 [degF] Hayden Kumarpel DO Work Phone: [facility] 11-30-2023 10:35-0400 Body weight 93.94 kg Hayden Chinol DO Work Phone: [facility] 11-30-2023 10:35-0400 Diastolic blood pressure 76 mm[Hg] Hayden Chinol DO Work Phone: [facility] 11-30-2023 10:35-0400 Heart rate 99 /min Hayden Chinol DO Work Phone: [facility] 11-30-2023 10:35-0400 SaO2% (BldA) [Mass fraction] 89 % Hayden Balderas DO Work Phone: [facility] 11-30-2023 10:35-0400 Systolic blood pressure 160 mm[Hg] Hayden Chinol DO Work Phone: [facility] 11-13-2023 11:06-0400 Body height 170.2 cm Dayami Roe MD Work Phone: [facility] 11-13-2023 11:06-0400 Body mass index (BMI) [Ratio] 32.56 kg/m2 Dayami Roe MD Work Phone: [facility] 11-13-2023 11:06-0400 Body weight 94.3 kg Dayami Roe MD Work Phone: [facility] 11-13-2023 11:06-0400 Diastolic blood pressure 60 mm[Hg] Dayami Roe MD Work Phone: [facility] 11-13-2023 11:06-0400 Heart rate 105 /min Dayami Roe MD Work Phone: [facility] 11-13-2023 11:06-0400 SaO2% (BldA) [Mass fraction] 93 % Dayami Roe MD Work Phone: [facility] 11-13-2023 11:06-0400 Systolic blood pressure 130 mm[Hg] Dayami Roe MD Work Phone: [facility] 11-11-2023 14:49-0400 Body mass index (BMI) [Ratio] 33.22 kg/m2 Hayden Voelpel DO Work Phone: [facility] 11-11-2023 14:49-0400 Body temperature 97.7 [degF] Hayden Voelpel DO Work Phone: [facility] 11-11-2023 14:49-0400 Body weight 96.21 kg Hayden Voelpel DO Work Phone: [facility] 11-11-2023 14:49-0400 Diastolic blood pressure 77 mm[Hg] Hayden Voelpel DO Work Phone: [facility] 11-11-2023 14:49-0400 Heart rate 105 /min Hayden Voelpel DO Work Phone: [facility] 11-11-2023 14:49-0400 SaO2% (BldA) [Mass fraction] 91 % Hayden Voelpel DO Work Phone: [facility] 11-11-2023 14:49-0400 Systolic blood pressure 130 mm[Hg] Hayden Voelpel DO Work Phone: [facility] 11-09-2023 10:31-0400 Body height 170.2 cm Austen Hall MD Work Phone: [facility] 11-09-2023 10:31-0400 Body mass index (BMI) [Ratio] 33.53 kg/m2 Austen Hall MD Work Phone: [facility] 11-09-2023 10:31-0400 Body weight 97.11 kg Austen Hall MD Work Phone: [facility] 11-09-2023 10:31-0400 Diastolic blood pressure 76 mm[Hg] Austen Hall MD Work Phone: [facility] 11-09-2023 10:31-0400 Heart rate 99 /min Austen Hall MD Work Phone: [facility] 11-09-2023 10:31-0400 SaO2% (BldA) [Mass fraction] 92 % Austen Hall MD Work Phone: [facility] 11-09-2023 10:31-0400 Systolic blood pressure 146 mm[Hg] Austen Hall MD Work Phone: [facility] 10-29-2023 17:12-0400 Diastolic blood pressure 51 mm[Hg] Arias Jyoti DO Work Phone: [facility] 10-29-2023 17:12-0400 Heart rate 86 /min Arias Jyoti DO Work Phone: [facility] 10-29-2023 17:12-0400 Respiratory rate 18 /min Arias Jyoti DO Work Phone: [facility] 10-29-2023 17:12-0400 SaO2% (BldA) [Mass fraction] 93 % Arias Jyoti DO Work Phone: [facility] 10-29-2023 17:12-0400 Systolic blood pressure 151 mm[Hg] Arias Jyoti DO Work Phone: [facility] 10-29-2023 05:22-0400 Body temperature 97.81 [degF] Arias Jyoti DO Work Phone: [facility] 10-19-2023 08:51-0400 Body height 170.2 cm Arias Jyoti DO Work Phone: [facility] 10-19-2023 08:51-0400 Body mass index (BMI) [Ratio] 36.02 kg/m2 Arias Jyoti DO Work Phone: [facility] 10-19-2023 08:51-0400 Body weight 104.33 kg Arias Jyoti DO Work Phone: [facility] 09-28-2023 11:41-0400 Body height 170.2 cm Dayami Roe MD Work Phone: [facility] 09-28-2023 11:41-0400 Body mass index (BMI) [Ratio] 35.93 kg/m2 Dayami Roe MD Work Phone: 5(742)346-652227 [place] [address] 09-28-2023 11:41-0400 Body weight 104.06 kg Dayami Roe MD Work Phone: 4(128)121-633627 [place] [address] 09-28-2023 11:41-0400 Diastolic blood pressure 52 mm[Hg] Dayami oRe MD Work Phone: 6(567)313-427007 [address] 09-28-2023 11:41-0400 Heart rate 91 /min Dayami Roe MD Work Phone: 5(475)044-515007 [address] 09-28-2023 11:41-0400 SaO2% (BldA) [Mass fraction] 92 % Dayami Roe MD Work Phone: 2(977)507-567627 [place] [address] 09-28-2023 11:41-0400 Systolic blood pressure 130 mm[Hg] Dayami Roe MD Work Phone: 0(279)859-079627 [place] [address] 07-03-2023 08:22-0500 Body height 170.2 cm Dayami Roe MD Work Phone: 9(970)289-296727 [place] [address] 07-03-2023 08:22-0500 Body mass index (BMI) [Ratio] 36.96 kg/m2 Dayami Roe MD Work Phone: 0(184)137-435427 [place] [address] 07-03-2023 08:22-0500 Body weight 107.05 kg Dayami Roe MD Work Phone: 4(174)885-142627 [place] [address] 07-03-2023 08:22-0500 Diastolic blood pressure 60 mm[Hg] Dayami Roe MD Work Phone: 4(418)[phone] [place] [address] 07-03-2023 08:22-0500 Heart rate 92 /min Dayami Roe MD Work Phone: [facility] 07-03-2023 08:22-0500 SaO2% (BldA) [Mass fraction] 93 % Dayami Roe MD Work Phone: [facility] 07-03-2023 08:22-0500 Systolic blood pressure 124 mm[Hg] Dayami Roe MD Work Phone: [facility] 05-18-2023 10:49-0500 Diastolic blood pressure 75 mm[Hg] David Argueta MD Work Phone: [facility] 05-18-2023 10:49-0500 Heart rate 95 /min David Argueta MD Work Phone: [facility] 05-18-2023 10:49-0500 SaO2% (BldA) [Mass fraction] 92 % David Argueta MD Work Phone: [facility] 05-18-2023 10:49-0500 Systolic blood pressure 138 mm[Hg] David Argueta MD Work Phone: [facility] 05-18-2023 10:41-0500 Body height 167.6 cm David Argueta MD Work Phone: [facility] 05-18-2023 10:41-0500 Body mass index (BMI) [Ratio] 38.64 kg/m2 David Argueta MD Work Phone: [facility] 05-18-2023 10:41-0500 Body weight 108.59 kg David Argueta MD Work Phone: [facility] 12-31-2022 09:40-0400 Body height 170.2 cm Dayami Roe MD Work Phone: [facility] 12-31-2022 09:40-0400 Body mass index (BMI) [Ratio] 37.2 kg/m2 Dayami Roe MD Work Phone: [facility] 12-31-2022 09:40-0400 Body weight 107.73 kg Dayami Roe MD Work Phone: [facility] 12-31-2022 09:40-0400 Diastolic blood pressure 56 mm[Hg] Dayami Roe MD Work Phone: [facility] 12-31-2022 09:40-0400 Heart rate 85 /min Dayami Roe MD Work Phone: [facility] 12-31-2022 09:40-0400 SaO2% (BldA) [Mass fraction] 94 % Dayami Roe MD Work Phone: [facility] 12-31-2022 09:40-0400 Systolic blood pressure 120 mm[Hg] Daymai Roe MD Work Phone: [facility] 07-03-2022 09:28-0500 Body height 170.18 cm Dayami Roe Work Phone: [facility] Work Phone: 07-03-2022 09:28-0500 Body mass index (BMI) [Ratio] 38.11 kg/m2 Dayami Roe Work Phone: [facility] Work Phone: 07-03-2022 09:28-0500 Body surface area Derived from formula 2.2 m2 Dayami Roe Work Phone: [facility] Work Phone: 07-03-2022 09:28-0500 Body weight 110.37 kg Dayami Roe Work Phone: [facility] Work Phone: 07-03-2022 09:28-0500 Diastolic blood pressure 60 mm[Hg] Dayami Roe Work Phone: [facility] Work Phone: 07-03-2022 09:28-0500 Heart rate 89 /min Dayami Roe Work Phone: [facility] Work Phone: 07-03-2022 09:28-0500 SaO2% (BldA) [Mass fraction] 94 % Dayami Roe Work Phone: [facility] Work Phone: 07-03-2022 09:28-0500 Systolic blood pressure 140 mm[Hg] Dayami Roe Work Phone: [facility] Work Phone: 05-27-2022 08:24-0500 Body height 167.6 cm Dipti Hoffman MD Work Phone: [facility] 05-27-2022 08:24-0500 Body mass index (BMI) [Ratio] 38.9 kg/m2 Dipti Hoffman MD Work Phone: [facility] 05-27-2022 08:24-0500 Body weight 109.32 kg Dipti Hoffman MD Work Phone: [facility] 05-27-2022 08:24-0500 Diastolic blood pressure 80 mm[Hg] Dipti Hoffman MD Work Phone: [facility] 05-27-2022 08:24-0500 Heart rate 81 /min Dipti Hoffman MD Work Phone: [facility] 05-27-2022 08:24-0500 SaO2% (BldA) [Mass fraction] 93 % Dipti Hoffman MD Work Phone: [facility] 05-27-2022 08:24-0500 Systolic blood pressure 159 mm[Hg] Dipti Hoffman MD Work Phone: [facility] 04-24-2022 11:16-0400 Body height 170.18 cm Dayami [...] 04-24-2022 11:16-0400 Diastolic blood pressure 81 mm[Hg] Getachewjessica Linsey Roe Work Phone: [facility] Work Phone: 04-24-2022 11:16-0400 Heart rate 76 /min Dayami Roe Work Phone: [facility] Work Phone: 04-24-2022 11:16-0400 Respiratory rate 20 /min Getachewjessica Linsey Roe Work Phone: [facility] Work Phone: 04-24-2022 11:16-0400 Systolic blood pressure 176 mm[Hg] Getachewjessica Linsey Roe Work Phone: [facility] Work Phone: 04-01-2022 10:58-0400 Body height 170.18 cm Dayami Roe Work Phone: [facility] Work Phone: 04-01-2022 10:58-0400 Body mass index (BMI) [Ratio] 37.75 kg/m2 Dayami Roe Work Phone: [facility] Work Phone: 04-01-2022 10:58-0400 Body surface area Derived from formula 2.19 m2 Dayami Roe Work Phone: [facility] Work Phone: 04-01-2022 10:58-0400 Body weight 109.32 kg Dayami Roe Work Phone: [facility] Work Phone: 04-01-2022 10:58-0400 Diastolic blood pressure 60 mm[Hg] Dayami Roe Work Phone: [facility] Work Phone: 04-01-2022 10:58-0400 Heart rate 91 /min Dayami Roe Work Phone: [facility] Work Phone: 04-01-2022 10:58-0400 SaO2% (BldA) [Mass fraction] 95 % Dayami Roe Work Phone: [facility] [employer] [facility] Work Phone: 04-01-2022 10:58-0400 Systolic blood pressure 140 mm[Hg] Dayami Roe Work Phone: [facility] [employer] [facility] Work Phone: 03-25-2022 15:41-0400 Body height 170.18 cm Dayami Roe Work Phone: [facility] [employer] [facility] Work Phone: 03-25-2022 15:41-0400 Body mass index (BMI) [Ratio] 37.36 kg/m2 Dayami Roe Work Phone: [facility] Work Phone: 03-25-2022 15:41-0400 Body surface area Derived from formula 2.18 m2 Dayami Roe Work Phone: [facility] Work Phone: 03-25-2022 15:41-0400 Body weight 108.21 kg Dayami Roe Work Phone: [facility] Work Phone: 03-25-2022 15:41-0400 Diastolic blood pressure 60 mm[Hg] Dayami Roe Work Phone: [facility] Work Phone: 03-25-2022 15:41-0400 Heart rate 97 /min Dayami Roe Work Phone: [facility] Work Phone: 03-25-2022 15:41-0400 SaO2% (BldA) [Mass fraction] 95 % Dayami Roe Work Phone: [facility] [employer] [facility] Work Phone: 03-25-2022 15:41-0400 Systolic blood pressure 140 mm[Hg] Dayami Roe Work Phone: [facility] [employer] [facility] Work Phone: 02-21-2022 11:25-0400 Body height 170.18 cm Dayami Roe Work Phone: [facility] [employer] [facility] Work Phone: 02-21-2022 11:25-0400 Body mass index (BMI) [Ratio] 37.35 kg/m2 Dayami Roe Work Phone: [facility] [employer] [facility] Work Phone: 02-21-2022 11:25-0400 Body surface area Derived from formula 2.18 m2 Dayami Roe Work Phone: [employer] [employer] [facility] Work Phone: 02-21-2022 11:25-0400 Body weight 108.18 kg Dayami Roe Work Phone: [facility] [facility] Work Phone: 02-21-2022 11:25-0400 Diastolic blood pressure 60 mm[Hg] Dayami Roe Work Phone: [facility] Work Phone: 02-21-2022 11:25-0400 Heart rate 80 /min Dayami Roe Work Phone: [facility] [employer] [facility] Work Phone: 02-21-2022 11:25-0400 SaO2% (BldA) [Mass fraction] 94 % Dayami Roe Work Phone: [facility] [employer] [facility] Work Phone: 02-21-2022 11:25-0400 Systolic blood pressure 140 mm[Hg] Dayami Roe Work Phone: [facility] [employer] [facility] Work Phone: 01-22-2022 08:51-0400 Body height 170.18 cm Dayami Roe Work Phone: [facility] [employer] [facility] Work Phone: 01-22-2022 08:51-0400 Body mass index (BMI) [Ratio] 37.29 kg/m2 Dayami Roe Work Phone: [employer] [facility] Work Phone: 01-22-2022 08:51-0400 Body surface area Derived from formula 2.18 m2 Dayami Roe Work Phone: [facility] [employer] [facility] Work Phone: 01-22-2022 08:51-0400 Body weight 107.98 kg Dayami Roe Work Phone: [employer] [facility] Work Phone: 01-22-2022 08:51-0400 Diastolic blood pressure 68 mm[Hg] Dayami Roe Work Phone: [employer] [facility] Work Phone: 01-22-2022 08:51-0400 Heart rate 97 /min Dayami Roe Work Phone: [facility] Work Phone: 01-22-2022 08:51-0400 SaO2% (BldA) [Mass fraction] 94 % Dayami Roe Work Phone: [facility] Work Phone: 01-22-2022 08:51-0400 Systolic blood pressure 140 mm[Hg] Dayami Roe Work Phone: [facility] Work Phone: 08-08-2021 15:13-0500 Body height 170.18 cm Dayami Roe Work Phone: [facility] [employer] [facility] Work Phone: 08-08-2021 15:13-0500 Body mass index (BMI) [Ratio] 37.31 kg/m2 Dayami Roe Work Phone: [facility] [employer] [facility] Work Phone: 08-08-2021 15:13-0500 Body surface area Derived from formula 2.18 m2 Dayami Roe Work Phone: [employer] [employer] [facility] Work Phone: 08-08-2021 15:13-0500 Body temperature 96.8 [degF] Dayami Roe Work Phone: [facility] Work Phone: 08-08-2021 15:13-0500 Body weight 108.04 kg Dayami Roe Work Phone: [facility] [employer] [facility] Work Phone: 08-08-2021 15:13-0500 Diastolic blood pressure 68 mm[Hg] Dayami Roe Work Phone: [facility] [employer] [facility] Work Phone: 08-08-2021 15:13-0500 Heart rate 75 /min Dayami Roe Work Phone: [facility] Work Phone: 08-08-2021 15:13-0500 SaO2% (BldA) [Mass fraction] 95 % Dayami Roe Work Phone: [facility] Work Phone: 08-08-2021 15:13-0500 Systolic blood pressure 134 mm[Hg] Dayami Roe Work Phone: [facility] Work Phone: 07-25-2021 10:05-0500 Body height 170.18 cm Dayami Roe Work Phone: [facility] [employer] [facility] Work Phone: 07-25-2021 10:05-0500 Body mass index (BMI) [Ratio] 37.05 kg/m2 Dayami Roe Work Phone: [facility] [employer] [facility] Work Phone: 07-25-2021 10:05-0500 Body surface area Derived from formula 2.17 m2 Dayami Roe Work Phone: -[facility] [employer] [facility] Work Phone: 07-25-2021 10:05-0500 Body temperature 96.2 [degF] Dayami Roe Work Phone: [facility] [employer] [facility] Work Phone: 07-25-2021 10:05-0500 Body weight 107.3 kg Dayami Roe Work Phone: [facility] [employer] [facility] Work Phone: 07-25-2021 10:05-0500 Diastolic blood pressure 76 mm[Hg] Dayami Roe Work Phone: [facility] Work Phone: 07-25-2021 10:05-0500 Heart rate 94 /min Dayami Roe Work Phone: [facility] [employer] [facility] Work Phone: 07-25-2021 10:05-0500 SaO2% (BldA) [Mass fraction] 95 % Dayami Roe Work Phone: [facility] Work Phone: 07-25-2021 10:05-0500 Systolic blood pressure 140 mm[Hg] Getachewjessica Linsey Roe Work Phone: [facility] [employer] [facility] Work Phone: 12-26-2020 08:55-0400 Body height 170.18 cm Dayami Stiles Roe Work Phone: [employer] [employer] [facility] Work Phone: 12-26-2020 08:55-0400 Body mass index (BMI) [Ratio] 35.74 kg/m2 Dayami Kumard Work Phone: [employer] [facility] Work Phone: 12-26-2020 08:55-0400 Body surface area Derived from formula 2.14 m2 Dayami Linsey Roe Work Phone: -[facility] [employer] [facility] Work Phone: 12-26-2020 08:55-0400 Body temperature 97.1 [degF] Dayami Roe Work Phone: [facility] [employer] [facility] Work Phone: 12-26-2020 08:55-0400 Body weight 103.51 kg Yonatanalessandra Linsey Roe Work Phone: -[facility] [employer] [facility] Work Phone: 12-26-2020 08:55-0400 Diastolic blood pressure 64 mm[Hg] Dayami Roe Work Phone: [employer] [facility] Work Phone: 12-26-2020 08:55-0400 Heart rate 84 /min Dayami Roe Work Phone: [employer] [facility] Work Phone: 12-26-2020 08:55-0400 SaO2% (BldA) [Mass fraction] 95 % Dayami Roe Work Phone: [facility] [facility] Work Phone: 12-26-2020 08:55-0400 Systolic blood pressure 130 mm[Hg] Dayami Roe Work Phone: [employer] [facility] Work Phone: Encounters Encounter Date Encounter Type Care Provider Facility Start: 05-04-2025 End: 05-04-2025 ambulatory AARTI A MASCI Facility:[facility] Start: 05-02-2025 End: 05-02-2025 ambulatory [facility] Facility:[facility] Start: 04-27-2025 End: 04-27-2025 ambulatory AARTI A MASCI Facility:[facility] Start: 04-21-2025 End: 04-21-2025 ambulatory Aarti Masci Facility:[facility] Start: 04-20-2025 End: 04-20-2025 ambulatory AARTI A MASCI Facility:[facility] Start: 04-11-2025 End: 04-11-2025 ambulatory AARTI A MASCI Facility:[facility] Start: 04-07-2025 End: 04-07-2025 ambulatory AARTI A MASCI Facility:[facility] Start: 03-24-2025 End: 03-24-2025 Emergency department patient visit Dr. Chaitanya Puri MD Work Phone: -Emergency Department Work Phone: Start: 02-14-2025 End: 02-14-2025 Patient encounter procedure Liliana Burden [facility] Comment on above: SPP Oral Oncology/he matology - Treatment Referral (Lonsurf); Insurance Authorization ([place] pending) Start: 02-14-2025 End: 02-14-2025 Telephone encounter Jackie Noyola RN Work Phone: Hematology/Oncology Comment on above: Care Coordination (Mainor ksenia in Treatment) Start: 02-14-2025 End: 02-14-2025 Office outpatient visit 25 minutes Aarti Bar DO Work Phone: Hematology/Oncology Comment on above: Cancer of cecum (HCC ) (Primary Dx); Colon cancer metastasized to lung (HCC); Metastatic colon cancer to liver (HCC) Start: 02-14-2025 End: 02-14-2025 ambulatory Lab/Port [facility] Work Phone: Hematology/Oncology Comment on above: Metastatic colon can cer to liver (HCC) (Primary Dx); Cancer of cecum (HCC); Colon cancer metastasized to lung (HCC); Anemia due to vitamin B12 deficiency, unspecified B12 deficiency type; History of iron deficiency Start: 02-07-2025 End: 02-07-2025 Subsequent hospital visit by physician Ct Prep Pending [facility] To [facility] Cat Scan Comment on above: Metastatic colon can cer to liver (HCC) [C18.9, C78.7] Start: 02-07-2025 End: 02-07-2025 ambulatory Lab/Port [facility] Roberto [facility] Work Phone: Hematology/Oncology Comment on above: Metastatic colon can cer to liver (HCC) (Primary Dx) Start: 02-06-2025 End: 02-06-2025 Telephone encounter Aarti Bar DO Work Phone: Hematology/Oncology Comment on above: Appointment Start: 01-19-2025 End: 01-19-2025 Telephone encounter Dayami Puri MD Work Phone: [address] [place] [address] Comment on above: Patient Update Start: 01-17-2025 End: 01-18-2025 Telephone encounter Aarti Bar DO Work Phone: Hematology/Oncology Comment on above: AVS 01/17 Start: 01-17-2025 End: 01-17-2025 Patient encounter procedure Aarti Bar DO Work Phone: Hematology/Oncology Start: 01-17-2025 End: 01-17-2025 ambulatory Aarti Bar DO Work Phone: Hematology/Oncology Comment on above: Metastatic colon can cer to liver (HCC) (Primary Dx); Cancer of cecum (HCC); Iron deficiency anemia due to chronic blood loss Metastatic colon can cer to liver (HCC); Cancer of cecum (HCC); Iron deficiency anemia due to chronic blood loss Start: 01-16-2025 End: 01-16-2025 Patient encounter procedure Mady Armenta APRNJohnathanMIXER FOAM RUBBER Work Phone: [facility] Comment on above: Hospital discharge f ollow-up (Primary Dx); Anemia in neoplastic disease; Pneumonia due to infectious organism, unspecified laterality, unspecified part of lung Start: 01-16-2025 End: 01-16-2025 ambulatory MADY ARMENTA Facility:[facility] Start: 01-12-2025 End: 01-12-2025 Telephone encounter Dayami Puri MD Work Phone: [employer] Comment on above: Initial Consult Start: 01-10-2025 Non-patient / Non-visit Dr. Rina Ty DO -[facility] Work Phone: Start: 01-10-2025 Non-patient / Non-visit Dr. Gordo lindquist DO -[facility] Start: 01-09-2025 Non-patient / Non-visit Dr. Srinivasan Baker MD -[facility] Work Phone: Start: 01-09-2025 ambulatory Lencho Ty Facilit y:[facility] Start: 01-09-2025 End: 01-10-2025 Evaluation and management of inpatient Dr. Srinivasan Baker MD -Intensive Care Unit Work Phone: Start: 01-09-2025 End: 03-11-2025 Follow-up encounter Dayami Puri MD Work Phone: [facility] Comment on above: Results Start: 01-09-2025 End: 01-09-2025 Subsequent hospital visit by physician Lyric [facility] Work Phone: Radiology Comment on above: Productive cough [R0 5.8] Start: 01-09-2025 End: 01-09-2025 Patient encounter procedure Dayami Puri MD Work Phone: [facility] Comment on above: Nausea and vomiting, unspecified vomiting type (Primary Dx); Diarrhea, unspecified type; SOB (shortness of breath); Productive cough; Hypokalemia; Hyponatremia; Tachycardia; Dehydration; Colon cancer metastasized to lung (HCC); Anemia due to antineoplastic chemotherapy; Pallor; Controlled type 2 diabetes mellitus without complication, with long-term current use of insulin (HCC); Essential hypertension Start: 01-09-2025 End: 01-09-2025 [facility] Start: 01-06-2025 End: 01-06-2025 ambulatory YONATAN Dinesh PURI Facility:[facility] Start: 01-02-2025 End: 01-02-2025 Telephone encounter Dayami Puri MD Work Phone: [facility] Comment on above: Orders Start: 12-21-2024 End: 12-22-2024 Telephone encounter Jocelin Beach RN Hematology/Oncology Comment on above: [employer] (ED Follow-up ) Start: 12-20-2024 End: 12-21-2024 Telephone encounter Aarti Bar DO Work Phone: Hematology/Oncology Comment on above: Patient Update Start: 12-20-2024 End: 12-20-2024 Emergency department patient visit DAYAMI PURI Facility:[facility] Start: 12-19-2024 End: 12-19-2024 Telephone encounter Jackei Noyola RN Work Phone: Hematology/Oncology Comment on above: Care Coordination (F ollow up Note ) Start: 12-16-2024 End: 12-16-2024 Telephone encounter Jackie Noyola RN Work Phone: Hematology/Oncology Comment on above: Care Coordination (F ollow up Note) Start: 12-15-2024 End: 12-15-2024 Telephone encounter Aarti Bar DO Work Phone: Hematology/Oncology Comment on above: Care Coordination (D iarrhea/Nausea) Start: 12-15-2024 End: 12-15-2024 ambulatory Treatment Rm 15 [facility] Work Phone: Hematology/Oncology Comment on above: Cancer of cecum (HCC ) (Primary Dx); Colon cancer metastasized to lung (HCC); Iron deficiency anemia due to chronic blood loss; Iron malabsorption (HCC); Metastatic colon cancer to liver (HCC); History of iron deficiency; Anemia due to vitamin B12 deficiency, unspecified B12 deficiency type Start: 12-07-2024 End: 12-07-2024 ambulatory Lab/Port [facility] Work Phone: Hematology/Oncology Comment on above: Cancer of cecum (HCC ) (Primary Dx); Colon cancer metastasized to lung (HCC); Metastatic colon cancer to liver (HCC) Start: 12-06-2024 End: 12-06-2024 Telephone encounter Jocelin Beach RN Hematology/Oncology Comment on above: [employer] (C1D1 Post Treatment Call (Folfir) ) Start: 12-05-2024 End: 12-05-2024 Telephone encounter Aarti Bar DO Work Phone: Hematology/Oncology Comment on above: Results Start: 12-05-2024 End: 12-05-2024 ambulatory Treatment Rm 2 [facility] Work Phone: Hematology/Oncology Comment on above: Cancer of cecum (HCC ) (Primary Dx); Colon cancer metastasized to lung (HCC); Metastatic colon cancer to liver (HCC); Anemia due to vitamin B12 deficiency, unspecified B12 deficiency type; History of iron deficiency; Anemia due to antineoplastic chemotherapy Start: 11-30-2024 End: 11-30-2024 ambulatory Treatment Rm 9 [facility] Work Phone: Hematology/Oncology Comment on above: Cancer of cecum (HCC ); Colon cancer metastasized to lung (HCC); Metastatic colon cancer to liver (HCC); Anemia due to vitamin B12 deficiency, unspecified B12 deficiency type; History of iron deficiency Start: 11-24-2024 End: 11-24-[address] Aarti Bar DO -Medical Out Work Phone: Start: 11-24-2024 End: 11-24-[address] Chaitanya Roe MD Work Phone: [facility] Work Phone: Start: 11-23-2024 End: 12-12-2024 Telephone encounter Aarti Bar DO Work Phone: Hematology/Oncology Comment on above: Appointment; Transfu geoff Insurance Authorizat ion Start: 11-23-2024 End: 11-23-2024 ambulatory Treatment Rm 9 [facility] Work Phone: Hematology/Oncology Comment on above: Anemia due to vitami n B12 deficiency, unspecified B12 deficiency type (Primary Dx); Cancer of cecum (HCC); Colon cancer metastasized to lung (HCC); Metastatic colon cancer to liver (HCC); History of iron deficiency Start: 11-14-2024 End: 12-12-2024 Refill Dayami Puri MD Work Phone: [facility] Comment on above: Refill Request Appointment Start: 11-09-2024 End: 11-09-2024 Telephone encounter Jocelin Beach RN Hematology/Oncology Comment on above: [employer] (Change in treatment ) [...] deficiency Start: 11-09-2024 End: 11-09-2024 ambulatory Lab/Port [facility] Work Phone: Hematology/Oncology Comment on above: Cancer of cecum (HCC ) (Primary Dx); Colon cancer metastasized to lung (HCC); Metastatic colon cancer to liver (HCC); Anemia due to vitamin B12 deficiency, unspecified B12 deficiency type; History of iron deficiency Start: 11-07-2024 End: 11-08-2024 Refill Dayami Puri MD Work Phone: [facility] Comment on above: Refill Request Start: 11-02-2024 End: 11-02-2024 Subsequent hospital visit by physician Tiffanie [facility]ending [facility] (I-Stat) Work Phone: Cat Scan Comment on above: Cancer of cecum (HCC ) [C18.0] Start: 11-02-2024 End: 11-02-2024 ambulatory Lab/Port [facility] Work Phone: Hematology/Oncology Comment on above: Cancer of cecum (HCC ) (Primary Dx) Start: 10-28-2024 End: 10-28-2024 ambulatory Lab/Port [facility] Work Phone: Hematology/Oncology Comment on above: Cancer of cecum (HCC ) (Primary Dx); Colon cancer metastasized to lung (HCC); Metastatic colon cancer to liver (HCC) Start: 10-26-2024 End: 10-26-2024 ambulatory Treatment Rm 5 [facility] Work Phone: Hematology/Oncology Comment on above: Metastatic colon can cer to liver (HCC) (Primary Dx); Cancer of cecum (HCC); Colon cancer metastasized to lung (HCC); Anemia due to vitamin B12 deficiency, unspecified B12 deficiency type; History of iron deficiency Start: 10-14-2024 End: 10-14-2024 ambulatory Lab/Port [facility] Work Phone: Hematology/Oncology Comment on above: [...] 10-12-2024 End: 10-12-2024 ambulatory Lab/Port [facility] Work Phone: Hematology/Oncology Comment on above: [...] 09-30-2024 End: 09-30-2024 ambulatory Lab/Port [facility] Work Phone: Hematology/Oncology Comment on above: Cancer of cecum (HCC ) (Primary Dx); Colon cancer metastasized to lung (HCC); Metastatic colon cancer to liver (HCC) Start: 09-28-2024 End: 09-28-2024 ambulatory Treatment Rm 9 [facility] Work Phone: Hematology/Oncology Comment on above: [...] 09-26-2024 Refill Dayami Puri MD Work Phone: [address] [place] [address] Comment on above: Refill Request Start: 09-16-2024 End: 09-16-2024 ambulatory Lab/Port [facility] Work Phone: Hematology/Oncology Comment on above: Cancer of cecum (HCC ) (Primary Dx); Colon cancer metastasized to lung (HCC); Metastatic colon cancer to liver (HCC) Start: 09-14-2024 End: 09-14-2024 Telephone encounter Amparo WEBB Hematology/Oncology Comment on above: Social Work Services Start: 09-14-2024 End: 09-14-2024 Patient encounter procedure Rhonda Owens Work Phone: Hematology/Oncology Start: 09-14-2024 End: 09-14-2024 ambulatory Lab/Port [facility] Work Phone: Hematology/Oncology Comment on above: [...] 09-12-2024 Refill Dayami Puri MD Work Phone: [address] [place] [address] Comment on above: Refill Request Start: 09-02-2024 End: 09-02-2024 ambulatory Lab/Port [facility] Work Phone: Hematology/Oncology Comment on above: Cancer of cecum (HCC ) (Primary Dx); Colon cancer metastasized to lung (HCC); Metastatic colon cancer to liver (HCC) Start: 08-31-2024 End: 08-31-2024 ambulatory Treatment Rm 5 [facility] Work Phone: Hematology/Oncology Comment on above: Metastatic colon can cer to liver (HCC) (Primary Dx); Cancer of cecum (HCC); Colon cancer metastasized to lung (HCC); Anemia due to vitamin B12 deficiency, unspecified B12 deficiency type; History of iron deficiency Start: 08-19-2024 End: 08-19-2024 ambulatory Lab/Port [facility] Work Phone: Hematology/Oncology Comment on above: Cancer of cecum (HCC ) (Primary Dx); Colon cancer metastasized to lung (HCC); Metastatic colon cancer to liver (HCC) Start: 08-17-2024 End: 08-17-2024 ambulatory Treatment Rm 9 [facility] Work Phone: Hematology/Oncology Comment on above: Metastatic [...] 08-10-2024 End: 08-10-2024 ambulatory Lab/Port [facility] Work Phone: Hematology/Oncology Comment on above: Cancer of cecum (HCC ) (Primary Dx); Colon cancer metastasized to lung (HCC); Metastatic colon cancer to liver (HCC); Anemia due to vitamin B12 deficiency, unspecified B12 deficiency type; History of iron deficiency Start: 08-10-2024 End: 08-10-2024 Subsequent hospital visit by physician [facility] (I-Stat) Work Phone: Cat Scan Comment on above: Cancer of cecum (HCC ) [C18.0] Start: 08-05-2024 End: 08-05-2024 ambulatory Lab/Port [facility] Roberto [facility] Work Phone: Hematology/Oncology Comment on above: Cancer of cecum (HCC ) (Primary Dx); Colon cancer metastasized to lung (HCC); Metastatic colon cancer to liver (HCC) Start: 08-03-2024 End: 08-03-2024 ambulatory Treatment Rm 5 [facility] Work Phone: Hematology/Oncology Comment on above: Metastatic colon can cer to liver (HCC) (Primary Dx); Cancer of cecum (HCC); Colon cancer metastasized to lung (HCC); Anemia due to vitamin B12 deficiency, unspecified B12 deficiency type; History of iron deficiency Start: 07-25-2024 End: 07-25-2024 ambulatory JANNET BRADY Facility:[facility] Start: 07-25-2024 End: 07-25-2024 Patient encounter procedure Jannet Brady OD Work Phone: Optometry Comment on above: Type 2 diabetes pipe itus without retinopathy (HCC) (Primary Dx); Combined form of age-related cataract, both eyes; Floaters, bilateral; Hyperopia, bilateral; Regular astigmatism, bilateral; Presbyopia Start: 07-22-2024 End: 07-22-2024 ambulatory [facility] Work Phone: Hematology/Oncology Comment on above: Cancer [...] 07-20-2024 End: 07-20-2024 ambulatory Treatment Rm 10 [facility] Work Phone: Hematology/Oncology Comment on above: Cancer of cecum (HCC ) (Primary Dx); Colon cancer metastasized to lung (HCC); Metastatic colon cancer to liver (HCC) Start: 07-11-2024 End: 07-11-2024 ambulatory DAYAMI PURI Facility:[facility] Start: 07-11-2024 End: 07-11-2024 Patient encounter procedure Dayami Puri MD Work Phone: [facility] Comment on above: Controlled type 2 di [...] 07-06-2024 ambulatory Treatment Rm 5 [facility] Work Phone: Hematology/Oncology Comment on above: Anemia due to vitami n B12 deficiency, unspecified B12 deficiency type (Primary Dx); Cancer of cecum (HCC); Colon cancer metastasized to lung (HCC); Metastatic colon cancer to liver (HCC); History of iron deficiency Start: 06-30-2024 End: 06-30-2024 Telephone encounter Silva Cash APRN.[employer] Work Phone: [facility] Comment on above: Results (Covid/Flu, RSV) Start: 06-28-2024 End: 06-28-2024 ambulatory SILVA CASH Facility:[facility] Start: 06-28-2024 End: 06-28-2024 Patient encounter procedure Silva Cash APRN.[employer] Work Phone: [facility] Comment on above: Lower respiratory in fection (e.g., bronchitis, pneumonia, pneumonitis, pulmonitis) (Primary Dx); Sore throat Start: 06-23-2024 End: 06-23-2024 ambulatory Lab/Port [facility] Work Phone: Hematology/Oncology Comment on above: Cancer of cecum (HCC ) (Primary Dx); Colon cancer metastasized to lung (HCC); Metastatic colon cancer to liver (HCC) Start: 06-21-2024 End: 06-21-2024 Patient encounter procedure John Mccray MD Work Phone: Hematology/Oncology Start: 06-21-2024 End: 06-21-2024 ambulatory Lab/Port [facility] Work Phone: Hematology/Oncology Comment on above: [...] Start: 06-14-2024 End: 06-14-2024 ambulatory Luisito Hassan APRN.[employer] Work Phone: Palliative Medicine Comment on above: Palliative care by s pecialist (Primary Dx); Metastatic colon cancer to liver (HCC); Colon cancer metastasized to lung (HCC) Start: 06-14-2024 End: 06-14-2024 Telemedicine consultation with patient Luisito Hassan APRN.[employer] Work Phone: Palliative Medicine Start: 06-10-2024 End: 06-10-2024 ambulatory Lab/Port [facility] Work Phone: Hematology/Oncology Comment on above: Cancer of cecum (HCC ) (Primary Dx); Colon cancer metastasized to lung (HCC); Metastatic colon cancer to liver (HCC) Start: 06-08-2024 End: 06-08-2024 ambulatory Treatment Rm 7 [facility] Work Phone: Hematology/Oncology Comment on above: Metastatic colon can cer to liver (HCC) (Primary Dx); Cancer of cecum (HCC); Colon cancer metastasized to lung (HCC); Anemia due to vitamin B12 deficiency, unspecified B12 deficiency type Start: 05-27-2024 End: 05-27-2024 ambulatory Lab/Port [facility] Work Phone: Hematology/Oncology Comment on above: Cancer of cecum (HCC ) (Primary Dx); Colon cancer metastasized to lung (HCC); Metastatic colon cancer to liver (HCC) Start: 05-25-2024 End: 05-25-2024 ambulatory Treatment Rm 5 [facility] Work Phone: Hematology/Oncology Comment on above: Cancer [...] diarrhea Start: 05-24-2024 End: 05-24-2024 ambulatory Lab/Port [facility] Work Phone: Hematology/Oncology Comment on above: Cancer of cecum (HCC ) (Primary Dx); Colon cancer metastasized to lung (HCC); Metastatic colon cancer to liver (HCC) Start: 05-13-2024 End: 05-13-2024 ambulatory Lab/Port [facility] Work Phone: Hematology/Oncology Comment on above: Cancer of cecum (HCC ) (Primary Dx); Colon cancer metastasized to lung (HCC); Metastatic colon cancer to liver (HCC) Start: 05-11-2024 End: 05-11-2024 ambulatory Treatment 7 [id number] Work Phone: Hematology/Oncology Comment on above: Metastatic colon can cer to liver (HCC) (Primary Dx); Cancer of cecum (HCC); Colon cancer metastasized to lung (HCC); Anemia due to vitamin B12 deficiency, unspecified B12 deficiency type Start: 04-29-2024 End: 04-29-2024 ambulatory Lab/Port [facility] Work Phone: Hematology/Oncology Comment on above: Cancer of cecum (HCC ) (Primary Dx); Colon cancer metastasized to lung (HCC); Metastatic colon cancer to liver (HCC) Start: 04-27-2024 End: 04-27-2024 ambulatory Treatment 7 [id number] Work Phone: Hematology/Oncology Comment on above: Cancer [...] deficiency Start: 04-26-2024 End: 04-26-2024 ambulatory Lab/Port [id number] Work Phone: Hematology/Oncology Comment on above: Cancer of cecum (HCC ); Colon cancer metastasized to lung (HCC); Metastatic colon cancer to liver (HCC) Start: 04-15-2024 End: 04-15-2024 ambulatory Lab/Port Jose Roberto Pending Sale To [facility] Work Phone: Hematology/Oncology Comment on above: Cancer of cecum (HCC ) (Primary Dx); Colon cancer metastasized to lung (HCC); Metastatic colon cancer to liver (HCC); Anemia due to vitamin B12 deficiency, unspecified B12 deficiency type Start: 04-13-2024 End: 04-13-2024 ambulatory Treatment Rm 9 Jose Roberto [facility]ending [facility] To [facility] Work Phone: Hematology/Oncology Comment on above: Cancer of cecum (HCC ) (Primary Dx); Colon cancer metastasized to lung (HCC); Metastatic colon cancer to liver (HCC) Start: 04-12-2024 End: 04-12-2024 Patient encounter procedure Aarti Bar DO Work Phone: Hematology/Oncology Start: 04-12-2024 End: 04-12-2024 ambulatory Lab/Port [facility] Work Phone: Hematology/Oncology Comment on above: [...] 04-08-2024 End: 04-08-2024 ambulatory Injection Jose Roberto [facility]ending [facility] To [facility] Work Phone: Hematology/Oncology Comment on above: Anemia due to vitami n B12 deficiency, unspecified B12 deficiency type (Primary Dx); Cancer of cecum (HCC); Colon cancer metastasized to lung (HCC) Start: 04-01-2024 End: 04-01-2024 ambulatory Lab/Port Jose Roberto [facility] To [facility] Work Phone: Hematology/Oncology Comment on above: Cancer of cecum (HCC ) (Primary Dx); Colon cancer metastasized to lung (HCC); Metastatic colon cancer to liver (HCC) Start: 03-30-2024 End: 03-30-2024 ambulatory Treatment Rm 7 Jose Roberto [facility] Work Phone: Hematology/Oncology Comment on above: Cancer of cecum (HCC ) (Primary Dx); Colon cancer metastasized to lung (HCC); Metastatic colon cancer to liver (HCC); Anemia due to vitamin B12 deficiency, unspecified B12 deficiency type Start: 03-29-2024 End: 03-29-2024 Patient encounter procedure Aarti Bar DO Work Phone: Hematology/Oncology Start: 03-29-2024 End: 03-29-2024 ambulatory Lab/Port [facility] Work Phone: Hematology/Oncology Comment on above: Cancer of cecum (HCC ); Colon cancer metastasized to lung (HCC); Metastatic colon cancer to liver (HCC) Cancer of cecum (HCC ) (Primary Dx); Metastatic colon cancer to liver (HCC); Colon cancer metastasized to lung (HCC); History of iron deficiency Start: 03-23-2024 End: 03-23-2024 ambulatory Injection Jose Roberto [facility] Work Phone: Hematology/Oncology Comment on above: Anemia due to vitami n B12 deficiency, unspecified B12 deficiency type (Primary Dx); Cancer of cecum (HCC); Colon cancer metastasized to lung (HCC) Start: 03-21-2024 End: 03-21-2024 ambulatory Lab/Port Jose Roberto [facility] Work Phone: Hematology/Oncology Comment on above: Cancer of cecum (HCC ) (Primary Dx) Start: 03-21-2024 End: 03-21-2024 Subsequent hospital visit by physician Ct Prep Pending Sale To [facility] Cat Scan Comment on above: Cancer [...] type Start: 03-15-2024 End: 03-15-2024 Telephone encounter Rhondasarah Lucasight Work Phone: Hematology/Oncology Comment on above: Results Start: 03-15-2024 End: 03-15-2024 Patient encounter procedure Rhonda Owens Work Phone: Hematology/Oncology Start: 03-15-2024 End: 03-15-2024 ambulatory Lab/Port [facility] Work Phone: Hematology/Oncology Comment on above: Cancer of cecum (HCC ) (Primary Dx); Colon cancer metastasized to lung (HCC); Metastatic colon cancer to liver (HCC); Iron deficiency anemia due to chronic blood loss Cancer of cecum (HCC ) (Primary Dx) Start: 03-08-2024 End: 03-08-2024 Telephone encounter Dayami Puri MD Work Phone: [employer] Comment on above: [id number]- pall med; Ini tial Consult Start: 03-08-2024 End: 03-08-2024 Patient encounter procedure Dayami Puri MD Work Phone: [facility] Comment on above: Encounter for medica l [...] encounter status Dayami Puri MD Work Phone: [facility] Work Phone: Start: 03-04-2024 End: 03-04-2024 ambulatory Lab/Port [facility] Work Phone: Hematology/Oncology Comment on above: Cancer of cecum (HCC ) (Primary Dx); Colon cancer metastasized to lung (HCC); Metastatic colon cancer to liver (HCC) Start: 03-02-2024 End: 03-02-2024 ambulatory Treatment Rm 5 [id number] Work Phone: Hematology/Oncology Comment on above: Cancer of cecum (HCC ) (Primary Dx); 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); Metastatic colon cancer to liver (HCC) Start: 03-01-2024 End: 03-01-2024 Patient encounter procedure Rhondasarah Owens Work Phone: Hematology/Oncology Start: 03-01-2024 End: 03-01-2024 ambulatory Lab/Port [id number] Work Phone: Hematology/Oncology Comment on above: Cancer of cecum (HCC ); 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); Metastatic colon cancer to liver (HCC) Cancer of cecum (HCC ) (Primary Dx); Colon cancer metastasized to lung (HCC); Malignant neoplasm of colon, unspecified part of colon (HCC) Start: 02-19-2024 End: 02-19-2024 ambulatory Lab/Port [id number] Work Phone: Hematology/Oncology Comment on above: Cancer of cecum (HCC ) (Primary Dx); 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); Metastatic colon cancer to liver (HCC) Start: 02-17-2024 End: 02-17-2024 ambulatory Treatment Rm 4 [id number] Work Phone: Hematology/Oncology Comment on above: Colon cancer metasta sized to lung (HCC) (Primary Dx); Cancer of cecum (HCC); Metastatic colon cancer to liver (HCC) Start: 02-16-2024 End: 02-16-2024 Patient encounter procedure Rhonda Owens Work Phone: Hematology/Oncology Start: 02-16-2024 End: 02-16-2024 ambulatory Lab/Port [id number] Work Phone: Hematology/Oncology Comment on above: Cancer [...] 02-02-2024 End: 02-02-2024 ambulatory Lab/Port [facility] Work Phone: Hematology/Oncology Comment on above: [...] liver (HCC); Acute cystitis without hematuria Start: 01-29-2024 Telephone encounter Aarti vincent DO Work Phone: Hematology/Oncology Comment on above: Patient Update [employer] (Symptoms ) Start: 01-22-2024 End: 01-22-2024 ambulatory Lab/Port Jose [facility] Work Phone: Hematology/Oncology Comment on above: Cancer of cecum (HCC ) (Primary Dx); 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); Metastatic colon cancer to liver (HCC) Start: 01-20-2024 End: 01-20-2024 ambulatory Treatment Rm 4 Jose Roberto [facility] Work Phone: Hematology/Oncology Comment on above: Cancer of cecum (HCC ) (Primary Dx); 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); Metastatic colon cancer to liver (HCC) Start: 01-19-2024 End: 01-19-2024 Patient encounter procedure Aarti Bar DO Work Phone: Hematology/Oncology Start: 01-19-2024 End: 01-19-2024 ambulatory Lab/Port Jose [facility] Work Phone: Hematology/Oncology Comment on above: Cancer of cecum (HCC ); 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); Metastatic colon cancer to liver (HCC) Cancer of cecum (HCC ) (Primary Dx); 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); Metastatic colon cancer to liver (HCC); Iron deficiency anemia due to chronic blood loss Start: 01-19-2024 Telephone encounter Aarit vincent DO Work Phone: Hematology/Oncology Comment on above: AVS 01/19/24 Start: 01-11-2024 Telephone encounter Jocelin Beach RN He matology/Oncology Comment on above: [employer] (C1D1 Post Treatment Call (Folfox+Avastin)) Start: 01-08-2024 End: 01-08-2024 ambulatory Lab/Port Jose Roberto [facility] Work Phone: Hematology/Oncology Comment on above: Cancer of cecum (HCC ) (Primary Dx); 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); Metastatic colon cancer to liver (HCC) Start: 01-06-2024 End: 01-06-2024 ambulatory Treatment Rm 7 [facility] Work Phone: Hematology/Oncology Comment on above: Cancer of cecum (HCC ) (Primary Dx); 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); Metastatic colon cancer to liver (HCC) Start: 01-01-2024 End: 01-01-2024 Assay of hemosiderin, quant Dayami Roe MD Work Phone: [facility] Work Phone: Start: 01-01-2024 End: 01-01-2024 Office outpatient visit 25 minutes Dayami Roe MD Work Phone: [facility] Comment on above: Type 2 diabetes pipe [...] site (Multi) Start: 01-01-2024 End: 01-01-2024 ambulatory DAYAMI ROE [facility] Ambulatory Start: 12-30-2023 End: 12-30-2023 ambulatory Treatment 13 [id number] Work Phone: Hematology/Oncology Comment on above: Iron malabsorption ( Primary Dx); Iron deficiency anemia due to chronic blood loss; Cancer of cecum (HCC); 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); Metastatic colon cancer to liver (HCC) Start: 12-29-2023 End: 12-29-2023 ambulatory [facility] Start: 12-25-2023 End: 12-25-2023 ambulatory Treatment 13 [id number] Work Phone: Hematology/Oncology Comment on above: Iron deficiency anem ia due to chronic blood loss (Primary Dx); Iron malabsorption; Cancer of cecum (HCC); 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); Metastatic colon cancer to liver (HCC) Start: 12-25-2023 Telephone encounter Amparo WEBB Hematology/Oncology Comment on above: Social Work Services Start: 12-25-2023 End: 12-25-2023 ambulatory [facility] Start: 12-23-2023 End: 12-23-2023 ambulatory Treatment 13 [facility] [employer] Work Phone: Hematology/Oncology Comment on above: Iron malabsorption ( Primary Dx); Iron deficiency anemia due to chronic blood loss; Cancer of cecum (HCC); 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); Metastatic colon cancer to liver (HCC) Start: 12-21-2023 End: 12-21-2023 ambulatory Treatment 13 [id number] Work Phone: Hematology/Oncology Comment on above: Iron malabsorption ( Primary Dx); Iron deficiency anemia due to chronic blood loss; Cancer of cecum (HCC); 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); Metastatic colon cancer to liver (HCC) Start: 12-18-2023 Telephone encounter Jackie moss RN Work Phone: Hematology/Oncology Comment on above: Care Coordination (R x needed) Start: 12-18-2023 End: 12-18-2023 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[facility] [employer] Work Phone: Hematology/Oncology Comment on above: Encounter for educat ion (Primary Dx); Metastatic colon cancer to liver (HCC) Start: 12-15-2023 End: 12-15-2023 ambulatory Lab/Port Jose Roberto [facility] Work Phone: Hematology/Oncology Comment on above: [...] AVS 12/15/23/CHEMO ST ART Start: 12-02-2023 ambulatory [place] [facility] Ambulatory Start: 11-30-2023 End: 11-30-2023 Office outpatient visit [facility] Work Phone: [facility] Comment on above: Adenocarcinoma of co danyell (HCC) (Primary Dx); Simple chronic bronchitis (HCC); Morbid obesity due to excess calories (HCC) Start: 11-30-2023 End: 11-30-2023 ambulatory [facility] Start: 11-25-2023 End: 11-25-2023 ambulatory [facility] Start: 11-19-2023 Telephone encounter Aarti vincent DO Work Phone: Hematology/Oncology Comment on above: New Patient Start: 11-13-2023 End: 11-13-2023 Office outpatient visit 25 minutes Dayami Roe MD Work Phone: [facility] Comment on above: 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 (Multi) (Primary Dx); Type 2 diabetes mellitus without complication, without long-term current use of insulin (Multi); Mixed hyperlipidemia; Gastroesophageal reflux disease without esophagitis; Hypertension, essential, benign; Anemia, unspecified type; Hypoxia; Obstructive sleep apnea syndrome Start: 11-13-2023 End: 11-13-2023 ambulatory [facility] Ambulatory Start: 11-11-2023 End: 11-11-2023 Encounter for other specified special examinations HAYDEN KUMARBogdan [facility] Start: 11-11-2023 End: 11-15-2023 ambulatory [facility] Start: 11-11-2023 End: 11-11-2023 Office outpatient new 60 minutes Hayden Balderas DO Work Phone: [facility] Comment on above: Adenocarcinoma of co danyell (HCC) (Primary Dx) Start: 11-11-2023 End: 11-11-2023 ambulatory HAYDEN LIZ [facility] Start: 11-09-2023 End: 11-09-2023 Postop follow up visit related to original px Austen Hall MD Work Phone: [facility] Comment on above: Cecal cancer (HCC) ( Primary Dx); 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) Start: 11-09-2023 End: 11-09-2023 ambulatory AUSTEN HALL [facility] Ambula tory Start: 10-28-2023 Orders Only Ros valladares RN [facility] Comment on above: Adenocarcinoma of co danyell (HCC) (Primary Dx) Start: 10-21-2023 End: 10-21-2023 Evaluation and management of inpatient Polo Pereira MD Work Phone: [facility] Periop Start: 10-19-2023 Critical care ill/injured patient init 30-74 min Garrick Caruso MD Work Phone: [facility] Start: 10-19-2023 End: 10-29-2023 Evaluation and management of inpatient Garrick Caruso MD Work Phone: [facility] Intermediate Start: 09-28-2023 End: 09-28-2023 Office outpatient visit 15 minutes Dayami Roe MD Work Phone: [facility] Comment on above: Hypertension, essent ial, benign Start: 09-28-2023 End: 09-28-2023 ambulatory [facility] Ambulatory Start: 09-26-2023 End: 09-26-2023 [facility] Start: 07-03-2023 End: 07-03-2023 Assay of hemosiderin, quant Dayami Roe MD Work Phone: [facility] Work Phone: Start: 07-03-2023 End: 07-03-2023 Patient encounter procedure Dayami Roe MD Work Phone: [facility] Comment on above: Routine general medi tanisha examination at health care facility (Primary Dx); Mixed hyperlipidemia; Hypertension, essential, benign; Type 2 diabetes mellitus without complication, without long-term current use of insulin ([facility]); Gastroesophageal reflux disease without esophagitis; Neurogenic claudication due to lumbar spinal stenosis; Arthritis of lumbosacral spine; Obstructive sleep apnea syndrome; Obesity, morbid ([facility]); Primary insomnia Start: 07-03-2023 End: 07-03-2023 ambulatory [facility] Start: 07-03-2023 End: 07-03-2023 Encounter for general adult medical examination without abnormal findings [facility] Ambulatory Start: 06-26-2023 End: 06-26-2023 ambulatory [facility] Start: 05-18-2023 End: 05-18-2023 Office outpatient visit 25 minutes David Argueta MD Work Phone: [facility] Comment on above: Dyspnea, unspecified type (Primary Dx); Coronary artery disease involving [place] coronary artery of [place] heart without angina pectoris; Fatigue, unspecified type Start: 05-18-2023 End: 05-18-2023 ambulatory DAVID ARGUETA [facility] Amb[facility] ry Start: 03-26-2023 End: 03-26-2023 Emergency department patient visit DAYAMI ROE [facility] Start: 12-31-2022 End: 12-31-2022 Office outpatient visit 25 minutes Dayami Roe MD Work Phone: [facility] Comment on above: Type 2 diabetes pipe itus without complication, without long- term current use of insulin ([facility]) (Primary Dx); Mixed hyperlipidemia; Hypertension, essential, benign; Gastroesophageal reflux disease without esophagitis; Neurogenic claudication due to lumbar spinal stenosis; Arthritis of lumbosacral spine; Obstructive sleep apnea syndrome; Prostate cancer screening; Primary insomnia; Obesity, morbid ([facility]) Start: 08-28-2022 AUDIT Dayami Roe Work Phone: [facility] Work Phone: Start: 08-05-2022 AUDIT Dayami Roe Work Phone: [facility] Work Phone: Start: 07-03-2022 Adv care pln tlkd & alt dcsn maker docd Dayami Roe Work Phone: [facility] Work Phone: Start: 07-03-[address] Chaitanya Roe Facility:[id number] Start: 06-27-2022 Chart Update Dayami Roe Work Phone: [facility] Work Phone: Start: 06-26-2022 Chart Update Dayami Roe Work Phone: [facility] Work Phone: Start: 05-29-2022 AUDIT Dayami Roe Work Phone: [facility] Work Phone: Start: 05-27-2022 End: 05-27-2022 Office outpatient visit 10 minutes Dipti Hoffman MD Work Phone: [facility] Comment on above: Dyspnea, unspecified type (Primary Dx); Coronary artery disease involving [place] coronary artery of [place] heart without angina pectoris Start: 04-27-2022 Chart Update Dayami Roe Work Phone: [facility] Work Phone: Start: 04-24-2022 Patient encounter procedure Dayami Roe Work Phone: [facility] Work Phone: Start: 04-24-2022 ambulatory Ms. AMBROSIO BAILEY Facility:[id number] Start: 04-22-[address] [id number] Start: 04-15-2022 AUDIT Dayami Roe Work Phone: [facility] Work Phone: Start: 04-14-2022 Patient encounter procedure Dayami Roe Work Phone: [facility] Work Phone: Start: 04-14-[address] [facility] Facility:[id number] Start: 04-01-2022 Office outpatient vi sit 15 minutes Dayami Roe Work Phone: [facility] Work Phone: Start: 04-01-[address] Chaitanya Roe Facility:[id number] Start: 03-27-2022 Chart Update Dayami Roe Work Phone: [facility] Work Phone: Start: 03-26-[address] CHAITANYA ROE Facility:[id number] Start: 03-25-2022 Office outpatient vi sit 15 minutes Dayami Roe Work Phone: [facility] Work Phone: Start: 03-25-[address] Chaitanya Roe Facility:[id number] Start: 03-17-2022 Chart Update Dayami Roe Work Phone: [facility] Work Phone: Start: 03-13-[address] CHAITANYA ROE Facility:[id number] Start: 03-07-2022 Chart Update Dayami Roe Work Phone: [facility] Work Phone: Start: 03-07-[address] CHAITANYA ROE Facility:[id number] Start: 03-04-2022 AUDIT Dayami Roe Work Phone: [facility] Work Phone: Start: 02-26-[address] CHAITANYA ROE Facility:[id number] Start: 02-21-2022 Office outpatient vi sit 15 minutes Dayami Roe Work Phone: [facility] Work Phone: Start: 02-21-[address] Chaitanya Roe Facility:[id number] Start: 02-10-2022 Admission to [facility] Dipti Hoffman MD Work Phone: [facility] Start: 01-28-2022 Orders Only Hayden Russell RN [facility] Start: 01-22-[address] Chaitanya Roe Facility:[id number] Start: 01-22-2022 Office outpatient vi sit 25 minutes Dayami Roe Work Phone: [facility] Work Phone: Start: 01-16-2022 Chart Update Dayami Roe Work Phone: [facility] Work Phone: Start: 01-15-2022 Chart Update Dayami Roe Work Phone: [facility] Work Phone: Start: 01-15-2022 Transcribe Orders Dameon Rai DO Work Phone: [facility] Comment on above: Shortness of breath (Primary Dx); Dyspnea, unspecified type Start: 08-08-2021 Office outpatient vi sit 15 minutes Dayami Roe Work Phone: [facility] Work Phone: Start: 07-25-2021 Patient encounter procedure Dayami Roe Work Phone: [facility] Work Phone: Start: 06-12-2021 Chart Update Dayami Linsey Roe Work Phone: [facility] Work Phone: Start: 05-02-2021 Telephone encounter Chaitanya david Stiles Bhupinder Work Phone: [facility] [place] [id number] Work Phone: Start: 12-26-2020 Patient encounter procedure Dayami Roe Work Phone: [facility] Work Phone: Start: 12-24-2020 Chart Update Dayami Roe Work Phone: [facility] Work Phone: Start: 08-04-2020 End: 08-04-2020 Orders Only Bhavna Reyes Work Phone: [facility] Start: 08-20-2017 End: 08-20-2017 Emergency department patient visit Bhavna Gallardo Facility:[place] Patient encounter procedure Dayami Linsey Kumard Work Phone: [facility] Work Phone: Procedures Date Procedure Procedure Detail Performing Clinician Start: 03-24-[address] Sarthak Puri MD Work Phone: Start: 03-24-2025 Plain chest X-ray Dr. Chaitanya Puri MD Work Phone: Start: 03-24-2025 CT angiography of chest with contrast Dr. Chaitanya Puri MD Work Phone: Start: 02-14-2025 Urnls dip stick/tablet rgnt auto w/o microscopy [facility] Provider Start: 02-14-2025 Blood count complete auto&auto difrntl wbc Aarti Bar DO Work Phone: Start: 01-17-2025 Blood count complete auto&auto difrntl wbc Aarti Bar DO Work Phone: Start: 01-10-[address] Chaitanya Puri MD Work Phone: Start: 01-10-2025 Urnls dip stick/tablet reagent auto microscopy Dr. Chaitanya Roe MD Work Phone: Start: 01-10-2025 Blood disorder - initial assessment Dr. Chaitanya Roe MD Work Phone: Start: 01-10-[address] Sarthak Roe MD Work Phone: Start: 01-10-2025 Red blood cell morphology Dr. Chaitanya Roe MD Work Phone: Start: 01-09-2025 Bacterial nucleic acid assay Dr. Juan Roe MD Work Phone: Start: 01-09-2025 Plain chest X-ray Dr. Chaitanya Puri MD Work Phone: Start: 01-09-[address] Sarthak Roe MD Work Phone: Start: 01-09-[address] Chaitanya Puri MD Work Phone: Start: 01-09-2025 Legionella pneumophila antigen assay Dr. Chaitanya Roe MD Work Phone: Start: 01-09-2025 Measurement of occult blood in stool specimen using immunoassay Dr. Chaitanya Roe MD Work Phone: Start: 01-09-2025 SARS-CoV-2, Influenza & RSV (PCR) Dr. Wiliam Roe MD Work Phone: Start: 01-09-2025 End: 01-09-[address] assay [address] Chaitanya Roe MD Work Phone: Start: 01-09-2025 Radiologic exam chest 2 views Chaitanya Puri MD Work Phone: Start: 12-15-2024 Blood count [...] Aarti Andres Masci DO Work Phone: Start: 10-26-2024 Urnls dip [...] 06-28-2024 STREP A MOLECULAR (POC) 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 Work Phone: Start: 06-21-2024 Blood count complete auto&auto difrntl wbc Aarti Andres Masci DO Work Phone: Start: 06-08-2024 Blood count complete auto&auto difrntl wbc aArti Andres Masci DO Work Phone: Start: 05-25-2024 [...] 01-06-2024 Blood count complete auto&auto difrntl wbc Chato Xiao [employer] 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 Work Phone: Start: 12-25-2023 Lipid 1996 panel [...] ROE Start: 11-13-2023 Cyanocobalamin vitamin b-12 DAYAMI ROE Start: 11-13-2023 Ferritin [Mass/volume] in Serum or Plasma DAYAMI ROE Start: 11-13-2023 IRON AND TIBC DAYAMI ROE Start: 11-13-2023 RETICULOCYTES DAYAMI ROE Start: 10-29-2023 Glucose measurement Generic [facility] [...] 10-26-2023 Radiologic exam abdomen 1 view Louisa Vaca M[employer]ER [employer] RUBBER Work Phone: Start: 10-26-2023 Glucose measurement Generic [...] 2023 Basic metabolic panel calcium total Venessa iNcolas MD Work Phone: Start: 10-24-2023 Glucose measurement [...] 10-22-2023 Blood count complete automated Sherron Browne M[employer]ER [employer]AM RUBBER Work Phone: Start: 10-21-2023 Blood count hematocrit Enriqueta العراقي MD Work Phone: Start: 10-21-2023 Natriuretic peptide Aixa Jennifer Vera M[employer]ER [employer] RU[employer]ER Work Phone: Start: 10-21-2023 Glucose measurement Generic [...] Work Phone: Start: 10-21-2023 AIRWAY ETT Niles GIBBS Work Phone: Start: 10-21-2023 End: 10-21-2023 INSERTION SUBCUTANEOUS PORT Austen Hall MD Work Phone: Start: 10-21-2023 End: 10-21-2023 Laps colectomy prtl w/rmvl terminal ileum Austen Hall MD Work Phone: Start: 10-21-2023 Glucose measurement Generic [facility] Work Phone: Start: 10-21-2023 Glucose measurement Generic [facility] Work Phone: Start: 10-21-2023 Echo tthrc r-t 2d w/wom-mode compl spec&colr d Enriqueta العراقي MD Work Phone: Start: 10-21-2023 Blood count hematocrit Enriqueta العرقاي MD Work Phone: Start: 10-20-2023 Blood count hematocrit Enriqueta العراقي MD Work Phone: Start: 10-20-2023 Glucose measurement Generic [facility] Work Phone: Start: 10-20-2023 Comprehensive metabolic panel Lencho Rodriguez MD Work Phone: Start: 10-20-2023 Glucose measurement Generic [facility] Work Phone: Start: 10-20-2023 Blood count hematocrit Enriqueta العراقي MD Work Phone: Start: 10-20-2023 Level iv surg pathology gross&microscopic exam Joe Rojas MD Work Phone: Start: 10-20-2023 End: 10-20-2023 Esophagogastroduodenoscopy Joe Rojas MD Work Phone: Start: 10-20-2023 Endoscopy of esophagus Joe Rojas MD Work Phone: Start: 10-20-2023 Glucose measurement Generic [facility] Work Phone: Start: 10-20-2023 Ct angiography chest w/contrast/noncontrast Venessa Nicolas MD Work Phone: Start: 10-20-2023 Glucose measurement Generic [facility] Work Phone: Start: 10-20-2023 Blood count [...] Work Phone: Start: 10-19-2023 Glucose measurement Generic [facility] Work Phone: Start: 10-19-2023 Urnls dip stick/tablet reagent auto microscopy Vero Morales CNP Work Phone: Start: 10-19-2023 Electrocardiogram Garrick Caruso MD Work Phone: Start: 10-19-2023 Blood count hematocrit Enriqueta العراقي MD Work Phone: Start: 10-19-2023 Glucose measurement Enriqueta العراقي MD Work Phone: Start: 10-19-2023 Assay of lactate Enriqueta العراقي MD Work Phone: Start: 5 End: 10-19-2023 Transfusion of red blood cells [...] Basic metabolic panel calcium total Vero Morales M[employer]ER FOAM RUBBER Work Phone: Start: 10-19-2023 Blood group typing Garrick Caruso MD Work Phone: Start: 10-19-2023 Influenza virus A and B RNA and SARS-CoV-2 (COVID-19) N gene panel - Respiratory specimen by ROYCE with probe detection Vero Morales [facility] Work Phone: Start: 10-19-2023 OBTAIN VENOUS BLOOD GASES AND PERFORM Garrick Caruso MD Work Phone: Start: 10-19-2023 Red blood cell morphology Vero Morales [facility] Work Phone: Start: 10-19-2023 Ecg routine ecg w/least 12 lds w/i&r Garrick Caruso MD Work Phone: Start: 07-03-2023 FOLLOW UP IN FAMILY MEDICINE DAYAMI ROE Start: 06-26-2023 CHOLESTEROL, LDL DIRECT DAYAMI ROE Start: 06-26-2023 Comprehensive metabolic 2000 panel - Serum or Plasma DAYAMI ROE Start: 06-26-2023 Hemoglobin A1c/Hemoglobin.total in Blood DAYAMI ROE Start: 06-26-2023 PROSTATE SPECIFIC ANTIGEN, SCREEN GETACHEW ROE Start: 06-26-2023 Lipid 1995 panel - Serum or Plasma Sarthak Roe MD Work Phone: Start: 06-28-2023 Lipid 1996 panel - Serum or Plasma Sarthak Roe MD Work Phone: Start: 02-07-2022 Cardiac catheterization Dayami murphy Work Phone: Comment on above: [facility], less than 70% stenosis, no stent; Start: [...] AND EJACULATION WITHIN 48 HRS. UROLOGIC CLINICS [facility] VOL24,NO.2, , PG.339 Performed By: #### 1 [id number] #### [facility] [address] [place] [address] Start: 07-16-2018 Colonoscopy Dameon Barraganbeverly DIMAOND Work Phone: Start: 07-16-2018 Colonoscopy Dayami Roe [...] 10-19-2033 Screening for malignant neoplasm of colon [facility] Start: 08-05-2031 DTaP/Tdap/Td Vaccines (2 - Td or Tdap) DTaP/Tdap/Td Vaccines (2 - Td or Tdap) [facility] Start: 08-05-2031 Tetanus vaccination Tetanus: Every 10yrs [facility] Start: 08-05-2031 Urine microalbumin profile DTaP,Tdap,Td Vaccine (2 - Td or Tdap) [facility] Start: 03-01-2030 Screening for malignant neoplasm of colon [facility] Start: 07-16-2028 Screening for malignant neoplasm of colon [facility] Start: 07-06-2027 Diabetes Screening Diabetes Screening [facility] Start: 06-21-2027 Diabetes Screening Diabetes Screening [facility] Start: 06-08-2027 Diabetes Screening Diabetes Screening [facility] Start: 05-24-2027 Diabetes Screening Diabetes Screening [facility] Start: 05-11-2027 Diabetes Screening Diabetes Screening [facility] Start: 04-26-2027 Diabetes Screening Diabetes Screening [facility] Start: 04-12-2027 Diabetes Screening Diabetes Screening [facility] Start: 03-29-2027 Diabetes Screening Diabetes Screening [facility] Start: 03-15-2027 Diabetes Screening Diabetes Screening [facility] Start: 03-01-2027 Diabetes Screening Diabetes Screening [facility] Start: 02-15-2027 Diabetes Screening Diabetes Screening [facility] Start: 02-01-2027 Diabetes Screening Diabetes Screening [facility] Start: 01-18-2027 Diabetes Screening Diabetes Screening [facility] Start: 01-05-2027 Diabetes Screening Diabetes Screening [facility] Start: 12-24-2026 Diabetes Screening Diabetes Screening [facility] Start: 12-14-2026 Diabetes Screening Diabetes Screening [facility] Start: 11-10-2026 Diabetes Screening Diabetes Screening [facility] Start: 01-16-2026 Annual PCP Team Chronic Disease Visit Annual PCP Team Chronic Disease Visit [facility] Start: 01-09-2026 Annual PCP Team Chronic Disease Visit Annual PCP Team Chronic Disease Visit [facility] Start: 01-06-2026 Hepatitis B screening Urine Albumin:Creatinine Ratio [facility] Start: 01-06-2026 Hepatitis B surface antibody level LDL Cholesterol [facility] Start: 11-09-2025 BP Controlled (<130/80) BP Controlled (<130/80) [facility] Start: 07-25-2025 Glaucoma screening Dilated Retinal Exam [facility] Start: 07-17-2025 End: 07-17-2025 Patient encounter procedure 07/17/2025 9:00 AM EST Office Visit [facility] [address] [place] [address] Dayami Puri MD [address] [place] [address] 6 month follow up [facility] [place] Comment on above: 6 month follow up Start: 07-11-2025 Annual PCP Team Chronic Disease Visit Annual PCP Team Chronic Disease Visit [facility] Start: 07-11-2025 BP Controlled (<130/80) BP Controlled (<130/80) [facility] Start: 07-09-2025 Hemoglobin A1c measurement HbA1C [facility] Start: 06-28-2025 Annual PCP Team Chronic Disease Visit Annual PCP Team Chronic Disease Visit [facility] Start: 06-28-2025 BP Controlled (<130/80) BP Controlled (<130/80) [facility] Start: 06-21-2025 BP Controlled (<130/80) BP Controlled (<130/80) [facility] Start: 03-24-2025 Hospital admission, emergency, from emergency room, medical nature [facility] Start: 03-24-2025 Administration of blood product [facility] Start: 03-24-2025 [facility] Start: 03-08-2025 Annual PCP Team Chronic Disease Visit Annual PCP Team Chronic Disease Visit [facility] Start: 03-08-2025 BP Controlled (<130/80) BP Controlled (<130/80) [facility] Start: 03-08-2025 Covid-19 Vaccine () Covid-19 Vaccine () [facility] Comment on above: Postponed from 02/28/2024 (Declined at t his time) Start: 03-08-2025 Covid-19 Vaccine ( season) Covid-19 Vaccine () [facility] Comment on above: Postponed from 02/28/2024 (Declined at t his time) Start: 03-08-2025 RSV Vaccine (1 - 1-dose 60+ series) RSV Vaccine (1 - 1-dose 60+ series) [facility] Comment on above: Postponed from 2007 (Declined at t his time) Start: 03-08-2025 RSV Vaccine (1 - 1-dose 75+ series) RSV Vaccine (1 - 1-dose 75+ series) [facility] Comment on above: Postponed from 10/24/2022 (Declined at t his time) Start: 03-08-2025 Shingrix Vaccine (1 of 2) Shingrix Vaccine (1 of 2) [facility] Comment on above: Postponed from 10/24/1966 (Declined at t his time) Start: 02-27-2025 Influenza [facility] Start: 02-16-2025 End: 02-16-2025 ambulatory 02/16/2025 4:00 PM EDT Infusion Center Hematology/Oncology [address] [place] [id number] Wstr, Lab/Port [place] [facility] Pending Sale To [facility] [address] [place] [id number] D/C CADD* Hematology/Oncology Comment on above: D/C CADD* Start: 02-14-2025 End: 02-14-2025 ambulatory Hematology/Oncology Comment on above: (SO)CBC/CMP(S)/MG(S)/CEA/QMO URINE(PORT) /OV & CHEMO TODAY* OV(PORT)LAB EARLY/CH EMO TODAY* MASCI - OV EVERY OTHER TREATMENT Q2WK FOLFIRI/AVASTIN /(PORT)LAB&OV EARLY* EARLY APPTS (SO)CBC/CMP(S)/MG(S) /CEA/QMO URINE(PORT)/OV TODAY* OV(PORT)LAB EARLY* OV(PORT)LAB EARLY/CT 02/07* Start: 02-07-2025 End: 02-07-2025 Patient encounter procedure Cat Scan Comment on above: Dx: Metastatic colon cancer to liver (HC C) [C18.9, C78.7]; Cancer of cecum (HCC) [C18.0] Start: 02-07-2025 End: 02-07-2025 ambulatory 02/07/2025 8:45 AM EDT Infusion Center Hematology/Oncology [address] [place] [id number] Wstr, Lab/Port [place] [facility] Pending Sale To [facility] [address] [place] [address] PORT ACCESS FOR IMAGING* Hematology/Oncology Comment on above: PORT ACCESS FOR IMAGING* Start: 02-02-2025 End: 02-02-2025 ambulatory 02/02/2025 4:00 PM EDT Infusion Center Hematology/Oncology [address] [place] [address] Wstr, Lab/Port [place] [facility] Pending Sale To [facility] [address] [place] [address] D/C CADD* Hematology/Oncology Comment on above: D/C CADD* Start: 01-31-2025 End: 01-31-2025 ambulatory 01/31/2025 9:00 AM EDT Infusion Center Hematology/Oncology [address] [place] [address] (SO)CBC/CMP(S)/MG(S)/CEA /Q2WK FOLFIRI/AVASTIN/QMO B12(PORT)* EARLY APPTS Hematology/Oncology Comment on above: (SO)CBC/CMP(S)/MG(S)/CEA/Q2WK FOLFIRI/AV ASTIN/QMO B12(PORT)* EARLY APPTS Start: 01-20-2025 End: 01-20-2025 ambulatory 01/20/2025 4:00 PM EDT Infusion Center Hematology/Oncology [address] [place] [address] Wstr, Lab/Port [place] [facility] Pending Sale To [facility] [address] [place] [address] D/C CADD* Hematology/Oncology Comment on above: D/C CADD* Start: 01-19-2025 End: 01-19-2025 ambulatory 01/19/2025 4:00 PM EDT Infusion Center Hematology/Oncology [address] [place] [address] Wstr, Lab/Port [place] Roberto c [address] [place] [address] D/C CADD* Hematology/Oncology Comment on above: D/C CADD* Start: 01-18-2025 End: 01-18-2025 ambulatory Hematology/Oncology Comment on above: (SO)CBC/CMP(S)/MG(S)/CEA/Q2WK FOLFOX/SATINDER STIN/QMO B12(PORT)* EARLY APPTS (SO)CBC/CMP(S)/MG(S) /CEA/Q2WK FOLFIRI/AVASTIN/QMO B12(PORT)* EARLY APPTS Start: 01-17-2025 End: 04-18-2025 Carcinoembryonic Ag [Mass/volume] in Serum or Plasma [facility] Work Phone: Comment on above: Expected: 01/17/2025, Expires: Start: 01-17-2025 Hemoglobin A1c measurement HbA1C [facility] Start: 01-17-2025 End: 01-17-2025 ambulatory 01/17/2025 9:50 AM EDT Visit (SP) Office Hematology/Oncology [address] [place] [address] Aarti Bar DO [address] [place] [address] OV-POSS ALT CHEMO TREATMENT* Hematology/Oncology Comment on above: OV-POSS ALT CHEMO TREATMENT* Start: 01-17-2025 End: 01-17-2025 ambulatory Hematology/Oncology Comment on above: (SO)CBC/CMP(S)/MG(S)/CEA/QMO URINE(PORT) /OV & CHEMO TODAY* OV(PORT)LAB EARLY/CH EMO TODAY* MASCI - OV EVERY OTHER TREATMENT Q2WK FOLFIRI/AVASTIN /(PORT)LAB&OV EARLY* EARLY APPTS Start: 01-16-2025 End: 01-16-2025 Patient encounter procedure 01/16/2025 9:00 AM EDT Office Visit [facility] [address] [place], [place] [id number] [employer] vila APRN.MIXER FOAM RUBBER [address] [place] [address] 1 week follow up. Pneumonia [facility] [place] Comment on above: 1 week follow up. Pneumonia Start: 01-13-2025 End: 01-13-2025 ambulatory 01/13/2025 4:00 PM EDT Infusion Center Hematology/Oncology [address] [place] [address] Wstr, Lab/Port [place] [facility] Pending Sale To [facility] [address] [place] [address] D/C CADD* Hematology/Oncology Comment on above: D/C CADD* Start: 01-11-2025 End: 01-11-2025 ambulatory Hematology/Oncology Comment on above: (SO)CBC/CMP(S)/MG(S)/CEA/QMO URINE(PORT) /OV & CHEMO TODAY* OV(PORT)LAB EARLY/CH EMO TODAY* MASCI - OV EVERY OTHER TREATMENT Q2WK FOLFIRI/AVASTIN /(PORT)LAB&OV EARLY* EARLY APPTS Start: 01-10-2025 Bacteria identified in Urine by Culture Urine Culture [facility] Start: 01-10-[address] [facility] Start: 01-10-2025 Administration of blood product [facility] Start: 01-10-2025 Leukocyte reduced red blood cells [facility] Start: 01-09-2025 Application of intermittent pneumatic compression device [facility] Start: 01-09-2025 Following clinical pathway protocol [facility] Start: 01-09-2025 Venous catheter care management [facility] Start: 01-09-2025 Assessment of risk of venous thromboembolism [facility] Start: 01-09-[address] [facility] Start: 01-09-2025 Insertion of catheter into peripheral vein [facility] Start: 01-09-2025 Measuring intake and output [facility] Start: 01-09-[address] [facility] Start: 01-09-2025 Providing care according to standard [facility] Start: 01-09-2025 Vital signs measurements [facility] Start: 01-09-2025 Bacteria identified in Sputum by Culture [facility] Start: 01-09-2025 B[address] nucleic acid assay [facility] Start: 01-09-2025 Catheterization of vein [facility] Start: 01-09-[address] [facility] Start: 01-09-2025 Legionella pneumophila Ag [Presence] in Urine [facility] Start: 01-09-2025 Streptococcus pneumoniae antigen assay [facility] Start: 01-09-2025 End: 01-09-2025 [facility] Start: 01-09-2025 Hospital admission, emergency, from emergency room, medical nature [facility] Start: 01-09-[address] [facility] Start: 01-09-2025 Administration of blood product [facility] Start: 01-09-2025 Leukocyte reduced red blood cells [facility] Start: 01-09-2025 [facility] Start: 01-09-2025 Plain chest X-ray Chest 1 View (Portable) [facility] Start: 01-09-2025 XR Chest Single view [facility] Start: 01-09-2025 End: 01-09-2025 [facility] Start: 01-09-2025 Bacteria identified in Blood by Culture Blood Culture [facility] Start: 01-09-2025 End: 01-09-2025 Patient encounter procedure [facility] [place] Comment on above: 6 month follow up 6 month follow up--Rayray delg[facility] ER follow up on 12/21/2023 nausea, vomiting, shortness of breath Start: 01-09-2025 Patient referral to dietitian [facility] Start: 01-06-2025 End: 01-06-2025 ambulatory Hematology/Oncology Comment on above: D/C CADD* lab Start: 01-05-2025 End: 01-05-2025 ambulatory 01/05/2025 4:00 PM EDT Infusion Center Hematology/Oncology [address] [place] [address] Wstr, Lab/Port [place] [facility] Pending Sale To [facility] [address] [place] [address] D/C CADD* Hematology/Oncology Comment on above: D/C CADD* Start: 01-04-2025 End: 01-04-2025 ambulatory Hematology/Oncology Comment on above: (SO)CBC/CMP(S)/MG(S)/CEA/QMO URINE(PORT) /OV & CHEMO TODAY* OV(PORT)LAB EARLY/CH EMO TODAY* MASCI- OV EVERY OTHER [place] Q2WK FOLFOX/AVASTIN/ (PORT)LAB&OV EARLY* EARLY APPTS Q2WK FOLFIRI/AVASTIN /(PORT)LAB&OV EARLY* EARLY APPTS STRAIGHTBACK (SO)CBC /CMP(S)/MG(S)/CEA/QMO URINE(PORT)Q2WK FOLFIRI/AVASTIN* EARLY APPTS Start: 01-03-2025 End: 01-03-2025 ambulatory 01/03/2025 10:00 AM [facility] Hematology/Oncology [address] [place] [address] (SO)CBC/CMP(S)/MG(S)/CEA /Q2WK FOLFIRI/AVASTIN/QMO B12(PORT)* EARLY APPTS Hematology/Oncology Comment on above: (SO)CBC/CMP(S)/MG(S)/CEA/Q2WK FOLFIRI/AV ASTIN/QMO B12(PORT)* EARLY APPTS Start: 01-02-2025 End: 04-03-2025 Hemoglobin A1c in Blood HEMOGLOBIN A1C Lab Routine Controlled type 2 diabetes mellitus without complication, with long-term current use of insulin (HCC) Expected: 01/02/2025, Expires: 04/03/2025 [facility] Work Phone: Comment on above: Expected: 01/02/2025, Expires: Start: 01-02-2025 End: 04-03-2025 LIPID PANEL, NONFASTING LIPID PANEL, NONFASTING Lab Routine Controlled type 2 diabetes mellitus without complication, with long-term current use of insulin (HCC) Expected: 01/02/2025, Expires: 04/03/2025 [facility] Comment on above: Expected: 01/02/2025, Expires: Start: 01-02-2025 End: 04-03-2025 Microalbumin/Creatinine [Mass Ratio] in Urine ALBUMIN/CREATININE RATIO, URINE Lab Routine Controlled type 2 diabetes mellitus without complication, with long-term current use of insulin (HCC) Expected: 01/02/2025, Expires: 04/03/2025 [facility] Comment on above: Expected: 01/02/2025, Expires: Start: 12-29-2024 End: 12-29-2024 ambulatory 12/29/2024 4:00 PM EDT Infusion Center Hematology/Oncology [address] [place] [address] Wstr, Lab/Port [place] [facility] Pending Sale To [facility] [address] [place] [address] D/C CADD* Hematology/Oncology Comment on above: D/C CADD* Start: 12-28-2024 Hepatitis B screening Urine Albumin:Creatinine Ratio [facility] Start: 12-28-2024 Urine screening for protein Diabetes: Urine Protein Screening [facility] Start: 12-27-2024 End: 12-27-2024 ambulatory 12/27/2024 8:00 AM EDT Infusion Center Hematology/Oncology [address] [place] [address] (SO)CBC/CMP(S)/MG(S)/CEA /Q2WK FOLFIRI/AVASTIN/QMO B12(PORT)* EARLY APPTS Hematology/Oncology Comment on above: (SO)CBC/CMP(S)/MG(S)/CEA/Q2WK FOLFIRI/AV ASTIN/QMO B12(PORT)* EARLY APPTS Start: 12-24-2024 Hepatitis B surface antibody level LDL Cholesterol [facility] Start: 12-24-2024 Lipid panel Lipid Panel [facility] Start: 12-23-2024 End: 12-23-2024 ambulatory 12/23/2024 4:00 PM EDT Infusion Center Hematology/Oncology [address] [place] [address] Wstr, Lab/Port [place] [facility] Pending Sale To [facility] [address] [place] [address] D/C CADD* Hematology/Oncology Comment on above: D/C CADD* Start: 12-22-2024 End: 12-22-2024 ambulatory 12/22/2024 4:00 PM EDT Infusion Center Hematology/Oncology [address] [place] [address] Wstr, Lab/Port [place] [facility] Pending Sale To [facility] [address] [place] [address] D/C CADD* Hematology/Oncology Comment on above: D/C [...] 12-15-2024 End: 12-15-2024 ambulatory 12/15/2024 4:00 PM [facility] Infusion Center Hematology/Oncology [address] [place] [address] Wstr, Lab/Port [place] [facility] Pending Sale To [facility] [address] [place] [address] D/C CADD* Hematology/Oncology Comment on above: D/C CADD* Start: 12-15-2024 End: 03-16-2025 Basic metabolic 2000 panel - Serum or Plasma BASIC METABOLIC PANEL Lab Routine Cancer of cecum (HCC) Metastatic colon cancer to liver (HCC) Expected: 12/15/2024, Expires: 03/16/2025 [facility] Comment on above: Expected: 12/15/2024, Expires: Start: 12-15-2024 End: 03-16-2025 CBC W Auto Differential panel - Blood COMPLETE BLOOD COUNT AND DIFFERENTIAL Lab STAT Cancer of cecum (HCC) Metastatic colon cancer to liver (HCC) History of iron deficiency Expected: 12/15/2024, Expires: 03/16/2025 [facility] Work Phone: Comment on above: Expected: 12/15/2024, Expires: Start: 12-13-2024 End: 12-13-2024 ambulatory 12/13/2024 10:30 AM EDT Infusion Center Hematology/Oncology [address] [place] [address] Q2WK FOLFIRI/AVASTIN/(PORT)LA B&OV EARLY* EARLY APPTS Hematology/Oncology Comment on above: Q2WK FOLFIRI/AVASTIN/(PORT)LAB&OV EARLY* EARLY APPTS Start: 12-13-2024 End: 12-13-2024 ambulatory Hematology/Oncology Comment on above: (SO)CBC/CMP(S)/MG(S)/CEA/QMO URINE(PORT) /OV & CHEMO TODAY* OV(PORT)LAB EARLY/CH EMO TODAY* MASCI - OV EVERY OTHER TREATMENT Start: 12-09-2024 End: 12-09-2024 ambulatory 12/09/2024 4:00 PM EDT Infusion Center Hematology/Oncology [address] [place] [address] Wstr, Lab/Port [place] [facility] Pending Sale To [facility] [address] [place] [address] D/C CADD* Hematology/Oncology Comment on above: D/C [...] EDT Infusion Center Hematology/Oncology [address] [place] [address] delayed from 11/23 (SO)CBC/CMP(S)/MG(S)/CEA /Q2WK FOLFIRI/AVASTIN/QMO B12(PORT)/AUTH EXP 11/01/24* EARLY APPTS Hematology/Oncology Comment on above: delayed from 11/23 (SO)CBC/CMP(S)/MG(S)/C EA/Q2WK FOLFIRI/AVASTIN/QMO B12(PORT)/AUTH EXP 11/01/24* EARLY APPTS Start: 12-02-2024 End: 12-02-2024 ambulatory 12/02/2024 4:00 PM EDT Infusion Center Hematology/Oncology [address] [place] [address] Wstr, Lab/Port [place] [facility] Pending Sale To [facility] [address] [place] [address] D/C CADD* Hematology/Oncology Comment on above: D/C CADD* Start: 11-30-2024 End: 11-30-2024 ambulatory 11/30/2024 10:00 AM EDT Infusion Center Hematology/Oncology [address] [place] [address] delayed from 11/23 (SO)CBC/CMP(S)/MG(S)/CEA /Q2WK FOLFIRI/AVASTIN/QMO B12(PORT)/AUTH EXP 11/01/24* EARLY APPTS Hematology/Oncology Comment on above: delayed from 11/23 (SO)CBC/CMP(S)/MG(S)/C EA/Q2WK FOLFIRI/AVASTIN/QMO B12(PORT)/AUTH EXP 11/01/24* EARLY APPTS Start: 11-25-2024 End: 11-25-2024 ambulatory 11/25/2024 4:00 PM EDT Infusion Center Hematology/Oncology [address] [place] [address] Wstr, Lab/Port [facility] [facility] [address] [place] [address] D/C CADD* Hematology/Oncology Comment on above: D/C CADD* Start: 11-24-[address] [facility] Start: 11-24-2024 [facility] Start: 11-23-2024 End: 11-23-2024 ambulatory Hematology/Oncology Comment on above: (SO)CBC/CMP(S)/MG(S)/CEA/Q2WK FOLFOX/SATINDER STIN/QMO B12(PORT)/AUTH EXP ?* (SO)CBC/CMP(S)/MG(S) /CEA/Q2WK FOLFOX/AVASTIN/QMO B12(PORT)/AUTH EXP 11/01/24* EARLY APPTS (SO)CBC/CMP(S)/MG(S) /CEA/Q2WK FOLFIRI/AVASTIN/QMO B12(PORT)/AUTH EXP 11/01/24* EARLY APPTS Start: 11-11-2024 End: 11-11-2024 ambulatory 11/11/2024 4:00 PM EDT Infusion Center Hematology/Oncology [address] [place] [address] Wstr, Lab/Port [place] [facility] Pending Sale To [facility] [address] [place] [address] D/C CADD* Hematology/Oncology Comment on above: D/C CADD* Start: 11-09-2024 End: 02-08-[id number] [place] [address] Work Phone: Comment on above: Expected: 11/09/2024, [...] EDT Infusion Center Hematology/Oncology [address] [place] [address] Wstr, Lab/Port [place] [facility] Pending Sale To [facility] [address] [place] [address] D/C CADD* Hematology/Oncology Comment on above: D/C CADD* Start: 10-26-2024 End: 10-26-2024 ambulatory Hematology/Oncology Comment on above: (SO)CBC/CMP(S)/MG(S)/CEA/Q2WK FOLFOX/SATINDER STIN/QMO B12(PORT)/AUTH EXP ?* (SO)CBC/CMP(S)/MG(S) /CEA/Q2WK FOLFOX/AVASTIN/QMO B12(PORT)/AUTH EXP 11/01/24* Start: 10-14-2024 End: 10-14-2024 ambulatory 10/14/2024 4:00 PM EDT Infusion Center Hematology/Oncology [address] [place] [address] Wstr, Lab/Port [place] [facility] Pending Sale To [facility] [address] [place] [address] D/C CADD* Hematology/Oncology Comment on above: D/C CADD* Start: 10-12-2024 End: 10-12-2024 ambulatory Hematology/Oncology Comment on above: (SO)CBC/CMP(S)/MG(S)/CEA/QMO URINE(PORT) /OV & CHEMO TODAY* OV(PORT)LAB EARLY/CH EMO TODAY* masci every other treatment Q2WK FOLFOX/AVASTIN/ (PORT)LAB&OV EARLY/AUTH EXP ?* Q2WK FOLFOX/AVASTIN/ (PORT)LAB&OV EARLY/AUTH EXP 11/01/24* Start: 10-11-2024 Hemoglobin A1c measurement HbA1C [facility] Start: 09-30-2024 End: 09-30-2024 ambulatory 09/30/2024 4:00 PM EDT Infusion Center Hematology/Oncology [address] [place] [address] Wstr, Lab/Port [place] [facility] Pending Sale To [facility] [address] [place] [address] D/C CADD* Hematology/Oncology Comment on above: D/C CADD* Start: 09-28-2024 End: 09-28-2024 ambulatory Hematology/Oncology Comment on above: (SO)CBC/CMP(S)/MG(S)/CEA/Q2WK FOLFOX/SATINDER STIN/QMO B12(PORT)/AUTH EXP ?* (SO)CBC/CMP(S)/MG(S) /CEA/Q2WK FOLFOX/AVASTIN/QMO B12(PORT)/AUTH EXP 11/01/24* Start: 09-16-2024 End: 09-16-2024 ambulatory 09/16/2024 4:00 PM EDT Infusion Center Hematology/Oncology [address] [place] [address] Wstr, Lab/Port [place] Pending [facility] To [facility] [address] [place] [address] D/C CADD* Hematology/Oncology Comment on above: D/C CADD* Start: 09-14-2024 End: 09-14-2024 ambulatory Hematology/Oncology Comment on above: (SO)CBC/CMP(S)/MG(S)/CEA(PORT)/OV & CHEM O TODAY* OV(PORT)LAB EARLY/CH EMO TODAY* masci every other treatment Q2WK FOLFOX/AVASTIN/ (PORT)LAB&OV EARLY/AUTH EXP 09/27/24* (SO)CBC/CMP(S)/MG(S) /CEA/QMO URINE(PORT)/OV & CHEMO TODAY* Start: 09-02-2024 End: 09-02-2024 ambulatory 09/02/2024 4:00 PM EST Infusion Center Hematology/Oncology [address] [place] [address] Wstr, Lab/Port [place] [facility] Pending Sale To [facility] [address] [place] [address] D/C CADD* Hematology/Oncology Comment on above: D/C CADD* Start: 08-31-2024 End: 08-31-2024 ambulatory 08/31/2024 9:00 AM EST Infusion Center Hematology/Oncology [address] [place] [address] (SO)CBC/CMP(S)/MG(S)/CEA /Q2WK FOLFOX/AVASTIN/QMO B12(PORT)/AUTH EXP 09/27/24* Hematology/Oncology Comment on above: (SO)CBC/CMP(S)/MG(S)/CEA/Q2WK FOLFOX/SATINDER STIN/QMO B12(PORT)/AUTH EXP 09/27/24* Start: 08-19-2024 End: 08-19-2024 ambulatory 08/19/2024 4:00 PM EST Infusion Center Hematology/Oncology [address] [place] [address] Wstr, Lab/Port [place] [facility] Pending Sale To [facility] [address] [place] [address] D/C CADD* Hematology/Oncology Comment on above: D/C CADD* Start: 08-17-2024 End: 08-17-2024 ambulatory Hematology/Oncology Comment on above: (SO)CBC/CMP(S)/MG(S)/CEA(PORT)/OV & CHEM O TODAY* OV(PORT)LAB EARLY/CH EMO TODAY* masci every other treatment Q2WK FOLFOX/AVASTIN/ (PORT)LAB&OV EARLY/AUTH EXP 09/27/24* OV(PORT)LAB&CT 08/10/ CHEMO TODAY* masci every other treatment Start: 08-10-2024 End: 08-10-2024 ambulatory 08/10/2024 1:30 PM EST Infusion Center Hematology/Oncology [address] [place] [address] Wstr, Lab/Port [place] c [address] [place] [address] (SO)CBC/CMP(S)/MG(S)/CEA /QMO URINE(PORT)/OV & CHEMO TODAY* Hematology/Oncology Comment on above: (SO)CBC/CMP(S)/MG(S)/CEA/QMO URINE(PORT) /OV & CHEMO TODAY* Start: 08-10-2024 End: 08-10-2024 Patient encounter procedure Cat Scan Comment on above: Cancer of cecum (HCC) [C18.0] Start: 08-05-2024 End: 08-05-2024 ambulatory 08/05/2024 4:00 PM EST Infusion Center Hematology/Oncology [address] [place] [address] Wstr, Lab/Port [place] [facility] Pending Sale To [facility] [address] [place] [address] D/C CADD* Hematology/Oncology Comment on above: D/C CADD* Start: 08-03-2024 End: 08-03-2024 ambulatory Hematology/Oncology Comment on above: (SO)CBC/CMP(S)/MG(S)/CEA/Q2WK FOLFOX/SATINDER STIN/QMO B12(PORT)/AUTH EXP ?* (SO)CBC/CMP(S)/MG(S) /CEA/Q2WK FOLFOX/AVASTIN/QMO B12(PORT)/AUTH EXP 09/27/24* Start: 07-25-2024 End: 07-25-2024 Patient encounter procedure 07/25/2024 2:00 PM EST Office Visit [facility] [address] [place] [address] Jannet Brady, OD [address] [place] [address] Eye exam MMO Medicare/[facility] Comment on [...] of insulin (HCC) Expected: 07/11/2024, Expires: 10/10/2024 [facility] Work Phone: Comment on above: Expected: 07/11/2024, Expires: Start: 07-11-2024 End: 07-11-2024 Patient encounter procedure 07/11/2024 8:40 AM EST Office Visit [facility] [place] [address] [place] [address] Dayami Puri MD [address] [place] [id number] 4 month follow up [facility] [place] Comment on above: 4 month follow up Start: 07-08-2024 End: 07-08-2024 ambulatory 07/08/2024 4:00 PM EST Infusion Center Hematology/Oncology [address] [place] [id number] Wstr, Lab/Port [place] [facility] Pending Sale To [facility] [address] [place] [id number] D/C CADD* Hematology/Oncology Comment on above: D/C CADD* Start: 07-06-2024 End: 07-06-2024 ambulatory Hematology/Oncology Comment on above: Q2WK FOLFOX/AVASTIN/QMO B12(PORT)LAB&OV UTH EXP ?* (SO)CBC/CMP(S)/MG(S) /CEA/Q2WK FOLFOX/AVASTIN/QMO B12(PORT)/AUTH EXP ?* Start: 07-05-2024 End: 07-05-2024 ambulatory Hematology/Oncology Comment on above: (SO)CBC/CMP(S)/MG(S)/CEA(PORT)/OV TODAY* OV(PORT)LAB EARLY/CH EMO 07/06* masci Start: 07-04-2024 Medicare Annual Wellness Visit Medicare Annual Wellness Visit (AWV) [facility] Start: 07-03-2024 History and physical examination, annual for health maintenance Wellness Visit [facility] Start: 06-29-2024 Advance Directive Discussion Advance Directive Discussion [facility] Start: 06-29-2024 Medicare Advantage Annual Wellness Visit Medicare Advantage Annual Wellness Visit [facility] Start: 06-26-2024 Lipid panel Lipid Panel [facility] Start: 06-23-2024 End: 06-23-2024 ambulatory 06/23/2024 4:00 PM [facility] Hematology/Oncology [address] [place] [address] Wstr, Lab/Port [place] [facility] Pending Sale To [facility] [address] [place] [address] D/C CADD* Hematology/Oncology Comment on above: D/C CADD* Start: 06-21-2024 End: 06-21-2024 ambulatory Hematology/Oncology Comment on above: Q2WK FOLFOX/AVASTIN/QMO B12(PORT)LAB&OV 06/20AUTH EXP 06/28/24* (SO)CBC/CMP(S)/MG(S) /CEA(PORT)/Q2WK FOLFOX/AVASTIN/QMO B12(PORT)AUTH EXP 06/28/24* OV(PORT)LAB EARLY/CH EMO* masci every other treatment UA/(SO)CBC/CMP(S)/MG (S)/CEA(PORT)/Q2WK FOLFOX/AVASTIN/QMO B12(PORT)AUTH EXP 06/28/24* (SO)CBC/CMP(S)/MG(S) /CEA(PORT)/OV & CHEMO TODAY* UA/(SO)CBC/CMP(S)/MG (S)/CEA(PORT)/OV & CHEMO TODAY* Start: 06-20-2024 End: 06-20-2024 ambulatory Hematology/Oncology Comment on above: (SO)CBC/CMP(S)/MG(S)/CEA(PORT)/OV TODAY* OV(PORT)LAB EARLY/CH EMO 06/21* masci Start: 06-14-2024 End: 06-14-2024 Patient encounter procedure 06/14/2024 8:30 AM EST [facility] [address] [place] [address] Luisito Hassan, HAND 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 [address] [place] [address] Colon Cancer, referral from Dr. Puri, [facility] [place]/chemo room Palliative Medicine Comment on above: Colon Cancer, referral from Dr. Puri, [facility] [place]/chemo room Start: 06-10-2024 End: 06-10-2024 ambulatory 06/10/2024 4:00 PM EST Infusion Center Hematology/Oncology [address] [place] [address] Wstr, Lab/Port [place] [facility] Pending Sale To [facility] [address] [place] [address] D/C CADD* Hematology/Oncology Comment on above: D/C CADD* Start: 06-08-2024 End: 06-08-2024 ambulatory Hematology/Oncology Comment on above: Q2WK FOLFOX/AVASTIN(PORT)LAB&OV UTH EXP 06/28/24* Q2WK FOLFOX/AVASTIN/ QMO B12(PORT)LAB&OV UTH EXP 06/28/24* CBC/CMP/MAG/CEA/Q2WK FOLFOX/AVASTIN/QMO B12(PORT)LAB&OV UTH EXP 06/28/24* Start: 06-06-2024 End: 06-06-2024 ambulatory Hematology/Oncology Comment on above: (SO)CBC/CMP(S)/MG(S)/CEA(PORT)/OV TODAY* OV(PORT)LAB EARLY/CH EMO 06/08* masci Start: 05-27-2024 End: 05-27-2024 ambulatory 05/27/2024 4:00 PM EST Infusion Center Hematology/Oncology [address] [place] [address] Wstr, Lab/Port [place] [facility] Pending Sale To [facility] [address] [place] [address] D/C CADD* Hematology/Oncology Comment on above: D/C CADD* Start: 05-25-2024 End: 05-25-2024 ambulatory 05/25/2024 9:00 AM EST Infusion Center Hematology/Oncology [address] [place] [address] Q2WK FOLFOX/AVASTIN(PORT)LAB& OV AUTH EXP 06/28/24* Hematology/Oncology Comment on above: Q2WK FOLFOX/AVASTIN(PORT)LAB&OV EXP 06/28/24* Start: 05-24-2024 End: 05-24-2024 ambulatory Hematology/Oncology Comment on above: (SO)CBC/CMP(S)/MG(S)/CEA(PORT)/OV TODAY* OV(PORT)LAB EARLY/CH EMO 05/25* masci Start: 05-13-2024 End: 05-13-2024 ambulatory 05/13/2024 4:00 PM EST Infusion Center Hematology/Oncology [address] [place] [address] Wstr, Lab/Port [place] [facility] Pending Sale To [facility] [address] [place] [address] D/C CADD* Hematology/Oncology Comment on above: D/C CADD* Start: 05-11-2024 End: 05-11-2024 ambulatory Hematology/Oncology Comment on above: Q2WK FOLFOX/AVASTIN(PORT)LAB&OV EXP 06/28/24* Q2WK FOLFOX/AVASTIN/ QMO B12(PORT)LAB&OV AUTH EXP 06/28/24* (SO)CBC/CMP(S)/MG(S) /CEA(PORT)/Q2WK FOLFOX/AVASTIN/QMO B12(PORT)LAB&OV AUTH EXP 06/28/24* Start: 05-10-2024 End: 05-10-2024 ambulatory Hematology/Oncology Comment on above: (SO)CBC/CMP(S)/MG(S)/CEA(PORT)/OV TODAY* OV(PORT)LAB EARLY/CH EMO 05/11* masci Start: 04-29-2024 End: 04-29-2024 ambulatory 04/29/2024 4:00 PM EDT Infusion Center Hematology/Oncology [address] [place] [address] Wstr, Lab/Port [place] [facility] Pending Sale To [facility] [address] [place] [address] D/C CADD* Hematology/Oncology Comment on above: D/C CADD* Start: 04-27-2024 End: 04-27-2024 ambulatory Hematology/Oncology Comment on above: Q2WK FOLFOX/AVASTIN(PORT)LAB&OV EXP 06/28/24* Q2WK FOLFOX/AVASTIN( PORT)LAB&OV EXP 06/28/24* Reprint schedule Start: 04-26-2024 End: [...] of colon (HCC) Expected: 04/12/2024, Expires: 11/10/2024 [facility] Work Phone: Comment on above: Expected: 04/12/2024, Expires: Start: 04-12-2024 End: 04-12-2024 ambulatory Hematology/Oncology Comment on above: (SO)CBC/CMP(S)/MG(S)/CEA(PORT)/OV TODAY* OV(PORT)LAB EARLY/CH EMO 04/13* masci Start: 04-08-2024 End: 04-08-2024 ambulatory Hematology/Oncology Comment on above: QWK B12 QWK B12/4-4* THEN QM O Start: 04-04-2024 End: 04-04-2024 Patient encounter procedure 04/04/2024 9:00 AM EDT Office Visit [facility] [address] [place] [id number] Dayami Roe MD [address] [place], [place] [id number] [facility] Start: 04-02-2024 End: 12-31-2024 Cholesterol in LDL [...] insulin (Multi) Expected: 04/02/2024 (Approximate), Expires: 12/31/2024 [facility] Work Phone: Comment on above: Expected: 04/02/2024 (Approximate), Expi res: 12/31/2024 Start: 04-02-2024 End: 12-31-2024 Hemoglobin A1c/Hemoglobin.total in Blood Hemoglobin A1C Lab Routine Type 2 diabetes mellitus without complication, without long-term current use of insulin (Multi) Expected: 04/02/2024 (Approximate), Expires: 12/31/2024 [facility] Work Phone: Comment on above: Expected: 04/02/2024 (Approximate), Expi res: 12/31/2024 Start: 04-01-2024 End: 04-01-2024 ambulatory 04/01/2024 4:00 PM EDT Infusion Center Hematology/Oncology [address] [place] [address] Wstr, Lab/Port [place] [facility] Pending Sale To [facility] [address] [place] [address] D/C CADD* Hematology/Oncology Comment on above: D/C CADD* Start: 03-30-2024 End: 03-30-2024 ambulatory Hematology/Oncology Comment on above: Q2WK FOLFOX/AVASTIN(PORT)LAB&OV 03/29/AUT H EXP 06/28/24* Q2WK FOLFOX/AVASTIN( PORT) / QWK B12/ LAB&OV 03/29/AUTH EXP 06/28/24* Q2WK FOLFOX/AVASTIN( PORT) / QWK B12 3-4/ LAB&OV AUTH EXP 06/28/24* B12 THEN QMO Start: 03-29-2024 [...] of insulin (HCC) Expected: 03/26/2024, Expires: 06/25/2024 [facility] Work Phone: Comment on above: Expected: 03/26/2024, Expires: Start: 03-26-2024 Hemoglobin A1c measurement Diabetes: Hemoglobin A1C [facility] Start: 03-23-2024 End: 03-23-2024 ambulatory 03/23/2024 10:45 AM EDT Infusion Center Hematology/Oncology [address] [place] [address] Wstr, Injection [facility] Pending Sale To [facility] [address] [place] [address] QWK B12(PORT)* Hematology/Oncology Comment on above: QWK [...] PM EDT Infusion Center Hematology/Oncology [address] [place] [address] Wstr, Lab/Port [place] [facility] Pending Sale To [facility] [address] [place] [address] D/C CADD* Hematology/Oncology Comment on above: D/C CADD* Start: 03-16-2024 End: 03-16-2024 ambulatory Hematology/Oncology Comment on above: Q2WK FOLFOX/AVASTIN(PORT)LAB&OV H EXP 06/28/24* ELECTROLYTES PER 02/27 7 TE* Start: 03-15-2024 End: 03-15-2024 ambulatory Hematology/Oncology Comment on above: (SO)CBC/CMP(S)/MG(S)/CEA(PORT)/OV TODAY* OV(PORT)LAB EARLY/CH EMO 03/16* masci Start: 03-08-2024 End: 03-08-2024 Patient encounter procedure [facility] Comment on above: Regional Education Coordinator consult Start: 03-04-2024 End: 03-04-2024 ambulatory 03/04/2024 4:00 PM EDT Infusion Center Hematology/Oncology [address] [place] [address] Wstr, Lab/Port [place] [facility] Pending Sale To [facility] [address] [place] [address] D/C CADD* Hematology/Oncology Comment on above: D/C CADD* Start: 03-02-2024 End: 03-02-2024 ambulatory Hematology/Oncology Comment on above: Q2WK FOLFOX/AVASTIN(PORT)LAB&OV EXP?* Q2WK FOLFOX/AVASTIN( PORT)LAB&OV EXP 06/28/24* Start: 03-01-2024 End: 03-01-2024 ambulatory Hematology/Oncology Comment on above: CBC/CMP/MAG/CEA(PORT)OV TODAY* OV(PORT)LAB EARLY/CH EMO 03/02* masci (SO)CBC/CMP(S)/MG(S) /CEA(PORT)/OV TODAY* Start: 02-28-2024 Covid-19 Vaccine ( season) Covid-19 Vaccine () [facility] Start: 02-28-2024 Influenza vaccination [facility] Start: 02-19-2024 End: 02-19-2024 ambulatory 02/19/2024 4:00 PM EDT Infusion Center Hematology/Oncology [address] [place] [address] Wstr, Lab/Port [place] [facility] Pending Sale To [facility] [address] [place] [address] D/C CADD* Hematology/Oncology Comment on above: D/C [...] to lung (HCC) Expected: 02/16/2024, Expires: 05/17/2024 [facility] Comment on above: Expected: 02/16/2024, Expires: Start: 02-16-2024 End: 05-17-2024 Ferritin [Mass/volume] in Serum or Plasma FERRITIN Lab Routine Iron deficiency anemia due to chronic blood loss Colon cancer metastasized to lung (HCC) Expected: 02/16/2024, Expires: 05/17/2024 [facility] Work Phone: Comment on above: Expected: 02/16/2024, Expires: 4 Start: 02-16-2024 End: 05-17-2024 Iron and Iron binding capacity panel - Serum or Plasma IRON AND TIBC Lab Routine Iron deficiency anemia due to chronic blood loss Colon cancer metastasized to lung (HCC) Expected: 02/16/2024, Expires: 05/17/2024 [facility] Comment on above: Expected: 02/16/2024, Expires: 4 Start: 02-16-2024 End: 02-16-2024 ambulatory Hematology/Oncology Comment on above: CBC/CMP/MAG/CEA(PORT)OV TODAY* OV(PORT)LAB EARLY/CH EMO 02/16* masci (SO)CBC/CMP(S)/MG(S) /CEA(PORT)/OV TODAY* Start: 02-05-2024 End: 02-05-2024 ambulatory 02/05/2024 4:00 PM EDT Infusion Center Hematology/Oncology [address] [place] [address] Wstr, Lab/Port [facility] Pending Sale To [facility] [address] [place] [address] D/C CADD* Hematology/Oncology Comment on above: D/C CADD* Start: 02-03-2024 End: 02-03-2024 ambulatory Hematology/Oncology Comment on above: Q2WK FOLFOX/AVASTIN(PORT)LAB&OV EXP?* Q2WK FOLFOX/AVASTIN( PORT)LAB&OV 02/01/AUTH EXP 06/28/24* Start: 02-02-2024 End: 05-03-2024 Bacteria identified in Urine by Culture [facility] Comment on above: Expected: 02/02/2024, Expires: Start: 02-02-2024 End: 05-03-2024 Urinalysis complete panel - Urine [facility] Work Phone: Comment on above: Expected: 02/02/2024, Expires: Start: 02-02-2024 End: 02-02-2024 ambulatory Hematology/Oncology Comment on above: CBC/CMP/MAG/CEA(PORT)OV TODAY* OV(PORT)LAB EARLY/CH EMO 02/02* (SO)CBC/CMP(S)/MG(S) /CEA(PORT)/OV TODAY* Start: 01-22-2024 End: 01-22-2024 ambulatory 01/22/2024 4:00 PM [facility] Infusion Center Hematology/Oncology [address] [place] [address] Wstr, Lab/Port [facility] Pending Sale To [facility] [address] [place] [address] D/C CADD* Hematology/Oncology Comment on above: D/C CADD* Start: 01-20-2024 End: 01-20-2024 ambulatory Hematology/Oncology Comment on above: Q2WK FOLFOX/AVASTIN(PORT)LAB&OV 01/18/AUT H EXP?* est pcp - Q2WK FOLFO X/AVASTIN(PORT)LAB&OV 01/18/AUTH EXP 06/28/24* Start: 01-19-2024 End: 01-19-2024 ambulatory Hematology/Oncology Comment on above: CBC/CMP/MAG/CEA(PORT)OV TODAY* OV(PORT)LAB EARLY/CH EMO 01/19* Start: 01-18-2024 Hemoglobin A1c measurement [facility] Start: 01-08-2024 End: 01-08-2024 ambulatory 01/08/2024 4:00 PM EDT Infusion Center Hematology/Oncology [address] [place] [address] Wstr, Lab/Port [facility] Pending Sale To [facility] [address] [place] [address] D/C CADD* Hematology/Oncology Comment on above: D/C CADD* Start: 01-06-2024 End: 01-06-2024 ambulatory 01/06/2024 9:30 AM EDT Infusion Center Hematology/Oncology [address] [place] [address] CBC/CMP/START Q2WK FOLFOX/AVASTIN(PORT)AUTH EXP?* Hematology/Oncology Comment on above: CBC/CMP/START Q2WK FOLFOX/AVASTIN(PORT)A [facility] EXP?* Start: 01-01-2024 End: 07-03-2024 Comprehensive metabolic 2000 panel - Serum or Plasma Comprehensive Metabolic Panel Lab Routine Mixed hyperlipidemia Hypertension, essential, benign Type 2 diabetes mellitus without complication, without long-term current use of insulin (CMS/HCC) Expected: 01/01/2024 (Approximate), Expires: 07/03/2024 [facility] Work Phone: Comment on above: Expected: 01/01/2024 (Approximate), Expi res: 07/03/2024 Start: 01-01-2024 End: 07-03-2024 Hemoglobin A1c/Hemoglobin.total in Blood Hemoglobin A1C Lab Routine Type 2 diabetes mellitus without complication, without long-term current use of insulin (CMS/HCC) Expected: 01/01/2024 (Approximate), Expires: 07/03/2024 [facility] Work Phone: Comment on above: Expected: 01/01/2024 [...] complication, without long-term current use of insulin ([facility]) Expected: 01/01/2024 (Approximate), Expires: 07/03/2024 [facility] Work Phone: Comment on above: Expected: 01/01/2024 (Approximate), Expi res: 07/03/2024 Start: 01-01-2024 End: 01-01-2024 Patient encounter procedure 01/01/2024 8:40 AM EDT Office Visit [facility] [address] [place] [phone] Dayami Roe MD [address] [place] [address] [facility] Start: 12-30-2023 End: 12-30-2023 ambulatory 12/30/2023 2:00 PM EDT Infusion Center Hematology/Oncology [address] [place] [address] IRON SUCROSE/5-5/AUTH EXP 06/28/24* Hematology/Oncology Comment on above: IRON SUCROSE/5-5/AUTH EXP 06/28/24* Start: 12-28-2023 End: 12-28-2023 Patient encounter procedure 12/28/2023 10:30 AM EDT Office Visit [facility] [address] [place] [address] [address] [place] [address] Hayden Balderas DO [address] [place] [address] [facility] Start: 12-28-2023 End: 12-28-2023 ambulatory 12/28/2023 10:00 AM EDT Infusion Center Hematology/Oncology [address] [place] [address] IRON SUCROSE/4-5/AUTH EXP 06/28/24* Hematology/Oncology Comment on above: IRON SUCROSE/4-5/AUTH EXP 06/28/24* Start: 12-27-2023 Urine screening for protein Diabetes: Urine Protein Screening [facility] Start: 12-25-2023 End: 12-25-2023 ambulatory 12/25/2023 2:30 PM EDT Infusion Center Hematology/Oncology [address] [place] [address] IRON SUCROSE/3-5/AUTH EXP 06/28/24* Hematology/Oncology Comment on above: IRON SUCROSE/3-5/AUTH EXP 06/28/24* Start: 12-25-2023 Lipid panel Lipid Panel [facility] Start: 12-23-2023 End: 12-23-2023 ambulatory 12/23/2023 2:00 PM EDT Infusion Center Hematology/Oncology [address] [place] [address] IRON SUCROSE/2-5/AUTH EXP 06/28/24* Hematology/Oncology Comment on above: IRON SUCROSE/2-5/AUTH EXP 06/28/24* Start: 12-21-2023 End: 12-21-2023 ambulatory 12/21/2023 11:00 AM EDT Infusion Center Hematology/Oncology [address] [place] [address] START IRON SUCROSE/1-5/AUTH EXP 06/28/24* Hematology/Oncology Comment on above: START IRON SUCROSE/1-5/AUTH EXP 06/28/24 * Start: 12-18-2023 End: 12-18-2023 ambulatory 12/18/2023 1:30 PM EDT Infusion Center Hematology/Oncology [address] [place] [address] [employer] Pending Sale To [facility] [address] [place] [address] CHEMO ED - FOLFOX/AVASTIN* Hematology/Oncology Comment on above: CHEMO ED - FOLFOX/AVASTIN* Start: 12-15-2023 End: 12-15-2023 ambulatory 12/15/2023 2:00 PM EDT Visit (SP) Office Hematology/Oncology [address] [place] [address] Aarti Bar DO [address] [place] [address] [employer] SUPPORT CONSULTANT/COLON CANCER WITH LIVER AND LUNG METS/REF.* Hematology/Oncology Comment on above: DESKTOP SUPPORT CONSULTANT/COLON CANCER WITH LIVER AND LUNG METS /REF.* Start: 12-15-2023 End: 03-15-2024 Carcinoembryonic Ag [Mass/volume] in Serum or Plasma [facility] Work Phone: Comment on above: Expected: 12/15/2023, Expires: 4 Start: 12-15-2023 End: 03-15-2024 [id number] GENOTYPING PANEL [facility] Comment on above: Expected: 12/15/2023, Expires: Start: 11-24-2023 End: 11-24-2023 Patient encounter procedure 11/24/2023 2:00 PM EDT Office Visit [facility] [address] [place] [address] Hayden Balderas, DO [address] [place] [address] [facility] Start: 11-13-2023 End: 11-12-2024 CBC W Auto Differential panel - Blood [facility] Service Area Work Phone: Comment on above: Expected: 11/13/2023 (Approximate), Expi res: 11/12/2024 Start: 11-13-2023 End: 11-12-2024 Cobalamin (Vitamin B12) [Mass/volume] in Serum or Plasma [facility] Work Phone: Comment on above: Expected: 11/13/2023 (Approximate), Expi res: 11/12/2024 Start: 11-13-2023 End: 11-12-2024 Ferritin [Mass/volume] in Serum or Plasma [facility] Work Phone: Comment on above: Expected: 11/13/2023 (Approximate), Expi res: 11/12/2024 Start: 11-13-2023 End: 11-12-2024 Iron and Iron binding capacity panel - Serum or Plasma [facility] Work Phone: Comment on above: Expected: 11/13/2023 (Approximate), Expi res: 11/12/2024 Start: 11-13-2023 End: 11-12-2024 Reticulocytes panel - Blood [facility] Work Phone: Comment on above: Expected: 11/13/2023 (Approximate), Expi res: 11/12/2024 Start: 11-12-2023 End: 11-10-2024 PET+CT Guidance for localization of tumor of Skull base to mid-thigh-- W [id number] IV PET Tumor Imaging With CT Skull To Thigh Imaging Routine Adenocarcinoma of colon (HCC) Expected: 11/12/2023, Expires: 11/10/2024 [facility] Comment on above: Expected: 11/12/2023, Expires: Start: 11-11-2023 End: 11-11-2023 Patient encounter procedure 11/11/2023 2:45 PM EDT Office Visit [facility] [address] [place] [id number] Hayden Balderas DO [address] [place] [id number] [facility] Start: 10-30-2023 End: 10-30-2023 Patient encounter procedure 10/30/2023 1:40 PM EDT [facility] Visit [facility] [address] [place] [address] Dayami Roe MD [address] [id number] [facility] Start: 09-25-2023 Hemoglobin A1c measurement Diabetes: Hemoglobin A1C [facility] Start: 07-04-2023 Medicare Annual Wellness Visit Medicare Annual Wellness Visit (AWV) [facility] Start: 07-03-2023 End: 01-01-2024 Cholesterol in LDL [...] insulin (CMS/HCC) Expected: 07/03/2023 (Approximate), Expires: 01/01/2024 [facility] Work Phone: Comment on above: Expected: 07/03/2023 (Approximate), Expi res: 01/01/2024 Start: 07-03-2023 End: 01-01-2024 Hemoglobin A1c/Hemoglobin.total in Blood Hemoglobin A1C Lab Routine Type 2 diabetes mellitus without complication, without long-term current use of insulin (CMS/HCC) Expected: 07/03/2023 (Approximate), Expires: 01/01/2024 [facility] Work Phone: Comment on above: Expected: 07/03/2023 (Approximate), Expi res: 01/01/2024 Start: 07-03-2023 End: 07-03-2024 Lipid 1996 panel - Serum or Plasma Lipid Panel Lab Routine Mixed hyperlipidemia Type 2 diabetes mellitus without complication, without long-term current use of insulin (CMS/HCC) Expected: 07/03/2023 (Approximate), Expires: 07/03/2024 [facility] Work Phone: Comment on above: Expected: 07/03/2023 (Approximate), Expi res: 07/03/2024 Start: 07-03-2023 End: 07-03-2023 Patient encounter procedure 07/03/2023 8:20 AM EST Office Visit [facility] [address] [place] [phone] Dayami Roe MD [address] [place] [address] [facility] Start: 06-29-2023 Advance Directive Discussion Advance Directive Discussion [facility] Start: 06-29-2023 Behavioral Health Screening Behavioral Health Screening [facility] Start: 06-29-2023 zzBehavioral Health Screening zBehavioral Health Screening [facility] Start: 06-25-2023 Hemoglobin A1c measurement A1C [facility] Start: 03-26-2023 Hemoglobin A1c measurement Diabetes: Hemoglobin A1C [facility] Start: 02-27-2023 Covid-19 Vaccine ( season) Covid-19 Vaccine ( season) [facility] Start: 02-27-2023 COVID-19 Vaccine ( season) COVID-19 Vaccine ( season) [facility] Start: 02-27-2023 Influenza vaccination [facility] Start: 12-31-2022 End: 01-01-2024 Prostate specific Ag [Mass/volume] in Serum or Plasma Prostate Specific Antigen, Screen Lab Routine Prostate cancer screening Expected: 12/31/2022 (Approximate), Expires: 01/01/2024 [facility] Work Phone: Comment on above: Expected: 12/31/2022 (Approximate), Expi res: 01/01/2024 Start: 12-31-2022 EPV, Provider: Dayami Roe, Status: Pen, Time: 9:20 AM EPV, Provider: Dayami Roe, Status: Pen, Time: 9:20 AM [facility] Work Phone: Start: 10-24-2022 RSV Vaccine (1 - 1-dose 75+ series) RSV Vaccine (1 - 1-dose 75+ series) [facility] Start: 07-25-2022 COVID-19 Vaccine (4 - Booster for Moderna series) COVID-19 Vaccine (4 - Booster for Moderna series) [facility] Start: 07-25-2022 COVID-19 Vaccine (4 - Moderna series) COVID-19 Vaccine (4 - Moderna series) [facility] Start: 07-03-2022 EPV, Provider: Dayami Roe, Status: Pen, Time: 9:20 AM EPV, Provider: Dayami Roe, Status: Pen, Time: 9:20 AM [facility] Work Phone: Start: 06-09-2022 End: 06-09-2022 Patient encounter procedure 06/09/2022 Appointment Cardiology Dipti Hoffman MD [address] [place], [place] [phone] [facility] Start: 05-27-2022 End: 05-27-2022 Patient encounter procedure 05/27/2022 Office Visit Cardiology Dipti Hoffman MD [address] [place] [id number] [facility] Start: 04-24-2022 FUV, Provider: Ambrosio Bailey, Status: Pen, Time: 11:15 AM FUV, Provider: Ambrosio Bailey, Status: Pen, Time: 11:15 AM [facility] Work Phone: Start: 04-14-2022 NPV, Provider: Tamara Sesay, Status: Pen, Time: 9:00 AM NPV, Provider: Tamara Sesay, Status: Pen, Time: 9:00 AM [facility] Work Phone: Start: 04-01-2022 EPV, Provider: Dayami Roe, Status: Pen, Time: 11:00 AM EPV, Provider: Dayami Roe, Status: Pen, Time: 11:00 AM -[facility] Work Phone: Start: 03-25-2022 EPV, Provider: Dayami Roe, Status: Pen, Time: 3:40 PM EPV, Provider: Dayami Roe, Status: Pen, Time: 3:40 PM -[facility] Work Phone: Start: 03-07-2022 EPV, Provider: Dayami Roe, Status: Pen, Time: 3:00 PM EPV, Provider: Dayami Roe, Status: Pen, Time: 3:00 PM -[facility] Work Phone: Start: 02-27-2022 Influenza vaccination Sequential Influenza Vaccine (#1) [facility] Start: 02-26-2022 EPV, Provider: Dayami Roe, Status: Pen, Time: 8:00 AM EPV, Provider: Dayami Roe, Status: Pen, Time: 8:00 AM [facility] Work Phone: Start: 02-10-2022 End: 02-10-2022 Admission to same day surgery center 02/10/2022 Surgery Cardiology Baljinder Banegas MD [address] [place] [address] Left Heart Cath Possbile PTCA/Stent [facility] Comment on above: Left Heart Cath Possbile PTCA/Stent Start: 02-10-2022 Subsequent hospital visit by physician [facility] Proced[facility] Unit Start: 01-28-2022 End: 01-28-2022 Patient encounter procedure 01/28/2022 Office Visit Cardiology Dameon Rai, [address] [place] [address] Dipti Hoffman MD [address] [place] [address] [facility] Start: 01-22-2022 EPV, Provider: Dayami Roe, Status: Pen, Time: 8:40 AM EPV, Provider: Dayami Roe, Status: Pen, Time: 8:40 AM -[facility] Work Phone: Start: 09-01-2021 COVID-19 Vaccine (4 - Booster for Moderna series) COVID-19 Vaccine (4 - Booster for Moderna series) [facility] Start: 07-02-2021 EPV, Provider: Dayami Roe, Status: Pen, Time: 8:40 AM EPV, Provider: Dayami Roe, Status: Pen, Time: 8:40 AM [facility] Work Phone: Start: 06-29-2021 COVID-19 Vaccine (4 - Booster for Moderna series) COVID-19 Vaccine (4 - Booster for Moderna series) [facility] Start: 06-19-2021 EPV, Provider: Dayami Roe, Status: Pen, Time: 8:40 AM EPV, Provider: Dayami Roe, Status: Pen, Time: 8:40 AM [facility] Work Phone: Start: 12-26-2020 EPV, Provider: Dayami Roe, Status: Pen, Time: 8:40 AM EPV, Provider: Dayami Roe, Status: Pen, Time: 8:40 AM -[facility] Work Phone: Start: 10-24-2012 Abdominal aortic aneurysm screening Abdominal Aortic Aneurysm (AAA) Screening [facility] Start: 10-24-2012 Fall risk assessment Falls Risk Assessment [facility] Start: 2007 Hepatitis B Vaccines (1 of 3 - Risk 3-dose series) Hepatitis B Vaccines (1 of 3 - Risk 3-dose series) [facility] Start: 2007 RSV patients and/or patients aged 60+ years (1 - 1-dose 60+ series) RSV patients and/or patients aged 60+ years (1 - 1-dose 60+ series) [facility] Start: 2007 RSV Vaccine (1 - 1-dose 60+ series) RSV Vaccine (1 - 1-dose 60+ series) [facility] Start: 10-24-1997 Administration of herpes zoster vaccine Zoster Vaccines (1 of 2) [facility] Start: 10-24-1997 Screening for malignant neoplasm of colon [facility] Start: 10-24-1997 Shingrix Vaccine (1 of 2) Shingrix Vaccine (1 of 2) [facility] Start: 10-24-1997 Zoster Vaccines (1 of 2) Zoster Vaccines (1 of 2) [facility] Start: 10-24-1969 DTaP/Tdap/Td Vaccines (1 - Tdap) DTaP/Tdap/Td Vaccines (1 - Tdap) [facility] Start: 10-24-1966 Hepatitis A Vaccines (1 of 2 - Risk 2-dose series) Hepatitis A Vaccines (1 of 2 - Risk 2-dose series) [facility] Start: 10-24-1966 Shingrix Vaccine (1 of 2) Shingrix Vaccine (1 of 2) [facility] Start: 10-24-1966 Urine microalbumin profile DTaP,Tdap,Td Vaccine (1 - Tdap) [facility] Start: 10-24-1965 Anxiety Screening Anxiety Screening [facility] Start: 10-24-1965 BP Controlled (<130/80) BP Controlled (<130/80) [facility] Start: 10-24-1965 Depression Screening Depression Screening [facility] Start: 10-24-1965 Hepatitis C screening Hepatitis C Screening [facility] Start: 1959 Depression screening using PHQ-9 (Patient Health Questionnaire 9) score Depression Screening (PHQ-2/9) [facility] Start: 10-24-1957 Diabetic foot examination [facility] Start: 10-24-1957 Glaucoma screening [facility] Start: 10-24-1957 Microalbumin measurement, urine, quantitative Urine Microalbumin [facility] Start: 10-24-1957 Ophthalmic examination and evaluation [facility] Start: 10-24-1957 Urine screening for protein Urine Microalbumin [facility] Start: 10-24-1950 History and physical examination, annual for health maintenance Wellness Visit [facility] Start: 1947 Hemoglobin A1c measurement A1C [facility] Start: 1947 Medicare Annual Wellness Visit Medicare Annual Wellness Visit (AWV) [facility] Start: 1947 Prostate specific antigen measurement PSA Level [facility] Start: 1947 Screening for malignant neoplasm of colon [facility] Bilirubin measuremen t, urine [facility] Carcinoembryonic Ag [Mass/volume] in Serum or Plasma CARCINOEMBRYONIC ANTIGEN Lab Routine Cancer of cecum (HCC) 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) 01/19/2024 3:34 PM T [facility] Work Phone: Carcinoembryonic Ag [Mass/volume] in Serum or Plasma CARCINOEMBRYONIC ANTIGEN Lab Routine Cancer of cecum (HCC) 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) 02/02/2024 10:47 AM [facility] Work Phone: Carcinoembryonic Ag [Mass/volume] in Serum or Plasma CARCINOEMBRYONIC ANTIGEN Lab Routine Cancer of cecum (HCC) 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) 02/16/2024 9:33 AM [facility] Work Phone: Carcinoembryonic Ag [Mass/volume] in Serum or Plasma CARCINOEMBRYONIC ANTIGEN Lab Routine Cancer of cecum (HCC) 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) 03/01/2024 9:05 AM [facility] Work Phone: Carcinoembryonic Ag [Mass/volume] in Serum or Plasma CARCINOEMBRYONIC ANTIGEN Lab Routine Cancer of cecum (HCC) 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) 03/15/2024 8:40 AM [facility] Carcinoembryonic Ag [Mass/volume] in Serum or Plasma CARCINOEMBRYONIC ANTIGEN Lab Routine Cancer of cecum (HCC) 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) 03/29/2024 8:07 AM [facility] Work Phone: Carcinoembryonic Ag [Mass/volume] in Serum or Plasma CARCINOEMBRYONIC ANTIGEN Lab Routine Cancer of cecum (HCC) 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) 04/12/2024 9:56 AM [facility] Work Phone: Carcinoembryonic Ag [Mass/volume] in Serum or Plasma CARCINOEMBRYONIC ANTIGEN Lab Routine Cancer of cecum (HCC) 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) 04/26/2024 9:43 AM [facility] Work Phone: Carcinoembryonic Ag [Mass/volume] in Serum or Plasma CARCINOEMBRYONIC ANTIGEN Lab Routine Cancer of cecum (HCC) 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) 05/11/2024 9:22 AM [facility] Work Phone: Carcinoembryonic Ag [Mass/volume] in Serum or Plasma CARCINOEMBRYONIC ANTIGEN Lab Routine Cancer of cecum (HCC) 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) 05/24/2024 9:23 AM [facility] Work Phone: Carcinoembryonic Ag [Mass/volume] in Serum or Plasma CARCINOEMBRYONIC ANTIGEN Lab Routine Cancer of cecum (HCC) 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) 06/08/2024 9:24 AM [facility] Work Phone: Carcinoembryonic Ag [Mass/volume] in Serum or Plasma CARCINOEMBRYONIC ANTIGEN Lab Routine Cancer of cecum (HCC) 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) 06/21/2024 8:22 AM [facility] Work Phone: Carcinoembryonic Ag [Mass/volume] in Serum or Plasma CARCINOEMBRYONIC ANTIGEN Lab Routine Cancer of cecum (HCC) 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) Anemia due to vitamin B12 deficiency, unspecified B12 deficiency type History of iron deficiency 07/06/2024 8:46 AM [facility] Work Phone: Carcinoembryonic Ag [Mass/volume] in Serum or Plasma CARCINOEMBRYONIC ANTIGEN Lab Routine Cancer of cecum (HCC) 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) Anemia due to vitamin B12 deficiency, unspecified B12 deficiency type History of iron deficiency 08/03/2024 8:53 AM [facility] Work Phone: Carcinoembryonic Ag [Mass/volume] in Serum or Plasma CARCINOEMBRYONIC ANTIGEN Lab Routine Cancer of cecum (HCC) 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) Anemia due to vitamin B12 deficiency, unspecified B12 deficiency type History of iron deficiency 08/10/2024 1:09 PM [facility] Work Phone: End: 08-17-2025 Carcinoembryonic Ag [Mass/volume] in Serum or Plasma CARCINOEMBRYONIC ANTIGEN Lab Routine Metastatic colon cancer to liver (HCC) Every other week for 26 Occurrences starting 08/17/2024 until 08/17/2025 [facility] Work Phone: Comment on above: Every other week for 26 Occurrences star ting 08/17/2024 until 08/17/2025 Carcinoembryonic Ag [Mass/volume] in Serum or Plasma CARCINOEMBRYONIC ANTIGEN Lab Routine Cancer of cecum (HCC) 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) Anemia due to vitamin B12 deficiency, unspecified B12 deficiency type History of iron deficiency 08/31/2024 8:59 AM [facility] Work Phone: Carcinoembryonic Ag [Mass/volume] in Serum or Plasma CARCINOEMBRYONIC ANTIGEN Lab Routine Metastatic colon cancer to liver (HCC) 09/14/2024 9:15 AM [facility] Work Phone: Carcinoembryonic Ag [Mass/volume] in Serum or Plasma CARCINOEMBRYONIC ANTIGEN Lab Routine Cancer of cecum (HCC) 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) Anemia due to vitamin B12 deficiency, unspecified B12 deficiency type History of iron deficiency 09/28/2024 10:04 AM [facility] Work Phone: Carcinoembryonic Ag [Mass/volume] in Serum or Plasma CARCINOEMBRYONIC ANTIGEN Lab Routine Metastatic colon cancer to liver (HCC) 10/12/2024 9:59 AM [facility] Work Phone: Carcinoembryonic Ag [Mass/volume] in Serum or Plasma CARCINOEMBRYONIC ANTIGEN Lab Routine Cancer of cecum (HCC) 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) Anemia due to vitamin B12 deficiency, unspecified B12 deficiency type History of iron deficiency 10/26/2024 9:15 AM [facility] Work Phone: Carcinoembryonic Ag [Mass/volume] in Serum or Plasma CARCINOEMBRYONIC ANTIGEN Lab Routine Metastatic colon cancer to liver (HCC) 11/09/2024 9:13 AM [facility] Work Phone: Carcinoembryonic Ag [Mass/volume] in Serum or Plasma CARCINOEMBRYONIC ANTIGEN Lab Routine Metastatic colon cancer to liver (HCC) 11/23/2024 10:23 AM [facility] Work Phone: Carcinoembryonic Ag [Mass/volume] in Serum or Plasma CARCINOEMBRYONIC ANTIGEN Lab Routine Metastatic colon cancer to liver (HCC) 11/30/2024 10:02 AM [facility] Work Phone: Carcinoembryonic Ag [Mass/volume] in Serum or Plasma CARCINOEMBRYONIC ANTIGEN Lab Routine Cancer of cecum (HCC) 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) Anemia due to vitamin B12 deficiency, unspecified B12 deficiency type History of iron deficiency 12/05/2024 8:07 AM [facility] Carcinoembryonic Ag [Mass/volume] in Serum or Plasma CARCINOEMBRYONIC ANTIGEN Lab Routine Metastatic colon cancer to liver (HCC) 12/15/2024 11:28 AM [facility] Work Phone: Carcinoembryonic Ag [Mass/volume] in Serum or Plasma CARCINOEMBRYONIC ANTIGEN Lab Routine Metastatic colon cancer to liver (HCC) 02/14/2025 8:31 AM EDT [facility] Work Phone: End: 11-10-2024 Carcinoembryonic antigen measurement CEA Lab Routine Adenocarcinoma of colon (HCC) 1 Occurrences starting 11/11/2023 until 11/10/2024 [facility] Comment on above: 1 Occurrences starting 11/11/2023 until 11/10/2024 Carcinoembryonic ant igen measurement CEA Lab Routine Adenocarcinoma of colon (HCC) 11/11/2023 4:51 PM EDT [facility] CBC W Auto Different ial panel - Blood COMPLETE BLOOD COUNT AND DIFFERENTIAL Lab STAT Cancer of cecum (HCC) 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) 03/15/2024 8:40 AM EDT [facility] Work Phone: Clostridioides diffi cile toxin genes [Presence] in Stool by ROYCE with probe detection C. DIFFICILE PCR Lab Routine Cancer of cecum (HCC) Metastatic colon cancer to liver (HCC) Diarrhea of presumed infectious origin 02/02/2024 1:46 PM EDT [facility] Cobalamin (Vitamin B 12) [Mass/volume] in Serum or Plasma VITAMIN B12 Lab Routine Iron deficiency anemia due to chronic blood loss Colon cancer metastasized to lung (HCC) 03/15/2024 8:40 AM [facility] COVID & INFLUENZA A/ B & RSV PCR, ROUTINE COVID & INFLUENZA A/B & RSV PCR, ROUTINE Microbiology Routine Lower respiratory infection (e.g., bronchitis, pneumonia, pneumonitis, pulmonitis) Ordered: 06/28/2024 [facility] Work Phone: Comment on above: Ordered: 06/28/2024 Creatine kinase [Enzymatic activity/volume] in Serum or Plasma [facility] End: 03-31-2025 CT Abdomen and Pelvis W contrast IV CT ABD/PEL W IVCON Radiology Routine Cancer of cecum (HCC) Colon cancer metastasized to lung (HCC) Malignant neoplasm of colon, unspecified part of colon (HCC) 1 Occurrences starting 03/01/2024 until 03/31/2025 [facility] Work Phone: Comment on above: 1 Occurrences starting 03/01/2024 until 03/31/2025 CT Abdomen and Pelvi s W contrast IV CT ABD/PEL W IVCON Radiology Routine Cancer of cecum (HCC) Colon cancer metastasized to lung (HCC) Malignant neoplasm of colon, unspecified part of colon (HCC) 03/21/2024 10:03 AM [facility] Work Phone: End: 08-20-2025 CT Abdomen and Pelvis W contrast IV CT ABD/PEL W IVCON Radiology Routine Cancer of cecum (HCC) 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) 1 Occurrences starting 07/20/2024 until 08/20/2025 [facility] Comment on above: 1 Occurrences starting 07/20/2024 until 08/20/2025 CT Abdomen and Pelvi s W contrast IV CT ABD/PEL W IVCON Radiology Routine Cancer of cecum (HCC) 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) 08/10/2024 2:36 PM [facility] End: 11-11-2025 CT Abdomen and Pelvis W contrast IV CT ABD/PEL W IVCON Radiology Routine Cancer of cecum (HCC) 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) 1 Occurrences starting 10/12/2024 until 11/11/2025 [facility] Comment on above: 1 Occurrences starting 10/12/2024 until 11/11/2025 CT Abdomen and Pelvi s W contrast IV CT ABD/PEL W IVCON Radiology Routine Cancer of cecum (HCC) 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) 11/02/2024 9:17 AM [facility] End: 02-17-2026 CT Abdomen and Pelvis W contrast IV CT ABD/PEL W IVCON Radiology Routine Metastatic colon cancer to liver (HCC) Cancer of cecum (HCC) 1 Occurrences starting 01/17/2025 until 02/17/2026 [facility] Comment on above: 1 Occurrences starting 01/17/2025 until 02/17/2026 CT Abdomen and Pelvi s W contrast IV CT ABD/PEL W IVCON Radiology Routine Metastatic colon cancer to liver (HCC) Cancer of cecum (HCC) 02/07/2025 10:03 AM [facility] End: 03-31-2025 CT Chest W contrast IV CT CHEST W IVCON Radiology Routine Cancer of cecum (HCC) Colon cancer metastasized to lung (HCC) Malignant neoplasm of colon, unspecified part of colon (HCC) 1 Occurrences starting 03/01/2024 until 03/31/2025 [facility] Comment on above: 1 Occurrences starting 03/01/2024 until 03/31/2025 CT Chest W contrast IV CT CHEST W IVCON Radiology Routine Cancer of cecum (HCC) Colon cancer metastasized to lung (HCC) Malignant neoplasm of colon, unspecified part of colon (HCC) 03/21/2024 10:03 AM EDT [facility] End: 08-19-2025 CT Chest W contrast IV CT CHEST W IVCON Radiology Routine Cancer of cecum (HCC) 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) 1 Occurrences starting 07/20/2024 until 08/19/2025 [facility] Work Phone: Comment on above: 1 Occurrences starting 07/20/2024 until 08/19/2025 CT Chest W contrast IV CT CHEST W IVCON Radiology Routine Cancer of cecum (HCC) 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) 08/10/2024 2:36 PM [facility] Work Phone: End: 11-11-2025 CT Chest W contrast IV CT CHEST W IVCON Radiology Routine Cancer of cecum (HCC) 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) 1 Occurrences starting 10/12/2024 until 11/11/2025 [facility] Work Phone: Comment on above: 1 Occurrences starting 10/12/2024 until 11/11/2025 CT Chest W contrast IV CT CHEST W IVCON Radiology Routine Cancer of cecum (HCC) 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) 11/02/2024 9:17 AM [facility] Work Phone: End: 02-16-2026 CT Chest W contrast IV CT CHEST W IVCON Radiology Routine Metastatic colon cancer to liver (HCC) Cancer of cecum (HCC) 1 Occurrences starting 01/17/2025 until 02/16/2026 [facility] Comment on above: 1 Occurrences starting 01/17/2025 until 02/16/2026 CT Chest W contrast IV CT CHEST W IVCON Radiology Routine Metastatic colon cancer to liver (HCC) Cancer of cecum (HCC) 02/07/2025 10:03 AM EDT [facility] Work Phone: End: 07-27-2023 Echocardiography Echocardiogram complete Echocardiography Routine Coronary artery disease involving [place] coronary artery of [place] heart without angina pectoris Dyspnea, unspecified type 1 Occurrences starting 05/27/2022 until 07/27/2023 [facility] Work Phone: Comment on above: 1 Occurrences starting 05/27/2022 until 07/27/2023 ENTERIC BACTERIAL PA HARVEY BY PCR ENTERIC BACTERIAL PANEL BY PCR Lab Routine Cancer of cecum (HCC) Metastatic colon cancer to liver (HCC) Diarrhea of presumed infectious origin 02/02/2024 1:46 PM EDT [facility] Ferritin [Mass/volum e] in Serum or Plasma FERRITIN Lab Routine Iron deficiency anemia due to chronic blood loss Colon cancer metastasized to lung (HCC) 03/15/2024 8:40 AM [facility] Work Phone: Hemoglobin [Presence ] in Urine [facility] Hemoglobin A1c in Blood HEMOGLOB IN A1C Lab Routine Controlled type 2 diabetes mellitus without complication, with long-term current use of insulin (HCC) 04/12/2024 9:56 AM T [facility] Work Phone: Iron and Iron bindin g capacity panel - Serum or Plasma IRON AND TIBC Lab Routine Iron deficiency anemia due to chronic blood loss Colon cancer metastasized to lung (HCC) 03/15/2024 8:40 AM T [facility] LEFT HEART CATH POSS IBLE PTCA/STENT LEFT HEART CATH POSSIBLE PTCA/STENT Shortness of Breath [facility] Magnesium measurement [facility] Measurement of [place] es in urine using dipstick [facility]sc[facility] End: 11-10-2024 MTB SCREEN MTB SCREEN Lab Routine Adenocarcinoma of colon (HCC) 1 Occurrences starting 11/11/2023 until 11/10/2024 [facility] Comment on above: 1 Occurrences starting 11/11/2023 until 11/10/2024 MTB SCREEN MTB SCREEN Lab R outine Adenocarcinoma of colon (HCC) [facility] Specific gravity of Urine [facility] Tempus xF - Blood/Li quid Biopsy Sample Tempus xF - Blood/Liquid Biopsy Sample Lab Routine Adenocarcinoma of colon (HCC) 11/11/2023 4:57 PM EDT [facility] Tempus xT - Tumor Sample Tempus xT - Tumor Sample Lab Routine Adenocarcinoma of colon (HCC) 10/28/2023 11:42 AM EDT [facility] Work Phone: UA DIP B/O UA DIP B/O Lab R outine Cancer of cecum (HCC) Ordered: 12/05/2024 [facility] Work Phone: Comment on above: Ordered: 12/05/2024 UA DIP, URINE (POC) UA DIP, URIN E (POC) Lab Routine Cancer of cecum (HCC) Ordered: 01/06/2024 [facility] Work Phone: Comment on above: Ordered: 01/06/2024 UA DIP, URINE (POC) UA DIP, URIN E (POC) Lab Routine Cancer of cecum (HCC) 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) Ordered: 05/25/2024 [facility] Work Phone: Comment on above: Ordered: 05/25/2024 End: 07-20-2025 UA DIP, URINE (POC) UA DIP, URINE (POC) Lab Routine Cancer of cecum (HCC) 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) Once per month for 12 Occurrences starting 07/20/2024 until 07/20/2025 [facility] Comment on above: Once per month for 12 Occurrences starti ng 07/20/2024 until 07/20/[address] [facility] Urine culture [facility] Urine culture [facility] Urine dipstick for glucose [facility] Urine dipstick for leukocyte esterase [facility] Urine dipstick for nitrite [facility] Urine dipstick for protein [facility] Urine examination [facility] Urine microscopy: epithelial cells [facility] Urine Microscopy: wh ite cells [facility] Urobilinogen [Presen ce] in Urine [facility] Immunizations Immunization Date Immunization Notes Care Provider Carlie huitron 03-08-2024 influenza, high dose seasonal, preservative-free Dayami Puri MD Work Phone: [facility] 03-08-2024 influenza virus vaccine, unspecified formulation Dayami Puri MD Work Phone: [facility] 05-30-2022 Fluzone High-Dose Quadrivalent 0.7 ML Intramuscular Suspension Prefilled Syringe Dayami Roe Work Phone: [facility] Work Phone: 05-30-2022 Pfizer COVID-19 Vac Bivalent 30 MCG/0.3ML Intramuscular Suspension Dayami Roe Work Phone: [facility] Work Phone: 05-30-2022 influenza virus vaccine, unspecified formulation Dayami Roe MD Work Phone: [facility] Work Phone: 08-05-2021 tetanus toxoid, redu cristobal diphtheria toxoid, and acellular pertussis vaccine, adsorbed Dameon Rai DO Work Phone: [facility] 05-04-2021 Moderna COVID-19 Vaccine 100 MCG/0.5ML Intramuscular Suspension Dayami Roe Work Phone: [facility] Work Phone: 09-27-2020 Moderna COVID-19 Vaccine 100 MCG/0.5ML Intramuscular Suspension Dayami Roe Work Phone: [facility] Work Phone: 08-30-2020 Moderna COVID-19 Vaccine 100 MCG/0.5ML Intramuscular Suspension Dayami Roe Work Phone: [facility] Work Phone: 07-21-2019 influenza, seasonal, injectable Dayami Roe Work Phone: [facility] Work Phone: Comment on above: Series: 07-21-2019 pneumococcal conjuga te vaccine, 13 valent Dayami oRe Work Phone: [facility] Comment on above: Series: 07-21-2019 Seasonal trivalent influenza vaccine, adjuvanted, preservative free Dayami Puri MD Work Phone: [facility] 07-21-2019 influenza virus vaccine, unspecified formulation Aarti Bar DO Work Phone: [facility] 06-10-2016 pneumococcal conjuga te vaccine, 13 valent Dayami Roe Work Phone: [facility] Work Phone: Comment on above: Series: 11-12-2012 pneumococcal polysaccharide vaccine, 23 valent Dayami Roe Work Phone: [facility] Comment on above: Series: 10-30-1998 tetanus toxoid, unspecified formulation Dayami Roe MD Work Phone: [facility] Work Phone: Payers Date Payer Category Payer Self-pay 2024 Medicare (Managed Care) O [employer] HMO Member Subscriber Plan / Payer (Effective 2024-Present) Name: Dipti Sierra Relation to Subscriber: Self Name: Dipti Sierra Payer ID: Not on file Type: O Address: [place] [id number] 2024 Private Health Insurance [employer] [address] [place] [address] [id number] 06-29-2022 Unknown 06-29-2022 Unknown [id number] 06-29-2021 Medicare [id number] 06-29-2021 Medicare [id number] 09-27-2012 Medicare [id number] 09-16-2006 Unknown [id number] 1945 Unknown [id number] 2.840.1.983337.3.579 .2.1068 1945 Unknown [id number] 2.840.1.267355.3.579 .2.1068 1945 Unknown [id number] 2.840.1.374951.3.579 .2.1068 1945 Unknown [id number] 2.840.1.938326.3.579 .2.1068 1947 Unknown [id number] 2.840.1.394082.3.579 .2.1068 1947 Unknown [id number] 2.16840.1.562089.3.579 .2.1068 1947 Unknown [id number] 2.16840.1.371299.3.579 .2.1068 1947 Unknown [id number] 2.16840.1.305385.3.579 .2. 1945 Unknown [id number] 2.16840.1.347094.3.579 .2.356 1947 Unknown [id number] 2.16840.1.988237.3.579 .2.356 1947 Unknown [id number] 2.16.840.1.754677.3.579 .2.356 1945 Unknown [id number] 2.16.840.1.319631.3.579 .2.356 1945 Unknown [id number] 2.16.840.1.386495.3.579 .2.902 1945 Unknown [id number] 2.16.840.1.880226.3.579 .2.902 1947 Unknown [id number] 2.16840.1.274895.3.579 .2.90 1947 Unknown [id number] 2.16840.1.322739.3.579 .2.903 1947 Unknown [id number] 2.16840.1.872460.3.579 .2.90 1947 Unknown [id number] 2.16840.1.803916.3.579 .2.903 1947 Unknown [id number] 2.840.1.066931.3.579 .2.903 1947 Unknown [id number] 2.16.840.1.917194.3.579 .2.903 1947 Unknown [id number] 2.16840.1.828722.3.579 .2.903 1947 Unknown [id number] 2.16.840.1.541155.3.579 .2.903 1947 Unknown [id number] 2.16840.1.934372.3.579 .2.903 1947 Unknown [id number] 2.16840.1.445629.3.579 .2.1244 1947 Unknown [id number] 2.16840.1.158559.3.579 .2.1244 1948 Unknown [id number] 2.16840.1.351028.3.579 .2.124 1947 Unknown [id number] 2.840.1.316892.3.579 .2.1243 1947 Unknown [id number] 2.840.1.102479.3.579 .2.1244 1947 Unknown [id number] 2.840.1.233314.3.579 .2.124 1947 Unknown [id number] 2.840.1.189601.3.579 .2.1244 1947 Unknown [id number] 2.840.1.941159.3.579 .2.1245 Medicare [id number] Unknown [id number] 2.840.1.865858.3.579 .2.462 Unknown [id number] 2.16840.1.918446.3.579 .2.462 Unknown [id number] 2.840.1.190254.3.579 .2.462 Unknown [id number] 2.840.1.499421.3.579 .2.462 Unknown [id number] 2.840.1.758663.3.579 .2.462 Unknown [id number] 2.840.1.327504.3.579 .2.462 Unknown [id number] 2.840.1.248161.3.579 .2.462 Social History Date Type Detail Facility Tobacco smoking stat [facility] Unknown if ever smoked [facility] Start: 1945 Sex Assigned At Not on file [facility] Start: 12-31-2022 End: 07-22-2024 Denies alcohol consumption Denies alcohol consumption [facility] Start: 01-06-2022 Tobacco smoking stat us NHIS Tobacco smoking consumption unknown [facility] Start: 12-27-2021 End: 01-01-2024 Exposure to SARS-CoV-2 (event) Not sure [facility] Start: 01-28-2022 Tobacco smoking stat us MOIS Never smoked tobacco [facility] Start: 01-28-2022 End: 03-08-2024 Tobacco use and exposure Smokeless tobacco non-user [facility] Start: 01-28-2022 End: 11-30-2023 Alcohol intake Lifetime non-drinker (finding) [facility] Start: 12-31-2022 End: 03-24-2025 Tobacco smoking status NHIS Ex-smoker [facility] Start: 06-29-1973 End: 06-29-1983 History of tobacco use Current smoker [facility] Work Phone: Start: 06-29-1973 End: 06-29-1983 History of tobacco use Cigarette Smoker [facility] Work Phone: Start: 12-31-2022 End: 01-09-2025 Alcohol intake Ex-drinker (finding) [facility] Work Phone: Start: 12-31-2022 End: 07-22-2024 Tobacco use panel [facility] Start: 08-05-2021 Gender identity Identifies as male gender (finding) [facility] Start: 08-05-2021 Sexual orientation Heterosexua l (finding) [facility] Has the [email or web address], or [employer] threatened to shut off services in your home in past 12Mo No [facility] (I/We) worried manuel er (my/our) food would run out before (I/we) got money to buy more. Never true [facility] Start: 11-19-2023 In the past 12 month s, has lack of transportation kept you from medical appointments or from getting medications? No [facility] Are you now , , , , never or living with a partner? [facility] How often to you hav e a drink containing alcohol? Never [facility] How hard is it for y ou to pay for the very basics like food, housing, medical care, and heating Not very hard [facility] Do you feel stress - tense, restless, nervous, or anxious, or unable to sleep at night because your mind is troubled all the time - these days [OSQ] Not at all [facility] Start: 1945 Sex Assigned At Male [facility] NEGATED: Highlighted rowStart: YAJAIRAF History of tobacco use Passive smoker [facility] Work Phone: Medical Equipment Procedure Code Equipment Code Equipment Origin al Text Equipment Identifier Dates [id number], [id number] FDA Start: 10-21-2023 Use to inject 1- 4 times daily as directed. [id number] Start: 01-01-2024 End: 12-31-2024 Goals Date Patient Goal Desired Activity /State Functional Status Date Assessment Result Facility 02-14-2025 Total score [AUDIT-C] 0 02/15/20 8:39 AM EDT William Corbett MA [facility] 01-10-2025 Functional status Activity Abili ty With Assist of [address] [facility] Work Phone: [facility] Mental Status Date Assessment Result Facility 03-24-2025 Cognitive function Level Of Consciousness Awake [facility] Work Phone: 01-10-2025 Cognitive function Voice/Name [facility] Work Phone: 11-24-2024 Cognitive function Level Of Cons ciousness Awake;Alert;Appropriate;Follow s Commands [facility] Work Phone: Clinical Notes 01-22-2021 to 05-02-2025 Note Date & Type Note Facility 05-02-2025 Note [facility] 04-20-2025 Note [facility] 04-11-2025 Note [facility] 03-24-[address] [facility] 03-24-2025 Discharge summary Note Date/Time March 24, 2025 4:28pm [facility] Medical Records Department [address] [place] [address] Emergency Department Summary 03/24/25 MR#: [id number] Acct: [id number] Name: DIPTI SIERRA Rep #:[id number] : 1945 79 From: Afsaneh Goode PCP: Dr. Chaitanya Puri MD Status :DEP ER Location: ED [facility] History of Present Illness Chief Complaint: Other, Pain/Inj Informant: patient and family Narrative Narrative: Patient is a 79-year-old male with history of metastatic colon cancer (stage IV his liver and lungs) he is currently not on any active chemotherapy and waiting to start a new medication. He follows with Dr. Bar. He is presenting today with worsening left sided pleuritic chest pain. States it started rather suddenly around 7 PM last night. He states he feels generally weak and short ofbreath with it. On arrival to the ER patient was 86% on room air and does not wear oxygen normally. He has been having chills for the past few nights and forthe past few weeks has been having some worsening cough. Son states has been worse over the past few days. No fevers reported. Tried to take pain medication (phospho-inge) last night with no relief. Denies any medications today. Denies associate nausea or vomiting, cardiac history, history of DVT or PE or leg swelling. Is not on any oral anticoagulation. States he does have some mild pain in his left upper quadrant but states it is more underneath his ribs. Denies any acute change in his bowel movements . No other complaints or concerns reported acutely at this time. States he does [facility] Medical History Colon cancer metastasized to multiple sites Anemia Pneumonia Sleep apnea Colon cancer GERD (gastroesophageal reflux [...] meq PO BID 01/09/2501/09 History tablet,extended release amoxicillin 875 mg-potassium 1 tab PO Q12H #20 tabs Unknown Rx clavulanate 125 mg tablet hydrocodone-acetaminophen 5-325mg 1 tab PO Q6H PRN PRN Pain 5 days 03/24/25 Unknown Rx 5mg-325mg #20 TABLETS Allergy/AdvReac Type Severity Reaction Status Date / Time lisinopril Allergy Severe Angioedema Verified 03/24/25 08:54 metformin Allergy Upset Verified 03/24/25 08:54 Stomach Surgical History History of ankle surgery History of knee replacement History of appendectomy History of colon resection Social History housing: house Smoking Status: Former smoker ROS ROS ED Constitutional Constitutional ED: Reports chills; Denies fever(s) ENT ENT ED: Denies rhinorrhea or sore throat Cardiovascular Cardiovascular: Reports chest pain; Denies palpitations Respiratory/Chest Respiratory/Chest: Reports cough, dyspnea, dyspnea on exertion and sputum Gastrointestinal Gastrointestinal: Denies abdominal pain, diarrhea, nausea or vomiting Musculoskeletal Musculoskeletal: Denies arthralgias or myalgias Integumentary Denies rash Neurologic Neurologic: Reports weakness; Denies headache(s) or paresthesias Hematologic/Lymphatic Hematologic/Lymphatic: Denies easy bleeding or easy bruising EXAM Physical Exam Const Vital Signs: 03/24/25 15:45 03/24/25 15:56 03/24/25 16:00 Temperature 97.8 F Temperature Source Oral Pulse Rate 75 72 74 Respiratory Rate 20 H 28 H 33 H Blood Pressure 107/64 107/64 94/54 L Blood Pressure Mean 77 78 66 Blood Pressure Source Monitor Blood Pressure Position Semi-Fowlers Blood Pressure Location Left Arm Pulse Ox 99 97 100 Oxygen Delivery Method Room Air 03/24/25 16:15 03/24/25 16:20 Temperature 97.8 F Temperature Source Pulse Rate 77 77 Respiratory Rate 29 H 29 H Blood Pressure 98/55 L 98/55 L Blood Pressure Mean 67 69 Blood Pressure Source Blood Pressure Position Blood Pressure Location Pulse Ox 97 97 Oxygen Delivery Method Positive well nourished and well developed General Appearance ED: well developed and NAD HEENT Reports dry mucous membranes Mouth ED: Yes dry mucous membranes Mouth: dry mucous membranes Eyes PERRL and EOMs intact bilaterally Neck supple and no JVD Chest Wall inspection of chest normal Chest Narrative: No chest wall crepitus. No overlying rash of the chest wall. Mild tense palpation of the left anterior lower ribs and along the costal margin. Resp Resp Narrative: Tachypneic. Mildly coarse of breath sounds on the left side compared to the right with bibasilar crackles present. No absent breath sounds. Cardio regular rate, regular rhythm and no murmurs GI normal to inspection, nondistended, normoactive bowel sounds and non-tender Palpation: soft; Negative for tender or guarding Extremity normal to inspection General Extremety ED: Negative for edema General Extremity: Negative for edema Neuro oriented x3 Sensorium / Orientation: alert Motor Exam: general weakness Psych mental status grossly normal Skin no rashes or lesions noted and no wounds MDM MDM MDM Narrative Medical decision making narrative: Patient is evaluated for worsening shortness of breath left-sided pleuritic pain. Has had chills. Differential includes is not limited to pulmonary emboli, pneumothorax, postobstructive pneumonia, progression of his cancer, pleural effusion, symptomatic anemia, hyponatremia. Chest x-ray obtained to rule out pneumothorax given sudden onset of pleuritic pain and hypoxia. This reviewed by myself and shows extensive pulmonary metastatic disease but no pneumothorax. This is also reviewed by radiology was in agreement. CBC shows a mild leukocytosis of 13.1, his hemoglobin is 6.5 which is similar towhere his hemoglobin was in December of this year. Question we could have some symptomatic anemia however given that he is hypoxic and short of breath more acutely over the past few days. Anemia is likely associated with his cancer. He has a normal BUN and creatinine lower spectrum for upper GI bleeding. Blood glucose is mildly elevated at 309 however his anion gap is normal. He has some mild pseudohyponatremia with a sodium of 129. CTA of the chest shows no PE however there is extensive pulmonary metastatic disease that is worsening from January 2024 as well as bilateral aspiration pneumonia. Patient started on Unasyn. We ordered a unit of blood. Did discusswith the patient's oncologist, Dr. Bar, who states from an oncologic standpoint there is not a whole lot of intervention further for him and he does not need transferred from that standpoint. He does not have a particularly obstructive process from his lung mets. Discussed with the hospitalist for admission with the patient. Initially patient was agreeable however on further consideration patient states he is really go home. He knows that his diagnosis is terminal and is interested in hospice evaluation. He understands if he goes home I cannot arrange for home oxygen today and his oxygen might be low. He states he is likely had low oxygenfor couple days. He is acting appropriate and has capacity to make this decision. I did speak with intake for hospice of [facility] and his information was sent over. I given a phone number which I gave to his to call once he gets home and they will have someone come out tonight for further hospice assistance and evaluation. Patient is agreeable to prescription for pain medication and antibiotics (Augmentin) for pneumonia. Will receive a unit of blood in the emergency room. Counseled that it is possible that he could go into fulminant respiratory distress and have an untimely associated with respiratory failure given that he is already hypoxic. He verbalizes understanding of this. He is encouraged to return to the emergency room should he change his mind about treatment options or hospitalization. Patient, son andwife are all in agreement with this plan of care. Lab Data Attestation: I reviewed the patient's lab results. Labs: Laboratory Results - last 24 hr 03/24/25 11:52 Crossmatch See Detail Radiography Chest X-Ray - ED: 1 View, Read by ED Physician, Read by Radiologist and Chronic Changes Diagnostic Testing: Clinical Impression(s) from Imaging Studies Chest CTA 03/24/25 09:55 IMPRESSION: Negative for pulmonary embolus. Extensive pulmonary metastatic disease mildly worse compared to January 2024. Suspect interval development of bilateral aspiration pneumonia. Hepatic metastatic disease. No definitive bony metastatic disease Reading Location: [facility] Chest X-Ray 03/24/25 10:30 IMPRESSION: Extensive pulmonary metastatic disease Small left-sided pleural effusion. Reading Location: [facility] Rhythm Strip Rate: 83 Ectopy: None EKG Initial EKG: Attestation: I personally reviewed and interpreted this EKG as follows: Interpretation: Sinus Rhythm Comments: Normal sinus rhythm at a rate of 83 bpm Normal axis Normal intervals Normal ST segments Management Discussion w/another healthcare provider: Hospitalist and [employer] Discharge Plan Triage Chief Complaint: Other, Pain/Inj ED Provider: Afsaneh Olson Dx/Rx/DC Orders Clinical Impression: Metastatic colon cancer to liver, Metastatic cancer to lung, Aspiration pneumonia, Anemia, Hypoxia Prescriptions: New amoxicillin-pot clavulanate 875-125 mg tablet 1 tab PO Q12H Qty: 20 0RF hydrocodone-acetaminophen 5-325 mg tablet 1 tab PO Q6H PRN PRN (Reason: Pain) 5 Days Qty: 20 0RF No Action omeprazole 40 mg Capsule,Delayed Release(Dr/Ec) 40 mg PO DAILY aspirin 81 mg Tablet,Delayed Release (Dr/Ec) 81 mg [...] Puri Referrals: Chaitanya Puri MD [Primary Care Provider, Family Practice] Activity Restrictions/Additional Instructions: You received a unit of blood today. You have been prescribed antibiotics for aspiration pneumonia. Please contact hospice [facility] referral line when you get home (call them immediately) and they will send hospice nurse out to your house for further assistance and evaluation later tonight or soon as possible. If it anytime you feel your breathing is worsening, you change your mind or you have further concerns please do not hesitate to return to the emergency room. We did initially plan on admission to the hospital for supplemental oxygen, paincontrol, blood transfusion and treatment of aspiration pneumonia however due to your advanced cancer and desire to be at home it was ultimately decided to go home tonight. There is a risk given your low oxygen with this however you are welcome back to the ER if you feel that you are worsening or change her mind. Print Language: [place] Disposition Disposition: Home, Self Care Discharge Date/Time: 03/24/25 16:28 What to do if you have Problems For any increased pain, shortness of breath, bleeding, nausea or vomiting, chestpain, or any unexpected problems, contact your Primary Care Provider. Call [facility] ([phone]) or report to the closest Emergency Room. Call 911 if necessary. 03/25/25 1530 <Electronically signed by Afsaneh Olson DO> Cosigner Signature (if applicable): CC: Dr. Chaitanya Puri MD ~ Signed [facility] Work Phone: 1(785) 510-530209-26-2025 Radiology Diagnostic study note [facility] Imaging Services [address] [place] [address] CTA Chest W/WO Contrast MR#: [id number] Acct: [id number] Name: DIPTI SIERRA Rep #: [id number] : [id number] M 79 From: Jannie Martinez MD PCP: Dr. Chaitanya Puri MD Status: REG ER Study:CTA Chest W/WO Contrast Date of Exam: 03/24/25 Exam# [id number] Ordering Dr: Mainor Olson DO PROCEDURE: CTA CHEST W/WO CONTRAST 03/24/2025 REASON FOR EXAM: HYPOXIA, PLEURITIC CHEST PAIN , HX OF CANCER Pulmonary metastatic disease. TECHNIQUE: Procedure Code: [id number] Modality: CT Procedure: CTA CHEST W/WO CONTRAST Multiplanar Sagittal and Coronal images were obtained. 3D post processing was performed CONTRAST: Isovue 370 VOLUME: 100 mL One or more dose reduction techniques were used (e.g., Automated exposure control, adjustment of the mA and/or kV according to patient size, use of iterative reconstruction technique). RADIATION DOSE SUMMARY: CTDlvol: 17 mGy DLP: 450.3 MGycm COMPARISON: CT abdomen January 2024. # of known CTs in the past 12 months: 1 # of known Cardiac Nuclear Medicine Studies in the past 12 months: 0 FINDINGS: Thyroid gland: Negative. Lungs: Extensive bilateral pulmonary masses largest on the right is in the rightmiddle lobe and measures 5.6 by 4.8 cm. Largest in the left is in the left lung base and measures at least 6 by 7 cm. This massis increased in sizeand overall suspect metastatic disease has moderately worsened since January 2024. Additionally thereis hyperdense material in the right lower lobe consider concerning for aspiration pneumonia with similar disease on the left. Therefore suspect patient has both worsening metastatic disease and developing bilateral aspiration pneumonia. Pleura: Negative for pleural effusion or pneumothorax. Airways: Imaged bronchi and trachea otherwisenegative. Mediastinum: Right azygous esophageal recess adenopathy measures 2.7 by 1.6 cm. Negative for mediastinal mass. Lymph nodes: Azygous esophageal recess adenopathy. Mild left hilar adenopathy. No axillary adenopathy. Heart and Vasculature: Pulmonary arteries well opacify with intravenous contrast. Negative for intraluminal thrombus. Heart normal size. Negative for vascular calcifications of the thoracic aorta. Coronary Artery Calcifications: Slight vascular calcifications of the coronary arteries Upper Abdomen: Probable hepatic metastatic disease with poorly defined lesion inthe right lobe of liver measuring at least 5 cm. Hardware: None. Bones: No bony metastatic disease. Mild compression fractures lower thoracic spine, old. Age-appropriate degenerative changes of the thoracic spine. CT/CTA Chest W/WO Contrast IMPRESSION: Negative for pulmonary embolus. Extensive pulmonary metastatic disease mildly worse compared to January 2024. Suspect interval development of bilateral aspiration pneumonia. Hepatic metastatic disease. No definitive bony metastatic disease Reading Location: [facility] CC: Dr. Chaitanya Puri MD; Dr. Afsaneh Olson DO ~ Zoning Assistant: Signed [facility]09-26-2025 Radiology Diagnostic study note [facility] Imaging Services [address] [place], [place] [id number] Chest 1 View (Portable) MR#: [id number] Acct: [id number] Name: DIPTI SIERRA Rep #: [id number] : 1945 M [id number] From: Jannie Martinez MD PCP: Dr. Chaitanya Puri MD Status: REG ER Study:Chest 1 View (Portable) Date of Exam: 03/24/25 Exam# [id number] Ordering Dr: Mainor Olson DO PROCEDURE: CHEST 1 VIEW (PORTABLE) 03/24/2025 REASON FOR EXAM: LEFT SIDED CHEEST PAIN TECHNIQUE: Frontal view of the chest. COMPARISON: December 2024. FINDINGS: Hardware and support lines: Left-sided Port-A-Cath. Heart: Negative. Lungs: Numerous bilateral pulmonary masses relatively stable. Pleura: No pleural thickening. Minimal left-sided pleural fluid. Mediastinum and aorta: Negative for hilar adenopathy. Mildly tortuous thoracic aorta. Bones: Mild degenerative changes of the shoulders. Age-appropriate degenerativechanges of the spine. Other: Remainder of the exam negative. RAD/Chest 1 View (Portable) IMPRESSION: Extensive pulmonary metastatic disease Small left-sided pleural effusion. Reading Location: [id number] CC: Dr. Chaitanya Puri MD; Dr. Afsaneh Olson, DO ~ Zoning Assistant: Signed [facility]08-19-2025 History of Present illness Narrative* Rodney Ram - 02/14/2025 5:11 PM EDT [facility] received prescription(s) for Lonsurf from Dr. Bar's office. Benefits investigation was conducted, indicating that a prior authorization is required by patient's insurance plan with [employer]. Encounter will be updated once prior authorization has been submitted by [facility]. Rodney Ram CPhT [facility], Oncology P: / F: documented in this encounterHolmes [facility]08-[facility]-20[facility]25 Note [facility] Telephone encounter Note* Telephone Encounter - Jackie Noyola RN - 02/14/2025 9:41 AM EDT Patient was given a folder with oral chemo information on Lonsurf, he has received Avastin previously and denied needing information. Melvi Noyola RN [facility] Work Phone: 1(940) 380-458408-19-2025 Miscellaneous Notes* Telephone Encounter - Jackie Noyola RN - 02/14/2025 9:41 AM EDT Patient was given a folder with oral chemo information on Lonsurf, he has received Avastin previously and denied needing information. Melvi Noyola RN documented in this encounterHolmes [facility]08-19-2025 NoteOur [facility]08-[facility]-2025 History of Present illness Narrative* Aarti Bar DO - 02/14/2025 9:12 AM EDT Oncologic problem(s): 1) Metastatic adenocarcinoma of the cecum. HPI: The patient is a 79-year-old male with a past medical history as outlined below. Had a colonoscopy in 2019 during which evidently showed one polyp. Had about 2 year history right abdominal pain. Insomnia. Had work up [facility] 02/2022. Admitted to [facility] in September 2023 with hemoglobin of 5.5 [...] PTCA/Stent; Surgeon: Baljinder Banegas MD; Location: [facility] REPORTING DEVELOPER; Service: Cardiovascular CARDIAC CATHETERIZATION N/A 02/10/2022 Procedure: Coronary Angiogram; Surgeon: Baljinder Banegas MD; Location: [facility] ANALYSIS REPORTING DEVELOPER; Service: Cardiovascular CARDIAC CATHETERIZATION N/A 02/10/2022 Procedure: Instant Wave Free Ratio; Surgeon: Baljinder Banegas MD; Location: [facility] ANALYSIS REPORTING DEVELOPER; Service: Cardiovascular CARDIAC CATHETERIZATION N/A 02/10/2022 Procedure: Fractional Flow Warren; Surgeon: Baljinder Banegas MD; Location: [facility] ANALYSIS REPORTING DEVELOPER; Service: Cardiovascular COLONOSCOPY N/A 10/20/2023 Procedure: COLONOSCOPY with biopsy; Surgeon: Joe Rojas MD; Location: [facility]; Service: Gastroenterology CT COLONOSCOPY 03/01/[address] COLONOSCOPY 07/16/2018 CT COLONOSCOPY EGD N/A 10/20/2023 Procedure: ESOPHAGOGASTRODUODENOSCOPY; Surgeon: Joe Rojas MD; Location: [facility]; Service: Gastroenterology INSERTION SUBCUTANEOUS PORT N/A 10/21/2023 Procedure: INSERTION SUBCUTANEOUS PORT; Surgeon: Austen Hall MD; Location: Main OR; Service: [employer] KNEE ARTHROPLASTY Right 1999 DE LAPS COLECTOMY PRTL W/RMVL TERMINAL ILEUM Right [...] had breast cancer and at age 55 Previous therapy: 1) FOLFOX with meli. Following cycle [...] and has not had any nausea since. Current therapy: 1 FOLFIRI with bevacizumab. Developed severe nausea, vomiting and diarrhea despite dose reduction of irinotecan. Presents for ongoing oncologic management. Interim history: Feeling somewhat better. No nausea now. No further diarrhea. No abdominal pain. Appetite still problematic due to altered taste. Salty and sweet foods seem to agree with him best. ROS: Constitutional: No fever. No drenching night [...] Normal mood. PHYSICAL EXAM: Vitals: Blood pressure 102/62, pulse 98, temperature 36.2 C (97.1 F), temperature source Temporal, weight 74.4 kg (164 lb), SpO2 92%. Fatigued-appearing and in no acute distress. EYES: Sclerae are anicteric bilaterally. LYMPHATIC: There is no palpable cervical, supraclavicular adenopathy. CARDIOVASCULAR: Rhythm is regular. ABDOMEN: The abdomen is nondistended. SKIN: No jaundice. LABS: NGS/biomarkers/dinkey driver mutation analyses: pMRR. KRAS mutation. UGT1A1 intermediate metabolizer. 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 -ECOG PS is 2 currently. -Comorbid conditions: DM2 (no baseline neuropathy), hypertension, hyperlipidemia and BRYCE. -History of iron deficiency received parenteral iron. - Intolerant to irinotecan. -Personally reviewed CT images. Obvious progression of disease in the lungs and liver. Waiting official radiology report. - Has had further recovery. Discussed options of no treatment or Lonsurf and bevacizumab. After a balanced discussion of these options, he will try Lonsurf/meli. Plan: -Rx Lonsurf. -Will begin when receives drug. -Continue monitoring CEA. -Monitor urine monthly for proteinuria. Portions of this documentation were copied and pasted from my previous office visit note dated 01/17/2025 in order to provide a cohesive continuity of the history. The note has been reviewed and edited and updated as necessary. Aarti Bar DO documented in this encounterHolmes County [facility]08-12-2025 History of Present illness Narrative* Luisito Carbajal RT(R) - 02/07/2025 10:00 AM EDT Radiology Service Progress Note PATIENT NAME: Dipti Sierra DATE OF SERVICE: February 07, 2025 TIME: 1:48 PM PATIENT IDENTITY VERIFICATION COMPLETED USING TWO [...] PATIENT PRESENTS WITH AN IMPLANTABLE OR ATTACHED GEOSPATIAL DEVELOPER: No RADIOLOGY DEPARTMENT: CT; Exam(s) Completed: Chest Abdomen Pelvis PERIPHERAL IV DATA: power port accessed by [employer] SIGNED BY: RT Rosaura(R) February 07, 2025 1:48 PM documented in this encounterHolmes County [facility]08-12-2025 NoteOur [facility]08-11-2025 Telephone encounter Note* Telephone Encounter - Elaine Gallego - 02/06/2025 2:17 PM EDT This has been scheduled. Elaine Gallego [facility]08-11-2025 Miscellaneous Notes* Telephone Encounter - Elaine Gallego - 02/06/2025 2:17 PM EDT This has been scheduled. Elaine Gallego * Telephone Encounter - Sharri Vallejo PSS - 02/06/2025 1:40 PM EDT Pt would like to use port for appt on 02/07/[address] Prep at 9 scan at 10.. documented in this encounterHolmes County [facility]08-11-2025 Telephone encounter Note * Telephone Encounter - Sharri Vallejo PSS - 02/06/2025 1:40 PM EDT Pt would like to use port for appt on 02/07/[address] Prep at 9 scan at 10.. [facility]07-24-2025 Telephone encounter Note* Telephone Encounter - Dayami Puri MD - 01/19/2025 10:42 AM EDT Reviewed. [facility]07-24-2025 Miscellaneous Notes* Telephone Encounter - Dayami Puri MD - 01/19/2025 10:42 AM EDT Reviewed. * Telephone Encounter - Justyna Delcid LPN - 01/19/2025 10:17 AM EDT FYFatemeh Delcid LPN * Telephone Encounter - Italia Flores - 01/19/2025 9:39 AM EDT Spoke with spouse in regards to consult to Hospice and palliative care, as Palliative spoke with patient on 01/12/25 and he declined their services at that time, Dionne the spouse also confirmed this on phone, they are fine for now and will address this at a later time. documented in this encounterHolmes County [facility]07-24-2025 Telephone encounter Note * Telephone Encounter - Justyna Delcid LPN - 01/19/2025 10:17 AM EDT FYI. Justyna Delcid LPN [facility]07-24-2025 Telephone encounter Note* Telephone Encounter - Italia Flores - 01/19/2025 9:39 AM EDT Spoke with spouse in regards to consult to Hospice and palliative care, as Palliative spoke with patient on 01/12/25 and he declined their services at that time, Dionne the spouse also confirmed this on phone, they are fine for now and will address this at a later time. [facility]07-23-2025 Telephone encounter Note* Telephone Encounter - Bhavna Pritchett - 01/18/2025 8:44 AM EDT Scheduled with patient [facility] Work Phone: 1(749) 636-871707-23-2025 Miscellaneous Notes* Telephone Encounter - Bhavna Pritchett - 01/18/2025 8:44 AM EDT Scheduled with patient * Telephone Encounter - Sally Caldera - 01/17/2025 1:59 PM EDT Called patient and left a vm to return our call * Telephone Encounter - Bhavna Pritchett - 01/17/2025 12:34 PM EDT 01/17 AVS Rose BAR Check out comments: Labs today. CT C/A/P then OV in the next few weeks. documented in this encounterHolmes County [facility]07-22-2025 Telephone encounter Note * Telephone Encounter - Sally Caldera - 01/17/2025 1:59 PM EDT Called patient and left a vm to return our call [facility]07-22-2025 Telephone encounter Note* Telephone Encounter - Bhavna Pritchett - 01/17/2025 12:34 PM EDT 01/17 AVBeverly BAR Check out comments: Labs today. CT C/A/P then OV in the next few weeks. [facility]07-22-2025 NoteOur [facility]07-22-2025 History of Present illness Narrative* Aarti Bar DO - 01/17/2025 10:03 AM EDT Oncologic problem(s): 1) Metastatic adenocarcinoma of the cecum. HPI: The patient is a 79-year-old male with a past medical history as outlined below. Had a colonoscopy in 2019 during which evidently showed one polyp. Had about 2 year history right abdominal pain. Insomnia. Had work up [facility] 02/2022. Admitted to [facility] in September 2023 with hemoglobin of 5.5 [...] Possbile PTCA/Stent; Surgeon: Baljinder Banegas MD; Location: [facility] ANALYSIS REPORTING DEVELOPER; Service: Cardiovascular CARDIAC CATHETERIZATION N/A 02/10/2022 Procedure: Coronary Angiogram; Surgeon: Baljinder Banegas MD; Location: [facility] ANALYSIS REPORTING DEVELOPER; Service: Cardiovascular CARDIAC CATHETERIZATION N/A 02/10/2022 Procedure: Instant Wave Free Ratio; Surgeon: Baljinder Banegas MD; Location: [facility] ANALYSIS REPORTING DEVELOPER; Service: Cardiovascular CARDIAC CATHETERIZATION N/A 02/10/2022 Procedure: Fractional Flow Warren; Surgeon: Baljinder Banegas MD; Location: [facility] ANALYSIS REPORTING DEVELOPER; Service: Cardiovascular COLONOSCOPY N/A 10/20/2023 Procedure: COLONOSCOPY with biopsy; Surgeon: Joe Rojas MD; Location: Endo; Service: Gastroenterology CT COLONOSCOPY 03/01/[address] COLONOSCOPY 07/16/2018 CT COLONOSCOPY EGD N/A 10/20/2023 Procedure: ESOPHAGOGASTRODUODENOSCOPY; Surgeon: Joe Rojas MD; Location: Endo; Service: Gastroenterology INSERTION SUBCUTANEOUS PORT N/A 10/21/2023 Procedure: INSERTION SUBCUTANEOUS PORT; Surgeon: Austen Hall MD; Location: Main OR; Service: [employer] KNEE ARTHROPLASTY Right 1999 DE LAPS COLECTOMY PRTL W/RMVL TERMINAL ILEUM Right [...] had breast cancer and at age 55 Previous therapy: 1) FOLFOX with meli. Following cycle [...] and has not had any nausea since. Current therapy: 1 FOLFIRI with bevacizumab. Presents for ongoing oncologic management. Interim history: Developed severe nausea, vomiting and diarrhea despite dose reduction of irinotecan. Recovering, but appetite still low. Smell of certain foods can make him sick. Seems to be recovering taste for other foods since having Covid. No nausea now. No further diarrhea. No abdominal pain. ROS: Constitutional: No fever. No drenching night [...] Normal mood. PHYSICAL EXAM: Vitals: Blood pressure 109/70, pulse 104, temperature 36.4 C (97.6 F), temperature source Temporal,weight 74.8 kg (165 lb), SpO2 96%. Fatigued-appearing and in no acute distress. EYES: Sclerae are anicteric bilaterally. LYMPHATIC: There is no palpable cervical, supraclavicular adenopathy. CARDIOVASCULAR: Rhythm is regular. ABDOMEN: The abdomen is nondistended. SKIN: No jaundice. LABS: NGS/biomarkers/dinkey driver mutation analyses: pMRR. KRAS mutation. UGT1A1 intermediate metabolizer. 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 -ECOG PS is 2 currently. -Comorbid conditions: DM2 (no baseline neuropathy), hypertension, hyperlipidemia and BRYCE. -History of iron deficiency received parenteral iron. - Intolerant to irinotecan. - He is still recovering so we discussed plan to obtain imaging without p.o. contrast since it madehim very ill last time. Repeat lab work today. As he recovers some more strength and taste for foods, rotate treatment to Lonsurf and bevacizumab. Plan: -CT chest, abdomen pelvis without p.o. contrast but with IV contrast. -Continue monitoring CEA. -Monitor urine monthly for proteinuria. -Continue oral potassium replacement and Slow-Mag 1 tablet daily. - CBC, chemistry panel, iron and CEA today. - Office visit in several weeks to review CTs and assess for appropriateness of proceeding with therapy at that point. Portions of this documentation were copied and pasted from my previous office visit note dated 11/09/2024 in order to provide a cohesive continuity of the history. The note has been reviewed and edited and updated as necessary. I spent a total of 30 minutes on the date of the service which included preparing to see the patient, [id number] patient care, completing clinical documentation, obtaining and/or reviewing separately obtained history, performing a medically appropriate examination, counseling and educating the pat ient/family/caregiver, ordering medications, tests, or procedures, communicating with other HCPs (not separately reported), and communicating results to the patient/family/caregiver. 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 Patient/authorized sales representative livestock agreed to proceed SUBJECTIVE: This is a 79 year old that is here today for Above Complaints. Pneumonia: - Hospitalized last week for pneumonia and high WBC count; stayed overnight. - Received IV antibiotics and was discharged on Levaquin, which he is tolerating well. - Denies fevers, chills, dyspnea, or chest pain. Anemia: - History of low hemoglobin levels, with a recorded level of 5.3 g/dL. - Received a blood transfusion during recent hospitalization. - No further workup for anemia desired. Colon Cancer: - Diagnosed after a 2.5-inch tumor was removed from the colon, which had metastasized to the liver and lungs. - Had two previous colonoscopies; tumor grew where a non-cancerous polyp was previously removed. - Initially treated with FOLFOX, then switched to FOLFIRI due to new liver tumors. - Experienced severe side effects from FOLFIRI, including emesis, diarrhea, anorexia, and a 10 lb weight loss. - Decided to discontinue chemotherapy due to side effects. - Currently has no pain and is able to engage in hobbies. - Awaiting a call back from hospice for palliative care. Follow-Up Care: - Scheduled to see Dr. Bar, oncologist, tomorrow. - Blood work planned in a month. Hospital record reviewed PAST MEDICAL HISTORY Diagnosis Date Cancer of [...] BRYCE (obstructive sleep apnea) Dr. Mckenzie in [place]. On CPAP ALLERGIES Lisinopril and Metformin MEDICATIONS Current Outpatient Medications Medication Sig rosuvastatin (CRESTOR) 10 mg tablet Take 1 tablet by mouth once daily. omeprazole (PRILOSEC) 40 mg capsule Take 1 capsule by mouth once daily. amoxicillin-clavulanate potassium (AUGMENTIN) 875-125 mg per tablet Take 1 tablet by mouth every 12hours for 7 days. mirtazapine (REMERON) 15 mg tablet Take 1 tablet by mouth daily at bedtime. diphenoxylate-atropine (LOMOTIL) 2.5-0.025 mg per tablet Take 2 tablets by mouth every 6 hours as needed for diarrhea for up to 7 days. acyclovir (ZOVIRAX) 400 mg tablet Take 1 tablet by mouth two times a day. phosphorus (D-NGOT-NIZDRQZ) 250 mg tablet Take 1 tablet by [...] Contrast as designated per enteric contrast guidelines potassium chloride (K-TAB) 10 mEq tablet Take [...] No current facility-administered medications for this visit. Medications and allergies reviewed by this provider. SOCIAL HISTORY Social History Tobacco Use Smoking status: Former Current packs/day: 0.00 Average packs/day: 0.5 packs/day for 10.0 years (5.0 ttl pk-yrs) Types: Cigarettes Start date: 1973 Quit date: 1983 Years since quittin.5 Smokeless tobacco: Never Vaping Use Vaping status: Never Used Substance Use Topics Alcohol use: Not Currently Drug use: Never REVIEW OF SYSTEMS All other reviewed and negative other than HPI. OBJECTIVE: BP 126/62 Pulse 109 Wt 74.4 kg (164 lb) SpO2 94% BMI 29.05 kg/m . Vital signs reviewed by this provider. GENERAL: NAD, alert and oriented. SKIN: Unremarkable, no rash or skin lesions to exposed skin EYES: conjunctiva clear LUNGS: Clear to auscultation bilaterally, no wheezes/rhonchi/rales. HEART: Regular rate and rhythm, no murmurs. No ectopy. Diabetic Foot Exam Never done Depression Screening [...] C Screening Completed Pneumococcal Vaccine: 50+ Completed 1. Hospital discharge follow-up (Z09) 2. 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 Pneumonia due to infectious organism, unspecified laterality, unspecified part of lung (J18.9) - Recent hospitalization for pneumonia and severe anemia; received IV antibiotics and a blood transfusion. - Currently on Levaquin, tolerating well without gastrointestinal side effects, fevers, or dyspnea. - Hemoglobin levels have been consistently low; no further workup for anemia desired by patient. - History of metastatic colon cancer with liver and lung involvement; previous chemotherapy regimens FOLFOX and FOLFIRI discontinued due to adverse effects and disease progression. - Hospice care initiation in progress; awaiting callback. - Follow-up with Dr. Bar scheduled for tomorrow; blood work planned in one month to monitor hemoglobin levels. 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 Patient advised if symptoms do not improve or if symptoms worsen sooner, to contact their primary care physician. Potential red flag symptoms discussed with the patient. Reviewed appropriate action plan to take if red flag symptoms occur. Patient agreeable to treatment plan. Medical Decision Making: Problems: Moderate: Acute illness with systemic symptoms High: Chronic illness with severe change Risk: Moderate: Moderate risk from testing/treatment High: Drug therapy requiring intensive monitoring Medical Decision Making Level: 5 - High documented in [facility]Hol[facility] Telephone encounter Note * Telephone Encounter - Carola Walton - 01/12/2025 11:16 AM EDT Spoke with Dipti and he stated at this time he does not want to schedule with palliiative care. He had an initial consultation with Palliaitive care on 06/14/24. He declined further appointments at that time and will call us back if at some point he wants to schedule [facility]07-17-2025 Miscellaneous Notes* Telephone Encounter - Carola Walton - 01/12/2025 11:16 AM EDT Spoke with Dipti and he stated at this time he does not want to schedule with palliiative care. He had an initial consultation with Palliaitive care on 06/14/24. He declined further appointments at that time and will call us back if at some point he wants to schedule * Telephone Encounter - Carola Walton - 01/12/2025 10:52 AM EDT Referring provider:Dr. Dayami Puri Primary diagnosis or reason being seen: Nausea and vomiting, unspecified vomiting type [R11.2] Diarrhea, unspecified type [R19.7] SOB (shortness of breath) [R06.02] Colon cancer metastasized to lung (HCC) [C18.9, C78.00] Has patient been seen by inpatient provider? Yes patient had an initial consult with Isabella Hassan on 06/14/24 1.vv 2.clinic documented in [facility] Telephone encounter Note * Telephone Encounter - Carola Walton - 01/12/2025 10:52 AM EDT Referring provider:Dr. Dayami Puri Primary diagnosis or reason being seen: Nausea and vomiting, unspecified vomiting type [R11.2] Diarrhea, unspecified type [R19.7] SOB (shortness of breath) [R06.02] Colon cancer metastasized to lung (HCC) [C18.9, C78.00] Has patient been seen by inpatient provider? Yes patient had an initial consult with Isabella Hassan on 06/14/24 1.vv 2.clinic [facility]07-15-2025 Discharge summary Author Lencho Ty [facility] Note Date/Time January 10, 2025 8:03 am [facility] Medical Records Department [address] [place] [address] Instructions for Home/Discharge Instructions 01/10/25 0800 MR#: [id number] Acct: [id number] Name: DIPTI SIERRA Rep #:[id number] : 1945 79 From: Lencho Ty DO PCP: Dr. Chaitanya Puri MD Status :ADM IN Discharge Instructions DC O2, CPAP, BIPAP needs Home O2 Discharge instructions: No Dressing / Incision Discharge Activity: Return to Normal Activity Weight Bearing Status: Full weight bearing Follow Up Care Test Results: Test results from this visit will be discussed in further detail at your follow- up appointment, if applicable. Discharge Plan Admission Admit Date/Time: 01/09/25 16:35 Primary Reason for Your Visit: anemia, pneumonia Attending Provider: Lencho Ty Primary Care Provider: Chaitanya Puri Consulting Providers: Darin Younger; Cesar Adair; Kalin Cobos; Gordo Chaves; Polo Nguyen; Barrett Brink; Fab Zarate; Ketty Napoles; Parminder Carroll; Socrates Christensen; Marco Antonio Churchill; Angela Ann; Sindhu Banks; Nicky Zavala; Lex Barillas; Bj Fisher; Kyle Siddiqi; Eddie Acosta; Felipa Christianson; Jam Lewis; Richy Sales; Nile Levy; Wisam Fermin; Srinivasan Baker Discharge Orders/Prescriptions Prescriptions: Continued omeprazole 40 mg Capsule,Delayed Release(Dr/Ec) 40 mg PO DAILY aspirin 81 mg Tablet,Delayed Release (Dr/Ec) 81 mg [...] TAKE 1 TABLET BY MOUTH AT BEDTIME Referrals / Follow Up: Chaitanya Puri MD [Primary Care Provider] - Aarti Bar DO [Med Staff - Active Staff] - See Referral Note (As scheduled) Disposition Disposition (needs filled in before D/C Order can be placed): Home, Self Care 01/10/25 0803<Electronically signed by Lencho Ty DO>Lencho Ty DO CC: Dr. Cesar Adair MD; Dr. Darin Younger MD; Dr. Kalin Cobos MD; Dr. Chaitanya Puri MD; Dr. Polo Nguyen MD; Dr. Gordo Chaves DO; Dr. Barrett Brink MD; Dr. Fab Zarate MD; Dr. Parminder Carroll MD; Dr. Socrates Christensen MD; Dr. Marco Antonio Churchill MD; Dr. Angela Ann MD; Dr. Sindhu Banks MD; Dr. Nicky Zavala MD; Dr. Bj Fisher MD; Dr. Srinivasan Baker MD; Dr. Lex Barillas MD;Dr. Kyle Siddiqi MD; Dr. Jam Lewis MD; Dr. Felipa Christianson MD; Dr. Eddie Acosta DO; Dr. Richy Sales DO; Dr. Nile Levy MD; Dr. Wisam Fermin MD; Dr. Ketty Napoles MD ~ Signed [facility] Work Phone: 1(420) 586-442507-15-2025 Consult note Author Gordo Chaves [facility] Note Date/Time January 10, 2025 7:53 am [facility] Medical Records Department [address] [place] [address] Consultation - Journeyman Molder 01/10/25 0653 MR#: [id number] Acct: [id number] Name: DIPTI SIERRA Rep #:[id number] : 1945 79 From: Gordo Chaves DO PCP: Dr. Chaitanya Puri MD Status :ADM IN Location: ICU ICU08-1 Assessment & Plan Assessment/Plan (1) Anemia: PLAN: Plan RECOMMENDATIONS: 1. Transfuse 1 additional unit of packed red blood cells. 2. Transition to Levaquin to complete 7 days of therapy. 3. No additional intervention or workup, per patient request. 4. CODE STATUS has been updated based upon discussion with the patient. 5. Outpatient follow-up with hospice care services next week. 6. Will sign off from a critical care perspective. IMPRESSIONS: 1. Shortness of breath Most likely secondary to presenting anemia with questionable pneumonia on chest imaging. I do not feel that the patient is septic. I do believe that his hypotension was likely the consequence of volume depletion and anemia. The patient understands that he has an incurable disease in the form of metastatic colon cancer, and at this time, does not wish to pursue any additional intervention or workup. The patient is agreeable to receiving 1 additional unitof packed red blood cells, after which time, he is requesting to be discharged home. The patient indicated that he is scheduled to be seen by palliative/hospice care services next week. From my perspective, the patient can be transitioned to Levaquin to complete 7 days of therapy. 2. History of anemia/metastatic colon cancer/diabetes mellitus/GERD/obstructivesleep apnea Complicates care, management, recovery and prognosis. Continue supportive measures as noted above. CODE STATUS to be updated to DNR comfort care, per patient request. The patient is requesting discharge home today and does not want any additional workup or intervention at this time. This note was generated with Viddseeation software. It may contain incorrectwords, spelling, and punctuation that were not noted in checking the note beforesigning. HPI Consult Data Date of Consult: 01/10/25 HPI Narrative Reason for Consultation: Anemia HPI Narrative: The patient is a 79-year-old male, with a history as outlined below, who presented to the emergency department on January 09 with shortness of breath. The patient had been referred to the emergency department for evaluation by his primary care provider over concerns for underlying pneumonia. The patient has aknown history of metastatic colon cancer, which was previously being treated with chemotherapy under the discretion of Dr. Bar of oncology. However, due to the advanced nature of his disease, coupled with the side effects of the chemotherapy, the patient decided to discontinue therapy approximately 3 weeks ago. He does report an associated cough that has been productive of clear sputum. On presentation to the emergency department, the patient was documented to be afebrile and hemodynamically stable. Laboratory evaluation revealed a white blood cell count of 13,000 with a hemoglobin of 5.9 g/dL. Coagulation profile was notable for an INR of 1.3. Chemistry profile was unremarkable. Lactate waswithin normal limits. Total bilirubin was normal. Urine analysis was unremarkable. Chest x-ray was notable for pulmonary metastatic disease with questionable left lower lobe infiltrate. The patient was subsequently placed onantimicrobials and IV fluids. The patient was transfused 1 unit of packed red blood cells. Overnight, the patient has remained hemodynamically stable. This morning, the patient was still noted to be anemic with a hemoglobin of 6.3 g/dL. Stool for occult blood was negative. I did have a very murray discussion with the patient this morning regarding his CODE STATUS and overall goals of care. He indicated to me that he is scheduled to be seen by hospice care services next week. He isnot currently interested in pursuing any additional intervention or workup. He understands that he has an underlying incurable disease and indicated that his goal to be discharged home today. He indicated that he is okay with receiving 1more unit of packed red blood cells, but then would like to be discharged afterwards. Ultimately, the patient's wishes are to be made comfort care. [facility] Medical History Sleep apnea Colon [...] house Smoking Status: Former smoker ROS ROS Narrative 10 systems were reviewed with pertinent positives as noted in the HPI above. Physical Exam Const alert, oriented x3 and no apparent distress General Appearance: cooperative HEENT normocephalic, head/scalp atraumatic and moist oral mucous membranes Eyes PERRL, EOMs intact bilaterally and conjunctivae normal Neck supple General: trachea midline Chest inspection of chest normal Resp normal respiratory effort Auscultation: Negative for rales, rhonchi or wheezes Cardio regular rate and regular rhythm GI normal to inspection, nondistended, normoactive bowel sounds Extremity no clubbing, cyanosis or edema Skin no rashes or lesions noted Neuro CN's II-XII intact bilaterally, moves all extremities and no focal motor deficits Psych cooperative and affect normal Lab / Micro Data 01/10/25 05:30 01/10/25 05:30 Labs: Laboratory Results - last 24 hr 01/09/25 14:08: WBC 13.7 H, RBC 2.19 L, Hgb 5.9 L*, Hct 19.8 L, MCV 90.4, MCH 26.9 L, MCHC 29.8 L, RDW Std Deviation 69.5 H, RDW Coeff of Micky 21.6 H, Plt Count 280, MPV 9.8, Immature Gran % (Auto) 1.200 H, Neut % (Auto) 87.1 H, Lymph % (Auto) 6.0 L, Nicollet % (Auto) 5.3, Eos % (Auto) 0.1, Baso % (Auto) 0.3, AbsoluteNeuts (auto) 11.9 H, Absolute Lymphs (auto) 0.82 L, Nucleated RBC % 0, Differential Comment SCANNED, Platelet Estimate ADEQUATE, Polychromasia 1+, Hypochromasia 2+, Anisocytosis 2+, PT 16.4 H, INR 1.3, APTT 39.6 H, Sodium 133, Potassium 3.6, Chloride 96 L, Carbon Dioxide 26.0, Anion Gap 11, BUN 19, Creatinine 1.05, Estim Creat Clear Calc 55.08, Est GFR (MDRD) Non-Af 73, BUN/Creatinine Ratio 17.7, Glucose 177 H, Lactic Acid 1.4, Calcium 8.5, Magnesium 2.2, Total Bilirubin 0.93, AST 29, ALT 14, Alkaline Phosphatase 130 H,Total Creatine Kinase 24, Total Protein 7.5, Albumin 2.4 L, Globulin 5.1 H, Albumin/Globulin Ratio 0.5 L 01/09/25 17:30: MRSA (PCR) Negative 01/09/25 18:50: Blood Type O POSITIVE, Antibody Screen NEGATIVE, Crossmatch See Detail 01/10/25 02:00: Urine Color Yellow, Urine Clarity Clear, Urine pH 6.0, Ur Specific [place] 1.010, Urine Protein 15 H, Urine Glucose (UA) Normal, Urine Ketones Negative, Urine Occult Blood Negative, Urine Nitrite Negative, Urine Bilirubin Negative, Urine Urobilinogen 4 H, Ur Leukocyte Esterase Negative, Urine RBC 0 SEEN, Urine WBC 0 SEEN, Ur Squamous Epith Cells 0-5 SEEN, Urine Bacteria 1+, Urine Mucus 0 SEEN 01/10/25 05:30: WBC 13.8 H, RBC 2.30 L, Hgb 6.3 L, Hct 20.8 L, MCV 90.4, MCH 27.4, MCHC 30.3 L, RDW Std Deviation 67.3 H, RDW Coeff of Micky 21.1 H, Plt Count 272, MPV 9.5, Immature Gran % (Auto) 2.000 H, Neut % (Auto) 84.8 H, Lymph % (Auto) 6.9 L, Nicollet % (Auto) 4.9, Eos % (Auto) 1.0, Baso % (Auto) 0.4, Absolute Neuts (auto) 11.7 H, Absolute Lymphs (auto) 0.95, Nucleated RBC % 0.1, Differential Comment SCANNED, Platelet Estimate ADEQUATE, Anisocytosis 2+, Microcytosis 1+, Macrocytosis 1+, Ovalocytes 1+, Bite Cells RARE, Acanthocytes (Spur) RARE, Schistocytes RARE, Sodium 139, Potassium 3.0 L, Chloride 106, Carbon Dioxide 23.7, Anion Gap 9, BUN 13, Creatinine 0.78, Estim Creat Clear Calc 72.30, Est GFR (MDRD) Non-Af 92, BUN/Creatinine Ratio 16.4, Glucose 41 L*, Calcium 7.9 Micro: Microbiology 01/09/25 19:40 Urine, Clean Catch Legionella Antigen - Final 01/09/25 19:40 Urine, Clean Catch Streptococcus pneumoniae Antigen (M - Final 01/09/25 17:30 Mucosa - Nose SARS-CoV-2, Influenza & RSV (PCR) - Final 01/09/25 15:20 Stool Stool Occult Blood (JANNIE) - Final 01/09/25 13:40 Mucosa - Nose SARS-CoV-2, Influenza & RSV (PCR) - Final Charges/Coding Visit Charges Inpatient E&M: 18405 Init Hosp L3 01/10/25 0753 <Electronically signed by Gordo Chaves DO> Cosigner Signature (if applicable): CC: Dr. Chaitanya Puri MD~ Signed [facility] Work Phone: 1(774) 803-685507-15-2025 Discharge summary [facility] Medical Records Department [address] [place] [address] Instructions for Home/Discharge Instructions 01/10/25 0800 MR#: [id number] Acct: [id number] Name: DIPTI SIERRA Rep #:[id number] : 1945 79 From: Lencho yT DO PCP: Dr. Chaitanya Puri MD Status :ADM IN Discharge Instructions DC O2, CPAP, BIPAP needs Home O2 Discharge instructions: No Dressing / Incision Discharge Activity: Return to Normal Activity Weight Bearing Status: Full weight bearing Follow Up Care Test Results: Test results from this visit will be discussed in further detail at your follow- up appointment, if applicable. Discharge Plan Admission Admit Date/Time: 01/09/25 16:35 Primary Reason for Your Visit: anemia, pneumonia Attending Provider: Lencho Ty Primary Care Provider: Chaitanya Puri Consulting Providers: Darin Younger; Cesar Adair; Kalin Cobos; Gordo Chaves; Polo Nguyen; Barrett Brink; Fab Zarate; Ketty Napoles; Parminder Carroll; Socrates Christensen; Marco Antonio Churchill; Angela Ann; Sindhu Banks; Nicky Zavala; Lex Barillas; Bj Fisher; Kyle Siddiqi; Eddie Acosta; Felipa Christianson; Jam Lewis; Richy Sales; Nile Levy; Wisam Fermin; Srinivasan Baker Discharge Orders/Prescriptions Prescriptions: Continued omeprazole 40 mg Capsule,Delayed Release(Dr/Ec) 40 mg PO DAILY aspirin 81 mg Tablet,Delayed Release (Dr/Ec) 81 mg [...] TAKE 1 TABLET BY MOUTH AT BEDTIME Referrals / Follow Up: Chaitanya Puri MD [Primary Care Provider] - Aarti Bar DO [Med Staff - Active Staff] - See Referral Note (As scheduled) Disposition Disposition (needs filled in before D/C Order can be placed): Home, Self Care 01/10/25 0803Lencho Ty DO CC: Dr. Cesar Adair MD; Dr. Darin Younger MD; Dr. Kalin Cobos MD; Dr. Chaitanya Puri MD;Dr. Polo Nguyen MD; Dr. Gordo Chaves DO; Dr. Barrett Brink MD; Dr. Fab Zarate MD; Dr. Parminder Carroll MD; Dr. Socrates Christensen MD; Dr. Marco Antonio Churchill MD; Dr. Angela Ann MD; Dr. Sindhu Banks MD;Dr. Nicky Zavala MD; Dr. Bj Fisher MD; Dr. Srinivasan Baker MD; Dr. Lex Barillas MD;Dr. Teagan MD; Dr. Jam Lewis MD; Dr. Felipa Christianson MD; Dr. Eddie Acosta DO; Dr. Richy Sales DO; Dr. Nile Levy MD; Dr. Wisam Fermin MD; Dr. Ketty Napoles MD ~ Signed [facility]07-15-2025 [facility] Medical Records Department [address] [place] [address] Discharge Summary 01/10/25 0803 MR#: [id number] Acct: [id number] Name: DIPTI SIERRA Rep #: [id number] : 1945 79 From: Lencho Ty DO PCP: Dr. Chaitanya Puri MD Status:DIS IN Location: ICU ICU08-1 Providers Date of Admission: 01/09/25 Date of Discharge: 01/10/25 Primary Care Physician: Dr. Chaitanya Puri MD Consultations 01/09/25 16:43 Consult: Journeyman Molder / Pulmonary Medicine Routine Consulting Provider: Intensivists/Pulmonary Med Reason for Consult: CONCERN of sepsis EMERGENT Consult: No MD Notified: Yes Date Notified: 01/09/25 Time Notified: 16:43 Method of Notification: Text Reason For Visit: PNEUMONIA, LOW BP Diagnosis Discharge Diagnosis (1) Anemia: Status: Acute Code(s): D64.9 - Anemia, unspecified Plan 1. Left lower lobe pneumonia #2 anemia secondary to chemotherapy for colon cancer #3 metastatic colon cancer #4 type 2 diabetes Medications at Discharge Home Medications aspirin 81 mg tablet,delayed release 81 mg PO DAILY 01/07/22 glimepiride 4 mg tablet 4 mg PO DAILY 01/07/22 omeprazole 40 mg capsule,delayed release 40 mg PO DAILY 01/07/22 pioglitazone 30 mg tablet 30 mg PO DAILY 01/07/22 rosuvastatin 10 mg tablet 10 mg PO DAILY 01/07/22 mometasone 50 mcg/actuation nasal spray 2 spray intranasal DAILY 02/01/24 ondansetron HCl 8 mg tablet 8 mg PO Q8H PRN nausea and vomiting 02/01/24 prochlorperazine maleate 10 mg tablet 10 mg PO Q6H PRN nausea and vomiting 02/01/24 zolpidem 10 mg tablet 10 mg PO QHS PRN PRN sleep 02/01/24 insulin glargine 100 unit/mL (3 mL) subcutaneous pen (Lantus Solostar U-100 Insulin) 20 unit subcut DAILY 11/24/24 acyclovir 400 mg tablet 400 mg PO BID 01/09/25 amoxicillin 875 mg-potassium clavulanate 125 mg tablet 1 tab PO BID 01/09/25 azithromycin 250 mg tablet 250 mg PO UD 01/09/25 hydrochlorothiazide 12.5 mg tablet 12.5 mg PO DAILY 01/09/25 magnesium chloride 71.5 mg (magnesium chloride) tablet,delayed release (Slow- Mag) 71.5 mg PO BID 01/09/25 mirtazapine 15 mg tablet 15 mg PO QHS 01/09/25 potassium chloride 10 mEq tablet,extended release 10 meq PO BID 01/09/25 Hospital Course Operations None Procedures None and Blood transfusion Summary of Care Provided Minutes Spent on Discharge: 30 Hospital Course: This 79-year-old white male was seen in the emergency room at [facility] with chief complaint of shortness of breath and cough, he had been recently discharged from the hospital in [facility] after treatment for dehydration. Patient has a history of metastatic colon cancer with metastatic disease spread to the lungs and liver. Labs in the emergency room revealed a low hemoglobin at 5.9, white blood cell count was elevated, patient did not require supplemental oxygen. Chest x-ray showed bilateral infiltrates. Patient was admitted to ICU and given 1 unit of packed red blood cells, the following day the patient requested discharge to home, he had a prescription for Zithromax and Augmentin as an outpatient which he had not started. On 01/10/2025, patient was seen and examined: On examination he appeared in good health and spirits. Vital signs as documented. Skin warm and dry and without overt rashes. Neck without JVD, neck was supple, trachea midline, thyroid was normal. Lungs clear bilaterally, normal air movement was noted. Heart exam notable for regular rhythm, normal sounds and absence of murmurs, rubs or gallops. Abdomen unremarkable and without evidence of organomegaly, masses, or abdominal aortic enlargement. Bowel sounds are present, abdomen is not distended. Extremities nonedematous, no cyanosis was noted, no clubbing was noted. Neuro: Cranial nerves II through XII are grossly intact, no focal motor deficits were noted, sensation to light touch and pinprick intact, motor exam 5/5 throughout. Psych: Patient is alert and oriented x3, he does not appear anxious or depressed, he does not appear agitated. Patient was discharged home in stable condition on 01/10/2025. Weight / BMI Weight Weight: 76.3 kg Body Mass Index (BMI) 26.4 ABG / Lab / Microbiology Data 01/10/25 05:30 01/10/25 05:30 Laboratory: Laboratory Results - last 24 hr 01/09/25 14:08: WBC 13.7 H, RBC 2.19 L, Hgb 5.9 L*, Hct 19.8 L, MCV 90.4, MCH 26.9 L, MCHC 29.8 L, R DW Std Deviation 69.5 H, RDW Coeff of Micky 21.6 H, Plt Count 280, MPV 9.8, Immature Gran % (Auto) 1.200 H, Neut % (Auto) 87.1 H, Lymph % (Auto) 6.0 L, Nicollet % (Auto) 5.3, Eos % (Auto) 0.1, Baso % (Auto) 0.3, Absolute Neuts (auto) 11.9 H, Absolute Lymphs (auto) 0.82 L, Nucleated RBC % 0, Differential Comment SCANNED, Platelet Estimate ADEQUATE, Polychromasia 1+, Hypochromasia 2+, Anisocytosis 2+, PT 16.4 H, INR 1.3, APTT 39.6 H, Sodium 13 (more content not included)...[facility]07-15-2025 Consult note [facility] Medical Records Department [address] [place] [address] Consultation - Journeyman Molder 01/10/25 0653 MR#: [id number] Acct: [id number] Name: DIPTI SIERRA Rep #:[id number] : 1945 79 From: Gordo Chaves DO PCP: Dr. Chaitanya Puri MD Status :ADM IN Location: ICU ICU08-1 Assessment & Plan Assessment/Plan (1) Anemia: PLAN: Plan RECOMMENDATIONS: 1. Transfuse 1 additional unit of packed red blood cells. 2. Transition to Levaquin to complete 7 days of therapy. 3. No additional intervention or workup, per patient request. 4. CODE STATUS has been updated based upon discussion with the patient. 5. Outpatient follow-up with hospice care services next week. 6. Will sign off from a critical care perspective. IMPRESSIONS: 1. Shortness of breath Most likely secondary to presenting anemia with questionable pneumonia on chest imaging. I do not feel that the patient is septic. I do believe that his hypotension was likely the consequence of volume depletion and anemia. The patient understands that he has an incurable disease in the form of metastatic colon cancer, and at this time, does not wish to pursue any additional intervention or workup. The patient is agreeable to receiving 1 additional unitof packed red blood cells, after which time, he is requesting to be discharged home. The patient indicated that he is scheduled to be seen by p alliative/hospice care services next week. From my perspective, the patient can be transitioned to Levaquin to complete 7 days of therapy. 2. History of anemia/metastatic colon cancer/diabetes mellitus/GERD/obstructivesleep apnea Complicates care, management, recovery and prognosis. Continue supportive measures as noted above. CODE STATUS to be updated to DNR comfort care, per patient request. The patient is requesting discharge home today and does not want any additional workup or intervention at this time. This note was generated with Viddseeation software. It may contain incorrectwords, spelling, and punctuation that were not noted in checking the note beforesigning. HPI Consult Data Date of Consult: 01/10/25 HPI Narrative Reason for Consultation: Anemia HPI Narrative: The patient is a 79-year-old male, with a history as outlined below, who presented to the emergencydepartment on January 09 with shortness of breath. The patient had been referred to the emergency department for evaluation by his primary care provider over concerns for underlying pneumonia. The patient has aknown history of metastatic colon cancer, which was previously being treated with chemotherapy under the discretion of Dr. Bar of oncology. However, due to the advanced nature of his disease, coupled with the side effects of the chemotherapy, the patient decided to discontinue therapy approximately 3 weeks ago. He does report an associated cough that has been productive of clear sputum. On presentation to the emergency department, the patient was documented to be afebrile and hemodynamically stable. Laboratory evaluation revealed a white blood cell count of 13,000 with a hemoglobin of 5.9 g/dL. Coagulation profile was notable for an INR of 1.3. Chemistry profile was unremarkable. Lactate waswithin normal limits. Total bilirubin was normal. Urine analysis was unremarkable. Chest x-ray was notable for pulmonary metastatic disease with questionable left lower lobe infiltrate. Thepatient was subsequently placed onantimicrobials and IV fluids. The patient was transfused 1 unit of packed red blood cells. Overnight, the patient has remained hemodynamically stable. This morning, the patient was still noted to be anemic with a hemoglobin of 6.3 g/dL. Stool for occult blood was negative. I did have a very murray discussion with the patient this morning regarding his CODE STATUS and overall goals of care. He indicated to me that he is scheduled to be seen by hospice care services next week. He isnot currently interested in pursuing any additional intervention or workup. He understands that he has an underlying incurable disease and indicated that his goal to be discharged home today. He indicated that he is okay with receiving 1more unit of packed red blood cells, but then would like to be discharged afterwards. Ultimately, the patient's wishes are to be made comfort care. [facility] Medical History Sleep apnea Colon [...] house Smoking Status: Former smoker ROS ROS Narrative 10 systems were reviewed with pertinent positives as noted in the HPI above. Physical Exam Const alert, oriented x3 and no apparent distress General Appearance: cooperative HEENT normocephalic, head/scalp atraumatic and moist oral mucous membranes Eyes PERRL, EOMs intact bilaterally and conjunctivae normal Neck supple General: trachea midline Chest inspection of chest normal Resp normal respiratory effort Auscultation: Negative for rales, rhonchi or wheezes Cardio regular rate and regular rhythm GI normal to inspection, nondistended, normoactive bowel sounds Extremity no clubbing, cyanosis or edema Skin no rashes or lesions noted Neuro CN's II-XII intact bilaterally, moves all extremities and no focal motor deficits Psych cooperative and affect normal Lab / Micro Data 01/10/25 05:30 01/10/25 05:30 Labs: Laboratory Results - last 24 hr 01/09/25 14:08: WBC 13.7 H, RBC 2.19 L, Hgb 5.9 L*, Hct 19.8 L, MCV 90.4, MCH 26.9 L, MCHC 29.8 L, RDW Std Deviation 69.5 H, RDW Coeff of Micky 21.6 H, Plt Count 280, MPV 9.8, Immature Gran % (Auto) 1.200 H, Neut % (Auto) 87.1 H, Lymph % (Auto) 6.0 L, Nicollet % (Auto) 5.3, Eos % (Auto) 0.1, Baso % (Auto) 0.3, AbsoluteNeuts (auto) 11.9 H, Absolute Lymphs (auto) 0.82 L, Nucleated RBC % 0, Differential Comment SCANNED, Platelet Estimate ADEQUATE, Polychromasia 1+, Hypochromasia 2+, Anisocytosis 2+, PT 16.4 H, INR 1.3, APTT 39.6 H, Sodium 133, Potassium 3.6, Chloride 96 L, Carbon Dioxide 26.0, Anion Gap 11, BUN 19, Creatinine 1.05, Estim Creat Clear Calc 55.08, Est GFR (MDRD) Non-Af 73, BUN/Creatinine Ratio 17.7, Glucose 177 H, Lactic Acid 1.4, Calcium 8.5, Magnesium 2.2, Total Bilirubin 0.93, AST29, ALT 14, Alkaline Phosphatase 130 H,Total Creatine Kinase 24, Total Protein 7.5, Albumin 2.4 L, Globulin 5.1 H, Albumin/Globulin Ratio 0.5 L 01/09/25 17:30: MRSA (PCR) Negative 01/09/25 18:50: Blood Type O POSITIVE, Antibody Screen NEGATIVE, Crossmatch See Detail 01/10/25 02:00: Urine Color Yellow, Urine Clarity Clear, Urine pH 6.0, Ur Specific [place] 1.010, Urine Protein 15 H, Urine Glucose (UA) Normal, Urine Ketones Negative, Urine Occult Blood Negative, Urine Nitrite Negative, Urine Bilirubin Negative, Urine Urobilinogen 4 H, Ur Leukocyte Esterase Negative, Urine RBC 0 SEEN, Urine WBC 0 SEEN, Ur Squamous Epith Cells 0-5 SEEN, Urine Bacteria 1+, Urine Mucus 0 SEEN 01/10/25 05:30: WBC 13.8 H, RBC 2.30 L, Hgb 6.3 L, Hct 20.8 L, MCV 90.4, MCH 27.4, MCHC 30.3 L, RDWStd Deviation 67.3 H, RDW Coeff of Micky 21.1 H, Plt Count 272, MPV 9.5, Immature Gran % (Auto) 2.000H, Neut % (Auto) 84.8 H, Lymph % (Auto) 6.9 L, Nicollet % (Auto) 4.9, Eos % (Auto) 1.0, Baso % (Auto) 0.4, Absolute Neuts (auto) 11.7 H, Absolute Lymphs (auto) 0.95, Nucleated RBC % 0.1, Differential Comment SCANNED, Platelet Estimate ADEQUATE, Anisocytosis 2+, Microcytosis 1+, Macrocytosis 1+, Ovalocytes 1+, Bite Cells RARE, Acanthocytes (Spur) RARE, Schistocytes RARE, Sodium 139, Potassium 3.0 L, Chloride 106, Carbon Dioxide 23.7, Anion Gap 9, BUN 13, Creatinine 0.78, Estim Creat Clear Calc 72.30, Est GFR (MDRD) Non-Af 92, BUN/Creatinine Ratio 16.4, Glucose 41 L*, Calcium 7.9 Micro: Microbiology 01/09/25 19:40 Urine, Clean Catch Legionella Antigen - Final 01/09/25 19:40 Urine, Clean Catch Streptococcus pneumoniae Antigen (M - Final 01/09/25 17:30 Mucosa - Nose SARS-CoV-2, Influenza & RSV (PCR) - Final 01/09/25 15:20 Stool Stool Occult Blood (JANNIE) - Final 01/09/25 13:40 Mucosa - Nose SARS-CoV-2, Influenza & RSV (PCR) - Final Charges/Coding Visit Charges Inpatient E&M: 50108 Init Hosp L3 01/10/25 0753 Cosigner Signature (if applicable): CC: Dr. Chaitanya Puri MD~ Signed [facility]07-14-2025 Progress note Author [facility] Note Date/Time January 09, 2025 8:22 pm [facility] Medical Records Department [address] [place] [address] Progress Note - Sepsis 01/09/25 1640 MR#: [id number] Acct: [id number] Name: DIPTI SIERRA Rep #:[id number] : 1945 79 From: Srinivasan Stiles PCP: Dr. Chaitanya Puri MD Status :ADM IN Location: ICU ICU08-1 Sepsis Attestation Sepsis Alert: Yes Sepsis Attestation: Agree w/Sepsis Date exam was performed: 01/09/25 Time exam was performed: 16:40 Possible Source of Sepsis: Pulmonary Supportive Findings: Systolic blood pressure about 94-96, leukocytosis, severe anemia Fluid Resuscitation Fluid resuscitation indicated?: Yes Fluid Resuscitation ordered: 30 ml/kg fluid bolus ordered Amount of fluid ordered: 2,230 Sepsis Note Date exam was performed: 01/09/25 Time exam was performed: 19:58 Sepsis Attestation: Sepsis re-evaluation was performed Response to fluids: Fluid responsive hypotension 01/09/252021 <Electronically signed by Srinivasan Baker MD> Cosigner Signature (if applicable): CC: ~ Signed [facility] Work Phone: 1(728) 946-162607-14-2025 History and physical note Author [facility] Note Date/Time January 09, 2025 6:33 pm [facility] Medical Records Department [address] [place] [address] H&P Exam - Hospitalist 01/09/25 1646 MR#: [id number] Acct: [id number] Name: DIPTI SIERRA Rep #:[id number] : 1945 79 From: Srinivasan Stiles PCP: Dr. Chaitanya Puri MD Status :ADM IN Location: ICU ICU08-1 HPI - General General Date of Admission: 01/09/25 Date of Service: 01/09/25 Chief Complaint: Productive cough, mild shortness of breath for 1 to 2 weeks HPI Narrative DIPTI SIERRA, is a 79 M who was sent to ED by PCP for productive cough, shortness of breath for about 2 weeks. He is not doing well after recent chemotherapy about 2 weeks ago, FOLFIRI by his oncologist Dr. Aarti Bar. Afterchemotherapy patient had diarrhea, weakness, nausea and vomiting decreased oral intake and loss of weight from 180 to 160 pounds. Since then patient also getting productive cough with brownish/greenish sputum along with mild shortnessof breath. He denies any fever or chills. His diarrhea has been resolved 2 days in the PCP office, he was found to have tachycardia heart rate more than 100 and, leukocytosis, 22.4 thousand, anemia hemoglobin 7.6 normal platelet count. Chest x-ray was done which shows left lower lobe consolidation and pulmonary metastasis. In ED, patient blood pressure was found very low, systolic 94, clinically dry, short of breath requiring 2 L of oxygen. He was afebrile. H&H also found 5.9/19.8% Patient finally admitted in ICU with concern of possible sepsis [facility] Medical History Sleep apnea Colon [...] house Smoking Status: Former smoker ROS ROS Narrative Constitutional: Reports fatigue and weakness after chemotherapy. No fever. Fatigue and frail HEENT: Reports systems reviewed and no addt'l complaints, except as documented Respiratory/Chest: Mild shortness of breath mainly on exertion. No wheezing. Prior history of smoking. CVS: No acute chest pressure or tightness. Gastrointestinal: Denies coffee ground emesis, hematemesis or vomiting. He had after chemotherapy as described in HPI Genitourinary: Denies burning urination or new urinary tract symptoms Musculoskeletal: Denies acute joint pain or limited range of motion. No acute injury Neurologic: Denies seizure-like symptoms. skin: No ulcer. 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 Reports systems reviewed and no addt'l complaints, except as documented Rest 14 ROS are negative except as mentioned in HPI Vital Signs Vital Signs Vital Signs: 01/09/25 13:13 01/09/25 13:58 01/09/25 [...] Air Room Air Room Air 01/09/25 16:00 01/09/25 16:34 Temperature 98.6 F 98.6 F Temperature Source Oral Pulse Rate 73 73 Respiratory Rate 18 18 Respiratory Effort Respiratory Depth Respiratory Pattern Blood Pressure 96/56 L 96/56 L Blood Pressure Mean 69 69 Pulse Ox 98 98 Oxygen Delivery Method Room Air Weight Weight: 160 lb Body Mass Index (BMI) 25.0 Physical Exam Narrative General: Alert, Oriented x3, Cooperative. BMI 25.7 kg/m?, recent loss of weight HEENT: Atraumatic, PERRLA, EOMI, Normocephalic. Oral: Oral mucosa dry no Gingival or Mucosal Lesions/ Ulcerations Neck: Supple, No JVD, Negative Carotid Bruits Chest wall/Lungs: Left upper chest Mediport. Air entry diminished in left lung base. Bilateral lower lobe crepitations. Mild hypoxia. Tachypnea present Cardiovascular: Regular rate and rhythm, Normal S1,S2, No M/G/R Abdomen: Bowel Sounds sluggish, Soft, Non Tender, Non-Distended : No dysuria. No renal angle tenderness. No suprapubic tenderness. Extremities: No edema, Capillary Refill Less than 3 Seconds Skin: No rashes, No breakdown Musculoskeletal: No Tenderness to Palpation of Joints or Extremities. ROM intact Neurological: Cranial nerves II-XII grossly intact, DTR 2+/4. No acute focal neurological deficit. Psych/Mental Status: Flat affect Results Lab / Micro Data 01/09/25 14:08 01/09/25 14:08 Labs: Laboratory Results - last 24 hr 01/09/25 14:08: WBC 13.7 H, RBC 2.19 L, Hgb 5.9 L*, Hct 19.8 L, MCV 90.4, MCH 26.9 L, MCHC 29.8 L, RDW Std Deviation 69.5 H, RDW Coeff of Micky 21.6 H, Plt Count 280, MPV 9.8, Immature Gran % (Auto) 1.200 H, Neut % (Auto) 87.1 H, Lymph % (Auto) 6.0 L, Nicollet % (Auto) 5.3, Eos % (Auto) 0.1, Baso % (Auto) 0.3, AbsoluteNeuts (auto) 11.9 H, Absolute Lymphs (auto) 0.82 L, Nucleated RBC % 0, Differential Comment SCANNED, Platelet Estimate ADEQUATE, Polychromasia 1+, Hypochromasia 2+, Anisocytosis 2+, PT 16.4 H, INR 1.3, APTT 39.6 H, Sodium 133, Potassium 3.6, Chloride 96 L, Carbon Dioxide 26.0, Anion Gap 11, BUN 19, Creatinine 1.05, Estim Creat Clear Calc 55.08, Est GFR (MDRD) Non-Af 73, BUN/Creatinine Ratio 17.7, Glucose 177 H, Lactic Acid 1.4, Calcium 8.5, Total Bilirubin 0.93, AST 29, ALT 14, Alkaline Phosphatase 130 H, Total Protein 7.5, Albumin 2.4 L, Globulin 5.1 H, Albumin/Globulin Ratio 0.5 L Micro: Microbiology 01/09/25 15:20 Stool Stool Occult Blood (JANNIE) - Final 01/09/25 13:40 Mucosa - Nose SARS-CoV-2, Influenza & RSV (PCR) - Final Assessment & Plan Assessment/Plan (1) Anemia: (2) Pneumonia: (3) Colon cancer metastasized to multiple sites: PLAN: Plan This 75-year-old gentleman with downhill course after recent chemotherapy 2 weeks ago presented with worsening of shortness of breath/FERNANDEZ and productive cough since then. 1. Left lower lobe healthcare associated pneumonia: He has SIRS criteria with leukocytosis, tachycardia, tachypnea and mild hypoxia but did not have signs of endorgan dysfunction. Lactic acid normal. Therefore does not meet criteria as per SEP 3 definition but has positive SIRS due to pneumonia. IV fluid resuscitation 30 mL/kg body weight with broad-spectrum antibiotic vancomycin andZosyn. Pneumonia workup ordered. Patient diarrhea has resolved therefore C. difficile and enteric pathogen panel not ordered. Journeyman Molder consulted. Triple PCR for SARS-CoV-2, flu and RSV are negative Chest x-ray initially reviewed and shows left lower lobe consolidation and meds. Chest x-ray done today in PCP office, was reported left lower lobe consolidation and pulmonary metastasis. Twelve-lead EKG shows NSR, PAC at 86 beats minute. QTc 480 ms. 2. Carcinoma colon, status post resection and 3 anastomosis in 2023 in [facility] withmetastasis to liver and lungs: Patient was started on FOLFIRI chemotherapy 2 weeks ago. Outpatient labs were reviewed. Patient had severe leukopenia, WBC 1000, hemoglobin 7.8, platelet count 88 on 12/15 which has recovered since then. Platelet count in normal the patient is still has severe anemia and leukocytosis. Patient had severe diarrhea, loss of weight loss of appetite, nausea and vomiting and does not want further chemotherapy. His oncologist is Dr. Aarti Bar. 3. Severe anemia most likely due to chemotherapy: Patient H&H 5.9/19%. His hemoglobin was 7.9 on 12/15 and 7.6 today, 01/09 as an outpatient. Monitor PRBC transfusion ordered. Check H&H after transfusion. Hold baby aspirin. 4. Hypertension: Currently blood pressure is on lower side. Patient has Mediport. If needed he is agreeable for vasopressors/Levophed 5. DM type II: Glucose is 177. PCP office record reviewed. A1c 5.8% mentionedon the note. Accu-Chek before meals and at bedtime with Humalog sliding scale coverage and hypoglycemia protocol. 6. GERD, obstructive sleep apnea and dyslipidemia: CPAP ordered. IV PPI. Stool for occult blood negative 7. DVT prophylaxis, high risk: Bilateral SCDs. Pharmacological prophylaxis continued because of severe anemia. Living will/advanced directive/end of life care: Patient does have living will or advanced directive. He does not remember who is power of commercial litigation attorney for healthbut his is next of kin after discussion of benefits/risks procedures involved with full code, DNR CC arrest and DNR CC, the patient opted for DNR CCA with mild tissue and but want vasopressors through Mediport if indicated. Patient doesn't want artificial life support including intubation, tube feed, ventilator and/chest compression, central venous catheter, and DC shock if needed Total time spent in [id number] encounter in discussion of advanced directive 17 minutes. Microbiology Past 72 Hours 01/09/25 15:20 Stool Stool Occult Blood (JANNIE) - Final 01/09/25 13:40 Mucosa - Nose SARS-CoV-2, Influenza & RSV (PCR) - Final Laboratory Results 01/09/25 14:08: WBC 13.7 H, RBC 2.19 L, Hgb 5.9 L*, Hct 19.8 L, MCV 90.4, MCH 26.9 L, MCHC 29.8 L, RDW Std Deviation 69.5 H, RDW Coeff of Micky 21.6 H, Plt Count 280, MPV 9.8, Immature Gran % (Auto) 1.200 H, Neut % (Auto) 87.1 H, Lymph % (Auto) 6.0 L, Nicollet % (Auto) 5.3, Eos % (Auto) 0.1, Baso % (Auto) 0.3, AbsoluteNeuts (auto) 11.9 H, Absolute Lymphs (auto) 0.82 L, Nucleated RBC % 0, Differential Comment SCANNED, Platelet Estimate ADEQUATE, Polychromasia 1+, Hypochromasia 2+, Anisocytosis 2+, PT 16.4 H, INR 1.3, APTT 39.6 H, Sodium 133, Potassium 3.6, Chloride 96 L, Carbon Dioxide 26.0, Anion Gap 11, BUN 19, Creatinine 1.05, Estim Creat Clear Calc 55.08, Est GFR (MDRD) Non-Af 73, BUN/Creatinine Ratio 17.7, Glucose 177 H, Lactic Acid 1.4, Calcium 8.5, Magnesium 2.2, Total Bilirubin 0.93, AST 29, ALT 14, Alkaline Phosphatase 130 H,Total Creatine Kinase 24, Total Protein 7.5, Albumin 2.4 L, Globulin 5.1 H, Albumin/Globulin Ratio 0.5 L 01/09/25 17:30: MRSA (PCR) Pending Charges/Coding Visit Charges Inpatient E&M: 24489 Init Hosp L3 Procedures Hospitalists Procedures: 23799 Advncd Care Plan 30 Min 01/09/25 1833 <Electronically signed by Srinivasan Baker MD> Cosigner Signature (if applicable): CC: Dr. Chaitanya Puri MD; Dr. Aarti Bar DO; Dr. Srinivasan Baker MD~ Signed [facility] Work Phone: [phone]) [phone] [facility] Medical Records Department [address] [place] [address] Progress Note - Sepsis 01/09/25 1640 MR#: [id number] Acct: [id number] Name: DIPTI SIERRA Rep #:[id number] : 1945 79 From: Srinivasan Stiles PCP: Dr. Chaitanya Puri MD Status :ADM IN Location: ICU ICU08-1 Sepsis Attestation Sepsis Alert: Yes Sepsis Attestation: Agree w/Sepsis Date exam was performed: 01/09/25 Time exam was performed: 16:40 Possible Source of Sepsis: Pulmonary Supportive Findings: Systolic blood pressure about 94-96, leukocytosis, severe anemia Fluid Resuscitation Fluid resuscitation indicated?: Yes Fluid Resuscitation ordered: 30 ml/kg fluid bolus ordered Amount of fluid ordered: 2,230 Sepsis Note Date exam was performed: 01/09/25 Time exam was performed: 19:58 Sepsis Attestation: Sepsis re-evaluation was performed Response to fluids: Fluid responsive hypotension 01/09/252021 Cosigner Signature (if applicable): CC: ~ Signed [facility]07-14-2025 Consult note Author Chad Patel [facility] Note Date/Time January 09, 2025 5:48 pm [facility] Medical Records Department [address] [place] [address] Pharmacokinetic/Renal -Consult 01/09/25 1728 MR#: [id number] Acct: [id number] Name: DIPTI SIERRA Rep #:[id number] : 1945 79 From: Chad Patel PCP: Dr. Chaitanya Puri MD Status :ADM IN Y Location: ICU ICU08-1 Consult Antibiotic Management Pharmacy has been consulted to manage selected antibiotic: Vancomycin Type of Intervention Type of Consult: New start Suspected Infection Suspected Infection: Sepsis and Pneumonia Prior Doses of Antibiotics Prior Doses of Antibiotics Received/Current Regimen: Vancomycin 1750 mg IV x 1 given 01/09/25 @ 1510 Labs Labs: Sodium 133 mmol/L (133-145) 01/09/25 14:08 Potassium 3.6 mmol/L (3.3-5.1) 01/09/25 14:08 Chloride 96 mmol/L (98-108) L 01/09/25 14:08 Carbon Dioxide 26.0 mmol/L (21.0-32.0) 01/09/25 14:08 Anion Gap 11 (5-15) 01/09/25 14:08 BUN 19 mg/dL (4-19) 01/09/25 14:08 Creatinine 1.05 mg/dL (0.70-1.20) 01/09/25 14:08 Est GFR (MDRD) Non-Af 73 (>60) 01/09/25 14:08 BUN/Creatinine Ratio 17.7 RATIO (10-20) 01/09/25 14:08 Glucose 177 mg/dL (70-99) H 01/09/25 14:08 Microbiology Microbiology: Microbiology 01/09/25 15:20 Stool Stool Occult Blood (JANNIE) - Final 01/09/25 13:40 Mucosa - Nose SARS-CoV-2, Influenza & RSV (PCR) - Final Dosing Weight Weight used for dosin kg Estimated Creatinine Clearance Estimated Creatinine Clearance: ~ 55 Goal Trough Goal Trough: 15-20 mcg/mL Pharmacy Plan for Drug Dosing Pharmacy Plan for Drug Dosing: Vancomycin 1750 mg IV x 1 followed by 750 mg Q12h Pharmacy Service will continue to monitor and adjust dosing as required. Follow-Up Labs Follow-Up Labs: Trough: Vancomycin Date/Time Labs Ordered Labs to be done on [date and time ordered]: 01/11/25 @ 0230 01/09/25 1729 <Electronically signed by Chad hernandez> Date _ Chad Patel 01/09/25 8375 <Electronically signed by Srinivasan Baker MD> Cosigner Signature (if applicable): Date __ Srinivasan Baker MD CC: ~ Signed [facility] Work Phone: 1(420) 587-205107-14-2025 Discharge summary Author Alexandro Navarro [facility] Note Date/Time January 09, 2025 4:[address] [facility] Medical Records Department [address] [place] [address] Emergency Department Summary 01/09/25 MR#: [id number] Acct: [id number] Name: DIPTI SIERRA Rep #:[id number] : [...] effects. Couple weeks ago was admitted to [facility] for day due to dehydration. Last 2 [...] Dr. Bar. Prior similar symptoms: Yes PFSH PFS Medical History Sleep apnea Colon cancer GERD [...] Gastroenterology, hospitalist This note was generated with Viddseeation software. It may contain incorrectwords, spelling, and [...] 87.1 H Lymph % (Auto) 6.0 L Nicollet % (Auto) 5.3 Eos % (Auto) 0.1 [...] (excluding procedures): 30-74 minutes, Discussing w/Patient &/or Family/Test Kitchen Home Economist, Discussing w/Consultants, Arranging Admission or Transfer, Performing [...] MD [Primary Care Provider] - Print Language: [place] Disposition Disposition: Acute Care Hospital [facility] What to do if you have Problems For any increased pain, shortness of breath, bleeding, nausea or vomiting, chestpain, or any unexpected problems, contact your Primary Care Provider. Call [facility] ([phone]) or report to the closest Emergency Room. Call 911 if necessary. 01/09/25 1646 <Electronically signed by Alexandro Dillard> Cosigner Signature (if applicable): CC: Dr. Chaitanya Prui MD ~ Signed [facility] Work Phone: [phone]) 609-896907-14-2025 Evaluation note* Diagnosis Onset Date Resolution Status Admit Date Anemia acute January 09 4:35pm Colon cancer metastasized to multiple sites acute January 09, 2025 4:35pm Pneumonia acute January 09 4:35pm [facility] Work Phone: [phone] Evaluation note* Diagnosis Onset Date Resolution Status Admit Date Anemia inactive January 09 4:35pm Colon cancer metastasized to multiple sites inactive January 09, 2025 4:35pm Pneumonia inactive January 09 4:35pm [facility] Work Phone: [phone] 418-558807-14-2025 History and physical note [facility] Medical Records Department [address] [place] [address] H&P Exam - Hospitalist 01/09/25 1646 MR#: [id number] Acct: [id number] Name: DIPTI SIERRA Rep #:[id number] : 1945 79 From: Srinivasan Stiles PCP: Dr. Chaitanya Puri MD Status :ADM IN Location: ICU ICU-1 HPI - General General Date of Admission: 01/09/25 Date of Service: 01/09/25 Chief Complaint: Productive cough, mild shortness of breath for 1 to 2 weeks HPI Narrative DIPTI SIERRA, is a 79 M who was sent to ED by PCP for productive cough, shortness of breath for about 2 weeks. He is not doing well after recent chemotherapy about 2 weeks ago, FOLFIRI by his oncologist Dr. Aarti Bar. Afterchemotherapy patient had diarrhea, weakness, nausea and vomiting decreased oral intake and loss of weight from 180 to 160 pounds. Since then patient also getting productive cough with brownish/greenish sputum along with mild shortnessof breath. He denies any fever or chills. His diarrhea has been resolved 2 days in the PCP office, he was found to have tachycardia heart rate more than 100 and, leukocytosis, 22.4 thousand, anemia hemoglobin 7.6 normal platelet count. Chest x-ray was done which shows left lower lobe consolidation and pulmonary metastasis. In ED, patient blood pressure was found very low, systolic 94, clinically dry, short of breath requiring 2 L of oxygen. He was afebrile. H&H also found 5.9/19.8% Patient finally admitted in ICU with concern of possible sepsis [facility] Medical History Sleep apnea Colon [...] house Smoking Status: Former smoker ROS ROS Narrative Constitutional: Reports fatigue and weakness after chemotherapy. No fever. Fatigue and frail HEENT: Reports systems reviewed and no addt'l complaints, except as documented Respiratory/Chest: Mild shortness of breath mainly on exertion. No wheezing. Prior history of smoking. CVS: No acute chest pressure or tightness. Gastrointestinal: Denies coffee ground emesis, hematemesis or vomiting. He had after chemotherapy as described in HPI Genitourinary: Denies burning urination or new urinary tract symptoms Musculoskeletal: Denies acute joint pain or limited range of motion. No acute injury Neurologic: Denies seizure-like symptoms. skin: No ulcer. 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 Reports systems reviewed and noaddt'l complaints, except as documented Rest 14 ROS are negative except as mentioned in HPI Vital Signs Vital Signs Vital Signs: 01/09/25 13:13 01/09/25 13:58 01/09/25 [...] Air Room Air Room Air 01/09/25 16:00 01/09/25 16:34 Temperature 98.6 F 98.6 F Temperature Source Oral Pulse Rate 73 73 Respiratory Rate 18 18 Respiratory Effort Respiratory Depth Respiratory Pattern Blood Pressure 96/56 L 96/56 L Blood Pressure Mean 69 69 Pulse Ox 98 98 Oxygen Delivery Method Room Air Weight Weight: 160 lb Body Mass Index (BMI) 25.0 Physical Exam Narrative General: Alert, Oriented x3, Cooperative. BMI 25.7 kg/m?, recent loss of weight HEENT: Atraumatic, PERRLA, EOMI, Normocephalic. Oral: Oral mucosa dry no Gingival or Mucosal Lesions/ Ulcerations Neck: Supple, No JVD, Negative Carotid Bruits Chest wall/Lungs: Left upper chest Mediport. Air entry diminished in left lung base. Bilateral lower lobe crepitations. Mild hypoxia. Tachypnea present Cardiovascular: Regular rate and rhythm, Normal S1,S2, No M/G/R Abdomen: Bowel Sounds sluggish, Soft, Non Tender, Non-Distended : No dysuria. No renal angle tenderness. No suprapubic tenderness. Extremities: No edema, Capillary Refill Less than 3 Seconds Skin: No rashes, No breakdown Musculoskeletal: No Tenderness to Palpation of Joints or Extremities. ROM intact Neurological: Cranial nerves II-XII grossly intact, DTR 2+/4. No acute focal neurological deficit. Psych/Mental Status: Flat affect Results Lab / Micro Data 01/09/25 14:08 01/09/25 14:08 Labs: Laboratory Results - last 24 hr 01/09/25 14:08: WBC 13.7 H, RBC 2.19 L, Hgb 5.9 L*, Hct 19.8 L, MCV 90.4, MCH 26.9 L, MCHC 29.8 L, RDW Std Deviation 69.5 H, RDW Coeff of Micky 21.6 H, Plt Count 280, MPV 9.8, Immature Gran % (Auto) 1.200 H, Neut % (Auto) 87.1 H, Lymph % (Auto) 6.0 L, Nicollet % (Auto) 5.3, Eos % (Auto) 0.1, Baso % (Auto) 0.3, AbsoluteNeuts (auto) 11.9 H, Absolute Lymphs (auto) 0.82 L, Nucleated RBC % 0, Differential Comment SCANNED, Platelet Estimate ADEQUATE, Polychromasia 1+, Hypochromasia 2+, Anisocytosis 2+, PT 16.4 H, INR 1.3, APTT 39.6 H, Sodium 133, Potassium 3.6, Chloride 96 L, Carbon Dioxide 26.0, Anion Gap 11, BUN 19, Creatinine 1.05, Estim Creat Clear Calc 55.08, Est GFR (MDRD) Non-Af 73, BUN/Creatinine Ratio 17.7, Glucose 177 H, Lactic Acid 1.4, Calcium 8.5, Total Bilirubin 0.93, AST 29, ALT 14, Alkaline Phosphatase 130 H, Total Protein 7.5, Albumin 2.4 L, Globulin 5.1 H, Albumin/Globulin Ratio 0.5 L Micro: Microbiology 01/09/25 15:20 Stool Stool Occult Blood (JANINE) - Final 01/09/25 13:40 Mucosa - Nose SARS-CoV-2, Influenza & RSV (PCR) - Final Assessment & Plan Assessment/Plan (1) Anemia: (2) Pneumonia: (3) Colon cancer metastasized to multiple sites: PLAN: Plan This 75-year-old gentleman with downhill course after recent chemotherapy 2 weeks ago presented with worsening of shortness of breath/FERNANDEZ and productive cough since then. 1. Left lower lobe healthcare associated pneumonia: He has SIRS criteria with leukocytosis, tachycardia, tachypnea and mild hypoxia but did not have signs of endorgan dysfunction. Lactic acid normal.Therefore does not meet criteria as per SEP 3 definition but has positive SIRS due to pneumonia. IVfluid resuscitation 30 mL/kg body weight with broad-spectrum antibiotic vancomycin andZosyn. Pneumon ia workup ordered. Patient diarrhea has resolved therefore C. difficile and enteric pathogen panel not ordered. Journeyman Molder consulted. Triple PCR for SARS-CoV-2, flu and RSV are negative Chest x-ray initially reviewed and shows left lower lobe consolidation and meds. Chest x-ray done today in PCP office, was reported left lower lobe consolidation and pulmonary metastasis. Twelve-lead EKG shows NSR, PAC at 86 beats minute. QTc 480 ms. 2. Carcinoma colon, status post resection and 3 anastomosis in 2023 in [facility] withmetastasis to liver and lungs: Patient was started on FOLFIRI chemotherapy 2 weeks ago. Outpatient labs were reviewed. Patient had severe leukopenia, WBC 1000, hemoglobin 7.8, platelet count 88 on 12/15 which has recovered since then. Platelet count in normal the patient is still has severe anemia and leukocytosis. Patient had severe diarrhea, loss of weight loss of appetite, nausea and vomiting and does not want further chemotherapy. His oncologist is Dr. Aarti Bar. 3. Severe anemia most likely due to chemotherapy: Patient H&H 5.9/19%. His hemoglobin was 7.9 on 12/15 and 7.6 today, 01/09 as an outpatient. Monitor PRBC transfusion ordered. Check H&H after transfusion. Hold baby aspirin. 4. Hypertension: Currently blood pressure is on lower side. Patient has Mediport. If needed he is agreeable for vasopressors/Levophed 5. DM type II: Glucose is 177. PCP office record reviewed. A1c 5.8% mentionedon the note. Accu-Chekbefore meals and at bedtime with Humalog sliding scale coverage and hypoglycemia protocol. 6. GERD, obstructive sleep apnea and dyslipidemia: CPAP ordered. IV PPI. Stool for occult blood negative 7. DVT prophylaxis, high risk: Bilateral SCDs. Pharmacological prophylaxis continued because of severe anemia. Living will/advanced directive/end of life care: Patient does have living will or advanced directive. He does not remember who is power of commercial litigation attorney for healthbut his is next of kin after discussion of benefits/risks procedures involved with full code, DNR CC arrest and DNR CC, the patient opted for DNR CCA with mild tissue and but want vasopressors through Mediport if indicated. Patient doesn't want artificial life support including intubation, tube feed, ventilator and/chest compression, central venous catheter, and DC shock if needed Total time spent in [id number] encounter in discussion of advanced directive 17 minutes. Microbiology Past 72 Hours 01/09/25 15:20 Stool Stool Occult Blood (JANNIE) - Final 01/09/25 13:40 Mucosa - Nose SARS-CoV-2, Influenza & RSV (PCR) - Final Laboratory Results 01/09/25 14:08: WBC 13.7 H, RBC 2.19 L, Hgb 5.9 L*, Hct 19.8 L, MCV 90.4, MCH 26.9 L, MCHC 29.8 L, RDW Std Deviation 69.5 H, RDW Coeff of Micky 21.6 H, Plt Count 280, MPV 9.8, Immature Gran % (Auto) 1.200 H, Neut % (Auto) 87.1 H, Lymph % (Auto) 6.0 L, Nicollet % (Auto) 5.3, Eos % (Auto) 0.1, Baso % (Auto) 0.3, AbsoluteNeuts (auto) 11.9 H, Absolute Lymphs (auto) 0.82 L, Nucleated RBC % 0, Differential Comment SCANNED, Platelet Estimate ADEQUATE, Polychromasia 1+, Hypochromasia 2+, Anisocytosis 2+, PT 16.4 H, INR 1.3, APTT 39.6 H, Sodium 133, Potassium 3.6, Chloride 96 L, Carbon Dioxide 26.0, Anion Gap 11, BUN 19, Creatinine 1.05, Estim Creat Clear Calc 55.08, Est GFR (MDRD) Non-Af 73, BUN/Creatinine Ratio 17.7, Glucose 177 H, Lactic Acid 1.4, Calcium 8.5, Magnesium 2.2, Total Bilirubin 0.93, AST29, ALT 14, Alkaline Phosphatase 130 H,Total Creatine Kinase 24, Total Protein 7.5, Albumin 2.4 L, Globulin 5.1 H, Albumin/Globulin Ratio 0.5 L 01/09/25 17:30: MRSA (PCR) Pending Charges/Coding Visit Charges Inpatient E&M: 91731 Init Hosp L3 Procedures Hospitalists Procedures: 96031 Advncd Care Plan 30 Min 01/09/25 1833 Cosigner Signature (if applicable): CC: Dr. Chaitanya Puri MD; Dr. Aarti Bar DO; Dr. Srinivasan Baker MD~ Signed [facility]07-14-2025 Consult note [facility] Medical Records Department [address] [place] [address] Pharmacokinetic/Renal -Consult 01/09/25 1728 MR#: [id number] Acct: [id number] Name: DIPTI SIERRA Rep #:[id number] : 1945 79 From: Chad Patel PCP: Dr. Chaitanya Puri MD Status :ADM IN Y Location: ICU ICU08-1 Consult Antibiotic Management Pharmacy has been consulted to manage selected antibiotic: Vancomycin Type of Intervention Type of Consult: New start Suspected Infection Suspected Infection: Sepsis and Pneumonia Prior Doses of Antibiotics Prior Doses of Antibiotics Received/Current Regimen: Vancomycin 1750 mg IV x 1 given 01/09/25 @ 1510 Labs Labs: Sodium 133 mmol/L (133-145) 01/09/25 14:08 Potassium 3.6 mmol/L (3.3-5.1) 01/09/25 14:08 Chloride 96 mmol/L (98-108) L 01/09/25 14:08 Carbon Dioxide 26.0 mmol/L (21.0-32.0) 01/09/25 14:08 Anion Gap 11 (5-15) 01/09/25 14:08 BUN 19 mg/dL (4-19) 01/09/25 14:08 Creatinine 1.05 mg/dL (0.70-1.20) 01/09/25 14:08 Est GFR (MDRD) Non-Af 73 (>60) 01/09/25 14:08 BUN/Creatinine Ratio 17.7 RATIO (10-20) 01/09/25 14:08 Glucose 177 mg/dL (70-99) H 01/09/25 14:08 Microbiology Microbiology: Microbiology 01/09/25 15:20 Stool Stool Occult Blood (JANNIE) - Final 01/09/25 13:40 Mucosa - Nose SARS-CoV-2, Influenza & RSV (PCR) - Final Dosing Weight Weight used for dosin kg Estimated Creatinine Clearance Estimated Creatinine Clearance: ~ 55 Goal Trough Goal Trough: 15-20 mcg/mL Pharmacy Plan for Drug Dosing Pharmacy Plan for Drug Dosing: Vancomycin 1750 mg IV x 1 followed by 750 mg Q12h Pharmacy Service will continue to monitor and adjust dosing as required. Follow-Up Labs Follow-Up Labs: Trough: Vancomycin Date/Time Labs Ordered Labs to be done on [date and time ordered]: 01/11/25 @ 0230 01/09/25 1729 r> Date _ Chad Patel 01/09/25 1748 > Muna Signature (if applicable): Date __ Srinivasan Baker MD CC: ~ Signed [facility]07-14-2025 Discharge summary [facility] Medical Records Department [address] [place] [address] Emergency Department Summary 01/09/25 MR#: [id number] Acct: [id number] Name: DIPTI SIERRA Rep #:[id number] : [...] effects. Couple weeks ago was admitted to [facility] for day due todehydration. Last 2 days increasing productive sputum. He [...] Dr. Bar. Prior similar symptoms: Yes PFSH PFSH Medical History Sleep apnea Colon cancer GERD [...] 1 view chest x-ray: Right lower lobe massstructure noted left lower lobe infiltrative findings. External [...] Patient with pneumonia, anemia, will discusswith hospitalist foradmission. I did discuss with GI Dr. Friend, [...] Gastroenterology, hospitalist This note was generated with [employer] dictation software. It may contain incorrectwords, spelling, [...] 87.1 H Lymph % (Auto) 6.0 L Nicollet % (Auto) 5.3 Eos % (Auto) 0.1 [...] (excluding procedures): 30-74 minutes, Discussing w/Patient &/or Family/CareGiver, Discussing w/Consultants, Arranging Admission or Transfer, Performing Direct Patient Care atBedside and - (35 minutes) Discharge Plan Triage [...] MD [Primary Care Provider] - Print Language: [place] Disposition Disposition: Acute Care Hospital [facility] What to do if you have Problems For any increased pain, shortness of breath, bleeding, nausea or vomiting, chestpain, or any unexpected problems, contact your Primary Care Provider. Call [facility] ([phone]) or report tothe closest Emergency Room. Call 911 if necessary. 01/09/25 1646 Cosigner Signature (if applicable): CC: Dr. Chaitanya Puri MD ~ Signed [facility]07-14-2025 Discharge summary Author Alexandro Navarro [facility] Note Date/Time January 09, 2025 4:[address] [facility] Medical Records Department [address] [place] [address] Emergency Department Summary 01/09/25 MR#: [id number] Acct: [id number] Name: DIPTI SIERRA Rep #:[id number] : [...] effects. Couple weeks ago was admitted to [facility] for day due to dehydration. Last 2 [...] Dr. Bar. Prior similar symptoms: Yes PFSH [facility] Medical History Sleep apnea Colon [...] Gastroenterology, hospitalist This note was generated with [employer] dictation software. It may contain incorrectwords, spelling, [...] 87.1 H Lymph % (Auto) 6.0 L Nicollet % (Auto) 5.3 Eos % (Auto) 0.1 [...] (excluding procedures): 30-74 minutes, Discussing w/Patient &/or Family/Test Kitchen Home Economist, Discussing w/Consultants, Arranging Admission or Transfer, Performing [...] MD [Primary Care Provider] - Print Language: [place] African Disposition Disposition: Acute Care Hospital [facility] What to do if you have Problems For any increased pain, shortness of breath, bleeding, nausea or vomiting, chestpain, or any unexpected problems, contact your Primary Care Provider. Call [facility] ([phone]) or report to the closest Emergency Room. Call 911 if necessary. 01/09/25 1646 <Electronically signed by Alexandro Dillard> Cosigner Signature (if applicable): CC: Dr. Chaitanya Puri MD ~ Signed [facility] Work Phone: 1(913) 313-905807-14-2025 Telephone encounter Note* Telephone Encounter - Dayami Puri MD - 01/09/2025 12:19 PM EDT Report called to [facility] ED. [facility]07-14-2025 Miscellaneous Notes* Telephone Encounter - Dayami Puri MD - 01/09/2025 12:19 PM EDT Report called to [facility] ED. * Telephone Encounter - Trinh Willett MA - 01/09/2025 11:20 AM EDT Patient informed and verbalized understanding. Will head over to [facility]. He states his is not home so [...] goes to a [facility] ER such as [facility], they will be able to see our records. If going to [facility], will need to fax results and office note. Let me know what he says and where he will be going so I can update the hospital. documented in this encounterHol[facility] Telephone encounter Note * Telephone Encounter - Trinh Willett MA - 01/09/2025 11:20 AM EDT Patient informed and verbalized understanding. Will head over to [facility]. He states his is not home so it'll probably afternoon when he goes. Trinh Willett MA [facility]07-14-2025 Telephone encounter Note* Telephone Encounter - Trinh [...] goes to a [facility] ER such as [facility], they will be able to see our records. If going to [facility], will need to fax results and office note. Let me know what he says and where he will be going so I can update the hospital. [facility]07-14-2025 History of Present illness Narrative* Matthew Prater RT(R) - 01/09/2025 9:50 AM EDT Radiology Service Progress Note PATIENT NAME: Dipti Sierra DATE OF SERVICE: January 09, 2025 TIME: 9:49 AM PATIENT IDENTITY VERIFICATION COMPLETED USING TWO [...] PATIENT PRESENTS WITH AN IMPLANTABLE OR ATTACHED GEOSPATIAL DEVELOPER: No RADIOLOGY DEPARTMENT: General X-ray: Exam(s) Completed: Chest X-Ray PERIPHERAL IV DATA: Not applicable SIGNED BY: RT Nelson(R) January 09, 2025 9:49 AM documented in this encounterHolmes [facility] Instructions* Patient Instructions* Dayami Puri MD - [...] daily; you may mix water and Gatorade [id number]-[id number] toboost hydration. - Complete stat blood tests [...] or signs of dehydration. documented in this encounterHolmes [facility]07-[facility]-2025 [facility]Our [facility] History of Present illness Narrative* Dayami Puri MD - 01/09/2025 8:42 AM EDT Chief Complaint Patient presents with: 6 Month Exam ER F/U: [facility] 12/20/24 nausea/vomiting, coughing, SOB Recording using anydooR software for draft documentation of the visit was discussed with the patient/authorized sales representative livestock; all questions welcomed and answered. Patient/authorized sales representative livestock agreed to proceed HPI Dipti Sierra is a 79 year old male who presents here today for ER Follow Up. Patient evaluated at [facility] on 12/20 for complaint of nausea/vomiting, [...] BRYCE (obstructive sleep apnea) Dr. Mckenzie in [place]. On CPAP Previous Surgical History PAST SURGICAL [...] by mouth two times a day. phosphorus (A-QFEJ-CFPMAGY) 250 mg tablet Take 1 tablet by [...] Vaccine(1 of 2) due on 03/08/2025 Covid-19 Vaccine(5 - season) due on 03/08/2025 Influenza Vaccine(1) due [...] - 4.00 k/uL 0.48 (L) 0.56 (L) Nicollet% % 10.0 13.0 Abs Nicollet <0.87 k/uL 0.10 0.60 Eosin% % 9.0 [...] which included preparing to see the patient, lknj-hp-[id number] patient care, completing clinical documentation, obtaining and/or reviewing separately obtained history, performing a medically appropriate examination, counseling and educating the pat ient/family/caregiver, ordering medications, tests, or procedures, communicating with other HCPs (not separately reported), independently interpreting results (not separately reported), and communicating results to the patient/family/caregiver. Dayami Puri MD documented in this encounterHol[facility]07-[facility] Telephone encounter Note * Telephone Encounter - Amy Taylor RN - 01/02/2025 11:46 AM EDT Pt's returns the call. She would like to set up his lab appt for this Thursday. Attempted with no success. Transferred to Office Machine Installer to set up appt. [facility]07-07-2025 Miscellaneous Notes* Telephone Encounter - Amy Taylor RN - 01/02/2025 11:46 AM EDT Pt's returns the call. She would like to set up his lab appt for this Thursday. Attempted with no success. Transferred to Office Machine Installer to set up appt. * Telephone Encounter [...] November with Dr. Bar. Patient was to [facility] on 12/20/2024 for vomiting, diarrhea, and Shortness of Breath. Labs completed at that time as well. Changed appointment to 40 minutes for ER follow up as well as 6 [address] check up. Please place orders for labs if desired. Morena Hart RN documented in this encounterHol[facility]07[facility] Telephone encounter Note * Telephone Encounter - Ricarda Irizarry MA - 01/02/2025 11:37 AM EDT Tried to reach pt, line just rings. No answer or voicemail. Ricarda Irizarry MA [facility]07-07-2025 Telephone encounter Note* Telephone Encounter - Dayami Puri MD - 01/02/2025 10:50 AM EDT Labs and urine testing added on to be completed at least 1-2 days prior to OV. [facility]07-07-2025 Telephone encounter Note* Telephone Encounter - Morena Hart RN - 01/02/2025 9:51 AM EDT Spouse (Dionne) calls to report that patient has an appointment with provider on Thursday January 09, 2025 for 6 month follow up and asking if provider wants any labs completed as he hasn't had any completed since November with Dr. Bar. Patient was to [facility] on 12/20/2024 for vomiting, diarrhea, and Shortness of Breath. Labs completed at that time as well. Changed appointment to 40 minutes for ER follow up as well as [address] check up. Please place orders for labs if desired. Morena Hart RN T [facility]06-26-2025 Telephone encounter Note* Telephone Encounter - Bhavna Pritchett - 12/22/2024 4:22 PM EDT Appointments canceled as requested. Jocelin is speaking with spouse now. [facility] Work Phone: 1(689) 299-897106-26-2025 Miscellaneous Notes* Telephone Encounter - Bhavna Pritchett [...] during business hours: Did you contact your [employer] Flat[employer] Driver/Provider? Patient was onhis way to the ED. Patient with any new symptom issues: No Psychosocial Risk Factors: None FOLLOW UP Patient reminded of her follow-up appointment with [facility] provider, ALLIE- patient is declining any further chemotherapy. Next [employer] outreach with patient scheduled? TBD Discussed: Patient [...] YES Jocelin Beach RN documented in this encounterHolmes [facility]06-26-2025 Telephone encounter Note * Telephone Encounter - [...] interventions. denies abdominal pain. Jocelin Beach RN [facility]06-26-2025 Telephone encounter Note* Telephone Encounter - Bhavna Pritchett - 12/22/2024 4:19 PM EDT Jocelin and Evita must have been documenting at same time. I will take care of appointments and contact spouse. [facility]06-26-2025 Telephone encounter Note* Telephone Encounter - Bhavna Pritchett - 12/22/2024 4:14 PM EDT Spouse called back. Care Coord rang busy. Please call patient. T [facility]06-26-2025 Telephone encounter Note* Telephone Encounter - Jocelin [...] this time. Thank you. Jocelin Beach RN [facility]06-25-2025 Telephone encounter Note* Telephone Encounter - Jocelin [...] during business hours: Did you contact your [employer] Driver/Provider? Patient was onhis way to the ED. Patient with any new symptom issues: No Psychosocial Risk Factors: None FOLLOW UP Patient reminded of her follow-up appointment with [facility] provider, ALLIE- patient is declining any further chemotherapy. Next [employer] Driver outreach with patient scheduled? TBD Discussed: Patient [...] next outreach appointment? YES Jocelin Beach RN [facility]06-24-2025 FtwnNCDQ-NDN-2 (AGENT OF COVID-19) RNA: Not detected INFLUENZA A RNA: Not detected INFLUENZA B RNA: Not detected RESPIRATORY SYNCYTIAL VIRUS (RSV) RNA: Not detectedMedina HospitalComment on above:Performed By: #### [id number] #### [facility] CLIA [id number] [address] [place] [id number] [id number] Telephone encounter Note* Telephone Encounter - Kimberly Diaz - 12/20/2024 8:11 AM EDT Patients spouse called to cancel appointments due to patient being very ill. Spouse stated she is taking him to [facility] now. Kimbrely Alonzolins [facility]06-24-2025 Miscellaneous Notes* Telephone Encounter - Kimberly Diaz - 12/20/2024 8:11 AM EDT Patients spouse called to cancel appointments due to patient being very ill. Spouse stated she is taking him to [facility] now. Kimberly Jean-Baptistes documented in this encounterHolmes [facility]06-23-2025 Telephone encounter Note * Telephone Encounter - [...] 815am. Jackie Noyola RN December 19, 2024 [facility] Work Phone: 1([phone]) 246-549706-23-2025 Miscellaneous Notes* Telephone Encounter - Jackie Noyola [...] RN December 19, 2024 documented in this encounterHolmes County [facility]06-20-2025 Telephone encounter Note * Telephone Encounter - [...] is clear on instructions. Sindy Luna LPN [facility]06-20-2025 Miscellaneous Notes* Telephone Encounter - Sindy Luna LPN - 12/16/2024 2:28 PM EDT Spoke with pt. Given instructions Advise 2 tabs of Lomotil alternating with 2 tabs Imodium every 6 hours until diarrhea ceases for 12 hours. If needs ED, then Deanna . Also sent info to pt. Via [...] for 12 hours. If needs ED, then Deanna. Aarti Bar DO * Telephone Encounter - Jackie Noyola RN - 12/16/2024 1:45 PM EDT [facility] Care Coordination FOLLOW-UP NOTE Patient identified by [...] RN December 16, 2024 documented in this encounterHolmes County [facility]06-20-2025 Telephone encounter Note * Telephone Encounter - Aarti Bar DO - 12/16/2024 2:09 PM EDT He is an intermediate metabolizer of irinotecan. It was dose reduced for cycle #1. Advise 2 tabs ofLomotil alternating with 2 tabs Imodium every 6 hours until diarrhea ceases for 12 hours. If needs ED, then [facility]. Aarti Bar DO [facility]06-20-2025 Telephone encounter Note* Telephone Encounter - Jackie Noyola RN - 12/16/2024 1:45 PM EDT [facility] Care Coordination FOLLOW-UP NOTE [...] 12/19/24 Jackie Noyola RN December 16, 2024 [facility] Work Phone: 1(886) 305-684606-19-2025 Telephone encounter Note* Telephone Encounter - Kimberly Diaz - 12/15/2024 11:08 AM EDT Scheduled as requested Kimberly Diaz [facility]06-19-2025 Miscellaneous Notes* Telephone Encounter - Kimberly Diaz [...] AM EDT Care Coordination Triage Note Cancer Roy Situation: Patient reports Appetite/Weight symptoms , Bowel symptoms, and Nausea/Vomiting Background: Colon w/ mets, C1 Folfori/Avastin 12/05/24 Assessment: Call to spouse, Dionne. Patient with diarrhea since Thursday. 2 episodes [...] spouse Dionne. Kimberly Diaz documented in this encounterHolmes County [facility]06-19-2025 Telephone encounter Note * Telephone Encounter - Aarti Bar DO - 12/15/2024 11:03 AM EDT Lab and beacon orders filed. [facility]06-19-2025 Telephone encounter Note* Telephone Encounter - Jackie Noyola RN - 12/15/2024 10:39 AM EDT PSS: please make appointment upstairs for labs(port)/hydration. labs pended. Melvi Noyola RN [facility]06-19-2025 Telephone encounter Note* Telephone Encounter - Jackie [...] house at this time. Melvi Noyola RN T [facility]06-19-2025 Telephone encounter Note* Telephone Encounter - Jackie Noyola RN - 12/15/2024 10:04 AM EDT Care Coordination Triage Note Cancer Roy Situation: Patient reports Appetite/Weight symptoms , Bowel symptoms, and Nausea/Vomiting Background: Colon w/ mets, C1 Folfori/Avastin 12/05/24 Assessment: Call to spouse, Dionne. Patient with diarrhea since Thursday. 2 episodes [...] Noyola RN December 15, 2024 10:04 AM [facility]06-19-2025 Telephone encounter Note* Telephone Encounter - Kimberly Diaz - 12/15/2024 9:22 AM EDT Patients spouse called statin patient has diarrhea and upset stomach and is not wanting to continuewith treatment anymore. Unable to reach clinical at this time. Please call spouse Dionne. Kimberly Diaz [facility]06-10-2025 Telephone encounter Note* Telephone Encounter - Jocelin [...] after hours number protocol. Jocelin Beach RN [facility]06-10-2025 Miscellaneous Notes* Telephone Encounter - Jocelin Beach [...] protocol. Jocelin Beach RN documented in this encounterHolmes [facility]06[facility] Telephone encounter Note * Telephone Encounter - Denae Carbone LPN - 12/05/2024 1:59 PM EDT Patient aware. Denae Carbone LPN [facility]06-09-2025 Miscellaneous Notes* Telephone Encounter - Denae Carbone LPN - 12/05/2024 1:59 PM EDT Patient aware. Denae Carbone LPN * Telephone Encounter - Aarti Bar DO - 12/05/2024 1:36 PM EDT Phosphorus is low. May explain some of the leg pain. Advise K-Phos twice daily x 1 week. Should be taken 4 hours apart from magnesium supplement. documented in this encounterHolmes [facility]06[facility] Telephone encounter Note * Telephone Encounter - Aarti Bar DO - 12/05/2024 1:36 PM EDT Phosphorus is low. May explain some of the leg pain. Advise K-Phos twice daily x 1 week. Should be taken 4 hours apart from magnesium supplement. [facility]06-09-2025 Telephone encounter Note* Telephone Encounter - Denae Carbone LPN - 12/05/2024 1:06 PM EDT Labs added on. Denae Carbone LPN [facility]06-09-2025 Miscellaneous Notes* Telephone Encounter - Denae Carbone [...] 1week. No redness/warmth noted. documented in this encounterHolmes County [facility]06-[facility] Telephone encounter Note * Telephone Encounter - Aarti Bar DO - 12/05/2024 12:58 PM EDT Check phosphorus and CK level if he is still here. [facility]06-09-2025 Telephone encounter Note* Telephone Encounter - Mary Conway RN - 12/05/2024 9:53 AM EDT Patient is requesting prescription for bilateral leg pain; pain with ambulation. Rated 6/10 aching in nature x 1week. No redness/warmth noted. [facility]06-04-2025 NoteHNO ID: [id number] Author: HEATHER AGUILAR RN Service: ? Author Type: Registered Nurse Type: Progress Notes Filed: 11/30/2024 14:49 Note Text: Held TX until 12/[address] bar. Pt is starting antibiotics.[facility]06-04-2025 History of Present illness Narrative* Heather Aguilar RN - 11/30/2024 11:40 AM EDT Held TX until 12/[address] bar. Pt is starting antibiotics. documented in this encounterHolmes County [facility]05-28-[facility] Telephone encounter Note * Telephone Encounter - Bhavna Pritchett - 11/23/2024 1:29 PM EDT Schedule updated [facility] Work Phone: 1(665) 996-318105-28-2025 Miscellaneous Notes* Telephone Encounter - Bhavna Pritchett [...] scheduled for 2 units PRBC 11/24/2024 @ [facility], [facility]. Orders faxed. Patient and lab aware. Denae Carbone LPN documented in this encounterHolmes County [facility]05-28-[facility]25 Telephone encounter Note * Telephone Encounter - Bhavna Pritchett - 11/23/2024 1:14 PM EDT Received call from [employer] with authorization # [id number] for Fulphila 6 mg every 14 days for 9 doses. Auth good from 09/30/24 to 01/27/25. [facility] Work Phone: 1(496) 804-852205-28-2025 Miscellaneous Notes* Telephone Encounter - Bhavna Pritchett - 11/23/2024 1:14 PM EDT Received call from [employer] with authorization # [id number] for Fulphila 6 mg every 14 days for 9 doses. Auth good from 09/30/24 to 01/27/25. documented in this encounterHolmes County [facility]05-28-2025 Telephone encounter Note * Telephone Encounter - Kimberly Diaz - 11/23/2024 11:53 AM EDT Scheduled next treatment with patient. Remainder will need scheduled Kimberly Diaz [facility]05-28-2025 Telephone encounter Note* Telephone Encounter - Denae Carbone LPN - 11/23/2024 11:04 AM EDT PSS- Per Dr. Bar- delay treatment X 1 week. Entire schedule will have to be adjusted. Patient is scheduled for 2 units PRBC 11/24/2024 @ [facility], [facility]. Orders faxed. Patient and lab aware. eDnae Carbone LPN [facility]05-28-2025 NoteOur [facility]05-28-[facility] History of Present illness Narrative* Vero Lauren, ALESSANDRA - 11/23/2024 10:46 AM EDT Collaborated with Dr. Bar on Dpiti' symptoms/labs. Dipti describes himself as not well [...] due to low Hg. documented in this encounterHolmes County [facility]05-19-2025 Telephone encounter Note * Telephone Encounter - Aarti Bar DO - 11/14/2024 2:20 PM EDT Yes. [facility]05-19-2025 Miscellaneous Notes* Telephone Encounter - Aarti Bar DO - 11/14/2024 2:20 PM EDT Yes. * Telephone Encounter - Bhavna Pritchett - 11/14/2024 1:52 PM EDT OK for straightback for 7/9 treatment due to change in Rhonda's template? documented in this encounterHolmes County [facility]05-19-2025 Telephone encounter Note * Telephone Encounter - Bhavna Pritchett - 11/14/2024 1:52 PM EDT OK for straightback for 7/9 treatment due to change in Rhonda's template? [facility] Work Phone: 1(973) 372-661805-19-2025 Telephone encounter Note* Telephone Encounter - Lacey [...] Lacey Nunez November 14, 2024 9:13 AM [facility]05-19-2025 Miscellaneous Notes* Telephone Encounter - Lacey Rubio [...] 14, 2024 9:13 AM documented in this encounterHolmes County [facility]05-14-2025 Telephone encounter Note * Telephone Encounter - [...] protocol. REFERRAL (RECOMMENDATION): N/A Jocelin Beach RN [facility]05-14-2025 Miscellaneous Notes* Telephone Encounter - Jocelin Beach [...] N/A Jocelin Beach RN documented in this encounterHolmes County [facility]05-14-2025 History of Present illness Narrative* Aarti Bar DO - 11/09/2024 9:30 AM EDT Oncologic problem(s): 1) Metastatic adenocarcinoma of the cecum. HPI: The patient is a 78-year-old male with a past medical history as outlined below. Had a colonoscopy in 2019 during which evidently showed one polyp. Had about 2 year history right abdominal pain. Insomnia. Had work up [facility] 02/2022. Admitted to [facility] in September 2023 with hemoglobin of 5.5 [...] Possbile PTCA/Stent; Surgeon: Baljinder Banegas MD; Location: [facility] ANALYSIS REPORTING DEVELOPER; Service: Cardiovascular CARDIAC CATHETERIZATION N/A 02/10/2022 Procedure: Coronary Angiogram; Surgeon: Baljinder Banegas MD; Location: [facility] ANALYSIS REPORTING DEVELOPER; Service: Cardiovascular CARDIAC CATHETERIZATION N/A 02/10/2022 Procedure: Instant Wave Free Ratio; Surgeon: Baljinder Banegas MD; Location: [facility] ANALYSIS REPORTING DEVELOPER; Service: Cardiovascular CARDIAC CATHETERIZATION N/A 02/10/2022 Procedure: Fractional Flow Warren; Surgeon: Baljinder Banegas MD; Location: [facility] ANALYSIS REPORTING DEVELOPER; Service: Cardiovascular COLONOSCOPY N/A 10/20/2023 Procedure: COLONOSCOPY with biopsy; Surgeon: Joe Rojas MD; Location: Endo; Service: Gastroenterology CT COLONOSCOPY 03/01/[address] COLONOSCOPY 07/16/2018 CT COLONOSCOPY EGD N/A 10/20/2023 Procedure: ESOPHAGOGASTRODUODENOSCOPY; Surgeon: Joe Rojas MD; Location: Endo; Service: Gastroenterology INSERTION SUBCUTANEOUS PORT N/A 10/21/2023 Procedure: INSERTION SUBCUTANEOUS PORT; Surgeon: Austen Hall MD; Location: Main OR; Service: [employer] KNEE ARTHROPLASTY Right 1999 DE LAPS COLECTOMY PRTL W/RMVL TERMINAL ILEUM Right [...] abdomen is nondistended. SKIN: No jaundice. LABS: NGS/biomarkers/dinkey driver mutation analyses: pMRR. KRAS mutation. HER2 [...] necessary. Aarti Bar DO documented in this encounterHolmes [facility]05-14-2025 NoteOur [facility] Of [facility]05-13-20[facility] Telephone encounter Note* Telephone Encounter - Nima Anglin LPN - 11/08/2024 8:51 AM EDT Last filled by former PCP. Rx pending. Please review and file. Nima Anglin LPN [facility]05-13-2025 Miscellaneous Notes* Telephone Encounter - Nima Anglin [...] 07, 2024 9:57 AM documented in this encounterHolmes County [facility]05-12-2025 Telephone encounter Note * Telephone Encounter - [...] Silva Chacon November 07, 2024 9:57 AM [facility]05-07-2025 History of Present illness Narrative* Luisito Carbajal RT(David) - 11/02/2024 9:00 AM EDT Radiology Service [...] PATIENT PRESENTS WITH AN IMPLANTABLE OR ATTACHED GEOSPATIAL DEVELOPER: No RADIOLOGY DEPARTMENT: CT; Exam(s) Completed: Chest Abdomen Pelvis PERIPHERAL IV DATA: power port accessed by [employer] SIGNED BY: RT Rosaura(David) November 02, 2024 12:17 PM documented in this encounterHolmes [facility]05-07-2025 NoteOur [facility] Of [facility]04-16-2025 NoteHNO ID: [id number] Author: PATRICIA OWEN RN Service: ? Author Type: Registered Nurse Type: Progress Notes Filed: 10/12/2024 14:27 Note Text: OV prior to tx. Patricia Owen RNOur Lady Of Mercy [facility]04-16-2025 History of Present illness Narrative* Patricia Owen RN - 10/12/2024 11:32 AM EDT OV prior to tx. Patricia Owen RN documented in this encounterHolmes County [facility]04-16-2025 NoteOur [facility] Of [facility]04-16-2025 History of Present illness Narrative* Aatri Bar, - 10/12/2024 10:28 AM EDT Oncologic problem(s): 1) Metastatic adenocarcinoma of the cecum. HPI: The patient is a 78-year-old male with a past medical history as outlined below. Had a colonoscopy in 2019 during which evidently showed one polyp. Had about 2 year history right abdominal pain. Insomnia. Had work up [facility] 02/2022. Admitted to [facility] in September with hemoglobin of 5.5 g/dL [...] PTCA/Stent; Surgeon: Baljinder Banegas MD; Location: [facility]EL[facility]; Service: Cardiovascular CARDIAC CATHETERIZATION N/A 02/10/2022 Procedure: Coronary Angiogram; Surgeon: Baljinder Banegas MD; Location: [facility] ANALYSIS REPORTING DEVELOPER; Service: Cardiovascular CARDIAC CATHETERIZATION N/A 02/10/2022 Procedure: Instant Wave Free Ratio; Surgeon: Baljinder Banegas MD; Location: [facility] REPORTING DEVELOPER; Service: Cardiovascular CARDIAC CATHETERIZATION N/A 02/10/2022 Procedure: Fractional Flow Warren; Surgeon: Baljinder Banegas MD; Location: [facility] ANALYSIS REPORTING DEVELOPER; Service: Cardiovascular COLONOSCOPY N/A 10/20/2023 Procedure: COLONOSCOPY with biopsy; Surgeon: Joe Rojas MD; Location: Endo; Service: Gastroenterology CT COLONOSCOPY 03/01/[address] COLONOSCOPY 07/16/2018 CT COLONOSCOPY EGD N/A 10/20/2023 Procedure: ESOPHAGOGASTRODUODENOSCOPY; Surgeon: Joe Rojas MD; Location: [facility]; Service: Gastroenterology INSERTION SUBCUTANEOUS PORT N/A 10/21/2023 Procedure: INSERTION SUBCUTANEOUS PORT; Surgeon: Austen Hall MD; Location: Main OR; Service: [employer] KNEE ARTHROPLASTY Right 1999 DE LAPS COLECTOMY PRTL W/RMVL TERMINAL ILEUM Right [...] abdomen is nondistended. SKIN: No jaundice. LABS: NGS/biomarkers/dinkey driver mutation analyses: pMRR. KRAS mutation. HER2 [...] necessary. Aarti Bar DO documented in this encounterHolmes County [facility]04-16-2025 NoteOur Lady Of [facility]cy [facility]04-16-2025 History of Present illness Narrative* Mary Cownay RN - 10/12/2024 9:52 AM EDT Patient is here for IVAD port flush/blood draw per Nursing Roy protocol. IVAD is located in left upper [...] Patient tolerated procedure well. documented in this encounterHolmes County [facility]03-31-2025 Telephone encounter Note * Telephone Encounter - Eldridge Mikayla Cohen - 09/26/2024 1:53 PM EDT Dionne called due to waiting for one week. Patient is now out of medication. Please send today. Please notify spouse Dionne once sent. [facility]03-31-2025 Miscellaneous Notes* Telephone Encounter - Mikayla Velasquez - 09/26/2024 1:53 PM EDT Dionne called [...] 19, 2024 10:50 AM documented in this encounterHolmes County [facility]03-28-2025 Telephone encounter Note * Telephone Encounter - Chencho Kovacs - 09/23/2024 10:21 AM EDT Patient is active with [employer] Medicare, LOC 80%, $0 deductible has $0 remaining, $3,350 OOP has $1,027.74 remaining. Estimate shows patient financial responsibility is $779.67 for each treatment in 2024until oop max is reached. Will call the patient's tomorrow to discuss Reference #[id number]. [facility]03-28-2025 Miscellaneous Notes* Telephone Encounter - Chencho Kovacs - 09/23/2024 10:21 AM EDT Patient is active with [employer] Medicare, LOC 80%, $0 deductible has $0 remaining, $3,350 OOP has $1,027.74 remaining. Estimate shows patient financial responsibility is $779.67 for each treatment in 2024until oop max is reached. Will call the patient's tomorrow to discuss Reference #[id number]. documented in this encounterHolmes [facility]03-24-2025 Telephone encounter Note * Telephone Encounter - [...] Italia Cohen September 19, 2024 10:50 AM [facility]03-21-2025 NoteHNO ID: [id number] Author: LAUREEN LYONS RN Service: ? Author Type: Registered Nurse Type: Progress Notes Filed: 09/16/2024 11:47 Note Text: Patient denies any pain or symptoms at this timeOur Lady Of [facility] 09-16-2024 History of Present illness Narrative* Laureen Lyons RN - 09/16/2024 11:21 AM EDT Patient denies any pain or symptoms at this time documented in this encounterHolmes [facility]03-19-2025 Telephone encounter Note * Telephone Encounter - Amparo Razo LISW - 09/14/2024 1:33 PM EDT SOCIAL WORK FOLLOW UP NOTE: [facility] Date of service: September 14, 2024 Dipti Sierra is being seen for a follow up social work visit. Today's visit includes: spouse TOPICS ADDRESSED: SHERRI met with pt's this date following OV. Pt's is inquiring about financial assistance for pt's chemotherapy regimen, reporting a $300 OOP for each treatment. SW discussed referred to the financial navigators and discussed with pt's possible assistance programs they could assist him enroll him. Pt's in agreement with referral. SHERRI referred pt via email to financial navigation this date. No other needs identified at this time. PLAN: Continue follow up as needed and referral to financial navigation F/U APPOINTMENT: PRN Assigned SW listed in Care Team tab: Yes VIRGIL Duran [place] [address]-19-2025 Miscellaneous Notes* Telephone Encounter - Amparo Razo LISW - 09/14/2024 1:33 PM EDT SOCIAL WORK FOLLOW UP NOTE: [facility] Date of service: September 14, 2024 [...] in Care Team tab: Yes JON Duran-Beverly documented in this encounterHolmes County [facility]03-19-2025 NoteOur Lady Of [facility]03-19-2025 History of Present illness Narrative* Owens Rhonda - 09/14/2024 9:21 AM EDT Oncologic problem(s): 1) Metastatic adenocarcinoma of the cecum. HPI: The patient is a 78-year-old male with a past medical history as outlined below. Had a colonoscopy in 2019 during which evidently showed one polyp. Had about 2 year history right abdominal pain. Insomnia. Had work up [facility] 02/2022. Admitted to [facility] in September with hemoglobin of 5.5 g/dL [...] Possbile PTCA/Stent; Surgeon: Baljinder Banegas MD; Location: [facility] ANALYSIS REPORTING DEVELOPER; Service: Cardiovascular CARDIAC CATHETERIZATION N/A 02/10/2022 Procedure: Coronary Angiogram; Surgeon: Baljinder Banegas MD; Location: [facility] ANALYSIS REPORTING DEVELOPER; Service: Cardiovascular CARDIAC CATHETERIZATION N/A 02/10/2022 Procedure: Instant Wave Free Ratio; Surgeon: Baljinder Banegas MD; Location: [facility] ANALYSIS REPORTING DEVELOPER; Service: Cardiovascular CARDIAC CATHETERIZATION N/A 02/10/2022 Procedure: Fractional Flow Warren; Surgeon: Baljinder Banegas MD; Location: [facility] ANALYSIS REPORTING DEVELOPER; Service: Cardiovascular COLONOSCOPY N/A 10/20/2023 Procedure: COLONOSCOPY with biopsy; Surgeon: Joe Rojas MD; Location: [facility]; Service: Gastroenterology CT COLONOSCOPY 03/01/[address] COLONOSCOPY 07/16/2018 CT COLONOSCOPY EGD N/A 10/20/2023 Procedure: ESOPHAGOGASTRODUODENOSCOPY; Surgeon: Joe Rojas MD; Location: Endo; Service: Gastroenterology INSERTION SUBCUTANEOUS PORT N/A 10/21/2023 Procedure: INSERTION SUBCUTANEOUS PORT; Surgeon: Austen Hall MD; Location: Main OR; Service: [employer] KNEE ARTHROPLASTY Right 1999 DE LAPS COLECTOMY PRTL W/RMVL TERMINAL ILEUM Right [...] note to correlate with current findings. LABS: NGS/biomarkers/dinkey driver mutation analyses: pMRR. KRAS mutation. HER2 [...] Imodium. Plan: -Imodium as needed. Rhonda Owens APRN.[employer] I spent a total of 30 minutes on the date of the service which included preparing to see the patient, [id number] patient care, completing clinical documentation, obtaining and/or [...] evaluation of this patient. documented in this encounterHolmes [facility]03-17-2025 Telephone encounter Note * Telephone Encounter - Italia lFores - 09/12/2024 10:07 AM EDT Prescription Refill [...] Italia Cohen September 12, 2024 10:08 AM [facility]03-17-2025 Miscellaneous Notes* Telephone Encounter - Italia Flores [...] 12, 2024 10:08 AM documented in this encounterHolmes County [facility]02-19-2025 NoteOur Lady Of [facility]cy [facility]02-19-2025 History of Present illness Narrative* Aarti Bar DO - 08/17/2024 9:17 AM EST Oncologic problem(s): 1) Metastatic adenocarcinoma of the cecum. HPI: The patient is a 78-year-old male with a past medical history as outlined below. Had a colonoscopy in 2018 during which evidently showed one polyp. Had about 2 year history right abdominal pain. Insomnia. Had work up [facility] 02/2022. Admitted to [facility] in September with hemoglobin of 5.5 g/dL [...] Possbile PTCA/Stent; Surgeon: Baljinder Banegas MD; Location: [facility] ANALYSIS REPORTING DEVELOPER; Service: Cardiovascular CARDIAC CATHETERIZATION N/A 02/10/2022 Procedure: Coronary Angiogram; Surgeon: Baljinder Banegas MD; Location: [facility] ANALYSIS REPORTING DEVELOPER; Service: Cardiovascular CARDIAC CATHETERIZATION N/A 02/10/2022 Procedure: Instant Wave Free Ratio; Surgeon: Baljinder Banegas MD; Location: [facility] ANALYSIS REPORTING DEVELOPER; Service: Cardiovascular CARDIAC CATHETERIZATION N/A 02/10/2022 Procedure: Fractional Flow Warren; Surgeon: Baljinder Banegas MD; Location: [facility] ANALYSIS REPORTING DEVELOPER; Service: Cardiovascular COLONOSCOPY N/A 10/20/2023 Procedure: COLONOSCOPY with biopsy; Surgeon: Joe Rojas MD; Location: Endo; Service: Gastroenterology CT COLONOSCOPY 03/01/[address] COLONOSCOPY 07/16/2018 CT COLONOSCOPY EGD N/A 10/20/2023 Procedure: ESOPHAGOGASTRODUODENOSCOPY; Surgeon: Joe Rojas MD; Location: Endo; Service: Gastroenterology INSERTION SUBCUTANEOUS PORT N/A 10/21/2023 Procedure: INSERTION SUBCUTANEOUS PORT; Surgeon: Austen Hall MD; Location: Main OR; Service: [employer] KNEE ARTHROPLASTY Right 1999 DE LAPS COLECTOMY PRTL W/RMVL TERMINAL ILEUM Right [...] abdomen is nondistended. SKIN: No jaundice. LABS: NGS/biomarkers/dinkey driver mutation analyses: pMRR. KRAS mutation. HER2 [...] necessary. Aarti Bar DO documented in this encounterHolmes County [facility]02-12-2025 History of Present illness Narrative* Luisito Carbajal RT(R) - 08/10/2024 2:00 PM EST Radiology [...] PATIENT PRESENTS WITH AN IMPLANTABLE OR ATTACHED GEOSPATIAL DEVELOPER: No RADIOLOGY DEPARTMENT: CT; Exam(s) Completed: Chest Abdomen Pelvis PERIPHERAL IV DATA: power port accessed by [employer] SIGNED BY: RT Rosaura(R) August 10, 2024 3:57 PM documented in this encounterHolmes County [facility]02-12-2025 [facility]02-12-2025 NoteOur [facility] Of [facility]02-12-2025 History of Present illness Narrative* Mary Conway RN - 08/10/2024 7:24 AM EST Patient is here for IVAD port flush/blood draw per [facility] Roy protocol. IVAD is located in left upper [...] Patient tolerated procedure well. documented in this encounterHolmes County [facility]01-27-2025 Instructions* Patient Instructions* Jannet Brady, OD - 07/25/2024 2:35 PM EST ASSESSMENT/PLAN: [...] Recommended yearly dilated exams. documented in this encounterHolmes County [facility]01-27-2025 NoteOur [facility] Of [facility]01-27-2025 History of Present illness Narrative* Jannet Brady, [...] desired. Recommended yearly dilated exams. Jannet Brady, WYATT I have confirmed and edited as necessary the relevant ophthalmic history, ROS, and the neuro exam findings as obtained by others. documented in this encounterHolmes County [facility]01-22-2025 NoteOur [facility] Of [facility]01-22-2025 History of Present illness Narrative* Aarti Bar, - 07/20/2024 9:57 AM EST Oncologic problem(s): 1) Metastatic adenocarcinoma of the cecum. HPI: The patient is a 78-year-old male with a past medical history as outlined below. Had a colonoscopy in 2019 during which evidently showed one polyp. Had about 2 year history right abdominal pain. Insomnia. Had work up [facility] 02/2022. Admitted to [facility] in September with hemoglobin of 5.5 g/dL [...] PTCA/Stent; Surgeon: Baljinder Banegas MD; Location: [facility] REPORTING DEVELOPER; Service: Cardiovascular CARDIAC CATHETERIZATION N/A 02/10/2022 Procedure: Coronary Angiogram; Surgeon: Baljinder Banegas MD; Location: [facility] ANALYSIS REPORTING DEVELOPER; Service: Cardiovascular CARDIAC CATHETERIZATION N/A 02/10/2022 Procedure: Instant Wave Free Ratio; Surgeon: Baljinder Banegas MD; Location: [facility] ANALYSIS REPORTING DEVELOPER; Service: Cardiovascular CARDIAC CATHETERIZATION N/A 02/10/2022 Procedure: Fractional Flow Warren; Surgeon: Baljinder Banegas MD; Location: [facility] REPORTING DEVELOPER; Service: Cardiovascular COLONOSCOPY N/A 10/20/2023 Procedure: COLONOSCOPY with biopsy; Surgeon: Joe Rojas MD; Location: Endo; Service: Gastroenterology CT COLONOSCOPY 03/01/[address] COLONOSCOPY 07/16/2018 CT COLONOSCOPY EGD N/A 10/20/2023 Procedure: ESOPHAGOGASTRODUODENOSCOPY; Surgeon: Joe Rojas MD; Location: Endo; Service: Gastroenterology INSERTION SUBCUTANEOUS PORT N/A 10/21/2023 Procedure: INSERTION SUBCUTANEOUS PORT; Surgeon: Austen Hall MD; Location: Main OR; Service: [employer] KNEE ARTHROPLASTY Right 1999 DE LAPS COLECTOMY PRTL W/RMVL TERMINAL ILEUM Right [...] abdomen is nondistended. SKIN: No jaundice. LABS: NGS/biomarkers/dinkey driver mutation analyses: pMRR. KRAS mutation. ASSESSMENT/PLAN: [...] necessary. Aarti Bar DO documented in this encounterHolmes County [facility]01-13-2025 NoteOur Lady Of [facility]cy [facility]01-13-2025 History of Present illness Narrative* Dayami Puri [...] BRYCE (obstructive sleep apnea) Dr. Mckenzie in [place]. On CPAP Previous Surgical History PAST SURGICAL [...] k/uL 0.64 (L) 0.73 (L) 0.64 (L) [facility]% % 14.1 10.4 20.0 Abs [facility] <0.87 k/uL 0.54 0.35 0.33 Eosin% % [...] intervention Dayami Puri MD documented in this encounterHolmes County [facility]01-08-2025 Telephone encounter Note * Telephone Encounter - [...] 0.48. Per Dr. Bar, delay 2 weeks. [facility]01-08-2025 Miscellaneous Notes* Telephone Encounter - Nury Duran, ALESSANDRA - 07/06/2024 9:17 AM EST Pt here [...] Bar, delay 2 weeks. documented in this encounterHolmes County [facility]01-02-2025 Telephone encounter Note * Telephone Encounter - Amy Pena LPN - 06/30/2024 8:30 AM EST Patient notified of results, verbalizes understanding of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 issues. Denies SOB, [...] Lymph 1.00 - 4.00 k/uL 0.43 (L) Nicollet% % 7.4 Abs Nicollet <0.87 k/uL 0.21 Eosin% % 2.5 Abs [...] RTC as scheduled for treatment Rhonda Owens APRN.[employer] I spent a total of 30 minutes on the date of the service which included preparing to see the patient, pqwa-es-bmdx patient care, completing clinical documentation, and performing [...] evaluation of this patient. documented in this encounterHolmes County Joel [facility]08-[facility] History of Present illness Narrative* Rhonda Owens - 02/16/2024 9:42 AM EDT Oncologic problem(s): 1) Metastatic adenocarcinoma of the cecum. HPI: The patient is a 78-year-old male with a past medical history as outlined below. Had a colonoscopy in 2019 during which evidently showed one polyp. Had about 2 year history right abdominal pain. Insomnia. Had work up [facility] 02/2022. Admitted to [facility] in September with hemoglobin of 5.5 g/dL [...] Possbile PTCA/Stent; Surgeon: Baljinder Banegas MD; Location: [facility] ANALYSIS REPORTING DEVELOPER; Service: Cardiovascular CARDIAC CATHETERIZATION N/A 02/10/2022 Procedure: Coronary Angiogram; Surgeon: Baljinder Banegas MD; Location: [facility] ANALYSIS REPORTING DEVELOPER; Service: Cardiovascular CARDIAC CATHETERIZATION N/A 02/10/2022 Procedure: Instant Wave Free Ratio; Surgeon: Baljinder Banegas MD; Location: [facility] ANALYSIS REPORTING DEVELOPER; Service: Cardiovascular CARDIAC CATHETERIZATION N/A 02/10/2022 Procedure: Fractional Flow Warren; Surgeon: Baljinder Banegas MD; Location: [facility] ANALYSIS REPORTING DEVELOPER; Service: Cardiovascular COLONOSCOPY N/A 10/20/2023 Procedure: COLONOSCOPY with biopsy; Surgeon: Joe Rojas MD; Location: [facility]; Service: Gastroenterology CT COLONOSCOPY 03/01/[address] COLONOSCOPY 07/16/2018 CT COLONOSCOPY EGD N/A 10/20/2023 Procedure: ESOPHAGOGASTRODUODENOSCOPY; Surgeon: Joe Rojas MD; Location: [facility]; Service: Gastroenterology INSERTION SUBCUTANEOUS PORT N/A 10/21/2023 Procedure: INSERTION SUBCUTANEOUS PORT; Surgeon: Austen Hall MD; Location: [facility]; Service: [employer] KNEE ARTHROPLASTY Right 1999 DE LAPS COLECTOMY PRTL W/RMVL TERMINAL ILEUM Right [...] any imodium, treats diarrhea with crackers and english cheese. Denies SOB, CP, palpitations. No neuropathy. [...] Lymph 1.00 - 4.00 k/uL 0.64 (L) Nicollet% % 9.6 Abs Nicollet <0.87 k/uL 0.54 Eosin% % 1.8 Abs [...] B12 -CT following 4 cycles. Rhonda Owens APRN.[employer]ER FOAM RUBBER I spent a total of 30 minutes on the date of the service which included preparing to see the patient, [id number]-dm-[id number] patient care, completing clinical documentation, and performing [...] evaluation of this patient. documented in this encounterHolmes County Joel [facility]08-09-[facility]24 Telephone encounter Note * Telephone Encounter - [...] discussed instructions for use. Jocelin Beach RN [facility]08-09-2024 Miscellaneous Notes* Telephone Encounter - Jocelin Beach [...] Beach RN - 02/05/2024 9:41 AM EDT [facility] Care Coordination FOLLOW-UP NOTE Care Coordination Plan: called patient, no answer, left a VM requesting a call back. Jocelin Beach RN February 05, 2024 * Telephone Encounter - Bhavna Pritchett - 02/04/2024 3:17 PM EDT Spouse requesting lab results from 02/01 documented in this encounterHolmes County Joel [facility]08-09-2024 Telephone encounter Note * Telephone Encounter - Jocelin Beach RN - 02/05/2024 9:41 AM EDT [facility] Care Coordination FOLLOW-UP NOTE Care Coordination Plan: called patient, no answer, left a VM requesting a call back. Jocelin Beach RN February 05, 2024 [facility]08-08-2024 Telephone encounter Note* Telephone Encounter - Bhavna Pritchett - 02/04/2024 3:17 PM EDT Spouse requesting lab results from 02/01 [facility] Work Phone: 1(661) 822-141108-06-2024 History of Present illness Narrative* Aarti Bar, - 02/02/2024 11:44 AM EDT Oncologic problem(s): 1) Metastatic adenocarcinoma of the cecum. HPI: The patient is a 78-year-old male with a past medical history as outlined below. Had a colonoscopy in 2019 during which evidently showed one polyp. Had about 2 year history right abdominal pain. Insomnia. Had work up [facility] 02/2022. Admitted to [facility] in September with hemoglobin of 5.5 g/dL [...] Possbile PTCA/Stent; Surgeon: Baljinder Banegas MD; Location: [facility] ANALYSIS REPORTING DEVELOPER; Service: Cardiovascular CARDIAC CATHETERIZATION N/A 02/10/2022 Procedure: Coronary Angiogram; Surgeon: Baljinder Banegas MD; Location: [facility] ANALYSIS REPORTING DEVELOPER; Service: Cardiovascular CARDIAC CATHETERIZATION N/A 02/10/2022 Procedure: Instant Wave Free Ratio; Surgeon: Baljinder Banegas MD; Location: [facility]EL[facility]; Service: Cardiovascular CARDIAC CATHETERIZATION N/A 02/10/2022 Procedure: Fractional Flow Warren; Surgeon: Baljinder Banegas MD; Location: [facility] REPORT[facility]EL[facility]; Service: Cardiovascular COLONOSCOPY N/A 10/20/2023 Procedure: COLONOSCOPY with biopsy; Surgeon: Joe Rojas MD; Location: End[facility]; Service: Gastroenterology CT COLONOSCOPY 03/01/[address] COLONOSCOPY 07/16/2018 CT COLONOSCOPY EGD N/A 10/20/2023 Procedure: ESOPHAGOGASTRODUODENOSCOPY; Surgeon: Joe Rojas MD; Location: Endo; Service: Gastroenterology INSERTION SUBCUTANEOUS PORT N/A 10/21/2023 Procedure: INSERTION SUBCUTANEOUS PORT; Surgeon: Austen Hall MD; Location: [facility]; Service: [employer] KNEE ARTHROPLASTY Right 1999 DE LAPS COLECTOMY PRTL W/RMVL TERMINAL ILEUM Right [...] No jaundice. LABS: Latest Ref [facility] 02/02/2024 Protein, Total 6.3 - 8.0 g/dL [...] at least 1 cycle after restarting. -Imodium fuqqzy-mvy-euccu. -Rule out C. difficile and other enteric [...] which included preparing to see the patient, npzl-zk-kwjx patient care, completing clinical documentation, obtaining and/or reviewing separately obtained history, performing a medically appropriate examination, counseling and educating the pat ient/family/caregiver, ordering medications, tests, or procedures, communicating with other HCPs (not separately reported), and communicating results to the patient/family/caregiver. Aarti Bar DO documented in this encounterHolmes County Joel [facility]08-05-2024 Telephone encounter Note * Telephone Encounter - [...] Patient reminded of her follow-up appointment with [facility] provider, Dr. Bar on 02/02/24: Yes [employer] outreach with patient scheduled? Yes, reinforced date and time Discussed: stated patient went to [facility] ED this morning d/t weakness/dehydration. Patient is [...] next outreach appointment? YES Jocelin Beach RN [facility]08-05-2024 Miscellaneous Notes* Telephone Encounter - Jocelin Beach [...] Patient reminded of her follow-up appointment with [facility] provider, Dr. Bar on 02/02/24: Yes [employer] outreach with patient scheduled? Yes, reinforced date and time Discussed: stated patient went to [facility] ED this morning d/t weakness/dehydration. Patient is [...] 1:01 PM EDT Care Coordination Triage Note [facility] Situation: Patient reports Bowel symptoms and [...] 29, 2024 1:01 PM documented in this encounterHolmes County Joel [facility]08-02-2024 Telephone encounter Note * Telephone Encounter - Jocelin Beach RN - 01/29/2024 3:06 PM EDT Addressed in a separate phone encounter. Jocelin Beach RN [facility]08-02-2024 Miscellaneous Notes* Telephone Encounter - Jocelin Beach RN - 01/29/2024 3:06 PM EDT Addressed in a separate phone encounter. Jocelin Beach RN * Telephone Encounter - Bhavna Pritchett - 01/29/2024 12:58 PM EDT Spouse called stating patient has not been feeling well since Thursday. He had a couple bouts of diarrhea and has vomited. Patient is not eating. Please advise. documented in this encounterHolmes County Joel [facility]08-02-2024 Telephone encounter Note * Telephone Encounter - Jocelin Beach RN - 01/29/2024 1:01 PM EDT Care Coordination Triage Note [facility] Situation: Patient reports Bowel symptoms and [...] Beach RN January 29, 2024 1:01 PM [facility]08-02-2024 Telephone encounter Note* Telephone Encounter - Israel CohenBhavna - 01/29/2024 12:58 PM EDT Spouse called stating patient has not been feeling well since Thursday. He had a couple bouts of diarrhea and has vomited. Patient is not eating. Please advise. [facility] Work Phone: [phone]) 943-799307-24-2024 History of Present illness Narrative* Yaima Nieto RN - 01/20/2024 9:53 AM EDT Pt. Verbally denies any change in assessment from office visit on 01/19/[address] Bar. Pt verbalagree's to treatment. documented in this encounterHolmes County Joel [facility]07-23-2024 Telephone encounter Note * Telephone Encounter - Kimberly Diaz - 01/19/2024 4:45 PM EDT Scheduled as directed Kimberly Diaz [facility]07-23-2024 Miscellaneous Notes* Telephone Encounter - Kimberly Diaz - 01/19/2024 4:45 PM EDT Scheduled as directed Kimberly Diaz * Telephone Encounter - Nury Hunter - 01/19/2024 4:31 PM EDT Check out comments:He would like to establish with PCP here if able. As scheduled. documented in this encounterHolmes County Joel [facility]07-23-2024 Telephone encounter Note * Telephone Encounter - DaleNury encarnacion - 01/19/2024 4:31 PM EDT Check out comments:He would like to establish with PCP here if able. As scheduled. [facility]07-23-2024 History of Present illness Narrative* Aarti Bar DO - 01/19/2024 4:15 PM EDT Oncologic problem(s): 1) Metastatic HPI: The patient is a 78-year-old male with a past medical history as outlined below. Had a colonoscopy in 2018 during which evidently showed one polyp. Had about 2 year history right abdominal pain. Insomnia. Had work up [facility] 02/2022. Admitted to [facility] in September with hemoglobin of 5.5 g/dL [...] Possbile PTCA/Stent; Surgeon: Baljinder Banegas MD; Location: [facility] ANALYSIS REPORTING DEVELOPER; Service: Cardiovascular CARDIAC CATHETERIZATION N/A 02/10/2022 Procedure: Coronary Angiogram; Surgeon: Baljinder Banegas MD; Location: [facility] ANALYSIS REPORTING DEVELOPER; Service: Cardiovascular CARDIAC CATHETERIZATION N/A 02/10/2022 Procedure: Instant Wave Free Ratio; Surgeon: Baljinder Banegas MD; Location: [facility] ANALYSIS REPORTING DEVELOPER; Service: Cardiovascular CARDIAC CATHETERIZATION N/A 02/10/2022 Procedure: Fractional Flow Warren; Surgeon: Baljinder Banegas MD; Location: [facility] ANALYSIS REPORTING DEVELOPER; Service: Cardiovascular COLONOSCOPY N/A 10/20/2023 Procedure: COLONOSCOPY with biopsy; Surgeon: Joe Rojas MD; Location: Endo; Service: Gastroenterology CT COLONOSCOPY 03/01/[address] COLONOSCOPY 07/16/2018 CT COLONOSCOPY EGD N/A 10/20/2023 Procedure: ESOPHAGOGASTRODUODENOSCOPY; Surgeon: Joe Rojas MD; Location: Endo; Service: Gastroenterology INSERTION SUBCUTANEOUS PORT N/A 10/21/2023 Procedure: INSERTION SUBCUTANEOUS PORT; Surgeon: Austen Hall MD; Location: [facility]; Service: [employer] KNEE ARTHROPLASTY Right 1999 DE LAPS COLECTOMY PRTL W/RMVL TERMINAL ILEUM Right [...] No jaundice. LABS: Latest Ref [facility] 01/19/2024 WBC 3.70 - 11.00 k/uL 3.66 [...] Lymph 1.00 - 4.00 k/uL 0.73 (L) Nicollet% % 11.2 Abs Nicollet <0.87 k/uL 0.41 Eosin% % 4.4 Abs [...] which included preparing to see the patient, gwuw-kb-qyjs patient care, completing clinical documentation, obtaining and/or reviewing separately obtained history, performing a medically appropriate examination, counseling and educating the pat ient/family/caregiver, ordering medications, tests, or procedures, communicating with other HCPs (not separately reported), and communicating results to the patient/family/caregiver. Aarti Bar DO documented in this encounterHolmes County Joel [facility]07-15-2024 Telephone encounter Note * Telephone Encounter - [...] after hours number protocol. Jocelin Beach RN [facility]07-15-2024 Miscellaneous Notes* Telephone Encounter - Jocelin Beach [...] RN - 01/11/2024 11:05 AM EDT CYCLE 1/ 1 POST TREATMENT CALL Today's date: January 11, 2024 Treatment Regimen: Folfox+Avastin C1D1 Date: 01/06/24 Called patient to follow-up on symptom management, there was no answer, left a VM requesting a callback from patient. Jocelin Beach RN documented in this encounterHolmes County [facility]07-15-2024 Telephone encounter Note * Telephone Encounter - Jocelin Beach RN - 01/11/2024 11:05 AM EDT CYCLE 1/ 1 POST TREATMENT CALL Today's date: January 11, 2024 Treatment Regimen: Folfox+Avastin C1D1 Date: 01/06/24 Called patient to follow-up on symptom management, there was no answer, left a VM requesting a callback from patient. Jocelin Beach RN [facility]07-10-2024 History of Present illness Narrative* Katja Diggs RN - 01/06/2024 1:08 PM EDT Urine dip completed this am did not transfer over copy sent to be scanned in to the system documented in this encounterHolmes County [facility]07-05-2024 Evaluation + Plan note* Assessment & Plan Note - Dayami Roe MD - 01/01/2024 12:51 PM EDT Associated Problem(s): 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 (Multi) Following with oncology at the [facility], to start chemotherapy in the next month. [facility] Work Phone: 1(651) 122-253507-05-2024 Evaluation + Plan note* Assessment & Plan Note - Dayami Roe MD - 01/01/2024 12:51 PM EDTAssociated Problem(s): GERD (gastroesophageal reflux disease) Currently stable. [facility] Work Phone: 1(646) 638-831107-05-2024 Miscellaneous Notes* Assessment & Plan Note - Dayami Roe MD - 01/01/2024 12:51 PM EDTAssociated Problem(s): 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 (Multi) Following with oncology at the [facility], to start chemotherapy in the next month. [...] Stable currently with rosuvastatin. documented in this [facility] Work Phone: 1(228) 894-309507-05-2024 Evaluation + Plan note* Assessment & Plan Note - Dayami Roe MD - 01/01/2024 12:50 PM EDTAssociated Problem(s): Obesity, morbid (Multi) Encouraged about diet and exercise. [facility] Work Phone: 1(509) 305-969607-05-2024 Evaluation + Plan note* Assessment & Plan [...] contact the office if any problems. [facility] Work Phone: 1(432) 630-120507-05-2024 Evaluation + Plan note* Assessment & Plan Note - Dayami Roe MD - 01/01/2024 12:50 PM EDTAssociated Problem(s): Hypertension, essential, benign Blood pressure under good control renal function stable no change. [facility] Work Phone: [phone]) 410-944507-05-2024 Evaluation + Plan note* Assessment & Plan Note - Dayami Roe MD - 01/01/2024 12:50 PM EDTAssociated Problem(s): Hyperlipidemia Stable currently with rosuvastatin. [facility] Work Phone: 1([phone]) 875-597007-05-2024 History of Present illness Narrative* Dayami Roe [...] (Multi) C18.9 Following with oncology at the [facility], to start chemotherapy in the next month. Relevant Orders Follow Up In Primary Care - Established Other Visit Diagnoses Codes Routine general medical examination at health care facility Z00.00 Relevant Orders Follow Up In Primary Care - Established documented in this encounterBl[facility] Work Phone: 1([phone]) 719-897107-05-2024 Instructions* Patient Instructions* Dayami Roe MD - 01/01/2024 8:40 AM EDT Monitor sugars around chemotherapy, use 20 units of your insulin if sugar goes over 200. documented in this encounterBl[facility] Work Phone: 1([phone]) 256-805606-28-2024 Telephone encounter Note* Telephone Encounter - Amparo Razo LISW - 12/25/2023 11:14 AM EDT Pt noted on [facility] 1st time treatment report. Pt has a non-oncology regimen. No social work followup indicated. VIRGIL Duran [facility]06-28-2024 Miscellaneous Notes* Telephone Encounter - Amparo Razo LISW - 12/25/2023 11:14 AM EDT Pt noted on [facility] 1st time treatment report. Pt has a non-oncology regimen. No social work followup indicated. VIRGIL Duran documented in this encounterHolmes County [facility]06-21-2024 Telephone encounter Note * Telephone Encounter - Aarti Bar DO - 12/18/2023 5:03 PM EDT I also sent prescription for 3 days of dexamethasone and Zofran. Aarti Bar DO [facility]06-21-2024 Miscellaneous Notes* Telephone Encounter - Aarti Bar DO - 12/18/2023 5:03 PM EDT I also sent prescription for 3 days of dexamethasone and Zofran. Aarti Bar DO * Telephone Encounter - Jackie Noyola RN - 12/18/2023 2:18 PM EDT Chemo education completed. Needs Rx for antiemetic and Emla cream. Pended. Please review. Melvi Noyola RN documented in this encounterHolmes County Joel [facility]06-21-2024 History of Present illness Narrative* Jackie Noyola RN - 12/18/2023 3:36 PM EDT Patient teaching was completed over the phone. Jackie NoyolaRN [employer] Pre Chemo Patient identified by name and date of . YES Confirmed date and time for chemotherapy ? YES Other appointments (labs, imaging) discussed? 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 YES Other topics discussed, interventions needed: na Jackie Noyola RN * Jackie Noyola RN - [...] time. Jackie Noyola RN documented in this encounterHolmes County Joel [facility]06-21-2024 Telephone encounter Note * Telephone Encounter - Jackie Noyola RN - 12/18/2023 2:18 PM EDT Chemo education completed. Needs Rx for antiemetic and Emla cream. Pended. Please review. Melvi Noyola RN [facility] Work Phone: [phone]) 827-543006-20-2024 Telephone encounter Note* Telephone Encounter - Bhavna Pritchett - 12/17/2023 1:47 PM EDT Chemo scheduled Start email sent [facility] Work Phone: [phone]) 414-756906-20-2024 Miscellaneous Notes* Telephone Encounter - Bhavna Pritchett [...] Please schedule once orders have dropped into [place]. Nury Hunter documented in this encounterHolmes County [facility]06-20-2024 Telephone encounter Note * Telephone Encounter - Bhavna Pritchett - 12/17/2023 1:28 PM EDT Scheduled iron with patient Start email sent [facility]06-19-2024 Telephone encounter Note* Telephone Encounter - Aarti Bar DO - 12/16/2023 4:54 PM EDT Can let him know he is definitely low on iron. Please schedule for 5 doses of iron sucrose. Can start that prior to starting chemotherapy. Aarti Bar DO [facility]06-18-2024 Telephone encounter Note* Telephone Encounter - Nury Hunter - 12/15/2023 3:22 PM EDT Check out comments: Begin Folfox/Avastin when able. CBC/CMP straight back D1. CBC/CMP/MAG/CEA/OV for cycle 2 and subsequent cycles. Chemo Ed scheduled for 12/18/23. Patient already has port. Please schedule once orders have dropped into [place]. Nury Hunter [facility]06-18-2024 History of Present illness Narrative* Aarti Bar [...] right abdominal pain. Insomnia[facility] September with hemoglobin of 5.5 g/dL [...] Possbile PTCA/Stent; Surgeon: Baljinder Banegas MD; Location: [facility] ANALYSIS REPORTING DEVELOPER; Service: Cardiovascular CARDIAC CATHETERIZATION N/A 02/10/2022 Procedure: Coronary Angiogram; Surgeon: Baljinder Banegas MD; Location: [facility] ANALYSIS REPORTING DEVELOPER; Service: Cardiovascular CARDIAC CATHETERIZATION N/A 02/10/2022 Procedure: Instant Wave Free Ratio; Surgeon: Baljinder Banegas MD; Location: [facility] ANALYSIS REPORTING DEVELOPER; Service: Cardiovascular CARDIAC CATHETERIZATION N/A 02/10/2022 Procedure: Fractional Flow Warren; Surgeon: Baljinder Banegas MD; Location: [facility] ANALYSIS REPORTING DEVELOPER; Service: Cardiovascular COLONOSCOPY N/A 10/20/2023 Procedure: COLONOSCOPY with biopsy; Surgeon: Joe Rojas MD; Location: [facility]; Service: Gastroenterology CT COLONOSCOPY 03/01/[address] COLONOSCOPY 07/16/2018 CT COLONOSCOPY EGD N/A 10/20/2023 Procedure: ESOPHAGOGASTRODUODENOSCOPY; Surgeon: Joe Rojas MD; Location[facility]; Service: Gastroenterology INSERTION SUBCUTANEOUS PORT N/A 10/21/2023 Procedure: INSERTION SUBCUTANEOUS PORT; Surgeon: Austen Hall MD; Location: [facility]; Service: [employer] KNEE ARTHROPLASTY Right 1999 DE LAPS COLECTOMY PRTL W/RMVL TERMINAL ILEUM Right [...] which included preparing to see the patient, koyr-en-vfti patient care, completing clinical documentation, obtaining and/or reviewing separately obtained history, performing a medically appropriate examination, counseling and educating the pat ient/family/caregiver, ordering medications, tests, or procedures, communicating with other HCPs (not separately reported), and communicating results to the patient/family/caregiver. Aarti Bar DO documented in this encounterHolmes County Joel [facility]06-03-2024 NoteHematology and Oncology Consult Note Patient Name: [...] Possbile PTCA/Stent; Surgeon: Baljinder Banegas MD; Location: [facility] ANALYSIS REPORTING DEVELOPER; Service: Cardiovascular CARDIAC CATHETERIZATION N/A 02/10/2022 Procedure: Coronary Angiogram; Surgeon: Baljinder Banegas MD; Location: [facility] ANALYSIS REPORTING DEVELOPER; Service: Cardiovascular CARDIAC CATHETERIZATION N/A 02/10/2022 Procedure: Instant Wave Free Ratio; Surgeon: Baljidner Banegas MD; Location: [facility] ANALYSIS REPORTING DEVELOPER; Service: Cardiovascular CARDIAC CATHETERIZATION N/A 02/10/2022 Procedure: Fractional Flow Warren; Surgeon: Baljinder Banegas MD; Location: [facility] ANALYSIS REPORTING DEVELOPER; Service: Cardiovascular COLONOSCOPY N/A 10/20/2023 Procedure: COLONOSCOPY with biopsy; Surgeon: Joe Rojas MD; Location: [facility]; Service: Gastroenterology CT COLONOSCOPY 03/01/[address] COLONOSCOPY 07/16/2018 CT COLONOSCOPY EGD N/A 10/20/2023 Procedure: ESOPHAGOGASTRODUODENOSCOPY; Surgeon: Joe Rojas MD; Location: [facility]; Service: Gastroenterology INSERTION SUBCUTANEOUS PORT N/A 10/21/2023 Procedure: INSERTION SUBCUTANEOUS PORT; Surgeon: Austen Hall MD; Location: [facility]; Service: Gen-Robotics KNEE ARTHROPLASTY Right 1999 DE LAPS COLECTOMY PRTL W/RMVL TERMINAL ILEUM Right [...] on file Discontinued Medicati (more content not included)...[facility] 11-30-2023 History of Present illness Narrative* Hayden Balderas, DO - 11/30/2023 12:08 PM EDT Hematology [...] Possbile PTCA/Stent; Surgeon: Baljinder Banegas MD; Location: [facility] ANALYSIS REPORTING DEVELOPER; Service: Cardiovascular CARDIAC CATHETERIZATION N/A 02/10/2022 Procedure: Coronary Angiogram; Surgeon: Baljinder Banegas MD; Location: [facility] REPORT[facility] DEVEL[facility]; Service: Cardiovascular CARDIAC CATHETERIZATION N/A 02/10/2022 Procedure: Instant Wave Free Ratio; Surgeon: Baljinder Banegas MD; Location: [facility] ANALYSIS REPORTING DEVELOPER; Service: Cardiovascular CARDIAC CATHETERIZATION N/A 02/10/2022 Procedure: Fractional Flow Warren; Surgeon: Baljinder Banegas MD; Location: [facility] ANALYSIS REPORTING DEVELOPER; Service: Cardiovascular COLONOSCOPY N/A 10/20/2023 Procedure: COLONOSCOPY with biopsy; Surgeon: Joe Rojas MD; Location: Endo; Service: Gastroenterology CT COLONOSCOPY 03/01/[address] COLONOSCOPY 07/16/2018 CT COLONOSCOPY EGD N/A 10/20/2023 Procedure: ESOPHAGOGASTRODUODENOSCOPY; Surgeon: Joe Rojas MD; Location: Endo; Service: Gastroenterology INSERTION SUBCUTANEOUS PORT N/A 10/21/2023 Procedure: INSERTION SUBCUTANEOUS PORT; Surgeon: Austen Hall MD; Location: [facility]; Service: Gen-Robotics KNEE ARTHROPLASTY Right 1999 DE LAPS COLECTOMY PRTL W/RMVL TERMINAL ILEUM Right 10/21/2023 Procedure: COLECTOMY RIGHT ROBOTIC XI AND SMALL BOWEL RESECTION WITH LYMPH NODE DISSECTION AND LIVER BIOPSY; Surgeon: Austen aHll MD; Location: [facility]; Service: Gen-Robotics Family [...] month Hayden Balderas DO documented in this [id number] Instructions* Patient Instructions* Neli Guevara RN - 11/30/2023 11:31 AM EDT Please call the office on Thursday if you decide to do treatment, , follow the prompts for Dr. Balderas's nurse. documented in this [id number] Telephone encounter Note* Telephone Encounter - Justyna Delcid LPN - 11/25/2023 4:27 PM EDT I requested PET images to be pushed. Justyna Delcid LPN [facility]05-29-2024 Miscellaneous Notes* Telephone Encounter - Justyna Delcid [...] had a PET scan done yesterday at [facility] in [place]. I told the patient we would let him know if there was a possibility of getting him in sooner, but he could speak to his PCP about going somewhere else also. I told him we could also [facility] He wanted to wait for right now. Klaudia Cohen * Telephone Encounter - Sally Caldera - 11/25/2023 2:40 PM EDT Called patient and left a vm to return our call * Telephone Encounter - Denae Carbone LPN - 11/20/2023 9:19 AM EDT Referral never received. 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 Surgery was at [facility] and some testing was done at . Dr. Roe is patient's PCP. Patient will contact his office to have referral faxed. Denae Carbone LPN * Telephone Encounter - Bhavna Pritchett - 11/19/2023 3:36 PM EDT Patient states new patient referral was faxed to us on Thursday from Dr. Roe. [facility] Telephone encounter Note * Telephone Encounter - Klaudia Lundy - 11/25/2023 3:40 PM EDT Patient called back and was scheduled for first available new patient appointment which was with for 12/15/23 @ 2:00 pm, patient is concerned maybe he should not wait this long. He stated he just had a PET scan done yesterday at [facility] in [place]. I told the patient we would let him know if there was a possibility of getting him in sooner, but he could speak to his PCP about going somewhere else also. I told him we could also try to [facility] He wanted to wait for right now. Klaudia Cohen [facility]05-29-2024 Telephone encounter Note* Telephone Encounter - Sally Caldera - 11/25/2023 2:40 PM EDT Called patient and left a vm to return our call [facility]05-24-2024 Telephone encounter Note* Telephone Encounter - Denae Carbone LPN - 11/20/2023 9:19 AM EDT Referral never received. 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 Surgery was at [facility] and some testing was done at . Dr. Roe is patient's PCP. Patient will contact his office to have referral faxed. Denae Carbone LPN [facility]05-23-2024 Telephone encounter Note* Telephone Encounter - Bhavna Pritchett - 11/19/2023 3:36 PM EDT Patient states new patient referral was faxed to us on Thursday from Dr. Roe. [facility]05-17-2024 Evaluation + Plan note* Assessment & Plan Note - Dayami Roe MD - 11/13/2023 1:05 PM EDTAssociated Problem(s): Sleep apnea Advised to use CPAP device nightly, will check a nocturnal pulse oximetry without oxygen supplementation, if O2 sat below 88% will set up for O2 bleed in at night. [facility] Work Phone: 1(290) 336-624005-17-2024 Miscellaneous Notes* Assessment & Plan Note - [...] is not happy with oncology services at [facility], will get second opinion from [facility]. * Assessment & Plan Note - Dayami Roe MD - 11/13/2023 1:04 PM EDT Associated Problem(s): Anemia Check labs today, seems like it was improving after surgery. Patient is subjectively feeling better. documented in this [facility] Work Phone: 1(168) 580-933905-17-2024 Evaluation + Plan note* Assessment & Plan Note - Dayami Roe MD - 11/13/2023 1:04 PM EDTAssociated Problem(s): 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 (Multi) Patient with presumed stage IV colorectal cancer, had surgery [facility] with hemicolectomy, is not happy with oncology services at [facility], will get second opinion from [facility]. [facility] Work Phone: 1(745) 139-437905-17-2024 Evaluation + Plan note* Assessment & Plan Note - Dayami Roe MD - 11/13/2023 1:04 PM EDTAssociated Problem(s): Anemia Check labs today, seems like it was improving after surgery. Patient is subjectively feeling better. [facility] Work Phone: 1(756) 393-273005-17-2024 History of Present illness Narrative* Dayami Roe [...] documentation was reviewed. Patient post hospitalization at [facility] from 10/18 to 10/28 for anemia and [...] pounds since last seen in June [facility] Review of Systems Constitutional: [...] is not happy with oncology services at [facility], will get second opinion from [facility]. Relevant Orders Referral to Hematology and Oncology Other Visit Diagnoses Codes Hypoxia R09.02 Try using O2 as needed through the day, pulse oximetry above 88%, check nocturnal pulse oximetry onroom air. documented in this [facility] Work Phone: 1(223) 491-233505-17-2024 Instructions* Patient Instructions* Dayami Roe MD - 11/13/2023 11:00 AM EDT Keep appointment in December, use oxygen as needed and we will check oxygen at night while asleep without oxygen. We will arrange for a second opinion for your cancer treatment documented in this [facility]Bl[facility] Work Phone: [phone]) 836-579005-15-2024 Instructions* Patient Instructions* Ignacia Patel RN - 11/11/2023 4:37 PM EDT [facility] Central Scheduling will call you to schedule your PET scan. Please be sure to follow theinstructions provided regarding preparation for scan, if applicable. Please make every effort to keep your scheduled appointment. documented in this [id number] NoteHematology and Oncology Consult Note Patient Name: [...] Possbile PTCA/Stent; Surgeon: Baljinder Banegas MD; Location: [facility] ANALYSIS REPORTING DEVELOPER; Service: Cardiovascular CARDIAC CATHETERIZATION N/A 02/10/2022 Procedure: Coronary Angiogram; Surgeon: Baljinder Banegas MD; Location: [facility] ANALYSIS REPORTING DEVELOPER; Service: Cardiovascular CARDIAC CATHETERIZATION N/A 02/10/2022 Procedure: Instant Wave Free Ratio; Surgeon: Baljinder Banegas MD; Location: [facility] ANALYSIS REPORTING DEVELOPER; Service: Cardiovascular CARDIAC CATHETERIZATION N/A 02/10/2022 Procedure: Fractional Flow Warren; Surgeon: Baljinder Banegas MD; Location: [facility] ANALYSIS REPORTING DEVELOPER; Service: Cardiovascular COLONOSCOPY N/A 10/20/2023 Procedure: COLONOSCOPY with biopsy; Surgeon: Joe Rojas MD; Location: Endo; Service: Gastroenterology CT COLONOSCOPY 03/01/[address] COLONOSCOPY 07/16/2018 CT COLONOSCOPY EGD N/A 10/20/2023 Procedure: ESOPHAGOGASTRODUODENOSCOPY; Surgeon: Joe Rojas MD; Location: Endo; Service: Gastroenterology INSERTION SUBCUTANEOUS PORT N/A 10/21/2023 Procedure: INSERTION SUBCUTANEOUS PORT; Surgeon: Austen Hall MD; Location: [facility]; Service: Gen-Robotics KNEE ARTHROPLASTY Right 1999 DE LAPS COLECTOMY PRTL W/RMVL TERMINAL ILEUM Right [...] following system(s) were reviewed (more content not included)...[facility]05-15-2024 History of Present illness Narrative* Hayden Balderas, DO - 11/11/2023 4:06 PM EDT Hematology [...] Possbile PTCA/Stent; Surgeon: Baljinder Banegas MD; Location: [facility] ANALYSIS REPORTING DEVELOPER; Service: Cardiovascular CARDIAC CATHETERIZATION N/A 02/10/2022 Procedure: Coronary Angiogram; Surgeon: Baljinder Banegas MD; Location: [facility] ANALYSIS REPORTING DEVELOPER; Service: Cardiovascular CARDIAC CATHETERIZATION N/A 02/10/2022 Procedure: Instant Wave Free Ratio; Surgeon: Baljinder Banegas MD; Location: [facility] ANALYSIS REPORTING DEVELOPER; Service: Cardiovascular CARDIAC CATHETERIZATION N/A 02/10/2022 Procedure: Fractional Flow Warren; Surgeon: Baljinder Banegas MD; Location: [facility] ANALYSIS REPORTING DEVELOPER; Service: Cardiovascular COLONOSCOPY N/A 10/20/2023 Procedure: COLONOSCOPY with biopsy; Surgeon: Joe Rojas MD; Location: Endo; Service: Gastroenterology CT COLONOSCOPY 03/01/[address] COLONOSCOPY 07/16/2018 CT COLONOSCOPY EGD N/A 10/20/2023 Procedure: ESOPHAGOGASTRODUODENOSCOPY; Surgeon: Joe Rojas MD; Location: Endo; Service: Gastroenterology INSERTION SUBCUTANEOUS PORT N/A 10/21/2023 Procedure: INSERTION SUBCUTANEOUS PORT; Surgeon: Austen Hall MD; Location: [facility]; Service: Gen-Robotics KNEE ARTHROPLASTY Right 1999 DE LAPS COLECTOMY PRTL W/RMVL TERMINAL ILEUM Right [...] nocturia once nightly. CV no hx of [place] GI: black tarry stools for some time [...] not Hayden Balderas DO documented in this [id number] NotePatient presents for follow up s/p robotic [...] report. AUTHENTICATED BY AUSTEN HALL, ON 11/09/2023 10:52:31[facility]05-13-2024 History of Present illness Narrative* Austen Hall [...] adenocarcinoma. See synoptic report. documented in this [id number] History of Present illness Narrative* Candy Bright [...] Vaca CNP - 10/29/2023 9:41 AM EDT [facility] and [facility] DAILY PROGRESS NOTE DIAGNOSIS [...] segment 5 liver wedge resection. Left-sided subclavian Tygnow-N-Gdyd placement with fluoroscopic guidance Dr. Hall TODAY'S [...] Standing Balance - Static: Stand by assist Tester Vibrator Equipment - Standing Static: wheeled walker Loss of Balance- Standing Static: (none) Standing Balance - Dynamic: Stand by assist, Contact guard assist Tester Vibrator Equipment - Standing Dynamic: wheeled walker Loss of Balance- Standing Dynamic: (none) Transfers Sit to Stand: Stand by assist Tester Vibrator Equipment: wheeled walker, BUE Skilled Intervention Provided: verbal [...] [place]. 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.) Level of [place] - ADLs: Independent Level of [place] - Homemaking: (Spouse completed cooking and laundry [...] Standing Balance - Static: Stand by assist Tester Vibrator Equipment - Standing Static: wheeled walker Loss of Balance- Standing Static: (none) Standing Balance - Dynamic: Stand by assist, Contact guard assist Tester Vibrator Equipment - Standing Dynamic: wheeled walker Loss of Balance- Standing Dynamic: (none) Transfers Sit to Stand: Contact guard assist Tester Vibrator Equipment: wheeled walker, BUE Additional Transfer Trial 2: Yes Sit to Stand Trial 2: Stand by assist Tester Vibrator Equipment Trial 2: wheeled walker, BUE Skilled Intervention [...] and call light in reach. Access Code: [email or web address] URL: [email or web address] Date: 10/28/2023 Prepared by: Daria Box Exercises [...] [place]. 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 * Ja Castro, AAKASH - 10/28/2023 9:22 AM EDT [facility] and [facility] DAILY PROGRESS NOTE DIAGNOSIS [...] segment 5 liver wedge resection. Left-sided subclavian Abuawl-P-Pwoc placement with fluoroscopic guidance Dr. Hall TODAY'S [...] one week for staple removal * Arias Franco, - 10/28/2023 9:15 AM EDT [facility] [place]GR[place] Assessment and Plan Dipti Sierra [...] is resolving Discharge Location: Home, likely with [facility] Quality Measures DVT Prophylaxis: SCDs Pierce [...] coloration Psych: normal mood and affect * Raulsheng Wilfred Sabrina, AAKASH - 10/27/2023 12:24 PM EDT [facility] and [facility] DAILY PROGRESS NOTE DIAGNOSIS [...] segment 5 liver wedge resection. Left-sided subclavian Oerger-P-Jhaw placement with fluoroscopic guidance Dr. Hall TODAY'S [...] date 10/28 from surgical standpoint * Daria Herndon, CREATIVE TECHNOLOGIST - 10/27/2023 8:25 AM EDT Physical Therapy [...] Standing Balance - Static: Stand by assist Tester Vibrator Equipment - Standing Static: wheeled walker Loss of Balance- Standing Static: (none with ww) Standing Balance - Dynamic: Contact guard assist, Stand by assist, with device Tester Vibrator Equipment - Standing Dynamic: wheeled walker Loss of Balance- Standing Dynamic: intermittent Transfers Sit to Stand: Stand by assist Tester Vibrator Equipment: wheeled walker, BUE Additional Transfer Trial 2: Yes Sit to Stand Trial 2: Stand by assist Tester Vibrator Equipment Trial 2: wheeled walker, BUE Additional Transfer Trial 3: Yes Sit to Stand Trial 3: Stand by assist Tester Vibrator Equipment Trial 3: wheeled walker, BUE Skilled Intervention [...] walker Prior Level of Function Level of [place] - Transfers/Ambulation/Mobility: Independent with household ambulation, Independent with functional transfers, Independent with community ambulation (no AD) Level of [place] - ADLs: Independent Driving: Patient drives Vocational: [...] Franco, DO - 10/27/2023 8:19 AM EDT [facility] PROGRESS NOTE Assessment and Plan Dipti Sierra [...] Oncology Inpatient Follow-up 10/26/2023 Lencho Rodriguez MD [facility] Patient: Dipti Sierra Date of : 1945 [...] Possbile PTCA/Stent; Surgeon: Baljinder Banegas MD; Location: [facility] ANALYSIS REPORTING DEVELOPER; Service: Cardiovascular CARDIAC CATHETERIZATION N/A 02/10/2022 Procedure: Coronary Angiogram; Surgeon: Baljinder Banegas MD; Location: [facility] ANALYSIS REPORTING DEVELOPER; Service: Cardiovascular CARDIAC CATHETERIZATION N/A 02/10/2022 Procedure: Instant Wave Free Ratio; Surgeon: Baljinder Banegas MD; Location: [facility] ANALYSIS REPORTING DEVELOPER; Service: Cardiovascular CARDIAC CATHETERIZATION N/A 02/10/2022 Procedure: Fractional Flow Warren; Surgeon: Baljinder Banegas MD; Location: [facility] ANALYSIS REPORTING DEVELOPER; Service: Cardiovascular COLONOSCOPY N/A 10/20/2023 Procedure: COLONOSCOPY with biopsy; Surgeon: Joe Rojas MD; Location: [facility]; Service: Gastroenterology CT COLONOSCOPY 03/01/[address] COLONOSCOPY 07/16/2018 CT COLONOSCOPY EGD N/A 10/20/2023 Procedure: ESOPHAGOGASTRODUODENOSCOPY; Surgeon: Joe Rojas MD; Location: [facility]; Service: Gastroenterology INSERTION SUBCUTANEOUS PORT N/A 10/21/2023 Procedure: INSERTION SUBCUTANEOUS PORT; Surgeon: Austen Hall MD; Location: [facility]; Service: Gen-Robotics KNEE ARTHROPLASTY Right 1999 DE LAPS COLECTOMY PRTL W/RMVL TERMINAL ILEUM Right [...] No Nutrition Related Allergies noted Cultural or Zoroastrianism Dietary Needs :No Cultural or Zoroastrianism Dietary needs noted Patient/family comments: deferred: remains [...] 1 gm/kg Sally Vallejo RD * Louisa Vaca CNP - 10/26/2023 9:18 AM EDT [facility] DAILY PROGRESS NOTE DIAGNOSIS [...] segment 5 liver wedge resection. Left-sided subclavian Jabzqx-R-Lwvd placement with fluoroscopic guidance Dr. Hall TODAY'S [...] Arias Franco, - 10/26/2023 8:34 AM EDT [facility] PROGRESS NOTE Assessment and Plan Dipti Sierra [...] Standing Balance - Static: Stand by assist Tester Vibrator Equipment - Standing Static: wheeled walker Loss of Balance- Standing Static: (none) Standing Balance - Dynamic: Contact guard assist, Stand by assist, with device Tester Vibrator Equipment - Standing Dynamic: wheeled walker Loss of Balance- Standing Dynamic: intermittent Bed Mobility Rolling: (pt up in recliner upon arrival) Transfers Sit to Stand: Stand by assist Tester Vibrator Equipment: wheeled walker, BUE Additional Transfer Trial 2: Yes Sit to Stand Trial 2: Stand by assist Tester Vibrator Equipment Trial 2: wheeled walker, BUE Skilled Intervention [...] walker Prior Level of Function Level of [place] - Transfers/Ambulation/Mobility: Independent with household ambulation, Independent with functional transfers, Independent with community ambulation (no AD) Level of [place] - ADLs: Independent Driving: Patient drives Vocational: [...] Oncology Inpatient Follow-up 2023 Lencho Rodriguez MD [facility] Patient: Dipti Sierra Date of : 1945 [...] Maddox MD - 2023 11:37 AM EDT [facility] PROGRESS NOTE Assessment and Plan Dipti Sierra [...] segment 5 liver wedge resection. Left-sided subclavian Oxdpgz-T-Deaq placementwith fluoroscopic guidance The patient feels very [...] Maddox MD - 10/24/2023 11:14 AM EDT [facility] PROGRESS NOTE Assessment and Plan Dipti Sierra [...] Oncology Inpatient Follow-up 10/24/2023 Lencho Rodriguez MD [facility] Patient: Dipti Sierra Date of : 1945 [...] Castro, AAKASH - 10/24/2023 8:17 AM EDT [facility] DAILY PROGRESS NOTE DIAGNOSIS [...] segment 5 liver wedge resection. Left-sided subclavian Pmpstg-V-Bikx placement with fluoroscopic guidance Dr. Hall TODAY'S [...] Nicolas MD - 10/23/2023 4:38 PM EDT [facility] PROGRESS NOTE Assessment and Plan Dipti Sierra [...] Oncology Inpatient Follow-up 10/23/2023 Lencho Rodriguez MD [facility] Patient: Dipti Sierra Date of : 1945 [...] path and special studies. * Daria Herndon, CREATIVE TECHNOLOGIST - 10/23/2023 12:45 PM EDT Physical Therapy [...] - Static: Contact guard assist, with device Tester Vibrator Equipment - Standing Static: wheeled walker Loss of Balance- Standing Static: (none with ww) Standing Balance - Dynamic: Contact guard assist, with device Tester Vibrator Equipment - Standing Dynamic: wheeled walker Loss of [...] Transfers Sit to Stand: Contact guard assist Tester Vibrator Equipment: wheeled walker, BUE Additional Transfer Trial 2: Yes Sit to Stand Trial 2: Contact guard assist Tester Vibrator Equipment Trial 2: wheeled walker, BUE Skilled Intervention [...] walker Prior Level of Function Level of [place] - Transfers/Ambulation/Mobility: Independent with household ambulation, Independent with functional transfers, Independent with community ambulation (no AD) Level of [place] - ADLs: Independent Driving: Patient drives Vocational: [...] Physical Therapy Plan of Care. * Candy Brihgt LISW - 10/23/2023 10:20 AM EDT Care [...] Vaca CNP - 10/23/2023 7:37 AM EDT [facility] DAILY PROGRESS NOTE DIAGNOSIS [...] segment 5 liver wedge resection. Left-sided subclavian Bpmkmm-J-Hebz placement with fluoroscopic guidance Dr. Hall TODAY'S [...] Oncology Inpatient Follow-up 10/22/2023 Lencho Rodriguez MD [facility] Patient: Dipti Sierra Date of : 1945 [...] Vaca, AAKASH - 10/22/2023 8:18 AM EDT [facility] DAILY PROGRESS NOTE DIAGNOSIS [...] segment 5 liver wedge resection. Left-sided subclavian Bjivtt-Y-Ffsb placement with fluoroscopic guidance Dr. Hall TODAY'S [...] Nicolas MD - 10/22/2023 7:27 AM EDT [facility] PROGRESS NOTE Assessment and Plan Dipti Sierra [...] Gamez, AAKASH - 10/21/2023 8:27 PM EDT [facility] POST-OP CHECK Mr. Dipti [...] to the 60s earlier per nursing, start [facility] CXR this evening with vascular [...] Nicolas MD - 10/21/2023 4:04 PM EDT [facility] PROGRESS NOTE Assessment and Plan Dipti Sierra [...] 5' 7 Wt 104.3 kg (230 lb) ShB575% BMI 36.02 kg/m Physical Examination General Appearance: [...] Spent in Direct Patient Care: 15 Narrative: Freezing Machine Operator visited with the patient while rounding on the unit, Mr. Simon was sitting up in bed and his daughter was sitting in a chair. Mr. Simon spoke very little but he did indicate that felt okay, Mr. Simon also stated that he was being discharged, but that he appreciated the visit. Freezing Machine Operator provided spiritual and emotional support to the patient and his family. Patients Response to Pastoral Care: Appeared to be well-engaged Planning for Future Visits: PRN 10/20/23 1645 Visit Background Visit With Patient;Daughter Visit By Staff Freezing Machine Operator Visit Progression Introduction Visit Requested By Freezing Machine Operator Initiated Visit Source Freezing Machine Operator Initiated Visit Type Inpatient;Rounding Visit Circumstances and Events Routine Visit Visit Length (minutes) 15 Patient's Response to Pastoral Care Appeared to be well-engaged Visit Planning PRN Spiritual Assessment Not assessed during visit Zoroastrianism Assessment Not assessed during this visit Family assessment provided? Assessed during this visit Family Assessment Relationship to Patient Daughter April Giraldo MDiv. Staff Freezing Machine Operator [address] [address] On-call Freezing Machine Operator: * Venessa Nicolas MD - 10/20/2023 10:54 AM EDT [facility]GR[place] Assessment and Plan Dipti Sierra [...] RN - 10/19/2023 11:34 AM EDT 10/19/23 7771 Patient Information Source of Information Patient;Children;Significant Other [...] have a PCP? Yes (Dayami Roe MD [phone]) Interventions Home Health Care (Denies any in [...] for possible discharge needs. documented in this [id number] NoteS DISCHARGE SUMMARY -- [facility] Dipti Sierra Admitted: 10/19/2023 Discharge Date: 10/29/23 [...] 10/30/23. Quantity: 30 tablet naloxone 4 mg/actuation [place] Commonly known as: NARCAN Administer 1 spray [...] MG tablet Commonly know (more content not included)...[facility]05-02-2024 Hospital course Narrative* Arias Franco, - 10/29/2023 1:06 PM EDT [facility] DISCHARGE SUMMARY -- [facility] Dipti Sierra Admitted: 10/19/2023 Discharge Date: 10/29/23 [...] 10/30/23. Quantity: 30 tablet naloxone 4 mg/actuation [place] Commonly known as: NARCAN Administer 1 spray [...] 10-12.5 mg per tablet Commonly known as: ABY REGALADOSTCOURTNEY Physician(s) Follow Up: Dayami Roe MD [address] [facility] [address] Schedule an appointment as soon as possible for a visit in 2 week(s) for a hospital follow-up Austen Hall MD [address] [address] Schedule an appointment as soon as possible for a visit in 1 week(s) for staple removal and postop follow-up Lencho Rodriguez MD [facility] [place] [facility] [address] Schedule an appointment as soon as possible [...] on 10/29/23, 1:06 PM documented in this [id number] Miscellaneous Notes* Plan of Care - Jannet [...] injury Outcome: Partially Met * Plan of Betsy - Jannet Perez RN - 10/24/2023 10:40 [...] determine Thank you, Glenny BIRCHN, RN Clinical Coach Builder [phone] (cell) After business hours you may contact Kenna Baptistecarlton at [phone] (Weekdays until 10 PM and weekends 8 [...] MIVF * Plan of Care - Kenroy Garcia RN - 10/21/2023 6:38 PM EDT Problem: Actual [...] determine Thank you, Glenny BIRCHN, RN Clinical Coach Builder [phone] (cell) After business hours you may contact Kenna Russo at [phone] (Weekdays until 10 PM and weekends 8 [...] determine Thank you, Glenny BIRCHN, RN Clinical Coach Builder [phone] (cell) After business hours you may contact Kenna Russo at [phone] (Weekdays until 10 PM and weekends 8 AM - 10 PM) * Brief Op Note - Austen Hall MD - 10/21/2023 5:18 PM EDT Brief Post Operative Note Patient Name: Dipti Sierra : 1945 (77 y.o.) Date of Service: 10/21/2023 CSN: [id number] Procedure(s): COLECTOMY RIGHT ROBOTIC XI AND SMALL BOWEL RESECTION WITH LYMPH NODE DISSECTION AND LIVER BIOPSY INSERTION SUBCUTANEOUS PORT Pre-Operative Diagnoses: * Cecal mass suspected colon cancer Post-Operative Diagnoses: * Same as Pre-Op Diagnosis Surgeon(s) and Role: * Austen Hall MD - Primary Anesthesiologist: Polo Pereira MD SIDE LASTER TACK: Ty Betancourt CRNA Anesthesiologist Box Estimator: Niles Chapman AA Toe Stripper: Tiffanie Reese RN Fundraising Specialist: Mckayla Mancilla TECHNOLOGIST Toe Stripper Relief: Brunilda Miranda RN Scrub Person: Stefania Guerrier RN Chief Dietitian: Germain Henderson PSA Operative findings: Tumor appears [...] Distance TISSUE EXAM Austen Hall MD 10/21/2023 1653 Implant(s): Implant Name Type Inv. Item Serial No. Road Grader Operator Lot No. LRB No. Used Action PORT 8FR POWER ISP ATTACHABLE SINGLE LUMEN - SNA PORT 8FR POWER ISP ATTACHABLE SINGLE LUMEN NA BARDACCES [id number] Left 1 Implanted Drain(s): Urethral Catheter Latex 16 Fr. (Active) Wound(s): Wound 10/21/23 x5 trocar sites Surgical Wound Abdomen LUQ (Active) Wound Closure Sutures;[place] 10/19/23 0001 Wound 10/21/23 1 Surgical Wound Abdomen Lower;Medial (Active) Wound Closure Sutures;[place] 10/19/23 0001 Wound 10/21/23 1 Surgical Wound Clavicle Left (Active) Wound Closure Sutures;Surgical Adhesive 10/19/23 0001 Austen Hall MD 10/21/2023 5:18 PM * Quick Note - Clementina Wilson RN - 10/21/2023 1:18 PM EDT Charting of Eulalia Hardy reviewed * Op Note - Austen Hall MD - 10/21/2023 12:47 PM EDT DIPTI SIERRA [id number] 1945 DATE 10/21/2023 OPERATIVE REPORT SURGEON AUSTEN HALL MD PREOPERATIVE DIAGNOSIS 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 PROCEDURES 1. Robotic right hemicolectomy with central mesenteric lymph node dissection. 2. Robotic small bowel resection. 3. Robotic segment 5 liver wedge resection. 4. Left-sided subclavian Equnkc-O-Qfko placement with fluoroscopic guidance. ANESTHESIA General endotracheal. [...] 1 additional firing of the stapler. A okut-en-hbrl isoperistaltic anastomosis was then created using the [...] of the small bowel segment and a edsc-sh-kgii antiperistaltic anastomosis was able to be created. [...] condition. AUSTEN HALL MD D 10/21/2023 17:46 [id number] T 10/21/2023 22:17 MICHELLE/CAITLIN cc: DAYAMI ROE MD * Quick Note [...] right colectomy and port placement tomorrow with Dr. Hall, JV at midnight. * CDI Query - Venessa Nicolas MD - 10/20/2023 6:53 PM EDT Noted BMI of 36. Weight: 230 # Height: 5'7'' Clinical Indicators: PMHX: Type 2 diabetes, Dyslipidemia, Hypertension Please provide an associated diagnosis related to the abnormal BMI. For Example: Obesity Overweight BMI is not clinically significant Other (please specify) Unable to determine Thank you, Glenny CANO, RN Clinical Coach Builder [phone] (cell) After business hours you may contact Kenna Russo at [phone] (Weekdays until 10 PM and weekends 8 [...] note for complete details. documented in this [id number] [facility] TRAUMA and [facility] DAILY PROGRESS NOTE DIAGNOSIS [...] segment 5 liver wedge resection. Left-sided subclavian Lvzzrf-B-Puqv placement with fluoroscopic guidance Dr. Hall TODAY'S [...] code AUTHENTICATED BY LOUISA VACA, ON 10/29/2023 09:45:[address] [place], [place] 7[address]0105-01-2024 Consult note* Alcira Guzman RN - 10/28/2023 [...] pain. The patient's home setup is a senior geotechnical engineer, family / caregiver support is a senior geotechnical engineer for return to prior level of function. The patient's education level is a senior geotechnical engineer, compliance is a senior geotechnical engineer, awareness of own capacity and performance is a senior geotechnical engineer to return to prior level of function. 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; SpO2 noted to be 87- 93% when checked during session.) Therapy Precautions Orthotic Devices: No Weight Bearing Status: WFL General Rehab Precautions: Abdominal Activity as Tolerated Cognition Overall Cognitive Status: Within Functional Limits Arousal/Alertness: Appropriate responses to stimuli Orientation Level: Oriented to place, Oriented to time, Oriented to person (Knew birthdate.) Attention: Attends to quiet environment Hearing Status: WFL Social Interaction: WFL ADL Grooming: Stand by assist (Cue for [...] (Independent w/stand to sit transition at chair.) Tester Vibrator Equipment: (None) (Independent w/dynamic sitting at chair level [...] [place]. 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.) Level of [place] - ADLs: Independent Level of [place] - Homemaking: (Spouse completed cooking and laundry tasks.) Driving: Patient drives Vocational: Retired Past Medical History: Diagnosis Date Diabetes mellitus (HCC) Hyperlipidemia Hypertension Sleep apnea has a CPAP Past Surgical History: Procedure Laterality Date ANKLE ARTHROSCOPY W/ OPEN REPAIR Left 1967 APPENDECTOMY 1961 CARDIAC CATHETERIZATION N/A 02/10/2022 Procedure: Left Heart Cath Possbile PTCA/Stent; Surgeon: Baljinder Banegas MD; Location: [facility] ANALYSIS REPORTING DEVELOPER; Service: Cardiovascular CARDIAC CATHETERIZATION N/A 02/10/2022 Procedure: Coronary Angiogram; Surgeon: Baljinder Banegas MD; Location: [facility] ANALYSIS REPORTING DEVELOPER; Service: Cardiovascular CARDIAC CATHETERIZATION N/A 02/10/2022 Procedure: Instant Wave Free Ratio; Surgeon: Baljinder Banegas MD; Location: [facility] ANALYSIS REPORTING DEVELOPER; Service: Cardiovascular CARDIAC CATHETERIZATION N/A 02/10/2022 Procedure: Fractional Flow Warren; Surgeon: Baljinder Banegas MD; Location: [facility] REPORTING DEVELOPER; Service: Cardiovascular COLONOSCOPY N/A 10/20/2023 Procedure: COLONOSCOPY with biopsy; Surgeon: Joe Rojas MD; Location: Endo; Service: Gastroenterology CT COLONOSCOPY 03/01/[address] COLONOSCOPY 07/16/2018 CT COLONOSCOPY EGD N/A 10/20/2023 Procedure: ESOPHAGOGASTRODUODENOSCOPY; Surgeon: Joe Rojas MD; Location: Endo; Service: Gastroenterology INSERTION SUBCUTANEOUS PORT N/A 10/21/2023 Procedure: INSERTION SUBCUTANEOUS PORT; Surgeon: Austen Hall MD; Location: Main OR; Service: Gen-Robotics KNEE ARTHROPLASTY Right 1999 DE LAPS COLECTOMY PRTL W/RMVL TERMINAL ILEUM Right [...] - Static: Contact guard assist, with device Tester Vibrator Equipment - Standing Static: wheeled walker Bed Mobility Not assessed Transfers Sit to Stand: Contact guard assist Tester Vibrator Equipment: BUE, wheeled walker Additional Transfer Trial 2: Yes Sit to Stand Trial 2: Contact guard assist Tester Vibrator Equipment Trial 2: BUE Additional Transfer Trial 3: Yes Sit to Stand Trial 3: Contact guard assist Tester Vibrator Equipment Trial 3: wheeled walker, BUE Gait/Locomotion Gait [...] walker Prior Level of Function Level of [place] - Transfers/Ambulation/Mobility: Independent with household ambulation, Independent with functional transfers, Independent with community ambulation (no AD) Level of [place] - ADLs: Independent Driving: Patient drives Vocational: [...] PTCA/Stent; Surgeon: Baljinder Banegas MD; Location: [facility] REPORTING DEVELOPER; Service: Cardiovascular CARDIAC CATHETERIZATION N/A 02/10/2022 Procedure: Coronary Angiogram; Surgeon: Baljinder Banegas MD; Location: [facility]NAL[facility] REPORTING DEVELOPER; Service: Cardiovascular CARDIAC CATHETERIZATION N/A 02/10/2022 Procedure: Instant Wave Free Ratio; Surgeon: Baljinder Banegas MD; Location: [facility]NAL[facility]IS REPORTING DEVELOPER; Service: Cardiovascular CARDIAC CATHETERIZATION N/A 02/10/2022 Procedure: Fractional Flow [place]; Surgeon: Baljinder Banegas MD; Location: [facility] ANALYSIS REPORTING DEVELOPER; Service: Cardiovascular COLONOSCOPY N/A 10/20/2023 Procedure: COLONOSCOPY with biopsy; Surgeon: Joe Rojas MD; Location: [facility]; Service: Gastroenterology CT COLONOSCOPY 03/01/[address] COLONOSCOPY 07/16/2018 CT COLONOSCOPY EGD N/A 10/20/2023 Procedure: ESOPHAGOGASTRODUODENOSCOPY; Surgeon: Joe Rojas MD; Location: [facility]; Service: Gastroenterology INSERTION SUBCUTANEOUS PORT N/A 10/21/2023 Procedure: INSERTION SUBCUTANEOUS PORT; Surgeon: Austen Hall MD; Location: Main OR; Service: Gen-Robotics KNEE ARTHROPLASTY Right 1999 DE LAPS COLECTOMY PRTL W/RMVL TERMINAL ILEUM Right [...] see CM assessment completed by Liliana Zaldivar RNmanager of construction while pt was in the emergency dept. [...] home health services.. Pt's spouse as teachable health care consultant. Pt does not have association with [facility] Agency on Aging such as [facility] [employer]/ [employer].. DME: As listed Living Arrangements: Spouse/significant [...] ONCOLOGY Consult completed on 10/20/23 * Juan Tinajero, MIXER FOAM RUBBER - 10/20/2023 5:43 PM EDT [facility] SURGICAL HISTORY & PHYSICAL/CONSULTATION [...] past surgical history of appendectomy arrived to [facility] emergency department on 10/18 with complaints of [...] Possbile PTCA/Stent; Surgeon: Baljinder Banegas MD; Location: [facility] ANALYSIS REPORTING DEVELOPER; Service: Cardiovascular CARDIAC CATHETERIZATION N/A 02/10/2022 Procedure: Coronary Angiogram; Surgeon: Baljinder Banegas MD; Location: [facility] ANALYSIS REPORTING DEVELOPER; Service: Cardiovascular CARDIAC CATHETERIZATION N/A 02/10/2022 Procedure: Instant Wave Free Ratio; Surgeon: Baljinder Banegas MD; Location: [facility] ANALYSIS REPORTING DEVELOPER; Service: Cardiovascular CARDIAC CATHETERIZATION N/A 02/10/2022 Procedure: Fractional Flow [place]; Surgeon: Baljinder Banegas MD; Location: [facility] ANALYSIS REPORTING DEVELOPER; Service: Cardiovascular CT COLONOSCOPY 03/01/2020 CT COLONOSCOPY [...] Oncology Inpatient Consult 10/20/2023 Lencho Rodriguez MD [facility] Patient: Dipti Sierra Date of : 1945 [...] for the surgeon to talk to the backup operator about the need for any diverting procedure [...] PTCA/Stent; Surgeon: Baljinder Banegas MD; Location: [facility]NAL[facility]IS REPORTING DEVELOPER; Service: Cardiovascular CARDIAC CATHETERIZATION N/A 02/10/2022 Procedure: Coronary Angiogram; Surgeon: Baljinder Banegas MD; Location: [facility] ANAL[facility]IS REPORTING DEVELOPER; Service: Cardiovascular CARDIAC CATHETERIZATION N/A 02/10/2022 Procedure: Instant Wave Free Ratio; Surgeon: Baljinder Banegas MD; Location: [facility] ANAL[facility]IS REPORTING DEVELOPER; Service: Cardiovascular CARDIAC CATHETERIZATION N/A 02/10/2022 Procedure: Fractional Flow [place]; Surgeon: Baljinder Banegas MD; Location: [facility] ANALYSIS REPORTING DEVELOPER; Service: Cardiovascular CT COLONOSCOPY 03/01/2020 CT COLONOSCOPY [...] Consult 10/19/2023 Gayla De La Paz CNP [facility] Patient: Dipti Sierra Date of : 1945 [...] Possbile PTCA/Stent; Surgeon: Baljinder Banegas MD; Location: [facility] ANALYSIS REPORTING DEVELOPER; Service: Cardiovascular CARDIAC CATHETERIZATION N/A 02/10/2022 Procedure: Coronary Angiogram; Surgeon: Baljinder Banegas MD; Location: [facility] ANALYSIS REPORTING DEVELOPER; Service: Cardiovascular CARDIAC CATHETERIZATION N/A 02/10/2022 Procedure: Instant Wave Free Ratio; Surgeon: Baljinder Banegas MD; Location: [facility]NAL[facility]IS REPORTING DEVELOPER; Service: Cardiovascular CARDIAC CATHETERIZATION N/A 02/10/2022 Procedure: Fractional Flow [place]; Surgeon: Baljinder Banegas MD; Location: [facility] ANALYSIS REPORTING DEVELOPER; Service: Cardiovascular CT COLONOSCOPY 03/01/2020 CT COLONOSCOPY [...] interviewed and examined the patient. I review [place] nurse practitioner consultation report and agree with [...] EGD and colonoscopy tomorrow documented in this [id number] Note Attestation signed by Austen Hall MD [...] me in one week for staple removal [facility] DAILY PROGRESS NOTE DIAGNOSIS [...] segment 5 liver wedge resection. Left-sided subclavian Uxfaiu-S-Pdzi placement with fluoroscopic guidance Dr. Hall TODAY'S [...] Intake/Output Summary (Last 24 hours) at 10/28/2023 09 Last data filed at 10/28/2023 0800 Gross [...] code AUTHENTICATED BY JA CASTRO ON 10/28/2023 09:24:[address] [place] [address] 10-28-2023 NoteS PROGRESS NOTE Assessment and Plan [...] is resolving Discharge Location: Home, likely with [facility] Quality Measures DVT Prophylaxis: SCDs Pierce [...] and affect AUTHENTICATED BY ARIAS FRANCO, ON 10/28/2023 13:18:02[facility]04-30-2024 Note Attestation signed by Austen Hall MD at 10/27/2023 2:55 PM Seen and examined agree with below. Doing well. Reports 3 good bowel movements now and resolution of nausea. Has tolerated clear liquids. Sore. AFVS Labs reviewed, HGB stable. Abdomen softer less distended, aTTP Incisions CDI - clear liquids today - if tolerating advance tomorrow - tentative DC date 10/28 from surgical standpoint [facility] DAILY PROGRESS NOTE DIAGNOSIS [...] segment 5 liver wedge resection. Left-sided subclavian Oomkyw-X-Jvnz placement with fluoroscopic guidance Dr. Hall TODAY'S [...] *Code Status: full code AUTHENTICATED BY AUSTEN HLAL, ON 10/27/2023 14:55:42[facility] 10-27-2023 NoteS PROGRESS NOTE Assessment and Plan Dipti [...] affect AUTHENTICATED BY ARIAS FRANCO, ON 10/27/2023 13:17:58[facility]04-29-2024 NoteOncology Inpatient Follow-up 10/26/2023 Lencho Rodriguez MD [facility] Patient: Dipti Sierra Date of : 1945 [...] 3 to 4 weeks AUTHENTICATED BY LENCHO RODRIGUEZ ON 10/26/2023 16:56:[address] [place] [address] 10-26-2023 Note Attestation signed by Austen Hall [...] experience emesis then would recommend NGT replacement [facility] DAILY PROGRESS NOTE DIAGNOSIS [...] segment 5 liver wedge resection. Left-sided subclavian Lpndyh-P-Akie placement with fluoroscopic guidance Dr. Hall TODAY'S [...] code AUTHENTICATED BY AUSTEN HALL, ON 10/26/2023 14:56:00[facility] 10-26-2023 NoteS PROGRESS NOTE Assessment and Plan [...] affect AUTHENTICATED BY ARIAS FRANCO, ON 10/26/2023 16:07:[address] [place], [place] 0536304-26-2024 Note* Addendum Note - Ty Betancourt CRNA - 10/23/2023 9:09 AM EDT Addendum created 10/23/23908 by Ty Betancourt CRNA Intraprocedure Meds edited, Orders acknowledged in Narrator [facility] Work Phone: 1(840) 743-482104-26-2024 Miscellaneous Notes* Addendum Note - Ty Betancourt CRNA - 10/23/2023 9:09 AM EDT Addendum created 10/23/23908 by Ty Betancourt CRNA Intraprocedure Meds edited, Orders acknowledged in Narrator documented in this [id number] Anesthesiology Postoperative evaluation and management note* Anesthesia Postprocedure Evaluation - Polo Pereira MD - 10/21/2023 5:49 PM EDT [...] Patient has satisfactorily recovered from his anesthetic. [facility] Work Phone: 1(803) 430-457004-24-2024 Surgical operation note* Anesthesia Postprocedure Evaluation - Polo Pereira MD - 10/21/2023 5:49 PM EDT [...] medication administration * Anesthesia Preprocedure Evaluation - Polo Pereira MD - 10/21/2023 11:26 AM EDT [...] anemia Other Negative: smoker documented in this [id number] Procedure anesthesia Narrative * Procedure Summary Procedure Name Responsible Anesthesiologist Anesthesia Start Time Anesthesia Stop Time COLECTOMY RIGHT ROBOTIC XI AND SMALL BOWEL RESECTION WITH LYMPH NODE DISSECTION AND LIVER BIOPSY (Right: Abdomen) Polo Pereira MD 10/21/23 1219 10/21/23 1730 Events [...] Surgical Wou; Abdomen LUQ; Surgical Jackie; Sutures, [place]; 4x4, medipore 10/21/23 1340 by Tiffanie Reese [...] ETT Placement Date: 09/28 10/20; Placement Time: 123 (created via procedure documentation); Mask Ventilation: Ventilated by mask; Type: Cuffed, Oral; Tube Size: 7.5 mm; Grade View: 1; Insertion Attempts: 1; Removal Date: 10/21/23; Removal Time: 171710/21/23 1236 by Niles Chapman AA 10/21/231717 by Ty Betancourt CRNA Feeding Tube 10/21/23; 1700; Righ t nare; 10/22/23; 1005; Per order 10/21/23 1700 by Sandi Echols, ALESSANDRA 10/22/23 1005 by Sandi Kendrick RN documented in this encounter [id number] Anesthesiology procedure note* Anesthesia Procedure Notes - [...] Darin Jarquin *See MAR for medication administration [facility] Work Phone: 1(690) 178-226704-24-2024 Anesthesiology Preoperative evaluation and management note* Anesthesia Preprocedure Evaluation - Polo Pereira MD - 10/21/2023 11:26 AM EDT [...] type 2 diabetes anemia Other Negative: smoker [id number] History and physical note* Austen Hall MD - 10/21/2023 8:25 AM EDT INTERVAL HISTORY AND PHYSICAL Patient Name: Dipti Sierra Admit Date: [id number] MR #: [id number] : 1945 The H&P has been reviewed and the patient has been examined. I have re-assessed the patient andnoted the following changes: see note from today It is appropriate to proceed with the planned procedure. Austen Hall MD 10/21/2023 8:25 AM Source Note - Juan Tinajero CNP - 10/20/2023 5:43 PM EDT [facility] SURGICAL HISTORY & PHYSICAL/CONSULTATION [...] past surgical history of appendectomy arrived to [facility] emergency department on 10/18 with complaints of [...] Possbile PTCA/Stent; Surgeon: Baljinder Banegas MD; Location: [facility] ANALYSIS REPORTING DEVELOPER; Service: Cardiovascular CARDIAC CATHETERIZATION N/A 02/10/2022 Procedure: Coronary Angiogram; Surgeon: Baljinder Banegas MD; Location: [facility] ANALYSIS REPORTING DEVELOPER; Service: Cardiovascular CARDIAC CATHETERIZATION N/A 02/10/2022 Procedure: Instant Wave Free Ratio; Surgeon: Baljinder Banegas MD; Location: [facility] ANALYSIS REPORTING DEVELOPER; Service: Cardiovascular CARDIAC CATHETERIZATION N/A 02/10/2022 Procedure: Fractional Flow [place]; Surgeon: Baljinder Banegas MD; Location: [facility] ANALYSIS REPORTING DEVELOPER; Service: Cardiovascular CT COLONOSCOPY 03/01/2020 CT COLONOSCOPY [...] العراقي MD - 10/19/2023 11:02 AM EDT [facility] [place] [facility] [place]ICAL -- [facility] Patient Name: Dipti Sierra : 1945 MR #: [id number] Admit Date: 10/19/2023 Physicians: Dayami Roe MD [...] Possbile PTCA/Stent; Surgeon: Baljinder Banegas MD; Location: [facility] ANALYSIS REPORTING DEVELOPER; Service: Cardiovascular CARDIAC CATHETERIZATION N/A 02/10/2022 Procedure: Coronary Angiogram; Surgeon: Baljinder Banegas MD; Location: [facility] ANALYSIS REPORTING DEVELOPER; Service: Cardiovascular CARDIAC CATHETERIZATION N/A 02/10/2022 Procedure: Instant Wave Free Ratio; Surgeon: Baljinder Banegas MD; Location: [facility] ANALYSIS REPORTING DEVELOPER; Service: Cardiovascular CARDIAC CATHETERIZATION N/A 02/10/2022 Procedure: Fractional Flow [place]; Surgeon: Baljinder Banegas MD; Location: [facility] ANALYSIS REPORTING DEVELOPER; Service: Cardiovascular CT COLONOSCOPY 03/01/[address] COLONOSCOPY 07/16/2018 CT COLONOSCOPY KNEE ARTHROPLASTY Right 1999 Family History Family History Problem Relation Age [...] normal mood and affect documented in this [id number] Nurse Note* Vianey Mabry RN - 10/20/2023 [...] 1:36 PM EDT Vitals and monitoring by anesthesia/SIDE LASTER TACK. See their charting. documented in this [id number] Emergency department Note* Geraldine Robledo RN - [...] AM EDTAssociated Order(s): EKG 12-lead; Critical Care [facility] EMERGENCY DEPARTMENT - Emergency Medicine Attending Note: NAME: Dipti Sierra 77 y.o. CSN: [id number] PCP: Dayami Roe MD History: Chief Complaint: [...] All other components within normal limits Narrative: [facility] Laboratory Services has implemented the eGFR [...] Normal OCCULT BLOOD STOOL IMMUNOASSAY (CRUZITO [facility]ANT[facility]L[place] ONLY) CBC AND DIFFERENTIAL Narrative: The following orders were created for panel order CBC w/ Diff. Procedure Abnormality Status --------- ------ CBC Auto Differential[[id number]] Abnormal Final result CBC and Diff Morphology[[id number]] Final result Please view results for these [...] Stool guaiac test was obtained, with Tushar, MACHINE SETTER SHEET METAL, chaperoning, and is found to be negative. [...] subacute, or chronic. I spoke with the [facility] Doc Hose Mender/Unassigned Medicine Service, Dr. العراقي, and the patient will beaccepted onto their inpatient service., Intermediate unit. ED MIPS (if empty, not applicable): Coding Elements: Medical Decision Making Clinical Impression: 1. Acute respiratory failure with hypoxia (HCC) 2. Anemia, unspecified type 3. SOB (shortness of breath) Disposition: hospitalize to CVSD/ISD (Intermediate) Garrick Caruso M.D. Attending Physician [facility] EMERGENCY DEPARTMENT 10/19/2023 Portions of this note [...] Possbile PTCA/Stent; Surgeon: Baljinder Banegas MD; Location: [facility] ANALYSIS REPORTING DEVELOPER; Service: Cardiovascular CARDIAC CATHETERIZATION N/A 02/10/2022 Procedure: Coronary Angiogram; Surgeon: Baljinder Banegas MD; Location: [facility] ANALYSIS REPORTING DEVELOPER; Service: Cardiovascular CARDIAC CATHETERIZATION N/A 02/10/2022 Procedure: Instant Wave Free Ratio; Surgeon: Baljinder Banegas MD; Location: [facility] REPORTING DEVELOPER; Service: Cardiovascular CARDIAC CATHETERIZATION N/A 02/10/2022 Procedure: Fractional Flow Warren; Surgeon: Baljinder Banegas MD; Location: [facility] ANALYSIS REPORTING DEVELOPER; Service: Cardiovascular CT COLONOSCOPY 03/01/[address] COLONOSCOPY 07/16/2018 CT COLONOSCOPY KNEE ARTHROPLASTY Right 2000 FAM. Hx: Family History Problem Relation Age [...] Call light within reach. documented in this [id number] History of Present illness Narrative* Dayami Roe [...] Primary [facility] - [facility]: [phone]) 634-519204-01-2024 Instructions* Patient Instructions* Dayami Roe MD - 09/28/2023 11:40 AM EDT Stop potassium and stay off of lisinopril for now, try to get some blood pressure readings outside of the office, goal to be less than 140/90 [facility] Work Phone: [phone]) [phone] Evaluation + Plan note* Assessment & Plan [...] months from now. It was advised about [facility] policy for prescribing controlled medicines and he agrees to comply. [facility] Work Phone: [phone]) [phone] Evaluation + Plan note* Assessment & Plan Note - Dayami Roe MD - 07/03/2023 12:38 PM ESTAssociated Problem(s): Neurogenic claudication due to lumbar spinal stenosis As she seems to be improved currently. [facility] Work Phone: [phone] Evaluation + Plan note* Assessment & Plan Note - Dayami Roe MD - 07/03/2023 12:38 PM ESTAssociated Problem(s): GERD (gastroesophageal reflux disease) Currently stable. [facility] Work Phone: [phone] Evaluation + Plan note* Assessment & Plan Note - Dayami Roe MD - 07/03/2023 12:38 PM ESTAssociated Problem(s): Obesity, morbid (CMS/HCC) Encouraged about diet and exercise. [facility] Work Phone: [phone] Miscellaneous Notes* Assessment & Plan Note - [...] months from now. It was advised about [facility] policy for prescribing controlled medicines and he [...] mellitus, type 2) (CMS/HCC) A1c testing stable, tolerating medication, is not [...] Labs stable no change. documented in this [facility] Work Phone: [phone]) 205-821401-05-2024 Evaluation + Plan note* Assessment & Plan Note - Dayami Roe MD - 07/03/2023 12:37 PM ESTAssociated Problem(s): DM2 (diabetes mellitus, type 2) ([facility]) A1c testing stable, tolerating medication, is not been able to afford GLP-1 or SGLT2's [facility] Work Phone: [phone] Evaluation + Plan note* Assessment & Plan Note - Dayami Roe MD - 07/03/2023 12:37 PM ESTAssociated Problem(s): Hypertension, essential, benign Blood pressure under good control renal function stable no change. [facility] Work Phone: [phone] Evaluation + Plan note* Assessment & Plan Note - Dayami Roe MD - 07/03/2023 12:37 PM ESTAssociated Problem(s): Hyperlipidemia Labs stable no change. [facility] Work Phone: [phone] History of Present illness Narrative* Dayami Roe MD - 07/03/2023 8:20 AM [...] - Established DM2 (diabetes mellitus, type 2) ([facility]) Current Assessment & Plan A1c testing stable, [...] months from now. It was advised about [facility] policy for prescribing controlled medicines and he [...] Primary Care - Established [facility] Work Phone: [phone]) 480-380501-05-2024 Instructions* Patient Instructions* Dayami Roe MD - 07/03/2023 8:20 AM EST Use the Ambien at night as needed [facility] Work Phone: [phone]) 775-822111-20-2023 History of Present illness Narrative* David Argueta MD - 05/18/2023 3:00 PM EST General Cardiology Returning Patient Clinic Visit [facility], Heart & Vascular 05/18/2023 David Argueta MD [address] [place] [id number] [facility], physician's office 05/18/2023 Patient: Dipti Sierra Date of : 1945 (77 y.o.) PCP: Dayami Roe MD Chief Complaint: Follow-up (Yearly previous Hoffman/ ) Date of Service: 05/18/2023 Assessment and Plan: 1. Dyspnea, unspecified type 2. Coronary artery disease involving [place] coronary artery of [place] heart without angina pectoris 3. Fatigue, unspecified [...] should further issues arise David Argueta MD, [facility] Non-Invasive Cardiology [facility] P:[phone] F:[phone] History of Present Illness: Dipti Sierra is [...] Possbile PTCA/Stent; Surgeon: Baljinder Banegas MD; Location: [facility] ANALYSIS REPORTING DEVELOPER; Service: Cardiovascular CARDIAC CATHETERIZATION N/A 02/10/2022 Procedure: Coronary Angiogram; Surgeon: Baljinder Banegas MD; Location: [facility] ANALYSIS REPORTING DEVELOPER; Service: Cardiovascular CARDIAC CATHETERIZATION N/A 02/10/2022 Procedure: Instant Wave Free Ratio; Surgeon: Baljinder Banegas MD; Location: [facility] ANALYSIS REPORTING DEVELOPER; Service: Cardiovascular CARDIAC CATHETERIZATION N/A 02/10/2022 Procedure: Fractional Flow Warren; Surgeon: Baljinder Banegas MD; Location: [facility] ANALYSIS REPORTING DEVELOPER; Service: Cardiovascular KNEE ARTHROPLASTY Right 1999 Family [...] 01/28/2022 Lab Results Component Value Date ALT 08/20/2017 AST 14 08/20/2017 Lab Results Component Value Date WBC 5.99 01/28/2022 HGB 11.9 (L) 01/28/2022 HCT 38.9 (L) 01/28/2022 MCV 88.0 01/28/2022 EXTMCV 89.1 08/20/2017 PLT 349 01/28/2022 RBC 4.42 (L) 01/28/2022 No results found for: CHOL, LDLCALC, LDLDIRECT, TRIG, HDL No results found for: HGBA1C Lab Results Component Value Date ALT 21 08/20/2017 AST 14 08/20/2017 The ASCVD Risk score (Ben GONZALEZ, et al., 2019) failed to calculate for the following reasons: The valid total cholesterol range is 130 to 320 mg/dL documented in this [id number] Instructions* Patient Instructions* David Argueta MD - 05/18/2023 10:41 AM EST How to Contact your Care Team: Provider: Dr. David Argueta MD Clinic Nurse: Amna Smith RN REFILLS: When in need for refills please call your care team or the office at [phone]. Please include medication name, pharmacy name, and [...] See if that helps documented in this [id number] Evaluation + Plan note* Assessment & Plan Note - Dayami Roe MD - 12/31/2022 1:50 PM EDT Associated Problem(s): Sleep apnea Patient has been using their CPAP nightly and is experiencing restful sleep, no morning headaches, no witnessed snoring, and notices a difference if they do not use the device. [facility] Work Phone: [phone]) [phone] Evaluation + Plan note* Assessment & Plan Note - Dayami Roe MD - 12/31/2022 1:50 PM EDTAssociated Problem(s): Insomnia disorder Patient unable to get relief with trazodone, has used zolpidem in the past, try low-dose nortriptyline 10 mg at at bedtime to try to help with sleep and help improve pain relief. [facility] Work Phone: [phone]) 668-584807-05-2023 Evaluation + Plan note* Assessment & Plan Note - Dayami Roe MD - 12/31/2022 1:50 PM EDTAssociated Problem(s): Neurogenic claudication due to lumbar spinal stenosis No change with current treatment, able to accomplish daily activities without difficulty. [facility] Work Phone: [phone]) [phone] Evaluation + Plan note* Assessment & Plan Note - Dayami Roe MD - 12/31/2022 1:50 PM EDTAssociated Problem(s): GERD (gastroesophageal reflux disease) Currently stable with medication no change. [facility] Work Phone: [phone] Miscellaneous Notes* Assessment & Plan Note - [...] Associated Problem(s): DM2 (diabetes mellitus, type 2) ([facility]) A1c testing stable, continue with current medication, [...] Dayami Roe MD - 12/31/2022 1:48 PM EDT Associated Problem(s): Obesity, morbid (CMS/HCC) Advised about diet and exercise. documented in this [facility] Work Phone: [phone]) 151-555307-05-2023 Evaluation + Plan note* Assessment & Plan Note - Dayami Roe MD - 12/31/2022 1:49 PM EDTAssociated Problem(s): DM2 (diabetes mellitus, type 2) (CMS/HCC) A1c testing stable, continue with current medication, again advised about diet and exercise. [facility] Work Phone: [phone]) [phone] Evaluation + Plan note* Assessment & Plan Note - Dayami Roe MD - 12/31/2022 1:49 PM EDTAssociated Problem(s): Hypertension, essential, benign Blood pressures within goal, renal function electrolytes are all normal. [facility] Work Phone: [phone]) 298-362307-05-2023 Evaluation + Plan note* Assessment & Plan Note - Dayami Roe MD - 12/31/2022 1:49 PM EDTAssociated Problem(s): Hyperlipidemia Cholesterol levels are within range, no change with medication. [facility] Work Phone: [phone] Evaluation + Plan note* Assessment & Plan Note - Dayami Roe MD - 12/31/2022 1:48 PM EDTAssociated Problem(s): Obesity, morbid (CMS/HCC) Advised about diet and exercise. [facility] Work Phone: [phone]) [phone] History of Present illness Narrative* Dayami Roe [...] - Established DM2 (diabetes mellitus, type 2) ([facility]) - Primary A1c testing stable, continue with [...] Primary Care - Established Obesity, morbid (CMS/HCC) Advised about diet and exercise. Other Visit Diagnoses Prostate cancer screening Relevant Orders Prostate Specific Antigen, Screen documented in [facility] Work Phone: [phone] Instructions* Patient Instructions* Dayami Roe MD - 12/31/2022 9:20 AM EDT Try using nortriptyline at night for sleep, if not helping in the next month, call. documented in [facility] Work Phone: [phone]) [phone] Evaluation + Plan note* Assessment & Plan [...] underlying coronary artery disease and diabetes condition. [id number] Miscellaneous Notes* Assessment & Plan Note - [...] additional concerns or changes. documented in this [id number] Evaluation + Plan note* Assessment & Plan [...] he has any additional concerns or changes. [id number] Instructions* Patient Instructions* Brooke Villeda MA - 05/27/2022 8:25 AM EST You can reach Dr Hoffman's nurse Hayden Russell RN, at [phone]. If unable to reach us please leave [...] listed below please call the office at [phone] and ask to speak to the schedulers to make an appointment. *If you made an -appointment prior to leaving the office today disregard this message. To cancel or reschedule your office visit or testing please call [phone]. If you need to cancel it must be 24 hours prior to that appt. Thank you. ....If you were seen in the [place] office today. If any testing was ordered a appraiser irrigation tax from [facility] will call you to schedule your testing. If you do not hear from a appraiser irrigation tax after a couple of days please call the office at [phone] and ask to speak to a appraiser irrigation tax. documented in this [id number] History of Present illness Narrative* Dipti Hoffman MD - 05/27/2022 8:20 AM EST General Cardiology Clinic Follow-up Heart & Vascular [facility] 05/27/2022 Dipti Hoffman MD [address] [facility] [phone] Patient: Dipti Sierra Date of : 1945 [...] Final Result by Interface, Lab Results In Russell [facility]is (02/10/2022 [id number]) Cardiac Catheterization Final Result by Baljinder Banegas MD (02/10/2022 [id number]) HOME Medications: Patient's Medications New Prescriptions No [...] Physical Exam Vitals reviewed. documented in this [id number] History of Present illness Narrative* On a [...] to make sure of the imaging. [facility] Work Phone: [phone]) 372-582608-26-2022 History of Present illness Narrativenot sleeping well at night, 1.5 weeks with pain in RUQ, getting worse, radiates to side and back, comes and goes, sensitive to touch, ate some chili last night, made worse, used some OTC AA with somehelp, had a hard time sleeping last night, drank some mild with help, no burping or belching, worseafter eatingMP-[facility] Work Phone: [phone]) [phone] History of Present illness NarrativeJames comes to office after cutting finger on Thursday w/ a table saw. Was seen @ [facility] and woundwas cleansed & he received his Tetanus shot. Minimal pain. No drainage. No F/C.[facility] Work Phone: [phone]) [phone] History of Present illness Narrative* No low [...] change in exercise tolerance * to see Javascript Web Developer on January 28 at [facility] * went to ER at [place] after, gave MDI to use, has not used * no cough or wheeze, some numbness in left hand at times * Patient has been using their CPAP nightly and is experiencing restful sleep, no morning headaches, no witnessed snoring, and notices a difference if they do not use the device. [facility] Work Phone: evaluation note* Diagnosis Dyspnea, unspecified type [facility] Dyspnea, unspecified type- Primary Coronary artery disease involving [place] coronary artery of [place] heart without angina pectoris documented in this [...] (CMS/HCC) Morbid obesity documented in this encounter [facility] Work Phone: Evaluation note* Diagnosis Dyspnea, unspecified type- Primary Coronary artery disease involving [place] coronary artery of [place] heart without angina pectoris Fatigue, unspecified type [...] or maintaining sleep documented in this encounter [facility] Work Phone: Evaluation note* Diagnosis Hypertension, essential, benign Essential hypertension, benign documented in this encounter [facility] Work Phone: Evaluation note* Diagnosis Adenocarcinoma of colon (HCC)- Primary Malignant neoplasm of colon, unspecified site [facility]* Diagnosis Acute anemia- Primary Anemia, unspecified type SOB (shortness of breath) Shortness of breath Acute respiratory failure with hypoxia (HCC) S/P right hemicolectomy Other postprocedural status Mass of cecum Unspecified disorder of intestine documented in this encounter [facility] note* Diagnosis 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) [facility]* Diagnosis Adenocarcinoma of colon (HCC)- Primary Malignant neoplasm of colon, unspecified site [facility]* Diagnosis 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 (Multi)- Primary Type 2 diabetes mellitus without complication, without long-term current use of insulin (Multi) Mixed hyperlipidemia Gastroesophageal reflux disease without esophagitis Esophageal reflux Hypertension, essential, benign Essential hypertension, benign Anemia, unspecified type Hypoxia Hypoxemia Obstructive sleep apnea syndrome Obstructive sleep apnea (adult) (pediatric) documented in this encounter [facility] Work Phone: Evaluation note* Diagnosis Adenocarcinoma of colon (HCC)- Primary Malignant neoplasm of colon, unspecified site Simple chronic bronchitis (HCC) Simple chronic bronchitis Morbid obesity due to excess calories (HCC) documented in this encounter [facility] note* Diagnosis 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) Malignant neoplasm of colon, unspecified site Colon cancer metastasized to lung (HCC) Malignant neoplasm of colon, unspecified site [facility]* Diagnosis Cancer of cecum (HCC)- Primary 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) Malignant neoplasm of colon, unspecified site Colon cancer metastasized to lung (HCC) Malignant neoplasm of colon, unspecified site [facility]* Diagnosis Iron deficiency anemia due to chronic blood loss- Primary 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 [facility]* Diagnosis Encounter for education- Primary Counseling NOS Metastatic colon cancer to liver (HCC) Malignant neoplasm of colon, unspecified site [facility] Diagnosis Iron malabsorption- [...] colon, unspecified site documented [facility] this [facility]* Diagnosis Iron malabsorption- [...] [facility] Iron deficiency anemia due to [...] cystitis Dehydration [facility]* Diagnosis Cancer of cecum (HCC)- Primary 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 (HCC) Malignant neoplasm of colon, unspecified site Metastatic colon cancer to liver (HCC) Malignant neoplasm of colon, unspecified site Acute cystitis without hematuria Acute cystitis [facility]* Diagnosis 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 (HCC) Malignant neoplasm of colon, unspecified site Metastatic colon cancer to liver (HCC) Malignant neoplasm of colon, unspecified site [facility] Colon cancer metastasized to lung (HCC)- Primary Malignant neoplasm of colon, unspecified site 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) [facility] Colon cancer metastasized to [...] colon, unspecified site [facility]* Diagnosis Encounter for medical examination [...] single bacterial disease [facility]* Diagnosis Cancer of cecum (HCC)- [...] B12 deficiency type documented [facility] this encounter [facility]* Diagnosis Cancer of cecum (HCC)- Primary 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 (HCC) Malignant neoplasm of colon, unspecified site Metastatic colon cancer to liver (HCC) Malignant neoplasm of colon, unspecified site documented in this encounter [facility]* Diagnosis Cancer of cecum (HCC)- Primary 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 (HCC) Malignant neoplasm of colon, unspecified site Metastatic colon cancer to liver (HCC) Malignant neoplasm of colon, unspecified site Anemia due to vitamin B12 deficiency, unspecified B12 deficiency type [facility]* Diagnosis Cancer of [...] and blood-forming organs documented [facility]* Diagnosis Cancer of cecum (HCC)- Primary 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 (HCC) Malignant neoplasm of colon, unspecified site Metastatic colon cancer to liver (HCC) Malignant neoplasm of colon, unspecified site documented [facility] encounter [facility] Diagnosis Metastatic colon cancer to liver (HCC)- Primary Malignant neoplasm of colon, unspecified site 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 (HCC) Malignant neoplasm of colon, unspecified site Anemia due to vitamin B12 deficiency, unspecified B12 deficiency type [facility] Diagnosis Cancer of cecum (HCC)- Primary 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 (HCC) Malignant neoplasm of colon, unspecified site Metastatic colon cancer to liver (HCC) Malignant neoplasm of colon, unspecified site documented [facility] encounter [facility] Cancer of cecum (HCC)- Primary [...] induced diarrhea Diarrhea documented in this encounter [facility]* Diagnosis Cancer of cecum (HCC)- Primary 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) Malignant neoplasm of colon, unspecified site Colon cancer metastasized to lung (HCC) Malignant neoplasm of colon, unspecified site documented [facility] encounter [facility] Diagnosis Cancer of cecum (HCC)- Primary 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 (HCC) Malignant neoplasm of colon, unspecified site Metastatic colon cancer to liver (HCC) Malignant neoplasm of colon, unspecified site documented in this encounter [facility]* Diagnosis Type 2 diabetes mellitus without [...] other site (Multi) documented in this encounter [facility] Work Phone: Evaluation note* Diagnosis Metastatic colon cancer to liver (HCC)- Primary Malignant neoplasm of colon, unspecified site 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 (HCC) Malignant neoplasm of colon, unspecified site Anemia due to vitamin B12 deficiency, unspecified B12 deficiency type documented in this encounter [facility]* Diagnosis Cancer of cecum (HCC)- Primary 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 (HCC) Malignant neoplasm of colon, unspecified site Metastatic colon cancer to liver (HCC) Malignant neoplasm of colon, unspecified site [facility] this encounter [facility] Diagnosis Palliative care by specialist- Primary Metastatic colon cancer to liver (HCC) Malignant neoplasm of colon, unspecified site Colon cancer metastasized to lung (HCC) Malignant neoplasm of colon, unspecified site [facility] 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 [facility] Cancer of cecum (HCC)- Primary 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 (HCC) Malignant neoplasm of colon, unspecified site Metastatic colon cancer to liver (HCC) Malignant neoplasm of colon, unspecified site [facility] Diagnosis Cancer of cecum (HCC)- Primary 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 (HCC) Malignant neoplasm of colon, unspecified site Metastatic colon cancer to liver (HCC) Malignant neoplasm of colon, unspecified site [facility] Diagnosis Lower respiratory infection (e.g., bronchitis, pneumonia, pneumonitis, pulmonitis)- Primary Other diseases of respiratory system, not elsewhere classified Sore throat Acute pharyngitis [facility] Diagnosis Anemia due [...] and blood-forming organs [facility]* Diagnosis Controlled type 2 diabetes mellitus [...] unspecified obesity type [facility] Diagnosis Cancer of cecum (HCC)- Primary [...] of magnesium metabolism [facility] Diagnosis Cancer of cecum (HCC)- Primary 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 (HCC) Malignant neoplasm of colon, unspecified site Metastatic colon cancer to liver (HCC) Malignant neoplasm of colon, unspecified site documented in this encounter [facility] Diagnosis Cancer of cecum (HCC)- Primary 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 (HCC) Malignant neoplasm of colon, unspecified site Metastatic colon cancer to liver (HCC) Malignant neoplasm of colon, unspecified site documented [facility] this encounter [facility] Diagnosis Type 2 diabetes mellitus without retinopathy (HCC)- Primary Type II or unspecified type diabetes mellitus without mention of complication, not stated as uncontrolled Combined form of age-related cataract, both eyes Floaters, bilateral Hyperopia, bilateral Regular astigmatism, bilateral Presbyopia documented in this encounter [facility] Diagnosis Metastatic colon [...] and blood-forming organs [facility] Diagnosis Cancer of cecum (HCC)- Primary 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 (HCC) Malignant neoplasm of colon, unspecified site Metastatic colon cancer to liver (HCC) Malignant neoplasm of colon, unspecified site [facility] Diagnosis Cancer of cecum (HCC)- Primary 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 (HCC) Malignant neoplasm of colon, unspecified site Metastatic colon cancer to liver (HCC) Malignant neoplasm of colon, unspecified site Anemia due to vitamin B12 deficiency, unspecified B12 deficiency type History of iron deficiency Personal history of diseases of blood and blood-forming organs [facility] Diagnosis Cancer of cecum (HCC) [...] chemotherapy induced anemia documented [facility] Diagnosis Metastatic colon [...] and blood-forming organs [facility] Diagnosis Cancer of [...] induced diarrhea Diarrhea [facility]* Diagnosis Cancer of cecum (HCC)- Primary 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 (HCC) Malignant neoplasm of colon, unspecified site Metastatic colon cancer to liver (HCC) Malignant neoplasm of colon, unspecified site [facility] Diagnosis Metastatic colon cancer to liver (HCC)- Primary Malignant neoplasm of colon, unspecified site 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 (HCC) Malignant neoplasm of colon, unspecified site Anemia due to vitamin B12 deficiency, unspecified B12 deficiency type History of iron deficiency Personal history of diseases of blood and blood-forming organs [facility] Diagnosis Cancer of cecum (HCC)- Primary 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 (HCC) Malignant neoplasm of colon, unspecified site Metastatic colon cancer to liver (HCC) Malignant neoplasm of colon, unspecified site [facility] Diagnosis Cancer of cecum (HCC)- Primary 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 (HCC) Malignant neoplasm of colon, unspecified site Metastatic colon cancer to liver (HCC) Malignant neoplasm of colon, unspecified site Anemia due to vitamin B12 deficiency, unspecified B12 deficiency type History of iron deficiency Personal history of diseases of blood and blood-forming organs documented [facility]* Diagnosis Cancer of cecum (HCC)- [...] induced diarrhea Diarrhea [facility] Diagnosis Cancer of cecum (HCC)- Primary 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 (HCC) Malignant neoplasm of colon, unspecified site Metastatic colon cancer to liver (HCC) Malignant neoplasm of colon, unspecified site [facility] Diagnosis Metastatic colon cancer to liver (HCC)- Primary Malignant neoplasm of colon, unspecified site 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 (HCC) Malignant neoplasm of colon, unspecified site Anemia due to vitamin B12 deficiency, unspecified B12 deficiency type History of iron deficiency Personal history of diseases of blood and blood-forming organs [facility] Diagnosis Cancer of cecum (HCC)- Primary Malignant neoplasm of cecum [facility]* Diagnosis 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 (HCC) Malignant neoplasm of colon, unspecified site Metastatic colon cancer to liver (HCC) Malignant neoplasm of colon, unspecified site [facility]* Diagnosis Cancer of [...] and blood-forming organs documented in this encounter [facility] note* Diagnosis Cancer of cecum (HCC)- Primary [...] and blood-forming organs [facility]* Diagnosis Anemia due [...] and blood-forming organs documented in this encounter [facility] noteNo assessment information availableWAshtabula [facility] Work Phone: Evaluation note* Diagnosis Cancer of [...] and blood-forming organs documented in this encounter [facility]* Diagnosis Cancer of [...] chemotherapy induced anemia [facility]* Diagnosis Cancer of cecum (HCC)- Primary 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) Malignant neoplasm of colon, unspecified site documented in this encounter [facility]* Diagnosis Cancer of [...] B12 deficiency type documented in this encounter [facility]* Diagnosis Cancer of cecum (HCC)- Primary 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) Malignant neoplasm of colon, unspecified site History of iron deficiency Personal history of diseases of blood and blood-forming organs documented in this encounter [facility]* Diagnosis Metastatic colon cancer to liver (HCC)- Primary Malignant neoplasm of colon, unspecified site Chemotherapy induced diarrhea Diarrhea documented in this encounter [facility]* Diagnosis Controlled type 2 diabetes mellitus without complication, with long-term current use of insulin (HCC)- Primary documented in this encounter [facility]* Diagnosis Onset Date Resolution Status Admit Date Anemia acute January 09 4:35pm Colon cancer metastasized to multiple sites acute January 09, 2025 4:35pm Pneumonia acute January 09 4:35pm [facility] Work Phone: Evaluation note* Diagnosis Nausea and [...] Productive cough Cough documented in this encounter [facility]* Diagnosis Productive cough Cough documented in this encounter [facility]* Diagnosis Hospital discharge follow-up- Primary Other follow-up examination Anemia in neoplastic disease Pneumonia due to infectious organism, unspecified laterality, unspecified part of lung documented in this encounter [facility]* Diagnosis Metastatic colon cancer to liver (HCC)- Primary Malignant neoplasm of colon, unspecified site 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) documented in this encounter [facility]* Diagnosis Metastatic colon cancer to liver (HCC) Malignant neoplasm of colon, unspecified site 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 note* Diagnosis Metastatic colon cancer to liver (HCC) Malignant neoplasm of colon, unspecified site 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 documented in this encounter [facility]* Diagnosis Metastatic colon [...] and blood-forming organs documented in this encounter [facility]* Diagnosis Cancer of cecum (HCC)- Primary 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 (HCC) Malignant neoplasm of colon, unspecified site Metastatic colon cancer to liver (HCC) Malignant neoplasm of colon, unspecified site documented in this encounter [facility] Diagnosis Metastatic colon cancer to liver (HCC)- Primary Malignant neoplasm of colon, unspecified site [facility]* The patient is [...] NSAIDs prn [facility] Work Phone: History of Present illness [...] shortness of breath, dizziness, lightheadedness, or edema [employer] [facility] Work Phone: History of Present illness Narrative* [...] to sleep at night, worse at night -[facility] [employer] [facility] Work Phone: History of Present illness Narrative* [...] to sleep at night, worse at night [facility] Work Phone: History of Present illness Narrative* To see pain medicine 04/14 * + fatigued, pain in side still there (not as sharp, dull ache), sensitive to touch * gabapentin helped at first, worse in the past 2 nights * worse if bends over, pain manageable [facility] Work Phone: History of Present illness Narrative* [...] Pain Management: * OPIOID RISK SCORE=0. [facility] Work Phone: History of Present illness [...] to sleep at night, worse at night [facility] Work Phone: History of Present illness Narrative* [...] the past week * seen Cardiology in April, had Echo done [facility] Work Phone: Hospital Discharge instructions* Attachments The following attachments cannot be sent through Care Everywhere. * Bowel Resection: Laparoscopic: Post-op ([place]) documented [facility] instructionsAdditional Instructions Date of Discharge: 01/10/25[facility] Work Phone: Hospital Discharge instructionsAdditional Instructions You received a unit of blood today. You have been prescribed antibiotics for aspiration pneumonia. Please contact [facility] referral line when you get home (call them immediately) and they will send hospice nurse out to your house for further assistance and evaluation later tonight or soon as possible. If it anytime you feel your breathing is worsening, you change your mind or you have further concerns please do not hesitate to return to the emergency room. We did initially plan on admission to the hospital for supplemental oxygen, pain control, blood transfusion and treatment of aspiration pneumonia however due to your advanced cancer and desire to be at home it was ultimately decided to go home tonight. There is a risk given your low oxygen with this however you are welcome back to the ER if you feel that you are worsening or change her mind.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 Obstructive sleep apnea syndrome Procedures Follow Up In Primary Care - Established Dayami Roe MD [address] [id number] Referral ID Status Reason Start Date Expiration Date V isits Requested Visits Authorized [id number] Authorized 12/31/2022 06/29/2023 1 1 [facility] Work Phone: Reason for referral (narrative)* Consultation (Routine) - Authorized Specialty Diagnoses / Procedures Referred By Contac [...] Primary Care - Established Dayami Roe MD [address] [place] [address] Referral ID Status Reason Start Date Expiration Date V isits Requested Visits Authorized [id number] Authorized 07/03/2023 07/02/2024 1 1 [facility] Work Phone: reason for referral (narrative)* Consultation (Routine) - Authorized Specialty Diagnoses / Procedures Referred By Contfatou t Referred To Contact Primary Care Diagnoses Hypertension, essential, benign Procedures Follow Up In Primary Care - Established Dayami Roe MD [address] [place] [address] Referral ID Status Reason Start Date Expiration Date V isits Requested Visits Authorized [id number] Authorized 09/28/2023 09/27/2024 1 1 [facility] Work Phone: reason for referral (narrative)* Consultation (Routine) - Authorized Specialty Diagnoses / Procedures Referred By Contac [...] Primary Care - Established Dayami Roe MD [address] [place], [place] [id number] Referral ID Status Reason Start Date Expiration Date V isits Requested Visits Authorized [id number] Authorized 01/01/2024 12/31/2024 1 1 [facility] Work Phone: Reason for referral (narrative)No reason for referral information availableWAshtabula County [facility] Center Work Phone: Reason for visit Narrative* MRI/CT (Routine) - Closed Specialty Diagnoses / Procedures Referred By Contac t Referred To Contact CT IMAGING Diagnoses Cancer of cecum (HCC) 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) Procedures CT ABD/PEL W IVCON CT ABD & PELVIS W/CONTRAST Aarti Bar, DO [address] [place] [address] Phone: tel: fax: [facility] [place] [phone] Referral ID Status Reason Start Date Expiration Date V isits Requested Visits Authorized [id number] Closed Auto-Generate d Referral 07/20/2024 08/19/2025 1 1 [facility] for visit Narrative* MRI/CT (Routine) - Closed Specialty Diagnoses / Procedures Referred By Contac t Referred To Contact CT IMAGING Diagnoses Cancer of cecum (HCC) 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) Procedures CT ABD/PEL W IVCON CT ABD & PELVIS W/CONTRAST Aarti Bar, DO [address] [phone] Phone: tel: fax: [place] [address] Referral ID Status Reason Start Date Expiration Date V isits Requested Visits Authorized [id number] Closed Auto-Generate d Referral 10/12/2024 11/11/2025 1 1 [facility] for visit Narrative* [place] Prior Authorization (Routine) - Pending Review Specialty Diagnoses / Procedures Referred By Contac t Referred To Contact Diagnoses Cancer of cecum (HCC) 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) Procedures LEUCOVORIN CALCIUM INJECTION PALONOSETRON HCL IRINOTECAN, 20 MG FLUOROURACIL INJECTION INJ., ZIRABEV, 10 MG Aarti Bar, DO [address] [place] [address] Phone: tel: fax: Aarti Bar, DO [address] [place] [address] Phone: tel: fax: Referral ID Status Reason Start Date Expiration Date Visits Requested Visits Authorized [id number] Pending Review Patient Cleared - Admin/Chair man/Directo r advise to proceed or did not respond 11/23/2024 03/26/2025 1 99 [facility] for visit Narrative* MRI/CT (Routine) - Closed Specialty Diagnoses / Procedures Referred By Oren jones Referred To Contact CT IMAGING Diagnoses 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) Cancer of cecum (HCC) Procedures CT ABD/PEL W IVCON CT ABD & PELVIS W/CONTRAST Aarti Bar, DO [address] [place] [address] Phone: tel: fax: [place] [phone] Referral ID Status Reason Start Date Expiration Date V isits Requested Visits Authorized [id number] Closed Auto-Generate d Referral 01/17/2025 02/16/2026 1 1 [facility] Summary Purpose Family History No Family History Records FoundUnknown Family Member Name Dates Details Family history [...] rtery disease: Mother(V17.3, Z82.49) Status:Active Advance Directives No Advanced Directives Records Found Date Activated Date Inactivated Comments 10/19/2023 10:59 [...] Documents on File Type Date Recorded 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 No January 09, 2025 1:58pm Advance Directive Response Recorded Date/ Time Do you have a Healthcare Power of Epitaxial Reactor Technician? Yes January 09, 2025 5:13pm Advance Directive Response Recorded Date/ Time Do you have a Healthcare Power of Epitaxial Reactor Technician? Yes January 09, 2025 5:13pm Do you have a Healthcare Power of Epitaxial Reactor Technician? Yes March 24, 2025 9:13am Name of Medical Power of Epitaxial Reactor Technician Billy Sierra March 24, 2025 9:13am Chief Complaint 6 MO F/U DM HT [...] 7 WEEKS, HIS PAIN IS CONSTANT, THE [employer] SEEMS TO GIVE HIM SOME RELIEF, [...] PAIN. [facility] AT HOME STRETCHES/EXERCISE. PATIENT STATES HE HAS A CANE AT HOME BUT HE DOES NOT USE IT. HE TAKES MEDICATIONS PRESCRIBED; DENIES NEEDING REFILLS TODAY. 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 PATIENT DENIES NUMBNESS/PINS AND NEEDLES OR WEAKNESS. [...] breath Dyspnea, unspecified type Dameon Rai DO [address] [place] [address] [facility] [address] [place], [place] [address]dan[facility]a [place] [address] Referral ID Status Reason Start Date Expiration Date V isits Requested Visits Authorized [id number] Authorized 01/15/2022 01/15/2023 1 1 Specialty Diagnoses / Procedures Referred By Oren jones Referred To Contact Cardiology Diagnoses Coronary artery disease involving [place] coronary artery of [place] heart without angina pectoris Dyspnea, unspecified type Procedures Echocardiogram complete Dipti Hoffman MD [address] [place] [address] Referral ID Status Reason Start Date Expiration Date V isits Requested Visits Authorized [id number] New Request 05/27/2022 05/27/2023 1 1 Specialty Diagnoses / Procedures Referred By Contac t Referred To Contact Radiology Diagnoses Adenocarcinoma of colon (HCC) Procedures PET Tumor Imaging With CT Skull To Thigh Hayden Balderas, DO [address] [place] [address] Referral ID Status Reason Start Date Expiration Date V isits Requested Visits Authorized [id number] New Request 11/12/2023 11/11/2024 4 4 Specialty Diagnoses / Procedures Referred By Contac t Referred To Contact Hematology and Oncology Diagnoses 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 (Multi) Dayami Roe MD [address] [place] [address] Aarti Bar, DO [address] [facility] [place] [place] [address] Referral ID Status Reason Start Date Expiration Date Visits Requested Visits Authorized [id number] Authorized Specialty Services Required 11/13/2023 11/12/2024 1 1 Specialty Diagnoses / Procedures Referred By Contac t Referred To Contact CT IMAGING Diagnoses Cancer of cecum (HCC) 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) Malignant neoplasm of colon, unspecified part of colon (HCC) Procedures CT CHEST W IVCON DIAGNOSTIC COMPUTED TOMOGRAPHY THORAX W/CONTRAST Rhonda Owens [address] [place] [address] [place] [address] Referral ID Status Reason Start Date Expiration Date Visits Requested Visits Authorized [id number] Authorized Auto-Generat ed Referral 03/01/2024 06/28/2024 2 2 Specialty Diagnoses / Procedures Referred By Contac t Referred To Contact CT IMAGING Diagnoses Cancer of cecum (HCC) 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) Malignant neoplasm of colon, unspecified part of colon (HCC) Procedures CT ABD/PEL W IVCON CT ABD & PELVIS W/CONTRAST Rhonda Owens [address] [place] [address] [place] [address] Referral ID Status Reason Start Date Expiration Date Visits Requested Visits Authorized [id number] Authorized Auto-Generat ed Referral 03/01/2024 06/28/2024 1 1 Specialty Diagnoses / Procedures Referred By Contac t Referred To Contact Ophthalmology Diagnoses Controlled type 2 diabetes mellitus without complication, with long-term current use of insulin (HCC) Procedures CONSULT TO OPHTHALMOLOGY OFFICE/OUTPATIENT NEW HIGH MDM 60 MINUTES Dayami Puri MD [address] [place] [id number] Referral ID Status Reason Start Date Expiration Date Visits Requested Visits Authorized [id number] Authorized PCP Requested Referral 03/08/2024 03/08/2025 1 1 Specialty Diagnoses / Procedures Referred By Contac t Referred To Contact Diagnoses 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) Procedures CONSULT TO PALLIATIVE CARE OFFICE/OUTPATIENT NEW HIGH MDM 60 MINUTES Dayami Puri MD [facility] [place] [address] Referral ID Status Reason Start Date Expiration Date Visits Requested Visits Authorized [id number] Authorized PCP Requested Referral 03/08/2024 03/08/2025 1 1 Specialty Diagnoses / Procedures Referred By Contac t Referred To Contact CT IMAGING Diagnoses Cancer of cecum (HCC) 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) Procedures CT ABD/PEL W IVCON CT ABD & PELVIS W/CONTRAST Aarti Bar DO [address] [place] [address] [place] [address] Referral ID Status Reason Start Date Expiration Date Visits Requested Visits Authorized [id number] Authorized Auto-Generat ed Referral 07/20/2024 08/19/2025 1 1 Specialty Diagnoses / Procedures Referred By Contac t Referred To Contact CT IMAGING Diagnoses Cancer of cecum (HCC) 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) Procedures CT CHEST W IVCON DIAGNOSTIC COMPUTED TOMOGRAPHY THORAX W/CONTRAST Aarti Bar, DO [address] [place] [address] [place] [address] Referral ID Status Reason Start Date Expiration Date Visits Requested Visits Authorized [id number] Authorized Auto-Generat ed Referral 07/20/2024 08/19/2025 1 [...] 4:35pm Pneumonia January 09, 2025 4:35 pm Chief Complaint Admit Date 2 UNITS PRBC November 24, 2024 7:46a m PNEUMONIA, LOW BP January 09, 2025 4:35 pm PNEUMONIA, LOW BP January 09, 2025 4:46 pm PNEUMONIA, LOW BP January 10, 2025 6:53 am Chief Complaint Admit Date PNEUMONIA, LOW BP January 09, 2025 4:35 pm PNEUMONIA, LOW BP January 09, 2025 4:46 pm PNEUMONIA, LOW BP January 10, 2025 6:53 am PNEUMONIA, LOW BP January 10, 2025 8:03 am SOB March 24, 2025 8:52am Additional Source Comments (unrecognized sect ion and content) No Status Records FoundNo Status Records FoundNo Status Records FoundNo Status Records FoundNo Status Records FoundNo Status Records FoundNo Status Records FoundNo Status Records FoundNo Status Records FoundNo Status Records FoundNo Status Records FoundNo Status Records FoundNo Status Records Found INFORMATION SOURCE (unrecogn ized section and content) DATE CREATED AUTHOR 12/17/2017 [facility] DATE CREATED AUTHOR AUTHOR'S ORGANIZ ATION 03/27/2019 [facility] DATE CREATED AUTHOR AUTHOR'S ORGANIZ ATION 04/26/2022 [facility] DATE CREATED AUTHOR AUTHOR'S ORGANIZ ATION 04/27/2022 [facility] DATE CREATED AUTHOR AUTHOR'S ORGANIZ ATION 12/27/2022 [facility] DATE CREATED AUTHOR AUTHOR'S ORGANIZ ATION 10/26/2023 [facility] DATE CREATED AUTHOR AUTHOR'S ORGANIZ ATION 12/27/2023 [facility] DATE CREATED AUTHOR AUTHOR'S ORGANIZ ATION 01/02/2024 [facility] DATE CREATED AUTHOR AUTHOR'S ORGANIZ ATION 01/16/2024 [facility] DATE CREATED AUTHOR AUTHOR'S ORGANIZ ATION 02/06/2024 [facility] DATE CREATED AUTHOR AUTHOR'S ORGANIZ ATION 04/10/2025 [facility] DATE CREATED AUTHOR AUTHOR'S ORGANIZ ATION 04/22/2025 [facility] DATE CREATED AUTHOR AUTHOR'S ORGANIZ ATION 05/06/2025 [facility] Care Teams (unrecognized sec tion and content) [employer] Specialist Relationship Specialty Start Date End Date Dayami Roe MD [address] [place] [phone] PCP - General Family Medicine 08/05/21 [employer] Specialist Relationship Specialty Start Date End Date Dayami Roe MD [address] [place] [address] PCP - General Family Medicine 08/05/21 [employer] Specialist Relationship Specialty Start Date End Date Dayami Roe MD [address] [place] [address] PCP - General Family Medicine 08/05/21 [employer] Specialist Relationship Specialty Start Date End Date Dayami Roe MD [address] [place] [phone] PCP - General 03/01/19 Dayami Roe MD [address] [place] [phone] PCP - [employer] Medicare Advantage PCP 06/29/22 [employer] Specialist Relationship Specialty Start Date End Date Dayami Roe MD [address] [place] [address] PCP - General Family Medicine 08/05/21 [employer] Specialist Relationship Specialty Start Date End Date Dayami Roe MD PCP - General 03/01/19 Dayami Roe MD [address] [place], [place] [phone] PCP - [employer] Medicare Advantage PCP 06/29/22 [employer] Specialist Relationship Specialty Start Date End Date Dayami Roe MD PCP - General 03/01/19 Dayami Roe MD [address] [place] [phone] PCP - [employer] Medicare Advantage PCP 06/29/22 [employer] Specialist Relationship Specialty Start Date End Date Dayami Roe MD [address] [place] [phone] PCP - General Family Medicine 08/05/21 [employer] Specialist Relationship Specialty Start Date End Date Dayami Roe MD [address] [place] [phone] PCP - General Family Medicine 08/05/21 [employer] Specialist Relationship Specialty Start Date End Date Dayami Roe MD [address] [place] [phone] PCP - General Family Medicine 08/05/21 [employer] Specialist Relationship Specialty Start Date End Date Dayami Roe MD [address] [place] [address] PCP - General Family Medicine 08/05/21 [employer] Specialist Relationship Specialty Start Date End Date Dayami Roe MD [address] [place] [address] PCP - General Family Medicine 08/05/21 [employer] Specialist Relationship Specialty Start Date End Date Dayami Roe MD [address] [place] [address] PCP - [employer] Medicare Advantage PCP 06/29/22 Dayami Roe MD [address] [place] [address] PCP - General Family Medicine 10/23/23 Tara To, public improvement inspectorLive In Caregiver 10/30/23 [employer] Specialist Relationship Specialty Start Date End Date Dayami Roe MD [address] [facility] [place] [address] PCP - General Family Medicine 12/15/23 [employer] Specialist Relationship Specialty Start Date End Date Dayami Roe MD [address] [facility] [place] [address] PCP - General Family Medicine 12/15/23 [employer] Specialist Relationship Specialty Start Date End Date Dayami Roe MD [address] [place] [address] PCP - General Family Medicine 12/15/23 [employer] Specialist Relationship Specialty Start Date End Date Dayami Roe MD [address] [facility] [place] [address] PCP - General Family Medicine 12/15/23 [employer] Specialist Relationship Specialty Start Date End Date Dayami Roe MD [address] [place] [address] PCP - General Family Medicine 12/15/23 [employer] Specialist Relationship Specialty Start Date End Date Dayami Roe MD [address] [facility] [place] [address] PCP - General Family Medicine 12/15/23 [employer] Specialist Relationship Specialty Start Date End Date Dayami Roe MD [address] [facility] [address] PCP - General Family Medicine 12/15/23 [employer] Specialist Relationship Specialty Start Date End Date Dayami Roe MD [address] [facility] [place] [address] PCP - General Family Medicine 12/15/23 [employer] Specialist Relationship Specialty Start Date End Date Dayami Roe MD [address] [place] [address] PCP - General Family Medicine 12/15/23 [employer] Specialist Relationship Specialty Start Date End Date Dayami Roe MD [address] [place] [address] PCP - General Family Medicine 12/15/23 [employer] Specialist Relationship Specialty Start Date End Date Dayami Roe MD [address] [place] [address] PCP - General Family Medicine 12/15/23 [employer] Specialist Relationship Specialty Start Date End Date Dayami Roe MD [address] [facility] [place] [address] PCP - General Family Medicine 12/15/23 [employer] Specialist Relationship Specialty Start Date End Date Dayami Roe MD [address] [facility] [place] [address] PCP - General Family Medicine 12/15/23 Jocelin Beach RN [employer] Oncology 01/13/24 Aarti Bar DO [address] [facility] [place] [address] Hematology/Oncology 01/13/24 [employer] Specialist Relationship Specialty Start Date End Date Dayami Roe MD [address] [place] [address] PCP - General Family Medicine 12/15/23 Jocelin Beach RN [employer] Oncology 01/13/24 Aarti Bar DO [address] [facility] [place] [address] Hematology/Oncology 01/13/24 [employer] Specialist Relationship Specialty Start Date End Date Dayami Roe MD [address] [place] [address] PCP - General Family Medicine 12/15/23 Jocelin Beach RN [employer] Oncology 01/13/24 Aarti Bar DO [address] [facility] [place] [address] Hematology/Oncology 01/13/24 [employer] Specialist Relationship Specialty Start Date End Date Dayami Roe MD [address] [facility] [address] PCP - General Family Medicine 12/15/23 Jocelin Beach RN [employer] Oncology 01/13/24 Aarti Bar DO [address] [place] [address] Hematology/Oncology 01/13/24 [employer] Specialist Relationship Specialty Start Date End Date Dayami Roe MD [address] [facility] [address] PCP - General Family Medicine 12/15/23 Jocelin Beach RN [employer] Oncology 01/13/24 Aarti Bar DO [address] [facility] [place] [address] Hematology/Oncology 01/13/24 [employer] Specialist Relationship Specialty Start Date End Date Dayami Reo MD [address] [facility] [place] [address] PCP - General Family Medicine 12/15/23 Jocelin Beach RN [employer] Oncology 01/13/24 Aarti Bar DO [address] [facility] [place] [address] Hematology/Oncology 01/13/24 [employer] Specialist Relationship Specialty Start Date End Date Dayami Roe MD [address] [facility] [place] [address] PCP - General Family Medicine 12/15/23 Jocelin Beach RN [employer] Oncology 01/13/24 Aarti Bar DO [address] [place] [address] Hematology/Oncology 01/13/24 [employer] Specialist Relationship Specialty Start Date End Date Dayami Roe MD [address] [facility] [place] [address] PCP - General Family Medicine 12/15/23 Jocelin Beach RN [employer] Oncology 01/13/24 Aarti Bar DO [address] [place] [address] Hematology/Oncology 01/13/24 [employer] Specialist Relationship Specialty Start Date End Date Dayami Roe MD [address] [facility] [place] [address] PCP - General Family Medicine 12/15/23 Jocelin Beach RN [employer] Oncology 01/13/24 Aarti Bar DO [address] [place] [address] Hematology/Oncology 01/13/24 [employer] Specialist Relationship Specialty Start Date End Date Dayami Roe MD [address] [facility] [place] [address] PCP - General Family Medicine 12/15/23 Jocelin Beach RN [employer] Oncology 01/13/24 Aarti Bar DO [address] [place] [address] Hematology/Oncology 01/13/24 [employer] Specialist Relationship Specialty Start Date End Date Dayami Roe MD [address] [place] [address] PCP - General Family Medicine 12/15/23 Jocelin Beach RN [employer] Oncology 01/13/24 Aarti Bar DO [address] [place] [address] Hematology/Oncology 01/13/24 [employer] Specialist Relationship Specialty Start Date End Date Dayami Roe MD [address] [place] [address] PCP - General Family Medicine 12/15/23 Jocelin Beach RN [employer] Oncology 01/13/24 Aarti Bar DO [address] [facility] [place] [address] Hematology/Oncology 01/13/24 [employer] Specialist Relationship Specialty Start Date End Date Dayami Roe MD [address] [place] [address] PCP - General Family Medicine 12/15/23 Jocelin Beach RN [employer] Oncology 01/13/24 Aarti Bar DO [address] [facility] [place] [address] Hematology/Oncology 01/13/24 [employer] Specialist Relationship Specialty Start Date End Date Dayami Puri MD [address] [facility] [place] [address] PCP - General Family Medicine 03/08/24 Jocelin Beach RN [employer] Oncology 01/13/24 Aarti Bar DO [address] [facility] [place] [address] Hematology/Oncology 01/13/24 [employer] Specialist Relationship Specialty Start Date End Date Dayami Puri MD [address] [facility] [place] [address] PCP - General Family Medicine 03/08/24 Jocelin Beach RN [employer] Oncology 01/13/24 Aarti Bar DO [address] [place] [address] Hematology/Oncology 01/13/24 [employer] Specialist Relationship Specialty Start Date End Date Dayami Puri MD [address] [facility] [place] [address] PCP - General Family Medicine 03/08/24 Jocelin Beach RN [employer] Oncology 01/13/24 Aarti Bar DO [address] [place] [address] Hematology/Oncology 01/13/24 Prosper Narvaez [address] [place] [phone] Pulmonary Disease 03/15/24 [employer] Specialist Relationship Specialty Start Date End Date Dayami Puri MD [address] [facility] [place] [address] PCP - General Family Medicine 03/08/24 Jocelin Beach RN [employer] Oncology 01/13/24 Aarti Bar DO [address] [place] [address] Hematology/Oncology 01/13/24 Prosper Narvaez [address] [place] [phone] Pulmonary Disease 03/15/24 [employer] Specialist Relationship Specialty Start Date End Date Dayami Puri MD [address] [place], [place] 608181 PCP - General Family Medicine 03/08/24 Jocelin Beach RN [employer] Oncology 01/13/24 Aarti Bar DO [address] [place] [address] Hematology/Oncology 01/13/24 Prosper Narvaez [address] [place] [address] Pulmonary Disease 03/15/24 [employer] Specialist Relationship Specialty Start Date End Date Dayami Puri MD [address] [place] [address] PCP - General Family Medicine 03/08/24 Jocelin Beach RN [employer] Oncology 01/13/24 Aarti Bar DO [address] [place] [address] Hematology/Oncology 01/13/24 Prosper Narvaez [address] [place] [address] Pulmonary Disease 03/15/24 [employer] Specialist Relationship Specialty Start Date End Date Dayami Puri MD [address] [place] [address] PCP - General Family Medicine 03/08/24 Jocelin Beach RN [employer] Oncology 01/13/24 Aarti Bar DO [address] [place] [address] Hematology/Oncology 01/13/24 Prosper Narvaez [address] [place] [address] Pulmonary Disease 03/15/24 [employer] Specialist Relationship Specialty Start Date End Date Dayami Puri MD [address] [place] [address] PCP - General Family Medicine 03/08/24 Jocelin Beach RN [employer] Oncology 01/13/24 Aarti Bar DO [address] [place] [address] Hematology/Oncology 01/13/24 Prosper Narvaez [address] [facility] [place] [address] Pulmonary Disease 03/15/24 [employer] Specialist Relationship Specialty Start Date End Date Dayami Roe MD [address] [place] [address] PCP - General Family Medicine 12/15/23 03/07/24 Dayami Puri MD [address] [place] [address] PCP - General Family Medicine 03/08/24 Jocelin Beach RN [employer] Oncology 01/13/24 Aarti Bar DO [address] [place] [address] Hematology/Oncology 01/13/24 Prosper Narvaez [address] [place] [address] Pulmonary Disease 03/15/24 [employer] Specialist Relationship Specialty Start Date End Date Dayami Puri MD [address] [place] [address] PCP - General Family Medicine 03/08/24 Jocelin Beach RN [employer] Oncology 01/13/24 Aarti Bar DO [address] [place] [address] Hematology/Oncology 01/13/24 Prosper Narvaez [address] [place] [address] Pulmonary Disease 03/15/24 [employer] Specialist Relationship Specialty Start Date End Date Dayami Puri MD [address] [place] [address] PCP - General Family Medicine 03/08/24 Jocelin Beach RN [employer] Oncology 01/13/24 Aarti Bar DO [address] [place] [address] Hematology/Oncology 01/13/24 Prosper Narvaez [address] [place] [address] Pulmonary Disease 03/15/24 [employer] Specialist Relationship Specialty Start Date End Date Dayami Puri MD [address] [place] [address] PCP - General Family Medicine 03/08/24 Jocelin Beach RN [employer] Oncology 01/13/24 Aarti Bar DO [address] [place] [address] Hematology/Oncology 01/13/24 Prosper Narvaez [address] [place] [address] Pulmonary Disease 03/15/24 [employer] Specialist Relationship Specialty Start Date End Date Dayami Puri MD [address] [place] [address] PCP - General Family Medicine 03/08/24 Jocelin Beach RN [employer] Oncology 01/13/24 Aarti Bar DO [address] [place] [address] Hematology/Oncology 01/13/24 Prosper Narvaez [address] [place] [address] Pulmonary Disease 03/15/24 [employer] Specialist Relationship Specialty Start Date End Date Dayami Puri MD [address] [place] [address] PCP - General Family Medicine 03/08/24 Jocelin Beach RN [employer] Oncology 01/13/24 Aarti Bar DO [address] [place] [address] Hematology/Oncology 01/13/24 Prosper Narvaez [address] [place] [address] Pulmonary Disease 03/15/24 [employer] Specialist Relationship Specialty Start Date End Date Dayami Puri MD [address] [place] [address] PCP - General Family Medicine 03/08/24 Jocelin Beach RN [employer] Oncology 01/13/24 Aarti Bar DO [address] [place] [address] Hematology/Oncology 01/13/24 Prosper Narvaez [address] [place] [address] Pulmonary Disease 03/15/24 [employer] Specialist Relationship Specialty Start Date End Date Dayami Puri MD [address] [place] [address] PCP - General Family Medicine 03/08/24 Jocelin Beach RN [employer] Oncology 01/13/24 Aarti Bar DO [address] [place] [address] Hematology/Oncology 01/13/24 Prosper Narvaez [address] [place] [address] Pulmonary Disease 03/15/24 [employer] Specialist Relationship Specialty Start Date End Date Dayami Puri MD [address] [facility] [place] [address] PCP - General Family Medicine 03/08/24 Jocelin Beach RN [employer] Oncology 01/13/24 Aarti Bar DO [address] [place] [address] Hematology/Oncology 01/13/24 Prosper Narvaez [address] [place] [address] Pulmonary Disease 03/15/24 [employer] Specialist Relationship Specialty Start Date End Date Dayami Puri MD [address] [place] [address] PCP - General Family Medicine 03/08/24 Jocelin Beach RN [employer] Oncology 01/13/24 Aarti Bar DO [address] [facility] [place] [address] Hematology/Oncology 01/13/24 Prosper Narvaez [address] [facility] [place] [address] Pulmonary Disease 03/15/24 [employer] Specialist Relationship Specialty Start Date End Date Dayami Puri MD [address] [facility] [place] [address] PCP - General Family Medicine 03/08/24 Jocelin Beach RN [employer] Oncology 01/13/24 Aarti Bar DO [address] [facility] [place] [address] Hematology/Oncology 01/13/24 Prosper Narvaez [address] [place] [address] Pulmonary Disease 03/15/24 [employer] Specialist Relationship Specialty Start Date End Date Dayami Puri MD [address] [place], [place] 605001 PCP - General Family Medicine 03/08/24 Jocelin Beach RN [employer] Oncology 01/13/24 Aarti Bar DO [address] [place], [place] [address]39[address] [phone] Hematology/Oncology 01/13/24 Prosper Narvaez [address] [place] [address] Pulmonary Disease 03/15/24 [employer] Specialist Relationship Specialty Start Date End Date Dayami Puri MD [address] [place] [address] PCP - General Family Medicine 03/08/24 Jocelin Beach RN [employer] Oncology 01/13/24 Aarti Bar DO [address] [place] [address] Hematology/Oncology 01/13/24 Prosper Narvaez [address] [place] [address] Pulmonary Disease 03/15/24 [employer] Specialist Relationship Specialty Start Date End Date Dayami Puri MD [address] [place] [address] PCP - General Family Medicine 03/08/24 Jocelin Beach RN [employer] Oncology 01/13/24 Aarti Bar DO [address] [place] [address] Hematology/Oncology 01/13/24 Prosper Narvaez [address] [place] [address] Pulmonary Disease 03/15/24 [employer] Specialist Relationship Specialty Start Date End Date Dayami Puri MD [address] [place] [address] PCP - General Family Medicine 03/08/24 Jocelin Beach RN [employer] Oncology 01/13/24 Aarti Bar DO [address] [place] [address] Hematology/Oncology 01/13/24 Prosper Narvaez [address] [place] [address] Pulmonary Disease 03/15/24 [employer] Specialist Relationship Specialty Start Date End Date Dayami Puri MD [address] [place] [address] PCP - General Family Medicine 03/08/24 Jocelin Beach RN [employer] Oncology 01/13/24 Aarti Bar DO [address] [place] [address] Hematology/Oncology 01/13/24 Prosper Narvaez [address] [place] [address] Pulmonary Disease 03/15/24 [employer] Specialist Relationship Specialty Start Date End Date Dayami Roe MD [address] [place] [address] PCP - [employer] Medicare Advantage PCP 06/29/22 Dayami Roe MD [address] [facility] [place] [address] PCP - General Family Medicine 10/23/23 Tara To, public improvement inspectorLive In Caregiver 10/30/23 [employer] Specialist Relationship Specialty Start Date End Date Dayami Puri MD [address] [place], [place] [id number] PCP - General Family Medicine 03/08/24 Jocelin Beach, ALESSANDRA [employer] Oncology 01/13/24 Aarti Bar DO [address] [place], [place] [id number] Hematology/Oncology 01/13/24 Prosper Narvaez [address] [facility] [place] [address] Pulmonary Disease 03/15/24 PodlogMady quarles [email or web address] FOAM RUBBER [address] [place], [place] [id number] [facility] 06/04/24 Sustainable Agriculture Specialist Relationship Specialty Start Date End Date Dayami Puri MD [address] [place], [place] [id number] PCP - General Family Medicine 03/08/24 Jocelin Beach RN [employer] Flatbed Truck Driver Oncology 01/13/24 Aarti Bar DO [address] [place] [address] Hematology/Oncology 01/13/24 Prosper Narvaez [address] [facility] [place] [address] Pulmonary Disease 03/15/24 Podlogar, Mady, HAND 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 [address] [place] [address] Wash [facility] Greaser [facility] 06/04/24 [employer] Agriculture Specialist Relationship Specialty Start Date End Date Dayami Puri MD [address] [place] [address] PCP - General Family Medicine 03/08/24 Jocelin Beach RN [employer] Flatbed Truck Driver Oncology 01/13/24 Aarti Bar DO [address] [place] [address] Hematology/Oncology 01/13/24 Prosper Narvaez [address] [facility] [address] Pulmonary Disease 03/15/24 Podlogar, Mady, HAND 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 [address] [place] [address] Wash [employer] Greaser [facility] 06/04/24 [employer] Agriculture Specialist Relationship Specialty Start Date End Date Dayami Puri MD [address] [place] [address] PCP - General Family Medicine 03/08/24 Jocelin Beach RN [employer] Flatbed Truck Driver Oncology 01/13/24 Aarti Bar DO [address] [facility] [place] [address] Hematology/Oncology 01/13/24 Prosper Narvaez [address] [facility] [place] [address] Pulmonary Disease 03/15/24 Podlogar, Mady, HAND 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 [address] [place] [address] Wash [employer] Greaser [facility] 06/04/24 [employer] Agriculture Specialist Relationship Specialty Start Date End Date Dayami Puri MD [address] [place] [address] PCP - General Family Medicine 03/08/24 Jocelin Beach RN [employer] Flatbed Truck Driver Oncology 01/13/24 Aarti Bar DO [address] [place] [address] Hematology/Oncology 01/13/24 Prosper Narvaez [address] [facility] [place] [address] Pulmonary Disease 03/15/24 Podlogar, Mady, HAND 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 [address] [place] [address] [facility] 06/04/[facility] [employer] Agriculture Specialist Relationship Specialty Start Date End Date Dayami Puri MD [address] [place] [address] PCP - General Family Medicine 03/08/24 Jocelin Beach RN [employer] Flatbed Truck Driver Oncology 01/13/24 Arati Bar DO [address] [place] [address] Hematology/Oncology 01/13/24 Prosper Narvaez [address] [facility] [place] [address] Pulmonary Disease 03/15/24 Podlogar, HIRAM EarlN.MIXER FOAM RUBBER [address] [place] [address] Wash [employer] Greaser [facility] 06/04/24 [employer] Agriculture Specialist Relationship Specialty Start Date End Date Dayami Puri MD [address] [place] [address] PCP - General Family Medicine 03/08/24 Jocelin Beach RN [employer] Flatbed Truck Driver Oncology 01/13/24 Aarti Bar DO [address] [place] [address] Hematology/Oncology 01/13/24 Prosper Narvaez [address] [facility] [place] [phone] Pulmonary Disease 03/15/24 Podlogar, Mady, HAND 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 [address] [place] [address] [facility] 06/04/24 [employer] Agriculture Specialist Relationship Specialty Start Date End Date Dayami Puri MD [address] [place] [address] PCP - General Family Medicine 03/08/24 Jocelin Beach RN [employer] Flatbed Truck Driver Oncology 01/13/24 Aarti Bar DO [address] [place] [address] Hematology/Oncology 01/13/24 Prosper Narvaez [address] [facility] [place] [address] Pulmonary Disease 03/15/24 Podlogar, Mady, HAND 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 [address] [place] [address] Wash [employer] Greaser [facility] 06/04/24 [employer]ustainable Agriculture Specialist Relationship Specialty Start Date End Date Dayami Puri MD [address] [place] [address] PCP - General Family Medicine 03/08/24 Jocelin Beach RN [employer] Flatbed Truck Driver Oncology 01/13/24 Aarti Bar DO [address] [place] [address] Hematology/Oncology 01/13/24 Prosper Narvaez [address] [facility] [place] [address] Pulmonary Disease 03/15/24 Podlogar, Mady, HAND 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 [address] [place] [address] Wash [employer] Greaser [facility] 06/04/24 [employer] Agriculture Specialist Relationship Specialty Start Date End Date Dayami Puri MD [address] [place] [address] PCP - General Family Medicine 03/08/24 Jocelin Beach RN [employer] Flatbed Truck Driver Oncology 01/13/24 Aarti Bar DO [address] [place] [address] Hematology/Oncology 01/13/24 Prosper Narvaez [address] [facility] [place] [place] [address] Pulmonary Disease 03/15/24 PodlogarMady APRN.MIXER FOAM RUBBER [address] [place] [address] Wash [employer] Greaser [facility] 06/04/24 [employer] Agriculture Specialist Relationship Specialty Start Date End Date Dayami Puri MD [address] [place] [address] PCP - General Family Medicine 03/08/24 Jocelin Beach RN [employer] Flatbed Truck Driver Oncology 01/13/24 Aarti Bar DO [address] [place] [address] Hematology/Oncology 01/13/24 Prosper Narvaez [address] [facility] [place] [address] Pulmonary Disease 03/15/24 PodlogarMady APRN.MIXER FOAM RUBBER [address] [place] [address] Wash [facility] Family [facility] 06/04/24 [employer] Agriculture Specialist Relationship Specialty Start Date End Date Dayami Puri MD [address] [place] [address] PCP - General Family Medicine 03/08/24 Jocelin Beach RN [employer] Flatbed Truck Driver Oncology 01/13/24 Aarti Bar DO [address] [place] [address] Hematology/Oncology 01/13/24 Prosper Narvaez [address] [facility] [place] [address] Pulmonary Disease 03/15/24 PodlogarMady APRN.MIXER FOAM RUBBER [address] [place] [address] [facility] 06/04/24 [employer] Specialist Relationship Specialty Start Date End Date Dayami Puri MD [address] [place] [address] PCP - General Family Medicine 03/08/24 Jocelin Beach RN [employer] Flatbed Truck Driver Oncology 01/13/24 Aarti Bar DO [address] [place] [address] Hematology/Oncology 01/13/24 Prosper Narvaez [address] [place] [address] Pulmonary Disease 03/15/24 PodlogarMady APRN.MIXER FOAM RUBBER [address] [place] [address] [facility] 06/04/24 [employer] Agriculture Specialist Relationship Specialty Start Date End Date Dayami Puri MD [address] [place] [address] PCP - General Family Medicine 03/08/24 Jocelin Beach RN [employer] Flatbed Truck Driver Oncology 01/13/24 Aarti Bar DO [address] [facility] [place] [address] Hematology/Oncology 01/13/24 Prosper Narvaez [address] [facility] [place] [address] Pulmonary Disease 03/15/24 Podlogar, HODA Earl.MIXER FOAM RUBBER [address] [place] [address] [facility] 06/04/24 [employer] Specialist Relationship Specialty Start Date End Date Dayami Puri MD [address] [place] [address] PCP - General Family Medicine 03/08/24 Jocelin Beach RN [employer] Flatbed Truck Driver Oncology 01/13/24 Aarti Bar DO [address] [facility] [place] [address] Hematology/Oncology 01/13/24 Prosper Narvaez [address] [facility] [place] [address] Pulmonary Disease 03/15/24 Podlogar, HODA Earl.MIXER FOAM RUBBER [address] [place] [address] [facility] 06/04/24 [employer] Specialist Relationship Specialty Start Date End Date Dayami Puri MD [address] [place] [address] PCP - General Family Medicine 03/08/24 Jocelin Beach RN [employer] Flatbed Truck Driver Oncology 01/13/24 Aarti Bra DO [address] [place] [address] Hematology/Oncology 01/13/24 Prosper Narvaez [address] [place] [address] Pulmonary Disease 03/15/24 Podlogar, HODA Earl.MIXER FOAM RUBBER [address] [place] [address] [facility] 06/04/24 [employer] Agriculture Specialist Relationship Specialty Start Date End Date Dayami Puri MD [address] [place] [address] PCP - General Family Medicine 03/08/24 Jocelin Beach RN [employer] Flatbed Truck Driver Oncology 01/13/24 Aarti Bar DO [address] [place] [address] Hematology/Oncology 01/13/24 Prosper Narvaez [address] [place] [address] Pulmonary Disease 03/15/24 Podlogar, HODA Earl.MIXER FOAM RUBBER [address] [place] [address] [facility] 06/04/24 [employer]ustainable Agriculture Specialist Relationship Specialty Start Date End Date Dayami Puri MD [address] [place] [address] PCP - General Family Medicine 03/08/24 Jocelin Beach RN [employer] Flatbed Truck Driver Oncology 01/13/24 Aarti Bar DO [address] [place] [address] Hematology/Oncology 01/13/24 Prosper Narvaez [address] [place] [address] Pulmonary Disease 03/15/24 Podlogar, HODA Earl.MIXER FOAM RUBBER [address] [place] [address] [facility] 06/04/24 [employer] Agriculture Specialist Relationship Specialty Start Date End Date Dayami Puri MD [address] [place] [address] PCP - General Family Medicine 03/08/24 Jocelin Beach RN [employer] Flatbed Truck Driver Oncology 01/13/24 Aarti Bar DO [address] [place] [address] Hematology/Oncology 01/13/24 Prosper Narvaez [address] [place] [address] Pulmonary Disease 03/15/24 Podlogar, HODA Earl.MIXER FOAM RUBBER [address] [place] [address] [facility] 06/04/24 Sustainable Agriculture Specialist Relationship Specialty Start Date End Date Dayami Puri MD [address] [place], [place] [address] PCP - General Family Medicine 03/08/24 Jocelin Beach RN [employer] Flatbed Truck Driver Oncology 01/13/24 Aarti Bar DO [address] [place] [address] Hematology/Oncology 01/13/24 Prosper Narvaez [address] [place] [address] Pulmonary Disease 03/15/24 Podlogar, HODA Earl.MIXER FOAM RUBBER [address] [place] [address] [facility] 06/04/24 [employer]ustainable [employer] Specialist Relationship Specialty Start Date End Date Dayami Puri MD [address] [place] [address] PCP - General Family Medicine 03/08/24 Jocelin Beach RN [employer] Flatbed Truck Driver Oncology 01/13/24 Aarti Bar DO [address] [facility] [place] [address] Hematology/Oncology 01/13/24 Prosper aNrvaez [address] [place] [address] Pulmonary Disease 03/15/24 Podlogar, HODA Earl.MIXER FOAM RUBBER [address] [place] [address] [facility] 06/04/24 Sustainable Agriculture Specialist Relationship Specialty Start Date End Date Dayami Puri MD [address] [place] [address] PCP - General Family Medicine 03/08/24 Jocelin Beach RN [employer] Flatbed Truck Driver Oncology 01/13/24 Aarti Bar DO [address] [place] [address] Hematology/Oncology 01/13/24 Prosper Narvaez [address] [facility] [place] [address] Pulmonary Disease 03/15/24 Podlogar, HODA Earl.MIXER FOAM RUBBER [address] [place] [address] [facility] 06/04/24 [employer] Specialist Relationship Specialty Start Date End Date Dayami Puri MD [address] [place] [address] PCP - General Family Medicine 03/08/24 Jocelin Beach RN [employer] Flatbed Truck Driver Oncology 01/13/24 Aarti Bar DO [address] [place] [address] Hematology/Oncology 01/13/24 Prosper Narvaez [address] [place] [address] Pulmonary Disease 03/15/24 Podlogar, HODA Earl.MIXER FOAM RUBBER [address] [place] [address] Wash [employer] Greaser [facility] 06/04/24 [employer] Specialist Relationship Specialty Start Date End Date Dayami Puri MD [address] [place] [address] PCP - General Family Medicine 03/08/24 Jocelin Beach RN [employer] Flatbed Truck Driver Oncology 01/13/24 Aarti Bar DO [address] [place] [address] Hematology/Oncology 01/13/24 Prosper Narvaez [address] [facility] [place] [address] Pulmonary Disease 03/15/24 Podlogar, HIRAM EarlN.MIXER FOAM RUBBER [address] [place] [address] Wash [employer] Greaser [facility] 06/04/24 [employer] Specialist Relationship Specialty Start Date End Date Dayami Puri MD [address] [place] [address] PCP - General Family Medicine 03/08/24 Jocelin Beach RN [employer] Flatbed Truck Driver Oncology 01/13/24 Aarti Bar DO [address] [facility] [place] [address] Hematology/Oncology 01/13/24 Prosper Narvaez [address] [place] [address] Pulmonary Disease 03/15/24 Podlogar, HIRAM EarlN.MIXER FOAM RUBBER [address] [place], [place] [address] [facility] 06/04/24 Brunilda Vergara APRN.MIXER FOAM RUBBER [address] [place] [address] [facility] 09/09/24 [employer] Specialist Relationship Specialty Start Date End Date Dayami Puri MD [address] [place] [address] PCP - General Family Medicine 03/08/24 Jocelin Beach, ALESSANDRA [employer] Flat[employer] Truck Driver Oncology 01/13/24 Aarti Bar DO [address] [place], [place] [id number] Hematology/Oncology 01/13/24 Prosper Narvaez [address] [place] [phone] Pulmonary Disease 03/15/24 PodlogarMady APRN.MIXER FOAM RUBBER [address] [place] [id number] [facility] 06/04/24 Brunilda Vergara APRN.MIXER FOAM RUBBER [address] [place], [place] [address] [facility] 09/09/24 Amparo Razo LISW [address] [place] [address] Hair Or Beauty Salon Assistant Hematology/Oncology 09/14/24 [employer] Specialist Relationship Specialty Start Date End Date Dayami Puri MD [address] [place], [place] [address] PCP - General Family Medicine 03/08/24 Jocelin Beach RN [employer] Flatbed Truck Driver Oncology 01/13/24 Aarti Bar DO [address] [place] [address] Hematology/Oncology 01/13/24 Prosper Narvaez [address] [facility] [place] [address] Pulmonary Disease 03/15/24 Podlogar, Mady, HAND 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 [address] [place] [address] [facility] [employer] Gre[employer] Family [facility] 06/04/24 Brunilda Vergara APRN.MIXER FOAM RUBBER [address] [place] [address] [facility] 09/09/24 Amparo Razo LISW [address] [place] [address] Hair Or Beauty Salon Assistant Hematology/Oncology 09/14/24 [employer] Specialist Relationship Specialty Start Date End Date Dayami Puri MD [address] [place] [address] PCP - General Family Medicine 03/08/24 Jocelin Beach RN [employer] Flatbed Truck Driver Oncology 01/13/24 Aarti Bar DO [address] [place] [address] Hematology/Oncology 01/13/24 Prosper Narvaez [address] [facility] [address] Pulmonary Disease 03/15/24 Podlogar, Mady, HAND 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 [address] [place] [address] [facility] 06/04/24 Brunilda Vergara APRN.MIXER FOAM RUBBER [address] [facility] [place] [address] [facility] 09/09/24 Amparo Razo LISW [address] [place] [address] Hair Or Beauty Salon Assistant Hematology/Oncology 09/14/24 Sustainable Agriculture Specialist Relationship Specialty Start Date End Date Dayami Puri MD [address] [place] [address] PCP - General Family Medicine 03/08/24 Jocelin Beach RN [employer] Flatbed Truck Driver Oncology 01/13/24 Aarti Bar DO [address] [place] [address] Hematology/Oncology 01/13/24 Prosper Narvaez [address] [place] [phone] Pulmonary Disease 03/15/24 PodlogMady quarles APRN.MIXER FOAM RUBBER [address] [place] [address] [facility] 06/04/24 Brunilda Vergara HAND 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 [address] [place] [address] [facility] 09/09/24 Amparo Razo LISW [address] [place] [address] Hair Or Beauty Salon Assistant Hematology/Oncology 09/14/24 [employer] Agriculture Specialist Relationship Specialty Start Date End Date Dayami Puri MD [address] [place] [address] PCP - General Family Medicine 03/08/24 Jocelin Beach, RN [employer] Flatbed Truck Driver Oncology 01/13/24 Aarti Bar DO [address] [place], [place] [phone] Hematology/Oncology 01/13/24 Prosper Narvaez [address] [facility] [place] [address] Pulmonary Disease 03/15/24 PodlogarMady APRN.MIXER FOAM RUBBER [address] [place] [address] [employer] Family [facility] 06/04/24 Brunilda Vergara APRN.MIXER FOAM RUBBER [address] [place], [place] [address]67[address] [phone] Wash [employer] Greaser Family [facility] 09/09/24 Amparo Razo LISW [address] [place] [address] Hair Or Beauty Salon Assistant Hematology/Oncology 09/14/24 [employer] Agriculture Specialist Relationship Specialty Start Date End Date Dayami Puri MD [address] [place] [address] PCP - General Family Medicine 03/08/24 Jocelin Beach, RN [employer] Flatbed Truck Driver Oncology 01/13/24 Aarti Bar DO [address] [place] [address] Hematology/Oncology 01/13/24 Prosper Narvaez [address] [facility] [address] Pulmonary Disease 03/15/24 Podlogar, HODA Earl.MIXER FOAM RUBBER [address] [facility] [place] [address] [facility] 06/04/24 Amparo Razo, JON [address] [place] [address] Hair Or Beauty Salon Assistant Hematology/Oncology 09/14/24 Brunilda Vergara APRN.MIXER FOAM RUBBER [address] [facility] [place] [address] [facility] 09/19/24 [employer] Agriculture Specialist Relationship Specialty Start Date End Date Dayami Puri MD [address] [facility] [place] [address] PCP - General Family Medicine 03/08/24 Jocelin Beach RN [employer] Flatbed Truck Driver Oncology 01/13/24 Aarti Bar DO [address] [place] [address] Hematology/Oncology 01/13/24 Prosper Narvaez [address] [place] [address] Pulmonary Disease 03/15/24 Podlogar, HODA Earl.MIXER FOAM RUBBER [address] [facility] [place] [address] [employer] Family [facility] 06/04/24 Amparo Razo, JON [address] [place] [address] Hair Or Beauty Salon Assistant Hematology/Oncology 09/14/24 Brunilda Vergara APRN.MIXER FOAM RUBBER [address] [facility] [place] [address] [employer] Family [facility] 09/19/24 [employer] Specialist Relationship Specialty Start Date End Date Dayami Puri MD [address] [place] [address] PCP - General Family Medicine 03/08/24 Jocelin Beach RN [employer] Flatbed Truck Driver Oncology 01/13/24 Aarti Bar DO [address] [place] [address] Hematology/Oncology 01/13/24 Prosper Narvaez [address] [place] [phone] Pulmonary Disease 03/15/24 Podlogar, HODA Earl.MIXER FOAM RUBBER [address] [place] [address] [employer] Family [facility] 06/04/24 Amparo Razo LISW [address] [place] [address] Hair Or Beauty Salon Assistant Hematology/Oncology 09/14/24 Brunilda Vergara APRN.MIXER FOAM RUBBER [address] [place] [address] [facility] 09/19/24 [employer] Specialist Relationship Specialty Start Date End Date Dayami Puri MD [address] [place] [address] PCP - General Family Medicine 03/08/24 Jocelin Beach, RN [employer] Flatbed Truck Driver Oncology 01/13/24 Aarti Bar DO [address] [place] [address] Hematology/Oncology 01/13/24 Prosper Narvaez [address] [place] [address] Pulmonary Disease 03/15/24 Podlogar, HODA Earl.MIXER FOAM RUBBER [address] [place] [address] [facility] 06/04/24 Amparo Razo, FEED MILL OPERATOR [address] [place] [address] Hair Or Beauty Salon Assistant Hematology/Oncology 09/14/24 Brunilda Vergara APRN.MIXER FOAM RUBBER [address] [place] [address] [facility] 09/19/24 [employer] Specialist Relationship Specialty Start Date End Date Dayami Puri MD [address] [place] [address] PCP - General Family Medicine 03/08/24 Jocelin Beach, ALESSANDRA [employer] Flatbed Truck Driver Oncology 01/13/24 Aarti Bar DO [address] [place] [address] Hematology/Oncology 01/13/24 Prosper Narvaez [address] [place] [phone] Pulmonary Disease 03/15/24 Podlogar, HODA Earl.MIXER FOAM RUBBER [address] [place] [address] [facility] 06/04/24 Amparo Razo, FEED MILL OPERATOR [address] [place] [address] Hair Or Beauty Salon Assistant Hematology/Oncology 09/14/24 Brunilda Vergara APRN.MIXER FOAM RUBBER [address] [place] [address] [facility] 09/19/24 [employer] Specialist Relationship Specialty Start Date End Date Dayami Puri MD [address] [place] [address] PCP - General Family Medicine 03/08/24 Jocelin Beach RN [employer] Flatbed Truck Driver Oncology 01/13/24 Aarti Bar DO [address] [place], [place] 170681 Hematology/Oncology 01/13/24 Prosper Narvaez [address] [place], [place] [address]ANTHONY WOJCIECHChuy [place] [phone] Pulmonary Disease 03/15/24 MeeralogMady quarles HAND 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 [address] [place] [address] [facility] 06/04/24 Amparo Razo LISW [address] [place] [address] Hair Or Beauty Salon Assistant Hematology/Oncology 09/14/24 Brunilda Vergara APRN.MIXER FOAM RUBBER [address] [place] [address] [employer] Family [facility] 09/19/24 [employer] Specialist Relationship Specialty Start Date End Date Dayami Puri MD [address] [place], [place] [address] PCP - General Family Medicine 03/08/24 Jocelin Beach RN [employer] Flatbed Truck Driver Oncology 01/13/24 Aarti Bar DO [address] [place] [address] Hematology/Oncology 01/13/24 Prosper Narvaez [address] [place] [address] Pulmonary Disease 03/15/24 Podlogar, HODA Earl.MIXER FOAM RUBBER [address] [facility] [place] [address] [facility] 06/04/24 Amparo Razo, JON [address] [place] [address] Hair Or Beauty Salon Assistant Hematology/Oncology 09/14/24 Brunilda Vergara APRN.MIXER FOAM RUBBER [address] [place] [address] [facility] 09/19/24 [employer] Specialist Relationship Specialty Start Date End Date Dayami Puri MD [address] [facility] [place] [address] PCP - General Family Medicine 03/08/24 Jocelin Beach RN [employer] Flatbed Truck Driver Oncology 01/13/24 Arati Bar DO [address] [place] [address] Hematology/Oncology 01/13/24 Prosper Narvaez [address] [place] [address] Pulmonary Disease 03/15/24 Podlogar, HODA Earl.MIXER FOAM RUBBER [address] [place] [address] [facility] 06/04/24 Amparo Razo, FEED MILL OPERATOR [address] [place] [address] Hair Or Beauty Salon Assistant Hematology/Oncology 09/14/24 Brunilda Vergara APRN.MIXER FOAM RUBBER [address] [place] [address] [facility] 09/19/24 [employer] Specialist Relationship Specialty Start Date End Date Dayami Puri MD [address] [place] [address] PCP - General Family Medicine 03/08/24 Jocelin Beach, ALESSANDRA [employer] Flat[employer] Truck Driver Oncology 01/13/24 Aarti Bar DO [address] [place] [address] Hematology/Oncology 01/13/24 Prosper Narvaez [address] [place] [address] [place] [address] Pulmonary Disease 03/15/24 PodlogarMady APRN.MIXER FOAM RUBBER [address] [place] [address] [facility] 06/04/24 Amparo Razo LISW [address] [place] [address] Hair Or Beauty Salon Assistant Hematology/Oncology 09/14/24 Brunilda Vergara, HAND 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 [address] [place] [address] [facility] 09/19/24 [employer]ustainable Agriculture Specialist Relationship Specialty Start Date End Date Dayami Puri MD [address] [place] [address] PCP - General Family Medicine 03/08/24 Jocelin Beach RN [employer] Flatbed Truck Driver Oncology 01/13/24 Aarti Bar DO [address] [place], [place] [id number] [phone] Hematology/Oncology 01/13/24 Prosper Narvaez [address] [place] [address] Pulmonary Disease 03/15/24 Podlogar, Mady, HAND 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 [address] [place] [address] [facility] 06/04/24 Ampaor Razo LISW [address] [place] [address] Hair Or Beauty Salon Assistant Hematology/Oncology 09/14/24 Brunilda Vergara APRN.MIXER FOAM RUBBER [address] [place] [address] [facility] 09/19/24 [employer]ustainable Agriculture Specialist Relationship Specialty Start Date End Date Dayami Puri MD [address] [place] [address] PCP - General Family Medicine 03/08/24 Jocelin Beach, RN [employer] Flatbed Truck Driver Oncology 01/13/24 Aarti Bar DO [address] [place] [address] Hematology/Oncology 01/13/24 Prosper Narvaez [address] [place] [address] Pulmonary Disease 03/15/24 Podlogar, Mady, HAND 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 [address] [place] [address] [facility] 06/04/24 Amparo Razo, FEED MILL OPERATOR [address] [facility] [address] Hair Or Beauty Salon Assistant Hematology/Oncology 09/14/24 Brunilda Vergara APRN.MIXER FOAM RUBBER [address] [facility] [place] [address] [facility] 09/19/24 Sustainable Agriculture Specialist Relationship Specialty Start Date End Date Dayami Puri MD [address] [facility] [place] [address] PCP - General Family Medicine 03/08/24 Jocelin Beach RN [employer] Flatbed Truck Driver Oncology 01/13/24 Aarti Bar DO [address] [place] [address] Hematology/Oncology 01/13/24 Prosper Narvaez [address] [place] [phone] Pulmonary Disease 03/15/24 PodlogarMady APRN.MIXER FOAM RUBBER [address] [facility] [place] [address] [facility] 06/04/24 Amparo Razo, JON [address] [place] [address] Hair Or Beauty Salon Assistant Hematology/Oncology 09/14/24 Brunilda Vergara APRN.MIXER FOAM RUBBER [address] [place] [address] [facility] 09/19/24 Sustainable Agriculture Specialist Relationship Specialty Start Date End Date Dayami Puri MD [address] [place] [address] PCP - General Family Medicine 03/08/24 Jocelin Beach RN [employer] Flatbed Truck Driver Oncology 01/13/24 Aarti Bar DO [address] [place], [place] 800696 [phone] Hematology/Oncology 01/13/24 Prosper Narvaez [address] [facility] [place] [address] Pulmonary Disease 03/15/24 PodlogarMady APRN.MIXER FOAM RUBBER [address] [place] [address] [employer] And Greaser Family [facility] 06/04/24 Amparo Razo LISW [address] [place] [address] Hair Or Beauty Salon Assistant Hematology/Oncology 09/14/24 Brunilda Vergara APRN.MIXER FOAM RUBBER [address] [place], [place] 16[address]17 [phone] [facility] 09/19/24 Sustainable Agriculture Specialist Relationship Specialty Start Date End Date Dayami Puri MD [address] [place] [address] PCP - General Family Medicine 03/08/24 Jocelin Beach RN [employer] Flatbed Truck Driver Oncology 01/13/24 Aarti Bar DO [address] [place] [address] Hematology/Oncology 01/13/24 Prosper Narvaez [address] [place] [address] Pulmonary Disease 03/15/24 Podlogar, HODA Earl.MIXER FOAM RUBBER [address] [facility] [place] [address] [facility] Family [facility] 06/04/24 DongAmparo andrade, FEED MILL OPERATOR [address] [place] [address] Hair Or Beauty Salon Assistant Hematology/Oncology 09/14/24 Brunilda Vergara APRN.MIXER FOAM RUBBER [address] [facility] [place] [address] [facility] 09/19/24 Sustainable Agriculture Specialist Relationship Specialty Start Date End Date Dayami Puri MD [address] [facility] [place] [address] PCP - General Family Medicine 03/08/24 Jocelin Beach RN [employer] Flatbed Truck Driver Oncology 01/13/24 Aarti Bar DO [address] [place] [address] Hematology/Oncology 01/13/24 Prosper Narvaez [address] [place] [phone] Pulmonary Disease 03/15/24 Podlogar, HODA Earl.MIXER FOAM RUBBER [address] [facility] [place] [address] [facility] 06/04/24 Amparo Razo, FEED MILL OPERATOR [address] [place] [address] Hair Or Beauty Salon Assistant Hematology/Oncology 09/14/24 Brunilda Vergara APRN.MIXER FOAM RUBBER [address] [facility] [place] [address] [facility] 09/19/24 Sustainable Agriculture Specialist Relationship Specialty Start Date End Date Dayami Puri MD [address] [facility] [place] [address] PCP - General Family Medicine 03/08/24 Jocelin Beach RN [employer] Flatbed Truck Driver Oncology 01/13/24 Aarti Bar DO [address] [place] [address] Hematology/Oncology 01/13/24 Prosper Narvaez [address] [facility] [address] Pulmonary Disease 03/15/24 Podlogar, HODA Earl.MIXER FOAM RUBBER [address] [facility] [address] [facility] 06/04/24 Amparo Razo LISW [address] [place] [address] Hair Or Beauty Salon Assistant Hematology/Oncology 09/14/24 Sustainable Agriculture Specialist Relationship Specialty Start Date End Date Dayami Puri MD [address] [facility] [place] [address] PCP - General Family Medicine 03/08/24 Jocelin Beach RN [employer] Flatbed Truck Driver Oncology 01/13/24 Aarti Bar DO [address] [place] [address] Hematology/Oncology 01/13/24 Prosper Narvaez [address] [place] [address] Pulmonary Disease 03/15/24 Podlogar, HODA Earl.MIXER FOAM RUBBER [address] [place] [address] [facility] 06/04/24 Amparo Razo LISW [address] [place] [address] Hair Or Beauty Salon Assistant Hematology/Oncology 09/14/24 Sustainable Agriculture Specialist Relationship Specialty Start Date End Date Dayami Puri MD [address] [place], [place] [address]49641 PCP - General Family Medicine 03/08/24 Jocelin Beach RN [employer] Flatbed Truck Driver Oncology 01/13/24 Aarti Bar DO [address] [place], [place] [address] Hematology/Oncology 01/13/24 Prosper Narvaez [address] [place] [address] [place] [phone] Pulmonary Disease 03/15/24 PodlogarMady APRN.MIXER FOAM RUBBER [address] [place], [place] [address]90[address] [facility] 06/04/24 Amparo Razo LISW [address] [place] [address] Hair Or Beauty Salon Assistant Hematology/Oncology 09/14/24 Team Status: Active Member Role [...] November 24, 2024 End: November 24, 2024 Sustainable Agriculture Specialist Relationship Specialty Start Date End Date Dayami Puri MD [address] [place] [address] PCP - General Family Medicine 03/08/24 Jocelin Beach RN [employer] Flatbed Truck Driver Oncology 01/13/24 Aarti Bar DO [address] [facility] [place] [address] Hematology/Oncology 01/13/24 Prosper Narvaez [address] [place] [place] [address] Pulmonary Disease 03/15/24 Podlogar, HODA Earl.MIXER FOAM RUBBER [address] [facility] [place] [address] [facility] 06/04/24 Amparo Razo LISW [address] [facility] [place] [address] Hair Or Beauty Salon Assistant Hematology/Oncology 09/14/24 Sustainable Agriculture Specialist Relationship Specialty Start Date End Date Dayami Puri MD [address] [facility] [place] [place] [address] PCP - General Family Medicine 03/08/24 Jocelin Beach RN [employer] Flatbed Truck Driver Oncology 01/13/24 Aarti Bar DO [address] [place] [address] Hematology/Oncology 01/13/24 Prosper Narvaez [address] [facility] [place] [address] Pulmonary Disease 03/15/24 Podlogar, HIRAM EarlN.MIXER FOAM RUBBER [address] [facility] [place] [address] [facility] 06/04/24 Amparo Razo LISW [address] [facility] [address] Hair Or Beauty Salon Assistant Hematology/Oncology 09/14/24 Sustainable Agriculture Specialist Relationship Specialty Start Date End Date Dayami Puri MD [address] [place] [address] PCP - General Family Medicine 03/08/24 Jocelin Beach, RN [employer] Flatbed Truck Driver Oncology 01/13/24 Aarti Bar DO [address] [place] [address] Hematology/Oncology 01/13/24 Prosper Narvaez [address] [facility] [place] [address] Pulmonary Disease 03/15/24 PodlogarMady APRN.MIXER FOAM RUBBER [address] [place] [address] [facility] 06/04/24 Amparo Razo LISW [address] [place] [address] Hair Or Beauty Salon Assistant Hematology/Oncology 09/14/24 Sustainable Agriculture Specialist Relationship Specialty Start Date End Date Dayami Puri MD [address] [place] [address] PCP - General Family Medicine 03/08/24 Jocelin Beach RN [employer] Flatbed Truck Driver Oncology 01/13/24 Aarti Bar DO [address] [place] [address] Hematology/Oncology 01/13/24 Prosper Narvaez [address] [place] [address] Pulmonary Disease 03/15/24 Podlogar, HODA Earl.MIXER FOAM RUBBER [address] [facility] [place] [address] [facility] 06/04/24 Amparo Razo, FEED MILL OPERATOR [address] [place] [address] Hair Or Beauty Salon Assistant Hematology/Oncology 09/14/24 Sustainable Agriculture Specialist Relationship Specialty Start Date End Date Dayami Puri MD [address] [facility] [place] [address] PCP - General Family Medicine 03/08/24 Jocelin Beach RN [employer] Flatbed Truck Driver Oncology 01/13/24 Aarti Bar DO [address] [place] [address] Hematology/Oncology 01/13/24 Prosper Narvaez [address] [place] [phone] Pulmonary Disease 03/15/24 Podlogar, HODA Earl.MIXER FOAM RUBBER [address] [facility] [place] [address] [facility] 06/04/24 Amparo Razo, FEED MILL OPERATOR [address] [place] [address] Hair Or Beauty Salon Assistant Hematology/Oncology 09/14/24 Brunilda Vergara APRN.MIXER FOAM RUBBER [address] [facility] [place] [address] [facility] 12/08/24 Sustainable Agriculture Specialist Relationship Specialty Start Date End Date Dayami Puri MD [address] [facility] [place] [address] PCP - General Family Medicine 03/08/24 Jocelin Beach RN [employer] Flatbed Truck Driver Oncology 01/13/24 Aarti Bar DO [address] [place], [place] [address]141 Hematology/Oncology 01/13/24 Prosper Narvaez [address] [facility] [place] [address] Pulmonary Disease 03/15/24 PodlogarMady APRN.MIXER FOAM RUBBER [address] [place] [address] Wash And Greaser Family [facility] 06/04/24 Amparo Razo LISW [address] [place] [address] Hair Or Beauty Salon Assistant Hematology/Oncology 09/14/24 Brunilda Vergara APRN.MIXER FOAM RUBBER [address] [place], [place] [address] [facility] 12/08/24 Sustainable Agriculture Specialist Relationship Specialty Start Date End Date Dayami Puri MD [address] [place] [address] PCP - General Family Medicine 03/08/24 Jocelin Beach RN [employer] Flatbed Truck Driver Oncology 01/13/24 Aarti Bar DO [address] [place] [address] Hematology/Oncology 01/13/24 Prosper Narvaez [address] [place] [address] Pulmonary Disease 03/15/24 Podlogar, HODA Earl.MIXER FOAM RUBBER [address] [facility] [place] [address] [facility] 06/04/24 Amparo Razo, FEED MILL OPERATOR [address] [place] [address] Hair Or Beauty Salon Assistant Hematology/Oncology 09/14/24 Brunilda Vergara APRN.MIXER FOAM RUBBER [address] [facility] [place] [address] [facility] 12/08/24 Sustainable Agriculture Specialist Relationship Specialty Start Date End Date Dayami Puri MD [address] [facility] [place] [address] PCP - General Family Medicine 03/08/24 Jocelin Beach RN [employer] Flatbed Truck Driver Oncology 01/13/24 Aarti Bar DO [address] [place] [address] Hematology/Oncology 01/13/24 Prosper Narvaez [address] [place] [phone] Pulmonary Disease 03/15/24 PodlogarMady APRN.MIXER FOAM RUBBER [address] [facility] [place] [address] [facility] 06/04/24 Amparo Razo, FEED MILL OPERATOR [address] [place] [address] Hair Or Beauty Salon Assistant Hematology/Oncology 09/14/24 Brunilda Vergara APRN.MIXER FOAM RUBBER [address] [facility] [place] [address] [facility] 12/08/24 Sustainable Agriculture Specialist Relationship Specialty Start Date End Date Dayami Puri MD [address] [place] [address] PCP - General Family Medicine 03/08/24 Jocelin Beach RN [employer] Flatbed Truck Driver Oncology 01/13/24 Aarti Bar DO [address] [place] [address] Hematology/Oncology 01/13/24 Prosper Narvaez [address] [facility] [place] [address] Pulmonary Disease 03/15/24 PodlogarMady APRN.MIXER FOAM RUBBER [address] [place] [address] [facility] 06/04/24 Amparo Razo LISW [address] [place] [address] Hair Or Beauty Salon Assistant Hematology/Oncology 09/14/24 Brunilda Vergara APRN.MIXER FOAM RUBBER [address] [place] [address] Wash And Greaser Family [facility] 12/08/24 Sustainable Agriculture Specialist Relationship Specialty Start Date End Date Dayami Puri MD [address] [place] [address] PCP - General Family Medicine 03/08/24 Jocelin Beach RN [employer] Flatbed Truck Driver Oncology 01/13/24 Aarti Bar DO [address] [place] [address] Hematology/Oncology 01/13/24 Prosper Narvaez [address] [place] [phone] Pulmonary Disease 03/15/24 Podlogar, HIRAM EarlN.MIXER FOAM RUBBER [address] [facility] [place] [address] [facility] 06/04/24 Amparo Razo, FEED MILL OPERATOR [address] [place] [address] Hair Or Beauty Salon Assistant Hematology/Oncology 09/14/24 Brunilda Vergara APRN.MIXER FOAM RUBBER [address] [facility] [place] [address] [facility] 12/08/24 Sustainable Agriculture Specialist Relationship Specialty Start Date End Date Dayami Puri MD [address] [place] [address] PCP - General Family Medicine 03/08/24 Jocelin Beach RN [employer] Flatbed Truck Driver Oncology 01/13/24 Aarti Bar DO [address] [place], [place] [address] Hematology/Oncology 01/13/24 Prosper Narvaez [address] [place] [phone] Pulmonary Disease 03/15/24 Podlogar, Mady, HAND 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 [address] [facility] [place] [address] [facility] 06/04/24 Amparo Razo, FEED MILL OPERATOR [address] [place] [address] Hair Or Beauty Salon Assistant Hematology/Oncology 09/14/24 Brunilda Vergara APRN.MIXER FOAM RUBBER [address] [place] [address] [facility] 12/08/24 Team Status: Active Member [...] Provider Active Start: January 09, 2025 Dr. Angela Ann MD Other Provider Active Star t: [...] Provider Active Start: January 09, 2025 Dr. Polo Nguyen MD Other Provider Active Sta rt: January 09, 2025 Dr. Socrates Christensen MD Other Provider Active Start: January 09, 2025 Dr. Marco Antonio Churchill MD Other Provider Active Start : January 09, 2025 Dr. Srinivasan Baker MD Admit Provider Active Sta rt: January 09, 2025 Dr. Srinivasan Baker MD Attending Provider Active Start: January 09, 2025 Sustainable Agriculture Specialist Relationship Specialty Start Date End Date Dayami Puri MD [address] [place] [address] PCP - General Family Medicine 03/08/24 Jocelin Beach RN [employer] Flatbed Truck Driver Oncology 01/13/24 Aarti Bar DO [address] [place], [place] [address] Hematology/Oncology 01/13/24 Prosper Narvaez [address] [place] [phone] Pulmonary Disease 03/15/24 PodlogarMady APRN.MIXER FOAM RUBBER [address] [place], [place] [address] [facility] 06/04/24 Amparo Razo LISW [address] [place] [address] Hair Or Beauty Salon Assistant Hematology/Oncology 09/14/24 Brunilda Vergara APRN.MIXER FOAM RUBBER [address] [facility] [place] [address] [facility] 12/08/24 Sustainable Agriculture Specialist Relationship Specialty Start Date End Date Dayami Puri MD [address] [facility], [place] [address] PCP - General Family Medicine 03/08/24 Jocelin Beach RN [employer] Flatbed Truck Driver Oncology 01/13/24 Aarti Bar DO [address] [place], [place] [address] Hematology/Oncology 01/13/24 Prosper Narvaez [address] [place] [phone] Pulmonary Disease 03/15/24 PodlogarMady, HAND 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 [address] [facility] [place] [address] [facility] 06/04/24 Amparo Razo LISW [address] [place] [address] Hair Or Beauty Salon Assistant Hematology/Oncology 09/14/24 Brunilda Vergara, HAND 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 [address] [place] [address] Wash And Greaser [facility] 12/08/24 Sustainable Agriculture Specialist Relationship Specialty Start Date End Date Dayami Puri MD [address] [facility] [place] [id number] PCP - General Family Medicine 03/08/24 Jocelin Beach RN [employer] Flatbed Truck Driver Oncology 01/13/24 Aarti Bar DO [address] [place], [place] [address] Hematology/Oncology 01/13/24 Prosper Narvaez [facility] [place] [address] Pulmonary Disease 03/15/24 PodlogarMady APRN.MIXER FOAM RUBBER [address] [place] [id number] [facility] 06/04/24 Amparo Razo LISW [address] [place] [address] Hair Or Beauty Salon Assistant Hematology/Oncology 09/14/24 Brunilda Vergara APRN.MIXER FOAM RUBBER [address] [place], [place] [id number] [facility] 12/08/24 Team Status: Inactive Member Role/Relationship Status Dates Dr. Chaitanya Puri MD Primary Care Provider Acti ve Start: January 09, 2025 End: January 10, 2025 Dr. Alexandro Navarro DO Emergency Provider Active Start : January 09, 2025 End: January 10, 2025 Dr. Srinivasan Baker MD Admit Provider Active Sta rt: January 09, 2025 End: January 10, 2025 Dr. Srinivasan Baker MD Other Provider Active Sta rt: January 09, 2025 End: January 10, 2025 Dr. Darin Younger MD Other Provider Active Start: January 09, 2025 End: January 10, 2025 Dr. Cesar Adair MD Other Provider Active Start: January 09, 2025 End: January 10, 2025 Dr. Kalin Cobos MD Other Provider Active Star t: January 09, 2025 End: January 10, 2025 Dr. Gordo Chaves DO Other Provider Active Start : January 09, 2025 End: January 10, 2025 Dr. Polo Nguyen MD Other Provider Active Sta rt: January 09, 2025 End: January 10, 2025 Dr. Barrett Brink MD Other Provider Active St art: January 09, 2025 End: January 10, 2025 Dr. Fab Zarate MD Other Provider Active S tart: January 09, 2025 End: January 10, 2025 Dr. Ketty Napoles MD Other Provider Active Start: January 09, 2025 End: January 10, 2025 Dr. Parminder Carroll MD Other Provider Active Start : January 09, 2025 End: January 10, 2025 Dr. Socrates Christensen MD Other Provider Active Start: January 09, 2025 End: January 10, 2025 Dr. Marco Antonio Churchill MD Other Provider Active Start : January 09, 2025 End: January 10, 2025 Dr. Angela Ann MD Other Provider Active Star t: January 09, 2025 End: January 10, 2025 Dr. Sindhu Banks MD Other Provider Active Sta rt: January 09, 2025 End: January 10, 2025 Dr. Nicky Zavala MD Other Provider Active Sta rt: January 09, 2025 End: January 10, 2025 Dr. Lex Barillas MD Other Provider Active Star t: January 09, 2025 End: January 10, 2025 Dr. Bj Fisher MD Other Provider Active St art: January 09, 2025 End: January 10, 2025 Dr. Kyle Siddiqi MD Other Provider Active Star t: January 09, 2025 End: January 10, 2025 Dr. Eddie Acosta DO Other Provider Active St art: January 09, 2025 End: January 10, 2025 Dr. Felipa Christianson MD Other Provider Active Start: January 09, 2025 End: January 10, 2025 Dr. Jam Lewis MD Other Provider Active St art: January 09, 2025 End: January 10, 2025 Dr. Richy Sales DO Other Provider Active Start: January 09, 2025 End: January 10, 2025 Dr. Nile Levy MD Other Provider Active Star t: January 09, 2025 End: January 10, 2025 Dr. Wisam Fermin MD Other Provider Active Sta rt: January 09, 2025 End: January 10, 2025 Dr. Lencho Ty DO Attending Provider Active Start: January 09, 2025 End: January 10, 2025 Team Status: Active Member Role/Relationship Status Dates Dr. Chaitanya Puri MD Primary Care Provider Acti ve Start: January 09, 2025 Dr. Alexandro Navarro DO Emergency Provider Active Start : January 09, 2025 Dr. Srinivasan Baker MD Admit Provider Active Sta rt: January 09, 2025 Dr. Srinivasan Baker MD Attending Provider Active Start: January 09, 2025 Dr. Srinivasan Baker MD Other Provider Active Sta rt: January 09, 2025 Dr. Darin Younger MD Other Provider Active Start: January 09, 2025 Dr. Cesar Adair MD Other Provider Active Start: January 09, 2025 Dr. Kalin Cobos MD Other Provider Active Star t: January 09, 2025 Dr. Gordo Chaves DO Other Provider Active Start : January 09, 2025 Dr. Polo Nguyen MD Other Provider Active Sta rt: January 09, 2025 Dr. Barertt Brink MD Other Provider Active St art: January 09, 2025 Dr. Fab Zarate MD Other Provider Active S tart: January 09, 2025 Dr. Ketty Napoles MD Other Provider Active Start: January 09, 2025 Dr. Parminder Carroll MD Other Provider Active Start : January 09, 2025 Dr. Socrates Christensen MD Other Provider Active Start: January 09, 2025 Dr. Marco Antonio Churchill MD Other Provider Active Start : January 09, 2025 Dr. Angela Ann MD Other Provider Active Star t: January 09, 2025 Dr. Sindhu Banks MD Other Provider Active Sta rt: January 09, 2025 Dr. Nicky Zavala MD Other Provider Active Sta rt: January 09, 2025 Dr. Lex Barillas MD Other Provider Active Star t: January 09, 2025 Dr. Bj Fisher MD Other Provider Active St art: January 09, 2025 Dr. Kyle Siddiqi MD Other Provider Active Star t: January 09, 2025 Dr. Eddie Acosta DO Other Provider Active St art: January 09, 2025 Dr. Felipa Chrsitianson MD Other Provider Active Start: January 09, 2025 Dr. Jam Lewis MD Other Provider Active St art: January 09, 2025 Dr. Richy Sales DO Other Provider Active Start: January 09, 2025 Dr. Nile Levy MD Other Provider Active Star t: January 09, 2025 Dr. Wisam Fermin MD Other Provider Active Sta rt: January 09, 2025 Team Status: Active Member Role/Relationship Status Dates Dr. Chaitanya Puri MD Primary Care Provider Acti ve Start: January 10, 2025 Dr. Alexandro Navarro DO Emergency Provider Active Start : January 10, 2025 Dr. Srinivasan Baker MD Admit Provider Active Sta rt: January 10, 2025 Dr. Srinivasan Baker MD Other Provider Active Sta rt: January 10, 2025 Dr. Darin Younger MD Other Provider Active Start: January 10, 2025 Dr. Cesar Adair MD Other Provider Active Start: January 10, 2025 Dr. Kalin Cobos MD Other Provider Active Star t: January 10, 2025 Dr. Gordo Chaves DO Attending Provider Active S tart: January 10, 2025 Dr. Gordo Chaves DO Other Provider Active Start : January 10, 2025 Dr. Polo Nguyen MD Other Provider Active Sta rt: January 10, 2025 Dr. Barrett Brink MD Other Provider Active St art: January 10, 2025 Dr. Fab Zarate MD Other Provider Active S tart: January 10, 2025 Dr. Ketty Napoles MD Other Provider Active Start: January 10, 2025 Dr. Parminder Carroll MD Other Provider Active Start : January 10, 2025 Dr. Socrates Christensen MD Other Provider Active Start: January 10, 2025 Dr. Marco Antonio Churchill MD Other Provider Active Start : January 10, 2025 Dr. Angela Ann MD Other Provider Active Star t: January 10, 2025 Dr. Sindhu Banks MD Other Provider Active Sta rt: January 10, 2025 Dr. Nicky Zavala MD Other Provider Active Sta rt: January 10, 2025 Dr. Lex Barillas MD Other Provider Active Star t: January 10, 2025 Dr. jB Fisher MD Other Provider Active St art: January 10, 2025 Dr. Kyle Siddiqi MD Other Provider Active Star t: January 10, 2025 Dr. Eddie Acosta DO Other Provider Active St art: January 10, 2025 Dr. Felipa Christianson MD Other Provider Active Start: January 10, 2025 Dr. Jam Lewis MD Other Provider Active St art: January 10, 2025 Dr. Richy Sales , Other Provider Active Start: January 10, 2025 Dr. Nile Levy MD Other Provider Active Star t: January 10, 2025 Dr. Wisam Fermin MD Other Provider Active Sta rt: January 10, 2025 Dr. Lencho Ty DO Other Provider Active S tart: January 10, 2025 [employer] Specialist Relationship Specialty Start Date End Date Dayami Puri MD [address] [place], [place] [id number] PCP - General Family Medicine 03/08/24 Jocelin Beach RN [employer] Flat[employer] Driver Oncology 01/13/24 Aarti Bar DO [address] [place], [place] [address] Hematology/Oncology 01/13/24 Prosper Narvaez [address] [place] [address] Pulmonary Disease 03/15/24 Mady Armenta APRN.CNP [address] [place], [place] [address] [employer] Family Medicine 06/04/24 Amparo Razo LISW [address] [place] [address] [employer] Beauty Salon Assistant Hematology/Oncology 09/14/24 Brunilda Vergara HAND 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 [address] [place], [place] [address] [employer] Family [facility] 12/08/24 [employer] Specialist Relationship Specialty Start Date End Date Dayami Puri MD [address] [place], [place] [address] PCP - General Family Medicine 03/08/24 Jocelin Beach RN [employer] Driver Oncology 01/13/24 Aarti Bar DO [address], [place] [id number] Hematology/Oncology 01/13/24 Prosper Narvaez [address] [place] [address] [place] [phone] Pulmonary Disease 03/15/24 PodlogarMady HAND 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 [address] [place] [address] [facility] [employer] Family [facility] 06/04/24 Amparo Razo LISW [address] [place] [address] Hair Or Beauty Salon Assistant Hematology/Oncology 09/14/24 Brunilda Vergara, HAND 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 [address] [place] [address] [employer] [facility] 12/08/24 [employer] Specialist Relationship Specialty Start Date End Date Dayami Puri MD [address] [place] [address] PCP - General Family Medicine 03/08/24 Jocelin Beach RN [employer] Driver Oncology 01/13/24 Aarti Bar DO [address] [place] [address] Hematology/Oncology 01/13/24 Prosper Narvaez [address] [place] [address] Pulmonary Disease 03/15/24 Podlogar, HIRAM EarlN.MIXER FOAM RUBBER [address] [place] [address] [employer] Family [facility] 06/04/24 Amparo Razo LISW [address] [place] [address] Hair Or Beauty Salon Assistant Hematology/Oncology 09/14/24 Brunilda Vergara APRN.MIXER FOAM RUBBER [address] [place] [address] [facility] 12/08/24 [employer] Specialist Relationship Specialty Start Date End Date Dayami Puri MD [address] [place] [address] PCP - General Family Medicine 03/08/24 Jocelin Beach, ALESSANDRA [employer] Driver Oncology 01/13/24 Aarti Bar DO [address] [place] [address] Hematology/Oncology 01/13/24 Prosper Narvaez [address] [place] [address] Pulmonary Disease 03/15/24 Podlogar, HIRAM EarlN.MIXER FOAM RUBBER [address] [place] [address] [facility] 06/04/24 Amparo Razo, JON [address] [place] [address] Hair Or Beauty Salon Assistant Hematology/Oncology 09/14/24 Brunilda Vergara APRN.MIXER FOAM RUBBER [address] [facility] [place] [address] [employer] 12/08/24 [employer] Specialist Relationship Specialty Start Date End Date Dayami Puri MD [address] [facility] [place] [address] PCP - General Family Medicine 03/08/24 Jocelin Beach, RN [employer] Oncology 01/13/24 Aarti Bar DO [address] [place] [address] Hematology/Oncology 01/13/24 Prosper Narvaez [address] [place] [phone] Pulmonary Disease 03/15/24 PodlogarMady APRN.MIXER FOAM RUBBER [address] [facility] [place] [address] [employer] Family [facility] 06/04/24 Amparo Razo LISW [address] [place] [address] Hair Or Beauty Salon Assistant Hematology/Oncology 09/14/24 Brunilda Vergara, HODA.MIXER FOAM RUBBER [address] [facility] [place] [address] [facility] 12/08/24 [employer] Specialist Relationship Specialty Start Date End Date Dayami Puri MD [address] [facility] [place] [address] PCP - General Family Medicine 03/08/24 Jocelin Beach, RN [employer] Driver Oncology 01/13/24 Aarti Bar DO [address] [place], [place] [phone] Hematology/Oncology 01/13/24 Prosper Narvaez [address] [facility] [place] [address] Pulmonary Disease 03/15/24 Podlogar, Mady, HAND 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 [address] [place] [address] [facility] 06/04/24 Amparo Razo LISW [address] [place] [address] Hair Or Beauty Salon Assistant Hematology/Oncology 09/14/24 Brunilda Vergara APRN.MIXER FOAM RUBBER [address] [place] [address] [facility] 12/08/24 [employer] Specialist Relationship Specialty Start Date End Date Dayami Puri MD [address] [place] [address] PCP - General Family Medicine 03/08/24 Jocelin Beach RN [employer] Driver Oncology 01/13/24 Aarti Bar DO [address] [place] [address] Hematology/Oncology 01/13/24 Prosper Narvaez [address] [place] [address] Pulmonary Disease 03/15/24 Podlogar, Mady, HAND 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 [address] [place] [address] [employer] Family [facility] 06/04/24 Amparo Razo, JON [address] [place] [address] Hair Or Beauty Salon Assistant Hematology/Oncology 09/14/24 Brunilda Vergara APRN.MIXER FOAM RUBBER [address] [place] [address] [facility] 12/08/24 [employer] Specialist Relationship Specialty Start Date End Date Dayami Puri MD [address] [place] [address] PCP - General Family Medicine 03/08/24 Jocelin Beach RN [employer] Driver Oncology 01/13/24 Aarti Bar DO [address] [place] [address] Hematology/Oncology 01/13/24 Prosper Narvaez [address] [place] [phone] Pulmonary Disease 03/15/24 PodMady ivla APRN.MIXER FOAM RUBBER [address] [place] [address] [employer] Family [facility] 06/04/24 Amparo Razo, JON [address] [place] [address] Hair Or Beauty Salon Assistant Hematology/Oncology 09/14/24 Brunilda Vergara APRN.MIXER FOAM RUBBER [address] [place] [address] [facility] Family [facility] 12/08/24 Team Status: Active Member Role/Relationship Status Dates Dr. Chaitanya Puri MD Primary care physician [place] Team Status: Inactive Member Role/Relationship Status Dates Dr. Chaitanya Puri MD Primary care physician [place] Start: January 09, 2025 End: January 10, 2025 Dr. Alexandro Navarro , Emergency Department Physician Active Start: January 09, 2025 End: January 10, 2025 Dr. Srinivasan Baker MD Admitting physician Active Start: January 09, 2025 End: January 10, 2025 Dr. Srinivasan Baker MD Nurse Practitioner Active Start: January 09, 2025 End: January 10, 2025 Dr. Darin Younger MD Nurse Practitioner Active Start: January 09, 2025 End: January 10, 2025 Dr. Cesar Adair MD Nurse Practitioner Active Sta rt: January 09, 2025 End: January 10, 2025 Dr. Kalin Cobos MD Nurse Practitioner Active Start: January 09, 2025 End: January 10, 2025 Dr. Gordo Chaves DO Nurse Practitioner Active S tart: January 09, 2025 End: January 10, 2025 Dr. Polo Nguyen MD Nurse Practitioner Active Start: January 09, 2025 End: January 10, 2025 Dr. Barrett Brink MD Nurse Practitioner Active Start: January 09, 2025 End: January 10, 2025 Dr. Fab Zarate MD Nurse Practitioner Active Start: January 09, 2025 End: January 10, 2025 Dr. Ketty Napoles MD Nurse Practitioner Active Start: January 09, 2025 End: January 10, 2025 Dr. Parminder Carroll MD Nurse Practitioner Active S tart: January 09, 2025 End: January 10, 2025 Dr. Socrates Christensen MD Nurse Practitioner Active St art: January 09, 2025 End: January 10, 2025 Dr. Marco Antonio Churchill MD Nurse Practitioner Active S tart: January 09, 2025 End: January 10, 2025 Dr. Angela Ann MD Nurse Practitioner Active Start: January 09, 2025 End: January 10, 2025 Dr. Sindhu Banks MD Nurse Practitioner Active Start: January 09, 2025 End: January 10, 2025 Dr. Nicky Zavala MD Nurse Practitioner Active Start: January 09, 2025 End: January 10, 2025 Dr. Lex Barillas MD Nurse Practitioner Active Start: January 09, 2025 End: January 10, 2025 Dr. Bj Fisher MD Nurse Practitioner Active Start: January 09, 2025 End: January 10, 2025 Dr. Kyle Siddiqi MD Nurse Practitioner Active Start: January 09, 2025 End: January 10, 2025 Dr. Eddie Acosta , Nurse Practitioner Active Start: January 09, 2025 End: January 10, 2025 Dr. Felipa Christianson MD Nurse Practitioner Active St art: January 09, 2025 End: January 10, 2025 Dr. Jam Lewis MD Nurse Practitioner Active Start: January 09, 2025 End: January 10, 2025 Dr. Richy Sales DO Nurse Practitioner Active Start: January 09, 2025 End: January 10, 2025 Dr. Nile Levy MD Nurse Practitioner Active Start: January 09, 2025 End: January 10, 2025 Dr. Wisam Fermin MD Nurse Practitioner Active Start: January 09, 2025 End: January 10, 2025 Dr. Lencho Ty DO Attending physician Active Start: January 09, 2025 End: January 10, 2025 Team Status: Active Member Role/Relationship Status Dates Dr. Chaitanya Puri MD Primary care physician [place] Start: January 09, 2025 Dr. Alexandro Navarro DO Emergency Department Physician Active Start: January 09, 2025 Dr. Srinivasan Baker MD Admitting physician Active Start: January 09, 2025 Dr. Srinivasan Baker MD Attending physician Active Start: January 09, 2025 Dr. Srinivasan Baker MD Nurse Practitioner Active Start: January 09, 2025 Dr. Darin Younger MD Nurse Practitioner Active Start: January 09, 2025 Dr. Cesar Adair MD Nurse Practitioner Active Sta rt: January 09, 2025 Dr. Kalin Cobos MD Nurse Practitioner Active Start: January 09, 2025 Dr. Gordo Chaves DO Nurse Practitioner Active S tart: January 09, 2025 Dr. Polo Nguyen MD Nurse Practitioner Active Start: January 09, 2025 Dr. Barrett Brink MD Nurse Practitioner Active Start: January 09, 2025 Dr. Fab Zarate MD Nurse Practitioner Active Start: January 09, 2025 Dr. Ketty Napoles MD Nurse Practitioner Active Start: January 09, 2025 Dr. Parminder Carroll MD Nurse Practitioner Active S tart: January 09, 2025 Dr. Socrates Christensen MD Nurse Practitioner Active St art: January 09, 2025 Dr. Marco Antonio Churchill MD Nurse Practitioner Active S tart: January 09, 2025 Dr. Angela Ann MD Nurse Practitioner Active Start: January 09, 2025 Dr. Sindhu Banks MD Nurse Practitioner Active Start: January 09, 2025 Dr. Nicky Zavala MD Nurse Practitioner Active Start: January 09, 2025 Dr. Lex Barillas MD Nurse Practitioner Active Start: January 09, 2025 Dr. Bj Fisher MD Nurse Practitioner Active Start: January 09, 2025 Dr. Kyle Siddiqi MD Nurse Practitioner Active Start: January 09, 2025 Dr. Eddie Acosta DO Nurse Practitioner Active Start: January 09, 2025 Dr. Felipa Christianson MD Nurse Practitioner Active St art: January 09, 2025 Dr. Jam Lewis MD Nurse Practitioner Active Start: January 09, 2025 Dr. Richy Sales DO Nurse Practitioner Active Start: January 09, 2025 Dr. Nile Levy MD Nurse Practitioner Active Start: January 09, 2025 Dr. Wisam Fermin MD Nurse Practitioner Active Start: January 09, 2025 Team Status: Active Member Role/Relationship Status Dates Dr. Chaitanya Puri MD Primary care physician [place] Start: January 10, 2025 Dr. Alexandro Navarro DO Emergency Department Physician Active Start: January 10, 2025 Dr. Srinivasan Baker MD Admitting physician Active Start: January 10, 2025 Dr. Srinivasan Baker MD Nurse Practitioner Active Start: January 10, 2025 Dr. Darin Younger MD Nurse Practitioner Active Start: January 10, 2025 Dr. Cesar Adair MD Nurse Practitioner Active Sta rt: January 10, 2025 Dr. Kalin Cobso MD Nurse Practitioner Active Start: January 10, 2025 Dr. Gordo Chaves DO Attending physician Active Start: January 10, 2025 Dr. Gordo Chaves , Nurse Practitioner Active S tart: January 10, 2025 Dr. Polo Nguyen MD Nurse Practitioner Active Start: January 10, 2025 Dr. Barrett Brink MD Nurse Practitioner Active Start: January 10, 2025 Dr. Fab Zarate MD Nurse Practitioner Active Start: January 10, 2025 Dr. Ketty Napoles MD Nurse Practitioner Active Start: January 10, 2025 Dr. Parminder Carroll MD Nurse Practitioner Active S tart: January 10, 2025 Dr. Socrates Christensen MD Nurse Practitioner Active St art: January 10, 2025 Dr. Marco Antonio Churchill MD Nurse Practitioner Active S tart: January 10, 2025 Dr. Angela Ann MD Nurse Practitioner Active Start: January 10, 2025 Dr. Sindhu Banks MD Nurse Practitioner Active Start: January 10, 2025 Dr. Nicky Zavala MD Nurse Practitioner Active Start: January 10, 2025 Dr. Lex Barillas MD Nurse Practitioner Active Start: January 10, 2025 Dr. Bj Fisher MD Nurse Practitioner Active Start: January 10, 2025 Dr. Kyle Siddiqi MD Nurse Practitioner Active Start: January 10, 2025 Dr. Eddie Acosta DO Nurse Practitioner Active Start: January 10, 2025 Dr. Felipa Christianson MD Nurse Practitioner Active St art: January 10, 2025 Dr. Jam Lewis MD Nurse Practitioner Active Start: January 10, 2025 Dr. Richy Sales DO Nurse Practitioner Active Start: January 10, 2025 Dr. Nile Levy MD Nurse Practitioner Active Start: January 10, 2025 Dr. Wisam Fermin MD Nurse Practitioner Active Start: January 10, 2025 Dr. Lencho Ty DO Referring Provider Active Start: January 10, 2025 Dr. Lencho Ty DO Nurse Practitioner Active Start: January 10, 2025 Team Status: Active Member Role/Relationship Status Dates Dr. Chaitanya Puri MD Primary care physician [place] Start: January 10, 2025 Dr. Alexandro Navarro DO Emergency Department Physician Active Start: January 10, 2025 Dr. Srinivasan Baker MD Admitting physician Active Start: January 10, 2025 Dr. Srinivasan Baker MD Nurse Practitioner Active Start: January 10, 2025 Dr. Darin Younger MD Nurse Practitioner Active Start: January 10, 2025 Dr. Cesar Adair MD Nurse Practitioner Active Sta rt: January 10, 2025 Dr. Kalin Cobos MD Nurse Practitioner Active Start: January 10, 2025 Dr. Gordo Chaves , Nurse Practitioner Active S tart: January 10, 2025 Dr. Polo Nguyen MD Nurse Practitioner Active Start: January 10, 2025 Dr. Barrett Brink MD Nurse Practitioner Active Start: January 10, 2025 Dr. Fab Zarate MD Nurse Practitioner Active Start: January 10, 2025 Dr. Ketty Napoles MD Nurse Practitioner Active Start: January 10, 2025 Dr. Parminder Carroll MD Nurse Practitioner Active S tart: January 10, 2025 Dr. Socrates Christensen MD Nurse Practitioner Active St art: January 10, 2025 Dr. Marco Antonio Churchill MD Nurse Practitioner Active S tart: January 10, 2025 Dr. Angela Ann MD Nurse Practitioner Active Start: January 10, 2025 Dr. Sindhu Banks MD Nurse Practitioner Active Start: January 10, 2025 Dr. Nicky Zavala MD Nurse Practitioner Active Start: January 10, 2025 Dr. Lex Barillas MD Nurse Practitioner Active Start: January 10, 2025 Dr. Bj Fisher MD Nurse Practitioner Active Start: January 10, 2025 Dr. Kyle Siddiqi MD Nurse Practitioner Active Start: January 10, 2025 Dr. Eddie Acosta , Nurse Practitioner Active Start: January 10, 2025 Dr. Felipa Christianson MD Nurse Practitioner Active St art: January 10, 2025 Dr. Jam Lewis MD Nurse Practitioner Active Start: January 10, 2025 Dr. Richy Sales , Nurse Practitioner Active Start: January 10, 2025 Dr. Nile Levy MD Nurse Practitioner Active Start: January 10, 2025 Dr. Wisam Fermin MD Nurse Practitioner Active Start: January 10, 2025 Dr. Lencho Ty DO Attending physician Active Start: January 10, 2025 Dr. Lencho Ty DO Nurse Practitioner Active Start: January 10, 2025 Team Status: Inactive Member Role/Relationship Status Dates Dr. Chaitanya Puri MD Primary care physician [place] Start: March 24, 2025 End: March 24, 2025 Dr. 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) Procedures OXALIPLATIN LEUCOVORIN CALCIUM INJECTION FLUOROURACIL INJECTION PALONOSETRON HCL INJ MVASI 10 MG INJECTION, MALINDALA Aarti Bar, [address] [place] [address] Jose Roberto Pending Sale To [facility] [address] [place] [address] Referral ID Status Reason Start Date Expiration Date Visits Requested Visits Authorized [id number] Pending Review Patient Cleared - Admin/Chair man/Directo r advise to proceed or did not respond 12/29/2023 09/27/2024 99 99 Reason Comments New Patient Specialty Diagnoses / Procedures Referred By Contac t Referred To Contact Hematology/Oncology Diagnoses 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 (HCC) Procedures AMB REFERRAL TO MALIGNANT HEMATOLOGY (HEMATOLOGY / ONCOLOGY) Dayami Roe MD [address] [place] [address] Aarti Bar, [address] [place] [address] Referral ID Status Reason Start Date Expiration Date V isits Requested Visits Authorized [id number] Outside PCP 11/13/2023 11/12/2024 1 1 Reason Comments 6 [facility] LABS Reason Comments Follow-up Yearly previous Baco n/ Reason Comments Medicare Annual Wellness Visit Elio jones 6 [facility] Specialty Diagnoses / Procedures Referred By Oren t Referred To Contact Primary Care Diagnoses Mixed hyperlipidemia Hypertension, essential, benign Type 2 diabetes mellitus without complication, without long-term current use of insulin (CMS/HCC) Gastroesophageal reflux disease without esophagitis 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 Obstructive sleep apnea syndrome Procedures Follow Up In Primary Care - Established Dayami Roe MD [address] [place] [address] Referral ID Status Reason Start Date Expiration Date Visits Re quested Visits Authorized [id number] Closed 12/31/2022 06/29/2023 1 1 Reason Comments ER F/U ALLERGIC REACTION TO MEDICATION Specialty Diagnoses / Procedures Referred By Contfatou t Referred To Contact Diagnoses SOB (shortness of breath) Acute respiratory failure with hypoxia (HCC) Anemia, unspecified type Acute anemia Referral ID Status Reason Start Date Expiration Date Visits Re quested Visits Authorized [id number] 1 1 Reason Comments Shortness of Breath Specialty Diagnoses / Procedures Referred By Contfatou t Referred To Contact Diagnoses SOB (shortness [...] Treatment Specialty Diagnoses / Procedures Referred By Oren t Referred To Contact Diagnoses Iron malabsorption Iron deficiency anemia due to chronic blood loss Cancer of cecum (HCC) 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) Procedures IRON SUCROSE INJECTION PER 1 MG Aarti Bar DO [address] [place] [address] Jose Roberto Pending Sale To [facility] [address] [place] [address] Referral ID Status Reason Start Date Expiration Date V isits Requested Visits Authorized [id number] Authorized 12/17/2023 06/28/2024 99 99 Reason Comments Social Work Services Reason Comments Chemotherapy Treatment Specialty Diagnoses / Procedures Referred By [facility] Referred To Contact Diagnoses Cancer of cecum (HCC) 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) Procedures OXALIPLATIN LEUCOVORIN CALCIUM INJECTION FLUOROURACIL INJECTION PALONOSETRON HCL INJ MVASI 10 MG Aarti Bar, DO [address] [place] [address] Jose Roberto Pending Sale To [facility] [address] [place] [address] Referral ID Status Reason Start Date Expiration Date Visits Requested Visits Authorized [id number] Waiting for Response Patient Cleared - Admin/Chair man/Directo r advise to proceed or did not respond 12/29/2023 03/14/2024 6 6 Reason Comments [employer] - Other C1D1 Post Treat ment Call (Folfox+Avastin) Reason Comments Blood Draw (CVAD) Reason Comments AVS 01/19/24 Referral ID Status Reason Start Date Expiration Date Visits Requested Visits Authorized [id number] Authorized Patient Cleared - Admin/Chairm an/Director advise to proceed or did not respond 12/29/2023 06/28/2024 99 99 Reason Comments Patient Update Reason Comments [employer] - Other Symptoms Reason Comments Established Patient Reason Comments Establish Care Reason Comments 18581- pall med Initial Consult Reason Comments Results Reason Comments CVAD Access Specialty Diagnoses / Procedures Referred By [facility] Referred To Contact CT IMAGING Diagnoses Cancer of cecum (HCC) 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) Malignant neoplasm of colon, unspecified part of colon (HCC) Procedures CT CHEST W IVCON DIAGNOSTIC COMPUTED TOMOGRAPHY THORAX W/CONTRAST Rhonda Owens [address] [place] [address] [place] [address] Referral ID Status Reason Start Date Expiration Date V isits Requested Visits Authorized [id number] Closed Auto-Generate d Referral 03/01/2024 06/28/2024 [address] Specialty Diagnoses / Procedures Referred By [facility] Referred To Contact CT IMAGING Diagnoses Cancer of cecum (HCC) 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) Malignant neoplasm of colon, unspecified part of colon (HCC) Procedures CT CHEST W IVCON DIAGNOSTIC COMPUTED TOMOGRAPHY THORAX W/CONTRAST Rhonda Owens [address] [place] [address] [facility] [place] [id number] Reason Comments Imm/Inj Reason Comments Follow-up 6 month follow up [facility] labs Specialty Diagnoses / Procedures Referred By [...] Primary Care - Established Dayami Roe MD [address] [place] [address] Referral ID Status Reason Start Date Expiration Date V isits Requested Visits Authorized [id number] Authorized 07/03/2023 07/02/2024 1 1 Specialty Diagnoses / Procedures Referred By Contac t Referred To Contact Diagnoses Cancer of cecum (HCC) 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) Procedures OXALIPLATIN LEUCOVORIN CALCIUM INJECTION FLUOROURACIL INJECTION PALONOSETRON HCL INJ MVASI 10 MG Aarti Bar, [address] [place] [id number] Jose Roberto Pending Sale To [facility] [address] [place] [address] Reason Comments Goals of Care Specialty Diagnoses / Procedures Referred By Contac t Referred To Contact Diagnoses 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) Procedures CONSULT TO PALLIATIVE CARE OFFICE/OUTPATIENT [facility] 60 MINUTES Dayami Puri MD [address] [place] [address] Referral ID Status Reason Start Date Expiration Date V isits Requested Visits Authorized [id number] Closed PCP Requested Referral 03/08/2024 03/08/2025 1 1 Reason Comments Acute Visit cough, congestion an d fatique Reason Comments Results Covid/Flu, RSV Referral ID Status Reason Start Date Expiration Date Visits Requested Visits Authorized [id number] Authorized Patient Cleared - Admin/Chairm an/Director advise [...] HCL INJ MVASI 10 MG INJECTION, Aarti Escamilla, [address] [place] [address] Phone: tel: fax: Hematology/Oncology [address] [place] [address] Phone: tel: fax: Referral ID Status Reason Start Date Expiration Date Visits Requested Visits Authorized [id number] Authorized Patient Cleared - Admin/Chairm an/Director advise to proceed or did not respond 12/29/2023 09/27/2024 99 99 Referral ID Status Reason Start Date Expiration Date Visits Requested Visits Authorized [id number] Authorized Patient Cleared - Admin/Chairm an/Director advise to proceed or did not respond 12/29/2023 11/01/2024 99 99 Reason Onset Date Comments Refill Request 09/12/2024 Reason Comments Benefits Investigation Reason Onset Date Comments Refill Request 09/19/2024 Referral ID Status Reason Start Date Expiration Date Visits Requested Visits Authorized [id number] Authorized Patient Cleared - Admin/Chairm an/Director advise to proceed or did not respond 12/29/2023 03/26/2025 27 27 Referral ID Status Reason Start Date Expiration Date Visits Requested Visits Authorized [id number] Authorized Patient Cleared - Admin/Chairm an/Director advise to proceed or did not respond 12/29/2023 03/26/2025 38 38 Specialty Diagnoses / Procedures Referred By Contac t Referred To Contact CT IMAGING Diagnoses Cancer of cecum (HCC) 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) Procedures CT ABD/PEL W IVCON CT ABD & PELVIS W/CONTRAST Aarti Bar, DO [address] [place] [address] Phone: tel: fax: [place] [phone] Referral ID Status Reason Start Date Expiration Date V isits Requested Visits Authorized [id number] Closed Auto-Generate d Referral 10/12/2024 11/11/2025 1 1 Reason Onset Date Comments Refill Request 11/07/2024 Reason Comments [employer] - Other Change in treat ment Reason Comments Refill Request Specialty Diagnoses / Procedures Referred By Contfatou t Referred To Contact Diagnoses Cancer of cecum (HCC) 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) Procedures LEUCOVORIN CALCIUM INJECTION PALONOSETRON HCL IRINOTECAN, 20 MG FLUOROURACIL INJECTION INJ., ZIRABEV, 10 MG Aarti Bar, DO [address] [place] [address] Phone: tel: fax: Aarti Bar, DO [address] [place] [address] Phone: tel: fax: Referral ID Status Reason Start Date Expiration Date V isits Requested Visits Authorized [id number] Pending Review 11/23/2024 03/26/2025 1 99 Reason Comments Appointment Transfusion Referral ID Status Reason Start Date Expiration Date Visits Requested Visits Authorized [id number] Pending Review Patient Cleared - Admin/Chair man/Directo r advise to proceed or did not respond 11/23/2024 03/26/2025 1 102 Reason Comments [employer] - Other C1D1 Post Treat ment Call (Folfir) Referral ID Status Reason Start Date Expiration Date Visits Requested Visits Authorized [id number] Pending Review Patient Cleared - Admin/Chair man/Directo r advise to proceed or did not respond 11/23/2024 03/26/2025 1 101 Reason Comments Appointment Reason Comments Insurance Authorization Reason Comments Care Coordination Diarrhea/Nausea Reason Comments Care Coordination Follow up Note Reason Comments Care Coordination Follow up Note Reason Comments [employer] - Other ED Follow-up Reason Comments Orders Reason Comments 6 Month Exam ER F/U [facility] 12/20/24 na usea/vomiting, coughing, SOB Reason Onset Date Comments Results 01/09/2025 Reason Comments Initial Consult Reason Comments Follow Up pneumonia Reason Comments AVS 01/17 Reason Comments [place] Specialty Diagnoses / Procedures Referred By Oren t Referred To Contact CT IMAGING Diagnoses Metastatic colon cancer to liver (HCC) Cancer of cecum (HCC) Procedures CT ABD/PEL W IVCON CT ABD & PELVIS W/CONTRAST Aarti Bar DO [address] [place] [address] Phone: tel: fax: [place] [phone] Referral ID Status Reason Start Date Expiration Date V isits Requested Visits Authorized [id number] Closed Auto-Generate d Referral 01/17/2025 02/16/2026 1 1 Reason Comments Care Coordination Change in Treatment Reason Onset Date Comments SPP Oral Oncology/hematology - Treatment Referra l 02[facility] 02/14/2025 STEPHEN rai Scheduled Active and Recently Administ ered Medications (unrecognized section and content) Medication Order 10/27/2023 10/28/2023 10/29/2023 atorvastatin (LIPITOR) tablet 20 mg 20 mg, Oral, Nightly, First dose on Thu10/21/23 at 2100 2106 (Given - Provider: Shell Ruavlcaba RN) 2206 (Given - Provider: Vladimir Dias RN) enoxaparin (LOVENOX) syringe 40 mg 40 mg, Subcutaneous, Daily, First dose on Thu10/23/23 at 0900, Administer in abdomen unless otherwise directed by prescriber. Notify physician if patient refuses., Indication: VTE Prophylaxis 901 (Given - Provider: Liliana Weiss RN) 836 (Given - Provider: Liliana Weiss RN) 0900 (Given - Provider: Jannet Perez, ALESSANDRA) guaiFENesin (MUCINEX) 12 hr tablet 600 mg 600 mg, Oral, Every 12 hours scheduled, First dose on Thu10/23/23 at 2100, DO NOT CRUSH OR CHEW. 901 (Given - Provider: Liliana Weiss RN)2106 (Given - Provider: Shell Ruvalcaba RN) 836 (Given - Provider: Liliana Weiss RN)2207 (Given - Provider: Vladimir Dias, RN) 0914 (Given - Provider: Jannet Perez, RN) hydroCHLOROthiazide tablet 12.5 mg 12.5 mg, Oral, Daily, First dose on Thu10/27/23 at 1500 1532 (Given - Provider: Liliana Weiss RN) 0837 (Given - Provider: Liliana Weiss RN) 0914 (Given - Provider: Jannet Perez, RN) insulin glargine (LANTUS) injection 5 Units [...] met) 2100 (Not Given - Provider: Vladimir Dias, ALESSANDRA - Reason: Order parameters not met) insulin [...] Patient/family refused) 0900 (Hold - Provider: Jannet Perze RN - Reason: Other) sodium chloride (PF) (NS) flush 5 mL(Linked Group 2) 5 mL, Intravenous, Every 8 hours scheduled, First dose on Thu10/19/23 at 1400, Saline lock 0554 (Given - Provider: Amber Fernandez RN)1532 (Given - Provider: Liliana Weiss RN)1623 (Given - Provider: Liliana Weiss RN)2108 (Given - Provider: Shell Ruvalcaba RN) 0549 (Given - Provider: Shell Ruvalcaba RN)1400 (Canceled Entry - Provider: Liliana Weiss RN)2207 (Given - Provider: Vladimir Dias, ALESSANDRA) 0521 (Given - Provider: Vladimir Dias, RN)1400 (Not Given - Provider: Jannet Perez RN - Reason: Loss of IV access) zolpidem (AMBIEN) tablet 10 mg 10 mg, Oral, Nightly, First dose on Thu10/21/23 at 2100 2107 (Given - Provider: Shell Ruvalcaba RN) 2207 (Given - Provider: Vladimir Dais, ALESSANDRA) PRN Medication Order 10/27/2023 10/28/2023 10/29/2023 [...] or prosecute any alcohol or drug abuse patient.[facility] HospitalIn the event this information is protected by the Federal Confidentiality of Alcohol and Drug Abuse Patient Records regulations: The Federal rules restrict any use of the information to criminally investigate or prosecute any alcohol or drug abuse patient.[facility] HospitalIn the event this information is protected by the Federal Confidentiality of Alcohol and Drug Abuse Patient Records regulations: The Federal rules restrict any use of the information to criminally investigate or prosecute any alcohol or drug abuse patient.[facility] HospitalIn the event this information is protected by the Federal Confidentiality of Alcohol and Drug Abuse Patient Records regulations: The Federal rules restrict any use of the information to criminally investigate or prosecute any alcohol or drug abuse patient.[facility] HospitalIn the event this information is protected by the Federal Confidentiality of Alcohol and Drug Abuse Patient Records regulations: The Federal rules restrict any use of the information to criminally investigate or prosecute any alcohol or drug abuse patient.[facility] HospitalIn the event this information is protected by the Federal Confidentiality of Alcohol and Drug Abuse Patient Records regulations: The Federal rules restrict any use of the information to criminally investigate or prosecute any alcohol or drug abuse patient.[facility] HospitalIn the event this information is protected by the Federal Confidentiality of Alcohol and Drug Abuse Patient Records regulations: The Federal rules restrict any use of the information to criminally investigate or prosecute any alcohol or drug abuse patient.[facility] HospitalIn the event this information is protected by the Federal Confidentiality of Alcohol and Drug Abuse Patient Records regulations: The Federal rules restrict any use of the information to criminally investigate or prosecute any alcohol or drug abuse patient.[facility] HospitalIn the event this information is protected by the Federal Confidentiality of Alcohol and Drug Abuse Patient Records regulations: The Federal rules restrict any use of the information to criminally investigate or prosecute any alcohol or drug abuse patient.[facility] HospitalIn the event this information is protected by the Federal Confidentiality of Alcohol and Drug Abuse Patient Records regulations: The Federal rules restrict any use of the information to criminally investigate or prosecute any alcohol or drug abuse patient.[facility] HospitalIn the event this information is protected by the Federal Confidentiality of Alcohol and Drug Abuse Patient Records regulations: The Federal rules restrict any use of the information to criminally investigate or prosecute any alcohol or drug abuse patient.[facility] HospitalIn the event this information is protected by the Federal Confidentiality of Alcohol and Drug Abuse Patient Records regulations: The Federal rules restrict any use of the information to criminally investigate or prosecute any alcohol or drug abuse patient.[facility] HospitalIn the event this information is protected by the Federal Confidentiality of Alcohol and Drug Abuse Patient Records regulations: The Federal rules restrict any use of the information to criminally investigate or prosecute any alcohol or drug abuse patient.[facility] HospitalIn the event this information is protected by the Federal Confidentiality of Alcohol and Drug Abuse Patient Records regulations: The Federal rules restrict any use of the information to criminally investigate or prosecute any alcohol or drug abuse patient.[facility] HospitalIn the event this information is protected by the Federal Confidentiality of Alcohol and Drug Abuse Patient Records regulations: The Federal rules restrict any use of the information to criminally investigate or prosecute any alcohol or drug abuse patient.[facility] HospitalIn the event this information is protected by the Federal Confidentiality of Alcohol and Drug Abuse Patient Records regulations: The Federal rules restrict any use of the information to criminally investigate or prosecute any alcohol or drug abuse patient.[facility] HospitalIn the event this information is protected by the Federal Confidentiality of Alcohol and Drug Abuse Patient Records regulations: The Federal rules restrict any use of the information to criminally investigate or prosecute any alcohol or drug abuse patient.[facility] HospitalIn the event this information is protected by the Federal Confidentiality of Alcohol and Drug Abuse Patient Records regulations: The Federal rules restrict any use of the information to criminally investigate or prosecute any alcohol or drug abuse patient.[facility] HospitalIn the event this information is protected by the Federal Confidentiality of Alcohol and Drug Abuse Patient Records regulations: The Federal rules restrict any use of the information to criminally investigate or prosecute any alcohol or drug abuse patient.[facility] HospitalIn the event this information is protected by the Federal Confidentiality of Alcohol and Drug Abuse Patient Records regulations: The Federal rules restrict any use of the information to criminally investigate or prosecute any alcohol or drug abuse patient.[facility] HospitalIn the event this information is protected by the Federal Confidentiality of Alcohol and Drug Abuse Patient Records regulations: The Federal rules restrict any use of the information to criminally investigate or prosecute any alcohol or drug abuse patient.[facility] HospitalIn the event this information is protected by the Federal Confidentiality of Alcohol and Drug Abuse Patient Records regulations: The Federal rules restrict any use of the information to criminally investigate or prosecute any alcohol or drug abuse patient.[facility] HospitalIn the event this information is protected by the Federal Confidentiality of Alcohol and Drug Abuse Patient Records regulations: The Federal rules restrict any use of the information to criminally investigate or prosecute any alcohol or drug abuse patient.[facility] HospitalIn the event this information is protected by the Federal Confidentiality of Alcohol and Drug Abuse Patient Records regulations: The Federal rules restrict any use of the information to criminally investigate or prosecute any alcohol or drug abuse patient.[facility] HospitalIn the event this information is protected by the Federal Confidentiality of Alcohol and Drug Abuse Patient Records regulations: The Federal rules restrict any use of the information to criminally investigate or prosecute any alcohol or drug abuse patient.[facility] HospitalIn the event this information is protected by the Federal Confidentiality of Alcohol and Drug Abuse Patient Records regulations: The Federal rules restrict any use of the information to criminally investigate or prosecute any alcohol or drug abuse patient.[facility] HospitalIn the event this information is protected by the Federal Confidentiality of Alcohol and Drug Abuse Patient Records regulations: The Federal rules restrict any use of the information to criminally investigate or prosecute any alcohol or drug abuse patient.[facility] HospitalIn the event this information is protected by the Federal Confidentiality of Alcohol and Drug Abuse Patient Records regulations: The Federal rules restrict any use of the information to criminally investigate or prosecute any alcohol or drug abuse patient.[facility] HospitalIn the event this information is protected by the Federal Confidentiality of Alcohol and Drug Abuse Patient Records regulations: The Federal rules restrict any use of the information to criminally investigate or prosecute any alcohol or drug abuse patient.[facility] HospitalIn the event this information is protected by the Federal Confidentiality of Alcohol and Drug Abuse Patient Records regulations: The Federal rules restrict any use of the information to criminally investigate or prosecute any alcohol or drug abuse patient.[facility] HospitalIn the event this information is protected by the Federal Confidentiality of Alcohol and Drug Abuse Patient Records regulations: The Federal rules restrict any use of the information to criminally investigate or prosecute any alcohol or drug abuse patient.[facility] HospitalIn the event this information is protected by the Federal Confidentiality of Alcohol and Drug Abuse Patient Records regulations: The Federal rules restrict any use of the information to criminally investigate or prosecute any alcohol or drug abuse patient.[facility] HospitalIn the event this information is protected by the Federal Confidentiality of Alcohol and Drug Abuse Patient Records regulations: The Federal rules restrict any use of the information to criminally investigate or prosecute any alcohol or drug abuse patient.[facility] HospitalIn the event this information is protected by the Federal Confidentiality of Alcohol and Drug Abuse Patient Records regulations: The Federal rules restrict any use of the information to criminally investigate or prosecute any alcohol or drug abuse patient.[facility] HospitalIn the event this information is protected by the Federal Confidentiality of Alcohol and Drug Abuse Patient Records regulations: The Federal rules restrict any use of the information to criminally investigate or prosecute any alcohol or drug abuse patient.[facility] HospitalIn the event this information is protected by the Federal Confidentiality of Alcohol and Drug Abuse Patient Records regulations: The Federal rules restrict any use of the information to criminally investigate or prosecute any alcohol or drug abuse patient.[facility] HospitalIn the event this information is protected by the Federal Confidentiality of Alcohol and Drug Abuse Patient Records regulations: The Federal rules restrict any use of the information to criminally investigate or prosecute any alcohol or drug abuse patient.[facility] HospitalIn the event this information is protected by the Federal Confidentiality of Alcohol and Drug Abuse Patient Records regulations: The Federal rules restrict any use of the information to criminally investigate or prosecute any alcohol or drug abuse patient.[facility] HospitalIn the event this information is protected by the Federal Confidentiality of Alcohol and Drug Abuse Patient Records regulations: The Federal rules restrict any use of the information to criminally investigate or prosecute any alcohol or drug abuse patient.[facility] HospitalIn the event this information is protected by the Federal Confidentiality of Alcohol and Drug Abuse Patient Records regulations: The Federal rules restrict any use of the information to criminally investigate or prosecute any alcohol or drug abuse patient.[facility] HospitalIn the event this information is protected by the Federal Confidentiality of Alcohol and Drug Abuse Patient Records regulations: The Federal rules restrict any use of the information to criminally investigate or prosecute any alcohol or drug abuse patient.[facility] HospitalIn the event this information is protected by the Federal Confidentiality of Alcohol and Drug Abuse Patient Records regulations: The Federal rules restrict any use of the information to criminally investigate or prosecute any alcohol or drug abuse patient.[facility] HospitalIn the event this information is protected by the Federal Confidentiality of Alcohol and Drug Abuse Patient Records regulations: The Federal rules restrict any use of the information to criminally investigate or prosecute any alcohol or drug abuse patient.[facility] HospitalIn the event this information is protected by the Federal Confidentiality of Alcohol and Drug Abuse Patient Records regulations: The Federal rules restrict any use of the information to criminally investigate or prosecute any alcohol or drug abuse patient.[facility] HospitalIn the event this information is protected by the Federal Confidentiality of Alcohol and Drug Abuse Patient Records regulations: The Federal rules restrict any use of the information to criminally investigate or prosecute any alcohol or drug abuse patient.[facility] HospitalIn the event this information is protected by the Federal Confidentiality of Alcohol and Drug Abuse Patient Records regulations: The Federal rules restrict any use of the information to criminally investigate or prosecute any alcohol or drug abuse patient.[facility] HospitalIn the event this information is protected by the Federal Confidentiality of Alcohol and Drug Abuse Patient Records regulations: The Federal rules restrict any use of the information to criminally investigate or prosecute any alcohol or drug abuse patient.[facility] HospitalIn the event this information is protected by the Federal Confidentiality of Alcohol and Drug Abuse Patient Records regulations: The Federal rules restrict any use of the information to criminally investigate or prosecute any alcohol or drug abuse patient.[facility] HospitalIn the event this information is protected by the Federal Confidentiality of Alcohol and Drug Abuse Patient Records regulations: The Federal rules restrict any use of the information to criminally investigate or prosecute any alcohol or drug abuse patient.[facility] HospitalIn the event this information is protected by the Federal Confidentiality of Alcohol and Drug Abuse Patient Records regulations: The Federal rules restrict any use of the information to criminally investigate or prosecute any alcohol or drug abuse patient.[facility] HospitalIn the event this information is protected by the Federal Confidentiality of Alcohol and Drug Abuse Patient Records regulations: The Federal rules restrict any use of the information to criminally investigate or prosecute any alcohol or drug abuse patient.[facility] HospitalIn the event this information is protected by the Federal Confidentiality of Alcohol and Drug Abuse Patient Records regulations: The Federal rules restrict any use of the information to criminally investigate or prosecute any alcohol or drug abuse patient.[facility] HospitalIn the event this information is protected by the Federal Confidentiality of Alcohol and Drug Abuse Patient Records regulations: The Federal rules restrict any use of the information to criminally investigate or prosecute any alcohol or drug abuse patient.[facility] HospitalIn the event this information is protected by the Federal Confidentiality of Alcohol and Drug Abuse Patient Records regulations: The Federal rules restrict any use of the information to criminally investigate or prosecute any alcohol or drug abuse patient.[facility] HospitalIn the event this information is protected by the Federal Confidentiality of Alcohol and Drug Abuse Patient Records regulations: The Federal rules restrict any use of the information to criminally investigate or prosecute any alcohol or drug abuse patient.[facility] HospitalIn the event this information is protected by the Federal Confidentiality of Alcohol and Drug Abuse Patient Records regulations: The Federal rules restrict any use of the information to criminally investigate or prosecute any alcohol or drug abuse patient.[facility] HospitalIn the event this information is protected by the Federal Confidentiality of Alcohol and Drug Abuse Patient Records regulations: The Federal rules restrict any use of the information to criminally investigate or prosecute any alcohol or drug abuse patient.[facility] HospitalIn the event this information is protected by the Federal Confidentiality of Alcohol and Drug Abuse Patient Records regulations: The Federal rules restrict any use of the information to criminally investigate or prosecute any alcohol or drug abuse patient.[facility] HospitalIn the event this information is protected by the Federal Confidentiality of Alcohol and Drug Abuse Patient Records regulations: The Federal rules restrict any use of the information to criminally investigate or prosecute any alcohol or drug abuse patient.[facility] HospitalIn the event this information is protected by the Federal Confidentiality of Alcohol and Drug Abuse Patient Records regulations: The Federal rules restrict any use of the information to criminally investigate or prosecute any alcohol or drug abuse patient.[facility] HospitalIn the event this information is protected by the Federal Confidentiality of Alcohol and Drug Abuse Patient Records regulations: The Federal rules restrict any use of the information to criminally investigate or prosecute any alcohol or drug abuse patient.[facility] HospitalIn the event this information is protected by the Federal Confidentiality of Alcohol and Drug Abuse Patient Records regulations: The Federal rules restrict any use of the information to criminally investigate or prosecute any alcohol or drug abuse patient.[facility] HospitalIn the event this information is protected by the Federal Confidentiality of Alcohol and Drug Abuse Patient Records regulations: The Federal rules restrict any use of the information to criminally investigate or prosecute any alcohol or drug abuse patient.[facility] HospitalIn the event this information is protected by the Federal Confidentiality of Alcohol and Drug Abuse Patient Records regulations: The Federal rules restrict any use of the information to criminally investigate or prosecute any alcohol or drug abuse patient.[facility] HospitalIn the event this information is protected by the Federal Confidentiality of Alcohol and Drug Abuse Patient Records regulations: The Federal rules restrict any use of the information to criminally investigate or prosecute any alcohol or drug abuse patient.[facility] HospitalIn the event this information is protected by the Federal Confidentiality of Alcohol and Drug Abuse Patient Records regulations: The Federal rules restrict any use of the information to criminally investigate or prosecute any alcohol or drug abuse patient.[facility] HospitalIn the event this information is protected by the Federal Confidentiality of Alcohol and Drug Abuse Patient Records regulations: The Federal rules restrict any use of the information to criminally investigate or prosecute any alcohol or drug abuse patient.[facility] HospitalIn the event this information is protected by the Federal Confidentiality of Alcohol and Drug Abuse Patient Records regulations: The Federal rules restrict any use of the information to criminally investigate or prosecute any alcohol or drug abuse patient.[facility] HospitalIn the event this information is protected by the Federal Confidentiality of Alcohol and Drug Abuse Patient Records regulations: The Federal rules restrict any use of the information to criminally investigate or prosecute any alcohol or drug abuse patient.[facility] HospitalIn the event this information is protected by the Federal Confidentiality of Alcohol and Drug Abuse Patient Records regulations: The Federal rules restrict any use of the information to criminally investigate or prosecute any alcohol or drug abuse patient.[facility] HospitalIn the event this information is protected by the Federal Confidentiality of Alcohol and Drug Abuse Patient Records regulations: The Federal rules restrict any use of the information to criminally investigate or prosecute any alcohol or drug abuse patient.[facility] HospitalIn the event this information is protected by the Federal Confidentiality of Alcohol and Drug Abuse Patient Records regulations: The Federal rules restrict any use of the information to criminally investigate or prosecute any alcohol or drug abuse patient.[facility] HospitalIn the event this information is protected by the Federal Confidentiality of Alcohol and Drug Abuse Patient Records regulations: The Federal rules restrict any use of the information to criminally investigate or prosecute any alcohol or drug abuse patient.[facility] HospitalIn the event this information is protected by the Federal Confidentiality of Alcohol and Drug Abuse Patient Records regulations: The Federal rules restrict any use of the information to criminally investigate or prosecute any alcohol or drug abuse patient.[facility] HospitalIn the event this information is protected by the Federal Confidentiality of Alcohol and Drug Abuse Patient Records regulations: The Federal rules restrict any use of the information to criminally investigate or prosecute any alcohol or drug abuse patient.[facility] HospitalIn the event this information is protected by the Federal Confidentiality of Alcohol and Drug Abuse Patient Records regulations: The Federal rules restrict any use of the information to criminally investigate or prosecute any alcohol or drug abuse patient.[facility] HospitalIn the event this information is protected by the Federal Confidentiality of Alcohol and Drug Abuse Patient Records regulations: The Federal rules restrict any use of the information to criminally investigate or prosecute any alcohol or drug abuse patient.[facility] HospitalIn the event this information is protected by the Federal Confidentiality of Alcohol and Drug Abuse Patient Records regulations: The Federal rules restrict any use of the information to criminally investigate or prosecute any alcohol or drug abuse patient.[facility] HospitalIn the event this information is protected by the Federal Confidentiality of Alcohol and Drug Abuse Patient Records regulations: The Federal rules restrict any use of the information to criminally investigate or prosecute any alcohol or drug abuse patient.[facility] HospitalIn the event this information is protected by the Federal Confidentiality of Alcohol and Drug Abuse Patient Records regulations: The Federal rules restrict any use of the information to criminally investigate or prosecute any alcohol or drug abuse patient.[facility] HospitalIn the event this information is protected by the Federal Confidentiality of Alcohol and Drug Abuse Patient Records regulations: The Federal rules restrict any use of the information to criminally investigate or prosecute any alcohol or drug abuse patient.[facility] HospitalIn the event this information is protected by the Federal Confidentiality of Alcohol and Drug Abuse Patient Records regulations: The Federal rules restrict any use of the information to criminally investigate or prosecute any alcohol or drug abuse patient.[facility] HospitalIn the event this information is protected by the Federal Confidentiality of Alcohol and Drug Abuse Patient Records regulations: The Federal rules restrict any use of the information to criminally investigate or prosecute any alcohol or drug abuse patient.[facility] HospitalIn the event this information is protected by the Federal Confidentiality of Alcohol and Drug Abuse Patient Records regulations: The Federal rules restrict any use of the information to criminally investigate or prosecute any alcohol or drug abuse patient.[facility] HospitalIn the event this information is protected by the Federal Confidentiality of Alcohol and Drug Abuse Patient Records regulations: The Federal rules restrict any use of the information to criminally investigate or prosecute any alcohol or drug abuse patient.[facility] HospitalIn the event this information is protected by the Federal Confidentiality of Alcohol and Drug Abuse Patient Records regulations: The Federal rules restrict any use of the information to criminally investigate or prosecute any alcohol or drug abuse patient.[facility] HospitalIn the event this information is protected by the Federal Confidentiality of Alcohol and Drug Abuse Patient Records regulations: The Federal rules restrict any use of the information to criminally investigate or prosecute any alcohol or drug abuse patient.[facility] HospitalIn the event this information is protected by the Federal Confidentiality of Alcohol and Drug Abuse Patient Records regulations: The Federal rules restrict any use of the information to criminally investigate or prosecute any alcohol or drug abuse patient.[facility] HospitalIn the event this information is protected by the Federal Confidentiality of Alcohol and Drug Abuse Patient Records regulations: The Federal rules restrict any use of the information to criminally investigate or prosecute any alcohol or drug abuse patient.[facility] HospitalIn the event this information is protected by the Federal Confidentiality of Alcohol and Drug Abuse Patient Records regulations: The Federal rules restrict any use of the information to criminally investigate or prosecute any alcohol or drug abuse patient.[facility] HospitalIn the event this information is protected by the Federal Confidentiality of Alcohol and Drug Abuse Patient Records regulations: The Federal rules restrict any use of the information to criminally investigate or prosecute any alcohol or drug abuse patient.[facility] HospitalIn the event this information is protected by the Federal Confidentiality of Alcohol and Drug Abuse Patient Records regulations: The Federal rules restrict any use of the information to criminally investigate or prosecute any alcohol or drug abuse patient.[facility] HospitalIn the event this information is protected by the Federal Confidentiality of Alcohol and Drug Abuse Patient Records regulations: The Federal rules restrict any use of the information to criminally investigate or prosecute any alcohol or drug abuse patient.[facility] HospitalIn the event this information is protected by the Federal Confidentiality of Alcohol and Drug Abuse Patient Records regulations: The Federal rules restrict any use of the information to criminally investigate or prosecute any alcohol or drug abuse patient.[facility] HospitalIn the event this information is protected by the Federal Confidentiality of Alcohol and Drug Abuse Patient Records regulations: The Federal rules restrict any use of the information to criminally investigate or prosecute any alcohol or drug abuse patient.[facility] HospitalIn the event this information is protected by the Federal Confidentiality of Alcohol and Drug Abuse Patient Records regulations: The Federal rules restrict any use of the information to criminally investigate or prosecute any alcohol or drug abuse patient.[facility] HospitalIn the event this information is protected by the Federal Confidentiality of Alcohol and Drug Abuse Patient Records regulations: The Federal rules restrict any use of the information to criminally investigate or prosecute any alcohol or drug abuse patient.[facility] HospitalIn the event this information is protected by the Federal Confidentiality of Alcohol and Drug Abuse Patient Records regulations: The Federal rules restrict any use of the information to criminally investigate or prosecute any alcohol or drug abuse patient.[facility] HospitalIn the event this information is protected by the Federal Confidentiality of Alcohol and Drug Abuse Patient Records regulations: The Federal rules restrict any use of the information to criminally investigate or prosecute any alcohol or drug abuse patient.[facility] HospitalIn the event this information is protected by the Federal Confidentiality of Alcohol and Drug Abuse Patient Records regulations: The Federal rules restrict any use of the information to criminally investigate or prosecute any alcohol or drug abuse patient.[facility] HospitalIn the event this information is protected by the Federal Confidentiality of Alcohol and Drug Abuse Patient Records regulations: The Federal rules restrict any use of the information to criminally investigate or prosecute any alcohol or drug abuse patient.[facility] HospitalIn the event this information is protected by the Federal Confidentiality of Alcohol and Drug Abuse Patient Records regulations: The Federal rules restrict any use of the information to criminally investigate or prosecute any alcohol or drug abuse patient.[facility] HospitalIn the event this information is protected by the Federal Confidentiality of Alcohol and Drug Abuse Patient Records regulations: The Federal rules restrict any use of the information to criminally investigate or prosecute any alcohol or drug abuse patient.[facility] HospitalIn the event this information is protected by the Federal Confidentiality of Alcohol and Drug Abuse Patient Records regulations: The Federal rules restrict any use of the information to criminally investigate or prosecute any alcohol or drug abuse patient.[facility] HospitalIn the event this information is protected by the Federal Confidentiality of Alcohol and Drug Abuse Patient Records regulations: The Federal rules restrict any use of the information to criminally investigate or prosecute any alcohol or drug abuse patient.[facility] HospitalIn the event this information is protected by the Federal Confidentiality of Alcohol and Drug Abuse Patient Records regulations: The Federal rules restrict any use of the information to criminally investigate or prosecute any alcohol or drug abuse patient.[facility] HospitalIn the event this information is protected by the Federal Confidentiality of Alcohol and Drug Abuse Patient Records regulations: The Federal rules restrict any use of the information to criminally investigate or prosecute any alcohol or drug abuse patient.[facility] HospitalIn the event this information is protected by the Federal Confidentiality of Alcohol and Drug Abuse Patient Records regulations: The Federal rules restrict any use of the information to criminally investigate or prosecute any alcohol or drug abuse patient.[facility] HospitalIn the event this information is protected by the Federal Confidentiality of Alcohol and Drug Abuse Patient Records regulations: The Federal rules restrict any use of the information to criminally investigate or prosecute any alcohol or drug abuse patient.[facility] HospitalIn the event this information is protected by the Federal Confidentiality of Alcohol and Drug Abuse Patient Records regulations: The Federal rules restrict any use of the information to criminally investigate or prosecute any alcohol or drug abuse patient.[facility] HospitalIn the event this information is protected by the Federal Confidentiality of Alcohol and Drug Abuse Patient Records regulations: The Federal rules restrict any use of the information to criminally investigate or prosecute any alcohol or drug abuse patient.[facility] HospitalIn the event this information is protected by the Federal Confidentiality of Alcohol and Drug Abuse Patient Records regulations: The Federal rules restrict any use of the information to criminally investigate or prosecute any alcohol or drug abuse patient.[facility] HospitalIn the event this information is protected by the Federal Confidentiality of Alcohol and Drug Abuse Patient Records regulations: The Federal rules restrict any use of the information to criminally investigate or prosecute any alcohol or drug abuse patient.[facility] HospitalIn the event this information is protected by the Federal Confidentiality of Alcohol and Drug Abuse Patient Records regulations: The Federal rules restrict any use of the information to criminally investigate or prosecute any alcohol or drug abuse patient.[facility] HospitalIn the event this information is protected by the Federal Confidentiality of Alcohol and Drug Abuse Patient Records regulations: The Federal rules restrict any use of the information to criminally investigate or prosecute any alcohol or drug abuse patient.[facility] HospitalIn the event this information is protected by the Federal Confidentiality of Alcohol and Drug Abuse Patient Records regulations: The Federal rules restrict any use of the information to criminally investigate or prosecute any alcohol or drug abuse patient.[facility] HospitalIn the event this information is protected by the Federal Confidentiality of Alcohol and Drug Abuse Patient Records regulations: The Federal rules restrict any use of the information to criminally investigate or prosecute any alcohol or drug abuse patient.[facility] HospitalIn the event this information is protected by the Federal Confidentiality of Alcohol and Drug Abuse Patient Records regulations: The Federal rules restrict any use of the information to criminally investigate or prosecute any alcohol or drug abuse patient.[facility] HospitalIn the event this information is protected by the Federal Confidentiality of Alcohol and Drug Abuse Patient Records regulations: The Federal rules restrict any use of the information to criminally investigate or prosecute any alcohol or drug abuse patient.[facility] HospitalIn the event this information is protected by the Federal Confidentiality of Alcohol and Drug Abuse Patient Records regulations: The Federal rules restrict any use of the information to criminally investigate or prosecute any alcohol or drug abuse patient.[facility] HospitalIn the event this information is protected by the Federal Confidentiality of Alcohol and Drug Abuse Patient Records regulations: The Federal rules restrict any use of the information to criminally investigate or prosecute any alcohol or drug abuse patient.[facility] HospitalIn the event this information is protected by the Federal Confidentiality of Alcohol and Drug Abuse Patient Records regulations: The Federal rules restrict any use of the information to criminally investigate or prosecute any alcohol or drug abuse patient.[facility] HospitalIn the event this information is protected by the Federal Confidentiality of Alcohol and Drug Abuse Patient Records regulations: The Federal rules restrict any use of the information to criminally investigate or prosecute any alcohol or drug abuse patient.[facility] HospitalIn the event this information is protected by the Federal Confidentiality of Alcohol and Drug Abuse Patient Records regulations: The Federal rules restrict any use of the information to criminally investigate or prosecute any alcohol or drug abuse patient.[facility] HospitalIn the event this information is protected by the Federal Confidentiality of Alcohol and Drug Abuse Patient Records regulations: The Federal rules restrict any use of the information to criminally investigate or prosecute any alcohol or drug abuse patient.[facility] HospitalIn the event this information is protected by the Federal Confidentiality of Alcohol and Drug Abuse Patient Records regulations: The Federal rules restrict any use of the information to criminally investigate or prosecute any alcohol or drug abuse patient.[facility] HospitalIn the event this information is protected by the Federal Confidentiality of Alcohol and Drug Abuse Patient Records regulations: The Federal rules restrict any use of the information to criminally investigate or prosecute any alcohol or drug abuse patient.[facility] HospitalIn the event this information is protected by the Federal Confidentiality of Alcohol and Drug Abuse Patient Records regulations: The Federal rules restrict any use of the information to criminally investigate or prosecute any alcohol or drug abuse patient.[facility] HospitalIn the event this information is protected by the Federal Confidentiality of Alcohol and Drug Abuse Patient Records regulations: The Federal rules restrict any use of the information to criminally investigate or prosecute any alcohol or drug abuse patient.[facility] HospitalIn the event this information is protected by the Federal Confidentiality of Alcohol and Drug Abuse Patient Records regulations: The Federal rules restrict any use of the information to criminally investigate or prosecute any alcohol or drug abuse patient.[facility] HospitalIn the event this information is protected by the Federal Confidentiality of Alcohol and Drug Abuse Patient Records regulations: The Federal rules restrict any use of the information to criminally investigate or prosecute any alcohol or drug abuse patient.[facility] HospitalIn the event this information is protected by the Federal Confidentiality of Alcohol and Drug Abuse Patient Records regulations: The Federal rules restrict any use of the information to criminally investigate or prosecute any alcohol or drug abuse patient.[facility] HospitalIn the event this information is protected by the Federal Confidentiality of Alcohol and Drug Abuse Patient Records regulations: The Federal rules restrict any use of the information to criminally investigate or prosecute any alcohol or drug abuse patient.[facility] HospitalIn the event this information is protected by the Federal Confidentiality of Alcohol and Drug Abuse Patient Records regulations: The Federal rules restrict any use of the information to criminally investigate or prosecute any alcohol or drug abuse patient.[facility] HospitalIn the event this information is protected by the Federal Confidentiality of Alcohol and Drug Abuse Patient Records regulations: The Federal rules restrict any use of the information to criminally investigate or prosecute any alcohol or drug abuse patient.[facility] HospitalIn the event this information is protected by the Federal Confidentiality of Alcohol and Drug Abuse Patient Records regulations: The Federal rules restrict any use of the information to criminally investigate or prosecute any alcohol or drug abuse patient.[facility] HospitalIn the event this information is protected by the Federal Confidentiality of Alcohol and Drug Abuse Patient Records regulations: The Federal rules restrict any use of the information to criminally investigate or prosecute any alcohol or drug abuse patient.[facility] HospitalIn the event this information is protected by the Federal Confidentiality of Alcohol and Drug Abuse Patient Records regulations: The Federal rules restrict any use of the information to criminally investigate or prosecute any alcohol or drug abuse patient.[facility] HospitalIn the event this information is protected by the Federal Confidentiality of Alcohol and Drug Abuse Patient Records regulations: The Federal rules restrict any use of the information to criminally investigate or prosecute any alcohol or drug abuse patient.[facility] HospitalIn the event this information is protected by the Federal Confidentiality of Alcohol and Drug Abuse Patient Records regulations: The Federal rules restrict any use of the information to criminally investigate or prosecute any alcohol or drug abuse patient.[facility] HospitalIn the event this information is protected by the Federal Confidentiality of Alcohol and Drug Abuse Patient Records regulations: The Federal rules restrict any use of the information to criminally investigate or prosecute any alcohol or drug abuse patient.[facility] HospitalIn the event this information is protected by the Federal Confidentiality of Alcohol and Drug Abuse Patient Records regulations: The Federal rules restrict any use of the information to criminally investigate or prosecute any alcohol or drug abuse patient.[facility] HospitalIn the event this information is protected by the Federal Confidentiality of Alcohol and Drug Abuse Patient Records regulations: The Federal rules restrict any use of the information to criminally investigate or prosecute any alcohol or drug abuse patient.[facility] HospitalIn the event this information is protected by the Federal Confidentiality of Alcohol and Drug Abuse Patient Records regulations: The Federal rules restrict any use of the information to criminally investigate or prosecute any alcohol or drug abuse patient.[facility] HospitalIn the event this information is protected by the Federal Confidentiality of Alcohol and Drug Abuse Patient Records regulations: The Federal rules restrict any use of the information to criminally investigate or prosecute any alcohol or drug abuse patient.[facility] HospitalIn the event this information is protected by the Federal Confidentiality of Alcohol and Drug Abuse Patient Records regulations: The Federal rules restrict any use of the information to criminally investigate or prosecute any alcohol or drug abuse patient.[facility] HospitalIn the event this information is protected by the Federal Confidentiality of Alcohol and Drug Abuse Patient Records regulations: The Federal rules restrict any use of the information to criminally investigate or prosecute any alcohol or drug abuse patient.[facility] HospitalIn the event this information is protected by the Federal Confidentiality of Alcohol and Drug Abuse Patient Records regulations: The Federal rules restrict any use of the information to criminally investigate or prosecute any alcohol or drug abuse patient.[facility] HospitalIn the event this information is protected by the Federal Confidentiality of Alcohol and Drug Abuse Patient Records regulations: The Federal rules restrict any use of the information to criminally investigate or prosecute any alcohol or drug abuse patient.[facility] HospitalIn the event this information is protected by the Federal Confidentiality of Alcohol and Drug Abuse Patient Records regulations: The Federal rules restrict any use of the information to criminally investigate or prosecute any alcohol or drug abuse patient.[facility] Goals (unrecognized section and content) Goals may [...] BE BASED ON THE PRIMARY CLINICAL RECORDS. [facility]. provides no warranty or guarantee of the accuracy or completeness of information in this document.
--- NOTE | 2025-05-06 08:42 | ED.VIS.DYS ---
HPI History of Present Illness Chief Complaint: Shortness of Breath Informant: patient, spouse/S.O. and family Narrative Narrative: 79-year-old male presenting to the emergency room with a chief complaint of hemoptysis. Patient states that he has a history of colon cancer with metastasis to the liver and the lung. He had chemotherapy 2 weeks ago with [facility] Dr. Chris Moran. He states he is due for another round of chemotherapy next week. States of the past 2 days has had a worsening cough. states he coughed during the night. This morning upon waking he coughed and noted some blood with the sputum. This happened only 1 time. He denies any fever. He does not wear home oxygen. states that he is short of breath. He denies any pain. No history of VTE. He is not anticoagulated. No recent surgeries. Patient reported that he received a blood transfusion a couple weeks ago. I see a hemoglobin level of 7.3 on 20 April of this year [facility] Medical History Colon cancer metastasized to multiple sites Anemia Pneumonia Sleep apnea Colon cancer GERD (gastroesophageal reflux disease) High cholesterol HTN (hypertension) Home Medications ?Medication ?Instructions ?Recorded ?Last Taken ?Type aspirin 81 mg tablet,delayed 81 mg PO DAILY 01/07/22 01/08/25 History release omeprazole 40 mg capsule,delayed 40 mg PO DAILY 01/07/22 01/08/25 History release pioglitazone 30 mg tablet 30 mg PO DAILY 01/07/22 01/08/25 History rosuvastatin 10 mg tablet 10 mg PO DAILY 01/07/22 01/09/25 History mometasone 50 mcg/actuation nasal 2 spray intranasal DAILY 02/01/24 01/08/25 History spray ondansetron HCl 8 mg tablet 8 mg PO Q8H PRN nausea and vomiting 02/01/24 Unknown History prochlorperazine maleate 10 mg 10 mg PO Q6H PRN nausea and 02/01/24 Unknown History tablet vomiting zolpidem 10 mg tablet 10 mg PO QHS PRN PRN sleep 02/01/24 Unknown History insulin glargine 100 unit/mL (3 20 unit subcut DAILY 11/24/24 Unknown History mL) subcutaneous pen (Lantus Solostar U-100 Insulin) acyclovir 400 mg tablet 400 mg PO BID 01/09/25 01/09/25 History amoxicillin 875 mg-potassium 1 tab PO BID 01/09/25 Unknown History clavulanate 125 mg tablet azithromycin 250 mg tablet 250 mg PO UD 01/09/25 Unknown History hydrochlorothiazide 12.5 mg tablet 12.5 mg PO DAILY 01/09/25 01/09/25 History magnesium chloride 71.5 mg 71.5 mg PO BID 01/09/25 01/09/25 History (magnesium chloride) tablet,delayed release (Slow-Mag) mirtazapine 15 mg tablet 15 mg PO QHS 01/09/25 Unknown History potassium chloride 10 mEq 10 meq PO BID 01/09/25 01/09/25 History tablet,extended release amoxicillin 875 mg-potassium 1 tab PO Q12H #20 tabs 03/24/25 Unknown Rx clavulanate 125 mg tablet hydrocodone-acetaminophen 5-325mg 1 tab PO Q6H PRN PRN Pain 5 days 03/24/25 Unknown Rx 5mg-325mg #20 TABLETS Allergy/AdvReac Type Severity Reaction Status Date / Time lisinopril Allergy Severe Angioedema Verified 05/06/25 08:26 metformin Allergy Upset Verified 05/06/25 08:26 Stomach Surgical History History of ankle surgery History of knee replacement History of appendectomy History of colon resection Social History housing: house Smoking Status: Former smoker ROS ROS ED Constitutional Constitutional ED: Reports weight loss; Denies chills or fever(s) Eyes Eyes: Denies change in vision or diplopia ENT ENT ED: Denies ear pain, rhinorrhea or sore throat Cardiovascular Cardiovascular: Denies chest pain, orthopnea, palpitations or racing heartbeat Respiratory/Chest Respiratory/Chest: Reports cough, dyspnea, dyspnea on exertion, sputum and other Details: Hemoptysis ; Denies orthopnea Gastrointestinal Gastrointestinal: Reports nausea; Denies abdominal pain, diarrhea or vomiting Genitourinary Genitourinary ED: Denies dysuria, hematuria or urinary frequency Musculoskeletal Musculoskeletal: Denies arthralgias, back pain, myalgias or neck pain Integumentary Denies abscess or rash Neurologic Neurologic: Denies headache(s), paresthesias or weakness Psychiatric Psychiatric: Denies anxiety, depression, suicidal ideation or suicidal thoughts Endocrine Endocrinology: Denies polydipsia, polyphagia or polyuria Allergic/Immunologic Allergic/Immunologic ED: Denies mouth swelling, tongue swelling or urticaria EXAM Physical Exam Const Vital Signs: 05/06/25 08:26 05/06/25 08:30 05/06/25 08:30 Temperature 98.7 F 97.4 F L Temperature Source Oral Oral Pulse Rate 93 86 Respiratory Rate 18 18 Respiratory Effort Normal Respiratory Depth Normal Respiratory Pattern Normal Blood Pressure 101/54 L 113/61 Blood Pressure Mean 69 78 Pulse Ox 92 96 Oxygen Delivery Method Room Air Room Air Room Air 05/06/25 09:39 05/06/25 10:41 Temperature 97.4 F L 97.4 F L Temperature Source Oral Oral Pulse Rate 74 78 Respiratory Rate 18 18 Respiratory Effort Respiratory Depth Respiratory Pattern Blood Pressure 101/56 L 112/55 L Blood Pressure Mean 71 74 Pulse Ox 95 97 Oxygen Delivery Method Room Air Room Air Positive well nourished and well developed General Appearance ED: well developed and NAD HEENT Reports normocephalic, head/scalp atraumatic and moist mucous membranes HEENT Narrative: Oral pharyngeal exam appears normal Eyes PERRL and EOMs intact bilaterally Neck no lymphadenopathy, supple and no JVD Chest Wall Chest Narrative: Left-sided chest port without erythema or swelling Resp normal respiratory effort and clear to auscultation bilaterally Cardio regular rate, regular rhythm and no murmurs GI normal to inspection, nondistended, normoactive bowel sounds and non-tender Palpation: soft Back/Spine no CVA tenderness and normal ROM Extremity normal to inspection General Extremety ED: Negative for edema General Extremity: Negative for edema Neuro oriented x3 and CN's II-XII intact bilaterally Sensorium / Orientation: alert Motor Exam: strength 5/5 throughout Psych Psych Narrative: Flat affect Mood & Affect: depressed; Negative for tearful Skin no rashes or lesions noted and no wounds MDM MDM MDM Narrative Medical decision making narrative: Differential diagnosis includes but not limited to pulmonary hemorrhage anomalous vessel pulmonary embolism pneumonia pleural effusion anemia Basic blood work shows a white count of 2.9 hemoglobin of 6.1 and platelet count of 207. CMP with a glucose of 171 and albumin of 3 total protein is 7.8. CTA of the chest was obtained. There is no obvious pulmonary hemorrhage pneumonia. Metastasis is reported by radiology is stable since last examination. Patient has not had any further hemoptysis he does continue to have cough with the occasional sputum. Patient has been hemodynamically stable. I reviewed the above findings including the anemia with the patient. We talked about transfusion at this time he does not wish a transfusion. He would like to discuss with Dr. Moran regarding transfusion as well as whether or not he should start his new oral chemotherapy on Thursday. Dr. Moran is not on-call today. Patient states that as he has not had any further bleeding does not wish a transfusion he would prefer to go home. I think this is a reasonable choice and he has capacity to make this decision. I will request that this dictation go to Dr. Moran. History & Record Review Discussion w/independent historian: Patient and Family Additional record(s) reviewed:: Prior outpatient record, Prior ED visit and Prior labs Lab Data Attestation: I reviewed the patient's lab results. Labs: Laboratory Results - last 24 hr 05/06/25 08:55 WBC 2.9 L RBC 2.39 L Hgb 6.1 L Hct 20.7 L MCV 86.6 MCH 25.5 L MCHC 29.5 L RDW Std Deviation 64.9 H RDW Coeff of Micky 21.8 H Plt Count 207 MPV 9.8 Immature Gran % (Auto) 0.700 Neut % (Auto) 66.4 Lymph % (Auto) 15.4 L Ulster % (Auto) 15.1 H Eos % (Auto) 1.7 Baso % (Auto) 0.7 Absolute Neuts (auto) 1.9 L Absolute Lymphs (auto) 0.45 L Nucleated RBC % 0 Differential Comment SCANNED Polychromasia RARE Anisocytosis 2+ Microcytosis 1+ Macrocytosis 1+ PT 15.7 H INR 1.2 APTT 39.4 H Sodium 132 L Potassium 3.4 Chloride 95 L Carbon Dioxide 26.0 Anion Gap 11 BUN 15 Creatinine 1.01 Estim Creat Clear Calc 53.28 Est GFR (MDRD) Non-Af 77 BUN/Creatinine Ratio 14.5 Glucose 171 H Calcium 9.0 Total Bilirubin 1.22 AST 29 ALT 10 Alkaline Phosphatase 119 Total Protein 7.8 Albumin 3.0 L Globulin 4.9 H Albumin/Globulin Ratio 0.6 L Radiography Diagnostic Testing: Clinical Impression(s) from Imaging Studies Chest CTA 11/08/25 09:20 IMPRESSION: No evidence of pulmonary embolism. Stable pulmonary metastasis. Reading Location: [facility] Discharge Plan Triage Chief Complaint: Shortness of Breath ED Provider: Pravin Pereira Dx/Rx/DC Orders Clinical Impression: Metastatic cancer to lung, Metastatic colon cancer to liver, Anemia, Cough with hemoptysis Instructions: ED Hemoptysis Prescriptions: No Action omeprazole 40 mg Capsule,Delayed Release(Dr/Ec) 40 mg PO DAILY aspirin 81 mg Tablet,Delayed Release (Dr/Ec) 81 mg PO DAILY pioglitazone 30 mg Tablet 30 mg PO DAILY rosuvastatin 10 mg Tablet 10 mg PO DAILY insulin glargine [Lantus Solostar U-100 Insulin] 100 unit/mL (3 mL) insulin pen 20 unit SUBCUT DAILY Patient Comments: USE 20 UNITS SUBCUTANEOUSLY ONCE A DAY IF SUGAR LEVELS ARE OVER 200 IN THE MORNING BEFORE BREAKFAST states hasn't had insulin since he had chemo potassium chloride 10 mEq tablet extended release 10 meq PO BID acyclovir 400 mg tablet 400 mg PO BID hydrochlorothiazide 12.5 mg tablet 12.5 mg PO DAILY Slow-Mag 71.5 mg tablet,delayed release (DR/EC) 71.5 mg PO BID azithromycin 250 mg tablet 250 mg PO UD Patient Comments: has not started yet mirtazapine 15 mg tablet 15 mg PO QHS amoxicillin-pot clavulanate 875-125 mg tablet 1 tab PO BID Patient Comments: has not started yet amoxicillin-pot clavulanate 875-125 mg tablet 1 tab PO Q12H Qty: 20 0RF hydrocodone-acetaminophen 5-325 mg tablet 1 tab PO Q6H PRN PRN (Reason: Pain) 5 Days Qty: 20 0RF ondansetron HCl 8 mg tablet 8 mg PO Q8H PRN (Reason: nausea and vomiting) Patient Comments: TAKE 1 TABLET BY MOUTH EVERY 8 HOURS NEEDED FOR NAUSEA AND VOMITING prochlorperazine maleate 10 mg tablet 10 mg PO Q6H PRN (Reason: nausea and vomiting) Patient Comments: TAKE 1 TABLET BY MOUTH EVERY 6 HOURS NEEDED mometasone 50 mcg/actuation spray,non-aerosol 2 spray INTRANASAL DAILY Patient Comments: USE 1 SPRAY(S) IN EACH NOSTRIL TWICE DAILY zolpidem 10 mg tablet 10 mg PO QHS PRN PRN (Reason: sleep) Patient Comments: TAKE 1 TABLET BY MOUTH AT BEDTIME Primary Care Provider: Chaitanya Mazariegos Referrals: Chaitanya Mazariegos MD [Primary Care Provider, Family Practice] Chris Moran DO [Med Staff - Active Staff, Oncology] - As soon as possible Print Language: [place] Disposition Disposition: Home, Self Care
[2025-05-06 09:16] LABS: Hematocrit 20.7 % (40-54); Hemoglobin 6.1 g/dL (13.0-16.5); Immature Granulocytes Count 0.020 X10^3/uL (0.0-0.0); Mean Corp Hgb Conc 29.5 g/dL (32-36); Mean Corpuscular Volume 86.6 fL (80-94); Mean Platelet Vol. 9.8 fl (6.2-12.0); NRBC Flagged by Analyzer 0 % (0-5); POSITIVE DIFFERENTIAL YES; POSITIVE MORPHOLOGY YES; Platelet Count 207 K/mm3 (150-450); RBC Distribution Width CV 21.8 % (11.6-14.6); RBC Distribution Width SD 64.9 fl (35.1-43.9); Red Blood Count 2.39 M/mm3 (4.6-6.2); White Blood Count 2.9 K/mm3 (4.4-11.0)
--- NOTE | 2025-05-06 09:20 | CT_ITS ---
PROCEDURE: CTA CHEST W/WO CONTRAST 05/06/2025 REASON FOR EXAM: HEMOPTYSIS LUNG/LIVER METS TECHNIQUE: Procedure Code: [id number] Modality: CT Procedure: CTA CHEST W/WO CONTRAST Multiplanar Sagittal and Coronal images were obtained. CONTRAST: Isovue 370 VOLUME: 100 mL One or more dose reduction techniques were used (e.g., Automated exposure control, adjustment of the mA and/or kV according to patient size, use of iterative reconstruction technique). RADIATION DOSE SUMMARY: CTDlvol: 9.4 mGy DLP: 339.27 mGycm COMPARISON: CTA chest March 24, 2025. # of known CTs in the past 12 months: 1 # of known Cardiac Nuclear Medicine Studies in the past 12 months: 1 FINDINGS: Thoracic Aorta: No aneurysm. No dissection. Heart: Mild cardiomegaly. Atherosclerotic calcifications of the coronary arteries. Pulmonary Vessels: No evidence of pulmonary embolism. Hardware: None. Lymph nodes: No lymphadenopathy. Lungs and Airways: Stable multiple pulmonary masses with the largest measures 7.2 cm in the left lower lobe. Pleura: No pleural effusion or pneumothorax. Upper Abdomen: Multiple hepatic metastasis. Bones: No acute or suspicious bony abnormalities. CT/CTA Chest W/WO Contrast IMPRESSION: No evidence of pulmonary embolism. Stable pulmonary metastasis. Reading Location: [facility]
[2025-05-06 09:25] LABS: Differential Indicated SCAN CRITERIA MET
[2025-05-06 09:26] LABS: AST(SGOT) 29 U/L (<=37); Alanine Aminotransfer ALT/SGPT 10 U/L (<=46); Albumin, Serum 3.0 g/dL (3.4-4.8); Alkaline Phosphatase 119 U/L (40-129); Anion Gap 11 (5-15); BUN 15 mg/dL (4-19); BUN/Creat Ratio 14.5 RATIO (10-20); Calcium,Total 9.0 mg/dL (7.6-11.0); Carbon Dioxide 26.0 mmol/L (21.0-32.0); Chloride 95 mmol/L (98-108); Estimated Creatinine Clearance 53.28 ml/min (50-250); Globulin 4.9 g/dL (2.2-4.2); Glucose 171 mg/dL (70-99); Potassium 3.4 mmol/L (3.3-5.1)
[2025-05-06 09:39] VITALS: BP 101/56; PULSE 74; RESP 18; TEMP 36.3; O2SAT 95
[2025-05-06 09:41] LABS: Prothrombin Time (Protime)PT. 15.7 SECONDS (11.7-14.9)
[2025-05-06 09:42] LABS: Partial Thromboplast Time 39.4 Seconds (24.1-36.2)
--- NOTE | 2025-05-06 09:48 | CM.ED ---
Social Work Date of referral: 05/06/25 Reason for referral: Advanced Care Directives (ACD's) not on file. Referred by: Social Work Identification Patient provided consent to social work visit. Clinical Documentation Clerk requested a copy of ACD's which patient agreed to bring in. Patient did have a copy of his DNRCC which social service manager made a copy of and placed in chart. Ariadna Duvall, FRATERNITY ADVISER, HOME MORTGAGE DISCLOSURE ACT SPECIALIST
[2025-05-06 10:00] LABS: Anisocytosis 2+; Differential Comment SCANNED
[2025-05-06 10:01] LABS: Macrocytosis 1+; Microcytosis 1+; Polychromasia RARE
[2025-05-06 10:41] VITALS: BP 112/55; PULSE 78; RESP 18; TEMP 36.3; O2SAT 97
[2025-05-06 10:52] VITALS: BP 98/58; PULSE 77; RESP 18; TEMP 36.4; O2SAT 96
== END 2025-05-06 11:04 | disposition home or self-care (01) ==
PROVIDERS: Emergency Provider Emergency Medicine; PCP Family Medicine; Visit Provider Emergency Medicine
DX: C78.00 Secondary malignant neoplasm of unspecified lung (principal); C78.5 Secondary malignant neoplasm of large intestine and rectum; C18.9 Malignant neoplasm of colon, unspecified; I10 Essential (primary) hypertension; F32.A Depression, unspecified; Z87.891 Personal history of nicotine dependence; D64.9 Anemia, unspecified; E78.00 Pure hypercholesterolemia, unspecified; R04.2 Hemoptysis; K21.9 Gastro-esophageal reflux disease without esophagitis
CPT/HCPCS: 36591; 71275; 80053; 85025; 85610; 85730; 99283; Q9967; A4216

== ENCOUNTER → 2025-05-09 | Outpatient (CLI) | payer MEDICARE, SELFPAY ==
[2025-05-09 12:06] VITALS: BP 94/49; PULSE 84; RESP 16; TEMP 36.4; O2SAT 96; BMI 24.6
[2025-05-09 12:41] VITALS: BP 88/43; PULSE 78; RESP 16; TEMP 36.5
[2025-05-09 13:41] VITALS: BP 97/46; PULSE 75; RESP 16; TEMP 36.5
[2025-05-09 14:17] VITALS: BP 99/42; PULSE 79; RESP 16; TEMP 36.5; O2SAT 100
== END | disposition home or self-care (01) ==
LOC: LABSPEC 11:34
PROVIDERS: PCP Family Medicine; Referring Provider Internal Medicine Hematology & Oncology; Visit Provider Internal Medicine Hematology & Oncology
DX: D64.81 Anemia due to antineoplastic chemotherapy (principal); T45.1X5A Adverse effect of antineoplastic and immunosuppressive drugs, initial encounter
CPT/HCPCS: 36430; 86850; 86870; 86900; 86901; 86902; 86905; 86920; 86921; 86922; P9016; A4216

== ENCOUNTER 2025-05-18 11:24 | Outpatient (CLI) | payer MEDICARE, SELFPAY ==
[2025-05-18 11:44] VITALS: BP 93/53; PULSE 73; RESP 16; TEMP 35.8; O2SAT 97; BMI 23.9
[2025-05-18 12:06] VITALS: BP 100/48; PULSE 70; RESP 16; TEMP 35.9
[2025-05-18 13:06] VITALS: BP 97/51; PULSE 68; RESP 16; TEMP 35.8; O2SAT 98
[2025-05-18 13:38] VITALS: BP 97/50; PULSE 68; RESP 16; TEMP 35.8; O2SAT 98
== END 2025-05-18 23:59 | disposition home or self-care (01) ==
LOC: MEDOUTP 11:24
PROVIDERS: PCP Family Medicine; Referring Provider Internal Medicine Hematology & Oncology; Visit Provider Internal Medicine Hematology & Oncology
DX: D64.81 Anemia due to antineoplastic chemotherapy (principal); C79.9 Secondary malignant neoplasm of unspecified site; C18.0 Malignant neoplasm of cecum
CPT/HCPCS: 36430; 86850; 86870; 86880; 86900; 86901; 86902; 86920; 86922; P9016; A4216

== ENCOUNTER 2025-06-02 08:00 | Outpatient (CLI) | payer MEDICARE, SELFPAY ==
[2025-06-02 08:20] VITALS: BP 85/45; PULSE 85; RESP 16; TEMP 36.2; O2SAT 96; BMI 24.1
[2025-06-02 08:51] VITALS: BP 85/43; PULSE 76; RESP 16; TEMP 36.3; O2SAT 97
[2025-06-02 10:03] VITALS: BP 85/40; PULSE 69; RESP 16; TEMP 36; O2SAT 96
[2025-06-02 10:42] VITALS: BP 97/48; PULSE 70; RESP 16; TEMP 35.9; O2SAT 96
[2025-06-02 11:39] VITALS: BP 111/52; PULSE 72; RESP 16; TEMP 36.4; O2SAT 95
== END 2025-06-02 23:59 | disposition home or self-care (01) ==
LOC: MEDOUTP 08:00
PROVIDERS: PCP Family Medicine; Referring Provider Internal Medicine Hematology & Oncology; Visit Provider Internal Medicine Hematology & Oncology
DX: D64.81 Anemia due to antineoplastic chemotherapy (principal)
CPT/HCPCS: 36430; 86850; 86900; 86901; 86902; 86920; 86922; P9016; A4216